=== PATIENT | female | born 1980 | race African-American/Black ===

== ENCOUNTER 2017-12-01 01:18 | Emergency (ER) | payer OTHER ==
--- OUTSIDE RECORDS SUMMARY | 2017-12-01 01:21 | XMS REPORT | Clinical Summary ---
:1980 Author Organization [facility] Address [address] [place] [address] Phone Care Team Providers Name Role Phone Unavailable Primary Care Provider Unavailable Allergies Active Allergy Reactions Severity Noted Date Comments Tramadol Other (See Comments) High 02/21/2014 Seizure Morphine Other (See Comments) 11/27/2013 seizures Butorphanol Tartrate Other (See Comments) 11/27/2013 seizures Eij-[id number]-Ujn-[id number]-Qkghr-Jesb 10/01/2014 seizure Ketorolac Other (See Comments) 11/27/2013 seizures Trazodone 10/01/2014 seizure Ondansetron Hcl (Pf) Other (See Comments) 11/27/2013 seizures Current Medications Prescription Sig. Disp. Refills Start Date End Date Status folic acid (FOLVITE) Take 1 mg by Active 1 MG tablet mouth daily. hydroxyurea (DROXIA) Take 500 mg by Active 500 mg capsule mouth 2 (two) times daily . metoprolol Take 25 mg by Active (LOPRESSOR) 25 MG mouth 3 (three) tablet times daily. oxymorphone (OPANA Take 40 mg by Active ER) 40 MG 12 hr mouth every 12 tablet (twelve) hours. ALPRAZolam (XANAX) 2 Take 2 mg by Active MG tablet mouth 2 (two) times daily as needed for Sleep. promethazine Take 25 mg by Active (PHENERGAN) 25 MG mouth every 6 tablet (six) hours as needed for Nausea. amLODIPine (NORVASC) Take 5 mg by Active 5 MG tablet mouth daily. HYDROcodone-acetamino Take 2 tablets Active phen (NORCO 10-325) by mouth every 4 10-325 mg per (four) hours as tabletIndications: needed for Pain. Pain mirtazapine (REMERON) Take 45 mg by Active 45 MG mouth nightly. tabletIndications: major depressive disorder levETIRAcetam Take 250 mg by Active (KEPPRA) 250 MG mouth 2 (two) tabletIndications: times daily. Partial Epilepsy Treatment Adjunct triamcinolone Apply topically Active (KENALOG) 0.1 % 3 (three) times lotionIndications: daily. Contact Dermatitis, Skin Rash aspirin 81 MG Take 1 tablet 30 tablet 11 04/06/2016 04/06/2017 chewable tablet (81 mg total) by mouth daily. atorvastatin Take 1 tablet 30 tablet 11 04/06/2016 04/06/2017 (LIPITOR) 80 MG (80 mg total) by tablet mouth nightly. Hospital, Clinic, or Ordered Dose Route Frequency Start Date End Date Status Other Facility Administered Medication promethazine 25 MG IV Once 05/04/2017 Active (PHENERGAN) injection 25 mg heparin (PF) injection 500 Units Cath Once 03/27/2017 03/27/2017 Ended syringe 500 Units sodium chloride 0.9% IV Once 03/28/2017 03/28/2017 Ended (NS) infusion diphenhydrAMINE 25 MG IV Once 03/28/2017 03/28/2017 Ended (BENADRYL) injection 25 mg acetaminophen 650 MG Oral Once 03/28/2017 03/28/2017 Ended (TYLENOL) tablet 650 mg heparin (PF) injection 500 Units Cath PRN 03/28/2017 03/28/2017 Ended syringe 500 Units promethazine IV Once 03/28/2017 03/28/2017 Discontinued (PHENERGAN) 50 mg in sodium chloride 0.9% (NS) 50 mL IVPB promethazine 25 MG IV Once 03/28/2017 03/28/2017 Ended (PHENERGAN) injection 25 mg heparin (PF) injection 500 Units Cath Once 05/03/2017 05/03/2017 Ended syringe 500 Units sodium chloride 0.9% IV Once 05/04/2017 05/04/2017 Ended (NS) infusion diphenhydrAMINE 25 MG IV Once 05/04/2017 05/04/2017 Ended (BENADRYL) injection 25 mg acetaminophen 650 MG Oral Once 05/04/2017 05/04/2017 Ended (TYLENOL) tablet 650 mg heparin (PF) injection 500 Units Cath PRN 05/04/2017 05/04/2017 Ended syringe 500 Units heparin (PF) injection 500 Units Cath Once 09/25/2017 09/25/2017 Ended syringe 500 Units sodium chloride 0.9% IV Once 09/26/2017 09/26/2017 Ended (NS) infusion heparin (PF) injection 500 Units Cath Once PRN 09/26/2017 09/26/2017 Ended syringe 500 Units diphenhydrAMINE 25 MG IV Once 09/26/2017 09/26/2017 Ended (BENADRYL) injection 25 mg acetaminophen 650 MG Oral Once 09/26/2017 09/26/2017 Ended (TYLENOL) tablet 650 mg promethazine 25 MG IV Once 09/26/2017 09/26/2017 Ended (PHENERGAN) injection 25 mg Active Problems Problem Noted Date Sickle cell anemia (HCC) 01/09/2016 Pain 12/01/2013 Sickle cell anemia with crisis ([facility]) 11/30/2013 Iron overload due to repeated red blood cell transfusions 11/29/2013 History of drug abuse 11/29/2013 Sickle cell crisis (HCC) 11/28/2013 Total body pain 11/28/2013 Cough 11/28/2013 Encounters Date Type Specialty Care Team Description 11/22/2017 Procedure Pass 11/22/2017 Surgery Manny Fuentes MD 11/04/2017 - Hospital Encounter Oncology Lise De Jesus MD 11/26/2017 Vipul Mcgovern MD 09/26/2017 Procedure visit Oncology Kwesi Guaman Symptomatic anemia MD Justin (Primary Dx) Yaz Quan RN 09/25/2017 Procedure visit Oncology Kwesi Guaman 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) (Primary Traci Obregon, RN Dx) 05/27/2017 - Hospital Encounter Oncology Lise De Jesus MD History of drug abuse 06/06/2017 05/04/2017 Procedure visit Oncology Kwesi Guaman Symptomatic anemia MD Justin (Primary Dx) Traci Obregon, RN 05/03/2017 Procedure visit Oncology Kwesi Guaman Iron overload due to MD Justin repeated red blood Traci Obregon, RN cell transfusions (Primary Dx) 03/28/2017 Procedure visit Oncology Kwesi Guaman 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) (Primary Yaz Quan, Dx) RN 03/27/2017 Procedure visit Oncology Kwesi Guaman 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) (Primary Traci Obregon, RN Dx) after 11/30/2016 Family History Medical History Relation Name Comments Heart disease Father Hypertension Father Hypertension Mother Relation Name Status Comments Father Mother Social History Tobacco Use Types Packs/Day Years Used Date Never Smoker Smokeless Tobacco: Never Used Alcohol Use Drinks/Week oz/Week Comments No Sex Assigned at Date Recorded Not on file Last Filed Vital Signs Vital Sign Reading Time Taken Blood Pressure 107/58 11/26/2017 3:32 PM CDT Pulse 79 11/26/2017 3:32 PM CDT Temperature 36.7 C (98 F) 11/26/2017 3:32 PM CDT Respiratory Rate 20 11/26/2017 3:32 PM CDT Oxygen Saturation 100% 11/26/2017 3:32 PM CDT Inhaled Oxygen Concentration - - Weight 72.5 kg (159 lb 13.3 oz) 11/04/2017 9:54 PM CDT Height 160 cm (5' 3") 11/04/2017 9:54 PM CDT Body Mass Index 28.31 11/04/2017 9:54 PM CDT Plan of Treatment Health Maintenance Due Date Last Done Comments INFLUENZA VACCINE 05/20/2018 Procedures Procedure Name Priority Date/Time Associated Diagnosis Comments R CATH 11/22/2017 1:14 PM CDT chest pain after 11/30/2016 Results CARDIAC CATH REPORT - SCAN (11/27/2017 8:52 PM)Calcium, Ionized (11/25/2017 4: 38 AM)Only the most recent of14 resultswithin the time period is included. Component Value Ref Range Calcium, Ion 1.10 (L) 1.12 - 1.27 mmol/L pH, Blood 7.30 Specimen Performing Laboratory Blood [address] [address] Phosphorus (11/25/2017 4:38 AM)Only the most recent of15 resultswithin the time period is included. Component Value Ref Range Phosphorus 4.7 2.3 - 4.7 mg/dL Specimen Performing Laboratory Blood [address] [address] Magnesium (11/25/2017 4:38 AM)Only the most recent of16 resultswithin the time period is included. Component Value Ref Range Magnesium 1.4 (L) 1.6 - 2.6 mg/dL Specimen Performing Laboratory Blood [address] [address] Basic Metabolic Panel (11/25/2017 4:38 AM)Only the most recent of27 resultswithin the time period is included. Component Value Ref Range Sodium 135 (L) 136 - 145 meq/L Potassium 4.5 3.5 - 5.1 meq/L Chloride 100 98 - 107 meq/L CO2 29 22 - 29 meq/L BUN 19 7 - 21 mg/dL Creatinine 0.76 0.57 - 1.25 mg/dL Glucose 104 70 - 105 mg/dL Calcium 9.3 8.4 - 10.2 mg/dL EGFR 103Comment: ESTIMATED GFR IS NOT ACCURATE mL/min/1.73 sq m CREATININE CLEARANCE IN PREDICTING GLOMERULAR FILTRATION RATE. ESTIMATED GFR IS NOT APPLICABLE FOR DIALYSIS PATIENTS. Specimen Performing Laboratory Blood [address] [address] Uric acid (11/24/2017 5:36 AM) Component Value Ref Range Uric Acid 4.8 2.6 - 7.2 mg/dL Specimen Performing Laboratory Blood [address] [address] Lactate dehydrogenase (LDH) (11/24/2017 5:36 AM) Component Value Ref Range LDH 489 (H) 125 - 220 U/L Specimen Performing Laboratory Blood [address] [address] Creatine Kinase (CK) (11/24/2017 5:36 AM) Component Value Ref Range Total CK 8 (L) 29 - 200 U/L Specimen Performing Laboratory Blood [address] [address] Potassium (11/23/2017 5:35 PM)Only the most recent of3 resultswithin the time period is included. Component Value Ref Range Potassium 5.5 (H) 3.5 - 5.1 meq/L Specimen Performing Laboratory Blood - Central Venous Line [address] [address] Narrative Call if K > 5.4 to renal [phone] CBC with platelet count + automated diff (11/23/2017 4:50 AM)Only the most recent of26 resultswithin the time period is included. Component Value Ref Range WBC 18.3 (H) 3.5 - 10.5 K/L RBC 2.30 (L) 3.93 - 5.22 M/L Hemoglobin 6.5 (L) 11.2 - 15.7 GM/DL Hematocrit 21.1 (L) 34.1 - 44.9 % MCV 91.7 79.4 - 94.8 fL MCH 28.3 25.6 - 32.2 pg MCHC 30.8 (L) 32.2 - 35.5 GM/DL RDW 21.2 (H) 11.7 - 14.4 % Platelets 414 150 - 450 K/CU MM MPV 11.5 9.4 - 12.3 fL nRBC 0 0 - 0 /100 WBC % Neutros 53 % % Lymphs 25 % % Monos 19 % % Eos 2 % % Baso 0 % # Neutros 9.74 (H) 1.56 - 6.13 K/L # Lymphs 4.57 (H) 1.18 - 3.74 K/L # Monos 3.51 (H) 0.24 - 0.36 K/L # Eos 0.29 0.04 - 0.36 K/L # Baso 0.07 0.01 - 0.08 K/L Immature Granulocytes-Relative 1 0 - 1 % Specimen Performing Laboratory Blood [facility] [address] [place] [address] CBC with platelet count + automated diff (11/23/2017 4:50 AM)Only the most recent of26 resultswithin the time period is included. Specimen Performing Laboratory Blood Narrative The following orders were created for panel order CBC with platelet count + automated diff. Procedure Abnormality Status --------- ------ CBC with platelet count ...[[id number]]AbnormalFinal result Please view results for these tests on the individual orders. Electrolytes (11/22/2017 12:30 PM) Component Value Ref Range Sodium 137 136 - 145 meq/L Potassium 5.4 (H) 3.5 - 5.1 meq/L Chloride 100 98 - 107 meq/L CO2 30 (H) 22 - 29 meq/L Specimen Performing Laboratory Blood [address] [address] Narrative Call results [id number] B-type Natriuretic Factor (BNP) (11/21/2017 4:56 AM)Only the most recent of3 resultswithin the time period is included. Component Value Ref Range BNP 120 (H) 0 - 100 pg/mL Specimen Performing Laboratory Blood [address] [address] Blood gas, venous (11/20/2017 6:44 AM) Component Value Ref Range pH, Moises 7.34 7.32 - 7.42 pCO2, Moises 63 (H) 41 - 51 mmHg pO2, Moises 133 (H) 25 - 40 mmHg O2 Sat, Moises 98.4 (H) 40.0 - 70.0 % HCO3, Moises 33 (H) 21 - 29 mmol/L Base Excess, Moises 6.6 (H) -2.0 - 3.0 mmol/L Patient Temperature 37.0 C FIO2 21.0 % Specimen Performing Laboratory Blood [address] [address] Ferritin (11/19/2017 9:46 AM) Component Value Ref Range Ferritin [address] (H) 5 - 275 ng/mL Specimen Performing Laboratory [address] [address] CBC (Hemogram only) (11/19/2017 6:25 AM) Component Value Ref Range WBC 15.3 (H) 3.5 - 10.5 K/L RBC 2.42 (L) 3.93 - 5.22 M/L Hemoglobin 7.1 (L) 11.2 - 15.7 GM/DL Hematocrit 22.5 (L) 34.1 - 44.9 % MCV 93.0 79.4 - 94.8 fL MCH 29.3 25.6 - 32.2 pg MCHC 31.6 (L) 32.2 - 35.5 GM/DL RDW 20.9 (H) 11.7 - 14.4 % Platelets 324 150 - 450 K/CU MM MPV 11.8 9.4 - 12.3 fL nRBC 1 (H) 0 - 0 /100 WBC Specimen Performing Laboratory Blood - Central Venous Line [address] [address] TRANSFUSION SERVICE REPORT - SCAN (11/17/2017 5:40 PM)Only the most recent of23 resultswithin the time period is included.Hepatic function panel (2017 4:51 AM)Only the most recent of2 resultswithin the time period is included. Component Value Ref Range Protein, Total 8.3 6.0 - 8.3 gm/dL Albumin 3.0 (L) 3.5 - 5.0 g/dL Total Bilirubin 1.3 (H) 0.2 - 1.2 mg/dL Bilirubin, Direct 0.7 (H) 0.1 - 0.5 mg/dL Alkaline Phosphatase 217 (H) 40 - 150 U/L AST 106 (H) 5 - 34 U/L ALT 46 6 - 55 U/L Specimen Performing Laboratory Blood - Central Venous Line [address] [address] Prepare RBC (11/16/2017 11:55 PM) Component Value Ref Range Unit ABO O Pos UNIT NUMBER [id number] Status TRANSFUSED Blood Bank Product RED BLOOD CELLS PRODUCT CODE T8550X31 Unit ABO O Pos UNIT NUMBER [id number] Status TRANSFUSED Blood Bank Product RED BLOOD CELLS PRODUCT CODE [id number] CROSSMATCH COMPATIBLE CROSSMATCH COMPATIBLE Specimen Performing Laboratory [employer] [place] XR chest 2 views (11/16/2017 10:46 AM) Specimen Performing Laboratory [facility] Narrative FINAL REPORT Chest two views INDICATION: Fever, chest pain COMPARISON: 11/08/2017 IMPRESSION: The cardiac silhouette is enlarged. There is pulmonary vascular congestion with interstitial reticulation suggesting mild edema. Trace pleural effusions are present with improved basilar opacities, likely atelectasis. Pneumonitis cannot be excluded, however. A Port-A-Cath, osteopenia, and chronic left clavicular fracture are noted. No pneumothorax is seen. Signed: Anselmo Cain MD Report Verified Date/Time:11/16/2017 10:47:19 Reading Location: [facility] Radiology Reading Room Procedure Note Interface, External Ris In - 11/16/2017 10:49 AM CDT FINAL REPORT Chest two views INDICATION: Fever, chest pain COMPARISON: 11/08/2017 IMPRESSION: The cardiac silhouette is enlarged. There is pulmonary vascular congestion with interstitial reticulation suggesting mild edema. Trace pleural effusions are present with improved basilar opacities, likely atelectasis. Pneumonitis cannot be excluded, however. A Port-A-Cath, osteopenia, and chronic left clavicular fracture are noted. No pneumothorax is seen. Signed: Anselmo Cain MD Report Verified Date/Time: 11/16/2017 10:47:19 Reading Location: [facility] Radiology Reading Room mandible less than 4 views (11/16/2017 10:37 AM) Specimen Performing Laboratory GE [facility] Narrative FINAL REPORT Mandible series 5 images INDICATION: Fever, dental caries COMPARISON: None available IMPRESSION: A tongue piercing is present. The maxilla is edentulous. There are mandibular dental caries with periapical lucency on the right suggesting endodontal infection. Maxillofacial CT can be obtained for more sensitive evaluation. The bones appear demineralized. There is cervical spondylosis. The sinuses and mastoid air cells are well aerated. Signed: Anselmo Cain MD Report Verified Date/Time:11/16/2017 12:28:43 Reading Location: [facility] Radiology Reading Room Procedure Note Interface, External Ris In - 11/16/2017 12:30 PM CDT FINAL REPORT Mandible series 5 images INDICATION: Fever, dental caries COMPARISON: None available IMPRESSION: A tongue piercing is present. The maxilla is edentulous. There are mandibular dental caries with periapical lucency on the right suggesting endodontal infection. Maxillofacial CT can be obtained for more sensitive evaluation. The bones appear demineralized. There is cervical spondylosis. The sinuses and mastoid air cells are well aerated. Signed: Anselmo Cain MD Report Verified Date/Time: 11/16/2017 12:28:43 Reading Location: [facility] Reading Room Anti-Mitochondrial Ab, reflex to titer (11/16/2017 9:35 AM) Component Value Ref Range Scan Result Specimen Performing Laboratory Blood - Central Venous Line [facility] [address] [address] Actin (Smooth Muscle) Antibody, IgG (11/16/2017 9:35 AM) Component Value Ref Range Anti-Smooth Muscle Ab 31 (H) See Note: U Comment: Reference Range: <20 NEGATIVE > OR=20 POSITIVE Antibodies recognizing actin are the main component of smooth muscle antibodies associated with autoimmune liver disease. Actin antibodies are found in approximately 75% of patients with autoimmune hepatitis (AIH) type 1, approximately 65% of patients with autoimmune cholangitis, approximately 30% of patients with primary biliary cirrhosis, and approximately 2% of healthy people. High values are closely correlated with AIH type 1. Specimen Performing Laboratory Blood - Central Venous Line [facility] [address] [address] Narrative Performing Lab [facility] [address] [address] Irwin Marquez MD, PhD AMARILYS Titer & Pattern (11/16/2017 9:35 AM) Component Value Ref Range AMARILYS Titer 1:160 AMARILYS Pattern Multiple nuclear dots pattern Specimen Performing Laboratory Blood - Central Venous Line [address] [address] Hepatitis panel, acute (11/16/2017 9:35 AM) Component Value Ref Range Hep A IgM Nonreactive Nonreactive Hep B C IgM Nonreactive Nonreactive Hepatitis C Ab Nonreactive Nonreactive hepatitis B Surface Ag Nonreactive Nonreactive Specimen Performing Laboratory Blood - Central Venous Line [address] [address] Anti-Nuclear Antibody (AMARILYS) (11/16/2017 9:35 AM) Component Value Ref Range AMARILYS Positive (A) Negative Specimen Performing Laboratory Blood - Central Venous Line [address] [address] Manual Differential (11/16/2017 4:23 AM)Only the most recent of16 resultswithin the time period is included. Component Value Ref Range Total Counted WBC Morphology Normal Platelet Morphology Normal Polychromasia 1+ few Sickle Cells 1+ few Target Cells 2+ moderate Specimen Performing Laboratory Blood - Central Venous Line [address] [address] Transfuse Leuko-Red RBC (11/15/2017 11:12 PM)Only the most recent of10 resultswithin the time period is included.Urinalysis w/Microscopic (11/15/2017 6:45 PM)Only the most recent of4 resultswithin the time period is included. Component Value Ref Range Color, UA Yellow Clarity, UA Clear Specific [place], UA 1.006 1.001 - 1.035 pH, UA 7.5 5.0 - 8.0 Protein, UA Negative Negative Glucose, UA Negative Negative Ketones, UA Negative Negative Bilirubin, UA Negative Negative Blood, UA Trace (A) Negative Nitrite, UA Negative Negative Leukocytes, UA Small (A) Negative Urobilinogen, UA 0.2 0.2 - 1.0 mg/dL RBC, UA <1 /HPF WBC, UA 7 /HPF Bacteria, UA Rare Squam Epithel, UA 1 /HPF Specimen Source Urine, Voided Specimen Performing Laboratory Urine - Urine, Voided [address] [address] Prepare Leuko-Red RBC (11/15/2017 1:30 PM)Only the most recent of7 resultswithin the time period is included. Component Value Ref Range Unit ABO O Pos UNIT NUMBER [id number] Status WORK IN PROGRESS Blood Bank Product RED BLOOD CELLS PRODUCT CODE E7775A15 Unit ABO O Pos UNIT NUMBER [id number] Status CANCELED Blood Bank Product RED BLOOD CELLS PRODUCT CODE [id number] Specimen Performing Laboratory Other [facility] [place] XR abdomen / KUB 1 view (11/15/2017 12:05 PM) Specimen Performing Laboratory [facility] Narrative FINAL REPORT Abdomen one view INDICATION: Abdominal pain COMPARISON: 03/29/2016 IMPRESSION: Two frontal images of the abdomen are provided. The liver shadow appears enlarged. Right upper quadrant surgical clips are present. A nonspecific calcification overlies the right lower quadrant. Pelvic calcifications are stable and suggests phleboliths. There is moderate retained colonic feces. The bowel gas pattern is nonspecific. There are nonspecific mild lung base opacities. Signed: Anselmo Cain MD Report Verified Date/Time:11/15/2017 12:43:04 Reading Location: [facility] Radiology Reading Room Procedure Note Interface, External Ris In - 11/15/2017 12:57 PM CDT FINAL REPORT Abdomen one view INDICATION: Abdominal pain COMPARISON: 03/29/2016 IMPRESSION: Two frontal images of the abdomen are provided. The liver shadow appears enlarged. Right upper quadrant surgical clips are present. A nonspecific calcification overlies the right lower quadrant. Pelvic calcifications are stable and suggests phleboliths. There is moderate retained colonic feces. The bowel gas pattern is nonspecific. There are nonspecific mild lung base opacities. Signed: Anselmo Cain MD Report Verified Date/Time: 11/15/2017 12:43:04 Reading Location: [facility] Radiology Reading Room Antibody identification (11/15/2017 11:17 AM)Only the most recent of7 resultswithin the time period is included. Component Value Ref Range ANTIBODY ID (BEAKER) Anti-Bg Anti-Cw Anti-E Anti-S Anti-c COLD ANTIBODY UNID IgG WARM AUTO AB Antibody Consult SIGNED OUTComment: Anti E causes RBC injury, transfuse E negative RBCs.Anti c causes RBC injury, transfuse c negative RBCs. History of anti-S, Cw and Bg.Electronic Signature: Karina Hendrix M.D. Specimen Performing Laboratory [facility] [place] Type and screen, automated (11/15/2017 8:54 AM)Only the most recent of7 resultswithin the time period is included. Component Value Ref Range ABO/RH AUTOMATED (BEAKER) O POSITIVE Ab Scrn POSITIVE Specimen Performing Laboratory Blood [facility] [address] [place] [address] [place] Endovaginal (11/15/2017 7:00 AM) Specimen Performing Laboratory [facility] Narrative FINAL REPORT TECHNIQUE: Transvaginal grayscale ultrasound of the pelvis with color Doppler and spectral Doppler ultrasound of the ovaries. INDICATION: 37-year-old woman with complex ovarian cyst on recent CT. COMPARISON: Abdomen and pelvis CT 11/08/2017. FINDINGS: UTERUS: Prior hysterectomy. OVARIES/ADNEXA: The right ovary measures 2.6 x 2.6 x 2.2 cm and contains a 2.1 x 1.7 x 2 cm structure with areas of fluid as well as areas of hyper echogenicity which likely correlates with fat seen on recent CT. The left ovary is normal in appearance and measures 2.5 x 1.4 x 1.6 cm. Arterial and venous flow detected in both ovaries. PELVIS: Trace free fluid in the right adnexum, nonspecific. IMPRESSION: Complex structure in the right ovary correlating with fat-containing structure seen on recent CT, consistent with a dermoid. Left ovary is unremarkable. RECOMMENDATION: Pelvis MRI with and without intravenous contrast is recommended to further characterize right ovarian dermoid. Signed: Funmilayo Gonzalez MD Report Verified Date/Time:11/15/2017 09:03:15 Reading Location: [address] Ultrasound Reading Room Procedure Note Interface, External Ris In - 11/15/2017 9:05 AM CDT FINAL REPORT TECHNIQUE: Transvaginal grayscale ultrasound of the pelvis with color Doppler and spectral Doppler ultrasound of the ovaries. INDICATION: 37-year-old woman with complex ovarian cyst on recent CT. COMPARISON: Abdomen and pelvis CT 11/08/2017. FINDINGS: UTERUS: Prior hysterectomy. OVARIES/ADNEXA: The right ovary measures 2.6 x 2.6 x 2.2 cm and contains a 2.1 x 1.7 x 2 cm structure with areas of fluid as well as areas of hyper echogenicity which likely correlates with fat seen on recent CT. The left ovary is normal in appearance and measures 2.5 x 1.4 x 1.6 cm. Arterial and venous flow detected in both ovaries. PELVIS: Trace free fluid in the right adnexum, nonspecific. IMPRESSION: Complex structure in the right ovary correlating with fat-containing structure seen on recent CT, consistent with a dermoid. Left ovary is unremarkable. RECOMMENDATION: Pelvis MRI with and without intravenous contrast is recommended to further characterize right ovarian dermoid. Signed: Funmilayo Gonzalez MD Report Verified Date/Time: 11/15/2017 09:03:15 Reading Location: [address] Ultrasound Reading Room Lipase (11/15/2017 5:30 AM) Component Value Ref Range Lipase 95 (H) 8 - 78 U/L Specimen Performing Laboratory Blood - Central Venous Line [address] [address] Urine culture (11/14/2017 6:19 AM)Only the most recent of2 resultswithin the time period is included. Component Value Ref Range Result >100,000 col/mL skin valentino Specimen Performing Laboratory Urine - Urine, Clean Catch [address] [address] Blood culture (11/13/2017 11:20 PM)Only the most recent of2 resultswithin the time period is included. Component Value Ref Range Result No growth in 5 days Specimen Performing Laboratory Blood - Portacath [address] [address] ECHOCARDIOGRAM REPORT - SCAN (11/10/2017 1:20 PM)Comprehensive metabolic panel (11/10/2017 5:56 AM)Only the most recent of4 resultswithin the time period is included. Component Value Ref Range Protein, Total 8.2 6.0 - 8.3 gm/dL Albumin 3.1 (L) 3.5 - 5.0 g/dL Alkaline Phosphatase 154 (H) 40 - 150 U/L Total Bilirubin 1.4 (H) 0.2 - 1.2 mg/dL Sodium 140 136 - 145 meq/L Potassium 4.0 3.5 - 5.1 meq/L Chloride 109 (H) 98 - 107 meq/L CO2 19 (L) 22 - 29 meq/L BUN 21 7 - 21 mg/dL Creatinine 1.27 (H) 0.57 - 1.25 mg/dL Glucose 122 (H) 70 - 105 mg/dL Calcium 8.6 8.4 - 10.2 mg/dL AST 72 (H) 5 - 34 U/L ALT 50 6 - 55 U/L EGFR 57Comment: ESTIMATED GFR IS NOT ACCURATE mL/min/1.73 sq m CREATININE CLEARANCE IN PREDICTING GLOMERULAR FILTRATION RATE. ESTIMATED GFR IS NOT APPLICABLE FOR DIALYSIS PATIENTS. Specimen Performing Laboratory Blood - Central Venous Line [address] [address] 2D Echo W/Doppler(CW/PW/Color) (11/09/2017 6:46 PM) Component Value Ref Range Ejection Fraction Specimen Performing Laboratory [facility] ECHO [facility] MKCKESSON CPACS Narrative Transthoracic Echocardiography Report (TTE) Demographics Patient NameSGATITO, RODRIGODate of Study11/09/2017 DIANA Gender Female Visit [id number] Race Black [id number] Number Date of 1980 [facility] Physician Age 37 year(s) Cutter First Lou Price RDCS Interpreting [facility] Needs to be Pre Physician Read Marlo Maldonado MD FellowVANNA Lorenzana Procedure Type of Study TTE procedure:2DECHO W DOPPLER(CW/PW/COLOR) (STAT) Indications:Shortness of breath. Clinical History SICKLE CELL ANEMIA;ENDOCARDITIS;STROKE HGB 6.6 HCT 20.4 % Height: 63 inches Weight: 72.12 kg (159 lbs) BSA: 1.75 m^2 BMI: 28.17 kg/m^2 HR: 94 bpm BP: 148/98 mmHg Summary The left ventricle is chamber size (by vol index) is normal (female - LVED vol - 29-61ml/m2). Borderline concentric LV hypertrophy. All of the LV segments contract normally . Global LV systolic function normal . LVEF by Stanley's method of disk assessment is normal (60%) . LV diastolic function is indeterminate. RV chamber size is normal . Global RV systolic function is normal . Estimated peak systolic PA pressure is 50-55 mmHg . No significant pericardial effusion is visualized. The estimated RA pressure by IVC dynamics 16-20mmHg . Previous Study In comparison with the prior exam 03/29/2016 the following changes are noted: increase in TR . Signature Findings Left Ventricle The left ventricle is chamber size (by vol index) is normal (female - LVED vol - 29-61ml/m2). Borderline concentric LV hypertrophy. All of the LV segments contract normally . Global LV systolic function normal . LVEF by Stanley's method of disk assessment is normal (60%) . LV diastolic function is indeterminate. Left AtriumLA size is mildly enlarged (35-41 ml/m2) . Right VentricleRV chamber size is normal . Global RV systolic function is normal . Right Atrium RA size is mildly dilated. Aortic Valve Normal AoV structure and function. Mitral Valve Normal MV structure and function. Tricuspid ValveModerate tricuspid regurgitation. Estimated peak systolic PA pressure is 50-55 mmHg . Pulmonic Valve PV is not well visualized. A trace of pulmonary regurgitation. AortaAortic root size (SInus of Valsalva diameter) is normal . PericardiumNo significant pericardial effusion is visualized. IVC/SVC/PA/PV/PleuralThe estimated RA pressure by IVC dynamics 16-20mmHg . Chambers/Structures Left Atrium LA Volume: 65.17 ml LA Area: 22.65 cm^ 2 LA Vol. Index: 37 ml/m^2 Left Ventricle LVIDd: 5.09 cm LVIDs: 3.2 cm LV Septum Diastolic: 1.17 cm LV PW Diastolic: 1.06 cmLV FS: 37.1 % LVEDV Stanley's:102.27 ml LVESV Stanley's:40.53 mlLVEDVI: 58 ml/ m^2 LVEF Stanley's: 60.4 %LVESVI: 23 ml/m^2 LVOT Diameter: 1.95 cm Doppler/Quantitative Measurements Mitral Valve MV Peak E-Wave: 0.82 m/sMV Peak A-Wave: 0.8 m/s E/A Ratio: 1.03 Peak Gradient: 2.69 mmHg MV Kuldip. Peak: Tissue Doppler E' Lateral Velocity: 0.13 m/s E/E': 6.13 Aortic Valve Peak Velocity: 1.85 m/sMean Velocity: 1.27 m/s Peak Gradient: 13.64 mmHgMean Gradient: 7.16 mmHg AV Area (continuity): 1.94 cm^2 AV VTI: 35.76 cm AV DVI: 0.65 LVOT Peak Velocity: 1.28 m/s Peak Gradient: 6.53 mmHg Mean Velocity: 0.81 m/s Mean Gradient: 3.12 mmHg LVOT Diameter: 1.95 cmLVOT VTI: 23.22 cm LVOT Area: 2.99 cm^2LVOT SV:69.31 ml LVOT CO: 6.52 l/min LVOT CI: 3.73 l/min/m^2 Tricuspid Valve TR Velocity: 2.91 m/s TR Gradient: 33.98 mmHg Procedure Note Interface, External Ris In - 11/10/2017 12:55 PM CDT Transthoracic Echocardiography Report (TTE) Demographics Patient Name RODRIGO BERG Date of Study 11/09/2017 DIANA Gender Female Visit Number [id number] Race Black Room Number [id number] Number Date of 1980 Referring Neal Lezama Physician Age 37 year(s) Cutter First Lou Price RDCS Interpreting [facility] Needs to be Pre Physician Read Marlo Maldonado MD Fellow VANNA Lorenzana Procedure Type of Study TTE procedure:2DECHO W DOPPLER(CW/PW/COLOR) (STAT) Indications:Shortness of breath. Clinical History SICKLE CELL ANEMIA;ENDOCARDITIS;STROKE HGB 6.6 HCT 20.4 % Height: 63 inches Weight: 72.12 kg (159 lbs) BSA: 1.75 m^2 BMI: 28.17 kg/m^2 HR: 94 bpm BP: 148/98 mmHg Summary The left ventricle is chamber size (by vol index) is normal (female - LVED vol - 29-61ml/m2). Borderline concentric LV hypertrophy. All of the LV segments contract normally . Global LV systolic function normal . LVEF by Stanley's method of disk assessment is normal (60%) . LV diastolic function is indeterminate. RV chamber size is normal . Global RV systolic function is normal . Estimated peak systolic PA pressure is 50-55 mmHg . No significant pericardial effusion is visualized. The estimated RA pressure by IVC dynamics 16-20mmHg . Previous Study In comparison with the prior exam 03/29/2016 the following changes are noted: increase in TR . Signature Findings Left Ventricle The left ventricle is chamber size (by vol index) is normal (female - LVED vol - 29-61ml/m2). Borderline concentric LV hypertrophy. All of the LV segments contract normally . Global LV systolic function normal . LVEF by Stanley's method of disk assessment is normal (60%) . LV diastolic function is indeterminate. Left Atrium LA size is mildly enlarged (35-41 ml/m2) . Right Ventricle RV chamber size is normal . Global RV systolic function is normal . Right Atrium RA size is mildly dilated. Aortic Valve Normal AoV structure and function. Mitral Valve Normal MV structure and function. Tricuspid Valve Moderate tricuspid regurgitation. Estimated peak systolic PA pressure is 50-55 mmHg . Pulmonic Valve PV is not well visualized. A trace of pulmonary regurgitation. Aorta Aortic root size (SInus of Valsalva diameter) is normal . Pericardium No significant pericardial effusion is visualized. IVC/SVC/PA/PV/Pleural The estimated RA pressure by IVC dynamics 16-20mmHg . Chambers/Structures Left Atrium LA Volume: 65.17 ml LA Area: 22.65 cm^2 LA Vol. Index: 37 ml/m^2 Left Ventricle LVIDd: 5.09 cm LVIDs: 3.2 cm LV Septum Diastolic: 1.17 cm LV PW Diastolic: 1.06 cm LV FS: 37.1 % LVEDV Stanley's:102.27 ml LVESV Stanley's:40.53 ml LVEDVI: 58 ml/m^2 LVEF Stanley's: 60.4 % LVESVI: 23 ml/m^2 LVOT Diameter: 1.95 cm Doppler/Quantitative Measurements Mitral Valve MV Peak E-Wave: 0.82 m/s MV Peak A-Wave: 0.8 m/s E/A Ratio: 1.03 Peak Gradient: 2.69 mmHg MV Kuldip. Peak: Tissue Doppler E' Lateral Velocity: 0.13 m/s E/E': 6.13 Aortic Valve Peak Velocity: 1.85 m/s Mean Velocity: 1.27 m/s Peak Gradient: 13.64 mmHg Mean Gradient: 7.16 mmHg AV Area (continuity): 1.94 cm^2 AV VTI: 35.76 cm AV DVI: 0.65 LVOT Peak Velocity: 1.28 m/s Peak Gradient: 6.53 mmHg Mean Velocity: 0.81 m/s Mean Gradient: 3.12 mmHg LVOT Diameter: 1.95 cm LVOT VTI: 23.22 cm LVOT Area: 2.99 cm^2 LVOT SV:69.31 ml LVOT CO: 6.52 l/min LVOT CI: 3.73 l/min/m^2 Tricuspid Valve TR Velocity: 2.91 m/s TR Gradient: 33.98 mmHg XR chest 1 view portable / bedside (11/08/2017 7:20 PM) Specimen Performing Laboratory Yub Narrative FINAL REPORT EXAMINATION:AP PORTABLE CHEST RADIOGRAPH CLINICAL INDICATION: Pulmonary edema IMPRESSION: Compared with 04/01/2016. Overall the lung volumes and improved in the interval. However, opacities are again noted in both lungs, most conspicuous in the perihilar regions and lung bases. Although a component of atelectasis is suspected, mild superimposed pulmonary edema or an underlying pneumonia should also be considered. Superimposed bilateral pleural effusions are again noted, stable. The heart is enlarged as before. Mediastinal contours are grossly unchanged. No evidence of a pneumothorax. A right-sided Port-A-Cath is again noted with the tip projecting over the right atrium. In summary, constellation of findings concerning for fluid overload/heart failure. Signed: Cliff Salcido MD Report Verified Date/Time:11/08/2017 20:41:24 Reading Location: [address] Reading Room Procedure Note Interface, External Ris In - 11/08/2017 8:43 PM CDT FINAL REPORT EXAMINATION: AP PORTABLE CHEST RADIOGRAPH CLINICAL INDICATION: Pulmonary edema IMPRESSION: Compared with 04/01/2016. Overall the lung volumes and improved in the interval. However, opacities are again noted in both lungs, most conspicuous in the perihilar regions and lung bases. Although a component of atelectasis is suspected, mild superimposed pulmonary edema or an underlying pneumonia should also be considered. Superimposed bilateral pleural effusions are again noted, stable. The heart is enlarged as before. Mediastinal contours are grossly unchanged. No evidence of a pneumothorax. A right-sided Port-A-Cath is again noted with the tip projecting over the right atrium. In summary, constellation of findings concerning for fluid overload/heart failure. Signed: Cliff Salcido MD Report Verified Date/Time: 11/08/2017 20:41:24 Reading Location: [address] Reading Room Sodium, random urine (11/08/2017 5:33 AM) Component Value Ref Range Sodium Urine 65 meq/L Specimen Performing Laboratory Urine - Urine, Voided [address] [address] Narrative Reference Range: No Normals Protein, random urine (11/08/2017 5:33 AM) Component Value Ref Range Protein, Urine 24 (H) 0 - 14 mg/dL Specimen Performing Laboratory Urine - Urine, Voided [address] [address] Creatinine, random urine (11/08/2017 5:33 AM) Component Value Ref Range Creatinine, Ur 46.0 mg/dL Specimen Performing Laboratory Urine - Urine, Voided [address] [address] Narrative Reference Range: No Normals Eosinophil smear (11/08/2017 5:33 AM) Component Value Ref Range Eosinophil Smear No EOS seen No EOS seen Specimen Performing Laboratory Urine - Urine, Voided [address] [address] [address] abdomen/pelvis without iv contrast (11/08/2017 3:01 AM) Specimen Performing Laboratory GE RIS Narrative FINAL REPORT HISTORY : Abdominal pain, unspecified Technique: Multiple axial images of the abdomen and pelvis were performed without the administration of IV or oral contrast. This exam was performed according to our departmental dose optimization program which includes automated exposure control, adjustment of the mA and/or kV according to patient size and/or use of iterative reconstructive technique. COMPARISON :10/12/2010 COMMENT : There are partially visualized small bilateral pleural effusions, left greater than right, with some adjacent consolidation that likely represent atelectasis. There is cardiomegaly. There is hepatomegaly. The liver is hyperdense and could be related to iron or amiodarone deposition. There is suspected cirrhotic morphology of the liver. Findings should be correlated with liver serologies. The patient is status post cholecystectomy. The visualized adrenal glands, kidneys, pancreas, stomach and duodenum are within normal limits. 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 There is no pelvic lymphadenopathy. As seen on the prior chest CT of 10/01/2014, there are some enlarged/prominent periportal and gastrohepatic lymph nodes. Also seen on the prior CT scan, in the upper abdomen, there is some nonspecific edema identified. This extends into the peripancreatic region. The findings should be correlated with amylase and lipase values to exclude a possibility of pancreatitis. Other etiologies cannot be excluded. There is also edema identified in the retroperitoneal region extending into the pelvis of unclear etiology/significance. Multilevel degenerative disc changes of the thoracolumbar spine are seen. There is anasarca. There is a small fat-containing umbilical hernia. No bowel contents are seen within the hernias, however. There is no free fluid or free air in the abdomen or pelvis. No findings of any bowel obstruction. The small bowel is within normal limits. There is colonic diverticulosis. There are no CT findings to suggest diverticulitis, however. The appendix is poorly visualized. However, grossly, there are no definite secondary CT findings to suggest appendicitis at this time. In the subcutaneous fat in the supraumbilical region, there is an indeterminant hypodensity measuring up to 2.1 cm. And has Hounsfield units of four. A small fluid collection cannot be excluded. Superinfection of the collection cannot be excluded. The findings can be assessed with a contrast-enhanced CT or ultrasound. The patient is status post hysterectomy. In the right ovary/adnexa, there is a complex mixed hyperdense and hypodense lesion measuring up to 2.9 x 2.5 cm. There may be some fat within the lesion. Correlation with a pelvic ultrasound is advised. A smaller focus is seen in the left ovary/adnexa. Impression: 1. Hepatomegaly with cirrhotic morphology of the liver. The liver is hyperdense. 2. Status post splenectomy. 3. Partially visualized small bilateral pleural effusions. 4. Slightly. 5. Stable enlarged upper abdominal and retroperitoneal lymph nodes. 6. Nonspecific retroperitoneal/upper abdominal edema extending into the pelvis of unclear etiology/significance. Correlation with amylase and lipase values is advised to exclude acute pancreatitis. 7. Complex heterogeneous lesions in the ovaries bilaterally. Correlation with pelvic ultrasound is advised. 8. Small fat-containing umbilical hernia. There is a hypodensity in the subcutaneous fat in the supraumbilical region that could represent a small fluid collection. Signed: Dami Muniz MD Report Verified Date/Time:11/08/2017 08:29:54 Reading Location: [facility] Diagnostic Imaging Reading Room - [place] [address] Procedure Note Interface, External Ris In - 11/08/2017 8:32 AM CDT FINAL REPORT HISTORY : Abdominal pain, unspecified Technique: Multiple axial images of the abdomen and pelvis were performed without the administration of IV or oral contrast. This exam was performed according to our departmental dose optimization program which includes automated exposure control, adjustment of the mA and/or kV according to patient size and/or use of iterative reconstructive technique. COMPARISON : 10/12/2010 COMMENT : There are partially visualized small bilateral pleural effusions, left greater than right, with some adjacent consolidation that likely represent atelectasis. There is cardiomegaly. There is hepatomegaly. The liver is hyperdense and could be related to iron or amiodarone deposition. There is suspected cirrhotic morphology of the liver. Findings should be correlated with liver serologies. The patient is status post cholecystectomy. The visualized adrenal glands, kidneys, pancreas, stomach and duodenum are within normal limits. 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 There is no pelvic lymphadenopathy. As seen on the prior chest CT of 10/01/2014, there are some enlarged/prominent periportal and gastrohepatic lymph nodes. Also seen on the prior CT scan, in the upper abdomen, there is some nonspecific edema identified. This extends into the peripancreatic region. The findings should be correlated with amylase and lipase values to exclude a possibility of pancreatitis. Other etiologies cannot be excluded. There is also edema identified in the retroperitoneal region extending into the pelvis of unclear etiology/significance. Multilevel degenerative disc changes of the thoracolumbar spine are seen. There is anasarca. There is a small fat-containing umbilical hernia. No bowel contents are seen within the hernias, however. There is no free fluid or free air in the abdomen or pelvis. No findings of any bowel obstruction. The small bowel is within normal limits. There is colonic diverticulosis. There are no CT findings to suggest diverticulitis, however. The appendix is poorly visualized. However, grossly, there are no definite secondary CT findings to suggest appendicitis at this time. In the subcutaneous fat in the supraumbilical region, there is an indeterminant hypodensity measuring up to 2.1 cm. And has Hounsfield units of four. A small fluid collection cannot be excluded. Superinfection of the collection cannot be excluded. The findings can be assessed with a contrast-enhanced CT or ultrasound. The patient is status post hysterectomy. In the right ovary/adnexa, there is a complex mixed hyperdense and hypodense lesion measuring up to 2.9 x 2.5 cm. There may be some fat within the lesion. Correlation with a pelvic ultrasound is advised. A smaller focus is seen in the left ovary/adnexa. Impression: 1. Hepatomegaly with cirrhotic morphology of the liver. The liver is hyperdense. 2. Status post splenectomy. 3. Partially visualized small bilateral pleural effusions. 4. Slightly. 5. Stable enlarged upper abdominal and retroperitoneal lymph nodes. 6. Nonspecific retroperitoneal/upper abdominal edema extending into the pelvis of unclear etiology/significance. Correlation with amylase and lipase values is advised to exclude acute pancreatitis. 7. Complex heterogeneous lesions in the ovaries bilaterally. Correlation with pelvic ultrasound is advised. 8. Small fat-containing umbilical hernia. There is a hypodensity in the subcutaneous fat in the supraumbilical region that could represent a small fluid collection. Signed: Dami Muniz MD Report Verified Date/Time: 11/08/2017 08:29:54 Reading Location: [facility] Diagnostic Imaging Reading Room - [facility] F1 1120 abdomen complete (11/07/2017 7:27 PM)Only the most recent of2 resultswithin the time period is included. Specimen Performing Laboratory GE RIS Narrative FINAL REPORT Abdominal ultrasound Clinical History:Abdominal pain Discussion: Sonographic evaluation of the the abdomen is performed. The liver is enlarged and measures 23.5 cm in length. The liver echotexture is normal, without focal mass. There is no intra or extrahepatic biliary dilatation. The common bile duct measures 7 mm. The gallbladder has been removed. The main portal vein diameter is normal,measuring 11 mm. The pancreas was not well seen secondary to bowel gas. There is no ascites. The right and the left kidney measure 13.9 and 13.9 cm in length respectively and are normal in size. There is no renal mass, hydronephrosis, or shadowing renal calculus. The spleen has been removed. Segments of the inferior vena cava and aorta visualized demonstrate no abnormality. Impression: 1. Status post cholecystectomy. 2. Status post splenectomy. 3. Hepatomegaly. Signed: Tomy Grullon MD Report Verified Date/Time:11/07/2017 19:58:17 Reading Location: [facility] [id number] Consult Reading Room Procedure Note Interface, External Ris In - 11/07/2017 8:00 PM CDT FINAL REPORT Abdominal ultrasound Clinical History: Abdominal pain Discussion: Sonographic evaluation of the the abdomen is performed. The liver is enlarged and measures 23.5 cm in length. The liver echotexture is normal, without focal mass. There is no intra or extrahepatic biliary dilatation. The common bile duct measures 7 mm. The gallbladder has been removed. The main portal vein diameter is normal, measuring 11 mm. The pancreas was not well seen secondary to bowel gas. There is no ascites. The right and the left kidney measure 13.9 and 13.9 cm in length respectively and are normal in size. There is no renal mass, hydronephrosis, or shadowing renal calculus. The spleen has been removed. Segments of the inferior vena cava and aorta visualized demonstrate no abnormality. Impression: 1. Status post cholecystectomy. 2. Status post splenectomy. 3. Hepatomegaly. Signed: Tomy Grullon MD Report Verified Date/Time: 11/07/2017 19:58:17 Reading Location: [facility] [id number] Consult Reading Room Lactic acid, venous, whole blood (11/07/2017 3:32 PM) Component Value Ref Range Lactate, Venous 0.9Comment: Specimen slightly hemolyzed 0.5 - 2.2 mmol/L Specimen Performing Laboratory Blood [place] [address] Narrative Effective 12/22/2015: Units/Reference Range Change New: 0.5-2.2 mmol/LPrevious: 5-20 mg/dL EKG-SCANNED (06/11/2017 10:10 AM)ECG 12 lead (06/05/2017 8:52 PM) Specimen Performing Laboratory [employer] MUSE Narrative Ventricular Rate 80 BPM Atrial Rate 80 BPM P-R Interval 180 ms QRS Duration 76 ms Q-T Interval 394 ms QTC Calculation(Bazett) 454 ms P [place] 49 degrees R [place] 20 degrees T [place] 34 degrees Normal sinus rhythm Normal ECG When compared with ECG of 15-SEP-2016 00:53, No significant change was found Confirmed by Wade GARCIA BASANT ([id number]) on 06/07/2017 1:13:44 PM Procedure Note Interface, External Ris In - 06/07/2017 1:13 PM CDT Ventricular Rate 80 BPM Atrial Rate 80 BPM P-R Interval 180 ms QRS Duration 76 ms Q-T Interval 394 ms QTC Calculation(Bazett) 454 ms P [place] 49 degrees R [place] 20 degrees T [place] 34 degrees Normal sinus rhythm Normal ECG When compared with ECG of 15-SEP-2016 00:53, No significant change was found Confirmed by Wade GARCIA BASANT ([id number]) on 06/07/2017 1:13:44 PM Troponin I (06/05/2017 8:40 PM) Component Value Ref Range Troponin I <0.01 0.00 - 0.03 ng/mL Specimen Performing Laboratory Blood - Central Venous Line [facility] [address] Narrative Troponin I (TnI) levels must be interpreted in the context of the presenting symptoms and the clinical findings. Elevated TnI levels indicate myocardial damage, but are not specific for ischemic heart disease. Elevated TnI levels are seen in patients with other cardiac conditions (including myocarditis and congestive heart failure), and slight TnI elevations occur in patients with other conditions, including sepsis, renal failure, acidosis, acute neurological disease, and persistent tachyarrhythmia. Creatine Kinase (CK), Total and MB (06/05/2017 8:40 PM) Component Value Ref Range Total CK 10 (L) 29 - 200 U/L CK-MB 0.1 0.0 - 6.6 ng/mL MB Relative Index 1.0Comment: Unable to Calculate % Specimen Performing Laboratory Blood - Central Venous Line [facility] [address] [address] Narrative CK-MB Reference Range: <6.7Normal 6.7-10.0Borderline >10.0 Abnormal after 11/30/2016
--- OUTSIDE RECORDS SUMMARY | 2017-12-01 01:25 | XMS REPORT ---
:1980 Author Organization [facility] Address [address] [place] [address] [address]. [address] [place] [address] Care Team Providers Name Role Phone TALISHA SORENSEN Unavailable Unavailable Problems This patient has no known problems. Allergies, Adverse Reactions, Alerts This patient has no known allergies or adverse reactions. Medications This patient has no known medications. Results Test Description Test Time Test Comments Text Results Atomic Results Result Comments ANTI-MITOCHONDRIAL AB, REFLEX TO TITER 2017-11-27 11:03:00 Test Item Value Reference Range Comments SCAN RESULT (test lkxg=[id number]) CALCIUM, [id number] 07:05:00 Test Item Value Reference Range Comments CALCIUM IONIZED (BEAKER) (test jzrp=466) 1.10 mmol/L 1.12-1.27 PH, BLOOD (BEAKER) (test qghr=5849) 7.30 [id number] 06:22:00 Test Item Value Reference Range Comments PHOSPHORUS (BEAKER) (test nxcr=207) 4.7 mg/dL 2.3-4.7 [id number] 06:22:00 Test Item Value Reference Range Comments MAGNESIUM (BEAKER) (test pods=216) 1.4 mg/dL 1.6-2.6 BASIC METABOLIC [id number] 06:22:00 Test Item Value Reference Range Comments SODIUM (BEAKER) (test 135 meq/L 136-145 obyy=052) POTASSIUM (BEAKER) (test 4.5 meq/L 3.5-5.1 igww=922) CHLORIDE (BEAKER) (test 100 meq/L 98-107 kpet=403) CO2 (BEAKER) (test 29 meq/L 22-29 okeo=096) BLOOD UREA NITROGEN 19 mg/dL 7-21 (BEAKER) (test vkpx=160) CREATININE (BEAKER) (test 0.76 mg/dL 0.57-1.25 fklm=586) GLUCOSE RANDOM (BEAKER) 104 mg/dL 70-105 (test mivk=794) CALCIUM (BEAKER) (test 9.3 mg/dL 8.4-10.2 auzj=951) EGFR (BEAKER) (test 103 mL/min/1.73 sq m ESTIMATED GFR IS NOT acwm=8959) ACCURATE CREATININE CLEARANCE IN PREDICTING GLOMERULAR FILTRATION RATE. ESTIMATED GFR IS NOT APPLICABLE FOR DIALYSIS PATIENTS. CREATINE KINASE (CK)2017-11-24 08:12:00 Test Item Value Reference Range Comments CREATINE KINASE TOTAL (BEAKER) (test xjxi=527) 8 U/L 29-200 URIC [id number] 08:01:00 Test Item Value Reference Range Comments URIC ACID (BEAKER) (test ndgd=346) 4.8 mg/dL 2.6-7.2 [id number] 08:01:00 Test Item Value Reference Range Comments MAGNESIUM (BEAKER) (test eayj=113) 1.5 mg/dL 1.6-2.6 [id number] 08:01:00 Test Item Value Reference Range Comments PHOSPHORUS (BEAKER) (test ucxk=012) 5.3 mg/dL 2.3-4.7 BASIC METABOLIC [id number] 08:01:00 Test Item Value Reference Range Comments SODIUM (BEAKER) (test 138 meq/L 136-145 yzxt=982) POTASSIUM (BEAKER) (test 4.9 meq/L 3.5-5.1 vqck=962) CHLORIDE (BEAKER) (test 100 meq/L 98-107 uniq=344) CO2 (BEAKER) (test 28 meq/L 22-29 gtki=173) BLOOD UREA NITROGEN 22 mg/dL 7-21 (BEAKER) (test gpft=036) CREATININE (BEAKER) (test 0.80 mg/dL 0.57-1.25 rura=833) GLUCOSE RANDOM (BEAKER) 102 mg/dL 70-105 (test gpgz=962) CALCIUM (BEAKER) (test 9.3 mg/dL 8.4-10.2 wcys=142) EGFR (BEAKER) (test 97 mL/min/1.73 sq m ESTIMATED GFR IS NOT bmom=4975) ACCURATE CREATININE CLEARANCE IN PREDICTING GLOMERULAR FILTRATION RATE. ESTIMATED GFR IS NOT APPLICABLE FOR DIALYSIS PATIENTS. LACTATE DEHYDROGENASE (LDH)2017-11-24 08:01:00 Test Item Value Reference Range Comments LACTATE DEHYDROGENASE (BEAKER) (test byej=061) 489 U/L 125-220 [id number] 18:07:00 Test Item Value Reference Range Comments POTASSIUM (BEAKER) (test nlfi=147) 5.5 meq/L 3.5-5.1 Call if K > 5.4 to renal [id number] 1032CALCIUM, [id number] 06:51:00 Test Item Value Reference Range Comments CALCIUM IONIZED (BEAKER) (test puvm=515) 1.08 mmol/L 1.12-1.27 PH, BLOOD (BEAKER) (test nsot=9305) 7.35 CBC W/PLT COUNT & AUTO [id number] 06:25:00 Test Item Value Reference Range Comments WHITE BLOOD CELL COUNT (BEAKER) (test bddh=876) 18.3 K/ L 3.5-10.5 RED BLOOD CELL COUNT (BEAKER) (test rnyz=793) 2.30 M/ L 3.93-5.22 HEMOGLOBIN (BEAKER) (test gfwf=332) 6.5 GM/DL 11.2-15.7 HEMATOCRIT (BEAKER) (test yyub=815) 21.1 % 34.1-44.9 MEAN CORPUSCULAR VOLUME (BEAKER) (test tvhf=250) 91.7 fL 79.4-94.8 MEAN CORPUSCULAR HEMOGLOBIN (BEAKER) (test 28.3 pg 25.6-32.2 eszg=060) MEAN CORPUSCULAR HEMOGLOBIN CONC (BEAKER) (test 30.8 GM/DL 32.2-35.5 mxhd=881) RED CELL DISTRIBUTION WIDTH (BEAKER) (test 21.2 % 11.7-14.4 bmpv=769) PLATELET COUNT (BEAKER) (test qvbr=590) 414 K/CU MM 150-450 MEAN PLATELET VOLUME (BEAKER) (test icym=277) 11.5 fL 9.4-12.3 NUCLEATED RED BLOOD CELLS (BEAKER) (test 0 /100 WBC 0-0 kojs=990) NEUTROPHILS RELATIVE PERCENT (BEAKER) (test 53 % dbip=776) LYMPHOCYTES RELATIVE PERCENT (BEAKER) (test 25 % hegx=287) MONOCYTES RELATIVE PERCENT (BEAKER) (test 19 % ivyp=365) EOSINOPHILS RELATIVE PERCENT (BEAKER) (test 2 % ddek=493) BASOPHILS RELATIVE PERCENT (BEAKER) (test 0 % eqhs=251) NEUTROPHILS ABSOLUTE COUNT (BEAKER) (test 9.74 K/ L 1.56-6.13 gxko=741) LYMPHOCYTES ABSOLUTE COUNT (BEAKER) (test 4.57 K/ L 1.18-3.74 zjkq=868) MONOCYTES ABSOLUTE COUNT (BEAKER) (test 3.51 K/ L 0.24-0.36 lgzt=916) EOSINOPHILS ABSOLUTE COUNT (BEAKER) (test 0.29 K/ L 0.04-0.36 psos=382) BASOPHILS ABSOLUTE COUNT (BEAKER) (test 0.07 K/ L 0.01-0.08 tzkp=850) IMMATURE GRANULOCYTES-RELATIVE PERCENT (BEAKER) 1 % 0-1 (test vybu=8442) [id number] 05:35:00 Test Item Value Reference Range Comments PHOSPHORUS (BEAKER) (test gwds=777) 4.4 mg/dL 2.3-4.7 [id number] 05:35:00 Test Item Value Reference Range Comments MAGNESIUM (BEAKER) (test ctzp=255) 1.3 mg/dL 1.6-2.6 BASIC METABOLIC [id number] 05:35:00 Test Item Value Reference Range Comments SODIUM (BEAKER) (test 136 meq/L 136-145 ycjz=725) POTASSIUM (BEAKER) (test 5.4 meq/L 3.5-5.1 bocx=980) CHLORIDE (BEAKER) (test 97 meq/L 98-107 scyy=614) CO2 (BEAKER) (test 31 meq/L 22-29 uvnc=426) BLOOD UREA NITROGEN 20 mg/dL 7-21 (BEAKER) (test suaf=014) CREATININE (BEAKER) (test 0.75 mg/dL 0.57-1.25 mlwa=085) GLUCOSE RANDOM (BEAKER) 81 mg/dL 70-105 (test zmqb=731) CALCIUM (BEAKER) (test 9.5 mg/dL 8.4-10.2 bhfo=273) EGFR (BEAKER) (test 105 mL/min/1.73 sq m ESTIMATED GFR IS NOT mmge=4829) ACCURATE CREATININE CLEARANCE IN PREDICTING GLOMERULAR FILTRATION RATE. ESTIMATED GFR IS NOT APPLICABLE FOR DIALYSIS PATIENTS. [id number] 16:19:00 Test Item Value Reference Range Comments POTASSIUM (BEAKER) (test sfxv=408) 5.2 meq/L 3.5-5.1 Repeat after 3 hours kayexalate was given; call result [id number] 12:53:00 Test Item Value Reference Range Comments SODIUM (BEAKER) (test etcb=492) 137 meq/L 136-145 POTASSIUM (BEAKER) (test rklw=865) 5.4 meq/L 3.5-5.1 CHLORIDE (BEAKER) (test xxne=121) 100 meq/L 98-107 CO2 (BEAKER) (test rbnx=529) 30 meq/L 22-29 Call results [id number] 11:14:00 Test Item Value Reference Range Comments POTASSIUM (BEAKER) (test cuif=194) 5.8 meq/L 3.5-5.1 [id number] 06:40:00 Test Item Value Reference Range Comments PHOSPHORUS (BEAKER) (test cloc=593) 5.4 mg/dL 2.3-4.7 [id number] 06:40:00 Test Item Value Reference Range Comments MAGNESIUM (BEAKER) (test enyc=370) 1.6 mg/dL 1.6-2.6 CALCIUM, [id number] 06:27:00 Test Item Value Reference Range Comments CALCIUM IONIZED (BEAKER) (test eyii=370) 0.99 mmol/L 1.12-1.27 PH, BLOOD (BEAKER) (test qopk=9056) 7.43 CBC W/PLT COUNT & AUTO [id number] 05:53:00 Test Item Value Reference Range Comments WHITE BLOOD CELL COUNT (BEAKER) (test yqgo=713) 16.2 K/ L 3.5-10.5 RED BLOOD CELL COUNT (BEAKER) (test xuky=232) 2.38 M/ L 3.93-5.22 HEMOGLOBIN (BEAKER) (test gcoc=078) 7.0 GM/DL 11.2-15.7 HEMATOCRIT (BEAKER) (test zemz=743) 22.2 % 34.1-44.9 MEAN CORPUSCULAR VOLUME (BEAKER) (test wuwg=635) 93.3 fL 79.4-94.8 MEAN CORPUSCULAR HEMOGLOBIN (BEAKER) (test 29.4 pg 25.6-32.2 aomp=413) MEAN CORPUSCULAR HEMOGLOBIN CONC (BEAKER) (test 31.5 GM/DL 32.2-35.5 lerl=334) RED CELL DISTRIBUTION WIDTH (BEAKER) (test 21.3 % 11.7-14.4 xuhz=701) PLATELET COUNT (BEAKER) (test hzjv=533) 390 K/CU MM 150-450 MEAN PLATELET VOLUME (BEAKER) (test sjhz=393) 11.8 fL 9.4-12.3 NUCLEATED RED BLOOD CELLS (BEAKER) (test 0 /100 WBC 0-0 xgwq=248) NEUTROPHILS RELATIVE PERCENT (BEAKER) (test 58 % ozeo=861) LYMPHOCYTES RELATIVE PERCENT (BEAKER) (test 23 % yhxu=012) MONOCYTES RELATIVE PERCENT (BEAKER) (test 17 % ftsb=942) EOSINOPHILS RELATIVE PERCENT (BEAKER) (test 2 % pnwd=893) BASOPHILS RELATIVE PERCENT (BEAKER) (test 0 % nlso=535) NEUTROPHILS ABSOLUTE COUNT (BEAKER) (test 9.31 K/ L 1.56-6.13 pyrh=826) LYMPHOCYTES ABSOLUTE COUNT (BEAKER) (test 3.65 K/ L 1.18-3.74 twcd=636) MONOCYTES ABSOLUTE COUNT (BEAKER) (test 2.70 K/ L 0.24-0.36 zgod=863) EOSINOPHILS ABSOLUTE COUNT (BEAKER) (test 0.36 K/ L 0.04-0.36 mqbi=780) BASOPHILS ABSOLUTE COUNT (BEAKER) (test 0.04 K/ L 0.01-0.08 xbot=577) IMMATURE GRANULOCYTES-RELATIVE PERCENT (BEAKER) 1 % 0-1 (test qyft=0745) BASIC METABOLIC [id number] 17:35:00 Test Item Value Reference Range Comments SODIUM (BEAKER) (test 133 meq/L 136-145 okto=294) POTASSIUM (BEAKER) (test 5.4 meq/L 3.5-5.1 jzbo=030) CHLORIDE (BEAKER) (test 99 meq/L 98-107 dgju=817) CO2 (BEAKER) (test 26 meq/L 22-29 hjrq=070) BLOOD UREA NITROGEN 23 mg/dL 7-21 (BEAKER) (test pzsh=244) CREATININE (BEAKER) (test 0.83 mg/dL 0.57-1.25 szyj=869) GLUCOSE RANDOM (BEAKER) 94 mg/dL 70-105 (test vmit=971) CALCIUM (BEAKER) (test 9.2 mg/dL 8.4-10.2 yhcb=768) EGFR (BEAKER) (test 93 mL/min/1.73 sq m ESTIMATED GFR IS NOT hxoo=0121) ACCURATE CREATININE CLEARANCE IN PREDICTING GLOMERULAR FILTRATION RATE. ESTIMATED GFR IS NOT APPLICABLE FOR DIALYSIS PATIENTS. [id number] 06:33:00 Test Item Value Reference Range Comments PHOSPHORUS (BEAKER) (test doqe=562) 5.3 mg/dL 2.3-4.7 [id number] 06:33:00 Test Item Value Reference Range Comments MAGNESIUM (BEAKER) (test lwbp=063) 1.6 mg/dL 1.6-2.6 BASIC METABOLIC [id number] 06:33:00 Test Item Value Reference Range Comments SODIUM (BEAKER) (test 133 meq/L 136-145 vaxy=122) POTASSIUM (BEAKER) (test 5.2 meq/L 3.5-5.1 xnii=672) CHLORIDE (BEAKER) (test 97 meq/L 98-107 ochb=879) CO2 (BEAKER) (test 29 meq/L 22-29 uwkc=545) BLOOD UREA NITROGEN 23 mg/dL 7-21 (BEAKER) (test bvmj=396) CREATININE (BEAKER) (test 0.77 mg/dL 0.57-1.25 ilnt=430) GLUCOSE RANDOM (BEAKER) 92 mg/dL 70-105 (test tnrd=864) CALCIUM (BEAKER) (test 9.4 mg/dL 8.4-10.2 uqoz=397) EGFR (BEAKER) (test 102 mL/min/1.73 sq m ESTIMATED GFR IS NOT rina=0007) ACCURATE CREATININE CLEARANCE IN PREDICTING GLOMERULAR FILTRATION RATE. ESTIMATED GFR IS NOT APPLICABLE FOR DIALYSIS PATIENTS. CALCIUM, [id number] 06:22:00 Test Item Value Reference Range Comments CALCIUM IONIZED (BEAKER) (test ndxy=975) 1.18 mmol/L 1.12-1.27 PH, BLOOD (BEAKER) (test xkop=3759) 7.32 B-TYPE NATRIURETIC FACTOR (BNP)2017-11-21 06:19:00 Test Item Value Reference Range Comments B-TYPE NATRIURETIC PEPTIDE (BEAKER) (test 120 pg/mL 0-100 wjed=932) CBC W/PLT COUNT & AUTO [id number] 05:59:00 Test Item Value Reference Range Comments WHITE BLOOD CELL COUNT (BEAKER) (test pchf=963) 17.4 K/ L 3.5-10.5 RED BLOOD CELL COUNT (BEAKER) (test emow=302) 2.32 M/ L 3.93-5.22 HEMOGLOBIN (BEAKER) (test osoa=795) 6.7 GM/DL 11.2-15.7 HEMATOCRIT (BEAKER) (test fihe=314) 21.6 % 34.1-44.9 MEAN CORPUSCULAR VOLUME (BEAKER) (test irrl=296) 93.1 fL 79.4-94.8 MEAN CORPUSCULAR HEMOGLOBIN (BEAKER) (test 28.9 pg 25.6-32.2 xdaz=856) MEAN CORPUSCULAR HEMOGLOBIN CONC (BEAKER) (test 31.0 GM/DL 32.2-35.5 xrgw=521) RED CELL DISTRIBUTION WIDTH (BEAKER) (test 20.9 % 11.7-14.4 ntae=955) PLATELET COUNT (BEAKER) (test ayhx=117) 367 K/CU MM 150-450 MEAN PLATELET VOLUME (BEAKER) (test oczs=332) 12.1 fL 9.4-12.3 NUCLEATED RED BLOOD CELLS (BEAKER) (test 0 /100 WBC 0-0 ncvb=800) NEUTROPHILS RELATIVE PERCENT (BEAKER) (test 58 % kgip=506) LYMPHOCYTES RELATIVE PERCENT (BEAKER) (test 23 % acaf=047) MONOCYTES RELATIVE PERCENT (BEAKER) (test 16 % jizd=212) EOSINOPHILS RELATIVE PERCENT (BEAKER) (test 3 % fpdc=502) BASOPHILS RELATIVE PERCENT (BEAKER) (test 1 % qhkh=735) NEUTROPHILS ABSOLUTE COUNT (BEAKER) (test 10.09 K/ L 1.56-6.13 gebe=747) LYMPHOCYTES ABSOLUTE COUNT (BEAKER) (test 3.92 K/ L 1.18-3.74 oklg=531) MONOCYTES ABSOLUTE COUNT (BEAKER) (test 2.71 K/ L 0.24-0.36 mxbj=540) EOSINOPHILS ABSOLUTE COUNT (BEAKER) (test 0.46 K/ L 0.04-0.36 acpw=914) BASOPHILS ABSOLUTE COUNT (BEAKER) (test 0.08 K/ L 0.01-0.08 yzny=186) IMMATURE GRANULOCYTES-RELATIVE PERCENT (BEAKER) 1 % 0-1 (test oqal=5557) BLOOD GAS, [id number] 07:22:00 Test Item Value Reference Range Comments PH VENOUS (BEAKER) (test evid=373) 7.34 7.32-7.42 PCO2 VENOUS (BEAKER) (test kofl=417) 63 mmHg 41-51 PO2 VENOUS (BEAKER) (test zvax=343) 133 mmHg 25-40 O2 SATURATION VENOUS (BEAKER) (test bmpg=052) 98.4 % 40.0-70.0 HCO3 VENOUS (BEAKER) (test hrmg=506) 33 mmol/L 21-29 BASE EXCESS VENOUS (BEAKER) (test ekhr=407) 6.6 mmol/L -2.0-3.0 PATIENT TEMPERATURE (BEAKER) (test hdmt=6413) 37.0 C FIO2 (BEAKER) (test ormk=6210) 21.0 % CALCIUM, [id number] 07:20:00 Test Item Value Reference Range Comments CALCIUM IONIZED (BEAKER) (test ihse=975) 1.10 mmol/L 1.12-1.27 PH, BLOOD (BEAKER) (test kddx=9979) 7.33 [id number] 07:18:00 Test Item Value Reference Range Comments PHOSPHORUS (BEAKER) (test ukps=321) 4.8 mg/dL 2.3-4.7 [id number] 07:18:00 Test Item Value Reference Range Comments MAGNESIUM (BEAKER) (test fqtz=580) 1.6 mg/dL 1.6-2.6 BASIC METABOLIC [id number] 07:18:00 Test Item Value Reference Range Comments SODIUM (BEAKER) (test 137 meq/L 136-145 xffu=877) POTASSIUM (BEAKER) (test 4.8 meq/L 3.5-5.1 mcca=733) CHLORIDE (BEAKER) (test 99 meq/L 98-107 zdim=389) CO2 (BEAKER) (test 31 meq/L 22-29 nevs=886) BLOOD UREA NITROGEN 20 mg/dL 7-21 (BEAKER) (test fnmw=281) CREATININE (BEAKER) (test 0.83 mg/dL 0.57-1.25 mcag=815) GLUCOSE RANDOM (BEAKER) 117 mg/dL 70-105 (test wqjb=126) CALCIUM (BEAKER) (test 9.5 mg/dL 8.4-10.2 ycto=706) EGFR (BEAKER) (test 93 mL/min/1.73 sq m ESTIMATED GFR IS NOT chdd=9570) ACCURATE CREATININE CLEARANCE IN PREDICTING GLOMERULAR FILTRATION RATE. ESTIMATED GFR IS NOT APPLICABLE FOR DIALYSIS PATIENTS. CBC W/PLT COUNT & AUTO [id number] 07:14:00 Test Item Value Reference Range Comments WHITE BLOOD CELL COUNT (BEAKER) (test ybtu=819) 16.7 K/ L 3.5-10.5 RED BLOOD CELL COUNT (BEAKER) (test fqco=108) 2.39 M/ L 3.93-5.22 HEMOGLOBIN (BEAKER) (test yrck=976) 6.9 GM/DL 11.2-15.7 HEMATOCRIT (BEAKER) (test oppy=615) 22.3 % 34.1-44.9 MEAN CORPUSCULAR VOLUME (BEAKER) (test ijxh=677) 93.3 fL 79.4-94.8 MEAN CORPUSCULAR HEMOGLOBIN (BEAKER) (test 28.9 pg 25.6-32.2 kaya=272) MEAN CORPUSCULAR HEMOGLOBIN CONC (BEAKER) (test 30.9 GM/DL 32.2-35.5 tpbi=855) RED CELL DISTRIBUTION WIDTH (BEAKER) (test 21.1 % 11.7-14.4 oecv=506) PLATELET COUNT (BEAKER) (test fvqj=576) 344 K/CU MM 150-450 MEAN PLATELET VOLUME (BEAKER) (test nwmc=839) 11.7 fL 9.4-12.3 NUCLEATED RED BLOOD CELLS (BEAKER) (test 0 /100 WBC 0-0 qqjp=342) NEUTROPHILS RELATIVE PERCENT (BEAKER) (test 60 % gugx=139) LYMPHOCYTES RELATIVE PERCENT (BEAKER) (test 23 % uvnq=442) MONOCYTES RELATIVE PERCENT (BEAKER) (test 14 % jlwr=874) EOSINOPHILS RELATIVE PERCENT (BEAKER) (test 3 % egvg=823) BASOPHILS RELATIVE PERCENT (BEAKER) (test 0 % osul=028) NEUTROPHILS ABSOLUTE COUNT (BEAKER) (test 9.95 K/ L 1.56-6.13 gkay=890) LYMPHOCYTES ABSOLUTE COUNT (BEAKER) (test 3.92 K/ L 1.18-3.74 xgoq=463) MONOCYTES ABSOLUTE COUNT (BEAKER) (test 2.29 K/ L 0.24-0.36 kcxy=660) EOSINOPHILS ABSOLUTE COUNT (BEAKER) (test 0.45 K/ L 0.04-0.36 mmgd=259) BASOPHILS ABSOLUTE COUNT (BEAKER) (test 0.04 K/ L 0.01-0.08 grtt=010) IMMATURE GRANULOCYTES-RELATIVE PERCENT (BEAKER) 0 % 0-1 (test xceo=4745) [id number] 11:18:00 Test Item Value Reference Range Comments FERRITIN (BEAKER) (test gked=077) [address] ng/mL 5-275 [id number] 07:10:00 Test Item Value Reference Range Comments MAGNESIUM (BEAKER) (test eiix=651) 2.0 mg/dL 1.6-2.6 BASIC METABOLIC [id number] 07:10:00 Test Item Value Reference Range Comments SODIUM (BEAKER) (test 137 meq/L 136-145 wqbl=457) POTASSIUM (BEAKER) (test 4.5 meq/L 3.5-5.1 kzbr=822) CHLORIDE (BEAKER) (test 99 meq/L 98-107 mxgw=760) CO2 (BEAKER) (test 35 meq/L 22-29 ohhm=913) BLOOD UREA NITROGEN 18 mg/dL 7-21 (BEAKER) (test pgks=909) CREATININE (BEAKER) (test 0.78 mg/dL 0.57-1.25 jpmm=171) GLUCOSE RANDOM (BEAKER) 102 mg/dL 70-105 (test oibu=123) CALCIUM (BEAKER) (test 9.4 mg/dL 8.4-10.2 jcwn=621) EGFR (BEAKER) (test 100 mL/min/1.73 sq m ESTIMATED GFR IS NOT ihkd=3828) ACCURATE CREATININE CLEARANCE IN PREDICTING GLOMERULAR FILTRATION RATE. ESTIMATED GFR IS NOT APPLICABLE FOR DIALYSIS PATIENTS. CBC (HEMOGRAM ONLY)2017-11-19 07:06:00 Test Item Value Reference Range Comments WHITE BLOOD CELL COUNT (BEAKER) (test mpay=928) 15.3 K/ L 3.5-10.5 RED BLOOD CELL COUNT (BEAKER) (test lfsr=276) 2.42 M/ L 3.93-5.22 HEMOGLOBIN (BEAKER) (test kkoq=271) 7.1 GM/DL 11.2-15.7 HEMATOCRIT (BEAKER) (test jwsk=175) 22.5 % 34.1-44.9 MEAN CORPUSCULAR VOLUME (BEAKER) (test gjwx=996) 93.0 fL 79.4-94.8 MEAN CORPUSCULAR HEMOGLOBIN (BEAKER) (test 29.3 pg 25.6-32.2 yrvw=358) MEAN CORPUSCULAR HEMOGLOBIN CONC (BEAKER) (test 31.6 GM/DL 32.2-35.5 gtyr=591) RED CELL DISTRIBUTION WIDTH (BEAKER) (test 20.9 % 11.7-14.4 kqqq=710) PLATELET COUNT (BEAKER) (test gzwf=390) 324 K/CU MM 150-450 MEAN PLATELET VOLUME (BEAKER) (test dapm=294) 11.8 fL 9.4-12.3 NUCLEATED RED BLOOD CELLS (BEAKER) (test 1 /100 WBC 0-0 brmi=161) BLOOD [id number] 06:00:00 Test Item Value Reference Range Comments CULTURE (BEAKER) (test klaf=5933) No growth in 5 days ANTI-NUCLEAR ANTIBODY (AMARILYS)2017-11-17 14:21:00 Test Item Value Reference Range Comments ANTI-NUCLEAR ANTIBODY (AMARILYS) (BEAKER) (test Positive Negative roju=458) AMARILYS TITER AND [id number] 14:21:00 Test Item Value Reference Range Comments AMARILYS TITER (BEAKER) (test :160 pycb=3208) AMARILYS PATTERN (BEAKER) (test Multiple nuclear dots pattern twcb=8488) [id number] 07:16:00 Test Item Value Reference Range Comments PHOSPHORUS (BEAKER) (test hfif=902) 4.5 mg/dL 2.3-4.7 [id number] 07:16:00 Test Item Value Reference Range Comments MAGNESIUM (BEAKER) (test xssb=103) 1.4 mg/dL 1.6-2.6 BASIC METABOLIC [id number] 07:16:00 Test Item Value Reference Range Comments SODIUM (BEAKER) (test 141 meq/L 136-145 gluz=849) POTASSIUM (BEAKER) (test 4.2 meq/L 3.5-5.1 puwb=894) CHLORIDE (BEAKER) (test 98 meq/L 98-107 lthl=851) CO2 (BEAKER) (test 34 meq/L 22-29 rvbo=073) BLOOD UREA NITROGEN 21 mg/dL 7-21 (BEAKER) (test nzjl=409) CREATININE (BEAKER) (test 0.85 mg/dL 0.57-1.25 sauo=632) GLUCOSE RANDOM (BEAKER) 98 mg/dL 70-105 (test cqfe=746) CALCIUM (BEAKER) (test 9.2 mg/dL 8.4-10.2 mfdd=188) EGFR (BEAKER) (test 91 mL/min/1.73 sq m ESTIMATED GFR IS NOT aplu=0871) ACCURATE CREATININE CLEARANCE IN PREDICTING GLOMERULAR FILTRATION RATE. ESTIMATED GFR IS NOT APPLICABLE FOR DIALYSIS PATIENTS. HEPATIC FUNCTION [id number] 07:16:00 Test Item Value Reference Range Comments TOTAL PROTEIN (BEAKER) (test cmnp=568) 8.3 gm/dL 6.0-8.3 ALBUMIN (BEAKER) (test oyto=9907) 3.0 g/dL 3.5-5.0 BILIRUBIN TOTAL (BEAKER) (test hkaz=740) 1.3 mg/dL 0.2-1.2 BILIRUBIN DIRECT (BEAKER) (test eivq=131) 0.7 mg/dL 0.1-0.5 ALKALINE PHOSPHATASE (BEAKER) (test tjhr=152) 217 U/L 40-150 AST (SGOT) (BEAKER) (test sgpy=455) 106 U/L 5-34 ALT (SGPT) (BEAKER) (test hltu=262) 46 U/L 6-55 CALCIUM, [id number] 06:50:00 Test Item Value Reference Range Comments CALCIUM IONIZED (BEAKER) (test zcwu=478) 1.11 mmol/L 1.12-1.27 PH, BLOOD (BEAKER) (test xpmq=6223) 7.34 CBC W/PLT COUNT & AUTO [id number] 06:09:00 Test Item Value Reference Range Comments WHITE BLOOD CELL COUNT (BEAKER) (test kgcq=832) 16.8 K/ L 3.5-10.5 RED BLOOD CELL COUNT (BEAKER) (test rles=623) 2.53 M/ L 3.93-5.22 HEMOGLOBIN (BEAKER) (test tvrv=506) 7.3 GM/DL 11.2-15.7 HEMATOCRIT (BEAKER) (test dimh=351) 23.3 % 34.1-44.9 MEAN CORPUSCULAR VOLUME (BEAKER) (test qjeu=185) 92.1 fL 79.4-94.8 MEAN CORPUSCULAR HEMOGLOBIN (BEAKER) (test 28.9 pg 25.6-32.2 hbxq=608) MEAN CORPUSCULAR HEMOGLOBIN CONC (BEAKER) (test 31.3 GM/DL 32.2-35.5 sieb=239) RED CELL DISTRIBUTION WIDTH (BEAKER) (test 20.2 % 11.7-14.4 mign=127) PLATELET COUNT (BEAKER) (test hrcd=497) 305 K/CU MM 150-450 MEAN PLATELET VOLUME (BEAKER) (test kqim=823) 12.0 fL 9.4-12.3 NUCLEATED RED BLOOD CELLS (BEAKER) (test 1 /100 WBC 0-0 jlhx=902) NEUTROPHILS RELATIVE PERCENT (BEAKER) (test 66 % hyvu=763) LYMPHOCYTES RELATIVE PERCENT (BEAKER) (test 20 % bfbt=100) MONOCYTES RELATIVE PERCENT (BEAKER) (test 11 % awei=128) EOSINOPHILS RELATIVE PERCENT (BEAKER) (test 3 % lvug=232) BASOPHILS RELATIVE PERCENT (BEAKER) (test 0 % liki=790) NEUTROPHILS ABSOLUTE COUNT (BEAKER) (test 10.99 K/ L 1.56-6.13 uebj=277) LYMPHOCYTES ABSOLUTE COUNT (BEAKER) (test 3.29 K/ L 1.18-3.74 mbih=949) MONOCYTES ABSOLUTE COUNT (BEAKER) (test 1.89 K/ L 0.24-0.36 aauq=283) EOSINOPHILS ABSOLUTE COUNT (BEAKER) (test 0.48 K/ L 0.04-0.36 qygz=960) BASOPHILS ABSOLUTE COUNT (BEAKER) (test 0.05 K/ L 0.01-0.08 mwtp=106) IMMATURE GRANULOCYTES-RELATIVE PERCENT (BEAKER) 0 % 0-1 (test lpqm=1832) HEPATITIS PANEL, [id number] 14:32:00 Test Item Value Reference Range Comments HEPATITIS A IGM ANTIBODY (BEAKER) (test Nonreactive Nonreactive ywlx=053) HEPATITIS B CORE IGM ANTIBODY (BEAKER) (test Nonreactive Nonreactive eiza=183) HEPATITIS C ANTIBODY (BEAKER) (test xcjm=930) Nonreactive Nonreactive HEPATITIS B SURFACE ANTIGEN (2) (BEAKER) (test Nonreactive Nonreactive qbta=6319) RAD, MANDIBLE, LESS THAN 4 [id number] 12:28:00Reason for exam:->fever, dental cariesFINAL REPORT Mandible series 5 images INDICATION: Fever, [...] air cells are well aerated. Signed: [facility] Verified Date/Time: 11/16/2017 12:28:43 Reading Location: [facility] Radiology Reading Room RAD, CHEST, 2 [id number] 10:47:00Reason for exam:-> fever, chest painFINAL REPORT Chest two views INDICATION : Fever, chest pain COMPARISON: 11/08/2017 IMPRESSION: The cardiac silhouette is enlarged. There is pulmonary vascular congestion with interstitial reticulation suggesting mild edema. Trace pleural effusions are present with improved basilaropacities, likely atelectasis. Pneumonitis cannot be excluded, however. A Port-A-Cath, osteopenia, and chronic left clavicular fracture are noted. No pneumothorax is seen. Signed: [facility] Verified Date/Time: 11/16/2017 10:47:19 Reading Location: [facility] Reading Room URINE [id number] 09:53:00 Test Item Value Reference Range Comments CULTURE (BEAKER) (test >100,000 col/mL skin valentino arol=6585) CBC W/PLT COUNT & AUTO [id number] 09:20:00 Test Item Value Reference Range Comments WHITE BLOOD CELL COUNT (BEAKER) (test nsud=930) 18.6 K/ L 3.5-10.5 RED BLOOD CELL COUNT (BEAKER) (test vczf=728) 2.63 M/ L 3.93-5.22 HEMOGLOBIN (BEAKER) (test mdsi=987) 7.6 GM/DL 11.2-15.7 HEMATOCRIT (BEAKER) (test dbwd=009) 23.8 % 34.1-44.9 MEAN CORPUSCULAR VOLUME (BEAKER) (test obuf=136) 90.5 fL 79.4-94.8 MEAN CORPUSCULAR HEMOGLOBIN (BEAKER) (test 28.9 pg 25.6-32.2 mvuu=199) MEAN CORPUSCULAR HEMOGLOBIN CONC (BEAKER) (test 31.9 GM/DL 32.2-35.5 jhvy=763) RED CELL DISTRIBUTION WIDTH (BEAKER) (test 19.9 % 11.7-14.4 ufqj=993) PLATELET COUNT (BEAKER) (test qmkt=516) 330 K/CU MM 150-450 MEAN PLATELET VOLUME (BEAKER) (test nmbn=983) 11.9 fL 9.4-12.3 NUCLEATED RED BLOOD CELLS (BEAKER) (test 1 /100 WBC 0-0 bioe=115) NEUTROPHILS RELATIVE PERCENT (BEAKER) (test 65 % ypyr=315) LYMPHOCYTES RELATIVE PERCENT (BEAKER) (test 22 % asjr=250) MONOCYTES RELATIVE PERCENT (BEAKER) (test 10 % clhm=699) EOSINOPHILS RELATIVE PERCENT (BEAKER) (test 2 % psjk=924) BASOPHILS RELATIVE PERCENT (BEAKER) (test 0 % jmqr=097) NEUTROPHILS ABSOLUTE COUNT (BEAKER) (test 12.09 K/ L 1.56-6.13 zbti=276) LYMPHOCYTES ABSOLUTE COUNT (BEAKER) (test 4.02 K/ L 1.18-3.74 jnjs=451) MONOCYTES ABSOLUTE COUNT (BEAKER) (test 1.90 K/ L 0.24-0.36 jbfe=272) EOSINOPHILS ABSOLUTE COUNT (BEAKER) (test 0.41 K/ L 0.04-0.36 vbcy=302) BASOPHILS ABSOLUTE COUNT (BEAKER) (test 0.05 K/ L 0.01-0.08 udgc=905) IMMATURE GRANULOCYTES-RELATIVE PERCENT (BEAKER) 0 % 0-1 (test pvfn=3212) (MANUAL DIFFERENTIAL)2017-11-16 09:20:00 Test Item Value Reference Range Comments TOTAL COUNTED (BEAKER) (test odhy=9341) WBC MORPHOLOGY (BEAKER) (test hjqo=966) Normal PLT MORPHOLOGY (BEAKER) (test jraq=075) Normal POLYCHROMATOPHILLIC RBCS(BEAKER) (test oiey=025) 1+ few SICKLE CELLS (BEAKER) (test bynn=442) 1+ few TARGET CELLS (BEAKER) (test spwy=958) 2+ moderate CALCIUM, [id number] 07:28:00 Test Item Value Reference Range Comments CALCIUM IONIZED (BEAKER) (test wbgu=746) 0.97 mmol/L 1.12-1.27 PH, BLOOD (BEAKER) (test neug=9815) 7.45 [id number] 05:48:00 Test Item Value Reference Range Comments PHOSPHORUS (BEAKER) (test bxri=722) 4.8 mg/dL 2.3-4.7 [id number] 05:48:00 Test Item Value Reference Range Comments MAGNESIUM (BEAKER) (test czqb=887) 1.6 mg/dL 1.6-2.6 BASIC METABOLIC [id number] 05:48:00 Test Item Value Reference Range Comments SODIUM (BEAKER) (test 139 meq/L 136-145 zbqm=510) POTASSIUM (BEAKER) (test 3.9 meq/L 3.5-5.1 phcm=542) CHLORIDE (BEAKER) (test 98 meq/L 98-107 hmgl=481) CO2 (BEAKER) (test 32 meq/L 22-29 nofl=737) BLOOD UREA NITROGEN 23 mg/dL 7-21 (BEAKER) (test okzk=300) CREATININE (BEAKER) (test 1.10 mg/dL 0.57-1.25 ykoq=930) GLUCOSE RANDOM (BEAKER) 115 mg/dL 70-105 (test xrof=233) CALCIUM (BEAKER) (test 9.0 mg/dL 8.4-10.2 nyso=678) EGFR (BEAKER) (test 67 mL/min/1.73 sq m ESTIMATED GFR IS NOT bxfy=8408) ACCURATE CREATININE CLEARANCE IN PREDICTING GLOMERULAR FILTRATION RATE. ESTIMATED GFR IS NOT APPLICABLE FOR DIALYSIS PATIENTS. URINALYSIS W/ [id number] 19:14:00 Test Item Value Reference Range Comments COLOR (BEAKER) (test vlmb=053) Yellow CLARITY (BEAKER) (test osri=585) Clear SPECIFIC GRAVITY UA (BEAKER) (test uudj=238) 1.006 1.001-1.035 PH UA (BEAKER) (test nyge=309) 7.5 5.0-8.0 PROTEIN UA (BEAKER) (test xtnd=176) Negative Negative GLUCOSE UA (BEAKER) (test fxqu=505) Negative Negative KETONES UA (BEAKER) (test drgi=708) Negative Negative BILIRUBIN UA (BEAKER) (test gbul=883) Negative Negative BLOOD UA (BEAKER) (test qlth=127) Trace Negative NITRITE UA (BEAKER) (test otci=546) Negative Negative LEUKOCYTE ESTERASE UA (BEAKER) (test weqa=205) Small Negative UROBILINOGEN UA (BEAKER) (test hiwp=943) 0.2 mg/dL 0.2-1.0 RBC UA (BEAKER) (test ocjq=408) < /HPF WBC UA (BEAKER) (test opal=221) 7 /HPF BACTERIA (BEAKER) (test lqvz=881) Rare SQUAMOUS EPITHELIAL (BEAKER) (test qvym=778) 1 /HPF SOURCE(BEAKER) (test llcm=4324) Urine, Voided [id number] 13:26:00 Test Item Value Reference Range Comments LIPASE (BEAKER) (test hzda=710) 95 U/L 8-78 RAD, ABDOMEN/KUB, 1 VIEW [id number] 12:43:00Reason for exam:->abdominal painFINAL REPORT Abdomen one view INDICATION: Abdominal pain [...] mild lung base opacities. Signed: Anselmo Cain MDReport Verified Date/Time: 11/15/2017 12:43:04 Reading Location: [facility] Radiology Reading Room CBC W/PLT COUNT & AUTO [id number] 10:00:00 Test Item Value Reference Range Comments WHITE BLOOD CELL COUNT (BEAKER) (test ionp=889) 18.8 K/ L 3.5-10.5 RED BLOOD CELL COUNT (BEAKER) (test rfgt=391) 1.83 M/ L 3.93-5.22 HEMOGLOBIN (BEAKER) (test jepw=874) 5.4 GM/DL 11.2-15.7 HEMATOCRIT (BEAKER) (test pwbk=469) 16.7 % 34.1-44.9 MEAN CORPUSCULAR VOLUME (BEAKER) (test oqjl=689) 91.3 fL 79.4-94.8 MEAN CORPUSCULAR HEMOGLOBIN (BEAKER) (test 29.5 pg 25.6-32.2 aqlc=176) MEAN CORPUSCULAR HEMOGLOBIN CONC (BEAKER) (test 32.3 GM/DL 32.2-35.5 nroi=840) RED CELL DISTRIBUTION WIDTH (BEAKER) (test 21.7 % 11.7-14.4 ijre=659) PLATELET COUNT (BEAKER) (test kila=766) 340 K/CU MM 150-450 MEAN PLATELET VOLUME (BEAKER) (test psqm=740) 11.3 fL 9.4-12.3 NUCLEATED RED BLOOD CELLS (BEAKER) (test 2 /100 WBC 0-0 zajg=065) NEUTROPHILS RELATIVE PERCENT (BEAKER) (test 65 % fahd=106) LYMPHOCYTES RELATIVE PERCENT (BEAKER) (test 23 % utyk=060) MONOCYTES RELATIVE PERCENT (BEAKER) (test 10 % smlv=933) EOSINOPHILS RELATIVE PERCENT (BEAKER) (test 1 % evti=441) BASOPHILS RELATIVE PERCENT (BEAKER) (test 0 % bdgf=295) NEUTROPHILS ABSOLUTE COUNT (BEAKER) (test 12.25 K/ L 1.56-6.13 mfcw=595) LYMPHOCYTES ABSOLUTE COUNT (BEAKER) (test 4.31 K/ L 1.18-3.74 nfbw=438) MONOCYTES ABSOLUTE COUNT (BEAKER) (test 1.88 K/ L 0.24-0.36 kwus=639) EOSINOPHILS ABSOLUTE COUNT (BEAKER) (test 0.26 K/ L 0.04-0.36 yasp=677) BASOPHILS ABSOLUTE COUNT (BEAKER) (test 0.02 K/ L 0.01-0.08 ajns=731) IMMATURE GRANULOCYTES-RELATIVE PERCENT (BEAKER) 1 % 0-1 (test axub=3819) (MANUAL DIFFERENTIAL)2017-11-15 10:00:00 Test Item Value Reference Range Comments TOTAL COUNTED (BEAKER) (test zpbs=9932) ATYPICAL LYMPHS(BEAKER) (test kdso=6411) Present LARGE PLT(BEAKER) (test lsgg=8454) Present HYPOCHROMIA (BEAKER) (test bkvn=462) 1+ few POLYCHROMATOPHILLIC RBCS(BEAKER) (test xbfe=764) 1+ few SICKLE CELLS (BEAKER) (test hfyt=188) 1+ few TARGET CELLS (BEAKER) (test qpvz=386) 1+ few U/S, ENDOVAGINAL (EV)2017-11-15 09:03:00Reason for exam:->ovarian complex cysts on CTFINAL REPORT TECHNIQUE: Transvaginal grayscale ultrasound of the [...] free fluid in the right adnexum, nonspecific. IMPRESSION:Complex structure in the right ovary correlating with fat-containing structure seenon recent CT, consistent with a dermoid. Left ovary is unremarkable. RECOMMENDATION:Pelvis MRI with and without intravenous contrast is recommended to further characterize right ovarian dermoid. Signed: Funmilayo Reina MDReport Verified Date/Time: 2017 09:03:15 Reading Location: [address] Ultrasound Reading Room CBC W/ PLT COUNT & AUTO [id number] 08:32:00 Test Item Value Reference Range Comments WHITE BLOOD CELL COUNT (BEAKER) (test actw=508) 19.8 K/ L 3.5-10.5 RED BLOOD CELL COUNT (BEAKER) (test upoo=703) 1.89 M/ L 3.93-5.22 HEMOGLOBIN (BEAKER) (test mbsy=620) 5.6 GM/DL 11.2-15.7 HEMATOCRIT (BEAKER) (test ushc=418) 17.2 % 34.1-44.9 MEAN CORPUSCULAR VOLUME (BEAKER) (test kdlk=154) 91.0 fL 79.4-94.8 MEAN CORPUSCULAR HEMOGLOBIN (BEAKER) (test 29.6 pg 25.6-32.2 yoeu=961) MEAN CORPUSCULAR HEMOGLOBIN CONC (BEAKER) (test 32.6 GM/DL 32.2-35.5 arlt=796) RED CELL DISTRIBUTION WIDTH (BEAKER) (test 21.4 % 11.7-14.4 yado=857) PLATELET COUNT (BEAKER) (test joez=589) 366 K/CU MM 150-450 MEAN PLATELET VOLUME (BEAKER) (test tjhd=568) 11.6 fL 9.4-12.3 NUCLEATED RED BLOOD CELLS (BEAKER) (test 2 /100 WBC 0-0 xgmh=648) NEUTROPHILS RELATIVE PERCENT (BEAKER) (test 70 % lwtc=762) LYMPHOCYTES RELATIVE PERCENT (BEAKER) (test 18 % ymxc=784) MONOCYTES RELATIVE PERCENT (BEAKER) (test 10 % jghg=546) EOSINOPHILS RELATIVE PERCENT (BEAKER) (test 1 % fltq=990) BASOPHILS RELATIVE PERCENT (BEAKER) (test 0 % yjrg=278) NEUTROPHILS ABSOLUTE COUNT (BEAKER) (test 13.93 K/ L 1.56-6.13 ekoo=409) LYMPHOCYTES ABSOLUTE COUNT (BEAKER) (test 3.51 K/ L 1.18-3.74 jxto=244) MONOCYTES ABSOLUTE COUNT (BEAKER) (test 2.03 K/ L 0.24-0.36 fruv=371) EOSINOPHILS ABSOLUTE COUNT (BEAKER) (test 0.23 K/ L 0.04-0.36 ekmc=616) BASOPHILS ABSOLUTE COUNT (BEAKER) (test 0.02 K/ L 0.01-0.08 plwj=854) IMMATURE GRANULOCYTES-RELATIVE PERCENT (BEAKER) 0 % 0-1 (test kjnd=0922) [id number] 06:16:00 Test Item Value Reference Range Comments PHOSPHORUS (BEAKER) (test rkcq=502) 4.6 mg/dL 2.3-4.7 [id number] 06:16:00 Test Item Value Reference Range Comments MAGNESIUM (BEAKER) (test pvxj=061) 1.6 mg/dL 1.6-2.6 BASIC METABOLIC [id number] 06:16:00 Test Item Value Reference Range Comments SODIUM (BEAKER) (test 139 meq/L 136-145 ueti=659) POTASSIUM (BEAKER) (test 3.9 meq/L 3.5-5.1 ccpn=171) CHLORIDE (BEAKER) (test 97 meq/L 98-107 bsow=553) CO2 (BEAKER) (test 33 meq/L 22-29 obpd=010) BLOOD UREA NITROGEN 24 mg/dL 7-21 (BEAKER) (test rmgc=898) CREATININE (BEAKER) (test 1.15 mg/dL 0.57-1.25 vmbh=672) GLUCOSE RANDOM (BEAKER) 104 mg/dL 70-105 (test qnrv=659) CALCIUM (BEAKER) (test 9.1 mg/dL 8.4-10.2 wwdn=059) EGFR (BEAKER) (test 64 mL/min/1.73 sq m ESTIMATED GFR IS NOT eyer=8931) ACCURATE CREATININE CLEARANCE IN PREDICTING GLOMERULAR FILTRATION RATE. ESTIMATED GFR IS NOT APPLICABLE FOR DIALYSIS PATIENTS. HEPATIC FUNCTION [id number] 06:16:00 Test Item Value Reference Range Comments TOTAL PROTEIN (BEAKER) (test chxl=618) 8.2 gm/dL 6.0-8.3 ALBUMIN (BEAKER) (test zuyj=3191) 2.9 g/dL 3.5-5.0 BILIRUBIN TOTAL (BEAKER) (test jgtm=849) 1.1 mg/dL 0.2-1.2 BILIRUBIN DIRECT (BEAKER) (test tbec=074) 0.5 mg/dL 0.1-0.5 ALKALINE PHOSPHATASE (BEAKER) (test cppl=979) 164 U/L 40-150 AST (SGOT) (BEAKER) (test uygz=958) 76 U/L 5-34 ALT (SGPT) (BEAKER) (test bqrs=688) 34 U/L 6-55 CALCIUM, [id number] 06:00:00 Test Item Value Reference Range Comments CALCIUM IONIZED (BEAKER) (test pzaa=802) 0.93 mmol/L 1.12-1.27 PH, BLOOD (BEAKER) (test wdvh=2202) 7.52 URINALYSIS W/ [id number] 18:32:00 Test Item Value Reference Range Comments COLOR (BEAKER) (test wcxz=876) Light Yellow CLARITY (BEAKER) (test zgsl=354) Clear SPECIFIC GRAVITY UA (BEAKER) (test ubzt=882) 1.006 1.001-1.035 PH UA (BEAKER) (test uvwf=343) 7.0 5.0-8.0 PROTEIN UA (BEAKER) (test glbn=087) Negative Negative GLUCOSE UA (BEAKER) (test xeja=895) Negative Negative KETONES UA (BEAKER) (test arhz=090) Negative Negative BILIRUBIN UA (BEAKER) (test wils=850) Negative Negative BLOOD UA (BEAKER) (test mzra=890) Trace Negative NITRITE UA (BEAKER) (test ofkm=439) Negative Negative LEUKOCYTE ESTERASE UA (BEAKER) (test reaf=084) Small Negative UROBILINOGEN UA (BEAKER) (test kaci=449) 0.2 mg/dL 0.2-1.0 RBC UA (BEAKER) (test ddvw=197) 1 /HPF WBC UA (BEAKER) (test ozyb=433) 7 /HPF BACTERIA (BEAKER) (test vdxc=293) Rare MUCUS (BEAKER) (test rvsj=1800) Rare SQUAMOUS EPITHELIAL (BEAKER) (test mmak=521) 4 /HPF SOURCE(BEAKER) (test mfuj=7872) Urine, Voided CALCIUM, [id number] 07:19:00 Test Item Value Reference Range Comments CALCIUM IONIZED (BEAKER) (test nspa=994) 1.03 mmol/L 1.12-1.27 PH, BLOOD (BEAKER) (test wpxh=0543) 7.40 CBC W/PLT COUNT & AUTO [id number] 06:26:00 Test Item Value Reference Range Comments WHITE BLOOD CELL COUNT (BEAKER) (test bhzs=271) 18.5 K/ L 3.5-10.5 RED BLOOD CELL COUNT (BEAKER) (test ishv=565) 2.02 M/ L 3.93-5.22 HEMOGLOBIN (BEAKER) (test jolf=965) 6.0 GM/DL 11.2-15.7 HEMATOCRIT (BEAKER) (test xfvz=877) 18.5 % 34.1-44.9 MEAN CORPUSCULAR VOLUME (BEAKER) (test ykjl=924) 91.6 fL 79.4-94.8 MEAN CORPUSCULAR HEMOGLOBIN (BEAKER) (test 29.7 pg 25.6-32.2 dehf=733) MEAN CORPUSCULAR HEMOGLOBIN CONC (BEAKER) (test 32.4 GM/DL 32.2-35.5 sigu=617) RED CELL DISTRIBUTION WIDTH (BEAKER) (test 21.9 % 11.7-14.4 mgnv=973) PLATELET COUNT (BEAKER) (test vgkw=018) 337 K/CU MM 150-450 MEAN PLATELET VOLUME (BEAKER) (test jwcb=328) 11.7 fL 9.4-12.3 NUCLEATED RED BLOOD CELLS (BEAKER) (test 4 /100 WBC 0-0 jioq=907) NEUTROPHILS RELATIVE PERCENT (BEAKER) (test 76 % eiac=687) LYMPHOCYTES RELATIVE PERCENT (BEAKER) (test 16 % vsku=167) MONOCYTES RELATIVE PERCENT (BEAKER) (test 6 % zrra=424) EOSINOPHILS RELATIVE PERCENT (BEAKER) (test 1 % ltcj=471) BASOPHILS RELATIVE PERCENT (BEAKER) (test 0 % chex=821) NEUTROPHILS ABSOLUTE COUNT (BEAKER) (test 13.98 K/ L 1.56-6.13 crco=029) LYMPHOCYTES ABSOLUTE COUNT (BEAKER) (test 3.02 K/ L 1.18-3.74 koxp=468) MONOCYTES ABSOLUTE COUNT (BEAKER) (test 1.13 K/ L 0.24-0.36 rtou=674) EOSINOPHILS ABSOLUTE COUNT (BEAKER) (test 0.09 K/ L 0.04-0.36 jcup=553) BASOPHILS ABSOLUTE COUNT (BEAKER) (test 0.05 K/ L 0.01-0.08 xrtl=481) IMMATURE GRANULOCYTES-RELATIVE PERCENT (BEAKER) 1 % 0-1 (test xoce=9608) [id number] 06:21:00 Test Item Value Reference Range Comments PHOSPHORUS (BEAKER) (test dgsp=997) 4.3 mg/dL 2.3-4.7 [id number] 06:21:00 Test Item Value Reference Range Comments MAGNESIUM (BEAKER) (test gatu=665) 2.1 mg/dL 1.6-2.6 BASIC METABOLIC [id number] 06:21:00 Test Item Value Reference Range Comments SODIUM (BEAKER) (test 139 meq/L 136-145 pkcw=338) POTASSIUM (BEAKER) (test 4.0 meq/L 3.5-5.1 dpuc=118) CHLORIDE (BEAKER) (test 99 meq/L 98-107 ktkm=388) CO2 (BEAKER) (test 31 meq/L 22-29 wokd=687) BLOOD UREA NITROGEN 23 mg/dL 7-21 (BEAKER) (test swly=129) CREATININE (BEAKER) (test 1.29 mg/dL 0.57-1.25 apag=857) GLUCOSE RANDOM (BEAKER) 116 mg/dL 70-105 (test vfcf=212) CALCIUM (BEAKER) (test 8.8 mg/dL 8.4-10.2 bgqp=629) EGFR (BEAKER) (test 56 mL/min/1.73 sq m ESTIMATED GFR IS NOT kyca=0117) ACCURATE CREATININE CLEARANCE IN PREDICTING GLOMERULAR FILTRATION RATE. ESTIMATED GFR IS NOT APPLICABLE FOR DIALYSIS PATIENTS. B-TYPE NATRIURETIC FACTOR (BNP)2017-11-13 07:27:00 Test Item Value Reference Range Comments B-TYPE NATRIURETIC PEPTIDE (BEAKER) (test 166 pg/mL 0-100 kauv=287) [id number] 07:26:00 Test Item Value Reference Range Comments PHOSPHORUS (BEAKER) (test wtea=947) 4.6 mg/dL 2.3-4.7 [id number] 07:26:00 Test Item Value Reference Range Comments MAGNESIUM (BEAKER) (test paxq=625) 1.6 mg/dL 1.6-2.6 BASIC METABOLIC [id number] 07:26:00 Test Item Value Reference Range Comments SODIUM (BEAKER) (test 139 meq/L 136-145 zxeq=304) POTASSIUM (BEAKER) (test 3.5 meq/L 3.5-5.1 fsxr=002) CHLORIDE (BEAKER) (test 101 meq/L 98-107 bsmh=731) CO2 (BEAKER) (test 32 meq/L 22-29 ejcv=924) BLOOD UREA NITROGEN 14 mg/dL 7-21 (BEAKER) (test ryfy=969) CREATININE (BEAKER) (test 1.09 mg/dL 0.57-1.25 gqfv=233) GLUCOSE RANDOM (BEAKER) 92 mg/dL 70-105 (test krmh=344) CALCIUM (BEAKER) (test 8.5 mg/dL 8.4-10.2 kqkj=744) EGFR (BEAKER) (test 68 mL/min/1.73 sq m ESTIMATED GFR IS NOT iytc=1433) ACCURATE CREATININE CLEARANCE IN PREDICTING GLOMERULAR FILTRATION RATE. ESTIMATED GFR IS NOT APPLICABLE FOR DIALYSIS PATIENTS. CBC W/PLT COUNT & AUTO [id number] 07:23:00 Test Item Value Reference Range Comments WHITE BLOOD CELL COUNT (BEAKER) (test yfza=034) 18.4 K/ L 3.5-10.5 RED BLOOD CELL COUNT (BEAKER) (test uoyc=996) 2.03 M/ L 3.93-5.22 HEMOGLOBIN (BEAKER) (test bsbg=252) 6.0 GM/DL 11.2-15.7 HEMATOCRIT (BEAKER) (test mlbe=286) 18.8 % 34.1-44.9 MEAN CORPUSCULAR VOLUME (BEAKER) (test nzbs=735) 92.6 fL 79.4-94.8 MEAN CORPUSCULAR HEMOGLOBIN (BEAKER) (test 29.6 pg 25.6-32.2 uoek=412) MEAN CORPUSCULAR HEMOGLOBIN CONC (BEAKER) (test 31.9 GM/DL 32.2-35.5 elyq=922) RED CELL DISTRIBUTION WIDTH (BEAKER) (test 22.9 % 11.7-14.4 viig=281) PLATELET COUNT (BEAKER) (test gxst=441) 302 K/CU MM 150-450 MEAN PLATELET VOLUME (BEAKER) (test pjml=267) 11.3 fL 9.4-12.3 NUCLEATED RED BLOOD CELLS (BEAKER) (test 7 /100 WBC 0-0 yxao=691) NEUTROPHILS RELATIVE PERCENT (BEAKER) (test 74 % ztlb=322) LYMPHOCYTES RELATIVE PERCENT (BEAKER) (test 18 % sdix=838) MONOCYTES RELATIVE PERCENT (BEAKER) (test 7 % hmbk=219) EOSINOPHILS RELATIVE PERCENT (BEAKER) (test 0 % gukb=183) BASOPHILS RELATIVE PERCENT (BEAKER) (test 0 % swxu=539) NEUTROPHILS ABSOLUTE COUNT (BEAKER) (test 13.58 K/ L 1.56-6.13 buvc=410) LYMPHOCYTES ABSOLUTE COUNT (BEAKER) (test 3.24 K/ L 1.18-3.74 ngmp=835) MONOCYTES ABSOLUTE COUNT (BEAKER) (test 1.23 K/ L 0.24-0.36 txox=868) EOSINOPHILS ABSOLUTE COUNT (BEAKER) (test 0.07 K/ L 0.04-0.36 ygbx=824) BASOPHILS ABSOLUTE COUNT (BEAKER) (test 0.05 K/ L 0.01-0.08 uypy=630) IMMATURE GRANULOCYTES-RELATIVE PERCENT (BEAKER) 1 % 0-1 (test ewol=4331) CALCIUM, [id number] 07:08:00 Test Item Value Reference Range Comments CALCIUM IONIZED (BEAKER) (test ztlg=261) 1.03 mmol/L 1.12-1.27 PH, BLOOD (BEAKER) (test kiqx=1657) 7.38 CBC W/PLT COUNT & AUTO [id number] 08:23:00 Test Item Value Reference Range Comments WHITE BLOOD CELL COUNT (BEAKER) (test amap=786) 20.4 K/ L 3.5-10.5 RED BLOOD CELL COUNT (BEAKER) (test wflx=216) 2.08 M/ L 3.93-5.22 HEMOGLOBIN (BEAKER) (test vubj=107) 6.4 GM/DL 11.2-15.7 HEMATOCRIT (BEAKER) (test rysy=086) 19.7 % 34.1-44.9 MEAN CORPUSCULAR VOLUME (BEAKER) (test grie=772) 94.7 fL 79.4-94.8 MEAN CORPUSCULAR HEMOGLOBIN (BEAKER) (test 30.8 pg 25.6-32.2 yoxx=913) MEAN CORPUSCULAR HEMOGLOBIN CONC (BEAKER) (test 32.5 GM/DL 32.2-35.5 dxbu=593) RED CELL DISTRIBUTION WIDTH (BEAKER) (test 24.3 % 11.7-14.4 oero=567) PLATELET COUNT (BEAKER) (test kowf=612) 290 K/CU MM 150-450 MEAN PLATELET VOLUME (BEAKER) (test huej=758) 11.5 fL 9.4-12.3 NUCLEATED RED BLOOD CELLS (BEAKER) (test 19 /100 WBC 0-0 ikxh=501) NEUTROPHILS RELATIVE PERCENT (BEAKER) (test 75 % oujj=940) LYMPHOCYTES RELATIVE PERCENT (BEAKER) (test 16 % kwjh=968) MONOCYTES RELATIVE PERCENT (BEAKER) (test 8 % zbro=158) EOSINOPHILS RELATIVE PERCENT (BEAKER) (test 0 % dkqf=833) BASOPHILS RELATIVE PERCENT (BEAKER) (test 0 % itva=193) NEUTROPHILS ABSOLUTE COUNT (BEAKER) (test 15.32 K/ L 1.56-6.13 zeuy=594) LYMPHOCYTES ABSOLUTE COUNT (BEAKER) (test 3.24 K/ L 1.18-3.74 lifb=504) MONOCYTES ABSOLUTE COUNT (BEAKER) (test 1.61 K/ L 0.24-0.36 jcjg=185) EOSINOPHILS ABSOLUTE COUNT (BEAKER) (test 0.05 K/ L 0.04-0.36 cwon=495) BASOPHILS ABSOLUTE COUNT (BEAKER) (test 0.04 K/ L 0.01-0.08 kzfl=244) IMMATURE GRANULOCYTES-RELATIVE PERCENT (BEAKER) 0 % 0-1 (test axtf=0370) (MANUAL DIFFERENTIAL)2017-11-12 08:23:00 Test Item Value Reference Range Comments TOTAL COUNTED (BEAKER) (test jkbf=2706) WBC MORPHOLOGY (BEAKER) (test fzwg=238) Normal LARGE PLT(BEAKER) (test lsaw=1885) Present HYPOCHROMIA (BEAKER) (test jncm=544) 1+ few POLYCHROMATOPHILLIC RBCS(BEAKER) (test uyez=060) 1+ few SICKLE CELLS (BEAKER) (test cikd=793) 1+ few TARGET CELLS (BEAKER) (test jsqc=281) 1+ few [id number] 08:11:00 Test Item Value Reference Range Comments PHOSPHORUS (BEAKER) (test eana=124) 4.3 mg/dL 2.3-4.7 [id number] 08:11:00 Test Item Value Reference Range Comments MAGNESIUM (BEAKER) (test xhhb=855) 1.3 mg/dL 1.6-2.6 BASIC METABOLIC [id number] 08:11:00 Test Item Value Reference Range Comments SODIUM (BEAKER) (test 140 meq/L 136-145 zkmz=616) POTASSIUM (BEAKER) (test 3.4 meq/L 3.5-5.1 ectu=159) CHLORIDE (BEAKER) (test 103 meq/L 98-107 jhcl=540) CO2 (BEAKER) (test 27 meq/L 22-29 chlk=971) BLOOD UREA NITROGEN 15 mg/dL 7-21 (BEAKER) (test iriu=751) CREATININE (BEAKER) (test 1.10 mg/dL 0.57-1.25 leer=814) GLUCOSE RANDOM (BEAKER) 91 mg/dL 70-105 (test oyrm=095) CALCIUM (BEAKER) (test 8.5 mg/dL 8.4-10.2 hvvm=983) EGFR (BEAKER) (test 67 mL/min/1.73 sq m ESTIMATED GFR IS NOT irqj=8328) ACCURATE CREATININE CLEARANCE IN PREDICTING GLOMERULAR FILTRATION RATE. ESTIMATED GFR IS NOT APPLICABLE FOR DIALYSIS PATIENTS. CALCIUM, [id number] 07:19:00 Test Item Value Reference Range Comments CALCIUM IONIZED (BEAKER) (test fdjj=322) 0.98 mmol/L 1.12-1.27 PH, BLOOD (BEAKER) (test sywp=1998) 7.39 BLOOD [id number] 00:00:00 Test Item Value Reference Range Comments CULTURE (BEAKER) (test math=0293) No growth in 5 days CBC W/PLT COUNT & AUTO [id number] 13:18:00 Test Item Value Reference Range Comments WHITE BLOOD CELL COUNT (BEAKER) (test qibc=673) 20.7 K/ L 3.5-10.5 RED BLOOD CELL COUNT (BEAKER) (test pjgg=353) 2.12 M/ L 3.93-5.22 HEMOGLOBIN (BEAKER) (test uepd=935) 6.7 GM/DL 11.2-15.7 HEMATOCRIT (BEAKER) (test jpqz=443) 20.4 % 34.1-44.9 MEAN CORPUSCULAR VOLUME (BEAKER) (test iuta=189) 96.2 fL 79.4-94.8 MEAN CORPUSCULAR HEMOGLOBIN (BEAKER) (test 31.6 pg 25.6-32.2 kjod=043) MEAN CORPUSCULAR HEMOGLOBIN CONC (BEAKER) (test 32.8 GM/DL 32.2-35.5 kxgy=084) RED CELL DISTRIBUTION WIDTH (BEAKER) (test 25.9 % 11.7-14.4 jerp=208) PLATELET COUNT (BEAKER) (test vezy=166) 262 K/CU MM 150-450 MEAN PLATELET VOLUME (BEAKER) (test osic=203) 11.2 fL 9.4-12.3 NUCLEATED RED BLOOD CELLS (BEAKER) (test 40 /100 WBC 0-0 rclp=178) NEUTROPHILS RELATIVE PERCENT (BEAKER) (test 76 % yxpq=541) LYMPHOCYTES RELATIVE PERCENT (BEAKER) (test 16 % rtrp=430) MONOCYTES RELATIVE PERCENT (BEAKER) (test 8 % ljjv=693) EOSINOPHILS RELATIVE PERCENT (BEAKER) (test 0 % ofgn=016) BASOPHILS RELATIVE PERCENT (BEAKER) (test 0 % twlh=913) NEUTROPHILS ABSOLUTE COUNT (BEAKER) (test 15.60 K/ L 1.56-6.13 bamg=321) LYMPHOCYTES ABSOLUTE COUNT (BEAKER) (test 3.23 K/ L 1.18-3.74 ksxa=169) MONOCYTES ABSOLUTE COUNT (BEAKER) (test 1.54 K/ L 0.24-0.36 cfkd=560) EOSINOPHILS ABSOLUTE COUNT (BEAKER) (test 0.02 K/ L 0.04-0.36 qhdr=907) BASOPHILS ABSOLUTE COUNT (BEAKER) (test 0.05 K/ L 0.01-0.08 iemm=659) IMMATURE GRANULOCYTES-RELATIVE PERCENT (BEAKER) 1 % 0-1 (test wdrr=7609) (MANUAL DIFFERENTIAL)2017-11-11 13:18:00 Test Item Value Reference Range Comments TOTAL COUNTED (BEAKER) (test pmzf=1517) WBC MORPHOLOGY (BEAKER) (test ehtg=871) Normal LARGE PLT(BEAKER) (test tvha=8665) Present POLYCHROMATOPHILLIC RBCS(BEAKER) (test qhua=022) 1+ few SICKLE CELLS (BEAKER) (test zref=982) 1+ few TARGET CELLS (BEAKER) (test cfqf=462) 1+ few [id number] 08:05:00 Test Item Value Reference Range Comments PHOSPHORUS (BEAKER) (test aaiq=457) 5.0 mg/dL 2.3-4.7 [id number] 08:05:00 Test Item Value Reference Range Comments MAGNESIUM (BEAKER) (test czuw=552) 1.6 mg/dL 1.6-2.6 BASIC METABOLIC [id number] 08:05:00 Test Item Value Reference Range Comments SODIUM (BEAKER) (test 140 meq/L 136-145 gnnv=467) POTASSIUM (BEAKER) (test 3.7 meq/L 3.5-5.1 uyyi=911) CHLORIDE (BEAKER) (test 107 meq/L 98-107 hqjf=870) CO2 (BEAKER) (test 24 meq/L 22-29 iind=754) BLOOD UREA NITROGEN 19 mg/dL 7-21 (BEAKER) (test tdfg=629) CREATININE (BEAKER) (test 1.23 mg/dL 0.57-1.25 unnf=731) GLUCOSE RANDOM (BEAKER) 96 mg/dL 70-105 (test cihp=787) CALCIUM (BEAKER) (test 8.5 mg/dL 8.4-10.2 haog=597) EGFR (BEAKER) (test 59 mL/min/1.73 sq m ESTIMATED GFR IS NOT fphf=6863) ACCURATE CREATININE CLEARANCE IN PREDICTING GLOMERULAR FILTRATION RATE. ESTIMATED GFR IS NOT APPLICABLE FOR DIALYSIS PATIENTS. CALCIUM, [id number] 06:38:00 Test Item Value Reference Range Comments CALCIUM IONIZED (BEAKER) (test ivin=795) 1.07 mmol/L 1.12-1.27 PH, BLOOD (BEAKER) (test jykm=5189) 7.31 CBC W/PLT COUNT & AUTO [id number] 14:53:00 Test Item Value Reference Range Comments WHITE BLOOD CELL COUNT (BEAKER) (test vwrt=601) 21.8 K/ L 3.5-10.5 RED BLOOD CELL COUNT (BEAKER) (test jywh=218) 2.17 M/ L 3.93-5.22 HEMOGLOBIN (BEAKER) (test txmr=235) 6.8 GM/DL 11.2-15.7 HEMATOCRIT (BEAKER) (test xhbc=382) 21.3 % 34.1-44.9 MEAN CORPUSCULAR VOLUME (BEAKER) (test weth=299) 98.2 fL 79.4-94.8 MEAN CORPUSCULAR HEMOGLOBIN (BEAKER) (test 31.3 pg 25.6-32.2 unkb=950) MEAN CORPUSCULAR HEMOGLOBIN CONC (BEAKER) (test 31.9 GM/DL 32.2-35.5 zcdz=621) RED CELL DISTRIBUTION WIDTH (BEAKER) (test 27.6 % 11.7-14.4 ktye=579) PLATELET COUNT (BEAKER) (test hbib=209) 244 K/CU MM 150-450 MEAN PLATELET VOLUME (BEAKER) (test bldv=435) 11.4 fL 9.4-12.3 NUCLEATED RED BLOOD CELLS (BEAKER) (test 80 /100 WBC 0-0 pkap=054) NEUTROPHILS RELATIVE PERCENT (BEAKER) (test 82 % eijk=643) LYMPHOCYTES RELATIVE PERCENT (BEAKER) (test 7 % bpee=692) MONOCYTES RELATIVE PERCENT (BEAKER) (test 10 % jcdi=075) EOSINOPHILS RELATIVE PERCENT (BEAKER) (test 0 % zrjb=884) BASOPHILS RELATIVE PERCENT (BEAKER) (test 0 % jsdk=628) NEUTROPHILS ABSOLUTE COUNT (BEAKER) (test 17.85 K/ L 1.56-6.13 hopj=960) LYMPHOCYTES ABSOLUTE COUNT (BEAKER) (test 1.60 K/ L 1.18-3.74 ihoz=822) MONOCYTES ABSOLUTE COUNT (BEAKER) (test 2.14 K/ L 0.24-0.36 atya=342) EOSINOPHILS ABSOLUTE COUNT (BEAKER) (test 0.03 K/ L 0.04-0.36 ahpc=377) BASOPHILS ABSOLUTE COUNT (BEAKER) (test 0.03 K/ L 0.01-0.08 mpjk=379) IMMATURE GRANULOCYTES-RELATIVE PERCENT (BEAKER) 1 % 0-1 (test qzsu=4161) (MANUAL DIFFERENTIAL)2017-11-10 14:53:00 Test Item Value Reference Range Comments TOTAL COUNTED (BEAKER) (test jntn=9644) WBC MORPHOLOGY (BEAKER) (test emgy=519) Normal LARGE PLT(BEAKER) (test ixqx=0695) Present SCHISTOCYTES (BEAKER) (test iuji=071) 1+ few ACANTHOCYTES (BEAKER) (test feek=873) 1+ few ANISOCYTOSIS (BEAKER) (test nrkw=150) 2+ moderate HYPOCHROMIA (BEAKER) (test vkto=154) 2+ moderate MACROCYTES (BEAKER) (test nqlw=344) 3+ many MICROCYTES (BEAKER) (test gmzf=433) 2+ moderate OVALOCYTES (BEAKER) (test daxl=565) 1+ few POIKILOCYTES (BEAKER) (test ajdw=724) 3+ many POLYCHROMATOPHILLIC RBCS(BEAKER) (test bvxo=657) 2+ moderate SICKLE CELLS (BEAKER) (test eaag=257) 2+ moderate TARGET CELLS (BEAKER) (test focr=151) 1+ few BASIC METABOLIC [id number] 08:54:00 Test Item Value Reference Range Comments SODIUM (BEAKER) (test 140 meq/L 136-145 xmpv=021) POTASSIUM (BEAKER) (test 4.0 meq/L 3.5-5.1 whod=710) CHLORIDE (BEAKER) (test 109 meq/L 98-107 gcmy=107) CO2 (BEAKER) (test 19 meq/L 22-29 jfhb=624) BLOOD UREA NITROGEN 21 mg/dL 7-21 (BEAKER) (test uviw=390) CREATININE (BEAKER) (test 1.27 mg/dL 0.57-1.25 ywsc=664) GLUCOSE RANDOM (BEAKER) 122 mg/dL 70-105 (test uooi=358) CALCIUM (BEAKER) (test 8.6 mg/dL 8.4-10.2 tipd=936) EGFR (BEAKER) (test 57 mL/min/1.73 sq m ESTIMATED GFR IS NOT kwas=5034) ACCURATE CREATININE CLEARANCE IN PREDICTING GLOMERULAR FILTRATION RATE. ESTIMATED GFR IS NOT APPLICABLE FOR DIALYSIS PATIENTS. [id number] 08:54:00 Test Item Value Reference Range Comments MAGNESIUM (BEAKER) (test ltuc=091) 1.5 mg/dL 1.6-2.6 [id number] 08:54:00 Test Item Value Reference Range Comments PHOSPHORUS (BEAKER) (test jkgy=211) 4.5 mg/dL 2.3-4.7 COMPREHENSIVE METABOLIC [id number] 08:54:00 Test Item Value Reference Range Comments TOTAL PROTEIN (BEAKER) 8.2 gm/dL 6.0-8.3 (test jvsn=277) ALBUMIN (BEAKER) (test 3.1 g/dL 3.5-5.0 pcfx=2935) ALKALINE PHOSPHATASE 154 U/L 40-150 (BEAKER) (test kdgi=426) BILIRUBIN TOTAL (BEAKER) 1.4 mg/dL 0.2-1.2 (test ijjh=887) SODIUM (BEAKER) (test 140 meq/L 136-145 rlih=431) POTASSIUM (BEAKER) (test 4.0 meq/L 3.5-5.1 pbfp=377) CHLORIDE (BEAKER) (test 109 meq/L 98-107 ktch=270) CO2 (BEAKER) (test 19 meq/L 22-29 nyct=309) BLOOD UREA NITROGEN 21 mg/dL 7-21 (BEAKER) (test iyyf=879) CREATININE (BEAKER) (test 1.27 mg/dL 0.57-1.25 ylgx=542) GLUCOSE RANDOM (BEAKER) 122 mg/dL 70-105 (test njsw=754) CALCIUM (BEAKER) (test 8.6 mg/dL 8.4-10.2 nbyw=845) AST (SGOT) (BEAKER) (test 72 U/L 5-34 whpv=140) ALT (SGPT) (BEAKER) (test 50 U/L 6-55 rorc=090) EGFR (BEAKER) (test 57 mL/min/1.73 sq m ESTIMATED GFR IS NOT edjn=7109) ACCURATE CREATININE CLEARANCE IN PREDICTING GLOMERULAR FILTRATION RATE. ESTIMATED GFR IS NOT APPLICABLE FOR DIALYSIS PATIENTS. CALCIUM, [id number] 07:21:00 Test Item Value Reference Range Comments CALCIUM IONIZED (BEAKER) (test zmyu=688) 1.04 mmol/L 1.12-1.27 PH, BLOOD (BEAKER) (test hrfc=6479) 7.39 CBC W/PLT COUNT & AUTO [id number] 12:10:00 Test Item Value Reference Range Comments WHITE BLOOD CELL COUNT (BEAKER) (test xbyf=639) 20.8 K/ L 3.5-10.5 RED BLOOD CELL COUNT (BEAKER) (test tyiz=154) 2.11 M/ L 3.93-5.22 HEMOGLOBIN (BEAKER) (test blag=722) 6.6 GM/DL 11.2-15.7 HEMATOCRIT (BEAKER) (test kmyj=618) 20.4 % 34.1-44.9 MEAN CORPUSCULAR VOLUME (BEAKER) (test edaj=996) 96.7 fL 79.4-94.8 MEAN CORPUSCULAR HEMOGLOBIN (BEAKER) (test 31.3 pg 25.6-32.2 uqlp=826) MEAN CORPUSCULAR HEMOGLOBIN CONC (BEAKER) (test 32.4 GM/DL 32.2-35.5 etuq=989) RED CELL DISTRIBUTION WIDTH (BEAKER) (test 27.2 % 11.7-14.4 uhwf=270) PLATELET COUNT (BEAKER) (test ltjh=403) 237 K/CU MM 150-450 MEAN PLATELET VOLUME (BEAKER) (test xwnb=092) 10.7 fL 9.4-12.3 NUCLEATED RED BLOOD CELLS (BEAKER) (test 98 /100 WBC 0-0 cuql=382) NEUTROPHILS RELATIVE PERCENT (BEAKER) (test 82 % slfi=750) LYMPHOCYTES RELATIVE PERCENT (BEAKER) (test 6 % utgo=044) MONOCYTES RELATIVE PERCENT (BEAKER) (test 11 % bcjk=375) EOSINOPHILS RELATIVE PERCENT (BEAKER) (test 0 % hbto=297) BASOPHILS RELATIVE PERCENT (BEAKER) (test 0 % ssxt=675) NEUTROPHILS ABSOLUTE COUNT (BEAKER) (test 16.91 K/ L 1.56-6.13 vasd=098) LYMPHOCYTES ABSOLUTE COUNT (BEAKER) (test 1.31 K/ L 1.18-3.74 quej=230) MONOCYTES ABSOLUTE COUNT (BEAKER) (test 2.37 K/ L 0.24-0.36 jqmk=826) EOSINOPHILS ABSOLUTE COUNT (BEAKER) (test 0.01 K/ L 0.04-0.36 osre=141) BASOPHILS ABSOLUTE COUNT (BEAKER) (test 0.05 K/ L 0.01-0.08 qyhl=685) IMMATURE GRANULOCYTES-RELATIVE PERCENT (BEAKER) 1 % 0-1 (test pydu=5917) (MANUAL DIFFERENTIAL)2017-11-09 12:10:00 Test Item Value Reference Range Comments TOTAL COUNTED (BEAKER) (test yyxr=8097) WBC MORPHOLOGY (BEAKER) (test ttoa=766) Normal PLT MORPHOLOGY (BEAKER) (test lbwu=164) Normal ANISOCYTOSIS (BEAKER) (test mctn=954) 2+ moderate MATTHEWS-JOLLY BODIES (BEAKER) (test uaaz=534) 1+ few POIKILOCYTES (BEAKER) (test lfxs=785) 2+ moderate POLYCHROMATOPHILLIC RBCS(BEAKER) (test kpog=885) 1+ few SICKLE CELLS (BEAKER) (test ljoc=766) 2+ moderate TARGET CELLS (BEAKER) (test myng=746) 1+ few CALCIUM, [id number] 07:44:00 Test Item Value Reference Range Comments CALCIUM IONIZED (BEAKER) (test ussl=233) 1.16 mmol/L 1.12-1.27 PH, BLOOD (BEAKER) (test xplu=1063) 7.25 B-TYPE NATRIURETIC FACTOR (BNP)2017-11-09 07:43:00 Test Item Value Reference Range Comments B-TYPE NATRIURETIC PEPTIDE (BEAKER) (test 903 pg/mL 0-100 osbn=444) [id number] 07:27:00 Test Item Value Reference Range Comments PHOSPHORUS (BEAKER) (test xwqc=099) 4.4 mg/dL 2.3-4.7 [id number] 07:27:00 Test Item Value Reference Range Comments MAGNESIUM (BEAKER) (test ugxg=010) 1.7 mg/dL 1.6-2.6 COMPREHENSIVE METABOLIC [id number] 07:27:00 Test Item Value Reference Range Comments TOTAL PROTEIN (BEAKER) 7.8 gm/dL 6.0-8.3 (test lubg=077) ALBUMIN (BEAKER) (test 3.2 g/dL 3.5-5.0 efbk=1754) ALKALINE PHOSPHATASE 165 U/L 40-150 (BEAKER) (test vbov=636) BILIRUBIN TOTAL (BEAKER) 1.3 mg/dL 0.2-1.2 (test jtxb=430) SODIUM (BEAKER) (test 143 meq/L 136-145 awro=640) POTASSIUM (BEAKER) (test 4.2 meq/L 3.5-5.1 oyqf=337) CHLORIDE (BEAKER) (test 112 meq/L 98-107 gfbu=232) CO2 (BEAKER) (test 23 meq/L 22-29 qiyy=984) BLOOD UREA NITROGEN 29 mg/dL 7-21 (BEAKER) (test jtsz=737) CREATININE (BEAKER) (test 1.54 mg/dL 0.57-1.25 gyfp=539) GLUCOSE RANDOM (BEAKER) 108 mg/dL 70-105 (test keip=986) CALCIUM (BEAKER) (test 9.1 mg/dL 8.4-10.2 jspo=083) AST (SGOT) (BEAKER) (test 110 U/L 5-34 hydl=982) ALT (SGPT) (BEAKER) (test 64 U/L 6-55 irvj=283) EGFR (BEAKER) (test 46 mL/min/1.73 sq m ESTIMATED GFR IS NOT ijfb=8397) ACCURATE CREATININE CLEARANCE IN PREDICTING GLOMERULAR FILTRATION RATE. ESTIMATED GFR IS NOT APPLICABLE FOR DIALYSIS PATIENTS. BASIC METABOLIC [id number] 07:27:00 Test Item Value Reference Range Comments SODIUM (BEAKER) (test 143 meq/L 136-145 rlqq=571) POTASSIUM (BEAKER) (test 4.2 meq/L 3.5-5.1 elch=433) CHLORIDE (BEAKER) (test 112 meq/L 98-107 eozd=885) CO2 (BEAKER) (test 23 meq/L 22-29 urnz=468) BLOOD UREA NITROGEN 29 mg/dL 7-21 (BEAKER) (test qotm=275) CREATININE (BEAKER) (test 1.54 mg/dL 0.57-1.25 soxp=238) GLUCOSE RANDOM (BEAKER) 108 mg/dL 70-105 (test klxz=125) CALCIUM (BEAKER) (test 9.1 mg/dL 8.4-10.2 lhcf=003) EGFR (BEAKER) (test 46 mL/min/1.73 sq m ESTIMATED GFR IS NOT nofw=4064) ACCURATE CREATININE CLEARANCE IN PREDICTING GLOMERULAR FILTRATION RATE. ESTIMATED GFR IS NOT APPLICABLE FOR DIALYSIS PATIENTS. RAD, CHEST, 1 VIEW, NON [id number] 20:41:00Reason for exam:->edemaShould this be performed at the bedside?->YesIs the patient ?->NoFINAL REPORT EXAMINATION: AP PORTABLE CHEST RADIOGRAPH CLINICAL INDICATION:Pulmonary edema IMPRESSION: Compared with 04/01/2016. Overall the lung volumes and improved in the interval. However, opacities are again noted in both lungs, most conspicuous in the perihilar regions and lung bases. Although a component of atelectasis is suspected, mild superimposed pulmonary edema yvette underlying pneumonia should also be considered. Superimposed bilateral pleural effusions are again noted, stable. The heart is enlarged as before. Mediastinal contours are grossly unchanged. No evidence of a pneumothorax. A right-sided Port-A-Cath is again noted with the tip projecting over the right atrium. In summary, constellation of findings concerning for fluid overload/heart failure. Signed:Cliff Salcido MDReport Verified Date/Time: 11/08/2017 20:41:24 Reading Location: [address] Reading Room Electronically signed by: CLIFF SALCIDO M.D. on 08:41 PMEOSINOPHIL SMEAR, [id number] 12:49:00 Test Item Value Reference Range Comments EOSINOPHIL SMEAR, URINE (BEAKER) (test No EOS seen No EOS seen akjx=4292) CBC W/PLT COUNT & AUTO [id number] 10:40:00 Test Item Value Reference Range Comments WHITE BLOOD CELL COUNT (BEAKER) (test evwo=531) 18.6 K/ L 3.5-10.5 RED BLOOD CELL COUNT (BEAKER) (test khln=826) 2.21 M/ L 3.93-5.22 HEMOGLOBIN (BEAKER) (test qell=798) 6.8 GM/DL 11.2-15.7 HEMATOCRIT (BEAKER) (test cdok=266) 20.6 % 34.1-44.9 MEAN CORPUSCULAR VOLUME (BEAKER) (test uabo=673) 93.2 fL 79.4-94.8 MEAN CORPUSCULAR HEMOGLOBIN (BEAKER) (test 30.8 pg 25.6-32.2 elie=468) MEAN CORPUSCULAR HEMOGLOBIN CONC (BEAKER) (test 33.0 GM/DL 32.2-35.5 cown=004) RED CELL DISTRIBUTION WIDTH (BEAKER) (test 25.5 % 11.7-14.4 fyoe=851) PLATELET COUNT (BEAKER) (test psdd=420) 255 K/CU MM 150-450 MEAN PLATELET VOLUME (BEAKER) (test cort=690) 10.6 fL 9.4-12.3 NUCLEATED RED BLOOD CELLS (BEAKER) (test 87 /100 WBC 0-0 nubf=098) NEUTROPHILS RELATIVE PERCENT (BEAKER) (test 70 % quoe=786) LYMPHOCYTES RELATIVE PERCENT (BEAKER) (test 14 % vank=054) MONOCYTES RELATIVE PERCENT (BEAKER) (test 14 % rwvs=824) EOSINOPHILS RELATIVE PERCENT (BEAKER) (test 0 % zalt=615) BASOPHILS RELATIVE PERCENT (BEAKER) (test 0 % qytk=644) NEUTROPHILS ABSOLUTE COUNT (BEAKER) (test 12.98 K/ L 1.56-6.13 flma=817) LYMPHOCYTES ABSOLUTE COUNT (BEAKER) (test 2.67 K/ L 1.18-3.74 tzxe=025) MONOCYTES ABSOLUTE COUNT (BEAKER) (test 2.65 K/ L 0.24-0.36 uira=240) EOSINOPHILS ABSOLUTE COUNT (BEAKER) (test 0.07 K/ L 0.04-0.36 ictf=532) BASOPHILS ABSOLUTE COUNT (BEAKER) (test 0.05 K/ L 0.01-0.08 xdbf=817) IMMATURE GRANULOCYTES-RELATIVE PERCENT (BEAKER) 1 % 0-1 (test xnxj=6163) (MANUAL DIFFERENTIAL)2017-11-08 10:40:00 Test Item Value Reference Range Comments TOTAL COUNTED (BEAKER) (test hpfi=8158) WBC MORPHOLOGY (BEAKER) (test pltl=740) Normal LARGE PLT(BEAKER) (test xyvj=1868) Present POLYCHROMATOPHILLIC RBCS(BEAKER) (test clmv=413) 2+ moderate SICKLE CELLS (BEAKER) (test wlmh=841) 3+ many TARGET CELLS (BEAKER) (test vzsq=387) 1+ few CT, [id number] 08:29:00FINAL REPORT HISTORY : Abdominal pain, unspecified Technique: [...] the prior CT scan, in the upper abdomen , there is some nonspecific edema identified.This extends into the peripancreatic region. The findings [...] is colonic diverticulosis. There are no CT findingsto suggest diverticulitis, however. The appendix is poorly visualized. However, grossly, there are no definite secondary CT findings to suggest appendicitis at this time. In the subcutaneous fat inthe supraumbilical region, there is an indeterminant hypodensity [...] with pelvic ultrasound is advised. 8. Small fat- containing umbilical hernia. There is a hypodensity in the subcutaneous fat in the supraumbilical region that could represent a small fluid collection. Signed : Dami Quick MDReport Verified Date/Time: 11/08/2017 08:29:54 Reading Location: [facility] Reading Room - [place] [address] Electronically signed by: DAMI QUICK M.D. on11/08/2017 08:29 AMBASIC METABOLIC [id number] 08:14:00 Test Item Value Reference Range Comments SODIUM (BEAKER) (test 141 meq/L 136-145 gxuj=722) POTASSIUM (BEAKER) (test 4.4 meq/L 3.5-5.1 fifh=035) CHLORIDE (BEAKER) (test 111 meq/L 98-107 ulvf=019) CO2 (BEAKER) (test 17 meq/L 22-29 xugx=741) BLOOD UREA NITROGEN 37 mg/dL 7-21 (BEAKER) (test kbid=849) CREATININE (BEAKER) (test 2.07 mg/dL 0.57-1.25 iaiq=730) GLUCOSE RANDOM (BEAKER) 101 mg/dL 70-105 (test pflq=867) CALCIUM (BEAKER) (test 8.9 mg/dL 8.4-10.2 yajd=105) EGFR (BEAKER) (test 32 mL/min/1.73 sq m ESTIMATED GFR IS NOT xgea=0568) ACCURATE CREATININE CLEARANCE IN PREDICTING GLOMERULAR FILTRATION RATE. ESTIMATED GFR IS NOT APPLICABLE FOR DIALYSIS PATIENTS. COMPREHENSIVE METABOLIC [id number] 08:14:00 Test Item Value Reference Range Comments TOTAL PROTEIN (BEAKER) 8.6 gm/dL 6.0-8.3 (test nlbc=203) ALBUMIN (BEAKER) (test 3.4 g/dL 3.5-5.0 odyj=8846) ALKALINE PHOSPHATASE 155 U/L 40-150 (BEAKER) (test cvda=335) BILIRUBIN TOTAL (BEAKER) 1.7 mg/dL 0.2-1.2 (test apvl=046) SODIUM (BEAKER) (test 141 meq/L 136-145 ioyb=989) POTASSIUM (BEAKER) (test 4.4 meq/L 3.5-5.1 gpac=295) CHLORIDE (BEAKER) (test 111 meq/L 98-107 tecs=432) CO2 (BEAKER) (test 17 meq/L 22-29 kepn=240) BLOOD UREA NITROGEN 37 mg/dL 7-21 (BEAKER) (test homl=637) CREATININE (BEAKER) (test 2.07 mg/dL 0.57-1.25 jgxt=966) GLUCOSE RANDOM (BEAKER) 101 mg/dL 70-105 (test fzho=875) CALCIUM (BEAKER) (test 8.9 mg/dL 8.4-10.2 xyra=131) AST (SGOT) (BEAKER) (test 144 U/L 5-34 sero=295) ALT (SGPT) (BEAKER) (test 70 U/L 6-55 jurt=364) EGFR (BEAKER) (test 32 mL/min/1.73 sq m ESTIMATED GFR IS NOT bibz=2498) ACCURATE CREATININE CLEARANCE IN PREDICTING GLOMERULAR FILTRATION RATE. ESTIMATED GFR IS NOT APPLICABLE FOR DIALYSIS PATIENTS. PROTEIN, RANDOM [id number] 07:49:00 Test Item Value Reference Range Comments PROTEIN, URINE (BEAKER) (test uade=7155) 24 mg/dL 0-14 CREATININE, RANDOM [id number] 07:47:00 Test Item Value Reference Range Comments CREATININE URINE (BEAKER) (test dyuc=883) 46.0 mg/dL Reference Range: No NormalsSODIUM, RANDOM [id number] 07:47:00 Test Item Value Reference Range Comments SODIUM URINE (BEAKER) (test rkhm=441) 65 meq/L Reference Range: No NormalsU/S, ABDOMINAL, [id number] 19:58:00Reason for exam:->GRAYSON, abdominal painShould this be performed at the bedside?-> NoFINAL REPORT Abdominal ultrasound Clinical History: Abdominal pain Discussion: Sonographic evaluation of the the abdomen is performed. The liver is enlarged and measures 23.5 cmin length. The liver echotexture is normal, without [...] mass, hydronephrosis, or shadowing renal calculus. The spleenhas been removed. Segments of the inferior vena cava and aorta visualized demonstrate no abnormality. Impression: 1. Status post cholecystectomy. 2. Status post splenectomy. 3. Hepatomegaly. Signed: Sejal Grullon MDReport Verified Date/Time: 11/07/2017 19:58:17 Reading Location: [address] Consult Reading Room LACTIC ACID, VENOUS, WHOLE [id number] 16:11:00 Test Item Value Reference Range Comments LACTATE BLOOD VENOUS (2) 0.9 mmol/L 0.5-2.2 Specimen slightly hemolyzed (BEAKER) (test zdqa=0559) Effective 12/22/2015: Units/Reference Range ChangeNew: 0.5-2.2 mmol/L Previous: 5 -20 mg/dLCBC W/PLT COUNT & AUTO [id number] 10:20:00 Test Item Value Reference Range Comments WHITE BLOOD CELL COUNT (BEAKER) (test tvqd=371) 23.2 K/ L 3.5-10.5 RED BLOOD CELL COUNT (BEAKER) (test zecx=313) 1.84 M/ L 3.93-5.22 HEMOGLOBIN (BEAKER) (test pcbn=769) 5.8 GM/DL 11.2-15.7 HEMATOCRIT (BEAKER) (test fkac=249) 17.3 % 34.1-44.9 MEAN CORPUSCULAR VOLUME (BEAKER) (test eisp=879) 94.0 fL 79.4-94.8 MEAN CORPUSCULAR HEMOGLOBIN (BEAKER) (test 31.5 pg 25.6-32.2 gilo=933) MEAN CORPUSCULAR HEMOGLOBIN CONC (BEAKER) (test 33.5 GM/DL 32.2-35.5 hmdr=347) RED CELL DISTRIBUTION WIDTH (BEAKER) (test 24.1 % 11.7-14.4 favp=358) PLATELET COUNT (BEAKER) (test kddk=987) 249 K/CU MM 150-450 MEAN PLATELET VOLUME (BEAKER) (test yifr=416) 10.8 fL 9.4-12.3 NUCLEATED RED BLOOD CELLS (BEAKER) (test 48 /100 WBC 0-0 gtcd=691) IMMATURE GRANULOCYTES-RELATIVE PERCENT (BEAKER) 2 % 0-1 (test jyno=5112) (MANUAL DIFFERENTIAL)2017-11-07 10:20:00 Test Item Value Reference Range Comments NEUTROPHILS - REL (DIFF) (BEAKER) (test 68 % bhti=8127) LYMPHOCYTES - REL (DIFF) (BEAKER) (test 27 % xjpo=9000) MONOCYTES - REL (DIFF) (BEAKER) (test ppqy=7103) 5 % EOSINOPHILS - REL (DIFF) (BEAKER) (test 0 % ncgw=4940) BASOPHILS - REL (DIFF) (BEAKER) (test qudt=9951) 0 % NEUTROPHILS - ABS (DIFF) (BEAKER) (test 15.78 K/ L 1.80-8.00 kotu=8719) LYMPHOCYTES - ABS (DIFF) (BEAKER) (test 6.26 K/ L 1.48-4.50 suzv=9710) MONOCYTES - ABS (DIFF) (BEAKER) (test mmyy=5800) 1.16 K/ L 0.00-1.30 EOSINOPHILS - ABS (DIFF) (BEAKER) (test 0.00 K/ L 0.00-0.50 iitu=1402) BASOPHILS - ABS (DIFF) (BEAKER) (test west=1045) 0.00 K/ L 0.00-0.20 TOTAL COUNTED (BEAKER) (test luci=3431) 100 MANUAL NRBC PER 100 CELLS (BEAKER) (test 51 /100 WBC 0-0 ydzm=5846) WBC MORPHOLOGY (BEAKER) (test bxtt=655) Normal PLT MORPHOLOGY (BEAKER) (test jdwg=467) Normal ANISOCYTOSIS (BEAKER) (test mmxl=154) 3+ many POLYCHROMATOPHILLIC RBCS(BEAKER) (test izet=764) 2+ moderate SICKLE CELLS (BEAKER) (test gbcj=962) 3+ many TARGET CELLS (BEAKER) (test lopo=755) 1+ few BASIC METABOLIC [id number] 06:28:00 Test Item Value Reference Range Comments SODIUM (BEAKER) (test 132 meq/L 136-145 cezm=473) POTASSIUM (BEAKER) (test 4.4 meq/L 3.5-5.1 bcwl=050) CHLORIDE (BEAKER) (test 109 meq/L 98-107 zcjs=862) CO2 (BEAKER) (test 20 meq/L 22-29 xjdq=912) BLOOD UREA NITROGEN 39 mg/dL 7-21 (BEAKER) (test lkhc=019) CREATININE (BEAKER) (test 2.20 mg/dL 0.57-1.25 qhek=337) GLUCOSE RANDOM (BEAKER) 123 mg/dL 70-105 (test umgw=839) CALCIUM (BEAKER) (test 8.7 mg/dL 8.4-10.2 iabf=336) EGFR (BEAKER) (test 30 mL/min/1.73 sq m ESTIMATED GFR IS NOT sfne=8353) ACCURATE CREATININE CLEARANCE IN PREDICTING GLOMERULAR FILTRATION RATE. ESTIMATED GFR IS NOT APPLICABLE FOR DIALYSIS PATIENTS. COMPREHENSIVE METABOLIC [id number] 18:37:00 Test Item Value Reference Range Comments TOTAL PROTEIN (BEAKER) 8.5 gm/dL 6.0-8.3 (test cfcj=691) ALBUMIN (BEAKER) (test 3.4 g/dL 3.5-5.0 rsju=2813) ALKALINE PHOSPHATASE 166 U/L 40-150 (BEAKER) (test ckea=871) BILIRUBIN TOTAL (BEAKER) 4.0 mg/dL 0.2-1.2 (test omlp=878) SODIUM (BEAKER) (test 142 meq/L 136-145 crxa=130) POTASSIUM (BEAKER) (test 4.7 meq/L 3.5-5.1 wdjs=209) CHLORIDE (BEAKER) (test 110 meq/L 98-107 fyzn=128) CO2 (BEAKER) (test 22 meq/L 22-29 zyno=416) BLOOD UREA NITROGEN 35 mg/dL 7-21 (BEAKER) (test hgwc=149) CREATININE (BEAKER) (test 1.97 mg/dL 0.57-1.25 lpxv=571) GLUCOSE RANDOM (BEAKER) 119 mg/dL 70-105 (test xszf=317) CALCIUM (BEAKER) (test 8.5 mg/dL 8.4-10.2 mvno=167) AST (SGOT) (BEAKER) (test 278 U/L 5-34 dgpr=108) ALT (SGPT) (BEAKER) (test 92 U/L 6-55 ouzt=185) EGFR (BEAKER) (test 34 mL/min/1.73 sq m ESTIMATED GFR IS NOT wgrw=3715) ACCURATE CREATININE CLEARANCE IN PREDICTING GLOMERULAR FILTRATION RATE. ESTIMATED GFR IS NOT APPLICABLE FOR DIALYSIS PATIENTS. Specimen slightly ictericCBC W/PLT COUNT & AUTO [id number] 14:59 :00 Test Item Value Reference Range Comments WHITE BLOOD CELL COUNT (BEAKER) (test tlkr=584) 24.3 K/ L 3.5-10.5 RED BLOOD CELL COUNT (BEAKER) (test ghwe=035) 1.73 M/ L 3.93-5.22 HEMOGLOBIN (BEAKER) (test fwnp=739) 5.5 GM/DL 11.2-15.7 HEMATOCRIT (BEAKER) (test tics=316) 16.7 % 34.1-44.9 MEAN CORPUSCULAR VOLUME (BEAKER) (test buyg=400) 96.5 fL 79.4-94.8 MEAN CORPUSCULAR HEMOGLOBIN (BEAKER) (test 31.8 pg 25.6-32.2 seew=733) MEAN CORPUSCULAR HEMOGLOBIN CONC (BEAKER) (test 32.9 GM/DL 32.2-35.5 ubuo=532) RED CELL DISTRIBUTION WIDTH (BEAKER) (test 25.8 % 11.7-14.4 tjzo=303) PLATELET COUNT (BEAKER) (test bktb=548) 259 K/CU MM 150-450 MEAN PLATELET VOLUME (BEAKER) (test nrpm=454) 11.1 fL 9.4-12.3 NUCLEATED RED BLOOD CELLS (BEAKER) (test 29 /100 WBC 0-0 ssts=758) IMMATURE GRANULOCYTES-RELATIVE PERCENT (BEAKER) 2 % 0-1 (test qgkg=9010) (MANUAL DIFFERENTIAL)2017-11-06 14:59:00 Test Item Value Reference Range Comments NEUTROPHILS - REL (DIFF) (BEAKER) (test 65 % ienu=4749) LYMPHOCYTES - REL (DIFF) (BEAKER) (test 26 % amrp=3250) MONOCYTES - REL (DIFF) (BEAKER) (test qzps=0733) 8 % MYELOCYTES-REL (DIFF) (BEAKER) (test eprd=0272) 1 % 0-0 NEUTROPHILS - ABS (DIFF) (BEAKER) (test 15.80 K/ L 1.80-8.00 iuui=5208) LYMPHOCYTES - ABS (DIFF) (BEAKER) (test 6.32 K/ L 1.48-4.50 pero=4411) MONOCYTES - ABS (DIFF) (BEAKER) (test omyr=0747) 1.94 K/ L 0.00-1.30 MYELOCYTES-ABS (DIFF) (BEAKER) (test irqc=1742) 0.24 K/ L 0.00-0.00 TOTAL COUNTED (BEAKER) (test jslu=6669) 100 MANUAL NRBC PER 100 CELLS (BEAKER) (test 34 /100 WBC 0-0 jxws=2615) WBC MORPHOLOGY (BEAKER) (test owuq=697) Normal PLT MORPHOLOGY (BEAKER) (test szfl=483) Normal ANISOCYTOSIS (BEAKER) (test zduf=015) 3+ many MATTHEWS-JOLLY BODIES (BEAKER) (test pxqv=630) Present POIKILOCYTES (BEAKER) (test bkoz=684) 1+ few POLYCHROMATOPHILLIC RBCS(BEAKER) (test kbdy=507) 2+ moderate SICKLE CELLS (BEAKER) (test prys=913) 3+ many BASIC METABOLIC [id number] 09:37:00 Test Item Value Reference Range Comments SODIUM (BEAKER) (test 139 meq/L 136-145 idjj=539) POTASSIUM (BEAKER) (test 4.5 meq/L 3.5-5.1 oaqu=165) CHLORIDE (BEAKER) (test 107 meq/L 98-107 vzdy=739) CO2 (BEAKER) (test 19 meq/L 22-29 ujdl=480) BLOOD UREA NITROGEN 27 mg/dL 7-21 (BEAKER) (test kajw=740) CREATININE (BEAKER) (test 1.37 mg/dL 0.57-1.25 efsk=216) GLUCOSE RANDOM (BEAKER) 124 mg/dL 70-105 (test eqba=223) CALCIUM (BEAKER) (test 8.2 mg/dL 8.4-10.2 gqzo=897) EGFR (BEAKER) (test 52 mL/min/1.73 sq m ESTIMATED GFR IS NOT qady=2552) ACCURATE CREATININE CLEARANCE IN PREDICTING GLOMERULAR FILTRATION RATE. ESTIMATED GFR IS NOT APPLICABLE FOR DIALYSIS PATIENTS. Specimen slightly ictericURINALYSIS W/ [id number] 06:22:00 Test Item Value Reference Range Comments COLOR (BEAKER) (test wyox=350) Brown CLARITY (BEAKER) (test mkmj=994) Cloudy SPECIFIC GRAVITY UA (BEAKER) (test 1.015 1.001-1.035 dtit=561) PH UA (BEAKER) (test ppeg=654) 5.5 5.0-8.0 PROTEIN UA (BEAKER) (test kwko=612) 100 mg/dL Negative GLUCOSE UA (BEAKER) (test tvyi=772) Negative Negative KETONES UA (BEAKER) (test gvuf=207) Negative Negative BILIRUBIN UA (BEAKER) (test cxfw=192) Positive Negative BLOOD UA (BEAKER) (test cffg=708) Large Negative NITRITE UA (BEAKER) (test uwxh=209) Negative Negative LEUKOCYTE ESTERASE UA (BEAKER) (test Trace Negative ukvm=527) UROBILINOGEN UA (BEAKER) (test sbng=052) 4.0 mg/dL 0.2-1.0 RBC UA (BEAKER) (test mjov=299) 0 /HPF WBC UA (BEAKER) (test imfv=354) 27 /HPF MUCUS (BEAKER) (test rxtf=0677) Few SQUAMOUS EPITHELIAL (BEAKER) (test 11 /HPF cddx=368) SOURCE(BEAKER) (test bxtk=1555) Urine, Clean Catch BASIC METABOLIC [id number] 10:56:00 Test Item Value Reference Range Comments SODIUM (BEAKER) (test 139 meq/L 136-145 kfox=355) POTASSIUM (BEAKER) (test 4.2 meq/L 3.5-5.1 nipv=056) CHLORIDE (BEAKER) (test 104 meq/L 98-107 wzle=811) CO2 (BEAKER) (test 23 meq/L 22-29 xlpb=489) BLOOD UREA NITROGEN 9 mg/dL 7-21 (BEAKER) (test yjdw=994) CREATININE (BEAKER) (test 0.66 mg/dL 0.57-1.25 hqko=303) GLUCOSE RANDOM (BEAKER) 109 mg/dL 70-105 (test qizv=561) CALCIUM (BEAKER) (test 8.6 mg/dL 8.4-10.2 rbjc=415) EGFR (BEAKER) (test 121 mL/min/1.73 sq m ESTIMATED GFR IS NOT bjzt=7815) ACCURATE CREATININE CLEARANCE IN PREDICTING GLOMERULAR FILTRATION RATE. ESTIMATED GFR IS NOT APPLICABLE FOR DIALYSIS PATIENTS. Specimen slightly ictericCBC W/PLT COUNT & AUTO [id number] 09:17 :00 Test Item Value Reference Range Comments WHITE BLOOD CELL COUNT (BEAKER) (test pjaj=365) 18.2 K/ L 3.5-10.5 RED BLOOD CELL COUNT (BEAKER) (test qhsl=219) 2.05 M/ L 3.93-5.22 HEMOGLOBIN (BEAKER) (test cxwu=470) 6.4 GM/DL 11.2-15.7 HEMATOCRIT (BEAKER) (test xezb=126) 19.9 % 34.1-44.9 MEAN CORPUSCULAR VOLUME (BEAKER) (test uyex=423) 97.1 fL 79.4-94.8 MEAN CORPUSCULAR HEMOGLOBIN (BEAKER) (test 31.2 pg 25.6-32.2 nimz=914) MEAN CORPUSCULAR HEMOGLOBIN CONC (BEAKER) (test 32.2 GM/DL 32.2-35.5 gtmc=707) RED CELL DISTRIBUTION WIDTH (BEAKER) (test 25.4 % 11.7-14.4 tpkg=892) PLATELET COUNT (BEAKER) (test vcxe=197) 227 K/CU MM 150-450 MEAN PLATELET VOLUME (BEAKER) (test lgnx=194) 10.4 fL 9.4-12.3 NUCLEATED RED BLOOD CELLS (BEAKER) (test 18 /100 WBC 0-0 ltzr=057) NEUTROPHILS RELATIVE PERCENT (BEAKER) (test 57 % wmal=668) LYMPHOCYTES RELATIVE PERCENT (BEAKER) (test 24 % cztm=552) MONOCYTES RELATIVE PERCENT (BEAKER) (test 15 % tlxq=429) EOSINOPHILS RELATIVE PERCENT (BEAKER) (test 3 % andg=634) BASOPHILS RELATIVE PERCENT (BEAKER) (test 0 % ykgi=441) NEUTROPHILS ABSOLUTE COUNT (BEAKER) (test 10.46 K/ L 1.56-6.13 adop=906) LYMPHOCYTES ABSOLUTE COUNT (BEAKER) (test 4.31 K/ L 1.18-3.74 hlmm=847) MONOCYTES ABSOLUTE COUNT (BEAKER) (test 2.72 K/ L 0.24-0.36 gpdq=729) EOSINOPHILS ABSOLUTE COUNT (BEAKER) (test 0.45 K/ L 0.04-0.36 offk=796) BASOPHILS ABSOLUTE COUNT (BEAKER) (test 0.07 K/ L 0.01-0.08 byzy=385) IMMATURE GRANULOCYTES-RELATIVE PERCENT (BEAKER) 1 % 0-1 (test gajk=7633) (MANUAL DIFFERENTIAL)2017-11-05 09:17:00 Test Item Value Reference Range Comments TOTAL COUNTED (BEAKER) (test xxna=0417) WBC MORPHOLOGY (BEAKER) (test ttsm=422) Normal PLT MORPHOLOGY (BEAKER) (test qkav=034) Normal ANISOCYTOSIS (BEAKER) (test alct=523) 2+ moderate POLYCHROMATOPHILLIC RBCS(BEAKER) (test puyd=284) 2+ moderate SICKLE CELLS (BEAKER) (test xdxf=096) 2+ moderate TARGET CELLS (BEAKER) (test aucv=832) 2+ moderate CREATINE KINASE (CK), TOTAL AND [id number] 22:01:00 Test Item Value Reference Range Comments CREATINE KINASE TOTAL (BEAKER) (test 10 U/L 29-200 bcwi=401) CREATINE KINASE-MB (BEAKER) (test 0.1 ng/mL 0.0-6.6 gtxb=350) CREATINE KINASE-MB INDEX (BEAKER) (test 1.0 % Unable to Calculate dmtt=970) CK-MB Reference Range:<6.7 Normal6.7-10.0 Borderline>10.0 AbnormalTROPONIN [id number] 21:16:00 Test Item Value Reference Range Comments TROPONIN I (BEAKER) (test sazo=813) < ng/mL 0.00-0.03 Troponin I (TnI) levels must be interpreted [...] failure, acidosis, acute neurological disease, and persistent tachyarrhythmia.CBC W/PLT COUNT & AUTO [id number] 06:49:00 Test Item Value Reference Range Comments WHITE BLOOD CELL COUNT (BEAKER) (test yhwy=712) 13.3 K/ L 3.5-10.5 RED BLOOD CELL COUNT (BEAKER) (test cref=195) 2.18 M/ L 3.93-5.22 HEMOGLOBIN (BEAKER) (test xihp=889) 6.8 GM/DL 11.2-15.7 HEMATOCRIT (BEAKER) (test gfur=403) 21.5 % 34.1-44.9 MEAN CORPUSCULAR VOLUME (BEAKER) (test jzhc=788) 98.6 fL 79.4-94.8 MEAN CORPUSCULAR HEMOGLOBIN (BEAKER) (test 31.2 pg 25.6-32.2 ewyw=605) MEAN CORPUSCULAR HEMOGLOBIN CONC (BEAKER) (test 31.6 GM/DL 32.2-35.5 djov=256) RED CELL DISTRIBUTION WIDTH (BEAKER) (test 21.1 % 11.7-14.4 xqai=210) PLATELET COUNT (BEAKER) (test mdbw=866) 192 K/CU MM 150-450 MEAN PLATELET VOLUME (BEAKER) (test iqxn=932) 11.4 fL 9.4-12.3 NUCLEATED RED BLOOD CELLS (BEAKER) (test 1 /100 WBC 0-0 kviq=029) NEUTROPHILS RELATIVE PERCENT (BEAKER) (test 51 % skcr=301) LYMPHOCYTES RELATIVE PERCENT (BEAKER) (test 30 % uuti=113) MONOCYTES RELATIVE PERCENT (BEAKER) (test 16 % phku=917) EOSINOPHILS RELATIVE PERCENT (BEAKER) (test 2 % rmav=508) BASOPHILS RELATIVE PERCENT (BEAKER) (test 0 % mzby=243) NEUTROPHILS ABSOLUTE COUNT (BEAKER) (test 6.84 K/ L 1.56-6.13 xong=825) LYMPHOCYTES ABSOLUTE COUNT (BEAKER) (test 4.06 K/ L 1.18-3.74 ukok=799) MONOCYTES ABSOLUTE COUNT (BEAKER) (test 2.12 K/ L 0.24-0.36 tynz=855) EOSINOPHILS ABSOLUTE COUNT (BEAKER) (test 0.26 K/ L 0.04-0.36 jldj=781) BASOPHILS ABSOLUTE COUNT (BEAKER) (test 0.02 K/ L 0.01-0.08 okqt=906) IMMATURE GRANULOCYTES-RELATIVE PERCENT (BEAKER) 0 % 0-1 (test foqc=6374) BASIC METABOLIC [id number] 07:06:00 Test Item Value Reference Range Comments SODIUM (BEAKER) (test 138 meq/L 136-145 gsvb=423) POTASSIUM (BEAKER) (test 4.2 meq/L 3.5-5.1 yxdm=113) CHLORIDE (BEAKER) (test 103 meq/L 98-107 smog=604) CO2 (BEAKER) (test 28 meq/L 22-29 cpai=974) BLOOD UREA NITROGEN 11 mg/dL 7-21 (BEAKER) (test yled=896) CREATININE (BEAKER) (test 0.55 mg/dL 0.57-1.25 xteq=377) GLUCOSE RANDOM (BEAKER) 95 mg/dL 70-105 (test bipa=110) CALCIUM (BEAKER) (test 9.5 mg/dL 8.4-10.2 jufg=273) EGFR (BEAKER) (test 150 mL/min/1.73 sq m ESTIMATED GFR IS NOT corq=8617) ACCURATE CREATININE CLEARANCE IN PREDICTING GLOMERULAR FILTRATION RATE. ESTIMATED GFR IS NOT APPLICABLE FOR DIALYSIS PATIENTS. CBC W/PLT COUNT & AUTO [id number] 06:48:00 Test Item Value Reference Range Comments WHITE BLOOD CELL COUNT (BEAKER) (test ljww=368) 12.8 K/ L 3.5-10.5 RED BLOOD CELL COUNT (BEAKER) (test vqjo=792) 2.22 M/ L 3.93-5.22 HEMOGLOBIN (BEAKER) (test bkdt=060) 7.2 GM/DL 11.2-15.7 HEMATOCRIT (BEAKER) (test sucm=766) 21.9 % 34.1-44.9 MEAN CORPUSCULAR VOLUME (BEAKER) (test mwnh=715) 98.6 fL 79.4-94.8 MEAN CORPUSCULAR HEMOGLOBIN (BEAKER) (test 32.4 pg 25.6-32.2 fzdt=829) MEAN CORPUSCULAR HEMOGLOBIN CONC (BEAKER) (test 32.9 GM/DL 32.2-35.5 fzgn=357) RED CELL DISTRIBUTION WIDTH (BEAKER) (test 21.2 % 11.7-14.4 uzkb=931) PLATELET COUNT (BEAKER) (test qpal=530) 176 K/CU MM 150-450 MEAN PLATELET VOLUME (BEAKER) (test acie=412) 11.2 fL 9.4-12.3 NUCLEATED RED BLOOD CELLS (BEAKER) (test 5 /100 WBC 0-0 alde=231) NEUTROPHILS RELATIVE PERCENT (BEAKER) (test 49 % ulhe=183) LYMPHOCYTES RELATIVE PERCENT (BEAKER) (test 31 % epbr=979) MONOCYTES RELATIVE PERCENT (BEAKER) (test 19 % mfmq=012) EOSINOPHILS RELATIVE PERCENT (BEAKER) (test 2 % yrmt=299) BASOPHILS RELATIVE PERCENT (BEAKER) (test 0 % iddp=562) NEUTROPHILS ABSOLUTE COUNT (BEAKER) (test 6.23 K/ L 1.56-6.13 ywer=628) LYMPHOCYTES ABSOLUTE COUNT (BEAKER) (test 3.90 K/ L 1.18-3.74 kcnq=738) MONOCYTES ABSOLUTE COUNT (BEAKER) (test 2.37 K/ L 0.24-0.36 zmrw=702) EOSINOPHILS ABSOLUTE COUNT (BEAKER) (test 0.24 K/ L 0.04-0.36 oybz=352) BASOPHILS ABSOLUTE COUNT (BEAKER) (test 0.01 K/ L 0.01-0.08 oblv=361) IMMATURE GRANULOCYTES-RELATIVE PERCENT (BEAKER) 0 % 0-1 (test vbui=9325) (MANUAL DIFFERENTIAL)2017-06-03 06:48:00 Test Item Value Reference Range Comments TOTAL COUNTED (BEAKER) (test wqoy=3010) WBC MORPHOLOGY (BEAKER) (test tjrz=767) Normal PLT MORPHOLOGY (BEAKER) (test vqri=417) Normal ANISOCYTOSIS (BEAKER) (test sjst=199) 3+ many MATTHEWS-JOLLY BODIES (BEAKER) (test lrdu=079) Present MACROCYTES (BEAKER) (test ieic=656) 3+ many SICKLE CELLS (BEAKER) (test yzrr=286) 1+ few TARGET CELLS (BEAKER) (test vonx=974) 1+ few BASIC METABOLIC [id number] 07:33:00 Test Item Value Reference Range Comments SODIUM (BEAKER) (test 138 meq/L 136-145 czlq=373) POTASSIUM (BEAKER) (test 4.5 meq/L 3.5-5.1 oquk=797) CHLORIDE (BEAKER) (test 102 meq/L 98-107 nnji=880) CO2 (BEAKER) (test 27 meq/L 22-29 remz=476) BLOOD UREA NITROGEN 11 mg/dL 7-21 (BEAKER) (test cvzb=029) CREATININE (BEAKER) (test 0.55 mg/dL 0.57-1.25 xbwi=026) GLUCOSE RANDOM (BEAKER) 85 mg/dL 70-105 (test cnzj=371) CALCIUM (BEAKER) (test 9.5 mg/dL 8.4-10.2 dubr=607) EGFR (BEAKER) (test 150 mL/min/1.73 sq m ESTIMATED GFR IS NOT qsai=8400) ACCURATE CREATININE CLEARANCE IN PREDICTING GLOMERULAR FILTRATION RATE. ESTIMATED GFR IS NOT APPLICABLE FOR DIALYSIS PATIENTS. CBC W/PLT COUNT & AUTO [id number] 07:13:00 Test Item Value Reference Range Comments WHITE BLOOD CELL COUNT (BEAKER) (test fhiz=594) 14.2 K/ L 3.5-10.5 RED BLOOD CELL COUNT (BEAKER) (test jbwc=522) 2.39 M/ L 3.93-5.22 HEMOGLOBIN (BEAKER) (test chfu=751) 7.6 GM/DL 11.2-15.7 HEMATOCRIT (BEAKER) (test omur=103) 23.5 % 34.1-44.9 MEAN CORPUSCULAR VOLUME (BEAKER) (test wbcm=405) 98.3 fL 79.4-94.8 MEAN CORPUSCULAR HEMOGLOBIN (BEAKER) (test 31.8 pg 25.6-32.2 xkxm=102) MEAN CORPUSCULAR HEMOGLOBIN CONC (BEAKER) (test 32.3 GM/DL 32.2-35.5 dwlf=013) RED CELL DISTRIBUTION WIDTH (BEAKER) (test 21.1 % 11.7-14.4 vpjm=851) PLATELET COUNT (BEAKER) (test blnm=515) 173 K/CU MM 150-450 MEAN PLATELET VOLUME (BEAKER) (test ajxz=375) 11.7 fL 9.4-12.3 NUCLEATED RED BLOOD CELLS (BEAKER) (test 11 /100 WBC 0-0 qcuo=965) NEUTROPHILS RELATIVE PERCENT (BEAKER) (test 53 % tmfz=797) LYMPHOCYTES RELATIVE PERCENT (BEAKER) (test 27 % iixi=855) MONOCYTES RELATIVE PERCENT (BEAKER) (test 18 % homu=126) EOSINOPHILS RELATIVE PERCENT (BEAKER) (test 1 % snge=253) BASOPHILS RELATIVE PERCENT (BEAKER) (test 0 % wkfj=792) NEUTROPHILS ABSOLUTE COUNT (BEAKER) (test 7.56 K/ L 1.56-6.13 rasd=521) LYMPHOCYTES ABSOLUTE COUNT (BEAKER) (test 3.89 K/ L 1.18-3.74 syvc=137) MONOCYTES ABSOLUTE COUNT (BEAKER) (test 2.52 K/ L 0.24-0.36 mwfb=774) EOSINOPHILS ABSOLUTE COUNT (BEAKER) (test 0.20 K/ L 0.04-0.36 ufrk=364) BASOPHILS ABSOLUTE COUNT (BEAKER) (test 0.02 K/ L 0.01-0.08 tnkk=831) IMMATURE GRANULOCYTES-RELATIVE PERCENT (BEAKER) 0 % 0-1 (test qjrr=4108) CBC W/PLT COUNT & AUTO [id number] 16:45:00 Test Item Value Reference Range Comments WHITE BLOOD CELL COUNT (BEAKER) (test ngml=899) 15.1 K/ L 3.5-10.5 RED BLOOD CELL COUNT (BEAKER) (test qmfj=961) 2.36 M/ L 3.93-5.22 HEMOGLOBIN (BEAKER) (test lwvx=266) 7.5 GM/DL 11.2-15.7 HEMATOCRIT (BEAKER) (test yvox=420) 23.0 % 34.1-44.9 MEAN CORPUSCULAR VOLUME (BEAKER) (test osqz=567) 97.5 fL 79.4-94.8 MEAN CORPUSCULAR HEMOGLOBIN (BEAKER) (test 31.8 pg 25.6-32.2 bhqi=180) MEAN CORPUSCULAR HEMOGLOBIN CONC (BEAKER) (test 32.6 GM/DL 32.2-35.5 cbiw=092) RED CELL DISTRIBUTION WIDTH (BEAKER) (test 20.7 % 11.7-14.4 stut=943) PLATELET COUNT (BEAKER) (test pkuq=428) 179 K/CU MM 150-450 MEAN PLATELET VOLUME (BEAKER) (test fdof=502) 11.9 fL 9.4-12.3 NUCLEATED RED BLOOD CELLS (BEAKER) (test 12 /100 WBC 0-0 teyb=529) NEUTROPHILS RELATIVE PERCENT (BEAKER) (test 53 % parx=009) LYMPHOCYTES RELATIVE PERCENT (BEAKER) (test 27 % qoad=454) MONOCYTES RELATIVE PERCENT (BEAKER) (test 18 % hqls=141) EOSINOPHILS RELATIVE PERCENT (BEAKER) (test 2 % ixhc=892) BASOPHILS RELATIVE PERCENT (BEAKER) (test 0 % qcpw=759) NEUTROPHILS ABSOLUTE COUNT (BEAKER) (test 8.03 K/ L 1.56-6.13 fega=081) LYMPHOCYTES ABSOLUTE COUNT (BEAKER) (test 3.99 K/ L 1.18-3.74 ezbk=672) MONOCYTES ABSOLUTE COUNT (BEAKER) (test 2.65 K/ L 0.24-0.36 ykkd=881) EOSINOPHILS ABSOLUTE COUNT (BEAKER) (test 0.31 K/ L 0.04-0.36 xpkz=838) BASOPHILS ABSOLUTE COUNT (BEAKER) (test 0.02 K/ L 0.01-0.08 fhuw=893) IMMATURE GRANULOCYTES-RELATIVE PERCENT (BEAKER) 0 % 0-1 (test rybl=3346) BASIC METABOLIC [id number] 06:17:00 Test Item Value Reference Range Comments SODIUM (BEAKER) (test 138 meq/L 136-145 ewns=748) POTASSIUM (BEAKER) (test 4.1 meq/L 3.5-5.1 ejmh=762) CHLORIDE (BEAKER) (test 100 meq/L 98-107 fjjo=401) CO2 (BEAKER) (test 30 meq/L 22-29 cdgw=867) BLOOD UREA NITROGEN 11 mg/dL 7-21 (BEAKER) (test bakz=028) CREATININE (BEAKER) (test 0.58 mg/dL 0.57-1.25 myxx=991) GLUCOSE RANDOM (BEAKER) 90 mg/dL 70-105 (test wwad=040) CALCIUM (BEAKER) (test 9.4 mg/dL 8.4-10.2 ypju=841) EGFR (BEAKER) (test 141 mL/min/1.73 sq m ESTIMATED GFR IS NOT rahr=3370) ACCURATE CREATININE CLEARANCE IN PREDICTING GLOMERULAR FILTRATION RATE. ESTIMATED GFR IS NOT APPLICABLE FOR DIALYSIS PATIENTS. CBC W/PLT COUNT & AUTO [id number] 13:41:00 Test Item Value Reference Range Comments WHITE BLOOD CELL COUNT (BEAKER) (test jxal=481) 13.9 K/ L 3.5-10.5 RED BLOOD CELL COUNT (BEAKER) (test ckpq=153) 2.38 M/ L 3.93-5.22 HEMOGLOBIN (BEAKER) (test yywt=252) 7.5 GM/DL 11.2-15.7 HEMATOCRIT (BEAKER) (test fbri=538) 23.2 % 34.1-44.9 MEAN CORPUSCULAR VOLUME (BEAKER) (test fsdq=461) 97.5 fL 79.4-94.8 MEAN CORPUSCULAR HEMOGLOBIN (BEAKER) (test 31.5 pg 25.6-32.2 hcle=910) MEAN CORPUSCULAR HEMOGLOBIN CONC (BEAKER) (test 32.3 GM/DL 32.2-35.5 mdeb=730) RED CELL DISTRIBUTION WIDTH (BEAKER) (test 20.2 % 11.7-14.4 cxbc=217) PLATELET COUNT (BEAKER) (test evgx=282) 171 K/CU MM 150-450 MEAN PLATELET VOLUME (BEAKER) (test gibw=676) 12.0 fL 9.4-12.3 NUCLEATED RED BLOOD CELLS (BEAKER) (test 8 /100 WBC 0-0 ezzt=091) NEUTROPHILS RELATIVE PERCENT (BEAKER) (test 57 % nduf=348) LYMPHOCYTES RELATIVE PERCENT (BEAKER) (test 23 % cbwf=143) MONOCYTES RELATIVE PERCENT (BEAKER) (test 18 % syrd=181) EOSINOPHILS RELATIVE PERCENT (BEAKER) (test 2 % zcmu=535) BASOPHILS RELATIVE PERCENT (BEAKER) (test 0 % mtbg=662) NEUTROPHILS ABSOLUTE COUNT (BEAKER) (test 7.89 K/ L 1.56-6.13 nfxl=301) LYMPHOCYTES ABSOLUTE COUNT (BEAKER) (test 3.13 K/ L 1.18-3.74 zmxs=685) MONOCYTES ABSOLUTE COUNT (BEAKER) (test 2.52 K/ L 0.24-0.36 tyxz=937) EOSINOPHILS ABSOLUTE COUNT (BEAKER) (test 0.25 K/ L 0.04-0.36 fdjm=929) BASOPHILS ABSOLUTE COUNT (BEAKER) (test 0.02 K/ L 0.01-0.08 dyin=882) IMMATURE GRANULOCYTES-RELATIVE PERCENT (BEAKER) 1 % 0-1 (test sqdz=4215) (MANUAL DIFFERENTIAL)2017-05-31 13:41:00 Test Item Value Reference Range Comments TOTAL COUNTED (BEAKER) (test rnvr=5860) WBC MORPHOLOGY (BEAKER) (test pxfd=160) Normal PLT MORPHOLOGY (BEAKER) (test vnul=120) Normal POLYCHROMATOPHILLIC RBCS(BEAKER) (test pwtx=598) 2+ moderate SICKLE CELLS (BEAKER) (test fdwv=048) 1+ few TARGET CELLS (BEAKER) (test hdfs=217) 2+ moderate URINE [id number] 12:19:00 Test Item Value Reference Range Comments CULTURE (BEAKER) (test 20-29,000 col/mL skin valentino tnvg=9682) BASIC METABOLIC [id number] 07:23:00 Test Item Value Reference Range Comments SODIUM (BEAKER) (test 136 meq/L 136-145 trtd=823) POTASSIUM (BEAKER) (test 3.9 meq/L 3.5-5.1 xljq=840) CHLORIDE (BEAKER) (test 97 meq/L 98-107 jotx=837) CO2 (BEAKER) (test 30 meq/L 22-29 fqpg=498) BLOOD UREA NITROGEN 9 mg/dL 7-21 (BEAKER) (test mwlc=522) CREATININE (BEAKER) (test 0.56 mg/dL 0.57-1.25 fuss=169) GLUCOSE RANDOM (BEAKER) 100 mg/dL 70-105 (test mqsp=067) CALCIUM (BEAKER) (test 9.5 mg/dL 8.4-10.2 hvop=219) EGFR (BEAKER) (test 147 mL/min/1.73 sq m ESTIMATED GFR IS NOT utmw=9949) ACCURATE CREATININE CLEARANCE IN PREDICTING GLOMERULAR FILTRATION RATE. ESTIMATED GFR IS NOT APPLICABLE FOR DIALYSIS PATIENTS. U/S, ABDOMINAL, [id number] 23:52:00Reason for exam:->painShould this be performed at the bedside?->NoFINAL REPORT Abdominal ultrasound dated 05/30/2017 Clinical information:pain Comment: Real- time transabdominal ultrasound was performed. Liver is enlarged and measures 21 cm in length. The echogenicity of the liver is heterogeneous. No focal lesion is noted in the liver. Spleen is noted visualized. Gallbladder is surgically absent. Intrahepatic biliary dilatation is seen. Common bile duct measures 3 mm in diameter. Main portal vein measures 12 mm in diameter. Pancreas is incompletely visualized. Right kidney measures 13.2 x 4.7 x 5.5 cm. Left kidney measures 14 x 6.3 x 5.4 cm. Echogenicity of both kidney is normal. No hydronephrosis or solid mass seen in either kidney. A 2.4 x 1.6 x 2.5 cm septated cyst is seen in the right kidney. No ascites is present in the abdomen. Abdominal aorta is normal in caliber. IVC and Hepatic veins are patent. Impression: 1. Hepatomegaly.2. Nonspecific intrahepatic biliary dilatation.3. Right renal cyst.4. Status post splenectomy and cholecystectomy. Signed: Jamey Gay [facility]ENTER[facility]ort Verified Date/Time: 05/30/2017 23:52:25 Reading Location: [facility] [id number] Consult Reading Room 11:52 PMCBC W/PLT COUNT & AUTO [id number] 17:30:00 Test Item Value Reference Range Comments WHITE BLOOD CELL COUNT (BEAKER) (test majp=918) 14.0 K/ L 3.5-10.5 RED BLOOD CELL COUNT (BEAKER) (test neyx=128) 2.41 M/ L 3.93-5.22 HEMOGLOBIN (BEAKER) (test bycl=821) 7.7 GM/DL 11.2-15.7 HEMATOCRIT (BEAKER) (test dwrh=810) 23.3 % 34.1-44.9 MEAN CORPUSCULAR VOLUME (BEAKER) (test tvwd=561) 96.7 fL 79.4-94.8 MEAN CORPUSCULAR HEMOGLOBIN (BEAKER) (test 32.0 pg 25.6-32.2 swij=285) MEAN CORPUSCULAR HEMOGLOBIN CONC (BEAKER) (test 33.0 GM/DL 32.2-35.5 scdt=180) RED CELL DISTRIBUTION WIDTH (BEAKER) (test 20.0 % 11.7-14.4 tmyt=748) PLATELET COUNT (BEAKER) (test ifis=860) 163 K/CU MM 150-450 MEAN PLATELET VOLUME (BEAKER) (test rzlx=207) 11.7 fL 9.4-12.3 NUCLEATED RED BLOOD CELLS (BEAKER) (test 4 /100 WBC 0-0 flov=326) NEUTROPHILS RELATIVE PERCENT (BEAKER) (test 47 % ddmu=578) LYMPHOCYTES RELATIVE PERCENT (BEAKER) (test 32 % alpb=785) MONOCYTES RELATIVE PERCENT (BEAKER) (test 18 % dsou=335) EOSINOPHILS RELATIVE PERCENT (BEAKER) (test 3 % fhfo=620) BASOPHILS RELATIVE PERCENT (BEAKER) (test 0 % owmd=961) NEUTROPHILS ABSOLUTE COUNT (BEAKER) (test 6.58 K/ L 1.56-6.13 couo=622) LYMPHOCYTES ABSOLUTE COUNT (BEAKER) (test 4.40 K/ L 1.18-3.74 rshx=596) MONOCYTES ABSOLUTE COUNT (BEAKER) (test 2.49 K/ L 0.24-0.36 xfvf=402) EOSINOPHILS ABSOLUTE COUNT (BEAKER) (test 0.44 K/ L 0.04-0.36 znhh=964) BASOPHILS ABSOLUTE COUNT (BEAKER) (test 0.02 K/ L 0.01-0.08 vaow=363) IMMATURE GRANULOCYTES-RELATIVE PERCENT (BEAKER) 0 % 0-1 (test suxa=1201) BASIC METABOLIC [id number] 06:33:00 Test Item Value Reference Range Comments SODIUM (BEAKER) (test 139 meq/L 136-145 fain=419) POTASSIUM (BEAKER) (test 4.0 meq/L 3.5-5.1 syde=969) CHLORIDE (BEAKER) (test 102 meq/L 98-107 rhoo=775) CO2 (BEAKER) (test 28 meq/L 22-29 bijl=250) BLOOD UREA NITROGEN 7 mg/dL 7-21 (BEAKER) (test xfaf=072) CREATININE (BEAKER) (test 0.54 mg/dL 0.57-1.25 nwhw=044) GLUCOSE RANDOM (BEAKER) 95 mg/dL 70-105 (test sjkw=955) CALCIUM (BEAKER) (test 9.6 mg/dL 8.4-10.2 hzrs=872) EGFR (BEAKER) (test 153 mL/min/1.73 sq m ESTIMATED GFR IS NOT mhfn=5432) ACCURATE CREATININE CLEARANCE IN PREDICTING GLOMERULAR FILTRATION RATE. ESTIMATED GFR IS NOT APPLICABLE FOR DIALYSIS PATIENTS. CBC W/PLT COUNT & AUTO [id number] 13:41:00 Test Item Value Reference Range Comments WHITE BLOOD CELL COUNT (BEAKER) (test ggzl=972) 14.6 K/ L 3.5-10.5 RED BLOOD CELL COUNT (BEAKER) (test paun=603) 1.85 M/ L 3.93-5.22 HEMOGLOBIN (BEAKER) (test bpdk=518) 5.9 GM/DL 11.2-15.7 HEMATOCRIT (BEAKER) (test xrop=155) 18.5 % 34.1-44.9 MEAN CORPUSCULAR VOLUME (BEAKER) (test bhuo=434) 100.0 fL 79.4-94.8 MEAN CORPUSCULAR HEMOGLOBIN (BEAKER) (test 31.9 pg 25.6-32.2 cfff=345) MEAN CORPUSCULAR HEMOGLOBIN CONC (BEAKER) (test 31.9 GM/DL 32.2-35.5 monb=522) RED CELL DISTRIBUTION WIDTH (BEAKER) (test 21.0 % 11.7-14.4 lelg=850) PLATELET COUNT (BEAKER) (test kjty=050) 169 K/CU MM 150-450 MEAN PLATELET VOLUME (BEAKER) (test yqlf=628) 12.1 fL 9.4-12.3 NUCLEATED RED BLOOD CELLS (BEAKER) (test 3 /100 WBC 0-0 cvbv=596) NEUTROPHILS RELATIVE PERCENT (BEAKER) (test 52 % slrn=236) LYMPHOCYTES RELATIVE PERCENT (BEAKER) (test 28 % bcyj=036) MONOCYTES RELATIVE PERCENT (BEAKER) (test 16 % hjwf=228) EOSINOPHILS RELATIVE PERCENT (BEAKER) (test 4 % szcf=345) BASOPHILS RELATIVE PERCENT (BEAKER) (test 0 % reyq=147) NEUTROPHILS ABSOLUTE COUNT (BEAKER) (test 7.50 K/ L 1.56-6.13 cvxf=692) LYMPHOCYTES ABSOLUTE COUNT (BEAKER) (test 4.08 K/ L 1.18-3.74 slbo=806) MONOCYTES ABSOLUTE COUNT (BEAKER) (test 2.34 K/ L 0.24-0.36 vnec=844) EOSINOPHILS ABSOLUTE COUNT (BEAKER) (test 0.56 K/ L 0.04-0.36 dpzz=315) BASOPHILS ABSOLUTE COUNT (BEAKER) (test 0.02 K/ L 0.01-0.08 nzhi=652) IMMATURE GRANULOCYTES-RELATIVE PERCENT (BEAKER) 0 % 0-1 (test fubb=3999) (MANUAL DIFFERENTIAL)2017-05-29 13:41:00 Test Item Value Reference Range Comments TOTAL COUNTED (BEAKER) (test eepb=7305) WBC MORPHOLOGY (BEAKER) (test fzwj=722) Normal PLT MORPHOLOGY (BEAKER) (test sueg=601) Normal POLYCHROMATOPHILLIC RBCS(BEAKER) (test xzez=631) 2+ moderate SICKLE CELLS (BEAKER) (test gufh=638) 1+ few TARGET CELLS (BEAKER) (test jyhs=676) 2+ moderate BASIC METABOLIC [id number] 07:38:00 Test Item Value Reference Range Comments SODIUM (BEAKER) (test 140 meq/L 136-145 lgvy=488) POTASSIUM (BEAKER) (test 3.9 meq/L 3.5-5.1 nxsr=573) CHLORIDE (BEAKER) (test 104 meq/L 98-107 zpfs=381) CO2 (BEAKER) (test 28 meq/L 22-29 ypol=412) BLOOD UREA NITROGEN 8 mg/dL 7-21 (BEAKER) (test vnby=810) CREATININE (BEAKER) (test 0.56 mg/dL 0.57-1.25 pmis=646) GLUCOSE RANDOM (BEAKER) 129 mg/dL 70-105 (test tirh=307) CALCIUM (BEAKER) (test 9.2 mg/dL 8.4-10.2 boyl=270) EGFR (BEAKER) (test 147 mL/min/1.73 sq m ESTIMATED GFR IS NOT vsmm=7906) ACCURATE CREATININE CLEARANCE IN PREDICTING GLOMERULAR FILTRATION RATE. ESTIMATED GFR IS NOT APPLICABLE FOR DIALYSIS PATIENTS. CBC W/PLT COUNT & AUTO [id number] 15:40:00 Test Item Value Reference Range Comments WHITE BLOOD CELL COUNT (BEAKER) (test qpjc=379) 15.5 K/ L 3.5-10.5 RED BLOOD CELL COUNT (BEAKER) (test jtjp=772) 2.13 M/ L 3.93-5.22 HEMOGLOBIN (BEAKER) (test ksms=809) 6.8 GM/DL 11.2-15.7 HEMATOCRIT (BEAKER) (test fwft=946) 21.1 % 34.1-44.9 MEAN CORPUSCULAR VOLUME (BEAKER) (test smfp=166) 99.1 fL 79.4-94.8 MEAN CORPUSCULAR HEMOGLOBIN (BEAKER) (test 31.9 pg 25.6-32.2 ddpp=503) MEAN CORPUSCULAR HEMOGLOBIN CONC (BEAKER) (test 32.2 GM/DL 32.2-35.5 qpvs=246) RED CELL DISTRIBUTION WIDTH (BEAKER) (test 20.8 % 11.7-14.4 qrro=319) PLATELET COUNT (BEAKER) (test eqzm=920) 178 K/CU MM 150-450 MEAN PLATELET VOLUME (BEAKER) (test vjfh=477) 11.9 fL 9.4-12.3 NUCLEATED RED BLOOD CELLS (BEAKER) (test 2 /100 WBC 0-0 bmev=239) NEUTROPHILS RELATIVE PERCENT (BEAKER) (test 47 % wbgc=085) LYMPHOCYTES RELATIVE PERCENT (BEAKER) (test 34 % zocq=017) MONOCYTES RELATIVE PERCENT (BEAKER) (test 16 % ibff=836) EOSINOPHILS RELATIVE PERCENT (BEAKER) (test 3 % ivsm=845) BASOPHILS RELATIVE PERCENT (BEAKER) (test 0 % zefl=764) NEUTROPHILS ABSOLUTE COUNT (BEAKER) (test 7.20 K/ L 1.56-6.13 zuvy=387) LYMPHOCYTES ABSOLUTE COUNT (BEAKER) (test 5.22 K/ L 1.18-3.74 fpwm=890) MONOCYTES ABSOLUTE COUNT (BEAKER) (test 2.50 K/ L 0.24-0.36 bxdu=537) EOSINOPHILS ABSOLUTE COUNT (BEAKER) (test 0.48 K/ L 0.04-0.36 cszk=816) BASOPHILS ABSOLUTE COUNT (BEAKER) (test 0.02 K/ L 0.01-0.08 tpii=992) IMMATURE GRANULOCYTES-RELATIVE PERCENT (BEAKER) 1 % 0-1 (test oqzv=3036) (MANUAL DIFFERENTIAL)2017-05-28 15:40:00 Test Item Value Reference Range Comments TOTAL COUNTED (BEAKER) (test jqmk=0489) WBC MORPHOLOGY (BEAKER) (test iaed=972) Normal PLT MORPHOLOGY (BEAKER) (test mnma=507) Normal ANISOCYTOSIS (BEAKER) (test qhxp=928) 2+ moderate POLYCHROMATOPHILLIC RBCS(BEAKER) (test juix=971) 2+ moderate SICKLE CELLS (BEAKER) (test ubgs=351) 1+ few TARGET CELLS (BEAKER) (test hueh=535) 2+ moderate URINALYSIS W/ [id number] 15:13:00 Test Item Value Reference Range Comments COLOR (BEAKER) (test biwy=754) Yellow CLARITY (BEAKER) (test cgal=423) Clear SPECIFIC GRAVITY UA (BEAKER) (test sinh=553) 1.008 1.001-1.035 PH UA (BEAKER) (test sows=088) 6.0 5.0-8.0 PROTEIN UA (BEAKER) (test styg=790) Negative Negative GLUCOSE UA (BEAKER) (test dzkl=039) Negative Negative KETONES UA (BEAKER) (test bclq=473) Negative Negative BILIRUBIN UA (BEAKER) (test cnup=429) Negative Negative BLOOD UA (BEAKER) (test sdad=503) Negative Negative NITRITE UA (BEAKER) (test djch=677) Negative Negative LEUKOCYTE ESTERASE UA (BEAKER) (test vtez=752) Negative Negative UROBILINOGEN UA (BEAKER) (test wklz=601) 0.2 mg/dL 0.2-1.0 RBC UA (BEAKER) (test rcfd=867) < /HPF WBC UA (BEAKER) (test umdd=238) 2 /HPF MUCUS (BEAKER) (test zmkd=4350) Rare SQUAMOUS EPITHELIAL (BEAKER) (test xphc=932) 5 /HPF SOURCE(BEAKER) (test qbsf=6555) Urine, Voided BASIC METABOLIC [id number] 06:26:00 Test Item Value Reference Range Comments SODIUM (BEAKER) (test 139 meq/L 136-145 ecmf=413) POTASSIUM (BEAKER) (test 3.8 meq/L 3.5-5.1 jgdo=738) CHLORIDE (BEAKER) (test 104 meq/L 98-107 cftq=647) CO2 (BEAKER) (test 30 meq/L 22-29 apxk=155) BLOOD UREA NITROGEN 6 mg/dL 7-21 (BEAKER) (test xvcz=916) CREATININE (BEAKER) (test 0.56 mg/dL 0.57-1.25 ngbv=771) GLUCOSE RANDOM (BEAKER) 102 mg/dL 70-105 (test qaoo=606) CALCIUM (BEAKER) (test 9.0 mg/dL 8.4-10.2 moao=256) EGFR (BEAKER) (test 147 mL/min/1.73 sq m ESTIMATED GFR IS NOT drns=9151) ACCURATE CREATININE CLEARANCE IN PREDICTING GLOMERULAR FILTRATION RATE. ESTIMATED GFR IS NOT APPLICABLE FOR DIALYSIS PATIENTS.
--- NOTE | 2017-12-01 03:16 | EDPHYS ---
Physician Documentation [facility] Name: Brennon Berg Age: 37 yrs Sex: Female : 1980 Arrival Date: 12/01/2017 Time: :25 Bed 7 Private MD: ED Physician Sai Cano HPI: 12/01 02:40 This 37 yrs old Black Female presents to ER via Ambulatory with complaints of Fall ma2 Injury, Foot Pain. 02:40 Details of fall: The patient fell from an upright position, while walking. Onset: The ma2 symptoms/episode began/occurred suddenly, 1 hour(s) ago. Associated injuries: The patient sustained no obvious injury. Severity of symptoms: At their worst the symptoms were severe. The patient has not experienced similar symptoms in the past. was walking and tripped and twisted ankle . 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 - Irregular menses bp Historical: - Allergies: 01:47 Fentanyl; bp 01:47 Morphine; bp 01:47 Reglan; bp 01:47 Stadol; bp 01:47 Toradol; bp 01:47 tramadol; bp 01:47 Trazodone; bp 01:47 Ultram; bp 01:47 Zofran; bp - Home Meds: 01:47 gabapentin 300 mg Oral cap 1 cap 3 times per day [Active]; Hydrea 500 mg Oral cap TID bp [Active]; hydrocodone-acetaminophen 2.5-500 mg Oral tab 1 tab every 4 hours [Active]; hydroxyurea 500 mg Oral cap 1 cap every 3 days [Active]; Keppra 250 mg Oral tab 1 tabs 2 times per day [Active]; Promethazine Oral [Active]; Xanax 2 mg Oral tab 3 times per day [Active]; - PMHx: 01:47 aplastic anemia; CVA; Myocardial infarction; Seizures; Sickle Cell; bp - Immunization history:: Adult Immunizations up to date. - Social history:: Smoking status: Patient uses tobacco products, unknown amount. - Family history:: not pertinent. ROS: 02:40 Constitutional: Negative for fever, chills, and weight loss. ma2 02:40 MS/extremity: Positive for swelling, tenderness. 02:40 All other systems are negative. Exam: 02:40 Constitutional: This is a well developed, well nourished patient who is awake, alert, ma2 and in no acute distress. Head/Face: Normocephalic, atraumatic. Chest/axilla: Normal chest wall appearance and motion. Nontender with no deformity. No lesions are appreciated. Cardiovascular: Regular rate and rhythm with a normal S1 and S2. No gallops, murmurs, or rubs. Normal PMI, no JVD. No pulse deficits. Neuro: Awake and alert, GCS 15, oriented to person, place, time, and situation. Cranial nerves II-XII grossly intact. Motor strength 5/5 in all extremities. Sensory grossly intact. Cerebellar exam normal. Normal gait. Psych: Awake, alert, with orientation to person, place and time. Behavior, mood, and affect are within normal limits. 02:40 Musculoskeletal/extremity: Extremities: ROM: limited passive range of motion, Circulation is intact in all extremities. Sensation intact. Compartment Syndrome exam of affected extremity: is normal. Vital Signs: 01:47 Weight 69.85 kg; Height 5 ft. 3 in. (160.02 cm); bp 01:48 BP 145 / 100; Pulse 101; Resp 20; Temp 98.9; Pulse Ox 97% on R/A; oe 03:39 BP 134 / 97; Pulse 88; Resp 18; Pulse Ox 100% on R/A; lp1 01:47 Body Mass Index 27.28 (69.85 kg, 160.02 cm) bp MDM: 01:30 Patient medically screened. ma2 02:40 Differential diagnosis: contusion, fracture, laceration, sprain, strain. Data reviewed: ma2 vital signs, nurses notes, radiologic studies. Counseling: I had a detailed discussion with the patient and/or guardian regarding: the historical points, exam findings, and any diagnostic results supporting the discharge/admit diagnosis, radiology results, the need for outpatient follow up. 03:13 Counseling: I had a detailed discussion with the patient and/or guardian regarding: no ma2 weight bearing . 12/01 01:56 Order name: Foot Left 3 View XRAY ma2 12/01 01:56 Order name: Ankle Left 3 View XRAY ma2 12/01 03:17 Order name: [facility] [place]. Order: please give boot left ; Complete Time: 03:42 ma2 Administered Medications: No medications were administered Disposition: 12/01/17 03:15 Discharged to Home. Impression: Displaced fracture of fifth metatarsal bone, left foot. - Condition is Stable. - Discharge Instructions: Avulsion Fracture of the Foot. - Medication Reconciliation Form, Thank You Letter, Antibiotic Education, Prescription Opioid Use form. - Follow up: Private Physician; When: 1 - 2 days; Reason: Continuance of care. - Problem is new. - Symptoms are unchanged. - Notes: no weight bearing on left foot Signatures: Dispatcher [employer] EDTianna Steele RN RN lp1 Kasi Valdovinos RN RN Sai Cano MD MD ma2 Corrections: (The following items were deleted from the chart) 03:42 03:17 Crutches ordered. ma2 lp1
--- NOTE | 2017-12-01 03:16 | ER ---
Nurse's Notes [facility] Name: Brennon Berg Age: 37 yrs Sex: Female : 1980 Arrival Date: 12/01/2017 Time: 01:25 Bed 7 Private MD: Diagnosis: Displaced fracture of fifth metatarsal bone, left foot Presentation: 12/01 01:44 Presenting complaint: Patient states: I FELL EARLIER AT [facility] AND HURT MY LEFT FOOT bp AND IT GETTING WORSE. Transition of care: patient was not received from another setting of care. Onset of symptoms was November 30, 2017 at 15:00. Care prior to arrival: None. 01:44 Method Of Arrival: Ambulatory bp 01:44 Acuity: TEMI 4 bp Triage Assessment: 01:47 General: Appears in no apparent distress. comfortable, Behavior is calm, cooperative, bp appropriate for age. Pain: Complains of pain in left foot. EENT: No deficits noted. Neuro: Level of Consciousness is awake, alert, obeys commands, Oriented to person, place, time, situation, Appropriate for age. Cardiovascular: No deficits noted. Respiratory: Airway is patent Respiratory effort is even, unlabored, Respiratory pattern is regular, symmetrical. GI: No deficits noted. : No signs and/or symptoms were reported regarding the genitourinary system. Derm: No deficits noted. Musculoskeletal: Circulation, motion, and sensation intact. Range of motion: intact in all extremities. 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 - Irregular menses bp Historical: - Allergies: 01:47 Fentanyl; bp 01:47 Morphine; bp 01:47 Reglan; bp 01:47 Stadol; bp 01:47 Toradol; bp 01:47 tramadol; bp 01:47 Trazodone; bp 01:47 Ultram; bp 01:47 Zofran; bp - Home Meds: 01:47 gabapentin 300 mg Oral cap 1 cap 3 times per day [Active]; Hydrea 500 mg Oral cap TID bp [Active]; hydrocodone-acetaminophen 2.5-500 mg Oral tab 1 tab every 4 hours [Active]; hydroxyurea 500 mg Oral cap 1 cap every 3 days [Active]; Keppra 250 mg Oral tab 1 tabs 2 times per day [Active]; Promethazine Oral [Active]; Xanax 2 mg Oral tab 3 times per day [Active]; - PMHx: 01:47 aplastic anemia; CVA; Myocardial infarction; Seizures; Sickle Cell; bp - Immunization history:: Adult Immunizations up to date. - Social history:: Smoking status: Patient uses tobacco products, unknown amount. - Family history:: not pertinent. Screenin:50 Abuse screen: Denies threats or abuse. Denies injuries from another. Nutritional bp screening: No deficits noted. Tuberculosis screening: No symptoms or risk factors identified. Fall Risk None identified. Assessment: 01:49 General: Appears in no apparent distress. comfortable, Behavior is calm, cooperative, bp appropriate for age. Pain: Complains of pain in left foot. Neuro: Level of Consciousness is awake, alert, obeys commands, Oriented to person, place, time, situation, Appropriate for age. Cardiovascular: No deficits noted. Respiratory: Airway is patent Respiratory effort is even, unlabored, Respiratory pattern is regular, symmetrical. GI: No signs and/or symptoms were reported involving the gastrointestinal system. : No signs and/or symptoms were reported regarding the genitourinary system. EENT: No deficits noted. Derm: No deficits noted. Musculoskeletal: Circulation, motion, and sensation intact. Range of motion: intact in all extremities. 03:00 Reassessment: ALL CURRENT ORDERS COMPLETED, DISPO PENDING, PT REFUSING FURTHER VS 2/2 bp "IT GETS TOO TIGHT". Vital Signs: 01:47 Weight 69.85 kg; Height 5 ft. 3 in. (160.02 cm); bp 01:48 BP 145 / 100; Pulse 101; Resp 20; Temp 98.9; Pulse Ox 97% on R/A; oe 03:39 BP 134 / 97; Pulse 88; Resp 18; Pulse Ox 100% on R/A; lp1 01:47 Body Mass Index 27.28 (69.85 kg, 160.02 cm) bp ED Course: 01:25 Patient arrived in ED. do 01:30 Sai Cano MD is Attending Physician. ma2 01:45 Triage completed. bp 01:49 Arm band placed on. bp 01:50 Patient has correct armband on for positive identification. Bed in low position. Call bp light in reach. Side rails up X2. 02:12 X-ray completed. Portable x-ray completed in exam room. Patient tolerated procedure jw2 well. 02:14 Foot Left 3 View XRAY In Process Unspecified. EDMS 02:14 Ankle Left 3 View XRAY In Process Unspecified. EDMS 03:13 Kasi Valdovinos, RN is Primary Nurse. bp 03:39 No provider procedures requiring assistance completed. Patient did not have IV access lp1 during this emergency room visit. 03:40 Fawad wrap to left foot. Ortho shoe applied to left foot. lp1 Administered Medications: No medications were administered Outcome: 03:15 Discharge ordered by . claudia 03:40 Discharged to home ambulatory. lp1 03:40 Condition: good 03:40 Discharge instructions given to patient, Instructed on discharge instructions, follow up and referral plans. Demonstrated understanding of instructions, follow-up care. 03:42 Patient left the ED. lp1 Signatures: Dispatcher [employer] Tianna Hall, RN RN lp1 Yaz Gibbs Jenni jw2 Aden Leslie Brian, RN RN bp Sai Cano MD MD [facility]
[2017-12-01 03:48] VITALS: TEMP 98.9
[2017-12-01 03:49] VITALS: BP 134/97; O2SAT 100
--- NOTE | 2017-12-01 08:11 | RAD REPORT ---
EXAM DESCRIPTION: RAD - Ankle Left 3 View - 12/01/2017 2:15 am CLINICAL HISTORY: Foot and ankle pain, trauma COMPARISON: None. FINDINGS: No fracture, dislocation or periosteal reaction. No joint effusion seen. No joint space na rrowing. Lateral soft tissue swelling is present. Fifth metatarsal fracture changes are separately detailed. IMPRESSION: Negative left ankle for fracture or other acute finding. Please see separate left foot report.
--- NOTE | 2017-12-03 08:49 | RAD REPORT ---
EXAM DESCRIPTION: RAD - Foot Left 3 View - 12/01/2017 2:15 am CLINICAL HISTORY: Fall, foot pain. A preliminary report was provided at the time of the study. COMPARISON: None. FINDINGS: An oblique fracture is present through the lateral base fifth metatarsal. This is believed to be a fracture and not accessory ossicle or developmental variant. Correlation is needed with loca lized symptoms to the lateral midfoot. Subtle cortical irregularity and sclerotic changes are seen in the distal fifth metatarsal shaft and third metatarsal head that could be old trauma. There is some flattening or contour abnormality of th e third metatarsal head. Third metatarsal head findings are concerning for early Freiberg disease or AVN of the metatarsal head. No air or foreign body in the soft tissues. IMPRESSION: 1. Acute fracture base of the fifth metatarsal. 2. Appearance of the third metatarsal head shows evidence for trauma. Findings are concerning for dev eloping Freiberg disease or AVN.
== END 2017-12-01 03:42 | disposition home or self-care (01) ==
LOC: ER 01:18
DX: S92.352A Displaced fracture of fifth metatarsal bone, left foot, initial encounter for closed fracture (principal); G40.909 Epilepsy, unspecified, not intractable, without status epilepticus; I25.2 Old myocardial infarction; W01.0XXA Fall on same level from slipping, tripping and stumbling without subsequent striking against object, initial encounter; Y93.01 Activity, walking, marching and hiking; Y92.9 Unspecified place or not applicable; Z72.0 Tobacco use; Z88.4 Allergy status to anesthetic agent; Z88.5 Allergy status to narcotic agent; Z88.6 Allergy status to analgesic agent; Z88.8 Allergy status to other drugs, medicaments and biological substances; Z86.73 Personal history of transient ischemic attack (TIA), and cerebral infarction without residual deficits
CPT/HCPCS: 99283

== ENCOUNTER 2017-12-12 11:20 | Emergency (ER) | payer OTHER ==
--- OUTSIDE RECORDS SUMMARY | 2017-12-12 11:24 | XMS REPORT | Clinical Summary ---
:1980 Author Organization [facility] Address [address] [place] [address] Phone Care Team Providers Name Role Phone Unavailable Primary Care Provider Unavailable Allergies Active Allergy Reactions Severity Noted Date Comments Tramadol Other (See Comments) High 02/21/2014 Seizure Morphine Other (See Comments) 11/27/2013 seizures Butorphanol Tartrate Other (See Comments) 11/27/2013 seizures Svx-Ym-Lrv-Yewwjgny-Tawfg-Hwmb 10/01/2014 seizure Ketorolac Other (See Comments) 11/27/2013 [...] Pain 12/01/2013 Sickle cell anemia with crisis ([facility]) 11/30/2013 Iron overload due to repeated red [...] (HCC) (Primary Traci Obregon, RN Dx) after 12/11/2016 Family History Medical History Relation Name Comments [...] 11/22/2017 1:14 PM CDT chest pain after 12/11/2016 Results CARDIAC CATH REPORT - SCAN (11/27/2017 8:52 PM)Calcium, Ionized (11/25/2017 4: 38 AM)Only the most recent of14 resultswithin the time period is included. Component Value Ref Range Calcium, Ion 1.10 (L) 1.12 - 1.27 mmol/L pH, Blood 7.30 Specimen Performing Laboratory Blood [address] [address] Phosphorus (11/25/2017 4:38 AM)Only the most recent of15 resultswithin the time period is included. Component Value Ref Range Phosphorus 4.7 2.3 - 4.7 mg/dL Specimen Performing Laboratory Blood [address] [address] Magnesium (11/25/2017 4:38 AM)Only the most recent of16 resultswithin the time period is included. Component Value Ref Range Magnesium 1.4 (L) 1.6 - 2.6 mg/dL Specimen Performing Laboratory Blood [address] [address] Basic Metabolic Panel (11/25/2017 4:38 AM)Only the [...] FOR DIALYSIS PATIENTS. Specimen Performing Laboratory Blood [address] [address] Uric acid (11/24/2017 5:36 AM) Component Value Ref Range Uric Acid 4.8 2.6 - 7.2 mg/dL Specimen Performing Laboratory Blood [address] [address] Lactate dehydrogenase (LDH) (11/24/2017 5:36 AM) Component Value Ref Range LDH 489 (H) 125 - 220 U/L Specimen Performing Laboratory Blood [address] [address] Creatine Kinase (CK) (11/24/2017 5:36 AM) Component Value Ref Range Total CK 8 (L) 29 - 200 U/L Specimen Performing Laboratory Blood [address] [address] Potassium (11/23/2017 5:35 PM)Only the most recent of3 resultswithin the time period is included. Component Value Ref Range Potassium 5.5 (H) 3.5 - 5.1 meq/L Specimen Performing Laboratory Blood - Central Venous Line [address] [address] Narrative Call if K > 5.4 to renal [phone] CBC with platelet count + automated diff [...] 1 % Specimen Performing Laboratory Blood [facility] [address] [place] [address] CBC with platelet count + automated diff (11/23/2017 4:50 AM)Only the most recent of26 resultswithin the time period is included. Specimen Performing Laboratory Blood Narrative The following orders were created for panel order CBC with platelet count + automated diff. Procedure Abnormality Status --------- ------ CBC with platelet count ...[[id number]]AbnormalFinal result Please view results for these tests on the individual orders. Electrolytes (11/22/2017 12:30 PM) Component Value Ref Range Sodium 137 136 - 145 meq/L Potassium 5.4 (H) 3.5 - 5.1 meq/L Chloride 100 98 - 107 meq/L CO2 30 (H) 22 - 29 meq/L Specimen Performing Laboratory Blood [address] [address] Narrative Call results [id number] B-type Natriuretic Factor (BNP) (11/21/2017 4:56 AM)Only the most recent of3 resultswithin the time period is included. Component Value Ref Range BNP 120 (H) 0 - 100 pg/mL Specimen Performing Laboratory Blood [address] [address] Blood gas, venous (11/20/2017 6:44 AM) Component [...] FIO2 21.0 % Specimen Performing Laboratory Blood [address] [address] Ferritin (11/19/2017 9:46 AM) Component Value Ref Range Ferritin [address] (H) 5 - 275 ng/mL Specimen Performing Laboratory [address] [address] CBC (Hemogram only) (11/19/2017 6:25 AM) Component [...] Performing Laboratory Blood - Central Venous Line [address] [address] TRANSFUSION SERVICE REPORT - SCAN (11/17/2017 5:40 [...] Performing Laboratory Blood - Central Venous Line [address] [address] Prepare RBC (11/16/2017 11:55 PM) Component Value Ref Range Unit ABO O Pos UNIT NUMBER [id number] Status TRANSFUSED Blood Bank Product RED BLOOD CELLS PRODUCT CODE S1806Y72 Unit ABO O Pos UNIT NUMBER [id number] Status TRANSFUSED Blood Bank Product RED BLOOD CELLS PRODUCT CODE T3980L42 CROSSMATCH COMPATIBLE CROSSMATCH COMPATIBLE Specimen Performing Laboratory [...] MD Report Verified Date/Time:11/16/2017 10:47:19 Reading Location: [facility] Radiology Reading Room Procedure Note Interface, [...] Report Verified Date/Time: 11/16/2017 10:47:19 Reading Location: [facility] Radiology Reading Room mandible less than [...] MD Report Verified Date/Time:11/16/2017 12:28:43 Reading Location: [facility] Radiology Reading Room Procedure Note Interface, [...] Blood - Central Venous Line [facility] [address] [address] Actin (Smooth Muscle) Antibody, IgG (11/16/2017 9:35 [...] - Central Venous Line [facility] [address] [address] Narrative Performing Lab [facility] [address] [address] Irwin Marquez MD, PhD AMARILYS Titer & Pattern (11/16/2017 9:35 AM) Component Value Ref Range AMARILYS Titer 1:160 AMARILYS Pattern Multiple nuclear dots pattern Specimen Performing Laboratory Blood - Central Venous Line [address] [address] Hepatitis panel, acute (11/16/2017 9:35 AM) Component Value Ref Range Hep A IgM Nonreactive Nonreactive Hep B C IgM Nonreactive Nonreactive Hepatitis C Ab Nonreactive Nonreactive hepatitis B Surface Ag Nonreactive Nonreactive Specimen Performing Laboratory Blood - Central Venous Line [address] [address] Anti-Nuclear Antibody (AMARILYS) (11/16/2017 9:35 AM) Component Value Ref Range AMARILYS Positive (A) Negative Specimen Performing Laboratory Blood - Central Venous Line [address] [address] Manual Differential (11/16/2017 4:23 AM)Only the most recent of16 resultswithin the time period is included. Component Value Ref Range Total Counted WBC Morphology Normal Platelet Morphology Normal Polychromasia 1+ few Sickle Cells 1+ few Target Cells 2+ moderate Specimen Performing Laboratory Blood - Central Venous Line [address] [address] Transfuse Leuko-Red RBC (11/15/2017 11:12 PM)Only the most recent of10 resultswithin the time period is included.Urinalysis w/Microscopic (11/15/2017 6:45 PM)Only the most recent of4 resultswithin the time period is included. Component Value Ref Range Color, UA Yellow Clarity, UA Clear Specific [place], UA 1.006 1.001 - 1.035 pH, UA [...] Specimen Performing Laboratory Urine - Urine, Voided [address] [address] Prepare Leuko-Red RBC (11/15/2017 1:30 PM)Only the most recent of7 resultswithin the time period is included. Component Value Ref Range Unit ABO O Pos UNIT NUMBER [id number] Status WORK IN PROGRESS Blood Bank Product RED BLOOD CELLS PRODUCT CODE N8115V38 Unit ABO O Pos UNIT NUMBER [id number] Status CANCELED Blood Bank Product RED BLOOD CELLS PRODUCT CODE [id number] Specimen Performing Laboratory Other [place] XR [...] MD Report Verified Date/Time:11/15/2017 12:43:04 Reading Location: [facility] Radiology Reading Room Procedure Note Interface, [...] Report Verified Date/Time: 11/15/2017 12:43:04 Reading Location: [facility] Radiology Reading Room Antibody identification (11/15/2017 [...] Scrn POSITIVE Specimen Performing Laboratory Blood [facility] [address] [place] [address] [place] Endovaginal (11/15/2017 7:00 AM) Specimen Performing [...] MD Report Verified Date/Time:11/15/2017 09:03:15 Reading Location: [address] Ultrasound Reading Room Procedure Note Interface, [...] Report Verified Date/Time: 11/15/2017 09:03:15 Reading Location: [address] Ultrasound Reading Room Lipase (11/15/2017 5:30 AM) Component Value Ref Range Lipase 95 (H) 8 - 78 U/L Specimen Performing Laboratory Blood - Central Venous Line [address] [address] Urine culture (11/14/2017 6:19 AM)Only the most recent of2 resultswithin the time period is included. Component Value Ref Range Result >100,000 col/mL skin valentino Specimen Performing Laboratory Urine - Urine, Clean Catch [address] [address] Blood culture (11/13/2017 11:20 PM)Only the most recent of2 resultswithin the time period is included. Component Value Ref Range Result No growth in 5 days Specimen Performing Laboratory Blood - Portacath [address] [address] ECHOCARDIOGRAM REPORT - SCAN (11/10/2017 1:20 PM)Comprehensive [...] Performing Laboratory Blood - Central Venous Line [address] [address] 2D Echo W/Doppler(CW/PW/Color) (11/09/2017 6:46 PM) Component Value Ref Range Ejection Fraction Specimen Performing Laboratory [facility] MKCKESSON CPACS Narrative Transthoracic Echocardiography Report (TTE) Demographics Patient NameSGATITO, RODRIGODate of Study11/09/2017 DIANA Gender Female Visit [id number] Race Black [id number] Number Date of 1980 [facility] Physician 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 37 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 [facility] Needs to [...] Study 11/09/2017 DIANA Gender Female Visit Number [id number] Race Black Room Number [id number] Number Date of 1980 Referring Neal Lezama Physician Age 37 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 [facility] Needs to [...] bedside (11/08/2017 7:20 PM) Specimen Performing Laboratory [facility] Narrative FINAL REPORT EXAMINATION:AP PORTABLE CHEST RADIOGRAPH [...] MD Report Verified Date/Time:11/08/2017 20:41:24 Reading Location: [address] Reading Room Procedure Note Interface, External [...] Report Verified Date/Time: 11/08/2017 20:41:24 Reading Location: [address] Reading Room Sodium, random urine (11/08/2017 5:33 AM) Component Value Ref Range Sodium Urine 65 meq/L Specimen Performing Laboratory Urine - Urine, Voided [address] [address] Narrative Reference Range: No Normals Protein, random urine (11/08/2017 5:33 AM) Component Value Ref Range Protein, Urine 24 (H) 0 - 14 mg/dL Specimen Performing Laboratory Urine - Urine, Voided [address] [address] Creatinine, random urine (11/08/2017 5:33 AM) Component Value Ref Range Creatinine, Ur 46.0 mg/dL Specimen Performing Laboratory Urine - Urine, Voided [address] [address] Narrative Reference Range: No Normals Eosinophil smear (11/08/2017 5:33 AM) Component Value Ref Range Eosinophil Smear No EOS seen No EOS seen Specimen Performing Laboratory Urine - Urine, Voided [address] [address] [address] abdomen/pelvis without iv contrast (11/08/2017 3:01 [...] MD Report Verified Date/Time:11/08/2017 08:29:54 Reading Location: [facility] Diagnostic Imaging Reading Room - [place] [address] Procedure Note Interface, External Ris In - [...] Report Verified Date/Time: 11/08/2017 08:29:54 Reading Location: [facility] Diagnostic Imaging Reading Room - [facility] F1 1120 abdomen complete (11/07/2017 7:27 PM)Only [...] MD Report Verified Date/Time:11/07/2017 19:58:17 Reading Location: [facility] [id number] Consult Reading Room Procedure Note Interface, [...] Report Verified Date/Time: 11/07/2017 19:58:17 Reading Location: [facility] [id number] Consult Reading Room Lactic acid, venous, whole blood (11/07/2017 3:32 PM) Component Value Ref Range Lactate, Venous 0.9Comment: Specimen slightly hemolyzed 0.5 - 2.2 mmol/L Specimen Performing Laboratory Blood [place] [address] Narrative Effective 12/22/2015: Units/Reference Range Change New: 0.5-2.2 mmol/LPrevious: 5-20 mg/dL EKG-SCANNED (06/11/2017 10:10 AM)ECG 12 lead (06/05/2017 8:52 PM) Specimen Performing Laboratory [facility] Narrative Ventricular Rate 80 BPM Atrial Rate 80 BPM P-R Interval 180 ms QRS Duration 76 ms Q-T Interval 394 ms QTC Calculation(Bazett) 454 ms P [place] 49 degrees R [place] 20 degrees T [place] 34 degrees Normal sinus rhythm Normal ECG [...] 394 ms QTC Calculation(Bazett) 454 ms P [place] 49 degrees R [place] 20 degrees T [place] 34 degrees Normal sinus rhythm Normal ECG When compared with ECG of 15-SEP-2016 00:53, No significant change was found Confirmed by Wade GARCIA BASANT ([id number]) on 06/07/2017 1:13:44 PM Troponin I (06/05/2017 8:40 PM) Component Value Ref Range Troponin I <0.01 0.00 - 0.03 ng/mL Specimen Performing Laboratory Blood - Central Venous Line [facility] [address] Narrative Troponin I (TnI) levels must be [...] Laboratory Blood - Central Venous Line [facility] [address] [address] Narrative CK-MB Reference Range: <6.7Normal 6.7-10.0Borderline >10.0 Abnormal after 12/11/2016
--- OUTSIDE RECORDS SUMMARY | 2017-12-12 11:27 | XMS REPORT ---
:1980 Author Organization [facility] Address [address] [place] [address] [address] [place] [address] Care Team Providers Name Role Phone TALISHA [...] Value Reference Range Comments SCAN RESULT (test bwis=[id number]) CALCIUM, [id number] 07:05:00 Test Item Value Reference Range Comments CALCIUM IONIZED (BEAKER) (test arzw=781) 1.10 mmol/L 1.12-1.27 PH, BLOOD (BEAKER) (test nxii=1041) 7.30 [id number] 06:22:00 Test Item Value Reference Range Comments PHOSPHORUS (BEAKER) (test otxe=281) 4.7 mg/dL 2.3-4.7 [id number] 06:22:00 Test Item Value Reference Range Comments MAGNESIUM (BEAKER) (test kouw=485) 1.4 mg/dL 1.6-2.6 BASIC METABOLIC [id number] 06:22:00 Test Item Value Reference Range Comments SODIUM (BEAKER) (test 135 meq/L 136-145 rxjv=242) POTASSIUM (BEAKER) (test 4.5 meq/L 3.5-5.1 lltn=550) CHLORIDE (BEAKER) (test 100 meq/L 98-107 ffsg=794) CO2 (BEAKER) (test 29 meq/L 22-29 fvti=609) BLOOD UREA NITROGEN 19 mg/dL 7-21 (BEAKER) (test yxzw=054) CREATININE (BEAKER) (test 0.76 mg/dL 0.57-1.25 kldi=491) GLUCOSE RANDOM (BEAKER) 104 mg/dL 70-105 (test vhxg=767) CALCIUM (BEAKER) (test 9.3 mg/dL 8.4-10.2 ardh=482) EGFR (BEAKER) (test 103 mL/min/1.73 sq m ESTIMATED GFR IS NOT bbcu=5761) ACCURATE CREATININE CLEARANCE IN PREDICTING GLOMERULAR FILTRATION RATE. ESTIMATED GFR IS NOT APPLICABLE FOR DIALYSIS PATIENTS. CREATINE KINASE (CK)2017-11-24 08:12:00 Test Item Value Reference Range Comments CREATINE KINASE TOTAL (BEAKER) (test abkm=705) 8 U/L 29-200 URIC [id number] 08:01:00 Test Item Value Reference Range Comments URIC ACID (BEAKER) (test ngre=808) 4.8 mg/dL 2.6-7.2 [id number] 08:01:00 Test Item Value Reference Range Comments MAGNESIUM (BEAKER) (test uebq=528) 1.5 mg/dL 1.6-2.6 [id number] 08:01:00 Test Item Value Reference Range Comments PHOSPHORUS (BEAKER) (test stuo=274) 5.3 mg/dL 2.3-4.7 BASIC METABOLIC [id number] 08:01:00 Test Item Value Reference Range Comments SODIUM (BEAKER) (test 138 meq/L 136-145 cgqq=426) POTASSIUM (BEAKER) (test 4.9 meq/L 3.5-5.1 siiz=313) CHLORIDE (BEAKER) (test 100 meq/L 98-107 hxza=533) CO2 (BEAKER) (test 28 meq/L 22-29 ixax=719) BLOOD UREA NITROGEN 22 mg/dL 7-21 (BEAKER) (test wshs=300) CREATININE (BEAKER) (test 0.80 mg/dL 0.57-1.25 gebn=281) GLUCOSE RANDOM (BEAKER) 102 mg/dL 70-105 (test ivgl=625) CALCIUM (BEAKER) (test 9.3 mg/dL 8.4-10.2 tdaw=507) EGFR (BEAKER) (test 97 mL/min/1.73 sq m ESTIMATED GFR IS NOT ylrg=1711) ACCURATE CREATININE CLEARANCE IN PREDICTING GLOMERULAR FILTRATION RATE. ESTIMATED GFR IS NOT APPLICABLE FOR DIALYSIS PATIENTS. LACTATE DEHYDROGENASE (LDH)2017-11-24 08:01:00 Test Item Value Reference Range Comments LACTATE DEHYDROGENASE (BEAKER) (test hayd=759) 489 U/L 125-220 [id number] 18:07:00 Test Item Value Reference Range Comments POTASSIUM (BEAKER) (test rxfz=611) 5.5 meq/L 3.5-5.1 Call if K > 5.4 to renal [id number] [id number] 1032CALCIUM, [id number] 06:51:00 Test Item Value Reference Range Comments CALCIUM IONIZED (BEAKER) (test qmrc=534) 1.08 mmol/L 1.12-1.27 PH, BLOOD (BEAKER) (test nbmn=6179) 7.35 CBC W/PLT COUNT & AUTO [id number] 06:25:00 Test Item Value Reference Range Comments WHITE BLOOD CELL COUNT (BEAKER) (test wkjb=790) 18.3 K/ L 3.5-10.5 RED BLOOD CELL COUNT (BEAKER) (test zvzu=716) 2.30 M/ L 3.93-5.22 HEMOGLOBIN (BEAKER) (test sabr=150) 6.5 GM/DL 11.2-15.7 HEMATOCRIT (BEAKER) (test xoeb=622) 21.1 % 34.1-44.9 MEAN CORPUSCULAR VOLUME (BEAKER) (test sztg=771) 91.7 fL 79.4-94.8 MEAN CORPUSCULAR HEMOGLOBIN (BEAKER) (test 28.3 pg 25.6-32.2 evii=066) MEAN CORPUSCULAR HEMOGLOBIN CONC (BEAKER) (test 30.8 GM/DL 32.2-35.5 limb=506) RED CELL DISTRIBUTION WIDTH (BEAKER) (test 21.2 % 11.7-14.4 mruc=091) PLATELET COUNT (BEAKER) (test lhwm=009) 414 K/CU MM 150-450 MEAN PLATELET VOLUME (BEAKER) (test quly=088) 11.5 fL 9.4-12.3 NUCLEATED RED BLOOD CELLS (BEAKER) (test 0 /100 WBC 0-0 qddg=486) NEUTROPHILS RELATIVE PERCENT (BEAKER) (test 53 % corg=066) LYMPHOCYTES RELATIVE PERCENT (BEAKER) (test 25 % uwri=416) MONOCYTES RELATIVE PERCENT (BEAKER) (test 19 % szhk=936) EOSINOPHILS RELATIVE PERCENT (BEAKER) (test 2 % gdib=024) BASOPHILS RELATIVE PERCENT (BEAKER) (test 0 % aqhy=173) NEUTROPHILS ABSOLUTE COUNT (BEAKER) (test 9.74 K/ L 1.56-6.13 myju=004) LYMPHOCYTES ABSOLUTE COUNT (BEAKER) (test 4.57 K/ L 1.18-3.74 gpvw=099) MONOCYTES ABSOLUTE COUNT (BEAKER) (test 3.51 K/ L 0.24-0.36 azbf=300) EOSINOPHILS ABSOLUTE COUNT (BEAKER) (test 0.29 K/ L 0.04-0.36 jwjp=005) BASOPHILS ABSOLUTE COUNT (BEAKER) (test 0.07 K/ L 0.01-0.08 zpra=046) IMMATURE GRANULOCYTES-RELATIVE PERCENT (BEAKER) 1 % 0-1 (test bqxe=3682) [id number] 05:35:00 Test Item Value Reference Range Comments PHOSPHORUS (BEAKER) (test hmrf=062) 4.4 mg/dL 2.3-4.7 [id number] 05:35:00 Test Item Value Reference Range Comments MAGNESIUM (BEAKER) (test lbyh=353) 1.3 mg/dL 1.6-2.6 BASIC METABOLIC [id number] 05:35:00 Test Item Value Reference Range Comments SODIUM (BEAKER) (test 136 meq/L 136-145 frtm=291) POTASSIUM (BEAKER) (test 5.4 meq/L 3.5-5.1 buft=451) CHLORIDE (BEAKER) (test 97 meq/L 98-107 vuje=030) CO2 (BEAKER) (test 31 meq/L 22-29 fjid=127) BLOOD UREA NITROGEN 20 mg/dL 7-21 (BEAKER) (test mkuz=494) CREATININE (BEAKER) (test 0.75 mg/dL 0.57-1.25 ecxr=417) GLUCOSE RANDOM (BEAKER) 81 mg/dL 70-105 (test lpul=624) CALCIUM (BEAKER) (test 9.5 mg/dL 8.4-10.2 zvzk=720) EGFR (BEAKER) (test 105 mL/min/1.73 sq m ESTIMATED GFR IS NOT onji=9094) ACCURATE CREATININE CLEARANCE IN PREDICTING GLOMERULAR FILTRATION RATE. ESTIMATED GFR IS NOT APPLICABLE FOR DIALYSIS PATIENTS. [id number] 16:19:00 Test Item Value Reference Range Comments POTASSIUM (BEAKER) (test oepz=850) 5.2 meq/L 3.5-5.1 Repeat after 3 hours kayexalate was given; call result [id number] 12:53:00 Test Item Value Reference Range Comments SODIUM (BEAKER) (test zpvr=327) 137 meq/L 136-145 POTASSIUM (BEAKER) (test zpzi=236) 5.4 meq/L 3.5-5.1 CHLORIDE (BEAKER) (test anbc=117) 100 meq/L 98-107 CO2 (BEAKER) (test bvbu=312) 30 meq/L 22-29 Call results [id number] 11:14:00 Test Item Value Reference Range Comments POTASSIUM (BEAKER) (test vxxa=431) 5.8 meq/L 3.5-5.1 [id number] 06:40:00 Test Item Value Reference Range Comments PHOSPHORUS (BEAKER) (test dikg=890) 5.4 mg/dL 2.3-4.7 [id number] 06:40:00 Test Item Value Reference Range Comments MAGNESIUM (BEAKER) (test ezmd=739) 1.6 mg/dL 1.6-2.6 CALCIUM, [id number] 06:27:00 Test Item Value Reference Range Comments CALCIUM IONIZED (BEAKER) (test imxv=026) 0.99 mmol/L 1.12-1.27 PH, BLOOD (BEAKER) (test ovam=3046) 7.43 CBC W/PLT COUNT & AUTO [id number] 05:53:00 Test Item Value Reference Range Comments WHITE BLOOD CELL COUNT (BEAKER) (test misl=483) 16.2 K/ L 3.5-10.5 RED BLOOD CELL COUNT (BEAKER) (test ofvx=556) 2.38 M/ L 3.93-5.22 HEMOGLOBIN (BEAKER) (test serf=101) 7.0 GM/DL 11.2-15.7 HEMATOCRIT (BEAKER) (test neci=687) 22.2 % 34.1-44.9 MEAN CORPUSCULAR VOLUME (BEAKER) (test qjun=817) 93.3 fL 79.4-94.8 MEAN CORPUSCULAR HEMOGLOBIN (BEAKER) (test 29.4 pg 25.6-32.2 gcrs=024) MEAN CORPUSCULAR HEMOGLOBIN CONC (BEAKER) (test 31.5 GM/DL 32.2-35.5 lgjd=084) RED CELL DISTRIBUTION WIDTH (BEAKER) (test 21.3 % 11.7-14.4 etnc=419) PLATELET COUNT (BEAKER) (test lrjy=095) 390 K/CU MM 150-450 MEAN PLATELET VOLUME (BEAKER) (test yrhm=451) 11.8 fL 9.4-12.3 NUCLEATED RED BLOOD CELLS (BEAKER) (test 0 /100 WBC 0-0 vvqb=112) NEUTROPHILS RELATIVE PERCENT (BEAKER) (test 58 % fnsl=068) LYMPHOCYTES RELATIVE PERCENT (BEAKER) (test 23 % ioiz=404) MONOCYTES RELATIVE PERCENT (BEAKER) (test 17 % udxf=564) EOSINOPHILS RELATIVE PERCENT (BEAKER) (test 2 % tivg=273) BASOPHILS RELATIVE PERCENT (BEAKER) (test 0 % rzux=104) NEUTROPHILS ABSOLUTE COUNT (BEAKER) (test 9.31 K/ L 1.56-6.13 ydqv=105) LYMPHOCYTES ABSOLUTE COUNT (BEAKER) (test 3.65 K/ L 1.18-3.74 jtvh=918) MONOCYTES ABSOLUTE COUNT (BEAKER) (test 2.70 K/ L 0.24-0.36 ztqn=122) EOSINOPHILS ABSOLUTE COUNT (BEAKER) (test 0.36 K/ L 0.04-0.36 wsbb=559) BASOPHILS ABSOLUTE COUNT (BEAKER) (test 0.04 K/ L 0.01-0.08 rjdp=826) IMMATURE GRANULOCYTES-RELATIVE PERCENT (BEAKER) 1 % 0-1 (test azvx=6158) BASIC METABOLIC [id number] 17:35:00 Test Item Value Reference Range Comments SODIUM (BEAKER) (test 133 meq/L 136-145 mrta=790) POTASSIUM (BEAKER) (test 5.4 meq/L 3.5-5.1 axot=473) CHLORIDE (BEAKER) (test 99 meq/L 98-107 tflt=415) CO2 (BEAKER) (test 26 meq/L 22-29 fhnb=030) BLOOD UREA NITROGEN 23 mg/dL 7-21 (BEAKER) (test vmpb=964) CREATININE (BEAKER) (test 0.83 mg/dL 0.57-1.25 dekg=417) GLUCOSE RANDOM (BEAKER) 94 mg/dL 70-105 (test btmb=960) CALCIUM (BEAKER) (test 9.2 mg/dL 8.4-10.2 ddgi=585) EGFR (BEAKER) (test 93 mL/min/1.73 sq m ESTIMATED GFR IS NOT xgtc=1782) ACCURATE CREATININE CLEARANCE IN PREDICTING GLOMERULAR FILTRATION RATE. ESTIMATED GFR IS NOT APPLICABLE FOR DIALYSIS PATIENTS. [id number] 06:33:00 Test Item Value Reference Range Comments PHOSPHORUS (BEAKER) (test qarb=454) 5.3 mg/dL 2.3-4.7 [id number] 06:33:00 Test Item Value Reference Range Comments MAGNESIUM (BEAKER) (test doyy=700) 1.6 mg/dL 1.6-2.6 BASIC METABOLIC [id number] 06:33:00 Test Item Value Reference Range Comments SODIUM (BEAKER) (test 133 meq/L 136-145 kfab=121) POTASSIUM (BEAKER) (test 5.2 meq/L 3.5-5.1 gdjo=239) CHLORIDE (BEAKER) (test 97 meq/L 98-107 orsr=195) CO2 (BEAKER) (test 29 meq/L 22-29 tslp=089) BLOOD UREA NITROGEN 23 mg/dL 7-21 (BEAKER) (test xidd=822) CREATININE (BEAKER) (test 0.77 mg/dL 0.57-1.25 wdze=763) GLUCOSE RANDOM (BEAKER) 92 mg/dL 70-105 (test mwem=880) CALCIUM (BEAKER) (test 9.4 mg/dL 8.4-10.2 voaa=582) EGFR (BEAKER) (test 102 mL/min/1.73 sq m ESTIMATED GFR IS NOT wofh=5135) ACCURATE CREATININE CLEARANCE IN PREDICTING GLOMERULAR FILTRATION RATE. ESTIMATED GFR IS NOT APPLICABLE FOR DIALYSIS PATIENTS. CALCIUM, [id number] 06:22:00 Test Item Value Reference Range Comments CALCIUM IONIZED (BEAKER) (test lzdx=228) 1.18 mmol/L 1.12-1.27 PH, BLOOD (BEAKER) (test ghew=2714) 7.32 B-TYPE NATRIURETIC FACTOR (BNP)2017-11-21 06:19:00 Test Item Value Reference Range Comments B-TYPE NATRIURETIC PEPTIDE (BEAKER) (test 120 pg/mL 0-100 ukam=438) CBC W/PLT COUNT & AUTO [id number] 05:59:00 Test Item Value Reference Range Comments WHITE BLOOD CELL COUNT (BEAKER) (test wyck=379) 17.4 K/ L 3.5-10.5 RED BLOOD CELL COUNT (BEAKER) (test hdbu=628) 2.32 M/ L 3.93-5.22 HEMOGLOBIN (BEAKER) (test aepe=037) 6.7 GM/DL 11.2-15.7 HEMATOCRIT (BEAKER) (test zgbu=249) 21.6 % 34.1-44.9 MEAN CORPUSCULAR VOLUME (BEAKER) (test qewl=568) 93.1 fL 79.4-94.8 MEAN CORPUSCULAR HEMOGLOBIN (BEAKER) (test 28.9 pg 25.6-32.2 kkkb=462) MEAN CORPUSCULAR HEMOGLOBIN CONC (BEAKER) (test 31.0 GM/DL 32.2-35.5 hybu=617) RED CELL DISTRIBUTION WIDTH (BEAKER) (test 20.9 % 11.7-14.4 wqiv=094) PLATELET COUNT (BEAKER) (test khnt=808) 367 K/CU MM 150-450 MEAN PLATELET VOLUME (BEAKER) (test ppzl=986) 12.1 fL 9.4-12.3 NUCLEATED RED BLOOD CELLS (BEAKER) (test 0 /100 WBC 0-0 bbuj=180) NEUTROPHILS RELATIVE PERCENT (BEAKER) (test 58 % iplw=302) LYMPHOCYTES RELATIVE PERCENT (BEAKER) (test 23 % yotm=518) MONOCYTES RELATIVE PERCENT (BEAKER) (test 16 % bvts=098) EOSINOPHILS RELATIVE PERCENT (BEAKER) (test 3 % csim=526) BASOPHILS RELATIVE PERCENT (BEAKER) (test 1 % ogfs=909) NEUTROPHILS ABSOLUTE COUNT (BEAKER) (test 10.09 K/ L 1.56-6.13 yczx=757) LYMPHOCYTES ABSOLUTE COUNT (BEAKER) (test 3.92 K/ L 1.18-3.74 etug=192) MONOCYTES ABSOLUTE COUNT (BEAKER) (test 2.71 K/ L 0.24-0.36 obij=566) EOSINOPHILS ABSOLUTE COUNT (BEAKER) (test 0.46 K/ L 0.04-0.36 wpdo=512) BASOPHILS ABSOLUTE COUNT (BEAKER) (test 0.08 K/ L 0.01-0.08 cejt=036) IMMATURE GRANULOCYTES-RELATIVE PERCENT (BEAKER) 1 % 0-1 (test jkfa=3737) BLOOD GAS, [id number] 07:22:00 Test Item Value Reference Range Comments PH VENOUS (BEAKER) (test vois=150) 7.34 7.32-7.42 PCO2 VENOUS (BEAKER) (test ukso=588) 63 mmHg 41-51 PO2 VENOUS (BEAKER) (test sgva=787) 133 mmHg 25-40 O2 SATURATION VENOUS (BEAKER) (test aemt=200) 98.4 % 40.0-70.0 HCO3 VENOUS (BEAKER) (test kdco=095) 33 mmol/L 21-29 BASE EXCESS VENOUS (BEAKER) (test hsfx=702) 6.6 mmol/L -2.0-3.0 PATIENT TEMPERATURE (BEAKER) (test hjun=1737) 37.0 C FIO2 (BEAKER) (test beki=4606) 21.0 % CALCIUM, [id number] 07:20:00 Test Item Value Reference Range Comments CALCIUM IONIZED (BEAKER) (test wral=100) 1.10 mmol/L 1.12-1.27 PH, BLOOD (BEAKER) (test chlj=8022) 7.33 [id number] 07:18:00 Test Item Value Reference Range Comments PHOSPHORUS (BEAKER) (test bnio=852) 4.8 mg/dL 2.3-4.7 [id number] 07:18:00 Test Item Value Reference Range Comments MAGNESIUM (BEAKER) (test fgmz=266) 1.6 mg/dL 1.6-2.6 BASIC METABOLIC [id number] 07:18:00 Test Item Value Reference Range Comments SODIUM (BEAKER) (test 137 meq/L 136-145 covg=067) POTASSIUM (BEAKER) (test 4.8 meq/L 3.5-5.1 piot=925) CHLORIDE (BEAKER) (test 99 meq/L 98-107 wegm=400) CO2 (BEAKER) (test 31 meq/L 22-29 gipx=254) BLOOD UREA NITROGEN 20 mg/dL 7-21 (BEAKER) (test qdmf=617) CREATININE (BEAKER) (test 0.83 mg/dL 0.57-1.25 mfim=536) GLUCOSE RANDOM (BEAKER) 117 mg/dL 70-105 (test hhli=385) CALCIUM (BEAKER) (test 9.5 mg/dL 8.4-10.2 vnfx=591) EGFR (BEAKER) (test 93 mL/min/1.73 sq m ESTIMATED GFR IS NOT ewjq=1262) ACCURATE CREATININE CLEARANCE IN PREDICTING GLOMERULAR FILTRATION RATE. ESTIMATED GFR IS NOT APPLICABLE FOR DIALYSIS PATIENTS. CBC W/PLT COUNT & AUTO [id number] 07:14:00 Test Item Value Reference Range Comments WHITE BLOOD CELL COUNT (BEAKER) (test qxgb=085) 16.7 K/ L 3.5-10.5 RED BLOOD CELL COUNT (BEAKER) (test gwdp=051) 2.39 M/ L 3.93-5.22 HEMOGLOBIN (BEAKER) (test fxes=311) 6.9 GM/DL 11.2-15.7 HEMATOCRIT (BEAKER) (test jtwm=877) 22.3 % 34.1-44.9 MEAN CORPUSCULAR VOLUME (BEAKER) (test vcvp=590) 93.3 fL 79.4-94.8 MEAN CORPUSCULAR HEMOGLOBIN (BEAKER) (test 28.9 pg 25.6-32.2 zkan=391) MEAN CORPUSCULAR HEMOGLOBIN CONC (BEAKER) (test 30.9 GM/DL 32.2-35.5 zvwr=979) RED CELL DISTRIBUTION WIDTH (BEAKER) (test 21.1 % 11.7-14.4 fyvg=691) PLATELET COUNT (BEAKER) (test vbxp=151) 344 K/CU MM 150-450 MEAN PLATELET VOLUME (BEAKER) (test rzls=164) 11.7 fL 9.4-12.3 NUCLEATED RED BLOOD CELLS (BEAKER) (test 0 /100 WBC 0-0 gsqf=083) NEUTROPHILS RELATIVE PERCENT (BEAKER) (test 60 % wgry=067) LYMPHOCYTES RELATIVE PERCENT (BEAKER) (test 23 % vgpo=749) MONOCYTES RELATIVE PERCENT (BEAKER) (test 14 % xsbh=756) EOSINOPHILS RELATIVE PERCENT (BEAKER) (test 3 % zdoe=521) BASOPHILS RELATIVE PERCENT (BEAKER) (test 0 % rgeo=915) NEUTROPHILS ABSOLUTE COUNT (BEAKER) (test 9.95 K/ L 1.56-6.13 plmr=261) LYMPHOCYTES ABSOLUTE COUNT (BEAKER) (test 3.92 K/ L 1.18-3.74 tznl=400) MONOCYTES ABSOLUTE COUNT (BEAKER) (test 2.29 K/ L 0.24-0.36 cwep=842) EOSINOPHILS ABSOLUTE COUNT (BEAKER) (test 0.45 K/ L 0.04-0.36 tiry=603) BASOPHILS ABSOLUTE COUNT (BEAKER) (test 0.04 K/ L 0.01-0.08 lams=955) IMMATURE GRANULOCYTES-RELATIVE PERCENT (BEAKER) 0 % 0-1 (test gcrf=3799) [id number] 11:18:00 Test Item Value Reference Range Comments FERRITIN (BEAKER) (test ddzm=549) [address]18[address] ng/mL 5-275 [id number] 07:10:00 Test Item Value Reference Range Comments MAGNESIUM (BEAKER) (test qigi=418) 2.0 mg/dL 1.6-2.6 BASIC METABOLIC [id number] 07:10:00 Test Item Value Reference Range Comments SODIUM (BEAKER) (test 137 meq/L 136-145 zdkn=422) POTASSIUM (BEAKER) (test 4.5 meq/L 3.5-5.1 vkar=516) CHLORIDE (BEAKER) (test 99 meq/L 98-107 zwdr=595) CO2 (BEAKER) (test 35 meq/L 22-29 sdfk=749) BLOOD UREA NITROGEN 18 mg/dL 7-21 (BEAKER) (test okez=877) CREATININE (BEAKER) (test 0.78 mg/dL 0.57-1.25 lgvb=740) GLUCOSE RANDOM (BEAKER) 102 mg/dL 70-105 (test wbtz=070) CALCIUM (BEAKER) (test 9.4 mg/dL 8.4-10.2 isdq=030) EGFR (BEAKER) (test 100 mL/min/1.73 sq m ESTIMATED GFR IS NOT zewo=4386) ACCURATE CREATININE CLEARANCE IN PREDICTING GLOMERULAR FILTRATION RATE. ESTIMATED GFR IS NOT APPLICABLE FOR DIALYSIS PATIENTS. CBC (HEMOGRAM ONLY)2017-11-19 07:06:00 Test Item Value Reference Range Comments WHITE BLOOD CELL COUNT (BEAKER) (test skxk=986) 15.3 K/ L 3.5-10.5 RED BLOOD CELL COUNT (BEAKER) (test wnpv=418) 2.42 M/ L 3.93-5.22 HEMOGLOBIN (BEAKER) (test wmmw=985) 7.1 GM/DL 11.2-15.7 HEMATOCRIT (BEAKER) (test xsld=369) 22.5 % 34.1-44.9 MEAN CORPUSCULAR VOLUME (BEAKER) (test rtab=436) 93.0 fL 79.4-94.8 MEAN CORPUSCULAR HEMOGLOBIN (BEAKER) (test 29.3 pg 25.6-32.2 bqay=923) MEAN CORPUSCULAR HEMOGLOBIN CONC (BEAKER) (test 31.6 GM/DL 32.2-35.5 zanl=936) RED CELL DISTRIBUTION WIDTH (BEAKER) (test 20.9 % 11.7-14.4 ozlm=477) PLATELET COUNT (BEAKER) (test asyz=134) 324 K/CU MM 150-450 MEAN PLATELET VOLUME (BEAKER) (test ldiv=045) 11.8 fL 9.4-12.3 NUCLEATED RED BLOOD CELLS (BEAKER) (test 1 /100 WBC 0-0 tiwd=090) BLOOD [id number] 06:00:00 Test Item Value Reference Range Comments CULTURE (BEAKER) (test leji=5198) No growth in 5 days ANTI-NUCLEAR ANTIBODY (AMARILYS)2017-11-17 14:21:00 Test Item Value Reference Range Comments ANTI-NUCLEAR ANTIBODY (AMARILYS) (BEAKER) (test Positive Negative cwgw=881) AMARILYS TITER AND [id number] 14:21:00 Test Item Value Reference Range Comments AMARILYS TITER (BEAKER) (test :160 olja=0330) AMARILYS PATTERN (BEAKER) (test Multiple nuclear dots pattern fdqw=2333) [id number] 07:16:00 Test Item Value Reference Range Comments PHOSPHORUS (BEAKER) (test igoj=031) 4.5 mg/dL 2.3-4.7 [id number] 07:16:00 Test Item Value Reference Range Comments MAGNESIUM (BEAKER) (test jedn=056) 1.4 mg/dL 1.6-2.6 BASIC METABOLIC [id number] 07:16:00 Test Item Value Reference Range Comments SODIUM (BEAKER) (test 141 meq/L 136-145 oxlw=831) POTASSIUM (BEAKER) (test 4.2 meq/L 3.5-5.1 mvdl=261) CHLORIDE (BEAKER) (test 98 meq/L 98-107 knjs=599) CO2 (BEAKER) (test 34 meq/L 22-29 iyri=701) BLOOD UREA NITROGEN 21 mg/dL 7-21 (BEAKER) (test svrs=736) CREATININE (BEAKER) (test 0.85 mg/dL 0.57-1.25 mpzm=759) GLUCOSE RANDOM (BEAKER) 98 mg/dL 70-105 (test sxfl=780) CALCIUM (BEAKER) (test 9.2 mg/dL 8.4-10.2 mnem=147) EGFR (BEAKER) (test 91 mL/min/1.73 sq m ESTIMATED GFR IS NOT plns=7942) ACCURATE CREATININE CLEARANCE IN PREDICTING GLOMERULAR FILTRATION RATE. ESTIMATED GFR IS NOT APPLICABLE FOR DIALYSIS PATIENTS. HEPATIC FUNCTION [id number] 07:16:00 Test Item Value Reference Range Comments TOTAL PROTEIN (BEAKER) (test sekj=737) 8.3 gm/dL 6.0-8.3 ALBUMIN (BEAKER) (test upoa=4904) 3.0 g/dL 3.5-5.0 BILIRUBIN TOTAL (BEAKER) (test ugld=414) 1.3 mg/dL 0.2-1.2 BILIRUBIN DIRECT (BEAKER) (test dujb=076) 0.7 mg/dL 0.1-0.5 ALKALINE PHOSPHATASE (BEAKER) (test cepv=014) 217 U/L 40-150 AST (SGOT) (BEAKER) (test lyly=486) 106 U/L 5-34 ALT (SGPT) (BEAKER) (test chcp=866) 46 U/L 6-55 CALCIUM, [id number] 06:50:00 Test Item Value Reference Range Comments CALCIUM IONIZED (BEAKER) (test ugbz=443) 1.11 mmol/L 1.12-1.27 PH, BLOOD (BEAKER) (test gskf=7943) 7.34 CBC W/PLT COUNT & AUTO [id number] 06:09:00 Test Item Value Reference Range Comments WHITE BLOOD CELL COUNT (BEAKER) (test zmeb=433) 16.8 K/ L 3.5-10.5 RED BLOOD CELL COUNT (BEAKER) (test zlac=461) 2.53 M/ L 3.93-5.22 HEMOGLOBIN (BEAKER) (test pfki=218) 7.3 GM/DL 11.2-15.7 HEMATOCRIT (BEAKER) (test fjrg=476) 23.3 % 34.1-44.9 MEAN CORPUSCULAR VOLUME (BEAKER) (test mhbf=054) 92.1 fL 79.4-94.8 MEAN CORPUSCULAR HEMOGLOBIN (BEAKER) (test 28.9 pg 25.6-32.2 cpgz=296) MEAN CORPUSCULAR HEMOGLOBIN CONC (BEAKER) (test 31.3 GM/DL 32.2-35.5 pyev=230) RED CELL DISTRIBUTION WIDTH (BEAKER) (test 20.2 % 11.7-14.4 ujms=747) PLATELET COUNT (BEAKER) (test ztkf=027) 305 K/CU MM 150-450 MEAN PLATELET VOLUME (BEAKER) (test qwpy=070) 12.0 fL 9.4-12.3 NUCLEATED RED BLOOD CELLS (BEAKER) (test 1 /100 WBC 0-0 tuav=398) NEUTROPHILS RELATIVE PERCENT (BEAKER) (test 66 % frly=046) LYMPHOCYTES RELATIVE PERCENT (BEAKER) (test 20 % hhfk=490) MONOCYTES RELATIVE PERCENT (BEAKER) (test 11 % frap=701) EOSINOPHILS RELATIVE PERCENT (BEAKER) (test 3 % ptnh=301) BASOPHILS RELATIVE PERCENT (BEAKER) (test 0 % qgvo=568) NEUTROPHILS ABSOLUTE COUNT (BEAKER) (test 10.99 K/ L 1.56-6.13 naxl=043) LYMPHOCYTES ABSOLUTE COUNT (BEAKER) (test 3.29 K/ L 1.18-3.74 uhcn=925) MONOCYTES ABSOLUTE COUNT (BEAKER) (test 1.89 K/ L 0.24-0.36 nace=193) EOSINOPHILS ABSOLUTE COUNT (BEAKER) (test 0.48 K/ L 0.04-0.36 osuj=445) BASOPHILS ABSOLUTE COUNT (BEAKER) (test 0.05 K/ L 0.01-0.08 tzbw=849) IMMATURE GRANULOCYTES-RELATIVE PERCENT (BEAKER) 0 % 0-1 (test susd=8999) HEPATITIS PANEL, [id number] 14:32:00 Test Item Value Reference Range Comments HEPATITIS A IGM ANTIBODY (BEAKER) (test Nonreactive Nonreactive xuru=766) HEPATITIS B CORE IGM ANTIBODY (BEAKER) (test Nonreactive Nonreactive rzkl=823) HEPATITIS C ANTIBODY (BEAKER) (test pgjd=969) Nonreactive Nonreactive HEPATITIS B SURFACE ANTIGEN (2) (BEAKER) (test Nonreactive Nonreactive yevt=0262) RAD, MANDIBLE, LESS THAN 4 [id number] 12:28:00Reason for exam:->fever, dental cariesFINAL REPORT Mandible [...] air cells are well aerated. Signed: [facility] Verified Date/Time: 11/16/2017 12:28:43 Reading Location: [facility] Reading Room RAD, CHEST, 2 [id number] 10:47:00Reason for exam:-> fever, chest painFINAL REPORT [...] No pneumothorax is seen. Signed: [facility] Verified Date/Time: 11/16/2017 10:47:19 Reading Location: [facility] Room URINE [id number] 09:53:00 Test Item Value Reference Range Comments CULTURE (BEAKER) (test >100,000 col/mL skin valentino yqis=6908) CBC W/PLT COUNT & AUTO [id number] 09:20:00 Test Item Value Reference Range Comments WHITE BLOOD CELL COUNT (BEAKER) (test wbzy=270) 18.6 K/ L 3.5-10.5 RED BLOOD CELL COUNT (BEAKER) (test vxjc=446) 2.63 M/ L 3.93-5.22 HEMOGLOBIN (BEAKER) (test skan=823) 7.6 GM/DL 11.2-15.7 HEMATOCRIT (BEAKER) (test roxi=055) 23.8 % 34.1-44.9 MEAN CORPUSCULAR VOLUME (BEAKER) (test smfb=237) 90.5 fL 79.4-94.8 MEAN CORPUSCULAR HEMOGLOBIN (BEAKER) (test 28.9 pg 25.6-32.2 dmtn=187) MEAN CORPUSCULAR HEMOGLOBIN CONC (BEAKER) (test 31.9 GM/DL 32.2-35.5 zekq=765) RED CELL DISTRIBUTION WIDTH (BEAKER) (test 19.9 % 11.7-14.4 pwxn=334) PLATELET COUNT (BEAKER) (test btye=437) 330 K/CU MM 150-450 MEAN PLATELET VOLUME (BEAKER) (test wsji=204) 11.9 fL 9.4-12.3 NUCLEATED RED BLOOD CELLS (BEAKER) (test 1 /100 WBC 0-0 xryo=832) NEUTROPHILS RELATIVE PERCENT (BEAKER) (test 65 % lyiu=587) LYMPHOCYTES RELATIVE PERCENT (BEAKER) (test 22 % jozj=291) MONOCYTES RELATIVE PERCENT (BEAKER) (test 10 % wtka=343) EOSINOPHILS RELATIVE PERCENT (BEAKER) (test 2 % svwq=742) BASOPHILS RELATIVE PERCENT (BEAKER) (test 0 % rdts=963) NEUTROPHILS ABSOLUTE COUNT (BEAKER) (test 12.09 K/ L 1.56-6.13 jflt=579) LYMPHOCYTES ABSOLUTE COUNT (BEAKER) (test 4.02 K/ L 1.18-3.74 upui=470) MONOCYTES ABSOLUTE COUNT (BEAKER) (test 1.90 K/ L 0.24-0.36 sxmb=211) EOSINOPHILS ABSOLUTE COUNT (BEAKER) (test 0.41 K/ L 0.04-0.36 hwtt=237) BASOPHILS ABSOLUTE COUNT (BEAKER) (test 0.05 K/ L 0.01-0.08 suwg=013) IMMATURE GRANULOCYTES-RELATIVE PERCENT (BEAKER) 0 % 0-1 (test dudl=2039) (MANUAL DIFFERENTIAL)2017-11-16 09:20:00 Test Item Value Reference Range Comments TOTAL COUNTED (BEAKER) (test lhqk=2297) WBC MORPHOLOGY (BEAKER) (test ibvy=285) Normal PLT MORPHOLOGY (BEAKER) (test ttln=474) Normal POLYCHROMATOPHILLIC RBCS(BEAKER) (test yrio=342) 1+ few SICKLE CELLS (BEAKER) (test wnqp=547) 1+ few TARGET CELLS (BEAKER) (test lagy=116) 2+ moderate CALCIUM, [id number] 07:28:00 Test Item Value Reference Range Comments CALCIUM IONIZED (BEAKER) (test aqle=900) 0.97 mmol/L 1.12-1.27 PH, BLOOD (BEAKER) (test xbbe=3679) 7.45 [id number] 05:48:00 Test Item Value Reference Range Comments PHOSPHORUS (BEAKER) (test utew=997) 4.8 mg/dL 2.3-4.7 [id number] 05:48:00 Test Item Value Reference Range Comments MAGNESIUM (BEAKER) (test qvdh=593) 1.6 mg/dL 1.6-2.6 BASIC METABOLIC [id number] 05:48:00 Test Item Value Reference Range Comments SODIUM (BEAKER) (test 139 meq/L 136-145 buum=526) POTASSIUM (BEAKER) (test 3.9 meq/L 3.5-5.1 tcuc=988) CHLORIDE (BEAKER) (test 98 meq/L 98-107 dxnc=443) CO2 (BEAKER) (test 32 meq/L 22-29 rale=697) BLOOD UREA NITROGEN 23 mg/dL 7-21 (BEAKER) (test hluy=458) CREATININE (BEAKER) (test 1.10 mg/dL 0.57-1.25 zwio=049) GLUCOSE RANDOM (BEAKER) 115 mg/dL 70-105 (test vkak=613) CALCIUM (BEAKER) (test 9.0 mg/dL 8.4-10.2 mguk=991) EGFR (BEAKER) (test 67 mL/min/1.73 sq m ESTIMATED GFR IS NOT adzt=9786) ACCURATE CREATININE CLEARANCE IN PREDICTING GLOMERULAR FILTRATION RATE. ESTIMATED GFR IS NOT APPLICABLE FOR DIALYSIS PATIENTS. URINALYSIS W/ [id number] 19:14:00 Test Item Value Reference Range Comments COLOR (BEAKER) (test gwck=740) Yellow CLARITY (BEAKER) (test ljqd=414) Clear SPECIFIC GRAVITY UA (BEAKER) (test ppyw=291) 1.006 1.001-1.035 PH UA (BEAKER) (test hjna=421) 7.5 5.0-8.0 PROTEIN UA (BEAKER) (test retg=464) Negative Negative GLUCOSE UA (BEAKER) (test thhw=460) Negative Negative KETONES UA (BEAKER) (test fuor=631) Negative Negative BILIRUBIN UA (BEAKER) (test qzww=555) Negative Negative BLOOD UA (BEAKER) (test ppzt=225) Trace Negative NITRITE UA (BEAKER) (test pdeb=465) Negative Negative LEUKOCYTE ESTERASE UA (BEAKER) (test icym=242) Small Negative UROBILINOGEN UA (BEAKER) (test yxhl=508) 0.2 mg/dL 0.2-1.0 RBC UA (BEAKER) (test zrpf=542) < /HPF WBC UA (BEAKER) (test oetq=429) 7 /HPF BACTERIA (BEAKER) (test ijsf=489) Rare SQUAMOUS EPITHELIAL (BEAKER) (test uqlt=034) 1 /HPF SOURCE(BEAKER) (test ffmw=7779) Urine, Voided [id number] 13:26:00 Test Item Value Reference Range Comments LIPASE (BEAKER) (test fpwm=603) 95 U/L 8-78 RAD, ABDOMEN/KUB, 1 VIEW [id number] 12:43:00Reason for exam:->abdominal painFINAL REPORT Abdomen one [...] MDReport Verified Date/Time: 11/15/2017 12:43:04 Reading Location: [facility] Radiology Reading Room CBC W/PLT COUNT & AUTO [id number] 10:00:00 Test Item Value Reference Range Comments WHITE BLOOD CELL COUNT (BEAKER) (test skqs=576) 18.8 K/ L 3.5-10.5 RED BLOOD CELL COUNT (BEAKER) (test gddf=971) 1.83 M/ L 3.93-5.22 HEMOGLOBIN (BEAKER) (test iugw=802) 5.4 GM/DL 11.2-15.7 HEMATOCRIT (BEAKER) (test wujd=654) 16.7 % 34.1-44.9 MEAN CORPUSCULAR VOLUME (BEAKER) (test tofr=433) 91.3 fL 79.4-94.8 MEAN CORPUSCULAR HEMOGLOBIN (BEAKER) (test 29.5 pg 25.6-32.2 hgpt=031) MEAN CORPUSCULAR HEMOGLOBIN CONC (BEAKER) (test 32.3 GM/DL 32.2-35.5 vgyr=946) RED CELL DISTRIBUTION WIDTH (BEAKER) (test 21.7 % 11.7-14.4 iywg=068) PLATELET COUNT (BEAKER) (test itir=655) 340 K/CU MM 150-450 MEAN PLATELET VOLUME (BEAKER) (test lunp=639) 11.3 fL 9.4-12.3 NUCLEATED RED BLOOD CELLS (BEAKER) (test 2 /100 WBC 0-0 gmgr=090) NEUTROPHILS RELATIVE PERCENT (BEAKER) (test 65 % vlqv=717) LYMPHOCYTES RELATIVE PERCENT (BEAKER) (test 23 % hnbk=991) MONOCYTES RELATIVE PERCENT (BEAKER) (test 10 % lntr=513) EOSINOPHILS RELATIVE PERCENT (BEAKER) (test 1 % aduf=904) BASOPHILS RELATIVE PERCENT (BEAKER) (test 0 % dfdy=065) NEUTROPHILS ABSOLUTE COUNT (BEAKER) (test 12.25 K/ L 1.56-6.13 apzo=040) LYMPHOCYTES ABSOLUTE COUNT (BEAKER) (test 4.31 K/ L 1.18-3.74 cjxi=911) MONOCYTES ABSOLUTE COUNT (BEAKER) (test 1.88 K/ L 0.24-0.36 khlh=941) EOSINOPHILS ABSOLUTE COUNT (BEAKER) (test 0.26 K/ L 0.04-0.36 hyyu=574) BASOPHILS ABSOLUTE COUNT (BEAKER) (test 0.02 K/ L 0.01-0.08 rysc=994) IMMATURE GRANULOCYTES-RELATIVE PERCENT (BEAKER) 1 % 0-1 (test riki=8744) (MANUAL DIFFERENTIAL)2017-11-15 10:00:00 Test Item Value Reference Range Comments TOTAL COUNTED (BEAKER) (test yujq=6888) ATYPICAL LYMPHS(BEAKER) (test qgcf=3887) Present LARGE PLT(BEAKER) (test nyxn=7112) Present HYPOCHROMIA (BEAKER) (test kxcy=601) 1+ few POLYCHROMATOPHILLIC RBCS(BEAKER) (test vacs=277) 1+ few SICKLE CELLS (BEAKER) (test yxow=007) 1+ few TARGET CELLS (BEAKER) (test ptlj=402) 1+ few U/S, ENDOVAGINAL (EV)2017-11-15 09:03:00Reason for [...] MDReport Verified Date/Time: 2017 09:03:15 Reading Location: [address] Ultrasound Reading Room CBC W/ PLT COUNT & AUTO [id number] 08:32:00 Test Item Value Reference Range Comments WHITE BLOOD CELL COUNT (BEAKER) (test gnlc=907) 19.8 K/ L 3.5-10.5 RED BLOOD CELL COUNT (BEAKER) (test ycjc=063) 1.89 M/ L 3.93-5.22 HEMOGLOBIN (BEAKER) (test gfwn=165) 5.6 GM/DL 11.2-15.7 HEMATOCRIT (BEAKER) (test qwxf=528) 17.2 % 34.1-44.9 MEAN CORPUSCULAR VOLUME (BEAKER) (test uhux=745) 91.0 fL 79.4-94.8 MEAN CORPUSCULAR HEMOGLOBIN (BEAKER) (test 29.6 pg 25.6-32.2 zqgq=925) MEAN CORPUSCULAR HEMOGLOBIN CONC (BEAKER) (test 32.6 GM/DL 32.2-35.5 wmwy=471) RED CELL DISTRIBUTION WIDTH (BEAKER) (test 21.4 % 11.7-14.4 ymli=749) PLATELET COUNT (BEAKER) (test gvlm=469) 366 K/CU MM 150-450 MEAN PLATELET VOLUME (BEAKER) (test qgii=919) 11.6 fL 9.4-12.3 NUCLEATED RED BLOOD CELLS (BEAKER) (test 2 /100 WBC 0-0 enom=357) NEUTROPHILS RELATIVE PERCENT (BEAKER) (test 70 % vfvq=184) LYMPHOCYTES RELATIVE PERCENT (BEAKER) (test 18 % dulf=951) MONOCYTES RELATIVE PERCENT (BEAKER) (test 10 % hjmm=107) EOSINOPHILS RELATIVE PERCENT (BEAKER) (test 1 % qqot=632) BASOPHILS RELATIVE PERCENT (BEAKER) (test 0 % argy=391) NEUTROPHILS ABSOLUTE COUNT (BEAKER) (test 13.93 K/ L 1.56-6.13 cmvl=157) LYMPHOCYTES ABSOLUTE COUNT (BEAKER) (test 3.51 K/ L 1.18-3.74 tasu=932) MONOCYTES ABSOLUTE COUNT (BEAKER) (test 2.03 K/ L 0.24-0.36 scyw=403) EOSINOPHILS ABSOLUTE COUNT (BEAKER) (test 0.23 K/ L 0.04-0.36 ikpe=458) BASOPHILS ABSOLUTE COUNT (BEAKER) (test 0.02 K/ L 0.01-0.08 udrf=295) IMMATURE GRANULOCYTES-RELATIVE PERCENT (BEAKER) 0 % 0-1 (test iuau=9799) [id number] 06:16:00 Test Item Value Reference Range Comments PHOSPHORUS (BEAKER) (test woph=576) 4.6 mg/dL 2.3-4.7 [id number] 06:16:00 Test Item Value Reference Range Comments MAGNESIUM (BEAKER) (test jerq=205) 1.6 mg/dL 1.6-2.6 BASIC METABOLIC [id number] 06:16:00 Test Item Value Reference Range Comments SODIUM (BEAKER) (test 139 meq/L 136-145 dpwt=588) POTASSIUM (BEAKER) (test 3.9 meq/L 3.5-5.1 feqf=825) CHLORIDE (BEAKER) (test 97 meq/L 98-107 ytno=565) CO2 (BEAKER) (test 33 meq/L 22-29 ivyb=614) BLOOD UREA NITROGEN 24 mg/dL 7-21 (BEAKER) (test yaqm=411) CREATININE (BEAKER) (test 1.15 mg/dL 0.57-1.25 qyht=140) GLUCOSE RANDOM (BEAKER) 104 mg/dL 70-105 (test wimb=392) CALCIUM (BEAKER) (test 9.1 mg/dL 8.4-10.2 qwje=696) EGFR (BEAKER) (test 64 mL/min/1.73 sq m ESTIMATED GFR IS NOT quvf=0979) ACCURATE CREATININE CLEARANCE IN PREDICTING GLOMERULAR FILTRATION RATE. ESTIMATED GFR IS NOT APPLICABLE FOR DIALYSIS PATIENTS. HEPATIC FUNCTION [id number] 06:16:00 Test Item Value Reference Range Comments TOTAL PROTEIN (BEAKER) (test aegv=254) 8.2 gm/dL 6.0-8.3 ALBUMIN (BEAKER) (test ctvh=6873) 2.9 g/dL 3.5-5.0 BILIRUBIN TOTAL (BEAKER) (test guaw=228) 1.1 mg/dL 0.2-1.2 BILIRUBIN DIRECT (BEAKER) (test xaao=398) 0.5 mg/dL 0.1-0.5 ALKALINE PHOSPHATASE (BEAKER) (test ohkx=278) 164 U/L 40-150 AST (SGOT) (BEAKER) (test irns=987) 76 U/L 5-34 ALT (SGPT) (BEAKER) (test rsqe=809) 34 U/L 6-55 CALCIUM, [id number] 06:00:00 Test Item Value Reference Range Comments CALCIUM IONIZED (BEAKER) (test uwml=714) 0.93 mmol/L 1.12-1.27 PH, BLOOD (BEAKER) (test byhi=2681) 7.52 URINALYSIS W/ [id number] 18:32:00 Test Item Value Reference Range Comments COLOR (BEAKER) (test wvqn=757) Light Yellow CLARITY (BEAKER) (test jdof=779) Clear SPECIFIC GRAVITY UA (BEAKER) (test gcvc=595) 1.006 1.001-1.035 PH UA (BEAKER) (test bmse=041) 7.0 5.0-8.0 PROTEIN UA (BEAKER) (test zygk=521) Negative Negative GLUCOSE UA (BEAKER) (test ddti=810) Negative Negative KETONES UA (BEAKER) (test pszb=655) Negative Negative BILIRUBIN UA (BEAKER) (test dhzq=471) Negative Negative BLOOD UA (BEAKER) (test sfsq=580) Trace Negative NITRITE UA (BEAKER) (test oudm=327) Negative Negative LEUKOCYTE ESTERASE UA (BEAKER) (test eiig=550) Small Negative UROBILINOGEN UA (BEAKER) (test usgc=342) 0.2 mg/dL 0.2-1.0 RBC UA (BEAKER) (test vqat=279) 1 /HPF WBC UA (BEAKER) (test ctmx=784) 7 /HPF BACTERIA (BEAKER) (test zpql=116) Rare MUCUS (BEAKER) (test etyd=3381) Rare SQUAMOUS EPITHELIAL (BEAKER) (test fmeq=029) 4 /HPF SOURCE(BEAKER) (test iqai=4496) Urine, Voided CALCIUM, [id number] 07:19:00 Test Item Value Reference Range Comments CALCIUM IONIZED (BEAKER) (test nccd=863) 1.03 mmol/L 1.12-1.27 PH, BLOOD (BEAKER) (test xtwu=3584) 7.40 CBC W/PLT COUNT & AUTO [id number] 06:26:00 Test Item Value Reference Range Comments WHITE BLOOD CELL COUNT (BEAKER) (test guil=429) 18.5 K/ L 3.5-10.5 RED BLOOD CELL COUNT (BEAKER) (test ydkk=972) 2.02 M/ L 3.93-5.22 HEMOGLOBIN (BEAKER) (test hiap=706) 6.0 GM/DL 11.2-15.7 HEMATOCRIT (BEAKER) (test douz=374) 18.5 % 34.1-44.9 MEAN CORPUSCULAR VOLUME (BEAKER) (test iaja=129) 91.6 fL 79.4-94.8 MEAN CORPUSCULAR HEMOGLOBIN (BEAKER) (test 29.7 pg 25.6-32.2 lzyd=858) MEAN CORPUSCULAR HEMOGLOBIN CONC (BEAKER) (test 32.4 GM/DL 32.2-35.5 tuav=299) RED CELL DISTRIBUTION WIDTH (BEAKER) (test 21.9 % 11.7-14.4 ghar=949) PLATELET COUNT (BEAKER) (test yavx=556) 337 K/CU MM 150-450 MEAN PLATELET VOLUME (BEAKER) (test ddsx=476) 11.7 fL 9.4-12.3 NUCLEATED RED BLOOD CELLS (BEAKER) (test 4 /100 WBC 0-0 hozq=983) NEUTROPHILS RELATIVE PERCENT (BEAKER) (test 76 % jgbx=900) LYMPHOCYTES RELATIVE PERCENT (BEAKER) (test 16 % pdyx=528) MONOCYTES RELATIVE PERCENT (BEAKER) (test 6 % fzzj=203) EOSINOPHILS RELATIVE PERCENT (BEAKER) (test 1 % wbrz=702) BASOPHILS RELATIVE PERCENT (BEAKER) (test 0 % nnyr=757) NEUTROPHILS ABSOLUTE COUNT (BEAKER) (test 13.98 K/ L 1.56-6.13 ehdl=128) LYMPHOCYTES ABSOLUTE COUNT (BEAKER) (test 3.02 K/ L 1.18-3.74 nkqq=018) MONOCYTES ABSOLUTE COUNT (BEAKER) (test 1.13 K/ L 0.24-0.36 chbd=496) EOSINOPHILS ABSOLUTE COUNT (BEAKER) (test 0.09 K/ L 0.04-0.36 cglf=731) BASOPHILS ABSOLUTE COUNT (BEAKER) (test 0.05 K/ L 0.01-0.08 spny=222) IMMATURE GRANULOCYTES-RELATIVE PERCENT (BEAKER) 1 % 0-1 (test knzd=5417) [id number] 06:21:00 Test Item Value Reference Range Comments PHOSPHORUS (BEAKER) (test dfww=772) 4.3 mg/dL 2.3-4.7 [id number] 06:21:00 Test Item Value Reference Range Comments MAGNESIUM (BEAKER) (test pqrp=152) 2.1 mg/dL 1.6-2.6 BASIC METABOLIC [id number] 06:21:00 Test Item Value Reference Range Comments SODIUM (BEAKER) (test 139 meq/L 136-145 bkwb=741) POTASSIUM (BEAKER) (test 4.0 meq/L 3.5-5.1 iypk=949) CHLORIDE (BEAKER) (test 99 meq/L 98-107 rklg=778) CO2 (BEAKER) (test 31 meq/L 22-29 rrfo=736) BLOOD UREA NITROGEN 23 mg/dL 7-21 (BEAKER) (test anpt=217) CREATININE (BEAKER) (test 1.29 mg/dL 0.57-1.25 fiyf=046) GLUCOSE RANDOM (BEAKER) 116 mg/dL 70-105 (test clrp=053) CALCIUM (BEAKER) (test 8.8 mg/dL 8.4-10.2 uqaz=731) EGFR (BEAKER) (test 56 mL/min/1.73 sq m ESTIMATED GFR IS NOT deaq=5883) ACCURATE CREATININE CLEARANCE IN PREDICTING GLOMERULAR FILTRATION RATE. ESTIMATED GFR IS NOT APPLICABLE FOR DIALYSIS PATIENTS. B-TYPE NATRIURETIC FACTOR (BNP)2017-11-13 07:27:00 Test Item Value Reference Range Comments B-TYPE NATRIURETIC PEPTIDE (BEAKER) (test 166 pg/mL 0-100 bnqh=668) [id number] 07:26:00 Test Item Value Reference Range Comments PHOSPHORUS (BEAKER) (test wzgw=391) 4.6 mg/dL 2.3-4.7 [id number] 07:26:00 Test Item Value Reference Range Comments MAGNESIUM (BEAKER) (test jnyq=286) 1.6 mg/dL 1.6-2.6 BASIC METABOLIC [id number] 07:26:00 Test Item Value Reference Range Comments SODIUM (BEAKER) (test 139 meq/L 136-145 wnlz=690) POTASSIUM (BEAKER) (test 3.5 meq/L 3.5-5.1 iidv=104) CHLORIDE (BEAKER) (test 101 meq/L 98-107 tssu=896) CO2 (BEAKER) (test 32 meq/L 22-29 ujuv=524) BLOOD UREA NITROGEN 14 mg/dL 7-21 (BEAKER) (test rqfg=352) CREATININE (BEAKER) (test 1.09 mg/dL 0.57-1.25 nxxz=118) GLUCOSE RANDOM (BEAKER) 92 mg/dL 70-105 (test ufug=808) CALCIUM (BEAKER) (test 8.5 mg/dL 8.4-10.2 btsz=638) EGFR (BEAKER) (test 68 mL/min/1.73 sq m ESTIMATED GFR IS NOT khtr=7652) ACCURATE CREATININE CLEARANCE IN PREDICTING GLOMERULAR FILTRATION RATE. ESTIMATED GFR IS NOT APPLICABLE FOR DIALYSIS PATIENTS. CBC W/PLT COUNT & AUTO [id number] 07:23:00 Test Item Value Reference Range Comments WHITE BLOOD CELL COUNT (BEAKER) (test xeds=006) 18.4 K/ L 3.5-10.5 RED BLOOD CELL COUNT (BEAKER) (test twtl=362) 2.03 M/ L 3.93-5.22 HEMOGLOBIN (BEAKER) (test qhhw=982) 6.0 GM/DL 11.2-15.7 HEMATOCRIT (BEAKER) (test onyf=093) 18.8 % 34.1-44.9 MEAN CORPUSCULAR VOLUME (BEAKER) (test putk=537) 92.6 fL 79.4-94.8 MEAN CORPUSCULAR HEMOGLOBIN (BEAKER) (test 29.6 pg 25.6-32.2 mugd=356) MEAN CORPUSCULAR HEMOGLOBIN CONC (BEAKER) (test 31.9 GM/DL 32.2-35.5 sfsp=025) RED CELL DISTRIBUTION WIDTH (BEAKER) (test 22.9 % 11.7-14.4 ugox=376) PLATELET COUNT (BEAKER) (test csxt=149) 302 K/CU MM 150-450 MEAN PLATELET VOLUME (BEAKER) (test tcax=251) 11.3 fL 9.4-12.3 NUCLEATED RED BLOOD CELLS (BEAKER) (test 7 /100 WBC 0-0 nlpn=513) NEUTROPHILS RELATIVE PERCENT (BEAKER) (test 74 % lvtt=592) LYMPHOCYTES RELATIVE PERCENT (BEAKER) (test 18 % zpsz=723) MONOCYTES RELATIVE PERCENT (BEAKER) (test 7 % kamq=859) EOSINOPHILS RELATIVE PERCENT (BEAKER) (test 0 % ktzj=041) BASOPHILS RELATIVE PERCENT (BEAKER) (test 0 % esgv=078) NEUTROPHILS ABSOLUTE COUNT (BEAKER) (test 13.58 K/ L 1.56-6.13 kuth=119) LYMPHOCYTES ABSOLUTE COUNT (BEAKER) (test 3.24 K/ L 1.18-3.74 swlu=555) MONOCYTES ABSOLUTE COUNT (BEAKER) (test 1.23 K/ L 0.24-0.36 xovz=504) EOSINOPHILS ABSOLUTE COUNT (BEAKER) (test 0.07 K/ L 0.04-0.36 apee=647) BASOPHILS ABSOLUTE COUNT (BEAKER) (test 0.05 K/ L 0.01-0.08 hwqi=466) IMMATURE GRANULOCYTES-RELATIVE PERCENT (BEAKER) 1 % 0-1 (test ctch=0306) CALCIUM, [id number] 07:08:00 Test Item Value Reference Range Comments CALCIUM IONIZED (BEAKER) (test petd=747) 1.03 mmol/L 1.12-1.27 PH, BLOOD (BEAKER) (test giaz=6571) 7.38 CBC W/PLT COUNT & AUTO [id number] 08:23:00 Test Item Value Reference Range Comments WHITE BLOOD CELL COUNT (BEAKER) (test zjgd=960) 20.4 K/ L 3.5-10.5 RED BLOOD CELL COUNT (BEAKER) (test pclx=794) 2.08 M/ L 3.93-5.22 HEMOGLOBIN (BEAKER) (test geyv=529) 6.4 GM/DL 11.2-15.7 HEMATOCRIT (BEAKER) (test raxb=907) 19.7 % 34.1-44.9 MEAN CORPUSCULAR VOLUME (BEAKER) (test gslz=410) 94.7 fL 79.4-94.8 MEAN CORPUSCULAR HEMOGLOBIN (BEAKER) (test 30.8 pg 25.6-32.2 oyle=953) MEAN CORPUSCULAR HEMOGLOBIN CONC (BEAKER) (test 32.5 GM/DL 32.2-35.5 ymzl=167) RED CELL DISTRIBUTION WIDTH (BEAKER) (test 24.3 % 11.7-14.4 gwgy=113) PLATELET COUNT (BEAKER) (test zrvu=103) 290 K/CU MM 150-450 MEAN PLATELET VOLUME (BEAKER) (test irsv=380) 11.5 fL 9.4-12.3 NUCLEATED RED BLOOD CELLS (BEAKER) (test 19 /100 WBC 0-0 alff=294) NEUTROPHILS RELATIVE PERCENT (BEAKER) (test 75 % sswd=961) LYMPHOCYTES RELATIVE PERCENT (BEAKER) (test 16 % dwrg=429) MONOCYTES RELATIVE PERCENT (BEAKER) (test 8 % vebi=302) EOSINOPHILS RELATIVE PERCENT (BEAKER) (test 0 % lfvx=332) BASOPHILS RELATIVE PERCENT (BEAKER) (test 0 % brcb=640) NEUTROPHILS ABSOLUTE COUNT (BEAKER) (test 15.32 K/ L 1.56-6.13 wcft=682) LYMPHOCYTES ABSOLUTE COUNT (BEAKER) (test 3.24 K/ L 1.18-3.74 fyyv=044) MONOCYTES ABSOLUTE COUNT (BEAKER) (test 1.61 K/ L 0.24-0.36 ijee=755) EOSINOPHILS ABSOLUTE COUNT (BEAKER) (test 0.05 K/ L 0.04-0.36 pevg=815) BASOPHILS ABSOLUTE COUNT (BEAKER) (test 0.04 K/ L 0.01-0.08 ongc=752) IMMATURE GRANULOCYTES-RELATIVE PERCENT (BEAKER) 0 % 0-1 (test hmmf=3598) (MANUAL DIFFERENTIAL)2017-11-12 08:23:00 Test Item Value Reference Range Comments TOTAL COUNTED (BEAKER) (test inpv=3616) WBC MORPHOLOGY (BEAKER) (test pomd=339) Normal LARGE PLT(BEAKER) (test lglf=4215) Present HYPOCHROMIA (BEAKER) (test mxva=078) 1+ few POLYCHROMATOPHILLIC RBCS(BEAKER) (test mjlz=878) 1+ few SICKLE CELLS (BEAKER) (test mwae=016) 1+ few TARGET CELLS (BEAKER) (test jpqp=254) 1+ few [id number] 08:11:00 Test Item Value Reference Range Comments PHOSPHORUS (BEAKER) (test hdvr=688) 4.3 mg/dL 2.3-4.7 [id number] 08:11:00 Test Item Value Reference Range Comments MAGNESIUM (BEAKER) (test ljno=828) 1.3 mg/dL 1.6-2.6 BASIC METABOLIC [id number] 08:11:00 Test Item Value Reference Range Comments SODIUM (BEAKER) (test 140 meq/L 136-145 exbb=343) POTASSIUM (BEAKER) (test 3.4 meq/L 3.5-5.1 tldb=985) CHLORIDE (BEAKER) (test 103 meq/L 98-107 qxqw=476) CO2 (BEAKER) (test 27 meq/L 22-29 tmeh=550) BLOOD UREA NITROGEN 15 mg/dL 7-21 (BEAKER) (test idvb=854) CREATININE (BEAKER) (test 1.10 mg/dL 0.57-1.25 mpyk=204) GLUCOSE RANDOM (BEAKER) 91 mg/dL 70-105 (test lvpt=722) CALCIUM (BEAKER) (test 8.5 mg/dL 8.4-10.2 pafy=688) EGFR (BEAKER) (test 67 mL/min/1.73 sq m ESTIMATED GFR IS NOT elsw=0851) ACCURATE CREATININE CLEARANCE IN PREDICTING GLOMERULAR FILTRATION RATE. ESTIMATED GFR IS NOT APPLICABLE FOR DIALYSIS PATIENTS. CALCIUM, [id number] 07:19:00 Test Item Value Reference Range Comments CALCIUM IONIZED (BEAKER) (test bjsv=367) 0.98 mmol/L 1.12-1.27 PH, BLOOD (BEAKER) (test eldl=9295) 7.39 BLOOD [id number] 00:00:00 Test Item Value Reference Range Comments CULTURE (BEAKER) (test upop=4154) No growth in 5 days CBC W/PLT COUNT & AUTO [id number] 13:18:00 Test Item Value Reference Range Comments WHITE BLOOD CELL COUNT (BEAKER) (test apcl=872) 20.7 K/ L 3.5-10.5 RED BLOOD CELL COUNT (BEAKER) (test ohzb=551) 2.12 M/ L 3.93-5.22 HEMOGLOBIN (BEAKER) (test ymrw=701) 6.7 GM/DL 11.2-15.7 HEMATOCRIT (BEAKER) (test svwt=289) 20.4 % 34.1-44.9 MEAN CORPUSCULAR VOLUME (BEAKER) (test stto=460) 96.2 fL 79.4-94.8 MEAN CORPUSCULAR HEMOGLOBIN (BEAKER) (test 31.6 pg 25.6-32.2 tqwe=801) MEAN CORPUSCULAR HEMOGLOBIN CONC (BEAKER) (test 32.8 GM/DL 32.2-35.5 vaju=952) RED CELL DISTRIBUTION WIDTH (BEAKER) (test 25.9 % 11.7-14.4 ucmr=402) PLATELET COUNT (BEAKER) (test oykf=547) 262 K/CU MM 150-450 MEAN PLATELET VOLUME (BEAKER) (test feua=994) 11.2 fL 9.4-12.3 NUCLEATED RED BLOOD CELLS (BEAKER) (test 40 /100 WBC 0-0 bfvd=591) NEUTROPHILS RELATIVE PERCENT (BEAKER) (test 76 % qazd=284) LYMPHOCYTES RELATIVE PERCENT (BEAKER) (test 16 % dgjz=998) MONOCYTES RELATIVE PERCENT (BEAKER) (test 8 % yujd=863) EOSINOPHILS RELATIVE PERCENT (BEAKER) (test 0 % ofxf=788) BASOPHILS RELATIVE PERCENT (BEAKER) (test 0 % rfor=501) NEUTROPHILS ABSOLUTE COUNT (BEAKER) (test 15.60 K/ L 1.56-6.13 tksm=774) LYMPHOCYTES ABSOLUTE COUNT (BEAKER) (test 3.23 K/ L 1.18-3.74 ilgh=058) MONOCYTES ABSOLUTE COUNT (BEAKER) (test 1.54 K/ L 0.24-0.36 mgow=180) EOSINOPHILS ABSOLUTE COUNT (BEAKER) (test 0.02 K/ L 0.04-0.36 fipn=973) BASOPHILS ABSOLUTE COUNT (BEAKER) (test 0.05 K/ L 0.01-0.08 exeg=942) IMMATURE GRANULOCYTES-RELATIVE PERCENT (BEAKER) 1 % 0-1 (test kjao=2686) (MANUAL DIFFERENTIAL)2017-11-11 13:18:00 Test Item Value Reference Range Comments TOTAL COUNTED (BEAKER) (test shmo=0109) WBC MORPHOLOGY (BEAKER) (test dddc=266) Normal LARGE PLT(BEAKER) (test chef=8899) Present POLYCHROMATOPHILLIC RBCS(BEAKER) (test eozy=547) 1+ few SICKLE CELLS (BEAKER) (test yqba=204) 1+ few TARGET CELLS (BEAKER) (test hvka=050) 1+ few [id number] 08:05:00 Test Item Value Reference Range Comments PHOSPHORUS (BEAKER) (test wfgb=949) 5.0 mg/dL 2.3-4.7 [id number] 08:05:00 Test Item Value Reference Range Comments MAGNESIUM (BEAKER) (test eglp=909) 1.6 mg/dL 1.6-2.6 BASIC METABOLIC [id number] 08:05:00 Test Item Value Reference Range Comments SODIUM (BEAKER) (test 140 meq/L 136-145 okkz=615) POTASSIUM (BEAKER) (test 3.7 meq/L 3.5-5.1 lvcx=963) CHLORIDE (BEAKER) (test 107 meq/L 98-107 elvs=144) CO2 (BEAKER) (test 24 meq/L 22-29 kozr=661) BLOOD UREA NITROGEN 19 mg/dL 7-21 (BEAKER) (test kpdj=921) CREATININE (BEAKER) (test 1.23 mg/dL 0.57-1.25 aucw=046) GLUCOSE RANDOM (BEAKER) 96 mg/dL 70-105 (test saxt=535) CALCIUM (BEAKER) (test 8.5 mg/dL 8.4-10.2 czfc=625) EGFR (BEAKER) (test 59 mL/min/1.73 sq m ESTIMATED GFR IS NOT tcnj=7158) ACCURATE CREATININE CLEARANCE IN PREDICTING GLOMERULAR FILTRATION RATE. ESTIMATED GFR IS NOT APPLICABLE FOR DIALYSIS PATIENTS. CALCIUM, [id number] 06:38:00 Test Item Value Reference Range Comments CALCIUM IONIZED (BEAKER) (test nuzm=010) 1.07 mmol/L 1.12-1.27 PH, BLOOD (BEAKER) (test zgkr=6035) 7.31 CBC W/PLT COUNT & AUTO [id number] 14:53:00 Test Item Value Reference Range Comments WHITE BLOOD CELL COUNT (BEAKER) (test fgan=551) 21.8 K/ L 3.5-10.5 RED BLOOD CELL COUNT (BEAKER) (test yztg=506) 2.17 M/ L 3.93-5.22 HEMOGLOBIN (BEAKER) (test gjkz=016) 6.8 GM/DL 11.2-15.7 HEMATOCRIT (BEAKER) (test bcsn=754) 21.3 % 34.1-44.9 MEAN CORPUSCULAR VOLUME (BEAKER) (test qxfu=568) 98.2 fL 79.4-94.8 MEAN CORPUSCULAR HEMOGLOBIN (BEAKER) (test 31.3 pg 25.6-32.2 jgzc=998) MEAN CORPUSCULAR HEMOGLOBIN CONC (BEAKER) (test 31.9 GM/DL 32.2-35.5 yhmf=635) RED CELL DISTRIBUTION WIDTH (BEAKER) (test 27.6 % 11.7-14.4 epzf=443) PLATELET COUNT (BEAKER) (test pazr=452) 244 K/CU MM 150-450 MEAN PLATELET VOLUME (BEAKER) (test ejft=924) 11.4 fL 9.4-12.3 NUCLEATED RED BLOOD CELLS (BEAKER) (test 80 /100 WBC 0-0 cejh=958) NEUTROPHILS RELATIVE PERCENT (BEAKER) (test 82 % dpaq=326) LYMPHOCYTES RELATIVE PERCENT (BEAKER) (test 7 % yxyj=539) MONOCYTES RELATIVE PERCENT (BEAKER) (test 10 % vnpm=660) EOSINOPHILS RELATIVE PERCENT (BEAKER) (test 0 % oaaj=033) BASOPHILS RELATIVE PERCENT (BEAKER) (test 0 % wwue=876) NEUTROPHILS ABSOLUTE COUNT (BEAKER) (test 17.85 K/ L 1.56-6.13 aohr=804) LYMPHOCYTES ABSOLUTE COUNT (BEAKER) (test 1.60 K/ L 1.18-3.74 dbyk=548) MONOCYTES ABSOLUTE COUNT (BEAKER) (test 2.14 K/ L 0.24-0.36 jfjo=385) EOSINOPHILS ABSOLUTE COUNT (BEAKER) (test 0.03 K/ L 0.04-0.36 efmn=464) BASOPHILS ABSOLUTE COUNT (BEAKER) (test 0.03 K/ L 0.01-0.08 evsx=850) IMMATURE GRANULOCYTES-RELATIVE PERCENT (BEAKER) 1 % 0-1 (test lbfb=3310) (MANUAL DIFFERENTIAL)2017-11-10 14:53:00 Test Item Value Reference Range Comments TOTAL COUNTED (BEAKER) (test ovto=1255) WBC MORPHOLOGY (BEAKER) (test pauc=289) Normal LARGE PLT(BEAKER) (test cprb=0344) Present SCHISTOCYTES (BEAKER) (test akxt=596) 1+ few ACANTHOCYTES (BEAKER) (test itcf=446) 1+ few ANISOCYTOSIS (BEAKER) (test nzzj=951) 2+ moderate HYPOCHROMIA (BEAKER) (test stxj=984) 2+ moderate MACROCYTES (BEAKER) (test wesp=777) 3+ many MICROCYTES (BEAKER) (test uulj=990) 2+ moderate OVALOCYTES (BEAKER) (test tyno=951) 1+ few POIKILOCYTES (BEAKER) (test orzb=618) 3+ many POLYCHROMATOPHILLIC RBCS(BEAKER) (test fvjj=431) 2+ moderate SICKLE CELLS (BEAKER) (test wvxw=639) 2+ moderate TARGET CELLS (BEAKER) (test ojvr=152) 1+ few BASIC METABOLIC [id number] 08:54:00 Test Item Value Reference Range Comments SODIUM (BEAKER) (test 140 meq/L 136-145 klli=845) POTASSIUM (BEAKER) (test 4.0 meq/L 3.5-5.1 esmh=859) CHLORIDE (BEAKER) (test 109 meq/L 98-107 qtce=665) CO2 (BEAKER) (test 19 meq/L 22-29 khds=379) BLOOD UREA NITROGEN 21 mg/dL 7-21 (BEAKER) (test hspq=392) CREATININE (BEAKER) (test 1.27 mg/dL 0.57-1.25 mqpi=230) GLUCOSE RANDOM (BEAKER) 122 mg/dL 70-105 (test kgyo=605) CALCIUM (BEAKER) (test 8.6 mg/dL 8.4-10.2 coss=335) EGFR (BEAKER) (test 57 mL/min/1.73 sq m ESTIMATED GFR IS NOT efdx=7593) ACCURATE CREATININE CLEARANCE IN PREDICTING GLOMERULAR FILTRATION RATE. ESTIMATED GFR IS NOT APPLICABLE FOR DIALYSIS PATIENTS. [id number] 08:54:00 Test Item Value Reference Range Comments MAGNESIUM (BEAKER) (test wzxs=132) 1.5 mg/dL 1.6-2.6 [id number] 08:54:00 Test Item Value Reference Range Comments PHOSPHORUS (BEAKER) (test tsqe=655) 4.5 mg/dL 2.3-4.7 COMPREHENSIVE METABOLIC [id number] 08:54:00 Test Item Value Reference Range Comments TOTAL PROTEIN (BEAKER) 8.2 gm/dL 6.0-8.3 (test mgnk=045) ALBUMIN (BEAKER) (test 3.1 g/dL 3.5-5.0 pjoa=6969) ALKALINE PHOSPHATASE 154 U/L 40-150 (BEAKER) (test ebeh=319) BILIRUBIN TOTAL (BEAKER) 1.4 mg/dL 0.2-1.2 (test lthl=407) SODIUM (BEAKER) (test 140 meq/L 136-145 hljv=718) POTASSIUM (BEAKER) (test 4.0 meq/L 3.5-5.1 ciuo=608) CHLORIDE (BEAKER) (test 109 meq/L 98-107 tnyf=857) CO2 (BEAKER) (test 19 meq/L 22-29 kcuc=252) BLOOD UREA NITROGEN 21 mg/dL 7-21 (BEAKER) (test hhmp=897) CREATININE (BEAKER) (test 1.27 mg/dL 0.57-1.25 hoci=169) GLUCOSE RANDOM (BEAKER) 122 mg/dL 70-105 (test zqai=135) CALCIUM (BEAKER) (test 8.6 mg/dL 8.4-10.2 hcox=539) AST (SGOT) (BEAKER) (test 72 U/L 5-34 psuf=446) ALT (SGPT) (BEAKER) (test 50 U/L 6-55 dfoh=659) EGFR (BEAKER) (test 57 mL/min/1.73 sq m ESTIMATED GFR IS NOT hwpp=2616) ACCURATE CREATININE CLEARANCE IN PREDICTING GLOMERULAR FILTRATION RATE. ESTIMATED GFR IS NOT APPLICABLE FOR DIALYSIS PATIENTS. CALCIUM, [id number] 07:21:00 Test Item Value Reference Range Comments CALCIUM IONIZED (BEAKER) (test kzln=269) 1.04 mmol/L 1.12-1.27 PH, BLOOD (BEAKER) (test bvuy=9604) 7.39 CBC W/PLT COUNT & AUTO [id number] 12:10:00 Test Item Value Reference Range Comments WHITE BLOOD CELL COUNT (BEAKER) (test hygy=551) 20.8 K/ L 3.5-10.5 RED BLOOD CELL COUNT (BEAKER) (test geez=303) 2.11 M/ L 3.93-5.22 HEMOGLOBIN (BEAKER) (test tghk=188) 6.6 GM/DL 11.2-15.7 HEMATOCRIT (BEAKER) (test agya=773) 20.4 % 34.1-44.9 MEAN CORPUSCULAR VOLUME (BEAKER) (test unse=053) 96.7 fL 79.4-94.8 MEAN CORPUSCULAR HEMOGLOBIN (BEAKER) (test 31.3 pg 25.6-32.2 luip=300) MEAN CORPUSCULAR HEMOGLOBIN CONC (BEAKER) (test 32.4 GM/DL 32.2-35.5 gpxk=497) RED CELL DISTRIBUTION WIDTH (BEAKER) (test 27.2 % 11.7-14.4 rrap=685) PLATELET COUNT (BEAKER) (test wroj=368) 237 K/CU MM 150-450 MEAN PLATELET VOLUME (BEAKER) (test nvpp=787) 10.7 fL 9.4-12.3 NUCLEATED RED BLOOD CELLS (BEAKER) (test 98 /100 WBC 0-0 peks=402) NEUTROPHILS RELATIVE PERCENT (BEAKER) (test 82 % qwik=723) LYMPHOCYTES RELATIVE PERCENT (BEAKER) (test 6 % ticf=307) MONOCYTES RELATIVE PERCENT (BEAKER) (test 11 % kahz=288) EOSINOPHILS RELATIVE PERCENT (BEAKER) (test 0 % bwnx=871) BASOPHILS RELATIVE PERCENT (BEAKER) (test 0 % kxgz=896) NEUTROPHILS ABSOLUTE COUNT (BEAKER) (test 16.91 K/ L 1.56-6.13 dses=136) LYMPHOCYTES ABSOLUTE COUNT (BEAKER) (test 1.31 K/ L 1.18-3.74 isfv=852) MONOCYTES ABSOLUTE COUNT (BEAKER) (test 2.37 K/ L 0.24-0.36 zbkt=589) EOSINOPHILS ABSOLUTE COUNT (BEAKER) (test 0.01 K/ L 0.04-0.36 aphb=920) BASOPHILS ABSOLUTE COUNT (BEAKER) (test 0.05 K/ L 0.01-0.08 mhgd=588) IMMATURE GRANULOCYTES-RELATIVE PERCENT (BEAKER) 1 % 0-1 (test kshm=0718) (MANUAL DIFFERENTIAL)2017-11-09 12:10:00 Test Item Value Reference Range Comments TOTAL COUNTED (BEAKER) (test kwfy=6866) WBC MORPHOLOGY (BEAKER) (test lvvc=461) Normal PLT MORPHOLOGY (BEAKER) (test mjuk=696) Normal ANISOCYTOSIS (BEAKER) (test kshw=247) 2+ moderate MATTHEWS-JOLLY BODIES (BEAKER) (test jvgw=155) 1+ few POIKILOCYTES (BEAKER) (test usaf=919) 2+ moderate POLYCHROMATOPHILLIC RBCS(BEAKER) (test qset=303) 1+ few SICKLE CELLS (BEAKER) (test mzht=985) 2+ moderate TARGET CELLS (BEAKER) (test zckx=378) 1+ few CALCIUM, [id number] 07:44:00 Test Item Value Reference Range Comments CALCIUM IONIZED (BEAKER) (test xdzi=331) 1.16 mmol/L 1.12-1.27 PH, BLOOD (BEAKER) (test yulu=7490) 7.25 B-TYPE NATRIURETIC FACTOR (BNP)2017-11-09 07:43:00 Test Item Value Reference Range Comments B-TYPE NATRIURETIC PEPTIDE (BEAKER) (test 903 pg/mL 0-100 utoa=129) [id number] 07:27:00 Test Item Value Reference Range Comments PHOSPHORUS (BEAKER) (test souf=210) 4.4 mg/dL 2.3-4.7 [id number] 07:27:00 Test Item Value Reference Range Comments MAGNESIUM (BEAKER) (test gqfk=532) 1.7 mg/dL 1.6-2.6 COMPREHENSIVE METABOLIC [id number] 07:27:00 Test Item Value Reference Range Comments TOTAL PROTEIN (BEAKER) 7.8 gm/dL 6.0-8.3 (test vfhj=834) ALBUMIN (BEAKER) (test 3.2 g/dL 3.5-5.0 uvbs=7122) ALKALINE PHOSPHATASE 165 U/L 40-150 (BEAKER) (test viyl=915) BILIRUBIN TOTAL (BEAKER) 1.3 mg/dL 0.2-1.2 (test rsuv=613) SODIUM (BEAKER) (test 143 meq/L 136-145 jfda=558) POTASSIUM (BEAKER) (test 4.2 meq/L 3.5-5.1 jzus=829) CHLORIDE (BEAKER) (test 112 meq/L 98-107 umji=171) CO2 (BEAKER) (test 23 meq/L 22-29 jcod=354) BLOOD UREA NITROGEN 29 mg/dL 7-21 (BEAKER) (test otxo=183) CREATININE (BEAKER) (test 1.54 mg/dL 0.57-1.25 ongv=459) GLUCOSE RANDOM (BEAKER) 108 mg/dL 70-105 (test ywnl=548) CALCIUM (BEAKER) (test 9.1 mg/dL 8.4-10.2 jnww=555) AST (SGOT) (BEAKER) (test 110 U/L 5-34 tkag=982) ALT (SGPT) (BEAKER) (test 64 U/L 6-55 wkeo=835) EGFR (BEAKER) (test 46 mL/min/1.73 sq m ESTIMATED GFR IS NOT oixs=7477) ACCURATE CREATININE CLEARANCE IN PREDICTING GLOMERULAR FILTRATION RATE. ESTIMATED GFR IS NOT APPLICABLE FOR DIALYSIS PATIENTS. BASIC METABOLIC [id number] 07:27:00 Test Item Value Reference Range Comments SODIUM (BEAKER) (test 143 meq/L 136-145 ognb=687) POTASSIUM (BEAKER) (test 4.2 meq/L 3.5-5.1 dsbx=613) CHLORIDE (BEAKER) (test 112 meq/L 98-107 xhzl=586) CO2 (BEAKER) (test 23 meq/L 22-29 ufzx=617) BLOOD UREA NITROGEN 29 mg/dL 7-21 (BEAKER) (test opxt=764) CREATININE (BEAKER) (test 1.54 mg/dL 0.57-1.25 kspz=863) GLUCOSE RANDOM (BEAKER) 108 mg/dL 70-105 (test uzyd=573) CALCIUM (BEAKER) (test 9.1 mg/dL 8.4-10.2 szva=214) EGFR (BEAKER) (test 46 mL/min/1.73 sq m ESTIMATED GFR IS NOT mtxv=3507) ACCURATE CREATININE CLEARANCE IN PREDICTING GLOMERULAR FILTRATION RATE. ESTIMATED GFR IS NOT APPLICABLE FOR DIALYSIS PATIENTS. RAD, CHEST, 1 VIEW, NON [id number] 20:41:00Reason for exam:->edemaShould this be performed at [...] MDReport Verified Date/Time: 11/08/2017 20:41:24 Reading Location: [address] Reading Room Electronically signed by: CLIFF SALCIDO M.D. on 08:41 PMEOSINOPHIL SMEAR, [id number] 12:49:00 Test Item Value Reference Range Comments EOSINOPHIL SMEAR, URINE (BEAKER) (test No EOS seen No EOS seen jcfd=5264) CBC W/PLT COUNT & AUTO [id number] 10:40:00 Test Item Value Reference Range Comments WHITE BLOOD CELL COUNT (BEAKER) (test bqnc=171) 18.6 K/ L 3.5-10.5 RED BLOOD CELL COUNT (BEAKER) (test fdnw=485) 2.21 M/ L 3.93-5.22 HEMOGLOBIN (BEAKER) (test piur=921) 6.8 GM/DL 11.2-15.7 HEMATOCRIT (BEAKER) (test oqet=514) 20.6 % 34.1-44.9 MEAN CORPUSCULAR VOLUME (BEAKER) (test rsna=961) 93.2 fL 79.4-94.8 MEAN CORPUSCULAR HEMOGLOBIN (BEAKER) (test 30.8 pg 25.6-32.2 oucj=905) MEAN CORPUSCULAR HEMOGLOBIN CONC (BEAKER) (test 33.0 GM/DL 32.2-35.5 ghtn=539) RED CELL DISTRIBUTION WIDTH (BEAKER) (test 25.5 % 11.7-14.4 kwvs=515) PLATELET COUNT (BEAKER) (test lojt=076) 255 K/CU MM 150-450 MEAN PLATELET VOLUME (BEAKER) (test etkn=043) 10.6 fL 9.4-12.3 NUCLEATED RED BLOOD CELLS (BEAKER) (test 87 /100 WBC 0-0 iayu=913) NEUTROPHILS RELATIVE PERCENT (BEAKER) (test 70 % iqzm=492) LYMPHOCYTES RELATIVE PERCENT (BEAKER) (test 14 % rxnz=795) MONOCYTES RELATIVE PERCENT (BEAKER) (test 14 % oxum=841) EOSINOPHILS RELATIVE PERCENT (BEAKER) (test 0 % zobm=707) BASOPHILS RELATIVE PERCENT (BEAKER) (test 0 % nzen=356) NEUTROPHILS ABSOLUTE COUNT (BEAKER) (test 12.98 K/ L 1.56-6.13 nejm=583) LYMPHOCYTES ABSOLUTE COUNT (BEAKER) (test 2.67 K/ L 1.18-3.74 sfrk=849) MONOCYTES ABSOLUTE COUNT (BEAKER) (test 2.65 K/ L 0.24-0.36 radf=955) EOSINOPHILS ABSOLUTE COUNT (BEAKER) (test 0.07 K/ L 0.04-0.36 wgkn=541) BASOPHILS ABSOLUTE COUNT (BEAKER) (test 0.05 K/ L 0.01-0.08 naed=066) IMMATURE GRANULOCYTES-RELATIVE PERCENT (BEAKER) 1 % 0-1 (test rtjk=2263) (MANUAL DIFFERENTIAL)2017-11-08 10:40:00 Test Item Value Reference Range Comments TOTAL COUNTED (BEAKER) (test qlxv=6817) WBC MORPHOLOGY (BEAKER) (test nbwz=761) Normal LARGE PLT(BEAKER) (test ukfo=4317) Present POLYCHROMATOPHILLIC RBCS(BEAKER) (test wxog=207) 2+ moderate SICKLE CELLS (BEAKER) (test gkze=608) 3+ many TARGET CELLS (BEAKER) (test cebv=861) 1+ few CT, [id number] 08:29:00FINAL REPORT HISTORY : Abdominal pain, unspecified [...] MDReport Verified Date/Time: 11/08/2017 08:29:54 Reading Location: [facility] Reading Room - [place] [address] Electronically signed by: DAMI QUICK M.D. on11/08/2017 08:29 AMBASIC METABOLIC [id number] 08:14:00 Test Item Value Reference Range Comments SODIUM (BEAKER) (test 141 meq/L 136-145 knav=871) POTASSIUM (BEAKER) (test 4.4 meq/L 3.5-5.1 aqrr=913) CHLORIDE (BEAKER) (test 111 meq/L 98-107 nbpe=020) CO2 (BEAKER) (test 17 meq/L 22-29 hcfg=451) BLOOD UREA NITROGEN 37 mg/dL 7-21 (BEAKER) (test wfzt=698) CREATININE (BEAKER) (test 2.07 mg/dL 0.57-1.25 yfug=098) GLUCOSE RANDOM (BEAKER) 101 mg/dL 70-105 (test bpxd=425) CALCIUM (BEAKER) (test 8.9 mg/dL 8.4-10.2 vjse=718) EGFR (BEAKER) (test 32 mL/min/1.73 sq m ESTIMATED GFR IS NOT pmpu=7419) ACCURATE CREATININE CLEARANCE IN PREDICTING GLOMERULAR FILTRATION RATE. ESTIMATED GFR IS NOT APPLICABLE FOR DIALYSIS PATIENTS. COMPREHENSIVE METABOLIC [id number] 08:14:00 Test Item Value Reference Range Comments TOTAL PROTEIN (BEAKER) 8.6 gm/dL 6.0-8.3 (test zpzj=950) ALBUMIN (BEAKER) (test 3.4 g/dL 3.5-5.0 bryk=3674) ALKALINE PHOSPHATASE 155 U/L 40-150 (BEAKER) (test wsfy=468) BILIRUBIN TOTAL (BEAKER) 1.7 mg/dL 0.2-1.2 (test qjyo=096) SODIUM (BEAKER) (test 141 meq/L 136-145 qyqp=210) POTASSIUM (BEAKER) (test 4.4 meq/L 3.5-5.1 hrwl=867) CHLORIDE (BEAKER) (test 111 meq/L 98-107 trll=593) CO2 (BEAKER) (test 17 meq/L 22-29 hgon=921) BLOOD UREA NITROGEN 37 mg/dL 7-21 (BEAKER) (test rfjd=353) CREATININE (BEAKER) (test 2.07 mg/dL 0.57-1.25 nvyv=250) GLUCOSE RANDOM (BEAKER) 101 mg/dL 70-105 (test mqnj=939) CALCIUM (BEAKER) (test 8.9 mg/dL 8.4-10.2 kqhp=074) AST (SGOT) (BEAKER) (test 144 U/L 5-34 toid=329) ALT (SGPT) (BEAKER) (test 70 U/L 6-55 btvc=494) EGFR (BEAKER) (test 32 mL/min/1.73 sq m ESTIMATED GFR IS NOT kxzh=6049) ACCURATE CREATININE CLEARANCE IN PREDICTING GLOMERULAR FILTRATION RATE. ESTIMATED GFR IS NOT APPLICABLE FOR DIALYSIS PATIENTS. PROTEIN, RANDOM [id number] 07:49:00 Test Item Value Reference Range Comments PROTEIN, URINE (BEAKER) (test issl=8920) 24 mg/dL 0-14 CREATININE, RANDOM [id number] 07:47:00 Test Item Value Reference Range Comments CREATININE URINE (BEAKER) (test oujl=836) 46.0 mg/dL Reference Range: No NormalsSODIUM, RANDOM [id number] 07:47:00 Test Item Value Reference Range Comments SODIUM URINE (BEAKER) (test ikrt=657) 65 meq/L Reference Range: No NormalsU/S, ABDOMINAL, [id number] 19:58:00Reason for exam:->GRAYSON, abdominal painShould this be [...] MDReport Verified Date/Time: 11/07/2017 19:58:17 Reading Location: [address] Consult Reading Room LACTIC ACID, VENOUS, WHOLE [id number] 16:11:00 Test Item Value Reference Range Comments LACTATE BLOOD VENOUS (2) 0.9 mmol/L 0.5-2.2 Specimen slightly hemolyzed (BEAKER) (test lrsg=7256) Effective 12/22/2015: Units/Reference Range ChangeNew: 0.5-2.2 mmol/L Previous: 5 -20 mg/dLCBC W/PLT COUNT & AUTO [id number] 10:20:00 Test Item Value Reference Range Comments WHITE BLOOD CELL COUNT (BEAKER) (test lhuc=612) 23.2 K/ L 3.5-10.5 RED BLOOD CELL COUNT (BEAKER) (test fvnv=656) 1.84 M/ L 3.93-5.22 HEMOGLOBIN (BEAKER) (test ksik=630) 5.8 GM/DL 11.2-15.7 HEMATOCRIT (BEAKER) (test yqbr=309) 17.3 % 34.1-44.9 MEAN CORPUSCULAR VOLUME (BEAKER) (test ruua=532) 94.0 fL 79.4-94.8 MEAN CORPUSCULAR HEMOGLOBIN (BEAKER) (test 31.5 pg 25.6-32.2 dvhp=373) MEAN CORPUSCULAR HEMOGLOBIN CONC (BEAKER) (test 33.5 GM/DL 32.2-35.5 yomu=013) RED CELL DISTRIBUTION WIDTH (BEAKER) (test 24.1 % 11.7-14.4 ilgu=023) PLATELET COUNT (BEAKER) (test vews=988) 249 K/CU MM 150-450 MEAN PLATELET VOLUME (BEAKER) (test wrsv=384) 10.8 fL 9.4-12.3 NUCLEATED RED BLOOD CELLS (BEAKER) (test 48 /100 WBC 0-0 byrn=494) IMMATURE GRANULOCYTES-RELATIVE PERCENT (BEAKER) 2 % 0-1 (test sbhf=6296) (MANUAL DIFFERENTIAL)2017-11-07 10:20:00 Test Item Value Reference Range Comments NEUTROPHILS - REL (DIFF) (BEAKER) (test 68 % phwz=0200) LYMPHOCYTES - REL (DIFF) (BEAKER) (test 27 % znec=9354) MONOCYTES - REL (DIFF) (BEAKER) (test tdyr=7602) 5 % EOSINOPHILS - REL (DIFF) (BEAKER) (test 0 % wbir=8694) BASOPHILS - REL (DIFF) (BEAKER) (test booh=0719) 0 % NEUTROPHILS - ABS (DIFF) (BEAKER) (test 15.78 K/ L 1.80-8.00 djtf=1757) LYMPHOCYTES - ABS (DIFF) (BEAKER) (test 6.26 K/ L 1.48-4.50 ovcq=6636) MONOCYTES - ABS (DIFF) (BEAKER) (test fazw=9255) 1.16 K/ L 0.00-1.30 EOSINOPHILS - ABS (DIFF) (BEAKER) (test 0.00 K/ L 0.00-0.50 jikz=1904) BASOPHILS - ABS (DIFF) (BEAKER) (test fxul=0804) 0.00 K/ L 0.00-0.20 TOTAL COUNTED (BEAKER) (test egvd=0811) 100 MANUAL NRBC PER 100 CELLS (BEAKER) (test 51 /100 WBC 0-0 kzyc=1353) WBC MORPHOLOGY (BEAKER) (test cvlp=379) Normal PLT MORPHOLOGY (BEAKER) (test rheg=512) Normal ANISOCYTOSIS (BEAKER) (test wblh=971) 3+ many POLYCHROMATOPHILLIC RBCS(BEAKER) (test ehsw=420) 2+ moderate SICKLE CELLS (BEAKER) (test erub=503) 3+ many TARGET CELLS (BEAKER) (test ggpa=308) 1+ few BASIC METABOLIC [id number] 06:28:00 Test Item Value Reference Range Comments SODIUM (BEAKER) (test 132 meq/L 136-145 pvil=321) POTASSIUM (BEAKER) (test 4.4 meq/L 3.5-5.1 sqzo=403) CHLORIDE (BEAKER) (test 109 meq/L 98-107 pyfi=574) CO2 (BEAKER) (test 20 meq/L 22-29 rixf=429) BLOOD UREA NITROGEN 39 mg/dL 7-21 (BEAKER) (test ngun=409) CREATININE (BEAKER) (test 2.20 mg/dL 0.57-1.25 xhbr=261) GLUCOSE RANDOM (BEAKER) 123 mg/dL 70-105 (test ohhb=831) CALCIUM (BEAKER) (test 8.7 mg/dL 8.4-10.2 fjlt=381) EGFR (BEAKER) (test 30 mL/min/1.73 sq m ESTIMATED GFR IS NOT eqkz=9296) ACCURATE CREATININE CLEARANCE IN PREDICTING GLOMERULAR FILTRATION RATE. ESTIMATED GFR IS NOT APPLICABLE FOR DIALYSIS PATIENTS. COMPREHENSIVE METABOLIC [id number] 18:37:00 Test Item Value Reference Range Comments TOTAL PROTEIN (BEAKER) 8.5 gm/dL 6.0-8.3 (test tqob=040) ALBUMIN (BEAKER) (test 3.4 g/dL 3.5-5.0 esiv=7951) ALKALINE PHOSPHATASE 166 U/L 40-150 (BEAKER) (test zfam=659) BILIRUBIN TOTAL (BEAKER) 4.0 mg/dL 0.2-1.2 (test ajss=779) SODIUM (BEAKER) (test 142 meq/L 136-145 cemw=920) POTASSIUM (BEAKER) (test 4.7 meq/L 3.5-5.1 gtrm=024) CHLORIDE (BEAKER) (test 110 meq/L 98-107 ebyi=981) CO2 (BEAKER) (test 22 meq/L 22-29 dkyu=715) BLOOD UREA NITROGEN 35 mg/dL 7-21 (BEAKER) (test wgkp=586) CREATININE (BEAKER) (test 1.97 mg/dL 0.57-1.25 ifah=015) GLUCOSE RANDOM (BEAKER) 119 mg/dL 70-105 (test efuk=592) CALCIUM (BEAKER) (test 8.5 mg/dL 8.4-10.2 zrlj=716) AST (SGOT) (BEAKER) (test 278 U/L 5-34 xnmi=338) ALT (SGPT) (BEAKER) (test 92 U/L 6-55 kzti=553) EGFR (BEAKER) (test 34 mL/min/1.73 sq m ESTIMATED GFR IS NOT vout=7105) ACCURATE CREATININE CLEARANCE IN PREDICTING GLOMERULAR FILTRATION RATE. ESTIMATED GFR IS NOT APPLICABLE FOR DIALYSIS PATIENTS. Specimen slightly ictericCBC W/PLT COUNT & AUTO [id number] 14:59 :00 Test Item Value Reference Range Comments WHITE BLOOD CELL COUNT (BEAKER) (test nset=108) 24.3 K/ L 3.5-10.5 RED BLOOD CELL COUNT (BEAKER) (test glgq=440) 1.73 M/ L 3.93-5.22 HEMOGLOBIN (BEAKER) (test ouls=415) 5.5 GM/DL 11.2-15.7 HEMATOCRIT (BEAKER) (test bjku=802) 16.7 % 34.1-44.9 MEAN CORPUSCULAR VOLUME (BEAKER) (test wtsf=870) 96.5 fL 79.4-94.8 MEAN CORPUSCULAR HEMOGLOBIN (BEAKER) (test 31.8 pg 25.6-32.2 cdgm=140) MEAN CORPUSCULAR HEMOGLOBIN CONC (BEAKER) (test 32.9 GM/DL 32.2-35.5 elga=163) RED CELL DISTRIBUTION WIDTH (BEAKER) (test 25.8 % 11.7-14.4 pvzn=290) PLATELET COUNT (BEAKER) (test uubr=225) 259 K/CU MM 150-450 MEAN PLATELET VOLUME (BEAKER) (test rfmw=865) 11.1 fL 9.4-12.3 NUCLEATED RED BLOOD CELLS (BEAKER) (test 29 /100 WBC 0-0 rbqj=639) IMMATURE GRANULOCYTES-RELATIVE PERCENT (BEAKER) 2 % 0-1 (test ygza=1837) (MANUAL DIFFERENTIAL)2017-11-06 14:59:00 Test Item Value Reference Range Comments NEUTROPHILS - REL (DIFF) (BEAKER) (test 65 % vpvt=6762) LYMPHOCYTES - REL (DIFF) (BEAKER) (test 26 % gccn=9421) MONOCYTES - REL (DIFF) (BEAKER) (test rgzb=4622) 8 % MYELOCYTES-REL (DIFF) (BEAKER) (test frns=4798) 1 % 0-0 NEUTROPHILS - ABS (DIFF) (BEAKER) (test 15.80 K/ L 1.80-8.00 lnvk=2933) LYMPHOCYTES - ABS (DIFF) (BEAKER) (test 6.32 K/ L 1.48-4.50 xebr=8974) MONOCYTES - ABS (DIFF) (BEAKER) (test toeh=5407) 1.94 K/ L 0.00-1.30 MYELOCYTES-ABS (DIFF) (BEAKER) (test xltt=4107) 0.24 K/ L 0.00-0.00 TOTAL COUNTED (BEAKER) (test vxqx=6713) 100 MANUAL NRBC PER 100 CELLS (BEAKER) (test 34 /100 WBC 0-0 gybz=2883) WBC MORPHOLOGY (BEAKER) (test oaza=266) Normal PLT MORPHOLOGY (BEAKER) (test uwgm=908) Normal ANISOCYTOSIS (BEAKER) (test shaj=692) 3+ many MATTHEWS-JOLLY BODIES (BEAKER) (test erqk=813) Present POIKILOCYTES (BEAKER) (test svmm=993) 1+ few POLYCHROMATOPHILLIC RBCS(BEAKER) (test xcif=909) 2+ moderate SICKLE CELLS (BEAKER) (test ghpq=277) 3+ many BASIC METABOLIC [id number] 09:37:00 Test Item Value Reference Range Comments SODIUM (BEAKER) (test 139 meq/L 136-145 yvrs=770) POTASSIUM (BEAKER) (test 4.5 meq/L 3.5-5.1 curs=742) CHLORIDE (BEAKER) (test 107 meq/L 98-107 pueh=645) CO2 (BEAKER) (test 19 meq/L 22-29 nncl=866) BLOOD UREA NITROGEN 27 mg/dL 7-21 (BEAKER) (test btyh=793) CREATININE (BEAKER) (test 1.37 mg/dL 0.57-1.25 eoty=610) GLUCOSE RANDOM (BEAKER) 124 mg/dL 70-105 (test jyoe=214) CALCIUM (BEAKER) (test 8.2 mg/dL 8.4-10.2 jxro=813) EGFR (BEAKER) (test 52 mL/min/1.73 sq m ESTIMATED GFR IS NOT uuxs=8084) ACCURATE CREATININE CLEARANCE IN PREDICTING GLOMERULAR FILTRATION RATE. ESTIMATED GFR IS NOT APPLICABLE FOR DIALYSIS PATIENTS. Specimen slightly ictericURINALYSIS W/ [id number] 06:22:00 Test Item Value Reference Range Comments COLOR (BEAKER) (test epus=959) Brown CLARITY (BEAKER) (test ywbc=806) Cloudy SPECIFIC GRAVITY UA (BEAKER) (test 1.015 1.001-1.035 qvsw=367) PH UA (BEAKER) (test ftac=347) 5.5 5.0-8.0 PROTEIN UA (BEAKER) (test qwlv=888) 100 mg/dL Negative GLUCOSE UA (BEAKER) (test erte=588) Negative Negative KETONES UA (BEAKER) (test tquf=783) Negative Negative BILIRUBIN UA (BEAKER) (test bmkl=244) Positive Negative BLOOD UA (BEAKER) (test jbzh=248) Large Negative NITRITE UA (BEAKER) (test njln=345) Negative Negative LEUKOCYTE ESTERASE UA (BEAKER) (test Trace Negative qdfz=146) UROBILINOGEN UA (BEAKER) (test hqza=006) 4.0 mg/dL 0.2-1.0 RBC UA (BEAKER) (test lszq=191) 0 /HPF WBC UA (BEAKER) (test ddpa=835) 27 /HPF MUCUS (BEAKER) (test dhpt=0396) Few SQUAMOUS EPITHELIAL (BEAKER) (test 11 /HPF mbeu=296) SOURCE(BEAKER) (test rnut=4055) Urine, Clean Catch BASIC METABOLIC [id number] 10:56:00 Test Item Value Reference Range Comments SODIUM (BEAKER) (test 139 meq/L 136-145 qsdh=085) POTASSIUM (BEAKER) (test 4.2 meq/L 3.5-5.1 ckby=604) CHLORIDE (BEAKER) (test 104 meq/L 98-107 xshc=340) CO2 (BEAKER) (test 23 meq/L 22-29 fgkw=398) BLOOD UREA NITROGEN 9 mg/dL 7-21 (BEAKER) (test wqng=549) CREATININE (BEAKER) (test 0.66 mg/dL 0.57-1.25 ssyy=125) GLUCOSE RANDOM (BEAKER) 109 mg/dL 70-105 (test oeph=360) CALCIUM (BEAKER) (test 8.6 mg/dL 8.4-10.2 edrp=178) EGFR (BEAKER) (test 121 mL/min/1.73 sq m ESTIMATED GFR IS NOT ljhc=2752) ACCURATE CREATININE CLEARANCE IN PREDICTING GLOMERULAR FILTRATION RATE. ESTIMATED GFR IS NOT APPLICABLE FOR DIALYSIS PATIENTS. Specimen slightly ictericCBC W/PLT COUNT & AUTO [id number] 09:17 :00 Test Item Value Reference Range Comments WHITE BLOOD CELL COUNT (BEAKER) (test qiat=739) 18.2 K/ L 3.5-10.5 RED BLOOD CELL COUNT (BEAKER) (test bxvb=076) 2.05 M/ L 3.93-5.22 HEMOGLOBIN (BEAKER) (test pfeg=812) 6.4 GM/DL 11.2-15.7 HEMATOCRIT (BEAKER) (test ykxl=938) 19.9 % 34.1-44.9 MEAN CORPUSCULAR VOLUME (BEAKER) (test jxfk=969) 97.1 fL 79.4-94.8 MEAN CORPUSCULAR HEMOGLOBIN (BEAKER) (test 31.2 pg 25.6-32.2 gwnu=700) MEAN CORPUSCULAR HEMOGLOBIN CONC (BEAKER) (test 32.2 GM/DL 32.2-35.5 jpjx=501) RED CELL DISTRIBUTION WIDTH (BEAKER) (test 25.4 % 11.7-14.4 dbjp=724) PLATELET COUNT (BEAKER) (test ujys=401) 227 K/CU MM 150-450 MEAN PLATELET VOLUME (BEAKER) (test zcby=546) 10.4 fL 9.4-12.3 NUCLEATED RED BLOOD CELLS (BEAKER) (test 18 /100 WBC 0-0 qxak=521) NEUTROPHILS RELATIVE PERCENT (BEAKER) (test 57 % oulz=838) LYMPHOCYTES RELATIVE PERCENT (BEAKER) (test 24 % dwxs=229) MONOCYTES RELATIVE PERCENT (BEAKER) (test 15 % kdcn=387) EOSINOPHILS RELATIVE PERCENT (BEAKER) (test 3 % gcux=211) BASOPHILS RELATIVE PERCENT (BEAKER) (test 0 % jibp=512) NEUTROPHILS ABSOLUTE COUNT (BEAKER) (test 10.46 K/ L 1.56-6.13 nrfe=027) LYMPHOCYTES ABSOLUTE COUNT (BEAKER) (test 4.31 K/ L 1.18-3.74 cvjc=315) MONOCYTES ABSOLUTE COUNT (BEAKER) (test 2.72 K/ L 0.24-0.36 sdpx=991) EOSINOPHILS ABSOLUTE COUNT (BEAKER) (test 0.45 K/ L 0.04-0.36 qwma=733) BASOPHILS ABSOLUTE COUNT (BEAKER) (test 0.07 K/ L 0.01-0.08 uvgj=409) IMMATURE GRANULOCYTES-RELATIVE PERCENT (BEAKER) 1 % 0-1 (test zmvv=3459) (MANUAL DIFFERENTIAL)2017-11-05 09:17:00 Test Item Value Reference Range Comments TOTAL COUNTED (BEAKER) (test jvai=4750) WBC MORPHOLOGY (BEAKER) (test oxut=463) Normal PLT MORPHOLOGY (BEAKER) (test xajf=999) Normal ANISOCYTOSIS (BEAKER) (test segq=295) 2+ moderate POLYCHROMATOPHILLIC RBCS(BEAKER) (test whjg=434) 2+ moderate SICKLE CELLS (BEAKER) (test jkdk=210) 2+ moderate TARGET CELLS (BEAKER) (test cbfl=525) 2+ moderate CREATINE KINASE (CK), TOTAL AND [id number] 22:01:00 Test Item Value Reference Range Comments CREATINE KINASE TOTAL (BEAKER) (test 10 U/L 29-200 npow=775) CREATINE KINASE-MB (BEAKER) (test 0.1 ng/mL 0.0-6.6 jngy=804) CREATINE KINASE-MB INDEX (BEAKER) (test 1.0 % Unable to Calculate remf=784) CK-MB Reference Range:<6.7 Normal6.7-10.0 Borderline>10.0 AbnormalTROPONIN [id number] 21:16:00 Test Item Value Reference Range Comments TROPONIN I (BEAKER) (test tgzb=713) < ng/mL 0.00-0.03 Troponin I (TnI) levels [...] and persistent tachyarrhythmia.CBC W/PLT COUNT & AUTO [id number] 06:49:00 Test Item Value Reference Range Comments WHITE BLOOD CELL COUNT (BEAKER) (test mixu=121) 13.3 K/ L 3.5-10.5 RED BLOOD CELL COUNT (BEAKER) (test trbh=566) 2.18 M/ L 3.93-5.22 HEMOGLOBIN (BEAKER) (test znin=799) 6.8 GM/DL 11.2-15.7 HEMATOCRIT (BEAKER) (test ajig=055) 21.5 % 34.1-44.9 MEAN CORPUSCULAR VOLUME (BEAKER) (test yaud=737) 98.6 fL 79.4-94.8 MEAN CORPUSCULAR HEMOGLOBIN (BEAKER) (test 31.2 pg 25.6-32.2 flmh=025) MEAN CORPUSCULAR HEMOGLOBIN CONC (BEAKER) (test 31.6 GM/DL 32.2-35.5 snqj=738) RED CELL DISTRIBUTION WIDTH (BEAKER) (test 21.1 % 11.7-14.4 zhbu=546) PLATELET COUNT (BEAKER) (test wliq=534) 192 K/CU MM 150-450 MEAN PLATELET VOLUME (BEAKER) (test fctw=032) 11.4 fL 9.4-12.3 NUCLEATED RED BLOOD CELLS (BEAKER) (test 1 /100 WBC 0-0 vpbq=745) NEUTROPHILS RELATIVE PERCENT (BEAKER) (test 51 % mlfk=075) LYMPHOCYTES RELATIVE PERCENT (BEAKER) (test 30 % wref=606) MONOCYTES RELATIVE PERCENT (BEAKER) (test 16 % fcoo=756) EOSINOPHILS RELATIVE PERCENT (BEAKER) (test 2 % jxrg=671) BASOPHILS RELATIVE PERCENT (BEAKER) (test 0 % skig=750) NEUTROPHILS ABSOLUTE COUNT (BEAKER) (test 6.84 K/ L 1.56-6.13 epzm=387) LYMPHOCYTES ABSOLUTE COUNT (BEAKER) (test 4.06 K/ L 1.18-3.74 gwya=125) MONOCYTES ABSOLUTE COUNT (BEAKER) (test 2.12 K/ L 0.24-0.36 lppz=923) EOSINOPHILS ABSOLUTE COUNT (BEAKER) (test 0.26 K/ L 0.04-0.36 fwow=893) BASOPHILS ABSOLUTE COUNT (BEAKER) (test 0.02 K/ L 0.01-0.08 cahq=044) IMMATURE GRANULOCYTES-RELATIVE PERCENT (BEAKER) 0 % 0-1 (test kdmm=8617) BASIC METABOLIC [id number] 07:06:00 Test Item Value Reference Range Comments SODIUM (BEAKER) (test 138 meq/L 136-145 xggx=592) POTASSIUM (BEAKER) (test 4.2 meq/L 3.5-5.1 obrz=348) CHLORIDE (BEAKER) (test 103 meq/L 98-107 rmgu=764) CO2 (BEAKER) (test 28 meq/L 22-29 ijav=996) BLOOD UREA NITROGEN 11 mg/dL 7-21 (BEAKER) (test kqsc=407) CREATININE (BEAKER) (test 0.55 mg/dL 0.57-1.25 zxoi=185) GLUCOSE RANDOM (BEAKER) 95 mg/dL 70-105 (test dfca=033) CALCIUM (BEAKER) (test 9.5 mg/dL 8.4-10.2 gjfb=567) EGFR (BEAKER) (test 150 mL/min/1.73 sq m ESTIMATED GFR IS NOT wlrl=1161) ACCURATE CREATININE CLEARANCE IN PREDICTING GLOMERULAR FILTRATION RATE. ESTIMATED GFR IS NOT APPLICABLE FOR DIALYSIS PATIENTS. CBC W/PLT COUNT & AUTO [id number] 06:48:00 Test Item Value Reference Range Comments WHITE BLOOD CELL COUNT (BEAKER) (test hupc=537) 12.8 K/ L 3.5-10.5 RED BLOOD CELL COUNT (BEAKER) (test afdr=214) 2.22 M/ L 3.93-5.22 HEMOGLOBIN (BEAKER) (test aohg=345) 7.2 GM/DL 11.2-15.7 HEMATOCRIT (BEAKER) (test hjiz=730) 21.9 % 34.1-44.9 MEAN CORPUSCULAR VOLUME (BEAKER) (test zdpb=030) 98.6 fL 79.4-94.8 MEAN CORPUSCULAR HEMOGLOBIN (BEAKER) (test 32.4 pg 25.6-32.2 xdyp=669) MEAN CORPUSCULAR HEMOGLOBIN CONC (BEAKER) (test 32.9 GM/DL 32.2-35.5 rvoy=227) RED CELL DISTRIBUTION WIDTH (BEAKER) (test 21.2 % 11.7-14.4 qqqo=769) PLATELET COUNT (BEAKER) (test gdnx=486) 176 K/CU MM 150-450 MEAN PLATELET VOLUME (BEAKER) (test mfwy=327) 11.2 fL 9.4-12.3 NUCLEATED RED BLOOD CELLS (BEAKER) (test 5 /100 WBC 0-0 fnjp=333) NEUTROPHILS RELATIVE PERCENT (BEAKER) (test 49 % jxhu=435) LYMPHOCYTES RELATIVE PERCENT (BEAKER) (test 31 % qbgd=117) MONOCYTES RELATIVE PERCENT (BEAKER) (test 19 % wtni=994) EOSINOPHILS RELATIVE PERCENT (BEAKER) (test 2 % bqgj=574) BASOPHILS RELATIVE PERCENT (BEAKER) (test 0 % hehf=215) NEUTROPHILS ABSOLUTE COUNT (BEAKER) (test 6.23 K/ L 1.56-6.13 yacp=047) LYMPHOCYTES ABSOLUTE COUNT (BEAKER) (test 3.90 K/ L 1.18-3.74 agvf=706) MONOCYTES ABSOLUTE COUNT (BEAKER) (test 2.37 K/ L 0.24-0.36 owsm=138) EOSINOPHILS ABSOLUTE COUNT (BEAKER) (test 0.24 K/ L 0.04-0.36 ehjv=698) BASOPHILS ABSOLUTE COUNT (BEAKER) (test 0.01 K/ L 0.01-0.08 orfa=682) IMMATURE GRANULOCYTES-RELATIVE PERCENT (BEAKER) 0 % 0-1 (test zhze=4511) (MANUAL DIFFERENTIAL)2017-06-03 06:48:00 Test Item Value Reference Range Comments TOTAL COUNTED (BEAKER) (test ybob=4357) WBC MORPHOLOGY (BEAKER) (test epnz=439) Normal PLT MORPHOLOGY (BEAKER) (test wzit=791) Normal ANISOCYTOSIS (BEAKER) (test xefd=324) 3+ many MATTHEWS-JOLLY BODIES (BEAKER) (test dmhh=287) Present MACROCYTES (BEAKER) (test zwsw=287) 3+ many SICKLE CELLS (BEAKER) (test mttp=609) 1+ few TARGET CELLS (BEAKER) (test itqg=874) 1+ few BASIC METABOLIC [id number] 07:33:00 Test Item Value Reference Range Comments SODIUM (BEAKER) (test 138 meq/L 136-145 qiny=100) POTASSIUM (BEAKER) (test 4.5 meq/L 3.5-5.1 enay=568) CHLORIDE (BEAKER) (test 102 meq/L 98-107 ghbh=361) CO2 (BEAKER) (test 27 meq/L 22-29 obrq=893) BLOOD UREA NITROGEN 11 mg/dL 7-21 (BEAKER) (test reat=130) CREATININE (BEAKER) (test 0.55 mg/dL 0.57-1.25 ocer=646) GLUCOSE RANDOM (BEAKER) 85 mg/dL 70-105 (test gddr=956) CALCIUM (BEAKER) (test 9.5 mg/dL 8.4-10.2 iwkp=004) EGFR (BEAKER) (test 150 mL/min/1.73 sq m ESTIMATED GFR IS NOT ddfo=1851) ACCURATE CREATININE CLEARANCE IN PREDICTING GLOMERULAR FILTRATION RATE. ESTIMATED GFR IS NOT APPLICABLE FOR DIALYSIS PATIENTS. CBC W/PLT COUNT & AUTO [id number] 07:13:00 Test Item Value Reference Range Comments WHITE BLOOD CELL COUNT (BEAKER) (test viwo=364) 14.2 K/ L 3.5-10.5 RED BLOOD CELL COUNT (BEAKER) (test ajfw=927) 2.39 M/ L 3.93-5.22 HEMOGLOBIN (BEAKER) (test hijm=215) 7.6 GM/DL 11.2-15.7 HEMATOCRIT (BEAKER) (test ntrz=471) 23.5 % 34.1-44.9 MEAN CORPUSCULAR VOLUME (BEAKER) (test rkid=662) 98.3 fL 79.4-94.8 MEAN CORPUSCULAR HEMOGLOBIN (BEAKER) (test 31.8 pg 25.6-32.2 fqsx=700) MEAN CORPUSCULAR HEMOGLOBIN CONC (BEAKER) (test 32.3 GM/DL 32.2-35.5 hsxe=972) RED CELL DISTRIBUTION WIDTH (BEAKER) (test 21.1 % 11.7-14.4 zqru=914) PLATELET COUNT (BEAKER) (test sgtt=597) 173 K/CU MM 150-450 MEAN PLATELET VOLUME (BEAKER) (test idef=424) 11.7 fL 9.4-12.3 NUCLEATED RED BLOOD CELLS (BEAKER) (test 11 /100 WBC 0-0 dimi=061) NEUTROPHILS RELATIVE PERCENT (BEAKER) (test 53 % sspk=811) LYMPHOCYTES RELATIVE PERCENT (BEAKER) (test 27 % heuf=919) MONOCYTES RELATIVE PERCENT (BEAKER) (test 18 % urrz=963) EOSINOPHILS RELATIVE PERCENT (BEAKER) (test 1 % hhws=089) BASOPHILS RELATIVE PERCENT (BEAKER) (test 0 % jzsl=660) NEUTROPHILS ABSOLUTE COUNT (BEAKER) (test 7.56 K/ L 1.56-6.13 rlms=400) LYMPHOCYTES ABSOLUTE COUNT (BEAKER) (test 3.89 K/ L 1.18-3.74 qblk=100) MONOCYTES ABSOLUTE COUNT (BEAKER) (test 2.52 K/ L 0.24-0.36 pizp=574) EOSINOPHILS ABSOLUTE COUNT (BEAKER) (test 0.20 K/ L 0.04-0.36 qscq=923) BASOPHILS ABSOLUTE COUNT (BEAKER) (test 0.02 K/ L 0.01-0.08 vkik=837) IMMATURE GRANULOCYTES-RELATIVE PERCENT (BEAKER) 0 % 0-1 (test rgxw=5963) CBC W/PLT COUNT & AUTO [id number] 16:45:00 Test Item Value Reference Range Comments WHITE BLOOD CELL COUNT (BEAKER) (test cefs=383) 15.1 K/ L 3.5-10.5 RED BLOOD CELL COUNT (BEAKER) (test ogqa=356) 2.36 M/ L 3.93-5.22 HEMOGLOBIN (BEAKER) (test oapz=063) 7.5 GM/DL 11.2-15.7 HEMATOCRIT (BEAKER) (test wfqs=807) 23.0 % 34.1-44.9 MEAN CORPUSCULAR VOLUME (BEAKER) (test cxrc=016) 97.5 fL 79.4-94.8 MEAN CORPUSCULAR HEMOGLOBIN (BEAKER) (test 31.8 pg 25.6-32.2 jqla=465) MEAN CORPUSCULAR HEMOGLOBIN CONC (BEAKER) (test 32.6 GM/DL 32.2-35.5 cpmu=733) RED CELL DISTRIBUTION WIDTH (BEAKER) (test 20.7 % 11.7-14.4 tcgr=022) PLATELET COUNT (BEAKER) (test qoqk=920) 179 K/CU MM 150-450 MEAN PLATELET VOLUME (BEAKER) (test xwev=815) 11.9 fL 9.4-12.3 NUCLEATED RED BLOOD CELLS (BEAKER) (test 12 /100 WBC 0-0 cjmi=416) NEUTROPHILS RELATIVE PERCENT (BEAKER) (test 53 % jxzh=185) LYMPHOCYTES RELATIVE PERCENT (BEAKER) (test 27 % dlhz=856) MONOCYTES RELATIVE PERCENT (BEAKER) (test 18 % yoms=888) EOSINOPHILS RELATIVE PERCENT (BEAKER) (test 2 % qcmu=755) BASOPHILS RELATIVE PERCENT (BEAKER) (test 0 % lezq=117) NEUTROPHILS ABSOLUTE COUNT (BEAKER) (test 8.03 K/ L 1.56-6.13 eyhh=754) LYMPHOCYTES ABSOLUTE COUNT (BEAKER) (test 3.99 K/ L 1.18-3.74 fuwh=736) MONOCYTES ABSOLUTE COUNT (BEAKER) (test 2.65 K/ L 0.24-0.36 fkkr=076) EOSINOPHILS ABSOLUTE COUNT (BEAKER) (test 0.31 K/ L 0.04-0.36 tjma=188) BASOPHILS ABSOLUTE COUNT (BEAKER) (test 0.02 K/ L 0.01-0.08 vrsy=470) IMMATURE GRANULOCYTES-RELATIVE PERCENT (BEAKER) 0 % 0-1 (test zury=1099) BASIC METABOLIC [id number] 06:17:00 Test Item Value Reference Range Comments SODIUM (BEAKER) (test 138 meq/L 136-145 ryis=967) POTASSIUM (BEAKER) (test 4.1 meq/L 3.5-5.1 lufd=440) CHLORIDE (BEAKER) (test 100 meq/L 98-107 kqjw=246) CO2 (BEAKER) (test 30 meq/L 22-29 gduo=245) BLOOD UREA NITROGEN 11 mg/dL 7-21 (BEAKER) (test ekyt=421) CREATININE (BEAKER) (test 0.58 mg/dL 0.57-1.25 zlls=985) GLUCOSE RANDOM (BEAKER) 90 mg/dL 70-105 (test rqlz=559) CALCIUM (BEAKER) (test 9.4 mg/dL 8.4-10.2 roty=070) EGFR (BEAKER) (test 141 mL/min/1.73 sq m ESTIMATED GFR IS NOT ylfz=3648) ACCURATE CREATININE CLEARANCE IN PREDICTING GLOMERULAR FILTRATION RATE. ESTIMATED GFR IS NOT APPLICABLE FOR DIALYSIS PATIENTS. CBC W/PLT COUNT & AUTO [id number] 13:41:00 Test Item Value Reference Range Comments WHITE BLOOD CELL COUNT (BEAKER) (test ssru=460) 13.9 K/ L 3.5-10.5 RED BLOOD CELL COUNT (BEAKER) (test zqdl=423) 2.38 M/ L 3.93-5.22 HEMOGLOBIN (BEAKER) (test iypi=952) 7.5 GM/DL 11.2-15.7 HEMATOCRIT (BEAKER) (test leoh=756) 23.2 % 34.1-44.9 MEAN CORPUSCULAR VOLUME (BEAKER) (test cemf=997) 97.5 fL 79.4-94.8 MEAN CORPUSCULAR HEMOGLOBIN (BEAKER) (test 31.5 pg 25.6-32.2 yovd=227) MEAN CORPUSCULAR HEMOGLOBIN CONC (BEAKER) (test 32.3 GM/DL 32.2-35.5 udsc=532) RED CELL DISTRIBUTION WIDTH (BEAKER) (test 20.2 % 11.7-14.4 hjwh=964) PLATELET COUNT (BEAKER) (test iiks=482) 171 K/CU MM 150-450 MEAN PLATELET VOLUME (BEAKER) (test uoca=776) 12.0 fL 9.4-12.3 NUCLEATED RED BLOOD CELLS (BEAKER) (test 8 /100 WBC 0-0 ybbt=973) NEUTROPHILS RELATIVE PERCENT (BEAKER) (test 57 % pbjq=270) LYMPHOCYTES RELATIVE PERCENT (BEAKER) (test 23 % qoxd=599) MONOCYTES RELATIVE PERCENT (BEAKER) (test 18 % coqs=675) EOSINOPHILS RELATIVE PERCENT (BEAKER) (test 2 % hcjx=610) BASOPHILS RELATIVE PERCENT (BEAKER) (test 0 % axmt=027) NEUTROPHILS ABSOLUTE COUNT (BEAKER) (test 7.89 K/ L 1.56-6.13 vuzr=128) LYMPHOCYTES ABSOLUTE COUNT (BEAKER) (test 3.13 K/ L 1.18-3.74 rlbm=379) MONOCYTES ABSOLUTE COUNT (BEAKER) (test 2.52 K/ L 0.24-0.36 nhck=472) EOSINOPHILS ABSOLUTE COUNT (BEAKER) (test 0.25 K/ L 0.04-0.36 ixym=374) BASOPHILS ABSOLUTE COUNT (BEAKER) (test 0.02 K/ L 0.01-0.08 iobn=642) IMMATURE GRANULOCYTES-RELATIVE PERCENT (BEAKER) 1 % 0-1 (test dgzh=4905) (MANUAL DIFFERENTIAL)2017-05-31 13:41:00 Test Item Value Reference Range Comments TOTAL COUNTED (BEAKER) (test lcvz=0399) WBC MORPHOLOGY (BEAKER) (test ovsw=968) Normal PLT MORPHOLOGY (BEAKER) (test cief=278) Normal POLYCHROMATOPHILLIC RBCS(BEAKER) (test lvmt=831) 2+ moderate SICKLE CELLS (BEAKER) (test rmcv=019) 1+ few TARGET CELLS (BEAKER) (test hwtg=885) 2+ moderate URINE [id number] 12:19:00 Test Item Value Reference Range Comments CULTURE (BEAKER) (test 20-29,000 col/mL skin valentino wjzh=2780) BASIC METABOLIC [id number] 07:23:00 Test Item Value Reference Range Comments SODIUM (BEAKER) (test 136 meq/L 136-145 vlgu=307) POTASSIUM (BEAKER) (test 3.9 meq/L 3.5-5.1 tppi=319) CHLORIDE (BEAKER) (test 97 meq/L 98-107 obcg=355) CO2 (BEAKER) (test 30 meq/L 22-29 hrle=430) BLOOD UREA NITROGEN 9 mg/dL 7-21 (BEAKER) (test neid=518) CREATININE (BEAKER) (test 0.56 mg/dL 0.57-1.25 jvtq=668) GLUCOSE RANDOM (BEAKER) 100 mg/dL 70-105 (test fhid=285) CALCIUM (BEAKER) (test 9.5 mg/dL 8.4-10.2 qkqh=594) EGFR (BEAKER) (test 147 mL/min/1.73 sq m ESTIMATED GFR IS NOT dwak=0493) ACCURATE CREATININE CLEARANCE IN PREDICTING GLOMERULAR FILTRATION RATE. ESTIMATED GFR IS NOT APPLICABLE FOR DIALYSIS PATIENTS. U/S, ABDOMINAL, [id number] 23:52:00Reason for exam:->painShould this be performed at [...] post splenectomy and cholecystectomy. Signed: Jamey Gay [facility]ITALeport Verified Date/Time: 05/30/2017 23:52:25 Reading Location: [facility] [id number] Consult Reading Room 11:52 PMCBC W/PLT COUNT & AUTO [id number] 17:30:00 Test Item Value Reference Range Comments WHITE BLOOD CELL COUNT (BEAKER) (test tlze=945) 14.0 K/ L 3.5-10.5 RED BLOOD CELL COUNT (BEAKER) (test lyso=647) 2.41 M/ L 3.93-5.22 HEMOGLOBIN (BEAKER) (test vlyp=350) 7.7 GM/DL 11.2-15.7 HEMATOCRIT (BEAKER) (test hpay=882) 23.3 % 34.1-44.9 MEAN CORPUSCULAR VOLUME (BEAKER) (test dgqo=352) 96.7 fL 79.4-94.8 MEAN CORPUSCULAR HEMOGLOBIN (BEAKER) (test 32.0 pg 25.6-32.2 tlvo=168) MEAN CORPUSCULAR HEMOGLOBIN CONC (BEAKER) (test 33.0 GM/DL 32.2-35.5 fdnk=015) RED CELL DISTRIBUTION WIDTH (BEAKER) (test 20.0 % 11.7-14.4 alzx=494) PLATELET COUNT (BEAKER) (test nrug=452) 163 K/CU MM 150-450 MEAN PLATELET VOLUME (BEAKER) (test xdrx=010) 11.7 fL 9.4-12.3 NUCLEATED RED BLOOD CELLS (BEAKER) (test 4 /100 WBC 0-0 svnz=884) NEUTROPHILS RELATIVE PERCENT (BEAKER) (test 47 % wmxy=561) LYMPHOCYTES RELATIVE PERCENT (BEAKER) (test 32 % ryef=440) MONOCYTES RELATIVE PERCENT (BEAKER) (test 18 % ythw=906) EOSINOPHILS RELATIVE PERCENT (BEAKER) (test 3 % kxvq=378) BASOPHILS RELATIVE PERCENT (BEAKER) (test 0 % gisg=413) NEUTROPHILS ABSOLUTE COUNT (BEAKER) (test 6.58 K/ L 1.56-6.13 wjcj=607) LYMPHOCYTES ABSOLUTE COUNT (BEAKER) (test 4.40 K/ L 1.18-3.74 ditx=921) MONOCYTES ABSOLUTE COUNT (BEAKER) (test 2.49 K/ L 0.24-0.36 ajdo=328) EOSINOPHILS ABSOLUTE COUNT (BEAKER) (test 0.44 K/ L 0.04-0.36 idwy=429) BASOPHILS ABSOLUTE COUNT (BEAKER) (test 0.02 K/ L 0.01-0.08 ynkd=633) IMMATURE GRANULOCYTES-RELATIVE PERCENT (BEAKER) 0 % 0-1 (test kufj=6392) BASIC METABOLIC [id number] 06:33:00 Test Item Value Reference Range Comments SODIUM (BEAKER) (test 139 meq/L 136-145 ppfs=563) POTASSIUM (BEAKER) (test 4.0 meq/L 3.5-5.1 ikjk=030) CHLORIDE (BEAKER) (test 102 meq/L 98-107 fqxq=466) CO2 (BEAKER) (test 28 meq/L 22-29 nzyj=464) BLOOD UREA NITROGEN 7 mg/dL 7-21 (BEAKER) (test rrlm=525) CREATININE (BEAKER) (test 0.54 mg/dL 0.57-1.25 mici=529) GLUCOSE RANDOM (BEAKER) 95 mg/dL 70-105 (test qusv=379) CALCIUM (BEAKER) (test 9.6 mg/dL 8.4-10.2 idxj=554) EGFR (BEAKER) (test 153 mL/min/1.73 sq m ESTIMATED GFR IS NOT boaw=3507) ACCURATE CREATININE CLEARANCE IN PREDICTING GLOMERULAR FILTRATION RATE. ESTIMATED GFR IS NOT APPLICABLE FOR DIALYSIS PATIENTS. CBC W/PLT COUNT & AUTO [id number] 13:41:00 Test Item Value Reference Range Comments WHITE BLOOD CELL COUNT (BEAKER) (test lkfm=433) 14.6 K/ L 3.5-10.5 RED BLOOD CELL COUNT (BEAKER) (test xsbz=318) 1.85 M/ L 3.93-5.22 HEMOGLOBIN (BEAKER) (test tglo=404) 5.9 GM/DL 11.2-15.7 HEMATOCRIT (BEAKER) (test lmem=091) 18.5 % 34.1-44.9 MEAN CORPUSCULAR VOLUME (BEAKER) (test phej=100) 100.0 fL 79.4-94.8 MEAN CORPUSCULAR HEMOGLOBIN (BEAKER) (test 31.9 pg 25.6-32.2 cdnw=720) MEAN CORPUSCULAR HEMOGLOBIN CONC (BEAKER) (test 31.9 GM/DL 32.2-35.5 sdkb=140) RED CELL DISTRIBUTION WIDTH (BEAKER) (test 21.0 % 11.7-14.4 lvlp=091) PLATELET COUNT (BEAKER) (test urhp=343) 169 K/CU MM 150-450 MEAN PLATELET VOLUME (BEAKER) (test hvdf=432) 12.1 fL 9.4-12.3 NUCLEATED RED BLOOD CELLS (BEAKER) (test 3 /100 WBC 0-0 vdcv=127) NEUTROPHILS RELATIVE PERCENT (BEAKER) (test 52 % mmrz=188) LYMPHOCYTES RELATIVE PERCENT (BEAKER) (test 28 % qmfo=036) MONOCYTES RELATIVE PERCENT (BEAKER) (test 16 % ivfu=236) EOSINOPHILS RELATIVE PERCENT (BEAKER) (test 4 % wirq=389) BASOPHILS RELATIVE PERCENT (BEAKER) (test 0 % dqmy=882) NEUTROPHILS ABSOLUTE COUNT (BEAKER) (test 7.50 K/ L 1.56-6.13 voij=415) LYMPHOCYTES ABSOLUTE COUNT (BEAKER) (test 4.08 K/ L 1.18-3.74 nrdw=104) MONOCYTES ABSOLUTE COUNT (BEAKER) (test 2.34 K/ L 0.24-0.36 zbkr=577) EOSINOPHILS ABSOLUTE COUNT (BEAKER) (test 0.56 K/ L 0.04-0.36 rwir=744) BASOPHILS ABSOLUTE COUNT (BEAKER) (test 0.02 K/ L 0.01-0.08 evqi=348) IMMATURE GRANULOCYTES-RELATIVE PERCENT (BEAKER) 0 % 0-1 (test ovur=3643) (MANUAL DIFFERENTIAL)2017-05-29 13:41:00 Test Item Value Reference Range Comments TOTAL COUNTED (BEAKER) (test tsrr=0408) WBC MORPHOLOGY (BEAKER) (test uvwl=203) Normal PLT MORPHOLOGY (BEAKER) (test qmbl=227) Normal POLYCHROMATOPHILLIC RBCS(BEAKER) (test tcsj=062) 2+ moderate SICKLE CELLS (BEAKER) (test dpck=715) 1+ few TARGET CELLS (BEAKER) (test fmgo=261) 2+ moderate BASIC METABOLIC [id number] 07:38:00 Test Item Value Reference Range Comments SODIUM (BEAKER) (test 140 meq/L 136-145 ssay=596) POTASSIUM (BEAKER) (test 3.9 meq/L 3.5-5.1 qsgv=013) CHLORIDE (BEAKER) (test 104 meq/L 98-107 lxpt=625) CO2 (BEAKER) (test 28 meq/L 22-29 ynlp=455) BLOOD UREA NITROGEN 8 mg/dL 7-21 (BEAKER) (test vjry=762) CREATININE (BEAKER) (test 0.56 mg/dL 0.57-1.25 gnyl=791) GLUCOSE RANDOM (BEAKER) 129 mg/dL 70-105 (test hbll=257) CALCIUM (BEAKER) (test 9.2 mg/dL 8.4-10.2 mvqu=971) EGFR (BEAKER) (test 147 mL/min/1.73 sq m ESTIMATED GFR IS NOT ehsn=3180) ACCURATE CREATININE CLEARANCE IN PREDICTING GLOMERULAR FILTRATION RATE. ESTIMATED GFR IS NOT APPLICABLE FOR DIALYSIS PATIENTS. CBC W/PLT COUNT & AUTO [id number] 15:40:00 Test Item Value Reference Range Comments WHITE BLOOD CELL COUNT (BEAKER) (test quxz=555) 15.5 K/ L 3.5-10.5 RED BLOOD CELL COUNT (BEAKER) (test xvnj=387) 2.13 M/ L 3.93-5.22 HEMOGLOBIN (BEAKER) (test yyzw=750) 6.8 GM/DL 11.2-15.7 HEMATOCRIT (BEAKER) (test viks=313) 21.1 % 34.1-44.9 MEAN CORPUSCULAR VOLUME (BEAKER) (test mszd=926) 99.1 fL 79.4-94.8 MEAN CORPUSCULAR HEMOGLOBIN (BEAKER) (test 31.9 pg 25.6-32.2 wlxm=738) MEAN CORPUSCULAR HEMOGLOBIN CONC (BEAKER) (test 32.2 GM/DL 32.2-35.5 hotc=818) RED CELL DISTRIBUTION WIDTH (BEAKER) (test 20.8 % 11.7-14.4 wzzt=805) PLATELET COUNT (BEAKER) (test psbo=048) 178 K/CU MM 150-450 MEAN PLATELET VOLUME (BEAKER) (test llgz=462) 11.9 fL 9.4-12.3 NUCLEATED RED BLOOD CELLS (BEAKER) (test 2 /100 WBC 0-0 niww=939) NEUTROPHILS RELATIVE PERCENT (BEAKER) (test 47 % ltyt=219) LYMPHOCYTES RELATIVE PERCENT (BEAKER) (test 34 % idwe=521) MONOCYTES RELATIVE PERCENT (BEAKER) (test 16 % opvv=152) EOSINOPHILS RELATIVE PERCENT (BEAKER) (test 3 % rapy=750) BASOPHILS RELATIVE PERCENT (BEAKER) (test 0 % atap=641) NEUTROPHILS ABSOLUTE COUNT (BEAKER) (test 7.20 K/ L 1.56-6.13 ffoo=246) LYMPHOCYTES ABSOLUTE COUNT (BEAKER) (test 5.22 K/ L 1.18-3.74 cyrd=795) MONOCYTES ABSOLUTE COUNT (BEAKER) (test 2.50 K/ L 0.24-0.36 fnjr=553) EOSINOPHILS ABSOLUTE COUNT (BEAKER) (test 0.48 K/ L 0.04-0.36 hctu=876) BASOPHILS ABSOLUTE COUNT (BEAKER) (test 0.02 K/ L 0.01-0.08 tlas=540) IMMATURE GRANULOCYTES-RELATIVE PERCENT (BEAKER) 1 % 0-1 (test aujj=0858) (MANUAL DIFFERENTIAL)2017-05-28 15:40:00 Test Item Value Reference Range Comments TOTAL COUNTED (BEAKER) (test owtq=0178) WBC MORPHOLOGY (BEAKER) (test bxzk=423) Normal PLT MORPHOLOGY (BEAKER) (test obaj=990) Normal ANISOCYTOSIS (BEAKER) (test xqzl=819) 2+ moderate POLYCHROMATOPHILLIC RBCS(BEAKER) (test wqkn=323) 2+ moderate SICKLE CELLS (BEAKER) (test ssdq=667) 1+ few TARGET CELLS (BEAKER) (test qbyi=663) 2+ moderate URINALYSIS W/ [id number] 15:13:00 Test Item Value Reference Range Comments COLOR (BEAKER) (test uvkt=610) Yellow CLARITY (BEAKER) (test hjhp=553) Clear SPECIFIC GRAVITY UA (BEAKER) (test acza=475) 1.008 1.001-1.035 PH UA (BEAKER) (test rbbc=023) 6.0 5.0-8.0 PROTEIN UA (BEAKER) (test wlba=227) Negative Negative GLUCOSE UA (BEAKER) (test lqdq=700) Negative Negative KETONES UA (BEAKER) (test ppoj=415) Negative Negative BILIRUBIN UA (BEAKER) (test yfpk=915) Negative Negative BLOOD UA (BEAKER) (test zdhn=494) Negative Negative NITRITE UA (BEAKER) (test zevk=437) Negative Negative LEUKOCYTE ESTERASE UA (BEAKER) (test jsdt=391) Negative Negative UROBILINOGEN UA (BEAKER) (test kqdb=320) 0.2 mg/dL 0.2-1.0 RBC UA (BEAKER) (test jout=682) < /HPF WBC UA (BEAKER) (test kyug=086) 2 /HPF MUCUS (BEAKER) (test ajyh=8582) Rare SQUAMOUS EPITHELIAL (BEAKER) (test gyhv=547) 5 /HPF SOURCE(BEAKER) (test thjr=1901) Urine, Voided BASIC METABOLIC [id number] 06:26:00 Test Item Value Reference Range Comments SODIUM (BEAKER) (test 139 meq/L 136-145 zicg=739) POTASSIUM (BEAKER) (test 3.8 meq/L 3.5-5.1 jjef=185) CHLORIDE (BEAKER) (test 104 meq/L 98-107 ncun=684) CO2 (BEAKER) (test 30 meq/L 22-29 gsat=142) BLOOD UREA NITROGEN 6 mg/dL 7-21 (BEAKER) (test kugq=062) CREATININE (BEAKER) (test 0.56 mg/dL 0.57-1.25 kaco=386) GLUCOSE RANDOM (BEAKER) 102 mg/dL 70-105 (test qvkb=610) CALCIUM (BEAKER) (test 9.0 mg/dL 8.4-10.2 zvhf=188) EGFR (BEAKER) (test 147 mL/min/1.73 sq m ESTIMATED GFR IS NOT hbiz=9358) ACCURATE CREATININE CLEARANCE IN PREDICTING GLOMERULAR FILTRATION RATE. ESTIMATED GFR IS NOT APPLICABLE FOR DIALYSIS PATIENTS.
--- NOTE | 2017-12-12 14:12 | RAD REPORT ---
EXAM DESCRIPTION: CT - Head Brain Wo Cont - 12/12/2017 2:00 pm CLINICAL HISTORY: Alteration of consciousness/memory loss COMPARISON: November 2016 TECHNIQUE: Computed axial tomography of the head was obtained. IV contrast was not requested. All CT scans are performed using dose optimization technique as appropriate and may include automated exposure control or mA/KV adjustment according to patient size. FINDINGS: An intracranial bleed is not seen . The ventricles are normal in caliber. No extra-axial fluid collection is noted. Low-density within the right frontal lobe likely is seconda ry to an old infarct. There is volume loss. Fluid within the sinuses/ mastoids is not seen. IMPRESSION: No acute intracranial abnormality is seen. If patient's symptoms persist MRI of the bra in would be recommended.
[2017-12-12] MEDS ORDERED: MEPERIDINE HCL 50 MG/ML AMP ONE (14:13)
[2017-12-12] MEDS ORDERED: PROMETHAZINE 25 MG/ML VIAL ONE (14:13)
--- NOTE | 2017-12-12 14:23 | EDPHYS ---
Physician Documentation [facility] Name: Brennon Berg Age: 37 yrs Sex: Female : 1980 Arrival Date: 12/12/2017 Time: 11:24 Bed 28 Private MD: ED Physician Flaco Cook HPI: 12/12 13:52 This 37 yrs old Black Female presents to ER via Ambulatory with complaints of Drainage rn From Eye, Headache. 13:52 The patient is experiencing matting or discharge, pain, redness, tearing. Onset: The rn symptoms/episode began/occurred 3 day(s) ago. Duration: the symptoms are continuous. Patient wears soft contacts. Severity of symptoms: At their worst the symptoms were moderate in the emergency department the symptoms are unchanged. The patient has experienced a previous episode. Reports right eye began with irritation on Sunday, got worse today, woke up with right sided headache, drainage of right eye, no trauma, not wearing her contacts, has had eye infection before. . 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 aj Historical: - Allergies: 11:46 Fentanyl; aj 11:46 Morphine; aj 11:46 Reglan; aj 11:46 Stadol; aj 11:46 Toradol; aj 11:46 tramadol; aj 11:46 Trazodone; aj 11:46 Ultram; aj 11:46 Zofran; aj - Home Meds: 11:46 gabapentin 300 mg Oral cap 1 cap 3 times per day [Active]; Hydrea 500 mg Oral cap TID aj [Active]; hydrocodone-acetaminophen 2.5-500 mg Oral tab 1 tab every 4 hours [Active]; hydroxyurea 500 mg Oral cap 1 cap every 3 days [Active]; Keppra 250 mg Oral tab 1 tabs 2 times per day [Active]; Promethazine Oral [Active]; Xanax 2 mg Oral tab 3 times per day [Active]; - PMHx: 11:46 aplastic anemia; CVA; Myocardial infarction; Seizures; Sickle Cell; aj - PSHx: 11:46 Hysterectomy; aj - Immunization history:: Adult Immunizations up to date. - Social history:: Smoking status: Patient/guardian denies using tobacco. - Family history:: not pertinent. - Hospitalizations: : No recent hospitalization is reported. ROS: 13:52 Constitutional: Negative for fever, chills, and weight loss, Eyes: + rn pain/redness/tearing Neck: Negative for injury, pain, and swelling, Neuro: + headache Exam: 13:52 Constitutional: This is a well developed, well nourished patient who is awake, alert, rn and in no acute distress. Head/Face: Normocephalic, atraumatic. Eyes: Right eye with mild proptosis, + scleral injection/erythema, moderate amount of discharge/matteing, no hypopyon, + mild opacification of cornea Neuro: Awake and alert, GCS 15, oriented to person, place, time, and situation. Cranial nerves II-XII grossly intact. Motor strength 5/5 in all extremities. Sensory grossly intact. Cerebellar exam normal. Normal gait. Vital Signs: 11:46 BP 133 / 95; Pulse 92; Resp 16; Temp 99.2; Pulse Ox 99% on R/A; Weight 69.85 kg; Height aj 5 ft. 3 in. (160.02 cm); Pain 8/10; 14:37 BP 138 / 98; Pulse 90; Resp 17; Pulse Ox 99% on R/A; kr2 11:46 Body Mass Index 27.28 (69.85 kg, 160.02 cm) aj MDM: 13:05 Patient medically screened. rn 14:22 Differential diagnosis: Corneal abrasion of Corneal ulcer of Acute iritis of uveitis. rn Data reviewed: vital signs, nurses notes, radiologic studies, CT scan, and as a result, I will discharge patient. Counseling: I had a detailed discussion with the patient and/or guardian regarding: the historical points, exam findings, and any diagnostic results supporting the discharge/admit diagnosis, radiology results, the need for outpatient follow up, to return to the emergency department if symptoms worsen or persist or if there are any questions or concerns that arise at home. Special discussion: I discussed with the patient/guardian in detail that at this point there is no indication for admission to the hospital. It is understood, however, that if the symptoms persist or worsen the patient needs to return immediately for re-evaluation. Based on the history and exam findings, there is no indication for further emergent testing or inpatient evaluation. I discussed with the patient/guardian the need to see the opthamologist for further evaluation of the symptoms. ED course: Consulted with Dr. Kodi, will dc straight to his office for further evaluation. . 12/12 13:22 Order name: CT Head Brain wo Cont: thin slices through orbit; Complete Time: 14:14 rn Administered Medications: 14:24 Drug: Demerol 50 mg Route: IM; Site: right deltoid; kr2 14:40 Follow up: Response: No adverse reaction kr2 14:24 Drug: Phenergan 12.5 mg Route: IM; Site: left gluteus; kr2 14:40 Follow up: Response: No adverse reaction kr2 Disposition: 12/12/17 14:23 Discharged to Home. Impression: Corneal ulcer with hypopyon, right eye. - Condition is Stable. - Discharge Instructions: Corneal Ulcer. - Medication Reconciliation Form, Thank You Letter, Antibiotic Education, Prescription Opioid Use form. - Follow up: Ignacio Mariee MD; When: Upon discharge from the Emergency Department; Reason: Recheck today's complaints, Re-evaluation by your physician. - Problem is new. - Symptoms have improved. Signatures: Dispatcher [employer] [place] Rosales RN RN aj Nieto, Roman, MD MD rn Reaves, Karey, RN RN kr2
--- NOTE | 2017-12-12 14:23 | ER ---
Nurse's Notes [facility] Name: Brennon Berg Age: 37 yrs Sex: Female : 1980 Arrival Date: 12/12/2017 Time: 11:24 Bed 28 Private MD: Diagnosis: Corneal ulcer with hypopyon, right eye Presentation: 12/12 11:44 Presenting complaint: Patient states: Green discharge from right eye since Sunday aj with migraine that started last night. Transition of care: patient was not received from another setting of care. Onset of symptoms was December 08, 2017. Initial Sepsis Screen: Does the patient meet any 2 criteria? No. Patient's initial sepsis screen is negative. Does the patient have a suspected source of infection? No. Patient's initial sepsis screen is negative. Care prior to arrival: None. 11:44 Method Of Arrival: Ambulatory 11:44 Acuity: TEMI 3 Triage Assessment: 11:46 Headache History: The patient has had previous headaches and this one is similar to aj previous episodes. General: Appears in no apparent distress. uncomfortable, Behavior is calm, cooperative, appropriate for age. Pain: Complains of pain in face, scalp and right eye Pain currently is 8 out of 10 on a pain scale. Pain began 2-3 days ago. Also complains of nausea. Neuro: Level of Consciousness is awake, alert, obeys commands, Oriented to person, place, time, situation, Appropriate for age. Neuro: Reports headache. Respiratory: Airway is patent Respiratory effort is even, unlabored, Respiratory pattern is regular, symmetrical. GI: Reports nausea. Derm: Skin is intact, is healthy with good turgor, Skin is pink, warm \T\ dry. normal. 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 N/A - Hysterectomy aj Historical: - Allergies: 11:46 Fentanyl; aj 11:46 Morphine; aj 11:46 Reglan; aj 11:46 Stadol; aj 11:46 Toradol; aj 11:46 tramadol; aj 11:46 Trazodone; aj 11:46 Ultram; aj 11:46 Zofran; aj - Home Meds: 11:46 gabapentin 300 mg Oral cap 1 cap 3 times per day [Active]; Hydrea 500 mg Oral cap TID aj [Active]; hydrocodone-acetaminophen 2.5-500 mg Oral tab 1 tab every 4 hours [Active]; hydroxyurea 500 mg Oral cap 1 cap every 3 days [Active]; Keppra 250 mg Oral tab 1 tabs 2 times per day [Active]; Promethazine Oral [Active]; Xanax 2 mg Oral tab 3 times per day [Active]; - PMHx: 11:46 aplastic anemia; CVA; Myocardial infarction; Seizures; Sickle Cell; aj - PSHx: 11:46 Hysterectomy; aj - Immunization history:: Adult Immunizations up to date. - Social history:: Smoking status: Patient/guardian denies using tobacco. - Family history:: not pertinent. - Hospitalizations: : No recent hospitalization is reported. Screenin:25 Abuse screen: Denies threats or abuse. Denies injuries from another. Nutritional kr2 screening: No deficits noted. Tuberculosis screening: No symptoms or risk factors identified. Fall Risk Gait- Impaired (20 pts.). Assessment: 13:21 General: Appears in no apparent distress. uncomfortable, well groomed, well developed, kr2 well nourished, Behavior is calm, cooperative. Pain: Complains of pain in right eye, head Pain currently is 10 out of 10 on a pain scale. Quality of pain is described as burning, aching, tender, Pain began Sunday Is continuous, Alleviated by nothing. Aggravated by light, touch. Neuro: Level of Consciousness is awake, alert, obeys commands, Oriented to person, place, time, situation. Cardiovascular: Capillary refill < 3 seconds in bilateral fingers Patient's skin is warm and dry. Respiratory: Airway is patent Respiratory effort is even, unlabored, Respiratory pattern is regular, symmetrical. GI: Abdomen is round non-distended. : No signs and/or symptoms were reported regarding the genitourinary system. EENT: Eyes with exudate noted from right eye Sclera/Cornea are cloudy in iris of right eye are reddened in outer aspect of conjuctiva of right eye and inner aspect of conjuctiva of right eye Lid(s) right eye lid swollen. Derm: Skin is intact, is healthy with good turgor. Musculoskeletal: Circulation, motion, and sensation intact. 14:37 Reassessment: Patient appears in no apparent distress at this time. Patient is alert, kr2 oriented x 3, equal unlabored respirations, skin warm/dry/pink. Vital Signs: 11:46 BP 133 / 95; Pulse 92; Resp 16; Temp 99.2; Pulse Ox 99% on R/A; Weight 69.85 kg; Height aj 5 ft. 3 in. (160.02 cm); Pain 8/10; 14:37 BP 138 / 98; Pulse 90; Resp 17; Pulse Ox 99% on R/A; kr2 11:46 Body Mass Index 27.28 (69.85 kg, 160.02 cm) ED Course: 11:24 Patient arrived in ED. as 11:45 Triage completed. aj 11:46 Arm band placed on right wrist. Patient placed in waiting room, Patient notified of wait time. 12:59 Gloria Gomez, NIKKI is Primary Nurse. kr2 13:05 Flaco Cook MD is Attending Physician. rn 13:25 Patient has correct armband on for positive identification. Bed in low position. Call kr2 light in reach. Side rails up X2. Pulse ox on. NIBP on. Door closed. Lights dimmed. Warm blanket given. Head of bed elevated. 14:01 CT Head Brain wo Cont: thin slices through orbit In Process Unspecified. EDOH 14:04 CT completed. Patient tolerated procedure well. Patient moved back from CT. jg1 14:23 Ignacio Mariee MD is Referral Physician. rn 14:38 No provider procedures requiring assistance completed. Patient did not have IV access kr2 during this emergency room visit. Administered Medications: 14:24 Drug: Demerol 50 mg Route: IM; Site: right deltoid; kr2 14:40 Follow up: Response: No adverse reaction kr2 14:24 Drug: Phenergan 12.5 mg Route: IM; Site: left gluteus; kr2 14:40 Follow up: Response: No adverse reaction kr2 Outcome: 14:23 Discharge ordered by . rn 14:38 Discharged to ophthalmology upon discharge from ER kr2 14:38 Condition: good 14:38 Discharge instructions given to patient, Instructed on discharge instructions, follow up and referral plans. Demonstrated understanding of instructions, follow-up care. 14:40 Patient left the ED. kr2 Signatures: Dispatcher [employer] EDMS India Dow RN RN aj Garcia, Jessica j Paloma Childers as Cook, Flaco, MD MD rn Patricia, Gloria, RN RN kr2
[2017-12-12 14:43] VITALS: TEMP 99.2; O2SAT 99
[2017-12-12 14:45] VITALS: BP 138/98
== END 2017-12-12 14:40 | disposition home or self-care (01) ==
LOC: ER 11:20
DX: H16.031 Corneal ulcer with hypopyon, right eye (principal); D57.1 Sickle-cell disease without crisis; Z86.73 Personal history of transient ischemic attack (TIA), and cerebral infarction without residual deficits; I25.2 Old myocardial infarction
CPT/HCPCS: 70450; 96372; 99284; J2175; J2550

== ENCOUNTER 2018-01-21 17:43 | Emergency (ER) | payer OTHER ==
--- OUTSIDE RECORDS SUMMARY | 2018-01-21 17:46 | XMS REPORT | Clinical Summary ---
:1980 Author Organization [facility] Address [address] [place] [address] Phone Care Team Providers Name Role Phone Unavailable Primary Care Provider Unavailable Allergies Active Allergy Reactions Severity Noted Date Comments Tramadol Other (See Comments) High 02/21/2014 Seizure Morphine Other (See Comments) 11/27/2013 seizures Butorphanol Tartrate Other (See Comments) 11/27/2013 seizures Xun-Qn-Jdh-Mnfgevsv-Gkbfg-Edqp 10/01/2014 seizure Ketorolac Other (See Comments) 11/27/2013 [...] Pain 12/01/2013 Sickle cell anemia with crisis ([facility]) 11/30/2013 Iron overload due to repeated [...] (HCC) (Primary Traci Obregon, RN Dx) after 01/20/2017 Family History Medical History Relation Name Comments [...] 11/22/2017 1:14 PM CDT chest pain after 01/20/2017 Results CARDIAC CATH REPORT - SCAN (11/27/2017 8:52 PM)Calcium, Ionized (11/25/2017 4: 38 AM)Only the most recent of14 resultswithin the time period is included. Component Value Ref Range Calcium, Ion 1.10 (L) 1.12 - 1.27 mmol/L pH, Blood 7.30 Specimen Performing Laboratory Blood [address] [address] Phosphorus (11/25/2017 4:38 AM)Only the most recent of15 resultswithin the time period is included. Component Value Ref Range Phosphorus 4.7 2.3 - 4.7 mg/dL Specimen Performing Laboratory Blood [address] [address] Magnesium (11/25/2017 4:38 AM)Only the most recent of16 resultswithin the time period is included. Component Value Ref Range Magnesium 1.4 (L) 1.6 - 2.6 mg/dL Specimen Performing Laboratory Blood [address] [address] Basic Metabolic Panel (11/25/2017 4:38 AM)Only the [...] FOR DIALYSIS PATIENTS. Specimen Performing Laboratory Blood [address] [address] Uric acid (11/24/2017 5:36 AM) Component Value Ref Range Uric Acid 4.8 2.6 - 7.2 mg/dL Specimen Performing Laboratory Blood [address] [address] Lactate dehydrogenase (LDH) (11/24/2017 5:36 AM) Component Value Ref Range LDH 489 (H) 125 - 220 U/L Specimen Performing Laboratory Blood [address] [address] Creatine Kinase (CK) (11/24/2017 5:36 AM) Component Value Ref Range Total CK 8 (L) 29 - 200 U/L Specimen Performing Laboratory Blood [address] [address] Potassium (11/23/2017 5:35 PM)Only the most recent of3 resultswithin the time period is included. Component Value Ref Range Potassium 5.5 (H) 3.5 - 5.1 meq/L Specimen Performing Laboratory Blood - Central Venous Line [address] [address] Narrative Call if K > 5.4 to renal [phone] CBC with platelet count + automated diff [...] 1 % Specimen Performing Laboratory Blood [facility] [address] [place] [address] CBC with platelet count + automated diff (11/23/2017 4:50 AM)Only the most recent of26 resultswithin the time period is included. Specimen Performing Laboratory Blood Narrative The following orders were created for panel order CBC with platelet count + automated diff. Procedure Abnormality Status --------- ------ CBC with platelet count ...[[id number]]AbnormalFinal result Please view results for these tests on the individual orders. Electrolytes (11/22/2017 12:30 PM) Component Value Ref Range Sodium 137 136 - 145 meq/L Potassium 5.4 (H) 3.5 - 5.1 meq/L Chloride 100 98 - 107 meq/L CO2 30 (H) 22 - 29 meq/L Specimen Performing Laboratory Blood [address] [address] Narrative Call results [id number] B-type Natriuretic Factor (BNP) (11/21/2017 4:56 AM)Only the most recent of3 resultswithin the time period is included. Component Value Ref Range BNP 120 (H) 0 - 100 pg/mL Specimen Performing Laboratory Blood [address] [address] Blood gas, venous (11/20/2017 6:44 AM) Component [...] FIO2 21.0 % Specimen Performing Laboratory Blood [address] [address] Ferritin (11/19/2017 9:46 AM) Component Value Ref Range Ferritin [address] (H) 5 - 275 ng/mL Specimen Performing Laboratory Blood [address] [address] CBC (Hemogram only) (11/19/2017 6:25 AM) Component [...] Performing Laboratory Blood - Central Venous Line [address] [address] TRANSFUSION SERVICE REPORT - SCAN (11/17/2017 5:40 [...] Performing Laboratory Blood - Central Venous Line [address] [address] Prepare RBC (11/16/2017 11:55 PM) Component Value Ref Range Unit ABO O Pos UNIT NUMBER [id number] Status TRANSFUSED Blood Bank Product RED BLOOD CELLS PRODUCT CODE X3693R47 Unit ABO O Pos UNIT NUMBER [id number] Status TRANSFUSED Blood Bank Product RED BLOOD CELLS PRODUCT CODE I0354X81 CROSSMATCH COMPATIBLE CROSSMATCH COMPATIBLE Specimen Performing Laboratory [...] MD Report Verified Date/Time:11/16/2017 10:47:19 Reading Location: [facility] Radiology Reading Room Procedure Note Interface, External [...] Report Verified Date/Time: 11/16/2017 10:47:19 Reading Location: [facility] Radiology Reading Room mandible less than 4 [...] MD Report Verified Date/Time:11/16/2017 12:28:43 Reading Location: [facility] Radiology Reading Room Procedure Note Interface, External [...] Report Verified Date/Time: 11/16/2017 12:28:43 Reading Location: [facility] Reading Room Anti-Mitochondrial Ab, reflex to titer (11/16/2017 9:35 AM) Component Value Ref Range Scan Result Specimen Performing Laboratory Blood - Central Venous Line [facility] [address] [address] Actin (Smooth Muscle) Antibody, IgG (11/16/2017 9:35 [...] - Central Venous Line [facility] [address] [address] Narrative Performing Lab [facility] [address] [address] Irwin Marquez MD, PhD AMARILYS Titer & Pattern (11/16/2017 9:35 AM) Component Value Ref Range AMARILYS Titer 1:160 AMARILYS Pattern Multiple nuclear dots pattern Specimen Performing Laboratory Blood - Central Venous Line [address] [address] Hepatitis panel, acute (11/16/2017 9:35 AM) Component Value Ref Range Hep A IgM Nonreactive Nonreactive Hep B C IgM Nonreactive Nonreactive Hepatitis C Ab Nonreactive Nonreactive hepatitis B Surface Ag Nonreactive Nonreactive Specimen Performing Laboratory Blood - Central Venous Line [address] [address] Anti-Nuclear Antibody (AMARILYS) (11/16/2017 9:35 AM) Component Value Ref Range AMARILYS Positive (A) Negative Specimen Performing Laboratory Blood - Central Venous Line [address] [address] Manual Differential (11/16/2017 4:23 AM)Only the most recent of16 resultswithin the time period is included. Component Value Ref Range Total Counted WBC Morphology Normal Platelet Morphology Normal Polychromasia 1+ few Sickle Cells 1+ few Target Cells 2+ moderate Specimen Performing Laboratory Blood - Central Venous Line [address] [address] Transfuse Leuko-Red RBC (11/15/2017 11:12 PM)Only the most recent of10 resultswithin the time period is included.Urinalysis w/Microscopic (11/15/2017 6:45 PM)Only the most recent of4 resultswithin the time period is included. Component Value Ref Range Color, UA Yellow Clarity, UA Clear Specific [place], UA 1.006 1.001 - 1.035 pH, UA [...] Specimen Performing Laboratory Urine - Urine, Voided [address] [address] Prepare Leuko-Red RBC (11/15/2017 1:30 PM)Only the most recent of7 resultswithin the time period is included. Component Value Ref Range Unit ABO O Pos UNIT NUMBER [id number] Status WORK IN PROGRESS Blood Bank Product RED BLOOD CELLS PRODUCT CODE X4167S84 Unit ABO O Pos UNIT NUMBER [id number] Status CANCELED Blood Bank Product RED BLOOD CELLS PRODUCT CODE [id number] Specimen Performing Laboratory Other SAFETRACE [place] XR [...] MD Report Verified Date/Time:11/15/2017 12:43:04 Reading Location: [facility] Radiology Reading Room Procedure Note Interface, External [...] Report Verified Date/Time: 11/15/2017 12:43:04 Reading Location: [facility] Radiology Reading Room Antibody identification (11/15/2017 11:17 [...] Scrn POSITIVE Specimen Performing Laboratory Blood [facility] [address] [address] US Endovaginal (11/15/2017 7:00 AM) Specimen Performing [...] further characterize right ovarian dermoid. Signed: Funmilayo Gonzlaez MD Report Verified Date/Time:11/15/2017 09:03:15 Reading Location: [address] Ultrasound Reading Room Procedure Note Interface, [...] Report Verified Date/Time: 11/15/2017 09:03:15 Reading Location: [place] [id number] Ultrasound Reading Room Lipase (11/15/2017 5:30 AM) Component Value Ref Range Lipase 95 (H) 8 - 78 U/L Specimen Performing Laboratory Blood - Central Venous Line [address] [address] Urine culture (11/14/2017 6:19 AM)Only the most recent of2 resultswithin the time period is included. Component Value Ref Range Result >100,000 col/mL skin valentino Specimen Performing Laboratory Urine - Urine, Clean Catch [address] [address] Blood culture (11/13/2017 11:20 PM)Only the most recent of2 resultswithin the time period is included. Component Value Ref Range Result No growth in 5 days Specimen Performing Laboratory Blood - Portacath [address] [address] ECHOCARDIOGRAM REPORT - SCAN (11/10/2017 1:20 PM)Comprehensive [...] Performing Laboratory Blood - Central Venous Line [address] [address] 2D Echo W/Doppler(CW/PW/Color) (11/09/2017 6:46 PM) Component Value Ref Range Ejection Fraction Specimen Performing Laboratory [facility] E[facility] MKCKESSON CPACS Narrative Transthoracic Echocardiography Report (TTE) Demographics Patient NameSMITH, ALEESHIADate of Study11/09/2017 DIANA Gender Female Visit [id number] Race Black [id number] Number Date of 1980 Referringzach Lezama Physician Age 37 year(s) Family Services Specialist Lou Price RDCS Interpreting [facility] Needs to be Pre Physician Read Marlo [...] Study 11/09/2017 DIANA Gender Female Visit Number [id number] Race Black Room Number [id number] Number Date of 1980 Referring Neal Lezama Physician Age 37 year(s) Family Services Specialist Lou Price RDCS Interpreting [facility] Needs to [...] bedside (11/08/2017 7:20 PM) Specimen Performing Laboratory GE RIS Narrative FINAL REPORT EXAMINATION:AP PORTABLE CHEST RADIOGRAPH [...] MD Report Verified Date/Time:11/08/2017 20:41:24 Reading Location: [address] Reading Room Procedure Note Interface, External [...] Report Verified Date/Time: 11/08/2017 20:41:24 Reading Location: [address] Reading Room Sodium, random urine (11/08/2017 5:33 AM) Component Value Ref Range Sodium Urine 65 meq/L Specimen Performing Laboratory Urine - Urine, Voided [address] [address] Narrative Reference Range: No Normals Protein, random urine (11/08/2017 5:33 AM) Component Value Ref Range Protein, Urine 24 (H) 0 - 14 mg/dL Specimen Performing Laboratory Urine - Urine, Voided [address] [address] Creatinine, random urine (11/08/2017 5:33 AM) Component Value Ref Range Creatinine, Ur 46.0 mg/dL Specimen Performing Laboratory Urine - Urine, Voided [address] [address] Narrative Reference Range: No Normals Eosinophil smear (11/08/2017 5:33 AM) Component Value Ref Range Eosinophil Smear No EOS seen No EOS seen Specimen Performing Laboratory Urine - Urine, Voided [address] [address] [address] abdomen/pelvis without iv contrast (11/08/2017 3:01 [...] MD Report Verified Date/Time:11/08/2017 08:29:54 Reading Location: [facility] Diagnostic Imaging Reading Room - [place] [address] Procedure Note Interface, External Ris In - [...] Report Verified Date/Time: 11/08/2017 08:29:54 Reading Location: [facility] Diagnostic Imaging Reading Room - [facility] F1 1120 abdomen complete (11/07/2017 7:27 PM)Only [...] MD Report Verified Date/Time:11/07/2017 19:58:17 Reading Location: [address] Consult Reading Room Procedure Note Interface, External [...] Report Verified Date/Time: 11/07/2017 19:58:17 Reading Location: [facility] [id number] Consult Reading Room Lactic acid, venous, whole blood (11/07/2017 3:32 PM) Component Value Ref Range Lactate, Venous 0.9Comment: Specimen slightly hemolyzed 0.5 - 2.2 mmol/L Specimen Performing Laboratory Blood [place] [address] Narrative Effective 12/22/2015: Units/Reference Range Change New: 0.5-2.2 mmol/LPrevious: 5-20 mg/dL EKG-SCANNED (06/11/2017 10:10 AM)ECG 12 lead (06/05/2017 8:52 PM) Specimen Performing Laboratory GE MUSE Narrative Ventricular Rate 80 BPM Atrial Rate 80 BPM P-R Interval 180 ms QRS Duration 76 ms Q-T Interval 394 ms QTC Calculation(Bazett) 454 ms P [place] 49 degrees R [place] 20 degrees T [place] 34 degrees Normal sinus rhythm Normal ECG When compared with ECG of 15-SEP-2016 00:53, No significant change was found Confirmed by Wade GARCIA, DIOGO ([id number]) on 06/07/2017 1:13:44 PM Procedure Note Interface, External Ris In - 06/07/2017 1:13 PM CDT Ventricular Rate 80 BPM Atrial Rate 80 BPM P-R Interval 180 ms QRS Duration 76 ms Q-T Interval 394 ms QTC Calculation(Bazett) 454 ms P [place] 49 degrees R [place] 20 degrees T [place] 34 degrees Normal sinus rhythm Normal ECG When compared with ECG of 15-SEP-2016 00:53, No significant change was found Confirmed by Wade GARCIA BASANT ([id number]) on 06/07/2017 1:13:44 PM Troponin I (06/05/2017 8:40 PM) Component Value Ref Range Troponin I <0.01 0.00 - 0.03 ng/mL Specimen Performing Laboratory Blood - Central Venous Line [address] [address] Narrative Troponin I (TnI) levels must be [...] Performing Laboratory Blood - Central Venous Line [address] [place] [address] Narrative CK-MB Reference Range: <6.7Normal 6.7-10.0Borderline >10.0 Abnormal after 01/20/2017
--- OUTSIDE RECORDS SUMMARY | 2018-01-21 17:49 | XMS REPORT ---
:1980 Author Organization [facility] Address [address] [place] [address] [address] [place] [address] Care Team Providers Name Role Phone TALISHA [...] Value Reference Range Comments SCAN RESULT (test [id number]=[id number]) CALCIUM, [id number] 07:05:00 Test Item Value Reference Range Comments CALCIUM IONIZED (BEAKER) (test naki=147) 1.10 mmol/L 1.12-1.27 PH, BLOOD (BEAKER) (test fgei=1953) 7.30 [id number] 06:22:00 Test Item Value Reference Range Comments PHOSPHORUS (BEAKER) (test bybn=278) 4.7 mg/dL 2.3-4.7 [id number] 06:22:00 Test Item Value Reference Range Comments MAGNESIUM (BEAKER) (test fhbp=233) 1.4 mg/dL 1.6-2.6 BASIC METABOLIC [id number] 06:22:00 Test Item Value Reference Range Comments SODIUM (BEAKER) (test 135 meq/L 136-145 hxrz=234) POTASSIUM (BEAKER) (test 4.5 meq/L 3.5-5.1 ngjj=494) CHLORIDE (BEAKER) (test 100 meq/L 98-107 bzim=808) CO2 (BEAKER) (test 29 meq/L 22-29 ghft=458) BLOOD UREA NITROGEN 19 mg/dL 7-21 (BEAKER) (test ogtd=790) CREATININE (BEAKER) (test 0.76 mg/dL 0.57-1.25 kxna=507) GLUCOSE RANDOM (BEAKER) 104 mg/dL 70-105 (test znkh=898) CALCIUM (BEAKER) (test 9.3 mg/dL 8.4-10.2 csgj=299) EGFR (BEAKER) (test 103 mL/min/1.73 sq m ESTIMATED GFR IS NOT rxsk=8502) ACCURATE CREATININE CLEARANCE IN PREDICTING GLOMERULAR FILTRATION RATE. ESTIMATED GFR IS NOT APPLICABLE FOR DIALYSIS PATIENTS. CREATINE KINASE (CK)2017-11-24 08:12:00 Test Item Value Reference Range Comments CREATINE KINASE TOTAL (BEAKER) (test gsrm=935) 8 U/L 29-200 URIC [id number] 08:01:00 Test Item Value Reference Range Comments URIC ACID (BEAKER) (test tvjk=900) 4.8 mg/dL 2.6-7.2 [id number] 08:01:00 Test Item Value Reference Range Comments MAGNESIUM (BEAKER) (test gcrg=478) 1.5 mg/dL 1.6-2.6 [id number] 08:01:00 Test Item Value Reference Range Comments PHOSPHORUS (BEAKER) (test lyek=075) 5.3 mg/dL 2.3-4.7 BASIC METABOLIC [id number] 08:01:00 Test Item Value Reference Range Comments SODIUM (BEAKER) (test 138 meq/L 136-145 sgoe=135) POTASSIUM (BEAKER) (test 4.9 meq/L 3.5-5.1 elkr=412) CHLORIDE (BEAKER) (test 100 meq/L 98-107 szbv=576) CO2 (BEAKER) (test 28 meq/L 22-29 nnqo=967) BLOOD UREA NITROGEN 22 mg/dL 7-21 (BEAKER) (test edvo=112) CREATININE (BEAKER) (test 0.80 mg/dL 0.57-1.25 ijbw=748) GLUCOSE RANDOM (BEAKER) 102 mg/dL 70-105 (test votc=166) CALCIUM (BEAKER) (test 9.3 mg/dL 8.4-10.2 llsi=952) EGFR (BEAKER) (test 97 mL/min/1.73 sq m ESTIMATED GFR IS NOT qlzy=9681) ACCURATE CREATININE CLEARANCE IN PREDICTING GLOMERULAR FILTRATION RATE. ESTIMATED GFR IS NOT APPLICABLE FOR DIALYSIS PATIENTS. LACTATE DEHYDROGENASE (LDH)2017-11-24 08:01:00 Test Item Value Reference Range Comments LACTATE DEHYDROGENASE (BEAKER) (test hpbe=125) 489 U/L 125-220 [id number] 18:07:00 Test Item Value Reference Range Comments POTASSIUM (BEAKER) (test qpnx=290) 5.5 meq/L 3.5-5.1 Call if K > 5.4 to renal [id number] 1032CALCIUM, [id number] 06:51:00 Test Item Value Reference Range Comments CALCIUM IONIZED (BEAKER) (test oomi=033) 1.08 mmol/L 1.12-1.27 PH, BLOOD (BEAKER) (test topa=4994) 7.35 CBC W/PLT COUNT & AUTO [id number] 06:25:00 Test Item Value Reference Range Comments WHITE BLOOD CELL COUNT (BEAKER) (test byws=228) 18.3 K/ L 3.5-10.5 RED BLOOD CELL COUNT (BEAKER) (test edbp=506) 2.30 M/ L 3.93-5.22 HEMOGLOBIN (BEAKER) (test shta=474) 6.5 GM/DL 11.2-15.7 HEMATOCRIT (BEAKER) (test sxra=250) 21.1 % 34.1-44.9 MEAN CORPUSCULAR VOLUME (BEAKER) (test fqsr=005) 91.7 fL 79.4-94.8 MEAN CORPUSCULAR HEMOGLOBIN (BEAKER) (test 28.3 pg 25.6-32.2 vksi=581) MEAN CORPUSCULAR HEMOGLOBIN CONC (BEAKER) (test 30.8 GM/DL 32.2-35.5 jqau=640) RED CELL DISTRIBUTION WIDTH (BEAKER) (test 21.2 % 11.7-14.4 mhqs=079) PLATELET COUNT (BEAKER) (test aqiw=760) 414 K/CU MM 150-450 MEAN PLATELET VOLUME (BEAKER) (test sjwh=160) 11.5 fL 9.4-12.3 NUCLEATED RED BLOOD CELLS (BEAKER) (test 0 /100 WBC 0-0 ypgs=185) NEUTROPHILS RELATIVE PERCENT (BEAKER) (test 53 % jhni=573) LYMPHOCYTES RELATIVE PERCENT (BEAKER) (test 25 % uvpf=056) MONOCYTES RELATIVE PERCENT (BEAKER) (test 19 % sstu=495) EOSINOPHILS RELATIVE PERCENT (BEAKER) (test 2 % fene=711) BASOPHILS RELATIVE PERCENT (BEAKER) (test 0 % ynvq=612) NEUTROPHILS ABSOLUTE COUNT (BEAKER) (test 9.74 K/ L 1.56-6.13 ykki=544) LYMPHOCYTES ABSOLUTE COUNT (BEAKER) (test 4.57 K/ L 1.18-3.74 uvem=902) MONOCYTES ABSOLUTE COUNT (BEAKER) (test 3.51 K/ L 0.24-0.36 vgpw=169) EOSINOPHILS ABSOLUTE COUNT (BEAKER) (test 0.29 K/ L 0.04-0.36 gdrr=297) BASOPHILS ABSOLUTE COUNT (BEAKER) (test 0.07 K/ L 0.01-0.08 avqm=314) IMMATURE GRANULOCYTES-RELATIVE PERCENT (BEAKER) 1 % 0-1 (test tkhn=6670) [id number] 05:35:00 Test Item Value Reference Range Comments PHOSPHORUS (BEAKER) (test vfbx=613) 4.4 mg/dL 2.3-4.7 [id number] 05:35:00 Test Item Value Reference Range Comments MAGNESIUM (BEAKER) (test golx=318) 1.3 mg/dL 1.6-2.6 BASIC METABOLIC [id number] 05:35:00 Test Item Value Reference Range Comments SODIUM (BEAKER) (test 136 meq/L 136-145 mary=557) POTASSIUM (BEAKER) (test 5.4 meq/L 3.5-5.1 zogq=531) CHLORIDE (BEAKER) (test 97 meq/L 98-107 nuyt=657) CO2 (BEAKER) (test 31 meq/L 22-29 uqir=362) BLOOD UREA NITROGEN 20 mg/dL 7-21 (BEAKER) (test uonr=872) CREATININE (BEAKER) (test 0.75 mg/dL 0.57-1.25 ijxb=450) GLUCOSE RANDOM (BEAKER) 81 mg/dL 70-105 (test qgmp=576) CALCIUM (BEAKER) (test 9.5 mg/dL 8.4-10.2 bpoh=661) EGFR (BEAKER) (test 105 mL/min/1.73 sq m ESTIMATED GFR IS NOT tckv=2677) ACCURATE CREATININE CLEARANCE IN PREDICTING GLOMERULAR FILTRATION RATE. ESTIMATED GFR IS NOT APPLICABLE FOR DIALYSIS PATIENTS. [id number] 16:19:00 Test Item Value Reference Range Comments POTASSIUM (BEAKER) (test afpq=301) 5.2 meq/L 3.5-5.1 Repeat after 3 hours kayexalate was given; call result [id number] 12:53:00 Test Item Value Reference Range Comments SODIUM (BEAKER) (test kuzb=214) 137 meq/L 136-145 POTASSIUM (BEAKER) (test wenk=093) 5.4 meq/L 3.5-5.1 CHLORIDE (BEAKER) (test whaf=310) 100 meq/L 98-107 CO2 (BEAKER) (test qrhg=243) 30 meq/L 22-29 Call results [id number] 11:14:00 Test Item Value Reference Range Comments POTASSIUM (BEAKER) (test ktpr=182) 5.8 meq/L 3.5-5.1 [id number] 06:40:00 Test Item Value Reference Range Comments PHOSPHORUS (BEAKER) (test vlpr=325) 5.4 mg/dL 2.3-4.7 [id number] 06:40:00 Test Item Value Reference Range Comments MAGNESIUM (BEAKER) (test exlw=990) 1.6 mg/dL 1.6-2.6 CALCIUM, [id number] 06:27:00 Test Item Value Reference Range Comments CALCIUM IONIZED (BEAKER) (test xwhy=380) 0.99 mmol/L 1.12-1.27 PH, BLOOD (BEAKER) (test nimf=9325) 7.43 CBC W/PLT COUNT & AUTO [id number] 05:53:00 Test Item Value Reference Range Comments WHITE BLOOD CELL COUNT (BEAKER) (test rqih=862) 16.2 K/ L 3.5-10.5 RED BLOOD CELL COUNT (BEAKER) (test ksmj=355) 2.38 M/ L 3.93-5.22 HEMOGLOBIN (BEAKER) (test tkmc=592) 7.0 GM/DL 11.2-15.7 HEMATOCRIT (BEAKER) (test czll=010) 22.2 % 34.1-44.9 MEAN CORPUSCULAR VOLUME (BEAKER) (test ondj=985) 93.3 fL 79.4-94.8 MEAN CORPUSCULAR HEMOGLOBIN (BEAKER) (test 29.4 pg 25.6-32.2 dujh=090) MEAN CORPUSCULAR HEMOGLOBIN CONC (BEAKER) (test 31.5 GM/DL 32.2-35.5 nlao=738) RED CELL DISTRIBUTION WIDTH (BEAKER) (test 21.3 % 11.7-14.4 pprr=554) PLATELET COUNT (BEAKER) (test rmgm=783) 390 K/CU MM 150-450 MEAN PLATELET VOLUME (BEAKER) (test chxd=117) 11.8 fL 9.4-12.3 NUCLEATED RED BLOOD CELLS (BEAKER) (test 0 /100 WBC 0-0 njbg=103) NEUTROPHILS RELATIVE PERCENT (BEAKER) (test 58 % vujc=095) LYMPHOCYTES RELATIVE PERCENT (BEAKER) (test 23 % zzuc=110) MONOCYTES RELATIVE PERCENT (BEAKER) (test 17 % mzyq=777) EOSINOPHILS RELATIVE PERCENT (BEAKER) (test 2 % aola=367) BASOPHILS RELATIVE PERCENT (BEAKER) (test 0 % yzln=794) NEUTROPHILS ABSOLUTE COUNT (BEAKER) (test 9.31 K/ L 1.56-6.13 ogzt=167) LYMPHOCYTES ABSOLUTE COUNT (BEAKER) (test 3.65 K/ L 1.18-3.74 dbnp=455) MONOCYTES ABSOLUTE COUNT (BEAKER) (test 2.70 K/ L 0.24-0.36 szxz=352) EOSINOPHILS ABSOLUTE COUNT (BEAKER) (test 0.36 K/ L 0.04-0.36 kvtf=092) BASOPHILS ABSOLUTE COUNT (BEAKER) (test 0.04 K/ L 0.01-0.08 sxsu=594) IMMATURE GRANULOCYTES-RELATIVE PERCENT (BEAKER) 1 % 0-1 (test uuak=9220) BASIC METABOLIC [id number] 17:35:00 Test Item Value Reference Range Comments SODIUM (BEAKER) (test 133 meq/L 136-145 lygv=955) POTASSIUM (BEAKER) (test 5.4 meq/L 3.5-5.1 dchv=664) CHLORIDE (BEAKER) (test 99 meq/L 98-107 ckxu=437) CO2 (BEAKER) (test 26 meq/L 22-29 ihlz=277) BLOOD UREA NITROGEN 23 mg/dL 7-21 (BEAKER) (test alfg=398) CREATININE (BEAKER) (test 0.83 mg/dL 0.57-1.25 uaet=492) GLUCOSE RANDOM (BEAKER) 94 mg/dL 70-105 (test zrph=050) CALCIUM (BEAKER) (test 9.2 mg/dL 8.4-10.2 tnki=128) EGFR (BEAKER) (test 93 mL/min/1.73 sq m ESTIMATED GFR IS NOT ypgx=1902) ACCURATE CREATININE CLEARANCE IN PREDICTING GLOMERULAR FILTRATION RATE. ESTIMATED GFR IS NOT APPLICABLE FOR DIALYSIS PATIENTS. [id number] 06:33:00 Test Item Value Reference Range Comments PHOSPHORUS (BEAKER) (test vima=244) 5.3 mg/dL 2.3-4.7 [id number] 06:33:00 Test Item Value Reference Range Comments MAGNESIUM (BEAKER) (test fhmk=573) 1.6 mg/dL 1.6-2.6 BASIC METABOLIC [id number] 06:33:00 Test Item Value Reference Range Comments SODIUM (BEAKER) (test 133 meq/L 136-145 wvrm=425) POTASSIUM (BEAKER) (test 5.2 meq/L 3.5-5.1 zgoy=292) CHLORIDE (BEAKER) (test 97 meq/L 98-107 vapz=062) CO2 (BEAKER) (test 29 meq/L 22-29 rshu=870) BLOOD UREA NITROGEN 23 mg/dL 7-21 (BEAKER) (test npcv=522) CREATININE (BEAKER) (test 0.77 mg/dL 0.57-1.25 dnok=256) GLUCOSE RANDOM (BEAKER) 92 mg/dL 70-105 (test gasg=013) CALCIUM (BEAKER) (test 9.4 mg/dL 8.4-10.2 wdft=691) EGFR (BEAKER) (test 102 mL/min/1.73 sq m ESTIMATED GFR IS NOT gisz=2411) ACCURATE CREATININE CLEARANCE IN PREDICTING GLOMERULAR FILTRATION RATE. ESTIMATED GFR IS NOT APPLICABLE FOR DIALYSIS PATIENTS. CALCIUM, [id number] 06:22:00 Test Item Value Reference Range Comments CALCIUM IONIZED (BEAKER) (test lsrg=268) 1.18 mmol/L 1.12-1.27 PH, BLOOD (BEAKER) (test jdpf=1947) 7.32 B-TYPE NATRIURETIC FACTOR (BNP)2017-11-21 06:19:00 Test Item Value Reference Range Comments B-TYPE NATRIURETIC PEPTIDE (BEAKER) (test 120 pg/mL 0-100 kbzf=679) CBC W/PLT COUNT & AUTO [id number] 05:59:00 Test Item Value Reference Range Comments WHITE BLOOD CELL COUNT (BEAKER) (test fnvn=169) 17.4 K/ L 3.5-10.5 RED BLOOD CELL COUNT (BEAKER) (test vbka=215) 2.32 M/ L 3.93-5.22 HEMOGLOBIN (BEAKER) (test gvae=992) 6.7 GM/DL 11.2-15.7 HEMATOCRIT (BEAKER) (test mlnv=664) 21.6 % 34.1-44.9 MEAN CORPUSCULAR VOLUME (BEAKER) (test rjlr=842) 93.1 fL 79.4-94.8 MEAN CORPUSCULAR HEMOGLOBIN (BEAKER) (test 28.9 pg 25.6-32.2 hsvu=786) MEAN CORPUSCULAR HEMOGLOBIN CONC (BEAKER) (test 31.0 GM/DL 32.2-35.5 hgrp=130) RED CELL DISTRIBUTION WIDTH (BEAKER) (test 20.9 % 11.7-14.4 enrf=881) PLATELET COUNT (BEAKER) (test ocbm=917) 367 K/CU MM 150-450 MEAN PLATELET VOLUME (BEAKER) (test pmko=195) 12.1 fL 9.4-12.3 NUCLEATED RED BLOOD CELLS (BEAKER) (test 0 /100 WBC 0-0 vuop=914) NEUTROPHILS RELATIVE PERCENT (BEAKER) (test 58 % ozii=443) LYMPHOCYTES RELATIVE PERCENT (BEAKER) (test 23 % laua=396) MONOCYTES RELATIVE PERCENT (BEAKER) (test 16 % kebw=821) EOSINOPHILS RELATIVE PERCENT (BEAKER) (test 3 % gwjc=672) BASOPHILS RELATIVE PERCENT (BEAKER) (test 1 % usvy=138) NEUTROPHILS ABSOLUTE COUNT (BEAKER) (test 10.09 K/ L 1.56-6.13 suyr=198) LYMPHOCYTES ABSOLUTE COUNT (BEAKER) (test 3.92 K/ L 1.18-3.74 gdki=858) MONOCYTES ABSOLUTE COUNT (BEAKER) (test 2.71 K/ L 0.24-0.36 tikh=063) EOSINOPHILS ABSOLUTE COUNT (BEAKER) (test 0.46 K/ L 0.04-0.36 zwwz=366) BASOPHILS ABSOLUTE COUNT (BEAKER) (test 0.08 K/ L 0.01-0.08 qzaj=735) IMMATURE GRANULOCYTES-RELATIVE PERCENT (BEAKER) 1 % 0-1 (test fyne=5075) BLOOD GAS, [id number] 07:22:00 Test Item Value Reference Range Comments PH VENOUS (BEAKER) (test lmbp=261) 7.34 7.32-7.42 PCO2 VENOUS (BEAKER) (test pttp=305) 63 mmHg 41-51 PO2 VENOUS (BEAKER) (test gwpr=409) 133 mmHg 25-40 O2 SATURATION VENOUS (BEAKER) (test kfsc=376) 98.4 % 40.0-70.0 HCO3 VENOUS (BEAKER) (test offc=724) 33 mmol/L 21-29 BASE EXCESS VENOUS (BEAKER) (test zuxx=143) 6.6 mmol/L -2.0-3.0 PATIENT TEMPERATURE (BEAKER) (test sdea=8180) 37.0 C FIO2 (BEAKER) (test goaz=3517) 21.0 % CALCIUM, [id number] 07:20:00 Test Item Value Reference Range Comments CALCIUM IONIZED (BEAKER) (test rqrr=801) 1.10 mmol/L 1.12-1.27 PH, BLOOD (BEAKER) (test kjfe=6109) 7.33 [id number] 07:18:00 Test Item Value Reference Range Comments PHOSPHORUS (BEAKER) (test uvcm=724) 4.8 mg/dL 2.3-4.7 [id number] 07:18:00 Test Item Value Reference Range Comments MAGNESIUM (BEAKER) (test gfmf=073) 1.6 mg/dL 1.6-2.6 BASIC METABOLIC [id number] 07:18:00 Test Item Value Reference Range Comments SODIUM (BEAKER) (test 137 meq/L 136-145 iful=089) POTASSIUM (BEAKER) (test 4.8 meq/L 3.5-5.1 gffo=065) CHLORIDE (BEAKER) (test 99 meq/L 98-107 pdrt=600) CO2 (BEAKER) (test 31 meq/L 22-29 uoem=074) BLOOD UREA NITROGEN 20 mg/dL 7-21 (BEAKER) (test dkiv=020) CREATININE (BEAKER) (test 0.83 mg/dL 0.57-1.25 cjzf=184) GLUCOSE RANDOM (BEAKER) 117 mg/dL 70-105 (test mrrd=823) CALCIUM (BEAKER) (test 9.5 mg/dL 8.4-10.2 mnre=514) EGFR (BEAKER) (test 93 mL/min/1.73 sq m ESTIMATED GFR IS NOT bynt=0532) ACCURATE CREATININE CLEARANCE IN PREDICTING GLOMERULAR FILTRATION RATE. ESTIMATED GFR IS NOT APPLICABLE FOR DIALYSIS PATIENTS. CBC W/PLT COUNT & AUTO [id number] 07:14:00 Test Item Value Reference Range Comments WHITE BLOOD CELL COUNT (BEAKER) (test ndfs=200) 16.7 K/ L 3.5-10.5 RED BLOOD CELL COUNT (BEAKER) (test tzwf=434) 2.39 M/ L 3.93-5.22 HEMOGLOBIN (BEAKER) (test wame=980) 6.9 GM/DL 11.2-15.7 HEMATOCRIT (BEAKER) (test qcev=829) 22.3 % 34.1-44.9 MEAN CORPUSCULAR VOLUME (BEAKER) (test mquv=699) 93.3 fL 79.4-94.8 MEAN CORPUSCULAR HEMOGLOBIN (BEAKER) (test 28.9 pg 25.6-32.2 rxbd=737) MEAN CORPUSCULAR HEMOGLOBIN CONC (BEAKER) (test 30.9 GM/DL 32.2-35.5 lgph=409) RED CELL DISTRIBUTION WIDTH (BEAKER) (test 21.1 % 11.7-14.4 iigr=963) PLATELET COUNT (BEAKER) (test rfrf=546) 344 K/CU MM 150-450 MEAN PLATELET VOLUME (BEAKER) (test cvbj=707) 11.7 fL 9.4-12.3 NUCLEATED RED BLOOD CELLS (BEAKER) (test 0 /100 WBC 0-0 ewfd=309) NEUTROPHILS RELATIVE PERCENT (BEAKER) (test 60 % yali=444) LYMPHOCYTES RELATIVE PERCENT (BEAKER) (test 23 % dsyk=225) MONOCYTES RELATIVE PERCENT (BEAKER) (test 14 % ydeq=478) EOSINOPHILS RELATIVE PERCENT (BEAKER) (test 3 % rjpr=459) BASOPHILS RELATIVE PERCENT (BEAKER) (test 0 % wlwu=323) NEUTROPHILS ABSOLUTE COUNT (BEAKER) (test 9.95 K/ L 1.56-6.13 zpte=249) LYMPHOCYTES ABSOLUTE COUNT (BEAKER) (test 3.92 K/ L 1.18-3.74 teov=908) MONOCYTES ABSOLUTE COUNT (BEAKER) (test 2.29 K/ L 0.24-0.36 bcow=054) EOSINOPHILS ABSOLUTE COUNT (BEAKER) (test 0.45 K/ L 0.04-0.36 cuij=229) BASOPHILS ABSOLUTE COUNT (BEAKER) (test 0.04 K/ L 0.01-0.08 ysko=573) IMMATURE GRANULOCYTES-RELATIVE PERCENT (BEAKER) 0 % 0-1 (test rfqi=9509) [id number] 11:18:00 Test Item Value Reference Range Comments FERRITIN (BEAKER) (test lhac=326) [address]2208 ng/mL 5-275 [id number] 07:10:00 Test Item Value Reference Range Comments MAGNESIUM (BEAKER) (test rlwj=951) 2.0 mg/dL 1.6-2.6 BASIC METABOLIC [id number] 07:10:00 Test Item Value Reference Range Comments SODIUM (BEAKER) (test 137 meq/L 136-145 iuda=930) POTASSIUM (BEAKER) (test 4.5 meq/L 3.5-5.1 xuei=528) CHLORIDE (BEAKER) (test 99 meq/L 98-107 tnpz=656) CO2 (BEAKER) (test 35 meq/L 22-29 kyow=478) BLOOD UREA NITROGEN 18 mg/dL 7-21 (BEAKER) (test xpma=365) CREATININE (BEAKER) (test 0.78 mg/dL 0.57-1.25 hmuh=292) GLUCOSE RANDOM (BEAKER) 102 mg/dL 70-105 (test eboo=917) CALCIUM (BEAKER) (test 9.4 mg/dL 8.4-10.2 prna=797) EGFR (BEAKER) (test 100 mL/min/1.73 sq m ESTIMATED GFR IS NOT dlrl=2398) ACCURATE CREATININE CLEARANCE IN PREDICTING GLOMERULAR FILTRATION RATE. ESTIMATED GFR IS NOT APPLICABLE FOR DIALYSIS PATIENTS. CBC (HEMOGRAM ONLY)2017-11-19 07:06:00 Test Item Value Reference Range Comments WHITE BLOOD CELL COUNT (BEAKER) (test jeif=043) 15.3 K/ L 3.5-10.5 RED BLOOD CELL COUNT (BEAKER) (test sjih=009) 2.42 M/ L 3.93-5.22 HEMOGLOBIN (BEAKER) (test vxby=246) 7.1 GM/DL 11.2-15.7 HEMATOCRIT (BEAKER) (test wmcx=821) 22.5 % 34.1-44.9 MEAN CORPUSCULAR VOLUME (BEAKER) (test nnka=913) 93.0 fL 79.4-94.8 MEAN CORPUSCULAR HEMOGLOBIN (BEAKER) (test 29.3 pg 25.6-32.2 gzsm=079) MEAN CORPUSCULAR HEMOGLOBIN CONC (BEAKER) (test 31.6 GM/DL 32.2-35.5 xywh=465) RED CELL DISTRIBUTION WIDTH (BEAKER) (test 20.9 % 11.7-14.4 kfiy=015) PLATELET COUNT (BEAKER) (test bibv=575) 324 K/CU MM 150-450 MEAN PLATELET VOLUME (BEAKER) (test nnkd=597) 11.8 fL 9.4-12.3 NUCLEATED RED BLOOD CELLS (BEAKER) (test 1 /100 WBC 0-0 ldng=072) BLOOD [id number] 06:00:00 Test Item Value Reference Range Comments CULTURE (BEAKER) (test zqjg=4367) No growth in 5 days ANTI-NUCLEAR ANTIBODY (AMARILYS)2017-11-17 14:21:00 Test Item Value Reference Range Comments ANTI-NUCLEAR ANTIBODY (AMARILYS) (BEAKER) (test Positive Negative jazu=555) AMARILYS TITER AND [id number] 14:21:00 Test Item Value Reference Range Comments AMARILYS TITER (BEAKER) (test :160 bsft=4699) AMARILYS PATTERN (BEAKER) (test Multiple nuclear dots pattern fdxk=4989) [id number] 07:16:00 Test Item Value Reference Range Comments PHOSPHORUS (BEAKER) (test wikv=570) 4.5 mg/dL 2.3-4.7 [id number] 07:16:00 Test Item Value Reference Range Comments MAGNESIUM (BEAKER) (test papx=751) 1.4 mg/dL 1.6-2.6 BASIC METABOLIC [id number] 07:16:00 Test Item Value Reference Range Comments SODIUM (BEAKER) (test 141 meq/L 136-145 tvpu=242) POTASSIUM (BEAKER) (test 4.2 meq/L 3.5-5.1 fwjm=448) CHLORIDE (BEAKER) (test 98 meq/L 98-107 xspx=062) CO2 (BEAKER) (test 34 meq/L 22-29 zamd=494) BLOOD UREA NITROGEN 21 mg/dL 7-21 (BEAKER) (test lqyg=411) CREATININE (BEAKER) (test 0.85 mg/dL 0.57-1.25 yzbp=542) GLUCOSE RANDOM (BEAKER) 98 mg/dL 70-105 (test ckvb=960) CALCIUM (BEAKER) (test 9.2 mg/dL 8.4-10.2 lfxh=851) EGFR (BEAKER) (test 91 mL/min/1.73 sq m ESTIMATED GFR IS NOT xwlr=1014) ACCURATE CREATININE CLEARANCE IN PREDICTING GLOMERULAR FILTRATION RATE. ESTIMATED GFR IS NOT APPLICABLE FOR DIALYSIS PATIENTS. HEPATIC FUNCTION [id number] 07:16:00 Test Item Value Reference Range Comments TOTAL PROTEIN (BEAKER) (test wryb=375) 8.3 gm/dL 6.0-8.3 ALBUMIN (BEAKER) (test fvpe=3270) 3.0 g/dL 3.5-5.0 BILIRUBIN TOTAL (BEAKER) (test xssp=281) 1.3 mg/dL 0.2-1.2 BILIRUBIN DIRECT (BEAKER) (test bfgk=978) 0.7 mg/dL 0.1-0.5 ALKALINE PHOSPHATASE (BEAKER) (test wgem=346) 217 U/L 40-150 AST (SGOT) (BEAKER) (test qhka=082) 106 U/L 5-34 ALT (SGPT) (BEAKER) (test lvel=810) 46 U/L 6-55 CALCIUM, [id number] 06:50:00 Test Item Value Reference Range Comments CALCIUM IONIZED (BEAKER) (test vfzd=652) 1.11 mmol/L 1.12-1.27 PH, BLOOD (BEAKER) (test zxsh=3654) 7.34 CBC W/PLT COUNT & AUTO [id number] 06:09:00 Test Item Value Reference Range Comments WHITE BLOOD CELL COUNT (BEAKER) (test qzit=367) 16.8 K/ L 3.5-10.5 RED BLOOD CELL COUNT (BEAKER) (test mvwl=230) 2.53 M/ L 3.93-5.22 HEMOGLOBIN (BEAKER) (test ipfe=666) 7.3 GM/DL 11.2-15.7 HEMATOCRIT (BEAKER) (test tiup=116) 23.3 % 34.1-44.9 MEAN CORPUSCULAR VOLUME (BEAKER) (test jqzq=263) 92.1 fL 79.4-94.8 MEAN CORPUSCULAR HEMOGLOBIN (BEAKER) (test 28.9 pg 25.6-32.2 oual=071) MEAN CORPUSCULAR HEMOGLOBIN CONC (BEAKER) (test 31.3 GM/DL 32.2-35.5 xswg=992) RED CELL DISTRIBUTION WIDTH (BEAKER) (test 20.2 % 11.7-14.4 nrhl=786) PLATELET COUNT (BEAKER) (test buxf=272) 305 K/CU MM 150-450 MEAN PLATELET VOLUME (BEAKER) (test umak=164) 12.0 fL 9.4-12.3 NUCLEATED RED BLOOD CELLS (BEAKER) (test 1 /100 WBC 0-0 obac=471) NEUTROPHILS RELATIVE PERCENT (BEAKER) (test 66 % bvcm=148) LYMPHOCYTES RELATIVE PERCENT (BEAKER) (test 20 % amqe=253) MONOCYTES RELATIVE PERCENT (BEAKER) (test 11 % bqwd=142) EOSINOPHILS RELATIVE PERCENT (BEAKER) (test 3 % bchz=294) BASOPHILS RELATIVE PERCENT (BEAKER) (test 0 % uout=715) NEUTROPHILS ABSOLUTE COUNT (BEAKER) (test 10.99 K/ L 1.56-6.13 tvqb=782) LYMPHOCYTES ABSOLUTE COUNT (BEAKER) (test 3.29 K/ L 1.18-3.74 kqbj=767) MONOCYTES ABSOLUTE COUNT (BEAKER) (test 1.89 K/ L 0.24-0.36 boec=009) EOSINOPHILS ABSOLUTE COUNT (BEAKER) (test 0.48 K/ L 0.04-0.36 wnlv=373) BASOPHILS ABSOLUTE COUNT (BEAKER) (test 0.05 K/ L 0.01-0.08 rede=354) IMMATURE GRANULOCYTES-RELATIVE PERCENT (BEAKER) 0 % 0-1 (test cwkg=7764) HEPATITIS PANEL, [id number] 14:32:00 Test Item Value Reference Range Comments HEPATITIS A IGM ANTIBODY (BEAKER) (test Nonreactive Nonreactive xlro=189) HEPATITIS B CORE IGM ANTIBODY (BEAKER) (test Nonreactive Nonreactive yugc=841) HEPATITIS C ANTIBODY (BEAKER) (test dgjf=497) Nonreactive Nonreactive HEPATITIS B SURFACE ANTIGEN (2) (BEAKER) (test Nonreactive Nonreactive rftk=1247) RAD, MANDIBLE, LESS THAN 4 [id number] 12:28:00Reason for exam:->fever, dental cariesFINAL REPORT Mandible [...] air cells are well aerated. Signed: [facility] Verified Date/Time: 11/16/2017 12:28:43 Reading Location: [facility] Radiology Reading Room RAD, CHEST, 2 [id number] 10:47:00Reason for exam:-> fever, chest painFINAL REPORT [...] No pneumothorax is seen. Signed: [facility] Verified Date/Time: 11/16/2017 10:47:19 Reading Location: [facility] URINE [id number] 09:53:00 Test Item Value Reference Range Comments CULTURE (BEAKER) (test pjfp=5608) >100,000 col/mL skin valentino CBC W/PLT COUNT & AUTO [id number] 09:20:00 Test Item Value Reference Range Comments WHITE BLOOD CELL COUNT (BEAKER) (test zgpe=036) 18.6 K/ L 3.5-10.5 RED BLOOD CELL COUNT (BEAKER) (test mijm=526) 2.63 M/ L 3.93-5.22 HEMOGLOBIN (BEAKER) (test smwz=565) 7.6 GM/DL 11.2-15.7 HEMATOCRIT (BEAKER) (test yygl=308) 23.8 % 34.1-44.9 MEAN CORPUSCULAR VOLUME (BEAKER) (test bvpu=484) 90.5 fL 79.4-94.8 MEAN CORPUSCULAR HEMOGLOBIN (BEAKER) (test 28.9 pg 25.6-32.2 vhzf=829) MEAN CORPUSCULAR HEMOGLOBIN CONC (BEAKER) (test 31.9 GM/DL 32.2-35.5 sxes=865) RED CELL DISTRIBUTION WIDTH (BEAKER) (test 19.9 % 11.7-14.4 mjzm=740) PLATELET COUNT (BEAKER) (test ekjs=754) 330 K/CU MM 150-450 MEAN PLATELET VOLUME (BEAKER) (test onja=873) 11.9 fL 9.4-12.3 NUCLEATED RED BLOOD CELLS (BEAKER) (test 1 /100 WBC 0-0 mjnm=625) NEUTROPHILS RELATIVE PERCENT (BEAKER) (test 65 % zqlb=127) LYMPHOCYTES RELATIVE PERCENT (BEAKER) (test 22 % wnnm=260) MONOCYTES RELATIVE PERCENT (BEAKER) (test 10 % lros=405) EOSINOPHILS RELATIVE PERCENT (BEAKER) (test 2 % etfe=763) BASOPHILS RELATIVE PERCENT (BEAKER) (test 0 % noqf=790) NEUTROPHILS ABSOLUTE COUNT (BEAKER) (test 12.09 K/ L 1.56-6.13 hbbq=127) LYMPHOCYTES ABSOLUTE COUNT (BEAKER) (test 4.02 K/ L 1.18-3.74 itoe=158) MONOCYTES ABSOLUTE COUNT (BEAKER) (test 1.90 K/ L 0.24-0.36 fhyr=695) EOSINOPHILS ABSOLUTE COUNT (BEAKER) (test 0.41 K/ L 0.04-0.36 obme=470) BASOPHILS ABSOLUTE COUNT (BEAKER) (test 0.05 K/ L 0.01-0.08 lpja=841) IMMATURE GRANULOCYTES-RELATIVE PERCENT (BEAKER) 0 % 0-1 (test krxe=0136) (MANUAL DIFFERENTIAL)2017-11-16 09:20:00 Test Item Value Reference Range Comments TOTAL COUNTED (BEAKER) (test mtjt=6714) WBC MORPHOLOGY (BEAKER) (test evco=980) Normal PLT MORPHOLOGY (BEAKER) (test lgyt=696) Normal POLYCHROMATOPHILLIC RBCS(BEAKER) (test grlz=716) 1+ few SICKLE CELLS (BEAKER) (test mpnb=731) 1+ few TARGET CELLS (BEAKER) (test gaxv=529) 2+ moderate CALCIUM, [id number] 07:28:00 Test Item Value Reference Range Comments CALCIUM IONIZED (BEAKER) (test apso=019) 0.97 mmol/L 1.12-1.27 PH, BLOOD (BEAKER) (test vrqr=6807) 7.45 [id number] 05:48:00 Test Item Value Reference Range Comments PHOSPHORUS (BEAKER) (test fkfb=486) 4.8 mg/dL 2.3-4.7 [id number] 05:48:00 Test Item Value Reference Range Comments MAGNESIUM (BEAKER) (test rquc=123) 1.6 mg/dL 1.6-2.6 BASIC METABOLIC [id number] 05:48:00 Test Item Value Reference Range Comments SODIUM (BEAKER) (test 139 meq/L 136-145 dkyq=385) POTASSIUM (BEAKER) (test 3.9 meq/L 3.5-5.1 djbr=648) CHLORIDE (BEAKER) (test 98 meq/L 98-107 evjb=205) CO2 (BEAKER) (test 32 meq/L 22-29 vfet=732) BLOOD UREA NITROGEN 23 mg/dL 7-21 (BEAKER) (test vpxu=287) CREATININE (BEAKER) (test 1.10 mg/dL 0.57-1.25 vyek=360) GLUCOSE RANDOM (BEAKER) 115 mg/dL 70-105 (test oiua=207) CALCIUM (BEAKER) (test 9.0 mg/dL 8.4-10.2 mqrf=366) EGFR (BEAKER) (test 67 mL/min/1.73 sq m ESTIMATED GFR IS NOT cnva=0983) ACCURATE CREATININE CLEARANCE IN PREDICTING GLOMERULAR FILTRATION RATE. ESTIMATED GFR IS NOT APPLICABLE FOR DIALYSIS PATIENTS. URINALYSIS W/ [id number] 19:14:00 Test Item Value Reference Range Comments COLOR (BEAKER) (test fnkp=027) Yellow CLARITY (BEAKER) (test bqvv=262) Clear SPECIFIC GRAVITY UA (BEAKER) (test hyyv=583) 1.006 1.001-1.035 PH UA (BEAKER) (test xpid=148) 7.5 5.0-8.0 PROTEIN UA (BEAKER) (test wleu=985) Negative Negative GLUCOSE UA (BEAKER) (test clgl=333) Negative Negative KETONES UA (BEAKER) (test ciig=529) Negative Negative BILIRUBIN UA (BEAKER) (test mrzq=305) Negative Negative BLOOD UA (BEAKER) (test oqxo=920) Trace Negative NITRITE UA (BEAKER) (test rqul=067) Negative Negative LEUKOCYTE ESTERASE UA (BEAKER) (test pzvo=491) Small Negative UROBILINOGEN UA (BEAKER) (test tzwe=922) 0.2 mg/dL 0.2-1.0 RBC UA (BEAKER) (test njgz=249) < /HPF WBC UA (BEAKER) (test jfwi=350) 7 /HPF BACTERIA (BEAKER) (test ocsg=320) Rare SQUAMOUS EPITHELIAL (BEAKER) (test frgr=545) 1 /HPF SOURCE(BEAKER) (test dqif=9991) Urine, Voided [id number] 13:26:00 Test Item Value Reference Range Comments LIPASE (BEAKER) (test zukr=789) 95 U/L 8-78 RAD, ABDOMEN/KUB, 1 VIEW [id number] 12:43:00Reason for exam:->abdominal painFINAL REPORT Abdomen one [...] MDReport Verified Date/Time: 11/15/2017 12:43:04 Reading Location: [facility] Radiology Reading Room CBC W/PLT COUNT & AUTO [id number] 10:00:00 Test Item Value Reference Range Comments WHITE BLOOD CELL COUNT (BEAKER) (test yyiw=862) 18.8 K/ L 3.5-10.5 RED BLOOD CELL COUNT (BEAKER) (test bclc=054) 1.83 M/ L 3.93-5.22 HEMOGLOBIN (BEAKER) (test pbyy=688) 5.4 GM/DL 11.2-15.7 HEMATOCRIT (BEAKER) (test loew=730) 16.7 % 34.1-44.9 MEAN CORPUSCULAR VOLUME (BEAKER) (test mfwd=410) 91.3 fL 79.4-94.8 MEAN CORPUSCULAR HEMOGLOBIN (BEAKER) (test 29.5 pg 25.6-32.2 fiuh=305) MEAN CORPUSCULAR HEMOGLOBIN CONC (BEAKER) (test 32.3 GM/DL 32.2-35.5 zftt=196) RED CELL DISTRIBUTION WIDTH (BEAKER) (test 21.7 % 11.7-14.4 otkl=020) PLATELET COUNT (BEAKER) (test kfhy=251) 340 K/CU MM 150-450 MEAN PLATELET VOLUME (BEAKER) (test pzur=680) 11.3 fL 9.4-12.3 NUCLEATED RED BLOOD CELLS (BEAKER) (test 2 /100 WBC 0-0 ccto=155) NEUTROPHILS RELATIVE PERCENT (BEAKER) (test 65 % vkad=498) LYMPHOCYTES RELATIVE PERCENT (BEAKER) (test 23 % cnka=074) MONOCYTES RELATIVE PERCENT (BEAKER) (test 10 % cgxi=752) EOSINOPHILS RELATIVE PERCENT (BEAKER) (test 1 % rtvk=175) BASOPHILS RELATIVE PERCENT (BEAKER) (test 0 % cbvs=053) NEUTROPHILS ABSOLUTE COUNT (BEAKER) (test 12.25 K/ L 1.56-6.13 cceb=172) LYMPHOCYTES ABSOLUTE COUNT (BEAKER) (test 4.31 K/ L 1.18-3.74 dpqz=572) MONOCYTES ABSOLUTE COUNT (BEAKER) (test 1.88 K/ L 0.24-0.36 cztx=437) EOSINOPHILS ABSOLUTE COUNT (BEAKER) (test 0.26 K/ L 0.04-0.36 gsff=952) BASOPHILS ABSOLUTE COUNT (BEAKER) (test 0.02 K/ L 0.01-0.08 eevx=273) IMMATURE GRANULOCYTES-RELATIVE PERCENT (BEAKER) 1 % 0-1 (test kqcz=7592) (MANUAL DIFFERENTIAL)2017-11-15 10:00:00 Test Item Value Reference Range Comments TOTAL COUNTED (BEAKER) (test akml=3171) ATYPICAL LYMPHS(BEAKER) (test krvw=9682) Present LARGE PLT(BEAKER) (test dasj=1768) Present HYPOCHROMIA (BEAKER) (test dnfd=888) 1+ few POLYCHROMATOPHILLIC RBCS(BEAKER) (test uhvx=219) 1+ few SICKLE CELLS (BEAKER) (test durr=344) 1+ few TARGET CELLS (BEAKER) (test yrpg=775) 1+ few U/S, ENDOVAGINAL (EV)2017-11-15 09:03:00Reason for [...] MDReport Verified Date/Time: 2017 09:03:15 Reading Location: [address] Ultrasound Reading Room CBC W/ PLT COUNT & AUTO [id number] 08:32:00 Test Item Value Reference Range Comments WHITE BLOOD CELL COUNT (BEAKER) (test rlml=782) 19.8 K/ L 3.5-10.5 RED BLOOD CELL COUNT (BEAKER) (test tleh=876) 1.89 M/ L 3.93-5.22 HEMOGLOBIN (BEAKER) (test hepq=055) 5.6 GM/DL 11.2-15.7 HEMATOCRIT (BEAKER) (test yykm=108) 17.2 % 34.1-44.9 MEAN CORPUSCULAR VOLUME (BEAKER) (test dkai=932) 91.0 fL 79.4-94.8 MEAN CORPUSCULAR HEMOGLOBIN (BEAKER) (test 29.6 pg 25.6-32.2 fnol=450) MEAN CORPUSCULAR HEMOGLOBIN CONC (BEAKER) (test 32.6 GM/DL 32.2-35.5 pwsm=999) RED CELL DISTRIBUTION WIDTH (BEAKER) (test 21.4 % 11.7-14.4 phwi=966) PLATELET COUNT (BEAKER) (test wtpg=685) 366 K/CU MM 150-450 MEAN PLATELET VOLUME (BEAKER) (test litp=981) 11.6 fL 9.4-12.3 NUCLEATED RED BLOOD CELLS (BEAKER) (test 2 /100 WBC 0-0 bgxu=639) NEUTROPHILS RELATIVE PERCENT (BEAKER) (test 70 % kefi=443) LYMPHOCYTES RELATIVE PERCENT (BEAKER) (test 18 % pvoa=320) MONOCYTES RELATIVE PERCENT (BEAKER) (test 10 % nrtb=412) EOSINOPHILS RELATIVE PERCENT (BEAKER) (test 1 % zyae=660) BASOPHILS RELATIVE PERCENT (BEAKER) (test 0 % ktur=424) NEUTROPHILS ABSOLUTE COUNT (BEAKER) (test 13.93 K/ L 1.56-6.13 pmok=535) LYMPHOCYTES ABSOLUTE COUNT (BEAKER) (test 3.51 K/ L 1.18-3.74 ifcc=709) MONOCYTES ABSOLUTE COUNT (BEAKER) (test 2.03 K/ L 0.24-0.36 oecc=671) EOSINOPHILS ABSOLUTE COUNT (BEAKER) (test 0.23 K/ L 0.04-0.36 byre=605) BASOPHILS ABSOLUTE COUNT (BEAKER) (test 0.02 K/ L 0.01-0.08 nnaa=017) IMMATURE GRANULOCYTES-RELATIVE PERCENT (BEAKER) 0 % 0-1 (test lyqp=6269) [id number] 06:16:00 Test Item Value Reference Range Comments PHOSPHORUS (BEAKER) (test tgvf=083) 4.6 mg/dL 2.3-4.7 [id number] 06:16:00 Test Item Value Reference Range Comments MAGNESIUM (BEAKER) (test pgmo=454) 1.6 mg/dL 1.6-2.6 BASIC METABOLIC [id number] 06:16:00 Test Item Value Reference Range Comments SODIUM (BEAKER) (test 139 meq/L 136-145 loow=083) POTASSIUM (BEAKER) (test 3.9 meq/L 3.5-5.1 zycc=250) CHLORIDE (BEAKER) (test 97 meq/L 98-107 nyja=325) CO2 (BEAKER) (test 33 meq/L 22-29 kxpa=063) BLOOD UREA NITROGEN 24 mg/dL 7-21 (BEAKER) (test lopr=097) CREATININE (BEAKER) (test 1.15 mg/dL 0.57-1.25 mhty=771) GLUCOSE RANDOM (BEAKER) 104 mg/dL 70-105 (test rnqb=294) CALCIUM (BEAKER) (test 9.1 mg/dL 8.4-10.2 gchv=025) EGFR (BEAKER) (test 64 mL/min/1.73 sq m ESTIMATED GFR IS NOT hxlu=8918) ACCURATE CREATININE CLEARANCE IN PREDICTING GLOMERULAR FILTRATION RATE. ESTIMATED GFR IS NOT APPLICABLE FOR DIALYSIS PATIENTS. HEPATIC FUNCTION [id number] 06:16:00 Test Item Value Reference Range Comments TOTAL PROTEIN (BEAKER) (test ynos=707) 8.2 gm/dL 6.0-8.3 ALBUMIN (BEAKER) (test ztpb=7873) 2.9 g/dL 3.5-5.0 BILIRUBIN TOTAL (BEAKER) (test jkpv=761) 1.1 mg/dL 0.2-1.2 BILIRUBIN DIRECT (BEAKER) (test qrwi=711) 0.5 mg/dL 0.1-0.5 ALKALINE PHOSPHATASE (BEAKER) (test dmuw=410) 164 U/L 40-150 AST (SGOT) (BEAKER) (test xdrr=145) 76 U/L 5-34 ALT (SGPT) (BEAKER) (test bxsm=742) 34 U/L 6-55 CALCIUM, [id number] 06:00:00 Test Item Value Reference Range Comments CALCIUM IONIZED (BEAKER) (test uvgy=076) 0.93 mmol/L 1.12-1.27 PH, BLOOD (BEAKER) (test tnzm=9812) 7.52 URINALYSIS W/ [id number] 18:32:00 Test Item Value Reference Range Comments COLOR (BEAKER) (test jndb=155) Light Yellow CLARITY (BEAKER) (test xnfl=324) Clear SPECIFIC GRAVITY UA (BEAKER) (test zmfm=897) 1.006 1.001-1.035 PH UA (BEAKER) (test gvtc=009) 7.0 5.0-8.0 PROTEIN UA (BEAKER) (test wmsz=746) Negative Negative GLUCOSE UA (BEAKER) (test krtb=277) Negative Negative KETONES UA (BEAKER) (test gaep=869) Negative Negative BILIRUBIN UA (BEAKER) (test fpuh=596) Negative Negative BLOOD UA (BEAKER) (test iokk=216) Trace Negative NITRITE UA (BEAKER) (test fobr=850) Negative Negative LEUKOCYTE ESTERASE UA (BEAKER) (test nelt=450) Small Negative UROBILINOGEN UA (BEAKER) (test fbpf=138) 0.2 mg/dL 0.2-1.0 RBC UA (BEAKER) (test llzo=743) 1 /HPF WBC UA (BEAKER) (test qiqc=965) 7 /HPF BACTERIA (BEAKER) (test psyj=477) Rare MUCUS (BEAKER) (test divt=3802) Rare SQUAMOUS EPITHELIAL (BEAKER) (test rpjj=931) 4 /HPF SOURCE(BEAKER) (test totf=9946) Urine, Voided CALCIUM, [id number] 07:19:00 Test Item Value Reference Range Comments CALCIUM IONIZED (BEAKER) (test ddps=369) 1.03 mmol/L 1.12-1.27 PH, BLOOD (BEAKER) (test utab=0892) 7.40 CBC W/PLT COUNT & AUTO [id number] 06:26:00 Test Item Value Reference Range Comments WHITE BLOOD CELL COUNT (BEAKER) (test yzhr=443) 18.5 K/ L 3.5-10.5 RED BLOOD CELL COUNT (BEAKER) (test srtn=659) 2.02 M/ L 3.93-5.22 HEMOGLOBIN (BEAKER) (test acsd=855) 6.0 GM/DL 11.2-15.7 HEMATOCRIT (BEAKER) (test cslj=949) 18.5 % 34.1-44.9 MEAN CORPUSCULAR VOLUME (BEAKER) (test lxvd=779) 91.6 fL 79.4-94.8 MEAN CORPUSCULAR HEMOGLOBIN (BEAKER) (test 29.7 pg 25.6-32.2 clcu=288) MEAN CORPUSCULAR HEMOGLOBIN CONC (BEAKER) (test 32.4 GM/DL 32.2-35.5 pnyf=228) RED CELL DISTRIBUTION WIDTH (BEAKER) (test 21.9 % 11.7-14.4 okml=340) PLATELET COUNT (BEAKER) (test tctq=393) 337 K/CU MM 150-450 MEAN PLATELET VOLUME (BEAKER) (test ylrx=669) 11.7 fL 9.4-12.3 NUCLEATED RED BLOOD CELLS (BEAKER) (test 4 /100 WBC 0-0 ottr=354) NEUTROPHILS RELATIVE PERCENT (BEAKER) (test 76 % loua=010) LYMPHOCYTES RELATIVE PERCENT (BEAKER) (test 16 % swac=180) MONOCYTES RELATIVE PERCENT (BEAKER) (test 6 % ktla=317) EOSINOPHILS RELATIVE PERCENT (BEAKER) (test 1 % qswl=417) BASOPHILS RELATIVE PERCENT (BEAKER) (test 0 % vels=664) NEUTROPHILS ABSOLUTE COUNT (BEAKER) (test 13.98 K/ L 1.56-6.13 mevc=918) LYMPHOCYTES ABSOLUTE COUNT (BEAKER) (test 3.02 K/ L 1.18-3.74 fddm=133) MONOCYTES ABSOLUTE COUNT (BEAKER) (test 1.13 K/ L 0.24-0.36 masn=010) EOSINOPHILS ABSOLUTE COUNT (BEAKER) (test 0.09 K/ L 0.04-0.36 jpzy=798) BASOPHILS ABSOLUTE COUNT (BEAKER) (test 0.05 K/ L 0.01-0.08 mpgy=120) IMMATURE GRANULOCYTES-RELATIVE PERCENT (BEAKER) 1 % 0-1 (test pwkn=6020) [id number] 06:21:00 Test Item Value Reference Range Comments PHOSPHORUS (BEAKER) (test ehor=381) 4.3 mg/dL 2.3-4.7 [id number] 06:21:00 Test Item Value Reference Range Comments MAGNESIUM (BEAKER) (test fzyu=773) 2.1 mg/dL 1.6-2.6 BASIC METABOLIC [id number] 06:21:00 Test Item Value Reference Range Comments SODIUM (BEAKER) (test 139 meq/L 136-145 jykr=740) POTASSIUM (BEAKER) (test 4.0 meq/L 3.5-5.1 uczv=636) CHLORIDE (BEAKER) (test 99 meq/L 98-107 ltow=489) CO2 (BEAKER) (test 31 meq/L 22-29 ptwu=019) BLOOD UREA NITROGEN 23 mg/dL 7-21 (BEAKER) (test mbar=948) CREATININE (BEAKER) (test 1.29 mg/dL 0.57-1.25 kuzd=357) GLUCOSE RANDOM (BEAKER) 116 mg/dL 70-105 (test dpau=143) CALCIUM (BEAKER) (test 8.8 mg/dL 8.4-10.2 pxfr=914) EGFR (BEAKER) (test 56 mL/min/1.73 sq m ESTIMATED GFR IS NOT jeey=5888) ACCURATE CREATININE CLEARANCE IN PREDICTING GLOMERULAR FILTRATION RATE. ESTIMATED GFR IS NOT APPLICABLE FOR DIALYSIS PATIENTS. B-TYPE NATRIURETIC FACTOR (BNP)2017-11-13 07:27:00 Test Item Value Reference Range Comments B-TYPE NATRIURETIC PEPTIDE (BEAKER) (test 166 pg/mL 0-100 tjzp=132) [id number] 07:26:00 Test Item Value Reference Range Comments PHOSPHORUS (BEAKER) (test slpl=964) 4.6 mg/dL 2.3-4.7 [id number] 07:26:00 Test Item Value Reference Range Comments MAGNESIUM (BEAKER) (test olpw=197) 1.6 mg/dL 1.6-2.6 BASIC METABOLIC [id number] 07:26:00 Test Item Value Reference Range Comments SODIUM (BEAKER) (test 139 meq/L 136-145 czyu=541) POTASSIUM (BEAKER) (test 3.5 meq/L 3.5-5.1 sqxv=501) CHLORIDE (BEAKER) (test 101 meq/L 98-107 fyek=120) CO2 (BEAKER) (test 32 meq/L 22-29 uhgp=911) BLOOD UREA NITROGEN 14 mg/dL 7-21 (BEAKER) (test jxid=473) CREATININE (BEAKER) (test 1.09 mg/dL 0.57-1.25 rxgw=202) GLUCOSE RANDOM (BEAKER) 92 mg/dL 70-105 (test xuci=883) CALCIUM (BEAKER) (test 8.5 mg/dL 8.4-10.2 hjzl=011) EGFR (BEAKER) (test 68 mL/min/1.73 sq m ESTIMATED GFR IS NOT peup=8498) ACCURATE CREATININE CLEARANCE IN PREDICTING GLOMERULAR FILTRATION RATE. ESTIMATED GFR IS NOT APPLICABLE FOR DIALYSIS PATIENTS. CBC W/PLT COUNT & AUTO [id number] 07:23:00 Test Item Value Reference Range Comments WHITE BLOOD CELL COUNT (BEAKER) (test ycvq=354) 18.4 K/ L 3.5-10.5 RED BLOOD CELL COUNT (BEAKER) (test relr=227) 2.03 M/ L 3.93-5.22 HEMOGLOBIN (BEAKER) (test amws=331) 6.0 GM/DL 11.2-15.7 HEMATOCRIT (BEAKER) (test xnre=514) 18.8 % 34.1-44.9 MEAN CORPUSCULAR VOLUME (BEAKER) (test eyfa=324) 92.6 fL 79.4-94.8 MEAN CORPUSCULAR HEMOGLOBIN (BEAKER) (test 29.6 pg 25.6-32.2 ttwo=653) MEAN CORPUSCULAR HEMOGLOBIN CONC (BEAKER) (test 31.9 GM/DL 32.2-35.5 sbzh=895) RED CELL DISTRIBUTION WIDTH (BEAKER) (test 22.9 % 11.7-14.4 ynul=002) PLATELET COUNT (BEAKER) (test mzcs=154) 302 K/CU MM 150-450 MEAN PLATELET VOLUME (BEAKER) (test yhjp=096) 11.3 fL 9.4-12.3 NUCLEATED RED BLOOD CELLS (BEAKER) (test 7 /100 WBC 0-0 cmok=366) NEUTROPHILS RELATIVE PERCENT (BEAKER) (test 74 % dvkh=746) LYMPHOCYTES RELATIVE PERCENT (BEAKER) (test 18 % dreu=397) MONOCYTES RELATIVE PERCENT (BEAKER) (test 7 % wnqo=052) EOSINOPHILS RELATIVE PERCENT (BEAKER) (test 0 % pdkf=798) BASOPHILS RELATIVE PERCENT (BEAKER) (test 0 % rrhg=860) NEUTROPHILS ABSOLUTE COUNT (BEAKER) (test 13.58 K/ L 1.56-6.13 njsk=417) LYMPHOCYTES ABSOLUTE COUNT (BEAKER) (test 3.24 K/ L 1.18-3.74 dqoh=589) MONOCYTES ABSOLUTE COUNT (BEAKER) (test 1.23 K/ L 0.24-0.36 qfgj=946) EOSINOPHILS ABSOLUTE COUNT (BEAKER) (test 0.07 K/ L 0.04-0.36 wanb=426) BASOPHILS ABSOLUTE COUNT (BEAKER) (test 0.05 K/ L 0.01-0.08 vhfv=563) IMMATURE GRANULOCYTES-RELATIVE PERCENT (BEAKER) 1 % 0-1 (test czhg=7643) CALCIUM, [id number] 07:08:00 Test Item Value Reference Range Comments CALCIUM IONIZED (BEAKER) (test ilpb=903) 1.03 mmol/L 1.12-1.27 PH, BLOOD (BEAKER) (test ifzm=3921) 7.38 CBC W/PLT COUNT & AUTO [id number] 08:23:00 Test Item Value Reference Range Comments WHITE BLOOD CELL COUNT (BEAKER) (test cnrt=013) 20.4 K/ L 3.5-10.5 RED BLOOD CELL COUNT (BEAKER) (test cetg=392) 2.08 M/ L 3.93-5.22 HEMOGLOBIN (BEAKER) (test yxif=122) 6.4 GM/DL 11.2-15.7 HEMATOCRIT (BEAKER) (test gzai=442) 19.7 % 34.1-44.9 MEAN CORPUSCULAR VOLUME (BEAKER) (test zvnt=962) 94.7 fL 79.4-94.8 MEAN CORPUSCULAR HEMOGLOBIN (BEAKER) (test 30.8 pg 25.6-32.2 luyr=124) MEAN CORPUSCULAR HEMOGLOBIN CONC (BEAKER) (test 32.5 GM/DL 32.2-35.5 meoi=140) RED CELL DISTRIBUTION WIDTH (BEAKER) (test 24.3 % 11.7-14.4 fmfb=261) PLATELET COUNT (BEAKER) (test heoz=280) 290 K/CU MM 150-450 MEAN PLATELET VOLUME (BEAKER) (test nbuu=029) 11.5 fL 9.4-12.3 NUCLEATED RED BLOOD CELLS (BEAKER) (test 19 /100 WBC 0-0 tayy=555) NEUTROPHILS RELATIVE PERCENT (BEAKER) (test 75 % tyii=109) LYMPHOCYTES RELATIVE PERCENT (BEAKER) (test 16 % daic=185) MONOCYTES RELATIVE PERCENT (BEAKER) (test 8 % wqkm=307) EOSINOPHILS RELATIVE PERCENT (BEAKER) (test 0 % iwyw=791) BASOPHILS RELATIVE PERCENT (BEAKER) (test 0 % hsyi=050) NEUTROPHILS ABSOLUTE COUNT (BEAKER) (test 15.32 K/ L 1.56-6.13 zbcj=177) LYMPHOCYTES ABSOLUTE COUNT (BEAKER) (test 3.24 K/ L 1.18-3.74 cden=150) MONOCYTES ABSOLUTE COUNT (BEAKER) (test 1.61 K/ L 0.24-0.36 crkb=025) EOSINOPHILS ABSOLUTE COUNT (BEAKER) (test 0.05 K/ L 0.04-0.36 izfo=817) BASOPHILS ABSOLUTE COUNT (BEAKER) (test 0.04 K/ L 0.01-0.08 uuwu=114) IMMATURE GRANULOCYTES-RELATIVE PERCENT (BEAKER) 0 % 0-1 (test twip=6976) (MANUAL DIFFERENTIAL)2017-11-12 08:23:00 Test Item Value Reference Range Comments TOTAL COUNTED (BEAKER) (test xgdo=6372) WBC MORPHOLOGY (BEAKER) (test ghfy=550) Normal LARGE PLT(BEAKER) (test dqbq=1505) Present HYPOCHROMIA (BEAKER) (test uhvu=976) 1+ few POLYCHROMATOPHILLIC RBCS(BEAKER) (test jfct=455) 1+ few SICKLE CELLS (BEAKER) (test oxhs=286) 1+ few TARGET CELLS (BEAKER) (test ztnz=496) 1+ few [id number] 08:11:00 Test Item Value Reference Range Comments PHOSPHORUS (BEAKER) (test yqkp=540) 4.3 mg/dL 2.3-4.7 [id number] 08:11:00 Test Item Value Reference Range Comments MAGNESIUM (BEAKER) (test jcgd=935) 1.3 mg/dL 1.6-2.6 BASIC METABOLIC [id number] 08:11:00 Test Item Value Reference Range Comments SODIUM (BEAKER) (test 140 meq/L 136-145 kkde=668) POTASSIUM (BEAKER) (test 3.4 meq/L 3.5-5.1 kccu=914) CHLORIDE (BEAKER) (test 103 meq/L 98-107 zcof=000) CO2 (BEAKER) (test 27 meq/L 22-29 atco=815) BLOOD UREA NITROGEN 15 mg/dL 7-21 (BEAKER) (test xlxe=055) CREATININE (BEAKER) (test 1.10 mg/dL 0.57-1.25 xnaj=289) GLUCOSE RANDOM (BEAKER) 91 mg/dL 70-105 (test faql=632) CALCIUM (BEAKER) (test 8.5 mg/dL 8.4-10.2 hnjv=637) EGFR (BEAKER) (test 67 mL/min/1.73 sq m ESTIMATED GFR IS NOT ydnd=2888) ACCURATE CREATININE CLEARANCE IN PREDICTING GLOMERULAR FILTRATION RATE. ESTIMATED GFR IS NOT APPLICABLE FOR DIALYSIS PATIENTS. CALCIUM, [id number] 07:19:00 Test Item Value Reference Range Comments CALCIUM IONIZED (BEAKER) (test oobv=012) 0.98 mmol/L 1.12-1.27 PH, BLOOD (BEAKER) (test qnnd=0184) 7.39 BLOOD [id number] 00:00:00 Test Item Value Reference Range Comments CULTURE (BEAKER) (test azwr=3046) No growth in 5 days CBC W/PLT COUNT & AUTO [id number] 13:18:00 Test Item Value Reference Range Comments WHITE BLOOD CELL COUNT (BEAKER) (test qdrv=739) 20.7 K/ L 3.5-10.5 RED BLOOD CELL COUNT (BEAKER) (test rhbl=663) 2.12 M/ L 3.93-5.22 HEMOGLOBIN (BEAKER) (test tbin=821) 6.7 GM/DL 11.2-15.7 HEMATOCRIT (BEAKER) (test shkt=392) 20.4 % 34.1-44.9 MEAN CORPUSCULAR VOLUME (BEAKER) (test gbxh=125) 96.2 fL 79.4-94.8 MEAN CORPUSCULAR HEMOGLOBIN (BEAKER) (test 31.6 pg 25.6-32.2 pmmb=109) MEAN CORPUSCULAR HEMOGLOBIN CONC (BEAKER) (test 32.8 GM/DL 32.2-35.5 ufmr=062) RED CELL DISTRIBUTION WIDTH (BEAKER) (test 25.9 % 11.7-14.4 zfvx=268) PLATELET COUNT (BEAKER) (test tcrv=765) 262 K/CU MM 150-450 MEAN PLATELET VOLUME (BEAKER) (test qygm=257) 11.2 fL 9.4-12.3 NUCLEATED RED BLOOD CELLS (BEAKER) (test 40 /100 WBC 0-0 fuma=986) NEUTROPHILS RELATIVE PERCENT (BEAKER) (test 76 % bdsq=985) LYMPHOCYTES RELATIVE PERCENT (BEAKER) (test 16 % usop=322) MONOCYTES RELATIVE PERCENT (BEAKER) (test 8 % icmn=898) EOSINOPHILS RELATIVE PERCENT (BEAKER) (test 0 % wosy=402) BASOPHILS RELATIVE PERCENT (BEAKER) (test 0 % hxgw=957) NEUTROPHILS ABSOLUTE COUNT (BEAKER) (test 15.60 K/ L 1.56-6.13 sufq=695) LYMPHOCYTES ABSOLUTE COUNT (BEAKER) (test 3.23 K/ L 1.18-3.74 vspw=793) MONOCYTES ABSOLUTE COUNT (BEAKER) (test 1.54 K/ L 0.24-0.36 vyvo=822) EOSINOPHILS ABSOLUTE COUNT (BEAKER) (test 0.02 K/ L 0.04-0.36 ubdu=063) BASOPHILS ABSOLUTE COUNT (BEAKER) (test 0.05 K/ L 0.01-0.08 ilch=059) IMMATURE GRANULOCYTES-RELATIVE PERCENT (BEAKER) 1 % 0-1 (test shoi=2931) (MANUAL DIFFERENTIAL)2017-11-11 13:18:00 Test Item Value Reference Range Comments TOTAL COUNTED (BEAKER) (test cjhb=1818) WBC MORPHOLOGY (BEAKER) (test npcd=483) Normal LARGE PLT(BEAKER) (test xnnf=7551) Present POLYCHROMATOPHILLIC RBCS(BEAKER) (test ujwu=720) 1+ few SICKLE CELLS (BEAKER) (test qtbv=493) 1+ few TARGET CELLS (BEAKER) (test ktgt=137) 1+ few [id number] 08:05:00 Test Item Value Reference Range Comments PHOSPHORUS (BEAKER) (test plaj=406) 5.0 mg/dL 2.3-4.7 [id number] 08:05:00 Test Item Value Reference Range Comments MAGNESIUM (BEAKER) (test mqwy=273) 1.6 mg/dL 1.6-2.6 BASIC METABOLIC [id number] 08:05:00 Test Item Value Reference Range Comments SODIUM (BEAKER) (test 140 meq/L 136-145 hlex=693) POTASSIUM (BEAKER) (test 3.7 meq/L 3.5-5.1 usye=492) CHLORIDE (BEAKER) (test 107 meq/L 98-107 waxb=968) CO2 (BEAKER) (test 24 meq/L 22-29 obao=296) BLOOD UREA NITROGEN 19 mg/dL 7-21 (BEAKER) (test ipey=583) CREATININE (BEAKER) (test 1.23 mg/dL 0.57-1.25 uzhx=016) GLUCOSE RANDOM (BEAKER) 96 mg/dL 70-105 (test hazf=175) CALCIUM (BEAKER) (test 8.5 mg/dL 8.4-10.2 vtex=881) EGFR (BEAKER) (test 59 mL/min/1.73 sq m ESTIMATED GFR IS NOT kyeu=6569) ACCURATE CREATININE CLEARANCE IN PREDICTING GLOMERULAR FILTRATION RATE. ESTIMATED GFR IS NOT APPLICABLE FOR DIALYSIS PATIENTS. CALCIUM, [id number] 06:38:00 Test Item Value Reference Range Comments CALCIUM IONIZED (BEAKER) (test wvql=550) 1.07 mmol/L 1.12-1.27 PH, BLOOD (BEAKER) (test oplq=5338) 7.31 CBC W/PLT COUNT & AUTO [id number] 14:53:00 Test Item Value Reference Range Comments WHITE BLOOD CELL COUNT (BEAKER) (test ityt=554) 21.8 K/ L 3.5-10.5 RED BLOOD CELL COUNT (BEAKER) (test hfyc=636) 2.17 M/ L 3.93-5.22 HEMOGLOBIN (BEAKER) (test zkmf=636) 6.8 GM/DL 11.2-15.7 HEMATOCRIT (BEAKER) (test hgoh=484) 21.3 % 34.1-44.9 MEAN CORPUSCULAR VOLUME (BEAKER) (test ufwf=673) 98.2 fL 79.4-94.8 MEAN CORPUSCULAR HEMOGLOBIN (BEAKER) (test 31.3 pg 25.6-32.2 uxdg=734) MEAN CORPUSCULAR HEMOGLOBIN CONC (BEAKER) (test 31.9 GM/DL 32.2-35.5 veph=381) RED CELL DISTRIBUTION WIDTH (BEAKER) (test 27.6 % 11.7-14.4 bplo=277) PLATELET COUNT (BEAKER) (test apai=803) 244 K/CU MM 150-450 MEAN PLATELET VOLUME (BEAKER) (test jvjs=004) 11.4 fL 9.4-12.3 NUCLEATED RED BLOOD CELLS (BEAKER) (test 80 /100 WBC 0-0 lsiu=379) NEUTROPHILS RELATIVE PERCENT (BEAKER) (test 82 % oubg=838) LYMPHOCYTES RELATIVE PERCENT (BEAKER) (test 7 % ooki=686) MONOCYTES RELATIVE PERCENT (BEAKER) (test 10 % hnzm=359) EOSINOPHILS RELATIVE PERCENT (BEAKER) (test 0 % ntyx=914) BASOPHILS RELATIVE PERCENT (BEAKER) (test 0 % gtpc=032) NEUTROPHILS ABSOLUTE COUNT (BEAKER) (test 17.85 K/ L 1.56-6.13 dols=461) LYMPHOCYTES ABSOLUTE COUNT (BEAKER) (test 1.60 K/ L 1.18-3.74 fbfp=751) MONOCYTES ABSOLUTE COUNT (BEAKER) (test 2.14 K/ L 0.24-0.36 cbof=165) EOSINOPHILS ABSOLUTE COUNT (BEAKER) (test 0.03 K/ L 0.04-0.36 acog=898) BASOPHILS ABSOLUTE COUNT (BEAKER) (test 0.03 K/ L 0.01-0.08 ztmv=083) IMMATURE GRANULOCYTES-RELATIVE PERCENT (BEAKER) 1 % 0-1 (test wevx=3256) (MANUAL DIFFERENTIAL)2017-11-10 14:53:00 Test Item Value Reference Range Comments TOTAL COUNTED (BEAKER) (test holk=1588) WBC MORPHOLOGY (BEAKER) (test ezvg=064) Normal LARGE PLT(BEAKER) (test ulsl=1598) Present SCHISTOCYTES (BEAKER) (test mcco=258) 1+ few ACANTHOCYTES (BEAKER) (test pxfk=727) 1+ few ANISOCYTOSIS (BEAKER) (test zewn=623) 2+ moderate HYPOCHROMIA (BEAKER) (test zjtb=645) 2+ moderate MACROCYTES (BEAKER) (test ddrj=256) 3+ many MICROCYTES (BEAKER) (test kcka=569) 2+ moderate OVALOCYTES (BEAKER) (test ikld=646) 1+ few POIKILOCYTES (BEAKER) (test trxg=599) 3+ many POLYCHROMATOPHILLIC RBCS(BEAKER) (test dmqb=653) 2+ moderate SICKLE CELLS (BEAKER) (test wvnr=631) 2+ moderate TARGET CELLS (BEAKER) (test gsui=876) 1+ few BASIC METABOLIC [id number] 08:54:00 Test Item Value Reference Range Comments SODIUM (BEAKER) (test 140 meq/L 136-145 juzr=616) POTASSIUM (BEAKER) (test 4.0 meq/L 3.5-5.1 wjok=737) CHLORIDE (BEAKER) (test 109 meq/L 98-107 dhdo=192) CO2 (BEAKER) (test 19 meq/L 22-29 hbou=999) BLOOD UREA NITROGEN 21 mg/dL 7-21 (BEAKER) (test xbqy=808) CREATININE (BEAKER) (test 1.27 mg/dL 0.57-1.25 yuze=718) GLUCOSE RANDOM (BEAKER) 122 mg/dL 70-105 (test kghq=468) CALCIUM (BEAKER) (test 8.6 mg/dL 8.4-10.2 meze=277) EGFR (BEAKER) (test 57 mL/min/1.73 sq m ESTIMATED GFR IS NOT qfbp=7523) ACCURATE CREATININE CLEARANCE IN PREDICTING GLOMERULAR FILTRATION RATE. ESTIMATED GFR IS NOT APPLICABLE FOR DIALYSIS PATIENTS. [id number] 08:54:00 Test Item Value Reference Range Comments MAGNESIUM (BEAKER) (test cxjc=650) 1.5 mg/dL 1.6-2.6 [id number] 08:54:00 Test Item Value Reference Range Comments PHOSPHORUS (BEAKER) (test ychi=550) 4.5 mg/dL 2.3-4.7 COMPREHENSIVE METABOLIC [id number] 08:54:00 Test Item Value Reference Range Comments TOTAL PROTEIN (BEAKER) 8.2 gm/dL 6.0-8.3 (test xwor=371) ALBUMIN (BEAKER) (test 3.1 g/dL 3.5-5.0 fclc=9133) ALKALINE PHOSPHATASE 154 U/L 40-150 (BEAKER) (test tupz=466) BILIRUBIN TOTAL (BEAKER) 1.4 mg/dL 0.2-1.2 (test wuod=095) SODIUM (BEAKER) (test 140 meq/L 136-145 kelr=814) POTASSIUM (BEAKER) (test 4.0 meq/L 3.5-5.1 vzsu=863) CHLORIDE (BEAKER) (test 109 meq/L 98-107 hobm=939) CO2 (BEAKER) (test 19 meq/L 22-29 hxdh=109) BLOOD UREA NITROGEN 21 mg/dL 7-21 (BEAKER) (test vzvm=723) CREATININE (BEAKER) (test 1.27 mg/dL 0.57-1.25 vmmv=005) GLUCOSE RANDOM (BEAKER) 122 mg/dL 70-105 (test npsv=699) CALCIUM (BEAKER) (test 8.6 mg/dL 8.4-10.2 ligf=691) AST (SGOT) (BEAKER) (test 72 U/L 5-34 awgb=832) ALT (SGPT) (BEAKER) (test 50 U/L 6-55 jock=202) EGFR (BEAKER) (test 57 mL/min/1.73 sq m ESTIMATED GFR IS NOT pdys=7515) ACCURATE CREATININE CLEARANCE IN PREDICTING GLOMERULAR FILTRATION RATE. ESTIMATED GFR IS NOT APPLICABLE FOR DIALYSIS PATIENTS. CALCIUM, [id number] 07:21:00 Test Item Value Reference Range Comments CALCIUM IONIZED (BEAKER) (test izey=456) 1.04 mmol/L 1.12-1.27 PH, BLOOD (BEAKER) (test gdug=4399) 7.39 CBC W/PLT COUNT & AUTO [id number] 12:10:00 Test Item Value Reference Range Comments WHITE BLOOD CELL COUNT (BEAKER) (test iqzp=589) 20.8 K/ L 3.5-10.5 RED BLOOD CELL COUNT (BEAKER) (test mvyw=984) 2.11 M/ L 3.93-5.22 HEMOGLOBIN (BEAKER) (test uyjf=228) 6.6 GM/DL 11.2-15.7 HEMATOCRIT (BEAKER) (test awpk=053) 20.4 % 34.1-44.9 MEAN CORPUSCULAR VOLUME (BEAKER) (test xtlj=266) 96.7 fL 79.4-94.8 MEAN CORPUSCULAR HEMOGLOBIN (BEAKER) (test 31.3 pg 25.6-32.2 yalh=909) MEAN CORPUSCULAR HEMOGLOBIN CONC (BEAKER) (test 32.4 GM/DL 32.2-35.5 hmua=525) RED CELL DISTRIBUTION WIDTH (BEAKER) (test 27.2 % 11.7-14.4 xnwn=553) PLATELET COUNT (BEAKER) (test stxa=774) 237 K/CU MM 150-450 MEAN PLATELET VOLUME (BEAKER) (test ibbw=542) 10.7 fL 9.4-12.3 NUCLEATED RED BLOOD CELLS (BEAKER) (test 98 /100 WBC 0-0 msbi=948) NEUTROPHILS RELATIVE PERCENT (BEAKER) (test 82 % migd=406) LYMPHOCYTES RELATIVE PERCENT (BEAKER) (test 6 % zoal=438) MONOCYTES RELATIVE PERCENT (BEAKER) (test 11 % tdoo=672) EOSINOPHILS RELATIVE PERCENT (BEAKER) (test 0 % ltlc=591) BASOPHILS RELATIVE PERCENT (BEAKER) (test 0 % isua=428) NEUTROPHILS ABSOLUTE COUNT (BEAKER) (test 16.91 K/ L 1.56-6.13 vxfa=297) LYMPHOCYTES ABSOLUTE COUNT (BEAKER) (test 1.31 K/ L 1.18-3.74 yaid=456) MONOCYTES ABSOLUTE COUNT (BEAKER) (test 2.37 K/ L 0.24-0.36 rwjz=709) EOSINOPHILS ABSOLUTE COUNT (BEAKER) (test 0.01 K/ L 0.04-0.36 qkie=070) BASOPHILS ABSOLUTE COUNT (BEAKER) (test 0.05 K/ L 0.01-0.08 joxf=722) IMMATURE GRANULOCYTES-RELATIVE PERCENT (BEAKER) 1 % 0-1 (test jpgw=4220) (MANUAL DIFFERENTIAL)2017-11-09 12:10:00 Test Item Value Reference Range Comments TOTAL COUNTED (BEAKER) (test jqba=2984) WBC MORPHOLOGY (BEAKER) (test sbbu=276) Normal PLT MORPHOLOGY (BEAKER) (test wueo=208) Normal ANISOCYTOSIS (BEAKER) (test hbqf=174) 2+ moderate MATTHEWS-JOLLY BODIES (BEAKER) (test gxff=381) 1+ few POIKILOCYTES (BEAKER) (test cwqd=841) 2+ moderate POLYCHROMATOPHILLIC RBCS(BEAKER) (test zhre=965) 1+ few SICKLE CELLS (BEAKER) (test tyah=157) 2+ moderate TARGET CELLS (BEAKER) (test kugp=105) 1+ few CALCIUM, [id number] 07:44:00 Test Item Value Reference Range Comments CALCIUM IONIZED (BEAKER) (test rigd=524) 1.16 mmol/L 1.12-1.27 PH, BLOOD (BEAKER) (test ncnj=1215) 7.25 B-TYPE NATRIURETIC FACTOR (BNP)2017-11-09 07:43:00 Test Item Value Reference Range Comments B-TYPE NATRIURETIC PEPTIDE (BEAKER) (test 903 pg/mL 0-100 sbox=037) [id number] 07:27:00 Test Item Value Reference Range Comments PHOSPHORUS (BEAKER) (test crms=916) 4.4 mg/dL 2.3-4.7 [id number] 07:27:00 Test Item Value Reference Range Comments MAGNESIUM (BEAKER) (test gsyg=717) 1.7 mg/dL 1.6-2.6 COMPREHENSIVE METABOLIC [id number] 07:27:00 Test Item Value Reference Range Comments TOTAL PROTEIN (BEAKER) 7.8 gm/dL 6.0-8.3 (test fqof=132) ALBUMIN (BEAKER) (test 3.2 g/dL 3.5-5.0 kyle=0986) ALKALINE PHOSPHATASE 165 U/L 40-150 (BEAKER) (test nner=093) BILIRUBIN TOTAL (BEAKER) 1.3 mg/dL 0.2-1.2 (test tbjh=126) SODIUM (BEAKER) (test 143 meq/L 136-145 ginf=405) POTASSIUM (BEAKER) (test 4.2 meq/L 3.5-5.1 qeqp=126) CHLORIDE (BEAKER) (test 112 meq/L 98-107 bbpw=039) CO2 (BEAKER) (test 23 meq/L 22-29 lapu=591) BLOOD UREA NITROGEN 29 mg/dL 7-21 (BEAKER) (test vnaw=494) CREATININE (BEAKER) (test 1.54 mg/dL 0.57-1.25 aorf=863) GLUCOSE RANDOM (BEAKER) 108 mg/dL 70-105 (test npqt=930) CALCIUM (BEAKER) (test 9.1 mg/dL 8.4-10.2 eini=455) AST (SGOT) (BEAKER) (test 110 U/L 5-34 joqs=421) ALT (SGPT) (BEAKER) (test 64 U/L 6-55 gtcy=357) EGFR (BEAKER) (test 46 mL/min/1.73 sq m ESTIMATED GFR IS NOT axow=0573) ACCURATE CREATININE CLEARANCE IN PREDICTING GLOMERULAR FILTRATION RATE. ESTIMATED GFR IS NOT APPLICABLE FOR DIALYSIS PATIENTS. BASIC METABOLIC [id number] 07:27:00 Test Item Value Reference Range Comments SODIUM (BEAKER) (test 143 meq/L 136-145 sfxr=729) POTASSIUM (BEAKER) (test 4.2 meq/L 3.5-5.1 ewnp=052) CHLORIDE (BEAKER) (test 112 meq/L 98-107 wiek=578) CO2 (BEAKER) (test 23 meq/L 22-29 zqzf=462) BLOOD UREA NITROGEN 29 mg/dL 7-21 (BEAKER) (test qftr=763) CREATININE (BEAKER) (test 1.54 mg/dL 0.57-1.25 bnnz=859) GLUCOSE RANDOM (BEAKER) 108 mg/dL 70-105 (test nozs=588) CALCIUM (BEAKER) (test 9.1 mg/dL 8.4-10.2 kiwu=580) EGFR (BEAKER) (test 46 mL/min/1.73 sq m ESTIMATED GFR IS NOT ioyi=7053) ACCURATE CREATININE CLEARANCE IN PREDICTING GLOMERULAR FILTRATION RATE. ESTIMATED GFR IS NOT APPLICABLE FOR DIALYSIS PATIENTS. RAD, CHEST, 1 VIEW, NON [id number] 20:41:00Reason for exam:->edemaShould this be performed at [...] MDReport Verified Date/Time: 11/08/2017 20:41:24 Reading Location: [address] Reading Room Electronically signed by: CLIFF SALCIDO M.D. on 08:41 PMEOSINOPHIL SMEAR, [id number] 12:49:00 Test Item Value Reference Range Comments EOSINOPHIL SMEAR, URINE (BEAKER) (test No EOS seen No EOS seen zsvx=1489) CBC W/PLT COUNT & AUTO [id number] 10:40:00 Test Item Value Reference Range Comments WHITE BLOOD CELL COUNT (BEAKER) (test nmuy=283) 18.6 K/ L 3.5-10.5 RED BLOOD CELL COUNT (BEAKER) (test rijl=171) 2.21 M/ L 3.93-5.22 HEMOGLOBIN (BEAKER) (test xbpi=325) 6.8 GM/DL 11.2-15.7 HEMATOCRIT (BEAKER) (test txmm=283) 20.6 % 34.1-44.9 MEAN CORPUSCULAR VOLUME (BEAKER) (test horo=375) 93.2 fL 79.4-94.8 MEAN CORPUSCULAR HEMOGLOBIN (BEAKER) (test 30.8 pg 25.6-32.2 gulb=929) MEAN CORPUSCULAR HEMOGLOBIN CONC (BEAKER) (test 33.0 GM/DL 32.2-35.5 pmvq=051) RED CELL DISTRIBUTION WIDTH (BEAKER) (test 25.5 % 11.7-14.4 uydo=587) PLATELET COUNT (BEAKER) (test vxbx=759) 255 K/CU MM 150-450 MEAN PLATELET VOLUME (BEAKER) (test pczy=417) 10.6 fL 9.4-12.3 NUCLEATED RED BLOOD CELLS (BEAKER) (test 87 /100 WBC 0-0 qfhc=673) NEUTROPHILS RELATIVE PERCENT (BEAKER) (test 70 % nsqx=883) LYMPHOCYTES RELATIVE PERCENT (BEAKER) (test 14 % mbbg=183) MONOCYTES RELATIVE PERCENT (BEAKER) (test 14 % rcev=354) EOSINOPHILS RELATIVE PERCENT (BEAKER) (test 0 % rrge=340) BASOPHILS RELATIVE PERCENT (BEAKER) (test 0 % dowp=004) NEUTROPHILS ABSOLUTE COUNT (BEAKER) (test 12.98 K/ L 1.56-6.13 zwlf=533) LYMPHOCYTES ABSOLUTE COUNT (BEAKER) (test 2.67 K/ L 1.18-3.74 sqxt=221) MONOCYTES ABSOLUTE COUNT (BEAKER) (test 2.65 K/ L 0.24-0.36 aica=049) EOSINOPHILS ABSOLUTE COUNT (BEAKER) (test 0.07 K/ L 0.04-0.36 tzei=615) BASOPHILS ABSOLUTE COUNT (BEAKER) (test 0.05 K/ L 0.01-0.08 eqhf=176) IMMATURE GRANULOCYTES-RELATIVE PERCENT (BEAKER) 1 % 0-1 (test rplh=4131) (MANUAL DIFFERENTIAL)2017-11-08 10:40:00 Test Item Value Reference Range Comments TOTAL COUNTED (BEAKER) (test fpcn=5263) WBC MORPHOLOGY (BEAKER) (test iomx=978) Normal LARGE PLT(BEAKER) (test xyyq=3054) Present POLYCHROMATOPHILLIC RBCS(BEAKER) (test jyrw=744) 2+ moderate SICKLE CELLS (BEAKER) (test jdob=239) 3+ many TARGET CELLS (BEAKER) (test fnst=346) 1+ few CT, [id number] 08:29:00FINAL REPORT HISTORY : Abdominal pain, unspecified [...] small fluid collection. Signed : Dami Quick [facility] Verified Date/Time: 11/08/2017 08:29:54 Reading Location: [facility] Reading Room - [place] [id number] Electronically signed by: DAMI QUICK M.D. on11/08/2017 08:29 AMBASIC METABOLIC [id number] 08:14:00 Test Item Value Reference Range Comments SODIUM (BEAKER) (test 141 meq/L 136-145 aqft=228) POTASSIUM (BEAKER) (test 4.4 meq/L 3.5-5.1 jpmf=382) CHLORIDE (BEAKER) (test 111 meq/L 98-107 ekyn=766) CO2 (BEAKER) (test 17 meq/L 22-29 gnus=534) BLOOD UREA NITROGEN 37 mg/dL 7-21 (BEAKER) (test tsoo=411) CREATININE (BEAKER) (test 2.07 mg/dL 0.57-1.25 odbe=285) GLUCOSE RANDOM (BEAKER) 101 mg/dL 70-105 (test zvdh=711) CALCIUM (BEAKER) (test 8.9 mg/dL 8.4-10.2 wckj=984) EGFR (BEAKER) (test 32 mL/min/1.73 sq m ESTIMATED GFR IS NOT quqk=5401) ACCURATE CREATININE CLEARANCE IN PREDICTING GLOMERULAR FILTRATION RATE. ESTIMATED GFR IS NOT APPLICABLE FOR DIALYSIS PATIENTS. COMPREHENSIVE METABOLIC [id number] 08:14:00 Test Item Value Reference Range Comments TOTAL PROTEIN (BEAKER) 8.6 gm/dL 6.0-8.3 (test fefc=491) ALBUMIN (BEAKER) (test 3.4 g/dL 3.5-5.0 bgiu=3758) ALKALINE PHOSPHATASE 155 U/L 40-150 (BEAKER) (test vbes=904) BILIRUBIN TOTAL (BEAKER) 1.7 mg/dL 0.2-1.2 (test lynu=214) SODIUM (BEAKER) (test 141 meq/L 136-145 mind=682) POTASSIUM (BEAKER) (test 4.4 meq/L 3.5-5.1 joye=137) CHLORIDE (BEAKER) (test 111 meq/L 98-107 hict=416) CO2 (BEAKER) (test 17 meq/L 22-29 pwep=276) BLOOD UREA NITROGEN 37 mg/dL 7-21 (BEAKER) (test epfg=532) CREATININE (BEAKER) (test 2.07 mg/dL 0.57-1.25 jqcf=531) GLUCOSE RANDOM (BEAKER) 101 mg/dL 70-105 (test qvgz=059) CALCIUM (BEAKER) (test 8.9 mg/dL 8.4-10.2 uwma=669) AST (SGOT) (BEAKER) (test 144 U/L 5-34 wayt=238) ALT (SGPT) (BEAKER) (test 70 U/L 6-55 qwdh=045) EGFR (BEAKER) (test 32 mL/min/1.73 sq m ESTIMATED GFR IS NOT dxpm=0867) ACCURATE CREATININE CLEARANCE IN PREDICTING GLOMERULAR FILTRATION RATE. ESTIMATED GFR IS NOT APPLICABLE FOR DIALYSIS PATIENTS. PROTEIN, RANDOM [id number] 07:49:00 Test Item Value Reference Range Comments PROTEIN, URINE (BEAKER) (test gsii=2545) 24 mg/dL 0-14 CREATININE, RANDOM [id number] 07:47:00 Test Item Value Reference Range Comments CREATININE URINE (BEAKER) (test wvdv=901) 46.0 mg/dL Reference Range: No NormalsSODIUM, RANDOM [id number] 07:47:00 Test Item Value Reference Range Comments SODIUM URINE (BEAKER) (test jvuf=948) 65 meq/L Reference Range: No NormalsU/S, ABDOMINAL, [id number] 19:58:00Reason for exam:->GRAYSON, abdominal painShould this be [...] MDReport Verified Date/Time: 11/07/2017 19:58:17 Reading Location: [address] Consult Reading Room LACTIC ACID, VENOUS, WHOLE [id number] 16:11:00 Test Item Value Reference Range Comments LACTATE BLOOD VENOUS (2) 0.9 mmol/L 0.5-2.2 Specimen slightly hemolyzed (BEAKER) (test bpjw=1149) Effective 12/22/2015: Units/Reference Range ChangeNew: 0.5-2.2 mmol/L Previous: 5 -20 mg/dLCBC W/PLT COUNT & AUTO [id number] 10:20:00 Test Item Value Reference Range Comments WHITE BLOOD CELL COUNT (BEAKER) (test mmkp=723) 23.2 K/ L 3.5-10.5 RED BLOOD CELL COUNT (BEAKER) (test ptkn=086) 1.84 M/ L 3.93-5.22 HEMOGLOBIN (BEAKER) (test azmg=633) 5.8 GM/DL 11.2-15.7 HEMATOCRIT (BEAKER) (test ftus=512) 17.3 % 34.1-44.9 MEAN CORPUSCULAR VOLUME (BEAKER) (test lzww=182) 94.0 fL 79.4-94.8 MEAN CORPUSCULAR HEMOGLOBIN (BEAKER) (test 31.5 pg 25.6-32.2 tzte=929) MEAN CORPUSCULAR HEMOGLOBIN CONC (BEAKER) (test 33.5 GM/DL 32.2-35.5 ypjk=468) RED CELL DISTRIBUTION WIDTH (BEAKER) (test 24.1 % 11.7-14.4 ajcz=428) PLATELET COUNT (BEAKER) (test ufex=588) 249 K/CU MM 150-450 MEAN PLATELET VOLUME (BEAKER) (test tbrm=795) 10.8 fL 9.4-12.3 NUCLEATED RED BLOOD CELLS (BEAKER) (test 48 /100 WBC 0-0 mupl=930) IMMATURE GRANULOCYTES-RELATIVE PERCENT (BEAKER) 2 % 0-1 (test uueh=8882) (MANUAL DIFFERENTIAL)2017-11-07 10:20:00 Test Item Value Reference Range Comments NEUTROPHILS - REL (DIFF) (BEAKER) (test 68 % gqlt=7429) LYMPHOCYTES - REL (DIFF) (BEAKER) (test 27 % pqrx=8631) MONOCYTES - REL (DIFF) (BEAKER) (test gbcb=3197) 5 % EOSINOPHILS - REL (DIFF) (BEAKER) (test 0 % hhlu=4046) BASOPHILS - REL (DIFF) (BEAKER) (test gotk=2851) 0 % NEUTROPHILS - ABS (DIFF) (BEAKER) (test 15.78 K/ L 1.80-8.00 rcoq=1528) LYMPHOCYTES - ABS (DIFF) (BEAKER) (test 6.26 K/ L 1.48-4.50 kuxr=0909) MONOCYTES - ABS (DIFF) (BEAKER) (test fsnr=3836) 1.16 K/ L 0.00-1.30 EOSINOPHILS - ABS (DIFF) (BEAKER) (test 0.00 K/ L 0.00-0.50 lveg=1954) BASOPHILS - ABS (DIFF) (BEAKER) (test rffe=0173) 0.00 K/ L 0.00-0.20 TOTAL COUNTED (BEAKER) (test imjo=0347) 100 MANUAL NRBC PER 100 CELLS (BEAKER) (test 51 /100 WBC 0-0 rscg=1890) WBC MORPHOLOGY (BEAKER) (test gion=934) Normal PLT MORPHOLOGY (BEAKER) (test xkbl=962) Normal ANISOCYTOSIS (BEAKER) (test xgct=474) 3+ many POLYCHROMATOPHILLIC RBCS(BEAKER) (test ycze=551) 2+ moderate SICKLE CELLS (BEAKER) (test zuuu=953) 3+ many TARGET CELLS (BEAKER) (test jdjn=481) 1+ few BASIC METABOLIC [id number] 06:28:00 Test Item Value Reference Range Comments SODIUM (BEAKER) (test 132 meq/L 136-145 zafh=066) POTASSIUM (BEAKER) (test 4.4 meq/L 3.5-5.1 dnwq=897) CHLORIDE (BEAKER) (test 109 meq/L 98-107 qjze=975) CO2 (BEAKER) (test 20 meq/L 22-29 ayvp=527) BLOOD UREA NITROGEN 39 mg/dL 7-21 (BEAKER) (test wbjg=440) CREATININE (BEAKER) (test 2.20 mg/dL 0.57-1.25 ucjk=479) GLUCOSE RANDOM (BEAKER) 123 mg/dL 70-105 (test toaz=662) CALCIUM (BEAKER) (test 8.7 mg/dL 8.4-10.2 sizt=569) EGFR (BEAKER) (test 30 mL/min/1.73 sq m ESTIMATED GFR IS NOT dbrw=8902) ACCURATE CREATININE CLEARANCE IN PREDICTING GLOMERULAR FILTRATION RATE. ESTIMATED GFR IS NOT APPLICABLE FOR DIALYSIS PATIENTS. COMPREHENSIVE METABOLIC [id number] 18:37:00 Test Item Value Reference Range Comments TOTAL PROTEIN (BEAKER) 8.5 gm/dL 6.0-8.3 (test nuia=213) ALBUMIN (BEAKER) (test 3.4 g/dL 3.5-5.0 bcvh=9100) ALKALINE PHOSPHATASE 166 U/L 40-150 (BEAKER) (test blnk=469) BILIRUBIN TOTAL (BEAKER) 4.0 mg/dL 0.2-1.2 (test hqgb=163) SODIUM (BEAKER) (test 142 meq/L 136-145 ygsg=133) POTASSIUM (BEAKER) (test 4.7 meq/L 3.5-5.1 dbgk=479) CHLORIDE (BEAKER) (test 110 meq/L 98-107 ywdm=849) CO2 (BEAKER) (test 22 meq/L 22-29 nrow=593) BLOOD UREA NITROGEN 35 mg/dL 7-21 (BEAKER) (test dbmx=491) CREATININE (BEAKER) (test 1.97 mg/dL 0.57-1.25 bncj=363) GLUCOSE RANDOM (BEAKER) 119 mg/dL 70-105 (test waem=843) CALCIUM (BEAKER) (test 8.5 mg/dL 8.4-10.2 mniw=415) AST (SGOT) (BEAKER) (test 278 U/L 5-34 vwka=315) ALT (SGPT) (BEAKER) (test 92 U/L 6-55 thqs=767) EGFR (BEAKER) (test 34 mL/min/1.73 sq m ESTIMATED GFR IS NOT vjwc=0447) ACCURATE CREATININE CLEARANCE IN PREDICTING GLOMERULAR FILTRATION RATE. ESTIMATED GFR IS NOT APPLICABLE FOR DIALYSIS PATIENTS. Specimen slightly ictericCBC W/PLT COUNT & AUTO [id number] 14:59 :00 Test Item Value Reference Range Comments WHITE BLOOD CELL COUNT (BEAKER) (test hzix=061) 24.3 K/ L 3.5-10.5 RED BLOOD CELL COUNT (BEAKER) (test nidj=421) 1.73 M/ L 3.93-5.22 HEMOGLOBIN (BEAKER) (test nicy=863) 5.5 GM/DL 11.2-15.7 HEMATOCRIT (BEAKER) (test jjob=457) 16.7 % 34.1-44.9 MEAN CORPUSCULAR VOLUME (BEAKER) (test vxhv=599) 96.5 fL 79.4-94.8 MEAN CORPUSCULAR HEMOGLOBIN (BEAKER) (test 31.8 pg 25.6-32.2 ripr=631) MEAN CORPUSCULAR HEMOGLOBIN CONC (BEAKER) (test 32.9 GM/DL 32.2-35.5 qnym=474) RED CELL DISTRIBUTION WIDTH (BEAKER) (test 25.8 % 11.7-14.4 dsid=840) PLATELET COUNT (BEAKER) (test mzca=228) 259 K/CU MM 150-450 MEAN PLATELET VOLUME (BEAKER) (test utgc=401) 11.1 fL 9.4-12.3 NUCLEATED RED BLOOD CELLS (BEAKER) (test 29 /100 WBC 0-0 yqpf=434) IMMATURE GRANULOCYTES-RELATIVE PERCENT (BEAKER) 2 % 0-1 (test qxaw=6191) (MANUAL DIFFERENTIAL)2017-11-06 14:59:00 Test Item Value Reference Range Comments NEUTROPHILS - REL (DIFF) (BEAKER) (test 65 % gyzu=4956) LYMPHOCYTES - REL (DIFF) (BEAKER) (test 26 % vcfp=2406) MONOCYTES - REL (DIFF) (BEAKER) (test khbg=2284) 8 % MYELOCYTES-REL (DIFF) (BEAKER) (test jzsb=1833) 1 % 0-0 NEUTROPHILS - ABS (DIFF) (BEAKER) (test 15.80 K/ L 1.80-8.00 fzkf=8220) LYMPHOCYTES - ABS (DIFF) (BEAKER) (test 6.32 K/ L 1.48-4.50 tjfc=4096) MONOCYTES - ABS (DIFF) (BEAKER) (test fzzk=5610) 1.94 K/ L 0.00-1.30 MYELOCYTES-ABS (DIFF) (BEAKER) (test koxh=2337) 0.24 K/ L 0.00-0.00 TOTAL COUNTED (BEAKER) (test llqf=3702) 100 MANUAL NRBC PER 100 CELLS (BEAKER) (test 34 /100 WBC 0-0 thkr=8692) WBC MORPHOLOGY (BEAKER) (test lboa=381) Normal PLT MORPHOLOGY (BEAKER) (test osgv=595) Normal ANISOCYTOSIS (BEAKER) (test epnb=128) 3+ many MATTHEWS-JOLLY BODIES (BEAKER) (test yewk=020) Present POIKILOCYTES (BEAKER) (test dhre=397) 1+ few POLYCHROMATOPHILLIC RBCS(BEAKER) (test kysp=257) 2+ moderate SICKLE CELLS (BEAKER) (test kxhb=600) 3+ many BASIC METABOLIC [id number] 09:37:00 Test Item Value Reference Range Comments SODIUM (BEAKER) (test 139 meq/L 136-145 bojl=904) POTASSIUM (BEAKER) (test 4.5 meq/L 3.5-5.1 pcgu=860) CHLORIDE (BEAKER) (test 107 meq/L 98-107 viup=755) CO2 (BEAKER) (test 19 meq/L 22-29 qqrb=434) BLOOD UREA NITROGEN 27 mg/dL 7-21 (BEAKER) (test rsde=814) CREATININE (BEAKER) (test 1.37 mg/dL 0.57-1.25 adwx=336) GLUCOSE RANDOM (BEAKER) 124 mg/dL 70-105 (test ebhs=912) CALCIUM (BEAKER) (test 8.2 mg/dL 8.4-10.2 icfe=359) EGFR (BEAKER) (test 52 mL/min/1.73 sq m ESTIMATED GFR IS NOT lxze=4157) ACCURATE CREATININE CLEARANCE IN PREDICTING GLOMERULAR FILTRATION RATE. ESTIMATED GFR IS NOT APPLICABLE FOR DIALYSIS PATIENTS. Specimen slightly ictericURINALYSIS W/ [id number] 06:22:00 Test Item Value Reference Range Comments COLOR (BEAKER) (test vxou=384) Brown CLARITY (BEAKER) (test uymn=464) Cloudy SPECIFIC GRAVITY UA (BEAKER) (test 1.015 1.001-1.035 pcuz=682) PH UA (BEAKER) (test jxmf=209) 5.5 5.0-8.0 PROTEIN UA (BEAKER) (test exjb=079) 100 mg/dL Negative GLUCOSE UA (BEAKER) (test qnml=293) Negative Negative KETONES UA (BEAKER) (test cspn=113) Negative Negative BILIRUBIN UA (BEAKER) (test huqn=896) Positive Negative BLOOD UA (BEAKER) (test ryit=850) Large Negative NITRITE UA (BEAKER) (test zbfz=847) Negative Negative LEUKOCYTE ESTERASE UA (BEAKER) (test Trace Negative crpy=260) UROBILINOGEN UA (BEAKER) (test tjxn=893) 4.0 mg/dL 0.2-1.0 RBC UA (BEAKER) (test xspr=415) 0 /HPF WBC UA (BEAKER) (test rawq=038) 27 /HPF MUCUS (BEAKER) (test wvef=2611) Few SQUAMOUS EPITHELIAL (BEAKER) (test 11 /HPF yfku=345) SOURCE(BEAKER) (test hslf=9267) Urine, Clean Catch BASIC METABOLIC [id number] 10:56:00 Test Item Value Reference Range Comments SODIUM (BEAKER) (test 139 meq/L 136-145 eyct=385) POTASSIUM (BEAKER) (test 4.2 meq/L 3.5-5.1 dqlb=069) CHLORIDE (BEAKER) (test 104 meq/L 98-107 zcmv=977) CO2 (BEAKER) (test 23 meq/L 22-29 unek=121) BLOOD UREA NITROGEN 9 mg/dL 7-21 (BEAKER) (test zyri=313) CREATININE (BEAKER) (test 0.66 mg/dL 0.57-1.25 lfoa=560) GLUCOSE RANDOM (BEAKER) 109 mg/dL 70-105 (test lrnd=520) CALCIUM (BEAKER) (test 8.6 mg/dL 8.4-10.2 emoc=265) EGFR (BEAKER) (test 121 mL/min/1.73 sq m ESTIMATED GFR IS NOT gtdd=5683) ACCURATE CREATININE CLEARANCE IN PREDICTING GLOMERULAR FILTRATION RATE. ESTIMATED GFR IS NOT APPLICABLE FOR DIALYSIS PATIENTS. Specimen slightly ictericCBC W/PLT COUNT & AUTO [id number] 09:17 :00 Test Item Value Reference Range Comments WHITE BLOOD CELL COUNT (BEAKER) (test vbgo=035) 18.2 K/ L 3.5-10.5 RED BLOOD CELL COUNT (BEAKER) (test ioxr=785) 2.05 M/ L 3.93-5.22 HEMOGLOBIN (BEAKER) (test qxbu=849) 6.4 GM/DL 11.2-15.7 HEMATOCRIT (BEAKER) (test zizq=434) 19.9 % 34.1-44.9 MEAN CORPUSCULAR VOLUME (BEAKER) (test pseo=982) 97.1 fL 79.4-94.8 MEAN CORPUSCULAR HEMOGLOBIN (BEAKER) (test 31.2 pg 25.6-32.2 fyux=048) MEAN CORPUSCULAR HEMOGLOBIN CONC (BEAKER) (test 32.2 GM/DL 32.2-35.5 olvx=293) RED CELL DISTRIBUTION WIDTH (BEAKER) (test 25.4 % 11.7-14.4 cqxy=844) PLATELET COUNT (BEAKER) (test thiv=390) 227 K/CU MM 150-450 MEAN PLATELET VOLUME (BEAKER) (test bxtg=083) 10.4 fL 9.4-12.3 NUCLEATED RED BLOOD CELLS (BEAKER) (test 18 /100 WBC 0-0 fwqr=968) NEUTROPHILS RELATIVE PERCENT (BEAKER) (test 57 % ugns=485) LYMPHOCYTES RELATIVE PERCENT (BEAKER) (test 24 % ydsq=075) MONOCYTES RELATIVE PERCENT (BEAKER) (test 15 % ldzm=171) EOSINOPHILS RELATIVE PERCENT (BEAKER) (test 3 % mmov=287) BASOPHILS RELATIVE PERCENT (BEAKER) (test 0 % tfhw=812) NEUTROPHILS ABSOLUTE COUNT (BEAKER) (test 10.46 K/ L 1.56-6.13 ypvs=068) LYMPHOCYTES ABSOLUTE COUNT (BEAKER) (test 4.31 K/ L 1.18-3.74 mxtc=154) MONOCYTES ABSOLUTE COUNT (BEAKER) (test 2.72 K/ L 0.24-0.36 qfaj=605) EOSINOPHILS ABSOLUTE COUNT (BEAKER) (test 0.45 K/ L 0.04-0.36 pawc=516) BASOPHILS ABSOLUTE COUNT (BEAKER) (test 0.07 K/ L 0.01-0.08 mkrf=324) IMMATURE GRANULOCYTES-RELATIVE PERCENT (BEAKER) 1 % 0-1 (test efbu=9009) (MANUAL DIFFERENTIAL)2017-11-05 09:17:00 Test Item Value Reference Range Comments TOTAL COUNTED (BEAKER) (test vffl=5782) WBC MORPHOLOGY (BEAKER) (test gmub=493) Normal PLT MORPHOLOGY (BEAKER) (test jtln=689) Normal ANISOCYTOSIS (BEAKER) (test jwki=560) 2+ moderate POLYCHROMATOPHILLIC RBCS(BEAKER) (test vqvz=578) 2+ moderate SICKLE CELLS (BEAKER) (test qvho=077) 2+ moderate TARGET CELLS (BEAKER) (test ythe=671) 2+ moderate CREATINE KINASE (CK), TOTAL AND [id number] 22:01:00 Test Item Value Reference Range Comments CREATINE KINASE TOTAL (BEAKER) (test 10 U/L 29-200 kxzt=852) CREATINE KINASE-MB (BEAKER) (test 0.1 ng/mL 0.0-6.6 atnt=576) CREATINE KINASE-MB INDEX (BEAKER) (test 1.0 % Unable to Calculate lykw=388) CK-MB Reference Range:<6.7 Normal6.7-10.0 Borderline>10.0 AbnormalTROPONIN [id number] 21:16:00 Test Item Value Reference Range Comments TROPONIN I (BEAKER) (test lvlg=658) < ng/mL 0.00-0.03 Troponin I (TnI) levels [...] and persistent tachyarrhythmia.CBC W/PLT COUNT & AUTO [id number] 06:49:00 Test Item Value Reference Range Comments WHITE BLOOD CELL COUNT (BEAKER) (test ovmj=856) 13.3 K/ L 3.5-10.5 RED BLOOD CELL COUNT (BEAKER) (test yfoj=018) 2.18 M/ L 3.93-5.22 HEMOGLOBIN (BEAKER) (test xzwu=396) 6.8 GM/DL 11.2-15.7 HEMATOCRIT (BEAKER) (test froj=650) 21.5 % 34.1-44.9 MEAN CORPUSCULAR VOLUME (BEAKER) (test itmf=599) 98.6 fL 79.4-94.8 MEAN CORPUSCULAR HEMOGLOBIN (BEAKER) (test 31.2 pg 25.6-32.2 ruog=551) MEAN CORPUSCULAR HEMOGLOBIN CONC (BEAKER) (test 31.6 GM/DL 32.2-35.5 poju=820) RED CELL DISTRIBUTION WIDTH (BEAKER) (test 21.1 % 11.7-14.4 ugga=906) PLATELET COUNT (BEAKER) (test nouw=328) 192 K/CU MM 150-450 MEAN PLATELET VOLUME (BEAKER) (test bncf=708) 11.4 fL 9.4-12.3 NUCLEATED RED BLOOD CELLS (BEAKER) (test 1 /100 WBC 0-0 cqyo=278) NEUTROPHILS RELATIVE PERCENT (BEAKER) (test 51 % snkk=389) LYMPHOCYTES RELATIVE PERCENT (BEAKER) (test 30 % bnaa=235) MONOCYTES RELATIVE PERCENT (BEAKER) (test 16 % aoha=296) EOSINOPHILS RELATIVE PERCENT (BEAKER) (test 2 % psga=027) BASOPHILS RELATIVE PERCENT (BEAKER) (test 0 % aoqq=521) NEUTROPHILS ABSOLUTE COUNT (BEAKER) (test 6.84 K/ L 1.56-6.13 pomq=140) LYMPHOCYTES ABSOLUTE COUNT (BEAKER) (test 4.06 K/ L 1.18-3.74 czgc=702) MONOCYTES ABSOLUTE COUNT (BEAKER) (test 2.12 K/ L 0.24-0.36 dgic=448) EOSINOPHILS ABSOLUTE COUNT (BEAKER) (test 0.26 K/ L 0.04-0.36 cefc=137) BASOPHILS ABSOLUTE COUNT (BEAKER) (test 0.02 K/ L 0.01-0.08 kjiw=943) IMMATURE GRANULOCYTES-RELATIVE PERCENT (BEAKER) 0 % 0-1 (test bpta=3484) BASIC METABOLIC [id number] 07:06:00 Test Item Value Reference Range Comments SODIUM (BEAKER) (test 138 meq/L 136-145 lrsv=831) POTASSIUM (BEAKER) (test 4.2 meq/L 3.5-5.1 hejw=300) CHLORIDE (BEAKER) (test 103 meq/L 98-107 slqd=638) CO2 (BEAKER) (test 28 meq/L 22-29 xezv=221) BLOOD UREA NITROGEN 11 mg/dL 7-21 (BEAKER) (test ggte=916) CREATININE (BEAKER) (test 0.55 mg/dL 0.57-1.25 uyhl=691) GLUCOSE RANDOM (BEAKER) 95 mg/dL 70-105 (test ngls=040) CALCIUM (BEAKER) (test 9.5 mg/dL 8.4-10.2 dbgx=939) EGFR (BEAKER) (test 150 mL/min/1.73 sq m ESTIMATED GFR IS NOT clko=2913) ACCURATE CREATININE CLEARANCE IN PREDICTING GLOMERULAR FILTRATION RATE. ESTIMATED GFR IS NOT APPLICABLE FOR DIALYSIS PATIENTS. CBC W/PLT COUNT & AUTO [id number] 06:48:00 Test Item Value Reference Range Comments WHITE BLOOD CELL COUNT (BEAKER) (test zmse=588) 12.8 K/ L 3.5-10.5 RED BLOOD CELL COUNT (BEAKER) (test dfjn=906) 2.22 M/ L 3.93-5.22 HEMOGLOBIN (BEAKER) (test bydq=693) 7.2 GM/DL 11.2-15.7 HEMATOCRIT (BEAKER) (test lvyx=333) 21.9 % 34.1-44.9 MEAN CORPUSCULAR VOLUME (BEAKER) (test tzve=324) 98.6 fL 79.4-94.8 MEAN CORPUSCULAR HEMOGLOBIN (BEAKER) (test 32.4 pg 25.6-32.2 zpji=182) MEAN CORPUSCULAR HEMOGLOBIN CONC (BEAKER) (test 32.9 GM/DL 32.2-35.5 guwx=189) RED CELL DISTRIBUTION WIDTH (BEAKER) (test 21.2 % 11.7-14.4 nryg=413) PLATELET COUNT (BEAKER) (test xuos=971) 176 K/CU MM 150-450 MEAN PLATELET VOLUME (BEAKER) (test uqly=983) 11.2 fL 9.4-12.3 NUCLEATED RED BLOOD CELLS (BEAKER) (test 5 /100 WBC 0-0 bnrc=206) NEUTROPHILS RELATIVE PERCENT (BEAKER) (test 49 % rfrx=694) LYMPHOCYTES RELATIVE PERCENT (BEAKER) (test 31 % gyjw=850) MONOCYTES RELATIVE PERCENT (BEAKER) (test 19 % xqgb=744) EOSINOPHILS RELATIVE PERCENT (BEAKER) (test 2 % pkox=542) BASOPHILS RELATIVE PERCENT (BEAKER) (test 0 % oufx=763) NEUTROPHILS ABSOLUTE COUNT (BEAKER) (test 6.23 K/ L 1.56-6.13 hpaa=199) LYMPHOCYTES ABSOLUTE COUNT (BEAKER) (test 3.90 K/ L 1.18-3.74 xvhj=440) MONOCYTES ABSOLUTE COUNT (BEAKER) (test 2.37 K/ L 0.24-0.36 lvcm=229) EOSINOPHILS ABSOLUTE COUNT (BEAKER) (test 0.24 K/ L 0.04-0.36 sgzh=648) BASOPHILS ABSOLUTE COUNT (BEAKER) (test 0.01 K/ L 0.01-0.08 gxde=867) IMMATURE GRANULOCYTES-RELATIVE PERCENT (BEAKER) 0 % 0-1 (test dyph=4127) (MANUAL DIFFERENTIAL)2017-06-03 06:48:00 Test Item Value Reference Range Comments TOTAL COUNTED (BEAKER) (test zciq=7163) WBC MORPHOLOGY (BEAKER) (test quek=359) Normal PLT MORPHOLOGY (BEAKER) (test tvvu=517) Normal ANISOCYTOSIS (BEAKER) (test mets=774) 3+ many MATTHEWS-JOLLY BODIES (BEAKER) (test weca=460) Present MACROCYTES (BEAKER) (test abab=420) 3+ many SICKLE CELLS (BEAKER) (test yvci=018) 1+ few TARGET CELLS (BEAKER) (test ftob=332) 1+ few BASIC METABOLIC [id number] 07:33:00 Test Item Value Reference Range Comments SODIUM (BEAKER) (test 138 meq/L 136-145 gyut=632) POTASSIUM (BEAKER) (test 4.5 meq/L 3.5-5.1 mngd=603) CHLORIDE (BEAKER) (test 102 meq/L 98-107 ouyw=143) CO2 (BEAKER) (test 27 meq/L 22-29 skls=955) BLOOD UREA NITROGEN 11 mg/dL 7-21 (BEAKER) (test mmcr=341) CREATININE (BEAKER) (test 0.55 mg/dL 0.57-1.25 ammb=499) GLUCOSE RANDOM (BEAKER) 85 mg/dL 70-105 (test wdci=956) CALCIUM (BEAKER) (test 9.5 mg/dL 8.4-10.2 oyug=040) EGFR (BEAKER) (test 150 mL/min/1.73 sq m ESTIMATED GFR IS NOT czaz=2606) ACCURATE CREATININE CLEARANCE IN PREDICTING GLOMERULAR FILTRATION RATE. ESTIMATED GFR IS NOT APPLICABLE FOR DIALYSIS PATIENTS. CBC W/PLT COUNT & AUTO [id number] 07:13:00 Test Item Value Reference Range Comments WHITE BLOOD CELL COUNT (BEAKER) (test pjiy=749) 14.2 K/ L 3.5-10.5 RED BLOOD CELL COUNT (BEAKER) (test vsbh=027) 2.39 M/ L 3.93-5.22 HEMOGLOBIN (BEAKER) (test weag=610) 7.6 GM/DL 11.2-15.7 HEMATOCRIT (BEAKER) (test uywx=057) 23.5 % 34.1-44.9 MEAN CORPUSCULAR VOLUME (BEAKER) (test zifx=355) 98.3 fL 79.4-94.8 MEAN CORPUSCULAR HEMOGLOBIN (BEAKER) (test 31.8 pg 25.6-32.2 rbzf=062) MEAN CORPUSCULAR HEMOGLOBIN CONC (BEAKER) (test 32.3 GM/DL 32.2-35.5 qrnf=198) RED CELL DISTRIBUTION WIDTH (BEAKER) (test 21.1 % 11.7-14.4 bbzj=216) PLATELET COUNT (BEAKER) (test pfxd=883) 173 K/CU MM 150-450 MEAN PLATELET VOLUME (BEAKER) (test uksr=605) 11.7 fL 9.4-12.3 NUCLEATED RED BLOOD CELLS (BEAKER) (test 11 /100 WBC 0-0 lxmr=176) NEUTROPHILS RELATIVE PERCENT (BEAKER) (test 53 % mopt=899) LYMPHOCYTES RELATIVE PERCENT (BEAKER) (test 27 % ieye=233) MONOCYTES RELATIVE PERCENT (BEAKER) (test 18 % mwdp=709) EOSINOPHILS RELATIVE PERCENT (BEAKER) (test 1 % pqpm=174) BASOPHILS RELATIVE PERCENT (BEAKER) (test 0 % lhpv=943) NEUTROPHILS ABSOLUTE COUNT (BEAKER) (test 7.56 K/ L 1.56-6.13 oggb=923) LYMPHOCYTES ABSOLUTE COUNT (BEAKER) (test 3.89 K/ L 1.18-3.74 aspk=271) MONOCYTES ABSOLUTE COUNT (BEAKER) (test 2.52 K/ L 0.24-0.36 dihd=951) EOSINOPHILS ABSOLUTE COUNT (BEAKER) (test 0.20 K/ L 0.04-0.36 luec=455) BASOPHILS ABSOLUTE COUNT (BEAKER) (test 0.02 K/ L 0.01-0.08 iomd=054) IMMATURE GRANULOCYTES-RELATIVE PERCENT (BEAKER) 0 % 0-1 (test zkkw=6361) CBC W/PLT COUNT & AUTO [id number] 16:45:00 Test Item Value Reference Range Comments WHITE BLOOD CELL COUNT (BEAKER) (test iokz=227) 15.1 K/ L 3.5-10.5 RED BLOOD CELL COUNT (BEAKER) (test hfcq=877) 2.36 M/ L 3.93-5.22 HEMOGLOBIN (BEAKER) (test xokj=795) 7.5 GM/DL 11.2-15.7 HEMATOCRIT (BEAKER) (test ajxg=134) 23.0 % 34.1-44.9 MEAN CORPUSCULAR VOLUME (BEAKER) (test bzjd=789) 97.5 fL 79.4-94.8 MEAN CORPUSCULAR HEMOGLOBIN (BEAKER) (test 31.8 pg 25.6-32.2 lttd=071) MEAN CORPUSCULAR HEMOGLOBIN CONC (BEAKER) (test 32.6 GM/DL 32.2-35.5 lquk=416) RED CELL DISTRIBUTION WIDTH (BEAKER) (test 20.7 % 11.7-14.4 txzf=949) PLATELET COUNT (BEAKER) (test vsnr=767) 179 K/CU MM 150-450 MEAN PLATELET VOLUME (BEAKER) (test xses=874) 11.9 fL 9.4-12.3 NUCLEATED RED BLOOD CELLS (BEAKER) (test 12 /100 WBC 0-0 disl=608) NEUTROPHILS RELATIVE PERCENT (BEAKER) (test 53 % xent=680) LYMPHOCYTES RELATIVE PERCENT (BEAKER) (test 27 % fzjd=681) MONOCYTES RELATIVE PERCENT (BEAKER) (test 18 % vsrt=501) EOSINOPHILS RELATIVE PERCENT (BEAKER) (test 2 % ffqa=759) BASOPHILS RELATIVE PERCENT (BEAKER) (test 0 % rxsv=270) NEUTROPHILS ABSOLUTE COUNT (BEAKER) (test 8.03 K/ L 1.56-6.13 cwjq=505) LYMPHOCYTES ABSOLUTE COUNT (BEAKER) (test 3.99 K/ L 1.18-3.74 arhk=807) MONOCYTES ABSOLUTE COUNT (BEAKER) (test 2.65 K/ L 0.24-0.36 otdf=961) EOSINOPHILS ABSOLUTE COUNT (BEAKER) (test 0.31 K/ L 0.04-0.36 scje=491) BASOPHILS ABSOLUTE COUNT (BEAKER) (test 0.02 K/ L 0.01-0.08 ymub=362) IMMATURE GRANULOCYTES-RELATIVE PERCENT (BEAKER) 0 % 0-1 (test zzce=2283) BASIC METABOLIC [id number] 06:17:00 Test Item Value Reference Range Comments SODIUM (BEAKER) (test 138 meq/L 136-145 bswf=156) POTASSIUM (BEAKER) (test 4.1 meq/L 3.5-5.1 ggrx=596) CHLORIDE (BEAKER) (test 100 meq/L 98-107 bvun=144) CO2 (BEAKER) (test 30 meq/L 22-29 gwqa=197) BLOOD UREA NITROGEN 11 mg/dL 7-21 (BEAKER) (test blxh=345) CREATININE (BEAKER) (test 0.58 mg/dL 0.57-1.25 utqz=988) GLUCOSE RANDOM (BEAKER) 90 mg/dL 70-105 (test rlgp=442) CALCIUM (BEAKER) (test 9.4 mg/dL 8.4-10.2 onmz=401) EGFR (BEAKER) (test 141 mL/min/1.73 sq m ESTIMATED GFR IS NOT rnlj=5973) ACCURATE CREATININE CLEARANCE IN PREDICTING GLOMERULAR FILTRATION RATE. ESTIMATED GFR IS NOT APPLICABLE FOR DIALYSIS PATIENTS. CBC W/PLT COUNT & AUTO [id number] 13:41:00 Test Item Value Reference Range Comments WHITE BLOOD CELL COUNT (BEAKER) (test dhxn=801) 13.9 K/ L 3.5-10.5 RED BLOOD CELL COUNT (BEAKER) (test snzg=961) 2.38 M/ L 3.93-5.22 HEMOGLOBIN (BEAKER) (test xbup=118) 7.5 GM/DL 11.2-15.7 HEMATOCRIT (BEAKER) (test todo=615) 23.2 % 34.1-44.9 MEAN CORPUSCULAR VOLUME (BEAKER) (test giqk=942) 97.5 fL 79.4-94.8 MEAN CORPUSCULAR HEMOGLOBIN (BEAKER) (test 31.5 pg 25.6-32.2 axnt=541) MEAN CORPUSCULAR HEMOGLOBIN CONC (BEAKER) (test 32.3 GM/DL 32.2-35.5 aory=935) RED CELL DISTRIBUTION WIDTH (BEAKER) (test 20.2 % 11.7-14.4 aofh=378) PLATELET COUNT (BEAKER) (test jqwl=770) 171 K/CU MM 150-450 MEAN PLATELET VOLUME (BEAKER) (test wbmc=656) 12.0 fL 9.4-12.3 NUCLEATED RED BLOOD CELLS (BEAKER) (test 8 /100 WBC 0-0 ewtx=935) NEUTROPHILS RELATIVE PERCENT (BEAKER) (test 57 % xflh=803) LYMPHOCYTES RELATIVE PERCENT (BEAKER) (test 23 % lyon=522) MONOCYTES RELATIVE PERCENT (BEAKER) (test 18 % znxq=163) EOSINOPHILS RELATIVE PERCENT (BEAKER) (test 2 % hteu=296) BASOPHILS RELATIVE PERCENT (BEAKER) (test 0 % pwzv=702) NEUTROPHILS ABSOLUTE COUNT (BEAKER) (test 7.89 K/ L 1.56-6.13 fgwd=567) LYMPHOCYTES ABSOLUTE COUNT (BEAKER) (test 3.13 K/ L 1.18-3.74 wvzo=834) MONOCYTES ABSOLUTE COUNT (BEAKER) (test 2.52 K/ L 0.24-0.36 mfsz=977) EOSINOPHILS ABSOLUTE COUNT (BEAKER) (test 0.25 K/ L 0.04-0.36 ramj=317) BASOPHILS ABSOLUTE COUNT (BEAKER) (test 0.02 K/ L 0.01-0.08 sigh=569) IMMATURE GRANULOCYTES-RELATIVE PERCENT (BEAKER) 1 % 0-1 (test pvoa=4813) (MANUAL DIFFERENTIAL)2017-05-31 13:41:00 Test Item Value Reference Range Comments TOTAL COUNTED (BEAKER) (test wjez=2658) WBC MORPHOLOGY (BEAKER) (test osbz=879) Normal PLT MORPHOLOGY (BEAKER) (test dwrd=934) Normal POLYCHROMATOPHILLIC RBCS(BEAKER) (test bcjx=378) 2+ moderate SICKLE CELLS (BEAKER) (test cezr=458) 1+ few TARGET CELLS (BEAKER) (test fcff=758) 2+ moderate URINE [id number] 12:19:00 Test Item Value Reference Range Comments CULTURE (BEAKER) (test 20-29,000 col/mL skin valentino nscy=4848) BASIC METABOLIC [id number] 07:23:00 Test Item Value Reference Range Comments SODIUM (BEAKER) (test 136 meq/L 136-145 rmzq=638) POTASSIUM (BEAKER) (test 3.9 meq/L 3.5-5.1 gkmg=542) CHLORIDE (BEAKER) (test 97 meq/L 98-107 qrkc=993) CO2 (BEAKER) (test 30 meq/L 22-29 minu=497) BLOOD UREA NITROGEN 9 mg/dL 7-21 (BEAKER) (test mmoj=427) CREATININE (BEAKER) (test 0.56 mg/dL 0.57-1.25 tsmn=774) GLUCOSE RANDOM (BEAKER) 100 mg/dL 70-105 (test egxp=741) CALCIUM (BEAKER) (test 9.5 mg/dL 8.4-10.2 nvju=633) EGFR (BEAKER) (test 147 mL/min/1.73 sq m ESTIMATED GFR IS NOT lhjv=8416) ACCURATE CREATININE CLEARANCE IN PREDICTING GLOMERULAR FILTRATION RATE. ESTIMATED GFR IS NOT APPLICABLE FOR DIALYSIS PATIENTS. U/S, ABDOMINAL, [id number] 23:52:00Reason for exam:->painShould this be performed at [...] Status post splenectomy and cholecystectomy. Signed: Jamey Gayeport Verified Date/Time: 05/30/2017 23:52:25 Reading Location: [facility] [id number] Consult Reading Room 11:52 PMCBC W/PLT COUNT & AUTO [id number] 17:30:00 Test Item Value Reference Range Comments WHITE BLOOD CELL COUNT (BEAKER) (test higu=240) 14.0 K/ L 3.5-10.5 RED BLOOD CELL COUNT (BEAKER) (test dxfu=091) 2.41 M/ L 3.93-5.22 HEMOGLOBIN (BEAKER) (test ecfj=854) 7.7 GM/DL 11.2-15.7 HEMATOCRIT (BEAKER) (test bjty=572) 23.3 % 34.1-44.9 MEAN CORPUSCULAR VOLUME (BEAKER) (test axim=092) 96.7 fL 79.4-94.8 MEAN CORPUSCULAR HEMOGLOBIN (BEAKER) (test 32.0 pg 25.6-32.2 core=798) MEAN CORPUSCULAR HEMOGLOBIN CONC (BEAKER) (test 33.0 GM/DL 32.2-35.5 fjlg=310) RED CELL DISTRIBUTION WIDTH (BEAKER) (test 20.0 % 11.7-14.4 izti=235) PLATELET COUNT (BEAKER) (test rcuo=908) 163 K/CU MM 150-450 MEAN PLATELET VOLUME (BEAKER) (test hvfi=984) 11.7 fL 9.4-12.3 NUCLEATED RED BLOOD CELLS (BEAKER) (test 4 /100 WBC 0-0 wfyl=681) NEUTROPHILS RELATIVE PERCENT (BEAKER) (test 47 % sbbv=712) LYMPHOCYTES RELATIVE PERCENT (BEAKER) (test 32 % yfre=485) MONOCYTES RELATIVE PERCENT (BEAKER) (test 18 % fcax=251) EOSINOPHILS RELATIVE PERCENT (BEAKER) (test 3 % rxes=742) BASOPHILS RELATIVE PERCENT (BEAKER) (test 0 % bcaw=971) NEUTROPHILS ABSOLUTE COUNT (BEAKER) (test 6.58 K/ L 1.56-6.13 cmur=966) LYMPHOCYTES ABSOLUTE COUNT (BEAKER) (test 4.40 K/ L 1.18-3.74 zxzi=232) MONOCYTES ABSOLUTE COUNT (BEAKER) (test 2.49 K/ L 0.24-0.36 mrtp=963) EOSINOPHILS ABSOLUTE COUNT (BEAKER) (test 0.44 K/ L 0.04-0.36 pdav=064) BASOPHILS ABSOLUTE COUNT (BEAKER) (test 0.02 K/ L 0.01-0.08 ztkt=316) IMMATURE GRANULOCYTES-RELATIVE PERCENT (BEAKER) 0 % 0-1 (test atuc=3537) BASIC METABOLIC [id number] 06:33:00 Test Item Value Reference Range Comments SODIUM (BEAKER) (test 139 meq/L 136-145 fgjd=985) POTASSIUM (BEAKER) (test 4.0 meq/L 3.5-5.1 uakp=619) CHLORIDE (BEAKER) (test 102 meq/L 98-107 cerc=570) CO2 (BEAKER) (test 28 meq/L 22-29 zqrs=879) BLOOD UREA NITROGEN 7 mg/dL 7-21 (BEAKER) (test bpza=938) CREATININE (BEAKER) (test 0.54 mg/dL 0.57-1.25 avbz=714) GLUCOSE RANDOM (BEAKER) 95 mg/dL 70-105 (test fmjo=471) CALCIUM (BEAKER) (test 9.6 mg/dL 8.4-10.2 odlk=363) EGFR (BEAKER) (test 153 mL/min/1.73 sq m ESTIMATED GFR IS NOT nixb=1576) ACCURATE CREATININE CLEARANCE IN PREDICTING GLOMERULAR FILTRATION RATE. ESTIMATED GFR IS NOT APPLICABLE FOR DIALYSIS PATIENTS. CBC W/PLT COUNT & AUTO [id number] 13:41:00 Test Item Value Reference Range Comments WHITE BLOOD CELL COUNT (BEAKER) (test mhje=960) 14.6 K/ L 3.5-10.5 RED BLOOD CELL COUNT (BEAKER) (test jlzs=120) 1.85 M/ L 3.93-5.22 HEMOGLOBIN (BEAKER) (test wtiq=926) 5.9 GM/DL 11.2-15.7 HEMATOCRIT (BEAKER) (test dtja=262) 18.5 % 34.1-44.9 MEAN CORPUSCULAR VOLUME (BEAKER) (test jups=022) 100.0 fL 79.4-94.8 MEAN CORPUSCULAR HEMOGLOBIN (BEAKER) (test 31.9 pg 25.6-32.2 ejki=521) MEAN CORPUSCULAR HEMOGLOBIN CONC (BEAKER) (test 31.9 GM/DL 32.2-35.5 whmd=136) RED CELL DISTRIBUTION WIDTH (BEAKER) (test 21.0 % 11.7-14.4 aeau=548) PLATELET COUNT (BEAKER) (test zhqd=832) 169 K/CU MM 150-450 MEAN PLATELET VOLUME (BEAKER) (test dzml=465) 12.1 fL 9.4-12.3 NUCLEATED RED BLOOD CELLS (BEAKER) (test 3 /100 WBC 0-0 wmlh=316) NEUTROPHILS RELATIVE PERCENT (BEAKER) (test 52 % uuvb=729) LYMPHOCYTES RELATIVE PERCENT (BEAKER) (test 28 % borb=262) MONOCYTES RELATIVE PERCENT (BEAKER) (test 16 % eksx=210) EOSINOPHILS RELATIVE PERCENT (BEAKER) (test 4 % aqrr=588) BASOPHILS RELATIVE PERCENT (BEAKER) (test 0 % seou=009) NEUTROPHILS ABSOLUTE COUNT (BEAKER) (test 7.50 K/ L 1.56-6.13 icwj=989) LYMPHOCYTES ABSOLUTE COUNT (BEAKER) (test 4.08 K/ L 1.18-3.74 kkyu=732) MONOCYTES ABSOLUTE COUNT (BEAKER) (test 2.34 K/ L 0.24-0.36 pjdu=612) EOSINOPHILS ABSOLUTE COUNT (BEAKER) (test 0.56 K/ L 0.04-0.36 bfgf=719) BASOPHILS ABSOLUTE COUNT (BEAKER) (test 0.02 K/ L 0.01-0.08 rknp=097) IMMATURE GRANULOCYTES-RELATIVE PERCENT (BEAKER) 0 % 0-1 (test qrrm=8607) (MANUAL DIFFERENTIAL)2017-05-29 13:41:00 Test Item Value Reference Range Comments TOTAL COUNTED (BEAKER) (test kiyp=2332) WBC MORPHOLOGY (BEAKER) (test coeg=453) Normal PLT MORPHOLOGY (BEAKER) (test nlit=005) Normal POLYCHROMATOPHILLIC RBCS(BEAKER) (test msth=011) 2+ moderate SICKLE CELLS (BEAKER) (test llaf=401) 1+ few TARGET CELLS (BEAKER) (test qvbv=254) 2+ moderate BASIC METABOLIC [id number] 07:38:00 Test Item Value Reference Range Comments SODIUM (BEAKER) (test 140 meq/L 136-145 ornh=981) POTASSIUM (BEAKER) (test 3.9 meq/L 3.5-5.1 sisp=727) CHLORIDE (BEAKER) (test 104 meq/L 98-107 lxtb=819) CO2 (BEAKER) (test 28 meq/L 22-29 dbxx=365) BLOOD UREA NITROGEN 8 mg/dL 7-21 (BEAKER) (test gaty=654) CREATININE (BEAKER) (test 0.56 mg/dL 0.57-1.25 gyvb=033) GLUCOSE RANDOM (BEAKER) 129 mg/dL 70-105 (test cmvi=733) CALCIUM (BEAKER) (test 9.2 mg/dL 8.4-10.2 ukyn=137) EGFR (BEAKER) (test 147 mL/min/1.73 sq m ESTIMATED GFR IS NOT vrzj=9204) ACCURATE CREATININE CLEARANCE IN PREDICTING GLOMERULAR FILTRATION RATE. ESTIMATED GFR IS NOT APPLICABLE FOR DIALYSIS PATIENTS. CBC W/PLT COUNT & AUTO [id number] 15:40:00 Test Item Value Reference Range Comments WHITE BLOOD CELL COUNT (BEAKER) (test ltaq=670) 15.5 K/ L 3.5-10.5 RED BLOOD CELL COUNT (BEAKER) (test zeaw=802) 2.13 M/ L 3.93-5.22 HEMOGLOBIN (BEAKER) (test rpej=301) 6.8 GM/DL 11.2-15.7 HEMATOCRIT (BEAKER) (test cfpe=120) 21.1 % 34.1-44.9 MEAN CORPUSCULAR VOLUME (BEAKER) (test yhfi=268) 99.1 fL 79.4-94.8 MEAN CORPUSCULAR HEMOGLOBIN (BEAKER) (test 31.9 pg 25.6-32.2 ytwl=277) MEAN CORPUSCULAR HEMOGLOBIN CONC (BEAKER) (test 32.2 GM/DL 32.2-35.5 xtey=800) RED CELL DISTRIBUTION WIDTH (BEAKER) (test 20.8 % 11.7-14.4 spvt=185) PLATELET COUNT (BEAKER) (test proj=997) 178 K/CU MM 150-450 MEAN PLATELET VOLUME (BEAKER) (test rccy=588) 11.9 fL 9.4-12.3 NUCLEATED RED BLOOD CELLS (BEAKER) (test 2 /100 WBC 0-0 kwrt=358) NEUTROPHILS RELATIVE PERCENT (BEAKER) (test 47 % hvjj=899) LYMPHOCYTES RELATIVE PERCENT (BEAKER) (test 34 % svro=249) MONOCYTES RELATIVE PERCENT (BEAKER) (test 16 % symk=948) EOSINOPHILS RELATIVE PERCENT (BEAKER) (test 3 % eyow=535) BASOPHILS RELATIVE PERCENT (BEAKER) (test 0 % iwns=953) NEUTROPHILS ABSOLUTE COUNT (BEAKER) (test 7.20 K/ L 1.56-6.13 xwhg=102) LYMPHOCYTES ABSOLUTE COUNT (BEAKER) (test 5.22 K/ L 1.18-3.74 wqyj=900) MONOCYTES ABSOLUTE COUNT (BEAKER) (test 2.50 K/ L 0.24-0.36 dirt=463) EOSINOPHILS ABSOLUTE COUNT (BEAKER) (test 0.48 K/ L 0.04-0.36 gtrg=942) BASOPHILS ABSOLUTE COUNT (BEAKER) (test 0.02 K/ L 0.01-0.08 nqzr=016) IMMATURE GRANULOCYTES-RELATIVE PERCENT (BEAKER) 1 % 0-1 (test vktd=4111) (MANUAL DIFFERENTIAL)2017-05-28 15:40:00 Test Item Value Reference Range Comments TOTAL COUNTED (BEAKER) (test ngou=7175) WBC MORPHOLOGY (BEAKER) (test pard=993) Normal PLT MORPHOLOGY (BEAKER) (test mabd=484) Normal ANISOCYTOSIS (BEAKER) (test vjrp=485) 2+ moderate POLYCHROMATOPHILLIC RBCS(BEAKER) (test snbx=321) 2+ moderate SICKLE CELLS (BEAKER) (test bymz=176) 1+ few TARGET CELLS (BEAKER) (test msnz=375) 2+ moderate URINALYSIS W/ [id number] 15:13:00 Test Item Value Reference Range Comments COLOR (BEAKER) (test lisi=911) Yellow CLARITY (BEAKER) (test zsov=027) Clear SPECIFIC GRAVITY UA (BEAKER) (test uucf=976) 1.008 1.001-1.035 PH UA (BEAKER) (test tdsh=207) 6.0 5.0-8.0 PROTEIN UA (BEAKER) (test dhff=597) Negative Negative GLUCOSE UA (BEAKER) (test dvzr=415) Negative Negative KETONES UA (BEAKER) (test wqmo=207) Negative Negative BILIRUBIN UA (BEAKER) (test hpkx=499) Negative Negative BLOOD UA (BEAKER) (test oqvx=810) Negative Negative NITRITE UA (BEAKER) (test hkjg=731) Negative Negative LEUKOCYTE ESTERASE UA (BEAKER) (test tdcx=836) Negative Negative UROBILINOGEN UA (BEAKER) (test vzvg=946) 0.2 mg/dL 0.2-1.0 RBC UA (BEAKER) (test omjd=969) < /HPF WBC UA (BEAKER) (test uted=129) 2 /HPF MUCUS (BEAKER) (test tzlz=5559) Rare SQUAMOUS EPITHELIAL (BEAKER) (test duob=074) 5 /HPF SOURCE(BEAKER) (test oyfj=5929) Urine, Voided BASIC METABOLIC [id number] 06:26:00 Test Item Value Reference Range Comments SODIUM (BEAKER) (test 139 meq/L 136-145 hrfy=795) POTASSIUM (BEAKER) (test 3.8 meq/L 3.5-5.1 mlct=152) CHLORIDE (BEAKER) (test 104 meq/L 98-107 sipp=000) CO2 (BEAKER) (test 30 meq/L 22-29 hkoo=979) BLOOD UREA NITROGEN 6 mg/dL 7-21 (BEAKER) (test qufc=595) CREATININE (BEAKER) (test 0.56 mg/dL 0.57-1.25 dewc=851) GLUCOSE RANDOM (BEAKER) 102 mg/dL 70-105 (test uhok=419) CALCIUM (BEAKER) (test 9.0 mg/dL 8.4-10.2 elgr=192) EGFR (BEAKER) (test 147 mL/min/1.73 sq m ESTIMATED GFR IS NOT aukw=3415) ACCURATE CREATININE CLEARANCE IN PREDICTING GLOMERULAR FILTRATION RATE. ESTIMATED GFR IS NOT APPLICABLE FOR DIALYSIS PATIENTS.
[2018-01-21 22:55] LABS: Bicarbonate 27 mEq/L (21-31); Glucose Level 94 mg/dL (65-120); Potassium 4.4 mEq/L (3.6-5.0); Sodium Level 136 mEq/L (135-145)
[2018-01-21] MEDS ORDERED: PROMETHAZINE 25 MG/ML VIAL ONE (22:55)
[2018-01-21 22:56] LABS: Hematocrit 22.3 % (36.0-45.0); MCH 34.9 pg (27.0-35.0); MCV 101.4 fL (80-100); MPV 9.4 fL (7.6-11.3)
[2018-01-21] MEDS ORDERED: NA CHLORIDE 0.9% 1,000 ML ONE (22:56)
[2018-01-21] MEDS ORDERED: MORPHINE 4 MG/ML SYR ONE ×2 (22:56→23:37)
[2018-01-21 22:59] LABS: Protime INR 1.21
[2018-01-21 23:01] LABS: ALT/SGPT 79 IU/L (10-60); AST/SGOT 132 IU/L (10-42); Alkaline Phosphatase 215 IU/L (42-121); BUN Blood Urea Nitrogen 10 mg/dL (6-20); Bilirubin Direct 0.6 mg/dL (0-0.2); Bilirubin Total 2.8 mg/dL (0.3-1.2); Creatine Phosphokinase 13 IU/L (22-269); Magnesium 1.8 mg/dL (1.8-2.5); Protein, Total 10.1 g/dL (6.0-8.3)
[2018-01-21 23:04] LABS: CKMB Creatine Kinase MB 0.3 ng/ml (0.3-4.0)
[2018-01-21 23:56] LABS: Anisocytosis 3+; Blood Morphology Comment NOTED (NOT SEEN); Platelet Estimate ADEQ; Polychromasia 3+; Target Cells 3+
--- NOTE | 2018-01-21 23:59 | ER ---
Nurse's Notes [facility] Name: Brennon Berg Age: 37 yrs Sex: Female : 1980 Arrival Date: 01/21/2018 Time: 17:45 Bed 26 Private MD: None, None Diagnosis: Sickle-cell thalassemia with crisis Presentation: 01/21 18:02 Presenting complaint: Patient states: right-sided chest pain and nausea x 2 days ago. aa5 Pt denies vomiting. Pt states "I feel like I am having a sickle cell flare up". Transition of care: patient was not received from another setting of care. Onset of symptoms was January 2018. Risk Assessment: Do you want to hurt yourself or someone else? Patient reports no desire to harm self or others. Initial Sepsis Screen: Does the patient meet any 2 criteria? No. Patient's initial sepsis screen is negative. Does the patient have a suspected source of infection? No. Patient's initial sepsis screen is negative. Care prior to arrival: None. 18:02 Method Of Arrival: Ambulatory aa5 18:02 Acuity: TEMI 3 aa5 Triage Assessment: 22:00 General: Appears in no apparent distress. well developed, well nourished, Behavior is rk2 calm, cooperative. Pain: Complains of pain in generalized bodyaches. Neuro: Level of Consciousness is alert, obeys commands, Oriented to person, place, time, situation. Cardiovascular: Rhythm is irregular. Respiratory: Airway is patent Respiratory effort is even, unlabored, Respiratory pattern is regular, symmetrical. Derm: Skin is pink, warm \\T\\ dry. 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 - Social history:: Smoking status: unknown. - Ebola Screening: : Patient negative for fever greater than or equal to 101.5 degrees Fahrenheit, and additional compatible Ebola Virus Disease symptoms. Screenin:00 Abuse screen: Denies threats or abuse. rk2 22:00 Nutritional screening: No deficits noted. Tuberculosis screening: No symptoms or risk rk2 factors identified. Fall Risk None identified. Assessment: 22:50 Reassessment: Per pt. she is okay to take morphine in lower doses. rk2 23:14 Reassessment: Notified Dr. Fountain of pt. hemoglobin 7.7. Pain: Pain does not radiate. rk2 Pain began 2-3 days ago. 23:39 Reassessment: Patient appears in no apparent distress at this time. No changes from rk2 previously documented assessment. Patient and/or family updated on plan of care and expected duration. Pain level reassessed. 23:39 Reassessment: Verbal order received from Dr. Fountain for Morphine 4 mg. rk2 Vital Signs: 18:03 BP 134 / 100; Pulse 92; Resp 18 S; Temp 98.0(TE); Pulse Ox 97% on R/A; Weight 68.04 kg aa5 (R); Height 5 ft. 3 in. (160.02 cm) (R); Pain 10/10; 22:04 BP 138 / 108; Pulse 69; Resp 17; Pulse Ox 100% on R/A; rk2 23:00 BP 148 / 102; Pulse 86; Resp 17; Pulse Ox 100% on R/A; rk2 01/22 00:00 BP 157 / 109; Pulse 84; Resp 16; Pulse Ox 100% on R/A; rk2 01/21 18:03 Body Mass Index 26.57 (68.04 kg, 160.02 cm) aa5 ED Course: 01/21 17:45 Patient arrived in ED. mr 17:45 None, None is Private Physician. mr 18:01 Arm band placed on. aa5 18:03 Triage completed. aa5 18:06 EKG completed in triage. Results shown to . aa5 18:18 EKG done, by eyewear manufacturing tech. dt2 20:09 Cristiano Fountain MD is Attending Physician. tw4 20:29 Marisol Padilla, NIKKI is Primary Nurse. rk2 22:00 Patient has correct armband on for positive identification. Placed in gown. Bed in low rk2 position. Call light in reach. teletypesetter monitor on. Pulse ox on. 22:00 Patient maintains SpO2 saturation greater than 95% on room air. rk2 22:19 XRAY Chest (1 view) Sent. rk2 22:23 X-ray completed. Portable x-ray completed in exam room. Patient tolerated procedure kc2 well. 22:24 XRAY Chest (1 view) In Process Unspecified. EDPR 06 00:13 No provider procedures requiring assistance completed. IV discontinued. rk2 00:22 IV discontinued, intact, No redness/swelling at site. Pressure dressing applied, port tl3 flushed with 100 unit Heparin. Administered Medications: 01/21 23:02 Drug: Phenergan 12.5 mg Route: IVP; Site: Port-a-cath; 2 01/22 00:11 Follow up: Response: No adverse reaction 2 01/21 23:02 Drug: NS 0.9% 1000 ml Route: IV; Rate: 1 bolus; Site: Port-a-cath; rk2 01/22 00:00 Follow up: Response: No adverse reaction; IV Status: Completed infusion rk2 01/21 23:03 Drug: morphine 4 mg Route: IVP; Site: Port-a-cath; rk2 01/22 00:11 Follow up: Response: No adverse reaction rk2 01/21 23:03 Not Given (Patient Refused): Zofran 4 mg PO once rk2 23:03 Not Given (Patient Refused): TORadol 30 mg IVP once rk2 23:39 Drug: morphine 4 mg Route: IVP; Site: Port-a-cath; 2 01/22 00:11 Follow up: Response: No adverse reaction [facility] Outcome: 01/21 23:59 Discharge ordered by . tw4 01/22 00:13 Discharged to home ambulatory. rk2 Discharged to home with family. Condition: improved Discharge instructions given to patient. 00:30 Patient left the ED. tl3 Signatures: Dispatcher [employer] ANALIPR Yohana Hollis Audri, RN RN demario5 Jessica Tarango2 Cristiano Fountain MD MD tw4 Marisol Padilla RN RN rk2 Queenie Real RN RN tl3 Yaz Kennedy2
--- NOTE | 2018-01-21 23:59 | EDPHYS ---
Physician Documentation [facility] Name: Brennon Berg Age: 37 yrs Sex: Female : 1980 Arrival Date: 01/21/2018 Time: 17:45 Bed 26 Private MD: None, None ED Physician Cristiano Fountain HPI: 01/22 03:45 This 37 yrs old Black Female presents to ER via Ambulatory with complaints of Chest tw4 Pain. 03:45 The patient or guardian reports chest pain that is located primarily in the chest tw4 diffusely. The pain does not radiate. Associated signs and symptoms: Pertinent positives: arthralgias. The chest pain is described as dull. Duration: The patient or guardian reports a single episode. Modifying factors: The symptoms are alleviated by nothing. the symptoms are aggravated by nothing. Severity of pain: At its worst the pain was. The patient has not experienced similar symptoms in the past. 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 - Social history:: Smoking status: unknown. - Ebola Screening: : Patient negative for fever greater than or equal to 101.5 degrees Fahrenheit, and additional compatible Ebola Virus Disease symptoms. ROS: 01/22 06:22 Constitutional: Negative for fever, chills, and weight loss, Respiratory: Negative for tw4 shortness of breath, cough, wheezing, and pleuritic chest pain, Abdomen/GI: Negative for abdominal pain, nausea, vomiting, diarrhea, and constipation, MS/Extremity: Negative for injury and deformity, Skin: Negative for injury, rash, and discoloration, Neuro: Negative for headache, weakness, numbness, tingling, and seizure. Cardiovascular: Positive for chest pain. Exam: 06:22 Constitutional: This is a well developed, well nourished patient who is awake, alert, tw4 and in no acute distress. Head/Face: Normocephalic, atraumatic. Chest/axilla: Normal chest wall appearance and motion. Nontender with no deformity. No lesions are appreciated. Cardiovascular: Regular rate and rhythm with a normal S1 and S2. No gallops, murmurs, or rubs. Normal PMI, no JVD. No pulse deficits. Respiratory: Lungs have equal breath sounds bilaterally, clear to auscultation and percussion. No rales, rhonchi or wheezes noted. No increased work of breathing, no retractions or nasal flaring. Abdomen/GI: Soft, non-tender, with normal bowel sounds. No distension or tympany. No guarding or rebound. No evidence of tenderness throughout. Skin: Warm, dry with normal turgor. Normal color with no rashes, no lesions, and no evidence of cellulitis. MS/ Extremity: Pulses equal, no cyanosis. Neurovascular intact. Full, normal range of motion. Vital Signs: 01/21 18:03 BP 134 / 100; Pulse 92; Resp 18 S; Temp 98.0(TE); Pulse Ox 97% on R/A; Weight 68.04 kg aa5 (R); Height 5 ft. 3 in. (160.02 cm) (R); Pain 10/10; 22:04 BP 138 / 108; Pulse 69; Resp 17; Pulse Ox 100% on R/A; rk2 23:00 BP 148 / 102; Pulse 86; Resp 17; Pulse Ox 100% on R/A; rk2 01/22 00:00 BP 157 / 109; Pulse 84; Resp 16; Pulse Ox 100% on R/A; rk2 01/21 18:03 Body Mass Index 26.57 (68.04 kg, 160.02 cm) aa5 MDM: 01/21 20:09 Patient medically screened. tw4 01/22 06:22 Differential diagnosis: acute pericarditis, anxiety, pericarditis, pneumonia, pulmonary tw4 embolus, unstable angina. Data reviewed: vital signs, nurses notes. 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 Special discussion: Based on the patient's history, exam, and Dx evaluation, there is no indication for emergent intervention or inpatient Tx. It is understood by the patient/guardian that if the Sx's persist or worsen they need to return immediately for re-evaluation. I discussed with the patient/guardian in detail that at this point there is no indication for admission to the hospital. It is understood, however, that if the symptoms persist or worsen the patient needs to return immediately for re-evaluation. 01/21 22: Order name: Basic Metabolic Panel; Complete Time: 00:00 tw4 01/21 22: Order name: BNP; Complete Time: 00:00 tw4 01/21 22: Order name: CBC with Diff; Complete Time: 00:4 01/22 00:00 Interpretation: Normal except: WBC 15.6; HGB 7.7; RBC 2.20; HCT 22.3; MCV 101.4; RDW tw4 32.3. 01/21 22: Order name: Ckmb; Complete Time: 00:00 tw4 01/21 22: Order name: CPK; Complete Time: 00:00 tw4 01/22 00:00 Interpretation: Normal except: CPK 13. 01/21: Order name: LFT's; Complete Time: 00:00 tw4 01/22 00:00 Interpretation: Normal except: SGOT 132; SGPT 79; ALK 215; BILIT 2.8; BILID 0.6; TP tw4 10.1; GLOB 6.1; A/G 0.7. 01/21 22: Order name: Magnesium; Complete Time: 00:00 tw4 01/21 22: Order name: PT-INR; Complete Time: 00:00 tw4 01/21 22: Order name: Ptt, Activated; Complete Time: 00:00 4 01/21 22:03 Order name: Troponin (emerg Dept Use Only); Complete Time: 00:00 tw4 01/21 22: Order name: XRAY Chest (1 view) 01/21 23:10 Order name: Manual Differential; Complete Time: 00:00 EDMS 01/22 00:00 Interpretation: Normal except: SICKLE 1+. 01/21 22:03 Order name: EKG; Complete Time: : tw4 01/21 22:03 Order name: Cardiac monitoring; Complete Time: 22:18 tw4 01/21 22:03 Order name: EKG - Nurse/Tech; Complete Time: 22:18 tw4 01/21 22:03 Order name: IV Saline Lock; Complete Time: 22:18 tw4 01/21 22:03 Order name: Labs collected and sent; Complete Time: 22:27 tw4 01/21 22:03 Order name: O2 Per Protocol; Complete Time: 22:18 tw4 01/21 22:03 Order name: O2 Sat Monitoring; Complete Time: 22:19 tw4 Administered Medications: 01/21 23:02 Drug: Phenergan 12.5 mg Route: IVP; Site: Port-a-cath; 2 01/22 00:11 Follow up: Response: No adverse reaction [facility] 01/21 23:02 Drug: NS 0.9% 1000 ml Route: IV; Rate: 1 bolus; Site: Port-a-cath; 2 01/22 00:00 Follow up: Response: No adverse reaction; IV Status: Completed infusion [facility] 01/21 23:03 Drug: morphine 4 mg Route: IVP; Site: Port-a-cath; 2 01/22 00:11 Follow up: Response: No adverse reaction [facility] 01/21 23:03 Not Given (Patient Refused): Zofran 4 mg PO once 2 23:03 Not Given (Patient Refused): TORadol 30 mg IVP once 2 23:39 Drug: morphine 4 mg Route: IVP; Site: Port-a-cath; 2 01/22 00:11 Follow up: Response: No adverse reaction [facility] Disposition: 01/21/18 23:59 Discharged to Home. Impression: Sickle-cell thalassemia with crisis. - Condition is Stable. - Discharge Instructions: Sickle Cell Anemia, Adult, [id number]. - Medication Reconciliation Form, Thank You Letter, Antibiotic Education, Prescription Opioid Use form. - Follow up: Private Physician; When: As needed; Reason: If symptoms return, Recheck today's complaints, Re-evaluation by your physician. - Problem is new. - Symptoms have improved. Signatures: Dispatcher [employer] EDMS Cecelia Toussaint RN RN aa5 Cristiano Fountain MD MD tw4 Marisol Padilla RN RN rk2 Farhan, Queenie, RN RN tl3 Corrections: (The following items were deleted from the chart) 00:15 01/21 22:03 Urine Dipstick-Ancillary ordered. tw4 rk2 01/22 00:30 01/21 23:59 01/21/2018 23:59 Discharged to Home. Impression: Sickle-cell thalassemia tl3 with crisis. Condition is Stable. Forms are Medication Reconciliation Form, Thank You Letter, Antibiotic Education, Prescription Opioid Use. Follow up: Private Physician; When: As needed; Reason: If symptoms return, Recheck today's complaints, Re-evaluation by your physician. Problem is new. Symptoms have improved. tw4
[2018-01-22] MEDS ORDERED: HEPARIN 500 UNIT/5 ML SYR IV ONE (00:09)
[2018-01-22 00:36] VITALS: TEMP 98
[2018-01-22 00:37] VITALS: O2SAT 100
[2018-01-22 00:39] VITALS: BP 157/109
--- NOTE | 2018-01-22 08:23 | RAD REPORT ---
EXAM DESCRIPTION: RAD - Chest Single View - 01/21/2018 10:24 pm CLINICAL HISTORY: Chest pain. COMPARISON: 07/10/2017 FINDINGS: Portable technique limits examination quality. The lungs are grossly clear. The heart is upper limit normal in size. Right-sided venous catheter has tip in the SVC. No displaced fractures. IMPRESSION: No acute intrathoracic process suspected.
--- NOTE | 2018-01-22 13:44 | EKG ---
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
== END 2018-01-22 00:30 | disposition home or self-care (01) ==
LOC: ER 17:43
DX: D57.419 Sickle-cell thalassemia, unspecified, with crisis (principal); Z88.6 Allergy status to analgesic agent; Z88.8 Allergy status to other drugs, medicaments and biological substances; Z86.73 Personal history of transient ischemic attack (TIA), and cerebral infarction without residual deficits
CPT/HCPCS: 36415; 71045; 80048; 80076; 82550; 82553; 83735; 83880; 84484; 85025; 85610; 85730; 93005; 96361; 96374; 96375; 99285; J1642; J2550; J7030

== ENCOUNTER 2018-01-29 07:31 | Emergency (ER) | payer OTHER ==
--- OUTSIDE RECORDS SUMMARY | 2018-01-29 07:33 | XMS REPORT | Clinical Summary ---
:1980 Author Organization [facility] Address [address] [place] [address] Phone Care Team Providers Name Role Phone Unavailable Primary Care Provider Unavailable Allergies Active Allergy Reactions Severity Noted Date Comments Tramadol Other (See Comments) High 02/21/2014 Seizure Morphine Other (See Comments) 11/27/2013 seizures Butorphanol Tartrate Other (See Comments) 11/27/2013 seizures Wls-Fx-Nmb-Hmtcqpvw-Tyzyj-Seue 10/01/2014 seizure Ketorolac Other (See Comments) 11/27/2013 [...] Pain 12/01/2013 Sickle cell anemia with crisis ([facility]) 11/30/2013 Iron overload due to repeated red blood cell transfusions 11/29/2013 History of drug abuse 11/29/2013 Sickle cell crisis (HCC) 11/28/2013 Total body pain 11/28/2013 Cough 11/28/2013 Encounters Date Type Specialty Care Team Description 11/22/2017 Procedure Pass 11/22/2017 Surgery Manny Fuetnes MD 11/04/2017 - Hospital Encounter Oncology Lise [...] (HCC) (Primary Traci Obregon, RN Dx) after 01/28/2017 Family History Medical History Relation Name Comments [...] 11/22/2017 1:14 PM CDT chest pain after 01/28/2017 Results CARDIAC CATH REPORT - SCAN (11/27/2017 8:52 PM)Calcium, Ionized (11/25/2017 4: 38 AM)Only the most recent of14 resultswithin the time period is included. Component Value Ref Range Calcium, Ion 1.10 (L) 1.12 - 1.27 mmol/L pH, Blood 7.30 Specimen Performing Laboratory Blood [address] [address] Phosphorus (11/25/2017 4:38 AM)Only the most recent of15 resultswithin the time period is included. Component Value Ref Range Phosphorus 4.7 2.3 - 4.7 mg/dL Specimen Performing Laboratory Blood [address] [address] Magnesium (11/25/2017 4:38 AM)Only the most recent of16 resultswithin the time period is included. Component Value Ref Range Magnesium 1.4 (L) 1.6 - 2.6 mg/dL Specimen Performing Laboratory Blood [address] [address] Basic Metabolic Panel (11/25/2017 4:38 AM)Only the [...] DIALYSIS PATIENTS. Specimen Performing Laboratory Blood [address] [address] Uric acid (11/24/2017 5:36 AM) Component Value Ref Range Uric Acid 4.8 2.6 - 7.2 mg/dL Specimen Performing Laboratory Blood [address] [address] Lactate dehydrogenase (LDH) (11/24/2017 5:36 AM) Component Value Ref Range LDH 489 (H) 125 - 220 U/L Specimen Performing Laboratory Blood [address] [address] Creatine Kinase (CK) (11/24/2017 5:36 AM) Component Value Ref Range Total CK 8 (L) 29 - 200 U/L Specimen Performing Laboratory Blood [address] [address] Potassium (11/23/2017 5:35 PM)Only the most recent of3 resultswithin the time period is included. Component Value Ref Range Potassium 5.5 (H) 3.5 - 5.1 meq/L Specimen Performing Laboratory Blood - Central Venous Line [address] [address] Narrative Call if K > 5.4 to renal [phone] CBC with platelet count + automated diff [...] 1 % Specimen Performing Laboratory Blood [facility] [address] [place] [address] CBC with platelet count + automated diff (11/23/2017 4:50 AM)Only the most recent of26 resultswithin the time period is included. Specimen Performing Laboratory Blood Narrative The following orders were created for panel order CBC with platelet count + automated diff. Procedure Abnormality Status --------- ------ CBC with platelet count ...[[id number]]AbnormalFinal result Please view results for these tests on the individual orders. Electrolytes (11/22/2017 12:30 PM) Component Value Ref Range Sodium 137 136 - 145 meq/L Potassium 5.4 (H) 3.5 - 5.1 meq/L Chloride 100 98 - 107 meq/L CO2 30 (H) 22 - 29 meq/L Specimen Performing Laboratory Blood [address] [address] Narrative Call results [id number] B-type Natriuretic Factor (BNP) (11/21/2017 4:56 AM)Only the most recent of3 resultswithin the time period is included. Component Value Ref Range BNP 120 (H) 0 - 100 pg/mL Specimen Performing Laboratory Blood [address] [address] Blood gas, venous (11/20/2017 6:44 AM) Component [...] 21.0 % Specimen Performing Laboratory Blood [address] [address] Ferritin (11/19/2017 9:46 AM) Component Value Ref Range Ferritin [address]64[address] (H) 5 - 275 ng/mL Specimen Performing Laboratory Blood [address] [address] CBC (Hemogram only) (11/19/2017 6:25 AM) Component [...] Laboratory Blood - Central Venous Line [address] [address] TRANSFUSION SERVICE REPORT - SCAN (11/17/2017 5:40 [...] Laboratory Blood - Central Venous Line [address] [address] Prepare RBC (11/16/2017 11:55 PM) Component Value Ref Range Unit ABO O Pos UNIT NUMBER [id number] Status TRANSFUSED Blood Bank Product RED BLOOD CELLS PRODUCT CODE [id number] Unit ABO O Pos UNIT NUMBER [id number] Status TRANSFUSED Blood Bank Product RED BLOOD CELLS PRODUCT CODE [id number] CROSSMATCH COMPATIBLE CROSSMATCH COMPATIBLE Specimen Performing Laboratory [...] MD Report Verified Date/Time:11/16/2017 10:47:19 Reading Location: [facility] Radiology Reading Room Procedure Note Interface, [...] Report Verified Date/Time: 11/16/2017 10:47:19 Reading Location: [facility] Radiology Reading Room mandible less than [...] MD Report Verified Date/Time:11/16/2017 12:28:43 Reading Location: [facility] Radiology Reading Room Procedure Note Interface, [...] - Central Venous Line [facility] [address] [address] Actin (Smooth Muscle) Antibody, IgG (11/16/2017 9:35 [...] - Central Venous Line [facility] [address] [address] Narrative Performing Lab [facility] [address] [address] Irwin Marquez MD, PhD AMARILYS Titer & Pattern (11/16/2017 9:35 AM) Component Value Ref Range AMARILYS Titer 1:160 AMARILYS Pattern Multiple nuclear dots pattern Specimen Performing Laboratory Blood - Central Venous Line [address] [address] Hepatitis panel, acute (11/16/2017 9:35 AM) Component Value Ref Range Hep A IgM Nonreactive Nonreactive Hep B C IgM Nonreactive Nonreactive Hepatitis C Ab Nonreactive Nonreactive hepatitis B Surface Ag Nonreactive Nonreactive Specimen Performing Laboratory Blood - Central Venous Line [address] [address] Anti-Nuclear Antibody (AMARILYS) (11/16/2017 9:35 AM) Component Value Ref Range AMARILYS Positive (A) Negative Specimen Performing Laboratory Blood - Central Venous Line [address] [address] Manual Differential (11/16/2017 4:23 AM)Only the most recent of16 resultswithin the time period is included. Component Value Ref Range Total Counted WBC Morphology Normal Platelet Morphology Normal Polychromasia 1+ few Sickle Cells 1+ few Target Cells 2+ moderate Specimen Performing Laboratory Blood - Central Venous Line [address] [address] Transfuse Leuko-Red RBC (11/15/2017 11:12 PM)Only the most recent of10 resultswithin the time period is included.Urinalysis w/Microscopic (11/15/2017 6:45 PM)Only the most recent of4 resultswithin the time period is included. Component Value Ref Range Color, UA Yellow Clarity, UA Clear Specific [place], UA 1.006 1.001 - 1.035 pH, UA [...] Performing Laboratory Urine - Urine, Voided [address] [address] Prepare Leuko-Red RBC (11/15/2017 1:30 PM)Only the most recent of7 resultswithin the time period is included. Component Value Ref Range Unit ABO O Pos UNIT NUMBER [id number] Status WORK IN PROGRESS Blood Bank Product RED BLOOD CELLS PRODUCT CODE [id number] Unit ABO O Pos UNIT NUMBER [id number] Status CANCELED Blood Bank Product RED BLOOD CELLS PRODUCT CODE [id number] Specimen Performing Laboratory Other SAFETRACE TX XR [...] MD Report Verified Date/Time:11/15/2017 12:43:04 Reading Location: [facility] Radiology Reading Room Procedure Note Interface, [...] Report Verified Date/Time: 11/15/2017 12:43:04 Reading Location: [facility] Radiology Reading Room Antibody identification (11/15/2017 [...] Scrn POSITIVE Specimen Performing Laboratory Blood [facility] [address] [address] US Endovaginal (11/15/2017 7:00 AM) Specimen Performing [...] MD Report Verified Date/Time:11/15/2017 09:03:15 Reading Location: [address] Ultrasound Reading Room Procedure Note Interface, [...] Report Verified Date/Time: 11/15/2017 09:03:15 Reading Location: [place] [id number] Ultrasound Reading Room Lipase (11/15/2017 5:30 AM) Component Value Ref Range Lipase 95 (H) 8 - 78 U/L Specimen Performing Laboratory Blood - Central Venous Line [address] [address] Urine culture (11/14/2017 6:19 AM)Only the most recent of2 resultswithin the time period is included. Component Value Ref Range Result >100,000 col/mL skin valentino Specimen Performing Laboratory Urine - Urine, Clean Catch [address] [address] Blood culture (11/13/2017 11:20 PM)Only the most recent of2 resultswithin the time period is included. Component Value Ref Range Result No growth in 5 days Specimen Performing Laboratory Blood - Portacath [address] [address] ECHOCARDIOGRAM REPORT - SCAN (11/10/2017 1:20 PM)Comprehensive [...] Laboratory Blood - Central Venous Line [address] [address] 2D Echo W/Doppler(CW/PW/Color) (11/09/2017 6:46 PM) Component Value Ref Range Ejection Fraction Specimen Performing Laboratory [facility] E[facility] MKCKESSON CPACS Narrative Transthoracic Echocardiography Report (TTE) Demographics Patient NameSMITH, ALEESHIADate of Study11/09/2017 DIANA Gender Female Visit [id number] Race Black [id number] Number Date of 1980 Referringzach Lezama Physician Age 37 year(s) Hospice Plan Administrator Lou Price RDCS Interpreting [facility] Needs to [...] Study 11/09/2017 DIANA Gender Female Visit Number [id number] Race Black Room Number [id number] Number Date of 1980 Referring Neal Lezama Physician Age 37 year(s) Hospice Plan Administrator Lou Price RDCS Interpreting [facility] Needs to [...] MD Report Verified Date/Time:11/08/2017 20:41:24 Reading Location: [address] Reading Room Procedure Note Interface, External [...] Report Verified Date/Time: 11/08/2017 20:41:24 Reading Location: [address] Reading Room Sodium, random urine (11/08/2017 5:33 AM) Component Value Ref Range Sodium Urine 65 meq/L Specimen Performing Laboratory Urine - Urine, Voided [address] [address] Narrative Reference Range: No Normals Protein, random urine (11/08/2017 5:33 AM) Component Value Ref Range Protein, Urine 24 (H) 0 - 14 mg/dL Specimen Performing Laboratory Urine - Urine, Voided [address] [address] Creatinine, random urine (11/08/2017 5:33 AM) Component Value Ref Range Creatinine, Ur 46.0 mg/dL Specimen Performing Laboratory Urine - Urine, Voided [address] [address] Narrative Reference Range: No Normals Eosinophil smear (11/08/2017 5:33 AM) Component Value Ref Range Eosinophil Smear No EOS seen No EOS seen Specimen Performing Laboratory Urine - Urine, Voided [address] [address] [address] abdomen/pelvis without iv contrast (11/08/2017 3:01 [...] MD Report Verified Date/Time:11/08/2017 08:29:54 Reading Location: [facility] Diagnostic Imaging Reading Room - [place] [address] Procedure Note Interface, External Ris In - [...] Report Verified Date/Time: 11/08/2017 08:29:54 Reading Location: [facility] Diagnostic Imaging Reading Room - [facility] F1 1120 abdomen complete (11/07/2017 [...] MD Report Verified Date/Time:11/07/2017 19:58:17 Reading Location: [address] Consult Reading Room Procedure Note Interface, [...] Report Verified Date/Time: 11/07/2017 19:58:17 Reading Location: [facility] [id number] Consult Reading Room Lactic acid, venous, whole blood (11/07/2017 3:32 PM) Component Value Ref Range Lactate, Venous 0.9Comment: Specimen slightly hemolyzed 0.5 - 2.2 mmol/L Specimen Performing Laboratory Blood - [place] [address] Narrative Effective 12/22/2015: Units/Reference Range Change New: 0.5-2.2 mmol/LPrevious: 5-20 mg/dL EKG-SCANNED (06/11/2017 10:10 AM)ECG 12 lead (06/05/2017 8:52 PM) Specimen Performing Laboratory GE MUSE Narrative Ventricular Rate 80 BPM Atrial Rate 80 BPM P-R Interval 180 ms QRS Duration 76 ms Q-T Interval 394 ms QTC Calculation(Bazett) 454 ms P [place] 49 degrees R [place] 20 degrees T [place] 34 degrees Normal sinus rhythm Normal ECG [...] 394 ms QTC Calculation(Bazett) 454 ms P [place] 49 degrees R [place] 20 degrees T [place] 34 degrees Normal sinus rhythm Normal ECG When compared with ECG of 15-SEP-2016 00:53, No significant change was found Confirmed by Wade GARCIA BASANT ([id number]) on 06/07/2017 1:13:44 PM Troponin I (06/05/2017 8:40 PM) Component Value Ref Range Troponin I <0.01 0.00 - 0.03 ng/mL Specimen Performing Laboratory Blood - Central Venous Line [address] [address] Narrative Troponin I (TnI) levels must be [...] Performing Laboratory Blood - Central Venous Line [address] [place] [address] Narrative CK-MB Reference Range: <6.7Normal 6.7-10.0Borderline >10.0 Abnormal after 01/28/2017
--- OUTSIDE RECORDS SUMMARY | 2018-01-29 07:36 | XMS REPORT ---
:1980 [facility] Address [address] [place] [address] [address] [place] [address] Care Team Providers Name Role Phone TALISHA [...] Value Reference Range Comments SCAN RESULT (test [id number]) CALCIUM, [id number] 07:05:00 Test Item Value Reference Range Comments CALCIUM IONIZED (BEAKER) (test tahs=261) 1.10 mmol/L 1.12-1.27 PH, BLOOD (BEAKER) (test prho=6225) 7.30 [id number] 06:22:00 Test Item Value Reference Range Comments PHOSPHORUS (BEAKER) (test vakn=722) 4.7 mg/dL 2.3-4.7 [id number] 06:22:00 Test Item Value Reference Range Comments MAGNESIUM (BEAKER) (test ecyn=656) 1.4 mg/dL 1.6-2.6 BASIC METABOLIC [id number] 06:22:00 Test Item Value Reference Range Comments SODIUM (BEAKER) (test 135 meq/L 136-145 jdui=651) POTASSIUM (BEAKER) (test 4.5 meq/L 3.5-5.1 fgqe=115) CHLORIDE (BEAKER) (test 100 meq/L 98-107 dtlt=578) CO2 (BEAKER) (test 29 meq/L 22-29 zvyo=371) BLOOD UREA NITROGEN 19 mg/dL 7-21 (BEAKER) (test itgi=223) CREATININE (BEAKER) (test 0.76 mg/dL 0.57-1.25 nwyf=782) GLUCOSE RANDOM (BEAKER) 104 mg/dL 70-105 (test bevz=362) CALCIUM (BEAKER) (test 9.3 mg/dL 8.4-10.2 nlqh=912) EGFR (BEAKER) (test 103 mL/min/1.73 sq m ESTIMATED GFR IS NOT riuo=7202) ACCURATE CREATININE CLEARANCE IN PREDICTING GLOMERULAR FILTRATION RATE. ESTIMATED GFR IS NOT APPLICABLE FOR DIALYSIS PATIENTS. CREATINE KINASE (CK)2017-11-24 08:12:00 Test Item Value Reference Range Comments CREATINE KINASE TOTAL (BEAKER) (test nkhh=251) 8 U/L 29-200 URIC [id number] 08:01:00 Test Item Value Reference Range Comments URIC ACID (BEAKER) (test wnhs=493) 4.8 mg/dL 2.6-7.2 [id number] 08:01:00 Test Item Value Reference Range Comments MAGNESIUM (BEAKER) (test ytrq=390) 1.5 mg/dL 1.6-2.6 [id number] 08:01:00 Test Item Value Reference Range Comments PHOSPHORUS (BEAKER) (test jwji=135) 5.3 mg/dL 2.3-4.7 BASIC METABOLIC [id number] 08:01:00 Test Item Value Reference Range Comments SODIUM (BEAKER) (test 138 meq/L 136-145 rylg=903) POTASSIUM (BEAKER) (test 4.9 meq/L 3.5-5.1 bmng=336) CHLORIDE (BEAKER) (test 100 meq/L 98-107 vrnv=196) CO2 (BEAKER) (test 28 meq/L 22-29 vchn=397) BLOOD UREA NITROGEN 22 mg/dL 7-21 (BEAKER) (test uobi=478) CREATININE (BEAKER) (test 0.80 mg/dL 0.57-1.25 enyf=989) GLUCOSE RANDOM (BEAKER) 102 mg/dL 70-105 (test qqhr=512) CALCIUM (BEAKER) (test 9.3 mg/dL 8.4-10.2 znpu=640) EGFR (BEAKER) (test 97 mL/min/1.73 sq m ESTIMATED GFR IS NOT thmu=5813) ACCURATE CREATININE CLEARANCE IN PREDICTING GLOMERULAR FILTRATION RATE. ESTIMATED GFR IS NOT APPLICABLE FOR DIALYSIS PATIENTS. LACTATE DEHYDROGENASE (LDH)2017-11-24 08:01:00 Test Item Value Reference Range Comments LACTATE DEHYDROGENASE (BEAKER) (test selk=016) 489 U/L 125-220 [id number] 18:07:00 Test Item Value Reference Range Comments POTASSIUM (BEAKER) (test tlwr=613) 5.5 meq/L 3.5-5.1 Call if K > 5.4 to renal 713 790 1032CALCIUM, [id number] 06:51:00 Test Item Value Reference Range Comments CALCIUM IONIZED (BEAKER) (test wuhg=054) 1.08 mmol/L 1.12-1.27 PH, BLOOD (BEAKER) (test hjzh=4877) 7.35 CBC W/PLT COUNT & AUTO [id number] 06:25:00 Test Item Value Reference Range Comments WHITE BLOOD CELL COUNT (BEAKER) (test vtad=249) 18.3 K/ L 3.5-10.5 RED BLOOD CELL COUNT (BEAKER) (test vgfs=222) 2.30 M/ L 3.93-5.22 HEMOGLOBIN (BEAKER) (test egad=941) 6.5 GM/DL 11.2-15.7 HEMATOCRIT (BEAKER) (test mkvg=000) 21.1 % 34.1-44.9 MEAN CORPUSCULAR VOLUME (BEAKER) (test vxfs=887) 91.7 fL 79.4-94.8 MEAN CORPUSCULAR HEMOGLOBIN (BEAKER) (test 28.3 pg 25.6-32.2 liba=851) MEAN CORPUSCULAR HEMOGLOBIN CONC (BEAKER) (test 30.8 GM/DL 32.2-35.5 qzxg=190) RED CELL DISTRIBUTION WIDTH (BEAKER) (test 21.2 % 11.7-14.4 cnbg=899) PLATELET COUNT (BEAKER) (test fqpw=138) 414 K/CU MM 150-450 MEAN PLATELET VOLUME (BEAKER) (test gprr=271) 11.5 fL 9.4-12.3 NUCLEATED RED BLOOD CELLS (BEAKER) (test 0 /100 WBC 0-0 shyo=153) NEUTROPHILS RELATIVE PERCENT (BEAKER) (test 53 % bwmh=596) LYMPHOCYTES RELATIVE PERCENT (BEAKER) (test 25 % whwl=368) MONOCYTES RELATIVE PERCENT (BEAKER) (test 19 % vreg=449) EOSINOPHILS RELATIVE PERCENT (BEAKER) (test 2 % skpl=227) BASOPHILS RELATIVE PERCENT (BEAKER) (test 0 % sbpd=733) NEUTROPHILS ABSOLUTE COUNT (BEAKER) (test 9.74 K/ L 1.56-6.13 lwhc=226) LYMPHOCYTES ABSOLUTE COUNT (BEAKER) (test 4.57 K/ L 1.18-3.74 urpz=170) MONOCYTES ABSOLUTE COUNT (BEAKER) (test 3.51 K/ L 0.24-0.36 mzqx=392) EOSINOPHILS ABSOLUTE COUNT (BEAKER) (test 0.29 K/ L 0.04-0.36 bpjt=619) BASOPHILS ABSOLUTE COUNT (BEAKER) (test 0.07 K/ L 0.01-0.08 ixvh=168) IMMATURE GRANULOCYTES-RELATIVE PERCENT (BEAKER) 1 % 0-1 (test nnxi=4122) [id number] 05:35:00 Test Item Value Reference Range Comments PHOSPHORUS (BEAKER) (test jurm=153) 4.4 mg/dL 2.3-4.7 [id number] 05:35:00 Test Item Value Reference Range Comments MAGNESIUM (BEAKER) (test xtgi=873) 1.3 mg/dL 1.6-2.6 BASIC METABOLIC [id number] 05:35:00 Test Item Value Reference Range Comments SODIUM (BEAKER) (test 136 meq/L 136-145 mcdx=454) POTASSIUM (BEAKER) (test 5.4 meq/L 3.5-5.1 pmav=585) CHLORIDE (BEAKER) (test 97 meq/L 98-107 yczg=667) CO2 (BEAKER) (test 31 meq/L 22-29 oohs=550) BLOOD UREA NITROGEN 20 mg/dL 7-21 (BEAKER) (test vvmb=757) CREATININE (BEAKER) (test 0.75 mg/dL 0.57-1.25 iceg=136) GLUCOSE RANDOM (BEAKER) 81 mg/dL 70-105 (test ptan=210) CALCIUM (BEAKER) (test 9.5 mg/dL 8.4-10.2 ssjl=211) EGFR (BEAKER) (test 105 mL/min/1.73 sq m ESTIMATED GFR IS NOT khnh=6801) ACCURATE CREATININE CLEARANCE IN PREDICTING GLOMERULAR FILTRATION RATE. ESTIMATED GFR IS NOT APPLICABLE FOR DIALYSIS PATIENTS. [id number] 16:19:00 Test Item Value Reference Range Comments POTASSIUM (BEAKER) (test nakg=106) 5.2 meq/L 3.5-5.1 Repeat after 3 hours kayexalate was given; call result 713- [id number] 12:53:00 Test Item Value Reference Range Comments SODIUM (BEAKER) (test hcqn=196) 137 meq/L 136-145 POTASSIUM (BEAKER) (test frhx=880) 5.4 meq/L 3.5-5.1 CHLORIDE (BEAKER) (test hsyp=377) 100 meq/L 98-107 CO2 (BEAKER) (test ehqp=465) 30 meq/L 22-29 Call results [id number] 11:14:00 Test Item Value Reference Range Comments POTASSIUM (BEAKER) (test mveg=894) 5.8 meq/L 3.5-5.1 [id number] 06:40:00 Test Item Value Reference Range Comments PHOSPHORUS (BEAKER) (test lbjt=014) 5.4 mg/dL 2.3-4.7 [id number] 06:40:00 Test Item Value Reference Range Comments MAGNESIUM (BEAKER) (test zsgq=816) 1.6 mg/dL 1.6-2.6 CALCIUM, [id number] 06:27:00 Test Item Value Reference Range Comments CALCIUM IONIZED (BEAKER) (test sxub=312) 0.99 mmol/L 1.12-1.27 PH, BLOOD (BEAKER) (test uozk=7911) 7.43 CBC W/PLT COUNT & AUTO [id number] 05:53:00 Test Item Value Reference Range Comments WHITE BLOOD CELL COUNT (BEAKER) (test olvz=006) 16.2 K/ L 3.5-10.5 RED BLOOD CELL COUNT (BEAKER) (test azxf=806) 2.38 M/ L 3.93-5.22 HEMOGLOBIN (BEAKER) (test incc=285) 7.0 GM/DL 11.2-15.7 HEMATOCRIT (BEAKER) (test wwxv=875) 22.2 % 34.1-44.9 MEAN CORPUSCULAR VOLUME (BEAKER) (test libj=992) 93.3 fL 79.4-94.8 MEAN CORPUSCULAR HEMOGLOBIN (BEAKER) (test 29.4 pg 25.6-32.2 ette=964) MEAN CORPUSCULAR HEMOGLOBIN CONC (BEAKER) (test 31.5 GM/DL 32.2-35.5 fzzf=987) RED CELL DISTRIBUTION WIDTH (BEAKER) (test 21.3 % 11.7-14.4 fwyq=168) PLATELET COUNT (BEAKER) (test liti=210) 390 K/CU MM 150-450 MEAN PLATELET VOLUME (BEAKER) (test ljcu=053) 11.8 fL 9.4-12.3 NUCLEATED RED BLOOD CELLS (BEAKER) (test 0 /100 WBC 0-0 pipa=488) NEUTROPHILS RELATIVE PERCENT (BEAKER) (test 58 % rnhl=167) LYMPHOCYTES RELATIVE PERCENT (BEAKER) (test 23 % avun=605) MONOCYTES RELATIVE PERCENT (BEAKER) (test 17 % hbyg=928) EOSINOPHILS RELATIVE PERCENT (BEAKER) (test 2 % lsms=476) BASOPHILS RELATIVE PERCENT (BEAKER) (test 0 % wyto=843) NEUTROPHILS ABSOLUTE COUNT (BEAKER) (test 9.31 K/ L 1.56-6.13 igxx=780) LYMPHOCYTES ABSOLUTE COUNT (BEAKER) (test 3.65 K/ L 1.18-3.74 ojcn=907) MONOCYTES ABSOLUTE COUNT (BEAKER) (test 2.70 K/ L 0.24-0.36 zduc=493) EOSINOPHILS ABSOLUTE COUNT (BEAKER) (test 0.36 K/ L 0.04-0.36 zvku=496) BASOPHILS ABSOLUTE COUNT (BEAKER) (test 0.04 K/ L 0.01-0.08 dcrl=753) IMMATURE GRANULOCYTES-RELATIVE PERCENT (BEAKER) 1 % 0-1 (test lyil=2620) BASIC METABOLIC [id number] 17:35:00 Test Item Value Reference Range Comments SODIUM (BEAKER) (test 133 meq/L 136-145 djvy=513) POTASSIUM (BEAKER) (test 5.4 meq/L 3.5-5.1 gnce=281) CHLORIDE (BEAKER) (test 99 meq/L 98-107 xkpq=745) CO2 (BEAKER) (test 26 meq/L 22-29 fexs=161) BLOOD UREA NITROGEN 23 mg/dL 7-21 (BEAKER) (test nmxh=709) CREATININE (BEAKER) (test 0.83 mg/dL 0.57-1.25 gfcc=816) GLUCOSE RANDOM (BEAKER) 94 mg/dL 70-105 (test uwwi=332) CALCIUM (BEAKER) (test 9.2 mg/dL 8.4-10.2 rhuh=125) EGFR (BEAKER) (test 93 mL/min/1.73 sq m ESTIMATED GFR IS NOT bbwq=9356) ACCURATE CREATININE CLEARANCE IN PREDICTING GLOMERULAR FILTRATION RATE. ESTIMATED GFR IS NOT APPLICABLE FOR DIALYSIS PATIENTS. [id number] 06:33:00 Test Item Value Reference Range Comments PHOSPHORUS (BEAKER) (test igvb=865) 5.3 mg/dL 2.3-4.7 [id number] 06:33:00 Test Item Value Reference Range Comments MAGNESIUM (BEAKER) (test xvon=869) 1.6 mg/dL 1.6-2.6 BASIC METABOLIC [id number] 06:33:00 Test Item Value Reference Range Comments SODIUM (BEAKER) (test 133 meq/L 136-145 jlbi=515) POTASSIUM (BEAKER) (test 5.2 meq/L 3.5-5.1 kzog=698) CHLORIDE (BEAKER) (test 97 meq/L 98-107 oxkp=892) CO2 (BEAKER) (test 29 meq/L 22-29 zrwy=728) BLOOD UREA NITROGEN 23 mg/dL 7-21 (BEAKER) (test kcfj=548) CREATININE (BEAKER) (test 0.77 mg/dL 0.57-1.25 oekg=033) GLUCOSE RANDOM (BEAKER) 92 mg/dL 70-105 (test gtsm=423) CALCIUM (BEAKER) (test 9.4 mg/dL 8.4-10.2 kcrc=942) EGFR (BEAKER) (test 102 mL/min/1.73 sq m ESTIMATED GFR IS NOT zqew=1835) ACCURATE CREATININE CLEARANCE IN PREDICTING GLOMERULAR FILTRATION RATE. ESTIMATED GFR IS NOT APPLICABLE FOR DIALYSIS PATIENTS. CALCIUM, [id number] 06:22:00 Test Item Value Reference Range Comments CALCIUM IONIZED (BEAKER) (test maom=334) 1.18 mmol/L 1.12-1.27 PH, BLOOD (BEAKER) (test utwc=3296) 7.32 B-TYPE NATRIURETIC FACTOR (BNP)2017-11-21 06:19:00 Test Item Value Reference Range Comments B-TYPE NATRIURETIC PEPTIDE (BEAKER) (test 120 pg/mL 0-100 cpdu=178) CBC W/PLT COUNT & AUTO [id number] 05:59:00 Test Item Value Reference Range Comments WHITE BLOOD CELL COUNT (BEAKER) (test gzeh=342) 17.4 K/ L 3.5-10.5 RED BLOOD CELL COUNT (BEAKER) (test uljv=481) 2.32 M/ L 3.93-5.22 HEMOGLOBIN (BEAKER) (test lrhk=884) 6.7 GM/DL 11.2-15.7 HEMATOCRIT (BEAKER) (test qxyo=795) 21.6 % 34.1-44.9 MEAN CORPUSCULAR VOLUME (BEAKER) (test jdxh=215) 93.1 fL 79.4-94.8 MEAN CORPUSCULAR HEMOGLOBIN (BEAKER) (test 28.9 pg 25.6-32.2 fmhk=500) MEAN CORPUSCULAR HEMOGLOBIN CONC (BEAKER) (test 31.0 GM/DL 32.2-35.5 rhky=749) RED CELL DISTRIBUTION WIDTH (BEAKER) (test 20.9 % 11.7-14.4 icoi=484) PLATELET COUNT (BEAKER) (test dvrp=369) 367 K/CU MM 150-450 MEAN PLATELET VOLUME (BEAKER) (test stjm=585) 12.1 fL 9.4-12.3 NUCLEATED RED BLOOD CELLS (BEAKER) (test 0 /100 WBC 0-0 gcva=496) NEUTROPHILS RELATIVE PERCENT (BEAKER) (test 58 % oejs=372) LYMPHOCYTES RELATIVE PERCENT (BEAKER) (test 23 % usla=355) MONOCYTES RELATIVE PERCENT (BEAKER) (test 16 % qtev=795) EOSINOPHILS RELATIVE PERCENT (BEAKER) (test 3 % irbs=798) BASOPHILS RELATIVE PERCENT (BEAKER) (test 1 % khhn=333) NEUTROPHILS ABSOLUTE COUNT (BEAKER) (test 10.09 K/ L 1.56-6.13 jcil=428) LYMPHOCYTES ABSOLUTE COUNT (BEAKER) (test 3.92 K/ L 1.18-3.74 tjqu=612) MONOCYTES ABSOLUTE COUNT (BEAKER) (test 2.71 K/ L 0.24-0.36 cgfz=474) EOSINOPHILS ABSOLUTE COUNT (BEAKER) (test 0.46 K/ L 0.04-0.36 ijpp=261) BASOPHILS ABSOLUTE COUNT (BEAKER) (test 0.08 K/ L 0.01-0.08 ilze=497) IMMATURE GRANULOCYTES-RELATIVE PERCENT (BEAKER) 1 % 0-1 (test lzcd=1579) BLOOD GAS, [id number] 07:22:00 Test Item Value Reference Range Comments PH VENOUS (BEAKER) (test oose=771) 7.34 7.32-7.42 PCO2 VENOUS (BEAKER) (test bhrj=865) 63 mmHg 41-51 PO2 VENOUS (BEAKER) (test twez=986) 133 mmHg 25-40 O2 SATURATION VENOUS (BEAKER) (test iiff=987) 98.4 % 40.0-70.0 HCO3 VENOUS (BEAKER) (test lmqg=178) 33 mmol/L 21-29 BASE EXCESS VENOUS (BEAKER) (test daoo=354) 6.6 mmol/L -2.0-3.0 PATIENT TEMPERATURE (BEAKER) (test rrdh=5002) 37.0 C FIO2 (BEAKER) (test wrve=6029) 21.0 % CALCIUM, [id number] 07:20:00 Test Item Value Reference Range Comments CALCIUM IONIZED (BEAKER) (test dmse=685) 1.10 mmol/L 1.12-1.27 PH, BLOOD (BEAKER) (test qxag=4235) 7.33 [id number] 07:18:00 Test Item Value Reference Range Comments PHOSPHORUS (BEAKER) (test vmoq=371) 4.8 mg/dL 2.3-4.7 [id number] 07:18:00 Test Item Value Reference Range Comments MAGNESIUM (BEAKER) (test vixt=351) 1.6 mg/dL 1.6-2.6 BASIC METABOLIC [id number] 07:18:00 Test Item Value Reference Range Comments SODIUM (BEAKER) (test 137 meq/L 136-145 rdwd=671) POTASSIUM (BEAKER) (test 4.8 meq/L 3.5-5.1 lrle=794) CHLORIDE (BEAKER) (test 99 meq/L 98-107 fxmw=969) CO2 (BEAKER) (test 31 meq/L 22-29 xidg=167) BLOOD UREA NITROGEN 20 mg/dL 7-21 (BEAKER) (test yvjg=814) CREATININE (BEAKER) (test 0.83 mg/dL 0.57-1.25 taro=881) GLUCOSE RANDOM (BEAKER) 117 mg/dL 70-105 (test jgvx=425) CALCIUM (BEAKER) (test 9.5 mg/dL 8.4-10.2 oivu=587) EGFR (BEAKER) (test 93 mL/min/1.73 sq m ESTIMATED GFR IS NOT okjn=6946) ACCURATE CREATININE CLEARANCE IN PREDICTING GLOMERULAR FILTRATION RATE. ESTIMATED GFR IS NOT APPLICABLE FOR DIALYSIS PATIENTS. CBC W/PLT COUNT & AUTO [id number] 07:14:00 Test Item Value Reference Range Comments WHITE BLOOD CELL COUNT (BEAKER) (test pafm=798) 16.7 K/ L 3.5-10.5 RED BLOOD CELL COUNT (BEAKER) (test etst=069) 2.39 M/ L 3.93-5.22 HEMOGLOBIN (BEAKER) (test qbgk=308) 6.9 GM/DL 11.2-15.7 HEMATOCRIT (BEAKER) (test osdr=159) 22.3 % 34.1-44.9 MEAN CORPUSCULAR VOLUME (BEAKER) (test qjvc=108) 93.3 fL 79.4-94.8 MEAN CORPUSCULAR HEMOGLOBIN (BEAKER) (test 28.9 pg 25.6-32.2 dhlr=756) MEAN CORPUSCULAR HEMOGLOBIN CONC (BEAKER) (test 30.9 GM/DL 32.2-35.5 qkut=904) RED CELL DISTRIBUTION WIDTH (BEAKER) (test 21.1 % 11.7-14.4 wzbi=356) PLATELET COUNT (BEAKER) (test intt=645) 344 K/CU MM 150-450 MEAN PLATELET VOLUME (BEAKER) (test qbsf=568) 11.7 fL 9.4-12.3 NUCLEATED RED BLOOD CELLS (BEAKER) (test 0 /100 WBC 0-0 nzyp=663) NEUTROPHILS RELATIVE PERCENT (BEAKER) (test 60 % pwqp=156) LYMPHOCYTES RELATIVE PERCENT (BEAKER) (test 23 % womd=317) MONOCYTES RELATIVE PERCENT (BEAKER) (test 14 % kmgm=227) EOSINOPHILS RELATIVE PERCENT (BEAKER) (test 3 % vfcv=884) BASOPHILS RELATIVE PERCENT (BEAKER) (test 0 % urye=120) NEUTROPHILS ABSOLUTE COUNT (BEAKER) (test 9.95 K/ L 1.56-6.13 tsbg=969) LYMPHOCYTES ABSOLUTE COUNT (BEAKER) (test 3.92 K/ L 1.18-3.74 hroi=096) MONOCYTES ABSOLUTE COUNT (BEAKER) (test 2.29 K/ L 0.24-0.36 nyar=099) EOSINOPHILS ABSOLUTE COUNT (BEAKER) (test 0.45 K/ L 0.04-0.36 mseg=592) BASOPHILS ABSOLUTE COUNT (BEAKER) (test 0.04 K/ L 0.01-0.08 smxl=033) IMMATURE GRANULOCYTES-RELATIVE PERCENT (BEAKER) 0 % 0-1 (test qebo=1385) [id number] 11:18:00 Test Item Value Reference Range Comments FERRITIN (BEAKER) (test hnjn=787) 011[address] ng/mL 5-275 [id number] 07:10:00 Test Item Value Reference Range Comments MAGNESIUM (BEAKER) (test exze=676) 2.0 mg/dL 1.6-2.6 BASIC METABOLIC [id number] 07:10:00 Test Item Value Reference Range Comments SODIUM (BEAKER) (test 137 meq/L 136-145 hpdh=739) POTASSIUM (BEAKER) (test 4.5 meq/L 3.5-5.1 lztg=204) CHLORIDE (BEAKER) (test 99 meq/L 98-107 czhn=958) CO2 (BEAKER) (test 35 meq/L 22-29 righ=771) BLOOD UREA NITROGEN 18 mg/dL 7-21 (BEAKER) (test rjlm=552) CREATININE (BEAKER) (test 0.78 mg/dL 0.57-1.25 ysek=466) GLUCOSE RANDOM (BEAKER) 102 mg/dL 70-105 (test kgcs=931) CALCIUM (BEAKER) (test 9.4 mg/dL 8.4-10.2 jnwt=624) EGFR (BEAKER) (test 100 mL/min/1.73 sq m ESTIMATED GFR IS NOT ersf=5622) ACCURATE CREATININE CLEARANCE IN PREDICTING GLOMERULAR FILTRATION RATE. ESTIMATED GFR IS NOT APPLICABLE FOR DIALYSIS PATIENTS. CBC (HEMOGRAM ONLY)2017-11-19 07:06:00 Test Item Value Reference Range Comments WHITE BLOOD CELL COUNT (BEAKER) (test mimn=509) 15.3 K/ L 3.5-10.5 RED BLOOD CELL COUNT (BEAKER) (test kzdf=297) 2.42 M/ L 3.93-5.22 HEMOGLOBIN (BEAKER) (test hlvz=805) 7.1 GM/DL 11.2-15.7 HEMATOCRIT (BEAKER) (test hhka=120) 22.5 % 34.1-44.9 MEAN CORPUSCULAR VOLUME (BEAKER) (test trps=886) 93.0 fL 79.4-94.8 MEAN CORPUSCULAR HEMOGLOBIN (BEAKER) (test 29.3 pg 25.6-32.2 wxea=966) MEAN CORPUSCULAR HEMOGLOBIN CONC (BEAKER) (test 31.6 GM/DL 32.2-35.5 qjhb=780) RED CELL DISTRIBUTION WIDTH (BEAKER) (test 20.9 % 11.7-14.4 nwfr=650) PLATELET COUNT (BEAKER) (test hzii=012) 324 K/CU MM 150-450 MEAN PLATELET VOLUME (BEAKER) (test kpmr=329) 11.8 fL 9.4-12.3 NUCLEATED RED BLOOD CELLS (BEAKER) (test 1 /100 WBC 0-0 tfyl=892) BLOOD [id number] 06:00:00 Test Item Value Reference Range Comments CULTURE (BEAKER) (test aagk=5226) No growth in 5 days ANTI-NUCLEAR ANTIBODY (AMARILYS)2017-11-17 14:21:00 Test Item Value Reference Range Comments ANTI-NUCLEAR ANTIBODY (AMARILYS) (BEAKER) (test Positive Negative ceiy=624) AMARILYS TITER AND [id number] 14:21:00 Test Item Value Reference Range Comments AMARILYS TITER (BEAKER) (test :160 wlcr=8588) AMARILYS PATTERN (BEAKER) (test Multiple nuclear dots pattern ljzf=3266) [id number] 07:16:00 Test Item Value Reference Range Comments PHOSPHORUS (BEAKER) (test rsyp=916) 4.5 mg/dL 2.3-4.7 [id number] 07:16:00 Test Item Value Reference Range Comments MAGNESIUM (BEAKER) (test vrmy=333) 1.4 mg/dL 1.6-2.6 BASIC METABOLIC [id number] 07:16:00 Test Item Value Reference Range Comments SODIUM (BEAKER) (test 141 meq/L 136-145 nicn=348) POTASSIUM (BEAKER) (test 4.2 meq/L 3.5-5.1 fgca=503) CHLORIDE (BEAKER) (test 98 meq/L 98-107 gyuu=489) CO2 (BEAKER) (test 34 meq/L 22-29 xegy=740) BLOOD UREA NITROGEN 21 mg/dL 7-21 (BEAKER) (test vbex=077) CREATININE (BEAKER) (test 0.85 mg/dL 0.57-1.25 olry=744) GLUCOSE RANDOM (BEAKER) 98 mg/dL 70-105 (test pvnl=648) CALCIUM (BEAKER) (test 9.2 mg/dL 8.4-10.2 isru=870) EGFR (BEAKER) (test 91 mL/min/1.73 sq m ESTIMATED GFR IS NOT ilnj=6670) ACCURATE CREATININE CLEARANCE IN PREDICTING GLOMERULAR FILTRATION RATE. ESTIMATED GFR IS NOT APPLICABLE FOR DIALYSIS PATIENTS. HEPATIC FUNCTION [id number] 07:16:00 Test Item Value Reference Range Comments TOTAL PROTEIN (BEAKER) (test sfxr=860) 8.3 gm/dL 6.0-8.3 ALBUMIN (BEAKER) (test ivth=1794) 3.0 g/dL 3.5-5.0 BILIRUBIN TOTAL (BEAKER) (test nsul=466) 1.3 mg/dL 0.2-1.2 BILIRUBIN DIRECT (BEAKER) (test qulk=530) 0.7 mg/dL 0.1-0.5 ALKALINE PHOSPHATASE (BEAKER) (test sono=611) 217 U/L 40-150 AST (SGOT) (BEAKER) (test zjmq=150) 106 U/L 5-34 ALT (SGPT) (BEAKER) (test lajl=046) 46 U/L 6-55 CALCIUM, [id number] 06:50:00 Test Item Value Reference Range Comments CALCIUM IONIZED (BEAKER) (test fliv=988) 1.11 mmol/L 1.12-1.27 PH, BLOOD (BEAKER) (test azjy=2657) 7.34 CBC W/PLT COUNT & AUTO [id number] 06:09:00 Test Item Value Reference Range Comments WHITE BLOOD CELL COUNT (BEAKER) (test lpbz=013) 16.8 K/ L 3.5-10.5 RED BLOOD CELL COUNT (BEAKER) (test thrw=025) 2.53 M/ L 3.93-5.22 HEMOGLOBIN (BEAKER) (test yywm=222) 7.3 GM/DL 11.2-15.7 HEMATOCRIT (BEAKER) (test dpcz=732) 23.3 % 34.1-44.9 MEAN CORPUSCULAR VOLUME (BEAKER) (test pfiy=627) 92.1 fL 79.4-94.8 MEAN CORPUSCULAR HEMOGLOBIN (BEAKER) (test 28.9 pg 25.6-32.2 wvib=546) MEAN CORPUSCULAR HEMOGLOBIN CONC (BEAKER) (test 31.3 GM/DL 32.2-35.5 eiba=718) RED CELL DISTRIBUTION WIDTH (BEAKER) (test 20.2 % 11.7-14.4 fcay=735) PLATELET COUNT (BEAKER) (test vtwp=752) 305 K/CU MM 150-450 MEAN PLATELET VOLUME (BEAKER) (test csei=279) 12.0 fL 9.4-12.3 NUCLEATED RED BLOOD CELLS (BEAKER) (test 1 /100 WBC 0-0 xbcm=829) NEUTROPHILS RELATIVE PERCENT (BEAKER) (test 66 % xohh=682) LYMPHOCYTES RELATIVE PERCENT (BEAKER) (test 20 % lxvl=246) MONOCYTES RELATIVE PERCENT (BEAKER) (test 11 % ylmo=114) EOSINOPHILS RELATIVE PERCENT (BEAKER) (test 3 % utqk=078) BASOPHILS RELATIVE PERCENT (BEAKER) (test 0 % njlz=175) NEUTROPHILS ABSOLUTE COUNT (BEAKER) (test 10.99 K/ L 1.56-6.13 mimi=593) LYMPHOCYTES ABSOLUTE COUNT (BEAKER) (test 3.29 K/ L 1.18-3.74 nzmq=237) MONOCYTES ABSOLUTE COUNT (BEAKER) (test 1.89 K/ L 0.24-0.36 lirg=907) EOSINOPHILS ABSOLUTE COUNT (BEAKER) (test 0.48 K/ L 0.04-0.36 kbrc=862) BASOPHILS ABSOLUTE COUNT (BEAKER) (test 0.05 K/ L 0.01-0.08 ktjc=634) IMMATURE GRANULOCYTES-RELATIVE PERCENT (BEAKER) 0 % 0-1 (test tcfx=3308) HEPATITIS PANEL, [id number] 14:32:00 Test Item Value Reference Range Comments HEPATITIS A IGM ANTIBODY (BEAKER) (test Nonreactive Nonreactive jijs=545) HEPATITIS B CORE IGM ANTIBODY (BEAKER) (test Nonreactive Nonreactive uzij=884) HEPATITIS C ANTIBODY (BEAKER) (test wibb=093) Nonreactive Nonreactive HEPATITIS B SURFACE ANTIGEN (2) (BEAKER) (test Nonreactive Nonreactive tsdj=4478) RAD, MANDIBLE, LESS THAN 4 [id number] 12:28:00Reason for exam:->fever, dental cariesFINAL REPORT Mandible [...] air cells are well aerated. Signed: [facility] Verified Date/Time: 11/16/2017 12:28:43 Reading Location: [facility] Radiology Reading Room RAD, CHEST, 2 [id number] 10:47:00Reason for exam:-> fever, chest painFINAL REPORT [...] No pneumothorax is seen. Signed: [facility] Verified Date/Time: 11/16/2017 10:47:19 Reading Location: [facility] Reading Room URINE [id number] 09:53:00 Test Item Value Reference Range Comments CULTURE (BEAKER) (test zzlm=0063) >100,000 col/mL skin valentino CBC W/PLT COUNT & AUTO [id number] 09:20:00 Test Item Value Reference Range Comments WHITE BLOOD CELL COUNT (BEAKER) (test avhm=285) 18.6 K/ L 3.5-10.5 RED BLOOD CELL COUNT (BEAKER) (test vhso=406) 2.63 M/ L 3.93-5.22 HEMOGLOBIN (BEAKER) (test cdir=518) 7.6 GM/DL 11.2-15.7 HEMATOCRIT (BEAKER) (test xeux=210) 23.8 % 34.1-44.9 MEAN CORPUSCULAR VOLUME (BEAKER) (test vbdf=691) 90.5 fL 79.4-94.8 MEAN CORPUSCULAR HEMOGLOBIN (BEAKER) (test 28.9 pg 25.6-32.2 vlze=622) MEAN CORPUSCULAR HEMOGLOBIN CONC (BEAKER) (test 31.9 GM/DL 32.2-35.5 pbex=213) RED CELL DISTRIBUTION WIDTH (BEAKER) (test 19.9 % 11.7-14.4 ydaj=689) PLATELET COUNT (BEAKER) (test yvjh=848) 330 K/CU MM 150-450 MEAN PLATELET VOLUME (BEAKER) (test fgzi=257) 11.9 fL 9.4-12.3 NUCLEATED RED BLOOD CELLS (BEAKER) (test 1 /100 WBC 0-0 hooh=045) NEUTROPHILS RELATIVE PERCENT (BEAKER) (test 65 % jsxu=376) LYMPHOCYTES RELATIVE PERCENT (BEAKER) (test 22 % egai=723) MONOCYTES RELATIVE PERCENT (BEAKER) (test 10 % fzqz=568) EOSINOPHILS RELATIVE PERCENT (BEAKER) (test 2 % ysde=844) BASOPHILS RELATIVE PERCENT (BEAKER) (test 0 % knpv=194) NEUTROPHILS ABSOLUTE COUNT (BEAKER) (test 12.09 K/ L 1.56-6.13 urro=167) LYMPHOCYTES ABSOLUTE COUNT (BEAKER) (test 4.02 K/ L 1.18-3.74 cpqt=507) MONOCYTES ABSOLUTE COUNT (BEAKER) (test 1.90 K/ L 0.24-0.36 ukfw=171) EOSINOPHILS ABSOLUTE COUNT (BEAKER) (test 0.41 K/ L 0.04-0.36 toxh=075) BASOPHILS ABSOLUTE COUNT (BEAKER) (test 0.05 K/ L 0.01-0.08 azog=505) IMMATURE GRANULOCYTES-RELATIVE PERCENT (BEAKER) 0 % 0-1 (test bncr=3268) (MANUAL DIFFERENTIAL)2017-11-16 09:20:00 Test Item Value Reference Range Comments TOTAL COUNTED (BEAKER) (test vxwg=8154) WBC MORPHOLOGY (BEAKER) (test wxzq=266) Normal PLT MORPHOLOGY (BEAKER) (test wwqg=488) Normal POLYCHROMATOPHILLIC RBCS(BEAKER) (test lgnk=353) 1+ few SICKLE CELLS (BEAKER) (test luri=216) 1+ few TARGET CELLS (BEAKER) (test jyxi=319) 2+ moderate CALCIUM, [id number] 07:28:00 Test Item Value Reference Range Comments CALCIUM IONIZED (BEAKER) (test czin=111) 0.97 mmol/L 1.12-1.27 PH, BLOOD (BEAKER) (test jxfl=3305) 7.45 [id number] 05:48:00 Test Item Value Reference Range Comments PHOSPHORUS (BEAKER) (test sefv=572) 4.8 mg/dL 2.3-4.7 [id number] 05:48:00 Test Item Value Reference Range Comments MAGNESIUM (BEAKER) (test cyia=156) 1.6 mg/dL 1.6-2.6 BASIC METABOLIC [id number] 05:48:00 Test Item Value Reference Range Comments SODIUM (BEAKER) (test 139 meq/L 136-145 xfhz=527) POTASSIUM (BEAKER) (test 3.9 meq/L 3.5-5.1 giad=765) CHLORIDE (BEAKER) (test 98 meq/L 98-107 dqjr=486) CO2 (BEAKER) (test 32 meq/L 22-29 brvz=086) BLOOD UREA NITROGEN 23 mg/dL 7-21 (BEAKER) (test vsqj=170) CREATININE (BEAKER) (test 1.10 mg/dL 0.57-1.25 trkw=402) GLUCOSE RANDOM (BEAKER) 115 mg/dL 70-105 (test esuh=829) CALCIUM (BEAKER) (test 9.0 mg/dL 8.4-10.2 srid=868) EGFR (BEAKER) (test 67 mL/min/1.73 sq m ESTIMATED GFR IS NOT mxyo=8780) ACCURATE CREATININE CLEARANCE IN PREDICTING GLOMERULAR FILTRATION RATE. ESTIMATED GFR IS NOT APPLICABLE FOR DIALYSIS PATIENTS. URINALYSIS W/ [id number] 19:14:00 Test Item Value Reference Range Comments COLOR (BEAKER) (test sfvn=022) Yellow CLARITY (BEAKER) (test ebkt=348) Clear SPECIFIC GRAVITY UA (BEAKER) (test vdjk=768) 1.006 1.001-1.035 PH UA (BEAKER) (test gfjc=846) 7.5 5.0-8.0 PROTEIN UA (BEAKER) (test crzm=910) Negative Negative GLUCOSE UA (BEAKER) (test kuda=308) Negative Negative KETONES UA (BEAKER) (test gpgw=297) Negative Negative BILIRUBIN UA (BEAKER) (test nkzv=748) Negative Negative BLOOD UA (BEAKER) (test flqp=518) Trace Negative NITRITE UA (BEAKER) (test azxz=219) Negative Negative LEUKOCYTE ESTERASE UA (BEAKER) (test maas=252) Small Negative UROBILINOGEN UA (BEAKER) (test axbu=212) 0.2 mg/dL 0.2-1.0 RBC UA (BEAKER) (test mkuq=482) < /HPF WBC UA (BEAKER) (test mral=789) 7 /HPF BACTERIA (BEAKER) (test ptcs=061) Rare SQUAMOUS EPITHELIAL (BEAKER) (test uuef=384) 1 /HPF SOURCE(BEAKER) (test wkkd=5251) Urine, Voided [id number] 13:26:00 Test Item Value Reference Range Comments LIPASE (BEAKER) (test xoal=491) 95 U/L 8-78 RAD, ABDOMEN/KUB, 1 VIEW [id number] 12:43:00Reason for exam:->abdominal painFINAL REPORT Abdomen one [...] MDReport Verified Date/Time: 11/15/2017 12:43:04 Reading Location: [facility] Radiology Reading Room CBC W/PLT COUNT & AUTO [id number] 10:00:00 Test Item Value Reference Range Comments WHITE BLOOD CELL COUNT (BEAKER) (test atct=940) 18.8 K/ L 3.5-10.5 RED BLOOD CELL COUNT (BEAKER) (test vusa=945) 1.83 M/ L 3.93-5.22 HEMOGLOBIN (BEAKER) (test aeej=906) 5.4 GM/DL 11.2-15.7 HEMATOCRIT (BEAKER) (test ifsm=387) 16.7 % 34.1-44.9 MEAN CORPUSCULAR VOLUME (BEAKER) (test flcl=482) 91.3 fL 79.4-94.8 MEAN CORPUSCULAR HEMOGLOBIN (BEAKER) (test 29.5 pg 25.6-32.2 ihpm=253) MEAN CORPUSCULAR HEMOGLOBIN CONC (BEAKER) (test 32.3 GM/DL 32.2-35.5 dlux=282) RED CELL DISTRIBUTION WIDTH (BEAKER) (test 21.7 % 11.7-14.4 klvr=703) PLATELET COUNT (BEAKER) (test thvn=132) 340 K/CU MM 150-450 MEAN PLATELET VOLUME (BEAKER) (test qkrj=608) 11.3 fL 9.4-12.3 NUCLEATED RED BLOOD CELLS (BEAKER) (test 2 /100 WBC 0-0 jgte=416) NEUTROPHILS RELATIVE PERCENT (BEAKER) (test 65 % fpyy=621) LYMPHOCYTES RELATIVE PERCENT (BEAKER) (test 23 % hjzt=562) MONOCYTES RELATIVE PERCENT (BEAKER) (test 10 % ftpr=286) EOSINOPHILS RELATIVE PERCENT (BEAKER) (test 1 % lcsl=979) BASOPHILS RELATIVE PERCENT (BEAKER) (test 0 % tmnl=297) NEUTROPHILS ABSOLUTE COUNT (BEAKER) (test 12.25 K/ L 1.56-6.13 dlfk=768) LYMPHOCYTES ABSOLUTE COUNT (BEAKER) (test 4.31 K/ L 1.18-3.74 dcsb=065) MONOCYTES ABSOLUTE COUNT (BEAKER) (test 1.88 K/ L 0.24-0.36 xtoi=667) EOSINOPHILS ABSOLUTE COUNT (BEAKER) (test 0.26 K/ L 0.04-0.36 cbrp=220) BASOPHILS ABSOLUTE COUNT (BEAKER) (test 0.02 K/ L 0.01-0.08 nbhe=720) IMMATURE GRANULOCYTES-RELATIVE PERCENT (BEAKER) 1 % 0-1 (test oqkf=0977) (MANUAL DIFFERENTIAL)2017-11-15 10:00:00 Test Item Value Reference Range Comments TOTAL COUNTED (BEAKER) (test ueek=4757) ATYPICAL LYMPHS(BEAKER) (test swan=4350) Present LARGE PLT(BEAKER) (test fsdy=1032) Present HYPOCHROMIA (BEAKER) (test bpjf=402) 1+ few POLYCHROMATOPHILLIC RBCS(BEAKER) (test scsh=914) 1+ few SICKLE CELLS (BEAKER) (test bnyq=617) 1+ few TARGET CELLS (BEAKER) (test ptxk=608) 1+ few U/S, ENDOVAGINAL (EV)2017-11-15 09:03:00Reason for [...] MDReport Verified Date/Time: 2017 09:03:15 Reading Location: [address] Ultrasound Reading Room CBC W/ PLT COUNT & AUTO [id number] 08:32:00 Test Item Value Reference Range Comments WHITE BLOOD CELL COUNT (BEAKER) (test zjdo=168) 19.8 K/ L 3.5-10.5 RED BLOOD CELL COUNT (BEAKER) (test syta=106) 1.89 M/ L 3.93-5.22 HEMOGLOBIN (BEAKER) (test wjys=759) 5.6 GM/DL 11.2-15.7 HEMATOCRIT (BEAKER) (test ozwo=473) 17.2 % 34.1-44.9 MEAN CORPUSCULAR VOLUME (BEAKER) (test pigw=336) 91.0 fL 79.4-94.8 MEAN CORPUSCULAR HEMOGLOBIN (BEAKER) (test 29.6 pg 25.6-32.2 hkqs=705) MEAN CORPUSCULAR HEMOGLOBIN CONC (BEAKER) (test 32.6 GM/DL 32.2-35.5 xhwn=783) RED CELL DISTRIBUTION WIDTH (BEAKER) (test 21.4 % 11.7-14.4 zxio=044) PLATELET COUNT (BEAKER) (test nszv=601) 366 K/CU MM 150-450 MEAN PLATELET VOLUME (BEAKER) (test usrg=657) 11.6 fL 9.4-12.3 NUCLEATED RED BLOOD CELLS (BEAKER) (test 2 /100 WBC 0-0 mxui=566) NEUTROPHILS RELATIVE PERCENT (BEAKER) (test 70 % brrb=657) LYMPHOCYTES RELATIVE PERCENT (BEAKER) (test 18 % nbwe=850) MONOCYTES RELATIVE PERCENT (BEAKER) (test 10 % tbmy=034) EOSINOPHILS RELATIVE PERCENT (BEAKER) (test 1 % otjb=186) BASOPHILS RELATIVE PERCENT (BEAKER) (test 0 % ipeb=044) NEUTROPHILS ABSOLUTE COUNT (BEAKER) (test 13.93 K/ L 1.56-6.13 slko=768) LYMPHOCYTES ABSOLUTE COUNT (BEAKER) (test 3.51 K/ L 1.18-3.74 gagt=043) MONOCYTES ABSOLUTE COUNT (BEAKER) (test 2.03 K/ L 0.24-0.36 knzh=583) EOSINOPHILS ABSOLUTE COUNT (BEAKER) (test 0.23 K/ L 0.04-0.36 cnjs=333) BASOPHILS ABSOLUTE COUNT (BEAKER) (test 0.02 K/ L 0.01-0.08 timk=326) IMMATURE GRANULOCYTES-RELATIVE PERCENT (BEAKER) 0 % 0-1 (test jdlz=6305) [id number] 06:16:00 Test Item Value Reference Range Comments PHOSPHORUS (BEAKER) (test vkuy=246) 4.6 mg/dL 2.3-4.7 [id number] 06:16:00 Test Item Value Reference Range Comments MAGNESIUM (BEAKER) (test bswr=057) 1.6 mg/dL 1.6-2.6 BASIC METABOLIC [id number] 06:16:00 Test Item Value Reference Range Comments SODIUM (BEAKER) (test 139 meq/L 136-145 qtsn=397) POTASSIUM (BEAKER) (test 3.9 meq/L 3.5-5.1 emdl=122) CHLORIDE (BEAKER) (test 97 meq/L 98-107 xhoh=886) CO2 (BEAKER) (test 33 meq/L 22-29 kaok=783) BLOOD UREA NITROGEN 24 mg/dL 7-21 (BEAKER) (test goyv=301) CREATININE (BEAKER) (test 1.15 mg/dL 0.57-1.25 ptqj=060) GLUCOSE RANDOM (BEAKER) 104 mg/dL 70-105 (test bdii=072) CALCIUM (BEAKER) (test 9.1 mg/dL 8.4-10.2 blmm=943) EGFR (BEAKER) (test 64 mL/min/1.73 sq m ESTIMATED GFR IS NOT hvzf=8926) ACCURATE CREATININE CLEARANCE IN PREDICTING GLOMERULAR FILTRATION RATE. ESTIMATED GFR IS NOT APPLICABLE FOR DIALYSIS PATIENTS. HEPATIC FUNCTION [id number] 06:16:00 Test Item Value Reference Range Comments TOTAL PROTEIN (BEAKER) (test rcgq=647) 8.2 gm/dL 6.0-8.3 ALBUMIN (BEAKER) (test kwel=1853) 2.9 g/dL 3.5-5.0 BILIRUBIN TOTAL (BEAKER) (test ivmz=695) 1.1 mg/dL 0.2-1.2 BILIRUBIN DIRECT (BEAKER) (test qziw=342) 0.5 mg/dL 0.1-0.5 ALKALINE PHOSPHATASE (BEAKER) (test jxoo=850) 164 U/L 40-150 AST (SGOT) (BEAKER) (test nnda=618) 76 U/L 5-34 ALT (SGPT) (BEAKER) (test xazk=789) 34 U/L 6-55 CALCIUM, [id number] 06:00:00 Test Item Value Reference Range Comments CALCIUM IONIZED (BEAKER) (test adaw=269) 0.93 mmol/L 1.12-1.27 PH, BLOOD (BEAKER) (test flbj=8558) 7.52 URINALYSIS W/ [id number] 18:32:00 Test Item Value Reference Range Comments COLOR (BEAKER) (test bpmn=647) Light Yellow CLARITY (BEAKER) (test dljr=181) Clear SPECIFIC GRAVITY UA (BEAKER) (test dxwy=811) 1.006 1.001-1.035 PH UA (BEAKER) (test cazc=921) 7.0 5.0-8.0 PROTEIN UA (BEAKER) (test xqcc=992) Negative Negative GLUCOSE UA (BEAKER) (test fywx=641) Negative Negative KETONES UA (BEAKER) (test csac=832) Negative Negative BILIRUBIN UA (BEAKER) (test wsdd=499) Negative Negative BLOOD UA (BEAKER) (test qckt=931) Trace Negative NITRITE UA (BEAKER) (test nfgi=735) Negative Negative LEUKOCYTE ESTERASE UA (BEAKER) (test txot=337) Small Negative UROBILINOGEN UA (BEAKER) (test gams=111) 0.2 mg/dL 0.2-1.0 RBC UA (BEAKER) (test inda=407) 1 /HPF WBC UA (BEAKER) (test oexa=532) 7 /HPF BACTERIA (BEAKER) (test mzxu=066) Rare MUCUS (BEAKER) (test zegi=8539) Rare SQUAMOUS EPITHELIAL (BEAKER) (test pszn=451) 4 /HPF SOURCE(BEAKER) (test yooj=7658) Urine, Voided CALCIUM, [id number] 07:19:00 Test Item Value Reference Range Comments CALCIUM IONIZED (BEAKER) (test sxwi=602) 1.03 mmol/L 1.12-1.27 PH, BLOOD (BEAKER) (test zqea=4890) 7.40 CBC W/PLT COUNT & AUTO [id number] 06:26:00 Test Item Value Reference Range Comments WHITE BLOOD CELL COUNT (BEAKER) (test ovac=122) 18.5 K/ L 3.5-10.5 RED BLOOD CELL COUNT (BEAKER) (test zztu=311) 2.02 M/ L 3.93-5.22 HEMOGLOBIN (BEAKER) (test qayj=150) 6.0 GM/DL 11.2-15.7 HEMATOCRIT (BEAKER) (test jtbg=334) 18.5 % 34.1-44.9 MEAN CORPUSCULAR VOLUME (BEAKER) (test mkes=879) 91.6 fL 79.4-94.8 MEAN CORPUSCULAR HEMOGLOBIN (BEAKER) (test 29.7 pg 25.6-32.2 vwsy=474) MEAN CORPUSCULAR HEMOGLOBIN CONC (BEAKER) (test 32.4 GM/DL 32.2-35.5 vhku=396) RED CELL DISTRIBUTION WIDTH (BEAKER) (test 21.9 % 11.7-14.4 rgrj=359) PLATELET COUNT (BEAKER) (test qqrg=845) 337 K/CU MM 150-450 MEAN PLATELET VOLUME (BEAKER) (test hdgr=215) 11.7 fL 9.4-12.3 NUCLEATED RED BLOOD CELLS (BEAKER) (test 4 /100 WBC 0-0 aidt=635) NEUTROPHILS RELATIVE PERCENT (BEAKER) (test 76 % dqva=328) LYMPHOCYTES RELATIVE PERCENT (BEAKER) (test 16 % gbbz=902) MONOCYTES RELATIVE PERCENT (BEAKER) (test 6 % lzex=398) EOSINOPHILS RELATIVE PERCENT (BEAKER) (test 1 % cnqt=304) BASOPHILS RELATIVE PERCENT (BEAKER) (test 0 % uesa=809) NEUTROPHILS ABSOLUTE COUNT (BEAKER) (test 13.98 K/ L 1.56-6.13 uwdu=375) LYMPHOCYTES ABSOLUTE COUNT (BEAKER) (test 3.02 K/ L 1.18-3.74 kglq=183) MONOCYTES ABSOLUTE COUNT (BEAKER) (test 1.13 K/ L 0.24-0.36 sxof=299) EOSINOPHILS ABSOLUTE COUNT (BEAKER) (test 0.09 K/ L 0.04-0.36 ncmb=780) BASOPHILS ABSOLUTE COUNT (BEAKER) (test 0.05 K/ L 0.01-0.08 shey=241) IMMATURE GRANULOCYTES-RELATIVE PERCENT (BEAKER) 1 % 0-1 (test izqn=3775) [id number] 06:21:00 Test Item Value Reference Range Comments PHOSPHORUS (BEAKER) (test qkbj=601) 4.3 mg/dL 2.3-4.7 [id number] 06:21:00 Test Item Value Reference Range Comments MAGNESIUM (BEAKER) (test otcn=417) 2.1 mg/dL 1.6-2.6 BASIC METABOLIC [id number] 06:21:00 Test Item Value Reference Range Comments SODIUM (BEAKER) (test 139 meq/L 136-145 qycf=242) POTASSIUM (BEAKER) (test 4.0 meq/L 3.5-5.1 byhe=712) CHLORIDE (BEAKER) (test 99 meq/L 98-107 nouh=457) CO2 (BEAKER) (test 31 meq/L 22-29 wuzs=652) BLOOD UREA NITROGEN 23 mg/dL 7-21 (BEAKER) (test wyhz=809) CREATININE (BEAKER) (test 1.29 mg/dL 0.57-1.25 lzrg=789) GLUCOSE RANDOM (BEAKER) 116 mg/dL 70-105 (test hvaf=885) CALCIUM (BEAKER) (test 8.8 mg/dL 8.4-10.2 hwyr=382) EGFR (BEAKER) (test 56 mL/min/1.73 sq m ESTIMATED GFR IS NOT kqao=1773) ACCURATE CREATININE CLEARANCE IN PREDICTING GLOMERULAR FILTRATION RATE. ESTIMATED GFR IS NOT APPLICABLE FOR DIALYSIS PATIENTS. B-TYPE NATRIURETIC FACTOR (BNP)2017-11-13 07:27:00 Test Item Value Reference Range Comments B-TYPE NATRIURETIC PEPTIDE (BEAKER) (test 166 pg/mL 0-100 ytoy=159) [id number] 07:26:00 Test Item Value Reference Range Comments PHOSPHORUS (BEAKER) (test tyyz=480) 4.6 mg/dL 2.3-4.7 [id number] 07:26:00 Test Item Value Reference Range Comments MAGNESIUM (BEAKER) (test gijz=061) 1.6 mg/dL 1.6-2.6 BASIC METABOLIC [id number] 07:26:00 Test Item Value Reference Range Comments SODIUM (BEAKER) (test 139 meq/L 136-145 ttpa=980) POTASSIUM (BEAKER) (test 3.5 meq/L 3.5-5.1 rhes=622) CHLORIDE (BEAKER) (test 101 meq/L 98-107 kraq=432) CO2 (BEAKER) (test 32 meq/L 22-29 szkr=647) BLOOD UREA NITROGEN 14 mg/dL 7-21 (BEAKER) (test ywek=137) CREATININE (BEAKER) (test 1.09 mg/dL 0.57-1.25 asry=291) GLUCOSE RANDOM (BEAKER) 92 mg/dL 70-105 (test qlbf=846) CALCIUM (BEAKER) (test 8.5 mg/dL 8.4-10.2 hszf=957) EGFR (BEAKER) (test 68 mL/min/1.73 sq m ESTIMATED GFR IS NOT djrc=3013) ACCURATE CREATININE CLEARANCE IN PREDICTING GLOMERULAR FILTRATION RATE. ESTIMATED GFR IS NOT APPLICABLE FOR DIALYSIS PATIENTS. CBC W/PLT COUNT & AUTO [id number] 07:23:00 Test Item Value Reference Range Comments WHITE BLOOD CELL COUNT (BEAKER) (test abbi=681) 18.4 K/ L 3.5-10.5 RED BLOOD CELL COUNT (BEAKER) (test wybz=580) 2.03 M/ L 3.93-5.22 HEMOGLOBIN (BEAKER) (test xudh=480) 6.0 GM/DL 11.2-15.7 HEMATOCRIT (BEAKER) (test brqt=990) 18.8 % 34.1-44.9 MEAN CORPUSCULAR VOLUME (BEAKER) (test jxlf=335) 92.6 fL 79.4-94.8 MEAN CORPUSCULAR HEMOGLOBIN (BEAKER) (test 29.6 pg 25.6-32.2 eroy=758) MEAN CORPUSCULAR HEMOGLOBIN CONC (BEAKER) (test 31.9 GM/DL 32.2-35.5 lddg=275) RED CELL DISTRIBUTION WIDTH (BEAKER) (test 22.9 % 11.7-14.4 kfyn=821) PLATELET COUNT (BEAKER) (test ojxo=400) 302 K/CU MM 150-450 MEAN PLATELET VOLUME (BEAKER) (test xxvl=109) 11.3 fL 9.4-12.3 NUCLEATED RED BLOOD CELLS (BEAKER) (test 7 /100 WBC 0-0 iodo=550) NEUTROPHILS RELATIVE PERCENT (BEAKER) (test 74 % isph=592) LYMPHOCYTES RELATIVE PERCENT (BEAKER) (test 18 % tvmh=725) MONOCYTES RELATIVE PERCENT (BEAKER) (test 7 % wbpc=482) EOSINOPHILS RELATIVE PERCENT (BEAKER) (test 0 % azqj=368) BASOPHILS RELATIVE PERCENT (BEAKER) (test 0 % axkj=535) NEUTROPHILS ABSOLUTE COUNT (BEAKER) (test 13.58 K/ L 1.56-6.13 smyd=787) LYMPHOCYTES ABSOLUTE COUNT (BEAKER) (test 3.24 K/ L 1.18-3.74 zydp=887) MONOCYTES ABSOLUTE COUNT (BEAKER) (test 1.23 K/ L 0.24-0.36 rgfa=307) EOSINOPHILS ABSOLUTE COUNT (BEAKER) (test 0.07 K/ L 0.04-0.36 ozyn=719) BASOPHILS ABSOLUTE COUNT (BEAKER) (test 0.05 K/ L 0.01-0.08 lzbx=483) IMMATURE GRANULOCYTES-RELATIVE PERCENT (BEAKER) 1 % 0-1 (test ajpa=1858) CALCIUM, [id number] 07:08:00 Test Item Value Reference Range Comments CALCIUM IONIZED (BEAKER) (test ilrk=725) 1.03 mmol/L 1.12-1.27 PH, BLOOD (BEAKER) (test wsle=2094) 7.38 CBC W/PLT COUNT & AUTO [id number] 08:23:00 Test Item Value Reference Range Comments WHITE BLOOD CELL COUNT (BEAKER) (test naez=111) 20.4 K/ L 3.5-10.5 RED BLOOD CELL COUNT (BEAKER) (test xyod=998) 2.08 M/ L 3.93-5.22 HEMOGLOBIN (BEAKER) (test ubvg=668) 6.4 GM/DL 11.2-15.7 HEMATOCRIT (BEAKER) (test aazi=870) 19.7 % 34.1-44.9 MEAN CORPUSCULAR VOLUME (BEAKER) (test tveo=309) 94.7 fL 79.4-94.8 MEAN CORPUSCULAR HEMOGLOBIN (BEAKER) (test 30.8 pg 25.6-32.2 snwh=288) MEAN CORPUSCULAR HEMOGLOBIN CONC (BEAKER) (test 32.5 GM/DL 32.2-35.5 hsed=485) RED CELL DISTRIBUTION WIDTH (BEAKER) (test 24.3 % 11.7-14.4 winf=792) PLATELET COUNT (BEAKER) (test negg=104) 290 K/CU MM 150-450 MEAN PLATELET VOLUME (BEAKER) (test lqzf=659) 11.5 fL 9.4-12.3 NUCLEATED RED BLOOD CELLS (BEAKER) (test 19 /100 WBC 0-0 wacz=342) NEUTROPHILS RELATIVE PERCENT (BEAKER) (test 75 % enxe=565) LYMPHOCYTES RELATIVE PERCENT (BEAKER) (test 16 % wjek=435) MONOCYTES RELATIVE PERCENT (BEAKER) (test 8 % nsrp=132) EOSINOPHILS RELATIVE PERCENT (BEAKER) (test 0 % ctpv=921) BASOPHILS RELATIVE PERCENT (BEAKER) (test 0 % vqmd=401) NEUTROPHILS ABSOLUTE COUNT (BEAKER) (test 15.32 K/ L 1.56-6.13 wqho=474) LYMPHOCYTES ABSOLUTE COUNT (BEAKER) (test 3.24 K/ L 1.18-3.74 exau=688) MONOCYTES ABSOLUTE COUNT (BEAKER) (test 1.61 K/ L 0.24-0.36 czme=586) EOSINOPHILS ABSOLUTE COUNT (BEAKER) (test 0.05 K/ L 0.04-0.36 iied=880) BASOPHILS ABSOLUTE COUNT (BEAKER) (test 0.04 K/ L 0.01-0.08 zesy=270) IMMATURE GRANULOCYTES-RELATIVE PERCENT (BEAKER) 0 % 0-1 (test hwxb=6992) (MANUAL DIFFERENTIAL)2017-11-12 08:23:00 Test Item Value Reference Range Comments TOTAL COUNTED (BEAKER) (test vtnw=0169) WBC MORPHOLOGY (BEAKER) (test hlfw=608) Normal LARGE PLT(BEAKER) (test ejkt=5296) Present HYPOCHROMIA (BEAKER) (test evmw=679) 1+ few POLYCHROMATOPHILLIC RBCS(BEAKER) (test hnnp=942) 1+ few SICKLE CELLS (BEAKER) (test ncbp=860) 1+ few TARGET CELLS (BEAKER) (test xmsr=521) 1+ few [id number] 08:11:00 Test Item Value Reference Range Comments PHOSPHORUS (BEAKER) (test spzq=906) 4.3 mg/dL 2.3-4.7 [id number] 08:11:00 Test Item Value Reference Range Comments MAGNESIUM (BEAKER) (test meyd=937) 1.3 mg/dL 1.6-2.6 BASIC METABOLIC [id number] 08:11:00 Test Item Value Reference Range Comments SODIUM (BEAKER) (test 140 meq/L 136-145 szjl=799) POTASSIUM (BEAKER) (test 3.4 meq/L 3.5-5.1 izbu=248) CHLORIDE (BEAKER) (test 103 meq/L 98-107 ytiq=372) CO2 (BEAKER) (test 27 meq/L 22-29 peiy=033) BLOOD UREA NITROGEN 15 mg/dL 7-21 (BEAKER) (test qfzn=277) CREATININE (BEAKER) (test 1.10 mg/dL 0.57-1.25 hvfx=461) GLUCOSE RANDOM (BEAKER) 91 mg/dL 70-105 (test gnog=172) CALCIUM (BEAKER) (test 8.5 mg/dL 8.4-10.2 rcnn=568) EGFR (BEAKER) (test 67 mL/min/1.73 sq m ESTIMATED GFR IS NOT fbwy=4135) ACCURATE CREATININE CLEARANCE IN PREDICTING GLOMERULAR FILTRATION RATE. ESTIMATED GFR IS NOT APPLICABLE FOR DIALYSIS PATIENTS. CALCIUM, [id number] 07:19:00 Test Item Value Reference Range Comments CALCIUM IONIZED (BEAKER) (test fakq=154) 0.98 mmol/L 1.12-1.27 PH, BLOOD (BEAKER) (test yuat=5600) 7.39 BLOOD [id number] 00:00:00 Test Item Value Reference Range Comments CULTURE (BEAKER) (test kqze=3612) No growth in 5 days CBC W/PLT COUNT & AUTO [id number] 13:18:00 Test Item Value Reference Range Comments WHITE BLOOD CELL COUNT (BEAKER) (test jdwe=135) 20.7 K/ L 3.5-10.5 RED BLOOD CELL COUNT (BEAKER) (test gnct=254) 2.12 M/ L 3.93-5.22 HEMOGLOBIN (BEAKER) (test uxlw=757) 6.7 GM/DL 11.2-15.7 HEMATOCRIT (BEAKER) (test toyi=444) 20.4 % 34.1-44.9 MEAN CORPUSCULAR VOLUME (BEAKER) (test jpvc=018) 96.2 fL 79.4-94.8 MEAN CORPUSCULAR HEMOGLOBIN (BEAKER) (test 31.6 pg 25.6-32.2 ayam=182) MEAN CORPUSCULAR HEMOGLOBIN CONC (BEAKER) (test 32.8 GM/DL 32.2-35.5 spwd=455) RED CELL DISTRIBUTION WIDTH (BEAKER) (test 25.9 % 11.7-14.4 rrhu=137) PLATELET COUNT (BEAKER) (test kptk=133) 262 K/CU MM 150-450 MEAN PLATELET VOLUME (BEAKER) (test tvav=525) 11.2 fL 9.4-12.3 NUCLEATED RED BLOOD CELLS (BEAKER) (test 40 /100 WBC 0-0 drqw=204) NEUTROPHILS RELATIVE PERCENT (BEAKER) (test 76 % vhmm=067) LYMPHOCYTES RELATIVE PERCENT (BEAKER) (test 16 % fvxg=829) MONOCYTES RELATIVE PERCENT (BEAKER) (test 8 % hbsc=731) EOSINOPHILS RELATIVE PERCENT (BEAKER) (test 0 % aiqn=701) BASOPHILS RELATIVE PERCENT (BEAKER) (test 0 % enww=465) NEUTROPHILS ABSOLUTE COUNT (BEAKER) (test 15.60 K/ L 1.56-6.13 ghss=799) LYMPHOCYTES ABSOLUTE COUNT (BEAKER) (test 3.23 K/ L 1.18-3.74 bnkk=296) MONOCYTES ABSOLUTE COUNT (BEAKER) (test 1.54 K/ L 0.24-0.36 ewgn=487) EOSINOPHILS ABSOLUTE COUNT (BEAKER) (test 0.02 K/ L 0.04-0.36 zxeu=760) BASOPHILS ABSOLUTE COUNT (BEAKER) (test 0.05 K/ L 0.01-0.08 psph=413) IMMATURE GRANULOCYTES-RELATIVE PERCENT (BEAKER) 1 % 0-1 (test ngra=9144) (MANUAL DIFFERENTIAL)2017-11-11 13:18:00 Test Item Value Reference Range Comments TOTAL COUNTED (BEAKER) (test zxnr=5205) WBC MORPHOLOGY (BEAKER) (test nide=302) Normal LARGE PLT(BEAKER) (test qtsz=2570) Present POLYCHROMATOPHILLIC RBCS(BEAKER) (test xvlr=133) 1+ few SICKLE CELLS (BEAKER) (test ytbh=082) 1+ few TARGET CELLS (BEAKER) (test voxa=171) 1+ few [id number] 08:05:00 Test Item Value Reference Range Comments PHOSPHORUS (BEAKER) (test bmkl=979) 5.0 mg/dL 2.3-4.7 [id number] 08:05:00 Test Item Value Reference Range Comments MAGNESIUM (BEAKER) (test syrg=459) 1.6 mg/dL 1.6-2.6 BASIC METABOLIC [id number] 08:05:00 Test Item Value Reference Range Comments SODIUM (BEAKER) (test 140 meq/L 136-145 xiis=994) POTASSIUM (BEAKER) (test 3.7 meq/L 3.5-5.1 clev=352) CHLORIDE (BEAKER) (test 107 meq/L 98-107 ctnd=490) CO2 (BEAKER) (test 24 meq/L 22-29 dzpp=335) BLOOD UREA NITROGEN 19 mg/dL 7-21 (BEAKER) (test smng=056) CREATININE (BEAKER) (test 1.23 mg/dL 0.57-1.25 osbc=398) GLUCOSE RANDOM (BEAKER) 96 mg/dL 70-105 (test pwon=005) CALCIUM (BEAKER) (test 8.5 mg/dL 8.4-10.2 bjzg=195) EGFR (BEAKER) (test 59 mL/min/1.73 sq m ESTIMATED GFR IS NOT tpig=7446) ACCURATE CREATININE CLEARANCE IN PREDICTING GLOMERULAR FILTRATION RATE. ESTIMATED GFR IS NOT APPLICABLE FOR DIALYSIS PATIENTS. CALCIUM, [id number] 06:38:00 Test Item Value Reference Range Comments CALCIUM IONIZED (BEAKER) (test czri=929) 1.07 mmol/L 1.12-1.27 PH, BLOOD (BEAKER) (test hufc=5972) 7.31 CBC W/PLT COUNT & AUTO [id number] 14:53:00 Test Item Value Reference Range Comments WHITE BLOOD CELL COUNT (BEAKER) (test euoa=724) 21.8 K/ L 3.5-10.5 RED BLOOD CELL COUNT (BEAKER) (test bzrn=094) 2.17 M/ L 3.93-5.22 HEMOGLOBIN (BEAKER) (test hutd=617) 6.8 GM/DL 11.2-15.7 HEMATOCRIT (BEAKER) (test tsau=349) 21.3 % 34.1-44.9 MEAN CORPUSCULAR VOLUME (BEAKER) (test lall=098) 98.2 fL 79.4-94.8 MEAN CORPUSCULAR HEMOGLOBIN (BEAKER) (test 31.3 pg 25.6-32.2 neaf=242) MEAN CORPUSCULAR HEMOGLOBIN CONC (BEAKER) (test 31.9 GM/DL 32.2-35.5 qwdl=985) RED CELL DISTRIBUTION WIDTH (BEAKER) (test 27.6 % 11.7-14.4 hpvg=640) PLATELET COUNT (BEAKER) (test zdsv=792) 244 K/CU MM 150-450 MEAN PLATELET VOLUME (BEAKER) (test ekji=889) 11.4 fL 9.4-12.3 NUCLEATED RED BLOOD CELLS (BEAKER) (test 80 /100 WBC 0-0 ymct=007) NEUTROPHILS RELATIVE PERCENT (BEAKER) (test 82 % fdem=453) LYMPHOCYTES RELATIVE PERCENT (BEAKER) (test 7 % ampz=916) MONOCYTES RELATIVE PERCENT (BEAKER) (test 10 % fhcj=927) EOSINOPHILS RELATIVE PERCENT (BEAKER) (test 0 % ehyt=550) BASOPHILS RELATIVE PERCENT (BEAKER) (test 0 % yvzb=273) NEUTROPHILS ABSOLUTE COUNT (BEAKER) (test 17.85 K/ L 1.56-6.13 dbgb=606) LYMPHOCYTES ABSOLUTE COUNT (BEAKER) (test 1.60 K/ L 1.18-3.74 tpoc=175) MONOCYTES ABSOLUTE COUNT (BEAKER) (test 2.14 K/ L 0.24-0.36 kiki=810) EOSINOPHILS ABSOLUTE COUNT (BEAKER) (test 0.03 K/ L 0.04-0.36 blwz=343) BASOPHILS ABSOLUTE COUNT (BEAKER) (test 0.03 K/ L 0.01-0.08 oucc=332) IMMATURE GRANULOCYTES-RELATIVE PERCENT (BEAKER) 1 % 0-1 (test kkby=0221) (MANUAL DIFFERENTIAL)2017-11-10 14:53:00 Test Item Value Reference Range Comments TOTAL COUNTED (BEAKER) (test ooql=5524) WBC MORPHOLOGY (BEAKER) (test ndzl=212) Normal LARGE PLT(BEAKER) (test mmsz=2728) Present SCHISTOCYTES (BEAKER) (test zfwz=149) 1+ few ACANTHOCYTES (BEAKER) (test jqcd=925) 1+ few ANISOCYTOSIS (BEAKER) (test ifss=475) 2+ moderate HYPOCHROMIA (BEAKER) (test zqjw=136) 2+ moderate MACROCYTES (BEAKER) (test nsnd=778) 3+ many MICROCYTES (BEAKER) (test wuvm=492) 2+ moderate OVALOCYTES (BEAKER) (test umpm=681) 1+ few POIKILOCYTES (BEAKER) (test peqr=475) 3+ many POLYCHROMATOPHILLIC RBCS(BEAKER) (test ogpi=202) 2+ moderate SICKLE CELLS (BEAKER) (test rjwg=634) 2+ moderate TARGET CELLS (BEAKER) (test ruzo=769) 1+ few BASIC METABOLIC [id number] 08:54:00 Test Item Value Reference Range Comments SODIUM (BEAKER) (test 140 meq/L 136-145 znlq=201) POTASSIUM (BEAKER) (test 4.0 meq/L 3.5-5.1 kgsc=190) CHLORIDE (BEAKER) (test 109 meq/L 98-107 wvuz=065) CO2 (BEAKER) (test 19 meq/L 22-29 avsf=827) BLOOD UREA NITROGEN 21 mg/dL 7-21 (BEAKER) (test dsxx=060) CREATININE (BEAKER) (test 1.27 mg/dL 0.57-1.25 ozda=797) GLUCOSE RANDOM (BEAKER) 122 mg/dL 70-105 (test mvup=670) CALCIUM (BEAKER) (test 8.6 mg/dL 8.4-10.2 nvgq=893) EGFR (BEAKER) (test 57 mL/min/1.73 sq m ESTIMATED GFR IS NOT ncgu=1942) ACCURATE CREATININE CLEARANCE IN PREDICTING GLOMERULAR FILTRATION RATE. ESTIMATED GFR IS NOT APPLICABLE FOR DIALYSIS PATIENTS. [id number] 08:54:00 Test Item Value Reference Range Comments MAGNESIUM (BEAKER) (test asro=283) 1.5 mg/dL 1.6-2.6 [id number] 08:54:00 Test Item Value Reference Range Comments PHOSPHORUS (BEAKER) (test qmff=443) 4.5 mg/dL 2.3-4.7 COMPREHENSIVE METABOLIC [id number] 08:54:00 Test Item Value Reference Range Comments TOTAL PROTEIN (BEAKER) 8.2 gm/dL 6.0-8.3 (test gffl=753) ALBUMIN (BEAKER) (test 3.1 g/dL 3.5-5.0 obnx=0756) ALKALINE PHOSPHATASE 154 U/L 40-150 (BEAKER) (test xcwg=729) BILIRUBIN TOTAL (BEAKER) 1.4 mg/dL 0.2-1.2 (test omoa=050) SODIUM (BEAKER) (test 140 meq/L 136-145 hkvf=212) POTASSIUM (BEAKER) (test 4.0 meq/L 3.5-5.1 ibtc=570) CHLORIDE (BEAKER) (test 109 meq/L 98-107 htsr=332) CO2 (BEAKER) (test 19 meq/L 22-29 cqyk=915) BLOOD UREA NITROGEN 21 mg/dL 7-21 (BEAKER) (test rmvp=290) CREATININE (BEAKER) (test 1.27 mg/dL 0.57-1.25 fvhf=950) GLUCOSE RANDOM (BEAKER) 122 mg/dL 70-105 (test ssfc=818) CALCIUM (BEAKER) (test 8.6 mg/dL 8.4-10.2 jmak=370) AST (SGOT) (BEAKER) (test 72 U/L 5-34 foyt=771) ALT (SGPT) (BEAKER) (test 50 U/L 6-55 srnw=058) EGFR (BEAKER) (test 57 mL/min/1.73 sq m ESTIMATED GFR IS NOT swfx=2038) ACCURATE CREATININE CLEARANCE IN PREDICTING GLOMERULAR FILTRATION RATE. ESTIMATED GFR IS NOT APPLICABLE FOR DIALYSIS PATIENTS. CALCIUM, [id number] 07:21:00 Test Item Value Reference Range Comments CALCIUM IONIZED (BEAKER) (test oaxf=265) 1.04 mmol/L 1.12-1.27 PH, BLOOD (BEAKER) (test fvpu=9867) 7.39 CBC W/PLT COUNT & AUTO [id number] 12:10:00 Test Item Value Reference Range Comments WHITE BLOOD CELL COUNT (BEAKER) (test clca=886) 20.8 K/ L 3.5-10.5 RED BLOOD CELL COUNT (BEAKER) (test mehp=612) 2.11 M/ L 3.93-5.22 HEMOGLOBIN (BEAKER) (test saze=413) 6.6 GM/DL 11.2-15.7 HEMATOCRIT (BEAKER) (test qjnj=830) 20.4 % 34.1-44.9 MEAN CORPUSCULAR VOLUME (BEAKER) (test fbsk=623) 96.7 fL 79.4-94.8 MEAN CORPUSCULAR HEMOGLOBIN (BEAKER) (test 31.3 pg 25.6-32.2 sids=528) MEAN CORPUSCULAR HEMOGLOBIN CONC (BEAKER) (test 32.4 GM/DL 32.2-35.5 ktjr=432) RED CELL DISTRIBUTION WIDTH (BEAKER) (test 27.2 % 11.7-14.4 wmfa=005) PLATELET COUNT (BEAKER) (test gjqp=131) 237 K/CU MM 150-450 MEAN PLATELET VOLUME (BEAKER) (test ehkh=422) 10.7 fL 9.4-12.3 NUCLEATED RED BLOOD CELLS (BEAKER) (test 98 /100 WBC 0-0 znsf=326) NEUTROPHILS RELATIVE PERCENT (BEAKER) (test 82 % ftuu=233) LYMPHOCYTES RELATIVE PERCENT (BEAKER) (test 6 % jovr=297) MONOCYTES RELATIVE PERCENT (BEAKER) (test 11 % jdds=258) EOSINOPHILS RELATIVE PERCENT (BEAKER) (test 0 % zdiy=729) BASOPHILS RELATIVE PERCENT (BEAKER) (test 0 % gslj=238) NEUTROPHILS ABSOLUTE COUNT (BEAKER) (test 16.91 K/ L 1.56-6.13 tqmg=665) LYMPHOCYTES ABSOLUTE COUNT (BEAKER) (test 1.31 K/ L 1.18-3.74 ttzb=712) MONOCYTES ABSOLUTE COUNT (BEAKER) (test 2.37 K/ L 0.24-0.36 nhrn=806) EOSINOPHILS ABSOLUTE COUNT (BEAKER) (test 0.01 K/ L 0.04-0.36 xgyj=514) BASOPHILS ABSOLUTE COUNT (BEAKER) (test 0.05 K/ L 0.01-0.08 dwop=141) IMMATURE GRANULOCYTES-RELATIVE PERCENT (BEAKER) 1 % 0-1 (test etfr=9598) (MANUAL DIFFERENTIAL)2017-11-09 12:10:00 Test Item Value Reference Range Comments TOTAL COUNTED (BEAKER) (test odop=3975) WBC MORPHOLOGY (BEAKER) (test hoai=923) Normal PLT MORPHOLOGY (BEAKER) (test mmro=858) Normal ANISOCYTOSIS (BEAKER) (test bkcq=855) 2+ moderate MATTHEWS-JOLLY BODIES (BEAKER) (test zjvw=081) 1+ few POIKILOCYTES (BEAKER) (test rjju=771) 2+ moderate POLYCHROMATOPHILLIC RBCS(BEAKER) (test ilwa=941) 1+ few SICKLE CELLS (BEAKER) (test yuqa=521) 2+ moderate TARGET CELLS (BEAKER) (test qqtl=798) 1+ few CALCIUM, [id number] 07:44:00 Test Item Value Reference Range Comments CALCIUM IONIZED (BEAKER) (test wlac=314) 1.16 mmol/L 1.12-1.27 PH, BLOOD (BEAKER) (test rumy=9965) 7.25 B-TYPE NATRIURETIC FACTOR (BNP)2017-11-09 07:43:00 Test Item Value Reference Range Comments B-TYPE NATRIURETIC PEPTIDE (BEAKER) (test 903 pg/mL 0-100 bgjr=963) [id number] 07:27:00 Test Item Value Reference Range Comments PHOSPHORUS (BEAKER) (test rgyk=517) 4.4 mg/dL 2.3-4.7 [id number] 07:27:00 Test Item Value Reference Range Comments MAGNESIUM (BEAKER) (test xakd=046) 1.7 mg/dL 1.6-2.6 COMPREHENSIVE METABOLIC [id number] 07:27:00 Test Item Value Reference Range Comments TOTAL PROTEIN (BEAKER) 7.8 gm/dL 6.0-8.3 (test rnnv=163) ALBUMIN (BEAKER) (test 3.2 g/dL 3.5-5.0 aakm=6797) ALKALINE PHOSPHATASE 165 U/L 40-150 (BEAKER) (test fbra=222) BILIRUBIN TOTAL (BEAKER) 1.3 mg/dL 0.2-1.2 (test iajl=335) SODIUM (BEAKER) (test 143 meq/L 136-145 rpbn=549) POTASSIUM (BEAKER) (test 4.2 meq/L 3.5-5.1 hmte=826) CHLORIDE (BEAKER) (test 112 meq/L 98-107 akou=134) CO2 (BEAKER) (test 23 meq/L 22-29 wewa=368) BLOOD UREA NITROGEN 29 mg/dL 7-21 (BEAKER) (test djah=058) CREATININE (BEAKER) (test 1.54 mg/dL 0.57-1.25 lmfe=210) GLUCOSE RANDOM (BEAKER) 108 mg/dL 70-105 (test ipba=327) CALCIUM (BEAKER) (test 9.1 mg/dL 8.4-10.2 evdu=595) AST (SGOT) (BEAKER) (test 110 U/L 5-34 zgdn=471) ALT (SGPT) (BEAKER) (test 64 U/L 6-55 tker=895) EGFR (BEAKER) (test 46 mL/min/1.73 sq m ESTIMATED GFR IS NOT gqfa=6317) ACCURATE CREATININE CLEARANCE IN PREDICTING GLOMERULAR FILTRATION RATE. ESTIMATED GFR IS NOT APPLICABLE FOR DIALYSIS PATIENTS. BASIC METABOLIC [id number] 07:27:00 Test Item Value Reference Range Comments SODIUM (BEAKER) (test 143 meq/L 136-145 mddj=443) POTASSIUM (BEAKER) (test 4.2 meq/L 3.5-5.1 vnyp=423) CHLORIDE (BEAKER) (test 112 meq/L 98-107 qapg=609) CO2 (BEAKER) (test 23 meq/L 22-29 efgx=398) BLOOD UREA NITROGEN 29 mg/dL 7-21 (BEAKER) (test ceun=709) CREATININE (BEAKER) (test 1.54 mg/dL 0.57-1.25 ximp=388) GLUCOSE RANDOM (BEAKER) 108 mg/dL 70-105 (test ggyc=117) CALCIUM (BEAKER) (test 9.1 mg/dL 8.4-10.2 muig=936) EGFR (BEAKER) (test 46 mL/min/1.73 sq m ESTIMATED GFR IS NOT qrte=3909) ACCURATE CREATININE CLEARANCE IN PREDICTING GLOMERULAR FILTRATION RATE. ESTIMATED GFR IS NOT APPLICABLE FOR DIALYSIS PATIENTS. RAD, CHEST, 1 VIEW, NON [id number] 20:41:00Reason for exam:->edemaShould this be performed at [...] MDReport Verified Date/Time: 11/08/2017 20:41:24 Reading Location: [address] Reading Room Electronically signed by: CLIFF SALCIDO M.D. on 08:41 PMEOSINOPHIL SMEAR, [id number] 12:49:00 Test Item Value Reference Range Comments EOSINOPHIL SMEAR, URINE (BEAKER) (test No EOS seen No EOS seen qrba=5208) CBC W/PLT COUNT & AUTO [id number] 10:40:00 Test Item Value Reference Range Comments WHITE BLOOD CELL COUNT (BEAKER) (test wvcn=041) 18.6 K/ L 3.5-10.5 RED BLOOD CELL COUNT (BEAKER) (test cnmo=794) 2.21 M/ L 3.93-5.22 HEMOGLOBIN (BEAKER) (test vhdx=355) 6.8 GM/DL 11.2-15.7 HEMATOCRIT (BEAKER) (test cggi=404) 20.6 % 34.1-44.9 MEAN CORPUSCULAR VOLUME (BEAKER) (test iuuw=664) 93.2 fL 79.4-94.8 MEAN CORPUSCULAR HEMOGLOBIN (BEAKER) (test 30.8 pg 25.6-32.2 edcu=244) MEAN CORPUSCULAR HEMOGLOBIN CONC (BEAKER) (test 33.0 GM/DL 32.2-35.5 aceg=912) RED CELL DISTRIBUTION WIDTH (BEAKER) (test 25.5 % 11.7-14.4 tvtk=817) PLATELET COUNT (BEAKER) (test hwxi=211) 255 K/CU MM 150-450 MEAN PLATELET VOLUME (BEAKER) (test oxfj=655) 10.6 fL 9.4-12.3 NUCLEATED RED BLOOD CELLS (BEAKER) (test 87 /100 WBC 0-0 gwns=093) NEUTROPHILS RELATIVE PERCENT (BEAKER) (test 70 % fqcz=795) LYMPHOCYTES RELATIVE PERCENT (BEAKER) (test 14 % qplg=153) MONOCYTES RELATIVE PERCENT (BEAKER) (test 14 % glsb=766) EOSINOPHILS RELATIVE PERCENT (BEAKER) (test 0 % vifx=736) BASOPHILS RELATIVE PERCENT (BEAKER) (test 0 % kmfs=562) NEUTROPHILS ABSOLUTE COUNT (BEAKER) (test 12.98 K/ L 1.56-6.13 puol=253) LYMPHOCYTES ABSOLUTE COUNT (BEAKER) (test 2.67 K/ L 1.18-3.74 mqdk=477) MONOCYTES ABSOLUTE COUNT (BEAKER) (test 2.65 K/ L 0.24-0.36 pwnj=714) EOSINOPHILS ABSOLUTE COUNT (BEAKER) (test 0.07 K/ L 0.04-0.36 loev=475) BASOPHILS ABSOLUTE COUNT (BEAKER) (test 0.05 K/ L 0.01-0.08 modr=897) IMMATURE GRANULOCYTES-RELATIVE PERCENT (BEAKER) 1 % 0-1 (test xtbh=7182) (MANUAL DIFFERENTIAL)2017-11-08 10:40:00 Test Item Value Reference Range Comments TOTAL COUNTED (BEAKER) (test pryg=4212) WBC MORPHOLOGY (BEAKER) (test chii=606) Normal LARGE PLT(BEAKER) (test bqxr=1711) Present POLYCHROMATOPHILLIC RBCS(BEAKER) (test cthp=983) 2+ moderate SICKLE CELLS (BEAKER) (test nsgw=079) 3+ many TARGET CELLS (BEAKER) (test zzwq=087) 1+ few CT, [id number] 08:29:00FINAL REPORT HISTORY : Abdominal pain, unspecified [...] small fluid collection. Signed : [facility]ami Quick [facility] Verified Date/Time: 11/08/2017 08:29:54 [facility] [place] [address] Electronically signed by: DAMI QUICK M.D. on11/08/2017 08:29 AMBASIC METABOLIC [id number] 08:14:00 Test Item Value Reference Range Comments SODIUM (BEAKER) (test 141 meq/L 136-145 npcs=536) POTASSIUM (BEAKER) (test 4.4 meq/L 3.5-5.1 pkny=417) CHLORIDE (BEAKER) (test 111 meq/L 98-107 oddv=545) CO2 (BEAKER) (test 17 meq/L 22-29 zugj=098) BLOOD UREA NITROGEN 37 mg/dL 7-21 (BEAKER) (test fung=822) CREATININE (BEAKER) (test 2.07 mg/dL 0.57-1.25 zpem=918) GLUCOSE RANDOM (BEAKER) 101 mg/dL 70-105 (test psox=676) CALCIUM (BEAKER) (test 8.9 mg/dL 8.4-10.2 riky=484) EGFR (BEAKER) (test 32 mL/min/1.73 sq m ESTIMATED GFR IS NOT esph=3171) ACCURATE CREATININE CLEARANCE IN PREDICTING GLOMERULAR FILTRATION RATE. ESTIMATED GFR IS NOT APPLICABLE FOR DIALYSIS PATIENTS. COMPREHENSIVE METABOLIC [id number] 08:14:00 Test Item Value Reference Range Comments TOTAL PROTEIN (BEAKER) 8.6 gm/dL 6.0-8.3 (test ynhg=336) ALBUMIN (BEAKER) (test 3.4 g/dL 3.5-5.0 warw=8219) ALKALINE PHOSPHATASE 155 U/L 40-150 (BEAKER) (test evga=868) BILIRUBIN TOTAL (BEAKER) 1.7 mg/dL 0.2-1.2 (test ilqr=237) SODIUM (BEAKER) (test 141 meq/L 136-145 nuqs=031) POTASSIUM (BEAKER) (test 4.4 meq/L 3.5-5.1 aokz=995) CHLORIDE (BEAKER) (test 111 meq/L 98-107 mdxf=437) CO2 (BEAKER) (test 17 meq/L 22-29 isft=311) BLOOD UREA NITROGEN 37 mg/dL 7-21 (BEAKER) (test bacy=452) CREATININE (BEAKER) (test 2.07 mg/dL 0.57-1.25 viqd=732) GLUCOSE RANDOM (BEAKER) 101 mg/dL 70-105 (test mrkt=345) CALCIUM (BEAKER) (test 8.9 mg/dL 8.4-10.2 gzoy=615) AST (SGOT) (BEAKER) (test 144 U/L 5-34 tarw=508) ALT (SGPT) (BEAKER) (test 70 U/L 6-55 jdtr=094) EGFR (BEAKER) (test 32 mL/min/1.73 sq m ESTIMATED GFR IS NOT flmx=2733) ACCURATE CREATININE CLEARANCE IN PREDICTING GLOMERULAR FILTRATION RATE. ESTIMATED GFR IS NOT APPLICABLE FOR DIALYSIS PATIENTS. PROTEIN, RANDOM [id number] 07:49:00 Test Item Value Reference Range Comments PROTEIN, URINE (BEAKER) (test hmsh=5096) 24 mg/dL 0-14 CREATININE, RANDOM [id number] 07:47:00 Test Item Value Reference Range Comments CREATININE URINE (BEAKER) (test bygy=102) 46.0 mg/dL Reference Range: No NormalsSODIUM, RANDOM [id number] 07:47:00 Test Item Value Reference Range Comments SODIUM URINE (BEAKER) (test buns=913) 65 meq/L Reference Range: No NormalsU/S, ABDOMINAL, [id number] 19:58:00Reason for exam:->GRAYSON, abdominal painShould this be [...] MDReport Verified Date/Time: 11/07/2017 19:58:17 Reading Location: [address] Consult Reading Room LACTIC ACID, VENOUS, WHOLE [id number] 16:11:00 Test Item Value Reference Range Comments LACTATE BLOOD VENOUS (2) 0.9 mmol/L 0.5-2.2 Specimen slightly hemolyzed (BEAKER) (test ucka=5637) Effective 12/22/2015: Units/Reference Range ChangeNew: 0.5-2.2 mmol/L Previous: 5 -20 mg/dLCBC W/PLT COUNT & AUTO [id number] 10:20:00 Test Item Value Reference Range Comments WHITE BLOOD CELL COUNT (BEAKER) (test fyso=478) 23.2 K/ L 3.5-10.5 RED BLOOD CELL COUNT (BEAKER) (test usse=576) 1.84 M/ L 3.93-5.22 HEMOGLOBIN (BEAKER) (test acyr=511) 5.8 GM/DL 11.2-15.7 HEMATOCRIT (BEAKER) (test xbxa=082) 17.3 % 34.1-44.9 MEAN CORPUSCULAR VOLUME (BEAKER) (test sonc=522) 94.0 fL 79.4-94.8 MEAN CORPUSCULAR HEMOGLOBIN (BEAKER) (test 31.5 pg 25.6-32.2 shqf=845) MEAN CORPUSCULAR HEMOGLOBIN CONC (BEAKER) (test 33.5 GM/DL 32.2-35.5 kiql=943) RED CELL DISTRIBUTION WIDTH (BEAKER) (test 24.1 % 11.7-14.4 phrv=813) PLATELET COUNT (BEAKER) (test wmkp=518) 249 K/CU MM 150-450 MEAN PLATELET VOLUME (BEAKER) (test wtat=838) 10.8 fL 9.4-12.3 NUCLEATED RED BLOOD CELLS (BEAKER) (test 48 /100 WBC 0-0 tnfq=493) IMMATURE GRANULOCYTES-RELATIVE PERCENT (BEAKER) 2 % 0-1 (test rbtm=3129) (MANUAL DIFFERENTIAL)2017-11-07 10:20:00 Test Item Value Reference Range Comments NEUTROPHILS - REL (DIFF) (BEAKER) (test 68 % sbhe=5527) LYMPHOCYTES - REL (DIFF) (BEAKER) (test 27 % luoo=7081) MONOCYTES - REL (DIFF) (BEAKER) (test xtqw=6012) 5 % EOSINOPHILS - REL (DIFF) (BEAKER) (test 0 % wmjh=7190) BASOPHILS - REL (DIFF) (BEAKER) (test opur=3182) 0 % NEUTROPHILS - ABS (DIFF) (BEAKER) (test 15.78 K/ L 1.80-8.00 pmhg=9333) LYMPHOCYTES - ABS (DIFF) (BEAKER) (test 6.26 K/ L 1.48-4.50 zwfe=5156) MONOCYTES - ABS (DIFF) (BEAKER) (test pqld=1131) 1.16 K/ L 0.00-1.30 EOSINOPHILS - ABS (DIFF) (BEAKER) (test 0.00 K/ L 0.00-0.50 gttg=0009) BASOPHILS - ABS (DIFF) (BEAKER) (test ksfb=2234) 0.00 K/ L 0.00-0.20 TOTAL COUNTED (BEAKER) (test eynt=5981) 100 MANUAL NRBC PER 100 CELLS (BEAKER) (test 51 /100 WBC 0-0 nsac=2932) WBC MORPHOLOGY (BEAKER) (test pmox=447) Normal PLT MORPHOLOGY (BEAKER) (test wpcf=485) Normal ANISOCYTOSIS (BEAKER) (test szdz=369) 3+ many POLYCHROMATOPHILLIC RBCS(BEAKER) (test dcqx=523) 2+ moderate SICKLE CELLS (BEAKER) (test grai=148) 3+ many TARGET CELLS (BEAKER) (test osxl=816) 1+ few BASIC METABOLIC [id number] 06:28:00 Test Item Value Reference Range Comments SODIUM (BEAKER) (test 132 meq/L 136-145 unzf=031) POTASSIUM (BEAKER) (test 4.4 meq/L 3.5-5.1 qyjl=790) CHLORIDE (BEAKER) (test 109 meq/L 98-107 afbx=698) CO2 (BEAKER) (test 20 meq/L 22-29 udsr=542) BLOOD UREA NITROGEN 39 mg/dL 7-21 (BEAKER) (test xbkc=655) CREATININE (BEAKER) (test 2.20 mg/dL 0.57-1.25 zkgs=930) GLUCOSE RANDOM (BEAKER) 123 mg/dL 70-105 (test lqwd=309) CALCIUM (BEAKER) (test 8.7 mg/dL 8.4-10.2 mnbu=925) EGFR (BEAKER) (test 30 mL/min/1.73 sq m ESTIMATED GFR IS NOT rvhv=5731) ACCURATE CREATININE CLEARANCE IN PREDICTING GLOMERULAR FILTRATION RATE. ESTIMATED GFR IS NOT APPLICABLE FOR DIALYSIS PATIENTS. COMPREHENSIVE METABOLIC [id number] 18:37:00 Test Item Value Reference Range Comments TOTAL PROTEIN (BEAKER) 8.5 gm/dL 6.0-8.3 (test ozws=571) ALBUMIN (BEAKER) (test 3.4 g/dL 3.5-5.0 rekk=5886) ALKALINE PHOSPHATASE 166 U/L 40-150 (BEAKER) (test qoyt=739) BILIRUBIN TOTAL (BEAKER) 4.0 mg/dL 0.2-1.2 (test rgnv=370) SODIUM (BEAKER) (test 142 meq/L 136-145 zqjs=405) POTASSIUM (BEAKER) (test 4.7 meq/L 3.5-5.1 kvkz=271) CHLORIDE (BEAKER) (test 110 meq/L 98-107 ayfo=952) CO2 (BEAKER) (test 22 meq/L 22-29 extr=602) BLOOD UREA NITROGEN 35 mg/dL 7-21 (BEAKER) (test suim=223) CREATININE (BEAKER) (test 1.97 mg/dL 0.57-1.25 emrw=996) GLUCOSE RANDOM (BEAKER) 119 mg/dL 70-105 (test dfaz=883) CALCIUM (BEAKER) (test 8.5 mg/dL 8.4-10.2 khzv=683) AST (SGOT) (BEAKER) (test 278 U/L 5-34 eufg=323) ALT (SGPT) (BEAKER) (test 92 U/L 6-55 ixhv=298) EGFR (BEAKER) (test 34 mL/min/1.73 sq m ESTIMATED GFR IS NOT fsws=8933) ACCURATE CREATININE CLEARANCE IN PREDICTING GLOMERULAR FILTRATION RATE. ESTIMATED GFR IS NOT APPLICABLE FOR DIALYSIS PATIENTS. Specimen slightly ictericCBC W/PLT COUNT & AUTO [id number] 14:59 :00 Test Item Value Reference Range Comments WHITE BLOOD CELL COUNT (BEAKER) (test grvt=386) 24.3 K/ L 3.5-10.5 RED BLOOD CELL COUNT (BEAKER) (test zniy=696) 1.73 M/ L 3.93-5.22 HEMOGLOBIN (BEAKER) (test hkrh=237) 5.5 GM/DL 11.2-15.7 HEMATOCRIT (BEAKER) (test sxik=458) 16.7 % 34.1-44.9 MEAN CORPUSCULAR VOLUME (BEAKER) (test vhhi=282) 96.5 fL 79.4-94.8 MEAN CORPUSCULAR HEMOGLOBIN (BEAKER) (test 31.8 pg 25.6-32.2 ebft=506) MEAN CORPUSCULAR HEMOGLOBIN CONC (BEAKER) (test 32.9 GM/DL 32.2-35.5 rccl=386) RED CELL DISTRIBUTION WIDTH (BEAKER) (test 25.8 % 11.7-14.4 pfiu=505) PLATELET COUNT (BEAKER) (test rfcb=912) 259 K/CU MM 150-450 MEAN PLATELET VOLUME (BEAKER) (test whov=525) 11.1 fL 9.4-12.3 NUCLEATED RED BLOOD CELLS (BEAKER) (test 29 /100 WBC 0-0 aadt=857) IMMATURE GRANULOCYTES-RELATIVE PERCENT (BEAKER) 2 % 0-1 (test pxsv=7470) (MANUAL DIFFERENTIAL)2017-11-06 14:59:00 Test Item Value Reference Range Comments NEUTROPHILS - REL (DIFF) (BEAKER) (test 65 % kvmm=2528) LYMPHOCYTES - REL (DIFF) (BEAKER) (test 26 % dhhl=4049) MONOCYTES - REL (DIFF) (BEAKER) (test nabm=1749) 8 % MYELOCYTES-REL (DIFF) (BEAKER) (test gobm=8029) 1 % 0-0 NEUTROPHILS - ABS (DIFF) (BEAKER) (test 15.80 K/ L 1.80-8.00 xmhf=2347) LYMPHOCYTES - ABS (DIFF) (BEAKER) (test 6.32 K/ L 1.48-4.50 jjkc=4721) MONOCYTES - ABS (DIFF) (BEAKER) (test pvhk=2019) 1.94 K/ L 0.00-1.30 MYELOCYTES-ABS (DIFF) (BEAKER) (test ihet=0054) 0.24 K/ L 0.00-0.00 TOTAL COUNTED (BEAKER) (test kwpz=4896) 100 MANUAL NRBC PER 100 CELLS (BEAKER) (test 34 /100 WBC 0-0 hwez=4473) WBC MORPHOLOGY (BEAKER) (test fwqy=187) Normal PLT MORPHOLOGY (BEAKER) (test dxiy=590) Normal ANISOCYTOSIS (BEAKER) (test gegz=329) 3+ many MATTHEWS-JOLLY BODIES (BEAKER) (test zkdc=564) Present POIKILOCYTES (BEAKER) (test qadd=210) 1+ few POLYCHROMATOPHILLIC RBCS(BEAKER) (test ohqs=838) 2+ moderate SICKLE CELLS (BEAKER) (test aase=673) 3+ many BASIC METABOLIC [id number] 09:37:00 Test Item Value Reference Range Comments SODIUM (BEAKER) (test 139 meq/L 136-145 ipvj=647) POTASSIUM (BEAKER) (test 4.5 meq/L 3.5-5.1 ixmd=210) CHLORIDE (BEAKER) (test 107 meq/L 98-107 szle=461) CO2 (BEAKER) (test 19 meq/L 22-29 ride=484) BLOOD UREA NITROGEN 27 mg/dL 7-21 (BEAKER) (test chvu=189) CREATININE (BEAKER) (test 1.37 mg/dL 0.57-1.25 ikxd=702) GLUCOSE RANDOM (BEAKER) 124 mg/dL 70-105 (test wkfe=123) CALCIUM (BEAKER) (test 8.2 mg/dL 8.4-10.2 zdsa=225) EGFR (BEAKER) (test 52 mL/min/1.73 sq m ESTIMATED GFR IS NOT howh=8635) ACCURATE CREATININE CLEARANCE IN PREDICTING GLOMERULAR FILTRATION RATE. ESTIMATED GFR IS NOT APPLICABLE FOR DIALYSIS PATIENTS. Specimen slightly ictericURINALYSIS W/ [id number] 06:22:00 Test Item Value Reference Range Comments COLOR (BEAKER) (test oyya=524) Brown CLARITY (BEAKER) (test ijux=430) Cloudy SPECIFIC GRAVITY UA (BEAKER) (test 1.015 1.001-1.035 wzqk=535) PH UA (BEAKER) (test dibh=860) 5.5 5.0-8.0 PROTEIN UA (BEAKER) (test kfeq=610) 100 mg/dL Negative GLUCOSE UA (BEAKER) (test pmal=969) Negative Negative KETONES UA (BEAKER) (test mphq=545) Negative Negative BILIRUBIN UA (BEAKER) (test rgff=333) Positive Negative BLOOD UA (BEAKER) (test luml=068) Large Negative NITRITE UA (BEAKER) (test csqp=976) Negative Negative LEUKOCYTE ESTERASE UA (BEAKER) (test Trace Negative blve=695) UROBILINOGEN UA (BEAKER) (test gifj=674) 4.0 mg/dL 0.2-1.0 RBC UA (BEAKER) (test tgce=350) 0 /HPF WBC UA (BEAKER) (test kovk=265) 27 /HPF MUCUS (BEAKER) (test lvgt=5340) Few SQUAMOUS EPITHELIAL (BEAKER) (test 11 /HPF uxuf=631) SOURCE(BEAKER) (test xuse=1239) Urine, Clean Catch BASIC METABOLIC [id number] 10:56:00 Test Item Value Reference Range Comments SODIUM (BEAKER) (test 139 meq/L 136-145 dhoa=363) POTASSIUM (BEAKER) (test 4.2 meq/L 3.5-5.1 twto=318) CHLORIDE (BEAKER) (test 104 meq/L 98-107 rpod=023) CO2 (BEAKER) (test 23 meq/L 22-29 blzg=288) BLOOD UREA NITROGEN 9 mg/dL 7-21 (BEAKER) (test llzz=451) CREATININE (BEAKER) (test 0.66 mg/dL 0.57-1.25 xcrr=811) GLUCOSE RANDOM (BEAKER) 109 mg/dL 70-105 (test znjg=274) CALCIUM (BEAKER) (test 8.6 mg/dL 8.4-10.2 bfuc=971) EGFR (BEAKER) (test 121 mL/min/1.73 sq m ESTIMATED GFR IS NOT mjtp=4223) ACCURATE CREATININE CLEARANCE IN PREDICTING GLOMERULAR FILTRATION RATE. ESTIMATED GFR IS NOT APPLICABLE FOR DIALYSIS PATIENTS. Specimen slightly ictericCBC W/PLT COUNT & AUTO [id number] 09:17 :00 Test Item Value Reference Range Comments WHITE BLOOD CELL COUNT (BEAKER) (test piyr=660) 18.2 K/ L 3.5-10.5 RED BLOOD CELL COUNT (BEAKER) (test nrbm=283) 2.05 M/ L 3.93-5.22 HEMOGLOBIN (BEAKER) (test gaaf=008) 6.4 GM/DL 11.2-15.7 HEMATOCRIT (BEAKER) (test gasi=981) 19.9 % 34.1-44.9 MEAN CORPUSCULAR VOLUME (BEAKER) (test bwou=420) 97.1 fL 79.4-94.8 MEAN CORPUSCULAR HEMOGLOBIN (BEAKER) (test 31.2 pg 25.6-32.2 kczm=624) MEAN CORPUSCULAR HEMOGLOBIN CONC (BEAKER) (test 32.2 GM/DL 32.2-35.5 fhtu=966) RED CELL DISTRIBUTION WIDTH (BEAKER) (test 25.4 % 11.7-14.4 inpd=262) PLATELET COUNT (BEAKER) (test yyxk=843) 227 K/CU MM 150-450 MEAN PLATELET VOLUME (BEAKER) (test pdgb=318) 10.4 fL 9.4-12.3 NUCLEATED RED BLOOD CELLS (BEAKER) (test 18 /100 WBC 0-0 nsgn=017) NEUTROPHILS RELATIVE PERCENT (BEAKER) (test 57 % prti=456) LYMPHOCYTES RELATIVE PERCENT (BEAKER) (test 24 % qtqb=601) MONOCYTES RELATIVE PERCENT (BEAKER) (test 15 % lrfg=595) EOSINOPHILS RELATIVE PERCENT (BEAKER) (test 3 % irgv=090) BASOPHILS RELATIVE PERCENT (BEAKER) (test 0 % pttl=008) NEUTROPHILS ABSOLUTE COUNT (BEAKER) (test 10.46 K/ L 1.56-6.13 bnwy=769) LYMPHOCYTES ABSOLUTE COUNT (BEAKER) (test 4.31 K/ L 1.18-3.74 rwwr=957) MONOCYTES ABSOLUTE COUNT (BEAKER) (test 2.72 K/ L 0.24-0.36 yogs=686) EOSINOPHILS ABSOLUTE COUNT (BEAKER) (test 0.45 K/ L 0.04-0.36 rhoy=713) BASOPHILS ABSOLUTE COUNT (BEAKER) (test 0.07 K/ L 0.01-0.08 lbej=895) IMMATURE GRANULOCYTES-RELATIVE PERCENT (BEAKER) 1 % 0-1 (test tpjo=9795) (MANUAL DIFFERENTIAL)2017-11-05 09:17:00 Test Item Value Reference Range Comments TOTAL COUNTED (BEAKER) (test ujts=6667) WBC MORPHOLOGY (BEAKER) (test lxhm=091) Normal PLT MORPHOLOGY (BEAKER) (test nrix=422) Normal ANISOCYTOSIS (BEAKER) (test paaz=348) 2+ moderate POLYCHROMATOPHILLIC RBCS(BEAKER) (test rcqq=935) 2+ moderate SICKLE CELLS (BEAKER) (test klls=472) 2+ moderate TARGET CELLS (BEAKER) (test efau=291) 2+ moderate CREATINE KINASE (CK), TOTAL AND [id number] 22:01:00 Test Item Value Reference Range Comments CREATINE KINASE TOTAL (BEAKER) (test 10 U/L 29-200 trvg=553) CREATINE KINASE-MB (BEAKER) (test 0.1 ng/mL 0.0-6.6 uokb=666) CREATINE KINASE-MB INDEX (BEAKER) (test 1.0 % Unable to Calculate fdxn=313) CK-MB Reference Range:<6.7 Normal6.7-10.0 Borderline>10.0 AbnormalTROPONIN [id number] 21:16:00 Test Item Value Reference Range Comments TROPONIN I (BEAKER) (test okpy=865) < ng/mL 0.00-0.03 Troponin I (TnI) levels [...] and persistent tachyarrhythmia.CBC W/PLT COUNT & AUTO [id number] 06:49:00 Test Item Value Reference Range Comments WHITE BLOOD CELL COUNT (BEAKER) (test huvk=259) 13.3 K/ L 3.5-10.5 RED BLOOD CELL COUNT (BEAKER) (test vint=883) 2.18 M/ L 3.93-5.22 HEMOGLOBIN (BEAKER) (test mffk=739) 6.8 GM/DL 11.2-15.7 HEMATOCRIT (BEAKER) (test okal=098) 21.5 % 34.1-44.9 MEAN CORPUSCULAR VOLUME (BEAKER) (test squp=393) 98.6 fL 79.4-94.8 MEAN CORPUSCULAR HEMOGLOBIN (BEAKER) (test 31.2 pg 25.6-32.2 mkyy=495) MEAN CORPUSCULAR HEMOGLOBIN CONC (BEAKER) (test 31.6 GM/DL 32.2-35.5 mzeu=860) RED CELL DISTRIBUTION WIDTH (BEAKER) (test 21.1 % 11.7-14.4 omjd=092) PLATELET COUNT (BEAKER) (test vpaw=264) 192 K/CU MM 150-450 MEAN PLATELET VOLUME (BEAKER) (test tqjk=438) 11.4 fL 9.4-12.3 NUCLEATED RED BLOOD CELLS (BEAKER) (test 1 /100 WBC 0-0 yuca=629) NEUTROPHILS RELATIVE PERCENT (BEAKER) (test 51 % yyod=474) LYMPHOCYTES RELATIVE PERCENT (BEAKER) (test 30 % ocrf=734) MONOCYTES RELATIVE PERCENT (BEAKER) (test 16 % yesn=938) EOSINOPHILS RELATIVE PERCENT (BEAKER) (test 2 % qyrk=575) BASOPHILS RELATIVE PERCENT (BEAKER) (test 0 % kpeu=945) NEUTROPHILS ABSOLUTE COUNT (BEAKER) (test 6.84 K/ L 1.56-6.13 jzca=805) LYMPHOCYTES ABSOLUTE COUNT (BEAKER) (test 4.06 K/ L 1.18-3.74 racw=158) MONOCYTES ABSOLUTE COUNT (BEAKER) (test 2.12 K/ L 0.24-0.36 aocw=857) EOSINOPHILS ABSOLUTE COUNT (BEAKER) (test 0.26 K/ L 0.04-0.36 aolw=691) BASOPHILS ABSOLUTE COUNT (BEAKER) (test 0.02 K/ L 0.01-0.08 akes=923) IMMATURE GRANULOCYTES-RELATIVE PERCENT (BEAKER) 0 % 0-1 (test bjut=6626) BASIC METABOLIC [id number] 07:06:00 Test Item Value Reference Range Comments SODIUM (BEAKER) (test 138 meq/L 136-145 jpni=102) POTASSIUM (BEAKER) (test 4.2 meq/L 3.5-5.1 eqnn=927) CHLORIDE (BEAKER) (test 103 meq/L 98-107 opnd=059) CO2 (BEAKER) (test 28 meq/L 22-29 fyuk=898) BLOOD UREA NITROGEN 11 mg/dL 7-21 (BEAKER) (test miab=092) CREATININE (BEAKER) (test 0.55 mg/dL 0.57-1.25 depn=432) GLUCOSE RANDOM (BEAKER) 95 mg/dL 70-105 (test skbd=009) CALCIUM (BEAKER) (test 9.5 mg/dL 8.4-10.2 ytgd=276) EGFR (BEAKER) (test 150 mL/min/1.73 sq m ESTIMATED GFR IS NOT npya=1790) ACCURATE CREATININE CLEARANCE IN PREDICTING GLOMERULAR FILTRATION RATE. ESTIMATED GFR IS NOT APPLICABLE FOR DIALYSIS PATIENTS. CBC W/PLT COUNT & AUTO [id number] 06:48:00 Test Item Value Reference Range Comments WHITE BLOOD CELL COUNT (BEAKER) (test iyme=952) 12.8 K/ L 3.5-10.5 RED BLOOD CELL COUNT (BEAKER) (test ebjj=898) 2.22 M/ L 3.93-5.22 HEMOGLOBIN (BEAKER) (test vdjf=809) 7.2 GM/DL 11.2-15.7 HEMATOCRIT (BEAKER) (test vllf=112) 21.9 % 34.1-44.9 MEAN CORPUSCULAR VOLUME (BEAKER) (test lpuu=488) 98.6 fL 79.4-94.8 MEAN CORPUSCULAR HEMOGLOBIN (BEAKER) (test 32.4 pg 25.6-32.2 lspg=516) MEAN CORPUSCULAR HEMOGLOBIN CONC (BEAKER) (test 32.9 GM/DL 32.2-35.5 uomm=483) RED CELL DISTRIBUTION WIDTH (BEAKER) (test 21.2 % 11.7-14.4 ibnx=695) PLATELET COUNT (BEAKER) (test cnms=061) 176 K/CU MM 150-450 MEAN PLATELET VOLUME (BEAKER) (test jilq=042) 11.2 fL 9.4-12.3 NUCLEATED RED BLOOD CELLS (BEAKER) (test 5 /100 WBC 0-0 xmtj=684) NEUTROPHILS RELATIVE PERCENT (BEAKER) (test 49 % aqpa=372) LYMPHOCYTES RELATIVE PERCENT (BEAKER) (test 31 % xgqm=841) MONOCYTES RELATIVE PERCENT (BEAKER) (test 19 % rqkp=420) EOSINOPHILS RELATIVE PERCENT (BEAKER) (test 2 % mhjc=421) BASOPHILS RELATIVE PERCENT (BEAKER) (test 0 % hmox=990) NEUTROPHILS ABSOLUTE COUNT (BEAKER) (test 6.23 K/ L 1.56-6.13 qgsa=068) LYMPHOCYTES ABSOLUTE COUNT (BEAKER) (test 3.90 K/ L 1.18-3.74 tgxa=422) MONOCYTES ABSOLUTE COUNT (BEAKER) (test 2.37 K/ L 0.24-0.36 tdig=744) EOSINOPHILS ABSOLUTE COUNT (BEAKER) (test 0.24 K/ L 0.04-0.36 mioz=430) BASOPHILS ABSOLUTE COUNT (BEAKER) (test 0.01 K/ L 0.01-0.08 dxeo=913) IMMATURE GRANULOCYTES-RELATIVE PERCENT (BEAKER) 0 % 0-1 (test klyt=8022) (MANUAL DIFFERENTIAL)2017-06-03 06:48:00 Test Item Value Reference Range Comments TOTAL COUNTED (BEAKER) (test xhcs=3692) WBC MORPHOLOGY (BEAKER) (test hsws=372) Normal PLT MORPHOLOGY (BEAKER) (test khjs=749) Normal ANISOCYTOSIS (BEAKER) (test rsia=286) 3+ many MATTHEWS-JOLLY BODIES (BEAKER) (test hcri=968) Present MACROCYTES (BEAKER) (test wgpb=470) 3+ many SICKLE CELLS (BEAKER) (test erdy=759) 1+ few TARGET CELLS (BEAKER) (test yjca=310) 1+ few BASIC METABOLIC [id number] 07:33:00 Test Item Value Reference Range Comments SODIUM (BEAKER) (test 138 meq/L 136-145 nric=840) POTASSIUM (BEAKER) (test 4.5 meq/L 3.5-5.1 gdku=967) CHLORIDE (BEAKER) (test 102 meq/L 98-107 ytqw=402) CO2 (BEAKER) (test 27 meq/L 22-29 pymq=404) BLOOD UREA NITROGEN 11 mg/dL 7-21 (BEAKER) (test gpzt=662) CREATININE (BEAKER) (test 0.55 mg/dL 0.57-1.25 lfxc=990) GLUCOSE RANDOM (BEAKER) 85 mg/dL 70-105 (test agao=269) CALCIUM (BEAKER) (test 9.5 mg/dL 8.4-10.2 rjnr=185) EGFR (BEAKER) (test 150 mL/min/1.73 sq m ESTIMATED GFR IS NOT lqyf=6435) ACCURATE CREATININE CLEARANCE IN PREDICTING GLOMERULAR FILTRATION RATE. ESTIMATED GFR IS NOT APPLICABLE FOR DIALYSIS PATIENTS. CBC W/PLT COUNT & AUTO [id number] 07:13:00 Test Item Value Reference Range Comments WHITE BLOOD CELL COUNT (BEAKER) (test awob=698) 14.2 K/ L 3.5-10.5 RED BLOOD CELL COUNT (BEAKER) (test rntf=805) 2.39 M/ L 3.93-5.22 HEMOGLOBIN (BEAKER) (test zegk=885) 7.6 GM/DL 11.2-15.7 HEMATOCRIT (BEAKER) (test aznv=598) 23.5 % 34.1-44.9 MEAN CORPUSCULAR VOLUME (BEAKER) (test ficw=826) 98.3 fL 79.4-94.8 MEAN CORPUSCULAR HEMOGLOBIN (BEAKER) (test 31.8 pg 25.6-32.2 yzpb=624) MEAN CORPUSCULAR HEMOGLOBIN CONC (BEAKER) (test 32.3 GM/DL 32.2-35.5 qfpm=112) RED CELL DISTRIBUTION WIDTH (BEAKER) (test 21.1 % 11.7-14.4 gcqy=437) PLATELET COUNT (BEAKER) (test hqws=253) 173 K/CU MM 150-450 MEAN PLATELET VOLUME (BEAKER) (test adfy=523) 11.7 fL 9.4-12.3 NUCLEATED RED BLOOD CELLS (BEAKER) (test 11 /100 WBC 0-0 csvn=640) NEUTROPHILS RELATIVE PERCENT (BEAKER) (test 53 % fqvx=240) LYMPHOCYTES RELATIVE PERCENT (BEAKER) (test 27 % nycs=907) MONOCYTES RELATIVE PERCENT (BEAKER) (test 18 % djqt=256) EOSINOPHILS RELATIVE PERCENT (BEAKER) (test 1 % pcyq=926) BASOPHILS RELATIVE PERCENT (BEAKER) (test 0 % quhi=815) NEUTROPHILS ABSOLUTE COUNT (BEAKER) (test 7.56 K/ L 1.56-6.13 bbfi=939) LYMPHOCYTES ABSOLUTE COUNT (BEAKER) (test 3.89 K/ L 1.18-3.74 wqqi=498) MONOCYTES ABSOLUTE COUNT (BEAKER) (test 2.52 K/ L 0.24-0.36 zuzu=548) EOSINOPHILS ABSOLUTE COUNT (BEAKER) (test 0.20 K/ L 0.04-0.36 ofiq=890) BASOPHILS ABSOLUTE COUNT (BEAKER) (test 0.02 K/ L 0.01-0.08 llxi=378) IMMATURE GRANULOCYTES-RELATIVE PERCENT (BEAKER) 0 % 0-1 (test xvca=8403) CBC W/PLT COUNT & AUTO [id number] 16:45:00 Test Item Value Reference Range Comments WHITE BLOOD CELL COUNT (BEAKER) (test xgml=871) 15.1 K/ L 3.5-10.5 RED BLOOD CELL COUNT (BEAKER) (test ctjy=413) 2.36 M/ L 3.93-5.22 HEMOGLOBIN (BEAKER) (test ykuq=482) 7.5 GM/DL 11.2-15.7 HEMATOCRIT (BEAKER) (test ebqa=857) 23.0 % 34.1-44.9 MEAN CORPUSCULAR VOLUME (BEAKER) (test uvgo=869) 97.5 fL 79.4-94.8 MEAN CORPUSCULAR HEMOGLOBIN (BEAKER) (test 31.8 pg 25.6-32.2 wxcx=927) MEAN CORPUSCULAR HEMOGLOBIN CONC (BEAKER) (test 32.6 GM/DL 32.2-35.5 flkz=516) RED CELL DISTRIBUTION WIDTH (BEAKER) (test 20.7 % 11.7-14.4 puxv=810) PLATELET COUNT (BEAKER) (test oauc=015) 179 K/CU MM 150-450 MEAN PLATELET VOLUME (BEAKER) (test ozoz=329) 11.9 fL 9.4-12.3 NUCLEATED RED BLOOD CELLS (BEAKER) (test 12 /100 WBC 0-0 qczr=807) NEUTROPHILS RELATIVE PERCENT (BEAKER) (test 53 % vnyr=963) LYMPHOCYTES RELATIVE PERCENT (BEAKER) (test 27 % rpvy=075) MONOCYTES RELATIVE PERCENT (BEAKER) (test 18 % bmip=461) EOSINOPHILS RELATIVE PERCENT (BEAKER) (test 2 % ssce=864) BASOPHILS RELATIVE PERCENT (BEAKER) (test 0 % kcqk=272) NEUTROPHILS ABSOLUTE COUNT (BEAKER) (test 8.03 K/ L 1.56-6.13 blmq=040) LYMPHOCYTES ABSOLUTE COUNT (BEAKER) (test 3.99 K/ L 1.18-3.74 egpy=933) MONOCYTES ABSOLUTE COUNT (BEAKER) (test 2.65 K/ L 0.24-0.36 mqbi=344) EOSINOPHILS ABSOLUTE COUNT (BEAKER) (test 0.31 K/ L 0.04-0.36 lgtj=589) BASOPHILS ABSOLUTE COUNT (BEAKER) (test 0.02 K/ L 0.01-0.08 lres=805) IMMATURE GRANULOCYTES-RELATIVE PERCENT (BEAKER) 0 % 0-1 (test spst=1551) BASIC METABOLIC [id number] 06:17:00 Test Item Value Reference Range Comments SODIUM (BEAKER) (test 138 meq/L 136-145 bmss=277) POTASSIUM (BEAKER) (test 4.1 meq/L 3.5-5.1 douu=246) CHLORIDE (BEAKER) (test 100 meq/L 98-107 yqjr=128) CO2 (BEAKER) (test 30 meq/L 22-29 wzfh=818) BLOOD UREA NITROGEN 11 mg/dL 7-21 (BEAKER) (test cmqb=214) CREATININE (BEAKER) (test 0.58 mg/dL 0.57-1.25 jwtt=949) GLUCOSE RANDOM (BEAKER) 90 mg/dL 70-105 (test eqhy=550) CALCIUM (BEAKER) (test 9.4 mg/dL 8.4-10.2 zzhv=494) EGFR (BEAKER) (test 141 mL/min/1.73 sq m ESTIMATED GFR IS NOT xdfd=9958) ACCURATE CREATININE CLEARANCE IN PREDICTING GLOMERULAR FILTRATION RATE. ESTIMATED GFR IS NOT APPLICABLE FOR DIALYSIS PATIENTS. CBC W/PLT COUNT & AUTO [id number] 13:41:00 Test Item Value Reference Range Comments WHITE BLOOD CELL COUNT (BEAKER) (test tgzg=824) 13.9 K/ L 3.5-10.5 RED BLOOD CELL COUNT (BEAKER) (test csax=540) 2.38 M/ L 3.93-5.22 HEMOGLOBIN (BEAKER) (test yxvc=042) 7.5 GM/DL 11.2-15.7 HEMATOCRIT (BEAKER) (test tybj=077) 23.2 % 34.1-44.9 MEAN CORPUSCULAR VOLUME (BEAKER) (test mriv=367) 97.5 fL 79.4-94.8 MEAN CORPUSCULAR HEMOGLOBIN (BEAKER) (test 31.5 pg 25.6-32.2 qyjq=145) MEAN CORPUSCULAR HEMOGLOBIN CONC (BEAKER) (test 32.3 GM/DL 32.2-35.5 ftau=574) RED CELL DISTRIBUTION WIDTH (BEAKER) (test 20.2 % 11.7-14.4 ezut=596) PLATELET COUNT (BEAKER) (test hrhw=529) 171 K/CU MM 150-450 MEAN PLATELET VOLUME (BEAKER) (test rusq=993) 12.0 fL 9.4-12.3 NUCLEATED RED BLOOD CELLS (BEAKER) (test 8 /100 WBC 0-0 abbr=044) NEUTROPHILS RELATIVE PERCENT (BEAKER) (test 57 % onex=964) LYMPHOCYTES RELATIVE PERCENT (BEAKER) (test 23 % ephx=542) MONOCYTES RELATIVE PERCENT (BEAKER) (test 18 % ftqn=822) EOSINOPHILS RELATIVE PERCENT (BEAKER) (test 2 % sohn=433) BASOPHILS RELATIVE PERCENT (BEAKER) (test 0 % hgdn=982) NEUTROPHILS ABSOLUTE COUNT (BEAKER) (test 7.89 K/ L 1.56-6.13 zvpj=988) LYMPHOCYTES ABSOLUTE COUNT (BEAKER) (test 3.13 K/ L 1.18-3.74 ehby=428) MONOCYTES ABSOLUTE COUNT (BEAKER) (test 2.52 K/ L 0.24-0.36 fjrc=678) EOSINOPHILS ABSOLUTE COUNT (BEAKER) (test 0.25 K/ L 0.04-0.36 edzx=197) BASOPHILS ABSOLUTE COUNT (BEAKER) (test 0.02 K/ L 0.01-0.08 iygv=297) IMMATURE GRANULOCYTES-RELATIVE PERCENT (BEAKER) 1 % 0-1 (test nvnh=9704) (MANUAL DIFFERENTIAL)2017-05-31 13:41:00 Test Item Value Reference Range Comments TOTAL COUNTED (BEAKER) (test jjmi=4800) WBC MORPHOLOGY (BEAKER) (test iale=488) Normal PLT MORPHOLOGY (BEAKER) (test exxf=303) Normal POLYCHROMATOPHILLIC RBCS(BEAKER) (test rejv=589) 2+ moderate SICKLE CELLS (BEAKER) (test zueb=658) 1+ few TARGET CELLS (BEAKER) (test vclr=371) 2+ moderate URINE [id number] 12:19:00 Test Item Value Reference Range Comments CULTURE (BEAKER) (test 20-29,000 col/mL skin valentino sioi=2576) BASIC METABOLIC [id number] 07:23:00 Test Item Value Reference Range Comments SODIUM (BEAKER) (test 136 meq/L 136-145 rcny=660) POTASSIUM (BEAKER) (test 3.9 meq/L 3.5-5.1 dtrc=415) CHLORIDE (BEAKER) (test 97 meq/L 98-107 hnqg=737) CO2 (BEAKER) (test 30 meq/L 22-29 lqsf=937) BLOOD UREA NITROGEN 9 mg/dL 7-21 (BEAKER) (test ghsq=624) CREATININE (BEAKER) (test 0.56 mg/dL 0.57-1.25 byxb=993) GLUCOSE RANDOM (BEAKER) 100 mg/dL 70-105 (test tnqj=218) CALCIUM (BEAKER) (test 9.5 mg/dL 8.4-10.2 olmt=286) EGFR (BEAKER) (test 147 mL/min/1.73 sq m ESTIMATED GFR IS NOT tywa=6031) ACCURATE CREATININE CLEARANCE IN PREDICTING GLOMERULAR FILTRATION RATE. ESTIMATED GFR IS NOT APPLICABLE FOR DIALYSIS PATIENTS. U/S, ABDOMINAL, [id number] 23:52:00Reason for exam:->painShould this be performed at [...] [place] Verified Date/Time: 05/30/2017 23:52:25 Reading Location: [facility] [id number] Consult Reading Room 11:52 PMCBC W/PLT COUNT & AUTO [id number] 17:30:00 Test Item Value Reference Range Comments WHITE BLOOD CELL COUNT (BEAKER) (test syqn=598) 14.0 K/ L 3.5-10.5 RED BLOOD CELL COUNT (BEAKER) (test njzy=549) 2.41 M/ L 3.93-5.22 HEMOGLOBIN (BEAKER) (test hemr=118) 7.7 GM/DL 11.2-15.7 HEMATOCRIT (BEAKER) (test fcxi=985) 23.3 % 34.1-44.9 MEAN CORPUSCULAR VOLUME (BEAKER) (test jlwu=136) 96.7 fL 79.4-94.8 MEAN CORPUSCULAR HEMOGLOBIN (BEAKER) (test 32.0 pg 25.6-32.2 gicp=557) MEAN CORPUSCULAR HEMOGLOBIN CONC (BEAKER) (test 33.0 GM/DL 32.2-35.5 bucp=329) RED CELL DISTRIBUTION WIDTH (BEAKER) (test 20.0 % 11.7-14.4 zaqr=565) PLATELET COUNT (BEAKER) (test zijy=038) 163 K/CU MM 150-450 MEAN PLATELET VOLUME (BEAKER) (test vfzs=121) 11.7 fL 9.4-12.3 NUCLEATED RED BLOOD CELLS (BEAKER) (test 4 /100 WBC 0-0 tgwu=758) NEUTROPHILS RELATIVE PERCENT (BEAKER) (test 47 % bypw=408) LYMPHOCYTES RELATIVE PERCENT (BEAKER) (test 32 % aann=923) MONOCYTES RELATIVE PERCENT (BEAKER) (test 18 % gvsv=423) EOSINOPHILS RELATIVE PERCENT (BEAKER) (test 3 % nzis=171) BASOPHILS RELATIVE PERCENT (BEAKER) (test 0 % rasb=987) NEUTROPHILS ABSOLUTE COUNT (BEAKER) (test 6.58 K/ L 1.56-6.13 ltju=118) LYMPHOCYTES ABSOLUTE COUNT (BEAKER) (test 4.40 K/ L 1.18-3.74 duxr=979) MONOCYTES ABSOLUTE COUNT (BEAKER) (test 2.49 K/ L 0.24-0.36 chkd=636) EOSINOPHILS ABSOLUTE COUNT (BEAKER) (test 0.44 K/ L 0.04-0.36 yljg=921) BASOPHILS ABSOLUTE COUNT (BEAKER) (test 0.02 K/ L 0.01-0.08 seqo=277) IMMATURE GRANULOCYTES-RELATIVE PERCENT (BEAKER) 0 % 0-1 (test gdhw=2047) BASIC METABOLIC [id number] 06:33:00 Test Item Value Reference Range Comments SODIUM (BEAKER) (test 139 meq/L 136-145 fpvd=882) POTASSIUM (BEAKER) (test 4.0 meq/L 3.5-5.1 gdlw=926) CHLORIDE (BEAKER) (test 102 meq/L 98-107 hpus=537) CO2 (BEAKER) (test 28 meq/L 22-29 jlxf=729) BLOOD UREA NITROGEN 7 mg/dL 7-21 (BEAKER) (test uemz=331) CREATININE (BEAKER) (test 0.54 mg/dL 0.57-1.25 ahsp=257) GLUCOSE RANDOM (BEAKER) 95 mg/dL 70-105 (test xzdc=626) CALCIUM (BEAKER) (test 9.6 mg/dL 8.4-10.2 kpsf=694) EGFR (BEAKER) (test 153 mL/min/1.73 sq m ESTIMATED GFR IS NOT pbsg=7124) ACCURATE CREATININE CLEARANCE IN PREDICTING GLOMERULAR FILTRATION RATE. ESTIMATED GFR IS NOT APPLICABLE FOR DIALYSIS PATIENTS. CBC W/PLT COUNT & AUTO [id number] 13:41:00 Test Item Value Reference Range Comments WHITE BLOOD CELL COUNT (BEAKER) (test tesj=109) 14.6 K/ L 3.5-10.5 RED BLOOD CELL COUNT (BEAKER) (test yuoy=177) 1.85 M/ L 3.93-5.22 HEMOGLOBIN (BEAKER) (test hcfx=387) 5.9 GM/DL 11.2-15.7 HEMATOCRIT (BEAKER) (test vthf=120) 18.5 % 34.1-44.9 MEAN CORPUSCULAR VOLUME (BEAKER) (test nnsg=916) 100.0 fL 79.4-94.8 MEAN CORPUSCULAR HEMOGLOBIN (BEAKER) (test 31.9 pg 25.6-32.2 ralc=866) MEAN CORPUSCULAR HEMOGLOBIN CONC (BEAKER) (test 31.9 GM/DL 32.2-35.5 mozn=279) RED CELL DISTRIBUTION WIDTH (BEAKER) (test 21.0 % 11.7-14.4 omfb=004) PLATELET COUNT (BEAKER) (test xvlw=274) 169 K/CU MM 150-450 MEAN PLATELET VOLUME (BEAKER) (test cpun=648) 12.1 fL 9.4-12.3 NUCLEATED RED BLOOD CELLS (BEAKER) (test 3 /100 WBC 0-0 xfiw=980) NEUTROPHILS RELATIVE PERCENT (BEAKER) (test 52 % zcsm=609) LYMPHOCYTES RELATIVE PERCENT (BEAKER) (test 28 % gkra=660) MONOCYTES RELATIVE PERCENT (BEAKER) (test 16 % kzox=353) EOSINOPHILS RELATIVE PERCENT (BEAKER) (test 4 % vfhx=742) BASOPHILS RELATIVE PERCENT (BEAKER) (test 0 % aoen=287) NEUTROPHILS ABSOLUTE COUNT (BEAKER) (test 7.50 K/ L 1.56-6.13 dksj=360) LYMPHOCYTES ABSOLUTE COUNT (BEAKER) (test 4.08 K/ L 1.18-3.74 dyqa=447) MONOCYTES ABSOLUTE COUNT (BEAKER) (test 2.34 K/ L 0.24-0.36 hdub=128) EOSINOPHILS ABSOLUTE COUNT (BEAKER) (test 0.56 K/ L 0.04-0.36 fozj=756) BASOPHILS ABSOLUTE COUNT (BEAKER) (test 0.02 K/ L 0.01-0.08 gujc=277) IMMATURE GRANULOCYTES-RELATIVE PERCENT (BEAKER) 0 % 0-1 (test bnnc=0504) (MANUAL DIFFERENTIAL)2017-05-29 13:41:00 Test Item Value Reference Range Comments TOTAL COUNTED (BEAKER) (test qbrk=3594) WBC MORPHOLOGY (BEAKER) (test cpkx=101) Normal PLT MORPHOLOGY (BEAKER) (test olmw=707) Normal POLYCHROMATOPHILLIC RBCS(BEAKER) (test qctl=256) 2+ moderate SICKLE CELLS (BEAKER) (test pndx=258) 1+ few TARGET CELLS (BEAKER) (test axnb=002) 2+ moderate BASIC METABOLIC [id number] 07:38:00 Test Item Value Reference Range Comments SODIUM (BEAKER) (test 140 meq/L 136-145 vhey=221) POTASSIUM (BEAKER) (test 3.9 meq/L 3.5-5.1 zgxx=292) CHLORIDE (BEAKER) (test 104 meq/L 98-107 tmed=772) CO2 (BEAKER) (test 28 meq/L 22-29 qydm=939) BLOOD UREA NITROGEN 8 mg/dL 7-21 (BEAKER) (test dlfw=920) CREATININE (BEAKER) (test 0.56 mg/dL 0.57-1.25 zzii=000) GLUCOSE RANDOM (BEAKER) 129 mg/dL 70-105 (test owqa=556) CALCIUM (BEAKER) (test 9.2 mg/dL 8.4-10.2 bttw=431) EGFR (BEAKER) (test 147 mL/min/1.73 sq m ESTIMATED GFR IS NOT pejq=9860) ACCURATE CREATININE CLEARANCE IN PREDICTING GLOMERULAR FILTRATION RATE. ESTIMATED GFR IS NOT APPLICABLE FOR DIALYSIS PATIENTS. CBC W/PLT COUNT & AUTO [id number] 15:40:00 Test Item Value Reference Range Comments WHITE BLOOD CELL COUNT (BEAKER) (test ecah=802) 15.5 K/ L 3.5-10.5 RED BLOOD CELL COUNT (BEAKER) (test dqvn=771) 2.13 M/ L 3.93-5.22 HEMOGLOBIN (BEAKER) (test emos=627) 6.8 GM/DL 11.2-15.7 HEMATOCRIT (BEAKER) (test yftp=638) 21.1 % 34.1-44.9 MEAN CORPUSCULAR VOLUME (BEAKER) (test hjoq=199) 99.1 fL 79.4-94.8 MEAN CORPUSCULAR HEMOGLOBIN (BEAKER) (test 31.9 pg 25.6-32.2 btrl=887) MEAN CORPUSCULAR HEMOGLOBIN CONC (BEAKER) (test 32.2 GM/DL 32.2-35.5 dqjp=670) RED CELL DISTRIBUTION WIDTH (BEAKER) (test 20.8 % 11.7-14.4 nnso=679) PLATELET COUNT (BEAKER) (test myjl=715) 178 K/CU MM 150-450 MEAN PLATELET VOLUME (BEAKER) (test nifb=883) 11.9 fL 9.4-12.3 NUCLEATED RED BLOOD CELLS (BEAKER) (test 2 /100 WBC 0-0 giya=295) NEUTROPHILS RELATIVE PERCENT (BEAKER) (test 47 % mcsh=629) LYMPHOCYTES RELATIVE PERCENT (BEAKER) (test 34 % jwgn=771) MONOCYTES RELATIVE PERCENT (BEAKER) (test 16 % enkv=360) EOSINOPHILS RELATIVE PERCENT (BEAKER) (test 3 % nkao=856) BASOPHILS RELATIVE PERCENT (BEAKER) (test 0 % owjo=560) NEUTROPHILS ABSOLUTE COUNT (BEAKER) (test 7.20 K/ L 1.56-6.13 ajki=596) LYMPHOCYTES ABSOLUTE COUNT (BEAKER) (test 5.22 K/ L 1.18-3.74 wqxv=134) MONOCYTES ABSOLUTE COUNT (BEAKER) (test 2.50 K/ L 0.24-0.36 ahfj=226) EOSINOPHILS ABSOLUTE COUNT (BEAKER) (test 0.48 K/ L 0.04-0.36 wort=750) BASOPHILS ABSOLUTE COUNT (BEAKER) (test 0.02 K/ L 0.01-0.08 zhhp=541) IMMATURE GRANULOCYTES-RELATIVE PERCENT (BEAKER) 1 % 0-1 (test fhom=1470) (MANUAL DIFFERENTIAL)2017-05-28 15:40:00 Test Item Value Reference Range Comments TOTAL COUNTED (BEAKER) (test pfft=2441) WBC MORPHOLOGY (BEAKER) (test oony=383) Normal PLT MORPHOLOGY (BEAKER) (test wvum=773) Normal ANISOCYTOSIS (BEAKER) (test soca=854) 2+ moderate POLYCHROMATOPHILLIC RBCS(BEAKER) (test rzeb=380) 2+ moderate SICKLE CELLS (BEAKER) (test sfyg=603) 1+ few TARGET CELLS (BEAKER) (test besn=938) 2+ moderate URINALYSIS W/ [id number] 15:13:00 Test Item Value Reference Range Comments COLOR (BEAKER) (test nobs=061) Yellow CLARITY (BEAKER) (test prqd=716) Clear SPECIFIC GRAVITY UA (BEAKER) (test fjdh=285) 1.008 1.001-1.035 PH UA (BEAKER) (test lfmo=507) 6.0 5.0-8.0 PROTEIN UA (BEAKER) (test ckqm=768) Negative Negative GLUCOSE UA (BEAKER) (test ktha=325) Negative Negative KETONES UA (BEAKER) (test wirr=743) Negative Negative BILIRUBIN UA (BEAKER) (test qjld=965) Negative Negative BLOOD UA (BEAKER) (test oiwf=315) Negative Negative NITRITE UA (BEAKER) (test gjpx=553) Negative Negative LEUKOCYTE ESTERASE UA (BEAKER) (test nxnd=564) Negative Negative UROBILINOGEN UA (BEAKER) (test dlmh=252) 0.2 mg/dL 0.2-1.0 RBC UA (BEAKER) (test hljj=927) < /HPF WBC UA (BEAKER) (test grdb=926) 2 /HPF MUCUS (BEAKER) (test khlc=6528) Rare SQUAMOUS EPITHELIAL (BEAKER) (test limh=747) 5 /HPF SOURCE(BEAKER) (test fggh=7047) Urine, Voided BASIC METABOLIC [id number] 06:26:00 Test Item Value Reference Range Comments SODIUM (BEAKER) (test 139 meq/L 136-145 nvkb=619) POTASSIUM (BEAKER) (test 3.8 meq/L 3.5-5.1 dbpe=327) CHLORIDE (BEAKER) (test 104 meq/L 98-107 ptdj=033) CO2 (BEAKER) (test 30 meq/L 22-29 opvc=818) BLOOD UREA NITROGEN 6 mg/dL 7-21 (BEAKER) (test spqs=834) CREATININE (BEAKER) (test 0.56 mg/dL 0.57-1.25 pujb=461) GLUCOSE RANDOM (BEAKER) 102 mg/dL 70-105 (test dbtg=426) CALCIUM (BEAKER) (test 9.0 mg/dL 8.4-10.2 tjxn=039) EGFR (BEAKER) (test 147 mL/min/1.73 sq m ESTIMATED GFR IS NOT cufk=7571) ACCURATE CREATININE CLEARANCE IN PREDICTING GLOMERULAR FILTRATION RATE. ESTIMATED GFR IS NOT APPLICABLE FOR DIALYSIS PATIENTS.
[2018-01-29 08:22] LABS: Barbiturates NEGATIVE (NEGATIVE); Benzodiazepines POSITIVE (NEGATIVE); Cocaine POSITIVE (NEGATIVE); METHAMPHETAM NEGATIVE (NEGATIVE); Opiates NEGATIVE (NEGATIVE); Phencyclidine NEGATIVE (NEGATIVE); THC Cannibis NEGATIVE (NEGATIVE)
[2018-01-29] MEDS ORDERED: NA CHLORIDE 0.9% 1,000 ML ONE ×2 (08:38)
[2018-01-29] MEDS ORDERED: FOLIC ACID 1 MG in NA CHLORIDE 0.9% 50 ML IV ONE (08:45)
[2018-01-29 08:53] LABS: Protime INR 1.13
[2018-01-29 08:55] LABS: Bicarbonate 26 mEq/L (21-31); Glucose Level 126 mg/dL (65-120); Lipase 30 U/L (22-51); Potassium 3.3 mEq/L (3.6-5.0); Sodium Level 137 mEq/L (135-145)
[2018-01-29 09:01] LABS: ALT/SGPT 64 IU/L (10-60); AST/SGOT 92 IU/L (10-42); Albumin 3.4 g/dL (3.2-5.5); Alkaline Phosphatase 192 IU/L (42-121); BUN Blood Urea Nitrogen 12 mg/dL (6-20); Bilirubin Direct 0.5 mg/dL (0-0.2); Bilirubin Total 1.6 mg/dL (0.3-1.2); Creatine Phosphokinase 8 IU/L (22-269); Magnesium 1.8 mg/dL (1.8-2.5); Protein, Total 9.2 g/dL (6.0-8.3)
[2018-01-29 09:02] LABS: CKMB Creatine Kinase MB 0.5 ng/ml (0.3-4.0)
[2018-01-29 09:03] LABS: MCH 33.3 pg (27.0-35.0); MCV 104.2 fL (80-100); MPV 8.8 fL (7.6-11.3); RBC Red Blood Cell Count 1.63 M/uL (3.86-4.86)
[2018-01-29 09:21] LABS: Alcohol Serum/Plasma < 10 mg/dl
--- NOTE | 2018-01-29 09:24 | RAD REPORT ---
EXAM DESCRIPTION: Gonzalez Single View01/29/2018 8:37 am CLINICAL HISTORY: Cough COMPARISON: January 21, 2018 FINDINGS: The lungs appear clear of acute infiltrate. The heart is mildly to moderately enlarged. C entral venous catheter has its tip in the superior vena cava IMPRESSION: No acute abnormalities displayed
[2018-01-29] MEDS ORDERED: PROMETHAZINE 25 MG/ML VIAL ONE ×2 (09:31→10:59)
[2018-01-29] MEDS ORDERED: MEPERIDINE HCL 50 MG/ML AMP ONE ×2 (09:31→10:59)
[2018-01-29] MEDS ORDERED: DIPHENHYDRAMINE 50 MG/ML VIAL ONE ×2 (09:31→10:59)
[2018-01-29 09:54] LABS: Anisocytosis 3+; Blood Morphology Comment NOTED (NOT SEEN); Hypochromasia 2+; Macrocytosis 1+; Platelet Estimate ADEQ; Poikilocytosis 1+
[2018-01-29 09:55] LABS: Elliptocytes 1+; Howell-Jolly Bodies NOTED
[2018-01-29 10:05] LABS: Urine Blood 2+ (NEG); Urine Glucose NEGATIVE (NEG); Urine Protein 1+ (NEG); Urine Specific Gravity <1.005 (1.005-1.030)
--- NOTE | 2018-01-29 10:43 | ER ---
Nurse's Notes [facility] Name: Brennon Berg Age: 37 yrs Sex: Female : 1980 Arrival Date: 01/29/2018 Time: 07:35 Bed 14 Private MD: Adama Rod E Diagnosis: Sickle-cell/Hb-C disease with crisis;Anemia, unspecified;Cocaine abuse;Hypokalemia Presentation: 01/29 07:40 Presenting complaint: Patient states: Her body hurts all over. Transition of care: rb1 patient was not received from another setting of care. Onset of symptoms was January 28, 2018. Risk Assessment: Do you want to hurt yourself or someone else? Patient reports no desire to harm self or others. Initial Sepsis Screen: Does the patient meet any 2 criteria? No. Patient's initial sepsis screen is negative. Does the patient have a suspected source of infection? No. Patient's initial sepsis screen is negative. Care prior to arrival: None. 07:40 Method Of Arrival: Ambulatory [facility] 07:40 Acuity: TEMI 3 rb1 Triage Assessment: 07:40 General: Appears in no apparent distress. comfortable, Behavior is calm, cooperative, rb1 drowsy. Pain: Complains of pain in generalized Pain currently is 10 out of 10 on a pain scale. Neuro: Level of Consciousness is awake, alert, obeys commands, Oriented to person, place, time, situation. Cardiovascular: Capillary refill < 3 seconds is brisk in bilateral fingers. Respiratory: Airway is patent Respiratory effort is even, unlabored, Respiratory pattern is regular, symmetrical. GI: Reports diarrhea, nausea, vomiting. : No signs and/or symptoms were reported regarding the genitourinary system. Derm: Skin is dry, Skin is normal, Skin temperature is warm. Musculoskeletal: Range of motion: limited in left hand. 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 N/A - Hysterectomy rb1 Historical: - Allergies: 07:40 Fentanyl; rb1 07:40 Morphine; rb1 07:40 Reglan; rb1 07:40 Stadol; rb1 07:40 Toradol; rb1 07:40 tramadol; rb1 07:40 Trazodone; rb1 07:40 Ultram; rb1 07:40 Zofran; rb1 - Home Meds: 07:40 gabapentin 300 mg Oral cap 1 cap 3 times per day [Active]; Hydrea 500 mg Oral cap TID rb1 [Active]; hydrocodone-acetaminophen 2.5-500 mg Oral tab 1 tab every 4 hours [Active]; hydroxyurea 500 mg Oral cap 1 cap every 3 days [Active]; Keppra 250 mg Oral tab 1 tabs 2 times per day [Active]; Promethazine Oral [Active]; Xanax 2 mg Oral tab 3 times per day [Active]; - PMHx: 07:40 aplastic anemia; CVA; Myocardial infarction; Seizures; Sickle Cell; rb1 - PSHx: 07:40 Hysterectomy; ; splenectomy; Cholecystectomy; rb1 - Immunization history:: Adult Immunizations up to date. - Social history:: Smoking status: Patient/guardian denies using tobacco. - Ebola Screening: : Patient negative for fever greater than or equal to 101.5 degrees Fahrenheit, and additional compatible Ebola Virus Disease symptoms Patient denies travel to an Ebola-affected area in the 21 days before illness onset. Screenin:40 Abuse screen: Denies threats or abuse. Nutritional screening: No deficits noted. rb1 Tuberculosis screening: No symptoms or risk factors identified. Fall Risk None identified. Assessment: 07:40 General: See triage assessment. rb1 08:30 Reassessment: Patient appears in no apparent distress at this time. No changes from rb1 previously documented assessment. 09:30 Reassessment: Patient appears in no apparent distress at this time. Patient and/or rb1 family updated on plan of care and expected duration. Pain level reassessed. Patient is alert, oriented x 3, equal unlabored respirations, skin warm/dry/pink. 10:30 Reassessment: Patient appears in no apparent distress at this time. Patient and/or rb1 family updated on plan of care and expected duration. Pain level reassessed. Patient is alert, oriented x 3, equal unlabored respirations, skin warm/dry/pink. pt. requesting more pain medication; provider notified. 11:28 Reassessment: Patient appears in no apparent distress at this time. No changes from rb1 previously documented assessment. 11:58 Reassessment: Called report to NIKKI Osuna at [facility]. Information from the SBAR was rb1 given. All questions asked and answered. 12:27 Reassessment: Pt. is resting with eyes closed, respirations are even, unlabored. Call rb1 light within reach. Vital Signs: 07:40 BP 132 / 86; Pulse 103; Resp 17; Temp 97.8(O); Pulse Ox 98% on R/A; Weight 68.95 kg rb1 (R); Height 5 ft. 3 in. (160.02 cm) (R); Pain 10/10; 09:09 BP 136 / 109; Pulse 95; Resp 16; Pulse Ox 100% on 2 lpm NC; mh5 10:28 BP 143 / 95; Pulse 84; Resp 16; Pulse Ox 98% on 2 lpm NC; mh5 11:22 BP 120 / 88; Pulse 79; Resp 19; Pulse Ox 99% on R/A; rb1 12:20 BP 112 / 85; Pulse 81; Resp 19; Pulse Ox 100% on R/A; rb1 07:40 Body Mass Index 26.93 (68.95 kg, 160.02 cm) [facility] ED Course: 07:35 Patient arrived in ED. sb2 07:35 Adama Rod MD is Private Physician. sb2 07:40 Arm band placed on right wrist. rb1 07:40 Patient has correct armband on for positive identification. Placed in gown. Bed in low rb1 position. Call light in reach. Side rails up X 1. Pulse ox on. NIBP on. Warm blanket given. 07:41 Joann Priest, RN is Primary Nurse. rb1 07:44 Spenser Luis MD is Attending Physician. [facility] 08:00 Triage completed. rb1 08:20 Inserted Port A Cath. rb1 08:21 Urine --Ancillary (enter results) Sent. mh5 08:21 Urine Dipstick--Ancillary (enter results) Sent. mh5 08:22 Urine Drug Screen Sent. mh5 08:22 Urine collected: clean catch specimen, agnieszka colored. 5 08:35 X-ray completed. Portable x-ray completed in exam room. Patient tolerated procedure jb2 well. 08:35 XRAY Chest (1 view) In Process Unspecified. EDMS 12:48 No provider procedures requiring assistance completed. Patient transferred, IV remains rb1 in place. Administered Medications: 08:25 Drug: NS 0.9% 1000 ml Route: IV; Rate: 1 bolus; Site: Port-a-cath; rb1 10:08 Follow up: IV Status: Completed infusion rb1 09:00 Drug: foLIC Acid 1 mg Route: IVPB; Site: Port-a-cath; rb1 09:30 Follow up: Response: No adverse reaction; IV Status: Completed infusion rb1 09:41 Drug: Benadryl 25 mg Route: IVP; Site: Port-a-cath; rb1 10:00 Follow up: Response: No adverse reaction rb1 09:42 Drug: Demerol 50 mg Route: IVP; Site: Port-a-cath; rb1 10:00 Follow up: Response: No adverse reaction; Pain is decreased rb1 09:42 Drug: Phenergan 12.5 mg Route: IVP; Site: Port-a-cath; rb1 10:00 Follow up: Response: No adverse reaction rb1 10:10 Drug: NS 0.9% 1000 ml Route: IV; Rate: 125 ml/hr; Site: Port-a-cath; rb1 11:00 Drug: Potassium Chloride 20 mEq Route: PO; rb1 11:29 Follow up: Response: No adverse reaction rb1 11:00 Drug: Rocephin - (cefTRIAXone) 1 grams Route: IVPB; Infused Over: 30 mins; Site: [facility] Port-a-cath; 11:10 Drug: Demerol 25 mg Route: IVP; Site: Port-a-cath; rb1 11:29 Follow up: Response: No adverse reaction; Pain is decreased rb1 11:11 Drug: Phenergan 12.5 mg Route: IVP; Site: Port-a-cath; rb1 11:29 Follow up: Response: No adverse reaction; Nausea is decreased rb1 11:11 Drug: Benadryl 25 mg Route: IVP; Site: Port-a-cath; rb1 11:29 Follow up: Response: No adverse reaction rb1 Outcome: 10:43 ER care complete, transfer ordered by MD. bo 12:48 Patient left the ED. rb1 12:48 Transferred by ground EMS to [facility], Transfer form completed. rb1 12:48 Condition: stable 12:48 Instructed on the need for transfer. Signatures: Dispatcher [employer] Spenser Joy MD MD cha Buechter, Jesse jb2 Joann Priest RN RN rb1 Yohana Childers 5 Jazmin Lacy2 Corrections: (The following items were deleted from the chart) 19:21 13:02 Patient left the ED. rb1 rb1
--- NOTE | 2018-01-29 10:44 | EDPHYS ---
Physician Documentation [facility] Name: Brennon Berg Age: 37 yrs Sex: Female : 1980 Arrival Date: 01/29/2018 Time: 07:35 Bed 14 Private MD: Adama Rod E ED Physician Spenser Luis HPI: 01/29 09:22 This 37 yrs old Black Female presents to ER via Ambulatory with complaints of Sickle anupam Cell Crisis. 09:22 pain all over. Onset: The symptoms/episode began/occurred 3 day(s) ago. Severity of anupam symptoms: At their worst the symptoms were moderate in the emergency department the symptoms are unchanged. The patient has not experienced similar symptoms in the past. 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 - Hysterectomy rb1 Historical: - Allergies: 07:40 Fentanyl; rb1 07:40 Morphine; rb1 07:40 Reglan; rb1 07:40 Stadol; rb1 07:40 Toradol; rb1 07:40 tramadol; rb1 07:40 Trazodone; rb1 07:40 Ultram; rb1 07:40 Zofran; rb1 - Home Meds: 07:40 gabapentin 300 mg Oral cap 1 cap 3 times per day [Active]; Hydrea 500 mg Oral cap TID rb1 [Active]; hydrocodone-acetaminophen 2.5-500 mg Oral tab 1 tab every 4 hours [Active]; hydroxyurea 500 mg Oral cap 1 cap every 3 days [Active]; Keppra 250 mg Oral tab 1 tabs 2 times per day [Active]; Promethazine Oral [Active]; Xanax 2 mg Oral tab 3 times per day [Active]; - PMHx: 07:40 aplastic anemia; CVA; Myocardial infarction; Seizures; Sickle Cell; rb1 - PSHx: 07:40 Hysterectomy; ; splenectomy; Cholecystectomy; rb1 - Immunization history:: Adult Immunizations up to date. - Social history:: Smoking status: Patient/guardian denies using tobacco. - Ebola Screening: : Patient negative for fever greater than or equal to 101.5 degrees Fahrenheit, and additional compatible Ebola Virus Disease symptoms Patient denies travel to an Ebola-affected area in the 21 days before illness onset. ROS: 09:22 Constitutional: Negative for fever, chills, and weight loss, Eyes: Negative for injury, anupam pain, redness, and discharge, ENT: Negative for injury, pain, and discharge, Neck: Negative for injury, pain, and swelling, Cardiovascular: Negative for chest pain, palpitations, and edema, Respiratory: Negative for shortness of breath, cough, wheezing, and pleuritic chest pain, Abdomen/GI: Negative for abdominal pain, nausea, vomiting, diarrhea, and constipation, Back: Negative for injury and pain, : Negative for injury, bleeding, discharge, and swelling, MS/Extremity: Negative for injury and deformity, Skin: Negative for injury, rash, and discoloration, Neuro: Negative for headache, weakness, numbness, tingling, and seizure, Psych: Negative for depression, anxiety, suicide ideation, homicidal ideation, and hallucinations, Allergy/Immunology: Negative for hives, rash, and allergies, Endocrine: Negative for neck swelling, polydipsia, polyuria, polyphagia, and marked weight changes, Hematologic/Lymphatic: Negative for swollen nodes, abnormal bleeding, and unusual bruising. Exam: 09:22 Constitutional: This is a well developed, well nourished patient who is awake, alert, anupam and in no acute distress. Head/Face: Normocephalic, atraumatic. ENT: Nares patent. No nasal discharge, no septal abnormalities noted. Tympanic membranes are normal and external auditory canals are clear. Oropharynx with no redness, swelling, or masses, exudates, or evidence of obstruction, uvula midline. Mucous membranes moist. Neck: Trachea midline, no thyromegaly or masses palpated, and no cervical lymphadenopathy. Supple, full range of motion without nuchal rigidity, or vertebral point tenderness. No Meningismus. Chest/axilla: Normal chest wall appearance and motion. Nontender with no deformity. No lesions are appreciated. Cardiovascular: Regular rate and rhythm with a normal S1 and S2. No gallops, murmurs, or rubs. Normal PMI, no JVD. No pulse deficits. Respiratory: Lungs have equal breath sounds bilaterally, clear to auscultation and percussion. No rales, rhonchi or wheezes noted. No increased work of breathing, no retractions or nasal flaring. Abdomen/GI: Soft, non-tender, with normal bowel sounds. No distension or tympany. No guarding or rebound. No evidence of tenderness throughout. Back: No spinal tenderness. No costovertebral tenderness. Full range of motion. Skin: Warm, dry with normal turgor. Normal color with no rashes, no lesions, and no evidence of cellulitis. MS/ Extremity: Pulses equal, no cyanosis. Neurovascular intact. Full, normal range of motion. Neuro: Awake and alert, GCS 15, oriented to person, place, time, and situation. Cranial nerves II-XII grossly intact. Motor strength 5/5 in all extremities. Sensory grossly intact. Cerebellar exam normal. Normal gait. Psych: Awake, alert, with orientation to person, place and time. Behavior, mood, and affect are within normal limits. 09:22 Eyes: Sclera: icterus. Vital Signs: 07:40 BP 132 / 86; Pulse 103; Resp 17; Temp 97.8(O); Pulse Ox 98% on R/A; Weight 68.95 kg rb1 (R); Height 5 ft. 3 in. (160.02 cm) (R); Pain 10/10; 09:09 BP 136 / 109; Pulse 95; Resp 16; Pulse Ox 100% on 2 lpm NC; mh5 10:28 BP 143 / 95; Pulse 84; Resp 16; Pulse Ox 98% on 2 lpm NC; mh5 11:22 BP 120 / 88; Pulse 79; Resp 19; Pulse Ox 99% on R/A; rb1 12:20 BP 112 / 85; Pulse 81; Resp 19; Pulse Ox 100% on R/A; rb1 07:40 Body Mass Index 26.93 (68.95 kg, 160.02 cm) [facility] MDM: 07:44 Patient medically screened. [facility] 09:24 Data reviewed: vital signs, nurses notes, lab test result(s), EKG, radiologic studies, anupam plain films. 01/29 07:47 Order name: Basic Metabolic Panel; Complete Time: 10:38 [facility] 01/29 07:47 Order name: BNP; Complete Time: 10:38 [facility] 01/29 07:47 Order name: CBC with Diff; Complete Time: 10:38 [facility] 01/29 07:47 Order name: Ckmb; Complete Time: 10:38 [facility] 01/29 07:47 Order name: CPK; Complete Time: 10:38 [facility] 01/29 07:47 Order name: LFT's; Complete Time: 10:38 [facility] 01/29 07:47 Order name: Magnesium; Complete Time: 10:38 [facility] 01/29 07:47 Order name: PT-INR; Complete Time: 10:38 [facility] 01/29 07:47 Order name: Ptt, Activated; Complete Time: 10:38 [facility] 01/29 07:47 Order name: Troponin (emerg Dept Use Only); Complete Time: 10:38 [facility] 01/29 07:47 Order name: Lipase; Complete Time: 10:38 [facility] 01/29 07:47 Order name: Blood Culture Adult (2) [facility] 01/29 07:47 Order name: Retic Count; Complete Time: 10:38 [facility] 01/29 07:47 Order name: Type And Screen [facility] 01/29 07:47 Order name: XRAY Chest (1 view); Complete Time: 10:38 [facility] 01/29 07:47 Order name: Acetaminophen; Complete Time: 10:38 [facility] 01/29 07:47 Order name: ETOH Level; Complete Time: 10:38 [facility] 01/29 07:47 Order name: Salicylate; Complete Time: 10:38 [facility] 01/29 07:47 Order name: Urine Drug Screen; Complete Time: 10:38 [facility] 01/29 08:15 Order name: Urine Dipstick--Ancillary (enter results); Complete Time: 10:38 ag 01/29 08:15 Order name: Urine --Ancillary (enter results); Complete Time: 10:38 ag 01/29 09:33 Order name: Manual Differential; Complete Time: 10:38 [facility] 01/29 09:37 Order name: Bb Add On ag 01/29 10:02 Order name: Antibody Identification [facility] 01/29 10:58 Order name: ANTIBODY CONSULTATION [facility] 01/29 07:47 Order name: Urine Test (obtain specimen); Complete Time: 08:22 [facility] 01/29 07:47 Order name: EKG; Complete Time: 07:48 [facility] 01/29 07:47 Order name: Cardiac monitoring; Complete Time: 11:17 [facility] 01/29 07:47 Order name: EKG - Nurse/Tech; Complete Time: 11:25 [facility] 01/29 07:47 Order name: IV Saline Lock; Complete Time: 11:17 [facility] 01/29 07:47 Order name: Labs collected and sent; Complete Time: 11:17 [facility] 01/29 07:47 Order name: O2 Per Protocol; Complete Time: 11:17 [facility] 01/29 07:47 Order name: O2 Sat Monitoring; Complete Time: 11:17 [facility] 01/29 07:47 Order name: Urine Dipstick-Ancillary (obtain specimen); Complete Time: 08:22 [facility] 01/29 11:34 Order name: Diet Regular; Complete Time: 11:34 rb1 Administered Medications: 08:25 Drug: NS 0.9% 1000 ml Route: IV; Rate: 1 bolus; Site: Port-a-cath; rb1 10:08 Follow up: IV Status: Completed infusion rb1 09:00 Drug: foLIC Acid 1 mg Route: IVPB; Site: Port-a-cath; rb1 09:30 Follow up: Response: No adverse reaction; IV Status: Completed infusion rb1 09:41 Drug: Benadryl 25 mg Route: IVP; Site: Port-a-cath; rb1 10:00 Follow up: Response: No adverse reaction rb1 09:42 Drug: Demerol 50 mg Route: IVP; Site: Port-a-cath; rb1 10:00 Follow up: Response: No adverse reaction; Pain is decreased rb1 09:42 Drug: Phenergan 12.5 mg Route: IVP; Site: Port-a-cath; rb1 10:00 Follow up: Response: No adverse reaction rb1 10:10 Drug: NS 0.9% 1000 ml Route: IV; Rate: 125 ml/hr; Site: Port-a-cath; rb1 11:00 Drug: Potassium Chloride 20 mEq Route: PO; rb1 11:29 Follow up: Response: No adverse reaction rb1 11:00 Drug: Rocephin - (cefTRIAXone) 1 grams Route: IVPB; Infused Over: 30 mins; Site: [facility] Port-a-cath; 11:10 Drug: Demerol 25 mg Route: IVP; Site: Port-a-cath; rb1 11:29 Follow up: Response: No adverse reaction; Pain is decreased rb1 11:11 Drug: Phenergan 12.5 mg Route: IVP; Site: Port-a-cath; rb1 11:29 Follow up: Response: No adverse reaction; Nausea is decreased rb1 11:11 Drug: Benadryl 25 mg Route: IVP; Site: Port-a-cath; rb1 11:29 Follow up: Response: No adverse reaction rb1 Disposition: 01/29/18 10:43 Transfer ordered to [facility]. Diagnosis are Sickle-cell/Hb-C disease with crisis, Anemia, unspecified, Cocaine abuse, Hypokalemia. - Reason for transfer: Higher level of care. - Accepting physician is to [facility]. - Condition is Stable. - Problem is new. - Symptoms have improved. Signatures: Dispatcher [employer] EDSpenser Vazquez MD MD cha Barber, Rebecca RN RN rb1 Corrections: (The following items were deleted from the chart) 13:02 10:43 01/29/2018 10:43 Transfer ordered to [facility]. Diagnosis is rb1 Sickle-cell/Hb-C disease with crisis; Anemia, unspecified; Cocaine abuse; Hypokalemia. Reason for transfer: Higher level of care. Accepting physician is to [facility]. Condition is Stable. Problem is new. Symptoms have improved. anupam
[2018-01-29] MEDS ORDERED: CEFTRIAXONE/SWI 1gm 1 GM/10 ML SYR ONE (10:58)
[2018-01-29] MEDS ORDERED: POTASSIUM CL SA 10 MEQ TAB PO ONE (10:58)
[2018-01-29 13:10] VITALS: TEMP 97.8
[2018-01-29 13:12] VITALS: BP 143/95; O2SAT 98
--- NOTE | 2018-01-29 14:42 | EKG ---
Test Date: 2018-01-29 Test Time: 08:35:03 Equipment Validation Engineer: ALLISON MEASUREMENT RESULTS: Intervals: Rate: 87 OK: 184 QRSD: 86 QT: 400 QTc: 481 [place]: P: 47 OK: 184 QRS: 21 T: 34 INTERPRETIVE STATEMENTS: Normal sinus rhythm Prolonged QT Abnormal ECG Compared to ECG 01/21/2018 18:05:45 No significant changes Electronically Signed On 01-29-18 14:40:04 CDT by Ronan Ojeda
== END 2018-01-29 13:02 | disposition short-term general hospital (02) ==
LOC: ER 07:31
DX: D57.219 Sickle-cell/Hb-C disease with crisis, unspecified (principal); D61.9 Aplastic anemia, unspecified; E87.6 Hypokalemia; F14.10 Cocaine abuse, uncomplicated; G40.909 Epilepsy, unspecified, not intractable, without status epilepticus; Z88.5 Allergy status to narcotic agent; Z88.6 Allergy status to analgesic agent; Z88.8 Allergy status to other drugs, medicaments and biological substances
CPT/HCPCS: 36415; 71045; 80048; 80076; 80307 ×8; 80320; 80329 ×2; 81003; 81025; 82550; 82553; 83690; 83735; 83880; 84484; 85025; 85044; 85610; 85730; 86850; 86870; 86900; 86901; 87040 ×2; 93005; J0696; J2175 ×2; J2550 ×2; J7030 ×2; 96361; 96365; 96375; 99285

== ENCOUNTER 2018-02-26 01:47 | Emergency (ER) | payer OTHER ==
--- OUTSIDE RECORDS SUMMARY | 2018-02-26 01:50 | XMS REPORT | Clinical Summary ---
:[address] [facility] Address [address] [place] [address] Phone Care Team Providers Name Role Phone Unavailable Primary Care Provider Unavailable Allergies Active Allergy Reactions Severity Noted Date Comments Tramadol Other (See Comments) High 02/21/2014 Seizure Morphine Other (See Comments) 11/27/2013 seizures Butorphanol Tartrate Other (See Comments) 11/27/2013 seizures Mbv-Hk-Dpf-Wwwsijfh-Jxzye-Nzne 10/01/2014 seizure Ketorolac Other (See Comments) 11/27/2013 seizures Trazodone 10/01/2014 seizure Ondansetron Hcl (Pf) Other (See Comments) 11/27/2013 seizures Current Medications Prescription Sig. Disp. Refills Start Date End Date Status folic acid Take 1 mg by Active (FOLVITE) 1 MG mouth daily. tablet hydroxyurea Take 500 mg by Active (DROXIA) 500 mg mouth 3 (three) capsule times daily . ALPRAZolam (XANAX) Take 2 mg by Active 2 MG tablet mouth 3 (three) times daily as needed for Sleep . promethazine Take 25 mg by Active (PHENERGAN) 25 MG mouth every 6 tablet (six) hours as needed for Nausea. HYDROcodone-acetami Take 2 tablets Active nophen (NORCO by mouth every 10-325) 10-325 mg 4 (four) hours per as needed for tabletIndications: Pain. Pain mirtazapine Take 45 mg by Active (REMERON) 45 MG mouth nightly. tabletIndications: major depressive disorder levETIRAcetam Take 250 mg by Active (KEPPRA) 250 MG mouth 2 (two) tabletIndications: times daily. Partial Epilepsy Treatment Adjunct triamcinolone Apply topically Active (KENALOG) 0.1 % 3 (three) times lotionIndications: daily. Contact Dermatitis, Skin Rash metoprolol Take 25 mg by Discontinued (LOPRESSOR) 25 MG mouth 3 (three) 8 tablet times daily. oxymorphone (OPANA Take 40 mg by Discontinued ER) 40 MG 12 hr mouth every 12 8 tablet (twelve) hours. amLODIPine Take 5 mg by Discontinued (NORVASC) 5 MG mouth daily. 8 tablet aspirin 81 MG Take 1 tablet 30 tablet 11 04/06/2016 chewable tablet (81 mg total) 7 by mouth daily. atorvastatin Take 1 tablet 30 tablet 11 04/06/2016 (LIPITOR) 80 MG (80 mg total) 7 tablet by mouth nightly. 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 (FORM[facility]);Total Mary, Deisy body pain MD Neal Sood Shamoon, MD 11/22/2017 Procedure Pass 11/22/2017 Surgery Manny Funetes MD 11/04/2017 - Hospital Encounter Oncology Lise De Jesus MD 11/26/2017 Vipul Mcgovern MD 09/26/2017 Procedure visit Oncology Kwesi Guaman Symptomatic anemia MD Justin (Primary Dx) Yaz Quan RN 09/25/2017 Procedure visit Oncology Kwesi Guaman 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) (Primary Traci Obregon RN Dx) 05/27/2017 - Hospital Encounter Oncology Lise De Jesus MD History of drug abuse 06/06/2017 05/04/2017 Procedure visit Oncology Kwesi Guaman Symptomatic anemia MD Justin (Primary Dx) Traci Obregon RN 05/03/2017 Procedure visit Oncology Kwesi Guaman Iron overload due to MD Justin repeated red blood Traci Obregon, RN cell transfusions (Primary Dx) 03/28/2017 Procedure visit Oncology Kwesi Guaman 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) (Primary Yaz Quan, Dx) RN 03/27/2017 Procedure visit Oncology Kwesi Guaman 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) (Primary Traci Obregon, RN Dx) after 02/25/2017 Family History Medical History Relation Name Comments Heart disease Father Hypertension Father Hypertension Mother Relation Name Status Comments Father Mother Social History Tobacco Use Types Packs/Day Years Used Date Never Smoker Smokeless Tobacco: Never Used Alcohol Use Drinks/Week oz/Week Comments No Sex Assigned at Date Recorded Not on file Last Filed Vital Signs Vital Sign Reading Time Taken Blood Pressure 116/59 02/08/2018 3:57 PM CDT Pulse 92 02/08/2018 3:57 PM CDT Temperature 36.6 C (97.9 F) 02/08/2018 3:57 PM CDT Respiratory Rate 18 02/08/2018 3:57 PM CDT Oxygen Saturation 93% 02/08/2018 3:57 PM CDT Inhaled Oxygen Concentration - - Weight 68.9 kg (152 lb) 01/29/2018 3:19 PM CDT Height 160 cm (5' 3") 01/29/2018 3:19 PM CDT Body Mass Index 26.93 01/29/2018 3:19 PM CDT Plan of Treatment Health Maintenance Due Date Last Done Comments INFLUENZA VACCINE 05/20/2018 Procedures Procedure Name Priority Date/Time Associated Diagnosis Comments R CATH 11/22/2017 1:14 PM CDT chest pain after 02/25/2017 Results EKG-SCANNED (02/11/2018 10:10 AM)Only the most recent of2 resultswithin the time period is included.Manual Differential (02/08/2018 5:03 AM)Only the most recent of9 resultswithin the time period is included. Component Value Ref Range % Neutros 66 % % Lymphs 22 % % Monos 8 % % Eos 3 % # Neutros 9.44 (H) 1.56 - 6.13 K/ul # Lymphs 3.15 1.18 - 3.74 K/ul # Monos 1.14 (H) 0.24 - 0.36 K/uL # Eos 0.43 (H) 0.04 - 0.36 K/uL Total Counted 100 nRBC (manual) 5 (H) 0 - 0 /100 WBC WBC Morphology Normal Platelet Morphology Normal Anisocytosis 2+ moderate Macrocytes 1+ few Target Cells 1+ few Sickle Cells 1+ few [place] Bodies 1+ few Artifact Present Platelet Conc Adequate Specimen Performing Laboratory Blood [place] [address] Narrative Received comment: User comments: Slide comments: CBC with platelet count + automated diff (02/08/2018 5:03 AM)Only the most recent of36 resultswithin the time period is included. Component Value Ref Range WBC 14.3 (H) 3.5 - 10.5 K/L RBC 2.54 (L) 3.93 - 5.22 M/L Hemoglobin 7.3 (L) 11.2 - 15.7 GM/DL Hematocrit 23.4 (L) 34.1 - 44.9 % MCV 92.1 79.4 - 94.8 fL MCH 28.7 25.6 - 32.2 pg MCHC 31.2 (L) 32.2 - 35.5 GM/DL RDW 21.4 (H) 11.7 - 14.4 % Platelets 239 150 - 450 K/CU MM MPV 11.0 9.4 - 12.3 fL nRBC 4 (H) 0 - 0 /100 WBC Specimen Performing Laboratory Blood - Central Venous Line [place] [id number] CBC with platelet count + automated diff (02/08/2018 5:03 AM)Only the most recent of36 resultswithin the time period is included. Specimen Performing Laboratory Blood - Central Venous Line Narrative The following orders were created for panel order CBC with platelet count + automated diff. Procedure Abnormality Status --------- ------ CBC with platelet count ...[[id number]]AbnormalFinal result Please view results for these tests on the individual orders. Basic Metabolic Panel (02/08/2018 5:03 AM)Only the most recent of37 resultswithin the time period is included. Component Value Ref Range Sodium 138 136 - 145 meq/L Potassium 5.9 (H) 3.5 - 5.1 meq/L Chloride 102 98 - 107 meq/L CO2 30 (H) 22 - 29 meq/L BUN 15 7 - 21 mg/dL Creatinine 0.68 0.57 - 1.25 mg/dL Glucose 87 70 - 105 mg/dL Calcium 9.6 8.4 - 10.2 mg/dL EGFR 117Comment: ESTIMATED GFR IS NOT ACCURATE mL/min/1.73 sq m CREATININE CLEARANCE IN PREDICTING GLOMERULAR FILTRATION RATE. ESTIMATED GFR IS NOT APPLICABLE FOR DIALYSIS PATIENTS. Specimen Performing Laboratory Blood - Central Venous Line [address] [address] Manual Differential (02/06/2018 5:58 AM)Only the most recent of17 resultswithin the time period is included. Component Value Ref Range % Neutros (manual) 64 % % Lymphs (manual) 22 % % Monos (manual) 8 % % Eos (manual) 6 % % Baso (manual) 0 % # Neutros (manual) 8.26 (H) 1.80 - 8.00 K/L # Lymphs (manual) 2.84 1.48 - 4.50 K/L # Monos (manual) 1.03 0.00 - 1.30 K/L # Eos (manual) 0.77 (H) 0.00 - 0.50 K/L # Baso (manual) 0.00 0.00 - 0.20 K/L Total Counted 100 nRBC (manual) 8 (H) 0 - 0 /100 WBC WBC Morphology Normal Platelet Morphology Normal Anisocytosis 2+ moderate Sickle Cells 2+ moderate Specimen Performing Laboratory Blood - Central Venous Line [address] [address] TRANSFUSION SERVICE REPORT - SCAN (02/05/2018 6:00 PM)Only the most recent of28 resultswithin the time period is included.Prepare Leuko-Red RBC (2017 11:54 PM)Only the most recent of9 resultswithin the time period is included. Component Value Ref Range Unit ABO O Pos UNIT NUMBER [id number] Status WORK IN PROGRESS Blood Bank Product RED BLOOD CELLS PRODUCT CODE P6020M64 Unit ABO O Pos UNIT NUMBER [id number] Status WORK IN PROGRESS Blood Bank Product RED BLOOD CELLS PRODUCT CODE U0528K69 CROSSMATCH COMPATIBLE Unit ABO O Pos UNIT NUMBER [id number] Status TRANSFUSED Blood Bank Product RED BLOOD CELLS PRODUCT CODE E0184O06 CROSSMATCH COMPATIBLE Unit ABO O Pos UNIT NUMBER [id number] Status TRANSFUSED Blood Bank Product RED BLOOD CELLS PRODUCT CODE [id number] Specimen Performing Laboratory Other [facility] [place] Transfuse Leuko-Red RBC (02/03/2018 10:59 PM)Only the most recent of16 resultswithin the time period is included.Type and screen, automated (2017 8:30 AM)Only the most recent of9 resultswithin the time period is included. Component Value Ref Range ABO/RH AUTOMATED (BEAKER) O POSITIVE Ab Scrn POSITIVEComment: Antibody identified within 7 days Specimen Performing Laboratory Blood [address] [address] Urinalysis w/Microscopic (02/01/2018 7:45 PM)Only the most recent of5 resultswithin the time period is included. Component Value Ref Range Color, UA Yellow Clarity, UA Hazy Specific [place], UA 1.009 1.001 - 1.035 pH, UA 5.5 5.0 - 8.0 Protein, UA 20 mg/dL (A) Negative Glucose, UA Negative Negative Ketones, UA Negative Negative Bilirubin, UA Negative Negative Blood, UA Small (A) Negative Nitrite, UA Negative Negative Leukocytes, UA Small (A) Negative Urobilinogen, UA 0.2 0.2 - 1.0 mg/dL RBC, UA 1 /HPF WBC, UA 4 /HPF Bacteria, UA Few Mucus Occasional Squam Epithel, UA 8 /HPF Specimen Source Urine, Voided Specimen Performing Laboratory Urine - Urine, Voided [address] [address] Antibody identification (01/30/2018 3:13 PM)Only the most recent of8 resultswithin the time period is included. Component Value Ref Range ANTIBODY ID (BEAKER) Anti-Bg Anti-Cw Anti-E Anti-S Anti-c COLD ANTIBODY UNID IgG WARM AUTO AB Antibody Consult SIGNED OUT Comment: Anti E, anti little c identified. Prior history of anti Cw, S, Bg, nonspecific IgG, cold and warm reacting antibodies. Transfuse E negative, little c negative, S negative, and Cw negative (if available) crossmatch compatible units.Electronic Signature: Kaushik Flores M.D. Specimen Performing Laboratory [facility] [place] Reticulocyte count (01/29/2018 4:28 PM) Component Value Ref Range % Retic >30.0 (H) 0.5 - 1.7 % Specimen Performing Laboratory Blood [address] [address] Lactate dehydrogenase (LDH) (01/29/2018 4:28 PM)Only the most recent of2 resultswithin the time period is included. Component Value Ref Range LDH 989 (H) 125 - 220 U/L Specimen Performing Laboratory [address] [address] Ferritin (01/29/2018 4:28 PM)Only the most recent of2 resultswithin the time period is included. Component Value Ref Range Ferritin [address] (H) 5 - 275 ng/mL Specimen Performing Laboratory [address] [address] CARDIAC CATH REPORT - SCAN (11/27/2017 8:52 PM)Calcium, Ionized (11/25/2017 4: 38 AM)Only the most recent of14 resultswithin the time period is included. Component Value Ref Range Calcium, Ion 1.10 (L) 1.12 - 1.27 mmol/L pH, Blood 7.30 Specimen Performing Laboratory [address] [address] Phosphorus (11/25/2017 4:38 AM)Only the most recent of15 resultswithin the time period is included. Component Value Ref Range Phosphorus 4.7 2.3 - 4.7 mg/dL Specimen Performing Laboratory [address] [address] Magnesium (11/25/2017 4:38 AM)Only the most recent of16 resultswithin the time period is included. Component Value Ref Range Magnesium 1.4 (L) 1.6 - 2.6 mg/dL Specimen Performing Laboratory Blood [address] [address] Uric acid (11/24/2017 5:36 AM) Component Value Ref Range Uric Acid 4.8 2.6 - 7.2 mg/dL Specimen Performing Laboratory Blood [address] [address] Creatine Kinase (CK) (11/24/2017 5:36 AM) Component Value Ref Range Total CK 8 (L) 29 - 200 U/L Specimen Performing Laboratory Blood [address] [address] Potassium (11/23/2017 5:35 PM)Only the most recent of3 resultswithin the time period is included. Component Value Ref Range Potassium 5.5 (H) 3.5 - 5.1 meq/L Specimen Performing Laboratory Blood - Central Venous Line [address] [address] Narrative Call if K > 5.4 to renal [phone] Electrolytes (11/22/2017 12:30 PM) Component Value Ref Range Sodium 137 136 - 145 meq/L Potassium 5.4 (H) 3.5 - 5.1 meq/L Chloride 100 98 - 107 meq/L CO2 30 (H) 22 - 29 meq/L Specimen Performing Laboratory Blood - Portacath [address] [address] Narrative Call results [phone] B-type Natriuretic Factor (BNP) (11/21/2017 4:56 AM)Only the most recent of3 resultswithin the time period is included. Component Value Ref Range BNP 120 (H) 0 - 100 pg/mL Specimen Performing Laboratory Blood [address] [address] Blood gas, venous (11/20/2017 6:44 AM) Component [...] FIO2 21.0 % Specimen Performing Laboratory Blood [address] [address] CBC (Hemogram only) (11/19/2017 6:25 AM) Component [...] Performing Laboratory Blood - Central Venous Line [address] [address] Hepatic function panel (11/17/2017 4:51 AM)Only the most recent of2 resultswithin [...] Performing Laboratory Blood - Central Venous Line [address] [address] Prepare RBC (11/16/2017 11:55 PM) Component Value Ref Range Unit ABO O Pos UNIT NUMBER [id number] Status TRANSFUSED Blood Bank Product RED BLOOD CELLS PRODUCT CODE [id number] Unit ABO O Pos UNIT NUMBER [id number] Status TRANSFUSED Blood Bank Product RED BLOOD CELLS PRODUCT CODE [id number] CROSSMATCH COMPATIBLE CROSSMATCH COMPATIBLE Specimen Performing Laboratory [...] MD Report Verified Date/Time:11/16/2017 10:47:19 Reading Location: [facility] Reading Room Procedure Note Interface, External [...] Report Verified Date/Time: 11/16/2017 10:47:19 Reading Location: [facility] Reading Room mandible less than 4 [...] MD Report Verified Date/Time:11/16/2017 12:28:43 Reading Location: [facility] Reading Room Procedure Note Interface, External [...] Report Verified Date/Time: 11/16/2017 12:28:43 Reading Location: [facility] Reading Room Anti-Mitochondrial Ab, reflex to titer (11/16/2017 9:35 AM) Component Value Ref Range Scan Result Specimen Performing Laboratory Blood - Central Venous Line [facility] [address] [address] Actin (Smooth Muscle) Antibody, IgG (11/16/2017 9:35 [...] - Central Venous Line [facility] [place] [id number] [place] [address] Narrative Performing Lab [facility] [address] [place] [address] Irwin Marquez MD, PhD AMARILYS Titer & Pattern (11/16/2017 9:35 AM) Component Value Ref Range AMARILYS Titer 1:160 AMARILYS Pattern Multiple nuclear dots pattern Specimen Performing Laboratory Blood - Central Venous Line [facility] [address] [place] [address] Hepatitis panel, acute (11/16/2017 9:35 AM) Component Value Ref Range Hep A IgM Nonreactive Nonreactive Hep B C IgM Nonreactive Nonreactive Hepatitis C Ab Nonreactive Nonreactive hepatitis B Surface Ag Nonreactive Nonreactive Specimen Performing Laboratory Blood - Central Venous Line [address] [address] Anti-Nuclear Antibody (AMARILYS) (11/16/2017 9:35 AM) Component Value Ref Range AMARILYS Positive (A) Negative Specimen Performing Laboratory Blood - Central Venous Line [address] [address] XR abdomen / KUB 1 view (11/15/2017 [...] MD Report Verified Date/Time:11/15/2017 12:43:04 Reading Location: [facility] Reading Room Procedure Note Interface, External [...] Report Verified Date/Time: 11/15/2017 12:43:04 Reading Location: [facility] Reading Room Endovaginal (11/15/2017 7:00 AM) Specimen Performing Laboratory [...] to further characterize right ovarian dermoid. Signed: Funmilyao Gonzalez MD Report Verified Date/Time:11/15/2017 09:03:15 Reading Location: [address] Ultrasound Reading Room Procedure Note Interface, [...] Report Verified Date/Time: 11/15/2017 09:03:15 Reading Location: [address] Ultrasound Reading Room Lipase (11/15/2017 5:30 AM) Component Value Ref Range Lipase 95 (H) 8 - 78 U/L Specimen Performing Laboratory Blood - Central Venous Line [address] [address] Urine culture (11/14/2017 6:19 AM)Only the most recent of2 resultswithin the time period is included. Component Value Ref Range Result >100,000 col/mL skin valentino Specimen Performing Laboratory Urine - Urine, Clean Catch [address] [address] Blood culture (11/13/2017 11:20 PM)Only the most recent of2 resultswithin the time period is included. Component Value Ref Range Result No growth in 5 days Specimen Performing Laboratory Blood - Portacath [address] [address] ECHOCARDIOGRAM REPORT - SCAN (11/10/2017 1:20 PM)Comprehensive [...] Performing Laboratory Blood - Central Venous Line [address] [address] 2D Echo W/Doppler(CW/PW/Color) (11/09/2017 6:46 PM) Component Value Ref Range Ejection Fraction Specimen Performing Laboratory [facility] MKCKESSON CPACS Narrative Transthoracic Echocardiography Report (TTE) Demographics Patient NameSMITH, ALEESHIADate of Study11/09/2017 DIANA Gender Female Visit [id number] Race Black [id number] [facility] Date [facility] 1980 [facility] Age 37 year(s) 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 Lou Price RDCS Interpreting [facility] Needs to [...] Study 11/09/2017 DIANA Gender Female Visit Number [id number] Race Black Room Number [id number] Number Date of 1980 Referring Neal Lezama Physician Age 37 year(s) 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 Lou Price RDCS Interpreting [facility] Needs to be Pre Physician Read Marlo Maldonaod MD Fellow VANNA Lorenzana Procedure Type of [...] bedside (11/08/2017 7:20 PM) Specimen Performing Laboratory [employer] Narrative FINAL REPORT EXAMINATION:AP PORTABLE CHEST RADIOGRAPH [...] MD Report Verified Date/Time:11/08/2017 20:41:24 Reading Location: [address] Reading Room Procedure Note Interface, External [...] Report Verified Date/Time: 11/08/2017 20:41:24 Reading Location: [address] Reading Room Sodium, random urine (11/08/2017 5:33 AM) Component Value Ref Range Sodium Urine 65 meq/L Specimen Performing Laboratory Urine - Urine, Voided [address] [address] Narrative Reference Range: No Normals Protein, random urine (11/08/2017 5:33 AM) Component Value Ref Range Protein, Urine 24 (H) 0 - 14 mg/dL Specimen Performing Laboratory Urine - Urine, Voided [address] [address] Creatinine, random urine (11/08/2017 5:33 AM) Component Value Ref Range Creatinine, Ur 46.0 mg/dL Specimen Performing Laboratory Urine - Urine, Voided [address] [address] Narrative Reference Range: No Normals Eosinophil smear (11/08/2017 5:33 AM) Component Value Ref Range Eosinophil Smear No EOS seen No EOS seen Specimen Performing Laboratory Urine - Urine, Voided [facility] [address] [place] [address] CT abdomen/pelvis without iv contrast (11/08/2017 3:01 [...] could represent a small fluid collection. Signed: Dmai Muniz MD Report Verified Date/Time:11/08/2017 08:29:54 Reading Location: [facility] Diagnostic Imaging Reading Room - [place] [address] Procedure Note Interface, External Ris In - [...] Report Verified Date/Time: 11/08/2017 08:29:54 Reading Location: [facility] Diagnostic Imaging Reading Room - [place] [address] abdomen complete (11/07/2017 7:27 PM)Only the [...] MD Report Verified Date/Time:11/07/2017 19:58:17 Reading Location: [facility] C013 Consult Reading Room Procedure Note Interface, External [...] Report Verified Date/Time: 11/07/2017 19:58:17 Reading Location: [address] Consult Reading Room Lactic acid, venous, whole blood (11/07/2017 3:32 PM) Component Value Ref Range Lactate, Venous 0.9Comment: Specimen slightly hemolyzed 0.5 - 2.2 mmol/L Specimen Performing Laboratory Blood [place] [address] Narrative Effective 12/22/2015: Units/Reference Range Change New: 0.5-2.2 mmol/LPrevious: 5-20 mg/dL ECG 12 lead (06/05/2017 8:52 PM) Specimen Performing Laboratory [facility] Narrative Ventricular Rate 80 BPM Atrial Rate 80 BPM P-R Interval 180 ms QRS Duration 76 ms Q-T Interval 394 ms QTC Calculation(Bazett) 454 ms P [place] 49 degrees R [place] 20 degrees T [place] 34 degrees Normal sinus rhythm Normal ECG When compared with ECG of 15-SEP-2016 00:53, No significant change was found Confirmed by Wade GARCIA BASANT ([id number]) on 06/07/2017 1:13:44 PM Procedure Note Interface, External Ris In - 06/07/2017 1:13 PM CDT Ventricular Rate 80 BPM Atrial Rate 80 BPM P-R Interval 180 ms QRS Duration 76 ms Q-T Interval 394 ms QTC Calculation(Bazett) 454 ms P [place] 49 degrees R [place] 20 degrees T [place] 34 degrees Normal sinus rhythm Normal ECG When compared with ECG of 15-SEP-2016 00:53, No significant change was found Confirmed by Wade GARCIA BASANT ([id number]) on 06/07/2017 1:13:44 PM Troponin I (06/05/2017 8:40 PM) Component Value Ref Range Troponin I <0.01 0.00 - 0.03 ng/mL Specimen Performing Laboratory Blood - Central Venous Line [address] [address] Narrative Troponin I (TnI) levels must be [...] Performing Laboratory Blood - Central Venous Line [address] [address] Narrative CK-MB Reference Range: <6.7Normal 6.7-10.0Borderline >10.0 Abnormal after 02/25/2017
--- OUTSIDE RECORDS SUMMARY | 2018-02-26 01:50 | XMS REPORT | Continuity of Care Document ---
:1980 Author Organization Interface Problems Problem Status Onset Classification Date Comments Source Date Reported SICKLE CELL CRISIS Active 09/08/[address] Final: 09/13/2014 [facility] Aplastic anemia Resolved Problem 09/13/2014 [facility] CVA - Resolved Problem 09/13/2014 [facility] Cerebrovascular [facility] Sickle cell anemia Resolved Problem 09/13/2014 [facility] TIA Resolved Problem 09/13/2014 [facility] HB-SS DISEASE W Active [facility] Medications Medication Details Route Status Patient Ordering Order Source Instructions Provider Date 12 HR Oxymorphone 30 mg=1 tab, Active [facility] Hydrochloride 30 PO, Q12H, 0 2014 Medical MG Extended Refill(s) Center Release Tablet [Opana] Lovenox 40 mg, 0.4 mL, No Longer [facility] Route: SUB-Q, Active 2014 Medical Drug form: INJ, Center [id number], Dosing Weight 70.591, kg, Start date: 09/10/14 19:00:00, Duration: 30 day, Stop date: 10/09/14 19:00:00Notes: (Same as: Lovenox) Promethazine 12.5 mg, 0.5 No Longer [facility] mL, Route: Active 2014 Medical IVPB, Drug Center form: INJ, Q4H, Dosing Weight 70.591, kg, PRN Nausea & Vomiting, Start date: 09/10/14 17:52:00, Duration: 30 day, Stop date: 10/10/14 17:51:00Notes: Do not give IV push. (Same as: Phenergan) Hydromorphone 15 mg, 30 mL, No Longer [facility] Route: IV, Active 2014 Medical Initial Loading Center Dose: 0.4mg, [employer] Dose: 0.2 mg, [employer] Lockout: 10 minutes, Continuous Basal Rate: 0 mg, 4 Hour Limit (In MG): 3, Drug Form: INJ, Continuous, Start date: 09/10/14 11:00:00, Duration: 30 day, Stop date: 10/10/14 10:...Notes: (Same as: Dilaudid) conc=0.5 mg/ml Hydromorphone [employer] Dose: ;Delay: ;Basal: Naloxone 0.04 mg, 0.1 No Longer [facility] mL, Route: IVP, Active 2014 Medical Drug form: INJ, Center Q2MIN, Dosing Weight 70.591, kg, PRN Narcotic Reversal, Start date: 09/10/14 10:58:00, Duration: 30 day, Stop date: 10/10/14 10:57:00Notes: Same as Narcan Naproxen 500 mg, 1 tab, No Longer [facility] Route: PO, Drug Active 2014 Medical form: TAB, BID, Center Dosing Weight 68.182, kg, Start date: 09/09/14 17:00:00, Duration: 30 day, Stop date: 10/09/14 9:00:00 Acetaminophen 650 mg, 2 tab, No Longer [facility] Route: PO, Drug Active 2014 Medical form: TAB, Q6H, Center Dosing Weight 68.182, kg, Start date: 09/09/14 12:00:00, Duration: 30 day, Stop date: 10/09/14 6:00:00Notes: Do not exceed 4 gm/day. (Same as: Tylenol) 1/2 NS 1000 mL 1,000 mL, Rate: No Longer [facility] 50 ml/hr, Active 2014 Medical Infuse over: 20 Center hr, Route: IV, Dosing Weight 68.182 kg, Total Volume: 1,000, Start date: 09/09/14 10:12:00, Duration: 30 day, Stop date: 10/09/14 10:11:00 Oxycodone 10 mg, 2 tab, No Longer [facility] Hydrochloride 5 Route: PO, Drug Active 2014 Medical MG Oral Tablet form: TAB, Q4H, Center Dosing Weight 68.182, kg, PRN Pain Score 6-10, Start date: 09/09/14 10:10:00, Duration: 30 day, Stop date: 10/09/14 10:09:00Notes: (Same as: Roxicodone) Opana ER 20 mg, 2 tab, No Longer [facility] Route: PO, Drug Active 2014 Medical form: ERTAB, Center Q12H, Start date: 09/09/14 10:00:00, Stop date: 10/09/14 9:00:00Notes: Same as: Opana ER oxyMORPHone 30 mg, Route: Inactive [facility] extended release PO, Q12H, 2014 Medical Dosing Weight Center 70, kg, Start date: 09/09/14 9:00:00, Duration: 30 day, Stop date: 10/08/14 21:00:00 Docusate 100 mg, 1 cap, No Longer [facility] Route: PO, Drug Active 2014 Medical form: CAP, BID, Center Dosing Weight 70, kg, Start date: 09/09/14 9:00:00, Duration: 30 day, Stop date: 10/08/14 17:00:00Notes: (Same as: Colace) (Do Not Crush) Dilaudid 0.5 mg, 0.25 No Longer [facility] mL, Route: IVP, Active 2014 Medical Drug form: INJ, Center Q3H, Dosing Weight 70, kg, PRN Pain, Priority: STAT, Start date: 09/09/14 5:14:00, Stop date: 10/09/14 5:00:00Notes: Same as: Dilaudid normal saline 1,000 mL, Rate: Inactive [facility] 0.9% IV 1,000 mL 125 ml/hr, 2014 Medical Infuse over: 8 Center hr, Route: IV, Dosing Weight 70 kg, Total Volume: 1,000, Priority: STAT, Start date: 09/09/14 5:13:00, Duration: 1 doses or times, Stop date: 09/09/14 13:12:00 Ondansetron 4 mg, Route: Inactive [facility] IVP, Q8H, 2014 Medical Dosing Weight Center 70, kg, PRN Nausea & Vomiting, Start date: 09/09/14 5:11:00, Duration: 30 day, Stop date: 10/09/14 5:10:00 Acetaminophen 325 1 tab, Route: Inactive [facility] MG / Hydrocodone PO, Drug Form: 2015 Medical Bitartrate 5 MG TAB, Dosing Center Oral Tablet Weight 70, kg, Q4H, PRN Pain Score 1-3, Start date: 09/09/14 5:11:00, Duration: 30 day, Stop date: 10/09/14 5:10:00 Sodium Chloride 1,000 mL, 1000 Inactive [facility] 0.154 MEQ/ML ml/hr, Infuse 2014 Medical Injectable Over: 1 hr, Center Solution Route: IV, 1,000, Drug form: INJ, ONCE, Priority: STAT, Dosing Weight 70 kg, Start date: 09/09/14 5:08:00, Duration: 1 doses or times, Stop date: 09/09/14 5:08:00 Dilaudid 2 mg, 1 mL, Inactive [facility] Route: IV, Drug 2014 Medical form: INJ, Center ONCE, Dosing Weight 70, kg, Start date: 09/09/14 5:02:00, Stop date: 09/09/14 5:02:00Notes: Same as: Dilaudid Phenergan 12.5 mg, 0.5 Inactive [facility] mL, Route: 2014 Medical IVPB, Drug Center form: INJ, ONCE, Dosing Weight 70, kg, Priority: STAT, Start date: 09/09/14 5:02:00, Stop date: 09/09/14 5:02:00Notes: Do not give IV push. (Same as: Phenergan) Benadryl 25 mg, Route: Inactive [facility] PO, Drug form: 2014 Medical CAP, ONCE, Center Dosing Weight 70, kg, Priority: STAT, Start date: 09/09/14 3:43:00, Stop date: 09/09/14 3:43:00 Dilaudid 2 mg, Route: Inactive [facility] IV, ONCE, 2014 Medical Dosing Weight Center 70, kg, Start date: 09/09/14 3:43:00, Stop date: 09/09/14 3:43:00 Diphenhydramine 1 appl, Route: Inactive [facility] Hydrochloride 20 TOP, ONCE, Drug 2015 Medical MG/ML Topical form: CRM, [place] Cream [Benadryl] Start date: 09/09/14 3:43:00, Stop date: 09/09/14 3:43:00 Phenergan 12.5 mg, Route: Inactive [place] IVPB, ONCE, 2014 Medical Dosing Weight Center 70, kg, Priority: STAT, Start date: 09/09/14 2:13:00, Stop date: 09/09/14 2:13:00 Dilaudid 2 mg, Route: Inactive [place] IV, ONCE, 2014 Medical Dosing Weight Center 70, kg, Start date: 09/09/14 2:13:00, Stop date: 09/09/14 2:13:00 Benadryl 25 mg, Route: No Longer [place] PO, ONCE, Active 2014 Medical Dosing Weight Center 70, kg, Start date: 09/08/14 23:41:00, Stop date: 09/08/14 23:41:00 Phenergan 25 mg, Route: No Longer [place] PO, ONCE, Active 2014 Medical Dosing Weight Center 70, kg, Priority: STAT, Start date: 09/08/14 23:41:00, Stop date: 09/08/14 23:41:00 Hydromorphone 2 mg, Route: No Longer [place] IVP, ONCE, Active 2014 Medical Dosing Weight Center 70, kg, Priority: STAT, Start date: 09/08/14 23:41:00, Stop date: 09/08/14 23:41:00 Saline Flush 0.9% 10 mL, Route: No Longer [place] IVP, Drug Form: Active 2014 Medical INJ, Dosing Center Weight 70, kg, PRN, PRN Line Flush, Start date: 09/08/14 23:41:00, Duration: 30 day, Stop date: 10/08/14 23:40:00Notes: Same as: BD Posiflush Sterile Allergies, Adverse Reactions, Alerts Substance Category Reaction Severity Reaction Status Date Comments Source type Reported morphine Assertion Drug Active [facility] Stadol Assertion Drug Active [facility] Toradol Assertion Drug Active [facility] traMADol Assertion Drug Active [facility] Zofran Assertion Drug Active [facility] Immunizations Immunization Date Given Site Status Last Updated Comments Source Results Order Name Results Value Reference Date Interpretation Comments Source Range CHEM PANEL LDH 507 unit/L 98 - 192 09/11 [facility] ELECTROLYTE AGAP 10.8 meq/L 10.0 - 09/11 [facility] S 20.0 [facility] ELECTROLYTE Calcium Lvl 8.4 mg/dL 8.5 - 10.5 09/11 [facility] ELECTROLYTE CO2 27 meq/L 24 - 32 09/11 [facility] ELECTROLYTE Chloride Lvl 108 meq/L 95 - 109 09/11 [facility] ELECTROLYTE eGFR 130 09/11 3Result Comment: The eGFR is calculated using the CKD-EPI formula. In most young, healthy individuals the eGFR will be > 90 mL/min/1.73m2. The eGFR declines with age. An eGFR of 60-89 may be normal in [facility] mL/min/1.73 some populations, particularly the elderly, for whom the CKD-EPI formula has not been extensively validated. Use of the eGFR is not recommended in the following populations: [place] [address] Center Individuals with unstable creatinine concentrations, including patients and those with serious co-morbid conditions. Patients with extremes in muscle mass or diet. The data above are obtained from the National Kidney Disease Education Program (NKDEP) which additionally recommends that when the eGFR is used in patients with extremes of body mass index for purposes of drug dosing, the eGFR should be multiplied by the estimated BMI. ELECTROLYTE BUN 4 mg/dL - 09/11 [facility] ELECTROLYTE Glucose Lvl 82 mg/dL 70 - 99 09/11 6Interpretive Data: Adult reference range values reflect the clinical guidelines [facility] of the [place] [employer]. [facility] ELECTROLYTE Sodium Lvl 142 meq/L 135 - 145 09/11 [facility] ELECTROLYTE Creatinine 0.7 mg/dL 0.5 - 1.4 09/11 [facility] ELECTROLYTE Potassium 3.8 meq/L 3.5 - 5.1 09/11 [facility] HEMATOLOGY Retic Auto 16.5 % 0.5 - 1.5 09/11 [facility] HEMATOLOGY RDW 25.5 % 11.5 - 09/11 [facility] 14. [facility] HEMATOLOGY MPV 8.6 fL 7.4 - 10.4 09/11 [facility] HEMATOLOGY Platelet 213 K/CMM 133 - 450 09/11 [place] /2014 [facility] HEMATOLOGY Hct 19.8 % 36.0 - 09/11 [place] 48.0 /2014 [facility] HEMATOLOGY Hgb 6.7 g/dL 12.0 - 09/11 9Result [place] 16.0 /2014 Comment: [facility] Result(s) called to Lexi Hendrix at 09/11/2014 03:23 by ORDAZ. Read back OK. HEMATOLOGY MCV 97.9 fL 80.0 - 09/11 [place] 98.0 /2014 [facility] HEMATOLOGY MCHC 34.0 g/dL 32.0 - 09/11 [place] 36.0 /2014 [facility] HEMATOLOGY MCH 33.3 pg 27.0 - 09/11 [place] 31.0 /2014 [facility] HEMATOLOGY WBC X 10x3 14.1 K/CMM 3.7 - 10.4 09/11 /2014 [facility] HEMATOLOGY RBC X 10x6 2.02 M/CMM 4.20 - 09/11 [place] 5.40 /2014 [facility] BLOOD BANK Antibody Positive 1 09/10 1Result Comment: 09/10/2014 09:24 [id number] [facility] RESULTS Scrn "Significant Findings of Positive Antibody Screen called to Magan Stinson at 0920 by SI. Read Back OK" Medical (09/10/14 8:01 AM) [place] BLOOD BANK ABO/Rh O POS 09/10 [place] RESULTS [facility] BLOOD BANK Path MEGHAN This 09/10 [facility] RESULTS patient Medical a positive [place] Direct Antiglobuli n Test (MEGHAN) with IgG detected on circulating RBC’s ; no complement fixation is noted. The eluate prepared from the RBCs is non-reactiv e. Positive MEGHAN may be seen in up to 16% of hospitalize d patients and be idiopathic in nature. It is also associated with various autoimmune disorders, hypergammag lobulinemia , certain malignancie s, and following administrat ion of specific medications . Clinical correlation is required. RBC's with a positive MEGHAN can be expected to have decreased in vivo survival. 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 The patient also has a history of anti-Cw, anti-S, and anti-Bga.Th e anti-E and anti-c are directed against the E and little c antigens of the Rh blood group system, respectivel y. The anti-S antibody is directed against the S antigen of the "MNS" blood group system. These antibodies are typically IgG in nature and form in response to RBC sensitizati on via prior and/or transfusion . They are considered clinically significant antibodies; they have been associated with both hemolytic disease of the and hemolytic transfusion reactions.Magan malik anti-Cw antibody is directed against an antigen of the "Rh" blood group system. It can be either IgM or IgG, naturally-o ccurring or formed as a result of RBC sensitizati on via prior transfusion . The anti-Cw antibody is considered a clinically significant antibody since it has been associated with hemolytic transfusion reactions.Magan malik patient also has a history of anti-Bg(a). Anti-Bg(a) antibody is directed against Bg(a), a low-inciden ce RBC-reactiv e HLA antigen, also known as HLA-B7. HLA antibodies are often found in patients who receive multiple transfusion s and multiparous women. Generally, the antibodies to these antigens are not considered clinically significant with regard to RBC transfusion therapy because hemolytic transfusion reactions are rarely encountered .Of note, the patient has a history of sickle cell disease. The MEGHAN is weakly positive with a negative eluate. Should RBC transfusion be required, crossmatch compatible units that are negative for the E, c, Cw, and S antigens will be issued. Difficulty in obtaining compatable units is expected since only approximate ly 6% of the donor population is negative for all four antigens.Th e patients electronic medical record has been reviewed for relevant information .I have reviewed the test results and concur with the resident's interpretat ion.CPT: 39364-[id number] BLOOD BANK HX Antigen Le(a) neg 09/10 RESULTS /2014 [facility] BLOOD BANK HX Antigen Jk(b) pos 09/10 RESULTS /2014 [facility] BLOOD BANK HX Antigen K neg 09/10 RESULTS /2014 [facility] BLOOD BANK HX Antigen Jk(a) pos 09/10 RESULTS /2014 [facility] BLOOD BANK HX Antigen Fy(b) neg 09/10 RESULTS /2014 [facility] Center BLOOD BANK HX Antigen Fy(a) pos 09/10 [place] RESULTS /2014 [facility] BLOOD BANK HX Antigen C pos 09/10 [place] RESULTS /2014 [facility] BLOOD BANK HX Antigen E neg 09/10 [place] RESULTS /2014 [facility] BLOOD BANK HX Antigen Cw neg 09/10 [place] RESULTS /2014 [facility] BLOOD BANK HX Antigen M pos 09/10 [place] RESULTS /2014 [facility] BLOOD BANK HX Antigen s pos 09/10 [place] RESULTS /2014 [facility] BLOOD BANK HX Antigen c neg 09/10 [place] RESULTS /2014 [facility] BLOOD BANK HX Antigen N neg 09/10 [place] RESULTS /2014 [facility] BLOOD BANK HX Antigen P1 pos 09/10 [place] RESULTS /2014 [facility] BLOOD BANK HX Antigen S neg 09/10 [place] RESULTS /2014 [facility] BLOOD BANK HX Antigen Le(b) neg 09/10 [place] RESULTS /2014 [facility] BLOOD BANK HISTORICAL Anti-S 09/10 [place] RESULTS AB [facility] BLOOD BANK HISTORICAL Anti-Bg(a) 09/10 [place] RESULTS AB [facility] BLOOD BANK HISTORICAL Anti-Cw 09/10 [place] RESULTS AB [facility] BLOOD BANK C3 Int Negative 09/10 [place] RESULTS /2014 Medical (09/10/14 8:01 AM) Center BLOOD BANK Eluate Int See Note 09/10 2Result Comment: 09/10/2014 12:56 TIMARTI2 [place] non reactive with all cells tested. [facility] BLOOD BANK MEGHAN Gel Int Positive 09/10 [place] RESULTS [facility] (09/10/14 8:01 AM) Center BLOOD BANK AB Int Anti-E 09/10 [place] RESULTS [facility] BLOOD BANK AB Int Anti-c 09/10 [place] RESULTS /2014 [facility] HEMATOLOGY Hgb 6.3 g/dL 12.0 - 09/10 10Result [place] 16.0 2015 Comment: [facility] Result(s) called to JB LONDONO at _09/10/2014 07:45 byMK_. Read back OK. CHEM PANEL LDH 496 unit/L 98 - 192 09/10 [place] /2014 [facility] ELECTROLYTE AGAP 11.8 meq/L 10.0 - 09/10 [place] S 20.0 /2015 [facility] ELECTROLYTE eGFR 137 09/10 4Result Comment: The eGFR is calculated using the CKD-EPI formula. In most young, healthy individuals the eGFR will be > 90 mL/min/1.73m2. The eGFR declines with age. An eGFR of 60-89 may be normal in [facility] mL/min/1.73 some populations, particularly the elderly, for whom the CKD-EPI formula has not been extensively validated. Use of the eGFR is not recommended in the following populations: Medical Center Individuals with unstable creatinine concentrations, including patients and those with serious co-morbid conditions. Patients with extremes in muscle mass or diet. The data above are obtained from the National Kidney Disease Education Program (NKDEP) which additionally recommends that when the eGFR is used in patients with extremes of body mass index for purposes of drug dosing, the eGFR should be multiplied by the estimated BMI. ELECTROLYTE Calcium Lvl 8.3 mg/dL 8.5 - 10.5 09/10 [facility] ELECTROLYTE Chloride Lvl 113 meq/L 95 - 109 09/10 [facility] ELECTROLYTE Sodium Lvl 144 meq/L 135 - 145 09/10 [facility] ELECTROLYTE Glucose Lvl 81 mg/dL 70 - 99 09/10 7Interpretive Data: Adult reference range values reflect the clinical guidelines [facility] of the [place] [employer]. [facility] ELECTROLYTE BUN 4 mg/dL 7 - 22 09/10 [facility] ELECTROLYTE Creatinine 0.6 mg/dL 0.5 - 1.4 09/10 [facility] [place] [facility] ELECTROLYTE CO2 23 meq/L 24 - 32 09/10 [facility] ELECTROLYTE Potassium 3.8 meq/L 3.5 - 5.1 09/10 [facility] [place] [facility] HEMATOLOGY Hgb 6.2 g/dL 12.0 - 09/10 11Result [facility] 16.0 Comment: Medical Critical Center Result(s) called to Amy Fraga at 09/10/2014 06:07 by negrita. Read back OK. HEMATOLOGY WBC 15.9 K/CMM 3.7 - 10.4 09/10 [facility] HEMATOLOGY RBC 1.85 M/CMM 4.20 - 09/10 [facility] 5.40 /2014 [facility] HEMATOLOGY Hct 18.2 % 36.0 - 09/10 [facility] 48.0 [facility] HEMATOLOGY MCV 98.3 fL 80.0 - 09/10 [facility] 98.0 [facility] HEMATOLOGY RDW 25.4 % 11.5 - 09/10 [facility] 14.5 [facility] HEMATOLOGY Platelet 190 K/CMM 133 - 450 09/10 [facility] HEMATOLOGY MCH 33.6 pg 27.0 - 09/10 [facility] 31.0 [facility] HEMATOLOGY MCHC 34.2 g/dL 32.0 - 09/10 36.0 [facility] HEMATOLOGY MPV 8.5 fL 7.4 - 10.4 09/10 [facility] HEMATOLOGY Retic Auto 15.8 % 0.5 - 1.5 09/10 [facility] ELECTROLYTE AGAP 13.7 meq/L 10.0 - 09/09 [facility] S 20.0 [facility] ELECTROLYTE eGFR 96 09/09 5Result Comment: The eGFR is calculated using the CKD-EPI formula. In most young, healthy individuals the eGFR will be > 90 mL/min/1.73m2. The eGFR declines with age. An eGFR of 60-89 may be normal in [facility] mL/min/1.73 some populations, particularly the elderly, for whom the CKD-EPI formula has not been extensively validated. Use of the eGFR is not recommended in the following populations: [place] [address] Center Individuals with unstable creatinine concentrations, including patients and those with serious co-morbid conditions. Patients with extremes in muscle mass or diet. The data above are obtained from the National Kidney Disease Education Program (NKDEP) which additionally recommends that when the eGFR is used in patients with extremes of body mass index for purposes of drug dosing, the eGFR should be multiplied by the estimated BMI. ELECTROLYTE Calcium Lvl 9.1 mg/dL 8.5 - 10.5 09/09 [facility] ELECTROLYTE Potassium 3.7 meq/L 3.5 - 5.1 09/09 [facility] [place] [facility] ELECTROLYTE Sodium Lvl 142 meq/L 135 - 145 09/09 [facility] ELECTROLYTE Glucose Lvl 106 mg/dL 70 - 99 09/09 8Interpretive Data: Adult reference range values reflect the clinical guidelines [facility] of the [place] [employer]. [facility] ELECTROLYTE Creatinine 0.9 mg/dL 0.5 - 1.4 09/09 [facility] ELECTROLYTE BUN 6 mg/dL 7 - 22 09/09 [facility]2015 [facility] ELECTROLYTE CO2 26 meq/L 24 - 32 09/09 [facility] S /2014 [facility] ELECTROLYTE Chloride Lvl 106 meq/L 95 - 109 09/09 [facility]2014 [facility] HEMATOLOGY Sickle Cell Slight 09/09 [facility]2014 [facility] HEMATOLOGY Schistocyte 1-3 per HPF None Seen 09/09 [facility] (09/09/14 2:13 AM) [place] HEMATOLOGY Tear Cell Slight 09/09 [facility]2014 [facility] HEMATOLOGY Target Cell Moderate None Seen 09/09 [facility] [place] (09/09/14 2:13 AM) HEMATOLOGY Polychrom Slight 09/[address] HEMATOLOGY Plt Morph Normal 09/09 [facility] (09/09/14 2:13 AM) [place] HEMATOLOGY Tot Cell Ct 100 09/[address] HEMATOLOGY Bands 0.0 % 0.0 - 11.0 09/[address] HEMATOLOGY Segs 49.0 % 45.0 - 09/09 [facility] 75.0 [facility] HEMATOLOGY Macrocyte 1+ None Seen 09/09 [facility]* [place] (09/09/14 2:13 AM) HEMATOLOGY Anisocyte 1+ None Seen 09/09 [facility]* [place] (09/09/14 2:13 AM) HEMATOLOGY NRBC 2 /100WB 09/[address] HEMATOLOGY Atypical 0.0 % <=0.0 % 09/09 [facility] Lymph [facility] HEMATOLOGY Eosinophils 3.0 % 0.0 - 4.0 09/[address] HEMATOLOGY Monocytes 14.0 % 2.0 - 12.0 09/[address] HEMATOLOGY Lymphocytes 34.0 % 20.0 - 09/09 [facility] 40.0 [facility] HEMATOLOGY Eosinophils 0.6 K/CMM 0.0 - 0.5 09/[address] [facility]2014 [facility] HEMATOLOGY Monocytes # 2.7 K/CMM 0.0 - 0.8 09/[address] HEMATOLOGY Lymphocytes 6.5 K/CMM 1.0 - 5.5 09/09 [facility] /[address] [place] [address] HEMATOLOGY Segs-Bands # 9.3 K/CMM 1.5 - 8.1 09/[address] HEMATOLOGY Retic Auto 16.6 % 0.5 - 1.5 09/09 [facility] HEMATOLOGY MPV 8.3 fL 7.4 - 10.4 09/09 [facility] HEMATOLOGY RDW 25.8 % 11.5 - 09/09 14.5 [facility] HEMATOLOGY MCHC 34.3 g/dL 32.0 - 09/09 [place] 36.0 [facility] HEMATOLOGY Platelet 220 K/CMM 133 - 450 09/09 [facility] HEMATOLOGY MCV 99.8 fL 80.0 - 09/09 98.0 /2014 [facility] HEMATOLOGY Hct 22.7 % 36.0 - 09/09 48.0 [facility] HEMATOLOGY MCH 34.2 pg 27.0 - 09/09 31.0 [facility] HEMATOLOGY WBC 19.0 K/CMM 3.7 - 10.4 09/09 [facility] HEMATOLOGY RBC 2.28 M/CMM 4.20 - 09/09 [facility] 5.40 /2014 [facility] Vital Signs Vital Sign Value Date Comments Source Respitory Rate 18 09/12/2014 [facility] Systolic (mm Hg) 120 09/12/2014 [facility] Heart Rate 80 09/12/2014 [facility] Diastolic (mm Hg) 80 09/12/2014 [facility] Temperature Oral (F) 98.0 F 09/12/2014 [facility] Diastolic (mm Hg) 82 09/11/2014 [facility] Respitory Rate 18 09/11/2014 [facility] Systolic (mm Hg) 132 09/11/2014 [facility] Heart Rate 82 09/11/2014 [facility] Temperature Oral (F) 98.4 F 09/11/2014 [facility] Respitory Rate 16 09/11/2014 [facility] Heart Rate 86 09/11/2014 [facility] Systolic (mm Hg) 120 09/11/2014 [facility] Diastolic (mm Hg) 86 09/11/2014 [facility] Temperature Oral (F) 98.1 F 09/11/2014 [facility] Weight 70.591 09/10/2014 [facility] Weight 68.182 09/09/2014 [facility] BMI Calculated 26.63 09/09/2014 [facility] Height 160.02 cm 09/09/2014 [facility] Weight 70 09/09/2014 [facility] Height 160.02 cm 09/09/2014 [facility] BMI Calculated 27.34 09/09/2014 [facility] Encounters Location Location Encounter Encounter Reason Attending ADM DC Status Source Details Type Number For Provider Date Date Visit [facility] [id number] Josiane 09/09 09/12 [facility]oly [place] /2014 [facility] Procedures Procedure Code Date Perfomer Comments Source
--- OUTSIDE RECORDS SUMMARY | 2018-02-26 01:54 | XMS REPORT ---
:1980 Author Organization [facility] Address [address] [place] [address] Dr. Iraheta [address] [place] [id number] Care Team Providers Name Role Phone YANA CIFUENTES Unavailable Unavailable SHUKRIFROY TALISHA Unavailable Unavailable Problems This patient has no known problems. Allergies, Adverse Reactions, Alerts This patient has no known allergies or adverse reactions. Medications This patient has no known medications. Results Test Description Test Time Test Comments Text Results Atomic Results Result Comments CBC W/PLT COUNT & AUTO DIFFERENTIAL 2018-02-08 12:02:00 Test Item Value Reference Range Comments WHITE BLOOD CELL COUNT (BEAKER) (test mowt=006) 14.3 K/ L 3.5-10.5 RED BLOOD CELL COUNT (BEAKER) (test hmpi=063) 2.54 M/ L 3.93-5.22 HEMOGLOBIN (BEAKER) (test aygu=954) 7.3 GM/DL 11.2-15.7 HEMATOCRIT (BEAKER) (test wlak=724) 23.4 % 34.1-44.9 MEAN CORPUSCULAR VOLUME (BEAKER) (test bikc=245) 92.1 fL 79.4-94.8 MEAN CORPUSCULAR HEMOGLOBIN (BEAKER) (test tvxz=685) 28.7 pg 25.6-32.2 MEAN CORPUSCULAR HEMOGLOBIN CONC (BEAKER) (test wnin=993) 31.2 GM/DL 32.2- 35.5 RED CELL DISTRIBUTION WIDTH (BEAKER) (test mhbv=783) 21.4 % 11.7-14.4 PLATELET COUNT (BEAKER) (test axpw=547) 239 K/CU MM 150-450 MEAN PLATELET VOLUME (BEAKER) (test chew=478) 11.0 fL 9.4-12.3 NUCLEATED RED BLOOD CELLS (BEAKER) (test frdm=857) 4 /100 WBC 0-0 (CELLAVISION MANUAL DIFF)2018-02-08 12:02:00 Test Item Value Reference Range Comments NEUTROPHILS - REL (CELLAVISION)(BEAKER) (test 66 % lkjj=9694) LYMPHOCYTES - REL (CELLAVISION)(BEAKER) (test 22 % ipjm=4848) MONOCYTES - REL (CELLAVISION)(BEAKER) (test 8 % jmrv=5228) EOSINOPHILS - REL (CELLAVISION)(BEAKER) (test 3 % fhal=8831) NEUTROPHILS - ABS (CELLAVISION)(BEAKER) (test 9.44 K/ul 1.56-6.13 ilvi=5884) LYMPHOCYTES - ABS (CELLAVISION)(BEAKER) (test 3.15 K/ul 1.18-3.74 egge=0361) MONOCYTES - ABS (CELLAVISION)(BEAKER) (test 1.14 K/uL 0.24-0.36 eyvq=4110) EOSINOPHILS - ABS (CELLAVISION)(BEAKER) (test 0.43 K/uL 0.04-0.36 flhz=5124) TOTAL COUNTED (BEAKER) (test rukw=1884) 100 MANUAL NRBC PER 100 CELLS (BEAKER) (test 5 /100 WBC 0-0 qsgr=6912) WBC MORPHOLOGY (BEAKER) (test nlei=082) Normal PLT MORPHOLOGY (BEAKER) (test ubeg=671) Normal ANISOCYTOSIS (BEAKER) (test jelo=844) 2+ moderate MACROCYTES (BEAKER) (test gwwd=782) 1+ few TARGET CELLS (BEAKER) (test rynd=402) 1+ few SICKLE CELLS (BEAKER) (test tvzf=136) 1+ few MATTHEWS-JOLLY BODIES (BEAKER) (test akqp=661) 1+ few ARTIFACT (CELLAVISION)(BEAKER) (test fvfk=5663) Present PLATELET CONCENTRATION (CELLAVISION)(BEAKER) Adequate (test eqjw=3416) Received comment: User comments: Slide comments:BASIC METABOLIC [id number] 06:09:00 Test Item Value Reference Range Comments SODIUM (BEAKER) (test 138 meq/L 136-145 snsi=897) POTASSIUM (BEAKER) (test 5.9 meq/L 3.5-5.1 ljbr=092) CHLORIDE (BEAKER) (test 102 meq/L 98-107 zybz=291) CO2 (BEAKER) (test 30 meq/L 22-29 upaj=548) BLOOD UREA NITROGEN 15 mg/dL 7-21 (BEAKER) (test ofug=636) CREATININE (BEAKER) (test 0.68 mg/dL 0.57-1.25 tlin=006) GLUCOSE RANDOM (BEAKER) 87 mg/dL 70-105 (test ujrk=712) CALCIUM (BEAKER) (test 9.6 mg/dL 8.4-10.2 mvzl=461) EGFR (BEAKER) (test 117 mL/min/1.73 sq m ESTIMATED GFR IS NOT feug=6177) ACCURATE CREATININE CLEARANCE IN PREDICTING GLOMERULAR FILTRATION RATE. ESTIMATED GFR IS NOT APPLICABLE FOR DIALYSIS PATIENTS. (CELLAVISION MANUAL DIFF)2018-02-07 13:34:00 Test Item Value Reference Range Comments NEUTROPHILS - REL (CELLAVISION)(BEAKER) (test 68 % sets=7531) LYMPHOCYTES - REL (CELLAVISION)(BEAKER) (test 24 % zotu=8158) MONOCYTES - REL (CELLAVISION)(BEAKER) (test 7 % svrf=3290) EOSINOPHILS - REL (CELLAVISION)(BEAKER) (test 1 % xsse=6239) NEUTROPHILS - ABS (CELLAVISION)(BEAKER) (test 9.66 K/ul 1.56-6.13 nttd=9712) LYMPHOCYTES - ABS (CELLAVISION)(BEAKER) (test 3.41 K/ul 1.18-3.74 oyvm=9554) MONOCYTES - ABS (CELLAVISION)(BEAKER) (test 0.99 K/uL 0.24-0.36 hqbb=4548) EOSINOPHILS - ABS (CELLAVISION)(BEAKER) (test 0.14 K/uL 0.04-0.36 zjsr=0174) TOTAL COUNTED (BEAKER) (test jcrc=0703) 100 MANUAL NRBC PER 100 CELLS (BEAKER) (test 15 /100 WBC 0-0 mzxe=3904) WBC MORPHOLOGY (BEAKER) (test vycv=024) Normal LARGE PLT(BEAKER) (test pakj=7737) Present POLYCHROMATOPHILLIC RBCS(BEAKER) (test awvp=339) 2+ moderate HYPOCHROMIA (BEAKER) (test eqcj=323) 1+ few TARGET CELLS (BEAKER) (test smal=348) 2+ moderate SICKLE CELLS (BEAKER) (test qpqq=764) 1+ few MATTHEWS-JOLLY BODIES (BEAKER) (test mcow=766) 1+ few ARTIFACT (CELLAVISION)(BEAKER) (test jtar=4811) Present PLATELET CONCENTRATION (CELLAVISION)(BEAKER) Adequate (test wxkf=6894) Received comment: User comments: Slide comments:CBC W/PLT COUNT & AUTO [id number] 13:33:00 Test Item Value Reference Range Comments WHITE BLOOD CELL COUNT (BEAKER) (test mmjh=426) 14.2 K/ L 3.5-10.5 RED BLOOD CELL COUNT (BEAKER) (test ruet=896) 2.68 M/ L 3.93-5.22 HEMOGLOBIN (BEAKER) (test bhap=662) 7.7 GM/DL 11.2-15.7 HEMATOCRIT (BEAKER) (test gyqr=851) 24.5 % 34.1-44.9 MEAN CORPUSCULAR VOLUME (BEAKER) (test vzoq=333) 91.4 fL 79.4-94.8 MEAN CORPUSCULAR HEMOGLOBIN (BEAKER) (test 28.7 pg 25.6-32.2 sxgo=454) MEAN CORPUSCULAR HEMOGLOBIN CONC (BEAKER) (test 31.4 GM/DL 32.2-35.5 qapb=900) RED CELL DISTRIBUTION WIDTH (BEAKER) (test 21.2 % 11.7-14.4 clet=294) PLATELET COUNT (BEAKER) (test nemb=132) 257 K/CU MM 150-450 MEAN PLATELET VOLUME (BEAKER) (test agir=455) 11.4 fL 9.4-12.3 NUCLEATED RED BLOOD CELLS (BEAKER) (test 6 /100 WBC 0-0 lfvo=136) BASIC METABOLIC [id number] 07:19:00 Test Item Value Reference Range Comments SODIUM (BEAKER) (test 138 meq/L 136-145 gzcz=997) POTASSIUM (BEAKER) (test 5.3 meq/L 3.5-5.1 wnpj=133) CHLORIDE (BEAKER) (test 98 meq/L 98-107 frcc=238) CO2 (BEAKER) (test 34 meq/L 22-29 xfhc=590) BLOOD UREA NITROGEN 16 mg/dL 7-21 (BEAKER) (test ffdx=516) CREATININE (BEAKER) (test 0.66 mg/dL 0.57-1.25 ilho=179) GLUCOSE RANDOM (BEAKER) 90 mg/dL 70-105 (test sfrh=535) CALCIUM (BEAKER) (test 9.8 mg/dL 8.4-10.2 iofs=163) EGFR (BEAKER) (test 121 mL/min/1.73 sq m ESTIMATED GFR IS NOT fnxq=0935) ACCURATE CREATININE CLEARANCE IN PREDICTING GLOMERULAR FILTRATION RATE. ESTIMATED GFR IS NOT APPLICABLE FOR DIALYSIS PATIENTS. CBC W/PLT COUNT & AUTO [id number] 14:36:00 Test Item Value Reference Range Comments WHITE BLOOD CELL COUNT (BEAKER) (test ckxc=494) 12.9 K/ L 3.5-10.5 RED BLOOD CELL COUNT (BEAKER) (test vnro=865) 2.54 M/ L 3.93-5.22 HEMOGLOBIN (BEAKER) (test erfr=115) 7.4 GM/DL 11.2-15.7 HEMATOCRIT (BEAKER) (test dein=399) 22.9 % 34.1-44.9 MEAN CORPUSCULAR VOLUME (BEAKER) (test xymr=376) 90.2 fL 79.4-94.8 MEAN CORPUSCULAR HEMOGLOBIN (BEAKER) (test 29.1 pg 25.6-32.2 zaac=818) MEAN CORPUSCULAR HEMOGLOBIN CONC (BEAKER) (test 32.3 GM/DL 32.2-35.5 xjan=871) RED CELL DISTRIBUTION WIDTH (BEAKER) (test 21.2 % 11.7-14.4 oows=165) PLATELET COUNT (BEAKER) (test ckdz=685) 251 K/CU MM 150-450 MEAN PLATELET VOLUME (BEAKER) (test gvou=081) 10.8 fL 9.4-12.3 NUCLEATED RED BLOOD CELLS (BEAKER) (test 7 /100 WBC 0-0 yuaz=406) (MANUAL DIFFERENTIAL)2018-02-06 14:36:00 Test Item Value Reference Range Comments NEUTROPHILS - REL (DIFF) (BEAKER) (test 64 % szaa=1985) LYMPHOCYTES - REL (DIFF) (BEAKER) (test 22 % zeyi=9252) MONOCYTES - REL (DIFF) (BEAKER) (test tvtr=5394) 8 % EOSINOPHILS - REL (DIFF) (BEAKER) (test 6 % udoc=1835) BASOPHILS - REL (DIFF) (BEAKER) (test gpzy=0078) 0 % NEUTROPHILS - ABS (DIFF) (BEAKER) (test 8.26 K/ L 1.80-8.00 ieqr=9503) LYMPHOCYTES - ABS (DIFF) (BEAKER) (test 2.84 K/ L 1.48-4.50 mvsq=3729) MONOCYTES - ABS (DIFF) (BEAKER) (test erjf=7065) 1.03 K/ L 0.00-1.30 EOSINOPHILS - ABS (DIFF) (BEAKER) (test 0.77 K/ L 0.00-0.50 zvjs=7313) BASOPHILS - ABS (DIFF) (BEAKER) (test pfvh=2671) 0.00 K/ L 0.00-0.20 TOTAL COUNTED (BEAKER) (test dkef=4523) 100 MANUAL NRBC PER 100 CELLS (BEAKER) (test 8 /100 WBC 0-0 fupj=9564) WBC MORPHOLOGY (BEAKER) (test bror=231) Normal PLT MORPHOLOGY (BEAKER) (test jfic=677) Normal ANISOCYTOSIS (BEAKER) (test qrmf=909) 2+ moderate SICKLE CELLS (BEAKER) (test rytr=460) 2+ moderate BASIC METABOLIC [id number] 06:59:00 Test Item Value Reference Range Comments SODIUM (BEAKER) (test 139 meq/L 136-145 nvln=162) POTASSIUM (BEAKER) (test 4.9 meq/L 3.5-5.1 ttev=751) CHLORIDE (BEAKER) (test 100 meq/L 98-107 shuv=494) CO2 (BEAKER) (test 34 meq/L 22-29 rimd=403) BLOOD UREA NITROGEN 18 mg/dL 7-21 (BEAKER) (test hhti=636) CREATININE (BEAKER) (test 0.70 mg/dL 0.57-1.25 rixn=985) GLUCOSE RANDOM (BEAKER) 102 mg/dL 70-105 (test vjav=999) CALCIUM (BEAKER) (test 9.8 mg/dL 8.4-10.2 gwvs=245) EGFR (BEAKER) (test 114 mL/min/1.73 sq m ESTIMATED GFR IS NOT jhzh=4208) ACCURATE CREATININE CLEARANCE IN PREDICTING GLOMERULAR FILTRATION RATE. ESTIMATED GFR IS NOT APPLICABLE FOR DIALYSIS PATIENTS. CBC W/PLT COUNT & AUTO [id number] 12:27:00 Test Item Value Reference Range Comments WHITE BLOOD CELL COUNT (BEAKER) (test apoc=979) 14.2 K/ L 3.5-10.5 RED BLOOD CELL COUNT (BEAKER) (test urnx=216) 2.55 M/ L 3.93-5.22 HEMOGLOBIN (BEAKER) (test odno=668) 7.2 GM/DL 11.2-15.7 HEMATOCRIT (BEAKER) (test urql=109) 22.9 % 34.1-44.9 MEAN CORPUSCULAR VOLUME (BEAKER) (test giax=481) 89.8 fL 79.4-94.8 MEAN CORPUSCULAR HEMOGLOBIN (BEAKER) (test 28.2 pg 25.6-32.2 oeuq=479) MEAN CORPUSCULAR HEMOGLOBIN CONC (BEAKER) (test 31.4 GM/DL 32.2-35.5 aqoo=409) RED CELL DISTRIBUTION WIDTH (BEAKER) (test 20.7 % 11.7-14.4 otva=197) PLATELET COUNT (BEAKER) (test pxvy=595) 261 K/CU MM 150-450 MEAN PLATELET VOLUME (BEAKER) (test igfv=406) 10.7 fL 9.4-12.3 NUCLEATED RED BLOOD CELLS (BEAKER) (test 5 /100 WBC 0-0 cdpz=888) (CELLAVISION MANUAL DIFF)2018-02-05 12:27:00 Test Item Value Reference Range Comments NEUTROPHILS - REL (CELLAVISION)(BEAKER) (test 67 % rumn=2115) LYMPHOCYTES - REL (CELLAVISION)(BEAKER) (test 17 % rzyx=7912) MONOCYTES - REL (CELLAVISION)(BEAKER) (test 6 % fmzs=1150) EOSINOPHILS - REL (CELLAVISION)(BEAKER) (test 4 % axhl=9253) PROMYELOCYTES - REL (CELLAVSION)(BEAKER) (test 5 % 0-0 wjrp=8997) ATYPICAL LYMPHOCYTES - REL (CELLAVISION)(BEAKER) 1 % 0-0 (test zpve=0090) NEUTROPHILS - ABS (CELLAVISION)(BEAKER) (test 9.51 K/ul 1.56-6.13 wjkv=6208) LYMPHOCYTES - ABS (CELLAVISION)(BEAKER) (test 2.41 K/ul 1.18-3.74 tfkc=2483) MONOCYTES - ABS (CELLAVISION)(BEAKER) (test 0.85 K/uL 0.24-0.36 awbt=7520) EOSINOPHILS - ABS (CELLAVISION)(BEAKER) (test 0.57 K/uL 0.04-0.36 engc=3153) PROMYELOCYTES - ABS (CELLAVISION)(BEAKER) (test 0.71 K/uL 0.00-0.00 nhpo=8595) ATYPICAL LYMPHOCYTES - ABS (CELLAVISION)(BEAKER) 0.14 K/uL 0.00-0.00 (test vzgm=8177) TOTAL COUNTED (BEAKER) (test qnyp=5837) 100 MANUAL NRBC PER 100 CELLS (BEAKER) (test 9 /100 WBC 0-0 vukz=0496) WBC MORPHOLOGY (BEAKER) (test xnex=593) Normal LARGE PLT(BEAKER) (test mtfw=1275) Present POLYCHROMATOPHILLIC RBCS(BEAKER) (test edwo=034) 2+ moderate HYPOCHROMIA (BEAKER) (test bxag=882) 1+ few TARGET CELLS (BEAKER) (test ijhd=980) 2+ moderate SICKLE CELLS (BEAKER) (test xfqt=441) 2+ moderate ARTIFACT (CELLAVISION)(BEAKER) (test eomc=4014) Present PLATELET CONCENTRATION (CELLAVISION)(BEAKER) Adequate (test jofc=8135) Received comment: User comments: Slide comments:BASIC METABOLIC [id number] 07:44:00 Test Item Value Reference Range Comments SODIUM (BEAKER) (test 139 meq/L 136-145 lmgy=151) POTASSIUM (BEAKER) (test 4.7 meq/L 3.5-5.1 ylno=765) CHLORIDE (BEAKER) (test 100 meq/L 98-107 nhul=770) CO2 (BEAKER) (test 31 meq/L 22-29 ahjh=257) BLOOD UREA NITROGEN 14 mg/dL 7-21 (BEAKER) (test wblt=449) CREATININE (BEAKER) (test 0.69 mg/dL 0.57-1.25 fmlf=476) GLUCOSE RANDOM (BEAKER) 92 mg/dL 70-105 (test epue=142) CALCIUM (BEAKER) (test 9.8 mg/dL 8.4-10.2 swyy=155) EGFR (BEAKER) (test 115 mL/min/1.73 sq m ESTIMATED GFR IS NOT qntc=9805) ACCURATE CREATININE CLEARANCE IN PREDICTING GLOMERULAR FILTRATION RATE. ESTIMATED GFR IS NOT APPLICABLE FOR DIALYSIS PATIENTS. CBC W/PLT COUNT & AUTO [id number] 13:29:00 Test Item Value Reference Range Comments WHITE BLOOD CELL COUNT (BEAKER) (test sfcf=210) 17.1 K/ L 3.5-10.5 RED BLOOD CELL COUNT (BEAKER) (test yffm=281) 2.68 M/ L 3.93-5.22 HEMOGLOBIN (BEAKER) (test ockj=109) 7.6 GM/DL 11.2-15.7 HEMATOCRIT (BEAKER) (test omiq=311) 23.3 % 34.1-44.9 MEAN CORPUSCULAR VOLUME (BEAKER) (test nsjh=096) 86.9 fL 79.4-94.8 MEAN CORPUSCULAR HEMOGLOBIN (BEAKER) (test 28.4 pg 25.6-32.2 gkgk=559) MEAN CORPUSCULAR HEMOGLOBIN CONC (BEAKER) (test 32.6 GM/DL 32.2-35.5 edvg=068) RED CELL DISTRIBUTION WIDTH (BEAKER) (test 20.0 % 11.7-14.4 spas=306) PLATELET COUNT (BEAKER) (test dsnx=409) 252 K/CU MM 150-450 MEAN PLATELET VOLUME (BEAKER) (test uoww=704) 10.9 fL 9.4-12.3 NUCLEATED RED BLOOD CELLS (BEAKER) (test 4 /100 WBC 0-0 ncrr=952) (CELLAVISION MANUAL DIFF)2018-02-04 13:29:00 Test Item Value Reference Range Comments NEUTROPHILS - REL (CELLAVISION)(BEAKER) (test 61 % wghs=0404) LYMPHOCYTES - REL (CELLAVISION)(BEAKER) (test 29 % gsps=4446) MONOCYTES - REL (CELLAVISION)(BEAKER) (test 7 % xagk=1892) EOSINOPHILS - REL (CELLAVISION)(BEAKER) (test 1 % olyr=3070) BANDS - REL (CELLAVISION)(BEAKER) (test 2 % 0-10 iksd=2697) NEUTROPHILS - ABS (CELLAVISION)(BEAKER) (test 10.43 K/ul 1.56-6.13 uyul=1032) LYMPHOCYTES - ABS (CELLAVISION)(BEAKER) (test 4.96 K/ul 1.18-3.74 zxof=4431) MONOCYTES - ABS (CELLAVISION)(BEAKER) (test 1.20 K/uL 0.24-0.36 aryd=0286) EOSINOPHILS - ABS (CELLAVISION)(BEAKER) (test 0.17 K/uL 0.04-0.36 ebyy=5570) BANDS - ABS (CELLAVISION)(BEAKER) (test 0.34 K/uL 0.00-0.80 afhh=4805) TOTAL COUNTED (BEAKER) (test cnzv=6782) 100 MANUAL NRBC PER 100 CELLS (BEAKER) (test 3 /100 WBC 0-0 qksw=8095) SMUDGE CELLS (BEAKER) (test egfs=9790) Present GIANT PLATELETS (BEAKER) (test snyd=044) Present POLYCHROMATOPHILLIC RBCS(BEAKER) (test jlhs=327) 3+ many ANISOCYTOSIS (BEAKER) (test hmlv=909) 2+ moderate MICROCYTES (BEAKER) (test tdig=802) 1+ few POIKILOCYTES (BEAKER) (test khpk=733) 2+ moderate TARGET CELLS (BEAKER) (test jmih=573) 2+ moderate SICKLE CELLS (BEAKER) (test aqlp=467) 2+ moderate ARTIFACT (CELLAVISION)(BEAKER) (test bhlk=7056) Present HELMET CELLS (CELLAVISION)(BEAKER) (test 1+ few hvkt=4779) PLATELET CONCENTRATION (CELLAVISION)(BEAKER) Adequate (test alcc=9613) Received comment: User comments: Slide comments:BASIC METABOLIC [id number] 05:38:00 Test Item Value Reference Range Comments SODIUM (BEAKER) (test 140 meq/L 136-145 yzvb=569) POTASSIUM (BEAKER) (test 4.6 meq/L 3.5-5.1 qwto=879) CHLORIDE (BEAKER) (test 104 meq/L 98-107 wbop=932) CO2 (BEAKER) (test 28 meq/L 22-29 kapg=975) BLOOD UREA NITROGEN 18 mg/dL 7-21 (BEAKER) (test juhv=544) CREATININE (BEAKER) (test 0.66 mg/dL 0.57-1.25 wmeg=289) GLUCOSE RANDOM (BEAKER) 100 mg/dL 70-105 (test jada=299) CALCIUM (BEAKER) (test 9.5 mg/dL 8.4-10.2 ptqc=337) EGFR (BEAKER) (test 121 mL/min/1.73 sq m ESTIMATED GFR IS NOT ahfb=8272) ACCURATE CREATININE CLEARANCE IN PREDICTING GLOMERULAR FILTRATION RATE. ESTIMATED GFR IS NOT APPLICABLE FOR DIALYSIS PATIENTS. CBC W/PLT COUNT & AUTO [id number] 14:02:00 Test Item Value Reference Range Comments WHITE BLOOD CELL COUNT (BEAKER) (test xtxh=158) 20.8 K/ L 3.5-10.5 RED BLOOD CELL COUNT (BEAKER) (test rfhv=366) 1.97 M/ L 3.93-5.22 HEMOGLOBIN (BEAKER) (test tnbf=357) 5.9 GM/DL 11.2-15.7 HEMATOCRIT (BEAKER) (test xcxa=617) 17.6 % 34.1-44.9 MEAN CORPUSCULAR VOLUME (BEAKER) (test jsno=540) 89.3 fL 79.4-94.8 MEAN CORPUSCULAR HEMOGLOBIN (BEAKER) (test 29.9 pg 25.6-32.2 kscx=815) MEAN CORPUSCULAR HEMOGLOBIN CONC (BEAKER) (test 33.5 GM/DL 32.2-35.5 ttfz=787) RED CELL DISTRIBUTION WIDTH (BEAKER) (test 21.8 % 11.7-14.4 qldi=855) PLATELET COUNT (BEAKER) (test lssd=760) 290 K/CU MM 150-450 MEAN PLATELET VOLUME (BEAKER) (test cxlb=096) 10.7 fL 9.4-12.3 NUCLEATED RED BLOOD CELLS (BEAKER) (test 5 /100 WBC 0-0 rtdx=460) NEUTROPHILS RELATIVE PERCENT (BEAKER) (test 66 % izkt=040) LYMPHOCYTES RELATIVE PERCENT (BEAKER) (test 23 % pecq=807) MONOCYTES RELATIVE PERCENT (BEAKER) (test 10 % epcg=423) EOSINOPHILS RELATIVE PERCENT (BEAKER) (test 1 % agwn=596) BASOPHILS RELATIVE PERCENT (BEAKER) (test 0 % coto=803) NEUTROPHILS ABSOLUTE COUNT (BEAKER) (test 13.73 K/ L 1.56-6.13 eoze=773) LYMPHOCYTES ABSOLUTE COUNT (BEAKER) (test 4.72 K/ L 1.18-3.74 fwxe=172) MONOCYTES ABSOLUTE COUNT (BEAKER) (test 2.06 K/ L 0.24-0.36 iyyp=515) EOSINOPHILS ABSOLUTE COUNT (BEAKER) (test 0.20 K/ L 0.04-0.36 keef=011) BASOPHILS ABSOLUTE COUNT (BEAKER) (test 0.03 K/ L 0.01-0.08 rrki=387) IMMATURE GRANULOCYTES-RELATIVE PERCENT (BEAKER) 1 % 0-1 (test mvar=5114) (CELLAVISION MANUAL DIFF)2018-02-03 14:02:00 Test Item Value Reference Range Comments TOTAL COUNTED (BEAKER) (test afin=8641) WBC MORPHOLOGY (BEAKER) (test jzpw=040) Normal PLT MORPHOLOGY (BEAKER) (test abnf=499) Normal POLYCHROMATOPHILLIC RBCS(BEAKER) (test rsue=808) 2+ moderate ANISOCYTOSIS (BEAKER) (test lgrd=049) 2+ moderate TARGET CELLS (BEAKER) (test coiw=056) 2+ moderate SICKLE CELLS (BEAKER) (test fwgm=915) 2+ moderate BASIC METABOLIC [id number] 07:22:00 Test Item Value Reference Range Comments SODIUM (BEAKER) (test 140 meq/L 136-145 urbf=246) POTASSIUM (BEAKER) (test 4.9 meq/L 3.5-5.1 obcz=471) CHLORIDE (BEAKER) (test 105 meq/L 98-107 ogjf=327) CO2 (BEAKER) (test 29 meq/L 22-29 izjj=296) BLOOD UREA NITROGEN 20 mg/dL 7-21 (BEAKER) (test jhll=545) CREATININE (BEAKER) (test 0.72 mg/dL 0.57-1.25 jmky=047) GLUCOSE RANDOM (BEAKER) 100 mg/dL 70-105 (test gzjf=469) CALCIUM (BEAKER) (test 9.4 mg/dL 8.4-10.2 hlyo=683) EGFR (BEAKER) (test 110 mL/min/1.73 sq m ESTIMATED GFR IS NOT qtol=2394) ACCURATE CREATININE CLEARANCE IN PREDICTING GLOMERULAR FILTRATION RATE. ESTIMATED GFR IS NOT APPLICABLE FOR DIALYSIS PATIENTS. Specimen slightly ictericCBC W/PLT COUNT & AUTO [id number] 06:46 :00 Test Item Value Reference Range Comments WHITE BLOOD CELL COUNT (BEAKER) (test btzc=638) 17.0 K/ L 3.5-10.5 RED BLOOD CELL COUNT (BEAKER) (test usgb=965) 2.18 M/ L 3.93-5.22 HEMOGLOBIN (BEAKER) (test zdvn=286) 6.4 GM/DL 11.2-15.7 HEMATOCRIT (BEAKER) (test lqdv=672) 20.3 % 34.1-44.9 MEAN CORPUSCULAR VOLUME (BEAKER) (test nspc=659) 93.1 fL 79.4-94.8 MEAN CORPUSCULAR HEMOGLOBIN (BEAKER) (test 29.4 pg 25.6-32.2 dbls=346) MEAN CORPUSCULAR HEMOGLOBIN CONC (BEAKER) (test 31.5 GM/DL 32.2-35.5 kmwc=070) RED CELL DISTRIBUTION WIDTH (BEAKER) (test 24.0 % 11.7-14.4 zrft=222) PLATELET COUNT (BEAKER) (test joaz=024) 274 K/CU MM 150-450 MEAN PLATELET VOLUME (BEAKER) (test bizq=629) 10.9 fL 9.4-12.3 NUCLEATED RED BLOOD CELLS (BEAKER) (test 13 /100 WBC 0-0 glqm=595) (CELLAVISION MANUAL DIFF)2018-02-02 06:46:00 Test Item Value Reference Range Comments NEUTROPHILS - REL (CELLAVISION)(BEAKER) (test 72 % bqtj=0492) LYMPHOCYTES - REL (CELLAVISION)(BEAKER) (test 20 % hftz=5673) MONOCYTES - REL (CELLAVISION)(BEAKER) (test 6 % jyjq=8841) EOSINOPHILS - REL (CELLAVISION)(BEAKER) (test 1 % chqm=1950) BANDS - REL (CELLAVISION)(BEAKER) (test 1 % 0-10 fbgs=0451) NEUTROPHILS - ABS (CELLAVISION)(BEAKER) (test 12.24 K/ul 1.56-6.13 uigq=8035) LYMPHOCYTES - ABS (CELLAVISION)(BEAKER) (test 3.40 K/ul 1.18-3.74 yeti=2895) MONOCYTES - ABS (CELLAVISION)(BEAKER) (test 1.02 K/uL 0.24-0.36 vudy=8153) EOSINOPHILS - ABS (CELLAVISION)(BEAKER) (test 0.17 K/uL 0.04-0.36 tivt=5014) BANDS - ABS (CELLAVISION)(BEAKER) (test 0.17 K/uL 0.00-0.80 ixjc=1383) TOTAL COUNTED (BEAKER) (test xqmb=8716) 100 MANUAL NRBC PER 100 CELLS (BEAKER) (test 30 /100 WBC 0-0 nqnr=7934) WBC MORPHOLOGY (BEAKER) (test ihce=536) Normal PLT MORPHOLOGY (BEAKER) (test atsm=846) Normal POLYCHROMATOPHILLIC RBCS(BEAKER) (test kere=816) 3+ many ANISOCYTOSIS (BEAKER) (test pxmr=478) 2+ moderate MACROCYTES (BEAKER) (test stul=627) 2+ moderate TARGET CELLS (BEAKER) (test bcsx=893) 1+ few SICKLE CELLS (BEAKER) (test yejf=677) 1+ few ARTIFACT (CELLAVISION)(BEAKER) (test avkk=7592) Present PLATELET CONCENTRATION (CELLAVISION)(BEAKER) Adequate (test dinl=1683) Received comment: User comments: Slide comments:BASIC METABOLIC [id number] 06:15:00 Test Item Value Reference Range Comments SODIUM (BEAKER) (test 139 meq/L 136-145 wgbk=217) POTASSIUM (BEAKER) (test 4.7 meq/L 3.5-5.1 pccc=423) CHLORIDE (BEAKER) (test 105 meq/L 98-107 apwu=712) CO2 (BEAKER) (test 26 meq/L 22-29 cqtd=793) BLOOD UREA NITROGEN 10 mg/dL 7-21 (BEAKER) (test bzaa=763) CREATININE (BEAKER) (test 0.67 mg/dL 0.57-1.25 hqjp=680) GLUCOSE RANDOM (BEAKER) 91 mg/dL 70-105 (test xsud=468) CALCIUM (BEAKER) (test 9.3 mg/dL 8.4-10.2 gfih=013) EGFR (BEAKER) (test 119 mL/min/1.73 sq m ESTIMATED GFR IS NOT wiso=4590) ACCURATE CREATININE CLEARANCE IN PREDICTING GLOMERULAR FILTRATION RATE. ESTIMATED GFR IS NOT APPLICABLE FOR DIALYSIS PATIENTS. URINALYSIS W/ [id number] 20:17:00 Test Item Value Reference Range Comments COLOR (BEAKER) (test lbkv=451) Yellow CLARITY (BEAKER) (test bjun=796) Hazy SPECIFIC GRAVITY UA (BEAKER) (test cjtn=619) 1.009 1.001-1.035 PH UA (BEAKER) (test bahi=502) 5.5 5.0-8.0 PROTEIN UA (BEAKER) (test weyj=473) 20 mg/dL Negative GLUCOSE UA (BEAKER) (test uwyc=797) Negative Negative KETONES UA (BEAKER) (test rmsc=400) Negative Negative BILIRUBIN UA (BEAKER) (test cqwu=582) Negative Negative BLOOD UA (BEAKER) (test pvxw=631) Small Negative NITRITE UA (BEAKER) (test jefh=719) Negative Negative LEUKOCYTE ESTERASE UA (BEAKER) (test oofo=303) Small Negative UROBILINOGEN UA (BEAKER) (test bhzx=603) 0.2 mg/dL 0.2-1.0 RBC UA (BEAKER) (test xbgq=605) 1 /HPF WBC UA (BEAKER) (test lsey=288) 4 /HPF BACTERIA (BEAKER) (test nmfi=324) Few MUCUS (BEAKER) (test siec=4127) Occasional SQUAMOUS EPITHELIAL (BEAKER) (test hlpi=292) 8 /HPF SOURCE(BEAKER) (test pevr=5805) Urine, Voided CBC W/PLT COUNT & AUTO [id number] 11:18:00 Test Item Value Reference Range Comments WHITE BLOOD CELL COUNT (BEAKER) (test kumk=538) 16.9 K/ L 3.5-10.5 RED BLOOD CELL COUNT (BEAKER) (test sdaa=191) 2.15 M/ L 3.93-5.22 HEMOGLOBIN (BEAKER) (test krlb=935) 6.5 GM/DL 11.2-15.7 HEMATOCRIT (BEAKER) (test fwev=895) 20.6 % 34.1-44.9 MEAN CORPUSCULAR VOLUME (BEAKER) (test ujel=204) 95.8 fL 79.4-94.8 MEAN CORPUSCULAR HEMOGLOBIN (BEAKER) (test 30.2 pg 25.6-32.2 plnn=051) MEAN CORPUSCULAR HEMOGLOBIN CONC (BEAKER) (test 31.6 GM/DL 32.2-35.5 sory=592) RED CELL DISTRIBUTION WIDTH (BEAKER) (test 25.6 % 11.7-14.4 eteq=219) PLATELET COUNT (BEAKER) (test hhrt=578) 280 K/CU MM 150-450 MEAN PLATELET VOLUME (BEAKER) (test pufa=011) 10.7 fL 9.4-12.3 NUCLEATED RED BLOOD CELLS (BEAKER) (test 27 /100 WBC 0-0 zmaa=323) (CELLAVISION MANUAL DIFF)2018-02-01 11:18:00 Test Item Value Reference Range Comments NEUTROPHILS - REL (CELLAVISION)(BEAKER) (test 61 % lblt=5500) LYMPHOCYTES - REL (CELLAVISION)(BEAKER) (test 27 % fxem=2986) MONOCYTES - REL (CELLAVISION)(BEAKER) (test 8 % veyt=6553) EOSINOPHILS - REL (CELLAVISION)(BEAKER) (test 4 % dyzf=4748) NEUTROPHILS - ABS (CELLAVISION)(BEAKER) (test 10.31 K/ul 1.56-6.13 aewq=6936) LYMPHOCYTES - ABS (CELLAVISION)(BEAKER) (test 4.56 K/ul 1.18-3.74 vjgm=9435) MONOCYTES - ABS (CELLAVISION)(BEAKER) (test 1.35 K/uL 0.24-0.36 dhoh=8043) EOSINOPHILS - ABS (CELLAVISION)(BEAKER) (test 0.68 K/uL 0.04-0.36 cmyy=3704) TOTAL COUNTED (BEAKER) (test dkdu=4330) 100 MANUAL NRBC PER 100 CELLS (BEAKER) (test 28 /100 WBC 0-0 ovmy=8910) WBC MORPHOLOGY (BEAKER) (test bkin=475) Normal PLT MORPHOLOGY (BEAKER) (test nvnk=508) Normal POLYCHROMATOPHILLIC RBCS(BEAKER) (test xrvu=665) 2+ moderate ANISOCYTOSIS (BEAKER) (test cxeh=125) 2+ moderate TARGET CELLS (BEAKER) (test xpqv=733) 2+ moderate SICKLE CELLS (BEAKER) (test jvix=442) 1+ few ARTIFACT (CELLAVISION)(BEAKER) (test jiox=9954) Present PLATELET CONCENTRATION (CELLAVISION)(BEAKER) Adequate (test fdvv=9310) Received comment: User comments: Slide comments:BASIC METABOLIC [id number] 06:15:00 Test Item Value Reference Range Comments SODIUM (BEAKER) (test 141 meq/L 136-145 yepd=588) POTASSIUM (BEAKER) (test 4.2 meq/L 3.5-5.1 kxxf=981) CHLORIDE (BEAKER) (test 108 meq/L 98-107 foho=290) CO2 (BEAKER) (test 25 meq/L 22-29 czge=192) BLOOD UREA NITROGEN 11 mg/dL 7-21 (BEAKER) (test aryq=231) CREATININE (BEAKER) (test 0.73 mg/dL 0.57-1.25 qxev=828) GLUCOSE RANDOM (BEAKER) 93 mg/dL 70-105 (test buwx=150) CALCIUM (BEAKER) (test 9.2 mg/dL 8.4-10.2 ttyf=241) EGFR (BEAKER) (test 108 mL/min/1.73 sq m ESTIMATED GFR IS NOT rkos=6292) ACCURATE CREATININE CLEARANCE IN PREDICTING GLOMERULAR FILTRATION RATE. ESTIMATED GFR IS NOT APPLICABLE FOR DIALYSIS PATIENTS. CBC W/PLT COUNT & AUTO [id number] 15:02:00 Test Item Value Reference Range Comments WHITE BLOOD CELL COUNT (BEAKER) (test rxln=583) 18.0 K/ L 3.5-10.5 RED BLOOD CELL COUNT (BEAKER) (test swmi=472) 2.31 M/ L 3.93-5.22 HEMOGLOBIN (BEAKER) (test txha=062) 7.0 GM/DL 11.2-15.7 HEMATOCRIT (BEAKER) (test xnho=872) 22.4 % 34.1-44.9 MEAN CORPUSCULAR VOLUME (BEAKER) (test wrcn=486) 97.0 fL 79.4-94.8 MEAN CORPUSCULAR HEMOGLOBIN (BEAKER) (test 30.3 pg 25.6-32.2 rwen=876) MEAN CORPUSCULAR HEMOGLOBIN CONC (BEAKER) (test 31.3 GM/DL 32.2-35.5 ydfr=803) RED CELL DISTRIBUTION WIDTH (BEAKER) (test 27.9 % 11.7-14.4 abvc=292) PLATELET COUNT (BEAKER) (test oeej=021) 337 K/CU MM 150-450 MEAN PLATELET VOLUME (BEAKER) (test ghus=062) 10.2 fL 9.4-12.3 NUCLEATED RED BLOOD CELLS (BEAKER) (test 63 /100 WBC 0-0 vmgj=456) NEUTROPHILS RELATIVE PERCENT (BEAKER) (test 45 % mrcx=562) LYMPHOCYTES RELATIVE PERCENT (BEAKER) (test 35 % cjei=420) MONOCYTES RELATIVE PERCENT (BEAKER) (test 16 % molr=488) EOSINOPHILS RELATIVE PERCENT (BEAKER) (test 2 % odra=971) BASOPHILS RELATIVE PERCENT (BEAKER) (test 0 % qcqj=049) NEUTROPHILS ABSOLUTE COUNT (BEAKER) (test 8.10 K/ L 1.56-6.13 ltjn=338) LYMPHOCYTES ABSOLUTE COUNT (BEAKER) (test 6.24 K/ L 1.18-3.74 ddhu=808) MONOCYTES ABSOLUTE COUNT (BEAKER) (test 2.96 K/ L 0.24-0.36 uduf=410) EOSINOPHILS ABSOLUTE COUNT (BEAKER) (test 0.38 K/ L 0.04-0.36 xfsz=577) BASOPHILS ABSOLUTE COUNT (BEAKER) (test 0.06 K/ L 0.01-0.08 tuma=761) IMMATURE GRANULOCYTES-RELATIVE PERCENT (BEAKER) 2 % 0-1 (test okfo=6838) (CELLAVISION MANUAL DIFF)2018-01-30 15:02:00 Test Item Value Reference Range Comments TOTAL COUNTED (BEAKER) (test gens=1061) WBC MORPHOLOGY (BEAKER) (test tbqa=963) Normal PLT MORPHOLOGY (BEAKER) (test vsgo=238) Normal POLYCHROMATOPHILLIC RBCS(BEAKER) (test mehk=160) 2+ moderate ANISOCYTOSIS (BEAKER) (test eoha=402) 2+ moderate TARGET CELLS (BEAKER) (test rtop=066) 2+ moderate SICKLE CELLS (BEAKER) (test qjjp=221) 1+ few BASIC METABOLIC [id number] 09:27:00 Test Item Value Reference Range Comments SODIUM (BEAKER) (test 141 meq/L 136-145 imky=661) POTASSIUM (BEAKER) (test 4.0 meq/L 3.5-5.1 onbg=689) CHLORIDE (BEAKER) (test 108 meq/L 98-107 omuc=939) CO2 (BEAKER) (test 24 meq/L 22-29 uvhv=878) BLOOD UREA NITROGEN 12 mg/dL 7-21 (BEAKER) (test wvtf=189) CREATININE (BEAKER) (test 0.80 mg/dL 0.57-1.25 vxtf=064) GLUCOSE RANDOM (BEAKER) 95 mg/dL 70-105 (test xamz=222) CALCIUM (BEAKER) (test 9.5 mg/dL 8.4-10.2 zztl=387) EGFR (BEAKER) (test 97 mL/min/1.73 sq m ESTIMATED GFR IS NOT hnkk=0146) ACCURATE CREATININE CLEARANCE IN PREDICTING GLOMERULAR FILTRATION RATE. ESTIMATED GFR IS NOT APPLICABLE FOR DIALYSIS PATIENTS. [id number] 17:59:00 Test Item Value Reference Range Comments FERRITIN (BEAKER) (test jseo=214) [address]23[address] ng/mL 5-275 CBC W/PLT COUNT & AUTO [id number] 17:20:00 Test Item Value Reference Range Comments WHITE BLOOD CELL COUNT (BEAKER) (test tfmk=014) 19.9 K/ L 3.5-10.5 RED BLOOD CELL COUNT (BEAKER) (test vgea=380) 1.53 M/ L 3.93-5.22 HEMOGLOBIN (BEAKER) (test ydxn=509) 5.0 GM/DL 11.2-15.7 HEMATOCRIT (BEAKER) (test eecp=579) 16.0 % 34.1-44.9 MEAN CORPUSCULAR VOLUME (BEAKER) (test sfia=803) 104.6 fL 79.4-94.8 MEAN CORPUSCULAR HEMOGLOBIN (BEAKER) (test 32.7 pg 25.6-32.2 geht=086) MEAN CORPUSCULAR HEMOGLOBIN CONC (BEAKER) (test 31.3 GM/DL 32.2-35.5 egtl=273) RED CELL DISTRIBUTION WIDTH (BEAKER) (test 33.7 % 11.7-14.4 vbdx=039) PLATELET COUNT (BEAKER) (test ktkg=864) 364 K/CU MM 150-450 MEAN PLATELET VOLUME (BEAKER) (test mtmw=540) 10.4 fL 9.4-12.3 NUCLEATED RED BLOOD CELLS (BEAKER) (test 62 /100 WBC 0-0 negl=391) RETICULOCYTE [id number] 17:20:00 Test Item Value Reference Range Comments RETICULOCYTE COUNT PCT (BEAKER) (test wlab=756) > % 0.5-1.7 (CELLAVISION MANUAL DIFF)2018-01-29 17:20:00 Test Item Value Reference Range Comments TOTAL COUNTED (BEAKER) (test lpcu=0301) RBC MORPHOLOGY (BEAKER) (test xoep=433) Normal WBC MORPHOLOGY (BEAKER) (test habm=014) Normal PLT MORPHOLOGY (BEAKER) (test ndef=660) Normal LACTATE DEHYDROGENASE (LDH)2018-01-29 17:04:00 Test Item Value Reference Range Comments LACTATE DEHYDROGENASE (BEAKER) (test wyzf=214) 989 U/L 125-220 BASIC METABOLIC [id number] 17:04:00 Test Item Value Reference Range Comments SODIUM (BEAKER) (test 138 meq/L 136-145 atur=657) POTASSIUM (BEAKER) (test 4.2 meq/L 3.5-5.1 cyzi=195) CHLORIDE (BEAKER) (test 109 meq/L 98-107 njof=382) CO2 (BEAKER) (test 22 meq/L 22-29 ddjv=992) BLOOD UREA NITROGEN 11 mg/dL 7-21 (BEAKER) (test lbwp=276) CREATININE (BEAKER) (test 0.76 mg/dL 0.57-1.25 yhao=532) GLUCOSE RANDOM (BEAKER) 104 mg/dL 70-105 (test ynlq=544) CALCIUM (BEAKER) (test 9.5 mg/dL 8.4-10.2 yakc=209) EGFR (BEAKER) (test 103 mL/min/1.73 sq m ESTIMATED GFR IS NOT yztu=9897) ACCURATE CREATININE CLEARANCE IN PREDICTING GLOMERULAR FILTRATION RATE. ESTIMATED GFR IS NOT APPLICABLE FOR DIALYSIS PATIENTS. ANTI-MITOCHONDRIAL AB, REFLEX TO [id number] 11:03:00 Test Item Value Reference Range Comments SCAN RESULT (test jxxu=[id number]) CALCIUM, [id number] 07:05:00 Test Item Value Reference Range Comments CALCIUM IONIZED (BEAKER) (test uhoc=637) 1.10 mmol/L 1.12-1.27 PH, BLOOD (BEAKER) (test xzjs=7176) 7.30 [id number] 06:22:00 Test Item Value Reference Range Comments PHOSPHORUS (BEAKER) (test xoqq=203) 4.7 mg/dL 2.3-4.7 [id number] 06:22:00 Test Item Value Reference Range Comments MAGNESIUM (BEAKER) (test xsuo=547) 1.4 mg/dL 1.6-2.6 BASIC METABOLIC [id number] 06:22:00 Test Item Value Reference Range Comments SODIUM (BEAKER) (test 135 meq/L 136-145 mahs=735) POTASSIUM (BEAKER) (test 4.5 meq/L 3.5-5.1 drrw=914) CHLORIDE (BEAKER) (test 100 meq/L 98-107 zzfg=781) CO2 (BEAKER) (test 29 meq/L 22-29 smxc=812) BLOOD UREA NITROGEN 19 mg/dL 7-21 (BEAKER) (test uvis=282) CREATININE (BEAKER) (test 0.76 mg/dL 0.57-1.25 oeky=189) GLUCOSE RANDOM (BEAKER) 104 mg/dL 70-105 (test juzj=470) CALCIUM (BEAKER) (test 9.3 mg/dL 8.4-10.2 cbge=305) EGFR (BEAKER) (test 103 mL/min/1.73 sq m ESTIMATED GFR IS NOT ckkw=0260) ACCURATE CREATININE CLEARANCE IN PREDICTING GLOMERULAR FILTRATION RATE. ESTIMATED GFR IS NOT APPLICABLE FOR DIALYSIS PATIENTS. CREATINE KINASE (CK)2017-11-24 08:12:00 Test Item Value Reference Range Comments CREATINE KINASE TOTAL (BEAKER) (test glni=869) 8 U/L 29-200 URIC [id number] 08:01:00 Test Item Value Reference Range Comments URIC ACID (BEAKER) (test mvjl=148) 4.8 mg/dL 2.6-7.2 [id number] 08:01:00 Test Item Value Reference Range Comments MAGNESIUM (BEAKER) (test rtbh=995) 1.5 mg/dL 1.6-2.6 [id number] 08:01:00 Test Item Value Reference Range Comments PHOSPHORUS (BEAKER) (test rutk=109) 5.3 mg/dL 2.3-4.7 BASIC METABOLIC [id number] 08:01:00 Test Item Value Reference Range Comments SODIUM (BEAKER) (test 138 meq/L 136-145 bctp=110) POTASSIUM (BEAKER) (test 4.9 meq/L 3.5-5.1 coyj=947) CHLORIDE (BEAKER) (test 100 meq/L 98-107 cyri=831) CO2 (BEAKER) (test 28 meq/L 22-29 mkwn=844) BLOOD UREA NITROGEN 22 mg/dL 7-21 (BEAKER) (test sopu=680) CREATININE (BEAKER) (test 0.80 mg/dL 0.57-1.25 pgun=703) GLUCOSE RANDOM (BEAKER) 102 mg/dL 70-105 (test pbgz=477) CALCIUM (BEAKER) (test 9.3 mg/dL 8.4-10.2 iurb=874) EGFR (BEAKER) (test 97 mL/min/1.73 sq m ESTIMATED GFR IS NOT kjoz=5776) ACCURATE CREATININE CLEARANCE IN PREDICTING GLOMERULAR FILTRATION RATE. ESTIMATED GFR IS NOT APPLICABLE FOR DIALYSIS PATIENTS. LACTATE DEHYDROGENASE (LDH)2017-11-24 08:01:00 Test Item Value Reference Range Comments LACTATE DEHYDROGENASE (BEAKER) (test ucks=175) 489 U/L 125-220 [id number] 18:07:00 Test Item Value Reference Range Comments POTASSIUM (BEAKER) (test sacm=561) 5.5 meq/L 3.5-5.1 Call if K > 5.4 to renal 713 790 1032CALCIUM, [id number] 06:51:00 Test Item Value Reference Range Comments CALCIUM IONIZED (BEAKER) (test zgeb=598) 1.08 mmol/L 1.12-1.27 PH, BLOOD (BEAKER) (test amck=1757) 7.35 CBC W/PLT COUNT & AUTO [id number] 06:25:00 Test Item Value Reference Range Comments WHITE BLOOD CELL COUNT (BEAKER) (test zqao=694) 18.3 K/ L 3.5-10.5 RED BLOOD CELL COUNT (BEAKER) (test qwns=425) 2.30 M/ L 3.93-5.22 HEMOGLOBIN (BEAKER) (test qrlf=771) 6.5 GM/DL 11.2-15.7 HEMATOCRIT (BEAKER) (test tfpm=167) 21.1 % 34.1-44.9 MEAN CORPUSCULAR VOLUME (BEAKER) (test gckm=707) 91.7 fL 79.4-94.8 MEAN CORPUSCULAR HEMOGLOBIN (BEAKER) (test 28.3 pg 25.6-32.2 pamc=827) MEAN CORPUSCULAR HEMOGLOBIN CONC (BEAKER) (test 30.8 GM/DL 32.2-35.5 vkvz=807) RED CELL DISTRIBUTION WIDTH (BEAKER) (test 21.2 % 11.7-14.4 rgal=225) PLATELET COUNT (BEAKER) (test xues=418) 414 K/CU MM 150-450 MEAN PLATELET VOLUME (BEAKER) (test etrl=333) 11.5 fL 9.4-12.3 NUCLEATED RED BLOOD CELLS (BEAKER) (test 0 /100 WBC 0-0 hvjz=118) NEUTROPHILS RELATIVE PERCENT (BEAKER) (test 53 % lhcx=695) LYMPHOCYTES RELATIVE PERCENT (BEAKER) (test 25 % alev=338) MONOCYTES RELATIVE PERCENT (BEAKER) (test 19 % epde=107) EOSINOPHILS RELATIVE PERCENT (BEAKER) (test 2 % vgjn=057) BASOPHILS RELATIVE PERCENT (BEAKER) (test 0 % mifk=388) NEUTROPHILS ABSOLUTE COUNT (BEAKER) (test 9.74 K/ L 1.56-6.13 udsr=751) LYMPHOCYTES ABSOLUTE COUNT (BEAKER) (test 4.57 K/ L 1.18-3.74 ehhs=340) MONOCYTES ABSOLUTE COUNT (BEAKER) (test 3.51 K/ L 0.24-0.36 huff=826) EOSINOPHILS ABSOLUTE COUNT (BEAKER) (test 0.29 K/ L 0.04-0.36 iqru=357) BASOPHILS ABSOLUTE COUNT (BEAKER) (test 0.07 K/ L 0.01-0.08 crkr=075) IMMATURE GRANULOCYTES-RELATIVE PERCENT (BEAKER) 1 % 0-1 (test pnqf=9682) [id number] 05:35:00 Test Item Value Reference Range Comments PHOSPHORUS (BEAKER) (test ihaa=712) 4.4 mg/dL 2.3-4.7 [id number] 05:35:00 Test Item Value Reference Range Comments MAGNESIUM (BEAKER) (test fssk=679) 1.3 mg/dL 1.6-2.6 BASIC METABOLIC [id number] 05:35:00 Test Item Value Reference Range Comments SODIUM (BEAKER) (test 136 meq/L 136-145 exmn=403) POTASSIUM (BEAKER) (test 5.4 meq/L 3.5-5.1 tyug=558) CHLORIDE (BEAKER) (test 97 meq/L 98-107 ibtb=875) CO2 (BEAKER) (test 31 meq/L 22-29 rihh=231) BLOOD UREA NITROGEN 20 mg/dL 7-21 (BEAKER) (test nphw=950) CREATININE (BEAKER) (test 0.75 mg/dL 0.57-1.25 qtad=603) GLUCOSE RANDOM (BEAKER) 81 mg/dL 70-105 (test eqht=790) CALCIUM (BEAKER) (test 9.5 mg/dL 8.4-10.2 poua=496) EGFR (BEAKER) (test 105 mL/min/1.73 sq m ESTIMATED GFR IS NOT dzqw=1333) ACCURATE CREATININE CLEARANCE IN PREDICTING GLOMERULAR FILTRATION RATE. ESTIMATED GFR IS NOT APPLICABLE FOR DIALYSIS PATIENTS. [id number] 16:19:00 Test Item Value Reference Range Comments POTASSIUM (BEAKER) (test pnwa=115) 5.2 meq/L 3.5-5.1 Repeat after 3 hours kayexalate was given; call result 598- [id number] 12:53:00 Test Item Value Reference Range Comments SODIUM (BEAKER) (test fjca=772) 137 meq/L 136-145 POTASSIUM (BEAKER) (test btpy=847) 5.4 meq/L 3.5-5.1 CHLORIDE (BEAKER) (test awii=776) 100 meq/L 98-107 CO2 (BEAKER) (test cwpa=872) 30 meq/L 22-29 Call results [id number] 11:14:00 Test Item Value Reference Range Comments POTASSIUM (BEAKER) (test omwz=127) 5.8 meq/L 3.5-5.1 [id number] 06:40:00 Test Item Value Reference Range Comments PHOSPHORUS (BEAKER) (test nlyb=367) 5.4 mg/dL 2.3-4.7 [id number] 06:40:00 Test Item Value Reference Range Comments MAGNESIUM (BEAKER) (test urkr=545) 1.6 mg/dL 1.6-2.6 CALCIUM, [id number] 06:27:00 Test Item Value Reference Range Comments CALCIUM IONIZED (BEAKER) (test lvpl=400) 0.99 mmol/L 1.12-1.27 PH, BLOOD (BEAKER) (test viut=8346) 7.43 CBC W/PLT COUNT & AUTO [id number] 05:53:00 Test Item Value Reference Range Comments WHITE BLOOD CELL COUNT (BEAKER) (test tzeh=007) 16.2 K/ L 3.5-10.5 RED BLOOD CELL COUNT (BEAKER) (test svhc=685) 2.38 M/ L 3.93-5.22 HEMOGLOBIN (BEAKER) (test zmbl=889) 7.0 GM/DL 11.2-15.7 HEMATOCRIT (BEAKER) (test xgfo=481) 22.2 % 34.1-44.9 MEAN CORPUSCULAR VOLUME (BEAKER) (test mfrw=327) 93.3 fL 79.4-94.8 MEAN CORPUSCULAR HEMOGLOBIN (BEAKER) (test 29.4 pg 25.6-32.2 gakw=019) MEAN CORPUSCULAR HEMOGLOBIN CONC (BEAKER) (test 31.5 GM/DL 32.2-35.5 hgzb=531) RED CELL DISTRIBUTION WIDTH (BEAKER) (test 21.3 % 11.7-14.4 yxuo=337) PLATELET COUNT (BEAKER) (test dllv=321) 390 K/CU MM 150-450 MEAN PLATELET VOLUME (BEAKER) (test igag=087) 11.8 fL 9.4-12.3 NUCLEATED RED BLOOD CELLS (BEAKER) (test 0 /100 WBC 0-0 aefr=518) NEUTROPHILS RELATIVE PERCENT (BEAKER) (test 58 % nfpt=293) LYMPHOCYTES RELATIVE PERCENT (BEAKER) (test 23 % ezxe=041) MONOCYTES RELATIVE PERCENT (BEAKER) (test 17 % fqvk=865) EOSINOPHILS RELATIVE PERCENT (BEAKER) (test 2 % siqg=737) BASOPHILS RELATIVE PERCENT (BEAKER) (test 0 % dbwh=516) NEUTROPHILS ABSOLUTE COUNT (BEAKER) (test 9.31 K/ L 1.56-6.13 vbtu=147) LYMPHOCYTES ABSOLUTE COUNT (BEAKER) (test 3.65 K/ L 1.18-3.74 bqmr=698) MONOCYTES ABSOLUTE COUNT (BEAKER) (test 2.70 K/ L 0.24-0.36 ryfk=312) EOSINOPHILS ABSOLUTE COUNT (BEAKER) (test 0.36 K/ L 0.04-0.36 hjcv=815) BASOPHILS ABSOLUTE COUNT (BEAKER) (test 0.04 K/ L 0.01-0.08 clqt=306) IMMATURE GRANULOCYTES-RELATIVE PERCENT (BEAKER) 1 % 0-1 (test xdsv=3604) BASIC METABOLIC [id number] 17:35:00 Test Item Value Reference Range Comments SODIUM (BEAKER) (test 133 meq/L 136-145 anbs=969) POTASSIUM (BEAKER) (test 5.4 meq/L 3.5-5.1 dcfe=627) CHLORIDE (BEAKER) (test 99 meq/L 98-107 qfio=773) CO2 (BEAKER) (test 26 meq/L 22-29 wmwa=992) BLOOD UREA NITROGEN 23 mg/dL 7-21 (BEAKER) (test yoom=286) CREATININE (BEAKER) (test 0.83 mg/dL 0.57-1.25 qktk=945) GLUCOSE RANDOM (BEAKER) 94 mg/dL 70-105 (test tngc=520) CALCIUM (BEAKER) (test 9.2 mg/dL 8.4-10.2 qvul=803) EGFR (BEAKER) (test 93 mL/min/1.73 sq m ESTIMATED GFR IS NOT iamq=7983) ACCURATE CREATININE CLEARANCE IN PREDICTING GLOMERULAR FILTRATION RATE. ESTIMATED GFR IS NOT APPLICABLE FOR DIALYSIS PATIENTS. [id number] 06:33:00 Test Item Value Reference Range Comments PHOSPHORUS (BEAKER) (test hfwq=955) 5.3 mg/dL 2.3-4.7 [id number] 06:33:00 Test Item Value Reference Range Comments MAGNESIUM (BEAKER) (test ncfq=608) 1.6 mg/dL 1.6-2.6 BASIC METABOLIC [id number] 06:33:00 Test Item Value Reference Range Comments SODIUM (BEAKER) (test 133 meq/L 136-145 xotd=068) POTASSIUM (BEAKER) (test 5.2 meq/L 3.5-5.1 oyhx=760) CHLORIDE (BEAKER) (test 97 meq/L 98-107 nqrb=178) CO2 (BEAKER) (test 29 meq/L 22-29 sgwa=727) BLOOD UREA NITROGEN 23 mg/dL 7-21 (BEAKER) (test nmeo=260) CREATININE (BEAKER) (test 0.77 mg/dL 0.57-1.25 mpve=512) GLUCOSE RANDOM (BEAKER) 92 mg/dL 70-105 (test mmdd=379) CALCIUM (BEAKER) (test 9.4 mg/dL 8.4-10.2 vflb=354) EGFR (BEAKER) (test 102 mL/min/1.73 sq m ESTIMATED GFR IS NOT rxbr=1230) ACCURATE CREATININE CLEARANCE IN PREDICTING GLOMERULAR FILTRATION RATE. ESTIMATED GFR IS NOT APPLICABLE FOR DIALYSIS PATIENTS. CALCIUM, [id number] 06:22:00 Test Item Value Reference Range Comments CALCIUM IONIZED (BEAKER) (test cwcn=934) 1.18 mmol/L 1.12-1.27 PH, BLOOD (BEAKER) (test btqe=8326) 7.32 B-TYPE NATRIURETIC FACTOR (BNP)2017-11-21 06:19:00 Test Item Value Reference Range Comments B-TYPE NATRIURETIC PEPTIDE (BEAKER) (test 120 pg/mL 0-100 jgex=837) CBC W/PLT COUNT & AUTO [id number] 05:59:00 Test Item Value Reference Range Comments WHITE BLOOD CELL COUNT (BEAKER) (test jexx=652) 17.4 K/ L 3.5-10.5 RED BLOOD CELL COUNT (BEAKER) (test xrxm=508) 2.32 M/ L 3.93-5.22 HEMOGLOBIN (BEAKER) (test wnui=641) 6.7 GM/DL 11.2-15.7 HEMATOCRIT (BEAKER) (test onvc=668) 21.6 % 34.1-44.9 MEAN CORPUSCULAR VOLUME (BEAKER) (test zaxc=135) 93.1 fL 79.4-94.8 MEAN CORPUSCULAR HEMOGLOBIN (BEAKER) (test 28.9 pg 25.6-32.2 jiff=575) MEAN CORPUSCULAR HEMOGLOBIN CONC (BEAKER) (test 31.0 GM/DL 32.2-35.5 vosu=768) RED CELL DISTRIBUTION WIDTH (BEAKER) (test 20.9 % 11.7-14.4 mkhm=764) PLATELET COUNT (BEAKER) (test yhkn=790) 367 K/CU MM 150-450 MEAN PLATELET VOLUME (BEAKER) (test yknc=954) 12.1 fL 9.4-12.3 NUCLEATED RED BLOOD CELLS (BEAKER) (test 0 /100 WBC 0-0 qrbm=327) NEUTROPHILS RELATIVE PERCENT (BEAKER) (test 58 % afrt=899) LYMPHOCYTES RELATIVE PERCENT (BEAKER) (test 23 % xbpv=102) MONOCYTES RELATIVE PERCENT (BEAKER) (test 16 % nndx=646) EOSINOPHILS RELATIVE PERCENT (BEAKER) (test 3 % dtkw=326) BASOPHILS RELATIVE PERCENT (BEAKER) (test 1 % oqsm=583) NEUTROPHILS ABSOLUTE COUNT (BEAKER) (test 10.09 K/ L 1.56-6.13 ydki=701) LYMPHOCYTES ABSOLUTE COUNT (BEAKER) (test 3.92 K/ L 1.18-3.74 pcbt=355) MONOCYTES ABSOLUTE COUNT (BEAKER) (test 2.71 K/ L 0.24-0.36 yqti=495) EOSINOPHILS ABSOLUTE COUNT (BEAKER) (test 0.46 K/ L 0.04-0.36 qmwq=535) BASOPHILS ABSOLUTE COUNT (BEAKER) (test 0.08 K/ L 0.01-0.08 meih=095) IMMATURE GRANULOCYTES-RELATIVE PERCENT (BEAKER) 1 % 0-1 (test lubv=9713) BLOOD GAS, [id number] 07:22:00 Test Item Value Reference Range Comments PH VENOUS (BEAKER) (test axhx=410) 7.34 7.32-7.42 PCO2 VENOUS (BEAKER) (test gcdp=463) 63 mmHg 41-51 PO2 VENOUS (BEAKER) (test dizx=919) 133 mmHg 25-40 O2 SATURATION VENOUS (BEAKER) (test rnpo=209) 98.4 % 40.0-70.0 HCO3 VENOUS (BEAKER) (test hufu=864) 33 mmol/L 21-29 BASE EXCESS VENOUS (BEAKER) (test wktf=320) 6.6 mmol/L -2.0-3.0 PATIENT TEMPERATURE (BEAKER) (test prcc=5240) 37.0 C FIO2 (BEAKER) (test rjyq=5450) 21.0 % CALCIUM, [id number] 07:20:00 Test Item Value Reference Range Comments CALCIUM IONIZED (BEAKER) (test izwj=663) 1.10 mmol/L 1.12-1.27 PH, BLOOD (BEAKER) (test huga=7155) 7.33 [id number] 07:18:00 Test Item Value Reference Range Comments PHOSPHORUS (BEAKER) (test frsy=502) 4.8 mg/dL 2.3-4.7 [id number] 07:18:00 Test Item Value Reference Range Comments MAGNESIUM (BEAKER) (test lfxq=537) 1.6 mg/dL 1.6-2.6 BASIC METABOLIC [id number] 07:18:00 Test Item Value Reference Range Comments SODIUM (BEAKER) (test 137 meq/L 136-145 uxzy=608) POTASSIUM (BEAKER) (test 4.8 meq/L 3.5-5.1 oevt=718) CHLORIDE (BEAKER) (test 99 meq/L 98-107 lvzw=170) CO2 (BEAKER) (test 31 meq/L 22-29 ojbd=223) BLOOD UREA NITROGEN 20 mg/dL 7-21 (BEAKER) (test dyfr=151) CREATININE (BEAKER) (test 0.83 mg/dL 0.57-1.25 xnof=949) GLUCOSE RANDOM (BEAKER) 117 mg/dL 70-105 (test gakm=645) CALCIUM (BEAKER) (test 9.5 mg/dL 8.4-10.2 sbqk=809) EGFR (BEAKER) (test 93 mL/min/1.73 sq m ESTIMATED GFR IS NOT xgbg=7913) ACCURATE CREATININE CLEARANCE IN PREDICTING GLOMERULAR FILTRATION RATE. ESTIMATED GFR IS NOT APPLICABLE FOR DIALYSIS PATIENTS. CBC W/PLT COUNT & AUTO [id number] 07:14:00 Test Item Value Reference Range Comments WHITE BLOOD CELL COUNT (BEAKER) (test dpid=178) 16.7 K/ L 3.5-10.5 RED BLOOD CELL COUNT (BEAKER) (test qiml=912) 2.39 M/ L 3.93-5.22 HEMOGLOBIN (BEAKER) (test cqbd=507) 6.9 GM/DL 11.2-15.7 HEMATOCRIT (BEAKER) (test yghi=481) 22.3 % 34.1-44.9 MEAN CORPUSCULAR VOLUME (BEAKER) (test kpcb=792) 93.3 fL 79.4-94.8 MEAN CORPUSCULAR HEMOGLOBIN (BEAKER) (test 28.9 pg 25.6-32.2 dmwd=115) MEAN CORPUSCULAR HEMOGLOBIN CONC (BEAKER) (test 30.9 GM/DL 32.2-35.5 xwov=542) RED CELL DISTRIBUTION WIDTH (BEAKER) (test 21.1 % 11.7-14.4 auyk=499) PLATELET COUNT (BEAKER) (test hbrg=053) 344 K/CU MM 150-450 MEAN PLATELET VOLUME (BEAKER) (test yxed=117) 11.7 fL 9.4-12.3 NUCLEATED RED BLOOD CELLS (BEAKER) (test 0 /100 WBC 0-0 qggn=798) NEUTROPHILS RELATIVE PERCENT (BEAKER) (test 60 % sqff=683) LYMPHOCYTES RELATIVE PERCENT (BEAKER) (test 23 % yomq=275) MONOCYTES RELATIVE PERCENT (BEAKER) (test 14 % pxkz=941) EOSINOPHILS RELATIVE PERCENT (BEAKER) (test 3 % ssaq=109) BASOPHILS RELATIVE PERCENT (BEAKER) (test 0 % dzod=929) NEUTROPHILS ABSOLUTE COUNT (BEAKER) (test 9.95 K/ L 1.56-6.13 zonx=210) LYMPHOCYTES ABSOLUTE COUNT (BEAKER) (test 3.92 K/ L 1.18-3.74 yalu=028) MONOCYTES ABSOLUTE COUNT (BEAKER) (test 2.29 K/ L 0.24-0.36 dcbf=976) EOSINOPHILS ABSOLUTE COUNT (BEAKER) (test 0.45 K/ L 0.04-0.36 hgpt=790) BASOPHILS ABSOLUTE COUNT (BEAKER) (test 0.04 K/ L 0.01-0.08 giwf=890) IMMATURE GRANULOCYTES-RELATIVE PERCENT (BEAKER) 0 % 0-1 (test ngan=8231) [id number] 11:18:00 Test Item Value Reference Range Comments FERRITIN (BEAKER) (test qwrm=147) 48627 ng/mL 5-275 [id number] 07:10:00 Test Item Value Reference Range Comments MAGNESIUM (BEAKER) (test btqv=932) 2.0 mg/dL 1.6-2.6 BASIC METABOLIC [id number] 07:10:00 Test Item Value Reference Range Comments SODIUM (BEAKER) (test 137 meq/L 136-145 vqio=925) POTASSIUM (BEAKER) (test 4.5 meq/L 3.5-5.1 mfge=097) CHLORIDE (BEAKER) (test 99 meq/L 98-107 jkgb=201) CO2 (BEAKER) (test 35 meq/L 22-29 lohf=546) BLOOD UREA NITROGEN 18 mg/dL 7-21 (BEAKER) (test qvdw=173) CREATININE (BEAKER) (test 0.78 mg/dL 0.57-1.25 avgn=531) GLUCOSE RANDOM (BEAKER) 102 mg/dL 70-105 (test ccrr=101) CALCIUM (BEAKER) (test 9.4 mg/dL 8.4-10.2 svvd=870) EGFR (BEAKER) (test 100 mL/min/1.73 sq m ESTIMATED GFR IS NOT xgem=2771) ACCURATE CREATININE CLEARANCE IN PREDICTING GLOMERULAR FILTRATION RATE. ESTIMATED GFR IS NOT APPLICABLE FOR DIALYSIS PATIENTS. CBC (HEMOGRAM ONLY)2017-11-19 07:06:00 Test Item Value Reference Range Comments WHITE BLOOD CELL COUNT (BEAKER) (test meda=861) 15.3 K/ L 3.5-10.5 RED BLOOD CELL COUNT (BEAKER) (test gmmm=619) 2.42 M/ L 3.93-5.22 HEMOGLOBIN (BEAKER) (test ukwf=729) 7.1 GM/DL 11.2-15.7 HEMATOCRIT (BEAKER) (test fsur=108) 22.5 % 34.1-44.9 MEAN CORPUSCULAR VOLUME (BEAKER) (test tcaw=995) 93.0 fL 79.4-94.8 MEAN CORPUSCULAR HEMOGLOBIN (BEAKER) (test 29.3 pg 25.6-32.2 frju=897) MEAN CORPUSCULAR HEMOGLOBIN CONC (BEAKER) (test 31.6 GM/DL 32.2-35.5 pqjo=839) RED CELL DISTRIBUTION WIDTH (BEAKER) (test 20.9 % 11.7-14.4 jcpj=877) PLATELET COUNT (BEAKER) (test dald=270) 324 K/CU MM 150-450 MEAN PLATELET VOLUME (BEAKER) (test mfyy=625) 11.8 fL 9.4-12.3 NUCLEATED RED BLOOD CELLS (BEAKER) (test 1 /100 WBC 0-0 xdfm=275) BLOOD [id number] 06:00:00 Test Item Value Reference Range Comments CULTURE (BEAKER) (test isxp=1580) No growth in 5 days ANTI-NUCLEAR ANTIBODY (AMARILYS)2017-11-17 14:21:00 Test Item Value Reference Range Comments ANTI-NUCLEAR ANTIBODY (AMARILYS) (BEAKER) (test Positive Negative tdvy=710) AMARILYS TITER AND [id number] 14:21:00 Test Item Value Reference Range Comments AMARILYS TITER (BEAKER) (test :160 dyam=1438) AMARILYS PATTERN (BEAKER) (test Multiple nuclear dots pattern ejtc=8300) [id number] 07:16:00 Test Item Value Reference Range Comments PHOSPHORUS (BEAKER) (test nkqb=079) 4.5 mg/dL 2.3-4.7 [id number] 07:16:00 Test Item Value Reference Range Comments MAGNESIUM (BEAKER) (test jxtc=422) 1.4 mg/dL 1.6-2.6 BASIC METABOLIC [id number] 07:16:00 Test Item Value Reference Range Comments SODIUM (BEAKER) (test 141 meq/L 136-145 ztuv=858) POTASSIUM (BEAKER) (test 4.2 meq/L 3.5-5.1 lgnf=847) CHLORIDE (BEAKER) (test 98 meq/L 98-107 jtgx=384) CO2 (BEAKER) (test 34 meq/L 22-29 xmuh=962) BLOOD UREA NITROGEN 21 mg/dL 7-21 (BEAKER) (test eycy=403) CREATININE (BEAKER) (test 0.85 mg/dL 0.57-1.25 cnqp=965) GLUCOSE RANDOM (BEAKER) 98 mg/dL 70-105 (test qsqc=820) CALCIUM (BEAKER) (test 9.2 mg/dL 8.4-10.2 nvje=129) EGFR (BEAKER) (test 91 mL/min/1.73 sq m ESTIMATED GFR IS NOT vifz=9758) ACCURATE CREATININE CLEARANCE IN PREDICTING GLOMERULAR FILTRATION RATE. ESTIMATED GFR IS NOT APPLICABLE FOR DIALYSIS PATIENTS. HEPATIC FUNCTION [id number] 07:16:00 Test Item Value Reference Range Comments TOTAL PROTEIN (BEAKER) (test pyfd=018) 8.3 gm/dL 6.0-8.3 ALBUMIN (BEAKER) (test agkh=5230) 3.0 g/dL 3.5-5.0 BILIRUBIN TOTAL (BEAKER) (test meat=994) 1.3 mg/dL 0.2-1.2 BILIRUBIN DIRECT (BEAKER) (test sasr=651) 0.7 mg/dL 0.1-0.5 ALKALINE PHOSPHATASE (BEAKER) (test mpok=229) 217 U/L 40-150 AST (SGOT) (BEAKER) (test fxij=431) 106 U/L 5-34 ALT (SGPT) (BEAKER) (test ybff=158) 46 U/L 6-55 CALCIUM, [id number] 06:50:00 Test Item Value Reference Range Comments CALCIUM IONIZED (BEAKER) (test tmvh=171) 1.11 mmol/L 1.12-1.27 PH, BLOOD (BEAKER) (test atur=6439) 7.34 CBC W/PLT COUNT & AUTO [id number] 06:09:00 Test Item Value Reference Range Comments WHITE BLOOD CELL COUNT (BEAKER) (test ytlc=127) 16.8 K/ L 3.5-10.5 RED BLOOD CELL COUNT (BEAKER) (test sefg=362) 2.53 M/ L 3.93-5.22 HEMOGLOBIN (BEAKER) (test nfaw=885) 7.3 GM/DL 11.2-15.7 HEMATOCRIT (BEAKER) (test mzic=267) 23.3 % 34.1-44.9 MEAN CORPUSCULAR VOLUME (BEAKER) (test dgra=456) 92.1 fL 79.4-94.8 MEAN CORPUSCULAR HEMOGLOBIN (BEAKER) (test 28.9 pg 25.6-32.2 dyvs=573) MEAN CORPUSCULAR HEMOGLOBIN CONC (BEAKER) (test 31.3 GM/DL 32.2-35.5 sdtf=993) RED CELL DISTRIBUTION WIDTH (BEAKER) (test 20.2 % 11.7-14.4 ebfe=723) PLATELET COUNT (BEAKER) (test gxfj=089) 305 K/CU MM 150-450 MEAN PLATELET VOLUME (BEAKER) (test byqe=236) 12.0 fL 9.4-12.3 NUCLEATED RED BLOOD CELLS (BEAKER) (test 1 /100 WBC 0-0 ldxh=414) NEUTROPHILS RELATIVE PERCENT (BEAKER) (test 66 % oydf=700) LYMPHOCYTES RELATIVE PERCENT (BEAKER) (test 20 % ueuh=282) MONOCYTES RELATIVE PERCENT (BEAKER) (test 11 % khti=739) EOSINOPHILS RELATIVE PERCENT (BEAKER) (test 3 % svbr=884) BASOPHILS RELATIVE PERCENT (BEAKER) (test 0 % xcqk=138) NEUTROPHILS ABSOLUTE COUNT (BEAKER) (test 10.99 K/ L 1.56-6.13 fogh=893) LYMPHOCYTES ABSOLUTE COUNT (BEAKER) (test 3.29 K/ L 1.18-3.74 wcpe=797) MONOCYTES ABSOLUTE COUNT (BEAKER) (test 1.89 K/ L 0.24-0.36 ztnb=273) EOSINOPHILS ABSOLUTE COUNT (BEAKER) (test 0.48 K/ L 0.04-0.36 mtte=553) BASOPHILS ABSOLUTE COUNT (BEAKER) (test 0.05 K/ L 0.01-0.08 wxlr=779) IMMATURE GRANULOCYTES-RELATIVE PERCENT (BEAKER) 0 % 0-1 (test wubl=3062) HEPATITIS PANEL, [id number] 14:32:00 Test Item Value Reference Range Comments HEPATITIS A IGM ANTIBODY (BEAKER) (test Nonreactive Nonreactive jxas=367) HEPATITIS B CORE IGM ANTIBODY (BEAKER) (test Nonreactive Nonreactive lund=033) HEPATITIS C ANTIBODY (BEAKER) (test xhrl=646) Nonreactive Nonreactive HEPATITIS B SURFACE ANTIGEN (2) (BEAKER) (test Nonreactive Nonreactive gzrb=4895) RAD, MANDIBLE, LESS THAN 4 [id number] 12:28:00Reason for exam:->fever, dental cariesFINAL REPORT Mandible [...] air cells are well aerated. Signed: Anselmo CainepSeatNinja Verified Date/Time: 11/16/2017 12:28:43 Reading Location: [facility] Radiology Reading Room RAD, CHEST, 2 [id number] 10:47:00Reason for exam:-> fever, chest painFINAL REPORT [...] No pneumothorax is seen. Signed: Anselmo Cain MDReport Verified Date/Time: 11/16/2017 10:47:19 Reading Location: [facility] Radiology Reading Room URINE [id number] 09:53:00 Test Item Value Reference Range Comments CULTURE (BEAKER) (test kkqi=9582) >100,000 col/mL skin valentino CBC W/PLT COUNT & AUTO [id number] 09:20:00 Test Item Value Reference Range Comments WHITE BLOOD CELL COUNT (BEAKER) (test jyux=215) 18.6 K/ L 3.5-10.5 RED BLOOD CELL COUNT (BEAKER) (test wlbq=031) 2.63 M/ L 3.93-5.22 HEMOGLOBIN (BEAKER) (test pyer=129) 7.6 GM/DL 11.2-15.7 HEMATOCRIT (BEAKER) (test mzst=493) 23.8 % 34.1-44.9 MEAN CORPUSCULAR VOLUME (BEAKER) (test jzwo=797) 90.5 fL 79.4-94.8 MEAN CORPUSCULAR HEMOGLOBIN (BEAKER) (test 28.9 pg 25.6-32.2 ysyk=793) MEAN CORPUSCULAR HEMOGLOBIN CONC (BEAKER) (test 31.9 GM/DL 32.2-35.5 webo=120) RED CELL DISTRIBUTION WIDTH (BEAKER) (test 19.9 % 11.7-14.4 ywqg=182) PLATELET COUNT (BEAKER) (test atzd=489) 330 K/CU MM 150-450 MEAN PLATELET VOLUME (BEAKER) (test iddo=186) 11.9 fL 9.4-12.3 NUCLEATED RED BLOOD CELLS (BEAKER) (test 1 /100 WBC 0-0 dvfn=726) NEUTROPHILS RELATIVE PERCENT (BEAKER) (test 65 % rkzr=700) LYMPHOCYTES RELATIVE PERCENT (BEAKER) (test 22 % entz=280) MONOCYTES RELATIVE PERCENT (BEAKER) (test 10 % nqrz=053) EOSINOPHILS RELATIVE PERCENT (BEAKER) (test 2 % jvor=989) BASOPHILS RELATIVE PERCENT (BEAKER) (test 0 % cuwx=036) NEUTROPHILS ABSOLUTE COUNT (BEAKER) (test 12.09 K/ L 1.56-6.13 ubzp=303) LYMPHOCYTES ABSOLUTE COUNT (BEAKER) (test 4.02 K/ L 1.18-3.74 flmb=630) MONOCYTES ABSOLUTE COUNT (BEAKER) (test 1.90 K/ L 0.24-0.36 hqnq=624) EOSINOPHILS ABSOLUTE COUNT (BEAKER) (test 0.41 K/ L 0.04-0.36 jdgk=636) BASOPHILS ABSOLUTE COUNT (BEAKER) (test 0.05 K/ L 0.01-0.08 rgxe=424) IMMATURE GRANULOCYTES-RELATIVE PERCENT (BEAKER) 0 % 0-1 (test gkwg=1409) (MANUAL DIFFERENTIAL)2017-11-16 09:20:00 Test Item Value Reference Range Comments TOTAL COUNTED (BEAKER) (test hxlk=7486) WBC MORPHOLOGY (BEAKER) (test ldrp=085) Normal PLT MORPHOLOGY (BEAKER) (test fhtf=095) Normal POLYCHROMATOPHILLIC RBCS(BEAKER) (test gnwy=413) 1+ few SICKLE CELLS (BEAKER) (test ohjo=718) 1+ few TARGET CELLS (BEAKER) (test vliu=579) 2+ moderate CALCIUM, [id number] 07:28:00 Test Item Value Reference Range Comments CALCIUM IONIZED (BEAKER) (test slca=045) 0.97 mmol/L 1.12-1.27 PH, BLOOD (BEAKER) (test swtw=3492) 7.45 [id number] 05:48:00 Test Item Value Reference Range Comments PHOSPHORUS (BEAKER) (test swcc=527) 4.8 mg/dL 2.3-4.7 [id number] 05:48:00 Test Item Value Reference Range Comments MAGNESIUM (BEAKER) (test fudw=234) 1.6 mg/dL 1.6-2.6 BASIC METABOLIC [id number] 05:48:00 Test Item Value Reference Range Comments SODIUM (BEAKER) (test 139 meq/L 136-145 buhy=003) POTASSIUM (BEAKER) (test 3.9 meq/L 3.5-5.1 ggjb=280) CHLORIDE (BEAKER) (test 98 meq/L 98-107 ztqc=247) CO2 (BEAKER) (test 32 meq/L 22-29 sgxj=139) BLOOD UREA NITROGEN 23 mg/dL 7-21 (BEAKER) (test fuas=626) CREATININE (BEAKER) (test 1.10 mg/dL 0.57-1.25 oxii=324) GLUCOSE RANDOM (BEAKER) 115 mg/dL 70-105 (test fqlm=110) CALCIUM (BEAKER) (test 9.0 mg/dL 8.4-10.2 pfym=473) EGFR (BEAKER) (test 67 mL/min/1.73 sq m ESTIMATED GFR IS NOT wojd=3127) ACCURATE CREATININE CLEARANCE IN PREDICTING GLOMERULAR FILTRATION RATE. ESTIMATED GFR IS NOT APPLICABLE FOR DIALYSIS PATIENTS. URINALYSIS W/ [id number] 19:14:00 Test Item Value Reference Range Comments COLOR (BEAKER) (test njyk=616) Yellow CLARITY (BEAKER) (test lrdk=328) Clear SPECIFIC GRAVITY UA (BEAKER) (test pvpe=747) 1.006 1.001-1.035 PH UA (BEAKER) (test jrta=294) 7.5 5.0-8.0 PROTEIN UA (BEAKER) (test hbmr=157) Negative Negative GLUCOSE UA (BEAKER) (test epda=248) Negative Negative KETONES UA (BEAKER) (test uszh=109) Negative Negative BILIRUBIN UA (BEAKER) (test jwnr=391) Negative Negative BLOOD UA (BEAKER) (test svzp=740) Trace Negative NITRITE UA (BEAKER) (test aond=395) Negative Negative LEUKOCYTE ESTERASE UA (BEAKER) (test ocll=396) Small Negative UROBILINOGEN UA (BEAKER) (test xrzf=967) 0.2 mg/dL 0.2-1.0 RBC UA (BEAKER) (test uyrb=727) < /HPF WBC UA (BEAKER) (test ddrr=172) 7 /HPF BACTERIA (BEAKER) (test lhzc=315) Rare SQUAMOUS EPITHELIAL (BEAKER) (test dzat=106) 1 /HPF SOURCE(BEAKER) (test qmyw=5236) Urine, Voided [id number] 13:26:00 Test Item Value Reference Range Comments LIPASE (BEAKER) (test vsyv=940) 95 U/L 8-78 RAD, ABDOMEN/KUB, 1 VIEW [id number] 12:43:00Reason for exam:->abdominal painFINAL REPORT Abdomen one [...] nonspecific mild lung base opacities. Signed: Anselmo Caineport Verified Date/Time: 11/15/2017 12:43:04 Reading Location: [facility] Radiology Reading Room CBC W/PLT COUNT & AUTO [id number] 10:00:00 Test Item Value Reference Range Comments WHITE BLOOD CELL COUNT (BEAKER) (test ddar=640) 18.8 K/ L 3.5-10.5 RED BLOOD CELL COUNT (BEAKER) (test onmh=574) 1.83 M/ L 3.93-5.22 HEMOGLOBIN (BEAKER) (test uiyb=467) 5.4 GM/DL 11.2-15.7 HEMATOCRIT (BEAKER) (test fkna=388) 16.7 % 34.1-44.9 MEAN CORPUSCULAR VOLUME (BEAKER) (test ioef=464) 91.3 fL 79.4-94.8 MEAN CORPUSCULAR HEMOGLOBIN (BEAKER) (test 29.5 pg 25.6-32.2 fnet=277) MEAN CORPUSCULAR HEMOGLOBIN CONC (BEAKER) (test 32.3 GM/DL 32.2-35.5 jcpk=736) RED CELL DISTRIBUTION WIDTH (BEAKER) (test 21.7 % 11.7-14.4 jqzi=211) PLATELET COUNT (BEAKER) (test xwdk=195) 340 K/CU MM 150-450 MEAN PLATELET VOLUME (BEAKER) (test wmkf=022) 11.3 fL 9.4-12.3 NUCLEATED RED BLOOD CELLS (BEAKER) (test 2 /100 WBC 0-0 pskv=688) NEUTROPHILS RELATIVE PERCENT (BEAKER) (test 65 % tnsn=464) LYMPHOCYTES RELATIVE PERCENT (BEAKER) (test 23 % qfjl=423) MONOCYTES RELATIVE PERCENT (BEAKER) (test 10 % xpby=553) EOSINOPHILS RELATIVE PERCENT (BEAKER) (test 1 % qxac=566) BASOPHILS RELATIVE PERCENT (BEAKER) (test 0 % wwqh=291) NEUTROPHILS ABSOLUTE COUNT (BEAKER) (test 12.25 K/ L 1.56-6.13 efps=525) LYMPHOCYTES ABSOLUTE COUNT (BEAKER) (test 4.31 K/ L 1.18-3.74 jngw=362) MONOCYTES ABSOLUTE COUNT (BEAKER) (test 1.88 K/ L 0.24-0.36 eawp=923) EOSINOPHILS ABSOLUTE COUNT (BEAKER) (test 0.26 K/ L 0.04-0.36 nxno=601) BASOPHILS ABSOLUTE COUNT (BEAKER) (test 0.02 K/ L 0.01-0.08 pazt=298) IMMATURE GRANULOCYTES-RELATIVE PERCENT (BEAKER) 1 % 0-1 (test ujym=4733) (MANUAL DIFFERENTIAL)2017-11-15 10:00:00 Test Item Value Reference Range Comments TOTAL COUNTED (BEAKER) (test fofy=8961) ATYPICAL LYMPHS(BEAKER) (test sfeb=1555) Present LARGE PLT(BEAKER) (test yqxq=2039) Present HYPOCHROMIA (BEAKER) (test akqk=332) 1+ few POLYCHROMATOPHILLIC RBCS(BEAKER) (test ynhe=056) 1+ few SICKLE CELLS (BEAKER) (test dwsu=712) 1+ few TARGET CELLS (BEAKER) (test tfdk=114) 1+ few U/S, ENDOVAGINAL (EV)2017-11-15 09:03:00Reason for [...] MDReport Verified Date/Time: 2017 09:03:15 Reading Location: [facility] [id number] Ultrasound Reading Room CBC W/ PLT COUNT & AUTO [id number] 08:32:00 Test Item Value Reference Range Comments WHITE BLOOD CELL COUNT (BEAKER) (test sjpm=695) 19.8 K/ L 3.5-10.5 RED BLOOD CELL COUNT (BEAKER) (test mcpa=886) 1.89 M/ L 3.93-5.22 HEMOGLOBIN (BEAKER) (test tmrc=262) 5.6 GM/DL 11.2-15.7 HEMATOCRIT (BEAKER) (test ufsq=804) 17.2 % 34.1-44.9 MEAN CORPUSCULAR VOLUME (BEAKER) (test jcki=898) 91.0 fL 79.4-94.8 MEAN CORPUSCULAR HEMOGLOBIN (BEAKER) (test 29.6 pg 25.6-32.2 wifs=695) MEAN CORPUSCULAR HEMOGLOBIN CONC (BEAKER) (test 32.6 GM/DL 32.2-35.5 exzz=145) RED CELL DISTRIBUTION WIDTH (BEAKER) (test 21.4 % 11.7-14.4 zduk=925) PLATELET COUNT (BEAKER) (test bwua=798) 366 K/CU MM 150-450 MEAN PLATELET VOLUME (BEAKER) (test dpat=408) 11.6 fL 9.4-12.3 NUCLEATED RED BLOOD CELLS (BEAKER) (test 2 /100 WBC 0-0 gfax=858) NEUTROPHILS RELATIVE PERCENT (BEAKER) (test 70 % ggft=887) LYMPHOCYTES RELATIVE PERCENT (BEAKER) (test 18 % wqnn=040) MONOCYTES RELATIVE PERCENT (BEAKER) (test 10 % brtj=242) EOSINOPHILS RELATIVE PERCENT (BEAKER) (test 1 % adlk=899) BASOPHILS RELATIVE PERCENT (BEAKER) (test 0 % kzvf=929) NEUTROPHILS ABSOLUTE COUNT (BEAKER) (test 13.93 K/ L 1.56-6.13 vbxy=117) LYMPHOCYTES ABSOLUTE COUNT (BEAKER) (test 3.51 K/ L 1.18-3.74 olko=704) MONOCYTES ABSOLUTE COUNT (BEAKER) (test 2.03 K/ L 0.24-0.36 vjkg=335) EOSINOPHILS ABSOLUTE COUNT (BEAKER) (test 0.23 K/ L 0.04-0.36 mvdt=885) BASOPHILS ABSOLUTE COUNT (BEAKER) (test 0.02 K/ L 0.01-0.08 crdf=859) IMMATURE GRANULOCYTES-RELATIVE PERCENT (BEAKER) 0 % 0-1 (test ypjc=9273) [id number] 06:16:00 Test Item Value Reference Range Comments PHOSPHORUS (BEAKER) (test fabe=552) 4.6 mg/dL 2.3-4.7 [id number] 06:16:00 Test Item Value Reference Range Comments MAGNESIUM (BEAKER) (test inor=216) 1.6 mg/dL 1.6-2.6 BASIC METABOLIC [id number] 06:16:00 Test Item Value Reference Range Comments SODIUM (BEAKER) (test 139 meq/L 136-145 btuq=768) POTASSIUM (BEAKER) (test 3.9 meq/L 3.5-5.1 ztbr=799) CHLORIDE (BEAKER) (test 97 meq/L 98-107 notp=946) CO2 (BEAKER) (test 33 meq/L 22-29 bwaa=206) BLOOD UREA NITROGEN 24 mg/dL 7-21 (BEAKER) (test utnd=031) CREATININE (BEAKER) (test 1.15 mg/dL 0.57-1.25 esce=987) GLUCOSE RANDOM (BEAKER) 104 mg/dL 70-105 (test olsj=380) CALCIUM (BEAKER) (test 9.1 mg/dL 8.4-10.2 fgli=240) EGFR (BEAKER) (test 64 mL/min/1.73 sq m ESTIMATED GFR IS NOT mdaz=5077) ACCURATE CREATININE CLEARANCE IN PREDICTING GLOMERULAR FILTRATION RATE. ESTIMATED GFR IS NOT APPLICABLE FOR DIALYSIS PATIENTS. HEPATIC FUNCTION [id number] 06:16:00 Test Item Value Reference Range Comments TOTAL PROTEIN (BEAKER) (test bbyv=436) 8.2 gm/dL 6.0-8.3 ALBUMIN (BEAKER) (test zoox=6955) 2.9 g/dL 3.5-5.0 BILIRUBIN TOTAL (BEAKER) (test jcgu=493) 1.1 mg/dL 0.2-1.2 BILIRUBIN DIRECT (BEAKER) (test dwld=178) 0.5 mg/dL 0.1-0.5 ALKALINE PHOSPHATASE (BEAKER) (test hlhu=971) 164 U/L 40-150 AST (SGOT) (BEAKER) (test fufd=171) 76 U/L 5-34 ALT (SGPT) (BEAKER) (test ubzu=574) 34 U/L 6-55 CALCIUM, [id number] 06:00:00 Test Item Value Reference Range Comments CALCIUM IONIZED (BEAKER) (test fdym=642) 0.93 mmol/L 1.12-1.27 PH, BLOOD (BEAKER) (test jssy=9914) 7.52 URINALYSIS W/ [id number] 18:32:00 Test Item Value Reference Range Comments COLOR (BEAKER) (test vobf=025) Light Yellow CLARITY (BEAKER) (test lizr=483) Clear SPECIFIC GRAVITY UA (BEAKER) (test kzdb=443) 1.006 1.001-1.035 PH UA (BEAKER) (test zxjx=253) 7.0 5.0-8.0 PROTEIN UA (BEAKER) (test xqir=048) Negative Negative GLUCOSE UA (BEAKER) (test mfms=524) Negative Negative KETONES UA (BEAKER) (test opmx=449) Negative Negative BILIRUBIN UA (BEAKER) (test qdqv=818) Negative Negative BLOOD UA (BEAKER) (test ijry=528) Trace Negative NITRITE UA (BEAKER) (test mjdm=822) Negative Negative LEUKOCYTE ESTERASE UA (BEAKER) (test kvuo=403) Small Negative UROBILINOGEN UA (BEAKER) (test pjeh=855) 0.2 mg/dL 0.2-1.0 RBC UA (BEAKER) (test wyps=638) 1 /HPF WBC UA (BEAKER) (test ovcf=931) 7 /HPF BACTERIA (BEAKER) (test mbcy=250) Rare MUCUS (BEAKER) (test evfb=7708) Rare SQUAMOUS EPITHELIAL (BEAKER) (test wwkx=171) 4 /HPF SOURCE(BEAKER) (test qnto=8863) Urine, Voided CALCIUM, [id number] 07:19:00 Test Item Value Reference Range Comments CALCIUM IONIZED (BEAKER) (test eggp=730) 1.03 mmol/L 1.12-1.27 PH, BLOOD (BEAKER) (test nhlt=6376) 7.40 CBC W/PLT COUNT & AUTO [id number] 06:26:00 Test Item Value Reference Range Comments WHITE BLOOD CELL COUNT (BEAKER) (test ywfg=190) 18.5 K/ L 3.5-10.5 RED BLOOD CELL COUNT (BEAKER) (test cncf=561) 2.02 M/ L 3.93-5.22 HEMOGLOBIN (BEAKER) (test vlom=494) 6.0 GM/DL 11.2-15.7 HEMATOCRIT (BEAKER) (test lwrk=074) 18.5 % 34.1-44.9 MEAN CORPUSCULAR VOLUME (BEAKER) (test qkdv=460) 91.6 fL 79.4-94.8 MEAN CORPUSCULAR HEMOGLOBIN (BEAKER) (test 29.7 pg 25.6-32.2 qiul=810) MEAN CORPUSCULAR HEMOGLOBIN CONC (BEAKER) (test 32.4 GM/DL 32.2-35.5 sexv=467) RED CELL DISTRIBUTION WIDTH (BEAKER) (test 21.9 % 11.7-14.4 hazw=730) PLATELET COUNT (BEAKER) (test cfbm=652) 337 K/CU MM 150-450 MEAN PLATELET VOLUME (BEAKER) (test vdli=582) 11.7 fL 9.4-12.3 NUCLEATED RED BLOOD CELLS (BEAKER) (test 4 /100 WBC 0-0 jary=335) NEUTROPHILS RELATIVE PERCENT (BEAKER) (test 76 % njqs=904) LYMPHOCYTES RELATIVE PERCENT (BEAKER) (test 16 % uipz=939) MONOCYTES RELATIVE PERCENT (BEAKER) (test 6 % fjme=601) EOSINOPHILS RELATIVE PERCENT (BEAKER) (test 1 % ihpz=941) BASOPHILS RELATIVE PERCENT (BEAKER) (test 0 % frhn=199) NEUTROPHILS ABSOLUTE COUNT (BEAKER) (test 13.98 K/ L 1.56-6.13 kcej=705) LYMPHOCYTES ABSOLUTE COUNT (BEAKER) (test 3.02 K/ L 1.18-3.74 aqny=742) MONOCYTES ABSOLUTE COUNT (BEAKER) (test 1.13 K/ L 0.24-0.36 unbg=551) EOSINOPHILS ABSOLUTE COUNT (BEAKER) (test 0.09 K/ L 0.04-0.36 ntkt=244) BASOPHILS ABSOLUTE COUNT (BEAKER) (test 0.05 K/ L 0.01-0.08 halq=888) IMMATURE GRANULOCYTES-RELATIVE PERCENT (BEAKER) 1 % 0-1 (test erfn=7154) [id number] 06:21:00 Test Item Value Reference Range Comments PHOSPHORUS (BEAKER) (test rsgt=749) 4.3 mg/dL 2.3-4.7 [id number] 06:21:00 Test Item Value Reference Range Comments MAGNESIUM (BEAKER) (test lfaz=568) 2.1 mg/dL 1.6-2.6 BASIC METABOLIC [id number] 06:21:00 Test Item Value Reference Range Comments SODIUM (BEAKER) (test 139 meq/L 136-145 fvwg=694) POTASSIUM (BEAKER) (test 4.0 meq/L 3.5-5.1 mrbr=401) CHLORIDE (BEAKER) (test 99 meq/L 98-107 juoq=200) CO2 (BEAKER) (test 31 meq/L 22-29 adnc=774) BLOOD UREA NITROGEN 23 mg/dL 7-21 (BEAKER) (test ytpd=436) CREATININE (BEAKER) (test 1.29 mg/dL 0.57-1.25 uiwy=375) GLUCOSE RANDOM (BEAKER) 116 mg/dL 70-105 (test tmrb=190) CALCIUM (BEAKER) (test 8.8 mg/dL 8.4-10.2 vvke=601) EGFR (BEAKER) (test 56 mL/min/1.73 sq m ESTIMATED GFR IS NOT tdnw=8914) ACCURATE CREATININE CLEARANCE IN PREDICTING GLOMERULAR FILTRATION RATE. ESTIMATED GFR IS NOT APPLICABLE FOR DIALYSIS PATIENTS. B-TYPE NATRIURETIC FACTOR (BNP)2017-11-13 07:27:00 Test Item Value Reference Range Comments B-TYPE NATRIURETIC PEPTIDE (BEAKER) (test 166 pg/mL 0-100 jltw=164) [id number] 07:26:00 Test Item Value Reference Range Comments PHOSPHORUS (BEAKER) (test abqe=493) 4.6 mg/dL 2.3-4.7 [id number] 07:26:00 Test Item Value Reference Range Comments MAGNESIUM (BEAKER) (test klyw=981) 1.6 mg/dL 1.6-2.6 BASIC METABOLIC [id number] 07:26:00 Test Item Value Reference Range Comments SODIUM (BEAKER) (test 139 meq/L 136-145 dert=143) POTASSIUM (BEAKER) (test 3.5 meq/L 3.5-5.1 zaqs=474) CHLORIDE (BEAKER) (test 101 meq/L 98-107 jkuf=231) CO2 (BEAKER) (test 32 meq/L 22-29 kwit=572) BLOOD UREA NITROGEN 14 mg/dL 7-21 (BEAKER) (test ivns=223) CREATININE (BEAKER) (test 1.09 mg/dL 0.57-1.25 jcwr=525) GLUCOSE RANDOM (BEAKER) 92 mg/dL 70-105 (test lufz=080) CALCIUM (BEAKER) (test 8.5 mg/dL 8.4-10.2 aqla=971) EGFR (BEAKER) (test 68 mL/min/1.73 sq m ESTIMATED GFR IS NOT mfwm=4350) ACCURATE CREATININE CLEARANCE IN PREDICTING GLOMERULAR FILTRATION RATE. ESTIMATED GFR IS NOT APPLICABLE FOR DIALYSIS PATIENTS. CBC W/PLT COUNT & AUTO [id number] 07:23:00 Test Item Value Reference Range Comments WHITE BLOOD CELL COUNT (BEAKER) (test jnml=085) 18.4 K/ L 3.5-10.5 RED BLOOD CELL COUNT (BEAKER) (test mfqt=627) 2.03 M/ L 3.93-5.22 HEMOGLOBIN (BEAKER) (test efwr=375) 6.0 GM/DL 11.2-15.7 HEMATOCRIT (BEAKER) (test flyo=845) 18.8 % 34.1-44.9 MEAN CORPUSCULAR VOLUME (BEAKER) (test htoq=350) 92.6 fL 79.4-94.8 MEAN CORPUSCULAR HEMOGLOBIN (BEAKER) (test 29.6 pg 25.6-32.2 mbwx=937) MEAN CORPUSCULAR HEMOGLOBIN CONC (BEAKER) (test 31.9 GM/DL 32.2-35.5 menu=579) RED CELL DISTRIBUTION WIDTH (BEAKER) (test 22.9 % 11.7-14.4 dhek=012) PLATELET COUNT (BEAKER) (test hpqn=966) 302 K/CU MM 150-450 MEAN PLATELET VOLUME (BEAKER) (test lzmc=231) 11.3 fL 9.4-12.3 NUCLEATED RED BLOOD CELLS (BEAKER) (test 7 /100 WBC 0-0 xfhx=396) NEUTROPHILS RELATIVE PERCENT (BEAKER) (test 74 % uyci=599) LYMPHOCYTES RELATIVE PERCENT (BEAKER) (test 18 % zefd=266) MONOCYTES RELATIVE PERCENT (BEAKER) (test 7 % xhrc=917) EOSINOPHILS RELATIVE PERCENT (BEAKER) (test 0 % epdu=294) BASOPHILS RELATIVE PERCENT (BEAKER) (test 0 % nulk=262) NEUTROPHILS ABSOLUTE COUNT (BEAKER) (test 13.58 K/ L 1.56-6.13 iklx=221) LYMPHOCYTES ABSOLUTE COUNT (BEAKER) (test 3.24 K/ L 1.18-3.74 zqbm=004) MONOCYTES ABSOLUTE COUNT (BEAKER) (test 1.23 K/ L 0.24-0.36 uzpz=181) EOSINOPHILS ABSOLUTE COUNT (BEAKER) (test 0.07 K/ L 0.04-0.36 hmtd=338) BASOPHILS ABSOLUTE COUNT (BEAKER) (test 0.05 K/ L 0.01-0.08 vcax=064) IMMATURE GRANULOCYTES-RELATIVE PERCENT (BEAKER) 1 % 0-1 (test rmor=0262) CALCIUM, [id number] 07:08:00 Test Item Value Reference Range Comments CALCIUM IONIZED (BEAKER) (test dzuz=789) 1.03 mmol/L 1.12-1.27 PH, BLOOD (BEAKER) (test umsj=3969) 7.38 CBC W/PLT COUNT & AUTO [id number] 08:23:00 Test Item Value Reference Range Comments WHITE BLOOD CELL COUNT (BEAKER) (test iehn=048) 20.4 K/ L 3.5-10.5 RED BLOOD CELL COUNT (BEAKER) (test zpfy=758) 2.08 M/ L 3.93-5.22 HEMOGLOBIN (BEAKER) (test tznz=359) 6.4 GM/DL 11.2-15.7 HEMATOCRIT (BEAKER) (test exql=456) 19.7 % 34.1-44.9 MEAN CORPUSCULAR VOLUME (BEAKER) (test tdtf=184) 94.7 fL 79.4-94.8 MEAN CORPUSCULAR HEMOGLOBIN (BEAKER) (test 30.8 pg 25.6-32.2 velw=171) MEAN CORPUSCULAR HEMOGLOBIN CONC (BEAKER) (test 32.5 GM/DL 32.2-35.5 hpig=996) RED CELL DISTRIBUTION WIDTH (BEAKER) (test 24.3 % 11.7-14.4 tngz=865) PLATELET COUNT (BEAKER) (test xgmi=112) 290 K/CU MM 150-450 MEAN PLATELET VOLUME (BEAKER) (test godm=507) 11.5 fL 9.4-12.3 NUCLEATED RED BLOOD CELLS (BEAKER) (test 19 /100 WBC 0-0 ejsl=485) NEUTROPHILS RELATIVE PERCENT (BEAKER) (test 75 % iybn=123) LYMPHOCYTES RELATIVE PERCENT (BEAKER) (test 16 % zbwi=946) MONOCYTES RELATIVE PERCENT (BEAKER) (test 8 % vxzr=843) EOSINOPHILS RELATIVE PERCENT (BEAKER) (test 0 % medl=663) BASOPHILS RELATIVE PERCENT (BEAKER) (test 0 % brpr=316) NEUTROPHILS ABSOLUTE COUNT (BEAKER) (test 15.32 K/ L 1.56-6.13 hbvp=016) LYMPHOCYTES ABSOLUTE COUNT (BEAKER) (test 3.24 K/ L 1.18-3.74 ixam=097) MONOCYTES ABSOLUTE COUNT (BEAKER) (test 1.61 K/ L 0.24-0.36 wjli=860) EOSINOPHILS ABSOLUTE COUNT (BEAKER) (test 0.05 K/ L 0.04-0.36 srfa=913) BASOPHILS ABSOLUTE COUNT (BEAKER) (test 0.04 K/ L 0.01-0.08 mrof=274) IMMATURE GRANULOCYTES-RELATIVE PERCENT (BEAKER) 0 % 0-1 (test mecn=9103) (MANUAL DIFFERENTIAL)2017-11-12 08:23:00 Test Item Value Reference Range Comments TOTAL COUNTED (BEAKER) (test ptof=8054) WBC MORPHOLOGY (BEAKER) (test wdnb=210) Normal LARGE PLT(BEAKER) (test ydzu=5705) Present HYPOCHROMIA (BEAKER) (test nmka=754) 1+ few POLYCHROMATOPHILLIC RBCS(BEAKER) (test wmrv=440) 1+ few SICKLE CELLS (BEAKER) (test ofvb=416) 1+ few TARGET CELLS (BEAKER) (test uqxb=141) 1+ few [id number] 08:11:00 Test Item Value Reference Range Comments PHOSPHORUS (BEAKER) (test hjtt=928) 4.3 mg/dL 2.3-4.7 [id number] 08:11:00 Test Item Value Reference Range Comments MAGNESIUM (BEAKER) (test nkef=347) 1.3 mg/dL 1.6-2.6 BASIC METABOLIC [id number] 08:11:00 Test Item Value Reference Range Comments SODIUM (BEAKER) (test 140 meq/L 136-145 cgkv=215) POTASSIUM (BEAKER) (test 3.4 meq/L 3.5-5.1 jwaj=045) CHLORIDE (BEAKER) (test 103 meq/L 98-107 xwap=558) CO2 (BEAKER) (test 27 meq/L 22-29 xwfb=034) BLOOD UREA NITROGEN 15 mg/dL 7-21 (BEAKER) (test rmda=196) CREATININE (BEAKER) (test 1.10 mg/dL 0.57-1.25 ebbj=993) GLUCOSE RANDOM (BEAKER) 91 mg/dL 70-105 (test uvuk=335) CALCIUM (BEAKER) (test 8.5 mg/dL 8.4-10.2 hszs=303) EGFR (BEAKER) (test 67 mL/min/1.73 sq m ESTIMATED GFR IS NOT vwdw=2132) ACCURATE CREATININE CLEARANCE IN PREDICTING GLOMERULAR FILTRATION RATE. ESTIMATED GFR IS NOT APPLICABLE FOR DIALYSIS PATIENTS. CALCIUM, [id number] 07:19:00 Test Item Value Reference Range Comments CALCIUM IONIZED (BEAKER) (test ntwl=902) 0.98 mmol/L 1.12-1.27 PH, BLOOD (BEAKER) (test euzf=1203) 7.39 BLOOD [id number] 00:00:00 Test Item Value Reference Range Comments CULTURE (BEAKER) (test nbxo=3963) No growth in 5 days CBC W/PLT COUNT & AUTO [id number] 13:18:00 Test Item Value Reference Range Comments WHITE BLOOD CELL COUNT (BEAKER) (test ahat=664) 20.7 K/ L 3.5-10.5 RED BLOOD CELL COUNT (BEAKER) (test ggnm=594) 2.12 M/ L 3.93-5.22 HEMOGLOBIN (BEAKER) (test xsyc=351) 6.7 GM/DL 11.2-15.7 HEMATOCRIT (BEAKER) (test azvg=552) 20.4 % 34.1-44.9 MEAN CORPUSCULAR VOLUME (BEAKER) (test kvbb=939) 96.2 fL 79.4-94.8 MEAN CORPUSCULAR HEMOGLOBIN (BEAKER) (test 31.6 pg 25.6-32.2 whjx=119) MEAN CORPUSCULAR HEMOGLOBIN CONC (BEAKER) (test 32.8 GM/DL 32.2-35.5 brfb=482) RED CELL DISTRIBUTION WIDTH (BEAKER) (test 25.9 % 11.7-14.4 eqft=040) PLATELET COUNT (BEAKER) (test heac=032) 262 K/CU MM 150-450 MEAN PLATELET VOLUME (BEAKER) (test qkzr=310) 11.2 fL 9.4-12.3 NUCLEATED RED BLOOD CELLS (BEAKER) (test 40 /100 WBC 0-0 cbwf=810) NEUTROPHILS RELATIVE PERCENT (BEAKER) (test 76 % rtyc=133) LYMPHOCYTES RELATIVE PERCENT (BEAKER) (test 16 % gbap=661) MONOCYTES RELATIVE PERCENT (BEAKER) (test 8 % ovkk=075) EOSINOPHILS RELATIVE PERCENT (BEAKER) (test 0 % izpg=158) BASOPHILS RELATIVE PERCENT (BEAKER) (test 0 % ncvh=715) NEUTROPHILS ABSOLUTE COUNT (BEAKER) (test 15.60 K/ L 1.56-6.13 bmca=285) LYMPHOCYTES ABSOLUTE COUNT (BEAKER) (test 3.23 K/ L 1.18-3.74 wmik=765) MONOCYTES ABSOLUTE COUNT (BEAKER) (test 1.54 K/ L 0.24-0.36 vfpd=213) EOSINOPHILS ABSOLUTE COUNT (BEAKER) (test 0.02 K/ L 0.04-0.36 qlmv=220) BASOPHILS ABSOLUTE COUNT (BEAKER) (test 0.05 K/ L 0.01-0.08 eefa=088) IMMATURE GRANULOCYTES-RELATIVE PERCENT (BEAKER) 1 % 0-1 (test wohb=6365) (MANUAL DIFFERENTIAL)2017-11-11 13:18:00 Test Item Value Reference Range Comments TOTAL COUNTED (BEAKER) (test apbf=3617) WBC MORPHOLOGY (BEAKER) (test conf=350) Normal LARGE PLT(BEAKER) (test jsfu=5423) Present POLYCHROMATOPHILLIC RBCS(BEAKER) (test ztha=927) 1+ few SICKLE CELLS (BEAKER) (test qbzp=491) 1+ few TARGET CELLS (BEAKER) (test mecz=169) 1+ few [id number] 08:05:00 Test Item Value Reference Range Comments PHOSPHORUS (BEAKER) (test qmni=263) 5.0 mg/dL 2.3-4.7 [id number] 08:05:00 Test Item Value Reference Range Comments MAGNESIUM (BEAKER) (test nzeh=487) 1.6 mg/dL 1.6-2.6 BASIC METABOLIC [id number] 08:05:00 Test Item Value Reference Range Comments SODIUM (BEAKER) (test 140 meq/L 136-145 qhbx=798) POTASSIUM (BEAKER) (test 3.7 meq/L 3.5-5.1 iedg=888) CHLORIDE (BEAKER) (test 107 meq/L 98-107 utry=636) CO2 (BEAKER) (test 24 meq/L 22-29 mkml=617) BLOOD UREA NITROGEN 19 mg/dL 7-21 (BEAKER) (test delf=897) CREATININE (BEAKER) (test 1.23 mg/dL 0.57-1.25 pocv=568) GLUCOSE RANDOM (BEAKER) 96 mg/dL 70-105 (test bmru=392) CALCIUM (BEAKER) (test 8.5 mg/dL 8.4-10.2 gals=843) EGFR (BEAKER) (test 59 mL/min/1.73 sq m ESTIMATED GFR IS NOT phem=1429) ACCURATE CREATININE CLEARANCE IN PREDICTING GLOMERULAR FILTRATION RATE. ESTIMATED GFR IS NOT APPLICABLE FOR DIALYSIS PATIENTS. CALCIUM, [id number] 06:38:00 Test Item Value Reference Range Comments CALCIUM IONIZED (BEAKER) (test herx=029) 1.07 mmol/L 1.12-1.27 PH, BLOOD (BEAKER) (test upbo=4035) 7.31 CBC W/PLT COUNT & AUTO [id number] 14:53:00 Test Item Value Reference Range Comments WHITE BLOOD CELL COUNT (BEAKER) (test ibbl=886) 21.8 K/ L 3.5-10.5 RED BLOOD CELL COUNT (BEAKER) (test rccq=175) 2.17 M/ L 3.93-5.22 HEMOGLOBIN (BEAKER) (test aazq=182) 6.8 GM/DL 11.2-15.7 HEMATOCRIT (BEAKER) (test cnrj=447) 21.3 % 34.1-44.9 MEAN CORPUSCULAR VOLUME (BEAKER) (test tlac=593) 98.2 fL 79.4-94.8 MEAN CORPUSCULAR HEMOGLOBIN (BEAKER) (test 31.3 pg 25.6-32.2 ubff=040) MEAN CORPUSCULAR HEMOGLOBIN CONC (BEAKER) (test 31.9 GM/DL 32.2-35.5 vmzy=961) RED CELL DISTRIBUTION WIDTH (BEAKER) (test 27.6 % 11.7-14.4 fidz=289) PLATELET COUNT (BEAKER) (test vhjz=929) 244 K/CU MM 150-450 MEAN PLATELET VOLUME (BEAKER) (test fcxb=054) 11.4 fL 9.4-12.3 NUCLEATED RED BLOOD CELLS (BEAKER) (test 80 /100 WBC 0-0 otvt=692) NEUTROPHILS RELATIVE PERCENT (BEAKER) (test 82 % avze=781) LYMPHOCYTES RELATIVE PERCENT (BEAKER) (test 7 % zadf=862) MONOCYTES RELATIVE PERCENT (BEAKER) (test 10 % lxrp=412) EOSINOPHILS RELATIVE PERCENT (BEAKER) (test 0 % sead=337) BASOPHILS RELATIVE PERCENT (BEAKER) (test 0 % dejf=270) NEUTROPHILS ABSOLUTE COUNT (BEAKER) (test 17.85 K/ L 1.56-6.13 ptpo=338) LYMPHOCYTES ABSOLUTE COUNT (BEAKER) (test 1.60 K/ L 1.18-3.74 gjbk=623) MONOCYTES ABSOLUTE COUNT (BEAKER) (test 2.14 K/ L 0.24-0.36 rras=306) EOSINOPHILS ABSOLUTE COUNT (BEAKER) (test 0.03 K/ L 0.04-0.36 tgav=700) BASOPHILS ABSOLUTE COUNT (BEAKER) (test 0.03 K/ L 0.01-0.08 uapb=231) IMMATURE GRANULOCYTES-RELATIVE PERCENT (BEAKER) 1 % 0-1 (test ppnk=4147) (MANUAL DIFFERENTIAL)2017-11-10 14:53:00 Test Item Value Reference Range Comments TOTAL COUNTED (BEAKER) (test xxjr=0136) WBC MORPHOLOGY (BEAKER) (test wtxp=992) Normal LARGE PLT(BEAKER) (test gona=3315) Present SCHISTOCYTES (BEAKER) (test fvok=800) 1+ few ACANTHOCYTES (BEAKER) (test nbuz=543) 1+ few ANISOCYTOSIS (BEAKER) (test qnox=159) 2+ moderate HYPOCHROMIA (BEAKER) (test xoma=870) 2+ moderate MACROCYTES (BEAKER) (test otxj=992) 3+ many MICROCYTES (BEAKER) (test psrs=925) 2+ moderate OVALOCYTES (BEAKER) (test kfuh=562) 1+ few POIKILOCYTES (BEAKER) (test ytiu=510) 3+ many POLYCHROMATOPHILLIC RBCS(BEAKER) (test ryuh=824) 2+ moderate SICKLE CELLS (BEAKER) (test mzuy=458) 2+ moderate TARGET CELLS (BEAKER) (test kedq=225) 1+ few BASIC METABOLIC [id number] 08:54:00 Test Item Value Reference Range Comments SODIUM (BEAKER) (test 140 meq/L 136-145 yofi=663) POTASSIUM (BEAKER) (test 4.0 meq/L 3.5-5.1 drgy=966) CHLORIDE (BEAKER) (test 109 meq/L 98-107 tdqb=337) CO2 (BEAKER) (test 19 meq/L 22-29 rhmo=891) BLOOD UREA NITROGEN 21 mg/dL 7-21 (BEAKER) (test ydhv=703) CREATININE (BEAKER) (test 1.27 mg/dL 0.57-1.25 qwra=178) GLUCOSE RANDOM (BEAKER) 122 mg/dL 70-105 (test tcmc=944) CALCIUM (BEAKER) (test 8.6 mg/dL 8.4-10.2 jejs=221) EGFR (BEAKER) (test 57 mL/min/1.73 sq m ESTIMATED GFR IS NOT qqqt=9704) ACCURATE CREATININE CLEARANCE IN PREDICTING GLOMERULAR FILTRATION RATE. ESTIMATED GFR IS NOT APPLICABLE FOR DIALYSIS PATIENTS. [id number] 08:54:00 Test Item Value Reference Range Comments MAGNESIUM (BEAKER) (test jgia=212) 1.5 mg/dL 1.6-2.6 [id number] 08:54:00 Test Item Value Reference Range Comments PHOSPHORUS (BEAKER) (test isnh=745) 4.5 mg/dL 2.3-4.7 COMPREHENSIVE METABOLIC [id number] 08:54:00 Test Item Value Reference Range Comments TOTAL PROTEIN (BEAKER) 8.2 gm/dL 6.0-8.3 (test hdzy=913) ALBUMIN (BEAKER) (test 3.1 g/dL 3.5-5.0 gapp=3176) ALKALINE PHOSPHATASE 154 U/L 40-150 (BEAKER) (test ueoq=739) BILIRUBIN TOTAL (BEAKER) 1.4 mg/dL 0.2-1.2 (test tsgz=871) SODIUM (BEAKER) (test 140 meq/L 136-145 hvfv=415) POTASSIUM (BEAKER) (test 4.0 meq/L 3.5-5.1 ziqh=243) CHLORIDE (BEAKER) (test 109 meq/L 98-107 fqja=328) CO2 (BEAKER) (test 19 meq/L 22-29 mtdm=531) BLOOD UREA NITROGEN 21 mg/dL 7-21 (BEAKER) (test kmbq=427) CREATININE (BEAKER) (test 1.27 mg/dL 0.57-1.25 sork=273) GLUCOSE RANDOM (BEAKER) 122 mg/dL 70-105 (test fwzy=962) CALCIUM (BEAKER) (test 8.6 mg/dL 8.4-10.2 bkdf=280) AST (SGOT) (BEAKER) (test 72 U/L 5-34 yzkh=296) ALT (SGPT) (BEAKER) (test 50 U/L 6-55 lzut=502) EGFR (BEAKER) (test 57 mL/min/1.73 sq m ESTIMATED GFR IS NOT czwh=7670) ACCURATE CREATININE CLEARANCE IN PREDICTING GLOMERULAR FILTRATION RATE. ESTIMATED GFR IS NOT APPLICABLE FOR DIALYSIS PATIENTS. CALCIUM, [id number] 07:21:00 Test Item Value Reference Range Comments CALCIUM IONIZED (BEAKER) (test dcgw=803) 1.04 mmol/L 1.12-1.27 PH, BLOOD (BEAKER) (test rflf=0483) 7.39 CBC W/PLT COUNT & AUTO [id number] 12:10:00 Test Item Value Reference Range Comments WHITE BLOOD CELL COUNT (BEAKER) (test lvtm=783) 20.8 K/ L 3.5-10.5 RED BLOOD CELL COUNT (BEAKER) (test meqp=074) 2.11 M/ L 3.93-5.22 HEMOGLOBIN (BEAKER) (test lqbt=183) 6.6 GM/DL 11.2-15.7 HEMATOCRIT (BEAKER) (test fibu=629) 20.4 % 34.1-44.9 MEAN CORPUSCULAR VOLUME (BEAKER) (test sutj=351) 96.7 fL 79.4-94.8 MEAN CORPUSCULAR HEMOGLOBIN (BEAKER) (test 31.3 pg 25.6-32.2 liuw=780) MEAN CORPUSCULAR HEMOGLOBIN CONC (BEAKER) (test 32.4 GM/DL 32.2-35.5 nson=864) RED CELL DISTRIBUTION WIDTH (BEAKER) (test 27.2 % 11.7-14.4 zgkt=442) PLATELET COUNT (BEAKER) (test syfx=674) 237 K/CU MM 150-450 MEAN PLATELET VOLUME (BEAKER) (test pmsh=590) 10.7 fL 9.4-12.3 NUCLEATED RED BLOOD CELLS (BEAKER) (test 98 /100 WBC 0-0 zxio=602) NEUTROPHILS RELATIVE PERCENT (BEAKER) (test 82 % zoqa=721) LYMPHOCYTES RELATIVE PERCENT (BEAKER) (test 6 % ygxl=974) MONOCYTES RELATIVE PERCENT (BEAKER) (test 11 % oclj=630) EOSINOPHILS RELATIVE PERCENT (BEAKER) (test 0 % hmve=702) BASOPHILS RELATIVE PERCENT (BEAKER) (test 0 % gkxf=353) NEUTROPHILS ABSOLUTE COUNT (BEAKER) (test 16.91 K/ L 1.56-6.13 tbkn=831) LYMPHOCYTES ABSOLUTE COUNT (BEAKER) (test 1.31 K/ L 1.18-3.74 gble=363) MONOCYTES ABSOLUTE COUNT (BEAKER) (test 2.37 K/ L 0.24-0.36 enlk=739) EOSINOPHILS ABSOLUTE COUNT (BEAKER) (test 0.01 K/ L 0.04-0.36 tmwo=151) BASOPHILS ABSOLUTE COUNT (BEAKER) (test 0.05 K/ L 0.01-0.08 ttyj=475) IMMATURE GRANULOCYTES-RELATIVE PERCENT (BEAKER) 1 % 0-1 (test uzow=0858) (MANUAL DIFFERENTIAL)2017-11-09 12:10:00 Test Item Value Reference Range Comments TOTAL COUNTED (BEAKER) (test zjyl=7139) WBC MORPHOLOGY (BEAKER) (test thqr=817) Normal PLT MORPHOLOGY (BEAKER) (test yfsu=047) Normal ANISOCYTOSIS (BEAKER) (test dmgw=038) 2+ moderate MATTHEWS-JOLLY BODIES (BEAKER) (test gwjp=938) 1+ few POIKILOCYTES (BEAKER) (test wfuj=925) 2+ moderate POLYCHROMATOPHILLIC RBCS(BEAKER) (test qsbq=677) 1+ few SICKLE CELLS (BEAKER) (test rskz=697) 2+ moderate TARGET CELLS (BEAKER) (test ovpx=683) 1+ few CALCIUM, [id number] 07:44:00 Test Item Value Reference Range Comments CALCIUM IONIZED (BEAKER) (test lbnv=837) 1.16 mmol/L 1.12-1.27 PH, BLOOD (BEAKER) (test xsgg=2346) 7.25 B-TYPE NATRIURETIC FACTOR (BNP)2017-11-09 07:43:00 Test Item Value Reference Range Comments B-TYPE NATRIURETIC PEPTIDE (BEAKER) (test 903 pg/mL 0-100 dlmw=395) [id number] 07:27:00 Test Item Value Reference Range Comments PHOSPHORUS (BEAKER) (test lsxs=213) 4.4 mg/dL 2.3-4.7 [id number] 07:27:00 Test Item Value Reference Range Comments MAGNESIUM (BEAKER) (test lswk=942) 1.7 mg/dL 1.6-2.6 COMPREHENSIVE METABOLIC [id number] 07:27:00 Test Item Value Reference Range Comments TOTAL PROTEIN (BEAKER) 7.8 gm/dL 6.0-8.3 (test peyr=907) ALBUMIN (BEAKER) (test 3.2 g/dL 3.5-5.0 rzvs=4907) ALKALINE PHOSPHATASE 165 U/L 40-150 (BEAKER) (test gtro=762) BILIRUBIN TOTAL (BEAKER) 1.3 mg/dL 0.2-1.2 (test jakc=275) SODIUM (BEAKER) (test 143 meq/L 136-145 mheu=289) POTASSIUM (BEAKER) (test 4.2 meq/L 3.5-5.1 kgpf=488) CHLORIDE (BEAKER) (test 112 meq/L 98-107 ikwj=755) CO2 (BEAKER) (test 23 meq/L 22-29 mgru=529) BLOOD UREA NITROGEN 29 mg/dL 7-21 (BEAKER) (test whwg=462) CREATININE (BEAKER) (test 1.54 mg/dL 0.57-1.25 rjnw=815) GLUCOSE RANDOM (BEAKER) 108 mg/dL 70-105 (test vclk=610) CALCIUM (BEAKER) (test 9.1 mg/dL 8.4-10.2 mbqv=506) AST (SGOT) (BEAKER) (test 110 U/L 5-34 vyxj=881) ALT (SGPT) (BEAKER) (test 64 U/L 6-55 bfpb=721) EGFR (BEAKER) (test 46 mL/min/1.73 sq m ESTIMATED GFR IS NOT ynej=5964) ACCURATE CREATININE CLEARANCE IN PREDICTING GLOMERULAR FILTRATION RATE. ESTIMATED GFR IS NOT APPLICABLE FOR DIALYSIS PATIENTS. BASIC METABOLIC [id number] 07:27:00 Test Item Value Reference Range Comments SODIUM (BEAKER) (test 143 meq/L 136-145 yxxu=784) POTASSIUM (BEAKER) (test 4.2 meq/L 3.5-5.1 rzxc=999) CHLORIDE (BEAKER) (test 112 meq/L 98-107 egxe=543) CO2 (BEAKER) (test 23 meq/L 22-29 ncbl=131) BLOOD UREA NITROGEN 29 mg/dL 7-21 (BEAKER) (test lrim=927) CREATININE (BEAKER) (test 1.54 mg/dL 0.57-1.25 tqnu=519) GLUCOSE RANDOM (BEAKER) 108 mg/dL 70-105 (test giio=572) CALCIUM (BEAKER) (test 9.1 mg/dL 8.4-10.2 czcz=298) EGFR (BEAKER) (test 46 mL/min/1.73 sq m ESTIMATED GFR IS NOT rbvd=7202) ACCURATE CREATININE CLEARANCE IN PREDICTING GLOMERULAR FILTRATION RATE. ESTIMATED GFR IS NOT APPLICABLE FOR DIALYSIS PATIENTS. RAD, CHEST, 1 VIEW, NON [id number] 20:41:00Reason for exam:->edemaShould this be performed at [...] MDReport Verified Date/Time: 11/08/2017 20:41:24 Reading Location: [address] Reading Room Electronically signed by: CLIFF SALCIDO M.D. on 08:41 PMEOSINOPHIL SMEAR, [id number] 12:49:00 Test Item Value Reference Range Comments EOSINOPHIL SMEAR, URINE (BEAKER) (test No EOS seen No EOS seen pkdb=5814) CBC W/PLT COUNT & AUTO [id number] 10:40:00 Test Item Value Reference Range Comments WHITE BLOOD CELL COUNT (BEAKER) (test xflm=375) 18.6 K/ L 3.5-10.5 RED BLOOD CELL COUNT (BEAKER) (test epjk=880) 2.21 M/ L 3.93-5.22 HEMOGLOBIN (BEAKER) (test xepz=361) 6.8 GM/DL 11.2-15.7 HEMATOCRIT (BEAKER) (test soll=368) 20.6 % 34.1-44.9 MEAN CORPUSCULAR VOLUME (BEAKER) (test fcla=833) 93.2 fL 79.4-94.8 MEAN CORPUSCULAR HEMOGLOBIN (BEAKER) (test 30.8 pg 25.6-32.2 rgfk=350) MEAN CORPUSCULAR HEMOGLOBIN CONC (BEAKER) (test 33.0 GM/DL 32.2-35.5 frkt=640) RED CELL DISTRIBUTION WIDTH (BEAKER) (test 25.5 % 11.7-14.4 oefl=788) PLATELET COUNT (BEAKER) (test iysj=976) 255 K/CU MM 150-450 MEAN PLATELET VOLUME (BEAKER) (test ushh=918) 10.6 fL 9.4-12.3 NUCLEATED RED BLOOD CELLS (BEAKER) (test 87 /100 WBC 0-0 dsxd=313) NEUTROPHILS RELATIVE PERCENT (BEAKER) (test 70 % wutq=881) LYMPHOCYTES RELATIVE PERCENT (BEAKER) (test 14 % tcvy=100) MONOCYTES RELATIVE PERCENT (BEAKER) (test 14 % iimh=512) EOSINOPHILS RELATIVE PERCENT (BEAKER) (test 0 % mtqr=453) BASOPHILS RELATIVE PERCENT (BEAKER) (test 0 % opch=314) NEUTROPHILS ABSOLUTE COUNT (BEAKER) (test 12.98 K/ L 1.56-6.13 cgxh=797) LYMPHOCYTES ABSOLUTE COUNT (BEAKER) (test 2.67 K/ L 1.18-3.74 tfrb=371) MONOCYTES ABSOLUTE COUNT (BEAKER) (test 2.65 K/ L 0.24-0.36 jlke=707) EOSINOPHILS ABSOLUTE COUNT (BEAKER) (test 0.07 K/ L 0.04-0.36 teyj=878) BASOPHILS ABSOLUTE COUNT (BEAKER) (test 0.05 K/ L 0.01-0.08 zygs=390) IMMATURE GRANULOCYTES-RELATIVE PERCENT (BEAKER) 1 % 0-1 (test aulf=9955) (MANUAL DIFFERENTIAL)2017-11-08 10:40:00 Test Item Value Reference Range Comments TOTAL COUNTED (BEAKER) (test csxu=4394) WBC MORPHOLOGY (BEAKER) (test snlb=878) Normal LARGE PLT(BEAKER) (test fdlg=3151) Present POLYCHROMATOPHILLIC RBCS(BEAKER) (test glqj=382) 2+ moderate SICKLE CELLS (BEAKER) (test iqqi=340) 3+ many TARGET CELLS (BEAKER) (test hdjo=962) 1+ few CT, [id number] 08:29:00FINAL REPORT HISTORY : Abdominal pain, unspecified [...] MDReport Verified Date/Time: 11/08/2017 08:29:54 Reading Location: [facility] Reading Room - [place] [id number] Electronically signed by: DAMI QUICK M.D. on11/08/2017 08:29 AMBASIC METABOLIC [id number] 08:14:00 Test Item Value Reference Range Comments SODIUM (BEAKER) (test 141 meq/L 136-145 iguz=968) POTASSIUM (BEAKER) (test 4.4 meq/L 3.5-5.1 vize=984) CHLORIDE (BEAKER) (test 111 meq/L 98-107 scgq=921) CO2 (BEAKER) (test 17 meq/L 22-29 rcxf=822) BLOOD UREA NITROGEN 37 mg/dL 7-21 (BEAKER) (test gryf=277) CREATININE (BEAKER) (test 2.07 mg/dL 0.57-1.25 hjyz=459) GLUCOSE RANDOM (BEAKER) 101 mg/dL 70-105 (test asvk=466) CALCIUM (BEAKER) (test 8.9 mg/dL 8.4-10.2 stmu=317) EGFR (BEAKER) (test 32 mL/min/1.73 sq m ESTIMATED GFR IS NOT hlsj=3112) ACCURATE CREATININE CLEARANCE IN PREDICTING GLOMERULAR FILTRATION RATE. ESTIMATED GFR IS NOT APPLICABLE FOR DIALYSIS PATIENTS. COMPREHENSIVE METABOLIC [id number] 08:14:00 Test Item Value Reference Range Comments TOTAL PROTEIN (BEAKER) 8.6 gm/dL 6.0-8.3 (test dmyf=702) ALBUMIN (BEAKER) (test 3.4 g/dL 3.5-5.0 grwp=4467) ALKALINE PHOSPHATASE 155 U/L 40-150 (BEAKER) (test yryd=768) BILIRUBIN TOTAL (BEAKER) 1.7 mg/dL 0.2-1.2 (test uboc=562) SODIUM (BEAKER) (test 141 meq/L 136-145 jwls=008) POTASSIUM (BEAKER) (test 4.4 meq/L 3.5-5.1 zykc=143) CHLORIDE (BEAKER) (test 111 meq/L 98-107 xllb=836) CO2 (BEAKER) (test 17 meq/L 22-29 zkyn=203) BLOOD UREA NITROGEN 37 mg/dL 7-21 (BEAKER) (test vwcl=122) CREATININE (BEAKER) (test 2.07 mg/dL 0.57-1.25 glks=929) GLUCOSE RANDOM (BEAKER) 101 mg/dL 70-105 (test lbei=468) CALCIUM (BEAKER) (test 8.9 mg/dL 8.4-10.2 nctx=357) AST (SGOT) (BEAKER) (test 144 U/L 5-34 vwja=179) ALT (SGPT) (BEAKER) (test 70 U/L 6-55 smtd=314) EGFR (BEAKER) (test 32 mL/min/1.73 sq m ESTIMATED GFR IS NOT nyzg=3412) ACCURATE CREATININE CLEARANCE IN PREDICTING GLOMERULAR FILTRATION RATE. ESTIMATED GFR IS NOT APPLICABLE FOR DIALYSIS PATIENTS. PROTEIN, RANDOM [id number] 07:49:00 Test Item Value Reference Range Comments PROTEIN, URINE (BEAKER) (test hlth=8160) 24 mg/dL 0-14 CREATININE, RANDOM [id number] 07:47:00 Test Item Value Reference Range Comments CREATININE URINE (BEAKER) (test cyhn=047) 46.0 mg/dL Reference Range: No NormalsSODIUM, RANDOM [id number] 07:47:00 Test Item Value Reference Range Comments SODIUM URINE (BEAKER) (test gjrg=451) 65 meq/L Reference Range: No NormalsU/S, ABDOMINAL, [id number] 19:58:00Reason for exam:->GRAYSON, abdominal painShould this be [...] Status post splenectomy. 3. Hepatomegaly. Signed: Sejal [place] Verified Date/Time: 11/07/2017 19:58:17 Reading Location: [address] Consult Reading Room LACTIC ACID, VENOUS, WHOLE [id number] 16:11:00 Test Item Value Reference Range Comments LACTATE BLOOD VENOUS (2) 0.9 mmol/L 0.5-2.2 Specimen slightly hemolyzed (BEAKER) (test xeec=8175) Effective 12/22/2015: Units/Reference Range ChangeNew: 0.5-2.2 mmol/L Previous: 5 -20 mg/dLCBC W/PLT COUNT & AUTO [id number] 10:20:00 Test Item Value Reference Range Comments WHITE BLOOD CELL COUNT (BEAKER) (test rjgg=870) 23.2 K/ L 3.5-10.5 RED BLOOD CELL COUNT (BEAKER) (test hbyc=477) 1.84 M/ L 3.93-5.22 HEMOGLOBIN (BEAKER) (test mmbt=973) 5.8 GM/DL 11.2-15.7 HEMATOCRIT (BEAKER) (test gdbc=608) 17.3 % 34.1-44.9 MEAN CORPUSCULAR VOLUME (BEAKER) (test fbea=282) 94.0 fL 79.4-94.8 MEAN CORPUSCULAR HEMOGLOBIN (BEAKER) (test 31.5 pg 25.6-32.2 cmrr=872) MEAN CORPUSCULAR HEMOGLOBIN CONC (BEAKER) (test 33.5 GM/DL 32.2-35.5 bgob=620) RED CELL DISTRIBUTION WIDTH (BEAKER) (test 24.1 % 11.7-14.4 spue=455) PLATELET COUNT (BEAKER) (test zfyj=851) 249 K/CU MM 150-450 MEAN PLATELET VOLUME (BEAKER) (test jpfh=174) 10.8 fL 9.4-12.3 NUCLEATED RED BLOOD CELLS (BEAKER) (test 48 /100 WBC 0-0 nefq=114) IMMATURE GRANULOCYTES-RELATIVE PERCENT (BEAKER) 2 % 0-1 (test ukqh=5581) (MANUAL DIFFERENTIAL)2017-11-07 10:20:00 Test Item Value Reference Range Comments NEUTROPHILS - REL (DIFF) (BEAKER) (test 68 % edoh=9545) LYMPHOCYTES - REL (DIFF) (BEAKER) (test 27 % reex=3206) MONOCYTES - REL (DIFF) (BEAKER) (test udnl=7818) 5 % EOSINOPHILS - REL (DIFF) (BEAKER) (test 0 % mqob=3196) BASOPHILS - REL (DIFF) (BEAKER) (test wirc=8017) 0 % NEUTROPHILS - ABS (DIFF) (BEAKER) (test 15.78 K/ L 1.80-8.00 gboh=6106) LYMPHOCYTES - ABS (DIFF) (BEAKER) (test 6.26 K/ L 1.48-4.50 rmhr=0273) MONOCYTES - ABS (DIFF) (BEAKER) (test thay=4645) 1.16 K/ L 0.00-1.30 EOSINOPHILS - ABS (DIFF) (BEAKER) (test 0.00 K/ L 0.00-0.50 dbvu=6755) BASOPHILS - ABS (DIFF) (BEAKER) (test qqqc=7327) 0.00 K/ L 0.00-0.20 TOTAL COUNTED (BEAKER) (test dvos=5780) 100 MANUAL NRBC PER 100 CELLS (BEAKER) (test 51 /100 WBC 0-0 lssz=4625) WBC MORPHOLOGY (BEAKER) (test sfqj=614) Normal PLT MORPHOLOGY (BEAKER) (test xlzu=620) Normal ANISOCYTOSIS (BEAKER) (test hplm=440) 3+ many POLYCHROMATOPHILLIC RBCS(BEAKER) (test nmbz=918) 2+ moderate SICKLE CELLS (BEAKER) (test qmaz=688) 3+ many TARGET CELLS (BEAKER) (test taeo=939) 1+ few BASIC METABOLIC [id number] 06:28:00 Test Item Value Reference Range Comments SODIUM (BEAKER) (test 132 meq/L 136-145 ufay=487) POTASSIUM (BEAKER) (test 4.4 meq/L 3.5-5.1 gwha=868) CHLORIDE (BEAKER) (test 109 meq/L 98-107 jvzd=901) CO2 (BEAKER) (test 20 meq/L 22-29 vtbj=546) BLOOD UREA NITROGEN 39 mg/dL 7-21 (BEAKER) (test xdbb=587) CREATININE (BEAKER) (test 2.20 mg/dL 0.57-1.25 kcyu=452) GLUCOSE RANDOM (BEAKER) 123 mg/dL 70-105 (test oobq=957) CALCIUM (BEAKER) (test 8.7 mg/dL 8.4-10.2 tzrc=188) EGFR (BEAKER) (test 30 mL/min/1.73 sq m ESTIMATED GFR IS NOT gwnj=8250) ACCURATE CREATININE CLEARANCE IN PREDICTING GLOMERULAR FILTRATION RATE. ESTIMATED GFR IS NOT APPLICABLE FOR DIALYSIS PATIENTS. COMPREHENSIVE METABOLIC [id number] 18:37:00 Test Item Value Reference Range Comments TOTAL PROTEIN (BEAKER) 8.5 gm/dL 6.0-8.3 (test hvmg=181) ALBUMIN (BEAKER) (test 3.4 g/dL 3.5-5.0 pehp=2400) ALKALINE PHOSPHATASE 166 U/L 40-150 (BEAKER) (test gzls=984) BILIRUBIN TOTAL (BEAKER) 4.0 mg/dL 0.2-1.2 (test ywak=238) SODIUM (BEAKER) (test 142 meq/L 136-145 jxsa=194) POTASSIUM (BEAKER) (test 4.7 meq/L 3.5-5.1 hbhf=094) CHLORIDE (BEAKER) (test 110 meq/L 98-107 ghqc=440) CO2 (BEAKER) (test 22 meq/L 22-29 espw=843) BLOOD UREA NITROGEN 35 mg/dL 7-21 (BEAKER) (test rawu=544) CREATININE (BEAKER) (test 1.97 mg/dL 0.57-1.25 vshd=527) GLUCOSE RANDOM (BEAKER) 119 mg/dL 70-105 (test svir=252) CALCIUM (BEAKER) (test 8.5 mg/dL 8.4-10.2 nchy=863) AST (SGOT) (BEAKER) (test 278 U/L 5-34 hact=295) ALT (SGPT) (BEAKER) (test 92 U/L 6-55 snwq=623) EGFR (BEAKER) (test 34 mL/min/1.73 sq m ESTIMATED GFR IS NOT qdke=2062) ACCURATE CREATININE CLEARANCE IN PREDICTING GLOMERULAR FILTRATION RATE. ESTIMATED GFR IS NOT APPLICABLE FOR DIALYSIS PATIENTS. Specimen slightly ictericCBC W/PLT COUNT & AUTO [id number] 14:59 :00 Test Item Value Reference Range Comments WHITE BLOOD CELL COUNT (BEAKER) (test jhcj=383) 24.3 K/ L 3.5-10.5 RED BLOOD CELL COUNT (BEAKER) (test remu=492) 1.73 M/ L 3.93-5.22 HEMOGLOBIN (BEAKER) (test bkfw=869) 5.5 GM/DL 11.2-15.7 HEMATOCRIT (BEAKER) (test cbnx=415) 16.7 % 34.1-44.9 MEAN CORPUSCULAR VOLUME (BEAKER) (test tsjh=556) 96.5 fL 79.4-94.8 MEAN CORPUSCULAR HEMOGLOBIN (BEAKER) (test 31.8 pg 25.6-32.2 jxne=670) MEAN CORPUSCULAR HEMOGLOBIN CONC (BEAKER) (test 32.9 GM/DL 32.2-35.5 bnym=044) RED CELL DISTRIBUTION WIDTH (BEAKER) (test 25.8 % 11.7-14.4 iorb=246) PLATELET COUNT (BEAKER) (test ffwi=267) 259 K/CU MM 150-450 MEAN PLATELET VOLUME (BEAKER) (test avdc=925) 11.1 fL 9.4-12.3 NUCLEATED RED BLOOD CELLS (BEAKER) (test 29 /100 WBC 0-0 raqi=659) IMMATURE GRANULOCYTES-RELATIVE PERCENT (BEAKER) 2 % 0-1 (test yhoj=6285) (MANUAL DIFFERENTIAL)[id number] 14:59:00 Test Item Value Reference Range Comments NEUTROPHILS - REL (DIFF) (BEAKER) (test 65 % flya=3700) LYMPHOCYTES - REL (DIFF) (BEAKER) (test 26 % ldpb=3922) MONOCYTES - REL (DIFF) (BEAKER) (test ckcy=4289) 8 % MYELOCYTES-REL (DIFF) (BEAKER) (test mvki=7803) 1 % 0-0 NEUTROPHILS - ABS (DIFF) (BEAKER) (test 15.80 K/ L 1.80-8.00 uozw=9718) LYMPHOCYTES - ABS (DIFF) (BEAKER) (test 6.32 K/ L 1.48-4.50 xiau=0392) MONOCYTES - ABS (DIFF) (BEAKER) (test mqic=2695) 1.94 K/ L 0.00-1.30 MYELOCYTES-ABS (DIFF) (BEAKER) (test osyb=1589) 0.24 K/ L 0.00-0.00 TOTAL COUNTED (BEAKER) (test xahj=7091) 100 MANUAL NRBC PER 100 CELLS (BEAKER) (test 34 /100 WBC 0-0 kbnb=7300) WBC MORPHOLOGY (BEAKER) (test kybq=711) Normal PLT MORPHOLOGY (BEAKER) (test vtbq=470) Normal ANISOCYTOSIS (BEAKER) (test iswi=338) 3+ many MATTHEWS-JOLLY BODIES (BEAKER) (test fohd=446) Present POIKILOCYTES (BEAKER) (test vvcf=847) 1+ few POLYCHROMATOPHILLIC RBCS(BEAKER) (test kxqu=589) 2+ moderate SICKLE CELLS (BEAKER) (test yipb=616) 3+ many BASIC METABOLIC [id number] 09:37:00 Test Item Value Reference Range Comments SODIUM (BEAKER) (test 139 meq/L 136-145 uedq=296) POTASSIUM (BEAKER) (test 4.5 meq/L 3.5-5.1 oenn=337) CHLORIDE (BEAKER) (test 107 meq/L 98-107 bukc=462) CO2 (BEAKER) (test 19 meq/L 22-29 hiai=776) BLOOD UREA NITROGEN 27 mg/dL 7-21 (BEAKER) (test egha=157) CREATININE (BEAKER) (test 1.37 mg/dL 0.57-1.25 pqfg=380) GLUCOSE RANDOM (BEAKER) 124 mg/dL 70-105 (test aezz=354) CALCIUM (BEAKER) (test 8.2 mg/dL 8.4-10.2 lqtb=619) EGFR (BEAKER) (test 52 mL/min/1.73 sq m ESTIMATED GFR IS NOT mjsa=6495) ACCURATE CREATININE CLEARANCE IN PREDICTING GLOMERULAR FILTRATION RATE. ESTIMATED GFR IS NOT APPLICABLE FOR DIALYSIS PATIENTS. Specimen slightly ictericURINALYSIS W/ [id number] 06:22:00 Test Item Value Reference Range Comments COLOR (BEAKER) (test qqsb=226) Brown CLARITY (BEAKER) (test czog=119) Cloudy SPECIFIC GRAVITY UA (BEAKER) (test 1.015 1.001-1.035 bdmq=197) PH UA (BEAKER) (test odlq=170) 5.5 5.0-8.0 PROTEIN UA (BEAKER) (test fjjz=120) 100 mg/dL Negative GLUCOSE UA (BEAKER) (test dvgg=357) Negative Negative KETONES UA (BEAKER) (test gjsl=812) Negative Negative BILIRUBIN UA (BEAKER) (test bncr=142) Positive Negative BLOOD UA (BEAKER) (test snzy=869) Large Negative NITRITE UA (BEAKER) (test xqnj=190) Negative Negative LEUKOCYTE ESTERASE UA (BEAKER) (test Trace Negative piqt=329) UROBILINOGEN UA (BEAKER) (test kbhc=828) 4.0 mg/dL 0.2-1.0 RBC UA (BEAKER) (test crlh=137) 0 /HPF WBC UA (BEAKER) (test bdla=315) 27 /HPF MUCUS (BEAKER) (test djkb=8242) Few SQUAMOUS EPITHELIAL (BEAKER) (test 11 /HPF weae=507) SOURCE(BEAKER) (test zpcj=2147) Urine, Clean Catch BASIC METABOLIC [id number] 10:56:00 Test Item Value Reference Range Comments SODIUM (BEAKER) (test 139 meq/L 136-145 byqr=946) POTASSIUM (BEAKER) (test 4.2 meq/L 3.5-5.1 eyrh=896) CHLORIDE (BEAKER) (test 104 meq/L 98-107 ymyq=549) CO2 (BEAKER) (test 23 meq/L 22-29 gmik=358) BLOOD UREA NITROGEN 9 mg/dL 7-21 (BEAKER) (test taat=610) CREATININE (BEAKER) (test 0.66 mg/dL 0.57-1.25 hgty=146) GLUCOSE RANDOM (BEAKER) 109 mg/dL 70-105 (test mitw=520) CALCIUM (BEAKER) (test 8.6 mg/dL 8.4-10.2 bnzo=758) EGFR (BEAKER) (test 121 mL/min/1.73 sq m ESTIMATED GFR IS NOT tfqq=0019) ACCURATE CREATININE CLEARANCE IN PREDICTING GLOMERULAR FILTRATION RATE. ESTIMATED GFR IS NOT APPLICABLE FOR DIALYSIS PATIENTS. Specimen slightly ictericCBC W/PLT COUNT & AUTO [id number] 09:17 :00 Test Item Value Reference Range Comments WHITE BLOOD CELL COUNT (BEAKER) (test paph=343) 18.2 K/ L 3.5-10.5 RED BLOOD CELL COUNT (BEAKER) (test cvej=806) 2.05 M/ L 3.93-5.22 HEMOGLOBIN (BEAKER) (test bevo=582) 6.4 GM/DL 11.2-15.7 HEMATOCRIT (BEAKER) (test tokn=145) 19.9 % 34.1-44.9 MEAN CORPUSCULAR VOLUME (BEAKER) (test wftn=463) 97.1 fL 79.4-94.8 MEAN CORPUSCULAR HEMOGLOBIN (BEAKER) (test 31.2 pg 25.6-32.2 fjdk=756) MEAN CORPUSCULAR HEMOGLOBIN CONC (BEAKER) (test 32.2 GM/DL 32.2-35.5 dcqs=951) RED CELL DISTRIBUTION WIDTH (BEAKER) (test 25.4 % 11.7-14.4 qpxw=219) PLATELET COUNT (BEAKER) (test phmk=164) 227 K/CU MM 150-450 MEAN PLATELET VOLUME (BEAKER) (test iaaw=264) 10.4 fL 9.4-12.3 NUCLEATED RED BLOOD CELLS (BEAKER) (test 18 /100 WBC 0-0 ztqd=379) NEUTROPHILS RELATIVE PERCENT (BEAKER) (test 57 % ldpn=445) LYMPHOCYTES RELATIVE PERCENT (BEAKER) (test 24 % royf=070) MONOCYTES RELATIVE PERCENT (BEAKER) (test 15 % zhps=026) EOSINOPHILS RELATIVE PERCENT (BEAKER) (test 3 % epow=602) BASOPHILS RELATIVE PERCENT (BEAKER) (test 0 % vlri=308) NEUTROPHILS ABSOLUTE COUNT (BEAKER) (test 10.46 K/ L 1.56-6.13 qwop=919) LYMPHOCYTES ABSOLUTE COUNT (BEAKER) (test 4.31 K/ L 1.18-3.74 qbmy=980) MONOCYTES ABSOLUTE COUNT (BEAKER) (test 2.72 K/ L 0.24-0.36 iahm=055) EOSINOPHILS ABSOLUTE COUNT (BEAKER) (test 0.45 K/ L 0.04-0.36 nkzf=668) BASOPHILS ABSOLUTE COUNT (BEAKER) (test 0.07 K/ L 0.01-0.08 xwti=920) IMMATURE GRANULOCYTES-RELATIVE PERCENT (BEAKER) 1 % 0-1 (test zxmo=0135) (MANUAL DIFFERENTIAL)2017-11-05 09:17:00 Test Item Value Reference Range Comments TOTAL COUNTED (BEAKER) (test swdp=3303) WBC MORPHOLOGY (BEAKER) (test wkdq=622) Normal PLT MORPHOLOGY (BEAKER) (test hsgq=072) Normal ANISOCYTOSIS (BEAKER) (test bpvm=795) 2+ moderate POLYCHROMATOPHILLIC RBCS(BEAKER) (test vnvb=391) 2+ moderate SICKLE CELLS (BEAKER) (test ypep=191) 2+ moderate TARGET CELLS (BEAKER) (test vyrc=676) 2+ moderate CREATINE KINASE (CK), TOTAL AND [id number] 22:01:00 Test Item Value Reference Range Comments CREATINE KINASE TOTAL (BEAKER) (test 10 U/L 29-200 hbsa=600) CREATINE KINASE-MB (BEAKER) (test 0.1 ng/mL 0.0-6.6 mdia=460) CREATINE KINASE-MB INDEX (BEAKER) (test 1.0 % Unable to Calculate qgtt=833) CK-MB Reference Range:<6.7 Normal6.7-10.0 Borderline>10.0 AbnormalTROPONIN [id number] 21:16:00 Test Item Value Reference Range Comments TROPONIN I (BEAKER) (test anwk=254) < ng/mL 0.00-0.03 Troponin I (TnI) levels [...] and persistent tachyarrhythmia.CBC W/PLT COUNT & AUTO [id number] 06:49:00 Test Item Value Reference Range Comments WHITE BLOOD CELL COUNT (BEAKER) (test dqze=446) 13.3 K/ L 3.5-10.5 RED BLOOD CELL COUNT (BEAKER) (test cwqv=309) 2.18 M/ L 3.93-5.22 HEMOGLOBIN (BEAKER) (test hueq=510) 6.8 GM/DL 11.2-15.7 HEMATOCRIT (BEAKER) (test twow=502) 21.5 % 34.1-44.9 MEAN CORPUSCULAR VOLUME (BEAKER) (test vsub=451) 98.6 fL 79.4-94.8 MEAN CORPUSCULAR HEMOGLOBIN (BEAKER) (test 31.2 pg 25.6-32.2 dzwx=638) MEAN CORPUSCULAR HEMOGLOBIN CONC (BEAKER) (test 31.6 GM/DL 32.2-35.5 pvmt=903) RED CELL DISTRIBUTION WIDTH (BEAKER) (test 21.1 % 11.7-14.4 hmpx=707) PLATELET COUNT (BEAKER) (test nesi=659) 192 K/CU MM 150-450 MEAN PLATELET VOLUME (BEAKER) (test lwbz=981) 11.4 fL 9.4-12.3 NUCLEATED RED BLOOD CELLS (BEAKER) (test 1 /100 WBC 0-0 ctae=484) NEUTROPHILS RELATIVE PERCENT (BEAKER) (test 51 % ayas=106) LYMPHOCYTES RELATIVE PERCENT (BEAKER) (test 30 % dvjx=238) MONOCYTES RELATIVE PERCENT (BEAKER) (test 16 % vvit=140) EOSINOPHILS RELATIVE PERCENT (BEAKER) (test 2 % ulge=719) BASOPHILS RELATIVE PERCENT (BEAKER) (test 0 % ekby=064) NEUTROPHILS ABSOLUTE COUNT (BEAKER) (test 6.84 K/ L 1.56-6.13 tzcm=036) LYMPHOCYTES ABSOLUTE COUNT (BEAKER) (test 4.06 K/ L 1.18-3.74 iuha=723) MONOCYTES ABSOLUTE COUNT (BEAKER) (test 2.12 K/ L 0.24-0.36 fdyo=297) EOSINOPHILS ABSOLUTE COUNT (BEAKER) (test 0.26 K/ L 0.04-0.36 pqdk=247) BASOPHILS ABSOLUTE COUNT (BEAKER) (test 0.02 K/ L 0.01-0.08 icqd=527) IMMATURE GRANULOCYTES-RELATIVE PERCENT (BEAKER) 0 % 0-1 (test pzkd=3929) BASIC METABOLIC [id number] 07:06:00 Test Item Value Reference Range Comments SODIUM (BEAKER) (test 138 meq/L 136-145 npvn=268) POTASSIUM (BEAKER) (test 4.2 meq/L 3.5-5.1 yyfd=155) CHLORIDE (BEAKER) (test 103 meq/L 98-107 iddz=946) CO2 (BEAKER) (test 28 meq/L 22-29 cidv=039) BLOOD UREA NITROGEN 11 mg/dL 7-21 (BEAKER) (test pqgm=020) CREATININE (BEAKER) (test 0.55 mg/dL 0.57-1.25 cylo=557) GLUCOSE RANDOM (BEAKER) 95 mg/dL 70-105 (test xdzx=939) CALCIUM (BEAKER) (test 9.5 mg/dL 8.4-10.2 xhgh=127) EGFR (BEAKER) (test 150 mL/min/1.73 sq m ESTIMATED GFR IS NOT mjbu=9472) ACCURATE CREATININE CLEARANCE IN PREDICTING GLOMERULAR FILTRATION RATE. ESTIMATED GFR IS NOT APPLICABLE FOR DIALYSIS PATIENTS. CBC W/PLT COUNT & AUTO [id number] 06:48:00 Test Item Value Reference Range Comments WHITE BLOOD CELL COUNT (BEAKER) (test malx=804) 12.8 K/ L 3.5-10.5 RED BLOOD CELL COUNT (BEAKER) (test iywi=032) 2.22 M/ L 3.93-5.22 HEMOGLOBIN (BEAKER) (test styw=683) 7.2 GM/DL 11.2-15.7 HEMATOCRIT (BEAKER) (test xbkl=231) 21.9 % 34.1-44.9 MEAN CORPUSCULAR VOLUME (BEAKER) (test veyk=907) 98.6 fL 79.4-94.8 MEAN CORPUSCULAR HEMOGLOBIN (BEAKER) (test 32.4 pg 25.6-32.2 weew=005) MEAN CORPUSCULAR HEMOGLOBIN CONC (BEAKER) (test 32.9 GM/DL 32.2-35.5 xlna=243) RED CELL DISTRIBUTION WIDTH (BEAKER) (test 21.2 % 11.7-14.4 wbhf=525) PLATELET COUNT (BEAKER) (test ghne=349) 176 K/CU MM 150-450 MEAN PLATELET VOLUME (BEAKER) (test hear=452) 11.2 fL 9.4-12.3 NUCLEATED RED BLOOD CELLS (BEAKER) (test 5 /100 WBC 0-0 omfr=821) NEUTROPHILS RELATIVE PERCENT (BEAKER) (test 49 % gkya=798) LYMPHOCYTES RELATIVE PERCENT (BEAKER) (test 31 % qxme=605) MONOCYTES RELATIVE PERCENT (BEAKER) (test 19 % jxzx=104) EOSINOPHILS RELATIVE PERCENT (BEAKER) (test 2 % lewm=398) BASOPHILS RELATIVE PERCENT (BEAKER) (test 0 % ecij=784) NEUTROPHILS ABSOLUTE COUNT (BEAKER) (test 6.23 K/ L 1.56-6.13 fkhe=551) LYMPHOCYTES ABSOLUTE COUNT (BEAKER) (test 3.90 K/ L 1.18-3.74 wggp=152) MONOCYTES ABSOLUTE COUNT (BEAKER) (test 2.37 K/ L 0.24-0.36 onlj=062) EOSINOPHILS ABSOLUTE COUNT (BEAKER) (test 0.24 K/ L 0.04-0.36 xszl=951) BASOPHILS ABSOLUTE COUNT (BEAKER) (test 0.01 K/ L 0.01-0.08 qkpb=199) IMMATURE GRANULOCYTES-RELATIVE PERCENT (BEAKER) 0 % 0-1 (test ppio=2210) (MANUAL DIFFERENTIAL)2017-06-03 06:48:00 Test Item Value Reference Range Comments TOTAL COUNTED (BEAKER) (test tebl=9437) WBC MORPHOLOGY (BEAKER) (test runs=776) Normal PLT MORPHOLOGY (BEAKER) (test lsme=302) Normal ANISOCYTOSIS (BEAKER) (test aqyw=957) 3+ many MATTHEWS-JOLLY BODIES (BEAKER) (test lgmp=636) Present MACROCYTES (BEAKER) (test nbcz=588) 3+ many SICKLE CELLS (BEAKER) (test bgns=761) 1+ few TARGET CELLS (BEAKER) (test njoq=151) 1+ few BASIC METABOLIC [id number] 07:33:00 Test Item Value Reference Range Comments SODIUM (BEAKER) (test 138 meq/L 136-145 zvrd=303) POTASSIUM (BEAKER) (test 4.5 meq/L 3.5-5.1 ykoi=693) CHLORIDE (BEAKER) (test 102 meq/L 98-107 tszh=686) CO2 (BEAKER) (test 27 meq/L 22-29 ctqv=263) BLOOD UREA NITROGEN 11 mg/dL 7-21 (BEAKER) (test xdfo=939) CREATININE (BEAKER) (test 0.55 mg/dL 0.57-1.25 aenh=812) GLUCOSE RANDOM (BEAKER) 85 mg/dL 70-105 (test vhdl=282) CALCIUM (BEAKER) (test 9.5 mg/dL 8.4-10.2 fxfh=759) EGFR (BEAKER) (test 150 mL/min/1.73 sq m ESTIMATED GFR IS NOT mkee=5827) ACCURATE CREATININE CLEARANCE IN PREDICTING GLOMERULAR FILTRATION RATE. ESTIMATED GFR IS NOT APPLICABLE FOR DIALYSIS PATIENTS. CBC W/PLT COUNT & AUTO [id number] 07:13:00 Test Item Value Reference Range Comments WHITE BLOOD CELL COUNT (BEAKER) (test aqtz=417) 14.2 K/ L 3.5-10.5 RED BLOOD CELL COUNT (BEAKER) (test hmqy=260) 2.39 M/ L 3.93-5.22 HEMOGLOBIN (BEAKER) (test rjse=444) 7.6 GM/DL 11.2-15.7 HEMATOCRIT (BEAKER) (test nvjw=216) 23.5 % 34.1-44.9 MEAN CORPUSCULAR VOLUME (BEAKER) (test axeo=040) 98.3 fL 79.4-94.8 MEAN CORPUSCULAR HEMOGLOBIN (BEAKER) (test 31.8 pg 25.6-32.2 bymf=580) MEAN CORPUSCULAR HEMOGLOBIN CONC (BEAKER) (test 32.3 GM/DL 32.2-35.5 rrlr=494) RED CELL DISTRIBUTION WIDTH (BEAKER) (test 21.1 % 11.7-14.4 irvq=363) PLATELET COUNT (BEAKER) (test ibtu=230) 173 K/CU MM 150-450 MEAN PLATELET VOLUME (BEAKER) (test sgdn=951) 11.7 fL 9.4-12.3 NUCLEATED RED BLOOD CELLS (BEAKER) (test 11 /100 WBC 0-0 nwfk=543) NEUTROPHILS RELATIVE PERCENT (BEAKER) (test 53 % qhgi=537) LYMPHOCYTES RELATIVE PERCENT (BEAKER) (test 27 % frts=455) MONOCYTES RELATIVE PERCENT (BEAKER) (test 18 % abhm=407) EOSINOPHILS RELATIVE PERCENT (BEAKER) (test 1 % lfio=011) BASOPHILS RELATIVE PERCENT (BEAKER) (test 0 % lydw=555) NEUTROPHILS ABSOLUTE COUNT (BEAKER) (test 7.56 K/ L 1.56-6.13 uvsc=482) LYMPHOCYTES ABSOLUTE COUNT (BEAKER) (test 3.89 K/ L 1.18-3.74 glqv=715) MONOCYTES ABSOLUTE COUNT (BEAKER) (test 2.52 K/ L 0.24-0.36 uqhx=337) EOSINOPHILS ABSOLUTE COUNT (BEAKER) (test 0.20 K/ L 0.04-0.36 rnhg=794) BASOPHILS ABSOLUTE COUNT (BEAKER) (test 0.02 K/ L 0.01-0.08 mhlv=194) IMMATURE GRANULOCYTES-RELATIVE PERCENT (BEAKER) 0 % 0-1 (test kegt=0651) CBC W/PLT COUNT & AUTO [id number] 16:45:00 Test Item Value Reference Range Comments WHITE BLOOD CELL COUNT (BEAKER) (test sczu=661) 15.1 K/ L 3.5-10.5 RED BLOOD CELL COUNT (BEAKER) (test eeeo=162) 2.36 M/ L 3.93-5.22 HEMOGLOBIN (BEAKER) (test hysu=195) 7.5 GM/DL 11.2-15.7 HEMATOCRIT (BEAKER) (test mfja=302) 23.0 % 34.1-44.9 MEAN CORPUSCULAR VOLUME (BEAKER) (test pdhi=767) 97.5 fL 79.4-94.8 MEAN CORPUSCULAR HEMOGLOBIN (BEAKER) (test 31.8 pg 25.6-32.2 ubxy=726) MEAN CORPUSCULAR HEMOGLOBIN CONC (BEAKER) (test 32.6 GM/DL 32.2-35.5 ilfs=551) RED CELL DISTRIBUTION WIDTH (BEAKER) (test 20.7 % 11.7-14.4 hbix=395) PLATELET COUNT (BEAKER) (test wbcl=153) 179 K/CU MM 150-450 MEAN PLATELET VOLUME (BEAKER) (test gmwb=284) 11.9 fL 9.4-12.3 NUCLEATED RED BLOOD CELLS (BEAKER) (test 12 /100 WBC 0-0 jhpo=015) NEUTROPHILS RELATIVE PERCENT (BEAKER) (test 53 % tzmz=478) LYMPHOCYTES RELATIVE PERCENT (BEAKER) (test 27 % nawp=424) MONOCYTES RELATIVE PERCENT (BEAKER) (test 18 % haez=099) EOSINOPHILS RELATIVE PERCENT (BEAKER) (test 2 % foch=336) BASOPHILS RELATIVE PERCENT (BEAKER) (test 0 % yucv=884) NEUTROPHILS ABSOLUTE COUNT (BEAKER) (test 8.03 K/ L 1.56-6.13 hfpo=445) LYMPHOCYTES ABSOLUTE COUNT (BEAKER) (test 3.99 K/ L 1.18-3.74 nrsb=129) MONOCYTES ABSOLUTE COUNT (BEAKER) (test 2.65 K/ L 0.24-0.36 onkc=669) EOSINOPHILS ABSOLUTE COUNT (BEAKER) (test 0.31 K/ L 0.04-0.36 hqso=759) BASOPHILS ABSOLUTE COUNT (BEAKER) (test 0.02 K/ L 0.01-0.08 jgyc=451) IMMATURE GRANULOCYTES-RELATIVE PERCENT (BEAKER) 0 % 0-1 (test wsqr=3221) BASIC METABOLIC [id number] 06:17:00 Test Item Value Reference Range Comments SODIUM (BEAKER) (test 138 meq/L 136-145 wkxt=041) POTASSIUM (BEAKER) (test 4.1 meq/L 3.5-5.1 ovmx=137) CHLORIDE (BEAKER) (test 100 meq/L 98-107 whyl=194) CO2 (BEAKER) (test 30 meq/L 22-29 txux=842) BLOOD UREA NITROGEN 11 mg/dL 7-21 (BEAKER) (test czxq=790) CREATININE (BEAKER) (test 0.58 mg/dL 0.57-1.25 kily=211) GLUCOSE RANDOM (BEAKER) 90 mg/dL 70-105 (test zvqd=374) CALCIUM (BEAKER) (test 9.4 mg/dL 8.4-10.2 ssau=959) EGFR (BEAKER) (test 141 mL/min/1.73 sq m ESTIMATED GFR IS NOT nwcz=2231) ACCURATE CREATININE CLEARANCE IN PREDICTING GLOMERULAR FILTRATION RATE. ESTIMATED GFR IS NOT APPLICABLE FOR DIALYSIS PATIENTS. CBC W/PLT COUNT & AUTO [id number] 13:41:00 Test Item Value Reference Range Comments WHITE BLOOD CELL COUNT (BEAKER) (test csnh=978) 13.9 K/ L 3.5-10.5 RED BLOOD CELL COUNT (BEAKER) (test acxn=149) 2.38 M/ L 3.93-5.22 HEMOGLOBIN (BEAKER) (test satb=271) 7.5 GM/DL 11.2-15.7 HEMATOCRIT (BEAKER) (test hykl=024) 23.2 % 34.1-44.9 MEAN CORPUSCULAR VOLUME (BEAKER) (test nvie=976) 97.5 fL 79.4-94.8 MEAN CORPUSCULAR HEMOGLOBIN (BEAKER) (test 31.5 pg 25.6-32.2 ycdg=526) MEAN CORPUSCULAR HEMOGLOBIN CONC (BEAKER) (test 32.3 GM/DL 32.2-35.5 yexq=506) RED CELL DISTRIBUTION WIDTH (BEAKER) (test 20.2 % 11.7-14.4 qdoa=787) PLATELET COUNT (BEAKER) (test vrlp=170) 171 K/CU MM 150-450 MEAN PLATELET VOLUME (BEAKER) (test izkr=425) 12.0 fL 9.4-12.3 NUCLEATED RED BLOOD CELLS (BEAKER) (test 8 /100 WBC 0-0 rxiv=000) NEUTROPHILS RELATIVE PERCENT (BEAKER) (test 57 % luif=057) LYMPHOCYTES RELATIVE PERCENT (BEAKER) (test 23 % myez=495) MONOCYTES RELATIVE PERCENT (BEAKER) (test 18 % qmru=484) EOSINOPHILS RELATIVE PERCENT (BEAKER) (test 2 % bvlt=038) BASOPHILS RELATIVE PERCENT (BEAKER) (test 0 % oekk=295) NEUTROPHILS ABSOLUTE COUNT (BEAKER) (test 7.89 K/ L 1.56-6.13 livk=367) LYMPHOCYTES ABSOLUTE COUNT (BEAKER) (test 3.13 K/ L 1.18-3.74 wtee=523) MONOCYTES ABSOLUTE COUNT (BEAKER) (test 2.52 K/ L 0.24-0.36 ipsi=915) EOSINOPHILS ABSOLUTE COUNT (BEAKER) (test 0.25 K/ L 0.04-0.36 zzst=640) BASOPHILS ABSOLUTE COUNT (BEAKER) (test 0.02 K/ L 0.01-0.08 ynnf=622) IMMATURE GRANULOCYTES-RELATIVE PERCENT (BEAKER) 1 % 0-1 (test cvxf=9349) (MANUAL DIFFERENTIAL)2017-05-31 13:41:00 Test Item Value Reference Range Comments TOTAL COUNTED (BEAKER) (test azmz=6234) WBC MORPHOLOGY (BEAKER) (test zsjj=145) Normal PLT MORPHOLOGY (BEAKER) (test qhke=440) Normal POLYCHROMATOPHILLIC RBCS(BEAKER) (test fehy=831) 2+ moderate SICKLE CELLS (BEAKER) (test tnkq=639) 1+ few TARGET CELLS (BEAKER) (test bvvb=449) 2+ moderate URINE [id number] 12:19:00 Test Item Value Reference Range Comments CULTURE (BEAKER) (test 20-29,000 col/mL skin valentino vmwy=4433) BASIC METABOLIC [id number] 07:23:00 Test Item Value Reference Range Comments SODIUM (BEAKER) (test 136 meq/L 136-145 zcxj=581) POTASSIUM (BEAKER) (test 3.9 meq/L 3.5-5.1 ubcs=168) CHLORIDE (BEAKER) (test 97 meq/L 98-107 fmlp=133) CO2 (BEAKER) (test 30 meq/L 22-29 ioxo=263) BLOOD UREA NITROGEN 9 mg/dL 7-21 (BEAKER) (test chlc=889) CREATININE (BEAKER) (test 0.56 mg/dL 0.57-1.25 kzsc=933) GLUCOSE RANDOM (BEAKER) 100 mg/dL 70-105 (test vrgr=620) CALCIUM (BEAKER) (test 9.5 mg/dL 8.4-10.2 toaa=161) EGFR (BEAKER) (test 147 mL/min/1.73 sq m ESTIMATED GFR IS NOT uwed=8054) ACCURATE CREATININE CLEARANCE IN PREDICTING GLOMERULAR FILTRATION RATE. ESTIMATED GFR IS NOT APPLICABLE FOR DIALYSIS PATIENTS. U/S, ABDOMINAL, [id number] 23:52:00Reason for exam:->painShould this be performed at [...] post splenectomy and cholecystectomy. Signed: Jamey Gay MDReport Verified Date/Time: 05/30/2017 23:52:25 Reading Location: [address] Consult Reading Room 11:52 PMCBC W/PLT COUNT & AUTO [id number] 17:30:00 Test Item Value Reference Range Comments WHITE BLOOD CELL COUNT (BEAKER) (test ezpd=801) 14.0 K/ L 3.5-10.5 RED BLOOD CELL COUNT (BEAKER) (test iiwa=934) 2.41 M/ L 3.93-5.22 HEMOGLOBIN (BEAKER) (test uifm=030) 7.7 GM/DL 11.2-15.7 HEMATOCRIT (BEAKER) (test jbsv=268) 23.3 % 34.1-44.9 MEAN CORPUSCULAR VOLUME (BEAKER) (test mcpr=368) 96.7 fL 79.4-94.8 MEAN CORPUSCULAR HEMOGLOBIN (BEAKER) (test 32.0 pg 25.6-32.2 qifz=449) MEAN CORPUSCULAR HEMOGLOBIN CONC (BEAKER) (test 33.0 GM/DL 32.2-35.5 mlww=662) RED CELL DISTRIBUTION WIDTH (BEAKER) (test 20.0 % 11.7-14.4 ecwo=552) PLATELET COUNT (BEAKER) (test jhof=695) 163 K/CU MM 150-450 MEAN PLATELET VOLUME (BEAKER) (test fspk=129) 11.7 fL 9.4-12.3 NUCLEATED RED BLOOD CELLS (BEAKER) (test 4 /100 WBC 0-0 cxzk=250) NEUTROPHILS RELATIVE PERCENT (BEAKER) (test 47 % pslp=256) LYMPHOCYTES RELATIVE PERCENT (BEAKER) (test 32 % lyfl=858) MONOCYTES RELATIVE PERCENT (BEAKER) (test 18 % fvtr=232) EOSINOPHILS RELATIVE PERCENT (BEAKER) (test 3 % qidz=382) BASOPHILS RELATIVE PERCENT (BEAKER) (test 0 % fipn=000) NEUTROPHILS ABSOLUTE COUNT (BEAKER) (test 6.58 K/ L 1.56-6.13 zrkk=703) LYMPHOCYTES ABSOLUTE COUNT (BEAKER) (test 4.40 K/ L 1.18-3.74 ugdu=279) MONOCYTES ABSOLUTE COUNT (BEAKER) (test 2.49 K/ L 0.24-0.36 jcrf=384) EOSINOPHILS ABSOLUTE COUNT (BEAKER) (test 0.44 K/ L 0.04-0.36 lxiq=166) BASOPHILS ABSOLUTE COUNT (BEAKER) (test 0.02 K/ L 0.01-0.08 edww=968) IMMATURE GRANULOCYTES-RELATIVE PERCENT (BEAKER) 0 % 0-1 (test zccs=4527) BASIC METABOLIC [id number] 06:33:00 Test Item Value Reference Range Comments SODIUM (BEAKER) (test 139 meq/L 136-145 ijve=408) POTASSIUM (BEAKER) (test 4.0 meq/L 3.5-5.1 vpia=338) CHLORIDE (BEAKER) (test 102 meq/L 98-107 bjkc=043) CO2 (BEAKER) (test 28 meq/L 22-29 zmnd=093) BLOOD UREA NITROGEN 7 mg/dL 7-21 (BEAKER) (test nsak=587) CREATININE (BEAKER) (test 0.54 mg/dL 0.57-1.25 hyxd=571) GLUCOSE RANDOM (BEAKER) 95 mg/dL 70-105 (test jdit=797) CALCIUM (BEAKER) (test 9.6 mg/dL 8.4-10.2 xxud=725) EGFR (BEAKER) (test 153 mL/min/1.73 sq m ESTIMATED GFR IS NOT oxcc=6318) ACCURATE CREATININE CLEARANCE IN PREDICTING GLOMERULAR FILTRATION RATE. ESTIMATED GFR IS NOT APPLICABLE FOR DIALYSIS PATIENTS. CBC W/PLT COUNT & AUTO [id number] 13:41:00 Test Item Value Reference Range Comments WHITE BLOOD CELL COUNT (BEAKER) (test ynkl=388) 14.6 K/ L 3.5-10.5 RED BLOOD CELL COUNT (BEAKER) (test hewh=917) 1.85 M/ L 3.93-5.22 HEMOGLOBIN (BEAKER) (test bpeu=060) 5.9 GM/DL 11.2-15.7 HEMATOCRIT (BEAKER) (test izov=426) 18.5 % 34.1-44.9 MEAN CORPUSCULAR VOLUME (BEAKER) (test hgip=837) 100.0 fL 79.4-94.8 MEAN CORPUSCULAR HEMOGLOBIN (BEAKER) (test 31.9 pg 25.6-32.2 fuby=798) MEAN CORPUSCULAR HEMOGLOBIN CONC (BEAKER) (test 31.9 GM/DL 32.2-35.5 vnpt=024) RED CELL DISTRIBUTION WIDTH (BEAKER) (test 21.0 % 11.7-14.4 hkkv=013) PLATELET COUNT (BEAKER) (test iyeb=299) 169 K/CU MM 150-450 MEAN PLATELET VOLUME (BEAKER) (test xtpw=143) 12.1 fL 9.4-12.3 NUCLEATED RED BLOOD CELLS (BEAKER) (test 3 /100 WBC 0-0 mstm=452) NEUTROPHILS RELATIVE PERCENT (BEAKER) (test 52 % rucg=924) LYMPHOCYTES RELATIVE PERCENT (BEAKER) (test 28 % ymrq=607) MONOCYTES RELATIVE PERCENT (BEAKER) (test 16 % yqed=534) EOSINOPHILS RELATIVE PERCENT (BEAKER) (test 4 % hwgi=732) BASOPHILS RELATIVE PERCENT (BEAKER) (test 0 % llkh=734) NEUTROPHILS ABSOLUTE COUNT (BEAKER) (test 7.50 K/ L 1.56-6.13 tbbe=502) LYMPHOCYTES ABSOLUTE COUNT (BEAKER) (test 4.08 K/ L 1.18-3.74 vxiq=006) MONOCYTES ABSOLUTE COUNT (BEAKER) (test 2.34 K/ L 0.24-0.36 ogxz=281) EOSINOPHILS ABSOLUTE COUNT (BEAKER) (test 0.56 K/ L 0.04-0.36 vtxj=699) BASOPHILS ABSOLUTE COUNT (BEAKER) (test 0.02 K/ L 0.01-0.08 eroi=842) IMMATURE GRANULOCYTES-RELATIVE PERCENT (BEAKER) 0 % 0-1 (test xhvd=0279) (MANUAL DIFFERENTIAL)2017-05-29 13:41:00 Test Item Value Reference Range Comments TOTAL COUNTED (BEAKER) (test pwkv=5107) WBC MORPHOLOGY (BEAKER) (test tmmr=741) Normal PLT MORPHOLOGY (BEAKER) (test itne=224) Normal POLYCHROMATOPHILLIC RBCS(BEAKER) (test heam=625) 2+ moderate SICKLE CELLS (BEAKER) (test lfct=526) 1+ few TARGET CELLS (BEAKER) (test igpd=740) 2+ moderate BASIC METABOLIC [id number] 07:38:00 Test Item Value Reference Range Comments SODIUM (BEAKER) (test 140 meq/L 136-145 hivm=105) POTASSIUM (BEAKER) (test 3.9 meq/L 3.5-5.1 ieoh=797) CHLORIDE (BEAKER) (test 104 meq/L 98-107 xhll=026) CO2 (BEAKER) (test 28 meq/L 22-29 zgni=751) BLOOD UREA NITROGEN 8 mg/dL 7-21 (BEAKER) (test ovdg=946) CREATININE (BEAKER) (test 0.56 mg/dL 0.57-1.25 epra=792) GLUCOSE RANDOM (BEAKER) 129 mg/dL 70-105 (test mjuq=431) CALCIUM (BEAKER) (test 9.2 mg/dL 8.4-10.2 khqt=737) EGFR (BEAKER) (test 147 mL/min/1.73 sq m ESTIMATED GFR IS NOT hbpo=1501) ACCURATE CREATININE CLEARANCE IN PREDICTING GLOMERULAR FILTRATION RATE. ESTIMATED GFR IS NOT APPLICABLE FOR DIALYSIS PATIENTS. CBC W/PLT COUNT & AUTO [id number] 15:40:00 Test Item Value Reference Range Comments WHITE BLOOD CELL COUNT (BEAKER) (test deii=458) 15.5 K/ L 3.5-10.5 RED BLOOD CELL COUNT (BEAKER) (test dyhy=744) 2.13 M/ L 3.93-5.22 HEMOGLOBIN (BEAKER) (test eunb=268) 6.8 GM/DL 11.2-15.7 HEMATOCRIT (BEAKER) (test wiel=583) 21.1 % 34.1-44.9 MEAN CORPUSCULAR VOLUME (BEAKER) (test zwxm=201) 99.1 fL 79.4-94.8 MEAN CORPUSCULAR HEMOGLOBIN (BEAKER) (test 31.9 pg 25.6-32.2 jgxf=184) MEAN CORPUSCULAR HEMOGLOBIN CONC (BEAKER) (test 32.2 GM/DL 32.2-35.5 ouzi=500) RED CELL DISTRIBUTION WIDTH (BEAKER) (test 20.8 % 11.7-14.4 tqyz=682) PLATELET COUNT (BEAKER) (test gxyo=833) 178 K/CU MM 150-450 MEAN PLATELET VOLUME (BEAKER) (test zivt=031) 11.9 fL 9.4-12.3 NUCLEATED RED BLOOD CELLS (BEAKER) (test 2 /100 WBC 0-0 dtej=005) NEUTROPHILS RELATIVE PERCENT (BEAKER) (test 47 % yfdc=007) LYMPHOCYTES RELATIVE PERCENT (BEAKER) (test 34 % ltmy=838) MONOCYTES RELATIVE PERCENT (BEAKER) (test 16 % yhng=543) EOSINOPHILS RELATIVE PERCENT (BEAKER) (test 3 % xpoy=421) BASOPHILS RELATIVE PERCENT (BEAKER) (test 0 % awcs=095) NEUTROPHILS ABSOLUTE COUNT (BEAKER) (test 7.20 K/ L 1.56-6.13 nssi=061) LYMPHOCYTES ABSOLUTE COUNT (BEAKER) (test 5.22 K/ L 1.18-3.74 wqzv=449) MONOCYTES ABSOLUTE COUNT (BEAKER) (test 2.50 K/ L 0.24-0.36 yben=005) EOSINOPHILS ABSOLUTE COUNT (BEAKER) (test 0.48 K/ L 0.04-0.36 uocm=534) BASOPHILS ABSOLUTE COUNT (BEAKER) (test 0.02 K/ L 0.01-0.08 lmme=957) IMMATURE GRANULOCYTES-RELATIVE PERCENT (BEAKER) 1 % 0-1 (test tofz=1854) (MANUAL DIFFERENTIAL)2017-05-28 15:40:00 Test Item Value Reference Range Comments TOTAL COUNTED (BEAKER) (test fcpj=1467) WBC MORPHOLOGY (BEAKER) (test yyhm=468) Normal PLT MORPHOLOGY (BEAKER) (test owim=126) Normal ANISOCYTOSIS (BEAKER) (test nfoz=805) 2+ moderate POLYCHROMATOPHILLIC RBCS(BEAKER) (test uqto=368) 2+ moderate SICKLE CELLS (BEAKER) (test nexf=775) 1+ few TARGET CELLS (BEAKER) (test btih=521) 2+ moderate URINALYSIS W/ [id number] 15:13:00 Test Item Value Reference Range Comments COLOR (BEAKER) (test gjyt=917) Yellow CLARITY (BEAKER) (test ifer=063) Clear SPECIFIC GRAVITY UA (BEAKER) (test ynso=604) 1.008 1.001-1.035 PH UA (BEAKER) (test vdtd=514) 6.0 5.0-8.0 PROTEIN UA (BEAKER) (test qjzs=186) Negative Negative GLUCOSE UA (BEAKER) (test dphu=497) Negative Negative KETONES UA (BEAKER) (test lnce=053) Negative Negative BILIRUBIN UA (BEAKER) (test hqnw=447) Negative Negative BLOOD UA (BEAKER) (test xguk=252) Negative Negative NITRITE UA (BEAKER) (test xuec=455) Negative Negative LEUKOCYTE ESTERASE UA (BEAKER) (test rbsl=372) Negative Negative UROBILINOGEN UA (BEAKER) (test fmkb=045) 0.2 mg/dL 0.2-1.0 RBC UA (BEAKER) (test dlih=173) < /HPF WBC UA (BEAKER) (test oeow=195) 2 /HPF MUCUS (BEAKER) (test zrco=3136) Rare SQUAMOUS EPITHELIAL (BEAKER) (test cduj=032) 5 /HPF SOURCE(BEAKER) (test bufi=9111) Urine, Voided BASIC METABOLIC [id number] 06:26:00 Test Item Value Reference Range Comments SODIUM (BEAKER) (test 139 meq/L 136-145 iezn=269) POTASSIUM (BEAKER) (test 3.8 meq/L 3.5-5.1 proq=833) CHLORIDE (BEAKER) (test 104 meq/L 98-107 oglr=436) CO2 (BEAKER) (test 30 meq/L 22-29 cckj=104) BLOOD UREA NITROGEN 6 mg/dL 7-21 (BEAKER) (test xuti=199) CREATININE (BEAKER) (test 0.56 mg/dL 0.57-1.25 uavc=868) GLUCOSE RANDOM (BEAKER) 102 mg/dL 70-105 (test wkbr=200) CALCIUM (BEAKER) (test 9.0 mg/dL 8.4-10.2 kcce=889) EGFR (BEAKER) (test 147 mL/min/1.73 sq m ESTIMATED GFR IS NOT oskm=7189) ACCURATE CREATININE CLEARANCE IN PREDICTING GLOMERULAR FILTRATION RATE. ESTIMATED GFR IS NOT APPLICABLE FOR DIALYSIS PATIENTS.
--- NOTE | 2018-02-26 02:57 | EDPHYS ---
Physician Documentation [facility] Name: Brennon Berg Age: 37 yrs Sex: Female : 1980 Arrival Date: 02/26/2018 Time: 01:48 Bed 6 Private MD: Adama Rod E ED Physician Spenser Luis HPI: 02/26 02:51 This 37 yrs old Black Female presents to ER via Law Enforcement with complaints of anupam Sickle Cell Crisis. 02:51 The patient presents with trouble concentrating. Onset: The symptoms/episode anupam began/occurred 2 day(s) ago. Possible causes: unknown. Associated signs and symptoms: Pertinent positives: stress. Current symptoms: In the emergency department the patient's symptoms have improved, moderately. Patient's baseline: Neuro: alert and fully oriented. The patient has not experienced similar symptoms in the past. Historical: - Allergies: 02:00 Fentanyl; ak1 02:00 Morphine; ak1 02:00 Reglan; ak1 02:00 Stadol; ak1 02:00 Toradol; ak1 02:00 tramadol; ak1 02:00 Trazodone; ak1 02:00 Ultram; ak1 02:00 Zofran; ak1 - Home Meds: 02:00 gabapentin 300 mg Oral cap 1 cap 3 times per day [Active]; Hydrea 500 mg Oral cap TID ak1 [Active]; hydrocodone-acetaminophen 2.5-500 mg Oral tab 1 tab every 4 hours [Active]; hydroxyurea 500 mg Oral cap 1 cap every 3 days [Active]; Keppra 250 mg Oral tab 1 tabs 2 times per day [Active]; Promethazine Oral [Active]; Xanax 2 mg Oral tab 3 times per day [Active]; - PMHx: 02:00 aplastic anemia; CVA; Myocardial infarction; Seizures; Sickle Cell; ak1 - PSHx: 02:00 Hysterectomy; Cholecystectomy; splenectomy; ; ak1 - Immunization history:: Adult Immunizations unknown. - Social history:: Smoking status: unknown. - Ebola Screening: : No symptoms or risks identified at this time. ROS: 02:53 Constitutional: Negative for fever, chills, and weight loss, Eyes: Negative for injury, anupam pain, redness, and discharge, ENT: Negative for injury, pain, and discharge, Neck: Negative for injury, pain, and swelling, Cardiovascular: Negative for chest pain, palpitations, and edema, Respiratory: Negative for shortness of breath, cough, wheezing, and pleuritic chest pain, Abdomen/GI: Negative for abdominal pain, nausea, vomiting, diarrhea, and constipation, Back: Negative for injury and pain, : Negative for injury, bleeding, discharge, and swelling, MS/Extremity: Negative for injury and deformity, Skin: Negative for injury, rash, and discoloration, Psych: Negative for depression, anxiety, suicide ideation, homicidal ideation, and hallucinations, Allergy/Immunology: Negative for hives, rash, and allergies, Endocrine: Negative for neck swelling, polydipsia, polyuria, polyphagia, and marked weight changes, Hematologic/Lymphatic: Negative for swollen nodes, abnormal bleeding, and unusual bruising. 02:53 Neuro: Positive for weakness. Exam: 02:53 Constitutional: This is a well developed, well nourished patient who is awake, alert, anupam and in no acute distress. Head/Face: Normocephalic, atraumatic. Eyes: Pupils equal round and reactive to light, extra-ocular motions intact. Lids and lashes normal. Conjunctiva and sclera are non-icteric and not injected. Cornea within normal limits. Periorbital areas with no swelling, redness, or edema. ENT: Nares patent. No nasal discharge, no septal abnormalities noted. Tympanic membranes are normal and external auditory canals are clear. Oropharynx with no redness, swelling, or masses, exudates, or evidence of obstruction, uvula midline. Mucous membranes moist. Neck: Trachea midline, no thyromegaly or masses palpated, and no cervical lymphadenopathy. Supple, full range of motion without nuchal rigidity, or vertebral point tenderness. No Meningismus. Chest/axilla: Normal chest wall appearance and motion. Nontender with no deformity. No lesions are appreciated. Cardiovascular: Regular rate and rhythm with a normal S1 and S2. No gallops, murmurs, or rubs. Normal PMI, no JVD. No pulse deficits. Respiratory: Lungs have equal breath sounds bilaterally, clear to auscultation and percussion. No rales, rhonchi or wheezes noted. No increased work of breathing, no retractions or nasal flaring. Abdomen/GI: Soft, non-tender, with normal bowel sounds. No distension or tympany. No guarding or rebound. No evidence of tenderness throughout. Back: No spinal tenderness. No costovertebral tenderness. Full range of motion. Female : Normal external genitalia. Skin: Warm, dry with normal turgor. Normal color with no rashes, no lesions, and no evidence of cellulitis. MS/ Extremity: Pulses equal, no cyanosis. Neurovascular intact. Full, normal range of motion. Neuro: Awake and alert, GCS 15, oriented to person, place, time, and situation. Cranial nerves II-XII grossly intact. Motor strength 5/5 in all extremities. Sensory grossly intact. Cerebellar exam normal. Normal gait. Psych: Awake, alert, with orientation to person, place and time. Behavior, mood, and affect are within normal limits. Vital Signs: 02:00 BP 134 / 82; Pulse 85; Resp 16; Temp 97.5; Pulse Ox 99% on R/A; Weight 69.85 kg (R); ak1 Height 5 ft. 3 in. (160.02 cm) (R); Pain 9/10; 02:00 Body Mass Index 27.28 (69.85 kg, 160.02 cm) ak1 MDM: 02:[address] [facility] 02:53 Data reviewed: vital signs, nurses notes. [facility] Administered Medications: No medications were administered Disposition: 02/26/18 02:56 Discharged to Home. Impression: Malaise and fatigue - hx of sickle cell disease. - Condition is Stable. - Discharge Instructions: Sickle Cell Anemia, Adult, Weakness, Weakness, [id number], Sickle Cell Anemia, Adult, [id number]. - Medication Reconciliation Form, Thank You Letter, Antibiotic Education, Prescription Opioid Use form. - Follow up: Adama Rod MD; When: 2 - 3 days; Reason: Recheck today's complaints, Continuance of care, Re-evaluation by your physician. - Problem is new. - Symptoms have improved. Signatures: Spenser Luis MD MD cha Krenek, Amber RN RN ak1 Corrections: (The following items were deleted from the chart) 03:03 02:56 02/26/2018 02:56 Discharged to Home. Impression: Malaise and fatigue - hx of ak1 sickle cell disease. Condition is Stable. Forms are Medication Reconciliation Form, Thank You Letter, Antibiotic Education, Prescription Opioid Use. Follow up: Adama Rod; When: 2 - 3 days; Reason: Recheck today's complaints, Continuance of care, Re-evaluation by your physician. Problem is new. Symptoms have improved. anupam
--- NOTE | 2018-02-26 02:57 | ER ---
Nurse's Notes [facility] Name: Brennon Berg Age: 37 yrs Sex: Female : 1980 Arrival Date: 02/26/2018 Time: 01:48 Bed 6 Private MD: Adama Rod E Diagnosis: Malaise and fatigue-hx of sickle cell disease Presentation: 02/26 01:56 Presenting complaint: Patient states: she began having pain after being brought to ER ak1 for legal blood draw. pt states that stress causes her pain. Transition of care: pt was brought to ER by DPS officer for legal blood draw and was released from custody to ER lobby to wait for sister to pick pt up. pt c/o the stress caused the her to begin having pain. Onset of symptoms was February 26, 2018. Risk Assessment: Do you want to hurt yourself or someone else? Patient reports no desire to harm self or others. Initial Sepsis Screen: Does the patient meet any 2 criteria? No. Patient's initial sepsis screen is negative. Does the patient have a suspected source of infection? No. Patient's initial sepsis screen is negative. Care prior to arrival: None. 01:56 Method Of Arrival: Law Enforcement: DPS officer ak1 01:56 Acuity: TEMI 4 ak1 Triage Assessment: 02:00 General: Appears in no apparent distress. Behavior is calm, cooperative, Smells of ak1 alcohol. Pain: Complains of pain in all over body aches. EENT: No signs and/or symptoms were reported regarding the EENT system. 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 Speech is slurred, pt smells of ETOH. Cardiovascular: No deficits noted. Respiratory: No deficits noted. GI: No signs and/or symptoms were reported involving the gastrointestinal system. : No signs and/or symptoms were reported regarding the genitourinary system. Derm: No signs and/or symptoms reported regarding the dermatologic system. Musculoskeletal: Range of motion: limited in left wrist ROM limited due to previous stroke. Historical: - Allergies: 02:00 Fentanyl; ak1 02:00 Morphine; ak1 02:00 Reglan; ak1 02:00 Stadol; ak1 02:00 Toradol; ak1 02:00 tramadol; ak1 02:00 Trazodone; ak1 02:00 Ultram; ak1 02:00 Zofran; ak1 - Home Meds: 02:00 gabapentin 300 mg Oral cap 1 cap 3 times per day [Active]; Hydrea 500 mg Oral cap TID ak1 [Active]; hydrocodone-acetaminophen 2.5-500 mg Oral tab 1 tab every 4 hours [Active]; hydroxyurea 500 mg Oral cap 1 cap every 3 days [Active]; Keppra 250 mg Oral tab 1 tabs 2 times per day [Active]; Promethazine Oral [Active]; Xanax 2 mg Oral tab 3 times per day [Active]; - PMHx: 02:00 aplastic anemia; CVA; Myocardial infarction; Seizures; Sickle Cell; ak1 - PSHx: 02:00 Hysterectomy; Cholecystectomy; splenectomy; ; ak1 - Immunization history:: Adult Immunizations unknown. - Social history:: Smoking status: unknown. - Ebola Screening: : No symptoms or risks identified at this time. Screenin:02 Abuse screen: Denies threats or abuse. Denies injuries from another. Nutritional ak1 screening: No deficits noted. Tuberculosis screening: No symptoms or risk factors identified. Fall Risk None identified. Assessment: 03:03 Reassessment: Patient appears in no apparent distress at this time. No changes from ak1 previously documented assessment. taxi called to take pt home. Vital Signs: 02:00 BP 134 / 82; Pulse 85; Resp 16; Temp 97.5; Pulse Ox 99% on R/A; Weight 69.85 kg (R); ak1 Height 5 ft. 3 in. (160.02 cm) (R); Pain 9/10; 02:00 Body Mass Index 27.28 (69.85 kg, 160.02 cm) ak1 ED Course: 01:48 Patient arrived in ED. ds1 01:59 Triage completed. ak1 02:00 Arm band placed on Patient placed in waiting room, Patient notified of wait time. ak1 02:02 Patient has correct armband on for positive identification. ak1 02:03 Adama Rod MD is Private Physician. ds1 02:46 Spenser Luis MD is Attending Physician. anupam 02:54 Adama Rod MD is Referral Physician. [facility] 03:03 No provider procedures requiring assistance completed. Patient did not have IV access ak1 during this emergency room visit. Administered Medications: No medications were administered Outcome: 02:56 Discharge ordered by . [facility] 03:03 Discharged to home ambulatory. ak1 03:03 Condition: stable 03:03 Discharge instructions given to patient, Instructed on discharge instructions, follow up and referral plans. Demonstrated understanding of instructions, follow-up care. 03:03 Patient left the ED. ak1 Signatures: Spenser Luis MD MD cha Sanford, Demi ds1 Keiko Tony, RN RN ak1
[2018-02-26 03:07] VITALS: BP 134/82; TEMP 97.5; O2SAT 99
== END 2018-02-26 03:03 | disposition home or self-care (01) ==
LOC: ER 01:47
DX: R53.83 Other fatigue (principal); D57.1 Sickle-cell disease without crisis; R53.1 Weakness; D61.9 Aplastic anemia, unspecified; I25.2 Old myocardial infarction; G40.909 Epilepsy, unspecified, not intractable, without status epilepticus; Z88.5 Allergy status to narcotic agent; Z88.6 Allergy status to analgesic agent; Z88.8 Allergy status to other drugs, medicaments and biological substances; Z86.73 Personal history of transient ischemic attack (TIA), and cerebral infarction without residual deficits
CPT/HCPCS: 99281

== ENCOUNTER 2018-04-15 16:51 | Observation (INO) | payer OTHER ==
--- OUTSIDE RECORDS SUMMARY | 2018-04-15 16:55 | XMS REPORT | Clinical Summary ---
:1980 Author Organization [facility] Address [address] [place] [address] Phone Care Team Providers Name Role Phone Unavailable Primary Care Provider Unavailable Allergies Active Allergy Reactions Severity Noted Date Comments Tramadol Other (See Comments) High 02/21/2014 Seizure Morphine Other (See Comments) 11/27/2013 seizures Butorphanol Tartrate Other (See Comments) 11/27/2013 seizures Rpg-Mg-Nll-Ebmwicgz-Gzbrd-Ljdo 10/01/2014 seizure Ketorolac Other (See Comments) 11/27/2013 seizures Trazodone 10/01/2014 seizure Ondansetron Hcl (Pf) Other (See Comments) 11/27/2013 seizures Current Medications Prescription Sig. Disp. Refills Start Date End Date Status folic acid (FOLVITE) Take 1 mg by Active 1 MG tablet mouth daily. hydroxyurea (DROXIA) Take 500 mg by Active 500 mg capsule mouth 3 (three) times daily . ALPRAZolam (XANAX) 2 Take 2 mg by Active MG tablet mouth 3 (three) times daily as needed for Sleep . promethazine Take 25 mg by Active (PHENERGAN) 25 MG mouth every 6 tablet (six) hours as needed for Nausea. HYDROcodone-acetamin Take 2 tablets Active ophen (NORCO 10-325) by mouth every 4 10-325 mg per (four) hours as tabletIndications: needed for Pain. Pain mirtazapine Take 45 mg by Active (REMERON) 45 MG mouth nightly. tabletIndications: major depressive disorder levETIRAcetam Take 250 mg by Active (KEPPRA) 250 MG mouth 2 (two) tabletIndications: times daily. Partial Epilepsy Treatment Adjunct triamcinolone Apply topically Active (KENALOG) 0.1 % 3 (three) times lotionIndications: daily. Contact Dermatitis, skin rash metoprolol Take 25 mg by 01/29/2018 Discontinued (LOPRESSOR) 25 MG mouth 3 (three) tablet times daily. oxymorphone (OPANA Take 40 mg by 01/29/2018 Discontinued ER) 40 MG 12 hr mouth every 12 tablet (twelve) hours. amLODIPine (NORVASC) Take 5 mg by 01/29/2018 Discontinued 5 MG tablet mouth daily. Hospital, Clinic, or Other Ordered Dose Route Frequency Start Date End Date Status Facility Administered Medication promethazine (PHENERGAN) 25 MG IV Once 05/04/2017 Active injection 25 mg heparin (PF) injection 500 Units Cath Once 05/03/2017 05/03/2017 Ended syringe 500 Units sodium chloride 0.9% (NS) IV Once 05/04/2017 05/04/2017 Ended infusion diphenhydrAMINE (BENADRYL) 25 MG IV Once 05/04/2017 05/04/2017 Ended injection 25 mg acetaminophen (TYLENOL) 650 MG Oral Once 05/04/2017 05/04/2017 Ended tablet 650 mg heparin (PF) injection 500 Units Cath PRN 05/04/2017 05/04/2017 Ended syringe 500 Units heparin (PF) injection 500 Units Cath Once 09/25/2017 09/25/2017 Ended syringe 500 Units sodium chloride 0.9% (NS) IV Once 09/26/2017 09/26/2017 Ended infusion heparin (PF) injection 500 Units Cath Once PRN 09/26/2017 09/26/2017 Ended syringe 500 Units diphenhydrAMINE (BENADRYL) 25 MG IV Once 09/26/2017 09/26/2017 Ended injection 25 mg acetaminophen (TYLENOL) 650 MG Oral Once 09/26/2017 09/26/2017 Ended tablet 650 mg promethazine (PHENERGAN) 25 MG IV Once 09/26/2017 09/26/2017 Ended injection 25 mg Active Problems Problem Noted [...] Busch, 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);Total Mary, Deisy body pain MD Neal Sood Shamoon, MD 11/22/2017 Procedure Pass 11/22/2017 Surgery Manny Fuentes [...] Traci Obregon, RN cell transfusions (Primary Dx) after 04/14/2017 Family History Medical History Relation Name Comments [...] 11/22/2017 1:14 PM CDT chest pain after 04/14/2017 Results EKG-SCANNED (02/11/2018 10:10 AM)Only the most [...] Cells 1+ few Sickle Cells 1+ few Doty-John Day Bodies 1+ few Artifact Present Platelet Conc Adequate Specimen Performing Laboratory [place] [address] Narrative Received comment: User comments: Slide comments: [...] Performing Laboratory Blood - [place] Venous Line [address] [address] CBC with platelet count + automated diff (02/08/2018 5:03 AM)Only the most recent of36 resultswithin the time period is included. Specimen Performing Laboratory Blood - Central Venous Line Narrative The following orders were created for panel order CBC with platelet count + automated diff. Procedure Abnormality Status --------- ------ CBC with platelet count ...[[id number]]AbnormalFinal result Please view results for these tests [...] Performing Laboratory Blood - [place] Venous Line [address] [address] Manual Differential (02/06/2018 5:58 AM)Only the most [...] Performing Laboratory Blood - Central Venous Line [address] [address] TRANSFUSION SERVICE REPORT - SCAN (02/05/2018 6:00 PM)Only the most recent of24 resultswithin the time period is included.Prepare Leuko-Red RBC (2017 11:54 PM)Only the most recent of8 resultswithin the time period is included. Component Value Ref Range Unit ABO O Pos UNIT NUMBER [id number] Status WORK IN PROGRESS Blood Bank Product RED BLOOD CELLS PRODUCT CODE [id number] Unit ABO O Pos UNIT NUMBER [id number] Status WORK IN PROGRESS Blood Bank Product RED BLOOD CELLS PRODUCT CODE O5409R85 CROSSMATCH COMPATIBLE Unit ABO O Pos UNIT NUMBER [id number] Status TRANSFUSED Blood Bank Product RED BLOOD CELLS PRODUCT CODE [id number] CROSSMATCH COMPATIBLE Unit ABO O Pos UNIT NUMBER [id number] Status TRANSFUSED Blood Bank Product RED BLOOD CELLS PRODUCT CODE [id number] Specimen Performing Laboratory Other [employer] [place] Transfuse Leuko-Red RBC (02/03/2018 10:59 PM)Only the most recent of16 resultswithin the time period is included.Type and screen, automated (2017 8:30 AM)Only the most recent of8 resultswithin the time period is included. Component Value Ref Range ABO/RH AUTOMATED (BEAKER) O POSITIVE Ab Scrn POSITIVEComment: Antibody identified within 7 days Specimen Performing Laboratory Blood [address] [address] Urinalysis w/Microscopic (02/01/2018 7:45 PM)Only the most recent of5 resultswithin the time period is included. Component Value Ref Range Color, UA Yellow Clarity, UA Hazy Specific [place], UA 1.009 1.001 - 1.035 pH, UA [...] Specimen Performing Laboratory Urine - Urine, Voided [address] [address] Antibody identification (01/30/2018 3:13 PM)Only the most recent of7 resultswithin the [...] - 1.7 % Specimen Performing Laboratory Blood [address] [address] Lactate dehydrogenase (LDH) (01/29/2018 4:28 PM)Only the most recent of2 resultswithin the time period is included. Component Value Ref Range LDH 989 (H) 125 - 220 U/L Specimen Performing Laboratory Blood [address] [address] Ferritin (01/29/2018 4:28 PM)Only the most recent of2 resultswithin the time period is included. Component Value Ref Range Ferritin [address] (H) 5 - 275 ng/mL Specimen Performing Laboratory Blood [address] [address] CARDIAC CATH REPORT - SCAN (11/27/2017 8:52 PM)Calcium, Ionized (11/25/2017 4: 38 AM)Only the most recent of14 resultswithin the time period is included. Component Value Ref Range Calcium, Ion 1.10 (L) 1.12 - 1.27 mmol/L pH, Blood 7.30 Specimen Performing Laboratory Blood [address] [address] Phosphorus (11/25/2017 4:38 AM)Only the most recent of15 resultswithin the time period is included. Component Value Ref Range Phosphorus 4.7 2.3 - 4.7 mg/dL Specimen Performing Laboratory Blood [address] [address] Magnesium (11/25/2017 4:38 AM)Only the most recent of16 resultswithin the time period is included. Component Value Ref Range Magnesium 1.4 (L) 1.6 - 2.6 mg/dL Specimen Performing Laboratory Blood [address] [address] Uric acid (11/24/2017 5:36 AM) Component Value Ref Range Uric Acid 4.8 2.6 - 7.2 mg/dL Specimen Performing Laboratory Blood [address] [address] Creatine Kinase (CK) (11/24/2017 5:36 AM) Component Value Ref Range Total CK 8 (L) 29 - 200 U/L Specimen Performing Laboratory Blood [address] [address] Potassium (11/23/2017 5:35 PM)Only the most recent of3 resultswithin the time period is included. Component Value Ref Range Potassium 5.5 (H) 3.5 - 5.1 meq/L Specimen Performing Laboratory Blood - Central Venous Line [address] [address] Narrative Call if K > 5.4 to renal [phone] Electrolytes (11/22/2017 12:30 PM) Component Value Ref Range Sodium 137 136 - 145 meq/L Potassium 5.4 (H) 3.5 - 5.1 meq/L Chloride 100 98 - 107 meq/L CO2 30 (H) 22 - 29 meq/L Specimen Performing Laboratory Blood - Portacath [address] [address] Narrative Call results [phone] B-type Natriuretic Factor (BNP) (11/21/2017 4:56 AM)Only the most recent of3 resultswithin the time period is included. Component Value Ref Range BNP 120 (H) 0 - 100 pg/mL Specimen Performing Laboratory Blood [address] [address] Blood gas, venous (11/20/2017 6:44 AM) Component [...] FIO2 21.0 % Specimen Performing Laboratory Blood [address] [address] CBC (Hemogram only) (11/19/2017 6:25 AM) Component [...] Performing Laboratory Blood - Central Venous Line [address] [address] Hepatic function panel (11/17/2017 4:51 AM)Only the [...] Laboratory Blood - Central Venous Line [facility] [address] [address] Prepare RBC (11/16/2017 11:55 PM) Component Value Ref Range Unit ABO O Pos UNIT NUMBER [id number] Status TRANSFUSED Blood Bank Product RED BLOOD CELLS PRODUCT CODE [id number] Unit ABO O Pos UNIT NUMBER [id number] Status TRANSFUSED Blood Bank Product RED BLOOD CELLS PRODUCT CODE [id number] CROSSMATCH COMPATIBLE CROSSMATCH COMPATIBLE Specimen Performing Laboratory [...] MD Report Verified Date/Time:11/16/2017 10:47:19 Reading Location: [facility] Radiology Reading Room Procedure Note Interface, [...] Report Verified Date/Time: 11/16/2017 10:47:19 Reading Location: [facility] Radiology Reading Room mandible less than [...] MD Report Verified Date/Time:11/16/2017 12:28:43 Reading Location: [facility] Radiology Reading Room Procedure Note Interface, [...] Report Verified Date/Time: 11/16/2017 12:28:43 Reading Location: [facility] Radiology Reading Room Anti-Mitochondrial Ab, reflex to titer (11/16/2017 9:35 AM) Component Value Ref Range Scan Result Specimen Performing Laboratory Blood - Central Venous Line [facility] [place] [id number] [place] [address] Actin (Smooth Muscle) Antibody, IgG (11/16/2017 9:35 [...] - Central Venous Line [facility] [address] [place] [address] Narrative Performing Lab [facility] [address] [place] [address] Irwin Marquez MD, PhD AMARILYS Titer & Pattern (11/16/2017 9:35 AM) Component Value Ref Range AMARILYS Titer 1:160 AMARILYS Pattern Multiple nuclear dots pattern Specimen Performing Laboratory Blood - [facility] Venous Line [address] [address] Hepatitis panel, acute (11/16/2017 9:35 AM) Component Value Ref Range Hep A IgM Nonreactive Nonreactive Hep B C IgM Nonreactive Nonreactive Hepatitis C Ab Nonreactive Nonreactive hepatitis B Surface Ag Nonreactive Nonreactive Specimen Performing Laboratory Blood - Central Venous Line [address] [address] Anti-Nuclear Antibody (AMARILYS) (11/16/2017 9:35 AM) Component Value Ref Range AMARILYS Positive (A) Negative Specimen Performing Laboratory Blood - Central Venous Line [address] [address] XR abdomen / KUB 1 view (11/15/2017 [...] MD Report Verified Date/Time:11/15/2017 12:43:04 Reading Location: [facility] Radiology Reading Room Procedure Note Interface, [...] Report Verified Date/Time: 11/15/2017 12:43:04 Reading Location: [facility] Radiology Reading Room Endovaginal (11/15/2017 7:00 AM) Specimen Performing Laboratory RIS Narrative FINAL REPORT TECHNIQUE: Transvaginal grayscale [...] MD Report Verified Date/Time:11/15/2017 09:03:15 Reading Location: [facility] [id number] Ultrasound Reading Room Procedure Note Interface, External [...] Report Verified Date/Time: 11/15/2017 09:03:15 Reading Location: [address] Ultrasound Reading Room Lipase (11/15/2017 5:30 AM) Component Value Ref Range Lipase 95 (H) 8 - 78 U/L Specimen Performing Laboratory Blood - Central Venous Line [address] [address] Urine culture (11/14/2017 6:19 AM)Only the most recent of2 resultswithin the time period is included. Component Value Ref Range Result >100,000 col/mL skin valentino Specimen Performing Laboratory Urine - Urine, Clean Catch [address] [address] Blood culture (11/13/2017 11:20 PM)Only the most recent of2 resultswithin the time period is included. Component Value Ref Range Result No growth in 5 days Specimen Performing Laboratory Blood - Portacath [address] [address] ECHOCARDIOGRAM REPORT - SCAN (11/10/2017 1:20 PM)Comprehensive [...] Performing Laboratory Blood [place] [address] 2D Echo W/Doppler(CW/PW/Color) (11/09/2017 6:46 PM) Component Value Ref Range Ejection Fraction Specimen Performing Laboratory [facility] ECHO HEART[facility] MKCKESSON CPACS Narrative Transthoracic Echocardiography Report (TTE) Demographics Patient NameSMITH, ALEESHIADate of Study11/09/2017 DIANA Gender Female Visit [id number] Race Black [id number] Number Date of 1980 [facility] Physician Age 37 year(s) Shank Cementer Hand Lou Price RDCS [facility] Read Marlo [...] Study 11/09/2017 DIANA Gender Female Visit Number [id number] Race Black Room Number [id number] Number Date of 1980 Referring Neal Lezama Physician Age 37 year(s) Shank Cementer Hand Lou Price RDCS Interpreting [facility] Needs to [...] MD Report Verified Date/Time:11/08/2017 20:41:24 Reading Location: [address] Reading Room Procedure Note Interface, External [...] Report Verified Date/Time: 11/08/2017 20:41:24 Reading Location: [address] Reading Room Sodium, random urine (11/08/2017 5:33 AM) Component Value Ref Range Sodium Urine 65 meq/L Specimen Performing Laboratory Urine - Urine, Voided [facility] [address] Narrative Reference Range: No Normals Protein, random urine (11/08/2017 5:33 AM) Component Value Ref Range Protein, Urine 24 (H) 0 - 14 mg/dL Specimen Performing Laboratory Urine - Urine, Voided [address] [address] Creatinine, random urine (11/08/2017 5:33 AM) Component Value Ref Range Creatinine, Ur 46.0 mg/dL Specimen Performing Laboratory Urine - Urine, Voided [address] [address] Narrative Reference Range: No Normals Eosinophil smear (11/08/2017 5:33 AM) Component Value Ref Range Eosinophil Smear No EOS seen No EOS seen Specimen Performing Laboratory Urine - Urine, Voided [address] [address] [address] abdomen/pelvis without iv contrast (11/08/2017 3:01 [...] MD Report Verified Date/Time:11/08/2017 08:29:54 Reading Location: [facility] Diagnostic Imaging Reading Room - [place] [address] Procedure Note Interface, External Ris In - [...] Report Verified Date/Time: 11/08/2017 08:29:54 Reading Location: [facility] Diagnostic Imaging Reading Room - [place] [address] abdomen complete (11/07/2017 7:27 PM)Only the most recent of2 resultswithin the time period is included. Specimen Performing Laboratory [employer] Narrative FINAL REPORT Abdominal ultrasound Clinical History:Abdominal [...] MD Report Verified Date/Time:11/07/2017 19:58:17 Reading Location: [facility] [id number] Consult Reading Room Procedure Note [...] Status post splenectomy. 3. Hepatomegaly. Signed: Tomy Gurllon MD Report Verified Date/Time: 11/07/2017 19:58:17 Reading Location: [facility] B1 C013W Consult Reading Room Lactic acid, venous, whole blood (11/07/2017 3:32 PM) Component Value Ref Range Lactate, Venous 0.9Comment: Specimen slightly hemolyzed 0.5 - 2.2 mmol/L Specimen Performing Laboratory Blood [place] [address] Narrative Effective 12/22/2015: Units/Reference Range Change New: 0.5-2.2 mmol/LPrevious: 5-20 mg/dL ECG 12 lead (06/05/2017 8:52 PM) Specimen Performing Laboratory [facility] Narrative Ventricular Rate 80 BPM Atrial Rate 80 BPM P-R Interval 180 ms QRS Duration 76 ms Q-T Interval 394 ms QTC Calculation(Bazett) 454 ms [place] 49 degrees [place] 20 degrees [place] 34 degrees Normal sinus rhythm Normal ECG [...] 394 ms QTC Calculation(Bazett) 454 ms [place] 49 degrees [place] 20 degrees [place] 34 degrees Normal sinus rhythm Normal ECG When compared with ECG of 15-SEP-2016 00:53, No significant change was found Confirmed by Wade GARCIA BASANT ([id number]) on 06/07/2017 1:13:44 PM Troponin I (06/05/2017 8:40 PM) Component Value Ref Range Troponin I <0.01 0.00 - 0.03 ng/mL Specimen Performing Laboratory Blood - Central Venous Line [address] [address] Narrative Troponin I (TnI) levels must be [...] Performing Laboratory Blood - Central Venous Line [address] [address] Narrative CK-MB Reference Range: <6.7Normal 6.7-10.0Borderline >10.0 Abnormal after 04/14/2017
--- OUTSIDE RECORDS SUMMARY | 2018-04-15 16:55 | XMS REPORT | Continuity of Care Document ---
:1980 Author Organization Interface Problems Problem Status Onset Classification Date Comments Source Date Reported SICKLE CELL CRISIS Active 09/08/[address] Final: 09/13/2014 [facility] Aplastic anemia Resolved Problem 09/13/2014 [facility] CVA - Resolved Problem 09/13/2014 [facility] Cerebrovascular [facility] accident Center Sickle cell anemia Resolved Problem 09/13/2014 [facility] TIA Resolved Problem 09/13/2014 [facility] HB-SS DISEASE W Active [facility] Medications Medication Details Route Status Patient Ordering Order Source Instructions Provider Date 12 HR Oxymorphone 30 mg=1 tab, Active [facility] Hydrochloride 30 PO, Q12H, 0 2014 Medical MG Extended Refill(s) Center Release Tablet [Opana] Lovenox 40 mg, 0.4 mL, No Longer [facility] Route: SUB-Q, Active 2014 Medical Drug form: INJ, Center [id number], Dosing Weight 70.591, kg, Start date: 09/10/14 19:00:00, Duration: 30 day, Stop date: 10/09/14 19:00:00Notes: (Same as: Lovenox) Promethazine 12.5 mg, 0.5 No Longer [facility] mL, Route: Active 2014 Medical IVPB, Drug Center form: INJ, Q4H, Dosing Weight 70.591, kg, PRN Nausea & Vomiting, Start date: 09/10/14 17:52:00, Duration: 30 day, Stop date: 10/10/14 17:51:00Notes: Do not give IV push. (Same as: Phenergan) Hydromorphone 15 mg, 30 mL, No Longer [facility] Route: IV, Active 2014 Medical Initial Loading Center Dose: 0.4mg, BOILER TESTER Dose: 0.2 mg, BOILER TESTER Lockout: 10 minutes, Continuous Basal Rate: 0 mg, 4 Hour Limit (In MG): 3, Drug Form: INJ, Continuous, Start date: 09/10/14 11:00:00, Duration: 30 day, Stop date: 10/10/14 10:...Notes: (Same as: Dilaudid) conc=0.5 mg/ml Hydromorphone BOILER TESTER Dose: ;Delay: ;Basal: Naloxone 0.04 mg, 0.1 [...] Drug 2015 Medical MG/ML Topical form: CRM, [place] Cream [Benadryl] Start date: 09/09/14 3:43:00, Stop [...] Source type Reported morphine Assertion Drug Active [facility] Stadol Assertion Drug Active [facility] Toradol Assertion Drug Active [facility] traMADol Assertion Drug Active [facility] Zofran Assertion Drug Active [facility] Immunizations Immunization Date Given Site Status Last Updated Comments Source Results Order Name Results Value Reference Date Interpretation Comments Source Range CHEM PANEL LDH 507 unit/L 98 - 192 09/11 [facility] ELECTROLYTE AGAP 10.8 meq/L 10.0 - 09/11 [facility] S 20.0 [facility] ELECTROLYTE Calcium Lvl 8.4 mg/dL 8.5 - 10.5 09/11 [facility] ELECTROLYTE CO2 27 meq/L 24 - 32 09/11 [facility] ELECTROLYTE Chloride Lvl 108 meq/L 95 - 109 09/11 [facility] ELECTROLYTE eGFR 130 09/11 3Result Comment: The eGFR is calculated using the CKD-EPI formula. In most young, healthy individuals the eGFR will be > 90 mL/min/1.73m2. The eGFR declines with age. An eGFR of 60-89 may be normal in [facility] mL/min/1.73 some populations, particularly the elderly, for whom the CKD-EPI formula has not been extensively validated. Use of the eGFR is not recommended in the following populations: [place] [address] Center Individuals with unstable creatinine concentrations, including [...] BMI. ELECTROLYTE BUN 4 mg/dL - 09/11 [facility] ELECTROLYTE Glucose Lvl 82 mg/dL 70 - 99 09/11 6Interpretive Data: Adult reference range values reflect the clinical guidelines [facility] [employer] [place] [employer]. [facility] ELECTROLYTE Sodium Lvl 142 meq/L 135 - 145 09/11 [facility] ELECTROLYTE Creatinine 0.7 mg/dL 0.5 - 1.4 09/11 [facility] ELECTROLYTE Potassium 3.8 meq/L 3.5 - 5.1 09/11 [facility] HEMATOLOGY Retic Auto 16.5 % 0.5 - 1.5 09/11 [facility] HEMATOLOGY RDW 25.5 % 11.5 - 09/11 [facility] 14. [facility] HEMATOLOGY MPV 8.6 fL 7.4 - 10.4 09/11 [facility] HEMATOLOGY Platelet 213 K/CMM 133 - 450 09/11 [place] /2014 [facility] HEMATOLOGY Hct 19.8 % 36.0 - 09/11 [place] 48.0 /2014 [facility] HEMATOLOGY Hgb 6.7 g/dL 12.0 - 09/11 9Result [place] 16.0 /2014 Comment: [facility] Result(s) called to Lexi Hendrix at 09/11/2014 03:23 by ORDAZ. Read back OK. HEMATOLOGY MCV 97.9 fL 80.0 - 09/11 [place] 98.0 /2014 [facility] HEMATOLOGY MCHC 34.0 g/dL 32.0 - 09/11 [place] 36.0 /2014 [facility] HEMATOLOGY MCH 33.3 pg 27.0 - 09/11 [place] 31.0 /2014 [facility] HEMATOLOGY WBC X 10x3 14.1 K/CMM 3.7 - 10.4 09/11 /2014 [facility] HEMATOLOGY RBC X 10x6 2.02 M/CMM 4.20 - 09/11 [place] 5.40 /2014 [facility] BLOOD BANK Antibody Positive 1 09/10 1Result Comment: 09/10/2014 09:24 [id number] [facility] RESULTS Scrn "Significant Findings of Positive Antibody Screen called to Magan Stinson at 0920 by SI. Read Back OK" Medical (09/10/14 8:01 AM) [place] BLOOD BANK ABO/Rh O POS 09/10 [place] RESULTS [facility] BLOOD BANK Path MEGHAN This 09/10 [facility] RESULTS patient Medical a positive [place] Direct Antiglobuli n Test (MEGHAN) with IgG [...] and concur with the resident's interpretat ion.CPT: 69159-EB BLOOD BANK Path AB Current 09/10 [facility] RESULTS testing Medical shows the Center [...] and concur with the resident's interpretat ion.CPT: 19552-BA BLOOD BANK HX Antigen Le(a) neg 09/10 RESULTS /2014 [facility] BLOOD BANK HX Antigen Jk(b) pos 09/10 RESULTS /2014 [facility] BLOOD BANK HX Antigen K neg 09/10 RESULTS /2014 [facility] BLOOD BANK HX Antigen Jk(a) pos 09/10 RESULTS /2014 [facility] BLOOD BANK HX Antigen Fy(b) neg 09/10 RESULTS /2014 Medical Center BLOOD BANK HX Antigen Fy(a) pos 09/10 [place] RESULTS /2014 [facility] BLOOD BANK HX Antigen C pos 09/10 [place] RESULTS /2014 [facility] BLOOD BANK HX Antigen E neg 09/10 [place] RESULTS /2014 [facility] Center BLOOD BANK HX Antigen Cw neg 09/10 [place] RESULTS /2014 [facility] Center BLOOD BANK HX Antigen M pos 09/10 [place] RESULTS /2014 [facility] Center BLOOD BANK HX Antigen s pos 09/10 [place] RESULTS /2014 [facility] Center BLOOD BANK HX Antigen c neg 09/10 [place] RESULTS /2014 [facility] BLOOD BANK HX Antigen N neg 09/10 [place] RESULTS /2014 [facility] Center BLOOD BANK HX Antigen P1 pos 09/10 [place] RESULTS /2014 [facility] BLOOD BANK HX Antigen S neg 09/10 [place] RESULTS /2014 [facility] BLOOD BANK HX Antigen Le(b) neg 09/10 [place] RESULTS /2014 [facility] BLOOD BANK HISTORICAL Anti-S 09/10 [place] RESULTS AB [facility] BLOOD BANK HISTORICAL Anti-Bg(a) 09/10 [place] RESULTS AB [facility] Center BLOOD BANK HISTORICAL Anti-Cw 09/10 [place] RESULTS AB [facility] Center BLOOD BANK C3 Int Negative 09/10 [place] RESULTS /2014 Medical (09/10/14 8:01 AM) Center BLOOD BANK [place] Int See Note 09/10 2Result Comment: 09/10/2014 12:56 TIMARTI2 [place] non reactive with all cells tested. [facility] BLOOD BANK MEGHAN Gel Int Positive 09/10 [place] RESULTS [facility] (09/10/14 8:01 AM) Center BLOOD BANK AB Int Anti-E 09/10 [place] RESULTS [facility] BLOOD BANK AB Int Anti-c 09/10 [place] RESULTS /2014 [facility] HEMATOLOGY Hgb 6.3 g/dL 12.0 - 09/10 10Result [place] 16.0 2015 Comment: [facility] Critical Center Result(s) called to JB LONDONO at _09/10/2014 07:45 byMK_. Read back OK. CHEM PANEL LDH 496 unit/L 98 - 192 09/10 [place] /2014 [facility] ELECTROLYTE AGAP 11.8 meq/L 10.0 - 09/10 [place] S 20.0 /2015 [facility] ELECTROLYTE eGFR 137 09/10 4Result Comment: The eGFR is calculated using the CKD-EPI formula. In most young, healthy individuals the eGFR will be > 90 mL/min/1.73m2. The eGFR declines with age. An eGFR of 60-89 may be normal in [facility] mL/min/1.73 some populations, particularly the elderly, for [...] Lvl 8.3 mg/dL 8.5 - 10.5 09/10 [facility] ELECTROLYTE Chloride Lvl 113 meq/L 95 - 109 09/10 [facility] ELECTROLYTE Sodium Lvl 144 meq/L 135 - 145 09/10 [facility] ELECTROLYTE Glucose Lvl 81 mg/dL 70 - 99 09/10 7Interpretive Data: Adult reference range values reflect the clinical guidelines [facility] [employer] [place] [employer]. [facility] ELECTROLYTE BUN 4 mg/dL 7 - 22 09/10 [facility] ELECTROLYTE Creatinine 0.6 mg/dL 0.5 - 1.4 09/10 [facility] ELECTROLYTE CO2 23 meq/L 24 - 32 09/10 [facility] ELECTROLYTE Potassium 3.8 meq/L 3.5 - 5.1 09/10 [facility] HEMATOLOGY Hgb 6.2 g/dL 12.0 - 09/10 11Result [facility] 16.0 Comment: Medical Critical Center Result(s) called to Amy Fraga at 09/10/2014 06:07 by negrita. Read back OK. HEMATOLOGY WBC 15.9 K/CMM 3.7 - 10.4 09/10 [facility] HEMATOLOGY RBC 1.85 M/CMM 4.20 - 09/10 [facility] 5.40 /2014 [facility] HEMATOLOGY Hct 18.2 % 36.0 - 09/10 [facility] 48.0 [facility] HEMATOLOGY MCV 98.3 fL 80.0 - 09/10 [facility] 98.0 [facility] HEMATOLOGY RDW 25.4 % 11.5 - 09/10 [facility] 14.5 [facility] HEMATOLOGY Platelet 190 K/CMM 133 - 450 09/10 [facility] HEMATOLOGY MCH 33.6 pg 27.0 - 09/10 [facility] 31.0 [facility] HEMATOLOGY MCHC 34.2 g/dL 32.0 - 09/10 36.0 [facility] HEMATOLOGY MPV 8.5 fL 7.4 - 10.4 09/10 [facility] HEMATOLOGY Retic Auto 15.8 % 0.5 - 1.5 09/10 [facility] ELECTROLYTE AGAP 13.7 meq/L 10.0 - 09/09 [facility] S 20.0 [facility] ELECTROLYTE eGFR 96 09/09 5Result Comment: The eGFR is calculated using the CKD-EPI formula. In most young, healthy individuals the eGFR will be > 90 mL/min/1.73m2. The eGFR declines with age. An eGFR of 60-89 may be normal in [facility] mL/min/1.73 some populations, particularly the elderly, for whom the CKD-EPI formula has not been extensively validated. Use of the eGFR is not recommended in the following populations: [place] [address] Center Individuals with unstable creatinine concentrations, including [...] Lvl 9.1 mg/dL 8.5 - 10.5 09/09 [facility] ELECTROLYTE Potassium 3.7 meq/L 3.5 - 5.1 09/09 [facility] ELECTROLYTE Sodium Lvl 142 meq/L 135 - 145 09/09 [facility] ELECTROLYTE Glucose Lvl 106 mg/dL 70 - 99 09/09 8Interpretive Data: Adult reference range values reflect the clinical guidelines [facility] [employer] [place] [employer]. [facility] ELECTROLYTE Creatinine 0.9 mg/dL 0.5 - 1.4 09/09 [facility] ELECTROLYTE BUN 6 mg/dL 7 - 22 09/09 [facility] [place] [facility]2015 [facility] ELECTROLYTE CO2 26 meq/L 24 - 32 09/09 [facility] S /2014 [facility] ELECTROLYTE Chloride Lvl 106 meq/L 95 - 109 09/09 [facility] [place] [facility]2014 [facility] HEMATOLOGY Sickle Cell Slight 09/09 [facility]2014 [facility] HEMATOLOGY Schistocyte 1-3 per HPF None Seen 09/09 [facility] (09/09/14 2:13 AM) [place] HEMATOLOGY Tear Cell Slight 09/09 [facility]2014 [facility] HEMATOLOGY Target Cell Moderate None Seen 09/09 [facility] [place] (09/09/14 2:13 AM) HEMATOLOGY Polychrom Slight 09/[address] HEMATOLOGY Plt Morph Normal 09/09 [facility] (09/09/14 2:13 AM) [place] HEMATOLOGY Tot Cell Ct 100 09/[address] HEMATOLOGY Bands 0.0 % 0.0 - 11.0 09/[address] HEMATOLOGY Segs 49.0 % 45.0 - 09/09 [facility] 75.0 [facility] HEMATOLOGY Macrocyte 1+ None Seen 09/09 [facility] [place] (09/09/14 2:13 AM) HEMATOLOGY Anisocyte 1+ None Seen 09/09 [facility] [place] (09/09/14 2:13 AM) HEMATOLOGY NRBC 2 /100WB 09/[address] HEMATOLOGY Atypical 0.0 % <=0.0 % 09/09 [facility] Lymph [facility] HEMATOLOGY Eosinophils 3.0 % 0.0 - 4.0 09/[address] HEMATOLOGY Monocytes 14.0 % 2.0 - 12.0 09/[address] HEMATOLOGY Lymphocytes 34.0 % 20.0 - 09/09 [facility] 40.0 [facility] HEMATOLOGY Eosinophils 0.6 K/CMM 0.0 - 0.5 09/09 [facility]2014 [facility] HEMATOLOGY Monocytes # 2.7 K/CMM 0.0 - 0.8 09/[address] HEMATOLOGY Lymphocytes 6.5 K/CMM 1.0 - 5.5 09/09 [facility] /[address] [place] [address] HEMATOLOGY Segs-Bands # 9.3 K/CMM 1.5 - 8.1 09/[address] HEMATOLOGY Retic Auto 16.6 % 0.5 - 1.5 09/09 [facility] HEMATOLOGY MPV 8.3 fL 7.4 - 10.4 09/09 [facility] HEMATOLOGY RDW 25.8 % 11.5 - 09/09 14.5 [facility] HEMATOLOGY MCHC 34.3 g/dL 32.0 - 09/09 [place] 36.0 [facility] HEMATOLOGY Platelet 220 K/CMM 133 - 450 09/09 [facility] HEMATOLOGY MCV 99.8 fL 80.0 - 09/09 98.0 /2014 [facility] HEMATOLOGY Hct 22.7 % 36.0 - 09/09 48.0 [facility] HEMATOLOGY MCH 34.2 pg 27.0 - 09/09 31.0 [facility] HEMATOLOGY WBC 19.0 K/CMM 3.7 - 10.4 09/09 [facility] HEMATOLOGY RBC 2.28 M/CMM 4.20 - 09/09 [facility] 5.40 /2014 [facility] Vital Signs Vital Sign Value Date Comments Source Respitory Rate 18 09/12/2014 [facility] Systolic (mm Hg) 120 09/12/2014 [facility] Heart Rate 80 09/12/2014 [facility] Diastolic (mm Hg) 80 09/12/2014 [facility] Temperature Oral (F) 98.0 F 09/12/2014 [facility] Diastolic (mm Hg) 82 09/11/2014 [facility] Respitory Rate 18 09/11/2014 [facility] Systolic (mm Hg) 132 09/11/2014 [facility] Heart Rate 82 09/11/2014 [facility] Temperature Oral (F) 98.4 F 09/11/2014 [facility] Respitory Rate 16 09/11/2014 [facility] Heart Rate 86 09/11/2014 [facility] Systolic (mm Hg) 120 09/11/2014 [facility] Diastolic (mm Hg) 86 09/11/2014 [facility] Temperature Oral (F) 98.1 F 09/11/2014 [facility] Weight 70.591 09/10/2014 [facility] Weight 68.182 09/09/2014 [facility] BMI Calculated 26.63 09/09/2014 [facility] Height 160.02 cm 09/09/2014 [facility] Weight 70 09/09/2014 [facility] Height 160.02 cm 09/09/2014 [facility] BMI Calculated 27.34 09/09/2014 [facility] Encounters Location Location Encounter Encounter Reason Attending ADM DC Status Source Details Type Number For Provider Date Date Visit [facility] [id number] Josiane 09/09 09/12 [facility] Roly [place]on /2014 [facility] Procedures Procedure Code Date Perfomer Comments Source
--- OUTSIDE RECORDS SUMMARY | 2018-04-15 17:00 | XMS REPORT ---
:1980 [facility] [address] [place] [address] Dr. Iraheta [address] [place] [id number] Care Team Providers Name Role Phone YANA [...] Comments WHITE BLOOD CELL COUNT (BEAKER) (test lldo=888) 14.3 K/ L 3.5-10.5 RED BLOOD CELL COUNT (BEAKER) (test etbq=102) 2.54 M/ L 3.93-5.22 HEMOGLOBIN (BEAKER) (test bekl=240) 7.3 GM/DL 11.2-15.7 HEMATOCRIT (BEAKER) (test wzgw=156) 23.4 % 34.1-44.9 MEAN CORPUSCULAR VOLUME (BEAKER) (test lbxv=474) 92.1 fL 79.4-94.8 MEAN CORPUSCULAR HEMOGLOBIN (BEAKER) (test txkv=879) 28.7 pg 25.6-32.2 MEAN CORPUSCULAR HEMOGLOBIN CONC (BEAKER) (test zmst=509) 31.2 GM/DL 32.2- 35.5 RED CELL DISTRIBUTION WIDTH (BEAKER) (test biig=741) 21.4 % 11.7-14.4 PLATELET COUNT (BEAKER) (test opby=925) 239 K/CU MM 150-450 MEAN PLATELET VOLUME (BEAKER) (test mvnf=034) 11.0 fL 9.4-12.3 NUCLEATED RED BLOOD CELLS (BEAKER) (test veio=462) 4 /100 WBC 0-0 (CELLAVISION MANUAL DIFF)2018-02-08 12:02:00 Test Item Value Reference Range Comments NEUTROPHILS - REL (CELLAVISION)(BEAKER) (test 66 % luhu=6379) LYMPHOCYTES - REL (CELLAVISION)(BEAKER) (test 22 % yrum=0181) MONOCYTES - REL (CELLAVISION)(BEAKER) (test 8 % eyfd=6978) EOSINOPHILS - REL (CELLAVISION)(BEAKER) (test 3 % atzv=6664) NEUTROPHILS - ABS (CELLAVISION)(BEAKER) (test 9.44 K/ul 1.56-6.13 nvfg=3347) LYMPHOCYTES - ABS (CELLAVISION)(BEAKER) (test 3.15 K/ul 1.18-3.74 dwny=0730) MONOCYTES - ABS (CELLAVISION)(BEAKER) (test 1.14 K/uL 0.24-0.36 rqcr=1020) EOSINOPHILS - ABS (CELLAVISION)(BEAKER) (test 0.43 K/uL 0.04-0.36 wzzi=5219) TOTAL COUNTED (BEAKER) (test fmxw=8969) 100 MANUAL NRBC PER 100 CELLS (BEAKER) (test 5 /100 WBC 0-0 fpjm=6895) WBC MORPHOLOGY (BEAKER) (test edwa=869) Normal PLT MORPHOLOGY (BEAKER) (test rxir=454) Normal ANISOCYTOSIS (BEAKER) (test apsg=870) 2+ moderate MACROCYTES (BEAKER) (test ohpn=878) 1+ few TARGET CELLS (BEAKER) (test pigj=361) 1+ few SICKLE CELLS (BEAKER) (test cjjb=025) 1+ few MATTHEWS-JOLLY BODIES (BEAKER) (test ccaw=631) 1+ few ARTIFACT (CELLAVISION)(BEAKER) (test mssi=0976) Present PLATELET CONCENTRATION (CELLAVISION)(BEAKER) Adequate (test vntk=4639) Received comment: User comments: Slide comments:BASIC METABOLIC [id number] 06:09:00 Test Item Value Reference Range Comments SODIUM (BEAKER) (test 138 meq/L 136-145 ebtt=631) POTASSIUM (BEAKER) (test 5.9 meq/L 3.5-5.1 oniq=361) CHLORIDE (BEAKER) (test 102 meq/L 98-107 xnfq=237) CO2 (BEAKER) (test 30 meq/L 22-29 fjbb=776) BLOOD UREA NITROGEN 15 mg/dL 7-21 (BEAKER) (test ulsv=768) CREATININE (BEAKER) (test 0.68 mg/dL 0.57-1.25 bbdh=808) GLUCOSE RANDOM (BEAKER) 87 mg/dL 70-105 (test hesk=354) CALCIUM (BEAKER) (test 9.6 mg/dL 8.4-10.2 ruoe=427) EGFR (BEAKER) (test 117 mL/min/1.73 sq m ESTIMATED GFR IS NOT fxxz=8921) ACCURATE CREATININE CLEARANCE IN PREDICTING GLOMERULAR FILTRATION RATE. ESTIMATED GFR IS NOT APPLICABLE FOR DIALYSIS PATIENTS. (CELLAVISION MANUAL DIFF)2018-02-07 13:34:00 Test Item Value Reference Range Comments NEUTROPHILS - REL (CELLAVISION)(BEAKER) (test 68 % pxzh=7261) LYMPHOCYTES - REL (CELLAVISION)(BEAKER) (test 24 % dzpp=5254) MONOCYTES - REL (CELLAVISION)(BEAKER) (test 7 % lfsg=3147) EOSINOPHILS - REL (CELLAVISION)(BEAKER) (test 1 % dxnz=9111) NEUTROPHILS - ABS (CELLAVISION)(BEAKER) (test 9.66 K/ul 1.56-6.13 ycnr=8413) LYMPHOCYTES - ABS (CELLAVISION)(BEAKER) (test 3.41 K/ul 1.18-3.74 lmcc=3353) MONOCYTES - ABS (CELLAVISION)(BEAKER) (test 0.99 K/uL 0.24-0.36 curn=5723) EOSINOPHILS - ABS (CELLAVISION)(BEAKER) (test 0.14 K/uL 0.04-0.36 wobv=2163) TOTAL COUNTED (BEAKER) (test flbs=3339) 100 MANUAL NRBC PER 100 CELLS (BEAKER) (test 15 /100 WBC 0-0 jlnw=8197) WBC MORPHOLOGY (BEAKER) (test kbyw=066) Normal LARGE PLT(BEAKER) (test fgbn=2712) Present POLYCHROMATOPHILLIC RBCS(BEAKER) (test pawv=446) 2+ moderate HYPOCHROMIA (BEAKER) (test azaj=628) 1+ few TARGET CELLS (BEAKER) (test ljwm=257) 2+ moderate SICKLE CELLS (BEAKER) (test kiim=557) 1+ few MATTHEWS-JOLLY BODIES (BEAKER) (test uwdb=019) 1+ few ARTIFACT (CELLAVISION)(BEAKER) (test fuvq=5335) Present PLATELET CONCENTRATION (CELLAVISION)(BEAKER) Adequate (test dbgp=8839) Received comment: User comments: Slide comments:CBC W/PLT COUNT & AUTO [id number] 13:33:00 Test Item Value Reference Range Comments WHITE BLOOD CELL COUNT (BEAKER) (test dtvo=588) 14.2 K/ L 3.5-10.5 RED BLOOD CELL COUNT (BEAKER) (test wwuj=263) 2.68 M/ L 3.93-5.22 HEMOGLOBIN (BEAKER) (test offc=815) 7.7 GM/DL 11.2-15.7 HEMATOCRIT (BEAKER) (test vgxx=824) 24.5 % 34.1-44.9 MEAN CORPUSCULAR VOLUME (BEAKER) (test wkyc=644) 91.4 fL 79.4-94.8 MEAN CORPUSCULAR HEMOGLOBIN (BEAKER) (test 28.7 pg 25.6-32.2 iszu=267) MEAN CORPUSCULAR HEMOGLOBIN CONC (BEAKER) (test 31.4 GM/DL 32.2-35.5 qizc=642) RED CELL DISTRIBUTION WIDTH (BEAKER) (test 21.2 % 11.7-14.4 uhds=584) PLATELET COUNT (BEAKER) (test xojq=521) 257 K/CU MM 150-450 MEAN PLATELET VOLUME (BEAKER) (test edyy=259) 11.4 fL 9.4-12.3 NUCLEATED RED BLOOD CELLS (BEAKER) (test 6 /100 WBC 0-0 hcgq=361) BASIC METABOLIC [id number] 07:19:00 Test Item Value Reference Range Comments SODIUM (BEAKER) (test 138 meq/L 136-145 wdbz=288) POTASSIUM (BEAKER) (test 5.3 meq/L 3.5-5.1 mrwy=379) CHLORIDE (BEAKER) (test 98 meq/L 98-107 qyzh=051) CO2 (BEAKER) (test 34 meq/L 22-29 pbhi=483) BLOOD UREA NITROGEN 16 mg/dL 7-21 (BEAKER) (test epzr=335) CREATININE (BEAKER) (test 0.66 mg/dL 0.57-1.25 ljwy=513) GLUCOSE RANDOM (BEAKER) 90 mg/dL 70-105 (test fbrb=856) CALCIUM (BEAKER) (test 9.8 mg/dL 8.4-10.2 dmoy=766) EGFR (BEAKER) (test 121 mL/min/1.73 sq m ESTIMATED GFR IS NOT jevk=2961) ACCURATE CREATININE CLEARANCE IN PREDICTING GLOMERULAR FILTRATION RATE. ESTIMATED GFR IS NOT APPLICABLE FOR DIALYSIS PATIENTS. CBC W/PLT COUNT & AUTO [id number] 14:36:00 Test Item Value Reference Range Comments WHITE BLOOD CELL COUNT (BEAKER) (test uvmd=584) 12.9 K/ L 3.5-10.5 RED BLOOD CELL COUNT (BEAKER) (test ayhz=471) 2.54 M/ L 3.93-5.22 HEMOGLOBIN (BEAKER) (test qemb=540) 7.4 GM/DL 11.2-15.7 HEMATOCRIT (BEAKER) (test bbso=077) 22.9 % 34.1-44.9 MEAN CORPUSCULAR VOLUME (BEAKER) (test zrrd=024) 90.2 fL 79.4-94.8 MEAN CORPUSCULAR HEMOGLOBIN (BEAKER) (test 29.1 pg 25.6-32.2 wsgy=026) MEAN CORPUSCULAR HEMOGLOBIN CONC (BEAKER) (test 32.3 GM/DL 32.2-35.5 qblu=749) RED CELL DISTRIBUTION WIDTH (BEAKER) (test 21.2 % 11.7-14.4 sukz=607) PLATELET COUNT (BEAKER) (test rzcn=434) 251 K/CU MM 150-450 MEAN PLATELET VOLUME (BEAKER) (test kbjj=718) 10.8 fL 9.4-12.3 NUCLEATED RED BLOOD CELLS (BEAKER) (test 7 /100 WBC 0-0 uhuv=166) (MANUAL DIFFERENTIAL)2018-02-06 14:36:00 Test Item Value Reference Range Comments NEUTROPHILS - REL (DIFF) (BEAKER) (test 64 % duij=1324) LYMPHOCYTES - REL (DIFF) (BEAKER) (test 22 % hyry=1916) MONOCYTES - REL (DIFF) (BEAKER) (test vkij=3692) 8 % EOSINOPHILS - REL (DIFF) (BEAKER) (test 6 % jzti=1315) BASOPHILS - REL (DIFF) (BEAKER) (test gmsk=1569) 0 % NEUTROPHILS - ABS (DIFF) (BEAKER) (test 8.26 K/ L 1.80-8.00 gvkn=4770) LYMPHOCYTES - ABS (DIFF) (BEAKER) (test 2.84 K/ L 1.48-4.50 bdbt=8344) MONOCYTES - ABS (DIFF) (BEAKER) (test vitz=3219) 1.03 K/ L 0.00-1.30 EOSINOPHILS - ABS (DIFF) (BEAKER) (test 0.77 K/ L 0.00-0.50 jbvi=7537) BASOPHILS - ABS (DIFF) (BEAKER) (test xhnv=7948) 0.00 K/ L 0.00-0.20 TOTAL COUNTED (BEAKER) (test izdw=1230) 100 MANUAL NRBC PER 100 CELLS (BEAKER) (test 8 /100 WBC 0-0 dyaf=6781) WBC MORPHOLOGY (BEAKER) (test efwy=947) Normal PLT MORPHOLOGY (BEAKER) (test fkjd=479) Normal ANISOCYTOSIS (BEAKER) (test fvuc=470) 2+ moderate SICKLE CELLS (BEAKER) (test esmm=793) 2+ moderate BASIC METABOLIC [id number] 06:59:00 Test Item Value Reference Range Comments SODIUM (BEAKER) (test 139 meq/L 136-145 mgef=438) POTASSIUM (BEAKER) (test 4.9 meq/L 3.5-5.1 iofn=785) CHLORIDE (BEAKER) (test 100 meq/L 98-107 khwk=297) CO2 (BEAKER) (test 34 meq/L 22-29 pzht=500) BLOOD UREA NITROGEN 18 mg/dL 7-21 (BEAKER) (test ivoy=121) CREATININE (BEAKER) (test 0.70 mg/dL 0.57-1.25 hunj=402) GLUCOSE RANDOM (BEAKER) 102 mg/dL 70-105 (test qndw=703) CALCIUM (BEAKER) (test 9.8 mg/dL 8.4-10.2 plix=552) EGFR (BEAKER) (test 114 mL/min/1.73 sq m ESTIMATED GFR IS NOT ndhp=5681) ACCURATE CREATININE CLEARANCE IN PREDICTING GLOMERULAR FILTRATION RATE. ESTIMATED GFR IS NOT APPLICABLE FOR DIALYSIS PATIENTS. CBC W/PLT COUNT & AUTO [id number] 12:27:00 Test Item Value Reference Range Comments WHITE BLOOD CELL COUNT (BEAKER) (test cqfn=596) 14.2 K/ L 3.5-10.5 RED BLOOD CELL COUNT (BEAKER) (test seyj=043) 2.55 M/ L 3.93-5.22 HEMOGLOBIN (BEAKER) (test zsow=644) 7.2 GM/DL 11.2-15.7 HEMATOCRIT (BEAKER) (test rdjp=270) 22.9 % 34.1-44.9 MEAN CORPUSCULAR VOLUME (BEAKER) (test qtwy=408) 89.8 fL 79.4-94.8 MEAN CORPUSCULAR HEMOGLOBIN (BEAKER) (test 28.2 pg 25.6-32.2 ryoi=395) MEAN CORPUSCULAR HEMOGLOBIN CONC (BEAKER) (test 31.4 GM/DL 32.2-35.5 jlrg=652) RED CELL DISTRIBUTION WIDTH (BEAKER) (test 20.7 % 11.7-14.4 toej=105) PLATELET COUNT (BEAKER) (test pcou=457) 261 K/CU MM 150-450 MEAN PLATELET VOLUME (BEAKER) (test ferg=521) 10.7 fL 9.4-12.3 NUCLEATED RED BLOOD CELLS (BEAKER) (test 5 /100 WBC 0-0 ainv=699) (CELLAVISION MANUAL DIFF)2018-02-05 12:27:00 Test Item Value Reference Range Comments NEUTROPHILS - REL (CELLAVISION)(BEAKER) (test 67 % fcgm=2492) LYMPHOCYTES - REL (CELLAVISION)(BEAKER) (test 17 % taur=5251) MONOCYTES - REL (CELLAVISION)(BEAKER) (test 6 % ibki=0430) EOSINOPHILS - REL (CELLAVISION)(BEAKER) (test 4 % sltn=4081) PROMYELOCYTES - REL (CELLAVSION)(BEAKER) (test 5 % 0-0 gwww=3212) ATYPICAL LYMPHOCYTES - REL (CELLAVISION)(BEAKER) 1 % 0-0 (test vftw=2196) NEUTROPHILS - ABS (CELLAVISION)(BEAKER) (test 9.51 K/ul 1.56-6.13 gscd=6794) LYMPHOCYTES - ABS (CELLAVISION)(BEAKER) (test 2.41 K/ul 1.18-3.74 bukp=5721) MONOCYTES - ABS (CELLAVISION)(BEAKER) (test 0.85 K/uL 0.24-0.36 slld=3841) EOSINOPHILS - ABS (CELLAVISION)(BEAKER) (test 0.57 K/uL 0.04-0.36 ipnl=8051) PROMYELOCYTES - ABS (CELLAVISION)(BEAKER) (test 0.71 K/uL 0.00-0.00 ugej=0829) ATYPICAL LYMPHOCYTES - ABS (CELLAVISION)(BEAKER) 0.14 K/uL 0.00-0.00 (test lisj=0450) TOTAL COUNTED (BEAKER) (test iztc=6077) 100 MANUAL NRBC PER 100 CELLS (BEAKER) (test 9 /100 WBC 0-0 kejp=0943) WBC MORPHOLOGY (BEAKER) (test wxyy=117) Normal LARGE PLT(BEAKER) (test hfkx=0862) Present POLYCHROMATOPHILLIC RBCS(BEAKER) (test fedb=847) 2+ moderate HYPOCHROMIA (BEAKER) (test dykv=729) 1+ few TARGET CELLS (BEAKER) (test faun=198) 2+ moderate SICKLE CELLS (BEAKER) (test eehg=107) 2+ moderate ARTIFACT (CELLAVISION)(BEAKER) (test kqmp=4415) Present PLATELET CONCENTRATION (CELLAVISION)(BEAKER) Adequate (test ldwk=6979) Received comment: User comments: Slide comments:BASIC METABOLIC [id number] 07:44:00 Test Item Value Reference Range Comments SODIUM (BEAKER) (test 139 meq/L 136-145 wjca=132) POTASSIUM (BEAKER) (test 4.7 meq/L 3.5-5.1 hyof=720) CHLORIDE (BEAKER) (test 100 meq/L 98-107 cgte=225) CO2 (BEAKER) (test 31 meq/L 22-29 tgsm=181) BLOOD UREA NITROGEN 14 mg/dL 7-21 (BEAKER) (test qlpd=031) CREATININE (BEAKER) (test 0.69 mg/dL 0.57-1.25 qxdc=861) GLUCOSE RANDOM (BEAKER) 92 mg/dL 70-105 (test axbd=673) CALCIUM (BEAKER) (test 9.8 mg/dL 8.4-10.2 qdvb=337) EGFR (BEAKER) (test 115 mL/min/1.73 sq m ESTIMATED GFR IS NOT zvbc=0609) ACCURATE CREATININE CLEARANCE IN PREDICTING GLOMERULAR FILTRATION RATE. ESTIMATED GFR IS NOT APPLICABLE FOR DIALYSIS PATIENTS. CBC W/PLT COUNT & AUTO [id number] 13:29:00 Test Item Value Reference Range Comments WHITE BLOOD CELL COUNT (BEAKER) (test aprr=455) 17.1 K/ L 3.5-10.5 RED BLOOD CELL COUNT (BEAKER) (test pkdx=213) 2.68 M/ L 3.93-5.22 HEMOGLOBIN (BEAKER) (test gwyb=612) 7.6 GM/DL 11.2-15.7 HEMATOCRIT (BEAKER) (test cecz=377) 23.3 % 34.1-44.9 MEAN CORPUSCULAR VOLUME (BEAKER) (test sxrw=900) 86.9 fL 79.4-94.8 MEAN CORPUSCULAR HEMOGLOBIN (BEAKER) (test 28.4 pg 25.6-32.2 osxp=122) MEAN CORPUSCULAR HEMOGLOBIN CONC (BEAKER) (test 32.6 GM/DL 32.2-35.5 imte=384) RED CELL DISTRIBUTION WIDTH (BEAKER) (test 20.0 % 11.7-14.4 ltyx=986) PLATELET COUNT (BEAKER) (test wrrt=564) 252 K/CU MM 150-450 MEAN PLATELET VOLUME (BEAKER) (test dmdt=351) 10.9 fL 9.4-12.3 NUCLEATED RED BLOOD CELLS (BEAKER) (test 4 /100 WBC 0-0 gnco=751) (CELLAVISION MANUAL DIFF)2018-02-04 13:29:00 Test Item Value Reference Range Comments NEUTROPHILS - REL (CELLAVISION)(BEAKER) (test 61 % pmfn=5445) LYMPHOCYTES - REL (CELLAVISION)(BEAKER) (test 29 % qhna=4371) MONOCYTES - REL (CELLAVISION)(BEAKER) (test 7 % xrav=5391) EOSINOPHILS - REL (CELLAVISION)(BEAKER) (test 1 % bvcy=0761) BANDS - REL (CELLAVISION)(BEAKER) (test 2 % 0-10 hubh=2011) NEUTROPHILS - ABS (CELLAVISION)(BEAKER) (test 10.43 K/ul 1.56-6.13 oqju=2183) LYMPHOCYTES - ABS (CELLAVISION)(BEAKER) (test 4.96 K/ul 1.18-3.74 lihr=9749) MONOCYTES - ABS (CELLAVISION)(BEAKER) (test 1.20 K/uL 0.24-0.36 cpwk=2068) EOSINOPHILS - ABS (CELLAVISION)(BEAKER) (test 0.17 K/uL 0.04-0.36 fvva=7949) BANDS - ABS (CELLAVISION)(BEAKER) (test 0.34 K/uL 0.00-0.80 ixqo=1367) TOTAL COUNTED (BEAKER) (test ghqs=1127) 100 MANUAL NRBC PER 100 CELLS (BEAKER) (test 3 /100 WBC 0-0 jivp=3132) SMUDGE CELLS (BEAKER) (test uhgn=3650) Present GIANT PLATELETS (BEAKER) (test lsat=616) Present POLYCHROMATOPHILLIC RBCS(BEAKER) (test posj=638) 3+ many ANISOCYTOSIS (BEAKER) (test rzhk=461) 2+ moderate MICROCYTES (BEAKER) (test cxnd=824) 1+ few POIKILOCYTES (BEAKER) (test juup=834) 2+ moderate TARGET CELLS (BEAKER) (test zgom=568) 2+ moderate SICKLE CELLS (BEAKER) (test nnkr=445) 2+ moderate ARTIFACT (CELLAVISION)(BEAKER) (test otva=5265) Present HELMET CELLS (CELLAVISION)(BEAKER) (test 1+ few bklq=0635) PLATELET CONCENTRATION (CELLAVISION)(BEAKER) Adequate (test ohmi=2444) Received comment: User comments: Slide comments:BASIC METABOLIC [id number] 05:38:00 Test Item Value Reference Range Comments SODIUM (BEAKER) (test 140 meq/L 136-145 wmub=875) POTASSIUM (BEAKER) (test 4.6 meq/L 3.5-5.1 pqdl=351) CHLORIDE (BEAKER) (test 104 meq/L 98-107 udvd=378) CO2 (BEAKER) (test 28 meq/L 22-29 suzj=749) BLOOD UREA NITROGEN 18 mg/dL 7-21 (BEAKER) (test cioe=732) CREATININE (BEAKER) (test 0.66 mg/dL 0.57-1.25 jinz=471) GLUCOSE RANDOM (BEAKER) 100 mg/dL 70-105 (test srpn=324) CALCIUM (BEAKER) (test 9.5 mg/dL 8.4-10.2 hkky=551) EGFR (BEAKER) (test 121 mL/min/1.73 sq m ESTIMATED GFR IS NOT nqpm=2103) ACCURATE CREATININE CLEARANCE IN PREDICTING GLOMERULAR FILTRATION RATE. ESTIMATED GFR IS NOT APPLICABLE FOR DIALYSIS PATIENTS. CBC W/PLT COUNT & AUTO [id number] 14:02:00 Test Item Value Reference Range Comments WHITE BLOOD CELL COUNT (BEAKER) (test tqge=378) 20.8 K/ L 3.5-10.5 RED BLOOD CELL COUNT (BEAKER) (test cdyl=194) 1.97 M/ L 3.93-5.22 HEMOGLOBIN (BEAKER) (test tenc=697) 5.9 GM/DL 11.2-15.7 HEMATOCRIT (BEAKER) (test rlcq=578) 17.6 % 34.1-44.9 MEAN CORPUSCULAR VOLUME (BEAKER) (test lmli=145) 89.3 fL 79.4-94.8 MEAN CORPUSCULAR HEMOGLOBIN (BEAKER) (test 29.9 pg 25.6-32.2 ujfq=750) MEAN CORPUSCULAR HEMOGLOBIN CONC (BEAKER) (test 33.5 GM/DL 32.2-35.5 gyti=024) RED CELL DISTRIBUTION WIDTH (BEAKER) (test 21.8 % 11.7-14.4 kerw=820) PLATELET COUNT (BEAKER) (test ghfu=694) 290 K/CU MM 150-450 MEAN PLATELET VOLUME (BEAKER) (test roui=216) 10.7 fL 9.4-12.3 NUCLEATED RED BLOOD CELLS (BEAKER) (test 5 /100 WBC 0-0 kclq=895) NEUTROPHILS RELATIVE PERCENT (BEAKER) (test 66 % jhky=667) LYMPHOCYTES RELATIVE PERCENT (BEAKER) (test 23 % uetj=264) MONOCYTES RELATIVE PERCENT (BEAKER) (test 10 % euhc=219) EOSINOPHILS RELATIVE PERCENT (BEAKER) (test 1 % rqpv=974) BASOPHILS RELATIVE PERCENT (BEAKER) (test 0 % snzb=560) NEUTROPHILS ABSOLUTE COUNT (BEAKER) (test 13.73 K/ L 1.56-6.13 zyrr=075) LYMPHOCYTES ABSOLUTE COUNT (BEAKER) (test 4.72 K/ L 1.18-3.74 wdmo=907) MONOCYTES ABSOLUTE COUNT (BEAKER) (test 2.06 K/ L 0.24-0.36 wurm=467) EOSINOPHILS ABSOLUTE COUNT (BEAKER) (test 0.20 K/ L 0.04-0.36 ktor=386) BASOPHILS ABSOLUTE COUNT (BEAKER) (test 0.03 K/ L 0.01-0.08 gfuy=017) IMMATURE GRANULOCYTES-RELATIVE PERCENT (BEAKER) 1 % 0-1 (test twmy=2919) (CELLAVISION MANUAL DIFF)2018-02-03 14:02:00 Test Item Value Reference Range Comments TOTAL COUNTED (BEAKER) (test fiob=4126) WBC MORPHOLOGY (BEAKER) (test efad=994) Normal PLT MORPHOLOGY (BEAKER) (test nxnl=151) Normal POLYCHROMATOPHILLIC RBCS(BEAKER) (test iyyk=967) 2+ moderate ANISOCYTOSIS (BEAKER) (test mmay=765) 2+ moderate TARGET CELLS (BEAKER) (test kymi=278) 2+ moderate SICKLE CELLS (BEAKER) (test cqay=650) 2+ moderate BASIC METABOLIC [id number] 07:22:00 Test Item Value Reference Range Comments SODIUM (BEAKER) (test 140 meq/L 136-145 ipue=237) POTASSIUM (BEAKER) (test 4.9 meq/L 3.5-5.1 hidk=640) CHLORIDE (BEAKER) (test 105 meq/L 98-107 wsnl=503) CO2 (BEAKER) (test 29 meq/L 22-29 szok=807) BLOOD UREA NITROGEN 20 mg/dL 7-21 (BEAKER) (test iiih=739) CREATININE (BEAKER) (test 0.72 mg/dL 0.57-1.25 rchc=787) GLUCOSE RANDOM (BEAKER) 100 mg/dL 70-105 (test uvcw=654) CALCIUM (BEAKER) (test 9.4 mg/dL 8.4-10.2 ugzi=529) EGFR (BEAKER) (test 110 mL/min/1.73 sq m ESTIMATED GFR IS NOT mmks=7757) ACCURATE CREATININE CLEARANCE IN PREDICTING GLOMERULAR FILTRATION RATE. ESTIMATED GFR IS NOT APPLICABLE FOR DIALYSIS PATIENTS. Specimen slightly ictericCBC W/PLT COUNT & AUTO [id number] 06:46 :00 Test Item Value Reference Range Comments WHITE BLOOD CELL COUNT (BEAKER) (test qgym=762) 17.0 K/ L 3.5-10.5 RED BLOOD CELL COUNT (BEAKER) (test tozj=087) 2.18 M/ L 3.93-5.22 HEMOGLOBIN (BEAKER) (test aeox=137) 6.4 GM/DL 11.2-15.7 HEMATOCRIT (BEAKER) (test nkou=713) 20.3 % 34.1-44.9 MEAN CORPUSCULAR VOLUME (BEAKER) (test bdlf=365) 93.1 fL 79.4-94.8 MEAN CORPUSCULAR HEMOGLOBIN (BEAKER) (test 29.4 pg 25.6-32.2 ibpn=184) MEAN CORPUSCULAR HEMOGLOBIN CONC (BEAKER) (test 31.5 GM/DL 32.2-35.5 mxlq=203) RED CELL DISTRIBUTION WIDTH (BEAKER) (test 24.0 % 11.7-14.4 odvd=202) PLATELET COUNT (BEAKER) (test ehfy=469) 274 K/CU MM 150-450 MEAN PLATELET VOLUME (BEAKER) (test aiwz=446) 10.9 fL 9.4-12.3 NUCLEATED RED BLOOD CELLS (BEAKER) (test 13 /100 WBC 0-0 fgjg=726) (CELLAVISION MANUAL DIFF)2018-02-02 06:46:00 Test Item Value Reference Range Comments NEUTROPHILS - REL (CELLAVISION)(BEAKER) (test 72 % azcl=1647) LYMPHOCYTES - REL (CELLAVISION)(BEAKER) (test 20 % zjew=9092) MONOCYTES - REL (CELLAVISION)(BEAKER) (test 6 % luvy=4846) EOSINOPHILS - REL (CELLAVISION)(BEAKER) (test 1 % xedu=0268) BANDS - REL (CELLAVISION)(BEAKER) (test 1 % 0-10 tdeq=9350) NEUTROPHILS - ABS (CELLAVISION)(BEAKER) (test 12.24 K/ul 1.56-6.13 sgsv=1207) LYMPHOCYTES - ABS (CELLAVISION)(BEAKER) (test 3.40 K/ul 1.18-3.74 fimw=6431) MONOCYTES - ABS (CELLAVISION)(BEAKER) (test 1.02 K/uL 0.24-0.36 tfqj=0263) EOSINOPHILS - ABS (CELLAVISION)(BEAKER) (test 0.17 K/uL 0.04-0.36 parr=3514) BANDS - ABS (CELLAVISION)(BEAKER) (test 0.17 K/uL 0.00-0.80 xofb=3027) TOTAL COUNTED (BEAKER) (test twxr=6801) 100 MANUAL NRBC PER 100 CELLS (BEAKER) (test 30 /100 WBC 0-0 cvwb=4055) WBC MORPHOLOGY (BEAKER) (test wfxs=874) Normal PLT MORPHOLOGY (BEAKER) (test kabo=968) Normal POLYCHROMATOPHILLIC RBCS(BEAKER) (test nbya=859) 3+ many ANISOCYTOSIS (BEAKER) (test hrqi=872) 2+ moderate MACROCYTES (BEAKER) (test ldyi=542) 2+ moderate TARGET CELLS (BEAKER) (test lcnf=167) 1+ few SICKLE CELLS (BEAKER) (test emgd=242) 1+ few ARTIFACT (CELLAVISION)(BEAKER) (test nxpx=1634) Present PLATELET CONCENTRATION (CELLAVISION)(BEAKER) Adequate (test otpy=7313) Received comment: User comments: Slide comments:BASIC METABOLIC [id number] 06:15:00 Test Item Value Reference Range Comments SODIUM (BEAKER) (test 139 meq/L 136-145 oqcw=768) POTASSIUM (BEAKER) (test 4.7 meq/L 3.5-5.1 myvx=536) CHLORIDE (BEAKER) (test 105 meq/L 98-107 yrii=529) CO2 (BEAKER) (test 26 meq/L 22-29 djld=329) BLOOD UREA NITROGEN 10 mg/dL 7-21 (BEAKER) (test zpcp=405) CREATININE (BEAKER) (test 0.67 mg/dL 0.57-1.25 mygq=990) GLUCOSE RANDOM (BEAKER) 91 mg/dL 70-105 (test ylga=579) CALCIUM (BEAKER) (test 9.3 mg/dL 8.4-10.2 bzzo=518) EGFR (BEAKER) (test 119 mL/min/1.73 sq m ESTIMATED GFR IS NOT qmyh=2627) ACCURATE CREATININE CLEARANCE IN PREDICTING GLOMERULAR FILTRATION RATE. ESTIMATED GFR IS NOT APPLICABLE FOR DIALYSIS PATIENTS. URINALYSIS W/ [id number] 20:17:00 Test Item Value Reference Range Comments COLOR (BEAKER) (test ckcm=137) Yellow CLARITY (BEAKER) (test tmwa=145) Hazy SPECIFIC GRAVITY UA (BEAKER) (test llsr=091) 1.009 1.001-1.035 PH UA (BEAKER) (test jtzn=858) 5.5 5.0-8.0 PROTEIN UA (BEAKER) (test hiuc=077) 20 mg/dL Negative GLUCOSE UA (BEAKER) (test apfu=626) Negative Negative KETONES UA (BEAKER) (test ebup=232) Negative Negative BILIRUBIN UA (BEAKER) (test bpbj=898) Negative Negative BLOOD UA (BEAKER) (test mked=762) Small Negative NITRITE UA (BEAKER) (test jdqo=580) Negative Negative LEUKOCYTE ESTERASE UA (BEAKER) (test iqkx=450) Small Negative UROBILINOGEN UA (BEAKER) (test hkhf=493) 0.2 mg/dL 0.2-1.0 RBC UA (BEAKER) (test gmgw=061) 1 /HPF WBC UA (BEAKER) (test rcxs=531) 4 /HPF BACTERIA (BEAKER) (test cgqi=981) Few MUCUS (BEAKER) (test sqwx=3149) Occasional SQUAMOUS EPITHELIAL (BEAKER) (test rdak=760) 8 /HPF SOURCE(BEAKER) (test rmpr=1997) Urine, Voided CBC W/PLT COUNT & AUTO [id number] 11:18:00 Test Item Value Reference Range Comments WHITE BLOOD CELL COUNT (BEAKER) (test ceyv=382) 16.9 K/ L 3.5-10.5 RED BLOOD CELL COUNT (BEAKER) (test lexp=290) 2.15 M/ L 3.93-5.22 HEMOGLOBIN (BEAKER) (test ywav=339) 6.5 GM/DL 11.2-15.7 HEMATOCRIT (BEAKER) (test oqql=046) 20.6 % 34.1-44.9 MEAN CORPUSCULAR VOLUME (BEAKER) (test dmfx=306) 95.8 fL 79.4-94.8 MEAN CORPUSCULAR HEMOGLOBIN (BEAKER) (test 30.2 pg 25.6-32.2 zneq=376) MEAN CORPUSCULAR HEMOGLOBIN CONC (BEAKER) (test 31.6 GM/DL 32.2-35.5 hkng=009) RED CELL DISTRIBUTION WIDTH (BEAKER) (test 25.6 % 11.7-14.4 ayty=704) PLATELET COUNT (BEAKER) (test pfbm=796) 280 K/CU MM 150-450 MEAN PLATELET VOLUME (BEAKER) (test sptb=864) 10.7 fL 9.4-12.3 NUCLEATED RED BLOOD CELLS (BEAKER) (test 27 /100 WBC 0-0 icfs=636) (CELLAVISION MANUAL DIFF)2018-02-01 11:18:00 Test Item Value Reference Range Comments NEUTROPHILS - REL (CELLAVISION)(BEAKER) (test 61 % acvg=9399) LYMPHOCYTES - REL (CELLAVISION)(BEAKER) (test 27 % mtcr=2080) MONOCYTES - REL (CELLAVISION)(BEAKER) (test 8 % meax=4190) EOSINOPHILS - REL (CELLAVISION)(BEAKER) (test 4 % pyil=6900) NEUTROPHILS - ABS (CELLAVISION)(BEAKER) (test 10.31 K/ul 1.56-6.13 pfbs=1974) LYMPHOCYTES - ABS (CELLAVISION)(BEAKER) (test 4.56 K/ul 1.18-3.74 yfhm=1172) MONOCYTES - ABS (CELLAVISION)(BEAKER) (test 1.35 K/uL 0.24-0.36 ubqz=0462) EOSINOPHILS - ABS (CELLAVISION)(BEAKER) (test 0.68 K/uL 0.04-0.36 vlib=5023) TOTAL COUNTED (BEAKER) (test tsvi=3640) 100 MANUAL NRBC PER 100 CELLS (BEAKER) (test 28 /100 WBC 0-0 owmy=1000) WBC MORPHOLOGY (BEAKER) (test rwfv=004) Normal PLT MORPHOLOGY (BEAKER) (test hiuf=249) Normal POLYCHROMATOPHILLIC RBCS(BEAKER) (test ywyq=709) 2+ moderate ANISOCYTOSIS (BEAKER) (test xpqj=585) 2+ moderate TARGET CELLS (BEAKER) (test silp=255) 2+ moderate SICKLE CELLS (BEAKER) (test ijqm=995) 1+ few ARTIFACT (CELLAVISION)(BEAKER) (test dqjl=3832) Present PLATELET CONCENTRATION (CELLAVISION)(BEAKER) Adequate (test yrwu=9333) Received comment: User comments: Slide comments:BASIC METABOLIC [id number] 06:15:00 Test Item Value Reference Range Comments SODIUM (BEAKER) (test 141 meq/L 136-145 qolh=546) POTASSIUM (BEAKER) (test 4.2 meq/L 3.5-5.1 focy=960) CHLORIDE (BEAKER) (test 108 meq/L 98-107 fyzy=410) CO2 (BEAKER) (test 25 meq/L 22-29 otkp=069) BLOOD UREA NITROGEN 11 mg/dL 7-21 (BEAKER) (test chin=962) CREATININE (BEAKER) (test 0.73 mg/dL 0.57-1.25 pcpd=276) GLUCOSE RANDOM (BEAKER) 93 mg/dL 70-105 (test sfqz=117) CALCIUM (BEAKER) (test 9.2 mg/dL 8.4-10.2 coys=724) EGFR (BEAKER) (test 108 mL/min/1.73 sq m ESTIMATED GFR IS NOT morn=7110) ACCURATE CREATININE CLEARANCE IN PREDICTING GLOMERULAR FILTRATION RATE. ESTIMATED GFR IS NOT APPLICABLE FOR DIALYSIS PATIENTS. CBC W/PLT COUNT & AUTO [id number] 15:02:00 Test Item Value Reference Range Comments WHITE BLOOD CELL COUNT (BEAKER) (test cxem=662) 18.0 K/ L 3.5-10.5 RED BLOOD CELL COUNT (BEAKER) (test tgqg=251) 2.31 M/ L 3.93-5.22 HEMOGLOBIN (BEAKER) (test awlh=439) 7.0 GM/DL 11.2-15.7 HEMATOCRIT (BEAKER) (test webe=654) 22.4 % 34.1-44.9 MEAN CORPUSCULAR VOLUME (BEAKER) (test icpy=004) 97.0 fL 79.4-94.8 MEAN CORPUSCULAR HEMOGLOBIN (BEAKER) (test 30.3 pg 25.6-32.2 qxdr=430) MEAN CORPUSCULAR HEMOGLOBIN CONC (BEAKER) (test 31.3 GM/DL 32.2-35.5 ipzp=044) RED CELL DISTRIBUTION WIDTH (BEAKER) (test 27.9 % 11.7-14.4 bqgm=438) PLATELET COUNT (BEAKER) (test bglk=125) 337 K/CU MM 150-450 MEAN PLATELET VOLUME (BEAKER) (test jmff=656) 10.2 fL 9.4-12.3 NUCLEATED RED BLOOD CELLS (BEAKER) (test 63 /100 WBC 0-0 lypz=998) NEUTROPHILS RELATIVE PERCENT (BEAKER) (test 45 % hjcb=113) LYMPHOCYTES RELATIVE PERCENT (BEAKER) (test 35 % kill=346) MONOCYTES RELATIVE PERCENT (BEAKER) (test 16 % ryhv=146) EOSINOPHILS RELATIVE PERCENT (BEAKER) (test 2 % hzam=136) BASOPHILS RELATIVE PERCENT (BEAKER) (test 0 % ybbn=483) NEUTROPHILS ABSOLUTE COUNT (BEAKER) (test 8.10 K/ L 1.56-6.13 cbti=665) LYMPHOCYTES ABSOLUTE COUNT (BEAKER) (test 6.24 K/ L 1.18-3.74 iqgg=561) MONOCYTES ABSOLUTE COUNT (BEAKER) (test 2.96 K/ L 0.24-0.36 ydxx=326) EOSINOPHILS ABSOLUTE COUNT (BEAKER) (test 0.38 K/ L 0.04-0.36 yptk=137) BASOPHILS ABSOLUTE COUNT (BEAKER) (test 0.06 K/ L 0.01-0.08 ggop=703) IMMATURE GRANULOCYTES-RELATIVE PERCENT (BEAKER) 2 % 0-1 (test bmfj=7561) (CELLAVISION MANUAL DIFF)2018-01-30 15:02:00 Test Item Value Reference Range Comments TOTAL COUNTED (BEAKER) (test hlnv=2583) WBC MORPHOLOGY (BEAKER) (test lfen=919) Normal PLT MORPHOLOGY (BEAKER) (test ostx=882) Normal POLYCHROMATOPHILLIC RBCS(BEAKER) (test qxug=441) 2+ moderate ANISOCYTOSIS (BEAKER) (test zxcu=745) 2+ moderate TARGET CELLS (BEAKER) (test xqdb=424) 2+ moderate SICKLE CELLS (BEAKER) (test cczr=109) 1+ few BASIC METABOLIC [id number] 09:27:00 Test Item Value Reference Range Comments SODIUM (BEAKER) (test 141 meq/L 136-145 cgqr=685) POTASSIUM (BEAKER) (test 4.0 meq/L 3.5-5.1 avif=570) CHLORIDE (BEAKER) (test 108 meq/L 98-107 fcsx=533) CO2 (BEAKER) (test 24 meq/L 22-29 pymq=957) BLOOD UREA NITROGEN 12 mg/dL 7-21 (BEAKER) (test pydb=832) CREATININE (BEAKER) (test 0.80 mg/dL 0.57-1.25 hrid=823) GLUCOSE RANDOM (BEAKER) 95 mg/dL 70-105 (test lded=591) CALCIUM (BEAKER) (test 9.5 mg/dL 8.4-10.2 pkyq=442) EGFR (BEAKER) (test 97 mL/min/1.73 sq m ESTIMATED GFR IS NOT wscq=1004) ACCURATE CREATININE CLEARANCE IN PREDICTING GLOMERULAR FILTRATION RATE. ESTIMATED GFR IS NOT APPLICABLE FOR DIALYSIS PATIENTS. [id number] 17:59:00 Test Item Value Reference Range Comments FERRITIN (BEAKER) (test bxqp=868) 85448 ng/mL 5-275 CBC W/PLT COUNT & AUTO [id number] 17:20:00 Test Item Value Reference Range Comments WHITE BLOOD CELL COUNT (BEAKER) (test bkwg=468) 19.9 K/ L 3.5-10.5 RED BLOOD CELL COUNT (BEAKER) (test xioo=287) 1.53 M/ L 3.93-5.22 HEMOGLOBIN (BEAKER) (test lrao=216) 5.0 GM/DL 11.2-15.7 HEMATOCRIT (BEAKER) (test upmk=465) 16.0 % 34.1-44.9 MEAN CORPUSCULAR VOLUME (BEAKER) (test dobe=845) 104.6 fL 79.4-94.8 MEAN CORPUSCULAR HEMOGLOBIN (BEAKER) (test 32.7 pg 25.6-32.2 epcq=514) MEAN CORPUSCULAR HEMOGLOBIN CONC (BEAKER) (test 31.3 GM/DL 32.2-35.5 etyq=307) RED CELL DISTRIBUTION WIDTH (BEAKER) (test 33.7 % 11.7-14.4 iodk=207) PLATELET COUNT (BEAKER) (test lszj=361) 364 K/CU MM 150-450 MEAN PLATELET VOLUME (BEAKER) (test yohd=637) 10.4 fL 9.4-12.3 NUCLEATED RED BLOOD CELLS (BEAKER) (test 62 /100 WBC 0-0 wdai=560) RETICULOCYTE [id number] 17:20:00 Test Item Value Reference Range Comments RETICULOCYTE COUNT PCT (BEAKER) (test aywn=840) > % 0.5-1.7 (CELLAVISION MANUAL DIFF)2018-01-29 17:20:00 Test Item Value Reference Range Comments TOTAL COUNTED (BEAKER) (test pgli=2732) RBC MORPHOLOGY (BEAKER) (test zbmx=681) Normal WBC MORPHOLOGY (BEAKER) (test jwuo=719) Normal PLT MORPHOLOGY (BEAKER) (test lhcj=211) Normal LACTATE DEHYDROGENASE (LDH)2018-01-29 17:04:00 Test Item Value Reference Range Comments LACTATE DEHYDROGENASE (BEAKER) (test wytx=732) 989 U/L 125-220 BASIC METABOLIC [id number] 17:04:00 Test Item Value Reference Range Comments SODIUM (BEAKER) (test 138 meq/L 136-145 zmrr=186) POTASSIUM (BEAKER) (test 4.2 meq/L 3.5-5.1 tlug=758) CHLORIDE (BEAKER) (test 109 meq/L 98-107 dpaq=715) CO2 (BEAKER) (test 22 meq/L 22-29 xxiz=714) BLOOD UREA NITROGEN 11 mg/dL 7-21 (BEAKER) (test uvui=071) CREATININE (BEAKER) (test 0.76 mg/dL 0.57-1.25 zwuj=673) GLUCOSE RANDOM (BEAKER) 104 mg/dL 70-105 (test tcgt=354) CALCIUM (BEAKER) (test 9.5 mg/dL 8.4-10.2 phbt=358) EGFR (BEAKER) (test 103 mL/min/1.73 sq m ESTIMATED GFR IS NOT gwhd=9492) ACCURATE CREATININE CLEARANCE IN PREDICTING GLOMERULAR FILTRATION RATE. ESTIMATED GFR IS NOT APPLICABLE FOR DIALYSIS PATIENTS. ANTI-MITOCHONDRIAL AB, REFLEX TO [id number] 11:03:00 Test Item Value Reference Range Comments SCAN RESULT (test ttsi=[id number]) CALCIUM, [id number] 07:05:00 Test Item Value Reference Range Comments CALCIUM IONIZED (BEAKER) (test raph=855) 1.10 mmol/L 1.12-1.27 PH, BLOOD (BEAKER) (test ncsf=4000) 7.30 [id number] 06:22:00 Test Item Value Reference Range Comments PHOSPHORUS (BEAKER) (test pqar=335) 4.7 mg/dL 2.3-4.7 [id number] 06:22:00 Test Item Value Reference Range Comments MAGNESIUM (BEAKER) (test dour=924) 1.4 mg/dL 1.6-2.6 BASIC METABOLIC [id number] 06:22:00 Test Item Value Reference Range Comments SODIUM (BEAKER) (test 135 meq/L 136-145 njcu=732) POTASSIUM (BEAKER) (test 4.5 meq/L 3.5-5.1 gbng=411) CHLORIDE (BEAKER) (test 100 meq/L 98-107 tfht=818) CO2 (BEAKER) (test 29 meq/L 22-29 ywyz=983) BLOOD UREA NITROGEN 19 mg/dL 7-21 (BEAKER) (test gzkl=274) CREATININE (BEAKER) (test 0.76 mg/dL 0.57-1.25 hsrc=824) GLUCOSE RANDOM (BEAKER) 104 mg/dL 70-105 (test rfak=603) CALCIUM (BEAKER) (test 9.3 mg/dL 8.4-10.2 qrhn=599) EGFR (BEAKER) (test 103 mL/min/1.73 sq m ESTIMATED GFR IS NOT rpvz=7707) ACCURATE CREATININE CLEARANCE IN PREDICTING GLOMERULAR FILTRATION RATE. ESTIMATED GFR IS NOT APPLICABLE FOR DIALYSIS PATIENTS. CREATINE KINASE (CK)2017-11-24 08:12:00 Test Item Value Reference Range Comments CREATINE KINASE TOTAL (BEAKER) (test hnhe=163) 8 U/L 29-200 URIC [id number] 08:01:00 Test Item Value Reference Range Comments URIC ACID (BEAKER) (test dpza=556) 4.8 mg/dL 2.6-7.2 [id number] 08:01:00 Test Item Value Reference Range Comments MAGNESIUM (BEAKER) (test sbtz=625) 1.5 mg/dL 1.6-2.6 [id number] 08:01:00 Test Item Value Reference Range Comments PHOSPHORUS (BEAKER) (test oeub=505) 5.3 mg/dL 2.3-4.7 BASIC METABOLIC [id number] 08:01:00 Test Item Value Reference Range Comments SODIUM (BEAKER) (test 138 meq/L 136-145 jgbz=179) POTASSIUM (BEAKER) (test 4.9 meq/L 3.5-5.1 aqyr=948) CHLORIDE (BEAKER) (test 100 meq/L 98-107 lxcn=228) CO2 (BEAKER) (test 28 meq/L 22-29 ahdk=748) BLOOD UREA NITROGEN 22 mg/dL 7-21 (BEAKER) (test rbek=139) CREATININE (BEAKER) (test 0.80 mg/dL 0.57-1.25 xtos=648) GLUCOSE RANDOM (BEAKER) 102 mg/dL 70-105 (test qpgz=742) CALCIUM (BEAKER) (test 9.3 mg/dL 8.4-10.2 ajwc=946) EGFR (BEAKER) (test 97 mL/min/1.73 sq m ESTIMATED GFR IS NOT jfpo=3771) ACCURATE CREATININE CLEARANCE IN PREDICTING GLOMERULAR FILTRATION RATE. ESTIMATED GFR IS NOT APPLICABLE FOR DIALYSIS PATIENTS. LACTATE DEHYDROGENASE (LDH)2017-11-24 08:01:00 Test Item Value Reference Range Comments LACTATE DEHYDROGENASE (BEAKER) (test xkov=210) 489 U/L 125-220 [id number] 18:07:00 Test Item Value Reference Range Comments POTASSIUM (BEAKER) (test xnpo=971) 5.5 meq/L 3.5-5.1 Call if K > 5.4 to renal 713 790 1032CALCIUM, [id number] 06:51:00 Test Item Value Reference Range Comments CALCIUM IONIZED (BEAKER) (test hnav=651) 1.08 mmol/L 1.12-1.27 PH, BLOOD (BEAKER) (test xyvk=5195) 7.35 CBC W/PLT COUNT & AUTO [id number] 06:25:00 Test Item Value Reference Range Comments WHITE BLOOD CELL COUNT (BEAKER) (test hjit=857) 18.3 K/ L 3.5-10.5 RED BLOOD CELL COUNT (BEAKER) (test yzlh=933) 2.30 M/ L 3.93-5.22 HEMOGLOBIN (BEAKER) (test zanx=895) 6.5 GM/DL 11.2-15.7 HEMATOCRIT (BEAKER) (test ssoj=480) 21.1 % 34.1-44.9 MEAN CORPUSCULAR VOLUME (BEAKER) (test tubt=232) 91.7 fL 79.4-94.8 MEAN CORPUSCULAR HEMOGLOBIN (BEAKER) (test 28.3 pg 25.6-32.2 evbz=478) MEAN CORPUSCULAR HEMOGLOBIN CONC (BEAKER) (test 30.8 GM/DL 32.2-35.5 xduq=082) RED CELL DISTRIBUTION WIDTH (BEAKER) (test 21.2 % 11.7-14.4 sbac=948) PLATELET COUNT (BEAKER) (test kcnd=195) 414 K/CU MM 150-450 MEAN PLATELET VOLUME (BEAKER) (test oiya=413) 11.5 fL 9.4-12.3 NUCLEATED RED BLOOD CELLS (BEAKER) (test 0 /100 WBC 0-0 svct=477) NEUTROPHILS RELATIVE PERCENT (BEAKER) (test 53 % mugf=418) LYMPHOCYTES RELATIVE PERCENT (BEAKER) (test 25 % saxl=252) MONOCYTES RELATIVE PERCENT (BEAKER) (test 19 % ejfr=330) EOSINOPHILS RELATIVE PERCENT (BEAKER) (test 2 % avro=764) BASOPHILS RELATIVE PERCENT (BEAKER) (test 0 % trba=820) NEUTROPHILS ABSOLUTE COUNT (BEAKER) (test 9.74 K/ L 1.56-6.13 wkwn=742) LYMPHOCYTES ABSOLUTE COUNT (BEAKER) (test 4.57 K/ L 1.18-3.74 zrqn=569) MONOCYTES ABSOLUTE COUNT (BEAKER) (test 3.51 K/ L 0.24-0.36 fxlp=182) EOSINOPHILS ABSOLUTE COUNT (BEAKER) (test 0.29 K/ L 0.04-0.36 hqsk=734) BASOPHILS ABSOLUTE COUNT (BEAKER) (test 0.07 K/ L 0.01-0.08 jjzw=515) IMMATURE GRANULOCYTES-RELATIVE PERCENT (BEAKER) 1 % 0-1 (test jjmk=6390) [id number] 05:35:00 Test Item Value Reference Range Comments PHOSPHORUS (BEAKER) (test szhd=225) 4.4 mg/dL 2.3-4.7 [id number] 05:35:00 Test Item Value Reference Range Comments MAGNESIUM (BEAKER) (test xpua=058) 1.3 mg/dL 1.6-2.6 BASIC METABOLIC [id number] 05:35:00 Test Item Value Reference Range Comments SODIUM (BEAKER) (test 136 meq/L 136-145 acpy=261) POTASSIUM (BEAKER) (test 5.4 meq/L 3.5-5.1 pxpn=130) CHLORIDE (BEAKER) (test 97 meq/L 98-107 wxbc=927) CO2 (BEAKER) (test 31 meq/L 22-29 pxji=048) BLOOD UREA NITROGEN 20 mg/dL 7-21 (BEAKER) (test lijj=536) CREATININE (BEAKER) (test 0.75 mg/dL 0.57-1.25 izho=586) GLUCOSE RANDOM (BEAKER) 81 mg/dL 70-105 (test bnlm=553) CALCIUM (BEAKER) (test 9.5 mg/dL 8.4-10.2 ofnh=724) EGFR (BEAKER) (test 105 mL/min/1.73 sq m ESTIMATED GFR IS NOT aqmp=5641) ACCURATE CREATININE CLEARANCE IN PREDICTING GLOMERULAR FILTRATION RATE. ESTIMATED GFR IS NOT APPLICABLE FOR DIALYSIS PATIENTS. [id number] 16:19:00 Test Item Value Reference Range Comments POTASSIUM (BEAKER) (test febb=632) 5.2 meq/L 3.5-5.1 Repeat after 3 hours kayexalate was given; call result [id number] 12:53:00 Test Item Value Reference Range Comments SODIUM (BEAKER) (test fbbo=457) 137 meq/L 136-145 POTASSIUM (BEAKER) (test uxip=201) 5.4 meq/L 3.5-5.1 CHLORIDE (BEAKER) (test walc=962) 100 meq/L 98-107 CO2 (BEAKER) (test mylx=884) 30 meq/L 22-29 Call results [id number] 11:14:00 Test Item Value Reference Range Comments POTASSIUM (BEAKER) (test jnra=044) 5.8 meq/L 3.5-5.1 [id number] 06:40:00 Test Item Value Reference Range Comments PHOSPHORUS (BEAKER) (test xrhm=182) 5.4 mg/dL 2.3-4.7 [id number] 06:40:00 Test Item Value Reference Range Comments MAGNESIUM (BEAKER) (test yyxr=260) 1.6 mg/dL 1.6-2.6 CALCIUM, [id number] 06:27:00 Test Item Value Reference Range Comments CALCIUM IONIZED (BEAKER) (test eeez=917) 0.99 mmol/L 1.12-1.27 PH, BLOOD (BEAKER) (test nrlo=2885) 7.43 CBC W/PLT COUNT & AUTO [id number] 05:53:00 Test Item Value Reference Range Comments WHITE BLOOD CELL COUNT (BEAKER) (test meqa=994) 16.2 K/ L 3.5-10.5 RED BLOOD CELL COUNT (BEAKER) (test apzk=400) 2.38 M/ L 3.93-5.22 HEMOGLOBIN (BEAKER) (test qpjx=129) 7.0 GM/DL 11.2-15.7 HEMATOCRIT (BEAKER) (test agdp=730) 22.2 % 34.1-44.9 MEAN CORPUSCULAR VOLUME (BEAKER) (test lnav=674) 93.3 fL 79.4-94.8 MEAN CORPUSCULAR HEMOGLOBIN (BEAKER) (test 29.4 pg 25.6-32.2 kzul=206) MEAN CORPUSCULAR HEMOGLOBIN CONC (BEAKER) (test 31.5 GM/DL 32.2-35.5 sfdk=268) RED CELL DISTRIBUTION WIDTH (BEAKER) (test 21.3 % 11.7-14.4 bjhz=853) PLATELET COUNT (BEAKER) (test mmal=418) 390 K/CU MM 150-450 MEAN PLATELET VOLUME (BEAKER) (test yaqc=326) 11.8 fL 9.4-12.3 NUCLEATED RED BLOOD CELLS (BEAKER) (test 0 /100 WBC 0-0 scwu=150) NEUTROPHILS RELATIVE PERCENT (BEAKER) (test 58 % vhag=660) LYMPHOCYTES RELATIVE PERCENT (BEAKER) (test 23 % tlsn=198) MONOCYTES RELATIVE PERCENT (BEAKER) (test 17 % wich=881) EOSINOPHILS RELATIVE PERCENT (BEAKER) (test 2 % axks=964) BASOPHILS RELATIVE PERCENT (BEAKER) (test 0 % ifdj=245) NEUTROPHILS ABSOLUTE COUNT (BEAKER) (test 9.31 K/ L 1.56-6.13 rggw=706) LYMPHOCYTES ABSOLUTE COUNT (BEAKER) (test 3.65 K/ L 1.18-3.74 svva=556) MONOCYTES ABSOLUTE COUNT (BEAKER) (test 2.70 K/ L 0.24-0.36 nnyz=996) EOSINOPHILS ABSOLUTE COUNT (BEAKER) (test 0.36 K/ L 0.04-0.36 pffe=052) BASOPHILS ABSOLUTE COUNT (BEAKER) (test 0.04 K/ L 0.01-0.08 nlmd=170) IMMATURE GRANULOCYTES-RELATIVE PERCENT (BEAKER) 1 % 0-1 (test huop=6135) BASIC METABOLIC [id number] 17:35:00 Test Item Value Reference Range Comments SODIUM (BEAKER) (test 133 meq/L 136-145 bjpd=530) POTASSIUM (BEAKER) (test 5.4 meq/L 3.5-5.1 xkpi=406) CHLORIDE (BEAKER) (test 99 meq/L 98-107 nilr=271) CO2 (BEAKER) (test 26 meq/L 22-29 cdcb=498) BLOOD UREA NITROGEN 23 mg/dL 7-21 (BEAKER) (test gklo=534) CREATININE (BEAKER) (test 0.83 mg/dL 0.57-1.25 vupv=120) GLUCOSE RANDOM (BEAKER) 94 mg/dL 70-105 (test ogzo=983) CALCIUM (BEAKER) (test 9.2 mg/dL 8.4-10.2 wtsc=040) EGFR (BEAKER) (test 93 mL/min/1.73 sq m ESTIMATED GFR IS NOT whjl=7049) ACCURATE CREATININE CLEARANCE IN PREDICTING GLOMERULAR FILTRATION RATE. ESTIMATED GFR IS NOT APPLICABLE FOR DIALYSIS PATIENTS. [id number] 06:33:00 Test Item Value Reference Range Comments PHOSPHORUS (BEAKER) (test tpxk=031) 5.3 mg/dL 2.3-4.7 [id number] 06:33:00 Test Item Value Reference Range Comments MAGNESIUM (BEAKER) (test sazj=114) 1.6 mg/dL 1.6-2.6 BASIC METABOLIC [id number] 06:33:00 Test Item Value Reference Range Comments SODIUM (BEAKER) (test 133 meq/L 136-145 jxwv=864) POTASSIUM (BEAKER) (test 5.2 meq/L 3.5-5.1 lafz=685) CHLORIDE (BEAKER) (test 97 meq/L 98-107 gafn=712) CO2 (BEAKER) (test 29 meq/L 22-29 vmcu=772) BLOOD UREA NITROGEN 23 mg/dL 7-21 (BEAKER) (test boou=771) CREATININE (BEAKER) (test 0.77 mg/dL 0.57-1.25 lioy=332) GLUCOSE RANDOM (BEAKER) 92 mg/dL 70-105 (test ldhr=041) CALCIUM (BEAKER) (test 9.4 mg/dL 8.4-10.2 pydt=774) EGFR (BEAKER) (test 102 mL/min/1.73 sq m ESTIMATED GFR IS NOT zabt=9560) ACCURATE CREATININE CLEARANCE IN PREDICTING GLOMERULAR FILTRATION RATE. ESTIMATED GFR IS NOT APPLICABLE FOR DIALYSIS PATIENTS. CALCIUM, [id number] 06:22:00 Test Item Value Reference Range Comments CALCIUM IONIZED (BEAKER) (test skbm=778) 1.18 mmol/L 1.12-1.27 PH, BLOOD (BEAKER) (test sqvw=0629) 7.32 B-TYPE NATRIURETIC FACTOR (BNP)2017-11-21 06:19:00 Test Item Value Reference Range Comments B-TYPE NATRIURETIC PEPTIDE (BEAKER) (test 120 pg/mL 0-100 rvfr=713) CBC W/PLT COUNT & AUTO [id number] 05:59:00 Test Item Value Reference Range Comments WHITE BLOOD CELL COUNT (BEAKER) (test lubm=591) 17.4 K/ L 3.5-10.5 RED BLOOD CELL COUNT (BEAKER) (test bzou=025) 2.32 M/ L 3.93-5.22 HEMOGLOBIN (BEAKER) (test cvjn=528) 6.7 GM/DL 11.2-15.7 HEMATOCRIT (BEAKER) (test htjd=049) 21.6 % 34.1-44.9 MEAN CORPUSCULAR VOLUME (BEAKER) (test gssh=791) 93.1 fL 79.4-94.8 MEAN CORPUSCULAR HEMOGLOBIN (BEAKER) (test 28.9 pg 25.6-32.2 zpmt=157) MEAN CORPUSCULAR HEMOGLOBIN CONC (BEAKER) (test 31.0 GM/DL 32.2-35.5 lqjl=951) RED CELL DISTRIBUTION WIDTH (BEAKER) (test 20.9 % 11.7-14.4 bcrz=622) PLATELET COUNT (BEAKER) (test tgfw=648) 367 K/CU MM 150-450 MEAN PLATELET VOLUME (BEAKER) (test wqfo=504) 12.1 fL 9.4-12.3 NUCLEATED RED BLOOD CELLS (BEAKER) (test 0 /100 WBC 0-0 zxtz=577) NEUTROPHILS RELATIVE PERCENT (BEAKER) (test 58 % xbls=977) LYMPHOCYTES RELATIVE PERCENT (BEAKER) (test 23 % jvpw=787) MONOCYTES RELATIVE PERCENT (BEAKER) (test 16 % rcpu=213) EOSINOPHILS RELATIVE PERCENT (BEAKER) (test 3 % xvup=124) BASOPHILS RELATIVE PERCENT (BEAKER) (test 1 % lhgb=192) NEUTROPHILS ABSOLUTE COUNT (BEAKER) (test 10.09 K/ L 1.56-6.13 dfca=047) LYMPHOCYTES ABSOLUTE COUNT (BEAKER) (test 3.92 K/ L 1.18-3.74 rhfd=107) MONOCYTES ABSOLUTE COUNT (BEAKER) (test 2.71 K/ L 0.24-0.36 mfbx=062) EOSINOPHILS ABSOLUTE COUNT (BEAKER) (test 0.46 K/ L 0.04-0.36 hduo=082) BASOPHILS ABSOLUTE COUNT (BEAKER) (test 0.08 K/ L 0.01-0.08 nzaj=666) IMMATURE GRANULOCYTES-RELATIVE PERCENT (BEAKER) 1 % 0-1 (test puso=6879) BLOOD GAS, [id number] 07:22:00 Test Item Value Reference Range Comments PH VENOUS (BEAKER) (test jvbi=356) 7.34 7.32-7.42 PCO2 VENOUS (BEAKER) (test eyrg=589) 63 mmHg 41-51 PO2 VENOUS (BEAKER) (test xgqk=663) 133 mmHg 25-40 O2 SATURATION VENOUS (BEAKER) (test bqic=465) 98.4 % 40.0-70.0 HCO3 VENOUS (BEAKER) (test yagj=334) 33 mmol/L 21-29 BASE EXCESS VENOUS (BEAKER) (test zhls=488) 6.6 mmol/L -2.0-3.0 PATIENT TEMPERATURE (BEAKER) (test ecol=7528) 37.0 C FIO2 (BEAKER) (test ynys=7547) 21.0 % CALCIUM, [id number] 07:20:00 Test Item Value Reference Range Comments CALCIUM IONIZED (BEAKER) (test hwpb=534) 1.10 mmol/L 1.12-1.27 PH, BLOOD (BEAKER) (test pavu=5312) 7.33 [id number] 07:18:00 Test Item Value Reference Range Comments PHOSPHORUS (BEAKER) (test lotc=108) 4.8 mg/dL 2.3-4.7 [id number] 07:18:00 Test Item Value Reference Range Comments MAGNESIUM (BEAKER) (test rnpy=267) 1.6 mg/dL 1.6-2.6 BASIC METABOLIC [id number] 07:18:00 Test Item Value Reference Range Comments SODIUM (BEAKER) (test 137 meq/L 136-145 pywo=670) POTASSIUM (BEAKER) (test 4.8 meq/L 3.5-5.1 wrhw=083) CHLORIDE (BEAKER) (test 99 meq/L 98-107 yvgq=949) CO2 (BEAKER) (test 31 meq/L 22-29 ridi=793) BLOOD UREA NITROGEN 20 mg/dL 7-21 (BEAKER) (test dygd=386) CREATININE (BEAKER) (test 0.83 mg/dL 0.57-1.25 xtuq=795) GLUCOSE RANDOM (BEAKER) 117 mg/dL 70-105 (test sdgx=188) CALCIUM (BEAKER) (test 9.5 mg/dL 8.4-10.2 bikf=483) EGFR (BEAKER) (test 93 mL/min/1.73 sq m ESTIMATED GFR IS NOT nomu=5477) ACCURATE CREATININE CLEARANCE IN PREDICTING GLOMERULAR FILTRATION RATE. ESTIMATED GFR IS NOT APPLICABLE FOR DIALYSIS PATIENTS. CBC W/PLT COUNT & AUTO [id number] 07:14:00 Test Item Value Reference Range Comments WHITE BLOOD CELL COUNT (BEAKER) (test dgnt=150) 16.7 K/ L 3.5-10.5 RED BLOOD CELL COUNT (BEAKER) (test jytc=465) 2.39 M/ L 3.93-5.22 HEMOGLOBIN (BEAKER) (test vrga=561) 6.9 GM/DL 11.2-15.7 HEMATOCRIT (BEAKER) (test vizc=426) 22.3 % 34.1-44.9 MEAN CORPUSCULAR VOLUME (BEAKER) (test ixaf=058) 93.3 fL 79.4-94.8 MEAN CORPUSCULAR HEMOGLOBIN (BEAKER) (test 28.9 pg 25.6-32.2 nxwi=081) MEAN CORPUSCULAR HEMOGLOBIN CONC (BEAKER) (test 30.9 GM/DL 32.2-35.5 gvhs=955) RED CELL DISTRIBUTION WIDTH (BEAKER) (test 21.1 % 11.7-14.4 kbfj=609) PLATELET COUNT (BEAKER) (test lvmf=822) 344 K/CU MM 150-450 MEAN PLATELET VOLUME (BEAKER) (test ojys=232) 11.7 fL 9.4-12.3 NUCLEATED RED BLOOD CELLS (BEAKER) (test 0 /100 WBC 0-0 zgmw=805) NEUTROPHILS RELATIVE PERCENT (BEAKER) (test 60 % nydm=876) LYMPHOCYTES RELATIVE PERCENT (BEAKER) (test 23 % qktz=576) MONOCYTES RELATIVE PERCENT (BEAKER) (test 14 % ouhg=329) EOSINOPHILS RELATIVE PERCENT (BEAKER) (test 3 % ycti=303) BASOPHILS RELATIVE PERCENT (BEAKER) (test 0 % hukk=090) NEUTROPHILS ABSOLUTE COUNT (BEAKER) (test 9.95 K/ L 1.56-6.13 fmsf=966) LYMPHOCYTES ABSOLUTE COUNT (BEAKER) (test 3.92 K/ L 1.18-3.74 qhaz=720) MONOCYTES ABSOLUTE COUNT (BEAKER) (test 2.29 K/ L 0.24-0.36 esgk=353) EOSINOPHILS ABSOLUTE COUNT (BEAKER) (test 0.45 K/ L 0.04-0.36 idhw=585) BASOPHILS ABSOLUTE COUNT (BEAKER) (test 0.04 K/ L 0.01-0.08 bctn=109) IMMATURE GRANULOCYTES-RELATIVE PERCENT (BEAKER) 0 % 0-1 (test bihf=5195) [id number] 11:18:00 Test Item Value Reference Range Comments FERRITIN (BEAKER) (test fxod=898) 98468 ng/mL 5-275 [id number] 07:10:00 Test Item Value Reference Range Comments MAGNESIUM (BEAKER) (test nrpw=709) 2.0 mg/dL 1.6-2.6 BASIC METABOLIC [id number] 07:10:00 Test Item Value Reference Range Comments SODIUM (BEAKER) (test 137 meq/L 136-145 exzo=926) POTASSIUM (BEAKER) (test 4.5 meq/L 3.5-5.1 bmwa=079) CHLORIDE (BEAKER) (test 99 meq/L 98-107 adme=256) CO2 (BEAKER) (test 35 meq/L 22-29 aqby=567) BLOOD UREA NITROGEN 18 mg/dL 7-21 (BEAKER) (test jtxs=086) CREATININE (BEAKER) (test 0.78 mg/dL 0.57-1.25 nyms=437) GLUCOSE RANDOM (BEAKER) 102 mg/dL 70-105 (test zitf=763) CALCIUM (BEAKER) (test 9.4 mg/dL 8.4-10.2 lgki=313) EGFR (BEAKER) (test 100 mL/min/1.73 sq m ESTIMATED GFR IS NOT blwy=3456) ACCURATE CREATININE CLEARANCE IN PREDICTING GLOMERULAR FILTRATION RATE. ESTIMATED GFR IS NOT APPLICABLE FOR DIALYSIS PATIENTS. CBC (HEMOGRAM ONLY)2017-11-19 07:06:00 Test Item Value Reference Range Comments WHITE BLOOD CELL COUNT (BEAKER) (test ihth=194) 15.3 K/ L 3.5-10.5 RED BLOOD CELL COUNT (BEAKER) (test ursk=814) 2.42 M/ L 3.93-5.22 HEMOGLOBIN (BEAKER) (test qfxs=617) 7.1 GM/DL 11.2-15.7 HEMATOCRIT (BEAKER) (test xlsl=798) 22.5 % 34.1-44.9 MEAN CORPUSCULAR VOLUME (BEAKER) (test xldl=823) 93.0 fL 79.4-94.8 MEAN CORPUSCULAR HEMOGLOBIN (BEAKER) (test 29.3 pg 25.6-32.2 jpoj=904) MEAN CORPUSCULAR HEMOGLOBIN CONC (BEAKER) (test 31.6 GM/DL 32.2-35.5 aero=870) RED CELL DISTRIBUTION WIDTH (BEAKER) (test 20.9 % 11.7-14.4 hywk=135) PLATELET COUNT (BEAKER) (test ngvx=652) 324 K/CU MM 150-450 MEAN PLATELET VOLUME (BEAKER) (test sojx=438) 11.8 fL 9.4-12.3 NUCLEATED RED BLOOD CELLS (BEAKER) (test 1 /100 WBC 0-0 kbng=639) BLOOD [id number] 06:00:00 Test Item Value Reference Range Comments CULTURE (BEAKER) (test jpjt=8085) No growth in 5 days ANTI-NUCLEAR ANTIBODY (AMARILYS)2017-11-17 14:21:00 Test Item Value Reference Range Comments ANTI-NUCLEAR ANTIBODY (AMARILYS) (BEAKER) (test Positive Negative ixtw=642) AMARILYS TITER AND [id number] 14:21:00 Test Item Value Reference Range Comments AMARILYS TITER (BEAKER) (test :160 xhny=5555) AMARILYS PATTERN (BEAKER) (test Multiple nuclear dots pattern mnaz=4395) [id number] 07:16:00 Test Item Value Reference Range Comments PHOSPHORUS (BEAKER) (test dzxf=506) 4.5 mg/dL 2.3-4.7 [id number] 07:16:00 Test Item Value Reference Range Comments MAGNESIUM (BEAKER) (test irtp=885) 1.4 mg/dL 1.6-2.6 BASIC METABOLIC [id number] 07:16:00 Test Item Value Reference Range Comments SODIUM (BEAKER) (test 141 meq/L 136-145 rkya=370) POTASSIUM (BEAKER) (test 4.2 meq/L 3.5-5.1 gauz=523) CHLORIDE (BEAKER) (test 98 meq/L 98-107 eixi=584) CO2 (BEAKER) (test 34 meq/L 22-29 nydo=779) BLOOD UREA NITROGEN 21 mg/dL 7-21 (BEAKER) (test jvyh=871) CREATININE (BEAKER) (test 0.85 mg/dL 0.57-1.25 tpmo=358) GLUCOSE RANDOM (BEAKER) 98 mg/dL 70-105 (test zxbj=395) CALCIUM (BEAKER) (test 9.2 mg/dL 8.4-10.2 xsnf=249) EGFR (BEAKER) (test 91 mL/min/1.73 sq m ESTIMATED GFR IS NOT fwiq=9909) ACCURATE CREATININE CLEARANCE IN PREDICTING GLOMERULAR FILTRATION RATE. ESTIMATED GFR IS NOT APPLICABLE FOR DIALYSIS PATIENTS. HEPATIC FUNCTION [id number] 07:16:00 Test Item Value Reference Range Comments TOTAL PROTEIN (BEAKER) (test chkk=494) 8.3 gm/dL 6.0-8.3 ALBUMIN (BEAKER) (test htuv=6373) 3.0 g/dL 3.5-5.0 BILIRUBIN TOTAL (BEAKER) (test ffvv=869) 1.3 mg/dL 0.2-1.2 BILIRUBIN DIRECT (BEAKER) (test kdfg=963) 0.7 mg/dL 0.1-0.5 ALKALINE PHOSPHATASE (BEAKER) (test jgyg=629) 217 U/L 40-150 AST (SGOT) (BEAKER) (test zgye=933) 106 U/L 5-34 ALT (SGPT) (BEAKER) (test qcgv=468) 46 U/L 6-55 CALCIUM, [id number] 06:50:00 Test Item Value Reference Range Comments CALCIUM IONIZED (BEAKER) (test lseb=427) 1.11 mmol/L 1.12-1.27 PH, BLOOD (BEAKER) (test gxuy=6624) 7.34 CBC W/PLT COUNT & AUTO [id number] 06:09:00 Test Item Value Reference Range Comments WHITE BLOOD CELL COUNT (BEAKER) (test tyhd=697) 16.8 K/ L 3.5-10.5 RED BLOOD CELL COUNT (BEAKER) (test ckpe=070) 2.53 M/ L 3.93-5.22 HEMOGLOBIN (BEAKER) (test zdnc=896) 7.3 GM/DL 11.2-15.7 HEMATOCRIT (BEAKER) (test eecr=651) 23.3 % 34.1-44.9 MEAN CORPUSCULAR VOLUME (BEAKER) (test qgcu=467) 92.1 fL 79.4-94.8 MEAN CORPUSCULAR HEMOGLOBIN (BEAKER) (test 28.9 pg 25.6-32.2 rfrc=878) MEAN CORPUSCULAR HEMOGLOBIN CONC (BEAKER) (test 31.3 GM/DL 32.2-35.5 kwlg=228) RED CELL DISTRIBUTION WIDTH (BEAKER) (test 20.2 % 11.7-14.4 usgz=151) PLATELET COUNT (BEAKER) (test ruvh=487) 305 K/CU MM 150-450 MEAN PLATELET VOLUME (BEAKER) (test vroj=449) 12.0 fL 9.4-12.3 NUCLEATED RED BLOOD CELLS (BEAKER) (test 1 /100 WBC 0-0 impd=889) NEUTROPHILS RELATIVE PERCENT (BEAKER) (test 66 % ezxd=145) LYMPHOCYTES RELATIVE PERCENT (BEAKER) (test 20 % rlqk=614) MONOCYTES RELATIVE PERCENT (BEAKER) (test 11 % yrdm=111) EOSINOPHILS RELATIVE PERCENT (BEAKER) (test 3 % jkjr=394) BASOPHILS RELATIVE PERCENT (BEAKER) (test 0 % yfcs=954) NEUTROPHILS ABSOLUTE COUNT (BEAKER) (test 10.99 K/ L 1.56-6.13 qztn=432) LYMPHOCYTES ABSOLUTE COUNT (BEAKER) (test 3.29 K/ L 1.18-3.74 rayl=279) MONOCYTES ABSOLUTE COUNT (BEAKER) (test 1.89 K/ L 0.24-0.36 tqpm=711) EOSINOPHILS ABSOLUTE COUNT (BEAKER) (test 0.48 K/ L 0.04-0.36 erws=071) BASOPHILS ABSOLUTE COUNT (BEAKER) (test 0.05 K/ L 0.01-0.08 lzhk=239) IMMATURE GRANULOCYTES-RELATIVE PERCENT (BEAKER) 0 % 0-1 (test rglx=1218) HEPATITIS PANEL, [id number] 14:32:00 Test Item Value Reference Range Comments HEPATITIS A IGM ANTIBODY (BEAKER) (test Nonreactive Nonreactive ieof=073) HEPATITIS B CORE IGM ANTIBODY (BEAKER) (test Nonreactive Nonreactive iggg=432) HEPATITIS C ANTIBODY (BEAKER) (test ytdr=828) Nonreactive Nonreactive HEPATITIS B SURFACE ANTIGEN (2) (BEAKER) (test Nonreactive Nonreactive zmbl=7166) RAD, MANDIBLE, LESS THAN 4 [id number] 12:28:00Reason for exam:->fever, dental cariesFINAL REPORT Mandible [...] air cells are well aerated. Signed: [employer] Verified Date/Time: 11/16/2017 12:28:43 Reading Location: [facility] Radiology Reading Room RAD, CHEST, 2 [id number] 10:47:00Reason for exam:-> fever, chest painFINAL REPORT [...] MDReport Verified Date/Time: 11/16/2017 10:47:19 Reading Location: [facility] Radiology Reading Room URINE [id number] 09:53:00 Test Item Value Reference Range Comments CULTURE (BEAKER) (test rimx=1717) >100,000 col/mL skin valentino CBC W/PLT COUNT & AUTO [id number] 09:20:00 Test Item Value Reference Range Comments WHITE BLOOD CELL COUNT (BEAKER) (test hqcy=086) 18.6 K/ L 3.5-10.5 RED BLOOD CELL COUNT (BEAKER) (test vtte=064) 2.63 M/ L 3.93-5.22 HEMOGLOBIN (BEAKER) (test knab=475) 7.6 GM/DL 11.2-15.7 HEMATOCRIT (BEAKER) (test bunb=916) 23.8 % 34.1-44.9 MEAN CORPUSCULAR VOLUME (BEAKER) (test dgfs=016) 90.5 fL 79.4-94.8 MEAN CORPUSCULAR HEMOGLOBIN (BEAKER) (test 28.9 pg 25.6-32.2 plwk=963) MEAN CORPUSCULAR HEMOGLOBIN CONC (BEAKER) (test 31.9 GM/DL 32.2-35.5 ocsu=397) RED CELL DISTRIBUTION WIDTH (BEAKER) (test 19.9 % 11.7-14.4 biiz=025) PLATELET COUNT (BEAKER) (test fmew=089) 330 K/CU MM 150-450 MEAN PLATELET VOLUME (BEAKER) (test iytm=829) 11.9 fL 9.4-12.3 NUCLEATED RED BLOOD CELLS (BEAKER) (test 1 /100 WBC 0-0 kxwo=206) NEUTROPHILS RELATIVE PERCENT (BEAKER) (test 65 % zzdt=828) LYMPHOCYTES RELATIVE PERCENT (BEAKER) (test 22 % ahvu=903) MONOCYTES RELATIVE PERCENT (BEAKER) (test 10 % fnco=200) EOSINOPHILS RELATIVE PERCENT (BEAKER) (test 2 % vggi=454) BASOPHILS RELATIVE PERCENT (BEAKER) (test 0 % mjhh=496) NEUTROPHILS ABSOLUTE COUNT (BEAKER) (test 12.09 K/ L 1.56-6.13 uajt=654) LYMPHOCYTES ABSOLUTE COUNT (BEAKER) (test 4.02 K/ L 1.18-3.74 pcjs=814) MONOCYTES ABSOLUTE COUNT (BEAKER) (test 1.90 K/ L 0.24-0.36 qenq=831) EOSINOPHILS ABSOLUTE COUNT (BEAKER) (test 0.41 K/ L 0.04-0.36 ccde=576) BASOPHILS ABSOLUTE COUNT (BEAKER) (test 0.05 K/ L 0.01-0.08 cznf=534) IMMATURE GRANULOCYTES-RELATIVE PERCENT (BEAKER) 0 % 0-1 (test nxcy=0869) (MANUAL DIFFERENTIAL)2017-11-16 09:20:00 Test Item Value Reference Range Comments TOTAL COUNTED (BEAKER) (test vrwt=3430) WBC MORPHOLOGY (BEAKER) (test ilpu=118) Normal PLT MORPHOLOGY (BEAKER) (test yrjt=515) Normal POLYCHROMATOPHILLIC RBCS(BEAKER) (test cvni=668) 1+ few SICKLE CELLS (BEAKER) (test seni=678) 1+ few TARGET CELLS (BEAKER) (test ssvi=799) 2+ moderate CALCIUM, [id number] 07:28:00 Test Item Value Reference Range Comments CALCIUM IONIZED (BEAKER) (test ubaq=946) 0.97 mmol/L 1.12-1.27 PH, BLOOD (BEAKER) (test nevo=3642) 7.45 [id number] 05:48:00 Test Item Value Reference Range Comments PHOSPHORUS (BEAKER) (test jelf=238) 4.8 mg/dL 2.3-4.7 [id number] 05:48:00 Test Item Value Reference Range Comments MAGNESIUM (BEAKER) (test nwcz=800) 1.6 mg/dL 1.6-2.6 BASIC METABOLIC [id number] 05:48:00 Test Item Value Reference Range Comments SODIUM (BEAKER) (test 139 meq/L 136-145 fjfz=480) POTASSIUM (BEAKER) (test 3.9 meq/L 3.5-5.1 myoz=043) CHLORIDE (BEAKER) (test 98 meq/L 98-107 pdue=689) CO2 (BEAKER) (test 32 meq/L 22-29 saeo=950) BLOOD UREA NITROGEN 23 mg/dL 7-21 (BEAKER) (test ptfr=187) CREATININE (BEAKER) (test 1.10 mg/dL 0.57-1.25 mizp=800) GLUCOSE RANDOM (BEAKER) 115 mg/dL 70-105 (test temj=223) CALCIUM (BEAKER) (test 9.0 mg/dL 8.4-10.2 shjs=123) EGFR (BEAKER) (test 67 mL/min/1.73 sq m ESTIMATED GFR IS NOT gbrn=1158) ACCURATE CREATININE CLEARANCE IN PREDICTING GLOMERULAR FILTRATION RATE. ESTIMATED GFR IS NOT APPLICABLE FOR DIALYSIS PATIENTS. URINALYSIS W/ [id number] 19:14:00 Test Item Value Reference Range Comments COLOR (BEAKER) (test irgv=962) Yellow CLARITY (BEAKER) (test odxe=245) Clear SPECIFIC GRAVITY UA (BEAKER) (test sdne=670) 1.006 1.001-1.035 PH UA (BEAKER) (test iiyc=110) 7.5 5.0-8.0 PROTEIN UA (BEAKER) (test uqcg=806) Negative Negative GLUCOSE UA (BEAKER) (test xlan=549) Negative Negative KETONES UA (BEAKER) (test xwad=949) Negative Negative BILIRUBIN UA (BEAKER) (test kiua=109) Negative Negative BLOOD UA (BEAKER) (test zbbj=508) Trace Negative NITRITE UA (BEAKER) (test nunp=497) Negative Negative LEUKOCYTE ESTERASE UA (BEAKER) (test dvlk=910) Small Negative UROBILINOGEN UA (BEAKER) (test ipuq=265) 0.2 mg/dL 0.2-1.0 RBC UA (BEAKER) (test cguh=562) < /HPF WBC UA (BEAKER) (test clrh=489) 7 /HPF BACTERIA (BEAKER) (test uikd=979) Rare SQUAMOUS EPITHELIAL (BEAKER) (test xtei=300) 1 /HPF SOURCE(BEAKER) (test wfmn=6927) Urine, Voided [id number] 13:26:00 Test Item Value Reference Range Comments LIPASE (BEAKER) (test dfnq=731) 95 U/L 8-78 RAD, ABDOMEN/KUB, 1 VIEW [id number] 12:43:00Reason for exam:->abdominal painFINAL REPORT Abdomen one [...] [employer] Verified Date/Time: 11/15/2017 12:43:04 Reading Location: [facility] Radiology Reading Room CBC W/PLT COUNT & AUTO [id number] 10:00:00 Test Item Value Reference Range Comments WHITE BLOOD CELL COUNT (BEAKER) (test ozeg=465) 18.8 K/ L 3.5-10.5 RED BLOOD CELL COUNT (BEAKER) (test hhyy=305) 1.83 M/ L 3.93-5.22 HEMOGLOBIN (BEAKER) (test qqrb=264) 5.4 GM/DL 11.2-15.7 HEMATOCRIT (BEAKER) (test utvg=771) 16.7 % 34.1-44.9 MEAN CORPUSCULAR VOLUME (BEAKER) (test gsoa=195) 91.3 fL 79.4-94.8 MEAN CORPUSCULAR HEMOGLOBIN (BEAKER) (test 29.5 pg 25.6-32.2 pdim=190) MEAN CORPUSCULAR HEMOGLOBIN CONC (BEAKER) (test 32.3 GM/DL 32.2-35.5 ehzv=761) RED CELL DISTRIBUTION WIDTH (BEAKER) (test 21.7 % 11.7-14.4 xfbe=945) PLATELET COUNT (BEAKER) (test sbxc=236) 340 K/CU MM 150-450 MEAN PLATELET VOLUME (BEAKER) (test adbh=353) 11.3 fL 9.4-12.3 NUCLEATED RED BLOOD CELLS (BEAKER) (test 2 /100 WBC 0-0 hvcm=094) NEUTROPHILS RELATIVE PERCENT (BEAKER) (test 65 % jdlq=939) LYMPHOCYTES RELATIVE PERCENT (BEAKER) (test 23 % vgvv=086) MONOCYTES RELATIVE PERCENT (BEAKER) (test 10 % rbij=957) EOSINOPHILS RELATIVE PERCENT (BEAKER) (test 1 % tplg=403) BASOPHILS RELATIVE PERCENT (BEAKER) (test 0 % irkh=143) NEUTROPHILS ABSOLUTE COUNT (BEAKER) (test 12.25 K/ L 1.56-6.13 kxro=142) LYMPHOCYTES ABSOLUTE COUNT (BEAKER) (test 4.31 K/ L 1.18-3.74 xwmr=270) MONOCYTES ABSOLUTE COUNT (BEAKER) (test 1.88 K/ L 0.24-0.36 lxby=173) EOSINOPHILS ABSOLUTE COUNT (BEAKER) (test 0.26 K/ L 0.04-0.36 trty=236) BASOPHILS ABSOLUTE COUNT (BEAKER) (test 0.02 K/ L 0.01-0.08 zgrn=057) IMMATURE GRANULOCYTES-RELATIVE PERCENT (BEAKER) 1 % 0-1 (test lspa=1628) (MANUAL DIFFERENTIAL)2017-11-15 10:00:00 Test Item Value Reference Range Comments TOTAL COUNTED (BEAKER) (test ehhe=2009) ATYPICAL LYMPHS(BEAKER) (test klbt=8157) Present LARGE PLT(BEAKER) (test huvg=4528) Present HYPOCHROMIA (BEAKER) (test eomq=362) 1+ few POLYCHROMATOPHILLIC RBCS(BEAKER) (test soyd=219) 1+ few SICKLE CELLS (BEAKER) (test mnxy=894) 1+ few TARGET CELLS (BEAKER) (test uuvi=174) 1+ few U/S, ENDOVAGINAL (EV)2017-11-15 09:03:00Reason for [...] MDReport Verified Date/Time: 2017 09:03:15 Reading Location: [facility] [id number] Ultrasound Reading Room CBC W/ PLT COUNT & AUTO [id number] 08:32:00 Test Item Value Reference Range Comments WHITE BLOOD CELL COUNT (BEAKER) (test tcoy=183) 19.8 K/ L 3.5-10.5 RED BLOOD CELL COUNT (BEAKER) (test vrfk=897) 1.89 M/ L 3.93-5.22 HEMOGLOBIN (BEAKER) (test dpex=747) 5.6 GM/DL 11.2-15.7 HEMATOCRIT (BEAKER) (test tyje=445) 17.2 % 34.1-44.9 MEAN CORPUSCULAR VOLUME (BEAKER) (test pwtx=496) 91.0 fL 79.4-94.8 MEAN CORPUSCULAR HEMOGLOBIN (BEAKER) (test 29.6 pg 25.6-32.2 klvf=675) MEAN CORPUSCULAR HEMOGLOBIN CONC (BEAKER) (test 32.6 GM/DL 32.2-35.5 znwl=632) RED CELL DISTRIBUTION WIDTH (BEAKER) (test 21.4 % 11.7-14.4 wgct=851) PLATELET COUNT (BEAKER) (test bilm=630) 366 K/CU MM 150-450 MEAN PLATELET VOLUME (BEAKER) (test jzmc=035) 11.6 fL 9.4-12.3 NUCLEATED RED BLOOD CELLS (BEAKER) (test 2 /100 WBC 0-0 lbvu=449) NEUTROPHILS RELATIVE PERCENT (BEAKER) (test 70 % ikcj=118) LYMPHOCYTES RELATIVE PERCENT (BEAKER) (test 18 % vkwu=787) MONOCYTES RELATIVE PERCENT (BEAKER) (test 10 % odtn=691) EOSINOPHILS RELATIVE PERCENT (BEAKER) (test 1 % dfpo=512) BASOPHILS RELATIVE PERCENT (BEAKER) (test 0 % ovdo=978) NEUTROPHILS ABSOLUTE COUNT (BEAKER) (test 13.93 K/ L 1.56-6.13 ltma=355) LYMPHOCYTES ABSOLUTE COUNT (BEAKER) (test 3.51 K/ L 1.18-3.74 akts=359) MONOCYTES ABSOLUTE COUNT (BEAKER) (test 2.03 K/ L 0.24-0.36 iyyc=545) EOSINOPHILS ABSOLUTE COUNT (BEAKER) (test 0.23 K/ L 0.04-0.36 fasm=551) BASOPHILS ABSOLUTE COUNT (BEAKER) (test 0.02 K/ L 0.01-0.08 hqtg=311) IMMATURE GRANULOCYTES-RELATIVE PERCENT (BEAKER) 0 % 0-1 (test nevl=4380) [id number] 06:16:00 Test Item Value Reference Range Comments PHOSPHORUS (BEAKER) (test qhyi=153) 4.6 mg/dL 2.3-4.7 [id number] 06:16:00 Test Item Value Reference Range Comments MAGNESIUM (BEAKER) (test iphb=126) 1.6 mg/dL 1.6-2.6 BASIC METABOLIC [id number] 06:16:00 Test Item Value Reference Range Comments SODIUM (BEAKER) (test 139 meq/L 136-145 qehk=825) POTASSIUM (BEAKER) (test 3.9 meq/L 3.5-5.1 pqdb=363) CHLORIDE (BEAKER) (test 97 meq/L 98-107 uokv=867) CO2 (BEAKER) (test 33 meq/L 22-29 fwbk=988) BLOOD UREA NITROGEN 24 mg/dL 7-21 (BEAKER) (test aevz=967) CREATININE (BEAKER) (test 1.15 mg/dL 0.57-1.25 mxlu=084) GLUCOSE RANDOM (BEAKER) 104 mg/dL 70-105 (test eqqb=739) CALCIUM (BEAKER) (test 9.1 mg/dL 8.4-10.2 jygm=885) EGFR (BEAKER) (test 64 mL/min/1.73 sq m ESTIMATED GFR IS NOT opkg=2683) ACCURATE CREATININE CLEARANCE IN PREDICTING GLOMERULAR FILTRATION RATE. ESTIMATED GFR IS NOT APPLICABLE FOR DIALYSIS PATIENTS. HEPATIC FUNCTION [id number] 06:16:00 Test Item Value Reference Range Comments TOTAL PROTEIN (BEAKER) (test uvad=303) 8.2 gm/dL 6.0-8.3 ALBUMIN (BEAKER) (test afgd=8411) 2.9 g/dL 3.5-5.0 BILIRUBIN TOTAL (BEAKER) (test vgfp=716) 1.1 mg/dL 0.2-1.2 BILIRUBIN DIRECT (BEAKER) (test uulf=310) 0.5 mg/dL 0.1-0.5 ALKALINE PHOSPHATASE (BEAKER) (test iqem=547) 164 U/L 40-150 AST (SGOT) (BEAKER) (test kqof=388) 76 U/L 5-34 ALT (SGPT) (BEAKER) (test kbmm=586) 34 U/L 6-55 CALCIUM, [id number] 06:00:00 Test Item Value Reference Range Comments CALCIUM IONIZED (BEAKER) (test jfls=814) 0.93 mmol/L 1.12-1.27 PH, BLOOD (BEAKER) (test xcum=4906) 7.52 URINALYSIS W/ [id number] 18:32:00 Test Item Value Reference Range Comments COLOR (BEAKER) (test tspe=337) Light Yellow CLARITY (BEAKER) (test yrjw=433) Clear SPECIFIC GRAVITY UA (BEAKER) (test etyh=793) 1.006 1.001-1.035 PH UA (BEAKER) (test qofx=342) 7.0 5.0-8.0 PROTEIN UA (BEAKER) (test bbtp=714) Negative Negative GLUCOSE UA (BEAKER) (test gzmv=326) Negative Negative KETONES UA (BEAKER) (test qavv=644) Negative Negative BILIRUBIN UA (BEAKER) (test ytxn=320) Negative Negative BLOOD UA (BEAKER) (test atve=621) Trace Negative NITRITE UA (BEAKER) (test xday=266) Negative Negative LEUKOCYTE ESTERASE UA (BEAKER) (test vegp=536) Small Negative UROBILINOGEN UA (BEAKER) (test fuvw=881) 0.2 mg/dL 0.2-1.0 RBC UA (BEAKER) (test camt=174) 1 /HPF WBC UA (BEAKER) (test laps=965) 7 /HPF BACTERIA (BEAKER) (test smvx=489) Rare MUCUS (BEAKER) (test uhfr=2815) Rare SQUAMOUS EPITHELIAL (BEAKER) (test reqo=774) 4 /HPF SOURCE(BEAKER) (test zvbg=5241) Urine, Voided CALCIUM, [id number] 07:19:00 Test Item Value Reference Range Comments CALCIUM IONIZED (BEAKER) (test huxl=953) 1.03 mmol/L 1.12-1.27 PH, BLOOD (BEAKER) (test vqgf=2522) 7.40 CBC W/PLT COUNT & AUTO [id number] 06:26:00 Test Item Value Reference Range Comments WHITE BLOOD CELL COUNT (BEAKER) (test fwyi=468) 18.5 K/ L 3.5-10.5 RED BLOOD CELL COUNT (BEAKER) (test trty=484) 2.02 M/ L 3.93-5.22 HEMOGLOBIN (BEAKER) (test ltjs=619) 6.0 GM/DL 11.2-15.7 HEMATOCRIT (BEAKER) (test uykx=571) 18.5 % 34.1-44.9 MEAN CORPUSCULAR VOLUME (BEAKER) (test hsjz=941) 91.6 fL 79.4-94.8 MEAN CORPUSCULAR HEMOGLOBIN (BEAKER) (test 29.7 pg 25.6-32.2 jqyk=409) MEAN CORPUSCULAR HEMOGLOBIN CONC (BEAKER) (test 32.4 GM/DL 32.2-35.5 eqte=554) RED CELL DISTRIBUTION WIDTH (BEAKER) (test 21.9 % 11.7-14.4 sqxq=336) PLATELET COUNT (BEAKER) (test wjfc=405) 337 K/CU MM 150-450 MEAN PLATELET VOLUME (BEAKER) (test loou=757) 11.7 fL 9.4-12.3 NUCLEATED RED BLOOD CELLS (BEAKER) (test 4 /100 WBC 0-0 yghg=464) NEUTROPHILS RELATIVE PERCENT (BEAKER) (test 76 % tqfi=229) LYMPHOCYTES RELATIVE PERCENT (BEAKER) (test 16 % rndn=476) MONOCYTES RELATIVE PERCENT (BEAKER) (test 6 % xsbl=278) EOSINOPHILS RELATIVE PERCENT (BEAKER) (test 1 % egsu=465) BASOPHILS RELATIVE PERCENT (BEAKER) (test 0 % klzf=281) NEUTROPHILS ABSOLUTE COUNT (BEAKER) (test 13.98 K/ L 1.56-6.13 ijqx=879) LYMPHOCYTES ABSOLUTE COUNT (BEAKER) (test 3.02 K/ L 1.18-3.74 eglm=922) MONOCYTES ABSOLUTE COUNT (BEAKER) (test 1.13 K/ L 0.24-0.36 unef=326) EOSINOPHILS ABSOLUTE COUNT (BEAKER) (test 0.09 K/ L 0.04-0.36 syjl=631) BASOPHILS ABSOLUTE COUNT (BEAKER) (test 0.05 K/ L 0.01-0.08 osbw=306) IMMATURE GRANULOCYTES-RELATIVE PERCENT (BEAKER) 1 % 0-1 (test kbnv=1893) [id number] 06:21:00 Test Item Value Reference Range Comments PHOSPHORUS (BEAKER) (test hiql=684) 4.3 mg/dL 2.3-4.7 [id number] 06:21:00 Test Item Value Reference Range Comments MAGNESIUM (BEAKER) (test qamg=773) 2.1 mg/dL 1.6-2.6 BASIC METABOLIC [id number] 06:21:00 Test Item Value Reference Range Comments SODIUM (BEAKER) (test 139 meq/L 136-145 ezkf=785) POTASSIUM (BEAKER) (test 4.0 meq/L 3.5-5.1 vjbl=415) CHLORIDE (BEAKER) (test 99 meq/L 98-107 jgsx=664) CO2 (BEAKER) (test 31 meq/L 22-29 gsgq=213) BLOOD UREA NITROGEN 23 mg/dL 7-21 (BEAKER) (test tiqy=745) CREATININE (BEAKER) (test 1.29 mg/dL 0.57-1.25 rtuk=204) GLUCOSE RANDOM (BEAKER) 116 mg/dL 70-105 (test dpst=774) CALCIUM (BEAKER) (test 8.8 mg/dL 8.4-10.2 shep=754) EGFR (BEAKER) (test 56 mL/min/1.73 sq m ESTIMATED GFR IS NOT pexv=8091) ACCURATE CREATININE CLEARANCE IN PREDICTING GLOMERULAR FILTRATION RATE. ESTIMATED GFR IS NOT APPLICABLE FOR DIALYSIS PATIENTS. B-TYPE NATRIURETIC FACTOR (BNP)2017-11-13 07:27:00 Test Item Value Reference Range Comments B-TYPE NATRIURETIC PEPTIDE (BEAKER) (test 166 pg/mL 0-100 gzqg=378) [id number] 07:26:00 Test Item Value Reference Range Comments PHOSPHORUS (BEAKER) (test hsxg=723) 4.6 mg/dL 2.3-4.7 [id number] 07:26:00 Test Item Value Reference Range Comments MAGNESIUM (BEAKER) (test wayp=993) 1.6 mg/dL 1.6-2.6 BASIC METABOLIC [id number] 07:26:00 Test Item Value Reference Range Comments SODIUM (BEAKER) (test 139 meq/L 136-145 fnyz=309) POTASSIUM (BEAKER) (test 3.5 meq/L 3.5-5.1 wfnf=852) CHLORIDE (BEAKER) (test 101 meq/L 98-107 agpj=014) CO2 (BEAKER) (test 32 meq/L 22-29 lhjc=602) BLOOD UREA NITROGEN 14 mg/dL 7-21 (BEAKER) (test eqer=170) CREATININE (BEAKER) (test 1.09 mg/dL 0.57-1.25 eohh=790) GLUCOSE RANDOM (BEAKER) 92 mg/dL 70-105 (test caoi=390) CALCIUM (BEAKER) (test 8.5 mg/dL 8.4-10.2 gxjp=631) EGFR (BEAKER) (test 68 mL/min/1.73 sq m ESTIMATED GFR IS NOT rems=7129) ACCURATE CREATININE CLEARANCE IN PREDICTING GLOMERULAR FILTRATION RATE. ESTIMATED GFR IS NOT APPLICABLE FOR DIALYSIS PATIENTS. CBC W/PLT COUNT & AUTO [id number] 07:23:00 Test Item Value Reference Range Comments WHITE BLOOD CELL COUNT (BEAKER) (test inlx=131) 18.4 K/ L 3.5-10.5 RED BLOOD CELL COUNT (BEAKER) (test sjzq=113) 2.03 M/ L 3.93-5.22 HEMOGLOBIN (BEAKER) (test fzhr=720) 6.0 GM/DL 11.2-15.7 HEMATOCRIT (BEAKER) (test wcbn=223) 18.8 % 34.1-44.9 MEAN CORPUSCULAR VOLUME (BEAKER) (test luxt=420) 92.6 fL 79.4-94.8 MEAN CORPUSCULAR HEMOGLOBIN (BEAKER) (test 29.6 pg 25.6-32.2 tuby=488) MEAN CORPUSCULAR HEMOGLOBIN CONC (BEAKER) (test 31.9 GM/DL 32.2-35.5 awdh=289) RED CELL DISTRIBUTION WIDTH (BEAKER) (test 22.9 % 11.7-14.4 wlzc=548) PLATELET COUNT (BEAKER) (test qykc=519) 302 K/CU MM 150-450 MEAN PLATELET VOLUME (BEAKER) (test bnjx=051) 11.3 fL 9.4-12.3 NUCLEATED RED BLOOD CELLS (BEAKER) (test 7 /100 WBC 0-0 aplk=162) NEUTROPHILS RELATIVE PERCENT (BEAKER) (test 74 % pwlb=518) LYMPHOCYTES RELATIVE PERCENT (BEAKER) (test 18 % cdrz=124) MONOCYTES RELATIVE PERCENT (BEAKER) (test 7 % qrjz=172) EOSINOPHILS RELATIVE PERCENT (BEAKER) (test 0 % xrof=950) BASOPHILS RELATIVE PERCENT (BEAKER) (test 0 % rgad=714) NEUTROPHILS ABSOLUTE COUNT (BEAKER) (test 13.58 K/ L 1.56-6.13 xxxj=766) LYMPHOCYTES ABSOLUTE COUNT (BEAKER) (test 3.24 K/ L 1.18-3.74 cznv=827) MONOCYTES ABSOLUTE COUNT (BEAKER) (test 1.23 K/ L 0.24-0.36 drfm=333) EOSINOPHILS ABSOLUTE COUNT (BEAKER) (test 0.07 K/ L 0.04-0.36 cchh=137) BASOPHILS ABSOLUTE COUNT (BEAKER) (test 0.05 K/ L 0.01-0.08 zauv=148) IMMATURE GRANULOCYTES-RELATIVE PERCENT (BEAKER) 1 % 0-1 (test pwgv=1273) CALCIUM, [id number] 07:08:00 Test Item Value Reference Range Comments CALCIUM IONIZED (BEAKER) (test leph=913) 1.03 mmol/L 1.12-1.27 PH, BLOOD (BEAKER) (test sdxk=2585) 7.38 CBC W/PLT COUNT & AUTO [id number] 08:23:00 Test Item Value Reference Range Comments WHITE BLOOD CELL COUNT (BEAKER) (test wuxc=986) 20.4 K/ L 3.5-10.5 RED BLOOD CELL COUNT (BEAKER) (test isxz=016) 2.08 M/ L 3.93-5.22 HEMOGLOBIN (BEAKER) (test emtv=431) 6.4 GM/DL 11.2-15.7 HEMATOCRIT (BEAKER) (test hgrx=910) 19.7 % 34.1-44.9 MEAN CORPUSCULAR VOLUME (BEAKER) (test qvnj=496) 94.7 fL 79.4-94.8 MEAN CORPUSCULAR HEMOGLOBIN (BEAKER) (test 30.8 pg 25.6-32.2 javi=589) MEAN CORPUSCULAR HEMOGLOBIN CONC (BEAKER) (test 32.5 GM/DL 32.2-35.5 expm=252) RED CELL DISTRIBUTION WIDTH (BEAKER) (test 24.3 % 11.7-14.4 osbp=850) PLATELET COUNT (BEAKER) (test voel=754) 290 K/CU MM 150-450 MEAN PLATELET VOLUME (BEAKER) (test pwvx=681) 11.5 fL 9.4-12.3 NUCLEATED RED BLOOD CELLS (BEAKER) (test 19 /100 WBC 0-0 ocaz=770) NEUTROPHILS RELATIVE PERCENT (BEAKER) (test 75 % bjeg=320) LYMPHOCYTES RELATIVE PERCENT (BEAKER) (test 16 % nfkp=559) MONOCYTES RELATIVE PERCENT (BEAKER) (test 8 % kmby=278) EOSINOPHILS RELATIVE PERCENT (BEAKER) (test 0 % tauf=057) BASOPHILS RELATIVE PERCENT (BEAKER) (test 0 % onpv=302) NEUTROPHILS ABSOLUTE COUNT (BEAKER) (test 15.32 K/ L 1.56-6.13 ymzf=901) LYMPHOCYTES ABSOLUTE COUNT (BEAKER) (test 3.24 K/ L 1.18-3.74 iwxl=077) MONOCYTES ABSOLUTE COUNT (BEAKER) (test 1.61 K/ L 0.24-0.36 bxbs=228) EOSINOPHILS ABSOLUTE COUNT (BEAKER) (test 0.05 K/ L 0.04-0.36 dagi=211) BASOPHILS ABSOLUTE COUNT (BEAKER) (test 0.04 K/ L 0.01-0.08 uxui=707) IMMATURE GRANULOCYTES-RELATIVE PERCENT (BEAKER) 0 % 0-1 (test euvq=6587) (MANUAL DIFFERENTIAL)2017-11-12 08:23:00 Test Item Value Reference Range Comments TOTAL COUNTED (BEAKER) (test bsoe=0943) WBC MORPHOLOGY (BEAKER) (test nwuj=091) Normal LARGE PLT(BEAKER) (test qrnm=7775) Present HYPOCHROMIA (BEAKER) (test yvxd=374) 1+ few POLYCHROMATOPHILLIC RBCS(BEAKER) (test yirj=934) 1+ few SICKLE CELLS (BEAKER) (test fose=967) 1+ few TARGET CELLS (BEAKER) (test aetn=071) 1+ few [id number] 08:11:00 Test Item Value Reference Range Comments PHOSPHORUS (BEAKER) (test rhup=211) 4.3 mg/dL 2.3-4.7 [id number] 08:11:00 Test Item Value Reference Range Comments MAGNESIUM (BEAKER) (test vxhl=554) 1.3 mg/dL 1.6-2.6 BASIC METABOLIC [id number] 08:11:00 Test Item Value Reference Range Comments SODIUM (BEAKER) (test 140 meq/L 136-145 aiaz=003) POTASSIUM (BEAKER) (test 3.4 meq/L 3.5-5.1 bbcr=815) CHLORIDE (BEAKER) (test 103 meq/L 98-107 vmao=500) CO2 (BEAKER) (test 27 meq/L 22-29 eufl=570) BLOOD UREA NITROGEN 15 mg/dL 7-21 (BEAKER) (test mvcq=449) CREATININE (BEAKER) (test 1.10 mg/dL 0.57-1.25 pzfa=014) GLUCOSE RANDOM (BEAKER) 91 mg/dL 70-105 (test yguo=873) CALCIUM (BEAKER) (test 8.5 mg/dL 8.4-10.2 enau=419) EGFR (BEAKER) (test 67 mL/min/1.73 sq m ESTIMATED GFR IS NOT uorz=3156) ACCURATE CREATININE CLEARANCE IN PREDICTING GLOMERULAR FILTRATION RATE. ESTIMATED GFR IS NOT APPLICABLE FOR DIALYSIS PATIENTS. CALCIUM, [id number] 07:19:00 Test Item Value Reference Range Comments CALCIUM IONIZED (BEAKER) (test erks=613) 0.98 mmol/L 1.12-1.27 PH, BLOOD (BEAKER) (test njxe=0885) 7.39 BLOOD [id number] 00:00:00 Test Item Value Reference Range Comments CULTURE (BEAKER) (test eoyh=5612) No growth in 5 days CBC W/PLT COUNT & AUTO [id number] 13:18:00 Test Item Value Reference Range Comments WHITE BLOOD CELL COUNT (BEAKER) (test sadq=375) 20.7 K/ L 3.5-10.5 RED BLOOD CELL COUNT (BEAKER) (test bflb=793) 2.12 M/ L 3.93-5.22 HEMOGLOBIN (BEAKER) (test bznc=956) 6.7 GM/DL 11.2-15.7 HEMATOCRIT (BEAKER) (test wyjb=031) 20.4 % 34.1-44.9 MEAN CORPUSCULAR VOLUME (BEAKER) (test glwy=588) 96.2 fL 79.4-94.8 MEAN CORPUSCULAR HEMOGLOBIN (BEAKER) (test 31.6 pg 25.6-32.2 bpta=368) MEAN CORPUSCULAR HEMOGLOBIN CONC (BEAKER) (test 32.8 GM/DL 32.2-35.5 cawr=637) RED CELL DISTRIBUTION WIDTH (BEAKER) (test 25.9 % 11.7-14.4 thde=294) PLATELET COUNT (BEAKER) (test snip=630) 262 K/CU MM 150-450 MEAN PLATELET VOLUME (BEAKER) (test uizx=454) 11.2 fL 9.4-12.3 NUCLEATED RED BLOOD CELLS (BEAKER) (test 40 /100 WBC 0-0 bskd=378) NEUTROPHILS RELATIVE PERCENT (BEAKER) (test 76 % hqlx=287) LYMPHOCYTES RELATIVE PERCENT (BEAKER) (test 16 % cuoa=213) MONOCYTES RELATIVE PERCENT (BEAKER) (test 8 % iopj=321) EOSINOPHILS RELATIVE PERCENT (BEAKER) (test 0 % akot=296) BASOPHILS RELATIVE PERCENT (BEAKER) (test 0 % yomz=069) NEUTROPHILS ABSOLUTE COUNT (BEAKER) (test 15.60 K/ L 1.56-6.13 sepx=710) LYMPHOCYTES ABSOLUTE COUNT (BEAKER) (test 3.23 K/ L 1.18-3.74 mnoi=293) MONOCYTES ABSOLUTE COUNT (BEAKER) (test 1.54 K/ L 0.24-0.36 muvv=711) EOSINOPHILS ABSOLUTE COUNT (BEAKER) (test 0.02 K/ L 0.04-0.36 ijjc=569) BASOPHILS ABSOLUTE COUNT (BEAKER) (test 0.05 K/ L 0.01-0.08 ldry=581) IMMATURE GRANULOCYTES-RELATIVE PERCENT (BEAKER) 1 % 0-1 (test djxs=2236) (MANUAL DIFFERENTIAL)2017-11-11 13:18:00 Test Item Value Reference Range Comments TOTAL COUNTED (BEAKER) (test nbss=4832) WBC MORPHOLOGY (BEAKER) (test tvxr=351) Normal LARGE PLT(BEAKER) (test efls=8799) Present POLYCHROMATOPHILLIC RBCS(BEAKER) (test vipw=633) 1+ few SICKLE CELLS (BEAKER) (test zzow=073) 1+ few TARGET CELLS (BEAKER) (test luvz=820) 1+ few [id number] 08:05:00 Test Item Value Reference Range Comments PHOSPHORUS (BEAKER) (test jrsx=597) 5.0 mg/dL 2.3-4.7 [id number] 08:05:00 Test Item Value Reference Range Comments MAGNESIUM (BEAKER) (test dklf=268) 1.6 mg/dL 1.6-2.6 BASIC METABOLIC [id number] 08:05:00 Test Item Value Reference Range Comments SODIUM (BEAKER) (test 140 meq/L 136-145 rqfb=577) POTASSIUM (BEAKER) (test 3.7 meq/L 3.5-5.1 fxpu=972) CHLORIDE (BEAKER) (test 107 meq/L 98-107 bxqa=404) CO2 (BEAKER) (test 24 meq/L 22-29 exoa=634) BLOOD UREA NITROGEN 19 mg/dL 7-21 (BEAKER) (test ifgu=550) CREATININE (BEAKER) (test 1.23 mg/dL 0.57-1.25 vzdr=842) GLUCOSE RANDOM (BEAKER) 96 mg/dL 70-105 (test aacb=837) CALCIUM (BEAKER) (test 8.5 mg/dL 8.4-10.2 mkzi=375) EGFR (BEAKER) (test 59 mL/min/1.73 sq m ESTIMATED GFR IS NOT vmms=2159) ACCURATE CREATININE CLEARANCE IN PREDICTING GLOMERULAR FILTRATION RATE. ESTIMATED GFR IS NOT APPLICABLE FOR DIALYSIS PATIENTS. CALCIUM, [id number] 06:38:00 Test Item Value Reference Range Comments CALCIUM IONIZED (BEAKER) (test ioxf=579) 1.07 mmol/L 1.12-1.27 PH, BLOOD (BEAKER) (test jjan=7546) 7.31 CBC W/PLT COUNT & AUTO [id number] 14:53:00 Test Item Value Reference Range Comments WHITE BLOOD CELL COUNT (BEAKER) (test qjds=714) 21.8 K/ L 3.5-10.5 RED BLOOD CELL COUNT (BEAKER) (test nqbi=738) 2.17 M/ L 3.93-5.22 HEMOGLOBIN (BEAKER) (test vjsp=661) 6.8 GM/DL 11.2-15.7 HEMATOCRIT (BEAKER) (test iatu=504) 21.3 % 34.1-44.9 MEAN CORPUSCULAR VOLUME (BEAKER) (test dkxp=166) 98.2 fL 79.4-94.8 MEAN CORPUSCULAR HEMOGLOBIN (BEAKER) (test 31.3 pg 25.6-32.2 ysoo=362) MEAN CORPUSCULAR HEMOGLOBIN CONC (BEAKER) (test 31.9 GM/DL 32.2-35.5 kzat=229) RED CELL DISTRIBUTION WIDTH (BEAKER) (test 27.6 % 11.7-14.4 gunh=671) PLATELET COUNT (BEAKER) (test bzuv=171) 244 K/CU MM 150-450 MEAN PLATELET VOLUME (BEAKER) (test jrob=582) 11.4 fL 9.4-12.3 NUCLEATED RED BLOOD CELLS (BEAKER) (test 80 /100 WBC 0-0 myao=420) NEUTROPHILS RELATIVE PERCENT (BEAKER) (test 82 % tghi=542) LYMPHOCYTES RELATIVE PERCENT (BEAKER) (test 7 % khoi=067) MONOCYTES RELATIVE PERCENT (BEAKER) (test 10 % iczx=772) EOSINOPHILS RELATIVE PERCENT (BEAKER) (test 0 % sdjh=707) BASOPHILS RELATIVE PERCENT (BEAKER) (test 0 % csog=908) NEUTROPHILS ABSOLUTE COUNT (BEAKER) (test 17.85 K/ L 1.56-6.13 hwhj=732) LYMPHOCYTES ABSOLUTE COUNT (BEAKER) (test 1.60 K/ L 1.18-3.74 tjlh=988) MONOCYTES ABSOLUTE COUNT (BEAKER) (test 2.14 K/ L 0.24-0.36 rcdz=097) EOSINOPHILS ABSOLUTE COUNT (BEAKER) (test 0.03 K/ L 0.04-0.36 fafn=725) BASOPHILS ABSOLUTE COUNT (BEAKER) (test 0.03 K/ L 0.01-0.08 jpks=471) IMMATURE GRANULOCYTES-RELATIVE PERCENT (BEAKER) 1 % 0-1 (test qbzd=0516) (MANUAL DIFFERENTIAL)2017-11-10 14:53:00 Test Item Value Reference Range Comments TOTAL COUNTED (BEAKER) (test qivo=2865) WBC MORPHOLOGY (BEAKER) (test mkgh=423) Normal LARGE PLT(BEAKER) (test mxkn=8720) Present SCHISTOCYTES (BEAKER) (test gnvq=322) 1+ few ACANTHOCYTES (BEAKER) (test yybo=525) 1+ few ANISOCYTOSIS (BEAKER) (test ecra=695) 2+ moderate HYPOCHROMIA (BEAKER) (test nhlx=676) 2+ moderate MACROCYTES (BEAKER) (test ejnf=762) 3+ many MICROCYTES (BEAKER) (test avlx=024) 2+ moderate OVALOCYTES (BEAKER) (test livq=744) 1+ few POIKILOCYTES (BEAKER) (test xtuf=004) 3+ many POLYCHROMATOPHILLIC RBCS(BEAKER) (test wkoh=553) 2+ moderate SICKLE CELLS (BEAKER) (test jrjt=126) 2+ moderate TARGET CELLS (BEAKER) (test tfxe=635) 1+ few BASIC METABOLIC [id number] 08:54:00 Test Item Value Reference Range Comments SODIUM (BEAKER) (test 140 meq/L 136-145 nfng=241) POTASSIUM (BEAKER) (test 4.0 meq/L 3.5-5.1 duqg=753) CHLORIDE (BEAKER) (test 109 meq/L 98-107 byhc=080) CO2 (BEAKER) (test 19 meq/L 22-29 ffvv=651) BLOOD UREA NITROGEN 21 mg/dL 7-21 (BEAKER) (test ifmk=491) CREATININE (BEAKER) (test 1.27 mg/dL 0.57-1.25 gkdf=213) GLUCOSE RANDOM (BEAKER) 122 mg/dL 70-105 (test sdpv=571) CALCIUM (BEAKER) (test 8.6 mg/dL 8.4-10.2 oubs=701) EGFR (BEAKER) (test 57 mL/min/1.73 sq m ESTIMATED GFR IS NOT ugtj=5761) ACCURATE CREATININE CLEARANCE IN PREDICTING GLOMERULAR FILTRATION RATE. ESTIMATED GFR IS NOT APPLICABLE FOR DIALYSIS PATIENTS. [id number] 08:54:00 Test Item Value Reference Range Comments MAGNESIUM (BEAKER) (test yvjw=427) 1.5 mg/dL 1.6-2.6 [id number] 08:54:00 Test Item Value Reference Range Comments PHOSPHORUS (BEAKER) (test thbf=159) 4.5 mg/dL 2.3-4.7 COMPREHENSIVE METABOLIC [id number] 08:54:00 Test Item Value Reference Range Comments TOTAL PROTEIN (BEAKER) 8.2 gm/dL 6.0-8.3 (test pmly=098) ALBUMIN (BEAKER) (test 3.1 g/dL 3.5-5.0 dkua=9025) ALKALINE PHOSPHATASE 154 U/L 40-150 (BEAKER) (test hemy=071) BILIRUBIN TOTAL (BEAKER) 1.4 mg/dL 0.2-1.2 (test sgqm=859) SODIUM (BEAKER) (test 140 meq/L 136-145 vfcr=608) POTASSIUM (BEAKER) (test 4.0 meq/L 3.5-5.1 ibtj=322) CHLORIDE (BEAKER) (test 109 meq/L 98-107 gqdl=273) CO2 (BEAKER) (test 19 meq/L 22-29 ubbk=803) BLOOD UREA NITROGEN 21 mg/dL 7-21 (BEAKER) (test fque=351) CREATININE (BEAKER) (test 1.27 mg/dL 0.57-1.25 ckhg=074) GLUCOSE RANDOM (BEAKER) 122 mg/dL 70-105 (test suhg=325) CALCIUM (BEAKER) (test 8.6 mg/dL 8.4-10.2 hbtl=747) AST (SGOT) (BEAKER) (test 72 U/L 5-34 wdut=064) ALT (SGPT) (BEAKER) (test 50 U/L 6-55 zbjb=625) EGFR (BEAKER) (test 57 mL/min/1.73 sq m ESTIMATED GFR IS NOT zdjx=8186) ACCURATE CREATININE CLEARANCE IN PREDICTING GLOMERULAR FILTRATION RATE. ESTIMATED GFR IS NOT APPLICABLE FOR DIALYSIS PATIENTS. CALCIUM, [id number] 07:21:00 Test Item Value Reference Range Comments CALCIUM IONIZED (BEAKER) (test txpl=266) 1.04 mmol/L 1.12-1.27 PH, BLOOD (BEAKER) (test umgc=4193) 7.39 CBC W/PLT COUNT & AUTO [id number] 12:10:00 Test Item Value Reference Range Comments WHITE BLOOD CELL COUNT (BEAKER) (test gctu=729) 20.8 K/ L 3.5-10.5 RED BLOOD CELL COUNT (BEAKER) (test tybf=269) 2.11 M/ L 3.93-5.22 HEMOGLOBIN (BEAKER) (test jvvl=887) 6.6 GM/DL 11.2-15.7 HEMATOCRIT (BEAKER) (test dsjd=109) 20.4 % 34.1-44.9 MEAN CORPUSCULAR VOLUME (BEAKER) (test sfmz=142) 96.7 fL 79.4-94.8 MEAN CORPUSCULAR HEMOGLOBIN (BEAKER) (test 31.3 pg 25.6-32.2 bjjp=914) MEAN CORPUSCULAR HEMOGLOBIN CONC (BEAKER) (test 32.4 GM/DL 32.2-35.5 sxoo=635) RED CELL DISTRIBUTION WIDTH (BEAKER) (test 27.2 % 11.7-14.4 wvwg=114) PLATELET COUNT (BEAKER) (test qahu=662) 237 K/CU MM 150-450 MEAN PLATELET VOLUME (BEAKER) (test cphg=573) 10.7 fL 9.4-12.3 NUCLEATED RED BLOOD CELLS (BEAKER) (test 98 /100 WBC 0-0 qkja=768) NEUTROPHILS RELATIVE PERCENT (BEAKER) (test 82 % jpyv=668) LYMPHOCYTES RELATIVE PERCENT (BEAKER) (test 6 % ffay=510) MONOCYTES RELATIVE PERCENT (BEAKER) (test 11 % uaks=740) EOSINOPHILS RELATIVE PERCENT (BEAKER) (test 0 % vrtr=907) BASOPHILS RELATIVE PERCENT (BEAKER) (test 0 % gzky=645) NEUTROPHILS ABSOLUTE COUNT (BEAKER) (test 16.91 K/ L 1.56-6.13 ystl=296) LYMPHOCYTES ABSOLUTE COUNT (BEAKER) (test 1.31 K/ L 1.18-3.74 badn=528) MONOCYTES ABSOLUTE COUNT (BEAKER) (test 2.37 K/ L 0.24-0.36 inqw=667) EOSINOPHILS ABSOLUTE COUNT (BEAKER) (test 0.01 K/ L 0.04-0.36 eqpb=619) BASOPHILS ABSOLUTE COUNT (BEAKER) (test 0.05 K/ L 0.01-0.08 cyyr=826) IMMATURE GRANULOCYTES-RELATIVE PERCENT (BEAKER) 1 % 0-1 (test vlxr=1162) (MANUAL DIFFERENTIAL)2017-11-09 12:10:00 Test Item Value Reference Range Comments TOTAL COUNTED (BEAKER) (test ptrk=4075) WBC MORPHOLOGY (BEAKER) (test tovj=773) Normal PLT MORPHOLOGY (BEAKER) (test zuqx=464) Normal ANISOCYTOSIS (BEAKER) (test mlik=225) 2+ moderate MATTHEWS-JOLLY BODIES (BEAKER) (test jjod=540) 1+ few POIKILOCYTES (BEAKER) (test yida=354) 2+ moderate POLYCHROMATOPHILLIC RBCS(BEAKER) (test vulr=346) 1+ few SICKLE CELLS (BEAKER) (test kfjd=739) 2+ moderate TARGET CELLS (BEAKER) (test nofi=553) 1+ few CALCIUM, [id number] 07:44:00 Test Item Value Reference Range Comments CALCIUM IONIZED (BEAKER) (test zafx=395) 1.16 mmol/L 1.12-1.27 PH, BLOOD (BEAKER) (test kwxt=7732) 7.25 B-TYPE NATRIURETIC FACTOR (BNP)2017-11-09 07:43:00 Test Item Value Reference Range Comments B-TYPE NATRIURETIC PEPTIDE (BEAKER) (test 903 pg/mL 0-100 wvgo=357) [id number] 07:27:00 Test Item Value Reference Range Comments PHOSPHORUS (BEAKER) (test pbaz=513) 4.4 mg/dL 2.3-4.7 [id number] 07:27:00 Test Item Value Reference Range Comments MAGNESIUM (BEAKER) (test svfy=812) 1.7 mg/dL 1.6-2.6 COMPREHENSIVE METABOLIC [id number] 07:27:00 Test Item Value Reference Range Comments TOTAL PROTEIN (BEAKER) 7.8 gm/dL 6.0-8.3 (test drak=957) ALBUMIN (BEAKER) (test 3.2 g/dL 3.5-5.0 gzcs=5396) ALKALINE PHOSPHATASE 165 U/L 40-150 (BEAKER) (test ntxu=812) BILIRUBIN TOTAL (BEAKER) 1.3 mg/dL 0.2-1.2 (test epuu=054) SODIUM (BEAKER) (test 143 meq/L 136-145 eddc=403) POTASSIUM (BEAKER) (test 4.2 meq/L 3.5-5.1 cfxk=607) CHLORIDE (BEAKER) (test 112 meq/L 98-107 emhw=199) CO2 (BEAKER) (test 23 meq/L 22-29 nabp=678) BLOOD UREA NITROGEN 29 mg/dL 7-21 (BEAKER) (test pkrm=848) CREATININE (BEAKER) (test 1.54 mg/dL 0.57-1.25 eoir=890) GLUCOSE RANDOM (BEAKER) 108 mg/dL 70-105 (test tceh=748) CALCIUM (BEAKER) (test 9.1 mg/dL 8.4-10.2 gsqp=164) AST (SGOT) (BEAKER) (test 110 U/L 5-34 nltq=035) ALT (SGPT) (BEAKER) (test 64 U/L 6-55 kjxm=255) EGFR (BEAKER) (test 46 mL/min/1.73 sq m ESTIMATED GFR IS NOT ybvd=1110) ACCURATE CREATININE CLEARANCE IN PREDICTING GLOMERULAR FILTRATION RATE. ESTIMATED GFR IS NOT APPLICABLE FOR DIALYSIS PATIENTS. BASIC METABOLIC [id number] 07:27:00 Test Item Value Reference Range Comments SODIUM (BEAKER) (test 143 meq/L 136-145 ajhy=160) POTASSIUM (BEAKER) (test 4.2 meq/L 3.5-5.1 dvod=708) CHLORIDE (BEAKER) (test 112 meq/L 98-107 lvaf=920) CO2 (BEAKER) (test 23 meq/L 22-29 bplp=433) BLOOD UREA NITROGEN 29 mg/dL 7-21 (BEAKER) (test iqdn=812) CREATININE (BEAKER) (test 1.54 mg/dL 0.57-1.25 sgeg=475) GLUCOSE RANDOM (BEAKER) 108 mg/dL 70-105 (test ihkl=744) CALCIUM (BEAKER) (test 9.1 mg/dL 8.4-10.2 mhhm=795) EGFR (BEAKER) (test 46 mL/min/1.73 sq m ESTIMATED GFR IS NOT nlpk=8442) ACCURATE CREATININE CLEARANCE IN PREDICTING GLOMERULAR FILTRATION RATE. ESTIMATED GFR IS NOT APPLICABLE FOR DIALYSIS PATIENTS. RAD, CHEST, 1 VIEW, NON [id number] 20:41:00Reason for exam:->edemaShould this be performed at [...] MDReport Verified Date/Time: 11/08/2017 20:41:24 Reading Location: [address] Reading Room Electronically signed by: CLIFF SALCIDO M.D. on 08:41 PMEOSINOPHIL SMEAR, [id number] 12:49:00 Test Item Value Reference Range Comments EOSINOPHIL SMEAR, URINE (BEAKER) (test No EOS seen No EOS seen jjrr=1876) CBC W/PLT COUNT & AUTO [id number] 10:40:00 Test Item Value Reference Range Comments WHITE BLOOD CELL COUNT (BEAKER) (test rjqq=923) 18.6 K/ L 3.5-10.5 RED BLOOD CELL COUNT (BEAKER) (test ddgh=856) 2.21 M/ L 3.93-5.22 HEMOGLOBIN (BEAKER) (test rkvy=595) 6.8 GM/DL 11.2-15.7 HEMATOCRIT (BEAKER) (test xfmv=238) 20.6 % 34.1-44.9 MEAN CORPUSCULAR VOLUME (BEAKER) (test zrtp=395) 93.2 fL 79.4-94.8 MEAN CORPUSCULAR HEMOGLOBIN (BEAKER) (test 30.8 pg 25.6-32.2 uyaa=071) MEAN CORPUSCULAR HEMOGLOBIN CONC (BEAKER) (test 33.0 GM/DL 32.2-35.5 syuy=708) RED CELL DISTRIBUTION WIDTH (BEAKER) (test 25.5 % 11.7-14.4 rtrw=929) PLATELET COUNT (BEAKER) (test jjxz=597) 255 K/CU MM 150-450 MEAN PLATELET VOLUME (BEAKER) (test gvkr=535) 10.6 fL 9.4-12.3 NUCLEATED RED BLOOD CELLS (BEAKER) (test 87 /100 WBC 0-0 kwhn=098) NEUTROPHILS RELATIVE PERCENT (BEAKER) (test 70 % xpej=361) LYMPHOCYTES RELATIVE PERCENT (BEAKER) (test 14 % djud=789) MONOCYTES RELATIVE PERCENT (BEAKER) (test 14 % qpug=098) EOSINOPHILS RELATIVE PERCENT (BEAKER) (test 0 % bkyg=461) BASOPHILS RELATIVE PERCENT (BEAKER) (test 0 % sqzr=481) NEUTROPHILS ABSOLUTE COUNT (BEAKER) (test 12.98 K/ L 1.56-6.13 pcbk=597) LYMPHOCYTES ABSOLUTE COUNT (BEAKER) (test 2.67 K/ L 1.18-3.74 amyt=684) MONOCYTES ABSOLUTE COUNT (BEAKER) (test 2.65 K/ L 0.24-0.36 tbnh=791) EOSINOPHILS ABSOLUTE COUNT (BEAKER) (test 0.07 K/ L 0.04-0.36 aqae=173) BASOPHILS ABSOLUTE COUNT (BEAKER) (test 0.05 K/ L 0.01-0.08 udwy=725) IMMATURE GRANULOCYTES-RELATIVE PERCENT (BEAKER) 1 % 0-1 (test lfvd=2346) (MANUAL DIFFERENTIAL)2017-11-08 10:40:00 Test Item Value Reference Range Comments TOTAL COUNTED (BEAKER) (test cktx=8304) WBC MORPHOLOGY (BEAKER) (test mfyd=910) Normal LARGE PLT(BEAKER) (test wluv=5940) Present POLYCHROMATOPHILLIC RBCS(BEAKER) (test onjw=637) 2+ moderate SICKLE CELLS (BEAKER) (test crvh=686) 3+ many TARGET CELLS (BEAKER) (test kaeq=229) 1+ few CT, [id number] 08:29:00FINAL REPORT HISTORY : Abdominal pain, unspecified [...] MDReport Verified Date/Time: 11/08/2017 08:29:54 Reading Location: [facility] Reading Room - [place] [id number] Electronically signed by: DAMI QUICK M.D. on11/08/2017 08:29 AMBASIC METABOLIC [id number] 08:14:00 Test Item Value Reference Range Comments SODIUM (BEAKER) (test 141 meq/L 136-145 mylz=844) POTASSIUM (BEAKER) (test 4.4 meq/L 3.5-5.1 iunt=882) CHLORIDE (BEAKER) (test 111 meq/L 98-107 fslg=023) CO2 (BEAKER) (test 17 meq/L 22-29 nsgt=343) BLOOD UREA NITROGEN 37 mg/dL 7-21 (BEAKER) (test rrch=568) CREATININE (BEAKER) (test 2.07 mg/dL 0.57-1.25 vswz=662) GLUCOSE RANDOM (BEAKER) 101 mg/dL 70-105 (test mjxp=174) CALCIUM (BEAKER) (test 8.9 mg/dL 8.4-10.2 zjjm=371) EGFR (BEAKER) (test 32 mL/min/1.73 sq m ESTIMATED GFR IS NOT wwab=8212) ACCURATE CREATININE CLEARANCE IN PREDICTING GLOMERULAR FILTRATION RATE. ESTIMATED GFR IS NOT APPLICABLE FOR DIALYSIS PATIENTS. COMPREHENSIVE METABOLIC [id number] 08:14:00 Test Item Value Reference Range Comments TOTAL PROTEIN (BEAKER) 8.6 gm/dL 6.0-8.3 (test csrm=880) ALBUMIN (BEAKER) (test 3.4 g/dL 3.5-5.0 aweo=5026) ALKALINE PHOSPHATASE 155 U/L 40-150 (BEAKER) (test eqqp=054) BILIRUBIN TOTAL (BEAKER) 1.7 mg/dL 0.2-1.2 (test dlyc=178) SODIUM (BEAKER) (test 141 meq/L 136-145 cqyp=001) POTASSIUM (BEAKER) (test 4.4 meq/L 3.5-5.1 ytde=499) CHLORIDE (BEAKER) (test 111 meq/L 98-107 qhhg=297) CO2 (BEAKER) (test 17 meq/L 22-29 dkqt=195) BLOOD UREA NITROGEN 37 mg/dL 7-21 (BEAKER) (test znhx=431) CREATININE (BEAKER) (test 2.07 mg/dL 0.57-1.25 ennc=744) GLUCOSE RANDOM (BEAKER) 101 mg/dL 70-105 (test dsug=958) CALCIUM (BEAKER) (test 8.9 mg/dL 8.4-10.2 yyon=554) AST (SGOT) (BEAKER) (test 144 U/L 5-34 incj=662) ALT (SGPT) (BEAKER) (test 70 U/L 6-55 vgyp=986) EGFR (BEAKER) (test 32 mL/min/1.73 sq m ESTIMATED GFR IS NOT vdbs=3514) ACCURATE CREATININE CLEARANCE IN PREDICTING GLOMERULAR FILTRATION RATE. ESTIMATED GFR IS NOT APPLICABLE FOR DIALYSIS PATIENTS. PROTEIN, RANDOM [id number] 07:49:00 Test Item Value Reference Range Comments PROTEIN, URINE (BEAKER) (test gmqw=8025) 24 mg/dL 0-14 CREATININE, RANDOM [id number] 07:47:00 Test Item Value Reference Range Comments CREATININE URINE (BEAKER) (test cfur=387) 46.0 mg/dL Reference Range: No NormalsSODIUM, RANDOM [id number] 07:47:00 Test Item Value Reference Range Comments SODIUM URINE (BEAKER) (test wwdr=039) 65 meq/L Reference Range: No NormalsU/S, ABDOMINAL, [id number] 19:58:00Reason for exam:->GRAYSON, abdominal painShould this be [...] [place] Verified Date/Time: 11/07/2017 19:58:17 Reading Location: [address] Consult Reading Room LACTIC ACID, VENOUS, WHOLE [id number] 16:11:00 Test Item Value Reference Range Comments LACTATE BLOOD VENOUS (2) 0.9 mmol/L 0.5-2.2 Specimen slightly hemolyzed (BEAKER) (test fcww=0842) Effective 12/22/2015: Units/Reference Range ChangeNew: 0.5-2.2 mmol/L Previous: 5 -20 mg/dLCBC W/PLT COUNT & AUTO [id number] 10:20:00 Test Item Value Reference Range Comments WHITE BLOOD CELL COUNT (BEAKER) (test ejea=363) 23.2 K/ L 3.5-10.5 RED BLOOD CELL COUNT (BEAKER) (test fcvu=543) 1.84 M/ L 3.93-5.22 HEMOGLOBIN (BEAKER) (test fefy=457) 5.8 GM/DL 11.2-15.7 HEMATOCRIT (BEAKER) (test uepw=819) 17.3 % 34.1-44.9 MEAN CORPUSCULAR VOLUME (BEAKER) (test gmjr=592) 94.0 fL 79.4-94.8 MEAN CORPUSCULAR HEMOGLOBIN (BEAKER) (test 31.5 pg 25.6-32.2 yyrj=780) MEAN CORPUSCULAR HEMOGLOBIN CONC (BEAKER) (test 33.5 GM/DL 32.2-35.5 ctxe=230) RED CELL DISTRIBUTION WIDTH (BEAKER) (test 24.1 % 11.7-14.4 wbcj=270) PLATELET COUNT (BEAKER) (test xicg=224) 249 K/CU MM 150-450 MEAN PLATELET VOLUME (BEAKER) (test hmzk=675) 10.8 fL 9.4-12.3 NUCLEATED RED BLOOD CELLS (BEAKER) (test 48 /100 WBC 0-0 iwvf=511) IMMATURE GRANULOCYTES-RELATIVE PERCENT (BEAKER) 2 % 0-1 (test afkg=4071) (MANUAL DIFFERENTIAL)2017-11-07 10:20:00 Test Item Value Reference Range Comments NEUTROPHILS - REL (DIFF) (BEAKER) (test 68 % iyrm=9615) LYMPHOCYTES - REL (DIFF) (BEAKER) (test 27 % fawx=8785) MONOCYTES - REL (DIFF) (BEAKER) (test rnzy=6049) 5 % EOSINOPHILS - REL (DIFF) (BEAKER) (test 0 % mclb=3956) BASOPHILS - REL (DIFF) (BEAKER) (test ejer=8900) 0 % NEUTROPHILS - ABS (DIFF) (BEAKER) (test 15.78 K/ L 1.80-8.00 pmtx=8238) LYMPHOCYTES - ABS (DIFF) (BEAKER) (test 6.26 K/ L 1.48-4.50 vwpf=9569) MONOCYTES - ABS (DIFF) (BEAKER) (test vegt=0934) 1.16 K/ L 0.00-1.30 EOSINOPHILS - ABS (DIFF) (BEAKER) (test 0.00 K/ L 0.00-0.50 dpvx=4274) BASOPHILS - ABS (DIFF) (BEAKER) (test zlus=0091) 0.00 K/ L 0.00-0.20 TOTAL COUNTED (BEAKER) (test kkaq=7056) 100 MANUAL NRBC PER 100 CELLS (BEAKER) (test 51 /100 WBC 0-0 tyny=2848) WBC MORPHOLOGY (BEAKER) (test ebmb=826) Normal PLT MORPHOLOGY (BEAKER) (test tmwa=903) Normal ANISOCYTOSIS (BEAKER) (test bmqp=010) 3+ many POLYCHROMATOPHILLIC RBCS(BEAKER) (test etyy=749) 2+ moderate SICKLE CELLS (BEAKER) (test rdyl=828) 3+ many TARGET CELLS (BEAKER) (test xavc=270) 1+ few BASIC METABOLIC [id number] 06:28:00 Test Item Value Reference Range Comments SODIUM (BEAKER) (test 132 meq/L 136-145 cmsh=462) POTASSIUM (BEAKER) (test 4.4 meq/L 3.5-5.1 ibhq=265) CHLORIDE (BEAKER) (test 109 meq/L 98-107 qemu=365) CO2 (BEAKER) (test 20 meq/L 22-29 zipv=406) BLOOD UREA NITROGEN 39 mg/dL 7-21 (BEAKER) (test xqap=502) CREATININE (BEAKER) (test 2.20 mg/dL 0.57-1.25 dano=131) GLUCOSE RANDOM (BEAKER) 123 mg/dL 70-105 (test rgev=003) CALCIUM (BEAKER) (test 8.7 mg/dL 8.4-10.2 fdyx=192) EGFR (BEAKER) (test 30 mL/min/1.73 sq m ESTIMATED GFR IS NOT fcgp=0120) ACCURATE CREATININE CLEARANCE IN PREDICTING GLOMERULAR FILTRATION RATE. ESTIMATED GFR IS NOT APPLICABLE FOR DIALYSIS PATIENTS. COMPREHENSIVE METABOLIC [id number] 18:37:00 Test Item Value Reference Range Comments TOTAL PROTEIN (BEAKER) 8.5 gm/dL 6.0-8.3 (test tjws=113) ALBUMIN (BEAKER) (test 3.4 g/dL 3.5-5.0 ulif=1353) ALKALINE PHOSPHATASE 166 U/L 40-150 (BEAKER) (test brvi=830) BILIRUBIN TOTAL (BEAKER) 4.0 mg/dL 0.2-1.2 (test pltd=499) SODIUM (BEAKER) (test 142 meq/L 136-145 oijx=903) POTASSIUM (BEAKER) (test 4.7 meq/L 3.5-5.1 qwti=344) CHLORIDE (BEAKER) (test 110 meq/L 98-107 niri=937) CO2 (BEAKER) (test 22 meq/L 22-29 sloi=231) BLOOD UREA NITROGEN 35 mg/dL 7-21 (BEAKER) (test eshd=036) CREATININE (BEAKER) (test 1.97 mg/dL 0.57-1.25 hsrd=024) GLUCOSE RANDOM (BEAKER) 119 mg/dL 70-105 (test eisv=992) CALCIUM (BEAKER) (test 8.5 mg/dL 8.4-10.2 woxy=483) AST (SGOT) (BEAKER) (test 278 U/L 5-34 llmu=530) ALT (SGPT) (BEAKER) (test 92 U/L 6-55 jddx=104) EGFR (BEAKER) (test 34 mL/min/1.73 sq m ESTIMATED GFR IS NOT zkaa=6305) ACCURATE CREATININE CLEARANCE IN PREDICTING GLOMERULAR FILTRATION RATE. ESTIMATED GFR IS NOT APPLICABLE FOR DIALYSIS PATIENTS. Specimen slightly ictericCBC W/PLT COUNT & AUTO [id number] 14:59 :00 Test Item Value Reference Range Comments WHITE BLOOD CELL COUNT (BEAKER) (test rgew=440) 24.3 K/ L 3.5-10.5 RED BLOOD CELL COUNT (BEAKER) (test qoxe=788) 1.73 M/ L 3.93-5.22 HEMOGLOBIN (BEAKER) (test bbwx=536) 5.5 GM/DL 11.2-15.7 HEMATOCRIT (BEAKER) (test sgjy=165) 16.7 % 34.1-44.9 MEAN CORPUSCULAR VOLUME (BEAKER) (test urxf=176) 96.5 fL 79.4-94.8 MEAN CORPUSCULAR HEMOGLOBIN (BEAKER) (test 31.8 pg 25.6-32.2 zlus=840) MEAN CORPUSCULAR HEMOGLOBIN CONC (BEAKER) (test 32.9 GM/DL 32.2-35.5 nrke=869) RED CELL DISTRIBUTION WIDTH (BEAKER) (test 25.8 % 11.7-14.4 txwm=253) PLATELET COUNT (BEAKER) (test ybze=327) 259 K/CU MM 150-450 MEAN PLATELET VOLUME (BEAKER) (test sjww=890) 11.1 fL 9.4-12.3 NUCLEATED RED BLOOD CELLS (BEAKER) (test 29 /100 WBC 0-0 hmgf=140) IMMATURE GRANULOCYTES-RELATIVE PERCENT (BEAKER) 2 % 0-1 (test hctu=9520) (MANUAL DIFFERENTIAL)2017-11-06 14:59:00 Test Item Value Reference Range Comments NEUTROPHILS - REL (DIFF) (BEAKER) (test 65 % vahn=9177) LYMPHOCYTES - REL (DIFF) (BEAKER) (test 26 % amlr=0702) MONOCYTES - REL (DIFF) (BEAKER) (test fhot=0107) 8 % MYELOCYTES-REL (DIFF) (BEAKER) (test jqdl=4173) 1 % 0-0 NEUTROPHILS - ABS (DIFF) (BEAKER) (test 15.80 K/ L 1.80-8.00 ordn=6144) LYMPHOCYTES - ABS (DIFF) (BEAKER) (test 6.32 K/ L 1.48-4.50 majf=7081) MONOCYTES - ABS (DIFF) (BEAKER) (test bzhk=8664) 1.94 K/ L 0.00-1.30 MYELOCYTES-ABS (DIFF) (BEAKER) (test ljit=1656) 0.24 K/ L 0.00-0.00 TOTAL COUNTED (BEAKER) (test ajuh=6543) 100 MANUAL NRBC PER 100 CELLS (BEAKER) (test 34 /100 WBC 0-0 jeoq=1242) WBC MORPHOLOGY (BEAKER) (test qslr=251) Normal PLT MORPHOLOGY (BEAKER) (test mapu=541) Normal ANISOCYTOSIS (BEAKER) (test iguk=399) 3+ many MATTHEWS-JOLLY BODIES (BEAKER) (test crge=336) Present POIKILOCYTES (BEAKER) (test tlpl=676) 1+ few POLYCHROMATOPHILLIC RBCS(BEAKER) (test jbdb=174) 2+ moderate SICKLE CELLS (BEAKER) (test bhya=425) 3+ many BASIC METABOLIC [id number] 09:37:00 Test Item Value Reference Range Comments SODIUM (BEAKER) (test 139 meq/L 136-145 orzi=664) POTASSIUM (BEAKER) (test 4.5 meq/L 3.5-5.1 kkqm=437) CHLORIDE (BEAKER) (test 107 meq/L 98-107 opbr=066) CO2 (BEAKER) (test 19 meq/L 22-29 gzew=771) BLOOD UREA NITROGEN 27 mg/dL 7-21 (BEAKER) (test wsqu=142) CREATININE (BEAKER) (test 1.37 mg/dL 0.57-1.25 hyup=688) GLUCOSE RANDOM (BEAKER) 124 mg/dL 70-105 (test jcta=943) CALCIUM (BEAKER) (test 8.2 mg/dL 8.4-10.2 nlgr=452) EGFR (BEAKER) (test 52 mL/min/1.73 sq m ESTIMATED GFR IS NOT mlag=8164) ACCURATE CREATININE CLEARANCE IN PREDICTING GLOMERULAR FILTRATION RATE. ESTIMATED GFR IS NOT APPLICABLE FOR DIALYSIS PATIENTS. Specimen slightly ictericURINALYSIS W/ [id number] 06:22:00 Test Item Value Reference Range Comments COLOR (BEAKER) (test wjtk=076) Brown CLARITY (BEAKER) (test ngqf=049) Cloudy SPECIFIC GRAVITY UA (BEAKER) (test 1.015 1.001-1.035 edwq=033) PH UA (BEAKER) (test sjzv=966) 5.5 5.0-8.0 PROTEIN UA (BEAKER) (test fppg=888) 100 mg/dL Negative GLUCOSE UA (BEAKER) (test fhqp=203) Negative Negative KETONES UA (BEAKER) (test gksx=313) Negative Negative BILIRUBIN UA (BEAKER) (test sftq=328) Positive Negative BLOOD UA (BEAKER) (test egkc=481) Large Negative NITRITE UA (BEAKER) (test ifsp=153) Negative Negative LEUKOCYTE ESTERASE UA (BEAKER) (test Trace Negative yepm=278) UROBILINOGEN UA (BEAKER) (test ijul=667) 4.0 mg/dL 0.2-1.0 RBC UA (BEAKER) (test xdzq=490) 0 /HPF WBC UA (BEAKER) (test wqju=923) 27 /HPF MUCUS (BEAKER) (test togq=8840) Few SQUAMOUS EPITHELIAL (BEAKER) (test 11 /HPF gxdf=596) SOURCE(BEAKER) (test ghef=8080) Urine, Clean Catch BASIC METABOLIC [id number] 10:56:00 Test Item Value Reference Range Comments SODIUM (BEAKER) (test 139 meq/L 136-145 ffjv=438) POTASSIUM (BEAKER) (test 4.2 meq/L 3.5-5.1 vhlk=095) CHLORIDE (BEAKER) (test 104 meq/L 98-107 cdyl=587) CO2 (BEAKER) (test 23 meq/L 22-29 ywpu=493) BLOOD UREA NITROGEN 9 mg/dL 7-21 (BEAKER) (test ihdy=671) CREATININE (BEAKER) (test 0.66 mg/dL 0.57-1.25 sgxx=832) GLUCOSE RANDOM (BEAKER) 109 mg/dL 70-105 (test auul=263) CALCIUM (BEAKER) (test 8.6 mg/dL 8.4-10.2 gwyx=709) EGFR (BEAKER) (test 121 mL/min/1.73 sq m ESTIMATED GFR IS NOT wxev=4357) ACCURATE CREATININE CLEARANCE IN PREDICTING GLOMERULAR FILTRATION RATE. ESTIMATED GFR IS NOT APPLICABLE FOR DIALYSIS PATIENTS. Specimen slightly ictericCBC W/PLT COUNT & AUTO [id number] 09:17 :00 Test Item Value Reference Range Comments WHITE BLOOD CELL COUNT (BEAKER) (test euxr=520) 18.2 K/ L 3.5-10.5 RED BLOOD CELL COUNT (BEAKER) (test fsri=037) 2.05 M/ L 3.93-5.22 HEMOGLOBIN (BEAKER) (test wxrs=468) 6.4 GM/DL 11.2-15.7 HEMATOCRIT (BEAKER) (test cuye=922) 19.9 % 34.1-44.9 MEAN CORPUSCULAR VOLUME (BEAKER) (test jqir=972) 97.1 fL 79.4-94.8 MEAN CORPUSCULAR HEMOGLOBIN (BEAKER) (test 31.2 pg 25.6-32.2 cciy=115) MEAN CORPUSCULAR HEMOGLOBIN CONC (BEAKER) (test 32.2 GM/DL 32.2-35.5 otws=272) RED CELL DISTRIBUTION WIDTH (BEAKER) (test 25.4 % 11.7-14.4 ajao=902) PLATELET COUNT (BEAKER) (test quyy=266) 227 K/CU MM 150-450 MEAN PLATELET VOLUME (BEAKER) (test olkm=143) 10.4 fL 9.4-12.3 NUCLEATED RED BLOOD CELLS (BEAKER) (test 18 /100 WBC 0-0 jycl=995) NEUTROPHILS RELATIVE PERCENT (BEAKER) (test 57 % xfbj=676) LYMPHOCYTES RELATIVE PERCENT (BEAKER) (test 24 % omzc=153) MONOCYTES RELATIVE PERCENT (BEAKER) (test 15 % mndb=455) EOSINOPHILS RELATIVE PERCENT (BEAKER) (test 3 % pmgs=547) BASOPHILS RELATIVE PERCENT (BEAKER) (test 0 % cvxe=723) NEUTROPHILS ABSOLUTE COUNT (BEAKER) (test 10.46 K/ L 1.56-6.13 qgob=441) LYMPHOCYTES ABSOLUTE COUNT (BEAKER) (test 4.31 K/ L 1.18-3.74 rxex=889) MONOCYTES ABSOLUTE COUNT (BEAKER) (test 2.72 K/ L 0.24-0.36 ztdk=183) EOSINOPHILS ABSOLUTE COUNT (BEAKER) (test 0.45 K/ L 0.04-0.36 ckpn=389) BASOPHILS ABSOLUTE COUNT (BEAKER) (test 0.07 K/ L 0.01-0.08 znsr=762) IMMATURE GRANULOCYTES-RELATIVE PERCENT (BEAKER) 1 % 0-1 (test akdp=4598) (MANUAL DIFFERENTIAL)2017-11-05 09:17:00 Test Item Value Reference Range Comments TOTAL COUNTED (BEAKER) (test qcsa=1678) WBC MORPHOLOGY (BEAKER) (test bgdx=106) Normal PLT MORPHOLOGY (BEAKER) (test pnzm=556) Normal ANISOCYTOSIS (BEAKER) (test urjt=753) 2+ moderate POLYCHROMATOPHILLIC RBCS(BEAKER) (test xrkh=327) 2+ moderate SICKLE CELLS (BEAKER) (test ulmi=946) 2+ moderate TARGET CELLS (BEAKER) (test fntm=848) 2+ moderate CREATINE KINASE (CK), TOTAL AND [id number] 22:01:00 Test Item Value Reference Range Comments CREATINE KINASE TOTAL (BEAKER) (test 10 U/L 29-200 hyiq=013) CREATINE KINASE-MB (BEAKER) (test 0.1 ng/mL 0.0-6.6 jxxy=846) CREATINE KINASE-MB INDEX (BEAKER) (test 1.0 % Unable to Calculate dmcb=144) CK-MB Reference Range:<6.7 Normal6.7-10.0 Borderline>10.0 AbnormalTROPONIN [id number] 21:16:00 Test Item Value Reference Range Comments TROPONIN I (BEAKER) (test jjpc=460) < ng/mL 0.00-0.03 Troponin I (TnI) levels [...] and persistent tachyarrhythmia.CBC W/PLT COUNT & AUTO [id number] 06:49:00 Test Item Value Reference Range Comments WHITE BLOOD CELL COUNT (BEAKER) (test paau=638) 13.3 K/ L 3.5-10.5 RED BLOOD CELL COUNT (BEAKER) (test dwxn=802) 2.18 M/ L 3.93-5.22 HEMOGLOBIN (BEAKER) (test pamw=165) 6.8 GM/DL 11.2-15.7 HEMATOCRIT (BEAKER) (test fvig=804) 21.5 % 34.1-44.9 MEAN CORPUSCULAR VOLUME (BEAKER) (test sixd=027) 98.6 fL 79.4-94.8 MEAN CORPUSCULAR HEMOGLOBIN (BEAKER) (test 31.2 pg 25.6-32.2 lrsy=680) MEAN CORPUSCULAR HEMOGLOBIN CONC (BEAKER) (test 31.6 GM/DL 32.2-35.5 cziy=328) RED CELL DISTRIBUTION WIDTH (BEAKER) (test 21.1 % 11.7-14.4 elhn=471) PLATELET COUNT (BEAKER) (test flka=818) 192 K/CU MM 150-450 MEAN PLATELET VOLUME (BEAKER) (test njmg=929) 11.4 fL 9.4-12.3 NUCLEATED RED BLOOD CELLS (BEAKER) (test 1 /100 WBC 0-0 rmcv=691) NEUTROPHILS RELATIVE PERCENT (BEAKER) (test 51 % fbjx=835) LYMPHOCYTES RELATIVE PERCENT (BEAKER) (test 30 % lsyl=256) MONOCYTES RELATIVE PERCENT (BEAKER) (test 16 % cgka=546) EOSINOPHILS RELATIVE PERCENT (BEAKER) (test 2 % ielx=596) BASOPHILS RELATIVE PERCENT (BEAKER) (test 0 % phiy=002) NEUTROPHILS ABSOLUTE COUNT (BEAKER) (test 6.84 K/ L 1.56-6.13 xryx=581) LYMPHOCYTES ABSOLUTE COUNT (BEAKER) (test 4.06 K/ L 1.18-3.74 tggf=862) MONOCYTES ABSOLUTE COUNT (BEAKER) (test 2.12 K/ L 0.24-0.36 vfhi=578) EOSINOPHILS ABSOLUTE COUNT (BEAKER) (test 0.26 K/ L 0.04-0.36 ugru=524) BASOPHILS ABSOLUTE COUNT (BEAKER) (test 0.02 K/ L 0.01-0.08 uhvf=885) IMMATURE GRANULOCYTES-RELATIVE PERCENT (BEAKER) 0 % 0-1 (test jirk=6346) BASIC METABOLIC [id number] 07:06:00 Test Item Value Reference Range Comments SODIUM (BEAKER) (test 138 meq/L 136-145 fplm=978) POTASSIUM (BEAKER) (test 4.2 meq/L 3.5-5.1 dkwn=355) CHLORIDE (BEAKER) (test 103 meq/L 98-107 kkpa=352) CO2 (BEAKER) (test 28 meq/L 22-29 ikfh=972) BLOOD UREA NITROGEN 11 mg/dL 7-21 (BEAKER) (test szsf=572) CREATININE (BEAKER) (test 0.55 mg/dL 0.57-1.25 lyld=329) GLUCOSE RANDOM (BEAKER) 95 mg/dL 70-105 (test xpsk=833) CALCIUM (BEAKER) (test 9.5 mg/dL 8.4-10.2 vdcm=442) EGFR (BEAKER) (test 150 mL/min/1.73 sq m ESTIMATED GFR IS NOT hbat=4286) ACCURATE CREATININE CLEARANCE IN PREDICTING GLOMERULAR FILTRATION RATE. ESTIMATED GFR IS NOT APPLICABLE FOR DIALYSIS PATIENTS. CBC W/PLT COUNT & AUTO [id number] 06:48:00 Test Item Value Reference Range Comments WHITE BLOOD CELL COUNT (BEAKER) (test tago=938) 12.8 K/ L 3.5-10.5 RED BLOOD CELL COUNT (BEAKER) (test zlze=212) 2.22 M/ L 3.93-5.22 HEMOGLOBIN (BEAKER) (test mduc=823) 7.2 GM/DL 11.2-15.7 HEMATOCRIT (BEAKER) (test ifxu=806) 21.9 % 34.1-44.9 MEAN CORPUSCULAR VOLUME (BEAKER) (test okem=625) 98.6 fL 79.4-94.8 MEAN CORPUSCULAR HEMOGLOBIN (BEAKER) (test 32.4 pg 25.6-32.2 rsxd=043) MEAN CORPUSCULAR HEMOGLOBIN CONC (BEAKER) (test 32.9 GM/DL 32.2-35.5 fkkg=249) RED CELL DISTRIBUTION WIDTH (BEAKER) (test 21.2 % 11.7-14.4 addl=542) PLATELET COUNT (BEAKER) (test drux=843) 176 K/CU MM 150-450 MEAN PLATELET VOLUME (BEAKER) (test rwuk=651) 11.2 fL 9.4-12.3 NUCLEATED RED BLOOD CELLS (BEAKER) (test 5 /100 WBC 0-0 kemn=475) NEUTROPHILS RELATIVE PERCENT (BEAKER) (test 49 % mkxt=604) LYMPHOCYTES RELATIVE PERCENT (BEAKER) (test 31 % frqu=150) MONOCYTES RELATIVE PERCENT (BEAKER) (test 19 % wsma=278) EOSINOPHILS RELATIVE PERCENT (BEAKER) (test 2 % dbwa=429) BASOPHILS RELATIVE PERCENT (BEAKER) (test 0 % huey=036) NEUTROPHILS ABSOLUTE COUNT (BEAKER) (test 6.23 K/ L 1.56-6.13 wghe=626) LYMPHOCYTES ABSOLUTE COUNT (BEAKER) (test 3.90 K/ L 1.18-3.74 dlhs=969) MONOCYTES ABSOLUTE COUNT (BEAKER) (test 2.37 K/ L 0.24-0.36 lahk=391) EOSINOPHILS ABSOLUTE COUNT (BEAKER) (test 0.24 K/ L 0.04-0.36 ibjl=722) BASOPHILS ABSOLUTE COUNT (BEAKER) (test 0.01 K/ L 0.01-0.08 zyut=578) IMMATURE GRANULOCYTES-RELATIVE PERCENT (BEAKER) 0 % 0-1 (test ahmi=5140) (MANUAL DIFFERENTIAL)2017-06-03 06:48:00 Test Item Value Reference Range Comments TOTAL COUNTED (BEAKER) (test cjtx=0171) WBC MORPHOLOGY (BEAKER) (test smlm=299) Normal PLT MORPHOLOGY (BEAKER) (test opii=348) Normal ANISOCYTOSIS (BEAKER) (test deqe=760) 3+ many MATTHEWS-JOLLY BODIES (BEAKER) (test okyz=795) Present MACROCYTES (BEAKER) (test wpix=413) 3+ many SICKLE CELLS (BEAKER) (test euft=291) 1+ few TARGET CELLS (BEAKER) (test xfvl=017) 1+ few BASIC METABOLIC [id number] 07:33:00 Test Item Value Reference Range Comments SODIUM (BEAKER) (test 138 meq/L 136-145 sbmf=458) POTASSIUM (BEAKER) (test 4.5 meq/L 3.5-5.1 etnc=419) CHLORIDE (BEAKER) (test 102 meq/L 98-107 bdtj=575) CO2 (BEAKER) (test 27 meq/L 22-29 ocbj=510) BLOOD UREA NITROGEN 11 mg/dL 7-21 (BEAKER) (test ymeq=925) CREATININE (BEAKER) (test 0.55 mg/dL 0.57-1.25 ylsx=082) GLUCOSE RANDOM (BEAKER) 85 mg/dL 70-105 (test gzzt=333) CALCIUM (BEAKER) (test 9.5 mg/dL 8.4-10.2 rmcm=059) EGFR (BEAKER) (test 150 mL/min/1.73 sq m ESTIMATED GFR IS NOT eqps=4358) ACCURATE CREATININE CLEARANCE IN PREDICTING GLOMERULAR FILTRATION RATE. ESTIMATED GFR IS NOT APPLICABLE FOR DIALYSIS PATIENTS. CBC W/PLT COUNT & AUTO [id number] 07:13:00 Test Item Value Reference Range Comments WHITE BLOOD CELL COUNT (BEAKER) (test jekp=999) 14.2 K/ L 3.5-10.5 RED BLOOD CELL COUNT (BEAKER) (test upyk=315) 2.39 M/ L 3.93-5.22 HEMOGLOBIN (BEAKER) (test cxbt=585) 7.6 GM/DL 11.2-15.7 HEMATOCRIT (BEAKER) (test tllz=259) 23.5 % 34.1-44.9 MEAN CORPUSCULAR VOLUME (BEAKER) (test jknp=229) 98.3 fL 79.4-94.8 MEAN CORPUSCULAR HEMOGLOBIN (BEAKER) (test 31.8 pg 25.6-32.2 csly=708) MEAN CORPUSCULAR HEMOGLOBIN CONC (BEAKER) (test 32.3 GM/DL 32.2-35.5 hmlv=192) RED CELL DISTRIBUTION WIDTH (BEAKER) (test 21.1 % 11.7-14.4 nins=136) PLATELET COUNT (BEAKER) (test uted=819) 173 K/CU MM 150-450 MEAN PLATELET VOLUME (BEAKER) (test uxmu=869) 11.7 fL 9.4-12.3 NUCLEATED RED BLOOD CELLS (BEAKER) (test 11 /100 WBC 0-0 clej=468) NEUTROPHILS RELATIVE PERCENT (BEAKER) (test 53 % gbyb=483) LYMPHOCYTES RELATIVE PERCENT (BEAKER) (test 27 % heum=959) MONOCYTES RELATIVE PERCENT (BEAKER) (test 18 % jfbw=679) EOSINOPHILS RELATIVE PERCENT (BEAKER) (test 1 % qmfj=538) BASOPHILS RELATIVE PERCENT (BEAKER) (test 0 % olai=402) NEUTROPHILS ABSOLUTE COUNT (BEAKER) (test 7.56 K/ L 1.56-6.13 mgxc=288) LYMPHOCYTES ABSOLUTE COUNT (BEAKER) (test 3.89 K/ L 1.18-3.74 qvjz=906) MONOCYTES ABSOLUTE COUNT (BEAKER) (test 2.52 K/ L 0.24-0.36 gnle=295) EOSINOPHILS ABSOLUTE COUNT (BEAKER) (test 0.20 K/ L 0.04-0.36 vpim=032) BASOPHILS ABSOLUTE COUNT (BEAKER) (test 0.02 K/ L 0.01-0.08 bboy=288) IMMATURE GRANULOCYTES-RELATIVE PERCENT (BEAKER) 0 % 0-1 (test lvkg=9991) CBC W/PLT COUNT & AUTO [id number] 16:45:00 Test Item Value Reference Range Comments WHITE BLOOD CELL COUNT (BEAKER) (test ncte=072) 15.1 K/ L 3.5-10.5 RED BLOOD CELL COUNT (BEAKER) (test hbjq=523) 2.36 M/ L 3.93-5.22 HEMOGLOBIN (BEAKER) (test dzjy=636) 7.5 GM/DL 11.2-15.7 HEMATOCRIT (BEAKER) (test mhmh=398) 23.0 % 34.1-44.9 MEAN CORPUSCULAR VOLUME (BEAKER) (test xmup=177) 97.5 fL 79.4-94.8 MEAN CORPUSCULAR HEMOGLOBIN (BEAKER) (test 31.8 pg 25.6-32.2 pyqj=277) MEAN CORPUSCULAR HEMOGLOBIN CONC (BEAKER) (test 32.6 GM/DL 32.2-35.5 oeix=673) RED CELL DISTRIBUTION WIDTH (BEAKER) (test 20.7 % 11.7-14.4 gupp=446) PLATELET COUNT (BEAKER) (test seyu=791) 179 K/CU MM 150-450 MEAN PLATELET VOLUME (BEAKER) (test gfhd=792) 11.9 fL 9.4-12.3 NUCLEATED RED BLOOD CELLS (BEAKER) (test 12 /100 WBC 0-0 kzqq=670) NEUTROPHILS RELATIVE PERCENT (BEAKER) (test 53 % juzl=520) LYMPHOCYTES RELATIVE PERCENT (BEAKER) (test 27 % ijvk=209) MONOCYTES RELATIVE PERCENT (BEAKER) (test 18 % edbx=905) EOSINOPHILS RELATIVE PERCENT (BEAKER) (test 2 % ohof=949) BASOPHILS RELATIVE PERCENT (BEAKER) (test 0 % tbwk=965) NEUTROPHILS ABSOLUTE COUNT (BEAKER) (test 8.03 K/ L 1.56-6.13 lgni=304) LYMPHOCYTES ABSOLUTE COUNT (BEAKER) (test 3.99 K/ L 1.18-3.74 chsc=159) MONOCYTES ABSOLUTE COUNT (BEAKER) (test 2.65 K/ L 0.24-0.36 zldk=768) EOSINOPHILS ABSOLUTE COUNT (BEAKER) (test 0.31 K/ L 0.04-0.36 qiyi=574) BASOPHILS ABSOLUTE COUNT (BEAKER) (test 0.02 K/ L 0.01-0.08 fehb=181) IMMATURE GRANULOCYTES-RELATIVE PERCENT (BEAKER) 0 % 0-1 (test uvrg=4747) BASIC METABOLIC [id number] 06:17:00 Test Item Value Reference Range Comments SODIUM (BEAKER) (test 138 meq/L 136-145 idae=448) POTASSIUM (BEAKER) (test 4.1 meq/L 3.5-5.1 coqx=174) CHLORIDE (BEAKER) (test 100 meq/L 98-107 iqfd=203) CO2 (BEAKER) (test 30 meq/L 22-29 xict=131) BLOOD UREA NITROGEN 11 mg/dL 7-21 (BEAKER) (test fxpk=974) CREATININE (BEAKER) (test 0.58 mg/dL 0.57-1.25 utyg=893) GLUCOSE RANDOM (BEAKER) 90 mg/dL 70-105 (test hwgb=473) CALCIUM (BEAKER) (test 9.4 mg/dL 8.4-10.2 lrzn=390) EGFR (BEAKER) (test 141 mL/min/1.73 sq m ESTIMATED GFR IS NOT jpmx=2552) ACCURATE CREATININE CLEARANCE IN PREDICTING GLOMERULAR FILTRATION RATE. ESTIMATED GFR IS NOT APPLICABLE FOR DIALYSIS PATIENTS. CBC W/PLT COUNT & AUTO [id number] 13:41:00 Test Item Value Reference Range Comments WHITE BLOOD CELL COUNT (BEAKER) (test lynr=984) 13.9 K/ L 3.5-10.5 RED BLOOD CELL COUNT (BEAKER) (test zvrl=113) 2.38 M/ L 3.93-5.22 HEMOGLOBIN (BEAKER) (test oiue=626) 7.5 GM/DL 11.2-15.7 HEMATOCRIT (BEAKER) (test xcgh=401) 23.2 % 34.1-44.9 MEAN CORPUSCULAR VOLUME (BEAKER) (test gkfm=411) 97.5 fL 79.4-94.8 MEAN CORPUSCULAR HEMOGLOBIN (BEAKER) (test 31.5 pg 25.6-32.2 qltj=926) MEAN CORPUSCULAR HEMOGLOBIN CONC (BEAKER) (test 32.3 GM/DL 32.2-35.5 dvat=524) RED CELL DISTRIBUTION WIDTH (BEAKER) (test 20.2 % 11.7-14.4 ctsm=531) PLATELET COUNT (BEAKER) (test sdan=520) 171 K/CU MM 150-450 MEAN PLATELET VOLUME (BEAKER) (test bbdn=576) 12.0 fL 9.4-12.3 NUCLEATED RED BLOOD CELLS (BEAKER) (test 8 /100 WBC 0-0 izeq=291) NEUTROPHILS RELATIVE PERCENT (BEAKER) (test 57 % gdiv=154) LYMPHOCYTES RELATIVE PERCENT (BEAKER) (test 23 % gdqt=301) MONOCYTES RELATIVE PERCENT (BEAKER) (test 18 % zcbs=236) EOSINOPHILS RELATIVE PERCENT (BEAKER) (test 2 % hxqv=750) BASOPHILS RELATIVE PERCENT (BEAKER) (test 0 % qycl=359) NEUTROPHILS ABSOLUTE COUNT (BEAKER) (test 7.89 K/ L 1.56-6.13 flrp=149) LYMPHOCYTES ABSOLUTE COUNT (BEAKER) (test 3.13 K/ L 1.18-3.74 iiuw=412) MONOCYTES ABSOLUTE COUNT (BEAKER) (test 2.52 K/ L 0.24-0.36 rlqw=710) EOSINOPHILS ABSOLUTE COUNT (BEAKER) (test 0.25 K/ L 0.04-0.36 hwpf=091) BASOPHILS ABSOLUTE COUNT (BEAKER) (test 0.02 K/ L 0.01-0.08 rfkl=476) IMMATURE GRANULOCYTES-RELATIVE PERCENT (BEAKER) 1 % 0-1 (test avvo=4443) (MANUAL DIFFERENTIAL)2017-05-31 13:41:00 Test Item Value Reference Range Comments TOTAL COUNTED (BEAKER) (test cxco=7528) WBC MORPHOLOGY (BEAKER) (test elon=604) Normal PLT MORPHOLOGY (BEAKER) (test pgju=284) Normal POLYCHROMATOPHILLIC RBCS(BEAKER) (test vxxb=550) 2+ moderate SICKLE CELLS (BEAKER) (test baot=909) 1+ few TARGET CELLS (BEAKER) (test qwls=921) 2+ moderate URINE [id number] 12:19:00 Test Item Value Reference Range Comments CULTURE (BEAKER) (test 20-29,000 col/mL skin valentino kvut=4415) BASIC METABOLIC [id number] 07:23:00 Test Item Value Reference Range Comments SODIUM (BEAKER) (test 136 meq/L 136-145 makq=078) POTASSIUM (BEAKER) (test 3.9 meq/L 3.5-5.1 dbfx=206) CHLORIDE (BEAKER) (test 97 meq/L 98-107 oldx=417) CO2 (BEAKER) (test 30 meq/L 22-29 usrx=919) BLOOD UREA NITROGEN 9 mg/dL 7-21 (BEAKER) (test mmef=108) CREATININE (BEAKER) (test 0.56 mg/dL 0.57-1.25 ciou=052) GLUCOSE RANDOM (BEAKER) 100 mg/dL 70-105 (test kdad=819) CALCIUM (BEAKER) (test 9.5 mg/dL 8.4-10.2 xuyn=027) EGFR (BEAKER) (test 147 mL/min/1.73 sq m ESTIMATED GFR IS NOT iavg=1840) ACCURATE CREATININE CLEARANCE IN PREDICTING GLOMERULAR FILTRATION RATE. ESTIMATED GFR IS NOT APPLICABLE FOR DIALYSIS PATIENTS. U/S, ABDOMINAL, [id number] 23:52:00Reason for exam:->painShould this be performed at [...] MDReport Verified Date/Time: 05/30/2017 23:52:25 Reading Location: [address] Consult Reading Room 11:52 PMCBC W/PLT COUNT & AUTO [id number] 17:30:00 Test Item Value Reference Range Comments WHITE BLOOD CELL COUNT (BEAKER) (test gsso=142) 14.0 K/ L 3.5-10.5 RED BLOOD CELL COUNT (BEAKER) (test hpbw=112) 2.41 M/ L 3.93-5.22 HEMOGLOBIN (BEAKER) (test hqpl=687) 7.7 GM/DL 11.2-15.7 HEMATOCRIT (BEAKER) (test ghzo=574) 23.3 % 34.1-44.9 MEAN CORPUSCULAR VOLUME (BEAKER) (test wxdu=023) 96.7 fL 79.4-94.8 MEAN CORPUSCULAR HEMOGLOBIN (BEAKER) (test 32.0 pg 25.6-32.2 bgtt=460) MEAN CORPUSCULAR HEMOGLOBIN CONC (BEAKER) (test 33.0 GM/DL 32.2-35.5 ozsp=964) RED CELL DISTRIBUTION WIDTH (BEAKER) (test 20.0 % 11.7-14.4 jbzw=774) PLATELET COUNT (BEAKER) (test htxn=052) 163 K/CU MM 150-450 MEAN PLATELET VOLUME (BEAKER) (test opmc=949) 11.7 fL 9.4-12.3 NUCLEATED RED BLOOD CELLS (BEAKER) (test 4 /100 WBC 0-0 wicz=779) NEUTROPHILS RELATIVE PERCENT (BEAKER) (test 47 % yesr=539) LYMPHOCYTES RELATIVE PERCENT (BEAKER) (test 32 % epfo=226) MONOCYTES RELATIVE PERCENT (BEAKER) (test 18 % yizk=361) EOSINOPHILS RELATIVE PERCENT (BEAKER) (test 3 % csbs=840) BASOPHILS RELATIVE PERCENT (BEAKER) (test 0 % dzmv=809) NEUTROPHILS ABSOLUTE COUNT (BEAKER) (test 6.58 K/ L 1.56-6.13 hyej=959) LYMPHOCYTES ABSOLUTE COUNT (BEAKER) (test 4.40 K/ L 1.18-3.74 uups=054) MONOCYTES ABSOLUTE COUNT (BEAKER) (test 2.49 K/ L 0.24-0.36 cxai=529) EOSINOPHILS ABSOLUTE COUNT (BEAKER) (test 0.44 K/ L 0.04-0.36 eymg=446) BASOPHILS ABSOLUTE COUNT (BEAKER) (test 0.02 K/ L 0.01-0.08 yils=063) IMMATURE GRANULOCYTES-RELATIVE PERCENT (BEAKER) 0 % 0-1 (test ayzs=5538) BASIC METABOLIC [id number] 06:33:00 Test Item Value Reference Range Comments SODIUM (BEAKER) (test 139 meq/L 136-145 phyq=501) POTASSIUM (BEAKER) (test 4.0 meq/L 3.5-5.1 dnty=459) CHLORIDE (BEAKER) (test 102 meq/L 98-107 jtgj=315) CO2 (BEAKER) (test 28 meq/L 22-29 vqbi=989) BLOOD UREA NITROGEN 7 mg/dL 7-21 (BEAKER) (test nmvh=110) CREATININE (BEAKER) (test 0.54 mg/dL 0.57-1.25 onum=438) GLUCOSE RANDOM (BEAKER) 95 mg/dL 70-105 (test rgav=978) CALCIUM (BEAKER) (test 9.6 mg/dL 8.4-10.2 owld=136) EGFR (BEAKER) (test 153 mL/min/1.73 sq m ESTIMATED GFR IS NOT qkby=7790) ACCURATE CREATININE CLEARANCE IN PREDICTING GLOMERULAR FILTRATION RATE. ESTIMATED GFR IS NOT APPLICABLE FOR DIALYSIS PATIENTS. CBC W/PLT COUNT & AUTO [id number] 13:41:00 Test Item Value Reference Range Comments WHITE BLOOD CELL COUNT (BEAKER) (test uweh=251) 14.6 K/ L 3.5-10.5 RED BLOOD CELL COUNT (BEAKER) (test gvdm=945) 1.85 M/ L 3.93-5.22 HEMOGLOBIN (BEAKER) (test lyra=030) 5.9 GM/DL 11.2-15.7 HEMATOCRIT (BEAKER) (test tpxe=572) 18.5 % 34.1-44.9 MEAN CORPUSCULAR VOLUME (BEAKER) (test vbgy=763) 100.0 fL 79.4-94.8 MEAN CORPUSCULAR HEMOGLOBIN (BEAKER) (test 31.9 pg 25.6-32.2 ebws=314) MEAN CORPUSCULAR HEMOGLOBIN CONC (BEAKER) (test 31.9 GM/DL 32.2-35.5 dzqe=384) RED CELL DISTRIBUTION WIDTH (BEAKER) (test 21.0 % 11.7-14.4 qdag=823) PLATELET COUNT (BEAKER) (test urgo=174) 169 K/CU MM 150-450 MEAN PLATELET VOLUME (BEAKER) (test pkks=369) 12.1 fL 9.4-12.3 NUCLEATED RED BLOOD CELLS (BEAKER) (test 3 /100 WBC 0-0 bebd=738) NEUTROPHILS RELATIVE PERCENT (BEAKER) (test 52 % invj=586) LYMPHOCYTES RELATIVE PERCENT (BEAKER) (test 28 % azgb=424) MONOCYTES RELATIVE PERCENT (BEAKER) (test 16 % elre=895) EOSINOPHILS RELATIVE PERCENT (BEAKER) (test 4 % atax=861) BASOPHILS RELATIVE PERCENT (BEAKER) (test 0 % yvqg=880) NEUTROPHILS ABSOLUTE COUNT (BEAKER) (test 7.50 K/ L 1.56-6.13 tzpn=622) LYMPHOCYTES ABSOLUTE COUNT (BEAKER) (test 4.08 K/ L 1.18-3.74 qxrx=329) MONOCYTES ABSOLUTE COUNT (BEAKER) (test 2.34 K/ L 0.24-0.36 xpng=564) EOSINOPHILS ABSOLUTE COUNT (BEAKER) (test 0.56 K/ L 0.04-0.36 jgxr=149) BASOPHILS ABSOLUTE COUNT (BEAKER) (test 0.02 K/ L 0.01-0.08 srdx=579) IMMATURE GRANULOCYTES-RELATIVE PERCENT (BEAKER) 0 % 0-1 (test rumo=0390) (MANUAL DIFFERENTIAL)2017-05-29 13:41:00 Test Item Value Reference Range Comments TOTAL COUNTED (BEAKER) (test onll=3901) WBC MORPHOLOGY (BEAKER) (test pvtm=768) Normal PLT MORPHOLOGY (BEAKER) (test zhwv=291) Normal POLYCHROMATOPHILLIC RBCS(BEAKER) (test zxzn=480) 2+ moderate SICKLE CELLS (BEAKER) (test qzhx=514) 1+ few TARGET CELLS (BEAKER) (test qhxd=345) 2+ moderate BASIC METABOLIC [id number] 07:38:00 Test Item Value Reference Range Comments SODIUM (BEAKER) (test 140 meq/L 136-145 dxnb=110) POTASSIUM (BEAKER) (test 3.9 meq/L 3.5-5.1 etga=594) CHLORIDE (BEAKER) (test 104 meq/L 98-107 kybk=143) CO2 (BEAKER) (test 28 meq/L 22-29 moeu=269) BLOOD UREA NITROGEN 8 mg/dL 7-21 (BEAKER) (test imzv=381) CREATININE (BEAKER) (test 0.56 mg/dL 0.57-1.25 aziv=174) GLUCOSE RANDOM (BEAKER) 129 mg/dL 70-105 (test bqei=212) CALCIUM (BEAKER) (test 9.2 mg/dL 8.4-10.2 epwx=134) EGFR (BEAKER) (test 147 mL/min/1.73 sq m ESTIMATED GFR IS NOT cili=4115) ACCURATE CREATININE CLEARANCE IN PREDICTING GLOMERULAR FILTRATION RATE. ESTIMATED GFR IS NOT APPLICABLE FOR DIALYSIS PATIENTS. CBC W/PLT COUNT & AUTO [id number] 15:40:00 Test Item Value Reference Range Comments WHITE BLOOD CELL COUNT (BEAKER) (test odtv=169) 15.5 K/ L 3.5-10.5 RED BLOOD CELL COUNT (BEAKER) (test xvft=281) 2.13 M/ L 3.93-5.22 HEMOGLOBIN (BEAKER) (test omwz=741) 6.8 GM/DL 11.2-15.7 HEMATOCRIT (BEAKER) (test seph=006) 21.1 % 34.1-44.9 MEAN CORPUSCULAR VOLUME (BEAKER) (test klkm=875) 99.1 fL 79.4-94.8 MEAN CORPUSCULAR HEMOGLOBIN (BEAKER) (test 31.9 pg 25.6-32.2 hhst=158) MEAN CORPUSCULAR HEMOGLOBIN CONC (BEAKER) (test 32.2 GM/DL 32.2-35.5 sxve=408) RED CELL DISTRIBUTION WIDTH (BEAKER) (test 20.8 % 11.7-14.4 yrde=498) PLATELET COUNT (BEAKER) (test bwel=155) 178 K/CU MM 150-450 MEAN PLATELET VOLUME (BEAKER) (test nouq=076) 11.9 fL 9.4-12.3 NUCLEATED RED BLOOD CELLS (BEAKER) (test 2 /100 WBC 0-0 mwbm=531) NEUTROPHILS RELATIVE PERCENT (BEAKER) (test 47 % jpdx=606) LYMPHOCYTES RELATIVE PERCENT (BEAKER) (test 34 % pdqi=216) MONOCYTES RELATIVE PERCENT (BEAKER) (test 16 % rkid=199) EOSINOPHILS RELATIVE PERCENT (BEAKER) (test 3 % yyln=538) BASOPHILS RELATIVE PERCENT (BEAKER) (test 0 % uwkh=929) NEUTROPHILS ABSOLUTE COUNT (BEAKER) (test 7.20 K/ L 1.56-6.13 tfgs=755) LYMPHOCYTES ABSOLUTE COUNT (BEAKER) (test 5.22 K/ L 1.18-3.74 ouut=251) MONOCYTES ABSOLUTE COUNT (BEAKER) (test 2.50 K/ L 0.24-0.36 alul=829) EOSINOPHILS ABSOLUTE COUNT (BEAKER) (test 0.48 K/ L 0.04-0.36 pzjs=683) BASOPHILS ABSOLUTE COUNT (BEAKER) (test 0.02 K/ L 0.01-0.08 raot=731) IMMATURE GRANULOCYTES-RELATIVE PERCENT (BEAKER) 1 % 0-1 (test ewoq=7256) (MANUAL DIFFERENTIAL)2017-05-28 15:40:00 Test Item Value Reference Range Comments TOTAL COUNTED (BEAKER) (test kbbz=0219) WBC MORPHOLOGY (BEAKER) (test xnzm=518) Normal PLT MORPHOLOGY (BEAKER) (test wrgj=484) Normal ANISOCYTOSIS (BEAKER) (test yxnn=179) 2+ moderate POLYCHROMATOPHILLIC RBCS(BEAKER) (test wclz=200) 2+ moderate SICKLE CELLS (BEAKER) (test prgq=833) 1+ few TARGET CELLS (BEAKER) (test ljpl=387) 2+ moderate URINALYSIS W/ [id number] 15:13:00 Test Item Value Reference Range Comments COLOR (BEAKER) (test gwcw=124) Yellow CLARITY (BEAKER) (test gmtd=243) Clear SPECIFIC GRAVITY UA (BEAKER) (test wvys=771) 1.008 1.001-1.035 PH UA (BEAKER) (test vokp=711) 6.0 5.0-8.0 PROTEIN UA (BEAKER) (test alfp=496) Negative Negative GLUCOSE UA (BEAKER) (test tqbc=555) Negative Negative KETONES UA (BEAKER) (test rcjv=538) Negative Negative BILIRUBIN UA (BEAKER) (test argu=232) Negative Negative BLOOD UA (BEAKER) (test jxjd=248) Negative Negative NITRITE UA (BEAKER) (test oiwq=480) Negative Negative LEUKOCYTE ESTERASE UA (BEAKER) (test gcmg=786) Negative Negative UROBILINOGEN UA (BEAKER) (test sazv=674) 0.2 mg/dL 0.2-1.0 RBC UA (BEAKER) (test ccpu=705) < /HPF WBC UA (BEAKER) (test fklu=209) 2 /HPF MUCUS (BEAKER) (test ygfh=7893) Rare SQUAMOUS EPITHELIAL (BEAKER) (test jwmj=065) 5 /HPF SOURCE(BEAKER) (test dvzp=3186) Urine, Voided BASIC METABOLIC [id number] 06:26:00 Test Item Value Reference Range Comments SODIUM (BEAKER) (test 139 meq/L 136-145 oegc=589) POTASSIUM (BEAKER) (test 3.8 meq/L 3.5-5.1 jqia=411) CHLORIDE (BEAKER) (test 104 meq/L 98-107 fdza=716) CO2 (BEAKER) (test 30 meq/L 22-29 hvjf=094) BLOOD UREA NITROGEN 6 mg/dL 7-21 (BEAKER) (test kkml=921) CREATININE (BEAKER) (test 0.56 mg/dL 0.57-1.25 ibgd=794) GLUCOSE RANDOM (BEAKER) 102 mg/dL 70-105 (test bqun=338) CALCIUM (BEAKER) (test 9.0 mg/dL 8.4-10.2 mnfh=256) EGFR (BEAKER) (test 147 mL/min/1.73 sq m ESTIMATED GFR IS NOT dpik=1989) ACCURATE CREATININE CLEARANCE IN PREDICTING GLOMERULAR FILTRATION RATE. ESTIMATED GFR IS NOT APPLICABLE FOR DIALYSIS PATIENTS.
[2018-04-15] MEDS ORDERED: PROMETHAZINE 25 MG/ML VIAL ONE (18:25)
[2018-04-15] MEDS ORDERED: DIPHENHYDRAMINE 50 MG/ML VIAL ONE (18:25)
[2018-04-15] MEDS ORDERED: HYDROMORPHONE HCL 1 MG/ML INJ ONE (18:25)
[2018-04-15] MEDS ORDERED: FOLIC ACID 5 MG/ML VIAL ONE (18:27)
--- NOTE | 2018-04-15 18:32 | ER ---
Nurse's Notes [facility] Name: Brennon Berg Age: 38 yrs Sex: Female : 1980 Arrival Date: 04/15/2018 Time: 16:54 Bed 24 Private MD: Adama Rod E Diagnosis: Sickle-cell disorders;Anemia, unspecified;Chest pain, unspecified;Hypokalemia;Hypomagnesemia Presentation: 04/15 17:01 Presenting complaint: Patient states: "my supervisor inspection room sent me here because my aa5 hemoglobin is 6.3 and I need a blood transfusion". Transition of care: patient was not received from another setting of care. Onset of symptoms was March 2018. Risk Assessment: Do you want to hurt yourself or someone else? Patient reports no desire to harm self or others. Initial Sepsis Screen: Does the patient meet any 2 criteria? No. Patient's initial sepsis screen is negative. Does the patient have a suspected source of infection? No. Patient's initial sepsis screen is negative. Care prior to arrival: None. 17:01 Method Of Arrival: Ambulatory aa5 17:01 Acuity: TEMI 3 aa5 DEVELOPMENTAL THERAPIST: 17:03 LMP N/A - Hysterectomy aa5 Historical: - Allergies: 17:03 Fentanyl; aa5 17:03 Morphine; aa5 17:03 Reglan; aa5 17:03 Stadol; aa5 17:03 Toradol; aa5 17:03 tramadol; aa5 17:03 Trazodone; aa5 17:03 Ultram; aa5 17:03 Zofran; aa5 - PMHx: 17:03 aplastic anemia; CVA; Myocardial infarction; Seizures; Sickle Cell; aa5 - PSHx: 17:03 Hysterectomy; splenectomy; Cholecystectomy; ; aa5 - Immunization history:: Adult Immunizations up to date. - Social history:: Smoking status: Patient/guardian denies using tobacco. - Ebola Screening: : No symptoms or risks identified at this time. - Family history:: not pertinent. Screenin:10 Abuse screen: Denies threats or abuse. Denies injuries from another. Nutritional ss screening: No deficits noted. Tuberculosis screening: Never had TB. Fall Risk No fall in past 12 months (0 pts). Secondary diagnosis (15 points) impaired mobility, CVA, IV access (20 points). Ambulatory Aid- None/Bed Rest/Nurse Assist (0 pts). Gait- Normal/Bed Rest/Wheelchair (0 pts) Mental Status- Oriented to own ability (0 pts). Assessment: 18:10 General: Appears in no apparent distress. comfortable, Behavior is calm, cooperative, ss appropriate for age, Denies fever, feeling ill, fatigue, chills. Pain: Complains of pain in R lateral aspect of ribs Pain currently is 9 out of 10 on a pain scale. Quality of pain is described as sharp, Pain began "a few days ago" Is continuous, Aggravated by increased activity, repositioning. Neuro: Level of Consciousness is awake, alert, obeys commands, Oriented to person, place, time, situation. Cardiovascular: Capillary refill < 3 seconds is brisk in bilateral fingers. Respiratory: Airway is patent Respiratory effort is even, unlabored, Respiratory pattern is regular, symmetrical. GI: Abdomen is non-distended, Bowel sounds present X 4 quads. Reports nausea. : No deficits noted. EENT: Nares are clear Oral mucosa is moist. Absence of teeth noted - all teeth, gums appear heatlhy, pink, moist. Derm: Skin is intact, is healthy with good turgor, Skin is dry. Musculoskeletal: history of CVA with atrophy to L upper arm. 19:30 Reassessment: Patient is alert, oriented x 3, equal unlabored respirations, skin bb warm/dry/pink. Cardiovascular: Capillary refill < 3 seconds Patient's skin is warm and dry. Respiratory: Respiratory effort is even, unlabored, Respiratory pattern is regular. GI: No deficits noted. Derm: Skin is dry, Skin is normal, Skin temperature is warm. Musculoskeletal: Circulation, motion, and sensation intact. port-a-cath accessed. 20:51 Reassessment: pt A\\T\\O x 4, resp unlabored, ambulated with steady gait to bathroom, bb awaiting room assignment. 20:56 Reassessment: report called to Debbie elder Vital Signs: 17:03 BP 134 / 97; Pulse 88; Resp 16 S; Temp 98.3(TE); Pulse Ox 97% on R/A; Weight 68.95 kg aa5 (R); Height 5 ft. 3 in. (160.02 cm) (R); Pain 9/10; 18:10 BP 151 / 100; Pulse 76; Resp 15; Pulse Ox 100% on R/A; Pain 7/10; ss 19:25 BP 143 / 94; Pulse 84; Resp 16 S; Temp 99.4(O); Pulse Ox 100% on R/A; bb 17:03 Body Mass Index 26.93 (68.95 kg, 160.02 cm) aa5 ED Course: 16:54 Patient arrived in ED. mr 16:55 Adama Rod MD is Private Physician. mr 17:00 Arm band placed on. aa5 17:02 Triage completed. aa5 17:54 Spenser Luis MD is Attending Physician. anupam 18:10 Patient has correct armband on for positive identification. Placed in gown. Bed in low ss position. Call light in reach. Side rails up X 1. teletypesetter monitor on. Pulse ox on. NIBP on. 18:18 Ivone Coto, NIKKI is Primary Nurse. ss 18:25 XRAY Chest (1 view) In Process Unspecified. EDMS 18:28 Accessed Patient sent over from supervisor inspection room's office with R anterior chest wall port ss accessed. flushes well, good blood return noted. . Oxygen administration via nasal cannula \\T\\ 2L/min. 18:29 Sai Rivers MD is Hospitalizing Provider. anupam 18:39 Notified ED physician of a critical lab result(s). Hgb=6.3, Hct=18.8. iw 20:57 No provider procedures requiring assistance completed. Patient admitted, IV remains in bb place. Administered Medications: 18:28 Drug: Benadryl 25 mg Route: IVP; Site: Port-a-cath; ss 18:54 Follow up: Response: No adverse reaction; Marked relief of symptoms; Pain is decreased ss 18:30 Drug: Phenergan 12.5 mg Route: IVP; Site: Port-a-cath; ss 18:54 Follow up: Response: No adverse reaction; Marked relief of symptoms; Pain is decreased ss 18:32 Drug: Dilaudid 1 mg Route: IVP; Site: Port-a-cath; ss 18:54 Follow up: Response: No adverse reaction; No change in condition; Pain is decreased ss 18:40 Drug: foLIC Acid 1 mg Route: IVPB; Site: Port-a-cath; ss 18:54 Follow up: IV Status: Completed infusion ss 19:12 Drug: Magnesium Sulfate 1 grams Route: IVPB; Infused Over: 1 hrs; Site: Port-a-cath; bb 20:24 Follow up: IV Status: Completed infusion; IV Intake: 100ml bb 19:15 Drug: Potassium Effervescent Tablet 25 mEq Route: PO; bb 20:24 Follow up: Response: No adverse reaction bb Intake: 20:24 IV: 100ml; Total: 100ml. bb Outcome: 18:31 Decision to Hospitalize by Provider. anupam 20:57 Admitted to Med/surg accompanied by tech, via wheelchair, room 423, with chart, Report bb called to Debbie JORDAN 20:57 Condition: stable 21:11 Patient left the ED. bb Signatures: Dispatcher [employer] EDSpenser Vazquez MD MD cha Rivera, Maria mr Scarlett Sullivan, RN RN Patrizia Gonzalez, RN Cecelia Hernandez RN NIKKI aa5 Ivone Coto RN RN
--- NOTE | 2018-04-15 18:32 | EDPHYS ---
Physician Documentation [facility] Name: Brennon Berg Age: 38 yrs Sex: Female : 1980 Arrival Date: 04/15/2018 Time: 16:54 Bed 24 Private MD: Adama Rod E ED Physician Spenser Luis HPI: 04/15 18:01 This 38 yrs old Black Female presents to ER via Ambulatory with complaints of Nausea, anupam Weakness, Pain All Over. 18:01 The patient presents to the emergency department with nausea, that is mild, that is anupam moderate. 18:02 The patient or guardian reports chest pain that is located primarily in the anterior anupam chest wall, right. Onset: The symptoms/episode began/occurred 2 day(s) ago. Possible causes: sickle cell crsis. The symptoms are aggravated by nothing. The symptoms are alleviated by nothing. pain all over. The pain does not radiate. 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 - Social history:: Smoking status: Patient/guardian denies using tobacco. - Ebola Screening: : No symptoms or risks identified at this time. - Family history:: not pertinent. ROS: 18:02 Constitutional: Negative for fever, chills, and weight loss, Eyes: Negative for injury, anupam pain, redness, and discharge, ENT: Negative for injury, pain, and discharge, Neck: Negative for injury, pain, and swelling, Respiratory: Negative for shortness of breath, cough, wheezing, and pleuritic chest pain, Abdomen/GI: Negative for abdominal pain, nausea, vomiting, diarrhea, and constipation, Back: Negative for injury and pain, : Negative for injury, bleeding, discharge, and swelling, MS/Extremity: Negative for injury and deformity, Skin: Negative for injury, rash, and discoloration, Neuro: Negative for headache, weakness, numbness, tingling, and seizure, Psych: Negative for depression, anxiety, suicide ideation, homicidal ideation, and hallucinations, Allergy/Immunology: Negative for hives, rash, and allergies, Endocrine: Negative for neck swelling, polydipsia, polyuria, polyphagia, and marked weight changes. 18:02 Cardiovascular: Positive for chest pain. 18:02 Hematologic/Lymphatic: Positive for anemia, joint pain, sickle cell. Exam: 18:02 Constitutional: This is a well developed, well nourished patient who is awake, alert, anupam and in no acute distress. Head/Face: Normocephalic, atraumatic. Eyes: Pupils equal round and reactive to light, extra-ocular motions intact. Lids and lashes normal. Conjunctiva and sclera are non-icteric and not injected. Cornea within normal limits. Periorbital areas with no swelling, redness, or edema. ENT: Nares patent. No nasal discharge, no septal abnormalities noted. Tympanic membranes are normal and external auditory canals are clear. Oropharynx with no redness, swelling, or masses, exudates, or evidence of obstruction, uvula midline. Mucous membranes moist. Neck: Trachea midline, no thyromegaly or masses palpated, and no cervical lymphadenopathy. Supple, full range of motion without nuchal rigidity, or vertebral point tenderness. No Meningismus. Chest/axilla: Normal chest wall appearance and motion. Nontender with no deformity. No lesions are appreciated. Cardiovascular: Regular rate and rhythm with a normal S1 and S2. No gallops, murmurs, or rubs. Normal PMI, no JVD. No pulse deficits. Respiratory: Lungs have equal breath sounds bilaterally, clear to auscultation and percussion. No rales, rhonchi or wheezes noted. No increased work of breathing, no retractions or nasal flaring. Abdomen/GI: Soft, non-tender, with normal bowel sounds. No distension or tympany. No guarding or rebound. No evidence of tenderness throughout. Back: No spinal tenderness. No costovertebral tenderness. Full range of motion. Skin: Warm, dry with normal turgor. Normal color with no rashes, no lesions, and no evidence of cellulitis. MS/ Extremity: Pulses equal, no cyanosis. Neurovascular intact. Full, normal range of motion. Neuro: Awake and alert, GCS 15, oriented to person, place, time, and situation. Cranial nerves II-XII grossly intact. Motor strength 5/5 in all extremities. Sensory grossly intact. Cerebellar exam normal. Normal gait. Psych: Awake, alert, with orientation to person, place and time. Behavior, mood, and affect are within normal limits. Vital Signs: 17:03 BP 134 / 97; Pulse 88; Resp 16 S; Temp 98.3(TE); Pulse Ox 97% on R/A; Weight 68.95 kg aa5 (R); Height 5 ft. 3 in. (160.02 cm) (R); Pain 9/10; 18:10 BP 151 / 100; Pulse 76; Resp 15; Pulse Ox 100% on R/A; Pain 7/10; ss 19:25 BP 143 / 94; Pulse 84; Resp 16 S; Temp 99.4(O); Pulse Ox 100% on R/A; bb 17:03 Body Mass Index 26.93 (68.95 kg, 160.02 cm) aa5 MDM: 17:54 Patient medically screened. [facility] 18:04 Data reviewed: vital signs, nurses notes, lab test result(s), EKG, radiologic studies, anupam plain films. 04/15 18:00 Order name: Basic Metabolic Panel; Complete Time: 19:05 [facility] 04/15 18:00 Order name: CBC with Diff [facility] 04/15 18:00 Order name: Ckmb; Complete Time: 19:05 [facility] 04/15 18:00 Order name: CPK; Complete Time: 19:05 [facility] 04/15 18:00 Order name: LFT's; Complete Time: 19:05 [facility] 04/15 18:00 Order name: Magnesium; Complete Time: 19:05 [facility] 04/15 18:00 Order name: NT PRO-BNP; Complete Time: 19:05 [facility] 04/15 18:00 Order name: PT-INR; Complete Time: 19:05 [facility] 04/15 18:00 Order name: Ptt, Activated; Complete Time: 19:05 [facility] 04/15 18:00 Order name: Troponin (emerg Dept Use Only); Complete Time: 19:05 [facility] 04/15 18:04 Order name: Type And Screen [facility] 04/15 18:09 Order name: Bb Add On bd 04/15 18:24 Order name: Packed RBC Leukored -1 [facility] 04/15 19:51 Order name: Manual Differential [facility] 04/15 18:00 Order name: XRAY Chest (1 view); Complete Time: 19:05 [facility] 04/15 18:00 Order name: EKG; Complete Time: 18:01 [facility] 04/15 18:00 Order name: Cardiac monitoring; Complete Time: 18:19 [facility] 04/15 18:00 Order name: EKG - Nurse/Tech; Complete Time: 18:34 [facility] 04/15 18:00 Order name: IV Saline Lock; Complete Time: 18:19 [facility] 04/15 18:00 Order name: Labs collected and sent; Complete Time: 18:19 [facility] 04/15 18:00 Order name: O2 Per Protocol; Complete Time: 18:19 [facility] 04/15 18:00 Order name: O2 Sat Monitoring; Complete Time: 18:19 [facility] 04/15 18:00 Order name: Oxygen; Complete Time: 18:18 [facility] Administered Medications: 18:28 Drug: Benadryl 25 mg Route: IVP; Site: Port-a-cath; ss 18:54 Follow up: Response: No adverse reaction; Marked relief of symptoms; Pain is decreased ss 18:30 Drug: Phenergan 12.5 mg Route: IVP; Site: Port-a-cath; ss 18:54 Follow up: Response: No adverse reaction; Marked relief of symptoms; Pain is decreased ss 18:32 Drug: Dilaudid 1 mg Route: IVP; Site: Port-a-cath; ss 18:54 Follow up: Response: No adverse reaction; No change in condition; Pain is decreased ss 18:40 Drug: foLIC Acid 1 mg Route: IVPB; Site: Port-a-cath; ss 18:54 Follow up: IV Status: Completed infusion ss 19:12 Drug: Magnesium Sulfate 1 grams Route: IVPB; Infused Over: 1 hrs; Site: Port-a-cath; bb 20:24 Follow up: IV Status: Completed infusion; IV Intake: 100ml bb 19:15 Drug: Potassium Effervescent Tablet 25 mEq Route: PO; bb 20:24 Follow up: Response: No adverse reaction bb Disposition: 04/15/18 18:31 Hospitalization ordered by Sai Rivers for Observation. Preliminary diagnosis are Sickle-cell disorders, Anemia, unspecified, Chest pain, unspecified, Hypokalemia, Hypomagnesemia. - Bed requested for Telemetry/MedSurg (observation). - Status is Observation. bb - Condition is Stable. - Problem is new. - Symptoms have improved. UTI on Admission? No Signatures: Dispatcher [employer] EDMS Solange De La Cruz rg2 Spenser Luis MD MD cha Ballard, Brenda RN RN bb Ceceila Toussaint RN RN aa5 Ivone Coto RN RN ss Corrections: (The following items were deleted from the chart) 19:06 18:31 Hospitalization Ordered by Sai Rivers MD for Observation. Preliminary [facility] diagnosis is Sickle-cell disorders; Anemia, unspecified; Chest pain, unspecified. Bed requested for Telemetry/MedSurg (observation). Status is Observation. Condition is Stable. Problem is new. Symptoms have improved. UTI on Admission? No. anupam 20:26 19:06 04/15/2018 18:31 Hospitalization Ordered by Sai Rivers MD for Observation. rg2 Preliminary diagnosis is Sickle-cell disorders; Anemia, unspecified; Chest pain, unspecified; Hypokalemia; Hypomagnesemia. Bed requested for Telemetry/MedSurg (observation). Status is Observation. Condition is Stable. Problem is new. Symptoms have improved. UTI on Admission? No. anupam 21:11 20:26 04/15/2018 18:31 Hospitalization Ordered by Sai Rivers MD for Observation. bb Preliminary diagnosis is Sickle-cell disorders; Anemia, unspecified; Chest pain, unspecified; Hypokalemia; Hypomagnesemia. Bed requested for Telemetry/MedSurg (observation). Status is Observation. Condition is Stable. Problem is new. Symptoms have improved. UTI on Admission? No. rg2
[2018-04-15 18:33] LABS: Absolute Lymphocytes (CBC) 4.5 K/uL (0.7-4.9); Absolute Monocytes 2.3 K/uL (0.1-1.3); Absolute Neutrophil 7.7 K/uL (1.8-8.0); Basophils % 2.8 % (0-1.3); Eosinophils % 0.8 % (0-4.4); Lymphocytes % 29.8 % (15.3-44.8); MCH 32.3 pg (27.0-35.0); MCV 96.7 fL (80-100); MPV 8.4 fL (7.6-11.3); Monocytes % 15.3 % (3.3-12.3); RBC Red Blood Cell Count 1.94 M/uL (3.86-4.86)
--- NOTE | 2018-04-15 18:36 | RAD REPORT ---
EXAM DESCRIPTION: Bhavint Single View04/15/2018 6:25 pm CLINICAL HISTORY: Chest pain COMPARISON: January 2018 FINDINGS: The lungs appear clear of acute infiltrate. Upper lobe vessels are prominent which may indicate pulmonary venous hypertension The heart is borderline enlarged. A central venous catheter has its tip in the superior vena cava
[2018-04-15 18:39] LABS: Hematocrit 18.8 % (36.0-45.0)
[2018-04-15 18:46] LABS: ALT/SGPT 78 U/L (12-78); AST/SGOT 124 U/L (15-37); Albumin 3.1 g/dL (3.4-5.0); Alkaline Phosphatase 160 U/L (45-117); BUN Blood Urea Nitrogen 6 mg/dL (7-18); Bicarbonate 26 mmol/L (21-32); Bilirubin Direct 0.6 mg/dL (0-0.2); Bilirubin Total 1.9 mg/dL (0.2-1.0); CKMB Creatine Kinase MB < 1.0 ng/mL (0.3-3.6); Creatine Phosphokinase 19 U/L (26-192); Glucose Level 94 mg/dL (74-106); Magnesium 1.7 mg/dL (1.8-2.4); NT PRO-BNP 203 pg/mL (<125); Potassium 3.4 mmol/L (3.5-5.1); Protein, Total 9.1 g/dL (6.4-8.2); Sodium Level 142 mmol/L (136-145)
[2018-04-15 19:01] LABS: Protime INR 1.33
[2018-04-15] MEDS ORDERED: MAGNESIUM SULFATE 1 gm IVPB 1 GM/100 ML BAG IV ONE (19:16)
[2018-04-15] MEDS ORDERED: POTASSIUM 25 MEQ EFFERV TAB ONE (19:16)
[2018-04-15 19:49] LABS: Anisocytosis 3+; Blood Morphology Comment NOTED (NOT SEEN); Macrocytosis 2+; Platelet Estimate ADEQ; Polychromasia 1+
[2018-04-15 19:50] LABS: Target Cells 2+
[2018-04-15] MEDS ORDERED: ACETAMINOPHEN 500 MG TAB PO PRN (20:01)
[2018-04-15] MEDS ORDERED: HYDROMORPHONE HCL 1 MG/ML INJ IV PRN (20:01)
[2018-04-15] MEDS ORDERED: ONDANSETRON 4 MG/2 ML VIAL IV PRN (20:01)
[2018-04-15] MEDS ORDERED: ALBUTEROL 2.5 MG/3 ML NEB SOL NEB PRN (20:01)
[2018-04-15] MEDS: HYDROCODONE/APAP 10/325 TAB PO PRN (21:58)
[2018-04-15 22:21] VITALS: BMI 27.1
[2018-04-16] MEDS: DIPHENHYDRAMINE 50 MG/ML VIAL IV PRN ×4 (00:26→20:09)
[2018-04-16] MEDS: NA CHLORIDE 0.9% 1,000 ML IV SCH ×3 (00:26→17:00)
[2018-04-16] MEDS: PROMETHAZINE 25 MG TABLET PO PRN ×2 (00:27→05:57)
[2018-04-16] MEDS: IPRATROPIUM BROM 0.5MG/2.5ML NEB SCH ×4 (01:43→20:45)
[2018-04-16] MEDS: HYDROCODONE/APAP 10/325 TAB PO PRN (03:16)
[2018-04-16] MEDS ORDERED: Magnesium Sulfate 2gm IVPB 2 G/50 ML BAG IV ONE (04:54)
[2018-04-16] MEDS: HYDROMORPHONE HCL 1 MG/ML INJ IV PRN ×4 (05:58→18:12)
[2018-04-16 06:34] LABS: Absolute Lymphocytes (CBC) 5.6 K/uL (0.7-4.9); Absolute Monocytes 2.7 K/uL (0.1-1.3); Absolute Neutrophil 10.2 K/uL (1.8-8.0); Eosinophils % 1.5 % (0-4.4); Hematocrit 17.6 % (36.0-45.0); Lymphocytes % 29.7 % (15.3-44.8); MCH 32.5 pg (27.0-35.0); MCV 97.2 fL (80-100); MPV 8.6 fL (7.6-11.3); Monocytes % 14.1 % (3.3-12.3); RBC Red Blood Cell Count 1.81 M/uL (3.86-4.86)
[2018-04-16 06:36] LABS: Protime INR 1.26
--- NOTE | 2018-04-16 06:46 | EKG ---
Test Date: 2018-04-15 Test Time: 18:26:11 Cycle Analyst: MEASUREMENT RESULTS: Intervals: Rate: 83 VA: 170 QRSD: 90 QT: 412 QTc: 484 [place]: P: 61 VA: 170 QRS: 30 T: 44 INTERPRETIVE STATEMENTS: Sinus rhythm with occasional premature ventricular complexes Prolonged QT Abnormal ECG Compared to ECG 01/29/2018 08:35:03 Ventricular premature complex(es) now present Electronically Signed On 04-16-18 06:45:12 CDT by Javid Randhawa
[2018-04-16 06:50] LABS: ALT/SGPT 84 U/L (12-78); AST/SGOT 146 U/L (15-37); Albumin 2.9 g/dL (3.4-5.0); Alkaline Phosphatase 195 U/L (45-117); BUN Blood Urea Nitrogen 8 mg/dL (7-18); Bicarbonate 28 mmol/L (21-32); Glucose Level 115 mg/dL (74-106); Potassium 3.3 mmol/L (3.5-5.1); Protein, Total 8.4 g/dL (6.4-8.2); Sodium Level 142 mmol/L (136-145)
--- NOTE | 2018-04-16 07:34 | P.HP ---
Certification for Inpatient Patient admitted to: Observation With expected LOS: <2 Midnights Patient will require the following post-hospital care: None Practitioner: I am a practitioner with admitting privileges, knowledge of patient current condition, hospital course, and medical plan of care. Services: Services provided to patient in accordance with Admission requirements found in Title 42 Section 412.3 of the Code of Federal Regulations Patient History Date of Service: 04/15/18 Reason for admission: Sickle cell pain crisis History of Present Illness: Patient is a 38-year-old female who was well known to me from multiple prior admissions in the past. She has been diagnose with sickle cell pain crisis. She was seeing her sickle cell physician Dr. Guaman, and he had done some lab workup today. He told her to come to the emergency room results of her lab shown her hemoglobin was close to 6. Normally her hemoglobin is around 7.4-8. I have known patient for many years down and most of the time her mother comes to pick her up in the past. She has a child who is 16 years old now. She states she was having some pain in her chest and her sickle cell physician wanted her to be evaluated. Patient was admitted to the hospital for further evaluation. According to patient she also has elevated iron levels which is cause some liver issues. 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 Allergies butorphanol tartrate [From Stadol] Allergy (Severe, Verified 08/11/17 06:27) seizures ketorolac tromethamine [From Toradol] Allergy (Severe, Verified 08/11/17 06:27) SEIZURES ondansetron HCl [From Zofran] Allergy (Severe, Verified 08/11/17 06:27) SEIZURES morphine Allergy (Intermediate, Verified 08/11/17 06:27) Hives fentanyl Allergy (Verified 04/16/18 03:32) Itching/Hives/Rash ondansetron [From Zofran (as hydrochloride)] Allergy (Verified 04/16/18 03:32) seizures tramadol Allergy (Verified 08/11/17 06:27) seizure trazodone Allergy (Verified 08/11/17 06:27) seizure metoclopramide [From Reglan] Adverse Reaction (Verified 08/11/17 06:27) SEIZURES Zofran (as Allergy (Uncoded 08/11/17 06:27) Unknown Zofran (as hydrochl Allergy (Uncoded 08/11/17 06:27) Unknown Zofran (as hydrochlori Allergy (Uncoded 08/11/17 18:30) Unknown Zofran (as hydrochloride) Allergy (Uncoded 12/01/17 03:47) Unknown Home Medications: ALPRAZolam [Xanax*] 2 mg PO TID PRN 03/07/17 Gabapentin [Neurontin*] 300 mg PO TID 03/07/17 Hydrocodone 10/APAP 325 [Kimberly 10/325*] 2 tab PO Q4H PRN 03/07/17 Hydroxyurea [Hydrea*] 500 mg PO TID 03/07/17 Mirtazapine [Remeron*] 45 mg PO BEDTIME 03/07/17 Promethazine HCl 25 mg PO Q4H PRN 03/07/17 hydrOXYzine HCl [Atarax] 50 mg PO BID PRN 03/07/17 levETIRAcetam [Keppra*] 250 mg PO TID 03/07/17 Erythromycin Opth [Erythromycin Eye Ointment*] 1 appl EACH EYE BID #1 tube 08/11 - Past Medical/Surgical History Has patient received pneumonia vaccine in the past: No Diabetic: No -: Sickle cell disease -: History of CVA -: CAD -: Hypertension -: Seizure disorder -: Insomnia -: mi -: Right axillary lumpectomy -: Splenectomy -: Cholecystectomy -: Partial hysterectomy -: 6 portacaths -: 6 piccs -: Psychosocial/ Personal History: The patient is . She has 2 children. - Family History Father Medical History: Heart disease, Hypertension Mother Medical History: Hypertension - Social History Smoking Status: Never smoker Alcohol use: No CD- Drugs: No Caffeine use: Yes Place of Residence: Home Review of Systems 10-point ROS is otherwise unremarkable Physical Examination - Vital Signs Temperature: 97.7 F Blood Pressure: 143/80 Pulse: 83 Respirations: 20 Pulse Ox (%): 100 - Physical Exam General: Alert, In no apparent distress, Oriented x3 HEENT: Atraumatic, PERRLA, Mucous membr. moist/pink, Other (dentures), EOMI, Sclerae nonicteric Neck: Supple, 2+ carotid pulse no bruit, No LAD, Without JVD or thyroid abnormality Respiratory: Clear to auscultation bilaterally, Normal air movement Cardiovascular: Regular rate/rhythm, Normal S1 S2, Systolic murmur Gastrointestinal: Normal bowel sounds, Soft and benign, Non-distended, No tenderness Musculoskeletal: No clubbing, No swelling, No tenderness Integumentary: No rashes Neurological: Normal gait, Normal speech, Normal tone, Normal affect, Abnormal strength (one arm is contracted) Lymphatics: No axilla or inguinal lymphadenopathy - Studies Laboratory Data (last 24 hrs) 04/15/18 18:11: PT 15.7 H, INR 1.33, APTT 162.1 H* 04/15/18 18:11: WBC 14.9 H, Hgb 6.3 L*, Hct 18.8 L*, Plt Count 250 04/15/18 18:11: Sodium 142, Potassium 3.4 L, BUN 6 L, Creatinine 0.80, Glucose 94, Magnesium 1.7 L, Total Bilirubin 1.9 H, AST 124 H, ALT 78, Alkaline Phosphatase 160 H Assessment & Plan - Problems (Diagnosis) (1) Sickle cell pain crisis Current Visit: Yes Status: Acute (2) Cocaine abuse Onset Date: 01/30/17 Current Visit: No Status: Acute (3) Dehydration Current Visit: No Status: Acute (4) Dyspnea Current Visit: No Status: Acute Qualifiers: (5) CAD (coronary artery disease) Onset Date: 03/07/17 Current Visit: No Status: Chronic Qualifiers: (6) History of CVA (cerebrovascular accident) Current Visit: No Status: Chronic (7) History of cerebellar stroke Current Visit: No Status: Chronic (8) Seizure disorder Onset Date: 03/07/17 Current Visit: No Status: Chronic - Plan Plan: 1. Continue with IV hydration 2. Continue with IV antibiotics 3. Continue with pain control 4. Outpatient follow with her kraft digester operator 5. Transfuse 1-2 units of packed red blood cells and get an echocardiogram to evaluate her heart murmur 6. Serial H&H, and we will monitor LFTs to evaluate her questionable hemochromatosis 7. GI and DVT prophylaxis - Advance Directives Does patient have a Living Will: No Does patient have a Durable POA for Healthcare: No
[2018-04-16 08:13] LABS: Anisocytosis 3+; Blood Morphology Comment NOTED (NOT SEEN); Platelet Estimate ADEQ; Polychromasia 1+
[2018-04-16 08:14] LABS: Target Cells 2+
[2018-04-16] MEDS ORDERED: NA CHLORIDE 0.9% 250 ML ONE (15:10)
--- NOTE | 2018-04-16 19:50 | P.PN ---
Subjective Date of Service: 04/16/18 Chief Complaint: Sickle cell pain crisis She is a complaining of generalized pain, but she does not look in distress. No fever. Physical Examination - Vital Signs Temperature: 97.9 F Blood Pressure: 154/86 Pulse: 85 Respirations: 17 Pulse Ox (%): 100 - Physical Exam General: Alert, In no apparent distress Respiratory: Clear to auscultation bilaterally, Normal air movement Cardiovascular: Regular rate/rhythm, Normal S1 S2 Gastrointestinal: Normal bowel sounds, No tenderness Musculoskeletal: No tenderness Integumentary: No rashes Neurological: Normal speech, Normal tone, Normal affect - Studies Medications List Reviewed: Yes Assessment And Plan - Current Problems (Diagnosis) (1) Sickle cell pain crisis Onset Date: 04/16/18 Current Visit: Yes Status: Acute (2) Chest pain Onset Date: 09/25/16 Current Visit: No Status: Acute Qualifiers: Chest pain type: unspecified Qualified Code(s): R07.9 - Chest pain, unspecified (3) Seizure disorder Onset Date: 03/07/17 Current Visit: No Status: Chronic - Plan Continue titrating her pain medication. She had ordered 2 units of PRBCs, so far she has transfused 1 unit. It may be ready to go home tomorrow if her symptoms improve. - Code Status/Comfort Care Code Status Assessed: Yes Code Status: Full Code
[2018-04-16] MEDS ORDERED: MIRTAZAPINE 15 MG TAB PO SCH (21:00)
[2018-04-16] MEDS: HYDROXYUREA 500 MG CAP PO SCH (21:00)
[2018-04-16] MEDS: ALPRAZOLAM 1 MG TABLET PO PRN (22:18)
[2018-04-16] MEDS: levETIRAcetam 500 MG TAB PO SCH (22:31)
[2018-04-16] MEDS: GABAPENTIN 100 MG CAP PO SCH (22:33)
[2018-04-17] MEDS ORDERED: HYDROMORPHONE HCL 2 MG/ML inj IM ONE (01:03)
[2018-04-17] MEDS: HYDROMORPHONE HCL 1 MG/ML INJ IV PRN ×3 (01:32→09:52)
[2018-04-17] MEDS: DIPHENHYDRAMINE 50 MG/ML VIAL IV PRN ×2 (01:32→09:54)
[2018-04-17] MEDS: IPRATROPIUM BROM 0.5MG/2.5ML NEB SCH ×3 (01:56→14:33)
[2018-04-17] MEDS ORDERED: NA CHLORIDE 0.9% 100 ML ONE (02:29)
[2018-04-17] MEDS: NA CHLORIDE 0.9% 1,000 ML IV SCH ×3 (03:00→13:00)
[2018-04-17 07:11] LABS: Absolute Lymphocytes (CBC) 4.2 K/uL (0.7-4.9); Absolute Monocytes 2.3 K/uL (0.1-1.3); Absolute Neutrophil 8.2 K/uL (1.8-8.0); Basophils % 2.5 % (0-1.3); Eosinophils % 3.5 % (0-4.4); Hematocrit 25.5 % (36.0-45.0); Lymphocytes % 26.9 % (15.3-44.8); MCH 31.9 pg (27.0-35.0); MCV 92.5 fL (80-100); MPV 8.9 fL (7.6-11.3); Monocytes % 14.7 % (3.3-12.3); RBC Red Blood Cell Count 2.76 M/uL (3.86-4.86)
[2018-04-17 07:13] LABS: BUN Blood Urea Nitrogen 10 mg/dL (7-18); Bicarbonate 30 mmol/L (21-32); Glucose Level 121 mg/dL (74-106); Potassium 3.6 mmol/L (3.5-5.1); Sodium Level 141 mmol/L (136-145)
[2018-04-17 07:53] LABS: Platelet Estimate ADEQ
[2018-04-17 07:54] LABS: Anisocytosis 3+; Blood Morphology Comment NOTED (NOT SEEN); Polychromasia 2+; Target Cells 2+
[2018-04-17] MEDS: levETIRAcetam 500 MG TAB PO SCH ×2 (09:53→13:02)
[2018-04-17] MEDS: GABAPENTIN 100 MG CAP PO SCH ×2 (09:54→13:01)
[2018-04-17] MEDS: HYDROXYUREA 500 MG CAP PO SCH ×2 (09:55→14:00)
[2018-04-17 11:38] VITALS: O2SAT 100
--- NOTE | 2018-04-17 12:40 | ECHO ---
HEIGHT: 5 ft 3 in WEIGHT: 152 lb 14.4 oz DATE OF STUDY: 04/16/[address]: Sai Rivers MD 2-DIMENSIONAL: YES M.MODE: YES DOPPLER: YES COLOR FLOW: YES TDS: NO PORTABLE: NO DEFINITY: NO BUBBLE STUDY: NO DIAGNOSIS: MURMUR CARDIAC HISTORY: CATHERIZATION: NO SURGERY: NO PROSTHETIC VALVE: NO PACEMAKER: NO MEASUREMENTS (cm) DIASTOLIC (NORMALS) SYSTOLIC (NORMALS) IVSd 1.0 (0.6-1.2) LA Diam 4.6 (1.9-4.0) LVEF 73% LVIDd 4.3 (3.5-5.7) LVIDs 2.5 (2.0-3.5) %FS 41% LVPWd 1.0 (0.6-1.2) Ao Diam 2.9 (2.0-3.7) 2 DIMENSIONAL ASSESSMENT: RIGHT ATRIUM: NORMAL LEFT ATRIUM: NORMAL RIGHT VENTRICLE: NORMAL LEFT VENTRICLE: NORMAL TRICUSPID VALVE: NORMAL MITRAL VALVE: NORMAL PULMONIC VALVE: NORMAL AORTIC VALVE: NORMAL PERICARDIAL EFFUSION: NONE AORTIC ROOT: NORMAL LEFT VENTRICULAR WALL MOTION: NORMAL DOPPLER/COLOR FLOW: TRACE TRICUSPID REGURGITATION. COMMENTS: TRACE TRICUSPID REGURGITATION. NORMAL RIGHT VENTRICULAR SYSTOLIC PRESSURE. NORMAL LEFT VENTRICULAR SIZE AND FUNCTION. NO WALL MOTION ABNORMALITY. NO EFFUSION. TECHNOLOGIST: Antony CAAB
[2018-04-17] MEDS: ALPRAZOLAM 1 MG TABLET PO PRN (13:02)
[2018-04-17] MEDS ORDERED: HEPARIN 500 UNIT/5 ML SYR IV PRN (17:03)
[2018-04-17 17:12] VITALS: BP 109/69; TEMP 97.6
--- NOTE | 2018-04-17 18:34 | P.SSS ---
Patient History Date of Service: 04/17/18 Reason for admission: Sickle cell pain crisis History of Present Illness: Patient is a 38-year-old female who was well known to me from multiple prior admissions in the past. She has been diagnose with sickle cell pain crisis. She was seeing her sickle cell physician Dr. Guaman, and he had done some lab workup today. He told her to come to the emergency room results of her lab shown her hemoglobin was close to 6. Normally her hemoglobin is around 7.4-8. I have known patient for many years down and most of the time her mother comes to pick her up in the past. She has a child who is 16 years old now. She states she was having some pain in her chest and her sickle cell physician wanted her to be evaluated. Patient was admitted to the hospital for further evaluation. According to patient she also has elevated iron levels which is cause some liver issues. 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 Allergies butorphanol tartrate [From Stadol] Allergy (Severe, Verified 08/11/17 06:27) seizures ketorolac tromethamine [From Toradol] Allergy (Severe, Verified 08/11/17 06:27) SEIZURES ondansetron HCl [From Zofran] Allergy (Severe, Verified 08/11/17 06:27) SEIZURES morphine Allergy (Intermediate, Verified 08/11/17 06:27) Hives fentanyl Allergy (Verified 04/16/18 03:32) Itching/Hives/Rash ondansetron [From Zofran (as hydrochloride)] Allergy (Verified 04/16/18 03:32) seizures tramadol Allergy (Verified 08/11/17 06:27) seizure trazodone Allergy (Verified 08/11/17 06:27) seizure metoclopramide [From Reglan] Adverse Reaction (Verified 08/11/17 06:27) SEIZURES Zofran (as Allergy (Uncoded 08/11/17 06:27) Unknown Zofran (as hydrochl Allergy (Uncoded 08/11/17 06:27) Unknown Zofran (as hydrochlori Allergy (Uncoded 08/11/17 18:30) Unknown Zofran (as hydrochloride) Allergy (Uncoded 12/01/17 03:47) Unknown Home Medications: ALPRAZolam [Xanax*] 2 mg PO TID PRN 03/07/17 Gabapentin [Neurontin*] 300 mg PO TID 03/07/17 Hydrocodone 10/APAP 325 [[place] 10/325*] 2 tab PO Q4H PRN 03/07/17 Hydroxyurea [Hydrea*] 500 mg PO TID 03/07/17 Mirtazapine [Remeron*] 45 mg PO BEDTIME 03/07/17 Promethazine HCl 25 mg PO Q4H PRN 03/07/17 hydrOXYzine HCl [Atarax] 50 mg PO BID PRN 03/07/17 levETIRAcetam [Keppra*] 250 mg PO TID 03/07/17 Erythromycin Opth [Erythromycin Eye Ointment*] 1 appl EACH EYE BID #1 tube 08/11 - Past Medical/Surgical History Has patient received pneumonia vaccine in the past: No Diabetic: No -: Sickle cell disease -: History of CVA -: CAD -: Hypertension -: Seizure disorder -: Insomnia -: mi -: Right axillary lumpectomy -: Splenectomy -: Cholecystectomy -: Partial hysterectomy -: 6 portacaths -: 6 piccs -: Psychosocial/ Personal History: The patient is . She has 2 children. - Family History Father -: Heart disease, Hypertension Mother -: Hypertension - Social History Smoking Status: Never smoker Alcohol use: No CD- Drugs: No Caffeine use: Yes Place of Residence: Home Review of Systems 10-point ROS is otherwise unremarkable General: As per HPI Physical Examination - Vital Signs Temperature: 97.6 F Blood Pressure: 109/69 Pulse: 79 Respirations: 18 Pulse Ox (%): 100 - Physical Exam General: Alert, In no apparent distress HEENT: Atraumatic, PERRLA, Mucous membr. moist/pink, EOMI, Sclerae nonicteric Neck: Supple, 2+ carotid pulse no bruit, No LAD, Without JVD or thyroid abnormality Respiratory: Clear to auscultation bilaterally, Normal air movement Cardiovascular: Regular rate/rhythm, Normal S1 S2 Gastrointestinal: Normal bowel sounds, No tenderness Musculoskeletal: No tenderness Integumentary: No rashes Neurological: Normal gait, Normal speech, Normal strength at 5/5 x4 extr, Normal tone, Normal affect Lymphatics: No axilla or inguinal lymphadenopathy - Diagnosis (Problem(s)) (1) Sickle cell crisis Onset Date: 09/06/15 Status: Acute (2) Anemia Onset Date: 09/06/15 Status: Chronic Qualifiers: Anemia type: other cause Other causes of anemia: other cause, not classified Qualified Code(s): D64.89 - Other specified anemias (3) CAD (coronary artery disease) Onset Date: 03/07/17 Status: Chronic Qualifiers: (4) Chronic pain disorder Onset Date: 03/07/17 Status: Chronic (5) History of CVA (cerebrovascular accident) Status: Chronic (6) History of DC (myocardial infarction) Status: Chronic (7) History of cerebellar stroke Status: Chronic (8) Seizure disorder Onset Date: 03/07/17 Status: Chronic Treatment Summary: Overall during the hospital stay patient remained stable The patient was initially admitted to the hospital for sickle cell crisis causing her acute anemia. Patient was transfused 1 unit of hemoglobin here in the hospital which helped raise her hemoglobin to 8.3. Patient did well overall here in the hospital and thus was discharged home under stable condition. Patient was asked to follow up with her primary care provider along with heme oncologist for close follow up. Patient was asked to restart all her home medication including hydroxyurea to help control her sickle cell crisis. Patient demonstrated understanding and thus was discharged home under stable condition. While here in the hospital patient was requesting a lot of pain medication as patient was stating that she has been having a lot of pain however patient did appear drowsy a lot of times when she was asking for pain medication. Patient was educated extensively on the use of pain medication appropriately for her pain management and was asked to follow up with her primary care doctor along with the pain management doctor to see which she could use to adequately control her pain without having the side affects the patient demonstrated understanding and thus discharged home under stable condition - Disposition Disposition: ROUTINE DISCHARGE Condition: GOOD Diet: Regular Activity: Ad beata
== END 2018-04-17 17:27 | disposition home or self-care (01) ==
LOC: ER 16:51 → ERHOLD 18:34 → 4TH 20:39
PROVIDERS: ADMIT Hospitalist; ATTEND Hospitalist
PROC: 30233N1 Transfusion of Nonautologous Red Blood Cells into Peripheral Vein, Percutaneous Approach (ICD-10-PCS; principal; 2018-04-16)
DX: D57.00 Hb-SS disease with crisis, unspecified (principal); I25.10 Atherosclerotic heart disease of native coronary artery without angina pectoris; I10 Essential (primary) hypertension; G40.909 Epilepsy, unspecified, not intractable, without status epilepticus; I25.2 Old myocardial infarction; F14.10 Cocaine abuse, uncomplicated; E86.0 Dehydration; R06.00 Dyspnea, unspecified; Z86.73 Personal history of transient ischemic attack (TIA), and cerebral infarction without residual deficits
CPT/HCPCS: 36415 ×2; 36430; 71045; 80048 ×2; 80053; 80076; 82550; 82553; 83735; 83880; 84484; 85025 ×3; 85610 ×2; 85730 ×2; 86850; 86870; 86900; 86901; 86922 ×2; 93005; 93306; 94640; 96365; 96375; 99285; J1170 ×9; J1642; J2550; J3475 ×2; J7030 ×3; P9016 ×2

== ENCOUNTER 2018-06-04 10:37 | Inpatient (IN) | payer OTHER ==
--- OUTSIDE RECORDS SUMMARY | 2018-06-04 10:39 | XMS REPORT | Clinical Summary ---
:1980 Author Organization [facility] Address [address] [place] [address] Phone Care Team Providers Name Role Phone Unavailable Primary Care Provider Unavailable Allergies Active Allergy Reactions Severity Noted Date Comments Tramadol Other (See Comments) High 02/21/2014 Seizure Morphine Other (See Comments) 11/27/2013 seizures Butorphanol Tartrate Other (See Comments) 11/27/2013 seizures Weh-Ut-Snh-Jpophglt-Zfroi-Ykhi 10/01/2014 seizure Ketorolac Other (See Comments) 11/27/2013 [...] Pain 12/01/2013 Sickle cell anemia with crisis ([facility]) 11/30/2013 Iron overload due to repeated red blood cell transfusions 11/29/2013 History of drug abuse 11/29/2013 Sickle cell crisis (HCC) 11/28/2013 Total body pain 11/28/2013 Cough 11/28/2013 Encounters Date Type Specialty Care Team Description 01/29/2018 - Hospital Encounter Oncology Jerome Busch, 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 ([facility]);Total Mary, Deisy body pain MD Neal Sood Shamoon, MD 11/22/2017 Procedure Pass 11/22/2017 Surgery Manny Fuentes MD 11/04/2017 - Hospital Encounter Oncology Lsie De Jesus MD 11/26/2017 Vipul Mcgovern MD 09/26/2017 Procedure visit Oncology Kwesi Guaman Symptomatic anemia MD Justin (Primary Dx) Yaz Quan RN 09/25/2017 Procedure visit Oncology Kwesi Guaman 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) (Primary Traci Obregon RN Dx) 05/27/2017 - Hospital Encounter Oncology Lise De Jesus MD History of drug abuse 06/06/2017 after 06/03/2017 Family History Medical History Relation Name Comments [...] Procedure Name Priority Date/Time Associated Diagnosis Comments Kaelyn MATIAS 11/22/2017 1:14 PM CDT chest pain after 06/03/2017 Results EKG-SCANNED (02/11/2018 10:10 AM)Only the most [...] Cells 1+ few Sickle Cells 1+ few [place] Bodies 1+ few Artifact Present Platelet Conc Adequate Specimen Performing Laboratory Blood - Central Venous Line [address] [address] Narrative Received comment: User comments: Slide comments: CBC with platelet count + automated diff (02/08/2018 5:03 AM)Only the most recent of30 resultswithin the time period is included. Component [...] Performing Laboratory Blood - Central Venous Line [address] [address] CBC with platelet count + automated diff (02/08/2018 5:03 AM)Only the most recent of30 resultswithin the time period is included. Specimen Performing Laboratory Blood - Central Venous Line Narrative The following orders were created for panel order CBC with platelet count + automated diff. Procedure Abnormality Status --------- ------ CBC with platelet count ...[[id number]]AbnormalFinal result Please view results for these tests on the individual orders. Basic Metabolic Panel (02/08/2018 5:03 AM)Only the most recent of31 resultswithin the time period is included. Component [...] Performing Laboratory Blood - Central Venous Line [address] [address] Manual Differential (02/06/2018 5:58 AM)Only the most recent of12 resultswithin the time period is included. Component [...] Performing Laboratory Blood - Central Venous Line [address] [address] TRANSFUSION SERVICE REPORT - SCAN (02/05/2018 6:00 PM)Only the most recent of17 resultswithin the time period is included.Prepare Leuko-Red RBC (2017 11:54 PM)Only the most recent of6 resultswithin the time period is included. Component Value Ref Range Unit ABO O Pos UNIT NUMBER [id number] Status WORK IN PROGRESS Blood Bank Product RED BLOOD CELLS PRODUCT CODE [id number] Unit ABO O Pos UNIT NUMBER [id number] Status WORK IN PROGRESS Blood Bank Product RED BLOOD CELLS PRODUCT CODE [id number] CROSSMATCH COMPATIBLE Unit ABO O Pos UNIT NUMBER [id number] Status TRANSFUSED Blood Bank Product RED BLOOD CELLS PRODUCT CODE X0310E18 CROSSMATCH COMPATIBLE Unit ABO O Pos UNIT NUMBER [id number] Status TRANSFUSED Blood Bank Product RED BLOOD CELLS PRODUCT CODE [id number] Specimen Performing Laboratory Other SAF[employer] Transfuse Leuko-Red RBC (02/03/2018 10:59 PM)Only the most recent of14 resultswithin the time period is included.Type and screen, automated (2017 8:30 AM)Only the most recent of6 resultswithin the time period is included. Component Value Ref Range ABO/RH AUTOMATED (BEAKER) O POSITIVE Ab Scrn POSITIVEComment: Antibody identified within 7 days Specimen Performing Laboratory Blood [address] [address] Urinalysis w/Microscopic (02/01/2018 7:45 PM)Only the most recent of4 resultswithin the time period is included. Component Value Ref Range Color, UA Yellow Clarity, UA Hazy Specific [place], UA 1.009 1.001 - 1.035 pH, UA [...] Specimen Performing Laboratory Urine - Urine, Voided [address] [address] Antibody identification (01/30/2018 3:13 PM)Only the most recent of5 resultswithin the [...] - 1.7 % Specimen Performing Laboratory Blood [address] [address] Lactate dehydrogenase (LDH) (01/29/2018 4:28 PM)Only the most recent of2 resultswithin the time period is included. Component Value Ref Range LDH 989 (H) 125 - 220 U/L Specimen Performing Laboratory [address] [address] Ferritin (01/29/2018 4:28 PM)Only the most recent of2 resultswithin the time period is included. Component Value Ref Range Ferritin [address] (H) 5 - 275 ng/mL Specimen Performing Laboratory Blood [address] [address] CARDIAC CATH REPORT - SCAN (11/27/2017 8:52 PM)Calcium, Ionized (11/25/2017 4: 38 AM)Only the most recent of14 resultswithin the time period is included. Component Value Ref Range Calcium, Ion 1.10 (L) 1.12 - 1.27 mmol/L pH, Blood 7.30 Specimen Performing Laboratory [address] [address] Phosphorus (11/25/2017 4:38 AM)Only the most recent of15 resultswithin the time period is included. Component Value Ref Range Phosphorus 4.7 2.3 - 4.7 mg/dL Specimen Performing Laboratory [address] [address] Magnesium (11/25/2017 4:38 AM)Only the most recent of16 resultswithin the time period is included. Component Value Ref Range Magnesium 1.4 (L) 1.6 - 2.6 mg/dL Specimen Performing Laboratory [address] [address] Uric acid (11/24/2017 5:36 AM) Component Value Ref Range Uric Acid 4.8 2.6 - 7.2 mg/dL Specimen Performing Laboratory Blood [address] [address] Creatine Kinase (CK) (11/24/2017 5:36 AM) Component Value Ref Range Total CK 8 (L) 29 - 200 U/L Specimen Performing Laboratory Blood [address] [address] Potassium (11/23/2017 5:35 PM)Only the most recent of3 resultswithin the time period is included. Component Value Ref Range Potassium 5.5 (H) 3.5 - 5.1 meq/L Specimen Performing Laboratory Blood - Central Venous Line [address] [address] Narrative Call if K > 5.4 to renal [phone] Electrolytes (11/22/2017 12:30 PM) Component Value Ref Range Sodium 137 136 - 145 meq/L Potassium 5.4 (H) 3.5 - 5.1 meq/L Chloride 100 98 - 107 meq/L CO2 30 (H) 22 - 29 meq/L Specimen Performing Laboratory Blood - Portacath [address] [address] Narrative Call results [phone] B-type Natriuretic Factor (BNP) (11/21/2017 4:56 AM)Only the most recent of3 resultswithin the time period is included. Component Value Ref Range BNP 120 (H) 0 - 100 pg/mL Specimen Performing Laboratory Blood [address] [address] Blood gas, venous (11/20/2017 6:44 AM) Component Value Ref Range pH, Moisse 7.34 7.32 - 7.42 pCO2, Moises 63 (H) 41 - 51 mmHg pO2, Moises 133 (H) 25 - 40 mmHg O2 Sat, Moises 98.4 (H) 40.0 - 70.0 % HCO3, Moises 33 (H) 21 - 29 mmol/L Base Excess, Moises 6.6 (H) -2.0 - 3.0 mmol/L Patient Temperature 37.0 C FIO2 21.0 % Specimen Performing Laboratory Blood [address] [address] CBC (Hemogram only) (11/19/2017 6:25 AM) Component [...] Performing Laboratory Blood - Central Venous Line [address] [address] Hepatic function panel (11/17/2017 4:51 AM)Only the [...] Performing Laboratory Blood - Central Venous Line [address] [address] Prepare RBC (11/16/2017 11:55 PM) Component Value Ref Range Unit ABO O Pos UNIT NUMBER [id number] Status TRANSFUSED Blood Bank Product RED BLOOD CELLS PRODUCT CODE [id number] Unit ABO O Pos UNIT NUMBER [id number] Status TRANSFUSED Blood Bank Product RED BLOOD CELLS PRODUCT CODE [id number] CROSSMATCH COMPATIBLE CROSSMATCH COMPATIBLE Specimen Performing Laboratory [...] MD Report Verified Date/Time:11/16/2017 10:47:19 Reading Location: [facility] Radiology Reading Room Procedure Note Interface, [...] Report Verified Date/Time: 11/16/2017 10:47:19 Reading Location: [facility] Reading Room mandible less than 4 views [...] MD Report Verified Date/Time:11/16/2017 12:28:43 Reading Location: [facility] Radiology Reading Room Procedure Note Interface, [...] Report Verified Date/Time: 11/16/2017 12:28:43 Reading Location: [facility] Radiology Reading Room Anti-Mitochondrial Ab, reflex to titer (11/16/2017 9:35 AM) Component Value Ref Range Scan Result Specimen Performing Laboratory Blood - Central Venous Line [facility] [address] [place] [address] Actin (Smooth Muscle) Antibody, IgG (11/16/2017 9:35 [...] - Central Venous Line [facility] [employer] [address] [place] [address] Narrative Performing Lab [facility] [employer] [address] [place] [address] Irwin Marquez MD, PhD AMARILYS Titer & Pattern (11/16/2017 9:35 AM) Component Value Ref Range AMARILYS Titer 1:160 AMARILYS Pattern Multiple nuclear dots pattern Specimen Performing Laboratory Blood - Central Venous Line [address] [place] [address] Hepatitis panel, acute (11/16/2017 9:35 AM) Component Value Ref Range Hep A IgM Nonreactive Nonreactive Hep B C IgM Nonreactive Nonreactive Hepatitis C Ab Nonreactive Nonreactive hepatitis B Surface Ag Nonreactive Nonreactive Specimen Performing Laboratory Blood - Central Venous Line [address] [address] Anti-Nuclear Antibody (AMARILYS) (11/16/2017 9:35 AM) Component Value Ref Range AMARILYS Positive (A) Negative Specimen Performing Laboratory Blood - Central Venous Line [address] [address] XR abdomen / KUB 1 view (11/15/2017 [...] MD Report Verified Date/Time:11/15/2017 12:43:04 Reading Location: [facility] Radiology Reading Room Procedure Note Interface, [...] Report Verified Date/Time: 11/15/2017 12:43:04 Reading Location: [facility] Radiology Reading Room Endovaginal (11/15/2017 7:00 [...] MD Report Verified Date/Time:11/15/2017 09:03:15 Reading Location: [address] Ultrasound Reading Room Procedure Note Interface, [...] Report Verified Date/Time: 11/15/2017 09:03:15 Reading Location: [facility] [id number] Ultrasound Reading Room Lipase (11/15/2017 5:30 AM) Component Value Ref Range Lipase 95 (H) 8 - 78 U/L Specimen Performing Laboratory Blood - Central Venous Line [address] [address] Urine culture (11/14/2017 6:19 AM) Component Value Ref Range Result >100,000 col/mL skin valentino Specimen Performing Laboratory Urine - Urine, Clean Catch [address] [address] Blood culture (11/13/2017 11:20 PM)Only the most recent of2 resultswithin the time period is included. Component Value Ref Range Result No growth in 5 days Specimen Performing Laboratory Blood - Portacath [address] [address] ECHOCARDIOGRAM REPORT - SCAN (11/10/2017 1:20 PM)Comprehensive [...] Performing Laboratory Blood - Central Venous Line [address] [address] 2D Echo W/Doppler(CW/PW/Color) (11/09/2017 6:46 PM) Component Value Ref Range Ejection Fraction Specimen Performing Laboratory [facility] MKCKESSON CPACS Narrative Transthoracic Echocardiography Report (TTE) Demographics Patient NameSMITH, ALEESHIADate of Study11/09/2017 DIANA Gender Female Visit [id number] Race Black [id number] Number Date of 1980 [facility] Lise Physician Age 37 year(s) Assistant Counsel Luo Price RDCS Interpreting [facility] Needs to be [...] Study 11/09/2017 DIANA Gender Female Visit Number [id number] Race Black Room Number [id number] Number Date of 1980 Referring Neal Lezama Physician Age 37 year(s) Assistant Counsel Lou Price RDCS Interpreting [facility] Needs to [...] bedside (11/08/2017 7:20 PM) Specimen Performing Laboratory Explorra Narrative FINAL REPORT EXAMINATION:AP PORTABLE CHEST RADIOGRAPH [...] MD Report Verified Date/Time:11/08/2017 20:41:24 Reading Location: [address] Reading Room Procedure Note Interface, External [...] Report Verified Date/Time: 11/08/2017 20:41:24 Reading Location: [address] Reading Room Sodium, random urine (11/08/2017 5:33 AM) Component Value Ref Range Sodium Urine 65 meq/L Specimen Performing Laboratory Urine - [facility], [facility] [place] [address] Narrative Reference Range: No Normals Protein, random urine (11/08/2017 5:33 AM) Component Value Ref Range Protein, Urine 24 (H) 0 - 14 mg/dL Specimen Performing Laboratory [facility] [address] [address] Creatinine, random urine (11/08/2017 5:33 AM) Component Value Ref Range Creatinine, Ur 46.0 mg/dL Specimen Performing Laboratory Urine - Urine, Voided [address] [address] Narrative Reference Range: No Normals Eosinophil smear (11/08/2017 5:33 AM) Component Value Ref Range Eosinophil Smear No EOS seen No EOS seen Specimen Performing Laboratory Urine - Urine, Voided [address] [address] [address] abdomen/pelvis without iv contrast (11/08/2017 3:01 AM) Specimen Performing Laboratory Egenera RIS Narrative FINAL REPORT HISTORY : Abdominal [...] MD Report Verified Date/Time:11/08/2017 08:29:54 Reading Location: [facility] Diagnostic Imaging Reading Room - [place] [address] Procedure Note Interface, External Ris In - [...] Report Verified Date/Time: 11/08/2017 08:29:54 Reading Location: [facility] Diagnostic Imaging Reading Room - [facility] F1 1120 abdomen complete (11/07/2017 7:27 PM) Specimen Performing Laboratory GE RIS Narrative [...] MD Report Verified Date/Time:11/07/2017 19:58:17 Reading Location: [facility] C013 Consult Reading Room Procedure Note [...] Report Verified Date/Time: 11/07/2017 19:58:17 Reading Location: [facility] [id number] Consult Reading Room Lactic acid, venous, whole blood (11/07/2017 3:32 PM) Component Value Ref Range Lactate, Venous 0.9Comment: Specimen slightly hemolyzed 0.5 - 2.2 mmol/L Specimen Performing Laboratory [place] [address] Narrative Effective 12/22/2015: Units/Reference Range Change New: 0.5-2.2 mmol/LPrevious: 5-20 mg/dL ECG 12 lead (06/05/2017 8:52 PM) Specimen Performing Laboratory GE MUSE Narrative Ventricular Rate 80 BPM Atrial Rate 80 BPM P-R Interval 180 ms QRS Duration 76 ms Q-T Interval 394 ms QTC Calculation(Bazett) 454 ms P [place] 49 degrees R [place] 20 degrees T [place] 34 degrees Normal sinus rhythm Normal ECG [...] 394 ms QTC Calculation(Bazett) 454 ms P [place] 49 degrees R [place] 20 degrees T [place] 34 degrees Normal sinus rhythm Normal ECG When compared with ECG of 15-SEP-2016 00:53, No significant change was found Confirmed by Wade GARCIA BASANT ([id number]) on 06/07/2017 1:13:44 PM Troponin I (06/05/2017 8:40 PM) Component Value Ref Range Troponin I <0.01 0.00 - 0.03 ng/mL Specimen Performing Laboratory Blood - Central Venous Line [place] [id number] Narrative Troponin I (TnI) levels must be [...] Performing Laboratory Blood - Central Venous Line [address] [address] Narrative CK-MB Reference Range: <6.7Normal 6.7-10.0Borderline >10.0 Abnormal after 06/03/2017
--- OUTSIDE RECORDS SUMMARY | 2018-06-04 10:40 | XMS REPORT | Continuity of Care Document ---
:1980 Author Organization Interface Problems Problem Status Onset Classification Date Comments Source Date Reported SICKLE CELL CRISIS Active 09/08/[address] Final: 09/13/2014 [facility] Aplastic anemia Resolved Problem 09/13/2014 [facility] CVA - Resolved Problem 09/13/2014 [facility] Cerebrovascular [facility] accident Center Sickle cell anemia Resolved Problem 09/13/2014 [facility] TIA Resolved Problem 09/13/2014 [facility] HB-SS DISEASE W Active [facility] Medications Medication Details Route Status Patient Ordering Order Source Instructions Provider Date 12 HR Oxymorphone 30 mg=1 tab, Active [facility] Hydrochloride 30 PO, Q12H, 0 2014 Medical MG Extended Refill(s) Center Release Tablet [Opana] Lovenox 40 mg, 0.4 mL, No Longer [facility] Route: SUB-Q, Active 2014 Medical Drug form: INJ, Center [id number], Dosing Weight 70.591, kg, Start date: 09/10/14 19:00:00, Duration: 30 day, Stop date: 10/09/14 19:00:00Notes: (Same as: Lovenox) Promethazine 12.5 mg, 0.5 No Longer [facility] mL, Route: Active 2014 Medical IVPB, Drug Center form: INJ, Q4H, Dosing Weight 70.591, kg, PRN Nausea & Vomiting, Start date: 09/10/14 17:52:00, Duration: 30 day, Stop date: 10/10/14 17:51:00Notes: Do not give IV push. (Same as: Phenergan) Hydromorphone 15 mg, 30 mL, No Longer [facility] Route: IV, Active 2014 Medical Initial Loading Center Dose: 0.4mg, BIOMED TECH Dose: 0.2 mg, BIOMED TECH Lockout: 10 minutes, Continuous Basal Rate: 0 mg, 4 Hour Limit (In MG): 3, Drug Form: INJ, Continuous, Start date: 09/10/14 11:00:00, Duration: 30 day, Stop date: 10/10/14 10:...Notes: (Same as: Dilaudid) conc=0.5 mg/ml Hydromorphone BIOMED TECH Dose: ;Delay: ;Basal: Naloxone 0.04 mg, 0.1 [...] Drug 2015 Medical MG/ML Topical form: CRM, [place] Cream [Benadryl] Start date: 09/09/14 3:43:00, Stop [...] Source type Reported morphine Assertion Drug Active [facility] Stadol Assertion Drug Active [facility] Toradol Assertion Drug Active [facility] traMADol Assertion Drug Active [facility] Zofran Assertion Drug Active [facility] Immunizations Immunization Date Given Site Status Last Updated Comments Source Results Order Name Results Value Reference Date Interpretation Comments Source Range CHEM PANEL LDH 507 unit/L 98 - 192 09/11 [facility] ELECTROLYTE AGAP 10.8 meq/L 10.0 - 09/11 [facility] S 20.0 [facility] ELECTROLYTE Calcium Lvl 8.4 mg/dL 8.5 - 10.5 09/11 [facility] ELECTROLYTE CO2 27 meq/L 24 - 32 09/11 [facility] ELECTROLYTE Chloride Lvl 108 meq/L 95 - 109 09/11 [facility] ELECTROLYTE eGFR 130 09/11 3Result Comment: The eGFR is calculated using the CKD-EPI formula. In most young, healthy individuals the eGFR will be > 90 mL/min/1.73m2. The eGFR declines with age. An eGFR of 60-89 may be normal in [facility] mL/min/1.73 some populations, particularly the elderly, for whom the CKD-EPI formula has not been extensively validated. Use of the eGFR is not recommended in the following populations: [place] [address] Center Individuals with unstable creatinine concentrations, including [...] BMI. ELECTROLYTE BUN 4 mg/dL - 09/11 [facility] ELECTROLYTE Glucose Lvl 82 mg/dL 70 - 99 09/11 6Interpretive Data: Adult reference range values reflect the clinical guidelines [facility] of the [employer]. [facility] ELECTROLYTE Sodium Lvl 142 meq/L 135 - 145 09/11 [facility] ELECTROLYTE Creatinine 0.7 mg/dL 0.5 - 1.4 09/11 [facility] ELECTROLYTE Potassium 3.8 meq/L 3.5 - 5.1 09/11 [facility] HEMATOLOGY Retic Auto 16.5 % 0.5 - 1.5 09/11 [facility] HEMATOLOGY RDW 25.5 % 11.5 - 09/11 [facility] 14. [facility] HEMATOLOGY MPV 8.6 fL 7.4 - 10.4 09/11 [facility] HEMATOLOGY Platelet 213 K/CMM 133 - 450 09/11 [place] /2014 [facility] HEMATOLOGY Hct 19.8 % 36.0 - 09/11 [place] 48.0 /2014 [facility] HEMATOLOGY Hgb 6.7 g/dL 12.0 - 09/11 9Result [place] 16.0 /2014 Comment: [facility] Critical Center Result(s) called to Lexi Hendrix at 09/11/2014 03:23 by ORDAZ. Read back OK. HEMATOLOGY MCV 97.9 fL 80.0 - 09/11 [place] 98.0 /2014 [facility] HEMATOLOGY MCHC 34.0 g/dL 32.0 - 09/11 [place] 36.0 /2014 [facility] HEMATOLOGY MCH 33.3 pg 27.0 - 09/11 [place] 31.0 /2014 [facility] HEMATOLOGY WBC X 10x3 14.1 K/CMM 3.7 - 10.4 09/11 /2014 [facility] HEMATOLOGY RBC X 10x6 2.02 M/CMM 4.20 - 09/11 [place] 5.40 /2014 [facility] BLOOD BANK Antibody Positive 1 09/10 1Result Comment: 09/10/2014 09:24 [id number] [facility] RESULTS Scrn "Significant Findings of Positive Antibody Screen called to Magan Stinson at 0920 by SI. Read Back OK" Medical (09/10/14 8:01 AM) [place] BLOOD BANK ABO/Rh O POS 09/10 [place] RESULTS [facility] BLOOD BANK Path MEGHAN This 09/10 [facility] RESULTS patient Medical a positive [place] Direct Antiglobuli n Test (MEGHAN) with IgG [...] and concur with the resident's interpretat ion.CPT: 99694-WG BLOOD BANK Path AB Current 09/10 [facility] RESULTS testing Medical shows the Center [...] and concur with the resident's interpretat ion.CPT: 93380-VQ BLOOD BANK HX Antigen Le(a) neg 09/10 RESULTS /2014 [facility] BLOOD BANK HX Antigen Jk(b) pos 09/10 RESULTS /2014 [facility] BLOOD BANK HX Antigen K neg 09/10 RESULTS /2014 [facility] BLOOD BANK HX Antigen Jk(a) pos 09/10 RESULTS /2014 [facility] BLOOD BANK HX Antigen Fy(b) neg 09/10 RESULTS /2014 Medical Center BLOOD BANK HX Antigen Fy(a) pos 09/10 [place] RESULTS /2014 [facility] Center BLOOD BANK HX Antigen C pos 09/10 [place] RESULTS /2014 [facility] Center BLOOD BANK HX Antigen E neg 09/10 [place] RESULTS /2014 [facility] Center BLOOD BANK HX Antigen Cw neg 09/10 [place] RESULTS /2014 [facility] Center BLOOD BANK HX Antigen M pos 09/10 [place] RESULTS /2014 [facility] Center BLOOD BANK HX Antigen s pos 09/10 [place] RESULTS /2014 [facility] Center BLOOD BANK HX Antigen c neg 09/10 [place] RESULTS /2014 [facility] Center BLOOD BANK HX Antigen N neg 09/10 [place] RESULTS /2014 [facility] Center BLOOD BANK HX Antigen P1 pos 09/10 [place] RESULTS /2014 [facility] Center BLOOD BANK HX Antigen S neg 09/10 [place] RESULTS /2014 [facility] Center BLOOD BANK HX Antigen Le(b) neg 09/10 [place] RESULTS /2014 [facility] Center BLOOD BANK HISTORICAL Anti-S 09/10 [place] RESULTS AB [facility] BLOOD BANK HISTORICAL Anti-Bg(a) 09/10 [place] RESULTS AB [facility] Center BLOOD BANK HISTORICAL Anti-Cw 09/10 [place] RESULTS AB [facility] Center BLOOD BANK C3 Int Negative 09/10 [place] RESULTS /2014 Medical (09/10/14 8:01 AM) Center BLOOD BANK [place] Int See Note 09/10 2Result Comment: 09/10/2014 12:56 TIMARTI2 [place] non reactive with all cells tested. [facility] BLOOD BANK MEGHAN Gel Int Positive 09/10 [place] RESULTS [facility] (09/10/14 8:01 AM) Center BLOOD BANK AB Int Anti-E 09/10 [place] RESULTS [facility] BLOOD BANK AB Int Anti-c 09/10 [place] RESULTS /2014 [facility] HEMATOLOGY Hgb 6.3 g/dL 12.0 - 09/10 10Result [place] 16.0 2015 Comment: Medical Critical Center Result(s) called to JB LONDONO at _09/10/2014 07:45 byMK_. Read back OK. CHEM PANEL LDH 496 unit/L 98 - 192 09/10 [place] /2014 [facility] Center ELECTROLYTE AGAP 11.8 meq/L 10.0 - 09/10 [place] S 20.0 /2015 [facility] Center ELECTROLYTE eGFR 137 09/10 4Result Comment: The eGFR is calculated using the CKD-EPI formula. In most young, healthy individuals the eGFR will be > 90 mL/min/1.73m2. The eGFR declines with age. An eGFR of 60-89 may be normal in [facility] mL/min/1.73 some populations, particularly the elderly, [...] Lvl 8.3 mg/dL 8.5 - 10.5 09/10 [facility] ELECTROLYTE Chloride Lvl 113 meq/L 95 - 109 09/10 [facility] ELECTROLYTE Sodium Lvl 144 meq/L 135 - 145 09/10 [facility] ELECTROLYTE Glucose Lvl 81 mg/dL 70 - 99 09/10 7Interpretive Data: Adult reference range values reflect the clinical guidelines [facility] of [employer]. [facility] ELECTROLYTE BUN 4 mg/dL 7 - 22 09/10 [facility] ELECTROLYTE Creatinine 0.6 mg/dL 0.5 - 1.4 09/10 [facility] ELECTROLYTE CO2 23 meq/L 24 - 32 09/10 [facility] ELECTROLYTE Potassium 3.8 meq/L 3.5 - 5.1 09/10 [facility] HEMATOLOGY Hgb 6.2 g/dL 12.0 - 09/10 11Result [facility] 16.0 Comment: Medical Critical Center Result(s) called to Amy Fraga at 09/10/2014 06:07 by negrita. Read back OK. HEMATOLOGY WBC 15.9 K/CMM 3.7 - 10.4 09/10 [facility] HEMATOLOGY RBC 1.85 M/CMM 4.20 - 09/10 [facility] 5.40 /2014 [facility] HEMATOLOGY Hct 18.2 % 36.0 - 09/10 [facility] 48.0 [facility] HEMATOLOGY MCV 98.3 fL 80.0 - 09/10 [facility] 98.0 [facility] HEMATOLOGY RDW 25.4 % 11.5 - 09/10 [facility] 14.5 [facility] HEMATOLOGY Platelet 190 K/CMM 133 - 450 09/10 [facility] HEMATOLOGY MCH 33.6 pg 27.0 - 09/10 [facility] 31.0 [facility] HEMATOLOGY MCHC 34.2 g/dL 32.0 - 09/10 36.0 [facility] HEMATOLOGY MPV 8.5 fL 7.4 - 10.4 09/10 [facility] HEMATOLOGY Retic Auto 15.8 % 0.5 - 1.5 09/10 [facility] ELECTROLYTE AGAP 13.7 meq/L 10.0 - 09/09 [facility] S 20.0 [facility] ELECTROLYTE eGFR 96 09/09 5Result Comment: The eGFR is calculated using the CKD-EPI formula. In most young, healthy individuals the eGFR will be > 90 mL/min/1.73m2. The eGFR declines with age. An eGFR of 60-89 may be normal in [facility] mL/min/1.73 some populations, particularly the elderly, for whom the CKD-EPI formula has not been extensively validated. Use of the eGFR is not recommended in the following populations: [place] [address] Center Individuals with unstable creatinine concentrations, including [...] Lvl 9.1 mg/dL 8.5 - 10.5 09/09 [facility] ELECTROLYTE Potassium 3.7 meq/L 3.5 - 5.1 09/09 [facility] ELECTROLYTE Sodium Lvl 142 meq/L 135 - 145 09/09 [facility] ELECTROLYTE Glucose Lvl 106 mg/dL 70 - 99 09/09 8Interpretive Data: Adult reference range values reflect the clinical guidelines [facility] of [employer]. [facility] ELECTROLYTE Creatinine 0.9 mg/dL 0.5 - 1.4 09/09 [facility] ELECTROLYTE BUN 6 mg/dL 7 - 22 09/09 [facility]2015 [facility] ELECTROLYTE CO2 26 meq/L 24 - 32 09/09 [facility] S /2014 [facility] ELECTROLYTE Chloride Lvl 106 meq/L 95 - 109 09/09 [facility]2014 [facility] HEMATOLOGY Sickle Cell Slight 09/09 [facility]2014 [facility] HEMATOLOGY Schistocyte 1-3 per HPF None Seen 09/09 [facility] (09/09/14 2:13 AM) [place] HEMATOLOGY Tear Cell Slight 09/09 [facility]2014 [facility] HEMATOLOGY Target Cell Moderate None Seen 09/09 [facility]* [place] (09/09/14 2:13 AM) HEMATOLOGY Polychrom Slight 09/[address] HEMATOLOGY Plt Morph Normal 09/09 [facility] (09/09/14 2:13 AM) [place] HEMATOLOGY Tot Cell Ct 100 09/[address] HEMATOLOGY Bands 0.0 % 0.0 - 11.0 09/[address] HEMATOLOGY Segs 49.0 % 45.0 - 09/09 [facility] 75.0 [facility] HEMATOLOGY Macrocyte 1+ None Seen 09/09 [facility]* [place] (09/09/14 2:13 AM) HEMATOLOGY Anisocyte 1+ None Seen 09/09 [facility]* [place] (09/09/14 2:13 AM) HEMATOLOGY NRBC 2 /100WB 09/[address] HEMATOLOGY Atypical 0.0 % <=0.0 % 09/09 [facility] Lymph [facility] HEMATOLOGY Eosinophils 3.0 % 0.0 - 4.0 09/[address] HEMATOLOGY Monocytes 14.0 % 2.0 - 12.0 09/[address] HEMATOLOGY Lymphocytes 34.0 % 20.0 - 09/09 [facility] 40.0 [facility] HEMATOLOGY Eosinophils 0.6 K/CMM 0.0 - 0.5 09/09 [facility]2014 [facility] HEMATOLOGY Monocytes # 2.7 K/CMM 0.0 - 0.8 09/[address] HEMATOLOGY Lymphocytes 6.5 K/CMM 1.0 - 5.5 09/09 [facility] /[address] [place] [address] HEMATOLOGY Segs-Bands # 9.3 K/CMM 1.5 - 8.1 09/[address] HEMATOLOGY Retic Auto 16.6 % 0.5 - 1.5 09/09 [facility] HEMATOLOGY MPV 8.3 fL 7.4 - 10.4 09/09 [facility] HEMATOLOGY RDW 25.8 % 11.5 - 09/09 14.5 [facility] HEMATOLOGY MCHC 34.3 g/dL 32.0 - 09/09 [place] 36.0 [facility] HEMATOLOGY Platelet 220 K/CMM 133 - 450 09/09 [facility] HEMATOLOGY MCV 99.8 fL 80.0 - 09/09 98.0 /2014 [facility] HEMATOLOGY Hct 22.7 % 36.0 - 09/09 48.0 [facility] HEMATOLOGY MCH 34.2 pg 27.0 - 09/09 31.0 [facility] HEMATOLOGY WBC 19.0 K/CMM 3.7 - 10.4 09/09 [facility] HEMATOLOGY RBC 2.28 M/CMM 4.20 - 09/09 [facility] 5.40 /2014 [facility] Vital Signs Vital Sign Value Date Comments Source Respitory Rate 18 09/12/2014 [facility] Systolic (mm Hg) 120 09/12/2014 [facility] Heart Rate 80 09/12/2014 [facility] Diastolic (mm Hg) 80 09/12/2014 [facility] Temperature Oral (F) 98.0 F 09/12/2014 [facility] Diastolic (mm Hg) 82 09/11/2014 [facility] Respitory Rate 18 09/11/2014 [facility] Systolic (mm Hg) 132 09/11/2014 [facility] Heart Rate 82 09/11/2014 [facility] Temperature Oral (F) 98.4 F 09/11/2014 [facility] Respitory Rate 16 09/11/2014 [facility] Heart Rate 86 09/11/2014 [facility] Systolic (mm Hg) 120 09/11/2014 [facility] Diastolic (mm Hg) 86 09/11/2014 [facility] Temperature Oral (F) 98.1 F 09/11/2014 [facility] Weight 70.591 09/10/2014 [facility] Weight 68.182 09/09/2014 [facility] BMI Calculated 26.63 09/09/2014 [facility] Height 160.02 cm 09/09/2014 [facility] Weight 70 09/09/2014 [facility] Height 160.02 cm 09/09/2014 [facility] BMI Calculated 27.34 09/09/2014 [facility] Encounters Location Location Encounter Encounter Reason Attending ADM DC Status Source Details Type Number For Provider Date Date Visit [facility] [id number] Josiane 09/09 09/12 [facility] Roly [place]on /2014 [facility] Procedures Procedure Code Date Perfomer Comments Source
--- OUTSIDE RECORDS SUMMARY | 2018-06-04 10:44 | XMS REPORT ---
:1980 [facility] Address [address] [place] [address] Dr. Iraheta [address] [place] [id number] Care Team Providers Name Role Phone YANA [...] Comments WHITE BLOOD CELL COUNT (BEAKER) (test xzrn=281) 14.3 K/ L 3.5-10.5 RED BLOOD CELL COUNT (BEAKER) (test wuir=035) 2.54 M/ L 3.93-5.22 HEMOGLOBIN (BEAKER) (test qnai=719) 7.3 GM/DL 11.2-15.7 HEMATOCRIT (BEAKER) (test rofh=491) 23.4 % 34.1-44.9 MEAN CORPUSCULAR VOLUME (BEAKER) (test xbmg=207) 92.1 fL 79.4-94.8 MEAN CORPUSCULAR HEMOGLOBIN (BEAKER) (test pwrm=422) 28.7 pg 25.6-32.2 MEAN CORPUSCULAR HEMOGLOBIN CONC (BEAKER) (test xdrc=502) 31.2 GM/DL 32.2- 35.5 RED CELL DISTRIBUTION WIDTH (BEAKER) (test yaeu=903) 21.4 % 11.7-14.4 PLATELET COUNT (BEAKER) (test njlc=946) 239 K/CU MM 150-450 MEAN PLATELET VOLUME (BEAKER) (test hgoe=805) 11.0 fL 9.4-12.3 NUCLEATED RED BLOOD CELLS (BEAKER) (test opsd=018) 4 /100 WBC 0-0 (CELLAVISION MANUAL DIFF)2018-02-08 12:02:00 Test Item Value Reference Range Comments NEUTROPHILS - REL (CELLAVISION)(BEAKER) (test 66 % fufr=9072) LYMPHOCYTES - REL (CELLAVISION)(BEAKER) (test 22 % raso=7297) MONOCYTES - REL (CELLAVISION)(BEAKER) (test 8 % jjvv=3082) EOSINOPHILS - REL (CELLAVISION)(BEAKER) (test 3 % ydhg=0577) NEUTROPHILS - ABS (CELLAVISION)(BEAKER) (test 9.44 K/ul 1.56-6.13 tdcw=1296) LYMPHOCYTES - ABS (CELLAVISION)(BEAKER) (test 3.15 K/ul 1.18-3.74 krgc=5254) MONOCYTES - ABS (CELLAVISION)(BEAKER) (test 1.14 K/uL 0.24-0.36 zoec=9766) EOSINOPHILS - ABS (CELLAVISION)(BEAKER) (test 0.43 K/uL 0.04-0.36 jzzq=0831) TOTAL COUNTED (BEAKER) (test gluu=9561) 100 MANUAL NRBC PER 100 CELLS (BEAKER) (test 5 /100 WBC 0-0 ougv=1132) WBC MORPHOLOGY (BEAKER) (test poqs=012) Normal PLT MORPHOLOGY (BEAKER) (test cawe=443) Normal ANISOCYTOSIS (BEAKER) (test pzte=633) 2+ moderate MACROCYTES (BEAKER) (test yghh=068) 1+ few TARGET CELLS (BEAKER) (test fkzz=271) 1+ few SICKLE CELLS (BEAKER) (test zcbh=696) 1+ few MATTHEWS-JOLLY BODIES (BEAKER) (test mtgd=438) 1+ few ARTIFACT (CELLAVISION)(BEAKER) (test viyj=7729) Present PLATELET CONCENTRATION (CELLAVISION)(BEAKER) Adequate (test jxpp=8154) Received comment: User comments: Slide comments:BASIC METABOLIC [id number] 06:09:00 Test Item Value Reference Range Comments SODIUM (BEAKER) (test 138 meq/L 136-145 uqwi=517) POTASSIUM (BEAKER) (test 5.9 meq/L 3.5-5.1 nkzm=522) CHLORIDE (BEAKER) (test 102 meq/L 98-107 gnnd=231) CO2 (BEAKER) (test 30 meq/L 22-29 yigq=718) BLOOD UREA NITROGEN 15 mg/dL 7-21 (BEAKER) (test jfbk=871) CREATININE (BEAKER) (test 0.68 mg/dL 0.57-1.25 ivtu=501) GLUCOSE RANDOM (BEAKER) 87 mg/dL 70-105 (test lpdf=074) CALCIUM (BEAKER) (test 9.6 mg/dL 8.4-10.2 ydyn=735) EGFR (BEAKER) (test 117 mL/min/1.73 sq m ESTIMATED GFR IS NOT lknw=1789) ACCURATE CREATININE CLEARANCE IN PREDICTING GLOMERULAR FILTRATION RATE. ESTIMATED GFR IS NOT APPLICABLE FOR DIALYSIS PATIENTS. (CELLAVISION MANUAL DIFF)2018-02-07 13:34:00 Test Item Value Reference Range Comments NEUTROPHILS - REL (CELLAVISION)(BEAKER) (test 68 % hvqx=6460) LYMPHOCYTES - REL (CELLAVISION)(BEAKER) (test 24 % iest=0856) MONOCYTES - REL (CELLAVISION)(BEAKER) (test 7 % pbfa=9762) EOSINOPHILS - REL (CELLAVISION)(BEAKER) (test 1 % qixb=2014) NEUTROPHILS - ABS (CELLAVISION)(BEAKER) (test 9.66 K/ul 1.56-6.13 mcsz=0003) LYMPHOCYTES - ABS (CELLAVISION)(BEAKER) (test 3.41 K/ul 1.18-3.74 ywro=4569) MONOCYTES - ABS (CELLAVISION)(BEAKER) (test 0.99 K/uL 0.24-0.36 jodd=7453) EOSINOPHILS - ABS (CELLAVISION)(BEAKER) (test 0.14 K/uL 0.04-0.36 bpzh=7277) TOTAL COUNTED (BEAKER) (test whyj=4517) 100 MANUAL NRBC PER 100 CELLS (BEAKER) (test 15 /100 WBC 0-0 hrxs=9988) WBC MORPHOLOGY (BEAKER) (test fhmw=676) Normal LARGE PLT(BEAKER) (test spgr=6070) Present POLYCHROMATOPHILLIC RBCS(BEAKER) (test ngoo=684) 2+ moderate HYPOCHROMIA (BEAKER) (test opve=548) 1+ few TARGET CELLS (BEAKER) (test momm=818) 2+ moderate SICKLE CELLS (BEAKER) (test zfhd=645) 1+ few MATTHEWS-JOLLY BODIES (BEAKER) (test dyuf=601) 1+ few ARTIFACT (CELLAVISION)(BEAKER) (test pnqt=7936) Present PLATELET CONCENTRATION (CELLAVISION)(BEAKER) Adequate (test iqmd=6889) Received comment: User comments: Slide comments:CBC W/PLT COUNT & AUTO [id number] 13:33:00 Test Item Value Reference Range Comments WHITE BLOOD CELL COUNT (BEAKER) (test rqgy=281) 14.2 K/ L 3.5-10.5 RED BLOOD CELL COUNT (BEAKER) (test eyon=734) 2.68 M/ L 3.93-5.22 HEMOGLOBIN (BEAKER) (test pwkb=570) 7.7 GM/DL 11.2-15.7 HEMATOCRIT (BEAKER) (test dowx=393) 24.5 % 34.1-44.9 MEAN CORPUSCULAR VOLUME (BEAKER) (test gkjg=014) 91.4 fL 79.4-94.8 MEAN CORPUSCULAR HEMOGLOBIN (BEAKER) (test 28.7 pg 25.6-32.2 csgx=559) MEAN CORPUSCULAR HEMOGLOBIN CONC (BEAKER) (test 31.4 GM/DL 32.2-35.5 vppr=370) RED CELL DISTRIBUTION WIDTH (BEAKER) (test 21.2 % 11.7-14.4 bwrz=638) PLATELET COUNT (BEAKER) (test clym=071) 257 K/CU MM 150-450 MEAN PLATELET VOLUME (BEAKER) (test hrke=886) 11.4 fL 9.4-12.3 NUCLEATED RED BLOOD CELLS (BEAKER) (test 6 /100 WBC 0-0 sanr=740) BASIC METABOLIC [id number] 07:19:00 Test Item Value Reference Range Comments SODIUM (BEAKER) (test 138 meq/L 136-145 fhsp=282) POTASSIUM (BEAKER) (test 5.3 meq/L 3.5-5.1 iazs=456) CHLORIDE (BEAKER) (test 98 meq/L 98-107 wqaj=721) CO2 (BEAKER) (test 34 meq/L 22-29 kavo=207) BLOOD UREA NITROGEN 16 mg/dL 7-21 (BEAKER) (test omli=703) CREATININE (BEAKER) (test 0.66 mg/dL 0.57-1.25 etnw=989) GLUCOSE RANDOM (BEAKER) 90 mg/dL 70-105 (test vskg=155) CALCIUM (BEAKER) (test 9.8 mg/dL 8.4-10.2 dqmz=426) EGFR (BEAKER) (test 121 mL/min/1.73 sq m ESTIMATED GFR IS NOT aicz=9397) ACCURATE CREATININE CLEARANCE IN PREDICTING GLOMERULAR FILTRATION RATE. ESTIMATED GFR IS NOT APPLICABLE FOR DIALYSIS PATIENTS. CBC W/PLT COUNT & AUTO [id number] 14:36:00 Test Item Value Reference Range Comments WHITE BLOOD CELL COUNT (BEAKER) (test kvck=831) 12.9 K/ L 3.5-10.5 RED BLOOD CELL COUNT (BEAKER) (test lpwl=763) 2.54 M/ L 3.93-5.22 HEMOGLOBIN (BEAKER) (test ylmo=860) 7.4 GM/DL 11.2-15.7 HEMATOCRIT (BEAKER) (test znem=585) 22.9 % 34.1-44.9 MEAN CORPUSCULAR VOLUME (BEAKER) (test xgpi=006) 90.2 fL 79.4-94.8 MEAN CORPUSCULAR HEMOGLOBIN (BEAKER) (test 29.1 pg 25.6-32.2 nmtz=058) MEAN CORPUSCULAR HEMOGLOBIN CONC (BEAKER) (test 32.3 GM/DL 32.2-35.5 jsyc=525) RED CELL DISTRIBUTION WIDTH (BEAKER) (test 21.2 % 11.7-14.4 veaa=274) PLATELET COUNT (BEAKER) (test kayo=555) 251 K/CU MM 150-450 MEAN PLATELET VOLUME (BEAKER) (test iegy=494) 10.8 fL 9.4-12.3 NUCLEATED RED BLOOD CELLS (BEAKER) (test 7 /100 WBC 0-0 rkcq=764) (MANUAL DIFFERENTIAL)2018-02-06 14:36:00 Test Item Value Reference Range Comments NEUTROPHILS - REL (DIFF) (BEAKER) (test 64 % qypt=4368) LYMPHOCYTES - REL (DIFF) (BEAKER) (test 22 % tfwk=2164) MONOCYTES - REL (DIFF) (BEAKER) (test wjow=6166) 8 % EOSINOPHILS - REL (DIFF) (BEAKER) (test 6 % wcxt=1073) BASOPHILS - REL (DIFF) (BEAKER) (test fzwg=9836) 0 % NEUTROPHILS - ABS (DIFF) (BEAKER) (test 8.26 K/ L 1.80-8.00 qdea=7704) LYMPHOCYTES - ABS (DIFF) (BEAKER) (test 2.84 K/ L 1.48-4.50 vwat=6137) MONOCYTES - ABS (DIFF) (BEAKER) (test htgp=2348) 1.03 K/ L 0.00-1.30 EOSINOPHILS - ABS (DIFF) (BEAKER) (test 0.77 K/ L 0.00-0.50 yirh=7489) BASOPHILS - ABS (DIFF) (BEAKER) (test octw=6262) 0.00 K/ L 0.00-0.20 TOTAL COUNTED (BEAKER) (test bbdx=8589) 100 MANUAL NRBC PER 100 CELLS (BEAKER) (test 8 /100 WBC 0-0 ywbl=7774) WBC MORPHOLOGY (BEAKER) (test lnut=885) Normal PLT MORPHOLOGY (BEAKER) (test shsq=024) Normal ANISOCYTOSIS (BEAKER) (test pcxo=674) 2+ moderate SICKLE CELLS (BEAKER) (test embk=749) 2+ moderate BASIC METABOLIC [id number] 06:59:00 Test Item Value Reference Range Comments SODIUM (BEAKER) (test 139 meq/L 136-145 kedn=840) POTASSIUM (BEAKER) (test 4.9 meq/L 3.5-5.1 cozu=550) CHLORIDE (BEAKER) (test 100 meq/L 98-107 fmid=754) CO2 (BEAKER) (test 34 meq/L 22-29 uaoh=042) BLOOD UREA NITROGEN 18 mg/dL 7-21 (BEAKER) (test yacr=838) CREATININE (BEAKER) (test 0.70 mg/dL 0.57-1.25 ycyv=889) GLUCOSE RANDOM (BEAKER) 102 mg/dL 70-105 (test nnzc=476) CALCIUM (BEAKER) (test 9.8 mg/dL 8.4-10.2 xncz=155) EGFR (BEAKER) (test 114 mL/min/1.73 sq m ESTIMATED GFR IS NOT ailj=4625) ACCURATE CREATININE CLEARANCE IN PREDICTING GLOMERULAR FILTRATION RATE. ESTIMATED GFR IS NOT APPLICABLE FOR DIALYSIS PATIENTS. CBC W/PLT COUNT & AUTO [id number] 12:27:00 Test Item Value Reference Range Comments WHITE BLOOD CELL COUNT (BEAKER) (test wzny=411) 14.2 K/ L 3.5-10.5 RED BLOOD CELL COUNT (BEAKER) (test jcjj=090) 2.55 M/ L 3.93-5.22 HEMOGLOBIN (BEAKER) (test zgvg=171) 7.2 GM/DL 11.2-15.7 HEMATOCRIT (BEAKER) (test plld=420) 22.9 % 34.1-44.9 MEAN CORPUSCULAR VOLUME (BEAKER) (test vezy=259) 89.8 fL 79.4-94.8 MEAN CORPUSCULAR HEMOGLOBIN (BEAKER) (test 28.2 pg 25.6-32.2 gjmq=263) MEAN CORPUSCULAR HEMOGLOBIN CONC (BEAKER) (test 31.4 GM/DL 32.2-35.5 jiki=061) RED CELL DISTRIBUTION WIDTH (BEAKER) (test 20.7 % 11.7-14.4 fwgo=064) PLATELET COUNT (BEAKER) (test nxfh=876) 261 K/CU MM 150-450 MEAN PLATELET VOLUME (BEAKER) (test xend=326) 10.7 fL 9.4-12.3 NUCLEATED RED BLOOD CELLS (BEAKER) (test 5 /100 WBC 0-0 tntg=579) (CELLAVISION MANUAL DIFF)2018-02-05 12:27:00 Test Item Value Reference Range Comments NEUTROPHILS - REL (CELLAVISION)(BEAKER) (test 67 % cjih=4403) LYMPHOCYTES - REL (CELLAVISION)(BEAKER) (test 17 % yknw=2809) MONOCYTES - REL (CELLAVISION)(BEAKER) (test 6 % kvth=5107) EOSINOPHILS - REL (CELLAVISION)(BEAKER) (test 4 % fljm=3977) PROMYELOCYTES - REL (CELLAVSION)(BEAKER) (test 5 % 0-0 rwuc=3380) ATYPICAL LYMPHOCYTES - REL (CELLAVISION)(BEAKER) 1 % 0-0 (test jymh=5959) NEUTROPHILS - ABS (CELLAVISION)(BEAKER) (test 9.51 K/ul 1.56-6.13 zudy=9260) LYMPHOCYTES - ABS (CELLAVISION)(BEAKER) (test 2.41 K/ul 1.18-3.74 behu=8781) MONOCYTES - ABS (CELLAVISION)(BEAKER) (test 0.85 K/uL 0.24-0.36 nzpg=5532) EOSINOPHILS - ABS (CELLAVISION)(BEAKER) (test 0.57 K/uL 0.04-0.36 plnh=7907) PROMYELOCYTES - ABS (CELLAVISION)(BEAKER) (test 0.71 K/uL 0.00-0.00 uash=5291) ATYPICAL LYMPHOCYTES - ABS (CELLAVISION)(BEAKER) 0.14 K/uL 0.00-0.00 (test illj=2084) TOTAL COUNTED (BEAKER) (test qscn=5967) 100 MANUAL NRBC PER 100 CELLS (BEAKER) (test 9 /100 WBC 0-0 sieb=1471) WBC MORPHOLOGY (BEAKER) (test tdxg=898) Normal LARGE PLT(BEAKER) (test dlbt=6618) Present POLYCHROMATOPHILLIC RBCS(BEAKER) (test zktf=632) 2+ moderate HYPOCHROMIA (BEAKER) (test kwgp=492) 1+ few TARGET CELLS (BEAKER) (test xuqj=181) 2+ moderate SICKLE CELLS (BEAKER) (test wdnd=609) 2+ moderate ARTIFACT (CELLAVISION)(BEAKER) (test sqfn=5855) Present PLATELET CONCENTRATION (CELLAVISION)(BEAKER) Adequate (test wxci=8361) Received comment: User comments: Slide comments:BASIC METABOLIC [id number] 07:44:00 Test Item Value Reference Range Comments SODIUM (BEAKER) (test 139 meq/L 136-145 jvzw=639) POTASSIUM (BEAKER) (test 4.7 meq/L 3.5-5.1 jxmo=788) CHLORIDE (BEAKER) (test 100 meq/L 98-107 qarg=799) CO2 (BEAKER) (test 31 meq/L 22-29 tofu=343) BLOOD UREA NITROGEN 14 mg/dL 7-21 (BEAKER) (test rigd=332) CREATININE (BEAKER) (test 0.69 mg/dL 0.57-1.25 olqb=446) GLUCOSE RANDOM (BEAKER) 92 mg/dL 70-105 (test kxhu=208) CALCIUM (BEAKER) (test 9.8 mg/dL 8.4-10.2 idvs=051) EGFR (BEAKER) (test 115 mL/min/1.73 sq m ESTIMATED GFR IS NOT eqir=2139) ACCURATE CREATININE CLEARANCE IN PREDICTING GLOMERULAR FILTRATION RATE. ESTIMATED GFR IS NOT APPLICABLE FOR DIALYSIS PATIENTS. CBC W/PLT COUNT & AUTO [id number] 13:29:00 Test Item Value Reference Range Comments WHITE BLOOD CELL COUNT (BEAKER) (test tebt=922) 17.1 K/ L 3.5-10.5 RED BLOOD CELL COUNT (BEAKER) (test jnlb=828) 2.68 M/ L 3.93-5.22 HEMOGLOBIN (BEAKER) (test whtb=414) 7.6 GM/DL 11.2-15.7 HEMATOCRIT (BEAKER) (test jwsz=158) 23.3 % 34.1-44.9 MEAN CORPUSCULAR VOLUME (BEAKER) (test hanl=075) 86.9 fL 79.4-94.8 MEAN CORPUSCULAR HEMOGLOBIN (BEAKER) (test 28.4 pg 25.6-32.2 mchi=197) MEAN CORPUSCULAR HEMOGLOBIN CONC (BEAKER) (test 32.6 GM/DL 32.2-35.5 wjhc=333) RED CELL DISTRIBUTION WIDTH (BEAKER) (test 20.0 % 11.7-14.4 focw=832) PLATELET COUNT (BEAKER) (test esfc=716) 252 K/CU MM 150-450 MEAN PLATELET VOLUME (BEAKER) (test thra=974) 10.9 fL 9.4-12.3 NUCLEATED RED BLOOD CELLS (BEAKER) (test 4 /100 WBC 0-0 jfej=555) (CELLAVISION MANUAL DIFF)2018-02-04 13:29:00 Test Item Value Reference Range Comments NEUTROPHILS - REL (CELLAVISION)(BEAKER) (test 61 % cism=2397) LYMPHOCYTES - REL (CELLAVISION)(BEAKER) (test 29 % rqhj=2167) MONOCYTES - REL (CELLAVISION)(BEAKER) (test 7 % blgj=4190) EOSINOPHILS - REL (CELLAVISION)(BEAKER) (test 1 % jkca=5409) BANDS - REL (CELLAVISION)(BEAKER) (test 2 % 0-10 cxao=4260) NEUTROPHILS - ABS (CELLAVISION)(BEAKER) (test 10.43 K/ul 1.56-6.13 emzw=6242) LYMPHOCYTES - ABS (CELLAVISION)(BEAKER) (test 4.96 K/ul 1.18-3.74 aksu=6163) MONOCYTES - ABS (CELLAVISION)(BEAKER) (test 1.20 K/uL 0.24-0.36 rzdi=9157) EOSINOPHILS - ABS (CELLAVISION)(BEAKER) (test 0.17 K/uL 0.04-0.36 cenx=8461) BANDS - ABS (CELLAVISION)(BEAKER) (test 0.34 K/uL 0.00-0.80 upjn=1268) TOTAL COUNTED (BEAKER) (test zazf=5240) 100 MANUAL NRBC PER 100 CELLS (BEAKER) (test 3 /100 WBC 0-0 awgh=9176) SMUDGE CELLS (BEAKER) (test ypjy=2342) Present GIANT PLATELETS (BEAKER) (test ozbn=371) Present POLYCHROMATOPHILLIC RBCS(BEAKER) (test zvkx=356) 3+ many ANISOCYTOSIS (BEAKER) (test vbps=961) 2+ moderate MICROCYTES (BEAKER) (test bqyb=917) 1+ few POIKILOCYTES (BEAKER) (test zpbc=481) 2+ moderate TARGET CELLS (BEAKER) (test ttzw=656) 2+ moderate SICKLE CELLS (BEAKER) (test hyel=800) 2+ moderate ARTIFACT (CELLAVISION)(BEAKER) (test lvom=3238) Present HELMET CELLS (CELLAVISION)(BEAKER) (test 1+ few gxch=3989) PLATELET CONCENTRATION (CELLAVISION)(BEAKER) Adequate (test zswh=2098) Received comment: User comments: Slide comments:BASIC METABOLIC [id number] 05:38:00 Test Item Value Reference Range Comments SODIUM (BEAKER) (test 140 meq/L 136-145 fmqc=294) POTASSIUM (BEAKER) (test 4.6 meq/L 3.5-5.1 cepo=833) CHLORIDE (BEAKER) (test 104 meq/L 98-107 dknk=531) CO2 (BEAKER) (test 28 meq/L 22-29 ntcn=862) BLOOD UREA NITROGEN 18 mg/dL 7-21 (BEAKER) (test locg=954) CREATININE (BEAKER) (test 0.66 mg/dL 0.57-1.25 wche=153) GLUCOSE RANDOM (BEAKER) 100 mg/dL 70-105 (test bltc=386) CALCIUM (BEAKER) (test 9.5 mg/dL 8.4-10.2 orap=523) EGFR (BEAKER) (test 121 mL/min/1.73 sq m ESTIMATED GFR IS NOT cpwe=9583) ACCURATE CREATININE CLEARANCE IN PREDICTING GLOMERULAR FILTRATION RATE. ESTIMATED GFR IS NOT APPLICABLE FOR DIALYSIS PATIENTS. CBC W/PLT COUNT & AUTO [id number] 14:02:00 Test Item Value Reference Range Comments WHITE BLOOD CELL COUNT (BEAKER) (test totu=953) 20.8 K/ L 3.5-10.5 RED BLOOD CELL COUNT (BEAKER) (test fuei=103) 1.97 M/ L 3.93-5.22 HEMOGLOBIN (BEAKER) (test pbke=911) 5.9 GM/DL 11.2-15.7 HEMATOCRIT (BEAKER) (test iplh=846) 17.6 % 34.1-44.9 MEAN CORPUSCULAR VOLUME (BEAKER) (test utlx=514) 89.3 fL 79.4-94.8 MEAN CORPUSCULAR HEMOGLOBIN (BEAKER) (test 29.9 pg 25.6-32.2 dkub=841) MEAN CORPUSCULAR HEMOGLOBIN CONC (BEAKER) (test 33.5 GM/DL 32.2-35.5 wgtf=296) RED CELL DISTRIBUTION WIDTH (BEAKER) (test 21.8 % 11.7-14.4 tqfn=752) PLATELET COUNT (BEAKER) (test yflb=549) 290 K/CU MM 150-450 MEAN PLATELET VOLUME (BEAKER) (test dibu=785) 10.7 fL 9.4-12.3 NUCLEATED RED BLOOD CELLS (BEAKER) (test 5 /100 WBC 0-0 vjhg=258) NEUTROPHILS RELATIVE PERCENT (BEAKER) (test 66 % zyow=976) LYMPHOCYTES RELATIVE PERCENT (BEAKER) (test 23 % byfw=196) MONOCYTES RELATIVE PERCENT (BEAKER) (test 10 % kwhv=294) EOSINOPHILS RELATIVE PERCENT (BEAKER) (test 1 % hqja=855) BASOPHILS RELATIVE PERCENT (BEAKER) (test 0 % djjr=877) NEUTROPHILS ABSOLUTE COUNT (BEAKER) (test 13.73 K/ L 1.56-6.13 sajm=453) LYMPHOCYTES ABSOLUTE COUNT (BEAKER) (test 4.72 K/ L 1.18-3.74 emnr=409) MONOCYTES ABSOLUTE COUNT (BEAKER) (test 2.06 K/ L 0.24-0.36 hkyn=271) EOSINOPHILS ABSOLUTE COUNT (BEAKER) (test 0.20 K/ L 0.04-0.36 hhsv=605) BASOPHILS ABSOLUTE COUNT (BEAKER) (test 0.03 K/ L 0.01-0.08 ysur=448) IMMATURE GRANULOCYTES-RELATIVE PERCENT (BEAKER) 1 % 0-1 (test qkza=7260) (CELLAVISION MANUAL DIFF)2018-02-03 14:02:00 Test Item Value Reference Range Comments TOTAL COUNTED (BEAKER) (test uoba=2129) WBC MORPHOLOGY (BEAKER) (test qytv=598) Normal PLT MORPHOLOGY (BEAKER) (test gkbp=833) Normal POLYCHROMATOPHILLIC RBCS(BEAKER) (test ivvc=652) 2+ moderate ANISOCYTOSIS (BEAKER) (test ipfl=051) 2+ moderate TARGET CELLS (BEAKER) (test phku=742) 2+ moderate SICKLE CELLS (BEAKER) (test hpvp=918) 2+ moderate BASIC METABOLIC [id number] 07:22:00 Test Item Value Reference Range Comments SODIUM (BEAKER) (test 140 meq/L 136-145 dooe=452) POTASSIUM (BEAKER) (test 4.9 meq/L 3.5-5.1 apcr=758) CHLORIDE (BEAKER) (test 105 meq/L 98-107 ikln=114) CO2 (BEAKER) (test 29 meq/L 22-29 iiql=694) BLOOD UREA NITROGEN 20 mg/dL 7-21 (BEAKER) (test ejrm=555) CREATININE (BEAKER) (test 0.72 mg/dL 0.57-1.25 cgvx=077) GLUCOSE RANDOM (BEAKER) 100 mg/dL 70-105 (test llsg=928) CALCIUM (BEAKER) (test 9.4 mg/dL 8.4-10.2 mnjs=104) EGFR (BEAKER) (test 110 mL/min/1.73 sq m ESTIMATED GFR IS NOT lnnm=6293) ACCURATE CREATININE CLEARANCE IN PREDICTING GLOMERULAR FILTRATION RATE. ESTIMATED GFR IS NOT APPLICABLE FOR DIALYSIS PATIENTS. Specimen slightly ictericCBC W/PLT COUNT & AUTO [id number] 06:46 :00 Test Item Value Reference Range Comments WHITE BLOOD CELL COUNT (BEAKER) (test erib=044) 17.0 K/ L 3.5-10.5 RED BLOOD CELL COUNT (BEAKER) (test ymiy=376) 2.18 M/ L 3.93-5.22 HEMOGLOBIN (BEAKER) (test kixv=795) 6.4 GM/DL 11.2-15.7 HEMATOCRIT (BEAKER) (test nnsq=096) 20.3 % 34.1-44.9 MEAN CORPUSCULAR VOLUME (BEAKER) (test qirh=249) 93.1 fL 79.4-94.8 MEAN CORPUSCULAR HEMOGLOBIN (BEAKER) (test 29.4 pg 25.6-32.2 bsme=078) MEAN CORPUSCULAR HEMOGLOBIN CONC (BEAKER) (test 31.5 GM/DL 32.2-35.5 rabv=959) RED CELL DISTRIBUTION WIDTH (BEAKER) (test 24.0 % 11.7-14.4 tlhi=588) PLATELET COUNT (BEAKER) (test mokb=880) 274 K/CU MM 150-450 MEAN PLATELET VOLUME (BEAKER) (test kxsf=590) 10.9 fL 9.4-12.3 NUCLEATED RED BLOOD CELLS (BEAKER) (test 13 /100 WBC 0-0 gqdk=024) (CELLAVISION MANUAL DIFF)2018-02-02 06:46:00 Test Item Value Reference Range Comments NEUTROPHILS - REL (CELLAVISION)(BEAKER) (test 72 % zwxj=3489) LYMPHOCYTES - REL (CELLAVISION)(BEAKER) (test 20 % lqph=6011) MONOCYTES - REL (CELLAVISION)(BEAKER) (test 6 % gukd=2615) EOSINOPHILS - REL (CELLAVISION)(BEAKER) (test 1 % psup=7739) BANDS - REL (CELLAVISION)(BEAKER) (test 1 % 0-10 zyca=6080) NEUTROPHILS - ABS (CELLAVISION)(BEAKER) (test 12.24 K/ul 1.56-6.13 bpei=8900) LYMPHOCYTES - ABS (CELLAVISION)(BEAKER) (test 3.40 K/ul 1.18-3.74 orij=4757) MONOCYTES - ABS (CELLAVISION)(BEAKER) (test 1.02 K/uL 0.24-0.36 kasr=5375) EOSINOPHILS - ABS (CELLAVISION)(BEAKER) (test 0.17 K/uL 0.04-0.36 txmi=9461) BANDS - ABS (CELLAVISION)(BEAKER) (test 0.17 K/uL 0.00-0.80 zsvr=6627) TOTAL COUNTED (BEAKER) (test hswo=8114) 100 MANUAL NRBC PER 100 CELLS (BEAKER) (test 30 /100 WBC 0-0 celf=0691) WBC MORPHOLOGY (BEAKER) (test gkkp=783) Normal PLT MORPHOLOGY (BEAKER) (test ppou=649) Normal POLYCHROMATOPHILLIC RBCS(BEAKER) (test ipyf=485) 3+ many ANISOCYTOSIS (BEAKER) (test mgwo=626) 2+ moderate MACROCYTES (BEAKER) (test iiiq=125) 2+ moderate TARGET CELLS (BEAKER) (test sdxu=224) 1+ few SICKLE CELLS (BEAKER) (test sglt=338) 1+ few ARTIFACT (CELLAVISION)(BEAKER) (test umic=2098) Present PLATELET CONCENTRATION (CELLAVISION)(BEAKER) Adequate (test jvio=6109) Received comment: User comments: Slide comments:BASIC METABOLIC [id number] 06:15:00 Test Item Value Reference Range Comments SODIUM (BEAKER) (test 139 meq/L 136-145 cgmw=572) POTASSIUM (BEAKER) (test 4.7 meq/L 3.5-5.1 wrhb=157) CHLORIDE (BEAKER) (test 105 meq/L 98-107 muvt=660) CO2 (BEAKER) (test 26 meq/L 22-29 cqkx=768) BLOOD UREA NITROGEN 10 mg/dL 7-21 (BEAKER) (test nfrg=104) CREATININE (BEAKER) (test 0.67 mg/dL 0.57-1.25 pppo=170) GLUCOSE RANDOM (BEAKER) 91 mg/dL 70-105 (test kqix=049) CALCIUM (BEAKER) (test 9.3 mg/dL 8.4-10.2 rrqi=028) EGFR (BEAKER) (test 119 mL/min/1.73 sq m ESTIMATED GFR IS NOT psky=1816) ACCURATE CREATININE CLEARANCE IN PREDICTING GLOMERULAR FILTRATION RATE. ESTIMATED GFR IS NOT APPLICABLE FOR DIALYSIS PATIENTS. URINALYSIS W/ [id number] 20:17:00 Test Item Value Reference Range Comments COLOR (BEAKER) (test uezh=337) Yellow CLARITY (BEAKER) (test qioz=195) Hazy SPECIFIC GRAVITY UA (BEAKER) (test txak=659) 1.009 1.001-1.035 PH UA (BEAKER) (test eexv=706) 5.5 5.0-8.0 PROTEIN UA (BEAKER) (test gxta=798) 20 mg/dL Negative GLUCOSE UA (BEAKER) (test oqfp=693) Negative Negative KETONES UA (BEAKER) (test hhho=107) Negative Negative BILIRUBIN UA (BEAKER) (test pnzj=937) Negative Negative BLOOD UA (BEAKER) (test kmzp=888) Small Negative NITRITE UA (BEAKER) (test jeet=521) Negative Negative LEUKOCYTE ESTERASE UA (BEAKER) (test asdu=590) Small Negative UROBILINOGEN UA (BEAKER) (test rvuo=585) 0.2 mg/dL 0.2-1.0 RBC UA (BEAKER) (test jyse=624) 1 /HPF WBC UA (BEAKER) (test xwby=869) 4 /HPF BACTERIA (BEAKER) (test ugih=841) Few MUCUS (BEAKER) (test toeb=0544) Occasional SQUAMOUS EPITHELIAL (BEAKER) (test sasm=158) 8 /HPF SOURCE(BEAKER) (test dflk=4000) Urine, Voided CBC W/PLT COUNT & AUTO [id number] 11:18:00 Test Item Value Reference Range Comments WHITE BLOOD CELL COUNT (BEAKER) (test xfcd=301) 16.9 K/ L 3.5-10.5 RED BLOOD CELL COUNT (BEAKER) (test erux=229) 2.15 M/ L 3.93-5.22 HEMOGLOBIN (BEAKER) (test lprd=081) 6.5 GM/DL 11.2-15.7 HEMATOCRIT (BEAKER) (test jpdm=618) 20.6 % 34.1-44.9 MEAN CORPUSCULAR VOLUME (BEAKER) (test vfyg=057) 95.8 fL 79.4-94.8 MEAN CORPUSCULAR HEMOGLOBIN (BEAKER) (test 30.2 pg 25.6-32.2 wzoz=612) MEAN CORPUSCULAR HEMOGLOBIN CONC (BEAKER) (test 31.6 GM/DL 32.2-35.5 onfy=772) RED CELL DISTRIBUTION WIDTH (BEAKER) (test 25.6 % 11.7-14.4 bgpj=953) PLATELET COUNT (BEAKER) (test kwtb=306) 280 K/CU MM 150-450 MEAN PLATELET VOLUME (BEAKER) (test fuju=702) 10.7 fL 9.4-12.3 NUCLEATED RED BLOOD CELLS (BEAKER) (test 27 /100 WBC 0-0 yqmc=835) (CELLAVISION MANUAL DIFF)2018-02-01 11:18:00 Test Item Value Reference Range Comments NEUTROPHILS - REL (CELLAVISION)(BEAKER) (test 61 % fadn=6898) LYMPHOCYTES - REL (CELLAVISION)(BEAKER) (test 27 % nicn=5508) MONOCYTES - REL (CELLAVISION)(BEAKER) (test 8 % tfkt=8181) EOSINOPHILS - REL (CELLAVISION)(BEAKER) (test 4 % csni=7966) NEUTROPHILS - ABS (CELLAVISION)(BEAKER) (test 10.31 K/ul 1.56-6.13 vpyt=3083) LYMPHOCYTES - ABS (CELLAVISION)(BEAKER) (test 4.56 K/ul 1.18-3.74 myca=4038) MONOCYTES - ABS (CELLAVISION)(BEAKER) (test 1.35 K/uL 0.24-0.36 gwde=9125) EOSINOPHILS - ABS (CELLAVISION)(BEAKER) (test 0.68 K/uL 0.04-0.36 odvk=9197) TOTAL COUNTED (BEAKER) (test fxto=4762) 100 MANUAL NRBC PER 100 CELLS (BEAKER) (test 28 /100 WBC 0-0 mqvs=1954) WBC MORPHOLOGY (BEAKER) (test mlwh=466) Normal PLT MORPHOLOGY (BEAKER) (test evtf=381) Normal POLYCHROMATOPHILLIC RBCS(BEAKER) (test tulx=722) 2+ moderate ANISOCYTOSIS (BEAKER) (test vmtr=824) 2+ moderate TARGET CELLS (BEAKER) (test wrim=419) 2+ moderate SICKLE CELLS (BEAKER) (test nmia=123) 1+ few ARTIFACT (CELLAVISION)(BEAKER) (test cbol=1509) Present PLATELET CONCENTRATION (CELLAVISION)(BEAKER) Adequate (test bfbh=1976) Received comment: User comments: Slide comments:BASIC METABOLIC [id number] 06:15:00 Test Item Value Reference Range Comments SODIUM (BEAKER) (test 141 meq/L 136-145 lemr=964) POTASSIUM (BEAKER) (test 4.2 meq/L 3.5-5.1 wgye=828) CHLORIDE (BEAKER) (test 108 meq/L 98-107 arot=423) CO2 (BEAKER) (test 25 meq/L 22-29 zzfs=020) BLOOD UREA NITROGEN 11 mg/dL 7-21 (BEAKER) (test hlse=770) CREATININE (BEAKER) (test 0.73 mg/dL 0.57-1.25 gvvj=755) GLUCOSE RANDOM (BEAKER) 93 mg/dL 70-105 (test imiu=757) CALCIUM (BEAKER) (test 9.2 mg/dL 8.4-10.2 jdib=767) EGFR (BEAKER) (test 108 mL/min/1.73 sq m ESTIMATED GFR IS NOT sxly=7259) ACCURATE CREATININE CLEARANCE IN PREDICTING GLOMERULAR FILTRATION RATE. ESTIMATED GFR IS NOT APPLICABLE FOR DIALYSIS PATIENTS. CBC W/PLT COUNT & AUTO [id number] 15:02:00 Test Item Value Reference Range Comments WHITE BLOOD CELL COUNT (BEAKER) (test nqyh=435) 18.0 K/ L 3.5-10.5 RED BLOOD CELL COUNT (BEAKER) (test wits=724) 2.31 M/ L 3.93-5.22 HEMOGLOBIN (BEAKER) (test gngf=542) 7.0 GM/DL 11.2-15.7 HEMATOCRIT (BEAKER) (test szbv=638) 22.4 % 34.1-44.9 MEAN CORPUSCULAR VOLUME (BEAKER) (test imjd=006) 97.0 fL 79.4-94.8 MEAN CORPUSCULAR HEMOGLOBIN (BEAKER) (test 30.3 pg 25.6-32.2 ytve=505) MEAN CORPUSCULAR HEMOGLOBIN CONC (BEAKER) (test 31.3 GM/DL 32.2-35.5 txlh=174) RED CELL DISTRIBUTION WIDTH (BEAKER) (test 27.9 % 11.7-14.4 pvdh=719) PLATELET COUNT (BEAKER) (test gkio=878) 337 K/CU MM 150-450 MEAN PLATELET VOLUME (BEAKER) (test bbwb=965) 10.2 fL 9.4-12.3 NUCLEATED RED BLOOD CELLS (BEAKER) (test 63 /100 WBC 0-0 oywp=492) NEUTROPHILS RELATIVE PERCENT (BEAKER) (test 45 % aswc=291) LYMPHOCYTES RELATIVE PERCENT (BEAKER) (test 35 % heuu=009) MONOCYTES RELATIVE PERCENT (BEAKER) (test 16 % nlas=653) EOSINOPHILS RELATIVE PERCENT (BEAKER) (test 2 % lpwd=675) BASOPHILS RELATIVE PERCENT (BEAKER) (test 0 % tjwv=286) NEUTROPHILS ABSOLUTE COUNT (BEAKER) (test 8.10 K/ L 1.56-6.13 dgry=097) LYMPHOCYTES ABSOLUTE COUNT (BEAKER) (test 6.24 K/ L 1.18-3.74 mpkq=719) MONOCYTES ABSOLUTE COUNT (BEAKER) (test 2.96 K/ L 0.24-0.36 qxfd=764) EOSINOPHILS ABSOLUTE COUNT (BEAKER) (test 0.38 K/ L 0.04-0.36 ezty=579) BASOPHILS ABSOLUTE COUNT (BEAKER) (test 0.06 K/ L 0.01-0.08 umct=746) IMMATURE GRANULOCYTES-RELATIVE PERCENT (BEAKER) 2 % 0-1 (test cegk=1065) (CELLAVISION MANUAL DIFF)2018-01-30 15:02:00 Test Item Value Reference Range Comments TOTAL COUNTED (BEAKER) (test qckq=0185) WBC MORPHOLOGY (BEAKER) (test xvtx=679) Normal PLT MORPHOLOGY (BEAKER) (test jquf=816) Normal POLYCHROMATOPHILLIC RBCS(BEAKER) (test dvec=658) 2+ moderate ANISOCYTOSIS (BEAKER) (test ejfu=094) 2+ moderate TARGET CELLS (BEAKER) (test ovei=836) 2+ moderate SICKLE CELLS (BEAKER) (test dgqy=310) 1+ few BASIC METABOLIC [id number] 09:27:00 Test Item Value Reference Range Comments SODIUM (BEAKER) (test 141 meq/L 136-145 swus=529) POTASSIUM (BEAKER) (test 4.0 meq/L 3.5-5.1 khin=523) CHLORIDE (BEAKER) (test 108 meq/L 98-107 pgev=552) CO2 (BEAKER) (test 24 meq/L 22-29 tich=486) BLOOD UREA NITROGEN 12 mg/dL 7-21 (BEAKER) (test nfyx=217) CREATININE (BEAKER) (test 0.80 mg/dL 0.57-1.25 ykpp=438) GLUCOSE RANDOM (BEAKER) 95 mg/dL 70-105 (test fysc=599) CALCIUM (BEAKER) (test 9.5 mg/dL 8.4-10.2 qnum=963) EGFR (BEAKER) (test 97 mL/min/1.73 sq m ESTIMATED GFR IS NOT etuc=4921) ACCURATE CREATININE CLEARANCE IN PREDICTING GLOMERULAR FILTRATION RATE. ESTIMATED GFR IS NOT APPLICABLE FOR DIALYSIS PATIENTS. [id number] 17:59:00 Test Item Value Reference Range Comments FERRITIN (BEAKER) (test dury=845) 47508 ng/mL 5-275 CBC W/PLT COUNT & AUTO [id number] 17:20:00 Test Item Value Reference Range Comments WHITE BLOOD CELL COUNT (BEAKER) (test mril=968) 19.9 K/ L 3.5-10.5 RED BLOOD CELL COUNT (BEAKER) (test mwug=734) 1.53 M/ L 3.93-5.22 HEMOGLOBIN (BEAKER) (test yjwn=214) 5.0 GM/DL 11.2-15.7 HEMATOCRIT (BEAKER) (test ddho=980) 16.0 % 34.1-44.9 MEAN CORPUSCULAR VOLUME (BEAKER) (test omcc=826) 104.6 fL 79.4-94.8 MEAN CORPUSCULAR HEMOGLOBIN (BEAKER) (test 32.7 pg 25.6-32.2 fwjv=539) MEAN CORPUSCULAR HEMOGLOBIN CONC (BEAKER) (test 31.3 GM/DL 32.2-35.5 uiog=099) RED CELL DISTRIBUTION WIDTH (BEAKER) (test 33.7 % 11.7-14.4 upew=594) PLATELET COUNT (BEAKER) (test iyaf=823) 364 K/CU MM 150-450 MEAN PLATELET VOLUME (BEAKER) (test yjcy=223) 10.4 fL 9.4-12.3 NUCLEATED RED BLOOD CELLS (BEAKER) (test 62 /100 WBC 0-0 fbko=604) RETICULOCYTE [id number] 17:20:00 Test Item Value Reference Range Comments RETICULOCYTE COUNT PCT (BEAKER) (test wfgh=192) > % 0.5-1.7 (CELLAVISION MANUAL DIFF)2018-01-29 17:20:00 Test Item Value Reference Range Comments TOTAL COUNTED (BEAKER) (test vroo=0207) RBC MORPHOLOGY (BEAKER) (test cdvg=928) Normal WBC MORPHOLOGY (BEAKER) (test qyud=848) Normal PLT MORPHOLOGY (BEAKER) (test rvnp=680) Normal LACTATE DEHYDROGENASE (LDH)2018-01-29 17:04:00 Test Item Value Reference Range Comments LACTATE DEHYDROGENASE (BEAKER) (test igtm=733) 989 U/L 125-220 BASIC METABOLIC [id number] 17:04:00 Test Item Value Reference Range Comments SODIUM (BEAKER) (test 138 meq/L 136-145 macs=172) POTASSIUM (BEAKER) (test 4.2 meq/L 3.5-5.1 gdvq=758) CHLORIDE (BEAKER) (test 109 meq/L 98-107 oajp=311) CO2 (BEAKER) (test 22 meq/L 22-29 xcdk=529) BLOOD UREA NITROGEN 11 mg/dL 7-21 (BEAKER) (test iahx=142) CREATININE (BEAKER) (test 0.76 mg/dL 0.57-1.25 lpzf=785) GLUCOSE RANDOM (BEAKER) 104 mg/dL 70-105 (test vtmw=804) CALCIUM (BEAKER) (test 9.5 mg/dL 8.4-10.2 lkvx=411) EGFR (BEAKER) (test 103 mL/min/1.73 sq m ESTIMATED GFR IS NOT eqni=7540) ACCURATE CREATININE CLEARANCE IN PREDICTING GLOMERULAR FILTRATION RATE. ESTIMATED GFR IS NOT APPLICABLE FOR DIALYSIS PATIENTS. ANTI-MITOCHONDRIAL AB, REFLEX TO [id number] 11:03:00 Test Item Value Reference Range Comments SCAN RESULT (test mebs=[id number]) CALCIUM, [id number] 07:05:00 Test Item Value Reference Range Comments CALCIUM IONIZED (BEAKER) (test ujtp=198) 1.10 mmol/L 1.12-1.27 PH, BLOOD (BEAKER) (test myaa=8136) 7.30 [id number] 06:22:00 Test Item Value Reference Range Comments PHOSPHORUS (BEAKER) (test cbfd=346) 4.7 mg/dL 2.3-4.7 [id number] 06:22:00 Test Item Value Reference Range Comments MAGNESIUM (BEAKER) (test ktpq=713) 1.4 mg/dL 1.6-2.6 BASIC METABOLIC [id number] 06:22:00 Test Item Value Reference Range Comments SODIUM (BEAKER) (test 135 meq/L 136-145 qpky=899) POTASSIUM (BEAKER) (test 4.5 meq/L 3.5-5.1 czhy=476) CHLORIDE (BEAKER) (test 100 meq/L 98-107 whtf=643) CO2 (BEAKER) (test 29 meq/L 22-29 ofoe=822) BLOOD UREA NITROGEN 19 mg/dL 7-21 (BEAKER) (test odit=158) CREATININE (BEAKER) (test 0.76 mg/dL 0.57-1.25 rbgj=925) GLUCOSE RANDOM (BEAKER) 104 mg/dL 70-105 (test hcni=651) CALCIUM (BEAKER) (test 9.3 mg/dL 8.4-10.2 eqlf=695) EGFR (BEAKER) (test 103 mL/min/1.73 sq m ESTIMATED GFR IS NOT wfyy=3490) ACCURATE CREATININE CLEARANCE IN PREDICTING GLOMERULAR FILTRATION RATE. ESTIMATED GFR IS NOT APPLICABLE FOR DIALYSIS PATIENTS. CREATINE KINASE (CK)2017-11-24 08:12:00 Test Item Value Reference Range Comments CREATINE KINASE TOTAL (BEAKER) (test zoeu=167) 8 U/L 29-200 URIC [id number] 08:01:00 Test Item Value Reference Range Comments URIC ACID (BEAKER) (test zgsk=442) 4.8 mg/dL 2.6-7.2 [id number] 08:01:00 Test Item Value Reference Range Comments MAGNESIUM (BEAKER) (test pton=880) 1.5 mg/dL 1.6-2.6 [id number] 08:01:00 Test Item Value Reference Range Comments PHOSPHORUS (BEAKER) (test djjh=377) 5.3 mg/dL 2.3-4.7 BASIC METABOLIC [id number] 08:01:00 Test Item Value Reference Range Comments SODIUM (BEAKER) (test 138 meq/L 136-145 qdcp=948) POTASSIUM (BEAKER) (test 4.9 meq/L 3.5-5.1 rhzb=496) CHLORIDE (BEAKER) (test 100 meq/L 98-107 kxid=736) CO2 (BEAKER) (test 28 meq/L 22-29 dbuw=039) BLOOD UREA NITROGEN 22 mg/dL 7-21 (BEAKER) (test jzyg=353) CREATININE (BEAKER) (test 0.80 mg/dL 0.57-1.25 ozda=153) GLUCOSE RANDOM (BEAKER) 102 mg/dL 70-105 (test jtxg=750) CALCIUM (BEAKER) (test 9.3 mg/dL 8.4-10.2 abis=062) EGFR (BEAKER) (test 97 mL/min/1.73 sq m ESTIMATED GFR IS NOT lhfh=6655) ACCURATE CREATININE CLEARANCE IN PREDICTING GLOMERULAR FILTRATION RATE. ESTIMATED GFR IS NOT APPLICABLE FOR DIALYSIS PATIENTS. LACTATE DEHYDROGENASE (LDH)2017-11-24 08:01:00 Test Item Value Reference Range Comments LACTATE DEHYDROGENASE (BEAKER) (test dygd=883) 489 U/L 125-220 [id number] 18:07:00 Test Item Value Reference Range Comments POTASSIUM (BEAKER) (test akmy=172) 5.5 meq/L 3.5-5.1 Call if K > 5.4 to renal 713 790 1032CALCIUM, [id number] 06:51:00 Test Item Value Reference Range Comments CALCIUM IONIZED (BEAKER) (test jofl=494) 1.08 mmol/L 1.12-1.27 PH, BLOOD (BEAKER) (test hxqe=9066) 7.35 CBC W/PLT COUNT & AUTO [id number] 06:25:00 Test Item Value Reference Range Comments WHITE BLOOD CELL COUNT (BEAKER) (test gkqz=821) 18.3 K/ L 3.5-10.5 RED BLOOD CELL COUNT (BEAKER) (test hrvg=782) 2.30 M/ L 3.93-5.22 HEMOGLOBIN (BEAKER) (test rerj=546) 6.5 GM/DL 11.2-15.7 HEMATOCRIT (BEAKER) (test yiav=547) 21.1 % 34.1-44.9 MEAN CORPUSCULAR VOLUME (BEAKER) (test cdvc=205) 91.7 fL 79.4-94.8 MEAN CORPUSCULAR HEMOGLOBIN (BEAKER) (test 28.3 pg 25.6-32.2 urqm=347) MEAN CORPUSCULAR HEMOGLOBIN CONC (BEAKER) (test 30.8 GM/DL 32.2-35.5 yidc=657) RED CELL DISTRIBUTION WIDTH (BEAKER) (test 21.2 % 11.7-14.4 ixho=468) PLATELET COUNT (BEAKER) (test wqqu=988) 414 K/CU MM 150-450 MEAN PLATELET VOLUME (BEAKER) (test ucbu=451) 11.5 fL 9.4-12.3 NUCLEATED RED BLOOD CELLS (BEAKER) (test 0 /100 WBC 0-0 cvtg=367) NEUTROPHILS RELATIVE PERCENT (BEAKER) (test 53 % rddu=251) LYMPHOCYTES RELATIVE PERCENT (BEAKER) (test 25 % cfzv=961) MONOCYTES RELATIVE PERCENT (BEAKER) (test 19 % ocxn=073) EOSINOPHILS RELATIVE PERCENT (BEAKER) (test 2 % prox=345) BASOPHILS RELATIVE PERCENT (BEAKER) (test 0 % vyhf=464) NEUTROPHILS ABSOLUTE COUNT (BEAKER) (test 9.74 K/ L 1.56-6.13 jdqd=033) LYMPHOCYTES ABSOLUTE COUNT (BEAKER) (test 4.57 K/ L 1.18-3.74 busb=155) MONOCYTES ABSOLUTE COUNT (BEAKER) (test 3.51 K/ L 0.24-0.36 gtlo=039) EOSINOPHILS ABSOLUTE COUNT (BEAKER) (test 0.29 K/ L 0.04-0.36 fjto=515) BASOPHILS ABSOLUTE COUNT (BEAKER) (test 0.07 K/ L 0.01-0.08 hcys=497) IMMATURE GRANULOCYTES-RELATIVE PERCENT (BEAKER) 1 % 0-1 (test slge=3799) [id number] 05:35:00 Test Item Value Reference Range Comments PHOSPHORUS (BEAKER) (test rdep=597) 4.4 mg/dL 2.3-4.7 [id number] 05:35:00 Test Item Value Reference Range Comments MAGNESIUM (BEAKER) (test vjtm=363) 1.3 mg/dL 1.6-2.6 BASIC METABOLIC [id number] 05:35:00 Test Item Value Reference Range Comments SODIUM (BEAKER) (test 136 meq/L 136-145 xiuf=925) POTASSIUM (BEAKER) (test 5.4 meq/L 3.5-5.1 llzh=315) CHLORIDE (BEAKER) (test 97 meq/L 98-107 uqpe=735) CO2 (BEAKER) (test 31 meq/L 22-29 skhk=326) BLOOD UREA NITROGEN 20 mg/dL 7-21 (BEAKER) (test vtlu=297) CREATININE (BEAKER) (test 0.75 mg/dL 0.57-1.25 eyfp=932) GLUCOSE RANDOM (BEAKER) 81 mg/dL 70-105 (test puby=685) CALCIUM (BEAKER) (test 9.5 mg/dL 8.4-10.2 zgve=543) EGFR (BEAKER) (test 105 mL/min/1.73 sq m ESTIMATED GFR IS NOT silb=5661) ACCURATE CREATININE CLEARANCE IN PREDICTING GLOMERULAR FILTRATION RATE. ESTIMATED GFR IS NOT APPLICABLE FOR DIALYSIS PATIENTS. [id number] 16:19:00 Test Item Value Reference Range Comments POTASSIUM (BEAKER) (test uamm=748) 5.2 meq/L 3.5-5.1 Repeat after 3 hours kayexalate was given; call result 299- [id number] 12:53:00 Test Item Value Reference Range Comments SODIUM (BEAKER) (test pdtm=856) 137 meq/L 136-145 POTASSIUM (BEAKER) (test aklc=807) 5.4 meq/L 3.5-5.1 CHLORIDE (BEAKER) (test hcvi=688) 100 meq/L 98-107 CO2 (BEAKER) (test eyrt=098) 30 meq/L 22-29 Call results [id number] 11:14:00 Test Item Value Reference Range Comments POTASSIUM (BEAKER) (test hivf=639) 5.8 meq/L 3.5-5.1 [id number] 06:40:00 Test Item Value Reference Range Comments PHOSPHORUS (BEAKER) (test fmde=482) 5.4 mg/dL 2.3-4.7 [id number] 06:40:00 Test Item Value Reference Range Comments MAGNESIUM (BEAKER) (test awrk=754) 1.6 mg/dL 1.6-2.6 CALCIUM, [id number] 06:27:00 Test Item Value Reference Range Comments CALCIUM IONIZED (BEAKER) (test gqew=470) 0.99 mmol/L 1.12-1.27 PH, BLOOD (BEAKER) (test yawa=4107) 7.43 CBC W/PLT COUNT & AUTO [id number] 05:53:00 Test Item Value Reference Range Comments WHITE BLOOD CELL COUNT (BEAKER) (test enge=454) 16.2 K/ L 3.5-10.5 RED BLOOD CELL COUNT (BEAKER) (test lzwe=252) 2.38 M/ L 3.93-5.22 HEMOGLOBIN (BEAKER) (test zqfz=975) 7.0 GM/DL 11.2-15.7 HEMATOCRIT (BEAKER) (test yqpt=522) 22.2 % 34.1-44.9 MEAN CORPUSCULAR VOLUME (BEAKER) (test fvap=324) 93.3 fL 79.4-94.8 MEAN CORPUSCULAR HEMOGLOBIN (BEAKER) (test 29.4 pg 25.6-32.2 yztu=827) MEAN CORPUSCULAR HEMOGLOBIN CONC (BEAKER) (test 31.5 GM/DL 32.2-35.5 ppjy=494) RED CELL DISTRIBUTION WIDTH (BEAKER) (test 21.3 % 11.7-14.4 ystd=223) PLATELET COUNT (BEAKER) (test sxnn=466) 390 K/CU MM 150-450 MEAN PLATELET VOLUME (BEAKER) (test ooqw=136) 11.8 fL 9.4-12.3 NUCLEATED RED BLOOD CELLS (BEAKER) (test 0 /100 WBC 0-0 cdzz=403) NEUTROPHILS RELATIVE PERCENT (BEAKER) (test 58 % fevu=725) LYMPHOCYTES RELATIVE PERCENT (BEAKER) (test 23 % jnue=931) MONOCYTES RELATIVE PERCENT (BEAKER) (test 17 % ndoi=591) EOSINOPHILS RELATIVE PERCENT (BEAKER) (test 2 % mzlj=440) BASOPHILS RELATIVE PERCENT (BEAKER) (test 0 % ommu=503) NEUTROPHILS ABSOLUTE COUNT (BEAKER) (test 9.31 K/ L 1.56-6.13 fulg=425) LYMPHOCYTES ABSOLUTE COUNT (BEAKER) (test 3.65 K/ L 1.18-3.74 nlme=191) MONOCYTES ABSOLUTE COUNT (BEAKER) (test 2.70 K/ L 0.24-0.36 drvk=818) EOSINOPHILS ABSOLUTE COUNT (BEAKER) (test 0.36 K/ L 0.04-0.36 tpxq=381) BASOPHILS ABSOLUTE COUNT (BEAKER) (test 0.04 K/ L 0.01-0.08 jlga=307) IMMATURE GRANULOCYTES-RELATIVE PERCENT (BEAKER) 1 % 0-1 (test qjvx=6751) BASIC METABOLIC [id number] 17:35:00 Test Item Value Reference Range Comments SODIUM (BEAKER) (test 133 meq/L 136-145 ylmi=023) POTASSIUM (BEAKER) (test 5.4 meq/L 3.5-5.1 oiag=335) CHLORIDE (BEAKER) (test 99 meq/L 98-107 ppms=535) CO2 (BEAKER) (test 26 meq/L 22-29 zeph=910) BLOOD UREA NITROGEN 23 mg/dL 7-21 (BEAKER) (test wrxx=799) CREATININE (BEAKER) (test 0.83 mg/dL 0.57-1.25 wxmm=030) GLUCOSE RANDOM (BEAKER) 94 mg/dL 70-105 (test iuzr=321) CALCIUM (BEAKER) (test 9.2 mg/dL 8.4-10.2 wjac=993) EGFR (BEAKER) (test 93 mL/min/1.73 sq m ESTIMATED GFR IS NOT qzyn=7479) ACCURATE CREATININE CLEARANCE IN PREDICTING GLOMERULAR FILTRATION RATE. ESTIMATED GFR IS NOT APPLICABLE FOR DIALYSIS PATIENTS. [id number] 06:33:00 Test Item Value Reference Range Comments PHOSPHORUS (BEAKER) (test wclt=040) 5.3 mg/dL 2.3-4.7 [id number] 06:33:00 Test Item Value Reference Range Comments MAGNESIUM (BEAKER) (test fkib=245) 1.6 mg/dL 1.6-2.6 BASIC METABOLIC [id number] 06:33:00 Test Item Value Reference Range Comments SODIUM (BEAKER) (test 133 meq/L 136-145 cfln=192) POTASSIUM (BEAKER) (test 5.2 meq/L 3.5-5.1 kzgq=111) CHLORIDE (BEAKER) (test 97 meq/L 98-107 mitr=393) CO2 (BEAKER) (test 29 meq/L 22-29 xnoz=707) BLOOD UREA NITROGEN 23 mg/dL 7-21 (BEAKER) (test anxg=642) CREATININE (BEAKER) (test 0.77 mg/dL 0.57-1.25 vgfg=186) GLUCOSE RANDOM (BEAKER) 92 mg/dL 70-105 (test nyrb=064) CALCIUM (BEAKER) (test 9.4 mg/dL 8.4-10.2 kyqr=365) EGFR (BEAKER) (test 102 mL/min/1.73 sq m ESTIMATED GFR IS NOT sytx=5271) ACCURATE CREATININE CLEARANCE IN PREDICTING GLOMERULAR FILTRATION RATE. ESTIMATED GFR IS NOT APPLICABLE FOR DIALYSIS PATIENTS. CALCIUM, [id number] 06:22:00 Test Item Value Reference Range Comments CALCIUM IONIZED (BEAKER) (test jlrf=955) 1.18 mmol/L 1.12-1.27 PH, BLOOD (BEAKER) (test ozve=7218) 7.32 B-TYPE NATRIURETIC FACTOR (BNP)2017-11-21 06:19:00 Test Item Value Reference Range Comments B-TYPE NATRIURETIC PEPTIDE (BEAKER) (test 120 pg/mL 0-100 cjgj=953) CBC W/PLT COUNT & AUTO [id number] 05:59:00 Test Item Value Reference Range Comments WHITE BLOOD CELL COUNT (BEAKER) (test bhbi=011) 17.4 K/ L 3.5-10.5 RED BLOOD CELL COUNT (BEAKER) (test vmsp=102) 2.32 M/ L 3.93-5.22 HEMOGLOBIN (BEAKER) (test lefd=325) 6.7 GM/DL 11.2-15.7 HEMATOCRIT (BEAKER) (test gaii=595) 21.6 % 34.1-44.9 MEAN CORPUSCULAR VOLUME (BEAKER) (test lljs=691) 93.1 fL 79.4-94.8 MEAN CORPUSCULAR HEMOGLOBIN (BEAKER) (test 28.9 pg 25.6-32.2 hqqj=837) MEAN CORPUSCULAR HEMOGLOBIN CONC (BEAKER) (test 31.0 GM/DL 32.2-35.5 tqir=919) RED CELL DISTRIBUTION WIDTH (BEAKER) (test 20.9 % 11.7-14.4 uump=826) PLATELET COUNT (BEAKER) (test coxu=237) 367 K/CU MM 150-450 MEAN PLATELET VOLUME (BEAKER) (test ogly=133) 12.1 fL 9.4-12.3 NUCLEATED RED BLOOD CELLS (BEAKER) (test 0 /100 WBC 0-0 ebmd=314) NEUTROPHILS RELATIVE PERCENT (BEAKER) (test 58 % fmld=755) LYMPHOCYTES RELATIVE PERCENT (BEAKER) (test 23 % feor=790) MONOCYTES RELATIVE PERCENT (BEAKER) (test 16 % uefd=239) EOSINOPHILS RELATIVE PERCENT (BEAKER) (test 3 % aomb=980) BASOPHILS RELATIVE PERCENT (BEAKER) (test 1 % bbgy=987) NEUTROPHILS ABSOLUTE COUNT (BEAKER) (test 10.09 K/ L 1.56-6.13 dzfq=339) LYMPHOCYTES ABSOLUTE COUNT (BEAKER) (test 3.92 K/ L 1.18-3.74 gbnh=605) MONOCYTES ABSOLUTE COUNT (BEAKER) (test 2.71 K/ L 0.24-0.36 xbmz=218) EOSINOPHILS ABSOLUTE COUNT (BEAKER) (test 0.46 K/ L 0.04-0.36 edzg=485) BASOPHILS ABSOLUTE COUNT (BEAKER) (test 0.08 K/ L 0.01-0.08 gutg=501) IMMATURE GRANULOCYTES-RELATIVE PERCENT (BEAKER) 1 % 0-1 (test yemz=5814) BLOOD GAS, [id number] 07:22:00 Test Item Value Reference Range Comments PH VENOUS (BEAKER) (test qydw=327) 7.34 7.32-7.42 PCO2 VENOUS (BEAKER) (test jbtk=845) 63 mmHg 41-51 PO2 VENOUS (BEAKER) (test bmtr=732) 133 mmHg 25-40 O2 SATURATION VENOUS (BEAKER) (test zsla=798) 98.4 % 40.0-70.0 HCO3 VENOUS (BEAKER) (test hvqk=930) 33 mmol/L 21-29 BASE EXCESS VENOUS (BEAKER) (test ruhk=813) 6.6 mmol/L -2.0-3.0 PATIENT TEMPERATURE (BEAKER) (test tbkt=5979) 37.0 C FIO2 (BEAKER) (test ouwu=8710) 21.0 % CALCIUM, [id number] 07:20:00 Test Item Value Reference Range Comments CALCIUM IONIZED (BEAKER) (test aeps=014) 1.10 mmol/L 1.12-1.27 PH, BLOOD (BEAKER) (test qmgf=0612) 7.33 [id number] 07:18:00 Test Item Value Reference Range Comments PHOSPHORUS (BEAKER) (test rloo=643) 4.8 mg/dL 2.3-4.7 [id number] 07:18:00 Test Item Value Reference Range Comments MAGNESIUM (BEAKER) (test ipfg=608) 1.6 mg/dL 1.6-2.6 BASIC METABOLIC [id number] 07:18:00 Test Item Value Reference Range Comments SODIUM (BEAKER) (test 137 meq/L 136-145 ikog=673) POTASSIUM (BEAKER) (test 4.8 meq/L 3.5-5.1 evcd=252) CHLORIDE (BEAKER) (test 99 meq/L 98-107 azbo=457) CO2 (BEAKER) (test 31 meq/L 22-29 txcy=005) BLOOD UREA NITROGEN 20 mg/dL 7-21 (BEAKER) (test tpta=441) CREATININE (BEAKER) (test 0.83 mg/dL 0.57-1.25 qzdl=659) GLUCOSE RANDOM (BEAKER) 117 mg/dL 70-105 (test inet=478) CALCIUM (BEAKER) (test 9.5 mg/dL 8.4-10.2 rwtz=637) EGFR (BEAKER) (test 93 mL/min/1.73 sq m ESTIMATED GFR IS NOT fbyp=9865) ACCURATE CREATININE CLEARANCE IN PREDICTING GLOMERULAR FILTRATION RATE. ESTIMATED GFR IS NOT APPLICABLE FOR DIALYSIS PATIENTS. CBC W/PLT COUNT & AUTO [id number] 07:14:00 Test Item Value Reference Range Comments WHITE BLOOD CELL COUNT (BEAKER) (test xnxh=391) 16.7 K/ L 3.5-10.5 RED BLOOD CELL COUNT (BEAKER) (test yaum=183) 2.39 M/ L 3.93-5.22 HEMOGLOBIN (BEAKER) (test mjma=284) 6.9 GM/DL 11.2-15.7 HEMATOCRIT (BEAKER) (test djkk=336) 22.3 % 34.1-44.9 MEAN CORPUSCULAR VOLUME (BEAKER) (test nzoo=066) 93.3 fL 79.4-94.8 MEAN CORPUSCULAR HEMOGLOBIN (BEAKER) (test 28.9 pg 25.6-32.2 qrwx=003) MEAN CORPUSCULAR HEMOGLOBIN CONC (BEAKER) (test 30.9 GM/DL 32.2-35.5 oupd=641) RED CELL DISTRIBUTION WIDTH (BEAKER) (test 21.1 % 11.7-14.4 mzgb=978) PLATELET COUNT (BEAKER) (test infv=323) 344 K/CU MM 150-450 MEAN PLATELET VOLUME (BEAKER) (test xjrc=606) 11.7 fL 9.4-12.3 NUCLEATED RED BLOOD CELLS (BEAKER) (test 0 /100 WBC 0-0 klcf=225) NEUTROPHILS RELATIVE PERCENT (BEAKER) (test 60 % hqkm=265) LYMPHOCYTES RELATIVE PERCENT (BEAKER) (test 23 % pudw=644) MONOCYTES RELATIVE PERCENT (BEAKER) (test 14 % ikbs=332) EOSINOPHILS RELATIVE PERCENT (BEAKER) (test 3 % nqfz=138) BASOPHILS RELATIVE PERCENT (BEAKER) (test 0 % wzii=227) NEUTROPHILS ABSOLUTE COUNT (BEAKER) (test 9.95 K/ L 1.56-6.13 tlwi=581) LYMPHOCYTES ABSOLUTE COUNT (BEAKER) (test 3.92 K/ L 1.18-3.74 ordw=048) MONOCYTES ABSOLUTE COUNT (BEAKER) (test 2.29 K/ L 0.24-0.36 phdm=217) EOSINOPHILS ABSOLUTE COUNT (BEAKER) (test 0.45 K/ L 0.04-0.36 uhwi=741) BASOPHILS ABSOLUTE COUNT (BEAKER) (test 0.04 K/ L 0.01-0.08 rynz=936) IMMATURE GRANULOCYTES-RELATIVE PERCENT (BEAKER) 0 % 0-1 (test johu=3801) [id number] 11:18:00 Test Item Value Reference Range Comments FERRITIN (BEAKER) (test wxos=785) [address]7023 ng/mL 5-275 [id number] 07:10:00 Test Item Value Reference Range Comments MAGNESIUM (BEAKER) (test qicc=489) 2.0 mg/dL 1.6-2.6 BASIC METABOLIC [id number] 07:10:00 Test Item Value Reference Range Comments SODIUM (BEAKER) (test 137 meq/L 136-145 ronf=195) POTASSIUM (BEAKER) (test 4.5 meq/L 3.5-5.1 ltdg=204) CHLORIDE (BEAKER) (test 99 meq/L 98-107 icbn=406) CO2 (BEAKER) (test 35 meq/L 22-29 eslu=534) BLOOD UREA NITROGEN 18 mg/dL 7-21 (BEAKER) (test xgoq=511) CREATININE (BEAKER) (test 0.78 mg/dL 0.57-1.25 ewwz=528) GLUCOSE RANDOM (BEAKER) 102 mg/dL 70-105 (test usgv=414) CALCIUM (BEAKER) (test 9.4 mg/dL 8.4-10.2 bsjk=685) EGFR (BEAKER) (test 100 mL/min/1.73 sq m ESTIMATED GFR IS NOT vtgg=3372) ACCURATE CREATININE CLEARANCE IN PREDICTING GLOMERULAR FILTRATION RATE. ESTIMATED GFR IS NOT APPLICABLE FOR DIALYSIS PATIENTS. CBC (HEMOGRAM ONLY)2017-11-19 07:06:00 Test Item Value Reference Range Comments WHITE BLOOD CELL COUNT (BEAKER) (test ytjs=874) 15.3 K/ L 3.5-10.5 RED BLOOD CELL COUNT (BEAKER) (test doks=552) 2.42 M/ L 3.93-5.22 HEMOGLOBIN (BEAKER) (test vciu=725) 7.1 GM/DL 11.2-15.7 HEMATOCRIT (BEAKER) (test fnlq=942) 22.5 % 34.1-44.9 MEAN CORPUSCULAR VOLUME (BEAKER) (test nosa=330) 93.0 fL 79.4-94.8 MEAN CORPUSCULAR HEMOGLOBIN (BEAKER) (test 29.3 pg 25.6-32.2 czwd=597) MEAN CORPUSCULAR HEMOGLOBIN CONC (BEAKER) (test 31.6 GM/DL 32.2-35.5 ndam=495) RED CELL DISTRIBUTION WIDTH (BEAKER) (test 20.9 % 11.7-14.4 jfts=763) PLATELET COUNT (BEAKER) (test cpdr=436) 324 K/CU MM 150-450 MEAN PLATELET VOLUME (BEAKER) (test cavq=920) 11.8 fL 9.4-12.3 NUCLEATED RED BLOOD CELLS (BEAKER) (test 1 /100 WBC 0-0 zqnw=448) BLOOD [id number] 06:00:00 Test Item Value Reference Range Comments CULTURE (BEAKER) (test pdhv=7506) No growth in 5 days ANTI-NUCLEAR ANTIBODY (AMARILYS)2017-11-17 14:21:00 Test Item Value Reference Range Comments ANTI-NUCLEAR ANTIBODY (AMARILYS) (BEAKER) (test Positive Negative ffqe=592) AMARILYS TITER AND [id number] 14:21:00 Test Item Value Reference Range Comments AMARILYS TITER (BEAKER) (test :160 qnps=4481) AMARILYS PATTERN (BEAKER) (test Multiple nuclear dots pattern eywa=4144) [id number] 07:16:00 Test Item Value Reference Range Comments PHOSPHORUS (BEAKER) (test ngne=603) 4.5 mg/dL 2.3-4.7 [id number] 07:16:00 Test Item Value Reference Range Comments MAGNESIUM (BEAKER) (test jjco=861) 1.4 mg/dL 1.6-2.6 BASIC METABOLIC [id number] 07:16:00 Test Item Value Reference Range Comments SODIUM (BEAKER) (test 141 meq/L 136-145 qbvi=662) POTASSIUM (BEAKER) (test 4.2 meq/L 3.5-5.1 wnwr=668) CHLORIDE (BEAKER) (test 98 meq/L 98-107 ifoc=722) CO2 (BEAKER) (test 34 meq/L 22-29 ieqk=733) BLOOD UREA NITROGEN 21 mg/dL 7-21 (BEAKER) (test vxev=547) CREATININE (BEAKER) (test 0.85 mg/dL 0.57-1.25 sebq=476) GLUCOSE RANDOM (BEAKER) 98 mg/dL 70-105 (test tgke=147) CALCIUM (BEAKER) (test 9.2 mg/dL 8.4-10.2 ufqt=413) EGFR (BEAKER) (test 91 mL/min/1.73 sq m ESTIMATED GFR IS NOT nywa=4175) ACCURATE CREATININE CLEARANCE IN PREDICTING GLOMERULAR FILTRATION RATE. ESTIMATED GFR IS NOT APPLICABLE FOR DIALYSIS PATIENTS. HEPATIC FUNCTION [id number] 07:16:00 Test Item Value Reference Range Comments TOTAL PROTEIN (BEAKER) (test ssqn=927) 8.3 gm/dL 6.0-8.3 ALBUMIN (BEAKER) (test gacz=3397) 3.0 g/dL 3.5-5.0 BILIRUBIN TOTAL (BEAKER) (test tvvr=918) 1.3 mg/dL 0.2-1.2 BILIRUBIN DIRECT (BEAKER) (test ourh=663) 0.7 mg/dL 0.1-0.5 ALKALINE PHOSPHATASE (BEAKER) (test owdo=694) 217 U/L 40-150 AST (SGOT) (BEAKER) (test fipe=599) 106 U/L 5-34 ALT (SGPT) (BEAKER) (test ffpp=709) 46 U/L 6-55 CALCIUM, [id number] 06:50:00 Test Item Value Reference Range Comments CALCIUM IONIZED (BEAKER) (test bqzj=306) 1.11 mmol/L 1.12-1.27 PH, BLOOD (BEAKER) (test ikio=8910) 7.34 CBC W/PLT COUNT & AUTO [id number] 06:09:00 Test Item Value Reference Range Comments WHITE BLOOD CELL COUNT (BEAKER) (test kpwk=684) 16.8 K/ L 3.5-10.5 RED BLOOD CELL COUNT (BEAKER) (test cble=187) 2.53 M/ L 3.93-5.22 HEMOGLOBIN (BEAKER) (test ervz=426) 7.3 GM/DL 11.2-15.7 HEMATOCRIT (BEAKER) (test yzbw=388) 23.3 % 34.1-44.9 MEAN CORPUSCULAR VOLUME (BEAKER) (test rsyy=662) 92.1 fL 79.4-94.8 MEAN CORPUSCULAR HEMOGLOBIN (BEAKER) (test 28.9 pg 25.6-32.2 igee=000) MEAN CORPUSCULAR HEMOGLOBIN CONC (BEAKER) (test 31.3 GM/DL 32.2-35.5 qkmb=293) RED CELL DISTRIBUTION WIDTH (BEAKER) (test 20.2 % 11.7-14.4 joea=007) PLATELET COUNT (BEAKER) (test cwdw=452) 305 K/CU MM 150-450 MEAN PLATELET VOLUME (BEAKER) (test qkqy=462) 12.0 fL 9.4-12.3 NUCLEATED RED BLOOD CELLS (BEAKER) (test 1 /100 WBC 0-0 grxh=229) NEUTROPHILS RELATIVE PERCENT (BEAKER) (test 66 % vvcw=178) LYMPHOCYTES RELATIVE PERCENT (BEAKER) (test 20 % jzco=475) MONOCYTES RELATIVE PERCENT (BEAKER) (test 11 % jltm=193) EOSINOPHILS RELATIVE PERCENT (BEAKER) (test 3 % phlu=033) BASOPHILS RELATIVE PERCENT (BEAKER) (test 0 % auic=479) NEUTROPHILS ABSOLUTE COUNT (BEAKER) (test 10.99 K/ L 1.56-6.13 inku=019) LYMPHOCYTES ABSOLUTE COUNT (BEAKER) (test 3.29 K/ L 1.18-3.74 zgxw=868) MONOCYTES ABSOLUTE COUNT (BEAKER) (test 1.89 K/ L 0.24-0.36 xpgn=882) EOSINOPHILS ABSOLUTE COUNT (BEAKER) (test 0.48 K/ L 0.04-0.36 fqug=434) BASOPHILS ABSOLUTE COUNT (BEAKER) (test 0.05 K/ L 0.01-0.08 tyfb=565) IMMATURE GRANULOCYTES-RELATIVE PERCENT (BEAKER) 0 % 0-1 (test quqp=1769) HEPATITIS PANEL, [id number] 14:32:00 Test Item Value Reference Range Comments HEPATITIS A IGM ANTIBODY (BEAKER) (test Nonreactive Nonreactive aded=202) HEPATITIS B CORE IGM ANTIBODY (BEAKER) (test Nonreactive Nonreactive bjzu=229) HEPATITIS C ANTIBODY (BEAKER) (test fpim=698) Nonreactive Nonreactive HEPATITIS B SURFACE ANTIGEN (2) (BEAKER) (test Nonreactive Nonreactive acie=2190) RAD, MANDIBLE, LESS THAN 4 [id number] 12:28:00Reason for exam:->fever, dental cariesFINAL REPORT Mandible [...] air cells are well aerated. Signed: Anselmo CainepStorytree Verified Date/Time: 11/16/2017 12:28:43 Reading Location: [facility] Radiology Reading Room RAD, CHEST, 2 [id number] 10:47:00Reason for exam:-> fever, chest painFINAL REPORT [...] MDReport Verified Date/Time: 11/16/2017 10:47:19 Reading Location: [facility] Radiology Reading Room URINE [id number] 09:53:00 Test Item Value Reference Range Comments CULTURE (BEAKER) (test zqwq=3080) >100,000 col/mL skin valentino CBC W/PLT COUNT & AUTO [id number] 09:20:00 Test Item Value Reference Range Comments WHITE BLOOD CELL COUNT (BEAKER) (test tzez=981) 18.6 K/ L 3.5-10.5 RED BLOOD CELL COUNT (BEAKER) (test lgxi=820) 2.63 M/ L 3.93-5.22 HEMOGLOBIN (BEAKER) (test ojns=575) 7.6 GM/DL 11.2-15.7 HEMATOCRIT (BEAKER) (test hakm=833) 23.8 % 34.1-44.9 MEAN CORPUSCULAR VOLUME (BEAKER) (test qopz=628) 90.5 fL 79.4-94.8 MEAN CORPUSCULAR HEMOGLOBIN (BEAKER) (test 28.9 pg 25.6-32.2 qfin=516) MEAN CORPUSCULAR HEMOGLOBIN CONC (BEAKER) (test 31.9 GM/DL 32.2-35.5 gjue=802) RED CELL DISTRIBUTION WIDTH (BEAKER) (test 19.9 % 11.7-14.4 uayc=769) PLATELET COUNT (BEAKER) (test xgyo=208) 330 K/CU MM 150-450 MEAN PLATELET VOLUME (BEAKER) (test ahkf=911) 11.9 fL 9.4-12.3 NUCLEATED RED BLOOD CELLS (BEAKER) (test 1 /100 WBC 0-0 chzd=626) NEUTROPHILS RELATIVE PERCENT (BEAKER) (test 65 % hdaz=134) LYMPHOCYTES RELATIVE PERCENT (BEAKER) (test 22 % fpvx=082) MONOCYTES RELATIVE PERCENT (BEAKER) (test 10 % jlxj=963) EOSINOPHILS RELATIVE PERCENT (BEAKER) (test 2 % wcsc=232) BASOPHILS RELATIVE PERCENT (BEAKER) (test 0 % hrqm=807) NEUTROPHILS ABSOLUTE COUNT (BEAKER) (test 12.09 K/ L 1.56-6.13 ifsq=742) LYMPHOCYTES ABSOLUTE COUNT (BEAKER) (test 4.02 K/ L 1.18-3.74 dbih=476) MONOCYTES ABSOLUTE COUNT (BEAKER) (test 1.90 K/ L 0.24-0.36 ifok=812) EOSINOPHILS ABSOLUTE COUNT (BEAKER) (test 0.41 K/ L 0.04-0.36 ydtd=010) BASOPHILS ABSOLUTE COUNT (BEAKER) (test 0.05 K/ L 0.01-0.08 mozr=958) IMMATURE GRANULOCYTES-RELATIVE PERCENT (BEAKER) 0 % 0-1 (test qtmb=9316) (MANUAL DIFFERENTIAL)2017-11-16 09:20:00 Test Item Value Reference Range Comments TOTAL COUNTED (BEAKER) (test vozy=9282) WBC MORPHOLOGY (BEAKER) (test nhmi=986) Normal PLT MORPHOLOGY (BEAKER) (test plxd=369) Normal POLYCHROMATOPHILLIC RBCS(BEAKER) (test fmqb=985) 1+ few SICKLE CELLS (BEAKER) (test idpm=572) 1+ few TARGET CELLS (BEAKER) (test sjyo=083) 2+ moderate CALCIUM, [id number] 07:28:00 Test Item Value Reference Range Comments CALCIUM IONIZED (BEAKER) (test pfaq=742) 0.97 mmol/L 1.12-1.27 PH, BLOOD (BEAKER) (test ajqf=1733) 7.45 [id number] 05:48:00 Test Item Value Reference Range Comments PHOSPHORUS (BEAKER) (test uhwo=273) 4.8 mg/dL 2.3-4.7 [id number] 05:48:00 Test Item Value Reference Range Comments MAGNESIUM (BEAKER) (test xnfq=367) 1.6 mg/dL 1.6-2.6 BASIC METABOLIC [id number] 05:48:00 Test Item Value Reference Range Comments SODIUM (BEAKER) (test 139 meq/L 136-145 athy=224) POTASSIUM (BEAKER) (test 3.9 meq/L 3.5-5.1 qnmk=805) CHLORIDE (BEAKER) (test 98 meq/L 98-107 zsda=821) CO2 (BEAKER) (test 32 meq/L 22-29 hnej=512) BLOOD UREA NITROGEN 23 mg/dL 7-21 (BEAKER) (test pouf=544) CREATININE (BEAKER) (test 1.10 mg/dL 0.57-1.25 byiu=809) GLUCOSE RANDOM (BEAKER) 115 mg/dL 70-105 (test heuo=038) CALCIUM (BEAKER) (test 9.0 mg/dL 8.4-10.2 abup=300) EGFR (BEAKER) (test 67 mL/min/1.73 sq m ESTIMATED GFR IS NOT npur=3871) ACCURATE CREATININE CLEARANCE IN PREDICTING GLOMERULAR FILTRATION RATE. ESTIMATED GFR IS NOT APPLICABLE FOR DIALYSIS PATIENTS. URINALYSIS W/ [id number] 19:14:00 Test Item Value Reference Range Comments COLOR (BEAKER) (test zhtv=699) Yellow CLARITY (BEAKER) (test qdrr=831) Clear SPECIFIC GRAVITY UA (BEAKER) (test ihmg=764) 1.006 1.001-1.035 PH UA (BEAKER) (test cwlc=124) 7.5 5.0-8.0 PROTEIN UA (BEAKER) (test bewk=016) Negative Negative GLUCOSE UA (BEAKER) (test emkb=379) Negative Negative KETONES UA (BEAKER) (test agnd=234) Negative Negative BILIRUBIN UA (BEAKER) (test mknb=309) Negative Negative BLOOD UA (BEAKER) (test yyvq=267) Trace Negative NITRITE UA (BEAKER) (test trpm=612) Negative Negative LEUKOCYTE ESTERASE UA (BEAKER) (test fhfw=548) Small Negative UROBILINOGEN UA (BEAKER) (test twgc=624) 0.2 mg/dL 0.2-1.0 RBC UA (BEAKER) (test wlws=567) < /HPF WBC UA (BEAKER) (test lsaz=026) 7 /HPF BACTERIA (BEAKER) (test qzoa=727) Rare SQUAMOUS EPITHELIAL (BEAKER) (test jevb=428) 1 /HPF SOURCE(BEAKER) (test bttc=0694) Urine, Voided [id number] 13:26:00 Test Item Value Reference Range Comments LIPASE (BEAKER) (test twpw=070) 95 U/L 8-78 RAD, ABDOMEN/KUB, 1 VIEW [id number] 12:43:00Reason for exam:->abdominal painFINAL REPORT Abdomen one [...] Caineport Verified Date/Time: 11/15/2017 12:43:04 Reading Location: [facility] Radiology Reading Room CBC W/PLT COUNT & AUTO [id number] 10:00:00 Test Item Value Reference Range Comments WHITE BLOOD CELL COUNT (BEAKER) (test ezvp=351) 18.8 K/ L 3.5-10.5 RED BLOOD CELL COUNT (BEAKER) (test vrof=593) 1.83 M/ L 3.93-5.22 HEMOGLOBIN (BEAKER) (test hotu=398) 5.4 GM/DL 11.2-15.7 HEMATOCRIT (BEAKER) (test zuef=277) 16.7 % 34.1-44.9 MEAN CORPUSCULAR VOLUME (BEAKER) (test jxjx=422) 91.3 fL 79.4-94.8 MEAN CORPUSCULAR HEMOGLOBIN (BEAKER) (test 29.5 pg 25.6-32.2 ohzl=109) MEAN CORPUSCULAR HEMOGLOBIN CONC (BEAKER) (test 32.3 GM/DL 32.2-35.5 qqzt=045) RED CELL DISTRIBUTION WIDTH (BEAKER) (test 21.7 % 11.7-14.4 zomb=011) PLATELET COUNT (BEAKER) (test ohud=715) 340 K/CU MM 150-450 MEAN PLATELET VOLUME (BEAKER) (test pgef=045) 11.3 fL 9.4-12.3 NUCLEATED RED BLOOD CELLS (BEAKER) (test 2 /100 WBC 0-0 xwxq=418) NEUTROPHILS RELATIVE PERCENT (BEAKER) (test 65 % bbsh=989) LYMPHOCYTES RELATIVE PERCENT (BEAKER) (test 23 % cayw=637) MONOCYTES RELATIVE PERCENT (BEAKER) (test 10 % fvoe=505) EOSINOPHILS RELATIVE PERCENT (BEAKER) (test 1 % iteb=719) BASOPHILS RELATIVE PERCENT (BEAKER) (test 0 % qtvk=063) NEUTROPHILS ABSOLUTE COUNT (BEAKER) (test 12.25 K/ L 1.56-6.13 pfiy=613) LYMPHOCYTES ABSOLUTE COUNT (BEAKER) (test 4.31 K/ L 1.18-3.74 hhps=598) MONOCYTES ABSOLUTE COUNT (BEAKER) (test 1.88 K/ L 0.24-0.36 xvbl=159) EOSINOPHILS ABSOLUTE COUNT (BEAKER) (test 0.26 K/ L 0.04-0.36 espp=037) BASOPHILS ABSOLUTE COUNT (BEAKER) (test 0.02 K/ L 0.01-0.08 radd=003) IMMATURE GRANULOCYTES-RELATIVE PERCENT (BEAKER) 1 % 0-1 (test dddv=5241) (MANUAL DIFFERENTIAL)2017-11-15 10:00:00 Test Item Value Reference Range Comments TOTAL COUNTED (BEAKER) (test sjyd=4707) ATYPICAL LYMPHS(BEAKER) (test amnv=8633) Present LARGE PLT(BEAKER) (test dxtf=6996) Present HYPOCHROMIA (BEAKER) (test phyz=802) 1+ few POLYCHROMATOPHILLIC RBCS(BEAKER) (test qjzq=937) 1+ few SICKLE CELLS (BEAKER) (test tonn=692) 1+ few TARGET CELLS (BEAKER) (test sjno=824) 1+ few U/S, ENDOVAGINAL (EV)2017-11-15 09:03:00Reason for [...] MDReport Verified Date/Time: 2017 09:03:15 Reading Location: [facility] [id number] Ultrasound Reading Room CBC W/ PLT COUNT & AUTO [id number] 08:32:00 Test Item Value Reference Range Comments WHITE BLOOD CELL COUNT (BEAKER) (test ovxs=354) 19.8 K/ L 3.5-10.5 RED BLOOD CELL COUNT (BEAKER) (test vrsj=886) 1.89 M/ L 3.93-5.22 HEMOGLOBIN (BEAKER) (test jxwb=117) 5.6 GM/DL 11.2-15.7 HEMATOCRIT (BEAKER) (test niuj=916) 17.2 % 34.1-44.9 MEAN CORPUSCULAR VOLUME (BEAKER) (test gcex=862) 91.0 fL 79.4-94.8 MEAN CORPUSCULAR HEMOGLOBIN (BEAKER) (test 29.6 pg 25.6-32.2 rypz=174) MEAN CORPUSCULAR HEMOGLOBIN CONC (BEAKER) (test 32.6 GM/DL 32.2-35.5 bmyi=401) RED CELL DISTRIBUTION WIDTH (BEAKER) (test 21.4 % 11.7-14.4 rnms=303) PLATELET COUNT (BEAKER) (test ffrl=628) 366 K/CU MM 150-450 MEAN PLATELET VOLUME (BEAKER) (test bkwv=897) 11.6 fL 9.4-12.3 NUCLEATED RED BLOOD CELLS (BEAKER) (test 2 /100 WBC 0-0 iuwr=825) NEUTROPHILS RELATIVE PERCENT (BEAKER) (test 70 % bvva=944) LYMPHOCYTES RELATIVE PERCENT (BEAKER) (test 18 % pcpf=702) MONOCYTES RELATIVE PERCENT (BEAKER) (test 10 % drou=256) EOSINOPHILS RELATIVE PERCENT (BEAKER) (test 1 % uejm=217) BASOPHILS RELATIVE PERCENT (BEAKER) (test 0 % kqts=149) NEUTROPHILS ABSOLUTE COUNT (BEAKER) (test 13.93 K/ L 1.56-6.13 toom=603) LYMPHOCYTES ABSOLUTE COUNT (BEAKER) (test 3.51 K/ L 1.18-3.74 howp=272) MONOCYTES ABSOLUTE COUNT (BEAKER) (test 2.03 K/ L 0.24-0.36 fexl=677) EOSINOPHILS ABSOLUTE COUNT (BEAKER) (test 0.23 K/ L 0.04-0.36 xvtp=198) BASOPHILS ABSOLUTE COUNT (BEAKER) (test 0.02 K/ L 0.01-0.08 sisc=361) IMMATURE GRANULOCYTES-RELATIVE PERCENT (BEAKER) 0 % 0-1 (test aoee=3939) [id number] 06:16:00 Test Item Value Reference Range Comments PHOSPHORUS (BEAKER) (test ktad=447) 4.6 mg/dL 2.3-4.7 [id number] 06:16:00 Test Item Value Reference Range Comments MAGNESIUM (BEAKER) (test xxex=489) 1.6 mg/dL 1.6-2.6 BASIC METABOLIC [id number] 06:16:00 Test Item Value Reference Range Comments SODIUM (BEAKER) (test 139 meq/L 136-145 nxno=460) POTASSIUM (BEAKER) (test 3.9 meq/L 3.5-5.1 arfk=905) CHLORIDE (BEAKER) (test 97 meq/L 98-107 etlj=379) CO2 (BEAKER) (test 33 meq/L 22-29 kkfv=403) BLOOD UREA NITROGEN 24 mg/dL 7-21 (BEAKER) (test btkh=123) CREATININE (BEAKER) (test 1.15 mg/dL 0.57-1.25 ijnm=633) GLUCOSE RANDOM (BEAKER) 104 mg/dL 70-105 (test vdmk=179) CALCIUM (BEAKER) (test 9.1 mg/dL 8.4-10.2 lxbx=688) EGFR (BEAKER) (test 64 mL/min/1.73 sq m ESTIMATED GFR IS NOT exgf=6648) ACCURATE CREATININE CLEARANCE IN PREDICTING GLOMERULAR FILTRATION RATE. ESTIMATED GFR IS NOT APPLICABLE FOR DIALYSIS PATIENTS. HEPATIC FUNCTION [id number] 06:16:00 Test Item Value Reference Range Comments TOTAL PROTEIN (BEAKER) (test hljq=506) 8.2 gm/dL 6.0-8.3 ALBUMIN (BEAKER) (test ufnd=5838) 2.9 g/dL 3.5-5.0 BILIRUBIN TOTAL (BEAKER) (test fbhu=950) 1.1 mg/dL 0.2-1.2 BILIRUBIN DIRECT (BEAKER) (test njxy=369) 0.5 mg/dL 0.1-0.5 ALKALINE PHOSPHATASE (BEAKER) (test hrbw=568) 164 U/L 40-150 AST (SGOT) (BEAKER) (test fzpd=935) 76 U/L 5-34 ALT (SGPT) (BEAKER) (test kkhj=391) 34 U/L 6-55 CALCIUM, [id number] 06:00:00 Test Item Value Reference Range Comments CALCIUM IONIZED (BEAKER) (test wdgb=731) 0.93 mmol/L 1.12-1.27 PH, BLOOD (BEAKER) (test gdox=1262) 7.52 URINALYSIS W/ [id number] 18:32:00 Test Item Value Reference Range Comments COLOR (BEAKER) (test vrcj=479) Light Yellow CLARITY (BEAKER) (test nalb=951) Clear SPECIFIC GRAVITY UA (BEAKER) (test amdn=332) 1.006 1.001-1.035 PH UA (BEAKER) (test qzyx=221) 7.0 5.0-8.0 PROTEIN UA (BEAKER) (test bcyp=900) Negative Negative GLUCOSE UA (BEAKER) (test wlkq=131) Negative Negative KETONES UA (BEAKER) (test gqih=398) Negative Negative BILIRUBIN UA (BEAKER) (test qodl=352) Negative Negative BLOOD UA (BEAKER) (test nyak=694) Trace Negative NITRITE UA (BEAKER) (test thpv=353) Negative Negative LEUKOCYTE ESTERASE UA (BEAKER) (test oalq=834) Small Negative UROBILINOGEN UA (BEAKER) (test kyjl=452) 0.2 mg/dL 0.2-1.0 RBC UA (BEAKER) (test padv=604) 1 /HPF WBC UA (BEAKER) (test cvtn=455) 7 /HPF BACTERIA (BEAKER) (test cqnh=970) Rare MUCUS (BEAKER) (test fajp=3587) Rare SQUAMOUS EPITHELIAL (BEAKER) (test ekmw=848) 4 /HPF SOURCE(BEAKER) (test vqrp=3568) Urine, Voided CALCIUM, [id number] 07:19:00 Test Item Value Reference Range Comments CALCIUM IONIZED (BEAKER) (test bkoc=218) 1.03 mmol/L 1.12-1.27 PH, BLOOD (BEAKER) (test oagp=9545) 7.40 CBC W/PLT COUNT & AUTO [id number] 06:26:00 Test Item Value Reference Range Comments WHITE BLOOD CELL COUNT (BEAKER) (test lbsj=070) 18.5 K/ L 3.5-10.5 RED BLOOD CELL COUNT (BEAKER) (test hguy=633) 2.02 M/ L 3.93-5.22 HEMOGLOBIN (BEAKER) (test jllx=567) 6.0 GM/DL 11.2-15.7 HEMATOCRIT (BEAKER) (test rrvn=552) 18.5 % 34.1-44.9 MEAN CORPUSCULAR VOLUME (BEAKER) (test aoje=077) 91.6 fL 79.4-94.8 MEAN CORPUSCULAR HEMOGLOBIN (BEAKER) (test 29.7 pg 25.6-32.2 wiqo=688) MEAN CORPUSCULAR HEMOGLOBIN CONC (BEAKER) (test 32.4 GM/DL 32.2-35.5 phxz=743) RED CELL DISTRIBUTION WIDTH (BEAKER) (test 21.9 % 11.7-14.4 jngv=457) PLATELET COUNT (BEAKER) (test afsa=825) 337 K/CU MM 150-450 MEAN PLATELET VOLUME (BEAKER) (test okmx=017) 11.7 fL 9.4-12.3 NUCLEATED RED BLOOD CELLS (BEAKER) (test 4 /100 WBC 0-0 kbgi=276) NEUTROPHILS RELATIVE PERCENT (BEAKER) (test 76 % bxud=341) LYMPHOCYTES RELATIVE PERCENT (BEAKER) (test 16 % zbwp=190) MONOCYTES RELATIVE PERCENT (BEAKER) (test 6 % lxqf=472) EOSINOPHILS RELATIVE PERCENT (BEAKER) (test 1 % oryv=884) BASOPHILS RELATIVE PERCENT (BEAKER) (test 0 % cqpv=494) NEUTROPHILS ABSOLUTE COUNT (BEAKER) (test 13.98 K/ L 1.56-6.13 cpam=842) LYMPHOCYTES ABSOLUTE COUNT (BEAKER) (test 3.02 K/ L 1.18-3.74 qjvj=612) MONOCYTES ABSOLUTE COUNT (BEAKER) (test 1.13 K/ L 0.24-0.36 vozc=931) EOSINOPHILS ABSOLUTE COUNT (BEAKER) (test 0.09 K/ L 0.04-0.36 ohpb=641) BASOPHILS ABSOLUTE COUNT (BEAKER) (test 0.05 K/ L 0.01-0.08 phvk=874) IMMATURE GRANULOCYTES-RELATIVE PERCENT (BEAKER) 1 % 0-1 (test emcc=9129) [id number] 06:21:00 Test Item Value Reference Range Comments PHOSPHORUS (BEAKER) (test iyyk=192) 4.3 mg/dL 2.3-4.7 [id number] 06:21:00 Test Item Value Reference Range Comments MAGNESIUM (BEAKER) (test dpwc=735) 2.1 mg/dL 1.6-2.6 BASIC METABOLIC [id number] 06:21:00 Test Item Value Reference Range Comments SODIUM (BEAKER) (test 139 meq/L 136-145 tiue=168) POTASSIUM (BEAKER) (test 4.0 meq/L 3.5-5.1 xkgg=083) CHLORIDE (BEAKER) (test 99 meq/L 98-107 eila=089) CO2 (BEAKER) (test 31 meq/L 22-29 jtty=548) BLOOD UREA NITROGEN 23 mg/dL 7-21 (BEAKER) (test ffdf=453) CREATININE (BEAKER) (test 1.29 mg/dL 0.57-1.25 ygsf=366) GLUCOSE RANDOM (BEAKER) 116 mg/dL 70-105 (test yzlx=740) CALCIUM (BEAKER) (test 8.8 mg/dL 8.4-10.2 gwoe=687) EGFR (BEAKER) (test 56 mL/min/1.73 sq m ESTIMATED GFR IS NOT izts=9679) ACCURATE CREATININE CLEARANCE IN PREDICTING GLOMERULAR FILTRATION RATE. ESTIMATED GFR IS NOT APPLICABLE FOR DIALYSIS PATIENTS. B-TYPE NATRIURETIC FACTOR (BNP)2017-11-13 07:27:00 Test Item Value Reference Range Comments B-TYPE NATRIURETIC PEPTIDE (BEAKER) (test 166 pg/mL 0-100 nohm=011) [id number] 07:26:00 Test Item Value Reference Range Comments PHOSPHORUS (BEAKER) (test qiit=814) 4.6 mg/dL 2.3-4.7 [id number] 07:26:00 Test Item Value Reference Range Comments MAGNESIUM (BEAKER) (test pkxv=625) 1.6 mg/dL 1.6-2.6 BASIC METABOLIC [id number] 07:26:00 Test Item Value Reference Range Comments SODIUM (BEAKER) (test 139 meq/L 136-145 bmlq=671) POTASSIUM (BEAKER) (test 3.5 meq/L 3.5-5.1 xutg=228) CHLORIDE (BEAKER) (test 101 meq/L 98-107 idtt=764) CO2 (BEAKER) (test 32 meq/L 22-29 byaf=713) BLOOD UREA NITROGEN 14 mg/dL 7-21 (BEAKER) (test ppht=119) CREATININE (BEAKER) (test 1.09 mg/dL 0.57-1.25 ixbe=471) GLUCOSE RANDOM (BEAKER) 92 mg/dL 70-105 (test bgjj=152) CALCIUM (BEAKER) (test 8.5 mg/dL 8.4-10.2 iblx=426) EGFR (BEAKER) (test 68 mL/min/1.73 sq m ESTIMATED GFR IS NOT dugf=2583) ACCURATE CREATININE CLEARANCE IN PREDICTING GLOMERULAR FILTRATION RATE. ESTIMATED GFR IS NOT APPLICABLE FOR DIALYSIS PATIENTS. CBC W/PLT COUNT & AUTO [id number] 07:23:00 Test Item Value Reference Range Comments WHITE BLOOD CELL COUNT (BEAKER) (test oxpv=659) 18.4 K/ L 3.5-10.5 RED BLOOD CELL COUNT (BEAKER) (test gkqg=180) 2.03 M/ L 3.93-5.22 HEMOGLOBIN (BEAKER) (test nkpi=061) 6.0 GM/DL 11.2-15.7 HEMATOCRIT (BEAKER) (test icar=889) 18.8 % 34.1-44.9 MEAN CORPUSCULAR VOLUME (BEAKER) (test tsbs=584) 92.6 fL 79.4-94.8 MEAN CORPUSCULAR HEMOGLOBIN (BEAKER) (test 29.6 pg 25.6-32.2 ihuo=513) MEAN CORPUSCULAR HEMOGLOBIN CONC (BEAKER) (test 31.9 GM/DL 32.2-35.5 ouyd=197) RED CELL DISTRIBUTION WIDTH (BEAKER) (test 22.9 % 11.7-14.4 tkez=477) PLATELET COUNT (BEAKER) (test pqys=697) 302 K/CU MM 150-450 MEAN PLATELET VOLUME (BEAKER) (test cvry=459) 11.3 fL 9.4-12.3 NUCLEATED RED BLOOD CELLS (BEAKER) (test 7 /100 WBC 0-0 njoo=379) NEUTROPHILS RELATIVE PERCENT (BEAKER) (test 74 % yrgo=689) LYMPHOCYTES RELATIVE PERCENT (BEAKER) (test 18 % efeo=699) MONOCYTES RELATIVE PERCENT (BEAKER) (test 7 % waxr=727) EOSINOPHILS RELATIVE PERCENT (BEAKER) (test 0 % odiz=138) BASOPHILS RELATIVE PERCENT (BEAKER) (test 0 % peii=144) NEUTROPHILS ABSOLUTE COUNT (BEAKER) (test 13.58 K/ L 1.56-6.13 nbgp=707) LYMPHOCYTES ABSOLUTE COUNT (BEAKER) (test 3.24 K/ L 1.18-3.74 khfm=704) MONOCYTES ABSOLUTE COUNT (BEAKER) (test 1.23 K/ L 0.24-0.36 evws=417) EOSINOPHILS ABSOLUTE COUNT (BEAKER) (test 0.07 K/ L 0.04-0.36 rnpp=309) BASOPHILS ABSOLUTE COUNT (BEAKER) (test 0.05 K/ L 0.01-0.08 epgx=300) IMMATURE GRANULOCYTES-RELATIVE PERCENT (BEAKER) 1 % 0-1 (test irtp=4670) CALCIUM, [id number] 07:08:00 Test Item Value Reference Range Comments CALCIUM IONIZED (BEAKER) (test ilzg=620) 1.03 mmol/L 1.12-1.27 PH, BLOOD (BEAKER) (test gmqf=4557) 7.38 CBC W/PLT COUNT & AUTO [id number] 08:23:00 Test Item Value Reference Range Comments WHITE BLOOD CELL COUNT (BEAKER) (test akoc=872) 20.4 K/ L 3.5-10.5 RED BLOOD CELL COUNT (BEAKER) (test ikqr=549) 2.08 M/ L 3.93-5.22 HEMOGLOBIN (BEAKER) (test vrpg=650) 6.4 GM/DL 11.2-15.7 HEMATOCRIT (BEAKER) (test viiv=449) 19.7 % 34.1-44.9 MEAN CORPUSCULAR VOLUME (BEAKER) (test kxwv=187) 94.7 fL 79.4-94.8 MEAN CORPUSCULAR HEMOGLOBIN (BEAKER) (test 30.8 pg 25.6-32.2 xqpr=500) MEAN CORPUSCULAR HEMOGLOBIN CONC (BEAKER) (test 32.5 GM/DL 32.2-35.5 vnkq=456) RED CELL DISTRIBUTION WIDTH (BEAKER) (test 24.3 % 11.7-14.4 rcjv=681) PLATELET COUNT (BEAKER) (test abrr=133) 290 K/CU MM 150-450 MEAN PLATELET VOLUME (BEAKER) (test qazj=723) 11.5 fL 9.4-12.3 NUCLEATED RED BLOOD CELLS (BEAKER) (test 19 /100 WBC 0-0 mopq=600) NEUTROPHILS RELATIVE PERCENT (BEAKER) (test 75 % qqzz=013) LYMPHOCYTES RELATIVE PERCENT (BEAKER) (test 16 % nepk=801) MONOCYTES RELATIVE PERCENT (BEAKER) (test 8 % eyxe=160) EOSINOPHILS RELATIVE PERCENT (BEAKER) (test 0 % cmux=314) BASOPHILS RELATIVE PERCENT (BEAKER) (test 0 % pabb=294) NEUTROPHILS ABSOLUTE COUNT (BEAKER) (test 15.32 K/ L 1.56-6.13 flkk=363) LYMPHOCYTES ABSOLUTE COUNT (BEAKER) (test 3.24 K/ L 1.18-3.74 jvvy=926) MONOCYTES ABSOLUTE COUNT (BEAKER) (test 1.61 K/ L 0.24-0.36 zyui=199) EOSINOPHILS ABSOLUTE COUNT (BEAKER) (test 0.05 K/ L 0.04-0.36 piji=158) BASOPHILS ABSOLUTE COUNT (BEAKER) (test 0.04 K/ L 0.01-0.08 kkrj=288) IMMATURE GRANULOCYTES-RELATIVE PERCENT (BEAKER) 0 % 0-1 (test ibhd=5451) (MANUAL DIFFERENTIAL)2017-11-12 08:23:00 Test Item Value Reference Range Comments TOTAL COUNTED (BEAKER) (test upsf=4747) WBC MORPHOLOGY (BEAKER) (test ryxt=913) Normal LARGE PLT(BEAKER) (test lrts=6442) Present HYPOCHROMIA (BEAKER) (test eucz=574) 1+ few POLYCHROMATOPHILLIC RBCS(BEAKER) (test wuyz=499) 1+ few SICKLE CELLS (BEAKER) (test uiuj=408) 1+ few TARGET CELLS (BEAKER) (test deer=793) 1+ few [id number] 08:11:00 Test Item Value Reference Range Comments PHOSPHORUS (BEAKER) (test ofvo=730) 4.3 mg/dL 2.3-4.7 [id number] 08:11:00 Test Item Value Reference Range Comments MAGNESIUM (BEAKER) (test clwn=122) 1.3 mg/dL 1.6-2.6 BASIC METABOLIC [id number] 08:11:00 Test Item Value Reference Range Comments SODIUM (BEAKER) (test 140 meq/L 136-145 giex=032) POTASSIUM (BEAKER) (test 3.4 meq/L 3.5-5.1 cwhu=988) CHLORIDE (BEAKER) (test 103 meq/L 98-107 frip=046) CO2 (BEAKER) (test 27 meq/L 22-29 eqth=119) BLOOD UREA NITROGEN 15 mg/dL 7-21 (BEAKER) (test tvda=995) CREATININE (BEAKER) (test 1.10 mg/dL 0.57-1.25 ppye=206) GLUCOSE RANDOM (BEAKER) 91 mg/dL 70-105 (test vqrk=104) CALCIUM (BEAKER) (test 8.5 mg/dL 8.4-10.2 cviy=638) EGFR (BEAKER) (test 67 mL/min/1.73 sq m ESTIMATED GFR IS NOT dfac=7764) ACCURATE CREATININE CLEARANCE IN PREDICTING GLOMERULAR FILTRATION RATE. ESTIMATED GFR IS NOT APPLICABLE FOR DIALYSIS PATIENTS. CALCIUM, [id number] 07:19:00 Test Item Value Reference Range Comments CALCIUM IONIZED (BEAKER) (test favf=294) 0.98 mmol/L 1.12-1.27 PH, BLOOD (BEAKER) (test mpoc=7288) 7.39 BLOOD [id number] 00:00:00 Test Item Value Reference Range Comments CULTURE (BEAKER) (test tujd=1549) No growth in 5 days CBC W/PLT COUNT & AUTO [id number] 13:18:00 Test Item Value Reference Range Comments WHITE BLOOD CELL COUNT (BEAKER) (test wtcr=433) 20.7 K/ L 3.5-10.5 RED BLOOD CELL COUNT (BEAKER) (test ynjf=561) 2.12 M/ L 3.93-5.22 HEMOGLOBIN (BEAKER) (test ggoo=291) 6.7 GM/DL 11.2-15.7 HEMATOCRIT (BEAKER) (test uave=626) 20.4 % 34.1-44.9 MEAN CORPUSCULAR VOLUME (BEAKER) (test bnlc=288) 96.2 fL 79.4-94.8 MEAN CORPUSCULAR HEMOGLOBIN (BEAKER) (test 31.6 pg 25.6-32.2 cfer=959) MEAN CORPUSCULAR HEMOGLOBIN CONC (BEAKER) (test 32.8 GM/DL 32.2-35.5 lbns=426) RED CELL DISTRIBUTION WIDTH (BEAKER) (test 25.9 % 11.7-14.4 klev=382) PLATELET COUNT (BEAKER) (test pnvg=287) 262 K/CU MM 150-450 MEAN PLATELET VOLUME (BEAKER) (test kapm=065) 11.2 fL 9.4-12.3 NUCLEATED RED BLOOD CELLS (BEAKER) (test 40 /100 WBC 0-0 hnbw=307) NEUTROPHILS RELATIVE PERCENT (BEAKER) (test 76 % zarx=327) LYMPHOCYTES RELATIVE PERCENT (BEAKER) (test 16 % rpdn=357) MONOCYTES RELATIVE PERCENT (BEAKER) (test 8 % mhff=898) EOSINOPHILS RELATIVE PERCENT (BEAKER) (test 0 % yeqq=199) BASOPHILS RELATIVE PERCENT (BEAKER) (test 0 % rgsm=718) NEUTROPHILS ABSOLUTE COUNT (BEAKER) (test 15.60 K/ L 1.56-6.13 wott=237) LYMPHOCYTES ABSOLUTE COUNT (BEAKER) (test 3.23 K/ L 1.18-3.74 fsay=701) MONOCYTES ABSOLUTE COUNT (BEAKER) (test 1.54 K/ L 0.24-0.36 gayt=029) EOSINOPHILS ABSOLUTE COUNT (BEAKER) (test 0.02 K/ L 0.04-0.36 suyy=487) BASOPHILS ABSOLUTE COUNT (BEAKER) (test 0.05 K/ L 0.01-0.08 xzzw=690) IMMATURE GRANULOCYTES-RELATIVE PERCENT (BEAKER) 1 % 0-1 (test tuin=2981) (MANUAL DIFFERENTIAL)2017-11-11 13:18:00 Test Item Value Reference Range Comments TOTAL COUNTED (BEAKER) (test ygwt=3677) WBC MORPHOLOGY (BEAKER) (test gcwz=867) Normal LARGE PLT(BEAKER) (test glwv=9220) Present POLYCHROMATOPHILLIC RBCS(BEAKER) (test ppcz=316) 1+ few SICKLE CELLS (BEAKER) (test obhl=810) 1+ few TARGET CELLS (BEAKER) (test pcts=553) 1+ few [id number] 08:05:00 Test Item Value Reference Range Comments PHOSPHORUS (BEAKER) (test kzuw=029) 5.0 mg/dL 2.3-4.7 [id number] 08:05:00 Test Item Value Reference Range Comments MAGNESIUM (BEAKER) (test rupj=870) 1.6 mg/dL 1.6-2.6 BASIC METABOLIC [id number] 08:05:00 Test Item Value Reference Range Comments SODIUM (BEAKER) (test 140 meq/L 136-145 qrhb=005) POTASSIUM (BEAKER) (test 3.7 meq/L 3.5-5.1 qgow=885) CHLORIDE (BEAKER) (test 107 meq/L 98-107 wxxd=555) CO2 (BEAKER) (test 24 meq/L 22-29 lrxk=173) BLOOD UREA NITROGEN 19 mg/dL 7-21 (BEAKER) (test jriz=395) CREATININE (BEAKER) (test 1.23 mg/dL 0.57-1.25 gykt=366) GLUCOSE RANDOM (BEAKER) 96 mg/dL 70-105 (test obab=352) CALCIUM (BEAKER) (test 8.5 mg/dL 8.4-10.2 wyjq=193) EGFR (BEAKER) (test 59 mL/min/1.73 sq m ESTIMATED GFR IS NOT ohwp=3346) ACCURATE CREATININE CLEARANCE IN PREDICTING GLOMERULAR FILTRATION RATE. ESTIMATED GFR IS NOT APPLICABLE FOR DIALYSIS PATIENTS. CALCIUM, [id number] 06:38:00 Test Item Value Reference Range Comments CALCIUM IONIZED (BEAKER) (test xskl=518) 1.07 mmol/L 1.12-1.27 PH, BLOOD (BEAKER) (test edii=4427) 7.31 CBC W/PLT COUNT & AUTO [id number] 14:53:00 Test Item Value Reference Range Comments WHITE BLOOD CELL COUNT (BEAKER) (test bzoa=489) 21.8 K/ L 3.5-10.5 RED BLOOD CELL COUNT (BEAKER) (test ifjs=654) 2.17 M/ L 3.93-5.22 HEMOGLOBIN (BEAKER) (test fyzt=978) 6.8 GM/DL 11.2-15.7 HEMATOCRIT (BEAKER) (test ppqh=671) 21.3 % 34.1-44.9 MEAN CORPUSCULAR VOLUME (BEAKER) (test kekd=667) 98.2 fL 79.4-94.8 MEAN CORPUSCULAR HEMOGLOBIN (BEAKER) (test 31.3 pg 25.6-32.2 kywr=805) MEAN CORPUSCULAR HEMOGLOBIN CONC (BEAKER) (test 31.9 GM/DL 32.2-35.5 iunk=978) RED CELL DISTRIBUTION WIDTH (BEAKER) (test 27.6 % 11.7-14.4 nlsh=767) PLATELET COUNT (BEAKER) (test bgtb=739) 244 K/CU MM 150-450 MEAN PLATELET VOLUME (BEAKER) (test zuex=018) 11.4 fL 9.4-12.3 NUCLEATED RED BLOOD CELLS (BEAKER) (test 80 /100 WBC 0-0 boat=775) NEUTROPHILS RELATIVE PERCENT (BEAKER) (test 82 % sjot=045) LYMPHOCYTES RELATIVE PERCENT (BEAKER) (test 7 % qklz=453) MONOCYTES RELATIVE PERCENT (BEAKER) (test 10 % vqes=600) EOSINOPHILS RELATIVE PERCENT (BEAKER) (test 0 % jcrp=147) BASOPHILS RELATIVE PERCENT (BEAKER) (test 0 % ggls=410) NEUTROPHILS ABSOLUTE COUNT (BEAKER) (test 17.85 K/ L 1.56-6.13 cssz=113) LYMPHOCYTES ABSOLUTE COUNT (BEAKER) (test 1.60 K/ L 1.18-3.74 ojxe=118) MONOCYTES ABSOLUTE COUNT (BEAKER) (test 2.14 K/ L 0.24-0.36 cpki=197) EOSINOPHILS ABSOLUTE COUNT (BEAKER) (test 0.03 K/ L 0.04-0.36 nbaw=336) BASOPHILS ABSOLUTE COUNT (BEAKER) (test 0.03 K/ L 0.01-0.08 ceeh=869) IMMATURE GRANULOCYTES-RELATIVE PERCENT (BEAKER) 1 % 0-1 (test rbbe=7696) (MANUAL DIFFERENTIAL)2017-11-10 14:53:00 Test Item Value Reference Range Comments TOTAL COUNTED (BEAKER) (test ygbl=3276) WBC MORPHOLOGY (BEAKER) (test xhwu=141) Normal LARGE PLT(BEAKER) (test buwc=0095) Present SCHISTOCYTES (BEAKER) (test rhmh=895) 1+ few ACANTHOCYTES (BEAKER) (test qoms=543) 1+ few ANISOCYTOSIS (BEAKER) (test grxa=361) 2+ moderate HYPOCHROMIA (BEAKER) (test rfmu=518) 2+ moderate MACROCYTES (BEAKER) (test exhg=999) 3+ many MICROCYTES (BEAKER) (test lzaj=104) 2+ moderate OVALOCYTES (BEAKER) (test tckn=509) 1+ few POIKILOCYTES (BEAKER) (test ocxi=542) 3+ many POLYCHROMATOPHILLIC RBCS(BEAKER) (test gdqo=201) 2+ moderate SICKLE CELLS (BEAKER) (test dnil=996) 2+ moderate TARGET CELLS (BEAKER) (test yetk=640) 1+ few BASIC METABOLIC [id number] 08:54:00 Test Item Value Reference Range Comments SODIUM (BEAKER) (test 140 meq/L 136-145 awqe=805) POTASSIUM (BEAKER) (test 4.0 meq/L 3.5-5.1 obxn=359) CHLORIDE (BEAKER) (test 109 meq/L 98-107 szot=242) CO2 (BEAKER) (test 19 meq/L 22-29 bsgi=837) BLOOD UREA NITROGEN 21 mg/dL 7-21 (BEAKER) (test izoe=119) CREATININE (BEAKER) (test 1.27 mg/dL 0.57-1.25 kmgu=865) GLUCOSE RANDOM (BEAKER) 122 mg/dL 70-105 (test zgcp=816) CALCIUM (BEAKER) (test 8.6 mg/dL 8.4-10.2 wzau=010) EGFR (BEAKER) (test 57 mL/min/1.73 sq m ESTIMATED GFR IS NOT ncjh=9293) ACCURATE CREATININE CLEARANCE IN PREDICTING GLOMERULAR FILTRATION RATE. ESTIMATED GFR IS NOT APPLICABLE FOR DIALYSIS PATIENTS. [id number] 08:54:00 Test Item Value Reference Range Comments MAGNESIUM (BEAKER) (test moxi=364) 1.5 mg/dL 1.6-2.6 [id number] 08:54:00 Test Item Value Reference Range Comments PHOSPHORUS (BEAKER) (test rhhd=090) 4.5 mg/dL 2.3-4.7 COMPREHENSIVE METABOLIC [id number] 08:54:00 Test Item Value Reference Range Comments TOTAL PROTEIN (BEAKER) 8.2 gm/dL 6.0-8.3 (test cdrx=390) ALBUMIN (BEAKER) (test 3.1 g/dL 3.5-5.0 yrss=1947) ALKALINE PHOSPHATASE 154 U/L 40-150 (BEAKER) (test bdou=715) BILIRUBIN TOTAL (BEAKER) 1.4 mg/dL 0.2-1.2 (test pidp=467) SODIUM (BEAKER) (test 140 meq/L 136-145 xvcw=000) POTASSIUM (BEAKER) (test 4.0 meq/L 3.5-5.1 ngsg=016) CHLORIDE (BEAKER) (test 109 meq/L 98-107 hday=267) CO2 (BEAKER) (test 19 meq/L 22-29 cdru=164) BLOOD UREA NITROGEN 21 mg/dL 7-21 (BEAKER) (test alic=823) CREATININE (BEAKER) (test 1.27 mg/dL 0.57-1.25 kinh=372) GLUCOSE RANDOM (BEAKER) 122 mg/dL 70-105 (test nata=195) CALCIUM (BEAKER) (test 8.6 mg/dL 8.4-10.2 dqpf=217) AST (SGOT) (BEAKER) (test 72 U/L 5-34 kqsy=130) ALT (SGPT) (BEAKER) (test 50 U/L 6-55 jxeq=796) EGFR (BEAKER) (test 57 mL/min/1.73 sq m ESTIMATED GFR IS NOT qlpc=6169) ACCURATE CREATININE CLEARANCE IN PREDICTING GLOMERULAR FILTRATION RATE. ESTIMATED GFR IS NOT APPLICABLE FOR DIALYSIS PATIENTS. CALCIUM, [id number] 07:21:00 Test Item Value Reference Range Comments CALCIUM IONIZED (BEAKER) (test pyzg=854) 1.04 mmol/L 1.12-1.27 PH, BLOOD (BEAKER) (test ripz=3681) 7.39 CBC W/PLT COUNT & AUTO [id number] 12:10:00 Test Item Value Reference Range Comments WHITE BLOOD CELL COUNT (BEAKER) (test vvrk=084) 20.8 K/ L 3.5-10.5 RED BLOOD CELL COUNT (BEAKER) (test doxh=713) 2.11 M/ L 3.93-5.22 HEMOGLOBIN (BEAKER) (test jwjn=040) 6.6 GM/DL 11.2-15.7 HEMATOCRIT (BEAKER) (test gbxb=853) 20.4 % 34.1-44.9 MEAN CORPUSCULAR VOLUME (BEAKER) (test gfcb=243) 96.7 fL 79.4-94.8 MEAN CORPUSCULAR HEMOGLOBIN (BEAKER) (test 31.3 pg 25.6-32.2 tpno=594) MEAN CORPUSCULAR HEMOGLOBIN CONC (BEAKER) (test 32.4 GM/DL 32.2-35.5 tllv=414) RED CELL DISTRIBUTION WIDTH (BEAKER) (test 27.2 % 11.7-14.4 jtob=158) PLATELET COUNT (BEAKER) (test phgu=871) 237 K/CU MM 150-450 MEAN PLATELET VOLUME (BEAKER) (test jjcn=522) 10.7 fL 9.4-12.3 NUCLEATED RED BLOOD CELLS (BEAKER) (test 98 /100 WBC 0-0 joss=848) NEUTROPHILS RELATIVE PERCENT (BEAKER) (test 82 % xmzi=016) LYMPHOCYTES RELATIVE PERCENT (BEAKER) (test 6 % hftg=671) MONOCYTES RELATIVE PERCENT (BEAKER) (test 11 % eahp=730) EOSINOPHILS RELATIVE PERCENT (BEAKER) (test 0 % twjf=141) BASOPHILS RELATIVE PERCENT (BEAKER) (test 0 % xomt=079) NEUTROPHILS ABSOLUTE COUNT (BEAKER) (test 16.91 K/ L 1.56-6.13 ispq=066) LYMPHOCYTES ABSOLUTE COUNT (BEAKER) (test 1.31 K/ L 1.18-3.74 qaix=524) MONOCYTES ABSOLUTE COUNT (BEAKER) (test 2.37 K/ L 0.24-0.36 ohkt=373) EOSINOPHILS ABSOLUTE COUNT (BEAKER) (test 0.01 K/ L 0.04-0.36 gype=264) BASOPHILS ABSOLUTE COUNT (BEAKER) (test 0.05 K/ L 0.01-0.08 iypl=506) IMMATURE GRANULOCYTES-RELATIVE PERCENT (BEAKER) 1 % 0-1 (test xrqr=9388) (MANUAL DIFFERENTIAL)2017-11-09 12:10:00 Test Item Value Reference Range Comments TOTAL COUNTED (BEAKER) (test bwxt=4858) WBC MORPHOLOGY (BEAKER) (test pumg=593) Normal PLT MORPHOLOGY (BEAKER) (test qlst=653) Normal ANISOCYTOSIS (BEAKER) (test qojo=664) 2+ moderate MATTHEWS-JOLLY BODIES (BEAKER) (test jtik=542) 1+ few POIKILOCYTES (BEAKER) (test uris=925) 2+ moderate POLYCHROMATOPHILLIC RBCS(BEAKER) (test ujbc=303) 1+ few SICKLE CELLS (BEAKER) (test wucb=477) 2+ moderate TARGET CELLS (BEAKER) (test hhfx=421) 1+ few CALCIUM, [id number] 07:44:00 Test Item Value Reference Range Comments CALCIUM IONIZED (BEAKER) (test wjsc=069) 1.16 mmol/L 1.12-1.27 PH, BLOOD (BEAKER) (test rhdy=7658) 7.25 B-TYPE NATRIURETIC FACTOR (BNP)2017-11-09 07:43:00 Test Item Value Reference Range Comments B-TYPE NATRIURETIC PEPTIDE (BEAKER) (test 903 pg/mL 0-100 sxyi=799) [id number] 07:27:00 Test Item Value Reference Range Comments PHOSPHORUS (BEAKER) (test dksp=865) 4.4 mg/dL 2.3-4.7 [id number] 07:27:00 Test Item Value Reference Range Comments MAGNESIUM (BEAKER) (test pnre=430) 1.7 mg/dL 1.6-2.6 COMPREHENSIVE METABOLIC [id number] 07:27:00 Test Item Value Reference Range Comments TOTAL PROTEIN (BEAKER) 7.8 gm/dL 6.0-8.3 (test baiw=962) ALBUMIN (BEAKER) (test 3.2 g/dL 3.5-5.0 pilf=3109) ALKALINE PHOSPHATASE 165 U/L 40-150 (BEAKER) (test nxvk=636) BILIRUBIN TOTAL (BEAKER) 1.3 mg/dL 0.2-1.2 (test qgru=173) SODIUM (BEAKER) (test 143 meq/L 136-145 ympa=150) POTASSIUM (BEAKER) (test 4.2 meq/L 3.5-5.1 inva=909) CHLORIDE (BEAKER) (test 112 meq/L 98-107 rpdr=943) CO2 (BEAKER) (test 23 meq/L 22-29 ahxc=019) BLOOD UREA NITROGEN 29 mg/dL 7-21 (BEAKER) (test hvxf=134) CREATININE (BEAKER) (test 1.54 mg/dL 0.57-1.25 vjxt=431) GLUCOSE RANDOM (BEAKER) 108 mg/dL 70-105 (test xpne=858) CALCIUM (BEAKER) (test 9.1 mg/dL 8.4-10.2 mgwg=175) AST (SGOT) (BEAKER) (test 110 U/L 5-34 tvxb=257) ALT (SGPT) (BEAKER) (test 64 U/L 6-55 pepg=273) EGFR (BEAKER) (test 46 mL/min/1.73 sq m ESTIMATED GFR IS NOT llqi=6984) ACCURATE CREATININE CLEARANCE IN PREDICTING GLOMERULAR FILTRATION RATE. ESTIMATED GFR IS NOT APPLICABLE FOR DIALYSIS PATIENTS. BASIC METABOLIC [id number] 07:27:00 Test Item Value Reference Range Comments SODIUM (BEAKER) (test 143 meq/L 136-145 mbef=665) POTASSIUM (BEAKER) (test 4.2 meq/L 3.5-5.1 flqb=002) CHLORIDE (BEAKER) (test 112 meq/L 98-107 zxni=376) CO2 (BEAKER) (test 23 meq/L 22-29 gixd=160) BLOOD UREA NITROGEN 29 mg/dL 7-21 (BEAKER) (test xgvv=531) CREATININE (BEAKER) (test 1.54 mg/dL 0.57-1.25 pvme=239) GLUCOSE RANDOM (BEAKER) 108 mg/dL 70-105 (test gdlc=098) CALCIUM (BEAKER) (test 9.1 mg/dL 8.4-10.2 dnzb=985) EGFR (BEAKER) (test 46 mL/min/1.73 sq m ESTIMATED GFR IS NOT qjkf=5262) ACCURATE CREATININE CLEARANCE IN PREDICTING GLOMERULAR FILTRATION RATE. ESTIMATED GFR IS NOT APPLICABLE FOR DIALYSIS PATIENTS. RAD, CHEST, 1 VIEW, NON [id number] 20:41:00Reason for exam:->edemaShould this be performed at [...] MDReport Verified Date/Time: 11/08/2017 20:41:24 Reading Location: [address] Reading Room Electronically signed by: CLIFF SALCIDO M.D. on 08:41 PMEOSINOPHIL SMEAR, [id number] 12:49:00 Test Item Value Reference Range Comments EOSINOPHIL SMEAR, URINE (BEAKER) (test No EOS seen No EOS seen ixgn=8810) CBC W/PLT COUNT & AUTO [id number] 10:40:00 Test Item Value Reference Range Comments WHITE BLOOD CELL COUNT (BEAKER) (test iagd=558) 18.6 K/ L 3.5-10.5 RED BLOOD CELL COUNT (BEAKER) (test dgsl=796) 2.21 M/ L 3.93-5.22 HEMOGLOBIN (BEAKER) (test wkbl=939) 6.8 GM/DL 11.2-15.7 HEMATOCRIT (BEAKER) (test zoyw=702) 20.6 % 34.1-44.9 MEAN CORPUSCULAR VOLUME (BEAKER) (test tkcw=248) 93.2 fL 79.4-94.8 MEAN CORPUSCULAR HEMOGLOBIN (BEAKER) (test 30.8 pg 25.6-32.2 otwc=694) MEAN CORPUSCULAR HEMOGLOBIN CONC (BEAKER) (test 33.0 GM/DL 32.2-35.5 zzwh=537) RED CELL DISTRIBUTION WIDTH (BEAKER) (test 25.5 % 11.7-14.4 wrhz=965) PLATELET COUNT (BEAKER) (test eqqy=280) 255 K/CU MM 150-450 MEAN PLATELET VOLUME (BEAKER) (test echw=854) 10.6 fL 9.4-12.3 NUCLEATED RED BLOOD CELLS (BEAKER) (test 87 /100 WBC 0-0 gfig=929) NEUTROPHILS RELATIVE PERCENT (BEAKER) (test 70 % fnsq=293) LYMPHOCYTES RELATIVE PERCENT (BEAKER) (test 14 % xsmz=334) MONOCYTES RELATIVE PERCENT (BEAKER) (test 14 % lghd=439) EOSINOPHILS RELATIVE PERCENT (BEAKER) (test 0 % fcrh=233) BASOPHILS RELATIVE PERCENT (BEAKER) (test 0 % mimi=174) NEUTROPHILS ABSOLUTE COUNT (BEAKER) (test 12.98 K/ L 1.56-6.13 vhjc=961) LYMPHOCYTES ABSOLUTE COUNT (BEAKER) (test 2.67 K/ L 1.18-3.74 tnpy=608) MONOCYTES ABSOLUTE COUNT (BEAKER) (test 2.65 K/ L 0.24-0.36 eavk=105) EOSINOPHILS ABSOLUTE COUNT (BEAKER) (test 0.07 K/ L 0.04-0.36 puie=475) BASOPHILS ABSOLUTE COUNT (BEAKER) (test 0.05 K/ L 0.01-0.08 xwoc=733) IMMATURE GRANULOCYTES-RELATIVE PERCENT (BEAKER) 1 % 0-1 (test mqyw=2264) (MANUAL DIFFERENTIAL)2017-11-08 10:40:00 Test Item Value Reference Range Comments TOTAL COUNTED (BEAKER) (test pcqa=8178) WBC MORPHOLOGY (BEAKER) (test fpii=899) Normal LARGE PLT(BEAKER) (test suym=2021) Present POLYCHROMATOPHILLIC RBCS(BEAKER) (test rlwd=964) 2+ moderate SICKLE CELLS (BEAKER) (test odnn=195) 3+ many TARGET CELLS (BEAKER) (test qwyi=261) 1+ few CT, [id number] 08:29:00FINAL REPORT HISTORY : Abdominal pain, unspecified [...] MDReport Verified Date/Time: 11/08/2017 08:29:54 Reading Location: [facility] Reading Room - [place] [id number] Electronically signed by: DAMI QUICK M.D. on11/08/2017 08:29 AMBASIC METABOLIC [id number] 08:14:00 Test Item Value Reference Range Comments SODIUM (BEAKER) (test 141 meq/L 136-145 cngb=790) POTASSIUM (BEAKER) (test 4.4 meq/L 3.5-5.1 tfhq=727) CHLORIDE (BEAKER) (test 111 meq/L 98-107 llsk=940) CO2 (BEAKER) (test 17 meq/L 22-29 kwoe=721) BLOOD UREA NITROGEN 37 mg/dL 7-21 (BEAKER) (test wohk=588) CREATININE (BEAKER) (test 2.07 mg/dL 0.57-1.25 rvse=684) GLUCOSE RANDOM (BEAKER) 101 mg/dL 70-105 (test izgb=816) CALCIUM (BEAKER) (test 8.9 mg/dL 8.4-10.2 jmgy=742) EGFR (BEAKER) (test 32 mL/min/1.73 sq m ESTIMATED GFR IS NOT wssf=3508) ACCURATE CREATININE CLEARANCE IN PREDICTING GLOMERULAR FILTRATION RATE. ESTIMATED GFR IS NOT APPLICABLE FOR DIALYSIS PATIENTS. COMPREHENSIVE METABOLIC [id number] 08:14:00 Test Item Value Reference Range Comments TOTAL PROTEIN (BEAKER) 8.6 gm/dL 6.0-8.3 (test dptr=040) ALBUMIN (BEAKER) (test 3.4 g/dL 3.5-5.0 gesh=7706) ALKALINE PHOSPHATASE 155 U/L 40-150 (BEAKER) (test rdhw=186) BILIRUBIN TOTAL (BEAKER) 1.7 mg/dL 0.2-1.2 (test yqch=605) SODIUM (BEAKER) (test 141 meq/L 136-145 hipy=487) POTASSIUM (BEAKER) (test 4.4 meq/L 3.5-5.1 omxv=941) CHLORIDE (BEAKER) (test 111 meq/L 98-107 plyx=011) CO2 (BEAKER) (test 17 meq/L 22-29 bfrl=087) BLOOD UREA NITROGEN 37 mg/dL 7-21 (BEAKER) (test qjbw=199) CREATININE (BEAKER) (test 2.07 mg/dL 0.57-1.25 lugb=339) GLUCOSE RANDOM (BEAKER) 101 mg/dL 70-105 (test zsrb=114) CALCIUM (BEAKER) (test 8.9 mg/dL 8.4-10.2 qnwo=759) AST (SGOT) (BEAKER) (test 144 U/L 5-34 dfyn=929) ALT (SGPT) (BEAKER) (test 70 U/L 6-55 bvur=668) EGFR (BEAKER) (test 32 mL/min/1.73 sq m ESTIMATED GFR IS NOT ussm=1937) ACCURATE CREATININE CLEARANCE IN PREDICTING GLOMERULAR FILTRATION RATE. ESTIMATED GFR IS NOT APPLICABLE FOR DIALYSIS PATIENTS. PROTEIN, RANDOM [id number] 07:49:00 Test Item Value Reference Range Comments PROTEIN, URINE (BEAKER) (test iwpa=5580) 24 mg/dL 0-14 CREATININE, RANDOM [id number] 07:47:00 Test Item Value Reference Range Comments CREATININE URINE (BEAKER) (test umwd=505) 46.0 mg/dL Reference Range: No NormalsSODIUM, RANDOM [id number] 07:47:00 Test Item Value Reference Range Comments SODIUM URINE (BEAKER) (test xouo=372) 65 meq/L Reference Range: No NormalsU/S, ABDOMINAL, [id number] 19:58:00Reason for exam:->GRAYSON, abdominal painShould this be [...] [place] Verified Date/Time: 11/07/2017 19:58:17 Reading Location: [address] Consult Reading Room LACTIC ACID, VENOUS, WHOLE [id number] 16:11:00 Test Item Value Reference Range Comments LACTATE BLOOD VENOUS (2) 0.9 mmol/L 0.5-2.2 Specimen slightly hemolyzed (BEAKER) (test hgip=0029) Effective 12/22/2015: Units/Reference Range ChangeNew: 0.5-2.2 mmol/L Previous: 5 -20 mg/dLCBC W/PLT COUNT & AUTO [id number] 10:20:00 Test Item Value Reference Range Comments WHITE BLOOD CELL COUNT (BEAKER) (test rxny=467) 23.2 K/ L 3.5-10.5 RED BLOOD CELL COUNT (BEAKER) (test ixct=143) 1.84 M/ L 3.93-5.22 HEMOGLOBIN (BEAKER) (test eeei=360) 5.8 GM/DL 11.2-15.7 HEMATOCRIT (BEAKER) (test odde=546) 17.3 % 34.1-44.9 MEAN CORPUSCULAR VOLUME (BEAKER) (test bjst=168) 94.0 fL 79.4-94.8 MEAN CORPUSCULAR HEMOGLOBIN (BEAKER) (test 31.5 pg 25.6-32.2 mmss=843) MEAN CORPUSCULAR HEMOGLOBIN CONC (BEAKER) (test 33.5 GM/DL 32.2-35.5 qhlr=404) RED CELL DISTRIBUTION WIDTH (BEAKER) (test 24.1 % 11.7-14.4 xlvb=495) PLATELET COUNT (BEAKER) (test ntgs=937) 249 K/CU MM 150-450 MEAN PLATELET VOLUME (BEAKER) (test odde=059) 10.8 fL 9.4-12.3 NUCLEATED RED BLOOD CELLS (BEAKER) (test 48 /100 WBC 0-0 ynvl=055) IMMATURE GRANULOCYTES-RELATIVE PERCENT (BEAKER) 2 % 0-1 (test lfte=1363) (MANUAL DIFFERENTIAL)2017-11-07 10:20:00 Test Item Value Reference Range Comments NEUTROPHILS - REL (DIFF) (BEAKER) (test 68 % ychd=4402) LYMPHOCYTES - REL (DIFF) (BEAKER) (test 27 % tydj=0899) MONOCYTES - REL (DIFF) (BEAKER) (test oyvb=0941) 5 % EOSINOPHILS - REL (DIFF) (BEAKER) (test 0 % emdb=4727) BASOPHILS - REL (DIFF) (BEAKER) (test nvut=8114) 0 % NEUTROPHILS - ABS (DIFF) (BEAKER) (test 15.78 K/ L 1.80-8.00 psxq=3813) LYMPHOCYTES - ABS (DIFF) (BEAKER) (test 6.26 K/ L 1.48-4.50 ezre=0959) MONOCYTES - ABS (DIFF) (BEAKER) (test rxtf=6200) 1.16 K/ L 0.00-1.30 EOSINOPHILS - ABS (DIFF) (BEAKER) (test 0.00 K/ L 0.00-0.50 grlw=6589) BASOPHILS - ABS (DIFF) (BEAKER) (test cqdo=8500) 0.00 K/ L 0.00-0.20 TOTAL COUNTED (BEAKER) (test xffx=8897) 100 MANUAL NRBC PER 100 CELLS (BEAKER) (test 51 /100 WBC 0-0 mofq=3699) WBC MORPHOLOGY (BEAKER) (test vehb=513) Normal PLT MORPHOLOGY (BEAKER) (test dqeo=703) Normal ANISOCYTOSIS (BEAKER) (test juty=014) 3+ many POLYCHROMATOPHILLIC RBCS(BEAKER) (test pihx=390) 2+ moderate SICKLE CELLS (BEAKER) (test fgsz=471) 3+ many TARGET CELLS (BEAKER) (test aatf=333) 1+ few BASIC METABOLIC [id number] 06:28:00 Test Item Value Reference Range Comments SODIUM (BEAKER) (test 132 meq/L 136-145 lymp=916) POTASSIUM (BEAKER) (test 4.4 meq/L 3.5-5.1 crxq=380) CHLORIDE (BEAKER) (test 109 meq/L 98-107 vjee=220) CO2 (BEAKER) (test 20 meq/L 22-29 ghsw=785) BLOOD UREA NITROGEN 39 mg/dL 7-21 (BEAKER) (test ertn=866) CREATININE (BEAKER) (test 2.20 mg/dL 0.57-1.25 upyl=079) GLUCOSE RANDOM (BEAKER) 123 mg/dL 70-105 (test ubeg=941) CALCIUM (BEAKER) (test 8.7 mg/dL 8.4-10.2 hoyw=615) EGFR (BEAKER) (test 30 mL/min/1.73 sq m ESTIMATED GFR IS NOT teof=9225) ACCURATE CREATININE CLEARANCE IN PREDICTING GLOMERULAR FILTRATION RATE. ESTIMATED GFR IS NOT APPLICABLE FOR DIALYSIS PATIENTS. COMPREHENSIVE METABOLIC [id number] 18:37:00 Test Item Value Reference Range Comments TOTAL PROTEIN (BEAKER) 8.5 gm/dL 6.0-8.3 (test rxtp=337) ALBUMIN (BEAKER) (test 3.4 g/dL 3.5-5.0 uubh=9181) ALKALINE PHOSPHATASE 166 U/L 40-150 (BEAKER) (test omqs=295) BILIRUBIN TOTAL (BEAKER) 4.0 mg/dL 0.2-1.2 (test nouk=900) SODIUM (BEAKER) (test 142 meq/L 136-145 fnsd=294) POTASSIUM (BEAKER) (test 4.7 meq/L 3.5-5.1 anre=500) CHLORIDE (BEAKER) (test 110 meq/L 98-107 ducx=352) CO2 (BEAKER) (test 22 meq/L 22-29 nijs=421) BLOOD UREA NITROGEN 35 mg/dL 7-21 (BEAKER) (test hwkf=837) CREATININE (BEAKER) (test 1.97 mg/dL 0.57-1.25 sokl=748) GLUCOSE RANDOM (BEAKER) 119 mg/dL 70-105 (test zaeq=972) CALCIUM (BEAKER) (test 8.5 mg/dL 8.4-10.2 jxmd=258) AST (SGOT) (BEAKER) (test 278 U/L 5-34 rpbo=947) ALT (SGPT) (BEAKER) (test 92 U/L 6-55 frcx=595) EGFR (BEAKER) (test 34 mL/min/1.73 sq m ESTIMATED GFR IS NOT efgk=3560) ACCURATE CREATININE CLEARANCE IN PREDICTING GLOMERULAR FILTRATION RATE. ESTIMATED GFR IS NOT APPLICABLE FOR DIALYSIS PATIENTS. Specimen slightly ictericCBC W/PLT COUNT & AUTO [id number] 14:59 :00 Test Item Value Reference Range Comments WHITE BLOOD CELL COUNT (BEAKER) (test xlel=465) 24.3 K/ L 3.5-10.5 RED BLOOD CELL COUNT (BEAKER) (test vtip=825) 1.73 M/ L 3.93-5.22 HEMOGLOBIN (BEAKER) (test zzmb=462) 5.5 GM/DL 11.2-15.7 HEMATOCRIT (BEAKER) (test edhz=263) 16.7 % 34.1-44.9 MEAN CORPUSCULAR VOLUME (BEAKER) (test xupl=107) 96.5 fL 79.4-94.8 MEAN CORPUSCULAR HEMOGLOBIN (BEAKER) (test 31.8 pg 25.6-32.2 qlev=782) MEAN CORPUSCULAR HEMOGLOBIN CONC (BEAKER) (test 32.9 GM/DL 32.2-35.5 oabs=411) RED CELL DISTRIBUTION WIDTH (BEAKER) (test 25.8 % 11.7-14.4 edxy=594) PLATELET COUNT (BEAKER) (test ezsb=009) 259 K/CU MM 150-450 MEAN PLATELET VOLUME (BEAKER) (test kspj=929) 11.1 fL 9.4-12.3 NUCLEATED RED BLOOD CELLS (BEAKER) (test 29 /100 WBC 0-0 klov=397) IMMATURE GRANULOCYTES-RELATIVE PERCENT (BEAKER) 2 % 0-1 (test sady=1586) (MANUAL DIFFERENTIAL)2017-11-06 14:59:00 Test Item Value Reference Range Comments NEUTROPHILS - REL (DIFF) (BEAKER) (test 65 % rspe=8034) LYMPHOCYTES - REL (DIFF) (BEAKER) (test 26 % ddzd=1494) MONOCYTES - REL (DIFF) (BEAKER) (test lwqh=9796) 8 % MYELOCYTES-REL (DIFF) (BEAKER) (test omfa=5834) 1 % 0-0 NEUTROPHILS - ABS (DIFF) (BEAKER) (test 15.80 K/ L 1.80-8.00 shws=2236) LYMPHOCYTES - ABS (DIFF) (BEAKER) (test 6.32 K/ L 1.48-4.50 ydlc=7300) MONOCYTES - ABS (DIFF) (BEAKER) (test omsc=9294) 1.94 K/ L 0.00-1.30 MYELOCYTES-ABS (DIFF) (BEAKER) (test ceyl=3782) 0.24 K/ L 0.00-0.00 TOTAL COUNTED (BEAKER) (test nebk=3489) 100 MANUAL NRBC PER 100 CELLS (BEAKER) (test 34 /100 WBC 0-0 afgi=7827) WBC MORPHOLOGY (BEAKER) (test aaml=275) Normal PLT MORPHOLOGY (BEAKER) (test ikww=854) Normal ANISOCYTOSIS (BEAKER) (test kmkf=718) 3+ many MATTHEWS-JOLLY BODIES (BEAKER) (test fivd=820) Present POIKILOCYTES (BEAKER) (test eeof=907) 1+ few POLYCHROMATOPHILLIC RBCS(BEAKER) (test totd=805) 2+ moderate SICKLE CELLS (BEAKER) (test bauw=549) 3+ many BASIC METABOLIC [id number] 09:37:00 Test Item Value Reference Range Comments SODIUM (BEAKER) (test 139 meq/L 136-145 ycxl=135) POTASSIUM (BEAKER) (test 4.5 meq/L 3.5-5.1 zaau=300) CHLORIDE (BEAKER) (test 107 meq/L 98-107 gnkm=501) CO2 (BEAKER) (test 19 meq/L 22-29 adev=365) BLOOD UREA NITROGEN 27 mg/dL 7-21 (BEAKER) (test abrb=522) CREATININE (BEAKER) (test 1.37 mg/dL 0.57-1.25 npvc=272) GLUCOSE RANDOM (BEAKER) 124 mg/dL 70-105 (test cuma=517) CALCIUM (BEAKER) (test 8.2 mg/dL 8.4-10.2 gppn=625) EGFR (BEAKER) (test 52 mL/min/1.73 sq m ESTIMATED GFR IS NOT etnm=0937) ACCURATE CREATININE CLEARANCE IN PREDICTING GLOMERULAR FILTRATION RATE. ESTIMATED GFR IS NOT APPLICABLE FOR DIALYSIS PATIENTS. Specimen slightly ictericURINALYSIS W/ [id number] 06:22:00 Test Item Value Reference Range Comments COLOR (BEAKER) (test ktpt=353) Brown CLARITY (BEAKER) (test eykd=383) Cloudy SPECIFIC GRAVITY UA (BEAKER) (test 1.015 1.001-1.035 bcth=704) PH UA (BEAKER) (test wazx=893) 5.5 5.0-8.0 PROTEIN UA (BEAKER) (test xacs=593) 100 mg/dL Negative GLUCOSE UA (BEAKER) (test qfti=165) Negative Negative KETONES UA (BEAKER) (test aqai=828) Negative Negative BILIRUBIN UA (BEAKER) (test yjcm=742) Positive Negative BLOOD UA (BEAKER) (test nlci=438) Large Negative NITRITE UA (BEAKER) (test tlea=566) Negative Negative LEUKOCYTE ESTERASE UA (BEAKER) (test Trace Negative pwoo=766) UROBILINOGEN UA (BEAKER) (test zqov=195) 4.0 mg/dL 0.2-1.0 RBC UA (BEAKER) (test zdqo=945) 0 /HPF WBC UA (BEAKER) (test fuhr=345) 27 /HPF MUCUS (BEAKER) (test elss=3893) Few SQUAMOUS EPITHELIAL (BEAKER) (test 11 /HPF zulk=028) SOURCE(BEAKER) (test iaji=3144) Urine, Clean Catch BASIC METABOLIC [id number] 10:56:00 Test Item Value Reference Range Comments SODIUM (BEAKER) (test 139 meq/L 136-145 twtr=841) POTASSIUM (BEAKER) (test 4.2 meq/L 3.5-5.1 xqbu=171) CHLORIDE (BEAKER) (test 104 meq/L 98-107 roug=051) CO2 (BEAKER) (test 23 meq/L 22-29 xscy=004) BLOOD UREA NITROGEN 9 mg/dL 7-21 (BEAKER) (test sito=543) CREATININE (BEAKER) (test 0.66 mg/dL 0.57-1.25 miuo=773) GLUCOSE RANDOM (BEAKER) 109 mg/dL 70-105 (test gajt=714) CALCIUM (BEAKER) (test 8.6 mg/dL 8.4-10.2 vreh=332) EGFR (BEAKER) (test 121 mL/min/1.73 sq m ESTIMATED GFR IS NOT nmcb=6503) ACCURATE CREATININE CLEARANCE IN PREDICTING GLOMERULAR FILTRATION RATE. ESTIMATED GFR IS NOT APPLICABLE FOR DIALYSIS PATIENTS. Specimen slightly ictericCBC W/PLT COUNT & AUTO [id number] 09:17 :00 Test Item Value Reference Range Comments WHITE BLOOD CELL COUNT (BEAKER) (test cnfi=719) 18.2 K/ L 3.5-10.5 RED BLOOD CELL COUNT (BEAKER) (test uedy=634) 2.05 M/ L 3.93-5.22 HEMOGLOBIN (BEAKER) (test blsp=121) 6.4 GM/DL 11.2-15.7 HEMATOCRIT (BEAKER) (test zrps=998) 19.9 % 34.1-44.9 MEAN CORPUSCULAR VOLUME (BEAKER) (test dcjk=911) 97.1 fL 79.4-94.8 MEAN CORPUSCULAR HEMOGLOBIN (BEAKER) (test 31.2 pg 25.6-32.2 vlke=215) MEAN CORPUSCULAR HEMOGLOBIN CONC (BEAKER) (test 32.2 GM/DL 32.2-35.5 wgqa=608) RED CELL DISTRIBUTION WIDTH (BEAKER) (test 25.4 % 11.7-14.4 aaej=970) PLATELET COUNT (BEAKER) (test lfir=292) 227 K/CU MM 150-450 MEAN PLATELET VOLUME (BEAKER) (test enth=434) 10.4 fL 9.4-12.3 NUCLEATED RED BLOOD CELLS (BEAKER) (test 18 /100 WBC 0-0 oemn=014) NEUTROPHILS RELATIVE PERCENT (BEAKER) (test 57 % stoh=137) LYMPHOCYTES RELATIVE PERCENT (BEAKER) (test 24 % hfzd=309) MONOCYTES RELATIVE PERCENT (BEAKER) (test 15 % mvad=364) EOSINOPHILS RELATIVE PERCENT (BEAKER) (test 3 % vrre=340) BASOPHILS RELATIVE PERCENT (BEAKER) (test 0 % yngu=642) NEUTROPHILS ABSOLUTE COUNT (BEAKER) (test 10.46 K/ L 1.56-6.13 znvu=704) LYMPHOCYTES ABSOLUTE COUNT (BEAKER) (test 4.31 K/ L 1.18-3.74 otbw=934) MONOCYTES ABSOLUTE COUNT (BEAKER) (test 2.72 K/ L 0.24-0.36 vnyn=330) EOSINOPHILS ABSOLUTE COUNT (BEAKER) (test 0.45 K/ L 0.04-0.36 hpsw=902) BASOPHILS ABSOLUTE COUNT (BEAKER) (test 0.07 K/ L 0.01-0.08 nmto=979) IMMATURE GRANULOCYTES-RELATIVE PERCENT (BEAKER) 1 % 0-1 (test tnya=3234) (MANUAL DIFFERENTIAL)2017-11-05 09:17:00 Test Item Value Reference Range Comments TOTAL COUNTED (BEAKER) (test ovvr=1666) WBC MORPHOLOGY (BEAKER) (test hdbt=633) Normal PLT MORPHOLOGY (BEAKER) (test dfxb=099) Normal ANISOCYTOSIS (BEAKER) (test yrdn=633) 2+ moderate POLYCHROMATOPHILLIC RBCS(BEAKER) (test coro=011) 2+ moderate SICKLE CELLS (BEAKER) (test lzja=259) 2+ moderate TARGET CELLS (BEAKER) (test pzhv=105) 2+ moderate CREATINE KINASE (CK), TOTAL AND [id number] 22:01:00 Test Item Value Reference Range Comments CREATINE KINASE TOTAL (BEAKER) (test 10 U/L 29-200 tosn=212) CREATINE KINASE-MB (BEAKER) (test 0.1 ng/mL 0.0-6.6 fvjn=393) CREATINE KINASE-MB INDEX (BEAKER) (test 1.0 % Unable to Calculate yasn=184) CK-MB Reference Range:<6.7 Normal6.7-10.0 Borderline>10.0 AbnormalTROPONIN [id number] 21:16:00 Test Item Value Reference Range Comments TROPONIN I (BEAKER) (test fuuz=653) < ng/mL 0.00-0.03 Troponin I (TnI) levels [...] and persistent tachyarrhythmia.CBC W/PLT COUNT & AUTO [id number] 06:49:00 Test Item Value Reference Range Comments WHITE BLOOD CELL COUNT (BEAKER) (test ixla=469) 13.3 K/ L 3.5-10.5 RED BLOOD CELL COUNT (BEAKER) (test vkke=045) 2.18 M/ L 3.93-5.22 HEMOGLOBIN (BEAKER) (test etqq=412) 6.8 GM/DL 11.2-15.7 HEMATOCRIT (BEAKER) (test okkv=177) 21.5 % 34.1-44.9 MEAN CORPUSCULAR VOLUME (BEAKER) (test ngmi=904) 98.6 fL 79.4-94.8 MEAN CORPUSCULAR HEMOGLOBIN (BEAKER) (test 31.2 pg 25.6-32.2 wupc=366) MEAN CORPUSCULAR HEMOGLOBIN CONC (BEAKER) (test 31.6 GM/DL 32.2-35.5 fqqi=121) RED CELL DISTRIBUTION WIDTH (BEAKER) (test 21.1 % 11.7-14.4 dibi=042) PLATELET COUNT (BEAKER) (test clro=719) 192 K/CU MM 150-450 MEAN PLATELET VOLUME (BEAKER) (test zelz=157) 11.4 fL 9.4-12.3 NUCLEATED RED BLOOD CELLS (BEAKER) (test 1 /100 WBC 0-0 jhnw=527) NEUTROPHILS RELATIVE PERCENT (BEAKER) (test 51 % dmwv=658) LYMPHOCYTES RELATIVE PERCENT (BEAKER) (test 30 % exjy=762) MONOCYTES RELATIVE PERCENT (BEAKER) (test 16 % zmqr=439) EOSINOPHILS RELATIVE PERCENT (BEAKER) (test 2 % ixdz=034) BASOPHILS RELATIVE PERCENT (BEAKER) (test 0 % andy=975) NEUTROPHILS ABSOLUTE COUNT (BEAKER) (test 6.84 K/ L 1.56-6.13 eucm=046) LYMPHOCYTES ABSOLUTE COUNT (BEAKER) (test 4.06 K/ L 1.18-3.74 pasi=672) MONOCYTES ABSOLUTE COUNT (BEAKER) (test 2.12 K/ L 0.24-0.36 ikwm=940) EOSINOPHILS ABSOLUTE COUNT (BEAKER) (test 0.26 K/ L 0.04-0.36 miib=055) BASOPHILS ABSOLUTE COUNT (BEAKER) (test 0.02 K/ L 0.01-0.08 gdyi=862) IMMATURE GRANULOCYTES-RELATIVE PERCENT (BEAKER) 0 % 0-1 (test djit=7474) BASIC METABOLIC [id number] 07:06:00 Test Item Value Reference Range Comments SODIUM (BEAKER) (test 138 meq/L 136-145 xmbw=310) POTASSIUM (BEAKER) (test 4.2 meq/L 3.5-5.1 dbiu=022) CHLORIDE (BEAKER) (test 103 meq/L 98-107 rwfj=611) CO2 (BEAKER) (test 28 meq/L 22-29 zfvn=527) BLOOD UREA NITROGEN 11 mg/dL 7-21 (BEAKER) (test vyvq=118) CREATININE (BEAKER) (test 0.55 mg/dL 0.57-1.25 axdq=063) GLUCOSE RANDOM (BEAKER) 95 mg/dL 70-105 (test mfgc=572) CALCIUM (BEAKER) (test 9.5 mg/dL 8.4-10.2 qleg=105) EGFR (BEAKER) (test 150 mL/min/1.73 sq m ESTIMATED GFR IS NOT thbo=6339) ACCURATE CREATININE CLEARANCE IN PREDICTING GLOMERULAR FILTRATION RATE. ESTIMATED GFR IS NOT APPLICABLE FOR DIALYSIS PATIENTS. CBC W/PLT COUNT & AUTO [id number] 06:48:00 Test Item Value Reference Range Comments WHITE BLOOD CELL COUNT (BEAKER) (test ydvm=354) 12.8 K/ L 3.5-10.5 RED BLOOD CELL COUNT (BEAKER) (test gheo=213) 2.22 M/ L 3.93-5.22 HEMOGLOBIN (BEAKER) (test dasp=253) 7.2 GM/DL 11.2-15.7 HEMATOCRIT (BEAKER) (test sziy=769) 21.9 % 34.1-44.9 MEAN CORPUSCULAR VOLUME (BEAKER) (test tdvy=358) 98.6 fL 79.4-94.8 MEAN CORPUSCULAR HEMOGLOBIN (BEAKER) (test 32.4 pg 25.6-32.2 jiva=956) MEAN CORPUSCULAR HEMOGLOBIN CONC (BEAKER) (test 32.9 GM/DL 32.2-35.5 tfwp=844) RED CELL DISTRIBUTION WIDTH (BEAKER) (test 21.2 % 11.7-14.4 wkot=439) PLATELET COUNT (BEAKER) (test wolu=408) 176 K/CU MM 150-450 MEAN PLATELET VOLUME (BEAKER) (test brzz=870) 11.2 fL 9.4-12.3 NUCLEATED RED BLOOD CELLS (BEAKER) (test 5 /100 WBC 0-0 dwxl=514) NEUTROPHILS RELATIVE PERCENT (BEAKER) (test 49 % fiou=617) LYMPHOCYTES RELATIVE PERCENT (BEAKER) (test 31 % ttcd=631) MONOCYTES RELATIVE PERCENT (BEAKER) (test 19 % tdde=322) EOSINOPHILS RELATIVE PERCENT (BEAKER) (test 2 % jkoq=067) BASOPHILS RELATIVE PERCENT (BEAKER) (test 0 % vmdd=585) NEUTROPHILS ABSOLUTE COUNT (BEAKER) (test 6.23 K/ L 1.56-6.13 pgbf=311) LYMPHOCYTES ABSOLUTE COUNT (BEAKER) (test 3.90 K/ L 1.18-3.74 tmtw=934) MONOCYTES ABSOLUTE COUNT (BEAKER) (test 2.37 K/ L 0.24-0.36 lgnh=265) EOSINOPHILS ABSOLUTE COUNT (BEAKER) (test 0.24 K/ L 0.04-0.36 npjn=580) BASOPHILS ABSOLUTE COUNT (BEAKER) (test 0.01 K/ L 0.01-0.08 cxkk=908) IMMATURE GRANULOCYTES-RELATIVE PERCENT (BEAKER) 0 % 0-1 (test ioke=8938) (MANUAL DIFFERENTIAL)2017-06-03 06:48:00 Test Item Value Reference Range Comments TOTAL COUNTED (BEAKER) (test vlbu=8503) WBC MORPHOLOGY (BEAKER) (test ynao=209) Normal PLT MORPHOLOGY (BEAKER) (test mmcc=703) Normal ANISOCYTOSIS (BEAKER) (test xspn=018) 3+ many MATTHEWS-JOLLY BODIES (BEAKER) (test vckf=784) Present MACROCYTES (BEAKER) (test unxi=567) 3+ many SICKLE CELLS (BEAKER) (test vdvb=637) 1+ few TARGET CELLS (BEAKER) (test hmug=493) 1+ few BASIC METABOLIC [id number] 07:33:00 Test Item Value Reference Range Comments SODIUM (BEAKER) (test 138 meq/L 136-145 zoxy=964) POTASSIUM (BEAKER) (test 4.5 meq/L 3.5-5.1 uprx=141) CHLORIDE (BEAKER) (test 102 meq/L 98-107 wxik=094) CO2 (BEAKER) (test 27 meq/L 22-29 zuph=074) BLOOD UREA NITROGEN 11 mg/dL 7-21 (BEAKER) (test dufg=882) CREATININE (BEAKER) (test 0.55 mg/dL 0.57-1.25 hxpz=855) GLUCOSE RANDOM (BEAKER) 85 mg/dL 70-105 (test khsx=779) CALCIUM (BEAKER) (test 9.5 mg/dL 8.4-10.2 svjp=962) EGFR (BEAKER) (test 150 mL/min/1.73 sq m ESTIMATED GFR IS NOT cxnz=6873) ACCURATE CREATININE CLEARANCE IN PREDICTING GLOMERULAR FILTRATION RATE. ESTIMATED GFR IS NOT APPLICABLE FOR DIALYSIS PATIENTS. CBC W/PLT COUNT & AUTO [id number] 07:13:00 Test Item Value Reference Range Comments WHITE BLOOD CELL COUNT (BEAKER) (test owpc=742) 14.2 K/ L 3.5-10.5 RED BLOOD CELL COUNT (BEAKER) (test bwac=254) 2.39 M/ L 3.93-5.22 HEMOGLOBIN (BEAKER) (test noud=470) 7.6 GM/DL 11.2-15.7 HEMATOCRIT (BEAKER) (test dkiy=593) 23.5 % 34.1-44.9 MEAN CORPUSCULAR VOLUME (BEAKER) (test kwvi=497) 98.3 fL 79.4-94.8 MEAN CORPUSCULAR HEMOGLOBIN (BEAKER) (test 31.8 pg 25.6-32.2 wjwy=224) MEAN CORPUSCULAR HEMOGLOBIN CONC (BEAKER) (test 32.3 GM/DL 32.2-35.5 lldr=781) RED CELL DISTRIBUTION WIDTH (BEAKER) (test 21.1 % 11.7-14.4 vrsq=995) PLATELET COUNT (BEAKER) (test dnuj=095) 173 K/CU MM 150-450 MEAN PLATELET VOLUME (BEAKER) (test itym=319) 11.7 fL 9.4-12.3 NUCLEATED RED BLOOD CELLS (BEAKER) (test 11 /100 WBC 0-0 etmk=242) NEUTROPHILS RELATIVE PERCENT (BEAKER) (test 53 % vffq=500) LYMPHOCYTES RELATIVE PERCENT (BEAKER) (test 27 % yygl=254) MONOCYTES RELATIVE PERCENT (BEAKER) (test 18 % ndhy=004) EOSINOPHILS RELATIVE PERCENT (BEAKER) (test 1 % rjfy=315) BASOPHILS RELATIVE PERCENT (BEAKER) (test 0 % myjc=989) NEUTROPHILS ABSOLUTE COUNT (BEAKER) (test 7.56 K/ L 1.56-6.13 clxz=826) LYMPHOCYTES ABSOLUTE COUNT (BEAKER) (test 3.89 K/ L 1.18-3.74 zapo=160) MONOCYTES ABSOLUTE COUNT (BEAKER) (test 2.52 K/ L 0.24-0.36 pknm=340) EOSINOPHILS ABSOLUTE COUNT (BEAKER) (test 0.20 K/ L 0.04-0.36 ekqx=821) BASOPHILS ABSOLUTE COUNT (BEAKER) (test 0.02 K/ L 0.01-0.08 wjno=613) IMMATURE GRANULOCYTES-RELATIVE PERCENT (BEAKER) 0 % 0-1 (test mgjz=5871) CBC W/PLT COUNT & AUTO [id number] 16:45:00 Test Item Value Reference Range Comments WHITE BLOOD CELL COUNT (BEAKER) (test nsby=993) 15.1 K/ L 3.5-10.5 RED BLOOD CELL COUNT (BEAKER) (test wmje=037) 2.36 M/ L 3.93-5.22 HEMOGLOBIN (BEAKER) (test ddvp=265) 7.5 GM/DL 11.2-15.7 HEMATOCRIT (BEAKER) (test dmjs=614) 23.0 % 34.1-44.9 MEAN CORPUSCULAR VOLUME (BEAKER) (test tpqc=755) 97.5 fL 79.4-94.8 MEAN CORPUSCULAR HEMOGLOBIN (BEAKER) (test 31.8 pg 25.6-32.2 snnl=158) MEAN CORPUSCULAR HEMOGLOBIN CONC (BEAKER) (test 32.6 GM/DL 32.2-35.5 gwho=977) RED CELL DISTRIBUTION WIDTH (BEAKER) (test 20.7 % 11.7-14.4 bekg=577) PLATELET COUNT (BEAKER) (test yuuv=698) 179 K/CU MM 150-450 MEAN PLATELET VOLUME (BEAKER) (test ynyl=531) 11.9 fL 9.4-12.3 NUCLEATED RED BLOOD CELLS (BEAKER) (test 12 /100 WBC 0-0 demi=889) NEUTROPHILS RELATIVE PERCENT (BEAKER) (test 53 % oten=436) LYMPHOCYTES RELATIVE PERCENT (BEAKER) (test 27 % fiob=551) MONOCYTES RELATIVE PERCENT (BEAKER) (test 18 % laqn=303) EOSINOPHILS RELATIVE PERCENT (BEAKER) (test 2 % ewig=536) BASOPHILS RELATIVE PERCENT (BEAKER) (test 0 % xdhj=708) NEUTROPHILS ABSOLUTE COUNT (BEAKER) (test 8.03 K/ L 1.56-6.13 vzak=885) LYMPHOCYTES ABSOLUTE COUNT (BEAKER) (test 3.99 K/ L 1.18-3.74 bcih=827) MONOCYTES ABSOLUTE COUNT (BEAKER) (test 2.65 K/ L 0.24-0.36 ariz=857) EOSINOPHILS ABSOLUTE COUNT (BEAKER) (test 0.31 K/ L 0.04-0.36 sbfo=020) BASOPHILS ABSOLUTE COUNT (BEAKER) (test 0.02 K/ L 0.01-0.08 aezk=943) IMMATURE GRANULOCYTES-RELATIVE PERCENT (BEAKER) 0 % 0-1 (test opji=8175) BASIC METABOLIC [id number] 06:17:00 Test Item Value Reference Range Comments SODIUM (BEAKER) (test 138 meq/L 136-145 qcwn=576) POTASSIUM (BEAKER) (test 4.1 meq/L 3.5-5.1 weev=229) CHLORIDE (BEAKER) (test 100 meq/L 98-107 rxal=322) CO2 (BEAKER) (test 30 meq/L 22-29 haex=015) BLOOD UREA NITROGEN 11 mg/dL 7-21 (BEAKER) (test bnpe=118) CREATININE (BEAKER) (test 0.58 mg/dL 0.57-1.25 hxhs=213) GLUCOSE RANDOM (BEAKER) 90 mg/dL 70-105 (test guko=020) CALCIUM (BEAKER) (test 9.4 mg/dL 8.4-10.2 hinl=569) EGFR (BEAKER) (test 141 mL/min/1.73 sq m ESTIMATED GFR IS NOT tktg=2622) ACCURATE CREATININE CLEARANCE IN PREDICTING GLOMERULAR FILTRATION RATE. ESTIMATED GFR IS NOT APPLICABLE FOR DIALYSIS PATIENTS. CBC W/PLT COUNT & AUTO [id number] 13:41:00 Test Item Value Reference Range Comments WHITE BLOOD CELL COUNT (BEAKER) (test dnph=025) 13.9 K/ L 3.5-10.5 RED BLOOD CELL COUNT (BEAKER) (test zjhx=162) 2.38 M/ L 3.93-5.22 HEMOGLOBIN (BEAKER) (test riqt=600) 7.5 GM/DL 11.2-15.7 HEMATOCRIT (BEAKER) (test jxia=899) 23.2 % 34.1-44.9 MEAN CORPUSCULAR VOLUME (BEAKER) (test tiit=389) 97.5 fL 79.4-94.8 MEAN CORPUSCULAR HEMOGLOBIN (BEAKER) (test 31.5 pg 25.6-32.2 ibfo=295) MEAN CORPUSCULAR HEMOGLOBIN CONC (BEAKER) (test 32.3 GM/DL 32.2-35.5 expd=594) RED CELL DISTRIBUTION WIDTH (BEAKER) (test 20.2 % 11.7-14.4 vwcm=983) PLATELET COUNT (BEAKER) (test gnxa=350) 171 K/CU MM 150-450 MEAN PLATELET VOLUME (BEAKER) (test yuor=197) 12.0 fL 9.4-12.3 NUCLEATED RED BLOOD CELLS (BEAKER) (test 8 /100 WBC 0-0 kqes=134) NEUTROPHILS RELATIVE PERCENT (BEAKER) (test 57 % kcel=498) LYMPHOCYTES RELATIVE PERCENT (BEAKER) (test 23 % dpbd=208) MONOCYTES RELATIVE PERCENT (BEAKER) (test 18 % evej=358) EOSINOPHILS RELATIVE PERCENT (BEAKER) (test 2 % xxxc=908) BASOPHILS RELATIVE PERCENT (BEAKER) (test 0 % bqsq=596) NEUTROPHILS ABSOLUTE COUNT (BEAKER) (test 7.89 K/ L 1.56-6.13 ogth=240) LYMPHOCYTES ABSOLUTE COUNT (BEAKER) (test 3.13 K/ L 1.18-3.74 xwcm=660) MONOCYTES ABSOLUTE COUNT (BEAKER) (test 2.52 K/ L 0.24-0.36 ppcx=566) EOSINOPHILS ABSOLUTE COUNT (BEAKER) (test 0.25 K/ L 0.04-0.36 isiz=883) BASOPHILS ABSOLUTE COUNT (BEAKER) (test 0.02 K/ L 0.01-0.08 mteg=514) IMMATURE GRANULOCYTES-RELATIVE PERCENT (BEAKER) 1 % 0-1 (test xcil=3177) (MANUAL DIFFERENTIAL)2017-05-31 13:41:00 Test Item Value Reference Range Comments TOTAL COUNTED (BEAKER) (test nrom=8560) WBC MORPHOLOGY (BEAKER) (test twte=931) Normal PLT MORPHOLOGY (BEAKER) (test bvxl=050) Normal POLYCHROMATOPHILLIC RBCS(BEAKER) (test fbyt=385) 2+ moderate SICKLE CELLS (BEAKER) (test zzum=810) 1+ few TARGET CELLS (BEAKER) (test hkkw=194) 2+ moderate URINE [id number] 12:19:00 Test Item Value Reference Range Comments CULTURE (BEAKER) (test 20-29,000 col/mL skin valentino ehiz=8490) BASIC METABOLIC [id number] 07:23:00 Test Item Value Reference Range Comments SODIUM (BEAKER) (test 136 meq/L 136-145 tjua=211) POTASSIUM (BEAKER) (test 3.9 meq/L 3.5-5.1 gklt=817) CHLORIDE (BEAKER) (test 97 meq/L 98-107 fpku=086) CO2 (BEAKER) (test 30 meq/L 22-29 ydxb=018) BLOOD UREA NITROGEN 9 mg/dL 7-21 (BEAKER) (test putd=754) CREATININE (BEAKER) (test 0.56 mg/dL 0.57-1.25 ldch=562) GLUCOSE RANDOM (BEAKER) 100 mg/dL 70-105 (test smwz=416) CALCIUM (BEAKER) (test 9.5 mg/dL 8.4-10.2 hzua=823) EGFR (BEAKER) (test 147 mL/min/1.73 sq m ESTIMATED GFR IS NOT oqbu=4655) ACCURATE CREATININE CLEARANCE IN PREDICTING GLOMERULAR FILTRATION RATE. ESTIMATED GFR IS NOT APPLICABLE FOR DIALYSIS PATIENTS. U/S, ABDOMINAL, [id number] 23:52:00Reason for exam:->painShould this be performed at [...] MDReport Verified Date/Time: 05/30/2017 23:52:25 Reading Location: [address] Consult Reading Room 11:52 PMCBC W/PLT COUNT & AUTO [id number] 17:30:00 Test Item Value Reference Range Comments WHITE BLOOD CELL COUNT (BEAKER) (test fmhq=589) 14.0 K/ L 3.5-10.5 RED BLOOD CELL COUNT (BEAKER) (test xtyz=934) 2.41 M/ L 3.93-5.22 HEMOGLOBIN (BEAKER) (test nmtf=570) 7.7 GM/DL 11.2-15.7 HEMATOCRIT (BEAKER) (test ggyh=299) 23.3 % 34.1-44.9 MEAN CORPUSCULAR VOLUME (BEAKER) (test fumd=175) 96.7 fL 79.4-94.8 MEAN CORPUSCULAR HEMOGLOBIN (BEAKER) (test 32.0 pg 25.6-32.2 itbh=005) MEAN CORPUSCULAR HEMOGLOBIN CONC (BEAKER) (test 33.0 GM/DL 32.2-35.5 fdeu=399) RED CELL DISTRIBUTION WIDTH (BEAKER) (test 20.0 % 11.7-14.4 jaqc=570) PLATELET COUNT (BEAKER) (test udhw=427) 163 K/CU MM 150-450 MEAN PLATELET VOLUME (BEAKER) (test doft=371) 11.7 fL 9.4-12.3 NUCLEATED RED BLOOD CELLS (BEAKER) (test 4 /100 WBC 0-0 mgek=795) NEUTROPHILS RELATIVE PERCENT (BEAKER) (test 47 % tjnk=338) LYMPHOCYTES RELATIVE PERCENT (BEAKER) (test 32 % xmxi=198) MONOCYTES RELATIVE PERCENT (BEAKER) (test 18 % favm=803) EOSINOPHILS RELATIVE PERCENT (BEAKER) (test 3 % vjea=607) BASOPHILS RELATIVE PERCENT (BEAKER) (test 0 % kwlo=996) NEUTROPHILS ABSOLUTE COUNT (BEAKER) (test 6.58 K/ L 1.56-6.13 sxhy=941) LYMPHOCYTES ABSOLUTE COUNT (BEAKER) (test 4.40 K/ L 1.18-3.74 dnfc=871) MONOCYTES ABSOLUTE COUNT (BEAKER) (test 2.49 K/ L 0.24-0.36 jrhu=792) EOSINOPHILS ABSOLUTE COUNT (BEAKER) (test 0.44 K/ L 0.04-0.36 gjgv=666) BASOPHILS ABSOLUTE COUNT (BEAKER) (test 0.02 K/ L 0.01-0.08 cpty=138) IMMATURE GRANULOCYTES-RELATIVE PERCENT (BEAKER) 0 % 0-1 (test slnc=9132) BASIC METABOLIC [id number] 06:33:00 Test Item Value Reference Range Comments SODIUM (BEAKER) (test 139 meq/L 136-145 eolk=814) POTASSIUM (BEAKER) (test 4.0 meq/L 3.5-5.1 khmt=314) CHLORIDE (BEAKER) (test 102 meq/L 98-107 wyre=939) CO2 (BEAKER) (test 28 meq/L 22-29 lgdg=389) BLOOD UREA NITROGEN 7 mg/dL 7-21 (BEAKER) (test ppcl=187) CREATININE (BEAKER) (test 0.54 mg/dL 0.57-1.25 gyel=781) GLUCOSE RANDOM (BEAKER) 95 mg/dL 70-105 (test dvur=735) CALCIUM (BEAKER) (test 9.6 mg/dL 8.4-10.2 kzgr=793) EGFR (BEAKER) (test 153 mL/min/1.73 sq m ESTIMATED GFR IS NOT reks=4732) ACCURATE CREATININE CLEARANCE IN PREDICTING GLOMERULAR FILTRATION RATE. ESTIMATED GFR IS NOT APPLICABLE FOR DIALYSIS PATIENTS. CBC W/PLT COUNT & AUTO [id number] 13:41:00 Test Item Value Reference Range Comments WHITE BLOOD CELL COUNT (BEAKER) (test cjbu=501) 14.6 K/ L 3.5-10.5 RED BLOOD CELL COUNT (BEAKER) (test svac=166) 1.85 M/ L 3.93-5.22 HEMOGLOBIN (BEAKER) (test aehc=264) 5.9 GM/DL 11.2-15.7 HEMATOCRIT (BEAKER) (test fwlh=834) 18.5 % 34.1-44.9 MEAN CORPUSCULAR VOLUME (BEAKER) (test ltpt=709) 100.0 fL 79.4-94.8 MEAN CORPUSCULAR HEMOGLOBIN (BEAKER) (test 31.9 pg 25.6-32.2 newp=949) MEAN CORPUSCULAR HEMOGLOBIN CONC (BEAKER) (test 31.9 GM/DL 32.2-35.5 ulqa=143) RED CELL DISTRIBUTION WIDTH (BEAKER) (test 21.0 % 11.7-14.4 bngf=461) PLATELET COUNT (BEAKER) (test geei=851) 169 K/CU MM 150-450 MEAN PLATELET VOLUME (BEAKER) (test vqax=784) 12.1 fL 9.4-12.3 NUCLEATED RED BLOOD CELLS (BEAKER) (test 3 /100 WBC 0-0 cuvt=658) NEUTROPHILS RELATIVE PERCENT (BEAKER) (test 52 % lotq=203) LYMPHOCYTES RELATIVE PERCENT (BEAKER) (test 28 % mhfd=733) MONOCYTES RELATIVE PERCENT (BEAKER) (test 16 % cwuv=824) EOSINOPHILS RELATIVE PERCENT (BEAKER) (test 4 % endr=641) BASOPHILS RELATIVE PERCENT (BEAKER) (test 0 % mfln=272) NEUTROPHILS ABSOLUTE COUNT (BEAKER) (test 7.50 K/ L 1.56-6.13 wvyo=111) LYMPHOCYTES ABSOLUTE COUNT (BEAKER) (test 4.08 K/ L 1.18-3.74 cmif=219) MONOCYTES ABSOLUTE COUNT (BEAKER) (test 2.34 K/ L 0.24-0.36 auyr=498) EOSINOPHILS ABSOLUTE COUNT (BEAKER) (test 0.56 K/ L 0.04-0.36 lkcr=791) BASOPHILS ABSOLUTE COUNT (BEAKER) (test 0.02 K/ L 0.01-0.08 stlc=933) IMMATURE GRANULOCYTES-RELATIVE PERCENT (BEAKER) 0 % 0-1 (test uyhf=4965) (MANUAL DIFFERENTIAL)2017-05-29 13:41:00 Test Item Value Reference Range Comments TOTAL COUNTED (BEAKER) (test zkch=3583) WBC MORPHOLOGY (BEAKER) (test jwru=027) Normal PLT MORPHOLOGY (BEAKER) (test fdmn=585) Normal POLYCHROMATOPHILLIC RBCS(BEAKER) (test mfwo=204) 2+ moderate SICKLE CELLS (BEAKER) (test nxmg=015) 1+ few TARGET CELLS (BEAKER) (test jdwv=662) 2+ moderate BASIC METABOLIC [id number] 07:38:00 Test Item Value Reference Range Comments SODIUM (BEAKER) (test 140 meq/L 136-145 mbgf=711) POTASSIUM (BEAKER) (test 3.9 meq/L 3.5-5.1 amfx=880) CHLORIDE (BEAKER) (test 104 meq/L 98-107 mczs=924) CO2 (BEAKER) (test 28 meq/L 22-29 kqfi=516) BLOOD UREA NITROGEN 8 mg/dL 7-21 (BEAKER) (test krtu=809) CREATININE (BEAKER) (test 0.56 mg/dL 0.57-1.25 cftg=523) GLUCOSE RANDOM (BEAKER) 129 mg/dL 70-105 (test yfyh=233) CALCIUM (BEAKER) (test 9.2 mg/dL 8.4-10.2 peor=557) EGFR (BEAKER) (test 147 mL/min/1.73 sq m ESTIMATED GFR IS NOT cxgv=1182) ACCURATE CREATININE CLEARANCE IN PREDICTING GLOMERULAR FILTRATION RATE. ESTIMATED GFR IS NOT APPLICABLE FOR DIALYSIS PATIENTS. CBC W/PLT COUNT & AUTO [id number] 15:40:00 Test Item Value Reference Range Comments WHITE BLOOD CELL COUNT (BEAKER) (test ketz=967) 15.5 K/ L 3.5-10.5 RED BLOOD CELL COUNT (BEAKER) (test enei=782) 2.13 M/ L 3.93-5.22 HEMOGLOBIN (BEAKER) (test rnsu=730) 6.8 GM/DL 11.2-15.7 HEMATOCRIT (BEAKER) (test gjhf=052) 21.1 % 34.1-44.9 MEAN CORPUSCULAR VOLUME (BEAKER) (test kino=051) 99.1 fL 79.4-94.8 MEAN CORPUSCULAR HEMOGLOBIN (BEAKER) (test 31.9 pg 25.6-32.2 vbcn=386) MEAN CORPUSCULAR HEMOGLOBIN CONC (BEAKER) (test 32.2 GM/DL 32.2-35.5 rczw=515) RED CELL DISTRIBUTION WIDTH (BEAKER) (test 20.8 % 11.7-14.4 xdey=427) PLATELET COUNT (BEAKER) (test bgit=074) 178 K/CU MM 150-450 MEAN PLATELET VOLUME (BEAKER) (test zhnb=926) 11.9 fL 9.4-12.3 NUCLEATED RED BLOOD CELLS (BEAKER) (test 2 /100 WBC 0-0 yfhj=819) NEUTROPHILS RELATIVE PERCENT (BEAKER) (test 47 % tqxe=834) LYMPHOCYTES RELATIVE PERCENT (BEAKER) (test 34 % tzsq=215) MONOCYTES RELATIVE PERCENT (BEAKER) (test 16 % btyx=891) EOSINOPHILS RELATIVE PERCENT (BEAKER) (test 3 % arko=300) BASOPHILS RELATIVE PERCENT (BEAKER) (test 0 % isnd=697) NEUTROPHILS ABSOLUTE COUNT (BEAKER) (test 7.20 K/ L 1.56-6.13 xvqv=016) LYMPHOCYTES ABSOLUTE COUNT (BEAKER) (test 5.22 K/ L 1.18-3.74 rxsl=676) MONOCYTES ABSOLUTE COUNT (BEAKER) (test 2.50 K/ L 0.24-0.36 fezt=362) EOSINOPHILS ABSOLUTE COUNT (BEAKER) (test 0.48 K/ L 0.04-0.36 ahqx=596) BASOPHILS ABSOLUTE COUNT (BEAKER) (test 0.02 K/ L 0.01-0.08 twnp=775) IMMATURE GRANULOCYTES-RELATIVE PERCENT (BEAKER) 1 % 0-1 (test mvhr=8357) (MANUAL DIFFERENTIAL)2017-05-28 15:40:00 Test Item Value Reference Range Comments TOTAL COUNTED (BEAKER) (test qffh=4659) WBC MORPHOLOGY (BEAKER) (test hhah=850) Normal PLT MORPHOLOGY (BEAKER) (test fhmy=603) Normal ANISOCYTOSIS (BEAKER) (test ejyx=244) 2+ moderate POLYCHROMATOPHILLIC RBCS(BEAKER) (test jhtm=920) 2+ moderate SICKLE CELLS (BEAKER) (test dyny=647) 1+ few TARGET CELLS (BEAKER) (test wbit=517) 2+ moderate URINALYSIS W/ [id number] 15:13:00 Test Item Value Reference Range Comments COLOR (BEAKER) (test fauj=378) Yellow CLARITY (BEAKER) (test ymzn=711) Clear SPECIFIC GRAVITY UA (BEAKER) (test moax=822) 1.008 1.001-1.035 PH UA (BEAKER) (test ywpk=049) 6.0 5.0-8.0 PROTEIN UA (BEAKER) (test tjsy=396) Negative Negative GLUCOSE UA (BEAKER) (test pnxc=500) Negative Negative KETONES UA (BEAKER) (test jejx=529) Negative Negative BILIRUBIN UA (BEAKER) (test cxba=927) Negative Negative BLOOD UA (BEAKER) (test bmip=238) Negative Negative NITRITE UA (BEAKER) (test lrrg=642) Negative Negative LEUKOCYTE ESTERASE UA (BEAKER) (test pqgd=913) Negative Negative UROBILINOGEN UA (BEAKER) (test adot=496) 0.2 mg/dL 0.2-1.0 RBC UA (BEAKER) (test zvnw=407) < /HPF WBC UA (BEAKER) (test ajlc=321) 2 /HPF MUCUS (BEAKER) (test wirj=4621) Rare SQUAMOUS EPITHELIAL (BEAKER) (test muro=905) 5 /HPF SOURCE(BEAKER) (test siqb=2158) Urine, Voided BASIC METABOLIC [id number] 06:26:00 Test Item Value Reference Range Comments SODIUM (BEAKER) (test 139 meq/L 136-145 viqc=319) POTASSIUM (BEAKER) (test 3.8 meq/L 3.5-5.1 cxnq=567) CHLORIDE (BEAKER) (test 104 meq/L 98-107 vwqt=619) CO2 (BEAKER) (test 30 meq/L 22-29 sese=057) BLOOD UREA NITROGEN 6 mg/dL 7-21 (BEAKER) (test nvvn=849) CREATININE (BEAKER) (test 0.56 mg/dL 0.57-1.25 ohmi=803) GLUCOSE RANDOM (BEAKER) 102 mg/dL 70-105 (test lnad=802) CALCIUM (BEAKER) (test 9.0 mg/dL 8.4-10.2 voby=647) EGFR (BEAKER) (test 147 mL/min/1.73 sq m ESTIMATED GFR IS NOT qnub=9457) ACCURATE CREATININE CLEARANCE IN PREDICTING GLOMERULAR FILTRATION RATE. ESTIMATED GFR IS NOT APPLICABLE FOR DIALYSIS PATIENTS.
[2018-06-04] MEDS ORDERED: PROMETHAZINE 25 MG/ML VIAL ONE (11:39)
[2018-06-04] MEDS ORDERED: NA CHLORIDE 0.9% 1,000 ML ONE (11:39)
[2018-06-04] MEDS ORDERED: HYDROMORPHONE HCL 1 MG/ML INJ ONE ×2 (11:39→14:00)
[2018-06-04] MEDS ORDERED: FOLIC ACID 5 MG/ML VIAL ONE (11:42)
[2018-06-04 11:43] LABS: Protime INR 1.2
[2018-06-04 11:44] LABS: MPV 8.6 fL (7.6-11.3)
[2018-06-04 11:48] LABS: Absolute Lymphocytes (CBC) 6.9 K/uL (0.7-4.9); Absolute Monocytes 1.4 K/uL (0.1-1.3); Absolute Neutrophil 6.2 K/uL (1.8-8.0); Basophils % 2.2 % (0-1.3); Eosinophils % 2.2 % (0-4.4); Lymphocytes % 45.4 % (15.3-44.8); MCH 34.9 pg (27.0-35.0); MCV 100.7 fL (80-100); Monocytes % 9.4 % (3.3-12.3); RBC Red Blood Cell Count 1.92 M/uL (3.86-4.86)
--- NOTE | 2018-06-04 11:50 | RAD REPORT ---
EXAM DESCRIPTION: RAD - Chest Single View - 06/04/2018 11:34 am CLINICAL HISTORY: COUGH Chest pain. COMPARISON: Chest Single View dated 04/15/2018; Chest Single View dated 01/29/2018; Chest Single View dated 01/21/2018; Chest Single View dated 08/11/2017 FINDINGS: Portable technique limits examination quality. The lungs are grossly clear. The heart is mildly enlarged in size. No displaced fractures.Right port catheter its tip in the SVC. IMPRESSION: Mild cardiomegaly.
[2018-06-04 11:55] LABS: Hematocrit 19.3 % (36.0-45.0)
[2018-06-04 12:12] LABS: ALT/SGPT 69 U/L (12-78); AST/SGOT 133 U/L (15-37); Alkaline Phosphatase 217 U/L (45-117); BUN Blood Urea Nitrogen 5 mg/dL (7-18); Bicarbonate 29 mmol/L (21-32); Bilirubin Direct 0.7 mg/dL (0-0.2); Bilirubin Total 2.7 mg/dL (0.2-1.0); Glucose Level 122 mg/dL (74-106); Lipase 100 U/L (73-393); NT PRO-BNP 244 pg/mL (<125); Potassium 3.5 mmol/L (3.5-5.1); Sodium Level 138 mmol/L (136-145); Troponin (Emerg Dept Use Only) < 0.02 ng/mL (0.0-0.045)
[2018-06-04 12:22] LABS: Anisocytosis 3+; Blood Morphology Comment NOTED (NOT SEEN); Hypochromasia 1+; Macrocytosis 2+; Platelet Estimate ADEQ; Poikilocytosis 2+; Polychromasia 1+
[2018-06-04 12:23] LABS: Target Cells 1+
[2018-06-04] MEDS ORDERED: hydrOXYzine HCl 50 MG/ML VIAL IM ONE (12:28)
--- NOTE | 2018-06-04 12:33 | EKG ---
Test Date: 2018-06-04 Test Time: 11:03:28 [employer] Supervisor: ALLISON MEASUREMENT RESULTS: Intervals: Rate: 84 WV: 184 QRSD: 90 QT: 418 QTc: 493 Qulin: P: 65 WV: 184 QRS: 60 T: 53 INTERPRETIVE STATEMENTS: Sinus rhythm with premature atrial complexes Prolonged QT Abnormal ECG Compared to ECG 04/15/2018 18:26:11 Atrial premature complex(es) now present Ventricular premature complex(es) no longer present Electronically Signed On 06-04-18 12:32:43 CDT by Ronan Ojeda
--- NOTE | 2018-06-04 12:41 | EDPHYS ---
Physician Documentation [facility] Name: Brennon Berg Age: 38 yrs Sex: Female : 1980 Arrival Date: 06/04/2018 Time: 10:39 Bed 20 Private MD: ED Physician Spenser Luis HPI: 06/04 10:55 This 38 yrs old Black Female presents to ER via Ambulatory with complaints of Sickle anupam Cell Crisis. 10:55 pain all over, hx ssc. Onset: The symptoms/episode began/occurred 3 day(s) ago. anupam Severity of symptoms: At their worst the symptoms were moderate severe in the emergency department the symptoms are unchanged. The patient has experienced similar episodes in the past, multiple times. The patient has not recently seen a physician. 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 hb Historical: - Allergies: 10:52 Fentanyl; hb 10:52 Morphine; hb 10:52 Reglan; hb 10:52 Stadol; hb 10:52 Toradol; hb 10:52 tramadol; hb 10:52 Trazodone; hb 10:52 Ultram; hb 10:52 Zofran; hb - Home Meds: 10:52 gabapentin 300 mg Oral cap 1 cap 3 times per day [Active]; Hydrea 500 mg Oral cap TID hb [Active]; hydrocodone-acetaminophen 2.5-500 mg Oral tab 1 tab every 4 hours [Active]; hydroxyurea 500 mg Oral cap 1 cap every 3 days [Active]; Keppra 250 mg Oral tab 1 tabs 2 times per day [Active]; Promethazine Oral [Active]; 10:50 Xanax 2 mg Oral tab 2 times a day [Active]; rb1 - PMHx: 10:52 aplastic anemia; CVA; Myocardial infarction; Seizures; Sickle Cell; L sided weakness; hb - PSHx: 10:52 Hysterectomy; splenectomy; Cholecystectomy; ; hb - Immunization history:: Adult Immunizations up to date. - Social history:: Smoking status: Patient uses tobacco products. - Ebola Screening: : Patient negative for fever greater than or equal to 101.5 degrees Fahrenheit, and additional compatible Ebola Virus Disease symptoms Patient denies exposure to infectious person Patient denies travel to an Ebola-affected area in the 21 days before illness onset No symptoms or risks identified at this time. - Family history:: not pertinent. ROS: 10:55 Eyes: Negative for injury, pain, redness, and discharge, ENT: Negative for injury, anupam pain, and discharge, Neck: Negative for injury, pain, and swelling, Cardiovascular: Negative for chest pain, palpitations, and edema, Respiratory: Negative for shortness of breath, cough, wheezing, and pleuritic chest pain, Abdomen/GI: Negative for abdominal pain, nausea, vomiting, diarrhea, and constipation, Back: Negative for injury and pain, : Negative for injury, bleeding, discharge, and swelling, MS/Extremity: Negative for injury and deformity, Skin: Negative for injury, rash, and discoloration, Neuro: Negative for headache, weakness, numbness, tingling, and seizure, Psych: Negative for depression, anxiety, suicide ideation, homicidal ideation, and hallucinations, Allergy/Immunology: Negative for hives, rash, and allergies, Endocrine: Negative for neck swelling, polydipsia, polyuria, polyphagia, and marked weight changes, Hematologic/Lymphatic: Negative for swollen nodes, abnormal bleeding, and unusual bruising. 10:55 Constitutional: Positive for body aches, fatigue, malaise. Exam: 10:56 Constitutional: This is a well developed, well nourished patient who is awake, alert, anupam and in no acute distress. Head/Face: Normocephalic, atraumatic. Eyes: Pupils equal round and reactive to light, extra-ocular motions intact. Lids and lashes normal. Conjunctiva and sclera are non-icteric and not injected. Cornea within normal limits. Periorbital areas with no swelling, redness, or edema. ENT: Nares patent. No nasal discharge, no septal abnormalities noted. Tympanic membranes are normal and external auditory canals are clear. Oropharynx with no redness, swelling, or masses, exudates, or evidence of obstruction, uvula midline. Mucous membranes moist. Neck: Trachea midline, no thyromegaly or masses palpated, and no cervical lymphadenopathy. Supple, full range of motion without nuchal rigidity, or vertebral point tenderness. No Meningismus. Chest/axilla: Normal chest wall appearance and motion. Nontender with no deformity. No lesions are appreciated. Cardiovascular: Regular rate and rhythm with a normal S1 and S2. No gallops, murmurs, or rubs. Normal PMI, no JVD. No pulse deficits. Respiratory: Lungs have equal breath sounds bilaterally, clear to auscultation and percussion. No rales, rhonchi or wheezes noted. No increased work of breathing, no retractions or nasal flaring. Abdomen/GI: Soft, non-tender, with normal bowel sounds. No distension or tympany. No guarding or rebound. No evidence of tenderness throughout. Female : Normal external genitalia. Skin: Warm, dry with normal turgor. Normal color with no rashes, no lesions, and no evidence of cellulitis. MS/ Extremity: Pulses equal, no cyanosis. Neurovascular intact. Full, normal range of motion. Neuro: Awake and alert, GCS 15, oriented to person, place, time, and situation. Cranial nerves II-XII grossly intact. Motor strength 5/5 in all extremities. Sensory grossly intact. Cerebellar exam normal. Normal gait. Psych: Awake, alert, with orientation to person, place and time. Behavior, mood, and affect are within normal limits. Vital Signs: 10:52 BP 140 / 97; Pulse 68; Resp 15; Pulse Ox 96% on R/A; Weight 66.22 kg; Height 5 ft. 3 hb in. (160.02 cm); Pain 10/10; 11:45 BP 174 / 92; Pulse 87; Resp 17; Pulse Ox 98% on R/A; rb1 12:45 BP 144 / 92; Pulse 79; Resp 17; Pulse Ox 100% on R/A; rb1 13:45 BP 144 / 93; Pulse 87; Resp 17; Pulse Ox 100% ; rb1 10:52 Body Mass Index 25.86 (66.22 kg, 160.02 cm) hb MDM: 10:43 Patient medically screened. [facility] 10:56 Data reviewed: vital signs, nurses notes, lab test result(s), EKG, radiologic studies, anupam plain films. 06/04 10:54 Order name: Basic Metabolic Panel; Complete Time: 12:27 [facility] 06/04 10:54 Order name: CBC with Diff; Complete Time: 12:27 [facility] 06/04 10:54 Order name: LFT's; Complete Time: 12:27 [facility] 06/04 10:54 Order name: Magnesium; Complete Time: 12:27 [facility] 06/04 10:54 Order name: NT PRO-BNP; Complete Time: 12:27 [facility] 06/04 10:54 Order name: PT-INR; Complete Time: 12:01 [facility] 06/04 10:54 Order name: Troponin (emerg Dept Use Only); Complete Time: 12:27 [facility] 06/04 10:54 Order name: Blood Culture Adult (2) [facility] 06/04 10:54 Order name: Lipase; Complete Time: 12:27 [facility] 06/04 10:54 Order name: Retic Count; Complete Time: 12:27 [facility] 06/04 10:54 Order name: Type And Screen [facility] 06/04 10:54 Order name: Urine Culture [facility] 06/04 10:54 Order name: UDS [facility] 06/04 10:54 Order name: XRAY Chest (1 view); Complete Time: 12:01 [facility] 06/04 10:54 Order name: EKG; Complete Time: 10:55 [facility] 06/04 12:22 Order name: Manual Differential; Complete Time: 12:27 [facility] 06/04 12:45 Order name: CONS Physician Consult [facility] 06/04 13:03 Order name: Urine Dipstick--Ancillary (enter results) 06/04 14:02 Order name: Urine Dipstick-Ancillary [facility] 06/04 10:54 Order name: Cardiac monitoring; Complete Time: 11:28 [facility] 06/04 10:54 Order name: EKG - Nurse/Tech; Complete Time: 11:06 [facility] 06/04 10:54 Order name: IV Saline Lock; Complete Time: 11:28 [facility] 06/04 10:54 Order name: Labs collected and sent; Complete Time: 11:28 [facility] 06/04 10:54 Order name: O2 Per Protocol; Complete Time: 11:06 [facility] 06/04 10:54 Order name: O2 Sat Monitoring; Complete Time: 11:06 [facility] 06/04 10:54 Order name: Oxygen; Complete Time: 11:06 [facility] Administered Medications: 11:50 Drug: NS 0.9% 1000 ml Route: IV; Rate: 1 bolus; Site: Port-a-cath; rb1 11:50 Drug: foLIC Acid 1 mg Route: IVPB; Site: Port-a-cath; rb1 11:50 Drug: Dilaudid 1 mg Route: IVP; Site: Port-a-cath; rb1 12:05 Follow up: Response: No adverse reaction; Pain is decreased rb1 11:50 Drug: Phenergan 12.5 mg Route: IVP; Site: Port-a-cath; rb1 12:05 Follow up: Response: No adverse reaction; Nausea is decreased rb1 12:20 Drug: hydrOXYzine 50 mg Route: PO; rb1 12:35 Follow up: Response: No adverse reaction rb1 12:48 Not Given (No Benadryl is available.): Benadryl 50 mg IVP once rb1 13:09 Not Given (changed order for IVP): Rocephin - (cefTRIAXone) 1 grams IVPB once over 30 rb1 mins; (mix in 50 mL NS) 13:09 Drug: Rocephin 1 grams Route: IV; Rate: calculated rate; Site: Port-a-cath; rb1 13:40 Follow up: Response: No adverse reaction; IV Status: Completed infusion rb1 13:57 Drug: Dilaudid 1 mg Route: IVP; Site: Port-a-cath; rb1 Disposition: 06/04/18 12:40 Hospitalization ordered by Manny Osorio for Inpatient Admission. Preliminary diagnosis are Sickle-cell/Hb-C disease, Sickle-cell/Hb-C disease with crisis, Anemia, unspecified. - Bed requested for Telemetry/MedSurg (Inpatient). - Status is Inpatient Admission. rb1 - Condition is Fair. - Problem is new. - Symptoms have improved. UTI on Admission? No Signatures: Dispatcher [employer] EDAK Alexandra Matos Diana, RN RN dw Anderson, Corey, MD MD cha Barber, Rebecca, Jessica Vera RN, RN RN hb Corrections: (The following items were deleted from the chart) 11:04 10:52 Home Meds: Xanax 2 mg Oral tab 3 times per day; hb rb1 11:05 10:54 Urine Test ordered. anupam rb1 12:22 11:56 CBC Smear Scan ordered. EDAK EDMS 12:30 12:26 Antibody Identification ordered. EDAK EDMS 13:50 12:40 Hospitalization Ordered by Manny Osorio MD for Inpatient Admission. Preliminary diagnosis is Sickle-cell/Hb-C disease; Sickle-cell/Hb-C disease with crisis; Anemia, unspecified. Bed requested for Telemetry/MedSurg (Inpatient). Status is Inpatient Admission. Condition is Fair. Problem is new. Symptoms have improved. UTI on Admission? No. anupam 14:14 13:50 06/04/2018 12:40 Hospitalization Ordered by Manny Osorio MD for Inpatient bd Admission. Preliminary diagnosis is Sickle-cell/Hb-C disease; Sickle-cell/Hb-C disease with crisis; Anemia, unspecified. Bed requested for Telemetry/MedSurg (Inpatient). Status is Inpatient Admission. Condition is Fair. Problem is new. Symptoms have improved. UTI on Admission? No. dw 14:41 14:14 06/04/2018 12:40 Hospitalization Ordered by Manny Osorio MD for Inpatient rb1 Admission. Preliminary diagnosis is Sickle-cell/Hb-C disease; Sickle-cell/Hb-C disease with crisis; Anemia, unspecified. Bed requested for Telemetry/MedSurg (Inpatient). Status is Inpatient Admission. Condition is Fair. Problem is new. Symptoms have improved. UTI on Admission? No. bd
--- NOTE | 2018-06-04 12:41 | ER ---
Nurse's Notes [facility] Name: Brennon Berg Age: 38 yrs Sex: Female : 1980 Arrival Date: 06/04/2018 Time: 10:39 Bed 20 Private MD: Diagnosis: Sickle-cell/Hb-C disease;Sickle-cell/Hb-C disease with crisis;Anemia, unspecified Presentation: 06/04 10:50 Presenting complaint: Patient states: sickle cell crisis for the past several days, hb since Sunday. I need some pain meds. I hurt all over. Transition of care: patient was not received from another setting of care. Onset of symptoms was June 02, 2018. Risk Assessment: Do you want to hurt yourself or someone else? Patient reports no desire to harm self or others. Initial Sepsis Screen: Does the patient meet any 2 criteria? No. Patient's initial sepsis screen is negative. Does the patient have a suspected source of infection? No. Patient's initial sepsis screen is negative. Care prior to arrival: None. 10:50 Method Of Arrival: Ambulatory hb 10:50 Acuity: TEMI 3 hb Triage Assessment: 10:52 General: Appears in no apparent distress. comfortable, Behavior is calm, cooperative, hb appropriate for age. 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 N/A - Hysterectomy hb Historical: - Allergies: 10:52 Fentanyl; hb 10:52 Morphine; hb 10:52 Reglan; hb 10:52 Stadol; hb 10:52 Toradol; hb 10:52 tramadol; hb 10:52 Trazodone; hb 10:52 Ultram; hb 10:52 Zofran; hb - Home Meds: 10:52 gabapentin 300 mg Oral cap 1 cap 3 times per day [Active]; Hydrea 500 mg Oral cap TID hb [Active]; hydrocodone-acetaminophen 2.5-500 mg Oral tab 1 tab every 4 hours [Active]; hydroxyurea 500 mg Oral cap 1 cap every 3 days [Active]; Keppra 250 mg Oral tab 1 tabs 2 times per day [Active]; Promethazine Oral [Active]; 10:50 Xanax 2 mg Oral tab 2 times a day [Active]; rb1 - PMHx: 10:52 aplastic anemia; CVA; Myocardial infarction; Seizures; Sickle Cell; L sided weakness; hb - PSHx: 10:52 Hysterectomy; splenectomy; Cholecystectomy; ; hb - Immunization history:: Adult Immunizations up to date. - Social history:: Smoking status: Patient uses tobacco products. - Ebola Screening: : Patient negative for fever greater than or equal to 101.5 degrees Fahrenheit, and additional compatible Ebola Virus Disease symptoms Patient denies exposure to infectious person Patient denies travel to an Ebola-affected area in the 21 days before illness onset No symptoms or risks identified at this time. - Family history:: not pertinent. Screenin:50 Abuse screen: Denies threats or abuse. Nutritional screening: No deficits noted. rb1 Tuberculosis screening: No symptoms or risk factors identified. Fall Risk None identified. Assessment: 10:50 General: Appears in no apparent distress. comfortable, Behavior is calm, cooperative, rb1 Reports chills for. Pain: Complains of pain in generalized Pain currently is 10 out of 10 on a pain scale. Pain began 2-3 days ago. Neuro: Level of Consciousness is awake, alert, obeys commands, Oriented to person, place, time, situation. Cardiovascular: Capillary refill < 3 seconds is brisk in bilateral fingers. Respiratory: Airway is patent Respiratory effort is even, unlabored, Respiratory pattern is regular, symmetrical. GI: Reports nausea. : No signs and/or symptoms were reported regarding the genitourinary system. Derm: Skin is dry, Skin is normal, Skin temperature is warm. Musculoskeletal: Range of motion: intact in all extremities. 11:50 Reassessment: Patient appears in no apparent distress at this time. No changes from rb1 previously documented assessment. 11:54 Reassessment: Received a lab alert of Hgb 6.7 and HCT 19.3. Provider notified. rb1 12:50 Reassessment: Patient appears in no apparent distress at this time. Patient and/or rb1 family updated on plan of care and expected duration. Pain level reassessed. Patient is alert, oriented x 3, equal unlabored respirations, skin warm/dry/pink. 13:50 Reassessment: Patient appears in no apparent distress at this time. No changes from rb1 previously documented assessment. 14:00 Reassessment: Tried to call report and was left on hold. rb1 14:04 Reassessment: Called to give report but the nurse was unavailable. Left extension rb1 number for her to call me back. 14:09 Reassessment: Gave report to NIKKI uHang. Information from the SBAR was given. All rb1 questions asked and answered. Vital Signs: 10:52 BP 140 / 97; Pulse 68; Resp 15; Pulse Ox 96% on R/A; Weight 66.22 kg; Height 5 ft. 3 hb in. (160.02 cm); Pain 10/10; 11:45 BP 174 / 92; Pulse 87; Resp 17; Pulse Ox 98% on R/A; rb1 12:45 BP 144 / 92; Pulse 79; Resp 17; Pulse Ox 100% on R/A; rb1 13:45 BP 144 / 93; Pulse 87; Resp 17; Pulse Ox 100% ; rb1 10:52 Body Mass Index 25.86 (66.22 kg, 160.02 cm) hb ED Course: 10:39 Patient arrived in ED. as 10:43 Spenser Luis MD is Attending Physician. anupam 10:47 Joann Priest RN is Primary Nurse. rb1 10:50 Triage completed. hb 10:50 Patient has correct armband on for positive identification. Placed in gown. Bed in low rb1 position. Call light in reach. Side rails up X 1. Pulse ox on. NIBP on. 10:52 Arm band placed on left wrist. Patient placed in an exam room, on a stretcher. hb 11:12 EKG done, by internal medicine veterinary technician. reviewed by Spenser Luis MD. at1 11:33 X-ray completed. Portable x-ray completed in exam room. Patient tolerated procedure jb2 well. 11:35 XRAY Chest (1 view) In Process Unspecified. EDMS 12:38 Manny Osorio MD is Hospitalizing Provider. anupam 14:14 No provider procedures requiring assistance completed. Patient admitted, IV remains in rb1 place. Administered Medications: 11:50 Drug: NS 0.9% 1000 ml Route: IV; Rate: 1 bolus; Site: Port-a-cath; rb1 11:50 Drug: foLIC Acid 1 mg Route: IVPB; Site: Port-a-cath; rb1 11:50 Drug: Dilaudid 1 mg Route: IVP; Site: Port-a-cath; rb1 12:05 Follow up: Response: No adverse reaction; Pain is decreased rb1 11:50 Drug: Phenergan 12.5 mg Route: IVP; Site: Port-a-cath; rb1 12:05 Follow up: Response: No adverse reaction; Nausea is decreased rb1 12:20 Drug: hydrOXYzine 50 mg Route: PO; rb1 12:35 Follow up: Response: No adverse reaction rb1 12:48 Not Given (No Benadryl is available.): Benadryl 50 mg IVP once rb1 13:09 Not Given (changed order for IVP): Rocephin - (cefTRIAXone) 1 grams IVPB once over 30 rb1 mins; (mix in 50 mL NS) 13:09 Drug: Rocephin 1 grams Route: IV; Rate: calculated rate; Site: Port-a-cath; rb1 13:40 Follow up: Response: No adverse reaction; IV Status: Completed infusion rb1 13:57 Drug: Dilaudid 1 mg Route: IVP; Site: Port-a-cath; rb1 Outcome: 12:40 Decision to Hospitalize by Provider. anupam 14:14 Patient left the ED. rb1 14:14 Admitted to Med/surg accompanied by tech, via stretcher, room 206, with chart, Report rb1 called to NIKKI Huang 14:14 Condition: stable rb1 14:14 Instructed on the need for admit. Signatures: Dispatcher [employer] EDSpenser Vazquez MD MD cha Buechter, Jesse jb2 Paloma Childers Amanda, corporate safety director EKG Tat1 Joann Priest, RN RN rb1 Jessica Quiñones, NIKKI RN hb Corrections: (The following items were deleted from the chart) 11:04 10:52 Home Meds: Xanax 2 mg Oral tab 3 times per day; hb rb1 14:42 14:41 Patient left the ED. rb1 rb1
[2018-06-04] MEDS ORDERED: ACETAMINOPHEN 500 MG TAB PO PRN (13:03)
[2018-06-04] MEDS ORDERED: HYDROMORPHONE HCL 1 MG/ML INJ IV PRN (13:09)
[2018-06-04] MEDS ORDERED: CEFTRIAXONE/SWI 1gm 1 GM/10 ML SYR ONE (13:11)
[2018-06-04 13:46] LABS: Barbiturates NEGATIVE (NEGATIVE); Benzodiazepines POSITIVE (NEGATIVE); Cocaine POSITIVE (NEGATIVE); METHAMPHETAM NEGATIVE (NEGATIVE); Methadone NEGATIVE (NEGATIVE); Opiates POSITIVE (NEGATIVE); Phencyclidine NEGATIVE (NEGATIVE); THC Cannibis NEGATIVE (NEGATIVE)
[2018-06-04 14:02] LABS: Urine Blood 1+ (NEG); Urine Glucose NEGATIVE (NEG); Urine Protein NEGATIVE (NEG); Urine Specific Gravity 1.015 (1.005-1.030); Urine pH 6.5 (5.0-7.0)
[2018-06-04] MEDS: NA CHLORIDE 0.9% 1,000 ML IV SCH ×2 (14:45→21:30)
[2018-06-04] MEDS ORDERED: PROMETHAZINE 25 MG/ML VIAL IM PRN (15:20)
[2018-06-04 15:39] VITALS: BMI 25.0
[2018-06-04] MEDS: HYDROMORPHONE HCL 2 MG/ML inj IV PRN (18:01)
[2018-06-04] MEDS: DIPHENHYDRAMINE 25 MG TAB/CAP PO PRN (18:10)
[2018-06-04] MEDS: GABAPENTIN 300 MG CAP PO SCH (21:31)
[2018-06-04] MEDS: levETIRAcetam 500 MG TAB PO SCH (21:32)
[2018-06-04] MEDS: MIRTAZAPINE 15 MG TAB PO SCH (21:32)
[2018-06-04] MEDS: ERYTHROMYCIN 3.5GM OPTH OINT EACH EYE SCH (21:32)
[2018-06-05] MEDS: HYDROMORPHONE HCL 2 MG/ML inj IV PRN ×2 (00:30→07:31)
[2018-06-05] MEDS: DIPHENHYDRAMINE 25 MG TAB/CAP PO PRN ×2 (00:39→07:32)
--- NOTE | 2018-06-05 02:52 | HP ---
Date of Admission: 06/04/2018 Primary Care Physician: Dr. Rod. Consultants: Dr. Figueroa with Hematology. Chief Complaint: Sickle cell crisis pain. History Of Present Illness: The patient is a 38-year-old female with multiple prior admissions for similar issues concerning her sickle cell anemia and pain crisis, who was in her usual state of health until 2 days prior to admission when the patient started having generalized pain all over her body, which is constant, moderate, progressively worsening. The patient normally sees Dr. Guaman, who is her specialist. She also has history of hemochromatosis apparently from multiple blood transfusions. The patient also has history of CVA, heart disease, hypertension, seizures, and has used cocaine in the past along with being positive on her UDS at this visit. The patient, however, denies using cocaine. She states that her friends used it. The patient came in for further evaluation of her symptoms. Upon arrival, her vital signs were stable. She was afebrile. Her workup revealed a hemoglobin of 6.7, which is slightly below her baseline of about 7.5. Retic count was elevated at 19%. Electrolytes were stable. Liver enzymes were elevated. The patient's chest x- ray and EKG were unremarkable. The patient was then referred for admission. She did receive Dilaudid in the ER and normal saline bolus along with folic acid. When seen in the ER, she was awake, alert, oriented x3, somewhat drowsy. Past Medical History: Sickle cell disease, history of CVA, coronary artery disease, hypertension, seizure disorder, insomnia, history of IN. Past Surgical History: Right axillary lumpectomy, splenectomy, cholecystectomy , partial hysterectomy, 6 Port-A-Cath's, 6 PICC lines, C-sections. Allergies: ZOFRAN, MORPHINE, FENTANYL, TRAMADOL, TRAZODONE, REGLAN. Medications: List reviewed. Social History: The patient denies any alcohol use or tobacco use. Denies illicit drug use, however, is positive for cocaine as she was previously as well. The patient is , has 2 children. Family History: Father has heart disease and hypertension. Mother has hypertension. Review of Systems: An 11-point system reviewed, negative except as per HPI. Physical Examination: Vital Signs: Heart rate 68, blood pressure 140/97, respirations 15, O2 96% on room air. General: Awake, alert, oriented x3, in some moderate distress due to pain. Ill appearing female. HEENT: Normocephalic, atraumatic. PERRLA. EOMI. Dry mucous membranes. Oropharynx is clear. Normal dentition. Conjunctivae anicteric. Neck: Supple. No JVD. Trachea midline. CV: S1, S2. No murmurs. Peripheral pulses present. Respiratory: Moving air well bilaterally. No wheezing or stridor. No use of accessory muscles. Gastrointestinal: Abdomen is soft, nontender, nondistended. Positive bowel sounds. Hepatomegaly present. Bowel sounds positive. Extremities: No clubbing, cyanosis, edema. Neuro: The patient has right-sided contracture, hemiparesis. Otherwise, cranial nerves intact grossly. Skin: No rashes. Normal skin turgor. Laboratory Data: UA is negative. UDS positive for opiates, benzodiazepines and cocaine. Sodium 138, potassium 3.5, chloride 104, CO2 29, BUN 5, creatinine 0.6, glucose 122, calcium 8.1, magnesium 2. AST 133, ALT 69. Troponin less than 0.02, INR 1.2. WBC 15.2, H and H 6.7 and 19.3, MCV 100.7, platelets 305, neutrophils 40%. Chest x-ray: Personally reviewed, shows mild cardiomegaly. Lungs clear. EKG: Shows sinus rhythm. Premature atrial complexes. Prolonged QT, rate of 84. Assessment And Plan: A 38-year-old female with: 1. Acute sickle cell pain crisis. We will continue with IV fluids, pain medications. 2. Cocaine abuse. Counseled. 3. Acute dehydration. 4. Coronary artery disease, nikolski artery and nikolski heart without angina. 5. History of cerebrovascular accident with left-sided hemiparesis. 6. Seizure disorder. 7. Essential hypertension. 8. Insomnia. Plan: Admit the patient to Med-Surg, place as inpatient. Monitor HH transfuse as needed. Caution due to hemachromotosis. IVFs. Resume home meds once reconciled. SCDs for DVT prophylaxis due to anemia. Patient is a poor historian - will contact Dr. Guaman during office hours. /RAUDEL Voice ID: [id number] [facility]
[2018-06-05 06:18] LABS: Absolute Lymphocytes (CBC) 5.5 K/uL (0.7-4.9); Absolute Monocytes 2.4 K/uL (0.1-1.3); Absolute Neutrophil 7.7 K/uL (1.8-8.0); Basophils % 2.1 % (0-1.3); Eosinophils % 2.4 % (0-4.4); Lymphocytes % 33.5 % (15.3-44.8); MCV 102.5 fL (80-100); MPV 8.7 fL (7.6-11.3)
[2018-06-05 06:21] LABS: ALT/SGPT 63 U/L (12-78); AST/SGOT 136 U/L (15-37); Alkaline Phosphatase 200 U/L (45-117); BUN Blood Urea Nitrogen 8 mg/dL (7-18); Bicarbonate 31 mmol/L (21-32); Bilirubin Total 1.9 mg/dL (0.2-1.0); Glucose Level 103 mg/dL (74-106); Potassium 4.2 mmol/L (3.5-5.1); Protein, Total 8.7 g/dL (6.4-8.2); Sodium Level 143 mmol/L (136-145)
[2018-06-05 06:30] LABS: Hematocrit 17.5 % (36.0-45.0)
[2018-06-05 06:49] LABS: Anisocytosis 3+; Blood Morphology Comment NOTED (NOT SEEN); Macrocytosis 2+; Platelet Estimate ADEQ; Urine White Blood Cell Casts OK
[2018-06-05 06:50] LABS: Hypochromasia 2+; Polychromasia 3+; Target Cells FEW
[2018-06-05] MEDS: NA CHLORIDE 0.9% 1,000 ML IV SCH ×3 (07:20→21:46)
[2018-06-05] MEDS: HYDROMORPHONE HCL 1 MG/ML INJ IV PRN ×4 (11:25→23:19)
[2018-06-05] MEDS: ERYTHROMYCIN 3.5GM OPTH OINT EACH EYE SCH ×2 (11:26→21:00)
[2018-06-05] MEDS: levETIRAcetam 500 MG TAB PO SCH ×3 (11:27→21:45)
[2018-06-05] MEDS: PROMETHAZINE 25 MG/ML VIAL IV PRN ×4 (11:28→23:20)
[2018-06-05] MEDS: GABAPENTIN 300 MG CAP PO SCH ×3 (11:28→21:45)
[2018-06-05 12:22] LABS: Hematocrit 17.4 % (36.0-45.0)
[2018-06-05 14:28] LABS: Ferritin 14071.1 ng/mL (8-388)
--- NOTE | 2018-06-05 17:19 | PN ---
Date of Progress Note: 06/05/2018 Subjective: The patient seen and examined. Chart reviewed and case discussed with RN. The patient seems drowsy and requesting pain medication. Does states her pain is present overall. Review of Systems: Negative except as above. Medications: List reviewed. Physical Examination: Vital Signs: Temperature 98.6, heart rate 89, blood pressure 142/84, respirations 18, O2 96% on 2 L via nasal cannula. General: Awake but drowsy, oriented x3, not in any acute distress. CV: S1, S2. Regular rate and rhythm. Peripheral pulses present. Respiratory: Moving air well bilaterally. No wheezing. Gastrointestinal: Abdomen is soft, nondistended. Positive bowel sounds. Hepatomegaly present. Extremities: No clubbing, cyanosis. Trace pedal edema. Neurologic: Nonfocal. Laboratory Data: Sodium 143, potassium 4.2, chloride 108, CO2 31, BUN 8, creatinine 0.7, glucose 103, calcium 8.4, AST 136, ALT 63, total bilirubin 1.9, alkaline phosphatase 200. WBC 16.3, H and H 6 and 17.5, platelets 267. Repeat H and H are 5.9 and 17.4. Blood cultures, no growth to date. Urine culture shows mixed valentino. Assessment And Plan: A 38-year-old female with: 1. Acute sickle cell crisis. We will continue with IV fluids. Adjust pain medications. Continue Phenergan and Benadryl. 2. Cocaine abuse, counseled. 3. Acute dehydration. Continue IV fluids, improving. 4. Sickle cell anemia. Hemoglobin dropped to 5.6, likely need transfusion. However, the patient has a history of hemochromatosis. Hematology consulted. 5. Coronary artery disease, bill moore's slough artery and bill moore's slough heart without angina. 6. History of cerebrovascular accident with left-sided hemiparesis. 7. Seizure disorder. Continue home medications. 8. Essential hypertension, stable. 9. Insomnia. 10. Gastrointestinal and deep venous thrombosis prophylaxis with PPI and SCDs. No chemical anticoagulation due to anemia. /RAUDEL Voice ID: [id number] Report ID: [id number]
[2018-06-05] MEDS: MIRTAZAPINE 15 MG TAB PO SCH (21:45)
[2018-06-05] MEDS ORDERED: NA CHLORIDE 0.9% 250 ML ONE (23:36)
[2018-06-06] MEDS: HYDROMORPHONE HCL 1 MG/ML INJ IV PRN (03:54)
[2018-06-06] MEDS: PROMETHAZINE 25 MG/ML VIAL IV PRN ×4 (03:54→20:28)
[2018-06-06 05:11] LABS: Absolute Lymphocytes (CBC) 5.6 K/uL (0.7-4.9); Absolute Monocytes 3.2 K/uL (0.1-1.3); Eosinophils % 2.4 % (0-4.4); Lymphocytes % 28.1 % (15.3-44.8); MCH 33.5 pg (27.0-35.0); MPV 8.7 fL (7.6-11.3); Monocytes % 16.1 % (3.3-12.3); RBC Red Blood Cell Count 2.03 M/uL (3.86-4.86)
[2018-06-06 05:13] LABS: Hematocrit 20.7 % (36.0-45.0)
[2018-06-06 05:17] LABS: ALT/SGPT 66 U/L (12-78); AST/SGOT 151 U/L (15-37); Alkaline Phosphatase 230 U/L (45-117); BUN Blood Urea Nitrogen 10 mg/dL (7-18); Bicarbonate 32 mmol/L (21-32); Bilirubin Total 1.9 mg/dL (0.2-1.0); Glucose Level 110 mg/dL (74-106); Potassium 4.3 mmol/L (3.5-5.1); Protein, Total 8.4 g/dL (6.4-8.2); Sodium Level 142 mmol/L (136-145)
[2018-06-06] MEDS: NA CHLORIDE 0.9% 1,000 ML IV SCH ×3 (06:00→20:00)
[2018-06-06] MEDS: ERYTHROMYCIN 3.5GM OPTH OINT EACH EYE SCH ×2 (09:00→20:30)
[2018-06-06] MEDS: levETIRAcetam 500 MG TAB PO SCH ×3 (09:45→20:29)
[2018-06-06] MEDS: GABAPENTIN 300 MG CAP PO SCH ×3 (09:46→20:29)
[2018-06-06] MEDS: HYDROMORPHONE HCL 0.5 MG/0.5 ML INJ IV PRN ×3 (11:49→22:19)
[2018-06-06 12:13] LABS: Hematocrit 24.6 % (36.0-45.0)
--- NOTE | 2018-06-06 15:33 | PN ---
Date of Progress Note: 06/06/2018 Subjective: The patient seen and examined. Chart reviewed and case discussed with RN and Dr. Figueroa. The patient per nursing staff was somewhat drowsy this morning. However, still asking for pain medications. Spoke at length with the patient's brand coordinator, Dr. Reeves covering for Dr. Guaman. The patient was last seen in January of 2018. At that point, her ferritin level was extremely elevated at 22,000 and patient will need chelation therapy. Review of Systems: Negative except as above. Medications: List reviewed. Physical Examination: Vital Signs: Temperature 98.2, heart rate 92, blood pressure 137/81, respirations 18, O2 is 99% on 2 L via nasal cannula. General: Asleep but arousable, very drowsy, not in any acute distress. Somewhat ill-appearing female. CV: S1, S2. No murmurs. Regular rate and rhythm. Peripheral pulses present. Respiratory: Moving air well bilaterally. No wheezing. Gastrointestinal: Abdomen is soft. Mild distention. Bowel sounds positive. Hepatomegaly present. Extremities: No clubbing, cyanosis, or edema. Neuro: The patient has contracture of the left upper extremity. Laboratory Data: Sodium 142, potassium 4.3, chloride 105, CO2 32, BUN 10, creatinine 0.6, glucose 110, calcium 9.1. Iron study yesterday showed iron level of 139, TIBC 130, transferrin 93, transferrin saturation 106, ferritin 14, 071. WBC 19.9, H and H 6.8 and 20.7, platelets 240, neutrophils 50%, retic count is 21%. Blood cultures, no growth to date. Urine culture, mixed valentino. Assessment And Plan: A 38-year-old female with: 1. Acute sickle cell crisis. We will decrease IV fluids 200 mL/h of normal saline. The patient is very drowsy. We will decrease Dilaudid to 0.5 mg IV q.4 and decrease Phenergan to 12.5 q.6. Continue Benadryl. 2. Sickle cell anemia. The patient was transfused 1 unit PRBCs. 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 However, as the patient was off baseline and in acute crisis. Benefits of transfusion, outweighs the risks of the patient. We will monitor patient's hemoglobin levels. Appreciate Dr. Rubio's input. 3. Acute dehydration, improving. 4. Cocaine abuse, counseled. 5. Secondary hemochromatosis. The patient will need chelation therapy either with Dr. Guaman or here locally. We will admissions counselor when the patient more awake and alert. 6. Coronary artery disease, [place] artery and [place] heart without angina. 7. History of cerebrovascular accident with left-sided hemiparesis. 8. Seizure disorder, stable. Continue seizure precautions. 9. Essential hypertension, stable. 10. Leukocytosis, likely as a reaction from the sickle cell. 11. Gastrointestinal and deep venous thrombosis prophylaxis with PPI and SCDs. No chemical anticoagulation due to anemia. Plan: As above. Overall, guarded prognosis. /RAUDEL Voice ID: [id number] Report ID: [id number] MTDD
[2018-06-06] MEDS: MIRTAZAPINE 15 MG TAB PO SCH (20:29)
[2018-06-07] MEDS: PROMETHAZINE 25 MG/ML VIAL IV PRN ×2 (01:19→22:04)
[2018-06-07] MEDS: HYDROMORPHONE HCL 0.5 MG/0.5 ML INJ IV PRN ×3 (02:39→19:20)
[2018-06-07 05:33] LABS: Absolute Lymphocytes (CBC) 5.3 K/uL (0.7-4.9); Absolute Monocytes 2.4 K/uL (0.1-1.3); Absolute Neutrophil 8.3 K/uL (1.8-8.0); Basophils % 1.7 % (0-1.3); Eosinophils % 2.2 % (0-4.4); Hematocrit 24.8 % (36.0-45.0); Lymphocytes % 31.9 % (15.3-44.8); MCV 101.4 fL (80-100); Monocytes % 14.5 % (3.3-12.3); RBC Red Blood Cell Count 2.45 M/uL (3.86-4.86)
[2018-06-07] MEDS: NA CHLORIDE 0.9% 1,000 ML IV SCH ×3 (05:59→21:56)
[2018-06-07 06:35] LABS: Anisocytosis 2+; Blood Morphology Comment NOTED (NOT SEEN); Macrocytosis 2+; Platelet Estimate ADEQ; Poikilocytosis 1+; Polychromasia 2+; Target Cells FEW
[2018-06-07] MEDS: ERYTHROMYCIN 3.5GM OPTH OINT EACH EYE SCH ×2 (09:00→21:00)
[2018-06-07] MEDS: GABAPENTIN 300 MG CAP PO SCH ×3 (09:21→21:57)
[2018-06-07] MEDS: levETIRAcetam 500 MG TAB PO SCH ×3 (09:21→21:00)
[2018-06-07] MEDS ORDERED: ALTEPLASE 2 MG/VIAL IV ONE (11:49)
[2018-06-07] MEDS ORDERED: NS 0.9% VIAL 10 ML ONE (12:29)
--- NOTE | 2018-06-07 13:59 | RAD REPORT ---
EXAM DESCRIPTION: Bhav[facility] Single View06/07/2018 1:53 pm CLINICAL HISTORY: Chest pain COMPARISON: 06/04/2018 FINDINGS: The lungs appear clear of acute infiltrate. The heart is mildly enlarged. A central venou s catheters is tip in the superior vena cava. IMPRESSION: No acute abnormalities displayed
[2018-06-07] MEDS ORDERED: NA CHLORIDE 0.9% 500 ML IV ONE (19:00)
--- NOTE | 2018-06-07 20:21 | PN ---
Date of Progress Note: 06/07/2018 Subjective: The patient seen and examined. Chart reviewed and case discussed with RN. The patient having more pain today. Complains of chest pain, much more awake and alert today. The patient refus ed to wear the heart monitor yesterday, which was taken off and she also refused IV fluids. Review of Systems: Negative except as above. Medications: List reviewed. Physical Examination: Vital Signs: Temperature 97.4, heart rate 77, blood pressure 151/88, respirations 18, O2 98% on room air. General: Awake, alert, oriented x3. Some mild distress due to pain, ill-appearing female. CV: S1, S2. Regular rate and rhythm. Peripheral pulses present. Respiratory: Moving air well bilaterally. No wheezing. No use of accessory muscles. Gastrointestinal: Soft, distended with hepatomegaly, nontender. Positive bowel sounds. Extremities: No clubbing, cyanosis, or edema. Neuro: Nonfocal. Laboratory Data: WBC 16.7, H and H 8.3 and 24.8, platelets 221, neutrophils 49%. Assessment And Plan: A 38-year-old female with: 1.Acute sickle cell crisis. We will continue with pain medications. The patient now complaining of chest pain. We will obtain chest x-ray and EKG. Continue supplemental oxygen. The patient had ref used IV fluid hydration. We will see if the patient is convinced to restart IV fluids. 2.Sickle cell anemia. The patient received blood transfusion. Hemoglobin seems to be stable. We w ill continue to monitor H and H. Appreciate Dr. Figueroa input. 3.Cocaine abuse. 4.Acute dehydration. Continue IV fluids. 5.Secondary hemochromatosis. The patient to follow up with Dr. Guaman for outpatient chelation thera py once sickle cell crisis is resolved. 6.Coronary artery disease, [place] artery and [place] heart with angina. 7.History of cerebrovascular accident with left-sided hemiparesis. 8.Seizure disorder, stable. We will continue seizure precautions. No episodes during this stay. 9.Essential hypertension, stable. 10.Leukocytosis, likely reactive from her sickle cell crisis. 11.Gastrointestinal and deep venous thrombosis prophylaxis with PPI and SCDs. No chemical anticoagu lation due to anemia. 12.Noncompliance. Plan: Adjust pain medications. Follow up on chest x-ray and EKG. The patient may need to be boluse d with IV fluids. Overall has a poor prognosis. SA/MODL Voice ID: [id number] Report ID: [id number]
[2018-06-07] MEDS: MIRTAZAPINE 15 MG TAB PO SCH (21:56)
[2018-06-08] MEDS: HYDROMORPHONE HCL 0.5 MG/0.5 ML INJ IV PRN ×2 (01:04→06:46)
--- NOTE | 2018-06-08 04:19 | EKG ---
Test Date: 2018-06-07 Test Time: 13:30:36 [facility] Psychiatrist: ALLISON MEASUREMENT RESULTS: Intervals: Rate: 78 DC: 190 QRSD: 82 QT: 410 QTc: 467 [place]: P: 47 DC: 190 QRS: 44 T: 48 INTERPRETIVE STATEMENTS: Sinus rhythm with premature atrial complexes Otherwise normal ECG Compared to ECG 06/04/2018 11:03:28 Prolonged QT interval no longer present Electronically Signed On 06-08-18 04:17:17 CDT by Ronan Ojeda
[2018-06-08] MEDS: PROMETHAZINE 25 MG/ML VIAL IV PRN ×2 (05:15→09:36)
[2018-06-08 06:48] VITALS: O2SAT 94
[2018-06-08] MEDS: ERYTHROMYCIN 3.5GM OPTH OINT EACH EYE SCH (09:00)
[2018-06-08] MEDS ORDERED: HYDROCODONE/APAP 10/325 TAB PO PRN (09:08)
[2018-06-08] MEDS: GABAPENTIN 300 MG CAP PO SCH ×2 (09:33→14:00)
[2018-06-08] MEDS: levETIRAcetam 500 MG TAB PO SCH ×2 (09:33→14:00)
[2018-06-08 11:11] LABS: Hematocrit 26.6 % (36.0-45.0)
[2018-06-08 12:57] VITALS: BP 143/94; TEMP 97.9
[2018-06-08] MEDS ORDERED: HEPARIN SOD 100 UNIT/ML FLUSH IV PRN (13:13)
[2018-06-08] MEDS ORDERED: HEPARIN 500 UNIT/5 ML SYR IV SCH (14:00)
--- NOTE | 2018-06-09 03:15 | DS ---
Date of Discharge: 06/08/2018 Admitting Diagnoses: 1. Acute sickle cell crisis. 2. Sickle cell disease. 3. Cocaine abuse. 4. Acute dehydration. 5. Coronary artery disease, [place] artery and [place] heart without angina. 6. History of cerebrovascular accident with left-sided hemiparesis. 7. Seizure disorder. 8. Essential hypertension. 9. Insomnia. Discharge Diagnoses: 1. Sickle cell crisis, acute, improved. 2. Sickle cell anemia. 3. Status post blood transfusion. 4. Cocaine abuse, counseled. 5. Acute dehydration, resolved. 6. Secondary hemochromatosis. The patient is to follow up with grain receiver in [place], Dr. Guaman, for iron chelation therapy. 7. Coronary artery disease, [place] artery and [place] heart with angina. 8. History of cerebrovascular accident with left-sided hemiparesis. 9. Seizure disorder, stable. 10. Essential hypertension, stable. 11. Leukocytosis, reactive. 12. Noncompliance. Hospital Course: The patient is a 38-year-old female with multiple prior admissions for sickle cell crisis, comes in with pain all over her body and was found to be in acute sickle cell pain crisis. The patient was started on aggressive IV fluid hydration. Pain was controlled using IV analgesics. The patient does have high tolerance for pain and has some dependency and abuse potential. The patient did request medications by name, requesting specific doses of Dilaudid with specific doses of Benadryl and Phenergan. She has multiple allergies to morphine and Zofran, which are more like adverse side effects rather than allergies. Regardless, the patient was confronted regarding her cocaine use. She denied using cocaine, stated that she was around her friends who were using it and may have been contaminated with it. I explained to her that is not a reason for her toxicology report to come back positive. Regardless, she was counseled extensively. The patient did have a drop in her hemoglobin. She had to be transfused due to her acute sickle cell pain crisis despite her history of secondary hemochromatosis. Also, spoke with Dr. Figueroa, Oncology, at our facility as well as with the patient's primary grain receiver, Dr. Guaman's clinic, Dr. Reeves who is covering. The patient followed up back in February, had a very high ferritin count 24,000. Ferritin count at this visit has come down. However, she needs to initiate iron chelation therapy. The patient was counseled extensively. The patient's pain medications were eventually weaned down as the patient was becoming very drowsy and nonresponsive. Her hemoglobin remained stable. Her pain improved. She did have another bout of chest pain along with her sickle cell crisis, but repeat chest x-ray and EKG were within normal limits. The patient overall was doing well. She did not have any objective signs of pain. She was not tachycardic or tachypneic, however, kept requesting higher doses of pain medications. The patient was then cleared for discharge. Her blood cultures and urine cultures did not show any growth. The patient was sent home in a stable condition. Activity: Seizure precautions. No driving, swimming, unattended heights. Diet: Heart healthy. No iron containing diets. Followup: Follow up with primary care physician in 2 to 3 days. Follow up with grain receiver, Dr. Guaman, in 1 week. Return to ER for worsening condition. Medications: As per medication reconciliation list. Physical Examination: General: Awake, alert, oriented x3, not in any acute distress. CV: S1, S2. No murmurs. Respiratory: Moving air well bilaterally. Abdomen: Soft, nontender, nondistended. Positive bowel sounds. Extremities: No clubbing, cyanosis, edema. Neuro: The patient does have left hemiparesis. Total time spent discharging the patient was 39 minutes. JOSEPH Voice ID: [id number] Report ID: [id number] NATALIE
== END 2018-06-08 14:25 | disposition home or self-care (01) | DRG 812 ==
LOC: ER 10:37 → ERHOLD 12:41 → 2ND 14:11
PROVIDERS: ADMIT Family Medicine; ATTEND Family Medicine
PROC: 30233N1 Transfusion of Nonautologous Red Blood Cells into Peripheral Vein, Percutaneous Approach (ICD-10-PCS; principal; 2018-06-06)
DX: D57.00 Hb-SS disease with crisis, unspecified (principal); I69.354 Hemiplegia and hemiparesis following cerebral infarction affecting left non-dominant side; E86.0 Dehydration; E83.111 Hemochromatosis due to repeated red blood cell transfusions; I25.119 Atherosclerotic heart disease of native coronary artery with unspecified angina pectoris; G40.909 Epilepsy, unspecified, not intractable, without status epilepticus; I10 Essential (primary) hypertension; D72.828 Other elevated white blood cell count; Z91.19 Patient's noncompliance with other medical treatment and regimen; G47.00 Insomnia, unspecified; I25.2 Old myocardial infarction; Z88.5 Allergy status to narcotic agent; F14.10 Cocaine abuse, uncomplicated
CPT/HCPCS: 36415; 71045; 80048; 80053; 80076; 80307; 81003; 82728; 83540; 83615; 83690; 83735; 83880; 84443; 84466; 84484; 85014; 85018; 85025; 85044; 85610; 86850; 86870; 86900; 86901; 86922; 87040; 87086; 87088; 93005; 94760; 96365; 96375; 99285; J0696; J1170; J1642; J2550; J2997; J3410; J7030; P9016

== ENCOUNTER 2018-08-15 10:33 | Inpatient (IN) | payer OTHER ==
--- OUTSIDE RECORDS SUMMARY | 2018-08-15 10:37 | XMS REPORT | Clinical Summary ---
:1980 Author Organization [facility] Address [address] [place] [address] Care Team Providers Name Role Phone Kwesi Guaman MD Primary Care Provider Unavailable Chavo Pate Unavailable Allergies Active Allergy Reactions Severity Noted Date Comments Morphine Other (See Comments) 11/27/2013 seizures Butorphanol Tartrate Other (See Comments) 11/27/2013 seizures Sdm-Vp-Qlz-Iojihyhk-Ldsqu-Aahl 10/01/2014 seizure Ketorolac Other (See Comments) 11/27/2013 seizures Tramadol Other (See Comments) High 02/21/2014 Seizure Trazodone 10/01/2014 seizure Ondansetron Hcl (Pf) Other (See Comments) 11/27/2013 seizures Medications Medication Sig Dispensed Refills Start Date End Date Status folic acid Take 1 mg by 0 Active (FOLVITE) 1 MG mouth daily. tablet hydroxyurea Take 500 mg by 0 Active (DROXIA) 500 mg mouth 3 (three) capsule times daily . ALPRAZolam (XANAX) Take 2 mg by 0 Active 2 MG tablet mouth 3 (three) times daily as needed for Sleep . promethazine Take 25 mg by 0 Active (PHENERGAN) 25 MG mouth every 6 tablet (six) hours as needed for Nausea. HYDROcodone-acetami Take 2 tablets 0 Active nophen (NORCO by mouth every 10-325) 10-325 mg 4 (four) hours per as needed for tabletIndications: Pain. Pain mirtazapine Take 45 mg by 0 Active (REMERON) 45 MG mouth nightly. tabletIndications: major depressive disorder levETIRAcetam Take 250 mg by 0 Active (KEPPRA) 250 MG mouth 2 (two) tabletIndications: times daily. Partial Epilepsy Treatment Adjunct triamcinolone Apply topically 0 Active (KENALOG) 0.1 % 3 (three) times lotionIndications: daily. Contact Dermatitis, skin rash metoprolol Take 25 mg by 0 Discontinued (LOPRESSOR) 25 MG mouth 3 (three) 8 tablet times daily. oxymorphone (OPANA Take 40 mg by 0 Discontinued ER) 40 MG 12 hr mouth every 12 8 tablet (twelve) hours. amLODIPine Take 5 mg by 0 Discontinued (NORVASC) 5 MG mouth daily. 8 tablet Hospital, Clinic, or Ordered Dose Route Frequency Start Date End Date Status Other Facility Administered Medication promethazine 25 mg IV Once 05/04/2017 Active (PHENERGAN) injection 25 mg heparin (PF) injection 500 Units Cath Once 09/25/2017 09/25/2017 Ended syringe 500 Units sodium chloride 0.9% IV Once 09/26/2017 09/26/2017 Ended (NS) infusion heparin (PF) injection 500 Units Cath Once as needed 09/26/20172017 Ended syringe 500 Units diphenhydrAMINE 25 mg IV Once 09/26/2017 09/26/2017 Ended (BENADRYL) injection 25 mg acetaminophen 650 mg Oral Once 09/26/2017 09/26/2017 Ended (TYLENOL) tablet 650 mg promethazine 25 mg IV Once 09/26/2017 09/26/2017 Ended (PHENERGAN) injection 25 mg Active Problems Problem Noted Date Sickle cell anemia 01/09/2016 Pain 12/01/2013 Sickle cell anemia with crisis 11/30/2013 Iron overload due to repeated red blood cell transfusions 11/29/2013 History of drug abuse 11/29/2013 Sickle cell crisis 11/28/2013 Total body pain 11/28/2013 Cough 11/28/2013 Encounters Date Type Specialty Care Team Description 01/29/2018 - Hospital Encounter Oncology Jerome Busch, Hb-SS disease with crisis (HCC); 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 Total body pain Deisy Hernandez MD Ahmed, Shamoon, MD 11/22/2017 Surgery Manny Fuentes MD 11/04/2017 - Hospital Encounter Oncology Lise De Jesus MD 11/26/2017 Vipul Mcgovern MD 09/26/2017 Procedure visit Oncology Kwesi Guaman Symptomatic anemia MD Justin (Primary Dx) Yaz Quan RN 09/25/2017 Procedure visit Oncology Kwesi Guaman 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 Last Filed Vital Signs Vital Sign Reading [...] 05/20/2018 Procedures Procedure Name Priority Date/Time Associated Comments Diagnosis REPORT OF PROCEDURE - 02/11/2018 10:10 ENDOSCOPY SCAN AM CDT (CELLAVISION MANUAL Routine 02/08/2018 5:03 Results for this DIFF) AM CDT procedure are in the results section. CBC W/PLT COUNT & AUTO Routine 02/08/2018 5:03 Results for this DIFFERENTIAL AM CDT procedure are in the results section. CBC W/PLT COUNT & AUTO Routine 02/08/2018 5:03 Results for this DIFFERENTIAL AM CDT procedure are in the results section. BASIC METABOLIC PANEL Routine 02/08/2018 5:03 Results for this (7) AM CDT procedure are in the results section. (CELLAVISION MANUAL Routine 02/07/2018 5:51 Results for this DIFF) AM CDT procedure are in the results section. CBC W/PLT COUNT & AUTO Routine 02/07/2018 5:51 Results for this DIFFERENTIAL AM CDT procedure are in the results section. CBC W/PLT COUNT & AUTO Routine 02/07/2018 5:51 Results for this DIFFERENTIAL AM CDT procedure are in the results section. BASIC METABOLIC PANEL Routine 02/07/2018 5:51 Results for this (7) AM CDT procedure are in the results section. (MANUAL DIFFERENTIAL) Routine 02/06/2018 5:58 Results for this AM CDT procedure are in the results section. CBC W/PLT COUNT & AUTO Routine 02/06/2018 5:58 Results for this DIFFERENTIAL AM CDT procedure are in the results section. CBC W/PLT COUNT & AUTO Routine 02/06/2018 5:58 Results for this DIFFERENTIAL AM CDT procedure are in the results section. BASIC METABOLIC PANEL Routine 02/06/2018 5:58 Results for this (7) AM CDT procedure are in the results section. TRANSFUSION SERVICE 02/05/2018 6:00 REPORT - SCAN PM CDT (CELLAVISION MANUAL Routine 02/05/2018 6:10 Results for this DIFF) AM CDT procedure are in the results section. CBC W/PLT COUNT & AUTO Routine 02/05/2018 6:10 Results for this DIFFERENTIAL AM CDT procedure are in the results section. CBC W/PLT COUNT & AUTO Routine 02/05/2018 6:10 Results for this DIFFERENTIAL AM CDT procedure are in the results section. BASIC METABOLIC PANEL Routine 02/05/2018 6:10 Results for this (7) AM CDT procedure are in the results section. PREPARE LEUKO-REDUCED Routine 02/04/2018 11:54 Results for this RBC PM CDT procedure are in the results section. TRANSFUSION SERVICE 02/04/2018 6:00 REPORT - SCAN PM CDT (CELLAVISION MANUAL Routine 02/04/2018 4:30 Results for this DIFF) AM CDT procedure are in the results section. CBC W/PLT COUNT & AUTO Routine 02/04/2018 4:30 Results for this DIFFERENTIAL AM CDT procedure are in the results section. CBC W/PLT COUNT & AUTO Routine 02/04/2018 4:30 Results for this DIFFERENTIAL AM CDT procedure are in the results section. BASIC METABOLIC PANEL Routine 02/04/2018 4:30 Results for this (7) AM CDT procedure are in the results section. TRANSFUSE LEUKO-REDUCED Routine 02/03/2018 10:59 RED BLOOD CELLS PM CDT TRANSFUSE LEUKO-REDUCED Routine 02/03/2018 4:42 RED BLOOD CELLS PM CDT TYPE AND SCREEN, Routine 02/03/2018 8:30 Results for this AUTOMATED AM CDT procedure are in the results section. (CELLAVISION MANUAL Routine 02/03/2018 6:17 Results for this DIFF) AM CDT procedure are in the results section. CBC W/PLT COUNT & AUTO Routine 02/03/2018 6:17 Results for this DIFFERENTIAL AM CDT procedure are in the results section. CBC W/PLT COUNT & AUTO Routine 02/03/2018 6:17 Results for this DIFFERENTIAL AM CDT procedure are in the results section. BASIC METABOLIC PANEL Routine 02/03/2018 6:17 Results for this (7) AM CDT procedure are in the results section. (CELLAVISION MANUAL Routine 02/02/2018 3:48 Results for this DIFF) AM CDT procedure are in the results section. CBC W/PLT COUNT & AUTO Routine 02/02/2018 3:48 Results for this DIFFERENTIAL AM CDT procedure are in the results section. BASIC METABOLIC PANEL Routine 02/02/2018 3:48 Results for this (7) AM CDT procedure are in the results section. CBC W/PLT COUNT & AUTO Routine 02/02/2018 3:48 Results for this DIFFERENTIAL AM CDT procedure are in the results section. URINALYSIS W/ Routine 02/01/2018 7:45 Results for this MICROSCOPIC PM CDT procedure are in the results section. TRANSFUSION SERVICE 02/01/2018 6:01 REPORT - SCAN PM CDT (CELLAVISION MANUAL Routine 02/01/2018 4:27 Results for this DIFF) AM CDT procedure are in the results section. CBC W/PLT COUNT & AUTO Routine 02/01/2018 4:27 Results for this DIFFERENTIAL AM CDT procedure are in the results section. BASIC METABOLIC PANEL Routine 02/01/2018 4:27 Results for this (7) AM CDT procedure are in the results section. CBC W/PLT COUNT & AUTO Routine 02/01/2018 4:27 Results for this DIFFERENTIAL AM CDT procedure are in the results section. PREPARE LEUKO-REDUCED Routine 01/31/2018 11:54 Results for this RBC PM CDT procedure are in the results section. TRANSFUSION SERVICE 01/31/2018 5:51 REPORT - SCAN PM CDT TRANSFUSION SERVICE 01/30/2018 5:51 REPORT - SCAN PM CDT ANTIBODY IDENTIFICATION Routine 01/30/2018 3:13 Results for this PM CDT procedure are in the results section. (CELLAVISION MANUAL Routine 01/30/2018 8:44 Results for this DIFF) AM CDT procedure are in the results section. CBC W/PLT COUNT & AUTO Routine 01/30/2018 8:44 Results for this DIFFERENTIAL AM CDT procedure are in the results section. BASIC METABOLIC PANEL Routine 01/30/2018 8:44 Results for this (7) AM CDT procedure are in the results section. CBC W/PLT COUNT & AUTO Routine 01/30/2018 8:44 Results for this DIFFERENTIAL AM CDT procedure are in the results section. TRANSFUSE LEUKO-REDUCED Routine 01/30/2018 5:29 RED BLOOD CELLS AM CDT TRANSFUSE LEUKO-REDUCED Routine 01/30/2018 2:15 RED BLOOD CELLS AM CDT (CELLAVISION MANUAL Routine 01/29/2018 4:28 Results for this DIFF) PM CDT procedure are in the results section. CBC W/PLT COUNT & AUTO Routine 01/29/2018 4:28 Results for this DIFFERENTIAL PM CDT procedure are in the results section. TYPE AND SCREEN, Routine 01/29/2018 4:28 Results for this AUTOMATED PM CDT procedure are in the results section. LACTATE DEHYDROGENASE Routine 01/29/2018 4:28 Results for this (LDH) PM CDT procedure are in the results section. FERRITIN Routine 01/29/2018 4:28 Results for this PM CDT procedure are in the results section. RETICULOCYTE COUNT Routine 01/29/2018 4:28 Results for this PM CDT procedure are in the results section. BASIC METABOLIC PANEL Routine 01/29/2018 4:28 Results for this (7) PM CDT procedure are in the results section. CBC W/PLT COUNT & AUTO Routine 01/29/2018 4:28 Results for this DIFFERENTIAL PM CDT procedure are in the results section. CARDIAC CATH REPORT - 11/27/2017 8:52 SCAN PM CDT BASIC METABOLIC PANEL Routine 11/25/2017 4:38 Results for this (7) AM CDT procedure are in the results section. PHOSPHORUS Routine 11/25/2017 4:38 Results for this AM CDT procedure are in the results section. MAGNESIUM Routine 11/25/2017 4:38 Results for this AM CDT procedure are in the results section. CALCIUM, IONIZED Routine 11/25/2017 4:38 Results for this AM CDT procedure are in the results section. CREATINE KINASE (CK) Routine 11/24/2017 5:36 Results for this AM CDT procedure are in the results section. PHOSPHORUS Routine 11/24/2017 5:36 Results for this AM CDT procedure are in the results section. MAGNESIUM Routine 11/24/2017 5:36 Results for this AM CDT procedure are in the results section. BASIC METABOLIC PANEL Routine 11/24/2017 5:36 Results for this (7) AM CDT procedure are in the results section. URIC ACID Routine 11/24/2017 5:36 Results for this AM CDT procedure are in the results section. LACTATE DEHYDROGENASE Routine 11/24/2017 5:36 Results for this (LDH) AM CDT procedure are in the results section. POTASSIUM KAMRON 11/23/2017 5:35 Results for this PM CDT procedure are in the results section. CBC W/PLT COUNT & AUTO Routine 11/23/2017 4:50 Results for this DIFFERENTIAL AM CDT procedure are in the results section. CBC W/PLT COUNT & AUTO Routine 11/23/2017 4:50 Results for this DIFFERENTIAL AM CDT procedure are in the results section. BASIC METABOLIC PANEL Routine 11/23/2017 4:50 Results for this (7) AM CDT procedure are in the results section. PHOSPHORUS Routine 11/23/2017 4:50 Results for this AM CDT procedure are in the results section. MAGNESIUM Routine 11/23/2017 4:50 Results for this AM CDT procedure are in the results section. CALCIUM, IONIZED Routine 11/23/2017 4:50 Results for this AM CDT procedure are in the results section. POTASSIUM Routine 11/22/2017 3:47 Results for this PM CDT procedure are in the results section. R CATH 11/22/2017 1:14 chest pain PM CDT ELECTROLYTE PANEL Routine 11/22/2017 12:30 Results for this PM CDT procedure are in the results section. CBC W/PLT COUNT & AUTO Routine 11/22/2017 4:17 Results for this DIFFERENTIAL AM CDT procedure are in the results section. POTASSIUM Add-On 11/22/2017 4:17 Results for this AM CDT procedure are in the results section. CBC W/PLT COUNT & AUTO Routine 11/22/2017 4:17 Results for this DIFFERENTIAL AM CDT procedure are in the results section. PHOSPHORUS Routine 11/22/2017 4:17 Results for this AM CDT procedure are in the results section. MAGNESIUM Routine 11/22/2017 4:17 Results for this AM CDT procedure are in the results section. CALCIUM, IONIZED Routine 11/22/2017 4:17 Results for this AM CDT procedure are in the results section. BASIC METABOLIC PANEL Routine 11/21/2017 5:05 Results for this (7) PM CDT procedure are in the results section. CBC W/PLT COUNT & AUTO Routine 11/21/2017 4:56 Results for this DIFFERENTIAL AM CDT procedure are in the results section. B-TYPE NATRIURETIC Routine 11/21/2017 4:56 Results for this FACTOR (BNP) AM CDT procedure are in the results section. CBC W/PLT COUNT & AUTO Routine 11/21/2017 4:56 Results for this DIFFERENTIAL AM CDT procedure are in the results section. BASIC METABOLIC PANEL Routine 11/21/2017 4:56 Results for this (7) AM CDT procedure are in the results section. PHOSPHORUS Routine 11/21/2017 4:56 Results for this AM CDT procedure are in the results section. MAGNESIUM Routine 11/21/2017 4:56 Results for this AM CDT procedure are in the results section. CALCIUM, IONIZED Routine 11/21/2017 4:56 Results for this AM CDT procedure are in the results section. CBC W/PLT COUNT & AUTO Routine 11/20/2017 6:44 Results for this DIFFERENTIAL AM CDT procedure are in the results section. BLOOD GAS, VENOUS Routine 11/20/2017 6:44 Results for this AM CDT procedure are in the results section. CBC W/PLT COUNT & AUTO Routine 11/20/2017 6:44 Results for this DIFFERENTIAL AM CDT procedure are in the results section. BASIC METABOLIC PANEL Routine 11/20/2017 6:44 Results for this (7) AM CDT procedure are in the results section. PHOSPHORUS Routine 11/20/2017 6:44 Results for this AM CDT procedure are in the results section. MAGNESIUM Routine 11/20/2017 6:44 Results for this AM CDT procedure are in the results section. CALCIUM, IONIZED Routine 11/20/2017 6:44 Results for this AM CDT procedure are in the results section. FERRITIN Routine 11/19/2017 9:46 Results for this AM CDT procedure are in the results section. MAGNESIUM Routine 11/19/2017 6:25 Results for this AM CDT procedure are in the results section. BASIC METABOLIC PANEL Routine 11/19/2017 6:25 Results for this (7) AM CDT procedure are in the results section. CBC (HEMOGRAM ONLY) Routine 11/19/2017 6:25 Results for this AM CDT procedure are in the results section. TRANSFUSION SERVICE 11/17/2017 5:40 REPORT - SCAN PM CDT CBC W/PLT COUNT & AUTO Routine 11/17/2017 4:51 Results for this DIFFERENTIAL AM CDT procedure are in the results section. PHOSPHORUS Routine 11/17/2017 4:51 Results for this AM CDT procedure are in the results section. MAGNESIUM Routine 11/17/2017 4:51 Results for this AM CDT procedure are in the results section. CALCIUM, IONIZED Routine 11/17/2017 4:51 Results for this AM CDT procedure are in the results section. HEPATIC FUNCTION PANEL Routine 11/17/2017 4:51 Results for this AM CDT procedure are in the results section. BASIC METABOLIC PANEL Routine 11/17/2017 4:51 Results for this (7) AM CDT procedure are in the results section. CBC W/PLT COUNT & AUTO Routine 11/17/2017 4:51 Results for this DIFFERENTIAL AM CDT procedure are in the results section. PREPARE RBC Routine 11/16/2017 11:55 Results for this PM CDT procedure are in the results section. TRANSFUSION SERVICE 11/16/2017 5:40 REPORT - SCAN PM CDT XR CHEST 2 VIEWS STAT 11/16/2017 10:46 Results for this AM CDT procedure are in the results section. XR MANDIBLE LESS THAN 4 Routine 11/16/2017 10:37 Results for this VIEWS AM CDT procedure are in the results section. AMARILYS TITER AND PATTERN Routine 11/16/2017 9:35 Results for this AM CDT procedure are in the results section. ACTIN (SMOOTH MUSCLE) Routine 11/16/2017 9:35 Results for this ANTIBODY, IGG AM CDT procedure are in the results section. ANTI-MITOCHONDRIAL AB, Routine 11/16/2017 9:35 REFLEX TO TITER AM CDT ANTI-NUCLEAR ANTIBODY Routine 11/16/2017 9:35 Results for this (AMARILYS) AM CDT procedure are in the results section. HEPATITIS PANEL, ACUTE Routine 11/16/2017 9:35 Results for this AM CDT procedure are in the results section. (MANUAL DIFFERENTIAL) Routine 11/16/2017 4:23 Results for this AM CDT procedure are in the results section. CBC W/PLT COUNT & AUTO Routine 11/16/2017 4:23 Results for this DIFFERENTIAL AM CDT procedure are in the results section. CBC W/PLT COUNT & AUTO Routine 11/16/2017 4:23 Results for this DIFFERENTIAL AM CDT procedure are in the results section. BASIC METABOLIC PANEL Routine 11/16/2017 4:23 Results for this (7) AM CDT procedure are in the results section. PHOSPHORUS Routine 11/16/2017 4:23 Results for this AM CDT procedure are in the results section. MAGNESIUM Routine 11/16/2017 4:23 Results for this AM CDT procedure are in the results section. CALCIUM, IONIZED Routine 11/16/2017 4:23 Results for this AM CDT procedure are in the results section. TRANSFUSE LEUKO-REDUCED Routine 11/15/2017 11:12 RED BLOOD CELLS PM CDT TRANSFUSE LEUKO-REDUCED Routine 11/15/2017 8:58 RED BLOOD CELLS PM CDT URINALYSIS W/ Routine 11/15/2017 6:45 Results for this MICROSCOPIC PM CDT procedure are in the results section. PREPARE LEUKO-REDUCED Routine 11/15/2017 1:30 Results for this RBC PM CDT procedure are in the results section. XR ABDOMEN 1 VIEW KAMRON 11/15/2017 12:05 Results for this PM CDT procedure are in the results section. ANTIBODY IDENTIFICATION Routine 11/15/2017 11:17 Results for this AM CDT procedure are in the results section. TYPE AND SCREEN, Routine 11/15/2017 8:54 Results for this AUTOMATED AM CDT procedure are in the results section. CBC W/PLT COUNT & AUTO Routine 11/15/2017 8:08 Results for this DIFFERENTIAL AM CDT procedure are in the results section. CBC W/PLT COUNT & AUTO Routine 11/15/2017 8:08 Results for this DIFFERENTIAL AM CDT procedure are in the results section. US ENDOVAGINAL EV Routine 11/15/2017 7:00 Results for this AM CDT procedure are in the results section. (MANUAL DIFFERENTIAL) Routine 11/15/2017 5:30 Results for this AM CDT procedure are in the results section. CBC W/PLT COUNT & AUTO Routine 11/15/2017 5:30 Results for this DIFFERENTIAL AM CDT procedure are in the results section. LIPASE Routine 11/15/2017 5:30 Results for this AM CDT procedure are in the results section. CBC W/PLT COUNT & AUTO Routine 11/15/2017 5:30 Results for this DIFFERENTIAL AM CDT procedure are in the results section. PHOSPHORUS Routine 11/15/2017 5:30 Results for this AM CDT procedure are in the results section. BASIC METABOLIC PANEL Routine 11/15/2017 5:30 Results for this (7) AM CDT procedure are in the results section. MAGNESIUM Routine 11/15/2017 5:30 Results for this AM CDT procedure are in the results section. CALCIUM, IONIZED Routine 11/15/2017 5:30 Results for this AM CDT procedure are in the results section. HEPATIC FUNCTION PANEL Routine 11/15/2017 5:30 Results for this AM CDT procedure are in the results section. URINALYSIS W/ Routine 11/14/2017 6:06 Results for this MICROSCOPIC PM CDT procedure are in the results section. URINE CULTURE Routine 11/14/2017 6:19 Results for this AM CDT procedure are in the results section. CBC W/PLT COUNT & AUTO Routine 11/14/2017 5:14 Results for this DIFFERENTIAL AM CDT procedure are in the results section. CBC W/PLT COUNT & AUTO Routine 11/14/2017 5:14 Results for this DIFFERENTIAL AM CDT procedure are in the results section. BASIC METABOLIC PANEL Routine 11/14/2017 5:14 Results for this (7) AM CDT procedure are in the results section. PHOSPHORUS Routine 11/14/2017 5:14 Results for this AM CDT procedure are in the results section. MAGNESIUM Routine 11/14/2017 5:14 Results for this AM CDT procedure are in the results section. CALCIUM, IONIZED Routine 11/14/2017 5:14 Results for this AM CDT procedure are in the results section. BLOOD CULTURE Routine 11/13/2017 11:20 Results for this PM CDT procedure are in the results section. CBC W/PLT COUNT & AUTO Routine 11/13/2017 6:07 Results for this DIFFERENTIAL AM CDT procedure are in the results section. B-TYPE NATRIURETIC Routine 11/13/2017 6:07 Results for this FACTOR (BNP) AM CDT procedure are in the results section. CBC W/PLT COUNT & AUTO Routine 11/13/2017 6:07 Results for this DIFFERENTIAL AM CDT procedure are in the results section. BASIC METABOLIC PANEL Routine 11/13/2017 6:07 Results for this (7) AM CDT procedure are in the results section. PHOSPHORUS Routine 11/13/2017 6:07 Results for this AM CDT procedure are in the results section. MAGNESIUM Routine 11/13/2017 6:07 Results for this AM CDT procedure are in the results section. CALCIUM, IONIZED Routine 11/13/2017 6:07 Results for this AM CDT procedure are in the results section. (MANUAL DIFFERENTIAL) Routine 11/12/2017 5:49 Results for this AM CDT procedure are in the results section. CBC W/PLT COUNT & AUTO Routine 11/12/2017 5:49 Results for this DIFFERENTIAL AM CDT procedure are in the results section. CBC W/PLT COUNT & AUTO Routine 11/12/2017 5:49 Results for this DIFFERENTIAL AM CDT procedure are in the results section. BASIC METABOLIC PANEL Routine 11/12/2017 5:49 Results for this (7) AM CDT procedure are in the results section. PHOSPHORUS Routine 11/12/2017 5:49 Results for this AM CDT procedure are in the results section. MAGNESIUM Routine 11/12/2017 5:49 Results for this AM CDT procedure are in the results section. CALCIUM, IONIZED Routine 11/12/2017 5:49 Results for this AM CDT procedure are in the results section. (MANUAL DIFFERENTIAL) Routine 11/11/2017 4:40 Results for this AM CDT procedure are in the results section. CBC W/PLT COUNT & AUTO Routine 11/11/2017 4:40 Results for this DIFFERENTIAL AM CDT procedure are in the results section. CBC W/PLT COUNT & AUTO Routine 11/11/2017 4:40 Results for this DIFFERENTIAL AM CDT procedure are in the results section. BASIC METABOLIC PANEL Routine 11/11/2017 4:40 Results for this (7) AM CDT procedure are in the results section. PHOSPHORUS Routine 11/11/2017 4:40 Results for this AM CDT procedure are in the results section. MAGNESIUM Routine 11/11/2017 4:40 Results for this AM CDT procedure are in the results section. CALCIUM, IONIZED Routine 11/11/2017 4:40 Results for this AM CDT procedure are in the results section. ECHOCARDIOGRAM REPORT - 11/10/2017 1:20 SCAN PM CDT (MANUAL DIFFERENTIAL) Routine 11/10/2017 5:56 Results for this AM CDT procedure are in the results section. CBC W/PLT COUNT & AUTO Routine 11/10/2017 5:56 Results for this DIFFERENTIAL AM CDT procedure are in the results section. BASIC METABOLIC PANEL Routine 11/10/2017 5:56 Results for this (7) AM CDT procedure are in the results section. CBC W/PLT COUNT & AUTO Routine 11/10/2017 5:56 Results for this DIFFERENTIAL AM CDT procedure are in the results section. PHOSPHORUS Routine 11/10/2017 5:56 Results for this AM CDT procedure are in the results section. MAGNESIUM Routine 11/10/2017 5:56 Results for this AM CDT procedure are in the results section. CALCIUM, IONIZED Routine 11/10/2017 5:56 Results for this AM CDT procedure are in the results section. COMPREHENSIVE METABOLIC Routine 11/10/2017 5:56 Results for this PANEL AM CDT procedure are in the results section. 2D ECHO W/ DOPPLER STAT 11/09/2017 6:46 Results for this (CW/PW/COLOR) PM CDT procedure are in the results section. TRANSFUSION SERVICE 11/09/2017 5:41 REPORT - SCAN PM CDT (MANUAL DIFFERENTIAL) Routine 11/09/2017 5:32 Results for this AM CDT procedure are in the results section. CBC W/PLT COUNT & AUTO Routine 11/09/2017 5:32 Results for this DIFFERENTIAL AM CDT procedure are in the results section. CBC W/PLT COUNT & AUTO Routine 11/09/2017 5:32 Results for this DIFFERENTIAL AM CDT procedure are in the results section. BASIC METABOLIC PANEL Routine 11/09/2017 5:32 Results for this (7) AM CDT procedure are in the results section. B-TYPE NATRIURETIC Routine 11/09/2017 5:32 Results for this FACTOR (BNP) AM CDT procedure are in the results section. PHOSPHORUS Routine 11/09/2017 5:32 Results for this AM CDT procedure are in the results section. MAGNESIUM Routine 11/09/2017 5:32 Results for this AM CDT procedure are in the results section. CALCIUM, IONIZED Routine 11/09/2017 5:32 Results for this AM CDT procedure are in the results section. COMPREHENSIVE METABOLIC Routine 11/09/2017 5:32 Results for this PANEL AM CDT procedure are in the results section. PREPARE LEUKO-REDUCED Routine 11/08/2017 11:54 Results for this RBC PM CDT procedure are in the results section. XR CHEST 1 VIEW Routine 11/08/2017 7:20 Results for this PORTABLE/BEDSIDE PM CDT procedure are in the results section. TRANSFUSION SERVICE 11/08/2017 5:41 REPORT - SCAN PM CDT EOSINOPHIL SMEAR, URINE Routine 11/08/2017 5:33 Results for this AM CDT procedure are in the results section. PROTEIN, RANDOM URINE Routine 11/08/2017 5:33 Results for this AM CDT procedure are in the results section. CREATININE, RANDOM Routine 11/08/2017 5:33 Results for this URINE AM CDT procedure are in the results section. SODIUM, RANDOM URINE Routine 11/08/2017 5:33 Results for this AM CDT procedure are in the results section. (MANUAL DIFFERENTIAL) Routine 11/08/2017 5:32 Results for this AM CDT procedure are in the results section. CBC W/PLT COUNT & AUTO Routine 11/08/2017 5:32 Results for this DIFFERENTIAL AM CDT procedure are in the results section. CBC W/PLT COUNT & AUTO Routine 11/08/2017 5:32 Results for this DIFFERENTIAL AM CDT procedure are in the results section. BASIC METABOLIC PANEL Routine 11/08/2017 5:32 Results for this (7) AM CDT procedure are in the results section. COMPREHENSIVE METABOLIC Routine 11/08/2017 5:32 Results for this PANEL AM CDT procedure are in the results section. CT ABDOMEN/PELVIS Routine 11/08/2017 3:01 Results for this WITHOUT IV CONTRAST AM CDT procedure are in the results section. US ABDOMEN COMPLETE STAT 11/07/2017 7:27 Results for this PM CDT procedure are in the results section. TRANSFUSION SERVICE 11/07/2017 5:42 REPORT - SCAN PM CDT TRANSFUSE LEUKO-REDUCED Routine 11/07/2017 4:55 RED BLOOD CELLS PM CDT LACTIC ACID, VENOUS, Routine 11/07/2017 3:32 Results for this WHOLE BLOOD PM CDT procedure are in the results section. (MANUAL DIFFERENTIAL) Routine 11/07/2017 5:22 Results for this AM CDT procedure are in the results section. CBC W/PLT COUNT & AUTO Routine 11/07/2017 5:22 Results for this DIFFERENTIAL AM CDT procedure are in the results section. CBC W/PLT COUNT & AUTO Routine 11/07/2017 5:22 Results for this DIFFERENTIAL AM CDT procedure are in the results section. BASIC METABOLIC PANEL Routine 11/07/2017 5:22 Results for this (7) AM CDT procedure are in the results section. BLOOD CULTURE Routine 11/06/2017 6:05 Results for this PM CDT procedure are in the results section. COMPREHENSIVE METABOLIC Routine 11/06/2017 6:04 Results for this PANEL PM CDT procedure are in the results section. TRANSFUSION SERVICE 11/06/2017 5:41 REPORT - SCAN PM CDT ANTIBODY IDENTIFICATION Routine 11/06/2017 2:37 Results for this PM CDT procedure are in the results section. TRANSFUSE LEUKO-REDUCED Routine 11/06/2017 11:47 RED BLOOD CELLS AM CDT (MANUAL DIFFERENTIAL) Routine 11/06/2017 4:35 Results for this AM CDT procedure are in the results section. CBC W/PLT COUNT & AUTO Routine 11/06/2017 4:35 Results for this DIFFERENTIAL AM CDT procedure are in the results section. CBC W/PLT COUNT & AUTO Routine 11/06/2017 4:35 Results for this DIFFERENTIAL AM CDT procedure are in the results section. BASIC METABOLIC PANEL Routine 11/06/2017 4:35 Results for this (7) AM CDT procedure are in the results section. URINALYSIS W/ Routine 11/06/2017 4:26 Results for this MICROSCOPIC AM CDT procedure are in the results section. TYPE AND SCREEN, Routine 11/05/2017 9:49 Results for this AUTOMATED AM CDT procedure are in the results section. (MANUAL DIFFERENTIAL) Routine 11/05/2017 6:17 Results for this AM CDT procedure are in the results section. CBC W/PLT COUNT & AUTO Routine 11/05/2017 6:17 Results for this DIFFERENTIAL AM CDT procedure are in the results section. CBC W/PLT COUNT & AUTO Routine 11/05/2017 6:17 Results for this DIFFERENTIAL AM CDT procedure are in the results section. BASIC METABOLIC PANEL Routine 11/05/2017 6:17 Results for this (7) AM CDT procedure are in the results section. TRANSFUSION SERVICE 09/28/2017 5:44 REPORT - SCAN PM NOCTURNIST PHYSICIAN PREPARE LEUKO-REDUCED Routine 09/27/2017 11:54 Symptomatic anemia Results for this RBC PM NOCTURNIST PHYSICIAN procedure are in the results section. TRANSFUSION SERVICE 09/27/2017 5:44 REPORT - SCAN PM NOCTURNIST PHYSICIAN TRANSFUSION SERVICE 09/26/2017 5:43 REPORT - SCAN PM NOCTURNIST PHYSICIAN TRANSFUSION SERVICE 09/26/2017 5:43 REPORT - SCAN PM NOCTURNIST PHYSICIAN ANTIBODY IDENTIFICATION Routine 09/26/2017 5:40 Results for this PM NOCTURNIST PHYSICIAN procedure are in the results section. TRANSFUSE LEUKO-REDUCED Routine 09/26/2017 2:03 Symptomatic anemia RED BLOOD CELLS PM NOCTURNIST PHYSICIAN TRANSFUSE LEUKO-REDUCED Routine 09/26/2017 11:14 Symptomatic anemia RED BLOOD CELLS AM NOCTURNIST PHYSICIAN TYPE AND SCREEN, Routine 09/25/2017 2:28 Results for this AUTOMATED PM NOCTURNIST PHYSICIAN procedure are in the results section. after 08/14/2017 Results EKG-SCANNED (02/11/2018 10:10 AM CDT) Narrative Performed At Manual Differential (02/08/2018 5:03 AM CDT)Only the most recent of9 resultswithin the time period is included. % Neutros 66 % [facility] % Lymphs 22 % [facility] % Monos 8 % [facility] % Eos 3 % [facility] # Neutros 9.44 (H) 1.56 - 6.13 K/ul [facility] # Lymphs 3.15 1.18 - 3.74 K/ul [facility] # Monos 1.14 (H) 0.24 - 0.36 K/uL [facility] # Eos 0.43 (H) 0.04 - 0.36 K/uL [facility] Total Counted 100 [facility] nRBC (manual) 5 (H) 0 - 0 /100 WBC [facility] WBC Morphology Normal [facility] Platelet Morphology Normal [facility] Anisocytosis 2+ moderate [facility] Macrocytes 1+ few [facility] Target Cells 1+ few [facility] Sickle Cells 1+ few [facility] Doty-Owasa Bodies 1+ few [facility] Artifact Present [facility] Platelet Conc Adequate [facility] Specimen Blood - Central Venous Line Narrative Performed At Received comment: [facility] User comments: Slide comments: Performing Organization Address City/State/Zipcode Phone Number [facility] [address] [place] [address] CENTER CBC with platelet count + automated diff (02/08/2018 5:03 AM CDT)Only the most recent of28 resultswithin the time period is included. WBC 14.3 (H) 3.5 - 10.5 K/L [facility] RBC 2.54 (L) 3.93 - 5.22 M/L [facility] Hemoglobin 7.3 (L) 11.2 - 15.7 GM/DL [facility] Hematocrit 23.4 (L) 34.1 - 44.9 % [facility] MCV 92.1 79.4 - 94.8 fL [facility] MCH 28.7 25.6 - 32.2 pg [facility] MCHC 31.2 (L) 32.2 - 35.5 GM/DL [facility] RDW 21.4 (H) 11.7 - 14.4 % [facility] Platelets 239 150 - 450 K/CU MM [facility] MPV 11.0 9.4 - 12.3 fL [facility] nRBC 4 (H) 0 - 0 /100 WBC [facility] Specimen Blood - Central Venous Line Performing Organization Address City/[facility]/Zipcode Phone Number [facility] [address] [place] [address] [phone] CENTER Basic Metabolic Panel (02/08/2018 5:03 AM CDT)Only the most recent of30 resultswithin the time period is included. Sodium 138 136 - 145 meq/L [facility] Potassium 5.9 (H) 3.5 - 5.1 meq/L [facility] Chloride 102 98 - 107 meq/L [facility] CO2 30 (H) 22 - 29 meq/L [facility] BUN 15 7 - 21 mg/dL [facility] Creatinine 0.68 0.57 - 1.25 mg/dL [facility] Glucose 87 70 - 105 mg/dL [facility] Calcium 9.6 8.4 - 10.2 mg/dL [facility] EGFR 117Comment: ESTIMATED GFR IS mL/min/1.73 sq m [facility] NOT ACCURATE CREATININE [facility] CLEARANCE IN PREDICTING GLOMERULAR FILTRATION RATE. ESTIMATED GFR IS NOT APPLICABLE FOR DIALYSIS PATIENTS. Specimen Blood - Central Venous Line Performing Organization Address City/[facility]/Zipcode Phone Number [facility] [address] [place] [phone] CENTER Manual Differential (02/06/2018 5:58 AM CDT)Only the most recent of11 resultswithin the time period is included. % Neutros (manual) 64 % [facility] % Lymphs (manual) 22 % [facility] % Monos (manual) 8 % [facility] % Eos (manual) 6 % [facility] % Baso (manual) 0 % [facility] # Neutros (manual) 8.26 (H) 1.80 - 8.00 K/L [facility] # Lymphs (manual) 2.84 1.48 - 4.50 K/L [facility] # Monos (manual) 1.03 0.00 - 1.30 K/L [facility] # Eos (manual) 0.77 (H) 0.00 - 0.50 K/L [facility] # Baso (manual) 0.00 0.00 - 0.20 K/L [facility] Total Counted 100 [facility] nRBC (manual) 8 (H) 0 - 0 /100 WBC [facility] WBC Morphology Normal [facility] Platelet Morphology Normal [facility] Anisocytosis 2+ moderate [facility] Sickle Cells 2+ moderate [facility] Specimen Blood - Central Venous Line Performing Organization Address City/State/Zipcode Phone Number [facility] [address] [place] [address] CENTER TRANSFUSION SERVICE REPORT - SCAN (02/05/2018 6:00 PM CDT)Only the most recent of15 resultswithin the time period is included. Narrative Performed At Prepare Leuko-Red RBC (02/04/2018 11:54 PM CDT)Only the most recent of5 resultswithin the time period is included. Unit ABO O Pos SAFETRACE [place] UNIT NUMBER [id number] [place] Status WORK IN PROGRESS [place] Blood Bank Product RED BLOOD CELLS [place] PRODUCT CODE [id number] SAFETRACE TX Unit ABO O Pos SAFETRACE TX UNIT NUMBER [id number] [place]ACE [place] Status WORK IN PROGRESS [place] Blood Bank Product RED BLOOD CELLS [place] PRODUCT CODE [id number] SAFETRACE [place] CROSSMATCH COMPATIBLE SAFETRACE TX Unit ABO O Pos SAFETRACE TX UNIT NUMBER [id number] [place] Status TRANSFUSED SAFETRACE [place] Blood Bank Product RED BLOOD CELLS [place] PRODUCT CODE [id number] SAF[place] CROSSMATCH COMPATIBLE SAFETRACE TX Unit ABO O Pos SAFETRACE TX UNIT NUMBER [id number] [place] Status TRANSFUSED [place]AFET[place] Blood Bank Product RED BLOOD CELLS [place] PRODUCT CODE [id number] [place] Specimen Other Performing Organization Address City/[facility]/Zipcode Phone Number [place] Transfuse Leuko-Red RBC (02/03/2018 10:59 PM CDT)Only the most recent of12 resultswithin the time period is included.Type and screen, automated (2017 8:30 AM CDT)Only the most recent of5 resultswithin the time period is included. ABO/RH AUTOMATED (BEAKER) O POSITIVE [facility] Ab Scrn POSITIVEComment: Antibody [facility] identified within 7 days [facility] Specimen Blood Performing Organization Address City/[facility] Centercode Phone Number [facility] [address] [place] [phone] Urinalysis w/Microscopic (02/01/2018 7:45 PM CDT)Only the most recent of4 resultswithin the time period is included. Color, UA Yellow [facility] Clarity, UA Hazy [facility] Specific [place], UA 1.009 1.001 - 1.035 [facility] pH, UA 5.5 5.0 - 8.0 [facility] Protein, UA 20 mg/dL (A) Negative [facility] Glucose, UA Negative Negative [facility] Ketones, UA Negative Negative [facility] Bilirubin, UA Negative Negative [facility] Blood, UA Small (A) Negative [facility] Nitrite, UA Negative Negative [facility] Leukocytes, UA Small (A) Negative [facility] Urobilinogen, UA 0.2 0.2 - 1.0 mg/dL [facility] RBC, UA 1 /HPF [facility] WBC, UA 4 /HPF [facility] Bacteria, UA Few [facility] Mucus Occasional [facility] Squam Epithel, UA 8 /HPF [facility] Specimen Source Urine, Voided [facility] Specimen Urine - Urine, Voided Performing Organization Address City/[facility] Centercode Phone Number [address] [phone] CENTER Antibody identification (01/30/2018 3:13 PM CDT)Only the most recent of4 resultswithin the time period is included. ANTIBODY ID (SOMMER) Anti-Bg [place] Anti-Cw Anti-E Anti-S Anti-c COLD ANTIBODY UNID IgG WARM AUTO AB Antibody Consult SIGNED OUT [place]AF[place]ACE [place] Comment: Anti E, anti little c identified. Prior history of anti Cw, S, Bg, nonspecific IgG, cold and warm reacting antibodies. Transfuse E negative, little c negative, S negative, and Cw negative (if available) crossmatch compatible units.Electronic Signature: Kaushik Flores M.D. Performing Organization Address City/[facility] Centercode Phone Number [place] Reticulocyte count (01/29/2018 4:28 PM CDT) % Retic >30.0 (H) 0.5 - 1.7 % [facility] Specimen Blood Performing Organization Address City/[facility]/Zipcode Phone Number [address] [address] CENTER Lactate dehydrogenase (LDH) (01/29/2018 4:28 PM CDT)Only the most recent of2 resultswithin the time period is included. LDH 989 (H) 125 - 220 U/L [facility] Specimen Blood Performing Organization Address [facility] Centercode Phone Number [address] [address] [place] Ferritin (01/29/2018 4:28 PM CDT)Only the most recent of2 resultswithin the time period is included. Ferritin 22,730 (H) 5 - 275 ng/mL [facility] Specimen Blood Performing Organization Address [facility] Centercomi Phone Number [address] [address] [phone] [place] CARDIAC CATH REPORT - SCAN (11/27/2017 8:52 PM CDT) Narrative Performed At Calcium, Ionized (11/25/2017 4:38 AM CDT)Only the most recent of14 resultswithin the time period is included. Calcium, Ion 1.10 (L) 1.12 - 1.27 mmol/L [facility] pH, Blood 7.30 [facility] Specimen Blood Performing Organization Address [facility] Phone Number [address] [address] [place] Phosphorus (11/25/2017 4:38 AM CDT)Only the most recent of15 resultswithin the time period is included. Phosphorus 4.7 2.3 - 4.7 mg/dL [facility] Specimen Blood Performing Organization Address [facility] Phone Number [address] [address] [phone] CENTER Magnesium (11/25/2017 4:38 AM CDT)Only the most recent of16 resultswithin the time period is included. Magnesium 1.4 (L) 1.6 - 2.6 mg/dL [facility] Specimen Blood Performing Organization Address [facility] Centercode Phone Number [address] [address] CENTER Uric acid (11/24/2017 5:36 AM CDT) Uric Acid 4.8 2.6 - 7.2 mg/dL [facility] Specimen Blood Performing Organization Address City/State/Zipcode Phone Number [address] [address] [phone] [place] Creatine Kinase (CK) (11/24/2017 5:36 AM CDT) Total CK 8 (L) 29 - 200 U/L [facility] Specimen Blood Performing Organization Address City/[facility] Centercode Phone Number [address] [address] [place] Potassium (11/23/2017 5:35 PM CDT)Only the most recent of3 resultswithin the time period is included. Potassium 5.5 (H) 3.5 - 5.1 meq/L [facility] Specimen Blood - Central Venous Line Narrative Performed At Call if K > 5.4 to renal [phone] [facility] Performing Organization Address [facility] Centercomi Phone Number [address] [address] [phone] CENTER Electrolytes (11/22/2017 12:30 PM CDT) Sodium 137 136 - 145 meq/L [facility] Potassium 5.4 (H) 3.5 - 5.1 meq/L [facility] Chloride 100 98 - 107 meq/L [facility] CO2 30 (H) 22 - 29 meq/L [facility] Specimen Blood - Portacath Narrative Performed At Call results [phone] [facility] Performing Organization Address City/State/Zipcode Phone Number [address] [address] CENTER B-type Natriuretic Factor (BNP) (11/21/2017 4:56 AM CDT)Only the most recent of3 resultswithin the time period is included. BNP 120 (H) 0 - 100 pg/mL [facility] Specimen Blood Performing Organization Address City/State/Zipcode Phone Number [address] [address] [phone] [place] Blood gas, venous (11/20/2017 6:44 AM CDT) pH, Moises 7.34 7.32 - 7.42 [facility] pCO2, Moises 63 (H) 41 - 51 mmHg [facility] pO2, Moises 133 (H) 25 - 40 mmHg [facility] O2 Sat, Moises 98.4 (H) 40.0 - 70.0 % [facility] HCO3, Moises 33 (H) 21 - 29 mmol/L [facility] Base Excess, Moises 6.6 (H) -2.0 - 3.0 mmol/L [facility] Patient Temperature 37.0 C [facility] FIO2 21.0 % [facility] Specimen Blood Performing Organization Address City/State/Zipcode Phone Number [address] [address] [place] CBC (Hemogram only) (11/19/2017 6:25 AM CDT) WBC 15.3 (H) 3.5 - 10.5 K/L [facility] RBC 2.42 (L) 3.93 - 5.22 M/L [facility] Hemoglobin 7.1 (L) 11.2 - 15.7 GM/DL [facility] Hematocrit 22.5 (L) 34.1 - 44.9 % [facility] MCV 93.0 79.4 - 94.8 fL [facility] MCH 29.3 25.6 - 32.2 pg [facility] MCHC 31.6 (L) 32.2 - 35.5 GM/DL [facility] RDW 20.9 (H) 11.7 - 14.4 % [facility] Platelets 324 150 - 450 K/CU MM [facility] MPV 11.8 9.4 - 12.3 fL [facility] nRBC 1 (H) 0 - 0 /100 WBC [facility] Specimen Blood - Central Venous Line Performing Organization Address [facility] Centercode Phone Number [address] [address] CENTER Hepatic function panel (11/17/2017 4:51 AM CDT)Only the most recent of2 resultswithin the time period is included. Protein, Total 8.3 6.0 - 8.3 gm/dL [facility] Albumin 3.0 (L) 3.5 - 5.0 g/dL [facility] Total Bilirubin 1.3 (H) 0.2 - 1.2 mg/dL [facility] Bilirubin, Direct 0.7 (H) 0.1 - 0.5 mg/dL [facility] Alkaline Phosphatase 217 (H) 40 - 150 U/L [facility] AST 106 (H) 5 - 34 U/L [facility] ALT 46 6 - 55 U/L [facility] Specimen Blood - Central Venous Line Performing Organization Address City/[facility]/Zipcode Phone Number [facility] [address] [place] [phone] CENTER Prepare RBC (11/16/2017 11:55 PM CDT) Unit ABO O Pos SAFETRACE TX UNIT NUMBER [id number] [place]AF[place] Status TRANSFUSED SAFETRACE [place] Blood Bank Product RED BLOOD CELLS [place] PRODUCT CODE [id number] SAFETRACE TX Unit ABO O Pos SAFETRACE TX UNIT NUMBER [id number] [place] Status TRANSFUSED SAFETRACE TX Blood Bank Product RED BLOOD CELLS [place]AF[place] PRODUCT CODE [id number] SAFETRACE [place] CROSSMATCH COMPATIBLE SAFETRACE [place] CROSSMATCH COMPATIBLE SAFETRACE TX Performing Organization Address City/[facility]/Zipcode Phone Number [place] XR chest 2 views (11/16/2017 10:46 AM CDT) Narrative Performed At FINAL REPORT GE RIS Chest two views INDICATION: Fever, chest pain [...] MD Report Verified Date/Time:11/16/2017 10:47:19 Reading Location: [facility] Radiology Reading Room Procedure Note Interface, External [...] Report Verified Date/Time: 11/16/2017 10:47:19 Reading Location: [facility] Radiology Reading Room Performing Organization Address City/State/[facility] Centercode Phone Number GE RIS XR mandible less than 4 views (11/16/2017 10:37 AM CDT) Narrative Performed At FINAL REPORT GE RIS Mandible series 5 images INDICATION: Fever, dental [...] MD Report Verified Date/Time:11/16/2017 12:28:43 Reading Location: [facility] Radiology Reading Room Procedure Note Interface, External [...] Report Verified Date/Time: 11/16/2017 12:28:43 Reading Location: [facility] Radiology Reading Room Performing Organization Address City/State/Zipcode Phone Number RIS Anti-Mitochondrial Ab, reflex to titer (11/16/2017 9:35 AM CDT) Scan Result [facility] Specimen Blood - Central Venous Line Narrative Performed At Performing Organization Address City/State/Zipcode Phone Number [facility] [place] [address] [id number] Actin (Smooth Muscle) Antibody, IgG (11/16/2017 9:35 AM CDT) Anti-Smooth Muscle Ab 31 (H) See Note: U [facility] Comment: INCORPORATED Reference Range: <20 NEGATIVE > OR=20 POSITIVE [...] closely correlated with AIH type 1. Specimen Blood - Central Venous Line Narrative Performed At Performing Lab [facility] [address] [address] Irwin Maqruez MD, PhD Performing Organization Address [facility] Cent[facility] Phone Number [place] [address] [facility]ORPOR[facility] [address] AMARILYS Titer & Pattern (11/16/2017 9:35 AM CDT) AMARILYS Titer 1:160 [facility] AMARILYS Pattern Multiple nuclear dots pattern [facility] Specimen Blood - Central Venous Line Performing Organization Address [facility] Centercomi Phone Number [address] [address] [place] Hepatitis panel, acute (11/16/2017 9:35 AM CDT) Hep A IgM HEPATITIS A TEST NEGATIVE Nonreactive [facility] Hep B C IgM NON-REACTIVE Nonreactive [facility] Hepatitis C Ab NON-REACTIVE Nonreactive [facility] hepatitis B Surface Ag NON-REACTIVE Nonreactive [facility] Specimen Blood - Central Venous Line Performing Organization Address [facility] Centercode Phone Number [address] [address] [place] Anti-Nuclear Antibody (AMARILYS) (11/16/2017 9:35 AM CDT) AMARILYS Positive (A) Negative [facility] Specimen Blood - Central Venous Line Performing Organization Address [facility] Centercode Phone Number [address] [address] [place] XR abdomen / KUB 1 view (11/15/2017 12:05 PM CDT) Narrative Performed At FINAL REPORT [employer] RIS Abdomen one view INDICATION: Abdominal pain COMPARISON: [...] MD Report Verified Date/Time:11/15/2017 12:43:04 Reading Location: [facility] Radiology Reading Room Procedure Note Interface, External [...] Report Verified Date/Time: 11/15/2017 12:43:04 Reading Location: [facility] Radiology Reading Room Performing Organization Address City/State/Zipcode Phone Number GE RIS US Endovaginal (11/15/2017 7:00 AM CDT) Narrative Performed At FINAL REPORT [employer] TECHNIQUE: Transvaginal grayscale ultrasound of the pelvis [...] MD Report Verified Date/Time:11/15/2017 09:03:15 Reading Location: [address] Ultrasound Reading Room Procedure Note Interface, [...] to further characterize right ovarian dermoid. Signed: Funmialyo Gonzalez MD Report Verified Date/Time: 11/15/2017 09:03:15 Reading Location: [address] Ultrasound Reading Room Performing Organization Address City/State/Zipcode Phone Number [facility] Lipase (11/15/2017 5:30 AM CDT) Lipase 95 (H) 8 - 78 U/L [facility] Specimen Blood - Central Venous Line Performing Organization Address City/[facility]/Zipcode Phone Number [facility] [address] [place] [phone] [place] Urine culture (11/14/2017 6:19 AM CDT) Result >100,000 col/mL skin valentino [facility] Specimen Urine - Urine, Clean Catch Performing Organization Address [facility] Centercode Phone Number [facility] [address] [place] [phone] [place] Blood culture (11/13/2017 11:20 PM CDT)Only the most recent of2 resultswithin the time period is included. Result No growth in 5 days [facility] Specimen Blood - Portacath Performing Organization Address [facility] Centercomi Phone Number [address] [address] [place] ECHOCARDIOGRAM REPORT - SCAN (11/10/2017 1:20 PM CDT) Narrative Performed At Comprehensive metabolic panel (11/10/2017 5:56 AM CDT)Only the most recent of4 resultswithin the time period is included. Protein, Total 8.2 6.0 - 8.3 gm/dL [facility] Albumin 3.1 (L) 3.5 - 5.0 g/dL [facility] Alkaline Phosphatase 154 (H) 40 - 150 U/L [facility] Total Bilirubin 1.4 (H) 0.2 - 1.2 mg/dL [facility] Sodium 140 136 - 145 meq/L [facility] Potassium 4.0 3.5 - 5.1 meq/L [facility] Chloride 109 (H) 98 - 107 meq/L [facility] CO2 19 (L) 22 - 29 meq/L [facility] BUN 21 7 - 21 mg/dL [facility] Creatinine 1.27 (H) 0.57 - 1.25 mg/dL [facility] Glucose 122 (H) 70 - 105 mg/dL [facility] Calcium 8.6 8.4 - 10.2 mg/dL [facility] AST 72 (H) 5 - 34 U/L [facility] ALT 50 6 - 55 U/L [facility] EGFR 57Comment: ESTIMATED GFR mL/min/1.73 sq m [facility] IS NOT ACCURATE [facility] CREATININE CLEARANCE IN PREDICTING GLOMERULAR FILTRATION RATE. ESTIMATED GFR IS NOT APPLICABLE FOR DIALYSIS PATIENTS. Specimen Blood - Central Venous Line Performing Organization Address City/State/Zipcode Phone Number [place] [phone] [place] [address] CENTER 2D Echo W/Doppler(CW/PW/Color) (11/09/2017 6:46 PM CDT) Ejection Fraction [facility] ECHO [facility] Narrative Performed At Transthoracic Echocardiography Report (TTE) [facility]CHO [facility] Demographics Patient NameSMITH, ALEESHIADate of Study11/09/2017 DIANA Gender Female Visit [id number] Race Black [id number] Number Date of 1980 [facility] Physician Age 37 year(s) SonographerMantione Price RDCS [facility]preting [facility] Needs to be Pre PhysicianLisette Maldonado MD FellowVANNA Lorenzana Procedure Type of [...] normal (female - LVED vol - 29-61ml/m2). Lars rderline concentric LV hypertrophy. Al l of the LV segments contract normally . Gl obal LV systolic function normal . LV EF by Stanley's method of disk assessment is no rmal (60%) . LV diastolic function is indeterminate. Left AtriumLA size is mildly enlarged (35-41 ml/m2) . Right VentricleRV chamber size is normal . Gl obal RV systolic function is normal . Right Atrium RA size is mildly dilated. Aortic Valve Normal AoV structure and function. Mitral Valve Normal MV structure and function. Tricuspid ValveModerate tricuspid regurgitation. Es timated peak systolic PA pressure is 50-55 mmHg . Pulmonic Valve PV is not well visualized. A trace of pulmonary regurgitation. AortaAortic root size (SInus of Valsalva diameter) is no rmal . PericardiumNo significant pericardial effusion is visualized. IVC/SVC/PA/PV/PleuralThe estimated RA pressure by IVC dynamics 16-20mmHg . Chambers/Structures Left Atrium LA Volume: 65.17 ml LA Area: 22.65 cm^2 LA Vol. Index: 37 ml/m^2 Left Ventricle LVIDd: 5.09 cm LVIDs: 3.2 cm LV Septum Diastolic: 1.17 cm LV PW Diastolic: 1.06 cmLV FS: 37.1 % LVEDV Stanley's:102.27 ml LVESV Stanley's:40.53 mlLVEDVI: 58 ml/m^2 LVEF Stanley's: 60.4 %LVESV I: 23 ml/m^2 LVOT Diameter: 1.95 cm Doppler/Quantitative [...] Study 11/09/2017 DIANA Gender Female Visit Number [id number] Race Black Room Number [id number] Number Date of 1980 Referring Neal Lezama Physician Age 37 year(s) Data Miner Lou Melhem RDCS Interpreting [facility] Needs to be Pre [...] Velocity: 2.91 m/s TR Gradient: 33.98 mmHg [facility] Organization Address City/State/Zipcode Phone Number [facility] ECHO [facility] CPACS XR chest 1 view portable / bedside (11/08/2017 7:20 PM CDT) Narrative Performed At FINAL REPORT [facility] EXAMINATION:AP PORTABLE CHEST RADIOGRAPH CLINICAL INDICATION: Pulmonary [...] MD Report Verified Date/Time:11/08/2017 20:41:24 Reading Location: [address] Reading Room Procedure Note Interface, External [...] Report Verified Date/Time: 11/08/2017 20:41:24 Reading Location: [address] Reading Room Performing Organization Address City/State/Zipcode Phone Number [facility] Sodium, random urine (11/08/2017 5:33 AM CDT) Sodium Urine 65 meq/L [facility] Specimen Urine - Urine, Voided Narrative Performed At [facility] Reference Range: No Normals Performing Organization Address [facility] Phone Number [address] [address] [place] Protein, random urine (11/08/2017 5:33 AM CDT) Protein, Urine 24 (H) 0 - 14 mg/dL [facility] Specimen Urine - Urine, Voided Performing Organization Address [facility] Phone Number [address] [address] [place] Creatinine, random urine (11/08/2017 5:33 AM CDT) Creatinine, Ur 46.0 mg/dL [facility] Specimen Urine - Urine, Voided Narrative Performed At [facility] Reference Range: No Normals Performing Organization Address [facility] Phone Number [address] [address] [phone] [place] Eosinophil smear (11/08/2017 5:33 AM CDT) Eosinophil Smear No EOS seen No EOS seen [facility] Specimen Urine - Urine, Voided Performing Organization Address [facility] Phone Number [address] [place] [address] abdomen/pelvis without iv contrast (11/08/2017 3:01 AM CDT) Narrative Performed At FINAL REPORT [facility] RIS HISTORY : Abdominal pain, unspecified Technique: Multiple [...] MD Report Verified Date/Time:11/08/2017 08:29:54 Reading Location: [facility] Diagnostic Imaging Reading Room - [place] [id number] Procedure Note Interface, External Ris In [...] Report Verified Date/Time: 11/08/2017 08:29:54 Reading Location: [facility] Diagnostic Imaging Reading Room - [place] [address] Performing Organization Address City/State/Zipcode Phone Number [employer] US abdomen complete (11/07/2017 7:27 PM CDT) Narrative Performed At FINAL REPORT [employer] Abdominal ultrasound Clinical History:Abdominal pain Discussion: Sonographic [...] MD Report Verified Date/Time:11/07/2017 19:58:17 Reading Location: [facility] Reading Room Procedure Note Interface, External [...] Report Verified Date/Time: 11/07/2017 19:58:17 Reading Location: [facility] C[facility] Reading Room Performing Organization Address City/State/Zipcode Phone Number GE RIS Lactic acid, venous, whole blood (11/07/2017 3:32 PM CDT) Lactate, Venous 0.9Comment: Specimen 0.5 - 2.2 mmol/L [facility] slightly hemolyzed [facility] Specimen Blood - Central Venous Line Narrative Performed At [facility] CENTER Effective 12/22/2015: Units/Reference Range Change New: 0.5-2.2 mmol/LPrevious: 5-20 mg/dL Performing Organization Address City/State/Zipcode Phone Number [facility] [address] [place] [address] CENTER after 08/14/2017 Insurance Payer Benefit Plan / Group Subscriber ID Type Phone Address [employer] - MEDICARE [employer] HMO xxxxxxxxx MGD CARE Advance Directives For more information, please contact:[address] [phone] Code Status Date Activated Date Inactivated Comments Full Code 01/29/2018 3:26 PM 02/08/2018 7:05 PM This code status was determined by: Patient Full Code 11/04/2017 10:49 PM 11/27/2017 12:21 AM This code status was determined by: Patient Full Code 05/27/2017 8:20 PM 06/06/2017 8:23 PM This code status was determined by: Patient Full Code 09/03/2016 1:52 PM 09/15/2016 6:36 PM This code status was determined by: Patient Full Code 03/29/2016 3:02 AM 04/06/2016 8:47 PM This code status was determined by: Patient
--- OUTSIDE RECORDS SUMMARY | 2018-08-15 10:38 | XMS REPORT | Continuity of Care Document ---
:1980 Author Organization Interface Problems Problem Status Onset Classification Date Comments Source Date Reported SICKLE CELL CRISIS Active 09/08/[address] Final: 09/13/2014 [facility] Aplastic anemia Resolved Problem 09/13/2014 [facility] CVA - Resolved Problem 09/13/2014 [facility] Cerebrovascular [facility] accident Center Sickle cell anemia Resolved Problem 09/13/2014 [facility] TIA Resolved Problem 09/13/2014 [facility] HB-SS DISEASE W Active [facility] Medications Medication Details Route Status Patient Ordering Order Source Instructions Provider Date 12 HR Oxymorphone 30 mg=1 tab, Active [facility] Hydrochloride 30 PO, Q12H, 0 2014 Medical MG Extended Refill(s) Center Release Tablet [Opana] Lovenox 40 mg, 0.4 mL, No Longer [facility] Route: SUB-Q, Active 2014 Medical Drug form: INJ, Center [id number], Dosing Weight 70.591, kg, Start date: 09/10/14 19:00:00, Duration: 30 day, Stop date: 10/09/14 19:00:00Notes: (Same as: Lovenox) Promethazine 12.5 mg, 0.5 No Longer [facility] mL, Route: Active 2014 Medical IVPB, Drug Center form: INJ, Q4H, Dosing Weight 70.591, kg, PRN Nausea & Vomiting, Start date: 09/10/14 17:52:00, Duration: 30 day, Stop date: 10/10/14 17:51:00Notes: Do not give IV push. (Same as: Phenergan) Hydromorphone 15 mg, 30 mL, No Longer [facility] Route: IV, Active 2014 Medical Initial Loading Center Dose: 0.4mg, [employer] Dose: 0.2 mg, [employer] Lockout: 10 minutes, Continuous Basal Rate: 0 mg, 4 Hour Limit (In MG): 3, Drug Form: INJ, Continuous, Start date: 09/10/14 11:00:00, Duration: 30 day, Stop date: 10/10/14 10:...Notes: (Same as: Dilaudid) conc=0.5 mg/ml Hydromorphone [employer] Dose: ;Delay: ;Basal: Naloxone 0.04 mg, 0.1 [...] Drug 2015 Medical MG/ML Topical form: CRM, [place] Cream [Benadryl] Start date: 09/09/14 3:43:00, Stop [...] Source type Reported morphine Assertion Drug Active [facility] [place] Stadol Assertion Drug Active [facility] [place] Toradol Assertion Drug Active [facility] [place] traMADol Assertion Drug Active [facility] [place] Zofran Assertion Drug Active [facility] [place] Immunizations Immunization Date Given Site Status Last Updated Comments Source Results Order Name Results Value Reference Date Interpretation Comments Source Range CHEM PANEL LDH 507 unit/L 98 - 192 09/11 [facility] ELECTROLYTE AGAP 10.8 meq/L 10.0 - 09/11 [facility] S 20.0 [facility] ELECTROLYTE Calcium Lvl 8.4 mg/dL 8.5 - 10.5 09/11 [facility] ELECTROLYTE CO2 27 meq/L 24 - 32 09/11 [facility] ELECTROLYTE Chloride Lvl 108 meq/L 95 - 109 09/11 [facility] ELECTROLYTE eGFR 130 09/11 3Result Comment: The eGFR is calculated using the CKD-EPI formula. In most young, healthy individuals the eGFR will be > 90 mL/min/1.73m2. The eGFR declines with age. An eGFR of 60-89 may be normal in [facility] mL/min/1.73 some populations, particularly the elderly, for whom the CKD-EPI formula has not been extensively validated. Use of the eGFR is not recommended in the following populations: [place] [address] Center Individuals with unstable creatinine concentrations, including [...] BMI. ELECTROLYTE BUN 4 mg/dL - 09/11 [facility] ELECTROLYTE Glucose Lvl 82 mg/dL 70 - 99 09/11 6Interpretive Data: Adult reference range values reflect the clinical guidelines [facility] of the [employer]. [facility] ELECTROLYTE Sodium Lvl 142 meq/L 135 - 145 09/11 [facility] ELECTROLYTE Creatinine 0.7 mg/dL 0.5 - 1.4 09/11 [facility] ELECTROLYTE Potassium 3.8 meq/L 3.5 - 5.1 09/11 [facility] HEMATOLOGY Retic Auto 16.5 % 0.5 - 1.5 09/11 [facility] HEMATOLOGY RDW 25.5 % 11.5 - 09/11 [facility] 14. [facility] HEMATOLOGY MPV 8.6 fL 7.4 - 10.4 09/11 [facility] HEMATOLOGY Platelet 213 K/CMM 133 - 450 09/11 [place] /2014 [facility] HEMATOLOGY Hct 19.8 % 36.0 - 09/11 [place] 48.0 /2014 [facility] HEMATOLOGY Hgb 6.7 g/dL 12.0 - 09/11 9Result [place] 16.0 /2014 Comment: [facility] Critical Center Result(s) called to Lexi Hendrix at 09/11/2014 03:23 by ORDAZ. Read back OK. HEMATOLOGY MCV 97.9 fL 80.0 - 09/11 [place] 98.0 /2014 [facility] HEMATOLOGY MCHC 34.0 g/dL 32.0 - 09/11 [place] 36.0 /2014 [facility] HEMATOLOGY MCH 33.3 pg 27.0 - 09/11 [place] 31.0 /2014 [facility] HEMATOLOGY WBC X 10x3 14.1 K/CMM 3.7 - 10.4 09/11 /2014 [facility] HEMATOLOGY RBC X 10x6 2.02 M/CMM 4.20 - 09/11 [place] 5.40 /2014 [facility] BLOOD BANK Antibody Positive 1 09/10 1Result Comment: 09/10/2014 09:24 [id number] [facility] RESULTS Scrn "Significant Findings of Positive Antibody Screen called to Magan Stinson at 0920 by SI. Read Back OK" Medical (09/10/14 8:01 AM) [place] BLOOD BANK ABO/Rh O POS 09/10 [place] RESULTS [facility] BLOOD BANK Path MEGHAN This 09/10 [facility] RESULTS patient Medical a positive [place] Direct Antiglobuli n Test (MEGHAN) with IgG [...] and concur with the resident's interpretat ion.CPT: 49386-EM BLOOD BANK Path AB Current 09/10 [facility] RESULTS testing Medical shows the Center [...] and concur with the resident's interpretat ion.CPT: 51804-PV BLOOD BANK HX Antigen Le(a) neg 09/10 RESULTS /2014 [facility] BLOOD BANK HX Antigen Jk(b) pos 09/10 RESULTS /2014 [facility] BLOOD BANK HX Antigen K neg 09/10 RESULTS /2014 [facility] BLOOD BANK HX Antigen Jk(a) pos 09/10 RESULTS /2014 [facility] BLOOD BANK HX Antigen Fy(b) neg 09/10 RESULTS /2014 Medical Center BLOOD BANK HX Antigen Fy(a) pos 09/10 [place] RESULTS /2014 [facility] Center BLOOD BANK HX Antigen C pos 09/10 [place] RESULTS /2014 [facility] Center BLOOD BANK HX Antigen E neg 09/10 [place] RESULTS /2014 [facility] Center BLOOD BANK HX Antigen Cw neg 09/10 [place] RESULTS /2014 [facility] Center BLOOD BANK HX Antigen M pos 09/10 [place] RESULTS /2014 [facility] Center BLOOD BANK HX Antigen s pos 09/10 [place] RESULTS /2014 [facility] Center BLOOD BANK HX Antigen c neg 09/10 [place] RESULTS /2014 [facility] Center BLOOD BANK HX Antigen N neg 09/10 [place] RESULTS /2014 [facility] Center BLOOD BANK HX Antigen P1 pos 09/10 [place] RESULTS /2014 [facility] Center BLOOD BANK HX Antigen S neg 09/10 [place] RESULTS /2014 [facility] Center BLOOD BANK HX Antigen Le(b) neg 09/10 [place] RESULTS /2014 [facility] Center BLOOD BANK HISTORICAL Anti-S 09/10 [place] RESULTS AB [facility] BLOOD BANK HISTORICAL Anti-Bg(a) 09/10 [place] RESULTS AB [facility] Center BLOOD BANK HISTORICAL Anti-Cw 09/10 [place] RESULTS AB [facility] Center BLOOD BANK C3 Int Negative 09/10 [place] RESULTS /2014 Medical (09/10/14 8:01 AM) Center BLOOD BANK [place] Int See Note 09/10 2Result Comment: 09/10/2014 12:56 TIMARTI2 [place] non reactive with all cells tested. [facility] BLOOD BANK MEGHAN Gel Int Positive 09/10 [place] RESULTS [facility] (09/10/14 8:01 AM) Center BLOOD BANK AB Int Anti-E 09/10 [place] RESULTS [facility] BLOOD BANK AB Int Anti-c 09/10 [place] RESULTS /2014 [facility] HEMATOLOGY Hgb 6.3 g/dL 12.0 - 09/10 10Result [place] 16.0 2015 Comment: Medical Critical Center Result(s) called to JB LONDONO at _09/10/2014 07:45 byMK_. Read back OK. CHEM PANEL LDH 496 unit/L 98 - 192 09/10 [place] /2014 [facility] Center ELECTROLYTE AGAP 11.8 meq/L 10.0 - 09/10 [place] S 20.0 /2015 [facility] Center ELECTROLYTE eGFR 137 09/10 4Result Comment: The eGFR is calculated using the CKD-EPI formula. In most young, healthy individuals the eGFR will be > 90 mL/min/1.73m2. The eGFR declines with age. An eGFR of 60-89 may be normal in [facility] mL/min/1.73 some populations, particularly the elderly, [...] Lvl 8.3 mg/dL 8.5 - 10.5 09/10 [facility] ELECTROLYTE Chloride Lvl 113 meq/L 95 - 109 09/10 [facility] ELECTROLYTE Sodium Lvl 144 meq/L 135 - 145 09/10 [facility] ELECTROLYTE Glucose Lvl 81 mg/dL 70 - 99 09/10 7Interpretive Data: Adult reference range values reflect the clinical guidelines [facility] of [employer] [place] [employer]. [facility] ELECTROLYTE BUN 4 mg/dL 7 - 22 09/10 [facility] ELECTROLYTE Creatinine 0.6 mg/dL 0.5 - 1.4 09/10 [facility] ELECTROLYTE CO2 23 meq/L 24 - 32 09/10 [facility] ELECTROLYTE Potassium 3.8 meq/L 3.5 - 5.1 09/10 [facility] HEMATOLOGY Hgb 6.2 g/dL 12.0 - 09/10 11Result [facility] 16.0 Comment: Medical Critical Center Result(s) called to Amy Fraga at 09/10/2014 06:07 by negrita. Read back OK. HEMATOLOGY WBC 15.9 K/CMM 3.7 - 10.4 09/10 [facility] HEMATOLOGY RBC 1.85 M/CMM 4.20 - 09/10 [facility] 5.40 /2014 [facility] HEMATOLOGY Hct 18.2 % 36.0 - 09/10 [facility] 48.0 [facility] HEMATOLOGY MCV 98.3 fL 80.0 - 09/10 [facility] 98.0 [facility] HEMATOLOGY RDW 25.4 % 11.5 - 09/10 [facility] 14.5 [facility] HEMATOLOGY Platelet 190 K/CMM 133 - 450 09/10 [facility] HEMATOLOGY MCH 33.6 pg 27.0 - 09/10 [facility] 31.0 [facility] HEMATOLOGY MCHC 34.2 g/dL 32.0 - 09/10 36.0 [facility] HEMATOLOGY MPV 8.5 fL 7.4 - 10.4 09/10 [facility] HEMATOLOGY Retic Auto 15.8 % 0.5 - 1.5 09/10 [facility] ELECTROLYTE AGAP 13.7 meq/L 10.0 - 09/09 [facility] S 20.0 [facility] ELECTROLYTE eGFR 96 09/09 5Result Comment: The eGFR is calculated using the CKD-EPI formula. In most young, healthy individuals the eGFR will be > 90 mL/min/1.73m2. The eGFR declines with age. An eGFR of 60-89 may be normal in [facility] mL/min/1.73 some populations, particularly the elderly, for whom the CKD-EPI formula has not been extensively validated. Use of the eGFR is not recommended in the following populations: [place] [address] Center Individuals with unstable creatinine concentrations, including [...] Lvl 9.1 mg/dL 8.5 - 10.5 09/09 [facility] ELECTROLYTE Potassium 3.7 meq/L 3.5 - 5.1 09/09 [facility] ELECTROLYTE Sodium Lvl 142 meq/L 135 - 145 09/09 [facility] ELECTROLYTE Glucose Lvl 106 mg/dL 70 - 99 09/09 8Interpretive Data: Adult reference range values reflect the clinical guidelines [facility] of [employer] [employer]. [facility] ELECTROLYTE Creatinine 0.9 mg/dL 0.5 - 1.4 09/09 [facility] ELECTROLYTE BUN 6 mg/dL 7 - 22 09/09 [facility]2015 [facility] ELECTROLYTE CO2 26 meq/L 24 - 32 09/09 [facility] S /2014 [facility] ELECTROLYTE Chloride Lvl 106 meq/L 95 - 109 09/09 [facility]2014 [facility] HEMATOLOGY Sickle Cell Slight 09/09 [facility]2014 [facility] HEMATOLOGY Schistocyte 1-3 per HPF None Seen 09/09 [facility] (09/09/14 2:13 AM) [place] HEMATOLOGY Tear Cell Slight 09/09 [facility]2014 [facility] HEMATOLOGY Target Cell Moderate None Seen 09/[address] [facility]* [place] (09/09/14 2:13 AM) HEMATOLOGY Polychrom Slight 09/[address] HEMATOLOGY Plt Morph Normal 09/09 [facility] (09/09/14 2:13 AM) [place] HEMATOLOGY Tot Cell Ct 100 09/[address] HEMATOLOGY Bands 0.0 % 0.0 - 11.0 09/[address] HEMATOLOGY Segs 49.0 % 45.0 - 09/09 [facility] 75.0 [facility] HEMATOLOGY Macrocyte 1+ None Seen 09/[address] [facility]* [place] (09/09/14 2:13 AM) HEMATOLOGY Anisocyte 1+ None Seen 09/09 [facility] [place] (09/09/14 2:13 AM) HEMATOLOGY NRBC 2 /100WB 09/[address] HEMATOLOGY Atypical 0.0 % <=0.0 % 09/09 [facility] Lymph [facility] HEMATOLOGY Eosinophils 3.0 % 0.0 - 4.0 09/[address] HEMATOLOGY Monocytes 14.0 % 2.0 - 12.0 09/[address] HEMATOLOGY Lymphocytes 34.0 % 20.0 - 09/09 [facility] 40.0 [facility] HEMATOLOGY Eosinophils 0.6 K/CMM 0.0 - 0.5 09/09 [facility]2014 [facility] HEMATOLOGY Monocytes # 2.7 K/CMM 0.0 - 0.8 09/[address] HEMATOLOGY Lymphocytes 6.5 K/CMM 1.0 - 5.5 09/09 [facility] /[address] [place] [address] HEMATOLOGY Segs-Bands # 9.3 K/CMM 1.5 - 8.1 09/[address] HEMATOLOGY Retic Auto 16.6 % 0.5 - 1.5 09/09 [facility] HEMATOLOGY MPV 8.3 fL 7.4 - 10.4 09/09 [facility] HEMATOLOGY RDW 25.8 % 11.5 - 09/09 14.5 [facility] HEMATOLOGY MCHC 34.3 g/dL 32.0 - 09/09 [place] 36.0 [facility] HEMATOLOGY Platelet 220 K/CMM 133 - 450 09/09 [facility] HEMATOLOGY MCV 99.8 fL 80.0 - 09/09 98.0 /2014 [facility] HEMATOLOGY Hct 22.7 % 36.0 - 09/09 48.0 [facility] HEMATOLOGY MCH 34.2 pg 27.0 - 09/09 31.0 [facility] HEMATOLOGY WBC 19.0 K/CMM 3.7 - 10.4 09/09 [facility] HEMATOLOGY RBC 2.28 M/CMM 4.20 - 09/09 [facility] 5.40 /2014 [facility] Vital Signs Vital Sign Value Date Comments Source Respitory Rate 18 09/12/2014 [facility] Systolic (mm Hg) 120 09/12/2014 [facility] Heart Rate 80 09/12/2014 [facility] Diastolic (mm Hg) 80 09/12/2014 [facility] Temperature Oral (F) 98.0 F 09/12/2014 [facility] Diastolic (mm Hg) 82 09/11/2014 [facility] Respitory Rate 18 09/11/2014 [facility] Systolic (mm Hg) 132 09/11/2014 [facility] Heart Rate 82 09/11/2014 [facility] Temperature Oral (F) 98.4 F 09/11/2014 [facility] Respitory Rate 16 09/11/2014 [facility] Heart Rate 86 09/11/2014 [facility] Systolic (mm Hg) 120 09/11/2014 [facility] Diastolic (mm Hg) 86 09/11/2014 [facility] Temperature Oral (F) 98.1 F 09/11/2014 [facility] Weight 70.591 09/10/2014 [facility] Weight 68.182 09/09/2014 [facility] BMI Calculated 26.63 09/09/2014 [facility] Height 160.02 cm 09/09/2014 [facility] Weight 70 09/09/2014 [facility] Height 160.02 cm 09/09/2014 [facility] BMI Calculated 27.34 09/09/2014 [facility] Encounters Location Location Encounter Encounter Reason Attending ADM DC Status Source Details Type Number For Provider Date Date Visit [facility] [id number] Josiane 09/09 09/12 [facility] Roly Randhawaon /2014 [facility] ([place], [place]) Procedures Procedure Code Date Perfomer Comments Source
--- OUTSIDE RECORDS SUMMARY | 2018-08-15 10:42 | XMS REPORT ---
:1980 [facility] Address [address] [place] [address] Dr. Iraheta [address] [place] [id number] Care Team Providers Name Role Phone YANA [...] Comments WHITE BLOOD CELL COUNT (BEAKER) (test tnun=460) 14.3 K/ L 3.5-10.5 RED BLOOD CELL COUNT (BEAKER) (test grcy=701) 2.54 M/ L 3.93-5.22 HEMOGLOBIN (BEAKER) (test gxmf=264) 7.3 GM/DL 11.2-15.7 HEMATOCRIT (BEAKER) (test vuqs=497) 23.4 % 34.1-44.9 MEAN CORPUSCULAR VOLUME (BEAKER) (test ywpq=795) 92.1 fL 79.4-94.8 MEAN CORPUSCULAR HEMOGLOBIN (BEAKER) (test agko=200) 28.7 pg 25.6-32.2 MEAN CORPUSCULAR HEMOGLOBIN CONC (BEAKER) (test ozmh=993) 31.2 GM/DL 32.2- 35.5 RED CELL DISTRIBUTION WIDTH (BEAKER) (test xcxq=901) 21.4 % 11.7-14.4 PLATELET COUNT (BEAKER) (test vwrs=339) 239 K/CU MM 150-450 MEAN PLATELET VOLUME (BEAKER) (test omro=094) 11.0 fL 9.4-12.3 NUCLEATED RED BLOOD CELLS (BEAKER) (test pixg=309) 4 /100 WBC 0-0 (CELLAVISION MANUAL DIFF)2018-02-08 12:02:00 Test Item Value Reference Range Comments NEUTROPHILS - REL (CELLAVISION)(BEAKER) (test 66 % heht=0176) LYMPHOCYTES - REL (CELLAVISION)(BEAKER) (test 22 % oscn=6710) MONOCYTES - REL (CELLAVISION)(BEAKER) (test 8 % qiaa=5258) EOSINOPHILS - REL (CELLAVISION)(BEAKER) (test 3 % irir=8974) NEUTROPHILS - ABS (CELLAVISION)(BEAKER) (test 9.44 K/ul 1.56-6.13 pugd=2379) LYMPHOCYTES - ABS (CELLAVISION)(BEAKER) (test 3.15 K/ul 1.18-3.74 vcej=4497) MONOCYTES - ABS (CELLAVISION)(BEAKER) (test 1.14 K/uL 0.24-0.36 mxrq=0516) EOSINOPHILS - ABS (CELLAVISION)(BEAKER) (test 0.43 K/uL 0.04-0.36 pmem=5546) TOTAL COUNTED (BEAKER) (test zojo=7512) 100 MANUAL NRBC PER 100 CELLS (BEAKER) (test 5 /100 WBC 0-0 zucq=5817) WBC MORPHOLOGY (BEAKER) (test ybzq=760) Normal PLT MORPHOLOGY (BEAKER) (test nvgc=228) Normal ANISOCYTOSIS (BEAKER) (test omyz=986) 2+ moderate MACROCYTES (BEAKER) (test exhn=213) 1+ few TARGET CELLS (BEAKER) (test kcym=145) 1+ few SICKLE CELLS (BEAKER) (test yyio=788) 1+ few MATTHEWS-JOLLY BODIES (BEAKER) (test sbcf=859) 1+ few ARTIFACT (CELLAVISION)(BEAKER) (test xgfg=6231) Present PLATELET CONCENTRATION (CELLAVISION)(BEAKER) Adequate (test yrbx=2253) Received comment: User comments: Slide comments:BASIC METABOLIC [id number] 06:09:00 Test Item Value Reference Range Comments SODIUM (BEAKER) (test 138 meq/L 136-145 snom=343) POTASSIUM (BEAKER) (test 5.9 meq/L 3.5-5.1 smrl=879) CHLORIDE (BEAKER) (test 102 meq/L 98-107 gncz=667) CO2 (BEAKER) (test 30 meq/L 22-29 pkts=887) BLOOD UREA NITROGEN 15 mg/dL 7-21 (BEAKER) (test hehr=639) CREATININE (BEAKER) (test 0.68 mg/dL 0.57-1.25 qksb=178) GLUCOSE RANDOM (BEAKER) 87 mg/dL 70-105 (test yjdn=858) CALCIUM (BEAKER) (test 9.6 mg/dL 8.4-10.2 fnss=010) EGFR (BEAKER) (test 117 mL/min/1.73 sq m ESTIMATED GFR IS NOT leyq=0078) ACCURATE CREATININE CLEARANCE IN PREDICTING GLOMERULAR FILTRATION RATE. ESTIMATED GFR IS NOT APPLICABLE FOR DIALYSIS PATIENTS. (CELLAVISION MANUAL DIFF)2018-02-07 13:34:00 Test Item Value Reference Range Comments NEUTROPHILS - REL (CELLAVISION)(BEAKER) (test 68 % hxtv=3331) LYMPHOCYTES - REL (CELLAVISION)(BEAKER) (test 24 % uzsj=5561) MONOCYTES - REL (CELLAVISION)(BEAKER) (test 7 % vulo=7057) EOSINOPHILS - REL (CELLAVISION)(BEAKER) (test 1 % ottu=2852) NEUTROPHILS - ABS (CELLAVISION)(BEAKER) (test 9.66 K/ul 1.56-6.13 wtei=1431) LYMPHOCYTES - ABS (CELLAVISION)(BEAKER) (test 3.41 K/ul 1.18-3.74 pufo=5656) MONOCYTES - ABS (CELLAVISION)(BEAKER) (test 0.99 K/uL 0.24-0.36 xruj=1086) EOSINOPHILS - ABS (CELLAVISION)(BEAKER) (test 0.14 K/uL 0.04-0.36 wsvp=9471) TOTAL COUNTED (BEAKER) (test zlce=6568) 100 MANUAL NRBC PER 100 CELLS (BEAKER) (test 15 /100 WBC 0-0 njoh=3188) WBC MORPHOLOGY (BEAKER) (test ezns=288) Normal LARGE PLT(BEAKER) (test uzkg=6376) Present POLYCHROMATOPHILLIC RBCS(BEAKER) (test tyva=297) 2+ moderate HYPOCHROMIA (BEAKER) (test jmic=250) 1+ few TARGET CELLS (BEAKER) (test icvm=920) 2+ moderate SICKLE CELLS (BEAKER) (test rypj=873) 1+ few MATTHEWS-JOLLY BODIES (BEAKER) (test bjfo=883) 1+ few ARTIFACT (CELLAVISION)(BEAKER) (test rkrm=4239) Present PLATELET CONCENTRATION (CELLAVISION)(BEAKER) Adequate (test tgxb=5224) Received comment: User comments: Slide comments:CBC W/PLT COUNT & AUTO [id number] 13:33:00 Test Item Value Reference Range Comments WHITE BLOOD CELL COUNT (BEAKER) (test kbju=027) 14.2 K/ L 3.5-10.5 RED BLOOD CELL COUNT (BEAKER) (test zldi=784) 2.68 M/ L 3.93-5.22 HEMOGLOBIN (BEAKER) (test gsyx=446) 7.7 GM/DL 11.2-15.7 HEMATOCRIT (BEAKER) (test lasr=647) 24.5 % 34.1-44.9 MEAN CORPUSCULAR VOLUME (BEAKER) (test avzf=449) 91.4 fL 79.4-94.8 MEAN CORPUSCULAR HEMOGLOBIN (BEAKER) (test 28.7 pg 25.6-32.2 dvws=004) MEAN CORPUSCULAR HEMOGLOBIN CONC (BEAKER) (test 31.4 GM/DL 32.2-35.5 wkcc=643) RED CELL DISTRIBUTION WIDTH (BEAKER) (test 21.2 % 11.7-14.4 soxn=670) PLATELET COUNT (BEAKER) (test qfug=923) 257 K/CU MM 150-450 MEAN PLATELET VOLUME (BEAKER) (test suxf=769) 11.4 fL 9.4-12.3 NUCLEATED RED BLOOD CELLS (BEAKER) (test 6 /100 WBC 0-0 evoi=468) BASIC METABOLIC [id number] 07:19:00 Test Item Value Reference Range Comments SODIUM (BEAKER) (test 138 meq/L 136-145 kkwt=422) POTASSIUM (BEAKER) (test 5.3 meq/L 3.5-5.1 kxat=623) CHLORIDE (BEAKER) (test 98 meq/L 98-107 pvwq=755) CO2 (BEAKER) (test 34 meq/L 22-29 hcxw=612) BLOOD UREA NITROGEN 16 mg/dL 7-21 (BEAKER) (test ifpa=918) CREATININE (BEAKER) (test 0.66 mg/dL 0.57-1.25 qbwj=137) GLUCOSE RANDOM (BEAKER) 90 mg/dL 70-105 (test ubkk=235) CALCIUM (BEAKER) (test 9.8 mg/dL 8.4-10.2 cxdh=273) EGFR (BEAKER) (test 121 mL/min/1.73 sq m ESTIMATED GFR IS NOT mvho=2728) ACCURATE CREATININE CLEARANCE IN PREDICTING GLOMERULAR FILTRATION RATE. ESTIMATED GFR IS NOT APPLICABLE FOR DIALYSIS PATIENTS. CBC W/PLT COUNT & AUTO [id number] 14:36:00 Test Item Value Reference Range Comments WHITE BLOOD CELL COUNT (BEAKER) (test gxau=931) 12.9 K/ L 3.5-10.5 RED BLOOD CELL COUNT (BEAKER) (test jspw=082) 2.54 M/ L 3.93-5.22 HEMOGLOBIN (BEAKER) (test malo=640) 7.4 GM/DL 11.2-15.7 HEMATOCRIT (BEAKER) (test egjh=456) 22.9 % 34.1-44.9 MEAN CORPUSCULAR VOLUME (BEAKER) (test midk=438) 90.2 fL 79.4-94.8 MEAN CORPUSCULAR HEMOGLOBIN (BEAKER) (test 29.1 pg 25.6-32.2 llhu=345) MEAN CORPUSCULAR HEMOGLOBIN CONC (BEAKER) (test 32.3 GM/DL 32.2-35.5 iobd=221) RED CELL DISTRIBUTION WIDTH (BEAKER) (test 21.2 % 11.7-14.4 xccc=994) PLATELET COUNT (BEAKER) (test wvek=580) 251 K/CU MM 150-450 MEAN PLATELET VOLUME (BEAKER) (test alnq=536) 10.8 fL 9.4-12.3 NUCLEATED RED BLOOD CELLS (BEAKER) (test 7 /100 WBC 0-0 ycbw=152) (MANUAL DIFFERENTIAL)2018-02-06 14:36:00 Test Item Value Reference Range Comments NEUTROPHILS - REL (DIFF) (BEAKER) (test 64 % voxb=5483) LYMPHOCYTES - REL (DIFF) (BEAKER) (test 22 % qpyf=0990) MONOCYTES - REL (DIFF) (BEAKER) (test spos=4082) 8 % EOSINOPHILS - REL (DIFF) (BEAKER) (test 6 % upae=1691) BASOPHILS - REL (DIFF) (BEAKER) (test ovyz=6778) 0 % NEUTROPHILS - ABS (DIFF) (BEAKER) (test 8.26 K/ L 1.80-8.00 gcrq=4363) LYMPHOCYTES - ABS (DIFF) (BEAKER) (test 2.84 K/ L 1.48-4.50 jtts=6166) MONOCYTES - ABS (DIFF) (BEAKER) (test unsc=7078) 1.03 K/ L 0.00-1.30 EOSINOPHILS - ABS (DIFF) (BEAKER) (test 0.77 K/ L 0.00-0.50 pavl=2069) BASOPHILS - ABS (DIFF) (BEAKER) (test pzbv=5818) 0.00 K/ L 0.00-0.20 TOTAL COUNTED (BEAKER) (test pudh=8685) 100 MANUAL NRBC PER 100 CELLS (BEAKER) (test 8 /100 WBC 0-0 tqiy=7768) WBC MORPHOLOGY (BEAKER) (test ldhj=865) Normal PLT MORPHOLOGY (BEAKER) (test atro=655) Normal ANISOCYTOSIS (BEAKER) (test hvtm=030) 2+ moderate SICKLE CELLS (BEAKER) (test xesd=933) 2+ moderate BASIC METABOLIC [id number] 06:59:00 Test Item Value Reference Range Comments SODIUM (BEAKER) (test 139 meq/L 136-145 gyxx=558) POTASSIUM (BEAKER) (test 4.9 meq/L 3.5-5.1 obim=801) CHLORIDE (BEAKER) (test 100 meq/L 98-107 lsco=092) CO2 (BEAKER) (test 34 meq/L 22-29 pqvr=795) BLOOD UREA NITROGEN 18 mg/dL 7-21 (BEAKER) (test wjsv=736) CREATININE (BEAKER) (test 0.70 mg/dL 0.57-1.25 ftpo=355) GLUCOSE RANDOM (BEAKER) 102 mg/dL 70-105 (test acdz=840) CALCIUM (BEAKER) (test 9.8 mg/dL 8.4-10.2 ccsm=519) EGFR (BEAKER) (test 114 mL/min/1.73 sq m ESTIMATED GFR IS NOT ryce=9680) ACCURATE CREATININE CLEARANCE IN PREDICTING GLOMERULAR FILTRATION RATE. ESTIMATED GFR IS NOT APPLICABLE FOR DIALYSIS PATIENTS. CBC W/PLT COUNT & AUTO [id number] 12:27:00 Test Item Value Reference Range Comments WHITE BLOOD CELL COUNT (BEAKER) (test nzzz=106) 14.2 K/ L 3.5-10.5 RED BLOOD CELL COUNT (BEAKER) (test kmtg=301) 2.55 M/ L 3.93-5.22 HEMOGLOBIN (BEAKER) (test uzod=189) 7.2 GM/DL 11.2-15.7 HEMATOCRIT (BEAKER) (test smsj=855) 22.9 % 34.1-44.9 MEAN CORPUSCULAR VOLUME (BEAKER) (test zjnw=465) 89.8 fL 79.4-94.8 MEAN CORPUSCULAR HEMOGLOBIN (BEAKER) (test 28.2 pg 25.6-32.2 xagl=836) MEAN CORPUSCULAR HEMOGLOBIN CONC (BEAKER) (test 31.4 GM/DL 32.2-35.5 omxh=521) RED CELL DISTRIBUTION WIDTH (BEAKER) (test 20.7 % 11.7-14.4 lceb=150) PLATELET COUNT (BEAKER) (test adlv=515) 261 K/CU MM 150-450 MEAN PLATELET VOLUME (BEAKER) (test ajmt=852) 10.7 fL 9.4-12.3 NUCLEATED RED BLOOD CELLS (BEAKER) (test 5 /100 WBC 0-0 nnjm=919) (CELLAVISION MANUAL DIFF)2018-02-05 12:27:00 Test Item Value Reference Range Comments NEUTROPHILS - REL (CELLAVISION)(BEAKER) (test 67 % vjvb=7345) LYMPHOCYTES - REL (CELLAVISION)(BEAKER) (test 17 % qnlq=3675) MONOCYTES - REL (CELLAVISION)(BEAKER) (test 6 % evrv=9049) EOSINOPHILS - REL (CELLAVISION)(BEAKER) (test 4 % vetr=8930) PROMYELOCYTES - REL (CELLAVSION)(BEAKER) (test 5 % 0-0 tjqc=0095) ATYPICAL LYMPHOCYTES - REL (CELLAVISION)(BEAKER) 1 % 0-0 (test lans=2893) NEUTROPHILS - ABS (CELLAVISION)(BEAKER) (test 9.51 K/ul 1.56-6.13 lkss=7948) LYMPHOCYTES - ABS (CELLAVISION)(BEAKER) (test 2.41 K/ul 1.18-3.74 rvjp=2297) MONOCYTES - ABS (CELLAVISION)(BEAKER) (test 0.85 K/uL 0.24-0.36 wpkn=5141) EOSINOPHILS - ABS (CELLAVISION)(BEAKER) (test 0.57 K/uL 0.04-0.36 nevg=1537) PROMYELOCYTES - ABS (CELLAVISION)(BEAKER) (test 0.71 K/uL 0.00-0.00 nhnv=8136) ATYPICAL LYMPHOCYTES - ABS (CELLAVISION)(BEAKER) 0.14 K/uL 0.00-0.00 (test sqhz=8880) TOTAL COUNTED (BEAKER) (test gqmr=0030) 100 MANUAL NRBC PER 100 CELLS (BEAKER) (test 9 /100 WBC 0-0 xduj=0707) WBC MORPHOLOGY (BEAKER) (test rruu=363) Normal LARGE PLT(BEAKER) (test qyxp=2891) Present POLYCHROMATOPHILLIC RBCS(BEAKER) (test qxwn=077) 2+ moderate HYPOCHROMIA (BEAKER) (test kxbh=656) 1+ few TARGET CELLS (BEAKER) (test vzbo=486) 2+ moderate SICKLE CELLS (BEAKER) (test naud=041) 2+ moderate ARTIFACT (CELLAVISION)(BEAKER) (test rykt=3516) Present PLATELET CONCENTRATION (CELLAVISION)(BEAKER) Adequate (test nzxp=0740) Received comment: User comments: Slide comments:BASIC METABOLIC [id number] 07:44:00 Test Item Value Reference Range Comments SODIUM (BEAKER) (test 139 meq/L 136-145 spei=977) POTASSIUM (BEAKER) (test 4.7 meq/L 3.5-5.1 tbus=040) CHLORIDE (BEAKER) (test 100 meq/L 98-107 jcid=662) CO2 (BEAKER) (test 31 meq/L 22-29 iacp=159) BLOOD UREA NITROGEN 14 mg/dL 7-21 (BEAKER) (test atqy=141) CREATININE (BEAKER) (test 0.69 mg/dL 0.57-1.25 pugd=661) GLUCOSE RANDOM (BEAKER) 92 mg/dL 70-105 (test zipx=057) CALCIUM (BEAKER) (test 9.8 mg/dL 8.4-10.2 kajn=917) EGFR (BEAKER) (test 115 mL/min/1.73 sq m ESTIMATED GFR IS NOT umpu=0678) ACCURATE CREATININE CLEARANCE IN PREDICTING GLOMERULAR FILTRATION RATE. ESTIMATED GFR IS NOT APPLICABLE FOR DIALYSIS PATIENTS. CBC W/PLT COUNT & AUTO [id number] 13:29:00 Test Item Value Reference Range Comments WHITE BLOOD CELL COUNT (BEAKER) (test bbcv=066) 17.1 K/ L 3.5-10.5 RED BLOOD CELL COUNT (BEAKER) (test zhhi=991) 2.68 M/ L 3.93-5.22 HEMOGLOBIN (BEAKER) (test ubmj=876) 7.6 GM/DL 11.2-15.7 HEMATOCRIT (BEAKER) (test jmnu=556) 23.3 % 34.1-44.9 MEAN CORPUSCULAR VOLUME (BEAKER) (test pujz=909) 86.9 fL 79.4-94.8 MEAN CORPUSCULAR HEMOGLOBIN (BEAKER) (test 28.4 pg 25.6-32.2 xdry=586) MEAN CORPUSCULAR HEMOGLOBIN CONC (BEAKER) (test 32.6 GM/DL 32.2-35.5 awkk=471) RED CELL DISTRIBUTION WIDTH (BEAKER) (test 20.0 % 11.7-14.4 ohbo=468) PLATELET COUNT (BEAKER) (test glws=633) 252 K/CU MM 150-450 MEAN PLATELET VOLUME (BEAKER) (test lzgz=465) 10.9 fL 9.4-12.3 NUCLEATED RED BLOOD CELLS (BEAKER) (test 4 /100 WBC 0-0 yvyh=536) (CELLAVISION MANUAL DIFF)2018-02-04 13:29:00 Test Item Value Reference Range Comments NEUTROPHILS - REL (CELLAVISION)(BEAKER) (test 61 % ovpw=2896) LYMPHOCYTES - REL (CELLAVISION)(BEAKER) (test 29 % orpf=6244) MONOCYTES - REL (CELLAVISION)(BEAKER) (test 7 % wtcb=8385) EOSINOPHILS - REL (CELLAVISION)(BEAKER) (test 1 % lkbx=7576) BANDS - REL (CELLAVISION)(BEAKER) (test 2 % 0-10 evew=5316) NEUTROPHILS - ABS (CELLAVISION)(BEAKER) (test 10.43 K/ul 1.56-6.13 eseo=5246) LYMPHOCYTES - ABS (CELLAVISION)(BEAKER) (test 4.96 K/ul 1.18-3.74 hzlx=2224) MONOCYTES - ABS (CELLAVISION)(BEAKER) (test 1.20 K/uL 0.24-0.36 hkwf=7544) EOSINOPHILS - ABS (CELLAVISION)(BEAKER) (test 0.17 K/uL 0.04-0.36 ltcg=8431) BANDS - ABS (CELLAVISION)(BEAKER) (test 0.34 K/uL 0.00-0.80 derh=3111) TOTAL COUNTED (BEAKER) (test xoki=1614) 100 MANUAL NRBC PER 100 CELLS (BEAKER) (test 3 /100 WBC 0-0 ljej=3671) SMUDGE CELLS (BEAKER) (test iims=2772) Present GIANT PLATELETS (BEAKER) (test ciyd=608) Present POLYCHROMATOPHILLIC RBCS(BEAKER) (test llgk=250) 3+ many ANISOCYTOSIS (BEAKER) (test qxwb=804) 2+ moderate MICROCYTES (BEAKER) (test azpt=863) 1+ few POIKILOCYTES (BEAKER) (test bdpg=353) 2+ moderate TARGET CELLS (BEAKER) (test esfn=633) 2+ moderate SICKLE CELLS (BEAKER) (test uygp=526) 2+ moderate ARTIFACT (CELLAVISION)(BEAKER) (test dxdx=0372) Present HELMET CELLS (CELLAVISION)(BEAKER) (test 1+ few gftb=5770) PLATELET CONCENTRATION (CELLAVISION)(BEAKER) Adequate (test tpqz=1047) Received comment: User comments: Slide comments:BASIC METABOLIC [id number] 05:38:00 Test Item Value Reference Range Comments SODIUM (BEAKER) (test 140 meq/L 136-145 yioh=886) POTASSIUM (BEAKER) (test 4.6 meq/L 3.5-5.1 qbqt=794) CHLORIDE (BEAKER) (test 104 meq/L 98-107 yghp=324) CO2 (BEAKER) (test 28 meq/L 22-29 opfk=026) BLOOD UREA NITROGEN 18 mg/dL 7-21 (BEAKER) (test aann=827) CREATININE (BEAKER) (test 0.66 mg/dL 0.57-1.25 brzz=005) GLUCOSE RANDOM (BEAKER) 100 mg/dL 70-105 (test uadq=398) CALCIUM (BEAKER) (test 9.5 mg/dL 8.4-10.2 bcqv=062) EGFR (BEAKER) (test 121 mL/min/1.73 sq m ESTIMATED GFR IS NOT nkxj=0620) ACCURATE CREATININE CLEARANCE IN PREDICTING GLOMERULAR FILTRATION RATE. ESTIMATED GFR IS NOT APPLICABLE FOR DIALYSIS PATIENTS. CBC W/PLT COUNT & AUTO [id number] 14:02:00 Test Item Value Reference Range Comments WHITE BLOOD CELL COUNT (BEAKER) (test dday=192) 20.8 K/ L 3.5-10.5 RED BLOOD CELL COUNT (BEAKER) (test hfqk=806) 1.97 M/ L 3.93-5.22 HEMOGLOBIN (BEAKER) (test lwrv=675) 5.9 GM/DL 11.2-15.7 HEMATOCRIT (BEAKER) (test uzad=717) 17.6 % 34.1-44.9 MEAN CORPUSCULAR VOLUME (BEAKER) (test kdlx=055) 89.3 fL 79.4-94.8 MEAN CORPUSCULAR HEMOGLOBIN (BEAKER) (test 29.9 pg 25.6-32.2 ycmp=235) MEAN CORPUSCULAR HEMOGLOBIN CONC (BEAKER) (test 33.5 GM/DL 32.2-35.5 pron=963) RED CELL DISTRIBUTION WIDTH (BEAKER) (test 21.8 % 11.7-14.4 ntcs=963) PLATELET COUNT (BEAKER) (test oeen=587) 290 K/CU MM 150-450 MEAN PLATELET VOLUME (BEAKER) (test vbov=793) 10.7 fL 9.4-12.3 NUCLEATED RED BLOOD CELLS (BEAKER) (test 5 /100 WBC 0-0 fylz=956) NEUTROPHILS RELATIVE PERCENT (BEAKER) (test 66 % tcer=712) LYMPHOCYTES RELATIVE PERCENT (BEAKER) (test 23 % brql=581) MONOCYTES RELATIVE PERCENT (BEAKER) (test 10 % ybsv=958) EOSINOPHILS RELATIVE PERCENT (BEAKER) (test 1 % kedj=456) BASOPHILS RELATIVE PERCENT (BEAKER) (test 0 % dfxa=167) NEUTROPHILS ABSOLUTE COUNT (BEAKER) (test 13.73 K/ L 1.56-6.13 ukho=394) LYMPHOCYTES ABSOLUTE COUNT (BEAKER) (test 4.72 K/ L 1.18-3.74 tnkk=567) MONOCYTES ABSOLUTE COUNT (BEAKER) (test 2.06 K/ L 0.24-0.36 tmyn=235) EOSINOPHILS ABSOLUTE COUNT (BEAKER) (test 0.20 K/ L 0.04-0.36 ghmy=691) BASOPHILS ABSOLUTE COUNT (BEAKER) (test 0.03 K/ L 0.01-0.08 ekvf=584) IMMATURE GRANULOCYTES-RELATIVE PERCENT (BEAKER) 1 % 0-1 (test jasd=8555) (CELLAVISION MANUAL DIFF)2018-02-03 14:02:00 Test Item Value Reference Range Comments TOTAL COUNTED (BEAKER) (test ztvx=8040) WBC MORPHOLOGY (BEAKER) (test icsl=702) Normal PLT MORPHOLOGY (BEAKER) (test xujy=968) Normal POLYCHROMATOPHILLIC RBCS(BEAKER) (test japg=981) 2+ moderate ANISOCYTOSIS (BEAKER) (test vvlq=734) 2+ moderate TARGET CELLS (BEAKER) (test ufyh=915) 2+ moderate SICKLE CELLS (BEAKER) (test kxji=351) 2+ moderate BASIC METABOLIC [id number] 07:22:00 Test Item Value Reference Range Comments SODIUM (BEAKER) (test 140 meq/L 136-145 osvu=256) POTASSIUM (BEAKER) (test 4.9 meq/L 3.5-5.1 bqbz=551) CHLORIDE (BEAKER) (test 105 meq/L 98-107 glhw=586) CO2 (BEAKER) (test 29 meq/L 22-29 esqt=779) BLOOD UREA NITROGEN 20 mg/dL 7-21 (BEAKER) (test wufc=142) CREATININE (BEAKER) (test 0.72 mg/dL 0.57-1.25 hvmw=529) GLUCOSE RANDOM (BEAKER) 100 mg/dL 70-105 (test puob=625) CALCIUM (BEAKER) (test 9.4 mg/dL 8.4-10.2 qrwr=137) EGFR (BEAKER) (test 110 mL/min/1.73 sq m ESTIMATED GFR IS NOT uojn=0858) ACCURATE CREATININE CLEARANCE IN PREDICTING GLOMERULAR FILTRATION RATE. ESTIMATED GFR IS NOT APPLICABLE FOR DIALYSIS PATIENTS. Specimen slightly ictericCBC W/PLT COUNT & AUTO [id number] 06:46 :00 Test Item Value Reference Range Comments WHITE BLOOD CELL COUNT (BEAKER) (test luca=658) 17.0 K/ L 3.5-10.5 RED BLOOD CELL COUNT (BEAKER) (test gapz=798) 2.18 M/ L 3.93-5.22 HEMOGLOBIN (BEAKER) (test xrbb=536) 6.4 GM/DL 11.2-15.7 HEMATOCRIT (BEAKER) (test qzeo=347) 20.3 % 34.1-44.9 MEAN CORPUSCULAR VOLUME (BEAKER) (test ghpt=698) 93.1 fL 79.4-94.8 MEAN CORPUSCULAR HEMOGLOBIN (BEAKER) (test 29.4 pg 25.6-32.2 ickh=800) MEAN CORPUSCULAR HEMOGLOBIN CONC (BEAKER) (test 31.5 GM/DL 32.2-35.5 hcvy=109) RED CELL DISTRIBUTION WIDTH (BEAKER) (test 24.0 % 11.7-14.4 dgvw=359) PLATELET COUNT (BEAKER) (test fbqa=249) 274 K/CU MM 150-450 MEAN PLATELET VOLUME (BEAKER) (test mpye=436) 10.9 fL 9.4-12.3 NUCLEATED RED BLOOD CELLS (BEAKER) (test 13 /100 WBC 0-0 cbtu=144) (CELLAVISION MANUAL DIFF)2018-02-02 06:46:00 Test Item Value Reference Range Comments NEUTROPHILS - REL (CELLAVISION)(BEAKER) (test 72 % ucld=7263) LYMPHOCYTES - REL (CELLAVISION)(BEAKER) (test 20 % mrxa=1824) MONOCYTES - REL (CELLAVISION)(BEAKER) (test 6 % gjhq=3123) EOSINOPHILS - REL (CELLAVISION)(BEAKER) (test 1 % pzuj=6099) BANDS - REL (CELLAVISION)(BEAKER) (test 1 % 0-10 inws=9616) NEUTROPHILS - ABS (CELLAVISION)(BEAKER) (test 12.24 K/ul 1.56-6.13 tzpv=2542) LYMPHOCYTES - ABS (CELLAVISION)(BEAKER) (test 3.40 K/ul 1.18-3.74 mvap=4173) MONOCYTES - ABS (CELLAVISION)(BEAKER) (test 1.02 K/uL 0.24-0.36 jony=6166) EOSINOPHILS - ABS (CELLAVISION)(BEAKER) (test 0.17 K/uL 0.04-0.36 sejl=4591) BANDS - ABS (CELLAVISION)(BEAKER) (test 0.17 K/uL 0.00-0.80 jnux=9933) TOTAL COUNTED (BEAKER) (test wqdq=0695) 100 MANUAL NRBC PER 100 CELLS (BEAKER) (test 30 /100 WBC 0-0 vyui=4784) WBC MORPHOLOGY (BEAKER) (test jgab=683) Normal PLT MORPHOLOGY (BEAKER) (test yzuw=463) Normal POLYCHROMATOPHILLIC RBCS(BEAKER) (test tmsu=887) 3+ many ANISOCYTOSIS (BEAKER) (test spya=574) 2+ moderate MACROCYTES (BEAKER) (test wbib=593) 2+ moderate TARGET CELLS (BEAKER) (test jrdj=444) 1+ few SICKLE CELLS (BEAKER) (test upcl=118) 1+ few ARTIFACT (CELLAVISION)(BEAKER) (test itte=2736) Present PLATELET CONCENTRATION (CELLAVISION)(BEAKER) Adequate (test xclh=5156) Received comment: User comments: Slide comments:BASIC METABOLIC [id number] 06:15:00 Test Item Value Reference Range Comments SODIUM (BEAKER) (test 139 meq/L 136-145 zbgz=258) POTASSIUM (BEAKER) (test 4.7 meq/L 3.5-5.1 ivbc=491) CHLORIDE (BEAKER) (test 105 meq/L 98-107 jncs=251) CO2 (BEAKER) (test 26 meq/L 22-29 oudi=155) BLOOD UREA NITROGEN 10 mg/dL 7-21 (BEAKER) (test vrvx=333) CREATININE (BEAKER) (test 0.67 mg/dL 0.57-1.25 xwlq=369) GLUCOSE RANDOM (BEAKER) 91 mg/dL 70-105 (test kazy=430) CALCIUM (BEAKER) (test 9.3 mg/dL 8.4-10.2 phub=458) EGFR (BEAKER) (test 119 mL/min/1.73 sq m ESTIMATED GFR IS NOT zldh=5275) ACCURATE CREATININE CLEARANCE IN PREDICTING GLOMERULAR FILTRATION RATE. ESTIMATED GFR IS NOT APPLICABLE FOR DIALYSIS PATIENTS. URINALYSIS W/ [id number] 20:17:00 Test Item Value Reference Range Comments COLOR (BEAKER) (test qnjk=211) Yellow CLARITY (BEAKER) (test jhvr=558) Hazy SPECIFIC GRAVITY UA (BEAKER) (test ejdp=606) 1.009 1.001-1.035 PH UA (BEAKER) (test nvzj=615) 5.5 5.0-8.0 PROTEIN UA (BEAKER) (test gpmx=499) 20 mg/dL Negative GLUCOSE UA (BEAKER) (test kvyc=902) Negative Negative KETONES UA (BEAKER) (test niil=638) Negative Negative BILIRUBIN UA (BEAKER) (test ezrg=737) Negative Negative BLOOD UA (BEAKER) (test zitw=977) Small Negative NITRITE UA (BEAKER) (test wijv=910) Negative Negative LEUKOCYTE ESTERASE UA (BEAKER) (test eicb=708) Small Negative UROBILINOGEN UA (BEAKER) (test hzjp=135) 0.2 mg/dL 0.2-1.0 RBC UA (BEAKER) (test pyoj=474) 1 /HPF WBC UA (BEAKER) (test mydy=699) 4 /HPF BACTERIA (BEAKER) (test hvxw=727) Few MUCUS (BEAKER) (test jaeo=6288) Occasional SQUAMOUS EPITHELIAL (BEAKER) (test pxsr=877) 8 /HPF SOURCE(BEAKER) (test fbxq=8588) Urine, Voided CBC W/PLT COUNT & AUTO [id number] 11:18:00 Test Item Value Reference Range Comments WHITE BLOOD CELL COUNT (BEAKER) (test aqfr=455) 16.9 K/ L 3.5-10.5 RED BLOOD CELL COUNT (BEAKER) (test mmum=137) 2.15 M/ L 3.93-5.22 HEMOGLOBIN (BEAKER) (test vanu=224) 6.5 GM/DL 11.2-15.7 HEMATOCRIT (BEAKER) (test enny=593) 20.6 % 34.1-44.9 MEAN CORPUSCULAR VOLUME (BEAKER) (test eucr=536) 95.8 fL 79.4-94.8 MEAN CORPUSCULAR HEMOGLOBIN (BEAKER) (test 30.2 pg 25.6-32.2 cfaw=025) MEAN CORPUSCULAR HEMOGLOBIN CONC (BEAKER) (test 31.6 GM/DL 32.2-35.5 jfiu=578) RED CELL DISTRIBUTION WIDTH (BEAKER) (test 25.6 % 11.7-14.4 dvyf=431) PLATELET COUNT (BEAKER) (test cmec=132) 280 K/CU MM 150-450 MEAN PLATELET VOLUME (BEAKER) (test oltn=729) 10.7 fL 9.4-12.3 NUCLEATED RED BLOOD CELLS (BEAKER) (test 27 /100 WBC 0-0 dawt=017) (CELLAVISION MANUAL DIFF)2018-02-01 11:18:00 Test Item Value Reference Range Comments NEUTROPHILS - REL (CELLAVISION)(BEAKER) (test 61 % wgcv=7071) LYMPHOCYTES - REL (CELLAVISION)(BEAKER) (test 27 % lefx=3079) MONOCYTES - REL (CELLAVISION)(BEAKER) (test 8 % ifzw=6769) EOSINOPHILS - REL (CELLAVISION)(BEAKER) (test 4 % bkjg=8241) NEUTROPHILS - ABS (CELLAVISION)(BEAKER) (test 10.31 K/ul 1.56-6.13 klhj=4330) LYMPHOCYTES - ABS (CELLAVISION)(BEAKER) (test 4.56 K/ul 1.18-3.74 utpp=6060) MONOCYTES - ABS (CELLAVISION)(BEAKER) (test 1.35 K/uL 0.24-0.36 pcus=3115) EOSINOPHILS - ABS (CELLAVISION)(BEAKER) (test 0.68 K/uL 0.04-0.36 wtln=7148) TOTAL COUNTED (BEAKER) (test egza=0101) 100 MANUAL NRBC PER 100 CELLS (BEAKER) (test 28 /100 WBC 0-0 oqfl=3983) WBC MORPHOLOGY (BEAKER) (test cpwx=706) Normal PLT MORPHOLOGY (BEAKER) (test azeu=669) Normal POLYCHROMATOPHILLIC RBCS(BEAKER) (test sgrf=971) 2+ moderate ANISOCYTOSIS (BEAKER) (test zwbi=641) 2+ moderate TARGET CELLS (BEAKER) (test eoxv=579) 2+ moderate SICKLE CELLS (BEAKER) (test xanh=417) 1+ few ARTIFACT (CELLAVISION)(BEAKER) (test oglo=4469) Present PLATELET CONCENTRATION (CELLAVISION)(BEAKER) Adequate (test xdec=4352) Received comment: User comments: Slide comments:BASIC METABOLIC [id number] 06:15:00 Test Item Value Reference Range Comments SODIUM (BEAKER) (test 141 meq/L 136-145 dwvr=792) POTASSIUM (BEAKER) (test 4.2 meq/L 3.5-5.1 ovyq=544) CHLORIDE (BEAKER) (test 108 meq/L 98-107 grok=248) CO2 (BEAKER) (test 25 meq/L 22-29 bkws=827) BLOOD UREA NITROGEN 11 mg/dL 7-21 (BEAKER) (test kgda=660) CREATININE (BEAKER) (test 0.73 mg/dL 0.57-1.25 rscy=553) GLUCOSE RANDOM (BEAKER) 93 mg/dL 70-105 (test wxiy=086) CALCIUM (BEAKER) (test 9.2 mg/dL 8.4-10.2 qjwr=570) EGFR (BEAKER) (test 108 mL/min/1.73 sq m ESTIMATED GFR IS NOT atkh=1986) ACCURATE CREATININE CLEARANCE IN PREDICTING GLOMERULAR FILTRATION RATE. ESTIMATED GFR IS NOT APPLICABLE FOR DIALYSIS PATIENTS. CBC W/PLT COUNT & AUTO [id number] 15:02:00 Test Item Value Reference Range Comments WHITE BLOOD CELL COUNT (BEAKER) (test bphg=094) 18.0 K/ L 3.5-10.5 RED BLOOD CELL COUNT (BEAKER) (test adgh=666) 2.31 M/ L 3.93-5.22 HEMOGLOBIN (BEAKER) (test bpgg=703) 7.0 GM/DL 11.2-15.7 HEMATOCRIT (BEAKER) (test zkek=830) 22.4 % 34.1-44.9 MEAN CORPUSCULAR VOLUME (BEAKER) (test pgcq=468) 97.0 fL 79.4-94.8 MEAN CORPUSCULAR HEMOGLOBIN (BEAKER) (test 30.3 pg 25.6-32.2 eskf=938) MEAN CORPUSCULAR HEMOGLOBIN CONC (BEAKER) (test 31.3 GM/DL 32.2-35.5 qrvf=501) RED CELL DISTRIBUTION WIDTH (BEAKER) (test 27.9 % 11.7-14.4 prfg=666) PLATELET COUNT (BEAKER) (test hgav=850) 337 K/CU MM 150-450 MEAN PLATELET VOLUME (BEAKER) (test tagi=238) 10.2 fL 9.4-12.3 NUCLEATED RED BLOOD CELLS (BEAKER) (test 63 /100 WBC 0-0 lrok=276) NEUTROPHILS RELATIVE PERCENT (BEAKER) (test 45 % ryyh=111) LYMPHOCYTES RELATIVE PERCENT (BEAKER) (test 35 % tgha=473) MONOCYTES RELATIVE PERCENT (BEAKER) (test 16 % vjsp=513) EOSINOPHILS RELATIVE PERCENT (BEAKER) (test 2 % yohg=164) BASOPHILS RELATIVE PERCENT (BEAKER) (test 0 % same=268) NEUTROPHILS ABSOLUTE COUNT (BEAKER) (test 8.10 K/ L 1.56-6.13 sgyl=568) LYMPHOCYTES ABSOLUTE COUNT (BEAKER) (test 6.24 K/ L 1.18-3.74 xjan=442) MONOCYTES ABSOLUTE COUNT (BEAKER) (test 2.96 K/ L 0.24-0.36 mhyl=771) EOSINOPHILS ABSOLUTE COUNT (BEAKER) (test 0.38 K/ L 0.04-0.36 sdqg=139) BASOPHILS ABSOLUTE COUNT (BEAKER) (test 0.06 K/ L 0.01-0.08 yrcj=955) IMMATURE GRANULOCYTES-RELATIVE PERCENT (BEAKER) 2 % 0-1 (test jdjc=2808) (CELLAVISION MANUAL DIFF)2018-01-30 15:02:00 Test Item Value Reference Range Comments TOTAL COUNTED (BEAKER) (test tnsj=8432) WBC MORPHOLOGY (BEAKER) (test nuan=148) Normal PLT MORPHOLOGY (BEAKER) (test wfgc=569) Normal POLYCHROMATOPHILLIC RBCS(BEAKER) (test lhed=078) 2+ moderate ANISOCYTOSIS (BEAKER) (test lslr=801) 2+ moderate TARGET CELLS (BEAKER) (test livy=061) 2+ moderate SICKLE CELLS (BEAKER) (test lgea=140) 1+ few BASIC METABOLIC [id number] 09:27:00 Test Item Value Reference Range Comments SODIUM (BEAKER) (test 141 meq/L 136-145 dfwx=791) POTASSIUM (BEAKER) (test 4.0 meq/L 3.5-5.1 wxxq=968) CHLORIDE (BEAKER) (test 108 meq/L 98-107 gfnt=677) CO2 (BEAKER) (test 24 meq/L 22-29 qjfn=568) BLOOD UREA NITROGEN 12 mg/dL 7-21 (BEAKER) (test jbom=277) CREATININE (BEAKER) (test 0.80 mg/dL 0.57-1.25 swvt=470) GLUCOSE RANDOM (BEAKER) 95 mg/dL 70-105 (test gwhs=176) CALCIUM (BEAKER) (test 9.5 mg/dL 8.4-10.2 fzvw=824) EGFR (BEAKER) (test 97 mL/min/1.73 sq m ESTIMATED GFR IS NOT bbeu=9923) ACCURATE CREATININE CLEARANCE IN PREDICTING GLOMERULAR FILTRATION RATE. ESTIMATED GFR IS NOT APPLICABLE FOR DIALYSIS PATIENTS. [id number] 17:59:00 Test Item Value Reference Range Comments FERRITIN (BEAKER) (test ghyl=484) 03597 ng/mL 5-275 CBC W/PLT COUNT & AUTO [id number] 17:20:00 Test Item Value Reference Range Comments WHITE BLOOD CELL COUNT (BEAKER) (test qovq=211) 19.9 K/ L 3.5-10.5 RED BLOOD CELL COUNT (BEAKER) (test prvb=893) 1.53 M/ L 3.93-5.22 HEMOGLOBIN (BEAKER) (test eqit=274) 5.0 GM/DL 11.2-15.7 HEMATOCRIT (BEAKER) (test paxb=634) 16.0 % 34.1-44.9 MEAN CORPUSCULAR VOLUME (BEAKER) (test gjam=452) 104.6 fL 79.4-94.8 MEAN CORPUSCULAR HEMOGLOBIN (BEAKER) (test 32.7 pg 25.6-32.2 nlnl=483) MEAN CORPUSCULAR HEMOGLOBIN CONC (BEAKER) (test 31.3 GM/DL 32.2-35.5 zgir=364) RED CELL DISTRIBUTION WIDTH (BEAKER) (test 33.7 % 11.7-14.4 pfef=880) PLATELET COUNT (BEAKER) (test mfgs=429) 364 K/CU MM 150-450 MEAN PLATELET VOLUME (BEAKER) (test hptp=230) 10.4 fL 9.4-12.3 NUCLEATED RED BLOOD CELLS (BEAKER) (test 62 /100 WBC 0-0 gpnz=303) RETICULOCYTE [id number] 17:20:00 Test Item Value Reference Range Comments RETICULOCYTE COUNT PCT (BEAKER) (test nllc=354) > % 0.5-1.7 (CELLAVISION MANUAL DIFF)2018-01-29 17:20:00 Test Item Value Reference Range Comments TOTAL COUNTED (BEAKER) (test jkos=1419) RBC MORPHOLOGY (BEAKER) (test curx=020) Normal WBC MORPHOLOGY (BEAKER) (test xpkh=204) Normal PLT MORPHOLOGY (BEAKER) (test hycy=355) Normal LACTATE DEHYDROGENASE (LDH)2018-01-29 17:04:00 Test Item Value Reference Range Comments LACTATE DEHYDROGENASE (BEAKER) (test suwl=163) 989 U/L 125-220 BASIC METABOLIC [id number] 17:04:00 Test Item Value Reference Range Comments SODIUM (BEAKER) (test 138 meq/L 136-145 dmhp=048) POTASSIUM (BEAKER) (test 4.2 meq/L 3.5-5.1 bhgh=619) CHLORIDE (BEAKER) (test 109 meq/L 98-107 unxa=165) CO2 (BEAKER) (test 22 meq/L 22-29 zvda=592) BLOOD UREA NITROGEN 11 mg/dL 7-21 (BEAKER) (test imsq=732) CREATININE (BEAKER) (test 0.76 mg/dL 0.57-1.25 occm=220) GLUCOSE RANDOM (BEAKER) 104 mg/dL 70-105 (test ilim=155) CALCIUM (BEAKER) (test 9.5 mg/dL 8.4-10.2 lwla=372) EGFR (BEAKER) (test 103 mL/min/1.73 sq m ESTIMATED GFR IS NOT nisk=7535) ACCURATE CREATININE CLEARANCE IN PREDICTING GLOMERULAR FILTRATION RATE. ESTIMATED GFR IS NOT APPLICABLE FOR DIALYSIS PATIENTS. ANTI-MITOCHONDRIAL AB, REFLEX TO [id number] 11:03:00 Test Item Value Reference Range Comments SCAN RESULT (test lvqz=[id number]) CALCIUM, [id number] 07:05:00 Test Item Value Reference Range Comments CALCIUM IONIZED (BEAKER) (test gcgi=854) 1.10 mmol/L 1.12-1.27 PH, BLOOD (BEAKER) (test viup=3044) 7.30 [id number] 06:22:00 Test Item Value Reference Range Comments PHOSPHORUS (BEAKER) (test camy=554) 4.7 mg/dL 2.3-4.7 [id number] 06:22:00 Test Item Value Reference Range Comments MAGNESIUM (BEAKER) (test maaz=840) 1.4 mg/dL 1.6-2.6 BASIC METABOLIC [id number] 06:22:00 Test Item Value Reference Range Comments SODIUM (BEAKER) (test 135 meq/L 136-145 tctb=158) POTASSIUM (BEAKER) (test 4.5 meq/L 3.5-5.1 lwtc=677) CHLORIDE (BEAKER) (test 100 meq/L 98-107 ijsr=361) CO2 (BEAKER) (test 29 meq/L 22-29 lxqs=266) BLOOD UREA NITROGEN 19 mg/dL 7-21 (BEAKER) (test bpdy=500) CREATININE (BEAKER) (test 0.76 mg/dL 0.57-1.25 qvrw=285) GLUCOSE RANDOM (BEAKER) 104 mg/dL 70-105 (test bmrb=993) CALCIUM (BEAKER) (test 9.3 mg/dL 8.4-10.2 mdsc=078) EGFR (BEAKER) (test 103 mL/min/1.73 sq m ESTIMATED GFR IS NOT upav=4194) ACCURATE CREATININE CLEARANCE IN PREDICTING GLOMERULAR FILTRATION RATE. ESTIMATED GFR IS NOT APPLICABLE FOR DIALYSIS PATIENTS. CREATINE KINASE (CK)2017-11-24 08:12:00 Test Item Value Reference Range Comments CREATINE KINASE TOTAL (BEAKER) (test naqs=195) 8 U/L 29-200 URIC [id number] 08:01:00 Test Item Value Reference Range Comments URIC ACID (BEAKER) (test lwee=048) 4.8 mg/dL 2.6-7.2 [id number] 08:01:00 Test Item Value Reference Range Comments MAGNESIUM (BEAKER) (test sizw=404) 1.5 mg/dL 1.6-2.6 [id number] 08:01:00 Test Item Value Reference Range Comments PHOSPHORUS (BEAKER) (test iqvt=423) 5.3 mg/dL 2.3-4.7 BASIC METABOLIC [id number] 08:01:00 Test Item Value Reference Range Comments SODIUM (BEAKER) (test 138 meq/L 136-145 nfft=108) POTASSIUM (BEAKER) (test 4.9 meq/L 3.5-5.1 kdxd=511) CHLORIDE (BEAKER) (test 100 meq/L 98-107 uecv=304) CO2 (BEAKER) (test 28 meq/L 22-29 plic=514) BLOOD UREA NITROGEN 22 mg/dL 7-21 (BEAKER) (test jvwc=340) CREATININE (BEAKER) (test 0.80 mg/dL 0.57-1.25 wfjt=585) GLUCOSE RANDOM (BEAKER) 102 mg/dL 70-105 (test hnkh=156) CALCIUM (BEAKER) (test 9.3 mg/dL 8.4-10.2 uhzc=346) EGFR (BEAKER) (test 97 mL/min/1.73 sq m ESTIMATED GFR IS NOT jazf=0288) ACCURATE CREATININE CLEARANCE IN PREDICTING GLOMERULAR FILTRATION RATE. ESTIMATED GFR IS NOT APPLICABLE FOR DIALYSIS PATIENTS. LACTATE DEHYDROGENASE (LDH)2017-11-24 08:01:00 Test Item Value Reference Range Comments LACTATE DEHYDROGENASE (BEAKER) (test efak=345) 489 U/L 125-220 [id number] 18:07:00 Test Item Value Reference Range Comments POTASSIUM (BEAKER) (test flqa=165) 5.5 meq/L 3.5-5.1 Call if K > 5.4 to renal [id number] [id number] 1032CALCIUM, [id number] 06:51:00 Test Item Value Reference Range Comments CALCIUM IONIZED (BEAKER) (test lopd=008) 1.08 mmol/L 1.12-1.27 PH, BLOOD (BEAKER) (test jptv=1142) 7.35 CBC W/PLT COUNT & AUTO [id number] 06:25:00 Test Item Value Reference Range Comments WHITE BLOOD CELL COUNT (BEAKER) (test yewd=802) 18.3 K/ L 3.5-10.5 RED BLOOD CELL COUNT (BEAKER) (test esgv=092) 2.30 M/ L 3.93-5.22 HEMOGLOBIN (BEAKER) (test hrxj=513) 6.5 GM/DL 11.2-15.7 HEMATOCRIT (BEAKER) (test apcl=414) 21.1 % 34.1-44.9 MEAN CORPUSCULAR VOLUME (BEAKER) (test urra=387) 91.7 fL 79.4-94.8 MEAN CORPUSCULAR HEMOGLOBIN (BEAKER) (test 28.3 pg 25.6-32.2 mouj=209) MEAN CORPUSCULAR HEMOGLOBIN CONC (BEAKER) (test 30.8 GM/DL 32.2-35.5 kuoh=981) RED CELL DISTRIBUTION WIDTH (BEAKER) (test 21.2 % 11.7-14.4 futv=468) PLATELET COUNT (BEAKER) (test dtzl=412) 414 K/CU MM 150-450 MEAN PLATELET VOLUME (BEAKER) (test svnr=523) 11.5 fL 9.4-12.3 NUCLEATED RED BLOOD CELLS (BEAKER) (test 0 /100 WBC 0-0 wyls=823) NEUTROPHILS RELATIVE PERCENT (BEAKER) (test 53 % oiyk=531) LYMPHOCYTES RELATIVE PERCENT (BEAKER) (test 25 % ordb=916) MONOCYTES RELATIVE PERCENT (BEAKER) (test 19 % uvsa=358) EOSINOPHILS RELATIVE PERCENT (BEAKER) (test 2 % vckj=468) BASOPHILS RELATIVE PERCENT (BEAKER) (test 0 % npev=584) NEUTROPHILS ABSOLUTE COUNT (BEAKER) (test 9.74 K/ L 1.56-6.13 ytne=200) LYMPHOCYTES ABSOLUTE COUNT (BEAKER) (test 4.57 K/ L 1.18-3.74 kijm=980) MONOCYTES ABSOLUTE COUNT (BEAKER) (test 3.51 K/ L 0.24-0.36 ktka=268) EOSINOPHILS ABSOLUTE COUNT (BEAKER) (test 0.29 K/ L 0.04-0.36 ubyq=362) BASOPHILS ABSOLUTE COUNT (BEAKER) (test 0.07 K/ L 0.01-0.08 veyz=277) IMMATURE GRANULOCYTES-RELATIVE PERCENT (BEAKER) 1 % 0-1 (test gbne=5969) [id number] 05:35:00 Test Item Value Reference Range Comments PHOSPHORUS (BEAKER) (test nxil=866) 4.4 mg/dL 2.3-4.7 [id number] 05:35:00 Test Item Value Reference Range Comments MAGNESIUM (BEAKER) (test nbuw=267) 1.3 mg/dL 1.6-2.6 BASIC METABOLIC [id number] 05:35:00 Test Item Value Reference Range Comments SODIUM (BEAKER) (test 136 meq/L 136-145 tvus=439) POTASSIUM (BEAKER) (test 5.4 meq/L 3.5-5.1 yqlk=542) CHLORIDE (BEAKER) (test 97 meq/L 98-107 fxzt=965) CO2 (BEAKER) (test 31 meq/L 22-29 xcyx=882) BLOOD UREA NITROGEN 20 mg/dL 7-21 (BEAKER) (test ujwp=432) CREATININE (BEAKER) (test 0.75 mg/dL 0.57-1.25 ibcp=542) GLUCOSE RANDOM (BEAKER) 81 mg/dL 70-105 (test euzh=159) CALCIUM (BEAKER) (test 9.5 mg/dL 8.4-10.2 tjiw=277) EGFR (BEAKER) (test 105 mL/min/1.73 sq m ESTIMATED GFR IS NOT luea=4225) ACCURATE CREATININE CLEARANCE IN PREDICTING GLOMERULAR FILTRATION RATE. ESTIMATED GFR IS NOT APPLICABLE FOR DIALYSIS PATIENTS. [id number] 16:19:00 Test Item Value Reference Range Comments POTASSIUM (BEAKER) (test trvc=033) 5.2 meq/L 3.5-5.1 Repeat after 3 hours kayexalate was given; call result 168- [id number] 12:53:00 Test Item Value Reference Range Comments SODIUM (BEAKER) (test wvoy=500) 137 meq/L 136-145 POTASSIUM (BEAKER) (test xqem=342) 5.4 meq/L 3.5-5.1 CHLORIDE (BEAKER) (test njvi=672) 100 meq/L 98-107 CO2 (BEAKER) (test arjs=682) 30 meq/L 22-29 Call results [id number] 11:14:00 Test Item Value Reference Range Comments POTASSIUM (BEAKER) (test oodq=607) 5.8 meq/L 3.5-5.1 [id number] 06:40:00 Test Item Value Reference Range Comments PHOSPHORUS (BEAKER) (test nyhc=034) 5.4 mg/dL 2.3-4.7 [id number] 06:40:00 Test Item Value Reference Range Comments MAGNESIUM (BEAKER) (test vwbj=647) 1.6 mg/dL 1.6-2.6 CALCIUM, [id number] 06:27:00 Test Item Value Reference Range Comments CALCIUM IONIZED (BEAKER) (test oumg=264) 0.99 mmol/L 1.12-1.27 PH, BLOOD (BEAKER) (test iqqa=1975) 7.43 CBC W/PLT COUNT & AUTO [id number] 05:53:00 Test Item Value Reference Range Comments WHITE BLOOD CELL COUNT (BEAKER) (test rnbb=438) 16.2 K/ L 3.5-10.5 RED BLOOD CELL COUNT (BEAKER) (test jwlg=425) 2.38 M/ L 3.93-5.22 HEMOGLOBIN (BEAKER) (test aqcw=383) 7.0 GM/DL 11.2-15.7 HEMATOCRIT (BEAKER) (test bkvt=559) 22.2 % 34.1-44.9 MEAN CORPUSCULAR VOLUME (BEAKER) (test revb=279) 93.3 fL 79.4-94.8 MEAN CORPUSCULAR HEMOGLOBIN (BEAKER) (test 29.4 pg 25.6-32.2 vpri=425) MEAN CORPUSCULAR HEMOGLOBIN CONC (BEAKER) (test 31.5 GM/DL 32.2-35.5 dlgh=357) RED CELL DISTRIBUTION WIDTH (BEAKER) (test 21.3 % 11.7-14.4 tiju=601) PLATELET COUNT (BEAKER) (test qake=133) 390 K/CU MM 150-450 MEAN PLATELET VOLUME (BEAKER) (test rfms=860) 11.8 fL 9.4-12.3 NUCLEATED RED BLOOD CELLS (BEAKER) (test 0 /100 WBC 0-0 xhdu=037) NEUTROPHILS RELATIVE PERCENT (BEAKER) (test 58 % xtnm=290) LYMPHOCYTES RELATIVE PERCENT (BEAKER) (test 23 % miei=401) MONOCYTES RELATIVE PERCENT (BEAKER) (test 17 % naot=080) EOSINOPHILS RELATIVE PERCENT (BEAKER) (test 2 % fukn=595) BASOPHILS RELATIVE PERCENT (BEAKER) (test 0 % aozl=902) NEUTROPHILS ABSOLUTE COUNT (BEAKER) (test 9.31 K/ L 1.56-6.13 mwfa=559) LYMPHOCYTES ABSOLUTE COUNT (BEAKER) (test 3.65 K/ L 1.18-3.74 mofs=822) MONOCYTES ABSOLUTE COUNT (BEAKER) (test 2.70 K/ L 0.24-0.36 iltz=202) EOSINOPHILS ABSOLUTE COUNT (BEAKER) (test 0.36 K/ L 0.04-0.36 dyra=762) BASOPHILS ABSOLUTE COUNT (BEAKER) (test 0.04 K/ L 0.01-0.08 bfty=122) IMMATURE GRANULOCYTES-RELATIVE PERCENT (BEAKER) 1 % 0-1 (test tqss=7836) BASIC METABOLIC [id number] 17:35:00 Test Item Value Reference Range Comments SODIUM (BEAKER) (test 133 meq/L 136-145 tjzo=960) POTASSIUM (BEAKER) (test 5.4 meq/L 3.5-5.1 gkvj=954) CHLORIDE (BEAKER) (test 99 meq/L 98-107 ajky=050) CO2 (BEAKER) (test 26 meq/L 22-29 tand=081) BLOOD UREA NITROGEN 23 mg/dL 7-21 (BEAKER) (test lavo=022) CREATININE (BEAKER) (test 0.83 mg/dL 0.57-1.25 mqpn=450) GLUCOSE RANDOM (BEAKER) 94 mg/dL 70-105 (test pwhq=370) CALCIUM (BEAKER) (test 9.2 mg/dL 8.4-10.2 ykha=012) EGFR (BEAKER) (test 93 mL/min/1.73 sq m ESTIMATED GFR IS NOT ncwu=7666) ACCURATE CREATININE CLEARANCE IN PREDICTING GLOMERULAR FILTRATION RATE. ESTIMATED GFR IS NOT APPLICABLE FOR DIALYSIS PATIENTS. [id number] 06:33:00 Test Item Value Reference Range Comments PHOSPHORUS (BEAKER) (test lhvw=380) 5.3 mg/dL 2.3-4.7 [id number] 06:33:00 Test Item Value Reference Range Comments MAGNESIUM (BEAKER) (test dckv=247) 1.6 mg/dL 1.6-2.6 BASIC METABOLIC [id number] 06:33:00 Test Item Value Reference Range Comments SODIUM (BEAKER) (test 133 meq/L 136-145 pixz=639) POTASSIUM (BEAKER) (test 5.2 meq/L 3.5-5.1 ytdb=397) CHLORIDE (BEAKER) (test 97 meq/L 98-107 eseo=633) CO2 (BEAKER) (test 29 meq/L 22-29 vqpb=966) BLOOD UREA NITROGEN 23 mg/dL 7-21 (BEAKER) (test jokn=726) CREATININE (BEAKER) (test 0.77 mg/dL 0.57-1.25 hmrt=563) GLUCOSE RANDOM (BEAKER) 92 mg/dL 70-105 (test uhcd=787) CALCIUM (BEAKER) (test 9.4 mg/dL 8.4-10.2 sgzy=509) EGFR (BEAKER) (test 102 mL/min/1.73 sq m ESTIMATED GFR IS NOT xuxe=8497) ACCURATE CREATININE CLEARANCE IN PREDICTING GLOMERULAR FILTRATION RATE. ESTIMATED GFR IS NOT APPLICABLE FOR DIALYSIS PATIENTS. CALCIUM, [id number] 06:22:00 Test Item Value Reference Range Comments CALCIUM IONIZED (BEAKER) (test ltlk=053) 1.18 mmol/L 1.12-1.27 PH, BLOOD (BEAKER) (test mzqz=3075) 7.32 B-TYPE NATRIURETIC FACTOR (BNP)2017-11-21 06:19:00 Test Item Value Reference Range Comments B-TYPE NATRIURETIC PEPTIDE (BEAKER) (test 120 pg/mL 0-100 glyz=420) CBC W/PLT COUNT & AUTO [id number] 05:59:00 Test Item Value Reference Range Comments WHITE BLOOD CELL COUNT (BEAKER) (test koil=962) 17.4 K/ L 3.5-10.5 RED BLOOD CELL COUNT (BEAKER) (test eahq=929) 2.32 M/ L 3.93-5.22 HEMOGLOBIN (BEAKER) (test ffcp=700) 6.7 GM/DL 11.2-15.7 HEMATOCRIT (BEAKER) (test gtnk=137) 21.6 % 34.1-44.9 MEAN CORPUSCULAR VOLUME (BEAKER) (test xnwx=232) 93.1 fL 79.4-94.8 MEAN CORPUSCULAR HEMOGLOBIN (BEAKER) (test 28.9 pg 25.6-32.2 yugp=022) MEAN CORPUSCULAR HEMOGLOBIN CONC (BEAKER) (test 31.0 GM/DL 32.2-35.5 bngv=503) RED CELL DISTRIBUTION WIDTH (BEAKER) (test 20.9 % 11.7-14.4 hdsf=038) PLATELET COUNT (BEAKER) (test iwda=831) 367 K/CU MM 150-450 MEAN PLATELET VOLUME (BEAKER) (test uhoj=065) 12.1 fL 9.4-12.3 NUCLEATED RED BLOOD CELLS (BEAKER) (test 0 /100 WBC 0-0 ceby=908) NEUTROPHILS RELATIVE PERCENT (BEAKER) (test 58 % nphn=085) LYMPHOCYTES RELATIVE PERCENT (BEAKER) (test 23 % urud=917) MONOCYTES RELATIVE PERCENT (BEAKER) (test 16 % ngjy=226) EOSINOPHILS RELATIVE PERCENT (BEAKER) (test 3 % mzbz=776) BASOPHILS RELATIVE PERCENT (BEAKER) (test 1 % aduj=276) NEUTROPHILS ABSOLUTE COUNT (BEAKER) (test 10.09 K/ L 1.56-6.13 efmi=371) LYMPHOCYTES ABSOLUTE COUNT (BEAKER) (test 3.92 K/ L 1.18-3.74 gugr=519) MONOCYTES ABSOLUTE COUNT (BEAKER) (test 2.71 K/ L 0.24-0.36 tpyf=211) EOSINOPHILS ABSOLUTE COUNT (BEAKER) (test 0.46 K/ L 0.04-0.36 zebn=947) BASOPHILS ABSOLUTE COUNT (BEAKER) (test 0.08 K/ L 0.01-0.08 ksvj=061) IMMATURE GRANULOCYTES-RELATIVE PERCENT (BEAKER) 1 % 0-1 (test ikex=7052) BLOOD GAS, [id number] 07:22:00 Test Item Value Reference Range Comments PH VENOUS (BEAKER) (test jcwa=320) 7.34 7.32-7.42 PCO2 VENOUS (BEAKER) (test puoo=541) 63 mmHg 41-51 PO2 VENOUS (BEAKER) (test kclc=910) 133 mmHg 25-40 O2 SATURATION VENOUS (BEAKER) (test xlib=671) 98.4 % 40.0-70.0 HCO3 VENOUS (BEAKER) (test fdvp=663) 33 mmol/L 21-29 BASE EXCESS VENOUS (BEAKER) (test aibq=211) 6.6 mmol/L -2.0-3.0 PATIENT TEMPERATURE (BEAKER) (test ghiv=2121) 37.0 C FIO2 (BEAKER) (test kdwy=2326) 21.0 % CALCIUM, [id number] 07:20:00 Test Item Value Reference Range Comments CALCIUM IONIZED (BEAKER) (test hhgq=745) 1.10 mmol/L 1.12-1.27 PH, BLOOD (BEAKER) (test vzwp=7442) 7.33 [id number] 07:18:00 Test Item Value Reference Range Comments PHOSPHORUS (BEAKER) (test lvth=222) 4.8 mg/dL 2.3-4.7 [id number] 07:18:00 Test Item Value Reference Range Comments MAGNESIUM (BEAKER) (test eehz=944) 1.6 mg/dL 1.6-2.6 BASIC METABOLIC [id number] 07:18:00 Test Item Value Reference Range Comments SODIUM (BEAKER) (test 137 meq/L 136-145 wynh=690) POTASSIUM (BEAKER) (test 4.8 meq/L 3.5-5.1 pgtb=515) CHLORIDE (BEAKER) (test 99 meq/L 98-107 ychu=713) CO2 (BEAKER) (test 31 meq/L 22-29 ufol=451) BLOOD UREA NITROGEN 20 mg/dL 7-21 (BEAKER) (test ewha=478) CREATININE (BEAKER) (test 0.83 mg/dL 0.57-1.25 naud=323) GLUCOSE RANDOM (BEAKER) 117 mg/dL 70-105 (test bkcf=603) CALCIUM (BEAKER) (test 9.5 mg/dL 8.4-10.2 ybnr=373) EGFR (BEAKER) (test 93 mL/min/1.73 sq m ESTIMATED GFR IS NOT glzr=2489) ACCURATE CREATININE CLEARANCE IN PREDICTING GLOMERULAR FILTRATION RATE. ESTIMATED GFR IS NOT APPLICABLE FOR DIALYSIS PATIENTS. CBC W/PLT COUNT & AUTO [id number] 07:14:00 Test Item Value Reference Range Comments WHITE BLOOD CELL COUNT (BEAKER) (test gond=410) 16.7 K/ L 3.5-10.5 RED BLOOD CELL COUNT (BEAKER) (test awjz=553) 2.39 M/ L 3.93-5.22 HEMOGLOBIN (BEAKER) (test pahq=886) 6.9 GM/DL 11.2-15.7 HEMATOCRIT (BEAKER) (test zgwb=294) 22.3 % 34.1-44.9 MEAN CORPUSCULAR VOLUME (BEAKER) (test baif=015) 93.3 fL 79.4-94.8 MEAN CORPUSCULAR HEMOGLOBIN (BEAKER) (test 28.9 pg 25.6-32.2 xret=435) MEAN CORPUSCULAR HEMOGLOBIN CONC (BEAKER) (test 30.9 GM/DL 32.2-35.5 xniw=511) RED CELL DISTRIBUTION WIDTH (BEAKER) (test 21.1 % 11.7-14.4 nfwx=545) PLATELET COUNT (BEAKER) (test vehk=435) 344 K/CU MM 150-450 MEAN PLATELET VOLUME (BEAKER) (test oyta=514) 11.7 fL 9.4-12.3 NUCLEATED RED BLOOD CELLS (BEAKER) (test 0 /100 WBC 0-0 yodh=026) NEUTROPHILS RELATIVE PERCENT (BEAKER) (test 60 % rima=017) LYMPHOCYTES RELATIVE PERCENT (BEAKER) (test 23 % mkyr=152) MONOCYTES RELATIVE PERCENT (BEAKER) (test 14 % vkoj=762) EOSINOPHILS RELATIVE PERCENT (BEAKER) (test 3 % vjer=131) BASOPHILS RELATIVE PERCENT (BEAKER) (test 0 % melq=423) NEUTROPHILS ABSOLUTE COUNT (BEAKER) (test 9.95 K/ L 1.56-6.13 myjj=975) LYMPHOCYTES ABSOLUTE COUNT (BEAKER) (test 3.92 K/ L 1.18-3.74 jkfx=093) MONOCYTES ABSOLUTE COUNT (BEAKER) (test 2.29 K/ L 0.24-0.36 mmty=892) EOSINOPHILS ABSOLUTE COUNT (BEAKER) (test 0.45 K/ L 0.04-0.36 ujui=817) BASOPHILS ABSOLUTE COUNT (BEAKER) (test 0.04 K/ L 0.01-0.08 gpxs=716) IMMATURE GRANULOCYTES-RELATIVE PERCENT (BEAKER) 0 % 0-1 (test hjpr=9954) [id number] 11:18:00 Test Item Value Reference Range Comments FERRITIN (BEAKER) (test hrba=273) 46584 ng/mL 5-275 [id number] 07:10:00 Test Item Value Reference Range Comments MAGNESIUM (BEAKER) (test pgpi=308) 2.0 mg/dL 1.6-2.6 BASIC METABOLIC [id number] 07:10:00 Test Item Value Reference Range Comments SODIUM (BEAKER) (test 137 meq/L 136-145 osfc=863) POTASSIUM (BEAKER) (test 4.5 meq/L 3.5-5.1 sdas=848) CHLORIDE (BEAKER) (test 99 meq/L 98-107 xqzc=060) CO2 (BEAKER) (test 35 meq/L 22-29 hcce=811) BLOOD UREA NITROGEN 18 mg/dL 7-21 (BEAKER) (test qria=280) CREATININE (BEAKER) (test 0.78 mg/dL 0.57-1.25 neqf=427) GLUCOSE RANDOM (BEAKER) 102 mg/dL 70-105 (test xght=632) CALCIUM (BEAKER) (test 9.4 mg/dL 8.4-10.2 gpyt=838) EGFR (BEAKER) (test 100 mL/min/1.73 sq m ESTIMATED GFR IS NOT zrlj=3291) ACCURATE CREATININE CLEARANCE IN PREDICTING GLOMERULAR FILTRATION RATE. ESTIMATED GFR IS NOT APPLICABLE FOR DIALYSIS PATIENTS. CBC (HEMOGRAM ONLY)2017-11-19 07:06:00 Test Item Value Reference Range Comments WHITE BLOOD CELL COUNT (BEAKER) (test vuyj=055) 15.3 K/ L 3.5-10.5 RED BLOOD CELL COUNT (BEAKER) (test hupm=289) 2.42 M/ L 3.93-5.22 HEMOGLOBIN (BEAKER) (test ngqc=289) 7.1 GM/DL 11.2-15.7 HEMATOCRIT (BEAKER) (test kuwx=436) 22.5 % 34.1-44.9 MEAN CORPUSCULAR VOLUME (BEAKER) (test puxu=481) 93.0 fL 79.4-94.8 MEAN CORPUSCULAR HEMOGLOBIN (BEAKER) (test 29.3 pg 25.6-32.2 bdpf=051) MEAN CORPUSCULAR HEMOGLOBIN CONC (BEAKER) (test 31.6 GM/DL 32.2-35.5 puuy=161) RED CELL DISTRIBUTION WIDTH (BEAKER) (test 20.9 % 11.7-14.4 viau=006) PLATELET COUNT (BEAKER) (test lmmk=279) 324 K/CU MM 150-450 MEAN PLATELET VOLUME (BEAKER) (test bxto=963) 11.8 fL 9.4-12.3 NUCLEATED RED BLOOD CELLS (BEAKER) (test 1 /100 WBC 0-0 ejlk=959) BLOOD [id number] 06:00:00 Test Item Value Reference Range Comments CULTURE (BEAKER) (test vzau=5671) No growth in 5 days ANTI-NUCLEAR ANTIBODY (AMARILYS)2017-11-17 14:21:00 Test Item Value Reference Range Comments ANTI-NUCLEAR ANTIBODY (AMARILYS) (BEAKER) (test Positive Negative jzgd=122) AMARILYS TITER AND [id number] 14:21:00 Test Item Value Reference Range Comments AMARILYS TITER (BEAKER) (test :160 pzah=1852) AMARILYS PATTERN (BEAKER) (test Multiple nuclear dots pattern ttoe=5799) [id number] 07:16:00 Test Item Value Reference Range Comments PHOSPHORUS (BEAKER) (test npbp=424) 4.5 mg/dL 2.3-4.7 [id number] 07:16:00 Test Item Value Reference Range Comments MAGNESIUM (BEAKER) (test ezmd=269) 1.4 mg/dL 1.6-2.6 BASIC METABOLIC [id number] 07:16:00 Test Item Value Reference Range Comments SODIUM (BEAKER) (test 141 meq/L 136-145 jdcx=301) POTASSIUM (BEAKER) (test 4.2 meq/L 3.5-5.1 ibmh=332) CHLORIDE (BEAKER) (test 98 meq/L 98-107 mlsi=716) CO2 (BEAKER) (test 34 meq/L 22-29 wnkj=693) BLOOD UREA NITROGEN 21 mg/dL 7-21 (BEAKER) (test sdcr=216) CREATININE (BEAKER) (test 0.85 mg/dL 0.57-1.25 xrxf=345) GLUCOSE RANDOM (BEAKER) 98 mg/dL 70-105 (test uhtn=279) CALCIUM (BEAKER) (test 9.2 mg/dL 8.4-10.2 gihm=469) EGFR (BEAKER) (test 91 mL/min/1.73 sq m ESTIMATED GFR IS NOT mreq=9508) ACCURATE CREATININE CLEARANCE IN PREDICTING GLOMERULAR FILTRATION RATE. ESTIMATED GFR IS NOT APPLICABLE FOR DIALYSIS PATIENTS. HEPATIC FUNCTION [id number] 07:16:00 Test Item Value Reference Range Comments TOTAL PROTEIN (BEAKER) (test fzge=976) 8.3 gm/dL 6.0-8.3 ALBUMIN (BEAKER) (test pghn=2675) 3.0 g/dL 3.5-5.0 BILIRUBIN TOTAL (BEAKER) (test jmlj=585) 1.3 mg/dL 0.2-1.2 BILIRUBIN DIRECT (BEAKER) (test pxuo=037) 0.7 mg/dL 0.1-0.5 ALKALINE PHOSPHATASE (BEAKER) (test yexr=920) 217 U/L 40-150 AST (SGOT) (BEAKER) (test tmkc=463) 106 U/L 5-34 ALT (SGPT) (BEAKER) (test dzxv=718) 46 U/L 6-55 CALCIUM, [id number] 06:50:00 Test Item Value Reference Range Comments CALCIUM IONIZED (BEAKER) (test ezhn=421) 1.11 mmol/L 1.12-1.27 PH, BLOOD (BEAKER) (test uyxl=8345) 7.34 CBC W/PLT COUNT & AUTO [id number] 06:09:00 Test Item Value Reference Range Comments WHITE BLOOD CELL COUNT (BEAKER) (test kjqb=634) 16.8 K/ L 3.5-10.5 RED BLOOD CELL COUNT (BEAKER) (test kveg=149) 2.53 M/ L 3.93-5.22 HEMOGLOBIN (BEAKER) (test xnhx=373) 7.3 GM/DL 11.2-15.7 HEMATOCRIT (BEAKER) (test zajx=179) 23.3 % 34.1-44.9 MEAN CORPUSCULAR VOLUME (BEAKER) (test gkgh=883) 92.1 fL 79.4-94.8 MEAN CORPUSCULAR HEMOGLOBIN (BEAKER) (test 28.9 pg 25.6-32.2 usic=160) MEAN CORPUSCULAR HEMOGLOBIN CONC (BEAKER) (test 31.3 GM/DL 32.2-35.5 yvdv=481) RED CELL DISTRIBUTION WIDTH (BEAKER) (test 20.2 % 11.7-14.4 rreg=802) PLATELET COUNT (BEAKER) (test ucib=318) 305 K/CU MM 150-450 MEAN PLATELET VOLUME (BEAKER) (test ixyf=960) 12.0 fL 9.4-12.3 NUCLEATED RED BLOOD CELLS (BEAKER) (test 1 /100 WBC 0-0 zszz=303) NEUTROPHILS RELATIVE PERCENT (BEAKER) (test 66 % smgk=850) LYMPHOCYTES RELATIVE PERCENT (BEAKER) (test 20 % tevr=289) MONOCYTES RELATIVE PERCENT (BEAKER) (test 11 % ebqh=222) EOSINOPHILS RELATIVE PERCENT (BEAKER) (test 3 % kijl=767) BASOPHILS RELATIVE PERCENT (BEAKER) (test 0 % dtvi=393) NEUTROPHILS ABSOLUTE COUNT (BEAKER) (test 10.99 K/ L 1.56-6.13 tytw=501) LYMPHOCYTES ABSOLUTE COUNT (BEAKER) (test 3.29 K/ L 1.18-3.74 jzse=061) MONOCYTES ABSOLUTE COUNT (BEAKER) (test 1.89 K/ L 0.24-0.36 hgbb=727) EOSINOPHILS ABSOLUTE COUNT (BEAKER) (test 0.48 K/ L 0.04-0.36 fzzm=457) BASOPHILS ABSOLUTE COUNT (BEAKER) (test 0.05 K/ L 0.01-0.08 dbgy=425) IMMATURE GRANULOCYTES-RELATIVE PERCENT (BEAKER) 0 % 0-1 (test oozj=3217) HEPATITIS PANEL, [id number] 14:32:00 Test Item Value Reference Range Comments HEPATITIS A IGM ANTIBODY (BEAKER) (test Nonreactive Nonreactive aheb=902) HEPATITIS B CORE IGM ANTIBODY (BEAKER) (test Nonreactive Nonreactive jtpc=938) HEPATITIS C ANTIBODY (BEAKER) (test eqsn=378) Nonreactive Nonreactive HEPATITIS B SURFACE ANTIGEN (2) (BEAKER) (test Nonreactive Nonreactive ievn=2671) RAD, MANDIBLE, LESS THAN 4 [id number] 12:28:00Reason for exam:->fever, dental cariesFINAL REPORT Mandible [...] air cells are well aerated. Signed: Anselmo CainepPneumRx Verified Date/Time: 11/16/2017 12:28:43 Reading Location: [facility] Radiology Reading Room RAD, CHEST, 2 [id number] 10:47:00Reason for exam:-> fever, chest painFINAL REPORT [...] MDReport Verified Date/Time: 11/16/2017 10:47:19 Reading Location: [facility] Radiology Reading Room URINE [id number] 09:53:00 Test Item Value Reference Range Comments CULTURE (BEAKER) (test tbeo=8450) >100,000 col/mL skin valentino CBC W/PLT COUNT & AUTO [id number] 09:20:00 Test Item Value Reference Range Comments WHITE BLOOD CELL COUNT (BEAKER) (test eiyx=372) 18.6 K/ L 3.5-10.5 RED BLOOD CELL COUNT (BEAKER) (test ishv=068) 2.63 M/ L 3.93-5.22 HEMOGLOBIN (BEAKER) (test xgps=249) 7.6 GM/DL 11.2-15.7 HEMATOCRIT (BEAKER) (test cnqt=594) 23.8 % 34.1-44.9 MEAN CORPUSCULAR VOLUME (BEAKER) (test ntnt=146) 90.5 fL 79.4-94.8 MEAN CORPUSCULAR HEMOGLOBIN (BEAKER) (test 28.9 pg 25.6-32.2 gypy=893) MEAN CORPUSCULAR HEMOGLOBIN CONC (BEAKER) (test 31.9 GM/DL 32.2-35.5 cafi=217) RED CELL DISTRIBUTION WIDTH (BEAKER) (test 19.9 % 11.7-14.4 msyk=618) PLATELET COUNT (BEAKER) (test atjv=597) 330 K/CU MM 150-450 MEAN PLATELET VOLUME (BEAKER) (test kvjj=221) 11.9 fL 9.4-12.3 NUCLEATED RED BLOOD CELLS (BEAKER) (test 1 /100 WBC 0-0 hpwe=979) NEUTROPHILS RELATIVE PERCENT (BEAKER) (test 65 % wbjt=703) LYMPHOCYTES RELATIVE PERCENT (BEAKER) (test 22 % tlje=987) MONOCYTES RELATIVE PERCENT (BEAKER) (test 10 % gjoo=127) EOSINOPHILS RELATIVE PERCENT (BEAKER) (test 2 % avdu=741) BASOPHILS RELATIVE PERCENT (BEAKER) (test 0 % xwha=446) NEUTROPHILS ABSOLUTE COUNT (BEAKER) (test 12.09 K/ L 1.56-6.13 dpgp=178) LYMPHOCYTES ABSOLUTE COUNT (BEAKER) (test 4.02 K/ L 1.18-3.74 xeja=620) MONOCYTES ABSOLUTE COUNT (BEAKER) (test 1.90 K/ L 0.24-0.36 abyy=659) EOSINOPHILS ABSOLUTE COUNT (BEAKER) (test 0.41 K/ L 0.04-0.36 sigs=789) BASOPHILS ABSOLUTE COUNT (BEAKER) (test 0.05 K/ L 0.01-0.08 pxlz=267) IMMATURE GRANULOCYTES-RELATIVE PERCENT (BEAKER) 0 % 0-1 (test rzts=2070) (MANUAL DIFFERENTIAL)2017-11-16 09:20:00 Test Item Value Reference Range Comments TOTAL COUNTED (BEAKER) (test jlby=1852) WBC MORPHOLOGY (BEAKER) (test jtmc=088) Normal PLT MORPHOLOGY (BEAKER) (test twlq=143) Normal POLYCHROMATOPHILLIC RBCS(BEAKER) (test ijhp=361) 1+ few SICKLE CELLS (BEAKER) (test fudk=500) 1+ few TARGET CELLS (BEAKER) (test nexj=705) 2+ moderate CALCIUM, [id number] 07:28:00 Test Item Value Reference Range Comments CALCIUM IONIZED (BEAKER) (test pukc=659) 0.97 mmol/L 1.12-1.27 PH, BLOOD (BEAKER) (test axhd=2018) 7.45 [id number] 05:48:00 Test Item Value Reference Range Comments PHOSPHORUS (BEAKER) (test ltwu=211) 4.8 mg/dL 2.3-4.7 [id number] 05:48:00 Test Item Value Reference Range Comments MAGNESIUM (BEAKER) (test hhta=128) 1.6 mg/dL 1.6-2.6 BASIC METABOLIC [id number] 05:48:00 Test Item Value Reference Range Comments SODIUM (BEAKER) (test 139 meq/L 136-145 vfsx=344) POTASSIUM (BEAKER) (test 3.9 meq/L 3.5-5.1 dsse=269) CHLORIDE (BEAKER) (test 98 meq/L 98-107 njvs=047) CO2 (BEAKER) (test 32 meq/L 22-29 jbco=511) BLOOD UREA NITROGEN 23 mg/dL 7-21 (BEAKER) (test cgkd=017) CREATININE (BEAKER) (test 1.10 mg/dL 0.57-1.25 hfgr=951) GLUCOSE RANDOM (BEAKER) 115 mg/dL 70-105 (test wjjg=348) CALCIUM (BEAKER) (test 9.0 mg/dL 8.4-10.2 ynap=526) EGFR (BEAKER) (test 67 mL/min/1.73 sq m ESTIMATED GFR IS NOT qcaf=2893) ACCURATE CREATININE CLEARANCE IN PREDICTING GLOMERULAR FILTRATION RATE. ESTIMATED GFR IS NOT APPLICABLE FOR DIALYSIS PATIENTS. URINALYSIS W/ [id number] 19:14:00 Test Item Value Reference Range Comments COLOR (BEAKER) (test qwqj=492) Yellow CLARITY (BEAKER) (test zrca=664) Clear SPECIFIC GRAVITY UA (BEAKER) (test sxpi=434) 1.006 1.001-1.035 PH UA (BEAKER) (test ysgy=840) 7.5 5.0-8.0 PROTEIN UA (BEAKER) (test urqk=420) Negative Negative GLUCOSE UA (BEAKER) (test nlof=316) Negative Negative KETONES UA (BEAKER) (test ahqq=902) Negative Negative BILIRUBIN UA (BEAKER) (test iope=558) Negative Negative BLOOD UA (BEAKER) (test erbu=871) Trace Negative NITRITE UA (BEAKER) (test gvkz=814) Negative Negative LEUKOCYTE ESTERASE UA (BEAKER) (test yavq=612) Small Negative UROBILINOGEN UA (BEAKER) (test tkfi=045) 0.2 mg/dL 0.2-1.0 RBC UA (BEAKER) (test socr=657) < /HPF WBC UA (BEAKER) (test mslp=161) 7 /HPF BACTERIA (BEAKER) (test xnbh=433) Rare SQUAMOUS EPITHELIAL (BEAKER) (test huwc=544) 1 /HPF SOURCE(BEAKER) (test xtmy=4536) Urine, Voided [id number] 13:26:00 Test Item Value Reference Range Comments LIPASE (BEAKER) (test cues=813) 95 U/L 8-78 RAD, ABDOMEN/KUB, 1 VIEW [id number] 12:43:00Reason for exam:->abdominal painFINAL REPORT Abdomen one [...] Caineport Verified Date/Time: 11/15/2017 12:43:04 Reading Location: [facility] Radiology Reading Room CBC W/PLT COUNT & AUTO [id number] 10:00:00 Test Item Value Reference Range Comments WHITE BLOOD CELL COUNT (BEAKER) (test mxmd=797) 18.8 K/ L 3.5-10.5 RED BLOOD CELL COUNT (BEAKER) (test ysfk=681) 1.83 M/ L 3.93-5.22 HEMOGLOBIN (BEAKER) (test tdqr=110) 5.4 GM/DL 11.2-15.7 HEMATOCRIT (BEAKER) (test vzwe=378) 16.7 % 34.1-44.9 MEAN CORPUSCULAR VOLUME (BEAKER) (test qane=085) 91.3 fL 79.4-94.8 MEAN CORPUSCULAR HEMOGLOBIN (BEAKER) (test 29.5 pg 25.6-32.2 xqxg=752) MEAN CORPUSCULAR HEMOGLOBIN CONC (BEAKER) (test 32.3 GM/DL 32.2-35.5 tzog=586) RED CELL DISTRIBUTION WIDTH (BEAKER) (test 21.7 % 11.7-14.4 wync=132) PLATELET COUNT (BEAKER) (test jsxm=323) 340 K/CU MM 150-450 MEAN PLATELET VOLUME (BEAKER) (test exda=064) 11.3 fL 9.4-12.3 NUCLEATED RED BLOOD CELLS (BEAKER) (test 2 /100 WBC 0-0 obmd=517) NEUTROPHILS RELATIVE PERCENT (BEAKER) (test 65 % vvqc=388) LYMPHOCYTES RELATIVE PERCENT (BEAKER) (test 23 % djqj=527) MONOCYTES RELATIVE PERCENT (BEAKER) (test 10 % xfbm=534) EOSINOPHILS RELATIVE PERCENT (BEAKER) (test 1 % zffr=205) BASOPHILS RELATIVE PERCENT (BEAKER) (test 0 % izmb=488) NEUTROPHILS ABSOLUTE COUNT (BEAKER) (test 12.25 K/ L 1.56-6.13 jcxm=109) LYMPHOCYTES ABSOLUTE COUNT (BEAKER) (test 4.31 K/ L 1.18-3.74 omih=986) MONOCYTES ABSOLUTE COUNT (BEAKER) (test 1.88 K/ L 0.24-0.36 zolu=580) EOSINOPHILS ABSOLUTE COUNT (BEAKER) (test 0.26 K/ L 0.04-0.36 enzs=924) BASOPHILS ABSOLUTE COUNT (BEAKER) (test 0.02 K/ L 0.01-0.08 mike=092) IMMATURE GRANULOCYTES-RELATIVE PERCENT (BEAKER) 1 % 0-1 (test dqrf=7523) (MANUAL DIFFERENTIAL)2017-11-15 10:00:00 Test Item Value Reference Range Comments TOTAL COUNTED (BEAKER) (test msxk=4957) ATYPICAL LYMPHS(BEAKER) (test vuhu=7438) Present LARGE PLT(BEAKER) (test qljr=6098) Present HYPOCHROMIA (BEAKER) (test qhcm=650) 1+ few POLYCHROMATOPHILLIC RBCS(BEAKER) (test yyvt=251) 1+ few SICKLE CELLS (BEAKER) (test aprx=308) 1+ few TARGET CELLS (BEAKER) (test fqxb=776) 1+ few U/S, ENDOVAGINAL (EV)2017-11-15 09:03:00Reason for [...] MDReport Verified Date/Time: 2017 09:03:15 Reading Location: [facility] [id number] Ultrasound Reading Room CBC W/ PLT COUNT & AUTO [id number] 08:32:00 Test Item Value Reference Range Comments WHITE BLOOD CELL COUNT (BEAKER) (test cmit=353) 19.8 K/ L 3.5-10.5 RED BLOOD CELL COUNT (BEAKER) (test ffnw=912) 1.89 M/ L 3.93-5.22 HEMOGLOBIN (BEAKER) (test cqhd=440) 5.6 GM/DL 11.2-15.7 HEMATOCRIT (BEAKER) (test ryoo=834) 17.2 % 34.1-44.9 MEAN CORPUSCULAR VOLUME (BEAKER) (test grtm=542) 91.0 fL 79.4-94.8 MEAN CORPUSCULAR HEMOGLOBIN (BEAKER) (test 29.6 pg 25.6-32.2 gmxz=139) MEAN CORPUSCULAR HEMOGLOBIN CONC (BEAKER) (test 32.6 GM/DL 32.2-35.5 dnfk=056) RED CELL DISTRIBUTION WIDTH (BEAKER) (test 21.4 % 11.7-14.4 jwhw=413) PLATELET COUNT (BEAKER) (test jrya=473) 366 K/CU MM 150-450 MEAN PLATELET VOLUME (BEAKER) (test dvjh=881) 11.6 fL 9.4-12.3 NUCLEATED RED BLOOD CELLS (BEAKER) (test 2 /100 WBC 0-0 cvoa=378) NEUTROPHILS RELATIVE PERCENT (BEAKER) (test 70 % owrh=821) LYMPHOCYTES RELATIVE PERCENT (BEAKER) (test 18 % knxc=570) MONOCYTES RELATIVE PERCENT (BEAKER) (test 10 % cgbd=214) EOSINOPHILS RELATIVE PERCENT (BEAKER) (test 1 % epfq=249) BASOPHILS RELATIVE PERCENT (BEAKER) (test 0 % hdgg=079) NEUTROPHILS ABSOLUTE COUNT (BEAKER) (test 13.93 K/ L 1.56-6.13 rgon=250) LYMPHOCYTES ABSOLUTE COUNT (BEAKER) (test 3.51 K/ L 1.18-3.74 yzcf=973) MONOCYTES ABSOLUTE COUNT (BEAKER) (test 2.03 K/ L 0.24-0.36 ecdi=579) EOSINOPHILS ABSOLUTE COUNT (BEAKER) (test 0.23 K/ L 0.04-0.36 mwnv=641) BASOPHILS ABSOLUTE COUNT (BEAKER) (test 0.02 K/ L 0.01-0.08 xnjl=223) IMMATURE GRANULOCYTES-RELATIVE PERCENT (BEAKER) 0 % 0-1 (test rcmp=9668) [id number] 06:16:00 Test Item Value Reference Range Comments PHOSPHORUS (BEAKER) (test xnwq=497) 4.6 mg/dL 2.3-4.7 [id number] 06:16:00 Test Item Value Reference Range Comments MAGNESIUM (BEAKER) (test cbfc=166) 1.6 mg/dL 1.6-2.6 BASIC METABOLIC [id number] 06:16:00 Test Item Value Reference Range Comments SODIUM (BEAKER) (test 139 meq/L 136-145 udzf=139) POTASSIUM (BEAKER) (test 3.9 meq/L 3.5-5.1 ddwj=798) CHLORIDE (BEAKER) (test 97 meq/L 98-107 lpln=683) CO2 (BEAKER) (test 33 meq/L 22-29 sgst=098) BLOOD UREA NITROGEN 24 mg/dL 7-21 (BEAKER) (test sdrk=965) CREATININE (BEAKER) (test 1.15 mg/dL 0.57-1.25 fxce=011) GLUCOSE RANDOM (BEAKER) 104 mg/dL 70-105 (test opps=219) CALCIUM (BEAKER) (test 9.1 mg/dL 8.4-10.2 luso=427) EGFR (BEAKER) (test 64 mL/min/1.73 sq m ESTIMATED GFR IS NOT nmdh=1314) ACCURATE CREATININE CLEARANCE IN PREDICTING GLOMERULAR FILTRATION RATE. ESTIMATED GFR IS NOT APPLICABLE FOR DIALYSIS PATIENTS. HEPATIC FUNCTION [id number] 06:16:00 Test Item Value Reference Range Comments TOTAL PROTEIN (BEAKER) (test ziik=213) 8.2 gm/dL 6.0-8.3 ALBUMIN (BEAKER) (test pwvy=2022) 2.9 g/dL 3.5-5.0 BILIRUBIN TOTAL (BEAKER) (test ccbe=436) 1.1 mg/dL 0.2-1.2 BILIRUBIN DIRECT (BEAKER) (test ylji=902) 0.5 mg/dL 0.1-0.5 ALKALINE PHOSPHATASE (BEAKER) (test vgrq=001) 164 U/L 40-150 AST (SGOT) (BEAKER) (test pnoj=277) 76 U/L 5-34 ALT (SGPT) (BEAKER) (test ijqh=090) 34 U/L 6-55 CALCIUM, [id number] 06:00:00 Test Item Value Reference Range Comments CALCIUM IONIZED (BEAKER) (test fzyh=029) 0.93 mmol/L 1.12-1.27 PH, BLOOD (BEAKER) (test ykms=8600) 7.52 URINALYSIS W/ [id number] 18:32:00 Test Item Value Reference Range Comments COLOR (BEAKER) (test mmwc=142) Light Yellow CLARITY (BEAKER) (test zhkz=015) Clear SPECIFIC GRAVITY UA (BEAKER) (test hvyf=008) 1.006 1.001-1.035 PH UA (BEAKER) (test uxyc=153) 7.0 5.0-8.0 PROTEIN UA (BEAKER) (test mchg=570) Negative Negative GLUCOSE UA (BEAKER) (test kmxz=505) Negative Negative KETONES UA (BEAKER) (test wuvo=545) Negative Negative BILIRUBIN UA (BEAKER) (test uddp=809) Negative Negative BLOOD UA (BEAKER) (test ajmf=445) Trace Negative NITRITE UA (BEAKER) (test kujs=456) Negative Negative LEUKOCYTE ESTERASE UA (BEAKER) (test ujsd=612) Small Negative UROBILINOGEN UA (BEAKER) (test natb=664) 0.2 mg/dL 0.2-1.0 RBC UA (BEAKER) (test krbf=962) 1 /HPF WBC UA (BEAKER) (test ohwm=538) 7 /HPF BACTERIA (BEAKER) (test acky=289) Rare MUCUS (BEAKER) (test qqhp=0894) Rare SQUAMOUS EPITHELIAL (BEAKER) (test qput=966) 4 /HPF SOURCE(BEAKER) (test bste=8560) Urine, Voided CALCIUM, [id number] 07:19:00 Test Item Value Reference Range Comments CALCIUM IONIZED (BEAKER) (test exhg=418) 1.03 mmol/L 1.12-1.27 PH, BLOOD (BEAKER) (test vqpl=1146) 7.40 CBC W/PLT COUNT & AUTO [id number] 06:26:00 Test Item Value Reference Range Comments WHITE BLOOD CELL COUNT (BEAKER) (test rctc=506) 18.5 K/ L 3.5-10.5 RED BLOOD CELL COUNT (BEAKER) (test uzkc=576) 2.02 M/ L 3.93-5.22 HEMOGLOBIN (BEAKER) (test nlsa=036) 6.0 GM/DL 11.2-15.7 HEMATOCRIT (BEAKER) (test ponj=435) 18.5 % 34.1-44.9 MEAN CORPUSCULAR VOLUME (BEAKER) (test bmsf=758) 91.6 fL 79.4-94.8 MEAN CORPUSCULAR HEMOGLOBIN (BEAKER) (test 29.7 pg 25.6-32.2 ccgc=218) MEAN CORPUSCULAR HEMOGLOBIN CONC (BEAKER) (test 32.4 GM/DL 32.2-35.5 qyly=950) RED CELL DISTRIBUTION WIDTH (BEAKER) (test 21.9 % 11.7-14.4 evnk=253) PLATELET COUNT (BEAKER) (test xena=114) 337 K/CU MM 150-450 MEAN PLATELET VOLUME (BEAKER) (test pzkf=456) 11.7 fL 9.4-12.3 NUCLEATED RED BLOOD CELLS (BEAKER) (test 4 /100 WBC 0-0 txtd=310) NEUTROPHILS RELATIVE PERCENT (BEAKER) (test 76 % zgpj=659) LYMPHOCYTES RELATIVE PERCENT (BEAKER) (test 16 % ehnd=622) MONOCYTES RELATIVE PERCENT (BEAKER) (test 6 % tzuw=142) EOSINOPHILS RELATIVE PERCENT (BEAKER) (test 1 % ndeb=963) BASOPHILS RELATIVE PERCENT (BEAKER) (test 0 % kfad=991) NEUTROPHILS ABSOLUTE COUNT (BEAKER) (test 13.98 K/ L 1.56-6.13 scxm=848) LYMPHOCYTES ABSOLUTE COUNT (BEAKER) (test 3.02 K/ L 1.18-3.74 lmmc=468) MONOCYTES ABSOLUTE COUNT (BEAKER) (test 1.13 K/ L 0.24-0.36 yjhd=683) EOSINOPHILS ABSOLUTE COUNT (BEAKER) (test 0.09 K/ L 0.04-0.36 utyn=914) BASOPHILS ABSOLUTE COUNT (BEAKER) (test 0.05 K/ L 0.01-0.08 tkld=823) IMMATURE GRANULOCYTES-RELATIVE PERCENT (BEAKER) 1 % 0-1 (test gmuv=3739) [id number] 06:21:00 Test Item Value Reference Range Comments PHOSPHORUS (BEAKER) (test bnkh=952) 4.3 mg/dL 2.3-4.7 [id number] 06:21:00 Test Item Value Reference Range Comments MAGNESIUM (BEAKER) (test qjot=992) 2.1 mg/dL 1.6-2.6 BASIC METABOLIC [id number] 06:21:00 Test Item Value Reference Range Comments SODIUM (BEAKER) (test 139 meq/L 136-145 woyc=191) POTASSIUM (BEAKER) (test 4.0 meq/L 3.5-5.1 baes=806) CHLORIDE (BEAKER) (test 99 meq/L 98-107 ttss=621) CO2 (BEAKER) (test 31 meq/L 22-29 jdwp=123) BLOOD UREA NITROGEN 23 mg/dL 7-21 (BEAKER) (test xprs=606) CREATININE (BEAKER) (test 1.29 mg/dL 0.57-1.25 rmfx=213) GLUCOSE RANDOM (BEAKER) 116 mg/dL 70-105 (test wzps=490) CALCIUM (BEAKER) (test 8.8 mg/dL 8.4-10.2 kxpd=825) EGFR (BEAKER) (test 56 mL/min/1.73 sq m ESTIMATED GFR IS NOT nbmz=5979) ACCURATE CREATININE CLEARANCE IN PREDICTING GLOMERULAR FILTRATION RATE. ESTIMATED GFR IS NOT APPLICABLE FOR DIALYSIS PATIENTS. B-TYPE NATRIURETIC FACTOR (BNP)2017-11-13 07:27:00 Test Item Value Reference Range Comments B-TYPE NATRIURETIC PEPTIDE (BEAKER) (test 166 pg/mL 0-100 wdah=474) [id number] 07:26:00 Test Item Value Reference Range Comments PHOSPHORUS (BEAKER) (test rxyz=289) 4.6 mg/dL 2.3-4.7 [id number] 07:26:00 Test Item Value Reference Range Comments MAGNESIUM (BEAKER) (test nxlg=502) 1.6 mg/dL 1.6-2.6 BASIC METABOLIC [id number] 07:26:00 Test Item Value Reference Range Comments SODIUM (BEAKER) (test 139 meq/L 136-145 aknf=258) POTASSIUM (BEAKER) (test 3.5 meq/L 3.5-5.1 dgtc=668) CHLORIDE (BEAKER) (test 101 meq/L 98-107 mwik=101) CO2 (BEAKER) (test 32 meq/L 22-29 kydf=535) BLOOD UREA NITROGEN 14 mg/dL 7-21 (BEAKER) (test iyiy=783) CREATININE (BEAKER) (test 1.09 mg/dL 0.57-1.25 pofm=191) GLUCOSE RANDOM (BEAKER) 92 mg/dL 70-105 (test ygba=213) CALCIUM (BEAKER) (test 8.5 mg/dL 8.4-10.2 lqnm=400) EGFR (BEAKER) (test 68 mL/min/1.73 sq m ESTIMATED GFR IS NOT cahn=0805) ACCURATE CREATININE CLEARANCE IN PREDICTING GLOMERULAR FILTRATION RATE. ESTIMATED GFR IS NOT APPLICABLE FOR DIALYSIS PATIENTS. CBC W/PLT COUNT & AUTO [id number] 07:23:00 Test Item Value Reference Range Comments WHITE BLOOD CELL COUNT (BEAKER) (test tmzc=554) 18.4 K/ L 3.5-10.5 RED BLOOD CELL COUNT (BEAKER) (test qzjm=623) 2.03 M/ L 3.93-5.22 HEMOGLOBIN (BEAKER) (test rfvd=598) 6.0 GM/DL 11.2-15.7 HEMATOCRIT (BEAKER) (test evew=391) 18.8 % 34.1-44.9 MEAN CORPUSCULAR VOLUME (BEAKER) (test nduv=326) 92.6 fL 79.4-94.8 MEAN CORPUSCULAR HEMOGLOBIN (BEAKER) (test 29.6 pg 25.6-32.2 obva=753) MEAN CORPUSCULAR HEMOGLOBIN CONC (BEAKER) (test 31.9 GM/DL 32.2-35.5 njrw=145) RED CELL DISTRIBUTION WIDTH (BEAKER) (test 22.9 % 11.7-14.4 coid=769) PLATELET COUNT (BEAKER) (test vamv=799) 302 K/CU MM 150-450 MEAN PLATELET VOLUME (BEAKER) (test jwuc=748) 11.3 fL 9.4-12.3 NUCLEATED RED BLOOD CELLS (BEAKER) (test 7 /100 WBC 0-0 qjqx=696) NEUTROPHILS RELATIVE PERCENT (BEAKER) (test 74 % wweb=901) LYMPHOCYTES RELATIVE PERCENT (BEAKER) (test 18 % lcnm=351) MONOCYTES RELATIVE PERCENT (BEAKER) (test 7 % znlc=562) EOSINOPHILS RELATIVE PERCENT (BEAKER) (test 0 % gegv=273) BASOPHILS RELATIVE PERCENT (BEAKER) (test 0 % bxbq=127) NEUTROPHILS ABSOLUTE COUNT (BEAKER) (test 13.58 K/ L 1.56-6.13 alay=641) LYMPHOCYTES ABSOLUTE COUNT (BEAKER) (test 3.24 K/ L 1.18-3.74 ldch=550) MONOCYTES ABSOLUTE COUNT (BEAKER) (test 1.23 K/ L 0.24-0.36 zqhx=090) EOSINOPHILS ABSOLUTE COUNT (BEAKER) (test 0.07 K/ L 0.04-0.36 itaf=768) BASOPHILS ABSOLUTE COUNT (BEAKER) (test 0.05 K/ L 0.01-0.08 cbcw=708) IMMATURE GRANULOCYTES-RELATIVE PERCENT (BEAKER) 1 % 0-1 (test udza=6256) CALCIUM, [id number] 07:08:00 Test Item Value Reference Range Comments CALCIUM IONIZED (BEAKER) (test vncy=408) 1.03 mmol/L 1.12-1.27 PH, BLOOD (BEAKER) (test iglk=4368) 7.38 CBC W/PLT COUNT & AUTO [id number] 08:23:00 Test Item Value Reference Range Comments WHITE BLOOD CELL COUNT (BEAKER) (test sstf=076) 20.4 K/ L 3.5-10.5 RED BLOOD CELL COUNT (BEAKER) (test slsm=541) 2.08 M/ L 3.93-5.22 HEMOGLOBIN (BEAKER) (test ocww=792) 6.4 GM/DL 11.2-15.7 HEMATOCRIT (BEAKER) (test noiv=367) 19.7 % 34.1-44.9 MEAN CORPUSCULAR VOLUME (BEAKER) (test tjop=491) 94.7 fL 79.4-94.8 MEAN CORPUSCULAR HEMOGLOBIN (BEAKER) (test 30.8 pg 25.6-32.2 yuog=691) MEAN CORPUSCULAR HEMOGLOBIN CONC (BEAKER) (test 32.5 GM/DL 32.2-35.5 efct=416) RED CELL DISTRIBUTION WIDTH (BEAKER) (test 24.3 % 11.7-14.4 gakt=324) PLATELET COUNT (BEAKER) (test nbev=804) 290 K/CU MM 150-450 MEAN PLATELET VOLUME (BEAKER) (test ljjk=803) 11.5 fL 9.4-12.3 NUCLEATED RED BLOOD CELLS (BEAKER) (test 19 /100 WBC 0-0 aguy=409) NEUTROPHILS RELATIVE PERCENT (BEAKER) (test 75 % efgl=718) LYMPHOCYTES RELATIVE PERCENT (BEAKER) (test 16 % thpq=975) MONOCYTES RELATIVE PERCENT (BEAKER) (test 8 % xdkp=260) EOSINOPHILS RELATIVE PERCENT (BEAKER) (test 0 % opxs=994) BASOPHILS RELATIVE PERCENT (BEAKER) (test 0 % agmg=988) NEUTROPHILS ABSOLUTE COUNT (BEAKER) (test 15.32 K/ L 1.56-6.13 lqeu=929) LYMPHOCYTES ABSOLUTE COUNT (BEAKER) (test 3.24 K/ L 1.18-3.74 ozyu=903) MONOCYTES ABSOLUTE COUNT (BEAKER) (test 1.61 K/ L 0.24-0.36 imld=976) EOSINOPHILS ABSOLUTE COUNT (BEAKER) (test 0.05 K/ L 0.04-0.36 tunq=968) BASOPHILS ABSOLUTE COUNT (BEAKER) (test 0.04 K/ L 0.01-0.08 tcjm=745) IMMATURE GRANULOCYTES-RELATIVE PERCENT (BEAKER) 0 % 0-1 (test hdzl=7310) (MANUAL DIFFERENTIAL)2017-11-12 08:23:00 Test Item Value Reference Range Comments TOTAL COUNTED (BEAKER) (test mjdq=6980) WBC MORPHOLOGY (BEAKER) (test qlur=971) Normal LARGE PLT(BEAKER) (test mqki=4881) Present HYPOCHROMIA (BEAKER) (test faxv=053) 1+ few POLYCHROMATOPHILLIC RBCS(BEAKER) (test oyht=811) 1+ few SICKLE CELLS (BEAKER) (test dqee=778) 1+ few TARGET CELLS (BEAKER) (test cldt=158) 1+ few [id number] 08:11:00 Test Item Value Reference Range Comments PHOSPHORUS (BEAKER) (test jnjr=755) 4.3 mg/dL 2.3-4.7 [id number] 08:11:00 Test Item Value Reference Range Comments MAGNESIUM (BEAKER) (test eerg=757) 1.3 mg/dL 1.6-2.6 BASIC METABOLIC [id number] 08:11:00 Test Item Value Reference Range Comments SODIUM (BEAKER) (test 140 meq/L 136-145 tesh=240) POTASSIUM (BEAKER) (test 3.4 meq/L 3.5-5.1 zmdg=230) CHLORIDE (BEAKER) (test 103 meq/L 98-107 yyaf=424) CO2 (BEAKER) (test 27 meq/L 22-29 qivc=861) BLOOD UREA NITROGEN 15 mg/dL 7-21 (BEAKER) (test mgjh=946) CREATININE (BEAKER) (test 1.10 mg/dL 0.57-1.25 mkst=045) GLUCOSE RANDOM (BEAKER) 91 mg/dL 70-105 (test umkz=685) CALCIUM (BEAKER) (test 8.5 mg/dL 8.4-10.2 catm=659) EGFR (BEAKER) (test 67 mL/min/1.73 sq m ESTIMATED GFR IS NOT xbsn=9979) ACCURATE CREATININE CLEARANCE IN PREDICTING GLOMERULAR FILTRATION RATE. ESTIMATED GFR IS NOT APPLICABLE FOR DIALYSIS PATIENTS. CALCIUM, [id number] 07:19:00 Test Item Value Reference Range Comments CALCIUM IONIZED (BEAKER) (test sbao=132) 0.98 mmol/L 1.12-1.27 PH, BLOOD (BEAKER) (test iyha=3140) 7.39 BLOOD [id number] 00:00:00 Test Item Value Reference Range Comments CULTURE (BEAKER) (test xxic=3496) No growth in 5 days CBC W/PLT COUNT & AUTO [id number] 13:18:00 Test Item Value Reference Range Comments WHITE BLOOD CELL COUNT (BEAKER) (test rwyz=291) 20.7 K/ L 3.5-10.5 RED BLOOD CELL COUNT (BEAKER) (test qtpv=723) 2.12 M/ L 3.93-5.22 HEMOGLOBIN (BEAKER) (test nvfx=329) 6.7 GM/DL 11.2-15.7 HEMATOCRIT (BEAKER) (test rsip=745) 20.4 % 34.1-44.9 MEAN CORPUSCULAR VOLUME (BEAKER) (test zmje=623) 96.2 fL 79.4-94.8 MEAN CORPUSCULAR HEMOGLOBIN (BEAKER) (test 31.6 pg 25.6-32.2 bklh=826) MEAN CORPUSCULAR HEMOGLOBIN CONC (BEAKER) (test 32.8 GM/DL 32.2-35.5 dcsu=611) RED CELL DISTRIBUTION WIDTH (BEAKER) (test 25.9 % 11.7-14.4 oify=043) PLATELET COUNT (BEAKER) (test inqt=270) 262 K/CU MM 150-450 MEAN PLATELET VOLUME (BEAKER) (test okdb=270) 11.2 fL 9.4-12.3 NUCLEATED RED BLOOD CELLS (BEAKER) (test 40 /100 WBC 0-0 vxxb=626) NEUTROPHILS RELATIVE PERCENT (BEAKER) (test 76 % eovz=807) LYMPHOCYTES RELATIVE PERCENT (BEAKER) (test 16 % iwgj=877) MONOCYTES RELATIVE PERCENT (BEAKER) (test 8 % uytd=236) EOSINOPHILS RELATIVE PERCENT (BEAKER) (test 0 % lazi=769) BASOPHILS RELATIVE PERCENT (BEAKER) (test 0 % bbne=272) NEUTROPHILS ABSOLUTE COUNT (BEAKER) (test 15.60 K/ L 1.56-6.13 hjzv=186) LYMPHOCYTES ABSOLUTE COUNT (BEAKER) (test 3.23 K/ L 1.18-3.74 vqxu=945) MONOCYTES ABSOLUTE COUNT (BEAKER) (test 1.54 K/ L 0.24-0.36 ekkj=426) EOSINOPHILS ABSOLUTE COUNT (BEAKER) (test 0.02 K/ L 0.04-0.36 fjzv=655) BASOPHILS ABSOLUTE COUNT (BEAKER) (test 0.05 K/ L 0.01-0.08 qigk=093) IMMATURE GRANULOCYTES-RELATIVE PERCENT (BEAKER) 1 % 0-1 (test gcph=3230) (MANUAL DIFFERENTIAL)2017-11-11 13:18:00 Test Item Value Reference Range Comments TOTAL COUNTED (BEAKER) (test hmcc=4666) WBC MORPHOLOGY (BEAKER) (test rusj=781) Normal LARGE PLT(BEAKER) (test jeiq=6363) Present POLYCHROMATOPHILLIC RBCS(BEAKER) (test vwiw=942) 1+ few SICKLE CELLS (BEAKER) (test elmz=252) 1+ few TARGET CELLS (BEAKER) (test khez=460) 1+ few [id number] 08:05:00 Test Item Value Reference Range Comments PHOSPHORUS (BEAKER) (test cttz=674) 5.0 mg/dL 2.3-4.7 [id number] 08:05:00 Test Item Value Reference Range Comments MAGNESIUM (BEAKER) (test lmqd=664) 1.6 mg/dL 1.6-2.6 BASIC METABOLIC [id number] 08:05:00 Test Item Value Reference Range Comments SODIUM (BEAKER) (test 140 meq/L 136-145 tnrn=001) POTASSIUM (BEAKER) (test 3.7 meq/L 3.5-5.1 mhru=927) CHLORIDE (BEAKER) (test 107 meq/L 98-107 gzwl=611) CO2 (BEAKER) (test 24 meq/L 22-29 bthy=322) BLOOD UREA NITROGEN 19 mg/dL 7-21 (BEAKER) (test ftuk=183) CREATININE (BEAKER) (test 1.23 mg/dL 0.57-1.25 bjwv=253) GLUCOSE RANDOM (BEAKER) 96 mg/dL 70-105 (test ixjy=283) CALCIUM (BEAKER) (test 8.5 mg/dL 8.4-10.2 tbvr=661) EGFR (BEAKER) (test 59 mL/min/1.73 sq m ESTIMATED GFR IS NOT mcgi=5473) ACCURATE CREATININE CLEARANCE IN PREDICTING GLOMERULAR FILTRATION RATE. ESTIMATED GFR IS NOT APPLICABLE FOR DIALYSIS PATIENTS. CALCIUM, [id number] 06:38:00 Test Item Value Reference Range Comments CALCIUM IONIZED (BEAKER) (test yalz=094) 1.07 mmol/L 1.12-1.27 PH, BLOOD (BEAKER) (test wxxc=6706) 7.31 CBC W/PLT COUNT & AUTO [id number] 14:53:00 Test Item Value Reference Range Comments WHITE BLOOD CELL COUNT (BEAKER) (test pfnr=407) 21.8 K/ L 3.5-10.5 RED BLOOD CELL COUNT (BEAKER) (test kidf=940) 2.17 M/ L 3.93-5.22 HEMOGLOBIN (BEAKER) (test udfi=058) 6.8 GM/DL 11.2-15.7 HEMATOCRIT (BEAKER) (test izuy=814) 21.3 % 34.1-44.9 MEAN CORPUSCULAR VOLUME (BEAKER) (test afjt=298) 98.2 fL 79.4-94.8 MEAN CORPUSCULAR HEMOGLOBIN (BEAKER) (test 31.3 pg 25.6-32.2 bmyq=999) MEAN CORPUSCULAR HEMOGLOBIN CONC (BEAKER) (test 31.9 GM/DL 32.2-35.5 khxk=092) RED CELL DISTRIBUTION WIDTH (BEAKER) (test 27.6 % 11.7-14.4 lskt=844) PLATELET COUNT (BEAKER) (test nfxu=472) 244 K/CU MM 150-450 MEAN PLATELET VOLUME (BEAKER) (test laes=292) 11.4 fL 9.4-12.3 NUCLEATED RED BLOOD CELLS (BEAKER) (test 80 /100 WBC 0-0 ttdw=868) NEUTROPHILS RELATIVE PERCENT (BEAKER) (test 82 % ocfs=150) LYMPHOCYTES RELATIVE PERCENT (BEAKER) (test 7 % kymv=376) MONOCYTES RELATIVE PERCENT (BEAKER) (test 10 % mhdh=502) EOSINOPHILS RELATIVE PERCENT (BEAKER) (test 0 % wbyd=162) BASOPHILS RELATIVE PERCENT (BEAKER) (test 0 % sapf=343) NEUTROPHILS ABSOLUTE COUNT (BEAKER) (test 17.85 K/ L 1.56-6.13 ptwt=125) LYMPHOCYTES ABSOLUTE COUNT (BEAKER) (test 1.60 K/ L 1.18-3.74 wcns=733) MONOCYTES ABSOLUTE COUNT (BEAKER) (test 2.14 K/ L 0.24-0.36 vyiy=474) EOSINOPHILS ABSOLUTE COUNT (BEAKER) (test 0.03 K/ L 0.04-0.36 kbwj=165) BASOPHILS ABSOLUTE COUNT (BEAKER) (test 0.03 K/ L 0.01-0.08 nmqk=674) IMMATURE GRANULOCYTES-RELATIVE PERCENT (BEAKER) 1 % 0-1 (test jufi=6519) (MANUAL DIFFERENTIAL)2017-11-10 14:53:00 Test Item Value Reference Range Comments TOTAL COUNTED (BEAKER) (test fpbp=8870) WBC MORPHOLOGY (BEAKER) (test fitr=193) Normal LARGE PLT(BEAKER) (test awyx=6654) Present SCHISTOCYTES (BEAKER) (test txjj=782) 1+ few ACANTHOCYTES (BEAKER) (test gekc=929) 1+ few ANISOCYTOSIS (BEAKER) (test fbab=597) 2+ moderate HYPOCHROMIA (BEAKER) (test uhol=686) 2+ moderate MACROCYTES (BEAKER) (test fdmj=544) 3+ many MICROCYTES (BEAKER) (test wehw=816) 2+ moderate OVALOCYTES (BEAKER) (test tfsu=517) 1+ few POIKILOCYTES (BEAKER) (test wjuq=748) 3+ many POLYCHROMATOPHILLIC RBCS(BEAKER) (test lukf=462) 2+ moderate SICKLE CELLS (BEAKER) (test daoe=245) 2+ moderate TARGET CELLS (BEAKER) (test oumi=718) 1+ few BASIC METABOLIC [id number] 08:54:00 Test Item Value Reference Range Comments SODIUM (BEAKER) (test 140 meq/L 136-145 javt=161) POTASSIUM (BEAKER) (test 4.0 meq/L 3.5-5.1 cpru=337) CHLORIDE (BEAKER) (test 109 meq/L 98-107 anro=489) CO2 (BEAKER) (test 19 meq/L 22-29 ogdu=822) BLOOD UREA NITROGEN 21 mg/dL 7-21 (BEAKER) (test zyum=157) CREATININE (BEAKER) (test 1.27 mg/dL 0.57-1.25 zyqr=998) GLUCOSE RANDOM (BEAKER) 122 mg/dL 70-105 (test evpp=313) CALCIUM (BEAKER) (test 8.6 mg/dL 8.4-10.2 wawp=245) EGFR (BEAKER) (test 57 mL/min/1.73 sq m ESTIMATED GFR IS NOT fvds=0555) ACCURATE CREATININE CLEARANCE IN PREDICTING GLOMERULAR FILTRATION RATE. ESTIMATED GFR IS NOT APPLICABLE FOR DIALYSIS PATIENTS. [id number] 08:54:00 Test Item Value Reference Range Comments MAGNESIUM (BEAKER) (test prug=695) 1.5 mg/dL 1.6-2.6 [id number] 08:54:00 Test Item Value Reference Range Comments PHOSPHORUS (BEAKER) (test fmbt=130) 4.5 mg/dL 2.3-4.7 COMPREHENSIVE METABOLIC [id number] 08:54:00 Test Item Value Reference Range Comments TOTAL PROTEIN (BEAKER) 8.2 gm/dL 6.0-8.3 (test rpga=931) ALBUMIN (BEAKER) (test 3.1 g/dL 3.5-5.0 fbkb=3796) ALKALINE PHOSPHATASE 154 U/L 40-150 (BEAKER) (test qlkj=477) BILIRUBIN TOTAL (BEAKER) 1.4 mg/dL 0.2-1.2 (test cari=565) SODIUM (BEAKER) (test 140 meq/L 136-145 ozth=911) POTASSIUM (BEAKER) (test 4.0 meq/L 3.5-5.1 uxvu=201) CHLORIDE (BEAKER) (test 109 meq/L 98-107 btfv=482) CO2 (BEAKER) (test 19 meq/L 22-29 spxc=299) BLOOD UREA NITROGEN 21 mg/dL 7-21 (BEAKER) (test ymsu=093) CREATININE (BEAKER) (test 1.27 mg/dL 0.57-1.25 hiak=252) GLUCOSE RANDOM (BEAKER) 122 mg/dL 70-105 (test amtz=453) CALCIUM (BEAKER) (test 8.6 mg/dL 8.4-10.2 mnxo=331) AST (SGOT) (BEAKER) (test 72 U/L 5-34 cbjt=577) ALT (SGPT) (BEAKER) (test 50 U/L 6-55 ebuz=118) EGFR (BEAKER) (test 57 mL/min/1.73 sq m ESTIMATED GFR IS NOT zxzd=1180) ACCURATE CREATININE CLEARANCE IN PREDICTING GLOMERULAR FILTRATION RATE. ESTIMATED GFR IS NOT APPLICABLE FOR DIALYSIS PATIENTS. CALCIUM, [id number] 07:21:00 Test Item Value Reference Range Comments CALCIUM IONIZED (BEAKER) (test jkso=338) 1.04 mmol/L 1.12-1.27 PH, BLOOD (BEAKER) (test jtnm=7434) 7.39 CBC W/PLT COUNT & AUTO [id number] 12:10:00 Test Item Value Reference Range Comments WHITE BLOOD CELL COUNT (BEAKER) (test onix=923) 20.8 K/ L 3.5-10.5 RED BLOOD CELL COUNT (BEAKER) (test gpln=987) 2.11 M/ L 3.93-5.22 HEMOGLOBIN (BEAKER) (test ikog=271) 6.6 GM/DL 11.2-15.7 HEMATOCRIT (BEAKER) (test fhmn=022) 20.4 % 34.1-44.9 MEAN CORPUSCULAR VOLUME (BEAKER) (test wyjb=323) 96.7 fL 79.4-94.8 MEAN CORPUSCULAR HEMOGLOBIN (BEAKER) (test 31.3 pg 25.6-32.2 nsih=049) MEAN CORPUSCULAR HEMOGLOBIN CONC (BEAKER) (test 32.4 GM/DL 32.2-35.5 zuvm=369) RED CELL DISTRIBUTION WIDTH (BEAKER) (test 27.2 % 11.7-14.4 viwm=328) PLATELET COUNT (BEAKER) (test cnnx=301) 237 K/CU MM 150-450 MEAN PLATELET VOLUME (BEAKER) (test yeqf=662) 10.7 fL 9.4-12.3 NUCLEATED RED BLOOD CELLS (BEAKER) (test 98 /100 WBC 0-0 mjrl=105) NEUTROPHILS RELATIVE PERCENT (BEAKER) (test 82 % bpwp=316) LYMPHOCYTES RELATIVE PERCENT (BEAKER) (test 6 % isdd=883) MONOCYTES RELATIVE PERCENT (BEAKER) (test 11 % nvje=896) EOSINOPHILS RELATIVE PERCENT (BEAKER) (test 0 % hlms=006) BASOPHILS RELATIVE PERCENT (BEAKER) (test 0 % mteh=158) NEUTROPHILS ABSOLUTE COUNT (BEAKER) (test 16.91 K/ L 1.56-6.13 ajze=619) LYMPHOCYTES ABSOLUTE COUNT (BEAKER) (test 1.31 K/ L 1.18-3.74 mshw=445) MONOCYTES ABSOLUTE COUNT (BEAKER) (test 2.37 K/ L 0.24-0.36 rsmj=620) EOSINOPHILS ABSOLUTE COUNT (BEAKER) (test 0.01 K/ L 0.04-0.36 ahhg=250) BASOPHILS ABSOLUTE COUNT (BEAKER) (test 0.05 K/ L 0.01-0.08 yquq=459) IMMATURE GRANULOCYTES-RELATIVE PERCENT (BEAKER) 1 % 0-1 (test tkzi=3117) (MANUAL DIFFERENTIAL)2017-11-09 12:10:00 Test Item Value Reference Range Comments TOTAL COUNTED (BEAKER) (test pdsn=7567) WBC MORPHOLOGY (BEAKER) (test ssll=542) Normal PLT MORPHOLOGY (BEAKER) (test jjij=363) Normal ANISOCYTOSIS (BEAKER) (test qnuc=149) 2+ moderate MATTHEWS-JOLLY BODIES (BEAKER) (test pwar=898) 1+ few POIKILOCYTES (BEAKER) (test ntih=677) 2+ moderate POLYCHROMATOPHILLIC RBCS(BEAKER) (test uhrp=058) 1+ few SICKLE CELLS (BEAKER) (test qcpk=175) 2+ moderate TARGET CELLS (BEAKER) (test oofg=549) 1+ few CALCIUM, [id number] 07:44:00 Test Item Value Reference Range Comments CALCIUM IONIZED (BEAKER) (test fflk=761) 1.16 mmol/L 1.12-1.27 PH, BLOOD (BEAKER) (test rjjf=8046) 7.25 B-TYPE NATRIURETIC FACTOR (BNP)2017-11-09 07:43:00 Test Item Value Reference Range Comments B-TYPE NATRIURETIC PEPTIDE (BEAKER) (test 903 pg/mL 0-100 bnrz=601) [id number] 07:27:00 Test Item Value Reference Range Comments PHOSPHORUS (BEAKER) (test jbej=692) 4.4 mg/dL 2.3-4.7 [id number] 07:27:00 Test Item Value Reference Range Comments MAGNESIUM (BEAKER) (test asgz=177) 1.7 mg/dL 1.6-2.6 COMPREHENSIVE METABOLIC [id number] 07:27:00 Test Item Value Reference Range Comments TOTAL PROTEIN (BEAKER) 7.8 gm/dL 6.0-8.3 (test mtsr=399) ALBUMIN (BEAKER) (test 3.2 g/dL 3.5-5.0 tiwe=4684) ALKALINE PHOSPHATASE 165 U/L 40-150 (BEAKER) (test swrn=822) BILIRUBIN TOTAL (BEAKER) 1.3 mg/dL 0.2-1.2 (test offn=849) SODIUM (BEAKER) (test 143 meq/L 136-145 tmvx=303) POTASSIUM (BEAKER) (test 4.2 meq/L 3.5-5.1 sscx=699) CHLORIDE (BEAKER) (test 112 meq/L 98-107 zhzi=028) CO2 (BEAKER) (test 23 meq/L 22-29 oyzy=951) BLOOD UREA NITROGEN 29 mg/dL 7-21 (BEAKER) (test wvlm=472) CREATININE (BEAKER) (test 1.54 mg/dL 0.57-1.25 fedp=249) GLUCOSE RANDOM (BEAKER) 108 mg/dL 70-105 (test wsmv=044) CALCIUM (BEAKER) (test 9.1 mg/dL 8.4-10.2 yswp=742) AST (SGOT) (BEAKER) (test 110 U/L 5-34 pnmm=480) ALT (SGPT) (BEAKER) (test 64 U/L 6-55 itfn=577) EGFR (BEAKER) (test 46 mL/min/1.73 sq m ESTIMATED GFR IS NOT jnkh=6808) ACCURATE CREATININE CLEARANCE IN PREDICTING GLOMERULAR FILTRATION RATE. ESTIMATED GFR IS NOT APPLICABLE FOR DIALYSIS PATIENTS. BASIC METABOLIC [id number] 07:27:00 Test Item Value Reference Range Comments SODIUM (BEAKER) (test 143 meq/L 136-145 xozs=390) POTASSIUM (BEAKER) (test 4.2 meq/L 3.5-5.1 qntu=263) CHLORIDE (BEAKER) (test 112 meq/L 98-107 ltjo=346) CO2 (BEAKER) (test 23 meq/L 22-29 fzmm=561) BLOOD UREA NITROGEN 29 mg/dL 7-21 (BEAKER) (test skhi=706) CREATININE (BEAKER) (test 1.54 mg/dL 0.57-1.25 zyck=284) GLUCOSE RANDOM (BEAKER) 108 mg/dL 70-105 (test pqne=430) CALCIUM (BEAKER) (test 9.1 mg/dL 8.4-10.2 hvdt=909) EGFR (BEAKER) (test 46 mL/min/1.73 sq m ESTIMATED GFR IS NOT xoxh=9740) ACCURATE CREATININE CLEARANCE IN PREDICTING GLOMERULAR FILTRATION RATE. ESTIMATED GFR IS NOT APPLICABLE FOR DIALYSIS PATIENTS. RAD, CHEST, 1 VIEW, NON [id number] 20:41:00Reason for exam:->edemaShould this be performed at [...] MDReport Verified Date/Time: 11/08/2017 20:41:24 Reading Location: [address] Reading Room Electronically signed by: CLIFF SALCIDO M.D. on 08:41 PMEOSINOPHIL SMEAR, [id number] 12:49:00 Test Item Value Reference Range Comments EOSINOPHIL SMEAR, URINE (BEAKER) (test No EOS seen No EOS seen milg=3642) CBC W/PLT COUNT & AUTO [id number] 10:40:00 Test Item Value Reference Range Comments WHITE BLOOD CELL COUNT (BEAKER) (test tvla=003) 18.6 K/ L 3.5-10.5 RED BLOOD CELL COUNT (BEAKER) (test xopl=918) 2.21 M/ L 3.93-5.22 HEMOGLOBIN (BEAKER) (test eqas=613) 6.8 GM/DL 11.2-15.7 HEMATOCRIT (BEAKER) (test wkow=608) 20.6 % 34.1-44.9 MEAN CORPUSCULAR VOLUME (BEAKER) (test cpxp=112) 93.2 fL 79.4-94.8 MEAN CORPUSCULAR HEMOGLOBIN (BEAKER) (test 30.8 pg 25.6-32.2 bxdg=675) MEAN CORPUSCULAR HEMOGLOBIN CONC (BEAKER) (test 33.0 GM/DL 32.2-35.5 mmyr=412) RED CELL DISTRIBUTION WIDTH (BEAKER) (test 25.5 % 11.7-14.4 hqul=607) PLATELET COUNT (BEAKER) (test bgln=537) 255 K/CU MM 150-450 MEAN PLATELET VOLUME (BEAKER) (test mhnd=359) 10.6 fL 9.4-12.3 NUCLEATED RED BLOOD CELLS (BEAKER) (test 87 /100 WBC 0-0 tifj=974) NEUTROPHILS RELATIVE PERCENT (BEAKER) (test 70 % ldaw=623) LYMPHOCYTES RELATIVE PERCENT (BEAKER) (test 14 % vabo=985) MONOCYTES RELATIVE PERCENT (BEAKER) (test 14 % vtzd=161) EOSINOPHILS RELATIVE PERCENT (BEAKER) (test 0 % ppiw=266) BASOPHILS RELATIVE PERCENT (BEAKER) (test 0 % yjuc=515) NEUTROPHILS ABSOLUTE COUNT (BEAKER) (test 12.98 K/ L 1.56-6.13 qrsg=056) LYMPHOCYTES ABSOLUTE COUNT (BEAKER) (test 2.67 K/ L 1.18-3.74 zpez=773) MONOCYTES ABSOLUTE COUNT (BEAKER) (test 2.65 K/ L 0.24-0.36 zkjc=045) EOSINOPHILS ABSOLUTE COUNT (BEAKER) (test 0.07 K/ L 0.04-0.36 lyfq=946) BASOPHILS ABSOLUTE COUNT (BEAKER) (test 0.05 K/ L 0.01-0.08 kkuy=785) IMMATURE GRANULOCYTES-RELATIVE PERCENT (BEAKER) 1 % 0-1 (test xjwp=4969) (MANUAL DIFFERENTIAL)2017-11-08 10:40:00 Test Item Value Reference Range Comments TOTAL COUNTED (BEAKER) (test irnq=7198) WBC MORPHOLOGY (BEAKER) (test mgur=932) Normal LARGE PLT(BEAKER) (test mdjh=8408) Present POLYCHROMATOPHILLIC RBCS(BEAKER) (test svut=170) 2+ moderate SICKLE CELLS (BEAKER) (test xipn=370) 3+ many TARGET CELLS (BEAKER) (test zagz=614) 1+ few CT, [id number] 08:29:00FINAL REPORT HISTORY : Abdominal pain, unspecified [...] MDReport Verified Date/Time: 11/08/2017 08:29:54 Reading Location: [facility] Reading Room - [place] [address] Electronically signed by: DAMI QUICK M.D. on11/08/2017 08:29 AMBASIC METABOLIC [id number] 08:14:00 Test Item Value Reference Range Comments SODIUM (BEAKER) (test 141 meq/L 136-145 pbbc=559) POTASSIUM (BEAKER) (test 4.4 meq/L 3.5-5.1 rkvg=671) CHLORIDE (BEAKER) (test 111 meq/L 98-107 ucjc=830) CO2 (BEAKER) (test 17 meq/L 22-29 rjof=607) BLOOD UREA NITROGEN 37 mg/dL 7-21 (BEAKER) (test prdb=764) CREATININE (BEAKER) (test 2.07 mg/dL 0.57-1.25 tdut=522) GLUCOSE RANDOM (BEAKER) 101 mg/dL 70-105 (test yeyk=324) CALCIUM (BEAKER) (test 8.9 mg/dL 8.4-10.2 bftd=313) EGFR (BEAKER) (test 32 mL/min/1.73 sq m ESTIMATED GFR IS NOT qqqq=4969) ACCURATE CREATININE CLEARANCE IN PREDICTING GLOMERULAR FILTRATION RATE. ESTIMATED GFR IS NOT APPLICABLE FOR DIALYSIS PATIENTS. COMPREHENSIVE METABOLIC [id number] 08:14:00 Test Item Value Reference Range Comments TOTAL PROTEIN (BEAKER) 8.6 gm/dL 6.0-8.3 (test kohw=463) ALBUMIN (BEAKER) (test 3.4 g/dL 3.5-5.0 rgvf=7636) ALKALINE PHOSPHATASE 155 U/L 40-150 (BEAKER) (test zdgy=441) BILIRUBIN TOTAL (BEAKER) 1.7 mg/dL 0.2-1.2 (test ddec=524) SODIUM (BEAKER) (test 141 meq/L 136-145 pfew=131) POTASSIUM (BEAKER) (test 4.4 meq/L 3.5-5.1 rriz=459) CHLORIDE (BEAKER) (test 111 meq/L 98-107 slru=007) CO2 (BEAKER) (test 17 meq/L 22-29 rbcb=645) BLOOD UREA NITROGEN 37 mg/dL 7-21 (BEAKER) (test kbws=881) CREATININE (BEAKER) (test 2.07 mg/dL 0.57-1.25 xghb=124) GLUCOSE RANDOM (BEAKER) 101 mg/dL 70-105 (test vqfr=818) CALCIUM (BEAKER) (test 8.9 mg/dL 8.4-10.2 cqlv=358) AST (SGOT) (BEAKER) (test 144 U/L 5-34 lsgv=923) ALT (SGPT) (BEAKER) (test 70 U/L 6-55 ksij=043) EGFR (BEAKER) (test 32 mL/min/1.73 sq m ESTIMATED GFR IS NOT nkks=0456) ACCURATE CREATININE CLEARANCE IN PREDICTING GLOMERULAR FILTRATION RATE. ESTIMATED GFR IS NOT APPLICABLE FOR DIALYSIS PATIENTS. PROTEIN, RANDOM [id number] 07:49:00 Test Item Value Reference Range Comments PROTEIN, URINE (BEAKER) (test ewyj=3001) 24 mg/dL 0-14 CREATININE, RANDOM [id number] 07:47:00 Test Item Value Reference Range Comments CREATININE URINE (BEAKER) (test pisi=224) 46.0 mg/dL Reference Range: No NormalsSODIUM, RANDOM [id number] 07:47:00 Test Item Value Reference Range Comments SODIUM URINE (BEAKER) (test dmzr=768) 65 meq/L Reference Range: No NormalsU/S, ABDOMINAL, [id number] 19:58:00Reason for exam:->GRAYSON, abdominal painShould this be [...] [place] Verified Date/Time: 11/07/2017 19:58:17 Reading Location: [address] Consult Reading Room LACTIC ACID, VENOUS, WHOLE [id number] 16:11:00 Test Item Value Reference Range Comments LACTATE BLOOD VENOUS (2) 0.9 mmol/L 0.5-2.2 Specimen slightly hemolyzed (BEAKER) (test icpw=0184) Effective 12/22/2015: Units/Reference Range ChangeNew: 0.5-2.2 mmol/L Previous: 5 -20 mg/dLCBC W/PLT COUNT & AUTO [id number] 10:20:00 Test Item Value Reference Range Comments WHITE BLOOD CELL COUNT (BEAKER) (test gcgn=984) 23.2 K/ L 3.5-10.5 RED BLOOD CELL COUNT (BEAKER) (test hsvc=268) 1.84 M/ L 3.93-5.22 HEMOGLOBIN (BEAKER) (test dypn=020) 5.8 GM/DL 11.2-15.7 HEMATOCRIT (BEAKER) (test cysk=230) 17.3 % 34.1-44.9 MEAN CORPUSCULAR VOLUME (BEAKER) (test kplk=828) 94.0 fL 79.4-94.8 MEAN CORPUSCULAR HEMOGLOBIN (BEAKER) (test 31.5 pg 25.6-32.2 sgvv=325) MEAN CORPUSCULAR HEMOGLOBIN CONC (BEAKER) (test 33.5 GM/DL 32.2-35.5 retm=407) RED CELL DISTRIBUTION WIDTH (BEAKER) (test 24.1 % 11.7-14.4 wkdt=958) PLATELET COUNT (BEAKER) (test pkqb=204) 249 K/CU MM 150-450 MEAN PLATELET VOLUME (BEAKER) (test zuqy=080) 10.8 fL 9.4-12.3 NUCLEATED RED BLOOD CELLS (BEAKER) (test 48 /100 WBC 0-0 wzvc=884) IMMATURE GRANULOCYTES-RELATIVE PERCENT (BEAKER) 2 % 0-1 (test svqm=0540) (MANUAL DIFFERENTIAL)2017-11-07 10:20:00 Test Item Value Reference Range Comments NEUTROPHILS - REL (DIFF) (BEAKER) (test 68 % evql=4344) LYMPHOCYTES - REL (DIFF) (BEAKER) (test 27 % kxol=8172) MONOCYTES - REL (DIFF) (BEAKER) (test nxal=2101) 5 % EOSINOPHILS - REL (DIFF) (BEAKER) (test 0 % sryw=9224) BASOPHILS - REL (DIFF) (BEAKER) (test jfax=7585) 0 % NEUTROPHILS - ABS (DIFF) (BEAKER) (test 15.78 K/ L 1.80-8.00 lxbk=7816) LYMPHOCYTES - ABS (DIFF) (BEAKER) (test 6.26 K/ L 1.48-4.50 hhsp=3151) MONOCYTES - ABS (DIFF) (BEAKER) (test sgtr=3972) 1.16 K/ L 0.00-1.30 EOSINOPHILS - ABS (DIFF) (BEAKER) (test 0.00 K/ L 0.00-0.50 jbre=1401) BASOPHILS - ABS (DIFF) (BEAKER) (test tdzt=2995) 0.00 K/ L 0.00-0.20 TOTAL COUNTED (BEAKER) (test ggmg=0536) 100 MANUAL NRBC PER 100 CELLS (BEAKER) (test 51 /100 WBC 0-0 zpul=9531) WBC MORPHOLOGY (BEAKER) (test jaej=532) Normal PLT MORPHOLOGY (BEAKER) (test mdjg=734) Normal ANISOCYTOSIS (BEAKER) (test ezei=436) 3+ many POLYCHROMATOPHILLIC RBCS(BEAKER) (test bmbu=698) 2+ moderate SICKLE CELLS (BEAKER) (test zkqc=301) 3+ many TARGET CELLS (BEAKER) (test mzyc=958) 1+ few BASIC METABOLIC [id number] 06:28:00 Test Item Value Reference Range Comments SODIUM (BEAKER) (test 132 meq/L 136-145 fsga=932) POTASSIUM (BEAKER) (test 4.4 meq/L 3.5-5.1 hfse=776) CHLORIDE (BEAKER) (test 109 meq/L 98-107 ifgj=280) CO2 (BEAKER) (test 20 meq/L 22-29 pkpg=405) BLOOD UREA NITROGEN 39 mg/dL 7-21 (BEAKER) (test gqyr=014) CREATININE (BEAKER) (test 2.20 mg/dL 0.57-1.25 flcj=851) GLUCOSE RANDOM (BEAKER) 123 mg/dL 70-105 (test pnfb=947) CALCIUM (BEAKER) (test 8.7 mg/dL 8.4-10.2 zjfd=228) EGFR (BEAKER) (test 30 mL/min/1.73 sq m ESTIMATED GFR IS NOT ajsi=7312) ACCURATE CREATININE CLEARANCE IN PREDICTING GLOMERULAR FILTRATION RATE. ESTIMATED GFR IS NOT APPLICABLE FOR DIALYSIS PATIENTS. COMPREHENSIVE METABOLIC [id number] 18:37:00 Test Item Value Reference Range Comments TOTAL PROTEIN (BEAKER) 8.5 gm/dL 6.0-8.3 (test qrgi=916) ALBUMIN (BEAKER) (test 3.4 g/dL 3.5-5.0 yqui=1205) ALKALINE PHOSPHATASE 166 U/L 40-150 (BEAKER) (test erhi=947) BILIRUBIN TOTAL (BEAKER) 4.0 mg/dL 0.2-1.2 (test vbgj=811) SODIUM (BEAKER) (test 142 meq/L 136-145 ycur=137) POTASSIUM (BEAKER) (test 4.7 meq/L 3.5-5.1 bkxh=064) CHLORIDE (BEAKER) (test 110 meq/L 98-107 vajc=900) CO2 (BEAKER) (test 22 meq/L 22-29 pftk=066) BLOOD UREA NITROGEN 35 mg/dL 7-21 (BEAKER) (test cflu=058) CREATININE (BEAKER) (test 1.97 mg/dL 0.57-1.25 bbiv=085) GLUCOSE RANDOM (BEAKER) 119 mg/dL 70-105 (test ahqe=940) CALCIUM (BEAKER) (test 8.5 mg/dL 8.4-10.2 gvod=336) AST (SGOT) (BEAKER) (test 278 U/L 5-34 ktnv=688) ALT (SGPT) (BEAKER) (test 92 U/L 6-55 xjux=959) EGFR (BEAKER) (test 34 mL/min/1.73 sq m ESTIMATED GFR IS NOT yptu=6372) ACCURATE CREATININE CLEARANCE IN PREDICTING GLOMERULAR FILTRATION RATE. ESTIMATED GFR IS NOT APPLICABLE FOR DIALYSIS PATIENTS. Specimen slightly ictericCBC W/PLT COUNT & AUTO [id number] 14:59 :00 Test Item Value Reference Range Comments WHITE BLOOD CELL COUNT (BEAKER) (test ibin=065) 24.3 K/ L 3.5-10.5 RED BLOOD CELL COUNT (BEAKER) (test qfop=272) 1.73 M/ L 3.93-5.22 HEMOGLOBIN (BEAKER) (test ddct=111) 5.5 GM/DL 11.2-15.7 HEMATOCRIT (BEAKER) (test cnst=273) 16.7 % 34.1-44.9 MEAN CORPUSCULAR VOLUME (BEAKER) (test fzqw=093) 96.5 fL 79.4-94.8 MEAN CORPUSCULAR HEMOGLOBIN (BEAKER) (test 31.8 pg 25.6-32.2 bbbk=596) MEAN CORPUSCULAR HEMOGLOBIN CONC (BEAKER) (test 32.9 GM/DL 32.2-35.5 gznw=528) RED CELL DISTRIBUTION WIDTH (BEAKER) (test 25.8 % 11.7-14.4 glcq=173) PLATELET COUNT (BEAKER) (test nzmd=654) 259 K/CU MM 150-450 MEAN PLATELET VOLUME (BEAKER) (test cwkj=487) 11.1 fL 9.4-12.3 NUCLEATED RED BLOOD CELLS (BEAKER) (test 29 /100 WBC 0-0 royg=680) IMMATURE GRANULOCYTES-RELATIVE PERCENT (BEAKER) 2 % 0-1 (test xval=8629) (MANUAL DIFFERENTIAL)2017-11-06 14:59:00 Test Item Value Reference Range Comments NEUTROPHILS - REL (DIFF) (BEAKER) (test 65 % xali=5255) LYMPHOCYTES - REL (DIFF) (BEAKER) (test 26 % rfxx=3229) MONOCYTES - REL (DIFF) (BEAKER) (test nfcn=5135) 8 % MYELOCYTES-REL (DIFF) (BEAKER) (test xrxc=4347) 1 % 0-0 NEUTROPHILS - ABS (DIFF) (BEAKER) (test 15.80 K/ L 1.80-8.00 poof=7600) LYMPHOCYTES - ABS (DIFF) (BEAKER) (test 6.32 K/ L 1.48-4.50 ihcv=6343) MONOCYTES - ABS (DIFF) (BEAKER) (test japl=6622) 1.94 K/ L 0.00-1.30 MYELOCYTES-ABS (DIFF) (BEAKER) (test wkbk=1802) 0.24 K/ L 0.00-0.00 TOTAL COUNTED (BEAKER) (test qxmp=2970) 100 MANUAL NRBC PER 100 CELLS (BEAKER) (test 34 /100 WBC 0-0 elky=1372) WBC MORPHOLOGY (BEAKER) (test wrqp=735) Normal PLT MORPHOLOGY (BEAKER) (test ngtd=830) Normal ANISOCYTOSIS (BEAKER) (test dmxs=244) 3+ many MATTHEWS-JOLLY BODIES (BEAKER) (test jjoj=899) Present POIKILOCYTES (BEAKER) (test nozv=110) 1+ few POLYCHROMATOPHILLIC RBCS(BEAKER) (test vcrk=492) 2+ moderate SICKLE CELLS (BEAKER) (test uqbc=212) 3+ many BASIC METABOLIC [id number] 09:37:00 Test Item Value Reference Range Comments SODIUM (BEAKER) (test 139 meq/L 136-145 egbf=354) POTASSIUM (BEAKER) (test 4.5 meq/L 3.5-5.1 lyyi=894) CHLORIDE (BEAKER) (test 107 meq/L 98-107 skmr=033) CO2 (BEAKER) (test 19 meq/L 22-29 ihiy=259) BLOOD UREA NITROGEN 27 mg/dL 7-21 (BEAKER) (test jvrb=978) CREATININE (BEAKER) (test 1.37 mg/dL 0.57-1.25 ymrj=097) GLUCOSE RANDOM (BEAKER) 124 mg/dL 70-105 (test qgui=765) CALCIUM (BEAKER) (test 8.2 mg/dL 8.4-10.2 vmuq=291) EGFR (BEAKER) (test 52 mL/min/1.73 sq m ESTIMATED GFR IS NOT rlxw=5630) ACCURATE CREATININE CLEARANCE IN PREDICTING GLOMERULAR FILTRATION RATE. ESTIMATED GFR IS NOT APPLICABLE FOR DIALYSIS PATIENTS. Specimen slightly ictericURINALYSIS W/ [id number] 06:22:00 Test Item Value Reference Range Comments COLOR (BEAKER) (test frzi=748) Brown CLARITY (BEAKER) (test sdlo=721) Cloudy SPECIFIC GRAVITY UA (BEAKER) (test 1.015 1.001-1.035 mryv=070) PH UA (BEAKER) (test hfua=082) 5.5 5.0-8.0 PROTEIN UA (BEAKER) (test dyjn=698) 100 mg/dL Negative GLUCOSE UA (BEAKER) (test dqxb=980) Negative Negative KETONES UA (BEAKER) (test dweh=500) Negative Negative BILIRUBIN UA (BEAKER) (test ikjh=360) Positive Negative BLOOD UA (BEAKER) (test msri=436) Large Negative NITRITE UA (BEAKER) (test epyd=825) Negative Negative LEUKOCYTE ESTERASE UA (BEAKER) (test Trace Negative vqcj=561) UROBILINOGEN UA (BEAKER) (test aioq=196) 4.0 mg/dL 0.2-1.0 RBC UA (BEAKER) (test impq=826) 0 /HPF WBC UA (BEAKER) (test yrzj=905) 27 /HPF MUCUS (BEAKER) (test sgyt=4559) Few SQUAMOUS EPITHELIAL (BEAKER) (test 11 /HPF mabp=544) SOURCE(BEAKER) (test bldd=4766) Urine, Clean Catch BASIC METABOLIC [id number] 10:56:00 Test Item Value Reference Range Comments SODIUM (BEAKER) (test 139 meq/L 136-145 bcng=536) POTASSIUM (BEAKER) (test 4.2 meq/L 3.5-5.1 zmrh=234) CHLORIDE (BEAKER) (test 104 meq/L 98-107 awhw=077) CO2 (BEAKER) (test 23 meq/L 22-29 vdsk=123) BLOOD UREA NITROGEN 9 mg/dL 7-21 (BEAKER) (test tcpj=935) CREATININE (BEAKER) (test 0.66 mg/dL 0.57-1.25 vcfj=974) GLUCOSE RANDOM (BEAKER) 109 mg/dL 70-105 (test ersi=166) CALCIUM (BEAKER) (test 8.6 mg/dL 8.4-10.2 llpr=851) EGFR (BEAKER) (test 121 mL/min/1.73 sq m ESTIMATED GFR IS NOT kdwp=5650) ACCURATE CREATININE CLEARANCE IN PREDICTING GLOMERULAR FILTRATION RATE. ESTIMATED GFR IS NOT APPLICABLE FOR DIALYSIS PATIENTS. Specimen slightly ictericCBC W/PLT COUNT & AUTO [id number] 09:17 :00 Test Item Value Reference Range Comments WHITE BLOOD CELL COUNT (BEAKER) (test jztj=141) 18.2 K/ L 3.5-10.5 RED BLOOD CELL COUNT (BEAKER) (test qlyg=618) 2.05 M/ L 3.93-5.22 HEMOGLOBIN (BEAKER) (test lxuc=848) 6.4 GM/DL 11.2-15.7 HEMATOCRIT (BEAKER) (test umkw=458) 19.9 % 34.1-44.9 MEAN CORPUSCULAR VOLUME (BEAKER) (test vxkf=693) 97.1 fL 79.4-94.8 MEAN CORPUSCULAR HEMOGLOBIN (BEAKER) (test 31.2 pg 25.6-32.2 wsey=136) MEAN CORPUSCULAR HEMOGLOBIN CONC (BEAKER) (test 32.2 GM/DL 32.2-35.5 lpsq=531) RED CELL DISTRIBUTION WIDTH (BEAKER) (test 25.4 % 11.7-14.4 qpqw=556) PLATELET COUNT (BEAKER) (test qvua=944) 227 K/CU MM 150-450 MEAN PLATELET VOLUME (BEAKER) (test qytw=618) 10.4 fL 9.4-12.3 NUCLEATED RED BLOOD CELLS (BEAKER) (test 18 /100 WBC 0-0 czjj=495) NEUTROPHILS RELATIVE PERCENT (BEAKER) (test 57 % ckha=868) LYMPHOCYTES RELATIVE PERCENT (BEAKER) (test 24 % gmtw=299) MONOCYTES RELATIVE PERCENT (BEAKER) (test 15 % frvi=269) EOSINOPHILS RELATIVE PERCENT (BEAKER) (test 3 % fddp=536) BASOPHILS RELATIVE PERCENT (BEAKER) (test 0 % xwlj=300) NEUTROPHILS ABSOLUTE COUNT (BEAKER) (test 10.46 K/ L 1.56-6.13 hbvc=489) LYMPHOCYTES ABSOLUTE COUNT (BEAKER) (test 4.31 K/ L 1.18-3.74 pfqq=871) MONOCYTES ABSOLUTE COUNT (BEAKER) (test 2.72 K/ L 0.24-0.36 kvlc=066) EOSINOPHILS ABSOLUTE COUNT (BEAKER) (test 0.45 K/ L 0.04-0.36 sdkt=160) BASOPHILS ABSOLUTE COUNT (BEAKER) (test 0.07 K/ L 0.01-0.08 dpzp=785) IMMATURE GRANULOCYTES-RELATIVE PERCENT (BEAKER) 1 % 0-1 (test makq=2601) (MANUAL DIFFERENTIAL)2017-11-05 09:17:00 Test Item Value Reference Range Comments TOTAL COUNTED (BEAKER) (test wiff=3552) WBC MORPHOLOGY (BEAKER) (test uzgz=686) Normal PLT MORPHOLOGY (BEAKER) (test fuxt=664) Normal ANISOCYTOSIS (BEAKER) (test bfwu=229) 2+ moderate POLYCHROMATOPHILLIC RBCS(BEAKER) (test vumb=299) 2+ moderate SICKLE CELLS (BEAKER) (test edri=878) 2+ moderate TARGET CELLS (BEAKER) (test oxkf=857) 2+ moderate CREATINE KINASE (CK), TOTAL AND [id number] 22:01:00 Test Item Value Reference Range Comments CREATINE KINASE TOTAL (BEAKER) (test 10 U/L 29-200 ufmk=539) CREATINE KINASE-MB (BEAKER) (test 0.1 ng/mL 0.0-6.6 uohw=200) CREATINE KINASE-MB INDEX (BEAKER) (test 1.0 % Unable to Calculate anbm=088) CK-MB Reference Range:<6.7 Normal6.7-10.0 Borderline>10.0 AbnormalTROPONIN [id number] 21:16:00 Test Item Value Reference Range Comments TROPONIN I (BEAKER) (test udad=636) < ng/mL 0.00-0.03 Troponin I (TnI) levels [...] and persistent tachyarrhythmia.CBC W/PLT COUNT & AUTO [id number] 06:49:00 Test Item Value Reference Range Comments WHITE BLOOD CELL COUNT (BEAKER) (test epda=223) 13.3 K/ L 3.5-10.5 RED BLOOD CELL COUNT (BEAKER) (test gsak=614) 2.18 M/ L 3.93-5.22 HEMOGLOBIN (BEAKER) (test bylq=921) 6.8 GM/DL 11.2-15.7 HEMATOCRIT (BEAKER) (test qimb=989) 21.5 % 34.1-44.9 MEAN CORPUSCULAR VOLUME (BEAKER) (test mjdz=403) 98.6 fL 79.4-94.8 MEAN CORPUSCULAR HEMOGLOBIN (BEAKER) (test 31.2 pg 25.6-32.2 dnky=072) MEAN CORPUSCULAR HEMOGLOBIN CONC (BEAKER) (test 31.6 GM/DL 32.2-35.5 gqfu=359) RED CELL DISTRIBUTION WIDTH (BEAKER) (test 21.1 % 11.7-14.4 qkpn=297) PLATELET COUNT (BEAKER) (test lbsb=745) 192 K/CU MM 150-450 MEAN PLATELET VOLUME (BEAKER) (test grus=961) 11.4 fL 9.4-12.3 NUCLEATED RED BLOOD CELLS (BEAKER) (test 1 /100 WBC 0-0 vqgw=410) NEUTROPHILS RELATIVE PERCENT (BEAKER) (test 51 % dsfo=096) LYMPHOCYTES RELATIVE PERCENT (BEAKER) (test 30 % vktf=271) MONOCYTES RELATIVE PERCENT (BEAKER) (test 16 % mreu=142) EOSINOPHILS RELATIVE PERCENT (BEAKER) (test 2 % gcuk=697) BASOPHILS RELATIVE PERCENT (BEAKER) (test 0 % slfw=437) NEUTROPHILS ABSOLUTE COUNT (BEAKER) (test 6.84 K/ L 1.56-6.13 kkva=019) LYMPHOCYTES ABSOLUTE COUNT (BEAKER) (test 4.06 K/ L 1.18-3.74 wxvb=342) MONOCYTES ABSOLUTE COUNT (BEAKER) (test 2.12 K/ L 0.24-0.36 ojnu=994) EOSINOPHILS ABSOLUTE COUNT (BEAKER) (test 0.26 K/ L 0.04-0.36 rgsf=951) BASOPHILS ABSOLUTE COUNT (BEAKER) (test 0.02 K/ L 0.01-0.08 ezds=280) IMMATURE GRANULOCYTES-RELATIVE PERCENT (BEAKER) 0 % 0-1 (test nkrx=3242) BASIC METABOLIC [id number] 07:06:00 Test Item Value Reference Range Comments SODIUM (BEAKER) (test 138 meq/L 136-145 tyat=345) POTASSIUM (BEAKER) (test 4.2 meq/L 3.5-5.1 pavv=830) CHLORIDE (BEAKER) (test 103 meq/L 98-107 bkmr=915) CO2 (BEAKER) (test 28 meq/L 22-29 tmsx=621) BLOOD UREA NITROGEN 11 mg/dL 7-21 (BEAKER) (test asfi=761) CREATININE (BEAKER) (test 0.55 mg/dL 0.57-1.25 lela=544) GLUCOSE RANDOM (BEAKER) 95 mg/dL 70-105 (test bclh=246) CALCIUM (BEAKER) (test 9.5 mg/dL 8.4-10.2 xsda=145) EGFR (BEAKER) (test 150 mL/min/1.73 sq m ESTIMATED GFR IS NOT djtk=2299) ACCURATE CREATININE CLEARANCE IN PREDICTING GLOMERULAR FILTRATION RATE. ESTIMATED GFR IS NOT APPLICABLE FOR DIALYSIS PATIENTS. CBC W/PLT COUNT & AUTO [id number] 06:48:00 Test Item Value Reference Range Comments WHITE BLOOD CELL COUNT (BEAKER) (test domu=847) 12.8 K/ L 3.5-10.5 RED BLOOD CELL COUNT (BEAKER) (test wdhf=198) 2.22 M/ L 3.93-5.22 HEMOGLOBIN (BEAKER) (test lquq=946) 7.2 GM/DL 11.2-15.7 HEMATOCRIT (BEAKER) (test lule=202) 21.9 % 34.1-44.9 MEAN CORPUSCULAR VOLUME (BEAKER) (test bfek=088) 98.6 fL 79.4-94.8 MEAN CORPUSCULAR HEMOGLOBIN (BEAKER) (test 32.4 pg 25.6-32.2 abct=692) MEAN CORPUSCULAR HEMOGLOBIN CONC (BEAKER) (test 32.9 GM/DL 32.2-35.5 jugp=978) RED CELL DISTRIBUTION WIDTH (BEAKER) (test 21.2 % 11.7-14.4 mjaa=977) PLATELET COUNT (BEAKER) (test qgcq=223) 176 K/CU MM 150-450 MEAN PLATELET VOLUME (BEAKER) (test hypz=275) 11.2 fL 9.4-12.3 NUCLEATED RED BLOOD CELLS (BEAKER) (test 5 /100 WBC 0-0 ssaj=174) NEUTROPHILS RELATIVE PERCENT (BEAKER) (test 49 % axfi=387) LYMPHOCYTES RELATIVE PERCENT (BEAKER) (test 31 % mmon=997) MONOCYTES RELATIVE PERCENT (BEAKER) (test 19 % fmfj=266) EOSINOPHILS RELATIVE PERCENT (BEAKER) (test 2 % eefj=692) BASOPHILS RELATIVE PERCENT (BEAKER) (test 0 % yvls=240) NEUTROPHILS ABSOLUTE COUNT (BEAKER) (test 6.23 K/ L 1.56-6.13 yxtt=644) LYMPHOCYTES ABSOLUTE COUNT (BEAKER) (test 3.90 K/ L 1.18-3.74 tvka=031) MONOCYTES ABSOLUTE COUNT (BEAKER) (test 2.37 K/ L 0.24-0.36 xwqn=157) EOSINOPHILS ABSOLUTE COUNT (BEAKER) (test 0.24 K/ L 0.04-0.36 nvtv=582) BASOPHILS ABSOLUTE COUNT (BEAKER) (test 0.01 K/ L 0.01-0.08 qwro=072) IMMATURE GRANULOCYTES-RELATIVE PERCENT (BEAKER) 0 % 0-1 (test eahg=4279) (MANUAL DIFFERENTIAL)2017-06-03 06:48:00 Test Item Value Reference Range Comments TOTAL COUNTED (BEAKER) (test ckvp=7506) WBC MORPHOLOGY (BEAKER) (test qhtr=040) Normal PLT MORPHOLOGY (BEAKER) (test axfy=780) Normal ANISOCYTOSIS (BEAKER) (test dkow=843) 3+ many MATTHEWS-JOLLY BODIES (BEAKER) (test qner=439) Present MACROCYTES (BEAKER) (test kseh=907) 3+ many SICKLE CELLS (BEAKER) (test bgpl=544) 1+ few TARGET CELLS (BEAKER) (test jylw=398) 1+ few BASIC METABOLIC [id number] 07:33:00 Test Item Value Reference Range Comments SODIUM (BEAKER) (test 138 meq/L 136-145 raef=677) POTASSIUM (BEAKER) (test 4.5 meq/L 3.5-5.1 jxnp=730) CHLORIDE (BEAKER) (test 102 meq/L 98-107 svpw=828) CO2 (BEAKER) (test 27 meq/L 22-29 bopf=368) BLOOD UREA NITROGEN 11 mg/dL 7-21 (BEAKER) (test xouw=902) CREATININE (BEAKER) (test 0.55 mg/dL 0.57-1.25 tgyo=932) GLUCOSE RANDOM (BEAKER) 85 mg/dL 70-105 (test nwac=855) CALCIUM (BEAKER) (test 9.5 mg/dL 8.4-10.2 iagv=512) EGFR (BEAKER) (test 150 mL/min/1.73 sq m ESTIMATED GFR IS NOT cdok=7969) ACCURATE CREATININE CLEARANCE IN PREDICTING GLOMERULAR FILTRATION RATE. ESTIMATED GFR IS NOT APPLICABLE FOR DIALYSIS PATIENTS. CBC W/PLT COUNT & AUTO [id number] 07:13:00 Test Item Value Reference Range Comments WHITE BLOOD CELL COUNT (BEAKER) (test hxyj=321) 14.2 K/ L 3.5-10.5 RED BLOOD CELL COUNT (BEAKER) (test enzp=082) 2.39 M/ L 3.93-5.22 HEMOGLOBIN (BEAKER) (test bjts=012) 7.6 GM/DL 11.2-15.7 HEMATOCRIT (BEAKER) (test gvvz=272) 23.5 % 34.1-44.9 MEAN CORPUSCULAR VOLUME (BEAKER) (test cmqo=544) 98.3 fL 79.4-94.8 MEAN CORPUSCULAR HEMOGLOBIN (BEAKER) (test 31.8 pg 25.6-32.2 oqjq=171) MEAN CORPUSCULAR HEMOGLOBIN CONC (BEAKER) (test 32.3 GM/DL 32.2-35.5 exjh=168) RED CELL DISTRIBUTION WIDTH (BEAKER) (test 21.1 % 11.7-14.4 whec=313) PLATELET COUNT (BEAKER) (test hvnm=524) 173 K/CU MM 150-450 MEAN PLATELET VOLUME (BEAKER) (test vlzk=698) 11.7 fL 9.4-12.3 NUCLEATED RED BLOOD CELLS (BEAKER) (test 11 /100 WBC 0-0 pjpt=818) NEUTROPHILS RELATIVE PERCENT (BEAKER) (test 53 % ybdm=527) LYMPHOCYTES RELATIVE PERCENT (BEAKER) (test 27 % lhri=608) MONOCYTES RELATIVE PERCENT (BEAKER) (test 18 % vlgp=687) EOSINOPHILS RELATIVE PERCENT (BEAKER) (test 1 % gykz=544) BASOPHILS RELATIVE PERCENT (BEAKER) (test 0 % ewor=142) NEUTROPHILS ABSOLUTE COUNT (BEAKER) (test 7.56 K/ L 1.56-6.13 dkdw=304) LYMPHOCYTES ABSOLUTE COUNT (BEAKER) (test 3.89 K/ L 1.18-3.74 rjpa=968) MONOCYTES ABSOLUTE COUNT (BEAKER) (test 2.52 K/ L 0.24-0.36 cguy=811) EOSINOPHILS ABSOLUTE COUNT (BEAKER) (test 0.20 K/ L 0.04-0.36 nvxe=168) BASOPHILS ABSOLUTE COUNT (BEAKER) (test 0.02 K/ L 0.01-0.08 jaor=571) IMMATURE GRANULOCYTES-RELATIVE PERCENT (BEAKER) 0 % 0-1 (test mjop=3297) CBC W/PLT COUNT & AUTO [id number] 16:45:00 Test Item Value Reference Range Comments WHITE BLOOD CELL COUNT (BEAKER) (test knmr=289) 15.1 K/ L 3.5-10.5 RED BLOOD CELL COUNT (BEAKER) (test mfjj=310) 2.36 M/ L 3.93-5.22 HEMOGLOBIN (BEAKER) (test yxqq=603) 7.5 GM/DL 11.2-15.7 HEMATOCRIT (BEAKER) (test kmpc=390) 23.0 % 34.1-44.9 MEAN CORPUSCULAR VOLUME (BEAKER) (test cfrg=194) 97.5 fL 79.4-94.8 MEAN CORPUSCULAR HEMOGLOBIN (BEAKER) (test 31.8 pg 25.6-32.2 hxhu=247) MEAN CORPUSCULAR HEMOGLOBIN CONC (BEAKER) (test 32.6 GM/DL 32.2-35.5 hxet=200) RED CELL DISTRIBUTION WIDTH (BEAKER) (test 20.7 % 11.7-14.4 rbeu=384) PLATELET COUNT (BEAKER) (test fehb=280) 179 K/CU MM 150-450 MEAN PLATELET VOLUME (BEAKER) (test tanm=847) 11.9 fL 9.4-12.3 NUCLEATED RED BLOOD CELLS (BEAKER) (test 12 /100 WBC 0-0 uchm=506) NEUTROPHILS RELATIVE PERCENT (BEAKER) (test 53 % uodn=104) LYMPHOCYTES RELATIVE PERCENT (BEAKER) (test 27 % fipr=968) MONOCYTES RELATIVE PERCENT (BEAKER) (test 18 % idop=929) EOSINOPHILS RELATIVE PERCENT (BEAKER) (test 2 % ifwu=606) BASOPHILS RELATIVE PERCENT (BEAKER) (test 0 % rkga=197) NEUTROPHILS ABSOLUTE COUNT (BEAKER) (test 8.03 K/ L 1.56-6.13 riip=815) LYMPHOCYTES ABSOLUTE COUNT (BEAKER) (test 3.99 K/ L 1.18-3.74 zprw=263) MONOCYTES ABSOLUTE COUNT (BEAKER) (test 2.65 K/ L 0.24-0.36 jnds=502) EOSINOPHILS ABSOLUTE COUNT (BEAKER) (test 0.31 K/ L 0.04-0.36 nbzw=600) BASOPHILS ABSOLUTE COUNT (BEAKER) (test 0.02 K/ L 0.01-0.08 ovzj=249) IMMATURE GRANULOCYTES-RELATIVE PERCENT (BEAKER) 0 % 0-1 (test mwrc=0407) BASIC METABOLIC [id number] 06:17:00 Test Item Value Reference Range Comments SODIUM (BEAKER) (test 138 meq/L 136-145 vzqw=670) POTASSIUM (BEAKER) (test 4.1 meq/L 3.5-5.1 ohqz=177) CHLORIDE (BEAKER) (test 100 meq/L 98-107 pbpn=128) CO2 (BEAKER) (test 30 meq/L 22-29 bsfi=385) BLOOD UREA NITROGEN 11 mg/dL 7-21 (BEAKER) (test ripf=834) CREATININE (BEAKER) (test 0.58 mg/dL 0.57-1.25 drpo=408) GLUCOSE RANDOM (BEAKER) 90 mg/dL 70-105 (test dmgj=741) CALCIUM (BEAKER) (test 9.4 mg/dL 8.4-10.2 aops=877) EGFR (BEAKER) (test 141 mL/min/1.73 sq m ESTIMATED GFR IS NOT evjt=9418) ACCURATE CREATININE CLEARANCE IN PREDICTING GLOMERULAR FILTRATION RATE. ESTIMATED GFR IS NOT APPLICABLE FOR DIALYSIS PATIENTS. CBC W/PLT COUNT & AUTO [id number] 13:41:00 Test Item Value Reference Range Comments WHITE BLOOD CELL COUNT (BEAKER) (test wsdu=051) 13.9 K/ L 3.5-10.5 RED BLOOD CELL COUNT (BEAKER) (test tgmr=835) 2.38 M/ L 3.93-5.22 HEMOGLOBIN (BEAKER) (test txvp=315) 7.5 GM/DL 11.2-15.7 HEMATOCRIT (BEAKER) (test ecya=333) 23.2 % 34.1-44.9 MEAN CORPUSCULAR VOLUME (BEAKER) (test xbtw=050) 97.5 fL 79.4-94.8 MEAN CORPUSCULAR HEMOGLOBIN (BEAKER) (test 31.5 pg 25.6-32.2 oekh=533) MEAN CORPUSCULAR HEMOGLOBIN CONC (BEAKER) (test 32.3 GM/DL 32.2-35.5 xhvv=223) RED CELL DISTRIBUTION WIDTH (BEAKER) (test 20.2 % 11.7-14.4 zujg=406) PLATELET COUNT (BEAKER) (test brla=049) 171 K/CU MM 150-450 MEAN PLATELET VOLUME (BEAKER) (test gfea=654) 12.0 fL 9.4-12.3 NUCLEATED RED BLOOD CELLS (BEAKER) (test 8 /100 WBC 0-0 qwzz=019) NEUTROPHILS RELATIVE PERCENT (BEAKER) (test 57 % jbwe=688) LYMPHOCYTES RELATIVE PERCENT (BEAKER) (test 23 % epqq=774) MONOCYTES RELATIVE PERCENT (BEAKER) (test 18 % gdvt=920) EOSINOPHILS RELATIVE PERCENT (BEAKER) (test 2 % hsft=869) BASOPHILS RELATIVE PERCENT (BEAKER) (test 0 % nkpo=656) NEUTROPHILS ABSOLUTE COUNT (BEAKER) (test 7.89 K/ L 1.56-6.13 seac=256) LYMPHOCYTES ABSOLUTE COUNT (BEAKER) (test 3.13 K/ L 1.18-3.74 ilvx=998) MONOCYTES ABSOLUTE COUNT (BEAKER) (test 2.52 K/ L 0.24-0.36 jrwq=941) EOSINOPHILS ABSOLUTE COUNT (BEAKER) (test 0.25 K/ L 0.04-0.36 zcsy=883) BASOPHILS ABSOLUTE COUNT (BEAKER) (test 0.02 K/ L 0.01-0.08 vcuf=037) IMMATURE GRANULOCYTES-RELATIVE PERCENT (BEAKER) 1 % 0-1 (test nzbt=9681) (MANUAL DIFFERENTIAL)2017-05-31 13:41:00 Test Item Value Reference Range Comments TOTAL COUNTED (BEAKER) (test ehqk=7367) WBC MORPHOLOGY (BEAKER) (test unqc=128) Normal PLT MORPHOLOGY (BEAKER) (test ewvv=603) Normal POLYCHROMATOPHILLIC RBCS(BEAKER) (test oepf=139) 2+ moderate SICKLE CELLS (BEAKER) (test oixj=476) 1+ few TARGET CELLS (BEAKER) (test iuht=810) 2+ moderate URINE [id number] 12:19:00 Test Item Value Reference Range Comments CULTURE (BEAKER) (test 20-29,000 col/mL skin valentino sfjv=6331) BASIC METABOLIC [id number] 07:23:00 Test Item Value Reference Range Comments SODIUM (BEAKER) (test 136 meq/L 136-145 ziyp=518) POTASSIUM (BEAKER) (test 3.9 meq/L 3.5-5.1 gryk=017) CHLORIDE (BEAKER) (test 97 meq/L 98-107 zeod=865) CO2 (BEAKER) (test 30 meq/L 22-29 ybtz=982) BLOOD UREA NITROGEN 9 mg/dL 7-21 (BEAKER) (test ymjy=987) CREATININE (BEAKER) (test 0.56 mg/dL 0.57-1.25 uwqc=682) GLUCOSE RANDOM (BEAKER) 100 mg/dL 70-105 (test dcrv=076) CALCIUM (BEAKER) (test 9.5 mg/dL 8.4-10.2 pgut=096) EGFR (BEAKER) (test 147 mL/min/1.73 sq m ESTIMATED GFR IS NOT uagu=6083) ACCURATE CREATININE CLEARANCE IN PREDICTING GLOMERULAR FILTRATION RATE. ESTIMATED GFR IS NOT APPLICABLE FOR DIALYSIS PATIENTS. U/S, ABDOMINAL, [id number] 23:52:00Reason for exam:->painShould this be performed at [...] MDReport Verified Date/Time: 05/30/2017 23:52:25 Reading Location: [address] Consult Reading Room 11:52 PMCBC W/PLT COUNT & AUTO [id number] 17:30:00 Test Item Value Reference Range Comments WHITE BLOOD CELL COUNT (BEAKER) (test skxb=079) 14.0 K/ L 3.5-10.5 RED BLOOD CELL COUNT (BEAKER) (test skqa=938) 2.41 M/ L 3.93-5.22 HEMOGLOBIN (BEAKER) (test vcbd=209) 7.7 GM/DL 11.2-15.7 HEMATOCRIT (BEAKER) (test agtn=822) 23.3 % 34.1-44.9 MEAN CORPUSCULAR VOLUME (BEAKER) (test mvkj=012) 96.7 fL 79.4-94.8 MEAN CORPUSCULAR HEMOGLOBIN (BEAKER) (test 32.0 pg 25.6-32.2 ijlt=893) MEAN CORPUSCULAR HEMOGLOBIN CONC (BEAKER) (test 33.0 GM/DL 32.2-35.5 ahvj=797) RED CELL DISTRIBUTION WIDTH (BEAKER) (test 20.0 % 11.7-14.4 ommi=655) PLATELET COUNT (BEAKER) (test mwzj=870) 163 K/CU MM 150-450 MEAN PLATELET VOLUME (BEAKER) (test ynwx=348) 11.7 fL 9.4-12.3 NUCLEATED RED BLOOD CELLS (BEAKER) (test 4 /100 WBC 0-0 jufb=672) NEUTROPHILS RELATIVE PERCENT (BEAKER) (test 47 % hlxv=684) LYMPHOCYTES RELATIVE PERCENT (BEAKER) (test 32 % onmx=431) MONOCYTES RELATIVE PERCENT (BEAKER) (test 18 % aqin=500) EOSINOPHILS RELATIVE PERCENT (BEAKER) (test 3 % drhg=900) BASOPHILS RELATIVE PERCENT (BEAKER) (test 0 % cgiz=437) NEUTROPHILS ABSOLUTE COUNT (BEAKER) (test 6.58 K/ L 1.56-6.13 hbjp=403) LYMPHOCYTES ABSOLUTE COUNT (BEAKER) (test 4.40 K/ L 1.18-3.74 enmz=281) MONOCYTES ABSOLUTE COUNT (BEAKER) (test 2.49 K/ L 0.24-0.36 mvwe=491) EOSINOPHILS ABSOLUTE COUNT (BEAKER) (test 0.44 K/ L 0.04-0.36 ugtk=820) BASOPHILS ABSOLUTE COUNT (BEAKER) (test 0.02 K/ L 0.01-0.08 dsqq=329) IMMATURE GRANULOCYTES-RELATIVE PERCENT (BEAKER) 0 % 0-1 (test faxi=3388) BASIC METABOLIC [id number] 06:33:00 Test Item Value Reference Range Comments SODIUM (BEAKER) (test 139 meq/L 136-145 wkvt=987) POTASSIUM (BEAKER) (test 4.0 meq/L 3.5-5.1 tthq=396) CHLORIDE (BEAKER) (test 102 meq/L 98-107 odia=519) CO2 (BEAKER) (test 28 meq/L 22-29 zqgi=154) BLOOD UREA NITROGEN 7 mg/dL 7-21 (BEAKER) (test jwht=828) CREATININE (BEAKER) (test 0.54 mg/dL 0.57-1.25 ccbw=239) GLUCOSE RANDOM (BEAKER) 95 mg/dL 70-105 (test rfsm=845) CALCIUM (BEAKER) (test 9.6 mg/dL 8.4-10.2 vxxu=722) EGFR (BEAKER) (test 153 mL/min/1.73 sq m ESTIMATED GFR IS NOT mopb=5857) ACCURATE CREATININE CLEARANCE IN PREDICTING GLOMERULAR FILTRATION RATE. ESTIMATED GFR IS NOT APPLICABLE FOR DIALYSIS PATIENTS. CBC W/PLT COUNT & AUTO [id number] 13:41:00 Test Item Value Reference Range Comments WHITE BLOOD CELL COUNT (BEAKER) (test pkli=390) 14.6 K/ L 3.5-10.5 RED BLOOD CELL COUNT (BEAKER) (test ewge=060) 1.85 M/ L 3.93-5.22 HEMOGLOBIN (BEAKER) (test gvrm=987) 5.9 GM/DL 11.2-15.7 HEMATOCRIT (BEAKER) (test cbty=059) 18.5 % 34.1-44.9 MEAN CORPUSCULAR VOLUME (BEAKER) (test oxnb=417) 100.0 fL 79.4-94.8 MEAN CORPUSCULAR HEMOGLOBIN (BEAKER) (test 31.9 pg 25.6-32.2 ltbn=499) MEAN CORPUSCULAR HEMOGLOBIN CONC (BEAKER) (test 31.9 GM/DL 32.2-35.5 auuo=172) RED CELL DISTRIBUTION WIDTH (BEAKER) (test 21.0 % 11.7-14.4 urtz=927) PLATELET COUNT (BEAKER) (test hsxe=285) 169 K/CU MM 150-450 MEAN PLATELET VOLUME (BEAKER) (test mqjx=785) 12.1 fL 9.4-12.3 NUCLEATED RED BLOOD CELLS (BEAKER) (test 3 /100 WBC 0-0 ltqm=110) NEUTROPHILS RELATIVE PERCENT (BEAKER) (test 52 % wucn=113) LYMPHOCYTES RELATIVE PERCENT (BEAKER) (test 28 % oask=085) MONOCYTES RELATIVE PERCENT (BEAKER) (test 16 % ldva=404) EOSINOPHILS RELATIVE PERCENT (BEAKER) (test 4 % cgpi=008) BASOPHILS RELATIVE PERCENT (BEAKER) (test 0 % xhay=743) NEUTROPHILS ABSOLUTE COUNT (BEAKER) (test 7.50 K/ L 1.56-6.13 vfdp=497) LYMPHOCYTES ABSOLUTE COUNT (BEAKER) (test 4.08 K/ L 1.18-3.74 euhm=118) MONOCYTES ABSOLUTE COUNT (BEAKER) (test 2.34 K/ L 0.24-0.36 pctp=799) EOSINOPHILS ABSOLUTE COUNT (BEAKER) (test 0.56 K/ L 0.04-0.36 akrh=306) BASOPHILS ABSOLUTE COUNT (BEAKER) (test 0.02 K/ L 0.01-0.08 denu=251) IMMATURE GRANULOCYTES-RELATIVE PERCENT (BEAKER) 0 % 0-1 (test wpdq=6839) (MANUAL DIFFERENTIAL)2017-05-29 13:41:00 Test Item Value Reference Range Comments TOTAL COUNTED (BEAKER) (test lsas=0033) WBC MORPHOLOGY (BEAKER) (test wkyz=149) Normal PLT MORPHOLOGY (BEAKER) (test qufh=282) Normal POLYCHROMATOPHILLIC RBCS(BEAKER) (test ttbw=934) 2+ moderate SICKLE CELLS (BEAKER) (test ymsl=217) 1+ few TARGET CELLS (BEAKER) (test igry=768) 2+ moderate BASIC METABOLIC [id number] 07:38:00 Test Item Value Reference Range Comments SODIUM (BEAKER) (test 140 meq/L 136-145 edsw=049) POTASSIUM (BEAKER) (test 3.9 meq/L 3.5-5.1 icxn=943) CHLORIDE (BEAKER) (test 104 meq/L 98-107 zbhd=458) CO2 (BEAKER) (test 28 meq/L 22-29 vkxe=087) BLOOD UREA NITROGEN 8 mg/dL 7-21 (BEAKER) (test zffk=599) CREATININE (BEAKER) (test 0.56 mg/dL 0.57-1.25 goqs=116) GLUCOSE RANDOM (BEAKER) 129 mg/dL 70-105 (test khxf=409) CALCIUM (BEAKER) (test 9.2 mg/dL 8.4-10.2 whcq=819) EGFR (BEAKER) (test 147 mL/min/1.73 sq m ESTIMATED GFR IS NOT tiec=6199) ACCURATE CREATININE CLEARANCE IN PREDICTING GLOMERULAR FILTRATION RATE. ESTIMATED GFR IS NOT APPLICABLE FOR DIALYSIS PATIENTS. CBC W/PLT COUNT & AUTO [id number] 15:40:00 Test Item Value Reference Range Comments WHITE BLOOD CELL COUNT (BEAKER) (test cfhk=004) 15.5 K/ L 3.5-10.5 RED BLOOD CELL COUNT (BEAKER) (test absq=417) 2.13 M/ L 3.93-5.22 HEMOGLOBIN (BEAKER) (test xoov=378) 6.8 GM/DL 11.2-15.7 HEMATOCRIT (BEAKER) (test khux=362) 21.1 % 34.1-44.9 MEAN CORPUSCULAR VOLUME (BEAKER) (test hcus=439) 99.1 fL 79.4-94.8 MEAN CORPUSCULAR HEMOGLOBIN (BEAKER) (test 31.9 pg 25.6-32.2 ftwr=322) MEAN CORPUSCULAR HEMOGLOBIN CONC (BEAKER) (test 32.2 GM/DL 32.2-35.5 qdjz=008) RED CELL DISTRIBUTION WIDTH (BEAKER) (test 20.8 % 11.7-14.4 yeuv=827) PLATELET COUNT (BEAKER) (test fjeo=498) 178 K/CU MM 150-450 MEAN PLATELET VOLUME (BEAKER) (test nbrd=260) 11.9 fL 9.4-12.3 NUCLEATED RED BLOOD CELLS (BEAKER) (test 2 /100 WBC 0-0 alzn=415) NEUTROPHILS RELATIVE PERCENT (BEAKER) (test 47 % gwzt=949) LYMPHOCYTES RELATIVE PERCENT (BEAKER) (test 34 % nibu=513) MONOCYTES RELATIVE PERCENT (BEAKER) (test 16 % lbjt=868) EOSINOPHILS RELATIVE PERCENT (BEAKER) (test 3 % mvla=634) BASOPHILS RELATIVE PERCENT (BEAKER) (test 0 % poyv=855) NEUTROPHILS ABSOLUTE COUNT (BEAKER) (test 7.20 K/ L 1.56-6.13 rfrc=635) LYMPHOCYTES ABSOLUTE COUNT (BEAKER) (test 5.22 K/ L 1.18-3.74 qqop=461) MONOCYTES ABSOLUTE COUNT (BEAKER) (test 2.50 K/ L 0.24-0.36 oxyv=197) EOSINOPHILS ABSOLUTE COUNT (BEAKER) (test 0.48 K/ L 0.04-0.36 vcgq=395) BASOPHILS ABSOLUTE COUNT (BEAKER) (test 0.02 K/ L 0.01-0.08 vudr=020) IMMATURE GRANULOCYTES-RELATIVE PERCENT (BEAKER) 1 % 0-1 (test osuh=5458) (MANUAL DIFFERENTIAL)2017-05-28 15:40:00 Test Item Value Reference Range Comments TOTAL COUNTED (BEAKER) (test eamf=8220) WBC MORPHOLOGY (BEAKER) (test ommv=818) Normal PLT MORPHOLOGY (BEAKER) (test uhoe=420) Normal ANISOCYTOSIS (BEAKER) (test xxwo=605) 2+ moderate POLYCHROMATOPHILLIC RBCS(BEAKER) (test hmbu=145) 2+ moderate SICKLE CELLS (BEAKER) (test uygz=749) 1+ few TARGET CELLS (BEAKER) (test ybyp=177) 2+ moderate URINALYSIS W/ [id number] 15:13:00 Test Item Value Reference Range Comments COLOR (BEAKER) (test vbts=816) Yellow CLARITY (BEAKER) (test qvsc=172) Clear SPECIFIC GRAVITY UA (BEAKER) (test rvfb=991) 1.008 1.001-1.035 PH UA (BEAKER) (test lwgj=240) 6.0 5.0-8.0 PROTEIN UA (BEAKER) (test qane=744) Negative Negative GLUCOSE UA (BEAKER) (test lvug=476) Negative Negative KETONES UA (BEAKER) (test rtob=371) Negative Negative BILIRUBIN UA (BEAKER) (test pihn=320) Negative Negative BLOOD UA (BEAKER) (test ugbu=946) Negative Negative NITRITE UA (BEAKER) (test ijax=019) Negative Negative LEUKOCYTE ESTERASE UA (BEAKER) (test vevo=036) Negative Negative UROBILINOGEN UA (BEAKER) (test bmfe=612) 0.2 mg/dL 0.2-1.0 RBC UA (BEAKER) (test kbfb=532) < /HPF WBC UA (BEAKER) (test jybf=800) 2 /HPF MUCUS (BEAKER) (test twxv=9140) Rare SQUAMOUS EPITHELIAL (BEAKER) (test bfgq=704) 5 /HPF SOURCE(BEAKER) (test iqmx=6057) Urine, Voided BASIC METABOLIC [id number] 06:26:00 Test Item Value Reference Range Comments SODIUM (BEAKER) (test 139 meq/L 136-145 huca=998) POTASSIUM (BEAKER) (test 3.8 meq/L 3.5-5.1 furd=315) CHLORIDE (BEAKER) (test 104 meq/L 98-107 qghd=120) CO2 (BEAKER) (test 30 meq/L 22-29 sncq=389) BLOOD UREA NITROGEN 6 mg/dL 7-21 (BEAKER) (test ushp=141) CREATININE (BEAKER) (test 0.56 mg/dL 0.57-1.25 omva=250) GLUCOSE RANDOM (BEAKER) 102 mg/dL 70-105 (test kipa=473) CALCIUM (BEAKER) (test 9.0 mg/dL 8.4-10.2 imat=016) EGFR (BEAKER) (test 147 mL/min/1.73 sq m ESTIMATED GFR IS NOT jtwb=2353) ACCURATE CREATININE CLEARANCE IN PREDICTING GLOMERULAR FILTRATION RATE. ESTIMATED GFR IS NOT APPLICABLE FOR DIALYSIS PATIENTS.
[2018-08-15] MEDS ORDERED: NA CHLORIDE 0.9% 1,000 ML ONE (12:08)
[2018-08-15] MEDS ORDERED: HYDROMORPHONE HCL 1 MG/ML INJ ONE ×2 (12:08→13:22)
[2018-08-15] MEDS ORDERED: PROMETHAZINE 25 MG/ML VIAL ONE (12:08)
[2018-08-15] MEDS ORDERED: DIPHENHYDRAMINE 50 MG/ML VIAL ONE ×2 (12:22→14:41)
[2018-08-15 12:24] LABS: MPV 8.6 fL (7.6-11.3); RBC Red Blood Cell Count 1.98 M/uL (3.86-4.86)
[2018-08-15 12:36] LABS: ALT/SGPT 97 U/L (12-78); AST/SGOT 175 U/L (15-37); Albumin 3.2 g/dL (3.4-5.0); Alkaline Phosphatase 209 U/L (45-117); BUN Blood Urea Nitrogen 8 mg/dL (7-18); Bicarbonate 28 mmol/L (21-32); Bilirubin Total 2.9 mg/dL (0.2-1.0); Glucose Level 97 mg/dL (74-106); Lipase 130 U/L (73-393); Potassium 4.4 mmol/L (3.5-5.1); Protein, Total 9.2 g/dL (6.4-8.2); Sodium Level 137 mmol/L (136-145)
[2018-08-15 13:05] LABS: Basophils % 1.9 % (0-1.3); Eosinophils % 1.7 % (0-4.4); Lymphocytes % 31.1 % (15.3-44.8)
[2018-08-15 13:06] LABS: Absolute Monocytes 1.4 K/uL (0.1-1.3)
[2018-08-15 13:10] LABS: Anisocytosis 3+; Blood Morphology Comment NOTED (NOT SEEN); Macrocytosis 2+; Platelet Estimate ADEQ; Polychromasia 2+; Target Cells 1+
--- NOTE | 2018-08-15 13:22 | RAD REPORT ---
EXAM DESCRIPTION: Bhavint Pa And Lat (2 Views)08/15/2018 1:11 pm CLINICAL HISTORY: Cough COMPARISON: May 2018 FINDINGS: Mild interstitial lung opacities bilaterally. Heart is mildly enlarged. Central venous cat heter remains in place. IMPRESSION: Mild bilateral interstitial lung opacities probably represent a combination of minimal i nterstitial pulmonary edema superimposed over chronic changes
--- NOTE | 2018-08-15 13:28 | EDPHYS ---
Physician Documentation [facility] Name: Brennon Berg Age: 38 yrs Sex: Female : 1980 Arrival Date: 08/15/2018 Time: 10:35 Bed 19 Private MD: Adama Rod E ED Physician Sai Cano HPI: 08/15 12:00 This 38 yrs old Black Female presents to ER via Ambulatory with complaints of Sickle ma2 Cell Crisis, Arm Pain. 12:00 The complaints affect the right bicep. Context: scd. Onset: The symptoms/episode ma2 began/occurred gradually, 2 day(s) ago. Treatment prior to arrival includes: no previous treatment. Associated signs and symptoms: Pertinent positives: pain, Pertinent negatives: decreased range of motion, deformity, erythema, fever, nausea, numbness, swelling, tingling, warmth. Severity of symptoms: At their worst the symptoms were moderate, in the emergency department the symptoms are unchanged. The patient has experienced similar episodes in the past. 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 LMP N/A - Post-menopause em Historical: - Allergies: 10:58 Fentanyl; ph 10:58 Morphine; ph 10:58 Reglan; ph 10:58 Stadol; ph 10:58 Toradol; ph 10:58 tramadol; ph 10:58 Trazodone; ph 10:58 Ultram; ph 10:58 Zofran; ph - Home Meds: 13:35 Hydrea 500 mg Oral cap TID [Active]; Xanax 2 mg Oral tab 2 times a day [Active]; em promethazine 25 mg oral tab [Active]; hydrocodone-acetaminophen 10-325 mg oral tab [Active]; Keppra 250 mg Oral tab 1 tabs 2 times per day [Active]; hydroxyurea 500 mg Oral cap 1 cap every 3 days [Active]; - PMHx: 10:58 aplastic anemia; CVA; L sided weakness; Myocardial infarction; Seizures; Sickle Cell; ph - PSHx: 10:58 Hysterectomy; splenectomy; Cholecystectomy; ; ph - Immunization history:: Adult Immunizations up to date. - Social history:: Patient/guardian denies using alcohol, street drugs, The patient lives with family, Smoking status: Patient/guardian denies using tobacco. - Family history:: not pertinent. - Ebola Screening: : Patient negative for fever greater than or equal to 101.5 degrees Fahrenheit, and additional compatible Ebola Virus Disease symptoms Patient denies exposure to infectious person Patient denies travel to an Ebola-affected area in the 21 days before illness onset No symptoms or risks identified at this time. - Hospitalizations: : No recent hospitalization is reported. ROS: 12:00 Constitutional: Negative for fever, chills, and weight loss, Neck: Negative for injury, ma2 pain, and swelling, Cardiovascular: Negative for chest pain, palpitations, and edema, Respiratory: Negative for shortness of breath, cough, wheezing, and pleuritic chest pain, Abdomen/GI: Negative for abdominal pain, nausea, diarrhea, and constipation. 12:00 ENT: Negative for injury, pain, and discharge, Psych: Negative for depression, anxiety, suicide ideation, homicidal ideation, and hallucinations, Allergy/Immunology: Negative for hives, rash, and allergies. 12:00 Constitutional: Positive for weight loss, generalized pain, Negative for chills, fever. 12:00 ENT: Positive for Exam: 12:00 Constitutional: This is a well developed, well nourished patient who is awake, alert, ma2 and in no acute distress. Chest/axilla: Normal chest wall appearance and motion. Nontender with no deformity. No lesions are appreciated. Cardiovascular: Regular rate and rhythm with a normal S1 and S2. No gallops, murmurs, or rubs. Normal PMI, no JVD. No pulse deficits. Respiratory: Lungs have equal breath sounds bilaterally, clear to auscultation and percussion. No rales, rhonchi or wheezes noted. No increased work of breathing, no retractions or nasal flaring. Abdomen/GI: Soft, non-tender, with normal bowel sounds. No distension or tympany. No guarding or rebound. No evidence of tenderness throughout. MS/ Extremity: Pulses equal, no cyanosis. Neurovascular intact. Full, normal range of motion. Psych: Awake, alert, with orientation to person, place and time. Behavior, mood, and affect are within normal limits. 12:00 Neuro: Motor: residual left hemiplesia. Vital Signs: 10:55 BP 142 / 100; Pulse 96; Resp 18; Temp 98.2; Pulse Ox 100% on R/A; Weight 69.4 kg; ph Height 5 ft. 3 in. (160.02 cm); Pain 10/10; 12:15 BP 146 / 110; Pulse 86; Resp 18; Pulse Ox 100% on 2 lpm NC; Pain 10/10; em 13:32 BP 142 / 107; Pulse 87; Resp 18; Pulse Ox 100% on 2 lpm NC; Pain 10/10; em 14:30 BP 146 / 103; Pulse 89; Resp 18; Pulse Ox 99% on R/A; Pain 10/10; em 16:35 BP 150 / 100; Pulse 79; Resp 20; Temp 98.4(O); Pulse Ox 100% on 2 lpm NC; Pain 10/10; em 16:36 BP 157 / 97; Pulse 83; Resp 18; Pulse Ox 99% on 2 lpm NC; em 10:55 Body Mass Index 27.10 (69.40 kg, 160.02 cm) ph MDM: 11:44 Patient medically screened. ma2 12:00 Differential diagnosis: sc crises unlikely hip avascular necrosis aplastic crises ma2 pneumonia or acute chest. 13:20 Data reviewed: vital signs, nurses notes, EMS record, alf records. Counseling: ma2 I had a detailed discussion with the patient and/or guardian regarding: the historical points, exam findings, and any diagnostic results supporting the discharge/admit diagnosis, the presence of at least one elevated blood pressure reading (>120/80) during this emergency department visit, the need for outpatient follow up. Response to treatment: There is no appreciated change of the patient's symptoms at this time. 13:26 ED course: still have intractable pain.. will admit to obs discussed with dr. jovel . mo2 08/15 11:55 Order name: Basic Metabolic Panel; Complete Time: 12:41 em 08/15 11:55 Order name: CBC with Diff; Complete Time: 13:18 em 08/15 11:55 Order name: Creatinine for Radiology; Complete Time: 12:41 em 08/15 11:55 Order name: Hepatic Function; Complete Time: 12:41 em 08/15 11:55 Order name: Lipase; Complete Time: 12:41 em 08/15 12:03 Order name: Retic Count; Complete Time: 12:41 [facility] 08/15 12:00 Order name: Chest Pa And Lat (2 Views) XRAY; Complete Time: 14:24 ma2 08/15 13:08 Order name: Manual Differential; Complete Time: 13:18 EDMS 08/15 11:55 Order name: IV Saline Lock; Complete Time: 12: em 08/15 11:55 Order name: Labs collected and sent; Complete Time: 12: em 08/15 11:57 Order name: O2 Per Protocol; Complete Time: 12:26 em Administered Medications: 12:30 Drug: Dilaudid 1 mg Route: IVP; Site: PICC; hb 13:21 Follow up: Response: No adverse reaction; Pain is unchanged, physician notified em 12:30 Drug: Phenergan 25 mg Route: IVP; Site: Port-a-cath; hb 13:21 Follow up: Response: No adverse reaction em 12:30 Drug: NS 0.9% 1000 ml Route: IV; Rate: 1 bolus; Site: Port-a-cath; hb 14:30 Follow up: IV Status: Completed infusion; IV Intake: 1000ml em 12:30 Drug: Benadryl 50 mg Route: IVP; Site: Port-a-cath; hb 13:21 Follow up: Response: No adverse reaction em 13:30 Drug: Dilaudid 1 mg Route: IVP; Site: Port-a-cath; hb 14:00 Follow up: Response: No adverse reaction; Pain is unchanged, physician notified em 14:37 Drug: Benadryl 50 mg Route: IVP; Site: Port-a-cath; hb 15:00 Follow up: Response: No adverse reaction; Marked relief of symptoms em Disposition: 08/15/18 13:28 Hospitalization ordered by Manny Jovel for Observation. Preliminary diagnosis is Other sickle-cell disorders with crisis. - Bed requested for Telemetry/MedSurg (observation). - Status is Observation. em - Condition is Stable. - Problem is new. - Symptoms have improved. UTI on Admission? No Signatures: Dispatcher [employer] EDHI Salvador Escalona, INSTRUMENT LENS GRINDER INSTRUMENT LENS GRINDER em Selina Huber, RN RN Jessica Quiñones RN RN Mary Azul RN RN df Alzahri, Mohammad, MD MD ma2 Corrections: (The following items were deleted from the chart) 16:06 13:28 Hospitalization Ordered by Manny Jovel MD for Observation. Preliminary diagnosis df is Other sickle-cell disorders with crisis. Bed requested for Telemetry/MedSurg (observation). Status is Observation. Condition is Stable. Problem is new. Symptoms have improved. UTI on Admission? No. ma2 16:56 16:06 08/15/2018 13:28 Hospitalization Ordered by Manny Jovel MD for Observation. em Preliminary diagnosis is Other sickle-cell disorders with crisis. Bed requested for Telemetry/MedSurg (observation). Status is Observation. Condition is Stable. Problem is new. Symptoms have improved. UTI on Admission? No. df
--- NOTE | 2018-08-15 13:28 | ER ---
Nurse's Notes [facility] Name: Brennon Berg Age: 38 yrs Sex: Female : 1980 Arrival Date: 08/15/2018 Time: 10:35 Bed 19 Private MD: Adama Rod E Diagnosis: Other sickle-cell disorders with crisis Presentation: 08/15 10:53 Presenting complaint: Patient states: Sickle cell flare up that started today, reports ph pain all over and nausea, denies vomiting,pt awake and alert in triage. Transition of care: patient was not received from another setting of care. Onset of symptoms was August 15, 2018. Risk Assessment: Do you want to hurt yourself or someone else? Patient reports no desire to harm self or others. Initial Sepsis Screen: Does the patient meet any 2 criteria? No. Patient's initial sepsis screen is negative. Care prior to arrival: None. 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: 13:35 LMP N/A - Post-menopause em Historical: - Allergies: 10:58 Fentanyl; ph 10:58 Morphine; ph 10:58 Reglan; ph 10:58 Stadol; ph 10:58 Toradol; ph 10:58 tramadol; ph 10:58 Trazodone; ph 10:58 Ultram; ph 10:58 Zofran; ph - Home Meds: 13:35 Hydrea 500 mg Oral cap TID [Active]; Xanax 2 mg Oral tab 2 times a day [Active]; em promethazine 25 mg oral tab [Active]; hydrocodone-acetaminophen 10-325 mg oral tab [Active]; Keppra 250 mg Oral tab 1 tabs 2 times per day [Active]; hydroxyurea 500 mg Oral cap 1 cap every 3 days [Active]; - PMHx: 10:58 aplastic anemia; CVA; L sided weakness; Myocardial infarction; Seizures; Sickle Cell; ph - PSHx: 10:58 Hysterectomy; splenectomy; Cholecystectomy; ; ph - Immunization history:: Adult Immunizations up to date. - Social history:: Patient/guardian denies using alcohol, street drugs, The patient lives with family, Smoking status: Patient/guardian denies using tobacco. - Family history:: not pertinent. - Ebola Screening: : Patient negative for fever greater than or equal to 101.5 degrees Fahrenheit, and additional compatible Ebola Virus Disease symptoms Patient denies exposure to infectious person Patient denies travel to an Ebola-affected area in the 21 days before illness onset No symptoms or risks identified at this time. - Hospitalizations: : No recent hospitalization is reported. Screenin:10 Abuse screen: Denies threats or abuse. Nutritional screening: No deficits noted. em Tuberculosis screening: No symptoms or risk factors identified. Fall Risk None identified. Assessment: 12:15 General: Appears in no apparent distress. uncomfortable, Behavior is calm, cooperative, em drowsy, Reports having a crisis that started today Denies fever. Pain: Complains of pain in everywhere Pain currently is 10 out of 10 on a pain scale. Neuro: Level of Consciousness is awake, alert, obeys commands, Oriented to person, place, time, situation, Property Adjuster are weak on left Paresis in left hand(s) Speech is slurred, Pupils are dilated, Denies headache. Cardiovascular: Patient's skin is warm and dry. Respiratory: Airway is patent Respiratory effort is even, unlabored, Respiratory pattern is regular, symmetrical, Breath sounds are clear bilaterally. Derm: Skin is intact, is healthy with good turgor, Skin is pink, warm \T\ dry. Musculoskeletal: Range of motion: limited in left wrist. 12:30 Reassessment: I agree with previous assessment. hb 13:20 Reassessment: reports getting no relief from medication, request more pain medication, em provider notified. 14:10 Reassessment: Patient appears in no apparent distress at this time. Patient and/or em family updated on plan of care and expected duration. Pain level reassessed. Patient is alert, oriented x 3, equal unlabored respirations, skin warm/dry/pink. rates pain 10/10, request medication of itchiness, provider notified, new medication orders received. 15:30 Reassessment: Patient appears in no apparent distress at this time. Patient and/or em family updated on plan of care and expected duration. Pain level reassessed. Patient is alert, oriented x 3, equal unlabored respirations, skin warm/dry/pink. request more pain medication, provider notified, no new medication orders received, pending admission Dr. parker lopez pt. 16:24 Reassessment: Patient appears in no apparent distress at this time. Patient and/or em family updated on plan of care and expected duration. Pain level reassessed. Patient is alert, oriented x 3, equal unlabored respirations, skin warm/dry/pink. Vital Signs: 10:55 BP 142 / 100; Pulse 96; Resp 18; Temp 98.2; Pulse Ox 100% on R/A; Weight 69.4 kg; ph Height 5 ft. 3 in. (160.02 cm); Pain 10/10; 12:15 BP 146 / 110; Pulse 86; Resp 18; Pulse Ox 100% on 2 lpm NC; Pain 10/10; em 13:32 BP 142 / 107; Pulse 87; Resp 18; Pulse Ox 100% on 2 lpm NC; Pain 10/10; em 14:30 BP 146 / 103; Pulse 89; Resp 18; Pulse Ox 99% on R/A; Pain 10/10; em 16:35 BP 150 / 100; Pulse 79; Resp 20; Temp 98.4(O); Pulse Ox 100% on 2 lpm NC; Pain 10/10; em 16:36 BP 157 / 97; Pulse 83; Resp 18; Pulse Ox 99% on 2 lpm NC; em 10:55 Body Mass Index 27.10 (69.40 kg, 160.02 cm) ph ED Course: 10:35 Patient arrived in ED. mr 10:36 Adama Rod MD is Private Physician. mr 10:55 Triage completed. ph 10:58 Arm band placed on Patient placed in an exam room, Patient notified of wait time. ph 11:44 Sai Cano MD is Attending Physician. ma2 11:47 Salvador Escalona LVN is Primary Nurse. em 12:30 Patient has correct armband on for positive identification. Allergy band placed. Call em light in reach. Side rails up X 1. Pulse ox on. NIBP on. Notified ED physician of a critical lab result(s). hemoglobin 7.2. 12:45 Accessed Port-a-Cath. using accessed w/ # 20 Brasher needle, ,sterile technique, per hospital protocol. 13:09 Patient moved to radiology via wheelchair. tm4 13:09 X-ray completed. Patient tolerated procedure well. tm4 13:10 Chest Pa And Lat (2 Views) XRAY In Process Unspecified. EDMS 13:27 Manny Osorio MD is Hospitalizing Provider. ma2 16:32 No provider procedures requiring assistance completed. Patient admitted, IV remains in em place. Administered Medications: 12:30 Drug: Dilaudid 1 mg Route: IVP; Site: PICC; hb 13:21 Follow up: Response: No adverse reaction; Pain is unchanged, physician notified em 12:30 Drug: Phenergan 25 mg Route: IVP; Site: Port-a-cath; hb 13:21 Follow up: Response: No adverse reaction em 12:30 Drug: NS 0.9% 1000 ml Route: IV; Rate: 1 bolus; Site: Port-a-cath; hb 14:30 Follow up: IV Status: Completed infusion; IV Intake: 1000ml em 12:30 Drug: Benadryl 50 mg Route: IVP; Site: Port-a-cath; hb 13:21 Follow up: Response: No adverse reaction em 13:30 Drug: Dilaudid 1 mg Route: IVP; Site: Port-a-cath; hb 14:00 Follow up: Response: No adverse reaction; Pain is unchanged, physician notified em 14:37 Drug: Benadryl 50 mg Route: IVP; Site: Port-a-cath; hb 15:00 Follow up: Response: No adverse reaction; Marked relief of symptoms em Intake: 14:30 IV: 1000ml; Total: 1000ml. em Outcome: 13:28 Decision to Hospitalize by Provider. ma2 16:53 Admitted to Med/surg accompanied by tech, via wheelchair, room 419, with oxygen, with em chart, Report called to NIKKI Juárez 16:53 Condition: good 16:53 Instructed on the need for admit, Demonstrated understanding of instructions. 16:56 Patient left the ED. em Signatures: Dispatcher [employer] EDWV Regina Hollis, Jacquie tm4 Salvador Escalona, SUPERVISOR PLASMA SUPERVISOR PLASMA em Selina Huber RN RN Jessica Quiñones RN RN hb Alzahri, Mohammad, MD MD ma2 Corrections: (The following items were deleted from the chart) 16:37 13:32 BP 142 / 107; Pulse 87bpm; Resp 18bpm; Pulse Ox 100% RA; Pain 10/10; em em 16:37 16:35 BP 150 / 100; Pulse 79bpm; Resp 20bpm; Pulse Ox 100% RA; Temp 98.4F Oral; Pain em 10; em
[2018-08-15] MEDS ORDERED: ACETAMINOPHEN 500 MG TAB PO PRN (16:47)
[2018-08-15 17:32] VITALS: BMI 27.1
[2018-08-15] MEDS: NA CHLORIDE 0.9% 1,000 ML IV SCH (17:34)
[2018-08-15] MEDS: HYDROMORPHONE HCL 1 MG/ML INJ IV PRN ×2 (17:34→21:05)
[2018-08-15] MEDS ORDERED: INFLUENZA VACCINE (for 3y+) 0.5 ML DOSE IMVAC ONE (18:00)
[2018-08-15] MEDS ORDERED: DIPHENHYDRAMINE 25 MG TAB/CAP PO ONE (20:37)
[2018-08-15] MEDS: PROMETHAZINE 25 MG/ML VIAL IV PRN (21:04)
--- NOTE | 2018-08-15 23:41 | P.HP ---
Certification for Inpatient Patient admitted to: Observation With expected LOS: <2 Midnights Practitioner: I am a practitioner with admitting privileges, knowledge of patient current condition, hospital course, and medical plan of care. Services: Services provided to patient in accordance with Admission requirements found in Title 42 Section 412.3 of the Code of Federal Regulations Patient History Date of Service: 08/15/18 Reason for admission: sickle cell flare up History of Present Illness: Ms Berg is a 38 years old woman with history of sickle cell disease, seizure disorder, CVA, CAD, who came to the hospital complaining of generalized pain. She states that her symptoms started today. The pain was associated with nausea and some SOB. She denied vomiting or diarrhea. No history of fever or chills recently. Lab work remarkable for leukocytosis, hgb 7.2 mg/dl (possible close to her baseline) reticulocytes 28.2%. Allergies butorphanol tartrate [From Stadol] Allergy (Severe, Verified 08/11/17 06:27) seizures ketorolac tromethamine [From Toradol] Allergy (Severe, Verified 08/11/17 06:27) SEIZURES ondansetron HCl [From Zofran] Allergy (Severe, Verified 08/11/17 06:27) SEIZURES morphine Allergy (Intermediate, Verified 08/11/17 06:27) Hives fentanyl Allergy (Verified 04/16/18 03:32) Itching/Hives/Rash ondansetron [From Zofran (as hydrochloride)] Allergy (Verified 04/16/18 03:32) seizures tramadol Allergy (Verified 08/11/17 06:27) seizure trazodone Allergy (Verified 08/11/17 06:27) seizure metoclopramide [From Reglan] Adverse Reaction (Verified 08/11/17 06:27) SEIZURES Zofran (as Allergy (Uncoded 08/11/17 06:27) Unknown Zofran (as hydrochl Allergy (Uncoded 08/11/17 06:27) Unknown Zofran (as hydrochlori Allergy (Uncoded 08/11/17 18:30) Unknown Zofran (as hydrochloride) Allergy (Uncoded 12/01/17 03:47) Unknown Home medications list reviewed: Yes Home Medications: ALPRAZolam [Xanax*] 2 mg PO TID PRN 07/19/17 Hydrocodone 10/APAP 325 [Bosque 10/325*] 2 tab PO Q4H PRN 03/07/17 Hydroxyurea [Hydrea*] 500 mg PO TID 03/07/17 Promethazine HCl 25 mg PO Q4H PRN 03/07/17 hydrOXYzine HCl [Atarax] 50 mg PO BID PRN 03/07/17 levETIRAcetam [Keppra*] 250 mg PO TID 03/07/17 - Past Medical/Surgical History Diabetic: No -: Sickle cell disease -: History of CVA -: CAD -: Hypertension -: Seizure disorder -: Insomnia -: DC -: Endocarditis -: Right axillary lumpectomy -: Splenectomy -: Cholecystectomy -: Partial hysterectomy -: 6 portacaths -: 6 piccs -: Psychosocial/ Personal History: The patient is . She has 2 children. - Family History Father -: Heart disease, Hypertension Mother -: Hypertension - Social History Smoking Status: Never smoker Alcohol use: No CD- Drugs: No Caffeine use: Yes Place of Residence: Home Review of Systems 10-point ROS is otherwise unremarkable Physical Examination - Vital Signs Temperature: 97.2 F Blood Pressure: 132/97 Pulse: 85 Respirations: 18 Pulse Ox (%): 100 - Physical Exam General: Alert, Mild distress (due to generalized pain. She is asking to incrase the dose of IV opioid medication.) HEENT: Atraumatic, PERRLA, Mucous membr. moist/pink, EOMI, Sclerae nonicteric Neck: Supple, 2+ carotid pulse no bruit, No LAD, Without JVD or thyroid abnormality Respiratory: Clear to auscultation bilaterally, Normal air movement Cardiovascular: Normal S1 S2, No gallops Gastrointestinal: Normal bowel sounds, No tenderness Musculoskeletal: No tenderness Integumentary: No rashes Neurological: Normal speech, Normal strength at 5/5 x4 extr, Normal tone, Normal affect Lymphatics: No axilla or inguinal lymphadenopathy - Studies Laboratory Data (last 24 hrs) 08/15/18 12:05: Creatinine 0.54 L 08/15/18 12:05: WBC 16.1 H, Hgb 7.2 L*, Hct 21.0 L, Plt Count 336 08/15/18 12:05: Sodium 137, Potassium 4.4, BUN 8, Creatinine 0.52 L, Glucose 97 , Total Bilirubin 2.9 H, AST 175 H, ALT 97 H, Alkaline Phosphatase 209 H, Lipase 130 Assessment and Plan - Problems (Diagnosis) (1) Generalized pain Current Visit: Yes Status: Acute (2) Leukocytosis Onset Date: 02/03/16 Current Visit: No Status: Acute Qualifiers: Leukocytosis type: unspecified Qualified Code(s): D72.829 - Elevated white blood cell count, unspecified (3) Sickle cell crisis Onset Date: 09/06/15 Current Visit: No Status: Acute (4) CAD (coronary artery disease) Onset Date: 03/07/17 Current Visit: No Status: Chronic Qualifiers: Coronary Disease-Associated Artery/Lesion type: [place] artery [place] vs. transplanted heart: [place] heart Associated angina: without angina Qualified Code(s): I25.10 - Atherosclerotic heart disease of [place] coronary artery without angina pectoris (5) History of CVA (cerebrovascular accident) Current Visit: No Status: Chronic - Plan The patient will be admitted to the hospital due to sickle cell flare up. There is no obvious signs of superimpose infection. Will order IV fluids, oxygen support and pain management. - Advance Directives Does patient have a Living Will: No Does patient have a Durable POA for Healthcare: No - Code Status/Comfort Care Code Status Assessed: Yes Code Status: Full Code
[2018-08-16] MEDS: PROMETHAZINE 25 MG/ML VIAL IV PRN ×6 (01:04→21:39)
[2018-08-16] MEDS: HYDROMORPHONE HCL 1 MG/ML INJ IV PRN ×6 (01:04→21:32)
[2018-08-16] MEDS: NA CHLORIDE 0.9% 1,000 ML IV SCH ×3 (01:11→17:02)
[2018-08-16 09:24] LABS: Absolute Monocytes 3.5 K/uL (0.1-1.3); Absolute Neutrophil 9.8 K/uL (1.8-8.0); Basophils % 2.7 % (0-1.3); Eosinophils % 2.9 % (0-4.4); Hematocrit 18.2 % (36.0-45.0); Lymphocytes % 25.8 % (15.3-44.8); MPV 8.6 fL (7.6-11.3); Monocytes % 17.9 % (3.3-12.3); RBC Red Blood Cell Count 1.68 M/uL (3.86-4.86)
[2018-08-16] MEDS ORDERED: FUROSEMIDE 20 MG/ 2ML VIAL IV ONE (10:06)
[2018-08-16 10:09] LABS: Urine White Blood Cell Casts DIFF
[2018-08-16 10:10] LABS: Platelet Estimate ADEQ; Platelets, Giant PRESENT
[2018-08-16 10:11] LABS: Anisocytosis 3+; Blood Morphology Comment NOTED (NOT SEEN); Hypochromasia 1+; Macrocytosis 1+; Ovalocytes 1+; Target Cells FEW
[2018-08-16 10:19] LABS: Potassium 4.2 mmol/L (3.5-5.1); Sodium Level 140 mmol/L (136-145)
[2018-08-16 10:21] LABS: BUN Blood Urea Nitrogen 11 mg/dL (7-18); Bicarbonate 30 mmol/L (21-32); Glucose Level 97 mg/dL (74-106)
[2018-08-16 10:24] LABS: ALT/SGPT 83 U/L (12-78); AST/SGOT 152 U/L (15-37)
[2018-08-16 10:26] LABS: Bilirubin Total 2.5 mg/dL (0.2-1.0); Protein, Total 8.4 g/dL (6.4-8.2)
[2018-08-16 10:27] LABS: Alkaline Phosphatase 219 U/L (45-117)
[2018-08-16] MEDS ORDERED: hydrOXYzine HCl 25 MG TAB PO PRN (11:05)
[2018-08-16] MEDS: levETIRAcetam 500 MG TAB PO SCH ×2 (14:31→20:01)
[2018-08-16] MEDS: HYDROCODONE/APAP 10/325 TAB PO PRN ×2 (15:47→20:01)
--- NOTE | 2018-08-16 20:49 | PN ---
Date of Progress Note: 08/16/2018 Subjective: The patient was seen and examined. Chart reviewed and case discussed with RN. The heladio ent complains of significant amount of pain in her arm and her chest. The patient also is requesting higher dose of Dilaudid. Medications: List reviewed. Physical Examination: Vital Signs: Temperature 97, heart rate 95, blood pressure 119/61, respirations 18, O2 100% on room air. General: Awake, alert, and oriented x3 in moderate distress due to pain. CV: S1, S2. Regular rate and rhythm. No murmurs. Respiratory: Moving air well bilaterally. No wheezing. Gastrointestinal: Abdomen is soft, nontender, nondistended. Positive bowel sounds. Extremities: No clubbing, cyanosis, or edema. Neurologic: Nonfocal. Laboratory Data: WBC 19.4, H and H 6.1 and 18.2, platelets 255. Sodium 140, potassium 4.2, chloride 106, CO2 30, BUN 11, creatinine 0.51, glucose 97. Assessment And Plan: A 38-year-old female with; 1.Acute sickle cell crisis. We will continue with IV fluid and hydration. We will increase rate of IV fluids. Transfuse 1 unit of PRBCs. 2.Sickle cell anemia. H and H dropped to 6.1. We will transfuse 1 unit with Lasix 20 mg IV after t he first unit. 3.Generalized pain. 4.Leukocytosis secondary to sickle cell crisis. 5.Coronary artery disease [place] artery and [place] heart without angina. 6.History of cerebrovascular accident. Plan: Continue with current treatment. We will adjust pain medications. Resume home medications as appropriate, might be discontinued in the next 24-48 hours depending on pain improvement and hemoglobin levels. /RAUDEL Voice ID: [id number] Report ID: [id number]
[2018-08-17] MEDS: HYDROCODONE/APAP 10/325 TAB PO PRN ×2 (00:05→21:06)
[2018-08-17] MEDS: ALPRAZOLAM 1 MG TABLET PO PRN ×2 (00:06→21:06)
[2018-08-17] MEDS: NA CHLORIDE 0.9% 1,000 ML IV SCH ×4 (00:10→21:07)
[2018-08-17] MEDS ORDERED: NA CHLORIDE 0.9% 250 ML ONE (00:13)
[2018-08-17] MEDS: HYDROMORPHONE HCL 1 MG/ML INJ IV PRN ×6 (01:42→23:00)
[2018-08-17] MEDS: PROMETHAZINE 25 MG/ML VIAL IV PRN ×6 (01:43→22:59)
[2018-08-17] MEDS ORDERED: FUROSEMIDE 20 MG/ 2ML VIAL ONE (05:26)
[2018-08-17 08:14] LABS: BUN Blood Urea Nitrogen 17 mg/dL (7-18); Bicarbonate 31 mmol/L (21-32); Glucose Level 105 mg/dL (74-106); Potassium 4.8 mmol/L (3.5-5.1); Sodium Level 142 mmol/L (136-145)
[2018-08-17 08:30] LABS: Absolute Lymphocytes (CBC) 5.5 K/uL (0.7-4.9); Absolute Monocytes 2.6 K/uL (0.1-1.3); Absolute Neutrophil 6.9 K/uL (1.8-8.0); Basophils % 2.2 % (0-1.3); Eosinophils % 2.4 % (0-4.4); Hematocrit 19.8 % (36.0-45.0); Lymphocytes % 34.7 % (15.3-44.8); MPV 8.8 fL (7.6-11.3); Monocytes % 16.8 % (3.3-12.3); RBC Red Blood Cell Count 1.91 M/uL (3.86-4.86)
[2018-08-17 10:08] LABS: Urine Appearance CLEAR; Urine Bilirubin NEGATIVE (NEG); Urine Blood NEGATIVE (NEG); Urine Color YELLOW; Urine Glucose NEGATIVE (NEG); Urine Protein NEGATIVE (NEG); Urine pH 5.5 (5.0-7.0)
[2018-08-17 10:33] LABS: Urine Bacteria <20 /HPF (<20); Urine Culture Reflex Order NOT NEEDED; Urine Mucus 1+ /HPF (NONE SEEN); Urine RBC <5 /HPF (NONE SEEN)
[2018-08-17 10:34] LABS: Urine Amorphous Sediment 2+ /HPF (NONE SEEN)
[2018-08-17] MEDS: levETIRAcetam 500 MG TAB PO SCH ×3 (10:37→21:05)
[2018-08-17 15:09] LABS: Hematocrit 19.6 % (36.0-45.0)
--- NOTE | 2018-08-17 22:29 | PN ---
Date of Progress Note: 08/17/2018 History: The patient is seen and examined. Chart reviewed and case discussed with RN. The patient states her pain is better controlled. Still having some pain in her chest and her arms. Medications: List reviewed. Physical Examination: Vital Signs: Temperature 98.2, heart rate 99, blood pressure 121/68, respirations 18, O2 100% on 2 L via nasal cannula. General: Awake, alert, oriented x3. Some mild distress due to pain, ill-appearing female. CV: S1, S2. Regular rate and rhythm. Peripheral pulses present. Respiratory: Moving air well bilaterally. No wheezing. Gastrointestinal: Abdomen is soft, nontender, nondistended. Positive bowel sounds. Extremities: No clubbing, cyanosis, edema. Neurologic: The patient does have some weakness of the left upper extremity. Speech is normal. Laboratory Data: Sodium 142, potassium 4.8, chloride 105, CO2 31, BUN 17, creatinine 0.61, glucose 105, calcium 8.9. WBC 15.7, H and H 6.7 and 19.8, platelets 247. Repeat H and H are 6.8 and 19.6. Retic count is 20. Assessment And Plan: A 38-year-old female with: 1. Acute sickle cell crisis. Continue IV fluid hydration. Continue IV pain medications. The patient is asking for increased dose of Dilaudid, however, we will try since adding [place] first. The patient has been transfused 1 unit PRBC so far. 2. Sickle cell disease. H and H improved after transfusion. Repeat H and H is stable at 6.8 The patient's baseline is about 7.2. We will hold off on excessive transfusion due to buildup of antibodies. We will continue to monitor. 3. Generalized pain. 4. Leukocytosis secondary to sickle cell crisis, improved. 5. Coronary artery disease [place] artery and [place] heart without angina. 6. History of cerebrovascular accident with left upper extremity weakness. 7. Gastrointestinal and deep venous thrombosis prophylaxis PPI and SCDs. No chemical anticoagulation due to sickle cell anemia. Plan: Likely discontinue in a.m. as pain improves and able to be weaned off IV pain medications. /MODL Voice ID: [id number] Report ID: [id number] NATALIE
[2018-08-18] MEDS: HYDROMORPHONE HCL 1 MG/ML INJ IV PRN ×2 (02:47→06:33)
[2018-08-18] MEDS: PROMETHAZINE 25 MG/ML VIAL IV PRN ×2 (02:47→06:33)
[2018-08-18] MEDS ORDERED: NA CHLORIDE 0.9% 1,000 ML IV SCH (05:00)
[2018-08-18] MEDS: HYDROCODONE/APAP 10/325 TAB PO PRN (05:30)
[2018-08-18 06:01] LABS: Absolute Lymphocytes (CBC) 5.6 K/uL (0.7-4.9); Absolute Monocytes 2.9 K/uL (0.1-1.3); Absolute Neutrophil 9.1 K/uL (1.8-8.0); Basophils % 1.9 % (0-1.3); Eosinophils % 2.7 % (0-4.4); Lymphocytes % 30.5 % (15.3-44.8); MPV 8.8 fL (7.6-11.3); Monocytes % 15.6 % (3.3-12.3); RBC Red Blood Cell Count 1.91 M/uL (3.86-4.86)
[2018-08-18 06:03] LABS: Hematocrit 19.9 % (36.0-45.0)
[2018-08-18 06:04] LABS: Anisocytosis 3+; Platelet Estimate ADEQ; Urine White Blood Cell Casts OK
[2018-08-18 06:05] LABS: Blood Morphology Comment NOTED (NOT SEEN)
[2018-08-18 06:10] LABS: BUN Blood Urea Nitrogen 17 mg/dL (7-18); Bicarbonate 32 mmol/L (21-32); Glucose Level 98 mg/dL (74-106); Potassium 5.2 mmol/L (3.5-5.1); Sodium Level 143 mmol/L (136-145)
[2018-08-18] MEDS: levETIRAcetam 500 MG TAB PO SCH (08:41)
[2018-08-18 08:53] VITALS: BP 107/55; TEMP 98.1
[2018-08-18 09:34] VITALS: O2SAT 98
[2018-08-18] MEDS ORDERED: HEPARIN 500 UNIT/5 ML SYR IV ONE (10:45)
[2018-08-18] MEDS ORDERED: NALOXONE 0.4 MG/ML VIAL IV ONE (13:38)
--- NOTE | 2018-08-19 11:14 | DS ---
Date of Discharge: 08/18/2018 Admitting Diagnoses: 1.Sickle cell crisis. 2.Generalized pain. 3.Leukocytosis. 4.Coronary artery disease. 5.History of cerebrovascular accident. Discharge Diagnoses: 1.Acute sickle cell crisis, improving. 2.Sickle-cell anemia, status post 1 unit PRBCs. 3.Generalized pain, improved. 4.Leukocytosis secondary to sickle cell crisis. 5.Coronary artery disease, [place] artery and [place] heart without angina. 6.History of cerebrovascular accident. Hospital Course: The patient is a 38-year-old female, well known to the hospitalist service with rec urrent admissions for sickle cell crisis, comes in with acute pain in her chest and right arm related to her sickle cell disease. The patient was found to have a hemoglobin of 7.2, which is close to he r baseline. Infectious workup was negative including UA and chest x-ray. The patient was started on IV fluid hydration. Her CBC was monitored closely. She did require 1 unit PRBC transfusion as her hemoglobin dropped to 6.1. Subsequent hemoglobin remained around 6.8, which is slightly below her ba seline of about 7.2. The patient did have a good retic count and was responding well. She did have some leukocytosis related to the end sickle cell anemia. The patient again demanded high amounts of narcotics, however, was a limited to find balance between pain control and watching her respirations. The patient overall did well. Her pain improved. She did not have any further chest pain or arm p ain. The patient was then cleared for discharge and was recommended to follow up with her primary ca re physician in 2 to 3 days. Follow up with the electronics assembler, Dr. Guaman in [place] in 2 weeks. Retu rn to ER for worsening condition. Diet: Heart healthy diet. Activity: No driving or operating heavy machinery while on narcotics. Medications: As per medication reconciliation list. Physical Examination: General: Asleep, but arousable. No acute distress. CV: S1, S2. Peripheral pulses present. Respiratory: Moving air well bilaterally. Abdomen: Soft, nontender, nondistended. Positive bowel sounds. Extremities: No clubbing, cyanosis, or edema. Neuro: The patient has some left upper extremity weakness. Total time spent discharging the patient was 35 minutes. /RAUDEL Voice ID: [id number] Report ID: [id number]
== END 2018-08-18 16:05 | disposition home or self-care (01) | DRG 812 ==
LOC: ER 10:33 → ERHOLD 13:42 → 4TH 16:35 → OBSVTOIN 08-17 15:20
PROVIDERS: ADMIT Family Medicine; ATTEND Internal Medicine
PROC: 30233N0 Transfusion of Autologous Red Blood Cells into Peripheral Vein, Percutaneous Approach (ICD-10-PCS; principal; 2018-08-17)
DX: D57.00 Hb-SS disease with crisis, unspecified (principal); R52 Pain, unspecified; D72.829 Elevated white blood cell count, unspecified; I25.10 Atherosclerotic heart disease of native coronary artery without angina pectoris; Z86.73 Personal history of transient ischemic attack (TIA), and cerebral infarction without residual deficits
CPT/HCPCS: 36415; 71046; 80048; 80053; 80076; 81001; 83690; 85014; 85018; 85025; 85044; 86850; 86870; 86900; 86901; 86922; 94760; 99285; J1170; J1642; J1940; J2550; J7030; P9016

== ENCOUNTER 2018-09-15 16:17 | Emergency (ER) | payer OTHER ==
--- OUTSIDE RECORDS SUMMARY | 2018-09-15 16:20 | XMS REPORT | Clinical Summary ---
:1980 Author Organization [facility] Address [address] [place] [address] Care Team Providers Name Role Phone Kwesi Guaman MD Primary Care Provider Unavailable Chavo Pate Unavailable Allergies Active Allergy Reactions Severity Noted Date Comments Morphine Other (See Comments) 11/27/2013 seizures Butorphanol Tartrate Other (See Comments) 11/27/2013 seizures Rcs-Mv-Mqg-Cavdwvfq-Ypyut-Chcl 10/01/2014 seizure Ketorolac Other (See Comments) 11/27/2013 [...] crisis (HCC) (Primary Traci Obregon RN Dx) after 09/14/2017 Family History Medical History Relation Name Comments [...] SERVICE 09/28/2017 5:44 REPORT - SCAN 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 after 09/14/2017 Results EKG-SCANNED (02/11/2018 10:10 AM CDT) Narrative Performed At Manual Differential (02/08/2018 5:03 AM CDT)Only the most recent of9 resultswithin the time period is included. % Neutros 66 % [facility] % Lymphs 22 % [facility] % Monos 8 % [facility] % Eos 3 % [facility] # Neutros 9.44 (H) 1.56 - 6.13 K/ul [facility] # Lymphs 3.15 1.18 - 3.74 K/ul [facility] # Monos 1.14 (H) 0.24 - 0.36 K/uL [facility] # Eos 0.43 (H) 0.04 - 0.36 K/uL [facility] Total Counted 100 [facility] nRBC (manual) 5 (H) 0 - 0 /100 WBC [facility] WBC Morphology Normal [facility] Platelet Morphology Normal [facility] Anisocytosis 2+ moderate [facility] Macrocytes 1+ few [facility] Target Cells 1+ few [facility] Sickle Cells 1+ few [facility] Doty-Gowrie Bodies 1+ few [facility] Artifact Present [facility] Platelet Conc Adequate [facility] Specimen Blood - Central Venous Line Narrative Performed At Received comment: [facility] User comments: Slide comments: Performing Organization Address City/State/Zipcode Phone Number [facility] [address] [place] [address] CENTER CBC with platelet count + automated diff (02/08/2018 5:03 AM CDT)Only the most recent of28 resultswithin the time period is included. WBC 14.3 (H) 3.5 - 10.5 K/L [facility] RBC 2.54 (L) 3.93 - 5.22 M/L [facility] Hemoglobin 7.3 (L) 11.2 - 15.7 GM/DL [facility] Hematocrit 23.4 (L) 34.1 - 44.9 % [facility] MCV 92.1 79.4 - 94.8 fL [facility] MCH 28.7 25.6 - 32.2 pg [facility] MCHC 31.2 (L) 32.2 - 35.5 GM/DL [facility] RDW 21.4 (H) 11.7 - 14.4 % [facility] Platelets 239 150 - 450 K/CU MM [facility] MPV 11.0 9.4 - 12.3 fL [facility] nRBC 4 (H) 0 - 0 /100 WBC [facility] Specimen Blood - Central Venous Line Performing Organization Address City/[facility]/Zipcode Phone Number [facility] [address] [place] [address] CENTER Basic Metabolic Panel (02/08/2018 5:03 AM CDT)Only the most recent of30 resultswithin the time period is included. Sodium 138 136 - 145 meq/L [facility] Potassium 5.9 (H) 3.5 - 5.1 meq/L [facility] Chloride 102 98 - 107 meq/L [facility] CO2 30 (H) 22 - 29 meq/L [facility] BUN 15 7 - 21 mg/dL [facility] Creatinine 0.68 0.57 - 1.25 mg/dL [facility] Glucose 87 70 - 105 mg/dL [facility] Calcium 9.6 8.4 - 10.2 mg/dL [facility] EGFR 117Comment: ESTIMATED GFR IS mL/min/1.73 sq m [facility] NOT ACCURATE CREATININE [facility] CENTER CLEARANCE IN PREDICTING GLOMERULAR FILTRATION RATE. ESTIMATED GFR IS NOT APPLICABLE FOR DIALYSIS PATIENTS. Specimen Blood - Central Venous Line Performing Organization Address City/[facility]/Zipcode Phone Number [facility] [address] [place] [address] CENTER Manual Differential (02/06/2018 5:58 AM CDT)Only the most recent of11 resultswithin the time period is included. % Neutros (manual) 64 % [facility] % Lymphs (manual) 22 % [facility] % Monos (manual) 8 % [facility] % Eos (manual) 6 % [facility] % Baso (manual) 0 % [facility] # Neutros (manual) 8.26 (H) 1.80 - 8.00 K/L [facility] # Lymphs (manual) 2.84 1.48 - 4.50 K/L [facility] # Monos (manual) 1.03 0.00 - 1.30 K/L [facility] # Eos (manual) 0.77 (H) 0.00 - 0.50 K/L [facility] # Baso (manual) 0.00 0.00 - 0.20 K/L [facility] Total Counted 100 [facility] nRBC (manual) 8 (H) 0 - 0 /100 WBC [facility] WBC Morphology Normal [facility] Platelet Morphology Normal [facility] Anisocytosis 2+ moderate [facility] Sickle Cells 2+ moderate [facility] Specimen Blood - Central Venous Line Performing Organization Address City/State/Zipcode Phone Number [facility] [address] [place] [address] CENTER TRANSFUSION SERVICE REPORT - SCAN (02/05/2018 6:00 PM CDT)Only the most recent of15 resultswithin the time period is included. Narrative Performed At Prepare Leuko-Red RBC (02/04/2018 11:54 PM CDT)Only the most recent of5 resultswithin the time period is included. Unit ABO O Pos [place] UNIT NUMBER [id number] [place] Status WORK IN PROGRESS [place] Blood Bank Product RED BLOOD CELLS [place] PRODUCT CODE [id number] [place] Unit ABO O Pos [place] UNIT NUMBER [id number] [place] Status WORK IN PROGRESS [place] Blood Bank Product RED BLOOD CELLS [place] PRODUCT CODE [id number] [place] CROSSMATCH COMPATIBLE [place] Unit ABO O Pos [place] UNIT NUMBER [id number] [place] Status TRANSFUSED [place] Blood Bank Product RED BLOOD CELLS [place] PRODUCT CODE [id number] [place] CROSSMATCH COMPATIBLE [place] Unit ABO O Pos [place] UNIT NUMBER [id number] [place] Status TRANSFUSED [place] Blood Bank Product RED BLOOD CELLS [place] PRODUCT CODE [id number] [place] Specimen Other Performing Organization Address City/[facility]/Zipcode Phone Number [place] Transfuse Leuko-Red RBC (02/03/2018 10:59 PM CDT)Only the most recent of12 resultswithin the time period is included.Type and screen, automated (2017 8:30 AM CDT)Only the most recent of5 resultswithin the time period is included. ABO/RH AUTOMATED (BEAKER) O POSITIVE [facility] Ab Scrn POSITIVEComment: Antibody [facility] identified within 7 days [facility] Specimen Blood Performing Organization Address City/[facility] Centercode Phone Number [facility] [address] [place] [phone] Urinalysis w/Microscopic (02/01/2018 7:45 PM CDT)Only the most recent of4 resultswithin the time period is included. Color, UA Yellow [facility] Clarity, UA Hazy [facility] Specific [place], UA 1.009 1.001 - 1.035 [facility] pH, UA 5.5 5.0 - 8.0 [facility] Protein, UA 20 mg/dL (A) Negative [facility] Glucose, UA Negative Negative [facility] Ketones, UA Negative Negative [facility] Bilirubin, UA Negative Negative [facility] Blood, UA Small (A) Negative [facility] Nitrite, UA Negative Negative [facility] Leukocytes, UA Small (A) Negative [facility] Urobilinogen, UA 0.2 0.2 - 1.0 mg/dL [facility] RBC, UA 1 /HPF [facility] WBC, UA 4 /HPF [facility] Bacteria, UA Few [facility] Mucus Occasional [facility] Squam Epithel, UA 8 /HPF [facility] Specimen Source Urine, Voided [facility] Specimen Urine - Urine, Voided Performing Organization Address City/[facility] Centercode Phone Number [address] [address] CENTER Antibody identification (01/30/2018 3:13 PM CDT)Only [...] Signature: Kaushik Flores M.D. Performing Organization Address City/[facility] Centercode Phone Number [place] Reticulocyte count (01/29/2018 4:28 PM CDT) % Retic >30.0 (H) 0.5 - 1.7 % [facility] Specimen Blood Performing Organization Address City/[facility]/Zipcode Phone Number [address] [address] CENTER Lactate dehydrogenase (LDH) (01/29/2018 4:28 PM CDT)Only the most recent of2 resultswithin the time period is included. LDH 989 (H) 125 - 220 U/L [facility] Specimen Blood Performing Organization Address [facility] Centercode Phone Number [address] [address] [phone] [facility] Ferritin (01/29/2018 4:28 PM CDT)Only the most recent of2 resultswithin the time period is included. Ferritin 22,730 (H) 5 - 275 ng/mL [facility] Specimen Blood Performing Organization Address [facility] Centercowv Phone Number [address] [address] [facility] CARDIAC CATH REPORT - SCAN (11/27/2017 8:52 PM CDT) Narrative Performed At Calcium, Ionized (11/25/2017 4:38 AM CDT)Only the most recent of14 resultswithin the time period is included. Calcium, Ion 1.10 (L) 1.12 - 1.27 mmol/L [facility] pH, Blood 7.30 [facility] Specimen Blood Performing Organization Address [facility] Phone Number [address] [address] [phone] [facility] Phosphorus (11/25/2017 4:38 AM CDT)Only the most recent of15 resultswithin the time period is included. Phosphorus 4.7 2.3 - 4.7 mg/dL [facility] Specimen Blood Performing Organization Address [facility] Phone Number [address] [address] CENTER Magnesium (11/25/2017 4:38 AM CDT)Only the most recent of16 resultswithin the time period is included. Magnesium 1.4 (L) 1.6 - 2.6 mg/dL [facility] Specimen Blood Performing Organization Address [facility] Centercode Phone Number [address] [address] [phone] CENTER Uric acid (11/24/2017 5:36 AM CDT) Uric Acid 4.8 2.6 - 7.2 mg/dL [facility] Specimen Blood Performing Organization Address City/State/Zipcode Phone Number [address] [address] [facility] Creatine Kinase (CK) (11/24/2017 5:36 AM CDT) Total CK 8 (L) 29 - 200 U/L [facility] Specimen Blood Performing Organization Address City/[facility] Centercode Phone Number [address] [address] [phone] [facility] Potassium (11/23/2017 5:35 PM CDT)Only the most recent of3 resultswithin the time period is included. Potassium 5.5 (H) 3.5 - 5.1 meq/L [facility] Specimen Blood - Central Venous Line Narrative Performed At Call if K > 5.4 to renal [phone] [facility] Performing Organization Address [facility] Centercowv Phone Number [address] [address] [phone] CENTER Electrolytes (11/22/2017 12:30 PM CDT) Sodium 137 136 - 145 meq/L [facility] Potassium 5.4 (H) 3.5 - 5.1 meq/L [facility] Chloride 100 98 - 107 meq/L [facility] CO2 30 (H) 22 - 29 meq/L [facility] Specimen Blood - Portacath Narrative Performed At Call results [phone] [facility] Performing Organization Address City/State/Zipcode Phone Number [address] [address] CENTER B-type Natriuretic Factor (BNP) (11/21/2017 4:56 AM CDT)Only the most recent of3 resultswithin the time period is included. BNP 120 (H) 0 - 100 pg/mL [facility] Specimen Blood Performing Organization Address City/State/Zipcode Phone Number [address] [address] [phone] [facility] Blood gas, venous (11/20/2017 6:44 AM CDT) pH, Moises 7.34 7.32 - 7.42 [facility] pCO2, Moises 63 (H) 41 - 51 mmHg [facility] pO2, Moises 133 (H) 25 - 40 mmHg [facility] O2 Sat, Moises 98.4 (H) 40.0 - 70.0 % [facility] HCO3, Moises 33 (H) 21 - 29 mmol/L [facility] Base Excess, Moises 6.6 (H) -2.0 - 3.0 mmol/L [facility] Patient Temperature 37.0 C [facility] FIO2 21.0 % [facility] Specimen Blood Performing Organization Address City/State/Zipcode Phone Number [address] [address] [facility] CBC (Hemogram only) (11/19/2017 6:25 AM CDT) WBC 15.3 (H) 3.5 - 10.5 K/L [facility] RBC 2.42 (L) 3.93 - 5.22 M/L [facility] Hemoglobin 7.1 (L) 11.2 - 15.7 GM/DL [facility] Hematocrit 22.5 (L) 34.1 - 44.9 % [facility] MCV 93.0 79.4 - 94.8 fL [facility] MCH 29.3 25.6 - 32.2 pg [facility] MCHC 31.6 (L) 32.2 - 35.5 GM/DL [facility] RDW 20.9 (H) 11.7 - 14.4 % [facility] Platelets 324 150 - 450 K/CU MM [facility] MPV 11.8 9.4 - 12.3 fL [facility] nRBC 1 (H) 0 - 0 /100 WBC [facility] Specimen Blood - Central Venous Line Performing Organization Address [facility] Centercode Phone Number [address] [address] CENTER Hepatic function panel (11/17/2017 4:51 AM CDT)Only the most recent of2 resultswithin the time period is included. Protein, Total 8.3 6.0 - 8.3 gm/dL [facility] Albumin 3.0 (L) 3.5 - 5.0 g/dL [facility] Total Bilirubin 1.3 (H) 0.2 - 1.2 mg/dL [facility] Bilirubin, Direct 0.7 (H) 0.1 - 0.5 mg/dL [facility] Alkaline Phosphatase 217 (H) 40 - 150 U/L [facility] AST 106 (H) 5 - 34 U/L [facility] ALT 46 6 - 55 U/L [facility] Specimen Blood - Central Venous Line Performing Organization Address City/[facility]/Zipcode Phone Number [facility] [address] [place] [address] CENTER Prepare RBC (11/16/2017 11:55 PM CDT) Unit ABO O Pos SAFETRACE [place] UNIT NUMBER [id number] [place] Status TRANSFUSED [place] Blood Bank Product RED BLOOD CELLS [place] PRODUCT CODE [id number] [place] Unit ABO O Pos [place] TX UNIT NUMBER [id number] [place] Status TRANSFUSED [place] Blood Bank Product RED BLOOD CELLS [place] PRODUCT CODE [id number] [place] CROSSMATCH COMPATIBLE [place] CROSSMATCH COMPATIBLE [place] Performing Organization Address City/[facility]/Zipcode Phone Number [place] XR chest 2 [...] MD Report Verified Date/Time:11/16/2017 10:47:19 Reading Location: [facility] Radiology Reading Room Procedure Note Interface, [...] Report Verified Date/Time: 11/16/2017 10:47:19 Reading Location: [facility] Radiology Reading Room Performing Organization Address City/State/[facility] Centercode Phone Number GE RIS XR [...] MD Report Verified Date/Time:11/16/2017 12:28:43 Reading Location: [facility] Radiology Reading Room Procedure Note Interface, [...] Report Verified Date/Time: 11/16/2017 12:28:43 Reading Location: [facility] Radiology Reading Room Performing Organization Address City/State/Zipcode Phone Number RIS Anti-Mitochondrial Ab, reflex to titer (11/16/2017 9:35 AM CDT) Scan Result [facility] Specimen Blood - Central Venous Line Narrative Performed At Performing Organization Address City/State/Zipcode Phone Number [facility] [place] [address] [facility]ORPOR[facility] [address] [facility] Actin (Smooth Muscle) Antibody, IgG (11/16/2017 9:35 [...] Lab [facility] EZ [facility] [address] [address] Irwin Marquez MD, PhD Performing Organization Address [facility] Centercode Phone Number [place] [address] [facility]ORPORATED [address] [facility] AMARILYS Titer & Pattern (11/16/2017 9:35 AM CDT) AMARILYS Titer 1:160 [facility] AMARILYS Pattern Multiple nuclear dots pattern [facility] Specimen Blood - Central Venous Line Performing Organization Address [facility] Centercowv Phone Number [address] [address] [phone] [facility] Hepatitis panel, acute (11/16/2017 9:35 AM CDT) Hep A IgM HEPATITIS A TEST NEGATIVE Nonreactive [facility] Hep B C IgM NON-REACTIVE Nonreactive [facility] Hepatitis C Ab NON-REACTIVE Nonreactive [facility] hepatitis B Surface Ag NON-REACTIVE Nonreactive [facility] Specimen Blood - Central Venous Line Performing Organization Address [facility] Centercode Phone Number [address] [address] [phone] CENTER Anti-Nuclear Antibody (AMARILYS) (11/16/2017 9:35 AM CDT) AMARILYS Positive (A) Negative [facility] Specimen Blood - Central Venous Line Performing Organization Address [facility] Centercode Phone Number [address] [address] CENTER XR abdomen / KUB 1 view (11/15/2017 12:05 PM CDT) Narrative Performed At FINAL REPORT [employer] RIS Abdomen one view INDICATION: Abdominal pain [...] MD Report Verified Date/Time:11/15/2017 12:43:04 Reading Location: [facility] Radiology Reading Room Procedure Note Interface, [...] Report Verified Date/Time: 11/15/2017 12:43:04 Reading Location: [facility] Radiology Reading Room Performing Organization Address City/State/Zipcode Phone Number GE RIS US Endovaginal (11/15/2017 7:00 AM CDT) Narrative Performed At FINAL REPORT [employer] TECHNIQUE: Transvaginal grayscale ultrasound of the pelvis [...] MD Report Verified Date/Time:11/15/2017 09:03:15 Reading Location: [address] Ultrasound Reading Room Procedure Note Interface, [...] Report Verified Date/Time: 11/15/2017 09:03:15 Reading Location: [address] Ultrasound Reading Room Performing Organization Address City/State/Zipcode Phone Number [facility] Lipase (11/15/2017 5:30 AM CDT) Lipase 95 (H) 8 - 78 U/L [facility] Specimen Blood - Central Venous Line Performing Organization Address City/[facility]/Zipcode Phone Number [facility] [address] [place] [address] [facility] Urine culture (11/14/2017 6:19 AM CDT) Result >100,000 col/mL skin valentino [facility] Specimen Urine - Urine, Clean Catch Performing Organization Address [facility] Centercode Phone Number [facility] [address] [place] [address] [facility] Blood culture (11/13/2017 11:20 PM CDT)Only the most recent of2 resultswithin the time period is included. Result No growth in 5 days [facility] Specimen Blood - Portacath Performing Organization Address [facility] Centercowv Phone Number [address] [address] [phone] [facility] ECHOCARDIOGRAM REPORT - SCAN (11/10/2017 1:20 PM CDT) Narrative Performed At Comprehensive metabolic panel (11/10/2017 5:56 AM CDT)Only the most recent of4 resultswithin the time period is included. Protein, Total 8.2 6.0 - 8.3 gm/dL [facility] Albumin 3.1 (L) 3.5 - 5.0 g/dL [facility] Alkaline Phosphatase 154 (H) 40 - 150 U/L [facility] Total Bilirubin 1.4 (H) 0.2 - 1.2 mg/dL [facility] Sodium 140 136 - 145 meq/L [facility] Potassium 4.0 3.5 - 5.1 meq/L [facility] Chloride 109 (H) 98 - 107 meq/L [facility] CO2 19 (L) 22 - 29 meq/L [facility] BUN 21 7 - 21 mg/dL [facility] Creatinine 1.27 (H) 0.57 - 1.25 mg/dL [facility] Glucose 122 (H) 70 - 105 mg/dL [facility] Calcium 8.6 8.4 - 10.2 mg/dL [facility] AST 72 (H) 5 - 34 U/L [facility] ALT 50 6 - 55 U/L [facility] EGFR 57Comment: ESTIMATED GFR mL/min/1.73 sq m [facility] IS NOT ACCURATE [facility] CREATININE CLEARANCE IN PREDICTING GLOMERULAR FILTRATION RATE. ESTIMATED GFR IS NOT APPLICABLE FOR DIALYSIS PATIENTS. Specimen Blood - Central Venous Line Performing Organization Address City/State/Zipcode Phone Number [place] [phone] [place] [address] CENTER 2D Echo W/Doppler(CW/PW/Color) (11/09/2017 6:46 PM CDT) Ejection Fraction [facility] ECHO [facility] MKCKESSON [facility] Narrative Performed At Transthoracic Echocardiography Report (TTE) [facility] ECHO [facility] Demographics Patient NameSMITH, ALEESHIADate of Study11/09/2017 DIANA Gender Female Visit [id number] Race Black [id number] Number Date of 1980 Mary [facility] Physician Age 37 year(s) SonographerMantione Price RDCS Interpreting [facility] Ne[facility] to [facility] Pre PhysicianLisette Maldonado [...] Study 11/09/2017 DIANA Gender Female Visit Number [id number] Race Black Room Number [id number] Number Date of 1980 Referring Neal Lezama Physician Age 37 year(s) Diamond Polisher Lou Melhem RDCS Interpreting [facility] Needs to [...] Velocity: 2.91 m/s TR Gradient: 33.98 mmHg [facility] Organization Address City/State/Zipcode Phone Number [facility] ECHO HEART[facility] MKCKESSON CPACS XR chest 1 view portable / bedside (11/08/2017 7:20 PM CDT) Narrative Performed At FINAL REPORT [facility] EXAMINATION:AP PORTABLE CHEST RADIOGRAPH CLINICAL INDICATION: Pulmonary [...] MD Report Verified Date/Time:11/08/2017 20:41:24 Reading Location: [address] Reading Room Procedure Note Interface, External [...] Report Verified Date/Time: 11/08/2017 20:41:24 Reading Location: [address] Reading Room Performing Organization Address City/State/Zipcode Phone Number [facility] Sodium, random urine (11/08/2017 5:33 AM CDT) Sodium Urine 65 meq/L [facility] Specimen Urine - Urine, Voided Narrative Performed At [facility] Reference Range: No Normals Performing Organization Address [facility] Phone Number [address] [address] [place] Protein, random urine (11/08/2017 5:33 AM CDT) Protein, Urine 24 (H) 0 - 14 mg/dL [facility] Specimen Urine - Urine, Voided Performing Organization Address [facility] Phone Number [address] [address] [place] Creatinine, random urine (11/08/2017 5:33 AM CDT) Creatinine, Ur 46.0 mg/dL [facility] Specimen Urine - Urine, Voided Narrative Performed At [facility] Reference Range: No Normals Performing Organization Address [facility] Phone Number [address] [address] [phone] [place] Eosinophil smear (11/08/2017 5:33 AM CDT) Eosinophil Smear No EOS seen No EOS seen [facility] Specimen Urine - Urine, Voided Performing Organization Address [facility] Phone Number [address] [address] [place] [address] abdomen/pelvis without iv contrast (11/08/2017 3:01 [facility] Reading Room - [place] [id number] Procedure Note Interface, External Ris In [...] [facility] Reading Room - [place] [address] Performing Organization Address City/State/Zipcode Phone Number [employer] US abdomen complete (11/07/2017 7:27 PM CDT) Narrative Performed At FINAL REPORT [employer] Abdominal ultrasound Clinical History:Abdominal pain Discussion: Sonographic [...] MD Report Verified Date/Time:11/07/2017 19:58:17 Reading Location: [facility] C0[facility] Consult Reading Room Procedure Note Interface, External [...] Report Verified Date/Time: 11/07/2017 19:58:17 Reading Location: [facility] C0[facility] Consult Reading Room Performing Organization Address City/State/Zipcode Phone Number [facility] Lactic acid, venous, whole blood (11/07/2017 3:32 PM CDT) Lactate, Venous 0.9Comment: Specimen 0.5 - 2.2 mmol/L [facility] slightly hemolyzed [facility] Specimen Blood - Central Venous Line Narrative Performed At [facility] Effective 12/22/2015: Units/Reference Range Change New: 0.5-2.2 mmol/LPrevious: 5-20 mg/dL Performing Organization Address City/State/Zipcode Phone Number [facility] [address] [place] [address] CENTER after 09/14/2017 Insurance Payer Benefit Plan / Group Subscriber ID Type Phone Address [employer] - MEDICARE UNITED MEDICARE HMO xxxxxxxxx MGD CARE Advance Directives For more information, please contact:[address] [phone] Code Status Date Activated Date Inactivated Comments [...]
--- OUTSIDE RECORDS SUMMARY | 2018-09-15 16:21 | XMS REPORT | Continuity of Care Document ---
:1980 Author Organization Interface Problems Problem Status Onset Classification Date Comments Source Date Reported SICKLE CELL CRISIS Active 09/08/[address] Final: 09/13/2014 [facility] Aplastic anemia Resolved Problem 09/13/2014 [facility] CVA - Resolved Problem 09/13/2014 [facility] Cerebrovascular [facility] Sickle cell anemia Resolved Problem 09/13/2014 [facility] TIA Resolved Problem 09/13/2014 [facility] HB-SS DISEASE W Active [facility] Medications Medication Details Route Status Patient Ordering Order Source Instructions Provider Date 12 HR Oxymorphone 30 mg=1 tab, Active [facility] Hydrochloride 30 PO, Q12H, 0 2014 Medical MG Extended Refill(s) Center Release Tablet [Opana] Lovenox 40 mg, 0.4 mL, No Longer [facility] Route: SUB-Q, Active 2014 Medical Drug form: INJ, Center [id number], Dosing Weight 70.591, kg, Start date: 09/10/14 19:00:00, Duration: 30 day, Stop date: 10/09/14 19:00:00Notes: (Same as: Lovenox) Promethazine 12.5 mg, 0.5 No Longer [facility] mL, Route: Active 2014 Medical IVPB, Drug Center form: INJ, Q4H, Dosing Weight 70.591, kg, PRN Nausea & Vomiting, Start date: 09/10/14 17:52:00, Duration: 30 day, Stop date: 10/10/14 17:51:00Notes: Do not give IV push. (Same as: Phenergan) Hydromorphone 15 mg, 30 mL, No Longer [facility] Route: IV, Active 2014 Medical Initial Loading Center Dose: 0.4mg, RODEO PERFORMER Dose: 0.2 mg, RODEO PERFORMER Lockout: 10 minutes, Continuous Basal Rate: 0 mg, 4 Hour Limit (In MG): 3, Drug Form: INJ, Continuous, Start date: 09/10/14 11:00:00, Duration: 30 day, Stop date: 10/10/14 10:...Notes: (Same as: Dilaudid) conc=0.5 mg/ml Hydromorphone RODEO PERFORMER Dose: ;Delay: ;Basal: Naloxone 0.04 mg, 0.1 [...] Drug 2015 Medical MG/ML Topical form: CRM, [place] Cream [Benadryl] Start date: 09/09/14 3:43:00, Stop [...] Source type Reported morphine Assertion Drug Active [facility] Stadol Assertion Drug Active [facility] Toradol Assertion Drug Active [facility] traMADol Assertion Drug Active [facility] Zofran Assertion Drug Active [facility] Immunizations Immunization Date Given Site Status Last Updated Comments Source Results Order Name Results Value Reference Date Interpretation Comments Source Range CHEM PANEL LDH 507 unit/L 98 - 192 09/11 [facility] ELECTROLYTE AGAP 10.8 meq/L 10.0 - 09/11 [facility] S 20.0 [facility] ELECTROLYTE Calcium Lvl 8.4 mg/dL 8.5 - 10.5 09/11 [facility] ELECTROLYTE CO2 27 meq/L 24 - 32 09/11 [facility] ELECTROLYTE Chloride Lvl 108 meq/L 95 - 109 09/11 [facility] ELECTROLYTE eGFR 130 09/11 3Result Comment: The eGFR is calculated using the CKD-EPI formula. In most young, healthy individuals the eGFR will be > 90 mL/min/1.73m2. The eGFR declines with age. An eGFR of 60-89 may be normal in [facility] mL/min/1.73 some populations, particularly the elderly, for whom the CKD-EPI formula has not been extensively validated. Use of the eGFR is not recommended in the following populations: [place] [address] Center Individuals with unstable creatinine concentrations, including [...] BMI. ELECTROLYTE BUN 4 mg/dL - 09/11 [facility] ELECTROLYTE Glucose Lvl 82 mg/dL 70 - 99 09/11 6Interpretive Data: Adult reference range values reflect the clinical guidelines [facility] of the [place]. [facility] ELECTROLYTE Sodium Lvl 142 meq/L 135 - 145 09/11 [facility] ELECTROLYTE Creatinine 0.7 mg/dL 0.5 - 1.4 09/11 [facility] ELECTROLYTE Potassium 3.8 meq/L 3.5 - 5.1 09/11 [facility] HEMATOLOGY Retic Auto 16.5 % 0.5 - 1.5 09/11 [facility] HEMATOLOGY RDW 25.5 % 11.5 - 09/11 [facility] 14. [facility] HEMATOLOGY MPV 8.6 fL 7.4 - 10.4 09/11 [facility] HEMATOLOGY Platelet 213 K/CMM 133 - 450 09/11 [place] /2014 [facility] HEMATOLOGY Hct 19.8 % 36.0 - 09/11 [place] 48.0 /2014 [facility] HEMATOLOGY Hgb 6.7 g/dL 12.0 - 09/11 9Result [place] 16.0 /2014 Comment: [facility] Result(s) called to Lexi Hendrix at 09/11/2014 03:23 by ORDAZ. Read back OK. HEMATOLOGY MCV 97.9 fL 80.0 - 09/11 [place] 98.0 /2014 [facility] HEMATOLOGY MCHC 34.0 g/dL 32.0 - 09/11 [place] 36.0 /2014 [facility] HEMATOLOGY MCH 33.3 pg 27.0 - 09/11 [place] 31.0 /2014 [facility] HEMATOLOGY WBC X 10x3 14.1 K/CMM 3.7 - 10.4 09/11 /2014 [facility] HEMATOLOGY RBC X 10x6 2.02 M/CMM 4.20 - 09/11 [place] 5.40 /2014 [facility] BLOOD BANK Antibody Positive 1 09/10 1Result Comment: 09/10/2014 09:24 [id number] [facility] RESULTS Scrn "Significant Findings of Positive Antibody Screen called to Magan Stinson at 0920 by SI. Read Back OK" Medical (09/10/14 8:01 AM) [place] BLOOD BANK ABO/Rh O POS 09/10 [place] RESULTS [facility] BLOOD BANK Path MEGHAN This 09/10 [facility] RESULTS patient Medical a positive [place] Direct Antiglobuli n Test (MEGHAN) with IgG [...] and concur with the resident's interpretat ion.CPT: 19282-DI BLOOD BANK Path AB Current 09/10 [facility] RESULTS testing Medical shows the Center patient [...] and concur with the resident's interpretat ion.CPT: 30734-ZC BLOOD BANK HX Antigen Le(a) neg 09/10 RESULTS /2014 [facility] BLOOD BANK HX Antigen Jk(b) pos 09/10 RESULTS /2014 [facility] BLOOD BANK HX Antigen K neg 09/10 RESULTS /2014 [facility] BLOOD BANK HX Antigen Jk(a) pos 09/10 RESULTS /2014 [facility] BLOOD BANK HX Antigen Fy(b) neg 09/10 RESULTS /2014 Medical Center BLOOD BANK HX Antigen Fy(a) pos 09/10 [place] RESULTS /2014 [facility] BLOOD BANK HX Antigen C pos 09/10 [place] RESULTS /2014 [facility] BLOOD BANK HX Antigen E neg 09/10 [place] RESULTS /2014 [facility] BLOOD BANK HX Antigen Cw neg 09/10 [place] RESULTS /2014 [facility] BLOOD BANK HX Antigen M pos 09/10 [place] RESULTS /2014 [facility] BLOOD BANK HX Antigen s pos 09/10 [place] RESULTS /2014 [facility] BLOOD BANK HX Antigen c neg 09/10 [place] RESULTS /2014 [facility] BLOOD BANK HX Antigen N neg 09/10 [place] RESULTS /2014 [facility] BLOOD BANK HX Antigen P1 pos 09/10 [place] RESULTS /2014 [facility] BLOOD BANK HX Antigen S neg 09/10 [place] RESULTS /2014 [facility] BLOOD BANK HX Antigen Le(b) neg 09/10 [place] RESULTS /2014 [facility] BLOOD BANK HISTORICAL Anti-S 09/10 [place] RESULTS AB [facility] BLOOD BANK HISTORICAL Anti-Bg(a) 09/[address] [place] [address] [facility] BLOOD BANK HISTORICAL Anti-Cw 09/[address] [place] [address] [facility] BLOOD BANK C3 Int Negative 09/10 [place] RESULTS /2014 Medical (09/10/14 8:01 AM) Center BLOOD BANK [place] Int See Note 09/10 2Result Comment: 09/10/2014 12:56 TIMARTI2 [place] non reactive with all cells tested. [facility] BLOOD BANK MEGHAN Gel Int Positive 09/[address] [place] [address] [facility] (09/10/14 8:01 AM) Center BLOOD BANK AB Int Anti-E 09/10 [place] RESULTS [facility] BLOOD BANK AB Int Anti-c 09/10 [place] RESULTS /2014 [facility] HEMATOLOGY Hgb 6.3 g/dL 12.0 - 09/10 10Result [place] 16.0 2015 Comment: [facility] Critical Center Result(s) called to JB LONDONO at _09/10/2014 07:45 byMK_. Read back OK. CHEM PANEL LDH 496 unit/L 98 - 192 09/10 [place] /2014 [facility] ELECTROLYTE AGAP 11.8 meq/L 10.0 - 09/10 [place] S 20.0 /2015 [facility] ELECTROLYTE eGFR 137 09/10 4Result Comment: The eGFR is calculated using the CKD-EPI formula. In most young, healthy individuals the eGFR will be > 90 mL/min/1.73m2. The eGFR declines with age. An eGFR of 60-89 may be normal in [facility] mL/min/1.73 some populations, particularly the elderly, for [...] Lvl 8.3 mg/dL 8.5 - 10.5 09/10 [facility] ELECTROLYTE Chloride Lvl 113 meq/L 95 - 109 09/10 [facility] ELECTROLYTE Sodium Lvl 144 meq/L 135 - 145 09/10 [facility] ELECTROLYTE Glucose Lvl 81 mg/dL 70 - 99 09/10 7Interpretive Data: Adult reference range values reflect the clinical guidelines [facility] of the [place]. [facility] ELECTROLYTE BUN 4 mg/dL 7 - 22 09/10 [facility] ELECTROLYTE Creatinine 0.6 mg/dL 0.5 - 1.4 09/10 [facility] ELECTROLYTE CO2 23 meq/L 24 - 32 09/10 [facility] ELECTROLYTE Potassium 3.8 meq/L 3.5 - 5.1 09/10 [facility] HEMATOLOGY Hgb 6.2 g/dL 12.0 - 09/10 11Result [facility] 16.0 Comment: Medical Critical Center Result(s) called to mAy Fraga at 09/10/2014 06:07 by negrita. Read back OK. HEMATOLOGY WBC 15.9 K/CMM 3.7 - 10.4 09/10 [facility] HEMATOLOGY RBC 1.85 M/CMM 4.20 - 09/10 [facility] 5.40 /2014 [facility] HEMATOLOGY Hct 18.2 % 36.0 - 09/10 [facility] 48.0 [facility] HEMATOLOGY MCV 98.3 fL 80.0 - 09/10 [facility] 98.0 [facility] HEMATOLOGY RDW 25.4 % 11.5 - 09/10 [facility] 14.5 [facility] HEMATOLOGY Platelet 190 K/CMM 133 - 450 09/10 [facility] HEMATOLOGY MCH 33.6 pg 27.0 - 09/10 [facility] 31.0 [facility] HEMATOLOGY MCHC 34.2 g/dL 32.0 - 09/10 36.0 [facility] HEMATOLOGY MPV 8.5 fL 7.4 - 10.4 09/10 [facility] HEMATOLOGY Retic Auto 15.8 % 0.5 - 1.5 09/10 [facility] ELECTROLYTE AGAP 13.7 meq/L 10.0 - 09/09 [facility] S 20.0 [facility] ELECTROLYTE eGFR 96 09/09 5Result Comment: The eGFR is calculated using the CKD-EPI formula. In most young, healthy individuals the eGFR will be > 90 mL/min/1.73m2. The eGFR declines with age. An eGFR of 60-89 may be normal in [facility] mL/min/1.73 some populations, particularly the elderly, for whom the CKD-EPI formula has not been extensively validated. Use of the eGFR is not recommended in the following populations: [place] [address] Center Individuals with unstable creatinine concentrations, including [...] Lvl 9.1 mg/dL 8.5 - 10.5 09/09 [facility] ELECTROLYTE Potassium 3.7 meq/L 3.5 - 5.1 09/09 [facility] ELECTROLYTE Sodium Lvl 142 meq/L 135 - 145 09/09 [facility] ELECTROLYTE Glucose Lvl 106 mg/dL 70 - 99 09/09 8Interpretive Data: Adult reference range values reflect the clinical guidelines [facility] of the [place]. [facility] ELECTROLYTE Creatinine 0.9 mg/dL 0.5 - 1.4 09/09 [facility] ELECTROLYTE BUN 6 mg/dL 7 - 22 09/09 [facility]2015 [facility] ELECTROLYTE CO2 26 meq/L 24 - 32 09/09 [facility] S /2014 [facility] ELECTROLYTE Chloride Lvl 106 meq/L 95 - 109 09/09 [facility]2014 [facility] HEMATOLOGY Sickle Cell Slight 09/09 [facility]2014 [facility] HEMATOLOGY Schistocyte 1-3 per HPF None Seen 09/09 [facility] (09/09/14 2:13 AM) [place] HEMATOLOGY Tear Cell Slight 09/09 [facility]2014 [facility] HEMATOLOGY Target Cell Moderate None Seen 09/09 [facility]* [place] (09/09/14 2:13 AM) HEMATOLOGY Polychrom Slight 09/[address] HEMATOLOGY Plt Morph Normal 09/09 [facility] (09/09/14 2:13 AM) [place] HEMATOLOGY Tot Cell Ct 100 09/[address] HEMATOLOGY Bands 0.0 % 0.0 - 11.0 09/[address] HEMATOLOGY Segs 49.0 % 45.0 - 09/09 [facility] 75.0 [facility] HEMATOLOGY Macrocyte 1+ None Seen 09/09 [facility]* [place] (09/09/14 2:13 AM) HEMATOLOGY Anisocyte 1+ None Seen 09/09 [facility]* [place] (09/09/14 2:13 AM) HEMATOLOGY NRBC 2 /100WB 09/[address] HEMATOLOGY Atypical 0.0 % <=0.0 % 09/09 [facility] Lymph [facility] HEMATOLOGY Eosinophils 3.0 % 0.0 - 4.0 09/[address] HEMATOLOGY Monocytes 14.0 % 2.0 - 12.0 09/[address] HEMATOLOGY Lymphocytes 34.0 % 20.0 - 09/09 [facility] 40.0 [facility] HEMATOLOGY Eosinophils 0.6 K/CMM 0.0 - 0.5 09/09 [facility]2014 [facility] HEMATOLOGY Monocytes # 2.7 K/CMM 0.0 - 0.8 09/[address] HEMATOLOGY Lymphocytes 6.5 K/CMM 1.0 - 5.5 09/09 [facility] /[address] [place] [address] HEMATOLOGY Segs-Bands # 9.3 K/CMM 1.5 - 8.1 09/[address] HEMATOLOGY Retic Auto 16.6 % 0.5 - 1.5 09/09 [facility] HEMATOLOGY MPV 8.3 fL 7.4 - 10.4 09/09 [facility] HEMATOLOGY RDW 25.8 % 11.5 - 09/09 14.5 [facility] HEMATOLOGY MCHC 34.3 g/dL 32.0 - 09/09 [place] 36.0 [facility] HEMATOLOGY Platelet 220 K/CMM 133 - 450 09/09 [facility] HEMATOLOGY MCV 99.8 fL 80.0 - 09/09 98.0 /2014 [facility] HEMATOLOGY Hct 22.7 % 36.0 - 09/09 48.0 [facility] HEMATOLOGY MCH 34.2 pg 27.0 - 09/09 31.0 [facility] HEMATOLOGY WBC 19.0 K/CMM 3.7 - 10.4 09/09 [facility] HEMATOLOGY RBC 2.28 M/CMM 4.20 - 09/09 [facility] 5.40 /2014 [facility] Vital Signs Vital Sign Value Date Comments Source Respitory Rate 18 09/12/2014 [facility] Systolic (mm Hg) 120 09/12/2014 [facility] Heart Rate 80 09/12/2014 [facility] Diastolic (mm Hg) 80 09/12/2014 [facility] Temperature Oral (F) 98.0 F 09/12/2014 [facility] Diastolic (mm Hg) 82 09/11/2014 [facility] Respitory Rate 18 09/11/2014 [facility] Systolic (mm Hg) 132 09/11/2014 [facility] Heart Rate 82 09/11/2014 [facility] Temperature Oral (F) 98.4 F 09/11/2014 [facility] Respitory Rate 16 09/11/2014 [facility] Heart Rate 86 09/11/2014 [facility] Systolic (mm Hg) 120 09/11/2014 [facility] Diastolic (mm Hg) 86 09/11/2014 [facility] Temperature Oral (F) 98.1 F 09/11/2014 [facility] Weight 70.591 09/10/2014 [facility] Weight 68.182 09/09/2014 [facility] BMI Calculated 26.63 09/09/2014 [facility] Height 160.02 cm 09/09/2014 [facility] Weight 70 09/09/2014 [facility] Height 160.02 cm 09/09/2014 [facility] BMI Calculated 27.34 09/09/2014 [facility] Encounters Location Location Encounter Encounter Reason Attending ADM DC Status Source Details Type Number For Provider Date Date Visit [facility] [id number] Josiane 09/09 09/12 [facility] Roly Randhawaon /2014 [facility] Procedures Procedure Code Date Perfomer Comments Source
--- OUTSIDE RECORDS SUMMARY | 2018-09-15 16:25 | XMS REPORT ---
:1980 [facility] [address] [place] [address] Dr. Iraheta [address] [place] [id number] Care Team Providers Name Role Phone YANA [...] Comments WHITE BLOOD CELL COUNT (BEAKER) (test ngsf=687) 14.3 K/ L 3.5-10.5 RED BLOOD CELL COUNT (BEAKER) (test vbmh=342) 2.54 M/ L 3.93-5.22 HEMOGLOBIN (BEAKER) (test ctbd=398) 7.3 GM/DL 11.2-15.7 HEMATOCRIT (BEAKER) (test edug=018) 23.4 % 34.1-44.9 MEAN CORPUSCULAR VOLUME (BEAKER) (test exub=303) 92.1 fL 79.4-94.8 MEAN CORPUSCULAR HEMOGLOBIN (BEAKER) (test wjbn=382) 28.7 pg 25.6-32.2 MEAN CORPUSCULAR HEMOGLOBIN CONC (BEAKER) (test pxzx=751) 31.2 GM/DL 32.2- 35.5 RED CELL DISTRIBUTION WIDTH (BEAKER) (test dtog=533) 21.4 % 11.7-14.4 PLATELET COUNT (BEAKER) (test otev=828) 239 K/CU MM 150-450 MEAN PLATELET VOLUME (BEAKER) (test pbhr=818) 11.0 fL 9.4-12.3 NUCLEATED RED BLOOD CELLS (BEAKER) (test qyqt=516) 4 /100 WBC 0-0 (CELLAVISION MANUAL DIFF)2018-02-08 12:02:00 Test Item Value Reference Range Comments NEUTROPHILS - REL (CELLAVISION)(BEAKER) (test 66 % kqxd=3875) LYMPHOCYTES - REL (CELLAVISION)(BEAKER) (test 22 % krlk=6087) MONOCYTES - REL (CELLAVISION)(BEAKER) (test 8 % toer=5721) EOSINOPHILS - REL (CELLAVISION)(BEAKER) (test 3 % tryy=4680) NEUTROPHILS - ABS (CELLAVISION)(BEAKER) (test 9.44 K/ul 1.56-6.13 pygf=6291) LYMPHOCYTES - ABS (CELLAVISION)(BEAKER) (test 3.15 K/ul 1.18-3.74 zxam=5233) MONOCYTES - ABS (CELLAVISION)(BEAKER) (test 1.14 K/uL 0.24-0.36 cnxo=6155) EOSINOPHILS - ABS (CELLAVISION)(BEAKER) (test 0.43 K/uL 0.04-0.36 mawy=9795) TOTAL COUNTED (BEAKER) (test aotj=4735) 100 MANUAL NRBC PER 100 CELLS (BEAKER) (test 5 /100 WBC 0-0 bzxh=1694) WBC MORPHOLOGY (BEAKER) (test kjhd=869) Normal PLT MORPHOLOGY (BEAKER) (test jwlz=528) Normal ANISOCYTOSIS (BEAKER) (test qfkx=935) 2+ moderate MACROCYTES (BEAKER) (test lbyd=718) 1+ few TARGET CELLS (BEAKER) (test kksb=444) 1+ few SICKLE CELLS (BEAKER) (test emaq=691) 1+ few MATTHEWS-JOLLY BODIES (BEAKER) (test yesl=919) 1+ few ARTIFACT (CELLAVISION)(BEAKER) (test raew=6282) Present PLATELET CONCENTRATION (CELLAVISION)(BEAKER) Adequate (test qubz=6627) Received comment: User comments: Slide comments:BASIC METABOLIC [id number] 06:09:00 Test Item Value Reference Range Comments SODIUM (BEAKER) (test 138 meq/L 136-145 yghn=803) POTASSIUM (BEAKER) (test 5.9 meq/L 3.5-5.1 myjs=403) CHLORIDE (BEAKER) (test 102 meq/L 98-107 gdbk=272) CO2 (BEAKER) (test 30 meq/L 22-29 ijia=303) BLOOD UREA NITROGEN 15 mg/dL 7-21 (BEAKER) (test awto=259) CREATININE (BEAKER) (test 0.68 mg/dL 0.57-1.25 bwkf=103) GLUCOSE RANDOM (BEAKER) 87 mg/dL 70-105 (test xlmf=584) CALCIUM (BEAKER) (test 9.6 mg/dL 8.4-10.2 nojx=844) EGFR (BEAKER) (test 117 mL/min/1.73 sq m ESTIMATED GFR IS NOT ypkq=9011) ACCURATE CREATININE CLEARANCE IN PREDICTING GLOMERULAR FILTRATION RATE. ESTIMATED GFR IS NOT APPLICABLE FOR DIALYSIS PATIENTS. (CELLAVISION MANUAL DIFF)2018-02-07 13:34:00 Test Item Value Reference Range Comments NEUTROPHILS - REL (CELLAVISION)(BEAKER) (test 68 % zjgq=0109) LYMPHOCYTES - REL (CELLAVISION)(BEAKER) (test 24 % vkdh=5059) MONOCYTES - REL (CELLAVISION)(BEAKER) (test 7 % cfah=5338) EOSINOPHILS - REL (CELLAVISION)(BEAKER) (test 1 % rszu=8638) NEUTROPHILS - ABS (CELLAVISION)(BEAKER) (test 9.66 K/ul 1.56-6.13 ufdh=9444) LYMPHOCYTES - ABS (CELLAVISION)(BEAKER) (test 3.41 K/ul 1.18-3.74 ckiv=1398) MONOCYTES - ABS (CELLAVISION)(BEAKER) (test 0.99 K/uL 0.24-0.36 wlal=9020) EOSINOPHILS - ABS (CELLAVISION)(BEAKER) (test 0.14 K/uL 0.04-0.36 oigu=7585) TOTAL COUNTED (BEAKER) (test sdwc=3887) 100 MANUAL NRBC PER 100 CELLS (BEAKER) (test 15 /100 WBC 0-0 vnwh=2722) WBC MORPHOLOGY (BEAKER) (test jbay=045) Normal LARGE PLT(BEAKER) (test urlg=8214) Present POLYCHROMATOPHILLIC RBCS(BEAKER) (test mdpt=848) 2+ moderate HYPOCHROMIA (BEAKER) (test sugz=557) 1+ few TARGET CELLS (BEAKER) (test wxvg=915) 2+ moderate SICKLE CELLS (BEAKER) (test rtof=315) 1+ few MATTHEWS-JOLLY BODIES (BEAKER) (test phbn=020) 1+ few ARTIFACT (CELLAVISION)(BEAKER) (test cjwy=0764) Present PLATELET CONCENTRATION (CELLAVISION)(BEAKER) Adequate (test ziys=9524) Received comment: User comments: Slide comments:CBC W/PLT COUNT & AUTO [id number] 13:33:00 Test Item Value Reference Range Comments WHITE BLOOD CELL COUNT (BEAKER) (test kqsx=165) 14.2 K/ L 3.5-10.5 RED BLOOD CELL COUNT (BEAKER) (test lquk=220) 2.68 M/ L 3.93-5.22 HEMOGLOBIN (BEAKER) (test oabt=468) 7.7 GM/DL 11.2-15.7 HEMATOCRIT (BEAKER) (test tbwy=829) 24.5 % 34.1-44.9 MEAN CORPUSCULAR VOLUME (BEAKER) (test dpff=115) 91.4 fL 79.4-94.8 MEAN CORPUSCULAR HEMOGLOBIN (BEAKER) (test 28.7 pg 25.6-32.2 kwmt=561) MEAN CORPUSCULAR HEMOGLOBIN CONC (BEAKER) (test 31.4 GM/DL 32.2-35.5 vjcw=677) RED CELL DISTRIBUTION WIDTH (BEAKER) (test 21.2 % 11.7-14.4 uxud=955) PLATELET COUNT (BEAKER) (test wgpq=552) 257 K/CU MM 150-450 MEAN PLATELET VOLUME (BEAKER) (test hqjk=868) 11.4 fL 9.4-12.3 NUCLEATED RED BLOOD CELLS (BEAKER) (test 6 /100 WBC 0-0 gfyc=525) BASIC METABOLIC [id number] 07:19:00 Test Item Value Reference Range Comments SODIUM (BEAKER) (test 138 meq/L 136-145 zwcp=973) POTASSIUM (BEAKER) (test 5.3 meq/L 3.5-5.1 koqy=789) CHLORIDE (BEAKER) (test 98 meq/L 98-107 ttge=944) CO2 (BEAKER) (test 34 meq/L 22-29 dadp=623) BLOOD UREA NITROGEN 16 mg/dL 7-21 (BEAKER) (test abrw=802) CREATININE (BEAKER) (test 0.66 mg/dL 0.57-1.25 aztm=127) GLUCOSE RANDOM (BEAKER) 90 mg/dL 70-105 (test zffd=458) CALCIUM (BEAKER) (test 9.8 mg/dL 8.4-10.2 gkxy=886) EGFR (BEAKER) (test 121 mL/min/1.73 sq m ESTIMATED GFR IS NOT hxsu=2218) ACCURATE CREATININE CLEARANCE IN PREDICTING GLOMERULAR FILTRATION RATE. ESTIMATED GFR IS NOT APPLICABLE FOR DIALYSIS PATIENTS. CBC W/PLT COUNT & AUTO [id number] 14:36:00 Test Item Value Reference Range Comments WHITE BLOOD CELL COUNT (BEAKER) (test toub=242) 12.9 K/ L 3.5-10.5 RED BLOOD CELL COUNT (BEAKER) (test bfjx=841) 2.54 M/ L 3.93-5.22 HEMOGLOBIN (BEAKER) (test ifmd=037) 7.4 GM/DL 11.2-15.7 HEMATOCRIT (BEAKER) (test lytp=171) 22.9 % 34.1-44.9 MEAN CORPUSCULAR VOLUME (BEAKER) (test qbqz=476) 90.2 fL 79.4-94.8 MEAN CORPUSCULAR HEMOGLOBIN (BEAKER) (test 29.1 pg 25.6-32.2 wuje=889) MEAN CORPUSCULAR HEMOGLOBIN CONC (BEAKER) (test 32.3 GM/DL 32.2-35.5 wwgq=576) RED CELL DISTRIBUTION WIDTH (BEAKER) (test 21.2 % 11.7-14.4 dngn=178) PLATELET COUNT (BEAKER) (test cydj=324) 251 K/CU MM 150-450 MEAN PLATELET VOLUME (BEAKER) (test gglh=994) 10.8 fL 9.4-12.3 NUCLEATED RED BLOOD CELLS (BEAKER) (test 7 /100 WBC 0-0 bljx=582) (MANUAL DIFFERENTIAL)2018-02-06 14:36:00 Test Item Value Reference Range Comments NEUTROPHILS - REL (DIFF) (BEAKER) (test 64 % bdvd=3171) LYMPHOCYTES - REL (DIFF) (BEAKER) (test 22 % aepq=5726) MONOCYTES - REL (DIFF) (BEAKER) (test amht=9102) 8 % EOSINOPHILS - REL (DIFF) (BEAKER) (test 6 % ftiq=1341) BASOPHILS - REL (DIFF) (BEAKER) (test wjyy=9994) 0 % NEUTROPHILS - ABS (DIFF) (BEAKER) (test 8.26 K/ L 1.80-8.00 afct=8198) LYMPHOCYTES - ABS (DIFF) (BEAKER) (test 2.84 K/ L 1.48-4.50 wcrz=0947) MONOCYTES - ABS (DIFF) (BEAKER) (test ljgc=7947) 1.03 K/ L 0.00-1.30 EOSINOPHILS - ABS (DIFF) (BEAKER) (test 0.77 K/ L 0.00-0.50 lpmb=1366) BASOPHILS - ABS (DIFF) (BEAKER) (test yfam=8328) 0.00 K/ L 0.00-0.20 TOTAL COUNTED (BEAKER) (test fyhb=1248) 100 MANUAL NRBC PER 100 CELLS (BEAKER) (test 8 /100 WBC 0-0 qfun=1949) WBC MORPHOLOGY (BEAKER) (test txle=269) Normal PLT MORPHOLOGY (BEAKER) (test vfdk=896) Normal ANISOCYTOSIS (BEAKER) (test sjwk=440) 2+ moderate SICKLE CELLS (BEAKER) (test ffnn=372) 2+ moderate BASIC METABOLIC [id number] 06:59:00 Test Item Value Reference Range Comments SODIUM (BEAKER) (test 139 meq/L 136-145 vkzs=614) POTASSIUM (BEAKER) (test 4.9 meq/L 3.5-5.1 tsou=216) CHLORIDE (BEAKER) (test 100 meq/L 98-107 qekr=458) CO2 (BEAKER) (test 34 meq/L 22-29 kpgl=061) BLOOD UREA NITROGEN 18 mg/dL 7-21 (BEAKER) (test kpol=732) CREATININE (BEAKER) (test 0.70 mg/dL 0.57-1.25 rjeb=079) GLUCOSE RANDOM (BEAKER) 102 mg/dL 70-105 (test hias=972) CALCIUM (BEAKER) (test 9.8 mg/dL 8.4-10.2 qwmu=387) EGFR (BEAKER) (test 114 mL/min/1.73 sq m ESTIMATED GFR IS NOT wiiw=4076) ACCURATE CREATININE CLEARANCE IN PREDICTING GLOMERULAR FILTRATION RATE. ESTIMATED GFR IS NOT APPLICABLE FOR DIALYSIS PATIENTS. CBC W/PLT COUNT & AUTO [id number] 12:27:00 Test Item Value Reference Range Comments WHITE BLOOD CELL COUNT (BEAKER) (test wyrm=045) 14.2 K/ L 3.5-10.5 RED BLOOD CELL COUNT (BEAKER) (test erjp=106) 2.55 M/ L 3.93-5.22 HEMOGLOBIN (BEAKER) (test tiqg=368) 7.2 GM/DL 11.2-15.7 HEMATOCRIT (BEAKER) (test irbv=075) 22.9 % 34.1-44.9 MEAN CORPUSCULAR VOLUME (BEAKER) (test iqhb=355) 89.8 fL 79.4-94.8 MEAN CORPUSCULAR HEMOGLOBIN (BEAKER) (test 28.2 pg 25.6-32.2 zybj=979) MEAN CORPUSCULAR HEMOGLOBIN CONC (BEAKER) (test 31.4 GM/DL 32.2-35.5 kqbs=344) RED CELL DISTRIBUTION WIDTH (BEAKER) (test 20.7 % 11.7-14.4 gcmq=940) PLATELET COUNT (BEAKER) (test zolw=420) 261 K/CU MM 150-450 MEAN PLATELET VOLUME (BEAKER) (test cjwr=330) 10.7 fL 9.4-12.3 NUCLEATED RED BLOOD CELLS (BEAKER) (test 5 /100 WBC 0-0 ctze=229) (CELLAVISION MANUAL DIFF)2018-02-05 12:27:00 Test Item Value Reference Range Comments NEUTROPHILS - REL (CELLAVISION)(BEAKER) (test 67 % lceg=0330) LYMPHOCYTES - REL (CELLAVISION)(BEAKER) (test 17 % jrew=3464) MONOCYTES - REL (CELLAVISION)(BEAKER) (test 6 % eiaj=1236) EOSINOPHILS - REL (CELLAVISION)(BEAKER) (test 4 % nvtq=2276) PROMYELOCYTES - REL (CELLAVSION)(BEAKER) (test 5 % 0-0 ukrz=8528) ATYPICAL LYMPHOCYTES - REL (CELLAVISION)(BEAKER) 1 % 0-0 (test jjmz=0676) NEUTROPHILS - ABS (CELLAVISION)(BEAKER) (test 9.51 K/ul 1.56-6.13 tmpx=5197) LYMPHOCYTES - ABS (CELLAVISION)(BEAKER) (test 2.41 K/ul 1.18-3.74 kmva=3349) MONOCYTES - ABS (CELLAVISION)(BEAKER) (test 0.85 K/uL 0.24-0.36 awtw=6270) EOSINOPHILS - ABS (CELLAVISION)(BEAKER) (test 0.57 K/uL 0.04-0.36 vyqp=9184) PROMYELOCYTES - ABS (CELLAVISION)(BEAKER) (test 0.71 K/uL 0.00-0.00 fhhh=2131) ATYPICAL LYMPHOCYTES - ABS (CELLAVISION)(BEAKER) 0.14 K/uL 0.00-0.00 (test ffpb=3676) TOTAL COUNTED (BEAKER) (test mwhn=2405) 100 MANUAL NRBC PER 100 CELLS (BEAKER) (test 9 /100 WBC 0-0 lvax=5793) WBC MORPHOLOGY (BEAKER) (test yjws=605) Normal LARGE PLT(BEAKER) (test avlj=4010) Present POLYCHROMATOPHILLIC RBCS(BEAKER) (test wcjy=244) 2+ moderate HYPOCHROMIA (BEAKER) (test ynvv=576) 1+ few TARGET CELLS (BEAKER) (test tkwc=353) 2+ moderate SICKLE CELLS (BEAKER) (test gtma=110) 2+ moderate ARTIFACT (CELLAVISION)(BEAKER) (test amkb=0065) Present PLATELET CONCENTRATION (CELLAVISION)(BEAKER) Adequate (test gpek=4884) Received comment: User comments: Slide comments:BASIC METABOLIC [id number] 07:44:00 Test Item Value Reference Range Comments SODIUM (BEAKER) (test 139 meq/L 136-145 qzyd=144) POTASSIUM (BEAKER) (test 4.7 meq/L 3.5-5.1 ajot=231) CHLORIDE (BEAKER) (test 100 meq/L 98-107 ucwv=222) CO2 (BEAKER) (test 31 meq/L 22-29 hygb=355) BLOOD UREA NITROGEN 14 mg/dL 7-21 (BEAKER) (test ygdy=143) CREATININE (BEAKER) (test 0.69 mg/dL 0.57-1.25 hjtv=232) GLUCOSE RANDOM (BEAKER) 92 mg/dL 70-105 (test xybx=885) CALCIUM (BEAKER) (test 9.8 mg/dL 8.4-10.2 xhcn=013) EGFR (BEAKER) (test 115 mL/min/1.73 sq m ESTIMATED GFR IS NOT yyjr=5258) ACCURATE CREATININE CLEARANCE IN PREDICTING GLOMERULAR FILTRATION RATE. ESTIMATED GFR IS NOT APPLICABLE FOR DIALYSIS PATIENTS. CBC W/PLT COUNT & AUTO [id number] 13:29:00 Test Item Value Reference Range Comments WHITE BLOOD CELL COUNT (BEAKER) (test hued=278) 17.1 K/ L 3.5-10.5 RED BLOOD CELL COUNT (BEAKER) (test yklv=541) 2.68 M/ L 3.93-5.22 HEMOGLOBIN (BEAKER) (test vdbu=436) 7.6 GM/DL 11.2-15.7 HEMATOCRIT (BEAKER) (test xedb=777) 23.3 % 34.1-44.9 MEAN CORPUSCULAR VOLUME (BEAKER) (test kgjo=376) 86.9 fL 79.4-94.8 MEAN CORPUSCULAR HEMOGLOBIN (BEAKER) (test 28.4 pg 25.6-32.2 wnnb=702) MEAN CORPUSCULAR HEMOGLOBIN CONC (BEAKER) (test 32.6 GM/DL 32.2-35.5 yirx=479) RED CELL DISTRIBUTION WIDTH (BEAKER) (test 20.0 % 11.7-14.4 evcs=285) PLATELET COUNT (BEAKER) (test rzla=931) 252 K/CU MM 150-450 MEAN PLATELET VOLUME (BEAKER) (test lwmq=692) 10.9 fL 9.4-12.3 NUCLEATED RED BLOOD CELLS (BEAKER) (test 4 /100 WBC 0-0 kued=459) (CELLAVISION MANUAL DIFF)2018-02-04 13:29:00 Test Item Value Reference Range Comments NEUTROPHILS - REL (CELLAVISION)(BEAKER) (test 61 % drmu=5742) LYMPHOCYTES - REL (CELLAVISION)(BEAKER) (test 29 % duhw=5836) MONOCYTES - REL (CELLAVISION)(BEAKER) (test 7 % gfyw=9878) EOSINOPHILS - REL (CELLAVISION)(BEAKER) (test 1 % qvkr=8339) BANDS - REL (CELLAVISION)(BEAKER) (test 2 % 0-10 nzim=8486) NEUTROPHILS - ABS (CELLAVISION)(BEAKER) (test 10.43 K/ul 1.56-6.13 korm=2667) LYMPHOCYTES - ABS (CELLAVISION)(BEAKER) (test 4.96 K/ul 1.18-3.74 xikb=5272) MONOCYTES - ABS (CELLAVISION)(BEAKER) (test 1.20 K/uL 0.24-0.36 ekfm=9669) EOSINOPHILS - ABS (CELLAVISION)(BEAKER) (test 0.17 K/uL 0.04-0.36 nxqz=7417) BANDS - ABS (CELLAVISION)(BEAKER) (test 0.34 K/uL 0.00-0.80 gsbm=6832) TOTAL COUNTED (BEAKER) (test ysbw=2303) 100 MANUAL NRBC PER 100 CELLS (BEAKER) (test 3 /100 WBC 0-0 zymv=0091) SMUDGE CELLS (BEAKER) (test oicv=4317) Present GIANT PLATELETS (BEAKER) (test blle=592) Present POLYCHROMATOPHILLIC RBCS(BEAKER) (test vkbt=950) 3+ many ANISOCYTOSIS (BEAKER) (test vpwx=761) 2+ moderate MICROCYTES (BEAKER) (test mrai=356) 1+ few POIKILOCYTES (BEAKER) (test qpwv=826) 2+ moderate TARGET CELLS (BEAKER) (test iupd=191) 2+ moderate SICKLE CELLS (BEAKER) (test lczn=913) 2+ moderate ARTIFACT (CELLAVISION)(BEAKER) (test iasa=1133) Present HELMET CELLS (CELLAVISION)(BEAKER) (test 1+ few qvgo=7337) PLATELET CONCENTRATION (CELLAVISION)(BEAKER) Adequate (test iojs=9635) Received comment: User comments: Slide comments:BASIC METABOLIC [id number] 05:38:00 Test Item Value Reference Range Comments SODIUM (BEAKER) (test 140 meq/L 136-145 eksq=459) POTASSIUM (BEAKER) (test 4.6 meq/L 3.5-5.1 egap=158) CHLORIDE (BEAKER) (test 104 meq/L 98-107 wpyd=107) CO2 (BEAKER) (test 28 meq/L 22-29 doyy=744) BLOOD UREA NITROGEN 18 mg/dL 7-21 (BEAKER) (test xwlm=284) CREATININE (BEAKER) (test 0.66 mg/dL 0.57-1.25 bgka=178) GLUCOSE RANDOM (BEAKER) 100 mg/dL 70-105 (test cboo=108) CALCIUM (BEAKER) (test 9.5 mg/dL 8.4-10.2 oinc=854) EGFR (BEAKER) (test 121 mL/min/1.73 sq m ESTIMATED GFR IS NOT szhp=7201) ACCURATE CREATININE CLEARANCE IN PREDICTING GLOMERULAR FILTRATION RATE. ESTIMATED GFR IS NOT APPLICABLE FOR DIALYSIS PATIENTS. CBC W/PLT COUNT & AUTO [id number] 14:02:00 Test Item Value Reference Range Comments WHITE BLOOD CELL COUNT (BEAKER) (test szky=196) 20.8 K/ L 3.5-10.5 RED BLOOD CELL COUNT (BEAKER) (test cfqm=089) 1.97 M/ L 3.93-5.22 HEMOGLOBIN (BEAKER) (test ysfq=786) 5.9 GM/DL 11.2-15.7 HEMATOCRIT (BEAKER) (test qpox=149) 17.6 % 34.1-44.9 MEAN CORPUSCULAR VOLUME (BEAKER) (test exea=445) 89.3 fL 79.4-94.8 MEAN CORPUSCULAR HEMOGLOBIN (BEAKER) (test 29.9 pg 25.6-32.2 ihlx=421) MEAN CORPUSCULAR HEMOGLOBIN CONC (BEAKER) (test 33.5 GM/DL 32.2-35.5 gnce=409) RED CELL DISTRIBUTION WIDTH (BEAKER) (test 21.8 % 11.7-14.4 gddm=321) PLATELET COUNT (BEAKER) (test tetf=806) 290 K/CU MM 150-450 MEAN PLATELET VOLUME (BEAKER) (test oslx=161) 10.7 fL 9.4-12.3 NUCLEATED RED BLOOD CELLS (BEAKER) (test 5 /100 WBC 0-0 dzkk=583) NEUTROPHILS RELATIVE PERCENT (BEAKER) (test 66 % xygw=631) LYMPHOCYTES RELATIVE PERCENT (BEAKER) (test 23 % mumz=109) MONOCYTES RELATIVE PERCENT (BEAKER) (test 10 % qaxs=020) EOSINOPHILS RELATIVE PERCENT (BEAKER) (test 1 % zvdi=333) BASOPHILS RELATIVE PERCENT (BEAKER) (test 0 % oaly=745) NEUTROPHILS ABSOLUTE COUNT (BEAKER) (test 13.73 K/ L 1.56-6.13 xigp=829) LYMPHOCYTES ABSOLUTE COUNT (BEAKER) (test 4.72 K/ L 1.18-3.74 kwrg=405) MONOCYTES ABSOLUTE COUNT (BEAKER) (test 2.06 K/ L 0.24-0.36 ghfx=821) EOSINOPHILS ABSOLUTE COUNT (BEAKER) (test 0.20 K/ L 0.04-0.36 ctjr=064) BASOPHILS ABSOLUTE COUNT (BEAKER) (test 0.03 K/ L 0.01-0.08 klss=390) IMMATURE GRANULOCYTES-RELATIVE PERCENT (BEAKER) 1 % 0-1 (test jfuo=5540) (CELLAVISION MANUAL DIFF)2018-02-03 14:02:00 Test Item Value Reference Range Comments TOTAL COUNTED (BEAKER) (test zhgg=0202) WBC MORPHOLOGY (BEAKER) (test smqg=530) Normal PLT MORPHOLOGY (BEAKER) (test vquy=885) Normal POLYCHROMATOPHILLIC RBCS(BEAKER) (test haxp=012) 2+ moderate ANISOCYTOSIS (BEAKER) (test vlip=898) 2+ moderate TARGET CELLS (BEAKER) (test rfqm=332) 2+ moderate SICKLE CELLS (BEAKER) (test mmno=039) 2+ moderate BASIC METABOLIC [id number] 07:22:00 Test Item Value Reference Range Comments SODIUM (BEAKER) (test 140 meq/L 136-145 sgpa=661) POTASSIUM (BEAKER) (test 4.9 meq/L 3.5-5.1 gamn=557) CHLORIDE (BEAKER) (test 105 meq/L 98-107 haqb=768) CO2 (BEAKER) (test 29 meq/L 22-29 qmiu=287) BLOOD UREA NITROGEN 20 mg/dL 7-21 (BEAKER) (test vfnj=308) CREATININE (BEAKER) (test 0.72 mg/dL 0.57-1.25 ifix=092) GLUCOSE RANDOM (BEAKER) 100 mg/dL 70-105 (test ihtm=766) CALCIUM (BEAKER) (test 9.4 mg/dL 8.4-10.2 szod=655) EGFR (BEAKER) (test 110 mL/min/1.73 sq m ESTIMATED GFR IS NOT dnmd=5200) ACCURATE CREATININE CLEARANCE IN PREDICTING GLOMERULAR FILTRATION RATE. ESTIMATED GFR IS NOT APPLICABLE FOR DIALYSIS PATIENTS. Specimen slightly ictericCBC W/PLT COUNT & AUTO [id number] 06:46 :00 Test Item Value Reference Range Comments WHITE BLOOD CELL COUNT (BEAKER) (test qyja=505) 17.0 K/ L 3.5-10.5 RED BLOOD CELL COUNT (BEAKER) (test fgna=578) 2.18 M/ L 3.93-5.22 HEMOGLOBIN (BEAKER) (test dgnf=898) 6.4 GM/DL 11.2-15.7 HEMATOCRIT (BEAKER) (test rato=687) 20.3 % 34.1-44.9 MEAN CORPUSCULAR VOLUME (BEAKER) (test rrxp=668) 93.1 fL 79.4-94.8 MEAN CORPUSCULAR HEMOGLOBIN (BEAKER) (test 29.4 pg 25.6-32.2 ryqy=300) MEAN CORPUSCULAR HEMOGLOBIN CONC (BEAKER) (test 31.5 GM/DL 32.2-35.5 hyad=297) RED CELL DISTRIBUTION WIDTH (BEAKER) (test 24.0 % 11.7-14.4 kpdx=354) PLATELET COUNT (BEAKER) (test muqm=578) 274 K/CU MM 150-450 MEAN PLATELET VOLUME (BEAKER) (test jper=022) 10.9 fL 9.4-12.3 NUCLEATED RED BLOOD CELLS (BEAKER) (test 13 /100 WBC 0-0 vgvv=808) (CELLAVISION MANUAL DIFF)2018-02-02 06:46:00 Test Item Value Reference Range Comments NEUTROPHILS - REL (CELLAVISION)(BEAKER) (test 72 % soci=7222) LYMPHOCYTES - REL (CELLAVISION)(BEAKER) (test 20 % wrmp=6774) MONOCYTES - REL (CELLAVISION)(BEAKER) (test 6 % nwhy=8005) EOSINOPHILS - REL (CELLAVISION)(BEAKER) (test 1 % brof=3513) BANDS - REL (CELLAVISION)(BEAKER) (test 1 % 0-10 njnt=9709) NEUTROPHILS - ABS (CELLAVISION)(BEAKER) (test 12.24 K/ul 1.56-6.13 qlzr=8345) LYMPHOCYTES - ABS (CELLAVISION)(BEAKER) (test 3.40 K/ul 1.18-3.74 pecm=8714) MONOCYTES - ABS (CELLAVISION)(BEAKER) (test 1.02 K/uL 0.24-0.36 lyep=3652) EOSINOPHILS - ABS (CELLAVISION)(BEAKER) (test 0.17 K/uL 0.04-0.36 nqux=8902) BANDS - ABS (CELLAVISION)(BEAKER) (test 0.17 K/uL 0.00-0.80 vsfz=0113) TOTAL COUNTED (BEAKER) (test afqr=4685) 100 MANUAL NRBC PER 100 CELLS (BEAKER) (test 30 /100 WBC 0-0 pmds=1818) WBC MORPHOLOGY (BEAKER) (test pxiw=422) Normal PLT MORPHOLOGY (BEAKER) (test zamc=792) Normal POLYCHROMATOPHILLIC RBCS(BEAKER) (test cnvg=110) 3+ many ANISOCYTOSIS (BEAKER) (test jbre=194) 2+ moderate MACROCYTES (BEAKER) (test besz=517) 2+ moderate TARGET CELLS (BEAKER) (test gmgq=446) 1+ few SICKLE CELLS (BEAKER) (test sfkb=452) 1+ few ARTIFACT (CELLAVISION)(BEAKER) (test uzdd=2139) Present PLATELET CONCENTRATION (CELLAVISION)(BEAKER) Adequate (test gome=9280) Received comment: User comments: Slide comments:BASIC METABOLIC [id number] 06:15:00 Test Item Value Reference Range Comments SODIUM (BEAKER) (test 139 meq/L 136-145 jkah=108) POTASSIUM (BEAKER) (test 4.7 meq/L 3.5-5.1 jzop=535) CHLORIDE (BEAKER) (test 105 meq/L 98-107 dxee=343) CO2 (BEAKER) (test 26 meq/L 22-29 zklo=472) BLOOD UREA NITROGEN 10 mg/dL 7-21 (BEAKER) (test usql=672) CREATININE (BEAKER) (test 0.67 mg/dL 0.57-1.25 pwpf=669) GLUCOSE RANDOM (BEAKER) 91 mg/dL 70-105 (test ksge=187) CALCIUM (BEAKER) (test 9.3 mg/dL 8.4-10.2 imth=259) EGFR (BEAKER) (test 119 mL/min/1.73 sq m ESTIMATED GFR IS NOT qfsl=3659) ACCURATE CREATININE CLEARANCE IN PREDICTING GLOMERULAR FILTRATION RATE. ESTIMATED GFR IS NOT APPLICABLE FOR DIALYSIS PATIENTS. URINALYSIS W/ [id number] 20:17:00 Test Item Value Reference Range Comments COLOR (BEAKER) (test hmiw=964) Yellow CLARITY (BEAKER) (test uusg=160) Hazy SPECIFIC GRAVITY UA (BEAKER) (test ioon=118) 1.009 1.001-1.035 PH UA (BEAKER) (test mkkp=837) 5.5 5.0-8.0 PROTEIN UA (BEAKER) (test otfc=540) 20 mg/dL Negative GLUCOSE UA (BEAKER) (test scut=710) Negative Negative KETONES UA (BEAKER) (test herk=286) Negative Negative BILIRUBIN UA (BEAKER) (test lotk=946) Negative Negative BLOOD UA (BEAKER) (test mayd=116) Small Negative NITRITE UA (BEAKER) (test nyhm=644) Negative Negative LEUKOCYTE ESTERASE UA (BEAKER) (test pdth=298) Small Negative UROBILINOGEN UA (BEAKER) (test xlpy=919) 0.2 mg/dL 0.2-1.0 RBC UA (BEAKER) (test kwli=482) 1 /HPF WBC UA (BEAKER) (test rxle=816) 4 /HPF BACTERIA (BEAKER) (test mfzc=549) Few MUCUS (BEAKER) (test kdjf=0526) Occasional SQUAMOUS EPITHELIAL (BEAKER) (test xvvw=158) 8 /HPF SOURCE(BEAKER) (test ixin=6682) Urine, Voided CBC W/PLT COUNT & AUTO [id number] 11:18:00 Test Item Value Reference Range Comments WHITE BLOOD CELL COUNT (BEAKER) (test yatd=342) 16.9 K/ L 3.5-10.5 RED BLOOD CELL COUNT (BEAKER) (test nqjk=017) 2.15 M/ L 3.93-5.22 HEMOGLOBIN (BEAKER) (test ehjz=005) 6.5 GM/DL 11.2-15.7 HEMATOCRIT (BEAKER) (test ykcj=791) 20.6 % 34.1-44.9 MEAN CORPUSCULAR VOLUME (BEAKER) (test xmbp=403) 95.8 fL 79.4-94.8 MEAN CORPUSCULAR HEMOGLOBIN (BEAKER) (test 30.2 pg 25.6-32.2 nuvf=346) MEAN CORPUSCULAR HEMOGLOBIN CONC (BEAKER) (test 31.6 GM/DL 32.2-35.5 kswv=150) RED CELL DISTRIBUTION WIDTH (BEAKER) (test 25.6 % 11.7-14.4 lfhx=074) PLATELET COUNT (BEAKER) (test yktf=314) 280 K/CU MM 150-450 MEAN PLATELET VOLUME (BEAKER) (test jpmo=522) 10.7 fL 9.4-12.3 NUCLEATED RED BLOOD CELLS (BEAKER) (test 27 /100 WBC 0-0 nzum=679) (CELLAVISION MANUAL DIFF)2018-02-01 11:18:00 Test Item Value Reference Range Comments NEUTROPHILS - REL (CELLAVISION)(BEAKER) (test 61 % hvcw=4085) LYMPHOCYTES - REL (CELLAVISION)(BEAKER) (test 27 % bqwp=5592) MONOCYTES - REL (CELLAVISION)(BEAKER) (test 8 % mkdj=0943) EOSINOPHILS - REL (CELLAVISION)(BEAKER) (test 4 % yutd=6047) NEUTROPHILS - ABS (CELLAVISION)(BEAKER) (test 10.31 K/ul 1.56-6.13 ypcy=3831) LYMPHOCYTES - ABS (CELLAVISION)(BEAKER) (test 4.56 K/ul 1.18-3.74 eerf=5492) MONOCYTES - ABS (CELLAVISION)(BEAKER) (test 1.35 K/uL 0.24-0.36 omld=8466) EOSINOPHILS - ABS (CELLAVISION)(BEAKER) (test 0.68 K/uL 0.04-0.36 tfaf=3483) TOTAL COUNTED (BEAKER) (test niul=2324) 100 MANUAL NRBC PER 100 CELLS (BEAKER) (test 28 /100 WBC 0-0 arcg=9577) WBC MORPHOLOGY (BEAKER) (test gqnz=576) Normal PLT MORPHOLOGY (BEAKER) (test sdoo=697) Normal POLYCHROMATOPHILLIC RBCS(BEAKER) (test rlng=673) 2+ moderate ANISOCYTOSIS (BEAKER) (test dkdc=068) 2+ moderate TARGET CELLS (BEAKER) (test azay=088) 2+ moderate SICKLE CELLS (BEAKER) (test bins=006) 1+ few ARTIFACT (CELLAVISION)(BEAKER) (test jgqt=9569) Present PLATELET CONCENTRATION (CELLAVISION)(BEAKER) Adequate (test xvsf=6690) Received comment: User comments: Slide comments:BASIC METABOLIC [id number] 06:15:00 Test Item Value Reference Range Comments SODIUM (BEAKER) (test 141 meq/L 136-145 yjla=471) POTASSIUM (BEAKER) (test 4.2 meq/L 3.5-5.1 iffr=375) CHLORIDE (BEAKER) (test 108 meq/L 98-107 lumb=797) CO2 (BEAKER) (test 25 meq/L 22-29 jmpl=178) BLOOD UREA NITROGEN 11 mg/dL 7-21 (BEAKER) (test dovh=772) CREATININE (BEAKER) (test 0.73 mg/dL 0.57-1.25 cgbu=625) GLUCOSE RANDOM (BEAKER) 93 mg/dL 70-105 (test ebmn=566) CALCIUM (BEAKER) (test 9.2 mg/dL 8.4-10.2 ussn=772) EGFR (BEAKER) (test 108 mL/min/1.73 sq m ESTIMATED GFR IS NOT sljh=9239) ACCURATE CREATININE CLEARANCE IN PREDICTING GLOMERULAR FILTRATION RATE. ESTIMATED GFR IS NOT APPLICABLE FOR DIALYSIS PATIENTS. CBC W/PLT COUNT & AUTO [id number] 15:02:00 Test Item Value Reference Range Comments WHITE BLOOD CELL COUNT (BEAKER) (test ujyo=167) 18.0 K/ L 3.5-10.5 RED BLOOD CELL COUNT (BEAKER) (test dxdf=754) 2.31 M/ L 3.93-5.22 HEMOGLOBIN (BEAKER) (test tqyt=063) 7.0 GM/DL 11.2-15.7 HEMATOCRIT (BEAKER) (test sasd=328) 22.4 % 34.1-44.9 MEAN CORPUSCULAR VOLUME (BEAKER) (test nstp=936) 97.0 fL 79.4-94.8 MEAN CORPUSCULAR HEMOGLOBIN (BEAKER) (test 30.3 pg 25.6-32.2 biqa=135) MEAN CORPUSCULAR HEMOGLOBIN CONC (BEAKER) (test 31.3 GM/DL 32.2-35.5 rmcd=701) RED CELL DISTRIBUTION WIDTH (BEAKER) (test 27.9 % 11.7-14.4 mkqp=345) PLATELET COUNT (BEAKER) (test ddnr=580) 337 K/CU MM 150-450 MEAN PLATELET VOLUME (BEAKER) (test oeoa=748) 10.2 fL 9.4-12.3 NUCLEATED RED BLOOD CELLS (BEAKER) (test 63 /100 WBC 0-0 igmp=948) NEUTROPHILS RELATIVE PERCENT (BEAKER) (test 45 % lhfa=951) LYMPHOCYTES RELATIVE PERCENT (BEAKER) (test 35 % liti=489) MONOCYTES RELATIVE PERCENT (BEAKER) (test 16 % jzbq=997) EOSINOPHILS RELATIVE PERCENT (BEAKER) (test 2 % chko=582) BASOPHILS RELATIVE PERCENT (BEAKER) (test 0 % vfif=618) NEUTROPHILS ABSOLUTE COUNT (BEAKER) (test 8.10 K/ L 1.56-6.13 bpzk=629) LYMPHOCYTES ABSOLUTE COUNT (BEAKER) (test 6.24 K/ L 1.18-3.74 gchd=470) MONOCYTES ABSOLUTE COUNT (BEAKER) (test 2.96 K/ L 0.24-0.36 pijy=285) EOSINOPHILS ABSOLUTE COUNT (BEAKER) (test 0.38 K/ L 0.04-0.36 iycm=585) BASOPHILS ABSOLUTE COUNT (BEAKER) (test 0.06 K/ L 0.01-0.08 trhu=092) IMMATURE GRANULOCYTES-RELATIVE PERCENT (BEAKER) 2 % 0-1 (test jkzz=1103) (CELLAVISION MANUAL DIFF)2018-01-30 15:02:00 Test Item Value Reference Range Comments TOTAL COUNTED (BEAKER) (test zycn=2663) WBC MORPHOLOGY (BEAKER) (test yxbu=157) Normal PLT MORPHOLOGY (BEAKER) (test hiil=051) Normal POLYCHROMATOPHILLIC RBCS(BEAKER) (test xtep=581) 2+ moderate ANISOCYTOSIS (BEAKER) (test lbca=545) 2+ moderate TARGET CELLS (BEAKER) (test ytgr=278) 2+ moderate SICKLE CELLS (BEAKER) (test eslp=909) 1+ few BASIC METABOLIC [id number] 09:27:00 Test Item Value Reference Range Comments SODIUM (BEAKER) (test 141 meq/L 136-145 sfff=215) POTASSIUM (BEAKER) (test 4.0 meq/L 3.5-5.1 rpkh=318) CHLORIDE (BEAKER) (test 108 meq/L 98-107 rtij=607) CO2 (BEAKER) (test 24 meq/L 22-29 zzxa=813) BLOOD UREA NITROGEN 12 mg/dL 7-21 (BEAKER) (test tiji=849) CREATININE (BEAKER) (test 0.80 mg/dL 0.57-1.25 djbo=403) GLUCOSE RANDOM (BEAKER) 95 mg/dL 70-105 (test iirn=143) CALCIUM (BEAKER) (test 9.5 mg/dL 8.4-10.2 fpoq=993) EGFR (BEAKER) (test 97 mL/min/1.73 sq m ESTIMATED GFR IS NOT rqai=3123) ACCURATE CREATININE CLEARANCE IN PREDICTING GLOMERULAR FILTRATION RATE. ESTIMATED GFR IS NOT APPLICABLE FOR DIALYSIS PATIENTS. [id number] 17:59:00 Test Item Value Reference Range Comments FERRITIN (BEAKER) (test isgl=129) 66158 ng/mL 5-275 CBC W/PLT COUNT & AUTO [id number] 17:20:00 Test Item Value Reference Range Comments WHITE BLOOD CELL COUNT (BEAKER) (test ocad=862) 19.9 K/ L 3.5-10.5 RED BLOOD CELL COUNT (BEAKER) (test todr=272) 1.53 M/ L 3.93-5.22 HEMOGLOBIN (BEAKER) (test jnxr=964) 5.0 GM/DL 11.2-15.7 HEMATOCRIT (BEAKER) (test zmov=303) 16.0 % 34.1-44.9 MEAN CORPUSCULAR VOLUME (BEAKER) (test posh=732) 104.6 fL 79.4-94.8 MEAN CORPUSCULAR HEMOGLOBIN (BEAKER) (test 32.7 pg 25.6-32.2 gdvh=225) MEAN CORPUSCULAR HEMOGLOBIN CONC (BEAKER) (test 31.3 GM/DL 32.2-35.5 ahkk=236) RED CELL DISTRIBUTION WIDTH (BEAKER) (test 33.7 % 11.7-14.4 dani=959) PLATELET COUNT (BEAKER) (test uoki=261) 364 K/CU MM 150-450 MEAN PLATELET VOLUME (BEAKER) (test wzlp=553) 10.4 fL 9.4-12.3 NUCLEATED RED BLOOD CELLS (BEAKER) (test 62 /100 WBC 0-0 aufy=118) RETICULOCYTE [id number] 17:20:00 Test Item Value Reference Range Comments RETICULOCYTE COUNT PCT (BEAKER) (test jzsa=495) > % 0.5-1.7 (CELLAVISION MANUAL DIFF)2018-01-29 17:20:00 Test Item Value Reference Range Comments TOTAL COUNTED (BEAKER) (test mbom=2262) RBC MORPHOLOGY (BEAKER) (test bdiz=973) Normal WBC MORPHOLOGY (BEAKER) (test tffj=803) Normal PLT MORPHOLOGY (BEAKER) (test lmac=725) Normal LACTATE DEHYDROGENASE (LDH)2018-01-29 17:04:00 Test Item Value Reference Range Comments LACTATE DEHYDROGENASE (BEAKER) (test trdt=617) 989 U/L 125-220 BASIC METABOLIC [id number] 17:04:00 Test Item Value Reference Range Comments SODIUM (BEAKER) (test 138 meq/L 136-145 lhbr=753) POTASSIUM (BEAKER) (test 4.2 meq/L 3.5-5.1 innb=704) CHLORIDE (BEAKER) (test 109 meq/L 98-107 sepr=324) CO2 (BEAKER) (test 22 meq/L 22-29 jclz=635) BLOOD UREA NITROGEN 11 mg/dL 7-21 (BEAKER) (test kzpi=539) CREATININE (BEAKER) (test 0.76 mg/dL 0.57-1.25 ndva=745) GLUCOSE RANDOM (BEAKER) 104 mg/dL 70-105 (test xxaw=721) CALCIUM (BEAKER) (test 9.5 mg/dL 8.4-10.2 rpes=524) EGFR (BEAKER) (test 103 mL/min/1.73 sq m ESTIMATED GFR IS NOT kwun=0507) ACCURATE CREATININE CLEARANCE IN PREDICTING GLOMERULAR FILTRATION RATE. ESTIMATED GFR IS NOT APPLICABLE FOR DIALYSIS PATIENTS. ANTI-MITOCHONDRIAL AB, REFLEX TO [id number] 11:03:00 Test Item Value Reference Range Comments SCAN RESULT (test ujre=[id number]) CALCIUM, [id number] 07:05:00 Test Item Value Reference Range Comments CALCIUM IONIZED (BEAKER) (test fpwr=313) 1.10 mmol/L 1.12-1.27 PH, BLOOD (BEAKER) (test voww=2360) 7.30 [id number] 06:22:00 Test Item Value Reference Range Comments PHOSPHORUS (BEAKER) (test qusg=313) 4.7 mg/dL 2.3-4.7 [id number] 06:22:00 Test Item Value Reference Range Comments MAGNESIUM (BEAKER) (test afor=827) 1.4 mg/dL 1.6-2.6 BASIC METABOLIC [id number] 06:22:00 Test Item Value Reference Range Comments SODIUM (BEAKER) (test 135 meq/L 136-145 fhiz=262) POTASSIUM (BEAKER) (test 4.5 meq/L 3.5-5.1 ksmc=373) CHLORIDE (BEAKER) (test 100 meq/L 98-107 jeat=093) CO2 (BEAKER) (test 29 meq/L 22-29 wrco=753) BLOOD UREA NITROGEN 19 mg/dL 7-21 (BEAKER) (test bdjp=942) CREATININE (BEAKER) (test 0.76 mg/dL 0.57-1.25 gfvl=988) GLUCOSE RANDOM (BEAKER) 104 mg/dL 70-105 (test byep=481) CALCIUM (BEAKER) (test 9.3 mg/dL 8.4-10.2 vsqs=935) EGFR (BEAKER) (test 103 mL/min/1.73 sq m ESTIMATED GFR IS NOT kiei=8408) ACCURATE CREATININE CLEARANCE IN PREDICTING GLOMERULAR FILTRATION RATE. ESTIMATED GFR IS NOT APPLICABLE FOR DIALYSIS PATIENTS. CREATINE KINASE (CK)2017-11-24 08:12:00 Test Item Value Reference Range Comments CREATINE KINASE TOTAL (BEAKER) (test cxya=114) 8 U/L 29-200 URIC [id number] 08:01:00 Test Item Value Reference Range Comments URIC ACID (BEAKER) (test frbs=716) 4.8 mg/dL 2.6-7.2 [id number] 08:01:00 Test Item Value Reference Range Comments MAGNESIUM (BEAKER) (test ooyk=186) 1.5 mg/dL 1.6-2.6 [id number] 08:01:00 Test Item Value Reference Range Comments PHOSPHORUS (BEAKER) (test iyqk=839) 5.3 mg/dL 2.3-4.7 BASIC METABOLIC [id number] 08:01:00 Test Item Value Reference Range Comments SODIUM (BEAKER) (test 138 meq/L 136-145 ynud=781) POTASSIUM (BEAKER) (test 4.9 meq/L 3.5-5.1 vlnp=727) CHLORIDE (BEAKER) (test 100 meq/L 98-107 dcyq=465) CO2 (BEAKER) (test 28 meq/L 22-29 uzpv=052) BLOOD UREA NITROGEN 22 mg/dL 7-21 (BEAKER) (test sfjm=275) CREATININE (BEAKER) (test 0.80 mg/dL 0.57-1.25 vkaa=351) GLUCOSE RANDOM (BEAKER) 102 mg/dL 70-105 (test phgh=380) CALCIUM (BEAKER) (test 9.3 mg/dL 8.4-10.2 geri=442) EGFR (BEAKER) (test 97 mL/min/1.73 sq m ESTIMATED GFR IS NOT haaf=7485) ACCURATE CREATININE CLEARANCE IN PREDICTING GLOMERULAR FILTRATION RATE. ESTIMATED GFR IS NOT APPLICABLE FOR DIALYSIS PATIENTS. LACTATE DEHYDROGENASE (LDH)2017-11-24 08:01:00 Test Item Value Reference Range Comments LACTATE DEHYDROGENASE (BEAKER) (test obsg=004) 489 U/L 125-220 [id number] 18:07:00 Test Item Value Reference Range Comments POTASSIUM (BEAKER) (test ozno=897) 5.5 meq/L 3.5-5.1 Call if K > 5.4 to renal 713 790 1032CALCIUM, [id number] 06:51:00 Test Item Value Reference Range Comments CALCIUM IONIZED (BEAKER) (test wgmx=859) 1.08 mmol/L 1.12-1.27 PH, BLOOD (BEAKER) (test alwb=0336) 7.35 CBC W/PLT COUNT & AUTO [id number] 06:25:00 Test Item Value Reference Range Comments WHITE BLOOD CELL COUNT (BEAKER) (test nyvo=121) 18.3 K/ L 3.5-10.5 RED BLOOD CELL COUNT (BEAKER) (test dzzs=590) 2.30 M/ L 3.93-5.22 HEMOGLOBIN (BEAKER) (test sodi=631) 6.5 GM/DL 11.2-15.7 HEMATOCRIT (BEAKER) (test cywd=189) 21.1 % 34.1-44.9 MEAN CORPUSCULAR VOLUME (BEAKER) (test zzjq=517) 91.7 fL 79.4-94.8 MEAN CORPUSCULAR HEMOGLOBIN (BEAKER) (test 28.3 pg 25.6-32.2 xwfz=839) MEAN CORPUSCULAR HEMOGLOBIN CONC (BEAKER) (test 30.8 GM/DL 32.2-35.5 bxvn=262) RED CELL DISTRIBUTION WIDTH (BEAKER) (test 21.2 % 11.7-14.4 qxkb=293) PLATELET COUNT (BEAKER) (test tpxl=256) 414 K/CU MM 150-450 MEAN PLATELET VOLUME (BEAKER) (test cere=181) 11.5 fL 9.4-12.3 NUCLEATED RED BLOOD CELLS (BEAKER) (test 0 /100 WBC 0-0 ypma=465) NEUTROPHILS RELATIVE PERCENT (BEAKER) (test 53 % wrci=961) LYMPHOCYTES RELATIVE PERCENT (BEAKER) (test 25 % jujq=046) MONOCYTES RELATIVE PERCENT (BEAKER) (test 19 % gybm=416) EOSINOPHILS RELATIVE PERCENT (BEAKER) (test 2 % bbpc=871) BASOPHILS RELATIVE PERCENT (BEAKER) (test 0 % cxpi=298) NEUTROPHILS ABSOLUTE COUNT (BEAKER) (test 9.74 K/ L 1.56-6.13 ocdy=892) LYMPHOCYTES ABSOLUTE COUNT (BEAKER) (test 4.57 K/ L 1.18-3.74 ajqk=028) MONOCYTES ABSOLUTE COUNT (BEAKER) (test 3.51 K/ L 0.24-0.36 wlpl=600) EOSINOPHILS ABSOLUTE COUNT (BEAKER) (test 0.29 K/ L 0.04-0.36 qrxf=504) BASOPHILS ABSOLUTE COUNT (BEAKER) (test 0.07 K/ L 0.01-0.08 gvjq=786) IMMATURE GRANULOCYTES-RELATIVE PERCENT (BEAKER) 1 % 0-1 (test ycpl=4666) [id number] 05:35:00 Test Item Value Reference Range Comments PHOSPHORUS (BEAKER) (test pkmx=495) 4.4 mg/dL 2.3-4.7 [id number] 05:35:00 Test Item Value Reference Range Comments MAGNESIUM (BEAKER) (test iads=413) 1.3 mg/dL 1.6-2.6 BASIC METABOLIC [id number] 05:35:00 Test Item Value Reference Range Comments SODIUM (BEAKER) (test 136 meq/L 136-145 utyy=419) POTASSIUM (BEAKER) (test 5.4 meq/L 3.5-5.1 tdfx=090) CHLORIDE (BEAKER) (test 97 meq/L 98-107 hxiy=945) CO2 (BEAKER) (test 31 meq/L 22-29 vkkl=771) BLOOD UREA NITROGEN 20 mg/dL 7-21 (BEAKER) (test vjtn=594) CREATININE (BEAKER) (test 0.75 mg/dL 0.57-1.25 mhir=436) GLUCOSE RANDOM (BEAKER) 81 mg/dL 70-105 (test hrnz=284) CALCIUM (BEAKER) (test 9.5 mg/dL 8.4-10.2 nxuj=490) EGFR (BEAKER) (test 105 mL/min/1.73 sq m ESTIMATED GFR IS NOT clth=4468) ACCURATE CREATININE CLEARANCE IN PREDICTING GLOMERULAR FILTRATION RATE. ESTIMATED GFR IS NOT APPLICABLE FOR DIALYSIS PATIENTS. [id number] 16:19:00 Test Item Value Reference Range Comments POTASSIUM (BEAKER) (test rzaq=246) 5.2 meq/L 3.5-5.1 Repeat after 3 hours kayexalate was given; call result 245- [id number] 12:53:00 Test Item Value Reference Range Comments SODIUM (BEAKER) (test wdtn=388) 137 meq/L 136-145 POTASSIUM (BEAKER) (test edts=353) 5.4 meq/L 3.5-5.1 CHLORIDE (BEAKER) (test zekj=512) 100 meq/L 98-107 CO2 (BEAKER) (test tdoe=815) 30 meq/L 22-29 Call results [id number] 11:14:00 Test Item Value Reference Range Comments POTASSIUM (BEAKER) (test bzzp=666) 5.8 meq/L 3.5-5.1 [id number] 06:40:00 Test Item Value Reference Range Comments PHOSPHORUS (BEAKER) (test wkwn=032) 5.4 mg/dL 2.3-4.7 [id number] 06:40:00 Test Item Value Reference Range Comments MAGNESIUM (BEAKER) (test opgm=442) 1.6 mg/dL 1.6-2.6 CALCIUM, [id number] 06:27:00 Test Item Value Reference Range Comments CALCIUM IONIZED (BEAKER) (test gwnl=656) 0.99 mmol/L 1.12-1.27 PH, BLOOD (BEAKER) (test ykuo=1136) 7.43 CBC W/PLT COUNT & AUTO [id number] 05:53:00 Test Item Value Reference Range Comments WHITE BLOOD CELL COUNT (BEAKER) (test itwu=029) 16.2 K/ L 3.5-10.5 RED BLOOD CELL COUNT (BEAKER) (test jivu=252) 2.38 M/ L 3.93-5.22 HEMOGLOBIN (BEAKER) (test gndv=073) 7.0 GM/DL 11.2-15.7 HEMATOCRIT (BEAKER) (test wecg=710) 22.2 % 34.1-44.9 MEAN CORPUSCULAR VOLUME (BEAKER) (test wnkr=962) 93.3 fL 79.4-94.8 MEAN CORPUSCULAR HEMOGLOBIN (BEAKER) (test 29.4 pg 25.6-32.2 yfao=614) MEAN CORPUSCULAR HEMOGLOBIN CONC (BEAKER) (test 31.5 GM/DL 32.2-35.5 olku=458) RED CELL DISTRIBUTION WIDTH (BEAKER) (test 21.3 % 11.7-14.4 fqpf=323) PLATELET COUNT (BEAKER) (test mkvm=864) 390 K/CU MM 150-450 MEAN PLATELET VOLUME (BEAKER) (test gxpw=552) 11.8 fL 9.4-12.3 NUCLEATED RED BLOOD CELLS (BEAKER) (test 0 /100 WBC 0-0 dbez=993) NEUTROPHILS RELATIVE PERCENT (BEAKER) (test 58 % tnyf=499) LYMPHOCYTES RELATIVE PERCENT (BEAKER) (test 23 % thop=768) MONOCYTES RELATIVE PERCENT (BEAKER) (test 17 % ypbt=157) EOSINOPHILS RELATIVE PERCENT (BEAKER) (test 2 % giwa=105) BASOPHILS RELATIVE PERCENT (BEAKER) (test 0 % wufw=607) NEUTROPHILS ABSOLUTE COUNT (BEAKER) (test 9.31 K/ L 1.56-6.13 rigg=722) LYMPHOCYTES ABSOLUTE COUNT (BEAKER) (test 3.65 K/ L 1.18-3.74 mruz=469) MONOCYTES ABSOLUTE COUNT (BEAKER) (test 2.70 K/ L 0.24-0.36 dptg=965) EOSINOPHILS ABSOLUTE COUNT (BEAKER) (test 0.36 K/ L 0.04-0.36 zzfr=319) BASOPHILS ABSOLUTE COUNT (BEAKER) (test 0.04 K/ L 0.01-0.08 cvvo=058) IMMATURE GRANULOCYTES-RELATIVE PERCENT (BEAKER) 1 % 0-1 (test ugcr=7848) BASIC METABOLIC [id number] 17:35:00 Test Item Value Reference Range Comments SODIUM (BEAKER) (test 133 meq/L 136-145 dwxp=916) POTASSIUM (BEAKER) (test 5.4 meq/L 3.5-5.1 qklo=405) CHLORIDE (BEAKER) (test 99 meq/L 98-107 ezwx=808) CO2 (BEAKER) (test 26 meq/L 22-29 souz=882) BLOOD UREA NITROGEN 23 mg/dL 7-21 (BEAKER) (test vsiv=953) CREATININE (BEAKER) (test 0.83 mg/dL 0.57-1.25 dfui=452) GLUCOSE RANDOM (BEAKER) 94 mg/dL 70-105 (test mano=144) CALCIUM (BEAKER) (test 9.2 mg/dL 8.4-10.2 pfss=111) EGFR (BEAKER) (test 93 mL/min/1.73 sq m ESTIMATED GFR IS NOT eodu=0516) ACCURATE CREATININE CLEARANCE IN PREDICTING GLOMERULAR FILTRATION RATE. ESTIMATED GFR IS NOT APPLICABLE FOR DIALYSIS PATIENTS. [id number] 06:33:00 Test Item Value Reference Range Comments PHOSPHORUS (BEAKER) (test bduj=499) 5.3 mg/dL 2.3-4.7 [id number] 06:33:00 Test Item Value Reference Range Comments MAGNESIUM (BEAKER) (test rmgf=735) 1.6 mg/dL 1.6-2.6 BASIC METABOLIC [id number] 06:33:00 Test Item Value Reference Range Comments SODIUM (BEAKER) (test 133 meq/L 136-145 nltz=803) POTASSIUM (BEAKER) (test 5.2 meq/L 3.5-5.1 tpnw=298) CHLORIDE (BEAKER) (test 97 meq/L 98-107 brhq=784) CO2 (BEAKER) (test 29 meq/L 22-29 lpys=331) BLOOD UREA NITROGEN 23 mg/dL 7-21 (BEAKER) (test nxvi=361) CREATININE (BEAKER) (test 0.77 mg/dL 0.57-1.25 tmha=089) GLUCOSE RANDOM (BEAKER) 92 mg/dL 70-105 (test piis=609) CALCIUM (BEAKER) (test 9.4 mg/dL 8.4-10.2 cwvi=543) EGFR (BEAKER) (test 102 mL/min/1.73 sq m ESTIMATED GFR IS NOT rcuu=4266) ACCURATE CREATININE CLEARANCE IN PREDICTING GLOMERULAR FILTRATION RATE. ESTIMATED GFR IS NOT APPLICABLE FOR DIALYSIS PATIENTS. CALCIUM, [id number] 06:22:00 Test Item Value Reference Range Comments CALCIUM IONIZED (BEAKER) (test cybq=597) 1.18 mmol/L 1.12-1.27 PH, BLOOD (BEAKER) (test pokn=5256) 7.32 B-TYPE NATRIURETIC FACTOR (BNP)2017-11-21 06:19:00 Test Item Value Reference Range Comments B-TYPE NATRIURETIC PEPTIDE (BEAKER) (test 120 pg/mL 0-100 adps=104) CBC W/PLT COUNT & AUTO [id number] 05:59:00 Test Item Value Reference Range Comments WHITE BLOOD CELL COUNT (BEAKER) (test nqdr=274) 17.4 K/ L 3.5-10.5 RED BLOOD CELL COUNT (BEAKER) (test qohd=391) 2.32 M/ L 3.93-5.22 HEMOGLOBIN (BEAKER) (test lmjn=897) 6.7 GM/DL 11.2-15.7 HEMATOCRIT (BEAKER) (test afzo=708) 21.6 % 34.1-44.9 MEAN CORPUSCULAR VOLUME (BEAKER) (test sept=608) 93.1 fL 79.4-94.8 MEAN CORPUSCULAR HEMOGLOBIN (BEAKER) (test 28.9 pg 25.6-32.2 bxnr=015) MEAN CORPUSCULAR HEMOGLOBIN CONC (BEAKER) (test 31.0 GM/DL 32.2-35.5 dtqn=180) RED CELL DISTRIBUTION WIDTH (BEAKER) (test 20.9 % 11.7-14.4 awpf=184) PLATELET COUNT (BEAKER) (test mwfq=072) 367 K/CU MM 150-450 MEAN PLATELET VOLUME (BEAKER) (test izwh=212) 12.1 fL 9.4-12.3 NUCLEATED RED BLOOD CELLS (BEAKER) (test 0 /100 WBC 0-0 eptf=237) NEUTROPHILS RELATIVE PERCENT (BEAKER) (test 58 % jkeh=056) LYMPHOCYTES RELATIVE PERCENT (BEAKER) (test 23 % zdad=144) MONOCYTES RELATIVE PERCENT (BEAKER) (test 16 % gqum=125) EOSINOPHILS RELATIVE PERCENT (BEAKER) (test 3 % gnkl=991) BASOPHILS RELATIVE PERCENT (BEAKER) (test 1 % plgr=563) NEUTROPHILS ABSOLUTE COUNT (BEAKER) (test 10.09 K/ L 1.56-6.13 yrcn=788) LYMPHOCYTES ABSOLUTE COUNT (BEAKER) (test 3.92 K/ L 1.18-3.74 ohkr=154) MONOCYTES ABSOLUTE COUNT (BEAKER) (test 2.71 K/ L 0.24-0.36 ztqw=896) EOSINOPHILS ABSOLUTE COUNT (BEAKER) (test 0.46 K/ L 0.04-0.36 grif=415) BASOPHILS ABSOLUTE COUNT (BEAKER) (test 0.08 K/ L 0.01-0.08 fctk=247) IMMATURE GRANULOCYTES-RELATIVE PERCENT (BEAKER) 1 % 0-1 (test clws=0174) BLOOD GAS, [id number] 07:22:00 Test Item Value Reference Range Comments PH VENOUS (BEAKER) (test uili=834) 7.34 7.32-7.42 PCO2 VENOUS (BEAKER) (test fgej=674) 63 mmHg 41-51 PO2 VENOUS (BEAKER) (test btri=733) 133 mmHg 25-40 O2 SATURATION VENOUS (BEAKER) (test ikep=779) 98.4 % 40.0-70.0 HCO3 VENOUS (BEAKER) (test dsea=619) 33 mmol/L 21-29 BASE EXCESS VENOUS (BEAKER) (test czxt=496) 6.6 mmol/L -2.0-3.0 PATIENT TEMPERATURE (BEAKER) (test qblz=6308) 37.0 C FIO2 (BEAKER) (test nviv=8586) 21.0 % CALCIUM, [id number] 07:20:00 Test Item Value Reference Range Comments CALCIUM IONIZED (BEAKER) (test vqmo=784) 1.10 mmol/L 1.12-1.27 PH, BLOOD (BEAKER) (test ximr=6362) 7.33 [id number] 07:18:00 Test Item Value Reference Range Comments PHOSPHORUS (BEAKER) (test qfrg=642) 4.8 mg/dL 2.3-4.7 [id number] 07:18:00 Test Item Value Reference Range Comments MAGNESIUM (BEAKER) (test ynpq=182) 1.6 mg/dL 1.6-2.6 BASIC METABOLIC [id number] 07:18:00 Test Item Value Reference Range Comments SODIUM (BEAKER) (test 137 meq/L 136-145 omrr=476) POTASSIUM (BEAKER) (test 4.8 meq/L 3.5-5.1 qfbi=958) CHLORIDE (BEAKER) (test 99 meq/L 98-107 dbmu=660) CO2 (BEAKER) (test 31 meq/L 22-29 ifop=799) BLOOD UREA NITROGEN 20 mg/dL 7-21 (BEAKER) (test lzvh=216) CREATININE (BEAKER) (test 0.83 mg/dL 0.57-1.25 mqtk=849) GLUCOSE RANDOM (BEAKER) 117 mg/dL 70-105 (test kmlx=480) CALCIUM (BEAKER) (test 9.5 mg/dL 8.4-10.2 ehpi=883) EGFR (BEAKER) (test 93 mL/min/1.73 sq m ESTIMATED GFR IS NOT oypt=9923) ACCURATE CREATININE CLEARANCE IN PREDICTING GLOMERULAR FILTRATION RATE. ESTIMATED GFR IS NOT APPLICABLE FOR DIALYSIS PATIENTS. CBC W/PLT COUNT & AUTO [id number] 07:14:00 Test Item Value Reference Range Comments WHITE BLOOD CELL COUNT (BEAKER) (test leid=379) 16.7 K/ L 3.5-10.5 RED BLOOD CELL COUNT (BEAKER) (test jezw=133) 2.39 M/ L 3.93-5.22 HEMOGLOBIN (BEAKER) (test duib=798) 6.9 GM/DL 11.2-15.7 HEMATOCRIT (BEAKER) (test kcbo=482) 22.3 % 34.1-44.9 MEAN CORPUSCULAR VOLUME (BEAKER) (test mufz=195) 93.3 fL 79.4-94.8 MEAN CORPUSCULAR HEMOGLOBIN (BEAKER) (test 28.9 pg 25.6-32.2 fmsu=546) MEAN CORPUSCULAR HEMOGLOBIN CONC (BEAKER) (test 30.9 GM/DL 32.2-35.5 hetj=276) RED CELL DISTRIBUTION WIDTH (BEAKER) (test 21.1 % 11.7-14.4 xptt=087) PLATELET COUNT (BEAKER) (test hbtq=131) 344 K/CU MM 150-450 MEAN PLATELET VOLUME (BEAKER) (test qkln=147) 11.7 fL 9.4-12.3 NUCLEATED RED BLOOD CELLS (BEAKER) (test 0 /100 WBC 0-0 ouqk=218) NEUTROPHILS RELATIVE PERCENT (BEAKER) (test 60 % biod=980) LYMPHOCYTES RELATIVE PERCENT (BEAKER) (test 23 % yliq=229) MONOCYTES RELATIVE PERCENT (BEAKER) (test 14 % mehi=785) EOSINOPHILS RELATIVE PERCENT (BEAKER) (test 3 % hgif=952) BASOPHILS RELATIVE PERCENT (BEAKER) (test 0 % fsjr=094) NEUTROPHILS ABSOLUTE COUNT (BEAKER) (test 9.95 K/ L 1.56-6.13 kphz=071) LYMPHOCYTES ABSOLUTE COUNT (BEAKER) (test 3.92 K/ L 1.18-3.74 fllt=181) MONOCYTES ABSOLUTE COUNT (BEAKER) (test 2.29 K/ L 0.24-0.36 ftiy=206) EOSINOPHILS ABSOLUTE COUNT (BEAKER) (test 0.45 K/ L 0.04-0.36 gsew=835) BASOPHILS ABSOLUTE COUNT (BEAKER) (test 0.04 K/ L 0.01-0.08 ippg=158) IMMATURE GRANULOCYTES-RELATIVE PERCENT (BEAKER) 0 % 0-1 (test toaz=7583) [id number] 11:18:00 Test Item Value Reference Range Comments FERRITIN (BEAKER) (test nrwo=462) 98191 ng/mL 5-275 [id number] 07:10:00 Test Item Value Reference Range Comments MAGNESIUM (BEAKER) (test uvyp=674) 2.0 mg/dL 1.6-2.6 BASIC METABOLIC [id number] 07:10:00 Test Item Value Reference Range Comments SODIUM (BEAKER) (test 137 meq/L 136-145 qdpm=454) POTASSIUM (BEAKER) (test 4.5 meq/L 3.5-5.1 edes=320) CHLORIDE (BEAKER) (test 99 meq/L 98-107 rizq=239) CO2 (BEAKER) (test 35 meq/L 22-29 rlfl=459) BLOOD UREA NITROGEN 18 mg/dL 7-21 (BEAKER) (test wyuw=974) CREATININE (BEAKER) (test 0.78 mg/dL 0.57-1.25 mxgc=242) GLUCOSE RANDOM (BEAKER) 102 mg/dL 70-105 (test qxuf=988) CALCIUM (BEAKER) (test 9.4 mg/dL 8.4-10.2 kmrd=997) EGFR (BEAKER) (test 100 mL/min/1.73 sq m ESTIMATED GFR IS NOT zklh=4254) ACCURATE CREATININE CLEARANCE IN PREDICTING GLOMERULAR FILTRATION RATE. ESTIMATED GFR IS NOT APPLICABLE FOR DIALYSIS PATIENTS. CBC (HEMOGRAM ONLY)2017-11-19 07:06:00 Test Item Value Reference Range Comments WHITE BLOOD CELL COUNT (BEAKER) (test klju=137) 15.3 K/ L 3.5-10.5 RED BLOOD CELL COUNT (BEAKER) (test nbmq=283) 2.42 M/ L 3.93-5.22 HEMOGLOBIN (BEAKER) (test zyhp=274) 7.1 GM/DL 11.2-15.7 HEMATOCRIT (BEAKER) (test dhwy=064) 22.5 % 34.1-44.9 MEAN CORPUSCULAR VOLUME (BEAKER) (test sjrk=445) 93.0 fL 79.4-94.8 MEAN CORPUSCULAR HEMOGLOBIN (BEAKER) (test 29.3 pg 25.6-32.2 vtdl=206) MEAN CORPUSCULAR HEMOGLOBIN CONC (BEAKER) (test 31.6 GM/DL 32.2-35.5 jfyv=942) RED CELL DISTRIBUTION WIDTH (BEAKER) (test 20.9 % 11.7-14.4 sltu=918) PLATELET COUNT (BEAKER) (test nbqp=267) 324 K/CU MM 150-450 MEAN PLATELET VOLUME (BEAKER) (test mewo=071) 11.8 fL 9.4-12.3 NUCLEATED RED BLOOD CELLS (BEAKER) (test 1 /100 WBC 0-0 hibl=898) BLOOD [id number] 06:00:00 Test Item Value Reference Range Comments CULTURE (BEAKER) (test jero=4755) No growth in 5 days ANTI-NUCLEAR ANTIBODY (AMARILYS)2017-11-17 14:21:00 Test Item Value Reference Range Comments ANTI-NUCLEAR ANTIBODY (AMARILYS) (BEAKER) (test Positive Negative cnoy=968) AMARILYS TITER AND [id number] 14:21:00 Test Item Value Reference Range Comments AMARILYS TITER (BEAKER) (test :160 bdvz=2762) AMARILYS PATTERN (BEAKER) (test Multiple nuclear dots pattern hsjm=6245) [id number] 07:16:00 Test Item Value Reference Range Comments PHOSPHORUS (BEAKER) (test hrsf=162) 4.5 mg/dL 2.3-4.7 [id number] 07:16:00 Test Item Value Reference Range Comments MAGNESIUM (BEAKER) (test xjet=452) 1.4 mg/dL 1.6-2.6 BASIC METABOLIC [id number] 07:16:00 Test Item Value Reference Range Comments SODIUM (BEAKER) (test 141 meq/L 136-145 eurg=106) POTASSIUM (BEAKER) (test 4.2 meq/L 3.5-5.1 kjfu=102) CHLORIDE (BEAKER) (test 98 meq/L 98-107 adgz=074) CO2 (BEAKER) (test 34 meq/L 22-29 wgih=318) BLOOD UREA NITROGEN 21 mg/dL 7-21 (BEAKER) (test bsrs=554) CREATININE (BEAKER) (test 0.85 mg/dL 0.57-1.25 favo=232) GLUCOSE RANDOM (BEAKER) 98 mg/dL 70-105 (test wmuw=316) CALCIUM (BEAKER) (test 9.2 mg/dL 8.4-10.2 fydp=082) EGFR (BEAKER) (test 91 mL/min/1.73 sq m ESTIMATED GFR IS NOT usbh=5877) ACCURATE CREATININE CLEARANCE IN PREDICTING GLOMERULAR FILTRATION RATE. ESTIMATED GFR IS NOT APPLICABLE FOR DIALYSIS PATIENTS. HEPATIC FUNCTION [id number] 07:16:00 Test Item Value Reference Range Comments TOTAL PROTEIN (BEAKER) (test cmxu=535) 8.3 gm/dL 6.0-8.3 ALBUMIN (BEAKER) (test blrc=5585) 3.0 g/dL 3.5-5.0 BILIRUBIN TOTAL (BEAKER) (test lhvv=051) 1.3 mg/dL 0.2-1.2 BILIRUBIN DIRECT (BEAKER) (test fdvr=780) 0.7 mg/dL 0.1-0.5 ALKALINE PHOSPHATASE (BEAKER) (test bgfr=901) 217 U/L 40-150 AST (SGOT) (BEAKER) (test edgw=190) 106 U/L 5-34 ALT (SGPT) (BEAKER) (test ptki=038) 46 U/L 6-55 CALCIUM, [id number] 06:50:00 Test Item Value Reference Range Comments CALCIUM IONIZED (BEAKER) (test hcmy=453) 1.11 mmol/L 1.12-1.27 PH, BLOOD (BEAKER) (test locb=7438) 7.34 CBC W/PLT COUNT & AUTO [id number] 06:09:00 Test Item Value Reference Range Comments WHITE BLOOD CELL COUNT (BEAKER) (test cmqm=423) 16.8 K/ L 3.5-10.5 RED BLOOD CELL COUNT (BEAKER) (test oyon=250) 2.53 M/ L 3.93-5.22 HEMOGLOBIN (BEAKER) (test bvfy=340) 7.3 GM/DL 11.2-15.7 HEMATOCRIT (BEAKER) (test qkex=111) 23.3 % 34.1-44.9 MEAN CORPUSCULAR VOLUME (BEAKER) (test yert=460) 92.1 fL 79.4-94.8 MEAN CORPUSCULAR HEMOGLOBIN (BEAKER) (test 28.9 pg 25.6-32.2 auwi=074) MEAN CORPUSCULAR HEMOGLOBIN CONC (BEAKER) (test 31.3 GM/DL 32.2-35.5 laxg=321) RED CELL DISTRIBUTION WIDTH (BEAKER) (test 20.2 % 11.7-14.4 ylci=413) PLATELET COUNT (BEAKER) (test txdf=838) 305 K/CU MM 150-450 MEAN PLATELET VOLUME (BEAKER) (test kprw=161) 12.0 fL 9.4-12.3 NUCLEATED RED BLOOD CELLS (BEAKER) (test 1 /100 WBC 0-0 najj=471) NEUTROPHILS RELATIVE PERCENT (BEAKER) (test 66 % biqv=860) LYMPHOCYTES RELATIVE PERCENT (BEAKER) (test 20 % kgvt=734) MONOCYTES RELATIVE PERCENT (BEAKER) (test 11 % xulq=698) EOSINOPHILS RELATIVE PERCENT (BEAKER) (test 3 % homg=362) BASOPHILS RELATIVE PERCENT (BEAKER) (test 0 % pwrf=681) NEUTROPHILS ABSOLUTE COUNT (BEAKER) (test 10.99 K/ L 1.56-6.13 fhar=769) LYMPHOCYTES ABSOLUTE COUNT (BEAKER) (test 3.29 K/ L 1.18-3.74 utfh=808) MONOCYTES ABSOLUTE COUNT (BEAKER) (test 1.89 K/ L 0.24-0.36 keyf=626) EOSINOPHILS ABSOLUTE COUNT (BEAKER) (test 0.48 K/ L 0.04-0.36 maoc=994) BASOPHILS ABSOLUTE COUNT (BEAKER) (test 0.05 K/ L 0.01-0.08 qtuy=989) IMMATURE GRANULOCYTES-RELATIVE PERCENT (BEAKER) 0 % 0-1 (test anhj=1480) HEPATITIS PANEL, [id number] 14:32:00 Test Item Value Reference Range Comments HEPATITIS A IGM ANTIBODY (BEAKER) (test Nonreactive Nonreactive gfkn=842) HEPATITIS B CORE IGM ANTIBODY (BEAKER) (test Nonreactive Nonreactive nvxz=405) HEPATITIS C ANTIBODY (BEAKER) (test xyui=829) Nonreactive Nonreactive HEPATITIS B SURFACE ANTIGEN (2) (BEAKER) (test Nonreactive Nonreactive iyfu=6551) RAD, MANDIBLE, LESS THAN 4 [id number] 12:28:00Reason for exam:->fever, dental cariesFINAL REPORT Mandible [...] air cells are well aerated. Signed: [facility] [employer] XII Verified Date/Time: 11/16/2017 12:28:43 Reading Location: [facility] Reading Room RAD, CHEST, 2 [id number] 10:47:00Reason for exam:-> fever, chest painFINAL REPORT [...] MDReport Verified Date/Time: 11/16/2017 10:47:19 Reading Location: [facility] Reading Room URINE [id number] 09:53:00 Test Item Value Reference Range Comments CULTURE (BEAKER) (test meun=4547) >100,000 col/mL skin valentino CBC W/PLT COUNT & AUTO [id number] 09:20:00 Test Item Value Reference Range Comments WHITE BLOOD CELL COUNT (BEAKER) (test bcyq=550) 18.6 K/ L 3.5-10.5 RED BLOOD CELL COUNT (BEAKER) (test sywb=340) 2.63 M/ L 3.93-5.22 HEMOGLOBIN (BEAKER) (test egsp=437) 7.6 GM/DL 11.2-15.7 HEMATOCRIT (BEAKER) (test hmag=551) 23.8 % 34.1-44.9 MEAN CORPUSCULAR VOLUME (BEAKER) (test diuy=026) 90.5 fL 79.4-94.8 MEAN CORPUSCULAR HEMOGLOBIN (BEAKER) (test 28.9 pg 25.6-32.2 jopw=883) MEAN CORPUSCULAR HEMOGLOBIN CONC (BEAKER) (test 31.9 GM/DL 32.2-35.5 edfp=849) RED CELL DISTRIBUTION WIDTH (BEAKER) (test 19.9 % 11.7-14.4 blya=073) PLATELET COUNT (BEAKER) (test qtib=961) 330 K/CU MM 150-450 MEAN PLATELET VOLUME (BEAKER) (test ibvt=706) 11.9 fL 9.4-12.3 NUCLEATED RED BLOOD CELLS (BEAKER) (test 1 /100 WBC 0-0 ldih=297) NEUTROPHILS RELATIVE PERCENT (BEAKER) (test 65 % pccb=959) LYMPHOCYTES RELATIVE PERCENT (BEAKER) (test 22 % qfzj=427) MONOCYTES RELATIVE PERCENT (BEAKER) (test 10 % yjfe=080) EOSINOPHILS RELATIVE PERCENT (BEAKER) (test 2 % npum=556) BASOPHILS RELATIVE PERCENT (BEAKER) (test 0 % vlax=833) NEUTROPHILS ABSOLUTE COUNT (BEAKER) (test 12.09 K/ L 1.56-6.13 ooyh=484) LYMPHOCYTES ABSOLUTE COUNT (BEAKER) (test 4.02 K/ L 1.18-3.74 yfdy=933) MONOCYTES ABSOLUTE COUNT (BEAKER) (test 1.90 K/ L 0.24-0.36 wvva=578) EOSINOPHILS ABSOLUTE COUNT (BEAKER) (test 0.41 K/ L 0.04-0.36 hqru=839) BASOPHILS ABSOLUTE COUNT (BEAKER) (test 0.05 K/ L 0.01-0.08 ygse=049) IMMATURE GRANULOCYTES-RELATIVE PERCENT (BEAKER) 0 % 0-1 (test usfu=3356) (MANUAL DIFFERENTIAL)2017-11-16 09:20:00 Test Item Value Reference Range Comments TOTAL COUNTED (BEAKER) (test nwds=9629) WBC MORPHOLOGY (BEAKER) (test pged=174) Normal PLT MORPHOLOGY (BEAKER) (test mrja=621) Normal POLYCHROMATOPHILLIC RBCS(BEAKER) (test hosg=567) 1+ few SICKLE CELLS (BEAKER) (test porr=204) 1+ few TARGET CELLS (BEAKER) (test cufy=730) 2+ moderate CALCIUM, [id number] 07:28:00 Test Item Value Reference Range Comments CALCIUM IONIZED (BEAKER) (test sjnm=990) 0.97 mmol/L 1.12-1.27 PH, BLOOD (BEAKER) (test vveq=0618) 7.45 [id number] 05:48:00 Test Item Value Reference Range Comments PHOSPHORUS (BEAKER) (test lodw=954) 4.8 mg/dL 2.3-4.7 [id number] 05:48:00 Test Item Value Reference Range Comments MAGNESIUM (BEAKER) (test kxzd=378) 1.6 mg/dL 1.6-2.6 BASIC METABOLIC [id number] 05:48:00 Test Item Value Reference Range Comments SODIUM (BEAKER) (test 139 meq/L 136-145 leij=015) POTASSIUM (BEAKER) (test 3.9 meq/L 3.5-5.1 mgpn=338) CHLORIDE (BEAKER) (test 98 meq/L 98-107 ujev=384) CO2 (BEAKER) (test 32 meq/L 22-29 gajx=475) BLOOD UREA NITROGEN 23 mg/dL 7-21 (BEAKER) (test grmp=544) CREATININE (BEAKER) (test 1.10 mg/dL 0.57-1.25 lfgp=705) GLUCOSE RANDOM (BEAKER) 115 mg/dL 70-105 (test abxa=755) CALCIUM (BEAKER) (test 9.0 mg/dL 8.4-10.2 khvq=967) EGFR (BEAKER) (test 67 mL/min/1.73 sq m ESTIMATED GFR IS NOT ktvz=6800) ACCURATE CREATININE CLEARANCE IN PREDICTING GLOMERULAR FILTRATION RATE. ESTIMATED GFR IS NOT APPLICABLE FOR DIALYSIS PATIENTS. URINALYSIS W/ [id number] 19:14:00 Test Item Value Reference Range Comments COLOR (BEAKER) (test lpaj=082) Yellow CLARITY (BEAKER) (test lzlu=361) Clear SPECIFIC GRAVITY UA (BEAKER) (test vuar=450) 1.006 1.001-1.035 PH UA (BEAKER) (test honj=602) 7.5 5.0-8.0 PROTEIN UA (BEAKER) (test ghae=858) Negative Negative GLUCOSE UA (BEAKER) (test xlmb=503) Negative Negative KETONES UA (BEAKER) (test rkku=849) Negative Negative BILIRUBIN UA (BEAKER) (test zqyn=458) Negative Negative BLOOD UA (BEAKER) (test ctbr=746) Trace Negative NITRITE UA (BEAKER) (test azga=102) Negative Negative LEUKOCYTE ESTERASE UA (BEAKER) (test luqs=620) Small Negative UROBILINOGEN UA (BEAKER) (test qoun=436) 0.2 mg/dL 0.2-1.0 RBC UA (BEAKER) (test nzmw=753) < /HPF WBC UA (BEAKER) (test xufk=080) 7 /HPF BACTERIA (BEAKER) (test txbh=699) Rare SQUAMOUS EPITHELIAL (BEAKER) (test eert=089) 1 /HPF SOURCE(BEAKER) (test bdbb=2875) Urine, Voided [id number] 13:26:00 Test Item Value Reference Range Comments LIPASE (BEAKER) (test zlkf=207) 95 U/L 8-78 RAD, ABDOMEN/KUB, 1 VIEW [id number] 12:43:00Reason for exam:->abdominal painFINAL REPORT Abdomen one [...] Caineport Verified Date/Time: 11/15/2017 12:43:04 Reading Location: [facility] Reading Room CBC W/PLT COUNT & AUTO [id number] 10:00:00 Test Item Value Reference Range Comments WHITE BLOOD CELL COUNT (BEAKER) (test feyc=113) 18.8 K/ L 3.5-10.5 RED BLOOD CELL COUNT (BEAKER) (test uhbp=831) 1.83 M/ L 3.93-5.22 HEMOGLOBIN (BEAKER) (test ovdo=408) 5.4 GM/DL 11.2-15.7 HEMATOCRIT (BEAKER) (test qdat=274) 16.7 % 34.1-44.9 MEAN CORPUSCULAR VOLUME (BEAKER) (test opbc=169) 91.3 fL 79.4-94.8 MEAN CORPUSCULAR HEMOGLOBIN (BEAKER) (test 29.5 pg 25.6-32.2 fhjl=775) MEAN CORPUSCULAR HEMOGLOBIN CONC (BEAKER) (test 32.3 GM/DL 32.2-35.5 olff=986) RED CELL DISTRIBUTION WIDTH (BEAKER) (test 21.7 % 11.7-14.4 hdxp=858) PLATELET COUNT (BEAKER) (test jnbg=495) 340 K/CU MM 150-450 MEAN PLATELET VOLUME (BEAKER) (test qrop=802) 11.3 fL 9.4-12.3 NUCLEATED RED BLOOD CELLS (BEAKER) (test 2 /100 WBC 0-0 kllt=698) NEUTROPHILS RELATIVE PERCENT (BEAKER) (test 65 % gomx=380) LYMPHOCYTES RELATIVE PERCENT (BEAKER) (test 23 % lgrq=404) MONOCYTES RELATIVE PERCENT (BEAKER) (test 10 % jkln=621) EOSINOPHILS RELATIVE PERCENT (BEAKER) (test 1 % dhns=345) BASOPHILS RELATIVE PERCENT (BEAKER) (test 0 % ttpk=184) NEUTROPHILS ABSOLUTE COUNT (BEAKER) (test 12.25 K/ L 1.56-6.13 dlkh=601) LYMPHOCYTES ABSOLUTE COUNT (BEAKER) (test 4.31 K/ L 1.18-3.74 xvpq=648) MONOCYTES ABSOLUTE COUNT (BEAKER) (test 1.88 K/ L 0.24-0.36 eqpx=615) EOSINOPHILS ABSOLUTE COUNT (BEAKER) (test 0.26 K/ L 0.04-0.36 kfuu=763) BASOPHILS ABSOLUTE COUNT (BEAKER) (test 0.02 K/ L 0.01-0.08 jhyq=080) IMMATURE GRANULOCYTES-RELATIVE PERCENT (BEAKER) 1 % 0-1 (test aobn=5067) (MANUAL DIFFERENTIAL)2017-11-15 10:00:00 Test Item Value Reference Range Comments TOTAL COUNTED (BEAKER) (test ycpq=6390) ATYPICAL LYMPHS(BEAKER) (test qtte=7333) Present LARGE PLT(BEAKER) (test lkzf=9655) Present HYPOCHROMIA (BEAKER) (test kzzt=939) 1+ few POLYCHROMATOPHILLIC RBCS(BEAKER) (test vzcx=511) 1+ few SICKLE CELLS (BEAKER) (test udmm=000) 1+ few TARGET CELLS (BEAKER) (test bxml=205) 1+ few U/S, ENDOVAGINAL (EV)2017-11-15 09:03:00Reason for [...] MDReport Verified Date/Time: 2017 09:03:15 Reading Location: [facility] [id number] Ultrasound Reading Room CBC W/ PLT COUNT & AUTO [id number] 08:32:00 Test Item Value Reference Range Comments WHITE BLOOD CELL COUNT (BEAKER) (test xtcl=619) 19.8 K/ L 3.5-10.5 RED BLOOD CELL COUNT (BEAKER) (test dhpd=401) 1.89 M/ L 3.93-5.22 HEMOGLOBIN (BEAKER) (test jafw=368) 5.6 GM/DL 11.2-15.7 HEMATOCRIT (BEAKER) (test tlhj=644) 17.2 % 34.1-44.9 MEAN CORPUSCULAR VOLUME (BEAKER) (test fajx=324) 91.0 fL 79.4-94.8 MEAN CORPUSCULAR HEMOGLOBIN (BEAKER) (test 29.6 pg 25.6-32.2 knel=678) MEAN CORPUSCULAR HEMOGLOBIN CONC (BEAKER) (test 32.6 GM/DL 32.2-35.5 ixgu=970) RED CELL DISTRIBUTION WIDTH (BEAKER) (test 21.4 % 11.7-14.4 gpmt=493) PLATELET COUNT (BEAKER) (test mhrk=927) 366 K/CU MM 150-450 MEAN PLATELET VOLUME (BEAKER) (test mfcw=987) 11.6 fL 9.4-12.3 NUCLEATED RED BLOOD CELLS (BEAKER) (test 2 /100 WBC 0-0 epau=730) NEUTROPHILS RELATIVE PERCENT (BEAKER) (test 70 % wazy=855) LYMPHOCYTES RELATIVE PERCENT (BEAKER) (test 18 % ntsb=726) MONOCYTES RELATIVE PERCENT (BEAKER) (test 10 % uefg=148) EOSINOPHILS RELATIVE PERCENT (BEAKER) (test 1 % fxug=700) BASOPHILS RELATIVE PERCENT (BEAKER) (test 0 % dyny=634) NEUTROPHILS ABSOLUTE COUNT (BEAKER) (test 13.93 K/ L 1.56-6.13 hfwh=528) LYMPHOCYTES ABSOLUTE COUNT (BEAKER) (test 3.51 K/ L 1.18-3.74 ludl=066) MONOCYTES ABSOLUTE COUNT (BEAKER) (test 2.03 K/ L 0.24-0.36 tgib=092) EOSINOPHILS ABSOLUTE COUNT (BEAKER) (test 0.23 K/ L 0.04-0.36 gqso=756) BASOPHILS ABSOLUTE COUNT (BEAKER) (test 0.02 K/ L 0.01-0.08 zxnd=161) IMMATURE GRANULOCYTES-RELATIVE PERCENT (BEAKER) 0 % 0-1 (test dogj=1308) [id number] 06:16:00 Test Item Value Reference Range Comments PHOSPHORUS (BEAKER) (test eyty=849) 4.6 mg/dL 2.3-4.7 [id number] 06:16:00 Test Item Value Reference Range Comments MAGNESIUM (BEAKER) (test ofsh=891) 1.6 mg/dL 1.6-2.6 BASIC METABOLIC [id number] 06:16:00 Test Item Value Reference Range Comments SODIUM (BEAKER) (test 139 meq/L 136-145 cmcx=186) POTASSIUM (BEAKER) (test 3.9 meq/L 3.5-5.1 zkiu=058) CHLORIDE (BEAKER) (test 97 meq/L 98-107 zokb=312) CO2 (BEAKER) (test 33 meq/L 22-29 jlbw=801) BLOOD UREA NITROGEN 24 mg/dL 7-21 (BEAKER) (test qtry=363) CREATININE (BEAKER) (test 1.15 mg/dL 0.57-1.25 jisd=067) GLUCOSE RANDOM (BEAKER) 104 mg/dL 70-105 (test xach=928) CALCIUM (BEAKER) (test 9.1 mg/dL 8.4-10.2 mvla=471) EGFR (BEAKER) (test 64 mL/min/1.73 sq m ESTIMATED GFR IS NOT djib=5656) ACCURATE CREATININE CLEARANCE IN PREDICTING GLOMERULAR FILTRATION RATE. ESTIMATED GFR IS NOT APPLICABLE FOR DIALYSIS PATIENTS. HEPATIC FUNCTION [id number] 06:16:00 Test Item Value Reference Range Comments TOTAL PROTEIN (BEAKER) (test sjse=831) 8.2 gm/dL 6.0-8.3 ALBUMIN (BEAKER) (test rttg=8682) 2.9 g/dL 3.5-5.0 BILIRUBIN TOTAL (BEAKER) (test bgdf=529) 1.1 mg/dL 0.2-1.2 BILIRUBIN DIRECT (BEAKER) (test gqwl=866) 0.5 mg/dL 0.1-0.5 ALKALINE PHOSPHATASE (BEAKER) (test qhxh=652) 164 U/L 40-150 AST (SGOT) (BEAKER) (test ldxv=400) 76 U/L 5-34 ALT (SGPT) (BEAKER) (test aano=937) 34 U/L 6-55 CALCIUM, [id number] 06:00:00 Test Item Value Reference Range Comments CALCIUM IONIZED (BEAKER) (test gfsu=470) 0.93 mmol/L 1.12-1.27 PH, BLOOD (BEAKER) (test wxum=4299) 7.52 URINALYSIS W/ [id number] 18:32:00 Test Item Value Reference Range Comments COLOR (BEAKER) (test ueek=009) Light Yellow CLARITY (BEAKER) (test vumm=357) Clear SPECIFIC GRAVITY UA (BEAKER) (test yvft=800) 1.006 1.001-1.035 PH UA (BEAKER) (test zwki=390) 7.0 5.0-8.0 PROTEIN UA (BEAKER) (test gikc=991) Negative Negative GLUCOSE UA (BEAKER) (test pwts=632) Negative Negative KETONES UA (BEAKER) (test yzst=408) Negative Negative BILIRUBIN UA (BEAKER) (test dfti=099) Negative Negative BLOOD UA (BEAKER) (test ttpo=302) Trace Negative NITRITE UA (BEAKER) (test szix=644) Negative Negative LEUKOCYTE ESTERASE UA (BEAKER) (test psda=719) Small Negative UROBILINOGEN UA (BEAKER) (test xknz=428) 0.2 mg/dL 0.2-1.0 RBC UA (BEAKER) (test kktv=727) 1 /HPF WBC UA (BEAKER) (test jbmf=272) 7 /HPF BACTERIA (BEAKER) (test uoua=469) Rare MUCUS (BEAKER) (test owsi=4327) Rare SQUAMOUS EPITHELIAL (BEAKER) (test goxm=268) 4 /HPF SOURCE(BEAKER) (test arfc=9628) Urine, Voided CALCIUM, [id number] 07:19:00 Test Item Value Reference Range Comments CALCIUM IONIZED (BEAKER) (test zddw=946) 1.03 mmol/L 1.12-1.27 PH, BLOOD (BEAKER) (test vdfq=8618) 7.40 CBC W/PLT COUNT & AUTO [id number] 06:26:00 Test Item Value Reference Range Comments WHITE BLOOD CELL COUNT (BEAKER) (test haqi=307) 18.5 K/ L 3.5-10.5 RED BLOOD CELL COUNT (BEAKER) (test nkhe=409) 2.02 M/ L 3.93-5.22 HEMOGLOBIN (BEAKER) (test jtqq=153) 6.0 GM/DL 11.2-15.7 HEMATOCRIT (BEAKER) (test ptob=327) 18.5 % 34.1-44.9 MEAN CORPUSCULAR VOLUME (BEAKER) (test mmur=774) 91.6 fL 79.4-94.8 MEAN CORPUSCULAR HEMOGLOBIN (BEAKER) (test 29.7 pg 25.6-32.2 jkxd=100) MEAN CORPUSCULAR HEMOGLOBIN CONC (BEAKER) (test 32.4 GM/DL 32.2-35.5 fdgz=029) RED CELL DISTRIBUTION WIDTH (BEAKER) (test 21.9 % 11.7-14.4 yfzy=151) PLATELET COUNT (BEAKER) (test cywd=145) 337 K/CU MM 150-450 MEAN PLATELET VOLUME (BEAKER) (test htff=220) 11.7 fL 9.4-12.3 NUCLEATED RED BLOOD CELLS (BEAKER) (test 4 /100 WBC 0-0 nuvh=007) NEUTROPHILS RELATIVE PERCENT (BEAKER) (test 76 % hoxa=392) LYMPHOCYTES RELATIVE PERCENT (BEAKER) (test 16 % fsrq=875) MONOCYTES RELATIVE PERCENT (BEAKER) (test 6 % yxte=501) EOSINOPHILS RELATIVE PERCENT (BEAKER) (test 1 % riok=844) BASOPHILS RELATIVE PERCENT (BEAKER) (test 0 % jpuf=686) NEUTROPHILS ABSOLUTE COUNT (BEAKER) (test 13.98 K/ L 1.56-6.13 iroh=556) LYMPHOCYTES ABSOLUTE COUNT (BEAKER) (test 3.02 K/ L 1.18-3.74 ifub=047) MONOCYTES ABSOLUTE COUNT (BEAKER) (test 1.13 K/ L 0.24-0.36 efsu=431) EOSINOPHILS ABSOLUTE COUNT (BEAKER) (test 0.09 K/ L 0.04-0.36 xskm=708) BASOPHILS ABSOLUTE COUNT (BEAKER) (test 0.05 K/ L 0.01-0.08 kdkl=519) IMMATURE GRANULOCYTES-RELATIVE PERCENT (BEAKER) 1 % 0-1 (test wmsm=1742) [id number] 06:21:00 Test Item Value Reference Range Comments PHOSPHORUS (BEAKER) (test lgfe=382) 4.3 mg/dL 2.3-4.7 [id number] 06:21:00 Test Item Value Reference Range Comments MAGNESIUM (BEAKER) (test phpx=109) 2.1 mg/dL 1.6-2.6 BASIC METABOLIC [id number] 06:21:00 Test Item Value Reference Range Comments SODIUM (BEAKER) (test 139 meq/L 136-145 oorw=207) POTASSIUM (BEAKER) (test 4.0 meq/L 3.5-5.1 qrpz=507) CHLORIDE (BEAKER) (test 99 meq/L 98-107 ljit=680) CO2 (BEAKER) (test 31 meq/L 22-29 cyxn=557) BLOOD UREA NITROGEN 23 mg/dL 7-21 (BEAKER) (test hgqa=005) CREATININE (BEAKER) (test 1.29 mg/dL 0.57-1.25 fnpv=477) GLUCOSE RANDOM (BEAKER) 116 mg/dL 70-105 (test xtfz=614) CALCIUM (BEAKER) (test 8.8 mg/dL 8.4-10.2 ybjh=291) EGFR (BEAKER) (test 56 mL/min/1.73 sq m ESTIMATED GFR IS NOT awtn=6690) ACCURATE CREATININE CLEARANCE IN PREDICTING GLOMERULAR FILTRATION RATE. ESTIMATED GFR IS NOT APPLICABLE FOR DIALYSIS PATIENTS. B-TYPE NATRIURETIC FACTOR (BNP)2017-11-13 07:27:00 Test Item Value Reference Range Comments B-TYPE NATRIURETIC PEPTIDE (BEAKER) (test 166 pg/mL 0-100 ovbv=579) [id number] 07:26:00 Test Item Value Reference Range Comments PHOSPHORUS (BEAKER) (test szxs=440) 4.6 mg/dL 2.3-4.7 [id number] 07:26:00 Test Item Value Reference Range Comments MAGNESIUM (BEAKER) (test zyos=877) 1.6 mg/dL 1.6-2.6 BASIC METABOLIC [id number] 07:26:00 Test Item Value Reference Range Comments SODIUM (BEAKER) (test 139 meq/L 136-145 xfnq=301) POTASSIUM (BEAKER) (test 3.5 meq/L 3.5-5.1 sqre=824) CHLORIDE (BEAKER) (test 101 meq/L 98-107 xgko=636) CO2 (BEAKER) (test 32 meq/L 22-29 qydr=379) BLOOD UREA NITROGEN 14 mg/dL 7-21 (BEAKER) (test rwxf=352) CREATININE (BEAKER) (test 1.09 mg/dL 0.57-1.25 ukpc=409) GLUCOSE RANDOM (BEAKER) 92 mg/dL 70-105 (test pwyf=981) CALCIUM (BEAKER) (test 8.5 mg/dL 8.4-10.2 ojjg=637) EGFR (BEAKER) (test 68 mL/min/1.73 sq m ESTIMATED GFR IS NOT unnr=0364) ACCURATE CREATININE CLEARANCE IN PREDICTING GLOMERULAR FILTRATION RATE. ESTIMATED GFR IS NOT APPLICABLE FOR DIALYSIS PATIENTS. CBC W/PLT COUNT & AUTO [id number] 07:23:00 Test Item Value Reference Range Comments WHITE BLOOD CELL COUNT (BEAKER) (test vqnu=302) 18.4 K/ L 3.5-10.5 RED BLOOD CELL COUNT (BEAKER) (test fsnb=666) 2.03 M/ L 3.93-5.22 HEMOGLOBIN (BEAKER) (test yzvy=369) 6.0 GM/DL 11.2-15.7 HEMATOCRIT (BEAKER) (test vkub=095) 18.8 % 34.1-44.9 MEAN CORPUSCULAR VOLUME (BEAKER) (test vefm=851) 92.6 fL 79.4-94.8 MEAN CORPUSCULAR HEMOGLOBIN (BEAKER) (test 29.6 pg 25.6-32.2 eoas=749) MEAN CORPUSCULAR HEMOGLOBIN CONC (BEAKER) (test 31.9 GM/DL 32.2-35.5 wuko=312) RED CELL DISTRIBUTION WIDTH (BEAKER) (test 22.9 % 11.7-14.4 aeap=332) PLATELET COUNT (BEAKER) (test pbth=191) 302 K/CU MM 150-450 MEAN PLATELET VOLUME (BEAKER) (test guct=133) 11.3 fL 9.4-12.3 NUCLEATED RED BLOOD CELLS (BEAKER) (test 7 /100 WBC 0-0 phdt=810) NEUTROPHILS RELATIVE PERCENT (BEAKER) (test 74 % axaj=786) LYMPHOCYTES RELATIVE PERCENT (BEAKER) (test 18 % mxbt=753) MONOCYTES RELATIVE PERCENT (BEAKER) (test 7 % xrii=662) EOSINOPHILS RELATIVE PERCENT (BEAKER) (test 0 % adqh=689) BASOPHILS RELATIVE PERCENT (BEAKER) (test 0 % rbfk=314) NEUTROPHILS ABSOLUTE COUNT (BEAKER) (test 13.58 K/ L 1.56-6.13 feyf=141) LYMPHOCYTES ABSOLUTE COUNT (BEAKER) (test 3.24 K/ L 1.18-3.74 krij=021) MONOCYTES ABSOLUTE COUNT (BEAKER) (test 1.23 K/ L 0.24-0.36 fjfp=739) EOSINOPHILS ABSOLUTE COUNT (BEAKER) (test 0.07 K/ L 0.04-0.36 sjvc=668) BASOPHILS ABSOLUTE COUNT (BEAKER) (test 0.05 K/ L 0.01-0.08 nunp=291) IMMATURE GRANULOCYTES-RELATIVE PERCENT (BEAKER) 1 % 0-1 (test gfpa=7888) CALCIUM, [id number] 07:08:00 Test Item Value Reference Range Comments CALCIUM IONIZED (BEAKER) (test xpqh=527) 1.03 mmol/L 1.12-1.27 PH, BLOOD (BEAKER) (test jqhe=4157) 7.38 CBC W/PLT COUNT & AUTO [id number] 08:23:00 Test Item Value Reference Range Comments WHITE BLOOD CELL COUNT (BEAKER) (test yrlq=106) 20.4 K/ L 3.5-10.5 RED BLOOD CELL COUNT (BEAKER) (test dmoy=177) 2.08 M/ L 3.93-5.22 HEMOGLOBIN (BEAKER) (test ncpz=869) 6.4 GM/DL 11.2-15.7 HEMATOCRIT (BEAKER) (test rcdh=685) 19.7 % 34.1-44.9 MEAN CORPUSCULAR VOLUME (BEAKER) (test sqmh=942) 94.7 fL 79.4-94.8 MEAN CORPUSCULAR HEMOGLOBIN (BEAKER) (test 30.8 pg 25.6-32.2 frmt=642) MEAN CORPUSCULAR HEMOGLOBIN CONC (BEAKER) (test 32.5 GM/DL 32.2-35.5 xxsy=340) RED CELL DISTRIBUTION WIDTH (BEAKER) (test 24.3 % 11.7-14.4 iyeh=328) PLATELET COUNT (BEAKER) (test eouy=993) 290 K/CU MM 150-450 MEAN PLATELET VOLUME (BEAKER) (test vtvq=806) 11.5 fL 9.4-12.3 NUCLEATED RED BLOOD CELLS (BEAKER) (test 19 /100 WBC 0-0 hzez=366) NEUTROPHILS RELATIVE PERCENT (BEAKER) (test 75 % wzuk=557) LYMPHOCYTES RELATIVE PERCENT (BEAKER) (test 16 % xyyo=768) MONOCYTES RELATIVE PERCENT (BEAKER) (test 8 % ycjv=629) EOSINOPHILS RELATIVE PERCENT (BEAKER) (test 0 % eknz=299) BASOPHILS RELATIVE PERCENT (BEAKER) (test 0 % odfe=349) NEUTROPHILS ABSOLUTE COUNT (BEAKER) (test 15.32 K/ L 1.56-6.13 lfid=721) LYMPHOCYTES ABSOLUTE COUNT (BEAKER) (test 3.24 K/ L 1.18-3.74 circ=725) MONOCYTES ABSOLUTE COUNT (BEAKER) (test 1.61 K/ L 0.24-0.36 fhox=286) EOSINOPHILS ABSOLUTE COUNT (BEAKER) (test 0.05 K/ L 0.04-0.36 rpeu=135) BASOPHILS ABSOLUTE COUNT (BEAKER) (test 0.04 K/ L 0.01-0.08 ghyg=679) IMMATURE GRANULOCYTES-RELATIVE PERCENT (BEAKER) 0 % 0-1 (test zswx=0211) (MANUAL DIFFERENTIAL)2017-11-12 08:23:00 Test Item Value Reference Range Comments TOTAL COUNTED (BEAKER) (test oghk=3970) WBC MORPHOLOGY (BEAKER) (test fcyk=108) Normal LARGE PLT(BEAKER) (test jptp=5561) Present HYPOCHROMIA (BEAKER) (test lctf=098) 1+ few POLYCHROMATOPHILLIC RBCS(BEAKER) (test qnzy=430) 1+ few SICKLE CELLS (BEAKER) (test mojj=745) 1+ few TARGET CELLS (BEAKER) (test bwsa=043) 1+ few [id number] 08:11:00 Test Item Value Reference Range Comments PHOSPHORUS (BEAKER) (test jofa=170) 4.3 mg/dL 2.3-4.7 [id number] 08:11:00 Test Item Value Reference Range Comments MAGNESIUM (BEAKER) (test popk=328) 1.3 mg/dL 1.6-2.6 BASIC METABOLIC [id number] 08:11:00 Test Item Value Reference Range Comments SODIUM (BEAKER) (test 140 meq/L 136-145 zfiv=328) POTASSIUM (BEAKER) (test 3.4 meq/L 3.5-5.1 ptle=703) CHLORIDE (BEAKER) (test 103 meq/L 98-107 jhod=971) CO2 (BEAKER) (test 27 meq/L 22-29 kalo=017) BLOOD UREA NITROGEN 15 mg/dL 7-21 (BEAKER) (test adkc=889) CREATININE (BEAKER) (test 1.10 mg/dL 0.57-1.25 vrhz=166) GLUCOSE RANDOM (BEAKER) 91 mg/dL 70-105 (test ayzw=400) CALCIUM (BEAKER) (test 8.5 mg/dL 8.4-10.2 gpjm=853) EGFR (BEAKER) (test 67 mL/min/1.73 sq m ESTIMATED GFR IS NOT svxg=0169) ACCURATE CREATININE CLEARANCE IN PREDICTING GLOMERULAR FILTRATION RATE. ESTIMATED GFR IS NOT APPLICABLE FOR DIALYSIS PATIENTS. CALCIUM, [id number] 07:19:00 Test Item Value Reference Range Comments CALCIUM IONIZED (BEAKER) (test wylo=557) 0.98 mmol/L 1.12-1.27 PH, BLOOD (BEAKER) (test lmeo=2712) 7.39 BLOOD [id number] 00:00:00 Test Item Value Reference Range Comments CULTURE (BEAKER) (test sdac=6040) No growth in 5 days CBC W/PLT COUNT & AUTO [id number] 13:18:00 Test Item Value Reference Range Comments WHITE BLOOD CELL COUNT (BEAKER) (test maco=149) 20.7 K/ L 3.5-10.5 RED BLOOD CELL COUNT (BEAKER) (test caff=874) 2.12 M/ L 3.93-5.22 HEMOGLOBIN (BEAKER) (test yumg=782) 6.7 GM/DL 11.2-15.7 HEMATOCRIT (BEAKER) (test eviv=152) 20.4 % 34.1-44.9 MEAN CORPUSCULAR VOLUME (BEAKER) (test eels=888) 96.2 fL 79.4-94.8 MEAN CORPUSCULAR HEMOGLOBIN (BEAKER) (test 31.6 pg 25.6-32.2 dbxk=889) MEAN CORPUSCULAR HEMOGLOBIN CONC (BEAKER) (test 32.8 GM/DL 32.2-35.5 fuqk=030) RED CELL DISTRIBUTION WIDTH (BEAKER) (test 25.9 % 11.7-14.4 abpx=897) PLATELET COUNT (BEAKER) (test ohfs=223) 262 K/CU MM 150-450 MEAN PLATELET VOLUME (BEAKER) (test jzib=407) 11.2 fL 9.4-12.3 NUCLEATED RED BLOOD CELLS (BEAKER) (test 40 /100 WBC 0-0 tfat=827) NEUTROPHILS RELATIVE PERCENT (BEAKER) (test 76 % uxhd=712) LYMPHOCYTES RELATIVE PERCENT (BEAKER) (test 16 % xpbd=619) MONOCYTES RELATIVE PERCENT (BEAKER) (test 8 % eelx=460) EOSINOPHILS RELATIVE PERCENT (BEAKER) (test 0 % xwac=951) BASOPHILS RELATIVE PERCENT (BEAKER) (test 0 % izoa=902) NEUTROPHILS ABSOLUTE COUNT (BEAKER) (test 15.60 K/ L 1.56-6.13 qdbq=794) LYMPHOCYTES ABSOLUTE COUNT (BEAKER) (test 3.23 K/ L 1.18-3.74 xvko=784) MONOCYTES ABSOLUTE COUNT (BEAKER) (test 1.54 K/ L 0.24-0.36 zpxp=502) EOSINOPHILS ABSOLUTE COUNT (BEAKER) (test 0.02 K/ L 0.04-0.36 mqfm=619) BASOPHILS ABSOLUTE COUNT (BEAKER) (test 0.05 K/ L 0.01-0.08 elva=135) IMMATURE GRANULOCYTES-RELATIVE PERCENT (BEAKER) 1 % 0-1 (test zqdj=5935) (MANUAL DIFFERENTIAL)2017-11-11 13:18:00 Test Item Value Reference Range Comments TOTAL COUNTED (BEAKER) (test idyo=2007) WBC MORPHOLOGY (BEAKER) (test cbfc=415) Normal LARGE PLT(BEAKER) (test fzpe=4352) Present POLYCHROMATOPHILLIC RBCS(BEAKER) (test edkz=352) 1+ few SICKLE CELLS (BEAKER) (test exrj=624) 1+ few TARGET CELLS (BEAKER) (test fbzf=974) 1+ few [id number] 08:05:00 Test Item Value Reference Range Comments PHOSPHORUS (BEAKER) (test moib=537) 5.0 mg/dL 2.3-4.7 [id number] 08:05:00 Test Item Value Reference Range Comments MAGNESIUM (BEAKER) (test mflf=157) 1.6 mg/dL 1.6-2.6 BASIC METABOLIC [id number] 08:05:00 Test Item Value Reference Range Comments SODIUM (BEAKER) (test 140 meq/L 136-145 dcvd=316) POTASSIUM (BEAKER) (test 3.7 meq/L 3.5-5.1 sdqu=658) CHLORIDE (BEAKER) (test 107 meq/L 98-107 knvt=482) CO2 (BEAKER) (test 24 meq/L 22-29 dgrz=054) BLOOD UREA NITROGEN 19 mg/dL 7-21 (BEAKER) (test cqvf=318) CREATININE (BEAKER) (test 1.23 mg/dL 0.57-1.25 rsdf=920) GLUCOSE RANDOM (BEAKER) 96 mg/dL 70-105 (test pktg=209) CALCIUM (BEAKER) (test 8.5 mg/dL 8.4-10.2 prmp=614) EGFR (BEAKER) (test 59 mL/min/1.73 sq m ESTIMATED GFR IS NOT gfvt=0940) ACCURATE CREATININE CLEARANCE IN PREDICTING GLOMERULAR FILTRATION RATE. ESTIMATED GFR IS NOT APPLICABLE FOR DIALYSIS PATIENTS. CALCIUM, [id number] 06:38:00 Test Item Value Reference Range Comments CALCIUM IONIZED (BEAKER) (test kbgp=777) 1.07 mmol/L 1.12-1.27 PH, BLOOD (BEAKER) (test kbbc=8024) 7.31 CBC W/PLT COUNT & AUTO [id number] 14:53:00 Test Item Value Reference Range Comments WHITE BLOOD CELL COUNT (BEAKER) (test zrfq=510) 21.8 K/ L 3.5-10.5 RED BLOOD CELL COUNT (BEAKER) (test iwjv=971) 2.17 M/ L 3.93-5.22 HEMOGLOBIN (BEAKER) (test mcjd=786) 6.8 GM/DL 11.2-15.7 HEMATOCRIT (BEAKER) (test annj=419) 21.3 % 34.1-44.9 MEAN CORPUSCULAR VOLUME (BEAKER) (test zsgr=781) 98.2 fL 79.4-94.8 MEAN CORPUSCULAR HEMOGLOBIN (BEAKER) (test 31.3 pg 25.6-32.2 miiv=199) MEAN CORPUSCULAR HEMOGLOBIN CONC (BEAKER) (test 31.9 GM/DL 32.2-35.5 nsev=018) RED CELL DISTRIBUTION WIDTH (BEAKER) (test 27.6 % 11.7-14.4 dlgp=352) PLATELET COUNT (BEAKER) (test tkmu=937) 244 K/CU MM 150-450 MEAN PLATELET VOLUME (BEAKER) (test zaan=209) 11.4 fL 9.4-12.3 NUCLEATED RED BLOOD CELLS (BEAKER) (test 80 /100 WBC 0-0 tbjb=658) NEUTROPHILS RELATIVE PERCENT (BEAKER) (test 82 % wyuc=604) LYMPHOCYTES RELATIVE PERCENT (BEAKER) (test 7 % urel=475) MONOCYTES RELATIVE PERCENT (BEAKER) (test 10 % nily=385) EOSINOPHILS RELATIVE PERCENT (BEAKER) (test 0 % anps=620) BASOPHILS RELATIVE PERCENT (BEAKER) (test 0 % usva=126) NEUTROPHILS ABSOLUTE COUNT (BEAKER) (test 17.85 K/ L 1.56-6.13 phvt=902) LYMPHOCYTES ABSOLUTE COUNT (BEAKER) (test 1.60 K/ L 1.18-3.74 rnnd=328) MONOCYTES ABSOLUTE COUNT (BEAKER) (test 2.14 K/ L 0.24-0.36 jacs=067) EOSINOPHILS ABSOLUTE COUNT (BEAKER) (test 0.03 K/ L 0.04-0.36 fjqv=673) BASOPHILS ABSOLUTE COUNT (BEAKER) (test 0.03 K/ L 0.01-0.08 ffyo=867) IMMATURE GRANULOCYTES-RELATIVE PERCENT (BEAKER) 1 % 0-1 (test zdgp=2214) (MANUAL DIFFERENTIAL)2017-11-10 14:53:00 Test Item Value Reference Range Comments TOTAL COUNTED (BEAKER) (test eoep=7217) WBC MORPHOLOGY (BEAKER) (test ecqa=890) Normal LARGE PLT(BEAKER) (test ulqg=6621) Present SCHISTOCYTES (BEAKER) (test datm=857) 1+ few ACANTHOCYTES (BEAKER) (test hxfk=167) 1+ few ANISOCYTOSIS (BEAKER) (test tpks=594) 2+ moderate HYPOCHROMIA (BEAKER) (test uwzh=315) 2+ moderate MACROCYTES (BEAKER) (test qwhb=726) 3+ many MICROCYTES (BEAKER) (test pthd=531) 2+ moderate OVALOCYTES (BEAKER) (test weaf=844) 1+ few POIKILOCYTES (BEAKER) (test lgvr=884) 3+ many POLYCHROMATOPHILLIC RBCS(BEAKER) (test wgdh=704) 2+ moderate SICKLE CELLS (BEAKER) (test sxei=834) 2+ moderate TARGET CELLS (BEAKER) (test hxpp=445) 1+ few BASIC METABOLIC [id number] 08:54:00 Test Item Value Reference Range Comments SODIUM (BEAKER) (test 140 meq/L 136-145 pkbw=319) POTASSIUM (BEAKER) (test 4.0 meq/L 3.5-5.1 ktck=764) CHLORIDE (BEAKER) (test 109 meq/L 98-107 ldyn=346) CO2 (BEAKER) (test 19 meq/L 22-29 tqvh=983) BLOOD UREA NITROGEN 21 mg/dL 7-21 (BEAKER) (test vbej=820) CREATININE (BEAKER) (test 1.27 mg/dL 0.57-1.25 oywh=889) GLUCOSE RANDOM (BEAKER) 122 mg/dL 70-105 (test ygce=194) CALCIUM (BEAKER) (test 8.6 mg/dL 8.4-10.2 etdd=955) EGFR (BEAKER) (test 57 mL/min/1.73 sq m ESTIMATED GFR IS NOT fwid=9556) ACCURATE CREATININE CLEARANCE IN PREDICTING GLOMERULAR FILTRATION RATE. ESTIMATED GFR IS NOT APPLICABLE FOR DIALYSIS PATIENTS. [id number] 08:54:00 Test Item Value Reference Range Comments MAGNESIUM (BEAKER) (test rhow=068) 1.5 mg/dL 1.6-2.6 [id number] 08:54:00 Test Item Value Reference Range Comments PHOSPHORUS (BEAKER) (test arqo=493) 4.5 mg/dL 2.3-4.7 COMPREHENSIVE METABOLIC [id number] 08:54:00 Test Item Value Reference Range Comments TOTAL PROTEIN (BEAKER) 8.2 gm/dL 6.0-8.3 (test wacv=665) ALBUMIN (BEAKER) (test 3.1 g/dL 3.5-5.0 hyfz=1118) ALKALINE PHOSPHATASE 154 U/L 40-150 (BEAKER) (test hbbx=176) BILIRUBIN TOTAL (BEAKER) 1.4 mg/dL 0.2-1.2 (test pkhq=689) SODIUM (BEAKER) (test 140 meq/L 136-145 qrvd=215) POTASSIUM (BEAKER) (test 4.0 meq/L 3.5-5.1 ewwg=943) CHLORIDE (BEAKER) (test 109 meq/L 98-107 iilr=597) CO2 (BEAKER) (test 19 meq/L 22-29 dkny=405) BLOOD UREA NITROGEN 21 mg/dL 7-21 (BEAKER) (test oeyf=069) CREATININE (BEAKER) (test 1.27 mg/dL 0.57-1.25 xckt=337) GLUCOSE RANDOM (BEAKER) 122 mg/dL 70-105 (test ljpp=722) CALCIUM (BEAKER) (test 8.6 mg/dL 8.4-10.2 gbqe=060) AST (SGOT) (BEAKER) (test 72 U/L 5-34 chvd=193) ALT (SGPT) (BEAKER) (test 50 U/L 6-55 xosp=781) EGFR (BEAKER) (test 57 mL/min/1.73 sq m ESTIMATED GFR IS NOT elkq=4813) ACCURATE CREATININE CLEARANCE IN PREDICTING GLOMERULAR FILTRATION RATE. ESTIMATED GFR IS NOT APPLICABLE FOR DIALYSIS PATIENTS. CALCIUM, [id number] 07:21:00 Test Item Value Reference Range Comments CALCIUM IONIZED (BEAKER) (test afpy=461) 1.04 mmol/L 1.12-1.27 PH, BLOOD (BEAKER) (test tqxi=8412) 7.39 CBC W/PLT COUNT & AUTO [id number] 12:10:00 Test Item Value Reference Range Comments WHITE BLOOD CELL COUNT (BEAKER) (test pdgw=091) 20.8 K/ L 3.5-10.5 RED BLOOD CELL COUNT (BEAKER) (test ljys=443) 2.11 M/ L 3.93-5.22 HEMOGLOBIN (BEAKER) (test tqjj=309) 6.6 GM/DL 11.2-15.7 HEMATOCRIT (BEAKER) (test guso=754) 20.4 % 34.1-44.9 MEAN CORPUSCULAR VOLUME (BEAKER) (test jccj=025) 96.7 fL 79.4-94.8 MEAN CORPUSCULAR HEMOGLOBIN (BEAKER) (test 31.3 pg 25.6-32.2 wnts=135) MEAN CORPUSCULAR HEMOGLOBIN CONC (BEAKER) (test 32.4 GM/DL 32.2-35.5 tapr=937) RED CELL DISTRIBUTION WIDTH (BEAKER) (test 27.2 % 11.7-14.4 eson=229) PLATELET COUNT (BEAKER) (test ymko=615) 237 K/CU MM 150-450 MEAN PLATELET VOLUME (BEAKER) (test uuwk=904) 10.7 fL 9.4-12.3 NUCLEATED RED BLOOD CELLS (BEAKER) (test 98 /100 WBC 0-0 hmbt=522) NEUTROPHILS RELATIVE PERCENT (BEAKER) (test 82 % clyl=064) LYMPHOCYTES RELATIVE PERCENT (BEAKER) (test 6 % gfym=832) MONOCYTES RELATIVE PERCENT (BEAKER) (test 11 % xxoo=222) EOSINOPHILS RELATIVE PERCENT (BEAKER) (test 0 % xlgr=394) BASOPHILS RELATIVE PERCENT (BEAKER) (test 0 % gldi=590) NEUTROPHILS ABSOLUTE COUNT (BEAKER) (test 16.91 K/ L 1.56-6.13 ltpc=847) LYMPHOCYTES ABSOLUTE COUNT (BEAKER) (test 1.31 K/ L 1.18-3.74 jvup=776) MONOCYTES ABSOLUTE COUNT (BEAKER) (test 2.37 K/ L 0.24-0.36 edch=859) EOSINOPHILS ABSOLUTE COUNT (BEAKER) (test 0.01 K/ L 0.04-0.36 bxwk=853) BASOPHILS ABSOLUTE COUNT (BEAKER) (test 0.05 K/ L 0.01-0.08 yjgl=351) IMMATURE GRANULOCYTES-RELATIVE PERCENT (BEAKER) 1 % 0-1 (test wyhv=1304) (MANUAL DIFFERENTIAL)2017-11-09 12:10:00 Test Item Value Reference Range Comments TOTAL COUNTED (BEAKER) (test pelu=1829) WBC MORPHOLOGY (BEAKER) (test qnku=142) Normal PLT MORPHOLOGY (BEAKER) (test wxtx=909) Normal ANISOCYTOSIS (BEAKER) (test ggeb=120) 2+ moderate MATTHEWS-JOLLY BODIES (BEAKER) (test zgln=761) 1+ few POIKILOCYTES (BEAKER) (test meod=481) 2+ moderate POLYCHROMATOPHILLIC RBCS(BEAKER) (test oawz=536) 1+ few SICKLE CELLS (BEAKER) (test cluh=955) 2+ moderate TARGET CELLS (BEAKER) (test fvqb=229) 1+ few CALCIUM, [id number] 07:44:00 Test Item Value Reference Range Comments CALCIUM IONIZED (BEAKER) (test yrqf=050) 1.16 mmol/L 1.12-1.27 PH, BLOOD (BEAKER) (test qhjb=2271) 7.25 B-TYPE NATRIURETIC FACTOR (BNP)2017-11-09 07:43:00 Test Item Value Reference Range Comments B-TYPE NATRIURETIC PEPTIDE (BEAKER) (test 903 pg/mL 0-100 qnln=240) [id number] 07:27:00 Test Item Value Reference Range Comments PHOSPHORUS (BEAKER) (test mzfl=065) 4.4 mg/dL 2.3-4.7 [id number] 07:27:00 Test Item Value Reference Range Comments MAGNESIUM (BEAKER) (test xiwl=032) 1.7 mg/dL 1.6-2.6 COMPREHENSIVE METABOLIC [id number] 07:27:00 Test Item Value Reference Range Comments TOTAL PROTEIN (BEAKER) 7.8 gm/dL 6.0-8.3 (test acbx=362) ALBUMIN (BEAKER) (test 3.2 g/dL 3.5-5.0 zovn=2294) ALKALINE PHOSPHATASE 165 U/L 40-150 (BEAKER) (test zgrw=838) BILIRUBIN TOTAL (BEAKER) 1.3 mg/dL 0.2-1.2 (test tcvq=628) SODIUM (BEAKER) (test 143 meq/L 136-145 rzlb=044) POTASSIUM (BEAKER) (test 4.2 meq/L 3.5-5.1 tkyr=273) CHLORIDE (BEAKER) (test 112 meq/L 98-107 myut=716) CO2 (BEAKER) (test 23 meq/L 22-29 uzfe=701) BLOOD UREA NITROGEN 29 mg/dL 7-21 (BEAKER) (test tbvd=072) CREATININE (BEAKER) (test 1.54 mg/dL 0.57-1.25 jnbb=802) GLUCOSE RANDOM (BEAKER) 108 mg/dL 70-105 (test lxnu=068) CALCIUM (BEAKER) (test 9.1 mg/dL 8.4-10.2 umfg=693) AST (SGOT) (BEAKER) (test 110 U/L 5-34 qolo=764) ALT (SGPT) (BEAKER) (test 64 U/L 6-55 alga=376) EGFR (BEAKER) (test 46 mL/min/1.73 sq m ESTIMATED GFR IS NOT kqas=4100) ACCURATE CREATININE CLEARANCE IN PREDICTING GLOMERULAR FILTRATION RATE. ESTIMATED GFR IS NOT APPLICABLE FOR DIALYSIS PATIENTS. BASIC METABOLIC [id number] 07:27:00 Test Item Value Reference Range Comments SODIUM (BEAKER) (test 143 meq/L 136-145 vgfy=808) POTASSIUM (BEAKER) (test 4.2 meq/L 3.5-5.1 vrgn=231) CHLORIDE (BEAKER) (test 112 meq/L 98-107 zifa=954) CO2 (BEAKER) (test 23 meq/L 22-29 fzyu=897) BLOOD UREA NITROGEN 29 mg/dL 7-21 (BEAKER) (test wfkm=605) CREATININE (BEAKER) (test 1.54 mg/dL 0.57-1.25 setl=020) GLUCOSE RANDOM (BEAKER) 108 mg/dL 70-105 (test jlqp=693) CALCIUM (BEAKER) (test 9.1 mg/dL 8.4-10.2 wimp=888) EGFR (BEAKER) (test 46 mL/min/1.73 sq m ESTIMATED GFR IS NOT ostw=7408) ACCURATE CREATININE CLEARANCE IN PREDICTING GLOMERULAR FILTRATION RATE. ESTIMATED GFR IS NOT APPLICABLE FOR DIALYSIS PATIENTS. RAD, CHEST, 1 VIEW, NON [id number] 20:41:00Reason for exam:->edemaShould this be performed at [...] MDReport Verified Date/Time: 11/08/2017 20:41:24 Reading Location: [address] Reading Room Electronically signed by: CLIFF SALCIDO M.D. on 08:41 PMEOSINOPHIL SMEAR, [id number] 12:49:00 Test Item Value Reference Range Comments EOSINOPHIL SMEAR, URINE (BEAKER) (test No EOS seen No EOS seen cuuz=0822) CBC W/PLT COUNT & AUTO [id number] 10:40:00 Test Item Value Reference Range Comments WHITE BLOOD CELL COUNT (BEAKER) (test mvxh=692) 18.6 K/ L 3.5-10.5 RED BLOOD CELL COUNT (BEAKER) (test rkyo=006) 2.21 M/ L 3.93-5.22 HEMOGLOBIN (BEAKER) (test obgs=454) 6.8 GM/DL 11.2-15.7 HEMATOCRIT (BEAKER) (test uicq=662) 20.6 % 34.1-44.9 MEAN CORPUSCULAR VOLUME (BEAKER) (test pdbj=276) 93.2 fL 79.4-94.8 MEAN CORPUSCULAR HEMOGLOBIN (BEAKER) (test 30.8 pg 25.6-32.2 ainm=067) MEAN CORPUSCULAR HEMOGLOBIN CONC (BEAKER) (test 33.0 GM/DL 32.2-35.5 vwyu=025) RED CELL DISTRIBUTION WIDTH (BEAKER) (test 25.5 % 11.7-14.4 prei=167) PLATELET COUNT (BEAKER) (test tqko=579) 255 K/CU MM 150-450 MEAN PLATELET VOLUME (BEAKER) (test ewfy=259) 10.6 fL 9.4-12.3 NUCLEATED RED BLOOD CELLS (BEAKER) (test 87 /100 WBC 0-0 eala=686) NEUTROPHILS RELATIVE PERCENT (BEAKER) (test 70 % decb=624) LYMPHOCYTES RELATIVE PERCENT (BEAKER) (test 14 % gppd=443) MONOCYTES RELATIVE PERCENT (BEAKER) (test 14 % nzpm=427) EOSINOPHILS RELATIVE PERCENT (BEAKER) (test 0 % vacy=445) BASOPHILS RELATIVE PERCENT (BEAKER) (test 0 % bmqi=457) NEUTROPHILS ABSOLUTE COUNT (BEAKER) (test 12.98 K/ L 1.56-6.13 wany=528) LYMPHOCYTES ABSOLUTE COUNT (BEAKER) (test 2.67 K/ L 1.18-3.74 lgsu=307) MONOCYTES ABSOLUTE COUNT (BEAKER) (test 2.65 K/ L 0.24-0.36 hqgf=629) EOSINOPHILS ABSOLUTE COUNT (BEAKER) (test 0.07 K/ L 0.04-0.36 aivv=308) BASOPHILS ABSOLUTE COUNT (BEAKER) (test 0.05 K/ L 0.01-0.08 mpnz=629) IMMATURE GRANULOCYTES-RELATIVE PERCENT (BEAKER) 1 % 0-1 (test bqoo=7129) (MANUAL DIFFERENTIAL)2017-11-08 10:40:00 Test Item Value Reference Range Comments TOTAL COUNTED (BEAKER) (test qepu=8867) WBC MORPHOLOGY (BEAKER) (test xrqd=981) Normal LARGE PLT(BEAKER) (test pcvh=1116) Present POLYCHROMATOPHILLIC RBCS(BEAKER) (test wpuh=770) 2+ moderate SICKLE CELLS (BEAKER) (test gjnf=280) 3+ many TARGET CELLS (BEAKER) (test mcmo=456) 1+ few CT, [id number] 08:29:00FINAL REPORT HISTORY : Abdominal pain, unspecified [...] Verified Date/Time: 11/08/2017 08:29:54 Reading Location: [facility] Reading Room - [place] [address] Electronically signed by: DAMI QUICK M.D. on11/08/2017 08:29 AMBASIC METABOLIC [id number] 08:14:00 Test Item Value Reference Range Comments SODIUM (BEAKER) (test 141 meq/L 136-145 lraa=031) POTASSIUM (BEAKER) (test 4.4 meq/L 3.5-5.1 tlad=356) CHLORIDE (BEAKER) (test 111 meq/L 98-107 awnn=779) CO2 (BEAKER) (test 17 meq/L 22-29 jqye=127) BLOOD UREA NITROGEN 37 mg/dL 7-21 (BEAKER) (test lbcv=116) CREATININE (BEAKER) (test 2.07 mg/dL 0.57-1.25 nssv=504) GLUCOSE RANDOM (BEAKER) 101 mg/dL 70-105 (test nbpr=883) CALCIUM (BEAKER) (test 8.9 mg/dL 8.4-10.2 okqy=568) EGFR (BEAKER) (test 32 mL/min/1.73 sq m ESTIMATED GFR IS NOT clmq=4956) ACCURATE CREATININE CLEARANCE IN PREDICTING GLOMERULAR FILTRATION RATE. ESTIMATED GFR IS NOT APPLICABLE FOR DIALYSIS PATIENTS. COMPREHENSIVE METABOLIC [id number] 08:14:00 Test Item Value Reference Range Comments TOTAL PROTEIN (BEAKER) 8.6 gm/dL 6.0-8.3 (test oglv=445) ALBUMIN (BEAKER) (test 3.4 g/dL 3.5-5.0 rsvk=4716) ALKALINE PHOSPHATASE 155 U/L 40-150 (BEAKER) (test gaov=089) BILIRUBIN TOTAL (BEAKER) 1.7 mg/dL 0.2-1.2 (test ters=582) SODIUM (BEAKER) (test 141 meq/L 136-145 soag=487) POTASSIUM (BEAKER) (test 4.4 meq/L 3.5-5.1 jeyw=255) CHLORIDE (BEAKER) (test 111 meq/L 98-107 oweb=254) CO2 (BEAKER) (test 17 meq/L 22-29 mpvz=397) BLOOD UREA NITROGEN 37 mg/dL 7-21 (BEAKER) (test osrq=516) CREATININE (BEAKER) (test 2.07 mg/dL 0.57-1.25 wgrd=479) GLUCOSE RANDOM (BEAKER) 101 mg/dL 70-105 (test ljte=519) CALCIUM (BEAKER) (test 8.9 mg/dL 8.4-10.2 asfr=061) AST (SGOT) (BEAKER) (test 144 U/L 5-34 ijdu=829) ALT (SGPT) (BEAKER) (test 70 U/L 6-55 yqyr=487) EGFR (BEAKER) (test 32 mL/min/1.73 sq m ESTIMATED GFR IS NOT ppyg=3357) ACCURATE CREATININE CLEARANCE IN PREDICTING GLOMERULAR FILTRATION RATE. ESTIMATED GFR IS NOT APPLICABLE FOR DIALYSIS PATIENTS. PROTEIN, RANDOM [id number] 07:49:00 Test Item Value Reference Range Comments PROTEIN, URINE (BEAKER) (test xkxa=2155) 24 mg/dL 0-14 CREATININE, RANDOM [id number] 07:47:00 Test Item Value Reference Range Comments CREATININE URINE (BEAKER) (test tmke=149) 46.0 mg/dL Reference Range: No NormalsSODIUM, RANDOM [id number] 07:47:00 Test Item Value Reference Range Comments SODIUM URINE (BEAKER) (test fjng=149) 65 meq/L Reference Range: No NormalsU/S, ABDOMINAL, [id number] 19:58:00Reason for exam:->GRAYSON, abdominal painShould this be [...] [place] Verified Date/Time: 11/07/2017 19:58:17 Reading Location: [address] Consult Reading Room LACTIC ACID, VENOUS, WHOLE [id number] 16:11:00 Test Item Value Reference Range Comments LACTATE BLOOD VENOUS (2) 0.9 mmol/L 0.5-2.2 Specimen slightly hemolyzed (BEAKER) (test wvyc=5152) Effective 12/22/2015: Units/Reference Range ChangeNew: 0.5-2.2 mmol/L Previous: 5 -20 mg/dLCBC W/PLT COUNT & AUTO [id number] 10:20:00 Test Item Value Reference Range Comments WHITE BLOOD CELL COUNT (BEAKER) (test hrdb=027) 23.2 K/ L 3.5-10.5 RED BLOOD CELL COUNT (BEAKER) (test ebxm=207) 1.84 M/ L 3.93-5.22 HEMOGLOBIN (BEAKER) (test ndhn=197) 5.8 GM/DL 11.2-15.7 HEMATOCRIT (BEAKER) (test xwco=951) 17.3 % 34.1-44.9 MEAN CORPUSCULAR VOLUME (BEAKER) (test hfxm=169) 94.0 fL 79.4-94.8 MEAN CORPUSCULAR HEMOGLOBIN (BEAKER) (test 31.5 pg 25.6-32.2 csmo=535) MEAN CORPUSCULAR HEMOGLOBIN CONC (BEAKER) (test 33.5 GM/DL 32.2-35.5 xros=778) RED CELL DISTRIBUTION WIDTH (BEAKER) (test 24.1 % 11.7-14.4 wmyg=304) PLATELET COUNT (BEAKER) (test ykup=307) 249 K/CU MM 150-450 MEAN PLATELET VOLUME (BEAKER) (test bktg=217) 10.8 fL 9.4-12.3 NUCLEATED RED BLOOD CELLS (BEAKER) (test 48 /100 WBC 0-0 feoz=064) IMMATURE GRANULOCYTES-RELATIVE PERCENT (BEAKER) 2 % 0-1 (test yqul=7769) (MANUAL DIFFERENTIAL)2017-11-07 10:20:00 Test Item Value Reference Range Comments NEUTROPHILS - REL (DIFF) (BEAKER) (test 68 % qgsi=2284) LYMPHOCYTES - REL (DIFF) (BEAKER) (test 27 % nsjg=8080) MONOCYTES - REL (DIFF) (BEAKER) (test ggnz=2156) 5 % EOSINOPHILS - REL (DIFF) (BEAKER) (test 0 % hzln=4399) BASOPHILS - REL (DIFF) (BEAKER) (test xlvf=1906) 0 % NEUTROPHILS - ABS (DIFF) (BEAKER) (test 15.78 K/ L 1.80-8.00 nrzq=5065) LYMPHOCYTES - ABS (DIFF) (BEAKER) (test 6.26 K/ L 1.48-4.50 ntsh=7444) MONOCYTES - ABS (DIFF) (BEAKER) (test tpjq=2410) 1.16 K/ L 0.00-1.30 EOSINOPHILS - ABS (DIFF) (BEAKER) (test 0.00 K/ L 0.00-0.50 dngz=5104) BASOPHILS - ABS (DIFF) (BEAKER) (test etfu=4508) 0.00 K/ L 0.00-0.20 TOTAL COUNTED (BEAKER) (test sauo=7008) 100 MANUAL NRBC PER 100 CELLS (BEAKER) (test 51 /100 WBC 0-0 tfyg=6729) WBC MORPHOLOGY (BEAKER) (test ykwz=337) Normal PLT MORPHOLOGY (BEAKER) (test biuu=007) Normal ANISOCYTOSIS (BEAKER) (test szcs=675) 3+ many POLYCHROMATOPHILLIC RBCS(BEAKER) (test itfq=953) 2+ moderate SICKLE CELLS (BEAKER) (test npky=712) 3+ many TARGET CELLS (BEAKER) (test orwd=404) 1+ few BASIC METABOLIC [id number] 06:28:00 Test Item Value Reference Range Comments SODIUM (BEAKER) (test 132 meq/L 136-145 xanj=182) POTASSIUM (BEAKER) (test 4.4 meq/L 3.5-5.1 ojmd=037) CHLORIDE (BEAKER) (test 109 meq/L 98-107 crnn=796) CO2 (BEAKER) (test 20 meq/L 22-29 igro=889) BLOOD UREA NITROGEN 39 mg/dL 7-21 (BEAKER) (test dkut=885) CREATININE (BEAKER) (test 2.20 mg/dL 0.57-1.25 inxb=809) GLUCOSE RANDOM (BEAKER) 123 mg/dL 70-105 (test pgdb=879) CALCIUM (BEAKER) (test 8.7 mg/dL 8.4-10.2 ffez=215) EGFR (BEAKER) (test 30 mL/min/1.73 sq m ESTIMATED GFR IS NOT fsfy=5875) ACCURATE CREATININE CLEARANCE IN PREDICTING GLOMERULAR FILTRATION RATE. ESTIMATED GFR IS NOT APPLICABLE FOR DIALYSIS PATIENTS. COMPREHENSIVE METABOLIC [id number] 18:37:00 Test Item Value Reference Range Comments TOTAL PROTEIN (BEAKER) 8.5 gm/dL 6.0-8.3 (test phlv=242) ALBUMIN (BEAKER) (test 3.4 g/dL 3.5-5.0 azsm=2000) ALKALINE PHOSPHATASE 166 U/L 40-150 (BEAKER) (test dmzg=290) BILIRUBIN TOTAL (BEAKER) 4.0 mg/dL 0.2-1.2 (test ggju=302) SODIUM (BEAKER) (test 142 meq/L 136-145 oinn=125) POTASSIUM (BEAKER) (test 4.7 meq/L 3.5-5.1 dcgb=946) CHLORIDE (BEAKER) (test 110 meq/L 98-107 mzzt=732) CO2 (BEAKER) (test 22 meq/L 22-29 pcts=164) BLOOD UREA NITROGEN 35 mg/dL 7-21 (BEAKER) (test hvju=171) CREATININE (BEAKER) (test 1.97 mg/dL 0.57-1.25 qkeu=742) GLUCOSE RANDOM (BEAKER) 119 mg/dL 70-105 (test qtvb=491) CALCIUM (BEAKER) (test 8.5 mg/dL 8.4-10.2 orzv=869) AST (SGOT) (BEAKER) (test 278 U/L 5-34 vmiu=032) ALT (SGPT) (BEAKER) (test 92 U/L 6-55 hfca=935) EGFR (BEAKER) (test 34 mL/min/1.73 sq m ESTIMATED GFR IS NOT lypw=0490) ACCURATE CREATININE CLEARANCE IN PREDICTING GLOMERULAR FILTRATION RATE. ESTIMATED GFR IS NOT APPLICABLE FOR DIALYSIS PATIENTS. Specimen slightly ictericCBC W/PLT COUNT & AUTO [id number] 14:59 :00 Test Item Value Reference Range Comments WHITE BLOOD CELL COUNT (BEAKER) (test oxfr=119) 24.3 K/ L 3.5-10.5 RED BLOOD CELL COUNT (BEAKER) (test jsja=868) 1.73 M/ L 3.93-5.22 HEMOGLOBIN (BEAKER) (test xvfr=868) 5.5 GM/DL 11.2-15.7 HEMATOCRIT (BEAKER) (test qekk=624) 16.7 % 34.1-44.9 MEAN CORPUSCULAR VOLUME (BEAKER) (test tzgt=082) 96.5 fL 79.4-94.8 MEAN CORPUSCULAR HEMOGLOBIN (BEAKER) (test 31.8 pg 25.6-32.2 phzd=032) MEAN CORPUSCULAR HEMOGLOBIN CONC (BEAKER) (test 32.9 GM/DL 32.2-35.5 xbwk=291) RED CELL DISTRIBUTION WIDTH (BEAKER) (test 25.8 % 11.7-14.4 tlfp=023) PLATELET COUNT (BEAKER) (test detl=780) 259 K/CU MM 150-450 MEAN PLATELET VOLUME (BEAKER) (test fwgb=108) 11.1 fL 9.4-12.3 NUCLEATED RED BLOOD CELLS (BEAKER) (test 29 /100 WBC 0-0 ftic=882) IMMATURE GRANULOCYTES-RELATIVE PERCENT (BEAKER) 2 % 0-1 (test yqrd=6122) (MANUAL DIFFERENTIAL)2017-11-06 14:59:00 Test Item Value Reference Range Comments NEUTROPHILS - REL (DIFF) (BEAKER) (test 65 % bbia=3268) LYMPHOCYTES - REL (DIFF) (BEAKER) (test 26 % zoip=7678) MONOCYTES - REL (DIFF) (BEAKER) (test uigl=4348) 8 % MYELOCYTES-REL (DIFF) (BEAKER) (test qguk=9904) 1 % 0-0 NEUTROPHILS - ABS (DIFF) (BEAKER) (test 15.80 K/ L 1.80-8.00 wuwr=2179) LYMPHOCYTES - ABS (DIFF) (BEAKER) (test 6.32 K/ L 1.48-4.50 qbuv=1185) MONOCYTES - ABS (DIFF) (BEAKER) (test liai=3575) 1.94 K/ L 0.00-1.30 MYELOCYTES-ABS (DIFF) (BEAKER) (test ycwt=4960) 0.24 K/ L 0.00-0.00 TOTAL COUNTED (BEAKER) (test ewjc=8380) 100 MANUAL NRBC PER 100 CELLS (BEAKER) (test 34 /100 WBC 0-0 wuyn=8146) WBC MORPHOLOGY (BEAKER) (test zeoz=107) Normal PLT MORPHOLOGY (BEAKER) (test nyhj=143) Normal ANISOCYTOSIS (BEAKER) (test krpx=538) 3+ many MATTHEWS-JOLLY BODIES (BEAKER) (test ctzy=987) Present POIKILOCYTES (BEAKER) (test ivyt=849) 1+ few POLYCHROMATOPHILLIC RBCS(BEAKER) (test firy=642) 2+ moderate SICKLE CELLS (BEAKER) (test bzvx=415) 3+ many BASIC METABOLIC [id number] 09:37:00 Test Item Value Reference Range Comments SODIUM (BEAKER) (test 139 meq/L 136-145 fbep=526) POTASSIUM (BEAKER) (test 4.5 meq/L 3.5-5.1 veke=360) CHLORIDE (BEAKER) (test 107 meq/L 98-107 bfrh=248) CO2 (BEAKER) (test 19 meq/L 22-29 cocu=597) BLOOD UREA NITROGEN 27 mg/dL 7-21 (BEAKER) (test ynyh=935) CREATININE (BEAKER) (test 1.37 mg/dL 0.57-1.25 syrs=536) GLUCOSE RANDOM (BEAKER) 124 mg/dL 70-105 (test thpe=424) CALCIUM (BEAKER) (test 8.2 mg/dL 8.4-10.2 ibgq=263) EGFR (BEAKER) (test 52 mL/min/1.73 sq m ESTIMATED GFR IS NOT jnnf=8310) ACCURATE CREATININE CLEARANCE IN PREDICTING GLOMERULAR FILTRATION RATE. ESTIMATED GFR IS NOT APPLICABLE FOR DIALYSIS PATIENTS. Specimen slightly ictericURINALYSIS W/ [id number] 06:22:00 Test Item Value Reference Range Comments COLOR (BEAKER) (test llta=611) Brown CLARITY (BEAKER) (test zijb=420) Cloudy SPECIFIC GRAVITY UA (BEAKER) (test 1.015 1.001-1.035 ozmt=281) PH UA (BEAKER) (test fcsb=737) 5.5 5.0-8.0 PROTEIN UA (BEAKER) (test isjj=632) 100 mg/dL Negative GLUCOSE UA (BEAKER) (test izcf=675) Negative Negative KETONES UA (BEAKER) (test wycw=295) Negative Negative BILIRUBIN UA (BEAKER) (test lbcz=582) Positive Negative BLOOD UA (BEAKER) (test cyqk=110) Large Negative NITRITE UA (BEAKER) (test jvpi=925) Negative Negative LEUKOCYTE ESTERASE UA (BEAKER) (test Trace Negative mpjr=559) UROBILINOGEN UA (BEAKER) (test xzxt=421) 4.0 mg/dL 0.2-1.0 RBC UA (BEAKER) (test ruzo=777) 0 /HPF WBC UA (BEAKER) (test cnfy=004) 27 /HPF MUCUS (BEAKER) (test mcts=8045) Few SQUAMOUS EPITHELIAL (BEAKER) (test 11 /HPF ikch=861) SOURCE(BEAKER) (test kghi=9683) Urine, Clean Catch BASIC METABOLIC [id number] 10:56:00 Test Item Value Reference Range Comments SODIUM (BEAKER) (test 139 meq/L 136-145 bqpe=092) POTASSIUM (BEAKER) (test 4.2 meq/L 3.5-5.1 xfpa=449) CHLORIDE (BEAKER) (test 104 meq/L 98-107 jgiu=437) CO2 (BEAKER) (test 23 meq/L 22-29 ysfq=923) BLOOD UREA NITROGEN 9 mg/dL 7-21 (BEAKER) (test nlvi=200) CREATININE (BEAKER) (test 0.66 mg/dL 0.57-1.25 tbrw=040) GLUCOSE RANDOM (BEAKER) 109 mg/dL 70-105 (test sirs=059) CALCIUM (BEAKER) (test 8.6 mg/dL 8.4-10.2 igtk=736) EGFR (BEAKER) (test 121 mL/min/1.73 sq m ESTIMATED GFR IS NOT ulxh=6242) ACCURATE CREATININE CLEARANCE IN PREDICTING GLOMERULAR FILTRATION RATE. ESTIMATED GFR IS NOT APPLICABLE FOR DIALYSIS PATIENTS. Specimen slightly ictericCBC W/PLT COUNT & AUTO [id number] 09:17 :00 Test Item Value Reference Range Comments WHITE BLOOD CELL COUNT (BEAKER) (test iguv=344) 18.2 K/ L 3.5-10.5 RED BLOOD CELL COUNT (BEAKER) (test mkvb=967) 2.05 M/ L 3.93-5.22 HEMOGLOBIN (BEAKER) (test eueq=576) 6.4 GM/DL 11.2-15.7 HEMATOCRIT (BEAKER) (test lgaw=151) 19.9 % 34.1-44.9 MEAN CORPUSCULAR VOLUME (BEAKER) (test ihdh=921) 97.1 fL 79.4-94.8 MEAN CORPUSCULAR HEMOGLOBIN (BEAKER) (test 31.2 pg 25.6-32.2 fkhy=636) MEAN CORPUSCULAR HEMOGLOBIN CONC (BEAKER) (test 32.2 GM/DL 32.2-35.5 hfnx=819) RED CELL DISTRIBUTION WIDTH (BEAKER) (test 25.4 % 11.7-14.4 uwye=921) PLATELET COUNT (BEAKER) (test vjjz=087) 227 K/CU MM 150-450 MEAN PLATELET VOLUME (BEAKER) (test xgaq=805) 10.4 fL 9.4-12.3 NUCLEATED RED BLOOD CELLS (BEAKER) (test 18 /100 WBC 0-0 wauz=360) NEUTROPHILS RELATIVE PERCENT (BEAKER) (test 57 % yzva=886) LYMPHOCYTES RELATIVE PERCENT (BEAKER) (test 24 % erff=258) MONOCYTES RELATIVE PERCENT (BEAKER) (test 15 % zebr=197) EOSINOPHILS RELATIVE PERCENT (BEAKER) (test 3 % ebuc=893) BASOPHILS RELATIVE PERCENT (BEAKER) (test 0 % hhyf=040) NEUTROPHILS ABSOLUTE COUNT (BEAKER) (test 10.46 K/ L 1.56-6.13 hmxy=104) LYMPHOCYTES ABSOLUTE COUNT (BEAKER) (test 4.31 K/ L 1.18-3.74 uctt=936) MONOCYTES ABSOLUTE COUNT (BEAKER) (test 2.72 K/ L 0.24-0.36 zqer=749) EOSINOPHILS ABSOLUTE COUNT (BEAKER) (test 0.45 K/ L 0.04-0.36 wylz=766) BASOPHILS ABSOLUTE COUNT (BEAKER) (test 0.07 K/ L 0.01-0.08 kdek=061) IMMATURE GRANULOCYTES-RELATIVE PERCENT (BEAKER) 1 % 0-1 (test ogda=0934) (MANUAL DIFFERENTIAL)2017-11-05 09:17:00 Test Item Value Reference Range Comments TOTAL COUNTED (BEAKER) (test kprp=3880) WBC MORPHOLOGY (BEAKER) (test lras=217) Normal PLT MORPHOLOGY (BEAKER) (test jtmu=260) Normal ANISOCYTOSIS (BEAKER) (test tiks=943) 2+ moderate POLYCHROMATOPHILLIC RBCS(BEAKER) (test dsgi=261) 2+ moderate SICKLE CELLS (BEAKER) (test wvcr=627) 2+ moderate TARGET CELLS (BEAKER) (test hwli=130) 2+ moderate CREATINE KINASE (CK), TOTAL AND [id number] 22:01:00 Test Item Value Reference Range Comments CREATINE KINASE TOTAL (BEAKER) (test 10 U/L 29-200 ayuo=447) CREATINE KINASE-MB (BEAKER) (test 0.1 ng/mL 0.0-6.6 zgdj=028) CREATINE KINASE-MB INDEX (BEAKER) (test 1.0 % Unable to Calculate ohiv=971) CK-MB Reference Range:<6.7 Normal6.7-10.0 Borderline>10.0 AbnormalTROPONIN [id number] 21:16:00 Test Item Value Reference Range Comments TROPONIN I (BEAKER) (test hpbz=163) < ng/mL 0.00-0.03 Troponin I (TnI) levels [...] and persistent tachyarrhythmia.CBC W/PLT COUNT & AUTO [id number] 06:49:00 Test Item Value Reference Range Comments WHITE BLOOD CELL COUNT (BEAKER) (test ibdy=298) 13.3 K/ L 3.5-10.5 RED BLOOD CELL COUNT (BEAKER) (test zlhq=998) 2.18 M/ L 3.93-5.22 HEMOGLOBIN (BEAKER) (test epwx=032) 6.8 GM/DL 11.2-15.7 HEMATOCRIT (BEAKER) (test fzrq=930) 21.5 % 34.1-44.9 MEAN CORPUSCULAR VOLUME (BEAKER) (test yhkv=954) 98.6 fL 79.4-94.8 MEAN CORPUSCULAR HEMOGLOBIN (BEAKER) (test 31.2 pg 25.6-32.2 owrf=943) MEAN CORPUSCULAR HEMOGLOBIN CONC (BEAKER) (test 31.6 GM/DL 32.2-35.5 djcn=471) RED CELL DISTRIBUTION WIDTH (BEAKER) (test 21.1 % 11.7-14.4 qsup=904) PLATELET COUNT (BEAKER) (test jcfa=395) 192 K/CU MM 150-450 MEAN PLATELET VOLUME (BEAKER) (test mbba=982) 11.4 fL 9.4-12.3 NUCLEATED RED BLOOD CELLS (BEAKER) (test 1 /100 WBC 0-0 erxs=478) NEUTROPHILS RELATIVE PERCENT (BEAKER) (test 51 % phqq=572) LYMPHOCYTES RELATIVE PERCENT (BEAKER) (test 30 % jlkl=074) MONOCYTES RELATIVE PERCENT (BEAKER) (test 16 % tbtg=535) EOSINOPHILS RELATIVE PERCENT (BEAKER) (test 2 % irzc=616) BASOPHILS RELATIVE PERCENT (BEAKER) (test 0 % ukim=851) NEUTROPHILS ABSOLUTE COUNT (BEAKER) (test 6.84 K/ L 1.56-6.13 pnie=432) LYMPHOCYTES ABSOLUTE COUNT (BEAKER) (test 4.06 K/ L 1.18-3.74 ghtt=777) MONOCYTES ABSOLUTE COUNT (BEAKER) (test 2.12 K/ L 0.24-0.36 vjvx=137) EOSINOPHILS ABSOLUTE COUNT (BEAKER) (test 0.26 K/ L 0.04-0.36 kxhr=580) BASOPHILS ABSOLUTE COUNT (BEAKER) (test 0.02 K/ L 0.01-0.08 srrt=299) IMMATURE GRANULOCYTES-RELATIVE PERCENT (BEAKER) 0 % 0-1 (test djcm=1508) BASIC METABOLIC [id number] 07:06:00 Test Item Value Reference Range Comments SODIUM (BEAKER) (test 138 meq/L 136-145 lskr=685) POTASSIUM (BEAKER) (test 4.2 meq/L 3.5-5.1 lnfl=956) CHLORIDE (BEAKER) (test 103 meq/L 98-107 ucnz=414) CO2 (BEAKER) (test 28 meq/L 22-29 diey=692) BLOOD UREA NITROGEN 11 mg/dL 7-21 (BEAKER) (test xaqi=303) CREATININE (BEAKER) (test 0.55 mg/dL 0.57-1.25 pjlr=252) GLUCOSE RANDOM (BEAKER) 95 mg/dL 70-105 (test qrni=360) CALCIUM (BEAKER) (test 9.5 mg/dL 8.4-10.2 sver=857) EGFR (BEAKER) (test 150 mL/min/1.73 sq m ESTIMATED GFR IS NOT pbcr=5598) ACCURATE CREATININE CLEARANCE IN PREDICTING GLOMERULAR FILTRATION RATE. ESTIMATED GFR IS NOT APPLICABLE FOR DIALYSIS PATIENTS. CBC W/PLT COUNT & AUTO [id number] 06:48:00 Test Item Value Reference Range Comments WHITE BLOOD CELL COUNT (BEAKER) (test lvho=033) 12.8 K/ L 3.5-10.5 RED BLOOD CELL COUNT (BEAKER) (test cond=086) 2.22 M/ L 3.93-5.22 HEMOGLOBIN (BEAKER) (test ysba=179) 7.2 GM/DL 11.2-15.7 HEMATOCRIT (BEAKER) (test dnhd=133) 21.9 % 34.1-44.9 MEAN CORPUSCULAR VOLUME (BEAKER) (test kjir=550) 98.6 fL 79.4-94.8 MEAN CORPUSCULAR HEMOGLOBIN (BEAKER) (test 32.4 pg 25.6-32.2 qdbs=749) MEAN CORPUSCULAR HEMOGLOBIN CONC (BEAKER) (test 32.9 GM/DL 32.2-35.5 heph=222) RED CELL DISTRIBUTION WIDTH (BEAKER) (test 21.2 % 11.7-14.4 dpeu=339) PLATELET COUNT (BEAKER) (test ernv=470) 176 K/CU MM 150-450 MEAN PLATELET VOLUME (BEAKER) (test teih=508) 11.2 fL 9.4-12.3 NUCLEATED RED BLOOD CELLS (BEAKER) (test 5 /100 WBC 0-0 czmp=083) NEUTROPHILS RELATIVE PERCENT (BEAKER) (test 49 % xcsf=375) LYMPHOCYTES RELATIVE PERCENT (BEAKER) (test 31 % edbw=637) MONOCYTES RELATIVE PERCENT (BEAKER) (test 19 % ppnb=969) EOSINOPHILS RELATIVE PERCENT (BEAKER) (test 2 % umgt=655) BASOPHILS RELATIVE PERCENT (BEAKER) (test 0 % swiw=173) NEUTROPHILS ABSOLUTE COUNT (BEAKER) (test 6.23 K/ L 1.56-6.13 lsqk=759) LYMPHOCYTES ABSOLUTE COUNT (BEAKER) (test 3.90 K/ L 1.18-3.74 hzab=699) MONOCYTES ABSOLUTE COUNT (BEAKER) (test 2.37 K/ L 0.24-0.36 ozku=162) EOSINOPHILS ABSOLUTE COUNT (BEAKER) (test 0.24 K/ L 0.04-0.36 unri=504) BASOPHILS ABSOLUTE COUNT (BEAKER) (test 0.01 K/ L 0.01-0.08 ktog=896) IMMATURE GRANULOCYTES-RELATIVE PERCENT (BEAKER) 0 % 0-1 (test evcd=7617) (MANUAL DIFFERENTIAL)2017-06-03 06:48:00 Test Item Value Reference Range Comments TOTAL COUNTED (BEAKER) (test asnp=9132) WBC MORPHOLOGY (BEAKER) (test jmca=018) Normal PLT MORPHOLOGY (BEAKER) (test hhbx=259) Normal ANISOCYTOSIS (BEAKER) (test prxm=012) 3+ many MATTHEWS-JOLLY BODIES (BEAKER) (test qkff=410) Present MACROCYTES (BEAKER) (test usdo=603) 3+ many SICKLE CELLS (BEAKER) (test ppvn=165) 1+ few TARGET CELLS (BEAKER) (test gtxb=495) 1+ few BASIC METABOLIC [id number] 07:33:00 Test Item Value Reference Range Comments SODIUM (BEAKER) (test 138 meq/L 136-145 vdob=641) POTASSIUM (BEAKER) (test 4.5 meq/L 3.5-5.1 ardf=620) CHLORIDE (BEAKER) (test 102 meq/L 98-107 dnab=941) CO2 (BEAKER) (test 27 meq/L 22-29 dfpg=485) BLOOD UREA NITROGEN 11 mg/dL 7-21 (BEAKER) (test fdhy=749) CREATININE (BEAKER) (test 0.55 mg/dL 0.57-1.25 ppms=529) GLUCOSE RANDOM (BEAKER) 85 mg/dL 70-105 (test qbxk=589) CALCIUM (BEAKER) (test 9.5 mg/dL 8.4-10.2 fegh=883) EGFR (BEAKER) (test 150 mL/min/1.73 sq m ESTIMATED GFR IS NOT nczl=3398) ACCURATE CREATININE CLEARANCE IN PREDICTING GLOMERULAR FILTRATION RATE. ESTIMATED GFR IS NOT APPLICABLE FOR DIALYSIS PATIENTS. CBC W/PLT COUNT & AUTO [id number] 07:13:00 Test Item Value Reference Range Comments WHITE BLOOD CELL COUNT (BEAKER) (test cmxy=939) 14.2 K/ L 3.5-10.5 RED BLOOD CELL COUNT (BEAKER) (test tcmx=463) 2.39 M/ L 3.93-5.22 HEMOGLOBIN (BEAKER) (test cyet=579) 7.6 GM/DL 11.2-15.7 HEMATOCRIT (BEAKER) (test qgwa=763) 23.5 % 34.1-44.9 MEAN CORPUSCULAR VOLUME (BEAKER) (test zynf=228) 98.3 fL 79.4-94.8 MEAN CORPUSCULAR HEMOGLOBIN (BEAKER) (test 31.8 pg 25.6-32.2 vsgi=779) MEAN CORPUSCULAR HEMOGLOBIN CONC (BEAKER) (test 32.3 GM/DL 32.2-35.5 vkom=309) RED CELL DISTRIBUTION WIDTH (BEAKER) (test 21.1 % 11.7-14.4 yecp=366) PLATELET COUNT (BEAKER) (test nhzw=588) 173 K/CU MM 150-450 MEAN PLATELET VOLUME (BEAKER) (test mzqg=686) 11.7 fL 9.4-12.3 NUCLEATED RED BLOOD CELLS (BEAKER) (test 11 /100 WBC 0-0 mflt=743) NEUTROPHILS RELATIVE PERCENT (BEAKER) (test 53 % uwbs=436) LYMPHOCYTES RELATIVE PERCENT (BEAKER) (test 27 % vqkt=446) MONOCYTES RELATIVE PERCENT (BEAKER) (test 18 % ymyr=467) EOSINOPHILS RELATIVE PERCENT (BEAKER) (test 1 % jxau=143) BASOPHILS RELATIVE PERCENT (BEAKER) (test 0 % lguq=634) NEUTROPHILS ABSOLUTE COUNT (BEAKER) (test 7.56 K/ L 1.56-6.13 yjwt=606) LYMPHOCYTES ABSOLUTE COUNT (BEAKER) (test 3.89 K/ L 1.18-3.74 typr=191) MONOCYTES ABSOLUTE COUNT (BEAKER) (test 2.52 K/ L 0.24-0.36 bwii=882) EOSINOPHILS ABSOLUTE COUNT (BEAKER) (test 0.20 K/ L 0.04-0.36 akpd=443) BASOPHILS ABSOLUTE COUNT (BEAKER) (test 0.02 K/ L 0.01-0.08 jawi=308) IMMATURE GRANULOCYTES-RELATIVE PERCENT (BEAKER) 0 % 0-1 (test hjia=5558) CBC W/PLT COUNT & AUTO [id number] 16:45:00 Test Item Value Reference Range Comments WHITE BLOOD CELL COUNT (BEAKER) (test fuqh=998) 15.1 K/ L 3.5-10.5 RED BLOOD CELL COUNT (BEAKER) (test ghsc=373) 2.36 M/ L 3.93-5.22 HEMOGLOBIN (BEAKER) (test zclu=948) 7.5 GM/DL 11.2-15.7 HEMATOCRIT (BEAKER) (test osqc=161) 23.0 % 34.1-44.9 MEAN CORPUSCULAR VOLUME (BEAKER) (test kqqq=538) 97.5 fL 79.4-94.8 MEAN CORPUSCULAR HEMOGLOBIN (BEAKER) (test 31.8 pg 25.6-32.2 oeuf=876) MEAN CORPUSCULAR HEMOGLOBIN CONC (BEAKER) (test 32.6 GM/DL 32.2-35.5 agcv=327) RED CELL DISTRIBUTION WIDTH (BEAKER) (test 20.7 % 11.7-14.4 jtmp=461) PLATELET COUNT (BEAKER) (test qeiv=597) 179 K/CU MM 150-450 MEAN PLATELET VOLUME (BEAKER) (test uaec=481) 11.9 fL 9.4-12.3 NUCLEATED RED BLOOD CELLS (BEAKER) (test 12 /100 WBC 0-0 gzcq=245) NEUTROPHILS RELATIVE PERCENT (BEAKER) (test 53 % cpan=692) LYMPHOCYTES RELATIVE PERCENT (BEAKER) (test 27 % vpsr=429) MONOCYTES RELATIVE PERCENT (BEAKER) (test 18 % fcfc=277) EOSINOPHILS RELATIVE PERCENT (BEAKER) (test 2 % twsb=972) BASOPHILS RELATIVE PERCENT (BEAKER) (test 0 % opui=919) NEUTROPHILS ABSOLUTE COUNT (BEAKER) (test 8.03 K/ L 1.56-6.13 miss=105) LYMPHOCYTES ABSOLUTE COUNT (BEAKER) (test 3.99 K/ L 1.18-3.74 pkil=766) MONOCYTES ABSOLUTE COUNT (BEAKER) (test 2.65 K/ L 0.24-0.36 pokk=349) EOSINOPHILS ABSOLUTE COUNT (BEAKER) (test 0.31 K/ L 0.04-0.36 vytn=691) BASOPHILS ABSOLUTE COUNT (BEAKER) (test 0.02 K/ L 0.01-0.08 atxa=453) IMMATURE GRANULOCYTES-RELATIVE PERCENT (BEAKER) 0 % 0-1 (test ceez=7632) BASIC METABOLIC [id number] 06:17:00 Test Item Value Reference Range Comments SODIUM (BEAKER) (test 138 meq/L 136-145 xtvp=126) POTASSIUM (BEAKER) (test 4.1 meq/L 3.5-5.1 hplp=678) CHLORIDE (BEAKER) (test 100 meq/L 98-107 rjfa=154) CO2 (BEAKER) (test 30 meq/L 22-29 ocfs=995) BLOOD UREA NITROGEN 11 mg/dL 7-21 (BEAKER) (test sdjp=602) CREATININE (BEAKER) (test 0.58 mg/dL 0.57-1.25 xqgx=265) GLUCOSE RANDOM (BEAKER) 90 mg/dL 70-105 (test iryo=121) CALCIUM (BEAKER) (test 9.4 mg/dL 8.4-10.2 phna=048) EGFR (BEAKER) (test 141 mL/min/1.73 sq m ESTIMATED GFR IS NOT wqub=2289) ACCURATE CREATININE CLEARANCE IN PREDICTING GLOMERULAR FILTRATION RATE. ESTIMATED GFR IS NOT APPLICABLE FOR DIALYSIS PATIENTS. CBC W/PLT COUNT & AUTO [id number] 13:41:00 Test Item Value Reference Range Comments WHITE BLOOD CELL COUNT (BEAKER) (test rizv=856) 13.9 K/ L 3.5-10.5 RED BLOOD CELL COUNT (BEAKER) (test jsim=871) 2.38 M/ L 3.93-5.22 HEMOGLOBIN (BEAKER) (test pqpj=184) 7.5 GM/DL 11.2-15.7 HEMATOCRIT (BEAKER) (test tjqo=869) 23.2 % 34.1-44.9 MEAN CORPUSCULAR VOLUME (BEAKER) (test kcil=621) 97.5 fL 79.4-94.8 MEAN CORPUSCULAR HEMOGLOBIN (BEAKER) (test 31.5 pg 25.6-32.2 sdfk=796) MEAN CORPUSCULAR HEMOGLOBIN CONC (BEAKER) (test 32.3 GM/DL 32.2-35.5 wbbv=917) RED CELL DISTRIBUTION WIDTH (BEAKER) (test 20.2 % 11.7-14.4 mtzb=059) PLATELET COUNT (BEAKER) (test rugu=580) 171 K/CU MM 150-450 MEAN PLATELET VOLUME (BEAKER) (test lcmt=588) 12.0 fL 9.4-12.3 NUCLEATED RED BLOOD CELLS (BEAKER) (test 8 /100 WBC 0-0 aatu=732) NEUTROPHILS RELATIVE PERCENT (BEAKER) (test 57 % emol=792) LYMPHOCYTES RELATIVE PERCENT (BEAKER) (test 23 % ustq=837) MONOCYTES RELATIVE PERCENT (BEAKER) (test 18 % ngpd=484) EOSINOPHILS RELATIVE PERCENT (BEAKER) (test 2 % ewze=388) BASOPHILS RELATIVE PERCENT (BEAKER) (test 0 % rxab=145) NEUTROPHILS ABSOLUTE COUNT (BEAKER) (test 7.89 K/ L 1.56-6.13 msnh=184) LYMPHOCYTES ABSOLUTE COUNT (BEAKER) (test 3.13 K/ L 1.18-3.74 rwhm=709) MONOCYTES ABSOLUTE COUNT (BEAKER) (test 2.52 K/ L 0.24-0.36 quij=362) EOSINOPHILS ABSOLUTE COUNT (BEAKER) (test 0.25 K/ L 0.04-0.36 iamn=456) BASOPHILS ABSOLUTE COUNT (BEAKER) (test 0.02 K/ L 0.01-0.08 zzip=558) IMMATURE GRANULOCYTES-RELATIVE PERCENT (BEAKER) 1 % 0-1 (test gsex=9900) (MANUAL DIFFERENTIAL)2017-05-31 13:41:00 Test Item Value Reference Range Comments TOTAL COUNTED (BEAKER) (test uekr=1066) WBC MORPHOLOGY (BEAKER) (test clze=100) Normal PLT MORPHOLOGY (BEAKER) (test wbml=035) Normal POLYCHROMATOPHILLIC RBCS(BEAKER) (test ijvr=244) 2+ moderate SICKLE CELLS (BEAKER) (test hpxp=442) 1+ few TARGET CELLS (BEAKER) (test oves=323) 2+ moderate URINE [id number] 12:19:00 Test Item Value Reference Range Comments CULTURE (BEAKER) (test 20-29,000 col/mL skin valentino jnpw=1046) BASIC METABOLIC [id number] 07:23:00 Test Item Value Reference Range Comments SODIUM (BEAKER) (test 136 meq/L 136-145 zzbh=957) POTASSIUM (BEAKER) (test 3.9 meq/L 3.5-5.1 ylhy=257) CHLORIDE (BEAKER) (test 97 meq/L 98-107 kkmp=574) CO2 (BEAKER) (test 30 meq/L 22-29 hbry=550) BLOOD UREA NITROGEN 9 mg/dL 7-21 (BEAKER) (test mrhj=649) CREATININE (BEAKER) (test 0.56 mg/dL 0.57-1.25 wmrd=790) GLUCOSE RANDOM (BEAKER) 100 mg/dL 70-105 (test bdau=030) CALCIUM (BEAKER) (test 9.5 mg/dL 8.4-10.2 axov=200) EGFR (BEAKER) (test 147 mL/min/1.73 sq m ESTIMATED GFR IS NOT jzdc=5980) ACCURATE CREATININE CLEARANCE IN PREDICTING GLOMERULAR FILTRATION RATE. ESTIMATED GFR IS NOT APPLICABLE FOR DIALYSIS PATIENTS. U/S, ABDOMINAL, [id number] 23:52:00Reason for exam:->painShould this be performed at [...] MDReport Verified Date/Time: 05/30/2017 23:52:25 Reading Location: [address] Consult Reading Room 11:52 PMCBC W/PLT COUNT & AUTO [id number] 17:30:00 Test Item Value Reference Range Comments WHITE BLOOD CELL COUNT (BEAKER) (test lqde=740) 14.0 K/ L 3.5-10.5 RED BLOOD CELL COUNT (BEAKER) (test zvga=903) 2.41 M/ L 3.93-5.22 HEMOGLOBIN (BEAKER) (test xyle=347) 7.7 GM/DL 11.2-15.7 HEMATOCRIT (BEAKER) (test nyna=575) 23.3 % 34.1-44.9 MEAN CORPUSCULAR VOLUME (BEAKER) (test mgyv=247) 96.7 fL 79.4-94.8 MEAN CORPUSCULAR HEMOGLOBIN (BEAKER) (test 32.0 pg 25.6-32.2 ekuk=927) MEAN CORPUSCULAR HEMOGLOBIN CONC (BEAKER) (test 33.0 GM/DL 32.2-35.5 pxwa=673) RED CELL DISTRIBUTION WIDTH (BEAKER) (test 20.0 % 11.7-14.4 ymmc=493) PLATELET COUNT (BEAKER) (test cvgw=568) 163 K/CU MM 150-450 MEAN PLATELET VOLUME (BEAKER) (test zhcb=026) 11.7 fL 9.4-12.3 NUCLEATED RED BLOOD CELLS (BEAKER) (test 4 /100 WBC 0-0 iyje=407) NEUTROPHILS RELATIVE PERCENT (BEAKER) (test 47 % gnpq=301) LYMPHOCYTES RELATIVE PERCENT (BEAKER) (test 32 % wlae=604) MONOCYTES RELATIVE PERCENT (BEAKER) (test 18 % vklb=856) EOSINOPHILS RELATIVE PERCENT (BEAKER) (test 3 % oqhk=449) BASOPHILS RELATIVE PERCENT (BEAKER) (test 0 % qoga=869) NEUTROPHILS ABSOLUTE COUNT (BEAKER) (test 6.58 K/ L 1.56-6.13 csld=584) LYMPHOCYTES ABSOLUTE COUNT (BEAKER) (test 4.40 K/ L 1.18-3.74 uhuk=102) MONOCYTES ABSOLUTE COUNT (BEAKER) (test 2.49 K/ L 0.24-0.36 kiyo=700) EOSINOPHILS ABSOLUTE COUNT (BEAKER) (test 0.44 K/ L 0.04-0.36 voil=587) BASOPHILS ABSOLUTE COUNT (BEAKER) (test 0.02 K/ L 0.01-0.08 qifa=344) IMMATURE GRANULOCYTES-RELATIVE PERCENT (BEAKER) 0 % 0-1 (test vwnu=8109) BASIC METABOLIC [id number] 06:33:00 Test Item Value Reference Range Comments SODIUM (BEAKER) (test 139 meq/L 136-145 hnne=376) POTASSIUM (BEAKER) (test 4.0 meq/L 3.5-5.1 cosd=347) CHLORIDE (BEAKER) (test 102 meq/L 98-107 ebei=792) CO2 (BEAKER) (test 28 meq/L 22-29 oncl=694) BLOOD UREA NITROGEN 7 mg/dL 7-21 (BEAKER) (test dwwi=524) CREATININE (BEAKER) (test 0.54 mg/dL 0.57-1.25 tccg=571) GLUCOSE RANDOM (BEAKER) 95 mg/dL 70-105 (test uofv=384) CALCIUM (BEAKER) (test 9.6 mg/dL 8.4-10.2 qiaf=830) EGFR (BEAKER) (test 153 mL/min/1.73 sq m ESTIMATED GFR IS NOT gnxg=7636) ACCURATE CREATININE CLEARANCE IN PREDICTING GLOMERULAR FILTRATION RATE. ESTIMATED GFR IS NOT APPLICABLE FOR DIALYSIS PATIENTS. CBC W/PLT COUNT & AUTO [id number] 13:41:00 Test Item Value Reference Range Comments WHITE BLOOD CELL COUNT (BEAKER) (test oiau=154) 14.6 K/ L 3.5-10.5 RED BLOOD CELL COUNT (BEAKER) (test flxv=456) 1.85 M/ L 3.93-5.22 HEMOGLOBIN (BEAKER) (test hykt=167) 5.9 GM/DL 11.2-15.7 HEMATOCRIT (BEAKER) (test ivnp=323) 18.5 % 34.1-44.9 MEAN CORPUSCULAR VOLUME (BEAKER) (test bonn=882) 100.0 fL 79.4-94.8 MEAN CORPUSCULAR HEMOGLOBIN (BEAKER) (test 31.9 pg 25.6-32.2 dakc=457) MEAN CORPUSCULAR HEMOGLOBIN CONC (BEAKER) (test 31.9 GM/DL 32.2-35.5 ngwe=672) RED CELL DISTRIBUTION WIDTH (BEAKER) (test 21.0 % 11.7-14.4 kuzl=140) PLATELET COUNT (BEAKER) (test zdlu=915) 169 K/CU MM 150-450 MEAN PLATELET VOLUME (BEAKER) (test lbyu=041) 12.1 fL 9.4-12.3 NUCLEATED RED BLOOD CELLS (BEAKER) (test 3 /100 WBC 0-0 keef=145) NEUTROPHILS RELATIVE PERCENT (BEAKER) (test 52 % cnrc=552) LYMPHOCYTES RELATIVE PERCENT (BEAKER) (test 28 % jmki=498) MONOCYTES RELATIVE PERCENT (BEAKER) (test 16 % nfia=802) EOSINOPHILS RELATIVE PERCENT (BEAKER) (test 4 % xgcz=187) BASOPHILS RELATIVE PERCENT (BEAKER) (test 0 % wilr=195) NEUTROPHILS ABSOLUTE COUNT (BEAKER) (test 7.50 K/ L 1.56-6.13 rknc=791) LYMPHOCYTES ABSOLUTE COUNT (BEAKER) (test 4.08 K/ L 1.18-3.74 mpvw=006) MONOCYTES ABSOLUTE COUNT (BEAKER) (test 2.34 K/ L 0.24-0.36 pgll=008) EOSINOPHILS ABSOLUTE COUNT (BEAKER) (test 0.56 K/ L 0.04-0.36 nurf=959) BASOPHILS ABSOLUTE COUNT (BEAKER) (test 0.02 K/ L 0.01-0.08 geyp=984) IMMATURE GRANULOCYTES-RELATIVE PERCENT (BEAKER) 0 % 0-1 (test scqb=3822) (MANUAL DIFFERENTIAL)2017-05-29 13:41:00 Test Item Value Reference Range Comments TOTAL COUNTED (BEAKER) (test jnqk=1531) WBC MORPHOLOGY (BEAKER) (test fjno=376) Normal PLT MORPHOLOGY (BEAKER) (test qkdo=714) Normal POLYCHROMATOPHILLIC RBCS(BEAKER) (test kotp=625) 2+ moderate SICKLE CELLS (BEAKER) (test cxwd=396) 1+ few TARGET CELLS (BEAKER) (test kjic=698) 2+ moderate BASIC METABOLIC [id number] 07:38:00 Test Item Value Reference Range Comments SODIUM (BEAKER) (test 140 meq/L 136-145 tmln=611) POTASSIUM (BEAKER) (test 3.9 meq/L 3.5-5.1 wsxd=984) CHLORIDE (BEAKER) (test 104 meq/L 98-107 wnqu=679) CO2 (BEAKER) (test 28 meq/L 22-29 uhjt=568) BLOOD UREA NITROGEN 8 mg/dL 7-21 (BEAKER) (test wmth=228) CREATININE (BEAKER) (test 0.56 mg/dL 0.57-1.25 uzvd=351) GLUCOSE RANDOM (BEAKER) 129 mg/dL 70-105 (test lhdf=995) CALCIUM (BEAKER) (test 9.2 mg/dL 8.4-10.2 pvtl=104) EGFR (BEAKER) (test 147 mL/min/1.73 sq m ESTIMATED GFR IS NOT bybq=0504) ACCURATE CREATININE CLEARANCE IN PREDICTING GLOMERULAR FILTRATION RATE. ESTIMATED GFR IS NOT APPLICABLE FOR DIALYSIS PATIENTS. CBC W/PLT COUNT & AUTO [id number] 15:40:00 Test Item Value Reference Range Comments WHITE BLOOD CELL COUNT (BEAKER) (test rucc=390) 15.5 K/ L 3.5-10.5 RED BLOOD CELL COUNT (BEAKER) (test otnf=660) 2.13 M/ L 3.93-5.22 HEMOGLOBIN (BEAKER) (test gsqs=239) 6.8 GM/DL 11.2-15.7 HEMATOCRIT (BEAKER) (test ptyb=543) 21.1 % 34.1-44.9 MEAN CORPUSCULAR VOLUME (BEAKER) (test ftdb=668) 99.1 fL 79.4-94.8 MEAN CORPUSCULAR HEMOGLOBIN (BEAKER) (test 31.9 pg 25.6-32.2 ebxj=371) MEAN CORPUSCULAR HEMOGLOBIN CONC (BEAKER) (test 32.2 GM/DL 32.2-35.5 zbda=830) RED CELL DISTRIBUTION WIDTH (BEAKER) (test 20.8 % 11.7-14.4 aypt=667) PLATELET COUNT (BEAKER) (test whiu=287) 178 K/CU MM 150-450 MEAN PLATELET VOLUME (BEAKER) (test qisc=629) 11.9 fL 9.4-12.3 NUCLEATED RED BLOOD CELLS (BEAKER) (test 2 /100 WBC 0-0 kmix=257) NEUTROPHILS RELATIVE PERCENT (BEAKER) (test 47 % zqir=024) LYMPHOCYTES RELATIVE PERCENT (BEAKER) (test 34 % ycam=660) MONOCYTES RELATIVE PERCENT (BEAKER) (test 16 % vhvt=926) EOSINOPHILS RELATIVE PERCENT (BEAKER) (test 3 % jlxe=479) BASOPHILS RELATIVE PERCENT (BEAKER) (test 0 % yrzz=131) NEUTROPHILS ABSOLUTE COUNT (BEAKER) (test 7.20 K/ L 1.56-6.13 amyg=627) LYMPHOCYTES ABSOLUTE COUNT (BEAKER) (test 5.22 K/ L 1.18-3.74 vtge=488) MONOCYTES ABSOLUTE COUNT (BEAKER) (test 2.50 K/ L 0.24-0.36 wjlq=310) EOSINOPHILS ABSOLUTE COUNT (BEAKER) (test 0.48 K/ L 0.04-0.36 skrb=425) BASOPHILS ABSOLUTE COUNT (BEAKER) (test 0.02 K/ L 0.01-0.08 jwbr=279) IMMATURE GRANULOCYTES-RELATIVE PERCENT (BEAKER) 1 % 0-1 (test skef=3449) (MANUAL DIFFERENTIAL)2017-05-28 15:40:00 Test Item Value Reference Range Comments TOTAL COUNTED (BEAKER) (test kjwn=0605) WBC MORPHOLOGY (BEAKER) (test dbbw=294) Normal PLT MORPHOLOGY (BEAKER) (test delj=566) Normal ANISOCYTOSIS (BEAKER) (test xtmk=086) 2+ moderate POLYCHROMATOPHILLIC RBCS(BEAKER) (test drjy=748) 2+ moderate SICKLE CELLS (BEAKER) (test halp=690) 1+ few TARGET CELLS (BEAKER) (test lnag=497) 2+ moderate URINALYSIS W/ [id number] 15:13:00 Test Item Value Reference Range Comments COLOR (BEAKER) (test gxqn=969) Yellow CLARITY (BEAKER) (test gqwe=043) Clear SPECIFIC GRAVITY UA (BEAKER) (test fjcj=239) 1.008 1.001-1.035 PH UA (BEAKER) (test wwwg=850) 6.0 5.0-8.0 PROTEIN UA (BEAKER) (test zqlj=556) Negative Negative GLUCOSE UA (BEAKER) (test jizq=215) Negative Negative KETONES UA (BEAKER) (test visi=876) Negative Negative BILIRUBIN UA (BEAKER) (test eifk=518) Negative Negative BLOOD UA (BEAKER) (test uwuq=708) Negative Negative NITRITE UA (BEAKER) (test vghu=824) Negative Negative LEUKOCYTE ESTERASE UA (BEAKER) (test tdqm=337) Negative Negative UROBILINOGEN UA (BEAKER) (test blmu=474) 0.2 mg/dL 0.2-1.0 RBC UA (BEAKER) (test tcgy=156) < /HPF WBC UA (BEAKER) (test cedl=125) 2 /HPF MUCUS (BEAKER) (test wzfd=5889) Rare SQUAMOUS EPITHELIAL (BEAKER) (test vrdc=764) 5 /HPF SOURCE(BEAKER) (test vlhi=3631) Urine, Voided BASIC METABOLIC [id number] 06:26:00 Test Item Value Reference Range Comments SODIUM (BEAKER) (test 139 meq/L 136-145 juhs=935) POTASSIUM (BEAKER) (test 3.8 meq/L 3.5-5.1 bslw=807) CHLORIDE (BEAKER) (test 104 meq/L 98-107 vdbb=345) CO2 (BEAKER) (test 30 meq/L 22-29 quqp=278) BLOOD UREA NITROGEN 6 mg/dL 7-21 (BEAKER) (test ayoj=750) CREATININE (BEAKER) (test 0.56 mg/dL 0.57-1.25 bbxf=664) GLUCOSE RANDOM (BEAKER) 102 mg/dL 70-105 (test mcva=828) CALCIUM (BEAKER) (test 9.0 mg/dL 8.4-10.2 bzhm=437) EGFR (BEAKER) (test 147 mL/min/1.73 sq m ESTIMATED GFR IS NOT hbdv=6426) ACCURATE CREATININE CLEARANCE IN PREDICTING GLOMERULAR FILTRATION RATE. ESTIMATED GFR IS NOT APPLICABLE FOR DIALYSIS PATIENTS.
[2018-09-15] MEDS ORDERED: NA CHLORIDE 0.9% 1,000 ML ONE ×2 (17:17→20:21)
[2018-09-15 17:18] LABS: Hematocrit 20.3 % (36.0-45.0); MPV 8.7 fL (7.6-11.3)
[2018-09-15] MEDS ORDERED: HYDROMORPHONE HCL 2 MG/ML inj ONE ×2 (17:24→18:09)
[2018-09-15] MEDS ORDERED: DIPHENHYDRAMINE 50 MG/ML VIAL ONE (17:25)
[2018-09-15] MEDS ORDERED: PROMETHAZINE 25 MG/ML VIAL ONE ×2 (17:25→19:12)
[2018-09-15 17:33] LABS: ALT/SGPT 110 U/L (12-78); AST/SGOT 193 U/L (15-37); Albumin 3.4 g/dL (3.4-5.0); Alkaline Phosphatase 185 U/L (45-117); BUN Blood Urea Nitrogen 11 mg/dL (7-18); Bicarbonate 26 mmol/L (21-32); Bilirubin Direct 1.2 mg/dL (0-0.2); Glucose Level 106 mg/dL (74-106); Lipase 166 U/L (73-393); Potassium 3.8 mmol/L (3.5-5.1); Protein, Total 9.4 g/dL (6.4-8.2); Sodium Level 137 mmol/L (136-145)
[2018-09-15 17:41] LABS: Urine Blood 2+ (NEG); Urine Glucose NEGATIVE (NEG); Urine Protein 2+ (NEG); Urine Specific Gravity 1.015 (1.005-1.030); Urine pH 5.5 (5.0-7.0)
[2018-09-15] MEDS ORDERED: PANTOPRAZOLE 40 MG INJ ONE (18:09)
--- NOTE | 2018-09-15 18:18 | ER ---
Nurse's Notes [facility] Name: Brennon Berg Age: 38 yrs Sex: Female : 1980 Arrival Date: 09/15/2018 Time: 16:20 Bed 28 Private MD: Diagnosis: Hematemesis;Sickle-cell disorders;Anemia Presentation: 09/15 16:23 Presenting complaint: Patient states: I have been in sickle cell crisis for a week and la1 now it is getting worse with vomiting and headache and there is some blood in my vomit. Transition of care: patient was not received from another setting of care. Onset of symptoms was September 15, 2018. Risk Assessment: Do you want to hurt yourself or someone else? Patient reports no desire to harm self or others. Initial Sepsis Screen: Does the patient meet any 2 criteria? No. Patient's initial sepsis screen is negative. Does the patient have a suspected source of infection? No. Patient's initial sepsis screen is negative. Care prior to arrival: None. 16:23 Method Of Arrival: Ambulatory la1 16:23 Acuity: TEMI 3 la1 Historical: - Allergies: 16:23 Fentanyl; la1 16:23 Morphine; la1 16:23 Reglan; la1 16:23 Stadol; la1 16:23 Toradol; la1 16:23 tramadol; la1 16:23 Trazodone; la1 16:23 Ultram; la1 16:23 Zofran; la1 - Home Meds: 20:57 gabapentin 300 mg Oral cap 1 cap 3 times per day [Active]; Hydrea 500 mg Oral cap TID rv [Active]; hydrocodone-acetaminophen 10-325 mg Oral tab [Active]; hydroxyurea 500 mg Oral cap 1 cap every 3 days [Active]; Keppra 250 mg Oral tab 1 tabs 2 times per day [Active]; promethazine 25 mg Oral tab [Active]; Xanax 2 mg Oral tab 2 times a day [Active]; - PMHx: 16:23 aplastic anemia; CVA; L sided weakness; Myocardial infarction; Seizures; Sickle Cell; la1 - PSHx: 20:57 None; rv - Immunization history:: Adult Immunizations up to date. - Social history:: Smoking status: Patient/guardian denies using tobacco. - Ebola Screening: : No symptoms or risks identified at this time. - Family history:: not pertinent. - Hospitalizations: : No recent hospitalization is reported. Screenin:35 Abuse screen: Denies threats or abuse. Denies injuries from another. Nutritional rv screening: No deficits noted. Tuberculosis screening: No symptoms or risk factors identified. Fall Risk None identified. Assessment: 16:34 General: Appears in no apparent distress. comfortable, Behavior is calm, cooperative. rv Pain: Complains of pain in abdomen Pain currently is 8 out of 10 on a pain scale. Neuro: Level of Consciousness is awake, alert, obeys commands, Oriented to person, place, time, situation. Cardiovascular: Capillary refill < 3 seconds. Respiratory: Airway is patent. GI: Bowel sounds present X 4 quads. Abd is soft and non tender X 4 quads. : No signs and/or symptoms were reported regarding the genitourinary system. EENT: No signs and/or symptoms were reported regarding the EENT system. Derm: Skin is intact. Musculoskeletal: No signs and/or symptoms reported regarding the musculoskeletal system. 20:00 Reassessment: Dr Rodriguez came in to see pt and after examination he decided that pt fc was to be discharged. Vital Signs: 16:24 BP 126 / 89; Pulse 92; Resp 16; Temp 98.6(TE); Pulse Ox 98% on R/A; Weight 70.76 kg; la1 Height 5 ft. 3 in. (160.02 cm); 18:00 BP 141 / 89; Pulse 86; Resp 18; Pulse Ox 100% on R/A; rv 18:30 BP 137 / 76; Pulse 102; Resp 18; Pulse Ox 98% on R/A; rv 19:00 BP 137 / 82; Pulse 88; Resp 17; Pulse Ox 99% on R/A; rv 19:30 BP 139 / 93; Pulse 85; Resp 17; Pulse Ox 100% on R/A; rv 16:24 Body Mass Index 27.63 (70.76 kg, 160.02 cm) la1 ED Course: 16:20 Patient arrived in ED. mr 16:24 Triage completed. la1 16:24 Arm band placed on left wrist. la1 16:35 Patient has correct armband on for positive identification. Placed in gown. Bed in low rv position. Call light in reach. Side rails up X 1. Pulse ox on. NIBP on. 16:43 Flaco Cook MD is Attending Physician. rn 17:10 Accessed Port-a-Cath. using accessed w/ # 20 Brasher needle, ,sterile technique, per hospital protocol. Good blood return. Flushes easily. 18:16 Juan Gill DO is Hospitalizing Provider. rn 19:30 Notified ED physician of a critical lab result(s). Hgb 6.6. lp1 20:55 No provider procedures requiring assistance completed. IV discontinued, bleeding rv controlled, No redness/swelling at site. Pressure dressing applied, heparin flush given. Administered Medications: 17:09 Drug: NS 0.9% 1000 ml Route: IV; Rate: 1000 ml; Site: Port-a-cath; rv 20:55 Follow up: IV Status: Completed infusion rv 17:21 Drug: Phenergan 12.5 mg Route: IVP; Site: Port-a-cath; rv 18:15 Follow up: Response: Pain is decreased rv 17:21 Drug: Benadryl 25 mg Route: IVP; Site: Port-a-cath; rv 18:15 Follow up: Response: Pain is decreased rv 17:23 Drug: Dilaudid 1 mg Route: IVP; Site: Port-a-cath; rv 18:15 Follow up: Response: Pain is decreased rv 18:00 Drug: ProTONIX 40 mg Route: IVP; Site: Port-a-cath; rv 20:54 Follow up: Response: Pain is decreased rv 18:00 Drug: Dilaudid 1 mg Route: IVP; Site: Port-a-cath; rv 20:54 Follow up: Response: Pain is decreased rv 19:00 Drug: Phenergan 12.5 mg Route: IVP; Site: Port-a-cath; rv 20:54 Follow up: Response: Pain is decreased rv 20:44 Drug: HEParin Flush 500 units Route: IVP; Site: Port-a-cath; fc 20:54 Follow up: Response: Medication administered at discharge. rv Outcome: 18:16 Decision to Hospitalize by Provider. rn 20:55 Discharged to home via wheelchair. rv 20:55 Condition: good 20:55 Discharge instructions given to patient, Instructed on discharge instructions, follow up and referral plans. medication usage, Demonstrated understanding of instructions, follow-up care, medications, Prescriptions given X 1. 21:01 Patient left the ED. rv Signatures: Regina Hollis mr Alissa, Britni, RN RN Flaco Cook MD MD rn Pena, Laura, RN RN lp1 Raj Bravo RN RN la1 Jessica Quiñones RN RN Vasquez Coe RN RN rv Corrections: (The following items were deleted from the chart) 21:51 21:47 Reassessment: Dr Rodriguez came in to see pt and after examination he decided that pt was to be discharged. fc
--- NOTE | 2018-09-15 18:18 | EDPHYS ---
Physician Documentation [facility] Name: Brennon Berg Age: 38 yrs Sex: Female : 1980 Arrival Date: 09/15/2018 Time: 16:20 Bed 28 Private MD: ED Physician Flaco Cook HPI: 09/15 17:25 This 38 yrs old Black Female presents to ER via Ambulatory with complaints of Abdominal rn Pain, Vomiting, Sickle Cell Crisis. 17:25 The patient presents to the emergency department with nausea, vomiting, abdominal pain. rn Onset: The symptoms/episode began/occurred yesterday. Possible causes:. Severity of symptoms: At their worst the symptoms were mild in the emergency department the symptoms are unchanged. The patient has experienced similar episodes in the past. Reports having sickle cell crisis, reports vague abd pain and joint pains, similar to previous attacks, but states last night threw up small amount of blood, also had nose bleed so unsure if blood from nosebleed or stomach. Single episode. Not having dark black stool. . Historical: - Allergies: 16:23 Fentanyl; la1 16:23 Morphine; la1 16:23 Reglan; la1 16:23 Stadol; la1 16:23 Toradol; la1 16:23 tramadol; la1 16:23 Trazodone; la1 16:23 Ultram; la1 16:23 Zofran; la1 - Home Meds: 20:57 gabapentin 300 mg Oral cap 1 cap 3 times per day [Active]; Hydrea 500 mg Oral cap TID rv [Active]; hydrocodone-acetaminophen 10-325 mg Oral tab [Active]; hydroxyurea 500 mg Oral cap 1 cap every 3 days [Active]; Keppra 250 mg Oral tab 1 tabs 2 times per day [Active]; promethazine 25 mg Oral tab [Active]; Xanax 2 mg Oral tab 2 times a day [Active]; - PMHx: 16:23 aplastic anemia; CVA; L sided weakness; Myocardial infarction; Seizures; Sickle Cell; la1 - PSHx: 20:57 None; rv - Immunization history:: Adult Immunizations up to date. - Social history:: Smoking status: Patient/guardian denies using tobacco. - Ebola Screening: : No symptoms or risks identified at this time. - Family history:: not pertinent. - Hospitalizations: : No recent hospitalization is reported. ROS: 17:25 Constitutional: Negative for fever, chills, and weight loss, Eyes: Negative for injury, rn pain, redness, and discharge, Neck: Negative for injury, pain, and swelling, Cardiovascular: Negative for chest pain, palpitations, and edema, Respiratory: Negative for shortness of breath, cough, wheezing, and pleuritic chest pain, Abdomen/GI: + abd pain/vomiting/diarrhea MS/Extremity: Negative for injury and deformity, Skin: Negative for injury, rash, and discoloration, Neuro: Negative for headache, weakness, numbness, tingling, and seizure. Exam: 17:25 Constitutional: This is a well developed, well nourished patient who is awake, alert, rn and in no acute distress. Walking to room without difficulty and no distress Head/Face: Normocephalic, atraumatic. ENT: MMM, no stridor Cardiovascular: Regular rate and rhythm, No pulse deficits. Respiratory: Lungs have equal breath sounds bilaterally, clear to auscultation, No increased work of breathing, no retractions or nasal flaring. Speaking full sentences Abdomen/GI: soft, mild epigsatric tenderness, no rebound MS/ Extremity: Pulses equal, no cyanosis. Neurovascular intact. Full, normal range of motion. Equal circumference. Neuro: Awake and alert, GCS 15, oriented to person, place, time, and situation. Cranial nerves II-XII grossly intact. Motor strength 5/5 in all extremities. Sensory grossly intact. Normal gait Vital Signs: 16:24 BP 126 / 89; Pulse 92; Resp 16; Temp 98.6(TE); Pulse Ox 98% on R/A; Weight 70.76 kg; la1 Height 5 ft. 3 in. (160.02 cm); 18:00 BP 141 / 89; Pulse 86; Resp 18; Pulse Ox 100% on R/A; rv 18:30 BP 137 / 76; Pulse 102; Resp 18; Pulse Ox 98% on R/A; rv 19:00 BP 137 / 82; Pulse 88; Resp 17; Pulse Ox 99% on R/A; rv 19:30 BP 139 / 93; Pulse 85; Resp 17; Pulse Ox 100% on R/A; rv 16:24 Body Mass Index 27.63 (70.76 kg, 160.02 cm) la1 MDM: 16:43 Patient medically screened. rn 17:57 Differential diagnosis: Nonspecific abd pain, pancreatitis, viral gastroenteritis, rn gastroenteritis, sickle cell crisis, Upper GI bleed. Data reviewed: vital signs, nurses notes, lab test result(s), and as a result, I will admit patient. Counseling: I had a detailed discussion with the patient and/or guardian regarding: the historical points, exam findings, and any diagnostic results supporting the discharge/admit diagnosis, lab results, the need for further work-up and treatment in the hospital. Response to treatment: the patient's symptoms have mildly improved after treatment, and as a result, I will admit patient. Admission orders: after a detailed discussion of the patient's condition and case, the admit orders are written by me. ED course: Pt with mild drop in hemoglobin to 6.9, + hematemesis at home, has never happened before, not in aplastic crisis, will admit to Dr Howard for pain control, and Upper GI bleed. . 18:52 ED course: Spoke with Dr. howard who evaluated patient, plan is to repeat hemoglobin rn and Dr. Otero will f/u results and determine disposition.. 09/15 16:44 Order name: Basic Metabolic Panel; Complete Time: 17:45 rn 09/15 16:44 Order name: CBC with Diff rn 09/15 16:44 Order name: Hepatic Function; Complete Time: 17:45 rn 09/15 16:44 Order name: Lipase; Complete Time: 17:45 rn 09/15 16:44 Order name: Retic Count rn 09/15 17:00 Order name: Urine Dipstick--Ancillary (enter results); Complete Time: 17:45 ms 09/15 17:00 Order name: Urine --Ancillary (enter results); Complete Time: 17:45 ms 09/15 17:42 Order name: Manual Differential EDOH 09/15 18:51 Order name: Hemoglobin rn 09/15 16:44 Order name: IV Saline Lock; Complete Time: 17:11 rn 09/15 16:44 Order name: Labs collected and sent; Complete Time: 17:11 rn 09/15 16:44 Order name: Urine Dipstick-Ancillary (obtain specimen); Complete Time: 17:09 rn 01/27 16:44 Order name: Urine Test (obtain specimen); Complete Time: 17:09 rn Administered Medications: 17:09 Drug: NS 0.9% 1000 ml Route: IV; Rate: 1000 ml; Site: Port-a-cath; rv 20:55 Follow up: IV Status: Completed infusion rv 17:21 Drug: Phenergan 12.5 mg Route: IVP; Site: Port-a-cath; rv 18:15 Follow up: Response: Pain is decreased rv 17:21 Drug: Benadryl 25 mg Route: IVP; Site: Port-a-cath; rv 18:15 Follow up: Response: Pain is decreased rv 17:23 Drug: Dilaudid 1 mg Route: IVP; Site: Port-a-cath; rv 18:15 Follow up: Response: Pain is decreased rv 18:00 Drug: ProTONIX 40 mg Route: IVP; Site: Port-a-cath; rv 20:54 Follow up: Response: Pain is decreased rv 18:00 Drug: Dilaudid 1 mg Route: IVP; Site: Port-a-cath; rv 20:54 Follow up: Response: Pain is decreased rv 19:00 Drug: Phenergan 12.5 mg Route: IVP; Site: Port-a-cath; rv 20:54 Follow up: Response: Pain is decreased rv 20:44 Drug: HEParin Flush 500 units Route: IVP; Site: Port-a-cath; fc 20:54 Follow up: Response: Medication administered at discharge. rv Disposition: 09/15/18 18:16 Hospitalization ordered by Juan Howard for Observation. Preliminary diagnosis are Hematemesis, Sickle-cell disorders, Anemia. - Bed requested for Telemetry/MedSurg (observation). - Status is Observation. rv - Condition is Stable. - Problem is new. - Symptoms have improved. UTI on Admission? No Signatures: Dispatcher [employer] EDMS Britni Maxwell RN RN fc Nieto, Roman, MD MD rn Attema, Lee, RN RN la1 Vasquez Coe RN RN rv Corrections: (The following items were deleted from the chart) 21:01 18:16 Hospitalization Ordered by Juan Howard DO for Observation. Preliminary rv diagnosis is Hematemesis; Sickle-cell disorders; Anemia. Bed requested for Telemetry/MedSurg (observation). Status is Observation. Condition is Stable. Problem is new. Symptoms have improved. UTI on Admission? No. rn
[2018-09-15 19:43] LABS: Anisocytosis 3+; Blood Morphology Comment NOTED (NOT SEEN); Hypochromasia 1+; Macrocytosis 1+; Platelet Estimate ADEQ; Platelets, Giant PRESENT
[2018-09-15 19:44] LABS: Ovalocytes 1+; Polychromasia 2+; Target Cells 1+
[2018-09-15] MEDS ORDERED: DIPHENHYDRAMINE 25 MG TAB/CAP ONE (19:57)
--- NOTE | 2018-09-15 20:25 | P.SSS ---
Patient History Date of Service: 09/15/18 Reason for admission: nausea and vomiting History of Present Illness: Ms Berg is a 38 years old woman with history of sickle cell disease, HTN, CVA, seizure, well known due to frequent admissions, came to ED complaining of abdominal pain associated with N/V. She denied fever or chills. Her symptoms start about 1 week ago, but today got worse. She denied chest pain or shortness of breath. Lab work remarkable for 18.4 K WBC count, Hgb 6.9 mg/dl probably about her baseline, vitals signs stable. Allergies butorphanol tartrate [From Stadol] Allergy (Severe, Verified 08/11/17 06:27) seizures ketorolac tromethamine [From Toradol] Allergy (Severe, Verified 08/11/17 06:27) SEIZURES ondansetron HCl [From Zofran] Allergy (Severe, Verified 08/11/17 06:27) SEIZURES morphine Allergy (Intermediate, Verified 08/11/17 06:27) Hives fentanyl Allergy (Verified 04/16/18 03:32) Itching/Hives/Rash ondansetron [From Zofran (as hydrochloride)] Allergy (Verified 04/16/18 03:32) seizures tramadol Allergy (Verified 08/11/17 06:27) seizure trazodone Allergy (Verified 08/11/17 06:27) seizure metoclopramide [From Reglan] Adverse Reaction (Verified 08/11/17 06:27) SEIZURES Zofran (as Allergy (Uncoded 08/11/17 06:27) Unknown Zofran (as hydrochl Allergy (Uncoded 08/11/17 06:27) Unknown Zofran (as hydrochlori Allergy (Uncoded 08/11/17 18:30) Unknown Zofran (as hydrochloride) Allergy (Uncoded 12/01/17 03:47) Unknown Home medications list reviewed: Yes Home Medications: ALPRAZolam [Xanax*] 2 mg PO TID PRN 03/07/17 Hydrocodone 10/APAP 325 [[place] 10/325*] 2 tab PO Q4H PRN 03/07/17 Hydroxyurea [Hydrea*] 500 mg PO TID 03/07/17 Promethazine HCl 25 mg PO Q4H PRN 03/07/17 hydrOXYzine HCl [Atarax] 50 mg PO BID PRN 03/07/17 levETIRAcetam [Keppra*] 250 mg PO TID 03/07/17 Pantoprazole Sodium [Protonix] 40 mg PO DAILY #30 tablet. 09/15/18 - Past Medical/Surgical History Diabetic: No -: Sickle cell disease -: History of CVA -: CAD -: Hypertension -: Seizure disorder -: Insomnia -: ID -: Endocarditis -: Right axillary lumpectomy -: Splenectomy -: Cholecystectomy -: Partial hysterectomy -: 6 portacaths -: 6 piccs -: Psychosocial/ Personal History: The patient is . She has 2 children. - Family History Father -: Heart disease, Hypertension Mother -: Hypertension - Social History Alcohol use: No CD- Drugs: No Caffeine use: Yes Place of Residence: Home Physical Examination - Physical Exam General: Alert, In no apparent distress HEENT: Atraumatic, PERRLA, Mucous membr. moist/pink, EOMI, Sclerae nonicteric Neck: Supple, 2+ carotid pulse no bruit, No LAD, Without JVD or thyroid abnormality Respiratory: Clear to auscultation bilaterally, Normal air movement Cardiovascular: Regular rate/rhythm, Normal S1 S2 Gastrointestinal: Normal bowel sounds, No tenderness Musculoskeletal: No tenderness Integumentary: No rashes Neurological: Normal speech, Normal strength at 5/5 x4 extr, Normal tone, Normal affect Lymphatics: No axilla or inguinal lymphadenopathy - Studies Laboratory Data (last 24 hrs) 09/15/18 17:05: WBC 18.4 H, Hgb 6.9 L*, Hct 20.3 L*, Plt Count 366 09/15/18 17:05: Sodium 137, Potassium 3.8, BUN 11, Creatinine 0.73, Glucose 106 , Total Bilirubin 4.0 H, AST 193 H, ALT 110 H, Alkaline Phosphatase 185 H, Lipase 166 Treatment Summary: Ms Berg was evaluated to be admitted to the hospital for possible sickle cell flare up. Repeated Hgb showed 6.6 mg/dl, close to previous value and likely similar to her baseline. At this point her symptoms may be secondary to acid reflux, since she improved after receive PPI in ER. Will discharge her home with oral protonix, resume her home medicatin and recommend to follow up with her PCP next week. Come back to ED if symptoms get worse. - Disposition Disposition: ROUTINE DISCHARGE Condition: GOOD Patient Discharge Instructions: F/U with PCP next week. Diet: AHA Activity: Ad beata
[2018-09-15] MEDS ORDERED: HEPARIN 500 UNIT/5 ML SYR IV ONE (20:50)
[2018-09-15 21:06] VITALS: TEMP 98.6
[2018-09-15 21:11] VITALS: BP 139/93; O2SAT 100
== END 2018-09-15 20:53 | disposition home or self-care (01) ==
LOC: ER 16:17 → UNDOADMOB 18:16 → ERHOLD 18:16 → ER 20:53 → UNDODISOB 20:53
DX: D57.1 Sickle-cell disease without crisis (principal); D64.9 Anemia, unspecified; K92.0 Hematemesis; Z86.73 Personal history of transient ischemic attack (TIA), and cerebral infarction without residual deficits
CPT/HCPCS: 36415; 80048; 80076; 81003; 81025; 83690; 85018; 85025; 85044; 96361; 96374; 96375; 99284; C9113; G0378 ×2; J1170 ×2; J1642; J2550 ×2; J7030 ×2

== ENCOUNTER 2018-09-25 13:10 | Emergency (ER) | payer OTHER ==
--- OUTSIDE RECORDS SUMMARY | 2018-09-25 13:15 | XMS REPORT | Clinical Summary ---
:1980 Author Organization [facility] Address [address] [place] [address] Care Team Providers Name Role Phone Kwesi Guaman MD Primary Care Provider Unavailable Chavo Pate Unavailable Allergies Active Allergy Reactions Severity Noted Date Comments Morphine Other (See Comments) 11/27/2013 seizures Butorphanol Tartrate Other (See Comments) 11/27/2013 seizures Zxo-Lc-Bwn-Cokrjlwc-Fdoye-Ypoh 10/01/2014 seizure Ketorolac Other (See Comments) 11/27/2013 [...] (HCC) (Primary Traci Obregon, RN Dx) after 09/24/2017 Family History Medical History Relation Name Comments [...] SERVICE 09/28/2017 5:44 REPORT - SCAN PM [employer] PREPARE LEUKO-REDUCED Routine 09/27/2017 11:54 Symptomatic anemia Results for this RBC [employer] procedure are in the results section. TRANSFUSION SERVICE 09/27/2017 5:44 REPORT - SCAN PM [employer] TRANSFUSION SERVICE 09/26/2017 5:43 REPORT - SCAN PM [employer]IVER TRANSFUSION SERVICE 09/26/2017 5:43 REPORT - SCAN PM [employer] ANTIBODY IDENTIFICATION Routine 09/26/2017 5:40 Results for this PM [employer] procedure are in the results section. 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 after 09/24/2017 Results EKG-SCANNED (02/11/2018 10:10 AM CDT) Narrative Performed At Manual Differential (02/08/2018 5:03 AM CDT)Only the most recent of9 resultswithin the time period is included. % Neutros 66 % [facility] % Lymphs 22 % [facility] % Monos 8 % [facility] % Eos 3 % [facility] # Neutros 9.44 (H) 1.56 - 6.13 K/ul [facility] # Lymphs 3.15 1.18 - 3.74 K/ul [facility] # Monos 1.14 (H) 0.24 - 0.36 K/uL [facility] # Eos 0.43 (H) 0.04 - 0.36 K/uL [facility] Total Counted 100 [facility] nRBC (manual) 5 (H) 0 - 0 /100 WBC [facility] WBC Morphology Normal [facility] Platelet Morphology Normal [facility] Anisocytosis 2+ moderate [facility] Macrocytes 1+ few [facility] Target Cells 1+ few [facility] Sickle Cells 1+ few [facility] Doty-Carlisle-Rockledge Bodies 1+ few [facility] Artifact Present [facility] Platelet Conc Adequate [facility] Specimen Blood - Central Venous Line Narrative Performed At Received comment: [facility] User comments: Slide comments: Performing Organization Address City/State/Zipcode Phone Number [facility] [address] [place] [address] [phone] CENTER CBC with platelet count + automated diff (02/08/2018 5:03 AM CDT)Only the most recent of28 resultswithin the time period is included. WBC 14.3 (H) 3.5 - 10.5 K/L [facility] RBC 2.54 (L) 3.93 - 5.22 M/L [facility] Hemoglobin 7.3 (L) 11.2 - 15.7 GM/DL [facility] Hematocrit 23.4 (L) 34.1 - 44.9 % [facility] MCV 92.1 79.4 - 94.8 fL [facility] MCH 28.7 25.6 - 32.2 pg [facility] MCHC 31.2 (L) 32.2 - 35.5 GM/DL [facility] RDW 21.4 (H) 11.7 - 14.4 % [facility] Platelets 239 150 - 450 K/CU MM [facility] MPV 11.0 9.4 - 12.3 fL [facility] nRBC 4 (H) 0 - 0 /100 WBC [facility] Specimen Blood - Central Venous Line Performing Organization Address City/[facility]/Zipcode Phone Number [facility] [address] [place] [address] CENTER Basic Metabolic Panel (02/08/2018 5:03 AM CDT)Only the most recent of30 resultswithin the time period is included. Sodium 138 136 - 145 meq/L [facility] Potassium 5.9 (H) 3.5 - 5.1 meq/L [facility] Chloride 102 98 - 107 meq/L [facility] CO2 30 (H) 22 - 29 meq/L [facility] BUN 15 7 - 21 mg/dL [facility] Creatinine 0.68 0.57 - 1.25 mg/dL [facility] Glucose 87 70 - 105 mg/dL [facility] Calcium 9.6 8.4 - 10.2 mg/dL [facility] EGFR 117Comment: ESTIMATED GFR IS mL/min/1.73 sq m [facility] NOT ACCURATE CREATININE [facility] CLEARANCE IN PREDICTING GLOMERULAR FILTRATION RATE. ESTIMATED GFR IS NOT APPLICABLE FOR DIALYSIS PATIENTS. Specimen Blood - Central Venous Line Performing Organization Address City/[facility]/Zipcode Phone Number [facility] [address] [place] [address] CENTER Manual Differential (02/06/2018 5:58 AM CDT)Only the most recent of11 resultswithin the time period is included. % Neutros (manual) 64 % [facility] % Lymphs (manual) 22 % [facility] % Monos (manual) 8 % [facility] % Eos (manual) 6 % [facility] % Baso (manual) 0 % [facility] # Neutros (manual) 8.26 (H) 1.80 - 8.00 K/L [facility] # Lymphs (manual) 2.84 1.48 - 4.50 K/L [facility] # Monos (manual) 1.03 0.00 - 1.30 K/L [facility] # Eos (manual) 0.77 (H) 0.00 - 0.50 K/L [facility] # Baso (manual) 0.00 0.00 - 0.20 K/L [facility] Total Counted 100 [facility] nRBC (manual) 8 (H) 0 - 0 /100 WBC [facility] WBC Morphology Normal [facility] Platelet Morphology Normal [facility] Anisocytosis 2+ moderate [facility] Sickle Cells 2+ moderate [facility] Specimen Blood - Central Venous Line Performing Organization Address City/State/Zipcode Phone Number [facility] [address] [place] [address] CENTER TRANSFUSION SERVICE REPORT - SCAN (02/05/2018 6:00 PM CDT)Only the most recent of15 resultswithin the time period is included. Narrative Performed At Prepare Leuko-Red RBC (02/04/2018 11:54 PM CDT)Only the most recent of5 resultswithin the time period is included. Unit ABO O Pos [place] UNIT NUMBER [id number] [place] Status WORK IN PROGRESS [place] Blood [facility] Product RED BLOOD CELLS [place] PRODUCT CODE [id number] [place] Unit ABO O Pos [place] UNIT NUMBER [id number] [place] Status WORK IN PROGRESS [place] Blood Bank Product RED BLOOD CELLS [place] PRODUCT CODE [id number] [place] CROSSMATCH COMPATIBLE [place] Unit ABO O Pos [place] UNIT NUMBER [id number] [place] Status TRANSFUSED [place] Blood Bank Product RED BLOOD CELLS [place] PRODUCT CODE [id number] [place] CROSSMATCH COMPATIBLE [place] Unit ABO O Pos [place] UNIT NUMBER [id number] [place] Status TRANSFUSED [place] Blood Bank Product RED BLOOD CELLS [place] PRODUCT CODE [id number] [place] Specimen Other Performing Organization Address City/[facility]/Zipcode Phone Number [place] Transfuse Leuko-Red RBC (02/03/2018 10:59 PM CDT)Only the most recent of12 resultswithin the time period is included.Type and screen, automated (2017 8:30 AM CDT)Only the most recent of5 resultswithin the time period is included. ABO/RH AUTOMATED (BEAKER) O POSITIVE [facility] Ab Scrn POSITIVEComment: Antibody [facility] identified within 7 days [facility] Specimen Blood Performing Organization Address City/[facility] Phone Number [facility] [address] [place] [address] Urinalysis w/Microscopic (02/01/2018 7:45 PM CDT)Only the most recent of4 resultswithin the time period is included. Color, UA Yellow [facility] Clarity, UA Hazy [facility] Specific [place], UA 1.009 1.001 - 1.035 [facility] pH, UA 5.5 5.0 - 8.0 [facility] Protein, UA 20 mg/dL (A) Negative [facility] Glucose, UA Negative Negative [facility] Ketones, UA Negative Negative [facility] Bilirubin, UA Negative Negative [facility] Blood, UA Small (A) Negative [facility] Nitrite, UA Negative Negative [facility] Leukocytes, UA Small (A) Negative [facility] Urobilinogen, UA 0.2 0.2 - 1.0 mg/dL [facility] RBC, UA 1 /HPF [facility] WBC, UA 4 /HPF [facility] Bacteria, UA Few [facility] Mucus Occasional [facility] Squam Epithel, UA 8 /HPF [facility] Specimen Source Urine, Voided [facility] Specimen Urine - Urine, Voided Performing Organization Address City[facility] Phone Number [address] [address] CENTER Antibody identification (01/30/2018 3:13 PM CDT)Only [...] Signature: Kaushik Flores M.D. Performing Organization Address City/[facility] Phone Number [place] Reticulocyte count (01/29/2018 4:28 PM CDT) % Retic >30.0 (H) 0.5 - 1.7 % [facility] Specimen Blood Performing Organization Address City/[facility]/Zipcode Phone Number [address] [address] CENTER Lactate dehydrogenase (LDH) (01/29/2018 4:28 PM CDT)Only the most recent of2 resultswithin the time period is included. LDH 989 (H) 125 - 220 U/L [facility] Specimen Blood Performing Organization Address [facility] Phone Number [address] [address] [phone] [place] Ferritin (01/29/2018 4:28 PM CDT)Only the most recent of2 resultswithin the time period is included. Ferritin 22,730 (H) 5 - 275 ng/mL [facility] Specimen Blood Performing Organization Address [facility] Phone Number [address] [address] [place] CARDIAC CATH REPORT - SCAN (11/27/2017 8:52 PM CDT) Narrative Performed At Calcium, Ionized (11/25/2017 4:38 AM CDT)Only the most recent of14 resultswithin the time period is included. Calcium, Ion 1.10 (L) 1.12 - 1.27 mmol/L [facility] pH, Blood 7.30 [facility] Specimen Blood Performing Organization Address [facility] [place] Phone Number [address] [address] [place] Phosphorus (11/25/2017 4:38 AM CDT)Only the most recent of15 resultswithin the time period is included. Phosphorus 4.7 2.3 - 4.7 mg/dL [facility] Specimen Blood Performing Organization Address [facility] [place] Phone Number [address] [address] CENTER Magnesium (11/25/2017 4:38 AM CDT)Only the most recent of16 resultswithin the time period is included. Magnesium 1.4 (L) 1.6 - 2.6 mg/dL [facility] Specimen Blood Performing Organization Address [facility] Phone Number [address] [address] [phone] CENTER Uric acid (11/24/2017 5:36 AM CDT) Uric Acid 4.8 2.6 - 7.2 mg/dL [facility] Specimen Blood Performing Organization Address City/State/Zipcode Phone Number [address] [address] [place] Creatine Kinase (CK) (11/24/2017 5:36 AM CDT) Total CK 8 (L) 29 - 200 U/L [facility] Specimen Blood Performing Organization Address [facility] Phone Number [address] [address] [place] Potassium (11/23/2017 5:35 PM CDT)Only the most recent of3 resultswithin the time period is included. Potassium 5.5 (H) 3.5 - 5.1 meq/L [facility] Specimen Blood - Central Venous Line Narrative Performed At Call if K > 5.4 to renal [phone] [facility] Performing Organization Address [facility] Phone Number [address] [address] CENTER Electrolytes (11/22/2017 12:30 PM CDT) Sodium 137 136 - 145 meq/L [facility] Potassium 5.4 (H) 3.5 - 5.1 meq/L [facility] Chloride 100 98 - 107 meq/L [facility] CO2 30 (H) 22 - 29 meq/L [facility] Specimen Blood - Portacath Narrative Performed At Call results [phone] [facility] Performing Organization Address City/State/Zipcode Phone Number [address] [address] CENTER B-type Natriuretic Factor (BNP) (11/21/2017 4:56 AM CDT)Only the most recent of3 resultswithin the time period is included. BNP 120 (H) 0 - 100 pg/mL [facility] Specimen Blood Performing Organization Address City/State/Zipcode Phone Number [address] [address] [phone] [place] Blood gas, venous (11/20/2017 6:44 AM CDT) pH, Moises 7.34 7.32 - 7.42 [facility] pCO2, Moises 63 (H) 41 - 51 mmHg [facility] pO2, Moises 133 (H) 25 - 40 mmHg [facility] O2 Sat, Moises 98.4 (H) 40.0 - 70.0 % [facility] HCO3, Moises 33 (H) 21 - 29 mmol/L [facility] Base Excess, Moises 6.6 (H) -2.0 - 3.0 mmol/L [facility] Patient Temperature 37.0 C [facility] FIO2 21.0 % [facility] Specimen Blood Performing Organization Address City/State/Zipcode Phone Number [address] [address] [phone] [place] CBC (Hemogram only) (11/19/2017 6:25 AM CDT) WBC 15.3 (H) 3.5 - 10.5 K/L [facility] RBC 2.42 (L) 3.93 - 5.22 M/L [facility] Hemoglobin 7.1 (L) 11.2 - 15.7 GM/DL [facility] Hematocrit 22.5 (L) 34.1 - 44.9 % [facility] MCV 93.0 79.4 - 94.8 fL [facility] MCH 29.3 25.6 - 32.2 pg [facility] MCHC 31.6 (L) 32.2 - 35.5 GM/DL [facility] RDW 20.9 (H) 11.7 - 14.4 % [facility] Platelets 324 150 - 450 K/CU MM [facility] MPV 11.8 9.4 - 12.3 fL [facility] nRBC 1 (H) 0 - 0 /100 WBC [facility] Specimen Blood - Central Venous Line Performing Organization Address [facility] Phone Number [address] [address] CENTER Hepatic function panel (11/17/2017 4:51 AM CDT)Only the most recent of2 resultswithin the time period is included. Protein, Total 8.3 6.0 - 8.3 gm/dL [facility] Albumin 3.0 (L) 3.5 - 5.0 g/dL [facility] Total Bilirubin 1.3 (H) 0.2 - 1.2 mg/dL [facility] Bilirubin, Direct 0.7 (H) 0.1 - 0.5 mg/dL [facility] Alkaline Phosphatase 217 (H) 40 - 150 U/L [facility] AST 106 (H) 5 - 34 U/L [facility] ALT 46 6 - 55 U/L [facility] Specimen Blood - Central Venous Line Performing Organization Address City/[facility]/Zipcode Phone Number [facility] [address] [place] [phone] CENTER Prepare RBC (11/16/2017 11:55 PM CDT) Unit ABO O Pos [place] UNIT NUMBER [id number] [place] Status TRANSFUSED [place] Blood Bank Product RED BLOOD CELLS [place] PRODUCT CODE [id number] [place] Unit ABO O Pos [place] UNIT NUMBER [id number] [place] Status TRANSFUSED [place] Blood Bank Product RED BLOOD CELLS [place] PRODUCT CODE [id number] [place] CROSSMATCH COMPATIBLE S[place] CROSSMATCH COMPATIBLE [place] Performing Organization Address City/[facility]/Zipcode Phone Number [place] XR chest 2 [...] Report Verified Date/Time: 11/16/2017 10:47:19 Reading Location: [facility] Radiology Reading Room Performing Organization Address City/State/[facility] Phone Number GE RIS XR mandible less [...] Location: [facility] Radiology Reading Room Performing Organization Address City/State/Zipcode Phone Number RIS Anti-Mitochondrial Ab, reflex to titer (11/16/2017 9:35 AM CDT) Scan Result [facility] Specimen Blood - Central Venous Line Narrative Performed At Performing Organization Address City/State/Zipcode Phone Number [facility] [place] [address] [facility] [phone] [facility] Actin (Smooth Muscle) Antibody, IgG (11/16/2017 9:35 [...] Lab [facility] EZ [facility] [address] [address] Irwin Marquez MD, PhD Performing Organization Address [facility] Phone Number [place] [address] [facility]POR[facility] [address] [facility] AMARILYS Titer & Pattern (11/16/2017 9:35 AM CDT) AMARILYS Titer 1:160 [facility] AMARILYS Pattern Multiple nuclear dots pattern [facility] Specimen Blood - Central Venous Line Performing Organization Address [facility] Phone Number [address] [address] [place] Hepatitis panel, acute (11/16/2017 9:35 AM CDT) Hep A IgM HEPATITIS A TEST NEGATIVE Nonreactive [facility] Hep B C IgM NON-REACTIVE Nonreactive [facility] Hepatitis C Ab NON-REACTIVE Nonreactive [facility] hepatitis B Surface Ag NON-REACTIVE Nonreactive [facility] Specimen Blood - Central Venous Line Performing Organization Address [facility] Phone Number [address] [address] [phone] CENTER Anti-Nuclear Antibody (AMARILYS) (11/16/2017 9:35 AM CDT) AMARILYS Positive (A) Negative [facility] Specimen Blood - Central Venous Line Performing Organization Address [facility] Phone Number [address] [address] [phone] CENTER XR abdomen / KUB 1 view (11/15/2017 12:05 PM CDT) Narrative Performed At FINAL REPORT [employer] RIS Abdomen one view INDICATION: Abdominal pain [...] Location: [facility] Radiology Reading Room Performing Organization Address City/State/Zipcode Phone Number GE RIS US Endovaginal (11/15/2017 7:00 AM CDT) Narrative Performed At FINAL REPORT [employer] TECHNIQUE: Transvaginal grayscale ultrasound of the pelvis [...] MD Report Verified Date/Time:11/15/2017 09:03:15 Reading Location: [address] Ultrasound Reading Room Procedure Note [...] Report Verified Date/Time: 11/15/2017 09:03:15 Reading Location: [address] Ultrasound Reading Room Performing Organization Address City/State/Zipcode Phone Number [facility] Lipase (11/15/2017 5:30 AM CDT) Lipase 95 (H) 8 - 78 U/L [facility] Specimen Blood - Central Venous Line Performing Organization Address City/[facility]/Zipcode Phone Number [facility] [address] [place] [address] [phone] [place] Urine culture (11/14/2017 6:19 AM CDT) Result >100,000 col/mL skin valentino [facility] Specimen Urine - Urine, Clean Catch Performing Organization Address [facility] Phone Number [facility] [address] [place] [phone] [place] Blood culture (11/13/2017 11:20 PM CDT)Only the most recent of2 resultswithin the time period is included. Result No growth in 5 days [facility] Specimen Blood - Portacath Performing Organization Address [facility] Phone Number [address] [address] [place] ECHOCARDIOGRAM REPORT - SCAN (11/10/2017 1:20 PM CDT) Narrative Performed At Comprehensive metabolic panel (11/10/2017 5:56 AM CDT)Only the most recent of4 resultswithin the time period is included. Protein, Total 8.2 6.0 - 8.3 gm/dL [facility] Albumin 3.1 (L) 3.5 - 5.0 g/dL [facility] Alkaline Phosphatase 154 (H) 40 - 150 U/L [facility] Total Bilirubin 1.4 (H) 0.2 - 1.2 mg/dL [facility] Sodium 140 136 - 145 meq/L [facility] Potassium 4.0 3.5 - 5.1 meq/L [facility] Chloride 109 (H) 98 - 107 meq/L [facility] CO2 19 (L) 22 - 29 meq/L [facility] BUN 21 7 - 21 mg/dL [facility] Creatinine 1.27 (H) 0.57 - 1.25 mg/dL [facility] Glucose 122 (H) 70 - 105 mg/dL [facility] Calcium 8.6 8.4 - 10.2 mg/dL [facility] AST 72 (H) 5 - 34 U/L [facility] ALT 50 6 - 55 U/L [facility] EGFR 57Comment: ESTIMATED GFR mL/min/1.73 sq m [facility] IS NOT ACCURATE [facility] CREATININE CLEARANCE IN PREDICTING GLOMERULAR FILTRATION RATE. ESTIMATED GFR IS NOT APPLICABLE FOR DIALYSIS PATIENTS. Specimen Blood - Central Venous Line Performing Organization Address City/State/Zipcode Phone Number [place] [phone] [place] [address] CENTER 2D Echo W/Doppler(CW/PW/Color) (11/09/2017 6:46 PM CDT) Ejection Fraction [facility] Narrative Performed At Transthoracic Echocardiography Report (TTE) [facility] Demographics Patient NameSMITH, ALEESHIADate of Study11/09/2017 DIANA Gender Female Visit [id number] Race Black [id number] Number Date of 1980 [facility] Physician Age 37 year(s) SonographerMantione Price RDCS Interpreting [facility] Needs to be Pre PhysicianLisette Maldonado MD [...] Study 11/09/2017 DIANA Gender Female Visit Number [id number] Race Black Room Number [id number] Number Date of 1980 Referring Neal Lezama Physician Age 37 year(s) Sour Bleaching Pleater Lou Melhem RDCS Interpreting [facility] Needs to [...] Velocity: 2.91 m/s TR Gradient: 33.98 mmHg [facility] Organization Address City/State/Zipcode Phone Number [facility] CPACS XR chest 1 view portable / bedside (11/08/2017 7:20 PM CDT) Narrative Performed At FINAL REPORT [facility] EXAMINATION:AP PORTABLE CHEST RADIOGRAPH CLINICAL [...] Report Verified Date/Time:11/08/2017 20:41:24 Reading Location: [address] Reading Room Procedure Note Interface, External [...] Verified Date/Time: 11/08/2017 20:41:24 Reading Location: [address] Reading Room Performing Organization Address City/State/Zipcode Phone Number [facility] Sodium, random urine (11/08/2017 5:33 AM CDT) Sodium Urine 65 meq/L [facility] Specimen Urine - Urine, Voided Narrative Performed At [facility] Reference Range: No Normals Performing Organization Address [facility] Phone Number [address] [address] [place] Protein, random urine (11/08/2017 5:33 AM CDT) Protein, Urine 24 (H) 0 - 14 mg/dL [facility] Specimen Urine - Urine, Voided Performing Organization Address [facility] [place] Phone Number [address] [address] [place] Creatinine, random urine (11/08/2017 5:33 AM CDT) Creatinine, Ur 46.0 mg/dL [facility] Specimen Urine - Urine, Voided Narrative Performed At [facility] Reference Range: No Normals Performing Organization Address [facility] [place] Phone Number [address] [address] [place] Eosinophil smear (11/08/2017 5:33 AM CDT) Eosinophil Smear No EOS seen No EOS seen [facility] Specimen Urine - Urine, Voided Performing Organization Address [facility] [place] Phone Number [address] [address] [phone] [place] [address] abdomen/pelvis without iv contrast (11/08/2017 3:01 [...] MD Report Verified Date/Time:11/08/2017 08:29:54 Reading Location: [facility] Diagnostic Imaging Reading Room - [place] [id number] Procedure Note Interface, External Ris In [...] Report Verified Date/Time: 11/08/2017 08:29:54 Reading Location: [facility] Diagnostic Imaging Reading Room - [place] [address] Performing Organization Address City/State/Zipcode Phone Number [facility] US abdomen complete (11/07/2017 7:27 PM CDT) Narrative Performed At FINAL REPORT [facility] Abdominal ultrasound Clinical History:Abdominal pain Discussion: Sonographic [...] MD Report Verified Date/Time:11/07/2017 19:58:17 Reading Location: [facility] Consult Reading Room Procedure Note Interface, External [...] Report Verified Date/Time: 11/07/2017 19:58:17 Reading Location: [facility] Consult Reading Room Performing Organization Address City/State/Zipcode Phone Number [facility] Lactic acid, venous, whole blood (11/07/2017 3:32 PM CDT) Lactate, Venous 0.9Comment: Specimen 0.5 - 2.2 mmol/L [facility] slightly hemolyzed [facility] Specimen Blood - Central Venous Line Narrative Performed At [facility] Effective 12/22/2015: Units/Reference Range Change New: 0.5-2.2 mmol/LPrevious: 5-20 mg/dL Performing Organization Address City/State/Zipcode Phone Number [facility] [address] [place] [address] CENTER after 09/24/2017 Insurance Payer Benefit Plan / Group Subscriber ID Type Phone Address [employer] - MEDICARE UNITED MED[employer]ARE HMO xxxxxxxxx MGD CARE Advance Directives For more information, please contact:[address] [phone] Code Status Date Activated Date Inactivated Comments [...]
--- OUTSIDE RECORDS SUMMARY | 2018-09-25 13:16 | XMS REPORT | Continuity of Care Document ---
:1980 Author Organization Interface Problems Problem Status Onset Classification Date Comments Source Date Reported SICKLE CELL CRISIS Active 09/08/[address] Final: 09/13/2014 [facility] Aplastic anemia Resolved Problem 09/13/2014 [facility] CVA - Resolved Problem 09/13/2014 [facility] Cerebrovascular [facility] accident Center Sickle cell anemia Resolved Problem 09/13/2014 [facility] TIA Resolved Problem 09/13/2014 [facility] HB-SS DISEASE W Active [facility] Medications Medication Details Route Status Patient Ordering Order Source Instructions Provider Date 12 HR Oxymorphone 30 mg=1 tab, Active [facility] Hydrochloride 30 PO, Q12H, 0 2014 Medical MG Extended Refill(s) Center Release Tablet [Opana] Lovenox 40 mg, 0.4 mL, No Longer [facility] Route: SUB-Q, Active 2014 Medical Drug form: INJ, Center [id number], Dosing Weight 70.591, kg, Start date: 09/10/14 19:00:00, Duration: 30 day, Stop date: 10/09/14 19:00:00Notes: (Same as: Lovenox) Promethazine 12.5 mg, 0.5 No Longer [facility] mL, Route: Active 2014 Medical IVPB, Drug Center form: INJ, Q4H, Dosing Weight 70.591, kg, PRN Nausea & Vomiting, Start date: 09/10/14 17:52:00, Duration: 30 day, Stop date: 10/10/14 17:51:00Notes: Do not give IV push. (Same as: Phenergan) Hydromorphone 15 mg, 30 mL, No Longer [facility] Route: IV, Active 2014 Medical Initial Loading Center Dose: 0.4mg, [employer] Dose: 0.2 mg, [employer] Lockout: 10 minutes, Continuous Basal Rate: 0 mg, 4 Hour Limit (In MG): 3, Drug Form: INJ, Continuous, Start date: 09/10/14 11:00:00, Duration: 30 day, Stop date: 10/10/14 10:...Notes: (Same as: Dilaudid) conc=0.5 mg/ml Hydromorphone [employer] Dose: ;Delay: ;Basal: Naloxone 0.04 mg, 0.1 [...] Drug 2015 Medical MG/ML Topical form: CRM, [place] Cream [Benadryl] Start date: 09/09/14 3:43:00, Stop [...] Source type Reported morphine Assertion Drug Active [facility] Stadol Assertion Drug Active [facility] Toradol Assertion Drug Active [facility] traMADol Assertion Drug Active [facility] Zofran Assertion Drug Active [facility] Immunizations Immunization Date Given Site Status Last Updated Comments Source Results Order Name Results Value Reference Date Interpretation Comments Source Range CHEM PANEL LDH 507 unit/L 98 - 192 09/11 [facility] ELECTROLYTE AGAP 10.8 meq/L 10.0 - 09/11 [facility] S 20.0 [facility] ELECTROLYTE Calcium Lvl 8.4 mg/dL 8.5 - 10.5 09/11 [facility] ELECTROLYTE CO2 27 meq/L 24 - 32 09/11 [facility] ELECTROLYTE Chloride Lvl 108 meq/L 95 - 109 09/11 [facility] ELECTROLYTE eGFR 130 09/11 3Result Comment: The eGFR is calculated using the CKD-EPI formula. In most young, healthy individuals the eGFR will be > 90 mL/min/1.73m2. The eGFR declines with age. An eGFR of 60-89 may be normal in [facility] mL/min/1.73 some populations, particularly the elderly, for whom the CKD-EPI formula has not been extensively validated. Use of the eGFR is not recommended in the following populations: [place] [address] Center Individuals with unstable creatinine concentrations, including [...] BMI. ELECTROLYTE BUN 4 mg/dL - 09/11 [facility] ELECTROLYTE Glucose Lvl 82 mg/dL 70 - 99 09/11 6Interpretive Data: Adult reference range values reflect the clinical guidelines [facility] of [employer] [place] [employer]. [facility] ELECTROLYTE Sodium Lvl 142 meq/L 135 - 145 09/11 [facility] ELECTROLYTE Creatinine 0.7 mg/dL 0.5 - 1.4 09/11 [facility] ELECTROLYTE Potassium 3.8 meq/L 3.5 - 5.1 09/11 [facility] HEMATOLOGY Retic Auto 16.5 % 0.5 - 1.5 09/11 [facility] HEMATOLOGY RDW 25.5 % 11.5 - 09/11 [facility] 14. [facility] HEMATOLOGY MPV 8.6 fL 7.4 - 10.4 09/11 [facility] HEMATOLOGY Platelet 213 K/CMM 133 - 450 09/11 [place] /2014 [facility] HEMATOLOGY Hct 19.8 % 36.0 - 09/11 [place] 48.0 /2014 [facility] HEMATOLOGY Hgb 6.7 g/dL 12.0 - 09/11 9Result [place] 16.0 /2014 Comment: [facility] Critical Center Result(s) called to [...] Positive 1 09/10 1Result Comment: 09/10/2014 09:24 [id number] [facility] RESULTS Scrn "Significant Findings of Positive Antibody Screen called to Magan Stnison at 0920 by SI. Read Back OK" Medical (09/10/14 8:01 AM) [place] BLOOD BANK ABO/Rh O POS 09/10 [place] RESULTS [facility] BLOOD BANK Path MEGHAN This 09/10 [facility] RESULTS patient Medical a positive [place] Direct Antiglobuli n Test (MEGHAN) with IgG [...] and concur with the resident's interpretat ion.CPT: 55484-XQ BLOOD BANK Path AB Current 09/10 [facility] RESULTS testing Medical shows the Center [...] and concur with the resident's interpretat ion.CPT: 62483-TS BLOOD BANK HX Antigen Le(a) neg 09/10 [...] Antigen Fy(a) pos 09/10 [place] RESULTS /2014 [facility] Center BLOOD BANK HX Antigen C pos 09/10 [place] RESULTS /2014 [facility] Center BLOOD BANK HX Antigen E neg 09/10 [place] RESULTS /2014 [facility] Center BLOOD BANK HX Antigen Cw neg 09/10 [place] RESULTS /2014 [facility] Center BLOOD BANK HX Antigen M pos 09/10 [place] RESULTS /2014 [facility] Center BLOOD BANK HX Antigen s pos 09/10 [place] RESULTS /2014 [facility] Center BLOOD BANK HX Antigen c neg 09/10 [place] RESULTS /2014 [facility] Center BLOOD BANK HX Antigen N neg 09/10 [place] RESULTS /2014 [facility] Center BLOOD BANK HX Antigen P1 pos 09/10 [place] RESULTS /2014 [facility] Center BLOOD BANK HX Antigen S neg 09/10 [place] RESULTS /2014 [facility] Center BLOOD BANK HX Antigen Le(b) neg 09/10 [place] RESULTS /2014 [facility] Center BLOOD BANK HISTORICAL Anti-S 09/10 [place] RESULTS AB [facility] BLOOD BANK HISTORICAL Anti-Bg(a) 09/10 [place] RESULTS AB [facility] Center BLOOD BANK HISTORICAL Anti-Cw 09/10 [place] RESULTS AB [facility] Center BLOOD BANK C3 Int Negative 09/10 [place] RESULTS /2014 Medical (09/10/14 8:01 AM) Center BLOOD BANK [place] Int See Note 09/10 2Result Comment: 09/10/2014 12:56 TIMARTI2 [place] non reactive with all cells tested. [facility] BLOOD BANK MEGHAN Gel Int Positive 09/10 [place] RESULTS [facility] (09/10/14 8:01 AM) Center BLOOD [...] unit/L 98 - 192 09/10 [place] /2014 [facility] Center ELECTROLYTE AGAP 11.8 meq/L 10.0 - 09/10 [place] S 20.0 /2015 [facility] Center ELECTROLYTE eGFR 137 09/10 4Result Comment: The eGFR is calculated using the CKD-EPI formula. In most young, healthy individuals the eGFR will be > 90 mL/min/1.73m2. The eGFR declines with age. An eGFR of 60-89 may be normal in [facility] mL/min/1.73 some populations, particularly the elderly, [...] Lvl 8.3 mg/dL 8.5 - 10.5 09/10 [facility] ELECTROLYTE Chloride Lvl 113 meq/L 95 - 109 09/10 [facility] ELECTROLYTE Sodium Lvl 144 meq/L 135 - 145 09/10 [facility] ELECTROLYTE Glucose Lvl 81 mg/dL 70 - 99 09/10 7Interpretive Data: Adult reference range values reflect the clinical guidelines [facility] of [employer] [place] [employer]. [facility] ELECTROLYTE BUN 4 mg/dL 7 - 22 09/10 [facility] ELECTROLYTE Creatinine 0.6 mg/dL 0.5 - 1.4 09/10 [facility] ELECTROLYTE CO2 23 meq/L 24 - 32 09/10 [facility] ELECTROLYTE Potassium 3.8 meq/L 3.5 - 5.1 09/10 [facility] HEMATOLOGY Hgb 6.2 g/dL 12.0 - 09/10 11Result [facility] 16.0 Comment: Medical Critical Center Result(s) called to Amy Fraga at 09/10/2014 06:07 by negrita. Read back OK. HEMATOLOGY WBC 15.9 K/CMM 3.7 - 10.4 09/10 [facility] HEMATOLOGY RBC 1.85 M/CMM 4.20 - 09/10 [facility] 5.40 /2014 [facility] HEMATOLOGY Hct 18.2 % 36.0 - 09/10 [facility] 48.0 [facility] HEMATOLOGY MCV 98.3 fL 80.0 - 09/10 [facility] 98.0 [facility] HEMATOLOGY RDW 25.4 % 11.5 - 09/10 [facility] 14.5 [facility] HEMATOLOGY Platelet 190 K/CMM 133 - 450 09/10 [facility] HEMATOLOGY MCH 33.6 pg 27.0 - 09/10 [facility] 31.0 [facility] HEMATOLOGY MCHC 34.2 g/dL 32.0 - 09/10 36.0 [facility] HEMATOLOGY MPV 8.5 fL 7.4 - 10.4 09/10 [facility] HEMATOLOGY Retic Auto 15.8 % 0.5 - 1.5 09/10 [facility] ELECTROLYTE AGAP 13.7 meq/L 10.0 - 09/09 [facility] S 20.0 [facility] ELECTROLYTE eGFR 96 09/09 5Result Comment: The eGFR is calculated using the CKD-EPI formula. In most young, healthy individuals the eGFR will be > 90 mL/min/1.73m2. The eGFR declines with age. An eGFR of 60-89 may be normal in [facility] mL/min/1.73 some populations, particularly the elderly, for whom the CKD-EPI formula has not been extensively validated. Use of the eGFR is not recommended in the following populations: [place] [address] [place] Individuals with unstable creatinine concentrations, including [...] Lvl 9.1 mg/dL 8.5 - 10.5 09/09 [facility] ELECTROLYTE Potassium 3.7 meq/L 3.5 - 5.1 09/09 [facility] ELECTROLYTE Sodium Lvl 142 meq/L 135 - 145 09/09 [facility] ELECTROLYTE Glucose Lvl 106 mg/dL 70 - 99 09/09 8Interpretive Data: Adult reference range values reflect the clinical guidelines [facility] of [employer] [place] [employer]. [facility] ELECTROLYTE Creatinine 0.9 mg/dL 0.5 - 1.4 09/09 [facility] ELECTROLYTE BUN 6 mg/dL 7 - 22 09/09 [facility] [place]2015 [facility] ELECTROLYTE CO2 26 meq/L 24 - 32 09/09 [facility] S /2014 [facility] ELECTROLYTE Chloride Lvl 106 meq/L 95 - 109 09/09 [facility] [place]2014 [facility] HEMATOLOGY Sickle Cell Slight 09/09 [facility]2014 [facility] HEMATOLOGY Schistocyte 1-3 per HPF None Seen 09/09 [facility] (09/09/14 2:13 AM) [place] HEMATOLOGY Tear Cell Slight 09/09 [facility]2014 [facility] HEMATOLOGY Target Cell Moderate None Seen 09/09 [facility] [place] (09/09/14 2:13 AM) HEMATOLOGY Polychrom Slight 09/[address] HEMATOLOGY Plt Morph Normal 09/09 [facility] (09/09/14 2:13 AM) [place] HEMATOLOGY Tot Cell Ct 100 09/[address] HEMATOLOGY Bands 0.0 % 0.0 - 11.0 09/[address] HEMATOLOGY Segs 49.0 % 45.0 - 09/09 [facility] 75.0 [facility] HEMATOLOGY Macrocyte 1+ None Seen 09/09 [facility] [place] (09/09/14 2:13 AM) HEMATOLOGY Anisocyte 1+ None Seen 09/09 [facility] [place] (09/09/14 2:13 AM) HEMATOLOGY NRBC 2 /100WB 09/[address] HEMATOLOGY Atypical 0.0 % <=0.0 % 09/09 [facility] Lymph [facility] HEMATOLOGY Eosinophils 3.0 % 0.0 - 4.0 09/[address] HEMATOLOGY Monocytes 14.0 % 2.0 - 12.0 09/[address] HEMATOLOGY Lymphocytes 34.0 % 20.0 - 09/09 [facility] 40.0 [facility] HEMATOLOGY Eosinophils 0.6 K/CMM 0.0 - 0.5 09/09 [place] [facility]2014 [facility] HEMATOLOGY Monocytes # 2.7 K/CMM 0.0 - 0.8 09/[address] HEMATOLOGY Lymphocytes 6.5 K/CMM 1.0 - 5.5 09/09 [facility] /[address] [place] [address] HEMATOLOGY Segs-Bands # 9.3 K/CMM 1.5 - 8.1 09/[address] HEMATOLOGY Retic Auto 16.6 % 0.5 [...] HEMATOLOGY RBC 2.28 M/CMM 4.20 - 09/09 [facility] 5.40 /2014 [facility] Vital Signs Vital Sign Value Date Comments Source Respitory Rate 18 09/12/2014 [facility] Systolic (mm Hg) 120 09/12/2014 [facility] Heart Rate 80 09/12/2014 [facility] Diastolic (mm Hg) 80 09/12/2014 [facility] Temperature Oral (F) 98.0 F 09/12/2014 [facility] Diastolic (mm Hg) 82 09/11/2014 [facility] Respitory Rate 18 09/11/2014 [facility] Systolic (mm Hg) 132 09/11/2014 [facility] Heart Rate 82 09/11/2014 [facility] Temperature Oral (F) 98.4 F 09/11/2014 [facility] Respitory Rate 16 09/11/2014 [facility] Heart Rate 86 09/11/2014 [facility] Systolic (mm Hg) 120 09/11/2014 [facility] Diastolic (mm Hg) 86 09/11/2014 [facility] Temperature Oral (F) 98.1 F 09/11/2014 [facility] Weight 70.591 09/10/2014 [facility] Weight 68.182 09/09/2014 [facility] BMI Calculated 26.63 09/09/2014 [facility] Height 160.02 cm 09/09/2014 [facility] Weight 70 09/09/2014 [facility] Height 160.02 cm 09/09/2014 [facility] BMI Calculated 27.34 09/09/2014 [facility] Encounters Location Location Encounter Encounter Reason Attending ADM DC Status Source Details Type Number For Provider Date Date Visit [facility] [id number] Josiane 09/09 09/12 [facility] Roly Randhawaon /2014 [facility] Procedures Procedure Code Date Perfomer Comments Source
--- OUTSIDE RECORDS SUMMARY | 2018-09-25 13:21 | XMS REPORT ---
:1980 [facility] Address [address] [place] [address] Dr. Iraheta [address] [place] [id number] Care Team Providers Name Role Phone YANA [...] Comments WHITE BLOOD CELL COUNT (BEAKER) (test xdfx=998) 14.3 K/ L 3.5-10.5 RED BLOOD CELL COUNT (BEAKER) (test lnns=208) 2.54 M/ L 3.93-5.22 HEMOGLOBIN (BEAKER) (test mvyp=879) 7.3 GM/DL 11.2-15.7 HEMATOCRIT (BEAKER) (test jzhs=973) 23.4 % 34.1-44.9 MEAN CORPUSCULAR VOLUME (BEAKER) (test lunm=872) 92.1 fL 79.4-94.8 MEAN CORPUSCULAR HEMOGLOBIN (BEAKER) (test bjib=831) 28.7 pg 25.6-32.2 MEAN CORPUSCULAR HEMOGLOBIN CONC (BEAKER) (test ijls=100) 31.2 GM/DL 32.2- 35.5 RED CELL DISTRIBUTION WIDTH (BEAKER) (test xdwd=147) 21.4 % 11.7-14.4 PLATELET COUNT (BEAKER) (test gwff=358) 239 K/CU MM 150-450 MEAN PLATELET VOLUME (BEAKER) (test dkrk=081) 11.0 fL 9.4-12.3 NUCLEATED RED BLOOD CELLS (BEAKER) (test bgov=071) 4 /100 WBC 0-0 (CELLAVISION MANUAL DIFF)2018-02-08 12:02:00 Test Item Value Reference Range Comments NEUTROPHILS - REL (CELLAVISION)(BEAKER) (test 66 % pwih=0023) LYMPHOCYTES - REL (CELLAVISION)(BEAKER) (test 22 % juuu=1754) MONOCYTES - REL (CELLAVISION)(BEAKER) (test 8 % gpvk=4454) EOSINOPHILS - REL (CELLAVISION)(BEAKER) (test 3 % ccjg=7028) NEUTROPHILS - ABS (CELLAVISION)(BEAKER) (test 9.44 K/ul 1.56-6.13 llcf=9985) LYMPHOCYTES - ABS (CELLAVISION)(BEAKER) (test 3.15 K/ul 1.18-3.74 feul=0707) MONOCYTES - ABS (CELLAVISION)(BEAKER) (test 1.14 K/uL 0.24-0.36 fcws=2069) EOSINOPHILS - ABS (CELLAVISION)(BEAKER) (test 0.43 K/uL 0.04-0.36 kmck=6073) TOTAL COUNTED (BEAKER) (test hcdv=2613) 100 MANUAL NRBC PER 100 CELLS (BEAKER) (test 5 /100 WBC 0-0 vyzh=1637) WBC MORPHOLOGY (BEAKER) (test fpxh=962) Normal PLT MORPHOLOGY (BEAKER) (test mqzz=557) Normal ANISOCYTOSIS (BEAKER) (test rlyu=892) 2+ moderate MACROCYTES (BEAKER) (test nhxd=764) 1+ few TARGET CELLS (BEAKER) (test opqh=819) 1+ few SICKLE CELLS (BEAKER) (test mrnm=827) 1+ few MATTHEWS-JOLLY BODIES (BEAKER) (test wnwo=997) 1+ few ARTIFACT (CELLAVISION)(BEAKER) (test txfl=2846) Present PLATELET CONCENTRATION (CELLAVISION)(BEAKER) Adequate (test jwap=2671) Received comment: User comments: Slide comments:BASIC METABOLIC [id number] 06:09:00 Test Item Value Reference Range Comments SODIUM (BEAKER) (test 138 meq/L 136-145 ztce=247) POTASSIUM (BEAKER) (test 5.9 meq/L 3.5-5.1 decm=211) CHLORIDE (BEAKER) (test 102 meq/L 98-107 vpys=638) CO2 (BEAKER) (test 30 meq/L 22-29 baxn=671) BLOOD UREA NITROGEN 15 mg/dL 7-21 (BEAKER) (test itds=797) CREATININE (BEAKER) (test 0.68 mg/dL 0.57-1.25 pqsi=251) GLUCOSE RANDOM (BEAKER) 87 mg/dL 70-105 (test nmch=016) CALCIUM (BEAKER) (test 9.6 mg/dL 8.4-10.2 jrpa=423) EGFR (BEAKER) (test 117 mL/min/1.73 sq m ESTIMATED GFR IS NOT oann=5558) ACCURATE CREATININE CLEARANCE IN PREDICTING GLOMERULAR FILTRATION RATE. ESTIMATED GFR IS NOT APPLICABLE FOR DIALYSIS PATIENTS. (CELLAVISION MANUAL DIFF)2018-02-07 13:34:00 Test Item Value Reference Range Comments NEUTROPHILS - REL (CELLAVISION)(BEAKER) (test 68 % mnwd=6669) LYMPHOCYTES - REL (CELLAVISION)(BEAKER) (test 24 % uzmt=4664) MONOCYTES - REL (CELLAVISION)(BEAKER) (test 7 % xuuf=7961) EOSINOPHILS - REL (CELLAVISION)(BEAKER) (test 1 % crrb=7608) NEUTROPHILS - ABS (CELLAVISION)(BEAKER) (test 9.66 K/ul 1.56-6.13 yygk=6580) LYMPHOCYTES - ABS (CELLAVISION)(BEAKER) (test 3.41 K/ul 1.18-3.74 tdoz=8853) MONOCYTES - ABS (CELLAVISION)(BEAKER) (test 0.99 K/uL 0.24-0.36 hwea=1929) EOSINOPHILS - ABS (CELLAVISION)(BEAKER) (test 0.14 K/uL 0.04-0.36 uyzi=4192) TOTAL COUNTED (BEAKER) (test ikot=0471) 100 MANUAL NRBC PER 100 CELLS (BEAKER) (test 15 /100 WBC 0-0 hshy=5649) WBC MORPHOLOGY (BEAKER) (test rjbl=786) Normal LARGE PLT(BEAKER) (test sikc=0707) Present POLYCHROMATOPHILLIC RBCS(BEAKER) (test mhgx=876) 2+ moderate HYPOCHROMIA (BEAKER) (test gcqv=462) 1+ few TARGET CELLS (BEAKER) (test iriu=300) 2+ moderate SICKLE CELLS (BEAKER) (test fknl=003) 1+ few MATTHEWS-JOLLY BODIES (BEAKER) (test axib=418) 1+ few ARTIFACT (CELLAVISION)(BEAKER) (test incb=4818) Present PLATELET CONCENTRATION (CELLAVISION)(BEAKER) Adequate (test uvrb=4224) Received comment: User comments: Slide comments:CBC W/PLT COUNT & AUTO [id number] 13:33:00 Test Item Value Reference Range Comments WHITE BLOOD CELL COUNT (BEAKER) (test ggfo=849) 14.2 K/ L 3.5-10.5 RED BLOOD CELL COUNT (BEAKER) (test ylon=865) 2.68 M/ L 3.93-5.22 HEMOGLOBIN (BEAKER) (test dnwy=351) 7.7 GM/DL 11.2-15.7 HEMATOCRIT (BEAKER) (test adxi=764) 24.5 % 34.1-44.9 MEAN CORPUSCULAR VOLUME (BEAKER) (test fbmh=741) 91.4 fL 79.4-94.8 MEAN CORPUSCULAR HEMOGLOBIN (BEAKER) (test 28.7 pg 25.6-32.2 doiu=040) MEAN CORPUSCULAR HEMOGLOBIN CONC (BEAKER) (test 31.4 GM/DL 32.2-35.5 rudv=692) RED CELL DISTRIBUTION WIDTH (BEAKER) (test 21.2 % 11.7-14.4 lqfw=685) PLATELET COUNT (BEAKER) (test kpmx=596) 257 K/CU MM 150-450 MEAN PLATELET VOLUME (BEAKER) (test kjhg=024) 11.4 fL 9.4-12.3 NUCLEATED RED BLOOD CELLS (BEAKER) (test 6 /100 WBC 0-0 eenl=680) BASIC METABOLIC [id number] 07:19:00 Test Item Value Reference Range Comments SODIUM (BEAKER) (test 138 meq/L 136-145 cbxn=701) POTASSIUM (BEAKER) (test 5.3 meq/L 3.5-5.1 vkig=901) CHLORIDE (BEAKER) (test 98 meq/L 98-107 opzp=578) CO2 (BEAKER) (test 34 meq/L 22-29 jdvu=510) BLOOD UREA NITROGEN 16 mg/dL 7-21 (BEAKER) (test vlhx=380) CREATININE (BEAKER) (test 0.66 mg/dL 0.57-1.25 ipui=266) GLUCOSE RANDOM (BEAKER) 90 mg/dL 70-105 (test jkfq=418) CALCIUM (BEAKER) (test 9.8 mg/dL 8.4-10.2 xpfm=389) EGFR (BEAKER) (test 121 mL/min/1.73 sq m ESTIMATED GFR IS NOT flhu=9209) ACCURATE CREATININE CLEARANCE IN PREDICTING GLOMERULAR FILTRATION RATE. ESTIMATED GFR IS NOT APPLICABLE FOR DIALYSIS PATIENTS. CBC W/PLT COUNT & AUTO [id number] 14:36:00 Test Item Value Reference Range Comments WHITE BLOOD CELL COUNT (BEAKER) (test fjul=413) 12.9 K/ L 3.5-10.5 RED BLOOD CELL COUNT (BEAKER) (test mtww=553) 2.54 M/ L 3.93-5.22 HEMOGLOBIN (BEAKER) (test wqvg=310) 7.4 GM/DL 11.2-15.7 HEMATOCRIT (BEAKER) (test wbcn=723) 22.9 % 34.1-44.9 MEAN CORPUSCULAR VOLUME (BEAKER) (test jbyn=326) 90.2 fL 79.4-94.8 MEAN CORPUSCULAR HEMOGLOBIN (BEAKER) (test 29.1 pg 25.6-32.2 kxnl=074) MEAN CORPUSCULAR HEMOGLOBIN CONC (BEAKER) (test 32.3 GM/DL 32.2-35.5 dyko=839) RED CELL DISTRIBUTION WIDTH (BEAKER) (test 21.2 % 11.7-14.4 mrap=759) PLATELET COUNT (BEAKER) (test dzgv=852) 251 K/CU MM 150-450 MEAN PLATELET VOLUME (BEAKER) (test xhqf=042) 10.8 fL 9.4-12.3 NUCLEATED RED BLOOD CELLS (BEAKER) (test 7 /100 WBC 0-0 yofy=165) (MANUAL DIFFERENTIAL)2018-02-06 14:36:00 Test Item Value Reference Range Comments NEUTROPHILS - REL (DIFF) (BEAKER) (test 64 % bmzr=3089) LYMPHOCYTES - REL (DIFF) (BEAKER) (test 22 % hsff=2028) MONOCYTES - REL (DIFF) (BEAKER) (test juhj=6444) 8 % EOSINOPHILS - REL (DIFF) (BEAKER) (test 6 % kwwd=1737) BASOPHILS - REL (DIFF) (BEAKER) (test htoe=7339) 0 % NEUTROPHILS - ABS (DIFF) (BEAKER) (test 8.26 K/ L 1.80-8.00 nlsf=9815) LYMPHOCYTES - ABS (DIFF) (BEAKER) (test 2.84 K/ L 1.48-4.50 hlet=5350) MONOCYTES - ABS (DIFF) (BEAKER) (test nftp=0038) 1.03 K/ L 0.00-1.30 EOSINOPHILS - ABS (DIFF) (BEAKER) (test 0.77 K/ L 0.00-0.50 vyzy=7286) BASOPHILS - ABS (DIFF) (BEAKER) (test euwz=5711) 0.00 K/ L 0.00-0.20 TOTAL COUNTED (BEAKER) (test ybhx=3445) 100 MANUAL NRBC PER 100 CELLS (BEAKER) (test 8 /100 WBC 0-0 komo=8220) WBC MORPHOLOGY (BEAKER) (test xiiz=471) Normal PLT MORPHOLOGY (BEAKER) (test psrx=961) Normal ANISOCYTOSIS (BEAKER) (test tucm=334) 2+ moderate SICKLE CELLS (BEAKER) (test gnfy=865) 2+ moderate BASIC METABOLIC [id number] 06:59:00 Test Item Value Reference Range Comments SODIUM (BEAKER) (test 139 meq/L 136-145 hhpx=446) POTASSIUM (BEAKER) (test 4.9 meq/L 3.5-5.1 rcua=715) CHLORIDE (BEAKER) (test 100 meq/L 98-107 igzj=613) CO2 (BEAKER) (test 34 meq/L 22-29 otby=905) BLOOD UREA NITROGEN 18 mg/dL 7-21 (BEAKER) (test zqwh=220) CREATININE (BEAKER) (test 0.70 mg/dL 0.57-1.25 euqb=029) GLUCOSE RANDOM (BEAKER) 102 mg/dL 70-105 (test uyba=162) CALCIUM (BEAKER) (test 9.8 mg/dL 8.4-10.2 ldtt=437) EGFR (BEAKER) (test 114 mL/min/1.73 sq m ESTIMATED GFR IS NOT jomn=7736) ACCURATE CREATININE CLEARANCE IN PREDICTING GLOMERULAR FILTRATION RATE. ESTIMATED GFR IS NOT APPLICABLE FOR DIALYSIS PATIENTS. CBC W/PLT COUNT & AUTO [id number] 12:27:00 Test Item Value Reference Range Comments WHITE BLOOD CELL COUNT (BEAKER) (test ihyo=424) 14.2 K/ L 3.5-10.5 RED BLOOD CELL COUNT (BEAKER) (test cbcv=808) 2.55 M/ L 3.93-5.22 HEMOGLOBIN (BEAKER) (test gofi=747) 7.2 GM/DL 11.2-15.7 HEMATOCRIT (BEAKER) (test dckd=070) 22.9 % 34.1-44.9 MEAN CORPUSCULAR VOLUME (BEAKER) (test hshp=679) 89.8 fL 79.4-94.8 MEAN CORPUSCULAR HEMOGLOBIN (BEAKER) (test 28.2 pg 25.6-32.2 bmwk=041) MEAN CORPUSCULAR HEMOGLOBIN CONC (BEAKER) (test 31.4 GM/DL 32.2-35.5 drrr=226) RED CELL DISTRIBUTION WIDTH (BEAKER) (test 20.7 % 11.7-14.4 bzah=576) PLATELET COUNT (BEAKER) (test qxkq=527) 261 K/CU MM 150-450 MEAN PLATELET VOLUME (BEAKER) (test sdec=832) 10.7 fL 9.4-12.3 NUCLEATED RED BLOOD CELLS (BEAKER) (test 5 /100 WBC 0-0 ozhy=826) (CELLAVISION MANUAL DIFF)2018-02-05 12:27:00 Test Item Value Reference Range Comments NEUTROPHILS - REL (CELLAVISION)(BEAKER) (test 67 % brpx=6339) LYMPHOCYTES - REL (CELLAVISION)(BEAKER) (test 17 % qios=8320) MONOCYTES - REL (CELLAVISION)(BEAKER) (test 6 % psms=3374) EOSINOPHILS - REL (CELLAVISION)(BEAKER) (test 4 % wvwc=5719) PROMYELOCYTES - REL (CELLAVSION)(BEAKER) (test 5 % 0-0 aggs=5278) ATYPICAL LYMPHOCYTES - REL (CELLAVISION)(BEAKER) 1 % 0-0 (test niqe=9094) NEUTROPHILS - ABS (CELLAVISION)(BEAKER) (test 9.51 K/ul 1.56-6.13 smfo=3579) LYMPHOCYTES - ABS (CELLAVISION)(BEAKER) (test 2.41 K/ul 1.18-3.74 fkws=3521) MONOCYTES - ABS (CELLAVISION)(BEAKER) (test 0.85 K/uL 0.24-0.36 owos=6692) EOSINOPHILS - ABS (CELLAVISION)(BEAKER) (test 0.57 K/uL 0.04-0.36 fytk=7018) PROMYELOCYTES - ABS (CELLAVISION)(BEAKER) (test 0.71 K/uL 0.00-0.00 ppnb=0089) ATYPICAL LYMPHOCYTES - ABS (CELLAVISION)(BEAKER) 0.14 K/uL 0.00-0.00 (test xqdv=9701) TOTAL COUNTED (BEAKER) (test sxzr=4421) 100 MANUAL NRBC PER 100 CELLS (BEAKER) (test 9 /100 WBC 0-0 atjj=2371) WBC MORPHOLOGY (BEAKER) (test wvyf=294) Normal LARGE PLT(BEAKER) (test bsgh=5297) Present POLYCHROMATOPHILLIC RBCS(BEAKER) (test xwzs=905) 2+ moderate HYPOCHROMIA (BEAKER) (test fypn=384) 1+ few TARGET CELLS (BEAKER) (test cgdx=726) 2+ moderate SICKLE CELLS (BEAKER) (test dfgz=496) 2+ moderate ARTIFACT (CELLAVISION)(BEAKER) (test lwvl=2908) Present PLATELET CONCENTRATION (CELLAVISION)(BEAKER) Adequate (test ptyj=0696) Received comment: User comments: Slide comments:BASIC METABOLIC [id number] 07:44:00 Test Item Value Reference Range Comments SODIUM (BEAKER) (test 139 meq/L 136-145 jkbz=209) POTASSIUM (BEAKER) (test 4.7 meq/L 3.5-5.1 isln=254) CHLORIDE (BEAKER) (test 100 meq/L 98-107 hvry=239) CO2 (BEAKER) (test 31 meq/L 22-29 xwlr=280) BLOOD UREA NITROGEN 14 mg/dL 7-21 (BEAKER) (test lpjj=039) CREATININE (BEAKER) (test 0.69 mg/dL 0.57-1.25 fpko=623) GLUCOSE RANDOM (BEAKER) 92 mg/dL 70-105 (test zrdc=769) CALCIUM (BEAKER) (test 9.8 mg/dL 8.4-10.2 mfxi=380) EGFR (BEAKER) (test 115 mL/min/1.73 sq m ESTIMATED GFR IS NOT edcj=7350) ACCURATE CREATININE CLEARANCE IN PREDICTING GLOMERULAR FILTRATION RATE. ESTIMATED GFR IS NOT APPLICABLE FOR DIALYSIS PATIENTS. CBC W/PLT COUNT & AUTO [id number] 13:29:00 Test Item Value Reference Range Comments WHITE BLOOD CELL COUNT (BEAKER) (test eise=336) 17.1 K/ L 3.5-10.5 RED BLOOD CELL COUNT (BEAKER) (test asen=918) 2.68 M/ L 3.93-5.22 HEMOGLOBIN (BEAKER) (test nafp=939) 7.6 GM/DL 11.2-15.7 HEMATOCRIT (BEAKER) (test vvcy=851) 23.3 % 34.1-44.9 MEAN CORPUSCULAR VOLUME (BEAKER) (test kcoo=467) 86.9 fL 79.4-94.8 MEAN CORPUSCULAR HEMOGLOBIN (BEAKER) (test 28.4 pg 25.6-32.2 perw=102) MEAN CORPUSCULAR HEMOGLOBIN CONC (BEAKER) (test 32.6 GM/DL 32.2-35.5 lpjy=104) RED CELL DISTRIBUTION WIDTH (BEAKER) (test 20.0 % 11.7-14.4 isdr=160) PLATELET COUNT (BEAKER) (test dfue=099) 252 K/CU MM 150-450 MEAN PLATELET VOLUME (BEAKER) (test igbk=199) 10.9 fL 9.4-12.3 NUCLEATED RED BLOOD CELLS (BEAKER) (test 4 /100 WBC 0-0 ygum=645) (CELLAVISION MANUAL DIFF)2018-02-04 13:29:00 Test Item Value Reference Range Comments NEUTROPHILS - REL (CELLAVISION)(BEAKER) (test 61 % wvjt=1188) LYMPHOCYTES - REL (CELLAVISION)(BEAKER) (test 29 % swdn=1760) MONOCYTES - REL (CELLAVISION)(BEAKER) (test 7 % whft=1025) EOSINOPHILS - REL (CELLAVISION)(BEAKER) (test 1 % rxcg=4534) BANDS - REL (CELLAVISION)(BEAKER) (test 2 % 0-10 pdsj=6276) NEUTROPHILS - ABS (CELLAVISION)(BEAKER) (test 10.43 K/ul 1.56-6.13 yfws=6743) LYMPHOCYTES - ABS (CELLAVISION)(BEAKER) (test 4.96 K/ul 1.18-3.74 pgdl=1357) MONOCYTES - ABS (CELLAVISION)(BEAKER) (test 1.20 K/uL 0.24-0.36 piuf=7066) EOSINOPHILS - ABS (CELLAVISION)(BEAKER) (test 0.17 K/uL 0.04-0.36 zwzs=6668) BANDS - ABS (CELLAVISION)(BEAKER) (test 0.34 K/uL 0.00-0.80 qwhh=6849) TOTAL COUNTED (BEAKER) (test oyqb=8068) 100 MANUAL NRBC PER 100 CELLS (BEAKER) (test 3 /100 WBC 0-0 ykgk=8582) SMUDGE CELLS (BEAKER) (test orth=5296) Present GIANT PLATELETS (BEAKER) (test uohs=578) Present POLYCHROMATOPHILLIC RBCS(BEAKER) (test zqcl=728) 3+ many ANISOCYTOSIS (BEAKER) (test bdbl=248) 2+ moderate MICROCYTES (BEAKER) (test lqjs=441) 1+ few POIKILOCYTES (BEAKER) (test syoq=686) 2+ moderate TARGET CELLS (BEAKER) (test egma=644) 2+ moderate SICKLE CELLS (BEAKER) (test cggh=276) 2+ moderate ARTIFACT (CELLAVISION)(BEAKER) (test kyic=9561) Present HELMET CELLS (CELLAVISION)(BEAKER) (test 1+ few obpk=7965) PLATELET CONCENTRATION (CELLAVISION)(BEAKER) Adequate (test avxj=7844) Received comment: User comments: Slide comments:BASIC METABOLIC [id number] 05:38:00 Test Item Value Reference Range Comments SODIUM (BEAKER) (test 140 meq/L 136-145 wcda=337) POTASSIUM (BEAKER) (test 4.6 meq/L 3.5-5.1 eior=963) CHLORIDE (BEAKER) (test 104 meq/L 98-107 prxc=106) CO2 (BEAKER) (test 28 meq/L 22-29 fpcw=710) BLOOD UREA NITROGEN 18 mg/dL 7-21 (BEAKER) (test ygke=801) CREATININE (BEAKER) (test 0.66 mg/dL 0.57-1.25 vuru=550) GLUCOSE RANDOM (BEAKER) 100 mg/dL 70-105 (test xrff=452) CALCIUM (BEAKER) (test 9.5 mg/dL 8.4-10.2 tadv=811) EGFR (BEAKER) (test 121 mL/min/1.73 sq m ESTIMATED GFR IS NOT uttz=2923) ACCURATE CREATININE CLEARANCE IN PREDICTING GLOMERULAR FILTRATION RATE. ESTIMATED GFR IS NOT APPLICABLE FOR DIALYSIS PATIENTS. CBC W/PLT COUNT & AUTO [id number] 14:02:00 Test Item Value Reference Range Comments WHITE BLOOD CELL COUNT (BEAKER) (test zgki=852) 20.8 K/ L 3.5-10.5 RED BLOOD CELL COUNT (BEAKER) (test vfqj=164) 1.97 M/ L 3.93-5.22 HEMOGLOBIN (BEAKER) (test mtrj=159) 5.9 GM/DL 11.2-15.7 HEMATOCRIT (BEAKER) (test ykkc=546) 17.6 % 34.1-44.9 MEAN CORPUSCULAR VOLUME (BEAKER) (test uylz=832) 89.3 fL 79.4-94.8 MEAN CORPUSCULAR HEMOGLOBIN (BEAKER) (test 29.9 pg 25.6-32.2 npvk=708) MEAN CORPUSCULAR HEMOGLOBIN CONC (BEAKER) (test 33.5 GM/DL 32.2-35.5 ralw=911) RED CELL DISTRIBUTION WIDTH (BEAKER) (test 21.8 % 11.7-14.4 navo=522) PLATELET COUNT (BEAKER) (test yuxx=815) 290 K/CU MM 150-450 MEAN PLATELET VOLUME (BEAKER) (test snnw=689) 10.7 fL 9.4-12.3 NUCLEATED RED BLOOD CELLS (BEAKER) (test 5 /100 WBC 0-0 cszf=474) NEUTROPHILS RELATIVE PERCENT (BEAKER) (test 66 % krob=751) LYMPHOCYTES RELATIVE PERCENT (BEAKER) (test 23 % mryd=250) MONOCYTES RELATIVE PERCENT (BEAKER) (test 10 % qdbx=051) EOSINOPHILS RELATIVE PERCENT (BEAKER) (test 1 % drco=985) BASOPHILS RELATIVE PERCENT (BEAKER) (test 0 % mhhr=759) NEUTROPHILS ABSOLUTE COUNT (BEAKER) (test 13.73 K/ L 1.56-6.13 ghhy=660) LYMPHOCYTES ABSOLUTE COUNT (BEAKER) (test 4.72 K/ L 1.18-3.74 mikt=974) MONOCYTES ABSOLUTE COUNT (BEAKER) (test 2.06 K/ L 0.24-0.36 iuvi=613) EOSINOPHILS ABSOLUTE COUNT (BEAKER) (test 0.20 K/ L 0.04-0.36 dpxn=400) BASOPHILS ABSOLUTE COUNT (BEAKER) (test 0.03 K/ L 0.01-0.08 krad=401) IMMATURE GRANULOCYTES-RELATIVE PERCENT (BEAKER) 1 % 0-1 (test imsr=9162) (CELLAVISION MANUAL DIFF)2018-02-03 14:02:00 Test Item Value Reference Range Comments TOTAL COUNTED (BEAKER) (test ourc=3245) WBC MORPHOLOGY (BEAKER) (test bohm=194) Normal PLT MORPHOLOGY (BEAKER) (test jwru=446) Normal POLYCHROMATOPHILLIC RBCS(BEAKER) (test jqgf=656) 2+ moderate ANISOCYTOSIS (BEAKER) (test ppux=444) 2+ moderate TARGET CELLS (BEAKER) (test bcwb=423) 2+ moderate SICKLE CELLS (BEAKER) (test vfkw=299) 2+ moderate BASIC METABOLIC [id number] 07:22:00 Test Item Value Reference Range Comments SODIUM (BEAKER) (test 140 meq/L 136-145 hsud=085) POTASSIUM (BEAKER) (test 4.9 meq/L 3.5-5.1 iiyj=006) CHLORIDE (BEAKER) (test 105 meq/L 98-107 ccox=157) CO2 (BEAKER) (test 29 meq/L 22-29 qdiq=368) BLOOD UREA NITROGEN 20 mg/dL 7-21 (BEAKER) (test vpny=204) CREATININE (BEAKER) (test 0.72 mg/dL 0.57-1.25 ydgy=799) GLUCOSE RANDOM (BEAKER) 100 mg/dL 70-105 (test seii=892) CALCIUM (BEAKER) (test 9.4 mg/dL 8.4-10.2 zizg=871) EGFR (BEAKER) (test 110 mL/min/1.73 sq m ESTIMATED GFR IS NOT jblo=2306) ACCURATE CREATININE CLEARANCE IN PREDICTING GLOMERULAR FILTRATION RATE. ESTIMATED GFR IS NOT APPLICABLE FOR DIALYSIS PATIENTS. Specimen slightly ictericCBC W/PLT COUNT & AUTO [id number] 06:46 :00 Test Item Value Reference Range Comments WHITE BLOOD CELL COUNT (BEAKER) (test cnck=531) 17.0 K/ L 3.5-10.5 RED BLOOD CELL COUNT (BEAKER) (test doax=114) 2.18 M/ L 3.93-5.22 HEMOGLOBIN (BEAKER) (test oqar=267) 6.4 GM/DL 11.2-15.7 HEMATOCRIT (BEAKER) (test pdfd=619) 20.3 % 34.1-44.9 MEAN CORPUSCULAR VOLUME (BEAKER) (test seds=686) 93.1 fL 79.4-94.8 MEAN CORPUSCULAR HEMOGLOBIN (BEAKER) (test 29.4 pg 25.6-32.2 duxw=835) MEAN CORPUSCULAR HEMOGLOBIN CONC (BEAKER) (test 31.5 GM/DL 32.2-35.5 qwzk=456) RED CELL DISTRIBUTION WIDTH (BEAKER) (test 24.0 % 11.7-14.4 ggxe=316) PLATELET COUNT (BEAKER) (test yeoy=129) 274 K/CU MM 150-450 MEAN PLATELET VOLUME (BEAKER) (test srgv=229) 10.9 fL 9.4-12.3 NUCLEATED RED BLOOD CELLS (BEAKER) (test 13 /100 WBC 0-0 mbwi=216) (CELLAVISION MANUAL DIFF)2018-02-02 06:46:00 Test Item Value Reference Range Comments NEUTROPHILS - REL (CELLAVISION)(BEAKER) (test 72 % gaoe=8402) LYMPHOCYTES - REL (CELLAVISION)(BEAKER) (test 20 % uomz=4236) MONOCYTES - REL (CELLAVISION)(BEAKER) (test 6 % ljrv=5308) EOSINOPHILS - REL (CELLAVISION)(BEAKER) (test 1 % jhxe=0785) BANDS - REL (CELLAVISION)(BEAKER) (test 1 % 0-10 qxzw=6684) NEUTROPHILS - ABS (CELLAVISION)(BEAKER) (test 12.24 K/ul 1.56-6.13 vxiq=8489) LYMPHOCYTES - ABS (CELLAVISION)(BEAKER) (test 3.40 K/ul 1.18-3.74 anya=4511) MONOCYTES - ABS (CELLAVISION)(BEAKER) (test 1.02 K/uL 0.24-0.36 fpjp=2968) EOSINOPHILS - ABS (CELLAVISION)(BEAKER) (test 0.17 K/uL 0.04-0.36 wizm=5279) BANDS - ABS (CELLAVISION)(BEAKER) (test 0.17 K/uL 0.00-0.80 hthb=3393) TOTAL COUNTED (BEAKER) (test khgu=4063) 100 MANUAL NRBC PER 100 CELLS (BEAKER) (test 30 /100 WBC 0-0 fpbz=1568) WBC MORPHOLOGY (BEAKER) (test lfhf=305) Normal PLT MORPHOLOGY (BEAKER) (test lqie=941) Normal POLYCHROMATOPHILLIC RBCS(BEAKER) (test lhyz=938) 3+ many ANISOCYTOSIS (BEAKER) (test rpns=618) 2+ moderate MACROCYTES (BEAKER) (test gkzf=568) 2+ moderate TARGET CELLS (BEAKER) (test inea=084) 1+ few SICKLE CELLS (BEAKER) (test znuh=008) 1+ few ARTIFACT (CELLAVISION)(BEAKER) (test rdsr=7401) Present PLATELET CONCENTRATION (CELLAVISION)(BEAKER) Adequate (test eczx=0776) Received comment: User comments: Slide comments:BASIC METABOLIC [id number] 06:15:00 Test Item Value Reference Range Comments SODIUM (BEAKER) (test 139 meq/L 136-145 fgpn=120) POTASSIUM (BEAKER) (test 4.7 meq/L 3.5-5.1 domn=391) CHLORIDE (BEAKER) (test 105 meq/L 98-107 uegm=420) CO2 (BEAKER) (test 26 meq/L 22-29 crvy=129) BLOOD UREA NITROGEN 10 mg/dL 7-21 (BEAKER) (test pzfk=923) CREATININE (BEAKER) (test 0.67 mg/dL 0.57-1.25 rwnb=576) GLUCOSE RANDOM (BEAKER) 91 mg/dL 70-105 (test otsr=191) CALCIUM (BEAKER) (test 9.3 mg/dL 8.4-10.2 ffft=850) EGFR (BEAKER) (test 119 mL/min/1.73 sq m ESTIMATED GFR IS NOT zjdm=2238) ACCURATE CREATININE CLEARANCE IN PREDICTING GLOMERULAR FILTRATION RATE. ESTIMATED GFR IS NOT APPLICABLE FOR DIALYSIS PATIENTS. URINALYSIS W/ [id number] 20:17:00 Test Item Value Reference Range Comments COLOR (BEAKER) (test buso=969) Yellow CLARITY (BEAKER) (test dbab=574) Hazy SPECIFIC GRAVITY UA (BEAKER) (test ckah=716) 1.009 1.001-1.035 PH UA (BEAKER) (test hsjl=898) 5.5 5.0-8.0 PROTEIN UA (BEAKER) (test ghky=197) 20 mg/dL Negative GLUCOSE UA (BEAKER) (test nxxn=058) Negative Negative KETONES UA (BEAKER) (test vncl=007) Negative Negative BILIRUBIN UA (BEAKER) (test nryz=673) Negative Negative BLOOD UA (BEAKER) (test krao=840) Small Negative NITRITE UA (BEAKER) (test jebs=110) Negative Negative LEUKOCYTE ESTERASE UA (BEAKER) (test tlwm=496) Small Negative UROBILINOGEN UA (BEAKER) (test kzsb=974) 0.2 mg/dL 0.2-1.0 RBC UA (BEAKER) (test pdxs=686) 1 /HPF WBC UA (BEAKER) (test mrpf=525) 4 /HPF BACTERIA (BEAKER) (test lhfk=420) Few MUCUS (BEAKER) (test aznv=8956) Occasional SQUAMOUS EPITHELIAL (BEAKER) (test pgui=928) 8 /HPF SOURCE(BEAKER) (test deuh=8836) Urine, Voided CBC W/PLT COUNT & AUTO [id number] 11:18:00 Test Item Value Reference Range Comments WHITE BLOOD CELL COUNT (BEAKER) (test asqf=606) 16.9 K/ L 3.5-10.5 RED BLOOD CELL COUNT (BEAKER) (test egkf=255) 2.15 M/ L 3.93-5.22 HEMOGLOBIN (BEAKER) (test ozkp=070) 6.5 GM/DL 11.2-15.7 HEMATOCRIT (BEAKER) (test flbw=165) 20.6 % 34.1-44.9 MEAN CORPUSCULAR VOLUME (BEAKER) (test kuza=681) 95.8 fL 79.4-94.8 MEAN CORPUSCULAR HEMOGLOBIN (BEAKER) (test 30.2 pg 25.6-32.2 gsxu=244) MEAN CORPUSCULAR HEMOGLOBIN CONC (BEAKER) (test 31.6 GM/DL 32.2-35.5 qtns=572) RED CELL DISTRIBUTION WIDTH (BEAKER) (test 25.6 % 11.7-14.4 oihe=200) PLATELET COUNT (BEAKER) (test mlfb=359) 280 K/CU MM 150-450 MEAN PLATELET VOLUME (BEAKER) (test bdjm=528) 10.7 fL 9.4-12.3 NUCLEATED RED BLOOD CELLS (BEAKER) (test 27 /100 WBC 0-0 nxif=963) (CELLAVISION MANUAL DIFF)2018-02-01 11:18:00 Test Item Value Reference Range Comments NEUTROPHILS - REL (CELLAVISION)(BEAKER) (test 61 % hiyw=5844) LYMPHOCYTES - REL (CELLAVISION)(BEAKER) (test 27 % ytyd=8956) MONOCYTES - REL (CELLAVISION)(BEAKER) (test 8 % msct=5280) EOSINOPHILS - REL (CELLAVISION)(BEAKER) (test 4 % jimn=1988) NEUTROPHILS - ABS (CELLAVISION)(BEAKER) (test 10.31 K/ul 1.56-6.13 pvuj=3994) LYMPHOCYTES - ABS (CELLAVISION)(BEAKER) (test 4.56 K/ul 1.18-3.74 wkcc=9916) MONOCYTES - ABS (CELLAVISION)(BEAKER) (test 1.35 K/uL 0.24-0.36 ulkj=2544) EOSINOPHILS - ABS (CELLAVISION)(BEAKER) (test 0.68 K/uL 0.04-0.36 izfm=6789) TOTAL COUNTED (BEAKER) (test vslo=8396) 100 MANUAL NRBC PER 100 CELLS (BEAKER) (test 28 /100 WBC 0-0 mama=3140) WBC MORPHOLOGY (BEAKER) (test ekyb=685) Normal PLT MORPHOLOGY (BEAKER) (test jwfu=620) Normal POLYCHROMATOPHILLIC RBCS(BEAKER) (test nhyn=637) 2+ moderate ANISOCYTOSIS (BEAKER) (test rsik=565) 2+ moderate TARGET CELLS (BEAKER) (test mtkh=648) 2+ moderate SICKLE CELLS (BEAKER) (test rcpy=772) 1+ few ARTIFACT (CELLAVISION)(BEAKER) (test ohfd=7411) Present PLATELET CONCENTRATION (CELLAVISION)(BEAKER) Adequate (test iqlc=4337) Received comment: User comments: Slide comments:BASIC METABOLIC [id number] 06:15:00 Test Item Value Reference Range Comments SODIUM (BEAKER) (test 141 meq/L 136-145 qmzy=291) POTASSIUM (BEAKER) (test 4.2 meq/L 3.5-5.1 rwzb=052) CHLORIDE (BEAKER) (test 108 meq/L 98-107 rgtt=345) CO2 (BEAKER) (test 25 meq/L 22-29 mihp=216) BLOOD UREA NITROGEN 11 mg/dL 7-21 (BEAKER) (test spfu=603) CREATININE (BEAKER) (test 0.73 mg/dL 0.57-1.25 ffne=493) GLUCOSE RANDOM (BEAKER) 93 mg/dL 70-105 (test qhgd=734) CALCIUM (BEAKER) (test 9.2 mg/dL 8.4-10.2 jzpg=483) EGFR (BEAKER) (test 108 mL/min/1.73 sq m ESTIMATED GFR IS NOT ootj=6650) ACCURATE CREATININE CLEARANCE IN PREDICTING GLOMERULAR FILTRATION RATE. ESTIMATED GFR IS NOT APPLICABLE FOR DIALYSIS PATIENTS. CBC W/PLT COUNT & AUTO [id number] 15:02:00 Test Item Value Reference Range Comments WHITE BLOOD CELL COUNT (BEAKER) (test nymq=796) 18.0 K/ L 3.5-10.5 RED BLOOD CELL COUNT (BEAKER) (test haav=647) 2.31 M/ L 3.93-5.22 HEMOGLOBIN (BEAKER) (test plax=981) 7.0 GM/DL 11.2-15.7 HEMATOCRIT (BEAKER) (test hgnu=734) 22.4 % 34.1-44.9 MEAN CORPUSCULAR VOLUME (BEAKER) (test rabr=766) 97.0 fL 79.4-94.8 MEAN CORPUSCULAR HEMOGLOBIN (BEAKER) (test 30.3 pg 25.6-32.2 sgfa=995) MEAN CORPUSCULAR HEMOGLOBIN CONC (BEAKER) (test 31.3 GM/DL 32.2-35.5 susz=968) RED CELL DISTRIBUTION WIDTH (BEAKER) (test 27.9 % 11.7-14.4 garx=179) PLATELET COUNT (BEAKER) (test jmjy=034) 337 K/CU MM 150-450 MEAN PLATELET VOLUME (BEAKER) (test vgan=984) 10.2 fL 9.4-12.3 NUCLEATED RED BLOOD CELLS (BEAKER) (test 63 /100 WBC 0-0 tzkq=836) NEUTROPHILS RELATIVE PERCENT (BEAKER) (test 45 % umep=972) LYMPHOCYTES RELATIVE PERCENT (BEAKER) (test 35 % jhee=702) MONOCYTES RELATIVE PERCENT (BEAKER) (test 16 % yjzn=911) EOSINOPHILS RELATIVE PERCENT (BEAKER) (test 2 % lkzs=118) BASOPHILS RELATIVE PERCENT (BEAKER) (test 0 % fdaw=363) NEUTROPHILS ABSOLUTE COUNT (BEAKER) (test 8.10 K/ L 1.56-6.13 kjrn=235) LYMPHOCYTES ABSOLUTE COUNT (BEAKER) (test 6.24 K/ L 1.18-3.74 fhhn=461) MONOCYTES ABSOLUTE COUNT (BEAKER) (test 2.96 K/ L 0.24-0.36 rzbk=354) EOSINOPHILS ABSOLUTE COUNT (BEAKER) (test 0.38 K/ L 0.04-0.36 xnds=125) BASOPHILS ABSOLUTE COUNT (BEAKER) (test 0.06 K/ L 0.01-0.08 bspc=885) IMMATURE GRANULOCYTES-RELATIVE PERCENT (BEAKER) 2 % 0-1 (test wvtp=2855) (CELLAVISION MANUAL DIFF)2018-01-30 15:02:00 Test Item Value Reference Range Comments TOTAL COUNTED (BEAKER) (test rhrm=7440) WBC MORPHOLOGY (BEAKER) (test mevp=256) Normal PLT MORPHOLOGY (BEAKER) (test hads=453) Normal POLYCHROMATOPHILLIC RBCS(BEAKER) (test yfij=830) 2+ moderate ANISOCYTOSIS (BEAKER) (test tluz=607) 2+ moderate TARGET CELLS (BEAKER) (test rvuj=505) 2+ moderate SICKLE CELLS (BEAKER) (test adhz=624) 1+ few BASIC METABOLIC [id number] 09:27:00 Test Item Value Reference Range Comments SODIUM (BEAKER) (test 141 meq/L 136-145 vrdv=739) POTASSIUM (BEAKER) (test 4.0 meq/L 3.5-5.1 qara=694) CHLORIDE (BEAKER) (test 108 meq/L 98-107 wmxo=886) CO2 (BEAKER) (test 24 meq/L 22-29 swfq=738) BLOOD UREA NITROGEN 12 mg/dL 7-21 (BEAKER) (test srej=048) CREATININE (BEAKER) (test 0.80 mg/dL 0.57-1.25 yquv=276) GLUCOSE RANDOM (BEAKER) 95 mg/dL 70-105 (test bmwf=477) CALCIUM (BEAKER) (test 9.5 mg/dL 8.4-10.2 fmex=085) EGFR (BEAKER) (test 97 mL/min/1.73 sq m ESTIMATED GFR IS NOT uzee=3095) ACCURATE CREATININE CLEARANCE IN PREDICTING GLOMERULAR FILTRATION RATE. ESTIMATED GFR IS NOT APPLICABLE FOR DIALYSIS PATIENTS. [id number] 17:59:00 Test Item Value Reference Range Comments FERRITIN (BEAKER) (test bvxb=694) 50820 ng/mL 5-275 CBC W/PLT COUNT & AUTO [id number] 17:20:00 Test Item Value Reference Range Comments WHITE BLOOD CELL COUNT (BEAKER) (test ycbc=569) 19.9 K/ L 3.5-10.5 RED BLOOD CELL COUNT (BEAKER) (test bhyq=890) 1.53 M/ L 3.93-5.22 HEMOGLOBIN (BEAKER) (test bxin=488) 5.0 GM/DL 11.2-15.7 HEMATOCRIT (BEAKER) (test tgvt=385) 16.0 % 34.1-44.9 MEAN CORPUSCULAR VOLUME (BEAKER) (test tsft=967) 104.6 fL 79.4-94.8 MEAN CORPUSCULAR HEMOGLOBIN (BEAKER) (test 32.7 pg 25.6-32.2 bnlf=771) MEAN CORPUSCULAR HEMOGLOBIN CONC (BEAKER) (test 31.3 GM/DL 32.2-35.5 acsv=773) RED CELL DISTRIBUTION WIDTH (BEAKER) (test 33.7 % 11.7-14.4 evwf=632) PLATELET COUNT (BEAKER) (test zfje=056) 364 K/CU MM 150-450 MEAN PLATELET VOLUME (BEAKER) (test swps=310) 10.4 fL 9.4-12.3 NUCLEATED RED BLOOD CELLS (BEAKER) (test 62 /100 WBC 0-0 zddn=098) RETICULOCYTE [id number] 17:20:00 Test Item Value Reference Range Comments RETICULOCYTE COUNT PCT (BEAKER) (test ocki=502) > % 0.5-1.7 (CELLAVISION MANUAL DIFF)2018-01-29 17:20:00 Test Item Value Reference Range Comments TOTAL COUNTED (BEAKER) (test tuod=0809) RBC MORPHOLOGY (BEAKER) (test tkrw=418) Normal WBC MORPHOLOGY (BEAKER) (test avvu=243) Normal PLT MORPHOLOGY (BEAKER) (test irym=560) Normal LACTATE DEHYDROGENASE (LDH)2018-01-29 17:04:00 Test Item Value Reference Range Comments LACTATE DEHYDROGENASE (BEAKER) (test ktjd=945) 989 U/L 125-220 BASIC METABOLIC [id number] 17:04:00 Test Item Value Reference Range Comments SODIUM (BEAKER) (test 138 meq/L 136-145 mydt=540) POTASSIUM (BEAKER) (test 4.2 meq/L 3.5-5.1 wvog=769) CHLORIDE (BEAKER) (test 109 meq/L 98-107 hwlb=863) CO2 (BEAKER) (test 22 meq/L 22-29 anly=666) BLOOD UREA NITROGEN 11 mg/dL 7-21 (BEAKER) (test saph=293) CREATININE (BEAKER) (test 0.76 mg/dL 0.57-1.25 dapj=112) GLUCOSE RANDOM (BEAKER) 104 mg/dL 70-105 (test hqhv=834) CALCIUM (BEAKER) (test 9.5 mg/dL 8.4-10.2 bqgg=094) EGFR (BEAKER) (test 103 mL/min/1.73 sq m ESTIMATED GFR IS NOT olkh=5633) ACCURATE CREATININE CLEARANCE IN PREDICTING GLOMERULAR FILTRATION RATE. ESTIMATED GFR IS NOT APPLICABLE FOR DIALYSIS PATIENTS. ANTI-MITOCHONDRIAL AB, REFLEX TO [id number] 11:03:00 Test Item Value Reference Range Comments SCAN RESULT (test cyqv=[id number]) CALCIUM, [id number] 07:05:00 Test Item Value Reference Range Comments CALCIUM IONIZED (BEAKER) (test yjwl=184) 1.10 mmol/L 1.12-1.27 PH, BLOOD (BEAKER) (test pvnd=8491) 7.30 [id number] 06:22:00 Test Item Value Reference Range Comments PHOSPHORUS (BEAKER) (test gzcl=239) 4.7 mg/dL 2.3-4.7 [id number] 06:22:00 Test Item Value Reference Range Comments MAGNESIUM (BEAKER) (test efir=733) 1.4 mg/dL 1.6-2.6 BASIC METABOLIC [id number] 06:22:00 Test Item Value Reference Range Comments SODIUM (BEAKER) (test 135 meq/L 136-145 xexf=149) POTASSIUM (BEAKER) (test 4.5 meq/L 3.5-5.1 gutc=670) CHLORIDE (BEAKER) (test 100 meq/L 98-107 uwjs=628) CO2 (BEAKER) (test 29 meq/L 22-29 hatr=446) BLOOD UREA NITROGEN 19 mg/dL 7-21 (BEAKER) (test wvqb=028) CREATININE (BEAKER) (test 0.76 mg/dL 0.57-1.25 kexw=598) GLUCOSE RANDOM (BEAKER) 104 mg/dL 70-105 (test eupn=529) CALCIUM (BEAKER) (test 9.3 mg/dL 8.4-10.2 xrhb=558) EGFR (BEAKER) (test 103 mL/min/1.73 sq m ESTIMATED GFR IS NOT unsf=0359) ACCURATE CREATININE CLEARANCE IN PREDICTING GLOMERULAR FILTRATION RATE. ESTIMATED GFR IS NOT APPLICABLE FOR DIALYSIS PATIENTS. CREATINE KINASE (CK)2017-11-24 08:12:00 Test Item Value Reference Range Comments CREATINE KINASE TOTAL (BEAKER) (test egrn=827) 8 U/L 29-200 URIC [id number] 08:01:00 Test Item Value Reference Range Comments URIC ACID (BEAKER) (test rola=037) 4.8 mg/dL 2.6-7.2 [id number] 08:01:00 Test Item Value Reference Range Comments MAGNESIUM (BEAKER) (test aoth=282) 1.5 mg/dL 1.6-2.6 [id number] 08:01:00 Test Item Value Reference Range Comments PHOSPHORUS (BEAKER) (test xnfx=216) 5.3 mg/dL 2.3-4.7 BASIC METABOLIC [id number] 08:01:00 Test Item Value Reference Range Comments SODIUM (BEAKER) (test 138 meq/L 136-145 ybyy=242) POTASSIUM (BEAKER) (test 4.9 meq/L 3.5-5.1 zpln=264) CHLORIDE (BEAKER) (test 100 meq/L 98-107 qfkw=240) CO2 (BEAKER) (test 28 meq/L 22-29 fsfw=134) BLOOD UREA NITROGEN 22 mg/dL 7-21 (BEAKER) (test sqeo=188) CREATININE (BEAKER) (test 0.80 mg/dL 0.57-1.25 pxiu=923) GLUCOSE RANDOM (BEAKER) 102 mg/dL 70-105 (test rxsm=069) CALCIUM (BEAKER) (test 9.3 mg/dL 8.4-10.2 yzdu=338) EGFR (BEAKER) (test 97 mL/min/1.73 sq m ESTIMATED GFR IS NOT xsbm=3874) ACCURATE CREATININE CLEARANCE IN PREDICTING GLOMERULAR FILTRATION RATE. ESTIMATED GFR IS NOT APPLICABLE FOR DIALYSIS PATIENTS. LACTATE DEHYDROGENASE (LDH)2017-11-24 08:01:00 Test Item Value Reference Range Comments LACTATE DEHYDROGENASE (BEAKER) (test tdxc=497) 489 U/L 125-220 [id number] 18:07:00 Test Item Value Reference Range Comments POTASSIUM (BEAKER) (test fmtc=463) 5.5 meq/L 3.5-5.1 Call if K > 5.4 to renal [id number] [id number] 1032CALCIUM, [id number] 06:51:00 Test Item Value Reference Range Comments CALCIUM IONIZED (BEAKER) (test evxk=720) 1.08 mmol/L 1.12-1.27 PH, BLOOD (BEAKER) (test wpfn=5453) 7.35 CBC W/PLT COUNT & AUTO [id number] 06:25:00 Test Item Value Reference Range Comments WHITE BLOOD CELL COUNT (BEAKER) (test lekq=149) 18.3 K/ L 3.5-10.5 RED BLOOD CELL COUNT (BEAKER) (test yhpr=666) 2.30 M/ L 3.93-5.22 HEMOGLOBIN (BEAKER) (test lkge=418) 6.5 GM/DL 11.2-15.7 HEMATOCRIT (BEAKER) (test zsju=875) 21.1 % 34.1-44.9 MEAN CORPUSCULAR VOLUME (BEAKER) (test zdmx=297) 91.7 fL 79.4-94.8 MEAN CORPUSCULAR HEMOGLOBIN (BEAKER) (test 28.3 pg 25.6-32.2 xoqc=530) MEAN CORPUSCULAR HEMOGLOBIN CONC (BEAKER) (test 30.8 GM/DL 32.2-35.5 czij=245) RED CELL DISTRIBUTION WIDTH (BEAKER) (test 21.2 % 11.7-14.4 iaxo=994) PLATELET COUNT (BEAKER) (test zgoo=323) 414 K/CU MM 150-450 MEAN PLATELET VOLUME (BEAKER) (test orub=040) 11.5 fL 9.4-12.3 NUCLEATED RED BLOOD CELLS (BEAKER) (test 0 /100 WBC 0-0 nzvb=912) NEUTROPHILS RELATIVE PERCENT (BEAKER) (test 53 % gccq=167) LYMPHOCYTES RELATIVE PERCENT (BEAKER) (test 25 % mklb=442) MONOCYTES RELATIVE PERCENT (BEAKER) (test 19 % ihzt=950) EOSINOPHILS RELATIVE PERCENT (BEAKER) (test 2 % tvyh=602) BASOPHILS RELATIVE PERCENT (BEAKER) (test 0 % qiib=018) NEUTROPHILS ABSOLUTE COUNT (BEAKER) (test 9.74 K/ L 1.56-6.13 ynsz=069) LYMPHOCYTES ABSOLUTE COUNT (BEAKER) (test 4.57 K/ L 1.18-3.74 vogq=443) MONOCYTES ABSOLUTE COUNT (BEAKER) (test 3.51 K/ L 0.24-0.36 tumk=549) EOSINOPHILS ABSOLUTE COUNT (BEAKER) (test 0.29 K/ L 0.04-0.36 jhxa=235) BASOPHILS ABSOLUTE COUNT (BEAKER) (test 0.07 K/ L 0.01-0.08 rvbf=135) IMMATURE GRANULOCYTES-RELATIVE PERCENT (BEAKER) 1 % 0-1 (test mkxx=6587) [id number] 05:35:00 Test Item Value Reference Range Comments PHOSPHORUS (BEAKER) (test gnof=970) 4.4 mg/dL 2.3-4.7 [id number] 05:35:00 Test Item Value Reference Range Comments MAGNESIUM (BEAKER) (test crxm=046) 1.3 mg/dL 1.6-2.6 BASIC METABOLIC [id number] 05:35:00 Test Item Value Reference Range Comments SODIUM (BEAKER) (test 136 meq/L 136-145 qlbw=468) POTASSIUM (BEAKER) (test 5.4 meq/L 3.5-5.1 xaug=283) CHLORIDE (BEAKER) (test 97 meq/L 98-107 bxia=016) CO2 (BEAKER) (test 31 meq/L 22-29 dacb=380) BLOOD UREA NITROGEN 20 mg/dL 7-21 (BEAKER) (test xiag=766) CREATININE (BEAKER) (test 0.75 mg/dL 0.57-1.25 vnzh=413) GLUCOSE RANDOM (BEAKER) 81 mg/dL 70-105 (test ekbs=490) CALCIUM (BEAKER) (test 9.5 mg/dL 8.4-10.2 qbda=086) EGFR (BEAKER) (test 105 mL/min/1.73 sq m ESTIMATED GFR IS NOT nbnh=0258) ACCURATE CREATININE CLEARANCE IN PREDICTING GLOMERULAR FILTRATION RATE. ESTIMATED GFR IS NOT APPLICABLE FOR DIALYSIS PATIENTS. [id number] 16:19:00 Test Item Value Reference Range Comments POTASSIUM (BEAKER) (test cpqk=195) 5.2 meq/L 3.5-5.1 Repeat after 3 hours kayexalate was given; call result 396- [id number] 12:53:00 Test Item Value Reference Range Comments SODIUM (BEAKER) (test zqzn=552) 137 meq/L 136-145 POTASSIUM (BEAKER) (test hnfj=146) 5.4 meq/L 3.5-5.1 CHLORIDE (BEAKER) (test ojdb=893) 100 meq/L 98-107 CO2 (BEAKER) (test mjom=109) 30 meq/L 22-29 Call results [id number] 11:14:00 Test Item Value Reference Range Comments POTASSIUM (BEAKER) (test xqjb=477) 5.8 meq/L 3.5-5.1 [id number] 06:40:00 Test Item Value Reference Range Comments PHOSPHORUS (BEAKER) (test uayp=431) 5.4 mg/dL 2.3-4.7 [id number] 06:40:00 Test Item Value Reference Range Comments MAGNESIUM (BEAKER) (test nitq=366) 1.6 mg/dL 1.6-2.6 CALCIUM, [id number] 06:27:00 Test Item Value Reference Range Comments CALCIUM IONIZED (BEAKER) (test ojmc=572) 0.99 mmol/L 1.12-1.27 PH, BLOOD (BEAKER) (test zhgk=9300) 7.43 CBC W/PLT COUNT & AUTO [id number] 05:53:00 Test Item Value Reference Range Comments WHITE BLOOD CELL COUNT (BEAKER) (test bmfr=248) 16.2 K/ L 3.5-10.5 RED BLOOD CELL COUNT (BEAKER) (test hilm=651) 2.38 M/ L 3.93-5.22 HEMOGLOBIN (BEAKER) (test ohtt=274) 7.0 GM/DL 11.2-15.7 HEMATOCRIT (BEAKER) (test jfry=106) 22.2 % 34.1-44.9 MEAN CORPUSCULAR VOLUME (BEAKER) (test wrvd=706) 93.3 fL 79.4-94.8 MEAN CORPUSCULAR HEMOGLOBIN (BEAKER) (test 29.4 pg 25.6-32.2 yjrh=626) MEAN CORPUSCULAR HEMOGLOBIN CONC (BEAKER) (test 31.5 GM/DL 32.2-35.5 rmmq=503) RED CELL DISTRIBUTION WIDTH (BEAKER) (test 21.3 % 11.7-14.4 vere=373) PLATELET COUNT (BEAKER) (test fgzr=113) 390 K/CU MM 150-450 MEAN PLATELET VOLUME (BEAKER) (test pdkw=105) 11.8 fL 9.4-12.3 NUCLEATED RED BLOOD CELLS (BEAKER) (test 0 /100 WBC 0-0 ehrn=286) NEUTROPHILS RELATIVE PERCENT (BEAKER) (test 58 % bfmw=935) LYMPHOCYTES RELATIVE PERCENT (BEAKER) (test 23 % vxdu=878) MONOCYTES RELATIVE PERCENT (BEAKER) (test 17 % zdhx=203) EOSINOPHILS RELATIVE PERCENT (BEAKER) (test 2 % ccgr=835) BASOPHILS RELATIVE PERCENT (BEAKER) (test 0 % xysu=874) NEUTROPHILS ABSOLUTE COUNT (BEAKER) (test 9.31 K/ L 1.56-6.13 nnqm=773) LYMPHOCYTES ABSOLUTE COUNT (BEAKER) (test 3.65 K/ L 1.18-3.74 shew=477) MONOCYTES ABSOLUTE COUNT (BEAKER) (test 2.70 K/ L 0.24-0.36 basc=922) EOSINOPHILS ABSOLUTE COUNT (BEAKER) (test 0.36 K/ L 0.04-0.36 rnyp=537) BASOPHILS ABSOLUTE COUNT (BEAKER) (test 0.04 K/ L 0.01-0.08 pdgu=474) IMMATURE GRANULOCYTES-RELATIVE PERCENT (BEAKER) 1 % 0-1 (test capq=7060) BASIC METABOLIC [id number] 17:35:00 Test Item Value Reference Range Comments SODIUM (BEAKER) (test 133 meq/L 136-145 jgjr=810) POTASSIUM (BEAKER) (test 5.4 meq/L 3.5-5.1 otnw=220) CHLORIDE (BEAKER) (test 99 meq/L 98-107 dyah=338) CO2 (BEAKER) (test 26 meq/L 22-29 vjdb=865) BLOOD UREA NITROGEN 23 mg/dL 7-21 (BEAKER) (test rslb=416) CREATININE (BEAKER) (test 0.83 mg/dL 0.57-1.25 lfab=189) GLUCOSE RANDOM (BEAKER) 94 mg/dL 70-105 (test olzc=833) CALCIUM (BEAKER) (test 9.2 mg/dL 8.4-10.2 ojcs=105) EGFR (BEAKER) (test 93 mL/min/1.73 sq m ESTIMATED GFR IS NOT tikq=7835) ACCURATE CREATININE CLEARANCE IN PREDICTING GLOMERULAR FILTRATION RATE. ESTIMATED GFR IS NOT APPLICABLE FOR DIALYSIS PATIENTS. [id number] 06:33:00 Test Item Value Reference Range Comments PHOSPHORUS (BEAKER) (test jvyc=492) 5.3 mg/dL 2.3-4.7 [id number] 06:33:00 Test Item Value Reference Range Comments MAGNESIUM (BEAKER) (test jhcb=098) 1.6 mg/dL 1.6-2.6 BASIC METABOLIC [id number] 06:33:00 Test Item Value Reference Range Comments SODIUM (BEAKER) (test 133 meq/L 136-145 aoiv=645) POTASSIUM (BEAKER) (test 5.2 meq/L 3.5-5.1 nhtd=304) CHLORIDE (BEAKER) (test 97 meq/L 98-107 iuyr=572) CO2 (BEAKER) (test 29 meq/L 22-29 ddry=499) BLOOD UREA NITROGEN 23 mg/dL 7-21 (BEAKER) (test yrwb=825) CREATININE (BEAKER) (test 0.77 mg/dL 0.57-1.25 eody=884) GLUCOSE RANDOM (BEAKER) 92 mg/dL 70-105 (test bozn=128) CALCIUM (BEAKER) (test 9.4 mg/dL 8.4-10.2 lsre=634) EGFR (BEAKER) (test 102 mL/min/1.73 sq m ESTIMATED GFR IS NOT aydv=2778) ACCURATE CREATININE CLEARANCE IN PREDICTING GLOMERULAR FILTRATION RATE. ESTIMATED GFR IS NOT APPLICABLE FOR DIALYSIS PATIENTS. CALCIUM, [id number] 06:22:00 Test Item Value Reference Range Comments CALCIUM IONIZED (BEAKER) (test eqxg=878) 1.18 mmol/L 1.12-1.27 PH, BLOOD (BEAKER) (test hvvz=6488) 7.32 B-TYPE NATRIURETIC FACTOR (BNP)2017-11-21 06:19:00 Test Item Value Reference Range Comments B-TYPE NATRIURETIC PEPTIDE (BEAKER) (test 120 pg/mL 0-100 yjvs=164) CBC W/PLT COUNT & AUTO [id number] 05:59:00 Test Item Value Reference Range Comments WHITE BLOOD CELL COUNT (BEAKER) (test uoed=180) 17.4 K/ L 3.5-10.5 RED BLOOD CELL COUNT (BEAKER) (test yiwz=438) 2.32 M/ L 3.93-5.22 HEMOGLOBIN (BEAKER) (test ttgu=627) 6.7 GM/DL 11.2-15.7 HEMATOCRIT (BEAKER) (test mntp=567) 21.6 % 34.1-44.9 MEAN CORPUSCULAR VOLUME (BEAKER) (test jaje=054) 93.1 fL 79.4-94.8 MEAN CORPUSCULAR HEMOGLOBIN (BEAKER) (test 28.9 pg 25.6-32.2 dmcl=485) MEAN CORPUSCULAR HEMOGLOBIN CONC (BEAKER) (test 31.0 GM/DL 32.2-35.5 oetj=629) RED CELL DISTRIBUTION WIDTH (BEAKER) (test 20.9 % 11.7-14.4 rlho=788) PLATELET COUNT (BEAKER) (test dxrl=392) 367 K/CU MM 150-450 MEAN PLATELET VOLUME (BEAKER) (test kcwg=919) 12.1 fL 9.4-12.3 NUCLEATED RED BLOOD CELLS (BEAKER) (test 0 /100 WBC 0-0 xaql=369) NEUTROPHILS RELATIVE PERCENT (BEAKER) (test 58 % suhr=256) LYMPHOCYTES RELATIVE PERCENT (BEAKER) (test 23 % wgys=492) MONOCYTES RELATIVE PERCENT (BEAKER) (test 16 % dmur=291) EOSINOPHILS RELATIVE PERCENT (BEAKER) (test 3 % oaiz=856) BASOPHILS RELATIVE PERCENT (BEAKER) (test 1 % rujq=810) NEUTROPHILS ABSOLUTE COUNT (BEAKER) (test 10.09 K/ L 1.56-6.13 khzx=923) LYMPHOCYTES ABSOLUTE COUNT (BEAKER) (test 3.92 K/ L 1.18-3.74 iwpm=075) MONOCYTES ABSOLUTE COUNT (BEAKER) (test 2.71 K/ L 0.24-0.36 zqul=525) EOSINOPHILS ABSOLUTE COUNT (BEAKER) (test 0.46 K/ L 0.04-0.36 hhet=572) BASOPHILS ABSOLUTE COUNT (BEAKER) (test 0.08 K/ L 0.01-0.08 jjkj=098) IMMATURE GRANULOCYTES-RELATIVE PERCENT (BEAKER) 1 % 0-1 (test cyul=0670) BLOOD GAS, [id number] 07:22:00 Test Item Value Reference Range Comments PH VENOUS (BEAKER) (test tppd=702) 7.34 7.32-7.42 PCO2 VENOUS (BEAKER) (test auqt=352) 63 mmHg 41-51 PO2 VENOUS (BEAKER) (test jirb=990) 133 mmHg 25-40 O2 SATURATION VENOUS (BEAKER) (test roox=776) 98.4 % 40.0-70.0 HCO3 VENOUS (BEAKER) (test akhp=965) 33 mmol/L 21-29 BASE EXCESS VENOUS (BEAKER) (test dzqb=744) 6.6 mmol/L -2.0-3.0 PATIENT TEMPERATURE (BEAKER) (test moad=4340) 37.0 C FIO2 (BEAKER) (test pifa=6994) 21.0 % CALCIUM, [id number] 07:20:00 Test Item Value Reference Range Comments CALCIUM IONIZED (BEAKER) (test uqjq=091) 1.10 mmol/L 1.12-1.27 PH, BLOOD (BEAKER) (test rgia=8008) 7.33 [id number] 07:18:00 Test Item Value Reference Range Comments PHOSPHORUS (BEAKER) (test euun=278) 4.8 mg/dL 2.3-4.7 [id number] 07:18:00 Test Item Value Reference Range Comments MAGNESIUM (BEAKER) (test rwpi=530) 1.6 mg/dL 1.6-2.6 BASIC METABOLIC [id number] 07:18:00 Test Item Value Reference Range Comments SODIUM (BEAKER) (test 137 meq/L 136-145 nlie=389) POTASSIUM (BEAKER) (test 4.8 meq/L 3.5-5.1 ehjf=062) CHLORIDE (BEAKER) (test 99 meq/L 98-107 ovve=066) CO2 (BEAKER) (test 31 meq/L 22-29 vsvr=742) BLOOD UREA NITROGEN 20 mg/dL 7-21 (BEAKER) (test amhm=642) CREATININE (BEAKER) (test 0.83 mg/dL 0.57-1.25 zqka=459) GLUCOSE RANDOM (BEAKER) 117 mg/dL 70-105 (test hevd=782) CALCIUM (BEAKER) (test 9.5 mg/dL 8.4-10.2 vajx=363) EGFR (BEAKER) (test 93 mL/min/1.73 sq m ESTIMATED GFR IS NOT damd=3393) ACCURATE CREATININE CLEARANCE IN PREDICTING GLOMERULAR FILTRATION RATE. ESTIMATED GFR IS NOT APPLICABLE FOR DIALYSIS PATIENTS. CBC W/PLT COUNT & AUTO [id number] 07:14:00 Test Item Value Reference Range Comments WHITE BLOOD CELL COUNT (BEAKER) (test euiv=144) 16.7 K/ L 3.5-10.5 RED BLOOD CELL COUNT (BEAKER) (test zgay=296) 2.39 M/ L 3.93-5.22 HEMOGLOBIN (BEAKER) (test hedh=094) 6.9 GM/DL 11.2-15.7 HEMATOCRIT (BEAKER) (test wkbe=530) 22.3 % 34.1-44.9 MEAN CORPUSCULAR VOLUME (BEAKER) (test rkel=328) 93.3 fL 79.4-94.8 MEAN CORPUSCULAR HEMOGLOBIN (BEAKER) (test 28.9 pg 25.6-32.2 glpq=899) MEAN CORPUSCULAR HEMOGLOBIN CONC (BEAKER) (test 30.9 GM/DL 32.2-35.5 gcom=359) RED CELL DISTRIBUTION WIDTH (BEAKER) (test 21.1 % 11.7-14.4 mdwc=046) PLATELET COUNT (BEAKER) (test onpk=927) 344 K/CU MM 150-450 MEAN PLATELET VOLUME (BEAKER) (test ejgg=673) 11.7 fL 9.4-12.3 NUCLEATED RED BLOOD CELLS (BEAKER) (test 0 /100 WBC 0-0 puzi=760) NEUTROPHILS RELATIVE PERCENT (BEAKER) (test 60 % vrct=028) LYMPHOCYTES RELATIVE PERCENT (BEAKER) (test 23 % hfqd=641) MONOCYTES RELATIVE PERCENT (BEAKER) (test 14 % yksk=221) EOSINOPHILS RELATIVE PERCENT (BEAKER) (test 3 % sukk=405) BASOPHILS RELATIVE PERCENT (BEAKER) (test 0 % narb=024) NEUTROPHILS ABSOLUTE COUNT (BEAKER) (test 9.95 K/ L 1.56-6.13 tlqz=306) LYMPHOCYTES ABSOLUTE COUNT (BEAKER) (test 3.92 K/ L 1.18-3.74 bhnk=082) MONOCYTES ABSOLUTE COUNT (BEAKER) (test 2.29 K/ L 0.24-0.36 erdl=878) EOSINOPHILS ABSOLUTE COUNT (BEAKER) (test 0.45 K/ L 0.04-0.36 ptaa=441) BASOPHILS ABSOLUTE COUNT (BEAKER) (test 0.04 K/ L 0.01-0.08 mevi=995) IMMATURE GRANULOCYTES-RELATIVE PERCENT (BEAKER) 0 % 0-1 (test tnww=1052) [id number] 11:18:00 Test Item Value Reference Range Comments FERRITIN (BEAKER) (test enga=485) 475[address] ng/mL 5-275 [id number] 07:10:00 Test Item Value Reference Range Comments MAGNESIUM (BEAKER) (test rfmc=125) 2.0 mg/dL 1.6-2.6 BASIC METABOLIC [id number] 07:10:00 Test Item Value Reference Range Comments SODIUM (BEAKER) (test 137 meq/L 136-145 kwgl=380) POTASSIUM (BEAKER) (test 4.5 meq/L 3.5-5.1 irmd=927) CHLORIDE (BEAKER) (test 99 meq/L 98-107 ahyc=723) CO2 (BEAKER) (test 35 meq/L 22-29 hoof=899) BLOOD UREA NITROGEN 18 mg/dL 7-21 (BEAKER) (test cqys=725) CREATININE (BEAKER) (test 0.78 mg/dL 0.57-1.25 lgfx=965) GLUCOSE RANDOM (BEAKER) 102 mg/dL 70-105 (test lhwa=407) CALCIUM (BEAKER) (test 9.4 mg/dL 8.4-10.2 jzrc=823) EGFR (BEAKER) (test 100 mL/min/1.73 sq m ESTIMATED GFR IS NOT vlaj=5513) ACCURATE CREATININE CLEARANCE IN PREDICTING GLOMERULAR FILTRATION RATE. ESTIMATED GFR IS NOT APPLICABLE FOR DIALYSIS PATIENTS. CBC (HEMOGRAM ONLY)2017-11-19 07:06:00 Test Item Value Reference Range Comments WHITE BLOOD CELL COUNT (BEAKER) (test vgne=932) 15.3 K/ L 3.5-10.5 RED BLOOD CELL COUNT (BEAKER) (test kfrc=518) 2.42 M/ L 3.93-5.22 HEMOGLOBIN (BEAKER) (test heon=333) 7.1 GM/DL 11.2-15.7 HEMATOCRIT (BEAKER) (test vllg=775) 22.5 % 34.1-44.9 MEAN CORPUSCULAR VOLUME (BEAKER) (test nnro=994) 93.0 fL 79.4-94.8 MEAN CORPUSCULAR HEMOGLOBIN (BEAKER) (test 29.3 pg 25.6-32.2 ufxq=384) MEAN CORPUSCULAR HEMOGLOBIN CONC (BEAKER) (test 31.6 GM/DL 32.2-35.5 ijgf=841) RED CELL DISTRIBUTION WIDTH (BEAKER) (test 20.9 % 11.7-14.4 iiho=507) PLATELET COUNT (BEAKER) (test fhiy=482) 324 K/CU MM 150-450 MEAN PLATELET VOLUME (BEAKER) (test qzsf=485) 11.8 fL 9.4-12.3 NUCLEATED RED BLOOD CELLS (BEAKER) (test 1 /100 WBC 0-0 vhof=985) BLOOD [id number] 06:00:00 Test Item Value Reference Range Comments CULTURE (BEAKER) (test skql=4806) No growth in 5 days ANTI-NUCLEAR ANTIBODY (AMARILYS)2017-11-17 14:21:00 Test Item Value Reference Range Comments ANTI-NUCLEAR ANTIBODY (AMARILYS) (BEAKER) (test Positive Negative zxvv=029) AMARILYS TITER AND [id number] 14:21:00 Test Item Value Reference Range Comments AMARILYS TITER (BEAKER) (test :160 fmgr=6712) AMARILYS PATTERN (BEAKER) (test Multiple nuclear dots pattern hwug=3336) [id number] 07:16:00 Test Item Value Reference Range Comments PHOSPHORUS (BEAKER) (test usuh=290) 4.5 mg/dL 2.3-4.7 [id number] 07:16:00 Test Item Value Reference Range Comments MAGNESIUM (BEAKER) (test xqeq=518) 1.4 mg/dL 1.6-2.6 BASIC METABOLIC [id number] 07:16:00 Test Item Value Reference Range Comments SODIUM (BEAKER) (test 141 meq/L 136-145 ggkr=546) POTASSIUM (BEAKER) (test 4.2 meq/L 3.5-5.1 bely=512) CHLORIDE (BEAKER) (test 98 meq/L 98-107 jztl=518) CO2 (BEAKER) (test 34 meq/L 22-29 ymuz=656) BLOOD UREA NITROGEN 21 mg/dL 7-21 (BEAKER) (test upix=186) CREATININE (BEAKER) (test 0.85 mg/dL 0.57-1.25 iblh=245) GLUCOSE RANDOM (BEAKER) 98 mg/dL 70-105 (test hdud=255) CALCIUM (BEAKER) (test 9.2 mg/dL 8.4-10.2 whxd=750) EGFR (BEAKER) (test 91 mL/min/1.73 sq m ESTIMATED GFR IS NOT vgqf=1707) ACCURATE CREATININE CLEARANCE IN PREDICTING GLOMERULAR FILTRATION RATE. ESTIMATED GFR IS NOT APPLICABLE FOR DIALYSIS PATIENTS. HEPATIC FUNCTION [id number] 07:16:00 Test Item Value Reference Range Comments TOTAL PROTEIN (BEAKER) (test veib=533) 8.3 gm/dL 6.0-8.3 ALBUMIN (BEAKER) (test bjue=5305) 3.0 g/dL 3.5-5.0 BILIRUBIN TOTAL (BEAKER) (test jitp=212) 1.3 mg/dL 0.2-1.2 BILIRUBIN DIRECT (BEAKER) (test igka=638) 0.7 mg/dL 0.1-0.5 ALKALINE PHOSPHATASE (BEAKER) (test xpll=189) 217 U/L 40-150 AST (SGOT) (BEAKER) (test psxy=092) 106 U/L 5-34 ALT (SGPT) (BEAKER) (test onbz=130) 46 U/L 6-55 CALCIUM, [id number] 06:50:00 Test Item Value Reference Range Comments CALCIUM IONIZED (BEAKER) (test plcg=218) 1.11 mmol/L 1.12-1.27 PH, BLOOD (BEAKER) (test gjnk=0367) 7.34 CBC W/PLT COUNT & AUTO [id number] 06:09:00 Test Item Value Reference Range Comments WHITE BLOOD CELL COUNT (BEAKER) (test ngtq=076) 16.8 K/ L 3.5-10.5 RED BLOOD CELL COUNT (BEAKER) (test gviu=872) 2.53 M/ L 3.93-5.22 HEMOGLOBIN (BEAKER) (test stkx=860) 7.3 GM/DL 11.2-15.7 HEMATOCRIT (BEAKER) (test ohye=284) 23.3 % 34.1-44.9 MEAN CORPUSCULAR VOLUME (BEAKER) (test bsqu=685) 92.1 fL 79.4-94.8 MEAN CORPUSCULAR HEMOGLOBIN (BEAKER) (test 28.9 pg 25.6-32.2 svpu=996) MEAN CORPUSCULAR HEMOGLOBIN CONC (BEAKER) (test 31.3 GM/DL 32.2-35.5 zmfq=991) RED CELL DISTRIBUTION WIDTH (BEAKER) (test 20.2 % 11.7-14.4 dlgv=437) PLATELET COUNT (BEAKER) (test kpyj=513) 305 K/CU MM 150-450 MEAN PLATELET VOLUME (BEAKER) (test eilz=682) 12.0 fL 9.4-12.3 NUCLEATED RED BLOOD CELLS (BEAKER) (test 1 /100 WBC 0-0 lehf=927) NEUTROPHILS RELATIVE PERCENT (BEAKER) (test 66 % maqx=648) LYMPHOCYTES RELATIVE PERCENT (BEAKER) (test 20 % evct=331) MONOCYTES RELATIVE PERCENT (BEAKER) (test 11 % nqeg=827) EOSINOPHILS RELATIVE PERCENT (BEAKER) (test 3 % bubm=070) BASOPHILS RELATIVE PERCENT (BEAKER) (test 0 % dciq=756) NEUTROPHILS ABSOLUTE COUNT (BEAKER) (test 10.99 K/ L 1.56-6.13 hzfe=410) LYMPHOCYTES ABSOLUTE COUNT (BEAKER) (test 3.29 K/ L 1.18-3.74 gusa=431) MONOCYTES ABSOLUTE COUNT (BEAKER) (test 1.89 K/ L 0.24-0.36 ilcs=133) EOSINOPHILS ABSOLUTE COUNT (BEAKER) (test 0.48 K/ L 0.04-0.36 micb=599) BASOPHILS ABSOLUTE COUNT (BEAKER) (test 0.05 K/ L 0.01-0.08 ybbm=652) IMMATURE GRANULOCYTES-RELATIVE PERCENT (BEAKER) 0 % 0-1 (test apvy=7992) HEPATITIS PANEL, [id number] 14:32:00 Test Item Value Reference Range Comments HEPATITIS A IGM ANTIBODY (BEAKER) (test Nonreactive Nonreactive sxwg=877) HEPATITIS B CORE IGM ANTIBODY (BEAKER) (test Nonreactive Nonreactive titt=542) HEPATITIS C ANTIBODY (BEAKER) (test wrmw=645) Nonreactive Nonreactive HEPATITIS B SURFACE ANTIGEN (2) (BEAKER) (test Nonreactive Nonreactive uvub=9957) RAD, MANDIBLE, LESS THAN 4 [id number] 12:28:00Reason for exam:->fever, dental cariesFINAL REPORT Mandible [...] air cells are well aerated. Signed: Anselmo [employer]ep[employer] with [place] Verified Date/Time: 11/16/2017 12:28:43 Reading Location: [facility] Radiology Reading Room RAD, CHEST, 2 [id number] 10:47:00Reason for exam:-> fever, chest painFINAL REPORT [...] MDReport Verified Date/Time: 11/16/2017 10:47:19 Reading Location: [facility] Radiology Reading Room URINE [id number] 09:53:00 Test Item Value Reference Range Comments CULTURE (BEAKER) (test ayqr=8585) >100,000 col/mL skin valentino CBC W/PLT COUNT & AUTO [id number] 09:20:00 Test Item Value Reference Range Comments WHITE BLOOD CELL COUNT (BEAKER) (test hcrf=107) 18.6 K/ L 3.5-10.5 RED BLOOD CELL COUNT (BEAKER) (test akwd=013) 2.63 M/ L 3.93-5.22 HEMOGLOBIN (BEAKER) (test zyrw=903) 7.6 GM/DL 11.2-15.7 HEMATOCRIT (BEAKER) (test jflq=561) 23.8 % 34.1-44.9 MEAN CORPUSCULAR VOLUME (BEAKER) (test zswj=425) 90.5 fL 79.4-94.8 MEAN CORPUSCULAR HEMOGLOBIN (BEAKER) (test 28.9 pg 25.6-32.2 gnlc=298) MEAN CORPUSCULAR HEMOGLOBIN CONC (BEAKER) (test 31.9 GM/DL 32.2-35.5 qcsj=096) RED CELL DISTRIBUTION WIDTH (BEAKER) (test 19.9 % 11.7-14.4 hdpw=497) PLATELET COUNT (BEAKER) (test idef=035) 330 K/CU MM 150-450 MEAN PLATELET VOLUME (BEAKER) (test lyub=596) 11.9 fL 9.4-12.3 NUCLEATED RED BLOOD CELLS (BEAKER) (test 1 /100 WBC 0-0 aptz=002) NEUTROPHILS RELATIVE PERCENT (BEAKER) (test 65 % ljqj=981) LYMPHOCYTES RELATIVE PERCENT (BEAKER) (test 22 % ayue=263) MONOCYTES RELATIVE PERCENT (BEAKER) (test 10 % erux=141) EOSINOPHILS RELATIVE PERCENT (BEAKER) (test 2 % yvpj=371) BASOPHILS RELATIVE PERCENT (BEAKER) (test 0 % fnwv=712) NEUTROPHILS ABSOLUTE COUNT (BEAKER) (test 12.09 K/ L 1.56-6.13 cvjd=835) LYMPHOCYTES ABSOLUTE COUNT (BEAKER) (test 4.02 K/ L 1.18-3.74 ehrq=334) MONOCYTES ABSOLUTE COUNT (BEAKER) (test 1.90 K/ L 0.24-0.36 tgks=716) EOSINOPHILS ABSOLUTE COUNT (BEAKER) (test 0.41 K/ L 0.04-0.36 zarz=317) BASOPHILS ABSOLUTE COUNT (BEAKER) (test 0.05 K/ L 0.01-0.08 rufg=404) IMMATURE GRANULOCYTES-RELATIVE PERCENT (BEAKER) 0 % 0-1 (test cfuw=3480) (MANUAL DIFFERENTIAL)2017-11-16 09:20:00 Test Item Value Reference Range Comments TOTAL COUNTED (BEAKER) (test ieeb=8142) WBC MORPHOLOGY (BEAKER) (test wywx=593) Normal PLT MORPHOLOGY (BEAKER) (test vjev=791) Normal POLYCHROMATOPHILLIC RBCS(BEAKER) (test jfhj=009) 1+ few SICKLE CELLS (BEAKER) (test wkty=755) 1+ few TARGET CELLS (BEAKER) (test uigb=164) 2+ moderate CALCIUM, [id number] 07:28:00 Test Item Value Reference Range Comments CALCIUM IONIZED (BEAKER) (test ryfe=175) 0.97 mmol/L 1.12-1.27 PH, BLOOD (BEAKER) (test hczc=2461) 7.45 [id number] 05:48:00 Test Item Value Reference Range Comments PHOSPHORUS (BEAKER) (test uysk=108) 4.8 mg/dL 2.3-4.7 [id number] 05:48:00 Test Item Value Reference Range Comments MAGNESIUM (BEAKER) (test zuzq=822) 1.6 mg/dL 1.6-2.6 BASIC METABOLIC [id number] 05:48:00 Test Item Value Reference Range Comments SODIUM (BEAKER) (test 139 meq/L 136-145 kpfu=379) POTASSIUM (BEAKER) (test 3.9 meq/L 3.5-5.1 tvvn=320) CHLORIDE (BEAKER) (test 98 meq/L 98-107 awkm=036) CO2 (BEAKER) (test 32 meq/L 22-29 nlmg=778) BLOOD UREA NITROGEN 23 mg/dL 7-21 (BEAKER) (test kskf=935) CREATININE (BEAKER) (test 1.10 mg/dL 0.57-1.25 fkcr=830) GLUCOSE RANDOM (BEAKER) 115 mg/dL 70-105 (test daxs=434) CALCIUM (BEAKER) (test 9.0 mg/dL 8.4-10.2 vckg=960) EGFR (BEAKER) (test 67 mL/min/1.73 sq m ESTIMATED GFR IS NOT zacs=6250) ACCURATE CREATININE CLEARANCE IN PREDICTING GLOMERULAR FILTRATION RATE. ESTIMATED GFR IS NOT APPLICABLE FOR DIALYSIS PATIENTS. URINALYSIS W/ [id number] 19:14:00 Test Item Value Reference Range Comments COLOR (BEAKER) (test oneq=885) Yellow CLARITY (BEAKER) (test tkps=760) Clear SPECIFIC GRAVITY UA (BEAKER) (test izpn=398) 1.006 1.001-1.035 PH UA (BEAKER) (test ldja=443) 7.5 5.0-8.0 PROTEIN UA (BEAKER) (test croo=960) Negative Negative GLUCOSE UA (BEAKER) (test rvbe=574) Negative Negative KETONES UA (BEAKER) (test bxnp=483) Negative Negative BILIRUBIN UA (BEAKER) (test jady=809) Negative Negative BLOOD UA (BEAKER) (test vrrf=232) Trace Negative NITRITE UA (BEAKER) (test ewcx=727) Negative Negative LEUKOCYTE ESTERASE UA (BEAKER) (test kjsj=378) Small Negative UROBILINOGEN UA (BEAKER) (test xtiq=706) 0.2 mg/dL 0.2-1.0 RBC UA (BEAKER) (test zaty=672) < /HPF WBC UA (BEAKER) (test mubf=433) 7 /HPF BACTERIA (BEAKER) (test samo=256) Rare SQUAMOUS EPITHELIAL (BEAKER) (test rrpc=172) 1 /HPF SOURCE(BEAKER) (test xorz=3891) Urine, Voided [id number] 13:26:00 Test Item Value Reference Range Comments LIPASE (BEAKER) (test xmuq=573) 95 U/L 8-78 RAD, ABDOMEN/KUB, 1 VIEW [id number] 12:43:00Reason for exam:->abdominal painFINAL REPORT Abdomen one [...] Caineport Verified Date/Time: 11/15/2017 12:43:04 Reading Location: [facility] Radiology Reading Room CBC W/PLT COUNT & AUTO [id number] 10:00:00 Test Item Value Reference Range Comments WHITE BLOOD CELL COUNT (BEAKER) (test bzpn=235) 18.8 K/ L 3.5-10.5 RED BLOOD CELL COUNT (BEAKER) (test pvgy=082) 1.83 M/ L 3.93-5.22 HEMOGLOBIN (BEAKER) (test mudj=013) 5.4 GM/DL 11.2-15.7 HEMATOCRIT (BEAKER) (test jxaf=908) 16.7 % 34.1-44.9 MEAN CORPUSCULAR VOLUME (BEAKER) (test chkh=881) 91.3 fL 79.4-94.8 MEAN CORPUSCULAR HEMOGLOBIN (BEAKER) (test 29.5 pg 25.6-32.2 etks=416) MEAN CORPUSCULAR HEMOGLOBIN CONC (BEAKER) (test 32.3 GM/DL 32.2-35.5 jjqa=697) RED CELL DISTRIBUTION WIDTH (BEAKER) (test 21.7 % 11.7-14.4 yflk=194) PLATELET COUNT (BEAKER) (test myko=376) 340 K/CU MM 150-450 MEAN PLATELET VOLUME (BEAKER) (test koqy=214) 11.3 fL 9.4-12.3 NUCLEATED RED BLOOD CELLS (BEAKER) (test 2 /100 WBC 0-0 vuxq=865) NEUTROPHILS RELATIVE PERCENT (BEAKER) (test 65 % jivx=411) LYMPHOCYTES RELATIVE PERCENT (BEAKER) (test 23 % jjld=534) MONOCYTES RELATIVE PERCENT (BEAKER) (test 10 % zvmd=588) EOSINOPHILS RELATIVE PERCENT (BEAKER) (test 1 % ubww=708) BASOPHILS RELATIVE PERCENT (BEAKER) (test 0 % rnjg=950) NEUTROPHILS ABSOLUTE COUNT (BEAKER) (test 12.25 K/ L 1.56-6.13 kqfq=800) LYMPHOCYTES ABSOLUTE COUNT (BEAKER) (test 4.31 K/ L 1.18-3.74 ecvx=503) MONOCYTES ABSOLUTE COUNT (BEAKER) (test 1.88 K/ L 0.24-0.36 qoii=883) EOSINOPHILS ABSOLUTE COUNT (BEAKER) (test 0.26 K/ L 0.04-0.36 ofat=253) BASOPHILS ABSOLUTE COUNT (BEAKER) (test 0.02 K/ L 0.01-0.08 dbol=040) IMMATURE GRANULOCYTES-RELATIVE PERCENT (BEAKER) 1 % 0-1 (test gusn=9312) (MANUAL DIFFERENTIAL)2017-11-15 10:00:00 Test Item Value Reference Range Comments TOTAL COUNTED (BEAKER) (test ewmp=2516) ATYPICAL LYMPHS(BEAKER) (test yoog=4811) Present LARGE PLT(BEAKER) (test rphk=1206) Present HYPOCHROMIA (BEAKER) (test lznf=770) 1+ few POLYCHROMATOPHILLIC RBCS(BEAKER) (test pqje=936) 1+ few SICKLE CELLS (BEAKER) (test luly=962) 1+ few TARGET CELLS (BEAKER) (test fqhe=819) 1+ few U/S, ENDOVAGINAL (EV)2017-11-15 09:03:00Reason for [...] MDReport Verified Date/Time: 2017 09:03:15 Reading Location: [facility] [id number] Ultrasound Reading Room CBC W/ PLT COUNT & AUTO [id number] 08:32:00 Test Item Value Reference Range Comments WHITE BLOOD CELL COUNT (BEAKER) (test bygx=794) 19.8 K/ L 3.5-10.5 RED BLOOD CELL COUNT (BEAKER) (test pchy=755) 1.89 M/ L 3.93-5.22 HEMOGLOBIN (BEAKER) (test itft=788) 5.6 GM/DL 11.2-15.7 HEMATOCRIT (BEAKER) (test urln=715) 17.2 % 34.1-44.9 MEAN CORPUSCULAR VOLUME (BEAKER) (test ubws=112) 91.0 fL 79.4-94.8 MEAN CORPUSCULAR HEMOGLOBIN (BEAKER) (test 29.6 pg 25.6-32.2 shml=011) MEAN CORPUSCULAR HEMOGLOBIN CONC (BEAKER) (test 32.6 GM/DL 32.2-35.5 esxb=557) RED CELL DISTRIBUTION WIDTH (BEAKER) (test 21.4 % 11.7-14.4 gwgd=231) PLATELET COUNT (BEAKER) (test ffyf=446) 366 K/CU MM 150-450 MEAN PLATELET VOLUME (BEAKER) (test lwex=424) 11.6 fL 9.4-12.3 NUCLEATED RED BLOOD CELLS (BEAKER) (test 2 /100 WBC 0-0 ocaj=518) NEUTROPHILS RELATIVE PERCENT (BEAKER) (test 70 % snmn=168) LYMPHOCYTES RELATIVE PERCENT (BEAKER) (test 18 % qkps=718) MONOCYTES RELATIVE PERCENT (BEAKER) (test 10 % ucvj=004) EOSINOPHILS RELATIVE PERCENT (BEAKER) (test 1 % owrn=757) BASOPHILS RELATIVE PERCENT (BEAKER) (test 0 % wdwn=898) NEUTROPHILS ABSOLUTE COUNT (BEAKER) (test 13.93 K/ L 1.56-6.13 ilcu=191) LYMPHOCYTES ABSOLUTE COUNT (BEAKER) (test 3.51 K/ L 1.18-3.74 psun=918) MONOCYTES ABSOLUTE COUNT (BEAKER) (test 2.03 K/ L 0.24-0.36 kaiz=842) EOSINOPHILS ABSOLUTE COUNT (BEAKER) (test 0.23 K/ L 0.04-0.36 annv=160) BASOPHILS ABSOLUTE COUNT (BEAKER) (test 0.02 K/ L 0.01-0.08 szty=176) IMMATURE GRANULOCYTES-RELATIVE PERCENT (BEAKER) 0 % 0-1 (test dfkb=0934) [id number] 06:16:00 Test Item Value Reference Range Comments PHOSPHORUS (BEAKER) (test cyzx=460) 4.6 mg/dL 2.3-4.7 [id number] 06:16:00 Test Item Value Reference Range Comments MAGNESIUM (BEAKER) (test favn=381) 1.6 mg/dL 1.6-2.6 BASIC METABOLIC [id number] 06:16:00 Test Item Value Reference Range Comments SODIUM (BEAKER) (test 139 meq/L 136-145 fujr=254) POTASSIUM (BEAKER) (test 3.9 meq/L 3.5-5.1 tenq=726) CHLORIDE (BEAKER) (test 97 meq/L 98-107 nmks=950) CO2 (BEAKER) (test 33 meq/L 22-29 cyhs=295) BLOOD UREA NITROGEN 24 mg/dL 7-21 (BEAKER) (test rgwz=376) CREATININE (BEAKER) (test 1.15 mg/dL 0.57-1.25 pvmn=734) GLUCOSE RANDOM (BEAKER) 104 mg/dL 70-105 (test vgvl=062) CALCIUM (BEAKER) (test 9.1 mg/dL 8.4-10.2 rgzf=260) EGFR (BEAKER) (test 64 mL/min/1.73 sq m ESTIMATED GFR IS NOT wvqh=7692) ACCURATE CREATININE CLEARANCE IN PREDICTING GLOMERULAR FILTRATION RATE. ESTIMATED GFR IS NOT APPLICABLE FOR DIALYSIS PATIENTS. HEPATIC FUNCTION [id number] 06:16:00 Test Item Value Reference Range Comments TOTAL PROTEIN (BEAKER) (test spnp=137) 8.2 gm/dL 6.0-8.3 ALBUMIN (BEAKER) (test ngmy=2875) 2.9 g/dL 3.5-5.0 BILIRUBIN TOTAL (BEAKER) (test avep=557) 1.1 mg/dL 0.2-1.2 BILIRUBIN DIRECT (BEAKER) (test cuco=414) 0.5 mg/dL 0.1-0.5 ALKALINE PHOSPHATASE (BEAKER) (test xgms=968) 164 U/L 40-150 AST (SGOT) (BEAKER) (test irmc=436) 76 U/L 5-34 ALT (SGPT) (BEAKER) (test esvz=614) 34 U/L 6-55 CALCIUM, [id number] 06:00:00 Test Item Value Reference Range Comments CALCIUM IONIZED (BEAKER) (test ojcu=584) 0.93 mmol/L 1.12-1.27 PH, BLOOD (BEAKER) (test vjpw=6420) 7.52 URINALYSIS W/ [id number] 18:32:00 Test Item Value Reference Range Comments COLOR (BEAKER) (test mwkr=490) Light Yellow CLARITY (BEAKER) (test yaem=601) Clear SPECIFIC GRAVITY UA (BEAKER) (test rieo=723) 1.006 1.001-1.035 PH UA (BEAKER) (test ddku=977) 7.0 5.0-8.0 PROTEIN UA (BEAKER) (test frrx=734) Negative Negative GLUCOSE UA (BEAKER) (test jvsp=260) Negative Negative KETONES UA (BEAKER) (test rajc=299) Negative Negative BILIRUBIN UA (BEAKER) (test znzk=261) Negative Negative BLOOD UA (BEAKER) (test oawm=759) Trace Negative NITRITE UA (BEAKER) (test avhe=081) Negative Negative LEUKOCYTE ESTERASE UA (BEAKER) (test fjjk=409) Small Negative UROBILINOGEN UA (BEAKER) (test ffwm=563) 0.2 mg/dL 0.2-1.0 RBC UA (BEAKER) (test fioy=258) 1 /HPF WBC UA (BEAKER) (test yfxc=482) 7 /HPF BACTERIA (BEAKER) (test vmir=362) Rare MUCUS (BEAKER) (test wcyx=1438) Rare SQUAMOUS EPITHELIAL (BEAKER) (test emev=376) 4 /HPF SOURCE(BEAKER) (test vqfb=7857) Urine, Voided CALCIUM, [id number] 07:19:00 Test Item Value Reference Range Comments CALCIUM IONIZED (BEAKER) (test dbme=199) 1.03 mmol/L 1.12-1.27 PH, BLOOD (BEAKER) (test lmde=6638) 7.40 CBC W/PLT COUNT & AUTO [id number] 06:26:00 Test Item Value Reference Range Comments WHITE BLOOD CELL COUNT (BEAKER) (test itrg=162) 18.5 K/ L 3.5-10.5 RED BLOOD CELL COUNT (BEAKER) (test qnzt=661) 2.02 M/ L 3.93-5.22 HEMOGLOBIN (BEAKER) (test zxgh=652) 6.0 GM/DL 11.2-15.7 HEMATOCRIT (BEAKER) (test sjhz=418) 18.5 % 34.1-44.9 MEAN CORPUSCULAR VOLUME (BEAKER) (test xfuy=879) 91.6 fL 79.4-94.8 MEAN CORPUSCULAR HEMOGLOBIN (BEAKER) (test 29.7 pg 25.6-32.2 hcyj=652) MEAN CORPUSCULAR HEMOGLOBIN CONC (BEAKER) (test 32.4 GM/DL 32.2-35.5 erfo=641) RED CELL DISTRIBUTION WIDTH (BEAKER) (test 21.9 % 11.7-14.4 ddoz=815) PLATELET COUNT (BEAKER) (test zfza=923) 337 K/CU MM 150-450 MEAN PLATELET VOLUME (BEAKER) (test dmyx=775) 11.7 fL 9.4-12.3 NUCLEATED RED BLOOD CELLS (BEAKER) (test 4 /100 WBC 0-0 ocfy=069) NEUTROPHILS RELATIVE PERCENT (BEAKER) (test 76 % rwqm=779) LYMPHOCYTES RELATIVE PERCENT (BEAKER) (test 16 % epsw=829) MONOCYTES RELATIVE PERCENT (BEAKER) (test 6 % uwee=397) EOSINOPHILS RELATIVE PERCENT (BEAKER) (test 1 % upol=388) BASOPHILS RELATIVE PERCENT (BEAKER) (test 0 % ksdn=358) NEUTROPHILS ABSOLUTE COUNT (BEAKER) (test 13.98 K/ L 1.56-6.13 bkus=702) LYMPHOCYTES ABSOLUTE COUNT (BEAKER) (test 3.02 K/ L 1.18-3.74 jirk=467) MONOCYTES ABSOLUTE COUNT (BEAKER) (test 1.13 K/ L 0.24-0.36 nkci=702) EOSINOPHILS ABSOLUTE COUNT (BEAKER) (test 0.09 K/ L 0.04-0.36 pfxo=214) BASOPHILS ABSOLUTE COUNT (BEAKER) (test 0.05 K/ L 0.01-0.08 hwje=599) IMMATURE GRANULOCYTES-RELATIVE PERCENT (BEAKER) 1 % 0-1 (test mhoh=5522) [id number] 06:21:00 Test Item Value Reference Range Comments PHOSPHORUS (BEAKER) (test smiz=155) 4.3 mg/dL 2.3-4.7 [id number] 06:21:00 Test Item Value Reference Range Comments MAGNESIUM (BEAKER) (test jbch=577) 2.1 mg/dL 1.6-2.6 BASIC METABOLIC [id number] 06:21:00 Test Item Value Reference Range Comments SODIUM (BEAKER) (test 139 meq/L 136-145 yrxn=528) POTASSIUM (BEAKER) (test 4.0 meq/L 3.5-5.1 mcek=088) CHLORIDE (BEAKER) (test 99 meq/L 98-107 uqoe=597) CO2 (BEAKER) (test 31 meq/L 22-29 gdfz=646) BLOOD UREA NITROGEN 23 mg/dL 7-21 (BEAKER) (test eyfu=490) CREATININE (BEAKER) (test 1.29 mg/dL 0.57-1.25 earp=309) GLUCOSE RANDOM (BEAKER) 116 mg/dL 70-105 (test dmui=464) CALCIUM (BEAKER) (test 8.8 mg/dL 8.4-10.2 ntxb=970) EGFR (BEAKER) (test 56 mL/min/1.73 sq m ESTIMATED GFR IS NOT ghxz=7680) ACCURATE CREATININE CLEARANCE IN PREDICTING GLOMERULAR FILTRATION RATE. ESTIMATED GFR IS NOT APPLICABLE FOR DIALYSIS PATIENTS. B-TYPE NATRIURETIC FACTOR (BNP)2017-11-13 07:27:00 Test Item Value Reference Range Comments B-TYPE NATRIURETIC PEPTIDE (BEAKER) (test 166 pg/mL 0-100 vyew=996) [id number] 07:26:00 Test Item Value Reference Range Comments PHOSPHORUS (BEAKER) (test cswb=625) 4.6 mg/dL 2.3-4.7 [id number] 07:26:00 Test Item Value Reference Range Comments MAGNESIUM (BEAKER) (test lvoy=358) 1.6 mg/dL 1.6-2.6 BASIC METABOLIC [id number] 07:26:00 Test Item Value Reference Range Comments SODIUM (BEAKER) (test 139 meq/L 136-145 zpxt=760) POTASSIUM (BEAKER) (test 3.5 meq/L 3.5-5.1 tdpa=958) CHLORIDE (BEAKER) (test 101 meq/L 98-107 kcsw=767) CO2 (BEAKER) (test 32 meq/L 22-29 kwhg=501) BLOOD UREA NITROGEN 14 mg/dL 7-21 (BEAKER) (test ytzk=169) CREATININE (BEAKER) (test 1.09 mg/dL 0.57-1.25 nwjr=196) GLUCOSE RANDOM (BEAKER) 92 mg/dL 70-105 (test uxrw=421) CALCIUM (BEAKER) (test 8.5 mg/dL 8.4-10.2 bksw=218) EGFR (BEAKER) (test 68 mL/min/1.73 sq m ESTIMATED GFR IS NOT ndvx=4290) ACCURATE CREATININE CLEARANCE IN PREDICTING GLOMERULAR FILTRATION RATE. ESTIMATED GFR IS NOT APPLICABLE FOR DIALYSIS PATIENTS. CBC W/PLT COUNT & AUTO [id number] 07:23:00 Test Item Value Reference Range Comments WHITE BLOOD CELL COUNT (BEAKER) (test sril=611) 18.4 K/ L 3.5-10.5 RED BLOOD CELL COUNT (BEAKER) (test yghm=227) 2.03 M/ L 3.93-5.22 HEMOGLOBIN (BEAKER) (test lkuu=343) 6.0 GM/DL 11.2-15.7 HEMATOCRIT (BEAKER) (test eyks=849) 18.8 % 34.1-44.9 MEAN CORPUSCULAR VOLUME (BEAKER) (test bjyl=316) 92.6 fL 79.4-94.8 MEAN CORPUSCULAR HEMOGLOBIN (BEAKER) (test 29.6 pg 25.6-32.2 fvos=815) MEAN CORPUSCULAR HEMOGLOBIN CONC (BEAKER) (test 31.9 GM/DL 32.2-35.5 gdfu=668) RED CELL DISTRIBUTION WIDTH (BEAKER) (test 22.9 % 11.7-14.4 nweh=580) PLATELET COUNT (BEAKER) (test aymn=202) 302 K/CU MM 150-450 MEAN PLATELET VOLUME (BEAKER) (test jkii=670) 11.3 fL 9.4-12.3 NUCLEATED RED BLOOD CELLS (BEAKER) (test 7 /100 WBC 0-0 kqhz=491) NEUTROPHILS RELATIVE PERCENT (BEAKER) (test 74 % zuuf=387) LYMPHOCYTES RELATIVE PERCENT (BEAKER) (test 18 % iiol=285) MONOCYTES RELATIVE PERCENT (BEAKER) (test 7 % vxdn=683) EOSINOPHILS RELATIVE PERCENT (BEAKER) (test 0 % vtbz=695) BASOPHILS RELATIVE PERCENT (BEAKER) (test 0 % spxf=073) NEUTROPHILS ABSOLUTE COUNT (BEAKER) (test 13.58 K/ L 1.56-6.13 dfcn=716) LYMPHOCYTES ABSOLUTE COUNT (BEAKER) (test 3.24 K/ L 1.18-3.74 kulr=781) MONOCYTES ABSOLUTE COUNT (BEAKER) (test 1.23 K/ L 0.24-0.36 nvge=092) EOSINOPHILS ABSOLUTE COUNT (BEAKER) (test 0.07 K/ L 0.04-0.36 hvsd=507) BASOPHILS ABSOLUTE COUNT (BEAKER) (test 0.05 K/ L 0.01-0.08 lryy=334) IMMATURE GRANULOCYTES-RELATIVE PERCENT (BEAKER) 1 % 0-1 (test vqam=9456) CALCIUM, [id number] 07:08:00 Test Item Value Reference Range Comments CALCIUM IONIZED (BEAKER) (test sthm=331) 1.03 mmol/L 1.12-1.27 PH, BLOOD (BEAKER) (test ijjm=6268) 7.38 CBC W/PLT COUNT & AUTO [id number] 08:23:00 Test Item Value Reference Range Comments WHITE BLOOD CELL COUNT (BEAKER) (test mfgc=889) 20.4 K/ L 3.5-10.5 RED BLOOD CELL COUNT (BEAKER) (test zidn=776) 2.08 M/ L 3.93-5.22 HEMOGLOBIN (BEAKER) (test btsf=436) 6.4 GM/DL 11.2-15.7 HEMATOCRIT (BEAKER) (test njvo=163) 19.7 % 34.1-44.9 MEAN CORPUSCULAR VOLUME (BEAKER) (test tcel=727) 94.7 fL 79.4-94.8 MEAN CORPUSCULAR HEMOGLOBIN (BEAKER) (test 30.8 pg 25.6-32.2 iovs=349) MEAN CORPUSCULAR HEMOGLOBIN CONC (BEAKER) (test 32.5 GM/DL 32.2-35.5 gdck=173) RED CELL DISTRIBUTION WIDTH (BEAKER) (test 24.3 % 11.7-14.4 aozk=499) PLATELET COUNT (BEAKER) (test xiwh=349) 290 K/CU MM 150-450 MEAN PLATELET VOLUME (BEAKER) (test sgdt=270) 11.5 fL 9.4-12.3 NUCLEATED RED BLOOD CELLS (BEAKER) (test 19 /100 WBC 0-0 txhg=842) NEUTROPHILS RELATIVE PERCENT (BEAKER) (test 75 % xqix=809) LYMPHOCYTES RELATIVE PERCENT (BEAKER) (test 16 % gvpf=969) MONOCYTES RELATIVE PERCENT (BEAKER) (test 8 % cmxv=111) EOSINOPHILS RELATIVE PERCENT (BEAKER) (test 0 % rtmj=783) BASOPHILS RELATIVE PERCENT (BEAKER) (test 0 % ykhn=673) NEUTROPHILS ABSOLUTE COUNT (BEAKER) (test 15.32 K/ L 1.56-6.13 gjgx=810) LYMPHOCYTES ABSOLUTE COUNT (BEAKER) (test 3.24 K/ L 1.18-3.74 cssc=037) MONOCYTES ABSOLUTE COUNT (BEAKER) (test 1.61 K/ L 0.24-0.36 bgqh=525) EOSINOPHILS ABSOLUTE COUNT (BEAKER) (test 0.05 K/ L 0.04-0.36 eeou=871) BASOPHILS ABSOLUTE COUNT (BEAKER) (test 0.04 K/ L 0.01-0.08 oukr=572) IMMATURE GRANULOCYTES-RELATIVE PERCENT (BEAKER) 0 % 0-1 (test lyar=0448) (MANUAL DIFFERENTIAL)2017-11-12 08:23:00 Test Item Value Reference Range Comments TOTAL COUNTED (BEAKER) (test lkfx=7746) WBC MORPHOLOGY (BEAKER) (test pbaq=021) Normal LARGE PLT(BEAKER) (test xabn=3082) Present HYPOCHROMIA (BEAKER) (test ocqn=875) 1+ few POLYCHROMATOPHILLIC RBCS(BEAKER) (test uxfk=215) 1+ few SICKLE CELLS (BEAKER) (test vhrp=160) 1+ few TARGET CELLS (BEAKER) (test efqt=177) 1+ few [id number] 08:11:00 Test Item Value Reference Range Comments PHOSPHORUS (BEAKER) (test zmnd=982) 4.3 mg/dL 2.3-4.7 [id number] 08:11:00 Test Item Value Reference Range Comments MAGNESIUM (BEAKER) (test ffou=895) 1.3 mg/dL 1.6-2.6 BASIC METABOLIC [id number] 08:11:00 Test Item Value Reference Range Comments SODIUM (BEAKER) (test 140 meq/L 136-145 zout=403) POTASSIUM (BEAKER) (test 3.4 meq/L 3.5-5.1 wncq=770) CHLORIDE (BEAKER) (test 103 meq/L 98-107 izbi=721) CO2 (BEAKER) (test 27 meq/L 22-29 vnuo=258) BLOOD UREA NITROGEN 15 mg/dL 7-21 (BEAKER) (test guhk=101) CREATININE (BEAKER) (test 1.10 mg/dL 0.57-1.25 wlat=391) GLUCOSE RANDOM (BEAKER) 91 mg/dL 70-105 (test nrzg=957) CALCIUM (BEAKER) (test 8.5 mg/dL 8.4-10.2 rxxf=327) EGFR (BEAKER) (test 67 mL/min/1.73 sq m ESTIMATED GFR IS NOT sfnb=2159) ACCURATE CREATININE CLEARANCE IN PREDICTING GLOMERULAR FILTRATION RATE. ESTIMATED GFR IS NOT APPLICABLE FOR DIALYSIS PATIENTS. CALCIUM, [id number] 07:19:00 Test Item Value Reference Range Comments CALCIUM IONIZED (BEAKER) (test nqmz=933) 0.98 mmol/L 1.12-1.27 PH, BLOOD (BEAKER) (test ivzk=5202) 7.39 BLOOD [id number] 00:00:00 Test Item Value Reference Range Comments CULTURE (BEAKER) (test ilzc=9614) No growth in 5 days CBC W/PLT COUNT & AUTO [id number] 13:18:00 Test Item Value Reference Range Comments WHITE BLOOD CELL COUNT (BEAKER) (test ohvb=640) 20.7 K/ L 3.5-10.5 RED BLOOD CELL COUNT (BEAKER) (test ysmd=528) 2.12 M/ L 3.93-5.22 HEMOGLOBIN (BEAKER) (test fpba=624) 6.7 GM/DL 11.2-15.7 HEMATOCRIT (BEAKER) (test ukbw=883) 20.4 % 34.1-44.9 MEAN CORPUSCULAR VOLUME (BEAKER) (test pivb=653) 96.2 fL 79.4-94.8 MEAN CORPUSCULAR HEMOGLOBIN (BEAKER) (test 31.6 pg 25.6-32.2 zypr=773) MEAN CORPUSCULAR HEMOGLOBIN CONC (BEAKER) (test 32.8 GM/DL 32.2-35.5 hois=427) RED CELL DISTRIBUTION WIDTH (BEAKER) (test 25.9 % 11.7-14.4 yces=467) PLATELET COUNT (BEAKER) (test bjfi=849) 262 K/CU MM 150-450 MEAN PLATELET VOLUME (BEAKER) (test pzgl=235) 11.2 fL 9.4-12.3 NUCLEATED RED BLOOD CELLS (BEAKER) (test 40 /100 WBC 0-0 qiab=426) NEUTROPHILS RELATIVE PERCENT (BEAKER) (test 76 % ndbl=901) LYMPHOCYTES RELATIVE PERCENT (BEAKER) (test 16 % nlnr=660) MONOCYTES RELATIVE PERCENT (BEAKER) (test 8 % zuek=171) EOSINOPHILS RELATIVE PERCENT (BEAKER) (test 0 % qyix=322) BASOPHILS RELATIVE PERCENT (BEAKER) (test 0 % mmvc=574) NEUTROPHILS ABSOLUTE COUNT (BEAKER) (test 15.60 K/ L 1.56-6.13 aplo=679) LYMPHOCYTES ABSOLUTE COUNT (BEAKER) (test 3.23 K/ L 1.18-3.74 wejt=571) MONOCYTES ABSOLUTE COUNT (BEAKER) (test 1.54 K/ L 0.24-0.36 boqa=523) EOSINOPHILS ABSOLUTE COUNT (BEAKER) (test 0.02 K/ L 0.04-0.36 zlte=931) BASOPHILS ABSOLUTE COUNT (BEAKER) (test 0.05 K/ L 0.01-0.08 pyrw=727) IMMATURE GRANULOCYTES-RELATIVE PERCENT (BEAKER) 1 % 0-1 (test qpzu=7276) (MANUAL DIFFERENTIAL)2017-11-11 13:18:00 Test Item Value Reference Range Comments TOTAL COUNTED (BEAKER) (test mpqc=2946) WBC MORPHOLOGY (BEAKER) (test kfss=252) Normal LARGE PLT(BEAKER) (test lmcf=7181) Present POLYCHROMATOPHILLIC RBCS(BEAKER) (test kycf=070) 1+ few SICKLE CELLS (BEAKER) (test ggde=961) 1+ few TARGET CELLS (BEAKER) (test syav=532) 1+ few [id number] 08:05:00 Test Item Value Reference Range Comments PHOSPHORUS (BEAKER) (test jsxl=757) 5.0 mg/dL 2.3-4.7 [id number] 08:05:00 Test Item Value Reference Range Comments MAGNESIUM (BEAKER) (test npcl=274) 1.6 mg/dL 1.6-2.6 BASIC METABOLIC [id number] 08:05:00 Test Item Value Reference Range Comments SODIUM (BEAKER) (test 140 meq/L 136-145 zdnv=231) POTASSIUM (BEAKER) (test 3.7 meq/L 3.5-5.1 hlar=235) CHLORIDE (BEAKER) (test 107 meq/L 98-107 royo=692) CO2 (BEAKER) (test 24 meq/L 22-29 dbar=089) BLOOD UREA NITROGEN 19 mg/dL 7-21 (BEAKER) (test ipnr=668) CREATININE (BEAKER) (test 1.23 mg/dL 0.57-1.25 rlna=307) GLUCOSE RANDOM (BEAKER) 96 mg/dL 70-105 (test otio=043) CALCIUM (BEAKER) (test 8.5 mg/dL 8.4-10.2 jtzo=804) EGFR (BEAKER) (test 59 mL/min/1.73 sq m ESTIMATED GFR IS NOT lrhb=2494) ACCURATE CREATININE CLEARANCE IN PREDICTING GLOMERULAR FILTRATION RATE. ESTIMATED GFR IS NOT APPLICABLE FOR DIALYSIS PATIENTS. CALCIUM, [id number] 06:38:00 Test Item Value Reference Range Comments CALCIUM IONIZED (BEAKER) (test iyih=999) 1.07 mmol/L 1.12-1.27 PH, BLOOD (BEAKER) (test xjor=4748) 7.31 CBC W/PLT COUNT & AUTO [id number] 14:53:00 Test Item Value Reference Range Comments WHITE BLOOD CELL COUNT (BEAKER) (test yjwz=575) 21.8 K/ L 3.5-10.5 RED BLOOD CELL COUNT (BEAKER) (test hoxy=259) 2.17 M/ L 3.93-5.22 HEMOGLOBIN (BEAKER) (test mkox=665) 6.8 GM/DL 11.2-15.7 HEMATOCRIT (BEAKER) (test mvdq=424) 21.3 % 34.1-44.9 MEAN CORPUSCULAR VOLUME (BEAKER) (test iiqo=775) 98.2 fL 79.4-94.8 MEAN CORPUSCULAR HEMOGLOBIN (BEAKER) (test 31.3 pg 25.6-32.2 lpwe=433) MEAN CORPUSCULAR HEMOGLOBIN CONC (BEAKER) (test 31.9 GM/DL 32.2-35.5 qpdu=803) RED CELL DISTRIBUTION WIDTH (BEAKER) (test 27.6 % 11.7-14.4 gpov=232) PLATELET COUNT (BEAKER) (test zcyz=799) 244 K/CU MM 150-450 MEAN PLATELET VOLUME (BEAKER) (test gnqx=635) 11.4 fL 9.4-12.3 NUCLEATED RED BLOOD CELLS (BEAKER) (test 80 /100 WBC 0-0 ddaw=285) NEUTROPHILS RELATIVE PERCENT (BEAKER) (test 82 % dpdo=417) LYMPHOCYTES RELATIVE PERCENT (BEAKER) (test 7 % upai=029) MONOCYTES RELATIVE PERCENT (BEAKER) (test 10 % tigm=033) EOSINOPHILS RELATIVE PERCENT (BEAKER) (test 0 % ykzf=706) BASOPHILS RELATIVE PERCENT (BEAKER) (test 0 % spsp=957) NEUTROPHILS ABSOLUTE COUNT (BEAKER) (test 17.85 K/ L 1.56-6.13 rewb=643) LYMPHOCYTES ABSOLUTE COUNT (BEAKER) (test 1.60 K/ L 1.18-3.74 rfmg=070) MONOCYTES ABSOLUTE COUNT (BEAKER) (test 2.14 K/ L 0.24-0.36 rapu=087) EOSINOPHILS ABSOLUTE COUNT (BEAKER) (test 0.03 K/ L 0.04-0.36 bdln=111) BASOPHILS ABSOLUTE COUNT (BEAKER) (test 0.03 K/ L 0.01-0.08 bvhg=527) IMMATURE GRANULOCYTES-RELATIVE PERCENT (BEAKER) 1 % 0-1 (test temj=5803) (MANUAL DIFFERENTIAL)2017-11-10 14:53:00 Test Item Value Reference Range Comments TOTAL COUNTED (BEAKER) (test zgfq=9365) WBC MORPHOLOGY (BEAKER) (test nlcf=334) Normal LARGE PLT(BEAKER) (test mlxs=4764) Present SCHISTOCYTES (BEAKER) (test txgk=953) 1+ few ACANTHOCYTES (BEAKER) (test xwvt=735) 1+ few ANISOCYTOSIS (BEAKER) (test edwr=153) 2+ moderate HYPOCHROMIA (BEAKER) (test uofq=639) 2+ moderate MACROCYTES (BEAKER) (test ihtb=003) 3+ many MICROCYTES (BEAKER) (test mmsy=222) 2+ moderate OVALOCYTES (BEAKER) (test ptdt=435) 1+ few POIKILOCYTES (BEAKER) (test gipo=617) 3+ many POLYCHROMATOPHILLIC RBCS(BEAKER) (test ivlc=724) 2+ moderate SICKLE CELLS (BEAKER) (test pojd=132) 2+ moderate TARGET CELLS (BEAKER) (test plry=848) 1+ few BASIC METABOLIC [id number] 08:54:00 Test Item Value Reference Range Comments SODIUM (BEAKER) (test 140 meq/L 136-145 ymph=884) POTASSIUM (BEAKER) (test 4.0 meq/L 3.5-5.1 ltnr=502) CHLORIDE (BEAKER) (test 109 meq/L 98-107 cxfl=970) CO2 (BEAKER) (test 19 meq/L 22-29 zeez=934) BLOOD UREA NITROGEN 21 mg/dL 7-21 (BEAKER) (test mogb=410) CREATININE (BEAKER) (test 1.27 mg/dL 0.57-1.25 qwrc=368) GLUCOSE RANDOM (BEAKER) 122 mg/dL 70-105 (test kyxf=924) CALCIUM (BEAKER) (test 8.6 mg/dL 8.4-10.2 cjkp=712) EGFR (BEAKER) (test 57 mL/min/1.73 sq m ESTIMATED GFR IS NOT ircs=7998) ACCURATE CREATININE CLEARANCE IN PREDICTING GLOMERULAR FILTRATION RATE. ESTIMATED GFR IS NOT APPLICABLE FOR DIALYSIS PATIENTS. [id number] 08:54:00 Test Item Value Reference Range Comments MAGNESIUM (BEAKER) (test ylnz=118) 1.5 mg/dL 1.6-2.6 [id number] 08:54:00 Test Item Value Reference Range Comments PHOSPHORUS (BEAKER) (test irqa=193) 4.5 mg/dL 2.3-4.7 COMPREHENSIVE METABOLIC [id number] 08:54:00 Test Item Value Reference Range Comments TOTAL PROTEIN (BEAKER) 8.2 gm/dL 6.0-8.3 (test lzqn=256) ALBUMIN (BEAKER) (test 3.1 g/dL 3.5-5.0 hjpr=2036) ALKALINE PHOSPHATASE 154 U/L 40-150 (BEAKER) (test eznl=061) BILIRUBIN TOTAL (BEAKER) 1.4 mg/dL 0.2-1.2 (test tcil=303) SODIUM (BEAKER) (test 140 meq/L 136-145 xqps=153) POTASSIUM (BEAKER) (test 4.0 meq/L 3.5-5.1 vuqz=146) CHLORIDE (BEAKER) (test 109 meq/L 98-107 fesj=009) CO2 (BEAKER) (test 19 meq/L 22-29 psqm=512) BLOOD UREA NITROGEN 21 mg/dL 7-21 (BEAKER) (test pyrl=528) CREATININE (BEAKER) (test 1.27 mg/dL 0.57-1.25 wjpo=482) GLUCOSE RANDOM (BEAKER) 122 mg/dL 70-105 (test kpxz=481) CALCIUM (BEAKER) (test 8.6 mg/dL 8.4-10.2 lytu=962) AST (SGOT) (BEAKER) (test 72 U/L 5-34 myoc=007) ALT (SGPT) (BEAKER) (test 50 U/L 6-55 thdx=770) EGFR (BEAKER) (test 57 mL/min/1.73 sq m ESTIMATED GFR IS NOT svnz=3842) ACCURATE CREATININE CLEARANCE IN PREDICTING GLOMERULAR FILTRATION RATE. ESTIMATED GFR IS NOT APPLICABLE FOR DIALYSIS PATIENTS. CALCIUM, [id number] 07:21:00 Test Item Value Reference Range Comments CALCIUM IONIZED (BEAKER) (test cued=755) 1.04 mmol/L 1.12-1.27 PH, BLOOD (BEAKER) (test azic=2827) 7.39 CBC W/PLT COUNT & AUTO [id number] 12:10:00 Test Item Value Reference Range Comments WHITE BLOOD CELL COUNT (BEAKER) (test jyaj=701) 20.8 K/ L 3.5-10.5 RED BLOOD CELL COUNT (BEAKER) (test pxag=117) 2.11 M/ L 3.93-5.22 HEMOGLOBIN (BEAKER) (test ycic=573) 6.6 GM/DL 11.2-15.7 HEMATOCRIT (BEAKER) (test hesp=342) 20.4 % 34.1-44.9 MEAN CORPUSCULAR VOLUME (BEAKER) (test fkby=196) 96.7 fL 79.4-94.8 MEAN CORPUSCULAR HEMOGLOBIN (BEAKER) (test 31.3 pg 25.6-32.2 befa=834) MEAN CORPUSCULAR HEMOGLOBIN CONC (BEAKER) (test 32.4 GM/DL 32.2-35.5 mtyw=658) RED CELL DISTRIBUTION WIDTH (BEAKER) (test 27.2 % 11.7-14.4 sqou=039) PLATELET COUNT (BEAKER) (test rvei=877) 237 K/CU MM 150-450 MEAN PLATELET VOLUME (BEAKER) (test bwiy=965) 10.7 fL 9.4-12.3 NUCLEATED RED BLOOD CELLS (BEAKER) (test 98 /100 WBC 0-0 hgxq=893) NEUTROPHILS RELATIVE PERCENT (BEAKER) (test 82 % ifjw=809) LYMPHOCYTES RELATIVE PERCENT (BEAKER) (test 6 % nxjp=078) MONOCYTES RELATIVE PERCENT (BEAKER) (test 11 % wljp=738) EOSINOPHILS RELATIVE PERCENT (BEAKER) (test 0 % mmbm=480) BASOPHILS RELATIVE PERCENT (BEAKER) (test 0 % xpsg=973) NEUTROPHILS ABSOLUTE COUNT (BEAKER) (test 16.91 K/ L 1.56-6.13 fdjm=591) LYMPHOCYTES ABSOLUTE COUNT (BEAKER) (test 1.31 K/ L 1.18-3.74 wyrl=471) MONOCYTES ABSOLUTE COUNT (BEAKER) (test 2.37 K/ L 0.24-0.36 wgda=278) EOSINOPHILS ABSOLUTE COUNT (BEAKER) (test 0.01 K/ L 0.04-0.36 eyyy=616) BASOPHILS ABSOLUTE COUNT (BEAKER) (test 0.05 K/ L 0.01-0.08 usgl=533) IMMATURE GRANULOCYTES-RELATIVE PERCENT (BEAKER) 1 % 0-1 (test fimj=5002) (MANUAL DIFFERENTIAL)2017-11-09 12:10:00 Test Item Value Reference Range Comments TOTAL COUNTED (BEAKER) (test jgnk=5767) WBC MORPHOLOGY (BEAKER) (test otar=000) Normal PLT MORPHOLOGY (BEAKER) (test temp=655) Normal ANISOCYTOSIS (BEAKER) (test mcuu=359) 2+ moderate MATTHEWS-JOLLY BODIES (BEAKER) (test ywpn=477) 1+ few POIKILOCYTES (BEAKER) (test tcox=921) 2+ moderate POLYCHROMATOPHILLIC RBCS(BEAKER) (test azuk=992) 1+ few SICKLE CELLS (BEAKER) (test jpuz=447) 2+ moderate TARGET CELLS (BEAKER) (test qupz=612) 1+ few CALCIUM, [id number] 07:44:00 Test Item Value Reference Range Comments CALCIUM IONIZED (BEAKER) (test cyqo=015) 1.16 mmol/L 1.12-1.27 PH, BLOOD (BEAKER) (test hucw=5940) 7.25 B-TYPE NATRIURETIC FACTOR (BNP)2017-11-09 07:43:00 Test Item Value Reference Range Comments B-TYPE NATRIURETIC PEPTIDE (BEAKER) (test 903 pg/mL 0-100 ytdx=602) [id number] 07:27:00 Test Item Value Reference Range Comments PHOSPHORUS (BEAKER) (test iyon=577) 4.4 mg/dL 2.3-4.7 [id number] 07:27:00 Test Item Value Reference Range Comments MAGNESIUM (BEAKER) (test qytl=661) 1.7 mg/dL 1.6-2.6 COMPREHENSIVE METABOLIC [id number] 07:27:00 Test Item Value Reference Range Comments TOTAL PROTEIN (BEAKER) 7.8 gm/dL 6.0-8.3 (test xqtt=823) ALBUMIN (BEAKER) (test 3.2 g/dL 3.5-5.0 tzsb=0900) ALKALINE PHOSPHATASE 165 U/L 40-150 (BEAKER) (test eskf=053) BILIRUBIN TOTAL (BEAKER) 1.3 mg/dL 0.2-1.2 (test tkxo=738) SODIUM (BEAKER) (test 143 meq/L 136-145 hzsw=452) POTASSIUM (BEAKER) (test 4.2 meq/L 3.5-5.1 nvdr=330) CHLORIDE (BEAKER) (test 112 meq/L 98-107 kzdh=873) CO2 (BEAKER) (test 23 meq/L 22-29 ehwg=832) BLOOD UREA NITROGEN 29 mg/dL 7-21 (BEAKER) (test rlza=142) CREATININE (BEAKER) (test 1.54 mg/dL 0.57-1.25 sooq=256) GLUCOSE RANDOM (BEAKER) 108 mg/dL 70-105 (test qjpt=086) CALCIUM (BEAKER) (test 9.1 mg/dL 8.4-10.2 ytmy=109) AST (SGOT) (BEAKER) (test 110 U/L 5-34 tgxs=704) ALT (SGPT) (BEAKER) (test 64 U/L 6-55 xfgv=805) EGFR (BEAKER) (test 46 mL/min/1.73 sq m ESTIMATED GFR IS NOT xluv=8340) ACCURATE CREATININE CLEARANCE IN PREDICTING GLOMERULAR FILTRATION RATE. ESTIMATED GFR IS NOT APPLICABLE FOR DIALYSIS PATIENTS. BASIC METABOLIC [id number] 07:27:00 Test Item Value Reference Range Comments SODIUM (BEAKER) (test 143 meq/L 136-145 iozb=927) POTASSIUM (BEAKER) (test 4.2 meq/L 3.5-5.1 ufbm=962) CHLORIDE (BEAKER) (test 112 meq/L 98-107 ehme=334) CO2 (BEAKER) (test 23 meq/L 22-29 rxnc=878) BLOOD UREA NITROGEN 29 mg/dL 7-21 (BEAKER) (test inpy=738) CREATININE (BEAKER) (test 1.54 mg/dL 0.57-1.25 mpoz=836) GLUCOSE RANDOM (BEAKER) 108 mg/dL 70-105 (test vjbm=282) CALCIUM (BEAKER) (test 9.1 mg/dL 8.4-10.2 ijaf=419) EGFR (BEAKER) (test 46 mL/min/1.73 sq m ESTIMATED GFR IS NOT skbp=5136) ACCURATE CREATININE CLEARANCE IN PREDICTING GLOMERULAR FILTRATION RATE. ESTIMATED GFR IS NOT APPLICABLE FOR DIALYSIS PATIENTS. RAD, CHEST, 1 VIEW, NON [id number] 20:41:00Reason for exam:->edemaShould this be performed at [...] MDReport Verified Date/Time: 11/08/2017 20:41:24 Reading Location: [address] Reading Room Electronically signed by: CLIFF SALCIDO M.D. on 08:41 PMEOSINOPHIL SMEAR, [id number] 12:49:00 Test Item Value Reference Range Comments EOSINOPHIL SMEAR, URINE (BEAKER) (test No EOS seen No EOS seen mdly=2901) CBC W/PLT COUNT & AUTO [id number] 10:40:00 Test Item Value Reference Range Comments WHITE BLOOD CELL COUNT (BEAKER) (test ucym=538) 18.6 K/ L 3.5-10.5 RED BLOOD CELL COUNT (BEAKER) (test ltxm=268) 2.21 M/ L 3.93-5.22 HEMOGLOBIN (BEAKER) (test fqjx=156) 6.8 GM/DL 11.2-15.7 HEMATOCRIT (BEAKER) (test tppj=129) 20.6 % 34.1-44.9 MEAN CORPUSCULAR VOLUME (BEAKER) (test yiaq=550) 93.2 fL 79.4-94.8 MEAN CORPUSCULAR HEMOGLOBIN (BEAKER) (test 30.8 pg 25.6-32.2 sbtk=732) MEAN CORPUSCULAR HEMOGLOBIN CONC (BEAKER) (test 33.0 GM/DL 32.2-35.5 gfju=571) RED CELL DISTRIBUTION WIDTH (BEAKER) (test 25.5 % 11.7-14.4 qzub=481) PLATELET COUNT (BEAKER) (test jydn=738) 255 K/CU MM 150-450 MEAN PLATELET VOLUME (BEAKER) (test plkj=056) 10.6 fL 9.4-12.3 NUCLEATED RED BLOOD CELLS (BEAKER) (test 87 /100 WBC 0-0 dqli=388) NEUTROPHILS RELATIVE PERCENT (BEAKER) (test 70 % nzww=125) LYMPHOCYTES RELATIVE PERCENT (BEAKER) (test 14 % rloa=750) MONOCYTES RELATIVE PERCENT (BEAKER) (test 14 % pnds=778) EOSINOPHILS RELATIVE PERCENT (BEAKER) (test 0 % jbuo=804) BASOPHILS RELATIVE PERCENT (BEAKER) (test 0 % vcse=495) NEUTROPHILS ABSOLUTE COUNT (BEAKER) (test 12.98 K/ L 1.56-6.13 lbks=369) LYMPHOCYTES ABSOLUTE COUNT (BEAKER) (test 2.67 K/ L 1.18-3.74 efqp=311) MONOCYTES ABSOLUTE COUNT (BEAKER) (test 2.65 K/ L 0.24-0.36 pcqm=055) EOSINOPHILS ABSOLUTE COUNT (BEAKER) (test 0.07 K/ L 0.04-0.36 jcqx=015) BASOPHILS ABSOLUTE COUNT (BEAKER) (test 0.05 K/ L 0.01-0.08 xzjd=900) IMMATURE GRANULOCYTES-RELATIVE PERCENT (BEAKER) 1 % 0-1 (test mlcu=1312) (MANUAL DIFFERENTIAL)2017-11-08 10:40:00 Test Item Value Reference Range Comments TOTAL COUNTED (BEAKER) (test qffi=2435) WBC MORPHOLOGY (BEAKER) (test bqep=374) Normal LARGE PLT(BEAKER) (test totm=0815) Present POLYCHROMATOPHILLIC RBCS(BEAKER) (test msjz=566) 2+ moderate SICKLE CELLS (BEAKER) (test iptf=091) 3+ many TARGET CELLS (BEAKER) (test tvte=899) 1+ few CT, [id number] 08:29:00FINAL REPORT HISTORY : Abdominal pain, unspecified [...] MDReport Verified Date/Time: 11/08/2017 08:29:54 Reading Location: [facility] Reading Room - [place] [id number] Electronically signed by: DAMI QUICK M.D. on11/08/2017 08:29 AMBASIC METABOLIC [id number] 08:14:00 Test Item Value Reference Range Comments SODIUM (BEAKER) (test 141 meq/L 136-145 rxel=355) POTASSIUM (BEAKER) (test 4.4 meq/L 3.5-5.1 ttst=045) CHLORIDE (BEAKER) (test 111 meq/L 98-107 ywjf=419) CO2 (BEAKER) (test 17 meq/L 22-29 tdcr=441) BLOOD UREA NITROGEN 37 mg/dL 7-21 (BEAKER) (test rvjz=373) CREATININE (BEAKER) (test 2.07 mg/dL 0.57-1.25 hucs=111) GLUCOSE RANDOM (BEAKER) 101 mg/dL 70-105 (test ojen=587) CALCIUM (BEAKER) (test 8.9 mg/dL 8.4-10.2 jzac=120) EGFR (BEAKER) (test 32 mL/min/1.73 sq m ESTIMATED GFR IS NOT dwdo=1289) ACCURATE CREATININE CLEARANCE IN PREDICTING GLOMERULAR FILTRATION RATE. ESTIMATED GFR IS NOT APPLICABLE FOR DIALYSIS PATIENTS. COMPREHENSIVE METABOLIC [id number] 08:14:00 Test Item Value Reference Range Comments TOTAL PROTEIN (BEAKER) 8.6 gm/dL 6.0-8.3 (test cqen=269) ALBUMIN (BEAKER) (test 3.4 g/dL 3.5-5.0 efar=4183) ALKALINE PHOSPHATASE 155 U/L 40-150 (BEAKER) (test pwew=016) BILIRUBIN TOTAL (BEAKER) 1.7 mg/dL 0.2-1.2 (test ijhp=083) SODIUM (BEAKER) (test 141 meq/L 136-145 iufb=063) POTASSIUM (BEAKER) (test 4.4 meq/L 3.5-5.1 wypj=870) CHLORIDE (BEAKER) (test 111 meq/L 98-107 rqpd=293) CO2 (BEAKER) (test 17 meq/L 22-29 xkax=780) BLOOD UREA NITROGEN 37 mg/dL 7-21 (BEAKER) (test nstr=696) CREATININE (BEAKER) (test 2.07 mg/dL 0.57-1.25 elai=580) GLUCOSE RANDOM (BEAKER) 101 mg/dL 70-105 (test fxwu=985) CALCIUM (BEAKER) (test 8.9 mg/dL 8.4-10.2 mxuh=381) AST (SGOT) (BEAKER) (test 144 U/L 5-34 vmgs=896) ALT (SGPT) (BEAKER) (test 70 U/L 6-55 gjox=609) EGFR (BEAKER) (test 32 mL/min/1.73 sq m ESTIMATED GFR IS NOT kaou=3065) ACCURATE CREATININE CLEARANCE IN PREDICTING GLOMERULAR FILTRATION RATE. ESTIMATED GFR IS NOT APPLICABLE FOR DIALYSIS PATIENTS. PROTEIN, RANDOM [id number] 07:49:00 Test Item Value Reference Range Comments PROTEIN, URINE (BEAKER) (test kkow=9540) 24 mg/dL 0-14 CREATININE, RANDOM [id number] 07:47:00 Test Item Value Reference Range Comments CREATININE URINE (BEAKER) (test kqrr=062) 46.0 mg/dL Reference Range: No NormalsSODIUM, RANDOM [id number] 07:47:00 Test Item Value Reference Range Comments SODIUM URINE (BEAKER) (test tnrf=152) 65 meq/L Reference Range: No NormalsU/S, ABDOMINAL, [id number] 19:58:00Reason for exam:->GRAYSON, abdominal painShould this be [...] [place] Verified Date/Time: 11/07/2017 19:58:17 Reading Location: [address] Consult Reading Room LACTIC ACID, VENOUS, WHOLE [id number] 16:11:00 Test Item Value Reference Range Comments LACTATE BLOOD VENOUS (2) 0.9 mmol/L 0.5-2.2 Specimen slightly hemolyzed (BEAKER) (test azwp=3660) Effective 12/22/2015: Units/Reference Range ChangeNew: 0.5-2.2 mmol/L Previous: 5 -20 mg/dLCBC W/PLT COUNT & AUTO [id number] 10:20:00 Test Item Value Reference Range Comments WHITE BLOOD CELL COUNT (BEAKER) (test tfzv=283) 23.2 K/ L 3.5-10.5 RED BLOOD CELL COUNT (BEAKER) (test avfo=483) 1.84 M/ L 3.93-5.22 HEMOGLOBIN (BEAKER) (test wjsv=757) 5.8 GM/DL 11.2-15.7 HEMATOCRIT (BEAKER) (test cjoh=367) 17.3 % 34.1-44.9 MEAN CORPUSCULAR VOLUME (BEAKER) (test crfl=425) 94.0 fL 79.4-94.8 MEAN CORPUSCULAR HEMOGLOBIN (BEAKER) (test 31.5 pg 25.6-32.2 vbdu=567) MEAN CORPUSCULAR HEMOGLOBIN CONC (BEAKER) (test 33.5 GM/DL 32.2-35.5 aztb=391) RED CELL DISTRIBUTION WIDTH (BEAKER) (test 24.1 % 11.7-14.4 exeo=087) PLATELET COUNT (BEAKER) (test gdvu=047) 249 K/CU MM 150-450 MEAN PLATELET VOLUME (BEAKER) (test rgcn=054) 10.8 fL 9.4-12.3 NUCLEATED RED BLOOD CELLS (BEAKER) (test 48 /100 WBC 0-0 dbok=624) IMMATURE GRANULOCYTES-RELATIVE PERCENT (BEAKER) 2 % 0-1 (test ubui=4432) (MANUAL DIFFERENTIAL)2017-11-07 10:20:00 Test Item Value Reference Range Comments NEUTROPHILS - REL (DIFF) (BEAKER) (test 68 % mwnw=7019) LYMPHOCYTES - REL (DIFF) (BEAKER) (test 27 % hwpa=4664) MONOCYTES - REL (DIFF) (BEAKER) (test tbil=8404) 5 % EOSINOPHILS - REL (DIFF) (BEAKER) (test 0 % xaeq=8663) BASOPHILS - REL (DIFF) (BEAKER) (test ohzw=8454) 0 % NEUTROPHILS - ABS (DIFF) (BEAKER) (test 15.78 K/ L 1.80-8.00 bpoe=5142) LYMPHOCYTES - ABS (DIFF) (BEAKER) (test 6.26 K/ L 1.48-4.50 inon=0567) MONOCYTES - ABS (DIFF) (BEAKER) (test jbry=7078) 1.16 K/ L 0.00-1.30 EOSINOPHILS - ABS (DIFF) (BEAKER) (test 0.00 K/ L 0.00-0.50 nbar=0514) BASOPHILS - ABS (DIFF) (BEAKER) (test emrq=4576) 0.00 K/ L 0.00-0.20 TOTAL COUNTED (BEAKER) (test kztw=0620) 100 MANUAL NRBC PER 100 CELLS (BEAKER) (test 51 /100 WBC 0-0 xikn=5061) WBC MORPHOLOGY (BEAKER) (test lcrs=687) Normal PLT MORPHOLOGY (BEAKER) (test tfoi=818) Normal ANISOCYTOSIS (BEAKER) (test qjvc=972) 3+ many POLYCHROMATOPHILLIC RBCS(BEAKER) (test oees=954) 2+ moderate SICKLE CELLS (BEAKER) (test zvfp=032) 3+ many TARGET CELLS (BEAKER) (test vzlh=156) 1+ few BASIC METABOLIC [id number] 06:28:00 Test Item Value Reference Range Comments SODIUM (BEAKER) (test 132 meq/L 136-145 clvd=739) POTASSIUM (BEAKER) (test 4.4 meq/L 3.5-5.1 rohy=502) CHLORIDE (BEAKER) (test 109 meq/L 98-107 ltrk=063) CO2 (BEAKER) (test 20 meq/L 22-29 cxih=553) BLOOD UREA NITROGEN 39 mg/dL 7-21 (BEAKER) (test icka=498) CREATININE (BEAKER) (test 2.20 mg/dL 0.57-1.25 voci=245) GLUCOSE RANDOM (BEAKER) 123 mg/dL 70-105 (test gtov=811) CALCIUM (BEAKER) (test 8.7 mg/dL 8.4-10.2 jrvo=591) EGFR (BEAKER) (test 30 mL/min/1.73 sq m ESTIMATED GFR IS NOT hyyx=7249) ACCURATE CREATININE CLEARANCE IN PREDICTING GLOMERULAR FILTRATION RATE. ESTIMATED GFR IS NOT APPLICABLE FOR DIALYSIS PATIENTS. COMPREHENSIVE METABOLIC [id number] 18:37:00 Test Item Value Reference Range Comments TOTAL PROTEIN (BEAKER) 8.5 gm/dL 6.0-8.3 (test fwop=694) ALBUMIN (BEAKER) (test 3.4 g/dL 3.5-5.0 uoji=6702) ALKALINE PHOSPHATASE 166 U/L 40-150 (BEAKER) (test bonc=931) BILIRUBIN TOTAL (BEAKER) 4.0 mg/dL 0.2-1.2 (test dscr=685) SODIUM (BEAKER) (test 142 meq/L 136-145 rpdf=627) POTASSIUM (BEAKER) (test 4.7 meq/L 3.5-5.1 yyrg=874) CHLORIDE (BEAKER) (test 110 meq/L 98-107 udne=719) CO2 (BEAKER) (test 22 meq/L 22-29 orhr=804) BLOOD UREA NITROGEN 35 mg/dL 7-21 (BEAKER) (test iglh=780) CREATININE (BEAKER) (test 1.97 mg/dL 0.57-1.25 sftp=522) GLUCOSE RANDOM (BEAKER) 119 mg/dL 70-105 (test ztvz=413) CALCIUM (BEAKER) (test 8.5 mg/dL 8.4-10.2 ebwf=818) AST (SGOT) (BEAKER) (test 278 U/L 5-34 eiyp=538) ALT (SGPT) (BEAKER) (test 92 U/L 6-55 cbqt=026) EGFR (BEAKER) (test 34 mL/min/1.73 sq m ESTIMATED GFR IS NOT hrhx=7227) ACCURATE CREATININE CLEARANCE IN PREDICTING GLOMERULAR FILTRATION RATE. ESTIMATED GFR IS NOT APPLICABLE FOR DIALYSIS PATIENTS. Specimen slightly ictericCBC W/PLT COUNT & AUTO [id number] 14:59 :00 Test Item Value Reference Range Comments WHITE BLOOD CELL COUNT (BEAKER) (test fuzg=521) 24.3 K/ L 3.5-10.5 RED BLOOD CELL COUNT (BEAKER) (test pjtc=811) 1.73 M/ L 3.93-5.22 HEMOGLOBIN (BEAKER) (test xtyx=909) 5.5 GM/DL 11.2-15.7 HEMATOCRIT (BEAKER) (test pvkv=052) 16.7 % 34.1-44.9 MEAN CORPUSCULAR VOLUME (BEAKER) (test rhgb=993) 96.5 fL 79.4-94.8 MEAN CORPUSCULAR HEMOGLOBIN (BEAKER) (test 31.8 pg 25.6-32.2 tgtt=634) MEAN CORPUSCULAR HEMOGLOBIN CONC (BEAKER) (test 32.9 GM/DL 32.2-35.5 fvhx=172) RED CELL DISTRIBUTION WIDTH (BEAKER) (test 25.8 % 11.7-14.4 nkjp=788) PLATELET COUNT (BEAKER) (test hsmg=878) 259 K/CU MM 150-450 MEAN PLATELET VOLUME (BEAKER) (test gmdo=720) 11.1 fL 9.4-12.3 NUCLEATED RED BLOOD CELLS (BEAKER) (test 29 /100 WBC 0-0 jfpa=398) IMMATURE GRANULOCYTES-RELATIVE PERCENT (BEAKER) 2 % 0-1 (test cncr=9775) (MANUAL DIFFERENTIAL)2017-11-06 14:59:00 Test Item Value Reference Range Comments NEUTROPHILS - REL (DIFF) (BEAKER) (test 65 % pdmn=7327) LYMPHOCYTES - REL (DIFF) (BEAKER) (test 26 % dsbm=8864) MONOCYTES - REL (DIFF) (BEAKER) (test ujzs=6275) 8 % MYELOCYTES-REL (DIFF) (BEAKER) (test eucv=4118) 1 % 0-0 NEUTROPHILS - ABS (DIFF) (BEAKER) (test 15.80 K/ L 1.80-8.00 gvyz=2117) LYMPHOCYTES - ABS (DIFF) (BEAKER) (test 6.32 K/ L 1.48-4.50 uzsy=8493) MONOCYTES - ABS (DIFF) (BEAKER) (test tuul=4610) 1.94 K/ L 0.00-1.30 MYELOCYTES-ABS (DIFF) (BEAKER) (test vefb=6396) 0.24 K/ L 0.00-0.00 TOTAL COUNTED (BEAKER) (test otbz=5886) 100 MANUAL NRBC PER 100 CELLS (BEAKER) (test 34 /100 WBC 0-0 ydsy=5345) WBC MORPHOLOGY (BEAKER) (test sefk=116) Normal PLT MORPHOLOGY (BEAKER) (test sfhi=391) Normal ANISOCYTOSIS (BEAKER) (test fagb=617) 3+ many MATTHEWS-JOLLY BODIES (BEAKER) (test bcjc=402) Present POIKILOCYTES (BEAKER) (test pruz=739) 1+ few POLYCHROMATOPHILLIC RBCS(BEAKER) (test zuns=275) 2+ moderate SICKLE CELLS (BEAKER) (test mvsw=554) 3+ many BASIC METABOLIC [id number] 09:37:00 Test Item Value Reference Range Comments SODIUM (BEAKER) (test 139 meq/L 136-145 krus=041) POTASSIUM (BEAKER) (test 4.5 meq/L 3.5-5.1 wvwl=654) CHLORIDE (BEAKER) (test 107 meq/L 98-107 hklk=711) CO2 (BEAKER) (test 19 meq/L 22-29 erxn=473) BLOOD UREA NITROGEN 27 mg/dL 7-21 (BEAKER) (test pohn=602) CREATININE (BEAKER) (test 1.37 mg/dL 0.57-1.25 axfs=844) GLUCOSE RANDOM (BEAKER) 124 mg/dL 70-105 (test pmov=224) CALCIUM (BEAKER) (test 8.2 mg/dL 8.4-10.2 uypm=133) EGFR (BEAKER) (test 52 mL/min/1.73 sq m ESTIMATED GFR IS NOT jfpa=7015) ACCURATE CREATININE CLEARANCE IN PREDICTING GLOMERULAR FILTRATION RATE. ESTIMATED GFR IS NOT APPLICABLE FOR DIALYSIS PATIENTS. Specimen slightly ictericURINALYSIS W/ [id number] 06:22:00 Test Item Value Reference Range Comments COLOR (BEAKER) (test azfc=969) Brown CLARITY (BEAKER) (test htnx=688) Cloudy SPECIFIC GRAVITY UA (BEAKER) (test 1.015 1.001-1.035 jfzy=181) PH UA (BEAKER) (test wodd=017) 5.5 5.0-8.0 PROTEIN UA (BEAKER) (test smgh=446) 100 mg/dL Negative GLUCOSE UA (BEAKER) (test bkzo=162) Negative Negative KETONES UA (BEAKER) (test psbe=004) Negative Negative BILIRUBIN UA (BEAKER) (test piuj=065) Positive Negative BLOOD UA (BEAKER) (test yfua=562) Large Negative NITRITE UA (BEAKER) (test aoae=346) Negative Negative LEUKOCYTE ESTERASE UA (BEAKER) (test Trace Negative diny=043) UROBILINOGEN UA (BEAKER) (test whxm=800) 4.0 mg/dL 0.2-1.0 RBC UA (BEAKER) (test zyog=923) 0 /HPF WBC UA (BEAKER) (test qucv=623) 27 /HPF MUCUS (BEAKER) (test biik=0215) Few SQUAMOUS EPITHELIAL (BEAKER) (test 11 /HPF zvdf=016) SOURCE(BEAKER) (test gcvi=8338) Urine, Clean Catch BASIC METABOLIC [id number] 10:56:00 Test Item Value Reference Range Comments SODIUM (BEAKER) (test 139 meq/L 136-145 sbyy=959) POTASSIUM (BEAKER) (test 4.2 meq/L 3.5-5.1 osef=074) CHLORIDE (BEAKER) (test 104 meq/L 98-107 bpgc=593) CO2 (BEAKER) (test 23 meq/L 22-29 yviq=131) BLOOD UREA NITROGEN 9 mg/dL 7-21 (BEAKER) (test usgg=318) CREATININE (BEAKER) (test 0.66 mg/dL 0.57-1.25 xmrd=740) GLUCOSE RANDOM (BEAKER) 109 mg/dL 70-105 (test vinc=642) CALCIUM (BEAKER) (test 8.6 mg/dL 8.4-10.2 zrhq=149) EGFR (BEAKER) (test 121 mL/min/1.73 sq m ESTIMATED GFR IS NOT hdlu=7202) ACCURATE CREATININE CLEARANCE IN PREDICTING GLOMERULAR FILTRATION RATE. ESTIMATED GFR IS NOT APPLICABLE FOR DIALYSIS PATIENTS. Specimen slightly ictericCBC W/PLT COUNT & AUTO [id number] 09:17 :00 Test Item Value Reference Range Comments WHITE BLOOD CELL COUNT (BEAKER) (test covn=419) 18.2 K/ L 3.5-10.5 RED BLOOD CELL COUNT (BEAKER) (test fcrj=586) 2.05 M/ L 3.93-5.22 HEMOGLOBIN (BEAKER) (test hjgg=346) 6.4 GM/DL 11.2-15.7 HEMATOCRIT (BEAKER) (test zljs=362) 19.9 % 34.1-44.9 MEAN CORPUSCULAR VOLUME (BEAKER) (test pvdi=214) 97.1 fL 79.4-94.8 MEAN CORPUSCULAR HEMOGLOBIN (BEAKER) (test 31.2 pg 25.6-32.2 lnuf=221) MEAN CORPUSCULAR HEMOGLOBIN CONC (BEAKER) (test 32.2 GM/DL 32.2-35.5 zofe=347) RED CELL DISTRIBUTION WIDTH (BEAKER) (test 25.4 % 11.7-14.4 nzgn=802) PLATELET COUNT (BEAKER) (test rvea=915) 227 K/CU MM 150-450 MEAN PLATELET VOLUME (BEAKER) (test ziux=872) 10.4 fL 9.4-12.3 NUCLEATED RED BLOOD CELLS (BEAKER) (test 18 /100 WBC 0-0 zjgg=006) NEUTROPHILS RELATIVE PERCENT (BEAKER) (test 57 % xuyz=118) LYMPHOCYTES RELATIVE PERCENT (BEAKER) (test 24 % qrls=288) MONOCYTES RELATIVE PERCENT (BEAKER) (test 15 % hxsw=112) EOSINOPHILS RELATIVE PERCENT (BEAKER) (test 3 % wjlx=749) BASOPHILS RELATIVE PERCENT (BEAKER) (test 0 % wqrx=831) NEUTROPHILS ABSOLUTE COUNT (BEAKER) (test 10.46 K/ L 1.56-6.13 ykcu=036) LYMPHOCYTES ABSOLUTE COUNT (BEAKER) (test 4.31 K/ L 1.18-3.74 lzsi=721) MONOCYTES ABSOLUTE COUNT (BEAKER) (test 2.72 K/ L 0.24-0.36 idjz=155) EOSINOPHILS ABSOLUTE COUNT (BEAKER) (test 0.45 K/ L 0.04-0.36 hrfn=005) BASOPHILS ABSOLUTE COUNT (BEAKER) (test 0.07 K/ L 0.01-0.08 jzae=270) IMMATURE GRANULOCYTES-RELATIVE PERCENT (BEAKER) 1 % 0-1 (test ysdc=9786) (MANUAL DIFFERENTIAL)2017-11-05 09:17:00 Test Item Value Reference Range Comments TOTAL COUNTED (BEAKER) (test ookh=6330) WBC MORPHOLOGY (BEAKER) (test vwus=886) Normal PLT MORPHOLOGY (BEAKER) (test exid=430) Normal ANISOCYTOSIS (BEAKER) (test hdiy=985) 2+ moderate POLYCHROMATOPHILLIC RBCS(BEAKER) (test kzxq=348) 2+ moderate SICKLE CELLS (BEAKER) (test inym=444) 2+ moderate TARGET CELLS (BEAKER) (test fgxe=445) 2+ moderate CREATINE KINASE (CK), TOTAL AND [id number] 22:01:00 Test Item Value Reference Range Comments CREATINE KINASE TOTAL (BEAKER) (test 10 U/L 29-200 mouz=798) CREATINE KINASE-MB (BEAKER) (test 0.1 ng/mL 0.0-6.6 fgoh=603) CREATINE KINASE-MB INDEX (BEAKER) (test 1.0 % Unable to Calculate lefo=297) CK-MB Reference Range:<6.7 Normal6.7-10.0 Borderline>10.0 AbnormalTROPONIN [id number] 21:16:00 Test Item Value Reference Range Comments TROPONIN I (BEAKER) (test mgyb=814) < ng/mL 0.00-0.03 Troponin I (TnI) levels [...] and persistent tachyarrhythmia.CBC W/PLT COUNT & AUTO [id number] 06:49:00 Test Item Value Reference Range Comments WHITE BLOOD CELL COUNT (BEAKER) (test wkmr=102) 13.3 K/ L 3.5-10.5 RED BLOOD CELL COUNT (BEAKER) (test tujy=195) 2.18 M/ L 3.93-5.22 HEMOGLOBIN (BEAKER) (test guwe=073) 6.8 GM/DL 11.2-15.7 HEMATOCRIT (BEAKER) (test skld=423) 21.5 % 34.1-44.9 MEAN CORPUSCULAR VOLUME (BEAKER) (test hdhg=699) 98.6 fL 79.4-94.8 MEAN CORPUSCULAR HEMOGLOBIN (BEAKER) (test 31.2 pg 25.6-32.2 srdw=431) MEAN CORPUSCULAR HEMOGLOBIN CONC (BEAKER) (test 31.6 GM/DL 32.2-35.5 hhml=597) RED CELL DISTRIBUTION WIDTH (BEAKER) (test 21.1 % 11.7-14.4 jatq=597) PLATELET COUNT (BEAKER) (test maxk=422) 192 K/CU MM 150-450 MEAN PLATELET VOLUME (BEAKER) (test wkuu=527) 11.4 fL 9.4-12.3 NUCLEATED RED BLOOD CELLS (BEAKER) (test 1 /100 WBC 0-0 yefr=381) NEUTROPHILS RELATIVE PERCENT (BEAKER) (test 51 % lnfy=462) LYMPHOCYTES RELATIVE PERCENT (BEAKER) (test 30 % evng=649) MONOCYTES RELATIVE PERCENT (BEAKER) (test 16 % zndg=932) EOSINOPHILS RELATIVE PERCENT (BEAKER) (test 2 % mgrc=970) BASOPHILS RELATIVE PERCENT (BEAKER) (test 0 % hisb=874) NEUTROPHILS ABSOLUTE COUNT (BEAKER) (test 6.84 K/ L 1.56-6.13 revu=974) LYMPHOCYTES ABSOLUTE COUNT (BEAKER) (test 4.06 K/ L 1.18-3.74 bihj=358) MONOCYTES ABSOLUTE COUNT (BEAKER) (test 2.12 K/ L 0.24-0.36 auuh=443) EOSINOPHILS ABSOLUTE COUNT (BEAKER) (test 0.26 K/ L 0.04-0.36 audy=135) BASOPHILS ABSOLUTE COUNT (BEAKER) (test 0.02 K/ L 0.01-0.08 ezrv=433) IMMATURE GRANULOCYTES-RELATIVE PERCENT (BEAKER) 0 % 0-1 (test mklb=3323) BASIC METABOLIC [id number] 07:06:00 Test Item Value Reference Range Comments SODIUM (BEAKER) (test 138 meq/L 136-145 jdlw=147) POTASSIUM (BEAKER) (test 4.2 meq/L 3.5-5.1 wfke=251) CHLORIDE (BEAKER) (test 103 meq/L 98-107 ahyn=585) CO2 (BEAKER) (test 28 meq/L 22-29 xfao=444) BLOOD UREA NITROGEN 11 mg/dL 7-21 (BEAKER) (test pukp=272) CREATININE (BEAKER) (test 0.55 mg/dL 0.57-1.25 mzrh=704) GLUCOSE RANDOM (BEAKER) 95 mg/dL 70-105 (test coql=902) CALCIUM (BEAKER) (test 9.5 mg/dL 8.4-10.2 yscy=258) EGFR (BEAKER) (test 150 mL/min/1.73 sq m ESTIMATED GFR IS NOT atrf=9720) ACCURATE CREATININE CLEARANCE IN PREDICTING GLOMERULAR FILTRATION RATE. ESTIMATED GFR IS NOT APPLICABLE FOR DIALYSIS PATIENTS. CBC W/PLT COUNT & AUTO [id number] 06:48:00 Test Item Value Reference Range Comments WHITE BLOOD CELL COUNT (BEAKER) (test ytag=816) 12.8 K/ L 3.5-10.5 RED BLOOD CELL COUNT (BEAKER) (test aeud=269) 2.22 M/ L 3.93-5.22 HEMOGLOBIN (BEAKER) (test wfrk=022) 7.2 GM/DL 11.2-15.7 HEMATOCRIT (BEAKER) (test xwkq=495) 21.9 % 34.1-44.9 MEAN CORPUSCULAR VOLUME (BEAKER) (test lhfh=441) 98.6 fL 79.4-94.8 MEAN CORPUSCULAR HEMOGLOBIN (BEAKER) (test 32.4 pg 25.6-32.2 ocvk=904) MEAN CORPUSCULAR HEMOGLOBIN CONC (BEAKER) (test 32.9 GM/DL 32.2-35.5 lbwc=362) RED CELL DISTRIBUTION WIDTH (BEAKER) (test 21.2 % 11.7-14.4 jpyo=083) PLATELET COUNT (BEAKER) (test ostc=527) 176 K/CU MM 150-450 MEAN PLATELET VOLUME (BEAKER) (test fxoa=837) 11.2 fL 9.4-12.3 NUCLEATED RED BLOOD CELLS (BEAKER) (test 5 /100 WBC 0-0 lvug=620) NEUTROPHILS RELATIVE PERCENT (BEAKER) (test 49 % lfdb=656) LYMPHOCYTES RELATIVE PERCENT (BEAKER) (test 31 % boso=315) MONOCYTES RELATIVE PERCENT (BEAKER) (test 19 % bvgy=564) EOSINOPHILS RELATIVE PERCENT (BEAKER) (test 2 % zvqe=500) BASOPHILS RELATIVE PERCENT (BEAKER) (test 0 % dviv=586) NEUTROPHILS ABSOLUTE COUNT (BEAKER) (test 6.23 K/ L 1.56-6.13 yybz=583) LYMPHOCYTES ABSOLUTE COUNT (BEAKER) (test 3.90 K/ L 1.18-3.74 dnim=862) MONOCYTES ABSOLUTE COUNT (BEAKER) (test 2.37 K/ L 0.24-0.36 kfts=946) EOSINOPHILS ABSOLUTE COUNT (BEAKER) (test 0.24 K/ L 0.04-0.36 pgkb=891) BASOPHILS ABSOLUTE COUNT (BEAKER) (test 0.01 K/ L 0.01-0.08 cqli=386) IMMATURE GRANULOCYTES-RELATIVE PERCENT (BEAKER) 0 % 0-1 (test ingq=3428) (MANUAL DIFFERENTIAL)2017-06-03 06:48:00 Test Item Value Reference Range Comments TOTAL COUNTED (BEAKER) (test eqyj=6113) WBC MORPHOLOGY (BEAKER) (test qfhd=499) Normal PLT MORPHOLOGY (BEAKER) (test viml=672) Normal ANISOCYTOSIS (BEAKER) (test dyvu=389) 3+ many MATTHEWS-JOLLY BODIES (BEAKER) (test rtlt=743) Present MACROCYTES (BEAKER) (test qzym=416) 3+ many SICKLE CELLS (BEAKER) (test prfb=466) 1+ few TARGET CELLS (BEAKER) (test kbko=838) 1+ few BASIC METABOLIC [id number] 07:33:00 Test Item Value Reference Range Comments SODIUM (BEAKER) (test 138 meq/L 136-145 wtyl=565) POTASSIUM (BEAKER) (test 4.5 meq/L 3.5-5.1 legf=158) CHLORIDE (BEAKER) (test 102 meq/L 98-107 ajuk=107) CO2 (BEAKER) (test 27 meq/L 22-29 edim=216) BLOOD UREA NITROGEN 11 mg/dL 7-21 (BEAKER) (test waad=209) CREATININE (BEAKER) (test 0.55 mg/dL 0.57-1.25 pmsu=042) GLUCOSE RANDOM (BEAKER) 85 mg/dL 70-105 (test pixj=517) CALCIUM (BEAKER) (test 9.5 mg/dL 8.4-10.2 zifs=845) EGFR (BEAKER) (test 150 mL/min/1.73 sq m ESTIMATED GFR IS NOT nozv=6719) ACCURATE CREATININE CLEARANCE IN PREDICTING GLOMERULAR FILTRATION RATE. ESTIMATED GFR IS NOT APPLICABLE FOR DIALYSIS PATIENTS. CBC W/PLT COUNT & AUTO [id number] 07:13:00 Test Item Value Reference Range Comments WHITE BLOOD CELL COUNT (BEAKER) (test rdsw=981) 14.2 K/ L 3.5-10.5 RED BLOOD CELL COUNT (BEAKER) (test qxhr=941) 2.39 M/ L 3.93-5.22 HEMOGLOBIN (BEAKER) (test vxip=164) 7.6 GM/DL 11.2-15.7 HEMATOCRIT (BEAKER) (test gunc=924) 23.5 % 34.1-44.9 MEAN CORPUSCULAR VOLUME (BEAKER) (test kpiq=994) 98.3 fL 79.4-94.8 MEAN CORPUSCULAR HEMOGLOBIN (BEAKER) (test 31.8 pg 25.6-32.2 vghr=040) MEAN CORPUSCULAR HEMOGLOBIN CONC (BEAKER) (test 32.3 GM/DL 32.2-35.5 scan=083) RED CELL DISTRIBUTION WIDTH (BEAKER) (test 21.1 % 11.7-14.4 ojpt=421) PLATELET COUNT (BEAKER) (test swxb=965) 173 K/CU MM 150-450 MEAN PLATELET VOLUME (BEAKER) (test blys=773) 11.7 fL 9.4-12.3 NUCLEATED RED BLOOD CELLS (BEAKER) (test 11 /100 WBC 0-0 fzhi=272) NEUTROPHILS RELATIVE PERCENT (BEAKER) (test 53 % sjou=889) LYMPHOCYTES RELATIVE PERCENT (BEAKER) (test 27 % jfix=477) MONOCYTES RELATIVE PERCENT (BEAKER) (test 18 % rsmh=034) EOSINOPHILS RELATIVE PERCENT (BEAKER) (test 1 % jtos=156) BASOPHILS RELATIVE PERCENT (BEAKER) (test 0 % symf=540) NEUTROPHILS ABSOLUTE COUNT (BEAKER) (test 7.56 K/ L 1.56-6.13 hjak=956) LYMPHOCYTES ABSOLUTE COUNT (BEAKER) (test 3.89 K/ L 1.18-3.74 etmq=120) MONOCYTES ABSOLUTE COUNT (BEAKER) (test 2.52 K/ L 0.24-0.36 ejli=780) EOSINOPHILS ABSOLUTE COUNT (BEAKER) (test 0.20 K/ L 0.04-0.36 ilgj=637) BASOPHILS ABSOLUTE COUNT (BEAKER) (test 0.02 K/ L 0.01-0.08 kqwr=488) IMMATURE GRANULOCYTES-RELATIVE PERCENT (BEAKER) 0 % 0-1 (test pgcq=3223) CBC W/PLT COUNT & AUTO [id number] 16:45:00 Test Item Value Reference Range Comments WHITE BLOOD CELL COUNT (BEAKER) (test zyza=978) 15.1 K/ L 3.5-10.5 RED BLOOD CELL COUNT (BEAKER) (test xuvu=790) 2.36 M/ L 3.93-5.22 HEMOGLOBIN (BEAKER) (test rctp=126) 7.5 GM/DL 11.2-15.7 HEMATOCRIT (BEAKER) (test bhpe=436) 23.0 % 34.1-44.9 MEAN CORPUSCULAR VOLUME (BEAKER) (test wqcd=925) 97.5 fL 79.4-94.8 MEAN CORPUSCULAR HEMOGLOBIN (BEAKER) (test 31.8 pg 25.6-32.2 eurq=309) MEAN CORPUSCULAR HEMOGLOBIN CONC (BEAKER) (test 32.6 GM/DL 32.2-35.5 kdhu=587) RED CELL DISTRIBUTION WIDTH (BEAKER) (test 20.7 % 11.7-14.4 nqwl=944) PLATELET COUNT (BEAKER) (test yyax=150) 179 K/CU MM 150-450 MEAN PLATELET VOLUME (BEAKER) (test sltu=362) 11.9 fL 9.4-12.3 NUCLEATED RED BLOOD CELLS (BEAKER) (test 12 /100 WBC 0-0 owic=974) NEUTROPHILS RELATIVE PERCENT (BEAKER) (test 53 % uxdt=871) LYMPHOCYTES RELATIVE PERCENT (BEAKER) (test 27 % idqf=756) MONOCYTES RELATIVE PERCENT (BEAKER) (test 18 % cool=609) EOSINOPHILS RELATIVE PERCENT (BEAKER) (test 2 % wmjr=032) BASOPHILS RELATIVE PERCENT (BEAKER) (test 0 % wekh=461) NEUTROPHILS ABSOLUTE COUNT (BEAKER) (test 8.03 K/ L 1.56-6.13 vajb=207) LYMPHOCYTES ABSOLUTE COUNT (BEAKER) (test 3.99 K/ L 1.18-3.74 wfew=863) MONOCYTES ABSOLUTE COUNT (BEAKER) (test 2.65 K/ L 0.24-0.36 jwps=079) EOSINOPHILS ABSOLUTE COUNT (BEAKER) (test 0.31 K/ L 0.04-0.36 disv=722) BASOPHILS ABSOLUTE COUNT (BEAKER) (test 0.02 K/ L 0.01-0.08 swhj=685) IMMATURE GRANULOCYTES-RELATIVE PERCENT (BEAKER) 0 % 0-1 (test jhjm=4738) BASIC METABOLIC [id number] 06:17:00 Test Item Value Reference Range Comments SODIUM (BEAKER) (test 138 meq/L 136-145 loex=500) POTASSIUM (BEAKER) (test 4.1 meq/L 3.5-5.1 aesz=123) CHLORIDE (BEAKER) (test 100 meq/L 98-107 aipz=666) CO2 (BEAKER) (test 30 meq/L 22-29 kpqd=219) BLOOD UREA NITROGEN 11 mg/dL 7-21 (BEAKER) (test mwlj=970) CREATININE (BEAKER) (test 0.58 mg/dL 0.57-1.25 eirk=387) GLUCOSE RANDOM (BEAKER) 90 mg/dL 70-105 (test wyqt=347) CALCIUM (BEAKER) (test 9.4 mg/dL 8.4-10.2 proi=718) EGFR (BEAKER) (test 141 mL/min/1.73 sq m ESTIMATED GFR IS NOT zqxo=2477) ACCURATE CREATININE CLEARANCE IN PREDICTING GLOMERULAR FILTRATION RATE. ESTIMATED GFR IS NOT APPLICABLE FOR DIALYSIS PATIENTS. CBC W/PLT COUNT & AUTO [id number] 13:41:00 Test Item Value Reference Range Comments WHITE BLOOD CELL COUNT (BEAKER) (test avgv=400) 13.9 K/ L 3.5-10.5 RED BLOOD CELL COUNT (BEAKER) (test ivbi=481) 2.38 M/ L 3.93-5.22 HEMOGLOBIN (BEAKER) (test oyff=688) 7.5 GM/DL 11.2-15.7 HEMATOCRIT (BEAKER) (test zdei=012) 23.2 % 34.1-44.9 MEAN CORPUSCULAR VOLUME (BEAKER) (test nerl=287) 97.5 fL 79.4-94.8 MEAN CORPUSCULAR HEMOGLOBIN (BEAKER) (test 31.5 pg 25.6-32.2 xgsv=202) MEAN CORPUSCULAR HEMOGLOBIN CONC (BEAKER) (test 32.3 GM/DL 32.2-35.5 mwja=231) RED CELL DISTRIBUTION WIDTH (BEAKER) (test 20.2 % 11.7-14.4 kbbh=437) PLATELET COUNT (BEAKER) (test fwwz=556) 171 K/CU MM 150-450 MEAN PLATELET VOLUME (BEAKER) (test zfnr=037) 12.0 fL 9.4-12.3 NUCLEATED RED BLOOD CELLS (BEAKER) (test 8 /100 WBC 0-0 kwfj=109) NEUTROPHILS RELATIVE PERCENT (BEAKER) (test 57 % okvl=237) LYMPHOCYTES RELATIVE PERCENT (BEAKER) (test 23 % dgkx=092) MONOCYTES RELATIVE PERCENT (BEAKER) (test 18 % yjmm=371) EOSINOPHILS RELATIVE PERCENT (BEAKER) (test 2 % wtcl=611) BASOPHILS RELATIVE PERCENT (BEAKER) (test 0 % tkxr=734) NEUTROPHILS ABSOLUTE COUNT (BEAKER) (test 7.89 K/ L 1.56-6.13 mixo=903) LYMPHOCYTES ABSOLUTE COUNT (BEAKER) (test 3.13 K/ L 1.18-3.74 zhgk=560) MONOCYTES ABSOLUTE COUNT (BEAKER) (test 2.52 K/ L 0.24-0.36 dtrq=391) EOSINOPHILS ABSOLUTE COUNT (BEAKER) (test 0.25 K/ L 0.04-0.36 eypf=387) BASOPHILS ABSOLUTE COUNT (BEAKER) (test 0.02 K/ L 0.01-0.08 mvhl=258) IMMATURE GRANULOCYTES-RELATIVE PERCENT (BEAKER) 1 % 0-1 (test jnul=9062) (MANUAL DIFFERENTIAL)2017-05-31 13:41:00 Test Item Value Reference Range Comments TOTAL COUNTED (BEAKER) (test mpkx=9407) WBC MORPHOLOGY (BEAKER) (test ikyt=993) Normal PLT MORPHOLOGY (BEAKER) (test dybg=041) Normal POLYCHROMATOPHILLIC RBCS(BEAKER) (test ilro=387) 2+ moderate SICKLE CELLS (BEAKER) (test gdvh=117) 1+ few TARGET CELLS (BEAKER) (test cstg=833) 2+ moderate URINE [id number] 12:19:00 Test Item Value Reference Range Comments CULTURE (BEAKER) (test 20-29,000 col/mL skin valentino wkym=2248) BASIC METABOLIC [id number] 07:23:00 Test Item Value Reference Range Comments SODIUM (BEAKER) (test 136 meq/L 136-145 odjg=390) POTASSIUM (BEAKER) (test 3.9 meq/L 3.5-5.1 pusy=755) CHLORIDE (BEAKER) (test 97 meq/L 98-107 amwv=881) CO2 (BEAKER) (test 30 meq/L 22-29 zuxm=308) BLOOD UREA NITROGEN 9 mg/dL 7-21 (BEAKER) (test elrt=365) CREATININE (BEAKER) (test 0.56 mg/dL 0.57-1.25 lwmk=671) GLUCOSE RANDOM (BEAKER) 100 mg/dL 70-105 (test swvo=576) CALCIUM (BEAKER) (test 9.5 mg/dL 8.4-10.2 drsa=148) EGFR (BEAKER) (test 147 mL/min/1.73 sq m ESTIMATED GFR IS NOT blgy=5987) ACCURATE CREATININE CLEARANCE IN PREDICTING GLOMERULAR FILTRATION RATE. ESTIMATED GFR IS NOT APPLICABLE FOR DIALYSIS PATIENTS. U/S, ABDOMINAL, [id number] 23:52:00Reason for exam:->painShould this be performed at [...] MDReport Verified Date/Time: 05/30/2017 23:52:25 Reading Location: [address] Consult Reading Room 11:52 PMCBC W/PLT COUNT & AUTO [id number] 17:30:00 Test Item Value Reference Range Comments WHITE BLOOD CELL COUNT (BEAKER) (test fhfu=661) 14.0 K/ L 3.5-10.5 RED BLOOD CELL COUNT (BEAKER) (test xkvj=823) 2.41 M/ L 3.93-5.22 HEMOGLOBIN (BEAKER) (test begi=494) 7.7 GM/DL 11.2-15.7 HEMATOCRIT (BEAKER) (test knba=562) 23.3 % 34.1-44.9 MEAN CORPUSCULAR VOLUME (BEAKER) (test ewgr=346) 96.7 fL 79.4-94.8 MEAN CORPUSCULAR HEMOGLOBIN (BEAKER) (test 32.0 pg 25.6-32.2 ipqy=158) MEAN CORPUSCULAR HEMOGLOBIN CONC (BEAKER) (test 33.0 GM/DL 32.2-35.5 vtwr=881) RED CELL DISTRIBUTION WIDTH (BEAKER) (test 20.0 % 11.7-14.4 egea=132) PLATELET COUNT (BEAKER) (test qvjd=441) 163 K/CU MM 150-450 MEAN PLATELET VOLUME (BEAKER) (test ffgh=402) 11.7 fL 9.4-12.3 NUCLEATED RED BLOOD CELLS (BEAKER) (test 4 /100 WBC 0-0 patf=536) NEUTROPHILS RELATIVE PERCENT (BEAKER) (test 47 % vxzv=773) LYMPHOCYTES RELATIVE PERCENT (BEAKER) (test 32 % lmvq=729) MONOCYTES RELATIVE PERCENT (BEAKER) (test 18 % nzng=634) EOSINOPHILS RELATIVE PERCENT (BEAKER) (test 3 % jluf=211) BASOPHILS RELATIVE PERCENT (BEAKER) (test 0 % vrya=033) NEUTROPHILS ABSOLUTE COUNT (BEAKER) (test 6.58 K/ L 1.56-6.13 wkld=049) LYMPHOCYTES ABSOLUTE COUNT (BEAKER) (test 4.40 K/ L 1.18-3.74 gclg=288) MONOCYTES ABSOLUTE COUNT (BEAKER) (test 2.49 K/ L 0.24-0.36 mjsj=095) EOSINOPHILS ABSOLUTE COUNT (BEAKER) (test 0.44 K/ L 0.04-0.36 woyb=348) BASOPHILS ABSOLUTE COUNT (BEAKER) (test 0.02 K/ L 0.01-0.08 ckgi=759) IMMATURE GRANULOCYTES-RELATIVE PERCENT (BEAKER) 0 % 0-1 (test cmkr=1886) BASIC METABOLIC [id number] 06:33:00 Test Item Value Reference Range Comments SODIUM (BEAKER) (test 139 meq/L 136-145 jqtw=672) POTASSIUM (BEAKER) (test 4.0 meq/L 3.5-5.1 lhai=857) CHLORIDE (BEAKER) (test 102 meq/L 98-107 hvzu=440) CO2 (BEAKER) (test 28 meq/L 22-29 evlx=111) BLOOD UREA NITROGEN 7 mg/dL 7-21 (BEAKER) (test pafz=354) CREATININE (BEAKER) (test 0.54 mg/dL 0.57-1.25 yunc=728) GLUCOSE RANDOM (BEAKER) 95 mg/dL 70-105 (test vysd=218) CALCIUM (BEAKER) (test 9.6 mg/dL 8.4-10.2 uvvl=437) EGFR (BEAKER) (test 153 mL/min/1.73 sq m ESTIMATED GFR IS NOT yplw=0934) ACCURATE CREATININE CLEARANCE IN PREDICTING GLOMERULAR FILTRATION RATE. ESTIMATED GFR IS NOT APPLICABLE FOR DIALYSIS PATIENTS. CBC W/PLT COUNT & AUTO [id number] 13:41:00 Test Item Value Reference Range Comments WHITE BLOOD CELL COUNT (BEAKER) (test edkf=762) 14.6 K/ L 3.5-10.5 RED BLOOD CELL COUNT (BEAKER) (test sslz=490) 1.85 M/ L 3.93-5.22 HEMOGLOBIN (BEAKER) (test iqwn=623) 5.9 GM/DL 11.2-15.7 HEMATOCRIT (BEAKER) (test obxy=141) 18.5 % 34.1-44.9 MEAN CORPUSCULAR VOLUME (BEAKER) (test dzfr=715) 100.0 fL 79.4-94.8 MEAN CORPUSCULAR HEMOGLOBIN (BEAKER) (test 31.9 pg 25.6-32.2 ggjy=701) MEAN CORPUSCULAR HEMOGLOBIN CONC (BEAKER) (test 31.9 GM/DL 32.2-35.5 jgee=067) RED CELL DISTRIBUTION WIDTH (BEAKER) (test 21.0 % 11.7-14.4 mcgo=690) PLATELET COUNT (BEAKER) (test txne=196) 169 K/CU MM 150-450 MEAN PLATELET VOLUME (BEAKER) (test ojdl=983) 12.1 fL 9.4-12.3 NUCLEATED RED BLOOD CELLS (BEAKER) (test 3 /100 WBC 0-0 weip=900) NEUTROPHILS RELATIVE PERCENT (BEAKER) (test 52 % ljmt=499) LYMPHOCYTES RELATIVE PERCENT (BEAKER) (test 28 % twhd=709) MONOCYTES RELATIVE PERCENT (BEAKER) (test 16 % qwjh=317) EOSINOPHILS RELATIVE PERCENT (BEAKER) (test 4 % dhbt=592) BASOPHILS RELATIVE PERCENT (BEAKER) (test 0 % fzoj=550) NEUTROPHILS ABSOLUTE COUNT (BEAKER) (test 7.50 K/ L 1.56-6.13 dmif=761) LYMPHOCYTES ABSOLUTE COUNT (BEAKER) (test 4.08 K/ L 1.18-3.74 iuvs=499) MONOCYTES ABSOLUTE COUNT (BEAKER) (test 2.34 K/ L 0.24-0.36 akmp=720) EOSINOPHILS ABSOLUTE COUNT (BEAKER) (test 0.56 K/ L 0.04-0.36 dquk=003) BASOPHILS ABSOLUTE COUNT (BEAKER) (test 0.02 K/ L 0.01-0.08 azsj=375) IMMATURE GRANULOCYTES-RELATIVE PERCENT (BEAKER) 0 % 0-1 (test rcij=2284) (MANUAL DIFFERENTIAL)2017-05-29 13:41:00 Test Item Value Reference Range Comments TOTAL COUNTED (BEAKER) (test xqmt=3096) WBC MORPHOLOGY (BEAKER) (test ggfy=400) Normal PLT MORPHOLOGY (BEAKER) (test wgph=677) Normal POLYCHROMATOPHILLIC RBCS(BEAKER) (test rcan=715) 2+ moderate SICKLE CELLS (BEAKER) (test whtw=438) 1+ few TARGET CELLS (BEAKER) (test jpdq=492) 2+ moderate BASIC METABOLIC [id number] 07:38:00 Test Item Value Reference Range Comments SODIUM (BEAKER) (test 140 meq/L 136-145 fdjb=757) POTASSIUM (BEAKER) (test 3.9 meq/L 3.5-5.1 wdjf=214) CHLORIDE (BEAKER) (test 104 meq/L 98-107 yjhy=796) CO2 (BEAKER) (test 28 meq/L 22-29 bnge=179) BLOOD UREA NITROGEN 8 mg/dL 7-21 (BEAKER) (test xvxk=586) CREATININE (BEAKER) (test 0.56 mg/dL 0.57-1.25 cmtg=868) GLUCOSE RANDOM (BEAKER) 129 mg/dL 70-105 (test azol=054) CALCIUM (BEAKER) (test 9.2 mg/dL 8.4-10.2 akus=546) EGFR (BEAKER) (test 147 mL/min/1.73 sq m ESTIMATED GFR IS NOT bycb=4694) ACCURATE CREATININE CLEARANCE IN PREDICTING GLOMERULAR FILTRATION RATE. ESTIMATED GFR IS NOT APPLICABLE FOR DIALYSIS PATIENTS. CBC W/PLT COUNT & AUTO [id number] 15:40:00 Test Item Value Reference Range Comments WHITE BLOOD CELL COUNT (BEAKER) (test bcao=944) 15.5 K/ L 3.5-10.5 RED BLOOD CELL COUNT (BEAKER) (test ugqk=977) 2.13 M/ L 3.93-5.22 HEMOGLOBIN (BEAKER) (test aetq=049) 6.8 GM/DL 11.2-15.7 HEMATOCRIT (BEAKER) (test xqhy=841) 21.1 % 34.1-44.9 MEAN CORPUSCULAR VOLUME (BEAKER) (test yfry=569) 99.1 fL 79.4-94.8 MEAN CORPUSCULAR HEMOGLOBIN (BEAKER) (test 31.9 pg 25.6-32.2 aupx=455) MEAN CORPUSCULAR HEMOGLOBIN CONC (BEAKER) (test 32.2 GM/DL 32.2-35.5 zjmd=182) RED CELL DISTRIBUTION WIDTH (BEAKER) (test 20.8 % 11.7-14.4 lyah=566) PLATELET COUNT (BEAKER) (test ubgd=129) 178 K/CU MM 150-450 MEAN PLATELET VOLUME (BEAKER) (test fmgo=348) 11.9 fL 9.4-12.3 NUCLEATED RED BLOOD CELLS (BEAKER) (test 2 /100 WBC 0-0 fnpz=403) NEUTROPHILS RELATIVE PERCENT (BEAKER) (test 47 % trkb=220) LYMPHOCYTES RELATIVE PERCENT (BEAKER) (test 34 % vhtu=431) MONOCYTES RELATIVE PERCENT (BEAKER) (test 16 % umjj=102) EOSINOPHILS RELATIVE PERCENT (BEAKER) (test 3 % wtbk=953) BASOPHILS RELATIVE PERCENT (BEAKER) (test 0 % qqia=356) NEUTROPHILS ABSOLUTE COUNT (BEAKER) (test 7.20 K/ L 1.56-6.13 qodx=856) LYMPHOCYTES ABSOLUTE COUNT (BEAKER) (test 5.22 K/ L 1.18-3.74 afmh=118) MONOCYTES ABSOLUTE COUNT (BEAKER) (test 2.50 K/ L 0.24-0.36 ryhh=826) EOSINOPHILS ABSOLUTE COUNT (BEAKER) (test 0.48 K/ L 0.04-0.36 duvi=472) BASOPHILS ABSOLUTE COUNT (BEAKER) (test 0.02 K/ L 0.01-0.08 hkyc=650) IMMATURE GRANULOCYTES-RELATIVE PERCENT (BEAKER) 1 % 0-1 (test pioy=2359) (MANUAL DIFFERENTIAL)2017-05-28 15:40:00 Test Item Value Reference Range Comments TOTAL COUNTED (BEAKER) (test gxff=9975) WBC MORPHOLOGY (BEAKER) (test jcgw=125) Normal PLT MORPHOLOGY (BEAKER) (test bmrb=706) Normal ANISOCYTOSIS (BEAKER) (test ilke=486) 2+ moderate POLYCHROMATOPHILLIC RBCS(BEAKER) (test ksch=659) 2+ moderate SICKLE CELLS (BEAKER) (test ratm=461) 1+ few TARGET CELLS (BEAKER) (test foer=245) 2+ moderate URINALYSIS W/ [id number] 15:13:00 Test Item Value Reference Range Comments COLOR (BEAKER) (test lfrn=794) Yellow CLARITY (BEAKER) (test yava=792) Clear SPECIFIC GRAVITY UA (BEAKER) (test ufhe=782) 1.008 1.001-1.035 PH UA (BEAKER) (test qrql=004) 6.0 5.0-8.0 PROTEIN UA (BEAKER) (test bhqq=022) Negative Negative GLUCOSE UA (BEAKER) (test jzbj=254) Negative Negative KETONES UA (BEAKER) (test jjpv=858) Negative Negative BILIRUBIN UA (BEAKER) (test sfzm=793) Negative Negative BLOOD UA (BEAKER) (test xdta=736) Negative Negative NITRITE UA (BEAKER) (test safn=242) Negative Negative LEUKOCYTE ESTERASE UA (BEAKER) (test llfc=118) Negative Negative UROBILINOGEN UA (BEAKER) (test bcuu=036) 0.2 mg/dL 0.2-1.0 RBC UA (BEAKER) (test nsnz=531) < /HPF WBC UA (BEAKER) (test ozts=426) 2 /HPF MUCUS (BEAKER) (test ymwm=9074) Rare SQUAMOUS EPITHELIAL (BEAKER) (test afvs=048) 5 /HPF SOURCE(BEAKER) (test huig=9572) Urine, Voided BASIC METABOLIC [id number] 06:26:00 Test Item Value Reference Range Comments SODIUM (BEAKER) (test 139 meq/L 136-145 itbh=169) POTASSIUM (BEAKER) (test 3.8 meq/L 3.5-5.1 enjv=537) CHLORIDE (BEAKER) (test 104 meq/L 98-107 afay=136) CO2 (BEAKER) (test 30 meq/L 22-29 rhwk=683) BLOOD UREA NITROGEN 6 mg/dL 7-21 (BEAKER) (test rslz=634) CREATININE (BEAKER) (test 0.56 mg/dL 0.57-1.25 jywv=150) GLUCOSE RANDOM (BEAKER) 102 mg/dL 70-105 (test ngxa=329) CALCIUM (BEAKER) (test 9.0 mg/dL 8.4-10.2 ymvx=088) EGFR (BEAKER) (test 147 mL/min/1.73 sq m ESTIMATED GFR IS NOT hgfu=7776) ACCURATE CREATININE CLEARANCE IN PREDICTING GLOMERULAR FILTRATION RATE. ESTIMATED GFR IS NOT APPLICABLE FOR DIALYSIS PATIENTS.
[2018-09-25 15:24] LABS: Hematocrit 20.3 % (36.0-45.0); MPV 9.1 fL (7.6-11.3); RBC Red Blood Cell Count 1.79 M/uL (3.86-4.86)
[2018-09-25] MEDS ORDERED: NA CHLORIDE 0.9% 1,000 ML ONE ×2 (15:39→15:40)
[2018-09-25] MEDS ORDERED: DIPHENHYDRAMINE 50 MG/ML VIAL ONE (15:39)
[2018-09-25] MEDS ORDERED: HYDROMORPHONE HCL 1 MG/ML INJ ONE ×2 (15:39→18:44)
[2018-09-25 15:44] LABS: Potassium 4.4 mmol/L (3.5-5.1)
--- NOTE | 2018-09-25 15:48 | RAD REPORT ---
EXAM DESCRIPTION: [facility] Single View09/25/2018 3:25 pm CLINICAL HISTORY: Chest pain COMPARISON: July 2018 FINDINGS: The lungs appear clear of acute infiltrate. The heart is moderately enlarged. Central alexis ous catheter remains in place IMPRESSION: No acute abnormalities displayed
[2018-09-25 16:22] LABS: Urine Blood 2+ (NEG); Urine Glucose NEGATIVE (NEG); Urine Protein 1+ (NEG); Urine Specific Gravity 1.015 (1.005-1.030); Urine pH 5.5 (5.0-7.0)
--- NOTE | 2018-09-25 17:12 | EKG ---
Test Date: 2018-08-25 Test Time: 14:03:17 Seo Consultant: MARINA MEASUREMENT RESULTS: Intervals: Rate: 81 TN: 176 QRSD: 74 QT: 388 QTc: 450 [place]: P: 58 TN: 176 QRS: 47 T: 31 INTERPRETIVE STATEMENTS: Sinus rhythm with premature atrial complexes Otherwise normal ECG Compared to ECG 06/07/2018 13:30:36 No significant changes Electronically Signed On 09-25-18 17:11:30 HAND ETCHER HELPER by Javid Randhawa
--- NOTE | 2018-09-25 18:26 | EDPHYS ---
Physician Documentation [facility] Name: Brennon Berg Age: 38 yrs Sex: Female : 1980 Arrival Date: 09/25/2018 Time: 13:12 Bed 20 Private MD: ED Physician Flaco Cook HPI: 09/25 14:00 This 38 yrs old Black Female presents to ER via Ambulatory with complaints of Shortness rn Of Breath, Chest Pain. 14:00 The patient has shortness of breath at rest, with light activity. Onset: The rn symptoms/episode began/occurred at an unknown time. Duration: The symptoms are intermittent. The patient's shortness of breath is aggravated by exertion, is alleviated by nothing. Severity of symptoms: At their worst the symptoms were mild in the emergency department the symptoms are unchanged. The patient has experienced similar episodes in the past. The patient has not recently seen a physician. Reports chest pain, sob, whole body aching, no fever, no cough, no vomiting, no abd pain. Reports her typical symptoms as she has had in past. . 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 N/A - Hysterectomy aa5 Historical: - Allergies: 13:27 Fentanyl; aa5 13:27 Morphine; aa5 13:27 Reglan; aa5 13:27 Stadol; aa5 13:27 Toradol; aa5 13:27 tramadol; aa5 13:27 Trazodone; aa5 13:27 Ultram; aa5 13:27 Zofran; aa5 - Home Meds: 13:27 gabapentin 300 mg Oral cap 1 cap 3 times per day [Active]; Hydrea 500 mg Oral cap TID hj [Active]; hydrocodone-acetaminophen 10-325 mg Oral tab [Active]; hydroxyurea 500 mg Oral cap 1 cap every 3 days [Active]; Keppra 250 mg Oral tab 1 tabs 2 times per day [Active]; promethazine 25 mg Oral tab [Active]; Xanax 2 mg Oral tab 2 times a day [Active]; - PMHx: 13:27 aplastic anemia; CVA; L sided weakness; Myocardial infarction; Seizures; Sickle Cell; aa5 - PSHx: 13:29 Hysterectomy; spleenectomy; aa5 - Immunization history:: Adult Immunizations up to date. - Social history:: Smoking status: Patient/guardian denies using tobacco. - Ebola Screening: : No symptoms or risks identified at this time. - Family history:: not pertinent. - Hospitalizations: : No recent hospitalization is reported. ROS: 14:00 Constitutional: Negative for fever, chills, and weight loss, Eyes: Negative for injury, rn pain, redness, and discharge, Neck: Negative for injury, pain, and swelling, Cardiovascular: Negative for chest pain, palpitations, and edema, Respiratory: Negative for wheezing Abdomen/GI: Negative for abdominal pain, nausea, vomiting, diarrhea, and constipation, MS/Extremity: Negative for injury and deformity, Skin: Negative for injury, rash, and discoloration, Neuro: Negative for headache, numbness, tingling, and seizure. Exam: 14:00 Constitutional: This is a well developed, well nourished patient who is awake, alert, rn and in no acute distress. Head/Face: Normocephalic, atraumatic. Eyes: Pupils equal round and reactive to light, extra-ocular motions intact. Periorbital areas with no swelling, redness, or edema. ENT: MMM Cardiovascular: Regular rate and rhythm. No pulse deficits. Respiratory: Lungs have equal breath sounds bilaterally, clear to auscultation. No increased work of breathing, no retractions or nasal flaring. Abdomen/GI: soft, non-tender MS/ Extremity: Pulses equal, no cyanosis. Neurovascular intact. Full, normal range of motion. Equal circumference. Neuro: Awake and alert, GCS 15, oriented to person, place, time, and situation. Cranial nerves II-XII grossly intact. Motor strength 5/5 in all extremities. Sensory grossly intact. Cerebellar exam normal. Normal gait. Vital Signs: 13:28 BP 149 / 97; Pulse 73; Resp 18 S; Temp 97.6(TE); Pulse Ox 100% on R/A; Weight 72.57 kg aa5 (R); Height 5 ft. 3 in. (160.02 cm) (R); Pain 10/10; 14:30 BP 130 / 87; Pulse 72; Resp 18; Pulse Ox 100% on R/A; hj 15:30 BP 132 / 90; Pulse 75; Resp 18; Pulse Ox 100% on R/A; hj 17:17 BP 148 / 80; Pulse 80; Resp 18; Pulse Ox 100% on R/A; hj 18:23 BP 142 / 79; Pulse 78; Resp 18; Pulse Ox 100% on 2 lpm NC; hj 13:28 Body Mass Index 28.34 (72.57 kg, 160.02 cm) aa5 MDM: 13:55 Patient medically screened. rn 18:23 Differential diagnosis: Anemia sickle cell anemia, crisis. Data reviewed: vital signs, rn nurses notes, lab test result(s), radiologic studies, plain films, and as a result, I will discharge patient. Counseling: I had a detailed discussion with the patient and/or guardian regarding: the historical points, exam findings, and any diagnostic results supporting the discharge/admit diagnosis, lab results, radiology results, the need for outpatient follow up, to return to the emergency department if symptoms worsen or persist or if there are any questions or concerns that arise at home. Special discussion: I discussed with the patient/guardian in detail that at this point there is no indication for admission to the hospital. It is understood, however, that if the symptoms persist or worsen the patient needs to return immediately for re-evaluation. Based on the history and exam findings, there is no indication for further emergent testing or inpatient evaluation. I discussed with the patient/guardian the need to see the grinding wheel dresser/oncologist for further evaluation of the symptoms. I discussed with the patient/guardian the need to see the primary care provider for further evaluation of the symptoms. 18:43 ED course: Spoke with patient, she is upset, states needs dilaudid/phenergan/benadryl rn to get better. TOld her she could probably benefit from blood transfusion, offered to admit her for blood transfusion, but she states that they dont give her dialudid/phenergan/benadryl upstairs so doesn't want to stay. Told her blood is the most important thing for her, she refuses, states will drive herself to [facility] in [place], requesting dilaudid/phenergan/benadryl before she leaves, told her would not give those meds and then discharge her for her safety. She again refuses admission for blood transfusion stating they dont treat her well and dont given her what she wants upstairs. . 09/25 13:56 Order name: CBC with Diff rn 09/25 13:56 Order name: Basic Metabolic Panel; Complete Time: 15:47 rn 09/25 13:56 Order name: XRAY Chest (1 view); Complete Time: 15:55 rn 09/25 13:56 Order name: Retic Count rn 09/25 14:43 Order name: Urine Dipstick--Ancillary (enter results); Complete Time: 16:26 bd 09/25 14:43 Order name: Urine --Ancillary (enter results); Complete Time: 16:26 bd 09/25 13:56 Order name: IV Start; Complete Time: 15:26 rn 09/25 13:56 Order name: EKG; Complete Time: 13:57 rn 09/25 13:56 Order name: EKG - Nurse/Tech; Complete Time: 14:02 rn Administered Medications: 15:25 Drug: Dilaudid 1 mg Route: IVP; Site: Port-a-cath; hj 15:50 Follow up: Response: No adverse reaction hj 15:25 Drug: Benadryl 50 mg Route: IVP; Site: Port-a-cath; hj 15:51 Follow up: Response: No adverse reaction hj 15:25 Drug: NS 0.9% 1000 ml Route: IV; Rate: 1000 ml; Site: Port-a-cath; hj 16:00 Follow up: IV Status: Completed infusion; IV Intake: 1000ml hj 18:51 Drug: Dilaudid 1 mg Route: IVP; Site: Port-a-cath; hj 18:51 Follow up: Response: No adverse reaction hj 18:51 Drug: HEParin Flush 500 units Route: IVP; Site: Port-a-cath; hj 18:57 Follow up: Response: No adverse reaction hj Disposition: 09/25/18 18:25 Discharged to Home. Impression: Sickle-cell disorders, Anemia in other chronic diseases classified elsewhere. - Condition is Stable. - Discharge Instructions: Sickle Cell Anemia, Adult. - Medication Reconciliation Form, Thank You Letter, Antibiotic Education, Prescription Opioid Use form. - Follow up: Private Physician; When: As needed; Reason: Recheck today's complaints, Re-evaluation by your physician. - Problem is an acute exacerbation. - Symptoms have improved. Signatures: Dispatcher [employer] EDFlaco Donahue MD MD rn Calderon, Audri, RN RN 5 Bernardo Curtis RN RN hj Corrections: (The following items were deleted from the chart) 19:09 18:25 09/25/2018 18:25 Discharged to Home. Impression: Sickle-cell disorders; Anemia in hj other chronic diseases classified elsewhere. Condition is Stable. Forms are Medication Reconciliation Form, Thank You Letter, Antibiotic Education, Prescription Opioid Use. Follow up: Private Physician; When: As needed; Reason: Recheck today's complaints, Re-evaluation by your physician. Problem is an acute exacerbation. Symptoms have improved. rn
--- NOTE | 2018-09-25 18:26 | ER ---
Nurse's Notes [facility] Name: Brennon Berg Age: 38 yrs Sex: Female : 1980 Arrival Date: 09/25/2018 Time: 13:12 Bed 20 Private MD: Diagnosis: Sickle-cell disorders;Anemia in other chronic diseases classified elsewhere Presentation: 09/25 13:24 Presenting complaint: Patient states: "I've been short of breath and my legs are aa5 swollen". Pt also reports chest pain that began this morning. Transition of care: patient was not received from another setting of care. Onset of symptoms was September 2018. Risk Assessment: Do you want to hurt yourself or someone else? Patient reports no desire to harm self or others. Initial Sepsis Screen: Does the patient meet any 2 criteria? No. Patient's initial sepsis screen is negative. Does the patient have a suspected source of infection? No. Patient's initial sepsis screen is negative. Care prior to arrival: None. 13:24 Method Of Arrival: Ambulatory aa5 13:24 Acuity: TEMI 3 aa5 Triage Assessment: 13:54 General: Appears in no apparent distress. uncomfortable, Behavior is calm, cooperative, hj appropriate for age. Respiratory: Reports shortness of breath Onset: The symptoms/episode began/occurred gradually, the patient has mild shortness of breath. 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 - Hysterectomy aa5 Historical: - Allergies: 13:27 Fentanyl; aa5 13:27 Morphine; aa5 13:27 Reglan; aa5 13:27 Stadol; aa5 13:27 Toradol; aa5 13:27 tramadol; aa5 13:27 Trazodone; aa5 13:27 Ultram; aa5 13:27 Zofran; aa5 - Home Meds: 13:27 gabapentin 300 mg Oral cap 1 cap 3 times per day [Active]; Hydrea 500 mg Oral cap TID hj [Active]; hydrocodone-acetaminophen 10-325 mg Oral tab [Active]; hydroxyurea 500 mg Oral cap 1 cap every 3 days [Active]; Keppra 250 mg Oral tab 1 tabs 2 times per day [Active]; promethazine 25 mg Oral tab [Active]; Xanax 2 mg Oral tab 2 times a day [Active]; - PMHx: 13:27 aplastic anemia; CVA; L sided weakness; Myocardial infarction; Seizures; Sickle Cell; aa5 - PSHx: 13:29 Hysterectomy; spleenectomy; aa5 - Immunization history:: Adult Immunizations up to date. - Social history:: Smoking status: Patient/guardian denies using tobacco. - Ebola Screening: : No symptoms or risks identified at this time. - Family history:: not pertinent. - Hospitalizations: : No recent hospitalization is reported. Screenin:54 Abuse screen: Denies threats or abuse. Denies injuries from another. Nutritional hj screening: No deficits noted. Tuberculosis screening: No symptoms or risk factors identified. Fall Risk None identified. Assessment: 13:54 Pain: Complains of pain in chest. Cardiovascular: Rhythm is. Respiratory: Airway is hj patent Respiratory effort is even, unlabored, Respiratory pattern is regular, symmetrical, Breath sounds are clear. 14:30 Reassessment: Patient and/or family updated on plan of care and expected duration. Pain hj level reassessed. Patient is alert, oriented x 3, equal unlabored respirations, skin warm/dry/pink. complaints of pain; MD notified with orders;. 17:16 Reassessment: Patient and/or family updated on plan of care and expected duration. Pain hj level reassessed. Patient is alert, oriented x 3, equal unlabored respirations, skin warm/dry/pink. awaiting results and POc;. 17:39 Reassessment: pt requested to speak with MD; MD notified;. hj 18:22 Reassessment: awaiting retic count result; POC pending;. hj Vital Signs: 13:28 BP 149 / 97; Pulse 73; Resp 18 S; Temp 97.6(TE); Pulse Ox 100% on R/A; Weight 72.57 kg aa5 (R); Height 5 ft. 3 in. (160.02 cm) (R); Pain 10/10; 14:30 BP 130 / 87; Pulse 72; Resp 18; Pulse Ox 100% on R/A; hj 15:30 BP 132 / 90; Pulse 75; Resp 18; Pulse Ox 100% on R/A; hj 17:17 BP 148 / 80; Pulse 80; Resp 18; Pulse Ox 100% on R/A; hj 18:23 BP 142 / 79; Pulse 78; Resp 18; Pulse Ox 100% on 2 lpm NC; hj 13:28 Body Mass Index 28.34 (72.57 kg, 160.02 cm) aa5 ED Course: 13:12 Patient arrived in ED. mr 13:27 Triage completed. aa5 13:27 Arm band placed on. aa5 13:53 Bernardo Curtis, RN is Primary Nurse. hj 13:54 Patient has correct armband on for positive identification. Placed in gown. Bed in low hj position. Call light in reach. Side rails up X 1. 13:55 Flaco Cook MD is Attending Physician. rn 14:05 EKG done, by solar installation technician. reviewed by Flaco Cook MD. 3 14:15 Note: cxr delayed due to RN accessing pt's port for labs, RN was notified to call [id number] mh1 when ready for cxr this was at 1414. 15:07 Accessed using accessed w/ # 20 Brasher needle, ,sterile technique, per hospital iw protocol. Clean \\T\\ dry. Dressing intact. Good blood return. Flushes easily. 15:08 Initial lab(s) drawn, by me, sent to lab. iw 15:24 XRAY Chest (1 view) In Process Unspecified. EDMS 18:59 No provider procedures requiring assistance completed. IV discontinued, intact, hj bleeding controlled, No redness/swelling at site. Pressure dressing applied. Administered Medications: 15:25 Drug: Dilaudid 1 mg Route: IVP; Site: Port-a-cath; hj 15:50 Follow up: Response: No adverse reaction hj 15:25 Drug: Benadryl 50 mg Route: IVP; Site: Port-a-cath; hj 15:51 Follow up: Response: No adverse reaction hj 15:25 Drug: NS 0.9% 1000 ml Route: IV; Rate: 1000 ml; Site: Port-a-cath; hj 16:00 Follow up: IV Status: Completed infusion; IV Intake: 1000ml hj 18:51 Drug: Dilaudid 1 mg Route: IVP; Site: Port-a-cath; hj 18:51 Follow up: Response: No adverse reaction hj 18:51 Drug: HEParin Flush 500 units Route: IVP; Site: Port-a-cath; hj 18:57 Follow up: Response: No adverse reaction hj Intake: 16:00 IV: 1000ml; Total: 1000ml. hj Outcome: 18:25 Discharge ordered by . rn 18:59 Discharged to home ambulatory. jaquan 18:59 Condition: stable 18:59 Discharge instructions given to patient, Instructed on discharge instructions, follow up and referral plans. Demonstrated understanding of instructions, follow-up care. 19:09 Patient left the ED. jaquan Signatures: Dispatcher [employer] EDRegina Rodriguez Martha 1 Patrizia Armenta, RN RN Flaco Cook MD MD rn Calderon, Audri, RN RN aa5 Bernardo Curtis RN Ana Luisa Summers 3
[2018-09-25] MEDS ORDERED: HEPARIN 500 UNIT/5 ML SYR IV ONE (19:04)
[2018-09-25 19:46] VITALS: TEMP 97.6; O2SAT 100
[2018-09-25 19:51] VITALS: BP 142/79
[2018-09-25 20:03] LABS: Platelet Estimate ADEQ
[2018-09-25 20:04] LABS: Anisocytosis 3+; Blood Morphology Comment NOTED (NOT SEEN); Hypochromasia 1+; Ovalocytes 1+; Platelets, Giant PRESENT; Polychromasia 3+; Target Cells 1+
== END 2018-09-25 19:09 | disposition home or self-care (01) ==
LOC: ER 13:10
DX: D57.1 Sickle-cell disease without crisis (principal); D63.8 Anemia in other chronic diseases classified elsewhere; G40.909 Epilepsy, unspecified, not intractable, without status epilepticus; I25.2 Old myocardial infarction; Z88.5 Allergy status to narcotic agent; Z88.6 Allergy status to analgesic agent; Z88.8 Allergy status to other drugs, medicaments and biological substances
CPT/HCPCS: 36415; 71045; 80048; 81003; 81025; 85025; 85044; 93005; 96361; 96374; 96375; 99284; J1170 ×2; J1642; J7030 ×2

== ENCOUNTER 2019-03-04 11:39 | Emergency (ER) | payer OTHER ==
--- OUTSIDE RECORDS SUMMARY | 2019-03-04 11:45 | XMS REPORT | Clinical Summary ---
:1980 Author Organization [facility] Address [address] [place] [address] Care Team Providers Name Role Phone Kwesi Guaman MD Primary Care Provider Unavailable Chavo Pate Unavailable Allergies Active Allergy Reactions Severity Noted Date Comments Morphine Other (See Comments) 11/27/2013 seizures Metoclopramide Hcl 12/30/2018 Butorphanol Tartrate Other (See Comments) 11/27/2013 seizures Kkx-Xw-Jwm-Osjibfem-Uzcbg-Ldno 10/01/2014 seizure Ketorolac Other (See Comments) 11/27/2013 seizures Tramadol Other (See Comments) High 02/21/2014 Seizure Trazodone 10/01/2014 seizure Ondansetron Hcl (Pf) Other (See Comments) 11/27/2013 seizures Medications Medication Sig Dispensed Refills Start Date End Date Status folic acid Take 1 mg by 0 Active (FOLVITE) 1 MG mouth daily. tablet promethazine Take 25 mg by 0 Active (PHENERGAN) 25 MG mouth every 4 tablet (four) hours as needed for Nausea . HYDROcodone-acetami Take 2 tablets 0 Active nophen (NORCO by mouth every 10-325) 10-325 mg 4 (four) hours per as needed for tabletIndications: Pain. Pain mirtazapine Take 45 mg by 0 Active (REMERON) 45 MG mouth nightly. tabletIndications: major depressive disorder triamcinolone Apply topically 0 Active (KENALOG) 0.1 % 3 (three) times lotionIndications: daily as needed contact dermatitis, . skin rash predniSONE Take 20 mg by 0 Active (DELTASONE) 20 MG mouth daily. tablet mINOCYCLine Take 100 mg by 0 Active (MINOCIN,DYNACIN) mouth 2 (two) 100 MG capsule times daily. ibuprofen TK 1 T PO Q 8 3 12/13/2018 Active (ADVIL,MOTRIN) 600 H WF PRN P. MG tablet hydroxyurea Take 500 mg by 0 Discontinued (DROXIA) 500 mg mouth 3 (three) 9 capsule times daily . ALPRAZolam (XANAX) Take 2 mg by 0 Discontinued 2 MG tablet mouth 3 (three) 9 times daily as needed for Sleep . levETIRAcetam Take 250 mg by 0 Discontinued (KEPPRA) 250 MG mouth 2 (two) 9 tabletIndications: times daily. 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 10/01/2018 Sickle cell anemia 01/09/2016 Iron overload due to repeated red blood cell transfusions 11/29/2013 History of drug abuse 11/29/2013 Cough 11/28/2013 Resolved Problems Problem Noted Date Resolved Date Pain 12/01/2013 09/29/2018 Sickle cell anemia with crisis 11/30/2013 09/29/2018 Sickle cell crisis 11/28/2013 09/28/2018 Total body pain 11/28/2013 09/28/2018 Encounters Date Type Specialty Care Team Description 12/30/2018 - Hospital Encounter Oncology Lise De Jesus MD History of drug abuse 01/09/2019 12/30/2018 Travel 09/28/2018 Travel 09/27/2018 - Hospital Encounter Oncology Kwesi Guaman 10/06/2018 MD Justin after 03/03/2018 Family History Medical History Relation Name Comments Heart disease Father Hypertension Father Hypertension Mother Relation Name Status Comments Father Mother Social History Tobacco Use Types Packs/Day Years Used Date Never Smoker Smokeless Tobacco: Never Used Alcohol Use Drinks/Week oz/Week Comments Yes very rare Sex Assigned at Date Recorded Not on file Job Start Date Occupation Industry Not on file Not on file Not on file Travel History Travel Start Travel End No recent travel history available. Last Filed Vital Signs Vital Sign Reading Time Taken Blood Pressure 124/70 01/09/2019 8:13 AM CDT Pulse 97 01/09/2019 8:13 AM CDT Temperature 37.1 C (98.7 F) 01/09/2019 8:13 AM CDT Respiratory Rate 18 01/09/2019 8:13 AM CDT Oxygen Saturation 99% 01/09/2019 8:13 AM CDT Inhaled Oxygen Concentration - - Weight 78.8 kg (173 lb 11.6 oz) 12/31/2018 9:31 AM CDT Height 160 cm (5' 3") 12/30/2018 8:14 AM CDT Body Mass Index 30.77 12/31/2018 9:31 AM CDT Plan of Treatment Not on file Procedures Procedure Name Priority Date/Time Associated Comments Diagnosis RHYTHM STRIP - SCAN 01/10/2019 4:[address] CHEST PE TEST DESIGN Routine 01/08/2019 9:42 Results for this AM CDT procedure are in the results section. CREATINE KINASE (CK) Routine 01/08/2019 1:04 Results for this AM CDT procedure are in the results section. TROPONIN I Routine 01/08/2019 1:04 Results for this AM CDT procedure are in the results section. ECG 12-LEAD Routine 01/07/2019 6:28 Results for this PM CDT procedure are in the results section. CREATINE KINASE (CK) Routine 01/07/2019 6:26 Results for this PM CDT procedure are in the results section. TROPONIN I Routine 01/07/2019 6:26 Results for this PM CDT procedure are in the results section. XR CHEST 1 VIEW STAT 01/07/2019 8:18 Results for this PORTABLE/BEDSIDE AM CDT procedure are in the results section. (CELLAVISION MANUAL Routine 01/06/2019 3:57 Results for this DIFF) AM CDT procedure are in the results section. CBC W/PLT COUNT & AUTO Routine 01/06/2019 3:57 Results for this DIFFERENTIAL AM CDT procedure are in the results section. CBC W/PLT COUNT & AUTO Routine 01/06/2019 3:57 Results for this DIFFERENTIAL AM CDT procedure are in the results section. BASIC METABOLIC PANEL Routine 01/06/2019 3:57 Results for this (7) AM CDT procedure are in the results section. CBC W/PLT COUNT & AUTO Routine 01/05/2019 5:09 Results for this DIFFERENTIAL AM CDT procedure are in the results section. CBC W/PLT COUNT & AUTO Routine 01/05/2019 5:09 Results for this DIFFERENTIAL AM CDT procedure are in the results section. BASIC METABOLIC PANEL Routine 01/05/2019 5:09 Results for this (7) AM CDT procedure are in the results section. (CELLAVISION MANUAL Routine 01/04/2019 5:23 Results for this DIFF) AM CDT procedure are in the results section. CBC W/PLT COUNT & AUTO Routine 01/04/2019 5:23 Results for this DIFFERENTIAL AM CDT procedure are in the results section. CBC W/PLT COUNT & AUTO Routine 01/04/2019 5:23 Results for this DIFFERENTIAL AM CDT procedure are in the results section. BASIC METABOLIC PANEL Routine 01/04/2019 5:23 Results for this (7) AM CDT procedure are in the results section. TRANSFUSION SERVICE 01/02/2019 5:51 REPORT - SCAN PM CDT RHYTHM STRIP - SCAN 01/02/2019 12:51 PM CDT PREPARE LEUKO-REDUCED Routine 01/01/2019 11:54 Results for this RBC PM CDT procedure are in the results section. TRANSFUSION SERVICE 01/01/2019 5:51 REPORT - SCAN PM CDT (CELLAVISION MANUAL Routine 01/01/2019 8:12 Results for this DIFF) AM CDT procedure are in the results section. CBC WITH PLATELET COUNT Routine 01/01/2019 8:12 Results for this + MANUAL DIFF AM CDT procedure are in the results section. BASIC METABOLIC PANEL Routine 01/01/2019 8:12 Results for this (7) AM CDT procedure are in the results section. CBC W/PLT+MANUAL DIFF Routine 01/01/2019 8:12 Results for this AM CDT procedure are in the results section. TRANSFUSE LEUKO-REDUCED Routine 12/31/2018 8:13 RED BLOOD CELLS PM CDT TRANSFUSE LEUKO-REDUCED Routine 12/31/2018 5:19 RED BLOOD CELLS PM CDT ANTIBODY IDENTIFICATION Routine 12/31/2018 2:19 Results for this PM CDT procedure are in the results section. HEMOGLOBIN AND STAT 12/31/2018 11:38 Results for this HEMATOCRIT AM CDT procedure are in the results section. TYPE AND SCREEN, Routine 12/31/2018 7:49 Results for this AUTOMATED AM CDT procedure are in the results section. (CELLAVISION MANUAL Routine 12/31/2018 5:34 Results for this DIFF) AM CDT procedure are in the results section. CBC W/PLT COUNT & AUTO Routine 12/31/2018 5:34 Results for this DIFFERENTIAL AM CDT procedure are in the results section. BASIC METABOLIC PANEL Routine 12/31/2018 5:34 Results for this (7) AM CDT procedure are in the results section. CBC W/PLT COUNT & AUTO Routine 12/31/2018 5:34 Results for this DIFFERENTIAL AM CDT procedure are in the results section. REPORT OF PROCEDURE - 10/14/2018 11:00 ENDOSCOPY SCAN AM PROTEOMICS SCIENTIST HEMOGLOBIN Routine 10/06/2018 10:59 Results for this AM [employer]OTEOM[employer] SCIENTIST procedure are in the results section. VENOUS DOPPLER LEG, Routine 10/04/2018 3:00 Results for this RIGHT PM [employer]OTEOM[employer] SCIENTIST procedure are in the results section. (CELLAVISION MANUAL Routine 10/04/2018 5:07 Results for this DIFF) AM [employer]OTEOM[employer] SCIENTIST procedure are in the results section. CBC W/PLT COUNT & AUTO Routine 10/04/2018 5:07 Results for this DIFFERENTIAL AM [employer]OTEOM[employer] SCIENTIST procedure are in the results section. CBC W/PLT COUNT & AUTO Routine 10/04/2018 5:07 Results for this DIFFERENTIAL AM [employer]OTEOM[employer] SCIENTIST procedure are in the results section. BASIC METABOLIC PANEL Routine 10/04/2018 5:07 Results for this (7) AM PROTEOMICS SCIENTIST procedure are in the results section. (CELLAVISION MANUAL Routine 10/03/2018 6:39 Results for this DIFF) AM [employer]OTEOMICS SCIENTIST procedure are in the results section. CBC W/PLT COUNT & AUTO Routine 10/03/2018 6:39 Results for this DIFFERENTIAL AM [employer]OTEOMICS SCIENTIST procedure are in the results section. CBC W/PLT COUNT & AUTO Routine 10/03/2018 6:39 Results for this DIFFERENTIAL AM [employer]OTEOMICS SCIENTIST procedure are in the results section. BASIC METABOLIC PANEL Routine 10/03/2018 6:39 Results for this (7) AM [employer]OTEOMICS SCIENTIST procedure are in the results section. (CELLAVISION MANUAL Routine 10/02/2018 5:51 Results for this DIFF) AM [employer]OTEOMICS SCIENTIST procedure are in the results section. CBC W/PLT COUNT & AUTO Routine 10/02/2018 5:51 Results for this DIFFERENTIAL AM [employer]OTEOMICS SCIENTIST procedure are in the results section. BASIC METABOLIC PANEL Routine 10/02/2018 5:51 Results for this (7) AM [employer]OTEOMICS SCIENTIST procedure are in the results section. CBC W/PLT COUNT & AUTO Routine 10/02/2018 5:51 Results for this DIFFERENTIAL AM [employer]OTEOMICS SCIENTIST procedure are in the results section. FERRITIN Routine 10/02/2018 5:51 Results for this AM PROTEOMICS SCIENTIST procedure are in the results section. TRANSFUSION SERVICE 09/30/2018 6:00 REPORT - SCAN PM PROTEOMICS SCIENTIST (CELLAVISION MANUAL Routine 09/30/2018 4:16 Results for this DIFF) AM PROTEOMICS SCIENTIST procedure are in the results section. CBC W/PLT COUNT & AUTO Routine 09/30/2018 4:16 Results for this DIFFERENTIAL AM [employer]OTEOMICS SCIENTIST procedure are in the results section. COMPREHENSIVE METABOLIC Routine 09/30/2018 4:16 Results for this PANEL AM [employer]OTEOMICS SCIENTIST procedure are in the results section. CBC W/PLT COUNT & AUTO Routine 09/30/2018 4:16 Results for this DIFFERENTIAL AM [employer]OTEOMICS SCIENTIST procedure are in the results section. HEPATIC FUNCTION PANEL Routine 09/30/2018 4:16 Results for this AM [employer] SCIENTIST procedure are in the results section. PREPARE LEUKO-REDUCED Routine 09/29/2018 11:54 Results for this RBC PM [employer]OTEOMICS SCIENTIST procedure are in the results section. TRANSFUSION SERVICE 09/29/2018 6:00 REPORT - SCAN PM PROTEOMICS SCIENTIST (CELLAVISION MANUAL Routine 09/29/2018 4:17 Results for this DIFF) AM PROTEOMICS SCIENTIST procedure are in the results section. CBC W/PLT COUNT & AUTO Routine 09/29/2018 4:17 Results for this DIFFERENTIAL AM PROTEOMICS SCIENTIST procedure are in the results section. CBC W/PLT COUNT & AUTO Routine 09/29/2018 4:17 Results for this DIFFERENTIAL AM [employer]OTEOMICS SCIENTIST procedure are in the results section. HEPATIC FUNCTION PANEL Routine 09/29/2018 4:17 Results for this AM PROTEOMICS SCIENTIST procedure are in the results section. BASIC METABOLIC PANEL Routine 09/29/2018 4:17 Results for this (7) AM [employer]OTEOMICS SCIENTIST procedure are in the results section. TRANSFUSE LEUKO-REDUCED Routine 09/29/2018 12:06 RED BLOOD CELLS AM PROTEOMICS SCIENTIST TRANSFUSE LEUKO-REDUCED Routine 09/28/2018 7:20 RED BLOOD CELLS PM [employer]OTEOMICS SCIENTIST ANTIBODY IDENTIFICATION Routine 09/28/2018 10:52 Results for this AM [employer]OTEOMICS SCIENTIST procedure are in the results section. TYPE AND SCREEN, Routine 09/28/2018 4:31 Results for this AUTOMATED AM [employer]OTEOM[employer] SCIENTIST procedure are in the results section. HEPATIC FUNCTION PANEL Routine 09/28/2018 4:31 Results for this AM [employer]OTEOMICS SCIENTIST procedure are in the results section. BASIC METABOLIC PANEL Routine 09/28/2018 4:31 Results for this (7) AM [employer]OTEOMICS SCIENTIST procedure are in the results section. (CELLAVISION MANUAL Routine 09/28/2018 12:10 Results for this DIFF) AM [employer]OTEOMICS SCIENTIST procedure are in the results section. CBC W/PLT COUNT & AUTO Routine 09/28/2018 12:10 Results for this DIFFERENTIAL AM [employer]OTEOMICS SCIENTIST procedure are in the results section. CBC W/PLT COUNT & AUTO Routine 09/28/2018 12:10 Results for this DIFFERENTIAL AM [employer]OTEOMICS SCIENTIST procedure are in the results section. TRANSFUSE LEUKO-REDUCED Routine 09/26/2018 5:27 Symptomatic anemia RED BLOOD CELLS PM [employer]OTEOM[employer] SCIENTIST TRANSFUSE LEUKO-REDUCED Routine 09/26/2018 5:27 Symptomatic anemia RED BLOOD CELLS PM [employer]ICS SCIENTIST TRANSFUSE LEUKO-REDUCED Routine 09/26/2018 5:24 Symptomatic anemia RED BLOOD CELLS PM [employer]OTE[employer]ICS SCIENTIST TRANSFUSE LEUKO-REDUCED Routine 09/26/2018 5:24 Symptomatic anemia RED BLOOD CELLS PM [employer]OTE[employer]ICS SCIENTIST TRANSFUSE LEUKO-REDUCED Routine 09/26/2018 5:23 Hb-SS disease RED BLOOD CELLS PM [employer] SCIENTIST without crisis (HCC) TRANSFUSE LEUKO-REDUCED Routine 09/26/2018 5:23 Hb-SS disease RED BLOOD CELLS PM [employer]OTEOMICS SCIENTIST without crisis (HCC) after 03/03/2018 Results RHYTHM STRIP - SCAN (01/10/2019 4:20 PM CDT)Only the most recent of2 resultswithin the time period is included. Narrative Performed At CT chest for pulmonary embolus (01/08/2019 9:42 AM CDT) Specimen Narrative Performed At FINAL REPORT Free & Clear [facility] INDICATION: Acute chest pain. COMPARISON: Chest radiograph January 07, 2019 TECHNIQUE: Chest CT exam WITH intravenous contrast, PE protocol. The exam was performed according to our department dose-optimization protocol, which includes automated exposure control, adjustments of mA and kV according to patient size. Iterative reconstructions are also sometimes employed. FINDINGS: No pulmonary embolus is demonstrated. Evaluation of the pulmonary arteries is adequate to the segmental level. Main pulmonary artery is normal in caliber. No dissection of the thoracic aorta is demonstrated. The ascending thoracic aorta is not well evaluated because of cardiac motion. The heart is enlarged with the left atrium AP dimension 5.2 cm. There is a right chest port that terminates at the cavoatrial junction. The central pulmonary veins are engorged but there is no pulmonary edema or pleural effusion. No pneumonia or bronchiectasis is demonstrated. Central airways are clear. No supraclavicular mediastinal, or hilar lymphadenopathy is demonstrated. Thyroid gland, esophagus are unremarkable. Liver is enlarged and with lobulated and slightly irregular contour. Osseous structures unremarkable. IMPRESSION: No pulmonary embolism. Cardiomegaly. Hepatomegaly with irregular contour suggesting cirrhosis. Signed: Miguel Denson MD Report Verified Date/Time:01/08/2019 09:54:01 Reading Location: [facility] C013Y CT Body Reading Room Procedure Note Interface, External Ris In - 01/08/2019 9:56 AM CDT FINAL REPORT INDICATION: Acute chest pain. COMPARISON: Chest radiograph January 07, 2019 TECHNIQUE: Chest CT exam WITH intravenous contrast, PE protocol. The exam was performed according to our department dose-optimization protocol, which includes automated exposure control, adjustments of mA and kV according to patient size. Iterative reconstructions are also sometimes employed. FINDINGS: No pulmonary embolus is demonstrated. Evaluation of the pulmonary arteries is adequate to the segmental level. Main pulmonary artery is normal in caliber. No dissection of the thoracic aorta is demonstrated. The ascending thoracic aorta is not well evaluated because of cardiac motion. The heart is enlarged with the left atrium AP dimension 5.2 cm. There is a right chest port that terminates at the cavoatrial junction. The central pulmonary veins are engorged but there is no pulmonary edema or pleural effusion. No pneumonia or bronchiectasis is demonstrated. Central airways are clear. No supraclavicular mediastinal, or hilar lymphadenopathy is demonstrated. Thyroid gland, esophagus are unremarkable. Liver is enlarged and with lobulated and slightly irregular contour. Osseous structures unremarkable. IMPRESSION: No pulmonary embolism. Cardiomegaly. Hepatomegaly with irregular contour suggesting cirrhosis. Signed: Miguel Denson MD Report Verified Date/Time: 01/08/2019 09:54:01 Reading Location: [facility] B1 C013Y CT Body Reading Room Performing Organization Address City/State/Zipcode Phone Number [facility] Troponin I (01/08/2019 1:04 AM CDT)Only the most recent of2 resultswithin the time period is included. Troponin I <0.01 0.00 - 0.03 ng/mL [facility] Specimen Blood Narrative Performed At Troponin I (TnI) levels must be interpreted [facility] in the context of the presenting symptoms and the clinical findings. Elevated TnI levels indicate myocardial damage, but are not specific for ischemic heart disease. Elevated TnI levels are seen in patients with other cardiac conditions (including myocarditis and congestive heart failure), and slight TnI elevations occur in patients with other conditions, including sepsis, renal failure, acidosis, acute neurological disease, and persistent tachyarrhythmia. Performing Organization Address City/[facility] Cent[facility]ode Phone Number [address] [address] [phone] CENTER Creatine Kinase (CK) (01/08/2019 1:04 AM CDT)Only the most recent of2 resultswithin the time period is included. Total CK 7 (L) 29 - 200 U/L [facility] Specimen Blood Performing Organization Address City/State/Zipcode Phone Number [facility] [address] [place] [phone] [place] ECG 12 lead (01/07/2019 6:28 PM CDT) Specimen Narrative Performed At Ventricular Rate 99 BPM GE MUSE Atrial Rate 99 BPM P-R Interval 172 ms QRS Duration 80 ms Q-T Interval 372 ms QTC Calculation(Bazett) 477 ms P Reedley 46 degrees R Reedley 17 degrees T Reedley 40 degrees Sinus rhythm Normal ECG When compared with ECG of 05-JUN-2017 20:52, No significant change was found Confirmed by Wade CASTILLO MICHAEL ([id number]) on 01/08/2019 7:50:14 AM Procedure Note Interface, External Ris In - 01/08/2019 7:50 AM CDT Ventricular Rate 99 BPM Atrial Rate 99 BPM P-R Interval 172 ms QRS Duration 80 ms Q-T Interval 372 ms QTC Calculation(Bazett) 477 ms P Reedley 46 degrees R Reedley 17 degrees T Reedley 40 degrees Sinus rhythm Normal ECG When compared with ECG of 05-JUN-2017 20:52, No significant change was found Confirmed by Wade CASTILLO MICHAEL ([id number]) on 01/08/2019 7:50:14 AM Performing Organization Address City/State/Zipcode Phone Number GE MUSE XR chest 1 view portable / bedside (01/07/2019 8:18 AM CDT) Specimen Narrative Performed At FINAL REPORT GE RIS TECHNIQUE: Frontal chest radiograph dated 01/07/2019. CLINICAL HISTORY: SOB COMPARISON STUDY: Chest radiographs dated 11/16/2017 IMPRESSION: Right-sided MediPort is unchanged in position. A 7 mm nodule seen in the right lung base and an 8 mm nodule seen in the left lung base. These are not seen on the prior radiograph and CT scan is recommended. No pleural effusion or pneumothorax. Cardiomediastinal silhouette is stable in size. No pulmonary edema. Bones appear osteopenic for patient's stated age. Signed: Mckenzie Ye MD Report Verified Date/Time:01/07/2019 08:40:21 Reading Location: [facility] Radiology Reading Room Procedure Note Interface, External Ris In - 01/07/2019 8:45 AM CDT FINAL REPORT TECHNIQUE: Frontal chest radiograph dated 01/07/2019. CLINICAL HISTORY: SOB COMPARISON STUDY: Chest radiographs dated 11/16/2017 IMPRESSION: Right-sided MediPort is unchanged in position. A 7 mm nodule seen in the right lung base and an 8 mm nodule seen in the left lung base. These are not seen on the prior radiograph and CT scan is recommended. No pleural effusion or pneumothorax. Cardiomediastinal silhouette is stable in size. No pulmonary edema. Bones appear osteopenic for patient's stated age. Signed: Mckenzie Ye MD Report Verified Date/Time: 01/07/2019 08:40:21 Reading Location: [facility] Radiology Reading Room Performing Organization Address City/State/Zipcode Phone Number GE RIS Manual Differential (01/06/2019 3:57 AM CDT)Only the most recent of10 resultswithin the time period is included. % Neutros 57 % [facility] % Lymphs 19 % [facility] % Monos 18 % [facility] % Eos 6 % [facility] # Neutros 11.51 (H) 1.56 - 6.13 K/ul [facility] # Lymphs 3.84 (H) 1.18 - 3.74 K/ul [facility] # Monos 3.64 (H) 0.24 - 0.36 K/uL [facility] # Eos 1.21 (H) 0.04 - 0.36 K/uL [facility] Total Counted 100 [facility] nRBC (manual) 9 (H) 0 - 0 /100 WBC [facility] Smudge Cells Present [facility] Giant Platelet Present [facility] Polychromasia 2+ moderate [facility] Anisocytosis 2+ moderate [facility] Macrocytes 2+ moderate [facility] Sickle Cells 1+ few [facility] Artifact Present [facility] Platelet Conc Adequate [facility] Specimen Blood Narrative Performed At Received comment: [facility] User comments: Slide comments: Performing Organization Address City/State/Zipcode Phone Number [facility] [address] [place] [address] [phone] CENTER CBC with platelet count + automated diff (01/06/2019 3:57 AM CDT)Only the most recent of10 resultswithin the time period is included. WBC 20.2 (H) 3.5 - 10.5 K/L [facility] RBC 2.32 (L) 3.93 - 5.22 M/L [facility] Hemoglobin 7.9 (L) 11.2 - 15.7 GM/DL [facility] Hematocrit 24.5 (L) 34.1 - 44.9 % [facility] MCV 105.6 (H) 79.4 - 94.8 fL [facility] MCH 34.1 (H) 25.6 - 32.2 pg [facility] MCHC 32.2 32.2 - 35.5 GM/DL [facility] RDW 22.3 (H) 11.7 - 14.4 % [facility] Platelets 219 150 - 450 K/CU MM [facility] MPV 11.6 9.4 - 12.3 fL [facility] nRBC 7 (H) 0 - 0 /100 WBC [facility] Specimen Blood Performing Organization Address City/State/Zipcode Phone Number [facility] [address] [place] [address] [phone] CENTER Basic Metabolic Panel (01/06/2019 3:57 AM CDT)Only the most recent of10 resultswithin the time period is included. Sodium 140 136 - 145 meq/L [facility] Potassium 4.2 3.5 - 5.1 meq/L [facility] Chloride 96 (L) 98 - 107 meq/L [facility] CO2 34 (H) 22 - 29 meq/L [facility] BUN 10 7 - 21 mg/dL [facility] Creatinine 0.58 0.57 - 1.25 mg/dL [facility] Glucose 95 70 - 105 mg/dL [facility] Calcium 9.6 8.4 - 10.2 mg/dL [facility] EGFR 140Comment: ESTIMATED GFR IS mL/min/1.[address] [facility] NOT ACCURATE CREATININE [facility] CLEARANCE IN PREDICTING GLOMERULAR FILTRATION RATE. ESTIMATED GFR IS NOT APPLICABLE FOR DIALYSIS PATIENTS. Specimen Blood Narrative Performed At Specimen slightly icteric [facility] Performing Organization Address City/[facility]/Zipcode Phone Number [facility] MEDICAL [address] [place] [address] CENTER TRANSFUSION SERVICE REPORT - SCAN (01/02/2019 5:51 PM CDT)Only the most recent of4 resultswithin the time period is included. Narrative Performed At Prepare Leuko-Red RBC (01/01/2019 11:54 PM CDT)Only the most recent of2 resultswithin the time period is included. Unit ABO O Pos [employer]AFET[employer] TX UNIT NUMBER [id number] SAFETRACE TX Status WORK IN PROGRESS SAFETRACE TX Blood Bank Product RED BLOOD CELLS [employer]AFET[employer]ACE TX PRODUCT CODE [id number] SAFETRACE TX Unit ABO O Pos SAFETRACE TX UNIT NUMBER [id number] SAFETRACE TX Status WORK IN PROGRESS SAFETRACE TX Blood Bank Product RED BLOOD CELLS SAFETRACE TX PRODUCT CODE [id number] SAFETRACE TX CROSSMATCH COMPATIBLE SAFETRACE TX Unit ABO O Pos SAFETRACE TX UNIT NUMBER [id number] [place] Status [place]_TIMEINCHART [place] Blood Bank Product RED BLOOD CELLS [place] PRODUCT CODE [id number] [place] CROSSMATCH COMPATIBLE [place] Unit ABO O Pos S[place] UNIT NUMBER [id number] [place] Status [place]_TIMEINCHART [place] Blood Bank Product RED BLOOD CELLS [place] PRODUCT CODE [id number] [place] Specimen Other Performing Organization Address City/[facility]/Zipcode Phone Number [place] CBC with platelet count + manual diff (01/01/2019 8:12 AM CDT) WBC 22.9 (H) 3.5 - 10.5 K/L [facility] RBC 2.28 (L) 3.93 - 5.22 M/L [facility] Hemoglobin 7.7 (L) 11.2 - 15.7 GM/DL [facility] Hematocrit 23.2 (L) 34.1 - 44.9 % [facility] MCV 101.8 (H)Comment: Discordant 79.4 - 94.[address] [facility] results compared to previous MEDICAL CENTER result; clinical correlation required. MCH 33.8 (H) 25.6 - 32.2 pg [facility] MCHC 33.2 32.2 - 35.5 GM/DL [facility] RDW 23.3 (H) 11.7 - 14.4 % [facility] Platelets 251 150 - 450 K/CU MM [facility] MPV 10.7 9.4 - 12.3 fL [facility] nRBC 52 (H) 0 - 0 /100 WBC [facility] Specimen Blood Performing Organization Address City/[facility] Cent[facility]ode Phone Number [facility] [address], [place] [phone] CENTER Transfuse Leuko-Red RBC (12/31/2018 8:13 PM CDT)Only the most recent of15 resultswithin the time period is included.Antibody identification (12/31/2018 2 :19 PM CDT)Only the most recent of2 resultswithin the time period is included. ANTIBODY ID ([place]) Anti-E [place] Anti-c Comment: previously identified Cw, S, Bg, cold, warm, IgG Antibody Consult SIGNED OUT [place] Comment: Anti E causes RBC injury, transfuse E negative RBCs.Anti c causes RBC injury , transfuse c negative RBCs.Previous anti S causes RBC injury no longer detected , continue to transfuse S negative RBCs.Previo us anti Cw no longer detected, continue to transfuse Cw negative RBCs.Electronic Signature: Judah Ortez M.D. Specimen Performing Organization Address City/[facility] Centercode Phone Number [place] Hemoglobin and hematocrit (12/31/2018 11:38 AM CDT) Hemoglobin 5.5 (LL) 11.2 - 15.7 GM/DL [facility] Hematocrit 17.1 (L) 34.1 - 44.9 % [facility] Specimen Blood Performing Organization Address City/[facility] Centercode Phone Number [facility] [address] [place] [address] [phone] CENTER Type and screen, automated (12/31/2018 7:49 AM CDT)Only the most recent of2 resultswithin the time period is included. ABO/RH AUTOMATED (BEAKER) O [facility] Ab Scrn [facility] Specimen Blood Performing Organization Address City/[facility] Centercode Phone Number [address] [phone] EKG-SCANNED (10/14/2018 11:00 AM PROTEOMICS SCIENTIST) Narrative Performed At Hemoglobin (10/06/2018 10:59 AM PROTEOMICS SCIENTIST) Hemoglobin 7.1 (L) 11.2 - 15.7 GM/DL [facility] Specimen Blood Performing Organization Address City/[facility] Centercode Phone Number [address] [phone] CENTER Venous doppler leg, right (10/04/2018 3:00 PM PROTEOMICS SCIENTIST) Ejection Fraction [facility] Specimen Impressions Performed At Right Impression [facility] 1. There is no deep venous obstruction in the common femoral, profunda femoral, femoral, popliteal, posterior tibial or peroneal veins. 2. There is no superficial venous obstruction in the great saphenous vein. Conclusions Summary Venous duplex imaging and compression of the right lower extremity was performed. The veins were adequately visualized. The right venous system was patent and compressible with no evidence of thrombus. The venous Doppler waveforms were phasic with respiration . Signature Velocities are measured in cm/s ; Diameters are measured in cm Narrative Performed At [facility] - Lower Extremities DVT Study [facility] Demographics Patient NameSMITEduardo, RODRIGODate of Study 10/04/2018 DIANA Age 38 Visit [id number] GenderFemale Date of 1980 Referring Neal [facility] [id number] Physician Sap Bpc Developer Physician RITO Manzanares Procedure Type of Study: Veins: Lower Extremities DVT Study, VENOUS DOPPLER LEG, RIGHT. Indications for Study:Pain. Patient Status:Routine. Study Location:Vascular Lab. Technical Quality:Adequate visualization. Risk Factors History of Disease + + + + !Diagnosis !Date !Comments ! + + + + !Stroke! ! ! + + + + Procedure Note Interface, External Ris In - 10/05/2018 10:51 AM PROTEOMICS SCIENTIST [facility] - Lower Extremities DVT Study Demographics Patient Name RODRIGO BERG Date of Study 10/04/2018 DIANA Age 38 Visit Number [id number] Gender Female Accession Number [id number] Date of 1980 Referring Neal Lezama MD Room Number [id number] Physician Sap Bpc Developer Colt Zamudio Interpreting Physician RITO Mattson Procedure Type of Study: Veins: Lower Extremities DVT Study, VENOUS DOPPLER LEG, RIGHT. Indications for Study:Pain. Patient Status:Routine. Study Location:Vascular Lab. Technical Quality:Adequate visualization. Risk Factors History of Disease + + + + !Diagnosis !Date !Comments ! + + + + !Stroke ! ! ! + + + + Impressions Right Impression 1. There is no deep venous obstruction in the common femoral, profunda femoral, femoral, popliteal, posterior tibial or peroneal veins. 2. There is no superficial venous obstruction in the great saphenous vein. Conclusions Summary Venous duplex imaging and compression of the right lower extremity was performed. The veins were adequately visualized. The right venous system was patent and compressible with no evidence of thrombus. The venous Doppler waveforms were phasic with respiration . Signature Velocities are measured in cm/s ; Diameters are measured in cm Performing Organization Address City/[facility] Centercode Phone Number [facility] Ferritin (10/02/2018 5:51 AM PROTEOMICS SCIENTIST) Ferritin 26,952 (H) 5 - 275 ng/mL [facility] Specimen Blood Performing Organization Address City/[facility]/Zipcode Phone Number [facility] [address] [place] [address] CENTER Hepatic function panel (09/30/2018 4:16 AM PROTEOMICS SCIENTIST)Only the most recent of3 resultswithin the time period is included. Protein, Total 7.9 6.0 - 8.3 gm/dL [facility] Albumin 3.2 (L) 3.5 - 5.0 g/dL [facility] Total Bilirubin 2.5 (H) 0.2 - 1.2 mg/dL [facility] Bilirubin, Direct 1.2 (H) 0.1 - 0.5 mg/dL [facility] Alkaline Phosphatase 183 (H) 40 - 150 U/L [facility] AST 129 (H) 5 - 34 U/L [facility] ALT 72 (H) 6 - 55 U/L [facility] Specimen Blood Performing Organization Address City/State/Zipcode Phone Number [facility] [address], [place] [phone] [place] Comprehensive metabolic panel (09/30/2018 4:16 AM PROTEOMICS SCIENTIST) Protein, Total 7.9 6.0 - 8.3 gm/dL [facility] Albumin 3.2 (L) 3.5 - 5.0 g/dL [facility] Alkaline Phosphatase 183 (H) 40 - 150 U/L [facility] Total Bilirubin 2.5 (H) 0.2 - 1.2 mg/dL [facility] Sodium 141 136 - 145 meq/L [facility] Potassium 3.8 3.5 - 5.1 meq/L [facility] Chloride 104 98 - 107 meq/L [facility] CO2 28 22 - 29 meq/L [facility] BUN 12 7 - 21 mg/dL [facility] Creatinine 0.69 0.57 - 1.25 mg/dL [facility] Glucose 97 70 - 105 mg/dL [facility] Calcium 8.4 8.4 - 10.2 mg/dL [facility] AST 129 (H) 5 - 34 U/L [facility] ALT 72 (H) 6 - 55 U/L [facility] EGFR 115Comment: ESTIMATED mL/min/1.73 sq m [facility] GFR IS NOT ACCURATE [facility] CREATININE CLEARANCE IN PREDICTING GLOMERULAR FILTRATION RATE. ESTIMATED GFR IS NOT APPLICABLE FOR DIALYSIS PATIENTS. Specimen Blood Performing Organization Address City/State/Zipcode Phone Number [facility] [address], [place] [phone] CENTER after 03/03/2018 Insurance Payer Benefit Plan / Subscriber ID Type Phone Address Group [facility] - [employer] MEDICARE xxxxxxxxx MEDICARE MGD CARE HMO MEDICAID - MEDICAID [facility] COMM STAR xxxxxxxxx Medicaid Contracted MGD CARE PLAN Advance Directives For more information, please contact:[place] [id number] [place], [place] [phone] Code Status Date Activated Date Inactivated Comments Full Code 09/27/2018 10:42 PM 12/30/2018 3:56 AM This code status was determined by: Patient Full Code 01/29/2018 3:26 PM 02/08/2018 7:05 [...]
--- OUTSIDE RECORDS SUMMARY | 2019-03-04 11:46 | XMS REPORT | Continuity of Care Document ---
:1980 Author Organization [facility] Care Team Providers Name Role Phone [facility] Information [employer] Unavailable Unavailable Problems Problem Status Onset Classification Date Comments Source Date Reported SICKLE CELL CRISIS Active 09/08/[address] Final: 09/13/2014 [facility] Aplastic anemia Resolved Problem 09/13/2014 [facility] CVA - Resolved Problem 09/13/2014 [facility] Cerebrovascular [facility] Sickle cell anemia Resolved Problem 09/13/2014 [facility] TIA Resolved Problem 09/13/2014 [facility] HB-SS DISEASE W Active [facility] Medications Medication Details Route Status Patient Ordering Order Source Instructions Provider Date 12 HR Oxymorphone 30 mg=1 tab, Active [facility] Hydrochloride 30 PO, Q12H, 0 2014 Medical MG Extended Refill(s) Center Release Tablet [Opana] Lovenox 40 mg, 0.4 mL, No Longer [facility] Route: SUB-Q, Active 2014 [facility] Drug form: INJ, Center otkgL93W, Dosing Weight 70.591, kg, Start date: 09/10/14 19:00:00, Duration: 30 day, Stop date: 10/09/14 19:00:00Notes: (Same as: Lovenox) Promethazine 12.5 mg, 0.5 No Longer 09/10[facility] mL, Route: Active 2014 [facility] IVPB, Drug Center form: INJ, Q4H, Dosing Weight 70.591, kg, PRN Nausea & Vomiting, Start date: 09/10/14 17:52:00, Duration: 30 day, Stop date: 10/10/14 17:51:00Notes: Do not give IV push. (Same as: Phenergan) Hydromorphone 15 mg, 30 mL, No Longer [facility] Route: IV, Active 2014 Medical Initial Loading Center Dose: 0.4mg, BLAST HOLE DRILLER Dose: 0.2 mg, BLAST HOLE DRILLER Lockout: 10 minutes, Continuous Basal Rate: 0 mg, 4 Hour Limit (In MG): 3, Drug Form: INJ, Continuous, Start date: 09/10/14 11:00:00, Duration: 30 day, Stop date: 10/10/14 10:...Notes: (Same as: Dilaudid) conc=0.5 mg/ml Hydromorphone BLAST HOLE DRILLER Dose: ;Delay: ;Basal: Naloxone 0.04 mg, 0.1 [...] Carolann MG / Hydrocodone PO, Drug Form: 2014 Medical Bitartrate 5 MG TAB, Dosing Center [...] 2 mg, Route: Inactive Carolann IV, ONCE, 2015 Medical Dosing Weight Center 70, kg, Start date: 09/09/14 3:43:00, Stop date: 09/09/14 3:43:00 Diphenhydramine 1 appl, Route: Inactive Carolann Hydrochloride 20 TOP, ONCE, Drug 2015 Medical MG/ML Topical form: CRM, Center Cream [Benadryl] Start date: 09/09/14 3:43:00, Stop date: 09/09/14 3:43:00 Phenergan 12.5 mg, Route: Inactive [facility] IVPB, ONCE, 2014 Medical Dosing Weight Center [...] 23:41:00 Hydromorphone 2 mg, Route: No Longer [facility] IVP, ONCE, Active 2014 Medical Dosing Weight Center 70, kg, Priority: STAT, Start date: 09/08/14 23:41:00, Stop date: 09/08/14 23:41:00 Saline Flush 0.9% 10 mL, Route: No Longer [facility] IVP, Drug Form: Active 2014 Medical INJ, Dosing Center Weight 70, kg, PRN, PRN Line Flush, Start date: 09/08/14 23:41:00, Duration: 30 day, Stop date: 10/08/14 23:40:00Notes: Same as: BD Posiflush Sterile Allergies, Adverse Reactions, Alerts Substance Category Reaction Severity Reaction Status Date Comments Source type Reported morphine Assertion Drug Active [facility] Stadol Assertion Drug Active [facility] Toradol Assertion Drug Active [facility] traMADol Assertion Drug Active [facility] Zofran Assertion Drug Active [facility] [place] [facility] Immunizations No Data Provided for This Section Results Order Name Results Value Reference Date Interpretation Comments Source Range CHEM PANEL LDH 507 98 - 192 09/11 [facility] ELECTROLYTE AGAP 10.8 10.0 - 09/11 [facility] 20.0 [facility] ELECTROLYTE Calcium Lvl 8.4 8.5 - 10.5 09/11 [facility] ELECTROLYTE CO2 27 24 - 32 09/11 [facility] ELECTROLYTE Chloride Lvl 108 95 - 109 09/11 [facility] ELECTROLYTE eGFR 130 09/11 <sup>3</sup>R [facility] esult Medical Comment: The Center eGFR is calculated using the CKD-EPI formula. In most young, healthy individuals the eGFR will be >90 mL/min/1.73m2 . The eGFR declines with age. An eGFR of 60-89 may be normal in some populations, particularly the elderly, for whom the CKD-EPI formula has not been extensively validated. Use of the eGFR is not recommended in the following populations:& lt;br/>
I ndividuals with unstable creatinine concentration s, including patients and those with serious co-morbid conditions.<b r/>
Patie nts with extremes in muscle mass or diet.

The data above are obtained from the National Kidney Disease Education Program (NKDEP) which additionally recommends that when the eGFR is used in patients with extremes of body mass index for purposes of drug dosing, the eGFR should be multiplied by the estimated BMI. ELECTROLYTE BUN 4 7 - 22 09/11 [facility] ELECTROLYTE Glucose Lvl 82 70 - 99 09/11 <sup>6</sup>I [facility] nterpretive Medical Data: Adult Center reference range values reflect the clinical guidelines
of the [place] [employer]. ELECTROLYTE Sodium Lvl 142 135 - 145 09/11 [facility] ELECTROLYTE Creatinine 0.7 0.5 - 1.4 09/11 [facility] ELECTROLYTE Potassium 3.8 3.5 - 5.1 09/11 [facility] HEMATOLOGY Retic Auto 16.5 0.5 - 1.5 09/11 [facility] HEMATOLOGY RDW 25.5 11.5 - 09/11 [facility] [place] 14.5 /2014 [facility] HEMATOLOGY MPV 8.6 7.4 - 10.4 09/11 /2014 [facility] HEMATOLOGY Platelet 213 133 - 450 09/11 /2014 [facility] HEMATOLOGY Hct 19.8 36.0 - 09/11 [place] 48.0 /2014 [facility] HEMATOLOGY Hgb 6.7 12.0 - 09/11 <sup>9</sup>R [place] 16.0 /2014 [facility] Medical Comment: Center Critical Result(s) called to Lexi Hendrix at 09/11/2014 03:23 by ORDAZ. Read back OK. HEMATOLOGY MCV 97.9 80.0 - 09/11 [place] 98.0 /2014 [facility] HEMATOLOGY MCHC 34.0 32.0 - 09/11 [place] 36.0 /2014 [facility] HEMATOLOGY MCH 33.3 27.0 - 09/11 [place] 31.0 /2014 [facility] HEMATOLOGY WBC X 10x3 14.1 3.7 - 10.4 09/11 /2014 [facility] HEMATOLOGY RBC X 10x6 2.02 4.20 - 09/11 [place] 5.40 /2014 [facility] BLOOD BANK Antibody Positive 1 09/10 <sup>1</sup>R [facility] RESULTS Scrn (09/10/14 8:01 AM) /2014 [facility] Medical Comment: Center 09/10/2014 09:24 [id number]
"Significant Findings of Positive Antibody Screen called to Magan Stinson at 0920 by SI. Read Back OK" BLOOD BANK ABO/Rh O POS 09/10 [facility] RESULTS /2014 [facility] BLOOD BANK Path MEGHAN This 09/10 [facility] RESULTS patient Medical a positive Center Direct Antiglobuli n Test (MEGHAN) with IgG [...] expected to have decreased in vivo survival. The patients electronic medical record has been reviewed for relevant information . I have reviewed the test results and concur with the resident's interpretat ion. 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 The anti-E and anti-c are directed against the [...] hemolytic disease of the and hemolytic transfusion reactions. The anti-Cw antibody is directed against an antigen of the "Rh" blood group system. It can be either IgM or IgG, naturally-o ccurring or formed as a result of RBC sensitizati on via prior transfusion . The anti-Cw antibody is considered a clinically significant antibody since it has been associated with hemolytic transfusion reactions. The patient also has a history of anti-Bg(a). Anti-Bg(a) antibody is directed against Bg(a), a low-inciden ce RBC-reactiv e HLA antigen, also known as HLA-B7. HLA antibodies are often found in patients who receive multiple transfusion s and multiparous women. Generally, the antibodies to these antigens are not considered clinically significant with regard to RBC transfusion therapy because hemolytic transfusion reactions are rarely encountered . Of note, the patient has a history of sickle cell disease. The MEGHAN is weakly positive with a negative eluate. Should RBC transfusion be required, crossmatch compatible units that are negative for the E, c, Cw, and S antigens will be issued. Difficulty in obtaining compatable units is expected since only approximate ly 6% of the donor population is negative for all four antigens. The patients electronic medical record has been reviewed for relevant information . I have reviewed the test results and concur with the resident's interpretat ion. CPT: 28075-QA BLOOD BANK HX Antigen Le(a) neg 09/10 [place] RESULTS [facility] BLOOD BANK HX Antigen Jk(b) pos 09/10 [place] RESULTS /2014 [facility] BLOOD BANK HX Antigen K neg 09/10 RESULTS /2014 [facility] BLOOD BANK HX Antigen Jk(a) pos 09/10 [facility] [place] RESULTS /2015 [facility] Center BLOOD BANK HX Antigen Fy(b) neg 09/10 [facility] [place] RESULTS /2015 [facility] BLOOD BANK HX Antigen Fy(a) pos 09/10 [facility] [place] RESULTS /2015 [facility] BLOOD BANK HX Antigen C pos 09/10 [place] RESULTS /2015 [facility] BLOOD BANK HX Antigen E neg 09/10 [place] RESULTS /2015 [facility] BLOOD BANK HX Antigen Cw neg 09/10 [place] RESULTS /2015 [facility] BLOOD BANK HX Antigen M pos 09/10 [facility] [place] RESULTS /2015 [facility] BLOOD BANK HX Antigen s pos 09/10 [place] RESULTS /2015 [facility] BLOOD BANK HX Antigen c neg 09/10 [place] RESULTS /2015 [facility] BLOOD BANK HX Antigen N neg 09/10 [place] RESULTS /2014 [facility] BLOOD BANK HX Antigen P1 pos 09/10 [place] RESULTS /2015 [facility] BLOOD BANK HX Antigen S neg 09/10 [place] RESULTS /2015 [facility] BLOOD BANK HX Antigen Le(b) neg 09/10 [place] RESULTS /2015 [facility] BLOOD BANK HISTORICAL Anti-S 09/10 [place] RESULTS AB /2014 [facility] BLOOD BANK HISTORICAL Anti-Bg(a) 09/10 [place] RESULTS AB /2014 [facility] BLOOD BANK HISTORICAL Anti-Cw 09/10 [place] RESULTS AB [facility] BLOOD BANK C3 Int Negative 09/10 [place] RESULTS (09/10/14 8:01 AM) /2014 [facility] BLOOD BANK Eluate Int See Note 09/10 <sup>2</sup>R [place] RESULTS esult Medical Comment: Center 09/10/2014 12:56 TIMARTI2
Eluate non reactive with all cells tested. BLOOD BANK MEGHAN Gel Int Positive 09/10 [place] RESULTS (09/10/14 8:01 AM) /2014 [facility] BLOOD BANK AB Int Anti-E 09/10 [place] RESULTS /2015 [facility] BLOOD BANK AB Int Anti-c 09/10 [place] RESULTS /2014 [facility] HEMATOLOGY Hgb 6.3 12.0 - 09/10 <sup>10</sup> [place] 16.0 /2015 Result Medical Comment: Center Critical Result(s) called to JB LONDONO at _09/10/2014 07:45 byMK_. Read back OK. CHEM PANEL LDH 496 98 - 192 09/10 [place] /2014 [facility] ELECTROLYTE AGAP 11.8 10.0 - 09/10 [place] S 20.0 /2014 [facility] ELECTROLYTE eGFR 137 09/10 <sup>4</sup>R [facility] esult Medical Comment: The Center eGFR is calculated using the CKD-EPI formula. In most young, healthy individuals the eGFR will be >90 mL/min/1.73m2 . The eGFR declines with age. An eGFR of 60-89 may be normal in some populations, particularly the elderly, for whom the CKD-EPI formula has not been extensively validated. Use of the eGFR is not recommended in the following populations:& lt;br/>
I ndividuals with unstable creatinine concentration s, including patients and those with serious co-morbid conditions.<b r/>
Patie nts with extremes in muscle mass or diet.

The data above are obtained from the National Kidney Disease Education Program (NKDEP) which additionally recommends that when the eGFR is used in patients with extremes of body mass index for purposes of drug dosing, the eGFR should be multiplied by the estimated BMI. ELECTROLYTE Calcium Lvl 8.3 8.5 - 10.5 09/10 [facility] ELECTROLYTE Chloride Lvl 113 95 - 109 09/10 [facility] ELECTROLYTE Sodium Lvl 144 135 - 145 09/10 [facility] 2014 [facility] ELECTROLYTE Glucose Lvl 81 70 - 99 09/10 <sup>7</sup>I [facility] nterpretive Medical Data: Adult Center reference range values reflect the clinical guidelines
of the [place] [employer]. ELECTROLYTE BUN 4 7 - 22 09/10 [facility] ELECTROLYTE Creatinine 0.6 0.5 - 1.4 09/10 [facility] ELECTROLYTE CO2 23 24 - 32 09/10 [facility] ELECTROLYTE Potassium 3.8 3.5 - 5.1 09/10 [facility] HEMATOLOGY Hgb 6.2 12.0 - 09/10 <sup>11</sup> [facility] 16. Result Medical Comment: Center Critical Result(s) called to Amy Fraga at 09/10/2014 06:07 by negrita. Read back OK. HEMATOLOGY WBC 15.9 3.7 - 10.4 09/10 2014 [facility] HEMATOLOGY RBC 1.85 4.20 - 09/10 [facility] [place] 5.40 /2014 [facility] HEMATOLOGY Hct 18.2 36.0 - 09/10 [place] 48.0 /2014 [facility] HEMATOLOGY MCV 98.3 80.0 - 09/10 [place] 98.0 [facility] HEMATOLOGY RDW 25.4 11.5 - 09/10 [place] 14.5 /2014 [facility] HEMATOLOGY Platelet 190 133 - 450 09/10 [facility] HEMATOLOGY MCH 33.6 27.0 - 09/10 [place] 31.0 /2014 [facility] HEMATOLOGY MCHC 34.2 32.0 - 09/10 [place] 36.0 [facility] HEMATOLOGY MPV 8.5 7.4 - 10.4 09/10 [facility] HEMATOLOGY Retic Auto 15.8 0.5 - 1.5 09/10 [facility] ELECTROLYTE AGAP 13.7 10.0 - 09/09 [facility] S 20.0 [facility] ELECTROLYTE eGFR 96 09/09 <sup>5</sup>R esult Medical Comment: The Center eGFR is calculated using the CKD-EPI formula. In most young, healthy individuals the eGFR will be >90 mL/min/1.73m2 . The eGFR declines with age. An eGFR of 60-89 may be normal in some populations, particularly the elderly, for whom the CKD-EPI formula has not been extensively validated. Use of the eGFR is not recommended in the following populations:& lt;br/>
I ndividuals with unstable creatinine concentration s, including patients and those with serious co-morbid conditions.<b r/>
Patie nts with extremes in muscle mass or diet.

The data above are obtained from the National Kidney Disease Education Program (NKDEP) which additionally recommends that when the eGFR is used in patients with extremes of body mass index for purposes of drug dosing, the eGFR should be multiplied by the estimated BMI. ELECTROLYTE Calcium Lvl 9.1 8.5 - 10.5 09/09 [facility] ELECTROLYTE Potassium 3.7 3.5 - 5.1 09/09 [facility] S Lvl [facility] ELECTROLYTE Sodium Lvl 142 135 - 145 09/09 [facility] ELECTROLYTE Glucose Lvl 106 70 - 99 09/09 <sup>8</sup>I [facility] nterpretive Medical Data: Adult Center reference range values reflect the clinical guidelines
of the [place] [employer]. ELECTROLYTE Creatinine 0.9 0.5 - 1.4 09/09 [facility] S Lvl /2014 [facility] ELECTROLYTE BUN 6 7 - 22 09/09 [facility] S /2014 [facility] ELECTROLYTE CO2 26 24 - 32 09/09 [facility] S /2014 [facility] ELECTROLYTE Chloride Lvl 106 95 - 109 09/09 [facility] S /2014 [facility] HEMATOLOGY Sickle Cell Slight 09/09 [facility] /2014 [facility] HEMATOLOGY Schistocyte 1-3 per HPF None Seen 09/09 [facility] (09/09/14 2:13 AM) /2014 [facility] HEMATOLOGY Tear Cell Slight 09/09 [facility] HEMATOLOGY Target Cell Moderate [facility] (09/09/14 2:13 AM) [place] HEMATOLOGY Polychrom Slight 09/09 [facility] /2014 [facility] HEMATOLOGY Plt Morph Normal 09/09 [facility] (09/09/14 2:13 AM) /2014 [facility] HEMATOLOGY Tot Cell Ct 100 09/09 [facility] /2014 [facility] HEMATOLOGY Bands 0.0 0.0 - 11.0 09/09 [facility] /2014 [facility] HEMATOLOGY Segs 49.0 45.0 - 09/09 [facility] 75.0 [facility] HEMATOLOGY Macrocyte 1+ None Seen 09/09 [facility] *ABN* /2014 [facility] (09/09/14 2:13 AM) [place] HEMATOLOGY Anisocyte 1+ None Seen 09/09 [facility] *ABN* /2014 [facility] (09/09/14 2:13 AM) [place] HEMATOLOGY NRBC 2 09/09 [facility] HEMATOLOGY Atypical 0.0 <=0.0 % 09/09 [facility] Lymphs [facility] HEMATOLOGY Eosinophils 3.0 0.0 - 4.0 09/09 [facility] /2014 [facility] HEMATOLOGY Monocytes 14.0 2.0 - 12.0 09/09 /2014 [facility] HEMATOLOGY Lymphocytes 34.0 20.0 - 09/09 [place] 40.0 [facility] HEMATOLOGY Eosinophils 0.6 0.0 - 0.5 09/09 [facility] # /2014 [facility] HEMATOLOGY Monocytes # 2.7 0.0 - 0.8 09/09 /2014 [facility] HEMATOLOGY Lymphocytes 6.5 1.0 - 5.5 09/09 [facility] [place] # /2014 [facility] HEMATOLOGY Segs-Bands # 9.3 1.5 - 8.1 09/09 /2014 [facility] HEMATOLOGY Retic Auto 16.6 0.5 - 1.5 09/09 [facility] HEMATOLOGY MPV 8.3 7.4 - 10.4 09/09 [facility] HEMATOLOGY RDW 25.8 11.5 - 09/09 14.5 [facility] HEMATOLOGY MCHC 34.3 32.0 - 09/09 [place] 36.0 /2014 [facility] HEMATOLOGY Platelet 220 133 - 450 09/09 /2014 [facility] HEMATOLOGY MCV 99.8 80.0 - 09/09 [place] 98.0 /2014 [facility] HEMATOLOGY Hct 22.7 36.0 - 09/09 48.0 [facility] HEMATOLOGY MCH 34.2 27.0 - 09/09 [place] 31.0 /2014 [facility] HEMATOLOGY WBC 19.0 3.7 - 10.4 09/09 [facility] HEMATOLOGY RBC 2.28 4.20 - 09/09 [place] 5.40 /2015 [facility] Pathology Reports No Data Provided for This Section Diagnostic Reports No Data Provided for This Section Consultation Notes No Data Provided for This Section Discharge Summaries No Data Provided for This Section History and Physicals No Data Provided for This Section Vital Signs Vital Sign Value Date Comments Source Respitory Rate 18 09/12/2014 [facility] Systolic (mm Hg) 120 09/12/2014 [facility] Heart Rate 80 09/12/2014 [facility] Diastolic (mm Hg) 80 09/12/2014 [facility] Temperature Oral (F) 98.0 F 09/12/2014 [facility] Diastolic (mm Hg) 82 09/11/2014 [facility] Respitory Rate 18 09/11/2014 [facility] Systolic (mm Hg) 132 09/11/2014 [facility] Heart Rate 82 09/11/2014 [facility] Temperature Oral (F) 98.4 F 09/11/2014 [facility] Respitory Rate 16 09/11/2014 [facility] Heart Rate 86 09/11/2014 [facility] Systolic (mm Hg) 120 09/11/2014 [facility] Diastolic (mm Hg) 86 09/11/2014 [facility] Temperature Oral (F) 98.1 F 09/11/2014 [facility] Weight 70.591 09/10/2014 [facility] Weight 68.182 09/09/2014 [facility] BMI Calculated 26.63 09/09/2014 [facility] Height 160.02 cm 09/09/2014 [facility] Weight 70 09/09/2014 [facility] Height 160.02 cm 09/09/2014 [facility] BMI Calculated 27.34 09/09/2014 [facility] Encounters Location Location Encounter Encounter Reason Attending ADM DC Status Source Details Type Number For Provider Date Date Visit [facility] Inpatient [id number] Josiane 09/09 09/12 [facility] [place] [facility]2014 [facility] Procedures No Data Provided for This Section Assessment and Plan Assessment and Plan Date Source Extracted from:Title: Discharge Summary 09/12/2014 [facility] Author: Josiane Oliva MD Date: 09/12/14 Discharge Summary Date of Admission:09/09/2014 Date of Discharge:09/11/2014 Admitting physician:Dr. Ha Mann Physician at discharge: Dr. Josiane Oliva Admitting diagnoses: 1. Sickle cell anemia pain crisis 2. Leukocytosis Discharge diagnoses: 1. Acute sickle cell anemia crisis 2. acute pain 3. Metabolic acidosis 4. Constipation Hospital course: Ms. Berg is a 34 year old woman with sickle cell anemia who presented with pain crisis. She required dilaudid BLAST HOLE DRILLER bolusdoses in addition to PO long acting narcotic medication and NSAID, Tylenol. She wa s given opana 20mg q12h, PRN oxycodone and Dilaudid BLAST HOLE DRILLER 0.2mg bolus q 10min lockout. On day o discharge, she felt she could manage her pain with oral medication at home and wsa discharged. Procedures: none Consultations: none Discharge medications: see discharge medication reconciliation form Discharge condition: good Followup: with her turf grower as outpatient Time spent on discharge: 40 minutes including counseling with patient regarding her emotional hardships contributing to her pain The patient was examined by me on day of discharge. Extracted from:Title: General Admission H&P * Author: Ha Mann MD Date: 09/09/14 Patient: RODRIGO BERG Age: 34 years Sex: Female : 1980 Associated Diagnoses: None Author: Ha Mann MD Chief Complaint CC: sickle cell pain History of Present Illness 34 yr F with history CVA, h/o seizure who presents with sickle cell crisis. Patient started having her usual sickle cell pain yesterday: back pain, chest pain, le pain. Patient states that this pain is typical for her sickle crisis. Patient denies any triggers. She saw her turf grower sunday: white count 19, hg 7.4 which is unchanged in ER. Patient denies sick contacts, denies diarrhea, burning with urination, cough. PMH Sickel cell crisis CVA with Left arm contracture HTN during sickle crisis Meds; see mar allergies: morphine, toradol, tramadol, zofran Family history: no DM, HTN; parents have sickle trait social: denies smoking, alcohol use Review of Systems ROS constitutional: no weight loss, fever, chills, weakness or fatigue Heent: no visual loss, double vision, no hearing loss, sneezing, runny nose skin: no rash or itching cardiovascular: +chest pain; no palpitation or edema respiratory: no SOB, cough, or sputum gastrointestinal: no anorexia, nausea, vomiting, or diarrhea, no abdominal pain or bloody stool genitourinary: no burning on urination neuro: no headache, dizziness,syncope, ataxia, no change in bowel/bladder function muscloskeletal: see HPI hematologic: +anemia; no bleeding, or brusing psychiatric: no history of depression or anxiety Pertinant positives as noted in HPI. All other systems reviewed and are negative Health Status Allergies: Allergies (5) Active Reaction morphine None Documented Stadol None Documented Toradol None Documented traMADol None Documented Zofran None Documented Current medications: (Selected) Inpatient Medications Ordered Benadryl Maximum Strength 2% topical cream: 1 appl, TOP, ONCE Dilaudid: 1 mg, IVP, Q3H Dilaudid: 2 mg, IV, ONCE NS (Bolus) IV: 1,000 mL, 125 ml/hr, IV, ONCE Phenergan: 12.5 mg, IVPB, ONCE Saline Flush 0.9%: 10 mL, IVP, PRN, PRN: Line Flush docusate: 100 mg, PO, BID normal saline 0.9% IV 1000 mL: 125 ml/hr, IV, Stop: 09/09/14 13:12:00 Histories Past Medical History: Resolved CVA - Cerebrovascular accident ([id number]): Resolved. TIA ([id number]): Resolved. Sickle cell anemia ([id number]): Resolved. Aplastic anemia ([id number]): Resolved. Family History: No family history items have been selected or recorded. Social History Social and Psychosocial Habits Tobacco 09/09/2014 Use: Never smoker Exposure to Tobacco Smoke None Cigarette Smoking Last 365 Days No Reg Smoking Cessation Counseling Yes . Physical Examination VS/Measurements Vital Signs (last 24 hrs) Last Charted Minimum Maximum Temp 98.1 (SEP 09 03:59) 98.1 (SEP 09 03:59) 98.5 (SEP 08:51) Heart Rate 77 (SEP 09 03:59) 77 (SEP 09 03:59) 87 (SEP 09 02:30) Resp Rate 19 (SEP 09 02:30) 18 (SEP 08:51) H 24 (SEP 09 00:07) SBP H 151 (SEP 09 03:59) H 151 (SEP 09 03:59) H 157 (SEP 09 00:07) DBP H 97 (SEP 09 03:59) 89 (SEP 09 00:07) H 100 (SEP 09 02:30) Weight 70 (SEP 08:51) Height 160.02 (SEP 08:51) BMI 27.34 (SEP 08:51) General: Alert and oriented, No acute distress. Eye: Pupils are equal, round and reactive to light, Extraocular movements are intact, Normal conjunctiva. HENT: Oral mucosa is moist, No pharyngeal erythema, O/P clear. Respiratory: Respirations are non-labored, clear to ausculation bilaterally, no rales, wheezes Cardiovascular: Normal rate, Regular rhythm, No murmur, Normal peripheral perfusion, no lower extremity edema Abdomen: Soft, non-tender, non-distended, normal bowel sounds Integumentary: Warm, well purfused, no rashes Neurologic: Alert, Orientedx4, CN grossly intact, reflexes symmertric bilaterally, 5/5 strength in UE and lower extermities bilaterally Psych: normal mood, normal affect Review / Management Results review: Labs (Last four charted values) WBC H 19.0 (SEP 09) Hgb L 7.8 (SEP 09) Hct L 22.7 (SEP 09) Plt 220 (SEP 09) Na 142 (SEP 09) K 3.7 (SEP 09) CO2 26 (SEP 09) Cl 106 (SEP 09) Cr 0.9 (SEP 09) BUN L 6 (SEP 09) Glucose Random H 106 (SEP 09) Ca 9.1 (SEP 09) . Impression and Plan #sickle cell crisis: unclear trigger; will cont IV hydration; cont dilaudid IV as needed; xray negative for PNA; check UA. -will cont oxymorphone 20mg bid home dose. #leukocytosis: likely reactive; unchanged from last sunday office visit with turf grower Dr. Guaman; xray negative; UA pending #acute pain: cont IV dialudid prn q3hrs, cont home oxymorphone ; cont IV fluids #h/o HTN: during sickle crisis, monitor BP regular diet Addendum by Ha Mann MD on 09/09/2014 06:24 correction: oxymorphone is 30mg q12. Plan of Care No Data Provided for This Section Social History Social History Date Source Social History TypeResponse 09/09/2014 [facility] Alcohol Use: Never Smoking Status Never smoker, Exposure to Tobacco Smoke None, Cigarette Smoking Last 365 Days No, Reg Smoking Cessation Counseling Yes Family History No Data Provided for This Section Advance Directives No Data Provided for This Section Functional Status No Data Provided for This Section
--- OUTSIDE RECORDS SUMMARY | 2019-03-04 11:56 | XMS REPORT ---
:1980 [facility] [address] [place] [address] Care Team Providers Name Role Phone TALISAH SORENSEN Unavailable Unavailable VIRY CARRIZALES Unavailable Unavailable YANA CIFUENTES Unavailable Unavailable Payers Payer Name Policy Type Policy Number Effective Date Expiration Date Problems This patient has no known problems. Allergies, Adverse Reactions, Alerts Allergy Name Allergy Status Severity Reaction(s) Onset Inactive Treating Comments Type Date Date Clinician fentanyl DA Active SV 2019-0 4-12 00:00: 00 morphine DA Active SV 2019-0 4-11 00:00: 00 butorphanol DA Active U 2019-0 4-11 00:00: 00 metoclopramide DA Active SV 2019-0 4-11 00:00: 00 ketorolac DA Active SV 2019-0 4-11 00:00: 00 TRAZADONE DA Active SV 2019-0 4-11 00:00: 00 Medications This patient has no known medications. Results Test Description Test Time Test Comments Text Results Atomic Results Result Comments CT, CHEST WITH IV CONTRAST- 2019-01-08 09:54:00 FINAL REPORT PATIENT ID: PE TEST DESIGN [id number] INDICATION: Acute chest pain. COMPARISON:Chest radiograph January 07, 2019 TECHNIQUE: Chest CT exam WITH intravenous contrast, PE protocol. The exam was performed according to our department dose-optimization protocol, which includes automated exposure control, adjustments of mA and kV according to patient size. Iterative reconstructions are also sometimes employed. FINDINGS:No pulmonary embolus is demonstrated. Evaluation of the [...] with irregular contour suggesting cirrhosis. Signed: Miguel Carrera MDReport Verified Date/Time: 01/08/2019 09:54:01 Reading Location: [address] Body Reading Room TINE KINASE (CK) 2019-01-08 02:25:00 Test Item Value Reference Range Comments CREATINE KINASE TOTAL (BEAKER) (test tzar=927) 7 U/L 29-200 TROPONIN [id number] 01:38:00 Test Item Value Reference Range Comments TROPONIN I (BEAKER) (test syri=360) < ng/mL 0.00-0.03 Troponin I (TnI) levels [...] failure, acidosis, acute neurological disease, and persistent tachyarrhythmia.TROPONIN [id number] 19:01:00 Test Item Value Reference Range Comments TROPONIN I (BEAKER) (test mrpq=299) < ng/mL 0.00-0.03 Troponin I (TnI) levels [...] failure, acidosis, acute neurological disease, and persistent tachyarrhythmia.CREATINE KINASE (CK)2019-01-07 18:55:00 Test Item Value Reference Range Comments CREATINE KINASE TOTAL (BEAKER) (test zeuh=948) 11 U/L 29-200 RAD, CHEST, 1 VIEW, NON [id number] 08:40:00Reason for exam:->Shortness of BreathShould this be performed at the bedside?->YesFINAL REPORT TECHNIQUE: Frontal chest radiograph dated 01/07/2019. [...] osteopenic for patient's stated age. Signed: Mckenzie Yeeport Verified Date/Time: 01/07/201908:40:21 Reading Location: [facility] Radiology Reading Room CBC W/PLT COUNT & AUTO [id number] 12: 52:00 Test Item Value Reference Range Comments WHITE BLOOD CELL COUNT (BEAKER) (test veco=762) 20.2 K/ L 3.5-10.5 RED BLOOD CELL COUNT (BEAKER) (test gzbd=699) 2.32 M/ L 3.93-5.22 HEMOGLOBIN (BEAKER) (test cwyz=862) 7.9 GM/DL 11.2-15.7 HEMATOCRIT (BEAKER) (test tfxg=922) 24.5 % 34.1-44.9 MEAN CORPUSCULAR VOLUME (BEAKER) (test uxyy=140) 105.6 fL 79.4-94.8 MEAN CORPUSCULAR HEMOGLOBIN (BEAKER) (test 34.1 pg 25.6-32.2 axyq=290) MEAN CORPUSCULAR HEMOGLOBIN CONC (BEAKER) (test 32.2 GM/DL 32.2-35.5 lufa=943) RED CELL DISTRIBUTION WIDTH (BEAKER) (test 22.3 % 11.7-14.4 sybq=822) PLATELET COUNT (BEAKER) (test cadp=662) 219 K/CU MM 150-450 MEAN PLATELET VOLUME (BEAKER) (test ckap=842) 11.6 fL 9.4-12.3 NUCLEATED RED BLOOD CELLS (BEAKER) (test 7 /100 WBC 0-0 nxnt=075) (CELLAVISION MANUAL DIFF)2019-01-06 12:52:00 Test Item Value Reference Range Comments NEUTROPHILS - REL (CELLAVISION)(BEAKER) (test 57 % ktcp=9948) LYMPHOCYTES - REL (CELLAVISION)(BEAKER) (test 19 % afas=1229) MONOCYTES - REL (CELLAVISION)(BEAKER) (test 18 % zocp=8765) EOSINOPHILS - REL (CELLAVISION)(BEAKER) (test 6 % coas=1004) NEUTROPHILS - ABS (CELLAVISION)(BEAKER) (test 11.51 K/ul 1.56-6.13 zlbc=8282) LYMPHOCYTES - ABS (CELLAVISION)(BEAKER) (test 3.84 K/ul 1.18-3.74 jzcc=9191) MONOCYTES - ABS (CELLAVISION)(BEAKER) (test 3.64 K/uL 0.24-0.36 dbjc=1745) EOSINOPHILS - ABS (CELLAVISION)(BEAKER) (test 1.21 K/uL 0.04-0.36 mhsh=5113) TOTAL COUNTED (BEAKER) (test fnls=3171) 100 MANUAL NRBC PER 100 CELLS (BEAKER) (test 9 /100 WBC 0-0 dbig=5923) SMUDGE CELLS (BEAKER) (test dkwd=8545) Present GIANT PLATELETS (BEAKER) (test efhn=575) Present POLYCHROMATOPHILLIC RBCS(BEAKER) (test nolw=307) 2+ moderate ANISOCYTOSIS (BEAKER) (test qkli=144) 2+ moderate MACROCYTES (BEAKER) (test vyzi=794) 2+ moderate SICKLE CELLS (BEAKER) (test dfif=104) 1+ few ARTIFACT (CELLAVISION)(BEAKER) (test adxi=6038) Present PLATELET CONCENTRATION (CELLAVISION)(BEAKER) Adequate (test fumk=2385) Received comment: User comments: Slide comments:BASIC METABOLIC [id number] 07:32:00 Test Item Value Reference Range Comments SODIUM (BEAKER) (test 140 meq/L 136-145 pbvl=629) POTASSIUM (BEAKER) (test 4.2 meq/L 3.5-5.1 lvgi=752) CHLORIDE (BEAKER) (test 96 meq/L 98-107 oyll=091) CO2 (BEAKER) (test 34 meq/L 22-29 lyhl=721) BLOOD UREA NITROGEN 10 mg/dL 7-21 (BEAKER) (test tjhz=399) CREATININE (BEAKER) (test 0.58 mg/dL 0.57-1.25 mfjt=420) GLUCOSE RANDOM (BEAKER) 95 mg/dL 70-105 (test uaha=996) CALCIUM (BEAKER) (test 9.6 mg/dL 8.4-10.2 esgi=642) EGFR (BEAKER) (test 140 mL/min/1.73 sq m ESTIMATED GFR IS NOT ndqm=7850) ACCURATE CREATININE CLEARANCE IN PREDICTING GLOMERULAR FILTRATION RATE. ESTIMATED GFR IS NOT APPLICABLE FOR DIALYSIS PATIENTS. Specimen slightly ictericCBC W/PLT COUNT & AUTO [id number] 06:02 :00 Test Item Value Reference Range Comments WHITE BLOOD CELL COUNT (BEAKER) (test pivk=189) 20.2 K/ L 3.5-10.5 RED BLOOD CELL COUNT (BEAKER) (test porb=298) 2.24 M/ L 3.93-5.22 HEMOGLOBIN (BEAKER) (test iqhk=893) 7.5 GM/DL 11.2-15.7 HEMATOCRIT (BEAKER) (test oart=335) 23.3 % 34.1-44.9 MEAN CORPUSCULAR VOLUME (BEAKER) (test obzu=195) 104.0 fL 79.4-94.8 MEAN CORPUSCULAR HEMOGLOBIN (BEAKER) (test 33.5 pg 25.6-32.2 qwvi=408) MEAN CORPUSCULAR HEMOGLOBIN CONC (BEAKER) (test 32.2 GM/DL 32.2-35.5 dgff=576) RED CELL DISTRIBUTION WIDTH (BEAKER) (test 23.4 % 11.7-14.4 dzdr=007) PLATELET COUNT (BEAKER) (test xdgx=091) 215 K/CU MM 150-450 MEAN PLATELET VOLUME (BEAKER) (test sgon=299) 11.2 fL 9.4-12.3 NUCLEATED RED BLOOD CELLS (BEAKER) (test 9 /100 WBC 0-0 valt=175) NEUTROPHILS RELATIVE PERCENT (BEAKER) (test 54 % nrah=435) LYMPHOCYTES RELATIVE PERCENT (BEAKER) (test 22 % ayve=955) MONOCYTES RELATIVE PERCENT (BEAKER) (test 18 % ybmx=427) EOSINOPHILS RELATIVE PERCENT (BEAKER) (test 5 % kimz=344) BASOPHILS RELATIVE PERCENT (BEAKER) (test 0 % gqdp=700) NEUTROPHILS ABSOLUTE COUNT (BEAKER) (test 10.96 K/ L 1.56-6.13 xpge=100) LYMPHOCYTES ABSOLUTE COUNT (BEAKER) (test 4.39 K/ L 1.18-3.74 vasc=066) MONOCYTES ABSOLUTE COUNT (BEAKER) (test 3.61 K/ L 0.24-0.36 dklu=033) EOSINOPHILS ABSOLUTE COUNT (BEAKER) (test 1.08 K/ L 0.04-0.36 srgz=251) BASOPHILS ABSOLUTE COUNT (BEAKER) (test 0.07 K/ L 0.01-0.08 zvoy=357) IMMATURE GRANULOCYTES-RELATIVE PERCENT (BEAKER) 1 % 0-1 (test jnso=0940) BASIC METABOLIC [id number] 06:02:00 Test Item Value Reference Range Comments SODIUM (BEAKER) (test 139 meq/L 136-145 wkem=128) POTASSIUM (BEAKER) (test 4.3 meq/L 3.5-5.1 dkvt=176) CHLORIDE (BEAKER) (test 98 meq/L 98-107 hefu=926) CO2 (BEAKER) (test 36 meq/L 22-29 qydl=143) BLOOD UREA NITROGEN 9 mg/dL 7-21 (BEAKER) (test ifms=950) CREATININE (BEAKER) (test 0.56 mg/dL 0.57-1.25 cxvo=142) GLUCOSE RANDOM (BEAKER) 100 mg/dL 70-105 (test qzoh=909) CALCIUM (BEAKER) (test 9.5 mg/dL 8.4-10.2 mgsp=537) EGFR (BEAKER) (test 146 mL/min/1.73 sq m ESTIMATED GFR IS NOT aufx=9297) ACCURATE CREATININE CLEARANCE IN PREDICTING GLOMERULAR FILTRATION RATE. ESTIMATED GFR IS NOT APPLICABLE FOR DIALYSIS PATIENTS. Specimen slightly ictericBASIC METABOLIC [id number] 09:02:00 Test Item Value Reference Range Comments SODIUM (BEAKER) (test 141 meq/L 136-145 hkbk=522) POTASSIUM (BEAKER) (test 4.4 meq/L 3.5-5.1 uvfn=530) CHLORIDE (BEAKER) (test 101 meq/L 98-107 bxjh=415) CO2 (BEAKER) (test 32 meq/L 22-29 xawm=631) BLOOD UREA NITROGEN 9 mg/dL 7-21 (BEAKER) (test fdtx=031) CREATININE (BEAKER) (test 0.54 mg/dL 0.57-1.25 duwn=717) GLUCOSE RANDOM (BEAKER) 102 mg/dL 70-105 (test iziu=826) CALCIUM (BEAKER) (test 9.6 mg/dL 8.4-10.2 uypa=090) EGFR (BEAKER) (test 152 mL/min/1.73 sq m ESTIMATED GFR IS NOT ilwh=5848) ACCURATE CREATININE CLEARANCE IN PREDICTING GLOMERULAR FILTRATION RATE. ESTIMATED GFR IS NOT APPLICABLE FOR DIALYSIS PATIENTS. Specimen slightly ictericCBC W/PLT COUNT & AUTO [id number] 07:17 :00 Test Item Value Reference Range Comments WHITE BLOOD CELL COUNT (BEAKER) (test yeet=555) 19.8 K/ L 3.5-10.5 RED BLOOD CELL COUNT (BEAKER) (test nxvf=256) 2.35 M/ L 3.93-5.22 HEMOGLOBIN (BEAKER) (test zonz=974) 7.7 GM/DL 11.2-15.7 HEMATOCRIT (BEAKER) (test udbe=729) 24.3 % 34.1-44.9 MEAN CORPUSCULAR VOLUME (BEAKER) (test fxrj=765) 103.4 fL 79.4-94.8 MEAN CORPUSCULAR HEMOGLOBIN (BEAKER) (test 32.8 pg 25.6-32.2 ljis=166) MEAN CORPUSCULAR HEMOGLOBIN CONC (BEAKER) (test 31.7 GM/DL 32.2-35.5 dnyx=241) RED CELL DISTRIBUTION WIDTH (BEAKER) (test 24.4 % 11.7-14.4 wkiq=417) PLATELET COUNT (BEAKER) (test fuvl=779) 220 K/CU MM 150-450 MEAN PLATELET VOLUME (BEAKER) (test nsqf=136) 10.9 fL 9.4-12.3 NUCLEATED RED BLOOD CELLS (BEAKER) (test 14 /100 WBC 0-0 ivjc=293) (CELLAVISION MANUAL DIFF)2019-01-04 07:17:00 Test Item Value Reference Range Comments NEUTROPHILS - REL (CELLAVISION)(BEAKER) (test 62 % erst=8638) LYMPHOCYTES - REL (CELLAVISION)(BEAKER) (test 25 % tkto=3540) MONOCYTES - REL (CELLAVISION)(BEAKER) (test 8 % snuu=5453) EOSINOPHILS - REL (CELLAVISION)(BEAKER) (test 3 % pgig=3574) BANDS - REL (CELLAVISION)(BEAKER) (test 1 % 0-10 eisf=7531) NEUTROPHILS - ABS (CELLAVISION)(BEAKER) (test 12.28 K/ul 1.56-6.13 kmoe=4953) LYMPHOCYTES - ABS (CELLAVISION)(BEAKER) (test 4.95 K/ul 1.18-3.74 hpdy=4726) MONOCYTES - ABS (CELLAVISION)(BEAKER) (test 1.58 K/uL 0.24-0.36 vpgb=5359) EOSINOPHILS - ABS (CELLAVISION)(BEAKER) (test 0.59 K/uL 0.04-0.36 exbw=6075) BANDS - ABS (CELLAVISION)(BEAKER) (test 0.20 K/uL 0.00-0.80 cezj=5276) TOTAL COUNTED (BEAKER) (test jcrt=4261) 100 MANUAL NRBC PER 100 CELLS (BEAKER) (test 20 /100 WBC 0-0 ckei=5385) RBC MORPHOLOGY (BEAKER) (test bxmk=562) Normal WBC MORPHOLOGY (BEAKER) (test jnbj=450) Normal PLT MORPHOLOGY (BEAKER) (test hxch=257) Normal GIANT PLATELETS (BEAKER) (test gmxg=007) Present LARGE PLT(BEAKER) (test fvio=6642) Present POLYCHROMATOPHILLIC RBCS(BEAKER) (test kqrh=677) 2+ moderate HYPOCHROMIA (BEAKER) (test jjbl=542) 2+ moderate ANISOCYTOSIS (BEAKER) (test dyca=632) 2+ moderate MICROCYTES (BEAKER) (test sbah=120) 1+ few MACROCYTES (BEAKER) (test otgu=300) 2+ moderate POIKILOCYTES (BEAKER) (test xcoa=827) 3+ many TARGET CELLS (BEAKER) (test ptgi=069) 2+ moderate SCHISTOCYTES (BEAKER) (test mlrj=023) 1+ few SICKLE CELLS (BEAKER) (test wjuc=465) 3+ many ELLIPTOCYTES (BEAKER) (test vnjq=996) 1+ few OVALOCYTES (BEAKER) (test tzhy=810) 1+ few BASOPHILIC STIPPLING (BEAKER) (test ijkh=155) Present ARTIFACT (CELLAVISION)(BEAKER) (test rree=0784) Present PAPPENHEIMER (CELLAVISION)(BEAKER) (test 1+ few thsh=6205) PLATELET CONCENTRATION (CELLAVISION)(BEAKER) Adequate (test eddd=6910) Received comment: User comments: Slide comments:CBC WITH PLATELET COUNT + MANUAL [id number] 10:36:00 Test Item Value Reference Range Comments WHITE BLOOD CELL COUNT 22.9 K/ L 3.5-10.5 (BEAKER) (test hbpz=756) RED BLOOD CELL COUNT (BEAKER) 2.28 M/ L 3.93-5.22 (test nodn=229) HEMOGLOBIN (BEAKER) (test 7.7 GM/DL 11.2-15.7 uxwa=610) HEMATOCRIT (BEAKER) (test 23.2 % 34.1-44.9 ziar=351) MEAN CORPUSCULAR VOLUME 101.8 fL 79.4-94.8 Discordant results compared (BEAKER) (test tbgp=118) to previous result; clinical correlation required. MEAN CORPUSCULAR HEMOGLOBIN 33.8 pg 25.6-32.2 (BEAKER) (test wnxi=638) MEAN CORPUSCULAR HEMOGLOBIN 33.2 GM/DL 32.2-35.5 CONC (BEAKER) (test cszd=600) RED CELL DISTRIBUTION WIDTH 23.3 % 11.7-14.4 (BEAKER) (test lxbe=268) PLATELET COUNT (BEAKER) (test 251 K/CU MM 150-450 dwrx=163) MEAN PLATELET VOLUME (BEAKER) 10.7 fL 9.4-12.3 (test wnqk=751) NUCLEATED RED BLOOD CELLS 52 /100 WBC 0-0 (BEAKER) (test hopx=545) (CELLAVISION MANUAL DIFF)2019-01-01 10:36:00 Test Item Value Reference Range Comments NEUTROPHILS - REL (CELLAVISION)(BEAKER) (test 56 % zqdm=8800) LYMPHOCYTES - REL (CELLAVISION)(BEAKER) (test 30 % dzvb=1493) MONOCYTES - REL (CELLAVISION)(BEAKER) (test 10 % ffpq=1753) EOSINOPHILS - REL (CELLAVISION)(BEAKER) (test 3 % lhln=4214) ATYPICAL LYMPHOCYTES - REL (CELLAVISION)(BEAKER) 2 % 0-0 (test ddcj=6276) NEUTROPHILS - ABS (CELLAVISION)(BEAKER) (test 12.82 K/ul 1.56-6.13 sjoy=3145) LYMPHOCYTES - ABS (CELLAVISION)(BEAKER) (test 6.87 K/ul 1.18-3.74 yflv=2271) MONOCYTES - ABS (CELLAVISION)(BEAKER) (test 2.29 K/uL 0.24-0.36 okpq=7405) EOSINOPHILS - ABS (CELLAVISION)(BEAKER) (test 0.69 K/uL 0.04-0.36 hjxb=2682) ATYPICAL LYMPHOCYTES - ABS (CELLAVISION)(BEAKER) 0.46 K/uL 0.00-0.00 (test siqi=1137) TOTAL COUNTED (BEAKER) (test vmpq=2561) 100 MANUAL NRBC PER 100 CELLS (BEAKER) (test 61 /100 WBC 0-0 ipgt=7250) WBC MORPHOLOGY (BEAKER) (test anax=019) Normal PLT MORPHOLOGY (BEAKER) (test ywpa=806) Normal POLYCHROMATOPHILLIC RBCS(BEAKER) (test syaw=804) 3+ many HYPOCHROMIA (BEAKER) (test zmrf=066) 2+ moderate TARGET CELLS (BEAKER) (test hzyo=435) 2+ moderate SICKLE CELLS (BEAKER) (test lgkm=389) 2+ moderate MATTHEWS-JOLLY BODIES (BEAKER) (test wetd=146) 1+ few ARTIFACT (CELLAVISION)(BEAKER) (test kkmb=2810) Present PLATELET CONCENTRATION (CELLAVISION)(BEAKER) Adequate (test yjsb=3864) Received comment: User comments: Slide comments:BASIC METABOLIC [id number] 08:47:00 Test Item Value Reference Range Comments SODIUM (BEAKER) (test 140 meq/L 136-145 bdpr=511) POTASSIUM (BEAKER) (test 4.2 meq/L 3.5-5.1 zyuh=390) CHLORIDE (BEAKER) (test 109 meq/L 98-107 xucf=743) CO2 (BEAKER) (test 27 meq/L 22-29 nplw=728) BLOOD UREA NITROGEN 10 mg/dL 7-21 (BEAKER) (test eqtc=795) CREATININE (BEAKER) (test 0.65 mg/dL 0.57-1.25 rfcr=165) GLUCOSE RANDOM (BEAKER) 87 mg/dL 70-105 (test eefg=622) CALCIUM (BEAKER) (test 8.9 mg/dL 8.4-10.2 hmxb=103) EGFR (BEAKER) (test 123 mL/min/1.73 sq m ESTIMATED GFR IS NOT oglk=1738) ACCURATE CREATININE CLEARANCE IN PREDICTING GLOMERULAR FILTRATION RATE. ESTIMATED GFR IS NOT APPLICABLE FOR DIALYSIS PATIENTS. Specimen slightly ictericHEMOGLOBIN AND [id number] 12:05:00 Test Item Value Reference Range Comments HEMOGLOBIN (BEAKER) (test cybk=021) 5.5 GM/DL 11.2-15.7 HEMATOCRIT (BEAKER) (test dbpg=553) 17.1 % 34.1-44.9 CBC W/PLT COUNT & AUTO [id number] 09:09:00 Test Item Value Reference Range Comments WHITE BLOOD CELL COUNT (BEAKER) (test tifm=516) 32.6 K/ L 3.5-10.5 RED BLOOD CELL COUNT (BEAKER) (test jcxh=480) 1.71 M/ L 3.93-5.22 HEMOGLOBIN (BEAKER) (test dyko=897) 5.9 GM/DL 11.2-15.7 HEMATOCRIT (BEAKER) (test bzcq=116) 18.5 % 34.1-44.9 MEAN CORPUSCULAR VOLUME (BEAKER) (test ndys=815) 108.2 fL 79.4-94.8 MEAN CORPUSCULAR HEMOGLOBIN (BEAKER) (test 34.5 pg 25.6-32.2 eqnp=813) MEAN CORPUSCULAR HEMOGLOBIN CONC (BEAKER) (test 31.9 GM/DL 32.2-35.5 dijq=741) RED CELL DISTRIBUTION WIDTH (BEAKER) (test 27.3 % 11.7-14.4 mygj=132) PLATELET COUNT (BEAKER) (test dkxm=764) 245 K/CU MM 150-450 MEAN PLATELET VOLUME (BEAKER) (test jzxi=308) 11.0 fL 9.4-12.3 NUCLEATED RED BLOOD CELLS (BEAKER) (test 18 /100 WBC 0-0 pnoy=273) (CELLAVISION MANUAL DIFF)2018-12-31 09:09:00 Test Item Value Reference Range Comments NEUTROPHILS - REL (CELLAVISION)(BEAKER) (test 61 % piin=6679) LYMPHOCYTES - REL (CELLAVISION)(BEAKER) (test 30 % zqdy=0098) MONOCYTES - REL (CELLAVISION)(BEAKER) (test 9 % baxx=2472) BANDS - REL (CELLAVISION)(BEAKER) (test 1 % 0-10 scls=0105) NEUTROPHILS - ABS (CELLAVISION)(BEAKER) (test 19.89 K/ul 1.56-6.13 vwes=3998) LYMPHOCYTES - ABS (CELLAVISION)(BEAKER) (test 9.78 K/ul 1.18-3.74 epmw=7887) MONOCYTES - ABS (CELLAVISION)(BEAKER) (test 2.93 K/uL 0.24-0.36 yyzt=1481) BANDS - ABS (CELLAVISION)(BEAKER) (test 0.33 K/uL 0.00-0.80 qyuv=6384) TOTAL COUNTED (BEAKER) (test eqzf=2097) 100 MANUAL NRBC PER 100 CELLS (BEAKER) (test 21 /100 WBC 0-0 ebti=7462) WBC MORPHOLOGY (BEAKER) (test hnvz=541) Normal PLT MORPHOLOGY (BEAKER) (test bkdd=482) Normal POLYCHROMATOPHILLIC RBCS(BEAKER) (test qyrz=140) 3+ many HYPOCHROMIA (BEAKER) (test wivs=294) 2+ moderate TARGET CELLS (BEAKER) (test abss=028) 2+ moderate SICKLE CELLS (BEAKER) (test zsxf=823) 2+ moderate MATTHEWS-JOLLY BODIES (BEAKER) (test urgc=307) 1+ few ARTIFACT (CELLAVISION)(BEAKER) (test wwdk=6026) Present PLATELET CONCENTRATION (CELLAVISION)(BEAKER) Adequate (test bjwc=1582) Received comment: User comments: Slide comments:BASIC METABOLIC [id number] 06:17:00 Test Item Value Reference Range Comments SODIUM (BEAKER) (test 140 meq/L 136-145 jzbg=051) POTASSIUM (BEAKER) (test 4.6 meq/L 3.5-5.1 tamm=273) CHLORIDE (BEAKER) (test 112 meq/L 98-107 keuf=804) CO2 (BEAKER) (test 20 meq/L 22-29 obfr=171) BLOOD UREA NITROGEN 13 mg/dL 7-21 (BEAKER) (test qgot=767) CREATININE (BEAKER) (test 0.76 mg/dL 0.57-1.25 mvwc=219) GLUCOSE RANDOM (BEAKER) 97 mg/dL 70-105 (test rxaa=744) CALCIUM (BEAKER) (test 9.3 mg/dL 8.4-10.2 zora=616) EGFR (BEAKER) (test 103 mL/min/1.73 sq m ESTIMATED GFR IS NOT qtay=0875) ACCURATE CREATININE CLEARANCE IN PREDICTING GLOMERULAR FILTRATION RATE. ESTIMATED GFR IS NOT APPLICABLE FOR DIALYSIS PATIENTS. Specimen slightly ictericRETIC COUNT (AUTOMATED)2018-12-04 07:18:00 Test Item Value Reference Range Comments RETIC COUNT (AUTOMATED) (test code=RETICA) 13.5 % 0.3-2.3 COMPREHENSIVE METABOLIC [id number] 14:26:00 Test Item Value Reference Range Comments SODIUM (test code=NA) 135 mEq/L 134-147 POTASSIUM (test code=K) 4.4 mEq/L 3.4-5.0 CHLORIDE (test code=CL) 101 mEq/L 100-108 CARBON DIOXIDE (test code=CO2) 31 mEq/L 21-33 ANION GAP (test code=GAP) 7 0-20 GLUCOSE (test code=GLU) 112 mg/dL 70-110 BLOOD UREA NITROGEN (test 13 mg/dL 7-18 code=BUN) GLOMERULAR FILTRATION RATE 134.7 105-110 Units of (test code=GFR) measure=ml/min/1.73 m2 CREATININE (test code=CREAT) 0.6 mg/dL 0.6-1.3 TOTAL PROTEIN (test code=PROT) 9.4 g/dL 6.4-8.2 ALBUMIN (test code=ALB) 3.20 g/dL 3.4-5.0 CALCIUM (test code=CA) 9.0 mg/dL 8.0-10.5 BILIRUBIN TOTAL (test 2.30 mg/dL 0.0-1.0 code=BILT) SGOT/AST (test code=AST) 153 IUnit/L 15-37 SGPT/ALT (test code=ALT) 73 IUnit/L 15-65 ALKALINE PHOSPHATASE TOTAL 169 IUnit/L 20-125 (test code=ALKP) CBC W/AUTO [id number] 14:15:00 Test Item Value Reference Range Comments WHITE BLOOD CELL (test code=WBC) 12.58 x10 3/uL 4.5-11.0 RED BLOOD CELL (test code=RBC) 2.80 x10 6/uL 3.54-5.02 HEMOGLOBIN (test code=HGB) 9.0 g/dL 11.0-15.0 HEMATOCRIT (test code=HCT) 27.6 % 33.0-45.0 MEAN CELL VOLUME (test code=MCV) 98.6 fL 81.0-99.0 MEAN CELL HGB (test code=MCH) 32.1 pg 27.0-33.0 MEAN CELL HGB CONCETRATION (test code=MCHC) 32.6 g/dL 33.0-37.0 RED CELL DISTRIBUTION WIDTH CV (test 21.8 % 11.5-14.5 code=RDW) RED CELL DISTRIBUTION WIDTH SD (test 78.1 fL 37.0-54.0 code=RDW-SD) PLATELET COUNT (test code=PLT) 207 x10 3/uL 150-400 MEAN PLATELET VOLUME (test code=MPV) 11.3 fL 7.0-9.0 MANUAL DIFF REQUIRED (test code=MDIFF) YES WBC [id number] 14:15:00 Test Item Value Reference Range Comments SEGMENTED NEUTROPHILS (test 32 % 37-69 code=SEG) LYMPHOCYTE (test 41 % 23-55 code=LYMPH) MONOCYTE (test code=MON) 17 % 0-10 EOSINOPHIL (test code=EOS) 9 % 0.0-4.0 BASOPHIL (test code=BASO) 1 % 0.0-2.0 NUCLEATED RED BLOOD CELL 7 % (test code=NRBC) POLYCHROMASIA (test 2+ code=POLC) HYPOCHROMIA (test SLIGHT code=HYPO) POIKILOCYTOSIS (test 2+ RARE STOMATOCYTES SEEN code=POIK) BASOPHILIC STIPPLING (test FEW code=STP) ANISOCYTOSIS (test 2+ code=ANISO) MICROCYTOSIS (test FEW code=MICR) MACROCYTOSIS (test 2+ code=MACR) TARGET CELLS (test 2+ code=TGT) TEAR DROP CELLS (test FEW code=TEAR) OVALOCYTES (test code=OVAL) FEW SCHISTOCYTES (test FEW code=ALIVIA) SICKLE CELLS (test 2+ code=SICKL) MATTHEWS-JOLLY BODIES (test SEEN code=HJB) TOXIC GRANULATION (test SLIGHT code=TOX) VACUOLATED NEUTROPHILS Present (test code=VN) PLATELET ESTIMATE (test Adequate THOUSAND ADEQUATE code=PLTEST) PLATELET MORPHOLOGY (test LARGE PLATELETS LARGE PLTS AND GIANT code=PLTMORPH) PLTS SEEN RETIC COUNT (AUTOMATED)2018-12-03 14:15:00 Test Item Value Reference Range Comments RETIC COUNT (AUTOMATED) (test code=RETICA) 18.7 % 0.3-2.3 BASIC METABOLIC [id number] 07:41:00 Test Item Value Reference Range Comments SODIUM (test code=NA) 135 mEq/L 134-147 POTASSIUM (test code=K) 4.5 mEq/L 3.4-5.0 CHLORIDE (test code=CL) 100 mEq/L 100-108 CARBON DIOXIDE (test code=CO2) 31 mEq/L 21-33 ANION GAP (test code=GAP) 9 0-20 GLUCOSE (test code=GLU) 81 mg/dL 70-110 BLOOD UREA NITROGEN (test 13 mg/dL 7-18 code=BUN) GLOMERULAR FILTRATION RATE 134.7 105-110 Units of measure=ml/min/1.73 (test code=GFR) m2 CREATININE (test code=CREAT) 0.6 mg/dL 0.6-1.3 CALCIUM (test code=CA) 8.8 mg/dL 8.0-10.5 CBC W/AUTO [id number] 06:18:00 Test Item Value Reference Range Comments WHITE BLOOD CELL (test code=WBC) 12.58 x10 3/uL 4.5-11.0 RED BLOOD CELL (test code=RBC) 2.80 x10 6/uL 3.54-5.02 HEMOGLOBIN (test code=HGB) 9.0 g/dL 11.0-15.0 HEMATOCRIT (test code=HCT) 27.6 % 33.0-45.0 MEAN CELL VOLUME (test code=MCV) 98.6 fL 81.0-99.0 MEAN CELL HGB (test code=MCH) 32.1 pg 27.0-33.0 MEAN CELL HGB CONCETRATION (test code=MCHC) 32.6 g/dL 33.0-37.0 RED CELL DISTRIBUTION WIDTH CV (test 21.8 % 11.5-14.5 code=RDW) RED CELL DISTRIBUTION WIDTH SD (test 78.1 fL 37.0-54.0 code=RDW-SD) PLATELET COUNT (test code=PLT) 207 x10 3/uL 150-400 MEAN PLATELET VOLUME (test code=MPV) 11.3 fL 7.0-9.0 LYMPHOCYTE % (test code=LY%) % 14.0-32.0 MANUAL DIFF REQUIRED (test code=MDIFF) RETIC COUNT (AUTOMATED)2018-12-03 06:18:00 Test Item Value Reference Range Comments RETIC COUNT (AUTOMATED) (test code=RETICA) % 0.3-2.3 CBC W/AUTO [id number] 06:18:00 Test Item Value Reference Range Comments WHITE BLOOD CELL (test code=WBC) 12.58 x10 3/uL 4.5-11.0 RED BLOOD CELL (test code=RBC) 2.80 x10 6/uL 3.54-5.02 HEMOGLOBIN (test code=HGB) 9.0 g/dL 11.0-15.0 HEMATOCRIT (test code=HCT) 27.6 % 33.0-45.0 MEAN CELL VOLUME (test code=MCV) 98.6 fL 81.0-99.0 MEAN CELL HGB (test code=MCH) 32.1 pg 27.0-33.0 MEAN CELL HGB CONCETRATION (test code=MCHC) 32.6 g/dL 33.0-37.0 RED CELL DISTRIBUTION WIDTH CV (test 21.8 % 11.5-14.5 code=RDW) RED CELL DISTRIBUTION WIDTH SD (test 78.1 fL 37.0-54.0 code=RDW-SD) PLATELET COUNT (test code=PLT) 207 x10 3/uL 150-400 MEAN PLATELET VOLUME (test code=MPV) 11.3 fL 7.0-9.0 MANUAL DIFF REQUIRED (test code=MDIFF) YES WBC [id number] 06:18:00 Test Item Value Reference Range Comments ANISOCYTOSIS (test code=ANISO) PLATELET ESTIMATE (test code=PLTEST) THOUSAND ADEQUATE RETIC COUNT (AUTOMATED)2018-12-03 06:18:00 Test Item Value Reference Range Comments RETIC COUNT (AUTOMATED) (test code=RETICA) 18.7 % 0.3-2.3 CBC W/AUTO [id number] 06:18:00 Test Item Value Reference Range Comments WHITE BLOOD CELL (test code=WBC) 12.58 x10 3/uL 4.5-11.0 RED BLOOD CELL (test code=RBC) 2.80 x10 6/uL 3.54-5.02 HEMOGLOBIN (test code=HGB) 9.0 g/dL 11.0-15.0 HEMATOCRIT (test code=HCT) 27.6 % 33.0-45.0 MEAN CELL VOLUME (test code=MCV) 98.6 fL 81.0-99.0 MEAN CELL HGB (test code=MCH) 32.1 pg 27.0-33.0 MEAN CELL HGB CONCETRATION (test code=MCHC) 32.6 g/dL 33.0-37.0 RED CELL DISTRIBUTION WIDTH CV (test 21.8 % 11.5-14.5 code=RDW) RED CELL DISTRIBUTION WIDTH SD (test 78.1 fL 37.0-54.0 code=RDW-SD) PLATELET COUNT (test code=PLT) 207 x10 3/uL 150-400 MEAN PLATELET VOLUME (test code=MPV) 11.3 fL 7.0-9.0 MANUAL DIFF REQUIRED (test code=MDIFF) YES WBC [id number] 06:18:00 Test Item Value Reference Range Comments ANISOCYTOSIS (test code=ANISO) PLATELET ESTIMATE (test code=PLTEST) THOUSAND ADEQUATE RETIC COUNT (AUTOMATED)2018-12-03 06:18:00 Test Item Value Reference Range Comments RETIC COUNT (AUTOMATED) (test code=RETICA) 18.7 % 0.3-2.3 CBC W/AUTO [id number] 13:36:00 Test Item Value Reference Range Comments WHITE BLOOD CELL (test code=WBC) 11.86 x10 3/uL 4.5-11.0 RED BLOOD CELL (test code=RBC) 2.63 x10 6/uL 3.54-5.02 HEMOGLOBIN (test code=HGB) 8.7 g/dL 11.0-15.0 HEMATOCRIT (test code=HCT) 26.1 % 33.0-45.0 MEAN CELL VOLUME (test code=MCV) 99.2 fL 81.0-99.0 MEAN CELL HGB (test code=MCH) 33.1 pg 27.0-33.0 MEAN CELL HGB CONCETRATION (test code=MCHC) 33.3 g/dL 33.0-37.0 RED CELL DISTRIBUTION WIDTH CV (test 22.9 % 11.5-14.5 code=RDW) RED CELL DISTRIBUTION WIDTH SD (test 81.7 fL 37.0-54.0 code=RDW-SD) PLATELET COUNT (test code=PLT) 190 x10 3/uL 150-400 MEAN PLATELET VOLUME (test code=MPV) 11.0 fL 7.0-9.0 MANUAL DIFF REQUIRED (test code=MDIFF) YES WBC [id number] 13:36:00 Test Item Value Reference Range Comments SEGMENTED NEUTROPHILS (test code=SEG) 56.6 % 37-69 LYMPHOCYTE (test code=LYMPH) 27.4 % 23-55 REACTIVE LYMPH (test code=RELYMPH) 2.8 % MONOCYTE (test code=MON) 8.5 % 0-10 EOSINOPHIL (test code=EOS) 4.7 % 0.0-4.0 NUCLEATED RED BLOOD CELL (test code=NRBC) 26.4 % POIKILOCYTOSIS (test code=POIK) 1+ ANISOCYTOSIS (test code=ANISO) 2+ MICROCYTOSIS (test code=MICR) 1+ MACROCYTOSIS (test code=MACR) 1+ SPHEROCYTES (test code=SPH) 1+ OVALOCYTES (test code=OVAL) 0 PLATELET ESTIMATE (test code=PLTEST) Adequate THOUSAND ADEQUATE PLATELET MORPHOLOGY (test code=PLTMORPH) NORMAL RETIC COUNT (AUTOMATED)2018-12-02 13:36:00 Test Item Value Reference Range Comments RETIC COUNT (AUTOMATED) (test code=RETICA) 21.8 % 0.3-2.3 - NM BONE 3 [id number] 13:05:00 FAX: Shankar Odell I [place]: St: [facility] FAX: Yoly Falcon MD [phone] ---- Name: OSWALDMILADKEON [facility] : 1980 Age/S: 38/F [address] [place] [address] Unit #: [id number] Loc: [address] [address] Phys: Yoly Kang MD Acct: [id number] Dis Date: Status: ADM IN PHONE #: [phone] Exam Date: 12/02/2018 1059 FAX #: [phone] Reason: OM RT FOOT EXAMS: CPT CODE: [id number] NM BONE 3 PHASE [id number] TRIPLE PHASEBONE SCAN: HISTORY: Right foot osteomyelitis. COMPARISON EXAMS: Right foot series of 11/29/2018 no prior bone scans for comparison. TECHNIQUE: Following intravenous injection of 25 mCi 99m technetium HDP, immediate anterior imaging was performed of the feet and ankles during vascular flow phase. 10 minute blood pool images were obtained in anterior and medial projection. Delayed 2 hour imaging of the feet and ankles was performed in anterior and medial projections. FINDINGS: Vascular phase imaging shows normal, symmetrical distribution of isotope about the feet and ankles. Blood pool images are unremarkable. Delayed phase imaging shows no evidence of focally increased uptake. Mild symmetrical uptake is identified at the 1st MTP joints bilaterally compatible with mild osteoarthritic changes noted on the previous plain film series. IMPRESSION: 1. Negative three-phase bone scan of the feet and ankles. SL:01 Electronically Signed by Wade Cardona on 12/02/2018 at 3785 Reported and signed by: Jones Cardona M.D. CC: Shankar Persaud MD; Yoly Kang MD Technologist: BALAJI Priest (N)(CT);... Trnscrd Date /Time/By: 12/02/2018 (6194) : By: [facility] Orig Print D/T: S: 2018 (4421) PAGE 1 Signed ReportCBC W/AUTO [id number] 11:57:00 Test Item Value Reference Range Comments WHITE BLOOD CELL (test code=WBC) 11.86 x10 3/uL 4.5-11.0 RED BLOOD CELL (test code=RBC) 2.63 x10 6/uL 3.54-5.02 HEMOGLOBIN (test code=HGB) 8.7 g/dL 11.0-15.0 HEMATOCRIT (test code=HCT) 26.1 % 33.0-45.0 MEAN CELL VOLUME (test code=MCV) 99.2 fL 81.0-99.0 MEAN CELL HGB (test code=MCH) 33.1 pg 27.0-33.0 MEAN CELL HGB CONCETRATION (test code=MCHC) 33.3 g/dL 33.0-37.0 RED CELL DISTRIBUTION WIDTH CV (test 22.9 % 11.5-14.5 code=RDW) RED CELL DISTRIBUTION WIDTH SD (test 81.7 fL 37.0-54.0 code=RDW-SD) PLATELET COUNT (test code=PLT) 190 x10 3/uL 150-400 MEAN PLATELET VOLUME (test code=MPV) 11.0 fL 7.0-9.0 MANUAL DIFF REQUIRED (test code=MDIFF) YES WBC [id number] 11:57:00 Test Item Value Reference Range Comments SEGMENTED NEUTROPHILS (test code=SEG) 56.6 % 37-69 LYMPHOCYTE (test code=LYMPH) 27.4 % 23-55 REACTIVE LYMPH (test code=RELYMPH) 2.8 % MONOCYTE (test code=MON) 8.5 % 0-10 EOSINOPHIL (test code=EOS) 4.7 % 0.0-4.0 NUCLEATED RED BLOOD CELL (test code=NRBC) 26.4 % POIKILOCYTOSIS (test code=POIK) 1+ ANISOCYTOSIS (test code=ANISO) 2+ MICROCYTOSIS (test code=MICR) 1+ MACROCYTOSIS (test code=MACR) 1+ SPHEROCYTES (test code=SPH) 1+ OVALOCYTES (test code=OVAL) 0 PLATELET ESTIMATE (test code=PLTEST) Adequate THOUSAND ADEQUATE PLATELET MORPHOLOGY (test code=PLTMORPH) NORMAL RETIC COUNT (AUTOMATED)2018-12-02 11:57:00 Test Item Value Reference Range Comments RETIC COUNT (AUTOMATED) (test code=RETICA) % 0.3-2.3 CBC W/AUTO [id number] 11:52:00 Test Item Value Reference Range Comments WHITE BLOOD CELL (test code=WBC) 11.86 x10 3/uL 4.5-11.0 RED BLOOD CELL (test code=RBC) 2.63 x10 6/uL 3.54-5.02 HEMOGLOBIN (test code=HGB) 8.7 g/dL 11.0-15.0 HEMATOCRIT (test code=HCT) 26.1 % 33.0-45.0 MEAN CELL VOLUME (test code=MCV) 99.2 fL 81.0-99.0 MEAN CELL HGB (test code=MCH) 33.1 pg 27.0-33.0 MEAN CELL HGB CONCETRATION (test code=MCHC) 33.3 g/dL 33.0-37.0 RED CELL DISTRIBUTION WIDTH CV (test 22.9 % 11.5-14.5 code=RDW) RED CELL DISTRIBUTION WIDTH SD (test 81.7 fL 37.0-54.0 code=RDW-SD) PLATELET COUNT (test code=PLT) 190 x10 3/uL 150-400 MEAN PLATELET VOLUME (test code=MPV) 11.0 fL 7.0-9.0 MANUAL DIFF REQUIRED (test code=MDIFF) YES WBC [id number] 11:52:00 Test Item Value Reference Range Comments ANISOCYTOSIS (test code=ANISO) PLATELET ESTIMATE (test code=PLTEST) THOUSAND ADEQUATE RETIC COUNT (AUTOMATED)2018-12-02 11:52:00 Test Item Value Reference Range Comments RETIC COUNT (AUTOMATED) (test code=RETICA) % 0.3-2.3 CBC W/AUTO [id number] 11:52:00 Test Item Value Reference Range Comments WHITE BLOOD CELL (test code=WBC) 11.86 x10 3/uL 4.5-11.0 RED BLOOD CELL (test code=RBC) 2.63 x10 6/uL 3.54-5.02 HEMOGLOBIN (test code=HGB) 8.7 g/dL 11.0-15.0 HEMATOCRIT (test code=HCT) 26.1 % 33.0-45.0 MEAN CELL VOLUME (test code=MCV) 99.2 fL 81.0-99.0 MEAN CELL HGB (test code=MCH) 33.1 pg 27.0-33.0 MEAN CELL HGB CONCETRATION (test code=MCHC) 33.3 g/dL 33.0-37.0 RED CELL DISTRIBUTION WIDTH CV (test 22.9 % 11.5-14.5 code=RDW) RED CELL DISTRIBUTION WIDTH SD (test 81.7 fL 37.0-54.0 code=RDW-SD) PLATELET COUNT (test code=PLT) 190 x10 3/uL 150-400 MEAN PLATELET VOLUME (test code=MPV) 11.0 fL 7.0-9.0 MANUAL DIFF REQUIRED (test code=MDIFF) YES WBC [id number] 11:52:00 Test Item Value Reference Range Comments ANISOCYTOSIS (test code=ANISO) PLATELET ESTIMATE (test code=PLTEST) THOUSAND ADEQUATE RETIC COUNT (AUTOMATED)2018-12-02 11:52:00 Test Item Value Reference Range Comments RETIC COUNT (AUTOMATED) (test code=RETICA) % 0.3-2.3 BASIC METABOLIC [id number] 08:17:00 Test Item Value Reference Range Comments SODIUM (test code=NA) 145 mEq/L 134-147 POTASSIUM (test code=K) 4.6 mEq/L 3.4-5.0 CHLORIDE (test code=CL) 101 mEq/L 100-108 CARBON DIOXIDE (test code=CO2) 29 mEq/L 21-33 ANION GAP (test code=GAP) 20 0-20 GLUCOSE (test code=GLU) 82 mg/dL 70-110 BLOOD UREA NITROGEN (test 11 mg/dL 7-18 code=BUN) GLOMERULAR FILTRATION RATE 112.7 105-110 Units of measure=ml/min/1.73 (test code=GFR) m2 CREATININE (test code=CREAT) 0.7 mg/dL 0.6-1.3 CALCIUM (test code=CA) 8.9 mg/dL 8.0-10.5 CBC W/AUTO [id number] 07:16:00 Test Item Value Reference Range Comments WHITE BLOOD CELL (test code=WBC) 11.86 x10 3/uL 4.5-11.0 RED BLOOD CELL (test code=RBC) 2.63 x10 6/uL 3.54-5.02 HEMOGLOBIN (test code=HGB) 8.7 g/dL 11.0-15.0 HEMATOCRIT (test code=HCT) 26.1 % 33.0-45.0 MEAN CELL VOLUME (test code=MCV) 99.2 fL 81.0-99.0 MEAN CELL HGB (test code=MCH) 33.1 pg 27.0-33.0 MEAN CELL HGB CONCETRATION (test code=MCHC) 33.3 g/dL 33.0-37.0 RED CELL DISTRIBUTION WIDTH CV (test 22.9 % 11.5-14.5 code=RDW) RED CELL DISTRIBUTION WIDTH SD (test 81.7 fL 37.0-54.0 code=RDW-SD) PLATELET COUNT (test code=PLT) 190 x10 3/uL 150-400 MEAN PLATELET VOLUME (test code=MPV) 11.0 fL 7.0-9.0 LYMPHOCYTE % (test code=LY%) % 14.0-32.0 MANUAL DIFF REQUIRED (test code=MDIFF) RETIC COUNT (AUTOMATED)2018-12-02 07:16:00 Test Item Value Reference Range Comments RETIC COUNT (AUTOMATED) (test code=RETICA) % 0.3-2.3 CBC W/AUTO [id number] 09:49:00 Test Item Value Reference Range Comments WHITE BLOOD CELL (test code=WBC) 13.22 x10 3/uL 4.5-11.0 RED BLOOD CELL (test code=RBC) 2.52 x10 6/uL 3.54-5.02 HEMOGLOBIN (test code=HGB) 8.2 g/dL 11.0-15.0 HEMATOCRIT (test code=HCT) 25.2 % 33.0-45.0 MEAN CELL VOLUME (test code=MCV) 100.0 fL 81.0-99.0 MEAN CELL HGB (test code=MCH) 32.5 pg 27.0-33.0 MEAN CELL HGB CONCETRATION (test code=MCHC) 32.5 g/dL 33.0-37.0 RED CELL DISTRIBUTION WIDTH CV (test 24.8 % 11.5-14.5 code=RDW) RED CELL DISTRIBUTION WIDTH SD (test 86.5 fL 37.0-54.0 code=RDW-SD) PLATELET COUNT (test code=PLT) 188 x10 3/uL 150-400 MEAN PLATELET VOLUME (test code=MPV) 11.2 fL 7.0-9.0 MANUAL DIFF REQUIRED (test code=MDIFF) YES WBC [id number] 09:49:00 Test Item Value Reference Range Comments SEGMENTED NEUTROPHILS (test 48.1 % 37-69 code=SEG) LYMPHOCYTE (test code=LYMPH) 28.7 % 23-55 REACTIVE LYMPH (test 1.8 % code=RELYMPH) MONOCYTE (test code=MON) 16.7 % 0-10 EOSINOPHIL (test code=EOS) 2.8 % 0.0-4.0 METAMYELOCYTE (test 1.9 % 0.0-0.0 code=META) NUCLEATED RED BLOOD CELL 39.8 % (test code=NRBC) POLYCHROMASIA (test 2+ code=POLC) HYPOCHROMIA (test code=HYPO) 1+ POIKILOCYTOSIS (test 2+ code=POIK) BASOPHILIC STIPPLING (test FEW code=STP) ANISOCYTOSIS (test 3+ code=ANISO) MICROCYTOSIS (test code=MICR) FEW MACROCYTOSIS (test code=MACR) 2+ TARGET CELLS (test code=TGT) 2+ TEAR DROP CELLS (test 1+ code=TEAR) ELLIPTOCYTES (test code=ELL) 1+ SCHISTOCYTES (test code=ALIVIA) 1+ STOMATOCYTES (test code=STO) FEW SICKLE CELLS (test 2+ code=SICKL) MATTHEWS-JOLLY BODIES (test FEW code=HJB) TOXIC GRANULATION (test 1+ code=TOX) PLATELET ESTIMATE (test 180-225 THOUSAND ADEQUATE code=PLTEST) PLATELET MORPHOLOGY (test LARGE PLATELETS LARGE PLTS AND FEW code=PLTMORPH) GIANT PLTS SEEN PLT AGGREGATES: SLIGHT CBC W/AUTO [id number] 09:36:00 Test Item Value Reference Range Comments WHITE BLOOD CELL (test code=WBC) 13.22 x10 3/uL 4.5-11.0 RED BLOOD CELL (test code=RBC) 2.52 x10 6/uL 3.54-5.02 HEMOGLOBIN (test code=HGB) 8.2 g/dL 11.0-15.0 HEMATOCRIT (test code=HCT) 25.2 % 33.0-45.0 MEAN CELL VOLUME (test code=MCV) 100.0 fL 81.0-99.0 MEAN CELL HGB (test code=MCH) 32.5 pg 27.0-33.0 MEAN CELL HGB CONCETRATION (test code=MCHC) 32.5 g/dL 33.0-37.0 RED CELL DISTRIBUTION WIDTH CV (test 24.8 % 11.5-14.5 code=RDW) RED CELL DISTRIBUTION WIDTH SD (test 86.5 fL 37.0-54.0 code=RDW-SD) PLATELET COUNT (test code=PLT) 188 x10 3/uL 150-400 MEAN PLATELET VOLUME (test code=MPV) 11.2 fL 7.0-9.0 MANUAL DIFF REQUIRED (test code=MDIFF) YES WBC [id number] 09:36:00 Test Item Value Reference Range Comments ANISOCYTOSIS (test code=ANISO) PLATELET ESTIMATE (test code=PLTEST) THOUSAND ADEQUATE CBC W/AUTO [id number] 09:36:00 Test Item Value Reference Range Comments WHITE BLOOD CELL (test code=WBC) 13.22 x10 3/uL 4.5-11.0 RED BLOOD CELL (test code=RBC) 2.52 x10 6/uL 3.54-5.02 HEMOGLOBIN (test code=HGB) 8.2 g/dL 11.0-15.0 HEMATOCRIT (test code=HCT) 25.2 % 33.0-45.0 MEAN CELL VOLUME (test code=MCV) 100.0 fL 81.0-99.0 MEAN CELL HGB (test code=MCH) 32.5 pg 27.0-33.0 MEAN CELL HGB CONCETRATION (test code=MCHC) 32.5 g/dL 33.0-37.0 RED CELL DISTRIBUTION WIDTH CV (test 24.8 % 11.5-14.5 code=RDW) RED CELL DISTRIBUTION WIDTH SD (test 86.5 fL 37.0-54.0 code=RDW-SD) PLATELET COUNT (test code=PLT) 188 x10 3/uL 150-400 MEAN PLATELET VOLUME (test code=MPV) 11.2 fL 7.0-9.0 MANUAL DIFF REQUIRED (test code=MDIFF) YES WBC [id number] 09:36:00 Test Item Value Reference Range Comments ANISOCYTOSIS (test code=ANISO) PLATELET ESTIMATE (test code=PLTEST) THOUSAND ADEQUATE RETIC COUNT (AUTOMATED)2018-12-01 08:02:00 Test Item Value Reference Range Comments RETIC COUNT (AUTOMATED) (test code=RETICA) 24.7 % 0.3-2.3 CBC W/AUTO [id number] 07:55:00 Test Item Value Reference Range Comments WHITE BLOOD CELL (test code=WBC) 13.22 x10 3/uL 4.5-11.0 RED BLOOD CELL (test code=RBC) 2.52 x10 6/uL 3.54-5.02 HEMOGLOBIN (test code=HGB) 8.2 g/dL 11.0-15.0 HEMATOCRIT (test code=HCT) 25.2 % 33.0-45.0 MEAN CELL VOLUME (test code=MCV) 100.0 fL 81.0-99.0 MEAN CELL HGB (test code=MCH) 32.5 pg 27.0-33.0 MEAN CELL HGB CONCETRATION (test code=MCHC) 32.5 g/dL 33.0-37.0 RED CELL DISTRIBUTION WIDTH CV (test 24.8 % 11.5-14.5 code=RDW) RED CELL DISTRIBUTION WIDTH SD (test 86.5 fL 37.0-54.0 code=RDW-SD) PLATELET COUNT (test code=PLT) 188 x10 3/uL 150-400 MEAN PLATELET VOLUME (test code=MPV) 11.2 fL 7.0-9.0 LYMPHOCYTE % (test code=LY%) % 14.0-32.0 MANUAL DIFF REQUIRED (test code=MDIFF) BASIC METABOLIC [id number] 07:31:00 Test Item Value Reference Range Comments SODIUM (test code=NA) 139 mEq/L 134-147 POTASSIUM (test code=K) 4.4 mEq/L 3.4-5.0 CHLORIDE (test code=CL) 106 mEq/L 100-108 CARBON DIOXIDE (test code=CO2) 28 mEq/L 21-33 ANION GAP (test code=GAP) 9 0-20 GLUCOSE (test code=GLU) 81 mg/dL 70-110 BLOOD UREA NITROGEN (test 10 mg/dL 7-18 code=BUN) GLOMERULAR FILTRATION RATE 166.2 105-110 Units of measure=ml/min/1.73 (test code=GFR) m2 CREATININE (test code=CREAT) 0.5 mg/dL 0.6-1.3 CALCIUM (test code=CA) 8.6 mg/dL 8.0-10.5 CBC W/AUTO [id number] 12:24:00 Test Item Value Reference Range Comments WHITE BLOOD CELL (test code=WBC) 14.47 x10 3/uL 4.5-11.0 RED BLOOD CELL (test code=RBC) 2.56 x10 6/uL 3.54-5.02 HEMOGLOBIN (test code=HGB) 8.2 g/dL 11.0-15.0 HEMATOCRIT (test code=HCT) 25.3 % 33.0-45.0 MEAN CELL VOLUME (test code=MCV) 98.8 fL 81.0-99.0 MEAN CELL HGB (test code=MCH) 32.0 pg 27.0-33.0 MEAN CELL HGB CONCETRATION (test code=MCHC) 32.4 g/dL 33.0-37.0 RED CELL DISTRIBUTION WIDTH CV (test 25.1 % 11.5-14.5 code=RDW) RED CELL DISTRIBUTION WIDTH SD (test 83.9 fL 37.0-54.0 code=RDW-SD) PLATELET COUNT (test code=PLT) 208 x10 3/uL 150-400 MEAN PLATELET VOLUME (test code=MPV) 11.0 fL 7.0-9.0 MANUAL DIFF REQUIRED (test code=MDIFF) YES WBC [id number] 12:24:00 Test Item Value Reference Range Comments SEGMENTED NEUTROPHILS 38 % 37-69 (test code=SEG) LYMPHOCYTE (test 35 % 23-55 code=LYMPH) MONOCYTE (test code=MON) 19 % 0-10 EOSINOPHIL (test code=EOS) 6 % 0.0-4.0 BASOPHIL (test code=BASO) 1 % 0.0-2.0 METAMYELOCYTE (test 1.0 % 0.0-0.0 code=META) NUCLEATED RED BLOOD CELL 71 % (test code=NRBC) POLYCHROMASIA (test 2+ code=POLC) HYPOCHROMIA (test SLIGHT code=HYPO) POIKILOCYTOSIS (test 2+ 1+ ELLIPTOCYTES SEENFEW code=POIK) STOMATOCYTES SEEN BASOPHILIC STIPPLING (test FEW code=STP) ANISOCYTOSIS (test 2+ code=ANISO) MICROCYTOSIS (test 1+ code=MICR) MACROCYTOSIS (test 1+ code=MACR) TARGET CELLS (test 1+ code=TGT) TEAR DROP CELLS (test FEW code=TEAR) SCHISTOCYTES (test 1+ code=ALIVIA) SICKLE CELLS (test 2+ code=SICKL) MATTHEWS-JOLLY BODIES (test FEW code=HJB) PLATELET ESTIMATE (test Increased THOUSAND ADEQUATE code=PLTEST) PLATELET MORPHOLOGY (test LARGE PLATELETS SOME LARGE PLTS AND RARE code=PLTMORPH) GIANT PLTS SEEN RETIC COUNT (AUTOMATED)2018-11-30 12:24:00 Test Item Value Reference Range Comments RETIC COUNT (AUTOMATED) (test code=RETICA) 23.3 % 0.3-2.3 CBC W/AUTO [id number] 12:23:00 Test Item Value Reference Range Comments WHITE BLOOD CELL (test code=WBC) 14.47 x10 3/uL 4.5-11.0 RED BLOOD CELL (test code=RBC) 2.56 x10 6/uL 3.54-5.02 HEMOGLOBIN (test code=HGB) 8.2 g/dL 11.0-15.0 HEMATOCRIT (test code=HCT) 25.3 % 33.0-45.0 MEAN CELL VOLUME (test code=MCV) 98.8 fL 81.0-99.0 MEAN CELL HGB (test code=MCH) 32.0 pg 27.0-33.0 MEAN CELL HGB CONCETRATION (test code=MCHC) 32.4 g/dL 33.0-37.0 RED CELL DISTRIBUTION WIDTH CV (test 25.1 % 11.5-14.5 code=RDW) RED CELL DISTRIBUTION WIDTH SD (test 83.9 fL 37.0-54.0 code=RDW-SD) PLATELET COUNT (test code=PLT) 208 x10 3/uL 150-400 MEAN PLATELET VOLUME (test code=MPV) 11.0 fL 7.0-9.0 MANUAL DIFF REQUIRED (test code=MDIFF) YES WBC [id number] 12:23:00 Test Item Value Reference Range Comments SEGMENTED NEUTROPHILS 38 % 37-69 (test code=SEG) LYMPHOCYTE (test 35 % 23-55 code=LYMPH) MONOCYTE (test code=MON) 19 % 0-10 EOSINOPHIL (test code=EOS) 6 % 0.0-4.0 BASOPHIL (test code=BASO) 1 % 0.0-2.0 METAMYELOCYTE (test 1.0 % 0.0-0.0 code=META) NUCLEATED RED BLOOD CELL 71 % (test code=NRBC) POLYCHROMASIA (test 2+ code=POLC) HYPOCHROMIA (test SLIGHT code=HYPO) POIKILOCYTOSIS (test 2+ 1+ ELLIPTOCYTES SEENFEW code=POIK) STOMATOCYTES SEEN BASOPHILIC STIPPLING (test FEW code=STP) ANISOCYTOSIS (test 2+ code=ANISO) MICROCYTOSIS (test 1+ code=MICR) MACROCYTOSIS (test 1+ code=MACR) TARGET CELLS (test 1+ code=TGT) TEAR DROP CELLS (test FEW code=TEAR) SCHISTOCYTES (test 1+ code=ALIVIA) SICKLE CELLS (test 2+ code=SICKL) MATTHEWS-JOLLY BODIES (test FEW code=HJB) PLATELET ESTIMATE (test Increased THOUSAND ADEQUATE code=PLTEST) PLATELET MORPHOLOGY (test LARGE PLATELETS SOME LARGE PLTS AND RARE code=PLTMORPH) GIANT PLTS SEEN RETIC COUNT (AUTOMATED)2018-11-30 12:23:00 Test Item Value Reference Range Comments RETIC COUNT (AUTOMATED) (test code=RETICA) % 0.3-2.3 BASIC METABOLIC [id number] 07:55:00 Test Item Value Reference Range Comments SODIUM (test code=NA) 139 mEq/L 134-147 POTASSIUM (test code=K) 4.2 mEq/L 3.4-5.0 CHLORIDE (test code=CL) 107 mEq/L 100-108 CARBON DIOXIDE (test code=CO2) 26 mEq/L 21-33 ANION GAP (test code=GAP) 10 0-20 GLUCOSE (test code=GLU) 81 mg/dL 70-110 BLOOD UREA NITROGEN (test 8 mg/dL 7-18 code=BUN) GLOMERULAR FILTRATION RATE 166.2 105-110 Units of measure=ml/min/1.73 (test code=GFR) m2 CREATININE (test code=CREAT) 0.5 mg/dL 0.6-1.3 CALCIUM (test code=CA) 8.6 mg/dL 8.0-10.5 CBC W/AUTO [id number] 07:44:00 Test Item Value Reference Range Comments WHITE BLOOD CELL (test code=WBC) 14.47 x10 3/uL 4.5-11.0 RED BLOOD CELL (test code=RBC) 2.56 x10 6/uL 3.54-5.02 HEMOGLOBIN (test code=HGB) 8.2 g/dL 11.0-15.0 HEMATOCRIT (test code=HCT) 25.3 % 33.0-45.0 MEAN CELL VOLUME (test code=MCV) 98.8 fL 81.0-99.0 MEAN CELL HGB (test code=MCH) 32.0 pg 27.0-33.0 MEAN CELL HGB CONCETRATION (test code=MCHC) 32.4 g/dL 33.0-37.0 RED CELL DISTRIBUTION WIDTH CV (test 25.1 % 11.5-14.5 code=RDW) RED CELL DISTRIBUTION WIDTH SD (test 83.9 fL 37.0-54.0 code=RDW-SD) PLATELET COUNT (test code=PLT) 208 x10 3/uL 150-400 MEAN PLATELET VOLUME (test code=MPV) 11.0 fL 7.0-9.0 MANUAL DIFF REQUIRED (test code=MDIFF) YES WBC [id number] 07:44:00 Test Item Value Reference Range Comments ANISOCYTOSIS (test code=ANISO) PLATELET ESTIMATE (test code=PLTEST) THOUSAND ADEQUATE RETIC COUNT (AUTOMATED)2018-11-30 07:44:00 Test Item Value Reference Range Comments RETIC COUNT (AUTOMATED) (test code=RETICA) % 0.3-2.3 CBC W/AUTO [id number] 07:44:00 Test Item Value Reference Range Comments WHITE BLOOD CELL (test code=WBC) 14.47 x10 3/uL 4.5-11.0 RED BLOOD CELL (test code=RBC) 2.56 x10 6/uL 3.54-5.02 HEMOGLOBIN (test code=HGB) 8.2 g/dL 11.0-15.0 HEMATOCRIT (test code=HCT) 25.3 % 33.0-45.0 MEAN CELL VOLUME (test code=MCV) 98.8 fL 81.0-99.0 MEAN CELL HGB (test code=MCH) 32.0 pg 27.0-33.0 MEAN CELL HGB CONCETRATION (test code=MCHC) 32.4 g/dL 33.0-37.0 RED CELL DISTRIBUTION WIDTH CV (test 25.1 % 11.5-14.5 code=RDW) RED CELL DISTRIBUTION WIDTH SD (test 83.9 fL 37.0-54.0 code=RDW-SD) PLATELET COUNT (test code=PLT) 208 x10 3/uL 150-400 MEAN PLATELET VOLUME (test code=MPV) 11.0 fL 7.0-9.0 MANUAL DIFF REQUIRED (test code=MDIFF) YES WBC [id number] 07:44:00 Test Item Value Reference Range Comments ANISOCYTOSIS (test code=ANISO) PLATELET ESTIMATE (test code=PLTEST) THOUSAND ADEQUATE RETIC COUNT (AUTOMATED)2018-11-30 07:44:00 Test Item Value Reference Range Comments RETIC COUNT (AUTOMATED) (test code=RETICA) % 0.3-2.3 HGB [id number] 22:58:00 Test Item Value Reference Range Comments HEMOGLOBIN (test code=HGB) 8.1 g/dL 11.0-15.0 HEMATOCRIT (test code=HCT) 25.1 % 33.0-45.0 CBC W/AUTO [id number] 11:20:00 Test Item Value Reference Range Comments WHITE BLOOD CELL (test code=WBC) 17.97 x10 3/uL 4.5-11.0 RED BLOOD CELL (test code=RBC) 1.67 x10 6/uL 3.54-5.02 HEMOGLOBIN (test code=HGB) 5.8 g/dL 11.0-15.0 HEMATOCRIT (test code=HCT) 17.9 % 33.0-45.0 MEAN CELL VOLUME (test code=MCV) 107.2 fL 81.0-99.0 MEAN CELL HGB (test code=MCH) 34.7 pg 27.0-33.0 MEAN CELL HGB CONCETRATION (test code=MCHC) 32.4 g/dL 33.0-37.0 PLATELET COUNT (test code=PLT) 226 x10 3/uL 150-400 MEAN PLATELET VOLUME (test code=MPV) 11.0 fL 7.0-9.0 MANUAL DIFF REQUIRED (test code=MDIFF) YES WBC [id number] 11:20:00 Test Item Value Reference Range Comments SEGMENTED NEUTROPHILS (test code=SEG) 50.0 % 37-69 LYMPHOCYTE (test code=LYMPH) 35.5 % 23-55 MONOCYTE (test code=MON) 11.8 % 0-10 EOSINOPHIL (test code=EOS) 1.8 % 0.0-4.0 MYELOCYTE (test code=MYELO) 0.9 % 0.0-0.0 NUCLEATED RED BLOOD CELL (test code=NRBC) 27.3 % POLYCHROMASIA (test code=POLC) 1+ HYPOCHROMIA (test code=HYPO) 1+ POIKILOCYTOSIS (test code=POIK) 1+ ANISOCYTOSIS (test code=ANISO) 2+ MACROCYTOSIS (test code=MACR) 2+ ELLIPTOCYTES (test code=ELL) 1+ SICKLE CELLS (test code=SICKL) 1+ PLATELET ESTIMATE (test code=PLTEST) Adequate THOUSAND ADEQUATE PLATELET MORPHOLOGY (test code=PLTMORPH) NORMAL - XR FOOT 3 + V [id number] 09:12:00 FAX: Juan Jose Fernandez NP [place]: St: [facility] FAX: Beau Odell [phone] ---- Name: RODRIGO OSWALD [facility] : 1980 Age/S: 38/F [address] [place] [address] Unit #: [id number] Loc: [place] [address] Phys: Juan Jose Fernandez NP Acct: [id number] Dis Date: Status: ADM IN PHONE #: [phone] Exam Date: 11/29/2018830 FAX #: [phone] Reason: R/O CELLULITIS/OM EXAMS: CPT CODE: [id number] XR FOOT 3 + [place] [id number] Right foot 3views: HISTORY: Cellulitis. FINDINGS: Bony alignment in the foot is satisfactory without fracture or dislocation. No soft tissue foreign body or gas formation. There are no areas of bony destruction or abnormal periosteal reaction to indicate osteomyelitis SL: EG-H at 0912 Reported and signed by: Alessio Salinas M.D. CC: Juan Jose Fernandez PLANT ACCOUNTANT ; Shankar Persaud MD Technologist: [place] RT(R) Trnscrd Date/Time/By: 2018 (911) : By: JoaquinG Orig Print D/T: S: 11/29/2018 (15) PAGE 1 Signed ReportCBC W/AUTO [id number] 08:43:00 Test Item Value Reference Range Comments WHITE BLOOD CELL (test code=WBC) 17.97 x10 3/uL 4.5-11.0 RED BLOOD CELL (test code=RBC) 1.67 x10 6/uL 3.54-5.02 HEMOGLOBIN (test code=HGB) 5.8 g/dL 11.0-15.0 HEMATOCRIT (test code=HCT) 17.9 % 33.0-45.0 MEAN CELL VOLUME (test code=MCV) 107.2 fL 81.0-99.0 MEAN CELL HGB (test code=MCH) 34.7 pg 27.0-33.0 MEAN CELL HGB CONCETRATION (test code=MCHC) 32.4 g/dL 33.0-37.0 PLATELET COUNT (test code=PLT) 226 x10 3/uL 150-400 MEAN PLATELET VOLUME (test code=MPV) 11.0 fL 7.0-9.0 MANUAL DIFF REQUIRED (test code=MDIFF) YES WBC [id number] 08:43:00 Test Item Value Reference Range Comments ANISOCYTOSIS (test code=ANISO) PLATELET ESTIMATE (test code=PLTEST) THOUSAND ADEQUATE CBC W/AUTO [id number] 08:43:00 Test Item Value Reference Range Comments WHITE BLOOD CELL (test code=WBC) 17.97 x10 3/uL 4.5-11.0 RED BLOOD CELL (test code=RBC) 1.67 x10 6/uL 3.54-5.02 HEMOGLOBIN (test code=HGB) 5.8 g/dL 11.0-15.0 HEMATOCRIT (test code=HCT) 17.9 % 33.0-45.0 MEAN CELL VOLUME (test code=MCV) 107.2 fL 81.0-99.0 MEAN CELL HGB (test code=MCH) 34.7 pg 27.0-33.0 MEAN CELL HGB CONCETRATION (test code=MCHC) 32.4 g/dL 33.0-37.0 PLATELET COUNT (test code=PLT) 226 x10 3/uL 150-400 MEAN PLATELET VOLUME (test code=MPV) 11.0 fL 7.0-9.0 MANUAL DIFF REQUIRED (test code=MDIFF) YES WBC [id number] 08:43:00 Test Item Value Reference Range Comments ANISOCYTOSIS (test code=ANISO) PLATELET ESTIMATE (test code=PLTEST) THOUSAND ADEQUATE BASIC METABOLIC [id number] 08:20:00 Test Item Value Reference Range Comments SODIUM (test code=NA) 138 mEq/L 134-147 POTASSIUM (test code=K) 3.9 mEq/L 3.4-5.0 CHLORIDE (test code=CL) 110 mEq/L 100-108 CARBON DIOXIDE (test code=CO2) 23 mEq/L 21-33 ANION GAP (test code=GAP) 9 0-20 GLUCOSE (test code=GLU) 112 mg/dL 70-110 BLOOD UREA NITROGEN (test 7 mg/dL 7-18 code=BUN) GLOMERULAR FILTRATION RATE 134.7 105-110 Units of measure=ml/min/1.73 (test code=GFR) m2 CREATININE (test code=CREAT) 0.6 mg/dL 0.6-1.3 CALCIUM (test code=CA) 7.8 mg/dL 8.0-10.5 [id number] 08:20:00 Test Item Value Reference Range Comments PHOSPHOROUS (test code=PHOS) 4.2 mg/dL 2.5-4.9 [id number] 08:20:00 Test Item Value Reference Range Comments MAGNESIUM (test code=MAG) 1.70 mg/dL 1.8-2.4 UR HCG [id number] 06:20:00 Test Item Value Reference Range Comments UR HCG QUAL (test code=HCGQLU) NEGATIVE NEGATIVE URINALYSIS [id number] 06:20:00 Test Item Value Reference Range Comments UA COLOR (test code=COLU) YELLOW YEL/STRAW UA APPEARANCE (test code=APPU) CLEAR CLEAR UA GLUCOSE DIPSTICK (test code=DGLUU) NEGATIVE NEGATIVE UA BILIRUBIN DIPSTICK (test code=BILU) NEGATIVE NEGATIVE UA KETONE DIPSTICK (test code=KETU) NEGATIVE NEGATIVE UA SPECIFIC GRAVITY (test code=SGU) 1.010 1.005-1.030 UA BLOOD DIPSTICK (test code=HALEY) 1+ NEGATIVE UA PH DIPSTICK (test code=NEERU) 5.0 5.0-7.0 UA PROTEIN DIPSTICK (test code=PROU) NEGATIVE NEGATIVE UA UROBILINIOGEN DIPSTICK (test code=URO) 0.2 mg/dL 0.2-1.0 UA NITRITE DIPSTICK (test code=RAJENDRA) NEGATIVE NEGATIVE UA LEUKOCYTE ESTERASE DIPSTICK (test NEGATIVE NEGATIVE code=LEUU) UA WBC (test code=WBCU) 0-3 WBC/HPF 0-3 UA RBC (test code=RBCU) 0-3 RBC/HPF 0-3 UA BACTERIA (test code=BACU) NONE SEEN /HPF NONE SEEN UA SQUAMOUS CELLS (test code=SQU) 0-5 /HPF NONE SEEN UA MUCUS (test code=MUCU) TRACE /LPF NONE SEEN COMMENTS: Clean CatchUA CULT [id number] 06:20:00 Test Item Value Reference Range Comments UA CULTURE NEEDED? (test NO, WBC<10 Criteria Culture Chk Criteria not met, Urine code=UACULT) Culture cancelled. COMMENTS: Clean CatchPROCALCITONIN (PCT)2018-11-29 00:21:00 Test Item Value Reference Range Comments PROCALCITONIN (PCT) (test 0.23 ng/mL 0.00-0.05 PROCALCITONIN (PCT) NORMAL code=PROCAL) RANGE (ADULT): <0.05 NG/ML. * a concentration <0.5 ng/mL represents a low risk of severe sepsis and/or septic shock.* a concentration >2 ng/mL represents a high risk of severe sepsis and/or septic shock.Nevertheless, concentrations <0.5 ng/mL do not exclude aninfection, on account of localized infections (withoutsystemic signs) which can be associated with such lowconcentrations, or a systemic infection in its initialstages (< 6 hours). Furthermore, increased procalcitonincan occur without infection. PCT concentrations between 0.5and 2.0 ng/mL should be interpreted taking into account thepatient's history. It is recommended to retest PCT within6-24 hours if any concentrations <2 ng/mL are obtained. - XR CHEST 1 [id number] 23:30:00 FAX: Na Chauhan [place]: St: ADM Name: OSWALDMILADKEON [facility] : 1980 Age/S: 38/F [address] [place] [address] Unit#: [id number] [place]: [place] [address] Phys: Na Chauhan DO Acct: [id number] Dis Date: Status: ADM IN PHONE #: [phone] Exam Date: 11/28/2018 2311 FAX #: [phone] Reason: fever EXAMS: CPT CODE: [id number] XR CHEST 1 V [id number] EXAM: CR, XR chest one view: 11/28/2018, 2307 hours HISTORY: fever TECHNIQUE: 1 view of the chest. COMPARISON: None available. FINDINGS: Trachea is midline. A right venous catheter in place, tip at atriocaval junction. Heart is enlarged. Mild pulmonary vascular congestion seen. There is no airspace consolidation, pleural effusion or pneumothorax. No acute osseous abnormalities are seen. IMPRESSION: 1. Cardiomegaly. Mild pulmonary vascular congestion. 2. Right IJ venous catheter in place, tip at atriocaval junction. SL: [ JSYED-H] at 2330 Reported and signed by: Nitesh Garcia M.D. CC: Na Chauhan DO Technologist: RT Yisel(Kaelyn) Trnscrd Date/Time/By: 11/28/2018 (8680) : By: [id number] Orig Print D/T: S: 11/28/2018 (2690) PAGE 1 Signed ReportTROPONIN-I [id number] 23:27:00 Test Item Value Reference Range Comments TROPONIN-I RAPID (test 0.00 ng/mL 0.00-0.08 Performed by certified steam clean machine operator code=TROPIRAP) at [facility] Negative: <=0.08 Positive: >=0.09An elevated troponin value alone is not sufficient todiagnose a myocardial infarction. Rather, the patient sclinical presentation (history, physical exam) and ECGshould be used in conjunction with troponin in thediagnostic evaluation of suspected myocardial infarction. Aserial sampling protocol is recommended to facilitate the identification of temporal changes in troponin levels characteristic of AL. CHEMISTRY 8 [id number] 23:26:00 Test Item Value Reference Range Comments ISTAT-SODIUM (test code=NAP) MMOL/L 134-147 ISTAT-POTASSIUM (test code=KP) MMOL/L 3.4-5.0 ISTAT-CHLORIDE (test code=CLP) MMOL/L 100-108 ISTAT CARBON DIOXIDE (test code=ISTAT-CO2) mmol/L 21-33 ISTAT CALCIUM IONIZED (test code=ISTAT-MUKESH) MG/DL 1.12-1.32 ISTAT-GLUCOSE (test code=GLUP) MG/DL 70-110 ISTAT-BUN (test code=BUNP) MG/DL 7-18 BEDSIDE CREATININE (test code=CREATBED) MG/DL 0.6-1.3 GLOMERULAR FILTRATION RATE POC (test code=GFRBED) 229 ML/MIN CHEMISTRY 8 [id number] 23:26:00 Test Item Value Reference Range Comments ISTAT-SODIUM (test code=NAP) 139 MMOL/L 134-147 ISTAT-POTASSIUM (test 4.1 MMOL/L 3.4-5.0 code=KP) ISTAT-CHLORIDE (test 105 MMOL/L 100-108 Performed by certified code=CLP) steam clean machine operator at [facility] ISTAT CARBON DIOXIDE (test 25.0 mmol/L 21-33 code=ISTAT-CO2) ISTAT CALCIUM IONIZED (test 1.16 MG/DL 1.12-1.32 code=ISTAT-MUKESH) ISTAT-GLUCOSE (test 78 MG/DL 70-110 code=GLUP) ISTAT-BUN (test code=BUNP) 6 MG/DL 7-18 BEDSIDE CREATININE (test 0.4 MG/DL 0.6-1.3 code=CREATBED) GLOMERULAR FILTRATION RATE 229 ML/MIN POC (test code=GFRBED) LACTIC ACID [id number] 23:20:00 Test Item Value Reference Range Comments LACTIC ACID POC (test 0.8 MMOL/L 0.90-1.70 Performed by certified code=LACTP) steam clean machine operator at [facility] HEPATIC FUNCTION [id number] 23:12:00 Test Item Value Reference Range Comments TOTAL PROTEIN (test code=PROT) 8.4 g/dL 6.4-8.2 ALBUMIN (test code=ALB) 3.00 g/dL 3.4-5.0 BILIRUBIN TOTAL (test code=BILT) 1.90 mg/dL 0.0-1.0 BILIRUBIN DIRECT (test code=BILD) 0.70 MG/DL 0.0-0.30 BILIRUBIN INDIRECT (test code=BILIND) 1.20 MG/DL SGOT/AST (test code=AST) 127 IUnit/L 15-37 SGPT/ALT (test code=ALT) 74 IUnit/L 15-65 ALKALINE PHOSPHATASE TOTAL (test code=ALKP) 175 IUnit/L 20-125 CBC W/AUTO [id number] 23:12:00 Test Item Value Reference Range Comments WHITE BLOOD CELL (test code=WBC) 21.28 x10 3/uL 4.5-11.0 RED BLOOD CELL (test code=RBC) 1.75 x10 6/uL 3.54-5.02 HEMOGLOBIN (test code=HGB) 6.1 g/dL 11.0-15.0 HEMATOCRIT (test code=HCT) 18.3 % 33.0-45.0 MEAN CELL VOLUME (test code=MCV) 104.6 fL 81.0-99.0 MEAN CELL HGB (test code=MCH) 34.9 pg 27.0-33.0 MEAN CELL HGB CONCETRATION (test code=MCHC) 33.3 g/dL 33.0-37.0 RED CELL DISTRIBUTION WIDTH CV (test 29.7 % 11.5-14.5 code=RDW) RED CELL DISTRIBUTION WIDTH SD (test 106.2 fL 37.0-54.0 code=RDW-SD) PLATELET COUNT (test code=PLT) 228 x10 3/uL 150-400 MEAN PLATELET VOLUME (test code=MPV) 10.4 fL 7.0-9.0 MANUAL DIFF REQUIRED (test code=MDIFF) YES WBC [id number] 23:12:00 Test Item Value Reference Range Comments SEGMENTED NEUTROPHILS (test code=SEG) 54.3 % 37-69 LYMPHOCYTE (test code=LYMPH) 30.5 % 23-55 MONOCYTE (test code=MON) 10.5 % 0-10 EOSINOPHIL (test code=EOS) 4.7 % 0.0-4.0 NUCLEATED RED BLOOD CELL (test code=NRBC) 47.6 % POLYCHROMASIA (test code=POLC) 2+ HYPOCHROMIA (test code=HYPO) 1+ POIKILOCYTOSIS (test code=POIK) 3+ ANISOCYTOSIS (test code=ANISO) 2+ MICROCYTOSIS (test code=MICR) 1+ MACROCYTOSIS (test code=MACR) 1+ TARGET CELLS (test code=TGT) 1+ TEAR DROP CELLS (test code=TEAR) 1+ SICKLE CELLS (test code=SICKL) 2+ PLATELET ESTIMATE (test code=PLTEST) Adequate THOUSAND ADEQUATE RETIC COUNT (AUTOMATED)2018-11-28 23:12:00 Test Item Value Reference Range Comments RETIC COUNT (AUTOMATED) (test code=RETICA) 33.7 % 0.3-2.3 CBC W/AUTO [id number] 23:10:00 Test Item Value Reference Range Comments WHITE BLOOD CELL (test code=WBC) 21.28 x10 3/uL 4.5-11.0 RED BLOOD CELL (test code=RBC) 1.75 x10 6/uL 3.54-5.02 HEMOGLOBIN (test code=HGB) 6.1 g/dL 11.0-15.0 HEMATOCRIT (test code=HCT) 18.3 % 33.0-45.0 MEAN CELL VOLUME (test code=MCV) 104.6 fL 81.0-99.0 MEAN CELL HGB (test code=MCH) 34.9 pg 27.0-33.0 MEAN CELL HGB CONCETRATION (test code=MCHC) 33.3 g/dL 33.0-37.0 RED CELL DISTRIBUTION WIDTH CV (test 29.7 % 11.5-14.5 code=RDW) RED CELL DISTRIBUTION WIDTH SD (test 106.2 fL 37.0-54.0 code=RDW-SD) PLATELET COUNT (test code=PLT) 228 x10 3/uL 150-400 MEAN PLATELET VOLUME (test code=MPV) 10.4 fL 7.0-9.0 MANUAL DIFF REQUIRED (test code=MDIFF) YES WBC [id number] 23:10:00 Test Item Value Reference Range Comments ANISOCYTOSIS (test code=ANISO) PLATELET ESTIMATE (test code=PLTEST) THOUSAND ADEQUATE RETIC COUNT (AUTOMATED)2018-11-28 23:10:00 Test Item Value Reference Range Comments RETIC COUNT (AUTOMATED) (test code=RETICA) 33.7 % 0.3-2.3 CBC W/AUTO [id number] 23:10:00 Test Item Value Reference Range Comments WHITE BLOOD CELL (test code=WBC) 21.28 x10 3/uL 4.5-11.0 RED BLOOD CELL (test code=RBC) 1.75 x10 6/uL 3.54-5.02 HEMOGLOBIN (test code=HGB) 6.1 g/dL 11.0-15.0 HEMATOCRIT (test code=HCT) 18.3 % 33.0-45.0 MEAN CELL VOLUME (test code=MCV) 104.6 fL 81.0-99.0 MEAN CELL HGB (test code=MCH) 34.9 pg 27.0-33.0 MEAN CELL HGB CONCETRATION (test code=MCHC) 33.3 g/dL 33.0-37.0 RED CELL DISTRIBUTION WIDTH CV (test 29.7 % 11.5-14.5 code=RDW) RED CELL DISTRIBUTION WIDTH SD (test 106.2 fL 37.0-54.0 code=RDW-SD) PLATELET COUNT (test code=PLT) 228 x10 3/uL 150-400 MEAN PLATELET VOLUME (test code=MPV) 10.4 fL 7.0-9.0 MANUAL DIFF REQUIRED (test code=MDIFF) YES WBC [id number] 23:10:00 Test Item Value Reference Range Comments ANISOCYTOSIS (test code=ANISO) PLATELET ESTIMATE (test code=PLTEST) THOUSAND ADEQUATE RETIC COUNT (AUTOMATED)2018-11-28 23:10:00 Test Item Value Reference Range Comments RETIC COUNT (AUTOMATED) (test code=RETICA) 33.7 % 0.3-2.3 PROTHROMBIN [id number] 23:07:00 Test Item Value Reference Range Comments PROTHROMBIN TIME PATIENT 14.8 SECONDS 9.3-12.9 (test code=PTP) INTERNATIONAL NORMAL RATIO 1.3 0.8-1.2 TARGET INR BY (test code=INR) INDICATION Indication INR1. Prophylaxis of venous thrombosis 2.0 - 3.0 (orthopedic surgery), Prophylaxis of venous thrombosis (other than high-risk surgery), Treatment of Deep Vein Thrombosis/Pulmonary Embolism, Prevention of systemic embolism - Tissue heart valves, Acute Myocardial Infarction (to prevent systemic embolism), Valvular heart disease, Atrial Fibrillation, Bileaflet mechanical valve in aortic position.2. Mechanical prosthetic valves (high risk), 2.5 - 3.5 Presence of Lupus Anticoagulant or Antiphospholipid Antibodies, Prevention of systemic embolism - Acute Myocardial Infarction (to prevent recurrent infarct). THROMBOPLASTIN TIME [id number] 23:07:00 Test Item Value Reference Range Comments THROMBOPLASTIN TIME PARTIAL 36.8 Seconds 25.0-39.5 Therapeutic Range: (test code=PTT) 61.8-83.8 Sec Effective 09/17/2013 CBC W/AUTO [id number] 22:53:00 Test Item Value Reference Range Comments WHITE BLOOD CELL (test code=WBC) 21.28 x10 3/uL 4.5-11.0 RED BLOOD CELL (test code=RBC) 1.75 x10 6/uL 3.54-5.02 HEMOGLOBIN (test code=HGB) 6.1 g/dL 11.0-15.0 HEMATOCRIT (test code=HCT) 18.3 % 33.0-45.0 MEAN CELL VOLUME (test code=MCV) 104.6 fL 81.0-99.0 MEAN CELL HGB (test code=MCH) 34.9 pg 27.0-33.0 MEAN CELL HGB CONCETRATION (test code=MCHC) 33.3 g/dL 33.0-37.0 RED CELL DISTRIBUTION WIDTH CV (test 29.7 % 11.5-14.5 code=RDW) RED CELL DISTRIBUTION WIDTH SD (test 106.2 fL 37.0-54.0 code=RDW-SD) PLATELET COUNT (test code=PLT) 228 x10 3/uL 150-400 MEAN PLATELET VOLUME (test code=MPV) 10.4 fL 7.0-9.0 LYMPHOCYTE % (test code=LY%) % 14.0-32.0 MANUAL DIFF REQUIRED (test code=MDIFF) RETIC COUNT (AUTOMATED)2018-11-28 22:53:00 Test Item Value Reference Range Comments RETIC COUNT (AUTOMATED) (test code=RETICA) 33.7 % 0.3-2.3 [id number] 11:06:00 Test Item Value Reference Range Comments HEMOGLOBIN (BEAKER) (test jpkt=874) 7.1 GM/DL 11.2-15.7 CBC W/PLT COUNT & AUTO [id number] 09:43:00 Test Item Value Reference Range Comments WHITE BLOOD CELL COUNT (BEAKER) (test okmv=706) 16.2 K/ L 3.5-10.5 RED BLOOD CELL COUNT (BEAKER) (test ochz=396) 2.13 M/ L 3.93-5.22 HEMOGLOBIN (BEAKER) (test iuxi=830) 6.7 GM/DL 11.2-15.7 HEMATOCRIT (BEAKER) (test jjcu=422) 20.8 % 34.1-44.9 MEAN CORPUSCULAR VOLUME (BEAKER) (test xcyz=984) 97.7 fL 79.4-94.8 MEAN CORPUSCULAR HEMOGLOBIN (BEAKER) (test 31.5 pg 25.6-32.2 lnmc=728) MEAN CORPUSCULAR HEMOGLOBIN CONC (BEAKER) (test 32.2 GM/DL 32.2-35.5 tdzg=984) RED CELL DISTRIBUTION WIDTH (BEAKER) (test 19.5 % 11.7-14.4 vwpi=183) PLATELET COUNT (BEAKER) (test kpec=412) 293 K/CU MM 150-450 MEAN PLATELET VOLUME (BEAKER) (test ajbe=333) 11.0 fL 9.4-12.3 NUCLEATED RED BLOOD CELLS (BEAKER) (test 1 /100 WBC 0-0 gamv=283) (CELLAVISION MANUAL DIFF)2018-10-04 09:43:00 Test Item Value Reference Range Comments NEUTROPHILS - REL (CELLAVISION)(BEAKER) (test 41 % vius=7763) LYMPHOCYTES - REL (CELLAVISION)(BEAKER) (test 43 % urzf=4063) MONOCYTES - REL (CELLAVISION)(BEAKER) (test 7 % rmac=6290) EOSINOPHILS - REL (CELLAVISION)(BEAKER) (test 8 % uayf=9691) NEUTROPHILS - ABS (CELLAVISION)(BEAKER) (test 6.64 K/ul 1.56-6.13 tmnm=7136) LYMPHOCYTES - ABS (CELLAVISION)(BEAKER) (test 6.97 K/ul 1.18-3.74 mzef=6977) MONOCYTES - ABS (CELLAVISION)(BEAKER) (test 1.13 K/uL 0.24-0.36 pqdo=8003) EOSINOPHILS - ABS (CELLAVISION)(BEAKER) (test 1.30 K/uL 0.04-0.36 xrvb=4648) TOTAL COUNTED (BEAKER) (test wjns=4256) 100 MANUAL NRBC PER 100 CELLS (BEAKER) (test 2 /100 WBC 0-0 oplk=0650) WBC MORPHOLOGY (BEAKER) (test bozo=962) Normal LARGE PLT(BEAKER) (test etsw=8182) Present POLYCHROMATOPHILLIC RBCS(BEAKER) (test huec=481) 2+ moderate HYPOCHROMIA (BEAKER) (test rchc=080) 1+ few TARGET CELLS (BEAKER) (test vcke=119) 2+ moderate SICKLE CELLS (BEAKER) (test gyft=336) 2+ moderate MATTHEWS-JOLLY BODIES (BEAKER) (test jczl=757) 1+ few ARTIFACT (CELLAVISION)(BEAKER) (test ubed=2462) Present PLATELET CONCENTRATION (CELLAVISION)(BEAKER) Adequate (test nwlf=4892) Received comment: User comments: Slide comments:BASIC METABOLIC [id number] 06:18:00 Test Item Value Reference Range Comments SODIUM (BEAKER) (test 138 meq/L 136-145 mmjm=972) POTASSIUM (BEAKER) (test 4.5 meq/L 3.5-5.1 bsjs=598) CHLORIDE (BEAKER) (test 102 meq/L 98-107 vwbs=318) CO2 (BEAKER) (test 30 meq/L 22-29 lgcn=656) BLOOD UREA NITROGEN 13 mg/dL 7-21 (BEAKER) (test etek=668) CREATININE (BEAKER) (test 0.62 mg/dL 0.57-1.25 iuim=300) GLUCOSE RANDOM (BEAKER) 94 mg/dL 70-105 (test bllj=193) CALCIUM (BEAKER) (test 8.9 mg/dL 8.4-10.2 taxz=742) EGFR (BEAKER) (test 130 mL/min/1.73 sq m ESTIMATED GFR IS NOT jzjj=6044) ACCURATE CREATININE CLEARANCE IN PREDICTING GLOMERULAR FILTRATION RATE. ESTIMATED GFR IS NOT APPLICABLE FOR DIALYSIS PATIENTS. Specimen slightly ictericCBC W/PLT COUNT & AUTO [id number] 13:29 :00 Test Item Value Reference Range Comments WHITE BLOOD CELL COUNT (BEAKER) (test xbpf=105) 15.0 K/ L 3.5-10.5 RED BLOOD CELL COUNT (BEAKER) (test jcnp=633) 2.07 M/ L 3.93-5.22 HEMOGLOBIN (BEAKER) (test bbmy=940) 6.6 GM/DL 11.2-15.7 HEMATOCRIT (BEAKER) (test adfl=390) 20.3 % 34.1-44.9 MEAN CORPUSCULAR VOLUME (BEAKER) (test bawt=423) 98.1 fL 79.4-94.8 MEAN CORPUSCULAR HEMOGLOBIN (BEAKER) (test 31.9 pg 25.6-32.2 tqal=596) MEAN CORPUSCULAR HEMOGLOBIN CONC (BEAKER) (test 32.5 GM/DL 32.2-35.5 bwcn=966) RED CELL DISTRIBUTION WIDTH (BEAKER) (test 19.6 % 11.7-14.4 lxzo=338) PLATELET COUNT (BEAKER) (test ferz=341) 281 K/CU MM 150-450 MEAN PLATELET VOLUME (BEAKER) (test dply=820) 10.5 fL 9.4-12.3 NUCLEATED RED BLOOD CELLS (BEAKER) (test 1 /100 WBC 0-0 qaln=929) (CELLAVISION MANUAL DIFF)2018-10-03 13:29:00 Test Item Value Reference Range Comments NEUTROPHILS - REL (CELLAVISION)(BEAKER) (test 48 % voqo=4243) LYMPHOCYTES - REL (CELLAVISION)(BEAKER) (test 25 % mews=4822) MONOCYTES - REL (CELLAVISION)(BEAKER) (test 15 % wjtj=8027) EOSINOPHILS - REL (CELLAVISION)(BEAKER) (test 9 % fqry=2661) BANDS - REL (CELLAVISION)(BEAKER) (test 1 % 0-10 curi=1301) ATYPICAL LYMPHOCYTES - REL (CELLAVISION)(BEAKER) 2 % 0-0 (test jwhg=0330) NEUTROPHILS - ABS (CELLAVISION)(BEAKER) (test 7.20 K/ul 1.56-6.13 qmwx=0037) LYMPHOCYTES - ABS (CELLAVISION)(BEAKER) (test 3.75 K/ul 1.18-3.74 rfix=4182) MONOCYTES - ABS (CELLAVISION)(BEAKER) (test 2.25 K/uL 0.24-0.36 qxcq=3340) EOSINOPHILS - ABS (CELLAVISION)(BEAKER) (test 1.35 K/uL 0.04-0.36 ovhy=3508) BANDS - ABS (CELLAVISION)(BEAKER) (test 0.15 K/uL 0.00-0.80 rzfj=0988) ATYPICAL LYMPHOCYTES - ABS (CELLAVISION)(BEAKER) 0.30 K/uL 0.00-0.00 (test egdv=3913) TOTAL COUNTED (BEAKER) (test ppbp=8756) 100 MANUAL NRBC PER 100 CELLS (BEAKER) (test 2 /100 WBC 0-0 dvkq=6890) SMUDGE CELLS (BEAKER) (test jldk=0483) Present GIANT PLATELETS (BEAKER) (test falu=420) Present POLYCHROMATOPHILLIC RBCS(BEAKER) (test tguc=463) 1+ few ANISOCYTOSIS (BEAKER) (test mdoq=369) 2+ moderate MACROCYTES (BEAKER) (test yjqf=953) 2+ moderate TARGET CELLS (BEAKER) (test omme=367) 1+ few SCHISTOCYTES (BEAKER) (test vbvs=130) 1+ few SICKLE CELLS (BEAKER) (test qxtb=340) 2+ moderate OVALOCYTES (BEAKER) (test ixco=660) 1+ few HELMET CELLS (CELLAVISION)(BEAKER) (test 1+ few zpnb=6433) PLATELET CONCENTRATION (CELLAVISION)(BEAKER) Adequate (test iytg=0300) Received comment: User comments: Slide comments:BASIC METABOLIC [id number] 07:09:00 Test Item Value Reference Range Comments SODIUM (BEAKER) (test 140 meq/L 136-145 uxsa=842) POTASSIUM (BEAKER) (test 4.3 meq/L 3.5-5.1 coqb=581) CHLORIDE (BEAKER) (test 105 meq/L 98-107 fdok=974) CO2 (BEAKER) (test 29 meq/L 22-29 xuez=166) BLOOD UREA NITROGEN 14 mg/dL 7-21 (BEAKER) (test lyyv=959) CREATININE (BEAKER) (test 0.63 mg/dL 0.57-1.25 mepf=507) GLUCOSE RANDOM (BEAKER) 102 mg/dL 70-105 (test skld=981) CALCIUM (BEAKER) (test 8.5 mg/dL 8.4-10.2 fzrz=726) EGFR (BEAKER) (test 128 mL/min/1.73 sq m ESTIMATED GFR IS NOT ftpn=3148) ACCURATE CREATININE CLEARANCE IN PREDICTING GLOMERULAR FILTRATION RATE. ESTIMATED GFR IS NOT APPLICABLE FOR DIALYSIS PATIENTS. CBC W/PLT COUNT & AUTO [id number] 12:29:00 Test Item Value Reference Range Comments WHITE BLOOD CELL COUNT (BEAKER) (test nxav=324) 14.2 K/ L 3.5-10.5 RED BLOOD CELL COUNT (BEAKER) (test iafo=442) 2.11 M/ L 3.93-5.22 HEMOGLOBIN (BEAKER) (test nuxl=803) 6.7 GM/DL 11.2-15.7 HEMATOCRIT (BEAKER) (test ybpb=205) 20.6 % 34.1-44.9 MEAN CORPUSCULAR VOLUME (BEAKER) (test rbzr=160) 97.6 fL 79.4-94.8 MEAN CORPUSCULAR HEMOGLOBIN (BEAKER) (test 31.8 pg 25.6-32.2 noji=017) MEAN CORPUSCULAR HEMOGLOBIN CONC (BEAKER) (test 32.5 GM/DL 32.2-35.5 eoxi=765) RED CELL DISTRIBUTION WIDTH (BEAKER) (test 20.2 % 11.7-14.4 uupc=929) PLATELET COUNT (BEAKER) (test uzdv=339) 280 K/CU MM 150-450 MEAN PLATELET VOLUME (BEAKER) (test idft=855) 10.3 fL 9.4-12.3 NUCLEATED RED BLOOD CELLS (BEAKER) (test 1 /100 WBC 0-0 pglv=524) (CELLAVISION MANUAL DIFF)2018-10-02 12:29:00 Test Item Value Reference Range Comments NEUTROPHILS - REL (CELLAVISION)(BEAKER) (test 43 % nznu=4370) LYMPHOCYTES - REL (CELLAVISION)(BEAKER) (test 35 % hcpz=2031) MONOCYTES - REL (CELLAVISION)(BEAKER) (test 8 % zjjj=4552) EOSINOPHILS - REL (CELLAVISION)(BEAKER) (test 8 % zcbd=9681) BASOPHILS - REL (CELLAVISION)(BEAKER) (test 2 % ubmm=9281) MYELOCYTES - REL (CELLAVISION)(BEAKER) (test 1 % 0-0 qdmm=3772) PROMYELOCYTES - REL (CELLAVSION)(BEAKER) (test 1 % 0-0 rrlz=5025) ATYPICAL LYMPHOCYTES - REL (CELLAVISION)(BEAKER) 2 % 0-0 (test rlqv=6118) NEUTROPHILS - ABS (CELLAVISION)(BEAKER) (test 6.11 K/ul 1.56-6.13 erjh=4908) LYMPHOCYTES - ABS (CELLAVISION)(BEAKER) (test 4.97 K/ul 1.18-3.74 buqf=6516) MONOCYTES - ABS (CELLAVISION)(BEAKER) (test 1.14 K/uL 0.24-0.36 jugb=0909) EOSINOPHILS - ABS (CELLAVISION)(BEAKER) (test 1.14 K/uL 0.04-0.36 ejrm=0158) BASOPHILS - ABS (CELLAVISION)(BEAKER) (test 0.28 K/uL 0.01-0.08 icbf=7531) MYELOCYTES-ABS (CELLAVISION)(BEAKER) (test 0.14 K/uL 0.00-0.00 vzfe=1144) PROMYELOCYTES - ABS (CELLAVISION)(BEAKER) (test 0.14 K/uL 0.00-0.00 eikm=4420) ATYPICAL LYMPHOCYTES - ABS (CELLAVISION)(BEAKER) 0.28 K/uL 0.00-0.00 (test bife=2970) TOTAL COUNTED (BEAKER) (test rvdm=5751) 100 MANUAL NRBC PER 100 CELLS (BEAKER) (test 2 /100 WBC 0-0 iiuy=4875) SMUDGE CELLS (BEAKER) (test hnul=3008) Present GIANT PLATELETS (BEAKER) (test ytpp=358) Present POLYCHROMATOPHILLIC RBCS(BEAKER) (test wogk=196) 1+ few ANISOCYTOSIS (BEAKER) (test xfvx=929) 2+ moderate MACROCYTES (BEAKER) (test gpzx=299) 2+ moderate TARGET CELLS (BEAKER) (test plav=170) 1+ few SCHISTOCYTES (BEAKER) (test spko=689) 1+ few SICKLE CELLS (BEAKER) (test yqje=975) 1+ few PLATELET CONCENTRATION (CELLAVISION)(BEAKER) Adequate (test vgfw=8001) Received comment: User comments: Slide comments:[id number] 07:28:00 Test Item Value Reference Range Comments FERRITIN (BEAKER) (test tvaj=902) 76805 ng/mL 5-275 BASIC METABOLIC [id number] 06:25:00 Test Item Value Reference Range Comments SODIUM (BEAKER) (test 139 meq/L 136-145 jkgz=352) POTASSIUM (BEAKER) (test 3.9 meq/L 3.5-5.1 sjft=472) CHLORIDE (BEAKER) (test 103 meq/L 98-107 kwhe=853) CO2 (BEAKER) (test 30 meq/L 22-29 bkrn=263) BLOOD UREA NITROGEN 15 mg/dL 7-21 (BEAKER) (test fscn=674) CREATININE (BEAKER) (test 0.63 mg/dL 0.57-1.25 ysli=580) GLUCOSE RANDOM (BEAKER) 106 mg/dL 70-105 (test ltqh=734) CALCIUM (BEAKER) (test 8.4 mg/dL 8.4-10.2 lvek=848) EGFR (BEAKER) (test 128 mL/min/1.73 sq m ESTIMATED GFR IS NOT neun=2623) ACCURATE CREATININE CLEARANCE IN PREDICTING GLOMERULAR FILTRATION RATE. ESTIMATED GFR IS NOT APPLICABLE FOR DIALYSIS PATIENTS. Specimen slightly ictericCBC W/PLT COUNT & AUTO [id number] 10:00 :00 Test Item Value Reference Range Comments WHITE BLOOD CELL COUNT (BEAKER) (test uhiq=163) 14.6 K/ L 3.5-10.5 RED BLOOD CELL COUNT (BEAKER) (test gklp=030) 2.25 M/ L 3.93-5.22 HEMOGLOBIN (BEAKER) (test plap=839) 7.2 GM/DL 11.2-15.7 HEMATOCRIT (BEAKER) (test wtrz=424) 21.8 % 34.1-44.9 MEAN CORPUSCULAR VOLUME (BEAKER) (test cdxy=388) 96.9 fL 79.4-94.8 MEAN CORPUSCULAR HEMOGLOBIN (BEAKER) (test 32.0 pg 25.6-32.2 bfwo=846) MEAN CORPUSCULAR HEMOGLOBIN CONC (BEAKER) (test 33.0 GM/DL 32.2-35.5 mdjw=958) RED CELL DISTRIBUTION WIDTH (BEAKER) (test 21.2 % 11.7-14.4 czsu=636) PLATELET COUNT (BEAKER) (test ltdj=794) 273 K/CU MM 150-450 MEAN PLATELET VOLUME (BEAKER) (test abdv=112) 11.2 fL 9.4-12.3 NUCLEATED RED BLOOD CELLS (BEAKER) (test 2 /100 WBC 0-0 sclo=108) (CELLAVISION MANUAL DIFF)[id number] 10:00:00 Test Item Value Reference Range Comments NEUTROPHILS - REL (CELLAVISION)(BEAKER) (test 49 % gvla=7914) LYMPHOCYTES - REL (CELLAVISION)(BEAKER) (test 33 % ckgd=2658) MONOCYTES - REL (CELLAVISION)(BEAKER) (test 11 % vfpf=6307) EOSINOPHILS - REL (CELLAVISION)(BEAKER) (test 6 % nyje=7543) ATYPICAL LYMPHOCYTES - REL (CELLAVISION)(BEAKER) 1 % 0-0 (test lovj=1755) NEUTROPHILS - ABS (CELLAVISION)(BEAKER) (test 7.15 K/ul 1.56-6.13 vidx=5631) LYMPHOCYTES - ABS (CELLAVISION)(BEAKER) (test 4.82 K/ul 1.18-3.74 uanr=0794) MONOCYTES - ABS (CELLAVISION)(BEAKER) (test 1.61 K/uL 0.24-0.36 rdnx=2511) EOSINOPHILS - ABS (CELLAVISION)(BEAKER) (test 0.88 K/uL 0.04-0.36 eqyv=0174) ATYPICAL LYMPHOCYTES - ABS (CELLAVISION)(BEAKER) 0.15 K/uL 0.00-0.00 (test rcma=0345) TOTAL COUNTED (BEAKER) (test yjez=8495) 100 MANUAL NRBC PER 100 CELLS (BEAKER) (test 4 /100 WBC 0-0 dckz=9713) WBC MORPHOLOGY (BEAKER) (test yxcl=988) Normal PLT MORPHOLOGY (BEAKER) (test zdrw=338) Normal POLYCHROMATOPHILLIC RBCS(BEAKER) (test nxpu=365) 2+ moderate ANISOCYTOSIS (BEAKER) (test atvp=232) 2+ moderate TARGET CELLS (BEAKER) (test wuqb=290) 2+ moderate SICKLE CELLS (BEAKER) (test djgh=359) 1+ few ARTIFACT (CELLAVISION)(BEAKER) (test sshu=0931) Present PLATELET CONCENTRATION (CELLAVISION)(BEAKER) Adequate (test lyez=0373) Received comment: User comments: Slide comments:HEPATIC FUNCTION [id number] 05:37:00 Test Item Value Reference Range Comments TOTAL PROTEIN (BEAKER) (test kgch=798) 7.9 gm/dL 6.0-8.3 ALBUMIN (BEAKER) (test wgix=6062) 3.2 g/dL 3.5-5.0 BILIRUBIN TOTAL (BEAKER) (test imot=975) 2.5 mg/dL 0.2-1.2 BILIRUBIN DIRECT (BEAKER) (test heql=751) 1.2 mg/dL 0.1-0.5 ALKALINE PHOSPHATASE (BEAKER) (test nias=209) 183 U/L 40-150 AST (SGOT) (BEAKER) (test rjdi=210) 129 U/L 5-34 ALT (SGPT) (BEAKER) (test xveb=783) 72 U/L 6-55 COMPREHENSIVE METABOLIC [id number] 05:37:00 Test Item Value Reference Range Comments TOTAL PROTEIN (BEAKER) 7.9 gm/dL 6.0-8.3 (test cqzf=710) ALBUMIN (BEAKER) (test 3.2 g/dL 3.5-5.0 awvp=3613) ALKALINE PHOSPHATASE 183 U/L 40-150 (BEAKER) (test jtbq=637) BILIRUBIN TOTAL (BEAKER) 2.5 mg/dL 0.2-1.2 (test iuvg=392) SODIUM (BEAKER) (test 141 meq/L 136-145 njdv=808) POTASSIUM (BEAKER) (test 3.8 meq/L 3.5-5.1 aool=346) CHLORIDE (BEAKER) (test 104 meq/L 98-107 fjts=694) CO2 (BEAKER) (test 28 meq/L 22-29 kvvm=504) BLOOD UREA NITROGEN 12 mg/dL 7-21 (BEAKER) (test hfmm=339) CREATININE (BEAKER) (test 0.69 mg/dL 0.57-1.25 bkni=797) GLUCOSE RANDOM (BEAKER) 97 mg/dL 70-105 (test lbyl=368) CALCIUM (BEAKER) (test 8.4 mg/dL 8.4-10.2 lxfl=376) AST (SGOT) (BEAKER) (test 129 U/L 5-34 iqfu=065) ALT (SGPT) (BEAKER) (test 72 U/L 6-55 swoi=783) EGFR (BEAKER) (test 115 mL/min/1.73 sq ESTIMATED GFR IS NOT mfoy=5990) m ACCURATE CREATININE CLEARANCE IN PREDICTING GLOMERULAR FILTRATION RATE. ESTIMATED GFR IS NOT APPLICABLE FOR DIALYSIS PATIENTS. CBC W/PLT COUNT & AUTO [id number] 11:21:00 Test Item Value Reference Range Comments WHITE BLOOD CELL COUNT (BEAKER) 15.6 K/ L 3.5-10.5 (test ybmx=213) RED BLOOD CELL COUNT (BEAKER) 2.42 M/ L 3.93-5.22 (test gjsc=253) HEMOGLOBIN (BEAKER) (test 7.7 GM/DL 11.2-15.7 ltlf=969) HEMATOCRIT (BEAKER) (test 23.7 % 34.1-44.9 jdci=807) MEAN CORPUSCULAR VOLUME 97.9 fL 79.4-94.8 PATIENT HAD TWO UNITS (BEAKER) (test zudo=551) LRBC'S BG#[id number] MEAN CORPUSCULAR HEMOGLOBIN 31.8 pg 25.6-32.2 (BEAKER) (test fjar=106) MEAN CORPUSCULAR HEMOGLOBIN 32.5 GM/DL 32.2-35.5 CONC (BEAKER) (test endb=954) RED CELL DISTRIBUTION WIDTH 21.2 % 11.7-14.4 (BEAKER) (test lrjp=814) PLATELET COUNT (BEAKER) (test 263 K/CU MM 150-450 cpsr=308) MEAN PLATELET VOLUME (BEAKER) 11.7 fL 9.4-12.3 (test wbph=636) NUCLEATED RED BLOOD CELLS 3 /100 WBC 0-0 (BEAKER) (test euup=636) (CELLAVISION MANUAL DIFF)2018-09-29 11:21:00 Test Item Value Reference Range Comments NEUTROPHILS - REL (CELLAVISION)(BEAKER) (test 42 % gecx=0025) LYMPHOCYTES - REL (CELLAVISION)(BEAKER) (test 29 % tsvg=4188) MONOCYTES - REL (CELLAVISION)(BEAKER) (test 11 % udej=8671) EOSINOPHILS - REL (CELLAVISION)(BEAKER) (test 15 % iihb=4482) BANDS - REL (CELLAVISION)(BEAKER) (test 1 % 0-10 iels=3788) ATYPICAL LYMPHOCYTES - REL (CELLAVISION)(BEAKER) 1 % 0-0 (test bgcc=2832) NEUTROPHILS - ABS (CELLAVISION)(BEAKER) (test 6.55 K/ul 1.56-6.13 nimu=0872) LYMPHOCYTES - ABS (CELLAVISION)(BEAKER) (test 4.52 K/ul 1.18-3.74 wscx=6168) MONOCYTES - ABS (CELLAVISION)(BEAKER) (test 1.72 K/uL 0.24-0.36 zawe=6194) EOSINOPHILS - ABS (CELLAVISION)(BEAKER) (test 2.34 K/uL 0.04-0.36 nxve=6855) BANDS - ABS (CELLAVISION)(BEAKER) (test 0.16 K/uL 0.00-0.80 llhy=1342) ATYPICAL LYMPHOCYTES - ABS (CELLAVISION)(BEAKER) 0.16 K/uL 0.00-0.00 (test ysqk=8211) TOTAL COUNTED (BEAKER) (test ynbb=8014) 100 MANUAL NRBC PER 100 CELLS (BEAKER) (test 3 /100 WBC 0-0 vxbr=8465) SMUDGE CELLS (BEAKER) (test zygc=3284) Present GIANT PLATELETS (BEAKER) (test xtzk=804) Present POLYCHROMATOPHILLIC RBCS(BEAKER) (test huxm=214) 3+ many ANISOCYTOSIS (BEAKER) (test hyav=172) 2+ moderate MACROCYTES (BEAKER) (test pycy=800) 2+ moderate SCHISTOCYTES (BEAKER) (test odwg=753) 1+ few SICKLE CELLS (BEAKER) (test gpwi=929) 1+ few MATTHIEU CELLS (BEAKER) (test zjbl=704) 1+ few PLATELET CONCENTRATION (CELLAVISION)(BEAKER) Adequate (test nqbu=1169) Received comment: User comments: Slide comments:BASIC METABOLIC [id number] 06:23:00 Test Item Value Reference Range Comments SODIUM (BEAKER) (test 135 meq/L 136-145 sqee=090) POTASSIUM (BEAKER) (test 3.9 meq/L 3.5-5.1 ssmc=460) CHLORIDE (BEAKER) (test 103 meq/L 98-107 wztg=929) CO2 (BEAKER) (test 23 meq/L 22-29 vjib=961) BLOOD UREA NITROGEN 9 mg/dL 7-21 (BEAKER) (test chvj=858) CREATININE (BEAKER) (test 0.72 mg/dL 0.57-1.25 zkco=723) GLUCOSE RANDOM (BEAKER) 93 mg/dL 70-105 (test zkjf=669) CALCIUM (BEAKER) (test 8.2 mg/dL 8.4-10.2 pnvg=898) EGFR (BEAKER) (test 109 mL/min/1.73 sq m ESTIMATED GFR IS NOT jcyx=6607) ACCURATE CREATININE CLEARANCE IN PREDICTING GLOMERULAR FILTRATION RATE. ESTIMATED GFR IS NOT APPLICABLE FOR DIALYSIS PATIENTS. Specimen slightly ictericHEPATIC FUNCTION [id number] 06:23:00 Test Item Value Reference Range Comments TOTAL PROTEIN (BEAKER) (test fact=594) 8.5 gm/dL 6.0-8.3 ALBUMIN (BEAKER) (test wawo=4946) 3.5 g/dL 3.5-5.0 BILIRUBIN TOTAL (BEAKER) (test lnya=735) 2.5 mg/dL 0.2-1.2 BILIRUBIN DIRECT (BEAKER) (test ggxd=928) 1.2 mg/dL 0.1-0.5 ALKALINE PHOSPHATASE (BEAKER) (test mfiy=002) 155 U/L 40-150 AST (SGOT) (BEAKER) (test sdaw=272) 123 U/L 5-34 ALT (SGPT) (BEAKER) (test vasp=141) 69 U/L 6-55 Specimen slightly ictericBASIC METABOLIC [id number] 08:14:00 Test Item Value Reference Range Comments SODIUM (BEAKER) (test 138 meq/L 136-145 cvpv=981) POTASSIUM (BEAKER) (test 3.8 meq/L 3.5-5.1 ppvh=886) CHLORIDE (BEAKER) (test 108 meq/L 98-107 cksi=754) CO2 (BEAKER) (test 21 meq/L 22-29 xogs=186) BLOOD UREA NITROGEN 12 mg/dL 7-21 (BEAKER) (test tnhp=430) CREATININE (BEAKER) (test 0.79 mg/dL 0.57-1.25 rnms=573) GLUCOSE RANDOM (BEAKER) 114 mg/dL 70-105 (test nbod=475) CALCIUM (BEAKER) (test 8.4 mg/dL 8.4-10.2 swrj=616) EGFR (BEAKER) (test 98 mL/min/1.73 sq m ESTIMATED GFR IS NOT tkwy=9791) ACCURATE CREATININE CLEARANCE IN PREDICTING GLOMERULAR FILTRATION RATE. ESTIMATED GFR IS NOT APPLICABLE FOR DIALYSIS PATIENTS. Specimen slightly ictericHEPATIC FUNCTION [id number] 08:14:00 Test Item Value Reference Range Comments TOTAL PROTEIN (BEAKER) (test ojhk=363) 8.1 gm/dL 6.0-8.3 ALBUMIN (BEAKER) (test crhr=8768) 3.2 g/dL 3.5-5.0 BILIRUBIN TOTAL (BEAKER) (test zmqq=687) 2.5 mg/dL 0.2-1.2 BILIRUBIN DIRECT (BEAKER) (test hxii=282) 1.1 mg/dL 0.1-0.5 ALKALINE PHOSPHATASE (BEAKER) (test fdvc=145) 152 U/L 40-150 AST (SGOT) (BEAKER) (test ncvp=751) 118 U/L 5-34 ALT (SGPT) (BEAKER) (test miws=218) 65 U/L 6-55 Specimen slightly ictericSpecimen slightly lipemic(CELLAVISION MANUAL DIFF)09-28 02:39:00 Test Item Value Reference Range Comments NEUTROPHILS - REL (CELLAVISION)(BEAKER) (test 52 % ryku=3411) LYMPHOCYTES - REL (CELLAVISION)(BEAKER) (test 26 % tthv=8034) MONOCYTES - REL (CELLAVISION)(BEAKER) (test 8 % ydxy=9473) EOSINOPHILS - REL (CELLAVISION)(BEAKER) (test 12 % aizz=2087) BASOPHILS - REL (CELLAVISION)(BEAKER) (test 2 % hsyx=7415) NEUTROPHILS - ABS (CELLAVISION)(BEAKER) (test 8.37 K/ul 1.56-6.13 cqui=9605) LYMPHOCYTES - ABS (CELLAVISION)(BEAKER) (test 4.19 K/ul 1.18-3.74 ynok=3430) MONOCYTES - ABS (CELLAVISION)(BEAKER) (test 1.29 K/uL 0.24-0.36 mtuy=6946) EOSINOPHILS - ABS (CELLAVISION)(BEAKER) (test 1.93 K/uL 0.04-0.36 modu=0331) BASOPHILS - ABS (CELLAVISION)(BEAKER) (test 0.32 K/uL 0.01-0.08 jrrx=8376) TOTAL COUNTED (BEAKER) (test ahqc=5780) 100 MANUAL NRBC PER 100 CELLS (BEAKER) (test 11 /100 WBC 0-0 fmqw=0699) SMUDGE CELLS (BEAKER) (test mxub=0861) Present GIANT PLATELETS (BEAKER) (test dmsz=228) Present POLYCHROMATOPHILLIC RBCS(BEAKER) (test xdbo=098) 3+ many ANISOCYTOSIS (BEAKER) (test smin=069) 3+ many MACROCYTES (BEAKER) (test fydo=656) 3+ many POIKILOCYTES (BEAKER) (test ssvy=359) 2+ moderate TARGET CELLS (BEAKER) (test iivo=003) 2+ moderate SCHISTOCYTES (BEAKER) (test qcim=136) 1+ few SICKLE CELLS (BEAKER) (test ocai=978) 1+ few ELLIPTOCYTES (BEAKER) (test dmqe=317) 1+ few STOMATOCYTES (BEAKER) (test owzp=672) 2+ moderate MATTHEWS-JOLLY BODIES (BEAKER) (test bcqp=124) 1+ few PLATELET CONCENTRATION (CELLAVISION)(BEAKER) Adequate (test nxcv=6837) Received comment: User comments: Slide comments:CBC W/PLT COUNT & AUTO [id number] 02:38:00 Test Item Value Reference Range Comments WHITE BLOOD CELL COUNT (BEAKER) (test uexv=810) 16.1 K/ L 3.5-10.5 RED BLOOD CELL COUNT (BEAKER) (test ulvp=930) 1.44 M/ L 3.93-5.22 HEMOGLOBIN (BEAKER) (test qrzd=954) 5.0 GM/DL 11.2-15.7 HEMATOCRIT (BEAKER) (test zriq=856) 15.7 % 34.1-44.9 MEAN CORPUSCULAR VOLUME (BEAKER) (test qafk=396) 109.0 fL 79.4-94.8 MEAN CORPUSCULAR HEMOGLOBIN (BEAKER) (test 34.7 pg 25.6-32.2 rrvj=871) MEAN CORPUSCULAR HEMOGLOBIN CONC (BEAKER) (test 31.8 GM/DL 32.2-35.5 hqyh=059) RED CELL DISTRIBUTION WIDTH (BEAKER) (test 23.2 % 11.7-14.4 alhj=574) PLATELET COUNT (BEAKER) (test zeag=136) 220 K/CU MM 150-450 MEAN PLATELET VOLUME (BEAKER) (test zkkb=301) 11.2 fL 9.4-12.3 NUCLEATED RED BLOOD CELLS (BEAKER) (test 9 /100 WBC 0-0 iycm=477) CBC W/PLT COUNT & AUTO [id number] 12:02:00 Test Item Value Reference Range Comments WHITE BLOOD CELL COUNT (BEAKER) (test ykto=777) 14.3 K/ L 3.5-10.5 RED BLOOD CELL COUNT (BEAKER) (test exfz=984) 2.54 M/ L 3.93-5.22 HEMOGLOBIN (BEAKER) (test jbyn=793) 7.3 GM/DL 11.2-15.7 HEMATOCRIT (BEAKER) (test meen=549) 23.4 % 34.1-44.9 MEAN CORPUSCULAR VOLUME (BEAKER) (test gfod=436) 92.1 fL 79.4-94.8 MEAN CORPUSCULAR HEMOGLOBIN (BEAKER) (test 28.7 pg 25.6-32.2 peds=975) MEAN CORPUSCULAR HEMOGLOBIN CONC (BEAKER) (test 31.2 GM/DL 32.2-35.5 gigc=546) RED CELL DISTRIBUTION WIDTH (BEAKER) (test 21.4 % 11.7-14.4 zoiq=153) PLATELET COUNT (BEAKER) (test omvp=237) 239 K/CU MM 150-450 MEAN PLATELET VOLUME (BEAKER) (test vonh=284) 11.0 fL 9.4-12.3 NUCLEATED RED BLOOD CELLS (BEAKER) (test 4 /100 WBC 0-0 fnif=243) (CELLAVISION MANUAL DIFF)2018-02-08 12:02:00 Test Item Value Reference Range Comments NEUTROPHILS - REL (CELLAVISION)(BEAKER) (test 66 % pagf=6353) LYMPHOCYTES - REL (CELLAVISION)(BEAKER) (test 22 % wjwi=1669) MONOCYTES - REL (CELLAVISION)(BEAKER) (test 8 % bpsu=6881) EOSINOPHILS - REL (CELLAVISION)(BEAKER) (test 3 % dedo=2781) NEUTROPHILS - ABS (CELLAVISION)(BEAKER) (test 9.44 K/ul 1.56-6.13 zmqq=3717) LYMPHOCYTES - ABS (CELLAVISION)(BEAKER) (test 3.15 K/ul 1.18-3.74 quki=5374) MONOCYTES - ABS (CELLAVISION)(BEAKER) (test 1.14 K/uL 0.24-0.36 fhgw=0688) EOSINOPHILS - ABS (CELLAVISION)(BEAKER) (test 0.43 K/uL 0.04-0.36 oote=6750) TOTAL COUNTED (BEAKER) (test wgtf=9151) 100 MANUAL NRBC PER 100 CELLS (BEAKER) (test 5 /100 WBC 0-0 hptz=2211) WBC MORPHOLOGY (BEAKER) (test cmrt=649) Normal PLT MORPHOLOGY (BEAKER) (test ddvu=103) Normal ANISOCYTOSIS (BEAKER) (test nzah=073) 2+ moderate MACROCYTES (BEAKER) (test zzxg=823) 1+ few TARGET CELLS (BEAKER) (test bgkp=032) 1+ few SICKLE CELLS (BEAKER) (test pdmc=797) 1+ few MATTHEWS-JOLLY BODIES (BEAKER) (test zwoi=457) 1+ few ARTIFACT (CELLAVISION)(BEAKER) (test xxev=9750) Present PLATELET CONCENTRATION (CELLAVISION)(BEAKER) Adequate (test mdhd=3494) Received comment: User comments: Slide comments:BASIC METABOLIC [id number] 06:09:00 Test Item Value Reference Range Comments SODIUM (BEAKER) (test 138 meq/L 136-145 gciv=961) POTASSIUM (BEAKER) (test 5.9 meq/L 3.5-5.1 ncyl=276) CHLORIDE (BEAKER) (test 102 meq/L 98-107 rpqc=749) CO2 (BEAKER) (test 30 meq/L 22-29 pihm=039) BLOOD UREA NITROGEN 15 mg/dL 7-21 (BEAKER) (test zxql=737) CREATININE (BEAKER) (test 0.68 mg/dL 0.57-1.25 tfta=161) GLUCOSE RANDOM (BEAKER) 87 mg/dL 70-105 (test xhuj=325) CALCIUM (BEAKER) (test 9.6 mg/dL 8.4-10.2 xzge=830) EGFR (BEAKER) (test 117 mL/min/1.73 sq m ESTIMATED GFR IS NOT rpco=9640) ACCURATE CREATININE CLEARANCE IN PREDICTING GLOMERULAR FILTRATION RATE. ESTIMATED GFR IS NOT APPLICABLE FOR DIALYSIS PATIENTS. (CELLAVISION MANUAL DIFF)2018-02-07 13:34:00 Test Item Value Reference Range Comments NEUTROPHILS - REL (CELLAVISION)(BEAKER) (test 68 % lahx=7029) LYMPHOCYTES - REL (CELLAVISION)(BEAKER) (test 24 % jtqk=4577) MONOCYTES - REL (CELLAVISION)(BEAKER) (test 7 % vwjh=5496) EOSINOPHILS - REL (CELLAVISION)(BEAKER) (test 1 % mzir=4380) NEUTROPHILS - ABS (CELLAVISION)(BEAKER) (test 9.66 K/ul 1.56-6.13 doob=3244) LYMPHOCYTES - ABS (CELLAVISION)(BEAKER) (test 3.41 K/ul 1.18-3.74 hkkq=2241) MONOCYTES - ABS (CELLAVISION)(BEAKER) (test 0.99 K/uL 0.24-0.36 jvqi=2593) EOSINOPHILS - ABS (CELLAVISION)(BEAKER) (test 0.14 K/uL 0.04-0.36 ujhz=0613) TOTAL COUNTED (BEAKER) (test uxul=7243) 100 MANUAL NRBC PER 100 CELLS (BEAKER) (test 15 /100 WBC 0-0 wngr=0762) WBC MORPHOLOGY (BEAKER) (test yhjc=145) Normal LARGE PLT(BEAKER) (test hpnj=5467) Present POLYCHROMATOPHILLIC RBCS(BEAKER) (test okou=288) 2+ moderate HYPOCHROMIA (BEAKER) (test pfad=768) 1+ few TARGET CELLS (BEAKER) (test lepf=046) 2+ moderate SICKLE CELLS (BEAKER) (test bliv=548) 1+ few MATTHEWS-JOLLY BODIES (BEAKER) (test smnh=495) 1+ few ARTIFACT (CELLAVISION)(BEAKER) (test cyki=2634) Present PLATELET CONCENTRATION (CELLAVISION)(BEAKER) Adequate (test xwpb=0899) Received comment: User comments: Slide comments:CBC W/PLT COUNT & AUTO [id number] 13:33:00 Test Item Value Reference Range Comments WHITE BLOOD CELL COUNT (BEAKER) (test xuyo=411) 14.2 K/ L 3.5-10.5 RED BLOOD CELL COUNT (BEAKER) (test svvf=388) 2.68 M/ L 3.93-5.22 HEMOGLOBIN (BEAKER) (test aphi=406) 7.7 GM/DL 11.2-15.7 HEMATOCRIT (BEAKER) (test qfed=837) 24.5 % 34.1-44.9 MEAN CORPUSCULAR VOLUME (BEAKER) (test mure=952) 91.4 fL 79.4-94.8 MEAN CORPUSCULAR HEMOGLOBIN (BEAKER) (test 28.7 pg 25.6-32.2 alug=519) MEAN CORPUSCULAR HEMOGLOBIN CONC (BEAKER) (test 31.4 GM/DL 32.2-35.5 laui=084) RED CELL DISTRIBUTION WIDTH (BEAKER) (test 21.2 % 11.7-14.4 iuzh=037) PLATELET COUNT (BEAKER) (test knsp=245) 257 K/CU MM 150-450 MEAN PLATELET VOLUME (BEAKER) (test qzki=166) 11.4 fL 9.4-12.3 NUCLEATED RED BLOOD CELLS (BEAKER) (test 6 /100 WBC 0-0 qtyp=941) BASIC METABOLIC [id number] 07:19:00 Test Item Value Reference Range Comments SODIUM (BEAKER) (test 138 meq/L 136-145 yslo=766) POTASSIUM (BEAKER) (test 5.3 meq/L 3.5-5.1 nkrf=907) CHLORIDE (BEAKER) (test 98 meq/L 98-107 yxhc=057) CO2 (BEAKER) (test 34 meq/L 22-29 ojns=978) BLOOD UREA NITROGEN 16 mg/dL 7-21 (BEAKER) (test qfia=067) CREATININE (BEAKER) (test 0.66 mg/dL 0.57-1.25 figq=403) GLUCOSE RANDOM (BEAKER) 90 mg/dL 70-105 (test cipv=422) CALCIUM (BEAKER) (test 9.8 mg/dL 8.4-10.2 nzra=237) EGFR (BEAKER) (test 121 mL/min/1.73 sq m ESTIMATED GFR IS NOT bzkw=0890) ACCURATE CREATININE CLEARANCE IN PREDICTING GLOMERULAR FILTRATION RATE. ESTIMATED GFR IS NOT APPLICABLE FOR DIALYSIS PATIENTS. CBC W/PLT COUNT & AUTO [id number] 14:36:00 Test Item Value Reference Range Comments WHITE BLOOD CELL COUNT (BEAKER) (test pgtn=952) 12.9 K/ L 3.5-10.5 RED BLOOD CELL COUNT (BEAKER) (test xytv=656) 2.54 M/ L 3.93-5.22 HEMOGLOBIN (BEAKER) (test llxn=222) 7.4 GM/DL 11.2-15.7 HEMATOCRIT (BEAKER) (test szur=554) 22.9 % 34.1-44.9 MEAN CORPUSCULAR VOLUME (BEAKER) (test cfxb=407) 90.2 fL 79.4-94.8 MEAN CORPUSCULAR HEMOGLOBIN (BEAKER) (test 29.1 pg 25.6-32.2 laas=380) MEAN CORPUSCULAR HEMOGLOBIN CONC (BEAKER) (test 32.3 GM/DL 32.2-35.5 cofk=826) RED CELL DISTRIBUTION WIDTH (BEAKER) (test 21.2 % 11.7-14.4 rosq=651) PLATELET COUNT (BEAKER) (test adnp=110) 251 K/CU MM 150-450 MEAN PLATELET VOLUME (BEAKER) (test rpfs=607) 10.8 fL 9.4-12.3 NUCLEATED RED BLOOD CELLS (BEAKER) (test 7 /100 WBC 0-0 dpce=328) (MANUAL DIFFERENTIAL)2018-02-06 14:36:00 Test Item Value Reference Range Comments NEUTROPHILS - REL (DIFF) (BEAKER) (test 64 % tlzu=7014) LYMPHOCYTES - REL (DIFF) (BEAKER) (test 22 % shby=8023) MONOCYTES - REL (DIFF) (BEAKER) (test vctl=6929) 8 % EOSINOPHILS - REL (DIFF) (BEAKER) (test 6 % bfzz=2927) BASOPHILS - REL (DIFF) (BEAKER) (test bkeb=0952) 0 % NEUTROPHILS - ABS (DIFF) (BEAKER) (test 8.26 K/ L 1.80-8.00 ipcy=8749) LYMPHOCYTES - ABS (DIFF) (BEAKER) (test 2.84 K/ L 1.48-4.50 kasy=9885) MONOCYTES - ABS (DIFF) (BEAKER) (test fhdb=1900) 1.03 K/ L 0.00-1.30 EOSINOPHILS - ABS (DIFF) (BEAKER) (test 0.77 K/ L 0.00-0.50 ftoe=9848) BASOPHILS - ABS (DIFF) (BEAKER) (test heel=3302) 0.00 K/ L 0.00-0.20 TOTAL COUNTED (BEAKER) (test erha=2522) 100 MANUAL NRBC PER 100 CELLS (BEAKER) (test 8 /100 WBC 0-0 ngcc=4211) WBC MORPHOLOGY (BEAKER) (test urai=625) Normal PLT MORPHOLOGY (BEAKER) (test pxcz=642) Normal ANISOCYTOSIS (BEAKER) (test xpuy=767) 2+ moderate SICKLE CELLS (BEAKER) (test zspw=941) 2+ moderate BASIC METABOLIC [id number] 06:59:00 Test Item Value Reference Range Comments SODIUM (BEAKER) (test 139 meq/L 136-145 sbkk=206) POTASSIUM (BEAKER) (test 4.9 meq/L 3.5-5.1 yxbe=886) CHLORIDE (BEAKER) (test 100 meq/L 98-107 zpoi=955) CO2 (BEAKER) (test 34 meq/L 22-29 jqzn=655) BLOOD UREA NITROGEN 18 mg/dL 7-21 (BEAKER) (test hacf=518) CREATININE (BEAKER) (test 0.70 mg/dL 0.57-1.25 teew=681) GLUCOSE RANDOM (BEAKER) 102 mg/dL 70-105 (test zwbs=228) CALCIUM (BEAKER) (test 9.8 mg/dL 8.4-10.2 qzjg=315) EGFR (BEAKER) (test 114 mL/min/1.73 sq m ESTIMATED GFR IS NOT etyv=3254) ACCURATE CREATININE CLEARANCE IN PREDICTING GLOMERULAR FILTRATION RATE. ESTIMATED GFR IS NOT APPLICABLE FOR DIALYSIS PATIENTS. CBC W/PLT COUNT & AUTO [id number] 12:27:00 Test Item Value Reference Range Comments WHITE BLOOD CELL COUNT (BEAKER) (test xwws=373) 14.2 K/ L 3.5-10.5 RED BLOOD CELL COUNT (BEAKER) (test alei=926) 2.55 M/ L 3.93-5.22 HEMOGLOBIN (BEAKER) (test wxgj=545) 7.2 GM/DL 11.2-15.7 HEMATOCRIT (BEAKER) (test fcpq=229) 22.9 % 34.1-44.9 MEAN CORPUSCULAR VOLUME (BEAKER) (test jskq=444) 89.8 fL 79.4-94.8 MEAN CORPUSCULAR HEMOGLOBIN (BEAKER) (test 28.2 pg 25.6-32.2 zcll=025) MEAN CORPUSCULAR HEMOGLOBIN CONC (BEAKER) (test 31.4 GM/DL 32.2-35.5 newr=584) RED CELL DISTRIBUTION WIDTH (BEAKER) (test 20.7 % 11.7-14.4 eyjk=207) PLATELET COUNT (BEAKER) (test uitq=634) 261 K/CU MM 150-450 MEAN PLATELET VOLUME (BEAKER) (test zjxg=582) 10.7 fL 9.4-12.3 NUCLEATED RED BLOOD CELLS (BEAKER) (test 5 /100 WBC 0-0 tdxn=453) (CELLAVISION MANUAL DIFF)2018-02-05 12:27:00 Test Item Value Reference Range Comments NEUTROPHILS - REL (CELLAVISION)(BEAKER) (test 67 % bizb=5427) LYMPHOCYTES - REL (CELLAVISION)(BEAKER) (test 17 % hrgr=3897) MONOCYTES - REL (CELLAVISION)(BEAKER) (test 6 % adod=6218) EOSINOPHILS - REL (CELLAVISION)(BEAKER) (test 4 % umdy=0762) PROMYELOCYTES - REL (CELLAVSION)(BEAKER) (test 5 % 0-0 rsup=0545) ATYPICAL LYMPHOCYTES - REL (CELLAVISION)(BEAKER) 1 % 0-0 (test flqt=6950) NEUTROPHILS - ABS (CELLAVISION)(BEAKER) (test 9.51 K/ul 1.56-6.13 gyvs=7121) LYMPHOCYTES - ABS (CELLAVISION)(BEAKER) (test 2.41 K/ul 1.18-3.74 cjgx=6650) MONOCYTES - ABS (CELLAVISION)(BEAKER) (test 0.85 K/uL 0.24-0.36 xpzb=3665) EOSINOPHILS - ABS (CELLAVISION)(BEAKER) (test 0.57 K/uL 0.04-0.36 yvyl=3946) PROMYELOCYTES - ABS (CELLAVISION)(BEAKER) (test 0.71 K/uL 0.00-0.00 gcyv=7913) ATYPICAL LYMPHOCYTES - ABS (CELLAVISION)(BEAKER) 0.14 K/uL 0.00-0.00 (test hzih=9168) TOTAL COUNTED (BEAKER) (test czfn=6650) 100 MANUAL NRBC PER 100 CELLS (BEAKER) (test 9 /100 WBC 0-0 hedc=1601) WBC MORPHOLOGY (BEAKER) (test cxgc=540) Normal LARGE PLT(BEAKER) (test aibj=2774) Present POLYCHROMATOPHILLIC RBCS(BEAKER) (test kftf=709) 2+ moderate HYPOCHROMIA (BEAKER) (test vuah=790) 1+ few TARGET CELLS (BEAKER) (test qqmu=633) 2+ moderate SICKLE CELLS (BEAKER) (test pgum=274) 2+ moderate ARTIFACT (CELLAVISION)(BEAKER) (test kxdl=8234) Present PLATELET CONCENTRATION (CELLAVISION)(BEAKER) Adequate (test cbpj=3847) Received comment: User comments: Slide comments:BASIC METABOLIC [id number] 07:44:00 Test Item Value Reference Range Comments SODIUM (BEAKER) (test 139 meq/L 136-145 joio=752) POTASSIUM (BEAKER) (test 4.7 meq/L 3.5-5.1 onyu=784) CHLORIDE (BEAKER) (test 100 meq/L 98-107 avga=864) CO2 (BEAKER) (test 31 meq/L 22-29 jrie=673) BLOOD UREA NITROGEN 14 mg/dL 7-21 (BEAKER) (test qloh=068) CREATININE (BEAKER) (test 0.69 mg/dL 0.57-1.25 njqv=989) GLUCOSE RANDOM (BEAKER) 92 mg/dL 70-105 (test bgrh=350) CALCIUM (BEAKER) (test 9.8 mg/dL 8.4-10.2 obfq=621) EGFR (BEAKER) (test 115 mL/min/1.73 sq m ESTIMATED GFR IS NOT ilio=0608) ACCURATE CREATININE CLEARANCE IN PREDICTING GLOMERULAR FILTRATION RATE. ESTIMATED GFR IS NOT APPLICABLE FOR DIALYSIS PATIENTS. CBC W/PLT COUNT & AUTO [id number] 13:29:00 Test Item Value Reference Range Comments WHITE BLOOD CELL COUNT (BEAKER) (test jnom=392) 17.1 K/ L 3.5-10.5 RED BLOOD CELL COUNT (BEAKER) (test dped=817) 2.68 M/ L 3.93-5.22 HEMOGLOBIN (BEAKER) (test crhh=434) 7.6 GM/DL 11.2-15.7 HEMATOCRIT (BEAKER) (test lfui=320) 23.3 % 34.1-44.9 MEAN CORPUSCULAR VOLUME (BEAKER) (test omfp=755) 86.9 fL 79.4-94.8 MEAN CORPUSCULAR HEMOGLOBIN (BEAKER) (test 28.4 pg 25.6-32.2 nrpd=366) MEAN CORPUSCULAR HEMOGLOBIN CONC (BEAKER) (test 32.6 GM/DL 32.2-35.5 rmgj=011) RED CELL DISTRIBUTION WIDTH (BEAKER) (test 20.0 % 11.7-14.4 uzkq=127) PLATELET COUNT (BEAKER) (test izyt=983) 252 K/CU MM 150-450 MEAN PLATELET VOLUME (BEAKER) (test jdje=922) 10.9 fL 9.4-12.3 NUCLEATED RED BLOOD CELLS (BEAKER) (test 4 /100 WBC 0-0 mrhw=864) (CELLAVISION MANUAL DIFF)2018-02-04 13:29:00 Test Item Value Reference Range Comments NEUTROPHILS - REL (CELLAVISION)(BEAKER) (test 61 % ucsy=0361) LYMPHOCYTES - REL (CELLAVISION)(BEAKER) (test 29 % qbwl=6673) MONOCYTES - REL (CELLAVISION)(BEAKER) (test 7 % jagl=2425) EOSINOPHILS - REL (CELLAVISION)(BEAKER) (test 1 % lgdr=2321) BANDS - REL (CELLAVISION)(BEAKER) (test 2 % 0-10 cfnr=9777) NEUTROPHILS - ABS (CELLAVISION)(BEAKER) (test 10.43 K/ul 1.56-6.13 cwhc=9732) LYMPHOCYTES - ABS (CELLAVISION)(BEAKER) (test 4.96 K/ul 1.18-3.74 bhhk=4484) MONOCYTES - ABS (CELLAVISION)(BEAKER) (test 1.20 K/uL 0.24-0.36 geik=6741) EOSINOPHILS - ABS (CELLAVISION)(BEAKER) (test 0.17 K/uL 0.04-0.36 opdl=2278) BANDS - ABS (CELLAVISION)(BEAKER) (test 0.34 K/uL 0.00-0.80 uccz=3467) TOTAL COUNTED (BEAKER) (test dvru=1336) 100 MANUAL NRBC PER 100 CELLS (BEAKER) (test 3 /100 WBC 0-0 xzuc=1759) SMUDGE CELLS (BEAKER) (test zjyn=1339) Present GIANT PLATELETS (BEAKER) (test vlrc=544) Present POLYCHROMATOPHILLIC RBCS(BEAKER) (test zvug=468) 3+ many ANISOCYTOSIS (BEAKER) (test kpfg=660) 2+ moderate MICROCYTES (BEAKER) (test tmyw=268) 1+ few POIKILOCYTES (BEAKER) (test taoa=238) 2+ moderate TARGET CELLS (BEAKER) (test zqgi=459) 2+ moderate SICKLE CELLS (BEAKER) (test msft=154) 2+ moderate ARTIFACT (CELLAVISION)(BEAKER) (test nwrz=9764) Present HELMET CELLS (CELLAVISION)(BEAKER) (test 1+ few vmbd=5186) PLATELET CONCENTRATION (CELLAVISION)(BEAKER) Adequate (test wvym=8598) Received comment: User comments: Slide comments:BASIC METABOLIC [id number] 05:38:00 Test Item Value Reference Range Comments SODIUM (BEAKER) (test 140 meq/L 136-145 vzvf=438) POTASSIUM (BEAKER) (test 4.6 meq/L 3.5-5.1 eutp=662) CHLORIDE (BEAKER) (test 104 meq/L 98-107 cbml=770) CO2 (BEAKER) (test 28 meq/L 22-29 kfls=778) BLOOD UREA NITROGEN 18 mg/dL 7-21 (BEAKER) (test uycp=500) CREATININE (BEAKER) (test 0.66 mg/dL 0.57-1.25 bgvs=098) GLUCOSE RANDOM (BEAKER) 100 mg/dL 70-105 (test atwo=026) CALCIUM (BEAKER) (test 9.5 mg/dL 8.4-10.2 samm=795) EGFR (BEAKER) (test 121 mL/min/1.73 sq m ESTIMATED GFR IS NOT eucw=2755) ACCURATE CREATININE CLEARANCE IN PREDICTING GLOMERULAR FILTRATION RATE. ESTIMATED GFR IS NOT APPLICABLE FOR DIALYSIS PATIENTS. CBC W/PLT COUNT & AUTO [id number] 14:02:00 Test Item Value Reference Range Comments WHITE BLOOD CELL COUNT (BEAKER) (test tazw=302) 20.8 K/ L 3.5-10.5 RED BLOOD CELL COUNT (BEAKER) (test bhqh=667) 1.97 M/ L 3.93-5.22 HEMOGLOBIN (BEAKER) (test wrko=396) 5.9 GM/DL 11.2-15.7 HEMATOCRIT (BEAKER) (test zigi=765) 17.6 % 34.1-44.9 MEAN CORPUSCULAR VOLUME (BEAKER) (test iezy=722) 89.3 fL 79.4-94.8 MEAN CORPUSCULAR HEMOGLOBIN (BEAKER) (test 29.9 pg 25.6-32.2 qvoq=799) MEAN CORPUSCULAR HEMOGLOBIN CONC (BEAKER) (test 33.5 GM/DL 32.2-35.5 ztos=666) RED CELL DISTRIBUTION WIDTH (BEAKER) (test 21.8 % 11.7-14.4 bdjc=215) PLATELET COUNT (BEAKER) (test ngda=058) 290 K/CU MM 150-450 MEAN PLATELET VOLUME (BEAKER) (test kaqz=782) 10.7 fL 9.4-12.3 NUCLEATED RED BLOOD CELLS (BEAKER) (test 5 /100 WBC 0-0 iyli=896) NEUTROPHILS RELATIVE PERCENT (BEAKER) (test 66 % ngbc=533) LYMPHOCYTES RELATIVE PERCENT (BEAKER) (test 23 % qhcy=132) MONOCYTES RELATIVE PERCENT (BEAKER) (test 10 % vxio=398) EOSINOPHILS RELATIVE PERCENT (BEAKER) (test 1 % xhap=913) BASOPHILS RELATIVE PERCENT (BEAKER) (test 0 % wxcf=926) NEUTROPHILS ABSOLUTE COUNT (BEAKER) (test 13.73 K/ L 1.56-6.13 jsqx=751) LYMPHOCYTES ABSOLUTE COUNT (BEAKER) (test 4.72 K/ L 1.18-3.74 nbar=684) MONOCYTES ABSOLUTE COUNT (BEAKER) (test 2.06 K/ L 0.24-0.36 kqii=492) EOSINOPHILS ABSOLUTE COUNT (BEAKER) (test 0.20 K/ L 0.04-0.36 jpqr=277) BASOPHILS ABSOLUTE COUNT (BEAKER) (test 0.03 K/ L 0.01-0.08 hzzx=881) IMMATURE GRANULOCYTES-RELATIVE PERCENT (BEAKER) 1 % 0-1 (test cdtg=5581) (CELLAVISION MANUAL DIFF)2018-02-03 14:02:00 Test Item Value Reference Range Comments TOTAL COUNTED (BEAKER) (test hitr=0479) WBC MORPHOLOGY (BEAKER) (test ghqq=180) Normal PLT MORPHOLOGY (BEAKER) (test xuqv=496) Normal POLYCHROMATOPHILLIC RBCS(BEAKER) (test qbcu=109) 2+ moderate ANISOCYTOSIS (BEAKER) (test djmb=048) 2+ moderate TARGET CELLS (BEAKER) (test hptx=155) 2+ moderate SICKLE CELLS (BEAKER) (test xrsw=307) 2+ moderate BASIC METABOLIC [id number] 07:22:00 Test Item Value Reference Range Comments SODIUM (BEAKER) (test 140 meq/L 136-145 pgzd=508) POTASSIUM (BEAKER) (test 4.9 meq/L 3.5-5.1 qmzd=179) CHLORIDE (BEAKER) (test 105 meq/L 98-107 yhmy=003) CO2 (BEAKER) (test 29 meq/L 22-29 lqqd=974) BLOOD UREA NITROGEN 20 mg/dL 7-21 (BEAKER) (test xszs=298) CREATININE (BEAKER) (test 0.72 mg/dL 0.57-1.25 jtzs=207) GLUCOSE RANDOM (BEAKER) 100 mg/dL 70-105 (test mcrv=086) CALCIUM (BEAKER) (test 9.4 mg/dL 8.4-10.2 rrbg=659) EGFR (BEAKER) (test 110 mL/min/1.73 sq m ESTIMATED GFR IS NOT rmnp=7976) ACCURATE CREATININE CLEARANCE IN PREDICTING GLOMERULAR FILTRATION RATE. ESTIMATED GFR IS NOT APPLICABLE FOR DIALYSIS PATIENTS. Specimen slightly ictericCBC W/PLT COUNT & AUTO [id number] 06:46 :00 Test Item Value Reference Range Comments WHITE BLOOD CELL COUNT (BEAKER) (test xwdg=305) 17.0 K/ L 3.5-10.5 RED BLOOD CELL COUNT (BEAKER) (test zqcn=020) 2.18 M/ L 3.93-5.22 HEMOGLOBIN (BEAKER) (test yggi=304) 6.4 GM/DL 11.2-15.7 HEMATOCRIT (BEAKER) (test mnjo=487) 20.3 % 34.1-44.9 MEAN CORPUSCULAR VOLUME (BEAKER) (test ghid=720) 93.1 fL 79.4-94.8 MEAN CORPUSCULAR HEMOGLOBIN (BEAKER) (test 29.4 pg 25.6-32.2 wcrg=450) MEAN CORPUSCULAR HEMOGLOBIN CONC (BEAKER) (test 31.5 GM/DL 32.2-35.5 vstz=504) RED CELL DISTRIBUTION WIDTH (BEAKER) (test 24.0 % 11.7-14.4 ciut=633) PLATELET COUNT (BEAKER) (test ujar=155) 274 K/CU MM 150-450 MEAN PLATELET VOLUME (BEAKER) (test myem=348) 10.9 fL 9.4-12.3 NUCLEATED RED BLOOD CELLS (BEAKER) (test 13 /100 WBC 0-0 qzzz=711) (CELLAVISION MANUAL DIFF)2018-02-02 06:46:00 Test Item Value Reference Range Comments NEUTROPHILS - REL (CELLAVISION)(BEAKER) (test 72 % mqkh=1782) LYMPHOCYTES - REL (CELLAVISION)(BEAKER) (test 20 % smrn=5607) MONOCYTES - REL (CELLAVISION)(BEAKER) (test 6 % uwod=4769) EOSINOPHILS - REL (CELLAVISION)(BEAKER) (test 1 % dypx=9293) BANDS - REL (CELLAVISION)(BEAKER) (test 1 % 0-10 qvmf=0525) NEUTROPHILS - ABS (CELLAVISION)(BEAKER) (test 12.24 K/ul 1.56-6.13 prne=5497) LYMPHOCYTES - ABS (CELLAVISION)(BEAKER) (test 3.40 K/ul 1.18-3.74 tbch=9096) MONOCYTES - ABS (CELLAVISION)(BEAKER) (test 1.02 K/uL 0.24-0.36 lzjh=2871) EOSINOPHILS - ABS (CELLAVISION)(BEAKER) (test 0.17 K/uL 0.04-0.36 untg=7874) BANDS - ABS (CELLAVISION)(BEAKER) (test 0.17 K/uL 0.00-0.80 qgpi=4554) TOTAL COUNTED (BEAKER) (test giln=1624) 100 MANUAL NRBC PER 100 CELLS (BEAKER) (test 30 /100 WBC 0-0 slel=0282) WBC MORPHOLOGY (BEAKER) (test bpux=444) Normal PLT MORPHOLOGY (BEAKER) (test vydb=351) Normal POLYCHROMATOPHILLIC RBCS(BEAKER) (test zqfv=709) 3+ many ANISOCYTOSIS (BEAKER) (test wseu=105) 2+ moderate MACROCYTES (BEAKER) (test zcki=581) 2+ moderate TARGET CELLS (BEAKER) (test biwv=428) 1+ few SICKLE CELLS (BEAKER) (test wlmc=966) 1+ few ARTIFACT (CELLAVISION)(BEAKER) (test bvnp=3735) Present PLATELET CONCENTRATION (CELLAVISION)(BEAKER) Adequate (test xgqf=1017) Received comment: User comments: Slide comments:BASIC METABOLIC [id number] 06:15:00 Test Item Value Reference Range Comments SODIUM (BEAKER) (test 139 meq/L 136-145 okdc=881) POTASSIUM (BEAKER) (test 4.7 meq/L 3.5-5.1 nnyc=673) CHLORIDE (BEAKER) (test 105 meq/L 98-107 kjhb=727) CO2 (BEAKER) (test 26 meq/L 22-29 tczy=086) BLOOD UREA NITROGEN 10 mg/dL 7-21 (BEAKER) (test aclw=856) CREATININE (BEAKER) (test 0.67 mg/dL 0.57-1.25 bhdc=392) GLUCOSE RANDOM (BEAKER) 91 mg/dL 70-105 (test zzqs=135) CALCIUM (BEAKER) (test 9.3 mg/dL 8.4-10.2 ukto=950) EGFR (BEAKER) (test 119 mL/min/1.73 sq m ESTIMATED GFR IS NOT mkbk=1488) ACCURATE CREATININE CLEARANCE IN PREDICTING GLOMERULAR FILTRATION RATE. ESTIMATED GFR IS NOT APPLICABLE FOR DIALYSIS PATIENTS. URINALYSIS W/ [id number] 20:17:00 Test Item Value Reference Range Comments COLOR (BEAKER) (test qtaw=480) Yellow CLARITY (BEAKER) (test npsz=345) Hazy SPECIFIC GRAVITY UA (BEAKER) (test hoae=208) 1.009 1.001-1.035 PH UA (BEAKER) (test cnoj=881) 5.5 5.0-8.0 PROTEIN UA (BEAKER) (test zhml=066) 20 mg/dL Negative GLUCOSE UA (BEAKER) (test qmyp=208) Negative Negative KETONES UA (BEAKER) (test ffua=139) Negative Negative BILIRUBIN UA (BEAKER) (test vwdz=990) Negative Negative BLOOD UA (BEAKER) (test jbll=296) Small Negative NITRITE UA (BEAKER) (test twll=223) Negative Negative LEUKOCYTE ESTERASE UA (BEAKER) (test qtca=808) Small Negative UROBILINOGEN UA (BEAKER) (test nrzp=531) 0.2 mg/dL 0.2-1.0 RBC UA (BEAKER) (test zvtn=355) 1 /HPF WBC UA (BEAKER) (test feta=501) 4 /HPF BACTERIA (BEAKER) (test uhlf=842) Few MUCUS (BEAKER) (test ufhi=2368) Occasional SQUAMOUS EPITHELIAL (BEAKER) (test vjjq=279) 8 /HPF SOURCE(BEAKER) (test trlg=7517) Urine, Voided CBC W/PLT COUNT & AUTO [id number] 11:18:00 Test Item Value Reference Range Comments WHITE BLOOD CELL COUNT (BEAKER) (test qaoh=677) 16.9 K/ L 3.5-10.5 RED BLOOD CELL COUNT (BEAKER) (test opje=703) 2.15 M/ L 3.93-5.22 HEMOGLOBIN (BEAKER) (test zoua=279) 6.5 GM/DL 11.2-15.7 HEMATOCRIT (BEAKER) (test ohsd=689) 20.6 % 34.1-44.9 MEAN CORPUSCULAR VOLUME (BEAKER) (test ptfr=006) 95.8 fL 79.4-94.8 MEAN CORPUSCULAR HEMOGLOBIN (BEAKER) (test 30.2 pg 25.6-32.2 mlji=384) MEAN CORPUSCULAR HEMOGLOBIN CONC (BEAKER) (test 31.6 GM/DL 32.2-35.5 vuvo=960) RED CELL DISTRIBUTION WIDTH (BEAKER) (test 25.6 % 11.7-14.4 hjfn=450) PLATELET COUNT (BEAKER) (test rlxs=326) 280 K/CU MM 150-450 MEAN PLATELET VOLUME (BEAKER) (test pzjt=806) 10.7 fL 9.4-12.3 NUCLEATED RED BLOOD CELLS (BEAKER) (test 27 /100 WBC 0-0 shrv=912) (CELLAVISION MANUAL DIFF)2018-02-01 11:18:00 Test Item Value Reference Range Comments NEUTROPHILS - REL (CELLAVISION)(BEAKER) (test 61 % bscr=5962) LYMPHOCYTES - REL (CELLAVISION)(BEAKER) (test 27 % rghy=3229) MONOCYTES - REL (CELLAVISION)(BEAKER) (test 8 % mutw=7433) EOSINOPHILS - REL (CELLAVISION)(BEAKER) (test 4 % dlie=1829) NEUTROPHILS - ABS (CELLAVISION)(BEAKER) (test 10.31 K/ul 1.56-6.13 tljv=5939) LYMPHOCYTES - ABS (CELLAVISION)(BEAKER) (test 4.56 K/ul 1.18-3.74 vafu=8709) MONOCYTES - ABS (CELLAVISION)(BEAKER) (test 1.35 K/uL 0.24-0.36 kktd=3929) EOSINOPHILS - ABS (CELLAVISION)(BEAKER) (test 0.68 K/uL 0.04-0.36 cmbu=5219) TOTAL COUNTED (BEAKER) (test zpym=3115) 100 MANUAL NRBC PER 100 CELLS (BEAKER) (test 28 /100 WBC 0-0 kgge=4235) WBC MORPHOLOGY (BEAKER) (test gdai=589) Normal PLT MORPHOLOGY (BEAKER) (test ntww=116) Normal POLYCHROMATOPHILLIC RBCS(BEAKER) (test mztc=024) 2+ moderate ANISOCYTOSIS (BEAKER) (test swwp=856) 2+ moderate TARGET CELLS (BEAKER) (test teae=982) 2+ moderate SICKLE CELLS (BEAKER) (test nqez=459) 1+ few ARTIFACT (CELLAVISION)(BEAKER) (test gboj=5901) Present PLATELET CONCENTRATION (CELLAVISION)(BEAKER) Adequate (test drum=1625) Received comment: User comments: Slide comments:BASIC METABOLIC [id number] 06:15:00 Test Item Value Reference Range Comments SODIUM (BEAKER) (test 141 meq/L 136-145 hfgm=033) POTASSIUM (BEAKER) (test 4.2 meq/L 3.5-5.1 cgdj=041) CHLORIDE (BEAKER) (test 108 meq/L 98-107 oyva=716) CO2 (BEAKER) (test 25 meq/L 22-29 muuo=390) BLOOD UREA NITROGEN 11 mg/dL 7-21 (BEAKER) (test njpm=253) CREATININE (BEAKER) (test 0.73 mg/dL 0.57-1.25 jjkg=074) GLUCOSE RANDOM (BEAKER) 93 mg/dL 70-105 (test qqoa=892) CALCIUM (BEAKER) (test 9.2 mg/dL 8.4-10.2 drlb=333) EGFR (BEAKER) (test 108 mL/min/1.73 sq m ESTIMATED GFR IS NOT lrsz=9190) ACCURATE CREATININE CLEARANCE IN PREDICTING GLOMERULAR FILTRATION RATE. ESTIMATED GFR IS NOT APPLICABLE FOR DIALYSIS PATIENTS. CBC W/PLT COUNT & AUTO [id number] 15:02:00 Test Item Value Reference Range Comments WHITE BLOOD CELL COUNT (BEAKER) (test ahqv=943) 18.0 K/ L 3.5-10.5 RED BLOOD CELL COUNT (BEAKER) (test qpwc=142) 2.31 M/ L 3.93-5.22 HEMOGLOBIN (BEAKER) (test xvkq=301) 7.0 GM/DL 11.2-15.7 HEMATOCRIT (BEAKER) (test xggo=914) 22.4 % 34.1-44.9 MEAN CORPUSCULAR VOLUME (BEAKER) (test fhuv=404) 97.0 fL 79.4-94.8 MEAN CORPUSCULAR HEMOGLOBIN (BEAKER) (test 30.3 pg 25.6-32.2 thfj=065) MEAN CORPUSCULAR HEMOGLOBIN CONC (BEAKER) (test 31.3 GM/DL 32.2-35.5 xwtb=007) RED CELL DISTRIBUTION WIDTH (BEAKER) (test 27.9 % 11.7-14.4 lrva=346) PLATELET COUNT (BEAKER) (test ibmu=285) 337 K/CU MM 150-450 MEAN PLATELET VOLUME (BEAKER) (test baet=962) 10.2 fL 9.4-12.3 NUCLEATED RED BLOOD CELLS (BEAKER) (test 63 /100 WBC 0-0 yyxz=772) NEUTROPHILS RELATIVE PERCENT (BEAKER) (test 45 % xehn=798) LYMPHOCYTES RELATIVE PERCENT (BEAKER) (test 35 % zblp=688) MONOCYTES RELATIVE PERCENT (BEAKER) (test 16 % mzjl=048) EOSINOPHILS RELATIVE PERCENT (BEAKER) (test 2 % unud=132) BASOPHILS RELATIVE PERCENT (BEAKER) (test 0 % tcso=195) NEUTROPHILS ABSOLUTE COUNT (BEAKER) (test 8.10 K/ L 1.56-6.13 ixux=063) LYMPHOCYTES ABSOLUTE COUNT (BEAKER) (test 6.24 K/ L 1.18-3.74 zcdd=859) MONOCYTES ABSOLUTE COUNT (BEAKER) (test 2.96 K/ L 0.24-0.36 wydi=613) EOSINOPHILS ABSOLUTE COUNT (BEAKER) (test 0.38 K/ L 0.04-0.36 ulvt=409) BASOPHILS ABSOLUTE COUNT (BEAKER) (test 0.06 K/ L 0.01-0.08 zibb=398) IMMATURE GRANULOCYTES-RELATIVE PERCENT (BEAKER) 2 % 0-1 (test vbqg=9015) (CELLAVISION MANUAL DIFF)2018-01-30 15:02:00 Test Item Value Reference Range Comments TOTAL COUNTED (BEAKER) (test gzfu=5802) WBC MORPHOLOGY (BEAKER) (test pilb=329) Normal PLT MORPHOLOGY (BEAKER) (test edgb=460) Normal POLYCHROMATOPHILLIC RBCS(BEAKER) (test sqyb=407) 2+ moderate ANISOCYTOSIS (BEAKER) (test gqny=943) 2+ moderate TARGET CELLS (BEAKER) (test ucag=129) 2+ moderate SICKLE CELLS (BEAKER) (test ygkv=684) 1+ few BASIC METABOLIC [id number] 09:27:00 Test Item Value Reference Range Comments SODIUM (BEAKER) (test 141 meq/L 136-145 gocw=204) POTASSIUM (BEAKER) (test 4.0 meq/L 3.5-5.1 adds=683) CHLORIDE (BEAKER) (test 108 meq/L 98-107 xgvs=406) CO2 (BEAKER) (test 24 meq/L 22-29 trfb=032) BLOOD UREA NITROGEN 12 mg/dL 7-21 (BEAKER) (test yqab=464) CREATININE (BEAKER) (test 0.80 mg/dL 0.57-1.25 xwvq=997) GLUCOSE RANDOM (BEAKER) 95 mg/dL 70-105 (test aazt=769) CALCIUM (BEAKER) (test 9.5 mg/dL 8.4-10.2 taly=096) EGFR (BEAKER) (test 97 mL/min/1.73 sq m ESTIMATED GFR IS NOT iaot=1621) ACCURATE CREATININE CLEARANCE IN PREDICTING GLOMERULAR FILTRATION RATE. ESTIMATED GFR IS NOT APPLICABLE FOR DIALYSIS PATIENTS. [id number] 17:59:00 Test Item Value Reference Range Comments FERRITIN (BEAKER) (test imnr=743) 75030 ng/mL 5-275 CBC W/PLT COUNT & AUTO [id number] 17:20:00 Test Item Value Reference Range Comments WHITE BLOOD CELL COUNT (BEAKER) (test vhab=105) 19.9 K/ L 3.5-10.5 RED BLOOD CELL COUNT (BEAKER) (test jtfe=983) 1.53 M/ L 3.93-5.22 HEMOGLOBIN (BEAKER) (test toxl=190) 5.0 GM/DL 11.2-15.7 HEMATOCRIT (BEAKER) (test yvsv=752) 16.0 % 34.1-44.9 MEAN CORPUSCULAR VOLUME (BEAKER) (test mwsu=009) 104.6 fL 79.4-94.8 MEAN CORPUSCULAR HEMOGLOBIN (BEAKER) (test 32.7 pg 25.6-32.2 fyad=769) MEAN CORPUSCULAR HEMOGLOBIN CONC (BEAKER) (test 31.3 GM/DL 32.2-35.5 kuyk=387) RED CELL DISTRIBUTION WIDTH (BEAKER) (test 33.7 % 11.7-14.4 eqmd=313) PLATELET COUNT (BEAKER) (test bihg=571) 364 K/CU MM 150-450 MEAN PLATELET VOLUME (BEAKER) (test euak=613) 10.4 fL 9.4-12.3 NUCLEATED RED BLOOD CELLS (BEAKER) (test 62 /100 WBC 0-0 vaht=392) RETICULOCYTE [id number] 17:20:00 Test Item Value Reference Range Comments RETICULOCYTE COUNT PCT (BEAKER) (test nluz=585) > % 0.5-1.7 (CELLAVISION MANUAL DIFF)2018-01-29 17:20:00 Test Item Value Reference Range Comments TOTAL COUNTED (BEAKER) (test cdgu=4313) RBC MORPHOLOGY (BEAKER) (test wwmv=276) Normal WBC MORPHOLOGY (BEAKER) (test yzkz=804) Normal PLT MORPHOLOGY (BEAKER) (test vxqb=402) Normal LACTATE DEHYDROGENASE (LDH)2018-01-29 17:04:00 Test Item Value Reference Range Comments LACTATE DEHYDROGENASE (BEAKER) (test jyuy=867) 989 U/L 125-220 BASIC METABOLIC [id number] 17:04:00 Test Item Value Reference Range Comments SODIUM (BEAKER) (test 138 meq/L 136-145 xvci=234) POTASSIUM (BEAKER) (test 4.2 meq/L 3.5-5.1 oubb=168) CHLORIDE (BEAKER) (test 109 meq/L 98-107 aywu=190) CO2 (BEAKER) (test 22 meq/L 22-29 ywyf=950) BLOOD UREA NITROGEN 11 mg/dL 7-21 (BEAKER) (test caad=654) CREATININE (BEAKER) (test 0.76 mg/dL 0.57-1.25 syrf=787) GLUCOSE RANDOM (BEAKER) 104 mg/dL 70-105 (test wrkq=520) CALCIUM (BEAKER) (test 9.5 mg/dL 8.4-10.2 nher=540) EGFR (BEAKER) (test 103 mL/min/1.73 sq m ESTIMATED GFR IS NOT cmwe=0096) ACCURATE CREATININE CLEARANCE IN PREDICTING GLOMERULAR FILTRATION RATE. ESTIMATED GFR IS NOT APPLICABLE FOR DIALYSIS PATIENTS. ANTI-MITOCHONDRIAL AB, REFLEX TO [id number] 11:03:00 Test Item Value Reference Range Comments SCAN RESULT (test lrcs=[id number]) CALCIUM, [id number] 07:05:00 Test Item Value Reference Range Comments CALCIUM IONIZED (BEAKER) (test kjfv=175) 1.10 mmol/L 1.12-1.27 PH, BLOOD (BEAKER) (test yswq=0554) 7.30 [id number] 06:22:00 Test Item Value Reference Range Comments PHOSPHORUS (BEAKER) (test itsi=862) 4.7 mg/dL 2.3-4.7 [id number] 06:22:00 Test Item Value Reference Range Comments MAGNESIUM (BEAKER) (test bnrb=915) 1.4 mg/dL 1.6-2.6 BASIC METABOLIC [id number] 06:22:00 Test Item Value Reference Range Comments SODIUM (BEAKER) (test 135 meq/L 136-145 wplg=777) POTASSIUM (BEAKER) (test 4.5 meq/L 3.5-5.1 piuj=043) CHLORIDE (BEAKER) (test 100 meq/L 98-107 pkff=099) CO2 (BEAKER) (test 29 meq/L 22-29 razs=987) BLOOD UREA NITROGEN 19 mg/dL 7-21 (BEAKER) (test jbrt=759) CREATININE (BEAKER) (test 0.76 mg/dL 0.57-1.25 whpf=210) GLUCOSE RANDOM (BEAKER) 104 mg/dL 70-105 (test elix=738) CALCIUM (BEAKER) (test 9.3 mg/dL 8.4-10.2 cnaz=492) EGFR (BEAKER) (test 103 mL/min/1.73 sq m ESTIMATED GFR IS NOT shok=4272) ACCURATE CREATININE CLEARANCE IN PREDICTING GLOMERULAR FILTRATION RATE. ESTIMATED GFR IS NOT APPLICABLE FOR DIALYSIS PATIENTS. CREATINE KINASE (CK)2017-11-24 08:12:00 Test Item Value Reference Range Comments CREATINE KINASE TOTAL (BEAKER) (test xxnt=031) 8 U/L 29-200 URIC [id number] 08:01:00 Test Item Value Reference Range Comments URIC ACID (BEAKER) (test ttce=786) 4.8 mg/dL 2.6-7.2 [id number] 08:01:00 Test Item Value Reference Range Comments MAGNESIUM (BEAKER) (test qbub=811) 1.5 mg/dL 1.6-2.6 [id number] 08:01:00 Test Item Value Reference Range Comments PHOSPHORUS (BEAKER) (test frgz=809) 5.3 mg/dL 2.3-4.7 BASIC METABOLIC [id number] 08:01:00 Test Item Value Reference Range Comments SODIUM (BEAKER) (test 138 meq/L 136-145 mxnr=921) POTASSIUM (BEAKER) (test 4.9 meq/L 3.5-5.1 xrfq=609) CHLORIDE (BEAKER) (test 100 meq/L 98-107 ytju=948) CO2 (BEAKER) (test 28 meq/L 22-29 rdzi=548) BLOOD UREA NITROGEN 22 mg/dL 7-21 (BEAKER) (test tzof=389) CREATININE (BEAKER) (test 0.80 mg/dL 0.57-1.25 xhpu=466) GLUCOSE RANDOM (BEAKER) 102 mg/dL 70-105 (test qxqn=093) CALCIUM (BEAKER) (test 9.3 mg/dL 8.4-10.2 nrma=573) EGFR (BEAKER) (test 97 mL/min/1.73 sq m ESTIMATED GFR IS NOT gcvw=2006) ACCURATE CREATININE CLEARANCE IN PREDICTING GLOMERULAR FILTRATION RATE. ESTIMATED GFR IS NOT APPLICABLE FOR DIALYSIS PATIENTS. LACTATE DEHYDROGENASE (LDH)2017-11-24 08:01:00 Test Item Value Reference Range Comments LACTATE DEHYDROGENASE (BEAKER) (test sziy=220) 489 U/L 125-220 [id number] 18:07:00 Test Item Value Reference Range Comments POTASSIUM (BEAKER) (test avxe=170) 5.5 meq/L 3.5-5.1 Call if K > 5.4 to renal 713 790 1032CALCIUM, [id number] 06:51:00 Test Item Value Reference Range Comments CALCIUM IONIZED (BEAKER) (test muge=879) 1.08 mmol/L 1.12-1.27 PH, BLOOD (BEAKER) (test qera=3010) 7.35 CBC W/PLT COUNT & AUTO [id number] 06:25:00 Test Item Value Reference Range Comments WHITE BLOOD CELL COUNT (BEAKER) (test msrz=190) 18.3 K/ L 3.5-10.5 RED BLOOD CELL COUNT (BEAKER) (test fztk=556) 2.30 M/ L 3.93-5.22 HEMOGLOBIN (BEAKER) (test mzsq=646) 6.5 GM/DL 11.2-15.7 HEMATOCRIT (BEAKER) (test cewh=099) 21.1 % 34.1-44.9 MEAN CORPUSCULAR VOLUME (BEAKER) (test mnye=969) 91.7 fL 79.4-94.8 MEAN CORPUSCULAR HEMOGLOBIN (BEAKER) (test 28.3 pg 25.6-32.2 sbpd=763) MEAN CORPUSCULAR HEMOGLOBIN CONC (BEAKER) (test 30.8 GM/DL 32.2-35.5 hbgs=372) RED CELL DISTRIBUTION WIDTH (BEAKER) (test 21.2 % 11.7-14.4 doqv=321) PLATELET COUNT (BEAKER) (test zxxk=720) 414 K/CU MM 150-450 MEAN PLATELET VOLUME (BEAKER) (test grqa=211) 11.5 fL 9.4-12.3 NUCLEATED RED BLOOD CELLS (BEAKER) (test 0 /100 WBC 0-0 mkxq=726) NEUTROPHILS RELATIVE PERCENT (BEAKER) (test 53 % ozmk=543) LYMPHOCYTES RELATIVE PERCENT (BEAKER) (test 25 % xogo=269) MONOCYTES RELATIVE PERCENT (BEAKER) (test 19 % ajzu=735) EOSINOPHILS RELATIVE PERCENT (BEAKER) (test 2 % iciz=698) BASOPHILS RELATIVE PERCENT (BEAKER) (test 0 % ombl=146) NEUTROPHILS ABSOLUTE COUNT (BEAKER) (test 9.74 K/ L 1.56-6.13 hfpq=713) LYMPHOCYTES ABSOLUTE COUNT (BEAKER) (test 4.57 K/ L 1.18-3.74 apbj=789) MONOCYTES ABSOLUTE COUNT (BEAKER) (test 3.51 K/ L 0.24-0.36 nigs=349) EOSINOPHILS ABSOLUTE COUNT (BEAKER) (test 0.29 K/ L 0.04-0.36 xiej=163) BASOPHILS ABSOLUTE COUNT (BEAKER) (test 0.07 K/ L 0.01-0.08 jkgy=993) IMMATURE GRANULOCYTES-RELATIVE PERCENT (BEAKER) 1 % 0-1 (test khyg=3827) [id number] 05:35:00 Test Item Value Reference Range Comments PHOSPHORUS (BEAKER) (test yyke=542) 4.4 mg/dL 2.3-4.7 [id number] 05:35:00 Test Item Value Reference Range Comments MAGNESIUM (BEAKER) (test kknq=095) 1.3 mg/dL 1.6-2.6 BASIC METABOLIC [id number] 05:35:00 Test Item Value Reference Range Comments SODIUM (BEAKER) (test 136 meq/L 136-145 iojb=642) POTASSIUM (BEAKER) (test 5.4 meq/L 3.5-5.1 zkls=951) CHLORIDE (BEAKER) (test 97 meq/L 98-107 omdo=731) CO2 (BEAKER) (test 31 meq/L 22-29 bavt=200) BLOOD UREA NITROGEN 20 mg/dL 7-21 (BEAKER) (test nctt=192) CREATININE (BEAKER) (test 0.75 mg/dL 0.57-1.25 kuuk=458) GLUCOSE RANDOM (BEAKER) 81 mg/dL 70-105 (test thps=835) CALCIUM (BEAKER) (test 9.5 mg/dL 8.4-10.2 mdfr=959) EGFR (BEAKER) (test 105 mL/min/1.73 sq m ESTIMATED GFR IS NOT mnjp=7517) ACCURATE CREATININE CLEARANCE IN PREDICTING GLOMERULAR FILTRATION RATE. ESTIMATED GFR IS NOT APPLICABLE FOR DIALYSIS PATIENTS. [id number] 16:19:00 Test Item Value Reference Range Comments POTASSIUM (BEAKER) (test uwsk=540) 5.2 meq/L 3.5-5.1 Repeat after 3 hours kayexalate was given; call result [id number] 12:53:00 Test Item Value Reference Range Comments SODIUM (BEAKER) (test cjxg=873) 137 meq/L 136-145 POTASSIUM (BEAKER) (test prrw=799) 5.4 meq/L 3.5-5.1 CHLORIDE (BEAKER) (test tird=275) 100 meq/L 98-107 CO2 (BEAKER) (test wuju=773) 30 meq/L 22-29 Call results [id number] 11:14:00 Test Item Value Reference Range Comments POTASSIUM (BEAKER) (test qcmv=558) 5.8 meq/L 3.5-5.1 [id number] 06:40:00 Test Item Value Reference Range Comments PHOSPHORUS (BEAKER) (test gtid=282) 5.4 mg/dL 2.3-4.7 [id number] 06:40:00 Test Item Value Reference Range Comments MAGNESIUM (BEAKER) (test jbvi=360) 1.6 mg/dL 1.6-2.6 CALCIUM, [id number] 06:27:00 Test Item Value Reference Range Comments CALCIUM IONIZED (BEAKER) (test pyhz=839) 0.99 mmol/L 1.12-1.27 PH, BLOOD (BEAKER) (test xnot=9793) 7.43 CBC W/PLT COUNT & AUTO [id number] 05:53:00 Test Item Value Reference Range Comments WHITE BLOOD CELL COUNT (BEAKER) (test feip=610) 16.2 K/ L 3.5-10.5 RED BLOOD CELL COUNT (BEAKER) (test lmpv=436) 2.38 M/ L 3.93-5.22 HEMOGLOBIN (BEAKER) (test qqqu=912) 7.0 GM/DL 11.2-15.7 HEMATOCRIT (BEAKER) (test efph=284) 22.2 % 34.1-44.9 MEAN CORPUSCULAR VOLUME (BEAKER) (test amei=523) 93.3 fL 79.4-94.8 MEAN CORPUSCULAR HEMOGLOBIN (BEAKER) (test 29.4 pg 25.6-32.2 sxyk=265) MEAN CORPUSCULAR HEMOGLOBIN CONC (BEAKER) (test 31.5 GM/DL 32.2-35.5 sjuh=778) RED CELL DISTRIBUTION WIDTH (BEAKER) (test 21.3 % 11.7-14.4 lojf=507) PLATELET COUNT (BEAKER) (test zhjb=633) 390 K/CU MM 150-450 MEAN PLATELET VOLUME (BEAKER) (test bqrr=410) 11.8 fL 9.4-12.3 NUCLEATED RED BLOOD CELLS (BEAKER) (test 0 /100 WBC 0-0 vrgh=952) NEUTROPHILS RELATIVE PERCENT (BEAKER) (test 58 % xnsc=275) LYMPHOCYTES RELATIVE PERCENT (BEAKER) (test 23 % lgnt=295) MONOCYTES RELATIVE PERCENT (BEAKER) (test 17 % hibd=395) EOSINOPHILS RELATIVE PERCENT (BEAKER) (test 2 % laoi=229) BASOPHILS RELATIVE PERCENT (BEAKER) (test 0 % esuz=533) NEUTROPHILS ABSOLUTE COUNT (BEAKER) (test 9.31 K/ L 1.56-6.13 clwn=915) LYMPHOCYTES ABSOLUTE COUNT (BEAKER) (test 3.65 K/ L 1.18-3.74 wuuy=653) MONOCYTES ABSOLUTE COUNT (BEAKER) (test 2.70 K/ L 0.24-0.36 nsro=681) EOSINOPHILS ABSOLUTE COUNT (BEAKER) (test 0.36 K/ L 0.04-0.36 tywo=287) BASOPHILS ABSOLUTE COUNT (BEAKER) (test 0.04 K/ L 0.01-0.08 khln=510) IMMATURE GRANULOCYTES-RELATIVE PERCENT (BEAKER) 1 % 0-1 (test psbo=8537) BASIC METABOLIC [id number] 17:35:00 Test Item Value Reference Range Comments SODIUM (BEAKER) (test 133 meq/L 136-145 fiow=791) POTASSIUM (BEAKER) (test 5.4 meq/L 3.5-5.1 zbay=509) CHLORIDE (BEAKER) (test 99 meq/L 98-107 srrr=658) CO2 (BEAKER) (test 26 meq/L 22-29 lhvg=398) BLOOD UREA NITROGEN 23 mg/dL 7-21 (BEAKER) (test hgay=772) CREATININE (BEAKER) (test 0.83 mg/dL 0.57-1.25 ipzx=859) GLUCOSE RANDOM (BEAKER) 94 mg/dL 70-105 (test lgum=236) CALCIUM (BEAKER) (test 9.2 mg/dL 8.4-10.2 qrlj=433) EGFR (BEAKER) (test 93 mL/min/1.73 sq m ESTIMATED GFR IS NOT wdix=4630) ACCURATE CREATININE CLEARANCE IN PREDICTING GLOMERULAR FILTRATION RATE. ESTIMATED GFR IS NOT APPLICABLE FOR DIALYSIS PATIENTS. [id number] 06:33:00 Test Item Value Reference Range Comments PHOSPHORUS (BEAKER) (test vinq=193) 5.3 mg/dL 2.3-4.7 [id number] 06:33:00 Test Item Value Reference Range Comments MAGNESIUM (BEAKER) (test hnxl=654) 1.6 mg/dL 1.6-2.6 BASIC METABOLIC [id number] 06:33:00 Test Item Value Reference Range Comments SODIUM (BEAKER) (test 133 meq/L 136-145 rqrg=231) POTASSIUM (BEAKER) (test 5.2 meq/L 3.5-5.1 bqin=428) CHLORIDE (BEAKER) (test 97 meq/L 98-107 uvxh=400) CO2 (BEAKER) (test 29 meq/L 22-29 xyqv=749) BLOOD UREA NITROGEN 23 mg/dL 7-21 (BEAKER) (test zvwa=119) CREATININE (BEAKER) (test 0.77 mg/dL 0.57-1.25 svni=390) GLUCOSE RANDOM (BEAKER) 92 mg/dL 70-105 (test wplm=838) CALCIUM (BEAKER) (test 9.4 mg/dL 8.4-10.2 xvyt=925) EGFR (BEAKER) (test 102 mL/min/1.73 sq m ESTIMATED GFR IS NOT gmrv=1422) ACCURATE CREATININE CLEARANCE IN PREDICTING GLOMERULAR FILTRATION RATE. ESTIMATED GFR IS NOT APPLICABLE FOR DIALYSIS PATIENTS. CALCIUM, [id number] 06:22:00 Test Item Value Reference Range Comments CALCIUM IONIZED (BEAKER) (test bjyv=002) 1.18 mmol/L 1.12-1.27 PH, BLOOD (BEAKER) (test idzp=0302) 7.32 B-TYPE NATRIURETIC FACTOR (BNP)[id number] 06:19:00 Test Item Value Reference Range Comments B-TYPE NATRIURETIC PEPTIDE (BEAKER) (test 120 pg/mL 0-100 nugp=092) CBC W/PLT COUNT & AUTO [id number] 05:59:00 Test Item Value Reference Range Comments WHITE BLOOD CELL COUNT (BEAKER) (test hnfw=455) 17.4 K/ L 3.5-10.5 RED BLOOD CELL COUNT (BEAKER) (test mavx=597) 2.32 M/ L 3.93-5.22 HEMOGLOBIN (BEAKER) (test xhmh=875) 6.7 GM/DL 11.2-15.7 HEMATOCRIT (BEAKER) (test lyur=770) 21.6 % 34.1-44.9 MEAN CORPUSCULAR VOLUME (BEAKER) (test upgj=881) 93.1 fL 79.4-94.8 MEAN CORPUSCULAR HEMOGLOBIN (BEAKER) (test 28.9 pg 25.6-32.2 vfdl=899) MEAN CORPUSCULAR HEMOGLOBIN CONC (BEAKER) (test 31.0 GM/DL 32.2-35.5 kunk=728) RED CELL DISTRIBUTION WIDTH (BEAKER) (test 20.9 % 11.7-14.4 xyfq=024) PLATELET COUNT (BEAKER) (test eham=224) 367 K/CU MM 150-450 MEAN PLATELET VOLUME (BEAKER) (test yvbk=642) 12.1 fL 9.4-12.3 NUCLEATED RED BLOOD CELLS (BEAKER) (test 0 /100 WBC 0-0 tcdc=084) NEUTROPHILS RELATIVE PERCENT (BEAKER) (test 58 % zyqd=151) LYMPHOCYTES RELATIVE PERCENT (BEAKER) (test 23 % zxon=584) MONOCYTES RELATIVE PERCENT (BEAKER) (test 16 % upez=337) EOSINOPHILS RELATIVE PERCENT (BEAKER) (test 3 % zwsj=540) BASOPHILS RELATIVE PERCENT (BEAKER) (test 1 % epon=672) NEUTROPHILS ABSOLUTE COUNT (BEAKER) (test 10.09 K/ L 1.56-6.13 gnxc=784) LYMPHOCYTES ABSOLUTE COUNT (BEAKER) (test 3.92 K/ L 1.18-3.74 biqz=508) MONOCYTES ABSOLUTE COUNT (BEAKER) (test 2.71 K/ L 0.24-0.36 jgyn=436) EOSINOPHILS ABSOLUTE COUNT (BEAKER) (test 0.46 K/ L 0.04-0.36 bydu=020) BASOPHILS ABSOLUTE COUNT (BEAKER) (test 0.08 K/ L 0.01-0.08 iyoc=249) IMMATURE GRANULOCYTES-RELATIVE PERCENT (BEAKER) 1 % 0-1 (test gznv=4810) BLOOD GAS, [id number] 07:22:00 Test Item Value Reference Range Comments PH VENOUS (BEAKER) (test aiob=296) 7.34 7.32-7.42 PCO2 VENOUS (BEAKER) (test rxcp=161) 63 mmHg 41-51 PO2 VENOUS (BEAKER) (test oeks=675) 133 mmHg 25-40 O2 SATURATION VENOUS (BEAKER) (test bfmu=475) 98.4 % 40.0-70.0 HCO3 VENOUS (BEAKER) (test bljn=381) 33 mmol/L 21-29 BASE EXCESS VENOUS (BEAKER) (test eivy=801) 6.6 mmol/L -2.0-3.0 PATIENT TEMPERATURE (BEAKER) (test gbub=3779) 37.0 C FIO2 (BEAKER) (test ypfq=3757) 21.0 % CALCIUM, [id number] 07:20:00 Test Item Value Reference Range Comments CALCIUM IONIZED (BEAKER) (test plkz=852) 1.10 mmol/L 1.12-1.27 PH, BLOOD (BEAKER) (test wqvv=9637) 7.33 [id number] 07:18:00 Test Item Value Reference Range Comments PHOSPHORUS (BEAKER) (test hfrn=708) 4.8 mg/dL 2.3-4.7 [id number] 07:18:00 Test Item Value Reference Range Comments MAGNESIUM (BEAKER) (test arac=748) 1.6 mg/dL 1.6-2.6 BASIC METABOLIC [id number] 07:18:00 Test Item Value Reference Range Comments SODIUM (BEAKER) (test 137 meq/L 136-145 cybd=537) POTASSIUM (BEAKER) (test 4.8 meq/L 3.5-5.1 clie=604) CHLORIDE (BEAKER) (test 99 meq/L 98-107 mavm=981) CO2 (BEAKER) (test 31 meq/L 22-29 qmml=318) BLOOD UREA NITROGEN 20 mg/dL 7-21 (BEAKER) (test aojp=523) CREATININE (BEAKER) (test 0.83 mg/dL 0.57-1.25 zeoi=035) GLUCOSE RANDOM (BEAKER) 117 mg/dL 70-105 (test xcjc=396) CALCIUM (BEAKER) (test 9.5 mg/dL 8.4-10.2 hzga=044) EGFR (BEAKER) (test 93 mL/min/1.73 sq m ESTIMATED GFR IS NOT gnch=3535) ACCURATE CREATININE CLEARANCE IN PREDICTING GLOMERULAR FILTRATION RATE. ESTIMATED GFR IS NOT APPLICABLE FOR DIALYSIS PATIENTS. CBC W/PLT COUNT & AUTO [id number] 07:14:00 Test Item Value Reference Range Comments WHITE BLOOD CELL COUNT (BEAKER) (test seqh=955) 16.7 K/ L 3.5-10.5 RED BLOOD CELL COUNT (BEAKER) (test vjgh=766) 2.39 M/ L 3.93-5.22 HEMOGLOBIN (BEAKER) (test sjco=147) 6.9 GM/DL 11.2-15.7 HEMATOCRIT (BEAKER) (test uvmu=691) 22.3 % 34.1-44.9 MEAN CORPUSCULAR VOLUME (BEAKER) (test ladj=732) 93.3 fL 79.4-94.8 MEAN CORPUSCULAR HEMOGLOBIN (BEAKER) (test 28.9 pg 25.6-32.2 bxqv=100) MEAN CORPUSCULAR HEMOGLOBIN CONC (BEAKER) (test 30.9 GM/DL 32.2-35.5 ouov=675) RED CELL DISTRIBUTION WIDTH (BEAKER) (test 21.1 % 11.7-14.4 ltkw=012) PLATELET COUNT (BEAKER) (test hcfq=874) 344 K/CU MM 150-450 MEAN PLATELET VOLUME (BEAKER) (test mbdw=246) 11.7 fL 9.4-12.3 NUCLEATED RED BLOOD CELLS (BEAKER) (test 0 /100 WBC 0-0 dcnh=425) NEUTROPHILS RELATIVE PERCENT (BEAKER) (test 60 % jzmt=992) LYMPHOCYTES RELATIVE PERCENT (BEAKER) (test 23 % egfr=434) MONOCYTES RELATIVE PERCENT (BEAKER) (test 14 % lzzr=912) EOSINOPHILS RELATIVE PERCENT (BEAKER) (test 3 % vwqa=274) BASOPHILS RELATIVE PERCENT (BEAKER) (test 0 % hbyg=191) NEUTROPHILS ABSOLUTE COUNT (BEAKER) (test 9.95 K/ L 1.56-6.13 rpwg=672) LYMPHOCYTES ABSOLUTE COUNT (BEAKER) (test 3.92 K/ L 1.18-3.74 dtrs=565) MONOCYTES ABSOLUTE COUNT (BEAKER) (test 2.29 K/ L 0.24-0.36 svge=419) EOSINOPHILS ABSOLUTE COUNT (BEAKER) (test 0.45 K/ L 0.04-0.36 kjng=422) BASOPHILS ABSOLUTE COUNT (BEAKER) (test 0.04 K/ L 0.01-0.08 ftkn=164) IMMATURE GRANULOCYTES-RELATIVE PERCENT (BEAKER) 0 % 0-1 (test yonf=5646) [id number] 11:18:00 Test Item Value Reference Range Comments FERRITIN (BEAKER) (test gewu=465) 05647 ng/mL 5-275 [id number] 07:10:00 Test Item Value Reference Range Comments MAGNESIUM (BEAKER) (test yntq=686) 2.0 mg/dL 1.6-2.6 BASIC METABOLIC [id number] 07:10:00 Test Item Value Reference Range Comments SODIUM (BEAKER) (test 137 meq/L 136-145 qbuj=661) POTASSIUM (BEAKER) (test 4.5 meq/L 3.5-5.1 eflt=283) CHLORIDE (BEAKER) (test 99 meq/L 98-107 wlid=368) CO2 (BEAKER) (test 35 meq/L 22-29 pzcl=369) BLOOD UREA NITROGEN 18 mg/dL 7-21 (BEAKER) (test lzit=562) CREATININE (BEAKER) (test 0.78 mg/dL 0.57-1.25 fyym=783) GLUCOSE RANDOM (BEAKER) 102 mg/dL 70-105 (test dnwr=630) CALCIUM (BEAKER) (test 9.4 mg/dL 8.4-10.2 dyjz=579) EGFR (BEAKER) (test 100 mL/min/1.73 sq m ESTIMATED GFR IS NOT hwuh=3488) ACCURATE CREATININE CLEARANCE IN PREDICTING GLOMERULAR FILTRATION RATE. ESTIMATED GFR IS NOT APPLICABLE FOR DIALYSIS PATIENTS. CBC (HEMOGRAM ONLY)2017-11-19 07:06:00 Test Item Value Reference Range Comments WHITE BLOOD CELL COUNT (BEAKER) (test ktoh=276) 15.3 K/ L 3.5-10.5 RED BLOOD CELL COUNT (BEAKER) (test xobq=191) 2.42 M/ L 3.93-5.22 HEMOGLOBIN (BEAKER) (test yotg=556) 7.1 GM/DL 11.2-15.7 HEMATOCRIT (BEAKER) (test giwl=833) 22.5 % 34.1-44.9 MEAN CORPUSCULAR VOLUME (BEAKER) (test qooz=018) 93.0 fL 79.4-94.8 MEAN CORPUSCULAR HEMOGLOBIN (BEAKER) (test 29.3 pg 25.6-32.2 jwme=772) MEAN CORPUSCULAR HEMOGLOBIN CONC (BEAKER) (test 31.6 GM/DL 32.2-35.5 yriu=120) RED CELL DISTRIBUTION WIDTH (BEAKER) (test 20.9 % 11.7-14.4 tukc=401) PLATELET COUNT (BEAKER) (test grxw=120) 324 K/CU MM 150-450 MEAN PLATELET VOLUME (BEAKER) (test eczt=652) 11.8 fL 9.4-12.3 NUCLEATED RED BLOOD CELLS (BEAKER) (test 1 /100 WBC 0-0 otbn=087) BLOOD [id number] 06:00:00 Test Item Value Reference Range Comments CULTURE (BEAKER) (test pnkk=7401) No growth in 5 days ANTI-NUCLEAR ANTIBODY (AMARILSY)2017-11-17 14:21:00 Test Item Value Reference Range Comments ANTI-NUCLEAR ANTIBODY (AMARILYS) (BEAKER) (test Positive Negative ngfo=086) AMARILYS TITER AND [id number] 14:21:00 Test Item Value Reference Range Comments AMARILYS TITER (BEAKER) (test :160 volg=7537) AMARILYS PATTERN (BEAKER) (test Multiple nuclear dots pattern jrhk=3137) [id number] 07:16:00 Test Item Value Reference Range Comments PHOSPHORUS (BEAKER) (test nmci=067) 4.5 mg/dL 2.3-4.7 [id number] 07:16:00 Test Item Value Reference Range Comments MAGNESIUM (BEAKER) (test uxbu=626) 1.4 mg/dL 1.6-2.6 BASIC METABOLIC [id number] 07:16:00 Test Item Value Reference Range Comments SODIUM (BEAKER) (test 141 meq/L 136-145 vmgq=291) POTASSIUM (BEAKER) (test 4.2 meq/L 3.5-5.1 zrep=623) CHLORIDE (BEAKER) (test 98 meq/L 98-107 rkti=025) CO2 (BEAKER) (test 34 meq/L 22-29 sofn=814) BLOOD UREA NITROGEN 21 mg/dL 7-21 (BEAKER) (test qfer=659) CREATININE (BEAKER) (test 0.85 mg/dL 0.57-1.25 lqio=256) GLUCOSE RANDOM (BEAKER) 98 mg/dL 70-105 (test atai=981) CALCIUM (BEAKER) (test 9.2 mg/dL 8.4-10.2 gqfn=792) EGFR (BEAKER) (test 91 mL/min/1.73 sq m ESTIMATED GFR IS NOT sqho=1619) ACCURATE CREATININE CLEARANCE IN PREDICTING GLOMERULAR FILTRATION RATE. ESTIMATED GFR IS NOT APPLICABLE FOR DIALYSIS PATIENTS. HEPATIC FUNCTION [id number] 07:16:00 Test Item Value Reference Range Comments TOTAL PROTEIN (BEAKER) (test pxuz=265) 8.3 gm/dL 6.0-8.3 ALBUMIN (BEAKER) (test nidn=5846) 3.0 g/dL 3.5-5.0 BILIRUBIN TOTAL (BEAKER) (test kevj=016) 1.3 mg/dL 0.2-1.2 BILIRUBIN DIRECT (BEAKER) (test ujjn=952) 0.7 mg/dL 0.1-0.5 ALKALINE PHOSPHATASE (BEAKER) (test svdg=988) 217 U/L 40-150 AST (SGOT) (BEAKER) (test xgce=011) 106 U/L 5-34 ALT (SGPT) (BEAKER) (test omas=429) 46 U/L 6-55 CALCIUM, [id number] 06:50:00 Test Item Value Reference Range Comments CALCIUM IONIZED (BEAKER) (test msgr=818) 1.11 mmol/L 1.12-1.27 PH, BLOOD (BEAKER) (test btji=7041) 7.34 CBC W/PLT COUNT & AUTO [id number] 06:09:00 Test Item Value Reference Range Comments WHITE BLOOD CELL COUNT (BEAKER) (test tvwk=624) 16.8 K/ L 3.5-10.5 RED BLOOD CELL COUNT (BEAKER) (test cbib=038) 2.53 M/ L 3.93-5.22 HEMOGLOBIN (BEAKER) (test vegh=471) 7.3 GM/DL 11.2-15.7 HEMATOCRIT (BEAKER) (test csbt=041) 23.3 % 34.1-44.9 MEAN CORPUSCULAR VOLUME (BEAKER) (test sfuz=193) 92.1 fL 79.4-94.8 MEAN CORPUSCULAR HEMOGLOBIN (BEAKER) (test 28.9 pg 25.6-32.2 kojy=570) MEAN CORPUSCULAR HEMOGLOBIN CONC (BEAKER) (test 31.3 GM/DL 32.2-35.5 hnne=550) RED CELL DISTRIBUTION WIDTH (BEAKER) (test 20.2 % 11.7-14.4 pffg=801) PLATELET COUNT (BEAKER) (test tezi=455) 305 K/CU MM 150-450 MEAN PLATELET VOLUME (BEAKER) (test aozf=035) 12.0 fL 9.4-12.3 NUCLEATED RED BLOOD CELLS (BEAKER) (test 1 /100 WBC 0-0 neir=044) NEUTROPHILS RELATIVE PERCENT (BEAKER) (test 66 % yigo=054) LYMPHOCYTES RELATIVE PERCENT (BEAKER) (test 20 % pbda=515) MONOCYTES RELATIVE PERCENT (BEAKER) (test 11 % kyxx=274) EOSINOPHILS RELATIVE PERCENT (BEAKER) (test 3 % cnyn=845) BASOPHILS RELATIVE PERCENT (BEAKER) (test 0 % oqzf=524) NEUTROPHILS ABSOLUTE COUNT (BEAKER) (test 10.99 K/ L 1.56-6.13 izem=503) LYMPHOCYTES ABSOLUTE COUNT (BEAKER) (test 3.29 K/ L 1.18-3.74 wnpu=533) MONOCYTES ABSOLUTE COUNT (BEAKER) (test 1.89 K/ L 0.24-0.36 gtwa=677) EOSINOPHILS ABSOLUTE COUNT (BEAKER) (test 0.48 K/ L 0.04-0.36 hoew=209) BASOPHILS ABSOLUTE COUNT (BEAKER) (test 0.05 K/ L 0.01-0.08 jzdm=922) IMMATURE GRANULOCYTES-RELATIVE PERCENT (BEAKER) 0 % 0-1 (test zuio=5520) HEPATITIS PANEL, [id number] 14:32:00 Test Item Value Reference Range Comments HEPATITIS A IGM ANTIBODY (BEAKER) (test Nonreactive Nonreactive wdoi=544) HEPATITIS B CORE IGM ANTIBODY (BEAKER) (test Nonreactive Nonreactive kota=472) HEPATITIS C ANTIBODY (BEAKER) (test nkfk=006) Nonreactive Nonreactive HEPATITIS B SURFACE ANTIGEN (2) (BEAKER) (test Nonreactive Nonreactive vqth=5674) RAD, MANDIBLE, LESS THAN 4 [id number] 12:28:00Reason for exam:->fever, dental cariesFINAL REPORT Mandible [...] air cells are well aerated. Signed: Anselmo CainConelum Verified Date/Time: 11/16/2017 12:28:43 Reading Location: [facility] Radiology Reading Room RAD, CHEST, 2 [id number] 10:47:00Reason for exam:-> fever, chest painFINAL REPORT [...] No pneumothorax is seen. Signed: Anselmo Cain BluetectorepConelum Verified Date/Time: 11/16/2017 10:47:19 Reading Location: [facility] Radiology Reading Room URINE [id number] 09:53:00 Test Item Value Reference Range Comments CULTURE (BEAKER) (test amig=0660) >100,000 col/mL skin valentino CBC W/PLT COUNT & AUTO [id number] 09:20:00 Test Item Value Reference Range Comments WHITE BLOOD CELL COUNT (BEAKER) (test mkad=660) 18.6 K/ L 3.5-10.5 RED BLOOD CELL COUNT (BEAKER) (test uvrl=054) 2.63 M/ L 3.93-5.22 HEMOGLOBIN (BEAKER) (test wbkc=767) 7.6 GM/DL 11.2-15.7 HEMATOCRIT (BEAKER) (test cebs=806) 23.8 % 34.1-44.9 MEAN CORPUSCULAR VOLUME (BEAKER) (test upsl=585) 90.5 fL 79.4-94.8 MEAN CORPUSCULAR HEMOGLOBIN (BEAKER) (test 28.9 pg 25.6-32.2 suwi=919) MEAN CORPUSCULAR HEMOGLOBIN CONC (BEAKER) (test 31.9 GM/DL 32.2-35.5 xuno=210) RED CELL DISTRIBUTION WIDTH (BEAKER) (test 19.9 % 11.7-14.4 bztu=338) PLATELET COUNT (BEAKER) (test ssnk=317) 330 K/CU MM 150-450 MEAN PLATELET VOLUME (BEAKER) (test xlki=601) 11.9 fL 9.4-12.3 NUCLEATED RED BLOOD CELLS (BEAKER) (test 1 /100 WBC 0-0 kfse=227) NEUTROPHILS RELATIVE PERCENT (BEAKER) (test 65 % jcdb=838) LYMPHOCYTES RELATIVE PERCENT (BEAKER) (test 22 % xdeo=687) MONOCYTES RELATIVE PERCENT (BEAKER) (test 10 % ltco=785) EOSINOPHILS RELATIVE PERCENT (BEAKER) (test 2 % smli=346) BASOPHILS RELATIVE PERCENT (BEAKER) (test 0 % optr=330) NEUTROPHILS ABSOLUTE COUNT (BEAKER) (test 12.09 K/ L 1.56-6.13 pwxj=744) LYMPHOCYTES ABSOLUTE COUNT (BEAKER) (test 4.02 K/ L 1.18-3.74 quhb=971) MONOCYTES ABSOLUTE COUNT (BEAKER) (test 1.90 K/ L 0.24-0.36 mprk=333) EOSINOPHILS ABSOLUTE COUNT (BEAKER) (test 0.41 K/ L 0.04-0.36 gahx=326) BASOPHILS ABSOLUTE COUNT (BEAKER) (test 0.05 K/ L 0.01-0.08 zolc=630) IMMATURE GRANULOCYTES-RELATIVE PERCENT (BEAKER) 0 % 0-1 (test itor=5279) (MANUAL DIFFERENTIAL)2017-11-16 09:20:00 Test Item Value Reference Range Comments TOTAL COUNTED (BEAKER) (test cjlu=9555) WBC MORPHOLOGY (BEAKER) (test jnjm=002) Normal PLT MORPHOLOGY (BEAKER) (test vcix=666) Normal POLYCHROMATOPHILLIC RBCS(BEAKER) (test gyqq=728) 1+ few SICKLE CELLS (BEAKER) (test dgiz=492) 1+ few TARGET CELLS (BEAKER) (test alzd=249) 2+ moderate CALCIUM, [id number] 07:28:00 Test Item Value Reference Range Comments CALCIUM IONIZED (BEAKER) (test esee=072) 0.97 mmol/L 1.12-1.27 PH, BLOOD (BEAKER) (test odty=9144) 7.45 [id number] 05:48:00 Test Item Value Reference Range Comments PHOSPHORUS (BEAKER) (test gals=863) 4.8 mg/dL 2.3-4.7 [id number] 05:48:00 Test Item Value Reference Range Comments MAGNESIUM (BEAKER) (test xanu=210) 1.6 mg/dL 1.6-2.6 BASIC METABOLIC [id number] 05:48:00 Test Item Value Reference Range Comments SODIUM (BEAKER) (test 139 meq/L 136-145 egkw=886) POTASSIUM (BEAKER) (test 3.9 meq/L 3.5-5.1 kblg=294) CHLORIDE (BEAKER) (test 98 meq/L 98-107 qygy=531) CO2 (BEAKER) (test 32 meq/L 22-29 unnp=066) BLOOD UREA NITROGEN 23 mg/dL 7-21 (BEAKER) (test emmu=397) CREATININE (BEAKER) (test 1.10 mg/dL 0.57-1.25 ahsy=977) GLUCOSE RANDOM (BEAKER) 115 mg/dL 70-105 (test ogru=802) CALCIUM (BEAKER) (test 9.0 mg/dL 8.4-10.2 rpzh=904) EGFR (BEAKER) (test 67 mL/min/1.73 sq m ESTIMATED GFR IS NOT ajar=9346) ACCURATE CREATININE CLEARANCE IN PREDICTING GLOMERULAR FILTRATION RATE. ESTIMATED GFR IS NOT APPLICABLE FOR DIALYSIS PATIENTS. URINALYSIS W/ [id number] 19:14:00 Test Item Value Reference Range Comments COLOR (BEAKER) (test hacx=705) Yellow CLARITY (BEAKER) (test qbhj=724) Clear SPECIFIC GRAVITY UA (BEAKER) (test dkve=781) 1.006 1.001-1.035 PH UA (BEAKER) (test mmqm=388) 7.5 5.0-8.0 PROTEIN UA (BEAKER) (test uhkd=583) Negative Negative GLUCOSE UA (BEAKER) (test xldw=013) Negative Negative KETONES UA (BEAKER) (test hzgj=745) Negative Negative BILIRUBIN UA (BEAKER) (test ewdk=432) Negative Negative BLOOD UA (BEAKER) (test jodx=403) Trace Negative NITRITE UA (BEAKER) (test ikgi=309) Negative Negative LEUKOCYTE ESTERASE UA (BEAKER) (test ahcn=732) Small Negative UROBILINOGEN UA (BEAKER) (test jnrr=343) 0.2 mg/dL 0.2-1.0 RBC UA (BEAKER) (test pzob=919) < /HPF WBC UA (BEAKER) (test zflm=645) 7 /HPF BACTERIA (BEAKER) (test wrmm=181) Rare SQUAMOUS EPITHELIAL (BEAKER) (test vfyg=448) 1 /HPF SOURCE(BEAKER) (test yeax=1557) Urine, Voided [id number] 13:26:00 Test Item Value Reference Range Comments LIPASE (BEAKER) (test ndrl=075) 95 U/L 8-78 RAD, ABDOMEN/KUB, 1 VIEW [id number] 12:43:00Reason for exam:->abdominal painFINAL REPORT Abdomen one [...] MDReport Verified Date/Time: 11/15/2017 12:43:04 Reading Location: [facility] Reading Room CBC W/PLT COUNT & AUTO [id number] 10:00:00 Test Item Value Reference Range Comments WHITE BLOOD CELL COUNT (BEAKER) (test slue=738) 18.8 K/ L 3.5-10.5 RED BLOOD CELL COUNT (BEAKER) (test gsmp=982) 1.83 M/ L 3.93-5.22 HEMOGLOBIN (BEAKER) (test aykn=538) 5.4 GM/DL 11.2-15.7 HEMATOCRIT (BEAKER) (test zhvj=858) 16.7 % 34.1-44.9 MEAN CORPUSCULAR VOLUME (BEAKER) (test qxfd=070) 91.3 fL 79.4-94.8 MEAN CORPUSCULAR HEMOGLOBIN (BEAKER) (test 29.5 pg 25.6-32.2 tecy=779) MEAN CORPUSCULAR HEMOGLOBIN CONC (BEAKER) (test 32.3 GM/DL 32.2-35.5 xpec=887) RED CELL DISTRIBUTION WIDTH (BEAKER) (test 21.7 % 11.7-14.4 nnoa=699) PLATELET COUNT (BEAKER) (test prnm=526) 340 K/CU MM 150-450 MEAN PLATELET VOLUME (BEAKER) (test tlpb=065) 11.3 fL 9.4-12.3 NUCLEATED RED BLOOD CELLS (BEAKER) (test 2 /100 WBC 0-0 qdui=949) NEUTROPHILS RELATIVE PERCENT (BEAKER) (test 65 % satf=410) LYMPHOCYTES RELATIVE PERCENT (BEAKER) (test 23 % basv=020) MONOCYTES RELATIVE PERCENT (BEAKER) (test 10 % wntu=548) EOSINOPHILS RELATIVE PERCENT (BEAKER) (test 1 % jtel=803) BASOPHILS RELATIVE PERCENT (BEAKER) (test 0 % aalh=999) NEUTROPHILS ABSOLUTE COUNT (BEAKER) (test 12.25 K/ L 1.56-6.13 wzey=575) LYMPHOCYTES ABSOLUTE COUNT (BEAKER) (test 4.31 K/ L 1.18-3.74 lnea=904) MONOCYTES ABSOLUTE COUNT (BEAKER) (test 1.88 K/ L 0.24-0.36 gwno=200) EOSINOPHILS ABSOLUTE COUNT (BEAKER) (test 0.26 K/ L 0.04-0.36 yuih=597) BASOPHILS ABSOLUTE COUNT (BEAKER) (test 0.02 K/ L 0.01-0.08 xwpp=730) IMMATURE GRANULOCYTES-RELATIVE PERCENT (BEAKER) 1 % 0-1 (test uocw=4942) (MANUAL DIFFERENTIAL)2017-11-15 10:00:00 Test Item Value Reference Range Comments TOTAL COUNTED (BEAKER) (test tmxs=8862) ATYPICAL LYMPHS(BEAKER) (test xayo=9460) Present LARGE PLT(BEAKER) (test osla=3091) Present HYPOCHROMIA (BEAKER) (test fvno=457) 1+ few POLYCHROMATOPHILLIC RBCS(BEAKER) (test vbck=084) 1+ few SICKLE CELLS (BEAKER) (test jrut=932) 1+ few TARGET CELLS (BEAKER) (test eheb=678) 1+ few U/S, ENDOVAGINAL (EV)2017-11-15 09:03:00Reason for [...] characterize right ovarian dermoid. Signed: Funmilayo Gonzalez MDReport Verified Date/Time: 2017 09:03:15 Reading Location: [facility] [id number] Ultrasound Reading Room CBC W/ PLT COUNT & AUTO [id number] 08:32:00 Test Item Value Reference Range Comments WHITE BLOOD CELL COUNT (BEAKER) (test ykvp=615) 19.8 K/ L 3.5-10.5 RED BLOOD CELL COUNT (BEAKER) (test jjzi=159) 1.89 M/ L 3.93-5.22 HEMOGLOBIN (BEAKER) (test pqvs=695) 5.6 GM/DL 11.2-15.7 HEMATOCRIT (BEAKER) (test apld=295) 17.2 % 34.1-44.9 MEAN CORPUSCULAR VOLUME (BEAKER) (test pxpa=348) 91.0 fL 79.4-94.8 MEAN CORPUSCULAR HEMOGLOBIN (BEAKER) (test 29.6 pg 25.6-32.2 nphv=737) MEAN CORPUSCULAR HEMOGLOBIN CONC (BEAKER) (test 32.6 GM/DL 32.2-35.5 qcnv=810) RED CELL DISTRIBUTION WIDTH (BEAKER) (test 21.4 % 11.7-14.4 jalc=632) PLATELET COUNT (BEAKER) (test pktf=904) 366 K/CU MM 150-450 MEAN PLATELET VOLUME (BEAKER) (test ddrg=087) 11.6 fL 9.4-12.3 NUCLEATED RED BLOOD CELLS (BEAKER) (test 2 /100 WBC 0-0 rjdk=707) NEUTROPHILS RELATIVE PERCENT (BEAKER) (test 70 % bqtf=435) LYMPHOCYTES RELATIVE PERCENT (BEAKER) (test 18 % lrrh=762) MONOCYTES RELATIVE PERCENT (BEAKER) (test 10 % tjuq=878) EOSINOPHILS RELATIVE PERCENT (BEAKER) (test 1 % tnpx=452) BASOPHILS RELATIVE PERCENT (BEAKER) (test 0 % royw=731) NEUTROPHILS ABSOLUTE COUNT (BEAKER) (test 13.93 K/ L 1.56-6.13 ebmt=523) LYMPHOCYTES ABSOLUTE COUNT (BEAKER) (test 3.51 K/ L 1.18-3.74 bruc=125) MONOCYTES ABSOLUTE COUNT (BEAKER) (test 2.03 K/ L 0.24-0.36 hgun=478) EOSINOPHILS ABSOLUTE COUNT (BEAKER) (test 0.23 K/ L 0.04-0.36 ljar=536) BASOPHILS ABSOLUTE COUNT (BEAKER) (test 0.02 K/ L 0.01-0.08 xfpy=637) IMMATURE GRANULOCYTES-RELATIVE PERCENT (BEAKER) 0 % 0-1 (test keoc=6129) [id number] 06:16:00 Test Item Value Reference Range Comments PHOSPHORUS (BEAKER) (test rqlk=751) 4.6 mg/dL 2.3-4.7 [id number] 06:16:00 Test Item Value Reference Range Comments MAGNESIUM (BEAKER) (test rvmt=346) 1.6 mg/dL 1.6-2.6 BASIC METABOLIC [id number] 06:16:00 Test Item Value Reference Range Comments SODIUM (BEAKER) (test 139 meq/L 136-145 urwt=809) POTASSIUM (BEAKER) (test 3.9 meq/L 3.5-5.1 yovg=403) CHLORIDE (BEAKER) (test 97 meq/L 98-107 rqap=973) CO2 (BEAKER) (test 33 meq/L 22-29 wbdx=246) BLOOD UREA NITROGEN 24 mg/dL 7-21 (BEAKER) (test ecpg=897) CREATININE (BEAKER) (test 1.15 mg/dL 0.57-1.25 ywfj=563) GLUCOSE RANDOM (BEAKER) 104 mg/dL 70-105 (test vscd=086) CALCIUM (BEAKER) (test 9.1 mg/dL 8.4-10.2 dwtj=701) EGFR (BEAKER) (test 64 mL/min/1.73 sq m ESTIMATED GFR IS NOT sunu=2703) ACCURATE CREATININE CLEARANCE IN PREDICTING GLOMERULAR FILTRATION RATE. ESTIMATED GFR IS NOT APPLICABLE FOR DIALYSIS PATIENTS. HEPATIC FUNCTION [id number] 06:16:00 Test Item Value Reference Range Comments TOTAL PROTEIN (BEAKER) (test bwrm=324) 8.2 gm/dL 6.0-8.3 ALBUMIN (BEAKER) (test zkwo=7937) 2.9 g/dL 3.5-5.0 BILIRUBIN TOTAL (BEAKER) (test qrno=234) 1.1 mg/dL 0.2-1.2 BILIRUBIN DIRECT (BEAKER) (test nvgy=085) 0.5 mg/dL 0.1-0.5 ALKALINE PHOSPHATASE (BEAKER) (test lcet=875) 164 U/L 40-150 AST (SGOT) (BEAKER) (test ypxf=756) 76 U/L 5-34 ALT (SGPT) (BEAKER) (test guwl=949) 34 U/L 6-55 CALCIUM, [id number] 06:00:00 Test Item Value Reference Range Comments CALCIUM IONIZED (BEAKER) (test wwdp=503) 0.93 mmol/L 1.12-1.27 PH, BLOOD (BEAKER) (test kxhu=2544) 7.52 URINALYSIS W/ [id number] 18:32:00 Test Item Value Reference Range Comments COLOR (BEAKER) (test ehyx=196) Light Yellow CLARITY (BEAKER) (test vbbo=400) Clear SPECIFIC GRAVITY UA (BEAKER) (test gjvx=445) 1.006 1.001-1.035 PH UA (BEAKER) (test yzzh=717) 7.0 5.0-8.0 PROTEIN UA (BEAKER) (test dicv=159) Negative Negative GLUCOSE UA (BEAKER) (test aywp=964) Negative Negative KETONES UA (BEAKER) (test izcu=839) Negative Negative BILIRUBIN UA (BEAKER) (test dxut=357) Negative Negative BLOOD UA (BEAKER) (test anpq=942) Trace Negative NITRITE UA (BEAKER) (test sxgq=665) Negative Negative LEUKOCYTE ESTERASE UA (BEAKER) (test itqr=766) Small Negative UROBILINOGEN UA (BEAKER) (test eqmy=405) 0.2 mg/dL 0.2-1.0 RBC UA (BEAKER) (test wsxc=935) 1 /HPF WBC UA (BEAKER) (test uhfa=331) 7 /HPF BACTERIA (BEAKER) (test kelt=604) Rare MUCUS (BEAKER) (test ttlf=8552) Rare SQUAMOUS EPITHELIAL (BEAKER) (test heqo=659) 4 /HPF SOURCE(BEAKER) (test owiy=6068) Urine, Voided CALCIUM, [id number] 07:19:00 Test Item Value Reference Range Comments CALCIUM IONIZED (BEAKER) (test lbqk=757) 1.03 mmol/L 1.12-1.27 PH, BLOOD (BEAKER) (test ouzo=8601) 7.40 CBC W/PLT COUNT & AUTO [id number] 06:26:00 Test Item Value Reference Range Comments WHITE BLOOD CELL COUNT (BEAKER) (test ddcx=711) 18.5 K/ L 3.5-10.5 RED BLOOD CELL COUNT (BEAKER) (test iety=671) 2.02 M/ L 3.93-5.22 HEMOGLOBIN (BEAKER) (test azav=357) 6.0 GM/DL 11.2-15.7 HEMATOCRIT (BEAKER) (test qhfz=764) 18.5 % 34.1-44.9 MEAN CORPUSCULAR VOLUME (BEAKER) (test raup=280) 91.6 fL 79.4-94.8 MEAN CORPUSCULAR HEMOGLOBIN (BEAKER) (test 29.7 pg 25.6-32.2 twtz=492) MEAN CORPUSCULAR HEMOGLOBIN CONC (BEAKER) (test 32.4 GM/DL 32.2-35.5 wibz=739) RED CELL DISTRIBUTION WIDTH (BEAKER) (test 21.9 % 11.7-14.4 onzp=231) PLATELET COUNT (BEAKER) (test heqp=665) 337 K/CU MM 150-450 MEAN PLATELET VOLUME (BEAKER) (test qkbw=327) 11.7 fL 9.4-12.3 NUCLEATED RED BLOOD CELLS (BEAKER) (test 4 /100 WBC 0-0 mioc=088) NEUTROPHILS RELATIVE PERCENT (BEAKER) (test 76 % boks=448) LYMPHOCYTES RELATIVE PERCENT (BEAKER) (test 16 % dnjo=297) MONOCYTES RELATIVE PERCENT (BEAKER) (test 6 % njea=500) EOSINOPHILS RELATIVE PERCENT (BEAKER) (test 1 % khse=957) BASOPHILS RELATIVE PERCENT (BEAKER) (test 0 % pgbc=087) NEUTROPHILS ABSOLUTE COUNT (BEAKER) (test 13.98 K/ L 1.56-6.13 podw=376) LYMPHOCYTES ABSOLUTE COUNT (BEAKER) (test 3.02 K/ L 1.18-3.74 jhek=574) MONOCYTES ABSOLUTE COUNT (BEAKER) (test 1.13 K/ L 0.24-0.36 zhbk=871) EOSINOPHILS ABSOLUTE COUNT (BEAKER) (test 0.09 K/ L 0.04-0.36 vqhp=101) BASOPHILS ABSOLUTE COUNT (BEAKER) (test 0.05 K/ L 0.01-0.08 ikot=780) IMMATURE GRANULOCYTES-RELATIVE PERCENT (BEAKER) 1 % 0-1 (test akaj=0399) [id number] 06:21:00 Test Item Value Reference Range Comments PHOSPHORUS (BEAKER) (test rmip=282) 4.3 mg/dL 2.3-4.7 [id number] 06:21:00 Test Item Value Reference Range Comments MAGNESIUM (BEAKER) (test uhth=517) 2.1 mg/dL 1.6-2.6 BASIC METABOLIC [id number] 06:21:00 Test Item Value Reference Range Comments SODIUM (BEAKER) (test 139 meq/L 136-145 nege=861) POTASSIUM (BEAKER) (test 4.0 meq/L 3.5-5.1 cpzc=238) CHLORIDE (BEAKER) (test 99 meq/L 98-107 ugbp=893) CO2 (BEAKER) (test 31 meq/L 22-29 pnqu=814) BLOOD UREA NITROGEN 23 mg/dL 7-21 (BEAKER) (test svza=356) CREATININE (BEAKER) (test 1.29 mg/dL 0.57-1.25 stut=715) GLUCOSE RANDOM (BEAKER) 116 mg/dL 70-105 (test lifi=598) CALCIUM (BEAKER) (test 8.8 mg/dL 8.4-10.2 potq=762) EGFR (BEAKER) (test 56 mL/min/1.73 sq m ESTIMATED GFR IS NOT xwov=9757) ACCURATE CREATININE CLEARANCE IN PREDICTING GLOMERULAR FILTRATION RATE. ESTIMATED GFR IS NOT APPLICABLE FOR DIALYSIS PATIENTS. B-TYPE NATRIURETIC FACTOR (BNP)2017-11-13 07:27:00 Test Item Value Reference Range Comments B-TYPE NATRIURETIC PEPTIDE (BEAKER) (test 166 pg/mL 0-100 pwto=447) [id number] 07:26:00 Test Item Value Reference Range Comments PHOSPHORUS (BEAKER) (test hgwp=700) 4.6 mg/dL 2.3-4.7 [id number] 07:26:00 Test Item Value Reference Range Comments MAGNESIUM (BEAKER) (test kqly=234) 1.6 mg/dL 1.6-2.6 BASIC METABOLIC [id number] 07:26:00 Test Item Value Reference Range Comments SODIUM (BEAKER) (test 139 meq/L 136-145 sfzh=032) POTASSIUM (BEAKER) (test 3.5 meq/L 3.5-5.1 wtkg=536) CHLORIDE (BEAKER) (test 101 meq/L 98-107 jzcn=962) CO2 (BEAKER) (test 32 meq/L 22-29 xzrk=246) BLOOD UREA NITROGEN 14 mg/dL 7-21 (BEAKER) (test ywkv=346) CREATININE (BEAKER) (test 1.09 mg/dL 0.57-1.25 dauv=198) GLUCOSE RANDOM (BEAKER) 92 mg/dL 70-105 (test rllw=689) CALCIUM (BEAKER) (test 8.5 mg/dL 8.4-10.2 ovhz=315) EGFR (BEAKER) (test 68 mL/min/1.73 sq m ESTIMATED GFR IS NOT ioua=8678) ACCURATE CREATININE CLEARANCE IN PREDICTING GLOMERULAR FILTRATION RATE. ESTIMATED GFR IS NOT APPLICABLE FOR DIALYSIS PATIENTS. CBC W/PLT COUNT & AUTO [id number] 07:23:00 Test Item Value Reference Range Comments WHITE BLOOD CELL COUNT (BEAKER) (test ughq=726) 18.4 K/ L 3.5-10.5 RED BLOOD CELL COUNT (BEAKER) (test zlub=693) 2.03 M/ L 3.93-5.22 HEMOGLOBIN (BEAKER) (test zzfw=391) 6.0 GM/DL 11.2-15.7 HEMATOCRIT (BEAKER) (test okhu=214) 18.8 % 34.1-44.9 MEAN CORPUSCULAR VOLUME (BEAKER) (test ejnx=355) 92.6 fL 79.4-94.8 MEAN CORPUSCULAR HEMOGLOBIN (BEAKER) (test 29.6 pg 25.6-32.2 tsqx=830) MEAN CORPUSCULAR HEMOGLOBIN CONC (BEAKER) (test 31.9 GM/DL 32.2-35.5 hfma=813) RED CELL DISTRIBUTION WIDTH (BEAKER) (test 22.9 % 11.7-14.4 trhv=912) PLATELET COUNT (BEAKER) (test imnh=086) 302 K/CU MM 150-450 MEAN PLATELET VOLUME (BEAKER) (test vjdy=180) 11.3 fL 9.4-12.3 NUCLEATED RED BLOOD CELLS (BEAKER) (test 7 /100 WBC 0-0 reyq=448) NEUTROPHILS RELATIVE PERCENT (BEAKER) (test 74 % ocko=538) LYMPHOCYTES RELATIVE PERCENT (BEAKER) (test 18 % ewna=563) MONOCYTES RELATIVE PERCENT (BEAKER) (test 7 % scqq=178) EOSINOPHILS RELATIVE PERCENT (BEAKER) (test 0 % wykc=272) BASOPHILS RELATIVE PERCENT (BEAKER) (test 0 % qucn=828) NEUTROPHILS ABSOLUTE COUNT (BEAKER) (test 13.58 K/ L 1.56-6.13 mbyz=741) LYMPHOCYTES ABSOLUTE COUNT (BEAKER) (test 3.24 K/ L 1.18-3.74 kbhi=131) MONOCYTES ABSOLUTE COUNT (BEAKER) (test 1.23 K/ L 0.24-0.36 ivvo=560) EOSINOPHILS ABSOLUTE COUNT (BEAKER) (test 0.07 K/ L 0.04-0.36 yqse=380) BASOPHILS ABSOLUTE COUNT (BEAKER) (test 0.05 K/ L 0.01-0.08 vjbd=752) IMMATURE GRANULOCYTES-RELATIVE PERCENT (BEAKER) 1 % 0-1 (test ogyv=3434) CALCIUM, [id number] 07:08:00 Test Item Value Reference Range Comments CALCIUM IONIZED (BEAKER) (test skbo=394) 1.03 mmol/L 1.12-1.27 PH, BLOOD (BEAKER) (test iqgi=2000) 7.38 CBC W/PLT COUNT & AUTO [id number] 08:23:00 Test Item Value Reference Range Comments WHITE BLOOD CELL COUNT (BEAKER) (test ewbg=774) 20.4 K/ L 3.5-10.5 RED BLOOD CELL COUNT (BEAKER) (test leuz=166) 2.08 M/ L 3.93-5.22 HEMOGLOBIN (BEAKER) (test ofde=657) 6.4 GM/DL 11.2-15.7 HEMATOCRIT (BEAKER) (test clnv=537) 19.7 % 34.1-44.9 MEAN CORPUSCULAR VOLUME (BEAKER) (test furk=194) 94.7 fL 79.4-94.8 MEAN CORPUSCULAR HEMOGLOBIN (BEAKER) (test 30.8 pg 25.6-32.2 oban=375) MEAN CORPUSCULAR HEMOGLOBIN CONC (BEAKER) (test 32.5 GM/DL 32.2-35.5 ozzf=392) RED CELL DISTRIBUTION WIDTH (BEAKER) (test 24.3 % 11.7-14.4 ytht=839) PLATELET COUNT (BEAKER) (test rfzl=603) 290 K/CU MM 150-450 MEAN PLATELET VOLUME (BEAKER) (test zdki=056) 11.5 fL 9.4-12.3 NUCLEATED RED BLOOD CELLS (BEAKER) (test 19 /100 WBC 0-0 sxyo=709) NEUTROPHILS RELATIVE PERCENT (BEAKER) (test 75 % kyog=726) LYMPHOCYTES RELATIVE PERCENT (BEAKER) (test 16 % wvla=079) MONOCYTES RELATIVE PERCENT (BEAKER) (test 8 % nnhi=175) EOSINOPHILS RELATIVE PERCENT (BEAKER) (test 0 % gfjx=016) BASOPHILS RELATIVE PERCENT (BEAKER) (test 0 % haiu=844) NEUTROPHILS ABSOLUTE COUNT (BEAKER) (test 15.32 K/ L 1.56-6.13 hjue=965) LYMPHOCYTES ABSOLUTE COUNT (BEAKER) (test 3.24 K/ L 1.18-3.74 csdb=300) MONOCYTES ABSOLUTE COUNT (BEAKER) (test 1.61 K/ L 0.24-0.36 jrfw=774) EOSINOPHILS ABSOLUTE COUNT (BEAKER) (test 0.05 K/ L 0.04-0.36 ofpk=436) BASOPHILS ABSOLUTE COUNT (BEAKER) (test 0.04 K/ L 0.01-0.08 dfcw=784) IMMATURE GRANULOCYTES-RELATIVE PERCENT (BEAKER) 0 % 0-1 (test aobx=7156) (MANUAL DIFFERENTIAL)2017-11-12 08:23:00 Test Item Value Reference Range Comments TOTAL COUNTED (BEAKER) (test ufms=2802) WBC MORPHOLOGY (BEAKER) (test tgyh=610) Normal LARGE PLT(BEAKER) (test kodt=9116) Present HYPOCHROMIA (BEAKER) (test tcfy=733) 1+ few POLYCHROMATOPHILLIC RBCS(BEAKER) (test ymlr=121) 1+ few SICKLE CELLS (BEAKER) (test rors=818) 1+ few TARGET CELLS (BEAKER) (test dmxb=615) 1+ few [id number] 08:11:00 Test Item Value Reference Range Comments PHOSPHORUS (BEAKER) (test kwxd=371) 4.3 mg/dL 2.3-4.7 [id number] 08:11:00 Test Item Value Reference Range Comments MAGNESIUM (BEAKER) (test jzel=976) 1.3 mg/dL 1.6-2.6 BASIC METABOLIC [id number] 08:11:00 Test Item Value Reference Range Comments SODIUM (BEAKER) (test 140 meq/L 136-145 qolz=361) POTASSIUM (BEAKER) (test 3.4 meq/L 3.5-5.1 kaph=921) CHLORIDE (BEAKER) (test 103 meq/L 98-107 sfoq=050) CO2 (BEAKER) (test 27 meq/L 22-29 iuab=872) BLOOD UREA NITROGEN 15 mg/dL 7-21 (BEAKER) (test hjqw=807) CREATININE (BEAKER) (test 1.10 mg/dL 0.57-1.25 hdxh=470) GLUCOSE RANDOM (BEAKER) 91 mg/dL 70-105 (test slkg=598) CALCIUM (BEAKER) (test 8.5 mg/dL 8.4-10.2 vnsv=082) EGFR (BEAKER) (test 67 mL/min/1.73 sq m ESTIMATED GFR IS NOT vjaf=7839) ACCURATE CREATININE CLEARANCE IN PREDICTING GLOMERULAR FILTRATION RATE. ESTIMATED GFR IS NOT APPLICABLE FOR DIALYSIS PATIENTS. CALCIUM, [id number] 07:19:00 Test Item Value Reference Range Comments CALCIUM IONIZED (BEAKER) (test xwgv=055) 0.98 mmol/L 1.12-1.27 PH, BLOOD (BEAKER) (test yfcl=9666) 7.39 BLOOD [id number] 00:00:00 Test Item Value Reference Range Comments CULTURE (BEAKER) (test vzsd=8234) No growth in 5 days CBC W/PLT COUNT & AUTO [id number] 13:18:00 Test Item Value Reference Range Comments WHITE BLOOD CELL COUNT (BEAKER) (test tttm=919) 20.7 K/ L 3.5-10.5 RED BLOOD CELL COUNT (BEAKER) (test lubo=468) 2.12 M/ L 3.93-5.22 HEMOGLOBIN (BEAKER) (test dfgj=993) 6.7 GM/DL 11.2-15.7 HEMATOCRIT (BEAKER) (test wyww=328) 20.4 % 34.1-44.9 MEAN CORPUSCULAR VOLUME (BEAKER) (test rgry=637) 96.2 fL 79.4-94.8 MEAN CORPUSCULAR HEMOGLOBIN (BEAKER) (test 31.6 pg 25.6-32.2 dtyk=917) MEAN CORPUSCULAR HEMOGLOBIN CONC (BEAKER) (test 32.8 GM/DL 32.2-35.5 wjrv=969) RED CELL DISTRIBUTION WIDTH (BEAKER) (test 25.9 % 11.7-14.4 ysgn=382) PLATELET COUNT (BEAKER) (test fhox=340) 262 K/CU MM 150-450 MEAN PLATELET VOLUME (BEAKER) (test vouo=171) 11.2 fL 9.4-12.3 NUCLEATED RED BLOOD CELLS (BEAKER) (test 40 /100 WBC 0-0 gmlz=376) NEUTROPHILS RELATIVE PERCENT (BEAKER) (test 76 % xpqu=852) LYMPHOCYTES RELATIVE PERCENT (BEAKER) (test 16 % dibd=343) MONOCYTES RELATIVE PERCENT (BEAKER) (test 8 % pyuf=082) EOSINOPHILS RELATIVE PERCENT (BEAKER) (test 0 % qvom=847) BASOPHILS RELATIVE PERCENT (BEAKER) (test 0 % ddzw=246) NEUTROPHILS ABSOLUTE COUNT (BEAKER) (test 15.60 K/ L 1.56-6.13 wjuc=191) LYMPHOCYTES ABSOLUTE COUNT (BEAKER) (test 3.23 K/ L 1.18-3.74 dxnh=099) MONOCYTES ABSOLUTE COUNT (BEAKER) (test 1.54 K/ L 0.24-0.36 vupw=972) EOSINOPHILS ABSOLUTE COUNT (BEAKER) (test 0.02 K/ L 0.04-0.36 ynyp=713) BASOPHILS ABSOLUTE COUNT (BEAKER) (test 0.05 K/ L 0.01-0.08 oylt=546) IMMATURE GRANULOCYTES-RELATIVE PERCENT (BEAKER) 1 % 0-1 (test syky=3868) (MANUAL DIFFERENTIAL)2017-11-11 13:18:00 Test Item Value Reference Range Comments TOTAL COUNTED (BEAKER) (test ucya=8340) WBC MORPHOLOGY (BEAKER) (test jxti=411) Normal LARGE PLT(BEAKER) (test femo=5064) Present POLYCHROMATOPHILLIC RBCS(BEAKER) (test nmlf=648) 1+ few SICKLE CELLS (BEAKER) (test nlas=763) 1+ few TARGET CELLS (BEAKER) (test eiim=371) 1+ few [id number] 08:05:00 Test Item Value Reference Range Comments PHOSPHORUS (BEAKER) (test davb=487) 5.0 mg/dL 2.3-4.7 [id number] 08:05:00 Test Item Value Reference Range Comments MAGNESIUM (BEAKER) (test zoqu=020) 1.6 mg/dL 1.6-2.6 BASIC METABOLIC [id number] 08:05:00 Test Item Value Reference Range Comments SODIUM (BEAKER) (test 140 meq/L 136-145 jaus=907) POTASSIUM (BEAKER) (test 3.7 meq/L 3.5-5.1 vbqq=431) CHLORIDE (BEAKER) (test 107 meq/L 98-107 hhvx=796) CO2 (BEAKER) (test 24 meq/L 22-29 nbxk=278) BLOOD UREA NITROGEN 19 mg/dL 7-21 (BEAKER) (test wdcx=385) CREATININE (BEAKER) (test 1.23 mg/dL 0.57-1.25 gdqy=663) GLUCOSE RANDOM (BEAKER) 96 mg/dL 70-105 (test xoqa=155) CALCIUM (BEAKER) (test 8.5 mg/dL 8.4-10.2 ttrg=813) EGFR (BEAKER) (test 59 mL/min/1.73 sq m ESTIMATED GFR IS NOT pjja=1071) ACCURATE CREATININE CLEARANCE IN PREDICTING GLOMERULAR FILTRATION RATE. ESTIMATED GFR IS NOT APPLICABLE FOR DIALYSIS PATIENTS. CALCIUM, [id number] 06:38:00 Test Item Value Reference Range Comments CALCIUM IONIZED (BEAKER) (test vptr=447) 1.07 mmol/L 1.12-1.27 PH, BLOOD (BEAKER) (test vrti=1080) 7.31 CBC W/PLT COUNT & AUTO [id number] 14:53:00 Test Item Value Reference Range Comments WHITE BLOOD CELL COUNT (BEAKER) (test gagn=630) 21.8 K/ L 3.5-10.5 RED BLOOD CELL COUNT (BEAKER) (test imwc=207) 2.17 M/ L 3.93-5.22 HEMOGLOBIN (BEAKER) (test ospo=721) 6.8 GM/DL 11.2-15.7 HEMATOCRIT (BEAKER) (test shoi=303) 21.3 % 34.1-44.9 MEAN CORPUSCULAR VOLUME (BEAKER) (test uitd=562) 98.2 fL 79.4-94.8 MEAN CORPUSCULAR HEMOGLOBIN (BEAKER) (test 31.3 pg 25.6-32.2 ssrh=758) MEAN CORPUSCULAR HEMOGLOBIN CONC (BEAKER) (test 31.9 GM/DL 32.2-35.5 wyzm=645) RED CELL DISTRIBUTION WIDTH (BEAKER) (test 27.6 % 11.7-14.4 nfcu=586) PLATELET COUNT (BEAKER) (test krry=764) 244 K/CU MM 150-450 MEAN PLATELET VOLUME (BEAKER) (test mfru=506) 11.4 fL 9.4-12.3 NUCLEATED RED BLOOD CELLS (BEAKER) (test 80 /100 WBC 0-0 cihf=751) NEUTROPHILS RELATIVE PERCENT (BEAKER) (test 82 % cysm=216) LYMPHOCYTES RELATIVE PERCENT (BEAKER) (test 7 % brrt=750) MONOCYTES RELATIVE PERCENT (BEAKER) (test 10 % gifz=420) EOSINOPHILS RELATIVE PERCENT (BEAKER) (test 0 % pxie=990) BASOPHILS RELATIVE PERCENT (BEAKER) (test 0 % mytw=062) NEUTROPHILS ABSOLUTE COUNT (BEAKER) (test 17.85 K/ L 1.56-6.13 pehr=098) LYMPHOCYTES ABSOLUTE COUNT (BEAKER) (test 1.60 K/ L 1.18-3.74 kphd=003) MONOCYTES ABSOLUTE COUNT (BEAKER) (test 2.14 K/ L 0.24-0.36 sxdn=187) EOSINOPHILS ABSOLUTE COUNT (BEAKER) (test 0.03 K/ L 0.04-0.36 sonv=647) BASOPHILS ABSOLUTE COUNT (BEAKER) (test 0.03 K/ L 0.01-0.08 ytiz=398) IMMATURE GRANULOCYTES-RELATIVE PERCENT (BEAKER) 1 % 0-1 (test yftg=6491) (MANUAL DIFFERENTIAL)2017-11-10 14:53:00 Test Item Value Reference Range Comments TOTAL COUNTED (BEAKER) (test sikk=8019) WBC MORPHOLOGY (BEAKER) (test afyf=772) Normal LARGE PLT(BEAKER) (test teyj=3944) Present SCHISTOCYTES (BEAKER) (test xxbd=967) 1+ few ACANTHOCYTES (BEAKER) (test vmyr=096) 1+ few ANISOCYTOSIS (BEAKER) (test sahq=347) 2+ moderate HYPOCHROMIA (BEAKER) (test xixn=253) 2+ moderate MACROCYTES (BEAKER) (test icwx=684) 3+ many MICROCYTES (BEAKER) (test cqtl=127) 2+ moderate OVALOCYTES (BEAKER) (test xkoa=615) 1+ few POIKILOCYTES (BEAKER) (test hajg=851) 3+ many POLYCHROMATOPHILLIC RBCS(BEAKER) (test erun=808) 2+ moderate SICKLE CELLS (BEAKER) (test pghx=781) 2+ moderate TARGET CELLS (BEAKER) (test hcbc=103) 1+ few BASIC METABOLIC [id number] 08:54:00 Test Item Value Reference Range Comments SODIUM (BEAKER) (test 140 meq/L 136-145 emnb=091) POTASSIUM (BEAKER) (test 4.0 meq/L 3.5-5.1 gxhe=016) CHLORIDE (BEAKER) (test 109 meq/L 98-107 ania=295) CO2 (BEAKER) (test 19 meq/L 22-29 aywd=501) BLOOD UREA NITROGEN 21 mg/dL 7-21 (BEAKER) (test rtde=414) CREATININE (BEAKER) (test 1.27 mg/dL 0.57-1.25 vjwa=554) GLUCOSE RANDOM (BEAKER) 122 mg/dL 70-105 (test kuxc=477) CALCIUM (BEAKER) (test 8.6 mg/dL 8.4-10.2 teuo=617) EGFR (BEAKER) (test 57 mL/min/1.73 sq m ESTIMATED GFR IS NOT kdcx=2645) ACCURATE CREATININE CLEARANCE IN PREDICTING GLOMERULAR FILTRATION RATE. ESTIMATED GFR IS NOT APPLICABLE FOR DIALYSIS PATIENTS. [id number] 08:54:00 Test Item Value Reference Range Comments MAGNESIUM (BEAKER) (test hxar=313) 1.5 mg/dL 1.6-2.6 [id number] 08:54:00 Test Item Value Reference Range Comments PHOSPHORUS (BEAKER) (test cglz=422) 4.5 mg/dL 2.3-4.7 COMPREHENSIVE METABOLIC [id number] 08:54:00 Test Item Value Reference Range Comments TOTAL PROTEIN (BEAKER) 8.2 gm/dL 6.0-8.3 (test faum=561) ALBUMIN (BEAKER) (test 3.1 g/dL 3.5-5.0 svpv=2004) ALKALINE PHOSPHATASE 154 U/L 40-150 (BEAKER) (test preo=376) BILIRUBIN TOTAL (BEAKER) 1.4 mg/dL 0.2-1.2 (test jsob=850) SODIUM (BEAKER) (test 140 meq/L 136-145 uhla=024) POTASSIUM (BEAKER) (test 4.0 meq/L 3.5-5.1 sdlc=922) CHLORIDE (BEAKER) (test 109 meq/L 98-107 rjaa=582) CO2 (BEAKER) (test 19 meq/L 22-29 jdcn=780) BLOOD UREA NITROGEN 21 mg/dL 7-21 (BEAKER) (test qyup=968) CREATININE (BEAKER) (test 1.27 mg/dL 0.57-1.25 uqwi=507) GLUCOSE RANDOM (BEAKER) 122 mg/dL 70-105 (test pnbq=736) CALCIUM (BEAKER) (test 8.6 mg/dL 8.4-10.2 vumx=285) AST (SGOT) (BEAKER) (test 72 U/L 5-34 zkey=579) ALT (SGPT) (BEAKER) (test 50 U/L 6-55 qvsu=972) EGFR (BEAKER) (test 57 mL/min/1.73 sq m ESTIMATED GFR IS NOT sqdc=9984) ACCURATE CREATININE CLEARANCE IN PREDICTING GLOMERULAR FILTRATION RATE. ESTIMATED GFR IS NOT APPLICABLE FOR DIALYSIS PATIENTS. CALCIUM, [id number] 07:21:00 Test Item Value Reference Range Comments CALCIUM IONIZED (BEAKER) (test zwdp=951) 1.04 mmol/L 1.12-1.27 PH, BLOOD (BEAKER) (test upng=4439) 7.39 CBC W/PLT COUNT & AUTO [id number] 12:10:00 Test Item Value Reference Range Comments WHITE BLOOD CELL COUNT (BEAKER) (test axag=318) 20.8 K/ L 3.5-10.5 RED BLOOD CELL COUNT (BEAKER) (test pewh=915) 2.11 M/ L 3.93-5.22 HEMOGLOBIN (BEAKER) (test jmdv=980) 6.6 GM/DL 11.2-15.7 HEMATOCRIT (BEAKER) (test exhi=215) 20.4 % 34.1-44.9 MEAN CORPUSCULAR VOLUME (BEAKER) (test znuy=586) 96.7 fL 79.4-94.8 MEAN CORPUSCULAR HEMOGLOBIN (BEAKER) (test 31.3 pg 25.6-32.2 esad=838) MEAN CORPUSCULAR HEMOGLOBIN CONC (BEAKER) (test 32.4 GM/DL 32.2-35.5 carc=887) RED CELL DISTRIBUTION WIDTH (BEAKER) (test 27.2 % 11.7-14.4 afbp=386) PLATELET COUNT (BEAKER) (test ogrl=236) 237 K/CU MM 150-450 MEAN PLATELET VOLUME (BEAKER) (test bodc=999) 10.7 fL 9.4-12.3 NUCLEATED RED BLOOD CELLS (BEAKER) (test 98 /100 WBC 0-0 udtv=010) NEUTROPHILS RELATIVE PERCENT (BEAKER) (test 82 % akps=880) LYMPHOCYTES RELATIVE PERCENT (BEAKER) (test 6 % xtow=969) MONOCYTES RELATIVE PERCENT (BEAKER) (test 11 % jyka=824) EOSINOPHILS RELATIVE PERCENT (BEAKER) (test 0 % jbks=257) BASOPHILS RELATIVE PERCENT (BEAKER) (test 0 % iztu=438) NEUTROPHILS ABSOLUTE COUNT (BEAKER) (test 16.91 K/ L 1.56-6.13 flkd=140) LYMPHOCYTES ABSOLUTE COUNT (BEAKER) (test 1.31 K/ L 1.18-3.74 cfyy=421) MONOCYTES ABSOLUTE COUNT (BEAKER) (test 2.37 K/ L 0.24-0.36 kjsr=590) EOSINOPHILS ABSOLUTE COUNT (BEAKER) (test 0.01 K/ L 0.04-0.36 uuod=884) BASOPHILS ABSOLUTE COUNT (BEAKER) (test 0.05 K/ L 0.01-0.08 osri=028) IMMATURE GRANULOCYTES-RELATIVE PERCENT (BEAKER) 1 % 0-1 (test rhau=1035) (MANUAL DIFFERENTIAL)2017-11-09 12:10:00 Test Item Value Reference Range Comments TOTAL COUNTED (BEAKER) (test fyxv=6413) WBC MORPHOLOGY (BEAKER) (test mjgb=278) Normal PLT MORPHOLOGY (BEAKER) (test fvvs=833) Normal ANISOCYTOSIS (BEAKER) (test oard=677) 2+ moderate MATTHEWS-JOLLY BODIES (BEAKER) (test vldt=595) 1+ few POIKILOCYTES (BEAKER) (test weao=971) 2+ moderate POLYCHROMATOPHILLIC RBCS(BEAKER) (test gili=095) 1+ few SICKLE CELLS (BEAKER) (test saie=867) 2+ moderate TARGET CELLS (BEAKER) (test ptir=283) 1+ few CALCIUM, [id number] 07:44:00 Test Item Value Reference Range Comments CALCIUM IONIZED (BEAKER) (test xoqn=463) 1.16 mmol/L 1.12-1.27 PH, BLOOD (BEAKER) (test kytx=1008) 7.25 B-TYPE NATRIURETIC FACTOR (BNP)2017-11-09 07:43:00 Test Item Value Reference Range Comments B-TYPE NATRIURETIC PEPTIDE (BEAKER) (test 903 pg/mL 0-100 flkc=043) [id number] 07:27:00 Test Item Value Reference Range Comments PHOSPHORUS (BEAKER) (test hbfv=048) 4.4 mg/dL 2.3-4.7 [id number] 07:27:00 Test Item Value Reference Range Comments MAGNESIUM (BEAKER) (test reag=108) 1.7 mg/dL 1.6-2.6 COMPREHENSIVE METABOLIC [id number] 07:27:00 Test Item Value Reference Range Comments TOTAL PROTEIN (BEAKER) 7.8 gm/dL 6.0-8.3 (test xhkt=519) ALBUMIN (BEAKER) (test 3.2 g/dL 3.5-5.0 gxak=5602) ALKALINE PHOSPHATASE 165 U/L 40-150 (BEAKER) (test gdxb=633) BILIRUBIN TOTAL (BEAKER) 1.3 mg/dL 0.2-1.2 (test glbx=621) SODIUM (BEAKER) (test 143 meq/L 136-145 gwxl=663) POTASSIUM (BEAKER) (test 4.2 meq/L 3.5-5.1 ynmb=817) CHLORIDE (BEAKER) (test 112 meq/L 98-107 zmiz=159) CO2 (BEAKER) (test 23 meq/L 22-29 sltg=829) BLOOD UREA NITROGEN 29 mg/dL 7-21 (BEAKER) (test aris=756) CREATININE (BEAKER) (test 1.54 mg/dL 0.57-1.25 hdkm=891) GLUCOSE RANDOM (BEAKER) 108 mg/dL 70-105 (test xmtd=766) CALCIUM (BEAKER) (test 9.1 mg/dL 8.4-10.2 rgnx=164) AST (SGOT) (BEAKER) (test 110 U/L 5-34 enmr=893) ALT (SGPT) (BEAKER) (test 64 U/L 6-55 dsjo=100) EGFR (BEAKER) (test 46 mL/min/1.73 sq m ESTIMATED GFR IS NOT uufv=9792) ACCURATE CREATININE CLEARANCE IN PREDICTING GLOMERULAR FILTRATION RATE. ESTIMATED GFR IS NOT APPLICABLE FOR DIALYSIS PATIENTS. BASIC METABOLIC [id number] 07:27:00 Test Item Value Reference Range Comments SODIUM (BEAKER) (test 143 meq/L 136-145 yvwr=459) POTASSIUM (BEAKER) (test 4.2 meq/L 3.5-5.1 excz=281) CHLORIDE (BEAKER) (test 112 meq/L 98-107 gfbt=711) CO2 (BEAKER) (test 23 meq/L 22-29 wruu=056) BLOOD UREA NITROGEN 29 mg/dL 7-21 (BEAKER) (test iujh=126) CREATININE (BEAKER) (test 1.54 mg/dL 0.57-1.25 buqv=999) GLUCOSE RANDOM (BEAKER) 108 mg/dL 70-105 (test czym=945) CALCIUM (BEAKER) (test 9.1 mg/dL 8.4-10.2 tnsu=634) EGFR (BEAKER) (test 46 mL/min/1.73 sq m ESTIMATED GFR IS NOT olmq=0321) ACCURATE CREATININE CLEARANCE IN PREDICTING GLOMERULAR FILTRATION RATE. ESTIMATED GFR IS NOT APPLICABLE FOR DIALYSIS PATIENTS. RAD, CHEST, 1 VIEW, NON [id number] 20:41:00Reason for exam:->edemaShould this be performed at [...] concerning for fluid overload/heart failure. Signed:Cliff Salcido [facility] Verified Date/Time: 11/08/2017 20:41:24 Reading Location: [address] Reading Room Electronically signed by: CLIFF SALCIDO M.D. on 08:41 PMEOSINOPHIL SMEAR, [id number] 12:49:00 Test Item Value Reference Range Comments EOSINOPHIL SMEAR, URINE (BEAKER) (test No EOS seen No EOS seen uwyz=1077) CBC W/PLT COUNT & AUTO [id number] 10:40:00 Test Item Value Reference Range Comments WHITE BLOOD CELL COUNT (BEAKER) (test vxvu=467) 18.6 K/ L 3.5-10.5 RED BLOOD CELL COUNT (BEAKER) (test kspw=473) 2.21 M/ L 3.93-5.22 HEMOGLOBIN (BEAKER) (test axcj=440) 6.8 GM/DL 11.2-15.7 HEMATOCRIT (BEAKER) (test sjqq=398) 20.6 % 34.1-44.9 MEAN CORPUSCULAR VOLUME (BEAKER) (test ubft=090) 93.2 fL 79.4-94.8 MEAN CORPUSCULAR HEMOGLOBIN (BEAKER) (test 30.8 pg 25.6-32.2 rojk=025) MEAN CORPUSCULAR HEMOGLOBIN CONC (BEAKER) (test 33.0 GM/DL 32.2-35.5 ddoj=939) RED CELL DISTRIBUTION WIDTH (BEAKER) (test 25.5 % 11.7-14.4 zeyw=440) PLATELET COUNT (BEAKER) (test dkqa=147) 255 K/CU MM 150-450 MEAN PLATELET VOLUME (BEAKER) (test ardg=117) 10.6 fL 9.4-12.3 NUCLEATED RED BLOOD CELLS (BEAKER) (test 87 /100 WBC 0-0 iwkf=393) NEUTROPHILS RELATIVE PERCENT (BEAKER) (test 70 % hhdl=401) LYMPHOCYTES RELATIVE PERCENT (BEAKER) (test 14 % fbye=931) MONOCYTES RELATIVE PERCENT (BEAKER) (test 14 % cgiw=858) EOSINOPHILS RELATIVE PERCENT (BEAKER) (test 0 % rcta=258) BASOPHILS RELATIVE PERCENT (BEAKER) (test 0 % gdus=461) NEUTROPHILS ABSOLUTE COUNT (BEAKER) (test 12.98 K/ L 1.56-6.13 hrdh=118) LYMPHOCYTES ABSOLUTE COUNT (BEAKER) (test 2.67 K/ L 1.18-3.74 jewa=369) MONOCYTES ABSOLUTE COUNT (BEAKER) (test 2.65 K/ L 0.24-0.36 tmoq=022) EOSINOPHILS ABSOLUTE COUNT (BEAKER) (test 0.07 K/ L 0.04-0.36 knem=590) BASOPHILS ABSOLUTE COUNT (BEAKER) (test 0.05 K/ L 0.01-0.08 iquc=288) IMMATURE GRANULOCYTES-RELATIVE PERCENT (BEAKER) 1 % 0-1 (test thyq=1633) (MANUAL DIFFERENTIAL)2017-11-08 10:40:00 Test Item Value Reference Range Comments TOTAL COUNTED (BEAKER) (test zghw=6549) WBC MORPHOLOGY (BEAKER) (test bnzy=994) Normal LARGE PLT(BEAKER) (test szpr=7706) Present POLYCHROMATOPHILLIC RBCS(BEAKER) (test fiqz=778) 2+ moderate SICKLE CELLS (BEAKER) (test bdbn=447) 3+ many TARGET CELLS (BEAKER) (test mleg=881) 1+ few CT, [id number] 08:29:00FINAL REPORT HISTORY : Abdominal pain, unspecified [...] a small fluid collection. Signed : Dami Qu[place]ke[place] Verified Date/Time: 11/08/2017 08:29:54 Reading Location: [facility] Imaging Reading Room - [place] [id number] Electronically signed by: DAMI QUICK M.D. on11/08/2017 08:29 AMBASIC METABOLIC [id number] 08:14:00 Test Item Value Reference Range Comments SODIUM (BEAKER) (test 141 meq/L 136-145 pwpb=313) POTASSIUM (BEAKER) (test 4.4 meq/L 3.5-5.1 smtl=541) CHLORIDE (BEAKER) (test 111 meq/L 98-107 caum=082) CO2 (BEAKER) (test 17 meq/L 22-29 hvby=837) BLOOD UREA NITROGEN 37 mg/dL 7-21 (BEAKER) (test tyoz=990) CREATININE (BEAKER) (test 2.07 mg/dL 0.57-1.25 izxu=720) GLUCOSE RANDOM (BEAKER) 101 mg/dL 70-105 (test amzz=395) CALCIUM (BEAKER) (test 8.9 mg/dL 8.4-10.2 suak=238) EGFR (BEAKER) (test 32 mL/min/1.73 sq m ESTIMATED GFR IS NOT likt=8576) ACCURATE CREATININE CLEARANCE IN PREDICTING GLOMERULAR FILTRATION RATE. ESTIMATED GFR IS NOT APPLICABLE FOR DIALYSIS PATIENTS. COMPREHENSIVE METABOLIC [id number] 08:14:00 Test Item Value Reference Range Comments TOTAL PROTEIN (BEAKER) 8.6 gm/dL 6.0-8.3 (test bnvl=068) ALBUMIN (BEAKER) (test 3.4 g/dL 3.5-5.0 thvl=6516) ALKALINE PHOSPHATASE 155 U/L 40-150 (BEAKER) (test wemt=105) BILIRUBIN TOTAL (BEAKER) 1.7 mg/dL 0.2-1.2 (test oegv=901) SODIUM (BEAKER) (test 141 meq/L 136-145 lhik=819) POTASSIUM (BEAKER) (test 4.4 meq/L 3.5-5.1 seod=511) CHLORIDE (BEAKER) (test 111 meq/L 98-107 amsh=042) CO2 (BEAKER) (test 17 meq/L 22-29 fqaz=631) BLOOD UREA NITROGEN 37 mg/dL 7-21 (BEAKER) (test lbbz=076) CREATININE (BEAKER) (test 2.07 mg/dL 0.57-1.25 gwte=560) GLUCOSE RANDOM (BEAKER) 101 mg/dL 70-105 (test dsgy=416) CALCIUM (BEAKER) (test 8.9 mg/dL 8.4-10.2 dzcf=071) AST (SGOT) (BEAKER) (test 144 U/L 5-34 lxor=731) ALT (SGPT) (BEAKER) (test 70 U/L 6-55 edse=362) EGFR (BEAKER) (test 32 mL/min/1.73 sq m ESTIMATED GFR IS NOT lqde=5899) ACCURATE CREATININE CLEARANCE IN PREDICTING GLOMERULAR FILTRATION RATE. ESTIMATED GFR IS NOT APPLICABLE FOR DIALYSIS PATIENTS. PROTEIN, RANDOM [id number] 07:49:00 Test Item Value Reference Range Comments PROTEIN, URINE (BEAKER) (test wuoc=3760) 24 mg/dL 0-14 CREATININE, RANDOM [id number] 07:47:00 Test Item Value Reference Range Comments CREATININE URINE (BEAKER) (test wfre=323) 46.0 mg/dL Reference Range: No NormalsSODIUM, RANDOM [id number] 07:47:00 Test Item Value Reference Range Comments SODIUM URINE (BEAKER) (test mhgp=721) 65 meq/L Reference Range: No NormalsU/S, ABDOMINAL, [id number] 19:58:00Reason for exam:->GRAYSON, abdominal painShould this be [...] MDReport Verified Date/Time: 11/07/2017 19:58:17 Reading Location: [address] Consult Reading Room LACTIC ACID, VENOUS, WHOLE [id number] 16:11:00 Test Item Value Reference Range Comments LACTATE BLOOD VENOUS (2) 0.9 mmol/L 0.5-2.2 Specimen slightly hemolyzed (BEAKER) (test efrg=9881) Effective 12/22/2015: Units/Reference Range ChangeNew: 0.5-2.2 mmol/L Previous: 5 -20 mg/dLCBC W/PLT COUNT & AUTO [id number] 10:20:00 Test Item Value Reference Range Comments WHITE BLOOD CELL COUNT (BEAKER) (test vvcy=667) 23.2 K/ L 3.5-10.5 RED BLOOD CELL COUNT (BEAKER) (test rxoz=274) 1.84 M/ L 3.93-5.22 HEMOGLOBIN (BEAKER) (test pvue=933) 5.8 GM/DL 11.2-15.7 HEMATOCRIT (BEAKER) (test iktf=399) 17.3 % 34.1-44.9 MEAN CORPUSCULAR VOLUME (BEAKER) (test dcen=808) 94.0 fL 79.4-94.8 MEAN CORPUSCULAR HEMOGLOBIN (BEAKER) (test 31.5 pg 25.6-32.2 qqxw=461) MEAN CORPUSCULAR HEMOGLOBIN CONC (BEAKER) (test 33.5 GM/DL 32.2-35.5 zjev=498) RED CELL DISTRIBUTION WIDTH (BEAKER) (test 24.1 % 11.7-14.4 bcoo=438) PLATELET COUNT (BEAKER) (test engy=638) 249 K/CU MM 150-450 MEAN PLATELET VOLUME (BEAKER) (test kbwa=478) 10.8 fL 9.4-12.3 NUCLEATED RED BLOOD CELLS (BEAKER) (test 48 /100 WBC 0-0 ypyd=990) IMMATURE GRANULOCYTES-RELATIVE PERCENT (BEAKER) 2 % 0-1 (test qvvk=8554) (MANUAL DIFFERENTIAL)2017-11-07 10:20:00 Test Item Value Reference Range Comments NEUTROPHILS - REL (DIFF) (BEAKER) (test 68 % nuug=0434) LYMPHOCYTES - REL (DIFF) (BEAKER) (test 27 % coan=9266) MONOCYTES - REL (DIFF) (BEAKER) (test gnqq=3089) 5 % EOSINOPHILS - REL (DIFF) (BEAKER) (test 0 % hsdi=0949) BASOPHILS - REL (DIFF) (BEAKER) (test yntf=2633) 0 % NEUTROPHILS - ABS (DIFF) (BEAKER) (test 15.78 K/ L 1.80-8.00 kidy=4767) LYMPHOCYTES - ABS (DIFF) (BEAKER) (test 6.26 K/ L 1.48-4.50 fdra=1870) MONOCYTES - ABS (DIFF) (BEAKER) (test iukg=8761) 1.16 K/ L 0.00-1.30 EOSINOPHILS - ABS (DIFF) (BEAKER) (test 0.00 K/ L 0.00-0.50 inst=5012) BASOPHILS - ABS (DIFF) (BEAKER) (test rxhd=6457) 0.00 K/ L 0.00-0.20 TOTAL COUNTED (BEAKER) (test zfvp=9607) 100 MANUAL NRBC PER 100 CELLS (BEAKER) (test 51 /100 WBC 0-0 povr=8612) WBC MORPHOLOGY (BEAKER) (test qmyp=693) Normal PLT MORPHOLOGY (BEAKER) (test ymkf=377) Normal ANISOCYTOSIS (BEAKER) (test tiat=237) 3+ many POLYCHROMATOPHILLIC RBCS(BEAKER) (test xskp=745) 2+ moderate SICKLE CELLS (BEAKER) (test pcis=263) 3+ many TARGET CELLS (BEAKER) (test ieap=063) 1+ few BASIC METABOLIC [id number] 06:28:00 Test Item Value Reference Range Comments SODIUM (BEAKER) (test 132 meq/L 136-145 yysy=685) POTASSIUM (BEAKER) (test 4.4 meq/L 3.5-5.1 mxxq=395) CHLORIDE (BEAKER) (test 109 meq/L 98-107 bnks=474) CO2 (BEAKER) (test 20 meq/L 22-29 gjja=754) BLOOD UREA NITROGEN 39 mg/dL 7-21 (BEAKER) (test onoj=775) CREATININE (BEAKER) (test 2.20 mg/dL 0.57-1.25 rcan=787) GLUCOSE RANDOM (BEAKER) 123 mg/dL 70-105 (test lvju=981) CALCIUM (BEAKER) (test 8.7 mg/dL 8.4-10.2 wlig=936) EGFR (BEAKER) (test 30 mL/min/1.73 sq m ESTIMATED GFR IS NOT qteo=5722) ACCURATE CREATININE CLEARANCE IN PREDICTING GLOMERULAR FILTRATION RATE. ESTIMATED GFR IS NOT APPLICABLE FOR DIALYSIS PATIENTS. COMPREHENSIVE METABOLIC [id number] 18:37:00 Test Item Value Reference Range Comments TOTAL PROTEIN (BEAKER) 8.5 gm/dL 6.0-8.3 (test azte=243) ALBUMIN (BEAKER) (test 3.4 g/dL 3.5-5.0 qdbs=7826) ALKALINE PHOSPHATASE 166 U/L 40-150 (BEAKER) (test omnx=723) BILIRUBIN TOTAL (BEAKER) 4.0 mg/dL 0.2-1.2 (test cald=727) SODIUM (BEAKER) (test 142 meq/L 136-145 tpbn=902) POTASSIUM (BEAKER) (test 4.7 meq/L 3.5-5.1 ynpx=243) CHLORIDE (BEAKER) (test 110 meq/L 98-107 ltpr=269) CO2 (BEAKER) (test 22 meq/L 22-29 tqoh=738) BLOOD UREA NITROGEN 35 mg/dL 7-21 (BEAKER) (test ldgr=764) CREATININE (BEAKER) (test 1.97 mg/dL 0.57-1.25 fmai=756) GLUCOSE RANDOM (BEAKER) 119 mg/dL 70-105 (test rweh=025) CALCIUM (BEAKER) (test 8.5 mg/dL 8.4-10.2 vvxy=869) AST (SGOT) (BEAKER) (test 278 U/L 5-34 mtwf=432) ALT (SGPT) (BEAKER) (test 92 U/L 6-55 jcoc=020) EGFR (BEAKER) (test 34 mL/min/1.73 sq m ESTIMATED GFR IS NOT pdpc=5065) ACCURATE CREATININE CLEARANCE IN PREDICTING GLOMERULAR FILTRATION RATE. ESTIMATED GFR IS NOT APPLICABLE FOR DIALYSIS PATIENTS. Specimen slightly ictericCBC W/PLT COUNT & AUTO [id number] 14:59 :00 Test Item Value Reference Range Comments WHITE BLOOD CELL COUNT (BEAKER) (test lzrx=666) 24.3 K/ L 3.5-10.5 RED BLOOD CELL COUNT (BEAKER) (test czkm=250) 1.73 M/ L 3.93-5.22 HEMOGLOBIN (BEAKER) (test zbtq=464) 5.5 GM/DL 11.2-15.7 HEMATOCRIT (BEAKER) (test smri=233) 16.7 % 34.1-44.9 MEAN CORPUSCULAR VOLUME (BEAKER) (test dduw=234) 96.5 fL 79.4-94.8 MEAN CORPUSCULAR HEMOGLOBIN (BEAKER) (test 31.8 pg 25.6-32.2 ucqg=263) MEAN CORPUSCULAR HEMOGLOBIN CONC (BEAKER) (test 32.9 GM/DL 32.2-35.5 phlg=543) RED CELL DISTRIBUTION WIDTH (BEAKER) (test 25.8 % 11.7-14.4 oyoc=325) PLATELET COUNT (BEAKER) (test vdad=087) 259 K/CU MM 150-450 MEAN PLATELET VOLUME (BEAKER) (test omft=465) 11.1 fL 9.4-12.3 NUCLEATED RED BLOOD CELLS (BEAKER) (test 29 /100 WBC 0-0 alrs=672) IMMATURE GRANULOCYTES-RELATIVE PERCENT (BEAKER) 2 % 0-1 (test jyka=6997) (MANUAL DIFFERENTIAL)2017-11-06 14:59:00 Test Item Value Reference Range Comments NEUTROPHILS - REL (DIFF) (BEAKER) (test 65 % lbmp=4875) LYMPHOCYTES - REL (DIFF) (BEAKER) (test 26 % wvel=2627) MONOCYTES - REL (DIFF) (BEAKER) (test nnhn=2608) 8 % MYELOCYTES-REL (DIFF) (BEAKER) (test uiox=7376) 1 % 0-0 NEUTROPHILS - ABS (DIFF) (BEAKER) (test 15.80 K/ L 1.80-8.00 xjae=4728) LYMPHOCYTES - ABS (DIFF) (BEAKER) (test 6.32 K/ L 1.48-4.50 hpaj=9326) MONOCYTES - ABS (DIFF) (BEAKER) (test ttii=8779) 1.94 K/ L 0.00-1.30 MYELOCYTES-ABS (DIFF) (BEAKER) (test lroq=2723) 0.24 K/ L 0.00-0.00 TOTAL COUNTED (BEAKER) (test wuqp=7832) 100 MANUAL NRBC PER 100 CELLS (BEAKER) (test 34 /100 WBC 0-0 lrzb=7835) WBC MORPHOLOGY (BEAKER) (test tjxi=726) Normal PLT MORPHOLOGY (BEAKER) (test tslp=427) Normal ANISOCYTOSIS (BEAKER) (test neqi=147) 3+ many MATTHEWS-JOLLY BODIES (BEAKER) (test sqrh=810) Present POIKILOCYTES (BEAKER) (test kjeg=643) 1+ few POLYCHROMATOPHILLIC RBCS(BEAKER) (test gmne=130) 2+ moderate SICKLE CELLS (BEAKER) (test njiq=754) 3+ many BASIC METABOLIC [id number] 09:37:00 Test Item Value Reference Range Comments SODIUM (BEAKER) (test 139 meq/L 136-145 zigz=030) POTASSIUM (BEAKER) (test 4.5 meq/L 3.5-5.1 dytq=111) CHLORIDE (BEAKER) (test 107 meq/L 98-107 momr=503) CO2 (BEAKER) (test 19 meq/L 22-29 cktc=616) BLOOD UREA NITROGEN 27 mg/dL 7-21 (BEAKER) (test rbjn=755) CREATININE (BEAKER) (test 1.37 mg/dL 0.57-1.25 hiuk=728) GLUCOSE RANDOM (BEAKER) 124 mg/dL 70-105 (test zlde=385) CALCIUM (BEAKER) (test 8.2 mg/dL 8.4-10.2 fose=885) EGFR (BEAKER) (test 52 mL/min/1.73 sq m ESTIMATED GFR IS NOT svmo=0987) ACCURATE CREATININE CLEARANCE IN PREDICTING GLOMERULAR FILTRATION RATE. ESTIMATED GFR IS NOT APPLICABLE FOR DIALYSIS PATIENTS. Specimen slightly ictericURINALYSIS W/ [id number] 06:22:00 Test Item Value Reference Range Comments COLOR (BEAKER) (test ufzm=457) Brown CLARITY (BEAKER) (test luzl=954) Cloudy SPECIFIC GRAVITY UA (BEAKER) (test 1.015 1.001-1.035 dxlv=972) PH UA (BEAKER) (test yuno=246) 5.5 5.0-8.0 PROTEIN UA (BEAKER) (test sxfj=769) 100 mg/dL Negative GLUCOSE UA (BEAKER) (test zfrv=370) Negative Negative KETONES UA (BEAKER) (test xbof=547) Negative Negative BILIRUBIN UA (BEAKER) (test kkdn=598) Positive Negative BLOOD UA (BEAKER) (test eban=898) Large Negative NITRITE UA (BEAKER) (test qgjk=365) Negative Negative LEUKOCYTE ESTERASE UA (BEAKER) (test Trace Negative dbps=391) UROBILINOGEN UA (BEAKER) (test rvmh=073) 4.0 mg/dL 0.2-1.0 RBC UA (BEAKER) (test rhby=084) 0 /HPF WBC UA (BEAKER) (test nnae=978) 27 /HPF MUCUS (BEAKER) (test plvk=1081) Few SQUAMOUS EPITHELIAL (BEAKER) (test 11 /HPF seyy=112) SOURCE(BEAKER) (test jpjk=7366) Urine, Clean Catch BASIC METABOLIC [id number] 10:56:00 Test Item Value Reference Range Comments SODIUM (BEAKER) (test 139 meq/L 136-145 bnwn=206) POTASSIUM (BEAKER) (test 4.2 meq/L 3.5-5.1 hngn=831) CHLORIDE (BEAKER) (test 104 meq/L 98-107 zpxx=251) CO2 (BEAKER) (test 23 meq/L 22-29 ejgw=386) BLOOD UREA NITROGEN 9 mg/dL 7-21 (BEAKER) (test iesu=726) CREATININE (BEAKER) (test 0.66 mg/dL 0.57-1.25 xxel=534) GLUCOSE RANDOM (BEAKER) 109 mg/dL 70-105 (test ycbw=649) CALCIUM (BEAKER) (test 8.6 mg/dL 8.4-10.2 rifz=838) EGFR (BEAKER) (test 121 mL/min/1.73 sq m ESTIMATED GFR IS NOT cykf=7465) ACCURATE CREATININE CLEARANCE IN PREDICTING GLOMERULAR FILTRATION RATE. ESTIMATED GFR IS NOT APPLICABLE FOR DIALYSIS PATIENTS. Specimen slightly ictericCBC W/PLT COUNT & AUTO [id number] 09:17 :00 Test Item Value Reference Range Comments WHITE BLOOD CELL COUNT (BEAKER) (test mirx=169) 18.2 K/ L 3.5-10.5 RED BLOOD CELL COUNT (BEAKER) (test iqsy=883) 2.05 M/ L 3.93-5.22 HEMOGLOBIN (BEAKER) (test zzjl=272) 6.4 GM/DL 11.2-15.7 HEMATOCRIT (BEAKER) (test qfoc=065) 19.9 % 34.1-44.9 MEAN CORPUSCULAR VOLUME (BEAKER) (test gfun=055) 97.1 fL 79.4-94.8 MEAN CORPUSCULAR HEMOGLOBIN (BEAKER) (test 31.2 pg 25.6-32.2 ihtn=022) MEAN CORPUSCULAR HEMOGLOBIN CONC (BEAKER) (test 32.2 GM/DL 32.2-35.5 fwcm=119) RED CELL DISTRIBUTION WIDTH (BEAKER) (test 25.4 % 11.7-14.4 hxrt=850) PLATELET COUNT (BEAKER) (test ttlg=584) 227 K/CU MM 150-450 MEAN PLATELET VOLUME (BEAKER) (test hlyk=830) 10.4 fL 9.4-12.3 NUCLEATED RED BLOOD CELLS (BEAKER) (test 18 /100 WBC 0-0 dmkq=881) NEUTROPHILS RELATIVE PERCENT (BEAKER) (test 57 % vvmm=796) LYMPHOCYTES RELATIVE PERCENT (BEAKER) (test 24 % frfj=226) MONOCYTES RELATIVE PERCENT (BEAKER) (test 15 % pyhd=890) EOSINOPHILS RELATIVE PERCENT (BEAKER) (test 3 % pqdi=542) BASOPHILS RELATIVE PERCENT (BEAKER) (test 0 % iyvp=033) NEUTROPHILS ABSOLUTE COUNT (BEAKER) (test 10.46 K/ L 1.56-6.13 ynwm=617) LYMPHOCYTES ABSOLUTE COUNT (BEAKER) (test 4.31 K/ L 1.18-3.74 ajct=980) MONOCYTES ABSOLUTE COUNT (BEAKER) (test 2.72 K/ L 0.24-0.36 qeqi=788) EOSINOPHILS ABSOLUTE COUNT (BEAKER) (test 0.45 K/ L 0.04-0.36 fpvm=575) BASOPHILS ABSOLUTE COUNT (BEAKER) (test 0.07 K/ L 0.01-0.08 hezt=186) IMMATURE GRANULOCYTES-RELATIVE PERCENT (BEAKER) 1 % 0-1 (test fhsi=6753) (MANUAL DIFFERENTIAL)2017-11-05 09:17:00 Test Item Value Reference Range Comments TOTAL COUNTED (BEAKER) (test lgqn=3764) WBC MORPHOLOGY (BEAKER) (test xbxs=619) Normal PLT MORPHOLOGY (BEAKER) (test uavc=679) Normal ANISOCYTOSIS (BEAKER) (test fdbg=444) 2+ moderate POLYCHROMATOPHILLIC RBCS(BEAKER) (test eikk=021) 2+ moderate SICKLE CELLS (BEAKER) (test sneb=669) 2+ moderate TARGET CELLS (BEAKER) (test qpgh=578) 2+ moderate CREATINE KINASE (CK), TOTAL AND [id number] 22:01:00 Test Item Value Reference Range Comments CREATINE KINASE TOTAL (BEAKER) (test 10 U/L 29-200 lomr=044) CREATINE KINASE-MB (BEAKER) (test 0.1 ng/mL 0.0-6.6 wuzh=408) CREATINE KINASE-MB INDEX (BEAKER) (test 1.0 % Unable to Calculate vlhx=153) CK-MB Reference Range:<6.7 Normal6.7-10.0 Borderline>10.0 AbnormalTROPONIN [id number] 21:16:00 Test Item Value Reference Range Comments TROPONIN I (BEAKER) (test fzjv=529) < ng/mL 0.00-0.03 Troponin I (TnI) levels [...] and persistent tachyarrhythmia.CBC W/PLT COUNT & AUTO [id number] 06:49:00 Test Item Value Reference Range Comments WHITE BLOOD CELL COUNT (BEAKER) (test wczk=303) 13.3 K/ L 3.5-10.5 RED BLOOD CELL COUNT (BEAKER) (test ybbv=654) 2.18 M/ L 3.93-5.22 HEMOGLOBIN (BEAKER) (test wyjp=702) 6.8 GM/DL 11.2-15.7 HEMATOCRIT (BEAKER) (test pawo=555) 21.5 % 34.1-44.9 MEAN CORPUSCULAR VOLUME (BEAKER) (test lasl=612) 98.6 fL 79.4-94.8 MEAN CORPUSCULAR HEMOGLOBIN (BEAKER) (test 31.2 pg 25.6-32.2 tsje=367) MEAN CORPUSCULAR HEMOGLOBIN CONC (BEAKER) (test 31.6 GM/DL 32.2-35.5 njvw=750) RED CELL DISTRIBUTION WIDTH (BEAKER) (test 21.1 % 11.7-14.4 lwne=635) PLATELET COUNT (BEAKER) (test jiez=186) 192 K/CU MM 150-450 MEAN PLATELET VOLUME (BEAKER) (test apsx=502) 11.4 fL 9.4-12.3 NUCLEATED RED BLOOD CELLS (BEAKER) (test 1 /100 WBC 0-0 ulnd=590) NEUTROPHILS RELATIVE PERCENT (BEAKER) (test 51 % cigx=732) LYMPHOCYTES RELATIVE PERCENT (BEAKER) (test 30 % ykul=652) MONOCYTES RELATIVE PERCENT (BEAKER) (test 16 % xoxq=934) EOSINOPHILS RELATIVE PERCENT (BEAKER) (test 2 % ukxz=482) BASOPHILS RELATIVE PERCENT (BEAKER) (test 0 % qyyb=222) NEUTROPHILS ABSOLUTE COUNT (BEAKER) (test 6.84 K/ L 1.56-6.13 ikuy=377) LYMPHOCYTES ABSOLUTE COUNT (BEAKER) (test 4.06 K/ L 1.18-3.74 adcr=929) MONOCYTES ABSOLUTE COUNT (BEAKER) (test 2.12 K/ L 0.24-0.36 bvcw=472) EOSINOPHILS ABSOLUTE COUNT (BEAKER) (test 0.26 K/ L 0.04-0.36 jisv=751) BASOPHILS ABSOLUTE COUNT (BEAKER) (test 0.02 K/ L 0.01-0.08 zwku=522) IMMATURE GRANULOCYTES-RELATIVE PERCENT (BEAKER) 0 % 0-1 (test fjzi=2787) BASIC METABOLIC [id number] 07:06:00 Test Item Value Reference Range Comments SODIUM (BEAKER) (test 138 meq/L 136-145 bfzp=211) POTASSIUM (BEAKER) (test 4.2 meq/L 3.5-5.1 xfnp=548) CHLORIDE (BEAKER) (test 103 meq/L 98-107 gxns=121) CO2 (BEAKER) (test 28 meq/L 22-29 qxsk=462) BLOOD UREA NITROGEN 11 mg/dL 7-21 (BEAKER) (test cwkm=540) CREATININE (BEAKER) (test 0.55 mg/dL 0.57-1.25 ytzo=944) GLUCOSE RANDOM (BEAKER) 95 mg/dL 70-105 (test fyki=925) CALCIUM (BEAKER) (test 9.5 mg/dL 8.4-10.2 kypf=201) EGFR (BEAKER) (test 150 mL/min/1.73 sq m ESTIMATED GFR IS NOT tjgw=7233) ACCURATE CREATININE CLEARANCE IN PREDICTING GLOMERULAR FILTRATION RATE. ESTIMATED GFR IS NOT APPLICABLE FOR DIALYSIS PATIENTS. CBC W/PLT COUNT & AUTO [id number] 06:48:00 Test Item Value Reference Range Comments WHITE BLOOD CELL COUNT (BEAKER) (test tyoy=254) 12.8 K/ L 3.5-10.5 RED BLOOD CELL COUNT (BEAKER) (test krhl=679) 2.22 M/ L 3.93-5.22 HEMOGLOBIN (BEAKER) (test kjwp=016) 7.2 GM/DL 11.2-15.7 HEMATOCRIT (BEAKER) (test kxpy=420) 21.9 % 34.1-44.9 MEAN CORPUSCULAR VOLUME (BEAKER) (test wxke=543) 98.6 fL 79.4-94.8 MEAN CORPUSCULAR HEMOGLOBIN (BEAKER) (test 32.4 pg 25.6-32.2 jszx=234) MEAN CORPUSCULAR HEMOGLOBIN CONC (BEAKER) (test 32.9 GM/DL 32.2-35.5 flsl=090) RED CELL DISTRIBUTION WIDTH (BEAKER) (test 21.2 % 11.7-14.4 llta=379) PLATELET COUNT (BEAKER) (test inpk=027) 176 K/CU MM 150-450 MEAN PLATELET VOLUME (BEAKER) (test wfok=123) 11.2 fL 9.4-12.3 NUCLEATED RED BLOOD CELLS (BEAKER) (test 5 /100 WBC 0-0 lpji=756) NEUTROPHILS RELATIVE PERCENT (BEAKER) (test 49 % sbfi=959) LYMPHOCYTES RELATIVE PERCENT (BEAKER) (test 31 % odlx=128) MONOCYTES RELATIVE PERCENT (BEAKER) (test 19 % ndfk=128) EOSINOPHILS RELATIVE PERCENT (BEAKER) (test 2 % ldok=498) BASOPHILS RELATIVE PERCENT (BEAKER) (test 0 % bfps=649) NEUTROPHILS ABSOLUTE COUNT (BEAKER) (test 6.23 K/ L 1.56-6.13 slyo=584) LYMPHOCYTES ABSOLUTE COUNT (BEAKER) (test 3.90 K/ L 1.18-3.74 ivgp=289) MONOCYTES ABSOLUTE COUNT (BEAKER) (test 2.37 K/ L 0.24-0.36 fhfk=499) EOSINOPHILS ABSOLUTE COUNT (BEAKER) (test 0.24 K/ L 0.04-0.36 qvun=084) BASOPHILS ABSOLUTE COUNT (BEAKER) (test 0.01 K/ L 0.01-0.08 nybn=073) IMMATURE GRANULOCYTES-RELATIVE PERCENT (BEAKER) 0 % 0-1 (test wnjb=5768) (MANUAL DIFFERENTIAL)2017-06-03 06:48:00 Test Item Value Reference Range Comments TOTAL COUNTED (BEAKER) (test pihp=0038) WBC MORPHOLOGY (BEAKER) (test mkwz=013) Normal PLT MORPHOLOGY (BEAKER) (test isro=985) Normal ANISOCYTOSIS (BEAKER) (test tmog=955) 3+ many MATTHEWS-JOLLY BODIES (BEAKER) (test lajh=652) Present MACROCYTES (BEAKER) (test fdve=893) 3+ many SICKLE CELLS (BEAKER) (test svaz=222) 1+ few TARGET CELLS (BEAKER) (test pwwk=458) 1+ few BASIC METABOLIC [id number] 07:33:00 Test Item Value Reference Range Comments SODIUM (BEAKER) (test 138 meq/L 136-145 chcf=831) POTASSIUM (BEAKER) (test 4.5 meq/L 3.5-5.1 vosn=535) CHLORIDE (BEAKER) (test 102 meq/L 98-107 gxdo=458) CO2 (BEAKER) (test 27 meq/L 22-29 bibn=961) BLOOD UREA NITROGEN 11 mg/dL 7-21 (BEAKER) (test kzhy=934) CREATININE (BEAKER) (test 0.55 mg/dL 0.57-1.25 xlbq=151) GLUCOSE RANDOM (BEAKER) 85 mg/dL 70-105 (test pzib=825) CALCIUM (BEAKER) (test 9.5 mg/dL 8.4-10.2 kxen=226) EGFR (BEAKER) (test 150 mL/min/1.73 sq m ESTIMATED GFR IS NOT icxj=8424) ACCURATE CREATININE CLEARANCE IN PREDICTING GLOMERULAR FILTRATION RATE. ESTIMATED GFR IS NOT APPLICABLE FOR DIALYSIS PATIENTS. CBC W/PLT COUNT & AUTO [id number] 07:13:00 Test Item Value Reference Range Comments WHITE BLOOD CELL COUNT (BEAKER) (test flqr=577) 14.2 K/ L 3.5-10.5 RED BLOOD CELL COUNT (BEAKER) (test nxbg=970) 2.39 M/ L 3.93-5.22 HEMOGLOBIN (BEAKER) (test iwii=628) 7.6 GM/DL 11.2-15.7 HEMATOCRIT (BEAKER) (test sfbo=039) 23.5 % 34.1-44.9 MEAN CORPUSCULAR VOLUME (BEAKER) (test joae=965) 98.3 fL 79.4-94.8 MEAN CORPUSCULAR HEMOGLOBIN (BEAKER) (test 31.8 pg 25.6-32.2 sjvo=301) MEAN CORPUSCULAR HEMOGLOBIN CONC (BEAKER) (test 32.3 GM/DL 32.2-35.5 jymp=779) RED CELL DISTRIBUTION WIDTH (BEAKER) (test 21.1 % 11.7-14.4 opmz=662) PLATELET COUNT (BEAKER) (test lamu=645) 173 K/CU MM 150-450 MEAN PLATELET VOLUME (BEAKER) (test zbfq=030) 11.7 fL 9.4-12.3 NUCLEATED RED BLOOD CELLS (BEAKER) (test 11 /100 WBC 0-0 ebcc=132) NEUTROPHILS RELATIVE PERCENT (BEAKER) (test 53 % aqjh=733) LYMPHOCYTES RELATIVE PERCENT (BEAKER) (test 27 % wjzx=797) MONOCYTES RELATIVE PERCENT (BEAKER) (test 18 % oobg=443) EOSINOPHILS RELATIVE PERCENT (BEAKER) (test 1 % bmav=818) BASOPHILS RELATIVE PERCENT (BEAKER) (test 0 % vcja=827) NEUTROPHILS ABSOLUTE COUNT (BEAKER) (test 7.56 K/ L 1.56-6.13 kqtc=485) LYMPHOCYTES ABSOLUTE COUNT (BEAKER) (test 3.89 K/ L 1.18-3.74 ispr=152) MONOCYTES ABSOLUTE COUNT (BEAKER) (test 2.52 K/ L 0.24-0.36 gfqw=943) EOSINOPHILS ABSOLUTE COUNT (BEAKER) (test 0.20 K/ L 0.04-0.36 fcsa=861) BASOPHILS ABSOLUTE COUNT (BEAKER) (test 0.02 K/ L 0.01-0.08 wxpl=049) IMMATURE GRANULOCYTES-RELATIVE PERCENT (BEAKER) 0 % 0-1 (test xbil=8413) CBC W/PLT COUNT & AUTO [id number] 16:45:00 Test Item Value Reference Range Comments WHITE BLOOD CELL COUNT (BEAKER) (test qloc=103) 15.1 K/ L 3.5-10.5 RED BLOOD CELL COUNT (BEAKER) (test zsey=068) 2.36 M/ L 3.93-5.22 HEMOGLOBIN (BEAKER) (test wjxh=144) 7.5 GM/DL 11.2-15.7 HEMATOCRIT (BEAKER) (test sgwd=607) 23.0 % 34.1-44.9 MEAN CORPUSCULAR VOLUME (BEAKER) (test vbfk=712) 97.5 fL 79.4-94.8 MEAN CORPUSCULAR HEMOGLOBIN (BEAKER) (test 31.8 pg 25.6-32.2 pvuw=582) MEAN CORPUSCULAR HEMOGLOBIN CONC (BEAKER) (test 32.6 GM/DL 32.2-35.5 zide=185) RED CELL DISTRIBUTION WIDTH (BEAKER) (test 20.7 % 11.7-14.4 vxzk=611) PLATELET COUNT (BEAKER) (test rrvq=299) 179 K/CU MM 150-450 MEAN PLATELET VOLUME (BEAKER) (test ijlf=959) 11.9 fL 9.4-12.3 NUCLEATED RED BLOOD CELLS (BEAKER) (test 12 /100 WBC 0-0 xcuo=835) NEUTROPHILS RELATIVE PERCENT (BEAKER) (test 53 % rfnt=592) LYMPHOCYTES RELATIVE PERCENT (BEAKER) (test 27 % vhjq=477) MONOCYTES RELATIVE PERCENT (BEAKER) (test 18 % gxsz=509) EOSINOPHILS RELATIVE PERCENT (BEAKER) (test 2 % mais=132) BASOPHILS RELATIVE PERCENT (BEAKER) (test 0 % xgyf=707) NEUTROPHILS ABSOLUTE COUNT (BEAKER) (test 8.03 K/ L 1.56-6.13 zxgq=998) LYMPHOCYTES ABSOLUTE COUNT (BEAKER) (test 3.99 K/ L 1.18-3.74 hpsn=579) MONOCYTES ABSOLUTE COUNT (BEAKER) (test 2.65 K/ L 0.24-0.36 jxlc=275) EOSINOPHILS ABSOLUTE COUNT (BEAKER) (test 0.31 K/ L 0.04-0.36 ttgj=584) BASOPHILS ABSOLUTE COUNT (BEAKER) (test 0.02 K/ L 0.01-0.08 mynq=325) IMMATURE GRANULOCYTES-RELATIVE PERCENT (BEAKER) 0 % 0-1 (test pued=5598) BASIC METABOLIC [id number] 06:17:00 Test Item Value Reference Range Comments SODIUM (BEAKER) (test 138 meq/L 136-145 spxn=799) POTASSIUM (BEAKER) (test 4.1 meq/L 3.5-5.1 ijln=135) CHLORIDE (BEAKER) (test 100 meq/L 98-107 srgz=083) CO2 (BEAKER) (test 30 meq/L 22-29 ecmh=531) BLOOD UREA NITROGEN 11 mg/dL 7-21 (BEAKER) (test udmg=629) CREATININE (BEAKER) (test 0.58 mg/dL 0.57-1.25 hmas=496) GLUCOSE RANDOM (BEAKER) 90 mg/dL 70-105 (test hshy=851) CALCIUM (BEAKER) (test 9.4 mg/dL 8.4-10.2 rdwp=065) EGFR (BEAKER) (test 141 mL/min/1.73 sq m ESTIMATED GFR IS NOT gjah=0944) ACCURATE CREATININE CLEARANCE IN PREDICTING GLOMERULAR FILTRATION RATE. ESTIMATED GFR IS NOT APPLICABLE FOR DIALYSIS PATIENTS. CBC W/PLT COUNT & AUTO [id number] 13:41:00 Test Item Value Reference Range Comments WHITE BLOOD CELL COUNT (BEAKER) (test jaau=898) 13.9 K/ L 3.5-10.5 RED BLOOD CELL COUNT (BEAKER) (test oigk=677) 2.38 M/ L 3.93-5.22 HEMOGLOBIN (BEAKER) (test ffxe=731) 7.5 GM/DL 11.2-15.7 HEMATOCRIT (BEAKER) (test jmnv=639) 23.2 % 34.1-44.9 MEAN CORPUSCULAR VOLUME (BEAKER) (test ueaf=716) 97.5 fL 79.4-94.8 MEAN CORPUSCULAR HEMOGLOBIN (BEAKER) (test 31.5 pg 25.6-32.2 oxya=043) MEAN CORPUSCULAR HEMOGLOBIN CONC (BEAKER) (test 32.3 GM/DL 32.2-35.5 vetq=571) RED CELL DISTRIBUTION WIDTH (BEAKER) (test 20.2 % 11.7-14.4 dacy=001) PLATELET COUNT (BEAKER) (test ptwo=164) 171 K/CU MM 150-450 MEAN PLATELET VOLUME (BEAKER) (test wdip=336) 12.0 fL 9.4-12.3 NUCLEATED RED BLOOD CELLS (BEAKER) (test 8 /100 WBC 0-0 suma=350) NEUTROPHILS RELATIVE PERCENT (BEAKER) (test 57 % ancu=747) LYMPHOCYTES RELATIVE PERCENT (BEAKER) (test 23 % jjyv=416) MONOCYTES RELATIVE PERCENT (BEAKER) (test 18 % ulbz=615) EOSINOPHILS RELATIVE PERCENT (BEAKER) (test 2 % tbdp=769) BASOPHILS RELATIVE PERCENT (BEAKER) (test 0 % diru=339) NEUTROPHILS ABSOLUTE COUNT (BEAKER) (test 7.89 K/ L 1.56-6.13 dtui=794) LYMPHOCYTES ABSOLUTE COUNT (BEAKER) (test 3.13 K/ L 1.18-3.74 zatm=264) MONOCYTES ABSOLUTE COUNT (BEAKER) (test 2.52 K/ L 0.24-0.36 ifgb=872) EOSINOPHILS ABSOLUTE COUNT (BEAKER) (test 0.25 K/ L 0.04-0.36 iyln=352) BASOPHILS ABSOLUTE COUNT (BEAKER) (test 0.02 K/ L 0.01-0.08 nhqi=850) IMMATURE GRANULOCYTES-RELATIVE PERCENT (BEAKER) 1 % 0-1 (test lsdn=3738) (MANUAL DIFFERENTIAL)2017-05-31 13:41:00 Test Item Value Reference Range Comments TOTAL COUNTED (BEAKER) (test wzul=8759) WBC MORPHOLOGY (BEAKER) (test ycoz=926) Normal PLT MORPHOLOGY (BEAKER) (test yxtj=882) Normal POLYCHROMATOPHILLIC RBCS(BEAKER) (test llei=322) 2+ moderate SICKLE CELLS (BEAKER) (test wwfd=516) 1+ few TARGET CELLS (BEAKER) (test pcco=672) 2+ moderate URINE [id number] 12:19:00 Test Item Value Reference Range Comments CULTURE (BEAKER) (test 20-29,000 col/mL skin valentino codv=4201) BASIC METABOLIC [id number] 07:23:00 Test Item Value Reference Range Comments SODIUM (BEAKER) (test 136 meq/L 136-145 ldgi=539) POTASSIUM (BEAKER) (test 3.9 meq/L 3.5-5.1 zekg=505) CHLORIDE (BEAKER) (test 97 meq/L 98-107 xnix=743) CO2 (BEAKER) (test 30 meq/L 22-29 kgzf=928) BLOOD UREA NITROGEN 9 mg/dL 7-21 (BEAKER) (test fwjh=447) CREATININE (BEAKER) (test 0.56 mg/dL 0.57-1.25 qlnu=649) GLUCOSE RANDOM (BEAKER) 100 mg/dL 70-105 (test lpus=971) CALCIUM (BEAKER) (test 9.5 mg/dL 8.4-10.2 znuh=350) EGFR (BEAKER) (test 147 mL/min/1.73 sq m ESTIMATED GFR IS NOT uhcu=1944) ACCURATE CREATININE CLEARANCE IN PREDICTING GLOMERULAR FILTRATION RATE. ESTIMATED GFR IS NOT APPLICABLE FOR DIALYSIS PATIENTS. U/S, ABDOMINAL, [id number] 23:52:00Reason for exam:->painShould this be performed at [...] MDReport Verified Date/Time: 05/30/2017 23:52:25 Reading Location: [address] Consult Reading Room 11:52 PMCBC W/PLT COUNT & AUTO [id number] 17:30:00 Test Item Value Reference Range Comments WHITE BLOOD CELL COUNT (BEAKER) (test tqyz=008) 14.0 K/ L 3.5-10.5 RED BLOOD CELL COUNT (BEAKER) (test jrhi=270) 2.41 M/ L 3.93-5.22 HEMOGLOBIN (BEAKER) (test jsik=140) 7.7 GM/DL 11.2-15.7 HEMATOCRIT (BEAKER) (test zzpd=963) 23.3 % 34.1-44.9 MEAN CORPUSCULAR VOLUME (BEAKER) (test ofpp=374) 96.7 fL 79.4-94.8 MEAN CORPUSCULAR HEMOGLOBIN (BEAKER) (test 32.0 pg 25.6-32.2 eoda=946) MEAN CORPUSCULAR HEMOGLOBIN CONC (BEAKER) (test 33.0 GM/DL 32.2-35.5 lknv=813) RED CELL DISTRIBUTION WIDTH (BEAKER) (test 20.0 % 11.7-14.4 szbb=134) PLATELET COUNT (BEAKER) (test oxrs=442) 163 K/CU MM 150-450 MEAN PLATELET VOLUME (BEAKER) (test jvog=470) 11.7 fL 9.4-12.3 NUCLEATED RED BLOOD CELLS (BEAKER) (test 4 /100 WBC 0-0 jcjl=602) NEUTROPHILS RELATIVE PERCENT (BEAKER) (test 47 % bmys=937) LYMPHOCYTES RELATIVE PERCENT (BEAKER) (test 32 % uvqt=320) MONOCYTES RELATIVE PERCENT (BEAKER) (test 18 % qkwl=259) EOSINOPHILS RELATIVE PERCENT (BEAKER) (test 3 % uldl=058) BASOPHILS RELATIVE PERCENT (BEAKER) (test 0 % nogk=957) NEUTROPHILS ABSOLUTE COUNT (BEAKER) (test 6.58 K/ L 1.56-6.13 tivt=361) LYMPHOCYTES ABSOLUTE COUNT (BEAKER) (test 4.40 K/ L 1.18-3.74 jkkl=752) MONOCYTES ABSOLUTE COUNT (BEAKER) (test 2.49 K/ L 0.24-0.36 egan=978) EOSINOPHILS ABSOLUTE COUNT (BEAKER) (test 0.44 K/ L 0.04-0.36 orwp=195) BASOPHILS ABSOLUTE COUNT (BEAKER) (test 0.02 K/ L 0.01-0.08 zqhk=797) IMMATURE GRANULOCYTES-RELATIVE PERCENT (BEAKER) 0 % 0-1 (test ciwx=8306) BASIC METABOLIC [id number] 06:33:00 Test Item Value Reference Range Comments SODIUM (BEAKER) (test 139 meq/L 136-145 lgfx=683) POTASSIUM (BEAKER) (test 4.0 meq/L 3.5-5.1 gizz=300) CHLORIDE (BEAKER) (test 102 meq/L 98-107 pica=411) CO2 (BEAKER) (test 28 meq/L 22-29 dvql=603) BLOOD UREA NITROGEN 7 mg/dL 7-21 (BEAKER) (test xtrk=676) CREATININE (BEAKER) (test 0.54 mg/dL 0.57-1.25 qica=107) GLUCOSE RANDOM (BEAKER) 95 mg/dL 70-105 (test ipso=161) CALCIUM (BEAKER) (test 9.6 mg/dL 8.4-10.2 eenq=769) EGFR (BEAKER) (test 153 mL/min/1.73 sq m ESTIMATED GFR IS NOT amda=7293) ACCURATE CREATININE CLEARANCE IN PREDICTING GLOMERULAR FILTRATION RATE. ESTIMATED GFR IS NOT APPLICABLE FOR DIALYSIS PATIENTS. CBC W/PLT COUNT & AUTO [id number] 13:41:00 Test Item Value Reference Range Comments WHITE BLOOD CELL COUNT (BEAKER) (test nuea=341) 14.6 K/ L 3.5-10.5 RED BLOOD CELL COUNT (BEAKER) (test iicm=594) 1.85 M/ L 3.93-5.22 HEMOGLOBIN (BEAKER) (test gzno=767) 5.9 GM/DL 11.2-15.7 HEMATOCRIT (BEAKER) (test blev=476) 18.5 % 34.1-44.9 MEAN CORPUSCULAR VOLUME (BEAKER) (test tjfo=282) 100.0 fL 79.4-94.8 MEAN CORPUSCULAR HEMOGLOBIN (BEAKER) (test 31.9 pg 25.6-32.2 lzvf=430) MEAN CORPUSCULAR HEMOGLOBIN CONC (BEAKER) (test 31.9 GM/DL 32.2-35.5 xdog=106) RED CELL DISTRIBUTION WIDTH (BEAKER) (test 21.0 % 11.7-14.4 fbia=652) PLATELET COUNT (BEAKER) (test arvz=969) 169 K/CU MM 150-450 MEAN PLATELET VOLUME (BEAKER) (test dlno=881) 12.1 fL 9.4-12.3 NUCLEATED RED BLOOD CELLS (BEAKER) (test 3 /100 WBC 0-0 tjac=122) NEUTROPHILS RELATIVE PERCENT (BEAKER) (test 52 % wpdm=990) LYMPHOCYTES RELATIVE PERCENT (BEAKER) (test 28 % fiur=660) MONOCYTES RELATIVE PERCENT (BEAKER) (test 16 % wtre=241) EOSINOPHILS RELATIVE PERCENT (BEAKER) (test 4 % hoqr=921) BASOPHILS RELATIVE PERCENT (BEAKER) (test 0 % inqd=498) NEUTROPHILS ABSOLUTE COUNT (BEAKER) (test 7.50 K/ L 1.56-6.13 mxyo=686) LYMPHOCYTES ABSOLUTE COUNT (BEAKER) (test 4.08 K/ L 1.18-3.74 page=053) MONOCYTES ABSOLUTE COUNT (BEAKER) (test 2.34 K/ L 0.24-0.36 binn=338) EOSINOPHILS ABSOLUTE COUNT (BEAKER) (test 0.56 K/ L 0.04-0.36 tqsw=352) BASOPHILS ABSOLUTE COUNT (BEAKER) (test 0.02 K/ L 0.01-0.08 gmyt=975) IMMATURE GRANULOCYTES-RELATIVE PERCENT (BEAKER) 0 % 0-1 (test laci=4670) (MANUAL DIFFERENTIAL)2017-05-29 13:41:00 Test Item Value Reference Range Comments TOTAL COUNTED (BEAKER) (test obqj=0061) WBC MORPHOLOGY (BEAKER) (test qacy=568) Normal PLT MORPHOLOGY (BEAKER) (test qspt=367) Normal POLYCHROMATOPHILLIC RBCS(BEAKER) (test judq=809) 2+ moderate SICKLE CELLS (BEAKER) (test ognb=785) 1+ few TARGET CELLS (BEAKER) (test pewm=155) 2+ moderate BASIC METABOLIC [id number] 07:38:00 Test Item Value Reference Range Comments SODIUM (BEAKER) (test 140 meq/L 136-145 mhnp=617) POTASSIUM (BEAKER) (test 3.9 meq/L 3.5-5.1 fqyf=267) CHLORIDE (BEAKER) (test 104 meq/L 98-107 amgz=237) CO2 (BEAKER) (test 28 meq/L 22-29 rlaw=954) BLOOD UREA NITROGEN 8 mg/dL 7-21 (BEAKER) (test ykgt=804) CREATININE (BEAKER) (test 0.56 mg/dL 0.57-1.25 gxom=402) GLUCOSE RANDOM (BEAKER) 129 mg/dL 70-105 (test svqh=409) CALCIUM (BEAKER) (test 9.2 mg/dL 8.4-10.2 cnmg=256) EGFR (BEAKER) (test 147 mL/min/1.73 sq m ESTIMATED GFR IS NOT rnbz=4646) ACCURATE CREATININE CLEARANCE IN PREDICTING GLOMERULAR FILTRATION RATE. ESTIMATED GFR IS NOT APPLICABLE FOR DIALYSIS PATIENTS. CBC W/PLT COUNT & AUTO [id number] 15:40:00 Test Item Value Reference Range Comments WHITE BLOOD CELL COUNT (BEAKER) (test svnp=301) 15.5 K/ L 3.5-10.5 RED BLOOD CELL COUNT (BEAKER) (test trzf=079) 2.13 M/ L 3.93-5.22 HEMOGLOBIN (BEAKER) (test uydz=600) 6.8 GM/DL 11.2-15.7 HEMATOCRIT (BEAKER) (test lqvl=066) 21.1 % 34.1-44.9 MEAN CORPUSCULAR VOLUME (BEAKER) (test ucov=729) 99.1 fL 79.4-94.8 MEAN CORPUSCULAR HEMOGLOBIN (BEAKER) (test 31.9 pg 25.6-32.2 vqyq=601) MEAN CORPUSCULAR HEMOGLOBIN CONC (BEAKER) (test 32.2 GM/DL 32.2-35.5 hdpe=174) RED CELL DISTRIBUTION WIDTH (BEAKER) (test 20.8 % 11.7-14.4 uooe=160) PLATELET COUNT (BEAKER) (test kals=434) 178 K/CU MM 150-450 MEAN PLATELET VOLUME (BEAKER) (test vlqb=474) 11.9 fL 9.4-12.3 NUCLEATED RED BLOOD CELLS (BEAKER) (test 2 /100 WBC 0-0 veto=758) NEUTROPHILS RELATIVE PERCENT (BEAKER) (test 47 % fwrq=195) LYMPHOCYTES RELATIVE PERCENT (BEAKER) (test 34 % ymwx=639) MONOCYTES RELATIVE PERCENT (BEAKER) (test 16 % bfit=561) EOSINOPHILS RELATIVE PERCENT (BEAKER) (test 3 % qcoy=893) BASOPHILS RELATIVE PERCENT (BEAKER) (test 0 % zmnp=866) NEUTROPHILS ABSOLUTE COUNT (BEAKER) (test 7.20 K/ L 1.56-6.13 chwc=250) LYMPHOCYTES ABSOLUTE COUNT (BEAKER) (test 5.22 K/ L 1.18-3.74 pfxa=874) MONOCYTES ABSOLUTE COUNT (BEAKER) (test 2.50 K/ L 0.24-0.36 kxem=174) EOSINOPHILS ABSOLUTE COUNT (BEAKER) (test 0.48 K/ L 0.04-0.36 gbds=889) BASOPHILS ABSOLUTE COUNT (BEAKER) (test 0.02 K/ L 0.01-0.08 zyae=392) IMMATURE GRANULOCYTES-RELATIVE PERCENT (BEAKER) 1 % 0-1 (test qngu=8630) (MANUAL DIFFERENTIAL)2017-05-28 15:40:00 Test Item Value Reference Range Comments TOTAL COUNTED (BEAKER) (test nvhq=1048) WBC MORPHOLOGY (BEAKER) (test wcbv=552) Normal PLT MORPHOLOGY (BEAKER) (test dpny=005) Normal ANISOCYTOSIS (BEAKER) (test itwh=445) 2+ moderate POLYCHROMATOPHILLIC RBCS(BEAKER) (test xmtf=537) 2+ moderate SICKLE CELLS (BEAKER) (test vwzb=483) 1+ few TARGET CELLS (BEAKER) (test ihtw=617) 2+ moderate URINALYSIS W/ [id number] 15:13:00 Test Item Value Reference Range Comments COLOR (BEAKER) (test evat=566) Yellow CLARITY (BEAKER) (test wtpo=918) Clear SPECIFIC GRAVITY UA (BEAKER) (test wofx=812) 1.008 1.001-1.035 PH UA (BEAKER) (test ekpu=792) 6.0 5.0-8.0 PROTEIN UA (BEAKER) (test wpin=114) Negative Negative GLUCOSE UA (BEAKER) (test vzby=096) Negative Negative KETONES UA (BEAKER) (test xqlz=006) Negative Negative BILIRUBIN UA (BEAKER) (test wief=600) Negative Negative BLOOD UA (BEAKER) (test dzix=717) Negative Negative NITRITE UA (BEAKER) (test vbeh=571) Negative Negative LEUKOCYTE ESTERASE UA (BEAKER) (test nqvx=240) Negative Negative UROBILINOGEN UA (BEAKER) (test yyvg=438) 0.2 mg/dL 0.2-1.0 RBC UA (BEAKER) (test aegr=072) < /HPF WBC UA (BEAKER) (test hkap=292) 2 /HPF MUCUS (BEAKER) (test sikb=1577) Rare SQUAMOUS EPITHELIAL (BEAKER) (test nujc=135) 5 /HPF SOURCE(BEAKER) (test mbou=3754) Urine, Voided BASIC METABOLIC [id number] 06:26:00 Test Item Value Reference Range Comments SODIUM (BEAKER) (test 139 meq/L 136-145 buge=238) POTASSIUM (BEAKER) (test 3.8 meq/L 3.5-5.1 anlt=739) CHLORIDE (BEAKER) (test 104 meq/L 98-107 ofko=799) CO2 (BEAKER) (test 30 meq/L 22-29 khcp=837) BLOOD UREA NITROGEN 6 mg/dL 7-21 (BEAKER) (test zzvd=714) CREATININE (BEAKER) (test 0.56 mg/dL 0.57-1.25 zgmz=577) GLUCOSE RANDOM (BEAKER) 102 mg/dL 70-105 (test mgtd=716) CALCIUM (BEAKER) (test 9.0 mg/dL 8.4-10.2 ruev=110) EGFR (BEAKER) (test 147 mL/min/1.73 sq m ESTIMATED GFR IS NOT ixie=1830) ACCURATE CREATININE CLEARANCE IN PREDICTING GLOMERULAR FILTRATION RATE. ESTIMATED GFR IS NOT APPLICABLE FOR DIALYSIS PATIENTS.
[2019-03-04] MEDS ORDERED: PROMETHAZINE 25 MG/ML VIAL ONE ×2 (13:16→15:49)
[2019-03-04] MEDS ORDERED: NA CHLORIDE 0.9% 1,000 ML ONE (13:17)
[2019-03-04] MEDS ORDERED: HYDROMORPHONE HCL 1 MG/ML INJ ONE ×2 (13:17→15:50)
[2019-03-04] MEDS ORDERED: DIPHENHYDRAMINE 50 MG/ML VIAL ONE ×2 (13:17→15:50)
[2019-03-04 13:43] LABS: Hematocrit 24.8 % (36.0-45.0)
[2019-03-04 14:00] LABS: ALT/SGPT 81 U/L (12-78); AST/SGOT 155 U/L (15-37); Albumin 3.6 g/dL (3.4-5.0); Alkaline Phosphatase 195 U/L (45-117); BUN Blood Urea Nitrogen 7 mg/dL (7-18); Bicarbonate 29 mmol/L (21-32); Bilirubin Total 3.4 mg/dL (0.2-1.0); Glucose Level 79 mg/dL (74-106); Potassium 3.9 mmol/L (3.5-5.1); Protein, Total 9.2 g/dL (6.4-8.2); Sodium Level 141 mmol/L (136-145)
[2019-03-04 14:23] LABS: Anisocytosis 3+; Blood Morphology Comment NOTED (NOT SEEN); Hypochromasia 1+; Macrocytosis 2+; Platelet Estimate ADEQ; Platelets, Giant NOTED
[2019-03-04 14:24] LABS: Poikilocytosis 2+; Polychromasia 2+; Target Cells 1+
--- NOTE | 2019-03-04 14:29 | ER ---
Nurse's Notes [facility] Name: Brennon Berg Age: 38 yrs Sex: Female : 1980 Arrival Date: 03/04/2019 Time: 11:42 Bed 6 Private MD: Diagnosis: Other sickle-cell disorders with crisis Presentation: 03/04 11:48 Presenting complaint: Patient states: im hurting all over due tot my sickle cell; this hj morning is so horrible; took 2 norco but its not helping;. Transition of care: patient was not received from another setting of care. Onset of symptoms was March 04, 2019. Risk Assessment: Do you want to hurt yourself or someone else? Patient reports no desire to harm self or others. Initial Sepsis Screen: Does the patient meet any 2 criteria? No. Patient's initial sepsis screen is negative. Does the patient have a suspected source of infection? No. Patient's initial sepsis screen is negative. Care prior to arrival: None. 11:48 Method Of Arrival: Ambulatory 11:48 Acuity: TEMI 3 hj Historical: - Allergies: 11:50 Fentanyl; hj 11:50 Morphine; hj 11:50 Reglan; hj 11:50 Stadol; hj 11:50 Toradol; hj 11:50 tramadol; hj 11:50 Trazodone; hj 11:50 Ultram; hj 11:50 Zofran; hj - PMHx: 11:50 aplastic anemia; CVA; L sided weakness; Myocardial infarction; Seizures; Sickle Cell; hj - PSHx: 11:50 Hysterectomy; spleenectomy; hj - Immunization history:: Adult Immunizations up to date. - Social history:: The patient lives at home, Smoking status: Patient/guardian denies using tobacco. - Ebola Screening: : Patient negative for fever greater than or equal to 101.5 degrees Fahrenheit, and additional compatible Ebola Virus Disease symptoms Patient denies exposure to infectious person Patient denies travel to an Ebola-affected area in the 21 days before illness onset No symptoms or risks identified at this time. Screenin:10 Abuse screen: Denies threats or abuse. Denies injuries from another. Nutritional sg screening: No deficits noted. Tuberculosis screening: No symptoms or risk factors identified. Never had TB. Fall Risk None identified. Assessment: 12:05 General: Appears in no apparent distress. comfortable, well groomed, well developed, sg well nourished, Behavior is calm, cooperative, appropriate for age. Pain: Complains of pain in bodyaches Quality of pain is described as aching. Neuro: Level of Consciousness is awake, alert, obeys commands, Oriented to person, place, time, Rn Licensed Practical are equal bilaterally Moves all extremities. Speech is normal, Facial symmetry appears normal. Cardiovascular: Capillary refill is brisk in bilateral fingers Patient's skin is warm and dry. Chest pain is denied. Respiratory: Airway is patent Respiratory effort is even, unlabored, Respiratory pattern is regular, symmetrical. GI: Abdomen is round non-distended. : No signs and/or symptoms were reported regarding the genitourinary system. EENT: No signs and/or symptoms were reported regarding the EENT system. Derm: Skin is intact, is healthy with good turgor, Skin is dry, Skin is normal, Skin temperature is warm. Musculoskeletal: Circulation, motion, and sensation intact. Range of motion: intact in all extremities. 13:41 Reassessment: Pt requesting food and water. Informed Dr Hodge of pt's request, ok to sv eat and drink. Pt given sandwich and water. Pt grateful. Vital Signs: 11:50 BP 163 / 102; Pulse 83; Resp 18; Temp 97.7(TE); Pulse Ox 94% on R/A; Weight 78.02 kg; hj Height 5 ft. 3 in. (160.02 cm); Pain 10/10; 16:30 BP 160 / 86; Pulse 88; Resp 17; Temp 97.2; Pulse Ox 98% on R/A; Pain 7/10; sg 11:50 Body Mass Index 30.47 (78.02 kg, 160.02 cm) ED Course: 11:42 Patient arrived in ED. as 11:49 Triage completed. 11:51 Arm band placed on right wrist. 12:10 Patient has correct armband on for positive identification. Bed in low position. Call sg light in reach. Side rails up X2. Pulse ox on. NIBP on. 12:33 Melvin Hodge MD is Attending Physician. 13:20 Initial lab(s) drawn, by me, sent to lab. Accessed Port-a-Cath. Blood collected. using sv accessed w/ # 20 Brasher needle, ,sterile technique, per hospital protocol. Clean \T\ dry. Dressing intact. Good blood return. Flushes easily. 13:25 Lisandro Coronel, RN is Primary Nurse. sg 16:20 No provider procedures requiring assistance completed. IV discontinued, intact, sg bleeding controlled, No redness/swelling at site. Pressure dressing applied. Administered Medications: 13:22 Drug: Phenergan 25 mg Route: IVP; Site: Port-a-cath; sv 14:30 Follow up: Response: No adverse reaction sg 13:22 Drug: NS 0.9% 1000 ml Route: IV; Rate: 125 ml/hr; Site: Port-a-cath; sv 13:24 Drug: Benadryl 25 mg Route: IVP; Site: Port-a-cath; sv 14:30 Follow up: Response: No adverse reaction sg 13:26 Drug: Dilaudid 1 mg Route: IVP; Site: Port-a-cath; sv 15:26 Follow up: Response: No adverse reaction; Pain is decreased sg 15:45 Drug: Phenergan 25 mg Route: IVP; Site: PICC; sg 15:45 Drug: Benadryl 25 mg Route: IVP; Site: Port-a-cath; sg 15:45 Drug: Dilaudid 1 mg Route: IVP; Site: Port-a-cath; sg Outcome: 14:29 Discharge ordered by . 16:20 Discharged to home ambulatory, with family. sg 16:20 Condition: good 16:20 Discharge instructions given to patient, Instructed on discharge instructions, follow up and referral plans. safety practices, Demonstrated understanding of instructions, follow-up care. 16:29 Patient left the ED. sg Signatures: Brigitte Olson RN NIKKI iLsandro Coronel, RN RN Paloma King Henry, RN RN hj Starr, Gregory, MD MD Corrections: (The following items were deleted from the chart) 11:52 11:50 Pulse 83bpm; Resp 18bpm; Pulse Ox 94% RA; Temp 97.7F Temporal; 78.02 kg; Height 5 hj ft. 3 in.; BMI: 30.4; Pain 10/10; hj 15:27 14:30 Response: No adverse reaction sg sg
--- NOTE | 2019-03-04 14:30 | EDPHYS ---
Physician Documentation [facility] Name: Brennon Berg Age: 38 yrs Sex: Female : 1980 Arrival Date: 03/04/2019 Time: 11:42 Bed 6 Private MD: ED Physician Melvin Hodge HPI: 03/04 15:54 This 38 yrs old Black Female presents to ER via Ambulatory with complaints of Sickle gs Cell Crisis. 15:54 pain all over, no sob or isolated chest pain. Onset: The symptoms/episode gs began/occurred gradually, today. Severity of symptoms: At their worst the symptoms were moderate in the emergency department the symptoms are unchanged. The patient has experienced similar episodes in the past, chronically. Historical: - Allergies: 11:50 Fentanyl; hj 11:50 Morphine; hj 11:50 Reglan; hj 11:50 Stadol; hj 11:50 Toradol; hj 11:50 tramadol; hj 11:50 Trazodone; hj 11:50 Ultram; hj 11:50 Zofran; hj - PMHx: 11:50 aplastic anemia; CVA; L sided weakness; Myocardial infarction; Seizures; Sickle Cell; hj - PSHx: 11:50 Hysterectomy; spleenectomy; hj - Immunization history:: Adult Immunizations up to date. - Social history:: The patient lives at home, Smoking status: Patient/guardian denies using tobacco. - Ebola Screening: : Patient negative for fever greater than or equal to 101.5 degrees Fahrenheit, and additional compatible Ebola Virus Disease symptoms Patient denies exposure to infectious person Patient denies travel to an Ebola-affected area in the 21 days before illness onset No symptoms or risks identified at this time. ROS: 15:54 All other systems are negative. gs Exam: 15:54 Constitutional: The patient appears alert, awake. gs 15:54 Eyes: Sclera: icterus, is not appreciated. 16:07 Head/Face: Normocephalic, atraumatic. ENT: Nares patent. No nasal discharge, no gs septal abnormalities noted. Tympanic membranes are normal and external auditory canals are clear. Oropharynx with no redness, swelling, or masses, exudates, or evidence of obstruction, uvula midline. Mucous membranes moist. Neck: Trachea midline, no thyromegaly or masses palpated, and no cervical lymphadenopathy. Supple, full range of motion without nuchal rigidity, or vertebral point tenderness. No Meningismus. Chest/axilla: Normal chest wall appearance and motion. Nontender with no deformity. No lesions are appreciated. Cardiovascular: Regular rate and rhythm with a normal S1 and S2. No gallops, murmurs, or rubs. Normal PMI, no JVD. No pulse deficits. Respiratory: Lungs have equal breath sounds bilaterally, clear to auscultation and percussion. No rales, rhonchi or wheezes noted. No increased work of breathing, no retractions or nasal flaring. Abdomen/GI: Soft, non-tender, with normal bowel sounds. No distension or tympany. No guarding or rebound. No evidence of tenderness throughout. Back: No spinal tenderness. No costovertebral tenderness. Full range of motion. Skin: Warm, dry with normal turgor. Normal color with no rashes, no lesions, and no evidence of cellulitis. MS/ Extremity: Pulses equal, no cyanosis. Neurovascular intact. Full, normal range of motion. Neuro: Awake and alert, GCS 15, oriented to person, place, time, and situation. Cranial nerves II-XII grossly intact. Motor strength 5/5 in all extremities. Sensory grossly intact. Cerebellar exam normal. Normal gait. Vital Signs: 11:50 BP 163 / 102; Pulse 83; Resp 18; Temp 97.7(TE); Pulse Ox 94% on R/A; Weight 78.02 kg; hj Height 5 ft. 3 in. (160.02 cm); Pain 10/10; 16:30 BP 160 / 86; Pulse 88; Resp 17; Temp 97.2; Pulse Ox 98% on R/A; Pain 7/10; sg 11:50 Body Mass Index 30.47 (78.02 kg, 160.02 cm) hj MDM: 12:35 Patient medically screened. 16:07 Data reviewed: vital signs, nurses notes, lab test result(s). Counseling: I had a detailed discussion with the patient and/or guardian regarding: the historical points, exam findings, and any diagnostic results supporting the discharge/admit diagnosis, lab results. Response to treatment: the patient's symptoms have markedly improved after treatment, the patient's condition has returned to base line, and as a result, I will discharge patient. 03/04 12:38 Order name: CBC with Diff; Complete Time: 14:26 03/04 12:38 Order name: CMP; Complete Time: 14:26 03/04 12:38 Order name: Retic Count; Complete Time: 14: 03/04 13:52 Order name: Manual Differential; Complete Time: 14:26 EDMS Administered Medications: 13:22 Drug: Phenergan 25 mg Route: IVP; Site: Port-a-cath; sv 14:30 Follow up: Response: No adverse reaction sg 13:22 Drug: NS 0.9% 1000 ml Route: IV; Rate: 125 ml/hr; Site: Port-a-cath; sv 13:24 Drug: Benadryl 25 mg Route: IVP; Site: Port-a-cath; sv 14:30 Follow up: Response: No adverse reaction sg 13:26 Drug: Dilaudid 1 mg Route: IVP; Site: Port-a-cath; sv 15:26 Follow up: Response: No adverse reaction; Pain is decreased sg 15:45 Drug: Phenergan 25 mg Route: IVP; Site: PICC; sg 15:45 Drug: Benadryl 25 mg Route: IVP; Site: Port-a-cath; sg 15:45 Drug: Dilaudid 1 mg Route: IVP; Site: Port-a-cath; sg Disposition: 03/04/19 14:29 Discharged to Home. Impression: Other sickle-cell disorders with crisis. - Condition is Stable. - Discharge Instructions: Sickle Cell Anemia, Adult, [id number]. - Medication Reconciliation Form, Thank You Letter, Antibiotic Education, Prescription Opioid Use form. - Follow up: Private Physician; When: 2 - 3 days; Reason: Re-evaluation by your physician. Signatures: Dispatcher [employer] Brigitte York RN RN sv Gay, Steven, RN RN sg Joaquin, Henry, RN RN hj Starr, Gregory, MD MD gs Corrections: (The following items were deleted from the chart) 16:29 14:29 03/04/2019 14:29 Discharged to Home. Impression: Other sickle-cell disorders with sg crisis. Condition is Stable. Forms are Medication Reconciliation Form, Thank You Letter, Antibiotic Education, Prescription Opioid Use. Follow up: Private Physician; When: 2 - 3 days; Reason: Re-evaluation by your physician. gs
[2019-03-04] MEDS ORDERED: HEPARIN 500 UNIT/5 ML SYR IV ONE (16:36)
[2019-03-04 17:45] VITALS: BP 160/86; TEMP 97.2; O2SAT 98
== END 2019-03-04 16:29 | disposition home or self-care (01) ==
LOC: ER 11:39
DX: D57.00 Hb-SS disease with crisis, unspecified (principal); Z86.73 Personal history of transient ischemic attack (TIA), and cerebral infarction without residual deficits; I25.2 Old myocardial infarction; Z88.5 Allergy status to narcotic agent; Z88.8 Allergy status to other drugs, medicaments and biological substances
CPT/HCPCS: 85025; 36415; 85044; 80053; 99284; J2550 ×2; J1170 ×2; J1642; J7030

== ENCOUNTER 2019-03-15 23:33 | Inpatient (IN) | payer OTHER ==
--- OUTSIDE RECORDS SUMMARY | 2019-03-15 23:36 | XMS REPORT | Clinical Summary ---
:1980 Author Organization [facility] Address [address] [place] [address] Care Team Providers Name Role Phone Kwesi Guaman MD Primary Care Provider Unavailable Chavo Pate Unavailable Allergies Active Allergy Reactions Severity Noted Date Comments Morphine Other (See Comments) 11/27/2013 seizures Metoclopramide Hcl 12/30/2018 Butorphanol Tartrate Other (See Comments) 11/27/2013 seizures Ctt-Od-Qbo-Asdfokqp-Yyybj-Vvoh 10/01/2014 seizure Ketorolac Other (See Comments) 11/27/2013 [...] Oncology Kwesi Guaman 10/06/2018 MD Justin after 03/14/2018 Family History Medical History Relation Name Comments [...] PROCEDURE - 10/14/2018 11:00 ENDOSCOPY SCAN AM [facility] HEMOGLOBIN Routine 10/06/2018 10:59 Results for this AM [facility] procedure are in the results section. VENOUS DOPPLER LEG, Routine 10/04/2018 3:00 Results for this RIGHT PM [facility] procedure are in the results section. (CELLAVISION MANUAL Routine 10/04/2018 5:07 Results for this DIFF) AM [facility] procedure are in the results section. CBC W/PLT COUNT & AUTO Routine 10/04/2018 5:07 Results for this DIFFERENTIAL AM [facility] procedure are in the results section. CBC W/PLT COUNT & AUTO Routine 10/04/2018 5:07 Results for this DIFFERENTIAL AM [facility] procedure are in the results section. BASIC METABOLIC PANEL Routine 10/04/2018 5:07 Results for this (7) AM [facility] procedure are in the results section. (CELLAVISION MANUAL Routine 10/03/2018 6:39 Results for this DIFF) AM [facility] procedure are in the results section. CBC W/PLT COUNT & AUTO Routine 10/03/2018 6:39 Results for this DIFFERENTIAL AM [facility] procedure are in the results section. CBC W/PLT COUNT & AUTO Routine 10/03/2018 6:39 Results for this DIFFERENTIAL AM [facility] procedure are in the results section. BASIC METABOLIC PANEL Routine 10/03/2018 6:39 Results for this (7) AM [facility] procedure are in the results section. (CELLAVISION MANUAL Routine 10/02/2018 5:51 Results for this DIFF) AM [facility] procedure are in the results section. CBC W/PLT COUNT & AUTO Routine 10/02/2018 5:51 Results for this DIFFERENTIAL AM [facility] procedure are in the results section. BASIC METABOLIC PANEL Routine 10/02/2018 5:51 Results for this (7) AM [facility] procedure are in the results section. CBC W/PLT COUNT & AUTO Routine 10/02/2018 5:51 Results for this DIFFERENTIAL AM [facility] procedure are in the results section. FERRITIN Routine 10/02/2018 5:51 Results for this AM [facility] procedure are in the results section. TRANSFUSION SERVICE 09/30/2018 6:00 REPORT - SCAN PM [facility] (CELLAVISION MANUAL Routine 09/30/2018 4:16 Results for this DIFF) AM [facility] procedure are in the results section. CBC W/PLT COUNT & AUTO Routine 09/30/2018 4:16 Results for this DIFFERENTIAL AM [facility] procedure are in the results section. COMPREHENSIVE METABOLIC Routine 09/30/2018 4:16 Results for this PANEL AM [facility] procedure are in the results section. CBC W/PLT COUNT & AUTO Routine 09/30/2018 4:16 Results for this DIFFERENTIAL AM [facility] procedure are in the results section. HEPATIC FUNCTION PANEL Routine 09/30/2018 4:16 Results for this AM [facility] procedure are in the results section. PREPARE LEUKO-REDUCED Routine 09/29/2018 11:54 Results for this RBC PM [facility] procedure are in the results section. TRANSFUSION SERVICE 09/29/2018 6:00 REPORT - SCAN PM [facility] (CELLAVISION MANUAL Routine 09/29/2018 4:17 Results for this DIFF) AM [facility] procedure are in the results section. CBC W/PLT COUNT & AUTO Routine 09/29/2018 4:17 Results for this DIFFERENTIAL AM [facility] [employer] procedure are in the results section. CBC W/PLT COUNT & AUTO Routine 09/29/2018 4:17 Results for this DIFFERENTIAL AM [facility] procedure are in the results section. HEPATIC FUNCTION PANEL Routine 09/29/2018 4:17 Results for this AM [facility] procedure are in the results section. BASIC METABOLIC PANEL Routine 09/29/2018 4:17 Results for this (7) AM [facility] procedure are in the results section. TRANSFUSE LEUKO-REDUCED Routine 09/29/2018 12:06 RED BLOOD CELLS AM [facility] TRANSFUSE LEUKO-REDUCED Routine 09/28/2018 7:20 RED BLOOD CELLS PM [facility] ANTIBODY IDENTIFICATION Routine 09/28/2018 10:52 Results for this AM [facility] procedure are in the results section. TYPE AND SCREEN, Routine 09/28/2018 4:31 Results for this AUTOMATED AM [facility] procedure are in the results section. HEPATIC FUNCTION PANEL Routine 09/28/2018 4:31 Results for this AM [facility] procedure are in the results section. BASIC METABOLIC PANEL Routine 09/28/2018 4:31 Results for this (7) AM [facility] procedure are in the results section. (CELLAVISION MANUAL Routine 09/28/2018 12:10 Results for this DIFF) AM [facility] procedure are in the results section. CBC W/PLT COUNT & AUTO Routine 09/28/2018 12:10 Results for this DIFFERENTIAL AM [facility] procedure are in the results section. CBC W/PLT COUNT & AUTO Routine 09/28/2018 12:10 Results for this DIFFERENTIAL AM [facility] procedure are in the results section. 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 Narrative Performed At CT chest for pulmonary embolus (01/08/2019 9:42 AM CDT) Specimen Narrative Performed At FINAL REPORT [employer] [facility] INDICATION: Acute chest pain. COMPARISON: Chest radiograph [...] MD Report Verified Date/Time:01/08/2019 09:54:01 Reading Location: [facility] C013Y CT Body Reading Room Procedure Note [...] Report Verified Date/Time: 01/08/2019 09:54:01 Reading Location: [facility] B1 C013Y CT Body Reading Room Performing Organization Address City/State/Zipcode Phone Number [facility] Troponin I (01/08/2019 1:04 AM CDT)Only the most recent of2 resultswithin the time period is included. Troponin I <0.01 0.00 - 0.03 ng/mL [facility] Specimen Blood Narrative Performed At Troponin I (TnI) levels must be interpreted [facility] in the context of the [...] disease, and persistent tachyarrhythmia. Performing Organization Address City/[facility] Phone Number [address] [address] CENTER Creatine Kinase (CK) (01/08/2019 1:04 AM CDT)Only the most recent of2 resultswithin the time period is included. Total CK 7 (L) 29 - 200 U/L [facility] Specimen Blood Performing Organization Address City/State/Zipcode Phone Number [facility] [address] [place] [phone] [place] ECG 12 lead (01/07/2019 6:28 PM CDT) Specimen Narrative Performed At Ventricular Rate 99 BPM GE MUSE Atrial Rate 99 BPM P-R Interval 172 ms QRS Duration 80 ms Q-T Interval 372 ms QTC Calculation(Bazett) 477 ms P [place] 46 degrees R [place] 17 degrees T [place] 40 degrees Sinus rhythm Normal ECG When [...] 372 ms QTC Calculation(Bazett) 477 ms P [place] 46 degrees R [place] 17 degrees T [place] 40 degrees Sinus rhythm Normal ECG When [...] MD Report Verified Date/Time:01/07/2019 08:40:21 Reading Location: [facility] Radiology Reading Room Procedure Note Interface, External [...] Report Verified Date/Time: 01/07/2019 08:40:21 Reading Location: [facility] Radiology Reading Room Performing Organization Address City/State/Zipcode Phone Number GE RIS Manual Differential (01/06/2019 3:57 AM CDT)Only the most recent of10 resultswithin the time period is included. % Neutros 57 % [facility] % Lymphs 19 % [facility] % Monos 18 % [facility] % Eos 6 % [facility] # Neutros 11.51 (H) 1.56 - 6.13 K/ul [facility] # Lymphs 3.84 (H) 1.18 - 3.74 K/ul [facility] # Monos 3.64 (H) 0.24 - 0.36 K/uL [facility] # Eos 1.21 (H) 0.04 - 0.36 K/uL [facility] Total Counted 100 [facility] nRBC (manual) 9 (H) 0 - 0 /100 WBC [facility] Smudge Cells Present [facility] Giant Platelet Present [facility] Polychromasia 2+ moderate [facility] Anisocytosis 2+ moderate [facility] Macrocytes 2+ moderate [facility] Sickle Cells 1+ few [facility] Artifact Present [facility] Platelet Conc Adequate [facility] Specimen Blood Narrative Performed At Received comment: [facility] User comments: Slide comments: Performing Organization Address City/State/Zipcode Phone Number [facility] [address] [place] [address] [phone] CENTER CBC with platelet count + automated diff (01/06/2019 3:57 AM CDT)Only the most recent of10 resultswithin the time period is included. WBC 20.2 (H) 3.5 - 10.5 K/L [facility] RBC 2.32 (L) 3.93 - 5.22 M/L [facility] Hemoglobin 7.9 (L) 11.2 - 15.7 GM/DL [facility] Hematocrit 24.5 (L) 34.1 - 44.9 % [facility] MCV 105.6 (H) 79.4 - 94.8 fL [facility] MCH 34.1 (H) 25.6 - 32.2 pg [facility] MCHC 32.2 32.2 - 35.5 GM/DL [facility] RDW 22.3 (H) 11.7 - 14.4 % [facility] Platelets 219 150 - 450 K/CU MM [facility] MPV 11.6 9.4 - 12.3 fL [facility] nRBC 7 (H) 0 - 0 /100 WBC [facility] Specimen Blood Performing Organization Address City/State/Zipcode Phone Number [facility] [address] [place] [address] CENTER Basic Metabolic Panel (01/06/2019 3:57 AM CDT)Only the most recent of10 resultswithin the time period is included. Sodium 140 136 - 145 meq/L [facility] Potassium 4.2 3.5 - 5.1 meq/L [facility] Chloride 96 (L) 98 - 107 meq/L [facility] CO2 34 (H) 22 - 29 meq/L [facility] BUN 10 7 - 21 mg/dL [facility] Creatinine 0.58 0.57 - 1.25 mg/dL [facility] Glucose 95 70 - 105 mg/dL [facility] Calcium 9.6 8.4 - 10.2 mg/dL [facility] EGFR 140Comment: ESTIMATED GFR IS mL/min/1.73 sq m [facility] NOT ACCURATE [facility] CLEARANCE IN PREDICTING GLOMERULAR FILTRATION RATE. ESTIMATED GFR IS NOT APPLICABLE FOR DIALYSIS PATIENTS. Specimen Blood Narrative Performed At Specimen slightly icteric [facility] Performing Organization Address City/[facility]/Zipcode Phone Number [facility] [address] [place] [address] CENTER TRANSFUSION SERVICE REPORT - SCAN (01/02/2019 5:51 PM CDT)Only the most recent of4 resultswithin the time period is included. Narrative Performed At Prepare Leuko-Red RBC (01/01/2019 11:54 PM CDT)Only the most recent of2 resultswithin the time period is included. Unit ABO O Pos [facility] [place] UNIT NUMBER [id number] [facility] [place] Status WORK IN PROGRESS [facility] [place] Blood Bank Product RED BLOOD CELLS [facility] PRODUCT CODE [id number] [facility] [place] Unit ABO O Pos [facility] UNIT NUMBER [id number] [facility] [place] Status WORK IN [facility] [place] Blood Bank Product RED BLOOD CELLS [facility] PRODUCT CODE [id number] [facility] [place] CROSSMATCH COMPATIBLE [facility] [place] Unit ABO O Pos [facility] UNIT NUMBER [id number] [facility] [place] Status TX_TIMEINCHART [facility] [place] Blood Bank Product RED BLOOD CELLS [facility] PRODUCT CODE [id number] [facility] [place] CROSSMATCH COMPATIBLE [facility] [place] Unit ABO O Pos [facility] UNIT NUMBER [id number] [facility] [place] Status TX_TIMEINCHART [facility] [place] Blood Bank Product RED BLOOD CELLS [place] PRODUCT CODE [id number] [facility] [place] Specimen Other Performing Organization Address City/[facility]/Zipcode Phone Number [facility] [place] CBC with platelet count + manual diff (01/01/2019 8:12 AM CDT) WBC 22.9 (H) 3.5 - 10.5 K/L [facility] RBC 2.28 (L) 3.93 - 5.22 M/L [facility] Hemoglobin 7.7 (L) 11.2 - 15.7 GM/DL [facility] Hematocrit 23.2 (L) 34.1 - 44.9 % [facility] MCV 101.8 (H)Comment: Discordant 79.4 - 94.8 fL [facility] results compared to previous MEDICAL CENTER result; clinical correlation required. MCH 33.8 (H) 25.6 - 32.2 pg [facility] MCHC 33.2 32.2 - 35.5 GM/DL [facility] RDW 23.3 (H) 11.7 - 14.4 % [facility] Platelets 251 150 - 450 K/CU MM [facility] MPV 10.7 9.4 - 12.3 fL [facility] nRBC 52 (H) 0 - 0 /100 WBC [facility] Specimen Blood Performing Organization Address City/[facility] Cent[facility]ode Phone Number [facility] [address], [place] [phone] CENTER Transfuse Leuko-Red RBC (12/31/2018 8:13 PM [...] Judah Ortez M.D. Specimen Performing Organization Address City/[facility] Cent[facility]ode Phone Number [facility] [place] Hemoglobin and hematocrit (12/31/2018 11:38 AM CDT) Hemoglobin 5.5 (LL) 11.2 - 15.7 GM/DL [facility] Hematocrit 17.1 (L) 34.1 - 44.9 % [facility] Specimen Blood Performing Organization Address City/[facility] Centercode Phone Number [facility] [address] [place] [phone] CENTER Type and screen, automated (12/31/2018 7:49 AM CDT)Only the most recent of2 resultswithin the time period is included. ABO/RH AUTOMATED (BEAKER) O POSITIVE [facility] Ab Scrn POSITIVE [facility] Specimen Blood Performing Organization Address City/[facility] Centercode Phone Number [address] [phone] EKG-SCANNED (10/14/2018 11:00 AM [facility]) Narrative Performed At Hemoglobin (10/06/2018 10:59 AM [facility]) Hemoglobin 7.1 (L) 11.2 - 15.7 GM/DL [facility] Specimen Blood Performing Organization Address City/[facility] Centercode Phone Number [address] [phone] CENTER Venous doppler leg, right (10/04/2018 3:00 PM [facility]) Ejection Fraction [facility] ECHO HEARTLAB MKCKESSON CPACS Specimen Impressions Performed At Right Impression [facility] ECHO HEARTLAB MKCKESSON CPACS 1. There is [...] Extremities DVT Study [facility] ECHO HEARTLAB MKCKESSON [facility] Demographics Patient NameSMITEduardo, RODRIGODate of Study 10/04/2018 DIANA Age 38 Visit [id number] GenderFemale Date of 1980 Referring Neal [facility] [id number] Physician Systems Architecture Analyst Physician RITO Manzanares Procedure Type of Study: Veins: Lower Extremities DVT Study, VENOUS DOPPLER LEG, RIGHT. Indications for Study:Pain. Patient Status:Routine. Study Location:Vascular Lab. Technical Quality:Adequate visualization. Risk Factors History of Disease + + + + !Diagnosis !Date !Comments ! + + + + !Stroke! ! ! + + + + Procedure Note Interface, External Ris In - 10/05/2018 10:51 AM [facility] - Lower Extremities DVT Study Demographics Patient Name RODRIGO BERG Date of Study 10/04/2018 DIANA Age 38 Visit Number [id number] Gender Female Accession Number [id number] Date of 1980 Referring Neal Lezama MD Room Number [id number] Physician Systems Architecture Analyst Colt Zamudio Interpreting Physician RITO Mattson Procedure [...] are measured in cm Performing Organization Address City/[facility] Centercode Phone Number [facility] Ferritin (10/02/2018 5:51 AM [facility]) Ferritin 26,952 (H) 5 - 275 ng/mL [facility] Specimen Blood Performing Organization Address City/[facility]/Zipcode Phone Number [facility] [address] [place] [address] [phone] CENTER Hepatic function panel (09/30/2018 4:16 AM [facility])Only the most recent of3 resultswithin the time period is included. Protein, Total 7.9 6.0 - 8.3 gm/dL [facility] Albumin 3.2 (L) 3.5 - 5.0 g/dL [facility] Total Bilirubin 2.5 (H) 0.2 - 1.2 mg/dL [facility] Bilirubin, Direct 1.2 (H) 0.1 - 0.5 mg/dL [facility] Alkaline Phosphatase 183 (H) 40 - 150 U/L [facility] AST 129 (H) 5 - 34 U/L [facility] ALT 72 (H) 6 - 55 U/L [facility] Specimen Blood Performing Organization Address City/State/Zipcode Phone Number [facility] [address], [place] [phone] [place] Comprehensive metabolic panel (09/30/2018 4:16 AM [facility]) Protein, Total 7.9 6.0 - 8.3 gm/dL [facility] Albumin 3.2 (L) 3.5 - 5.0 g/dL [facility] Alkaline Phosphatase 183 (H) 40 - 150 U/L [facility] Total Bilirubin 2.5 (H) 0.2 - 1.2 mg/dL [facility] Sodium 141 136 - 145 meq/L [facility] Potassium 3.8 3.5 - 5.1 meq/L [facility] Chloride 104 98 - 107 meq/L [facility] CO2 28 22 - 29 meq/L [facility] BUN 12 7 - 21 mg/dL [facility] Creatinine 0.69 0.57 - 1.25 mg/dL [facility] Glucose 97 70 - 105 mg/dL [facility] Calcium 8.4 8.4 - 10.2 mg/dL [facility] AST 129 (H) 5 - 34 U/L [facility] ALT 72 (H) 6 - 55 U/L [facility] EGFR 115Comment: ESTIMATED mL/min/1.73 sq m [facility] GFR IS NOT ACCURATE [facility] CREATININE CLEARANCE IN PREDICTING GLOMERULAR FILTRATION RATE. ESTIMATED GFR IS NOT APPLICABLE FOR DIALYSIS PATIENTS. Specimen Blood Performing Organization Address City/State/Zipcode Phone Number [facility] [address], [place] [phone] CENTER after 03/14/2018 Insurance Payer Benefit Plan / Subscriber ID Type Phone Address Group [facility] UNITED MEDICARE xxxxxxxxx MEDICARE MGD CARE HMO MEDICAID - MEDICAID [facility] COMM STAR xxxxxxxxx Medicaid Contracted MGD CARE PLAN Advance Directives For more information, please contact:[place] [phone] [place], [place] [phone] Code Status Date Activated Date Inactivated Comments [...]
--- OUTSIDE RECORDS SUMMARY | 2019-03-15 23:37 | XMS REPORT | Continuity of Care Document ---
:1980 Author Organization [facility] [employer] Care Team Providers Name Role Phone [facility] Information [employer] Unavailable Unavailable Problems Problem Status Onset Classification Date Comments Source Date Reported SICKLE CELL CRISIS Active 09/08/[address] Final: 09/13/2014 [facility] Aplastic anemia Resolved Problem 09/13/2014 [facility] CVA - Resolved Problem 09/13/2014 [facility] Cerebrovascular [facility] accident Center Sickle cell anemia Resolved Problem 09/13/2014 [facility] TIA Resolved Problem 09/13/2014 [facility] HB-SS DISEASE W Active [facility] Medications Medication Details Route Status Patient Ordering Order Source Instructions Provider Date 12 HR Oxymorphone 30 mg=1 tab, Active [facility] Hydrochloride 30 PO, Q12H, 0 2014 [facility] MG Extended Refill(s) Center Release Tablet [Opana] Lovenox 40 mg, 0.4 mL, No Longer [facility] Route: SUB-Q, Active 2014 [facility] Drug form: INJ, Center [id number], Dosing Weight 70.591, kg, Start date: 09/10/14 19:00:00, Duration: 30 day, Stop date: 10/09/14 19:00:00Notes: (Same as: Lovenox) Promethazine 12.5 mg, 0.5 No Longer 09/10[facility] mL, Route: Active 2014 [facility] IVPB, Drug Center form: INJ, Q4H, Dosing Weight 70.591, kg, PRN Nausea & Vomiting, Start date: 09/10/14 17:52:00, Duration: 30 day, Stop date: 10/10/14 17:51:00Notes: Do not give IV push. (Same as: Phenergan) Hydromorphone 15 mg, 30 mL, No Longer [facility] Route: IV, Active 2014 Medical Initial Loading Center Dose: 0.4mg, LIVESTOCK NUTRITIONIST Dose: 0.2 mg, [employer]IVESTOCK NUTRITIONIST Lockout: 10 minutes, Continuous Basal Rate: 0 mg, 4 Hour Limit (In MG): 3, Drug Form: INJ, Continuous, Start date: 09/10/14 11:00:00, Duration: 30 day, Stop date: 10/10/14 10:...Notes: (Same as: Dilaudid) conc=0.5 mg/ml Hydromorphone LIVESTOCK NUTRITIONIST Dose: ;Delay: ;Basal: Naloxone 0.04 mg, 0.1 [...] 09/09/14 3:43:00 Phenergan 12.5 mg, Route: Inactive [facility] IVPB, ONCE, 2014 Medical Dosing Weight Center [...] 23:41:00 Hydromorphone 2 mg, Route: No Longer [facility] IVP, ONCE, Active 2014 Medical Dosing Weight Center 70, kg, Priority: STAT, Start date: 09/08/14 23:41:00, Stop date: 09/08/14 23:41:00 Saline Flush 0.9% 10 mL, Route: No Longer [facility] IVP, Drug Form: Active 2014 Medical INJ, Dosing Center Weight 70, kg, PRN, PRN Line Flush, Start date: 09/08/14 23:41:00, Duration: 30 day, Stop date: 10/08/14 23:40:00Notes: Same as: BD Posiflush Sterile Allergies, Adverse Reactions, Alerts Substance Category Reaction Severity Reaction Status Date Comments Source type Reported morphine Assertion Drug Active [facility] Stadol Assertion Drug Active [facility] Toradol Assertion Drug Active [facility] traMADol Assertion Drug Active [facility] Zofran Assertion Drug Active [facility] [place] [facility] Immunizations No Data Provided for This Section Results Order Name Results Value Reference Date Interpretation Comments Source Range CHEM PANEL LDH 507 98 - 192 09/11 [facility] ELECTROLYTE AGAP 10.8 10.0 - 09/11 [facility] 20.0 [facility] ELECTROLYTE Calcium Lvl 8.4 8.5 - 10.5 09/11 [facility] ELECTROLYTE CO2 27 24 - 32 09/11 [facility] ELECTROLYTE Chloride Lvl 108 95 - 109 09/11 [facility] ELECTROLYTE eGFR 130 09/11 <sup>3</sup>R [facility] esult Medical Comment: The Center eGFR is [...] ELECTROLYTE BUN 4 7 - 22 09/11 [facility] ELECTROLYTE Glucose Lvl 82 70 - 99 09/11 <sup>6</sup>I [facility] nterpretive Medical Data: Adult Center reference range values reflect the clinical guidelines
of the [place] [employer]. ELECTROLYTE Sodium Lvl 142 135 - 145 09/11 [facility] ELECTROLYTE Creatinine 0.7 0.5 - 1.4 09/11 [facility] ELECTROLYTE Potassium 3.8 3.5 - 5.1 09/11 [facility] HEMATOLOGY Retic Auto 16.5 0.5 - 1.5 09/11 [facility] HEMATOLOGY RDW 25.5 11.5 - 09/11 [facility] [place] 14.5 /2014 [facility] HEMATOLOGY MPV 8.6 7.4 - 10.4 09/11 /2014 [facility] HEMATOLOGY Platelet 213 133 - 450 09/11 /2014 [facility] HEMATOLOGY Hct 19.8 36.0 - 09/11 [place] 48.0 /2014 [facility] HEMATOLOGY Hgb 6.7 12.0 - 09/11 <sup>9</sup>R [place] 16.0 /2014 [facility] Medical Comment: Center Critical Result(s) called to Lexi Hendrix at 09/11/2014 03:23 by ORDAZ. Read back OK. HEMATOLOGY MCV 97.9 80.0 - 09/11 [place] 98.0 /2014 [facility] HEMATOLOGY MCHC 34.0 32.0 - 09/11 [place] 36.0 /2014 [facility] HEMATOLOGY MCH 33.3 27.0 - 09/11 [place] 31.0 /2014 [facility] HEMATOLOGY WBC X 10x3 14.1 3.7 - 10.4 09/11 /2014 [facility] HEMATOLOGY RBC X 10x6 2.02 4.20 - 09/11 [place] 5.40 /2014 [facility] BLOOD BANK Antibody Positive 1 09/10 <sup>1</sup>R [facility] RESULTS Scrn (09/10/14 8:01 AM) /2014 [facility] Medical Comment: Center 09/10/2014 09:24 [id number]
"Significant Findings of Positive Antibody Screen called to Magan Stinson at 0920 by SI. Read Back OK" BLOOD BANK ABO/Rh O POS 09/10 [facility] RESULTS /2014 [facility] BLOOD BANK Path MEGHAN This 09/10 [facility] RESULTS patient Medical a positive Center Direct [...] concur with the resident's interpretat ion. CPT: 94689-AD BLOOD BANK Path AB Current 09/10 [facility] RESULTS testing Medical shows the [...] concur with the resident's interpretat ion. CPT: 97907-UK BLOOD BANK HX Antigen Le(a) neg 09/10 [place] RESULTS [facility] BLOOD BANK HX Antigen Jk(b) pos 09/10 [place] RESULTS /2014 [facility] BLOOD BANK HX Antigen K neg 09/10 RESULTS /2014 [facility] BLOOD BANK HX Antigen Jk(a) pos 09/10 [facility] [place] RESULTS /2015 Medical Center BLOOD BANK HX Antigen Fy(b) neg 09/10 [facility] [place] RESULTS /2015 [facility] Center BLOOD BANK HX Antigen Fy(a) pos 09/10 [facility] [place] RESULTS /2015 [facility] Center BLOOD BANK HX Antigen C pos 09/10 [place] RESULTS /2015 [facility] Center BLOOD BANK HX Antigen E neg 09/10 [place] RESULTS /2015 [facility] Center BLOOD BANK HX Antigen Cw neg 09/10 [place] RESULTS /2015 [facility] Center BLOOD BANK HX Antigen M pos 09/10 [facility] [place] RESULTS /2015 [facility] Center BLOOD BANK HX Antigen s pos 09/10 [place] RESULTS /2015 [facility] Center BLOOD BANK HX Antigen c neg 09/10 [place] RESULTS /2015 [facility] Center BLOOD BANK HX Antigen N neg 09/10 [place] RESULTS /2014 [facility] Center BLOOD BANK HX Antigen P1 pos 09/10 [place] RESULTS /2015 [facility] Center BLOOD BANK HX Antigen S neg 09/10 [place] RESULTS /2015 [facility] Center BLOOD BANK HX Antigen Le(b) neg 09/10 [place] RESULTS /2015 [facility] Center BLOOD BANK HISTORICAL Anti-S 09/10 [place] RESULTS AB /2014 [facility] BLOOD BANK HISTORICAL Anti-Bg(a) 09/10 [place] RESULTS AB /2014 [facility] BLOOD BANK HISTORICAL Anti-Cw 09/10 [place] RESULTS AB [facility] BLOOD BANK C3 Int Negative 09/10 [place] RESULTS (09/10/14 8:01 AM) /2014 [facility] BLOOD BANK [place] Int See Note 09/10 <sup>2</sup>R [place] RESULTS esult Medical Comment: Center 09/10/2014 12:56 [email or web address]
[place] non reactive with all cells tested. BLOOD BANK MEGHAN Gel Int Positive 09/10 [place] RESULTS (09/10/14 8:01 AM) /2014 [facility] BLOOD BANK AB Int Anti-E 09/10 [place] RESULTS /2015 [facility] BLOOD BANK AB Int Anti-c 09/10 [place] RESULTS /2014 [facility] HEMATOLOGY Hgb 6.3 12.0 - 09/10 <sup>10</sup> [place] 16.0 /2015 Result Medical Comment: Center Critical Result(s) called to JB LONDONO at _09/10/2014 07:45 byMK_. Read back OK. CHEM PANEL LDH 496 98 - 192 09/10 [place] /2014 [facility] ELECTROLYTE AGAP 11.8 10.0 - 09/10 [place] S 20.0 /2014 [facility] ELECTROLYTE eGFR 137 09/10 <sup>4</sup>R [facility] esult Medical Comment: The Center eGFR is [...] Calcium Lvl 8.3 8.5 - 10.5 09/10 [facility] ELECTROLYTE Chloride Lvl 113 95 - 109 09/10 [facility] ELECTROLYTE Sodium Lvl 144 135 - 145 09/10 [facility] 2014 [facility] ELECTROLYTE Glucose Lvl 81 70 - 99 09/10 <sup>7</sup>I [facility] nterpretive Medical Data: Adult Center reference range values reflect the clinical guidelines
of the [place] [employer]. ELECTROLYTE BUN 4 7 - 22 09/10 [facility] ELECTROLYTE Creatinine 0.6 0.5 - 1.4 09/10 [facility] ELECTROLYTE CO2 23 24 - 32 09/10 [facility] ELECTROLYTE Potassium 3.8 3.5 - 5.1 09/10 [facility] HEMATOLOGY Hgb 6.2 12.0 - 09/10 <sup>11</sup> [facility] 16. Result Medical Comment: Center Critical Result(s) called to Amy Fraga at 09/10/2014 06:07 by negrita. Read back OK. HEMATOLOGY WBC 15.9 3.7 - 10.4 09/10 2014 [facility] HEMATOLOGY RBC 1.85 4.20 - 09/10 [facility] [place] 5.40 /2014 [facility] HEMATOLOGY Hct 18.2 36.0 - 09/10 [place] 48.0 /2014 [facility] HEMATOLOGY MCV 98.3 80.0 - 09/10 [place] 98.0 [facility] HEMATOLOGY RDW 25.4 11.5 - 09/10 [place] 14.5 /2014 [facility] HEMATOLOGY Platelet 190 133 - 450 09/10 [facility] HEMATOLOGY MCH 33.6 27.0 - 09/10 [place] 31.0 /2014 [facility] HEMATOLOGY MCHC 34.2 32.0 - 09/10 [place] 36.0 [facility] HEMATOLOGY MPV 8.5 7.4 - 10.4 09/10 [facility] HEMATOLOGY Retic Auto 15.8 0.5 - 1.5 09/10 [facility] ELECTROLYTE AGAP 13.7 10.0 - 09/09 [facility] S 20.0 [facility] ELECTROLYTE eGFR 96 09/09 <sup>5</sup>R esult [...] Calcium Lvl 9.1 8.5 - 10.5 09/09 [facility] ELECTROLYTE Potassium 3.7 3.5 - 5.1 09/09 [facility] S Lvl [facility] ELECTROLYTE Sodium Lvl 142 135 - 145 09/09 [facility] ELECTROLYTE Glucose Lvl 106 70 - 99 09/09 <sup>8</sup>I [facility] nterpretive Medical Data: Adult Center reference range values reflect the clinical guidelines
of the [place] [employer]. ELECTROLYTE Creatinine 0.9 0.5 - 1.4 09/09 [facility] S Lvl /2014 [facility] ELECTROLYTE BUN 6 7 - 22 09/09 [facility] S /2014 [facility] ELECTROLYTE CO2 26 24 - 32 09/09 [facility] S /2014 [facility] ELECTROLYTE Chloride Lvl 106 95 - 109 09/09 [facility] S /2014 [facility] HEMATOLOGY Sickle Cell Slight 09/09 [facility] /2014 [facility] HEMATOLOGY Schistocyte 1-3 per HPF None Seen 09/09 [facility] (09/09/14 2:13 AM) /2014 [facility] HEMATOLOGY Tear Cell Slight 09/09 [facility] HEMATOLOGY Target Cell Moderate [facility] (09/09/14 2:13 AM) [place] HEMATOLOGY Polychrom Slight 09/09 [facility] /2014 [facility] HEMATOLOGY Plt Morph Normal 09/09 [facility] (09/09/14 2:13 AM) /2014 [facility] HEMATOLOGY Tot Cell Ct 100 09/09 [facility] /2014 [facility] HEMATOLOGY Bands 0.0 0.0 - 11.0 09/09 [facility] /2014 [facility] HEMATOLOGY Segs 49.0 45.0 - 09/09 [facility] 75.0 [facility] HEMATOLOGY Macrocyte 1+ None Seen 09/09 [facility] *ABN* /2014 [facility] (09/09/14 2:13 AM) [place] HEMATOLOGY Anisocyte 1+ None Seen 09/09 [facility] *ABN* /2014 [facility] (09/09/14 2:13 AM) [place] HEMATOLOGY NRBC 2 09/09 [facility] HEMATOLOGY Atypical 0.0 <=0.0 % 09/09 [facility] Lymphs [facility] HEMATOLOGY Eosinophils 3.0 0.0 - 4.0 09/09 [facility] /2014 [facility] HEMATOLOGY Monocytes 14.0 2.0 - 12.0 09/09 /2014 [facility] HEMATOLOGY Lymphocytes 34.0 20.0 - 09/09 [place] 40.0 [facility] HEMATOLOGY Eosinophils 0.6 0.0 - 0.5 09/09 [facility] # /2014 [facility] HEMATOLOGY Monocytes # 2.7 0.0 - 0.8 09/09 /2014 [facility] HEMATOLOGY Lymphocytes 6.5 1.0 - 5.5 09/09 [facility] [place] # /2014 [facility] HEMATOLOGY Segs-Bands # 9.3 1.5 - 8.1 09/09 /2014 [facility] HEMATOLOGY Retic Auto 16.6 0.5 - 1.5 09/09 [facility] HEMATOLOGY MPV 8.3 7.4 - 10.4 09/09 [facility] HEMATOLOGY RDW 25.8 11.5 - 09/09 14.5 [facility] HEMATOLOGY MCHC 34.3 32.0 - 09/09 [place] 36.0 /2014 [facility] HEMATOLOGY Platelet 220 133 - 450 09/09 /2014 [facility] HEMATOLOGY MCV 99.8 80.0 - 09/09 [place] 98.0 /2014 [facility] HEMATOLOGY Hct 22.7 36.0 - 09/09 48.0 [facility] HEMATOLOGY MCH 34.2 27.0 - 09/09 [place] 31.0 /2014 [facility] HEMATOLOGY WBC 19.0 3.7 - 10.4 09/09 [facility] HEMATOLOGY RBC 2.28 4.20 - 09/09 [place] 5.40 /2015 [facility] Pathology Reports No Data Provided for This Section Diagnostic Reports No Data Provided for This Section Consultation Notes No Data Provided for This Section Discharge Summaries No Data Provided for This Section History and Physicals No Data Provided for This Section Vital Signs Vital Sign Value Date Comments Source Respitory Rate 18 09/12/2014 [facility] Systolic (mm Hg) 120 09/12/2014 [facility] Heart Rate 80 09/12/2014 [facility] Diastolic (mm Hg) 80 09/12/2014 [facility] Temperature Oral (F) 98.0 F 09/12/2014 [facility] Diastolic (mm Hg) 82 09/11/2014 [facility] Respitory Rate 18 09/11/2014 [facility] Systolic (mm Hg) 132 09/11/2014 [facility] Heart Rate 82 09/11/2014 [facility] Temperature Oral (F) 98.4 F 09/11/2014 [facility] Respitory Rate 16 09/11/2014 [facility] Heart Rate 86 09/11/2014 [facility] Systolic (mm Hg) 120 09/11/2014 [facility] Diastolic (mm Hg) 86 09/11/2014 [facility] Temperature Oral (F) 98.1 F 09/11/2014 [facility] Weight 70.591 09/10/2014 [facility] Weight 68.182 09/09/2014 [facility] BMI Calculated 26.63 09/09/2014 [facility] Height 160.02 cm 09/09/2014 [facility] Weight 70 09/09/2014 [facility] Height 160.02 cm 09/09/2014 [facility] BMI Calculated 27.34 09/09/2014 [facility] Encounters Location Location Encounter Encounter Reason Attending ADM DC Status Source Details Type Number For Provider Date Date Visit [facility] Inpatient [id number] Josiane 09/09 09/12 [facility] [place] [facility]2014 [facility] Procedures No Data Provided for This Section Assessment and Plan Assessment and Plan Date Source Extracted from:Title: Discharge Summary 09/12/2014 [facility] Author: Josiane Oliva MD Date: 09/12/14 Discharge [...] presented with pain crisis. She required dilaudid LIVESTOCK NUTRITIONIST bolusdoses in addition to PO long acting narcotic medication and NSAID, Tylenol. She wa s given opana 20mg q12h, PRN oxycodone and Dilaudid LIVESTOCK NUTRITIONIST 0.2mg bolus q 10min lockout. On day o discharge, she felt she could manage her pain with oral medication at home and wsa discharged. Procedures: none Consultations: none Discharge medications: see discharge medication reconciliation form Discharge condition: good Followup: with her head waiter/waitress banquet as outpatient Time spent on discharge: 40 [...] Patient denies any triggers. She saw her head waiter/waitress banquet sunday: white count 19, hg 7.4 which [...] Medical History: Resolved CVA - Cerebrovascular accident ([id number]): Resolved. TIA ([id number]): Resolved. Sickle cell anemia ([id number]): Resolved. Aplastic anemia ([id number]): Resolved. Family History: No family history items [...] unchanged from last sunday office visit with head waiter/waitress banquet Dr. Guaman; xray negative; UA pending #acute pain: cont IV dialudid prn q3hrs, cont home oxymorphone ; cont IV fluids #h/o HTN: during sickle crisis, monitor BP regular diet Addendum by Ha Mann MD on 09/09/2014 06:24 correction: oxymorphone is 30mg q12. Plan of Care No Data Provided for This Section Social History Social History Date Source Social History TypeResponse 09/09/2014 [facility] Alcohol Use: Never Smoking Status Never smoker, Exposure to Tobacco Smoke None, Cigarette Smoking Last 365 Days No, Reg Smoking Cessation Counseling Yes Family History No Data Provided for This Section Advance Directives No Data Provided for This Section Functional Status No Data Provided for This Section
--- OUTSIDE RECORDS SUMMARY | 2019-03-15 23:46 | XMS REPORT ---
:1980 Author Organization [facility] Address [address] [place] [address] Care Team Providers Name Role Phone TALISHA SORENSEN Unavailable Unavailable VIRY CARRIZALES Unavailable Unavailable [...] FINAL REPORT PATIENT ID: PE TEST DESIGN [id number] INDICATION: Acute chest pain. COMPARISON:Chest radiograph January [...] MDReport Verified Date/Time: 01/08/2019 09:54:01 Reading Location: [address] Body Reading Room TINE KINASE (CK) 2019-01-08 02:25:00 Test Item Value Reference Range Comments CREATINE KINASE TOTAL (BEAKER) (test vrbc=362) 7 U/L 29-200 TROPONIN [id number] 01:38:00 Test Item Value Reference Range Comments TROPONIN I (BEAKER) (test akwh=064) < ng/mL 0.00-0.03 Troponin I (TnI) levels [...] acidosis, acute neurological disease, and persistent tachyarrhythmia.TROPONIN [id number] 19:01:00 Test Item Value Reference Range Comments TROPONIN I (BEAKER) (test purk=421) < ng/mL 0.00-0.03 Troponin I (TnI) levels [...] Range Comments CREATINE KINASE TOTAL (BEAKER) (test ekbv=539) 11 U/L 29-200 RAD, CHEST, 1 VIEW, NON [id number] 08:40:00Reason for exam:->Shortness of BreathShould this be [...] Mckenzie Yeeport Verified Date/Time: 01/07/201908:40:21 Reading Location: [facility] Radiology Reading Room CBC W/PLT COUNT & AUTO [id number] 12: 52:00 Test Item Value Reference Range Comments WHITE BLOOD CELL COUNT (BEAKER) (test voiw=714) 20.2 K/ L 3.5-10.5 RED BLOOD CELL COUNT (BEAKER) (test gsnx=271) 2.32 M/ L 3.93-5.22 HEMOGLOBIN (BEAKER) (test lops=492) 7.9 GM/DL 11.2-15.7 HEMATOCRIT (BEAKER) (test ozqb=706) 24.5 % 34.1-44.9 MEAN CORPUSCULAR VOLUME (BEAKER) (test pihc=341) 105.6 fL 79.4-94.8 MEAN CORPUSCULAR HEMOGLOBIN (BEAKER) (test 34.1 pg 25.6-32.2 qmpr=985) MEAN CORPUSCULAR HEMOGLOBIN CONC (BEAKER) (test 32.2 GM/DL 32.2-35.5 ancn=177) RED CELL DISTRIBUTION WIDTH (BEAKER) (test 22.3 % 11.7-14.4 rmsc=184) PLATELET COUNT (BEAKER) (test pewb=264) 219 K/CU MM 150-450 MEAN PLATELET VOLUME (BEAKER) (test pbmv=655) 11.6 fL 9.4-12.3 NUCLEATED RED BLOOD CELLS (BEAKER) (test 7 /100 WBC 0-0 nxpa=926) (CELLAVISION MANUAL DIFF)2019-01-06 12:52:00 Test Item Value Reference Range Comments NEUTROPHILS - REL (CELLAVISION)(BEAKER) (test 57 % wcfu=7637) LYMPHOCYTES - REL (CELLAVISION)(BEAKER) (test 19 % zncl=1791) MONOCYTES - REL (CELLAVISION)(BEAKER) (test 18 % uesq=6865) EOSINOPHILS - REL (CELLAVISION)(BEAKER) (test 6 % wdqw=8232) NEUTROPHILS - ABS (CELLAVISION)(BEAKER) (test 11.51 K/ul 1.56-6.13 xrof=5400) LYMPHOCYTES - ABS (CELLAVISION)(BEAKER) (test 3.84 K/ul 1.18-3.74 okck=8327) MONOCYTES - ABS (CELLAVISION)(BEAKER) (test 3.64 K/uL 0.24-0.36 tipb=7238) EOSINOPHILS - ABS (CELLAVISION)(BEAKER) (test 1.21 K/uL 0.04-0.36 stxz=6794) TOTAL COUNTED (BEAKER) (test ydyl=1943) 100 MANUAL NRBC PER 100 CELLS (BEAKER) (test 9 /100 WBC 0-0 bbqw=9001) SMUDGE CELLS (BEAKER) (test zorj=4613) Present GIANT PLATELETS (BEAKER) (test brrf=765) Present POLYCHROMATOPHILLIC RBCS(BEAKER) (test fipu=364) 2+ moderate ANISOCYTOSIS (BEAKER) (test gmxy=386) 2+ moderate MACROCYTES (BEAKER) (test seqq=009) 2+ moderate SICKLE CELLS (BEAKER) (test savw=042) 1+ few ARTIFACT (CELLAVISION)(BEAKER) (test ysmd=5427) Present PLATELET CONCENTRATION (CELLAVISION)(BEAKER) Adequate (test kbbe=5116) Received comment: User comments: Slide comments:BASIC METABOLIC [id number] 07:32:00 Test Item Value Reference Range Comments SODIUM (BEAKER) (test 140 meq/L 136-145 tklo=089) POTASSIUM (BEAKER) (test 4.2 meq/L 3.5-5.1 qtqf=825) CHLORIDE (BEAKER) (test 96 meq/L 98-107 hkqz=937) CO2 (BEAKER) (test 34 meq/L 22-29 rgeh=055) BLOOD UREA NITROGEN 10 mg/dL 7-21 (BEAKER) (test picm=637) CREATININE (BEAKER) (test 0.58 mg/dL 0.57-1.25 anbt=249) GLUCOSE RANDOM (BEAKER) 95 mg/dL 70-105 (test gkmi=148) CALCIUM (BEAKER) (test 9.6 mg/dL 8.4-10.2 qcec=352) EGFR (BEAKER) (test 140 mL/min/1.73 sq m ESTIMATED GFR IS NOT wqjj=7938) ACCURATE CREATININE CLEARANCE IN PREDICTING GLOMERULAR FILTRATION RATE. ESTIMATED GFR IS NOT APPLICABLE FOR DIALYSIS PATIENTS. Specimen slightly ictericCBC W/PLT COUNT & AUTO [id number] 06:02 :00 Test Item Value Reference Range Comments WHITE BLOOD CELL COUNT (BEAKER) (test xjea=155) 20.2 K/ L 3.5-10.5 RED BLOOD CELL COUNT (BEAKER) (test fzre=475) 2.24 M/ L 3.93-5.22 HEMOGLOBIN (BEAKER) (test fhxl=019) 7.5 GM/DL 11.2-15.7 HEMATOCRIT (BEAKER) (test byiy=282) 23.3 % 34.1-44.9 MEAN CORPUSCULAR VOLUME (BEAKER) (test ijtm=877) 104.0 fL 79.4-94.8 MEAN CORPUSCULAR HEMOGLOBIN (BEAKER) (test 33.5 pg 25.6-32.2 obkz=198) MEAN CORPUSCULAR HEMOGLOBIN CONC (BEAKER) (test 32.2 GM/DL 32.2-35.5 ccok=311) RED CELL DISTRIBUTION WIDTH (BEAKER) (test 23.4 % 11.7-14.4 kjcx=600) PLATELET COUNT (BEAKER) (test xppx=671) 215 K/CU MM 150-450 MEAN PLATELET VOLUME (BEAKER) (test zclz=631) 11.2 fL 9.4-12.3 NUCLEATED RED BLOOD CELLS (BEAKER) (test 9 /100 WBC 0-0 obat=708) NEUTROPHILS RELATIVE PERCENT (BEAKER) (test 54 % ozyo=603) LYMPHOCYTES RELATIVE PERCENT (BEAKER) (test 22 % zrmg=500) MONOCYTES RELATIVE PERCENT (BEAKER) (test 18 % lurs=079) EOSINOPHILS RELATIVE PERCENT (BEAKER) (test 5 % qsjh=277) BASOPHILS RELATIVE PERCENT (BEAKER) (test 0 % qwzn=791) NEUTROPHILS ABSOLUTE COUNT (BEAKER) (test 10.96 K/ L 1.56-6.13 ysoe=634) LYMPHOCYTES ABSOLUTE COUNT (BEAKER) (test 4.39 K/ L 1.18-3.74 osgb=224) MONOCYTES ABSOLUTE COUNT (BEAKER) (test 3.61 K/ L 0.24-0.36 tjom=755) EOSINOPHILS ABSOLUTE COUNT (BEAKER) (test 1.08 K/ L 0.04-0.36 jibo=180) BASOPHILS ABSOLUTE COUNT (BEAKER) (test 0.07 K/ L 0.01-0.08 jzte=802) IMMATURE GRANULOCYTES-RELATIVE PERCENT (BEAKER) 1 % 0-1 (test crlr=0661) BASIC METABOLIC [id number] 06:02:00 Test Item Value Reference Range Comments SODIUM (BEAKER) (test 139 meq/L 136-145 ypde=929) POTASSIUM (BEAKER) (test 4.3 meq/L 3.5-5.1 zbqy=243) CHLORIDE (BEAKER) (test 98 meq/L 98-107 pphd=477) CO2 (BEAKER) (test 36 meq/L 22-29 foww=058) BLOOD UREA NITROGEN 9 mg/dL 7-21 (BEAKER) (test kcob=531) CREATININE (BEAKER) (test 0.56 mg/dL 0.57-1.25 gklr=513) GLUCOSE RANDOM (BEAKER) 100 mg/dL 70-105 (test ygkc=872) CALCIUM (BEAKER) (test 9.5 mg/dL 8.4-10.2 zxax=758) EGFR (BEAKER) (test 146 mL/min/1.73 sq m ESTIMATED GFR IS NOT ohqv=4645) ACCURATE CREATININE CLEARANCE IN PREDICTING GLOMERULAR FILTRATION RATE. ESTIMATED GFR IS NOT APPLICABLE FOR DIALYSIS PATIENTS. Specimen slightly ictericBASIC METABOLIC [id number] 09:02:00 Test Item Value Reference Range Comments SODIUM (BEAKER) (test 141 meq/L 136-145 imws=279) POTASSIUM (BEAKER) (test 4.4 meq/L 3.5-5.1 yibf=234) CHLORIDE (BEAKER) (test 101 meq/L 98-107 jxmq=903) CO2 (BEAKER) (test 32 meq/L 22-29 nqio=422) BLOOD UREA NITROGEN 9 mg/dL 7-21 (BEAKER) (test bbma=746) CREATININE (BEAKER) (test 0.54 mg/dL 0.57-1.25 jcgk=524) GLUCOSE RANDOM (BEAKER) 102 mg/dL 70-105 (test ryuv=966) CALCIUM (BEAKER) (test 9.6 mg/dL 8.4-10.2 sqqb=254) EGFR (BEAKER) (test 152 mL/min/1.73 sq m ESTIMATED GFR IS NOT mxkz=8611) ACCURATE CREATININE CLEARANCE IN PREDICTING GLOMERULAR FILTRATION RATE. ESTIMATED GFR IS NOT APPLICABLE FOR DIALYSIS PATIENTS. Specimen slightly ictericCBC W/PLT COUNT & AUTO [id number] 07:17 :00 Test Item Value Reference Range Comments WHITE BLOOD CELL COUNT (BEAKER) (test hiwa=184) 19.8 K/ L 3.5-10.5 RED BLOOD CELL COUNT (BEAKER) (test cqnm=147) 2.35 M/ L 3.93-5.22 HEMOGLOBIN (BEAKER) (test svim=975) 7.7 GM/DL 11.2-15.7 HEMATOCRIT (BEAKER) (test pkgy=845) 24.3 % 34.1-44.9 MEAN CORPUSCULAR VOLUME (BEAKER) (test dlmx=621) 103.4 fL 79.4-94.8 MEAN CORPUSCULAR HEMOGLOBIN (BEAKER) (test 32.8 pg 25.6-32.2 vaez=010) MEAN CORPUSCULAR HEMOGLOBIN CONC (BEAKER) (test 31.7 GM/DL 32.2-35.5 teib=395) RED CELL DISTRIBUTION WIDTH (BEAKER) (test 24.4 % 11.7-14.4 vpnj=461) PLATELET COUNT (BEAKER) (test gjlm=424) 220 K/CU MM 150-450 MEAN PLATELET VOLUME (BEAKER) (test ddlh=529) 10.9 fL 9.4-12.3 NUCLEATED RED BLOOD CELLS (BEAKER) (test 14 /100 WBC 0-0 enrb=843) (CELLAVISION MANUAL DIFF)2019-01-04 07:17:00 Test Item Value Reference Range Comments NEUTROPHILS - REL (CELLAVISION)(BEAKER) (test 62 % nzfb=1562) LYMPHOCYTES - REL (CELLAVISION)(BEAKER) (test 25 % ckng=1853) MONOCYTES - REL (CELLAVISION)(BEAKER) (test 8 % abmt=3096) EOSINOPHILS - REL (CELLAVISION)(BEAKER) (test 3 % rtpx=8146) BANDS - REL (CELLAVISION)(BEAKER) (test 1 % 0-10 nrmn=9232) NEUTROPHILS - ABS (CELLAVISION)(BEAKER) (test 12.28 K/ul 1.56-6.13 ehaa=5044) LYMPHOCYTES - ABS (CELLAVISION)(BEAKER) (test 4.95 K/ul 1.18-3.74 jsse=3011) MONOCYTES - ABS (CELLAVISION)(BEAKER) (test 1.58 K/uL 0.24-0.36 qnme=9645) EOSINOPHILS - ABS (CELLAVISION)(BEAKER) (test 0.59 K/uL 0.04-0.36 dotj=0328) BANDS - ABS (CELLAVISION)(BEAKER) (test 0.20 K/uL 0.00-0.80 gxkl=3582) TOTAL COUNTED (BEAKER) (test xtgl=9620) 100 MANUAL NRBC PER 100 CELLS (BEAKER) (test 20 /100 WBC 0-0 fdmb=7746) RBC MORPHOLOGY (BEAKER) (test yfwl=854) Normal WBC MORPHOLOGY (BEAKER) (test ekwy=711) Normal PLT MORPHOLOGY (BEAKER) (test nlxd=472) Normal GIANT PLATELETS (BEAKER) (test rkaw=813) Present LARGE PLT(BEAKER) (test weuy=7317) Present POLYCHROMATOPHILLIC RBCS(BEAKER) (test wsml=391) 2+ moderate HYPOCHROMIA (BEAKER) (test nkjb=349) 2+ moderate ANISOCYTOSIS (BEAKER) (test sivf=040) 2+ moderate MICROCYTES (BEAKER) (test trxo=172) 1+ few MACROCYTES (BEAKER) (test ajmh=423) 2+ moderate POIKILOCYTES (BEAKER) (test mwjt=550) 3+ many TARGET CELLS (BEAKER) (test oktb=935) 2+ moderate SCHISTOCYTES (BEAKER) (test uokm=248) 1+ few SICKLE CELLS (BEAKER) (test veoe=390) 3+ many ELLIPTOCYTES (BEAKER) (test tvun=574) 1+ few OVALOCYTES (BEAKER) (test foku=160) 1+ few BASOPHILIC STIPPLING (BEAKER) (test tbze=682) Present ARTIFACT (CELLAVISION)(BEAKER) (test gxhj=6372) Present PAPPENHEIMER (CELLAVISION)(BEAKER) (test 1+ few zahe=3191) PLATELET CONCENTRATION (CELLAVISION)(BEAKER) Adequate (test virx=6912) Received comment: User comments: Slide comments:CBC WITH PLATELET COUNT + MANUAL [id number] 10:36:00 Test Item Value Reference Range Comments WHITE BLOOD CELL COUNT 22.9 K/ L 3.5-10.5 (BEAKER) (test oxlc=904) RED BLOOD CELL COUNT (BEAKER) 2.28 M/ L 3.93-5.22 (test zoaj=597) HEMOGLOBIN (BEAKER) (test 7.7 GM/DL 11.2-15.7 yyek=452) HEMATOCRIT (BEAKER) (test 23.2 % 34.1-44.9 vpic=790) MEAN CORPUSCULAR VOLUME 101.8 fL 79.4-94.8 Discordant results compared (BEAKER) (test ipan=604) to previous result; clinical correlation required. MEAN CORPUSCULAR HEMOGLOBIN 33.8 pg 25.6-32.2 (BEAKER) (test nvrr=402) MEAN CORPUSCULAR HEMOGLOBIN 33.2 GM/DL 32.2-35.5 CONC (BEAKER) (test xckk=904) RED CELL DISTRIBUTION WIDTH 23.3 % 11.7-14.4 (BEAKER) (test qkva=243) PLATELET COUNT (BEAKER) (test 251 K/CU MM 150-450 afyj=622) MEAN PLATELET VOLUME (BEAKER) 10.7 fL 9.4-12.3 (test iolu=848) NUCLEATED RED BLOOD CELLS 52 /100 WBC 0-0 (BEAKER) (test ujoe=343) (CELLAVISION MANUAL DIFF)2019-01-01 10:36:00 Test Item Value Reference Range Comments NEUTROPHILS - REL (CELLAVISION)(BEAKER) (test 56 % pnyy=2387) LYMPHOCYTES - REL (CELLAVISION)(BEAKER) (test 30 % azob=3868) MONOCYTES - REL (CELLAVISION)(BEAKER) (test 10 % twxh=3145) EOSINOPHILS - REL (CELLAVISION)(BEAKER) (test 3 % sawu=6750) ATYPICAL LYMPHOCYTES - REL (CELLAVISION)(BEAKER) 2 % 0-0 (test ppdj=3193) NEUTROPHILS - ABS (CELLAVISION)(BEAKER) (test 12.82 K/ul 1.56-6.13 eorj=0026) LYMPHOCYTES - ABS (CELLAVISION)(BEAKER) (test 6.87 K/ul 1.18-3.74 xzuk=6128) MONOCYTES - ABS (CELLAVISION)(BEAKER) (test 2.29 K/uL 0.24-0.36 rtsd=1986) EOSINOPHILS - ABS (CELLAVISION)(BEAKER) (test 0.69 K/uL 0.04-0.36 rzuq=7541) ATYPICAL LYMPHOCYTES - ABS (CELLAVISION)(BEAKER) 0.46 K/uL 0.00-0.00 (test ozze=6414) TOTAL COUNTED (BEAKER) (test uppe=9543) 100 MANUAL NRBC PER 100 CELLS (BEAKER) (test 61 /100 WBC 0-0 qbjd=6496) WBC MORPHOLOGY (BEAKER) (test vchv=064) Normal PLT MORPHOLOGY (BEAKER) (test ynhr=518) Normal POLYCHROMATOPHILLIC RBCS(BEAKER) (test tlua=682) 3+ many HYPOCHROMIA (BEAKER) (test wpqz=025) 2+ moderate TARGET CELLS (BEAKER) (test kouy=825) 2+ moderate SICKLE CELLS (BEAKER) (test hxju=411) 2+ moderate MATTHEWS-JOLLY BODIES (BEAKER) (test gpkl=744) 1+ few ARTIFACT (CELLAVISION)(BEAKER) (test gyju=8599) Present PLATELET CONCENTRATION (CELLAVISION)(BEAKER) Adequate (test mjef=0914) Received comment: User comments: Slide comments:BASIC METABOLIC [id number] 08:47:00 Test Item Value Reference Range Comments SODIUM (BEAKER) (test 140 meq/L 136-145 ntml=784) POTASSIUM (BEAKER) (test 4.2 meq/L 3.5-5.1 hscf=458) CHLORIDE (BEAKER) (test 109 meq/L 98-107 sbzs=658) CO2 (BEAKER) (test 27 meq/L 22-29 rupe=395) BLOOD UREA NITROGEN 10 mg/dL 7-21 (BEAKER) (test mkrs=372) CREATININE (BEAKER) (test 0.65 mg/dL 0.57-1.25 yblq=628) GLUCOSE RANDOM (BEAKER) 87 mg/dL 70-105 (test hpnh=114) CALCIUM (BEAKER) (test 8.9 mg/dL 8.4-10.2 grzt=568) EGFR (BEAKER) (test 123 mL/min/1.73 sq m ESTIMATED GFR IS NOT yxge=7484) ACCURATE CREATININE CLEARANCE IN PREDICTING GLOMERULAR FILTRATION RATE. ESTIMATED GFR IS NOT APPLICABLE FOR DIALYSIS PATIENTS. Specimen slightly ictericHEMOGLOBIN AND [id number] 12:05:00 Test Item Value Reference Range Comments HEMOGLOBIN (BEAKER) (test qpul=686) 5.5 GM/DL 11.2-15.7 HEMATOCRIT (BEAKER) (test csgv=199) 17.1 % 34.1-44.9 CBC W/PLT COUNT & AUTO [id number] 09:09:00 Test Item Value Reference Range Comments WHITE BLOOD CELL COUNT (BEAKER) (test rqda=766) 32.6 K/ L 3.5-10.5 RED BLOOD CELL COUNT (BEAKER) (test zeth=231) 1.71 M/ L 3.93-5.22 HEMOGLOBIN (BEAKER) (test yuwo=668) 5.9 GM/DL 11.2-15.7 HEMATOCRIT (BEAKER) (test kzog=207) 18.5 % 34.1-44.9 MEAN CORPUSCULAR VOLUME (BEAKER) (test xijz=004) 108.2 fL 79.4-94.8 MEAN CORPUSCULAR HEMOGLOBIN (BEAKER) (test 34.5 pg 25.6-32.2 njuz=952) MEAN CORPUSCULAR HEMOGLOBIN CONC (BEAKER) (test 31.9 GM/DL 32.2-35.5 whvu=366) RED CELL DISTRIBUTION WIDTH (BEAKER) (test 27.3 % 11.7-14.4 kzrm=529) PLATELET COUNT (BEAKER) (test uzfg=917) 245 K/CU MM 150-450 MEAN PLATELET VOLUME (BEAKER) (test ozgx=810) 11.0 fL 9.4-12.3 NUCLEATED RED BLOOD CELLS (BEAKER) (test 18 /100 WBC 0-0 vwsw=383) (CELLAVISION MANUAL DIFF)2018-12-31 09:09:00 Test Item Value Reference Range Comments NEUTROPHILS - REL (CELLAVISION)(BEAKER) (test 61 % jusx=4588) LYMPHOCYTES - REL (CELLAVISION)(BEAKER) (test 30 % ywqg=1385) MONOCYTES - REL (CELLAVISION)(BEAKER) (test 9 % idgg=2475) BANDS - REL (CELLAVISION)(BEAKER) (test 1 % 0-10 iwdb=3843) NEUTROPHILS - ABS (CELLAVISION)(BEAKER) (test 19.89 K/ul 1.56-6.13 vqrd=0833) LYMPHOCYTES - ABS (CELLAVISION)(BEAKER) (test 9.78 K/ul 1.18-3.74 lzwt=6022) MONOCYTES - ABS (CELLAVISION)(BEAKER) (test 2.93 K/uL 0.24-0.36 jxkt=4087) BANDS - ABS (CELLAVISION)(BEAKER) (test 0.33 K/uL 0.00-0.80 ubno=4180) TOTAL COUNTED (BEAKER) (test qamy=0325) 100 MANUAL NRBC PER 100 CELLS (BEAKER) (test 21 /100 WBC 0-0 wvpm=1230) WBC MORPHOLOGY (BEAKER) (test oqns=772) Normal PLT MORPHOLOGY (BEAKER) (test taqq=366) Normal POLYCHROMATOPHILLIC RBCS(BEAKER) (test sqkq=666) 3+ many HYPOCHROMIA (BEAKER) (test jycp=559) 2+ moderate TARGET CELLS (BEAKER) (test chiz=347) 2+ moderate SICKLE CELLS (BEAKER) (test gols=248) 2+ moderate MATTHEWS-JOLLY BODIES (BEAKER) (test bpiy=859) 1+ few ARTIFACT (CELLAVISION)(BEAKER) (test wnsv=1039) Present PLATELET CONCENTRATION (CELLAVISION)(BEAKER) Adequate (test mdmj=2301) Received comment: User comments: Slide comments:BASIC METABOLIC [id number] 06:17:00 Test Item Value Reference Range Comments SODIUM (BEAKER) (test 140 meq/L 136-145 gcwl=893) POTASSIUM (BEAKER) (test 4.6 meq/L 3.5-5.1 agdt=574) CHLORIDE (BEAKER) (test 112 meq/L 98-107 nwxx=825) CO2 (BEAKER) (test 20 meq/L 22-29 cdnr=970) BLOOD UREA NITROGEN 13 mg/dL 7-21 (BEAKER) (test agtd=126) CREATININE (BEAKER) (test 0.76 mg/dL 0.57-1.25 ageo=142) GLUCOSE RANDOM (BEAKER) 97 mg/dL 70-105 (test heaz=597) CALCIUM (BEAKER) (test 9.3 mg/dL 8.4-10.2 mtjk=800) EGFR (BEAKER) (test 103 mL/min/1.73 sq m ESTIMATED GFR IS NOT boog=4918) ACCURATE CREATININE CLEARANCE IN PREDICTING GLOMERULAR FILTRATION RATE. ESTIMATED GFR IS NOT APPLICABLE FOR DIALYSIS PATIENTS. Specimen slightly ictericRETIC COUNT (AUTOMATED)2018-12-04 07:18:00 Test Item Value Reference Range Comments RETIC COUNT (AUTOMATED) (test code=RETICA) 13.5 % 0.3-2.3 COMPREHENSIVE METABOLIC [id number] 14:26:00 Test Item Value Reference Range Comments [...] 169 IUnit/L 20-125 (test code=ALKP) CBC W/AUTO [id number] 14:15:00 Test Item Value Reference Range Comments [...] MANUAL DIFF REQUIRED (test code=MDIFF) YES WBC [id number] 14:15:00 Test Item Value Reference Range Comments [...] (test code=RETICA) 18.7 % 0.3-2.3 BASIC METABOLIC [id number] 07:41:00 Test Item Value Reference Range Comments [...] (test code=CA) 8.8 mg/dL 8.0-10.5 CBC W/AUTO [id number] 06:18:00 Test Item Value Reference Range Comments [...] (AUTOMATED) (test code=RETICA) % 0.3-2.3 CBC W/AUTO [id number] 06:18:00 Test Item Value Reference Range Comments [...] MANUAL DIFF REQUIRED (test code=MDIFF) YES WBC [id number] 06:18:00 Test Item Value Reference Range Comments ANISOCYTOSIS (test code=ANISO) PLATELET ESTIMATE (test code=PLTEST) THOUSAND ADEQUATE RETIC COUNT (AUTOMATED)2018-12-03 06:18:00 Test Item Value Reference Range Comments RETIC COUNT (AUTOMATED) (test code=RETICA) 18.7 % 0.3-2.3 CBC W/AUTO [id number] 06:18:00 Test Item Value Reference Range Comments [...] MANUAL DIFF REQUIRED (test code=MDIFF) YES WBC [id number] 06:18:00 Test Item Value Reference Range Comments ANISOCYTOSIS (test code=ANISO) PLATELET ESTIMATE (test code=PLTEST) THOUSAND ADEQUATE RETIC COUNT (AUTOMATED)2018-12-03 06:18:00 Test Item Value Reference Range Comments RETIC COUNT (AUTOMATED) (test code=RETICA) 18.7 % 0.3-2.3 CBC W/AUTO [id number] 13:36:00 Test Item Value Reference Range Comments [...] MANUAL DIFF REQUIRED (test code=MDIFF) YES WBC [id number] 13:36:00 Test Item Value Reference Range Comments [...] 21.8 % 0.3-2.3 - NM BONE 3 [id number] 13:05:00 FAX: Shankar Odell I [place]: [facility]: [facility] FAX: Yoly Falcon MD [phone] ---- Name: OSWALDMILADKEON [facility] : 1980 Age/S: 38/F [address] [place] [address] Unit #: [id number] Loc: [address] [address] Phys: Yoly Kang MD Acct: [id number] Dis Date: Status: ADM IN PHONE #: [phone] Exam Date: 12/02/2018 1059 FAX #: [phone] Reason: OM RT FOOT EXAMS: CPT CODE: [id number] NM BONE 3 PHASE [id number] TRIPLE PHASEBONE SCAN: HISTORY: Right foot osteomyelitis. [...] Signed by Wade Cardona on 12/02/2018 at 7925 Reported and signed by: Jones Cardona M.D. CC: Shankar Persaud MD; Yoly Kang MD Technologist: BALAJI Priest (N)(CT);... Trnscrd Date /Time/By: 12/02/2018 (4822) : By: [facility] Orig Print D/T: S: 2018 (1689) PAGE 1 Signed ReportCBC W/AUTO [id number] 11:57:00 Test Item Value Reference Range Comments [...] MANUAL DIFF REQUIRED (test code=MDIFF) YES WBC [id number] 11:57:00 Test Item Value Reference Range Comments [...] (AUTOMATED) (test code=RETICA) % 0.3-2.3 CBC W/AUTO [id number] 11:52:00 Test Item Value Reference Range Comments [...] MANUAL DIFF REQUIRED (test code=MDIFF) YES WBC [id number] 11:52:00 Test Item Value Reference Range Comments ANISOCYTOSIS (test code=ANISO) PLATELET ESTIMATE (test code=PLTEST) THOUSAND ADEQUATE RETIC COUNT (AUTOMATED)2018-12-02 11:52:00 Test Item Value Reference Range Comments RETIC COUNT (AUTOMATED) (test code=RETICA) % 0.3-2.3 CBC W/AUTO [id number] 11:52:00 Test Item Value Reference Range Comments [...] MANUAL DIFF REQUIRED (test code=MDIFF) YES WBC [id number] 11:52:00 Test Item Value Reference Range Comments ANISOCYTOSIS (test code=ANISO) PLATELET ESTIMATE (test code=PLTEST) THOUSAND ADEQUATE RETIC COUNT (AUTOMATED)2018-12-02 11:52:00 Test Item Value Reference Range Comments RETIC COUNT (AUTOMATED) (test code=RETICA) % 0.3-2.3 BASIC METABOLIC [id number] 08:17:00 Test Item Value Reference Range Comments [...] (test code=CA) 8.9 mg/dL 8.0-10.5 CBC W/AUTO [id number] 07:16:00 Test Item Value Reference Range Comments [...] (AUTOMATED) (test code=RETICA) % 0.3-2.3 CBC W/AUTO [id number] 09:49:00 Test Item Value Reference Range Comments [...] MANUAL DIFF REQUIRED (test code=MDIFF) YES WBC [id number] 09:49:00 Test Item Value Reference Range Comments [...] PLTS SEEN PLT AGGREGATES: SLIGHT CBC W/AUTO [id number] 09:36:00 Test Item Value Reference Range Comments [...] MANUAL DIFF REQUIRED (test code=MDIFF) YES WBC [id number] 09:36:00 Test Item Value Reference Range Comments ANISOCYTOSIS (test code=ANISO) PLATELET ESTIMATE (test code=PLTEST) THOUSAND ADEQUATE CBC W/AUTO [id number] 09:36:00 Test Item Value Reference Range Comments [...] MANUAL DIFF REQUIRED (test code=MDIFF) YES WBC [id number] 09:36:00 Test Item Value Reference Range Comments ANISOCYTOSIS (test code=ANISO) PLATELET ESTIMATE (test code=PLTEST) THOUSAND ADEQUATE RETIC COUNT (AUTOMATED)2018-12-01 08:02:00 Test Item Value Reference Range Comments RETIC COUNT (AUTOMATED) (test code=RETICA) 24.7 % 0.3-2.3 CBC W/AUTO [id number] 07:55:00 Test Item Value Reference Range Comments [...] MANUAL DIFF REQUIRED (test code=MDIFF) BASIC METABOLIC [id number] 07:31:00 Test Item Value Reference Range Comments [...] (test code=CA) 8.6 mg/dL 8.0-10.5 CBC W/AUTO [id number] 12:24:00 Test Item Value Reference Range Comments [...] MANUAL DIFF REQUIRED (test code=MDIFF) YES WBC [id number] 12:24:00 Test Item Value Reference Range Comments [...] (test code=RETICA) 23.3 % 0.3-2.3 CBC W/AUTO [id number] 12:23:00 Test Item Value Reference Range Comments [...] MANUAL DIFF REQUIRED (test code=MDIFF) YES WBC [id number] 12:23:00 Test Item Value Reference Range Comments [...] (AUTOMATED) (test code=RETICA) % 0.3-2.3 BASIC METABOLIC [id number] 07:55:00 Test Item Value Reference Range Comments [...] (test code=CA) 8.6 mg/dL 8.0-10.5 CBC W/AUTO [id number] 07:44:00 Test Item Value Reference Range Comments [...] MANUAL DIFF REQUIRED (test code=MDIFF) YES WBC [id number] 07:44:00 Test Item Value Reference Range Comments ANISOCYTOSIS (test code=ANISO) PLATELET ESTIMATE (test code=PLTEST) THOUSAND ADEQUATE RETIC COUNT (AUTOMATED)2018-11-30 07:44:00 Test Item Value Reference Range Comments RETIC COUNT (AUTOMATED) (test code=RETICA) % 0.3-2.3 CBC W/AUTO [id number] 07:44:00 Test Item Value Reference Range Comments [...] MANUAL DIFF REQUIRED (test code=MDIFF) YES WBC [id number] 07:44:00 Test Item Value Reference Range Comments ANISOCYTOSIS (test code=ANISO) PLATELET ESTIMATE (test code=PLTEST) THOUSAND ADEQUATE RETIC COUNT (AUTOMATED)2018-11-30 07:44:00 Test Item Value Reference Range Comments RETIC COUNT (AUTOMATED) (test code=RETICA) % 0.3-2.3 HGB [id number] 22:58:00 Test Item Value Reference Range Comments HEMOGLOBIN (test code=HGB) 8.1 g/dL 11.0-15.0 HEMATOCRIT (test code=HCT) 25.1 % 33.0-45.0 CBC W/AUTO [id number] 11:20:00 Test Item Value Reference Range Comments [...] MANUAL DIFF REQUIRED (test code=MDIFF) YES WBC [id number] 11:20:00 Test Item Value Reference Range Comments [...] NORMAL - XR FOOT 3 + V [id number] 09:12:00 FAX: Juan Jose Fernandez NP [place]: [facility]: [facility] FAX: Beau Odell [phone] ---- Name: RODRIGO OSWALD [facility] : 1980 Age/S: 38/F [address] [place] [address] Unit #: [id number] Loc: [place] [address] Phys: Juan Jose Fernandez NP Acct: [id number] Dis Date: Status: ADM IN PHONE #: [phone] Exam Date: 11/29/2018830 FAX #: [phone] Reason: R/O CELLULITIS/OM EXAMS: CPT CODE: [id number] XR FOOT 3 + [place] [id number] Right foot 3views: HISTORY: Cellulitis. FINDINGS: Bony alignment in the foot is satisfactory without fracture or dislocation. No soft tissue foreign body or gas formation. There are no areas of bony destruction or abnormal periosteal reaction to indicate osteomyelitis SL: EG-H at 0912 Reported and signed by: Alessio Salinas M.D. CC: Juan Jose Fernandez SIMULATION ENGINEER ; Shankar Persaud MD Technologist: [place] Saba RT(R) Trnscrd Date/Time/By: 2018 (911) : By: JoaquinG Orig Print D/T: S: 11/29/2018 (15) PAGE 1 Signed ReportCBC W/AUTO [id number] 08:43:00 Test Item Value Reference Range Comments [...] MANUAL DIFF REQUIRED (test code=MDIFF) YES WBC [id number] 08:43:00 Test Item Value Reference Range Comments ANISOCYTOSIS (test code=ANISO) PLATELET ESTIMATE (test code=PLTEST) THOUSAND ADEQUATE CBC W/AUTO [id number] 08:43:00 Test Item Value Reference Range Comments [...] MANUAL DIFF REQUIRED (test code=MDIFF) YES WBC [id number] 08:43:00 Test Item Value Reference Range Comments ANISOCYTOSIS (test code=ANISO) PLATELET ESTIMATE (test code=PLTEST) THOUSAND ADEQUATE BASIC METABOLIC [id number] 08:20:00 Test Item Value Reference Range Comments [...] 0.6-1.3 CALCIUM (test code=CA) 7.8 mg/dL 8.0-10.5 [id number] 08:20:00 Test Item Value Reference Range Comments PHOSPHOROUS (test code=PHOS) 4.2 mg/dL 2.5-4.9 [id number] 08:20:00 Test Item Value Reference Range Comments MAGNESIUM (test code=MAG) 1.70 mg/dL 1.8-2.4 UR HCG [id number] 06:20:00 Test Item Value Reference Range Comments UR HCG QUAL (test code=HCGQLU) NEGATIVE NEGATIVE URINALYSIS [id number] 06:20:00 Test Item Value Reference Range Comments [...] /LPF NONE SEEN COMMENTS: Clean CatchUA CULT [id number] 06:20:00 Test Item Value Reference Range Comments [...] ng/mL are obtained. - XR CHEST 1 [id number] 23:30:00 FAX: Na Chauhan [place]: St: ADM Name: OS[facility]ALDMILADKEON [facility] : 1980 Age/S: 38/F [address] [place] [address] Unit#: [id number] Loc: [place] [address] Phys: Na Chauhan DO Acct: [id number] Dis Date: Status: ADM IN PHONE #: [phone] Exam Date: 11/28/2018 2310 FAX #: [phone] Reason: fever EXAMS: CPT CODE: [id number] XR CHEST 1 V 31996 EXAM: CR, XR chest one view: 11/28/2018, [...] DO Technologist: RT Yisel(Kaelyn) Trnscrd Date/Time/By: 11/28/2018 (5500) : By: [id number] Orig Print D/T: S: 11/28/2018 (9437) PAGE 1 Signed ReportTROPONIN-I [id number] 23:27:00 Test Item Value Reference Range Comments TROPONIN-I RAPID (test 0.00 ng/mL 0.00-0.08 Performed by certified combination saw operator code=TROPIRAP) at [facility] Negative: <=0.08 Positive: >=0.09An elevated troponin value alone is not sufficient todiagnose a myocardial infarction. Rather, the patient sclinical presentation (history, physical exam) and ECGshould be used in conjunction with troponin in thediagnostic evaluation of suspected myocardial infarction. Aserial sampling protocol is recommended to facilitate the identification of temporal changes in troponin levels characteristic of MD. CHEMISTRY 8 [id number] 23:26:00 Test Item Value Reference Range Comments ISTAT-SODIUM (test code=NAP) MMOL/L 134-147 ISTAT-POTASSIUM (test code=KP) MMOL/L 3.4-5.0 ISTAT-CHLORIDE (test code=CLP) MMOL/L 100-108 ISTAT CARBON DIOXIDE (test code=ISTAT-CO2) mmol/L 21-33 ISTAT CALCIUM IONIZED (test code=ISTAT-MUKESH) MG/DL 1.12-1.32 ISTAT-GLUCOSE (test code=GLUP) MG/DL 70-110 ISTAT-BUN (test code=BUNP) MG/DL 7-18 BEDSIDE CREATININE (test code=CREATBED) MG/DL 0.6-1.3 GLOMERULAR FILTRATION RATE POC (test code=GFRBED) 229 ML/MIN CHEMISTRY 8 [id number] 23:26:00 Test Item Value Reference Range Comments ISTAT-SODIUM (test code=NAP) 139 MMOL/L 134-147 ISTAT-POTASSIUM (test 4.1 MMOL/L 3.4-5.0 code=KP) ISTAT-CHLORIDE (test 105 MMOL/L 100-108 Performed by certified code=CLP) combination saw operator at [facility] ISTAT CARBON DIOXIDE (test 25.0 mmol/L 21-33 code=ISTAT-CO2) ISTAT CALCIUM IONIZED (test 1.16 MG/DL 1.12-1.32 code=ISTAT-MUKESH) ISTAT-GLUCOSE (test 78 MG/DL 70-110 code=GLUP) ISTAT-BUN (test code=BUNP) 6 MG/DL 7-18 BEDSIDE CREATININE (test 0.4 MG/DL 0.6-1.3 code=CREATBED) GLOMERULAR FILTRATION RATE 229 ML/MIN POC (test code=GFRBED) LACTIC ACID [id number] 23:20:00 Test Item Value Reference Range Comments LACTIC ACID POC (test 0.8 MMOL/L 0.90-1.70 Performed by certified code=LACTP) combination saw operator at [facility] HEPATIC FUNCTION [id number] 23:12:00 Test Item Value Reference Range Comments TOTAL PROTEIN (test code=PROT) 8.4 g/dL 6.4-8.2 ALBUMIN (test code=ALB) 3.00 g/dL 3.4-5.0 BILIRUBIN TOTAL (test code=BILT) 1.90 mg/dL 0.0-1.0 BILIRUBIN DIRECT (test code=BILD) 0.70 MG/DL 0.0-0.30 BILIRUBIN INDIRECT (test code=BILIND) 1.20 MG/DL SGOT/AST (test code=AST) 127 IUnit/L 15-37 SGPT/ALT (test code=ALT) 74 IUnit/L 15-65 ALKALINE PHOSPHATASE TOTAL (test code=ALKP) 175 IUnit/L 20-125 CBC W/AUTO [id number] 23:12:00 Test Item Value Reference Range Comments [...] MANUAL DIFF REQUIRED (test code=MDIFF) YES WBC [id number] 23:12:00 Test Item Value Reference Range Comments [...] (test code=RETICA) 33.7 % 0.3-2.3 CBC W/AUTO [id number] 23:10:00 Test Item Value Reference Range Comments [...] MANUAL DIFF REQUIRED (test code=MDIFF) YES WBC [id number] 23:10:00 Test Item Value Reference Range Comments ANISOCYTOSIS (test code=ANISO) PLATELET ESTIMATE (test code=PLTEST) THOUSAND ADEQUATE RETIC COUNT (AUTOMATED)2018-11-28 23:10:00 Test Item Value Reference Range Comments RETIC COUNT (AUTOMATED) (test code=RETICA) 33.7 % 0.3-2.3 CBC W/AUTO [id number] 23:10:00 Test Item Value Reference Range Comments [...] MANUAL DIFF REQUIRED (test code=MDIFF) YES WBC [id number] 23:10:00 Test Item Value Reference Range Comments ANISOCYTOSIS (test code=ANISO) PLATELET ESTIMATE (test code=PLTEST) THOUSAND ADEQUATE RETIC COUNT (AUTOMATED)2018-11-28 23:10:00 Test Item Value Reference Range Comments RETIC COUNT (AUTOMATED) (test code=RETICA) 33.7 % 0.3-2.3 PROTHROMBIN [id number] 23:07:00 Test Item Value Reference Range Comments [...] Infarction (to prevent recurrent infarct). THROMBOPLASTIN TIME [id number] 23:07:00 Test Item Value Reference Range Comments THROMBOPLASTIN TIME PARTIAL 36.8 Seconds 25.0-39.5 Therapeutic Range: (test code=PTT) 61.8-83.8 Sec Effective 09/17/2013 CBC W/AUTO [id number] 22:53:00 Test Item Value Reference Range Comments [...] COUNT (AUTOMATED) (test code=RETICA) 33.7 % 0.3-2.3 [id number] 11:06:00 Test Item Value Reference Range Comments HEMOGLOBIN (BEAKER) (test exhe=092) 7.1 GM/DL 11.2-15.7 CBC W/PLT COUNT & AUTO [id number] 09:43:00 Test Item Value Reference Range Comments WHITE BLOOD CELL COUNT (BEAKER) (test juvh=369) 16.2 K/ L 3.5-10.5 RED BLOOD CELL COUNT (BEAKER) (test xhem=707) 2.13 M/ L 3.93-5.22 HEMOGLOBIN (BEAKER) (test vhhu=530) 6.7 GM/DL 11.2-15.7 HEMATOCRIT (BEAKER) (test rkoy=769) 20.8 % 34.1-44.9 MEAN CORPUSCULAR VOLUME (BEAKER) (test gskz=959) 97.7 fL 79.4-94.8 MEAN CORPUSCULAR HEMOGLOBIN (BEAKER) (test 31.5 pg 25.6-32.2 aank=965) MEAN CORPUSCULAR HEMOGLOBIN CONC (BEAKER) (test 32.2 GM/DL 32.2-35.5 vlrb=992) RED CELL DISTRIBUTION WIDTH (BEAKER) (test 19.5 % 11.7-14.4 ohmg=840) PLATELET COUNT (BEAKER) (test dtji=495) 293 K/CU MM 150-450 MEAN PLATELET VOLUME (BEAKER) (test zpui=752) 11.0 fL 9.4-12.3 NUCLEATED RED BLOOD CELLS (BEAKER) (test 1 /100 WBC 0-0 alfn=434) (CELLAVISION MANUAL DIFF)2018-10-04 09:43:00 Test Item Value Reference Range Comments NEUTROPHILS - REL (CELLAVISION)(BEAKER) (test 41 % jchs=5734) LYMPHOCYTES - REL (CELLAVISION)(BEAKER) (test 43 % slyk=2683) MONOCYTES - REL (CELLAVISION)(BEAKER) (test 7 % acrm=7603) EOSINOPHILS - REL (CELLAVISION)(BEAKER) (test 8 % sezj=2452) NEUTROPHILS - ABS (CELLAVISION)(BEAKER) (test 6.64 K/ul 1.56-6.13 kxrw=4412) LYMPHOCYTES - ABS (CELLAVISION)(BEAKER) (test 6.97 K/ul 1.18-3.74 eqxa=9496) MONOCYTES - ABS (CELLAVISION)(BEAKER) (test 1.13 K/uL 0.24-0.36 stka=8003) EOSINOPHILS - ABS (CELLAVISION)(BEAKER) (test 1.30 K/uL 0.04-0.36 zfrh=0166) TOTAL COUNTED (BEAKER) (test xlxd=5557) 100 MANUAL NRBC PER 100 CELLS (BEAKER) (test 2 /100 WBC 0-0 exem=3163) WBC MORPHOLOGY (BEAKER) (test jbvw=503) Normal LARGE PLT(BEAKER) (test ghje=9540) Present POLYCHROMATOPHILLIC RBCS(BEAKER) (test fyys=179) 2+ moderate HYPOCHROMIA (BEAKER) (test fgpe=318) 1+ few TARGET CELLS (BEAKER) (test lxsz=427) 2+ moderate SICKLE CELLS (BEAKER) (test xfqk=158) 2+ moderate MATTHEWS-JOLLY BODIES (BEAKER) (test xotm=315) 1+ few ARTIFACT (CELLAVISION)(BEAKER) (test fhcp=5900) Present PLATELET CONCENTRATION (CELLAVISION)(BEAKER) Adequate (test pdbx=0256) Received comment: User comments: Slide comments:BASIC METABOLIC [id number] 06:18:00 Test Item Value Reference Range Comments SODIUM (BEAKER) (test 138 meq/L 136-145 aetn=766) POTASSIUM (BEAKER) (test 4.5 meq/L 3.5-5.1 ldrf=642) CHLORIDE (BEAKER) (test 102 meq/L 98-107 jkbe=705) CO2 (BEAKER) (test 30 meq/L 22-29 uqhn=037) BLOOD UREA NITROGEN 13 mg/dL 7-21 (BEAKER) (test fbvg=510) CREATININE (BEAKER) (test 0.62 mg/dL 0.57-1.25 xgxu=966) GLUCOSE RANDOM (BEAKER) 94 mg/dL 70-105 (test irrr=509) CALCIUM (BEAKER) (test 8.9 mg/dL 8.4-10.2 xgqk=666) EGFR (BEAKER) (test 130 mL/min/1.73 sq m ESTIMATED GFR IS NOT wige=9695) ACCURATE CREATININE CLEARANCE IN PREDICTING GLOMERULAR FILTRATION RATE. ESTIMATED GFR IS NOT APPLICABLE FOR DIALYSIS PATIENTS. Specimen slightly ictericCBC W/PLT COUNT & AUTO [id number] 13:29 :00 Test Item Value Reference Range Comments WHITE BLOOD CELL COUNT (BEAKER) (test sqyl=441) 15.0 K/ L 3.5-10.5 RED BLOOD CELL COUNT (BEAKER) (test smoe=983) 2.07 M/ L 3.93-5.22 HEMOGLOBIN (BEAKER) (test sgpv=478) 6.6 GM/DL 11.2-15.7 HEMATOCRIT (BEAKER) (test xgal=569) 20.3 % 34.1-44.9 MEAN CORPUSCULAR VOLUME (BEAKER) (test pekc=406) 98.1 fL 79.4-94.8 MEAN CORPUSCULAR HEMOGLOBIN (BEAKER) (test 31.9 pg 25.6-32.2 mcqp=338) MEAN CORPUSCULAR HEMOGLOBIN CONC (BEAKER) (test 32.5 GM/DL 32.2-35.5 qfop=989) RED CELL DISTRIBUTION WIDTH (BEAKER) (test 19.6 % 11.7-14.4 rnmq=994) PLATELET COUNT (BEAKER) (test eloo=596) 281 K/CU MM 150-450 MEAN PLATELET VOLUME (BEAKER) (test keur=439) 10.5 fL 9.4-12.3 NUCLEATED RED BLOOD CELLS (BEAKER) (test 1 /100 WBC 0-0 rqgu=562) (CELLAVISION MANUAL DIFF)2018-10-03 13:29:00 Test Item Value Reference Range Comments NEUTROPHILS - REL (CELLAVISION)(BEAKER) (test 48 % kmyn=1057) LYMPHOCYTES - REL (CELLAVISION)(BEAKER) (test 25 % tbnl=5289) MONOCYTES - REL (CELLAVISION)(BEAKER) (test 15 % qmzn=3143) EOSINOPHILS - REL (CELLAVISION)(BEAKER) (test 9 % kkga=7246) BANDS - REL (CELLAVISION)(BEAKER) (test 1 % 0-10 raxp=2168) ATYPICAL LYMPHOCYTES - REL (CELLAVISION)(BEAKER) 2 % 0-0 (test qekf=2072) NEUTROPHILS - ABS (CELLAVISION)(BEAKER) (test 7.20 K/ul 1.56-6.13 xzzi=8629) LYMPHOCYTES - ABS (CELLAVISION)(BEAKER) (test 3.75 K/ul 1.18-3.74 nixo=3725) MONOCYTES - ABS (CELLAVISION)(BEAKER) (test 2.25 K/uL 0.24-0.36 ggif=5514) EOSINOPHILS - ABS (CELLAVISION)(BEAKER) (test 1.35 K/uL 0.04-0.36 hsvt=4691) BANDS - ABS (CELLAVISION)(BEAKER) (test 0.15 K/uL 0.00-0.80 ahzt=4745) ATYPICAL LYMPHOCYTES - ABS (CELLAVISION)(BEAKER) 0.30 K/uL 0.00-0.00 (test mtae=2599) TOTAL COUNTED (BEAKER) (test egsu=5600) 100 MANUAL NRBC PER 100 CELLS (BEAKER) (test 2 /100 WBC 0-0 zupn=3829) SMUDGE CELLS (BEAKER) (test hcay=2529) Present GIANT PLATELETS (BEAKER) (test sush=265) Present POLYCHROMATOPHILLIC RBCS(BEAKER) (test xyfu=828) 1+ few ANISOCYTOSIS (BEAKER) (test vzia=156) 2+ moderate MACROCYTES (BEAKER) (test ktid=703) 2+ moderate TARGET CELLS (BEAKER) (test eydn=562) 1+ few SCHISTOCYTES (BEAKER) (test iivs=720) 1+ few SICKLE CELLS (BEAKER) (test zlea=912) 2+ moderate OVALOCYTES (BEAKER) (test eyfu=651) 1+ few HELMET CELLS (CELLAVISION)(BEAKER) (test 1+ few stil=4535) PLATELET CONCENTRATION (CELLAVISION)(BEAKER) Adequate (test edeu=4303) Received comment: User comments: Slide comments:BASIC METABOLIC [id number] 07:09:00 Test Item Value Reference Range Comments SODIUM (BEAKER) (test 140 meq/L 136-145 wijw=902) POTASSIUM (BEAKER) (test 4.3 meq/L 3.5-5.1 sfzn=139) CHLORIDE (BEAKER) (test 105 meq/L 98-107 vucb=634) CO2 (BEAKER) (test 29 meq/L 22-29 epga=992) BLOOD UREA NITROGEN 14 mg/dL 7-21 (BEAKER) (test khwp=521) CREATININE (BEAKER) (test 0.63 mg/dL 0.57-1.25 nhhr=471) GLUCOSE RANDOM (BEAKER) 102 mg/dL 70-105 (test mrae=350) CALCIUM (BEAKER) (test 8.5 mg/dL 8.4-10.2 uqhp=251) EGFR (BEAKER) (test 128 mL/min/1.73 sq m ESTIMATED GFR IS NOT aabm=1574) ACCURATE CREATININE CLEARANCE IN PREDICTING GLOMERULAR FILTRATION RATE. ESTIMATED GFR IS NOT APPLICABLE FOR DIALYSIS PATIENTS. CBC W/PLT COUNT & AUTO [id number] 12:29:00 Test Item Value Reference Range Comments WHITE BLOOD CELL COUNT (BEAKER) (test qkbj=214) 14.2 K/ L 3.5-10.5 RED BLOOD CELL COUNT (BEAKER) (test bklj=087) 2.11 M/ L 3.93-5.22 HEMOGLOBIN (BEAKER) (test adfg=750) 6.7 GM/DL 11.2-15.7 HEMATOCRIT (BEAKER) (test hfcn=081) 20.6 % 34.1-44.9 MEAN CORPUSCULAR VOLUME (BEAKER) (test xljb=858) 97.6 fL 79.4-94.8 MEAN CORPUSCULAR HEMOGLOBIN (BEAKER) (test 31.8 pg 25.6-32.2 epsb=962) MEAN CORPUSCULAR HEMOGLOBIN CONC (BEAKER) (test 32.5 GM/DL 32.2-35.5 keba=555) RED CELL DISTRIBUTION WIDTH (BEAKER) (test 20.2 % 11.7-14.4 dsyd=041) PLATELET COUNT (BEAKER) (test rqqy=214) 280 K/CU MM 150-450 MEAN PLATELET VOLUME (BEAKER) (test rltj=375) 10.3 fL 9.4-12.3 NUCLEATED RED BLOOD CELLS (BEAKER) (test 1 /100 WBC 0-0 wadg=950) (CELLAVISION MANUAL DIFF)2018-10-02 12:29:00 Test Item Value Reference Range Comments NEUTROPHILS - REL (CELLAVISION)(BEAKER) (test 43 % eckd=7316) LYMPHOCYTES - REL (CELLAVISION)(BEAKER) (test 35 % gzbn=6469) MONOCYTES - REL (CELLAVISION)(BEAKER) (test 8 % ooql=6679) EOSINOPHILS - REL (CELLAVISION)(BEAKER) (test 8 % qaih=9502) BASOPHILS - REL (CELLAVISION)(BEAKER) (test 2 % mrry=2590) MYELOCYTES - REL (CELLAVISION)(BEAKER) (test 1 % 0-0 fpwd=4279) PROMYELOCYTES - REL (CELLAVSION)(BEAKER) (test 1 % 0-0 xvnk=3498) ATYPICAL LYMPHOCYTES - REL (CELLAVISION)(BEAKER) 2 % 0-0 (test awyy=3004) NEUTROPHILS - ABS (CELLAVISION)(BEAKER) (test 6.11 K/ul 1.56-6.13 gwfv=1864) LYMPHOCYTES - ABS (CELLAVISION)(BEAKER) (test 4.97 K/ul 1.18-3.74 tpux=7084) MONOCYTES - ABS (CELLAVISION)(BEAKER) (test 1.14 K/uL 0.24-0.36 rqgr=8359) EOSINOPHILS - ABS (CELLAVISION)(BEAKER) (test 1.14 K/uL 0.04-0.36 zpkm=7678) BASOPHILS - ABS (CELLAVISION)(BEAKER) (test 0.28 K/uL 0.01-0.08 pgke=2402) MYELOCYTES-ABS (CELLAVISION)(BEAKER) (test 0.14 K/uL 0.00-0.00 dvof=9036) PROMYELOCYTES - ABS (CELLAVISION)(BEAKER) (test 0.14 K/uL 0.00-0.00 pwfq=8195) ATYPICAL LYMPHOCYTES - ABS (CELLAVISION)(BEAKER) 0.28 K/uL 0.00-0.00 (test ocey=4110) TOTAL COUNTED (BEAKER) (test gyxe=7364) 100 MANUAL NRBC PER 100 CELLS (BEAKER) (test 2 /100 WBC 0-0 lenn=1390) SMUDGE CELLS (BEAKER) (test pvhg=6455) Present GIANT PLATELETS (BEAKER) (test ncgv=098) Present POLYCHROMATOPHILLIC RBCS(BEAKER) (test jzze=816) 1+ few ANISOCYTOSIS (BEAKER) (test ayje=809) 2+ moderate MACROCYTES (BEAKER) (test ybqb=562) 2+ moderate TARGET CELLS (BEAKER) (test wkhc=463) 1+ few SCHISTOCYTES (BEAKER) (test sxkm=709) 1+ few SICKLE CELLS (BEAKER) (test iynp=046) 1+ few PLATELET CONCENTRATION (CELLAVISION)(BEAKER) Adequate (test axje=1433) Received comment: User comments: Slide comments:[id number] 07:28:00 Test Item Value Reference Range Comments FERRITIN (BEAKER) (test xfpn=668) [address] ng/mL 5-275 BASIC METABOLIC [id number] 06:25:00 Test Item Value Reference Range Comments SODIUM (BEAKER) (test 139 meq/L 136-145 lehz=761) POTASSIUM (BEAKER) (test 3.9 meq/L 3.5-5.1 fesj=228) CHLORIDE (BEAKER) (test 103 meq/L 98-107 bghy=997) CO2 (BEAKER) (test 30 meq/L 22-29 yxwk=372) BLOOD UREA NITROGEN 15 mg/dL 7-21 (BEAKER) (test jbhd=974) CREATININE (BEAKER) (test 0.63 mg/dL 0.57-1.25 dtoc=502) GLUCOSE RANDOM (BEAKER) 106 mg/dL 70-105 (test cvnm=108) CALCIUM (BEAKER) (test 8.4 mg/dL 8.4-10.2 ajsa=122) EGFR (BEAKER) (test 128 mL/min/1.73 sq m ESTIMATED GFR IS NOT btsv=7132) ACCURATE CREATININE CLEARANCE IN PREDICTING GLOMERULAR FILTRATION RATE. ESTIMATED GFR IS NOT APPLICABLE FOR DIALYSIS PATIENTS. Specimen slightly ictericCBC W/PLT COUNT & AUTO [id number] 10:00 :00 Test Item Value Reference Range Comments WHITE BLOOD CELL COUNT (BEAKER) (test dtpt=397) 14.6 K/ L 3.5-10.5 RED BLOOD CELL COUNT (BEAKER) (test uspt=748) 2.25 M/ L 3.93-5.22 HEMOGLOBIN (BEAKER) (test kwko=808) 7.2 GM/DL 11.2-15.7 HEMATOCRIT (BEAKER) (test teva=864) 21.8 % 34.1-44.9 MEAN CORPUSCULAR VOLUME (BEAKER) (test uugb=789) 96.9 fL 79.4-94.8 MEAN CORPUSCULAR HEMOGLOBIN (BEAKER) (test 32.0 pg 25.6-32.2 nkkh=018) MEAN CORPUSCULAR HEMOGLOBIN CONC (BEAKER) (test 33.0 GM/DL 32.2-35.5 gkar=129) RED CELL DISTRIBUTION WIDTH (BEAKER) (test 21.2 % 11.7-14.4 jeka=972) PLATELET COUNT (BEAKER) (test csue=285) 273 K/CU MM 150-450 MEAN PLATELET VOLUME (BEAKER) (test wnax=953) 11.2 fL 9.4-12.3 NUCLEATED RED BLOOD CELLS (BEAKER) (test 2 /100 WBC 0-0 vuxv=890) (CELLAVISION MANUAL DIFF)2018-09-30 10:00:00 Test Item Value Reference Range Comments NEUTROPHILS - REL (CELLAVISION)(BEAKER) (test 49 % yrnr=8494) LYMPHOCYTES - REL (CELLAVISION)(BEAKER) (test 33 % yhhi=1106) MONOCYTES - REL (CELLAVISION)(BEAKER) (test 11 % jwzl=4573) EOSINOPHILS - REL (CELLAVISION)(BEAKER) (test 6 % odul=7070) ATYPICAL LYMPHOCYTES - REL (CELLAVISION)(BEAKER) 1 % 0-0 (test ccoa=3283) NEUTROPHILS - ABS (CELLAVISION)(BEAKER) (test 7.15 K/ul 1.56-6.13 makh=6712) LYMPHOCYTES - ABS (CELLAVISION)(BEAKER) (test 4.82 K/ul 1.18-3.74 spip=7517) MONOCYTES - ABS (CELLAVISION)(BEAKER) (test 1.61 K/uL 0.24-0.36 etjq=8936) EOSINOPHILS - ABS (CELLAVISION)(BEAKER) (test 0.88 K/uL 0.04-0.36 alio=1018) ATYPICAL LYMPHOCYTES - ABS (CELLAVISION)(BEAKER) 0.15 K/uL 0.00-0.00 (test rdky=9672) TOTAL COUNTED (BEAKER) (test hzop=2673) 100 MANUAL NRBC PER 100 CELLS (BEAKER) (test 4 /100 WBC 0-0 ikaw=8552) WBC MORPHOLOGY (BEAKER) (test bkzb=935) Normal PLT MORPHOLOGY (BEAKER) (test wqij=587) Normal POLYCHROMATOPHILLIC RBCS(BEAKER) (test cbcb=070) 2+ moderate ANISOCYTOSIS (BEAKER) (test qfvy=665) 2+ moderate TARGET CELLS (BEAKER) (test owon=952) 2+ moderate SICKLE CELLS (BEAKER) (test zxdt=146) 1+ few ARTIFACT (CELLAVISION)(BEAKER) (test byoy=8704) Present PLATELET CONCENTRATION (CELLAVISION)(BEAKER) Adequate (test pjbo=7518) Received comment: User comments: Slide comments:HEPATIC FUNCTION [id number] 05:37:00 Test Item Value Reference Range Comments TOTAL PROTEIN (BEAKER) (test vkgb=105) 7.9 gm/dL 6.0-8.3 ALBUMIN (BEAKER) (test vunr=3566) 3.2 g/dL 3.5-5.0 BILIRUBIN TOTAL (BEAKER) (test kiyj=225) 2.5 mg/dL 0.2-1.2 BILIRUBIN DIRECT (BEAKER) (test xxng=575) 1.2 mg/dL 0.1-0.5 ALKALINE PHOSPHATASE (BEAKER) (test toyq=190) 183 U/L 40-150 AST (SGOT) (BEAKER) (test qusx=919) 129 U/L 5-34 ALT (SGPT) (BEAKER) (test lozu=885) 72 U/L 6-55 COMPREHENSIVE METABOLIC [id number] 05:37:00 Test Item Value Reference Range Comments TOTAL PROTEIN (BEAKER) 7.9 gm/dL 6.0-8.3 (test fsio=674) ALBUMIN (BEAKER) (test 3.2 g/dL 3.5-5.0 lojm=8798) ALKALINE PHOSPHATASE 183 U/L 40-150 (BEAKER) (test cadk=708) BILIRUBIN TOTAL (BEAKER) 2.5 mg/dL 0.2-1.2 (test ocyf=968) SODIUM (BEAKER) (test 141 meq/L 136-145 ybpx=658) POTASSIUM (BEAKER) (test 3.8 meq/L 3.5-5.1 zrlv=692) CHLORIDE (BEAKER) (test 104 meq/L 98-107 cohm=596) CO2 (BEAKER) (test 28 meq/L 22-29 yeam=445) BLOOD UREA NITROGEN 12 mg/dL 7-21 (BEAKER) (test eoyr=387) CREATININE (BEAKER) (test 0.69 mg/dL 0.57-1.25 zwmu=032) GLUCOSE RANDOM (BEAKER) 97 mg/dL 70-105 (test aohd=409) CALCIUM (BEAKER) (test 8.4 mg/dL 8.4-10.2 yrlv=380) AST (SGOT) (BEAKER) (test 129 U/L 5-34 xqdr=735) ALT (SGPT) (BEAKER) (test 72 U/L 6-55 zdjf=466) EGFR (BEAKER) (test 115 mL/min/1.73 sq ESTIMATED GFR IS NOT tfgo=2159) m ACCURATE CREATININE CLEARANCE IN PREDICTING GLOMERULAR FILTRATION RATE. ESTIMATED GFR IS NOT APPLICABLE FOR DIALYSIS PATIENTS. CBC W/PLT COUNT & AUTO [id number] 11:21:00 Test Item Value Reference Range Comments WHITE BLOOD CELL COUNT (BEAKER) 15.6 K/ L 3.5-10.5 (test rigx=756) RED BLOOD CELL COUNT (BEAKER) 2.42 M/ L 3.93-5.22 (test kopi=790) HEMOGLOBIN (BEAKER) (test 7.7 GM/DL 11.2-15.7 wuyb=818) HEMATOCRIT (BEAKER) (test 23.7 % 34.1-44.9 ceuo=151) MEAN CORPUSCULAR VOLUME 97.9 fL 79.4-94.8 PATIENT HAD TWO UNITS (BEAKER) (test smcv=001) LRBC'S BG#[id number] MEAN CORPUSCULAR HEMOGLOBIN 31.8 pg 25.6-32.2 (BEAKER) (test mqfa=104) MEAN CORPUSCULAR HEMOGLOBIN 32.5 GM/DL 32.2-35.5 CONC (BEAKER) (test zbtt=132) RED CELL DISTRIBUTION WIDTH 21.2 % 11.7-14.4 (BEAKER) (test wuog=929) PLATELET COUNT (BEAKER) (test 263 K/CU MM 150-450 uwzp=342) MEAN PLATELET VOLUME (BEAKER) 11.7 fL 9.4-12.3 (test psze=922) NUCLEATED RED BLOOD CELLS 3 /100 WBC 0-0 (BEAKER) (test dxhv=580) (CELLAVISION MANUAL DIFF)[id number] 11:21:00 Test Item Value Reference Range Comments NEUTROPHILS - REL (CELLAVISION)(BEAKER) (test 42 % pfho=3884) LYMPHOCYTES - REL (CELLAVISION)(BEAKER) (test 29 % wibe=8822) MONOCYTES - REL (CELLAVISION)(BEAKER) (test 11 % pvlz=5207) EOSINOPHILS - REL (CELLAVISION)(BEAKER) (test 15 % kbpd=8426) BANDS - REL (CELLAVISION)(BEAKER) (test 1 % 0-10 lvzw=4513) ATYPICAL LYMPHOCYTES - REL (CELLAVISION)(BEAKER) 1 % 0-0 (test ykcz=5055) NEUTROPHILS - ABS (CELLAVISION)(BEAKER) (test 6.55 K/ul 1.56-6.13 mztf=6534) LYMPHOCYTES - ABS (CELLAVISION)(BEAKER) (test 4.52 K/ul 1.18-3.74 lpdr=7066) MONOCYTES - ABS (CELLAVISION)(BEAKER) (test 1.72 K/uL 0.24-0.36 qpyo=3330) EOSINOPHILS - ABS (CELLAVISION)(BEAKER) (test 2.34 K/uL 0.04-0.36 wjyh=8318) BANDS - ABS (CELLAVISION)(BEAKER) (test 0.16 K/uL 0.00-0.80 jvmp=7281) ATYPICAL LYMPHOCYTES - ABS (CELLAVISION)(BEAKER) 0.16 K/uL 0.00-0.00 (test upza=6479) TOTAL COUNTED (BEAKER) (test xtmi=9294) 100 MANUAL NRBC PER 100 CELLS (BEAKER) (test 3 /100 WBC 0-0 iiyg=4875) SMUDGE CELLS (BEAKER) (test fuii=6940) Present GIANT PLATELETS (BEAKER) (test jvog=500) Present POLYCHROMATOPHILLIC RBCS(BEAKER) (test apum=668) 3+ many ANISOCYTOSIS (BEAKER) (test orkp=461) 2+ moderate MACROCYTES (BEAKER) (test wacv=396) 2+ moderate SCHISTOCYTES (BEAKER) (test xsce=506) 1+ few SICKLE CELLS (BEAKER) (test enha=744) 1+ few MATTHIEU CELLS (BEAKER) (test lbbi=928) 1+ few PLATELET CONCENTRATION (CELLAVISION)(BEAKER) Adequate (test hjrp=6703) Received comment: User comments: Slide comments:BASIC METABOLIC [id number] 06:23:00 Test Item Value Reference Range Comments SODIUM (BEAKER) (test 135 meq/L 136-145 jilc=755) POTASSIUM (BEAKER) (test 3.9 meq/L 3.5-5.1 juet=967) CHLORIDE (BEAKER) (test 103 meq/L 98-107 cglq=096) CO2 (BEAKER) (test 23 meq/L 22-29 bjyc=590) BLOOD UREA NITROGEN 9 mg/dL 7-21 (BEAKER) (test hmir=739) CREATININE (BEAKER) (test 0.72 mg/dL 0.57-1.25 ohdn=227) GLUCOSE RANDOM (BEAKER) 93 mg/dL 70-105 (test eggq=265) CALCIUM (BEAKER) (test 8.2 mg/dL 8.4-10.2 wvxr=924) EGFR (BEAKER) (test 109 mL/min/1.73 sq m ESTIMATED GFR IS NOT hurh=9606) ACCURATE CREATININE CLEARANCE IN PREDICTING GLOMERULAR FILTRATION RATE. ESTIMATED GFR IS NOT APPLICABLE FOR DIALYSIS PATIENTS. Specimen slightly ictericHEPATIC FUNCTION [id number] 06:23:00 Test Item Value Reference Range Comments TOTAL PROTEIN (BEAKER) (test ongh=393) 8.5 gm/dL 6.0-8.3 ALBUMIN (BEAKER) (test ehco=3273) 3.5 g/dL 3.5-5.0 BILIRUBIN TOTAL (BEAKER) (test qtjb=061) 2.5 mg/dL 0.2-1.2 BILIRUBIN DIRECT (BEAKER) (test fpgj=178) 1.2 mg/dL 0.1-0.5 ALKALINE PHOSPHATASE (BEAKER) (test oyeo=579) 155 U/L 40-150 AST (SGOT) (BEAKER) (test jjvp=190) 123 U/L 5-34 ALT (SGPT) (BEAKER) (test rxqr=585) 69 U/L 6-55 Specimen slightly ictericBASIC METABOLIC [id number] 08:14:00 Test Item Value Reference Range Comments SODIUM (BEAKER) (test 138 meq/L 136-145 cjlf=718) POTASSIUM (BEAKER) (test 3.8 meq/L 3.5-5.1 zdbi=783) CHLORIDE (BEAKER) (test 108 meq/L 98-107 hbzs=404) CO2 (BEAKER) (test 21 meq/L 22-29 qrec=403) BLOOD UREA NITROGEN 12 mg/dL 7-21 (BEAKER) (test oevk=514) CREATININE (BEAKER) (test 0.79 mg/dL 0.57-1.25 ylci=483) GLUCOSE RANDOM (BEAKER) 114 mg/dL 70-105 (test zatg=863) CALCIUM (BEAKER) (test 8.4 mg/dL 8.4-10.2 kvmj=773) EGFR (BEAKER) (test 98 mL/min/1.73 sq m ESTIMATED GFR IS NOT kkwe=6983) ACCURATE CREATININE CLEARANCE IN PREDICTING GLOMERULAR FILTRATION RATE. ESTIMATED GFR IS NOT APPLICABLE FOR DIALYSIS PATIENTS. Specimen slightly ictericHEPATIC FUNCTION [id number] 08:14:00 Test Item Value Reference Range Comments TOTAL PROTEIN (BEAKER) (test anjv=005) 8.1 gm/dL 6.0-8.3 ALBUMIN (BEAKER) (test oern=4603) 3.2 g/dL 3.5-5.0 BILIRUBIN TOTAL (BEAKER) (test htok=037) 2.5 mg/dL 0.2-1.2 BILIRUBIN DIRECT (BEAKER) (test remp=520) 1.1 mg/dL 0.1-0.5 ALKALINE PHOSPHATASE (BEAKER) (test yryx=669) 152 U/L 40-150 AST (SGOT) (BEAKER) (test vhgj=833) 118 U/L 5-34 ALT (SGPT) (BEAKER) (test cpxp=929) 65 U/L 6-55 Specimen slightly ictericSpecimen slightly lipemic(CELLAVISION MANUAL DIFF)09-28 02:39:00 Test Item Value Reference Range Comments NEUTROPHILS - REL (CELLAVISION)(BEAKER) (test 52 % mjpo=4339) LYMPHOCYTES - REL (CELLAVISION)(BEAKER) (test 26 % chyu=0219) MONOCYTES - REL (CELLAVISION)(BEAKER) (test 8 % ptpq=6495) EOSINOPHILS - REL (CELLAVISION)(BEAKER) (test 12 % pesy=9616) BASOPHILS - REL (CELLAVISION)(BEAKER) (test 2 % rzoy=7961) NEUTROPHILS - ABS (CELLAVISION)(BEAKER) (test 8.37 K/ul 1.56-6.13 zwjp=7889) LYMPHOCYTES - ABS (CELLAVISION)(BEAKER) (test 4.19 K/ul 1.18-3.74 nchx=2992) MONOCYTES - ABS (CELLAVISION)(BEAKER) (test 1.29 K/uL 0.24-0.36 bths=8969) EOSINOPHILS - ABS (CELLAVISION)(BEAKER) (test 1.93 K/uL 0.04-0.36 dpce=4248) BASOPHILS - ABS (CELLAVISION)(BEAKER) (test 0.32 K/uL 0.01-0.08 nxrx=6749) TOTAL COUNTED (BEAKER) (test nwdr=5677) 100 MANUAL NRBC PER 100 CELLS (BEAKER) (test 11 /100 WBC 0-0 ngcz=0000) SMUDGE CELLS (BEAKER) (test dhjc=8488) Present GIANT PLATELETS (BEAKER) (test xqlq=841) Present POLYCHROMATOPHILLIC RBCS(BEAKER) (test xneh=357) 3+ many ANISOCYTOSIS (BEAKER) (test ilxa=663) 3+ many MACROCYTES (BEAKER) (test duvw=376) 3+ many POIKILOCYTES (BEAKER) (test uwak=202) 2+ moderate TARGET CELLS (BEAKER) (test tkkm=644) 2+ moderate SCHISTOCYTES (BEAKER) (test cgtl=334) 1+ few SICKLE CELLS (BEAKER) (test hxbh=189) 1+ few ELLIPTOCYTES (BEAKER) (test xzxn=147) 1+ few STOMATOCYTES (BEAKER) (test awcs=841) 2+ moderate MATTHEWS-JOLLY BODIES (BEAKER) (test grms=626) 1+ few PLATELET CONCENTRATION (CELLAVISION)(BEAKER) Adequate (test jenk=8662) Received comment: User comments: Slide comments:CBC W/PLT COUNT & AUTO [id number] 02:38:00 Test Item Value Reference Range Comments WHITE BLOOD CELL COUNT (BEAKER) (test lktu=170) 16.1 K/ L 3.5-10.5 RED BLOOD CELL COUNT (BEAKER) (test lgko=887) 1.44 M/ L 3.93-5.22 HEMOGLOBIN (BEAKER) (test jdoj=331) 5.0 GM/DL 11.2-15.7 HEMATOCRIT (BEAKER) (test ftfw=264) 15.7 % 34.1-44.9 MEAN CORPUSCULAR VOLUME (BEAKER) (test qauf=851) 109.0 fL 79.4-94.8 MEAN CORPUSCULAR HEMOGLOBIN (BEAKER) (test 34.7 pg 25.6-32.2 wqof=092) MEAN CORPUSCULAR HEMOGLOBIN CONC (BEAKER) (test 31.8 GM/DL 32.2-35.5 gtkn=418) RED CELL DISTRIBUTION WIDTH (BEAKER) (test 23.2 % 11.7-14.4 qpyq=174) PLATELET COUNT (BEAKER) (test pfhc=906) 220 K/CU MM 150-450 MEAN PLATELET VOLUME (BEAKER) (test sdbk=219) 11.2 fL 9.4-12.3 NUCLEATED RED BLOOD CELLS (BEAKER) (test 9 /100 WBC 0-0 ltgp=058) CBC W/PLT COUNT & AUTO [id number] 12:02:00 Test Item Value Reference Range Comments WHITE BLOOD CELL COUNT (BEAKER) (test hphc=275) 14.3 K/ L 3.5-10.5 RED BLOOD CELL COUNT (BEAKER) (test jqtt=126) 2.54 M/ L 3.93-5.22 HEMOGLOBIN (BEAKER) (test unyz=116) 7.3 GM/DL 11.2-15.7 HEMATOCRIT (BEAKER) (test pona=183) 23.4 % 34.1-44.9 MEAN CORPUSCULAR VOLUME (BEAKER) (test jrjf=616) 92.1 fL 79.4-94.8 MEAN CORPUSCULAR HEMOGLOBIN (BEAKER) (test 28.7 pg 25.6-32.2 djec=071) MEAN CORPUSCULAR HEMOGLOBIN CONC (BEAKER) (test 31.2 GM/DL 32.2-35.5 bzus=480) RED CELL DISTRIBUTION WIDTH (BEAKER) (test 21.4 % 11.7-14.4 uoqw=580) PLATELET COUNT (BEAKER) (test znyq=988) 239 K/CU MM 150-450 MEAN PLATELET VOLUME (BEAKER) (test eiux=694) 11.0 fL 9.4-12.3 NUCLEATED RED BLOOD CELLS (BEAKER) (test 4 /100 WBC 0-0 khpn=336) (CELLAVISION MANUAL DIFF)2018-02-08 12:02:00 Test Item Value Reference Range Comments NEUTROPHILS - REL (CELLAVISION)(BEAKER) (test 66 % qtss=9159) LYMPHOCYTES - REL (CELLAVISION)(BEAKER) (test 22 % bxfw=4627) MONOCYTES - REL (CELLAVISION)(BEAKER) (test 8 % hpyb=1328) EOSINOPHILS - REL (CELLAVISION)(BEAKER) (test 3 % maxd=9944) NEUTROPHILS - ABS (CELLAVISION)(BEAKER) (test 9.44 K/ul 1.56-6.13 zqbd=4493) LYMPHOCYTES - ABS (CELLAVISION)(BEAKER) (test 3.15 K/ul 1.18-3.74 xkuo=1146) MONOCYTES - ABS (CELLAVISION)(BEAKER) (test 1.14 K/uL 0.24-0.36 bkkt=0086) EOSINOPHILS - ABS (CELLAVISION)(BEAKER) (test 0.43 K/uL 0.04-0.36 oynf=8840) TOTAL COUNTED (BEAKER) (test nojy=9512) 100 MANUAL NRBC PER 100 CELLS (BEAKER) (test 5 /100 WBC 0-0 cbit=0289) WBC MORPHOLOGY (BEAKER) (test iern=870) Normal PLT MORPHOLOGY (BEAKER) (test hvts=809) Normal ANISOCYTOSIS (BEAKER) (test qvle=869) 2+ moderate MACROCYTES (BEAKER) (test mqvk=481) 1+ few TARGET CELLS (BEAKER) (test ugbg=904) 1+ few SICKLE CELLS (BEAKER) (test zjze=252) 1+ few MATTHEWS-JOLLY BODIES (BEAKER) (test mtbb=731) 1+ few ARTIFACT (CELLAVISION)(BEAKER) (test vbcn=2876) Present PLATELET CONCENTRATION (CELLAVISION)(BEAKER) Adequate (test xqkd=3846) Received comment: User comments: Slide comments:BASIC METABOLIC [id number] 06:09:00 Test Item Value Reference Range Comments SODIUM (BEAKER) (test 138 meq/L 136-145 gxpv=431) POTASSIUM (BEAKER) (test 5.9 meq/L 3.5-5.1 blch=836) CHLORIDE (BEAKER) (test 102 meq/L 98-107 fkwz=813) CO2 (BEAKER) (test 30 meq/L 22-29 lyyh=475) BLOOD UREA NITROGEN 15 mg/dL 7-21 (BEAKER) (test jvjm=225) CREATININE (BEAKER) (test 0.68 mg/dL 0.57-1.25 dzie=513) GLUCOSE RANDOM (BEAKER) 87 mg/dL 70-105 (test dipp=415) CALCIUM (BEAKER) (test 9.6 mg/dL 8.4-10.2 gedt=609) EGFR (BEAKER) (test 117 mL/min/1.73 sq m ESTIMATED GFR IS NOT aqxx=7232) ACCURATE CREATININE CLEARANCE IN PREDICTING GLOMERULAR FILTRATION RATE. ESTIMATED GFR IS NOT APPLICABLE FOR DIALYSIS PATIENTS. (CELLAVISION MANUAL DIFF)2018-02-07 13:34:00 Test Item Value Reference Range Comments NEUTROPHILS - REL (CELLAVISION)(BEAKER) (test 68 % ytxw=2911) LYMPHOCYTES - REL (CELLAVISION)(BEAKER) (test 24 % glrj=2249) MONOCYTES - REL (CELLAVISION)(BEAKER) (test 7 % qksx=0717) EOSINOPHILS - REL (CELLAVISION)(BEAKER) (test 1 % ppcj=9018) NEUTROPHILS - ABS (CELLAVISION)(BEAKER) (test 9.66 K/ul 1.56-6.13 mais=5629) LYMPHOCYTES - ABS (CELLAVISION)(BEAKER) (test 3.41 K/ul 1.18-3.74 cbvi=6566) MONOCYTES - ABS (CELLAVISION)(BEAKER) (test 0.99 K/uL 0.24-0.36 smva=0352) EOSINOPHILS - ABS (CELLAVISION)(BEAKER) (test 0.14 K/uL 0.04-0.36 yvst=7586) TOTAL COUNTED (BEAKER) (test bhbj=2053) 100 MANUAL NRBC PER 100 CELLS (BEAKER) (test 15 /100 WBC 0-0 vvnm=4042) WBC MORPHOLOGY (BEAKER) (test dtib=806) Normal LARGE PLT(BEAKER) (test pnnx=7289) Present POLYCHROMATOPHILLIC RBCS(BEAKER) (test kgfn=003) 2+ moderate HYPOCHROMIA (BEAKER) (test ucgw=039) 1+ few TARGET CELLS (BEAKER) (test esuq=027) 2+ moderate SICKLE CELLS (BEAKER) (test kxby=534) 1+ few MATTHEWS-JOLLY BODIES (BEAKER) (test kiup=314) 1+ few ARTIFACT (CELLAVISION)(BEAKER) (test oohp=1120) Present PLATELET CONCENTRATION (CELLAVISION)(BEAKER) Adequate (test qkxg=9937) Received comment: User comments: Slide comments:CBC W/PLT COUNT & AUTO [id number] 13:33:00 Test Item Value Reference Range Comments WHITE BLOOD CELL COUNT (BEAKER) (test ozdx=007) 14.2 K/ L 3.5-10.5 RED BLOOD CELL COUNT (BEAKER) (test yknx=920) 2.68 M/ L 3.93-5.22 HEMOGLOBIN (BEAKER) (test xqgj=297) 7.7 GM/DL 11.2-15.7 HEMATOCRIT (BEAKER) (test bbcl=531) 24.5 % 34.1-44.9 MEAN CORPUSCULAR VOLUME (BEAKER) (test igku=832) 91.4 fL 79.4-94.8 MEAN CORPUSCULAR HEMOGLOBIN (BEAKER) (test 28.7 pg 25.6-32.2 evbw=040) MEAN CORPUSCULAR HEMOGLOBIN CONC (BEAKER) (test 31.4 GM/DL 32.2-35.5 vykz=787) RED CELL DISTRIBUTION WIDTH (BEAKER) (test 21.2 % 11.7-14.4 cycx=220) PLATELET COUNT (BEAKER) (test acvp=181) 257 K/CU MM 150-450 MEAN PLATELET VOLUME (BEAKER) (test kzux=587) 11.4 fL 9.4-12.3 NUCLEATED RED BLOOD CELLS (BEAKER) (test 6 /100 WBC 0-0 uvat=349) BASIC METABOLIC [id number] 07:19:00 Test Item Value Reference Range Comments SODIUM (BEAKER) (test 138 meq/L 136-145 agre=032) POTASSIUM (BEAKER) (test 5.3 meq/L 3.5-5.1 cngw=380) CHLORIDE (BEAKER) (test 98 meq/L 98-107 fvob=872) CO2 (BEAKER) (test 34 meq/L 22-29 zsyk=627) BLOOD UREA NITROGEN 16 mg/dL 7-21 (BEAKER) (test hqkh=469) CREATININE (BEAKER) (test 0.66 mg/dL 0.57-1.25 ovyi=810) GLUCOSE RANDOM (BEAKER) 90 mg/dL 70-105 (test gqff=450) CALCIUM (BEAKER) (test 9.8 mg/dL 8.4-10.2 aluw=774) EGFR (BEAKER) (test 121 mL/min/1.73 sq m ESTIMATED GFR IS NOT yudr=8841) ACCURATE CREATININE CLEARANCE IN PREDICTING GLOMERULAR FILTRATION RATE. ESTIMATED GFR IS NOT APPLICABLE FOR DIALYSIS PATIENTS. CBC W/PLT COUNT & AUTO [id number] 14:36:00 Test Item Value Reference Range Comments WHITE BLOOD CELL COUNT (BEAKER) (test oeqx=978) 12.9 K/ L 3.5-10.5 RED BLOOD CELL COUNT (BEAKER) (test xyjz=474) 2.54 M/ L 3.93-5.22 HEMOGLOBIN (BEAKER) (test taqn=499) 7.4 GM/DL 11.2-15.7 HEMATOCRIT (BEAKER) (test grrj=113) 22.9 % 34.1-44.9 MEAN CORPUSCULAR VOLUME (BEAKER) (test idmg=255) 90.2 fL 79.4-94.8 MEAN CORPUSCULAR HEMOGLOBIN (BEAKER) (test 29.1 pg 25.6-32.2 fccy=400) MEAN CORPUSCULAR HEMOGLOBIN CONC (BEAKER) (test 32.3 GM/DL 32.2-35.5 dybu=552) RED CELL DISTRIBUTION WIDTH (BEAKER) (test 21.2 % 11.7-14.4 awus=618) PLATELET COUNT (BEAKER) (test vuzi=169) 251 K/CU MM 150-450 MEAN PLATELET VOLUME (BEAKER) (test nkgt=100) 10.8 fL 9.4-12.3 NUCLEATED RED BLOOD CELLS (BEAKER) (test 7 /100 WBC 0-0 xdud=526) (MANUAL DIFFERENTIAL)2018-02-06 14:36:00 Test Item Value Reference Range Comments NEUTROPHILS - REL (DIFF) (BEAKER) (test 64 % qspq=6051) LYMPHOCYTES - REL (DIFF) (BEAKER) (test 22 % mazc=2369) MONOCYTES - REL (DIFF) (BEAKER) (test jlpa=1371) 8 % EOSINOPHILS - REL (DIFF) (BEAKER) (test 6 % cygv=0987) BASOPHILS - REL (DIFF) (BEAKER) (test ilzm=3900) 0 % NEUTROPHILS - ABS (DIFF) (BEAKER) (test 8.26 K/ L 1.80-8.00 unta=7353) LYMPHOCYTES - ABS (DIFF) (BEAKER) (test 2.84 K/ L 1.48-4.50 heko=7807) MONOCYTES - ABS (DIFF) (BEAKER) (test frlq=7738) 1.03 K/ L 0.00-1.30 EOSINOPHILS - ABS (DIFF) (BEAKER) (test 0.77 K/ L 0.00-0.50 exwz=0427) BASOPHILS - ABS (DIFF) (BEAKER) (test jwlr=3617) 0.00 K/ L 0.00-0.20 TOTAL COUNTED (BEAKER) (test bbnu=9608) 100 MANUAL NRBC PER 100 CELLS (BEAKER) (test 8 /100 WBC 0-0 rtql=1430) WBC MORPHOLOGY (BEAKER) (test rdvi=171) Normal PLT MORPHOLOGY (BEAKER) (test xzri=909) Normal ANISOCYTOSIS (BEAKER) (test sowb=498) 2+ moderate SICKLE CELLS (BEAKER) (test wdmz=342) 2+ moderate BASIC METABOLIC [id number] 06:59:00 Test Item Value Reference Range Comments SODIUM (BEAKER) (test 139 meq/L 136-145 qcan=643) POTASSIUM (BEAKER) (test 4.9 meq/L 3.5-5.1 lcjy=726) CHLORIDE (BEAKER) (test 100 meq/L 98-107 vecn=213) CO2 (BEAKER) (test 34 meq/L 22-29 qhol=653) BLOOD UREA NITROGEN 18 mg/dL 7-21 (BEAKER) (test gauy=809) CREATININE (BEAKER) (test 0.70 mg/dL 0.57-1.25 eqqf=390) GLUCOSE RANDOM (BEAKER) 102 mg/dL 70-105 (test sxai=881) CALCIUM (BEAKER) (test 9.8 mg/dL 8.4-10.2 sfet=793) EGFR (BEAKER) (test 114 mL/min/1.73 sq m ESTIMATED GFR IS NOT trdz=4224) ACCURATE CREATININE CLEARANCE IN PREDICTING GLOMERULAR FILTRATION RATE. ESTIMATED GFR IS NOT APPLICABLE FOR DIALYSIS PATIENTS. CBC W/PLT COUNT & AUTO [id number] 12:27:00 Test Item Value Reference Range Comments WHITE BLOOD CELL COUNT (BEAKER) (test kekj=539) 14.2 K/ L 3.5-10.5 RED BLOOD CELL COUNT (BEAKER) (test jxhx=740) 2.55 M/ L 3.93-5.22 HEMOGLOBIN (BEAKER) (test xqzm=279) 7.2 GM/DL 11.2-15.7 HEMATOCRIT (BEAKER) (test chip=930) 22.9 % 34.1-44.9 MEAN CORPUSCULAR VOLUME (BEAKER) (test cunb=914) 89.8 fL 79.4-94.8 MEAN CORPUSCULAR HEMOGLOBIN (BEAKER) (test 28.2 pg 25.6-32.2 reju=018) MEAN CORPUSCULAR HEMOGLOBIN CONC (BEAKER) (test 31.4 GM/DL 32.2-35.5 wrvz=732) RED CELL DISTRIBUTION WIDTH (BEAKER) (test 20.7 % 11.7-14.4 nznr=282) PLATELET COUNT (BEAKER) (test yfkm=615) 261 K/CU MM 150-450 MEAN PLATELET VOLUME (BEAKER) (test mfdd=811) 10.7 fL 9.4-12.3 NUCLEATED RED BLOOD CELLS (BEAKER) (test 5 /100 WBC 0-0 qnzl=460) (CELLAVISION MANUAL DIFF)2018-02-05 12:27:00 Test Item Value Reference Range Comments NEUTROPHILS - REL (CELLAVISION)(BEAKER) (test 67 % dkcu=3446) LYMPHOCYTES - REL (CELLAVISION)(BEAKER) (test 17 % pety=5676) MONOCYTES - REL (CELLAVISION)(BEAKER) (test 6 % kvzi=3615) EOSINOPHILS - REL (CELLAVISION)(BEAKER) (test 4 % yqry=7857) PROMYELOCYTES - REL (CELLAVSION)(BEAKER) (test 5 % 0-0 bmdp=5689) ATYPICAL LYMPHOCYTES - REL (CELLAVISION)(BEAKER) 1 % 0-0 (test ndyq=5814) NEUTROPHILS - ABS (CELLAVISION)(BEAKER) (test 9.51 K/ul 1.56-6.13 zscn=2787) LYMPHOCYTES - ABS (CELLAVISION)(BEAKER) (test 2.41 K/ul 1.18-3.74 wwdx=4182) MONOCYTES - ABS (CELLAVISION)(BEAKER) (test 0.85 K/uL 0.24-0.36 oyzu=8704) EOSINOPHILS - ABS (CELLAVISION)(BEAKER) (test 0.57 K/uL 0.04-0.36 wfii=4439) PROMYELOCYTES - ABS (CELLAVISION)(BEAKER) (test 0.71 K/uL 0.00-0.00 nvmy=0164) ATYPICAL LYMPHOCYTES - ABS (CELLAVISION)(BEAKER) 0.14 K/uL 0.00-0.00 (test quff=8717) TOTAL COUNTED (BEAKER) (test xivy=3838) 100 MANUAL NRBC PER 100 CELLS (BEAKER) (test 9 /100 WBC 0-0 cypk=5792) WBC MORPHOLOGY (BEAKER) (test lauo=835) Normal LARGE PLT(BEAKER) (test puhq=4301) Present POLYCHROMATOPHILLIC RBCS(BEAKER) (test tjum=635) 2+ moderate HYPOCHROMIA (BEAKER) (test dezy=085) 1+ few TARGET CELLS (BEAKER) (test eake=792) 2+ moderate SICKLE CELLS (BEAKER) (test ljbj=638) 2+ moderate ARTIFACT (CELLAVISION)(BEAKER) (test vfmr=3774) Present PLATELET CONCENTRATION (CELLAVISION)(BEAKER) Adequate (test binl=1106) Received comment: User comments: Slide comments:BASIC METABOLIC [id number] 07:44:00 Test Item Value Reference Range Comments SODIUM (BEAKER) (test 139 meq/L 136-145 oaff=814) POTASSIUM (BEAKER) (test 4.7 meq/L 3.5-5.1 kmpy=615) CHLORIDE (BEAKER) (test 100 meq/L 98-107 egds=060) CO2 (BEAKER) (test 31 meq/L 22-29 dicu=971) BLOOD UREA NITROGEN 14 mg/dL 7-21 (BEAKER) (test vokr=340) CREATININE (BEAKER) (test 0.69 mg/dL 0.57-1.25 slap=390) GLUCOSE RANDOM (BEAKER) 92 mg/dL 70-105 (test manr=411) CALCIUM (BEAKER) (test 9.8 mg/dL 8.4-10.2 gpag=162) EGFR (BEAKER) (test 115 mL/min/1.73 sq m ESTIMATED GFR IS NOT zvrv=6765) ACCURATE CREATININE CLEARANCE IN PREDICTING GLOMERULAR FILTRATION RATE. ESTIMATED GFR IS NOT APPLICABLE FOR DIALYSIS PATIENTS. CBC W/PLT COUNT & AUTO [id number] 13:29:00 Test Item Value Reference Range Comments WHITE BLOOD CELL COUNT (BEAKER) (test gtzo=818) 17.1 K/ L 3.5-10.5 RED BLOOD CELL COUNT (BEAKER) (test pyit=236) 2.68 M/ L 3.93-5.22 HEMOGLOBIN (BEAKER) (test onsb=215) 7.6 GM/DL 11.2-15.7 HEMATOCRIT (BEAKER) (test goxr=851) 23.3 % 34.1-44.9 MEAN CORPUSCULAR VOLUME (BEAKER) (test matj=249) 86.9 fL 79.4-94.8 MEAN CORPUSCULAR HEMOGLOBIN (BEAKER) (test 28.4 pg 25.6-32.2 bsyw=936) MEAN CORPUSCULAR HEMOGLOBIN CONC (BEAKER) (test 32.6 GM/DL 32.2-35.5 zmzl=790) RED CELL DISTRIBUTION WIDTH (BEAKER) (test 20.0 % 11.7-14.4 sjfb=209) PLATELET COUNT (BEAKER) (test qjeq=431) 252 K/CU MM 150-450 MEAN PLATELET VOLUME (BEAKER) (test fnuo=906) 10.9 fL 9.4-12.3 NUCLEATED RED BLOOD CELLS (BEAKER) (test 4 /100 WBC 0-0 zbey=714) (CELLAVISION MANUAL DIFF)2018-02-04 13:29:00 Test Item Value Reference Range Comments NEUTROPHILS - REL (CELLAVISION)(BEAKER) (test 61 % laro=0401) LYMPHOCYTES - REL (CELLAVISION)(BEAKER) (test 29 % kvdq=9086) MONOCYTES - REL (CELLAVISION)(BEAKER) (test 7 % bvwq=0496) EOSINOPHILS - REL (CELLAVISION)(BEAKER) (test 1 % xjge=4509) BANDS - REL (CELLAVISION)(BEAKER) (test 2 % 0-10 qxvu=1478) NEUTROPHILS - ABS (CELLAVISION)(BEAKER) (test 10.43 K/ul 1.56-6.13 kqvo=6135) LYMPHOCYTES - ABS (CELLAVISION)(BEAKER) (test 4.96 K/ul 1.18-3.74 otkd=8803) MONOCYTES - ABS (CELLAVISION)(BEAKER) (test 1.20 K/uL 0.24-0.36 trgw=5129) EOSINOPHILS - ABS (CELLAVISION)(BEAKER) (test 0.17 K/uL 0.04-0.36 opjy=5001) BANDS - ABS (CELLAVISION)(BEAKER) (test 0.34 K/uL 0.00-0.80 pjfe=7588) TOTAL COUNTED (BEAKER) (test acrc=5489) 100 MANUAL NRBC PER 100 CELLS (BEAKER) (test 3 /100 WBC 0-0 vqzy=1298) SMUDGE CELLS (BEAKER) (test uhqe=4424) Present GIANT PLATELETS (BEAKER) (test jbbo=585) Present POLYCHROMATOPHILLIC RBCS(BEAKER) (test iyqo=870) 3+ many ANISOCYTOSIS (BEAKER) (test jhzn=708) 2+ moderate MICROCYTES (BEAKER) (test bvmq=151) 1+ few POIKILOCYTES (BEAKER) (test gjry=308) 2+ moderate TARGET CELLS (BEAKER) (test gwnx=247) 2+ moderate SICKLE CELLS (BEAKER) (test uqal=784) 2+ moderate ARTIFACT (CELLAVISION)(BEAKER) (test lize=8390) Present HELMET CELLS (CELLAVISION)(BEAKER) (test 1+ few caxv=5365) PLATELET CONCENTRATION (CELLAVISION)(BEAKER) Adequate (test daya=5090) Received comment: User comments: Slide comments:BASIC METABOLIC [id number] 05:38:00 Test Item Value Reference Range Comments SODIUM (BEAKER) (test 140 meq/L 136-145 ryel=297) POTASSIUM (BEAKER) (test 4.6 meq/L 3.5-5.1 oniq=393) CHLORIDE (BEAKER) (test 104 meq/L 98-107 byea=726) CO2 (BEAKER) (test 28 meq/L 22-29 efxv=711) BLOOD UREA NITROGEN 18 mg/dL 7-21 (BEAKER) (test vjkd=177) CREATININE (BEAKER) (test 0.66 mg/dL 0.57-1.25 tehv=023) GLUCOSE RANDOM (BEAKER) 100 mg/dL 70-105 (test ediu=184) CALCIUM (BEAKER) (test 9.5 mg/dL 8.4-10.2 tevu=024) EGFR (BEAKER) (test 121 mL/min/1.73 sq m ESTIMATED GFR IS NOT khtv=9227) ACCURATE CREATININE CLEARANCE IN PREDICTING GLOMERULAR FILTRATION RATE. ESTIMATED GFR IS NOT APPLICABLE FOR DIALYSIS PATIENTS. CBC W/PLT COUNT & AUTO [id number] 14:02:00 Test Item Value Reference Range Comments WHITE BLOOD CELL COUNT (BEAKER) (test iejw=549) 20.8 K/ L 3.5-10.5 RED BLOOD CELL COUNT (BEAKER) (test yzbk=930) 1.97 M/ L 3.93-5.22 HEMOGLOBIN (BEAKER) (test wbtq=329) 5.9 GM/DL 11.2-15.7 HEMATOCRIT (BEAKER) (test pqar=648) 17.6 % 34.1-44.9 MEAN CORPUSCULAR VOLUME (BEAKER) (test zarj=633) 89.3 fL 79.4-94.8 MEAN CORPUSCULAR HEMOGLOBIN (BEAKER) (test 29.9 pg 25.6-32.2 ryfe=457) MEAN CORPUSCULAR HEMOGLOBIN CONC (BEAKER) (test 33.5 GM/DL 32.2-35.5 hnac=682) RED CELL DISTRIBUTION WIDTH (BEAKER) (test 21.8 % 11.7-14.4 gtxo=226) PLATELET COUNT (BEAKER) (test vtbu=972) 290 K/CU MM 150-450 MEAN PLATELET VOLUME (BEAKER) (test bhgq=123) 10.7 fL 9.4-12.3 NUCLEATED RED BLOOD CELLS (BEAKER) (test 5 /100 WBC 0-0 neup=417) NEUTROPHILS RELATIVE PERCENT (BEAKER) (test 66 % jfyf=401) LYMPHOCYTES RELATIVE PERCENT (BEAKER) (test 23 % fthp=822) MONOCYTES RELATIVE PERCENT (BEAKER) (test 10 % rpyb=441) EOSINOPHILS RELATIVE PERCENT (BEAKER) (test 1 % joct=932) BASOPHILS RELATIVE PERCENT (BEAKER) (test 0 % mufu=014) NEUTROPHILS ABSOLUTE COUNT (BEAKER) (test 13.73 K/ L 1.56-6.13 vviu=994) LYMPHOCYTES ABSOLUTE COUNT (BEAKER) (test 4.72 K/ L 1.18-3.74 hecz=696) MONOCYTES ABSOLUTE COUNT (BEAKER) (test 2.06 K/ L 0.24-0.36 cxll=857) EOSINOPHILS ABSOLUTE COUNT (BEAKER) (test 0.20 K/ L 0.04-0.36 edzt=629) BASOPHILS ABSOLUTE COUNT (BEAKER) (test 0.03 K/ L 0.01-0.08 alzi=411) IMMATURE GRANULOCYTES-RELATIVE PERCENT (BEAKER) 1 % 0-1 (test abal=8464) (CELLAVISION MANUAL DIFF)2018-02-03 14:02:00 Test Item Value Reference Range Comments TOTAL COUNTED (BEAKER) (test wmbp=0462) WBC MORPHOLOGY (BEAKER) (test sqjx=888) Normal PLT MORPHOLOGY (BEAKER) (test wtjy=692) Normal POLYCHROMATOPHILLIC RBCS(BEAKER) (test wwep=934) 2+ moderate ANISOCYTOSIS (BEAKER) (test ogem=439) 2+ moderate TARGET CELLS (BEAKER) (test temi=498) 2+ moderate SICKLE CELLS (BEAKER) (test mcqh=370) 2+ moderate BASIC METABOLIC [id number] 07:22:00 Test Item Value Reference Range Comments SODIUM (BEAKER) (test 140 meq/L 136-145 zbdi=071) POTASSIUM (BEAKER) (test 4.9 meq/L 3.5-5.1 ulpw=162) CHLORIDE (BEAKER) (test 105 meq/L 98-107 oznr=140) CO2 (BEAKER) (test 29 meq/L 22-29 vili=747) BLOOD UREA NITROGEN 20 mg/dL 7-21 (BEAKER) (test rlio=248) CREATININE (BEAKER) (test 0.72 mg/dL 0.57-1.25 sndo=937) GLUCOSE RANDOM (BEAKER) 100 mg/dL 70-105 (test ibcd=182) CALCIUM (BEAKER) (test 9.4 mg/dL 8.4-10.2 oqgf=534) EGFR (BEAKER) (test 110 mL/min/1.73 sq m ESTIMATED GFR IS NOT ucdi=3753) ACCURATE CREATININE CLEARANCE IN PREDICTING GLOMERULAR FILTRATION RATE. ESTIMATED GFR IS NOT APPLICABLE FOR DIALYSIS PATIENTS. Specimen slightly ictericCBC W/PLT COUNT & AUTO [id number] 06:46 :00 Test Item Value Reference Range Comments WHITE BLOOD CELL COUNT (BEAKER) (test uqyp=253) 17.0 K/ L 3.5-10.5 RED BLOOD CELL COUNT (BEAKER) (test fwsm=497) 2.18 M/ L 3.93-5.22 HEMOGLOBIN (BEAKER) (test hzmc=554) 6.4 GM/DL 11.2-15.7 HEMATOCRIT (BEAKER) (test dhyv=917) 20.3 % 34.1-44.9 MEAN CORPUSCULAR VOLUME (BEAKER) (test blkh=379) 93.1 fL 79.4-94.8 MEAN CORPUSCULAR HEMOGLOBIN (BEAKER) (test 29.4 pg 25.6-32.2 trys=616) MEAN CORPUSCULAR HEMOGLOBIN CONC (BEAKER) (test 31.5 GM/DL 32.2-35.5 vhan=522) RED CELL DISTRIBUTION WIDTH (BEAKER) (test 24.0 % 11.7-14.4 kjfk=519) PLATELET COUNT (BEAKER) (test kskl=873) 274 K/CU MM 150-450 MEAN PLATELET VOLUME (BEAKER) (test oksp=351) 10.9 fL 9.4-12.3 NUCLEATED RED BLOOD CELLS (BEAKER) (test 13 /100 WBC 0-0 liet=246) (CELLAVISION MANUAL DIFF)2018-02-02 06:46:00 Test Item Value Reference Range Comments NEUTROPHILS - REL (CELLAVISION)(BEAKER) (test 72 % qcbt=7785) LYMPHOCYTES - REL (CELLAVISION)(BEAKER) (test 20 % lwam=7456) MONOCYTES - REL (CELLAVISION)(BEAKER) (test 6 % ojkj=0492) EOSINOPHILS - REL (CELLAVISION)(BEAKER) (test 1 % hvff=2844) BANDS - REL (CELLAVISION)(BEAKER) (test 1 % 0-10 jany=3402) NEUTROPHILS - ABS (CELLAVISION)(BEAKER) (test 12.24 K/ul 1.56-6.13 fejz=5939) LYMPHOCYTES - ABS (CELLAVISION)(BEAKER) (test 3.40 K/ul 1.18-3.74 mbfe=5743) MONOCYTES - ABS (CELLAVISION)(BEAKER) (test 1.02 K/uL 0.24-0.36 jyqa=0017) EOSINOPHILS - ABS (CELLAVISION)(BEAKER) (test 0.17 K/uL 0.04-0.36 cufi=4196) BANDS - ABS (CELLAVISION)(BEAKER) (test 0.17 K/uL 0.00-0.80 pdcn=7336) TOTAL COUNTED (BEAKER) (test kvbu=6232) 100 MANUAL NRBC PER 100 CELLS (BEAKER) (test 30 /100 WBC 0-0 qtvb=8843) WBC MORPHOLOGY (BEAKER) (test lwln=660) Normal PLT MORPHOLOGY (BEAKER) (test jmdx=543) Normal POLYCHROMATOPHILLIC RBCS(BEAKER) (test qpdm=142) 3+ many ANISOCYTOSIS (BEAKER) (test rsaf=405) 2+ moderate MACROCYTES (BEAKER) (test tzrr=510) 2+ moderate TARGET CELLS (BEAKER) (test cahk=172) 1+ few SICKLE CELLS (BEAKER) (test bwed=846) 1+ few ARTIFACT (CELLAVISION)(BEAKER) (test xduq=7228) Present PLATELET CONCENTRATION (CELLAVISION)(BEAKER) Adequate (test kicu=5088) Received comment: User comments: Slide comments:BASIC METABOLIC [id number] 06:15:00 Test Item Value Reference Range Comments SODIUM (BEAKER) (test 139 meq/L 136-145 wiwl=921) POTASSIUM (BEAKER) (test 4.7 meq/L 3.5-5.1 kqrw=271) CHLORIDE (BEAKER) (test 105 meq/L 98-107 kyho=155) CO2 (BEAKER) (test 26 meq/L 22-29 pkoz=782) BLOOD UREA NITROGEN 10 mg/dL 7-21 (BEAKER) (test vben=120) CREATININE (BEAKER) (test 0.67 mg/dL 0.57-1.25 bdct=250) GLUCOSE RANDOM (BEAKER) 91 mg/dL 70-105 (test qaqo=131) CALCIUM (BEAKER) (test 9.3 mg/dL 8.4-10.2 mlzc=016) EGFR (BEAKER) (test 119 mL/min/1.73 sq m ESTIMATED GFR IS NOT twds=8752) ACCURATE CREATININE CLEARANCE IN PREDICTING GLOMERULAR FILTRATION RATE. ESTIMATED GFR IS NOT APPLICABLE FOR DIALYSIS PATIENTS. URINALYSIS W/ [id number] 20:17:00 Test Item Value Reference Range Comments COLOR (BEAKER) (test lrqn=197) Yellow CLARITY (BEAKER) (test hxpm=196) Hazy SPECIFIC GRAVITY UA (BEAKER) (test jynz=246) 1.009 1.001-1.035 PH UA (BEAKER) (test orjw=491) 5.5 5.0-8.0 PROTEIN UA (BEAKER) (test utuv=972) 20 mg/dL Negative GLUCOSE UA (BEAKER) (test qdtn=812) Negative Negative KETONES UA (BEAKER) (test xoyj=917) Negative Negative BILIRUBIN UA (BEAKER) (test psjc=729) Negative Negative BLOOD UA (BEAKER) (test ttgn=582) Small Negative NITRITE UA (BEAKER) (test ehaq=845) Negative Negative LEUKOCYTE ESTERASE UA (BEAKER) (test drcn=749) Small Negative UROBILINOGEN UA (BEAKER) (test fase=995) 0.2 mg/dL 0.2-1.0 RBC UA (BEAKER) (test vaiw=696) 1 /HPF WBC UA (BEAKER) (test fets=721) 4 /HPF BACTERIA (BEAKER) (test ozgj=088) Few MUCUS (BEAKER) (test zbrj=5278) Occasional SQUAMOUS EPITHELIAL (BEAKER) (test nkei=831) 8 /HPF SOURCE(BEAKER) (test kwjh=2700) Urine, Voided CBC W/PLT COUNT & AUTO [id number] 11:18:00 Test Item Value Reference Range Comments WHITE BLOOD CELL COUNT (BEAKER) (test xplg=940) 16.9 K/ L 3.5-10.5 RED BLOOD CELL COUNT (BEAKER) (test ayxg=045) 2.15 M/ L 3.93-5.22 HEMOGLOBIN (BEAKER) (test bjsv=461) 6.5 GM/DL 11.2-15.7 HEMATOCRIT (BEAKER) (test ijei=500) 20.6 % 34.1-44.9 MEAN CORPUSCULAR VOLUME (BEAKER) (test tcsj=147) 95.8 fL 79.4-94.8 MEAN CORPUSCULAR HEMOGLOBIN (BEAKER) (test 30.2 pg 25.6-32.2 tume=397) MEAN CORPUSCULAR HEMOGLOBIN CONC (BEAKER) (test 31.6 GM/DL 32.2-35.5 shen=080) RED CELL DISTRIBUTION WIDTH (BEAKER) (test 25.6 % 11.7-14.4 tjzk=909) PLATELET COUNT (BEAKER) (test skbd=848) 280 K/CU MM 150-450 MEAN PLATELET VOLUME (BEAKER) (test jgur=800) 10.7 fL 9.4-12.3 NUCLEATED RED BLOOD CELLS (BEAKER) (test 27 /100 WBC 0-0 vhim=413) (CELLAVISION MANUAL DIFF)2018-02-01 11:18:00 Test Item Value Reference Range Comments NEUTROPHILS - REL (CELLAVISION)(BEAKER) (test 61 % psmm=4229) LYMPHOCYTES - REL (CELLAVISION)(BEAKER) (test 27 % nveh=9322) MONOCYTES - REL (CELLAVISION)(BEAKER) (test 8 % oeic=1202) EOSINOPHILS - REL (CELLAVISION)(BEAKER) (test 4 % zgzq=6237) NEUTROPHILS - ABS (CELLAVISION)(BEAKER) (test 10.31 K/ul 1.56-6.13 gihf=7190) LYMPHOCYTES - ABS (CELLAVISION)(BEAKER) (test 4.56 K/ul 1.18-3.74 edeq=9739) MONOCYTES - ABS (CELLAVISION)(BEAKER) (test 1.35 K/uL 0.24-0.36 ceav=7998) EOSINOPHILS - ABS (CELLAVISION)(BEAKER) (test 0.68 K/uL 0.04-0.36 fmtv=1209) TOTAL COUNTED (BEAKER) (test hldy=3191) 100 MANUAL NRBC PER 100 CELLS (BEAKER) (test 28 /100 WBC 0-0 ltpm=5557) WBC MORPHOLOGY (BEAKER) (test ekef=975) Normal PLT MORPHOLOGY (BEAKER) (test hmkt=453) Normal POLYCHROMATOPHILLIC RBCS(BEAKER) (test dzfk=106) 2+ moderate ANISOCYTOSIS (BEAKER) (test rmtv=537) 2+ moderate TARGET CELLS (BEAKER) (test bchn=458) 2+ moderate SICKLE CELLS (BEAKER) (test wugb=669) 1+ few ARTIFACT (CELLAVISION)(BEAKER) (test fhoi=9376) Present PLATELET CONCENTRATION (CELLAVISION)(BEAKER) Adequate (test xqct=3961) Received comment: User comments: Slide comments:BASIC METABOLIC [id number] 06:15:00 Test Item Value Reference Range Comments SODIUM (BEAKER) (test 141 meq/L 136-145 rnwi=630) POTASSIUM (BEAKER) (test 4.2 meq/L 3.5-5.1 exmu=484) CHLORIDE (BEAKER) (test 108 meq/L 98-107 late=825) CO2 (BEAKER) (test 25 meq/L 22-29 hrgg=489) BLOOD UREA NITROGEN 11 mg/dL 7-21 (BEAKER) (test kupn=073) CREATININE (BEAKER) (test 0.73 mg/dL 0.57-1.25 nttl=872) GLUCOSE RANDOM (BEAKER) 93 mg/dL 70-105 (test sdcb=086) CALCIUM (BEAKER) (test 9.2 mg/dL 8.4-10.2 abpw=050) EGFR (BEAKER) (test 108 mL/min/1.73 sq m ESTIMATED GFR IS NOT fntr=5479) ACCURATE CREATININE CLEARANCE IN PREDICTING GLOMERULAR FILTRATION RATE. ESTIMATED GFR IS NOT APPLICABLE FOR DIALYSIS PATIENTS. CBC W/PLT COUNT & AUTO [id number] 15:02:00 Test Item Value Reference Range Comments WHITE BLOOD CELL COUNT (BEAKER) (test wwdg=904) 18.0 K/ L 3.5-10.5 RED BLOOD CELL COUNT (BEAKER) (test vhoi=077) 2.31 M/ L 3.93-5.22 HEMOGLOBIN (BEAKER) (test kzid=801) 7.0 GM/DL 11.2-15.7 HEMATOCRIT (BEAKER) (test ywhy=016) 22.4 % 34.1-44.9 MEAN CORPUSCULAR VOLUME (BEAKER) (test ecpm=182) 97.0 fL 79.4-94.8 MEAN CORPUSCULAR HEMOGLOBIN (BEAKER) (test 30.3 pg 25.6-32.2 jphu=660) MEAN CORPUSCULAR HEMOGLOBIN CONC (BEAKER) (test 31.3 GM/DL 32.2-35.5 rbmr=423) RED CELL DISTRIBUTION WIDTH (BEAKER) (test 27.9 % 11.7-14.4 ccai=092) PLATELET COUNT (BEAKER) (test pjlx=421) 337 K/CU MM 150-450 MEAN PLATELET VOLUME (BEAKER) (test aemt=580) 10.2 fL 9.4-12.3 NUCLEATED RED BLOOD CELLS (BEAKER) (test 63 /100 WBC 0-0 ipxu=280) NEUTROPHILS RELATIVE PERCENT (BEAKER) (test 45 % vgcm=989) LYMPHOCYTES RELATIVE PERCENT (BEAKER) (test 35 % pxda=893) MONOCYTES RELATIVE PERCENT (BEAKER) (test 16 % smwo=856) EOSINOPHILS RELATIVE PERCENT (BEAKER) (test 2 % vnpq=728) BASOPHILS RELATIVE PERCENT (BEAKER) (test 0 % dmki=456) NEUTROPHILS ABSOLUTE COUNT (BEAKER) (test 8.10 K/ L 1.56-6.13 uawe=013) LYMPHOCYTES ABSOLUTE COUNT (BEAKER) (test 6.24 K/ L 1.18-3.74 oqaf=929) MONOCYTES ABSOLUTE COUNT (BEAKER) (test 2.96 K/ L 0.24-0.36 shwm=231) EOSINOPHILS ABSOLUTE COUNT (BEAKER) (test 0.38 K/ L 0.04-0.36 fbhe=759) BASOPHILS ABSOLUTE COUNT (BEAKER) (test 0.06 K/ L 0.01-0.08 armw=034) IMMATURE GRANULOCYTES-RELATIVE PERCENT (BEAKER) 2 % 0-1 (test leqa=6877) (CELLAVISION MANUAL DIFF)2018-01-30 15:02:00 Test Item Value Reference Range Comments TOTAL COUNTED (BEAKER) (test bwpk=2596) WBC MORPHOLOGY (BEAKER) (test jbok=217) Normal PLT MORPHOLOGY (BEAKER) (test aiva=826) Normal POLYCHROMATOPHILLIC RBCS(BEAKER) (test kknm=928) 2+ moderate ANISOCYTOSIS (BEAKER) (test bwhv=905) 2+ moderate TARGET CELLS (BEAKER) (test uoqh=139) 2+ moderate SICKLE CELLS (BEAKER) (test fcjb=205) 1+ few BASIC METABOLIC [id number] 09:27:00 Test Item Value Reference Range Comments SODIUM (BEAKER) (test 141 meq/L 136-145 eweo=954) POTASSIUM (BEAKER) (test 4.0 meq/L 3.5-5.1 qnqs=024) CHLORIDE (BEAKER) (test 108 meq/L 98-107 flhj=926) CO2 (BEAKER) (test 24 meq/L 22-29 jdoz=472) BLOOD UREA NITROGEN 12 mg/dL 7-21 (BEAKER) (test hxpd=623) CREATININE (BEAKER) (test 0.80 mg/dL 0.57-1.25 tlnp=586) GLUCOSE RANDOM (BEAKER) 95 mg/dL 70-105 (test xocs=465) CALCIUM (BEAKER) (test 9.5 mg/dL 8.4-10.2 phbw=389) EGFR (BEAKER) (test 97 mL/min/1.73 sq m ESTIMATED GFR IS NOT umsy=2934) ACCURATE CREATININE CLEARANCE IN PREDICTING GLOMERULAR FILTRATION RATE. ESTIMATED GFR IS NOT APPLICABLE FOR DIALYSIS PATIENTS. [id number] 17:59:00 Test Item Value Reference Range Comments FERRITIN (BEAKER) (test wxmn=159) 93877 ng/mL 5-275 CBC W/PLT COUNT & AUTO [id number] 17:20:00 Test Item Value Reference Range Comments WHITE BLOOD CELL COUNT (BEAKER) (test jdqw=957) 19.9 K/ L 3.5-10.5 RED BLOOD CELL COUNT (BEAKER) (test xgkv=196) 1.53 M/ L 3.93-5.22 HEMOGLOBIN (BEAKER) (test oxfp=947) 5.0 GM/DL 11.2-15.7 HEMATOCRIT (BEAKER) (test lprz=087) 16.0 % 34.1-44.9 MEAN CORPUSCULAR VOLUME (BEAKER) (test klkw=189) 104.6 fL 79.4-94.8 MEAN CORPUSCULAR HEMOGLOBIN (BEAKER) (test 32.7 pg 25.6-32.2 vxmo=547) MEAN CORPUSCULAR HEMOGLOBIN CONC (BEAKER) (test 31.3 GM/DL 32.2-35.5 nqjg=938) RED CELL DISTRIBUTION WIDTH (BEAKER) (test 33.7 % 11.7-14.4 zztt=141) PLATELET COUNT (BEAKER) (test cxzr=844) 364 K/CU MM 150-450 MEAN PLATELET VOLUME (BEAKER) (test gaxe=082) 10.4 fL 9.4-12.3 NUCLEATED RED BLOOD CELLS (BEAKER) (test 62 /100 WBC 0-0 zxzs=971) RETICULOCYTE [id number] 17:20:00 Test Item Value Reference Range Comments RETICULOCYTE COUNT PCT (BEAKER) (test gjmx=075) > % 0.5-1.7 (CELLAVISION MANUAL DIFF)2018-01-29 17:20:00 Test Item Value Reference Range Comments TOTAL COUNTED (BEAKER) (test esrq=5520) RBC MORPHOLOGY (BEAKER) (test epjs=480) Normal WBC MORPHOLOGY (BEAKER) (test unvm=919) Normal PLT MORPHOLOGY (BEAKER) (test btcc=890) Normal LACTATE DEHYDROGENASE (LDH)2018-01-29 17:04:00 Test Item Value Reference Range Comments LACTATE DEHYDROGENASE (BEAKER) (test wwjq=331) 989 U/L 125-220 BASIC METABOLIC [id number] 17:04:00 Test Item Value Reference Range Comments SODIUM (BEAKER) (test 138 meq/L 136-145 wapr=873) POTASSIUM (BEAKER) (test 4.2 meq/L 3.5-5.1 cuvc=170) CHLORIDE (BEAKER) (test 109 meq/L 98-107 cedj=409) CO2 (BEAKER) (test 22 meq/L 22-29 gnfo=818) BLOOD UREA NITROGEN 11 mg/dL 7-21 (BEAKER) (test jmvy=118) CREATININE (BEAKER) (test 0.76 mg/dL 0.57-1.25 mshx=122) GLUCOSE RANDOM (BEAKER) 104 mg/dL 70-105 (test gxgx=694) CALCIUM (BEAKER) (test 9.5 mg/dL 8.4-10.2 srpk=590) EGFR (BEAKER) (test 103 mL/min/1.73 sq m ESTIMATED GFR IS NOT lonh=9835) ACCURATE CREATININE CLEARANCE IN PREDICTING GLOMERULAR FILTRATION RATE. ESTIMATED GFR IS NOT APPLICABLE FOR DIALYSIS PATIENTS. ANTI-MITOCHONDRIAL AB, REFLEX TO [id number] 11:03:00 Test Item Value Reference Range Comments SCAN RESULT (test xqew=[id number]) CALCIUM, [id number] 07:05:00 Test Item Value Reference Range Comments CALCIUM IONIZED (BEAKER) (test iyna=459) 1.10 mmol/L 1.12-1.27 PH, BLOOD (BEAKER) (test xjwt=8003) 7.30 [id number] 06:22:00 Test Item Value Reference Range Comments PHOSPHORUS (BEAKER) (test uksz=302) 4.7 mg/dL 2.3-4.7 [id number] 06:22:00 Test Item Value Reference Range Comments MAGNESIUM (BEAKER) (test uhqx=332) 1.4 mg/dL 1.6-2.6 BASIC METABOLIC [id number] 06:22:00 Test Item Value Reference Range Comments SODIUM (BEAKER) (test 135 meq/L 136-145 bkdm=200) POTASSIUM (BEAKER) (test 4.5 meq/L 3.5-5.1 hleh=884) CHLORIDE (BEAKER) (test 100 meq/L 98-107 hjqg=893) CO2 (BEAKER) (test 29 meq/L 22-29 cdzq=835) BLOOD UREA NITROGEN 19 mg/dL 7-21 (BEAKER) (test uqry=654) CREATININE (BEAKER) (test 0.76 mg/dL 0.57-1.25 fvtk=342) GLUCOSE RANDOM (BEAKER) 104 mg/dL 70-105 (test pyyf=062) CALCIUM (BEAKER) (test 9.3 mg/dL 8.4-10.2 xmds=320) EGFR (BEAKER) (test 103 mL/min/1.73 sq m ESTIMATED GFR IS NOT suzp=6454) ACCURATE CREATININE CLEARANCE IN PREDICTING GLOMERULAR FILTRATION RATE. ESTIMATED GFR IS NOT APPLICABLE FOR DIALYSIS PATIENTS. CREATINE KINASE (CK)2017-11-24 08:12:00 Test Item Value Reference Range Comments CREATINE KINASE TOTAL (BEAKER) (test ubpi=756) 8 U/L 29-200 URIC [id number] 08:01:00 Test Item Value Reference Range Comments URIC ACID (BEAKER) (test ojlu=434) 4.8 mg/dL 2.6-7.2 [id number] 08:01:00 Test Item Value Reference Range Comments MAGNESIUM (BEAKER) (test aplq=051) 1.5 mg/dL 1.6-2.6 [id number] 08:01:00 Test Item Value Reference Range Comments PHOSPHORUS (BEAKER) (test nnoh=847) 5.3 mg/dL 2.3-4.7 BASIC METABOLIC [id number] 08:01:00 Test Item Value Reference Range Comments SODIUM (BEAKER) (test 138 meq/L 136-145 lwxt=309) POTASSIUM (BEAKER) (test 4.9 meq/L 3.5-5.1 puxo=775) CHLORIDE (BEAKER) (test 100 meq/L 98-107 zcsn=840) CO2 (BEAKER) (test 28 meq/L 22-29 vomj=555) BLOOD UREA NITROGEN 22 mg/dL 7-21 (BEAKER) (test oenm=410) CREATININE (BEAKER) (test 0.80 mg/dL 0.57-1.25 lbhi=161) GLUCOSE RANDOM (BEAKER) 102 mg/dL 70-105 (test lyss=141) CALCIUM (BEAKER) (test 9.3 mg/dL 8.4-10.2 xskv=567) EGFR (BEAKER) (test 97 mL/min/1.73 sq m ESTIMATED GFR IS NOT fufv=6552) ACCURATE CREATININE CLEARANCE IN PREDICTING GLOMERULAR FILTRATION RATE. ESTIMATED GFR IS NOT APPLICABLE FOR DIALYSIS PATIENTS. LACTATE DEHYDROGENASE (LDH)2017-11-24 08:01:00 Test Item Value Reference Range Comments LACTATE DEHYDROGENASE (BEAKER) (test hqle=934) 489 U/L 125-220 [id number] 18:07:00 Test Item Value Reference Range Comments POTASSIUM (BEAKER) (test rtnt=468) 5.5 meq/L 3.5-5.1 Call if K > 5.4 to renal [id number] 1032CALCIUM, [id number] 06:51:00 Test Item Value Reference Range Comments CALCIUM IONIZED (BEAKER) (test kdrt=264) 1.08 mmol/L 1.12-1.27 PH, BLOOD (BEAKER) (test ysug=9144) 7.35 CBC W/PLT COUNT & AUTO [id number] 06:25:00 Test Item Value Reference Range Comments WHITE BLOOD CELL COUNT (BEAKER) (test xcds=559) 18.3 K/ L 3.5-10.5 RED BLOOD CELL COUNT (BEAKER) (test erup=895) 2.30 M/ L 3.93-5.22 HEMOGLOBIN (BEAKER) (test htus=211) 6.5 GM/DL 11.2-15.7 HEMATOCRIT (BEAKER) (test mnjg=098) 21.1 % 34.1-44.9 MEAN CORPUSCULAR VOLUME (BEAKER) (test xdgc=265) 91.7 fL 79.4-94.8 MEAN CORPUSCULAR HEMOGLOBIN (BEAKER) (test 28.3 pg 25.6-32.2 dque=150) MEAN CORPUSCULAR HEMOGLOBIN CONC (BEAKER) (test 30.8 GM/DL 32.2-35.5 swaq=372) RED CELL DISTRIBUTION WIDTH (BEAKER) (test 21.2 % 11.7-14.4 clfv=058) PLATELET COUNT (BEAKER) (test tqwk=192) 414 K/CU MM 150-450 MEAN PLATELET VOLUME (BEAKER) (test nltj=557) 11.5 fL 9.4-12.3 NUCLEATED RED BLOOD CELLS (BEAKER) (test 0 /100 WBC 0-0 xwuf=786) NEUTROPHILS RELATIVE PERCENT (BEAKER) (test 53 % haoh=985) LYMPHOCYTES RELATIVE PERCENT (BEAKER) (test 25 % muns=782) MONOCYTES RELATIVE PERCENT (BEAKER) (test 19 % zimk=394) EOSINOPHILS RELATIVE PERCENT (BEAKER) (test 2 % xpls=556) BASOPHILS RELATIVE PERCENT (BEAKER) (test 0 % eiqc=839) NEUTROPHILS ABSOLUTE COUNT (BEAKER) (test 9.74 K/ L 1.56-6.13 bgnn=939) LYMPHOCYTES ABSOLUTE COUNT (BEAKER) (test 4.57 K/ L 1.18-3.74 zuai=367) MONOCYTES ABSOLUTE COUNT (BEAKER) (test 3.51 K/ L 0.24-0.36 jkay=176) EOSINOPHILS ABSOLUTE COUNT (BEAKER) (test 0.29 K/ L 0.04-0.36 zhhz=633) BASOPHILS ABSOLUTE COUNT (BEAKER) (test 0.07 K/ L 0.01-0.08 clwy=534) IMMATURE GRANULOCYTES-RELATIVE PERCENT (BEAKER) 1 % 0-1 (test qlmc=1591) [id number] 05:35:00 Test Item Value Reference Range Comments PHOSPHORUS (BEAKER) (test qouv=128) 4.4 mg/dL 2.3-4.7 [id number] 05:35:00 Test Item Value Reference Range Comments MAGNESIUM (BEAKER) (test dvoo=285) 1.3 mg/dL 1.6-2.6 BASIC METABOLIC [id number] 05:35:00 Test Item Value Reference Range Comments SODIUM (BEAKER) (test 136 meq/L 136-145 bdvp=466) POTASSIUM (BEAKER) (test 5.4 meq/L 3.5-5.1 ilpp=901) CHLORIDE (BEAKER) (test 97 meq/L 98-107 iocl=015) CO2 (BEAKER) (test 31 meq/L 22-29 ohtv=184) BLOOD UREA NITROGEN 20 mg/dL 7-21 (BEAKER) (test plqc=112) CREATININE (BEAKER) (test 0.75 mg/dL 0.57-1.25 dhow=991) GLUCOSE RANDOM (BEAKER) 81 mg/dL 70-105 (test uvcr=987) CALCIUM (BEAKER) (test 9.5 mg/dL 8.4-10.2 dfkz=872) EGFR (BEAKER) (test 105 mL/min/1.73 sq m ESTIMATED GFR IS NOT bjvp=9516) ACCURATE CREATININE CLEARANCE IN PREDICTING GLOMERULAR FILTRATION RATE. ESTIMATED GFR IS NOT APPLICABLE FOR DIALYSIS PATIENTS. [id number] 16:19:00 Test Item Value Reference Range Comments POTASSIUM (BEAKER) (test rgxs=447) 5.2 meq/L 3.5-5.1 Repeat after 3 hours kayexalate was given; call result [id number] 12:53:00 Test Item Value Reference Range Comments SODIUM (BEAKER) (test lflk=922) 137 meq/L 136-145 POTASSIUM (BEAKER) (test fmlh=701) 5.4 meq/L 3.5-5.1 CHLORIDE (BEAKER) (test unuo=387) 100 meq/L 98-107 CO2 (BEAKER) (test sdez=962) 30 meq/L 22-29 Call results [id number] 11:14:00 Test Item Value Reference Range Comments POTASSIUM (BEAKER) (test ijgb=659) 5.8 meq/L 3.5-5.1 [id number] 06:40:00 Test Item Value Reference Range Comments PHOSPHORUS (BEAKER) (test ujks=406) 5.4 mg/dL 2.3-4.7 [id number] 06:40:00 Test Item Value Reference Range Comments MAGNESIUM (BEAKER) (test qedr=638) 1.6 mg/dL 1.6-2.6 CALCIUM, [id number] 06:27:00 Test Item Value Reference Range Comments CALCIUM IONIZED (BEAKER) (test rjkp=335) 0.99 mmol/L 1.12-1.27 PH, BLOOD (BEAKER) (test lwgl=1010) 7.43 CBC W/PLT COUNT & AUTO [id number] 05:53:00 Test Item Value Reference Range Comments WHITE BLOOD CELL COUNT (BEAKER) (test fohe=847) 16.2 K/ L 3.5-10.5 RED BLOOD CELL COUNT (BEAKER) (test wahj=190) 2.38 M/ L 3.93-5.22 HEMOGLOBIN (BEAKER) (test fglt=361) 7.0 GM/DL 11.2-15.7 HEMATOCRIT (BEAKER) (test mdys=557) 22.2 % 34.1-44.9 MEAN CORPUSCULAR VOLUME (BEAKER) (test oiqy=914) 93.3 fL 79.4-94.8 MEAN CORPUSCULAR HEMOGLOBIN (BEAKER) (test 29.4 pg 25.6-32.2 zqwy=489) MEAN CORPUSCULAR HEMOGLOBIN CONC (BEAKER) (test 31.5 GM/DL 32.2-35.5 evuc=331) RED CELL DISTRIBUTION WIDTH (BEAKER) (test 21.3 % 11.7-14.4 vilq=313) PLATELET COUNT (BEAKER) (test jltk=721) 390 K/CU MM 150-450 MEAN PLATELET VOLUME (BEAKER) (test buuu=927) 11.8 fL 9.4-12.3 NUCLEATED RED BLOOD CELLS (BEAKER) (test 0 /100 WBC 0-0 tjfj=362) NEUTROPHILS RELATIVE PERCENT (BEAKER) (test 58 % pquq=359) LYMPHOCYTES RELATIVE PERCENT (BEAKER) (test 23 % vnnz=748) MONOCYTES RELATIVE PERCENT (BEAKER) (test 17 % qsey=107) EOSINOPHILS RELATIVE PERCENT (BEAKER) (test 2 % heds=163) BASOPHILS RELATIVE PERCENT (BEAKER) (test 0 % ikws=898) NEUTROPHILS ABSOLUTE COUNT (BEAKER) (test 9.31 K/ L 1.56-6.13 becq=594) LYMPHOCYTES ABSOLUTE COUNT (BEAKER) (test 3.65 K/ L 1.18-3.74 zcur=552) MONOCYTES ABSOLUTE COUNT (BEAKER) (test 2.70 K/ L 0.24-0.36 yxez=142) EOSINOPHILS ABSOLUTE COUNT (BEAKER) (test 0.36 K/ L 0.04-0.36 rgqv=933) BASOPHILS ABSOLUTE COUNT (BEAKER) (test 0.04 K/ L 0.01-0.08 seaj=405) IMMATURE GRANULOCYTES-RELATIVE PERCENT (BEAKER) 1 % 0-1 (test zvex=3181) BASIC METABOLIC [id number] 17:35:00 Test Item Value Reference Range Comments SODIUM (BEAKER) (test 133 meq/L 136-145 xdsh=522) POTASSIUM (BEAKER) (test 5.4 meq/L 3.5-5.1 yfxp=563) CHLORIDE (BEAKER) (test 99 meq/L 98-107 oxhw=180) CO2 (BEAKER) (test 26 meq/L 22-29 uzvc=744) BLOOD UREA NITROGEN 23 mg/dL 7-21 (BEAKER) (test uwwv=327) CREATININE (BEAKER) (test 0.83 mg/dL 0.57-1.25 cder=461) GLUCOSE RANDOM (BEAKER) 94 mg/dL 70-105 (test aoul=440) CALCIUM (BEAKER) (test 9.2 mg/dL 8.4-10.2 pdzx=260) EGFR (BEAKER) (test 93 mL/min/1.73 sq m ESTIMATED GFR IS NOT hrxr=6200) ACCURATE CREATININE CLEARANCE IN PREDICTING GLOMERULAR FILTRATION RATE. ESTIMATED GFR IS NOT APPLICABLE FOR DIALYSIS PATIENTS. [id number] 06:33:00 Test Item Value Reference Range Comments PHOSPHORUS (BEAKER) (test mbzx=061) 5.3 mg/dL 2.3-4.7 [id number] 06:33:00 Test Item Value Reference Range Comments MAGNESIUM (BEAKER) (test lfrb=334) 1.6 mg/dL 1.6-2.6 BASIC METABOLIC [id number] 06:33:00 Test Item Value Reference Range Comments SODIUM (BEAKER) (test 133 meq/L 136-145 mzoq=159) POTASSIUM (BEAKER) (test 5.2 meq/L 3.5-5.1 aiyc=483) CHLORIDE (BEAKER) (test 97 meq/L 98-107 yntg=279) CO2 (BEAKER) (test 29 meq/L 22-29 dijr=397) BLOOD UREA NITROGEN 23 mg/dL 7-21 (BEAKER) (test iofr=398) CREATININE (BEAKER) (test 0.77 mg/dL 0.57-1.25 uvnq=683) GLUCOSE RANDOM (BEAKER) 92 mg/dL 70-105 (test oxst=600) CALCIUM (BEAKER) (test 9.4 mg/dL 8.4-10.2 tadg=377) EGFR (BEAKER) (test 102 mL/min/1.73 sq m ESTIMATED GFR IS NOT axly=6931) ACCURATE CREATININE CLEARANCE IN PREDICTING GLOMERULAR FILTRATION RATE. ESTIMATED GFR IS NOT APPLICABLE FOR DIALYSIS PATIENTS. CALCIUM, [id number] 06:22:00 Test Item Value Reference Range Comments CALCIUM IONIZED (BEAKER) (test suhp=003) 1.18 mmol/L 1.12-1.27 PH, BLOOD (BEAKER) (test dsjw=9153) 7.32 B-TYPE NATRIURETIC FACTOR (BNP)2017-11-21 06:19:00 Test Item Value Reference Range Comments B-TYPE NATRIURETIC PEPTIDE (BEAKER) (test 120 pg/mL 0-100 vckq=032) CBC W/PLT COUNT & AUTO [id number] 05:59:00 Test Item Value Reference Range Comments WHITE BLOOD CELL COUNT (BEAKER) (test dzdt=549) 17.4 K/ L 3.5-10.5 RED BLOOD CELL COUNT (BEAKER) (test qdem=819) 2.32 M/ L 3.93-5.22 HEMOGLOBIN (BEAKER) (test otll=149) 6.7 GM/DL 11.2-15.7 HEMATOCRIT (BEAKER) (test qobc=798) 21.6 % 34.1-44.9 MEAN CORPUSCULAR VOLUME (BEAKER) (test ydwy=305) 93.1 fL 79.4-94.8 MEAN CORPUSCULAR HEMOGLOBIN (BEAKER) (test 28.9 pg 25.6-32.2 hiri=694) MEAN CORPUSCULAR HEMOGLOBIN CONC (BEAKER) (test 31.0 GM/DL 32.2-35.5 cgpf=786) RED CELL DISTRIBUTION WIDTH (BEAKER) (test 20.9 % 11.7-14.4 xuqg=420) PLATELET COUNT (BEAKER) (test qefz=855) 367 K/CU MM 150-450 MEAN PLATELET VOLUME (BEAKER) (test jusv=492) 12.1 fL 9.4-12.3 NUCLEATED RED BLOOD CELLS (BEAKER) (test 0 /100 WBC 0-0 ekqq=713) NEUTROPHILS RELATIVE PERCENT (BEAKER) (test 58 % ouun=087) LYMPHOCYTES RELATIVE PERCENT (BEAKER) (test 23 % lxam=115) MONOCYTES RELATIVE PERCENT (BEAKER) (test 16 % yzxx=972) EOSINOPHILS RELATIVE PERCENT (BEAKER) (test 3 % hoaf=258) BASOPHILS RELATIVE PERCENT (BEAKER) (test 1 % zbyp=721) NEUTROPHILS ABSOLUTE COUNT (BEAKER) (test 10.09 K/ L 1.56-6.13 dwla=453) LYMPHOCYTES ABSOLUTE COUNT (BEAKER) (test 3.92 K/ L 1.18-3.74 ggir=048) MONOCYTES ABSOLUTE COUNT (BEAKER) (test 2.71 K/ L 0.24-0.36 nhqw=274) EOSINOPHILS ABSOLUTE COUNT (BEAKER) (test 0.46 K/ L 0.04-0.36 hinz=206) BASOPHILS ABSOLUTE COUNT (BEAKER) (test 0.08 K/ L 0.01-0.08 oerr=919) IMMATURE GRANULOCYTES-RELATIVE PERCENT (BEAKER) 1 % 0-1 (test wshs=6006) BLOOD GAS, [id number] 07:22:00 Test Item Value Reference Range Comments PH VENOUS (BEAKER) (test qbic=721) 7.34 7.32-7.42 PCO2 VENOUS (BEAKER) (test asda=963) 63 mmHg 41-51 PO2 VENOUS (BEAKER) (test bugd=403) 133 mmHg 25-40 O2 SATURATION VENOUS (BEAKER) (test vslx=978) 98.4 % 40.0-70.0 HCO3 VENOUS (BEAKER) (test jwho=876) 33 mmol/L 21-29 BASE EXCESS VENOUS (BEAKER) (test dhjw=970) 6.6 mmol/L -2.0-3.0 PATIENT TEMPERATURE (BEAKER) (test asei=2430) 37.0 C FIO2 (BEAKER) (test rvuf=1427) 21.0 % CALCIUM, [id number] 07:20:00 Test Item Value Reference Range Comments CALCIUM IONIZED (BEAKER) (test nlzk=654) 1.10 mmol/L 1.12-1.27 PH, BLOOD (BEAKER) (test plqt=5513) 7.33 [id number] 07:18:00 Test Item Value Reference Range Comments PHOSPHORUS (BEAKER) (test xbsy=475) 4.8 mg/dL 2.3-4.7 [id number] 07:18:00 Test Item Value Reference Range Comments MAGNESIUM (BEAKER) (test kzjc=470) 1.6 mg/dL 1.6-2.6 BASIC METABOLIC [id number] 07:18:00 Test Item Value Reference Range Comments SODIUM (BEAKER) (test 137 meq/L 136-145 rnqm=007) POTASSIUM (BEAKER) (test 4.8 meq/L 3.5-5.1 wuyy=945) CHLORIDE (BEAKER) (test 99 meq/L 98-107 sopp=224) CO2 (BEAKER) (test 31 meq/L 22-29 dcds=983) BLOOD UREA NITROGEN 20 mg/dL 7-21 (BEAKER) (test owdr=160) CREATININE (BEAKER) (test 0.83 mg/dL 0.57-1.25 tgrj=800) GLUCOSE RANDOM (BEAKER) 117 mg/dL 70-105 (test gkme=926) CALCIUM (BEAKER) (test 9.5 mg/dL 8.4-10.2 icud=857) EGFR (BEAKER) (test 93 mL/min/1.73 sq m ESTIMATED GFR IS NOT qdzq=0561) ACCURATE CREATININE CLEARANCE IN PREDICTING GLOMERULAR FILTRATION RATE. ESTIMATED GFR IS NOT APPLICABLE FOR DIALYSIS PATIENTS. CBC W/PLT COUNT & AUTO [id number] 07:14:00 Test Item Value Reference Range Comments WHITE BLOOD CELL COUNT (BEAKER) (test umks=296) 16.7 K/ L 3.5-10.5 RED BLOOD CELL COUNT (BEAKER) (test gdvi=489) 2.39 M/ L 3.93-5.22 HEMOGLOBIN (BEAKER) (test ymoq=901) 6.9 GM/DL 11.2-15.7 HEMATOCRIT (BEAKER) (test hlvw=591) 22.3 % 34.1-44.9 MEAN CORPUSCULAR VOLUME (BEAKER) (test eghx=224) 93.3 fL 79.4-94.8 MEAN CORPUSCULAR HEMOGLOBIN (BEAKER) (test 28.9 pg 25.6-32.2 rsdj=101) MEAN CORPUSCULAR HEMOGLOBIN CONC (BEAKER) (test 30.9 GM/DL 32.2-35.5 usmf=792) RED CELL DISTRIBUTION WIDTH (BEAKER) (test 21.1 % 11.7-14.4 nedg=596) PLATELET COUNT (BEAKER) (test dtdg=212) 344 K/CU MM 150-450 MEAN PLATELET VOLUME (BEAKER) (test yuuk=711) 11.7 fL 9.4-12.3 NUCLEATED RED BLOOD CELLS (BEAKER) (test 0 /100 WBC 0-0 qmib=807) NEUTROPHILS RELATIVE PERCENT (BEAKER) (test 60 % djvt=375) LYMPHOCYTES RELATIVE PERCENT (BEAKER) (test 23 % jhxc=613) MONOCYTES RELATIVE PERCENT (BEAKER) (test 14 % vrup=980) EOSINOPHILS RELATIVE PERCENT (BEAKER) (test 3 % rafo=555) BASOPHILS RELATIVE PERCENT (BEAKER) (test 0 % dtvw=496) NEUTROPHILS ABSOLUTE COUNT (BEAKER) (test 9.95 K/ L 1.56-6.13 rvqq=646) LYMPHOCYTES ABSOLUTE COUNT (BEAKER) (test 3.92 K/ L 1.18-3.74 atkm=687) MONOCYTES ABSOLUTE COUNT (BEAKER) (test 2.29 K/ L 0.24-0.36 bhdq=307) EOSINOPHILS ABSOLUTE COUNT (BEAKER) (test 0.45 K/ L 0.04-0.36 qxlg=846) BASOPHILS ABSOLUTE COUNT (BEAKER) (test 0.04 K/ L 0.01-0.08 idpd=089) IMMATURE GRANULOCYTES-RELATIVE PERCENT (BEAKER) 0 % 0-1 (test whpx=9765) [id number] 11:18:00 Test Item Value Reference Range Comments FERRITIN (BEAKER) (test eaug=332) [address] ng/mL 5-275 [id number] 07:10:00 Test Item Value Reference Range Comments MAGNESIUM (BEAKER) (test obwb=437) 2.0 mg/dL 1.6-2.6 BASIC METABOLIC [id number] 07:10:00 Test Item Value Reference Range Comments SODIUM (BEAKER) (test 137 meq/L 136-145 xrbi=467) POTASSIUM (BEAKER) (test 4.5 meq/L 3.5-5.1 clvu=214) CHLORIDE (BEAKER) (test 99 meq/L 98-107 jhib=482) CO2 (BEAKER) (test 35 meq/L 22-29 ociu=460) BLOOD UREA NITROGEN 18 mg/dL 7-21 (BEAKER) (test khtg=762) CREATININE (BEAKER) (test 0.78 mg/dL 0.57-1.25 ytmm=634) GLUCOSE RANDOM (BEAKER) 102 mg/dL 70-105 (test jeaq=762) CALCIUM (BEAKER) (test 9.4 mg/dL 8.4-10.2 yiee=235) EGFR (BEAKER) (test 100 mL/min/1.73 sq m ESTIMATED GFR IS NOT mbrh=1915) ACCURATE CREATININE CLEARANCE IN PREDICTING GLOMERULAR FILTRATION RATE. ESTIMATED GFR IS NOT APPLICABLE FOR DIALYSIS PATIENTS. CBC (HEMOGRAM ONLY)2017-11-19 07:06:00 Test Item Value Reference Range Comments WHITE BLOOD CELL COUNT (BEAKER) (test blcl=563) 15.3 K/ L 3.5-10.5 RED BLOOD CELL COUNT (BEAKER) (test rypr=488) 2.42 M/ L 3.93-5.22 HEMOGLOBIN (BEAKER) (test lztv=900) 7.1 GM/DL 11.2-15.7 HEMATOCRIT (BEAKER) (test bsqd=982) 22.5 % 34.1-44.9 MEAN CORPUSCULAR VOLUME (BEAKER) (test xehu=827) 93.0 fL 79.4-94.8 MEAN CORPUSCULAR HEMOGLOBIN (BEAKER) (test 29.3 pg 25.6-32.2 udcx=872) MEAN CORPUSCULAR HEMOGLOBIN CONC (BEAKER) (test 31.6 GM/DL 32.2-35.5 kkxc=402) RED CELL DISTRIBUTION WIDTH (BEAKER) (test 20.9 % 11.7-14.4 mlcu=733) PLATELET COUNT (BEAKER) (test duqt=299) 324 K/CU MM 150-450 MEAN PLATELET VOLUME (BEAKER) (test sntl=386) 11.8 fL 9.4-12.3 NUCLEATED RED BLOOD CELLS (BEAKER) (test 1 /100 WBC 0-0 krmx=339) BLOOD [id number] 06:00:00 Test Item Value Reference Range Comments CULTURE (BEAKER) (test bjhm=8848) No growth in 5 days ANTI-NUCLEAR ANTIBODY (AMARILYS)2017-11-17 14:21:00 Test Item Value Reference Range Comments ANTI-NUCLEAR ANTIBODY (AMARILYS) (BEAKER) (test Positive Negative ywxn=194) AMARILYS TITER AND [id number] 14:21:00 Test Item Value Reference Range Comments AMARILYS TITER (BEAKER) (test :160 wode=0018) AMARILYS PATTERN (BEAKER) (test Multiple nuclear dots pattern fvlu=8311) [id number] 07:16:00 Test Item Value Reference Range Comments PHOSPHORUS (BEAKER) (test rmxf=751) 4.5 mg/dL 2.3-4.7 [id number] 07:16:00 Test Item Value Reference Range Comments MAGNESIUM (BEAKER) (test tcrz=473) 1.4 mg/dL 1.6-2.6 BASIC METABOLIC [id number] 07:16:00 Test Item Value Reference Range Comments SODIUM (BEAKER) (test 141 meq/L 136-145 ecbp=652) POTASSIUM (BEAKER) (test 4.2 meq/L 3.5-5.1 cfuq=504) CHLORIDE (BEAKER) (test 98 meq/L 98-107 xtrh=214) CO2 (BEAKER) (test 34 meq/L 22-29 dwtd=956) BLOOD UREA NITROGEN 21 mg/dL 7-21 (BEAKER) (test wqun=738) CREATININE (BEAKER) (test 0.85 mg/dL 0.57-1.25 kxcb=339) GLUCOSE RANDOM (BEAKER) 98 mg/dL 70-105 (test ynmu=720) CALCIUM (BEAKER) (test 9.2 mg/dL 8.4-10.2 ltdt=383) EGFR (BEAKER) (test 91 mL/min/1.73 sq m ESTIMATED GFR IS NOT lyne=6857) ACCURATE CREATININE CLEARANCE IN PREDICTING GLOMERULAR FILTRATION RATE. ESTIMATED GFR IS NOT APPLICABLE FOR DIALYSIS PATIENTS. HEPATIC FUNCTION [id number] 07:16:00 Test Item Value Reference Range Comments TOTAL PROTEIN (BEAKER) (test ijfu=721) 8.3 gm/dL 6.0-8.3 ALBUMIN (BEAKER) (test awod=3998) 3.0 g/dL 3.5-5.0 BILIRUBIN TOTAL (BEAKER) (test hbtb=690) 1.3 mg/dL 0.2-1.2 BILIRUBIN DIRECT (BEAKER) (test npcg=178) 0.7 mg/dL 0.1-0.5 ALKALINE PHOSPHATASE (BEAKER) (test sllt=449) 217 U/L 40-150 AST (SGOT) (BEAKER) (test ryzc=589) 106 U/L 5-34 ALT (SGPT) (BEAKER) (test hqsx=393) 46 U/L 6-55 CALCIUM, [id number] 06:50:00 Test Item Value Reference Range Comments CALCIUM IONIZED (BEAKER) (test txwd=554) 1.11 mmol/L 1.12-1.27 PH, BLOOD (BEAKER) (test vmcu=3687) 7.34 CBC W/PLT COUNT & AUTO [id number] 06:09:00 Test Item Value Reference Range Comments WHITE BLOOD CELL COUNT (BEAKER) (test iusu=203) 16.8 K/ L 3.5-10.5 RED BLOOD CELL COUNT (BEAKER) (test akaz=357) 2.53 M/ L 3.93-5.22 HEMOGLOBIN (BEAKER) (test nnif=787) 7.3 GM/DL 11.2-15.7 HEMATOCRIT (BEAKER) (test tynv=235) 23.3 % 34.1-44.9 MEAN CORPUSCULAR VOLUME (BEAKER) (test ygfb=487) 92.1 fL 79.4-94.8 MEAN CORPUSCULAR HEMOGLOBIN (BEAKER) (test 28.9 pg 25.6-32.2 btdn=009) MEAN CORPUSCULAR HEMOGLOBIN CONC (BEAKER) (test 31.3 GM/DL 32.2-35.5 lybk=416) RED CELL DISTRIBUTION WIDTH (BEAKER) (test 20.2 % 11.7-14.4 khqn=698) PLATELET COUNT (BEAKER) (test bwgp=985) 305 K/CU MM 150-450 MEAN PLATELET VOLUME (BEAKER) (test hfkg=829) 12.0 fL 9.4-12.3 NUCLEATED RED BLOOD CELLS (BEAKER) (test 1 /100 WBC 0-0 pzso=183) NEUTROPHILS RELATIVE PERCENT (BEAKER) (test 66 % kovg=920) LYMPHOCYTES RELATIVE PERCENT (BEAKER) (test 20 % uawo=581) MONOCYTES RELATIVE PERCENT (BEAKER) (test 11 % vkvo=753) EOSINOPHILS RELATIVE PERCENT (BEAKER) (test 3 % laeh=271) BASOPHILS RELATIVE PERCENT (BEAKER) (test 0 % syga=113) NEUTROPHILS ABSOLUTE COUNT (BEAKER) (test 10.99 K/ L 1.56-6.13 mtuv=928) LYMPHOCYTES ABSOLUTE COUNT (BEAKER) (test 3.29 K/ L 1.18-3.74 wxra=482) MONOCYTES ABSOLUTE COUNT (BEAKER) (test 1.89 K/ L 0.24-0.36 oart=455) EOSINOPHILS ABSOLUTE COUNT (BEAKER) (test 0.48 K/ L 0.04-0.36 wfix=562) BASOPHILS ABSOLUTE COUNT (BEAKER) (test 0.05 K/ L 0.01-0.08 mrss=713) IMMATURE GRANULOCYTES-RELATIVE PERCENT (BEAKER) 0 % 0-1 (test nyjd=3808) HEPATITIS PANEL, [id number] 14:32:00 Test Item Value Reference Range Comments HEPATITIS A IGM ANTIBODY (BEAKER) (test Nonreactive Nonreactive qofg=930) HEPATITIS B CORE IGM ANTIBODY (BEAKER) (test Nonreactive Nonreactive ygjp=695) HEPATITIS C ANTIBODY (BEAKER) (test kmln=901) Nonreactive Nonreactive HEPATITIS B SURFACE ANTIGEN (2) (BEAKER) (test Nonreactive Nonreactive pnvy=9604) RAD, MANDIBLE, LESS THAN 4 [id number] 12:28:00Reason for exam:->fever, dental cariesFINAL REPORT Mandible [...] air cells are well aerated. Signed: Anselmo CainSourceThought Verified Date/Time: 11/16/2017 12:28:43 Reading Location: [facility] Radiology Reading Room RAD, CHEST, 2 [id number] 10:47:00Reason for exam:-> fever, chest painFINAL REPORT [...] No pneumothorax is seen. Signed: Anselmo Cain OleOleepSourceThought Verified Date/Time: 11/16/2017 10:47:19 Reading Location: [facility] Radiology Reading Room URINE [id number] 09:53:00 Test Item Value Reference Range Comments CULTURE (BEAKER) (test diqu=7665) >100,000 col/mL skin valentino CBC W/PLT COUNT & AUTO [id number] 09:20:00 Test Item Value Reference Range Comments WHITE BLOOD CELL COUNT (BEAKER) (test lxgq=034) 18.6 K/ L 3.5-10.5 RED BLOOD CELL COUNT (BEAKER) (test sgal=847) 2.63 M/ L 3.93-5.22 HEMOGLOBIN (BEAKER) (test qbjc=987) 7.6 GM/DL 11.2-15.7 HEMATOCRIT (BEAKER) (test sano=347) 23.8 % 34.1-44.9 MEAN CORPUSCULAR VOLUME (BEAKER) (test jekp=682) 90.5 fL 79.4-94.8 MEAN CORPUSCULAR HEMOGLOBIN (BEAKER) (test 28.9 pg 25.6-32.2 hgwi=433) MEAN CORPUSCULAR HEMOGLOBIN CONC (BEAKER) (test 31.9 GM/DL 32.2-35.5 uanl=487) RED CELL DISTRIBUTION WIDTH (BEAKER) (test 19.9 % 11.7-14.4 jqcv=846) PLATELET COUNT (BEAKER) (test cpgf=152) 330 K/CU MM 150-450 MEAN PLATELET VOLUME (BEAKER) (test ecfi=023) 11.9 fL 9.4-12.3 NUCLEATED RED BLOOD CELLS (BEAKER) (test 1 /100 WBC 0-0 fcwe=716) NEUTROPHILS RELATIVE PERCENT (BEAKER) (test 65 % onkw=351) LYMPHOCYTES RELATIVE PERCENT (BEAKER) (test 22 % vpyr=177) MONOCYTES RELATIVE PERCENT (BEAKER) (test 10 % eqip=535) EOSINOPHILS RELATIVE PERCENT (BEAKER) (test 2 % oesb=349) BASOPHILS RELATIVE PERCENT (BEAKER) (test 0 % fuhv=374) NEUTROPHILS ABSOLUTE COUNT (BEAKER) (test 12.09 K/ L 1.56-6.13 irnu=255) LYMPHOCYTES ABSOLUTE COUNT (BEAKER) (test 4.02 K/ L 1.18-3.74 lria=645) MONOCYTES ABSOLUTE COUNT (BEAKER) (test 1.90 K/ L 0.24-0.36 tmfu=212) EOSINOPHILS ABSOLUTE COUNT (BEAKER) (test 0.41 K/ L 0.04-0.36 miww=181) BASOPHILS ABSOLUTE COUNT (BEAKER) (test 0.05 K/ L 0.01-0.08 wzjv=652) IMMATURE GRANULOCYTES-RELATIVE PERCENT (BEAKER) 0 % 0-1 (test vssg=7938) (MANUAL DIFFERENTIAL)2017-11-16 09:20:00 Test Item Value Reference Range Comments TOTAL COUNTED (BEAKER) (test stif=1426) WBC MORPHOLOGY (BEAKER) (test jryh=648) Normal PLT MORPHOLOGY (BEAKER) (test gcql=284) Normal POLYCHROMATOPHILLIC RBCS(BEAKER) (test eiqn=159) 1+ few SICKLE CELLS (BEAKER) (test ygki=097) 1+ few TARGET CELLS (BEAKER) (test ffoz=207) 2+ moderate CALCIUM, [id number] 07:28:00 Test Item Value Reference Range Comments CALCIUM IONIZED (BEAKER) (test hlmm=840) 0.97 mmol/L 1.12-1.27 PH, BLOOD (BEAKER) (test nzyl=0625) 7.45 [id number] 05:48:00 Test Item Value Reference Range Comments PHOSPHORUS (BEAKER) (test glau=254) 4.8 mg/dL 2.3-4.7 [id number] 05:48:00 Test Item Value Reference Range Comments MAGNESIUM (BEAKER) (test vahk=753) 1.6 mg/dL 1.6-2.6 BASIC METABOLIC [id number] 05:48:00 Test Item Value Reference Range Comments SODIUM (BEAKER) (test 139 meq/L 136-145 abja=936) POTASSIUM (BEAKER) (test 3.9 meq/L 3.5-5.1 viix=183) CHLORIDE (BEAKER) (test 98 meq/L 98-107 qksp=025) CO2 (BEAKER) (test 32 meq/L 22-29 gxuh=765) BLOOD UREA NITROGEN 23 mg/dL 7-21 (BEAKER) (test ykzi=327) CREATININE (BEAKER) (test 1.10 mg/dL 0.57-1.25 leje=089) GLUCOSE RANDOM (BEAKER) 115 mg/dL 70-105 (test fniw=232) CALCIUM (BEAKER) (test 9.0 mg/dL 8.4-10.2 xzmv=500) EGFR (BEAKER) (test 67 mL/min/1.73 sq m ESTIMATED GFR IS NOT zoxz=0789) ACCURATE CREATININE CLEARANCE IN PREDICTING GLOMERULAR FILTRATION RATE. ESTIMATED GFR IS NOT APPLICABLE FOR DIALYSIS PATIENTS. URINALYSIS W/ [id number] 19:14:00 Test Item Value Reference Range Comments COLOR (BEAKER) (test wtxc=503) Yellow CLARITY (BEAKER) (test qynf=393) Clear SPECIFIC GRAVITY UA (BEAKER) (test kuyw=888) 1.006 1.001-1.035 PH UA (BEAKER) (test qkpg=254) 7.5 5.0-8.0 PROTEIN UA (BEAKER) (test aklh=823) Negative Negative GLUCOSE UA (BEAKER) (test ojmz=627) Negative Negative KETONES UA (BEAKER) (test wuwn=343) Negative Negative BILIRUBIN UA (BEAKER) (test mqaz=939) Negative Negative BLOOD UA (BEAKER) (test wqwt=774) Trace Negative NITRITE UA (BEAKER) (test btjc=583) Negative Negative LEUKOCYTE ESTERASE UA (BEAKER) (test rdak=313) Small Negative UROBILINOGEN UA (BEAKER) (test tkcv=859) 0.2 mg/dL 0.2-1.0 RBC UA (BEAKER) (test rfjb=524) < /HPF WBC UA (BEAKER) (test xenu=837) 7 /HPF BACTERIA (BEAKER) (test vaac=890) Rare SQUAMOUS EPITHELIAL (BEAKER) (test hsfl=986) 1 /HPF SOURCE(BEAKER) (test bcgf=9697) Urine, Voided [id number] 13:26:00 Test Item Value Reference Range Comments LIPASE (BEAKER) (test ouep=823) 95 U/L 8-78 RAD, ABDOMEN/KUB, 1 VIEW [id number] 12:43:00Reason for exam:->abdominal painFINAL REPORT Abdomen one [...] Reading Room CBC W/PLT COUNT & AUTO [id number] 10:00:00 Test Item Value Reference Range Comments WHITE BLOOD CELL COUNT (BEAKER) (test qxlv=228) 18.8 K/ L 3.5-10.5 RED BLOOD CELL COUNT (BEAKER) (test auij=932) 1.83 M/ L 3.93-5.22 HEMOGLOBIN (BEAKER) (test tklg=536) 5.4 GM/DL 11.2-15.7 HEMATOCRIT (BEAKER) (test wxye=956) 16.7 % 34.1-44.9 MEAN CORPUSCULAR VOLUME (BEAKER) (test ghrf=590) 91.3 fL 79.4-94.8 MEAN CORPUSCULAR HEMOGLOBIN (BEAKER) (test 29.5 pg 25.6-32.2 jtku=888) MEAN CORPUSCULAR HEMOGLOBIN CONC (BEAKER) (test 32.3 GM/DL 32.2-35.5 wqyf=551) RED CELL DISTRIBUTION WIDTH (BEAKER) (test 21.7 % 11.7-14.4 wyhs=341) PLATELET COUNT (BEAKER) (test teyz=714) 340 K/CU MM 150-450 MEAN PLATELET VOLUME (BEAKER) (test kvjy=879) 11.3 fL 9.4-12.3 NUCLEATED RED BLOOD CELLS (BEAKER) (test 2 /100 WBC 0-0 dmfn=132) NEUTROPHILS RELATIVE PERCENT (BEAKER) (test 65 % fxfa=404) LYMPHOCYTES RELATIVE PERCENT (BEAKER) (test 23 % tqee=184) MONOCYTES RELATIVE PERCENT (BEAKER) (test 10 % empk=259) EOSINOPHILS RELATIVE PERCENT (BEAKER) (test 1 % mqmh=795) BASOPHILS RELATIVE PERCENT (BEAKER) (test 0 % yypv=291) NEUTROPHILS ABSOLUTE COUNT (BEAKER) (test 12.25 K/ L 1.56-6.13 jeen=085) LYMPHOCYTES ABSOLUTE COUNT (BEAKER) (test 4.31 K/ L 1.18-3.74 zyzs=649) MONOCYTES ABSOLUTE COUNT (BEAKER) (test 1.88 K/ L 0.24-0.36 yvfh=100) EOSINOPHILS ABSOLUTE COUNT (BEAKER) (test 0.26 K/ L 0.04-0.36 ffbz=663) BASOPHILS ABSOLUTE COUNT (BEAKER) (test 0.02 K/ L 0.01-0.08 qzxk=134) IMMATURE GRANULOCYTES-RELATIVE PERCENT (BEAKER) 1 % 0-1 (test jgui=8465) (MANUAL DIFFERENTIAL)2017-11-15 10:00:00 Test Item Value Reference Range Comments TOTAL COUNTED (BEAKER) (test aqrp=5023) ATYPICAL LYMPHS(BEAKER) (test cbqu=4107) Present LARGE PLT(BEAKER) (test nctt=8173) Present HYPOCHROMIA (BEAKER) (test qsas=875) 1+ few POLYCHROMATOPHILLIC RBCS(BEAKER) (test msab=047) 1+ few SICKLE CELLS (BEAKER) (test qhhp=420) 1+ few TARGET CELLS (BEAKER) (test hqth=158) 1+ few U/S, ENDOVAGINAL (EV)2017-11-15 09:03:00Reason for [...] MDReport Verified Date/Time: 2017 09:03:15 Reading Location: [facility] [id number] Ultrasound Reading Room CBC W/ PLT COUNT & AUTO [id number] 08:32:00 Test Item Value Reference Range Comments WHITE BLOOD CELL COUNT (BEAKER) (test yemp=842) 19.8 K/ L 3.5-10.5 RED BLOOD CELL COUNT (BEAKER) (test vpyd=658) 1.89 M/ L 3.93-5.22 HEMOGLOBIN (BEAKER) (test lcra=432) 5.6 GM/DL 11.2-15.7 HEMATOCRIT (BEAKER) (test kwwg=875) 17.2 % 34.1-44.9 MEAN CORPUSCULAR VOLUME (BEAKER) (test lztp=588) 91.0 fL 79.4-94.8 MEAN CORPUSCULAR HEMOGLOBIN (BEAKER) (test 29.6 pg 25.6-32.2 dlqj=016) MEAN CORPUSCULAR HEMOGLOBIN CONC (BEAKER) (test 32.6 GM/DL 32.2-35.5 mssk=700) RED CELL DISTRIBUTION WIDTH (BEAKER) (test 21.4 % 11.7-14.4 xxib=801) PLATELET COUNT (BEAKER) (test nzvq=273) 366 K/CU MM 150-450 MEAN PLATELET VOLUME (BEAKER) (test rbqs=683) 11.6 fL 9.4-12.3 NUCLEATED RED BLOOD CELLS (BEAKER) (test 2 /100 WBC 0-0 eebc=486) NEUTROPHILS RELATIVE PERCENT (BEAKER) (test 70 % dect=317) LYMPHOCYTES RELATIVE PERCENT (BEAKER) (test 18 % ofic=285) MONOCYTES RELATIVE PERCENT (BEAKER) (test 10 % mtxu=365) EOSINOPHILS RELATIVE PERCENT (BEAKER) (test 1 % nlun=995) BASOPHILS RELATIVE PERCENT (BEAKER) (test 0 % qsmz=218) NEUTROPHILS ABSOLUTE COUNT (BEAKER) (test 13.93 K/ L 1.56-6.13 cpqs=311) LYMPHOCYTES ABSOLUTE COUNT (BEAKER) (test 3.51 K/ L 1.18-3.74 oejy=461) MONOCYTES ABSOLUTE COUNT (BEAKER) (test 2.03 K/ L 0.24-0.36 dbul=067) EOSINOPHILS ABSOLUTE COUNT (BEAKER) (test 0.23 K/ L 0.04-0.36 xtyk=016) BASOPHILS ABSOLUTE COUNT (BEAKER) (test 0.02 K/ L 0.01-0.08 kgyd=139) IMMATURE GRANULOCYTES-RELATIVE PERCENT (BEAKER) 0 % 0-1 (test adfh=3483) [id number] 06:16:00 Test Item Value Reference Range Comments PHOSPHORUS (BEAKER) (test spgx=296) 4.6 mg/dL 2.3-4.7 [id number] 06:16:00 Test Item Value Reference Range Comments MAGNESIUM (BEAKER) (test ocxc=380) 1.6 mg/dL 1.6-2.6 BASIC METABOLIC [id number] 06:16:00 Test Item Value Reference Range Comments SODIUM (BEAKER) (test 139 meq/L 136-145 vemz=313) POTASSIUM (BEAKER) (test 3.9 meq/L 3.5-5.1 pozf=918) CHLORIDE (BEAKER) (test 97 meq/L 98-107 rcap=018) CO2 (BEAKER) (test 33 meq/L 22-29 qzfl=963) BLOOD UREA NITROGEN 24 mg/dL 7-21 (BEAKER) (test vcya=151) CREATININE (BEAKER) (test 1.15 mg/dL 0.57-1.25 jnaf=511) GLUCOSE RANDOM (BEAKER) 104 mg/dL 70-105 (test ofal=188) CALCIUM (BEAKER) (test 9.1 mg/dL 8.4-10.2 zwfq=410) EGFR (BEAKER) (test 64 mL/min/1.73 sq m ESTIMATED GFR IS NOT ilfj=4227) ACCURATE CREATININE CLEARANCE IN PREDICTING GLOMERULAR FILTRATION RATE. ESTIMATED GFR IS NOT APPLICABLE FOR DIALYSIS PATIENTS. HEPATIC FUNCTION [id number] 06:16:00 Test Item Value Reference Range Comments TOTAL PROTEIN (BEAKER) (test mhim=344) 8.2 gm/dL 6.0-8.3 ALBUMIN (BEAKER) (test rhlr=3309) 2.9 g/dL 3.5-5.0 BILIRUBIN TOTAL (BEAKER) (test vdvq=617) 1.1 mg/dL 0.2-1.2 BILIRUBIN DIRECT (BEAKER) (test domn=463) 0.5 mg/dL 0.1-0.5 ALKALINE PHOSPHATASE (BEAKER) (test ozhw=257) 164 U/L 40-150 AST (SGOT) (BEAKER) (test worj=918) 76 U/L 5-34 ALT (SGPT) (BEAKER) (test oqyj=948) 34 U/L 6-55 CALCIUM, [id number] 06:00:00 Test Item Value Reference Range Comments CALCIUM IONIZED (BEAKER) (test bxwh=775) 0.93 mmol/L 1.12-1.27 PH, BLOOD (BEAKER) (test nzqe=3911) 7.52 URINALYSIS W/ [id number] 18:32:00 Test Item Value Reference Range Comments COLOR (BEAKER) (test abgy=562) Light Yellow CLARITY (BEAKER) (test jfgq=929) Clear SPECIFIC GRAVITY UA (BEAKER) (test cxqk=085) 1.006 1.001-1.035 PH UA (BEAKER) (test zvey=836) 7.0 5.0-8.0 PROTEIN UA (BEAKER) (test kiht=204) Negative Negative GLUCOSE UA (BEAKER) (test nkeg=874) Negative Negative KETONES UA (BEAKER) (test hxvn=141) Negative Negative BILIRUBIN UA (BEAKER) (test fnoz=691) Negative Negative BLOOD UA (BEAKER) (test bisw=889) Trace Negative NITRITE UA (BEAKER) (test aero=925) Negative Negative LEUKOCYTE ESTERASE UA (BEAKER) (test vdws=982) Small Negative UROBILINOGEN UA (BEAKER) (test cttk=529) 0.2 mg/dL 0.2-1.0 RBC UA (BEAKER) (test xyzh=467) 1 /HPF WBC UA (BEAKER) (test gcnn=079) 7 /HPF BACTERIA (BEAKER) (test dall=702) Rare MUCUS (BEAKER) (test ddao=1682) Rare SQUAMOUS EPITHELIAL (BEAKER) (test nsoo=838) 4 /HPF SOURCE(BEAKER) (test ihxp=6063) Urine, Voided CALCIUM, [id number] 07:19:00 Test Item Value Reference Range Comments CALCIUM IONIZED (BEAKER) (test tsnl=591) 1.03 mmol/L 1.12-1.27 PH, BLOOD (BEAKER) (test thkl=9596) 7.40 CBC W/PLT COUNT & AUTO [id number] 06:26:00 Test Item Value Reference Range Comments WHITE BLOOD CELL COUNT (BEAKER) (test zuml=953) 18.5 K/ L 3.5-10.5 RED BLOOD CELL COUNT (BEAKER) (test jxzc=303) 2.02 M/ L 3.93-5.22 HEMOGLOBIN (BEAKER) (test dndt=396) 6.0 GM/DL 11.2-15.7 HEMATOCRIT (BEAKER) (test iqru=689) 18.5 % 34.1-44.9 MEAN CORPUSCULAR VOLUME (BEAKER) (test arbu=993) 91.6 fL 79.4-94.8 MEAN CORPUSCULAR HEMOGLOBIN (BEAKER) (test 29.7 pg 25.6-32.2 vuie=161) MEAN CORPUSCULAR HEMOGLOBIN CONC (BEAKER) (test 32.4 GM/DL 32.2-35.5 eytf=316) RED CELL DISTRIBUTION WIDTH (BEAKER) (test 21.9 % 11.7-14.4 gxas=611) PLATELET COUNT (BEAKER) (test ghec=396) 337 K/CU MM 150-450 MEAN PLATELET VOLUME (BEAKER) (test uhtb=707) 11.7 fL 9.4-12.3 NUCLEATED RED BLOOD CELLS (BEAKER) (test 4 /100 WBC 0-0 lkqb=281) NEUTROPHILS RELATIVE PERCENT (BEAKER) (test 76 % rdpy=921) LYMPHOCYTES RELATIVE PERCENT (BEAKER) (test 16 % xugh=381) MONOCYTES RELATIVE PERCENT (BEAKER) (test 6 % weqb=657) EOSINOPHILS RELATIVE PERCENT (BEAKER) (test 1 % efsp=056) BASOPHILS RELATIVE PERCENT (BEAKER) (test 0 % wdbs=550) NEUTROPHILS ABSOLUTE COUNT (BEAKER) (test 13.98 K/ L 1.56-6.13 vdpt=852) LYMPHOCYTES ABSOLUTE COUNT (BEAKER) (test 3.02 K/ L 1.18-3.74 ougs=478) MONOCYTES ABSOLUTE COUNT (BEAKER) (test 1.13 K/ L 0.24-0.36 hwcp=579) EOSINOPHILS ABSOLUTE COUNT (BEAKER) (test 0.09 K/ L 0.04-0.36 shss=148) BASOPHILS ABSOLUTE COUNT (BEAKER) (test 0.05 K/ L 0.01-0.08 lnhn=290) IMMATURE GRANULOCYTES-RELATIVE PERCENT (BEAKER) 1 % 0-1 (test wyka=1976) [id number] 06:21:00 Test Item Value Reference Range Comments PHOSPHORUS (BEAKER) (test plus=470) 4.3 mg/dL 2.3-4.7 [id number] 06:21:00 Test Item Value Reference Range Comments MAGNESIUM (BEAKER) (test silq=268) 2.1 mg/dL 1.6-2.6 BASIC METABOLIC [id number] 06:21:00 Test Item Value Reference Range Comments SODIUM (BEAKER) (test 139 meq/L 136-145 krwr=302) POTASSIUM (BEAKER) (test 4.0 meq/L 3.5-5.1 emea=504) CHLORIDE (BEAKER) (test 99 meq/L 98-107 bnxh=453) CO2 (BEAKER) (test 31 meq/L 22-29 tsdd=748) BLOOD UREA NITROGEN 23 mg/dL 7-21 (BEAKER) (test fokm=538) CREATININE (BEAKER) (test 1.29 mg/dL 0.57-1.25 sjiy=597) GLUCOSE RANDOM (BEAKER) 116 mg/dL 70-105 (test dpfa=572) CALCIUM (BEAKER) (test 8.8 mg/dL 8.4-10.2 cgxh=748) EGFR (BEAKER) (test 56 mL/min/1.73 sq m ESTIMATED GFR IS NOT dlcb=3090) ACCURATE CREATININE CLEARANCE IN PREDICTING GLOMERULAR FILTRATION RATE. ESTIMATED GFR IS NOT APPLICABLE FOR DIALYSIS PATIENTS. B-TYPE NATRIURETIC FACTOR (BNP)2017-11-13 07:27:00 Test Item Value Reference Range Comments B-TYPE NATRIURETIC PEPTIDE (BEAKER) (test 166 pg/mL 0-100 mpjm=782) [id number] 07:26:00 Test Item Value Reference Range Comments PHOSPHORUS (BEAKER) (test zafm=322) 4.6 mg/dL 2.3-4.7 [id number] 07:26:00 Test Item Value Reference Range Comments MAGNESIUM (BEAKER) (test ouex=738) 1.6 mg/dL 1.6-2.6 BASIC METABOLIC [id number] 07:26:00 Test Item Value Reference Range Comments SODIUM (BEAKER) (test 139 meq/L 136-145 vfoy=987) POTASSIUM (BEAKER) (test 3.5 meq/L 3.5-5.1 ymcc=275) CHLORIDE (BEAKER) (test 101 meq/L 98-107 iyuw=144) CO2 (BEAKER) (test 32 meq/L 22-29 nchb=874) BLOOD UREA NITROGEN 14 mg/dL 7-21 (BEAKER) (test schu=104) CREATININE (BEAKER) (test 1.09 mg/dL 0.57-1.25 lzau=032) GLUCOSE RANDOM (BEAKER) 92 mg/dL 70-105 (test pbnd=487) CALCIUM (BEAKER) (test 8.5 mg/dL 8.4-10.2 eanr=228) EGFR (BEAKER) (test 68 mL/min/1.73 sq m ESTIMATED GFR IS NOT wqho=7954) ACCURATE CREATININE CLEARANCE IN PREDICTING GLOMERULAR FILTRATION RATE. ESTIMATED GFR IS NOT APPLICABLE FOR DIALYSIS PATIENTS. CBC W/PLT COUNT & AUTO [id number] 07:23:00 Test Item Value Reference Range Comments WHITE BLOOD CELL COUNT (BEAKER) (test hjqe=767) 18.4 K/ L 3.5-10.5 RED BLOOD CELL COUNT (BEAKER) (test vytv=060) 2.03 M/ L 3.93-5.22 HEMOGLOBIN (BEAKER) (test aova=837) 6.0 GM/DL 11.2-15.7 HEMATOCRIT (BEAKER) (test mads=552) 18.8 % 34.1-44.9 MEAN CORPUSCULAR VOLUME (BEAKER) (test trvw=051) 92.6 fL 79.4-94.8 MEAN CORPUSCULAR HEMOGLOBIN (BEAKER) (test 29.6 pg 25.6-32.2 hhhx=107) MEAN CORPUSCULAR HEMOGLOBIN CONC (BEAKER) (test 31.9 GM/DL 32.2-35.5 cljw=421) RED CELL DISTRIBUTION WIDTH (BEAKER) (test 22.9 % 11.7-14.4 qnsm=610) PLATELET COUNT (BEAKER) (test lhyw=395) 302 K/CU MM 150-450 MEAN PLATELET VOLUME (BEAKER) (test dbbb=451) 11.3 fL 9.4-12.3 NUCLEATED RED BLOOD CELLS (BEAKER) (test 7 /100 WBC 0-0 fhme=808) NEUTROPHILS RELATIVE PERCENT (BEAKER) (test 74 % yfnf=882) LYMPHOCYTES RELATIVE PERCENT (BEAKER) (test 18 % ejpv=023) MONOCYTES RELATIVE PERCENT (BEAKER) (test 7 % bvth=921) EOSINOPHILS RELATIVE PERCENT (BEAKER) (test 0 % umek=479) BASOPHILS RELATIVE PERCENT (BEAKER) (test 0 % yctm=862) NEUTROPHILS ABSOLUTE COUNT (BEAKER) (test 13.58 K/ L 1.56-6.13 ykia=076) LYMPHOCYTES ABSOLUTE COUNT (BEAKER) (test 3.24 K/ L 1.18-3.74 natd=619) MONOCYTES ABSOLUTE COUNT (BEAKER) (test 1.23 K/ L 0.24-0.36 kkkn=152) EOSINOPHILS ABSOLUTE COUNT (BEAKER) (test 0.07 K/ L 0.04-0.36 fjag=914) BASOPHILS ABSOLUTE COUNT (BEAKER) (test 0.05 K/ L 0.01-0.08 lxcy=260) IMMATURE GRANULOCYTES-RELATIVE PERCENT (BEAKER) 1 % 0-1 (test ejgv=6392) CALCIUM, [id number] 07:08:00 Test Item Value Reference Range Comments CALCIUM IONIZED (BEAKER) (test kzwv=210) 1.03 mmol/L 1.12-1.27 PH, BLOOD (BEAKER) (test ukzb=4155) 7.38 CBC W/PLT COUNT & AUTO [id number] 08:23:00 Test Item Value Reference Range Comments WHITE BLOOD CELL COUNT (BEAKER) (test qypv=174) 20.4 K/ L 3.5-10.5 RED BLOOD CELL COUNT (BEAKER) (test twwa=985) 2.08 M/ L 3.93-5.22 HEMOGLOBIN (BEAKER) (test npdv=164) 6.4 GM/DL 11.2-15.7 HEMATOCRIT (BEAKER) (test fclk=129) 19.7 % 34.1-44.9 MEAN CORPUSCULAR VOLUME (BEAKER) (test kqun=216) 94.7 fL 79.4-94.8 MEAN CORPUSCULAR HEMOGLOBIN (BEAKER) (test 30.8 pg 25.6-32.2 ztml=619) MEAN CORPUSCULAR HEMOGLOBIN CONC (BEAKER) (test 32.5 GM/DL 32.2-35.5 qmcq=299) RED CELL DISTRIBUTION WIDTH (BEAKER) (test 24.3 % 11.7-14.4 tkcp=667) PLATELET COUNT (BEAKER) (test xsir=443) 290 K/CU MM 150-450 MEAN PLATELET VOLUME (BEAKER) (test ezfo=583) 11.5 fL 9.4-12.3 NUCLEATED RED BLOOD CELLS (BEAKER) (test 19 /100 WBC 0-0 ctqk=167) NEUTROPHILS RELATIVE PERCENT (BEAKER) (test 75 % vatw=129) LYMPHOCYTES RELATIVE PERCENT (BEAKER) (test 16 % uzcb=636) MONOCYTES RELATIVE PERCENT (BEAKER) (test 8 % sqdl=847) EOSINOPHILS RELATIVE PERCENT (BEAKER) (test 0 % zpbg=004) BASOPHILS RELATIVE PERCENT (BEAKER) (test 0 % eudn=830) NEUTROPHILS ABSOLUTE COUNT (BEAKER) (test 15.32 K/ L 1.56-6.13 uptn=073) LYMPHOCYTES ABSOLUTE COUNT (BEAKER) (test 3.24 K/ L 1.18-3.74 tcga=960) MONOCYTES ABSOLUTE COUNT (BEAKER) (test 1.61 K/ L 0.24-0.36 vafp=710) EOSINOPHILS ABSOLUTE COUNT (BEAKER) (test 0.05 K/ L 0.04-0.36 kgws=503) BASOPHILS ABSOLUTE COUNT (BEAKER) (test 0.04 K/ L 0.01-0.08 yrzo=520) IMMATURE GRANULOCYTES-RELATIVE PERCENT (BEAKER) 0 % 0-1 (test fxua=2979) (MANUAL DIFFERENTIAL)2017-11-12 08:23:00 Test Item Value Reference Range Comments TOTAL COUNTED (BEAKER) (test xffi=9081) WBC MORPHOLOGY (BEAKER) (test upls=907) Normal LARGE PLT(BEAKER) (test abpf=6107) Present HYPOCHROMIA (BEAKER) (test buwq=301) 1+ few POLYCHROMATOPHILLIC RBCS(BEAKER) (test xwtq=397) 1+ few SICKLE CELLS (BEAKER) (test sbfp=946) 1+ few TARGET CELLS (BEAKER) (test vkbh=070) 1+ few [id number] 08:11:00 Test Item Value Reference Range Comments PHOSPHORUS (BEAKER) (test fqzy=681) 4.3 mg/dL 2.3-4.7 [id number] 08:11:00 Test Item Value Reference Range Comments MAGNESIUM (BEAKER) (test phpn=204) 1.3 mg/dL 1.6-2.6 BASIC METABOLIC [id number] 08:11:00 Test Item Value Reference Range Comments SODIUM (BEAKER) (test 140 meq/L 136-145 vikd=819) POTASSIUM (BEAKER) (test 3.4 meq/L 3.5-5.1 waza=121) CHLORIDE (BEAKER) (test 103 meq/L 98-107 tzjt=635) CO2 (BEAKER) (test 27 meq/L 22-29 taxp=872) BLOOD UREA NITROGEN 15 mg/dL 7-21 (BEAKER) (test hvll=112) CREATININE (BEAKER) (test 1.10 mg/dL 0.57-1.25 sxtj=725) GLUCOSE RANDOM (BEAKER) 91 mg/dL 70-105 (test xpth=169) CALCIUM (BEAKER) (test 8.5 mg/dL 8.4-10.2 hnqk=592) EGFR (BEAKER) (test 67 mL/min/1.73 sq m ESTIMATED GFR IS NOT devq=9204) ACCURATE CREATININE CLEARANCE IN PREDICTING GLOMERULAR FILTRATION RATE. ESTIMATED GFR IS NOT APPLICABLE FOR DIALYSIS PATIENTS. CALCIUM, [id number] 07:19:00 Test Item Value Reference Range Comments CALCIUM IONIZED (BEAKER) (test oqcc=060) 0.98 mmol/L 1.12-1.27 PH, BLOOD (BEAKER) (test yusj=1968) 7.39 BLOOD [id number] 00:00:00 Test Item Value Reference Range Comments CULTURE (BEAKER) (test aepb=0632) No growth in 5 days CBC W/PLT COUNT & AUTO [id number] 13:18:00 Test Item Value Reference Range Comments WHITE BLOOD CELL COUNT (BEAKER) (test wxrj=654) 20.7 K/ L 3.5-10.5 RED BLOOD CELL COUNT (BEAKER) (test qcym=454) 2.12 M/ L 3.93-5.22 HEMOGLOBIN (BEAKER) (test rooc=425) 6.7 GM/DL 11.2-15.7 HEMATOCRIT (BEAKER) (test cetn=066) 20.4 % 34.1-44.9 MEAN CORPUSCULAR VOLUME (BEAKER) (test gbcd=704) 96.2 fL 79.4-94.8 MEAN CORPUSCULAR HEMOGLOBIN (BEAKER) (test 31.6 pg 25.6-32.2 fvab=107) MEAN CORPUSCULAR HEMOGLOBIN CONC (BEAKER) (test 32.8 GM/DL 32.2-35.5 mghd=452) RED CELL DISTRIBUTION WIDTH (BEAKER) (test 25.9 % 11.7-14.4 fvvi=191) PLATELET COUNT (BEAKER) (test bcrr=689) 262 K/CU MM 150-450 MEAN PLATELET VOLUME (BEAKER) (test khwk=665) 11.2 fL 9.4-12.3 NUCLEATED RED BLOOD CELLS (BEAKER) (test 40 /100 WBC 0-0 ggkm=216) NEUTROPHILS RELATIVE PERCENT (BEAKER) (test 76 % ltgo=883) LYMPHOCYTES RELATIVE PERCENT (BEAKER) (test 16 % rxai=035) MONOCYTES RELATIVE PERCENT (BEAKER) (test 8 % dmge=718) EOSINOPHILS RELATIVE PERCENT (BEAKER) (test 0 % tixd=836) BASOPHILS RELATIVE PERCENT (BEAKER) (test 0 % hqez=421) NEUTROPHILS ABSOLUTE COUNT (BEAKER) (test 15.60 K/ L 1.56-6.13 voqa=305) LYMPHOCYTES ABSOLUTE COUNT (BEAKER) (test 3.23 K/ L 1.18-3.74 ahiy=525) MONOCYTES ABSOLUTE COUNT (BEAKER) (test 1.54 K/ L 0.24-0.36 vhks=654) EOSINOPHILS ABSOLUTE COUNT (BEAKER) (test 0.02 K/ L 0.04-0.36 hgfr=946) BASOPHILS ABSOLUTE COUNT (BEAKER) (test 0.05 K/ L 0.01-0.08 prto=718) IMMATURE GRANULOCYTES-RELATIVE PERCENT (BEAKER) 1 % 0-1 (test fcsh=8353) (MANUAL DIFFERENTIAL)2017-11-11 13:18:00 Test Item Value Reference Range Comments TOTAL COUNTED (BEAKER) (test cinv=7602) WBC MORPHOLOGY (BEAKER) (test fnty=235) Normal LARGE PLT(BEAKER) (test rgxw=5007) Present POLYCHROMATOPHILLIC RBCS(BEAKER) (test xecy=528) 1+ few SICKLE CELLS (BEAKER) (test jqtd=230) 1+ few TARGET CELLS (BEAKER) (test pqwc=480) 1+ few [id number] 08:05:00 Test Item Value Reference Range Comments PHOSPHORUS (BEAKER) (test yfks=341) 5.0 mg/dL 2.3-4.7 [id number] 08:05:00 Test Item Value Reference Range Comments MAGNESIUM (BEAKER) (test djaq=494) 1.6 mg/dL 1.6-2.6 BASIC METABOLIC [id number] 08:05:00 Test Item Value Reference Range Comments SODIUM (BEAKER) (test 140 meq/L 136-145 jrwa=047) POTASSIUM (BEAKER) (test 3.7 meq/L 3.5-5.1 hpwk=895) CHLORIDE (BEAKER) (test 107 meq/L 98-107 yxyh=305) CO2 (BEAKER) (test 24 meq/L 22-29 crzp=138) BLOOD UREA NITROGEN 19 mg/dL 7-21 (BEAKER) (test fmia=444) CREATININE (BEAKER) (test 1.23 mg/dL 0.57-1.25 wnvv=605) GLUCOSE RANDOM (BEAKER) 96 mg/dL 70-105 (test ewti=509) CALCIUM (BEAKER) (test 8.5 mg/dL 8.4-10.2 gmgw=243) EGFR (BEAKER) (test 59 mL/min/1.73 sq m ESTIMATED GFR IS NOT gded=2705) ACCURATE CREATININE CLEARANCE IN PREDICTING GLOMERULAR FILTRATION RATE. ESTIMATED GFR IS NOT APPLICABLE FOR DIALYSIS PATIENTS. CALCIUM, [id number] 06:38:00 Test Item Value Reference Range Comments CALCIUM IONIZED (BEAKER) (test ydff=140) 1.07 mmol/L 1.12-1.27 PH, BLOOD (BEAKER) (test yngg=8307) 7.31 CBC W/PLT COUNT & AUTO [id number] 14:53:00 Test Item Value Reference Range Comments WHITE BLOOD CELL COUNT (BEAKER) (test vumv=223) 21.8 K/ L 3.5-10.5 RED BLOOD CELL COUNT (BEAKER) (test tvlf=100) 2.17 M/ L 3.93-5.22 HEMOGLOBIN (BEAKER) (test enyp=944) 6.8 GM/DL 11.2-15.7 HEMATOCRIT (BEAKER) (test otgi=775) 21.3 % 34.1-44.9 MEAN CORPUSCULAR VOLUME (BEAKER) (test lwvj=532) 98.2 fL 79.4-94.8 MEAN CORPUSCULAR HEMOGLOBIN (BEAKER) (test 31.3 pg 25.6-32.2 djqz=564) MEAN CORPUSCULAR HEMOGLOBIN CONC (BEAKER) (test 31.9 GM/DL 32.2-35.5 rmry=582) RED CELL DISTRIBUTION WIDTH (BEAKER) (test 27.6 % 11.7-14.4 bwiv=711) PLATELET COUNT (BEAKER) (test hxfl=523) 244 K/CU MM 150-450 MEAN PLATELET VOLUME (BEAKER) (test qjbe=757) 11.4 fL 9.4-12.3 NUCLEATED RED BLOOD CELLS (BEAKER) (test 80 /100 WBC 0-0 syjc=154) NEUTROPHILS RELATIVE PERCENT (BEAKER) (test 82 % wzde=716) LYMPHOCYTES RELATIVE PERCENT (BEAKER) (test 7 % egbz=140) MONOCYTES RELATIVE PERCENT (BEAKER) (test 10 % olsy=076) EOSINOPHILS RELATIVE PERCENT (BEAKER) (test 0 % fyyk=715) BASOPHILS RELATIVE PERCENT (BEAKER) (test 0 % aiwt=250) NEUTROPHILS ABSOLUTE COUNT (BEAKER) (test 17.85 K/ L 1.56-6.13 qiou=852) LYMPHOCYTES ABSOLUTE COUNT (BEAKER) (test 1.60 K/ L 1.18-3.74 ehap=469) MONOCYTES ABSOLUTE COUNT (BEAKER) (test 2.14 K/ L 0.24-0.36 iopb=609) EOSINOPHILS ABSOLUTE COUNT (BEAKER) (test 0.03 K/ L 0.04-0.36 alkm=166) BASOPHILS ABSOLUTE COUNT (BEAKER) (test 0.03 K/ L 0.01-0.08 poxf=918) IMMATURE GRANULOCYTES-RELATIVE PERCENT (BEAKER) 1 % 0-1 (test owvp=6848) (MANUAL DIFFERENTIAL)2017-11-10 14:53:00 Test Item Value Reference Range Comments TOTAL COUNTED (BEAKER) (test ptts=0216) WBC MORPHOLOGY (BEAKER) (test lfor=411) Normal LARGE PLT(BEAKER) (test qots=7379) Present SCHISTOCYTES (BEAKER) (test nxrk=167) 1+ few ACANTHOCYTES (BEAKER) (test yssw=055) 1+ few ANISOCYTOSIS (BEAKER) (test mhug=948) 2+ moderate HYPOCHROMIA (BEAKER) (test ramb=932) 2+ moderate MACROCYTES (BEAKER) (test fkqu=695) 3+ many MICROCYTES (BEAKER) (test qoxw=746) 2+ moderate OVALOCYTES (BEAKER) (test sbmr=244) 1+ few POIKILOCYTES (BEAKER) (test wibi=232) 3+ many POLYCHROMATOPHILLIC RBCS(BEAKER) (test bput=628) 2+ moderate SICKLE CELLS (BEAKER) (test yrad=981) 2+ moderate TARGET CELLS (BEAKER) (test nwqe=100) 1+ few BASIC METABOLIC [id number] 08:54:00 Test Item Value Reference Range Comments SODIUM (BEAKER) (test 140 meq/L 136-145 dyqd=751) POTASSIUM (BEAKER) (test 4.0 meq/L 3.5-5.1 byau=590) CHLORIDE (BEAKER) (test 109 meq/L 98-107 mjeg=823) CO2 (BEAKER) (test 19 meq/L 22-29 siuj=619) BLOOD UREA NITROGEN 21 mg/dL 7-21 (BEAKER) (test ucag=988) CREATININE (BEAKER) (test 1.27 mg/dL 0.57-1.25 rqor=926) GLUCOSE RANDOM (BEAKER) 122 mg/dL 70-105 (test tcne=354) CALCIUM (BEAKER) (test 8.6 mg/dL 8.4-10.2 qkyl=899) EGFR (BEAKER) (test 57 mL/min/1.73 sq m ESTIMATED GFR IS NOT qcxw=3031) ACCURATE CREATININE CLEARANCE IN PREDICTING GLOMERULAR FILTRATION RATE. ESTIMATED GFR IS NOT APPLICABLE FOR DIALYSIS PATIENTS. [id number] 08:54:00 Test Item Value Reference Range Comments MAGNESIUM (BEAKER) (test vmca=506) 1.5 mg/dL 1.6-2.6 [id number] 08:54:00 Test Item Value Reference Range Comments PHOSPHORUS (BEAKER) (test xxmy=010) 4.5 mg/dL 2.3-4.7 COMPREHENSIVE METABOLIC [id number] 08:54:00 Test Item Value Reference Range Comments TOTAL PROTEIN (BEAKER) 8.2 gm/dL 6.0-8.3 (test fvhk=466) ALBUMIN (BEAKER) (test 3.1 g/dL 3.5-5.0 jsfb=5221) ALKALINE PHOSPHATASE 154 U/L 40-150 (BEAKER) (test ndni=656) BILIRUBIN TOTAL (BEAKER) 1.4 mg/dL 0.2-1.2 (test vwrk=611) SODIUM (BEAKER) (test 140 meq/L 136-145 zvkd=881) POTASSIUM (BEAKER) (test 4.0 meq/L 3.5-5.1 ntvz=429) CHLORIDE (BEAKER) (test 109 meq/L 98-107 hmjk=030) CO2 (BEAKER) (test 19 meq/L 22-29 qywi=660) BLOOD UREA NITROGEN 21 mg/dL 7-21 (BEAKER) (test yauy=410) CREATININE (BEAKER) (test 1.27 mg/dL 0.57-1.25 ajii=506) GLUCOSE RANDOM (BEAKER) 122 mg/dL 70-105 (test uclx=301) CALCIUM (BEAKER) (test 8.6 mg/dL 8.4-10.2 yngt=780) AST (SGOT) (BEAKER) (test 72 U/L 5-34 fann=199) ALT (SGPT) (BEAKER) (test 50 U/L 6-55 pwcr=559) EGFR (BEAKER) (test 57 mL/min/1.73 sq m ESTIMATED GFR IS NOT kktx=4436) ACCURATE CREATININE CLEARANCE IN PREDICTING GLOMERULAR FILTRATION RATE. ESTIMATED GFR IS NOT APPLICABLE FOR DIALYSIS PATIENTS. CALCIUM, [id number] 07:21:00 Test Item Value Reference Range Comments CALCIUM IONIZED (BEAKER) (test hnhm=662) 1.04 mmol/L 1.12-1.27 PH, BLOOD (BEAKER) (test nybs=5670) 7.39 CBC W/PLT COUNT & AUTO [id number] 12:10:00 Test Item Value Reference Range Comments WHITE BLOOD CELL COUNT (BEAKER) (test xkfo=370) 20.8 K/ L 3.5-10.5 RED BLOOD CELL COUNT (BEAKER) (test ekkp=819) 2.11 M/ L 3.93-5.22 HEMOGLOBIN (BEAKER) (test pkfw=370) 6.6 GM/DL 11.2-15.7 HEMATOCRIT (BEAKER) (test tjzk=041) 20.4 % 34.1-44.9 MEAN CORPUSCULAR VOLUME (BEAKER) (test rmot=106) 96.7 fL 79.4-94.8 MEAN CORPUSCULAR HEMOGLOBIN (BEAKER) (test 31.3 pg 25.6-32.2 stdj=533) MEAN CORPUSCULAR HEMOGLOBIN CONC (BEAKER) (test 32.4 GM/DL 32.2-35.5 dagv=098) RED CELL DISTRIBUTION WIDTH (BEAKER) (test 27.2 % 11.7-14.4 nivb=543) PLATELET COUNT (BEAKER) (test nuhl=517) 237 K/CU MM 150-450 MEAN PLATELET VOLUME (BEAKER) (test vklj=735) 10.7 fL 9.4-12.3 NUCLEATED RED BLOOD CELLS (BEAKER) (test 98 /100 WBC 0-0 nsag=484) NEUTROPHILS RELATIVE PERCENT (BEAKER) (test 82 % szsw=779) LYMPHOCYTES RELATIVE PERCENT (BEAKER) (test 6 % eosc=995) MONOCYTES RELATIVE PERCENT (BEAKER) (test 11 % xbfa=410) EOSINOPHILS RELATIVE PERCENT (BEAKER) (test 0 % yqob=578) BASOPHILS RELATIVE PERCENT (BEAKER) (test 0 % tynk=909) NEUTROPHILS ABSOLUTE COUNT (BEAKER) (test 16.91 K/ L 1.56-6.13 iduh=855) LYMPHOCYTES ABSOLUTE COUNT (BEAKER) (test 1.31 K/ L 1.18-3.74 tkhm=041) MONOCYTES ABSOLUTE COUNT (BEAKER) (test 2.37 K/ L 0.24-0.36 pztb=524) EOSINOPHILS ABSOLUTE COUNT (BEAKER) (test 0.01 K/ L 0.04-0.36 kzbi=000) BASOPHILS ABSOLUTE COUNT (BEAKER) (test 0.05 K/ L 0.01-0.08 ryln=254) IMMATURE GRANULOCYTES-RELATIVE PERCENT (BEAKER) 1 % 0-1 (test pyff=7416) (MANUAL DIFFERENTIAL)2017-11-09 12:10:00 Test Item Value Reference Range Comments TOTAL COUNTED (BEAKER) (test hhgc=6865) WBC MORPHOLOGY (BEAKER) (test vaxd=823) Normal PLT MORPHOLOGY (BEAKER) (test ibft=738) Normal ANISOCYTOSIS (BEAKER) (test gbue=507) 2+ moderate MATTHEWS-JOLLY BODIES (BEAKER) (test ycnl=593) 1+ few POIKILOCYTES (BEAKER) (test wxqd=553) 2+ moderate POLYCHROMATOPHILLIC RBCS(BEAKER) (test mbzv=551) 1+ few SICKLE CELLS (BEAKER) (test hbnb=972) 2+ moderate TARGET CELLS (BEAKER) (test kwfq=993) 1+ few CALCIUM, [id number] 07:44:00 Test Item Value Reference Range Comments CALCIUM IONIZED (BEAKER) (test iqcz=140) 1.16 mmol/L 1.12-1.27 PH, BLOOD (BEAKER) (test mhln=8515) 7.25 B-TYPE NATRIURETIC FACTOR (BNP)2017-11-09 07:43:00 Test Item Value Reference Range Comments B-TYPE NATRIURETIC PEPTIDE (BEAKER) (test 903 pg/mL 0-100 cpha=238) [id number] 07:27:00 Test Item Value Reference Range Comments PHOSPHORUS (BEAKER) (test wqgn=172) 4.4 mg/dL 2.3-4.7 [id number] 07:27:00 Test Item Value Reference Range Comments MAGNESIUM (BEAKER) (test hsiq=470) 1.7 mg/dL 1.6-2.6 COMPREHENSIVE METABOLIC [id number] 07:27:00 Test Item Value Reference Range Comments TOTAL PROTEIN (BEAKER) 7.8 gm/dL 6.0-8.3 (test lbdl=421) ALBUMIN (BEAKER) (test 3.2 g/dL 3.5-5.0 muzm=6298) ALKALINE PHOSPHATASE 165 U/L 40-150 (BEAKER) (test baxb=399) BILIRUBIN TOTAL (BEAKER) 1.3 mg/dL 0.2-1.2 (test quci=981) SODIUM (BEAKER) (test 143 meq/L 136-145 jeab=634) POTASSIUM (BEAKER) (test 4.2 meq/L 3.5-5.1 gwya=938) CHLORIDE (BEAKER) (test 112 meq/L 98-107 qkmr=728) CO2 (BEAKER) (test 23 meq/L 22-29 fegi=703) BLOOD UREA NITROGEN 29 mg/dL 7-21 (BEAKER) (test qnwa=254) CREATININE (BEAKER) (test 1.54 mg/dL 0.57-1.25 zitr=141) GLUCOSE RANDOM (BEAKER) 108 mg/dL 70-105 (test prhl=319) CALCIUM (BEAKER) (test 9.1 mg/dL 8.4-10.2 tvhf=959) AST (SGOT) (BEAKER) (test 110 U/L 5-34 oljg=710) ALT (SGPT) (BEAKER) (test 64 U/L 6-55 iqkq=482) EGFR (BEAKER) (test 46 mL/min/1.73 sq m ESTIMATED GFR IS NOT yxcf=3238) ACCURATE CREATININE CLEARANCE IN PREDICTING GLOMERULAR FILTRATION RATE. ESTIMATED GFR IS NOT APPLICABLE FOR DIALYSIS PATIENTS. BASIC METABOLIC [id number] 07:27:00 Test Item Value Reference Range Comments SODIUM (BEAKER) (test 143 meq/L 136-145 gvlu=276) POTASSIUM (BEAKER) (test 4.2 meq/L 3.5-5.1 uzpq=110) CHLORIDE (BEAKER) (test 112 meq/L 98-107 rghd=533) CO2 (BEAKER) (test 23 meq/L 22-29 gyfs=045) BLOOD UREA NITROGEN 29 mg/dL 7-21 (BEAKER) (test hjuf=232) CREATININE (BEAKER) (test 1.54 mg/dL 0.57-1.25 ihhe=526) GLUCOSE RANDOM (BEAKER) 108 mg/dL 70-105 (test asvg=313) CALCIUM (BEAKER) (test 9.1 mg/dL 8.4-10.2 hyqx=601) EGFR (BEAKER) (test 46 mL/min/1.73 sq m ESTIMATED GFR IS NOT vilr=1473) ACCURATE CREATININE CLEARANCE IN PREDICTING GLOMERULAR FILTRATION RATE. ESTIMATED GFR IS NOT APPLICABLE FOR DIALYSIS PATIENTS. RAD, CHEST, 1 VIEW, NON [id number] 20:41:00Reason for exam:->edemaShould this be performed at [...] concerning for fluid overload/heart failure. Signed:Cliff Salcido [facility] Verified Date/Time: 11/08/2017 20:41:24 Reading Location: [address] Reading Room Electronically signed by: CLIFF SALCIDO M.D. on 08:41 PMEOSINOPHIL SMEAR, [id number] 12:49:00 Test Item Value Reference Range Comments EOSINOPHIL SMEAR, URINE (BEAKER) (test No EOS seen No EOS seen kpjb=9962) CBC W/PLT COUNT & AUTO [id number] 10:40:00 Test Item Value Reference Range Comments WHITE BLOOD CELL COUNT (BEAKER) (test jaxe=668) 18.6 K/ L 3.5-10.5 RED BLOOD CELL COUNT (BEAKER) (test twji=222) 2.21 M/ L 3.93-5.22 HEMOGLOBIN (BEAKER) (test opdm=591) 6.8 GM/DL 11.2-15.7 HEMATOCRIT (BEAKER) (test ifji=160) 20.6 % 34.1-44.9 MEAN CORPUSCULAR VOLUME (BEAKER) (test snqm=471) 93.2 fL 79.4-94.8 MEAN CORPUSCULAR HEMOGLOBIN (BEAKER) (test 30.8 pg 25.6-32.2 nmtp=780) MEAN CORPUSCULAR HEMOGLOBIN CONC (BEAKER) (test 33.0 GM/DL 32.2-35.5 kork=419) RED CELL DISTRIBUTION WIDTH (BEAKER) (test 25.5 % 11.7-14.4 pwcd=607) PLATELET COUNT (BEAKER) (test ubcl=696) 255 K/CU MM 150-450 MEAN PLATELET VOLUME (BEAKER) (test auyo=874) 10.6 fL 9.4-12.3 NUCLEATED RED BLOOD CELLS (BEAKER) (test 87 /100 WBC 0-0 qwwf=966) NEUTROPHILS RELATIVE PERCENT (BEAKER) (test 70 % kbnl=235) LYMPHOCYTES RELATIVE PERCENT (BEAKER) (test 14 % nqvj=590) MONOCYTES RELATIVE PERCENT (BEAKER) (test 14 % eoey=221) EOSINOPHILS RELATIVE PERCENT (BEAKER) (test 0 % hjlb=523) BASOPHILS RELATIVE PERCENT (BEAKER) (test 0 % xwaq=756) NEUTROPHILS ABSOLUTE COUNT (BEAKER) (test 12.98 K/ L 1.56-6.13 nxhv=584) LYMPHOCYTES ABSOLUTE COUNT (BEAKER) (test 2.67 K/ L 1.18-3.74 klyj=082) MONOCYTES ABSOLUTE COUNT (BEAKER) (test 2.65 K/ L 0.24-0.36 aesk=137) EOSINOPHILS ABSOLUTE COUNT (BEAKER) (test 0.07 K/ L 0.04-0.36 pojh=471) BASOPHILS ABSOLUTE COUNT (BEAKER) (test 0.05 K/ L 0.01-0.08 yvki=775) IMMATURE GRANULOCYTES-RELATIVE PERCENT (BEAKER) 1 % 0-1 (test jlzv=2449) (MANUAL DIFFERENTIAL)2017-11-08 10:40:00 Test Item Value Reference Range Comments TOTAL COUNTED (BEAKER) (test jwww=0060) WBC MORPHOLOGY (BEAKER) (test ucqc=648) Normal LARGE PLT(BEAKER) (test cmbd=1352) Present POLYCHROMATOPHILLIC RBCS(BEAKER) (test ohay=284) 2+ moderate SICKLE CELLS (BEAKER) (test nrqb=622) 3+ many TARGET CELLS (BEAKER) (test qdvz=773) 1+ few CT, [id number] 08:29:00FINAL REPORT HISTORY : Abdominal pain, unspecified [...] [place] Verified Date/Time: 11/08/2017 08:29:54 Reading Location: [facility] Reading Room - [place] [address] Electronically signed by: DAMI QUICK M.D. on11/08/2017 08:29 AMBASIC METABOLIC [id number] 08:14:00 Test Item Value Reference Range Comments SODIUM (BEAKER) (test 141 meq/L 136-145 dkyl=630) POTASSIUM (BEAKER) (test 4.4 meq/L 3.5-5.1 kcot=047) CHLORIDE (BEAKER) (test 111 meq/L 98-107 fdeq=005) CO2 (BEAKER) (test 17 meq/L 22-29 ermg=186) BLOOD UREA NITROGEN 37 mg/dL 7-21 (BEAKER) (test dlsh=523) CREATININE (BEAKER) (test 2.07 mg/dL 0.57-1.25 iknj=254) GLUCOSE RANDOM (BEAKER) 101 mg/dL 70-105 (test hqjp=159) CALCIUM (BEAKER) (test 8.9 mg/dL 8.4-10.2 iolq=964) EGFR (BEAKER) (test 32 mL/min/1.73 sq m ESTIMATED GFR IS NOT tsgi=1642) ACCURATE CREATININE CLEARANCE IN PREDICTING GLOMERULAR FILTRATION RATE. ESTIMATED GFR IS NOT APPLICABLE FOR DIALYSIS PATIENTS. COMPREHENSIVE METABOLIC [id number] 08:14:00 Test Item Value Reference Range Comments TOTAL PROTEIN (BEAKER) 8.6 gm/dL 6.0-8.3 (test ztpt=187) ALBUMIN (BEAKER) (test 3.4 g/dL 3.5-5.0 tnpw=1356) ALKALINE PHOSPHATASE 155 U/L 40-150 (BEAKER) (test zhjd=189) BILIRUBIN TOTAL (BEAKER) 1.7 mg/dL 0.2-1.2 (test jmxf=448) SODIUM (BEAKER) (test 141 meq/L 136-145 aliw=904) POTASSIUM (BEAKER) (test 4.4 meq/L 3.5-5.1 fjxk=740) CHLORIDE (BEAKER) (test 111 meq/L 98-107 nuhv=622) CO2 (BEAKER) (test 17 meq/L 22-29 klpb=405) BLOOD UREA NITROGEN 37 mg/dL 7-21 (BEAKER) (test jggr=817) CREATININE (BEAKER) (test 2.07 mg/dL 0.57-1.25 aots=725) GLUCOSE RANDOM (BEAKER) 101 mg/dL 70-105 (test nevo=036) CALCIUM (BEAKER) (test 8.9 mg/dL 8.4-10.2 peab=289) AST (SGOT) (BEAKER) (test 144 U/L 5-34 jbhi=921) ALT (SGPT) (BEAKER) (test 70 U/L 6-55 tcpw=029) EGFR (BEAKER) (test 32 mL/min/1.73 sq m ESTIMATED GFR IS NOT irue=4844) ACCURATE CREATININE CLEARANCE IN PREDICTING GLOMERULAR FILTRATION RATE. ESTIMATED GFR IS NOT APPLICABLE FOR DIALYSIS PATIENTS. PROTEIN, RANDOM [id number] 07:49:00 Test Item Value Reference Range Comments PROTEIN, URINE (BEAKER) (test tqro=3582) 24 mg/dL 0-14 CREATININE, RANDOM [id number] 07:47:00 Test Item Value Reference Range Comments CREATININE URINE (BEAKER) (test chzu=829) 46.0 mg/dL Reference Range: No NormalsSODIUM, RANDOM [id number] 07:47:00 Test Item Value Reference Range Comments SODIUM URINE (BEAKER) (test jupn=974) 65 meq/L Reference Range: No NormalsU/S, ABDOMINAL, [id number] 19:58:00Reason for exam:->GRAYSON, abdominal painShould this be [...] Verified Date/Time: 11/07/2017 19:58:17 Reading Location: [address] Consult Reading Room LACTIC ACID, VENOUS, WHOLE [id number] 16:11:00 Test Item Value Reference Range Comments LACTATE BLOOD VENOUS (2) 0.9 mmol/L 0.5-2.2 Specimen slightly hemolyzed (BEAKER) (test ebeh=9913) Effective 12/22/2015: Units/Reference Range ChangeNew: 0.5-2.2 mmol/L Previous: 5 -20 mg/dLCBC W/PLT COUNT & AUTO [id number] 10:20:00 Test Item Value Reference Range Comments WHITE BLOOD CELL COUNT (BEAKER) (test rutp=241) 23.2 K/ L 3.5-10.5 RED BLOOD CELL COUNT (BEAKER) (test vhmc=610) 1.84 M/ L 3.93-5.22 HEMOGLOBIN (BEAKER) (test font=787) 5.8 GM/DL 11.2-15.7 HEMATOCRIT (BEAKER) (test ietw=499) 17.3 % 34.1-44.9 MEAN CORPUSCULAR VOLUME (BEAKER) (test mrch=452) 94.0 fL 79.4-94.8 MEAN CORPUSCULAR HEMOGLOBIN (BEAKER) (test 31.5 pg 25.6-32.2 zbag=338) MEAN CORPUSCULAR HEMOGLOBIN CONC (BEAKER) (test 33.5 GM/DL 32.2-35.5 edzs=038) RED CELL DISTRIBUTION WIDTH (BEAKER) (test 24.1 % 11.7-14.4 amsl=080) PLATELET COUNT (BEAKER) (test oioh=638) 249 K/CU MM 150-450 MEAN PLATELET VOLUME (BEAKER) (test auwl=027) 10.8 fL 9.4-12.3 NUCLEATED RED BLOOD CELLS (BEAKER) (test 48 /100 WBC 0-0 aefj=181) IMMATURE GRANULOCYTES-RELATIVE PERCENT (BEAKER) 2 % 0-1 (test bdht=8762) (MANUAL DIFFERENTIAL)2017-11-07 10:20:00 Test Item Value Reference Range Comments NEUTROPHILS - REL (DIFF) (BEAKER) (test 68 % mfxo=3309) LYMPHOCYTES - REL (DIFF) (BEAKER) (test 27 % cmwx=9948) MONOCYTES - REL (DIFF) (BEAKER) (test hilk=7980) 5 % EOSINOPHILS - REL (DIFF) (BEAKER) (test 0 % ttcp=5443) BASOPHILS - REL (DIFF) (BEAKER) (test cwpd=4977) 0 % NEUTROPHILS - ABS (DIFF) (BEAKER) (test 15.78 K/ L 1.80-8.00 jfty=2585) LYMPHOCYTES - ABS (DIFF) (BEAKER) (test 6.26 K/ L 1.48-4.50 ylsm=3182) MONOCYTES - ABS (DIFF) (BEAKER) (test cxmt=6595) 1.16 K/ L 0.00-1.30 EOSINOPHILS - ABS (DIFF) (BEAKER) (test 0.00 K/ L 0.00-0.50 fgln=3302) BASOPHILS - ABS (DIFF) (BEAKER) (test iaai=9252) 0.00 K/ L 0.00-0.20 TOTAL COUNTED (BEAKER) (test zdos=3050) 100 MANUAL NRBC PER 100 CELLS (BEAKER) (test 51 /100 WBC 0-0 doeq=3377) WBC MORPHOLOGY (BEAKER) (test mfdv=705) Normal PLT MORPHOLOGY (BEAKER) (test kfty=459) Normal ANISOCYTOSIS (BEAKER) (test gzak=787) 3+ many POLYCHROMATOPHILLIC RBCS(BEAKER) (test bwrv=492) 2+ moderate SICKLE CELLS (BEAKER) (test kiww=143) 3+ many TARGET CELLS (BEAKER) (test tmiv=900) 1+ few BASIC METABOLIC [id number] 06:28:00 Test Item Value Reference Range Comments SODIUM (BEAKER) (test 132 meq/L 136-145 djwz=980) POTASSIUM (BEAKER) (test 4.4 meq/L 3.5-5.1 rlvw=590) CHLORIDE (BEAKER) (test 109 meq/L 98-107 zewz=394) CO2 (BEAKER) (test 20 meq/L 22-29 gejx=585) BLOOD UREA NITROGEN 39 mg/dL 7-21 (BEAKER) (test bxut=541) CREATININE (BEAKER) (test 2.20 mg/dL 0.57-1.25 iqms=021) GLUCOSE RANDOM (BEAKER) 123 mg/dL 70-105 (test oiwr=522) CALCIUM (BEAKER) (test 8.7 mg/dL 8.4-10.2 mxwl=753) EGFR (BEAKER) (test 30 mL/min/1.73 sq m ESTIMATED GFR IS NOT eexa=6724) ACCURATE CREATININE CLEARANCE IN PREDICTING GLOMERULAR FILTRATION RATE. ESTIMATED GFR IS NOT APPLICABLE FOR DIALYSIS PATIENTS. COMPREHENSIVE METABOLIC [id number] 18:37:00 Test Item Value Reference Range Comments TOTAL PROTEIN (BEAKER) 8.5 gm/dL 6.0-8.3 (test xxvg=340) ALBUMIN (BEAKER) (test 3.4 g/dL 3.5-5.0 zier=7876) ALKALINE PHOSPHATASE 166 U/L 40-150 (BEAKER) (test yhxg=614) BILIRUBIN TOTAL (BEAKER) 4.0 mg/dL 0.2-1.2 (test lcla=916) SODIUM (BEAKER) (test 142 meq/L 136-145 ctzx=510) POTASSIUM (BEAKER) (test 4.7 meq/L 3.5-5.1 wtmy=316) CHLORIDE (BEAKER) (test 110 meq/L 98-107 ekpu=327) CO2 (BEAKER) (test 22 meq/L 22-29 uwtw=946) BLOOD UREA NITROGEN 35 mg/dL 7-21 (BEAKER) (test amvp=730) CREATININE (BEAKER) (test 1.97 mg/dL 0.57-1.25 volz=814) GLUCOSE RANDOM (BEAKER) 119 mg/dL 70-105 (test abiu=872) CALCIUM (BEAKER) (test 8.5 mg/dL 8.4-10.2 irrn=975) AST (SGOT) (BEAKER) (test 278 U/L 5-34 ojbo=184) ALT (SGPT) (BEAKER) (test 92 U/L 6-55 falg=306) EGFR (BEAKER) (test 34 mL/min/1.73 sq m ESTIMATED GFR IS NOT zxla=7936) ACCURATE CREATININE CLEARANCE IN PREDICTING GLOMERULAR FILTRATION RATE. ESTIMATED GFR IS NOT APPLICABLE FOR DIALYSIS PATIENTS. Specimen slightly ictericCBC W/PLT COUNT & AUTO [id number] 14:59 :00 Test Item Value Reference Range Comments WHITE BLOOD CELL COUNT (BEAKER) (test kskc=997) 24.3 K/ L 3.5-10.5 RED BLOOD CELL COUNT (BEAKER) (test qjrs=809) 1.73 M/ L 3.93-5.22 HEMOGLOBIN (BEAKER) (test dgrl=382) 5.5 GM/DL 11.2-15.7 HEMATOCRIT (BEAKER) (test garl=048) 16.7 % 34.1-44.9 MEAN CORPUSCULAR VOLUME (BEAKER) (test sdxp=683) 96.5 fL 79.4-94.8 MEAN CORPUSCULAR HEMOGLOBIN (BEAKER) (test 31.8 pg 25.6-32.2 zbtq=806) MEAN CORPUSCULAR HEMOGLOBIN CONC (BEAKER) (test 32.9 GM/DL 32.2-35.5 qdza=139) RED CELL DISTRIBUTION WIDTH (BEAKER) (test 25.8 % 11.7-14.4 pahy=943) PLATELET COUNT (BEAKER) (test sucd=720) 259 K/CU MM 150-450 MEAN PLATELET VOLUME (BEAKER) (test sxta=019) 11.1 fL 9.4-12.3 NUCLEATED RED BLOOD CELLS (BEAKER) (test 29 /100 WBC 0-0 epex=616) IMMATURE GRANULOCYTES-RELATIVE PERCENT (BEAKER) 2 % 0-1 (test cmvi=6878) (MANUAL DIFFERENTIAL)[id number] 14:59:00 Test Item Value Reference Range Comments NEUTROPHILS - REL (DIFF) (BEAKER) (test 65 % fhyq=7072) LYMPHOCYTES - REL (DIFF) (BEAKER) (test 26 % apey=1260) MONOCYTES - REL (DIFF) (BEAKER) (test xqag=2133) 8 % MYELOCYTES-REL (DIFF) (BEAKER) (test vadr=4181) 1 % 0-0 NEUTROPHILS - ABS (DIFF) (BEAKER) (test 15.80 K/ L 1.80-8.00 whos=4262) LYMPHOCYTES - ABS (DIFF) (BEAKER) (test 6.32 K/ L 1.48-4.50 bcsd=1211) MONOCYTES - ABS (DIFF) (BEAKER) (test ivro=9207) 1.94 K/ L 0.00-1.30 MYELOCYTES-ABS (DIFF) (BEAKER) (test lcvo=7325) 0.24 K/ L 0.00-0.00 TOTAL COUNTED (BEAKER) (test jtka=7081) 100 MANUAL NRBC PER 100 CELLS (BEAKER) (test 34 /100 WBC 0-0 afwu=7673) WBC MORPHOLOGY (BEAKER) (test acwl=080) Normal PLT MORPHOLOGY (BEAKER) (test equy=893) Normal ANISOCYTOSIS (BEAKER) (test msrx=008) 3+ many MATTHEWS-JOLLY BODIES (BEAKER) (test mdtd=600) Present POIKILOCYTES (BEAKER) (test niux=780) 1+ few POLYCHROMATOPHILLIC RBCS(BEAKER) (test umaw=696) 2+ moderate SICKLE CELLS (BEAKER) (test tilk=313) 3+ many BASIC METABOLIC [id number] 09:37:00 Test Item Value Reference Range Comments SODIUM (BEAKER) (test 139 meq/L 136-145 ovuh=642) POTASSIUM (BEAKER) (test 4.5 meq/L 3.5-5.1 sltx=756) CHLORIDE (BEAKER) (test 107 meq/L 98-107 dfib=915) CO2 (BEAKER) (test 19 meq/L 22-29 flfj=290) BLOOD UREA NITROGEN 27 mg/dL 7-21 (BEAKER) (test uwkv=059) CREATININE (BEAKER) (test 1.37 mg/dL 0.57-1.25 vicf=099) GLUCOSE RANDOM (BEAKER) 124 mg/dL 70-105 (test xwgj=069) CALCIUM (BEAKER) (test 8.2 mg/dL 8.4-10.2 gosy=244) EGFR (BEAKER) (test 52 mL/min/1.73 sq m ESTIMATED GFR IS NOT wiuz=5530) ACCURATE CREATININE CLEARANCE IN PREDICTING GLOMERULAR FILTRATION RATE. ESTIMATED GFR IS NOT APPLICABLE FOR DIALYSIS PATIENTS. Specimen slightly ictericURINALYSIS W/ [id number] 06:22:00 Test Item Value Reference Range Comments COLOR (BEAKER) (test oowb=264) Brown CLARITY (BEAKER) (test kntr=112) Cloudy SPECIFIC GRAVITY UA (BEAKER) (test 1.015 1.001-1.035 qfzb=876) PH UA (BEAKER) (test fjvr=359) 5.5 5.0-8.0 PROTEIN UA (BEAKER) (test jega=144) 100 mg/dL Negative GLUCOSE UA (BEAKER) (test foqz=263) Negative Negative KETONES UA (BEAKER) (test awru=075) Negative Negative BILIRUBIN UA (BEAKER) (test cxkz=398) Positive Negative BLOOD UA (BEAKER) (test lqdj=572) Large Negative NITRITE UA (BEAKER) (test vlfr=734) Negative Negative LEUKOCYTE ESTERASE UA (BEAKER) (test Trace Negative gale=264) UROBILINOGEN UA (BEAKER) (test hjxs=492) 4.0 mg/dL 0.2-1.0 RBC UA (BEAKER) (test hitt=709) 0 /HPF WBC UA (BEAKER) (test vahu=912) 27 /HPF MUCUS (BEAKER) (test ghkm=6008) Few SQUAMOUS EPITHELIAL (BEAKER) (test 11 /HPF sbil=493) SOURCE(BEAKER) (test kifs=0337) Urine, Clean Catch BASIC METABOLIC [id number] 10:56:00 Test Item Value Reference Range Comments SODIUM (BEAKER) (test 139 meq/L 136-145 owmq=463) POTASSIUM (BEAKER) (test 4.2 meq/L 3.5-5.1 bnou=202) CHLORIDE (BEAKER) (test 104 meq/L 98-107 nhyh=176) CO2 (BEAKER) (test 23 meq/L 22-29 eolb=961) BLOOD UREA NITROGEN 9 mg/dL 7-21 (BEAKER) (test pqvn=219) CREATININE (BEAKER) (test 0.66 mg/dL 0.57-1.25 vijr=447) GLUCOSE RANDOM (BEAKER) 109 mg/dL 70-105 (test epcn=082) CALCIUM (BEAKER) (test 8.6 mg/dL 8.4-10.2 ubmu=263) EGFR (BEAKER) (test 121 mL/min/1.73 sq m ESTIMATED GFR IS NOT pnss=3589) ACCURATE CREATININE CLEARANCE IN PREDICTING GLOMERULAR FILTRATION RATE. ESTIMATED GFR IS NOT APPLICABLE FOR DIALYSIS PATIENTS. Specimen slightly ictericCBC W/PLT COUNT & AUTO [id number] 09:17 :00 Test Item Value Reference Range Comments WHITE BLOOD CELL COUNT (BEAKER) (test oyyu=288) 18.2 K/ L 3.5-10.5 RED BLOOD CELL COUNT (BEAKER) (test uinw=883) 2.05 M/ L 3.93-5.22 HEMOGLOBIN (BEAKER) (test npsm=235) 6.4 GM/DL 11.2-15.7 HEMATOCRIT (BEAKER) (test bmaf=415) 19.9 % 34.1-44.9 MEAN CORPUSCULAR VOLUME (BEAKER) (test kigi=464) 97.1 fL 79.4-94.8 MEAN CORPUSCULAR HEMOGLOBIN (BEAKER) (test 31.2 pg 25.6-32.2 wwas=287) MEAN CORPUSCULAR HEMOGLOBIN CONC (BEAKER) (test 32.2 GM/DL 32.2-35.5 tcge=499) RED CELL DISTRIBUTION WIDTH (BEAKER) (test 25.4 % 11.7-14.4 gmda=007) PLATELET COUNT (BEAKER) (test eqwf=037) 227 K/CU MM 150-450 MEAN PLATELET VOLUME (BEAKER) (test bdkz=881) 10.4 fL 9.4-12.3 NUCLEATED RED BLOOD CELLS (BEAKER) (test 18 /100 WBC 0-0 msvg=771) NEUTROPHILS RELATIVE PERCENT (BEAKER) (test 57 % coou=552) LYMPHOCYTES RELATIVE PERCENT (BEAKER) (test 24 % qdkl=788) MONOCYTES RELATIVE PERCENT (BEAKER) (test 15 % qnoq=530) EOSINOPHILS RELATIVE PERCENT (BEAKER) (test 3 % ejyx=589) BASOPHILS RELATIVE PERCENT (BEAKER) (test 0 % zenu=250) NEUTROPHILS ABSOLUTE COUNT (BEAKER) (test 10.46 K/ L 1.56-6.13 sswu=826) LYMPHOCYTES ABSOLUTE COUNT (BEAKER) (test 4.31 K/ L 1.18-3.74 uxfi=217) MONOCYTES ABSOLUTE COUNT (BEAKER) (test 2.72 K/ L 0.24-0.36 eeud=390) EOSINOPHILS ABSOLUTE COUNT (BEAKER) (test 0.45 K/ L 0.04-0.36 zlpl=852) BASOPHILS ABSOLUTE COUNT (BEAKER) (test 0.07 K/ L 0.01-0.08 qkrb=508) IMMATURE GRANULOCYTES-RELATIVE PERCENT (BEAKER) 1 % 0-1 (test szpg=8643) (MANUAL DIFFERENTIAL)2017-11-05 09:17:00 Test Item Value Reference Range Comments TOTAL COUNTED (BEAKER) (test qpnr=2441) WBC MORPHOLOGY (BEAKER) (test jsas=448) Normal PLT MORPHOLOGY (BEAKER) (test pchl=926) Normal ANISOCYTOSIS (BEAKER) (test fagq=631) 2+ moderate POLYCHROMATOPHILLIC RBCS(BEAKER) (test udxr=947) 2+ moderate SICKLE CELLS (BEAKER) (test seci=104) 2+ moderate TARGET CELLS (BEAKER) (test nemo=350) 2+ moderate CREATINE KINASE (CK), TOTAL AND [id number] 22:01:00 Test Item Value Reference Range Comments CREATINE KINASE TOTAL (BEAKER) (test 10 U/L 29-200 kvmz=059) CREATINE KINASE-MB (BEAKER) (test 0.1 ng/mL 0.0-6.6 zpyh=004) CREATINE KINASE-MB INDEX (BEAKER) (test 1.0 % Unable to Calculate lfxo=542) CK-MB Reference Range:<6.7 Normal6.7-10.0 Borderline>10.0 AbnormalTROPONIN [id number] 21:16:00 Test Item Value Reference Range Comments TROPONIN I (BEAKER) (test oolb=178) < ng/mL 0.00-0.03 Troponin I (TnI) levels [...] and persistent tachyarrhythmia.CBC W/PLT COUNT & AUTO [id number] 06:49:00 Test Item Value Reference Range Comments WHITE BLOOD CELL COUNT (BEAKER) (test zxch=320) 13.3 K/ L 3.5-10.5 RED BLOOD CELL COUNT (BEAKER) (test msue=145) 2.18 M/ L 3.93-5.22 HEMOGLOBIN (BEAKER) (test njzx=817) 6.8 GM/DL 11.2-15.7 HEMATOCRIT (BEAKER) (test fnls=588) 21.5 % 34.1-44.9 MEAN CORPUSCULAR VOLUME (BEAKER) (test mpcx=272) 98.6 fL 79.4-94.8 MEAN CORPUSCULAR HEMOGLOBIN (BEAKER) (test 31.2 pg 25.6-32.2 niot=559) MEAN CORPUSCULAR HEMOGLOBIN CONC (BEAKER) (test 31.6 GM/DL 32.2-35.5 ehva=146) RED CELL DISTRIBUTION WIDTH (BEAKER) (test 21.1 % 11.7-14.4 npua=926) PLATELET COUNT (BEAKER) (test dtsu=200) 192 K/CU MM 150-450 MEAN PLATELET VOLUME (BEAKER) (test biqm=724) 11.4 fL 9.4-12.3 NUCLEATED RED BLOOD CELLS (BEAKER) (test 1 /100 WBC 0-0 gtjb=926) NEUTROPHILS RELATIVE PERCENT (BEAKER) (test 51 % yewy=652) LYMPHOCYTES RELATIVE PERCENT (BEAKER) (test 30 % evfg=106) MONOCYTES RELATIVE PERCENT (BEAKER) (test 16 % dkxa=291) EOSINOPHILS RELATIVE PERCENT (BEAKER) (test 2 % cilf=681) BASOPHILS RELATIVE PERCENT (BEAKER) (test 0 % guzi=674) NEUTROPHILS ABSOLUTE COUNT (BEAKER) (test 6.84 K/ L 1.56-6.13 mjvp=200) LYMPHOCYTES ABSOLUTE COUNT (BEAKER) (test 4.06 K/ L 1.18-3.74 tkxk=027) MONOCYTES ABSOLUTE COUNT (BEAKER) (test 2.12 K/ L 0.24-0.36 ctki=444) EOSINOPHILS ABSOLUTE COUNT (BEAKER) (test 0.26 K/ L 0.04-0.36 ihcx=863) BASOPHILS ABSOLUTE COUNT (BEAKER) (test 0.02 K/ L 0.01-0.08 dxwu=373) IMMATURE GRANULOCYTES-RELATIVE PERCENT (BEAKER) 0 % 0-1 (test clro=2859) BASIC METABOLIC [id number] 07:06:00 Test Item Value Reference Range Comments SODIUM (BEAKER) (test 138 meq/L 136-145 egij=724) POTASSIUM (BEAKER) (test 4.2 meq/L 3.5-5.1 bdyq=939) CHLORIDE (BEAKER) (test 103 meq/L 98-107 jajs=036) CO2 (BEAKER) (test 28 meq/L 22-29 sroh=386) BLOOD UREA NITROGEN 11 mg/dL 7-21 (BEAKER) (test uzsz=517) CREATININE (BEAKER) (test 0.55 mg/dL 0.57-1.25 xgqx=239) GLUCOSE RANDOM (BEAKER) 95 mg/dL 70-105 (test udie=594) CALCIUM (BEAKER) (test 9.5 mg/dL 8.4-10.2 lghp=425) EGFR (BEAKER) (test 150 mL/min/1.73 sq m ESTIMATED GFR IS NOT ulls=7537) ACCURATE CREATININE CLEARANCE IN PREDICTING GLOMERULAR FILTRATION RATE. ESTIMATED GFR IS NOT APPLICABLE FOR DIALYSIS PATIENTS. CBC W/PLT COUNT & AUTO [id number] 06:48:00 Test Item Value Reference Range Comments WHITE BLOOD CELL COUNT (BEAKER) (test spco=899) 12.8 K/ L 3.5-10.5 RED BLOOD CELL COUNT (BEAKER) (test afwm=824) 2.22 M/ L 3.93-5.22 HEMOGLOBIN (BEAKER) (test nxin=554) 7.2 GM/DL 11.2-15.7 HEMATOCRIT (BEAKER) (test uicl=082) 21.9 % 34.1-44.9 MEAN CORPUSCULAR VOLUME (BEAKER) (test puri=351) 98.6 fL 79.4-94.8 MEAN CORPUSCULAR HEMOGLOBIN (BEAKER) (test 32.4 pg 25.6-32.2 pbwr=251) MEAN CORPUSCULAR HEMOGLOBIN CONC (BEAKER) (test 32.9 GM/DL 32.2-35.5 iqtd=867) RED CELL DISTRIBUTION WIDTH (BEAKER) (test 21.2 % 11.7-14.4 agcu=076) PLATELET COUNT (BEAKER) (test geal=641) 176 K/CU MM 150-450 MEAN PLATELET VOLUME (BEAKER) (test nbae=802) 11.2 fL 9.4-12.3 NUCLEATED RED BLOOD CELLS (BEAKER) (test 5 /100 WBC 0-0 xekh=819) NEUTROPHILS RELATIVE PERCENT (BEAKER) (test 49 % riwd=345) LYMPHOCYTES RELATIVE PERCENT (BEAKER) (test 31 % kmbq=838) MONOCYTES RELATIVE PERCENT (BEAKER) (test 19 % pczj=558) EOSINOPHILS RELATIVE PERCENT (BEAKER) (test 2 % gjjc=372) BASOPHILS RELATIVE PERCENT (BEAKER) (test 0 % xkrx=393) NEUTROPHILS ABSOLUTE COUNT (BEAKER) (test 6.23 K/ L 1.56-6.13 xnqz=545) LYMPHOCYTES ABSOLUTE COUNT (BEAKER) (test 3.90 K/ L 1.18-3.74 coov=664) MONOCYTES ABSOLUTE COUNT (BEAKER) (test 2.37 K/ L 0.24-0.36 twap=708) EOSINOPHILS ABSOLUTE COUNT (BEAKER) (test 0.24 K/ L 0.04-0.36 adst=789) BASOPHILS ABSOLUTE COUNT (BEAKER) (test 0.01 K/ L 0.01-0.08 gfjv=170) IMMATURE GRANULOCYTES-RELATIVE PERCENT (BEAKER) 0 % 0-1 (test iunp=4221) (MANUAL DIFFERENTIAL)2017-06-03 06:48:00 Test Item Value Reference Range Comments TOTAL COUNTED (BEAKER) (test wqoi=7928) WBC MORPHOLOGY (BEAKER) (test eawu=454) Normal PLT MORPHOLOGY (BEAKER) (test wzxb=710) Normal ANISOCYTOSIS (BEAKER) (test ints=984) 3+ many MATTHEWS-JOLLY BODIES (BEAKER) (test daha=368) Present MACROCYTES (BEAKER) (test ynsq=535) 3+ many SICKLE CELLS (BEAKER) (test lyiz=169) 1+ few TARGET CELLS (BEAKER) (test gzhs=078) 1+ few BASIC METABOLIC [id number] 07:33:00 Test Item Value Reference Range Comments SODIUM (BEAKER) (test 138 meq/L 136-145 hres=052) POTASSIUM (BEAKER) (test 4.5 meq/L 3.5-5.1 unqb=963) CHLORIDE (BEAKER) (test 102 meq/L 98-107 bjvn=063) CO2 (BEAKER) (test 27 meq/L 22-29 gbdj=312) BLOOD UREA NITROGEN 11 mg/dL 7-21 (BEAKER) (test tezg=974) CREATININE (BEAKER) (test 0.55 mg/dL 0.57-1.25 xxav=075) GLUCOSE RANDOM (BEAKER) 85 mg/dL 70-105 (test aclj=103) CALCIUM (BEAKER) (test 9.5 mg/dL 8.4-10.2 oinf=049) EGFR (BEAKER) (test 150 mL/min/1.73 sq m ESTIMATED GFR IS NOT iyae=7715) ACCURATE CREATININE CLEARANCE IN PREDICTING GLOMERULAR FILTRATION RATE. ESTIMATED GFR IS NOT APPLICABLE FOR DIALYSIS PATIENTS. CBC W/PLT COUNT & AUTO [id number] 07:13:00 Test Item Value Reference Range Comments WHITE BLOOD CELL COUNT (BEAKER) (test nqzx=400) 14.2 K/ L 3.5-10.5 RED BLOOD CELL COUNT (BEAKER) (test mppf=626) 2.39 M/ L 3.93-5.22 HEMOGLOBIN (BEAKER) (test cwsq=764) 7.6 GM/DL 11.2-15.7 HEMATOCRIT (BEAKER) (test bxze=285) 23.5 % 34.1-44.9 MEAN CORPUSCULAR VOLUME (BEAKER) (test shvy=031) 98.3 fL 79.4-94.8 MEAN CORPUSCULAR HEMOGLOBIN (BEAKER) (test 31.8 pg 25.6-32.2 cieg=006) MEAN CORPUSCULAR HEMOGLOBIN CONC (BEAKER) (test 32.3 GM/DL 32.2-35.5 xaip=643) RED CELL DISTRIBUTION WIDTH (BEAKER) (test 21.1 % 11.7-14.4 iqnp=128) PLATELET COUNT (BEAKER) (test eatk=033) 173 K/CU MM 150-450 MEAN PLATELET VOLUME (BEAKER) (test poaa=868) 11.7 fL 9.4-12.3 NUCLEATED RED BLOOD CELLS (BEAKER) (test 11 /100 WBC 0-0 gjqa=011) NEUTROPHILS RELATIVE PERCENT (BEAKER) (test 53 % dajx=267) LYMPHOCYTES RELATIVE PERCENT (BEAKER) (test 27 % ysht=594) MONOCYTES RELATIVE PERCENT (BEAKER) (test 18 % jmpc=383) EOSINOPHILS RELATIVE PERCENT (BEAKER) (test 1 % adjh=804) BASOPHILS RELATIVE PERCENT (BEAKER) (test 0 % phwv=704) NEUTROPHILS ABSOLUTE COUNT (BEAKER) (test 7.56 K/ L 1.56-6.13 naaw=724) LYMPHOCYTES ABSOLUTE COUNT (BEAKER) (test 3.89 K/ L 1.18-3.74 wqmw=268) MONOCYTES ABSOLUTE COUNT (BEAKER) (test 2.52 K/ L 0.24-0.36 niks=714) EOSINOPHILS ABSOLUTE COUNT (BEAKER) (test 0.20 K/ L 0.04-0.36 wyns=769) BASOPHILS ABSOLUTE COUNT (BEAKER) (test 0.02 K/ L 0.01-0.08 ogke=888) IMMATURE GRANULOCYTES-RELATIVE PERCENT (BEAKER) 0 % 0-1 (test kmya=3135) CBC W/PLT COUNT & AUTO [id number] 16:45:00 Test Item Value Reference Range Comments WHITE BLOOD CELL COUNT (BEAKER) (test dglc=877) 15.1 K/ L 3.5-10.5 RED BLOOD CELL COUNT (BEAKER) (test gtlu=267) 2.36 M/ L 3.93-5.22 HEMOGLOBIN (BEAKER) (test ztkk=806) 7.5 GM/DL 11.2-15.7 HEMATOCRIT (BEAKER) (test cnlm=693) 23.0 % 34.1-44.9 MEAN CORPUSCULAR VOLUME (BEAKER) (test pbvn=786) 97.5 fL 79.4-94.8 MEAN CORPUSCULAR HEMOGLOBIN (BEAKER) (test 31.8 pg 25.6-32.2 jwgx=400) MEAN CORPUSCULAR HEMOGLOBIN CONC (BEAKER) (test 32.6 GM/DL 32.2-35.5 zujo=597) RED CELL DISTRIBUTION WIDTH (BEAKER) (test 20.7 % 11.7-14.4 utwr=473) PLATELET COUNT (BEAKER) (test bike=010) 179 K/CU MM 150-450 MEAN PLATELET VOLUME (BEAKER) (test tlmu=906) 11.9 fL 9.4-12.3 NUCLEATED RED BLOOD CELLS (BEAKER) (test 12 /100 WBC 0-0 eyde=775) NEUTROPHILS RELATIVE PERCENT (BEAKER) (test 53 % wvgt=680) LYMPHOCYTES RELATIVE PERCENT (BEAKER) (test 27 % tviq=347) MONOCYTES RELATIVE PERCENT (BEAKER) (test 18 % qoys=024) EOSINOPHILS RELATIVE PERCENT (BEAKER) (test 2 % zzis=222) BASOPHILS RELATIVE PERCENT (BEAKER) (test 0 % mxrj=978) NEUTROPHILS ABSOLUTE COUNT (BEAKER) (test 8.03 K/ L 1.56-6.13 apoz=129) LYMPHOCYTES ABSOLUTE COUNT (BEAKER) (test 3.99 K/ L 1.18-3.74 zeeg=852) MONOCYTES ABSOLUTE COUNT (BEAKER) (test 2.65 K/ L 0.24-0.36 dbql=437) EOSINOPHILS ABSOLUTE COUNT (BEAKER) (test 0.31 K/ L 0.04-0.36 gsum=370) BASOPHILS ABSOLUTE COUNT (BEAKER) (test 0.02 K/ L 0.01-0.08 qtws=918) IMMATURE GRANULOCYTES-RELATIVE PERCENT (BEAKER) 0 % 0-1 (test qjgx=8052) BASIC METABOLIC [id number] 06:17:00 Test Item Value Reference Range Comments SODIUM (BEAKER) (test 138 meq/L 136-145 pbaw=704) POTASSIUM (BEAKER) (test 4.1 meq/L 3.5-5.1 nasy=864) CHLORIDE (BEAKER) (test 100 meq/L 98-107 rbfp=476) CO2 (BEAKER) (test 30 meq/L 22-29 vxku=630) BLOOD UREA NITROGEN 11 mg/dL 7-21 (BEAKER) (test gpkj=754) CREATININE (BEAKER) (test 0.58 mg/dL 0.57-1.25 jugg=207) GLUCOSE RANDOM (BEAKER) 90 mg/dL 70-105 (test hmka=373) CALCIUM (BEAKER) (test 9.4 mg/dL 8.4-10.2 tlij=771) EGFR (BEAKER) (test 141 mL/min/1.73 sq m ESTIMATED GFR IS NOT kdwm=5538) ACCURATE CREATININE CLEARANCE IN PREDICTING GLOMERULAR FILTRATION RATE. ESTIMATED GFR IS NOT APPLICABLE FOR DIALYSIS PATIENTS. CBC W/PLT COUNT & AUTO [id number] 13:41:00 Test Item Value Reference Range Comments WHITE BLOOD CELL COUNT (BEAKER) (test rkra=836) 13.9 K/ L 3.5-10.5 RED BLOOD CELL COUNT (BEAKER) (test iwxe=008) 2.38 M/ L 3.93-5.22 HEMOGLOBIN (BEAKER) (test lpmg=406) 7.5 GM/DL 11.2-15.7 HEMATOCRIT (BEAKER) (test qjcv=770) 23.2 % 34.1-44.9 MEAN CORPUSCULAR VOLUME (BEAKER) (test olja=880) 97.5 fL 79.4-94.8 MEAN CORPUSCULAR HEMOGLOBIN (BEAKER) (test 31.5 pg 25.6-32.2 zaos=726) MEAN CORPUSCULAR HEMOGLOBIN CONC (BEAKER) (test 32.3 GM/DL 32.2-35.5 vrih=551) RED CELL DISTRIBUTION WIDTH (BEAKER) (test 20.2 % 11.7-14.4 ovui=002) PLATELET COUNT (BEAKER) (test ozoo=205) 171 K/CU MM 150-450 MEAN PLATELET VOLUME (BEAKER) (test txli=352) 12.0 fL 9.4-12.3 NUCLEATED RED BLOOD CELLS (BEAKER) (test 8 /100 WBC 0-0 wlgw=697) NEUTROPHILS RELATIVE PERCENT (BEAKER) (test 57 % bdgr=870) LYMPHOCYTES RELATIVE PERCENT (BEAKER) (test 23 % wxms=201) MONOCYTES RELATIVE PERCENT (BEAKER) (test 18 % rgsb=861) EOSINOPHILS RELATIVE PERCENT (BEAKER) (test 2 % sqwg=098) BASOPHILS RELATIVE PERCENT (BEAKER) (test 0 % tgkz=650) NEUTROPHILS ABSOLUTE COUNT (BEAKER) (test 7.89 K/ L 1.56-6.13 fhrn=551) LYMPHOCYTES ABSOLUTE COUNT (BEAKER) (test 3.13 K/ L 1.18-3.74 rzzu=485) MONOCYTES ABSOLUTE COUNT (BEAKER) (test 2.52 K/ L 0.24-0.36 xusd=053) EOSINOPHILS ABSOLUTE COUNT (BEAKER) (test 0.25 K/ L 0.04-0.36 kpjl=902) BASOPHILS ABSOLUTE COUNT (BEAKER) (test 0.02 K/ L 0.01-0.08 wlwl=666) IMMATURE GRANULOCYTES-RELATIVE PERCENT (BEAKER) 1 % 0-1 (test kuck=3414) (MANUAL DIFFERENTIAL)2017-05-31 13:41:00 Test Item Value Reference Range Comments TOTAL COUNTED (BEAKER) (test vtpv=1251) WBC MORPHOLOGY (BEAKER) (test meyy=870) Normal PLT MORPHOLOGY (BEAKER) (test lgnt=794) Normal POLYCHROMATOPHILLIC RBCS(BEAKER) (test qfwk=401) 2+ moderate SICKLE CELLS (BEAKER) (test ocmf=191) 1+ few TARGET CELLS (BEAKER) (test kcaz=758) 2+ moderate URINE [id number] 12:19:00 Test Item Value Reference Range Comments CULTURE (BEAKER) (test 20-29,000 col/mL skin valentino udpq=7077) BASIC METABOLIC [id number] 07:23:00 Test Item Value Reference Range Comments SODIUM (BEAKER) (test 136 meq/L 136-145 yahc=601) POTASSIUM (BEAKER) (test 3.9 meq/L 3.5-5.1 ftvr=800) CHLORIDE (BEAKER) (test 97 meq/L 98-107 dtyt=294) CO2 (BEAKER) (test 30 meq/L 22-29 yjey=663) BLOOD UREA NITROGEN 9 mg/dL 7-21 (BEAKER) (test zllt=646) CREATININE (BEAKER) (test 0.56 mg/dL 0.57-1.25 fbug=889) GLUCOSE RANDOM (BEAKER) 100 mg/dL 70-105 (test lbot=897) CALCIUM (BEAKER) (test 9.5 mg/dL 8.4-10.2 wbvc=941) EGFR (BEAKER) (test 147 mL/min/1.73 sq m ESTIMATED GFR IS NOT hryn=2386) ACCURATE CREATININE CLEARANCE IN PREDICTING GLOMERULAR FILTRATION RATE. ESTIMATED GFR IS NOT APPLICABLE FOR DIALYSIS PATIENTS. U/S, ABDOMINAL, [id number] 23:52:00Reason for exam:->painShould this be performed at [...] MDReport Verified Date/Time: 05/30/2017 23:52:25 Reading Location: [address] Consult Reading Room 11:52 PMCBC W/PLT COUNT & AUTO [id number] 17:30:00 Test Item Value Reference Range Comments WHITE BLOOD CELL COUNT (BEAKER) (test ozjm=566) 14.0 K/ L 3.5-10.5 RED BLOOD CELL COUNT (BEAKER) (test hzmh=521) 2.41 M/ L 3.93-5.22 HEMOGLOBIN (BEAKER) (test envw=078) 7.7 GM/DL 11.2-15.7 HEMATOCRIT (BEAKER) (test zrxt=515) 23.3 % 34.1-44.9 MEAN CORPUSCULAR VOLUME (BEAKER) (test pstj=479) 96.7 fL 79.4-94.8 MEAN CORPUSCULAR HEMOGLOBIN (BEAKER) (test 32.0 pg 25.6-32.2 xhst=604) MEAN CORPUSCULAR HEMOGLOBIN CONC (BEAKER) (test 33.0 GM/DL 32.2-35.5 sepi=134) RED CELL DISTRIBUTION WIDTH (BEAKER) (test 20.0 % 11.7-14.4 uxyd=906) PLATELET COUNT (BEAKER) (test arjh=644) 163 K/CU MM 150-450 MEAN PLATELET VOLUME (BEAKER) (test flve=128) 11.7 fL 9.4-12.3 NUCLEATED RED BLOOD CELLS (BEAKER) (test 4 /100 WBC 0-0 vjji=635) NEUTROPHILS RELATIVE PERCENT (BEAKER) (test 47 % eedp=861) LYMPHOCYTES RELATIVE PERCENT (BEAKER) (test 32 % lsgw=555) MONOCYTES RELATIVE PERCENT (BEAKER) (test 18 % dwwb=446) EOSINOPHILS RELATIVE PERCENT (BEAKER) (test 3 % rxcn=029) BASOPHILS RELATIVE PERCENT (BEAKER) (test 0 % lhpd=369) NEUTROPHILS ABSOLUTE COUNT (BEAKER) (test 6.58 K/ L 1.56-6.13 maxj=041) LYMPHOCYTES ABSOLUTE COUNT (BEAKER) (test 4.40 K/ L 1.18-3.74 fwgo=850) MONOCYTES ABSOLUTE COUNT (BEAKER) (test 2.49 K/ L 0.24-0.36 qarh=605) EOSINOPHILS ABSOLUTE COUNT (BEAKER) (test 0.44 K/ L 0.04-0.36 avzz=398) BASOPHILS ABSOLUTE COUNT (BEAKER) (test 0.02 K/ L 0.01-0.08 ggdb=831) IMMATURE GRANULOCYTES-RELATIVE PERCENT (BEAKER) 0 % 0-1 (test miiu=9880) BASIC METABOLIC [id number] 06:33:00 Test Item Value Reference Range Comments SODIUM (BEAKER) (test 139 meq/L 136-145 xnfp=074) POTASSIUM (BEAKER) (test 4.0 meq/L 3.5-5.1 zrjz=013) CHLORIDE (BEAKER) (test 102 meq/L 98-107 svca=109) CO2 (BEAKER) (test 28 meq/L 22-29 ztyp=473) BLOOD UREA NITROGEN 7 mg/dL 7-21 (BEAKER) (test naow=193) CREATININE (BEAKER) (test 0.54 mg/dL 0.57-1.25 ngim=283) GLUCOSE RANDOM (BEAKER) 95 mg/dL 70-105 (test aciw=899) CALCIUM (BEAKER) (test 9.6 mg/dL 8.4-10.2 qjff=461) EGFR (BEAKER) (test 153 mL/min/1.73 sq m ESTIMATED GFR IS NOT aztb=7711) ACCURATE CREATININE CLEARANCE IN PREDICTING GLOMERULAR FILTRATION RATE. ESTIMATED GFR IS NOT APPLICABLE FOR DIALYSIS PATIENTS. CBC W/PLT COUNT & AUTO [id number] 13:41:00 Test Item Value Reference Range Comments WHITE BLOOD CELL COUNT (BEAKER) (test ngdw=382) 14.6 K/ L 3.5-10.5 RED BLOOD CELL COUNT (BEAKER) (test xbjl=148) 1.85 M/ L 3.93-5.22 HEMOGLOBIN (BEAKER) (test atxm=515) 5.9 GM/DL 11.2-15.7 HEMATOCRIT (BEAKER) (test bhpo=638) 18.5 % 34.1-44.9 MEAN CORPUSCULAR VOLUME (BEAKER) (test bcbf=357) 100.0 fL 79.4-94.8 MEAN CORPUSCULAR HEMOGLOBIN (BEAKER) (test 31.9 pg 25.6-32.2 cfcj=113) MEAN CORPUSCULAR HEMOGLOBIN CONC (BEAKER) (test 31.9 GM/DL 32.2-35.5 hdhg=731) RED CELL DISTRIBUTION WIDTH (BEAKER) (test 21.0 % 11.7-14.4 mlpm=845) PLATELET COUNT (BEAKER) (test fhio=042) 169 K/CU MM 150-450 MEAN PLATELET VOLUME (BEAKER) (test bisv=155) 12.1 fL 9.4-12.3 NUCLEATED RED BLOOD CELLS (BEAKER) (test 3 /100 WBC 0-0 gvos=281) NEUTROPHILS RELATIVE PERCENT (BEAKER) (test 52 % clkh=799) LYMPHOCYTES RELATIVE PERCENT (BEAKER) (test 28 % megd=507) MONOCYTES RELATIVE PERCENT (BEAKER) (test 16 % ylnx=370) EOSINOPHILS RELATIVE PERCENT (BEAKER) (test 4 % dhxh=830) BASOPHILS RELATIVE PERCENT (BEAKER) (test 0 % oymj=497) NEUTROPHILS ABSOLUTE COUNT (BEAKER) (test 7.50 K/ L 1.56-6.13 nozg=509) LYMPHOCYTES ABSOLUTE COUNT (BEAKER) (test 4.08 K/ L 1.18-3.74 yyne=217) MONOCYTES ABSOLUTE COUNT (BEAKER) (test 2.34 K/ L 0.24-0.36 tjxr=393) EOSINOPHILS ABSOLUTE COUNT (BEAKER) (test 0.56 K/ L 0.04-0.36 ijxw=309) BASOPHILS ABSOLUTE COUNT (BEAKER) (test 0.02 K/ L 0.01-0.08 nokk=314) IMMATURE GRANULOCYTES-RELATIVE PERCENT (BEAKER) 0 % 0-1 (test sfnv=5730) (MANUAL DIFFERENTIAL)2017-05-29 13:41:00 Test Item Value Reference Range Comments TOTAL COUNTED (BEAKER) (test egwx=5321) WBC MORPHOLOGY (BEAKER) (test zghx=279) Normal PLT MORPHOLOGY (BEAKER) (test ckhu=339) Normal POLYCHROMATOPHILLIC RBCS(BEAKER) (test uywn=412) 2+ moderate SICKLE CELLS (BEAKER) (test ddjw=730) 1+ few TARGET CELLS (BEAKER) (test xopg=969) 2+ moderate BASIC METABOLIC [id number] 07:38:00 Test Item Value Reference Range Comments SODIUM (BEAKER) (test 140 meq/L 136-145 epro=499) POTASSIUM (BEAKER) (test 3.9 meq/L 3.5-5.1 vwei=124) CHLORIDE (BEAKER) (test 104 meq/L 98-107 elor=476) CO2 (BEAKER) (test 28 meq/L 22-29 juit=805) BLOOD UREA NITROGEN 8 mg/dL 7-21 (BEAKER) (test awvf=845) CREATININE (BEAKER) (test 0.56 mg/dL 0.57-1.25 aiju=847) GLUCOSE RANDOM (BEAKER) 129 mg/dL 70-105 (test zbdr=780) CALCIUM (BEAKER) (test 9.2 mg/dL 8.4-10.2 vert=583) EGFR (BEAKER) (test 147 mL/min/1.73 sq m ESTIMATED GFR IS NOT dgke=0576) ACCURATE CREATININE CLEARANCE IN PREDICTING GLOMERULAR FILTRATION RATE. ESTIMATED GFR IS NOT APPLICABLE FOR DIALYSIS PATIENTS. CBC W/PLT COUNT & AUTO [id number] 15:40:00 Test Item Value Reference Range Comments WHITE BLOOD CELL COUNT (BEAKER) (test pdtd=467) 15.5 K/ L 3.5-10.5 RED BLOOD CELL COUNT (BEAKER) (test xmvq=748) 2.13 M/ L 3.93-5.22 HEMOGLOBIN (BEAKER) (test kbcj=356) 6.8 GM/DL 11.2-15.7 HEMATOCRIT (BEAKER) (test yvud=074) 21.1 % 34.1-44.9 MEAN CORPUSCULAR VOLUME (BEAKER) (test coem=702) 99.1 fL 79.4-94.8 MEAN CORPUSCULAR HEMOGLOBIN (BEAKER) (test 31.9 pg 25.6-32.2 sxou=305) MEAN CORPUSCULAR HEMOGLOBIN CONC (BEAKER) (test 32.2 GM/DL 32.2-35.5 tdtt=584) RED CELL DISTRIBUTION WIDTH (BEAKER) (test 20.8 % 11.7-14.4 pijz=125) PLATELET COUNT (BEAKER) (test ljlz=531) 178 K/CU MM 150-450 MEAN PLATELET VOLUME (BEAKER) (test bpky=020) 11.9 fL 9.4-12.3 NUCLEATED RED BLOOD CELLS (BEAKER) (test 2 /100 WBC 0-0 juzr=081) NEUTROPHILS RELATIVE PERCENT (BEAKER) (test 47 % tmvy=586) LYMPHOCYTES RELATIVE PERCENT (BEAKER) (test 34 % ajgm=820) MONOCYTES RELATIVE PERCENT (BEAKER) (test 16 % abjk=617) EOSINOPHILS RELATIVE PERCENT (BEAKER) (test 3 % zhsy=976) BASOPHILS RELATIVE PERCENT (BEAKER) (test 0 % psqj=310) NEUTROPHILS ABSOLUTE COUNT (BEAKER) (test 7.20 K/ L 1.56-6.13 phjo=544) LYMPHOCYTES ABSOLUTE COUNT (BEAKER) (test 5.22 K/ L 1.18-3.74 yxhn=042) MONOCYTES ABSOLUTE COUNT (BEAKER) (test 2.50 K/ L 0.24-0.36 njty=147) EOSINOPHILS ABSOLUTE COUNT (BEAKER) (test 0.48 K/ L 0.04-0.36 kiqj=590) BASOPHILS ABSOLUTE COUNT (BEAKER) (test 0.02 K/ L 0.01-0.08 mgut=225) IMMATURE GRANULOCYTES-RELATIVE PERCENT (BEAKER) 1 % 0-1 (test oxbk=7544) (MANUAL DIFFERENTIAL)2017-05-28 15:40:00 Test Item Value Reference Range Comments TOTAL COUNTED (BEAKER) (test avpd=9628) WBC MORPHOLOGY (BEAKER) (test hqnw=860) Normal PLT MORPHOLOGY (BEAKER) (test ehid=149) Normal ANISOCYTOSIS (BEAKER) (test bhee=895) 2+ moderate POLYCHROMATOPHILLIC RBCS(BEAKER) (test zbvc=631) 2+ moderate SICKLE CELLS (BEAKER) (test ewab=061) 1+ few TARGET CELLS (BEAKER) (test vlmc=066) 2+ moderate URINALYSIS W/ [id number] 15:13:00 Test Item Value Reference Range Comments COLOR (BEAKER) (test lxkk=445) Yellow CLARITY (BEAKER) (test acyp=501) Clear SPECIFIC GRAVITY UA (BEAKER) (test jjjq=241) 1.008 1.001-1.035 PH UA (BEAKER) (test tqba=963) 6.0 5.0-8.0 PROTEIN UA (BEAKER) (test mzcu=950) Negative Negative GLUCOSE UA (BEAKER) (test aoti=115) Negative Negative KETONES UA (BEAKER) (test gxwc=658) Negative Negative BILIRUBIN UA (BEAKER) (test ttwe=304) Negative Negative BLOOD UA (BEAKER) (test xkje=842) Negative Negative NITRITE UA (BEAKER) (test xmlf=197) Negative Negative LEUKOCYTE ESTERASE UA (BEAKER) (test vhjc=536) Negative Negative UROBILINOGEN UA (BEAKER) (test fnvf=650) 0.2 mg/dL 0.2-1.0 RBC UA (BEAKER) (test caai=646) < /HPF WBC UA (BEAKER) (test wixy=015) 2 /HPF MUCUS (BEAKER) (test puuy=9675) Rare SQUAMOUS EPITHELIAL (BEAKER) (test uxjy=105) 5 /HPF SOURCE(BEAKER) (test lrnc=3758) Urine, Voided BASIC METABOLIC [id number] 06:26:00 Test Item Value Reference Range Comments SODIUM (BEAKER) (test 139 meq/L 136-145 vlew=421) POTASSIUM (BEAKER) (test 3.8 meq/L 3.5-5.1 cckx=904) CHLORIDE (BEAKER) (test 104 meq/L 98-107 umii=377) CO2 (BEAKER) (test 30 meq/L 22-29 zyur=649) BLOOD UREA NITROGEN 6 mg/dL 7-21 (BEAKER) (test qoog=549) CREATININE (BEAKER) (test 0.56 mg/dL 0.57-1.25 iwaa=366) GLUCOSE RANDOM (BEAKER) 102 mg/dL 70-105 (test kfxt=604) CALCIUM (BEAKER) (test 9.0 mg/dL 8.4-10.2 idfi=747) EGFR (BEAKER) (test 147 mL/min/1.73 sq m ESTIMATED GFR IS NOT evpd=4699) ACCURATE CREATININE CLEARANCE IN PREDICTING GLOMERULAR FILTRATION RATE. ESTIMATED GFR IS NOT APPLICABLE FOR DIALYSIS PATIENTS.
[2019-03-16] MEDS ORDERED: PROMETHAZINE 25 MG/ML VIAL ONE
[2019-03-16] MEDS ORDERED: DIPHENHYDRAMINE 50 MG/ML VIAL ONE ×2 (00:01→01:38)
[2019-03-16] MEDS ORDERED: NA CHLORIDE 0.9% 1,000 ML ONE ×2 (00:01→01:48)
[2019-03-16 00:10] LABS: Absolute Lymphocytes (CBC) 3.8 K/uL (0.7-4.9); Basophils % 2.4 % (0-1.3); Hematocrit 21.4 % (36.0-45.0); Lymphocytes % 22.4 % (15.3-44.8); MPV 9.6 fL (7.6-11.3); RBC Red Blood Cell Count 2.05 M/uL (3.86-4.86)
[2019-03-16 00:14] LABS: BUN Blood Urea Nitrogen 10 mg/dL (7-18); Bicarbonate 26 mmol/L (21-32); Glucose Level 101 mg/dL (74-106); Potassium 4.4 mmol/L (3.5-5.1); Sodium Level 138 mmol/L (136-145)
[2019-03-16 00:32] LABS: Anisocytosis 3+; Blood Morphology Comment NOTED (NOT SEEN); Platelet Estimate ADEQ; Poikilocytosis 2+
[2019-03-16] MEDS ORDERED: HYDROMORPHONE HCL 1 MG/ML INJ ONE ×3 (00:42→01:38)
[2019-03-16 00:55] LABS: Urine Blood 3+ (NEG); Urine Glucose NEGATIVE (NEG); Urine Protein 3+ (NEG)
--- NOTE | 2019-03-16 01:06 | ER ---
Nurse's Notes [facility] Name: Brennon Berg Age: 39 yrs Sex: Female : 1980 Arrival Date: 03/15/2019 Time: 23:34 Bed 5 Private MD: Diagnosis: Other sickle-cell disorders with crisis;Intractable pain Presentation: 03/15 23:30 Presenting complaint: Patient states: that she had 2 beers then a few hrs later started fc having severe pain all over. Denies any cough, fever or infection. Transition of care: patient was not received from another setting of care. Onset of symptoms was March 15, 2019 at 21:30. Risk Assessment: Do you want to hurt yourself or someone else? Patient reports no desire to harm self or others. Initial Sepsis Screen: Does the patient meet any 2 criteria? HR > 90 bpm. Yes Does the patient have a suspected source of infection? No. Patient's initial sepsis screen is negative. Care prior to arrival: None. 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 LMP N/A - Hysterectomy fc Historical: - Allergies: 23:39 Fentanyl; fc 23:39 Morphine; fc 23:39 Stadol; fc 23:39 tramadol; fc 23:39 Trazodone; fc 23:39 Toradol; fc 23:39 Ultram; fc 23:39 Reglan; fc 23:39 Zofran; fc - Home Meds: 23:39 gabapentin 300 mg Oral cap 1 cap 3 times per day [Active]; Hydrea 500 mg Oral cap TID fc [Active]; hydrocodone-acetaminophen 10-325 mg Oral tab [Active]; hydroxyurea 500 mg Oral cap 1 cap every 3 days [Active]; Keppra 250 mg Oral tab 1 tabs 2 times per day [Active]; promethazine 25 mg Oral tab as needed [Active]; Xanax 2 mg Oral tab 2 times a day [Active]; - PMHx: 23:39 aplastic anemia; L sided weakness; Myocardial infarction; Sickle Cell; Seizures; CVA; fc osteo to right leg 12/06; - PSHx: 23:39 Hysterectomy; spleenectomy; right chest port a cath; fc - Immunization history:: Last tetanus immunization: unknown. - Social history:: Smoking status: Patient/guardian denies using tobacco, Patient uses alcohol, but reports only rare drinking. Patient/guardian denies using street drugs. - Family history:: not pertinent. - Ebola Screening: : Patient negative for fever greater than or equal to 101.5 degrees Fahrenheit, and additional compatible Ebola Virus Disease symptoms Patient denies exposure to infectious person Patient denies travel to an Ebola-affected area in the 21 days before illness onset. - Hospitalizations: : No recent hospitalization is reported. Screenin:42 Abuse screen: Denies threats or abuse. Denies injuries from another. Nutritional rr5 screening: No deficits noted. Tuberculosis screening: No symptoms or risk factors identified. 03/16 02:25 Fall Risk Total [place] Fall Scale indicates High Risk Score (45 or more points). Fall bb prevention measures have been instituted. Side Rails Up X 2 As available patient and family educated on Fall Prevention Program and Strategies. Assessment: 03/15 23:30 General: Appears in no apparent distress. uncomfortable, Behavior is cooperative, rr5 restless, shouting in pain.. Reports had 2 beers consumed. 23:30 Pain: Complains of pain in body Pain does not radiate. Pain currently is 10 out of 10 rr5 on a pain scale. Quality of pain is described as aching, Pain began gradually, Is intermittent. Neuro: Level of Consciousness is awake, alert, obeys commands, Oriented to person, place, time, situation, Appropriate for age. Cardiovascular: Capillary refill < 3 seconds Patient's skin is warm and dry. Respiratory: Airway is patent Respiratory effort is even, unlabored, Respiratory pattern is regular, symmetrical. GI: No signs and/or symptoms were reported involving the gastrointestinal system. : No signs and/or symptoms were reported regarding the genitourinary system. EENT: No signs and/or symptoms were reported regarding the EENT system. Derm: Skin is intact, Skin temperature is warm. Musculoskeletal: Capillary refill < 3 seconds, contractured left arm. 03/16 00:26 Reassessment: pt moaning, crying, states she is still in pain Dr Cook notified new bb orders received pt medicated see OCT. 01:00 Reassessment: Patient appears in no apparent distress at this time. ED provider spoke rr5 to patient and agreed for admission. 01:05 Reassessment: ED provider made new order for patient still complaining of pain all over rr5 the body. 01:51 Reassessment: Patient appears in no apparent distress at this time. Patient and/or rr5 family updated on plan of care and expected duration. Pain level reassessed. Patient is alert, oriented x 3, equal unlabored respirations, skin warm/dry/pink. seen and examined by dr. howard. patient agreed for admission. Patient states feeling better. Patient states symptoms have improved. 02:25 Reassessment: pt appears to be sleeping, eyes closed, resp unlabored, IV site patent, bb intact, report called to Carolyn JORDAN for room 212. 03:01 Reassessment: pt appears to be sleeping, eyes closed, resp unlabored, no distress bb noted, IV site patent, intact with fluids infusing, notified Brigitte JORDAN charge for 2nd floor will let pt sleep for a while before bringing to her room. 03:26 Reassessment: Patient appears in no apparent distress at this time. Oxygen saturation rr5 maintaining at 99-100% at 2 liters via nasal cannula. 03:45 Reassessment: Patient appears in no apparent distress at this time. send to 2nd floor rr5 awake, breathing spontaneously port a cath intact, vitally stable. Vital Signs: 03/15 23:39 BP 195 / 115; Pulse 102; Resp 20; Temp 98.6(O); Pulse Ox 100% on R/A; Weight 77.11 kg fc (R); Height 5 ft. 3 in. (160.02 cm) (R); Pain 10/10; 23:56 BP 175 / 116; Pulse 95; Resp 19; Pulse Ox 96% on R/A; rr5 03/16 00:27 BP 180 / 112; Pulse 98; Resp 18 S; Pulse Ox 97% on 2 lpm NC; Pain 10/10; bb 01:30 BP 174 / 104; Pulse 90; Resp 17; Pulse Ox 99% on 2 lpm NC; rr5 01:56 BP 133 / 92; Pulse 95; Resp 21 S; Pulse Ox 96% on R/A; bb 03:02 BP 123 / 83; Pulse 86; Resp 16 S; Pulse Ox 99% on R/A; Pain 0/10; bb 03:44 BP 121 / 83; Pulse 81; Resp 16; Pulse Ox 99% on 2 lpm NC; rr5 03/15 23:39 Body Mass Index 30.11 (77.11 kg, 160.02 cm) ED Course: 03/15 23:30 Patient has correct armband on for positive identification. Placed in gown. Bed in low rr5 position. Call light in reach. Side rails up X2. monitor and storage bin tender on. 23:34 Patient arrived in ED. fc 23:34 Flaco Cook MD is Attending Physician. rn 23:37 Triage completed. fc 23:39 Arm band placed on Patient placed in an exam room, on a stretcher. fc 23:42 Ellis Jhaveri, NIKKI is Primary Nurse. rr5 23:45 Initial lab(s) drawn, by me, sent to lab. T\T\S collected, blood band applied to patient. bb Accessed Port-a-Cath. using accessed w/ # 20 Brasher needle, ,sterile technique, per hospital protocol. Clean \T\ dry. Dressing intact. Good blood return. Flushes easily. 03/16 00:16 Notified ED physician of a critical lab result(s). hemoglobin of 7.3. 01:04 Juan Howard DO is Hospitalizing Provider. rn 01:58 X-ray completed. Portable x-ray completed in exam room. Patient tolerated procedure mh1 well. 02:01 XRAY Chest (1 view) In Process Unspecified. EDMS 02:24 No provider procedures requiring assistance completed. Patient admitted, IV remains in bb place. 02:27 Antibody Identification Sent. bb Administered Medications: 03/15 23:50 Drug: NS 0.9% 1000 ml Route: IV; Rate: 1000 ml; Site: Port-a-cath; rr5 03/16 01:00 Follow up: Response: No adverse reaction; IV Status: Completed infusion; IV Intake: rr5 1000ml 03/15 23:51 Drug: Phenergan 25 mg Route: IVP; Site: Port-a-cath; rr5 03/16 00:25 Follow up: Response: No adverse reaction 03/15 23:52 Drug: Benadryl 50 mg Route: IVP; Site: Port-a-cath; rr5 03/16 00:26 Follow up: Response: No adverse reaction 03/15 23:54 Drug: Dilaudid 1 mg Route: IVP; Site: Port-a-cath; bb 03/16 00:25 Follow up: Response: Pain is unchanged, physician notified bb 00:25 Drug: Dilaudid 1 mg Route: IVP; Site: Port-a-cath; bb 01:17 Follow up: Response: Pain is unchanged, physician notified fc 01:25 Drug: Benadryl 50 mg Route: IVP; Site: Port-a-cath; rr5 02:20 Follow up: Response: Marked relief of symptoms bb 01:27 Drug: Ativan 1 mg Route: IVP; Site: Port-a-cath; rr5 02:19 Follow up: Response: Marked relief of symptoms bb 01:30 Drug: Dilaudid 1 mg Route: IVP; Site: Port-a-cath; rr5 02:19 Follow up: Response: Marked relief of symptoms bb Intake: 01:00 IV: 1000ml; Total: 1000ml. rr5 Outcome: 01:05 Decision to Hospitalize by Provider. rn 02:24 Admitted to Tele accompanied by tech, via stretcher, room 212, with chart, Report bb called to Carolyn RN 02:24 Condition: stable 02:24 Instructed on the need for admit. 03:46 Patient left the ED. rr5 Signatures: Dispatcher [employer] Saima Malone [facility] Britni Maxwell RN RN Scarlett Sullivan RN RN bb Flaco Cook MD MD rn Roque, Raymond, RN RN rr5 Corrections: (The following items were deleted from the chart) 01:39 03/15 23:30 Musculoskeletal: Circulation, motion, and sensation intact. Capillary rr5 refill < 3 seconds, rr5
--- NOTE | 2019-03-16 01:06 | EDPHYS ---
Physician Documentation [facility] Name: Brennon Berg Age: 39 yrs Sex: Female : 1980 Arrival Date: 03/15/2019 Time: 23:34 Bed 5 Private MD: ED Physician Flaco Cook HPI: 03/15 23:36 This 39 yrs old Black Female presents to ER via Unassigned with complaints of sickle rn cell disease. 23:36 Reports having sickle cell crisis, has been hurting for a few days, worse today after rn drinking a few beers, no trauma, "hurts all over", no cough/focal chest pain./fever.. Onset: The symptoms/episode began/occurred at an unknown time. Severity of symptoms: At their worst the symptoms were moderate in the emergency department the symptoms are unchanged. The patient has experienced similar episodes in the past. The patient has not recently seen a physician. 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 - Hysterectomy fc Historical: - Allergies: 23:39 Fentanyl; fc 23:39 Morphine; fc 23:39 Stadol; fc 23:39 tramadol; fc 23:39 Trazodone; fc 23:39 Toradol; fc 23:39 Ultram; fc 23:39 Reglan; fc 23:39 Zofran; fc - Home Meds: 23:39 gabapentin 300 mg Oral cap 1 cap 3 times per day [Active]; Hydrea 500 mg Oral cap TID fc [Active]; hydrocodone-acetaminophen 10-325 mg Oral tab [Active]; hydroxyurea 500 mg Oral cap 1 cap every 3 days [Active]; Keppra 250 mg Oral tab 1 tabs 2 times per day [Active]; promethazine 25 mg Oral tab as needed [Active]; Xanax 2 mg Oral tab 2 times a day [Active]; - PMHx: 23:39 aplastic anemia; L sided weakness; Myocardial infarction; Sickle Cell; Seizures; CVA; fc osteo to right leg 12/06; - PSHx: 23:39 Hysterectomy; spleenectomy; right chest port a cath; fc - Immunization history:: Last tetanus immunization: unknown. - Social history:: Smoking status: Patient/guardian denies using tobacco, Patient uses alcohol, but reports only rare drinking. Patient/guardian denies using street drugs. - Family history:: not pertinent. - Ebola Screening: : Patient negative for fever greater than or equal to 101.5 degrees Fahrenheit, and additional compatible Ebola Virus Disease symptoms Patient denies exposure to infectious person Patient denies travel to an Ebola-affected area in the 21 days before illness onset. - Hospitalizations: : No recent hospitalization is reported. ROS: 23:36 Constitutional: Negative for fever, chills, and weight loss, Eyes: Negative for injury, rn pain, redness, and discharge, Neck: Negative for injury, pain, and swelling, Cardiovascular: Negative for chest pain, palpitations, and edema, Respiratory: Negative for shortness of breath, cough, wheezing, and pleuritic chest pain, Abdomen/GI: Negative for abdominal pain, nausea, vomiting, diarrhea, and constipation, MS/Extremity: Negative for injury and deformity, Skin: Negative for injury, rash, and discoloration, Neuro: Negative for headache, weakness, numbness, tingling, and seizure. Exam: 23:36 Constitutional: This is a well developed, well nourished patient who is awake, alert, rn moaning and appears in pain. Head/Face: Normocephalic, atraumatic. Eyes: Pupils equal round and reactive to light, extra-ocular motions intact. Cardiovascular: Regular rate and rhythm. No pulse deficits. Respiratory: Lungs have equal breath sounds bilaterally, clear to auscultation. Mild tachypnea Abdomen/GI: soft, non-tender MS/ Extremity: Pulses equal, no cyanosis. Neurovascular intact. Full, normal range of motion. Equal circumference. Neuro: Awake and alert, GCS 15, oriented to person, place, time, and situation. Cranial nerves II-XII grossly intact. Moves all 4 extremities Vital Signs: 23:39 BP 195 / 115; Pulse 102; Resp 20; Temp 98.6(O); Pulse Ox 100% on R/A; Weight 77.11 kg fc (R); Height 5 ft. 3 in. (160.02 cm) (R); Pain 10/10; 23:56 BP 175 / 116; Pulse 95; Resp 19; Pulse Ox 96% on R/A; rr5 03/16 00:27 BP 180 / 112; Pulse 98; Resp 18 S; Pulse Ox 97% on 2 lpm NC; Pain 10/10; bb 01:30 BP 174 / 104; Pulse 90; Resp 17; Pulse Ox 99% on 2 lpm NC; rr5 01:56 BP 133 / 92; Pulse 95; Resp 21 S; Pulse Ox 96% on R/A; bb 03:02 BP 123 / 83; Pulse 86; Resp 16 S; Pulse Ox 99% on R/A; Pain 0/10; bb 03:44 BP 121 / 83; Pulse 81; Resp 16; Pulse Ox 99% on 2 lpm NC; rr5 03/15 23:39 Body Mass Index 30.11 (77.11 kg, 160.02 cm) fc MDM: 03/15 23:34 Patient medically screened. rn 03/16 01:02 Differential Diagnosis Sickle cell crisis, anemia. rn 01:03 Data reviewed: vital signs, nurses notes, lab test result(s), radiologic studies, and rn as a result, I will admit patient. Counseling: I had a detailed discussion with the patient and/or guardian regarding: the historical points, exam findings, and any diagnostic results supporting the discharge/admit diagnosis, lab results, radiology results, the need for further work-up and treatment in the hospital. Response to treatment: There is no appreciated change of the patient's symptoms at this time, and as a result, I will admit patient. Admission orders: after a detailed discussion of the patient's condition and case, the admit orders are written by me. ED course: Will admit for pain control and possible transfusion, retic count appropriate, patient denies cough/focal chest pain or other signs/symptoms of acute chest syndrome.. 03/15 23:35 Order name: Retic Count; Complete Time: 00:55 rn 03/15 23:35 Order name: CBC with Diff; Complete Time: 00:55 rn 03/15 23:35 Order name: BMP; Complete Time: 00:15 rn 03/15 23:35 Order name: Type And Screen rn 03/16 00:36 Order name: Manual Differential; Complete Time: 00:55 [facility] 03/16 00:39 Order name: Urine Dipstick--Ancillary (enter results); Complete Time: 01:05 [facility] 03/16 00:39 Order name: Urine --Ancillary (enter results); Complete Time: 01:05 [facility] 03/16 00:57 Order name: Antibody Identification [facility] 03/16 01:03 Order name: XRAY Chest (1 view) rn Administered Medications: 03/15 23:50 Drug: NS 0.9% 1000 ml Route: IV; Rate: 1000 ml; Site: Port-a-cath; rr5 03/16 01:00 Follow up: Response: No adverse reaction; IV Status: Completed infusion; IV Intake: rr5 1000ml 03/15 23:51 Drug: Phenergan 25 mg Route: IVP; Site: Port-a-cath; rr5 03/16 00:25 Follow up: Response: No adverse reaction 03/15 23:52 Drug: Benadryl 50 mg Route: IVP; Site: Port-a-cath; rr5 03/16 00:26 Follow up: Response: No adverse reaction 03/15 23:54 Drug: Dilaudid 1 mg Route: IVP; Site: Port-a-cath; bb 03/16 00:25 Follow up: Response: Pain is unchanged, physician notified bb 00:25 Drug: Dilaudid 1 mg Route: IVP; Site: Port-a-cath; bb 01:17 Follow up: Response: Pain is unchanged, physician notified 01:25 Drug: Benadryl 50 mg Route: IVP; Site: Port-a-cath; rr5 02:20 Follow up: Response: Marked relief of symptoms bb 01:27 Drug: Ativan 1 mg Route: IVP; Site: Port-a-cath; rr5 02:19 Follow up: Response: Marked relief of symptoms bb 01:30 Drug: Dilaudid 1 mg Route: IVP; Site: Port-a-cath; rr5 02:19 Follow up: Response: Marked relief of symptoms Disposition: 03/16/19 01:05 Hospitalization ordered by Juan Gill for Observation. Preliminary diagnosis are Other sickle-cell disorders with crisis, Intractable pain. - Bed requested for Telemetry/MedSurg (observation). - Status is Observation. rr5 - Condition is Stable. - Problem is new. - Symptoms have improved. UTI on Admission? No Signatures: Dispatcher [employer] [facility] Britni Maxwell RN RN Sullivan, Scarlett, RN RN bb Cook, Flaco, MD MD rn Jesús, Cesilia, RN RN cg Jhaveri, Ellis, RN RN rr5 Corrections: (The following items were deleted from the chart) 01:07 01:05 Hospitalization Ordered by Juan Gill DO for Inpatient Admission. Preliminary rn diagnosis is Other sickle-cell disorders with crisis. Bed requested for Telemetry/MedSurg (Inpatient). Status is Inpatient Admission. Condition is Stable. Problem is new. Symptoms have improved. UTI on Admission? No. rn 01:43 01:07 03/16/2019 01:05 Hospitalization Ordered by Juan Gill DO for Inpatient development intern. Preliminary diagnosis is Other sickle-cell disorders with crisis; Intractable pain. Bed requested for Telemetry/MedSurg (Inpatient). Status is Inpatient Admission. Condition is Stable. Problem is new. Symptoms have improved. UTI on Admission? No. rn 02:12 01:43 03/16/2019 01:05 Hospitalization Ordered by Juan Gill DO for Observation. cg Preliminary diagnosis is Other sickle-cell disorders with crisis; Intractable pain. Bed requested for Telemetry/MedSurg (observation). Status is Observation. Condition is Stable. Problem is new. Symptoms have improved. UTI on Admission? No. rn 03:46 02:12 03/16/2019 01:05 Hospitalization Ordered by JuanCarmencita BRADSHAW for Observation. rr5 Preliminary diagnosis is Other sickle-cell disorders with crisis; Intractable pain. Bed requested for Telemetry/MedSurg (observation). Status is Observation. Condition is Stable. Problem is new. Symptoms have improved. UTI on Admission? No. cg
[2019-03-16] MEDS ORDERED: LORazepam 2 MG/ML VIAL ONE (01:37)
[2019-03-16] MEDS ORDERED: ACETAMINOPHEN 500 MG TAB PO PRN (02:26)
[2019-03-16] MEDS ORDERED: ALPRAZOLAM 1 MG TABLET PO PRN (02:26)
--- NOTE | 2019-03-16 02:46 | P.HP ---
Certification for Inpatient Patient admitted to: Observation With expected LOS: <2 Midnights Patient will require the following post-hospital care: None Practitioner: I am a practitioner with admitting privileges, knowledge of patient current condition, hospital course, and medical plan of care. Services: Services provided to patient in accordance with Admission requirements found in Title 42 Section 412.3 of the Code of Federal Regulations Patient History Date of Service: 03/16/19 Primary Care Provider: Dr. Guaman Reason for admission: Acute body pain History of Present Illness: 39-year-old female presented to the emergency room with acute generalized pain. Patient with history of sickle cell disease, hypertension and CAD. Patient well-known to hospitalist service for recurrent admissions for sickle cell crisis. In the ER patient was evaluated. She reported nonspecific pain throughout her body. Patient required multiple doses of IV pain medication, antinausea medication and anti anxiety medication. White count 17.1, hemoglobin 7.3. Sodium 138, potassium 4.4, creatinine within normal range. Urinalysis negative. test negative. Chest x-ray negative. Absolute retic count 0.48 with a percent retic count of 23. Patient required hospitalization further monitor and address. When I saw the patient in the ER, she appeared comfortable. Pain under control. Allergies butorphanol tartrate [From Stadol] Allergy (Severe, Verified 08/11/17 06:27) seizures ketorolac tromethamine [From Toradol] Allergy (Severe, Verified 08/11/17 06:27) SEIZURES ondansetron HCl [From Zofran] Allergy (Severe, Verified 08/11/17 06:27) SEIZURES morphine Allergy (Intermediate, Verified 08/11/17 06:27) Hives fentanyl Allergy (Verified 04/16/18 03:32) Itching/Hives/Rash ondansetron [From Zofran (as hydrochloride)] Allergy (Verified 04/16/18 03:32) seizures tramadol Allergy (Verified 08/11/17 06:27) seizure trazodone Allergy (Verified 08/11/17 06:27) seizure metoclopramide [From Reglan] Adverse Reaction (Verified 08/11/17 06:27) SEIZURES Zofran (as Allergy (Uncoded 08/11/17 06:27) Unknown Zofran (as hydrochl Allergy (Uncoded 08/11/17 06:27) Unknown Zofran (as hydrochlori Allergy (Uncoded 08/11/17 18:30) Unknown Zofran (as hydrochloride) Allergy (Uncoded 12/01/17 03:47) Unknown Home medications list reviewed: Yes Home Medications: ALPRAZolam [Xanax*] 2 mg PO TID PRN 03/07/17 Hydrocodone 10/APAP 325 [[place] 10/325*] 2 tab PO Q4H PRN 03/07/17 Hydroxyurea [Hydrea*] 500 mg PO TID 03/07/17 Promethazine HCl 25 mg PO Q4H PRN 03/07/17 hydrOXYzine HCl [Atarax] 50 mg PO BID PRN 03/07/17 levETIRAcetam [Keppra*] 250 mg PO TID 03/07/17 Pantoprazole Sodium [Protonix] 40 mg PO DAILY #30 tablet. 09/15/18 - Past Medical/Surgical History Diabetic: No -: Sickle cell disease -: History of CVA -: CAD -: Hypertension -: Seizure disorder -: Insomnia -: History of endocarditis -: Anxiety disorder -: Chronic pain -: Right axillary lumpectomy -: Splenectomy -: Cholecystectomy -: Partial hysterectomy -: 6 portacaths -: 6 piccs -: Psychosocial/ Personal History: The patient is . She has 2 children. - Family History Father -: Heart disease, Hypertension Mother -: Hypertension - Social History Smoking Status: Unknown if ever smoked Alcohol use: No CD- Drugs: No Caffeine use: Yes Place of Residence: Home Review of Systems General: As per HPI Eyes: Unremarkable ENT: Unremarkable Respiratory: Unremarkable Cardiovascular: Unremarkable Gastrointestinal: Unremarkable Genitourinary: Unremarkable Musculoskeletal: Shoulder Pain, Arm Pain, Back Pain, As per HPI Integumentary: Unremarkable Neurological: Unremarkable Lymphatics: Unremarkable Physical Examination - Physical Exam General: Alert, In no apparent distress, Oriented x3, Cooperative HEENT: Atraumatic, Normocephalic, PERRLA, Mucous membr. moist/pink Neck: Supple, No Thyromegaly Respiratory: Clear to auscultation bilaterally, Normal air movement Cardiovascular: Normal pulses, Regular rate/rhythm Gastrointestinal: Normal bowel sounds, Soft and benign, Non-distended, No tenderness, No masses, No rebound, No guarding Musculoskeletal: No erythema, No tenderness, No warmth Integumentary: No tenderness/swelling, No erythema, No warmth, No cyanosis Neurological: Normal speech, Normal strength at 5/5 x4 extr, Normal tone, Normal affect - Studies Laboratory Data (last 24 hrs) 03/15/19 23:45: Sodium 138, Potassium 4.4, BUN 10, Creatinine 0.64, Glucose 101 03/15/19 23:45: WBC 17.1 H D, Hgb 7.3 L*, Hct 21.4 L, Plt Count 210 D Assessment and Plan - Plan Impression: Generalized nonspecific pain with sickle cell disease Hypertension CAD Chronic pain Anxiety disorder Seizure disorder Plan: Generalized nonspecific pain with sickle cell disease: Patient will be admitted for observation. Hemoglobin 7.3 appears stable compared to previous hospitalizations. Will monitor this closely. Will consider transfusion if hemoglobin below 7.0. Will continue with IV fluid hydration. Will provide medication for pain including hydrocodone and gabapentin. Will limit IV pain medication-Dilaudid. This was discussed in detail with the patient. The patient understands that she needs to try oral medication. Will monitor this closely. Will provide DVT prophylaxis-SCD. Anticipate discharge tomorrow with clinical improvement. Hypertension: Will provide medication for blood pressure control. CAD: Overall stable. Chronic pain: As discussed above. Will start with oral medication-hydrocodone and gabapentin. Will limit IV pain medication. This was discussed in detail. Patient sees chronic pain management as an outpatient. Anxiety disorder: Will provide medication as needed. Seizure disorder: Will continue with her medication. Discharge Plan: Home Plan to discharge in: 24 Hours - Advance Directives Does patient have a Living Will: No Does patient have a Durable POA for Healthcare: No - Code Status/Comfort Care Code Status Assessed: Yes (Patient is full code) Time Spent Managing Pts Care (In Minutes): 55
[2019-03-16] MEDS ORDERED: HYDRALAZINE HCL 20 MG/ML VIAL IV PRN (02:47)
[2019-03-16] MEDS: NA CHLORIDE 0.9% 1,000 ML IV SCH ×2 (04:03→22:26)
[2019-03-16] MEDS: PROMETHAZINE 25 MG/ML VIAL IV PRN (04:03)
[2019-03-16] MEDS: HYDROMORPHONE HCL 0.5 MG/0.5 ML INJ IV PRN ×5 (04:07→21:09)
[2019-03-16 04:14] VITALS: BMI 29.9
[2019-03-16 05:09] LABS: Urine Appearance CLEAR; Urine Bilirubin NEGATIVE (NEG); Urine Blood 3+ (NEG); Urine Color DK YELLOW; Urine Glucose NEGATIVE (NEG); Urine Microscopic Reflex ORDER UMIC; Urine Protein 2+ (NEG)
[2019-03-16 05:21] LABS: Urine Bacteria <20 /HPF (<20); Urine Culture Reflex Order NOT NEEDED; Urine RBC <5 /HPF (NONE SEEN)
[2019-03-16] MEDS: HYDROCODONE/APAP 10/325 TAB PO PRN ×3 (05:27→19:10)
--- NOTE | 2019-03-16 08:11 | RAD REPORT ---
EXAM DESCRIPTION: RAD - Chest Single View - 03/16/2019 2:00 am CLINICAL HISTORY: Chest pain, sickle cell crisis COMPARISON: September 25, 2018 TECHNIQUE: AP portable chest image was obtained 0159 hours . FINDINGS: Lung volumes are low. No peripheral mass or consolidation. No significant pulmonary edema findings. Right-sided Port-A-Cath is in place. Cardiac silhouette is enlarged. Upper lobe vasculature within normal limits shallow inspiration portable imaging. No measurable pleural effusion and no pne umothorax. No acute bony abnormality seen. No acute aortic findings suspected. IMPRESSION: No acute cardiopulmonary process. Above detailed chest findings are not substantially different comparison.
[2019-03-16] MEDS: MULTIVITAMIN TAB PO SCH (09:04)
[2019-03-16] MEDS: levETIRAcetam 500 MG TAB PO SCH ×2 (09:05→21:00)
[2019-03-16] MEDS: HYDROXYUREA 500 MG CAP PO SCH ×3 (09:05→21:00)
[2019-03-16] MEDS: GABAPENTIN 300 MG CAP PO SCH ×3 (09:06→21:09)
[2019-03-16] MEDS: FAMOTIDINE 20 MG TAB PO SCH ×2 (09:06→21:09)
[2019-03-16] MEDS: hydrOXYzine HCl 25 MG TAB PO PRN (09:10)
--- NOTE | 2019-03-16 13:39 | PN ---
Date of Progress Note: 03/16/2019 Subjective: Patient is seen and examined. Chart reviewed and case discussed with RN. The patient a sking for Dilaudid, Benadryl and Phenergan IV at the same time. I explained to her that this is not a safe practice and may lead to respiratory depression. She states that she has been receiving this cocktail at other facilities. She understands why she cannot have these 3 medications which can pote ntially have synergistic effects together may need to be spaced out. Does not appear to be in signif icant pain at this time. Medications: List reviewed. Physical Examination: Vital Signs: Temperature 97.8, heart rate 93, blood pressure 163/96, respirations 15, O2 of 100% on 2 L via nasal cannula. General: Awake, alert, oriented x3. Does not appear to be in any acute distress. CV: S1, S2. Regular rate and rhythm. Peripheral pulses present. Respiratory: Moving air well bilaterally. No wheezing or stridor. No use of accessory muscles. Gastrointestinal: Abdomen is soft, nontender, nondistended. Positive bowel sounds. Extremities: No clubbing, cyanosis, or edema. Patient has left upper extremity contracture. Musculoskeletal: The patient does have tenderness to palpation in her lower extremity. Laboratory Data: Pending. Assessment: A 39-year-old female with: 1.Acute sickle cell crisis. We will continue with IV fluid hydration and pain medications. 2.Sickle cell disease. We will monitor H and H, retic count. We will contact the patient's hematol ogist, Dr. Guaman in [place] on Sunday. The patient states she has had multiple admissions this year for more than her usual stating she has been admitted 13 times and is only February. 3.Essential hypertension. We will resume home medications as appropriate. 4.Coronary artery disease [place] artery and [place] heart without angina, stable. 5.Chronic pain disorder. Patient is on gabapentin and [place] at home. We will continue. 6.Generalized anxiety disorder. Patient states she no longer takes Xanax. We will discontinue Xana x for now. 7.Seizure disorder. Continue levetiracetam. Plan: We will continue with pain control. Medications have been adjusted. We will monitor for sign s of respiratory depression with pain medications, likely discontinued in the next 48 to 72 hours dep ending on improvement. SA/MODL Voice ID: [id number] Report ID: [id number]
[2019-03-17] MEDS: HYDROMORPHONE HCL 0.5 MG/0.5 ML INJ IV PRN ×3 (00:51→09:00)
[2019-03-17] MEDS: HYDROCODONE/APAP 10/325 TAB PO PRN ×6 (03:11→23:43)
[2019-03-17 06:36] LABS: Absolute Lymphocytes (CBC) 5.5 K/uL (0.7-4.9); Basophils % 3.5 % (0-1.3); Hematocrit 18.4 % (36.0-45.0); Lymphocytes % 27.6 % (15.3-44.8); MPV 9.1 fL (7.6-11.3); RBC Red Blood Cell Count 1.75 M/uL (3.86-4.86)
[2019-03-17 06:51] LABS: BUN Blood Urea Nitrogen 9 mg/dL (7-18); Bicarbonate 29 mmol/L (21-32); Glucose Level 132 mg/dL (74-106); Magnesium 1.9 mg/dL (1.8-2.4); Potassium 3.9 mmol/L (3.5-5.1); Sodium Level 139 mmol/L (136-145)
[2019-03-17] MEDS: hydrOXYzine HCl 25 MG TAB PO PRN (07:16)
[2019-03-17] MEDS ORDERED: FUROSEMIDE 20 MG/ 2ML VIAL IV ONE (07:27)
[2019-03-17 07:55] LABS: Anisocytosis 2+; Blood Morphology Comment NOTED (NOT SEEN); Macrocytosis 1+; Platelet Estimate ADEQ; Polychromasia 2+
[2019-03-17 07:56] LABS: Poikilocytosis 2+; Target Cells 2+
[2019-03-17] MEDS ORDERED: POTASSIUM 25 MEQ EFFERV TAB PO ONE (09:00)
[2019-03-17] MEDS: FAMOTIDINE 20 MG TAB PO SCH ×2 (09:00→21:00)
[2019-03-17] MEDS: GABAPENTIN 300 MG CAP PO SCH ×3 (09:00→21:00)
[2019-03-17] MEDS: levETIRAcetam 500 MG TAB PO SCH ×2 (09:00→21:00)
[2019-03-17] MEDS: HYDROXYUREA 500 MG CAP PO SCH ×3 (09:00→21:00)
[2019-03-17] MEDS: MULTIVITAMIN TAB PO SCH (09:00)
--- NOTE | 2019-03-17 09:45 | RAD REPORT ---
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 FINDINGS: No fracture, dislocation or periosteal reaction. No acute or destructive bone process seen . No radiographic findings for osteomyelitis. Osteomyelitis can exist prior to radiographic evident b one destruction. No significant degenerative change or significant joint finding. No plantar spur. Plantar soft tissue s near the MTP joints are prominent. There is no air or foreign body in the soft tissues. IMPRESSION: No radiographic evidence for osteomyelitis. Osteomyelitis can exist prior to radiographic bone destruction. Continued ongoing clinical concerns f or osteomyelitis can be addressed with MR imaging.
[2019-03-17] MEDS: HYDROMORPHONE HCL 1 MG/ML INJ IV PRN ×3 (12:56→21:01)
[2019-03-17] MEDS: NA CHLORIDE 0.9% 1,000 ML IV SCH (13:01)
[2019-03-17] MEDS ORDERED: NA CHLORIDE 0.9% 50 ML ONE (14:44)
--- NOTE | 2019-03-17 15:52 | PN ---
Date of Progress Note: 03/17/2019 Subjective: Patient is seen and examined. Chart reviewed and case discussed with RN. Patient still has significant amount of pain. States it is not well controlled. Her hemoglobin dropped as well, will need blood transfusion. Medications: List reviewed. Physical Examination: Vital Signs: Temperature 97.3, heart rate 88, blood pressure 140/93, respirations 18, O2 100% on 2 L via nasal cannula. General: Awake, alert, oriented x3. Ill-appearing female. CV: S1, S2. Peripheral pulses present. Respiratory: Moving air well bilaterally. No wheezing. Gastrointestinal: Abdomen is soft, nontender, nondistended. Positive bowel sounds. Extremities: No clubbing, cyanosis, or edema. Neuro: Patient has contracture of the left upper extremity. Skin: No rashes. Normal skin turgor. Musculoskeletal: Patient has tenderness in multiple areas including lower extremities. Laboratory Data: Sodium 139, potassium 3.9, chloride 106, CO2 of 29, BUN 9, creatinine 0.49, glucose 132, calcium 9, magnesium 1.9. WBC 19.8, H and H of 6.2 and 18.4, platelets 203, neutrophils 50%. Imaging studies: X-ray of the foot shows no radiographic evidence for osteomyelitis. No significant degenerative change or significant joint finding. No foreign bodies. Assessment And Plan: A 39-year-old female with: 1.Acute sickle cell crisis. Patient is still having significant amount of pain. We will increase d ose of Dilaudid to 1 mg q.4. Continue with IV fluid hydration. 2.Sickle cell disease. Hemoglobin has dropped below 7. We will transfuse 1 unit PRBC and continue to monitor. We will give Lasix after the unit of blood. 3.Essential hypertension, stable. We will continue medications. 4.Coronary artery disease, [place] artery, and [place] heart without angina, stable. 5.Chronic pain disorder. Continue with gabapentin and [place]. 6.Generalized anxiety disorder, stable. We will use benzodiazepines as needed. 7.Seizure disorder, on levetiracetam. 8.Deep venous thrombosis prophylaxis with SCDs. Plan: Adjust pain medications. Transfuse blood. Likely discharge in the next 24 hours depending on clinical response. SA/MODL Voice ID: [id number] Report ID: [id number]
[2019-03-17 19:50] LABS: Hematocrit 21.5 % (36.0-45.0)
[2019-03-18] MEDS: HYDROMORPHONE HCL 1 MG/ML INJ IV PRN ×4 (00:59→12:45)
[2019-03-18 05:18] LABS: Absolute Lymphocytes (CBC) 4.1 K/uL (0.7-4.9); Basophils % 2.7 % (0-1.3); Hematocrit 21.7 % (36.0-45.0); Lymphocytes % 27.6 % (15.3-44.8); MPV 9.4 fL (7.6-11.3)
[2019-03-18 05:33] LABS: BUN Blood Urea Nitrogen 12 mg/dL (7-18); Bicarbonate 32 mmol/L (21-32); Glucose Level 108 mg/dL (74-106); Magnesium 1.7 mg/dL (1.8-2.4); Potassium 4.6 mmol/L (3.5-5.1); Sodium Level 143 mmol/L (136-145)
[2019-03-18] MEDS: HYDROXYUREA 500 MG CAP PO SCH ×3 (08:45→20:46)
[2019-03-18] MEDS: levETIRAcetam 500 MG TAB PO SCH ×2 (08:45→20:46)
[2019-03-18] MEDS: GABAPENTIN 300 MG CAP PO SCH ×3 (08:49→20:46)
[2019-03-18] MEDS: FAMOTIDINE 20 MG TAB PO SCH ×2 (08:49→20:46)
[2019-03-18] MEDS: MULTIVITAMIN TAB PO SCH (08:50)
[2019-03-18] MEDS ORDERED: MAGNESIUM SULFATE 1 gm IVPB 1 GM/100 ML BAG IV ONE (09:00)
[2019-03-18 09:21] LABS: Anisocytosis 3+; Blood Morphology Comment NOTED (NOT SEEN); Platelet Estimate ADEQ; Poikilocytosis 2+; Polychromasia 1+; Target Cells 1+
[2019-03-18] MEDS: HYDROCODONE/APAP 10/325 TAB PO PRN (10:25)
[2019-03-18] MEDS: NA CHLORIDE 0.9% 1,000 ML IV SCH ×2 (12:47→14:26)
--- NOTE | 2019-03-18 13:28 | P.PN ---
Subjective Date of Service: 03/18/19 Primary Care Provider: Dr. Guaman Chief Complaint: Acute body pain Patient seen and examined at bedside. No family at bedside. Chart reviewed and case discussed with nursing staff. Continues to complain of significant pain, generalized. She is status post 1 unit PRBC No acute events noted overnight Review of Systems 10-point ROS is otherwise unremarkable Physical Examination - Vital Signs Temperature: 97.5 F Blood Pressure: 148/93 Pulse: 92 Respirations: 16 Pulse Ox (%): 100 - Physical Exam General: Alert, Oriented x3, Mild distress, Moderate distress, Other (Ill appearing) HEENT: Atraumatic, PERRLA, EOMI Neck: Supple, JVD not distended Respiratory: Clear to auscultation bilaterally, Normal air movement Cardiovascular: Regular rate/rhythm, Normal S1 S2 Gastrointestinal: Normal bowel sounds, No tenderness Musculoskeletal: Contractures (Left upper extremity), Tenderness Integumentary: No rashes Neurological: Normal speech, Normal tone, Normal affect Lymphatics: No axilla or inguinal lymphadenopathy - Studies Laboratory Data (last 24 hrs) 03/18/19 05:04: Sodium 143, Potassium 4.6, BUN 12, Creatinine 0.65, Glucose 108 H, Magnesium 1.7 L 03/18/19 05:04: WBC 14.9 H D, Hgb 7.3 L*, Hct 21.7 L, Plt Count 193 03/17/19 19:28: Hgb 7.4 L*, Hct 21.5 L D Assessment And Plan - Current Problems (Diagnosis) (1) Sickle cell crisis Onset Date: 09/06/15 Current Visit: No Status: Acute Plan: The patient continues to have significant amount of pain. We will increase her dose of Dilaudid to 2 mg q. 4. -Continue with IV fluid hydration. -will continue to monitor pain, along with vital signs. We will reduce pain medications if vital signs/breathing changes. 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 -Hemoglobin 7.3 after transfusion seems to be around patient's baseline. -Will continue to monitor (3) Anxiety Onset Date: 03/07/17 Current Visit: No Status: Chronic Plan: Stable -Continue current medications as needed. (4) CAD (coronary artery disease) Onset Date: 03/07/17 Current Visit: No Status: Chronic Plan: Stable Qualifiers: Coronary Disease-Associated Artery/Lesion type: [place] artery [place] vs. transplanted heart: [place] heart Associated angina: without angina Qualified Code(s): I25.10 - Atherosclerotic heart disease of [place] coronary artery without angina pectoris (5) Chronic pain disorder Onset Date: 03/07/17 Current Visit: No Status: Chronic Plan: Continue with the current gabapentin [place]. -recommended patient would benefit from outpatient pain management physician follow up for continued pain management. (6) Seizure disorder Onset Date: 03/07/17 Current Visit: No Status: Chronic Plan: Stable. -Continue Keppra (7) Hypertension Current Visit: Yes Status: Acute Plan: Stable. -continue current medication Qualifiers: Hypertension type: essential hypertension Qualified Code(s): I10 - Essential (primary) hypertension - Plan DVT prophylaxis: SCDs GI prophylaxis: None Diet: Regular Disposition: Continue pain control. Possible discharge in the next 12:48 p.m. depending on clinical response
[2019-03-18] MEDS: PROMETHAZINE 25 MG/ML VIAL IV PRN ×3 (13:30→20:46)
[2019-03-18] MEDS: HYDROMORPHONE HCL 2 MG/ML inj IV PRN ×2 (16:45→20:45)
[2019-03-19] MEDS: HYDROMORPHONE HCL 2 MG/ML inj IV PRN ×6 (00:57→22:32)
[2019-03-19] MEDS: PROMETHAZINE 25 MG/ML VIAL IV PRN ×6 (00:57→22:33)
[2019-03-19] MEDS: HYDROCODONE/APAP 10/325 TAB PO PRN ×3 (02:37→21:29)
[2019-03-19] MEDS: NA CHLORIDE 0.9% 1,000 ML IV SCH (04:50)
[2019-03-19 05:51] LABS: BUN Blood Urea Nitrogen 12 mg/dL (7-18); Bicarbonate 33 mmol/L (21-32); Glucose Level 93 mg/dL (74-106); Magnesium 1.9 mg/dL (1.8-2.4); Potassium 4.7 mmol/L (3.5-5.1); Sodium Level 140 mmol/L (136-145)
[2019-03-19] MEDS: levETIRAcetam 500 MG TAB PO SCH ×2 (08:11→21:00)
[2019-03-19] MEDS: MULTIVITAMIN TAB PO SCH (08:11)
[2019-03-19] MEDS: GABAPENTIN 300 MG CAP PO SCH ×3 (08:11→21:30)
[2019-03-19] MEDS: FAMOTIDINE 20 MG TAB PO SCH ×2 (08:11→21:30)
[2019-03-19] MEDS: HYDROXYUREA 500 MG CAP PO SCH ×3 (08:11→21:00)
[2019-03-19 11:05] LABS: Absolute Lymphocytes (CBC) 6.2 K/uL (0.7-4.9); Basophils % 2.1 % (0-1.3); Hematocrit 19.8 % (36.0-45.0); Lymphocytes % 35.1 % (15.3-44.8); MPV 9.5 fL (7.6-11.3); RBC Red Blood Cell Count 1.92 M/uL (3.86-4.86)
[2019-03-19 12:05] LABS: Anisocytosis 3+; Blood Morphology Comment NOTED (NOT SEEN); Elliptocytes 1+; Macrocytosis 2+; Platelet Estimate ADEQ; Polychromasia SLIGHT
[2019-03-19 12:07] LABS: Poikilocytosis 1+; Target Cells 1+
[2019-03-19] MEDS ORDERED: FUROSEMIDE 20 MG/ 2ML VIAL IV ONE (12:32)
--- NOTE | 2019-03-19 13:58 | P.PN ---
Subjective Date of Service: 03/19/19 Primary Care Provider: Dr. Guaman Chief Complaint: Acute body pain Patient seen and examined at bedside. No family at bedside. Chart reviewed and case discussed with nursing staff. Continues to complain of significant pain, generalized but very drowsy after her dilaudid this am. She is status post 1 unit PRBC, 6.8 today. No acute events noted overnight Patient refusing any other medication except for pain medications. Review of Systems 10-point ROS is otherwise unremarkable Physical Examination - Vital Signs Temperature: 97.7 F Blood Pressure: 119/84 Pulse: 95 Respirations: 18 Pulse Ox (%): 100 - Physical Exam General: Alert, Moderate distress HEENT: Atraumatic, PERRLA, EOMI Neck: Supple, JVD not distended Respiratory: Clear to auscultation bilaterally, Normal air movement Cardiovascular: Regular rate/rhythm, Normal S1 S2 Gastrointestinal: Normal bowel sounds, No tenderness Musculoskeletal: No tenderness Integumentary: No rashes Neurological: Normal speech, Normal tone, Normal affect Lymphatics: No axilla or inguinal lymphadenopathy Assessment And Plan - Current Problems (Diagnosis) (1) Sickle cell crisis Onset Date: 09/06/15 Current Visit: No Status: Acute Plan: The patient continues to have significant amount of pain. We will continue her dose of Dilaudid to 2 mg but increase interval to q.6h. -Continue with IV fluid hydration. -will continue to monitor pain, along with vital signs. We will reduce pain medications if vital signs/breathing changes. 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 -Hemoglobin down to 6.8. We will transfuse 1 unit PRBC -Will continue to monitor (3) Anxiety Onset Date: 03/07/17 Current Visit: No Status: Chronic Plan: Stable -Continue current medications as needed. (4) CAD (coronary artery disease) Onset Date: 03/07/17 Current Visit: No Status: Chronic Plan: Stable Qualifiers: Coronary Disease-Associated Artery/Lesion type: [place] artery [place] vs. transplanted heart: [place] heart Associated angina: without angina Qualified Code(s): I25.10 - Atherosclerotic heart disease of [place] coronary artery without angina pectoris (5) Chronic pain disorder Onset Date: 03/07/17 Current Visit: No Status: Chronic Plan: Continue with the current gabapentin [place]. -recommended patient would benefit from outpatient pain management physician follow up for continued pain management. (6) Seizure disorder Onset Date: 03/07/17 Current Visit: No Status: Chronic Plan: Stable. -Continue Keppra (7) Hypertension Current Visit: Yes Status: Acute Plan: Stable. -continue current medication Qualifiers: Hypertension type: essential hypertension Qualified Code(s): I10 - Essential (primary) hypertension - Plan DVT prophylaxis: SCDs GI prophylaxis: None Diet: Regular Disposition: Continue pain control. Possible discharge in the next 24-48 hrs depending on clinical response
[2019-03-19] MEDS ORDERED: NA CHLORIDE 0.9% 250 ML ONE (15:34)
[2019-03-19 23:41] LABS: Hematocrit 21.5 % (36.0-45.0)
[2019-03-20] MEDS: NA CHLORIDE 0.9% 1,000 ML IV SCH ×3 (00:37→20:20)
[2019-03-20] MEDS: HYDROMORPHONE HCL 2 MG/ML inj IV PRN ×4 (04:00→22:23)
[2019-03-20] MEDS: HYDROCODONE/APAP 10/325 TAB PO PRN ×3 (08:00→20:18)
[2019-03-20] MEDS: MULTIVITAMIN TAB PO SCH (08:01)
[2019-03-20] MEDS: HYDROXYUREA 500 MG CAP PO SCH ×3 (08:01→20:20)
[2019-03-20] MEDS: GABAPENTIN 300 MG CAP PO SCH ×5 (08:01→20:19)
[2019-03-20] MEDS: levETIRAcetam 500 MG TAB PO SCH ×2 (08:01→20:20)
[2019-03-20] MEDS: FAMOTIDINE 20 MG TAB PO SCH ×2 (08:04→20:19)
[2019-03-20] MEDS: PROMETHAZINE 25 MG/ML VIAL IV PRN ×4 (08:31→22:23)
--- NOTE | 2019-03-20 13:16 | P.PN ---
Subjective Date of Service: 03/20/19 Primary Care Provider: Dr. Guaman Chief Complaint: Acute body pain Patient seen and examined at bedside. No family at bedside. Chart reviewed and case discussed with nursing staff. Continues to complain of significant pain, generalized but seen talking and joking with family members. Seen to be complaining of pain, moaning in pain and no family members around or when asked how pain is. She is status post 2 unit PRBC, hemoglobin stable after. No acute events noted overnight Patient refusing any other medication except for pain medications. Review of Systems 10-point ROS is otherwise unremarkable Physical Examination - Vital Signs Temperature: 97.4 F Blood Pressure: 123/75 Pulse: 91 Respirations: 18 Pulse Ox (%): 100 - Physical Exam General: Alert, In no apparent distress, Oriented x3 HEENT: Atraumatic, PERRLA, EOMI Neck: Supple, JVD not distended Respiratory: Clear to auscultation bilaterally, Normal air movement Cardiovascular: Regular rate/rhythm, Normal S1 S2 Gastrointestinal: Normal bowel sounds, No tenderness Musculoskeletal: No tenderness Integumentary: No rashes Neurological: Normal speech, Normal tone, Normal affect Lymphatics: No axilla or inguinal lymphadenopathy Assessment And Plan - Current Problems (Diagnosis) (1) Sickle cell crisis Onset Date: 09/06/15 Current Visit: No Status: Acute Plan: The patient states that she continues to have significant amount of pain. Patient seen to be joking/talking without any problems with members, tolerating a regular diet. We will continue her dose of Dilaudid to 2 mg but with increase interval to q.6h. -Continue with IV fluid hydration. -will continue to monitor pain, along with vital signs. We will reduce pain medications if vital signs/breathing changes. -risks of pain medication explained to patient. 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 -hemoglobin stable after 2 units PRBC -Will continue to monitor (3) Anxiety Onset Date: 03/07/17 Current Visit: No Status: Chronic Plan: Stable -Continue current medications as needed. (4) CAD (coronary artery disease) Onset Date: 03/07/17 Current Visit: No Status: Chronic Plan: Stable Qualifiers: Coronary Disease-Associated Artery/Lesion type: [place] artery [place] vs. transplanted heart: [place] heart Associated angina: without angina Qualified Code(s): I25.10 - Atherosclerotic heart disease of [place] coronary artery without angina pectoris (5) Chronic pain disorder Onset Date: 03/07/17 Current Visit: No Status: Chronic Plan: Continue with the current gabapentin [place]. -recommended patient would benefit from outpatient pain management physician follow up for continued pain management. -provided 's information and encouraged patient to call for appointment. (6) Seizure disorder Onset Date: 03/07/17 Current Visit: No Status: Chronic Plan: Stable. -Continue Keppra (7) Hypertension Current Visit: Yes Status: Acute Plan: Stable. -continue current medication Qualifiers: Hypertension type: essential hypertension Qualified Code(s): I10 - Essential (primary) hypertension - Plan DVT prophylaxis: SCDs GI prophylaxis: None Diet: Regular Disposition: Continue pain control. Anticipate discharge home next 24 hr. Discharge Plan: Home Plan to discharge in: 24 Hours
[2019-03-21] MEDS: NA CHLORIDE 0.9% 1,000 ML IV SCH (02:26)
[2019-03-21] MEDS: PROMETHAZINE 25 MG/ML VIAL IV PRN (04:16)
[2019-03-21] MEDS: HYDROMORPHONE HCL 2 MG/ML inj IV PRN (04:19)
[2019-03-21 04:57] VITALS: O2SAT 97
[2019-03-21 06:00] LABS: Absolute Lymphocytes (CBC) 5.1 K/uL (0.7-4.9); Basophils % 1.9 % (0-1.3); Hematocrit 21.8 % (36.0-45.0); Lymphocytes % 27.9 % (15.3-44.8); MPV 9.6 fL (7.6-11.3); RBC Red Blood Cell Count 2.12 M/uL (3.86-4.86)
[2019-03-21 06:23] LABS: ALT/SGPT 98 U/L (12-78); AST/SGOT 191 U/L (15-37); Albumin 3.1 g/dL (3.4-5.0); Alkaline Phosphatase 226 U/L (45-117); BUN Blood Urea Nitrogen 8 mg/dL (7-18); Bicarbonate 32 mmol/L (21-32); Bilirubin Total 3.2 mg/dL (0.2-1.0); Glucose Level 89 mg/dL (74-106); Potassium 4.2 mmol/L (3.5-5.1); Protein, Total 8.4 g/dL (6.4-8.2); Sodium Level 140 mmol/L (136-145)
[2019-03-21] MEDS: HYDROXYUREA 500 MG CAP PO SCH (07:58)
[2019-03-21] MEDS: MULTIVITAMIN TAB PO SCH (07:58)
[2019-03-21] MEDS: levETIRAcetam 500 MG TAB PO SCH (07:58)
[2019-03-21] MEDS: FAMOTIDINE 20 MG TAB PO SCH (09:40)
[2019-03-21] MEDS: GABAPENTIN 300 MG CAP PO SCH (09:40)
[2019-03-21 09:44] VITALS: BP 111/62; TEMP 98.3
[2019-03-21] MEDS ORDERED: PROMETHAZINE 25 MG TABLET PO PRN (10:12)
[2019-03-21] MEDS ORDERED: HYDROMORPHONE HCL 1 MG/ML INJ IV ONE (10:31)
[2019-03-21] MEDS ORDERED: HEPARIN 500 UNIT/5 ML SYR IV PRN (11:48)
--- NOTE | 2019-03-21 19:02 | P.DS ---
Admission Date: 03/18/19 Discharge Date: 03/21/19 Primary Care Provider: Dr. 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 transplanted heart: [place] heart Associated angina: without angina Qualified Code(s): I25.10 - Atherosclerotic heart disease of [place] coronary artery without angina pectoris (5) Chronic pain disorder Onset Date: 03/07/17 Status: Chronic (6) Seizure disorder Onset Date: 03/07/17 Status: Chronic (7) Hypertension Status: Acute Qualifiers: Hypertension type: essential hypertension Qualified Code(s): I10 - Essential (primary) hypertension Brief History of Present Illness: 39-year-old female presented to the emergency room with acute generalized pain. Patient with history of sickle cell disease, hypertension and CAD. Patient well-known to hospitalist service for recurrent admissions for sickle cell crisis. In the ER patient was evaluated. She reported nonspecific pain throughout her body. Patient required multiple doses of IV pain medication, antinausea medication and anti anxiety medication. White count 17.1, hemoglobin 7.3. Sodium 138, potassium 4.4, creatinine within normal range. Urinalysis negative. test negative. Chest x-ray negative. Absolute retic count 0.48 with a percent retic count of 23. Patient required hospitalization further monitor and address. When I saw the patient in the ER, she appeared comfortable. Pain under control. Hospital Course: Patient was admitted for pain crisis with sickle cell disease. She was started on IV hydration. She was provided pain control with PO medications first but as pain was not controlled she was also provided IV pain medications. It should be noted that patient would refuse any other medication, including for seizure and hydroxyurea. She would only take her IV pain medications. She was also noted to be joking/talking/animated with family members but when asked about pain or if nursing staff went into room, she would ask for IV pain medications. She did receive 2 units PRBCs and her hemoglobin was stable prior to discharge. She was recommended to follow up with outpatient pain management physician follow up for continued pain management. She was also provided 's information and was encouraged to call for appointment. She otherwise remained stable throughout the stay. Her treatment plan was explained to her and all questions were answered. She verbalized understanding. She was then discharged home in a safe and stable manner. Vital Signs/Physical Exam: Temp Pulse Resp BP Pulse Ox 98.3 F 97 H 18 111/62 97 03/21/19 08:00 03/21/19 08:00 03/21/19 08:00 03/21/19 08:00 03/21/19 08:00 General: Alert, In no apparent distress HEENT: Atraumatic, PERRLA, EOMI Neck: Supple, JVD not distended Respiratory: Clear to auscultation bilaterally, Normal air movement Cardiovascular: Regular rate/rhythm, Normal S1 S2 Gastrointestinal: Normal bowel sounds, No tenderness Musculoskeletal: No tenderness Integumentary: No rashes Neurological: Normal speech, Normal tone, Normal affect Lymphatics: No axilla or inguinal lymphadenopathy Laboratory Data at Discharge: WBC 18.4 K/uL (4.3-10.9) H 03/21/19 04:15 Hgb 7.4 g/dL (12.0-15.0) L* 03/21/19 04:15 Hct 21.8 % (36.0-45.0) L 03/21/19 04:15 Plt Count 174 K/uL (152-406) 03/21/19 04:15 Sodium 140 mmol/L (136-145) 03/21/19 04:15 Potassium 4.2 mmol/L (3.5-5.1) 03/21/19 04:15 BUN 8 mg/dL (7-18) 03/21/19 04:15 Creatinine 0.51 mg/dL (0.55-1.3) L 03/21/19 04:15 Glucose 89 mg/dL (74-106) 03/21/19 04:15 Magnesium 1.9 mg/dL (1.8-2.4) 03/19/19 05:00 Total Bilirubin 3.2 mg/dL (0.2-1.0) H 03/21/19 04:15 AST 191 U/L (15-37) H 03/21/19 04:15 ALT 98 U/L (12-78) H 03/21/19 04:15 Alkaline Phosphatase 226 U/L (45-117) H 03/21/19 04:15 Home Medications: ALPRAZolam [Xanax*] 2 mg PO TID PRN 03/07/17 Hydrocodone 10/APAP 325 [[place] 10/325*] 1 tab PO Q4H PRN 03/07/17 Hydroxyurea [Hydrea*] 500 mg PO TID 03/07/17 Promethazine HCl 25 mg PO Q4H PRN 03/07/17 hydrOXYzine HCl [Atarax] 50 mg PO BID PRN 03/07/17 levETIRAcetam [Keppra*] 250 mg PO TID 03/07/17 Pantoprazole Sodium [Protonix] 40 mg PO DAILY #30 tablet. 09/15/18 Gabapentin 1 cap PO TID 03/16/19 Patient Discharge Instructions: Please follow up with your nuclear engineering technician within the next 1 week. Please follow up with pain management as we have discussed. Diet: AHA Activity: Ad beata Followup: Sanya Lopez DO [ACTIVE - CAN ADMIT] - 1-2 Weeks Time spent managing pt's care (in minutes): 55
== END 2019-03-21 12:23 | disposition home or self-care (01) | DRG 812 ==
LOC: ER 23:33 → 2ND 03-16 02:22 → OBSVTOIN 03-18 05:54
PROVIDERS: ADMIT Family Medicine; ATTEND Family Medicine
PROC: 30233N1 Transfusion of Nonautologous Red Blood Cells into Peripheral Vein, Percutaneous Approach (ICD-10-PCS; principal; 2019-03-17)
DX: D57.00 Hb-SS disease with crisis, unspecified (principal); I10 Essential (primary) hypertension; I25.10 Atherosclerotic heart disease of native coronary artery without angina pectoris; G40.909 Epilepsy, unspecified, not intractable, without status epilepticus; F41.1 Generalized anxiety disorder; Z88.5 Allergy status to narcotic agent
CPT/HCPCS: 36415; 36430; 71045; 80048; 80053; 81003; 81015; 81025; 83735; 85014; 85018; 85025; 85044; 86850; 86870; 86900; 86901; 86922; 96361; 96374; 96375; 97116; 97161; 97167; 97530; 99285; J1170; J1642; J1940; J2550; J3475; J7030; P9016

== ENCOUNTER 2019-04-12 08:11 | Inpatient (IN) | payer OTHER ==
--- OUTSIDE RECORDS SUMMARY | 2019-04-12 08:13 | XMS REPORT | Clinical Summary ---
:1980 Author Organization [facility] Address [address] [place] [address] Care Team Providers Name Role Phone Kwesi Guaman MD Primary Care Provider Unavailable Chavo Pate Unavailable Allergies Active Allergy Reactions Severity Noted Date Comments Morphine Other (See Comments) 11/27/2013 seizures Metoclopramide Hcl 12/30/2018 Butorphanol Tartrate Other (See Comments) 11/27/2013 seizures Smt-Aa-Dpp-Atavfzox-Grmei-Pnkd 10/01/2014 seizure Ketorolac Other (See Comments) 11/27/2013 [...] Oncology Kwesi Guaman 10/06/2018 MD Justin after 04/11/2018 Family History Medical History Relation Name Comments [...] PROCEDURE - 10/14/2018 11:00 ENDOSCOPY SCAN AM TABLE ATTENDANT HEMOGLOBIN Routine 10/06/2018 10:59 Results for this AM TABLE ATTENDANT procedure are in the results section. VENOUS DOPPLER LEG, Routine 10/04/2018 3:00 Results for this RIGHT PM TABLE ATTENDANT procedure are in the results section. (CELLAVISION MANUAL Routine 10/04/2018 5:07 Results for this DIFF) AM TABLE ATTENDANT procedure are in the results section. CBC W/PLT COUNT & AUTO Routine 10/04/2018 5:07 Results for this DIFFERENTIAL AM TABLE ATTENDANT procedure are in the results section. CBC W/PLT COUNT & AUTO Routine 10/04/2018 5:07 Results for this DIFFERENTIAL AM TABLE ATTENDANT procedure are in the results section. BASIC METABOLIC PANEL Routine 10/04/2018 5:07 Results for this (7) AM TABLE ATTENDANT procedure are in the results section. (CELLAVISION MANUAL Routine 10/03/2018 6:39 Results for this DIFF) AM TABLE ATTENDANT procedure are in the results section. CBC W/PLT COUNT & AUTO Routine 10/03/2018 6:39 Results for this DIFFERENTIAL AM TABLE ATTENDANT procedure are in the results section. CBC W/PLT COUNT & AUTO Routine 10/03/2018 6:39 Results for this DIFFERENTIAL AM TABLE ATTENDANT procedure are in the results section. BASIC METABOLIC PANEL Routine 10/03/2018 6:39 Results for this (7) AM TABLE ATTENDANT procedure are in the results section. (CELLAVISION MANUAL Routine 10/02/2018 5:51 Results for this DIFF) AM TABLE ATTENDANT procedure are in the results section. CBC W/PLT COUNT & AUTO Routine 10/02/2018 5:51 Results for this DIFFERENTIAL AM TABLE ATTENDANT procedure are in the results section. BASIC METABOLIC PANEL Routine 10/02/2018 5:51 Results for this (7) AM TABLE ATTENDANT procedure are in the results section. CBC W/PLT COUNT & AUTO Routine 10/02/2018 5:51 Results for this DIFFERENTIAL AM TABLE ATTENDANT procedure are in the results section. FERRITIN Routine 10/02/2018 5:51 Results for this AM TABLE ATTENDANT procedure are in the results section. TRANSFUSION SERVICE 09/30/2018 6:00 REPORT - SCAN PM TABLE ATTENDANT (CELLAVISION MANUAL Routine 09/30/2018 4:16 Results for this DIFF) AM TABLE ATTENDANT procedure are in the results section. CBC W/PLT COUNT & AUTO Routine 09/30/2018 4:16 Results for this DIFFERENTIAL AM TABLE ATTENDANT procedure are in the results section. COMPREHENSIVE METABOLIC Routine 09/30/2018 4:16 Results for this PANEL AM TABLE ATTENDANT procedure are in the results section. CBC W/PLT COUNT & AUTO Routine 09/30/2018 4:16 Results for this DIFFERENTIAL AM TABLE ATTENDANT procedure are in the results section. HEPATIC FUNCTION PANEL Routine 09/30/2018 4:16 Results for this AM TABLE ATTENDANT procedure are in the results section. PREPARE LEUKO-REDUCED Routine 09/29/2018 11:54 Results for this RBC PM TABLE ATTENDANT procedure are in the results section. TRANSFUSION SERVICE 09/29/2018 6:00 REPORT - SCAN PM TABLE ATTENDANT (CELLAVISION MANUAL Routine 09/29/2018 4:17 Results for this DIFF) AM TABLE ATTENDANT procedure are in the results section. CBC W/PLT COUNT & AUTO Routine 09/29/2018 4:17 Results for this DIFFERENTIAL AM TABLE ATTENDANT procedure are in the results section. CBC W/PLT COUNT & AUTO Routine 09/29/2018 4:17 Results for this DIFFERENTIAL AM TABLE ATTENDANT procedure are in the results section. HEPATIC FUNCTION PANEL Routine 09/29/2018 4:17 Results for this AM TABLE ATTENDANT procedure are in the results section. BASIC METABOLIC PANEL Routine 09/29/2018 4:17 Results for this (7) AM TABLE ATTENDANT procedure are in the results section. TRANSFUSE LEUKO-REDUCED Routine 09/29/2018 12:06 RED BLOOD CELLS AM TABLE ATTENDANT TRANSFUSE LEUKO-REDUCED Routine 09/28/2018 7:20 RED BLOOD CELLS PM TABLE ATTENDANT ANTIBODY IDENTIFICATION Routine 09/28/2018 10:52 Results for this AM TABLE ATTENDANT procedure are in the results section. TYPE AND SCREEN, Routine 09/28/2018 4:31 Results for this AUTOMATED AM TABLE ATTENDANT procedure are in the results section. HEPATIC FUNCTION PANEL Routine 09/28/2018 4:31 Results for this AM TABLE ATTENDANT procedure are in the results section. BASIC METABOLIC PANEL Routine 09/28/2018 4:31 Results for this (7) AM TABLE ATTENDANT procedure are in the results section. (CELLAVISION MANUAL Routine 09/28/2018 12:10 Results for this DIFF) AM TABLE ATTENDANT procedure are in the results section. CBC W/PLT COUNT & AUTO Routine 09/28/2018 12:10 Results for this DIFFERENTIAL AM TABLE ATTENDANT procedure are in the results section. CBC W/PLT COUNT & AUTO Routine 09/28/2018 12:10 Results for this DIFFERENTIAL AM TABLE ATTENDANT procedure are in the results section. 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 Narrative Performed At CT chest for pulmonary embolus (01/08/2019 9:42 AM CDT) Specimen Narrative Performed At FINAL REPORT [employer] [facility] INDICATION: Acute chest pain. COMPARISON: Chest [...] MD Report Verified Date/Time:01/08/2019 09:54:01 Reading Location: [facility] C013Y CT Body Reading Room Procedure [...] Report Verified Date/Time: 01/08/2019 09:54:01 Reading Location: [facility] B1 C013Y CT Body Reading Room Performing Organization Address City/State/Zipcode Phone Number [facility] Troponin I (01/08/2019 1:04 AM CDT)Only the most recent of2 resultswithin the time period is included. Troponin I <0.01 0.00 - 0.03 ng/mL [facility] Specimen Blood Narrative Performed At Troponin I (TnI) levels must be interpreted [facility] in the context of the presenting symptoms [...] disease, and persistent tachyarrhythmia. Performing Organization Address City[facility] Phone Number [address] [address] [phone] CENTER Creatine Kinase (CK) (01/08/2019 1:04 AM CDT)Only the most recent of2 resultswithin the time period is included. Total CK 7 (L) 29 - 200 U/L [facility] Specimen Blood Performing Organization Address City/State/Zipcode Phone Number [facility] [address] [place] [phone] [place] ECG 12 lead (01/07/2019 6:28 PM CDT) Specimen Narrative Performed At Ventricular Rate 99 BPM GE MUSE Atrial Rate 99 BPM P-R Interval 172 ms QRS Duration 80 ms Q-T Interval 372 ms QTC Calculation(Bazett) 477 ms P Stewart 46 degrees R Stewart 17 degrees T Stewart 40 degrees Sinus rhythm Normal ECG When [...] 372 ms QTC Calculation(Bazett) 477 ms P Stewart 46 degrees R Stewart 17 degrees T Stewart 40 degrees Sinus rhythm Normal ECG When [...] MD Report Verified Date/Time:01/07/2019 08:40:21 Reading Location: [facility] Radiology Reading Room Procedure Note Interface, External [...] Report Verified Date/Time: 01/07/2019 08:40:21 Reading Location: [facility] Radiology Reading Room Performing Organization Address City/State/Zipcode Phone Number [facility] RIS Manual Differential (01/06/2019 3:57 AM CDT)Only the most recent of10 resultswithin the time period is included. % Neutros 57 % [facility] % Lymphs 19 % [facility] % Monos 18 % [facility] % Eos 6 % [facility] # Neutros 11.51 (H) 1.56 - 6.13 K/ul [facility] # Lymphs 3.84 (H) 1.18 - 3.74 K/ul [facility] # Monos 3.64 (H) 0.24 - 0.36 K/uL [facility] # Eos 1.21 (H) 0.04 - 0.36 K/uL [facility] Total Counted 100 [facility] nRBC (manual) 9 (H) 0 - 0 /100 WBC [facility] Smudge Cells Present [facility] Giant Platelet Present [facility] Polychromasia 2+ moderate [facility] Anisocytosis 2+ moderate [facility] Macrocytes 2+ moderate [facility] Sickle Cells 1+ few [facility] Artifact Present [facility] Platelet Conc Adequate [facility] Specimen Blood Narrative Performed At Received comment: [facility] User comments: Slide comments: Performing Organization Address City/State/Zipcode Phone Number [facility] [address] [place] [address] CENTER CBC with platelet count + automated diff (01/06/2019 3:57 AM CDT)Only the most recent of10 resultswithin the time period is included. WBC 20.2 (H) 3.5 - 10.5 K/L [facility] RBC 2.32 (L) 3.93 - 5.22 M/L [facility] Hemoglobin 7.9 (L) 11.2 - 15.7 GM/DL [facility] Hematocrit 24.5 (L) 34.1 - 44.9 % [facility] MCV 105.6 (H) 79.4 - 94.8 fL [facility] MCH 34.1 (H) 25.6 - 32.2 pg [facility] MCHC 32.2 32.2 - 35.5 GM/DL [facility] RDW 22.3 (H) 11.7 - 14.4 % [facility] Platelets 219 150 - 450 K/CU MM [facility] MPV 11.6 9.4 - 12.3 fL [facility] nRBC 7 (H) 0 - 0 /100 WBC [facility] Specimen Blood Performing Organization Address City/State/Zipcode Phone Number [facility] [address] [place] [address] [phone] CENTER Basic Metabolic Panel (01/06/2019 3:57 AM CDT)Only the most recent of10 resultswithin the time period is included. Sodium 140 136 - 145 meq/L [facility] Potassium 4.2 3.5 - 5.1 meq/L [facility] Chloride 96 (L) 98 - 107 meq/L [facility] CO2 34 (H) 22 - 29 meq/L [facility] BUN 10 7 - 21 mg/dL [facility] Creatinine 0.58 0.57 - 1.25 mg/dL [facility] Glucose 95 70 - 105 mg/dL [facility] Calcium 9.6 8.4 - 10.2 mg/dL [facility] EGFR 140Comment: ESTIMATED GFR IS mL/min/1.73 sq m [facility] NOT ACCURATE [facility] CLEARANCE IN PREDICTING GLOMERULAR FILTRATION RATE. ESTIMATED GFR IS NOT APPLICABLE FOR DIALYSIS PATIENTS. Specimen Blood Narrative Performed At Specimen slightly icteric [facility] Performing Organization Address City/[facility]/Zipcode Phone Number [facility] MEDICAL [address] [place] [address] CENTER TRANSFUSION SERVICE REPORT - SCAN (01/02/2019 5:51 PM CDT)Only the most recent of4 resultswithin the time period is included. Narrative Performed At Prepare Leuko-Red RBC (01/01/2019 11:54 PM CDT)Only the most recent of2 resultswithin the time period is included. Unit ABO O Pos [place] [place] UNIT NUMBER [id number] [place] Status WORK IN PROGRESS [place] Blood Bank Product RED BLOOD CELLS [place] PRODUCT CODE [id number] [facility] Unit ABO O Pos [place] UNIT NUMBER [id number] [place] Status WORK IN PROGRESS [facility] [place] Blood Bank Product RED BLOOD CELLS [place] PRODUCT CODE [id number] [place] CROSSMATCH COMPATIBLE [facility] Unit ABO O Pos [place] UNIT NUMBER [id number] [facility] Status TX_TIMEINCHART [facility] [place] Blood Bank Product RED BLOOD CELLS [place] PRODUCT CODE [id number] [place] CROSSMATCH COMPATIBLE [place] Unit ABO O Pos [place] UNIT NUMBER [id number] [place] Status TX_TIMEINCHART [facility] Blood Bank Product RED BLOOD CELLS [place] PRODUCT CODE [id number] [place] Specimen Other Performing Organization Address City/[facility]/Zipcode Phone Number [facility] [place] CBC with platelet count + manual diff (01/01/2019 8:12 AM CDT) WBC 22.9 (H) 3.5 - 10.5 K/L [facility] RBC 2.28 (L) 3.93 - 5.22 M/L [facility] Hemoglobin 7.7 (L) 11.2 - 15.7 GM/DL [facility] Hematocrit 23.2 (L) 34.1 - 44.9 % [facility] MCV 101.8 (H)Comment: Discordant 79.4 - 94.8 fL [facility] results compared to previous MEDICAL CENTER result; clinical correlation required. MCH 33.8 (H) 25.6 - 32.2 pg [facility] MCHC 33.2 32.2 - 35.5 GM/DL [facility] RDW 23.3 (H) 11.7 - 14.4 % [facility] Platelets 251 150 - 450 K/CU MM [facility] MPV 10.7 9.4 - 12.3 fL [facility] nRBC 52 (H) 0 - 0 /100 WBC [facility] Specimen Blood Performing Organization Address City/[facility] Phone Number [facility] [address] [place], [place] [phone] CENTER Transfuse Leuko-Red RBC (12/31/2018 8:13 PM [...] Judah Ortez M.D. Specimen Performing Organization Address City[facility] Phone Number [place] Hemoglobin and hematocrit (12/31/2018 11:38 AM CDT) Hemoglobin 5.5 (LL) 11.2 - 15.7 GM/DL [facility] Hematocrit 17.1 (L) 34.1 - 44.9 % [facility] Specimen Blood Performing Organization Address City[facility] Phone Number [facility] [address] [place] [phone] CENTER Type and screen, automated (12/31/2018 7:49 AM CDT)Only the most recent of2 resultswithin the time period is included. ABO/RH AUTOMATED (BEAKER) O POSITIVE [facility] Ab Scrn POSITIVE [facility] Specimen Blood Performing Organization Address [facility] Phone Number [address] [phone] EKG-SCANNED (10/14/2018 11:00 AM TABLE ATTENDANT) Narrative Performed At Hemoglobin (10/06/2018 10:59 AM TABLE ATTENDANT) Hemoglobin 7.1 (L) 11.2 - 15.7 GM/DL [facility] Specimen Blood Performing Organization Address [facility] Phone Number [address] [phone] CENTER Venous doppler leg, right (10/04/2018 3:00 PM TABLE ATTENDANT) Ejection Fraction [facility] ECHO HEARTLAB MKCKESSON CPACS Specimen Impressions Performed At Right Impression [facility] ECHO HEARTLAB MKCKESSON CPACS 1. There is [...] Extremities DVT Study SLE ECHO HEARTLAB [facility]CKESSON [facility] Demographics Patient NameSMITEduardo, RODRIGODate of Study 10/04/2018 DIANA Age 38 Visit [id number] GenderFemale Date of 1980 Referring [facility] [id number] Physician Supervisor Warping Department Physician RITO Manzanares Procedure Type of Study: Veins: Lower Extremities DVT Study, VENOUS DOPPLER LEG, RIGHT. Indications for Study:Pain. Patient Status:Routine. Study Location:Vascular Lab. Technical Quality:Adequate visualization. Risk Factors History of Disease + + + + !Diagnosis !Date !Comments ! + + + + !Stroke! ! ! + + + + Procedure Note Interface, External Ris In - 10/05/2018 10:51 AM TABLE ATTENDANT [facility] - Lower Extremities DVT Study Demographics Patient Name RODRIGO BERG Date of Study 10/04/2018 DIANA Age 38 Visit Number [id number] Gender Female Accession Number [id number] Date of 1980 Referring Neal Lezama MD Room Number [id number] Physician Supervisor Warping Department Colt Zamudio Interpreting Physician RITO Mattson Procedure [...] are measured in cm Performing Organization Address [facility] Phone Number [facility] Ferritin (10/02/2018 5:51 AM TABLE ATTENDANT) Ferritin 26,952 (H) 5 - 275 ng/mL [facility] Specimen Blood Performing Organization Address City/[facility]/Zipcode Phone Number [facility] [address] [place] [address] CENTER Hepatic function panel (09/30/2018 4:16 AM TABLE ATTENDANT)Only the most recent of3 resultswithin the time period is included. Protein, Total 7.9 6.0 - 8.3 gm/dL [facility] Albumin 3.2 (L) 3.5 - 5.0 g/dL [facility] Total Bilirubin 2.5 (H) 0.2 - 1.2 mg/dL [facility] Bilirubin, Direct 1.2 (H) 0.1 - 0.5 mg/dL [facility] Alkaline Phosphatase 183 (H) 40 - 150 U/L [facility] AST 129 (H) 5 - 34 U/L [facility] ALT 72 (H) 6 - 55 U/L [facility] Specimen Blood Performing Organization Address City/State/Zipcode Phone Number [facility] [address] [place], [place] [phone] [place] Comprehensive metabolic panel (09/30/2018 4:16 AM TABLE ATTENDANT) Protein, Total 7.9 6.0 - 8.3 gm/dL [facility] Albumin 3.2 (L) 3.5 - 5.0 g/dL [facility] Alkaline Phosphatase 183 (H) 40 - 150 U/L [facility] Total Bilirubin 2.5 (H) 0.2 - 1.2 mg/dL [facility] Sodium 141 136 - 145 meq/L [facility] Potassium 3.8 3.5 - 5.1 meq/L [facility] Chloride 104 98 - 107 meq/L [facility] CO2 28 22 - 29 meq/L [facility] BUN 12 7 - 21 mg/dL [facility] Creatinine 0.69 0.57 - 1.25 mg/dL [facility] Glucose 97 70 - 105 mg/dL [facility] Calcium 8.4 8.4 - 10.2 mg/dL [facility] AST 129 (H) 5 - 34 U/L [facility] ALT 72 (H) 6 - 55 U/L [facility] EGFR 115Comment: ESTIMATED mL/min/1.73 sq m [facility] GFR IS NOT ACCURATE [facility] CREATININE CLEARANCE IN PREDICTING GLOMERULAR FILTRATION RATE. ESTIMATED GFR IS NOT APPLICABLE FOR DIALYSIS PATIENTS. Specimen Blood Performing Organization Address City/State/Zipcode Phone Number [facility] [address] [place], [place] [phone] CENTER after 04/11/2018 Insurance Payer Benefit Plan / Subscriber ID Type Phone Address Group [facility] xxxxxxxxx MEDICARE MGD CARE HMO MEDICAID - MEDICAID [facility] xxxxxxxxx Medicaid Contracted MGD CARE PLAN Advance Directives For more information, please contact:[place] [phone] [place], [place] [phone] Code Status Date Activated Date Inactivated Comments [...]
--- OUTSIDE RECORDS SUMMARY | 2019-04-12 08:14 | XMS REPORT | Summary of Care ---
:1980 Author Organization [facility] Address [address] [place] [address] Care Team Providers Name Role Phone Kwesi Guaman Unavailable Unavailable Jayson Jay MD Primary Care Provider Reason for Referral (Routine) Status Reason Specialty Diagnoses / Procedures Referred By Referred To Contact Contact New Request Diagnoses LANE (dyspnea on exertion) Essential hypertension Hb-SS disease with crisis History of CVA (cerebrovascular accident) Uncontrolled hypertension Rose, Sendil Procedures CAROTID DUPLEX BILATERAL BY VASCULAR KILEY Lynn MD [address] [place] [address] (Routine) Status Reason Specialty Diagnoses / Procedures Referred By Contact Referred To Contact Closed Cardiology Diagnoses Essential hypertension Rose, Sendil Procedures CAROTID DUPLEX BILATERAL BY VASCULAR KILEY Lynn MD [address] [place] [address] [place] [address] Reason for Visit Reason Comments Follow-up 6 weeks Encounter Details Date Type Department Care Team Description 03/10/2019 Office Visit [facility] Rose, Sendil Essential hypertension ( Primary Dx); Cardiology- Kenya Lynn MD LANE (dyspnea on exertion); [address] [place] [address] [address] Hb-SS disease with crisis; Drive, [address] History of CVA (cerebrovascular accident); [place], [place] Uncontrolled hypertension [id number] Allergies Active Allergy Reactions Severity Noted Date Comments Morphine Unknown - See comments 05/30/2015 Morphine Other - See comments 11/22/2015 Metoclopramide Hcl Other - See comments 07/02/2017 Seizures Butorphanol Tartrate Other - See comments 05/30/2015 Seizures Butorphanol Tartrate Other - See comments 11/29/2015 seizurs Ketorolac Tromethamine Other - See comments 05/30/2015 Seizures Ketorolac Tromethamine Other - See comments 11/22/2015 Seizure Tramadol Other - See comments 11/22/2015 Trazodone Unknown - See comments 05/30/2015 Trazodone Other - See comments 11/22/2015 Ondansetron Hcl (Pf) Unknown - See comments 05/30/2015 documented as of this encounter (statuses as of 03/17/2019) Medications Medication Sig Dispensed Refills Start Date End Date Status triamcinolone 0 10/27/2015 Active acetonide (KENALOG) 0.1 % ointment proMETHazine 0 10/12/2015 Active (PHENERGAN) 25 mg tablet ibuprofen (MOTRIN) 600 0 10/12/2015 Active mg tablet HYDROcodone-acetaminop 0 11/10/2015 Active hen (NORCO) 10-325 mg tablet foLIC acid (FOLATE) 1 Take 1 mg by 0 Active mg tablet mouth. mirtazapine 45 mg Take 45 mg by 0 Active tablet mouth. albuterol 90 Inhale 2 Puffs 1 Inhaler 1 01/21/2019 Active mcg/actuation every 6 (six) inhalerIndications: hours as needed SOB (shortness of for Wheezing or breath) Shortness of Breath. amLODIPine 2.5 mg Take 1 tablet by 90 tablet 1 01/24/2019 Active tabletIndications: LANE mouth daily. (dyspnea on exertion), Essential hypertension benzonatate 200 mg Take 1 capsule by 30 capsule 0 01/31/2019 Active capsuleIndications: mouth 3 (three) Cough times daily as needed for Cough. documented as of this encounter (statuses as of 03/17/2019) Active Problems Problem Noted Date Obesity (BMI 30-39.9) 01/30/2019 Atypical chest pain 01/28/[address] (dyspnea on exertion) 01/27/2019 Sickle cell pain crisis 01/27/2019 History of acute myocardial infarction 07/08/2017 History of CVA (cerebrovascular accident) 07/08/2017 Anxiety Depression Hypertension Seizures Sickle cell anemia documented as of this encounter (statuses as of 03/17/2019) Resolved Problems Problem Noted Date Resolved Date Foot pain, right 11/29/2015 07/08/2017 documented as of this encounter (statuses as of 03/17/2019) Social History Tobacco Use Types Packs/Day Years Used Date Never Smoker Cigarettes Smokeless Tobacco: Never Used Alcohol Use Drinks/Week oz/Week Comments No 0 Standard drinks or equivalent 0.0 Sex Assigned at Date Recorded Not on file Job Start Date Occupation Industry Not on file Not on file Not on file Travel History Travel Start Travel End No recent travel history available. documented as of this encounter Last Filed Vital Signs Vital Sign Reading Time Taken Comments Blood Pressure 137/93 03/10/2019 1:49 PM CDT Pulse 77 03/10/2019 1:49 PM CDT Temperature - - Respiratory Rate 20 03/10/2019 1:47 PM CDT Oxygen Saturation 100% 03/10/2019 1:47 PM CDT Inhaled Oxygen Concentration - - Weight 77.2 kg (170 lb 4.8 oz) 03/10/2019 1:47 PM CDT Height 160 cm (5' 3") 03/10/2019 1:47 PM CDT Body Mass Index 30.17 03/10/2019 1:47 PM CDT documented in this encounter Progress Notes Rell Rose MD - 03/10/2019 2:00 PM CDT [facility] Cardiology Consult Note Patient: Brennon Duffy Date of : 1980 Primary Care Physician: Jayson Jay CHIEF COMPLAINT: Chief Complaint Patient presents with Follow-up 6 weeks History of Present Illness: Brennon Duffy is a 39 year old female presented to the clinic for follow up for LANE/atypical chest pain. History obtained talking to the patient and mother at this visit. Since the last OV, she was admitted in [facility] for sickle cell anemia/atypical chest pain. LANE NYHA Class II-III. Reports atypical chest pain at rest not worsening with exertion. History of SCD and multiple admission in [facility] for sickle cell crisis. [facility] records reviewed. No PND or orthopnea. No pedal edema. No exertional palpitations or palpitations at rest. No syncopalattacks. Risk factors: Hx of CVA with right sided deficits, History of ND noted in her chart (upon records review: noted to have elevated trop in 2015 & 2016: No stress test noted. Only RHC as below). 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 Has port a cath currently Cardiac records from [facility] records reviewed Echo 10/2017 Summary The left ventricle is chamber size [...] RA pressure by IVC dynamics 16-20mmHg . Right cath 11/2017 RA 11 mm Hg RV 35/7/13 mm Hg PA 40/17/28 mm Hg PCWP 12 mm Hg PA saturation 61% Arterial saturation 92% PVR 2.46 SHEN Impression: Pulmonary hypertension Previous Cardiac Studies: IMAGING - I personally reviewed, pertinent results as below: ECG 01/2019 Normal sinus rhythm with sinus arrhythmia Possible Left atrial enlargement Septal infarct age undetermined Abnormal ECG Echo 01/2019 Interpretation Summary A complete two-dimensional transthoracic echocardiogram was performed (2D, M- mode, Doppler and colorflow Doppler). There is no comparison study available. Left ventricular systolic function is normal. Diastolic function is normal. The right ventricle is normal in size and function. The left atrium is mildly dilated. There is mild mitral regurgitation. Right ventricular systolic pressure is elevated at 40-45 mmHg. There is mild to moderate tricuspid regurgitation. PAST MEDICAL HISTORY Past Medical History: Diagnosis Date Acute myocardial infarction Allergic rhinitis Anxiety Arthritis Depression Heart murmur Hypertension Irregular heartbeat Memory loss Migraines Seizures Sickle cell anemia Stroke Transfusion history Past Surgical History: Procedure Laterality Date BIOPSY/EXCISION, LYMPH NODE(S) SECTION CHOLECYSTECTOMY HYSTERECTOMY LINE(S) CLEARED FOR USE 5 SPLENECTOMY SURGICAL HISTORY OTHER (SHX) PORT-A-CATH Family History Problem Relation Age of Onset Hypertension Mother High cholesterol Mother Hypertension Father Heart Father Depression Father Allergies Father Cancer Paternal Aunt Heart Paternal Aunt Cancer Paternal Uncle Heart Paternal Uncle Cancer Paternal Grandfather SOCIAL HISTORY Social History Socioeconomic History Marital status: Spouse name: Not on file Number of children: Not on file Years of education: Not on file Highest education level: Not on file Occupational History Not on file Social Needs Financial resource strain: Not on file Food insecurity: Worry: Not on file Inability: Not on file Transportation needs: Medical: Not on file Non-medical: Not on file Tobacco Use Smoking status: Never Smoker Smokeless tobacco: Never Used Substance and Sexual Activity Alcohol use: No Alcohol/week: 0.0 oz Drug use: No Sexual activity: Not on file Lifestyle Physical activity: Days per week: Not on file Minutes per session: Not on file Stress: Not on file Relationships Social connections: Talks on phone: Not on file Gets together: Not on file Attends christianity service: Not on file Active member of club or organization: Not on file Attends meetings of clubs or organizations: Not on file Relationship status: Not on file Intimate partner violence: Fear of current or ex partner: Not on file Emotionally abused: Not on file Physically abused: Not on file Forced sexual activity: Not on file Other Topics Concern Not on file Social History Narrative Disabled due to sickle cell disease. ALLERGIES Allergies Allergen Reactions Morphine Unknown - See comments Morphine Other - See comments Reglan [Metoclopramide Hcl] Other - See comments Seizures Stadol [Butorphanol Tartrate] Other - See comments Seizures Stadol [Butorphanol Tartrate] Other - See comments seizurs Toradol [Ketorolac Tromethamine] Other - See comments Seizures Toradol [Ketorolac Tromethamine] Other - See comments Seizure Tramadol Other - See comments Trazodone Unknown - See comments Trazodone Other - See comments Zofran [Ondansetron Hcl (Pf)] Unknown - See comments MEDICATIONS Patient's Medications START taking these medications No medications on file CONTINUE taking these medications which have NOT CHANGED ALBUTEROL 90 MCG/ACTUATION INHALER Inhale 2 Puffs every 6 (six) hours as needed for Wheezing or Shortness of Breath. AMLODIPINE 2.5 MG TABLET Take 1 tablet by mouth daily. BENZONATATE 200 MG CAPSULE Take 1 capsule by mouth 3 (three) times daily as needed for Cough. FOLIC ACID (FOLATE) 1 MG TABLET Take 1 mg by mouth. HYDROCODONE-ACETAMINOPHEN (NORCO) 10-325 MG TABLET IBUPROFEN (MOTRIN) 600 MG TABLET MIRTAZAPINE 45 MG TABLET Take 45 mg by mouth. PROMETHAZINE (PHENERGAN) 25 MG TABLET TRIAMCINOLONE ACETONIDE (KENALOG) 0.1 % OINTMENT START taking Modified Medications as Prescribed No medications on file STOP taking these medications No medications on file REVIEW OF SYSTEMS: Comprehensive 10-system review was conducted and were negative except for what' s noted in the HPI. The following systems were reviewed: Constitutional, cardiovascular, respiratory, gastrointestinal, genitourinary, musculoskeletal, neurologic, psychiatric, endocrinological, and hematological. PHYSICAL EXAMINATION: Vitals: 03/10/19 1347 03/10/19 1349 BP: (!) 143/93 (!) 137/93 BP Location: Left arm Patient Position: Sitting BP CUFF SIZE: Adult Large Pulse: 76 77 Resp: 20 SpO2: 100% Weight: 170 lb 4.8 oz (77.2 kg) Height: 5' 3" (1.6 m) General: no apparent distress HEENT: normocephalic atraumatic Neck: supple, no lymphadenopathy, no bruits, no JVD Lungs: clear to auscultation bilaterally. No wheezes or rhonchi. No increased work of breathing. Cardio: Regular rate and rhythm, S1&S2 normal, no murmurs, rubs or gallops Abdomen: soft; non-tender; non-distended; normoactive bowel sounds. : not examined Rectal: not examined Extremities: no clubbing, cyanosis. Skin: no rashes, no visible lesions. Neuro: no gross focal deficits LABS - Reviewed pertinent labs as below: CBC BMP PT/INR WBC (10*3/L) Date Value 01/29/2019 19.70 (H) NA (mmol/L) Date Value 01/29/2019 144 No results found for: PT PLT (10*3/L) Date Value 01/29/2019 219 K (mmol/L) Date Value 01/29/2019 4.7 INR (no units) Date Value 01/27/2019 1.2 HGB (g/dL) Date Value 01/29/2019 7.9 (L) BUN (mg/dL) Date Value 01/29/2019 11 HCT (%) Date Value 01/29/2019 20.4 (L) CREATININE (mg/dL) Date Value 01/29/2019 0.54 LIPID PROFILE GLUCOSE (mg/dL) Date Value 01/29/2019 99 CHOL (mg/dL) Date Value 01/27/2019 189 TSH LDL CHOL (mg/dL) Date Value 01/27/2019 107 TSH (mIU/L) Date Value 01/27/2019 1.58 CARDIAC ENZYMES HDL (mg/dL) Date Value 01/27/2019 47 (L) CK (U/L) Date Value 01/27/2019 <20 (L) TRIG (mg/dL) Date Value 01/27/2019 175 (H) LFTs CK-MB (ng/mL) Date Value 05/30/2015 <0.22 AST(SGOT) (U/L) Date Value 01/29/2019 165 (H) TROPONIN I (ng/mL) Date Value 01/28/2019 0.010 ALT(SGPT) (U/L) Date Value 01/29/2019 99 (H) No results found for: BNP LDL CHOL (mg/dL) Date Value 01/27/2019 107 Recent Labs 01/28/19 0502 TROPNI 0.010 Recent Labs 01/27/19 1957 TRIG 175* ASSESSMENT/PLAN 1. Essential hypertension CAROTID DUPLEX BILATERAL BY VASCULAR LAB 2. LANE (dyspnea on exertion) 3. Hb-SS disease with crisis 4. History of CVA (cerebrovascular accident) 5. Uncontrolled hypertension Reviewed echo done in the hospital with her and her mom. Copy given. LANE NYHA Class II: Multifactorial etiology. Mainly non-cardiac. Diastolic function normal by echo Elevated PA pressure: better than before. Needs pulmonary and sleep evaluation. Sickle cell diease and anemia: as per PCP and hematology team. Prior history of CVA: unsure if it was related to sickle cell diease/crisis. Ok to start ASA 81 mg daily. Will plan for carotid USG. LDL is acceptable. Will hold off on starting statins. Hypertension: Elevated in the office. Recommend to increased Norvasc 2.5 mg BiD. Home BP log. Recommend BP goal < 130/80. If still elevated, then plan to increase Norvasc 5 mg BiD. Then, will consider adding BB or hydralazine based on the BP log. Follow up in 4 months Patient's diease process and its evaluation and treatment were discussed. We discussed each of for cardio vascular-related problems and discussed long-term goals and expectations for the each problem.I reviewed each of the cardiac medications in detail. Reviewed the medication with patient in detail recommended to continue taking the current medications without further changes other than changes mentioned above. Recommended goal BP < 130/80 consistently, LDL << 100. Recommended, explained and stressed the importance of healthy eating habits and exercises and lifestyle modifications Follow up as planned is predicated on symptoms stability and/or acceptable test results. Patient is urged to call in sooner should problems arise or if there is no improvement in cardiac symptoms. ER warning signs and symptoms explained and patient verbalized understanding. My diagnostic impression and treatment plans were discussed at length with the patient and her mother. All side effects as well as drug-drug interactions and risks discussed at length. Ample opportunity was offered and encouraged to ask questions during this visit and patient verbzalised statisfcationin the answers given. We reviewed the [place] [employer] recommendations for reduction of overall cardio vascular risk. The importance of monitoring the blood pressure carefully both at home on regular basis along with other physicians appointment was stressed in detail. In addition we discussed target LDL levels for optimal risk reduction. It was advised that to daily physical activity be performed with 30 minutes of sustained exercise for both cardio vascular fitness and improvement for generalized medical health and well-being. Thank you for allowing us to participate in the care of Brennon Duffy. If you have any questions or concerns please feel free to call our office at . I would be happy to be of further assistance for Brennon Duffy wellbeing. Jermaine Rose MD Operations Planner, Division of Cardiology [facility] documented in this encounter Plan of Treatment Date Type Specialty Care Team Description 03/28/2019 Office Visit Family Medicine Jayson Jay MD [address] [place] [address] [place] [address] 07/11/2019 Office Visit Cardiology Rell Rose MD [address] [place] [facility] [place] [id number] Health Maintenance Due Date Last Done Comments PNEUMOCOCCAL 0-64 YEARS COMBINED SERIES (1 of 3 - 1985 PCV13) DTaP,Tdap,and Td Vaccines (1 - Tdap) 1998 PAP SMEAR 2000 MAMMOGRAM 2019 INFLUENZA VACCINE 04/20/2019 documented as of this encounter Results Not on filedocumented in this encounter Visit Diagnoses Diagnosis Essential hypertension - Primary Unspecified essential hypertension LANE (dyspnea on exertion) Other dyspnea and respiratory abnormality Hb-SS disease with crisis History of CVA (cerebrovascular accident) Transient ischemic attack (TIA), and cerebral infarction without residual deficits Uncontrolled hypertension Unspecified essential hypertension documented in this encounter Insurance Payer Benefit Plan / Subscriber ID Effective Phone Address Type Group Dates [facility] [id number] 2017-Pres Medicare HEALTHCARE - HEALTHCARE ent Adv HMO MANAGED DUAL COMPLETE MEDICARE HMO [facility] MEDICAID OF xxxxxxxxx 2019-Pres [phone] Medicaid [place] ent [id number] [place] [address] documented as of this encounter
--- OUTSIDE RECORDS SUMMARY | 2019-04-12 08:14 | XMS REPORT | Continuity of Care Document ---
:1980 Author [facility] [employer] [employer] [place] Care Team Providers Name Role Phone [facility] Information [employer] Unavailable Unavailable Problems Problem Status Onset Classification Date Comments Source Date Reported SICKLE CELL CRISIS Active 09/08/[address] Final: 09/13/2014 [facility] Aplastic anemia Resolved Problem 09/13/2014 [facility] CVA - Resolved Problem 09/13/2014 [facility] Cerebrovascular [facility] accident Center Sickle cell anemia Resolved Problem 09/13/2014 [facility] TIA Resolved Problem 09/13/2014 [facility] HB-SS DISEASE W Active [facility] Medications Medication Details Route Status Patient Ordering Order Source Instructions Provider Date 12 HR Oxymorphone 30 mg=1 tab, Active [facility] Hydrochloride 30 PO, Q12H, 0 2014 [facility] MG Extended Refill(s) Center Release Tablet [Opana] Lovenox 40 mg, 0.4 mL, No Longer [facility] Route: SUB-Q, Active 2014 [facility] Drug form: INJ, Center trplH02H, Dosing Weight 70.591, kg, Start date: 09/10/14 19:00:00, Duration: 30 day, Stop date: 10/09/14 19:00:00Notes: (Same as: Lovenox) Promethazine 12.5 mg, 0.5 No Longer 09/10[facility] mL, Route: Active 2014 [facility] IVPB, Drug Center form: INJ, Q4H, Dosing Weight 70.591, kg, PRN Nausea & Vomiting, Start date: 09/10/14 17:52:00, Duration: 30 day, Stop date: 10/10/14 17:51:00Notes: Do not give IV push. (Same as: Phenergan) Hydromorphone 15 mg, 30 mL, No Longer [facility] Route: IV, Active 2014 [facility] Initial Loading Center Dose: 0.4mg, SIGNS CLEANER Dose: 0.2 mg, SIGNS CLEANER Lockout: 10 minutes, Continuous Basal Rate: 0 mg, 4 Hour Limit (In MG): 3, Drug Form: INJ, Continuous, Start date: 09/10/14 11:00:00, Duration: 30 day, Stop date: 10/10/14 10:...Notes: (Same as: Dilaudid) conc=0.5 mg/ml Hydromorphone SIGNS CLEANER Dose: ;Delay: ;Basal: Naloxone 0.04 mg, 0.1 [...] 09/09/14 3:43:00 Phenergan 12.5 mg, Route: Inactive [facility] IVPB, ONCE, 2014 Medical Dosing Weight Center [...] 23:41:00 Hydromorphone 2 mg, Route: No Longer [facility] IVP, ONCE, Active 2014 Medical Dosing Weight Center 70, kg, Priority: STAT, Start date: 09/08/14 23:41:00, Stop date: 09/08/14 23:41:00 Saline Flush 0.9% 10 mL, Route: No Longer [facility] IVP, Drug Form: Active 2014 Medical INJ, Dosing Center Weight 70, kg, PRN, PRN Line Flush, Start date: 09/08/14 23:41:00, Duration: 30 day, Stop date: 10/08/14 23:40:00Notes: Same as: BD Posiflush Sterile Allergies, Adverse Reactions, Alerts Substance Category Reaction Severity Reaction Status Date Comments Source type Reported morphine Assertion Drug Active [facility] Stadol Assertion Drug Active [facility] Toradol Assertion Drug Active [facility] traMADol Assertion Drug Active [facility] Zofran Assertion Drug Active [facility] [place] [facility] Immunizations No Data Provided for This Section Results Order Name Results Value Reference Date Interpretation Comments Source Range CHEM PANEL LDH 507 98 - 192 09/11 [facility] ELECTROLYTE AGAP 10.8 10.0 - 09/11 [facility] 20.0 [facility] ELECTROLYTE Calcium Lvl 8.4 8.5 - 10.5 09/11 [facility] ELECTROLYTE CO2 27 24 - 32 09/11 [facility] ELECTROLYTE Chloride Lvl 108 95 - 109 09/11 [facility] ELECTROLYTE eGFR 130 09/11 <sup>3</sup>R [facility] esult Medical Comment: The Center eGFR is [...] ELECTROLYTE BUN 4 7 - 22 09/11 [facility] ELECTROLYTE Glucose Lvl 82 70 - 99 09/11 <sup>6</sup>I [facility] nterpretive Medical Data: Adult Center reference range values reflect the clinical guidelines
of the [place] [employer]. ELECTROLYTE Sodium Lvl 142 135 - 145 09/11 [facility] ELECTROLYTE Creatinine 0.7 0.5 - 1.4 09/11 [facility] ELECTROLYTE Potassium 3.8 3.5 - 5.1 09/11 [facility] HEMATOLOGY Retic Auto 16.5 0.5 - 1.5 09/11 [facility] HEMATOLOGY RDW 25.5 11.5 - 09/11 [facility] [place] 14.5 /2014 [facility] HEMATOLOGY MPV 8.6 7.4 - 10.4 09/11 /2014 [facility] HEMATOLOGY Platelet 213 133 - 450 09/11 /2014 [facility] HEMATOLOGY Hct 19.8 36.0 - 09/11 [place] 48.0 /2014 [facility] HEMATOLOGY Hgb 6.7 12.0 - 09/11 <sup>9</sup>R [place] 16.0 /2014 formerly [facility] Medical Comment: Center Critical Result(s) called to Lexi Hendrix at 09/11/2014 03:23 by ORDAZ. Read back OK. HEMATOLOGY MCV 97.9 80.0 - 09/11 [place] 98.0 /2014 [facility] HEMATOLOGY MCHC 34.0 32.0 - 09/11 [place] 36.0 /2014 [facility] HEMATOLOGY MCH 33.3 27.0 - 09/11 [place] 31.0 /2014 [facility] HEMATOLOGY WBC X 10x3 14.1 3.7 - 10.4 09/11 /2014 [facility] HEMATOLOGY RBC X 10x6 2.02 4.20 - 09/11 [place] 5.40 /2014 [facility] BLOOD BANK Antibody Positive 1 09/10 <sup>1</sup>R [facility] RESULTS Scrn (09/10/14 8:01 AM) /2014 [facility] Medical Comment: Center 09/10/2014 09:24 [id number]
"Significant Findings of Positive Antibody Screen called to Magan Stinson at 0920 by SI. Read Back OK" BLOOD BANK ABO/Rh O POS 09/10 [facility] RESULTS /2014 [facility] BLOOD BANK Path MEGHAN This 09/10 [facility] RESULTS patient Medical a positive Center Direct [...] concur with the resident's interpretat ion. CPT: 51801-AZ BLOOD BANK Path AB Current 09/10 [facility] RESULTS testing Medical shows the Center patient [...] concur with the resident's interpretat ion. CPT: 73342-JY BLOOD BANK HX Antigen Le(a) neg 09/10 [place] RESULTS [facility] BLOOD BANK HX Antigen Jk(b) pos 09/10 [place] RESULTS /2014 [facility] BLOOD BANK HX Antigen K neg 09/10 RESULTS /2014 [facility] BLOOD BANK HX Antigen Jk(a) pos 09/10 [facility] [place] RESULTS /2015 Medical Center BLOOD BANK HX Antigen Fy(b) neg 09/10 [facility] [place] RESULTS /2015 [facility] Center BLOOD BANK HX Antigen Fy(a) pos 09/10 [facility] [place] RESULTS /2015 [facility] Center BLOOD BANK HX Antigen C pos 09/10 [place] RESULTS /2015 [facility] Center BLOOD BANK HX Antigen E neg 09/10 [place] RESULTS /2015 [facility] Center BLOOD BANK HX Antigen Cw neg 09/10 [place] RESULTS /2015 [facility] Center BLOOD BANK HX Antigen M pos 09/10 [facility] [place] RESULTS /2015 [facility] Center BLOOD BANK HX Antigen s pos 09/10 [place] RESULTS /2015 [facility] Center BLOOD BANK HX Antigen c neg 09/10 [place] RESULTS /2015 [facility] Center BLOOD BANK HX Antigen N neg 09/10 [place] RESULTS /2014 [facility] Center BLOOD BANK HX Antigen P1 pos 09/10 [place] RESULTS /2015 [facility] Center BLOOD BANK HX Antigen S neg 09/10 [place] RESULTS /2015 [facility] Center BLOOD BANK HX Antigen Le(b) neg 09/10 [place] RESULTS /2015 [facility] Center BLOOD BANK HISTORICAL Anti-S 09/10 [place] RESULTS AB /2014 [facility] BLOOD BANK HISTORICAL Anti-Bg(a) 09/10 [place] RESULTS AB /2014 [facility] BLOOD BANK HISTORICAL Anti-Cw 09/10 [place] RESULTS AB [facility] BLOOD BANK C3 Int Negative 09/10 [place] RESULTS (09/10/14 8:01 AM) /2014 [facility] BLOOD BANK [place] Int See Note 09/10 <sup>2</sup>R [place] RESULTS esult Medical Comment: Center 09/10/2014 12:56 [email or web address]
[place] non reactive with all cells tested. BLOOD BANK MEGHAN Gel Int Positive 09/10 [place] RESULTS (09/10/14 8:01 AM) /2014 [facility] BLOOD BANK AB Int Anti-E 09/10 [place] RESULTS /2015 [facility] BLOOD BANK AB Int Anti-c 09/10 [place] RESULTS /2014 [facility] HEMATOLOGY Hgb 6.3 12.0 - 09/10 <sup>10</sup> [place] 16.0 /2015 Result Medical Comment: Center Critical Result(s) called to JB LONDONO at _09/10/2014 07:45 byMK_. Read back OK. CHEM PANEL LDH 496 98 - 192 09/10 [place] /2014 [facility] ELECTROLYTE AGAP 11.8 10.0 - 09/10 [place] S 20.0 /2014 [facility] ELECTROLYTE eGFR 137 09/10 <sup>4</sup>R [facility] esult Medical Comment: The Center eGFR is [...] Calcium Lvl 8.3 8.5 - 10.5 09/10 [facility] ELECTROLYTE Chloride Lvl 113 95 - 109 09/10 [facility] ELECTROLYTE Sodium Lvl 144 135 - 145 09/10 [facility] 2014 [facility] ELECTROLYTE Glucose Lvl 81 70 - 99 09/10 <sup>7</sup>I [facility] nterpretive Medical Data: Adult Center reference range values reflect the clinical guidelines
of the [place] [employer]. ELECTROLYTE BUN 4 7 - 22 09/10 [facility] ELECTROLYTE Creatinine 0.6 0.5 - 1.4 09/10 [facility] ELECTROLYTE CO2 23 24 - 32 09/10 [facility] ELECTROLYTE Potassium 3.8 3.5 - 5.1 09/10 [facility] HEMATOLOGY Hgb 6.2 12.0 - 09/10 <sup>11</sup> [facility] 16. Result Medical Comment: Center Critical Result(s) called to Amy Fraga at 09/10/2014 06:07 by negrita. Read back OK. HEMATOLOGY WBC 15.9 3.7 - 10.4 09/10 2014 [facility] HEMATOLOGY RBC 1.85 4.20 - 09/10 [facility] [place] 5.40 /2014 [facility] HEMATOLOGY Hct 18.2 36.0 - 09/10 [place] 48.0 /2014 [facility] HEMATOLOGY MCV 98.3 80.0 - 09/10 [place] 98.0 [facility] HEMATOLOGY RDW 25.4 11.5 - 09/10 [place] 14.5 /2014 [facility] HEMATOLOGY Platelet 190 133 - 450 09/10 [facility] HEMATOLOGY MCH 33.6 27.0 - 09/10 [place] 31.0 /2014 [facility] HEMATOLOGY MCHC 34.2 32.0 - 09/10 [place] 36.0 [facility] HEMATOLOGY MPV 8.5 7.4 - 10.4 09/10 [facility] HEMATOLOGY Retic Auto 15.8 0.5 - 1.5 09/10 [facility] ELECTROLYTE AGAP 13.7 10.0 - 09/09 [facility] S 20.0 [facility] ELECTROLYTE eGFR 96 09/09 <sup>5</sup>R esult Medical [...] Calcium Lvl 9.1 8.5 - 10.5 09/09 [facility] ELECTROLYTE Potassium 3.7 3.5 - 5.1 09/09 [facility] S Lvl [facility] ELECTROLYTE Sodium Lvl 142 135 - 145 09/09 [facility] ELECTROLYTE Glucose Lvl 106 70 - 99 09/09 <sup>8</sup>I [facility] nterpretive Medical Data: Adult Center reference range values reflect the clinical guidelines
of the [place] [employer]. ELECTROLYTE Creatinine 0.9 0.5 - 1.4 09/09 [facility] S Lvl /2014 [facility] ELECTROLYTE BUN 6 7 - 22 09/09 [facility] S /2014 [facility] ELECTROLYTE CO2 26 24 - 32 09/09 [facility] S /2014 [facility] ELECTROLYTE Chloride Lvl 106 95 - 109 09/09 [facility] S /2014 [facility] HEMATOLOGY Sickle Cell Slight 09/09 [facility] /2014 [facility] HEMATOLOGY Schistocyte 1-3 per HPF None Seen 09/09 [facility] (09/09/14 2:13 AM) /2014 [facility] HEMATOLOGY Tear Cell Slight 09/09 [facility] HEMATOLOGY Target Cell Moderate None [facility] (09/09/14 2:13 AM) [place] HEMATOLOGY Polychrom Slight 09/09 [facility] /2014 [facility] HEMATOLOGY Plt Morph Normal 09/09 [facility] (09/09/14 2:13 AM) /2014 [facility] HEMATOLOGY Tot Cell Ct 100 09/09 [facility] /2014 [facility] HEMATOLOGY Bands 0.0 0.0 - 11.0 09/09 [facility] /2014 [facility] HEMATOLOGY Segs 49.0 45.0 - 09/09 [facility] 75.0 [facility] HEMATOLOGY Macrocyte 1+ None Seen 09/09 [facility] *ABN* /2014 [facility] (09/09/14 2:13 AM) [place] HEMATOLOGY Anisocyte 1+ None Seen 09/09 [facility] *ABN* /2014 [facility] (09/09/14 2:13 AM) [place] HEMATOLOGY NRBC 2 09/09 [facility] HEMATOLOGY Atypical 0.0 <=0.0 % 09/09 [facility] Lymphs [facility] HEMATOLOGY Eosinophils 3.0 0.0 - 4.0 09/09 [facility] /2014 [facility] HEMATOLOGY Monocytes 14.0 2.0 - 12.0 09/09 /2014 [facility] HEMATOLOGY Lymphocytes 34.0 20.0 - 09/09 [place] 40.0 [facility] HEMATOLOGY Eosinophils 0.6 0.0 - 0.5 09/09 [facility] # /2014 [facility] HEMATOLOGY Monocytes # 2.7 0.0 - 0.8 09/09 /2014 [facility] HEMATOLOGY Lymphocytes 6.5 1.0 - 5.5 09/09 [facility] [place] # /2014 [facility] HEMATOLOGY Segs-Bands # 9.3 1.5 - 8.1 09/09 /2014 [facility] HEMATOLOGY Retic Auto 16.6 0.5 - 1.5 09/09 [facility] HEMATOLOGY MPV 8.3 7.4 - 10.4 09/09 [facility] HEMATOLOGY RDW 25.8 11.5 - 09/09 14.5 [facility] HEMATOLOGY MCHC 34.3 32.0 - 09/09 [place] 36.0 /2014 [facility] HEMATOLOGY Platelet 220 133 - 450 09/09 /2014 [facility] HEMATOLOGY MCV 99.8 80.0 - 09/09 [place] 98.0 /2014 [facility] HEMATOLOGY Hct 22.7 36.0 - 09/09 48.0 [facility] HEMATOLOGY MCH 34.2 27.0 - 09/09 [place] 31.0 /2014 [facility] HEMATOLOGY WBC 19.0 3.7 - 10.4 09/09 [facility] HEMATOLOGY RBC 2.28 4.20 - 09/09 [place] 5.40 /2015 [facility] Pathology Reports No Data Provided for This Section Diagnostic Reports No Data Provided for This Section Consultation Notes No Data Provided for This Section Discharge Summaries No Data Provided for This Section History and Physicals No Data Provided for This Section Vital Signs Vital Sign Value Date Comments Source Respitory Rate 18 09/12/2014 [facility] Systolic (mm Hg) 120 09/12/2014 [facility] Heart Rate 80 09/12/2014 [facility] Diastolic (mm Hg) 80 09/12/2014 [facility] Temperature Oral (F) 98.0 F 09/12/2014 [facility] Diastolic (mm Hg) 82 09/11/2014 [facility] Respitory Rate 18 09/11/2014 [facility] Systolic (mm Hg) 132 09/11/2014 [facility] Heart Rate 82 09/11/2014 [facility] Temperature Oral (F) 98.4 F 09/11/2014 [facility] Respitory Rate 16 09/11/2014 [facility] Heart Rate 86 09/11/2014 [facility] Systolic (mm Hg) 120 09/11/2014 [facility] Diastolic (mm Hg) 86 09/11/2014 [facility] Temperature Oral (F) 98.1 F 09/11/2014 [facility] Weight 70.591 09/10/2014 [facility] Weight 68.182 09/09/2014 [facility] BMI Calculated 26.63 09/09/2014 [facility] Height 160.02 cm 09/09/2014 [facility] Weight 70 09/09/2014 [facility] Height 160.02 cm 09/09/2014 [facility] BMI Calculated 27.34 09/09/2014 [facility] Encounters Location Location Encounter Encounter Reason Attending ADM DC Status Source Details Type Number For Provider Date Date Visit [facility] Inpatient [id number] Josiane 09/09 09/12 [facility] Roly Pj /2014 [facility] Procedures No Data Provided for This Section Assessment and Plan Assessment and Plan Date Source Extracted from:Title: Discharge Summary 09/12/2014 [facility] Author: Josiane Oliva MD Date: 09/12/14 Discharge [...] presented with pain crisis. She required dilaudid SIGNS CLEANER bolusdoses in addition to PO long acting narcotic medication and NSAID, Tylenol. She wa s given opana 20mg q12h, PRN oxycodone and Dilaudid SIGNS CLEANER 0.2mg bolus q 10min lockout. On day o discharge, she felt she could manage her pain with oral medication at home and wsa discharged. Procedures: none Consultations: none Discharge medications: see discharge medication reconciliation form Discharge condition: good Followup: with her curriculum development coordinator as outpatient Time spent on discharge: 40 [...] Patient denies any triggers. She saw her curriculum development coordinator sunday: white count 19, hg 7.4 which [...] Medical History: Resolved CVA - Cerebrovascular accident ([id number]): Resolved. TIA ([id number]): Resolved. Sickle cell anemia ([id number]): Resolved. Aplastic anemia ([id number]): Resolved. Family History: No family history items [...] unchanged from last sunday office visit with curriculum development coordinator Dr. Guaman; xray negative; UA pending #acute pain: cont IV dialudid prn q3hrs, cont home oxymorphone ; cont IV fluids #h/o HTN: during sickle crisis, monitor BP regular diet Addendum by Ha Mann MD on 09/09/2014 06:24 correction: oxymorphone is 30mg q12. Plan of Care No Data Provided for This Section Social History Social History Date Source Social History TypeResponse 09/09/2014 [facility] Alcohol Use: Never Smoking Status Never smoker, Exposure to Tobacco Smoke None, Cigarette Smoking Last 365 Days No, Reg Smoking Cessation Counseling Yes Family History No Data Provided for This Section Advance Directives No Data Provided for This Section Functional Status No Data Provided for This Section
--- OUTSIDE RECORDS SUMMARY | 2019-04-12 08:15 | XMS REPORT | Summary of Care ---
:1980 Author Organization [facility] - Health Address [address] [place] [address] Care Team Providers Name Role Phone Kwesi Guaman Unavailable Unavailable Jayson Jay MD Primary Care Provider Encounter Details Date Type Department Care Team Description 03/28/2019 Orders Only [facility] Doctor Unassigned, No [address] [facility] [place] [address] [address] [place] [address] Allergies Active Allergy Reactions Severity Noted Date [...] as of this encounter (statuses as of 03/28/2019) Medications Medication Sig Dispensed Refills Start Date [...] as of this encounter (statuses as of 03/28/2019) Active Problems Problem Noted Date Obesity (BMI 30-39.9) 01/30/2019 Atypical chest pain 01/28/2019 LANE (dyspnea on exertion) 01/27/2019 Sickle cell pain crisis 01/27/2019 History of acute myocardial infarction 07/08/2017 History of CVA (cerebrovascular accident) 07/08/2017 Anxiety Depression Hypertension Seizures Sickle cell anemia documented as of this encounter (statuses as of 03/28/2019) Resolved Problems Problem Noted Date Resolved Date Foot pain, right 11/29/2015 07/08/2017 documented as of this encounter (statuses as of 03/28/2019) Social History Tobacco Use Types Packs/Day Years [...] of this encounter Last Filed Vital Signs Not on filedocumented in this encounter Plan of Treatment Date Type Specialty Care Team Description 07/11/2019 Office Visit Cardiology Rell Rose MD [address] [place] [address] [place] [address] [phone] Health Maintenance Due Date Last Done Comments PNEUMOCOCCAL 0-64 YEARS COMBINED SERIES ( - 1985 PCV13) DTaP,Tdap,and Td Vaccines (1 - Tdap) 1998 PAP SMEAR 2000 MAMMOGRAM 2019 INFLUENZA VACCINE 04/20/2019 documented as of this encounter Procedures Procedure Name Priority Date/Time Associated Diagnosis Comments ASSIGNMENT OF BENEFITS Routine 03/28/2019 12:02 PM CDT documented in this encounter Results Not on filedocumented in this encounter Insurance Payer Benefit Plan / Subscriber ID Effective Phone Address Type Group Dates [facility] [id number] 2017-Pres Medicare HEALTHCARE - HEALTHCARE ent Adv HMO MANAGED DUAL COMPLETE MEDICARE [facility] MEDICAID OF xxxxxxxxx 2019-Pres [phone] Medicaid [place] ent [id number] [place] [address] documented as of this encounter
--- OUTSIDE RECORDS SUMMARY | 2019-04-12 08:15 | XMS REPORT | Summary of Care ---
:1980 Author Organization [facility] Address [address] [place] [id number] Care Team Providers Name Role Phone Kwesi Guaman Unavailable Unavailable Jayson Jay MD Primary Care Provider Reason for Visit Reason Comments LAB WORK Auth/Cert Status Reason Specialty Diagnoses / Referred By Referred To Procedures Contact Contact Clinical Medical Diagnoses Annual physical exam Annual physical exam [facility] Lab Laboratory Procedures HCV ANTIBODY, HEP B, TRICHOMONAS AMPLIFIED, GC & CHLAMYDIA,ADC [address] [place] [address] [place] [address] Encounter Details Date Type Department Care Team Description 03/28/2019 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 Visit [facility] Jayson Jay MD [address] [place] [address] [place] [address] Annual physical exam; Phlebotomy , [facility] Lab Routine screening for STI (sexually transmitted infection); [facility]-[place] Encounter for screening for other viral diseases; [address] [place] [address] [address] [facility] senior living (current) drug therapy; [place], [place] Anemia, unspecified type; [id number] Arthralgia, unspecified joint [phone] Allergies Active Allergy Reactions Severity Noted Date [...] Rose MD [address] BENSON [address] [place] [id number] Name Type Priority Associated Diagnoses Date/Time ADC, CLC OR [facility] ONLY - LAB Routine Annual physical exam 03/28/2019 12:25 PM HIV TYPE 1 AND 2 ANTIBODY Routine screening for CDT SCREEN WITH P24 STI (sexually transmitted infection) Encounter for screening for other viral diseases 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 Anemia, unspecified type Arthralgia, unspecified joint ADC OR [place] ONLY - [facility] LAB Routine Annual physical exam 03/28/2019 12:25 PM Routine screening for CDT STI (sexually transmitted infection) Encounter for screening for other viral diseases Other senior living (current) drug therapy Anemia, unspecified type Arthralgia, unspecified joint GC & CHLAMYDIA AMPLIFIED LAB Routine Annual physical exam 03/28/2019 12:43 PM ASSAY Routine screening for CDT STI (sexually transmitted infection) Encounter for screening for other viral diseases 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 Anemia, unspecified type Arthralgia, unspecified joint TRICHOMONAS AMPLIFIED LAB Routine Annual physical exam 03/28/2019 12:43 PM ASSAY Routine screening for CDT STI (sexually transmitted infection) Encounter for screening for other viral diseases 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 infection) Encounter for screening for other viral diseases Other senior living (current) drug therapy Anemia, unspecified type Arthralgia, unspecified joint documented in this encounter Results HCV ANTIBODY (03/28/2019 12:25 PM CDT) HCV Ab NEGATIVE [facility] HCV Semi-Quantitative 0.15 [facility] Specimen Blood Performing Organization Address [facility] Phone Number [facility] CLIA: [id number], [address] [place], [place] [address] [phone] [facility] HEPATITIS B SURFACE ANTIGEN (03/28/2019 12:25 PM CDT) HBsAg HEPATITIS B Negative [facility] SURFACE ANTIGEN SERVICES NEGATIVE HBsAg 0.11 [facility] Semi-Quantitative SERVICES Specimen Blood Performing Organization Address City/State/Zipcode Phone Number [facility] CLIA: [id number], [address] [place], [place] [address] [facility] documented in this encounter Visit Diagnoses Diagnosis Annual physical exam Routine general medical examination at a health care facility Routine screening for STI (sexually transmitted infection) Screening examination for venereal disease Encounter for screening for other viral diseases Other senior living (current) drug therapy Anemia, unspecified type Arthralgia, unspecified joint documented in this encounter Insurance Payer Benefit Plan / Subscriber ID Effective Phone Address Type Group Dates [facility] [id number] 2017-Pres Medicare HEALTHCARE - HEALTHCARE ent Adv HMO MANAGED DUAL COMPLETE MEDICARE HMO [place] MEDICAID OF xxxxxxxxx 2019-Pres [phone] Medicaid [place] ent [id number] [place] [address] documented as of this encounter
--- OUTSIDE RECORDS SUMMARY | 2019-04-12 08:15 | XMS REPORT | Summary of Care ---
:1980 Author Organization [facility] Address [address] [place] [id number] Care Team Providers Name Role Phone Kwesi Guaman Unavailable Unavailable Jayson Jay MD Primary Care Provider Reason for Referral Radiology Services (Routine) Status Reason Specialty Diagnoses / Referred By Referred To Procedures Contact Contact New Request Diagnostic Diagnoses Breast cancer screening Misty, Radiology Procedures BI SCREENING MAMMOGRAM BILATERAL Jayson Daley MD [address] [place] [address] [facility] [place] [address] (Routine) Status Reason Specialty Diagnoses / Referred By Referred To Procedures Contact Contact New Request Patient is Diagnoses Referral of patient Rhona Jay, Established with a Procedures CONSULT/REFERRAL POLICE LIAISON OFFICER MD Melvin Vyas Specific Provider [address] [place] [address] [place] [phone] Phone: Fax: Reason for Visit Reason Comments ANNUAL EXAM Auth/Cert Status Reason Specialty Diagnoses / Referred By Referred To Procedures Contact Contact Clinical Medical Diagnoses Annual physical exam Annual physical exam Adc Lab Laboratory Procedures HCV ANTIBODY, HEP B, TRICHOMONAS AMPLIFIED, GC & CHLAMYDIA,ADC [address] [facility] [place] [address] Encounter Details Date Type Department Care Team Description 03/28/2019 Office Visit [facility] Family Jayson Jay Annual physical exam (Primary Dx); Medicine - Kenya Daley MD [facility] [address] [place] [address] Breast cancer screening; [place] Routine screening for STI (sexually transmitted infection); [phone] Encounter for screening for other viral diseases; [phone] Other long term care administrator (current) drug therapy; Anemia, unspecified type; Arthralgia, unspecified joint Allergies Active Allergy Reactions Severity Noted Date [...] as of this encounter (statuses as of 03/30/2019) Medications Medication Sig Dispensed Refills Start Date End Date Status triamcinolone 0 10/27/2015 Active acetonide (KENALOG) 0.1 % ointment proMETHazine 0 10/12/2015 Active (PHENERGAN) 25 mg tablet ibuprofen (MOTRIN) 0 10/12/2015 Active 600 mg tablet HYDROcodone-acetami Take 2 tablets 0 11/10/2015 Active nophen (NORCO) by mouth 4 10-325 mg tablet (four) times daily. foLIC acid (FOLATE) Take 1 mg by 0 Active 1 mg tablet mouth. mirtazapine 45 mg Take 45 mg by 0 Active tablet mouth. albuterol 90 Inhale 2 Puffs 1 Inhaler 1 01/21/2019 Active mcg/actuation every 6 (six) inhalerIndications: hours as needed SOB (shortness of for Wheezing or breath) Shortness of Breath. amLODIPine 2.5 mg Take 1 tablet 90 tablet 1 01/24/[address] Active [address]Indications: by mouth daily. LANE (dyspnea on exertion), Essential hypertension benzonatate 200 mg Take 1 capsule 30 capsule 0 01/31/2019 Discontinued capsuleIndications: by mouth 3 9 Cough (three) times daily as needed for Cough. documented as of this encounter (statuses as of 03/30/2019) Active Problems Problem Noted Date Obesity (BMI 30-39.9) 01/30/2019 Atypical chest pain 01/28/2019 [address] (dyspnea on exertion) 01/27/2019 Sickle cell pain crisis 01/27/2019 History of acute myocardial infarction 07/08/2017 History of CVA (cerebrovascular accident) 07/08/2017 Anxiety Depression Hypertension Seizures Sickle cell anemia documented as of this encounter (statuses as of 03/30/2019) Resolved Problems Problem Noted Date Resolved Date Foot pain, right 11/29/2015 07/08/2017 documented as of this encounter (statuses as of 03/30/2019) Social History Tobacco Use Types Packs/Day Years [...] Sign Reading Time Taken Comments Blood Pressure 115/74 03/28/2019 11:32 AM CDT Pulse 96 03/28/2019 11:32 AM CDT Temperature 36.6 C (97.9 F) 03/28/2019 11:32 AM CDT Respiratory Rate - - Oxygen Saturation - - Inhaled Oxygen Concentration - - Weight 74.8 kg (164 lb 12.8 oz) 03/28/2019 11:32 AM CDT Height 160 cm (5' 3") 03/28/2019 11:32 AM CDT Body Mass Index 29.19 03/28/2019 11:32 AM CDT documented in this encounter Patient Instructions Patient InstructionsJayson Jay MD - 03/28/2019 11:30 AM CDT Prevention Guidelines,Women Ages 40 to 49 Screening tests and vaccines are an important part of managing your health. A screening test is doneto find possible disorders or diseases in people who don' t have any symptoms. The goal is to find a disease early so lifestyle changes can be made and you can be watched more closely to reduce the riskof disease, or to detect it early enough to treat it most effectively. Screening tests are not considered diagnostic, but are used to determine if more testing is needed. Health counseling is essential, too. Below are guidelines for these, for women ages 40 to 49. Talk with your healthcare provider to make sure youre up-to- date on what you need. Screening Who needs it How often Type 2 diabetes or prediabetes All women beginning at age 45 and women without symptoms at any age who are overweight or obese and have 1 or more additional risk factors for diabetes At least every 3 years1 Type 2 diabetes or prediabetes All women diagnosed with gestational diabetes Lifelong testing every 3 years Type 2 diabetes All women with prediabetes Every year Alcohol misuse All women in this age group At routine exams Blood pressure All women in this age group Yearly checkup if your blood pressure is normal Normal blood pressure is less than 120/80 mm Hg If your blood pressure reading is higher than normal, follow the advice of your healthcare provider Breast cancer All women at average risk in this age group Screening with a mammogram can start at age 40.2 Talk with your healthcare provider to help you decide when to start screening. At age 45 startyearly mammograms.3 Cervical cancer All women in this age group, except women who have had a complete hysterectomy Pap test every 3 yearsor Pap test plushuman papilloma virus (HPV)test every 5 years Chlamydia Women at increased risk for infection At routine exams if you're at risk or have symptoms Depression All women in this age group At routine exams Gonorrhea Sexually active women at increased risk for infection At routine exams Hepatitis C Anyone at increased risk; 1 time for those born between 1945 and 1965 At routine exams High cholesterol or triglycerides All women ages 45 and older who are at risk for coronary artery disease; younger women, talk with your healthcare provider At least every 5 years HIV All women At routine exams. Those with risk factors for HIV should be tested at least annually. Obesity All women in this age group At routine exams Syphilis Women at increased risk for infectiontalk with your healthcare provider At routine exams Tuberculosis Women at increased risk for infectiontalk with your healthcare provider Ask your healthcare provider Vision All women in this age group Complete exam at age 40 and eye exams every 2 to 4 years. If you have a chronic disease, ask your healthcare provider how often you should have your eyes examined.4 Vaccine Who needs it How often Chickenpox (varicella) All women in this age group who have no record of this infection or vaccine 2doses; the second dose should be given at least 4 weeks after the first dose Hepatitis A Women at increased risk for infectiontalk with your healthcare provider 2 doses given6 months apart Hepatitis B Women at increased risk for infectiontalk with your healthcare provider 3 doses over 6 months; second dose should be given 1 month after the first dose; the third dose should be given atleast 2 months after the second dose and at least 4 months after the first dose Haemophilus influenzaeType B (HIB) Women at increased risk 1 to 3 doses Influenza (flu) All women in this age group Once a year Measles, mumps, rubella (MMR) All women in this age group who have no record of these infections or vaccines 1 or 2 doses Meningococcal Women at increased risk for infectiontalk with your healthcare provider 1 or more doses Pneumococcal conjugate vaccine (PCV13)and pneumococcal polysaccharide vaccine(PPSV23) Women at increased risk for infectiontalk with your healthcare provider 1 or 2 doses Tetanus/diphtheria/pertussis (Td/Tdap) booster All women in this age group A one -time dose of Tdap instead of a Td booster after age 18, then Td every 10 years Counseling Who needs it How often BRCA gene mutation testing for breast and ovarian cancer susceptibility Women with increased risk for having gene mutation When your risk is known Breast cancer and chemoprevention Women at high risk for breast cancer When your risk is known Diet and exercise Women who are overweight or obese When diagnosed, and then at routine exams Domestic violence Women at the age in which they are able to have children At routine exams Sexually transmitted infection prevention Women at increased risk for infection talk with your healthcare provider At routine exams Use of tobacco and the health effects it can cause All women in this age group Every exam 1American Diabetes Association 2American College of Obstetricians and Gynecologists 3American Cancer Society 4American Academy of Ophthalmology Date Last Reviewed: 06/20/201719998217-4352 The [employer]. [address] [place] [address]. All rights reserved. This information is not intended as a substitute for professional medical care. Always follow your healthcare professional's instructions. documented in this encounter Progress Notes Jayson Jay MD - 03/28/2019 11:30 AM CDT Cc: Chief Complaint Patient presents with ANNUAL EXAM HPI Brennon Duffy is a 39 year old female who presents today for annual wellness exam. She is accompanied by her daughter. Annual wellness visit: Describes diet: Good. Exercise frequency: Very little due to chronic pain. Last INSURANCE EXAMINER exam/pap smear: "Few years ago". Associate Professor Physician: Dr. Melvin Melgoza. No LMP recorded. Patient has had a hysterectomy. Contraception: Hyst. STD screening consent?: Accepts. Last mammogram: Never. Candidate for pneumococcal vaccine?: Yes due to her SCD but she declines the vaccine. Candidate for influenza vaccine?: Not available yet. Candidate for Tdap?: Yes but she declines the vaccine. Domestic/relationship violence screen is negative. Last cardiac screening?: 01/28/19. Depression screen: PHQ-2 Little interest or pleasure in doing things: Not at all Feeling down, depressed, or hopeless: Not at all PHQ-2 Score (_/6): 0 PHQ-2 Scoring Interpretation: Negative screen Accepts referral for skin cancer screening exam with a General Studies Program Chair?: No. Allergies Brennon is allergic to morphine; morphine; reglan [metoclopramide hcl]; stadol [butorphanol tartrate]; stadol [butorphanol tartrate]; toradol [ketorolac tromethamine]; toradol [ketorolac tromethamine]; tramadol; trazodone; trazodone ; and zofran [ondansetron hcl (pf)]. Medications Outpatient Medications Prior to Visit Medication Sig Dispense Refill benzonatate 200 mg capsule Take 1 capsule by mouth 3 (three) times daily as needed for Cough. 30capsule 0 amLODIPine 2.5 mg tablet Take 1 tablet by mouth daily. 90 tablet 1 albuterol 90 mcg/actuation inhaler Inhale 2 Puffs every 6 (six) hours as needed for Wheezing or Shortness of Breath. 1 Inhaler 1 mirtazapine 45 mg tablet Take 45 mg by mouth. foLIC acid (FOLATE) 1 mg tablet Take 1 mg by mouth. HYDROcodone-acetaminophen (NORCO) 10-325 mg tablet Take 2 tablets by mouth 4 (four) times daily. ibuprofen (MOTRIN) 600 mg tablet proMETHazine (PHENERGAN) 25 mg tablet triamcinolone acetonide (KENALOG) 0.1 % ointment No facility-administered medications prior to visit. Histories Past Medical History: Diagnosis Date Acute myocardial infarction Allergic rhinitis Anxiety Arthritis Depression Heart murmur Hypertension Irregular heartbeat Memory loss Migraines Seizures Sickle cell anemia Stroke Transfusion history Past Surgical History: Procedure Laterality Date BIOPSY/EXCISION, LYMPH NODE(S) SECTION CHOLECYSTECTOMY COLONOSCOPY 03/06/2019 Dr. Tiwari, no polyps HYSTERECTOMY LINE(S) CLEARED FOR USE 5 SPLENECTOMY SURGICAL HISTORY OTHER (SHX) PORT-A-CATH Social History Socioeconomic History Marital status: Spouse [...] file Gets together: Not on file Attends rastafarian service: Not on file Active member of [...] Narrative Disabled due to sickle cell disease. Family History Problem Relation Age of Onset Hypertension Mother High cholesterol Mother Hypertension Father Heart Father Depression Father Allergies Father Cancer Paternal Aunt Heart Paternal Aunt Cancer Paternal Uncle Heart Paternal Uncle Cancer Paternal Grandfather Review of Systems Constitutional: Positive for fatigue. HENT: Negative. Eyes: Negative. Respiratory: Positive for shortness of breath. Cardiovascular: Negative. Gastrointestinal: Negative. Genitourinary: Negative. Musculoskeletal: Positive for arthralgias and myalgias. Skin: Negative. Neurological: Positive for weakness (LUE, chronic). Psychiatric/Behavioral: Negative. Endocrine: Endocrine negative Vital Signs BP 115/74 (BP Location: Right arm, Patient Position: Sitting, BP CUFF SIZE: Adult Large) | Pulse 96 | Temp 36.6 C (97.9 F) (Tympanic) | Ht 5' 3" (1.6 m) | Wt 164 lb 12.8 oz (74.8 kg) | BMI 29.19 kg/m Physical Exam Constitutional: She is oriented to person, place, and time. She appears well- developed and well-nourished. HENT: Head: Normocephalic and atraumatic. Right Ear: Tympanic membrane and ear canal normal. Left Ear: Tympanic membrane and ear canal normal. Nose: Nose normal. Mouth/Throat: Oropharynx is clear and moist. Eyes: Pupils are equal, round, and reactive to light. Conjunctivae and EOM are normal. No scleral icterus. Neck: Normal range of motion. Neck supple. No thyromegaly present. Cardiovascular: Normal rate, regular rhythm and intact distal pulses. Exam reveals no gallop and no friction rub. Murmur heard. Systolic murmur is present with a grade of 2/6. Pulmonary/Chest: Effort normal and breath sounds normal. No respiratory distress. She has no wheezes. She has no rales. Abdominal: Soft. Bowel sounds are normal. She exhibits no distension and no mass. There is no tenderness. A hernia (Umbillical) is present. Musculoskeletal: She exhibits no edema. Lymphadenopathy: She has no cervical adenopathy. Neurological: She is alert and oriented to person, place, and time. She has normal reflexes. She exhibits abnormal muscle tone (LUE). Skin: Skin is warm and dry. No rash noted. There is pallor. Psychiatric: She has a normal mood and affect. Nursing note and vitals reviewed. Labs Admission on 01/27/2019, Discharged on 01/30/2019 No results displayed because visit has over 200 results. Office Visit on 01/21/2019 Component Date Value NT-proBNP 01/21/2019 101 Assessment/Plan Brennon was seen today for annual exam. Diagnoses and all orders for this visit: Annual physical exam, Routine screening for STI (sexually transmitted infection) Discussed cancer screening guidelines and other health maintenance recommendations for her age and gender. Healthy diet, importance of regular exercise, preventive dental care, and regular eye exams were encouraged. General safety, breast self-awareness, and STD screening were all discussed. See weaving supervisor annually for routine four slide operator care, pap smear schedule per INSURANCE EXAMINER. Labs and any other orders as noted below. - ADC, CLC OR LCC ONLY - HIV TYPE 1 AND 2 ANTIBODY SCREEN WITH P24; Standing - ADC OR [place] ONLY - RPR; Standing - GC & CHLAMYDIA AMPLIFIED ASSAY; Standing - TRICHOMONAS AMPLIFIED ASSAY; Standing - HEPATITIS B SURFACE ANTIGEN; Standing - HCV ANTIBODY; Standing Referral of patient Referral for routine gynecologic exam. I explained to the patient that I prefer for my patients to see a weaving supervisor for their pelvic exam/four slide operator evaluation given I perform this service so rarely. I feel a weaving supervisor is more adept at recognizing pathology on exam and I want my patients to benefitfrom that expertise. - CONSULT/REFERRAL POLICE LIAISON OFFICER Breast cancer screening - BI SCREENING MAMMOGRAM BILATERAL; Future Plan of care, desired health behaviors, goals, Ddx, and any prescribed medications were discussed with the patient. This visit did not involve counseling and coordination that comprised more than 50% of the visit time. Education resources and self-management tools were provided and reviewed with the AVS. Patient/guardian/family verbalized understanding and agrees to the plan of care. Barriers tocare: None. Ability to manage care: Good. Advanced care planning (living will) information was not given/offered to the patient to review for discussion at a future visit. If applicable, the [facility] database was accessed to review any controlled substance prescription claims data. If the patient is taking prescribed medications, the [employer] prescription claims data in [employer] was reviewed to assess patient compliance with the medication treatment plan. Follow-up: Return 6 months for follow-up of chronic conditions. Follow-up sooner if any problems or concerns. Scribe Attestation Susi Page , am scribing for, and in the presence of, Jayson Jay MD who performed the services described here-in. Susi March, March 28, 2019, 11:44 AM Physician Attestation Kaylee, Jayson Jay MD, personally performed the services described in this documentation , as scribed by, Susi March in my presence and it is both accurate and complete. Jayson Jay MD March 28, 2019, 11:44 AM documented in this encounter Plan of Treatment Date Type Specialty Care Team Description 07/11/2019 Office Visit Cardiology Rell Rose MD [address] [place] [address] [place] [phone] Name Type Priority Associated Diagnoses Date/Time GC & CHLAMYDIA AMPLIFIED LAB Routine Annual physical exam 03/28/2019 12:43 PM ASSAY Routine screening for CDT STI (sexually transmitted infection) Encounter for screening for other viral diseases Other long term care administrator (current) drug therapy Anemia, unspecified type Arthralgia, unspecified joint TRICHOMONAS AMPLIFIED LAB Routine Annual physical exam 03/28/2019 12:43 PM ASSAY Routine screening for CDT STI (sexually transmitted infection) Encounter for screening for other viral diseases Other shelter (current) drug therapy Anemia, unspecified type Arthralgia, unspecified joint Name Type Priority Associated Diagnoses Order Schedule BI SCREENING MAMMOGRAM IMAGING Routine Breast cancer screening Expected: , BILATERAL Expires: 05/28/2020 GC & CHLAMYDIA LAB Routine Annual physical exam 1 Occurrences starting AMPLIFIED ASSAY Routine screening for 03/28/2019 until STI (sexually 05/27/2019 transmitted infection) Encounter for screening for other viral diseases Other long term care administrator (current) drug therapy Anemia, unspecified type Arthralgia, unspecified joint TRICHOMONAS AMPLIFIED LAB Routine Annual physical exam 1 Occurrences starting ASSAY Routine screening for 03/28/2019 until STI (sexually 05/27/2019 transmitted infection) Encounter for screening for other viral diseases Other shelter (current) drug therapy Anemia, unspecified type Arthralgia, unspecified joint Health Maintenance Due Date Last Done Comments PAP SMEAR 2000 MAMMOGRAM 2019 INFLUENZA VACCINE 04/20/2019 DTaP,Tdap,and Td Vaccines (1 - 03/30/2020 Postponed from 1998 Tdap) (Patient Refused) PNEUMOCOCCAL 0-64 YEARS COMBINED 03/30/2020 Postponed from 1985 SERIES (1 of 3 - PCV13) (Patient Refused) documented as of this encounter Results HCV ANTIBODY (03/28/2019 12:25 PM CDT) HCV Ab NEGATIVE [facility] HCV Semi-Quantitative 0.15 [facility] Specimen Blood Performing Organization Address City/State/Zipcode Phone Number [facility] CLIA: [id number], [address] [place] [address] [phone] [facility] HEPATITIS B SURFACE ANTIGEN (03/28/2019 12:25 PM CDT) HBsAg HEPATITIS B Negative [facility] SURFACE ANTIGEN SERVICES NEGATIVE HBsAg 0.11 [facility] Semi-Quantitative SERVICES Specimen Blood Performing Organization Address City/State/Zipcode Phone Number [facility] CLIA: [id number], [address] [place] [address] [phone] [facility] ADC OR [place] ONLY - RPR (03/28/2019 12:25 PM CDT) RPR (Qualitative) NON-REACTIVE Nonreactive [facility] Specimen Blood Performing Organization Address City/[facility]/Zipcode Phone Number [facility] CLIA: [id number], [address] [place] [address] ADC, CLC OR LCC ONLY - HIV TYPE 1 AND 2 ANTIBODY SCREEN WITH P24 (03/28/2019 12: 25 PM CDT) Pathologist [facility] HIV 1/2 AG/AB NON-REACTIVE Nonreactive [facility] Specimen Blood - VENOUS Performing Organization Address [facility] Phone Number [facility] CLIA: [id number], [address] [place] [address] documented in this encounter Visit Diagnoses Diagnosis Annual physical exam - Primary Routine general medical examination at a health care facility Referral of patient Referral of patient without examination or treatment Breast cancer screening Breast screening, unspecified Routine screening for STI (sexually transmitted infection) Screening examination for venereal disease Encounter for screening for other viral diseases Other shelter (current) drug therapy Anemia, unspecified type Arthralgia, unspecified joint documented in this encounter Insurance Payer Benefit Plan / Subscriber ID Effective Phone Address Type Group Dates [facility] [id number] 2017-Pres Medicare HEALTHCARE - HEALTHCARE ent Adv HMO MANAGED DUAL COMPLETE MEDICARE HMO HP MEDICAID OF xxxxxxxxx 2019-Pres [phone] Medicaid [place] ent [id number] [place] [address] documented as of this encounter
--- OUTSIDE RECORDS SUMMARY | 2019-04-12 08:15 | XMS REPORT | Summary of Care ---
:1980 Author Organization [facility] Address [address] [place] [address] Care Team Providers Name Role Phone Kwesi Guaman Unavailable Unavailable Jayson Jay MD Primary Care Provider Reason for Referral Radiology Services (Routine) Status Reason Specialty Diagnoses / Referred By Referred To Procedures Contact Contact New Request Diagnostic Diagnoses Breast cancer screening Misty, Radiology Procedures BI SCREENING MAMMOGRAM BILATERAL Jayson Daley MD [address] [place] [address] [facility] [place] [address] (Routine) Status Reason Specialty Diagnoses / Referred By Referred To Procedures Contact Contact New Request Patient is Diagnoses Referral of patient Rhona Jay, Established with a Procedures CONSULT/REFERRAL BACK HOE OPERATOR MD Melvin Vyas Specific Provider [address] [place] [address] [place] [phone] Phone: Fax: Reason for Visit Reason Comments ANNUAL EXAM Auth/Cert Status Reason Specialty Diagnoses / Referred By Referred To Procedures Contact Contact Clinical Medical Diagnoses Annual physical exam Annual physical exam Adc Lab Laboratory Procedures HCV ANTIBODY, HEP B, TRICHOMONAS AMPLIFIED, GC & CHLAMYDIA,ADC [address] [place] [address] Encounter Details Date Type Department Care Team Description 03/28/2019 Office Visit [facility] Jayson Jay Annual physical exam (Primary Dx); Medicine - Kenya Daley MD Referral of patient; [facility] [address] [place] [address] Breast cancer screening; [place] Routine screening for STI (sexually transmitted infection); [id number] Encounter for screening for other viral diseases; [phone] Other press tender long goods (current) drug therapy; Anemia, unspecified type; Arthralgia, [...] 4American Academy of Ophthalmology Date Last Reviewed: 06/20/201719992420-6003 [employer]. [address] [place] [address]. All rights reserved. This information is not [...] Very little due to chronic pain. Last AIR CONDITIONING SUPERVISOR exam/pap smear: "Few years ago". Inspector Precision Assembly: Dr. Melvin Melgoza. No LMP recorded. Patient [...] for skin cancer screening exam with a Healthcare Project Manager?: No. Allergies Brennon is allergic to morphine; [...] file Gets together: Not on file Attends lutheran service: Not on file Active member of [...] and STD screening were all discussed. See bit tapper annually for routine brushing operator care, pap smear schedule per AIR CONDITIONING SUPERVISOR. Labs and any other orders as noted [...] prefer for my patients to see a bit tapper for their pelvic exam/brushing operator evaluation given I perform this service so rarely. I feel a bit tapper is more adept at recognizing pathology on exam and I want my patients to benefitfrom that expertise. - CONSULT/REFERRAL BACK HOE OPERATOR Breast cancer screening - BI SCREENING MAMMOGRAM [...] at a future visit. If applicable, the [facility] database was accessed to review any controlled substance prescription claims data. If the patient is taking prescribed medications, the [employer] prescription claims data in [employer] was reviewed to assess patient compliance with [...] Rose MD [address] [address] [place] [phone] Name Type Priority Associated Diagnoses Date/Time GC & CHLAMYDIA AMPLIFIED LAB Routine Annual physical exam 03/28/2019 12:43 PM ASSAY Routine screening for CDT STI (sexually transmitted infection) Encounter for screening for other viral diseases Other press tender long goods (current) drug therapy Anemia, unspecified type Arthralgia, unspecified joint TRICHOMONAS AMPLIFIED LAB Routine Annual physical exam 03/28/2019 12:43 PM ASSAY Routine screening for CDT STI (sexually transmitted infection) Encounter for screening for other viral diseases Other jail (current) drug therapy Anemia, unspecified type Arthralgia, unspecified joint Name Type Priority Associated Diagnoses Order Schedule BI SCREENING MAMMOGRAM IMAGING Routine Breast cancer screening Expected: , BILATERAL Expires: 05/28/2020 GC & CHLAMYDIA LAB Routine Annual physical exam 1 Occurrences starting AMPLIFIED ASSAY Routine screening for 03/28/2019 until STI (sexually 05/27/2019 transmitted infection) Encounter for screening for other viral diseases Other press tender long goods (current) drug therapy Anemia, unspecified type Arthralgia, unspecified joint TRICHOMONAS AMPLIFIED LAB Routine Annual physical exam 1 Occurrences starting ASSAY Routine screening for 03/28/2019 until STI (sexually 05/27/2019 transmitted infection) Encounter for screening for other viral diseases Other jail (current) drug therapy Anemia, unspecified type Arthralgia, [...] (03/28/2019 12:25 PM CDT) HCV Ab NEGATIVE [facility] HCV Semi-Quantitative 0.15 [facility] Specimen Blood Performing Organization Address City/State/Zipcode Phone Number [facility] CLIA: [id number], [address] [place] [address] [facility] HEPATITIS B SURFACE ANTIGEN (03/28/2019 12:25 PM CDT) HBsAg HEPATITIS B Negative [facility] SURFACE ANTIGEN SERVICES NEGATIVE HBsAg 0.11 [facility] Semi-Quantitative SERVICES Specimen Blood Performing Organization Address City/State/Zipcode Phone Number [facility] CLIA: [id number], [address] [place] [phone] [facility] ADC OR [place] ONLY - RPR (03/28/2019 12:25 PM CDT) RPR (Qualitative) NON-REACTIVE Nonreactive [facility] Specimen Blood Performing Organization Address City/[facility]/Zipcode Phone Number [facility] CLIA: [id number], [address] [place] [address] ADC, CLC OR LCC ONLY - HIV TYPE 1 AND 2 ANTIBODY SCREEN WITH P24 (03/28/2019 12: 25 PM CDT) Pathologist [facility] HIV 1/2 AG/AB NON-REACTIVE Nonreactive [facility] Specimen Blood - VENOUS Performing Organization Address [facility] Phone Number [facility] CLIA: [id number], [address] [place] [address] documented in this encounter Visit Diagnoses Diagnosis Annual physical exam - Primary Routine general medical examination at a health care facility Referral of patient Referral of patient without examination or treatment Breast cancer screening Breast screening, unspecified Routine screening for STI (sexually transmitted infection) Screening examination for venereal disease Encounter for screening for other viral diseases Other jail (current) drug therapy Anemia, unspecified type Arthralgia, unspecified joint documented in this encounter Insurance Payer Benefit Plan / Subscriber ID Effective Phone Address Type Group Dates [facility] [id number] 2017-Pres Medicare HEALTHCARE - HEALTHCARE ent Adv HMO MANAGED DUAL COMPLETE MEDICARE HMO [place] MEDICAID OF xxxxxxxxx 2019-Pres [phone] Medicaid [place] ent [id number] [place] [address] documented as of this encounter
--- OUTSIDE RECORDS SUMMARY | 2019-04-12 08:15 | XMS REPORT | Summary of Care ---
:1980 Author Organization [facility] - [facility] Address [address] [place] [address] Care Team Providers Name Role Phone Kwesi [...] BY VASCULAR KILEY Lynn MD [address] [facility] [address] [place] [address] (Routine) Status Reason Specialty Diagnoses / Procedures Referred By Contact Referred To Contact Closed Cardiology Diagnoses Essential hypertension Rose, Sendil Procedures CAROTID DUPLEX BILATERAL BY VASCULAR KILEY Lynn MD [address] [facility] [address] [place] [address] Reason for Visit Reason Comments Follow-up 6 weeks Encounter Details Date Type Department Care Team Description 03/10/2019 Office Visit [facility] Rose, Sendil Essential hypertension ( Primary Dx); Cardiology- Kenya Lynn MD LANE (dyspnea on exertion); [address] [place] [address] [address] Hb-SS disease with crisis; Drive, [address] History of CVA (cerebrovascular accident); [place], [place] Uncontrolled hypertension [phone] Allergies Active [...] Rose MD - 03/10/2019 2:00 PM CDT [facility] Cardiology Consult Note Patient: Brennon Duffy Date [...] the last OV, she was admitted in [facility] for sickle cell anemia/atypical chest pain. LAEN NYHA Class II-III. Reports atypical chest pain at rest not worsening with exertion. History of SCD and multiple admission in [facility] for sickle cell crisis. [facility] records reviewed. No PND or orthopnea. No pedal edema. No exertional palpitations or palpitations at rest. No syncopalattacks. Risk factors: Hx of CVA with right sided deficits, History of MD noted in her chart (upon records review: noted to have elevated trop in 2015 & 2016: No stress test noted. Only RHC as below). 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 Has port a cath currently Cardiac records from [facility] records reviewed Echo 10/2017 Summary The [...] file Gets together: Not on file Attends jew service: Not on file Active member of [...] statisfcationin the answers given. We reviewed the [employer] recommendations for reduction of overall [...] feel free to call our office at [phone]. I would be happy to be of further assistance for Brennon Duffy wellbeing. Jermaine Rose MD Intervention Analyst, Division of Cardiology [facility] documented in this encounter Plan of Treatment Date Type Specialty Care Team Description 03/28/2019 Office Visit Family Medicine Jayson Jay MD [address] [place] [address] [place] [address] 07/11/2019 Office Visit Cardiology Rell Rose MD [address] [facility] [address] [place] [phone] Health Maintenance Due Date Last Done Comments [...] ID Effective Phone Address Type Group Dates [facility] [id number] 2017-Pres Medicare HEALTHCARE - HEALTHCARE ent Adv HMO MANAGED DUAL COMPLETE MEDICARE HMO [facility] MEDICAID OF xxxxxxxxx 2019-Pres [phone] Medicaid [place] ent [id number] [place] [address] documented as of this encounter
--- OUTSIDE RECORDS SUMMARY | 2019-04-12 08:16 | XMS REPORT | Summary of Care ---
:1980 Author Organization [facility] Address [address] [place] [address] Care Team Providers Name Role Phone Kwesi Guaman Unavailable Unavailable Jayson Jay MD Primary Care Provider Reason for Visit Reason Comments Orders Encounter Details Date Type Department Care Team Description 03/28/2019 Telephone [facility] Jayson Jay MD Orders - [address] [address] [place] [address] Allergies Active Allergy Reactions Severity Noted Date [...] as of this encounter (statuses as of 03/31/2019) Medications Medication Sig Dispensed Refills Start Date End Date Status triamcinolone 0 10/27/2015 Active acetonide (KENALOG) 0.1 % ointment proMETHazine 0 10/12/2015 Active (PHENERGAN) 25 mg tablet ibuprofen (MOTRIN) 600 0 10/12/2015 Active mg tablet HYDROcodone-acetaminop Take 2 tablets by 0 11/10/2015 Active hen (NORCO) 10-325 mg mouth 4 (four) tablet times daily. foLIC acid (FOLATE) 1 Take 1 mg [...] mouth daily. (dyspnea on exertion), Essential hypertension documented as of this encounter (statuses as of 03/31/2019) Active Problems Problem Noted Date Obesity (BMI 30-39.9) 01/30/2019 Atypical chest pain 01/28/2019 LANE (dyspnea on exertion) 01/27/2019 Sickle cell pain crisis 01/27/2019 History of acute myocardial infarction 07/08/2017 History of CVA (cerebrovascular accident) 07/08/2017 Anxiety Depression Hypertension Seizures Sickle cell anemia documented as of this encounter (statuses as of 03/31/2019) Resolved Problems Problem Noted Date Resolved Date Foot pain, right 11/29/2015 07/08/2017 documented as of this encounter (statuses as of 03/31/2019) Social History Tobacco Use Types Packs/Day Years [...] Rose MD [address] [place] [phone] Health Maintenance Due Date Last Done Comments PAP SMEAR 2000 MAMMOGRAM 2019 INFLUENZA VACCINE 04/20/2019 DTaP,Tdap,and Td Vaccines (1 - 03/30/2020 Postponed from 1998 Tdap) (Patient Refused) PNEUMOCOCCAL 0-64 YEARS COMBINED 03/30/2020 Postponed from 1985 SERIES (1 of 3 - PCV13) (Patient Refused) documented as of this encounter Results Not on filedocumented in this encounter Insurance Payer Benefit Plan / Subscriber ID Effective Phone Address Type Group [facility] [id number] 2017-Pres Medicare HEALTHCARE - HEALTHCARE ent Adv HMO MANAGED DUAL COMPLETE MEDICARE HMO [facility] MEDICAID OF xxxxxxxxx 2019-Pres [phone] Medicaid [place] ent [id number] [place] [address] documented as of this encounter
--- OUTSIDE RECORDS SUMMARY | 2019-04-12 08:16 | XMS REPORT | Summary of Care ---
:1980 Author Organization [facility] Address [address] [place] [address] Care Team Providers Name Role Phone Kwesi Guaman Unavailable Unavailable Jayson Jay MD Primary Care Provider Reason for Visit Reason Comments Notification Encounter Details Date Type Department Care Team Description 04/08/2019 Telephone [facility] Family Medicine Jayson Jay MD Notification - [address] [address] [place] [address] Allergies Active Allergy Reactions Severity [...] as of this encounter (statuses as of 04/08/2019) Medications Medication Sig Dispensed Refills Start Date [...] as of this encounter (statuses as of 04/08/2019) Active Problems Problem Noted Date Obesity (BMI 30-39.9) 01/30/2019 Atypical chest pain 01/28/2019 LANE (dyspnea on exertion) 01/27/2019 Sickle cell pain crisis 01/27/2019 History of acute myocardial infarction 07/08/2017 History of CVA (cerebrovascular accident) 07/08/2017 Anxiety Depression Hypertension Seizures Sickle cell anemia documented as of this encounter (statuses as of 04/08/2019) Resolved Problems Problem Noted Date Resolved Date Foot pain, right 11/29/2015 07/08/2017 documented as of this encounter (statuses as of 04/08/2019) Social History Tobacco Use Types Packs/Day Years [...] Rose MD [address] [place] [phone] Health Maintenance Due Date Last Done Comments PAP SMEAR 2000 MAMMOGRAM 2019 INFLUENZA VACCINE (#1) 2019 DTaP,Tdap,and Td Vaccines (1 - 03/30/2020 Postponed from 1998 Tdap) (Patient Refused) PNEUMOCOCCAL 0-64 YEARS COMBINED 03/30/2020 Postponed from 1985 SERIES (1 of 3 - PCV13) (Patient Refused) documented as of this encounter Results Not on filedocumented in this encounter Insurance Payer Benefit Plan / Subscriber ID Effective Phone Address Type Group Dates [facility] [id number] 2017-Pres Medicare HEALTHCARE - HEALTHCARE ent Adv HMO MANAGED DUAL COMPLETE MEDICARE HMO [facility] MEDICAID OF xxxxxxxxx 2019-Pres [phone] Medicaid [place] ent [id number] [place] [address] documented as of this encounter
[2019-04-12] MEDS ORDERED: PROMETHAZINE 25 MG/ML VIAL ONE ×2 (09:02→10:52)
[2019-04-12] MEDS ORDERED: DIPHENHYDRAMINE 50 MG/ML VIAL ONE ×2 (09:03→10:52)
[2019-04-12] MEDS ORDERED: HYDROMORPHONE HCL 1 MG/ML INJ ONE ×2 (09:03→10:52)
[2019-04-12] MEDS ORDERED: FOLIC ACID 5 MG/ML VIAL ONE (09:04)
[2019-04-12] MEDS ORDERED: NA CHLORIDE 0.9% 2,000 ML ONE (09:04)
[2019-04-12 09:11] LABS: Urine Blood TRACE (NEG); Urine Glucose NEGATIVE (NEG); Urine Protein NEGATIVE (NEG); Urine Specific Gravity 1.015 (1.005-1.030)
[2019-04-12 09:56] LABS: Protime INR 1.11
[2019-04-12 09:57] LABS: Absolute Lymphocytes (CBC) 4.9 K/uL (0.7-4.9); Basophils % 2.9 % (0-1.3); Hematocrit 21.7 % (36.0-45.0); Lymphocytes % 30.2 % (15.3-44.8); MPV 8.7 fL (7.6-11.3); RBC Red Blood Cell Count 2.12 M/uL (3.86-4.86)
[2019-04-12 10:11] LABS: ALT/SGPT 93 U/L (12-78); AST/SGOT 158 U/L (15-37); Albumin 3.6 g/dL (3.4-5.0); Alkaline Phosphatase 225 U/L (45-117); BUN Blood Urea Nitrogen 20 mg/dL (7-18); Bicarbonate 24 mmol/L (21-32); Bilirubin Total 2.8 mg/dL (0.2-1.0); Glucose Level 90 mg/dL (74-106); Lipase 180 U/L (73-393); Magnesium 2.1 mg/dL (1.8-2.4); NT PRO-BNP 79 pg/mL (<125); Potassium 4.9 mmol/L (3.5-5.1); Protein, Total 10.1 g/dL (6.4-8.2); Sodium Level 139 mmol/L (136-145); Troponin (Emerg Dept Use Only) < 0.02 ng/mL (0.0-0.045)
--- NOTE | 2019-04-12 10:53 | ER ---
Nurse's Notes [facility] Name: Brennon Berg Age: 39 yrs Sex: Female : 1980 Arrival Date: 04/12/2019 Time: 08:17 Bed 17 Private MD: Diagnosis: Chest pain, unspecified;Sickle-cell/Hb-C disease with crisis;Anemia, unspecified Presentation: 04/12 08:09 Presenting complaint: EMS states: Pt. is A \\T\\ O x 4, has history of Sickle cell and is rb1 out of her pain medications. BP 163/108, P 86, 99% RA. Transition of care: patient was not received from another setting of care. Onset of symptoms was April 12, 2019. Risk Assessment: Do you want to hurt yourself or someone else? Patient reports no desire to harm self or others. 08:09 Method Of Arrival: EMS: [facility] 08:09 Acuity: TEMI 3 rb1 08:09 Initial Sepsis Screen: Does the patient meet any 2 criteria? No. Patient's initial rb1 sepsis screen is negative. Does the patient have a suspected source of infection? No. Patient's initial sepsis screen is negative. Triage Assessment: 08:09 General: Appears uncomfortable, Behavior is anxious, Denies fever. Pain: Complains of rb1 pain in generalized Pain currently is 10 out of 10 on a pain scale. Neuro: Level of Consciousness is awake, alert, obeys commands, Oriented to person, place, time, situation. Cardiovascular: Capillary refill < 3 seconds is brisk in bilateral fingers. Respiratory: Airway is patent Respiratory effort is even, unlabored, Respiratory pattern is regular, symmetrical. GI: No signs and/or symptoms were reported involving the gastrointestinal system. : No signs and/or symptoms were reported regarding the genitourinary system. Derm: Skin is dry, Skin is normal, Skin temperature is warm. Musculoskeletal: Range of motion: limited in left arm. SNAP SHEARER: 08:09 LMP N/A - Hysterectomy rb1 Historical: - Allergies: 08:09 Fentanyl; rb1 08:09 Morphine; rb1 08:09 Reglan; rb1 08:09 Stadol; rb1 08:09 Toradol; rb1 08:09 tramadol; rb1 08:09 Trazodone; rb1 08:09 Ultram; rb1 08:09 Zofran; rb1 - Home Meds: 08:09 gabapentin 300 mg Oral cap 1 cap 3 times per day [Active]; Hydrea 500 mg Oral cap TID rb1 [Active]; hydrocodone-acetaminophen 10-325 mg Oral tab [Active]; hydroxyurea 500 mg Oral cap 1 cap every 3 days [Active]; Keppra 250 mg Oral tab 1 tabs 2 times per day [Active]; promethazine 25 mg Oral tab as needed [Active]; Xanax 2 mg Oral tab 2 times a day [Active]; - PMHx: 08:09 aplastic anemia; CVA; L sided weakness; Myocardial infarction; 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 - Social history:: Smoking status: Patient/guardian denies using tobacco. - Ebola Screening: : Patient negative for fever greater than or equal to 101.5 degrees Fahrenheit, and additional compatible Ebola Virus Disease symptoms. - Family history:: not pertinent. Screenin:09 Abuse screen: Denies threats or abuse. Nutritional screening: No deficits noted. rb1 Tuberculosis screening: No symptoms or risk factors identified. Fall Risk None identified. Assessment: 09:00 General: Appears uncomfortable, Behavior is cooperative, restless, Denies fever. Pain: em Complains of pain in "all over" Pain currently is 10 out of 10 on a pain scale. Neuro: Level of Consciousness is awake, alert, obeys commands, Oriented to person, place, time, situation. Cardiovascular: Reports chest pain, nausea, shortness of breath, Capillary refill < 3 seconds Patient's skin is warm and dry. Respiratory: Airway is patent Respiratory effort is even, unlabored, Respiratory pattern is regular, symmetrical. GI: Abdomen is flat, Reports nausea, vomiting. Derm: Skin is intact, is healthy with good turgor, Skin is pink, warm \\T\\ dry. Musculoskeletal: Capillary refill < 3 seconds, Range of motion: limited in left elbow and left wrist. 10:04 Reassessment: Patient appears in no apparent distress at this time. Patient and/or em family updated on plan of care and expected duration. Pain level reassessed. Patient is alert, oriented x 3, equal unlabored respirations, skin warm/dry/pink. Patient states feeling better. Patient states symptoms have improved. 11:55 Reassessment: Patient appears in no apparent distress at this time. Dr. Osorio at em bedside. 12:05 Reassessment: Patient appears in no apparent distress at this time. request lunch tray em and apple juice, tray ordered. 12:37 Reassessment: unable to give report at this time due to room being dirty. em 12:44 Reassessment: Patient appears in no apparent distress at this time. lunch tray em delivered. 14:12 Reassessment: notified household appliances service technician of nurse unavailability to take report, house em supervisor patching will bring pt to floor. 14:25 Reassessment: Gave report to NIKKI Gonzalez. Information from the SBAR was given. All [facility] questions asked and answered. Vital Signs: 08:09 BP 136 / 93; Pulse 86; Resp 20; Temp 98.5(O); Pulse Ox 100% on R/A; Weight 77.11 kg rb1 (R); Height 5 ft. 3 in. (160.02 cm) (R); Pain 10/10; 09:35 BP 138 / 110; Pulse 89; Resp 20; Pulse Ox 100% on 2 lpm NC; em 10:04 BP 128 / 96; Pulse 75; Resp 18; Pulse Ox 99% on 2 lpm NC; Pain 8/10; em 12:19 BP 145 / 104; Pulse 75; Resp 18; Pulse Ox 100% ; Pain 9/10; ms 08:09 Body Mass Index 30.11 (77.11 kg, 160.02 cm) rb1 12:19 Pt Playing on her phone but coplains of pain 9/10 ms ED Course: 08:09 Arm band placed on right wrist. rb1 08:09 Patient has correct armband on for positive identification. Bed in low position. Call rb1 light in reach. Side rails up X2. Pulse ox on. NIBP on. 08:17 Patient arrived in ED. ss 08:18 Joann Priest, RN is Primary Nurse. rb1 08:21 Triage completed. rb1 08:28 Spenser Luis MD is Attending Physician. anupam 08:56 Salvador Escalona LVN is Primary Nurse. em 09:30 Accessed Port-a-Cath. using accessed w/ # 20 Brasher needle, ,sterile technique, per [facility] protocol. Clean \\T\\ dry. Dressing intact. Good blood return. Flushes easily. inserted by Kasi Trammell RN. 09:54 Urine collected: clean catch specimen, clear, EKG done, by ED staff, reviewed by Spenser Luis MD. 09:56 XRAY Chest (1 view) In Process Unspecified. EDMS 10:49 Manny Osorio MD is Hospitalizing Provider. anupam Administered Medications: 09:30 Drug: NS 0.9% 1000 ml Route: IV; Rate: 1 bolus; Site: Port-a-cath; ss 12:38 Follow up: IV Status: Completed infusion; IV Intake: 1000ml em 09:31 Drug: NS 0.9% 1000 ml Route: IV; Rate: 125 ml/hr; Site: Port-a-cath; ss 14:11 Follow up: IV Status: Infusion continued upon admission; IV Intake: 800ml em 09:32 Drug: foLIC Acid 1 mg Route: IVPB; Site: Port-a-cath; ss 10:00 Follow up: Response: No adverse reaction em 09:34 Drug: Benadryl 25 mg Route: IVP; Site: Port-a-cath; ss 10:00 Follow up: Response: No adverse reaction em 09:35 Drug: Phenergan 12.5 mg Route: IVP; Site: Port-a-cath; ss 10:00 Follow up: Response: No adverse reaction em 09:40 Drug: Dilaudid 1 mg Route: IVP; Site: Port-a-cath; ss 12:08 Follow up: Response: No adverse reaction; Pain is decreased; RASS: Alert and Calm (0) em 11:07 Drug: Phenergan 12.5 mg Route: IVP; Site: Port-a-cath; ss 11:35 Follow up: Response: No adverse reaction em 11:09 Drug: Benadryl 25 mg Route: IVP; Site: Port-a-cath; ss 11:35 Follow up: Response: No adverse reaction em 11:11 Drug: Dilaudid 1 mg Route: IVP; Site: Port-a-cath; ss 11:35 Follow up: Response: No adverse reaction; Marked relief of symptoms; Pain is decreased; em RASS: Alert and Calm (0) Intake: 12:38 IV: 1000ml; Total: 1000ml. em 14:11 IV: 800ml; Total: 1800ml. em Outcome: 10:52 Decision to Hospitalize by Provider. anupam 14:35 Patient left the ED. em Signatures: Dispatcher [employer] Spenser Joy MD MD cha Munoz, Edgar, FOOD PHOTOGRAPHER FOOD PHOTOGRAPHER em Yohana Catherine ms, Shelby, RN RN Joann Priest RN RN rb1 Corrections: (The following items were deleted from the chart) 08:45 08:09 BP 136 / 93; Resp 20bpm; Temp 98.5F Oral; 77.11 kg Reported; Height 5 ft. 3 in. rb1 Reported; BMI: 30.1; Pain 10; rb1 12:08 10:00 Response: No adverse reaction; Pain is decreased em em
--- NOTE | 2019-04-12 10:54 | EDPHYS ---
Physician Documentation [facility] Name: Brennon Berg Age: 39 yrs Sex: Female : 1980 Arrival Date: 04/12/2019 Time: 08:17 Bed 17 Private MD: ED Physician Spenser Luis HPI: 04/12 08:56 This 39 yrs old Black Female presents to ER via EMS with complaints of Pain All Over. anupam 08:56 The patient or guardian reports chest pain that is located primarily in the substernal anupam area, anterior chest wall. Onset: 2 day(s) ago. chest pain. The pain does not radiate. Onset: The symptoms/episode began/occurred 2 day(s) ago. Associated signs and symptoms: The patient has no apparent associated signs or symptoms. The chest pain is described as aching, a pressure. Modifying factors: The symptoms are alleviated by nothing. the symptoms are aggravated by nothing. 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 N/A - Hysterectomy rb1 Historical: - Allergies: 08:09 Fentanyl; rb1 08:09 Morphine; rb1 08:09 Reglan; rb1 08:09 Stadol; rb1 08:09 Toradol; rb1 08:09 tramadol; rb1 08:09 Trazodone; rb1 08:09 Ultram; rb1 08:09 Zofran; rb1 - Home Meds: 08:09 gabapentin 300 mg Oral cap 1 cap 3 times per day [Active]; Hydrea 500 mg Oral cap TID rb1 [Active]; hydrocodone-acetaminophen 10-325 mg Oral tab [Active]; hydroxyurea 500 mg Oral cap 1 cap every 3 days [Active]; Keppra 250 mg Oral tab 1 tabs 2 times per day [Active]; promethazine 25 mg Oral tab as needed [Active]; Xanax 2 mg Oral tab 2 times a day [Active]; - PMHx: 08:09 aplastic anemia; CVA; L sided weakness; Myocardial infarction; osteo to right leg 12/06; rb1 Seizures; Sickle Cell; - PSHx: 08:09 Hysterectomy; spleenectomy; right chest port a cath; rb1 - Immunization history:: Adult Immunizations up to date. - Social history:: Smoking status: Patient/guardian denies using tobacco. - Ebola Screening: : Patient negative for fever greater than or equal to 101.5 degrees Fahrenheit, and additional compatible Ebola Virus Disease symptoms. - Family history:: not pertinent. ROS: 08:56 Constitutional: Negative for fever, chills, and weight loss, Eyes: Negative for injury, anupam pain, redness, and discharge, ENT: Negative for injury, pain, and discharge, Neck: Negative for injury, pain, and swelling, Respiratory: Negative for shortness of breath, cough, wheezing, and pleuritic chest pain, Abdomen/GI: Negative for abdominal pain, nausea, vomiting, diarrhea, and constipation, Back: Negative for injury and pain, : Negative for injury, bleeding, discharge, and swelling, MS/Extremity: Negative for injury and deformity, Skin: Negative for injury, rash, and discoloration, Neuro: Negative for headache, weakness, numbness, tingling, and seizure, Psych: Negative for depression, anxiety, suicide ideation, homicidal ideation, and hallucinations, Allergy/Immunology: Negative for hives, rash, and allergies, Endocrine: Negative for neck swelling, polydipsia, polyuria, polyphagia, and marked weight changes, Hematologic/Lymphatic: Negative for swollen nodes, abnormal bleeding, and unusual bruising. 08:56 Cardiovascular: Positive for chest pain. Exam: 08:56 Constitutional: This is a well developed, well nourished patient who is awake, alert, anupam and in no acute distress. Head/Face: Normocephalic, atraumatic. Eyes: Pupils equal round and reactive to light, extra-ocular motions intact. Lids and lashes normal. Conjunctiva and sclera are non-icteric and not injected. Cornea within normal limits. Periorbital areas with no swelling, redness, or edema. ENT: Nares patent. No nasal discharge, no septal abnormalities noted. Tympanic membranes are normal and external auditory canals are clear. Oropharynx with no redness, swelling, or masses, exudates, or evidence of obstruction, uvula midline. Mucous membranes moist. Neck: Trachea midline, no thyromegaly or masses palpated, and no cervical lymphadenopathy. Supple, full range of motion without nuchal rigidity, or vertebral point tenderness. No Meningismus. Chest/axilla: Normal chest wall appearance and motion. Nontender with no deformity. No lesions are appreciated. Cardiovascular: Regular rate and rhythm with a normal S1 and S2. No gallops, murmurs, or rubs. Normal PMI, no JVD. No pulse deficits. Respiratory: Lungs have equal breath sounds bilaterally, clear to auscultation and percussion. No rales, rhonchi or wheezes noted. No increased work of breathing, no retractions or nasal flaring. Abdomen/GI: Soft, non-tender, with normal bowel sounds. No distension or tympany. No guarding or rebound. No evidence of tenderness throughout. Back: No spinal tenderness. No costovertebral tenderness. Full range of motion. Skin: Warm, dry with normal turgor. Normal color with no rashes, no lesions, and no evidence of cellulitis. MS/ Extremity: Pulses equal, no cyanosis. Neurovascular intact. Full, normal range of motion. Neuro: Awake and alert, GCS 15, oriented to person, place, time, and situation. Cranial nerves II-XII grossly intact. Motor strength 5/5 in all extremities. Sensory grossly intact. Cerebellar exam normal. Normal gait. Psych: Awake, alert, with orientation to person, place and time. Behavior, mood, and affect are within normal limits. Vital Signs: 08:09 BP 136 / 93; Pulse 86; Resp 20; Temp 98.5(O); Pulse Ox 100% on R/A; Weight 77.11 kg rb1 (R); Height 5 ft. 3 in. (160.02 cm) (R); Pain 10/10; 09:35 BP 138 / 110; Pulse 89; Resp 20; Pulse Ox 100% on 2 lpm NC; em 10:04 BP 128 / 96; Pulse 75; Resp 18; Pulse Ox 99% on 2 lpm NC; Pain 8/10; em 12:19 BP 145 / 104; Pulse 75; Resp 18; Pulse Ox 100% ; Pain 9/10; ms 08:09 Body Mass Index 30.11 (77.11 kg, 160.02 cm) rb1 12:19 Pt Playing on her phone but coplains of pain 9/10 ms MDM: 08:28 Patient medically screened. [facility] 08:59 Data reviewed: vital signs, nurses notes, lab test result(s), EKG, radiologic studies, anupam plain films. 04/12 08:56 Order name: Basic Metabolic Panel; Complete Time: 10:44 [facility] 04/12 08:56 Order name: CBC with Diff [facility] 04/12 08:56 Order name: LFT's; Complete Time: 10:44 [facility] 04/12 08:56 Order name: Magnesium; Complete Time: 10:44 [facility] 04/12 08:56 Order name: NT PRO-BNP; Complete Time: 10:44 [facility] 04/12 08:56 Order name: PT-INR; Complete Time: 10:44 [facility] 04/12 08:56 Order name: Troponin (emerg Dept Use Only); Complete Time: 10:44 [facility] 04/12 08:56 Order name: Retic Count [facility] 04/12 08:56 Order name: Type And Screen [facility] 04/12 08:56 Order name: Urine Culture [facility] 04/12 08:56 Order name: Lipase; Complete Time: 10:44 [facility] 04/12 08:57 Order name: Urine Dipstick--Ancillary (enter results); Complete Time: 10:44 04/12 08:57 Order name: Test Urine - POC; Complete Time: 10:44 04/12 10:56 Order name: Antibody Identification [facility] 04/12 08:56 Order name: XRAY Chest (1 view) [facility] 04/12 08:56 Order name: EKG; Complete Time: 08:59 [facility] 04/12 08:56 Order name: Cardiac monitoring; Complete Time: 08:56 [facility] 04/12 08:56 Order name: EKG - Nurse/Tech; Complete Time: 09:54 [facility] 04/12 08:56 Order name: IV Saline Lock; Complete Time: 09:54 [facility] 04/12 12:07 Order name: Diet Regular; Complete Time: 12:09 04/12 12:16 Order name: Manual Differential [facility] 04/12 08:56 Order name: Labs collected and sent; Complete Time: 08:57 [facility] 04/12 08:56 Order name: O2 Per Protocol; Complete Time: 08:56 [facility] 04/12 08:56 Order name: O2 Sat Monitoring; Complete Time: 08:56 [facility] 04/12 08:56 Order name: Urine Dipstick-Ancillary (obtain specimen); Complete Time: 08:58 [facility] 04/12 08:56 Order name: Oxygen; Complete Time: 08:56 [facility] Administered Medications: 09:30 Drug: NS 0.9% 1000 ml Route: IV; Rate: 1 bolus; Site: Port-a-cath; 12:38 Follow up: IV Status: Completed infusion; IV Intake: 1000ml em 09:31 Drug: NS 0.9% 1000 ml Route: IV; Rate: 125 ml/hr; Site: Port-a-cath; ss 14:11 Follow up: IV Status: Infusion continued upon admission; IV Intake: 800ml em 09:32 Drug: foLIC Acid 1 mg Route: IVPB; Site: Port-a-cath; ss 10:00 Follow up: Response: No adverse reaction em 09:34 Drug: Benadryl 25 mg Route: IVP; Site: Port-a-cath; ss 10:00 Follow up: Response: No adverse reaction em 09:35 Drug: Phenergan 12.5 mg Route: IVP; Site: Port-a-cath; ss 10:00 Follow up: Response: No adverse reaction em 09:40 Drug: Dilaudid 1 mg Route: IVP; Site: Port-a-cath; ss 12:08 Follow up: Response: No adverse reaction; Pain is decreased; RASS: Alert and Calm (0) em 11:07 Drug: Phenergan 12.5 mg Route: IVP; Site: Port-a-cath; ss 11:35 Follow up: Response: No adverse reaction em 11:09 Drug: Benadryl 25 mg Route: IVP; Site: Port-a-cath; ss 11:35 Follow up: Response: No adverse reaction em 11:11 Drug: Dilaudid 1 mg Route: IVP; Site: Port-a-cath; ss 11:35 Follow up: Response: No adverse reaction; Marked relief of symptoms; Pain is decreased; em RASS: Alert and Calm (0) Disposition: 04/12/19 10:52 Hospitalization ordered by Manny Osorio for Inpatient Admission. Preliminary diagnosis are Chest pain, unspecified, Sickle-cell/Hb-C disease with crisis, Anemia, unspecified. - Bed requested for Telemetry/MedSurg (Inpatient). - Status is Inpatient Admission. em - Condition is Stable. - Problem is new. - Symptoms have improved. UTI on Admission? No Signatures: Dispatcher [employer] EDSpenser Vazquez MD MD cha Pinkerton, Shawna sp Munoz, Edgar, [employer] CONSULTANT [employer] CONSULTANT em Ivone Coto RN RN ss Joann Priest RN RN rb1 Corrections: (The following items were deleted from the chart) 12:09 10:52 Hospitalization Ordered by Manny Osorio MD for Inpatient Admission. Preliminary sp diagnosis is Chest pain, unspecified; Sickle-cell/Hb-C disease with crisis; Anemia, unspecified. Bed requested for Telemetry/MedSurg (Inpatient). Status is Inpatient Admission. Condition is Stable. Problem is new. Symptoms have improved. UTI on Admission? No. anupam 14:35 12:09 04/12/2019 10:52 Hospitalization Ordered by Manny Osorio MD for Inpatient em Admission. Preliminary diagnosis is Chest pain, unspecified; Sickle-cell/Hb-C disease with crisis; Anemia, unspecified. Bed requested for Telemetry/MedSurg (Inpatient). Status is Inpatient Admission. Condition is Stable. Problem is new. Symptoms have improved. UTI on Admission? No. sp
--- NOTE | 2019-04-12 11:18 | RAD REPORT ---
EXAM DESCRIPTION: RAD - Chest Single View - 04/12/2019 9:51 am CLINICAL HISTORY: Chest pain, sickle cell disease COMPARISON: March 16 TECHNIQUE: AP portable chest image was obtained 0943 hours . FINDINGS: Lung volumes are low. This accentuates the baseline interstitial pattern. No peripheral ma ss or consolidation. No significant failure or volume overload. Right-sided Port-A-Cath remains in pl noe. Cardiac silhouette is enlarged similar to comparison. Vasculature is accentuated by the shallow inspiration. No measurable pleural effusion and no pneumothorax. No acute bony abnormality seen. No a cute aortic findings suspected. IMPRESSION: Limited shallow inspiration film not substantially different from comparison. No focal consolidation and no significant failure or volume overload.
[2019-04-12 12:14] LABS: Anisocytosis 2+; Blood Morphology Comment NOTED (NOT SEEN); Platelet Estimate ADEQ
[2019-04-12] MEDS ORDERED: ACETAMINOPHEN 500 MG TAB PO PRN (14:34)
[2019-04-12] MEDS: HYDROMORPHONE HCL 2 MG/ML inj IV PRN ×3 (14:54→23:27)
[2019-04-12] MEDS: DIPHENHYDRAMINE 25 MG TAB/CAP PO PRN ×2 (14:55→23:41)
[2019-04-12] MEDS: PROMETHAZINE 25 MG/ML VIAL IV PRN ×3 (14:55→23:28)
[2019-04-12] MEDS: NA CHLORIDE 0.9% 1,000 ML IV SCH ×2 (14:55→23:28)
--- NOTE | 2019-04-12 15:21 | HP ---
Date of Admission: 04/12/2019 Chief Complaint: Chest pain, shortness of breath. History Of Present Illness: Patient is a 39-year-old female with past medical history of sickle cell disease, hypertension, coronary artery disease, well known to the hospitalist service for sickle román l crisis and recurrent admissions. Last admission was on 03/16/2019. Patient states that since she has turned 39, her sickle cell crisis have been more frequent and more severe. Patient is scheduled to see her pool installer on in [place]. Patient states she has pain all over. Reports some shortness of breath. Her symptoms are constant, moderate, progressively worsening. Her workup revea led hemoglobin of 7.4, which is around her baseline. Her cardiac troponin level was negative. UA wa s also negative. test was also negative. Chest x-ray did not show any acute changes. No volume overload. Patient was then referred for admission. Past Medical History: Sickle cell disease, history of CVA, coronary artery disease, hypertension, se izure disorder, insomnia, history of endocarditis, anxiety disorder, chronic pain syndrome. Past Surgical History: Right axillary lumpectomy, splenectomy, cholecystectomy, partial hysterectomy , 6 Port-A-Cath, 6 PICC, . Allergies: ZOFRAN, DILAUDID, TRAMADOL, TRAZODONE, REGLAN, MORPHINE, FENTANYL, TORADOL, AND STADOL AL L CAUSES SEIZURES. Medications: List reviewed. Social History: Patient denies any tobacco use or alcohol use. Lives at home. Patient is , has 2 kids. Has 2 children. Family History: Father has heart disease and hypertension. Mother also has hypertension. Review of Systems: Ten-point system reviewed, negative except as per HPI. Physical Examination: Vital Signs: Blood pressure 136/93, pulse 86, respirations 20, temperature 98.5, O2 of 100% on room air. General: Awake, alert, oriented x3, ill-appearing female in moderate distress due to pain. HEENT: Normocephalic, atraumatic. PERRLA. EOMI. Moist mucous membranes. Poor dentition. Conjunc tivae anicteric. Neck: Supple. No JVD. Trachea midline. CV: S1, S2. Regular rate and rhythm. Peripheral pulses present. Respiratory: Patient is slightly tachypneic. No use of accessory muscles. Moving air well bilatera lly. No wheezing or stridor. Gastrointestinal: Abdomen is soft, nontender, nondistended. Positive bowel sounds. No guarding or rigidity. Patient does have hepatomegaly. Extremities: No clubbing, cyanosis, or edema. Neurologic: Nonfocal. Cranial nerves 2 through 12 intact grossly. Patient does have contracture of the left upper extremity. Speech is normal. Laboratory Data: UA is negative. test negative. Sodium 139, potassium 4.9, chloride 107, CO2 of 24, BUN 20, creatinine 0.6. Glucose 90, calcium 9, magnesium 2.1. Total bilirubin 2.8, AST 158, ALT 93, alkaline phosphatase 225. Troponin less than 0.02, albumin 3.6, lipase 180. INR 1.11. WBC 16.3, H and H of 7.4 and 21.7, platelets 250, neutrophils 54%. Chest x-ray shows limited shallo w inspiration film not substantially different from comparison. No focal consolidation and no signif icant failure or volume overload. Assessment: 1.Sickle cell crisis. We will continue with pain medications. Patient apparently has allergies to morphine, Toradol, fentanyl and Stadol, all with seizure as a side effect. This is highly unusual. However, the only medications the patient is able to take is Dilaudid. Patient also requesting Phene rgan, as she is allergic to Zofran. Patient may have some pain seeking symptoms there. We will cont inue with IV fluids. We will watch for acute chest syndrome. 2.Sickle cell disease. Patient follows with pool installer in [place], has an appointment on next week. Patient's hemoglobin is around baseline. We will order type and screen. Monitor H and H, transfuse as needed. 3.Essential hypertension, uncontrolled. We will resume home medications. 4.Coronary artery disease, [place] artery and [place] heart without angina, stable. 5.Chronic pain syndrome. 6.Generalized anxiety disorder. 7.Seizure disorder. 8.Deep vein thrombosis prophylaxis with SCDs. Plan: Admit the patient [facility]Surg[facility]. JOSEPH Voice ID: [id number]
[2019-04-12 15:36] VITALS: BMI 30.1
--- NOTE | 2019-04-12 15:39 | EKG ---
Test Date: 2019-04-12 Test Time: 09:49:52 [place]: MEASUREMENT RESULTS: Intervals: Rate: 76 CT: 176 QRSD: 72 QT: 432 QTc: 486 [place]: P: 59 CT: 176 QRS: 22 T: 47 INTERPRETIVE STATEMENTS: Normal sinus rhythm Moderate voltage criteria for LVH, may be normal variant Prolonged QT Abnormal ECG Compared to ECG 09/25/2018 14:03:17 Left ventricular hypertrophy now present Prolonged QT interval now present Atrial premature complex(es) no longer present Electronically Signed On 04-12-19 15:38:31 CDT by Javid Randhawa
[2019-04-13] MEDS: HYDROMORPHONE HCL 2 MG/ML inj IV PRN ×6 (03:08→20:55)
[2019-04-13] MEDS: PROMETHAZINE 25 MG/ML VIAL IV PRN ×5 (03:08→18:45)
[2019-04-13] MEDS: NA CHLORIDE 0.9% 1,000 ML IV SCH ×3 (07:01→18:58)
[2019-04-13 07:07] LABS: Absolute Lymphocytes (CBC) 6.7 K/uL (0.7-4.9); Basophils % 1.1 % (0-1.3); Hematocrit 17.8 % (36.0-45.0); Lymphocytes % 33.3 % (15.3-44.8); MPV 8.5 fL (7.6-11.3); RBC Red Blood Cell Count 1.74 M/uL (3.86-4.86)
[2019-04-13 07:11] LABS: ALT/SGPT 79 U/L (12-78); AST/SGOT 145 U/L (15-37); Albumin 3.4 g/dL (3.4-5.0); Alkaline Phosphatase 207 U/L (45-117); BUN Blood Urea Nitrogen 15 mg/dL (7-18); Bicarbonate 26 mmol/L (21-32); Bilirubin Total 2.5 mg/dL (0.2-1.0); Glucose Level 93 mg/dL (74-106); Potassium 4.5 mmol/L (3.5-5.1); Protein, Total 8.6 g/dL (6.4-8.2); Sodium Level 140 mmol/L (136-145)
[2019-04-13 07:56] LABS: Anisocytosis 2+; Blood Morphology Comment NOTED (NOT SEEN); Elliptocytes 1+; Macrocytosis 1+; Platelet Estimate ADEQ
[2019-04-13 07:57] LABS: Rouleau NOTED
[2019-04-13] MEDS ORDERED: FUROSEMIDE 20 MG/ 2ML VIAL IV ONE ×2 (08:00→19:00)
[2019-04-13] MEDS: AMLODIPINE 2.5 MG TAB PO SCH ×2 (10:00→20:50)
[2019-04-13] MEDS: GABAPENTIN 300 MG CAP PO SCH ×3 (10:28→20:50)
[2019-04-13] MEDS: HYDROCODONE/APAP 10/325 TAB PO PRN ×3 (12:27→23:56)
--- NOTE | 2019-04-13 13:52 | PN ---
Date of Progress Note: 04/13/2019 Subjective: Patient seen and examined. Chart reviewed and case discussed with RN. Patient still co ntinues to have significant amount of pain. Also reporting some lesion on her right foot. Medications: List reviewed. Physical Examination: Vital Signs: Temperature 97, heart rate 96, blood pressure 138/69, respirations 18, O2 95% on 2 L vi a nasal cannula. General: Awake, alert, oriented x3, ill-appearing female, in mild distress due to pain. CV: S1, S2. Regular rate and rhythm. Peripheral pulses present. Respiratory: Moving air well bilaterally. No wheezing. Gastrointestinal: Abdomen is soft, nondistended. Positive bowel sounds. Patient does have some thy romegaly. Extremities: No clubbing, cyanosis, or edema. Neuro: Patient has contracture of the left upper extremity. Skin: No rashes, normal skin turgor. Laboratory Data: Sodium 140, potassium 4.5, chloride 109, CO2 26, BUN 15, creatinine 0.57, glucose 9 3, calcium 8.8, total bilirubin 2.5, AST 145, ALT 79, alkaline phosphatase 207, albumin 3.4, total pr otein 8.6. WBC 20.1, H and H 5.9 and 17.8, platelets 220. Neutrophils 44.9%. Urine culture growing mixed valentino. Assessment: 39-year-old female with; 1.Sickle cell crisis, acute. We will adjust pain medications. We will add [place] for breakthrough p ain. Patient is still having significant amount of symptoms and still having shortness of breath req uiring supplemental oxygen. We will decrease rate of IV fluids. No acute chest syndrome at this kalina e. 2.Sickle cell disease. Hemoglobin dropped to 5.9, may be partly dilutional. We will transfuse 1 un it of PRBC and give Lasix 20 mg IV post transfusion. 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 3.Essential hypertension, not well controlled. We will continue with home medications and p.r.n. if greater than 160. 4.Coronary artery disease, [place] artery and [place] heart without angina, stable. 5.Chronic pain syndrome, on chronic narcotics. 6.Generalized anxiety disorder. Patient takes benzodiazepines. 7.Seizure disorder. 8.Elevated liver enzymes, chronic. 9.Deep venous thrombosis prophylaxis with SCDs. Plan: Continue pain medications, have been adjusted. Adjust IV fluid rate likely. We will discharg e in the next 24-48 hours depending on clinical response. /RAUDEL Voice ID: [id number] Report ID: [id number]
[2019-04-13] MEDS ORDERED: NA CHLORIDE 0.9% 250 ML ONE (14:38)
[2019-04-13] MEDS: DIPHENHYDRAMINE 25 MG TAB/CAP PO PRN (14:54)
[2019-04-13 21:23] LABS: Hematocrit 21.6 % (36.0-45.0)
[2019-04-14] MEDS: HYDROMORPHONE HCL 2 MG/ML inj IV PRN ×3 (00:54→09:04)
[2019-04-14] MEDS: PROMETHAZINE 25 MG/ML VIAL IV PRN ×5 (00:55→20:35)
[2019-04-14 05:34] LABS: Absolute Lymphocytes (CBC) 6.1 K/uL (0.7-4.9); Basophils % 0.7 % (0-1.3); Lymphocytes % 31.8 % (15.3-44.8); MPV 8.4 fL (7.6-11.3); RBC Red Blood Cell Count 2.13 M/uL (3.86-4.86)
[2019-04-14 05:44] LABS: Hematocrit 19.1 % (36.0-45.0)
[2019-04-14 06:19] LABS: Albumin 3.4 g/dL (3.4-5.0); Bilirubin Total 2.7 mg/dL (0.2-1.0); Protein, Total 8.7 g/dL (6.4-8.2)
[2019-04-14 06:21] LABS: Potassium 5.6 mmol/L (3.5-5.1)
[2019-04-14] MEDS: HYDROCODONE/APAP 10/325 TAB PO PRN ×4 (07:00→23:04)
[2019-04-14] MEDS: NA CHLORIDE 0.9% 1,000 ML IV SCH ×2 (07:01→18:02)
[2019-04-14] MEDS: AMLODIPINE 2.5 MG TAB PO SCH ×2 (09:09→20:33)
[2019-04-14] MEDS: GABAPENTIN 300 MG CAP PO SCH ×3 (09:10→20:33)
[2019-04-14] MEDS ORDERED: SOD POLYSTYREN SUL 15 GM/60 ML UCUP PO ONE (11:02)
--- NOTE | 2019-04-14 13:14 | PN ---
Date of Progress Note: 04/14/2019 Subjective: Patient seen and examined. Chart reviewed and case discussed with RN. Patient still having significant amount of pain. We will try to adjust medications as tolerated. [place] was added yesterday. Medications: List reviewed. Physical Examination: Vital Signs: Temperature 97.5, heart rate 89, blood pressure 109/66, respirations 20, O2 at 99% on 2 L via nasal cannula. General: Awake, alert, oriented x3. Obese female. HEENT: Normocephalic, atraumatic, PERRLA, EOMI, moist mucous membranes. Oropharynx is clear. CV: S1, S2. Peripheral pulses present. Respiratory: Moving air well bilaterally. No wheezing or stridor, some diminished breath sounds at the bases. Extremities: No clubbing, cyanosis, or edema. Neuro: Patient has left upper extremity contracture. Laboratory Data: Sodium 140, potassium 5.6, chloride 110, CO2 of 27, BUN 21, creatinine 0.86, glucose 94, calcium 8.6, total bilirubin 2.7, AST 173, ALT 85. WBC 19, H and H 6.5, 19.1. Platelets 229, neutrophils 47%. Urine culture growing out mixed valentino. Assessment And Plan: A 39-year-old female with: 1. Sickle cell crisis, acute. The patient is still having significant amount of pain. [place] was added for breakthrough pain yesterday. We will try to wean down Dilaudid today. IV fluids have been adjusted. 2. Sickle cell disease. The patient was transfused 1 unit PRBCs yesterday. Currently, hemoglobin is 6.5. Try to avoid multiple transfusions in this patient due to developing antibodies. We will recheck H and H and transfuse if hemoglobin drops. The patient is to follow up with a bridge design engineer in [place] this week. 3. Essential hypertension, poorly controlled. We will continue with medications. 4. Coronary artery disease, [place] artery and [place] heart without angina, stable. 5. Chronic pain syndrome, on narcotics. 6. Generalized anxiety disorder, on benzodiazepines. 7. Seizure disorder. 8. Elevated liver enzymes, chronic. 9. DVT prophylaxis with SCDs. No chemical anticoagulation due to anemia. Plan: Likely discharge in the next 24 hours depending on clinical response. /RAUDEL Voice ID: [id number] Report ID: [id number] MTDD
[2019-04-14] MEDS: HYDROMORPHONE HCL 1 MG/ML INJ IV PRN ×2 (14:43→20:34)
[2019-04-15] MEDS: HYDROMORPHONE HCL 1 MG/ML INJ IV PRN ×5 (00:35→18:41)
[2019-04-15] MEDS: NA CHLORIDE 0.9% 1,000 ML IV SCH ×4 (03:00→22:33)
[2019-04-15] MEDS: HYDROCODONE/APAP 10/325 TAB PO PRN ×4 (03:18→20:09)
[2019-04-15] MEDS: PROMETHAZINE 25 MG/ML VIAL IV PRN ×4 (04:44→18:42)
[2019-04-15 06:14] LABS: Absolute Lymphocytes (CBC) 6.7 K/uL (0.7-4.9); Basophils % 0.9 % (0-1.3); Hematocrit 18.6 % (36.0-45.0); Lymphocytes % 33.4 % (15.3-44.8); MPV 8.1 fL (7.6-11.3); RBC Red Blood Cell Count 2.06 M/uL (3.86-4.86)
[2019-04-15 06:29] LABS: ALT/SGPT 89 U/L (12-78); AST/SGOT 187 U/L (15-37); Albumin 3.4 g/dL (3.4-5.0); Alkaline Phosphatase 212 U/L (45-117); BUN Blood Urea Nitrogen 13 mg/dL (7-18); Bicarbonate 29 mmol/L (21-32); Bilirubin Total 2.6 mg/dL (0.2-1.0); Glucose Level 133 mg/dL (74-106); Magnesium 1.9 mg/dL (1.8-2.4); Potassium 4.4 mmol/L (3.5-5.1); Protein, Total 8.5 g/dL (6.4-8.2); Sodium Level 142 mmol/L (136-145)
[2019-04-15] MEDS: GABAPENTIN 300 MG CAP PO SCH ×3 (08:45→20:09)
[2019-04-15] MEDS: AMLODIPINE 2.5 MG TAB PO SCH ×2 (08:45→22:33)
--- NOTE | 2019-04-15 12:59 | P.PN ---
Subjective Date of Service: 04/15/19 Subjective: Improving Patient seen and examined at bedside. No family at bedside. Chart reviewed and case discussed with nursing staff. Patient complaining of 10/10 pain. She was noted to be eating and talking/ chatting. Review of Systems 10-point ROS is otherwise unremarkable Physical Examination - Vital Signs Temperature: 96.8 F Blood Pressure: 128/71 Pulse: 91 Respirations: 20 Pulse Ox (%): 98 - Physical Exam General: Alert, In no apparent distress, Oriented x3 HEENT: Atraumatic, PERRLA, EOMI Neck: Supple, JVD not distended Respiratory: Clear to auscultation bilaterally, Normal air movement Cardiovascular: Regular rate/rhythm, Normal S1 S2 Gastrointestinal: Normal bowel sounds, No tenderness Musculoskeletal: No tenderness Integumentary: No rashes Neurological: Normal speech, Normal tone, Normal affect Lymphatics: No axilla or inguinal lymphadenopathy Assessment And Plan - Plan A 39-year-old female with: Sickle cell crisis, acute. The patient is still having pain. [place] was added for breakthrough pain. Dilaudid weaned down to Q6 hrs. Sickle cell disease. -The patient was transfused 1 unit PRBCs yesterday. Currently, hemoglobin is 6.3. We will go ahead and transfuse 1 more unit. -Try to avoid multiple transfusions in this patient due to developing antibodies. We will recheck H and H and transfuse if hemoglobin drops. The patient is to follow up with a director of acquisitions in [place] this week. -Multiple, extensive discussions were had with patient during last admission as well as today. She needs to follow up with hematology as well as pain management physician. She may benefit from other pain management regimens as well as further evaluation from hematology. She has an appointment scheduled this week. Essential hypertension, poorly controlled. -We will continue with medications. Coronary artery disease, [place] artery and [place] heart without angina, -stable. Chronic pain syndrome, -on narcotics. Generalized anxiety disorder, -on benzodiazepines. Seizure disorder. Elevated liver enzymes, chronic. DVT prophylaxis with SCDs. No chemical anticoagulation due to anemia. Plan: Likely discharge in the next 24 hours depending on clinical response Discharge Plan: Home Plan to discharge in: 24 Hours
[2019-04-15] MEDS ORDERED: NA CHLORIDE 0.9% 250 ML ONE (18:37)
[2019-04-15] MEDS: DIPHENHYDRAMINE 25 MG TAB/CAP PO PRN (18:40)
[2019-04-15] MEDS ORDERED: HYDROMORPHONE HCL 0.5 MG/0.5 ML INJ IV ONE (21:41)
[2019-04-16] MEDS: HYDROMORPHONE HCL 1 MG/ML INJ IV PRN ×5 (00:18→23:16)
[2019-04-16] MEDS: PROMETHAZINE 25 MG/ML VIAL IV PRN ×4 (00:20→16:51)
[2019-04-16 04:18] LABS: Hematocrit 21.2 % (36.0-45.0)
[2019-04-16] MEDS: NA CHLORIDE 0.9% 1,000 ML IV SCH ×3 (04:52→23:22)
[2019-04-16] MEDS: AMLODIPINE 2.5 MG TAB PO SCH ×2 (09:22→21:25)
[2019-04-16] MEDS: GABAPENTIN 300 MG CAP PO SCH ×3 (09:23→21:25)
[2019-04-16] MEDS: HYDROCODONE/APAP 10/325 TAB PO PRN ×3 (09:23→19:53)
--- NOTE | 2019-04-16 11:31 | RAD REPORT ---
EXAM DESCRIPTION: RAD - Knee Right 2 View - 04/16/2019 11:22 am CLINICAL HISTORY: Right knee pain FINDINGS: No fracture or dislocation is seen. Limited two view series obtained. Diffuse edema within the subcutaneous tissues. Small joint effusion may be present
--- NOTE | 2019-04-16 11:38 | P.PN ---
Subjective Date of Service: 04/16/19 Subjective: No new changes Patient seen and examined at bedside. No family at bedside. Chart reviewed and case discussed with nursing staff. Patient complaining of 10/10 pain. She was noted to be eating and talking/ chatting. Patient also complaining of acute right knee pain that started 1 day ago. Describes it as sharp pain and starts to buckle when she walks. She is also complaining of feeling weak. She continues request IV pain medications Review of Systems 10-point ROS is otherwise unremarkable Physical Examination - Vital Signs Temperature: 97.6 F Blood Pressure: 118/76 Pulse: 81 Respirations: 16 Pulse Ox (%): 100 - Physical Exam General: Alert, In no apparent distress, Oriented x3 HEENT: Atraumatic, PERRLA, EOMI Neck: Supple, JVD not distended Respiratory: Clear to auscultation bilaterally, Normal air movement Cardiovascular: Regular rate/rhythm, Normal S1 S2 Gastrointestinal: Normal bowel sounds, No tenderness Musculoskeletal: No swelling, No contractures, No erythema, No warmth, Tenderness (Right knee) Integumentary: No rashes Neurological: Normal speech, Normal tone, Normal affect Assessment And Plan - Plan A 39-year-old female with: Sickle cell crisis, acute. The patient is still having pain. [place] was added for breakthrough pain. Dilaudid weaned down to Q6 hrs. Sickle cell disease. -The patient was transfused 1 unit PRBCs yesterday. Currently, hemoglobin is 6.3. We will go ahead and transfuse 1 more unit. -Try to avoid multiple transfusions in this patient due to developing antibodies. We will recheck H and H and transfuse if hemoglobin drops. The patient is to follow up with a building specialist in [place] this week. -Multiple, extensive discussions were had with patient during last admission as well as this time. She needs to follow up with hematology as well as pain management physician. She may benefit from other pain management regimens as well as further evaluation from hematology. She has an appointment scheduled this week, which she rescheduled. Essential hypertension, poorly controlled. -We will continue with medications. Coronary artery disease, [place] artery and [place] heart without angina, -stable. Chronic pain syndrome, -on narcotics. Generalized anxiety disorder, -on benzodiazepines. Seizure disorder. Elevated liver enzymes, chronic. Right knee pain, acute Likely secondary to osteoarthritis versus chronic pain versus sprain versus acute fracture (less likely) Knee x-ray ordered, pending. Physical therapy evaluation DVT prophylaxis with SCDs. No chemical anticoagulation due to anemia. Plan: Likely discharge in the next 24 hours depending on clinical response Discharge Plan: Home Plan to discharge in: 24 Hours
[2019-04-16] MEDS: LIDOCAINE 5% PATCH TOP SCH (13:56)
[2019-04-17] MEDS: HYDROCODONE/APAP 10/325 TAB PO PRN ×3 (00:02→08:32)
[2019-04-17] MEDS: HYDROMORPHONE HCL 1 MG/ML INJ IV PRN ×2 (04:42→10:54)
[2019-04-17] MEDS: PROMETHAZINE 25 MG/ML VIAL IV PRN ×2 (04:43→10:54)
[2019-04-17] MEDS: NA CHLORIDE 0.9% 1,000 ML IV SCH (08:20)
[2019-04-17] MEDS: AMLODIPINE 2.5 MG TAB PO SCH (08:33)
[2019-04-17] MEDS: GABAPENTIN 300 MG CAP PO SCH ×2 (08:33→13:23)
[2019-04-17] MEDS: LIDOCAINE 5% PATCH TOP SCH (08:33)
[2019-04-17] MEDS ORDERED: HEPARIN 500 UNIT/5 ML SYR IV PRN (11:28)
[2019-04-17 11:50] VITALS: O2SAT 95
[2019-04-17 14:09] VITALS: BP 130/84; TEMP 97.8
--- NOTE | 2019-04-19 11:49 | P.DS ---
Admission Date: 04/13/19 Discharge Date: 04/17/19 Disposition: DC HOME/HOME HEALTH CARE Discharge Condition: FAIR Reason for Admission: Sickle cell crisis Procedures: 2 units PRBCs Brief History of Present Illness: Patient is a 39-year-old female with past medical history of sickle cell disease , hypertension, coronary artery disease, well known to the hospitalist service for sickle cell crisis and recurrent admissions. Last admission was on 2018. Patient states that since she has turned 39, her sickle cell crisis have been more frequent and more severe. Patient is scheduled to see her pay station attendant on in [place]. Patient states she has pain all over. Reports some shortness of breath. Her symptoms are constant, moderate, progressively worsening. Her workup revealed hemoglobin of 7.4, which is around her baseline. Her cardiac troponin level was negative. UA was also negative. test was also negative. Chest x-ray did not show any acute changes. No volume overload. Patient was then referred for admission. Hospital Course: Patient was admitted for pain crisis with sickle cell disease. She was started on IV hydration. She was provided pain control with PO medications first but as pain was not controlled she was also provided IV pain medications. It should be noted that patient would refuse any other medication, including for seizure and hydroxyurea. She would only take her IV pain medications. She was also noted to be joking/talking/animated with family members but when asked about pain or if nursing staff went into room, she would ask for IV pain medications. She did receive 2 units PRBCs and her hemoglobin was stable prior to discharge. She was recommended to follow up with outpatient pain management physician follow up for continued pain management. She was also provided 's information and was encouraged to call for appointment. She was also encouraged to follow up with a pay station attendant as as possible. She otherwise remained stable throughout the stay. Her treatment plan was explained to her and all questions were answered. She verbalized understanding. She was then discharged home in a safe and stable manner. Vital Signs/Physical Exam: Temp Pulse Resp BP Pulse Ox 97.8 F 82 18 130/84 96 04/17/19 12:04/17/19 12:00 04/17/19 12:00 04/17/19 12:04/17/19 12:00 General: Alert, In no apparent distress, Oriented x3 HEENT: Atraumatic, PERRLA, EOMI Neck: Supple, JVD not distended Respiratory: Clear to auscultation bilaterally, Normal air movement Cardiovascular: Regular rate/rhythm, Normal S1 S2 Gastrointestinal: Normal bowel sounds, No tenderness Musculoskeletal: No tenderness Integumentary: No rashes Neurological: Normal speech, Normal tone, Normal affect Lymphatics: No axilla or inguinal lymphadenopathy Laboratory Data at Discharge: WBC 19.9 K/uL (4.3-10.9) H 04/15/19 06:00 Hgb 6.9 g/dL (12.0-15.0) L* 04/16/19 00:30 Hct 21.2 % (36.0-45.0) L 04/16/19 00:30 Plt Count 233 K/uL (152-406) 04/15/19 06:00 PT 13.1 SECONDS (9.5-12.5) H 04/12/19 09:30 INR 1.11 04/12/19 09:30 Sodium 142 mmol/L (136-145) 04/15/19 06:00 Potassium 4.4 mmol/L (3.5-5.1) 04/15/19 06:00 BUN 13 mg/dL (7-18) 04/15/19 06:00 Creatinine 0.55 mg/dL (0.55-1.3) 04/15/19 06:00 Glucose 133 mg/dL (74-106) H 04/15/19 06:00 Magnesium 1.9 mg/dL (1.8-2.4) 04/15/19 06:00 Total Bilirubin 2.6 mg/dL (0.2-1.0) H 04/15/19 06:00 AST 187 U/L (15-37) H 04/15/19 06:00 ALT 89 U/L (12-78) H 04/15/19 06:00 Alkaline Phosphatase 212 U/L (45-117) H 04/15/19 06:00 Lipase 180 U/L (73-393) 04/12/19 09:30 Home Medications: ALPRAZolam [Xanax*] 2 mg PO TID PRN 03/07/17 Hydrocodone 10/APAP 325 [[place] 10/325*] 1 tab PO Q4H PRN 03/07/17 Promethazine HCl 25 mg PO Q4H PRN 03/07/17 hydrOXYzine HCl [Atarax] 50 mg PO BID PRN 03/07/17 Gabapentin 1 cap PO TID 03/16/19 Amlodipine [Norvasc*] 1 tab PO BID 04/12/19 Patient Discharge Instructions: Please follow up with your [employer] as soon as possible. Please follow up with pain management as soon as possible. Return to the Emergency room for worsening symptoms. Diet: AHA Activity: Ad beata Followup: Sanya Lopez DO [ACTIVE - CAN ADMIT] - VIRY CARRIZALES [OUTSIDE PHYSICIAN] - Time spent managing pt's care (in minutes): 55
== END 2019-04-17 14:00 | disposition home health service (06) | DRG 812 ==
LOC: ER 08:11 → ERHOLD 11:36 → OBSVTOIN 11:36 → INTOOBSV 11:36 → 2ND 14:12 → OBSVTOIN 04-13 09:35
PROVIDERS: ADMIT Family Medicine; ATTEND Family Medicine
PROC: 30233N1 Transfusion of Nonautologous Red Blood Cells into Peripheral Vein, Percutaneous Approach (ICD-10-PCS; principal; 2019-04-13)
DX: D57.00 Hb-SS disease with crisis, unspecified (principal); I69.354 Hemiplegia and hemiparesis following cerebral infarction affecting left non-dominant side; I25.10 Atherosclerotic heart disease of native coronary artery without angina pectoris; I11.9 Hypertensive heart disease without heart failure; G89.4 Chronic pain syndrome; F41.1 Generalized anxiety disorder; G40.909 Epilepsy, unspecified, not intractable, without status epilepticus; R74.8 Abnormal levels of other serum enzymes; M25.561 Pain in right knee
CPT/HCPCS: 36415; 36430; 71045; 80048; 80053; 80076; 81003; 81025; 82962; 83690; 83735; 83880; 84484; 85014; 85018; 85025; 85044; 85610; 86850; 86870; 86900; 86901; 86922; 87086; 87088; 93005; 94760; 96361; 96374; 96375; 97116; 97161; 99284; J1170; J1642; J1940; J2550; J7030; P9016

== ENCOUNTER 2019-05-24 17:54 | Inpatient (IN) | payer OTHER ==
[2019-05-24] MEDS ORDERED: HYDROMORPHONE HCL 1 MG/ML INJ ONE ×2 (18:38→21:00)
[2019-05-24] MEDS ORDERED: DIPHENHYDRAMINE 50 MG/ML VIAL ONE ×2 (18:38→22:03)
[2019-05-24] MEDS ORDERED: NA CHLORIDE 0.9% 1,000 ML ONE (18:38)
[2019-05-24] MEDS ORDERED: PROMETHAZINE 25 MG/ML VIAL ONE (18:38)
[2019-05-24 19:00] LABS: Urine Bacteria <20 /HPF (<20); Urine Culture Reflex Order NOT NEEDED; Urine RBC <5 /HPF (NONE SEEN)
[2019-05-24 19:17] LABS: Protime INR 1.2
[2019-05-24 19:21] LABS: Hematocrit 22.3 % (36.0-45.0); MPV 8.5 fL (7.6-11.3); RBC Red Blood Cell Count 2.25 M/uL (3.86-4.86)
[2019-05-24 19:35] LABS: ALT/SGPT 74 U/L (12-78); AST/SGOT 127 U/L (15-37); Albumin 3.4 g/dL (3.4-5.0); Alkaline Phosphatase 175 U/L (45-117); BUN Blood Urea Nitrogen 9 mg/dL (7-18); Bicarbonate 30 mmol/L (21-32); Bilirubin Direct 0.8 mg/dL (0-0.2); Bilirubin Total 2.4 mg/dL (0.2-1.0); Glucose Level 98 mg/dL (74-106); Magnesium 1.7 mg/dL (1.8-2.4); NT PRO-BNP 407 pg/mL (<125); Potassium 3.8 mmol/L (3.5-5.1); Protein, Total 8.6 g/dL (6.4-8.2); Sodium Level 142 mmol/L (136-145); Troponin (Emerg Dept Use Only) < 0.02 ng/mL (0.0-0.045)
--- NOTE | 2019-05-24 19:46 | RAD REPORT ---
EXAM DESCRIPTION: Gonzalez Single View05/24/2019 6:42 pm CLINICAL HISTORY: Chest pain COMPARISON: March 2019 FINDINGS: The lungs appear clear of acute infiltrate. The heart is moderately enlarged. Central venous catheter has its tip in the superior vena cava IMPRESSION: No acute abnormalities displayed
[2019-05-24] MEDS ORDERED: MAGNESIUM SULFATE 1 gm IVPB 1 GM/100 ML BAG IV ONE (19:57)
[2019-05-24 20:30] LABS: Blood Morphology Comment NOTED (NOT SEEN); Platelet Estimate ADEQ
[2019-05-24 20:31] LABS: Anisocytosis 3+; Polychromasia 3+; Target Cells 2+
--- NOTE | 2019-05-24 21:20 | ER ---
Nurse's Notes [facility] Name: Brennon Berg Age: 39 yrs Sex: Female : 1980 Arrival Date: 05/24/2019 Time: 18:18 Bed 13 Private MD: Diagnosis: Sickle-cell/Hb-C disease with crisis;Anemia in chronic diseases classified elsewhere Presentation: 05/24 17:58 Presenting complaint: EMS states: Pt. is suffering from a sickle cell crisis x 1 week. rb1 Is hypertensive 180's/120's P 80's, 92 % RA, put on 3 L NC and was 99%. Pain 10/10, pain is all over. She has not taken any medications today. History of Aplastic anemia, CVA, and Sickle Cell. Transition of care: patient was not received from another setting of care. Onset of symptoms was May 19, 2019. Risk Assessment: Do you want to hurt yourself or someone else? Patient reports no desire to harm self or others. Initial Sepsis Screen: Does the patient meet any 2 criteria? No. Patient's initial sepsis screen is negative. Does the patient have a suspected source of infection? No. Patient's initial sepsis screen is negative. Care prior to arrival: None. 17:58 Method Of Arrival: EMS: [facility] rb1 17:58 Acuity: TEMI 3 rb1 Triage Assessment: 17:58 General: Appears in no apparent distress. comfortable, Behavior is calm, cooperative. rb1 Pain: Complains of pain in generalized Pain currently is 10 out of 10 on a pain scale. Pain began x 1 week. Neuro: Level of Consciousness is awake, alert, obeys commands, Oriented to person, place, time, situation. Cardiovascular: Capillary refill < 3 seconds is brisk in bilateral fingers. Respiratory: Airway is patent Respiratory effort is even, unlabored, Respiratory pattern is regular, symmetrical. GI: Reports nausea. : No signs and/or symptoms were reported regarding the genitourinary system. Derm: Skin is dry, Skin is normal, Skin temperature is warm. Musculoskeletal: Range of motion: limited in left hand. Historical: - Allergies: 20:53 Fentanyl; jb4 20:53 Morphine; jb4 20:53 Reglan; jb4 20:53 Stadol; jb4 20:53 Toradol; jb4 20:53 tramadol; jb4 20:53 Trazodone; jb4 20:53 Ultram; jb4 20:53 Zofran; jb4 - Home Meds: 20:53 gabapentin 300 mg Oral cap 1 cap 3 times per day [Active]; Hydrea 500 mg Oral cap TID jb4 [Active]; hydrocodone-acetaminophen 10-325 mg Oral tab [Active]; hydroxyurea 500 mg Oral cap 1 cap every 3 days [Active]; Keppra 250 mg Oral tab 1 tabs 2 times per day [Active]; promethazine 25 mg Oral tab as needed [Active]; Xanax 2 mg Oral tab 2 times a day [Active]; - PMHx: 20:53 aplastic anemia; CVA; L sided weakness; Myocardial infarction; 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 - Social history:: Smoking status: Patient/guardian denies using tobacco. - Ebola Screening: : Patient negative for fever greater than or equal to 101.5 degrees Fahrenheit, and additional compatible Ebola Virus Disease symptoms. Screenin:58 Abuse screen: Denies threats or abuse. Nutritional screening: No deficits noted. rb1 Tuberculosis screening: No symptoms or risk factors identified. Fall Risk None identified. Assessment: 17:58 General: See triage assessment. rb1 18:55 Reassessment: Patient appears in no apparent distress at this time. No changes from rb1 previously documented assessment. 19:29 Reassessment: Patient appears in no apparent distress at this time. Patient and/or jb4 family updated on plan of care and expected duration. Pain level reassessed. Patient is alert, oriented x 3, equal unlabored respirations, skin warm/dry/pink. PT reports wanting to be transferred to [facility] in the [facility] in [place]. Provider notified. Patient states feeling better. 20:10 Reassessment: PT reports and increase in pain , provider notified, no new orders at [facility] this time. 20:30 Reassessment: Patient appears in no apparent distress at this time. Patient and/or jb4 family updated on plan of care and expected duration. Pain level reassessed. Patient is alert, oriented x 3, equal unlabored respirations, skin warm/dry/pink. 20:54 Reassessment: PT reports increase in pain. Provider notifed. jb4 22:00 Reassessment: Patient appears in no apparent distress at this time. Patient and/or jb4 family updated on plan of care and expected duration. Pain level reassessed. Patient is alert, oriented x 3, equal unlabored respirations, skin warm/dry/pink. 23:00 Reassessment: Patient appears in no apparent distress at this time. Patient and/or jb4 family updated on plan of care and expected duration. Pain level reassessed. Patient is alert, oriented x 3, equal unlabored respirations, skin warm/dry/pink. 23:30 Reassessment: PT reports sudden onset chest pain, Dr. Catalan notified, EKG done. 4 05/25 00:00 Reassessment: Patient appears in no apparent distress at this time. Patient and/or jb4 family updated on plan of care and expected duration. Pain level reassessed. Patient is alert, oriented x 3, equal unlabored respirations, skin warm/dry/pink. 00:30 Reassessment: Patient appears in no apparent distress at this time. Patient and/or jb4 family updated on plan of care and expected duration. Pain level reassessed. Patient is alert, oriented x 3, equal unlabored respirations, skin warm/dry/pink. Pt transferred upstairs. IV fluids w/ pt, clamped during transfer. Vital Signs: 05/24 17:58 BP 183 / 98; Pulse 85; Resp 19; Pulse Ox 99% on R/A; Weight 74.39 kg (R); Height 5 ft. rb1 3 in. (160.02 cm) (R); Pain 1010; 19:29 BP 169 / 103; Pulse 80; Resp 17; Pulse Ox 100% on R/A; ea 20:14 BP 176 / 115; Pulse 78; Resp 16; Pulse Ox 100% on 3 lpm NC; mt 20:30 BP 191 / 131; Pulse 83; Resp 20; Temp 97.4(TE); Pulse Ox 100% on R/A; jb4 22:00 BP 181 / 120; Pulse 83; Resp 18; Pulse Ox 100% on 2 lpm NC; jb4 23:30 BP 191 / 120; Pulse 78; Resp 16; Pulse Ox 99% on 2 lpm NC; jb4 05/25 00:09 BP 174 / 113; Pulse 88; Resp 14; Temp 97.4(T); Pulse Ox 98% on 2 lpm NC; jb4 05/24 17:58 Body Mass Index 29.05 (74.39 kg, 160.02 cm) rb1 ED Course: 05/24 17:58 Arm band placed on right wrist. rb1 17:58 Patient has correct armband on for positive identification. Bed in low position. Call rb1 light in reach. Side rails up X2. Pulse ox on. NIBP on. Warm blanket given. 18:18 Patient arrived in ED. rb1 18:19 Spenser Ventura PA is PHCP. cp 18:19 Flaco Cook MD is Attending Physician. cp 18:22 Joann Priest, NIKKI is Primary Nurse. rb1 18:27 Triage completed. rb1 18:42 XRAY Chest (1 view) In Process Unspecified. EDMS 19:40 Given sandwich and juice per request. mt 21:18 Armando Catalan MD is Hospitalizing Provider. cp 05/25 00:30 No provider procedures requiring assistance completed. Patient admitted, IV remains in jb4 place. Administered Medications: 05/24 18:55 Drug: NS 0.9% 1000 ml Route: IV; Rate: 1000 ml/hr; Site: Port-a-cath; rb1 18:55 Drug: Dilaudid 1 mg Route: IVP; Site: Port-a-cath; rb1 18:55 Drug: Benadryl 25 mg Route: IVP; Site: Port-a-cath; rb1 18:55 Drug: Phenergan 25 mg Route: IVP; Site: Port-a-cath; rb1 20:15 Drug: Magnesium Sulfate 1 grams Route: IVPB; Infused Over: 1 hrs; Site: Port-a-cath; jb4 21:15 Follow up: Response: No adverse reaction; IV Status: Completed infusion; IV Intake: jb4 100ml 21:17 Drug: Dilaudid 1 mg {Note: Rass Score 0.} Route: IVP; Site: Port-a-cath; 4 22:09 Drug: Benadryl 25 mg Route: IVP; Site: Port-a-cath; 4 05/25 00:04 Drug: hydrALAZINE 10 mg Route: IV; Rate: calculated rate; Site: Port-a-cath; 4 Intake: 05/24 21:15 IV: 100ml; Total: 100ml. jb4 Outcome: 21:19 Decision to Hospitalize by Provider. cp 05/25 00:30 Admitted to Tele accompanied by nurse, via stretcher, room 406, with oxygen, with jb4 chart, Report called to NIKKI Valero Condition: stable Discharge instructions given to patient, Instructed on the need for admit, Demonstrated understanding of instructions. 00:49 Patient left the ED. ar5 Signatures: Dispatcher [employer] EDMS Spenser Ventura PA PA cp Barber, Rebecca, RN Chavo Soto RN RN jb4 Mary Delcid mt, Elena, RN RN ea Robles, Autumn ar5 Corrections: (The following items were deleted from the chart) 00:10 05/24 20:30 BP 191 / 131; Pulse 83bpm; Resp 20bpm; Pulse Ox 100% RA; jb4 jb4
--- NOTE | 2019-05-24 21:20 | EDPHYS ---
Physician Documentation [facility] Name: Brennon Berg Age: 39 yrs Sex: Female : 1980 Arrival Date: 05/24/2019 Time: 18:18 Bed 13 Private MD: ED Physician Flaco Cook HPI: 05/24 18:45 This 39 yrs old Black Female presents to ER via EMS with complaints of Sickle Cell cp Crisis. 05/25 18:45 The patient has shortness of breath at rest. Onset: The symptoms/episode began/occurred cp gradually. 18:45 Duration: The symptoms are continuous, and are steadily getting worse. Associated signs cp and symptoms: Pertinent positives: chest pain, abdominal pain, pain all over. Patient with history of sickle cell and reports increasing pain over last 1 week. Historical: - Allergies: 05/24 20:53 Fentanyl; jb4 20:53 Morphine; jb4 20:53 Reglan; jb4 20:53 Stadol; jb4 20:53 Toradol; jb4 20:53 tramadol; jb4 20:53 Trazodone; jb4 20:53 Ultram; jb4 20:53 Zofran; jb4 - Home Meds: 20:53 gabapentin 300 mg Oral cap 1 cap 3 times per day [Active]; Hydrea 500 mg Oral cap TID jb4 [Active]; hydrocodone-acetaminophen 10-325 mg Oral tab [Active]; hydroxyurea 500 mg Oral cap 1 cap every 3 days [Active]; Keppra 250 mg Oral tab 1 tabs 2 times per day [Active]; promethazine 25 mg Oral tab as needed [Active]; Xanax 2 mg Oral tab 2 times a day [Active]; - PMHx: 20:53 aplastic anemia; CVA; L sided weakness; Myocardial infarction; 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 - Social history:: Smoking status: Patient/guardian denies using tobacco. - Ebola Screening: : Patient negative for fever greater than or equal to 101.5 degrees Fahrenheit, and additional compatible Ebola Virus Disease symptoms. ROS: 18:55 Constitutional: Negative for body aches, chills, fever, poor PO intake. cp 18:55 Eyes: Negative for injury, pain, redness, and discharge. cp 18:55 ENT: Negative for drainage from ear(s), ear pain, sore throat, difficulty swallowing, difficulty handling secretions. 18:55 Cardiovascular: Positive for chest pain. 18:55 Respiratory: Positive for shortness of breath, at rest. 18:55 Abdomen/GI: Positive for abdominal pain, Negative for vomiting, diarrhea, constipation, black/tarry stool, rectal bleeding. 18:55 Back: Positive for pain at rest, pain with movement. 18:55 MS/extremity: Positive for pain all over, Negative for injury or acute deformity. 18:55 Skin: Negative for cellulitis, rash. 18:55 Neuro: Negative for altered mental status, dizziness, headache, weakness. 18:55 All other systems are negative. Exam: 19:00 Constitutional: The patient appears in no acute distress, alert, awake, cp non-diaphoretic, non-toxic, well developed, well nourished. 19:00 Head/Face: Normocephalic, atraumatic. cp 19:00 Eyes: Periorbital structures: appear normal, Pupils: equal, round, and reactive to light and accomodation, Extraocular movements: intact throughout, Conjunctiva: normal, no exudate, no injection, Sclera: no appreciated abnormality, Lids and lashes: appear normal, bilaterally. 19:00 ENT: External ear(s): are unremarkable, Ear canal(s): are normal, clear, TM's: are normal, no evidence of bulging, no erythema, Nose: is normal, Mouth: is normal, Posterior pharynx: is normal, airway is patent, no erythema, no exudate. 19:00 Chest/axilla: Inspection: normal, Palpation: crepitus, is not appreciated, tenderness, that is mild. 19:00 Cardiovascular: Rate: normal, Rhythm: regular, JVD: is not appreciated. 19:00 Respiratory: the patient does not display signs of respiratory distress, Respirations: normal, no use of accessory muscles, no retractions, no splinting, no tachypnea, labored breathing, is not present, Breath sounds: are clear throughout, no stridor, no wheezing. 19:00 Abdomen/GI: Inspection: distension, Bowel sounds: active, all quadrants, Palpation: soft, in all quadrants, mild abdominal tenderness, in all quadrants. 19:00 Back: pain, that is moderate, ROM is painful. 19:00 Skin: no rash present. 19:00 Neuro: Orientation: to person, place \T\ time. Mentation: is normal, Motor: left arm partially contracted, Sensation: no obvious gross deficits. Vital Signs: 17:58 BP 183 / 98; Pulse 85; Resp 19; Pulse Ox 99% on R/A; Weight 74.39 kg (R); Height 5 ft. rb1 3 in. (160.02 cm) (R); Pain 10/10; 19:29 BP 169 / 103; Pulse 80; Resp 17; Pulse Ox 100% on R/A; ea 20:14 BP 176 / 115; Pulse 78; Resp 16; Pulse Ox 100% on 3 lpm NC; mt 20:30 BP 191 / 131; Pulse 83; Resp 20; Temp 97.4(TE); Pulse Ox 100% on R/A; jb4 22:00 BP 181 / 120; Pulse 83; Resp 18; Pulse Ox 100% on 2 lpm NC; jb4 23:30 BP 191 / 120; Pulse 78; Resp 16; Pulse Ox 99% on 2 lpm NC; jb4 05/25 00:09 BP 174 / 113; Pulse 88; Resp 14; Temp 97.4(T); Pulse Ox 98% on 2 lpm NC; jb4 05/24 17:58 Body Mass Index 29.05 (74.39 kg, 160.02 cm) rb1 MDM: 05/24 18:28 Patient medically screened. cp 21:00 Data reviewed: vital signs, nurses notes, lab test result(s), EKG, radiologic studies, cp plain films. 21:00 Antibiotic administration: Not indicated. Test interpretation: by ED physician or cp midlevel provider: plain radiologic studies, chest xray negative for pneumonia. Response to treatment: the patient's symptoms have mildly improved after treatment, and as a result, I will admit patient. 05/24 18:27 Order name: Basic Metabolic Panel; Complete Time: 19:47 cp 05/24 19:47 Interpretation: Normal except: CL 108; CRE 0.49. cp 05/24 18:27 Order name: CBC with Diff; Complete Time: 20:54 cp 05/24 20:54 Interpretation: Normal except: WBC 12.8; RBC 2.25; HGB 7.4; HCT 22.3; MCV 99.3; RDW cp 36.9. 05/24 18:27 Order name: LFT's; Complete Time: 19:47 cp 05/24 19:47 Interpretation: Normal except: AST 127; ALK 175; BILIT 2.4; BILID 0.8; TP 8.6; GLOB cp 5.2; A/G 0.7. 05/24 18:27 Order name: Magnesium; Complete Time: 19:47 cp 05/24 18:27 Order name: NT PRO-BNP; Complete Time: 19:47 cp 05/24 18:27 Order name: PT-INR; Complete Time: 19:47 cp 05/24 18:27 Order name: Troponin (emerg Dept Use Only); Complete Time: 19:47 cp 05/24 18:27 Order name: Retic Count; Complete Time: 20:54 cp 05/24 18:27 Order name: Type And Screen cp 05/24 18:27 Order name: Urine Microscopic Only; Complete Time: 19:47 cp 05/24 19:36 Order name: Manual Differential; Complete Time: 20:54 EDMS 05/24 20:07 Order name: Antibody Identification EDMS 05/24 22:17 Order name: CBC with Automated Diff EDMS 05/24 22:17 Order name: CBC with Automated Diff EDMS 05/24 18:27 Order name: XRAY Chest (1 view); Complete Time: 20:54 cp 05/24 18:27 Order name: EKG; Complete Time: 18:29 cp 05/24 22:17 Order name: Comprehensive Metabolic Panel EDMS 05/24 22:17 Order name: Comprehensive Metabolic Panel EDMS 05/24 22:17 Order name: Magnesium EDMS 05/24 22:17 Order name: Magnesium EDMS 05/24 22:17 Order name: Phosphorus EDMS 05/24 22:17 Order name: Phosphorus EDMS 05/24 18:27 Order name: Cardiac monitoring; Complete Time: 19:20 cp 05/24 18:27 Order name: EKG - Nurse/Tech; Complete Time: 19:27 cp 05/24 18:27 Order name: IV Saline Lock; Complete Time: 19:19 cp 05/24 18:27 Order name: Labs collected and sent; Complete Time: 19:20 cp 05/24 18:27 Order name: O2 Per Protocol; Complete Time: 19:20 cp 05/24 18:27 Order name: O2 Sat Monitoring; Complete Time: 19:27 cp 05/24 18:27 Order name: Urine Dipstick-Ancillary (obtain specimen); Complete Time: 19:19 cp 05/24 18:27 Order name: Urine Test (obtain specimen); Complete Time: 19:19 cp 05/24 22:17 Order name: Heart Healthy EDMS Administered Medications: 18:55 Drug: NS 0.9% 1000 ml Route: IV; Rate: 1000 ml/hr; Site: Port-a-cath; rb1 18:55 Drug: Dilaudid 1 mg Route: IVP; Site: Port-a-cath; rb1 18:55 Drug: Benadryl 25 mg Route: IVP; Site: Port-a-cath; rb1 18:55 Drug: Phenergan 25 mg Route: IVP; Site: Port-a-cath; rb1 20:15 Drug: Magnesium Sulfate 1 grams Route: IVPB; Infused Over: 1 hrs; Site: Port-a-cath; jb4 21:15 Follow up: Response: No adverse reaction; IV Status: Completed infusion; IV Intake: jb4 100ml 21:17 Drug: Dilaudid 1 mg {Note: Rass Score 0.} Route: IVP; Site: Port-a-cath; jb4 22:09 Drug: Benadryl 25 mg Route: IVP; Site: Port-a-cath; jb4 05/25 00:04 Drug: hydrALAZINE 10 mg Route: IV; Rate: calculated rate; Site: Port-a-cath; jb4 Disposition: 05/24/19 21:19 Hospitalization ordered by Armando Catalan for Inpatient Admission. Preliminary diagnosis are Sickle-cell/Hb-C disease with crisis, Anemia in chronic diseases classified elsewhere. - Bed requested for Telemetry/MedSurg (Inpatient). - Status is Inpatient Admission. ar5 - Condition is Stable. - Problem is an acute exacerbation. - Symptoms have improved. UTI on Admission? No Addendum: 05/29/2019 20:23 Co-signature as Attending Physician, Flaco Cook MD. r n Signatures: [facility] Flaco Cook MD MD rn Page, Corey, PA PA cp Garcia, Cindy, RN RN Joann Moore NIKKI RN rb1 Chavo Dowling RN RN jb4 Robles, Autumn ar5 Corrections: (The following items were deleted from the chart) 05/24 21:29 21:19 Hospitalization Ordered by Armando Catalan MD for Inpatient Admission. Preliminary cg diagnosis is Sickle-cell/Hb-C disease with crisis; Anemia in chronic diseases classified elsewhere. Bed requested for Telemetry/MedSurg (Inpatient). Status is Inpatient Admission. Condition is Stable. Problem is an acute exacerbation. Symptoms have improved. UTI on Admission? No. cp 23:48 21:29 05/24/2019 21:19 Hospitalization Ordered by Armando Catalan MD for Inpatient cg Admission. Preliminary diagnosis is Sickle-cell/Hb-C disease with crisis; Anemia in chronic diseases classified elsewhere. Bed requested for [facility] ER HOLD. Status is Inpatient Admission. Condition is Stable. Problem is an acute exacerbation. Symptoms have improved. UTI on Admission? No. cg 05/25 00:49 05/24 23:48 05/24/2019 21:19 Hospitalization Ordered by Armando Catalan MD for Inpatient ar5 Admission. Preliminary diagnosis is Sickle-cell/Hb-C disease with crisis; Anemia in chronic diseases classified elsewhere. Bed requested for Telemetry/MedSurg (Inpatient). Status is Inpatient Admission. Condition is Stable. Problem is an acute exacerbation. Symptoms have improved. UTI on Admission? No. cg
[2019-05-24] MEDS ORDERED: ONDANSETRON 4 MG/2 ML VIAL IV PRN (22:02)
[2019-05-24] MEDS ORDERED: ACETAMINOPHEN 500 MG TAB PO PRN (22:02)
[2019-05-24] MEDS ORDERED: hydrOXYzine HCl 25 MG TAB PO PRN (22:15)
--- NOTE | 2019-05-24 22:25 | P.HP ---
Certification for Inpatient Patient admitted to: Inpatient With expected LOS: >2 Midnights Patient will require the following post-hospital care: None Practitioner: I am a practitioner with admitting privileges, knowledge of patient current condition, hospital course, and medical plan of care. Services: Services provided to patient in accordance with Admission requirements found in Title 42 Section 412.3 of the Code of Federal Regulations Patient History Date of Service: 05/24/19 Reason for admission: generalised body pain , sickle cell crisis History of Present Illness: 39 yo AAF with sickle cell disease ,HTN , CAD , generalized anxiety disorder , seizure disorder, chronic pain syndrome admitted with the generalized body pain and worsening of knee pain and chest discomfort which is typical of her sickle cell crisis. Patient states that she had has been followed by a house officer as outpatient and is not taking hydroxyurea as it worsens the pain and crisis. Denies any chest pain. No fever no chills Denies any nausea or vomiting Patient was assessed in the ER the pain was 8/10 in severity. Patient is admitted for further monitoring and management of the pain Allergies butorphanol tartrate [From Stadol] Allergy (Severe, Verified 04/12/19 15:26) seizures ketorolac tromethamine [From Toradol] Allergy (Severe, Verified 04/12/19 15:26) SEIZURES ondansetron HCl [From Zofran] Allergy (Severe, Verified 04/12/19 15:26) SEIZURES morphine Allergy (Intermediate, Verified 04/12/19 15:26) Hives fentanyl Allergy (Verified 04/12/19 15:26) Itching/Hives/Rash ondansetron [From Zofran (as hydrochloride)] Allergy (Verified 04/12/19 15:26) seizures tramadol Allergy (Verified 04/12/19 15:26) seizure trazodone Allergy (Verified 04/12/19 15:26) seizure metoclopramide [From Reglan] Adverse Reaction (Verified 04/12/19 15:26) SEIZURES Home medications list reviewed: Yes Home Medications: ALPRAZolam [Xanax*] 2 mg PO TID PRN 03/07/17 Hydrocodone 10/APAP 325 [[place] 10/325*] 1 tab PO Q4H PRN 03/07/17 Promethazine HCl 25 mg PO Q4H PRN 03/07/17 hydrOXYzine HCl [Atarax] 50 mg PO BID PRN 03/07/17 Gabapentin 1 cap PO TID 03/16/19 Amlodipine [Norvasc*] 1 tab PO BID 04/12/19 - Past Medical/Surgical History Has patient received pneumonia vaccine in the past: No Diabetic: No Past Medical History: Reviewed- Non-Contributory -: Sickle cell disease -: History of CVA and Left side weakness -: CAD -: Hypertension -: Seizure disorder -: Insomnia -: History of endocarditis -: Anxiety disorder -: Chronic pain -: Aplastic Anemia -: [place] -: Osteo to the Right leg -: Right axillary lumpectomy -: Splenectomy -: Cholecystectomy -: Partial hysterectomy -: 6 portacaths -: 6 piccs -: Psychosocial/ Personal History: The patient is . She has 2 children. - Family History Father -: Heart disease, Hypertension Mother -: Hypertension - Social History Smoking Status: Never smoker Alcohol use: No CD- Drugs: No Caffeine use: Yes Review of Systems 10-point ROS is otherwise unremarkable General: Other (Denies any fever or chills) Respiratory: SOB with Excertion Cardiovascular: Chest Pain Gastrointestinal: Abdominal Pain Musculoskeletal: Back Pain, Leg Pain Physical Examination - Vital Signs Temperature: 97.6 F Blood Pressure: 186/76 Pulse: 82 - Physical Exam General: Alert, Oriented x3, Moderate distress HEENT: Atraumatic, Normocephalic Neck: Supple Respiratory: Clear to auscultation bilaterally Cardiovascular: Normal pulses, Regular rate/rhythm Capillary refill: <2 Seconds Gastrointestinal: Normal bowel sounds, Soft and benign Musculoskeletal: No clubbing, No swelling Integumentary: No rashes, No significant lesion Neurological: Normal speech, Normal strength at 5/5 x4 extr, Cranial nerves 3- 12 intact Lymphatics: No axilla or inguinal lymphadenopathy External genitalia: Deferred Rectal: Deferred - Studies Laboratory Data (last 24 hrs) 05/24/19 18:55: PT 14.1 H, INR 1.20 05/24/19 18:55: WBC 12.8 H, Hgb 7.4 L*, Hct 22.3 L, Plt Count 197 05/24/19 18:55: Sodium 142, Potassium 3.8, BUN 9, Creatinine 0.49 L, Glucose 98 , Magnesium 1.7 L, Total Bilirubin 2.4 H, AST 127 H, ALT 74, Alkaline Phosphatase 175 H Assessment and Plan - Problems (Diagnosis) (1) Sickle cell pain crisis Onset Date: 04/16/18 Current Visit: No Status: Acute Plan: Monitor under telemetry start on IV pain medications IV hydration oxygen supplementation Monitor closely (2) Anemia Onset Date: 09/06/15 Current Visit: No Status: Chronic Plan: Sickle cell anemia High retic count noted Monitor CBC daily Transfuse p.r.n. Qualifiers: Anemia type: other cause Other causes of anemia: other cause, not classified Qualified Code(s): D64.89 - Other specified anemias (3) Anxiety Onset Date: 03/07/17 Current Visit: No Status: Chronic Plan: Continue home medications Titrate as needed (4) CAD (coronary artery disease) Onset Date: 03/07/17 Current Visit: No Status: Chronic Plan: Continue home medications monitor under telemetry leukocytosis Probably reactive Monitor CBC daily No signs of sepsis Hypomagnesemia On magnesium replacement protocol Elevated LFTs Monitor CMP daily GI/DVT prophylaxis Qualifiers: Coronary Disease-Associated Artery/Lesion type: [place] artery [place] vs. transplanted heart: [place] heart Associated angina: without angina Qualified Code(s): I25.10 - Atherosclerotic heart disease of [place] coronary artery without angina pectoris Discharge Plan: Home Plan to discharge in: 48 Hours - Advance Directives Does patient have a Living Will: No Does patient have a Durable POA for Healthcare: No
[2019-05-24] MEDS: NA CHLORIDE 0.9% 1,000 ML IV SCH (23:00)
[2019-05-24] MEDS: PROMETHAZINE 25 MG/ML VIAL IV PRN (23:41)
[2019-05-24] MEDS: HYDROCODONE/APAP 10/325 TAB PO PRN (23:43)
[2019-05-24] MEDS ORDERED: HYDRALAZINE HCL 20 MG/ML VIAL ONE (23:54)
[2019-05-25 00:55] VITALS: BMI 31.2
[2019-05-25] MEDS: HEPARIN 5000 UNIT/ML 1 ML VIAL SQ SCH ×3 (01:00→16:59)
[2019-05-25] MEDS: ALPRAZOLAM 1 MG TABLET PO PRN ×2 (01:13→12:26)
[2019-05-25] MEDS: HYDROMORPHONE HCL 2 MG/ML inj IV PRN ×4 (01:14→13:35)
[2019-05-25] MEDS: HYDROCODONE/APAP 10/325 TAB PO PRN ×2 (04:11→12:06)
[2019-05-25] MEDS: PROMETHAZINE 25 MG/ML VIAL IV PRN ×2 (05:09→13:37)
--- NOTE | 2019-05-25 06:14 | EKG ---
Test Date: 2019-05-24 Test Time: 19:22:34 Pearler: BERTA MEASUREMENT RESULTS: Intervals: Rate: 81 WA: 182 QRSD: 78 QT: 418 QTc: 485 [place]: P: 54 WA: 182 QRS: 26 T: 43 INTERPRETIVE STATEMENTS: Normal sinus rhythm Prolonged QT Abnormal ECG Compared to ECG 04/12/2019 09:49:52 Left ventricular hypertrophy no longer present Electronically Signed On 05-25-19 06:14:14 CDT by Javid Randhawa
[2019-05-25] MEDS: HYDRALAZINE HCL 20 MG/ML VIAL IV PRN ×2 (06:25→12:26)
[2019-05-25 08:11] LABS: Hematocrit 20.7 % (36.0-45.0); MPV 8.9 fL (7.6-11.3); RBC Red Blood Cell Count 2.09 M/uL (3.86-4.86)
[2019-05-25 08:23] LABS: ALT/SGPT 74 U/L (12-78); AST/SGOT 145 U/L (15-37); Albumin 3.5 g/dL (3.4-5.0); Alkaline Phosphatase 192 U/L (45-117); BUN Blood Urea Nitrogen 8 mg/dL (7-18); Bicarbonate 28 mmol/L (21-32); Bilirubin Total 2.7 mg/dL (0.2-1.0); Glucose Level 100 mg/dL (74-106); Magnesium 1.8 mg/dL (1.8-2.4); Phosphorus 4.4 mg/dL (2.5-4.9); Potassium 3.9 mmol/L (3.5-5.1); Protein, Total 8.5 g/dL (6.4-8.2); Sodium Level 140 mmol/L (136-145)
[2019-05-25 08:45] LABS: Anisocytosis 3+; Blood Morphology Comment NOTED (NOT SEEN); Hypochromasia 1+; Macrocytosis 1+; Platelet Estimate ADEQ; Poikilocytosis 1+; Polychromasia 1+; Target Cells 1+
[2019-05-25 08:46] LABS: Elliptocytes 1+; Howell-Jolly Bodies NOTED
--- NOTE | 2019-05-25 08:49 | RAD REPORT ---
EXAM DESCRIPTION: RAD - Hip Right 2 View - 05/25/2019 6:50 am CLINICAL HISTORY: Nontraumatic right hip pain COMPARISON: Right hip September 2013 FINDINGS: AP and frog-leg views of the right hip were obtained. There is no fracture or dislocation . No AVN or focal femoral head abnormality suspected. No joint effusion suspected. No degenerative c hange seen. No periarticular mass or hematoma suspected. Detail is limited by a body habitus and film technique. IMPRESSION: Negative right hip examination for acute findings.
[2019-05-25] MEDS: GABAPENTIN 300 MG CAP PO SCH ×3 (09:26→21:44)
[2019-05-25] MEDS: AMLODIPINE 2.5 MG TAB PO SCH ×2 (09:26→21:44)
[2019-05-25] MEDS: DIPHENHYDRAMINE 50 MG/ML VIAL IV PRN ×2 (09:27→21:43)
[2019-05-25] MEDS: NA CHLORIDE 0.9% 1,000 ML IV SCH ×2 (12:25→21:49)
[2019-05-25] MEDS ORDERED: HYDROMORPHONE HCL 1 MG/ML INJ IV PRN (16:30)
[2019-05-25] MEDS ORDERED: POTASSIUM CL SA 10 MEQ TAB PO ONE (19:15)
[2019-05-25] MEDS: HYDROMORPHONE HCL 1 MG/ML INJ IV PRN (19:35)
--- NOTE | 2019-05-25 20:32 | PN ---
Date of Progress Note: 05/25/2019 Subjective: Patient is seen and examined. Chart reviewed and case discussed with RN. The patient i s complaining of some uncontrolled pain, had several questions about obtaining a pain pump and gettin g in with pain management doctors states that she has been unsuccessful recently due to insurance iss ues and denial from the doctor himself. Medication List: Reviewed. Physical Examination: Vital Signs: Temperature 97.3, heart rate 96, blood pressure 158/99, respirations 18, O2 at 98% on 2 L via nasal cannula. General: Awake, alert, and oriented x3, in some mild distress, obese female, ill-appearing. CV: S1 and S2. Regular rate and rhythm. Peripheral pulses present. Respiratory: Moving air well bilaterally. No wheezing or stridor. No use of accessory muscles. Gastrointestinal: Abdomen is soft, nontender, nondistended. Positive bowel sounds. Extremities: No clubbing, cyanosis, or edema. Musculoskeletal: Patient has tenderness lower extremities and upper extremities. No chest tendernes s. Neurologic: Nonfocal. Laboratory Data: Sodium 140, potassium 3.9, chloride 107, CO2 of 28, BUN 8, creatinine 0.61, glucose 100, calcium 8.6, phosphorus 3.2, magnesium 1.8, total bilirubin 2.7, AST 145, ALT 74. WBC 16.1, H and H 7.3 and 21.7, platelets 160, neutrophils not present. Assessment And Plan: A 39-year-old female with: 1.Acute sickle cell crisis. 2.We will continue IV fluids and supplemental oxygen. Monitor for chest syndrome. 3.Sickle cell disease and anemia. We will monitor H and H and transfuse for hemoglobin less than 7. She is in her baseline. 4.History of cerebrovascular accident, left upper extremity contracture. 5.Obesity, BMI 31. 6.Chronic pain syndrome. 7.Coronary artery disease [place] artery and [place] heart without angina. 8.Insomnia. 9.Generalized anxiety disorder, stable. Plan: We will monitor H and H. Continue IV fluids, likely discharge in a.m. depending on pain contr ol. SA/MODL Voice ID: [id number] Report ID: [id number]
[2019-05-25] MEDS ORDERED: MIRTAZAPINE 15 MG TAB PO SCH (21:00)
[2019-05-25] MEDS ORDERED: MAGNESIUM SULFATE 1 gm IVPB 1 GM/100 ML BAG IV ONE (21:00)
[2019-05-25 21:37] LABS: Urine Appearance CLEAR; Urine Bilirubin NEGATIVE (NEG); Urine Blood TRACE (NEG); Urine Color YELLOW; Urine Glucose NEGATIVE (NEG); Urine Protein TRACE (NEG)
[2019-05-25 22:14] LABS: Urine Microscopic Reflex ORDER UMIC
[2019-05-25 23:25] LABS: Urine Amorphous Sediment TRACE /HPF (NONE SEEN); Urine Bacteria <20 /HPF (<20); Urine Culture Reflex Order NOT NEEDED; Urine RBC <5 /HPF (NONE SEEN)
[2019-05-26] MEDS: HYDROCODONE/APAP 10/325 TAB PO PRN ×2 (00:54→05:46)
[2019-05-26] MEDS: PROMETHAZINE 25 MG/ML VIAL IV PRN (00:55)
[2019-05-26] MEDS: HEPARIN 5000 UNIT/ML 1 ML VIAL SQ SCH ×2 (01:00→09:00)
[2019-05-26] MEDS: HYDROMORPHONE HCL 1 MG/ML INJ IV PRN (02:24)
[2019-05-26] MEDS: DIPHENHYDRAMINE 50 MG/ML VIAL IV PRN (04:26)
[2019-05-26 05:17] LABS: ALT/SGPT 78 U/L (12-78); AST/SGOT 178 U/L (15-37); Albumin 3.3 g/dL (3.4-5.0); Alkaline Phosphatase 191 U/L (45-117); BUN Blood Urea Nitrogen 7 mg/dL (7-18); Bicarbonate 27 mmol/L (21-32); Bilirubin Total 2.9 mg/dL (0.2-1.0); Glucose Level 127 mg/dL (74-106); Potassium 4.4 mmol/L (3.5-5.1); Protein, Total 8.4 g/dL (6.4-8.2); Sodium Level 142 mmol/L (136-145)
[2019-05-26 05:27] LABS: Absolute Lymphocytes (CBC) 5.6 K/uL (0.7-4.9); MPV 9.2 fL (7.6-11.3); RBC Red Blood Cell Count 1.96 M/uL (3.86-4.86)
[2019-05-26 05:28] LABS: Hematocrit 19.3 % (36.0-45.0)
[2019-05-26 05:29] LABS: Basophils % 0.9 % (0-1.3); Lymphocytes % 32.3 % (15.3-44.8)
[2019-05-26 08:21] VITALS: O2SAT 99
[2019-05-26] MEDS: AMLODIPINE 2.5 MG TAB PO SCH (09:00)
[2019-05-26] MEDS: GABAPENTIN 300 MG CAP PO SCH (09:00)
--- NOTE | 2019-05-26 09:53 | EKG ---
Test Date: 2019-05-24 Test Time: 23:23:19 Quality Systems Technician: CARMINA MEASUREMENT RESULTS: Intervals: Rate: 79 FL: 184 QRSD: 84 QT: 414 QTc: 474 Mallie: P: 69 FL: 184 QRS: 43 T: 59 INTERPRETIVE STATEMENTS: Normal sinus rhythm Normal ECG Compared to ECG 05/24/2019 19:22:34 Prolonged QT interval no longer present Electronically Signed On 05-26-19 09:52:21 CDT by Javid Randhawa
[2019-05-26] MEDS ORDERED: HEPARIN 500 UNIT/5 ML SYR IV PRN (10:23)
[2019-05-26 12:40] VITALS: BP 135/83; TEMP 97.3
--- NOTE | 2019-05-27 13:04 | DS ---
Date of Discharge: 05/26/2019 Admitting Diagnoses: 1. Sickle cell pain crisis. 2. Sickle cell disease and anemia. 3. Generalized anxiety disorder. 4. Coronary artery disease, [place] artery and [place] heart without angina. 5. Elevated liver function tests. Discharge Diagnoses: 1. Sickle cell pain crisis, improving. 2. Sickle cell disease. Hemoglobin around baseline. 3. History of cerebrovascular accident, left upper extremity contracture. 4. Obesity, BMI 31. 5. Chronic pain syndrome, on chronic narcotics. 6. Coronary artery disease, [place] artery and [place] heart without angina. 7. Insomnia. 8. Generalized anxiety disorder. Hospital Course: The patient is a 39-year-old female with sickle cell disease, heart disease, hypertension, anxiety, chronic pain syndrome, seizure disorder, history of CVA, who is well known to the hospitalist service for multiple admissions for sickle cell crisis. Patient comes in with similar symptoms of pain all over her body. Patient was started on IV analgesia along with IV fluids. Patient had good response to treatment. Patient's retic count was elevated. Her pain improved. Patient, however, kept requesting Benadryl along with Dilaudid quick IV push. Patient does have a long history of chronic narcotic use and has been addicted in the past and required to come off the narcotics. Patient would become very somnolent, was drooling, had food in her mouth and would be somewhat unresponsive except for painful stimuli, as soon as she would wake up, she would request further pain medications. Pain medications were adjusted to decrease the amount of analgesia she was receiving due to her mental status being altered and her respiratory drive being diminished. She was counseled that she does not need more pain medications due to her response to the medication. Patient did not agree with decrease in dose and decrease in frequency of the medications. Patient's hemoglobin remained stable. She has mild dilutional drop in her hemoglobin to 7, which is above her baseline of usual 6.5 to 6.7. Patient did not require blood transfusion. She understands that with recurrent transfusions, she develops more antibodies and will eventually have very difficult time finding donor matching blood. Overall, patient's symptoms improved. Her magnesium level was low and was corrected. Patient did not complain of any chest pain. Patient overall did well. Patient did inquire about [facility] and was encouraged to seek treatment at [facility] for tight control of her pain. She is at risk for overdosing. She has had problems in the past with addiction as well. Patient was encouraged to follow up with her primary care physician in 2 to 3 days and to follow up with chain puller to start on alternative forms of pain control due to her risk for overdose. She was not given any narcotic prescriptions upon discharge. She will need to follow up closely and return to ER for worsening condition. Diet: Heart healthy. Activity: No driving or operating heavy machinery while on narcotics. Medications: As per medication reconciliation list. Physical Examination: General: Awake, alert, and oriented x3, obese female, not in any acute distress CV: S1, S2. No murmurs. Respiratory: Moving air well bilaterally. No wheezing. Gastrointestinal: Abdomen is soft, nontender, nondistended. Positive bowel sounds. Extremities: No clubbing, cyanosis, or edema. Neurologic: Left upper extremity contracture. total time spent dc pt was 33 mins /MODTraci Voice ID: [id number] Report ID: [id number] NATALIE
== END 2019-05-26 12:35 | disposition home or self-care (01) | DRG 812 ==
LOC: ER 17:54 → ERHOLD 22:03 → 4TH 05-25 00:24
PROVIDERS: ADMIT Family Medicine; ATTEND Family Medicine
DX: D57.00 Hb-SS disease with crisis, unspecified (principal); I69.398 Other sequelae of cerebral infarction; E66.9 Obesity, unspecified; Z68.31 Body mass index [BMI] 31.0-31.9, adult; G89.4 Chronic pain syndrome; I25.10 Atherosclerotic heart disease of native coronary artery without angina pectoris; G47.00 Insomnia, unspecified; F41.1 Generalized anxiety disorder; I10 Essential (primary) hypertension; G40.909 Epilepsy, unspecified, not intractable, without status epilepticus; E83.42 Hypomagnesemia
CPT/HCPCS: 36415; 71045; 80048; 80053; 80076; 81003; 81015; 83615; 83735; 83880; 84100; 84484; 85025; 85044; 85610; 86850; 86870; 86900; 86901; 93005; 94760; 96365; 96375; 99285; J0360; J1170; J1200; J1642; J1644; J2550; J3475; J7030

== ENCOUNTER 2019-06-03 18:29 | Emergency (ER) | payer OTHER ==
[2019-06-03] MEDS ORDERED: HYDROMORPHONE HCL 1 MG/ML INJ ONE ×2 (18:54→19:48)
[2019-06-03] MEDS ORDERED: PROMETHAZINE 25 MG/ML VIAL ONE ×2 (18:54→20:18)
[2019-06-03] MEDS ORDERED: DIPHENHYDRAMINE 50 MG/ML VIAL ONE ×2 (18:55→20:18)
[2019-06-03 19:07] LABS: Hematocrit 24.4 % (36.0-45.0); MPV 8.7 fL (7.6-11.3); RBC Red Blood Cell Count 2.42 M/uL (3.86-4.86)
[2019-06-03 19:17] LABS: ALT/SGPT 77 U/L (12-78); AST/SGOT 145 U/L (15-37); Albumin 3.7 g/dL (3.4-5.0); Alkaline Phosphatase 185 U/L (45-117); BUN Blood Urea Nitrogen 10 mg/dL (7-18); Bicarbonate 24 mmol/L (21-32); Bilirubin Total 2.6 mg/dL (0.2-1.0); Glucose Level 110 mg/dL (74-106); Potassium 3.6 mmol/L (3.5-5.1); Sodium Level 140 mmol/L (136-145)
[2019-06-03 19:55] LABS: Platelet Estimate ADEQ
[2019-06-03 19:56] LABS: Anisocytosis 3+; Blood Morphology Comment NOTED (NOT SEEN); Macrocytosis 1+; Poikilocytosis 1+; Polychromasia 2+; Target Cells 1+
[2019-06-03] MEDS ORDERED: HEPARIN 500 UNIT/5 ML SYR IV ONE (20:04)
--- NOTE | 2019-06-03 20:16 | RAD REPORT ---
EXAM DESCRIPTION: RAD - Humerus Right - 06/03/2019 7:25 pm CLINICAL HISTORY: Seizure, fall, arm pain COMPARISON: None. FINDINGS: Transverse fracture is present through the midshaft right humerus. Minimal angulation defo rmity is present with no significant distraction and no overlap of the fracture fragments. No evidenc e for pathologic fracture. No foreign body or other soft tissue abnormality. IMPRESSION: Transverse fracture midshaft right humerus.
--- NOTE | 2019-06-03 20:17 | ER ---
Nurse's Notes [facility] Name: Brennno Berg Age: 39 yrs Sex: Female : 1980 Arrival Date: 06/03/2019 Time: 18:30 Bed 4 Private MD: Diagnosis: Fracture of shaft of humerus Presentation: 06/03 18:24 Presenting complaint: EMS states: unwitnessed seizure at home, found by family laying sv on the left side. c/o right humerus pain. BP 226/130. Transition of care: patient was not received from another setting of care. Onset of symptoms was June 03, 2019. Risk Assessment: Do you want to hurt yourself or someone else? Patient reports no desire to harm self or others. Initial Sepsis Screen: Does the patient meet any 2 criteria? No. Patient's initial sepsis screen is negative. Does the patient have a suspected source of infection? No. Patient's initial sepsis screen is negative. Care prior to arrival: Splint applied. 18:24 Method Of Arrival: EMS: [facility] sv 18:31 Acuity: TEMI 2 sv Triage Assessment: 18:25 General: Appears in no apparent distress. uncomfortable, Behavior is cooperative, sv anxious. Pain: Complains of pain in right bicep Pain currently is 10 out of 10 on a pain scale. Quality of pain is described as tender, Is continuous, Aggravated by increased activity. Neuro: Level of Consciousness is awake, alert, obeys commands, Oriented to person, place, time, situation, Seizure activity reported prior to arrival. Respiratory: Airway is patent Respiratory effort is even, unlabored, Respiratory pattern is regular, symmetrical. Derm: Skin is normal, Bruising that is dark purple, on right bicep. Musculoskeletal: Range of motion: limited in right shoulder. 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 - Social history:: Smoking status: Patient/guardian denies using tobacco. - Ebola Screening: : No symptoms or risks identified at this time. Screenin:35 Abuse screen: Denies threats or abuse. Denies injuries from another. Nutritional sv screening: No deficits noted. Tuberculosis screening: No symptoms or risk factors identified. Fall Risk No fall in past 12 months (0 pts). Secondary diagnosis (15 points) seizures, No IV (0 pts). Ambulatory Aid- None/Bed Rest/Nurse Assist (0 pts). Gait- Normal/Bed Rest/Wheelchair (0 pts) Mental Status- Oriented to own ability (0 pts). Total [place] Fall Scale indicates No Risk (0-24 pts). Assessment: 19:20 General: Appears in no apparent distress. comfortable, obese, Behavior is calm, ao cooperative, appropriate for age. Pain: Complains of pain in right shoulder and right arm Pain currently is 10 out of 10 on a pain scale. Neuro: Level of Consciousness is awake, alert, obeys commands, Oriented to person, place, time, situation, Appropriate for age Moves all extremities. Full function Speech. Cardiovascular: Heart tones S1 S2 Capillary refill < 3 seconds Patient's skin is warm and dry. Respiratory: Airway is patent Respiratory effort is even, unlabored, Respiratory pattern is regular, symmetrical. GI: No signs and/or symptoms were reported involving the gastrointestinal system. : No signs and/or symptoms were reported regarding the genitourinary system. EENT: No signs and/or symptoms were reported regarding the EENT system. Derm: Skin is intact, Skin temperature is warm. Musculoskeletal: Circulation, motion, and sensation intact. Range of motion: limited in all extremities. 20:20 Reassessment: Patient appears in no apparent distress at this time. Patient and/or ao family updated on plan of care and expected duration. Pain level reassessed. Patient to be discharge. waiting on DC orders. 21:06 Reassessment: DC home. Patient agree with DC and follow up with Dr Ragsdale. ao Vital Signs: 18:55 BP 186 / 123; Pulse 83; Resp 22; Temp 98; Pulse Ox 97% ; Weight 74 kg; Height 5 ft. 3 sv in. (160.02 cm); Pain 10/10; 20:50 BP 162 / 98; Pulse 82; Resp 22; Pulse Ox 98% ; Pain 0/10; ao 18:55 Body Mass Index 28.90 (74.00 kg, 160.02 cm) sv ED Course: 18:30 Patient arrived in ED. sv 18:30 Arm band placed on. sv 18:31 Triage completed. sv 18:31 [facility]. jr8 18:31 Spenser Luis MD is Attending Physician. jr8 18:35 Patient has correct armband on for positive identification. Bed in low position. Call sv light in reach. Side rails up X2. Seizure precautions initiated. Pulse ox on. NIBP on. Door closed. Head of bed elevated. 18:45 Initial lab(s) drawn, by me, sent to lab. Accessed Port-a-Cath. using accessed w/ # 20 sv Brasher needle, ,sterile technique, per hospital protocol. Clean \T\ dry. Dressing intact. Good blood return. Flushes easily. 18:50 Brigitte Olson, NIKKI is Primary Nurse. sv 19:15 Report given to Rosita JORDAN. sv 19:25 Humerus Right XRAY In Process Unspecified. EDMS 19:43 Primary Nurse role handed off by Brigitte Olson RN sv 20:01 Ba Dickinson, RN is Primary Nurse. ao 20:17 Morgan Olivera MD is Referral Physician. jr8 21:06 No provider procedures requiring assistance completed. IV discontinued, intact, ao bleeding controlled, No redness/swelling at site. Pressure dressing applied. Administered Medications: 18:55 Drug: Phenergan 12.5 mg Route: IVP; Site: Port-a-cath; sv 20:46 Follow up: Response: No adverse reaction ao 18:57 Drug: Benadryl 12.5 mg Route: IVP; Site: Port-a-cath; sv 21:02 Follow up: Response: No adverse reaction ao 18:59 Drug: Dilaudid 1 mg Route: IVP; Site: Port-a-cath; sv 20:30 Follow up: Response: No adverse reaction; RASS: Alert and Calm (0) ao 19:52 Drug: Dilaudid 1 mg Route: IVP; Site: Port-a-cath; fc 21:02 Follow up: Response: No adverse reaction; RASS: Alert and Calm (0) ao 20:29 Drug: Benadryl 12.5 mg Route: IVP; Site: Port-a-cath; ao 21:03 Follow up: Response: No adverse reaction ao 20:29 Drug: Phenergan 12.5 mg Route: IVP; Site: Port-a-cath; ao 21:03 Follow up: Response: No adverse reaction ao 20:29 Drug: Dilaudid 2 mg {Note: PASS 0.} Route: PO; ao 21:03 Follow up: Response: No adverse reaction ao 21:02 Drug: HEParin Flush 500 units Route: IVP; Site: Port-a-cath; ao 21:02 Follow up: Response: No adverse reaction ao Outcome: 20:17 Discharge ordered by MD. kaur 21:06 Discharged to home via wheelchair. ao 21:06 Condition: stable 21:06 Discharge instructions given to patient, family, Instructed on discharge instructions, follow up and referral plans. the need for admit, Demonstrated understanding of instructions, follow-up care, medications. 21:07 Patient left the ED. ao Signatures: Dispatcher [employer] Brigitte York RN RN Britni Sanchez RN RN fc Roszak, Josh, PA PA jr8 Ba Dickinson RN RN ao Corrections: (The following items were deleted from the chart) 19:18 18:55 BP 186 / 123; Pulse 83bpm; Resp 22bpm; Pulse Ox 97%; Temp 98F; Pain 10/10; sv sv
[2019-06-03] MEDS ORDERED: HYDROMORPHONE ORAL 4 MG TAB ONE (20:18)
--- NOTE | 2019-06-03 20:18 | EDPHYS ---
Physician Documentation [facility] Name: Brennon Berg Age: 39 yrs Sex: Female : 1980 Arrival Date: 06/03/2019 Time: 18:30 Bed 4 Private MD: ED Physician Spenser Luis HPI: 06/03 19:04 This 39 yrs old Black Female presents to ER via Unassigned with complaints of Seizure, jr8 Arm Injury. 19:04 The patient presents after having a single isolated seizure. Seizure onset: just prior jr8 to arrival. Context: occurred at home. Seizure Hx:. 19:05 Associated injury: Right upper extremity: right bicep, decreased range of motion, pain. jr8 Pt with history of seizures reports having a seizure and having pain in her right upper arm. . 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 - Social history:: Smoking status: Patient/guardian denies using tobacco. - Ebola Screening: : No symptoms or risks identified at this time. ROS: 19:05 Constitutional: Negative for fever, chills, and weight loss, Eyes: Negative for injury, jr8 pain, redness, and discharge, ENT: Negative for injury, pain, and discharge, Neck: Negative for injury, pain, and swelling, Cardiovascular: Negative for chest pain, palpitations, and edema, Respiratory: Negative for shortness of breath, cough, wheezing, and pleuritic chest pain, Abdomen/GI: Negative for abdominal pain, nausea, vomiting, diarrhea, and constipation, Back: Negative for injury and pain, Skin: Negative for injury, rash, and discoloration. 19:05 MS/extremity: Positive for pain, of the right humeral area. 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 Exam: 19:05 Constitutional: This is a well developed, well nourished patient who is awake, alert. jr8 Head/Face: Normocephalic, atraumatic. Eyes: Pupils equal round and reactive to light, extra-ocular motions intact. Lids and lashes normal. Conjunctiva and sclera are non-icteric and not injected. Cornea within normal limits. Periorbital areas with no swelling, redness, or edema. Neck: Trachea midline, no thyromegaly or masses palpated, and no cervical lymphadenopathy. Supple, full range of motion without nuchal rigidity, or vertebral point tenderness. No Meningismus. Chest/axilla: Normal chest wall appearance and motion. Nontender with no deformity. No lesions are appreciated. Cardiovascular: Regular rate and rhythm with a normal S1 and S2. No gallops, murmurs, or rubs. Normal PMI, no JVD. No pulse deficits. Respiratory: Lungs have equal breath sounds bilaterally, clear to auscultation. No rales, rhonchi or wheezes noted. No increased work of breathing Abdomen/GI: Soft, non-tender, with normal bowel sounds. No distension or tympany. No guarding or rebound. No evidence of tenderness throughout. 19:05 Musculoskeletal/extremity: ROM: limited active range of motion, in the right arm, limited passive range of motion, in the right arm, Circulation is intact in all extremities. Pulses: noted to be 3+ in the right radial artery and left radial artery, Perfusion: the patient is normally perfused throughout, warm, noted to have brisk capillary refill, Perfusion: the extremity is normally perfused throughout, pink, with brisk capillary refill, Sensation intact. Vital Signs: 18:55 BP 186 / 123; Pulse 83; Resp 22; Temp 98; Pulse Ox 97% ; Weight 74 kg; Height 5 ft. 3 sv in. (160.02 cm); Pain 10/10; 20:50 BP 162 / 98; Pulse 82; Resp 22; Pulse Ox 98% ; Pain 0/10; ao 18:55 Body Mass Index 28.90 (74.00 kg, 160.02 cm) sv Procedures: 20:16 Splinting: Splint applied to right arm using Orthoglass splint, applied by tech. nurse. jr8 Examined by me, post splint application: neurovascular intact, 2+ distal pulses palpable, brisk capillary refill noted, Patient tolerated well. MDM: 18:31 Patient medically screened. jr8 20:16 Data reviewed: vital signs, nurses notes, lab test result(s), radiologic studies, plain jr8 films. Data interpreted: Pulse oximetry: on room air is 97 %. Interpretation: normal. Counseling: I had a detailed discussion with the patient and/or guardian regarding: the historical points, exam findings, and any diagnostic results supporting the discharge/admit diagnosis, lab results, radiology results, the need for outpatient follow up, a orthopedic surgeon, to return to the emergency department if symptoms worsen or persist or if there are any questions or concerns that arise at home. Response to treatment: the patient's symptoms have mildly improved after treatment. 06/03 18:36 Order name: CBC with Diff; Complete Time: 20:15 jr8 06/03 18:36 Order name: CMP; Complete Time: 19:27 jr8 06/03 18:36 Order name: Retic Count; Complete Time: 20:15 jr8 06/03 18:36 Order name: Humerus Right XRAY; Complete Time: 20:41 jr8 06/03 19:10 Order name: Manual Differential; Complete Time: 20:15 EDMS 06/03 18:36 Order name: Misc. Order: access port; Complete Time: 18:52 jr8 06/03 19:51 Order name: Splint - Elbow - Posterior: high long arm; Complete Time: 20:30 jr8 Administered Medications: 18:55 Drug: Phenergan 12.5 mg Route: IVP; Site: Port-a-cath; sv 20:46 Follow up: Response: No adverse reaction ao 18:57 Drug: Benadryl 12.5 mg Route: IVP; Site: Port-a-cath; sv 21:02 Follow up: Response: No adverse reaction ao 18:59 Drug: Dilaudid 1 mg Route: IVP; Site: Port-a-cath; sv 20:30 Follow up: Response: No adverse reaction; RASS: Alert and Calm (0) ao 19:52 Drug: Dilaudid 1 mg Route: IVP; Site: Port-a-cath; fc 21:02 Follow up: Response: No adverse reaction; RASS: Alert and Calm (0) ao 20:29 Drug: Benadryl 12.5 mg Route: IVP; Site: Port-a-cath; ao 21:03 Follow up: Response: No adverse reaction ao 20:29 Drug: Phenergan 12.5 mg Route: IVP; Site: Port-a-cath; ao 21:03 Follow up: Response: No adverse reaction ao 20:29 Drug: Dilaudid 2 mg {Note: PASS 0.} Route: PO; ao 21:03 Follow up: Response: No adverse reaction ao 21:02 Drug: HEParin Flush 500 units Route: IVP; Site: Port-a-cath; ao 21:02 Follow up: Response: No adverse reaction ao Disposition: 06/04 06:46 Co-signature as Attending Physician, Spenser Luis MD I agree with the assessment and anupam plan of care. Disposition: 06/03/19 20:17 Discharged to Home. Impression: Fracture of shaft of humerus. - Condition is Stable. - Discharge Instructions: Humerus Fracture Treated With Immobilization. - Medication Reconciliation Form, Thank You Letter, Antibiotic Education, Prescription Opioid Use form. - Follow up: Morgan Olivera MD; When: 5 - 6 days; Reason: Recheck today's complaints, Continuance of care, Re-evaluation by your physician. - Problem is new. - Symptoms have improved. Signatures: Dispatcher [employer] Brigitte York, RN Spenser Billingsley MD MD cha Chretien, Felicia, RN RN fc Roszak, Josh, PA PA jr8 Ba Dickinson RN RN ao Corrections: (The following items were deleted from the chart) 06/03 21:07 20:17 06/03/2019 20:17 Discharged to Home. Impression: Fracture of shaft of humerus. ao Condition is Stable. Forms are Medication Reconciliation Form, Thank You Letter, Antibiotic Education, Prescription Opioid Use. Follow up: Morgan Olivera; When: 5 - 6 days; Reason: Recheck today's complaints, Continuance of care, Re-evaluation by your physician. Problem is new. Symptoms have improved. jr8
[2019-06-03 23:32] VITALS: BP 162/98; O2SAT 98
[2019-06-03 23:34] VITALS: TEMP 98
== END 2019-06-03 21:07 | disposition home or self-care (01) ==
LOC: ER 18:29
PROC: 2W38X1Z Immobilization of Right Upper Extremity using Splint (ICD-10-PCS; principal; 2019-06-03)
DX: S42.301A Unspecified fracture of shaft of humerus, right arm, initial encounter for closed fracture (principal); X58.XXXA Exposure to other specified factors, initial encounter; Y92.009 Unspecified place in unspecified non-institutional (private) residence as the place of occurrence of the external cause; Y93.9 Activity, unspecified; G40.909 Epilepsy, unspecified, not intractable, without status epilepticus; Z88.6 Allergy status to analgesic agent; Z88.5 Allergy status to narcotic agent; Z88.8 Allergy status to other drugs, medicaments and biological substances; I25.2 Old myocardial infarction; I69.354 Hemiplegia and hemiparesis following cerebral infarction affecting left non-dominant side
CPT/HCPCS: 85025; 36415; 85044; 80053; 73060; 96375; 96374; 99284; 29105; J2550 ×2; J1200 ×2; J1170 ×2; J1642

== ENCOUNTER 2019-12-22 00:08 | Emergency (ER) | payer OTHER ==
--- OUTSIDE RECORDS SUMMARY | 2019-12-22 00:37 | XMS REPORT ---
:1980 Author Organization [facility] t Address [address] [place] [address] Care Team Providers Name Role Phone AHMED Unavailable Unavailable DREAD Unavailable Unavailable SOFIE, EDWARD Unavailable Unavailable ADIO, R. Unavailable Unavailable Payers Payer Name Policy Type Policy Number Effective Date Expiration D ate Problems This patient has no known problems. Allergies, Adverse Reactions, Alerts Allergy Name Allergy Status Severity Reaction(s) Onset Inactive Treat ing Comments Type Date Date Clinician fentanyl DA Active SV 12 00:00: 00 morphine DA Active SV 11-28 00:00: 00 butorphanol DA Active U 11-28 00:00: 00 metoclopramide DA Active SV 11-28 00:00: 00 ketorolac DA Active SV 11-28 00:00: 00 TRAZADONE DA Active SV 11-28 00:00: 00 Medications This patient has no known medications. Results Test Description Test Time Test Comments Text Results Atomic Results Result Comments CBC W/PLT COUNT & AUTO DIFFERENTIAL 2019-09-30 10:53:00 Test Item Value Reference Range Comments WHITE BLOOD CELL COUNT (BEAKER) (test code = 775) 25.1 K/ L 3.5-10.5 RED BLOOD CELL COUNT (BEAKER) (test code = 761) 2.19 M/ L 3.93-5.22 HEMOGLOBIN (BEAKER) (test code = 410) 7.1 GM/DL 11.2-15.7 HEMATOCRIT (BEAKER) (test code = 411) 21.5 % 34.1-44.9 MEAN CORPUSCULAR VOLUME (BEAKER) (test code = 753) 98.2 fL 79.4-94.8 MEAN CORPUSCULAR HEMOGLOBIN (BEAKER) (test code = 751) 32.4 pg 25.6-32.2 MEAN CORPUSCULAR HEMOGLOBIN CONC (BEAKER) (test code = 752) 33.0 GM/DL 32.2-35.5 RED CELL DISTRIBUTION WIDTH (BEAKER) (test code = 412) 23.7 % 11.7-14.4 PLATELET COUNT (BEAKER) (test code = 756) 169 K/CU MM 150-45 0 MEAN PLATELET VOLUME (BEAKER) (test code = 754) 11.2 fL 9.4-12.3 NUCLEATED RED BLOOD CELLS (BEAKER) (test code = 413) 2 /100 WBC 0-0 (CELLAVISION MANUAL DIFF)2019-09-30 10:53:00 Test Item Value Reference Range Comments NEUTROPHILS - REL (CELLAVISION)(BEAKER) (test 67 % code = 2816) LYMPHOCYTES - REL (CELLAVISION)(BEAKER) (test 22 % code = 2817) MONOCYTES - REL (CELLAVISION)(BEAKER) (test code 9 % = 2818) EOSINOPHILS - REL (CELLAVISION)(BEAKER) (test 2 % code = 2819) NEUTROPHILS - ABS (CELLAVISION)(BEAKER) (test 16.82 K/ul 1. 56-6.13 code = 2830) LYMPHOCYTES - ABS (CELLAVISION)(BEAKER) (test 5.52 K/ul 1. 18-3.74 code = 2831) MONOCYTES - ABS (CELLAVISION)(BEAKER) (test code 2.26 K/uL 0.24-0.36 = 2832) EOSINOPHILS - ABS (CELLAVISION)(BEAKER) (test 0.50 K/uL 0. 04-0.36 code = 2834) TOTAL COUNTED (BEAKER) (test code = 1351) 100 WBC MORPHOLOGY (BEAKER) (test code = 487) Normal PLT MORPHOLOGY (BEAKER) (test code = 486) Normal POLYCHROMATOPHILLIC RBCS(BEAKER) (test code = 3+ many 478) ANISOCYTOSIS (BEAKER) (test code = 961) 3+ many MACROCYTES (BEAKER) (test code = 964) 3+ many POIKILOCYTES (BEAKER) (test code = 966) 2+ moderate TARGET CELLS (BEAKER) (test code = 480) 1+ few SICKLE CELLS (BEAKER) (test code = 767) 1+ few MATTHEWS-JOLLY BODIES (BEAKER) (test code = 475) 1+ few ARTIFACT (CELLAVISION)(BEAKER) (test code = Present 3432) PAPPENHEIMER (CELLAVISION)(BEAKER) (test code = 1+ few 3435) PLATELET CONCENTRATION (CELLAVISION)(BEAKER) Adequate (test code = 3438) Sagger Filler ID - Amber OverholtUser comments: Slide comments:CBC W/PLT COUNT & AUTO [id number] 11:14:00 Test Item Value Reference Range Comments WHITE BLOOD CELL COUNT (BEAKER) (test code = 23.0 K/ L 3.5 -10.5 775) RED BLOOD CELL COUNT (BEAKER) (test code = 761) 2.11 M/ L 3.93-5.22 HEMOGLOBIN (BEAKER) (test code = 410) 6.7 GM/DL 11.2-15.7 HEMATOCRIT (BEAKER) (test code = 411) 21.0 % 34.1-44.9 MEAN CORPUSCULAR VOLUME (BEAKER) (test code = 99.5 fL 79 .4-94.8 753) MEAN CORPUSCULAR HEMOGLOBIN (BEAKER) (test code 31.8 pg 25.6-32.2 = 751) MEAN CORPUSCULAR HEMOGLOBIN CONC (BEAKER) (test 31.9 GM/DL 32.2-35.5 code = 752) RED CELL DISTRIBUTION WIDTH (BEAKER) (test code 25.0 % 11.7-14.4 = 412) PLATELET COUNT (BEAKER) (test code = 756) 146 K/CU MM 150-45 0 MEAN PLATELET VOLUME (BEAKER) (test code = 754) 11.1 fL 9.4-12.3 NUCLEATED RED BLOOD CELLS (BEAKER) (test code = 4 /100 WBC 0-0 413) (CELLAVISION MANUAL DIFF)2019-09-29 11:14:00 Test Item Value Reference Range Comments NEUTROPHILS - REL (CELLAVISION)(BEAKER) (test 62 % code = 2816) LYMPHOCYTES - REL (CELLAVISION)(BEAKER) (test 23 % code = 2817) MONOCYTES - REL (CELLAVISION)(BEAKER) (test code 14 % = 2818) EOSINOPHILS - REL (CELLAVISION)(BEAKER) (test 1 % code = 2819) ATYPICAL LYMPHOCYTES - REL (CELLAVISION)(BEAKER) 1 % 0-0 (test code = 2829) NEUTROPHILS - ABS (CELLAVISION)(BEAKER) (test 14.26 K/ul 1. 56-6.13 code = 2830) LYMPHOCYTES - ABS (CELLAVISION)(BEAKER) (test 5.29 K/ul 1. 18-3.74 code = 2831) MONOCYTES - ABS (CELLAVISION)(BEAKER) (test code 3.22 K/uL 0.24-0.36 = 2832) EOSINOPHILS - ABS (CELLAVISION)(BEAKER) (test 0.23 K/uL 0. 04-0.36 code = 2834) ATYPICAL LYMPHOCYTES - ABS (CELLAVISION)(BEAKER) 0.23 K/uL 0.00-0.00 (test code = 2858) TOTAL COUNTED (BEAKER) (test code = 1351) 100 MANUAL NRBC PER 100 CELLS (BEAKER) (test code = 7 /100 WBC 0-0 1353) SMUDGE CELLS (BEAKER) (test code = 1371) Present GIANT PLATELETS (BEAKER) (test code = 313) Present POLYCHROMATOPHILLIC RBCS(BEAKER) (test code = 1+ few 478) ANISOCYTOSIS (BEAKER) (test code = 961) 2+ moderate TARGET CELLS (BEAKER) (test code = 480) 1+ few SICKLE CELLS (BEAKER) (test code = 767) 1+ few ARTIFACT (CELLAVISION)(BEAKER) (test code = Present 3432) PLATELET CONCENTRATION (CELLAVISION)(BEAKER) Decreased (test code = 3438) Sagger Filler ID - Flavia Neil comments: Slide comments:VANCOMYCIN LEVEL, TROUGH 2019-09-28 12:48:00 Test Item Value Reference Range Comments VANCOMYCIN TROUGH (BEAKER) (test code = 522) 10.5 ug/mL 10. 0-20.0 Sagger Filler ID - DARRELL CHUNGATHETER TIP [id number] 08:49:00 Test Item Value Reference Range Comments CULTURE (BEAKER) (test code = 1095) No growth CBC W/PLT COUNT & AUTO [id number] 07:43:00 Test Item Value Reference Range Comments WHITE BLOOD CELL COUNT (BEAKER) (test code = 17.5 K/ L 3.5 -10.5 775) RED BLOOD CELL COUNT (BEAKER) (test code = 761) 2.07 M/ L 3.93-5.22 HEMOGLOBIN (BEAKER) (test code = 410) 6.6 GM/DL 11.2-15.7 HEMATOCRIT (BEAKER) (test code = 411) 20.7 % 34.1-44.9 MEAN CORPUSCULAR VOLUME (BEAKER) (test code = 100.0 fL 79 .4-94.8 753) MEAN CORPUSCULAR HEMOGLOBIN (BEAKER) (test code 31.9 pg 25.6-32.2 = 751) MEAN CORPUSCULAR HEMOGLOBIN CONC (BEAKER) (test 31.9 GM/DL 32.2-35.5 code = 752) RED CELL DISTRIBUTION WIDTH (BEAKER) (test code 27.2 % 11.7-14.4 = 412) PLATELET COUNT (BEAKER) (test code = 756) 132 K/CU MM 150-45 0 MEAN PLATELET VOLUME (BEAKER) (test code = 754) 10.7 fL 9.4-12.3 NUCLEATED RED BLOOD CELLS (BEAKER) (test code = 17 /100 WBC 0-0 413) (CELLAVISION MANUAL DIFF)2019-09-28 07:43:00 Test Item Value Reference Range Comments NEUTROPHILS - REL (CELLAVISION)(BEAKER) (test 55 % code = 2816) LYMPHOCYTES - REL (CELLAVISION)(BEAKER) (test 33 % code = 2817) MONOCYTES - REL (CELLAVISION)(BEAKER) (test code 11 % = 2818) EOSINOPHILS - REL (CELLAVISION)(BEAKER) (test 1 % code = 2819) NEUTROPHILS - ABS (CELLAVISION)(BEAKER) (test 9.63 K/ul 1. 56-6.13 code = 2830) LYMPHOCYTES - ABS (CELLAVISION)(BEAKER) (test 5.78 K/ul 1. 18-3.74 code = 2831) MONOCYTES - ABS (CELLAVISION)(BEAKER) (test code 1.93 K/uL 0.24-0.36 = 2832) EOSINOPHILS - ABS (CELLAVISION)(BEAKER) (test 0.18 K/uL 0. 04-0.36 code = 2834) TOTAL COUNTED (BEAKER) (test code = 1351) 100 MANUAL NRBC PER 100 CELLS (BEAKER) (test code = 17 /100 WBC 0-0 1353) WBC MORPHOLOGY (BEAKER) (test code = 487) Normal PLT MORPHOLOGY (BEAKER) (test code = 486) Normal POLYCHROMATOPHILLIC RBCS(BEAKER) (test code = 3+ many 478) ANISOCYTOSIS (BEAKER) (test code = 961) 3+ many MACROCYTES (BEAKER) (test code = 964) 3+ many POIKILOCYTES (BEAKER) (test code = 966) 2+ moderate TARGET CELLS (BEAKER) (test code = 480) 1+ few SICKLE CELLS (BEAKER) (test code = 767) 2+ moderate MATTHEWS-JOLLY BODIES (BEAKER) (test code = 475) 1+ few ARTIFACT (CELLAVISION)(BEAKER) (test code = Present 3432) PAPPENHEIMER (CELLAVISION)(BEAKER) (test code = 1+ few 3435) PLATELET CONCENTRATION (CELLAVISION)(BEAKER) Decreased (test code = 3438) Sagger Filler ID - Amber OverholtUser comments: Slide comments:CBC W/PLT COUNT & AUTO [id number] 13:45:00 Test Item Value Reference Range Comments WHITE BLOOD CELL COUNT (BEAKER) (test code = 15.4 K/ L 3.5 -10.5 775) RED BLOOD CELL COUNT (BEAKER) (test code = 761) 1.96 M/ L 3.93-5.22 HEMOGLOBIN (BEAKER) (test code = 410) 6.3 GM/DL 11.2-15.7 HEMATOCRIT (BEAKER) (test code = 411) 19.7 % 34.1-44.9 MEAN CORPUSCULAR VOLUME (BEAKER) (test code = 100.5 fL 79 .4-94.8 753) MEAN CORPUSCULAR HEMOGLOBIN (BEAKER) (test code 32.1 pg 25.6-32.2 = 751) MEAN CORPUSCULAR HEMOGLOBIN CONC (BEAKER) (test 32.0 GM/DL 32.2-35.5 code = 752) RED CELL DISTRIBUTION WIDTH (BEAKER) (test code 29.2 % 11.7-14.4 = 412) PLATELET COUNT (BEAKER) (test code = 756) 128 K/CU MM 150-45 0 MEAN PLATELET VOLUME (BEAKER) (test code = 754) 11.0 fL 9.4-12.3 NUCLEATED RED BLOOD CELLS (BEAKER) (test code = 37 /100 WBC 0-0 413) (CELLAVISION MANUAL DIFF)2019-09-27 13:45:00 Test Item Value Reference Range Comments NEUTROPHILS - REL (CELLAVISION)(BEAKER) (test 51 % code = 2816) LYMPHOCYTES - REL (CELLAVISION)(BEAKER) (test 39 % code = 2817) MONOCYTES - REL (CELLAVISION)(BEAKER) (test code 6 % = 2818) EOSINOPHILS - REL (CELLAVISION)(BEAKER) (test 3 % code = 2819) NEUTROPHILS - ABS (CELLAVISION)(BEAKER) (test 7.85 K/ul 1. 56-6.13 code = 2830) LYMPHOCYTES - ABS (CELLAVISION)(BEAKER) (test 6.01 K/ul 1. 18-3.74 code = 2831) MONOCYTES - ABS (CELLAVISION)(BEAKER) (test code 0.92 K/uL 0.24-0.36 = 2832) EOSINOPHILS - ABS (CELLAVISION)(BEAKER) (test 0.46 K/uL 0. 04-0.36 code = 2834) TOTAL COUNTED (BEAKER) (test code = 1351) 100 MANUAL NRBC PER 100 CELLS (BEAKER) (test code = 52 /100 WBC 0-0 1353) WBC MORPHOLOGY (BEAKER) (test code = 487) Normal PLT MORPHOLOGY (BEAKER) (test code = 486) Normal POLYCHROMATOPHILLIC RBCS(BEAKER) (test code = 3+ many 478) HYPOCHROMIA (BEAKER) (test code = 963) 2+ moderate TARGET CELLS (BEAKER) (test code = 480) 2+ moderate SICKLE CELLS (BEAKER) (test code = 767) 2+ moderate ARTIFACT (CELLAVISION)(BEAKER) (test code = Present 3432) PLATELET CONCENTRATION (CELLAVISION)(BEAKER) Decreased (test code = 3438) Sagger Filler ID - Lisa Dov comments: Slide comments:BASIC METABOLIC PANEL 2019-09-27 07:43:00 Test Item Value Reference Range Comments SODIUM (BEAKER) (test 140 meq/L 136-145 code = 381) POTASSIUM (BEAKER) (test 3.8 meq/L 3.5-5.1 code = 379) CHLORIDE (BEAKER) (test 108 meq/L 98-107 code = 382) CO2 (BEAKER) (test code = 25 meq/L 22-29 355) BLOOD UREA NITROGEN 4 mg/dL 7-21 (BEAKER) (test code = 354) CREATININE (BEAKER) (test 0.56 mg/dL 0.57-1.25 code = 358) GLUCOSE RANDOM (BEAKER) 97 mg/dL 70-105 (test code = 652) CALCIUM (BEAKER) (test 8.8 mg/dL 8.4-10.2 code = 697) EGFR (BEAKER) (test code 145 mL/min/1.73 sq m ES TIMATED GFR IS NOT = 1092) ACCURATE CREA TININE CLEARANCE IN PRE DICTING GLOMERULAR FILTR ATION RATE. ESTIMATED GFR IS NOT APPLICABLE F OR DIALYSIS PATIENT S. Sagger Filler ID - MATTAYA LSpecimen slightly ictericCBC W/PLT COUNT & AUTO [id number] 13:34:00 Test Item Value Reference Range Comments WHITE BLOOD CELL COUNT (BEAKER) (test code = 16.4 K/ L 3.5 -10.5 775) RED BLOOD CELL COUNT (BEAKER) (test code = 761) 2.04 M/ L 3.93-5.22 HEMOGLOBIN (BEAKER) (test code = 410) 6.6 GM/DL 11.2-15.7 HEMATOCRIT (BEAKER) (test code = 411) 20.9 % 34.1-44.9 MEAN CORPUSCULAR VOLUME (BEAKER) (test code = 102.5 fL 79 .4-94.8 753) MEAN CORPUSCULAR HEMOGLOBIN (BEAKER) (test code 32.4 pg 25.6-32.2 = 751) MEAN CORPUSCULAR HEMOGLOBIN CONC (BEAKER) (test 31.6 GM/DL 32.2-35.5 code = 752) RED CELL DISTRIBUTION WIDTH (BEAKER) (test code 30.8 % 11.7-14.4 = 412) PLATELET COUNT (BEAKER) (test code = 756) 151 K/CU MM 150-45 0 MEAN PLATELET VOLUME (BEAKER) (test code = 754) 10.5 fL 9.4-12.3 NUCLEATED RED BLOOD CELLS (BEAKER) (test code = 60 /100 WBC 0-0 413) (CELLAVISION MANUAL DIFF)2019-09-26 13:34:00 Test Item Value Reference Range Comments NEUTROPHILS - REL (CELLAVISION)(BEAKER) (test 46 % code = 2816) LYMPHOCYTES - REL (CELLAVISION)(BEAKER) (test 34 % code = 2817) MONOCYTES - REL (CELLAVISION)(BEAKER) (test code 19 % = 2818) EOSINOPHILS - REL (CELLAVISION)(BEAKER) (test 1 % code = 2819) NEUTROPHILS - ABS (CELLAVISION)(BEAKER) (test 7.54 K/ul 1. 56-6.13 code = 2830) LYMPHOCYTES - ABS (CELLAVISION)(BEAKER) (test 5.58 K/ul 1. 18-3.74 code = 2831) MONOCYTES - ABS (CELLAVISION)(BEAKER) (test code 3.12 K/uL 0.24-0.36 = 2832) EOSINOPHILS - ABS (CELLAVISION)(BEAKER) (test 0.16 K/uL 0. 04-0.36 code = 2834) TOTAL COUNTED (BEAKER) (test code = 1351) 100 MANUAL NRBC PER 100 CELLS (BEAKER) (test code = 73 /100 WBC 0-0 1353) WBC MORPHOLOGY (BEAKER) (test code = 487) Normal GIANT PLATELETS (BEAKER) (test code = 313) Present POLYCHROMATOPHILLIC RBCS(BEAKER) (test code = 3+ many 478) HYPOCHROMIA (BEAKER) (test code = 963) 2+ moderate ANISOCYTOSIS (BEAKER) (test code = 961) 3+ many MACROCYTES (BEAKER) (test code = 964) 3+ many POIKILOCYTES (BEAKER) (test code = 966) 2+ moderate TARGET CELLS (BEAKER) (test code = 480) 2+ moderate SCHISTOCYTES (BEAKER) (test code = 765) 1+ few SICKLE CELLS (BEAKER) (test code = 767) 2+ moderate OVALOCYTES (BEAKER) (test code = 477) 1+ few TEAR DROP CELLS (BEAKER) (test code = 481) 1+ few BASOPHILIC STIPPLING (BEAKER) (test code = 473) Present ARTIFACT (CELLAVISION)(BEAKER) (test code = Present 3432) PAPPENHEIMER (CELLAVISION)(BEAKER) (test code = 1+ few 3435) PLATELET CONCENTRATION (CELLAVISION)(BEAKER) Adequate (test code = 3438) Sagger Filler ID - Jada Recinos comments: Slide comments: WBC: SEGMENTED WITH TOXIC GRANULATIONS PRESENTBASIC METABOLIC [id number] 06:47:00 Test Item Value Reference Range Comments SODIUM (BEAKER) (test 141 meq/L 136-145 code = 381) POTASSIUM (BEAKER) (test 4.3 meq/L 3.5-5.1 Specime n slightly code = 379) hemolyzed CHLORIDE (BEAKER) (test 108 meq/L 98-107 code = 382) CO2 (BEAKER) (test code = 27 meq/L 22-29 355) BLOOD UREA NITROGEN 5 mg/dL 7-21 (BEAKER) (test code = 354) CREATININE (BEAKER) (test 0.64 mg/dL 0.57-1.25 Specim en slightly code = 358) hemolyzed GLUCOSE RANDOM (BEAKER) 114 mg/dL 70-105 (test code = 652) CALCIUM (BEAKER) (test 9.5 mg/dL 8.4-10.2 code = 697) EGFR (BEAKER) (test code 125 mL/min/1.73 sq m ES TIMATED GFR IS NOT = 1092) ACCURATE CREA TININE CLEARANCE IN PRE DICTING GLOMERULAR FILTR ATION RATE. ESTIMATED GFR IS NOT APPLICABLE F OR DIALYSIS PATIENT S. Sagger Filler ID - THOA Bolanosecimelasha slightly ictericANG, REMOVAL OF TUNNELED CVC W/PORT 2019-09-25 11:46:00Reason for exam:->infectedAddendum BeginsREPORT STATUS:A Addendum:ANESTHESIA: Conscious sedation was provided by radiology nursing using constant hemodynamic monitoring for 30 minutes. Versed IV 0.5 mg, Dilaudid 2 mg. Signed: Lawrence Rey MDReport Verified Date/Time: 09/25/2019 11:46:52 Reading Location: [place] [address] Angio Body Reading RoomAddendum EndsFINAL REPORT PROCEDURE: Venous Port Removal CLINICAL HISTORY: infected AIR [employer]RAKE MECHANIC: Lawrence Rey DO, PEPE ANESTHESIA: Local lidocaine. RADIATION DOSE INFORMATION: (Ka,r) 2 mGy. Estimated Blood Loss: < 5cc Samples: None. PROCEDURE: The risks, benefits, and alternatives to the procedure were discussed with the patient. All questions were answered and written informed consent was obtained. A universal timeout was performed prior to starting the procedure. For Prevention of Central Venous Catheter (CVC)-Related Bloodstream Infections all elements of maximal sterile barrier technique, hand hygiene, skin preparation and sterile techniques were followed. Preprocedure imaging was obtained. After local anesthesia, an incision was made through the existing scar over the right chest port reservoir. Using sharp and blunt dissection and gentle traction, the port reservoir and catheter were removed in their entirety. After confirming hemostasis, the pocket was closed with 3-0 Vicryl suture. The incision was covered with glue, Steri-Strips and a sterile dressing. The patient tolerated the procedure well without immediate complication. IMPRESSION: Successful removal of a right IJV chest port. Signed: Lawrence Rey MDReport Verified Date/Time: 09/25/2019 11:37:20 Reading Location: [place] [address] Angio Body Reading Room CBC W/PLT COUNT & AUTO [id number] 11:09:00 Test Item Value Reference Range Comments WHITE BLOOD CELL COUNT 15.7 K/ L 3.5-10.5 (BEAKER) (test code = 775) RED BLOOD CELL COUNT (BEAKER) 1.70 M/ L 3.93-5.22 (test code = 761) HEMOGLOBIN (BEAKER) (test code 5.7 GM/DL 11.2-15.7 = 410) HEMATOCRIT (BEAKER) (test code 17.8 % 34.1-44.9 = 411) MEAN CORPUSCULAR VOLUME 104.7 fL 79.4-94.8 (BEAKER) (test code = 753) MEAN CORPUSCULAR HEMOGLOBIN 33.5 pg 25.6-32.2 (BEAKER) (test code = 751) MEAN CORPUSCULAR HEMOGLOBIN 32.0 GM/DL 32.2-35.5 CONC (BEAKER) (test code = 752) RED CELL DISTRIBUTION WIDTH Unab le to report due to (BEAKER) (test code = 412) abnor mal RBC population distribution. PLATELET COUNT (BEAKER) (test 193 K/CU MM 150-450 code = 756) MEAN PLATELET VOLUME (BEAKER) 10.6 fL 9.4-12.3 (test code = 754) NUCLEATED RED BLOOD CELLS 70 /100 WBC 0-0 (BEAKER) (test code = 413) (CELLAVISION MANUAL DIFF)2019-09-25 11:09:00 Test Item Value Reference Range Comments NEUTROPHILS - REL (CELLAVISION)(BEAKER) (test 33 % code = 2816) LYMPHOCYTES - REL (CELLAVISION)(BEAKER) (test 44 % code = 2817) MONOCYTES - REL (CELLAVISION)(BEAKER) (test code 19 % = 2818) EOSINOPHILS - REL (CELLAVISION)(BEAKER) (test 1 % code = 2819) BASOPHILS - REL (CELLAVISION)(BEAKER) (test code 1 % = 2820) MYELOCYTES - REL (CELLAVISION)(BEAKER) (test 1 % 0-0 code = 2822) BANDS - REL (CELLAVISION)(BEAKER) (test code = 1 % 0 -10 2826) NEUTROPHILS - ABS (CELLAVISION)(BEAKER) (test 5.18 K/ul 1. 56-6.13 code = 2830) LYMPHOCYTES - ABS (CELLAVISION)(BEAKER) (test 6.91 K/ul 1. 18-3.74 code = 2831) MONOCYTES - ABS (CELLAVISION)(BEAKER) (test code 2.98 K/uL 0.24-0.36 = 2832) EOSINOPHILS - ABS (CELLAVISION)(BEAKER) (test 0.16 K/uL 0. 04-0.36 code = 2834) BASOPHILS - ABS (CELLAVISION)(BEAKER) (test code 0.16 K/uL 0.01-0.08 = 2835) MYELOCYTES-ABS (CELLAVISION)(BEAKER) (test code 0.16 K/uL 0.00-0.00 = 2837) BANDS - ABS (CELLAVISION)(BEAKER) (test code = 0.16 K/uL 0 .00-0.80 2840) TOTAL COUNTED (BEAKER) (test code = 1351) 100 MANUAL NRBC PER 100 CELLS (BEAKER) (test code = 71 /100 WBC 0-0 1353) WBC MORPHOLOGY (BEAKER) (test code = 487) Normal PLT MORPHOLOGY (BEAKER) (test code = 486) Normal POLYCHROMATOPHILLIC RBCS(BEAKER) (test code = 3+ many 478) HYPOCHROMIA (BEAKER) (test code = 963) 1+ few ANISOCYTOSIS (BEAKER) (test code = 961) 3+ many MACROCYTES (BEAKER) (test code = 964) 3+ many POIKILOCYTES (BEAKER) (test code = 966) 2+ moderate TARGET CELLS (BEAKER) (test code = 480) 1+ few SICKLE CELLS (BEAKER) (test code = 767) 1+ few MATTHEWS-JOLLY BODIES (BEAKER) (test code = 475) 1+ few ARTIFACT (CELLAVISION)(BEAKER) (test code = Present 3432) PAPPENHEIMER (CELLAVISION)(BEAKER) (test code = 1+ few 3435) PLATELET CONCENTRATION (CELLAVISION)(BEAKER) Adequate (test code = 3438) Sagger Filler ID - [id number] ID - Amber OverholtUser comments: Slide comments:BASIC METABOLIC [id number] 10:16:00 Test Item Value Reference Range Comments SODIUM (BEAKER) (test 141 meq/L 136-145 code = 381) POTASSIUM (BEAKER) (test 4.7 meq/L 3.5-5.1 Specime n slightly code = 379) hemolyzed CHLORIDE (BEAKER) (test 109 meq/L 98-107 code = 382) CO2 (BEAKER) (test code = 29 meq/L 22-29 355) BLOOD UREA NITROGEN 6 mg/dL 7-21 (BEAKER) (test code = 354) CREATININE (BEAKER) (test 0.59 mg/dL 0.57-1.25 Specim en slightly code = 358) hemolyzed GLUCOSE RANDOM (BEAKER) 100 mg/dL 70-105 (test code = 652) CALCIUM (BEAKER) (test 9.5 mg/dL 8.4-10.2 code = 697) EGFR (BEAKER) (test code 137 mL/min/1.73 sq m ES TIMATED GFR IS NOT = 1092) ACCURATE CREA TININE CLEARANCE IN PRE DICTING GLOMERULAR FILTR ATION RATE. ESTIMATED GFR IS NOT APPLICABLE F OR DIALYSIS PATIENT S. Sagger Filler ID - LMSpecimen slightly ictericPT/[id number] 05:53:00 Test Item Value Reference Range Comments PROTIME (BEAKER) (test code = 759) 14.4 seconds 11.9-14.2 INR (BEAKER) (test code = 370) 1.2 <=5.9 PARTIAL THROMBOPLASTIN TIME (BEAKER) (test code 31.4 seconds 22.5-36.0 = 760) Effective 01/15/2019: PT Reference Range ChangeNew: 11.9-14.2 Previous: 11.7- 14.7RECOMMENDED COUMADIN/WARFARIN INR THERAPY RANGESSTANDARD DOSE: 2.0-3.0 Includes: PROPHYLAXIS for venous thrombosis, systemic embolization; TREATMENT for venous thrombosis and/or pulmonary embolus.HIGH RISK: Target INR is2.5-3.5 for patients wiht mechanical heart valves. SCREEN, [id number] 23:22:00 Test Item Value Reference Range Comments TEST URINE (BEAKER) (test code = 583) Negative CBC W/PLT COUNT & AUTO [id number] 14:10:00 Test Item Value Reference Range Comments WHITE BLOOD CELL COUNT 21.0 K/ L 3.5-10.5 (BEAKER) (test code = 775) RED BLOOD CELL COUNT (BEAKER) 1.77 M/ L 3.93-5.22 (test code = 761) HEMOGLOBIN (BEAKER) (test code 5.8 GM/DL 11.2-15.7 = 410) HEMATOCRIT (BEAKER) (test code 18.0 % 34.1-44.9 = 411) MEAN CORPUSCULAR VOLUME 101.7 fL 79.4-94.8 (BEAKER) (test code = 753) MEAN CORPUSCULAR HEMOGLOBIN 32.8 pg 25.6-32.2 (BEAKER) (test code = 751) MEAN CORPUSCULAR HEMOGLOBIN 32.2 GM/DL 32.2-35.5 CONC (BEAKER) (test code = 752) RED CELL DISTRIBUTION WIDTH Unab le to report due to (BEAKER) (test code = 412) abnor mal RBC population distribution. PLATELET COUNT (BEAKER) (test 251 K/CU MM 150-450 code = 756) MEAN PLATELET VOLUME (BEAKER) 11.5 fL 9.4-12.3 (test code = 754) NUCLEATED RED BLOOD CELLS 47 /100 WBC 0-0 (BEAKER) (test code = 413) (CELLAVISION MANUAL DIFF)2019-09-24 14:10:00 Test Item Value Reference Range Comments NEUTROPHILS - REL (CELLAVISION)(BEAKER) (test 36 % code = 2816) LYMPHOCYTES - REL (CELLAVISION)(BEAKER) (test 45 % code = 2817) MONOCYTES - REL (CELLAVISION)(BEAKER) (test code 17 % = 2818) EOSINOPHILS - REL (CELLAVISION)(BEAKER) (test 2 % code = 2819) NEUTROPHILS - ABS (CELLAVISION)(BEAKER) (test 7.56 K/ul 1. 56-6.13 code = 2830) LYMPHOCYTES - ABS (CELLAVISION)(BEAKER) (test 9.45 K/ul 1. 18-3.74 code = 2831) MONOCYTES - ABS (CELLAVISION)(BEAKER) (test code 3.57 K/uL 0.24-0.36 = 2832) EOSINOPHILS - ABS (CELLAVISION)(BEAKER) (test 0.42 K/uL 0. 04-0.36 code = 2834) TOTAL COUNTED (BEAKER) (test code = 1351) 100 MANUAL NRBC PER 100 CELLS (BEAKER) (test code = 44 /100 WBC 0-0 1353) PLT MORPHOLOGY (BEAKER) (test code = 486) Normal TOXIC GRANULATION (BEAKER) (test code = 771) Present POLYCHROMATOPHILLIC RBCS(BEAKER) (test code = 3+ many 478) HYPOCHROMIA (BEAKER) (test code = 963) 1+ few ANISOCYTOSIS (BEAKER) (test code = 961) 3+ many MICROCYTES (BEAKER) (test code = 965) 1+ few MACROCYTES (BEAKER) (test code = 964) 1+ few POIKILOCYTES (BEAKER) (test code = 966) 2+ moderate TARGET CELLS (BEAKER) (test code = 480) 1+ few SICKLE CELLS (BEAKER) (test code = 767) 1+ few TEAR DROP CELLS (BEAKER) (test code = 481) 1+ few ARTIFACT (CELLAVISION)(BEAKER) (test code = Present 3432) PLATELET CONCENTRATION (CELLAVISION)(BEAKER) Adequate (test code = 3438) Sagger Filler ID - [id number] ID - Em [place] comments: Slide comments:(MANUAL DIFFERENTIAL)2019-07-20 10:51:00 Test Item Value Reference Range Comments NEUTROPHILS - REL (DIFF) (BEAKER) (test code = 48 % 1359) LYMPHOCYTES - REL (DIFF) (BEAKER) (test code = 19 % 1360) MONOCYTES - REL (DIFF) (BEAKER) (test code = 29 % 1361) EOSINOPHILS - REL (DIFF) (BEAKER) (test code = 3 % 1362) ATYPICAL LYMPHOCYTE - REL (DIFF) (BEAKER) (test 1 % 0-0 code = 260) NEUTROPHILS - ABS (DIFF) (BEAKER) (test code = 7.15 K/ L 1 .80-8.00 1365) LYMPHOCYTES - ABS (DIFF) (BEAKER) (test code = 2.83 K/ L 1 .48-4.50 1366) MONOCYTES - ABS (DIFF) (BEAKER) (test code = 4.32 K/ L 0.0 0-1.30 1367) EOSINOPHILS - ABS (DIFF) (BEAKER) (test code = 0.45 K/ L 0 .00-0.50 1368) ATYPICAL LYMPHOCYTES - ABS (DIFF) (BEAKER) (test 0.15 K/ L 0.00-0.00 code = 263) TOTAL COUNTED (BEAKER) (test code = 1351) 100 WBC MORPHOLOGY (BEAKER) (test code = 487) Normal PLT MORPHOLOGY (BEAKER) (test code = 486) Normal HYPOCHROMIA (BEAKER) (test code = 963) 2+ moderate SICKLE CELLS (BEAKER) (test code = 767) 3+ many TARGET CELLS (BEAKER) (test code = 480) 2+ moderate TEAR DROP CELLS (BEAKER) (test code = 481) 1+ few CBC W/PLT COUNT & AUTO [id number] 10:49:00 Test Item Value Reference Range Comments WHITE BLOOD CELL COUNT (BEAKER) (test code = 14.9 K/ L 4.0 -10.0 775) RED BLOOD CELL COUNT (BEAKER) (test code = 761) 2.58 M/ L 4.00-5.00 HEMOGLOBIN (BEAKER) (test code = 410) 7.5 GM/DL 12.0-15.5 HEMATOCRIT (BEAKER) (test code = 411) 22.8 % 36.0-46.0 MEAN CORPUSCULAR VOLUME (BEAKER) (test code = 88.4 fL 82 .0-99.0 753) MEAN CORPUSCULAR HEMOGLOBIN (BEAKER) (test code 29.1 pg 27.0-33.0 = 751) MEAN CORPUSCULAR HEMOGLOBIN CONC (BEAKER) (test 32.9 GM/DL 32.0-36.0 code = 752) RED CELL DISTRIBUTION WIDTH (BEAKER) (test code 21.8 % 12.0-15.0 = 412) PLATELET COUNT (BEAKER) (test code = 756) 245 K/CU MM 150-43 0 MEAN PLATELET VOLUME (BEAKER) (test code = 754) 9.8 fL 6.0-11.5 NUCLEATED RED BLOOD CELLS (BEAKER) (test code = 0 /100 WBC 0-0 413) RETICULOCYTE [id number] 09:49:00 Test Item Value Reference Range Comments RETICULOCYTE COUNT PCT (BEAKER) (test code = 575) 5.0 % 0.4-2.9 CBC W/PLT COUNT & AUTO [id number] 07:19:00 Test Item Value Reference Range Comments WHITE BLOOD CELL COUNT (BEAKER) (test code = 17.0 K/ L 4.0 -10.0 775) RED BLOOD CELL COUNT (BEAKER) (test code = 761) 2.03 M/ L 4.00-5.00 HEMOGLOBIN (BEAKER) (test code = 410) 5.9 GM/DL 12.0-15.5 HEMATOCRIT (BEAKER) (test code = 411) 18.5 % 36.0-46.0 MEAN CORPUSCULAR VOLUME (BEAKER) (test code = 91.1 fL 82 .0-99.0 753) MEAN CORPUSCULAR HEMOGLOBIN (BEAKER) (test code 29.1 pg 27.0-33.0 = 751) MEAN CORPUSCULAR HEMOGLOBIN CONC (BEAKER) (test 31.9 GM/DL 32.0-36.0 code = 752) RED CELL DISTRIBUTION WIDTH (BEAKER) (test code 23.6 % 12.0-15.0 = 412) PLATELET COUNT (BEAKER) (test code = 756) 250 K/CU MM 150-43 0 MEAN PLATELET VOLUME (BEAKER) (test code = 754) 10.4 fL 6.0-11.5 NUCLEATED RED BLOOD CELLS (BEAKER) (test code = 0 /100 WBC 0-0 413) NEUTROPHILS RELATIVE PERCENT (BEAKER) (test code 45 % = 429) LYMPHOCYTES RELATIVE PERCENT (BEAKER) (test code 28 % = 430) MONOCYTES RELATIVE PERCENT (BEAKER) (test code = 24 % 431) EOSINOPHILS RELATIVE PERCENT (BEAKER) (test code 3 % = 432) BASOPHILS RELATIVE PERCENT (BEAKER) (test code = 0 % 437) NEUTROPHILS ABSOLUTE COUNT (BEAKER) (test code = 7.59 K/ L 1.80-8.00 670) LYMPHOCYTES ABSOLUTE COUNT (BEAKER) (test code = 4.80 K/ L 1.48-4.50 414) MONOCYTES ABSOLUTE COUNT (BEAKER) (test code = 3.99 K/ L 0 .00-1.30 415) EOSINOPHILS ABSOLUTE COUNT (BEAKER) (test code = 0.47 K/ L 0.00-0.50 416) BASOPHILS ABSOLUTE COUNT (BEAKER) (test code = 0.05 K/ L 0 .00-0.20 417) IMMATURE GRANULOCYTES-RELATIVE PERCENT (BEAKER) 0 % 0-0 (test code = 2801) (MANUAL DIFFERENTIAL)2019-07-19 07:19:00 Test Item Value Reference Range Comments NEUTROPHILS - REL (DIFF) (BEAKER) (test code = 53 % 1359) LYMPHOCYTES - REL (DIFF) (BEAKER) (test code = 30 % 1360) MONOCYTES - REL (DIFF) (BEAKER) (test code = 1361) 11 % EOSINOPHILS - REL (DIFF) (BEAKER) (test code = 4 % 1362) ATYPICAL LYMPHOCYTE - REL (DIFF) (BEAKER) (test 2 % 0-0 code = 260) NEUTROPHILS - ABS (DIFF) (BEAKER) (test code = 9.01 K/ L 1 .80-8.00 1365) LYMPHOCYTES - ABS (DIFF) (BEAKER) (test code = 5.10 K/ L 1 .48-4.50 1366) MONOCYTES - ABS (DIFF) (BEAKER) (test code = 1367) 1.87 K/ L 0.00-1.30 EOSINOPHILS - ABS (DIFF) (BEAKER) (test code = 0.68 K/ L 0 .00-0.50 1368) ATYPICAL LYMPHOCYTES - ABS (DIFF) (BEAKER) (test 0.34 K/ L 0.00-0.00 code = 263) TOTAL COUNTED (BEAKER) (test code = 1351) 100 WBC MORPHOLOGY (BEAKER) (test code = 487) Normal PLT MORPHOLOGY (BEAKER) (test code = 486) Normal ANISOCYTOSIS (BEAKER) (test code = 961) 1+ few HYPOCHROMIA (BEAKER) (test code = 963) 1+ few POIKILOCYTES (BEAKER) (test code = 966) 1+ few SICKLE CELLS (BEAKER) (test code = 767) 1+ few TARGET CELLS (BEAKER) (test code = 480) 1+ few RETICULOCYTE [id number] 06:38:00 Test Item Value Reference Range Comments RETICULOCYTE COUNT PCT (BEAKER) (test code = 575) 5.4 % 0.4-2.9 CBC W/PLT COUNT & AUTO [id number] 05:39:00 Test Item Value Reference Range Comments WHITE BLOOD CELL COUNT (BEAKER) (test code = 15.2 K/ L 4.0 -10.0 775) RED BLOOD CELL COUNT (BEAKER) (test code = 761) 2.06 M/ L 4.00-5.00 HEMOGLOBIN (BEAKER) (test code = 410) 6.2 GM/DL 12.0-15.5 HEMATOCRIT (BEAKER) (test code = 411) 18.8 % 36.0-46.0 MEAN CORPUSCULAR VOLUME (BEAKER) (test code = 91.3 fL 82 .0-99.0 753) MEAN CORPUSCULAR HEMOGLOBIN (BEAKER) (test code 30.1 pg 27.0-33.0 = 751) MEAN CORPUSCULAR HEMOGLOBIN CONC (BEAKER) (test 33.0 GM/DL 32.0-36.0 code = 752) RED CELL DISTRIBUTION WIDTH (BEAKER) (test code 23.5 % 12.0-15.0 = 412) PLATELET COUNT (BEAKER) (test code = 756) 189 K/CU MM 150-43 0 MEAN PLATELET VOLUME (BEAKER) (test code = 754) 9.9 fL 6.0-11.5 NUCLEATED RED BLOOD CELLS (BEAKER) (test code = 0 /100 WBC 0-0 413) NEUTROPHILS RELATIVE PERCENT (BEAKER) (test code 40 % = 429) LYMPHOCYTES RELATIVE PERCENT (BEAKER) (test code 36 % = 430) MONOCYTES RELATIVE PERCENT (BEAKER) (test code = 21 % 431) EOSINOPHILS RELATIVE PERCENT (BEAKER) (test code 3 % = 432) BASOPHILS RELATIVE PERCENT (BEAKER) (test code = 0 % 437) NEUTROPHILS ABSOLUTE COUNT (BEAKER) (test code = 6.02 K/ L 1.80-8.00 670) LYMPHOCYTES ABSOLUTE COUNT (BEAKER) (test code = 5.45 K/ L 1.48-4.50 414) MONOCYTES ABSOLUTE COUNT (BEAKER) (test code = 3.13 K/ L 0 .00-1.30 415) EOSINOPHILS ABSOLUTE COUNT (BEAKER) (test code = 0.49 K/ L 0.00-0.50 416) BASOPHILS ABSOLUTE COUNT (BEAKER) (test code = 0.05 K/ L 0 .00-0.20 417) IMMATURE GRANULOCYTES-RELATIVE PERCENT (BEAKER) 0 % 0-0 (test code = 2801) (MANUAL DIFFERENTIAL)2019-07-18 05:39:00 Test Item Value Reference Range Comments NEUTROPHILS - REL (DIFF) (BEAKER) (test code = 34 % 1359) LYMPHOCYTES - REL (DIFF) (BEAKER) (test code = 45 % 1360) MONOCYTES - REL (DIFF) (BEAKER) (test code = 19 % 1361) EOSINOPHILS - REL (DIFF) (BEAKER) (test code = 1 % 1362) BASOPHILS - REL (DIFF) (BEAKER) (test code = 1 % 1363) NEUTROPHILS - ABS (DIFF) (BEAKER) (test code = 5.17 K/ L 1 .80-8.00 1365) LYMPHOCYTES - ABS (DIFF) (BEAKER) (test code = 6.84 K/ L 1 .48-4.50 1366) MONOCYTES - ABS (DIFF) (BEAKER) (test code = 2.89 K/ L 0.0 0-1.30 1367) EOSINOPHILS - ABS (DIFF) (BEAKER) (test code = 0.15 K/ L 0 .00-0.50 1368) BASOPHILS - ABS (DIFF) (BEAKER) (test code = 0.15 K/ L 0.0 0-0.20 1369) TOTAL COUNTED (BEAKER) (test code = 1351) 100 MANUAL NRBC PER 100 CELLS (BEAKER) (test code = 1 /100 WBC 0-0 1353) WBC MORPHOLOGY (BEAKER) (test code = 487) Normal LARGE PLT(BEAKER) (test code = 2156) Present ANISOCYTOSIS (BEAKER) (test code = 961) 2+ moderate SICKLE CELLS (BEAKER) (test code = 767) 1+ few TARGET CELLS (BEAKER) (test code = 480) 1+ few CBC W/PLT COUNT & AUTO [id number] 06:39:00 Test Item Value Reference Range Comments WHITE BLOOD CELL COUNT (BEAKER) (test code = 14.8 K/ L 4.0 -10.0 775) RED BLOOD CELL COUNT (BEAKER) (test code = 761) 2.22 M/ L 4.00-5.00 HEMOGLOBIN (BEAKER) (test code = 410) 6.5 GM/DL 12.0-15.5 HEMATOCRIT (BEAKER) (test code = 411) 20.2 % 36.0-46.0 MEAN CORPUSCULAR VOLUME (BEAKER) (test code = 91.0 fL 82 .0-99.0 753) MEAN CORPUSCULAR HEMOGLOBIN (BEAKER) (test code 29.3 pg 27.0-33.0 = 751) MEAN CORPUSCULAR HEMOGLOBIN CONC (BEAKER) (test 32.2 GM/DL 32.0-36.0 code = 752) RED CELL DISTRIBUTION WIDTH (BEAKER) (test code 23.7 % 12.0-15.0 = 412) PLATELET COUNT (BEAKER) (test code = 756) 214 K/CU MM 150-43 0 MEAN PLATELET VOLUME (BEAKER) (test code = 754) 10.0 fL 6.0-11.5 NUCLEATED RED BLOOD CELLS (BEAKER) (test code = 0 /100 WBC 0-0 413) NEUTROPHILS RELATIVE PERCENT (BEAKER) (test code 39 % = 429) LYMPHOCYTES RELATIVE PERCENT (BEAKER) (test code 32 % = 430) MONOCYTES RELATIVE PERCENT (BEAKER) (test code = 26 % 431) EOSINOPHILS RELATIVE PERCENT (BEAKER) (test code 3 % = 432) BASOPHILS RELATIVE PERCENT (BEAKER) (test code = 0 % 437) NEUTROPHILS ABSOLUTE COUNT (BEAKER) (test code = 5.80 K/ L 1.80-8.00 670) LYMPHOCYTES ABSOLUTE COUNT (BEAKER) (test code = 4.64 K/ L 1.48-4.50 414) MONOCYTES ABSOLUTE COUNT (BEAKER) (test code = 3.76 K/ L 0 .00-1.30 415) EOSINOPHILS ABSOLUTE COUNT (BEAKER) (test code = 0.45 K/ L 0.00-0.50 416) BASOPHILS ABSOLUTE COUNT (BEAKER) (test code = 0.06 K/ L 0 .00-0.20 417) IMMATURE GRANULOCYTES-RELATIVE PERCENT (BEAKER) 0 % 0-0 (test code = 2801) (MANUAL DIFFERENTIAL)2019-07-17 06:39:00 Test Item Value Reference Range Comments NEUTROPHILS - REL (DIFF) (BEAKER) (test code = 40 % 1359) LYMPHOCYTES - REL (DIFF) (BEAKER) (test code = 26 % 1360) MONOCYTES - REL (DIFF) (BEAKER) (test code = 27 % 1361) EOSINOPHILS - REL (DIFF) (BEAKER) (test code = 6 % 1362) BANDS - REL (DIFF) (BEAKER) (test code = 1348) 1 % 0 -10 NEUTROPHILS - ABS (DIFF) (BEAKER) (test code = 5.92 K/ L 1 .80-8.00 1365) LYMPHOCYTES - ABS (DIFF) (BEAKER) (test code = 3.85 K/ L 1 .48-4.50 1366) MONOCYTES - ABS (DIFF) (BEAKER) (test code = 4.00 K/ L 0.0 0-1.30 1367) EOSINOPHILS - ABS (DIFF) (BEAKER) (test code = 0.89 K/ L 0 .00-0.50 1368) BANDS-ABS (DIFF) (BEAKER) (test code = 1349) 0.1 K/ L 0.0 -0.8 TOTAL COUNTED (BEAKER) (test code = 1351) 100 BANDS + SEGMENTED NEUTROPHILS (BEAKER) (test 6.07 code = 1352) WBC MORPHOLOGY (BEAKER) (test code = 487) Normal LARGE PLT(BEAKER) (test code = 2156) Present GIANT PLATELETS (BEAKER) (test code = 313) Present ANISOCYTOSIS (BEAKER) (test code = 961) 2+ moderate SICKLE CELLS (BEAKER) (test code = 767) 1+ few STOMATOCYTES (BEAKER) (test code = 479) 1+ few TARGET CELLS (BEAKER) (test code = 480) 1+ few BASIC METABOLIC [id number] 05:53:00 Test Item Value Reference Range Comments SODIUM (BEAKER) (test 139 meq/L 135-148 code = 381) POTASSIUM (BEAKER) (test 4.5 meq/L 3.6-5.5 code = 379) CHLORIDE (BEAKER) (test 103 meq/L 98-106 code = 382) CO2 (BEAKER) (test code = 28 meq/L 20-29 355) BLOOD UREA NITROGEN 16 mg/dL 10-26 (BEAKER) (test code = 354) CREATININE (BEAKER) (test 0.61 mg/dL 0.50-1.20 code = 358) GLUCOSE RANDOM (BEAKER) 97 mg/dL 70-110 (test code = 652) CALCIUM (BEAKER) (test 9.5 mg/dL 8.5-10.5 code = 697) EGFR (BEAKER) (test code 132 mL/min/1.73 sq m ES TIMATED GFR IS NOT = 1092) ACCURATE CREA TININE CLEARANCE IN PRE DICTING GLOMERULAR FILTR ATION RATE. ESTIMATED GFR IS NOT APPLICABLE F OR DIALYSIS PATIENT S. CBC W/PLT COUNT & AUTO [id number] 07:08:00 Test Item Value Reference Range Comments WHITE BLOOD CELL COUNT (BEAKER) (test code = 13.2 K/ L 4.0 -10.0 775) RED BLOOD CELL COUNT (BEAKER) (test code = 761) 2.27 M/ L 4.00-5.00 HEMOGLOBIN (BEAKER) (test code = 410) 6.9 GM/DL 12.0-15.5 HEMATOCRIT (BEAKER) (test code = 411) 20.4 % 36.0-46.0 MEAN CORPUSCULAR VOLUME (BEAKER) (test code = 89.9 fL 82 .0-99.0 753) MEAN CORPUSCULAR HEMOGLOBIN (BEAKER) (test code 30.4 pg 27.0-33.0 = 751) MEAN CORPUSCULAR HEMOGLOBIN CONC (BEAKER) (test 33.8 GM/DL 32.0-36.0 code = 752) RED CELL DISTRIBUTION WIDTH (BEAKER) (test code 23.9 % 12.0-15.0 = 412) PLATELET COUNT (BEAKER) (test code = 756) 207 K/CU MM 150-43 0 MEAN PLATELET VOLUME (BEAKER) (test code = 754) 10.3 fL 6.0-11.5 NUCLEATED RED BLOOD CELLS (BEAKER) (test code = 1 /100 WBC 0-0 413) (MANUAL DIFFERENTIAL)2019-07-16 07:08:00 Test Item Value Reference Range Comments NEUTROPHILS - REL (DIFF) (BEAKER) (test code = 41 % 1359) LYMPHOCYTES - REL (DIFF) (BEAKER) (test code = 24 % 1360) MONOCYTES - REL (DIFF) (BEAKER) (test code = 26 % 1361) EOSINOPHILS - REL (DIFF) (BEAKER) (test code = 3 % 1362) BASOPHILS - REL (DIFF) (BEAKER) (test code = 1 % 1363) ATYPICAL LYMPHOCYTE - REL (DIFF) (BEAKER) (test 5 % 0-0 code = 260) NEUTROPHILS - ABS (DIFF) (BEAKER) (test code = 5.41 K/ L 1 .80-8.00 1365) LYMPHOCYTES - ABS (DIFF) (BEAKER) (test code = 3.17 K/ L 1 .48-4.50 1366) MONOCYTES - ABS (DIFF) (BEAKER) (test code = 3.43 K/ L 0.0 0-1.30 1367) EOSINOPHILS - ABS (DIFF) (BEAKER) (test code = 0.40 K/ L 0 .00-0.50 1368) BASOPHILS - ABS (DIFF) (BEAKER) (test code = 0.13 K/ L 0.0 0-0.20 1369) ATYPICAL LYMPHOCYTES - ABS (DIFF) (BEAKER) (test 0.66 K/ L 0.00-0.00 code = 263) TOTAL COUNTED (BEAKER) (test code = 1351) 100 MANUAL NRBC PER 100 CELLS (BEAKER) (test code = 1 /100 WBC 0-0 1353) WBC MORPHOLOGY (BEAKER) (test code = 487) Normal LARGE PLT(BEAKER) (test code = 2156) Present ANISOCYTOSIS (BEAKER) (test code = 961) 2+ moderate HYPOCHROMIA (BEAKER) (test code = 963) 1+ few MACROCYTES (BEAKER) (test code = 964) 1+ few SICKLE CELLS (BEAKER) (test code = 767) 1+ few TARGET CELLS (BEAKER) (test code = 480) 1+ few BASIC METABOLIC [id number] 06:11:00 Test Item Value Reference Range Comments SODIUM (BEAKER) (test 139 meq/L 135-148 code = 381) POTASSIUM (BEAKER) (test 5.6 meq/L 3.6-5.5 code = 379) CHLORIDE (BEAKER) (test 104 meq/L 98-106 code = 382) CO2 (BEAKER) (test code = 28 meq/L 20-29 355) BLOOD UREA NITROGEN 20 mg/dL 10-26 (BEAKER) (test code = 354) CREATININE (BEAKER) (test 0.62 mg/dL 0.50-1.20 code = 358) GLUCOSE RANDOM (BEAKER) 90 mg/dL 70-110 (test code = 652) CALCIUM (BEAKER) (test 9.6 mg/dL 8.5-10.5 code = 697) EGFR (BEAKER) (test code 129 mL/min/1.73 sq m ES TIMATED GFR IS NOT = 1092) ACCURATE CREA TININE CLEARANCE IN PRE DICTING GLOMERULAR FILTR ATION RATE. ESTIMATED GFR IS NOT APPLICABLE F OR DIALYSIS PATIENT S. [id number] 06:58:00 Test Item Value Reference Range Comments FERRITIN (BEAKER) (test code = 361) 00109 ng/mL 10-291 CBC W/PLT COUNT & AUTO [id number] 06:17:00 Test Item Value Reference Range Comments WHITE BLOOD CELL COUNT (BEAKER) (test code = 13.8 K/ L 4.0 -10.0 775) RED BLOOD CELL COUNT (BEAKER) (test code = 761) 2.47 M/ L 4.00-5.00 HEMOGLOBIN (BEAKER) (test code = 410) 7.5 GM/DL 12.0-15.5 HEMATOCRIT (BEAKER) (test code = 411) 23.0 % 36.0-46.0 MEAN CORPUSCULAR VOLUME (BEAKER) (test code = 93.1 fL 82 .0-99.0 753) MEAN CORPUSCULAR HEMOGLOBIN (BEAKER) (test code 30.4 pg 27.0-33.0 = 751) MEAN CORPUSCULAR HEMOGLOBIN CONC (BEAKER) (test 32.6 GM/DL 32.0-36.0 code = 752) RED CELL DISTRIBUTION WIDTH (BEAKER) (test code 24.1 % 12.0-15.0 = 412) PLATELET COUNT (BEAKER) (test code = 756) 210 K/CU MM 150-43 0 MEAN PLATELET VOLUME (BEAKER) (test code = 754) 9.6 fL 6.0-11.5 NUCLEATED RED BLOOD CELLS (BEAKER) (test code = 1 /100 WBC 0-0 413) NEUTROPHILS RELATIVE PERCENT (BEAKER) (test code 42 % = 429) LYMPHOCYTES RELATIVE PERCENT (BEAKER) (test code 32 % = 430) MONOCYTES RELATIVE PERCENT (BEAKER) (test code = 23 % 431) EOSINOPHILS RELATIVE PERCENT (BEAKER) (test code 3 % = 432) BASOPHILS RELATIVE PERCENT (BEAKER) (test code = 0 % 437) NEUTROPHILS ABSOLUTE COUNT (BEAKER) (test code = 5.74 K/ L 1.80-8.00 670) LYMPHOCYTES ABSOLUTE COUNT (BEAKER) (test code = 4.36 K/ L 1.48-4.50 414) MONOCYTES ABSOLUTE COUNT (BEAKER) (test code = 3.11 K/ L 0 .00-1.30 415) EOSINOPHILS ABSOLUTE COUNT (BEAKER) (test code = 0.47 K/ L 0.00-0.50 416) BASOPHILS ABSOLUTE COUNT (BEAKER) (test code = 0.06 K/ L 0 .00-0.20 417) IMMATURE GRANULOCYTES-RELATIVE PERCENT (BEAKER) 0 % 0-0 (test code = 2801) (MANUAL DIFFERENTIAL)2019-07-15 06:17:00 Test Item Value Reference Range Comments NEUTROPHILS - REL (DIFF) (BEAKER) (test code = 37 % 1359) LYMPHOCYTES - REL (DIFF) (BEAKER) (test code = 36 % 1360) MONOCYTES - REL (DIFF) (BEAKER) (test code = 23 % 1361) EOSINOPHILS - REL (DIFF) (BEAKER) (test code = 4 % 1362) NEUTROPHILS - ABS (DIFF) (BEAKER) (test code = 5.11 K/ L 1 .80-8.00 1365) LYMPHOCYTES - ABS (DIFF) (BEAKER) (test code = 4.97 K/ L 1 .48-4.50 1366) MONOCYTES - ABS (DIFF) (BEAKER) (test code = 3.17 K/ L 0.0 0-1.30 1367) EOSINOPHILS - ABS (DIFF) (BEAKER) (test code = 0.55 K/ L 0 .00-0.50 1368) TOTAL COUNTED (BEAKER) (test code = 1351) 100 WBC MORPHOLOGY (BEAKER) (test code = 487) Normal LARGE PLT(BEAKER) (test code = 2156) Present ANISOCYTOSIS (BEAKER) (test code = 961) 2+ moderate HYPOCHROMIA (BEAKER) (test code = 963) 1+ few SICKLE CELLS (BEAKER) (test code = 767) 1+ few STOMATOCYTES (BEAKER) (test code = 479) 1+ few TARGET CELLS (BEAKER) (test code = 480) 1+ few BASIC METABOLIC [id number] 05:33:00 Test Item Value Reference Range Comments SODIUM (BEAKER) (test 137 meq/L 135-148 code = 381) POTASSIUM (BEAKER) (test 5.4 meq/L 3.6-5.5 code = 379) CHLORIDE (BEAKER) (test 102 meq/L 98-106 code = 382) CO2 (BEAKER) (test code = 27 meq/L 20-29 355) BLOOD UREA NITROGEN 17 mg/dL 10-26 (BEAKER) (test code = 354) CREATININE (BEAKER) (test 0.65 mg/dL 0.50-1.20 code = 358) GLUCOSE RANDOM (BEAKER) 100 mg/dL 70-110 (test code = 652) CALCIUM (BEAKER) (test 9.9 mg/dL 8.5-10.5 code = 697) EGFR (BEAKER) (test code 122 mL/min/1.73 sq m ES TIMATED GFR IS NOT = 1092) ACCURATE CREA TININE CLEARANCE IN PRE DICTING GLOMERULAR FILTR ATION RATE. ESTIMATED GFR IS NOT APPLICABLE F OR DIALYSIS PATIENT S. Specimen slightly ictericRETICULOCYTE [id number] 05:20:00 Test Item Value Reference Range Comments RETICULOCYTE COUNT PCT (BEAKER) (test code = 575) 7.1 % 0.4-2.9 IMMATURE RETICULOCYTE [id number] 09:45:00 Test Item Value Reference Range Comments IMMATURE RETIC FRACTION (BEAKER) (test code = 1447) 25.300 % 3.000-15.900 RETICULOCYTE COUNT PCT (BEAKER) (test code = 575) 8.2 % 0.5-1.7 CBC W/PLT COUNT & AUTO [id number] 07:24:00 Test Item Value Reference Range Comments WHITE BLOOD CELL COUNT (BEAKER) (test code = 15.6 K/ L 4.0 -10.0 775) RED BLOOD CELL COUNT (BEAKER) (test code = 761) 2.19 M/ L 4.00-5.00 HEMOGLOBIN (BEAKER) (test code = 410) 6.6 GM/DL 12.0-15.5 HEMATOCRIT (BEAKER) (test code = 411) 20.3 % 36.0-46.0 MEAN CORPUSCULAR VOLUME (BEAKER) (test code = 92.7 fL 82 .0-99.0 753) MEAN CORPUSCULAR HEMOGLOBIN (BEAKER) (test code 30.1 pg 27.0-33.0 = 751) MEAN CORPUSCULAR HEMOGLOBIN CONC (BEAKER) (test 32.5 GM/DL 32.0-36.0 code = 752) RED CELL DISTRIBUTION WIDTH (BEAKER) (test code 24.1 % 12.0-15.0 = 412) PLATELET COUNT (BEAKER) (test code = 756) 251 K/CU MM 150-43 0 MEAN PLATELET VOLUME (BEAKER) (test code = 754) 10.3 fL 6.0-11.5 NUCLEATED RED BLOOD CELLS (BEAKER) (test code = 1 /100 WBC 0-0 413) (MANUAL DIFFERENTIAL)2019-07-14 07:24:00 Test Item Value Reference Range Comments NEUTROPHILS - REL (DIFF) (BEAKER) (test code = 37 % 1359) LYMPHOCYTES - REL (DIFF) (BEAKER) (test code = 38 % 1360) MONOCYTES - REL (DIFF) (BEAKER) (test code = 23 % 1361) EOSINOPHILS - REL (DIFF) (BEAKER) (test code = 1 % 1362) BASOPHILS - REL (DIFF) (BEAKER) (test code = 1 % 1363) NEUTROPHILS - ABS (DIFF) (BEAKER) (test code = 5.77 K/ L 1 .80-8.00 1365) LYMPHOCYTES - ABS (DIFF) (BEAKER) (test code = 5.93 K/ L 1 .48-4.50 1366) MONOCYTES - ABS (DIFF) (BEAKER) (test code = 3.59 K/ L 0.0 0-1.30 1367) EOSINOPHILS - ABS (DIFF) (BEAKER) (test code = 0.16 K/ L 0 .00-0.50 1368) BASOPHILS - ABS (DIFF) (BEAKER) (test code = 0.16 K/ L 0.0 0-0.20 1369) TOTAL COUNTED (BEAKER) (test code = 1351) 100 MANUAL NRBC PER 100 CELLS (BEAKER) (test code = 2 /100 WBC 0-0 1353) WBC MORPHOLOGY (BEAKER) (test code = 487) Normal PLT MORPHOLOGY (BEAKER) (test code = 486) Normal ANISOCYTOSIS (BEAKER) (test code = 961) 2+ moderate HYPOCHROMIA (BEAKER) (test code = 963) 1+ few MICROCYTES (BEAKER) (test code = 965) 1+ few SICKLE CELLS (BEAKER) (test code = 767) 1+ few TARGET CELLS (BEAKER) (test code = 480) 1+ few BASIC METABOLIC [id number] 06:38:00 Test Item Value Reference Range Comments SODIUM (BEAKER) (test 138 meq/L 135-148 code = 381) POTASSIUM (BEAKER) (test 5.1 meq/L 3.6-5.5 Specime n slightly code = 379) hemolyzed CHLORIDE (BEAKER) (test 104 meq/L 98-106 code = 382) CO2 (BEAKER) (test code = 26 meq/L 20-29 355) BLOOD UREA NITROGEN 16 mg/dL 10-26 (BEAKER) (test code = 354) CREATININE (BEAKER) (test 0.60 mg/dL 0.50-1.20 Specim en slightly code = 358) hemolyzed GLUCOSE RANDOM (BEAKER) 106 mg/dL 70-110 (test code = 652) CALCIUM (BEAKER) (test 10.1 mg/dL 8.5-10.5 code = 697) EGFR (BEAKER) (test code 134 mL/min/1.73 sq m ES TIMATED GFR IS NOT = 1092) ACCURATE CREA TININE CLEARANCE IN PRE DICTING GLOMERULAR FILTR ATION RATE. ESTIMATED GFR IS NOT APPLICABLE F OR DIALYSIS PATIENT S. BLOOD [id number] 01:01:00 Test Item Value Reference Range Comments CULTURE (BEAKER) (test code = 1095) No growth in 5 days IMMATURE RETICULOCYTE [id number] 11:40:00 Test Item Value Reference Range Comments IMMATURE RETIC FRACTION (BEAKER) (test code = 1447) 26.500 % 3.000-15.900 . RETICULOCYTE COUNT PCT (BEAKER) (test code = 575) 10.4 % 0.5-1.7 CBC W/PLT COUNT & AUTO [id number] 06:04:00 Test Item Value Reference Range Comments WHITE BLOOD CELL COUNT (BEAKER) (test code = 14.3 K/ L 4.0 -10.0 775) RED BLOOD CELL COUNT (BEAKER) (test code = 761) 2.48 M/ L 4.00-5.00 HEMOGLOBIN (BEAKER) (test code = 410) 7.5 GM/DL 12.0-15.5 HEMATOCRIT (BEAKER) (test code = 411) 23.4 % 36.0-46.0 MEAN CORPUSCULAR VOLUME (BEAKER) (test code = 94.4 fL 82 .0-99.0 753) MEAN CORPUSCULAR HEMOGLOBIN (BEAKER) (test code 30.2 pg 27.0-33.0 = 751) MEAN CORPUSCULAR HEMOGLOBIN CONC (BEAKER) (test 32.1 GM/DL 32.0-36.0 code = 752) RED CELL DISTRIBUTION WIDTH (BEAKER) (test code 24.6 % 12.0-15.0 = 412) PLATELET COUNT (BEAKER) (test code = 756) 213 K/CU MM 150-43 0 MEAN PLATELET VOLUME (BEAKER) (test code = 754) 10.6 fL 6.0-11.5 NUCLEATED RED BLOOD CELLS (BEAKER) (test code = 1 /100 WBC 0-0 413) NEUTROPHILS RELATIVE PERCENT (BEAKER) (test code 41 % = 429) LYMPHOCYTES RELATIVE PERCENT (BEAKER) (test code 33 % = 430) MONOCYTES RELATIVE PERCENT (BEAKER) (test code = 23 % 431) EOSINOPHILS RELATIVE PERCENT (BEAKER) (test code 2 % = 432) BASOPHILS RELATIVE PERCENT (BEAKER) (test code = 0 % 437) NEUTROPHILS ABSOLUTE COUNT (BEAKER) (test code = 5.84 K/ L 1.80-8.00 670) LYMPHOCYTES ABSOLUTE COUNT (BEAKER) (test code = 4.75 K/ L 1.48-4.50 414) MONOCYTES ABSOLUTE COUNT (BEAKER) (test code = 3.32 K/ L 0 .00-1.30 415) EOSINOPHILS ABSOLUTE COUNT (BEAKER) (test code = 0.24 K/ L 0.00-0.50 416) BASOPHILS ABSOLUTE COUNT (BEAKER) (test code = 0.05 K/ L 0 .00-0.20 417) IMMATURE GRANULOCYTES-RELATIVE PERCENT (BEAKER) 0 % 0-0 (test code = 2801) (MANUAL DIFFERENTIAL)[id number] 06:04:00 Test Item Value Reference Range Comments NEUTROPHILS - REL (DIFF) (BEAKER) (test code = 49 % 1359) LYMPHOCYTES - REL (DIFF) (BEAKER) (test code = 30 % 1360) MONOCYTES - REL (DIFF) (BEAKER) (test code = 18 % 1361) EOSINOPHILS - REL (DIFF) (BEAKER) (test code = 3 % 1362) NEUTROPHILS - ABS (DIFF) (BEAKER) (test code = 7.01 K/ L 1 .80-8.00 1365) LYMPHOCYTES - ABS (DIFF) (BEAKER) (test code = 4.29 K/ L 1 .48-4.50 1366) MONOCYTES - ABS (DIFF) (BEAKER) (test code = 2.57 K/ L 0.0 0-1.30 1367) EOSINOPHILS - ABS (DIFF) (BEAKER) (test code = 0.43 K/ L 0 .00-0.50 1368) TOTAL COUNTED (BEAKER) (test code = 1351) 100 MANUAL NRBC PER 100 CELLS (BEAKER) (test code = 4 /100 WBC 0-0 1353) WBC MORPHOLOGY (BEAKER) (test code = 487) Normal LARGE PLT(BEAKER) (test code = 2156) Present ANISOCYTOSIS (BEAKER) (test code = 961) 2+ moderate HYPOCHROMIA (BEAKER) (test code = 963) 1+ few SICKLE CELLS (BEAKER) (test code = 767) 1+ few TARGET CELLS (BEAKER) (test code = 480) 1+ few BASIC METABOLIC [id number] 05:32:00 Test Item Value Reference Range Comments SODIUM (BEAKER) (test 139 meq/L 135-148 code = 381) POTASSIUM (BEAKER) (test 4.5 meq/L 3.6-5.5 code = 379) CHLORIDE (BEAKER) (test 106 meq/L 98-106 code = 382) CO2 (BEAKER) (test code = 26 meq/L 20-29 355) BLOOD UREA NITROGEN 14 mg/dL 10-26 (BEAKER) (test code = 354) CREATININE (BEAKER) (test 0.67 mg/dL 0.50-1.20 code = 358) GLUCOSE RANDOM (BEAKER) 95 mg/dL 70-110 (test code = 652) CALCIUM (BEAKER) (test 9.9 mg/dL 8.5-10.5 code = 697) EGFR (BEAKER) (test code 118 mL/min/1.73 sq m ES TIMATED GFR IS NOT = 1092) ACCURATE CREA TININE CLEARANCE IN PRE DICTING GLOMERULAR FILTR ATION RATE. ESTIMATED GFR IS NOT APPLICABLE F OR DIALYSIS PATIENT S. CBC W/PLT COUNT & AUTO [id number] 07:01:00 Test Item Value Reference Range Comments WHITE BLOOD CELL COUNT (BEAKER) (test code = 17.6 K/ L 4.0 -10.0 775) RED BLOOD CELL COUNT (BEAKER) (test code = 761) 2.56 M/ L 4.00-5.00 HEMOGLOBIN (BEAKER) (test code = 410) 7.7 GM/DL 12.0-15.5 HEMATOCRIT (BEAKER) (test code = 411) 24.0 % 36.0-46.0 MEAN CORPUSCULAR VOLUME (BEAKER) (test code = 93.8 fL 82 .0-99.0 753) MEAN CORPUSCULAR HEMOGLOBIN (BEAKER) (test code 30.1 pg 27.0-33.0 = 751) MEAN CORPUSCULAR HEMOGLOBIN CONC (BEAKER) (test 32.1 GM/DL 32.0-36.0 code = 752) RED CELL DISTRIBUTION WIDTH (BEAKER) (test code 25.3 % 12.0-15.0 = 412) PLATELET COUNT (BEAKER) (test code = 756) 232 K/CU MM 150-43 0 MEAN PLATELET VOLUME (BEAKER) (test code = 754) 9.9 fL 6.0-11.5 NUCLEATED RED BLOOD CELLS (BEAKER) (test code = 1 /100 WBC 0-0 413) NEUTROPHILS RELATIVE PERCENT (BEAKER) (test code 51 % = 429) LYMPHOCYTES RELATIVE PERCENT (BEAKER) (test code 24 % = 430) MONOCYTES RELATIVE PERCENT (BEAKER) (test code = 23 % 431) EOSINOPHILS RELATIVE PERCENT (BEAKER) (test code 1 % = 432) BASOPHILS RELATIVE PERCENT (BEAKER) (test code = 0 % 437) NEUTROPHILS ABSOLUTE COUNT (BEAKER) (test code = 8.91 K/ L 1.80-8.00 670) LYMPHOCYTES ABSOLUTE COUNT (BEAKER) (test code = 4.24 K/ L 1.48-4.50 414) MONOCYTES ABSOLUTE COUNT (BEAKER) (test code = 4.10 K/ L 0 .00-1.30 415) EOSINOPHILS ABSOLUTE COUNT (BEAKER) (test code = 0.21 K/ L 0.00-0.50 416) BASOPHILS ABSOLUTE COUNT (BEAKER) (test code = 0.07 K/ L 0 .00-0.20 417) IMMATURE GRANULOCYTES-RELATIVE PERCENT (BEAKER) 0 % 0-0 (test code = 2801) (MANUAL DIFFERENTIAL)2019-07-12 07:01:00 Test Item Value Reference Range Comments NEUTROPHILS - REL (DIFF) (BEAKER) (test code = 51 % 1359) LYMPHOCYTES - REL (DIFF) (BEAKER) (test code = 23 % 1360) MONOCYTES - REL (DIFF) (BEAKER) (test code = 22 % 1361) EOSINOPHILS - REL (DIFF) (BEAKER) (test code = 2 % 1362) ATYPICAL LYMPHOCYTE - REL (DIFF) (BEAKER) (test 2 % 0-0 code = 260) NEUTROPHILS - ABS (DIFF) (BEAKER) (test code = 8.98 K/ L 1 .80-8.00 1365) LYMPHOCYTES - ABS (DIFF) (BEAKER) (test code = 4.05 K/ L 1 .48-4.50 1366) MONOCYTES - ABS (DIFF) (BEAKER) (test code = 3.87 K/ L 0.0 0-1.30 1367) EOSINOPHILS - ABS (DIFF) (BEAKER) (test code = 0.35 K/ L 0 .00-0.50 1368) ATYPICAL LYMPHOCYTES - ABS (DIFF) (BEAKER) (test 0.35 K/ L 0.00-0.00 code = 263) TOTAL COUNTED (BEAKER) (test code = 1351) 100 MANUAL NRBC PER 100 CELLS (BEAKER) (test code = 2 /100 WBC 0-0 1353) WBC MORPHOLOGY (BEAKER) (test code = 487) Normal PLT MORPHOLOGY (BEAKER) (test code = 486) Normal ANISOCYTOSIS (BEAKER) (test code = 961) 2+ moderate SICKLE CELLS (BEAKER) (test code = 767) 1+ few STOMATOCYTES (BEAKER) (test code = 479) 1+ few TARGET CELLS (BEAKER) (test code = 480) 1+ few CBC W/PLT COUNT & AUTO [id number] 05:35:00 Test Item Value Reference Range Comments WHITE BLOOD CELL COUNT (BEAKER) (test code = 20.0 K/ L 4.0 -10.0 775) RED BLOOD CELL COUNT (BEAKER) (test code = 761) 2.16 M/ L 4.00-5.00 HEMOGLOBIN (BEAKER) (test code = 410) 6.9 GM/DL 12.0-15.5 HEMATOCRIT (BEAKER) (test code = 411) 21.0 % 36.0-46.0 MEAN CORPUSCULAR VOLUME (BEAKER) (test code = 97.2 fL 82 .0-99.0 753) MEAN CORPUSCULAR HEMOGLOBIN (BEAKER) (test code 31.9 pg 27.0-33.0 = 751) MEAN CORPUSCULAR HEMOGLOBIN CONC (BEAKER) (test 32.9 GM/DL 32.0-36.0 code = 752) RED CELL DISTRIBUTION WIDTH (BEAKER) (test code 24.3 % 12.0-15.0 = 412) PLATELET COUNT (BEAKER) (test code = 756) 240 K/CU MM 150-43 0 MEAN PLATELET VOLUME (BEAKER) (test code = 754) 10.2 fL 6.0-11.5 NUCLEATED RED BLOOD CELLS (BEAKER) (test code = 1 /100 WBC 0-0 413) NEUTROPHILS RELATIVE PERCENT (BEAKER) (test code 46 % = 429) LYMPHOCYTES RELATIVE PERCENT (BEAKER) (test code 32 % = 430) MONOCYTES RELATIVE PERCENT (BEAKER) (test code = 20 % 431) EOSINOPHILS RELATIVE PERCENT (BEAKER) (test code 1 % = 432) BASOPHILS RELATIVE PERCENT (BEAKER) (test code = 0 % 437) NEUTROPHILS ABSOLUTE COUNT (BEAKER) (test code = 9.27 K/ L 1.80-8.00 670) LYMPHOCYTES ABSOLUTE COUNT (BEAKER) (test code = 6.45 K/ L 1.48-4.50 414) MONOCYTES ABSOLUTE COUNT (BEAKER) (test code = 3.99 K/ L 0 .00-1.30 415) EOSINOPHILS ABSOLUTE COUNT (BEAKER) (test code = 0.13 K/ L 0.00-0.50 416) BASOPHILS ABSOLUTE COUNT (BEAKER) (test code = 0.04 K/ L 0 .00-0.20 417) IMMATURE GRANULOCYTES-RELATIVE PERCENT (BEAKER) 0 % 0-0 (test code = 2801) (MANUAL DIFFERENTIAL)2019-07-11 05:35:00 Test Item Value Reference Range Comments NEUTROPHILS - REL (DIFF) (BEAKER) (test code = 50 % 1359) LYMPHOCYTES - REL (DIFF) (BEAKER) (test code = 40 % 1360) MONOCYTES - REL (DIFF) (BEAKER) (test code = 4 % 1361) MYELOCYTES-REL (DIFF) (BEAKER) (test code = 1594) 2 % 0-0 ATYPICAL LYMPHOCYTE - REL (DIFF) (BEAKER) (test 4 % 0-0 code = 260) NEUTROPHILS - ABS (DIFF) (BEAKER) (test code = 10.00 K/ L 1 .80-8.00 1365) LYMPHOCYTES - ABS (DIFF) (BEAKER) (test code = 8.00 K/ L 1 .48-4.50 1366) MONOCYTES - ABS (DIFF) (BEAKER) (test code = 0.80 K/ L 0.0 0-1.30 1367) ATYPICAL LYMPHOCYTES - ABS (DIFF) (BEAKER) (test 0.80 K/ L 0.00-0.00 code = 263) MYELOCYTES-ABS (DIFF) (BEAKER) (test code = 1593) 0.40 K/ L 0.00-0.00 TOTAL COUNTED (BEAKER) (test code = 1351) 100 MANUAL NRBC PER 100 CELLS (BEAKER) (test code = 1 /100 WBC 0-0 1353) WBC MORPHOLOGY (BEAKER) (test code = 487) Normal LARGE PLT(BEAKER) (test code = 2156) Present ANISOCYTOSIS (BEAKER) (test code = 961) 1+ few SICKLE CELLS (BEAKER) (test code = 767) 1+ few TARGET CELLS (BEAKER) (test code = 480) 1+ few BASIC METABOLIC [id number] 04:57:00 Test Item Value Reference Range Comments SODIUM (BEAKER) (test 139 meq/L 135-148 code = 381) POTASSIUM (BEAKER) (test 4.4 meq/L 3.6-5.5 code = 379) CHLORIDE (BEAKER) (test 111 meq/L 98-106 code = 382) CO2 (BEAKER) (test code = 21 meq/L 20-29 355) BLOOD UREA NITROGEN 13 mg/dL 10-26 (BEAKER) (test code = 354) CREATININE (BEAKER) (test 0.66 mg/dL 0.50-1.20 code = 358) GLUCOSE RANDOM (BEAKER) 101 mg/dL 70-110 (test code = 652) CALCIUM (BEAKER) (test 9.3 mg/dL 8.5-10.5 code = 697) EGFR (BEAKER) (test code 120 mL/min/1.73 sq m ES TIMATED GFR IS NOT = 1092) ACCURATE CREA TININE CLEARANCE IN PRE DICTING GLOMERULAR FILTR ATION RATE. ESTIMATED GFR IS NOT APPLICABLE F OR DIALYSIS PATIENT S. BASIC METABOLIC [id number] 08:58:00 Test Item Value Reference Range Comments SODIUM (BEAKER) (test 138 meq/L 135-148 code = 381) POTASSIUM (BEAKER) (test 4.4 meq/L 3.6-5.5 code = 379) CHLORIDE (BEAKER) (test 108 meq/L 98-106 code = 382) CO2 (BEAKER) (test code = 22 meq/L 20-29 355) BLOOD UREA NITROGEN 14 mg/dL 10-26 (BEAKER) (test code = 354) CREATININE (BEAKER) (test 0.70 mg/dL 0.50-1.20 code = 358) GLUCOSE RANDOM (BEAKER) 108 mg/dL 70-110 (test code = 652) CALCIUM (BEAKER) (test 9.4 mg/dL 8.5-10.5 code = 697) EGFR (BEAKER) (test code 112 mL/min/1.73 sq m ES TIMATED GFR IS NOT = 1092) ACCURATE CREA TININE CLEARANCE IN PRE DICTING GLOMERULAR FILTR ATION RATE. ESTIMATED GFR IS NOT APPLICABLE F OR DIALYSIS PATIENT S. CBC W/PLT COUNT & AUTO [id number] 07:52:00 Test Item Value Reference Range Comments WHITE BLOOD CELL COUNT (BEAKER) (test code = 20.9 K/ L 4.0 -10.0 775) RED BLOOD CELL COUNT (BEAKER) (test code = 761) 2.21 M/ L 4.00-5.00 HEMOGLOBIN (BEAKER) (test code = 410) 7.1 GM/DL 12.0-15.5 HEMATOCRIT (BEAKER) (test code = 411) 21.3 % 36.0-46.0 MEAN CORPUSCULAR VOLUME (BEAKER) (test code = 96.4 fL 82 .0-99.0 753) MEAN CORPUSCULAR HEMOGLOBIN (BEAKER) (test code 32.1 pg 27.0-33.0 = 751) MEAN CORPUSCULAR HEMOGLOBIN CONC (BEAKER) (test 33.3 GM/DL 32.0-36.0 code = 752) RED CELL DISTRIBUTION WIDTH (BEAKER) (test code 24.4 % 12.0-15.0 = 412) PLATELET COUNT (BEAKER) (test code = 756) 242 K/CU MM 150-43 0 MEAN PLATELET VOLUME (BEAKER) (test code = 754) 9.7 fL 6.0-11.5 NUCLEATED RED BLOOD CELLS (BEAKER) (test code = 2 /100 WBC 0-0 413) (MANUAL DIFFERENTIAL)2019-07-10 07:52:00 Test Item Value Reference Range Comments NEUTROPHILS - REL (DIFF) (BEAKER) (test code = 47 % 1359) LYMPHOCYTES - REL (DIFF) (BEAKER) (test code = 37 % 1360) MONOCYTES - REL (DIFF) (BEAKER) (test code = 1 % 1361) EOSINOPHILS - REL (DIFF) (BEAKER) (test code = 1 % 1362) METAMYELOCYTES-REL (DIFF) (BEAKER) (test code = 9 % 0-0 258) MYELOCYTES-REL (DIFF) (BEAKER) (test code = 5 % 0-0 1594) NEUTROPHILS - ABS (DIFF) (BEAKER) (test code = 9.82 K/ L 1 .80-8.00 1365) LYMPHOCYTES - ABS (DIFF) (BEAKER) (test code = 7.73 K/ L 1 .48-4.50 1366) MONOCYTES - ABS (DIFF) (BEAKER) (test code = 0.21 K/ L 0.0 0-1.30 1367) EOSINOPHILS - ABS (DIFF) (BEAKER) (test code = 0.21 K/ L 0 .00-0.50 1368) METAMYELOCTYES - ABS (DIFF) (BEAKER) (test code 1.88 K/ L 0.00-0.00 = 261) MYELOCYTES-ABS (DIFF) (BEAKER) (test code = 1.05 K/ L 0.00 -0.00 1593) TOTAL COUNTED (BEAKER) (test code = 1351) 100 PLT MORPHOLOGY (BEAKER) (test code = 486) Normal TOXIC GRANULATION (BEAKER) (test code = 771) Present ELLIPTOCYTES (BEAKER) (test code = 962) 1+ few POLYCHROMATOPHILLIC RBCS(BEAKER) (test code = 1+ few 478) SICKLE CELLS (BEAKER) (test code = 767) 2+ moderate TARGET CELLS (BEAKER) (test code = 480) 1+ few TEAR DROP CELLS (BEAKER) (test code = 481) 1+ few CBC W/PLT COUNT & AUTO [id number] 11:40:00 Test Item Value Reference Range Comments WHITE BLOOD CELL COUNT (BEAKER) (test code = 16.3 K/ L 4.0 -10.0 775) RED BLOOD CELL COUNT (BEAKER) (test code = 761) 2.05 M/ L 4.00-5.00 HEMOGLOBIN (BEAKER) (test code = 410) 6.5 GM/DL 12.0-15.5 HEMATOCRIT (BEAKER) (test code = 411) 19.5 % 36.0-46.0 MEAN CORPUSCULAR VOLUME (BEAKER) (test code = 95.1 fL 82 .0-99.0 753) MEAN CORPUSCULAR HEMOGLOBIN (BEAKER) (test code 31.7 pg 27.0-33.0 = 751) MEAN CORPUSCULAR HEMOGLOBIN CONC (BEAKER) (test 33.3 GM/DL 32.0-36.0 code = 752) RED CELL DISTRIBUTION WIDTH (BEAKER) (test code 27.9 % 12.0-15.0 = 412) PLATELET COUNT (BEAKER) (test code = 756) 251 K/CU MM 150-43 0 MEAN PLATELET VOLUME (BEAKER) (test code = 754) 10.3 fL 6.0-11.5 NUCLEATED RED BLOOD CELLS (BEAKER) (test code = 2 /100 WBC 0-0 413) NEUTROPHILS RELATIVE PERCENT (BEAKER) (test code 48 % = 429) LYMPHOCYTES RELATIVE PERCENT (BEAKER) (test code 30 % = 430) MONOCYTES RELATIVE PERCENT (BEAKER) (test code = 19 % 431) EOSINOPHILS RELATIVE PERCENT (BEAKER) (test code 2 % = 432) BASOPHILS RELATIVE PERCENT (BEAKER) (test code = 0 % 437) NEUTROPHILS ABSOLUTE COUNT (BEAKER) (test code = 7.88 K/ L 1.80-8.00 670) LYMPHOCYTES ABSOLUTE COUNT (BEAKER) (test code = 4.86 K/ L 1.48-4.50 414) MONOCYTES ABSOLUTE COUNT (BEAKER) (test code = 3.11 K/ L 0 .00-1.30 415) EOSINOPHILS ABSOLUTE COUNT (BEAKER) (test code = 0.34 K/ L 0.00-0.50 416) BASOPHILS ABSOLUTE COUNT (BEAKER) (test code = 0.05 K/ L 0 .00-0.20 417) IMMATURE GRANULOCYTES-RELATIVE PERCENT (BEAKER) 0 % 0-0 (test code = 2801) [id number] 05:32:00 Test Item Value Reference Range Comments MAGNESIUM (BEAKER) (test code = 627) 1.7 mg/dL 1.5-3.0 BASIC METABOLIC [id number] 05:30:00 Test Item Value Reference Range Comments SODIUM (BEAKER) (test 137 meq/L 135-148 code = 381) POTASSIUM (BEAKER) (test 5.0 meq/L 3.6-5.5 code = 379) CHLORIDE (BEAKER) (test 105 meq/L 98-106 code = 382) CO2 (BEAKER) (test code = 25 meq/L 20-29 355) BLOOD UREA NITROGEN 15 mg/dL 10-26 (BEAKER) (test code = 354) CREATININE (BEAKER) (test 0.67 mg/dL 0.50-1.20 code = 358) GLUCOSE RANDOM (BEAKER) 96 mg/dL 70-110 (test code = 652) CALCIUM (BEAKER) (test 9.3 mg/dL 8.5-10.5 code = 697) EGFR (BEAKER) (test code 118 mL/min/1.73 sq m ES TIMATED GFR IS NOT = 1092) ACCURATE CREA TININE CLEARANCE IN PRE DICTING GLOMERULAR FILTR ATION RATE. ESTIMATED GFR IS NOT APPLICABLE F OR DIALYSIS PATIENT S. [id number] 05:25:00 Test Item Value Reference Range Comments POTASSIUM (BEAKER) (test code = 379) 5.0 meq/L 3.6-5.5 RAD, CHEST, 1 VIEW, NON [id number] 20:10:00Reason for exam:->chest painIs the patient ?->NoShould this be performed at the bedside?->Yes FINAL REPORT Chest, 1 view. History: Chest pain Comparison: Plain radiographthe chest dated 01/07/2019.. IMPRESSION:Left chest wall Port-A-Cath with tip overlying the cavoatrialjunction. Enlarged cardiac mediastinal silhouette is likely exaggerated by technique. No lobar consol idation. Discoid atelectasis in the left base. No pleural effusion or pneumothorax. Osseous structures are grossly unremarkable. Signed: Chalo Giordano MDReport Verified Date/Time: 07/08/2019 20:10:40 URINALYSIS W/ [id number] 19:36:00 Test Item Value Reference Range Comments COLOR (BEAKER) (test code = 470) Yellow CLARITY (BEAKER) (test code = 469) Clear SPECIFIC GRAVITY UA (BEAKER) (test code = 1.010 1.001- 1.035 468) PH UA (BEAKER) (test code = 467) 8.5 5.0-8.0 PROTEIN UA (BEAKER) (test code = 464) Negative Negative GLUCOSE UA (BEAKER) (test code = 365) Negative Negative KETONES UA (BEAKER) (test code = 371) Negative Negative BILIRUBIN UA (BEAKER) (test code = 462) Negative Negative BLOOD UA (BEAKER) (test code = 461) Trace Negative NITRITE UA (BEAKER) (test code = 465) Negative Negative LEUKOCYTE ESTERASE UA (BEAKER) (test code = Negative Nega tive 466) UROBILINOGEN UA (BEAKER) (test code = 463) 2.0 mg/dL 0.2-1 .0 BACTERIA (BEAKER) (test code = 517) None Seen AMORPHOUS CRYSTALS (BEAKER) (test code = Moderate 1584) RBC UA-MANUAL (BEAKER) (test code = 1659) None Seen /HPF WBC UA-MANUAL (BEAKER) (test code = 1661) None Seen /HPF SQUAMOUS EPITHELIAL MANUAL (BEAKER) (test <5 /HPF code = 1663) SOURCE(BEAKER) (test code = 2795) SCREEN, [id number] 19:25:00 Test Item Value Reference Range Comments TEST URINE (BEAKER) (test code = 583) Negative TROPONIN [id number] 19:16:00 Test Item Value Reference Range Comments TROPONIN I (BEAKER) (test code = 397) < ng/mL 0.00-0.15 Troponin I (TnI) levels must be interpreted [...] and persistent tachyarrhythmia.CBC W/PLT COUNT & AUTO DIFFERENTIAL 2019-07-08 19:12:00 Test Item Value Reference Range Comments WHITE BLOOD CELL COUNT (BEAKER) (test code = 20.2 K/ L 4.0 -10.0 775) RED BLOOD CELL COUNT (BEAKER) (test code = 761) 2.17 M/ L 4.00-5.00 HEMOGLOBIN (BEAKER) (test code = 410) 6.9 GM/DL 12.0-15.5 HEMATOCRIT (BEAKER) (test code = 411) 21.0 % 36.0-46.0 MEAN CORPUSCULAR VOLUME (BEAKER) (test code = 96.8 fL 82 .0-99.0 753) MEAN CORPUSCULAR HEMOGLOBIN (BEAKER) (test code 31.8 pg 27.0-33.0 = 751) MEAN CORPUSCULAR HEMOGLOBIN CONC (BEAKER) (test 32.9 GM/DL 32.0-36.0 code = 752) RED CELL DISTRIBUTION WIDTH (BEAKER) (test code 28.5 % 12.0-15.0 = 412) PLATELET COUNT (BEAKER) (test code = 756) 245 K/CU MM 150-43 0 MEAN PLATELET VOLUME (BEAKER) (test code = 754) 10.2 fL 6.0-11.5 NUCLEATED RED BLOOD CELLS (BEAKER) (test code = 3 /100 WBC 0-0 413) NEUTROPHILS RELATIVE PERCENT (BEAKER) (test code 48 % = 429) LYMPHOCYTES RELATIVE PERCENT (BEAKER) (test code 31 % = 430) MONOCYTES RELATIVE PERCENT (BEAKER) (test code = 19 % 431) EOSINOPHILS RELATIVE PERCENT (BEAKER) (test code 2 % = 432) BASOPHILS RELATIVE PERCENT (BEAKER) (test code = 0 % 437) NEUTROPHILS ABSOLUTE COUNT (BEAKER) (test code = 9.66 K/ L 1.80-8.00 670) LYMPHOCYTES ABSOLUTE COUNT (BEAKER) (test code = 6.18 K/ L 1.48-4.50 414) MONOCYTES ABSOLUTE COUNT (BEAKER) (test code = 3.80 K/ L 0 .00-1.30 415) EOSINOPHILS ABSOLUTE COUNT (BEAKER) (test code = 0.35 K/ L 0.00-0.50 416) BASOPHILS ABSOLUTE COUNT (BEAKER) (test code = 0.08 K/ L 0 .00-0.20 417) IMMATURE GRANULOCYTES-RELATIVE PERCENT (BEAKER) 1 % 0-0 (test code = 2801) (MANUAL DIFFERENTIAL)2019-07-08 19:12:00 Test Item Value Reference Range Comments TOTAL COUNTED (BEAKER) (test code = 1351) WBC MORPHOLOGY (BEAKER) (test code = 487) Normal PLT MORPHOLOGY (BEAKER) (test code = 486) Normal ANISOCYTOSIS (BEAKER) (test code = 961) 3+ many POLYCHROMATOPHILLIC RBCS(BEAKER) (test code = 1+ few 478) SICKLE CELLS (BEAKER) (test code = 767) 2+ moderate SPHEROCYTES (BEAKER) (test code = 768) 1+ few TARGET CELLS (BEAKER) (test code = 480) 2+ moderate BASIC METABOLIC [id number] 19:07:00 Test Item Value Reference Range Comments SODIUM (BEAKER) (test 138 meq/L 135-148 code = 381) POTASSIUM (BEAKER) (test 6.4 meq/L 3.6-5.5 code = 379) CHLORIDE (BEAKER) (test 106 meq/L 98-106 code = 382) CO2 (BEAKER) (test code = 23 meq/L 20-29 355) BLOOD UREA NITROGEN 14 mg/dL 10-26 (BEAKER) (test code = 354) CREATININE (BEAKER) (test 0.74 mg/dL 0.50-1.20 code = 358) GLUCOSE RANDOM (BEAKER) 87 mg/dL 70-110 (test code = 652) CALCIUM (BEAKER) (test 9.7 mg/dL 8.5-10.5 code = 697) EGFR (BEAKER) (test code 105 mL/min/1.73 sq m ES TIMATED GFR IS NOT = 1092) ACCURATE CREA TININE CLEARANCE IN PRE DICTING GLOMERULAR FILTR ATION RATE. ESTIMATED GFR IS NOT APPLICABLE F OR DIALYSIS PATIENT S. Specimen slightly [id number] 19:07:00 Test Item Value Reference Range Comments MAGNESIUM (BEAKER) (test code = 627) 1.9 mg/dL 1.5-3.0 RETICULOCYTE [id number] 19:03:00 Test Item Value Reference Range Comments RETICULOCYTE COUNT PCT (BEAKER) (test code = 575) 23.6 % 0.4-2.9 CT, CHEST WITH IV CONTRAST- PE TEST [id number] 09:54:00FINAL REPORT INDICATION: Acute chest pain. COMPARISON:Chest radiograph January [...] lymphadenopathy is demonstrated. Thyroid gland, esophagus are unremar kable. Liver is enlarged and with lobulated and slightly irregular contour. Osseous structures unremarkable. IMPRESSION: No pulmonary embolism. Cardiomegaly. Hepatomegaly with irregular contour suggesting cirrhosis. Signed: Miguel Carrera MDReport Verified Date/Time: 01/08/2019 09:54:01 Reading Loca tion: [facility] B1 C013Y CT Body Reading Room CREATINE KINASE (CK)2019-01-08 02:25:00 Test Item Value Reference Range Comments CREATINE KINASE TOTAL (BEAKER) (test code = 380) 7 U/L 29-200 TROPONIN [id number] 01:38:00 Test Item Value Reference Range Comments TROPONIN I (BEAKER) (test code = 397) < ng/mL 0.00-0.03 Troponin I (TnI) levels [...] acidosis, acute neurological disease, and persistent tachyarrhythmia.TROPONIN [id number] 19:01:00 Test Item Value Reference Range Comments TROPONIN I (BEAKER) (test code = 397) < ng/mL 0.00-0.03 Troponin I (TnI) levels [...] Range Comments CREATINE KINASE TOTAL (BEAKER) (test code = 380) 11 U/L 29-200 RAD, CHEST, 1 VIEW, NON [id number] 08:40:00Reason for exam:->Shortness of BreathShould this be [...] osteopenic for patient's stated age. Signed: Mckenzie eY MDReport Verified Date/Time: 01/07/201908:40:21 Reading Location: [facility] Radiology Reading Room CBC W/PLT COUNT & AUTO [id number] 12:52:00 Test Item Value Reference Range Comments WHITE BLOOD CELL COUNT (BEAKER) (test code = 20.2 K/ L 3.5 -10.5 775) RED BLOOD CELL COUNT (BEAKER) (test code = 761) 2.32 M/ L 3.93-5.22 HEMOGLOBIN (BEAKER) (test code = 410) 7.9 GM/DL 11.2-15.7 HEMATOCRIT (BEAKER) (test code = 411) 24.5 % 34.1-44.9 MEAN CORPUSCULAR VOLUME (BEAKER) (test code = 105.6 fL 79 .4-94.8 753) MEAN CORPUSCULAR HEMOGLOBIN (BEAKER) (test code 34.1 pg 25.6-32.2 = 751) MEAN CORPUSCULAR HEMOGLOBIN CONC (BEAKER) (test 32.2 GM/DL 32.2-35.5 code = 752) RED CELL DISTRIBUTION WIDTH (BEAKER) (test code 22.3 % 11.7-14.4 = 412) PLATELET COUNT (BEAKER) (test code = 756) 219 K/CU MM 150-45 0 MEAN PLATELET VOLUME (BEAKER) (test code = 754) 11.6 fL 9.4-12.3 NUCLEATED RED BLOOD CELLS (BEAKER) (test code = 7 /100 WBC 0-0 413) (CELLAVISION MANUAL DIFF)2019-01-06 12:52:00 Test Item Value Reference Range Comments NEUTROPHILS - REL (CELLAVISION)(BEAKER) (test 57 % code = 2816) LYMPHOCYTES - REL (CELLAVISION)(BEAKER) (test 19 % code = 2817) MONOCYTES - REL (CELLAVISION)(BEAKER) (test code 18 % = 2818) EOSINOPHILS - REL (CELLAVISION)(BEAKER) (test 6 % code = 2819) NEUTROPHILS - ABS (CELLAVISION)(BEAKER) (test 11.51 K/ul 1. 56-6.13 code = 2830) LYMPHOCYTES - ABS (CELLAVISION)(BEAKER) (test 3.84 K/ul 1. 18-3.74 code = 2831) MONOCYTES - ABS (CELLAVISION)(BEAKER) (test code 3.64 K/uL 0.24-0.36 = 2832) EOSINOPHILS - ABS (CELLAVISION)(BEAKER) (test 1.21 K/uL 0. 04-0.36 code = 2834) TOTAL COUNTED (BEAKER) (test code = 1351) 100 MANUAL NRBC PER 100 CELLS (BEAKER) (test code = 9 /100 WBC 0-0 1353) SMUDGE CELLS (BEAKER) (test code = 1371) Present GIANT PLATELETS (BEAKER) (test code = 313) Present POLYCHROMATOPHILLIC RBCS(BEAKER) (test code = 2+ moderate 478) ANISOCYTOSIS (BEAKER) (test code = 961) 2+ moderate MACROCYTES (BEAKER) (test code = 964) 2+ moderate SICKLE CELLS (BEAKER) (test code = 767) 1+ few ARTIFACT (CELLAVISION)(BEAKER) (test code = Present 3432) PLATELET CONCENTRATION (CELLAVISION)(BEAKER) Adequate (test code = 3438) Received comment: User comments: Slide comments:BASIC METABOLIC [id number] 07:32:00 Test Item Value Reference Range Comments SODIUM (BEAKER) (test 140 meq/L 136-145 code = 381) POTASSIUM (BEAKER) (test 4.2 meq/L 3.5-5.1 code = 379) CHLORIDE (BEAKER) (test 96 meq/L 98-107 code = 382) CO2 (BEAKER) (test code = 34 meq/L 22-29 355) BLOOD UREA NITROGEN 10 mg/dL 7-21 (BEAKER) (test code = 354) CREATININE (BEAKER) (test 0.58 mg/dL 0.57-1.25 code = 358) GLUCOSE RANDOM (BEAKER) 95 mg/dL 70-105 (test code = 652) CALCIUM (BEAKER) (test 9.6 mg/dL 8.4-10.2 code = 697) EGFR (BEAKER) (test code 140 mL/min/1.73 sq m ES TIMATED GFR IS NOT = 1092) ACCURATE CREA TININE CLEARANCE IN PRE DICTING GLOMERULAR FILTR ATION RATE. ESTIMATED GFR IS NOT APPLICABLE F OR DIALYSIS PATIENT S. Specimen slightly ictericCBC W/PLT COUNT & AUTO [id number] 06:02:00 Test Item Value Reference Range Comments WHITE BLOOD CELL COUNT (BEAKER) (test code = 20.2 K/ L 3.5 -10.5 775) RED BLOOD CELL COUNT (BEAKER) (test code = 761) 2.24 M/ L 3.93-5.22 HEMOGLOBIN (BEAKER) (test code = 410) 7.5 GM/DL 11.2-15.7 HEMATOCRIT (BEAKER) (test code = 411) 23.3 % 34.1-44.9 MEAN CORPUSCULAR VOLUME (BEAKER) (test code = 104.0 fL 79 .4-94.8 753) MEAN CORPUSCULAR HEMOGLOBIN (BEAKER) (test code 33.5 pg 25.6-32.2 = 751) MEAN CORPUSCULAR HEMOGLOBIN CONC (BEAKER) (test 32.2 GM/DL 32.2-35.5 code = 752) RED CELL DISTRIBUTION WIDTH (BEAKER) (test code 23.4 % 11.7-14.4 = 412) PLATELET COUNT (BEAKER) (test code = 756) 215 K/CU MM 150-45 0 MEAN PLATELET VOLUME (BEAKER) (test code = 754) 11.2 fL 9.4-12.3 NUCLEATED RED BLOOD CELLS (BEAKER) (test code = 9 /100 WBC 0-0 413) NEUTROPHILS RELATIVE PERCENT (BEAKER) (test code 54 % = 429) LYMPHOCYTES RELATIVE PERCENT (BEAKER) (test code 22 % = 430) MONOCYTES RELATIVE PERCENT (BEAKER) (test code = 18 % 431) EOSINOPHILS RELATIVE PERCENT (BEAKER) (test code 5 % = 432) BASOPHILS RELATIVE PERCENT (BEAKER) (test code = 0 % 437) NEUTROPHILS ABSOLUTE COUNT (BEAKER) (test code = 10.96 K/ L 1.56-6.13 670) LYMPHOCYTES ABSOLUTE COUNT (BEAKER) (test code = 4.39 K/ L 1.18-3.74 414) MONOCYTES ABSOLUTE COUNT (BEAKER) (test code = 3.61 K/ L 0 .24-0.36 415) EOSINOPHILS ABSOLUTE COUNT (BEAKER) (test code = 1.08 K/ L 0.04-0.36 416) BASOPHILS ABSOLUTE COUNT (BEAKER) (test code = 0.07 K/ L 0 .01-0.08 417) IMMATURE GRANULOCYTES-RELATIVE PERCENT (BEAKER) 1 % 0-1 (test code = 2801) BASIC METABOLIC [id number] 06:02:00 Test Item Value Reference Range Comments SODIUM (BEAKER) (test 139 meq/L 136-145 code = 381) POTASSIUM (BEAKER) (test 4.3 meq/L 3.5-5.1 code = 379) CHLORIDE (BEAKER) (test 98 meq/L 98-107 code = 382) CO2 (BEAKER) (test code = 36 meq/L 22-29 355) BLOOD UREA NITROGEN 9 mg/dL 7-21 (BEAKER) (test code = 354) CREATININE (BEAKER) (test 0.56 mg/dL 0.57-1.25 code = 358) GLUCOSE RANDOM (BEAKER) 100 mg/dL 70-105 (test code = 652) CALCIUM (BEAKER) (test 9.5 mg/dL 8.4-10.2 code = 697) EGFR (BEAKER) (test code 146 mL/min/1.73 sq m ES TIMATED GFR IS NOT = 1092) ACCURATE CREA TININE CLEARANCE IN PRE DICTING GLOMERULAR FILTR ATION RATE. ESTIMATED GFR IS NOT APPLICABLE F OR DIALYSIS PATIENT S. Specimen slightly ictericBASIC METABOLIC [id number] 09:02:00 Test Item Value Reference Range Comments SODIUM (BEAKER) (test 141 meq/L 136-145 code = 381) POTASSIUM (BEAKER) (test 4.4 meq/L 3.5-5.1 code = 379) CHLORIDE (BEAKER) (test 101 meq/L 98-107 code = 382) CO2 (BEAKER) (test code = 32 meq/L 22-29 355) BLOOD UREA NITROGEN 9 mg/dL 7-21 (BEAKER) (test code = 354) CREATININE (BEAKER) (test 0.54 mg/dL 0.57-1.25 code = 358) GLUCOSE RANDOM (BEAKER) 102 mg/dL 70-105 (test code = 652) CALCIUM (BEAKER) (test 9.6 mg/dL 8.4-10.2 code = 697) EGFR (BEAKER) (test code 152 mL/min/1.73 sq m ES TIMATED GFR IS NOT = 1092) ACCURATE CREA TININE CLEARANCE IN PRE DICTING GLOMERULAR FILTR ATION RATE. ESTIMATED GFR IS NOT APPLICABLE F OR DIALYSIS PATIENT S. Specimen slightly ictericCBC W/PLT COUNT & AUTO [id number] 07:17:00 Test Item Value Reference Range Comments WHITE BLOOD CELL COUNT (BEAKER) (test code = 19.8 K/ L 3.5 -10.5 775) RED BLOOD CELL COUNT (BEAKER) (test code = 761) 2.35 M/ L 3.93-5.22 HEMOGLOBIN (BEAKER) (test code = 410) 7.7 GM/DL 11.2-15.7 HEMATOCRIT (BEAKER) (test code = 411) 24.3 % 34.1-44.9 MEAN CORPUSCULAR VOLUME (BEAKER) (test code = 103.4 fL 79 .4-94.8 753) MEAN CORPUSCULAR HEMOGLOBIN (BEAKER) (test code 32.8 pg 25.6-32.2 = 751) MEAN CORPUSCULAR HEMOGLOBIN CONC (BEAKER) (test 31.7 GM/DL 32.2-35.5 code = 752) RED CELL DISTRIBUTION WIDTH (BEAKER) (test code 24.4 % 11.7-14.4 = 412) PLATELET COUNT (BEAKER) (test code = 756) 220 K/CU MM 150-45 0 MEAN PLATELET VOLUME (BEAKER) (test code = 754) 10.9 fL 9.4-12.3 NUCLEATED RED BLOOD CELLS (BEAKER) (test code = 14 /100 WBC 0-0 413) (CELLAVISION MANUAL DIFF)2019-01-04 07:17:00 Test Item Value Reference Range Comments NEUTROPHILS - REL (CELLAVISION)(BEAKER) (test 62 % code = 2816) LYMPHOCYTES - REL (CELLAVISION)(BEAKER) (test 25 % code = 2817) MONOCYTES - REL (CELLAVISION)(BEAKER) (test code 8 % = 2818) EOSINOPHILS - REL (CELLAVISION)(BEAKER) (test 3 % code = 2819) BANDS - REL (CELLAVISION)(BEAKER) (test code = 1 % 0 -10 2826) NEUTROPHILS - ABS (CELLAVISION)(BEAKER) (test 12.28 K/ul 1. 56-6.13 code = 2830) LYMPHOCYTES - ABS (CELLAVISION)(BEAKER) (test 4.95 K/ul 1. 18-3.74 code = 2831) MONOCYTES - ABS (CELLAVISION)(BEAKER) (test code 1.58 K/uL 0.24-0.36 = 2832) EOSINOPHILS - ABS (CELLAVISION)(BEAKER) (test 0.59 K/uL 0. 04-0.36 code = 2834) BANDS - ABS (CELLAVISION)(BEAKER) (test code = 0.20 K/uL 0 .00-0.80 2840) TOTAL COUNTED (BEAKER) (test code = 1351) 100 MANUAL NRBC PER 100 CELLS (BEAKER) (test code = 20 /100 WBC 0-0 1353) RBC MORPHOLOGY (BEAKER) (test code = 762) Normal WBC MORPHOLOGY (BEAKER) (test code = 487) Normal PLT MORPHOLOGY (BEAKER) (test code = 486) Normal GIANT PLATELETS (BEAKER) (test code = 313) Present LARGE PLT(BEAKER) (test code = 2156) Present POLYCHROMATOPHILLIC RBCS(BEAKER) (test code = 2+ moderate 478) HYPOCHROMIA (BEAKER) (test code = 963) 2+ moderate ANISOCYTOSIS (BEAKER) (test code = 961) 2+ moderate MICROCYTES (BEAKER) (test code = 965) 1+ few MACROCYTES (BEAKER) (test code = 964) 2+ moderate POIKILOCYTES (BEAKER) (test code = 966) 3+ many TARGET CELLS (BEAKER) (test code = 480) 2+ moderate SCHISTOCYTES (BEAKER) (test code = 765) 1+ few SICKLE CELLS (BEAKER) (test code = 767) 3+ many ELLIPTOCYTES (BEAKER) (test code = 962) 1+ few OVALOCYTES (BEAKER) (test code = 477) 1+ few BASOPHILIC STIPPLING (BEAKER) (test code = 473) Present ARTIFACT (CELLAVISION)(BEAKER) (test code = Present 3432) PAPPENHEIMER (CELLAVISION)(BEAKER) (test code = 1+ few 3435) PLATELET CONCENTRATION (CELLAVISION)(BEAKER) Adequate (test code = 3438) Received comment: User comments: Slide comments:CBC WITH PLATELET COUNT + MANUAL [id number] 10:36:00 Test Item Value Reference Range Comments WHITE BLOOD CELL COUNT 22.9 K/ L 3.5-10.5 (BEAKER) (test code = 775) RED BLOOD CELL COUNT (BEAKER) 2.28 M/ L 3.93-5.22 (test code = 761) HEMOGLOBIN (BEAKER) (test 7.7 GM/DL 11.2-15.7 code = 410) HEMATOCRIT (BEAKER) (test 23.2 % 34.1-44.9 code = 411) MEAN CORPUSCULAR VOLUME 101.8 fL 79.4-94.8 Discorda nt results compared (BEAKER) (test code = 753) to pr evious result; clinical correlation requ ired. MEAN CORPUSCULAR HEMOGLOBIN 33.8 pg 25.6-32.2 (BEAKER) (test code = 751) MEAN CORPUSCULAR HEMOGLOBIN 33.2 GM/DL 32.2-35.5 CONC (BEAKER) (test code = 752) RED CELL DISTRIBUTION WIDTH 23.3 % 11.7-14.4 (BEAKER) (test code = 412) PLATELET COUNT (BEAKER) (test 251 K/CU MM 150-450 code = 756) MEAN PLATELET VOLUME (BEAKER) 10.7 fL 9.4-12.3 (test code = 754) NUCLEATED RED BLOOD CELLS 52 /100 WBC 0-0 (BEAKER) (test code = 413) (CELLAVISION MANUAL DIFF)2019-01-01 10:36:00 Test Item Value Reference Range Comments NEUTROPHILS - REL (CELLAVISION)(BEAKER) (test 56 % code = 2816) LYMPHOCYTES - REL (CELLAVISION)(BEAKER) (test 30 % code = 2817) MONOCYTES - REL (CELLAVISION)(BEAKER) (test code 10 % = 2818) EOSINOPHILS - REL (CELLAVISION)(BEAKER) (test 3 % code = 2819) ATYPICAL LYMPHOCYTES - REL (CELLAVISION)(BEAKER) 2 % 0-0 (test code = 2829) NEUTROPHILS - ABS (CELLAVISION)(BEAKER) (test 12.82 K/ul 1. 56-6.13 code = 2830) LYMPHOCYTES - ABS (CELLAVISION)(BEAKER) (test 6.87 K/ul 1. 18-3.74 code = 2831) MONOCYTES - ABS (CELLAVISION)(BEAKER) (test code 2.29 K/uL 0.24-0.36 = 2832) EOSINOPHILS - ABS (CELLAVISION)(BEAKER) (test 0.69 K/uL 0. 04-0.36 code = 2834) ATYPICAL LYMPHOCYTES - ABS (CELLAVISION)(BEAKER) 0.46 K/uL 0.00-0.00 (test code = 2858) TOTAL COUNTED (BEAKER) (test code = 1351) 100 MANUAL NRBC PER 100 CELLS (BEAKER) (test code = 61 /100 WBC 0-0 1353) WBC MORPHOLOGY (BEAKER) (test code = 487) Normal PLT MORPHOLOGY (BEAKER) (test code = 486) Normal POLYCHROMATOPHILLIC RBCS(BEAKER) (test code = 3+ many 478) HYPOCHROMIA (BEAKER) (test code = 963) 2+ moderate TARGET CELLS (BEAKER) (test code = 480) 2+ moderate SICKLE CELLS (BEAKER) (test code = 767) 2+ moderate MATTHEWS-JOLLY BODIES (BEAKER) (test code = 475) 1+ few ARTIFACT (CELLAVISION)(BEAKER) (test code = Present 3432) PLATELET CONCENTRATION (CELLAVISION)(BEAKER) Adequate (test code = 3438) Received comment: User comments: Slide comments:BASIC METABOLIC [id number] 08:47:00 Test Item Value Reference Range Comments SODIUM (BEAKER) (test 140 meq/L 136-145 code = 381) POTASSIUM (BEAKER) (test 4.2 meq/L 3.5-5.1 code = 379) CHLORIDE (BEAKER) (test 109 meq/L 98-107 code = 382) CO2 (BEAKER) (test code = 27 meq/L 22-29 355) BLOOD UREA NITROGEN 10 mg/dL 7-21 (BEAKER) (test code = 354) CREATININE (BEAKER) (test 0.65 mg/dL 0.57-1.25 code = 358) GLUCOSE RANDOM (BEAKER) 87 mg/dL 70-105 (test code = 652) CALCIUM (BEAKER) (test 8.9 mg/dL 8.4-10.2 code = 697) EGFR (BEAKER) (test code 123 mL/min/1.73 sq m ES TIMATED GFR IS NOT = 1092) ACCURATE CREA TININE CLEARANCE IN PRE DICTING GLOMERULAR FILTR ATION RATE. ESTIMATED GFR IS NOT APPLICABLE F OR DIALYSIS PATIENT S. Specimen slightly ictericHEMOGLOBIN AND [id number] 12:05:00 Test Item Value Reference Range Comments HEMOGLOBIN (BEAKER) (test code = 410) 5.5 GM/DL 11.2-15.7 HEMATOCRIT (BEAKER) (test code = 411) 17.1 % 34.1-44.9 CBC W/PLT COUNT & AUTO [id number] 09:09:00 Test Item Value Reference Range Comments WHITE BLOOD CELL COUNT (BEAKER) (test code = 32.6 K/ L 3.5 -10.5 775) RED BLOOD CELL COUNT (BEAKER) (test code = 761) 1.71 M/ L 3.93-5.22 HEMOGLOBIN (BEAKER) (test code = 410) 5.9 GM/DL 11.2-15.7 HEMATOCRIT (BEAKER) (test code = 411) 18.5 % 34.1-44.9 MEAN CORPUSCULAR VOLUME (BEAKER) (test code = 108.2 fL 79 .4-94.8 753) MEAN CORPUSCULAR HEMOGLOBIN (BEAKER) (test code 34.5 pg 25.6-32.2 = 751) MEAN CORPUSCULAR HEMOGLOBIN CONC (BEAKER) (test 31.9 GM/DL 32.2-35.5 code = 752) RED CELL DISTRIBUTION WIDTH (BEAKER) (test code 27.3 % 11.7-14.4 = 412) PLATELET COUNT (BEAKER) (test code = 756) 245 K/CU MM 150-45 0 MEAN PLATELET VOLUME (BEAKER) (test code = 754) 11.0 fL 9.4-12.3 NUCLEATED RED BLOOD CELLS (BEAKER) (test code = 18 /100 WBC 0-0 413) (CELLAVISION MANUAL DIFF)2018-12-31 09:09:00 Test Item Value Reference Range Comments NEUTROPHILS - REL (CELLAVISION)(BEAKER) (test 61 % code = 2816) LYMPHOCYTES - REL (CELLAVISION)(BEAKER) (test 30 % code = 2817) MONOCYTES - REL (CELLAVISION)(BEAKER) (test code 9 % = 2818) BANDS - REL (CELLAVISION)(BEAKER) (test code = 1 % 0 -10 2826) NEUTROPHILS - ABS (CELLAVISION)(BEAKER) (test 19.89 K/ul 1. 56-6.13 code = 2830) LYMPHOCYTES - ABS (CELLAVISION)(BEAKER) (test 9.78 K/ul 1. 18-3.74 code = 2831) MONOCYTES - ABS (CELLAVISION)(BEAKER) (test code 2.93 K/uL 0.24-0.36 = 2832) BANDS - ABS (CELLAVISION)(BEAKER) (test code = 0.33 K/uL 0 .00-0.80 2840) TOTAL COUNTED (BEAKER) (test code = 1351) 100 MANUAL NRBC PER 100 CELLS (BEAKER) (test code = 21 /100 WBC 0-0 1353) WBC MORPHOLOGY (BEAKER) (test code = 487) Normal PLT MORPHOLOGY (BEAKER) (test code = 486) Normal POLYCHROMATOPHILLIC RBCS(BEAKER) (test code = 3+ many 478) HYPOCHROMIA (BEAKER) (test code = 963) 2+ moderate TARGET CELLS (BEAKER) (test code = 480) 2+ moderate SICKLE CELLS (BEAKER) (test code = 767) 2+ moderate MATTHEWS-JOLLY BODIES (BEAKER) (test code = 475) 1+ few ARTIFACT (CELLAVISION)(BEAKER) (test code = Present 3432) PLATELET CONCENTRATION (CELLAVISION)(BEAKER) Adequate (test code = 3438) Received comment: User comments: Slide comments:BASIC METABOLIC [id number] 06:17:00 Test Item Value Reference Range Comments SODIUM (BEAKER) (test 140 meq/L 136-145 code = 381) POTASSIUM (BEAKER) (test 4.6 meq/L 3.5-5.1 code = 379) CHLORIDE (BEAKER) (test 112 meq/L 98-107 code = 382) CO2 (BEAKER) (test code = 20 meq/L 22-29 355) BLOOD UREA NITROGEN 13 mg/dL 7-21 (BEAKER) (test code = 354) CREATININE (BEAKER) (test 0.76 mg/dL 0.57-1.25 code = 358) GLUCOSE RANDOM (BEAKER) 97 mg/dL 70-105 (test code = 652) CALCIUM (BEAKER) (test 9.3 mg/dL 8.4-10.2 code = 697) EGFR (BEAKER) (test code 103 mL/min/1.73 sq m ES TIMATED GFR IS NOT = 1092) ACCURATE CREA TININE CLEARANCE IN PRE DICTING GLOMERULAR FILTR ATION RATE. ESTIMATED GFR IS NOT APPLICABLE F OR DIALYSIS PATIENT S. Specimen slightly ictericRETIC COUNT (AUTOMATED)2018-12-04 07:18:00 Test Item Value Reference Range Comments RETIC COUNT (AUTOMATED) (test code = RETICA) 13.5 % 0.3 -2.3 COMPREHENSIVE METABOLIC [id number] 14:26:00 Test Item Value Reference Range Comments SODIUM (test code = NA) 135 mEq/L 134-147 POTASSIUM (test code = K) 4.4 mEq/L 3.4-5.0 CHLORIDE (test code = CL) 101 mEq/L 100-108 CARBON DIOXIDE (test code = 31 mEq/L 21-33 CO2) ANION GAP (test code = GAP) 7 0-20 GLUCOSE (test code = GLU) 112 mg/dL 70-110 BLOOD UREA NITROGEN (test code 13 mg/dL 7-18 = BUN) GLOMERULAR FILTRATION RATE 134.7 105-110 Units of measure = (test code = GFR) ml/min/1.73 m2 CREATININE (test code = CREAT) 0.6 mg/dL 0.6-1.3 TOTAL PROTEIN (test code = 9.4 g/dL 6.4-8.2 PROT) ALBUMIN (test code = ALB) 3.20 g/dL 3.4-5.0 CALCIUM (test code = CA) 9.0 mg/dL 8.0-10.5 BILIRUBIN TOTAL (test code = 2.30 mg/dL 0.0-1.0 BILT) SGOT/AST (test code = AST) 153 IUnit/L 15-37 SGPT/ALT (test code = ALT) 73 IUnit/L 15-65 ALKALINE PHOSPHATASE TOTAL 169 IUnit/L 20-125 (test code = ALKP) CBC W/AUTO [id number] 14:15:00 Test Item Value Reference Range Comments WHITE BLOOD CELL (test code = WBC) 12.58 x10 3/uL 4.5-11.0 RED BLOOD CELL (test code = RBC) 2.80 x10 6/uL 3.54-5.02 HEMOGLOBIN (test code = HGB) 9.0 g/dL 11.0-15.0 HEMATOCRIT (test code = HCT) 27.6 % 33.0-45.0 MEAN CELL VOLUME (test code = MCV) 98.6 fL 81.0-99.0 MEAN CELL HGB (test code = MCH) 32.1 pg 27.0-33.0 MEAN CELL HGB CONCETRATION (test code = MCHC) 32.6 g/dL 33 .0-37.0 RED CELL DISTRIBUTION WIDTH CV (test code = 21.8 % 11.5 -14.5 RDW) RED CELL DISTRIBUTION WIDTH SD (test code = 78.1 fL 37.0 -54.0 RDW-SD) PLATELET COUNT (test code = PLT) 207 x10 3/uL 150-400 MEAN PLATELET VOLUME (test code = MPV) 11.3 fL 7.0-9.0 MANUAL DIFF REQUIRED (test code = MDIFF) YES WBC [id number] 14:15:00 Test Item Value Reference Range Comments SEGMENTED NEUTROPHILS (test 32 % 37-69 code = SEG) LYMPHOCYTE (test code = 41 % 23-55 LYMPH) MONOCYTE (test code = MON) 17 % 0-10 EOSINOPHIL (test code = 9 % 0.0-4.0 EOS) BASOPHIL (test code = BASO) 1 % 0.0-2.0 NUCLEATED RED BLOOD CELL 7 % (test code = NRBC) POLYCHROMASIA (test code = 2+ POLC) HYPOCHROMIA (test code = SLIGHT HYPO) POIKILOCYTOSIS (test code = 2+ RARE STOMATOCYTES SEEN POIK) BASOPHILIC STIPPLING (test FEW code = STP) ANISOCYTOSIS (test code = 2+ ANISO) MICROCYTOSIS (test code = FEW MICR) MACROCYTOSIS (test code = 2+ MACR) TARGET CELLS (test code = 2+ TGT) TEAR DROP CELLS (test code FEW = TEAR) OVALOCYTES (test code = FEW OVAL) SCHISTOCYTES (test code = FEW ALIVIA) SICKLE CELLS (test code = 2+ SICKL) MATTHEWS-JOLLY BODIES (test SEEN code = HJB) TOXIC GRANULATION (test SLIGHT code = TOX) VACUOLATED NEUTROPHILS Present (test code = VN) PLATELET ESTIMATE (test Adequate THOUSAND ADEQUATE code = PLTEST) PLATELET MORPHOLOGY (test LARGE PLATELETS LARGE PLTS AND GIANT code = PLTMORPH) PLTS SEEN RETIC COUNT (AUTOMATED)2018-12-03 14:15:00 Test Item Value Reference Range Comments RETIC COUNT (AUTOMATED) (test code = RETICA) 18.7 % 0.3 -2.3 BASIC METABOLIC [id number] 07:41:00 Test Item Value Reference Range Comments SODIUM (test code = NA) 135 mEq/L 134-147 POTASSIUM (test code = K) 4.5 mEq/L 3.4-5.0 CHLORIDE (test code = CL) 100 mEq/L 100-108 CARBON DIOXIDE (test code = 31 mEq/L 21-33 CO2) ANION GAP (test code = GAP) 9 0-20 GLUCOSE (test code = GLU) 81 mg/dL 70-110 BLOOD UREA NITROGEN (test code 13 mg/dL 7-18 = BUN) GLOMERULAR FILTRATION RATE 134.7 105-110 Units of measure = (test code = GFR) ml/min/1.73 m2 CREATININE (test code = CREAT) 0.6 mg/dL 0.6-1.3 CALCIUM (test code = CA) 8.8 mg/dL 8.0-10.5 CBC W/AUTO [id number] 06:18:00 Test Item Value Reference Range Comments WHITE BLOOD CELL (test code = WBC) 12.58 x10 3/uL 4.5-11.0 RED BLOOD CELL (test code = RBC) 2.80 x10 6/uL 3.54-5.02 HEMOGLOBIN (test code = HGB) 9.0 g/dL 11.0-15.0 HEMATOCRIT (test code = HCT) 27.6 % 33.0-45.0 MEAN CELL VOLUME (test code = MCV) 98.6 fL 81.0-99.0 MEAN CELL HGB (test code = MCH) 32.1 pg 27.0-33.0 MEAN CELL HGB CONCETRATION (test code = MCHC) 32.6 g/dL 33 .0-37.0 RED CELL DISTRIBUTION WIDTH CV (test code = 21.8 % 11.5 -14.5 RDW) RED CELL DISTRIBUTION WIDTH SD (test code = 78.1 fL 37.0 -54.0 RDW-SD) PLATELET COUNT (test code = PLT) 207 x10 3/uL 150-400 MEAN PLATELET VOLUME (test code = MPV) 11.3 fL 7.0-9.0 LYMPHOCYTE % (test code = LY%) % 14.0-32.0 MANUAL DIFF REQUIRED (test code = MDIFF) RETIC COUNT (AUTOMATED)2018-12-03 06:18:00 Test Item Value Reference Range Comments RETIC COUNT (AUTOMATED) (test code = RETICA) % 0.3 -2.3 CBC W/AUTO [id number] 06:18:00 Test Item Value Reference Range Comments WHITE BLOOD CELL (test code = WBC) 12.58 x10 3/uL 4.5-11.0 RED BLOOD CELL (test code = RBC) 2.80 x10 6/uL 3.54-5.02 HEMOGLOBIN (test code = HGB) 9.0 g/dL 11.0-15.0 HEMATOCRIT (test code = HCT) 27.6 % 33.0-45.0 MEAN CELL VOLUME (test code = MCV) 98.6 fL 81.0-99.0 MEAN CELL HGB (test code = MCH) 32.1 pg 27.0-33.0 MEAN CELL HGB CONCETRATION (test code = MCHC) 32.6 g/dL 33 .0-37.0 RED CELL DISTRIBUTION WIDTH CV (test code = 21.8 % 11.5 -14.5 RDW) RED CELL DISTRIBUTION WIDTH SD (test code = 78.1 fL 37.0 -54.0 RDW-SD) PLATELET COUNT (test code = PLT) 207 x10 3/uL 150-400 MEAN PLATELET VOLUME (test code = MPV) 11.3 fL 7.0-9.0 MANUAL DIFF REQUIRED (test code = MDIFF) YES WBC [id number] 06:18:00 Test Item Value Reference Range Comments ANISOCYTOSIS (test code = ANISO) PLATELET ESTIMATE (test code = PLTEST) THOUSAND ADEQUATE RETIC COUNT (AUTOMATED)2018-12-03 06:18:00 Test Item Value Reference Range Comments RETIC COUNT (AUTOMATED) (test code = RETICA) 18.7 % 0.3 -2.3 CBC W/AUTO [id number] 06:18:00 Test Item Value Reference Range Comments WHITE BLOOD CELL (test code = WBC) 12.58 x10 3/uL 4.5-11.0 RED BLOOD CELL (test code = RBC) 2.80 x10 6/uL 3.54-5.02 HEMOGLOBIN (test code = HGB) 9.0 g/dL 11.0-15.0 HEMATOCRIT (test code = HCT) 27.6 % 33.0-45.0 MEAN CELL VOLUME (test code = MCV) 98.6 fL 81.0-99.0 MEAN CELL HGB (test code = MCH) 32.1 pg 27.0-33.0 MEAN CELL HGB CONCETRATION (test code = MCHC) 32.6 g/dL 33 .0-37.0 RED CELL DISTRIBUTION WIDTH CV (test code = 21.8 % 11.5 -14.5 RDW) RED CELL DISTRIBUTION WIDTH SD (test code = 78.1 fL 37.0 -54.0 RDW-SD) PLATELET COUNT (test code = PLT) 207 x10 3/uL 150-400 MEAN PLATELET VOLUME (test code = MPV) 11.3 fL 7.0-9.0 MANUAL DIFF REQUIRED (test code = MDIFF) YES WBC [id number] 06:18:00 Test Item Value Reference Range Comments ANISOCYTOSIS (test code = ANISO) PLATELET ESTIMATE (test code = PLTEST) THOUSAND ADEQUATE RETIC COUNT (AUTOMATED)2018-12-03 06:18:00 Test Item Value Reference Range Comments RETIC COUNT (AUTOMATED) (test code = RETICA) 18.7 % 0.3 -2.3 CBC W/AUTO [id number] 13:36:00 Test Item Value Reference Range Comments WHITE BLOOD CELL (test code = WBC) 11.86 x10 3/uL 4.5-11.0 RED BLOOD CELL (test code = RBC) 2.63 x10 6/uL 3.54-5.02 HEMOGLOBIN (test code = HGB) 8.7 g/dL 11.0-15.0 HEMATOCRIT (test code = HCT) 26.1 % 33.0-45.0 MEAN CELL VOLUME (test code = MCV) 99.2 fL 81.0-99.0 MEAN CELL HGB (test code = MCH) 33.1 pg 27.0-33.0 MEAN CELL HGB CONCETRATION (test code = MCHC) 33.3 g/dL 33 .0-37.0 RED CELL DISTRIBUTION WIDTH CV (test code = 22.9 % 11.5 -14.5 RDW) RED CELL DISTRIBUTION WIDTH SD (test code = 81.7 fL 37.0 -54.0 RDW-SD) PLATELET COUNT (test code = PLT) 190 x10 3/uL 150-400 MEAN PLATELET VOLUME (test code = MPV) 11.0 fL 7.0-9.0 MANUAL DIFF REQUIRED (test code = MDIFF) YES WBC [id number] 13:36:00 Test Item Value Reference Range Comments SEGMENTED NEUTROPHILS (test code = SEG) 56.6 % 37-69 LYMPHOCYTE (test code = LYMPH) 27.4 % 23-55 REACTIVE LYMPH (test code = RELYMPH) 2.8 % MONOCYTE (test code = MON) 8.5 % 0-10 EOSINOPHIL (test code = EOS) 4.7 % 0.0-4.0 NUCLEATED RED BLOOD CELL (test code = 26.4 % NRBC) POIKILOCYTOSIS (test code = POIK) 1+ ANISOCYTOSIS (test code = ANISO) 2+ MICROCYTOSIS (test code = MICR) 1+ MACROCYTOSIS (test code = MACR) 1+ SPHEROCYTES (test code = SPH) 1+ OVALOCYTES (test code = OVAL) 0 PLATELET ESTIMATE (test code = PLTEST) Adequate THOUSAND ADEQUAT E PLATELET MORPHOLOGY (test code = PLTMORPH) NORMAL RETIC COUNT (AUTOMATED)2018-12-02 13:36:00 Test Item Value Reference Range Comments RETIC COUNT (AUTOMATED) (test code = RETICA) 21.8 % 0.3 -2.3 - NM BONE 3 [id number] 13:05:00 FAX: Shankar Odell I [phone] [place]: St: [facility] FAX: Yoly Falcon MD [phone] Name: RODRIGO OSWALD [facility] : 1980 Age/S: 38/F [address] [place] [address] Unit #: [id number] Loc: [address] [address] Phys: Yoly Kang MD Acct: G [id number] Dis Date: Status: ADM IN PHONE #: [phone] Exam Date: 12/02/2018 1059 FAX #: [phone] Reason: OM RT FOOT EXAMS: CPT CODE: [id number] NM BONE 3 PHASE [id number] TRIPLE PHASE BONE SCAN: HISTORY: Right foot osteomyelitis. COMPARISON EXAMS: [...] scan of the feet and ankles. SL:01 at 2178 Reported and signed by: Jones Cardona M.D. CC: Shankar Persaud MD; Yoly Kang MD Technologist: BALAJI Priest (N)(CT);... Trnscrd Date/Time/By: 12/02/2018 (3123) : By: [facility].VGE/[facility].VGE Orig Print D/T: S: 12/02/2018 (2791) PAGE 1 Signed ReportCBC W/AUTO DIFF 2018-12-02 11:57:00 Test Item Value Reference Range Comments WHITE BLOOD CELL (test code = WBC) 11.86 x10 3/uL 4.5-11.0 RED BLOOD CELL (test code = RBC) 2.63 x10 6/uL 3.54-5.02 HEMOGLOBIN (test code = HGB) 8.7 g/dL 11.0-15.0 HEMATOCRIT (test code = HCT) 26.1 % 33.0-45.0 MEAN CELL VOLUME (test code = MCV) 99.2 fL 81.0-99.0 MEAN CELL HGB (test code = MCH) 33.1 pg 27.0-33.0 MEAN CELL HGB CONCETRATION (test code = MCHC) 33.3 g/dL 33 .0-37.0 RED CELL DISTRIBUTION WIDTH CV (test code = 22.9 % 11.5 -14.5 RDW) RED CELL DISTRIBUTION WIDTH SD (test code = 81.7 fL 37.0 -54.0 RDW-SD) PLATELET COUNT (test code = PLT) 190 x10 3/uL 150-400 MEAN PLATELET VOLUME (test code = MPV) 11.0 fL 7.0-9.0 MANUAL DIFF REQUIRED (test code = MDIFF) YES WBC [id number] 11:57:00 Test Item Value Reference Range Comments SEGMENTED NEUTROPHILS (test code = SEG) 56.6 % 37-69 LYMPHOCYTE (test code = LYMPH) 27.4 % 23-55 REACTIVE LYMPH (test code = RELYMPH) 2.8 % MONOCYTE (test code = MON) 8.5 % 0-10 EOSINOPHIL (test code = EOS) 4.7 % 0.0-4.0 NUCLEATED RED BLOOD CELL (test code = 26.4 % NRBC) POIKILOCYTOSIS (test code = POIK) 1+ ANISOCYTOSIS (test code = ANISO) 2+ MICROCYTOSIS (test code = MICR) 1+ MACROCYTOSIS (test code = MACR) 1+ SPHEROCYTES (test code = SPH) 1+ OVALOCYTES (test code = OVAL) 0 PLATELET ESTIMATE (test code = PLTEST) Adequate THOUSAND ADEQUAT E PLATELET MORPHOLOGY (test code = PLTMORPH) NORMAL RETIC COUNT (AUTOMATED)2018-12-02 11:57:00 Test Item Value Reference Range Comments RETIC COUNT (AUTOMATED) (test code = RETICA) % 0.3 -2.3 CBC W/AUTO [id number] 11:52:00 Test Item Value Reference Range Comments WHITE BLOOD CELL (test code = WBC) 11.86 x10 3/uL 4.5-11.0 RED BLOOD CELL (test code = RBC) 2.63 x10 6/uL 3.54-5.02 HEMOGLOBIN (test code = HGB) 8.7 g/dL 11.0-15.0 HEMATOCRIT (test code = HCT) 26.1 % 33.0-45.0 MEAN CELL VOLUME (test code = MCV) 99.2 fL 81.0-99.0 MEAN CELL HGB (test code = MCH) 33.1 pg 27.0-33.0 MEAN CELL HGB CONCETRATION (test code = MCHC) 33.3 g/dL 33 .0-37.0 RED CELL DISTRIBUTION WIDTH CV (test code = 22.9 % 11.5 -14.5 RDW) RED CELL DISTRIBUTION WIDTH SD (test code = 81.7 fL 37.0 -54.0 RDW-SD) PLATELET COUNT (test code = PLT) 190 x10 3/uL 150-400 MEAN PLATELET VOLUME (test code = MPV) 11.0 fL 7.0-9.0 MANUAL DIFF REQUIRED (test code = MDIFF) YES WBC [id number] 11:52:00 Test Item Value Reference Range Comments ANISOCYTOSIS (test code = ANISO) PLATELET ESTIMATE (test code = PLTEST) THOUSAND ADEQUATE RETIC COUNT (AUTOMATED)2018-12-02 11:52:00 Test Item Value Reference Range Comments RETIC COUNT (AUTOMATED) (test code = RETICA) % 0.3 -2.3 CBC W/AUTO [id number] 11:52:00 Test Item Value Reference Range Comments WHITE BLOOD CELL (test code = WBC) 11.86 x10 3/uL 4.5-11.0 RED BLOOD CELL (test code = RBC) 2.63 x10 6/uL 3.54-5.02 HEMOGLOBIN (test code = HGB) 8.7 g/dL 11.0-15.0 HEMATOCRIT (test code = HCT) 26.1 % 33.0-45.0 MEAN CELL VOLUME (test code = MCV) 99.2 fL 81.0-99.0 MEAN CELL HGB (test code = MCH) 33.1 pg 27.0-33.0 MEAN CELL HGB CONCETRATION (test code = MCHC) 33.3 g/dL 33 .0-37.0 RED CELL DISTRIBUTION WIDTH CV (test code = 22.9 % 11.5 -14.5 RDW) RED CELL DISTRIBUTION WIDTH SD (test code = 81.7 fL 37.0 -54.0 RDW-SD) PLATELET COUNT (test code = PLT) 190 x10 3/uL 150-400 MEAN PLATELET VOLUME (test code = MPV) 11.0 fL 7.0-9.0 MANUAL DIFF REQUIRED (test code = MDIFF) YES WBC [id number] 11:52:00 Test Item Value Reference Range Comments ANISOCYTOSIS (test code = ANISO) PLATELET ESTIMATE (test code = PLTEST) THOUSAND ADEQUATE RETIC COUNT (AUTOMATED)2018-12-02 11:52:00 Test Item Value Reference Range Comments RETIC COUNT (AUTOMATED) (test code = RETICA) % 0.3 -2.3 BASIC METABOLIC [id number] 08:17:00 Test Item Value Reference Range Comments SODIUM (test code = NA) 145 mEq/L 134-147 POTASSIUM (test code = K) 4.6 mEq/L 3.4-5.0 CHLORIDE (test code = CL) 101 mEq/L 100-108 CARBON DIOXIDE (test code = 29 mEq/L 21-33 CO2) ANION GAP (test code = GAP) 20 0-20 GLUCOSE (test code = GLU) 82 mg/dL 70-110 BLOOD UREA NITROGEN (test code 11 mg/dL 7-18 = BUN) GLOMERULAR FILTRATION RATE 112.7 105-110 Units of measure = (test code = GFR) ml/min/1.73 m2 CREATININE (test code = CREAT) 0.7 mg/dL 0.6-1.3 CALCIUM (test code = CA) 8.9 mg/dL 8.0-10.5 CBC W/AUTO [id number] 07:16:00 Test Item Value Reference Range Comments WHITE BLOOD CELL (test code = WBC) 11.86 x10 3/uL 4.5-11.0 RED BLOOD CELL (test code = RBC) 2.63 x10 6/uL 3.54-5.02 HEMOGLOBIN (test code = HGB) 8.7 g/dL 11.0-15.0 HEMATOCRIT (test code = HCT) 26.1 % 33.0-45.0 MEAN CELL VOLUME (test code = MCV) 99.2 fL 81.0-99.0 MEAN CELL HGB (test code = MCH) 33.1 pg 27.0-33.0 MEAN CELL HGB CONCETRATION (test code = MCHC) 33.3 g/dL 33 .0-37.0 RED CELL DISTRIBUTION WIDTH CV (test code = 22.9 % 11.5 -14.5 RDW) RED CELL DISTRIBUTION WIDTH SD (test code = 81.7 fL 37.0 -54.0 RDW-SD) PLATELET COUNT (test code = PLT) 190 x10 3/uL 150-400 MEAN PLATELET VOLUME (test code = MPV) 11.0 fL 7.0-9.0 LYMPHOCYTE % (test code = LY%) % 14.0-32.0 MANUAL DIFF REQUIRED (test code = MDIFF) RETIC COUNT (AUTOMATED)2018-12-02 07:16:00 Test Item Value Reference Range Comments RETIC COUNT (AUTOMATED) (test code = RETICA) % 0.3 -2.3 CBC W/AUTO [id number] 09:49:00 Test Item Value Reference Range Comments WHITE BLOOD CELL (test code = WBC) 13.22 x10 3/uL 4.5-11.0 RED BLOOD CELL (test code = RBC) 2.52 x10 6/uL 3.54-5.02 HEMOGLOBIN (test code = HGB) 8.2 g/dL 11.0-15.0 HEMATOCRIT (test code = HCT) 25.2 % 33.0-45.0 MEAN CELL VOLUME (test code = MCV) 100.0 fL 81.0-99.0 MEAN CELL HGB (test code = MCH) 32.5 pg 27.0-33.0 MEAN CELL HGB CONCETRATION (test code = MCHC) 32.5 g/dL 33 .0-37.0 RED CELL DISTRIBUTION WIDTH CV (test code = 24.8 % 11.5 -14.5 RDW) RED CELL DISTRIBUTION WIDTH SD (test code = 86.5 fL 37.0 -54.0 RDW-SD) PLATELET COUNT (test code = PLT) 188 x10 3/uL 150-400 MEAN PLATELET VOLUME (test code = MPV) 11.2 fL 7.0-9.0 MANUAL DIFF REQUIRED (test code = MDIFF) YES WBC [id number] 09:49:00 Test Item Value Reference Range Comments SEGMENTED NEUTROPHILS (test 48.1 % 37-69 code = SEG) LYMPHOCYTE (test code = 28.7 % 23-55 LYMPH) REACTIVE LYMPH (test code = 1.8 % RELYMPH) MONOCYTE (test code = MON) 16.7 % 0-10 EOSINOPHIL (test code = EOS) 2.8 % 0.0-4.0 METAMYELOCYTE (test code = 1.9 % 0.0-0.0 META) NUCLEATED RED BLOOD CELL 39.8 % (test code = NRBC) POLYCHROMASIA (test code = 2+ POLC) HYPOCHROMIA (test code = 1+ HYPO) POIKILOCYTOSIS (test code = 2+ POIK) BASOPHILIC STIPPLING (test FEW code = STP) ANISOCYTOSIS (test code = 3+ ANISO) MICROCYTOSIS (test code = FEW MICR) MACROCYTOSIS (test code = 2+ MACR) TARGET CELLS (test code = 2+ TGT) TEAR DROP CELLS (test code = 1+ TEAR) ELLIPTOCYTES (test code = 1+ ELL) SCHISTOCYTES (test code = 1+ ALIVIA) STOMATOCYTES (test code = FEW STO) SICKLE CELLS (test code = 2+ SICKL) MATTHEWS-JOLLY BODIES (test FEW code = HJB) TOXIC GRANULATION (test code 1+ = TOX) PLATELET ESTIMATE (test code 180-225 THOUSAND ADEQUATE = PLTEST) PLATELET MORPHOLOGY (test LARGE PLATELETS LARGE PLTS AND FEW code = PLTMORPH) GIANT PLTS SEEN PLT AGGREGATES: SLIG HT CBC W/AUTO [id number] 09:36:00 Test Item Value Reference Range Comments WHITE BLOOD CELL (test code = WBC) 13.22 x10 3/uL 4.5-11.0 RED BLOOD CELL (test code = RBC) 2.52 x10 6/uL 3.54-5.02 HEMOGLOBIN (test code = HGB) 8.2 g/dL 11.0-15.0 HEMATOCRIT (test code = HCT) 25.2 % 33.0-45.0 MEAN CELL VOLUME (test code = MCV) 100.0 fL 81.0-99.0 MEAN CELL HGB (test code = MCH) 32.5 pg 27.0-33.0 MEAN CELL HGB CONCETRATION (test code = MCHC) 32.5 g/dL 33 .0-37.0 RED CELL DISTRIBUTION WIDTH CV (test code = 24.8 % 11.5 -14.5 RDW) RED CELL DISTRIBUTION WIDTH SD (test code = 86.5 fL 37.0 -54.0 RDW-SD) PLATELET COUNT (test code = PLT) 188 x10 3/uL 150-400 MEAN PLATELET VOLUME (test code = MPV) 11.2 fL 7.0-9.0 MANUAL DIFF REQUIRED (test code = MDIFF) YES WBC [id number] 09:36:00 Test Item Value Reference Range Comments ANISOCYTOSIS (test code = ANISO) PLATELET ESTIMATE (test code = PLTEST) THOUSAND ADEQUATE CBC W/AUTO [id number] 09:36:00 Test Item Value Reference Range Comments WHITE BLOOD CELL (test code = WBC) 13.22 x10 3/uL 4.5-11.0 RED BLOOD CELL (test code = RBC) 2.52 x10 6/uL 3.54-5.02 HEMOGLOBIN (test code = HGB) 8.2 g/dL 11.0-15.0 HEMATOCRIT (test code = HCT) 25.2 % 33.0-45.0 MEAN CELL VOLUME (test code = MCV) 100.0 fL 81.0-99.0 MEAN CELL HGB (test code = MCH) 32.5 pg 27.0-33.0 MEAN CELL HGB CONCETRATION (test code = MCHC) 32.5 g/dL 33 .0-37.0 RED CELL DISTRIBUTION WIDTH CV (test code = 24.8 % 11.5 -14.5 RDW) RED CELL DISTRIBUTION WIDTH SD (test code = 86.5 fL 37.0 -54.0 RDW-SD) PLATELET COUNT (test code = PLT) 188 x10 3/uL 150-400 MEAN PLATELET VOLUME (test code = MPV) 11.2 fL 7.0-9.0 MANUAL DIFF REQUIRED (test code = MDIFF) YES WBC [id number] 09:36:00 Test Item Value Reference Range Comments ANISOCYTOSIS (test code = ANISO) PLATELET ESTIMATE (test code = PLTEST) THOUSAND ADEQUATE RETIC COUNT (AUTOMATED)2018-12-01 08:02:00 Test Item Value Reference Range Comments RETIC COUNT (AUTOMATED) (test code = RETICA) 24.7 % 0.3 -2.3 CBC W/AUTO [id number] 07:55:00 Test Item Value Reference Range Comments WHITE BLOOD CELL (test code = WBC) 13.22 x10 3/uL 4.5-11.0 RED BLOOD CELL (test code = RBC) 2.52 x10 6/uL 3.54-5.02 HEMOGLOBIN (test code = HGB) 8.2 g/dL 11.0-15.0 HEMATOCRIT (test code = HCT) 25.2 % 33.0-45.0 MEAN CELL VOLUME (test code = MCV) 100.0 fL 81.0-99.0 MEAN CELL HGB (test code = MCH) 32.5 pg 27.0-33.0 MEAN CELL HGB CONCETRATION (test code = MCHC) 32.5 g/dL 33 .0-37.0 RED CELL DISTRIBUTION WIDTH CV (test code = 24.8 % 11.5 -14.5 RDW) RED CELL DISTRIBUTION WIDTH SD (test code = 86.5 fL 37.0 -54.0 RDW-SD) PLATELET COUNT (test code = PLT) 188 x10 3/uL 150-400 MEAN PLATELET VOLUME (test code = MPV) 11.2 fL 7.0-9.0 LYMPHOCYTE % (test code = LY%) % 14.0-32.0 MANUAL DIFF REQUIRED (test code = MDIFF) BASIC METABOLIC [id number] 07:31:00 Test Item Value Reference Range Comments SODIUM (test code = NA) 139 mEq/L 134-147 POTASSIUM (test code = K) 4.4 mEq/L 3.4-5.0 CHLORIDE (test code = CL) 106 mEq/L 100-108 CARBON DIOXIDE (test code = 28 mEq/L 21-33 CO2) ANION GAP (test code = GAP) 9 0-20 GLUCOSE (test code = GLU) 81 mg/dL 70-110 BLOOD UREA NITROGEN (test code 10 mg/dL 7-18 = BUN) GLOMERULAR FILTRATION RATE 166.2 105-110 Units of measure = (test code = GFR) ml/min/1.73 m2 CREATININE (test code = CREAT) 0.5 mg/dL 0.6-1.3 CALCIUM (test code = CA) 8.6 mg/dL 8.0-10.5 CBC W/AUTO [id number] 12:24:00 Test Item Value Reference Range Comments WHITE BLOOD CELL (test code = WBC) 14.47 x10 3/uL 4.5-11.0 RED BLOOD CELL (test code = RBC) 2.56 x10 6/uL 3.54-5.02 HEMOGLOBIN (test code = HGB) 8.2 g/dL 11.0-15.0 HEMATOCRIT (test code = HCT) 25.3 % 33.0-45.0 MEAN CELL VOLUME (test code = MCV) 98.8 fL 81.0-99.0 MEAN CELL HGB (test code = MCH) 32.0 pg 27.0-33.0 MEAN CELL HGB CONCETRATION (test code = MCHC) 32.4 g/dL 33 .0-37.0 RED CELL DISTRIBUTION WIDTH CV (test code = 25.1 % 11.5 -14.5 RDW) RED CELL DISTRIBUTION WIDTH SD (test code = 83.9 fL 37.0 -54.0 RDW-SD) PLATELET COUNT (test code = PLT) 208 x10 3/uL 150-400 MEAN PLATELET VOLUME (test code = MPV) 11.0 fL 7.0-9.0 MANUAL DIFF REQUIRED (test code = MDIFF) YES WBC [id number] 12:24:00 Test Item Value Reference Range Comments SEGMENTED NEUTROPHILS 38 % 37-69 (test code = SEG) LYMPHOCYTE (test code = 35 % 23-55 LYMPH) MONOCYTE (test code = MON) 19 % 0-10 EOSINOPHIL (test code = 6 % 0.0-4.0 EOS) BASOPHIL (test code = 1 % 0.0-2.0 BASO) METAMYELOCYTE (test code = 1.0 % 0.0-0.0 META) NUCLEATED RED BLOOD CELL 71 % (test code = NRBC) POLYCHROMASIA (test code = 2+ POLC) HYPOCHROMIA (test code = SLIGHT HYPO) POIKILOCYTOSIS (test code 2+ 1+ ELL IPTOCYTES SEENFEW = POIK) STOMATOCYTES SEE N BASOPHILIC STIPPLING (test FEW code = STP) ANISOCYTOSIS (test code = 2+ ANISO) MICROCYTOSIS (test code = 1+ MICR) MACROCYTOSIS (test code = 1+ MACR) TARGET CELLS (test code = 1+ TGT) TEAR DROP CELLS (test code FEW = TEAR) SCHISTOCYTES (test code = 1+ ALIVIA) SICKLE CELLS (test code = 2+ SICKL) MATTHEWS-JOLLY BODIES (test FEW code = HJB) PLATELET ESTIMATE (test Increased THOUSAND ADEQUATE code = PLTEST) PLATELET MORPHOLOGY (test LARGE PLATELETS SOME L ARGE PLTS AND RARE code = PLTMORPH) GIANT PLTS SEEN RETIC COUNT (AUTOMATED)2018-11-30 12:24:00 Test Item Value Reference Range Comments RETIC COUNT (AUTOMATED) (test code = RETICA) 23.3 % 0.3 -2.3 CBC W/AUTO [id number] 12:23:00 Test Item Value Reference Range Comments WHITE BLOOD CELL (test code = WBC) 14.47 x10 3/uL 4.5-11.0 RED BLOOD CELL (test code = RBC) 2.56 x10 6/uL 3.54-5.02 HEMOGLOBIN (test code = HGB) 8.2 g/dL 11.0-15.0 HEMATOCRIT (test code = HCT) 25.3 % 33.0-45.0 MEAN CELL VOLUME (test code = MCV) 98.8 fL 81.0-99.0 MEAN CELL HGB (test code = MCH) 32.0 pg 27.0-33.0 MEAN CELL HGB CONCETRATION (test code = MCHC) 32.4 g/dL 33 .0-37.0 RED CELL DISTRIBUTION WIDTH CV (test code = 25.1 % 11.5 -14.5 RDW) RED CELL DISTRIBUTION WIDTH SD (test code = 83.9 fL 37.0 -54.0 RDW-SD) PLATELET COUNT (test code = PLT) 208 x10 3/uL 150-400 MEAN PLATELET VOLUME (test code = MPV) 11.0 fL 7.0-9.0 MANUAL DIFF REQUIRED (test code = MDIFF) YES WBC [id number] 12:23:00 Test Item Value Reference Range Comments SEGMENTED NEUTROPHILS 38 % 37-69 (test code = SEG) LYMPHOCYTE (test code = 35 % 23-55 LYMPH) MONOCYTE (test code = MON) 19 % 0-10 EOSINOPHIL (test code = 6 % 0.0-4.0 EOS) BASOPHIL (test code = 1 % 0.0-2.0 BASO) METAMYELOCYTE (test code = 1.0 % 0.0-0.0 META) NUCLEATED RED BLOOD CELL 71 % (test code = NRBC) POLYCHROMASIA (test code = 2+ POLC) HYPOCHROMIA (test code = SLIGHT HYPO) POIKILOCYTOSIS (test code 2+ 1+ ELL IPTOCYTES SEENFEW = POIK) STOMATOCYTES SEE N BASOPHILIC STIPPLING (test FEW code = STP) ANISOCYTOSIS (test code = 2+ ANISO) MICROCYTOSIS (test code = 1+ MICR) MACROCYTOSIS (test code = 1+ MACR) TARGET CELLS (test code = 1+ TGT) TEAR DROP CELLS (test code FEW = TEAR) SCHISTOCYTES (test code = 1+ ALIVIA) SICKLE CELLS (test code = 2+ SICKL) MATTHEWS-JOLLY BODIES (test FEW code = HJB) PLATELET ESTIMATE (test Increased THOUSAND ADEQUATE code = PLTEST) PLATELET MORPHOLOGY (test LARGE PLATELETS SOME L ARGE PLTS AND RARE code = PLTMORPH) GIANT PLTS SEEN RETIC COUNT (AUTOMATED)2018-11-30 12:23:00 Test Item Value Reference Range Comments RETIC COUNT (AUTOMATED) (test code = RETICA) % 0.3 -2.3 BASIC METABOLIC [id number] 07:55:00 Test Item Value Reference Range Comments SODIUM (test code = NA) 139 mEq/L 134-147 POTASSIUM (test code = K) 4.2 mEq/L 3.4-5.0 CHLORIDE (test code = CL) 107 mEq/L 100-108 CARBON DIOXIDE (test code = 26 mEq/L 21-33 CO2) ANION GAP (test code = GAP) 10 0-20 GLUCOSE (test code = GLU) 81 mg/dL 70-110 BLOOD UREA NITROGEN (test code 8 mg/dL 7-18 = BUN) GLOMERULAR FILTRATION RATE 166.2 105-110 Units of measure = (test code = GFR) ml/min/1.73 m2 CREATININE (test code = CREAT) 0.5 mg/dL 0.6-1.3 CALCIUM (test code = CA) 8.6 mg/dL 8.0-10.5 CBC W/AUTO [id number] 07:44:00 Test Item Value Reference Range Comments WHITE BLOOD CELL (test code = WBC) 14.47 x10 3/uL 4.5-11.0 RED BLOOD CELL (test code = RBC) 2.56 x10 6/uL 3.54-5.02 HEMOGLOBIN (test code = HGB) 8.2 g/dL 11.0-15.0 HEMATOCRIT (test code = HCT) 25.3 % 33.0-45.0 MEAN CELL VOLUME (test code = MCV) 98.8 fL 81.0-99.0 MEAN CELL HGB (test code = MCH) 32.0 pg 27.0-33.0 MEAN CELL HGB CONCETRATION (test code = MCHC) 32.4 g/dL 33 .0-37.0 RED CELL DISTRIBUTION WIDTH CV (test code = 25.1 % 11.5 -14.5 RDW) RED CELL DISTRIBUTION WIDTH SD (test code = 83.9 fL 37.0 -54.0 RDW-SD) PLATELET COUNT (test code = PLT) 208 x10 3/uL 150-400 MEAN PLATELET VOLUME (test code = MPV) 11.0 fL 7.0-9.0 MANUAL DIFF REQUIRED (test code = MDIFF) YES WBC [id number] 07:44:00 Test Item Value Reference Range Comments ANISOCYTOSIS (test code = ANISO) PLATELET ESTIMATE (test code = PLTEST) THOUSAND ADEQUATE RETIC COUNT (AUTOMATED)2018-11-30 07:44:00 Test Item Value Reference Range Comments RETIC COUNT (AUTOMATED) (test code = RETICA) % 0.3 -2.3 CBC W/AUTO [id number] 07:44:00 Test Item Value Reference Range Comments WHITE BLOOD CELL (test code = WBC) 14.47 x10 3/uL 4.5-11.0 RED BLOOD CELL (test code = RBC) 2.56 x10 6/uL 3.54-5.02 HEMOGLOBIN (test code = HGB) 8.2 g/dL 11.0-15.0 HEMATOCRIT (test code = HCT) 25.3 % 33.0-45.0 MEAN CELL VOLUME (test code = MCV) 98.8 fL 81.0-99.0 MEAN CELL HGB (test code = MCH) 32.0 pg 27.0-33.0 MEAN CELL HGB CONCETRATION (test code = MCHC) 32.4 g/dL 33 .0-37.0 RED CELL DISTRIBUTION WIDTH CV (test code = 25.1 % 11.5 -14.5 RDW) RED CELL DISTRIBUTION WIDTH SD (test code = 83.9 fL 37.0 -54.0 RDW-SD) PLATELET COUNT (test code = PLT) 208 x10 3/uL 150-400 MEAN PLATELET VOLUME (test code = MPV) 11.0 fL 7.0-9.0 MANUAL DIFF REQUIRED (test code = MDIFF) YES WBC [id number] 07:44:00 Test Item Value Reference Range Comments ANISOCYTOSIS (test code = ANISO) PLATELET ESTIMATE (test code = PLTEST) THOUSAND ADEQUATE RETIC COUNT (AUTOMATED)2018-11-30 07:44:00 Test Item Value Reference Range Comments RETIC COUNT (AUTOMATED) (test code = RETICA) % 0.3 -2.3 HGB [id number] 22:58:00 Test Item Value Reference Range Comments HEMOGLOBIN (test code = HGB) 8.1 g/dL 11.0-15.0 HEMATOCRIT (test code = HCT) 25.1 % 33.0-45.0 CBC W/AUTO [id number] 11:20:00 Test Item Value Reference Range Comments WHITE BLOOD CELL (test code = WBC) 17.97 x10 3/uL 4.5-11.0 RED BLOOD CELL (test code = RBC) 1.67 x10 6/uL 3.54-5.02 HEMOGLOBIN (test code = HGB) 5.8 g/dL 11.0-15.0 HEMATOCRIT (test code = HCT) 17.9 % 33.0-45.0 MEAN CELL VOLUME (test code = MCV) 107.2 fL 81.0-99.0 MEAN CELL HGB (test code = MCH) 34.7 pg 27.0-33.0 MEAN CELL HGB CONCETRATION (test code = MCHC) 32.4 g/dL 33 .0-37.0 PLATELET COUNT (test code = PLT) 226 x10 3/uL 150-400 MEAN PLATELET VOLUME (test code = MPV) 11.0 fL 7.0-9.0 MANUAL DIFF REQUIRED (test code = MDIFF) YES WBC [id number] 11:20:00 Test Item Value Reference Range Comments SEGMENTED NEUTROPHILS (test code = SEG) 50.0 % 37-69 LYMPHOCYTE (test code = LYMPH) 35.5 % 23-55 MONOCYTE (test code = MON) 11.8 % 0-10 EOSINOPHIL (test code = EOS) 1.8 % 0.0-4.0 MYELOCYTE (test code = MYELO) 0.9 % 0.0-0.0 NUCLEATED RED BLOOD CELL (test code = 27.3 % NRBC) POLYCHROMASIA (test code = POLC) 1+ HYPOCHROMIA (test code = HYPO) 1+ POIKILOCYTOSIS (test code = POIK) 1+ ANISOCYTOSIS (test code = ANISO) 2+ MACROCYTOSIS (test code = MACR) 2+ ELLIPTOCYTES (test code = ELL) 1+ SICKLE CELLS (test code = SICKL) 1+ PLATELET ESTIMATE (test code = PLTEST) Adequate THOUSAND ADEQUAT E PLATELET MORPHOLOGY (test code = PLTMORPH) NORMAL - XR FOOT 3 + V [id number] 09:12:00 FAX: Juan Jose Fernandez NP [phone] [place]: St: [facility] FAX: Beau Odell [phone] Name: RODRIGO OSWALD [facility] : 1980 Age/S: 38/F [address] [place] [address] Unit #: [id number] Loc: [place] [address] Phys: Juan Jose Fernandez NP Acct: [id number] Dis Date: Status: ADM IN PHONE #: [phone] Exam Date: 11/29/2018830 FAX #: [phone] Reason: R/O CELLULITIS/OM EXAMS: CPT CODE: [id number] XR FOOT 3 + [place] [id number] Right foot 3 views: HISTORY: Cellulitis. FINDINGS: Bony alignment in the foot is satisfactory without fracture or dislocation. No soft tissue foreign body or gas formation. There are no areas of bony destruction or abnormal periosteal reaction to indicate osteomyelitis SL: EG-H at 0912 Reported and signed by: Alessio Salinas M.D. CC: Juan Jose Fernandez DRAIN LAYER; Shankar Persaud MD Technologist: [place] Saba RT(R) Trnscrd Date/Time/By: 11/29/2018 (911) : By: [email or web address] Orig Print D/T: S: 11/29/2018 (15) PAGE 1 Signed ReportCBC W/AUTO [id number] 08:43:00 Test Item Value Reference Range Comments WHITE BLOOD CELL (test code = WBC) 17.97 x10 3/uL 4.5-11.0 RED BLOOD CELL (test code = RBC) 1.67 x10 6/uL 3.54-5.02 HEMOGLOBIN (test code = HGB) 5.8 g/dL 11.0-15.0 HEMATOCRIT (test code = HCT) 17.9 % 33.0-45.0 MEAN CELL VOLUME (test code = MCV) 107.2 fL 81.0-99.0 MEAN CELL HGB (test code = MCH) 34.7 pg 27.0-33.0 MEAN CELL HGB CONCETRATION (test code = MCHC) 32.4 g/dL 33 .0-37.0 PLATELET COUNT (test code = PLT) 226 x10 3/uL 150-400 MEAN PLATELET VOLUME (test code = MPV) 11.0 fL 7.0-9.0 MANUAL DIFF REQUIRED (test code = MDIFF) YES WBC [id number] 08:43:00 Test Item Value Reference Range Comments ANISOCYTOSIS (test code = ANISO) PLATELET ESTIMATE (test code = PLTEST) THOUSAND ADEQUATE CBC W/AUTO [id number] 08:43:00 Test Item Value Reference Range Comments WHITE BLOOD CELL (test code = WBC) 17.97 x10 3/uL 4.5-11.0 RED BLOOD CELL (test code = RBC) 1.67 x10 6/uL 3.54-5.02 HEMOGLOBIN (test code = HGB) 5.8 g/dL 11.0-15.0 HEMATOCRIT (test code = HCT) 17.9 % 33.0-45.0 MEAN CELL VOLUME (test code = MCV) 107.2 fL 81.0-99.0 MEAN CELL HGB (test code = MCH) 34.7 pg 27.0-33.0 MEAN CELL HGB CONCETRATION (test code = MCHC) 32.4 g/dL 33 .0-37.0 PLATELET COUNT (test code = PLT) 226 x10 3/uL 150-400 MEAN PLATELET VOLUME (test code = MPV) 11.0 fL 7.0-9.0 MANUAL DIFF REQUIRED (test code = MDIFF) YES WBC [id number] 08:43:00 Test Item Value Reference Range Comments ANISOCYTOSIS (test code = ANISO) PLATELET ESTIMATE (test code = PLTEST) THOUSAND ADEQUATE BASIC METABOLIC [id number] 08:20:00 Test Item Value Reference Range Comments SODIUM (test code = NA) 138 mEq/L 134-147 POTASSIUM (test code = K) 3.9 mEq/L 3.4-5.0 CHLORIDE (test code = CL) 110 mEq/L 100-108 CARBON DIOXIDE (test code = 23 mEq/L 21-33 CO2) ANION GAP (test code = GAP) 9 0-20 GLUCOSE (test code = GLU) 112 mg/dL 70-110 BLOOD UREA NITROGEN (test code 7 mg/dL 7-18 = BUN) GLOMERULAR FILTRATION RATE 134.7 105-110 Units of measure = (test code = GFR) ml/min/1.73 m2 CREATININE (test code = CREAT) 0.6 mg/dL 0.6-1.3 CALCIUM (test code = CA) 7.8 mg/dL 8.0-10.5 [id number] 08:20:00 Test Item Value Reference Range Comments PHOSPHOROUS (test code = PHOS) 4.2 mg/dL 2.5-4.9 [id number] 08:20:00 Test Item Value Reference Range Comments MAGNESIUM (test code = MAG) 1.70 mg/dL 1.8-2.4 UR HCG [id number] 06:20:00 Test Item Value Reference Range Comments UR HCG QUAL (test code = HCGQLU) NEGATIVE NEGATIVE URINALYSIS [id number] 06:20:00 Test Item Value Reference Range Comments UA COLOR (test code = COLU) YELLOW YEL/STRAW UA APPEARANCE (test code = APPU) CLEAR CLEAR UA GLUCOSE DIPSTICK (test code = DGLUU) NEGATIVE NEGATIVE UA BILIRUBIN DIPSTICK (test code = BILU) NEGATIVE NEGATIV E UA KETONE DIPSTICK (test code = KETU) NEGATIVE NEGATIVE UA SPECIFIC GRAVITY (test code = SGU) 1.010 1.005-1.03 0 UA BLOOD DIPSTICK (test code = HALEY) 1+ NEGATIVE UA PH DIPSTICK (test code = NEERU) 5.0 5.0-7.0 UA PROTEIN DIPSTICK (test code = PROU) NEGATIVE NEGATIVE UA UROBILINIOGEN DIPSTICK (test code = URO) 0.2 mg/dL 0.2- 1.0 UA NITRITE DIPSTICK (test code = RAJENDRA) NEGATIVE NEGATIVE UA LEUKOCYTE ESTERASE DIPSTICK (test code = NEGATIVE NEGA TIVE LEUU) UA WBC (test code = WBCU) 0-3 WBC/HPF 0-3 UA RBC (test code = RBCU) 0-3 RBC/HPF 0-3 UA BACTERIA (test code = BACU) NONE SEEN /HPF NONE SEEN UA SQUAMOUS CELLS (test code = SQU) 0-5 /HPF NONE SEEN UA MUCUS (test code = MUCU) TRACE /LPF NONE SEEN COMMENTS: Clean CatchUA CULT [id number] 06:20:00 Test Item Value Reference Range Comments UA CULTURE NEEDED? (test NO, WBC<10 Criteria Culture Chk Cri teria not met, Urine code = UACULT) Culture cancelle d. COMMENTS: Clean CatchPROCALCITONIN (PCT)2018-11-29 00:21:00 Test Item Value Reference Range Comments PROCALCITONIN (PCT) (test 0.23 ng/mL 0.00-0.05 PROCAL CITONIN (PCT) NORMAL code = PROCAL) RANGE (ADULT): < 0.05 NG/ML. * a concentration <0.5 ng/mL represents a low risk of severe sepsis an d/or septic shock.* a concen tration >2 ng/mL represents a high risk of severe sepsi s and/or septic shock.Nev ertheless, concentrations < 0.5 ng/mL do not exclude anin fection, on account of local ized infections (with outsystemic signs) which can be associated with such lowcon centrations, or a systemic in fection in its initialstages (< 6 hours). Furthermore, inc reased procalcitonincan occur without infection. PCT c oncentrations between 0.5and 2 .0 ng/mL should be interp reted taking into account the patient's history. It is r ecommended to retest PCT withi n6-24 hours if any concentratio ns <2 ng/mL are obtained. - XR CHEST 1 [id number] 23:30:00 FAX: Na Chauhan DO [place]: St: ADM Name: RODRIGO OSWALD [facility] : 1980 Age/S: 38/F [address] [place] [address] Unit#: [id number] Loc: [place] [address] Phys: Na Chauhan Acct: [id number] Dis Date: Status: ADM IN PHONE #: [phone] Exam Date: 11/28/2018 1480 FAX #: [phone] Reason: fever EXAMS: CPT CODE: [id number] XR CHEST 1 V [id number] EXAM: CR, XR chest one view: 11/28/2018, [...] in place, tip at atriocaval junction. SL: [JSYED-H] at 2330 Reported and signed by: Nitesh Garcia M.D. CC: Na Chauhan DO Technologist: RT Yisel(R) Trnscrd Date/Time/By: 11/28/2018 (6880) : By: [email or web address] Orig Print D/T: S: 11/28/2018 (2124) PAGE 1 Signed ReportTROPONIN-I [id number] 23:27:00 Test Item Value Reference Range Comments TROPONIN-I RAPID (test 0.00 ng/mL 0.00-0.08 Performed by certified concrete batch plant operator code = TROPIRAP) at [facility] Negative: <= 0.08 Positive: >= 0.09An elevated troponi n value alone is not sufficient t odiagnose a myocardial infar ction. Rather, the patient scli nical presentation (hi story, physical exam) and ECGsho uld be used in conjunction with troponin in thediagnostic ev aluation of suspected myocar dial infarction. Aserial sampling protocol is recommended to f acilitate the identification o f temporal changes in tropo huma levels characteristic o f [place]. CHEMISTRY 8 [id number] 23:26:00 Test Item Value Reference Range Comments ISTAT-SODIUM (test code = NAP) MMOL/L 134-147 ISTAT-POTASSIUM (test code = KP) MMOL/L 3.4-5.0 ISTAT-CHLORIDE (test code = CLP) MMOL/L 100-108 ISTAT CARBON DIOXIDE (test code = ISTAT-CO2) mmol/L 21- 33 ISTAT CALCIUM IONIZED (test code = ISTAT-MUKESH) MG/DL 1. 12-1.32 ISTAT-GLUCOSE (test code = GLUP) MG/DL 70-110 ISTAT-BUN (test code = BUNP) MG/DL 7-18 BEDSIDE CREATININE (test code = CREATBED) MG/DL 0.6-1. 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 [facility] ISTAT CARBON DIOXIDE (test 25.0 mmol/L 21-33 code = ISTAT-CO2) ISTAT CALCIUM IONIZED (test 1.16 MG/DL 1.12-1.32 code = ISTAT-MUKESH) ISTAT-GLUCOSE (test code = 78 MG/DL 70-110 GLUP) ISTAT-BUN (test code = BUNP) 6 MG/DL 7-18 BEDSIDE CREATININE (test code 0.4 MG/DL 0.6-1.3 = CREATBED) GLOMERULAR FILTRATION RATE 229 ML/MIN POC (test code = GFRBED) LACTIC ACID [id number] 23:20:00 Test Item Value Reference Range Comments LACTIC ACID POC (test code = 0.8 MMOL/L 0.90-1.70 Per formed by certified LACTP) 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 [facility] HEPATIC FUNCTION [id number] 23:12:00 Test Item Value Reference Range Comments TOTAL PROTEIN (test code = PROT) 8.4 g/dL 6.4-8.2 ALBUMIN (test code = ALB) 3.00 g/dL 3.4-5.0 BILIRUBIN TOTAL (test code = BILT) 1.90 mg/dL 0.0-1.0 BILIRUBIN DIRECT (test code = BILD) 0.70 MG/DL 0.0-0.30 BILIRUBIN INDIRECT (test code = BILIND) 1.20 MG/DL SGOT/AST (test code = AST) 127 IUnit/L 15-37 SGPT/ALT (test code = ALT) 74 IUnit/L 15-65 ALKALINE PHOSPHATASE TOTAL (test code = ALKP) 175 IUnit/L 20 -125 CBC W/AUTO [id number] 23:12:00 Test Item Value Reference Range Comments WHITE BLOOD CELL (test code = WBC) 21.28 x10 3/uL 4.5-11.0 RED BLOOD CELL (test code = RBC) 1.75 x10 6/uL 3.54-5.02 HEMOGLOBIN (test code = HGB) 6.1 g/dL 11.0-15.0 HEMATOCRIT (test code = HCT) 18.3 % 33.0-45.0 MEAN CELL VOLUME (test code = MCV) 104.6 fL 81.0-99.0 MEAN CELL HGB (test code = MCH) 34.9 pg 27.0-33.0 MEAN CELL HGB CONCETRATION (test code = MCHC) 33.3 g/dL 33 .0-37.0 RED CELL DISTRIBUTION WIDTH CV (test code = 29.7 % 11.5 -14.5 RDW) RED CELL DISTRIBUTION WIDTH SD (test code = 106.2 fL 37.0 -54.0 RDW-SD) PLATELET COUNT (test code = PLT) 228 x10 3/uL 150-400 MEAN PLATELET VOLUME (test code = MPV) 10.4 fL 7.0-9.0 MANUAL DIFF REQUIRED (test code = MDIFF) YES WBC [id number] 23:12:00 Test Item Value Reference Range Comments SEGMENTED NEUTROPHILS (test code = SEG) 54.3 % 37-69 LYMPHOCYTE (test code = LYMPH) 30.5 % 23-55 MONOCYTE (test code = MON) 10.5 % 0-10 EOSINOPHIL (test code = EOS) 4.7 % 0.0-4.0 NUCLEATED RED BLOOD CELL (test code = 47.6 % NRBC) POLYCHROMASIA (test code = POLC) 2+ HYPOCHROMIA (test code = HYPO) 1+ POIKILOCYTOSIS (test code = POIK) 3+ ANISOCYTOSIS (test code = ANISO) 2+ MICROCYTOSIS (test code = MICR) 1+ MACROCYTOSIS (test code = MACR) 1+ TARGET CELLS (test code = TGT) 1+ TEAR DROP CELLS (test code = TEAR) 1+ SICKLE CELLS (test code = SICKL) 2+ PLATELET ESTIMATE (test code = PLTEST) Adequate THOUSAND ADEQUAT E RETIC COUNT (AUTOMATED)2018-11-28 23:12:00 Test Item Value Reference Range Comments RETIC COUNT (AUTOMATED) (test code = RETICA) 33.7 % 0.3 -2.3 CBC W/AUTO [id number] 23:10:00 Test Item Value Reference Range Comments WHITE BLOOD CELL (test code = WBC) 21.28 x10 3/uL 4.5-11.0 RED BLOOD CELL (test code = RBC) 1.75 x10 6/uL 3.54-5.02 HEMOGLOBIN (test code = HGB) 6.1 g/dL 11.0-15.0 HEMATOCRIT (test code = HCT) 18.3 % 33.0-45.0 MEAN CELL VOLUME (test code = MCV) 104.6 fL 81.0-99.0 MEAN CELL HGB (test code = MCH) 34.9 pg 27.0-33.0 MEAN CELL HGB CONCETRATION (test code = MCHC) 33.3 g/dL 33 .0-37.0 RED CELL DISTRIBUTION WIDTH CV (test code = 29.7 % 11.5 -14.5 RDW) RED CELL DISTRIBUTION WIDTH SD (test code = 106.2 fL 37.0 -54.0 RDW-SD) PLATELET COUNT (test code = PLT) 228 x10 3/uL 150-400 MEAN PLATELET VOLUME (test code = MPV) 10.4 fL 7.0-9.0 MANUAL DIFF REQUIRED (test code = MDIFF) YES WBC [id number] 23:10:00 Test Item Value Reference Range Comments ANISOCYTOSIS (test code = ANISO) PLATELET ESTIMATE (test code = PLTEST) THOUSAND ADEQUATE RETIC COUNT (AUTOMATED)2018-11-28 23:10:00 Test Item Value Reference Range Comments RETIC COUNT (AUTOMATED) (test code = RETICA) 33.7 % 0.3 -2.3 CBC W/AUTO [id number] 23:10:00 Test Item Value Reference Range Comments WHITE BLOOD CELL (test code = WBC) 21.28 x10 3/uL 4.5-11.0 RED BLOOD CELL (test code = RBC) 1.75 x10 6/uL 3.54-5.02 HEMOGLOBIN (test code = HGB) 6.1 g/dL 11.0-15.0 HEMATOCRIT (test code = HCT) 18.3 % 33.0-45.0 MEAN CELL VOLUME (test code = MCV) 104.6 fL 81.0-99.0 MEAN CELL HGB (test code = MCH) 34.9 pg 27.0-33.0 MEAN CELL HGB CONCETRATION (test code = MCHC) 33.3 g/dL 33 .0-37.0 RED CELL DISTRIBUTION WIDTH CV (test code = 29.7 % 11.5 -14.5 RDW) RED CELL DISTRIBUTION WIDTH SD (test code = 106.2 fL 37.0 -54.0 RDW-SD) PLATELET COUNT (test code = PLT) 228 x10 3/uL 150-400 MEAN PLATELET VOLUME (test code = MPV) 10.4 fL 7.0-9.0 MANUAL DIFF REQUIRED (test code = MDIFF) YES WBC [id number] 23:10:00 Test Item Value Reference Range Comments ANISOCYTOSIS (test code = ANISO) PLATELET ESTIMATE (test code = PLTEST) THOUSAND ADEQUATE RETIC COUNT (AUTOMATED)2018-11-28 23:10:00 Test Item Value Reference Range Comments RETIC COUNT (AUTOMATED) (test code = RETICA) 33.7 % 0.3 -2.3 PROTHROMBIN [id number] 23:07:00 Test Item Value Reference Range Comments PROTHROMBIN TIME PATIENT 14.8 SECONDS 9.3-12.9 (test code = PTP) INTERNATIONAL NORMAL RATIO 1.3 0.8-1.2 TARGET INR BY (test code = INR) INDICATION I ndication INR1. Prophylax is of venous thrombosis 2.0 - 3.0 (orthopedi c surgery), Prophylaxis of venous thrombosis (othe r than high-risk surg davon), Treatment of Heather p Vein Thrombosis/Pulmo nary Embolism, Preven tion of systemic embolis m - Tissue heart valves, Acute Myocardial Infar ction (to prevent system ic embolism), Valvular heart d isease, Atrial Fibrillat ion, Bileaflet mechan ical valve in aortic positi on.2. Mechanical prost hetic valves (high risk), 2.5 - 3.5 Presence of Lupu s Anticoagulant or Antiphospholipid Antibodies, Prevention of systemic embolism - Acute Myocardial Infarction (to prevent recurrent infarc t). THROMBOPLASTIN TIME [id number] 23:07:00 Test Item Value Reference Range Comments THROMBOPLASTIN TIME PARTIAL 36.8 Seconds 25.0-39.5 Therapeutic Range: (test code = PTT) 61.8-83.8 Sec Effective 09/17/2013 CBC W/AUTO [id number] 22:53:00 Test Item Value Reference Range Comments WHITE BLOOD CELL (test code = WBC) 21.28 x10 3/uL 4.5-11.0 RED BLOOD CELL (test code = RBC) 1.75 x10 6/uL 3.54-5.02 HEMOGLOBIN (test code = HGB) 6.1 g/dL 11.0-15.0 HEMATOCRIT (test code = HCT) 18.3 % 33.0-45.0 MEAN CELL VOLUME (test code = MCV) 104.6 fL 81.0-99.0 MEAN CELL HGB (test code = MCH) 34.9 pg 27.0-33.0 MEAN CELL HGB CONCETRATION (test code = MCHC) 33.3 g/dL 33 .0-37.0 RED CELL DISTRIBUTION WIDTH CV (test code = 29.7 % 11.5 -14.5 RDW) RED CELL DISTRIBUTION WIDTH SD (test code = 106.2 fL 37.0 -54.0 RDW-SD) PLATELET COUNT (test code = PLT) 228 x10 3/uL 150-400 MEAN PLATELET VOLUME (test code = MPV) 10.4 fL 7.0-9.0 LYMPHOCYTE % (test code = LY%) % 14.0-32.0 MANUAL DIFF REQUIRED (test code = MDIFF) RETIC COUNT (AUTOMATED)2018-11-28 22:53:00 Test Item Value Reference Range Comments RETIC COUNT (AUTOMATED) (test code = RETICA) 33.7 % 0.3 -2.3 [id number] 11:06:00 Test Item Value Reference Range Comments HEMOGLOBIN (BEAKER) (test code = 410) 7.1 GM/DL 11.2-15.7 CBC W/PLT COUNT & AUTO [id number] 09:43:00 Test Item Value Reference Range Comments WHITE BLOOD CELL COUNT (BEAKER) (test code = 16.2 K/ L 3.5 -10.5 775) RED BLOOD CELL COUNT (BEAKER) (test code = 761) 2.13 M/ L 3.93-5.22 HEMOGLOBIN (BEAKER) (test code = 410) 6.7 GM/DL 11.2-15.7 HEMATOCRIT (BEAKER) (test code = 411) 20.8 % 34.1-44.9 MEAN CORPUSCULAR VOLUME (BEAKER) (test code = 97.7 fL 79 .4-94.8 753) MEAN CORPUSCULAR HEMOGLOBIN (BEAKER) (test code 31.5 pg 25.6-32.2 = 751) MEAN CORPUSCULAR HEMOGLOBIN CONC (BEAKER) (test 32.2 GM/DL 32.2-35.5 code = 752) RED CELL DISTRIBUTION WIDTH (BEAKER) (test code 19.5 % 11.7-14.4 = 412) PLATELET COUNT (BEAKER) (test code = 756) 293 K/CU MM 150-45 0 MEAN PLATELET VOLUME (BEAKER) (test code = 754) 11.0 fL 9.4-12.3 NUCLEATED RED BLOOD CELLS (BEAKER) (test code = 1 /100 WBC 0-0 413) (CELLAVISION MANUAL DIFF)2018-10-04 09:43:00 Test Item Value Reference Range Comments NEUTROPHILS - REL (CELLAVISION)(BEAKER) (test 41 % code = 2816) LYMPHOCYTES - REL (CELLAVISION)(BEAKER) (test 43 % code = 2817) MONOCYTES - REL (CELLAVISION)(BEAKER) (test code 7 % = 2818) EOSINOPHILS - REL (CELLAVISION)(BEAKER) (test 8 % code = 2819) NEUTROPHILS - ABS (CELLAVISION)(BEAKER) (test 6.64 K/ul 1. 56-6.13 code = 2830) LYMPHOCYTES - ABS (CELLAVISION)(BEAKER) (test 6.97 K/ul 1. 18-3.74 code = 2831) MONOCYTES - ABS (CELLAVISION)(BEAKER) (test code 1.13 K/uL 0.24-0.36 = 2832) EOSINOPHILS - ABS (CELLAVISION)(BEAKER) (test 1.30 K/uL 0. 04-0.36 code = 2834) TOTAL COUNTED (BEAKER) (test code = 1351) 100 MANUAL NRBC PER 100 CELLS (BEAKER) (test code = 2 /100 WBC 0-0 1353) WBC MORPHOLOGY (BEAKER) (test code = 487) Normal LARGE PLT(BEAKER) (test code = 2156) Present POLYCHROMATOPHILLIC RBCS(BEAKER) (test code = 2+ moderate 478) HYPOCHROMIA (BEAKER) (test code = 963) 1+ few TARGET CELLS (BEAKER) (test code = 480) 2+ moderate SICKLE CELLS (BEAKER) (test code = 767) 2+ moderate MATTHEWS-JOLLY BODIES (BEAKER) (test code = 475) 1+ few ARTIFACT (CELLAVISION)(BEAKER) (test code = Present 3432) PLATELET CONCENTRATION (CELLAVISION)(BEAKER) Adequate (test code = 3438) Received comment: User comments: Slide comments:BASIC METABOLIC [id number] 06:18:00 Test Item Value Reference Range Comments SODIUM (BEAKER) (test 138 meq/L 136-145 code = 381) POTASSIUM (BEAKER) (test 4.5 meq/L 3.5-5.1 code = 379) CHLORIDE (BEAKER) (test 102 meq/L 98-107 code = 382) CO2 (BEAKER) (test code = 30 meq/L 22-29 355) BLOOD UREA NITROGEN 13 mg/dL 7-21 (BEAKER) (test code = 354) CREATININE (BEAKER) (test 0.62 mg/dL 0.57-1.25 code = 358) GLUCOSE RANDOM (BEAKER) 94 mg/dL 70-105 (test code = 652) CALCIUM (BEAKER) (test 8.9 mg/dL 8.4-10.2 code = 697) EGFR (BEAKER) (test code 130 mL/min/1.73 sq m ES TIMATED GFR IS NOT = 1092) ACCURATE CREA TININE CLEARANCE IN PRE DICTING GLOMERULAR FILTR ATION RATE. ESTIMATED GFR IS NOT APPLICABLE F OR DIALYSIS PATIENT S. Specimen slightly ictericCBC W/PLT COUNT & AUTO [id number] 13:29:00 Test Item Value Reference Range Comments WHITE BLOOD CELL COUNT (BEAKER) (test code = 15.0 K/ L 3.5 -10.5 775) RED BLOOD CELL COUNT (BEAKER) (test code = 761) 2.07 M/ L 3.93-5.22 HEMOGLOBIN (BEAKER) (test code = 410) 6.6 GM/DL 11.2-15.7 HEMATOCRIT (BEAKER) (test code = 411) 20.3 % 34.1-44.9 MEAN CORPUSCULAR VOLUME (BEAKER) (test code = 98.1 fL 79 .4-94.8 753) MEAN CORPUSCULAR HEMOGLOBIN (BEAKER) (test code 31.9 pg 25.6-32.2 = 751) MEAN CORPUSCULAR HEMOGLOBIN CONC (BEAKER) (test 32.5 GM/DL 32.2-35.5 code = 752) RED CELL DISTRIBUTION WIDTH (BEAKER) (test code 19.6 % 11.7-14.4 = 412) PLATELET COUNT (BEAKER) (test code = 756) 281 K/CU MM 150-45 0 MEAN PLATELET VOLUME (BEAKER) (test code = 754) 10.5 fL 9.4-12.3 NUCLEATED RED BLOOD CELLS (BEAKER) (test code = 1 /100 WBC 0-0 413) (CELLAVISION MANUAL DIFF)2018-10-03 13:29:00 Test Item Value Reference Range Comments NEUTROPHILS - REL (CELLAVISION)(BEAKER) (test 48 % code = 2816) LYMPHOCYTES - REL (CELLAVISION)(BEAKER) (test 25 % code = 2817) MONOCYTES - REL (CELLAVISION)(BEAKER) (test code 15 % = 2818) EOSINOPHILS - REL (CELLAVISION)(BEAKER) (test 9 % code = 2819) BANDS - REL (CELLAVISION)(BEAKER) (test code = 1 % 0 -10 2826) ATYPICAL LYMPHOCYTES - REL (CELLAVISION)(BEAKER) 2 % 0-0 (test code = 2829) NEUTROPHILS - ABS (CELLAVISION)(BEAKER) (test 7.20 K/ul 1. 56-6.13 code = 2830) LYMPHOCYTES - ABS (CELLAVISION)(BEAKER) (test 3.75 K/ul 1. 18-3.74 code = 2831) MONOCYTES - ABS (CELLAVISION)(BEAKER) (test code 2.25 K/uL 0.24-0.36 = 2832) EOSINOPHILS - ABS (CELLAVISION)(BEAKER) (test 1.35 K/uL 0. 04-0.36 code = 2834) BANDS - ABS (CELLAVISION)(BEAKER) (test code = 0.15 K/uL 0 .00-0.80 2840) ATYPICAL LYMPHOCYTES - ABS (CELLAVISION)(BEAKER) 0.30 K/uL 0.00-0.00 (test code = 2858) TOTAL COUNTED (BEAKER) (test code = 1351) 100 MANUAL NRBC PER 100 CELLS (BEAKER) (test code = 2 /100 WBC 0-0 1353) SMUDGE CELLS (BEAKER) (test code = 1371) Present GIANT PLATELETS (BEAKER) (test code = 313) Present POLYCHROMATOPHILLIC RBCS(BEAKER) (test code = 1+ few 478) ANISOCYTOSIS (BEAKER) (test code = 961) 2+ moderate MACROCYTES (BEAKER) (test code = 964) 2+ moderate TARGET CELLS (BEAKER) (test code = 480) 1+ few SCHISTOCYTES (BEAKER) (test code = 765) 1+ few SICKLE CELLS (BEAKER) (test code = 767) 2+ moderate OVALOCYTES (BEAKER) (test code = 477) 1+ few HELMET CELLS (CELLAVISION)(BEAKER) (test code = 1+ few 3434) PLATELET CONCENTRATION (CELLAVISION)(BEAKER) Adequate (test code = 3438) Received comment: User comments: Slide comments:BASIC METABOLIC [id number] 07:09:00 Test Item Value Reference Range Comments SODIUM (BEAKER) (test 140 meq/L 136-145 code = 381) POTASSIUM (BEAKER) (test 4.3 meq/L 3.5-5.1 code = 379) CHLORIDE (BEAKER) (test 105 meq/L 98-107 code = 382) CO2 (BEAKER) (test code = 29 meq/L 22-29 355) BLOOD UREA NITROGEN 14 mg/dL 7-21 (BEAKER) (test code = 354) CREATININE (BEAKER) (test 0.63 mg/dL 0.57-1.25 code = 358) GLUCOSE RANDOM (BEAKER) 102 mg/dL 70-105 (test code = 652) CALCIUM (BEAKER) (test 8.5 mg/dL 8.4-10.2 code = 697) EGFR (BEAKER) (test code 128 mL/min/1.73 sq m ES TIMATED GFR IS NOT = 1092) ACCURATE CREA TININE CLEARANCE IN PRE DICTING GLOMERULAR FILTR ATION RATE. ESTIMATED GFR IS NOT APPLICABLE F OR DIALYSIS PATIENT S. CBC W/PLT COUNT & AUTO [id number] 12:29:00 Test Item Value Reference Range Comments WHITE BLOOD CELL COUNT (BEAKER) (test code = 14.2 K/ L 3.5 -10.5 775) RED BLOOD CELL COUNT (BEAKER) (test code = 761) 2.11 M/ L 3.93-5.22 HEMOGLOBIN (BEAKER) (test code = 410) 6.7 GM/DL 11.2-15.7 HEMATOCRIT (BEAKER) (test code = 411) 20.6 % 34.1-44.9 MEAN CORPUSCULAR VOLUME (BEAKER) (test code = 97.6 fL 79 .4-94.8 753) MEAN CORPUSCULAR HEMOGLOBIN (BEAKER) (test code 31.8 pg 25.6-32.2 = 751) MEAN CORPUSCULAR HEMOGLOBIN CONC (BEAKER) (test 32.5 GM/DL 32.2-35.5 code = 752) RED CELL DISTRIBUTION WIDTH (BEAKER) (test code 20.2 % 11.7-14.4 = 412) PLATELET COUNT (BEAKER) (test code = 756) 280 K/CU MM 150-45 0 MEAN PLATELET VOLUME (BEAKER) (test code = 754) 10.3 fL 9.4-12.3 NUCLEATED RED BLOOD CELLS (BEAKER) (test code = 1 /100 WBC 0-0 413) (CELLAVISION MANUAL DIFF)2018-10-02 12:29:00 Test Item Value Reference Range Comments NEUTROPHILS - REL (CELLAVISION)(BEAKER) (test 43 % code = 8736) LYMPHOCYTES - REL (CELLAVISION)(BEAKER) (test 35 % code = 2817) MONOCYTES - REL (CELLAVISION)(BEAKER) (test code 8 % = 2818) EOSINOPHILS - REL (CELLAVISION)(BEAKER) (test 8 % code = 2819) BASOPHILS - REL (CELLAVISION)(BEAKER) (test code 2 % = 2820) MYELOCYTES - REL (CELLAVISION)(BEAKER) (test 1 % 0-0 code = 2822) PROMYELOCYTES - REL (CELLAVSION)(BEAKER) (test 1 % 0 -0 code = 2825) ATYPICAL LYMPHOCYTES - REL (CELLAVISION)(BEAKER) 2 % 0-0 (test code = 2829) NEUTROPHILS - ABS (CELLAVISION)(BEAKER) (test 6.11 K/ul 1. 56-6.13 code = 2830) LYMPHOCYTES - ABS (CELLAVISION)(BEAKER) (test 4.97 K/ul 1. 18-3.74 code = 2831) MONOCYTES - ABS (CELLAVISION)(BEAKER) (test code 1.14 K/uL 0.24-0.36 = 2832) EOSINOPHILS - ABS (CELLAVISION)(BEAKER) (test 1.14 K/uL 0. 04-0.36 code = 2834) BASOPHILS - ABS (CELLAVISION)(BEAKER) (test code 0.28 K/uL 0.01-0.08 = 2835) MYELOCYTES-ABS (CELLAVISION)(BEAKER) (test code 0.14 K/uL 0.00-0.00 = 2837) PROMYELOCYTES - ABS (CELLAVISION)(BEAKER) (test 0.14 K/uL 0.00-0.00 code = 2838) ATYPICAL LYMPHOCYTES - ABS (CELLAVISION)(BEAKER) 0.28 K/uL 0.00-0.00 (test code = 2858) TOTAL COUNTED (BEAKER) (test code = 1351) 100 MANUAL NRBC PER 100 CELLS (BEAKER) (test code = 2 /100 WBC 0-0 1353) SMUDGE CELLS (BEAKER) (test code = 1371) Present GIANT PLATELETS (BEAKER) (test code = 313) Present POLYCHROMATOPHILLIC RBCS(BEAKER) (test code = 1+ few 478) ANISOCYTOSIS (BEAKER) (test code = 961) 2+ moderate MACROCYTES (BEAKER) (test code = 964) 2+ moderate TARGET CELLS (BEAKER) (test code = 480) 1+ few SCHISTOCYTES (BEAKER) (test code = 765) 1+ few SICKLE CELLS (BEAKER) (test code = 767) 1+ few PLATELET CONCENTRATION (CELLAVISION)(BEAKER) Adequate (test code = 3438) Received comment: User comments: Slide comments:[id number] 07:28:00 Test Item Value Reference Range Comments FERRITIN (BEAKER) (test code = 361) [address] ng/mL 5-275 BASIC METABOLIC [id number] 06:25:00 Test Item Value Reference Range Comments SODIUM (BEAKER) (test 139 meq/L 136-145 code = 381) POTASSIUM (BEAKER) (test 3.9 meq/L 3.5-5.1 code = 379) CHLORIDE (BEAKER) (test 103 meq/L 98-107 code = 382) CO2 (BEAKER) (test code = 30 meq/L 22-29 355) BLOOD UREA NITROGEN 15 mg/dL 7-21 (BEAKER) (test code = 354) CREATININE (BEAKER) (test 0.63 mg/dL 0.57-1.25 code = 358) GLUCOSE RANDOM (BEAKER) 106 mg/dL 70-105 (test code = 652) CALCIUM (BEAKER) (test 8.4 mg/dL 8.4-10.2 code = 697) EGFR (BEAKER) (test code 128 mL/min/1.73 sq m ES TIMATED GFR IS NOT = 1092) ACCURATE CREA TININE CLEARANCE IN PRE DICTING GLOMERULAR FILTR ATION RATE. ESTIMATED GFR IS NOT APPLICABLE F OR DIALYSIS PATIENT S. Specimen slightly ictericCBC W/PLT COUNT & AUTO [id number] 10:00:00 Test Item Value Reference Range Comments WHITE BLOOD CELL COUNT (BEAKER) (test code = 14.6 K/ L 3.5 -10.5 775) RED BLOOD CELL COUNT (BEAKER) (test code = 761) 2.25 M/ L 3.93-5.22 HEMOGLOBIN (BEAKER) (test code = 410) 7.2 GM/DL 11.2-15.7 HEMATOCRIT (BEAKER) (test code = 411) 21.8 % 34.1-44.9 MEAN CORPUSCULAR VOLUME (BEAKER) (test code = 96.9 fL 79 .4-94.8 753) MEAN CORPUSCULAR HEMOGLOBIN (BEAKER) (test code 32.0 pg 25.6-32.2 = 751) MEAN CORPUSCULAR HEMOGLOBIN CONC (BEAKER) (test 33.0 GM/DL 32.2-35.5 code = 752) RED CELL DISTRIBUTION WIDTH (BEAKER) (test code 21.2 % 11.7-14.4 = 412) PLATELET COUNT (BEAKER) (test code = 756) 273 K/CU MM 150-45 0 MEAN PLATELET VOLUME (BEAKER) (test code = 754) 11.2 fL 9.4-12.3 NUCLEATED RED BLOOD CELLS (BEAKER) (test code = 2 /100 WBC 0-0 413) (CELLAVISION MANUAL DIFF)2018-09-30 10:00:00 Test Item Value Reference Range Comments NEUTROPHILS - REL (CELLAVISION)(BEAKER) (test 49 % code = 2816) LYMPHOCYTES - REL (CELLAVISION)(BEAKER) (test 33 % code = 2817) MONOCYTES - REL (CELLAVISION)(BEAKER) (test code 11 % = 2818) EOSINOPHILS - REL (CELLAVISION)(BEAKER) (test 6 % code = 2819) ATYPICAL LYMPHOCYTES - REL (CELLAVISION)(BEAKER) 1 % 0-0 (test code = 2829) NEUTROPHILS - ABS (CELLAVISION)(BEAKER) (test 7.15 K/ul 1. 56-6.13 code = 2830) LYMPHOCYTES - ABS (CELLAVISION)(BEAKER) (test 4.82 K/ul 1. 18-3.74 code = 2831) MONOCYTES - ABS (CELLAVISION)(BEAKER) (test code 1.61 K/uL 0.24-0.36 = 2832) EOSINOPHILS - ABS (CELLAVISION)(BEAKER) (test 0.88 K/uL 0. 04-0.36 code = 2834) ATYPICAL LYMPHOCYTES - ABS (CELLAVISION)(BEAKER) 0.15 K/uL 0.00-0.00 (test code = 7788) TOTAL COUNTED (BEAKER) (test code = 1351) 100 MANUAL NRBC PER 100 CELLS (BEAKER) (test code = 4 /100 WBC 0-0 1353) WBC MORPHOLOGY (BEAKER) (test code = 487) Normal PLT MORPHOLOGY (BEAKER) (test code = 486) Normal POLYCHROMATOPHILLIC RBCS(BEAKER) (test code = 2+ moderate 478) ANISOCYTOSIS (BEAKER) (test code = 961) 2+ moderate TARGET CELLS (BEAKER) (test code = 480) 2+ moderate SICKLE CELLS (BEAKER) (test code = 767) 1+ few ARTIFACT (CELLAVISION)(BEAKER) (test code = Present 3432) PLATELET CONCENTRATION (CELLAVISION)(BEAKER) Adequate (test code = 3438) Received comment: User comments: Slide comments:HEPATIC FUNCTION [id number] 05:37:00 Test Item Value Reference Range Comments TOTAL PROTEIN (BEAKER) (test code = 770) 7.9 gm/dL 6.0-8.3 ALBUMIN (BEAKER) (test code = 1145) 3.2 g/dL 3.5-5.0 BILIRUBIN TOTAL (BEAKER) (test code = 377) 2.5 mg/dL 0.2-1 .2 BILIRUBIN DIRECT (BEAKER) (test code = 706) 1.2 mg/dL 0.1- 0.5 ALKALINE PHOSPHATASE (BEAKER) (test code = 346) 183 U/L 40-150 AST (SGOT) (BEAKER) (test code = 353) 129 U/L 5-34 ALT (SGPT) (BEAKER) (test code = 347) 72 U/L 6-55 COMPREHENSIVE METABOLIC [id number] 05:37:00 Test Item Value Reference Range Comments TOTAL PROTEIN (BEAKER) 7.9 gm/dL 6.0-8.3 (test code = 770) ALBUMIN (BEAKER) (test 3.2 g/dL 3.5-5.0 code = 1145) ALKALINE PHOSPHATASE 183 U/L 40-150 (BEAKER) (test code = 346) BILIRUBIN TOTAL (BEAKER) 2.5 mg/dL 0.2-1.2 (test code = 377) SODIUM (BEAKER) (test code 141 meq/L 136-145 = 381) POTASSIUM (BEAKER) (test 3.8 meq/L 3.5-5.1 code = 379) CHLORIDE (BEAKER) (test 104 meq/L 98-107 code = 382) CO2 (BEAKER) (test code = 28 meq/L 22-29 355) BLOOD UREA NITROGEN 12 mg/dL 7-21 (BEAKER) (test code = 354) CREATININE (BEAKER) (test 0.69 mg/dL 0.57-1.25 code = 358) GLUCOSE RANDOM (BEAKER) 97 mg/dL 70-105 (test code = 652) CALCIUM (BEAKER) (test 8.4 mg/dL 8.4-10.2 code = 697) AST (SGOT) (BEAKER) (test 129 U/L 5-34 code = 353) ALT (SGPT) (BEAKER) (test 72 U/L 6-55 code = 347) EGFR (BEAKER) (test code = 115 mL/min/1.73 sq ES TIMATED GFR IS NOT 1092) m ACCURATE CREA TININE CLEARANCE IN PRE DICTING GLOMERULAR FILTR ATION RATE. ESTIMATED GFR IS NOT APPLICABLE F OR DIALYSIS PATIENT S. CBC W/PLT COUNT & AUTO [id number] 11:21:00 Test Item Value Reference Range Comments WHITE BLOOD CELL COUNT (BEAKER) 15.6 K/ L 3.5-10.5 (test code = 775) RED BLOOD CELL COUNT (BEAKER) 2.42 M/ L 3.93-5.22 (test code = 761) HEMOGLOBIN (BEAKER) (test code 7.7 GM/DL 11.2-15.7 = 410) HEMATOCRIT (BEAKER) (test code 23.7 % 34.1-44.9 = 411) MEAN CORPUSCULAR VOLUME 97.9 fL 79.4-94.8 PATIENT HAD TWO UNITS (BEAKER) (test code = 753) LRBC' S [id number] MEAN CORPUSCULAR HEMOGLOBIN 31.8 pg 25.6-32.2 (BEAKER) (test code = 751) MEAN CORPUSCULAR HEMOGLOBIN 32.5 GM/DL 32.2-35.5 CONC (BEAKER) (test code = 752) RED CELL DISTRIBUTION WIDTH 21.2 % 11.7-14.4 (BEAKER) (test code = 412) PLATELET COUNT (BEAKER) (test 263 K/CU MM 150-450 code = 756) MEAN PLATELET VOLUME (BEAKER) 11.7 fL 9.4-12.3 (test code = 754) NUCLEATED RED BLOOD CELLS 3 /100 WBC 0-0 (BEAKER) (test code = 413) (CELLAVISION MANUAL DIFF)2018-09-29 11:21:00 Test Item Value Reference Range Comments NEUTROPHILS - REL (CELLAVISION)(BEAKER) (test 42 % code = 2816) LYMPHOCYTES - REL (CELLAVISION)(BEAKER) (test 29 % code = 2817) MONOCYTES - REL (CELLAVISION)(BEAKER) (test code 11 % = 2818) EOSINOPHILS - REL (CELLAVISION)(BEAKER) (test 15 % code = 2819) BANDS - REL (CELLAVISION)(BEAKER) (test code = 1 % 0 -10 2826) ATYPICAL LYMPHOCYTES - REL (CELLAVISION)(BEAKER) 1 % 0-0 (test code = 2829) NEUTROPHILS - ABS (CELLAVISION)(BEAKER) (test 6.55 K/ul 1. 56-6.13 code = 2830) LYMPHOCYTES - ABS (CELLAVISION)(BEAKER) (test 4.52 K/ul 1. 18-3.74 code = 2831) MONOCYTES - ABS (CELLAVISION)(BEAKER) (test code 1.72 K/uL 0.24-0.36 = 2832) EOSINOPHILS - ABS (CELLAVISION)(BEAKER) (test 2.34 K/uL 0. 04-0.36 code = 2834) BANDS - ABS (CELLAVISION)(BEAKER) (test code = 0.16 K/uL 0 .00-0.80 2840) ATYPICAL LYMPHOCYTES - ABS (CELLAVISION)(BEAKER) 0.16 K/uL 0.00-0.00 (test code = 2858) TOTAL COUNTED (BEAKER) (test code = 1351) 100 MANUAL NRBC PER 100 CELLS (BEAKER) (test code = 3 /100 WBC 0-0 1353) SMUDGE CELLS (BEAKER) (test code = 1371) Present GIANT PLATELETS (BEAKER) (test code = 313) Present POLYCHROMATOPHILLIC RBCS(BEAKER) (test code = 3+ many 478) ANISOCYTOSIS (BEAKER) (test code = 961) 2+ moderate MACROCYTES (BEAKER) (test code = 964) 2+ moderate SCHISTOCYTES (BEAKER) (test code = 765) 1+ few SICKLE CELLS (BEAKER) (test code = 767) 1+ few MATTHIEU CELLS (BEAKER) (test code = 474) 1+ few PLATELET CONCENTRATION (CELLAVISION)(BEAKER) Adequate (test code = 3438) Received comment: User comments: Slide comments:BASIC METABOLIC [id number] 06:23:00 Test Item Value Reference Range Comments SODIUM (BEAKER) (test 135 meq/L 136-145 code = 381) POTASSIUM (BEAKER) (test 3.9 meq/L 3.5-5.1 code = 379) CHLORIDE (BEAKER) (test 103 meq/L 98-107 code = 382) CO2 (BEAKER) (test code = 23 meq/L 22-29 355) BLOOD UREA NITROGEN 9 mg/dL 7-21 (BEAKER) (test code = 354) CREATININE (BEAKER) (test 0.72 mg/dL 0.57-1.25 code = 358) GLUCOSE RANDOM (BEAKER) 93 mg/dL 70-105 (test code = 652) CALCIUM (BEAKER) (test 8.2 mg/dL 8.4-10.2 code = 697) EGFR (BEAKER) (test code 109 mL/min/1.73 sq m ES TIMATED GFR IS NOT = 1092) ACCURATE CREA TININE CLEARANCE IN PRE DICTING GLOMERULAR FILTR ATION RATE. ESTIMATED GFR IS NOT APPLICABLE F OR DIALYSIS PATIENT S. Specimen slightly ictericHEPATIC FUNCTION [id number] 06:23:00 Test Item Value Reference Range Comments TOTAL PROTEIN (BEAKER) (test code = 770) 8.5 gm/dL 6.0-8.3 ALBUMIN (BEAKER) (test code = 1145) 3.5 g/dL 3.5-5.0 BILIRUBIN TOTAL (BEAKER) (test code = 377) 2.5 mg/dL 0.2-1 .2 BILIRUBIN DIRECT (BEAKER) (test code = 706) 1.2 mg/dL 0.1- 0.5 ALKALINE PHOSPHATASE (BEAKER) (test code = 346) 155 U/L 40-150 AST (SGOT) (BEAKER) (test code = 353) 123 U/L 5-34 ALT (SGPT) (BEAKER) (test code = 347) 69 U/L 6-55 Specimen slightly ictericBASIC METABOLIC [id number] 08:14:00 Test Item Value Reference Range Comments SODIUM (BEAKER) (test 138 meq/L 136-145 code = 381) POTASSIUM (BEAKER) (test 3.8 meq/L 3.5-5.1 code = 379) CHLORIDE (BEAKER) (test 108 meq/L 98-107 code = 382) CO2 (BEAKER) (test code = 21 meq/L 22-29 355) BLOOD UREA NITROGEN 12 mg/dL 7-21 (BEAKER) (test code = 354) CREATININE (BEAKER) (test 0.79 mg/dL 0.57-1.25 code = 358) GLUCOSE RANDOM (BEAKER) 114 mg/dL 70-105 (test code = 652) CALCIUM (BEAKER) (test 8.4 mg/dL 8.4-10.2 code = 697) EGFR (BEAKER) (test code 98 mL/min/1.73 sq m EST IMATED GFR IS NOT = 1092) ACCURATE CREA TININE CLEARANCE IN PRE DICTING GLOMERULAR FILTR ATION RATE. ESTIMATED GFR IS NOT APPLICABLE F OR DIALYSIS PATIENT S. Specimen slightly ictericHEPATIC FUNCTION [id number] 08:14:00 Test Item Value Reference Range Comments TOTAL PROTEIN (BEAKER) (test code = 770) 8.1 gm/dL 6.0-8.3 ALBUMIN (BEAKER) (test code = 1145) 3.2 g/dL 3.5-5.0 BILIRUBIN TOTAL (BEAKER) (test code = 377) 2.5 mg/dL 0.2-1 .2 BILIRUBIN DIRECT (BEAKER) (test code = 706) 1.1 mg/dL 0.1- 0.5 ALKALINE PHOSPHATASE (BEAKER) (test code = 346) 152 U/L 40-150 AST (SGOT) (BEAKER) (test code = 353) 118 U/L 5-34 ALT (SGPT) (BEAKER) (test code = 347) 65 U/L 6-55 Specimen slightly ictericSpecimen slightly lipemic(CELLAVISION MANUAL DIFF) 2018-09-28 02:39:00 Test Item Value Reference Range Comments NEUTROPHILS - REL (CELLAVISION)(BEAKER) (test 52 % code = 2816) LYMPHOCYTES - REL (CELLAVISION)(BEAKER) (test 26 % code = 2817) MONOCYTES - REL (CELLAVISION)(BEAKER) (test code 8 % = 2818) EOSINOPHILS - REL (CELLAVISION)(BEAKER) (test 12 % code = 2819) BASOPHILS - REL (CELLAVISION)(BEAKER) (test code 2 % = 2820) NEUTROPHILS - ABS (CELLAVISION)(BEAKER) (test 8.37 K/ul 1. 56-6.13 code = 2830) LYMPHOCYTES - ABS (CELLAVISION)(BEAKER) (test 4.19 K/ul 1. 18-3.74 code = 2831) MONOCYTES - ABS (CELLAVISION)(BEAKER) (test code 1.29 K/uL 0.24-0.36 = 2832) EOSINOPHILS - ABS (CELLAVISION)(BEAKER) (test 1.93 K/uL 0. 04-0.36 code = 2834) BASOPHILS - ABS (CELLAVISION)(BEAKER) (test code 0.32 K/uL 0.01-0.08 = 2835) TOTAL COUNTED (BEAKER) (test code = 1351) 100 MANUAL NRBC PER 100 CELLS (BEAKER) (test code = 11 /100 WBC 0-0 1353) SMUDGE CELLS (BEAKER) (test code = 1371) Present GIANT PLATELETS (BEAKER) (test code = 313) Present POLYCHROMATOPHILLIC RBCS(BEAKER) (test code = 3+ many 478) ANISOCYTOSIS (BEAKER) (test code = 961) 3+ many MACROCYTES (BEAKER) (test code = 964) 3+ many POIKILOCYTES (BEAKER) (test code = 966) 2+ moderate TARGET CELLS (BEAKER) (test code = 480) 2+ moderate SCHISTOCYTES (BEAKER) (test code = 765) 1+ few SICKLE CELLS (BEAKER) (test code = 767) 1+ few ELLIPTOCYTES (BEAKER) (test code = 962) 1+ few STOMATOCYTES (BEAKER) (test code = 479) 2+ moderate MATTHEWS-JOLLY BODIES (BEAKER) (test code = 475) 1+ few PLATELET CONCENTRATION (CELLAVISION)(BEAKER) Adequate (test code = 3438) Received comment: User comments: Slide comments:CBC W/PLT COUNT & AUTO [id number] 02:38:00 Test Item Value Reference Range Comments WHITE BLOOD CELL COUNT (BEAKER) (test code = 16.1 K/ L 3.5 -10.5 775) RED BLOOD CELL COUNT (BEAKER) (test code = 761) 1.44 M/ L 3.93-5.22 HEMOGLOBIN (BEAKER) (test code = 410) 5.0 GM/DL 11.2-15.7 HEMATOCRIT (BEAKER) (test code = 411) 15.7 % 34.1-44.9 MEAN CORPUSCULAR VOLUME (BEAKER) (test code = 109.0 fL 79 .4-94.8 753) MEAN CORPUSCULAR HEMOGLOBIN (BEAKER) (test code 34.7 pg 25.6-32.2 = 751) MEAN CORPUSCULAR HEMOGLOBIN CONC (BEAKER) (test 31.8 GM/DL 32.2-35.5 code = 752) RED CELL DISTRIBUTION WIDTH (BEAKER) (test code 23.2 % 11.7-14.4 = 412) PLATELET COUNT (BEAKER) (test code = 756) 220 K/CU MM 150-45 0 MEAN PLATELET VOLUME (BEAKER) (test code = 754) 11.2 fL 9.4-12.3 NUCLEATED RED BLOOD CELLS (BEAKER) (test code = 9 /100 WBC 0-0 413) CBC W/PLT COUNT & AUTO [id number] 12:02:00 Test Item Value Reference Range Comments WHITE BLOOD CELL COUNT (BEAKER) (test code = 14.3 K/ L 3.5 -10.5 775) RED BLOOD CELL COUNT (BEAKER) (test code = 761) 2.54 M/ L 3.93-5.22 HEMOGLOBIN (BEAKER) (test code = 410) 7.3 GM/DL 11.2-15.7 HEMATOCRIT (BEAKER) (test code = 411) 23.4 % 34.1-44.9 MEAN CORPUSCULAR VOLUME (BEAKER) (test code = 92.1 fL 79 .4-94.8 753) MEAN CORPUSCULAR HEMOGLOBIN (BEAKER) (test code 28.7 pg 25.6-32.2 = 751) MEAN CORPUSCULAR HEMOGLOBIN CONC (BEAKER) (test 31.2 GM/DL 32.2-35.5 code = 752) RED CELL DISTRIBUTION WIDTH (BEAKER) (test code 21.4 % 11.7-14.4 = 412) PLATELET COUNT (BEAKER) (test code = 756) 239 K/CU MM 150-45 0 MEAN PLATELET VOLUME (BEAKER) (test code = 754) 11.0 fL 9.4-12.3 NUCLEATED RED BLOOD CELLS (BEAKER) (test code = 4 /100 WBC 0-0 413) (CELLAVISION MANUAL DIFF)2018-02-08 12:02:00 Test Item Value Reference Range Comments NEUTROPHILS - REL (CELLAVISION)(BEAKER) (test 66 % code = 2816) LYMPHOCYTES - REL (CELLAVISION)(BEAKER) (test 22 % code = 2817) MONOCYTES - REL (CELLAVISION)(BEAKER) (test code 8 % = 2818) EOSINOPHILS - REL (CELLAVISION)(BEAKER) (test 3 % code = 2819) NEUTROPHILS - ABS (CELLAVISION)(BEAKER) (test 9.44 K/ul 1. 56-6.13 code = 2830) LYMPHOCYTES - ABS (CELLAVISION)(BEAKER) (test 3.15 K/ul 1. 18-3.74 code = 2831) MONOCYTES - ABS (CELLAVISION)(BEAKER) (test code 1.14 K/uL 0.24-0.36 = 2832) EOSINOPHILS - ABS (CELLAVISION)(BEAKER) (test 0.43 K/uL 0. 04-0.36 code = 2834) TOTAL COUNTED (BEAKER) (test code = 1351) 100 MANUAL NRBC PER 100 CELLS (BEAKER) (test code = 5 /100 WBC 0-0 1353) WBC MORPHOLOGY (BEAKER) (test code = 487) Normal PLT MORPHOLOGY (BEAKER) (test code = 486) Normal ANISOCYTOSIS (BEAKER) (test code = 961) 2+ moderate MACROCYTES (BEAKER) (test code = 964) 1+ few TARGET CELLS (BEAKER) (test code = 480) 1+ few SICKLE CELLS (BEAKER) (test code = 767) 1+ few MATTHEWS-JOLLY BODIES (BEAKER) (test code = 475) 1+ few ARTIFACT (CELLAVISION)(BEAKER) (test code = Present 3432) PLATELET CONCENTRATION (CELLAVISION)(BEAKER) Adequate (test code = 3438) Received comment: User comments: Slide comments:BASIC METABOLIC [id number] 06:09:00 Test Item Value Reference Range Comments SODIUM (BEAKER) (test 138 meq/L 136-145 code = 381) POTASSIUM (BEAKER) (test 5.9 meq/L 3.5-5.1 code = 379) CHLORIDE (BEAKER) (test 102 meq/L 98-107 code = 382) CO2 (BEAKER) (test code = 30 meq/L 22-29 355) BLOOD UREA NITROGEN 15 mg/dL 7-21 (BEAKER) (test code = 354) CREATININE (BEAKER) (test 0.68 mg/dL 0.57-1.25 code = 358) GLUCOSE RANDOM (BEAKER) 87 mg/dL 70-105 (test code = 652) CALCIUM (BEAKER) (test 9.6 mg/dL 8.4-10.2 code = 697) EGFR (BEAKER) (test code 117 mL/min/1.73 sq m ES TIMATED GFR IS NOT = 1092) ACCURATE CREA TININE CLEARANCE IN PRE DICTING GLOMERULAR FILTR ATION RATE. ESTIMATED GFR IS NOT APPLICABLE F OR DIALYSIS PATIENT S. (CELLAVISION MANUAL DIFF)2018-02-07 13:34:00 Test Item Value Reference Range Comments NEUTROPHILS - REL (CELLAVISION)(BEAKER) (test 68 % code = 2816) LYMPHOCYTES - REL (CELLAVISION)(BEAKER) (test 24 % code = 2817) MONOCYTES - REL (CELLAVISION)(BEAKER) (test code 7 % = 2818) EOSINOPHILS - REL (CELLAVISION)(BEAKER) (test 1 % code = 2819) NEUTROPHILS - ABS (CELLAVISION)(BEAKER) (test 9.66 K/ul 1. 56-6.13 code = 2830) LYMPHOCYTES - ABS (CELLAVISION)(BEAKER) (test 3.41 K/ul 1. 18-3.74 code = 2831) MONOCYTES - ABS (CELLAVISION)(BEAKER) (test code 0.99 K/uL 0.24-0.36 = 2832) EOSINOPHILS - ABS (CELLAVISION)(BEAKER) (test 0.14 K/uL 0. 04-0.36 code = 2834) TOTAL COUNTED (BEAKER) (test code = 1351) 100 MANUAL NRBC PER 100 CELLS (BEAKER) (test code = 15 /100 WBC 0-0 1353) WBC MORPHOLOGY (BEAKER) (test code = 487) Normal LARGE PLT(BEAKER) (test code = 2156) Present POLYCHROMATOPHILLIC RBCS(BEAKER) (test code = 2+ moderate 478) HYPOCHROMIA (BEAKER) (test code = 963) 1+ few TARGET CELLS (BEAKER) (test code = 480) 2+ moderate SICKLE CELLS (BEAKER) (test code = 767) 1+ few MATTHEWS-JOLLY BODIES (BEAKER) (test code = 475) 1+ few ARTIFACT (CELLAVISION)(BEAKER) (test code = Present 3432) PLATELET CONCENTRATION (CELLAVISION)(BEAKER) Adequate (test code = 3438) Received comment: User comments: Slide comments:CBC W/PLT COUNT & AUTO [id number] 13:33:00 Test Item Value Reference Range Comments WHITE BLOOD CELL COUNT (BEAKER) (test code = 14.2 K/ L 3.5 -10.5 775) RED BLOOD CELL COUNT (BEAKER) (test code = 761) 2.68 M/ L 3.93-5.22 HEMOGLOBIN (BEAKER) (test code = 410) 7.7 GM/DL 11.2-15.7 HEMATOCRIT (BEAKER) (test code = 411) 24.5 % 34.1-44.9 MEAN CORPUSCULAR VOLUME (BEAKER) (test code = 91.4 fL 79 .4-94.8 753) MEAN CORPUSCULAR HEMOGLOBIN (BEAKER) (test code 28.7 pg 25.6-32.2 = 751) MEAN CORPUSCULAR HEMOGLOBIN CONC (BEAKER) (test 31.4 GM/DL 32.2-35.5 code = 752) RED CELL DISTRIBUTION WIDTH (BEAKER) (test code 21.2 % 11.7-14.4 = 412) PLATELET COUNT (BEAKER) (test code = 756) 257 K/CU MM 150-45 0 MEAN PLATELET VOLUME (BEAKER) (test code = 754) 11.4 fL 9.4-12.3 NUCLEATED RED BLOOD CELLS (BEAKER) (test code = 6 /100 WBC 0-0 413) BASIC METABOLIC [id number] 07:19:00 Test Item Value Reference Range Comments SODIUM (BEAKER) (test 138 meq/L 136-145 code = 381) POTASSIUM (BEAKER) (test 5.3 meq/L 3.5-5.1 code = 379) CHLORIDE (BEAKER) (test 98 meq/L 98-107 code = 382) CO2 (BEAKER) (test code = 34 meq/L 22-29 355) BLOOD UREA NITROGEN 16 mg/dL 7-21 (BEAKER) (test code = 354) CREATININE (BEAKER) (test 0.66 mg/dL 0.57-1.25 code = 358) GLUCOSE RANDOM (BEAKER) 90 mg/dL 70-105 (test code = 652) CALCIUM (BEAKER) (test 9.8 mg/dL 8.4-10.2 code = 697) EGFR (BEAKER) (test code 121 mL/min/1.73 sq m ES TIMATED GFR IS NOT = 1092) ACCURATE CREA TININE CLEARANCE IN PRE DICTING GLOMERULAR FILTR ATION RATE. ESTIMATED GFR IS NOT APPLICABLE F OR DIALYSIS PATIENT S. CBC W/PLT COUNT & AUTO [id number] 14:36:00 Test Item Value Reference Range Comments WHITE BLOOD CELL COUNT (BEAKER) (test code = 12.9 K/ L 3.5 -10.5 775) RED BLOOD CELL COUNT (BEAKER) (test code = 761) 2.54 M/ L 3.93-5.22 HEMOGLOBIN (BEAKER) (test code = 410) 7.4 GM/DL 11.2-15.7 HEMATOCRIT (BEAKER) (test code = 411) 22.9 % 34.1-44.9 MEAN CORPUSCULAR VOLUME (BEAKER) (test code = 90.2 fL 79 .4-94.8 753) MEAN CORPUSCULAR HEMOGLOBIN (BEAKER) (test code 29.1 pg 25.6-32.2 = 751) MEAN CORPUSCULAR HEMOGLOBIN CONC (BEAKER) (test 32.3 GM/DL 32.2-35.5 code = 752) RED CELL DISTRIBUTION WIDTH (BEAKER) (test code 21.2 % 11.7-14.4 = 412) PLATELET COUNT (BEAKER) (test code = 756) 251 K/CU MM 150-45 0 MEAN PLATELET VOLUME (BEAKER) (test code = 754) 10.8 fL 9.4-12.3 NUCLEATED RED BLOOD CELLS (BEAKER) (test code = 7 /100 WBC 0-0 413) (MANUAL DIFFERENTIAL)2018-02-06 14:36:00 Test Item Value Reference Range Comments NEUTROPHILS - REL (DIFF) (BEAKER) (test code = 64 % 1359) LYMPHOCYTES - REL (DIFF) (BEAKER) (test code = 22 % 1360) MONOCYTES - REL (DIFF) (BEAKER) (test code = 8 % 1361) EOSINOPHILS - REL (DIFF) (BEAKER) (test code = 6 % 1362) BASOPHILS - REL (DIFF) (BEAKER) (test code = 0 % 1363) NEUTROPHILS - ABS (DIFF) (BEAKER) (test code = 8.26 K/ L 1 .80-8.00 1365) LYMPHOCYTES - ABS (DIFF) (BEAKER) (test code = 2.84 K/ L 1 .48-4.50 1366) MONOCYTES - ABS (DIFF) (BEAKER) (test code = 1.03 K/ L 0.0 0-1.30 1367) EOSINOPHILS - ABS (DIFF) (BEAKER) (test code = 0.77 K/ L 0 .00-0.50 1368) BASOPHILS - ABS (DIFF) (BEAKER) (test code = 0.00 K/ L 0.0 0-0.20 1369) TOTAL COUNTED (BEAKER) (test code = 1351) 100 MANUAL NRBC PER 100 CELLS (BEAKER) (test code = 8 /100 WBC 0-0 1353) WBC MORPHOLOGY (BEAKER) (test code = 487) Normal PLT MORPHOLOGY (BEAKER) (test code = 486) Normal ANISOCYTOSIS (BEAKER) (test code = 961) 2+ moderate SICKLE CELLS (BEAKER) (test code = 767) 2+ moderate BASIC METABOLIC [id number] 06:59:00 Test Item Value Reference Range Comments SODIUM (BEAKER) (test 139 meq/L 136-145 code = 381) POTASSIUM (BEAKER) (test 4.9 meq/L 3.5-5.1 code = 379) CHLORIDE (BEAKER) (test 100 meq/L 98-107 code = 382) CO2 (BEAKER) (test code = 34 meq/L 22-29 355) BLOOD UREA NITROGEN 18 mg/dL 7-21 (BEAKER) (test code = 354) CREATININE (BEAKER) (test 0.70 mg/dL 0.57-1.25 code = 358) GLUCOSE RANDOM (BEAKER) 102 mg/dL 70-105 (test code = 652) CALCIUM (BEAKER) (test 9.8 mg/dL 8.4-10.2 code = 697) EGFR (BEAKER) (test code 114 mL/min/1.73 sq m ES TIMATED GFR IS NOT = 1092) ACCURATE CREA TININE CLEARANCE IN PRE DICTING GLOMERULAR FILTR ATION RATE. ESTIMATED GFR IS NOT APPLICABLE F OR DIALYSIS PATIENT S. CBC W/PLT COUNT & AUTO [id number] 12:27:00 Test Item Value Reference Range Comments WHITE BLOOD CELL COUNT (BEAKER) (test code = 14.2 K/ L 3.5 -10.5 775) RED BLOOD CELL COUNT (BEAKER) (test code = 761) 2.55 M/ L 3.93-5.22 HEMOGLOBIN (BEAKER) (test code = 410) 7.2 GM/DL 11.2-15.7 HEMATOCRIT (BEAKER) (test code = 411) 22.9 % 34.1-44.9 MEAN CORPUSCULAR VOLUME (BEAKER) (test code = 89.8 fL 79 .4-94.8 753) MEAN CORPUSCULAR HEMOGLOBIN (BEAKER) (test code 28.2 pg 25.6-32.2 = 751) MEAN CORPUSCULAR HEMOGLOBIN CONC (BEAKER) (test 31.4 GM/DL 32.2-35.5 code = 752) RED CELL DISTRIBUTION WIDTH (BEAKER) (test code 20.7 % 11.7-14.4 = 412) PLATELET COUNT (BEAKER) (test code = 756) 261 K/CU MM 150-45 0 MEAN PLATELET VOLUME (BEAKER) (test code = 754) 10.7 fL 9.4-12.3 NUCLEATED RED BLOOD CELLS (BEAKER) (test code = 5 /100 WBC 0-0 413) (CELLAVISION MANUAL DIFF)2018-02-05 12:27:00 Test Item Value Reference Range Comments NEUTROPHILS - REL (CELLAVISION)(BEAKER) (test 67 % code = 2816) LYMPHOCYTES - REL (CELLAVISION)(BEAKER) (test 17 % code = 2817) MONOCYTES - REL (CELLAVISION)(BEAKER) (test code 6 % = 2818) EOSINOPHILS - REL (CELLAVISION)(BEAKER) (test 4 % code = 2819) PROMYELOCYTES - REL (CELLAVSION)(BEAKER) (test 5 % 0 -0 code = 2825) ATYPICAL LYMPHOCYTES - REL (CELLAVISION)(BEAKER) 1 % 0-0 (test code = 2829) NEUTROPHILS - ABS (CELLAVISION)(BEAKER) (test 9.51 K/ul 1. 56-6.13 code = 2830) LYMPHOCYTES - ABS (CELLAVISION)(BEAKER) (test 2.41 K/ul 1. 18-3.74 code = 2831) MONOCYTES - ABS (CELLAVISION)(BEAKER) (test code 0.85 K/uL 0.24-0.36 = 2832) EOSINOPHILS - ABS (CELLAVISION)(BEAKER) (test 0.57 K/uL 0. 04-0.36 code = 2834) PROMYELOCYTES - ABS (CELLAVISION)(BEAKER) (test 0.71 K/uL 0.00-0.00 code = 2838) ATYPICAL LYMPHOCYTES - ABS (CELLAVISION)(BEAKER) 0.14 K/uL 0.00-0.00 (test code = 2858) TOTAL COUNTED (BEAKER) (test code = 1351) 100 MANUAL NRBC PER 100 CELLS (BEAKER) (test code = 9 /100 WBC 0-0 1353) WBC MORPHOLOGY (BEAKER) (test code = 487) Normal LARGE PLT(BEAKER) (test code = 2156) Present POLYCHROMATOPHILLIC RBCS(BEAKER) (test code = 2+ moderate 478) HYPOCHROMIA (BEAKER) (test code = 963) 1+ few TARGET CELLS (BEAKER) (test code = 480) 2+ moderate SICKLE CELLS (BEAKER) (test code = 767) 2+ moderate ARTIFACT (CELLAVISION)(BEAKER) (test code = Present 3432) PLATELET CONCENTRATION (CELLAVISION)(BEAKER) Adequate (test code = 3438) Received comment: User comments: Slide comments:BASIC METABOLIC [id number] 07:44:00 Test Item Value Reference Range Comments SODIUM (BEAKER) (test 139 meq/L 136-145 code = 381) POTASSIUM (BEAKER) (test 4.7 meq/L 3.5-5.1 code = 379) CHLORIDE (BEAKER) (test 100 meq/L 98-107 code = 382) CO2 (BEAKER) (test code = 31 meq/L 22-29 355) BLOOD UREA NITROGEN 14 mg/dL 7-21 (BEAKER) (test code = 354) CREATININE (BEAKER) (test 0.69 mg/dL 0.57-1.25 code = 358) GLUCOSE RANDOM (BEAKER) 92 mg/dL 70-105 (test code = 652) CALCIUM (BEAKER) (test 9.8 mg/dL 8.4-10.2 code = 697) EGFR (BEAKER) (test code 115 mL/min/1.73 sq m ES TIMATED GFR IS NOT = 1092) ACCURATE CREA TININE CLEARANCE IN PRE DICTING GLOMERULAR FILTR ATION RATE. ESTIMATED GFR IS NOT APPLICABLE F OR DIALYSIS PATIENT S. CBC W/PLT COUNT & AUTO [id number] 13:29:00 Test Item Value Reference Range Comments WHITE BLOOD CELL COUNT (BEAKER) (test code = 17.1 K/ L 3.5 -10.5 775) RED BLOOD CELL COUNT (BEAKER) (test code = 761) 2.68 M/ L 3.93-5.22 HEMOGLOBIN (BEAKER) (test code = 410) 7.6 GM/DL 11.2-15.7 HEMATOCRIT (BEAKER) (test code = 411) 23.3 % 34.1-44.9 MEAN CORPUSCULAR VOLUME (BEAKER) (test code = 86.9 fL 79 .4-94.8 753) MEAN CORPUSCULAR HEMOGLOBIN (BEAKER) (test code 28.4 pg 25.6-32.2 = 751) MEAN CORPUSCULAR HEMOGLOBIN CONC (BEAKER) (test 32.6 GM/DL 32.2-35.5 code = 752) RED CELL DISTRIBUTION WIDTH (BEAKER) (test code 20.0 % 11.7-14.4 = 412) PLATELET COUNT (BEAKER) (test code = 756) 252 K/CU MM 150-45 0 MEAN PLATELET VOLUME (BEAKER) (test code = 754) 10.9 fL 9.4-12.3 NUCLEATED RED BLOOD CELLS (BEAKER) (test code = 4 /100 WBC 0-0 413) (CELLAVISION MANUAL DIFF)2018-02-04 13:29:00 Test Item Value Reference Range Comments NEUTROPHILS - REL (CELLAVISION)(BEAKER) (test 61 % code = 2816) LYMPHOCYTES - REL (CELLAVISION)(BEAKER) (test 29 % code = 2817) MONOCYTES - REL (CELLAVISION)(BEAKER) (test code 7 % = 2818) EOSINOPHILS - REL (CELLAVISION)(BEAKER) (test 1 % code = 2819) BANDS - REL (CELLAVISION)(BEAKER) (test code = 2 % 0 -10 9956) NEUTROPHILS - ABS (CELLAVISION)(BEAKER) (test 10.43 K/ul 1. 56-6.13 code = 2830) LYMPHOCYTES - ABS (CELLAVISION)(BEAKER) (test 4.96 K/ul 1. 18-3.74 code = 2831) MONOCYTES - ABS (CELLAVISION)(BEAKER) (test code 1.20 K/uL 0.24-0.36 = 2832) EOSINOPHILS - ABS (CELLAVISION)(BEAKER) (test 0.17 K/uL 0. 04-0.36 code = 2834) BANDS - ABS (CELLAVISION)(BEAKER) (test code = 0.34 K/uL 0 .00-0.80 2840) TOTAL COUNTED (BEAKER) (test code = 1351) 100 MANUAL NRBC PER 100 CELLS (BEAKER) (test code = 3 /100 WBC 0-0 1353) SMUDGE CELLS (BEAKER) (test code = 1371) Present GIANT PLATELETS (BEAKER) (test code = 313) Present POLYCHROMATOPHILLIC RBCS(BEAKER) (test code = 3+ many 478) ANISOCYTOSIS (BEAKER) (test code = 961) 2+ moderate MICROCYTES (BEAKER) (test code = 965) 1+ few POIKILOCYTES (BEAKER) (test code = 966) 2+ moderate TARGET CELLS (BEAKER) (test code = 480) 2+ moderate SICKLE CELLS (BEAKER) (test code = 767) 2+ moderate ARTIFACT (CELLAVISION)(BEAKER) (test code = Present 3432) HELMET CELLS (CELLAVISION)(BEAKER) (test code = 1+ few 3434) PLATELET CONCENTRATION (CELLAVISION)(BEAKER) Adequate (test code = 3438) Received comment: User comments: Slide comments:BASIC METABOLIC [id number] 05:38:00 Test Item Value Reference Range Comments SODIUM (BEAKER) (test 140 meq/L 136-145 code = 381) POTASSIUM (BEAKER) (test 4.6 meq/L 3.5-5.1 code = 379) CHLORIDE (BEAKER) (test 104 meq/L 98-107 code = 382) CO2 (BEAKER) (test code = 28 meq/L 22-29 355) BLOOD UREA NITROGEN 18 mg/dL 7-21 (BEAKER) (test code = 354) CREATININE (BEAKER) (test 0.66 mg/dL 0.57-1.25 code = 358) GLUCOSE RANDOM (BEAKER) 100 mg/dL 70-105 (test code = 652) CALCIUM (BEAKER) (test 9.5 mg/dL 8.4-10.2 code = 697) EGFR (BEAKER) (test code 121 mL/min/1.73 sq m ES TIMATED GFR IS NOT = 1092) ACCURATE CREA TININE CLEARANCE IN PRE DICTING GLOMERULAR FILTR ATION RATE. ESTIMATED GFR IS NOT APPLICABLE F OR DIALYSIS PATIENT S. CBC W/PLT COUNT & AUTO [id number] 14:02:00 Test Item Value Reference Range Comments WHITE BLOOD CELL COUNT (BEAKER) (test code = 20.8 K/ L 3.5 -10.5 775) RED BLOOD CELL COUNT (BEAKER) (test code = 761) 1.97 M/ L 3.93-5.22 HEMOGLOBIN (BEAKER) (test code = 410) 5.9 GM/DL 11.2-15.7 HEMATOCRIT (BEAKER) (test code = 411) 17.6 % 34.1-44.9 MEAN CORPUSCULAR VOLUME (BEAKER) (test code = 89.3 fL 79 .4-94.8 753) MEAN CORPUSCULAR HEMOGLOBIN (BEAKER) (test code 29.9 pg 25.6-32.2 = 751) MEAN CORPUSCULAR HEMOGLOBIN CONC (BEAKER) (test 33.5 GM/DL 32.2-35.5 code = 752) RED CELL DISTRIBUTION WIDTH (BEAKER) (test code 21.8 % 11.7-14.4 = 412) PLATELET COUNT (BEAKER) (test code = 756) 290 K/CU MM 150-45 0 MEAN PLATELET VOLUME (BEAKER) (test code = 754) 10.7 fL 9.4-12.3 NUCLEATED RED BLOOD CELLS (BEAKER) (test code = 5 /100 WBC 0-0 413) NEUTROPHILS RELATIVE PERCENT (BEAKER) (test code 66 % = 429) LYMPHOCYTES RELATIVE PERCENT (BEAKER) (test code 23 % = 430) MONOCYTES RELATIVE PERCENT (BEAKER) (test code = 10 % 431) EOSINOPHILS RELATIVE PERCENT (BEAKER) (test code 1 % = 432) BASOPHILS RELATIVE PERCENT (BEAKER) (test code = 0 % 437) NEUTROPHILS ABSOLUTE COUNT (BEAKER) (test code = 13.73 K/ L 1.56-6.13 670) LYMPHOCYTES ABSOLUTE COUNT (BEAKER) (test code = 4.72 K/ L 1.18-3.74 414) MONOCYTES ABSOLUTE COUNT (BEAKER) (test code = 2.06 K/ L 0 .24-0.36 415) EOSINOPHILS ABSOLUTE COUNT (BEAKER) (test code = 0.20 K/ L 0.04-0.36 416) BASOPHILS ABSOLUTE COUNT (BEAKER) (test code = 0.03 K/ L 0 .01-0.08 417) IMMATURE GRANULOCYTES-RELATIVE PERCENT (BEAKER) 1 % 0-1 (test code = 2801) (CELLAVISION MANUAL DIFF)2018-02-03 14:02:00 Test Item Value Reference Range Comments TOTAL COUNTED (BEAKER) (test code = 1351) WBC MORPHOLOGY (BEAKER) (test code = 487) Normal PLT MORPHOLOGY (BEAKER) (test code = 486) Normal POLYCHROMATOPHILLIC RBCS(BEAKER) (test code = 2+ moderate 478) ANISOCYTOSIS (BEAKER) (test code = 961) 2+ moderate TARGET CELLS (BEAKER) (test code = 480) 2+ moderate SICKLE CELLS (BEAKER) (test code = 767) 2+ moderate BASIC METABOLIC [id number] 07:22:00 Test Item Value Reference Range Comments SODIUM (BEAKER) (test 140 meq/L 136-145 code = 381) POTASSIUM (BEAKER) (test 4.9 meq/L 3.5-5.1 code = 379) CHLORIDE (BEAKER) (test 105 meq/L 98-107 code = 382) CO2 (BEAKER) (test code = 29 meq/L 22-29 355) BLOOD UREA NITROGEN 20 mg/dL 7-21 (BEAKER) (test code = 354) CREATININE (BEAKER) (test 0.72 mg/dL 0.57-1.25 code = 358) GLUCOSE RANDOM (BEAKER) 100 mg/dL 70-105 (test code = 652) CALCIUM (BEAKER) (test 9.4 mg/dL 8.4-10.2 code = 697) EGFR (BEAKER) (test code 110 mL/min/1.73 sq m ES TIMATED GFR IS NOT = 1092) ACCURATE CREA TININE CLEARANCE IN PRE DICTING GLOMERULAR FILTR ATION RATE. ESTIMATED GFR IS NOT APPLICABLE F OR DIALYSIS PATIENT S. Specimen slightly ictericCBC W/PLT COUNT & AUTO [id number] 06:46:00 Test Item Value Reference Range Comments WHITE BLOOD CELL COUNT (BEAKER) (test code = 17.0 K/ L 3.5 -10.5 775) RED BLOOD CELL COUNT (BEAKER) (test code = 761) 2.18 M/ L 3.93-5.22 HEMOGLOBIN (BEAKER) (test code = 410) 6.4 GM/DL 11.2-15.7 HEMATOCRIT (BEAKER) (test code = 411) 20.3 % 34.1-44.9 MEAN CORPUSCULAR VOLUME (BEAKER) (test code = 93.1 fL 79 .4-94.8 753) MEAN CORPUSCULAR HEMOGLOBIN (BEAKER) (test code 29.4 pg 25.6-32.2 = 751) MEAN CORPUSCULAR HEMOGLOBIN CONC (BEAKER) (test 31.5 GM/DL 32.2-35.5 code = 752) RED CELL DISTRIBUTION WIDTH (BEAKER) (test code 24.0 % 11.7-14.4 = 412) PLATELET COUNT (BEAKER) (test code = 756) 274 K/CU MM 150-45 0 MEAN PLATELET VOLUME (BEAKER) (test code = 754) 10.9 fL 9.4-12.3 NUCLEATED RED BLOOD CELLS (BEAKER) (test code = 13 /100 WBC 0-0 413) (CELLAVISION MANUAL DIFF)2018-02-02 06:46:00 Test Item Value Reference Range Comments NEUTROPHILS - REL (CELLAVISION)(BEAKER) (test 72 % code = 2816) LYMPHOCYTES - REL (CELLAVISION)(BEAKER) (test 20 % code = 2817) MONOCYTES - REL (CELLAVISION)(BEAKER) (test code 6 % = 2818) EOSINOPHILS - REL (CELLAVISION)(BEAKER) (test 1 % code = 2819) BANDS - REL (CELLAVISION)(BEAKER) (test code = 1 % 0 -10 2826) NEUTROPHILS - ABS (CELLAVISION)(BEAKER) (test 12.24 K/ul 1. 56-6.13 code = 2830) LYMPHOCYTES - ABS (CELLAVISION)(BEAKER) (test 3.40 K/ul 1. 18-3.74 code = 2831) MONOCYTES - ABS (CELLAVISION)(BEAKER) (test code 1.02 K/uL 0.24-0.36 = 2832) EOSINOPHILS - ABS (CELLAVISION)(BEAKER) (test 0.17 K/uL 0. 04-0.36 code = 2834) BANDS - ABS (CELLAVISION)(BEAKER) (test code = 0.17 K/uL 0 .00-0.80 2840) TOTAL COUNTED (BEAKER) (test code = 1351) 100 MANUAL NRBC PER 100 CELLS (BEAKER) (test code = 30 /100 WBC 0-0 1353) WBC MORPHOLOGY (BEAKER) (test code = 487) Normal PLT MORPHOLOGY (BEAKER) (test code = 486) Normal POLYCHROMATOPHILLIC RBCS(BEAKER) (test code = 3+ many 478) ANISOCYTOSIS (BEAKER) (test code = 961) 2+ moderate MACROCYTES (BEAKER) (test code = 964) 2+ moderate TARGET CELLS (BEAKER) (test code = 480) 1+ few SICKLE CELLS (BEAKER) (test code = 767) 1+ few ARTIFACT (CELLAVISION)(BEAKER) (test code = Present 3432) PLATELET CONCENTRATION (CELLAVISION)(BEAKER) Adequate (test code = 3438) Received comment: User comments: Slide comments:BASIC METABOLIC [id number] 06:15:00 Test Item Value Reference Range Comments SODIUM (BEAKER) (test 139 meq/L 136-145 code = 381) POTASSIUM (BEAKER) (test 4.7 meq/L 3.5-5.1 code = 379) CHLORIDE (BEAKER) (test 105 meq/L 98-107 code = 382) CO2 (BEAKER) (test code = 26 meq/L 22-29 355) BLOOD UREA NITROGEN 10 mg/dL 7-21 (BEAKER) (test code = 354) CREATININE (BEAKER) (test 0.67 mg/dL 0.57-1.25 code = 358) GLUCOSE RANDOM (BEAKER) 91 mg/dL 70-105 (test code = 652) CALCIUM (BEAKER) (test 9.3 mg/dL 8.4-10.2 code = 697) EGFR (BEAKER) (test code 119 mL/min/1.73 sq m ES TIMATED GFR IS NOT = 1092) ACCURATE CREA TININE CLEARANCE IN PRE DICTING GLOMERULAR FILTR ATION RATE. ESTIMATED GFR IS NOT APPLICABLE F OR DIALYSIS PATIENT S. URINALYSIS W/ [id number] 20:17:00 Test Item Value Reference Range Comments COLOR (BEAKER) (test code = 470) Yellow CLARITY (BEAKER) (test code = 469) Hazy SPECIFIC GRAVITY UA (BEAKER) (test code = 468) 1.009 1 .001-1.035 PH UA (BEAKER) (test code = 467) 5.5 5.0-8.0 PROTEIN UA (BEAKER) (test code = 464) 20 mg/dL Negative GLUCOSE UA (BEAKER) (test code = 365) Negative Negative KETONES UA (BEAKER) (test code = 371) Negative Negative BILIRUBIN UA (BEAKER) (test code = 462) Negative Negative BLOOD UA (BEAKER) (test code = 461) Small Negative NITRITE UA (BEAKER) (test code = 465) Negative Negative LEUKOCYTE ESTERASE UA (BEAKER) (test code = Small Nega tive 466) UROBILINOGEN UA (BEAKER) (test code = 463) 0.2 mg/dL 0.2-1 .0 RBC UA (BEAKER) (test code = 519) 1 /HPF WBC UA (BEAKER) (test code = 520) 4 /HPF BACTERIA (BEAKER) (test code = 517) Few MUCUS (BEAKER) (test code = 1574) Occasional SQUAMOUS EPITHELIAL (BEAKER) (test code = 516) 8 /HPF SOURCE(BEAKER) (test code = 0939) Urine, Voided CBC W/PLT COUNT & AUTO [id number] 11:18:00 Test Item Value Reference Range Comments WHITE BLOOD CELL COUNT (BEAKER) (test code = 16.9 K/ L 3.5 -10.5 775) RED BLOOD CELL COUNT (BEAKER) (test code = 761) 2.15 M/ L 3.93-5.22 HEMOGLOBIN (BEAKER) (test code = 410) 6.5 GM/DL 11.2-15.7 HEMATOCRIT (BEAKER) (test code = 411) 20.6 % 34.1-44.9 MEAN CORPUSCULAR VOLUME (BEAKER) (test code = 95.8 fL 79 .4-94.8 753) MEAN CORPUSCULAR HEMOGLOBIN (BEAKER) (test code 30.2 pg 25.6-32.2 = 751) MEAN CORPUSCULAR HEMOGLOBIN CONC (BEAKER) (test 31.6 GM/DL 32.2-35.5 code = 752) RED CELL DISTRIBUTION WIDTH (BEAKER) (test code 25.6 % 11.7-14.4 = 412) PLATELET COUNT (BEAKER) (test code = 756) 280 K/CU MM 150-45 0 MEAN PLATELET VOLUME (BEAKER) (test code = 754) 10.7 fL 9.4-12.3 NUCLEATED RED BLOOD CELLS (BEAKER) (test code = 27 /100 WBC 0-0 413) (CELLAVISION MANUAL DIFF)[id number] 11:18:00 Test Item Value Reference Range Comments NEUTROPHILS - REL (CELLAVISION)(BEAKER) (test 61 % code = 2816) LYMPHOCYTES - REL (CELLAVISION)(BEAKER) (test 27 % code = 2817) MONOCYTES - REL (CELLAVISION)(BEAKER) (test code 8 % = 2818) EOSINOPHILS - REL (CELLAVISION)(BEAKER) (test 4 % code = 2819) NEUTROPHILS - ABS (CELLAVISION)(BEAKER) (test 10.31 K/ul 1. 56-6.13 code = 2830) LYMPHOCYTES - ABS (CELLAVISION)(BEAKER) (test 4.56 K/ul 1. 18-3.74 code = 2831) MONOCYTES - ABS (CELLAVISION)(BEAKER) (test code 1.35 K/uL 0.24-0.36 = 2832) EOSINOPHILS - ABS (CELLAVISION)(BEAKER) (test 0.68 K/uL 0. 04-0.36 code = 2834) TOTAL COUNTED (BEAKER) (test code = 1351) 100 MANUAL NRBC PER 100 CELLS (BEAKER) (test code = 28 /100 WBC 0-0 1353) WBC MORPHOLOGY (BEAKER) (test code = 487) Normal PLT MORPHOLOGY (BEAKER) (test code = 486) Normal POLYCHROMATOPHILLIC RBCS(BEAKER) (test code = 2+ moderate 478) ANISOCYTOSIS (BEAKER) (test code = 961) 2+ moderate TARGET CELLS (BEAKER) (test code = 480) 2+ moderate SICKLE CELLS (BEAKER) (test code = 767) 1+ few ARTIFACT (CELLAVISION)(BEAKER) (test code = Present 3432) PLATELET CONCENTRATION (CELLAVISION)(BEAKER) Adequate (test code = 3438) Received comment: User comments: Slide comments:BASIC METABOLIC [id number] 06:15:00 Test Item Value Reference Range Comments SODIUM (BEAKER) (test 141 meq/L 136-145 code = 381) POTASSIUM (BEAKER) (test 4.2 meq/L 3.5-5.1 code = 379) CHLORIDE (BEAKER) (test 108 meq/L 98-107 code = 382) CO2 (BEAKER) (test code = 25 meq/L 22-29 355) BLOOD UREA NITROGEN 11 mg/dL 7-21 (BEAKER) (test code = 354) CREATININE (BEAKER) (test 0.73 mg/dL 0.57-1.25 code = 358) GLUCOSE RANDOM (BEAKER) 93 mg/dL 70-105 (test code = 652) CALCIUM (BEAKER) (test 9.2 mg/dL 8.4-10.2 code = 697) EGFR (BEAKER) (test code 108 mL/min/1.73 sq m ES TIMATED GFR IS NOT = 1092) ACCURATE CREA TININE CLEARANCE IN PRE DICTING GLOMERULAR FILTR ATION RATE. ESTIMATED GFR IS NOT APPLICABLE F OR DIALYSIS PATIENT S. CBC W/PLT COUNT & AUTO [id number] 15:02:00 Test Item Value Reference Range Comments WHITE BLOOD CELL COUNT (BEAKER) (test code = 18.0 K/ L 3.5 -10.5 775) RED BLOOD CELL COUNT (BEAKER) (test code = 761) 2.31 M/ L 3.93-5.22 HEMOGLOBIN (BEAKER) (test code = 410) 7.0 GM/DL 11.2-15.7 HEMATOCRIT (BEAKER) (test code = 411) 22.4 % 34.1-44.9 MEAN CORPUSCULAR VOLUME (BEAKER) (test code = 97.0 fL 79 .4-94.8 753) MEAN CORPUSCULAR HEMOGLOBIN (BEAKER) (test code 30.3 pg 25.6-32.2 = 751) MEAN CORPUSCULAR HEMOGLOBIN CONC (BEAKER) (test 31.3 GM/DL 32.2-35.5 code = 752) RED CELL DISTRIBUTION WIDTH (BEAKER) (test code 27.9 % 11.7-14.4 = 412) PLATELET COUNT (BEAKER) (test code = 756) 337 K/CU MM 150-45 0 MEAN PLATELET VOLUME (BEAKER) (test code = 754) 10.2 fL 9.4-12.3 NUCLEATED RED BLOOD CELLS (BEAKER) (test code = 63 /100 WBC 0-0 413) NEUTROPHILS RELATIVE PERCENT (BEAKER) (test code 45 % = 429) LYMPHOCYTES RELATIVE PERCENT (BEAKER) (test code 35 % = 430) MONOCYTES RELATIVE PERCENT (BEAKER) (test code = 16 % 431) EOSINOPHILS RELATIVE PERCENT (BEAKER) (test code 2 % = 432) BASOPHILS RELATIVE PERCENT (BEAKER) (test code = 0 % 437) NEUTROPHILS ABSOLUTE COUNT (BEAKER) (test code = 8.10 K/ L 1.56-6.13 670) LYMPHOCYTES ABSOLUTE COUNT (BEAKER) (test code = 6.24 K/ L 1.18-3.74 414) MONOCYTES ABSOLUTE COUNT (BEAKER) (test code = 2.96 K/ L 0 .24-0.36 415) EOSINOPHILS ABSOLUTE COUNT (BEAKER) (test code = 0.38 K/ L 0.04-0.36 416) BASOPHILS ABSOLUTE COUNT (BEAKER) (test code = 0.06 K/ L 0 .01-0.08 417) IMMATURE GRANULOCYTES-RELATIVE PERCENT (BEAKER) 2 % 0-1 (test code = 2801) (CELLAVISION MANUAL DIFF)2018-01-30 15:02:00 Test Item Value Reference Range Comments TOTAL COUNTED (BEAKER) (test code = 1351) WBC MORPHOLOGY (BEAKER) (test code = 487) Normal PLT MORPHOLOGY (BEAKER) (test code = 486) Normal POLYCHROMATOPHILLIC RBCS(BEAKER) (test code = 2+ moderate 478) ANISOCYTOSIS (BEAKER) (test code = 961) 2+ moderate TARGET CELLS (BEAKER) (test code = 480) 2+ moderate SICKLE CELLS (BEAKER) (test code = 767) 1+ few BASIC METABOLIC [id number] 09:27:00 Test Item Value Reference Range Comments SODIUM (BEAKER) (test 141 meq/L 136-145 code = 381) POTASSIUM (BEAKER) (test 4.0 meq/L 3.5-5.1 code = 379) CHLORIDE (BEAKER) (test 108 meq/L 98-107 code = 382) CO2 (BEAKER) (test code = 24 meq/L 22-29 355) BLOOD UREA NITROGEN 12 mg/dL 7-21 (BEAKER) (test code = 354) CREATININE (BEAKER) (test 0.80 mg/dL 0.57-1.25 code = 358) GLUCOSE RANDOM (BEAKER) 95 mg/dL 70-105 (test code = 652) CALCIUM (BEAKER) (test 9.5 mg/dL 8.4-10.2 code = 697) EGFR (BEAKER) (test code 97 mL/min/1.73 sq m EST IMATED GFR IS NOT = 1092) ACCURATE CREA TININE CLEARANCE IN PRE DICTING GLOMERULAR FILTR ATION RATE. ESTIMATED GFR IS NOT APPLICABLE F OR DIALYSIS PATIENT S. [id number] 17:59:00 Test Item Value Reference Range Comments FERRITIN (BEAKER) (test code = 361) 54108 ng/mL 5-275 CBC W/PLT COUNT & AUTO [id number] 17:20:00 Test Item Value Reference Range Comments WHITE BLOOD CELL COUNT (BEAKER) (test code = 19.9 K/ L 3.5 -10.5 775) RED BLOOD CELL COUNT (BEAKER) (test code = 761) 1.53 M/ L 3.93-5.22 HEMOGLOBIN (BEAKER) (test code = 410) 5.0 GM/DL 11.2-15.7 HEMATOCRIT (BEAKER) (test code = 411) 16.0 % 34.1-44.9 MEAN CORPUSCULAR VOLUME (BEAKER) (test code = 104.6 fL 79 .4-94.8 753) MEAN CORPUSCULAR HEMOGLOBIN (BEAKER) (test code 32.7 pg 25.6-32.2 = 751) MEAN CORPUSCULAR HEMOGLOBIN CONC (BEAKER) (test 31.3 GM/DL 32.2-35.5 code = 752) RED CELL DISTRIBUTION WIDTH (BEAKER) (test code 33.7 % 11.7-14.4 = 412) PLATELET COUNT (BEAKER) (test code = 756) 364 K/CU MM 150-45 0 MEAN PLATELET VOLUME (BEAKER) (test code = 754) 10.4 fL 9.4-12.3 NUCLEATED RED BLOOD CELLS (BEAKER) (test code = 62 /100 WBC 0-0 413) RETICULOCYTE [id number] 17:20:00 Test Item Value Reference Range Comments RETICULOCYTE COUNT PCT (BEAKER) (test code = 575) > % 0.5-1.7 (CELLAVISION MANUAL DIFF)2018-01-29 17:20:00 Test Item Value Reference Range Comments TOTAL COUNTED (BEAKER) (test code = 1351) RBC MORPHOLOGY (BEAKER) (test code = 762) Normal WBC MORPHOLOGY (BEAKER) (test code = 487) Normal PLT MORPHOLOGY (BEAKER) (test code = 486) Normal LACTATE DEHYDROGENASE (LDH)2018-01-29 17:04:00 Test Item Value Reference Range Comments LACTATE DEHYDROGENASE (BEAKER) (test code = 635) 989 U/L 125-220 BASIC METABOLIC [id number] 17:04:00 Test Item Value Reference Range Comments SODIUM (BEAKER) (test 138 meq/L 136-145 code = 381) POTASSIUM (BEAKER) (test 4.2 meq/L 3.5-5.1 code = 379) CHLORIDE (BEAKER) (test 109 meq/L 98-107 code = 382) CO2 (BEAKER) (test code = 22 meq/L 22-29 355) BLOOD UREA NITROGEN 11 mg/dL 7-21 (BEAKER) (test code = 354) CREATININE (BEAKER) (test 0.76 mg/dL 0.57-1.25 code = 358) GLUCOSE RANDOM (BEAKER) 104 mg/dL 70-105 (test code = 652) CALCIUM (BEAKER) (test 9.5 mg/dL 8.4-10.2 code = 697) EGFR (BEAKER) (test code 103 mL/min/1.73 sq m ES TIMATED GFR IS NOT = 1092) ACCURATE CREA TININE CLEARANCE IN PRE DICTING GLOMERULAR FILTR ATION RATE. ESTIMATED GFR IS NOT APPLICABLE F OR DIALYSIS PATIENT S. ANTI-MITOCHONDRIAL AB, REFLEX TO [id number] 11:03:00 Test Item Value Reference Range Comments SCAN RESULT (test code = 7352529) CALCIUM, [id number] 07:05:00 Test Item Value Reference Range Comments CALCIUM IONIZED (BEAKER) (test code = 698) 1.10 mmol/L 1.12- 1.27 PH, BLOOD (BEAKER) (test code = 1810) 7.30 [id number] 06:22:00 Test Item Value Reference Range Comments PHOSPHORUS (BEAKER) (test code = 604) 4.7 mg/dL 2.3-4.7 [id number] 06:22:00 Test Item Value Reference Range Comments MAGNESIUM (BEAKER) (test code = 627) 1.4 mg/dL 1.6-2.6 BASIC METABOLIC [id number] 06:22:00 Test Item Value Reference Range Comments SODIUM (BEAKER) (test 135 meq/L 136-145 code = 381) POTASSIUM (BEAKER) (test 4.5 meq/L 3.5-5.1 code = 379) CHLORIDE (BEAKER) (test 100 meq/L 98-107 code = 382) CO2 (BEAKER) (test code = 29 meq/L 22-29 355) BLOOD UREA NITROGEN 19 mg/dL 7-21 (BEAKER) (test code = 354) CREATININE (BEAKER) (test 0.76 mg/dL 0.57-1.25 code = 358) GLUCOSE RANDOM (BEAKER) 104 mg/dL 70-105 (test code = 652) CALCIUM (BEAKER) (test 9.3 mg/dL 8.4-10.2 code = 697) EGFR (BEAKER) (test code 103 mL/min/1.73 sq m ES TIMATED GFR IS NOT = 1092) ACCURATE CREA TININE CLEARANCE IN PRE DICTING GLOMERULAR FILTR ATION RATE. ESTIMATED GFR IS NOT APPLICABLE F OR DIALYSIS PATIENT S. CREATINE KINASE (CK)2017-11-24 08:12:00 Test Item Value Reference Range Comments CREATINE KINASE TOTAL (BEAKER) (test code = 380) 8 U/L 29-200 URIC [id number] 08:01:00 Test Item Value Reference Range Comments URIC ACID (BEAKER) (test code = 773) 4.8 mg/dL 2.6-7.2 [id number] 08:01:00 Test Item Value Reference Range Comments MAGNESIUM (BEAKER) (test code = 627) 1.5 mg/dL 1.6-2.6 [id number] 08:01:00 Test Item Value Reference Range Comments PHOSPHORUS (BEAKER) (test code = 604) 5.3 mg/dL 2.3-4.7 BASIC METABOLIC [id number] 08:01:00 Test Item Value Reference Range Comments SODIUM (BEAKER) (test 138 meq/L 136-145 code = 381) POTASSIUM (BEAKER) (test 4.9 meq/L 3.5-5.1 code = 379) CHLORIDE (BEAKER) (test 100 meq/L 98-107 code = 382) CO2 (BEAKER) (test code = 28 meq/L 22-29 355) BLOOD UREA NITROGEN 22 mg/dL 7-21 (BEAKER) (test code = 354) CREATININE (BEAKER) (test 0.80 mg/dL 0.57-1.25 code = 358) GLUCOSE RANDOM (BEAKER) 102 mg/dL 70-105 (test code = 652) CALCIUM (BEAKER) (test 9.3 mg/dL 8.4-10.2 code = 697) EGFR (BEAKER) (test code 97 mL/min/1.73 sq m EST IMATED GFR IS NOT = 1092) ACCURATE CREA TININE CLEARANCE IN PRE DICTING GLOMERULAR FILTR ATION RATE. ESTIMATED GFR IS NOT APPLICABLE F OR DIALYSIS PATIENT S. LACTATE DEHYDROGENASE (LDH)2017-11-24 08:01:00 Test Item Value Reference Range Comments LACTATE DEHYDROGENASE (BEAKER) (test code = 635) 489 U/L 125-220 [id number] 18:07:00 Test Item Value Reference Range Comments POTASSIUM (BEAKER) (test code = 379) 5.5 meq/L 3.5-5.1 Call if K > 5.4 to renal 603 790 1032CALCIUM, [id number] 06:51:00 Test Item Value Reference Range Comments CALCIUM IONIZED (BEAKER) (test code = 698) 1.08 mmol/L 1.12- 1.27 PH, BLOOD (BEAKER) (test code = 1810) 7.35 CBC W/PLT COUNT & AUTO [id number] 06:25:00 Test Item Value Reference Range Comments WHITE BLOOD CELL COUNT (BEAKER) (test code = 18.3 K/ L 3.5 -10.5 775) RED BLOOD CELL COUNT (BEAKER) (test code = 761) 2.30 M/ L 3.93-5.22 HEMOGLOBIN (BEAKER) (test code = 410) 6.5 GM/DL 11.2-15.7 HEMATOCRIT (BEAKER) (test code = 411) 21.1 % 34.1-44.9 MEAN CORPUSCULAR VOLUME (BEAKER) (test code = 91.7 fL 79 .4-94.8 753) MEAN CORPUSCULAR HEMOGLOBIN (BEAKER) (test code 28.3 pg 25.6-32.2 = 751) MEAN CORPUSCULAR HEMOGLOBIN CONC (BEAKER) (test 30.8 GM/DL 32.2-35.5 code = 752) RED CELL DISTRIBUTION WIDTH (BEAKER) (test code 21.2 % 11.7-14.4 = 412) PLATELET COUNT (BEAKER) (test code = 756) 414 K/CU MM 150-45 0 MEAN PLATELET VOLUME (BEAKER) (test code = 754) 11.5 fL 9.4-12.3 NUCLEATED RED BLOOD CELLS (BEAKER) (test code = 0 /100 WBC 0-0 413) NEUTROPHILS RELATIVE PERCENT (BEAKER) (test code 53 % = 429) LYMPHOCYTES RELATIVE PERCENT (BEAKER) (test code 25 % = 430) MONOCYTES RELATIVE PERCENT (BEAKER) (test code = 19 % 431) EOSINOPHILS RELATIVE PERCENT (BEAKER) (test code 2 % = 432) BASOPHILS RELATIVE PERCENT (BEAKER) (test code = 0 % 437) NEUTROPHILS ABSOLUTE COUNT (BEAKER) (test code = 9.74 K/ L 1.56-6.13 670) LYMPHOCYTES ABSOLUTE COUNT (BEAKER) (test code = 4.57 K/ L 1.18-3.74 414) MONOCYTES ABSOLUTE COUNT (BEAKER) (test code = 3.51 K/ L 0 .24-0.36 415) EOSINOPHILS ABSOLUTE COUNT (BEAKER) (test code = 0.29 K/ L 0.04-0.36 416) BASOPHILS ABSOLUTE COUNT (BEAKER) (test code = 0.07 K/ L 0 .01-0.08 417) IMMATURE GRANULOCYTES-RELATIVE PERCENT (BEAKER) 1 % 0-1 (test code = 2801) [id number] 05:35:00 Test Item Value Reference Range Comments PHOSPHORUS (BEAKER) (test code = 604) 4.4 mg/dL 2.3-4.7 [id number] 05:35:00 Test Item Value Reference Range Comments MAGNESIUM (BEAKER) (test code = 627) 1.3 mg/dL 1.6-2.6 BASIC METABOLIC [id number] 05:35:00 Test Item Value Reference Range Comments SODIUM (BEAKER) (test 136 meq/L 136-145 code = 381) POTASSIUM (BEAKER) (test 5.4 meq/L 3.5-5.1 code = 379) CHLORIDE (BEAKER) (test 97 meq/L 98-107 code = 382) CO2 (BEAKER) (test code = 31 meq/L 22-29 355) BLOOD UREA NITROGEN 20 mg/dL 7-21 (BEAKER) (test code = 354) CREATININE (BEAKER) (test 0.75 mg/dL 0.57-1.25 code = 358) GLUCOSE RANDOM (BEAKER) 81 mg/dL 70-105 (test code = 652) CALCIUM (BEAKER) (test 9.5 mg/dL 8.4-10.2 code = 697) EGFR (BEAKER) (test code 105 mL/min/1.73 sq m ES TIMATED GFR IS NOT = 1092) ACCURATE CREA TININE CLEARANCE IN PRE DICTING GLOMERULAR FILTR ATION RATE. ESTIMATED GFR IS NOT APPLICABLE F OR DIALYSIS PATIENT S. [id number] 16:19:00 Test Item Value Reference Range Comments POTASSIUM (BEAKER) (test code = 379) 5.2 meq/L 3.5-5.1 Repeat after 3 hours kayexalate was given; call result [id number] 2017-11-22 12:53:00 Test Item Value Reference Range Comments SODIUM (BEAKER) (test code = 381) 137 meq/L 136-145 POTASSIUM (BEAKER) (test code = 379) 5.4 meq/L 3.5-5.1 CHLORIDE (BEAKER) (test code = 382) 100 meq/L 98-107 CO2 (BEAKER) (test code = 355) 30 meq/L 22-29 Call results [id number] 11:14:00 Test Item Value Reference Range Comments POTASSIUM (BEAKER) (test code = 379) 5.8 meq/L 3.5-5.1 [id number] 06:40:00 Test Item Value Reference Range Comments PHOSPHORUS (BEAKER) (test code = 604) 5.4 mg/dL 2.3-4.7 [id number] 06:40:00 Test Item Value Reference Range Comments MAGNESIUM (BEAKER) (test code = 627) 1.6 mg/dL 1.6-2.6 CALCIUM, [id number] 06:27:00 Test Item Value Reference Range Comments CALCIUM IONIZED (BEAKER) (test code = 698) 0.99 mmol/L 1.12- 1.27 PH, BLOOD (BEAKER) (test code = 1810) 7.43 CBC W/PLT COUNT & AUTO [id number] 05:53:00 Test Item Value Reference Range Comments WHITE BLOOD CELL COUNT (BEAKER) (test code = 16.2 K/ L 3.5 -10.5 775) RED BLOOD CELL COUNT (BEAKER) (test code = 761) 2.38 M/ L 3.93-5.22 HEMOGLOBIN (BEAKER) (test code = 410) 7.0 GM/DL 11.2-15.7 HEMATOCRIT (BEAKER) (test code = 411) 22.2 % 34.1-44.9 MEAN CORPUSCULAR VOLUME (BEAKER) (test code = 93.3 fL 79 .4-94.8 753) MEAN CORPUSCULAR HEMOGLOBIN (BEAKER) (test code 29.4 pg 25.6-32.2 = 751) MEAN CORPUSCULAR HEMOGLOBIN CONC (BEAKER) (test 31.5 GM/DL 32.2-35.5 code = 752) RED CELL DISTRIBUTION WIDTH (BEAKER) (test code 21.3 % 11.7-14.4 = 412) PLATELET COUNT (BEAKER) (test code = 756) 390 K/CU MM 150-45 0 MEAN PLATELET VOLUME (BEAKER) (test code = 754) 11.8 fL 9.4-12.3 NUCLEATED RED BLOOD CELLS (BEAKER) (test code = 0 /100 WBC 0-0 413) NEUTROPHILS RELATIVE PERCENT (BEAKER) (test code 58 % = 429) LYMPHOCYTES RELATIVE PERCENT (BEAKER) (test code 23 % = 430) MONOCYTES RELATIVE PERCENT (BEAKER) (test code = 17 % 431) EOSINOPHILS RELATIVE PERCENT (BEAKER) (test code 2 % = 432) BASOPHILS RELATIVE PERCENT (BEAKER) (test code = 0 % 437) NEUTROPHILS ABSOLUTE COUNT (BEAKER) (test code = 9.31 K/ L 1.56-6.13 670) LYMPHOCYTES ABSOLUTE COUNT (BEAKER) (test code = 3.65 K/ L 1.18-3.74 414) MONOCYTES ABSOLUTE COUNT (BEAKER) (test code = 2.70 K/ L 0 .24-0.36 415) EOSINOPHILS ABSOLUTE COUNT (BEAKER) (test code = 0.36 K/ L 0.04-0.36 416) BASOPHILS ABSOLUTE COUNT (BEAKER) (test code = 0.04 K/ L 0 .01-0.08 417) IMMATURE GRANULOCYTES-RELATIVE PERCENT (BEAKER) 1 % 0-1 (test code = 2801) BASIC METABOLIC [id number] 17:35:00 Test Item Value Reference Range Comments SODIUM (BEAKER) (test 133 meq/L 136-145 code = 381) POTASSIUM (BEAKER) (test 5.4 meq/L 3.5-5.1 code = 379) CHLORIDE (BEAKER) (test 99 meq/L 98-107 code = 382) CO2 (BEAKER) (test code = 26 meq/L 22-29 355) BLOOD UREA NITROGEN 23 mg/dL 7-21 (BEAKER) (test code = 354) CREATININE (BEAKER) (test 0.83 mg/dL 0.57-1.25 code = 358) GLUCOSE RANDOM (BEAKER) 94 mg/dL 70-105 (test code = 652) CALCIUM (BEAKER) (test 9.2 mg/dL 8.4-10.2 code = 697) EGFR (BEAKER) (test code 93 mL/min/1.73 sq m EST IMATED GFR IS NOT = 1092) ACCURATE CREA TININE CLEARANCE IN PRE DICTING GLOMERULAR FILTR ATION RATE. ESTIMATED GFR IS NOT APPLICABLE F OR DIALYSIS PATIENT S. [id number] 06:33:00 Test Item Value Reference Range Comments PHOSPHORUS (BEAKER) (test code = 604) 5.3 mg/dL 2.3-4.7 [id number] 06:33:00 Test Item Value Reference Range Comments MAGNESIUM (BEAKER) (test code = 627) 1.6 mg/dL 1.6-2.6 BASIC METABOLIC [id number] 06:33:00 Test Item Value Reference Range Comments SODIUM (BEAKER) (test 133 meq/L 136-145 code = 381) POTASSIUM (BEAKER) (test 5.2 meq/L 3.5-5.1 code = 379) CHLORIDE (BEAKER) (test 97 meq/L 98-107 code = 382) CO2 (BEAKER) (test code = 29 meq/L 22-29 355) BLOOD UREA NITROGEN 23 mg/dL 7-21 (BEAKER) (test code = 354) CREATININE (BEAKER) (test 0.77 mg/dL 0.57-1.25 code = 358) GLUCOSE RANDOM (BEAKER) 92 mg/dL 70-105 (test code = 652) CALCIUM (BEAKER) (test 9.4 mg/dL 8.4-10.2 code = 697) EGFR (BEAKER) (test code 102 mL/min/1.73 sq m ES TIMATED GFR IS NOT = 1092) ACCURATE CREA TININE CLEARANCE IN PRE DICTING GLOMERULAR FILTR ATION RATE. ESTIMATED GFR IS NOT APPLICABLE F OR DIALYSIS PATIENT S. CALCIUM, [id number] 06:22:00 Test Item Value Reference Range Comments CALCIUM IONIZED (BEAKER) (test code = 698) 1.18 mmol/L 1.12- 1.27 PH, BLOOD (BEAKER) (test code = 1810) 7.32 B-TYPE NATRIURETIC FACTOR (BNP)2017-11-21 06:19:00 Test Item Value Reference Range Comments B-TYPE NATRIURETIC PEPTIDE (BEAKER) (test code = 120 pg/mL 0-100 700) CBC W/PLT COUNT & AUTO [id number] 05:59:00 Test Item Value Reference Range Comments WHITE BLOOD CELL COUNT (BEAKER) (test code = 17.4 K/ L 3.5 -10.5 775) RED BLOOD CELL COUNT (BEAKER) (test code = 761) 2.32 M/ L 3.93-5.22 HEMOGLOBIN (BEAKER) (test code = 410) 6.7 GM/DL 11.2-15.7 HEMATOCRIT (BEAKER) (test code = 411) 21.6 % 34.1-44.9 MEAN CORPUSCULAR VOLUME (BEAKER) (test code = 93.1 fL 79 .4-94.8 753) MEAN CORPUSCULAR HEMOGLOBIN (BEAKER) (test code 28.9 pg 25.6-32.2 = 751) MEAN CORPUSCULAR HEMOGLOBIN CONC (BEAKER) (test 31.0 GM/DL 32.2-35.5 code = 752) RED CELL DISTRIBUTION WIDTH (BEAKER) (test code 20.9 % 11.7-14.4 = 412) PLATELET COUNT (BEAKER) (test code = 756) 367 K/CU MM 150-45 0 MEAN PLATELET VOLUME (BEAKER) (test code = 754) 12.1 fL 9.4-12.3 NUCLEATED RED BLOOD CELLS (BEAKER) (test code = 0 /100 WBC 0-0 413) NEUTROPHILS RELATIVE PERCENT (BEAKER) (test code 58 % = 429) LYMPHOCYTES RELATIVE PERCENT (BEAKER) (test code 23 % = 430) MONOCYTES RELATIVE PERCENT (BEAKER) (test code = 16 % 431) EOSINOPHILS RELATIVE PERCENT (BEAKER) (test code 3 % = 432) BASOPHILS RELATIVE PERCENT (BEAKER) (test code = 1 % 437) NEUTROPHILS ABSOLUTE COUNT (BEAKER) (test code = 10.09 K/ L 1.56-6.13 670) LYMPHOCYTES ABSOLUTE COUNT (BEAKER) (test code = 3.92 K/ L 1.18-3.74 414) MONOCYTES ABSOLUTE COUNT (BEAKER) (test code = 2.71 K/ L 0 .24-0.36 415) EOSINOPHILS ABSOLUTE COUNT (BEAKER) (test code = 0.46 K/ L 0.04-0.36 416) BASOPHILS ABSOLUTE COUNT (BEAKER) (test code = 0.08 K/ L 0 .01-0.08 417) IMMATURE GRANULOCYTES-RELATIVE PERCENT (BEAKER) 1 % 0-1 (test code = 2801) BLOOD GAS, [id number] 07:22:00 Test Item Value Reference Range Comments PH VENOUS (BEAKER) (test code = 701) 7.34 7.32-7.42 PCO2 VENOUS (BEAKER) (test code = 755) 63 mmHg 41-51 PO2 VENOUS (BEAKER) (test code = 702) 133 mmHg 25-40 O2 SATURATION VENOUS (BEAKER) (test code = 703) 98.4 % 40.0-70.0 HCO3 VENOUS (BEAKER) (test code = 705) 33 mmol/L 21-29 BASE EXCESS VENOUS (BEAKER) (test code = 704) 6.6 mmol/L -2 .0-3.0 PATIENT TEMPERATURE (BEAKER) (test code = 1818) 37.0 C FIO2 (BEAKER) (test code = 1819) 21.0 % CALCIUM, [id number] 07:20:00 Test Item Value Reference Range Comments CALCIUM IONIZED (BEAKER) (test code = 698) 1.10 mmol/L 1.12- 1.27 PH, BLOOD (BEAKER) (test code = 1810) 7.33 [id number] 07:18:00 Test Item Value Reference Range Comments PHOSPHORUS (BEAKER) (test code = 604) 4.8 mg/dL 2.3-4.7 [id number] 07:18:00 Test Item Value Reference Range Comments MAGNESIUM (BEAKER) (test code = 627) 1.6 mg/dL 1.6-2.6 BASIC METABOLIC [id number] 07:18:00 Test Item Value Reference Range Comments SODIUM (BEAKER) (test 137 meq/L 136-145 code = 381) POTASSIUM (BEAKER) (test 4.8 meq/L 3.5-5.1 code = 379) CHLORIDE (BEAKER) (test 99 meq/L 98-107 code = 382) CO2 (BEAKER) (test code = 31 meq/L 22-29 355) BLOOD UREA NITROGEN 20 mg/dL 7-21 (BEAKER) (test code = 354) CREATININE (BEAKER) (test 0.83 mg/dL 0.57-1.25 code = 358) GLUCOSE RANDOM (BEAKER) 117 mg/dL 70-105 (test code = 652) CALCIUM (BEAKER) (test 9.5 mg/dL 8.4-10.2 code = 697) EGFR (BEAKER) (test code 93 mL/min/1.73 sq m EST IMATED GFR IS NOT = 1092) ACCURATE CREA TININE CLEARANCE IN PRE DICTING GLOMERULAR FILTR ATION RATE. ESTIMATED GFR IS NOT APPLICABLE F OR DIALYSIS PATIENT S. CBC W/PLT COUNT & AUTO [id number] 07:14:00 Test Item Value Reference Range Comments WHITE BLOOD CELL COUNT (BEAKER) (test code = 16.7 K/ L 3.5 -10.5 775) RED BLOOD CELL COUNT (BEAKER) (test code = 761) 2.39 M/ L 3.93-5.22 HEMOGLOBIN (BEAKER) (test code = 410) 6.9 GM/DL 11.2-15.7 HEMATOCRIT (BEAKER) (test code = 411) 22.3 % 34.1-44.9 MEAN CORPUSCULAR VOLUME (BEAKER) (test code = 93.3 fL 79 .4-94.8 753) MEAN CORPUSCULAR HEMOGLOBIN (BEAKER) (test code 28.9 pg 25.6-32.2 = 751) MEAN CORPUSCULAR HEMOGLOBIN CONC (BEAKER) (test 30.9 GM/DL 32.2-35.5 code = 752) RED CELL DISTRIBUTION WIDTH (BEAKER) (test code 21.1 % 11.7-14.4 = 412) PLATELET COUNT (BEAKER) (test code = 756) 344 K/CU MM 150-45 0 MEAN PLATELET VOLUME (BEAKER) (test code = 754) 11.7 fL 9.4-12.3 NUCLEATED RED BLOOD CELLS (BEAKER) (test code = 0 /100 WBC 0-0 413) NEUTROPHILS RELATIVE PERCENT (BEAKER) (test code 60 % = 429) LYMPHOCYTES RELATIVE PERCENT (BEAKER) (test code 23 % = 430) MONOCYTES RELATIVE PERCENT (BEAKER) (test code = 14 % 431) EOSINOPHILS RELATIVE PERCENT (BEAKER) (test code 3 % = 432) BASOPHILS RELATIVE PERCENT (BEAKER) (test code = 0 % 437) NEUTROPHILS ABSOLUTE COUNT (BEAKER) (test code = 9.95 K/ L 1.56-6.13 670) LYMPHOCYTES ABSOLUTE COUNT (BEAKER) (test code = 3.92 K/ L 1.18-3.74 414) MONOCYTES ABSOLUTE COUNT (BEAKER) (test code = 2.29 K/ L 0 .24-0.36 415) EOSINOPHILS ABSOLUTE COUNT (BEAKER) (test code = 0.45 K/ L 0.04-0.36 416) BASOPHILS ABSOLUTE COUNT (BEAKER) (test code = 0.04 K/ L 0 .01-0.08 417) IMMATURE GRANULOCYTES-RELATIVE PERCENT (BEAKER) 0 % 0-1 (test code = 2801) [id number] 11:18:00 Test Item Value Reference Range Comments FERRITIN (BEAKER) (test code = 361) 57385 ng/mL 5-275 [id number] 07:10:00 Test Item Value Reference Range Comments MAGNESIUM (BEAKER) (test code = 627) 2.0 mg/dL 1.6-2.6 BASIC METABOLIC [id number] 07:10:00 Test Item Value Reference Range Comments SODIUM (BEAKER) (test 137 meq/L 136-145 code = 381) POTASSIUM (BEAKER) (test 4.5 meq/L 3.5-5.1 code = 379) CHLORIDE (BEAKER) (test 99 meq/L 98-107 code = 382) CO2 (BEAKER) (test code = 35 meq/L 22-29 355) BLOOD UREA NITROGEN 18 mg/dL 7-21 (BEAKER) (test code = 354) CREATININE (BEAKER) (test 0.78 mg/dL 0.57-1.25 code = 358) GLUCOSE RANDOM (BEAKER) 102 mg/dL 70-105 (test code = 652) CALCIUM (BEAKER) (test 9.4 mg/dL 8.4-10.2 code = 697) EGFR (BEAKER) (test code 100 mL/min/1.73 sq m ES TIMATED GFR IS NOT = 1092) ACCURATE CREA TININE CLEARANCE IN PRE DICTING GLOMERULAR FILTR ATION RATE. ESTIMATED GFR IS NOT APPLICABLE F OR DIALYSIS PATIENT S. CBC (HEMOGRAM ONLY)2017-11-19 07:06:00 Test Item Value Reference Range Comments WHITE BLOOD CELL COUNT (BEAKER) (test code = 15.3 K/ L 3.5 -10.5 775) RED BLOOD CELL COUNT (BEAKER) (test code = 761) 2.42 M/ L 3.93-5.22 HEMOGLOBIN (BEAKER) (test code = 410) 7.1 GM/DL 11.2-15.7 HEMATOCRIT (BEAKER) (test code = 411) 22.5 % 34.1-44.9 MEAN CORPUSCULAR VOLUME (BEAKER) (test code = 93.0 fL 79 .4-94.8 753) MEAN CORPUSCULAR HEMOGLOBIN (BEAKER) (test code 29.3 pg 25.6-32.2 = 751) MEAN CORPUSCULAR HEMOGLOBIN CONC (BEAKER) (test 31.6 GM/DL 32.2-35.5 code = 752) RED CELL DISTRIBUTION WIDTH (BEAKER) (test code 20.9 % 11.7-14.4 = 412) PLATELET COUNT (BEAKER) (test code = 756) 324 K/CU MM 150-45 0 MEAN PLATELET VOLUME (BEAKER) (test code = 754) 11.8 fL 9.4-12.3 NUCLEATED RED BLOOD CELLS (BEAKER) (test code = 1 /100 WBC 0-0 413) BLOOD [id number] 06:00:00 Test Item Value Reference Range Comments CULTURE (BEAKER) (test code = 1095) No growth in 5 days ANTI-NUCLEAR ANTIBODY (AMARILYS)2017-11-17 14:21:00 Test Item Value Reference Range Comments ANTI-NUCLEAR ANTIBODY (AMARILYS) (BEAKER) (test code = Positive Negative 418) AMARILYS TITER AND [id number] 14:21:00 Test Item Value Reference Range Comments AMARILYS TITER (BEAKER) (test code :160 = 1541) AMARILYS PATTERN (BEAKER) (test Multiple nuclear dots pattern code = 1781) [id number] 07:16:00 Test Item Value Reference Range Comments PHOSPHORUS (BEAKER) (test code = 604) 4.5 mg/dL 2.3-4.7 [id number] 07:16:00 Test Item Value Reference Range Comments MAGNESIUM (BEAKER) (test code = 627) 1.4 mg/dL 1.6-2.6 BASIC METABOLIC [id number] 07:16:00 Test Item Value Reference Range Comments SODIUM (BEAKER) (test 141 meq/L 136-145 code = 381) POTASSIUM (BEAKER) (test 4.2 meq/L 3.5-5.1 code = 379) CHLORIDE (BEAKER) (test 98 meq/L 98-107 code = 382) CO2 (BEAKER) (test code = 34 meq/L 22-29 355) BLOOD UREA NITROGEN 21 mg/dL 7-21 (BEAKER) (test code = 354) CREATININE (BEAKER) (test 0.85 mg/dL 0.57-1.25 code = 358) GLUCOSE RANDOM (BEAKER) 98 mg/dL 70-105 (test code = 652) CALCIUM (BEAKER) (test 9.2 mg/dL 8.4-10.2 code = 697) EGFR (BEAKER) (test code 91 mL/min/1.73 sq m EST IMATED GFR IS NOT = 1092) ACCURATE CREA TININE CLEARANCE IN PRE DICTING GLOMERULAR FILTR ATION RATE. ESTIMATED GFR IS NOT APPLICABLE F OR DIALYSIS PATIENT S. HEPATIC FUNCTION [id number] 07:16:00 Test Item Value Reference Range Comments TOTAL PROTEIN (BEAKER) (test code = 770) 8.3 gm/dL 6.0-8.3 ALBUMIN (BEAKER) (test code = 1145) 3.0 g/dL 3.5-5.0 BILIRUBIN TOTAL (BEAKER) (test code = 377) 1.3 mg/dL 0.2-1 .2 BILIRUBIN DIRECT (BEAKER) (test code = 706) 0.7 mg/dL 0.1- 0.5 ALKALINE PHOSPHATASE (BEAKER) (test code = 346) 217 U/L 40-150 AST (SGOT) (BEAKER) (test code = 353) 106 U/L 5-34 ALT (SGPT) (BEAKER) (test code = 347) 46 U/L 6-55 CALCIUM, [id number] 06:50:00 Test Item Value Reference Range Comments CALCIUM IONIZED (BEAKER) (test code = 698) 1.11 mmol/L 1.12- 1.27 PH, BLOOD (BEAKER) (test code = 1810) 7.34 CBC W/PLT COUNT & AUTO [id number] 06:09:00 Test Item Value Reference Range Comments WHITE BLOOD CELL COUNT (BEAKER) (test code = 16.8 K/ L 3.5 -10.5 775) RED BLOOD CELL COUNT (BEAKER) (test code = 761) 2.53 M/ L 3.93-5.22 HEMOGLOBIN (BEAKER) (test code = 410) 7.3 GM/DL 11.2-15.7 HEMATOCRIT (BEAKER) (test code = 411) 23.3 % 34.1-44.9 MEAN CORPUSCULAR VOLUME (BEAKER) (test code = 92.1 fL 79 .4-94.8 753) MEAN CORPUSCULAR HEMOGLOBIN (BEAKER) (test code 28.9 pg 25.6-32.2 = 751) MEAN CORPUSCULAR HEMOGLOBIN CONC (BEAKER) (test 31.3 GM/DL 32.2-35.5 code = 752) RED CELL DISTRIBUTION WIDTH (BEAKER) (test code 20.2 % 11.7-14.4 = 412) PLATELET COUNT (BEAKER) (test code = 756) 305 K/CU MM 150-45 0 MEAN PLATELET VOLUME (BEAKER) (test code = 754) 12.0 fL 9.4-12.3 NUCLEATED RED BLOOD CELLS (BEAKER) (test code = 1 /100 WBC 0-0 413) NEUTROPHILS RELATIVE PERCENT (BEAKER) (test code 66 % = 429) LYMPHOCYTES RELATIVE PERCENT (BEAKER) (test code 20 % = 430) MONOCYTES RELATIVE PERCENT (BEAKER) (test code = 11 % 431) EOSINOPHILS RELATIVE PERCENT (BEAKER) (test code 3 % = 432) BASOPHILS RELATIVE PERCENT (BEAKER) (test code = 0 % 437) NEUTROPHILS ABSOLUTE COUNT (BEAKER) (test code = 10.99 K/ L 1.56-6.13 670) LYMPHOCYTES ABSOLUTE COUNT (BEAKER) (test code = 3.29 K/ L 1.18-3.74 414) MONOCYTES ABSOLUTE COUNT (BEAKER) (test code = 1.89 K/ L 0 .24-0.36 415) EOSINOPHILS ABSOLUTE COUNT (BEAKER) (test code = 0.48 K/ L 0.04-0.36 416) BASOPHILS ABSOLUTE COUNT (BEAKER) (test code = 0.05 K/ L 0 .01-0.08 417) IMMATURE GRANULOCYTES-RELATIVE PERCENT (BEAKER) 0 % 0-1 (test code = 2801) HEPATITIS PANEL, [id number] 14:32:00 Test Item Value Reference Range Comments HEPATITIS A IGM ANTIBODY (BEAKER) (test code = Nonreactive N onreactive 498) HEPATITIS B CORE IGM ANTIBODY (BEAKER) (test Nonreactive Non reactive code = 645) HEPATITIS C ANTIBODY (BEAKER) (test code = 367) Nonreactive Nonreactive HEPATITIS B SURFACE ANTIGEN (2) (BEAKER) (test Nonreactive N onreactive code = 2585) RAD, MANDIBLE, LESS THAN 4 [id number] 12:28:00Reason for exam:->fever, dental cariesFINAL REPORT Mandible [...] cells are well aerated. Signed: Anselmo Cain Verified Date/Time: 11/16/2017 12:28:43 Reading Location: [facility] Radiology Reading Room RAD, CHEST, 2 [id number] 10:47:00Reason for exam:->fever, chest painFINAL REPORT Chest two views INDICATION: Fever, chest pain COMPARISON: 11/08/2017 IMPRESSION: The cardiac silhouette is enlarged. There is pulmonary vascular congestion with interstitial reticulation suggesting mild edema. Trace pleural effusions are present with improved basilaropacities, likely atelectasis. Pneumonitis cannot be excluded, however. A Port-A-Cath, osteopenia, and chronic left clavicular fracture are noted. No pneumothorax is seen. Signed: [facility] Verified Date/Time: 11/16/2017 10:47:19 Reading Location: [facility] Radiology Reading Room URINE CULTURE 2017-11-16 09:53:00 Test Item Value Reference Range Comments CULTURE (SOMMER) (test code = >100,000 col/mL skin valentino 1095) CBC W/PLT COUNT & AUTO [id number] 09:20:00 Test Item Value Reference Range Comments WHITE BLOOD CELL COUNT (CHAPITOAKER) (test code = 18.6 K/ L 3.5 -10.5 775) RED BLOOD CELL COUNT (BEAKER) (test code = 761) 2.63 M/ L 3.93-5.22 HEMOGLOBIN (BEAKER) (test code = 410) 7.6 GM/DL 11.2-15.7 HEMATOCRIT (BEAKER) (test code = 411) 23.8 % 34.1-44.9 MEAN CORPUSCULAR VOLUME (BEAKER) (test code = 90.5 fL 79 .4-94.8 753) MEAN CORPUSCULAR HEMOGLOBIN (BEAKER) (test code 28.9 pg 25.6-32.2 = 751) MEAN CORPUSCULAR HEMOGLOBIN CONC (BEAKER) (test 31.9 GM/DL 32.2-35.5 code = 752) RED CELL DISTRIBUTION WIDTH (BEAKER) (test code 19.9 % 11.7-14.4 = 412) PLATELET COUNT (BEAKER) (test code = 756) 330 K/CU MM 150-45 0 MEAN PLATELET VOLUME (BEAKER) (test code = 754) 11.9 fL 9.4-12.3 NUCLEATED RED BLOOD CELLS (BEAKER) (test code = 1 /100 WBC 0-0 413) NEUTROPHILS RELATIVE PERCENT (BEAKER) (test code 65 % = 429) LYMPHOCYTES RELATIVE PERCENT (BEAKER) (test code 22 % = 430) MONOCYTES RELATIVE PERCENT (BEAKER) (test code = 10 % 431) EOSINOPHILS RELATIVE PERCENT (BEAKER) (test code 2 % = 432) BASOPHILS RELATIVE PERCENT (BEAKER) (test code = 0 % 437) NEUTROPHILS ABSOLUTE COUNT (BEAKER) (test code = 12.09 K/ L 1.56-6.13 670) LYMPHOCYTES ABSOLUTE COUNT (BEAKER) (test code = 4.02 K/ L 1.18-3.74 414) MONOCYTES ABSOLUTE COUNT (BEAKER) (test code = 1.90 K/ L 0 .24-0.36 415) EOSINOPHILS ABSOLUTE COUNT (BEAKER) (test code = 0.41 K/ L 0.04-0.36 416) BASOPHILS ABSOLUTE COUNT (BEAKER) (test code = 0.05 K/ L 0 .01-0.08 417) IMMATURE GRANULOCYTES-RELATIVE PERCENT (BEAKER) 0 % 0-1 (test code = 2801) (MANUAL DIFFERENTIAL)2017-11-16 09:20:00 Test Item Value Reference Range Comments TOTAL COUNTED (BEAKER) (test code = 1351) WBC MORPHOLOGY (BEAKER) (test code = 487) Normal PLT MORPHOLOGY (BEAKER) (test code = 486) Normal POLYCHROMATOPHILLIC RBCS(BEAKER) (test code = 1+ few 478) SICKLE CELLS (BEAKER) (test code = 767) 1+ few TARGET CELLS (BEAKER) (test code = 480) 2+ moderate CALCIUM, [id number] 07:28:00 Test Item Value Reference Range Comments CALCIUM IONIZED (BEAKER) (test code = 698) 0.97 mmol/L 1.12- 1.27 PH, BLOOD (BEAKER) (test code = 1810) 7.45 [id number] 05:48:00 Test Item Value Reference Range Comments PHOSPHORUS (BEAKER) (test code = 604) 4.8 mg/dL 2.3-4.7 [id number] 05:48:00 Test Item Value Reference Range Comments MAGNESIUM (BEAKER) (test code = 627) 1.6 mg/dL 1.6-2.6 BASIC METABOLIC [id number] 05:48:00 Test Item Value Reference Range Comments SODIUM (BEAKER) (test 139 meq/L 136-145 code = 381) POTASSIUM (BEAKER) (test 3.9 meq/L 3.5-5.1 code = 379) CHLORIDE (BEAKER) (test 98 meq/L 98-107 code = 382) CO2 (BEAKER) (test code = 32 meq/L 22-29 355) BLOOD UREA NITROGEN 23 mg/dL 7-21 (BEAKER) (test code = 354) CREATININE (BEAKER) (test 1.10 mg/dL 0.57-1.25 code = 358) GLUCOSE RANDOM (BEAKER) 115 mg/dL 70-105 (test code = 652) CALCIUM (BEAKER) (test 9.0 mg/dL 8.4-10.2 code = 697) EGFR (BEAKER) (test code 67 mL/min/1.73 sq m EST IMATED GFR IS NOT = 1092) ACCURATE CREA TININE CLEARANCE IN PRE DICTING GLOMERULAR FILTR ATION RATE. ESTIMATED GFR IS NOT APPLICABLE F OR DIALYSIS PATIENT S. URINALYSIS W/ [id number] 19:14:00 Test Item Value Reference Range Comments COLOR (BEAKER) (test code = 470) Yellow CLARITY (BEAKER) (test code = 469) Clear SPECIFIC GRAVITY UA (BEAKER) (test code = 468) 1.006 1 .001-1.035 PH UA (BEAKER) (test code = 467) 7.5 5.0-8.0 PROTEIN UA (BEAKER) (test code = 464) Negative Negative GLUCOSE UA (BEAKER) (test code = 365) Negative Negative KETONES UA (BEAKER) (test code = 371) Negative Negative BILIRUBIN UA (BEAKER) (test code = 462) Negative Negative BLOOD UA (BEAKER) (test code = 461) Trace Negative NITRITE UA (BEAKER) (test code = 465) Negative Negative LEUKOCYTE ESTERASE UA (BEAKER) (test code = Small Nega tive 466) UROBILINOGEN UA (BEAKER) (test code = 463) 0.2 mg/dL 0.2-1 .0 RBC UA (BEAKER) (test code = 519) < /HPF WBC UA (BEAKER) (test code = 520) 7 /HPF BACTERIA (BEAKER) (test code = 517) Rare SQUAMOUS EPITHELIAL (BEAKER) (test code = 516) 1 /HPF SOURCE(BEAKER) (test code = 2795) Urine, Voided [id number] 13:26:00 Test Item Value Reference Range Comments LIPASE (BEAKER) (test code = 749) 95 U/L 8-78 RAD, ABDOMEN/KUB, 1 VIEW [id number] 12:43:00Reason for exam:->abdominal painFINAL REPORT Abdomen one [...] mild lung base opacities. Signed: Anselmo Cain Verified Date/Time: 11/15/2017 12:43:04 Reading Location: [facility] Radiology Reading Room CBC W/PLT COUNT & AUTO [id number] 10:00:00 Test Item Value Reference Range Comments WHITE BLOOD CELL COUNT (BEAKER) (test code = 18.8 K/ L 3.5 -10.5 775) RED BLOOD CELL COUNT (BEAKER) (test code = 761) 1.83 M/ L 3.93-5.22 HEMOGLOBIN (BEAKER) (test code = 410) 5.4 GM/DL 11.2-15.7 HEMATOCRIT (BEAKER) (test code = 411) 16.7 % 34.1-44.9 MEAN CORPUSCULAR VOLUME (BEAKER) (test code = 91.3 fL 79 .4-94.8 753) MEAN CORPUSCULAR HEMOGLOBIN (BEAKER) (test code 29.5 pg 25.6-32.2 = 751) MEAN CORPUSCULAR HEMOGLOBIN CONC (BEAKER) (test 32.3 GM/DL 32.2-35.5 code = 752) RED CELL DISTRIBUTION WIDTH (BEAKER) (test code 21.7 % 11.7-14.4 = 412) PLATELET COUNT (BEAKER) (test code = 756) 340 K/CU MM 150-45 0 MEAN PLATELET VOLUME (BEAKER) (test code = 754) 11.3 fL 9.4-12.3 NUCLEATED RED BLOOD CELLS (BEAKER) (test code = 2 /100 WBC 0-0 413) NEUTROPHILS RELATIVE PERCENT (BEAKER) (test code 65 % = 429) LYMPHOCYTES RELATIVE PERCENT (BEAKER) (test code 23 % = 430) MONOCYTES RELATIVE PERCENT (BEAKER) (test code = 10 % 431) EOSINOPHILS RELATIVE PERCENT (BEAKER) (test code 1 % = 432) BASOPHILS RELATIVE PERCENT (BEAKER) (test code = 0 % 437) NEUTROPHILS ABSOLUTE COUNT (BEAKER) (test code = 12.25 K/ L 1.56-6.13 670) LYMPHOCYTES ABSOLUTE COUNT (BEAKER) (test code = 4.31 K/ L 1.18-3.74 414) MONOCYTES ABSOLUTE COUNT (BEAKER) (test code = 1.88 K/ L 0 .24-0.36 415) EOSINOPHILS ABSOLUTE COUNT (BEAKER) (test code = 0.26 K/ L 0.04-0.36 416) BASOPHILS ABSOLUTE COUNT (BEAKER) (test code = 0.02 K/ L 0 .01-0.08 417) IMMATURE GRANULOCYTES-RELATIVE PERCENT (BEAKER) 1 % 0-1 (test code = 2801) (MANUAL DIFFERENTIAL)2017-11-15 10:00:00 Test Item Value Reference Range Comments TOTAL COUNTED (BEAKER) (test code = 1351) ATYPICAL LYMPHS(BEAKER) (test code = 1678) Present LARGE PLT(BEAKER) (test code = 2156) Present HYPOCHROMIA (BEAKER) (test code = 963) 1+ few POLYCHROMATOPHILLIC RBCS(BEAKER) (test code = 478) 1+ few SICKLE CELLS (BEAKER) (test code = 767) 1+ few TARGET CELLS (BEAKER) (test code = 480) 1+ few U/S, ENDOVAGINAL (EV)2017-11-15 09:03:00Reason for exam:->ovarian complex cysts on CTFINAL REPORT TECHNIQUE: Transvaginal grayscale ultrasound of the pelvis with color Doppler and spectral Doppler ultrasound of the ovaries. INDICATION: 37-year-old woman with complex ovarian cyst on recent CT. COMPARISON: Abdomen and pelvis CT 11/08/2017. FINDINGS: UTERUS: Prior h ysterectomy. OVARIES/ADNEXA: The right ovary measures 2.6 x [...] dermoid. Signed: Funmilayo Gonzalez MDReport Verified Date/Time: 11/15/2017 09:03:15 Reading Location: [address] Ultrasound Reading Room CBC W/PLT COUNT & AUTO [id number] 08:32:00 Test Item Value Reference Range Comments WHITE BLOOD CELL COUNT (BEAKER) (test code = 19.8 K/ L 3.5 -10.5 775) RED BLOOD CELL COUNT (BEAKER) (test code = 761) 1.89 M/ L 3.93-5.22 HEMOGLOBIN (BEAKER) (test code = 410) 5.6 GM/DL 11.2-15.7 HEMATOCRIT (BEAKER) (test code = 411) 17.2 % 34.1-44.9 MEAN CORPUSCULAR VOLUME (BEAKER) (test code = 91.0 fL 79 .4-94.8 753) MEAN CORPUSCULAR HEMOGLOBIN (BEAKER) (test code 29.6 pg 25.6-32.2 = 751) MEAN CORPUSCULAR HEMOGLOBIN CONC (BEAKER) (test 32.6 GM/DL 32.2-35.5 code = 752) RED CELL DISTRIBUTION WIDTH (BEAKER) (test code 21.4 % 11.7-14.4 = 412) PLATELET COUNT (BEAKER) (test code = 756) 366 K/CU MM 150-45 0 MEAN PLATELET VOLUME (BEAKER) (test code = 754) 11.6 fL 9.4-12.3 NUCLEATED RED BLOOD CELLS (BEAKER) (test code = 2 /100 WBC 0-0 413) NEUTROPHILS RELATIVE PERCENT (BEAKER) (test code 70 % = 429) LYMPHOCYTES RELATIVE PERCENT (BEAKER) (test code 18 % = 430) MONOCYTES RELATIVE PERCENT (BEAKER) (test code = 10 % 431) EOSINOPHILS RELATIVE PERCENT (BEAKER) (test code 1 % = 432) BASOPHILS RELATIVE PERCENT (BEAKER) (test code = 0 % 437) NEUTROPHILS ABSOLUTE COUNT (BEAKER) (test code = 13.93 K/ L 1.56-6.13 670) LYMPHOCYTES ABSOLUTE COUNT (BEAKER) (test code = 3.51 K/ L 1.18-3.74 414) MONOCYTES ABSOLUTE COUNT (BEAKER) (test code = 2.03 K/ L 0 .24-0.36 415) EOSINOPHILS ABSOLUTE COUNT (BEAKER) (test code = 0.23 K/ L 0.04-0.36 416) BASOPHILS ABSOLUTE COUNT (BEAKER) (test code = 0.02 K/ L 0 .01-0.08 417) IMMATURE GRANULOCYTES-RELATIVE PERCENT (BEAKER) 0 % 0-1 (test code = 2801) [id number] 06:16:00 Test Item Value Reference Range Comments PHOSPHORUS (BEAKER) (test code = 604) 4.6 mg/dL 2.3-4.7 [id number] 06:16:00 Test Item Value Reference Range Comments MAGNESIUM (BEAKER) (test code = 627) 1.6 mg/dL 1.6-2.6 BASIC METABOLIC [id number] 06:16:00 Test Item Value Reference Range Comments SODIUM (BEAKER) (test 139 meq/L 136-145 code = 381) POTASSIUM (BEAKER) (test 3.9 meq/L 3.5-5.1 code = 379) CHLORIDE (BEAKER) (test 97 meq/L 98-107 code = 382) CO2 (BEAKER) (test code = 33 meq/L 22-29 355) BLOOD UREA NITROGEN 24 mg/dL 7-21 (BEAKER) (test code = 354) CREATININE (BEAKER) (test 1.15 mg/dL 0.57-1.25 code = 358) GLUCOSE RANDOM (BEAKER) 104 mg/dL 70-105 (test code = 652) CALCIUM (BEAKER) (test 9.1 mg/dL 8.4-10.2 code = 697) EGFR (BEAKER) (test code 64 mL/min/1.73 sq m EST IMATED GFR IS NOT = 1092) ACCURATE CREA TININE CLEARANCE IN PRE DICTING GLOMERULAR FILTR ATION RATE. ESTIMATED GFR IS NOT APPLICABLE F OR DIALYSIS PATIENT S. HEPATIC FUNCTION [id number] 06:16:00 Test Item Value Reference Range Comments TOTAL PROTEIN (BEAKER) (test code = 770) 8.2 gm/dL 6.0-8.3 ALBUMIN (BEAKER) (test code = 1145) 2.9 g/dL 3.5-5.0 BILIRUBIN TOTAL (BEAKER) (test code = 377) 1.1 mg/dL 0.2-1 .2 BILIRUBIN DIRECT (BEAKER) (test code = 706) 0.5 mg/dL 0.1- 0.5 ALKALINE PHOSPHATASE (BEAKER) (test code = 346) 164 U/L 40-150 AST (SGOT) (BEAKER) (test code = 353) 76 U/L 5-34 ALT (SGPT) (BEAKER) (test code = 347) 34 U/L 6-55 CALCIUM, [id number] 06:00:00 Test Item Value Reference Range Comments CALCIUM IONIZED (BEAKER) (test code = 698) 0.93 mmol/L 1.12- 1.27 PH, BLOOD (BEAKER) (test code = 1810) 7.52 URINALYSIS W/ [id number] 18:32:00 Test Item Value Reference Range Comments COLOR (BEAKER) (test code = 470) Light Yellow CLARITY (BEAKER) (test code = 469) Clear SPECIFIC GRAVITY UA (BEAKER) (test code = 468) 1.006 1 .001-1.035 PH UA (BEAKER) (test code = 467) 7.0 5.0-8.0 PROTEIN UA (BEAKER) (test code = 464) Negative Negative GLUCOSE UA (BEAKER) (test code = 365) Negative Negative KETONES UA (BEAKER) (test code = 371) Negative Negative BILIRUBIN UA (BEAKER) (test code = 462) Negative Negative BLOOD UA (BEAKER) (test code = 461) Trace Negative NITRITE UA (BEAKER) (test code = 465) Negative Negative LEUKOCYTE ESTERASE UA (BEAKER) (test code = Small Nega tive 466) UROBILINOGEN UA (BEAKER) (test code = 463) 0.2 mg/dL 0.2-1 .0 RBC UA (BEAKER) (test code = 519) 1 /HPF WBC UA (BEAKER) (test code = 520) 7 /HPF BACTERIA (BEAKER) (test code = 517) Rare MUCUS (BEAKER) (test code = 1574) Rare SQUAMOUS EPITHELIAL (BEAKER) (test code = 516) 4 /HPF SOURCE(BEAKER) (test code = 2795) Urine, Voided CALCIUM, [id number] 07:19:00 Test Item Value Reference Range Comments CALCIUM IONIZED (BEAKER) (test code = 698) 1.03 mmol/L 1.12- 1.27 PH, BLOOD (BEAKER) (test code = 1810) 7.40 CBC W/PLT COUNT & AUTO [id number] 06:26:00 Test Item Value Reference Range Comments WHITE BLOOD CELL COUNT (BEAKER) (test code = 18.5 K/ L 3.5 -10.5 775) RED BLOOD CELL COUNT (BEAKER) (test code = 761) 2.02 M/ L 3.93-5.22 HEMOGLOBIN (BEAKER) (test code = 410) 6.0 GM/DL 11.2-15.7 HEMATOCRIT (BEAKER) (test code = 411) 18.5 % 34.1-44.9 MEAN CORPUSCULAR VOLUME (BEAKER) (test code = 91.6 fL 79 .4-94.8 753) MEAN CORPUSCULAR HEMOGLOBIN (BEAKER) (test code 29.7 pg 25.6-32.2 = 751) MEAN CORPUSCULAR HEMOGLOBIN CONC (BEAKER) (test 32.4 GM/DL 32.2-35.5 code = 752) RED CELL DISTRIBUTION WIDTH (BEAKER) (test code 21.9 % 11.7-14.4 = 412) PLATELET COUNT (BEAKER) (test code = 756) 337 K/CU MM 150-45 0 MEAN PLATELET VOLUME (BEAKER) (test code = 754) 11.7 fL 9.4-12.3 NUCLEATED RED BLOOD CELLS (BEAKER) (test code = 4 /100 WBC 0-0 413) NEUTROPHILS RELATIVE PERCENT (BEAKER) (test code 76 % = 429) LYMPHOCYTES RELATIVE PERCENT (BEAKER) (test code 16 % = 430) MONOCYTES RELATIVE PERCENT (BEAKER) (test code = 6 % 431) EOSINOPHILS RELATIVE PERCENT (BEAKER) (test code 1 % = 432) BASOPHILS RELATIVE PERCENT (BEAKER) (test code = 0 % 437) NEUTROPHILS ABSOLUTE COUNT (BEAKER) (test code = 13.98 K/ L 1.56-6.13 670) LYMPHOCYTES ABSOLUTE COUNT (BEAKER) (test code = 3.02 K/ L 1.18-3.74 414) MONOCYTES ABSOLUTE COUNT (BEAKER) (test code = 1.13 K/ L 0 .24-0.36 415) EOSINOPHILS ABSOLUTE COUNT (BEAKER) (test code = 0.09 K/ L 0.04-0.36 416) BASOPHILS ABSOLUTE COUNT (BEAKER) (test code = 0.05 K/ L 0 .01-0.08 417) IMMATURE GRANULOCYTES-RELATIVE PERCENT (BEAKER) 1 % 0-1 (test code = 2801) [id number] 06:21:00 Test Item Value Reference Range Comments PHOSPHORUS (BEAKER) (test code = 604) 4.3 mg/dL 2.3-4.7 [id number] 06:21:00 Test Item Value Reference Range Comments MAGNESIUM (BEAKER) (test code = 627) 2.1 mg/dL 1.6-2.6 BASIC METABOLIC [id number] 06:21:00 Test Item Value Reference Range Comments SODIUM (BEAKER) (test 139 meq/L 136-145 code = 381) POTASSIUM (BEAKER) (test 4.0 meq/L 3.5-5.1 code = 379) CHLORIDE (BEAKER) (test 99 meq/L 98-107 code = 382) CO2 (BEAKER) (test code = 31 meq/L 22-29 355) BLOOD UREA NITROGEN 23 mg/dL 7-21 (BEAKER) (test code = 354) CREATININE (BEAKER) (test 1.29 mg/dL 0.57-1.25 code = 358) GLUCOSE RANDOM (BEAKER) 116 mg/dL 70-105 (test code = 652) CALCIUM (BEAKER) (test 8.8 mg/dL 8.4-10.2 code = 697) EGFR (BEAKER) (test code 56 mL/min/1.73 sq m EST IMATED GFR IS NOT = 1092) ACCURATE CREA TININE CLEARANCE IN PRE DICTING GLOMERULAR FILTR ATION RATE. ESTIMATED GFR IS NOT APPLICABLE F OR DIALYSIS PATIENT S. B-TYPE NATRIURETIC FACTOR (BNP)2017-11-13 07:27:00 Test Item Value Reference Range Comments B-TYPE NATRIURETIC PEPTIDE (BEAKER) (test code = 166 pg/mL 0-100 700) [id number] 07:26:00 Test Item Value Reference Range Comments PHOSPHORUS (BEAKER) (test code = 604) 4.6 mg/dL 2.3-4.7 [id number] 07:26:00 Test Item Value Reference Range Comments MAGNESIUM (BEAKER) (test code = 627) 1.6 mg/dL 1.6-2.6 BASIC METABOLIC [id number] 07:26:00 Test Item Value Reference Range Comments SODIUM (BEAKER) (test 139 meq/L 136-145 code = 381) POTASSIUM (BEAKER) (test 3.5 meq/L 3.5-5.1 code = 379) CHLORIDE (BEAKER) (test 101 meq/L 98-107 code = 382) CO2 (BEAKER) (test code = 32 meq/L 22-29 355) BLOOD UREA NITROGEN 14 mg/dL 7-21 (BEAKER) (test code = 354) CREATININE (BEAKER) (test 1.09 mg/dL 0.57-1.25 code = 358) GLUCOSE RANDOM (BEAKER) 92 mg/dL 70-105 (test code = 652) CALCIUM (BEAKER) (test 8.5 mg/dL 8.4-10.2 code = 697) EGFR (BEAKER) (test code 68 mL/min/1.73 sq m EST IMATED GFR IS NOT = 1092) ACCURATE CREA TININE CLEARANCE IN PRE DICTING GLOMERULAR FILTR ATION RATE. ESTIMATED GFR IS NOT APPLICABLE F OR DIALYSIS PATIENT S. CBC W/PLT COUNT & AUTO [id number] 07:23:00 Test Item Value Reference Range Comments WHITE BLOOD CELL COUNT (BEAKER) (test code = 18.4 K/ L 3.5 -10.5 775) RED BLOOD CELL COUNT (BEAKER) (test code = 761) 2.03 M/ L 3.93-5.22 HEMOGLOBIN (BEAKER) (test code = 410) 6.0 GM/DL 11.2-15.7 HEMATOCRIT (BEAKER) (test code = 411) 18.8 % 34.1-44.9 MEAN CORPUSCULAR VOLUME (BEAKER) (test code = 92.6 fL 79 .4-94.8 753) MEAN CORPUSCULAR HEMOGLOBIN (BEAKER) (test code 29.6 pg 25.6-32.2 = 751) MEAN CORPUSCULAR HEMOGLOBIN CONC (BEAKER) (test 31.9 GM/DL 32.2-35.5 code = 752) RED CELL DISTRIBUTION WIDTH (BEAKER) (test code 22.9 % 11.7-14.4 = 412) PLATELET COUNT (BEAKER) (test code = 756) 302 K/CU MM 150-45 0 MEAN PLATELET VOLUME (BEAKER) (test code = 754) 11.3 fL 9.4-12.3 NUCLEATED RED BLOOD CELLS (BEAKER) (test code = 7 /100 WBC 0-0 413) NEUTROPHILS RELATIVE PERCENT (BEAKER) (test code 74 % = 429) LYMPHOCYTES RELATIVE PERCENT (BEAKER) (test code 18 % = 430) MONOCYTES RELATIVE PERCENT (BEAKER) (test code = 7 % 431) EOSINOPHILS RELATIVE PERCENT (BEAKER) (test code 0 % = 432) BASOPHILS RELATIVE PERCENT (BEAKER) (test code = 0 % 437) NEUTROPHILS ABSOLUTE COUNT (BEAKER) (test code = 13.58 K/ L 1.56-6.13 670) LYMPHOCYTES ABSOLUTE COUNT (BEAKER) (test code = 3.24 K/ L 1.18-3.74 414) MONOCYTES ABSOLUTE COUNT (BEAKER) (test code = 1.23 K/ L 0 .24-0.36 415) EOSINOPHILS ABSOLUTE COUNT (BEAKER) (test code = 0.07 K/ L 0.04-0.36 416) BASOPHILS ABSOLUTE COUNT (BEAKER) (test code = 0.05 K/ L 0 .01-0.08 417) IMMATURE GRANULOCYTES-RELATIVE PERCENT (BEAKER) 1 % 0-1 (test code = 2801) CALCIUM, [id number] 07:08:00 Test Item Value Reference Range Comments CALCIUM IONIZED (BEAKER) (test code = 698) 1.03 mmol/L 1.12- 1.27 PH, BLOOD (BEAKER) (test code = 1810) 7.38 CBC W/PLT COUNT & AUTO [id number] 08:23:00 Test Item Value Reference Range Comments WHITE BLOOD CELL COUNT (BEAKER) (test code = 20.4 K/ L 3.5 -10.5 775) RED BLOOD CELL COUNT (BEAKER) (test code = 761) 2.08 M/ L 3.93-5.22 HEMOGLOBIN (BEAKER) (test code = 410) 6.4 GM/DL 11.2-15.7 HEMATOCRIT (BEAKER) (test code = 411) 19.7 % 34.1-44.9 MEAN CORPUSCULAR VOLUME (BEAKER) (test code = 94.7 fL 79 .4-94.8 753) MEAN CORPUSCULAR HEMOGLOBIN (BEAKER) (test code 30.8 pg 25.6-32.2 = 751) MEAN CORPUSCULAR HEMOGLOBIN CONC (BEAKER) (test 32.5 GM/DL 32.2-35.5 code = 752) RED CELL DISTRIBUTION WIDTH (BEAKER) (test code 24.3 % 11.7-14.4 = 412) PLATELET COUNT (BEAKER) (test code = 756) 290 K/CU MM 150-45 0 MEAN PLATELET VOLUME (BEAKER) (test code = 754) 11.5 fL 9.4-12.3 NUCLEATED RED BLOOD CELLS (BEAKER) (test code = 19 /100 WBC 0-0 413) NEUTROPHILS RELATIVE PERCENT (BEAKER) (test code 75 % = 429) LYMPHOCYTES RELATIVE PERCENT (BEAKER) (test code 16 % = 430) MONOCYTES RELATIVE PERCENT (BEAKER) (test code = 8 % 431) EOSINOPHILS RELATIVE PERCENT (BEAKER) (test code 0 % = 432) BASOPHILS RELATIVE PERCENT (BEAKER) (test code = 0 % 437) NEUTROPHILS ABSOLUTE COUNT (BEAKER) (test code = 15.32 K/ L 1.56-6.13 670) LYMPHOCYTES ABSOLUTE COUNT (BEAKER) (test code = 3.24 K/ L 1.18-3.74 414) MONOCYTES ABSOLUTE COUNT (BEAKER) (test code = 1.61 K/ L 0 .24-0.36 415) EOSINOPHILS ABSOLUTE COUNT (BEAKER) (test code = 0.05 K/ L 0.04-0.36 416) BASOPHILS ABSOLUTE COUNT (BEAKER) (test code = 0.04 K/ L 0 .01-0.08 417) IMMATURE GRANULOCYTES-RELATIVE PERCENT (BEAKER) 0 % 0-1 (test code = 2801) (MANUAL DIFFERENTIAL)[id number] 08:23:00 Test Item Value Reference Range Comments TOTAL COUNTED (BEAKER) (test code = 1351) WBC MORPHOLOGY (BEAKER) (test code = 487) Normal LARGE PLT(BEAKER) (test code = 2156) Present HYPOCHROMIA (BEAKER) (test code = 963) 1+ few POLYCHROMATOPHILLIC RBCS(BEAKER) (test code = 478) 1+ few SICKLE CELLS (BEAKER) (test code = 767) 1+ few TARGET CELLS (BEAKER) (test code = 480) 1+ few [id number] 08:11:00 Test Item Value Reference Range Comments PHOSPHORUS (BEAKER) (test code = 604) 4.3 mg/dL 2.3-4.7 [id number] 08:11:00 Test Item Value Reference Range Comments MAGNESIUM (BEAKER) (test code = 627) 1.3 mg/dL 1.6-2.6 BASIC METABOLIC [id number] 08:11:00 Test Item Value Reference Range Comments SODIUM (BEAKER) (test 140 meq/L 136-145 code = 381) POTASSIUM (BEAKER) (test 3.4 meq/L 3.5-5.1 code = 379) CHLORIDE (BEAKER) (test 103 meq/L 98-107 code = 382) CO2 (BEAKER) (test code = 27 meq/L 22-29 355) BLOOD UREA NITROGEN 15 mg/dL 7-21 (BEAKER) (test code = 354) CREATININE (BEAKER) (test 1.10 mg/dL 0.57-1.25 code = 358) GLUCOSE RANDOM (BEAKER) 91 mg/dL 70-105 (test code = 652) CALCIUM (BEAKER) (test 8.5 mg/dL 8.4-10.2 code = 697) EGFR (BEAKER) (test code 67 mL/min/1.73 sq m EST IMATED GFR IS NOT = 1092) ACCURATE CREA TININE CLEARANCE IN PRE DICTING GLOMERULAR FILTR ATION RATE. ESTIMATED GFR IS NOT APPLICABLE F OR DIALYSIS PATIENT S. CALCIUM, [id number] 07:19:00 Test Item Value Reference Range Comments CALCIUM IONIZED (BEAKER) (test code = 698) 0.98 mmol/L 1.12- 1.27 PH, BLOOD (BEAKER) (test code = 1810) 7.39 BLOOD [id number] 00:00:00 Test Item Value Reference Range Comments CULTURE (BEAKER) (test code = 1095) No growth in 5 days CBC W/PLT COUNT & AUTO [id number] 13:18:00 Test Item Value Reference Range Comments WHITE BLOOD CELL COUNT (BEAKER) (test code = 20.7 K/ L 3.5 -10.5 775) RED BLOOD CELL COUNT (BEAKER) (test code = 761) 2.12 M/ L 3.93-5.22 HEMOGLOBIN (BEAKER) (test code = 410) 6.7 GM/DL 11.2-15.7 HEMATOCRIT (BEAKER) (test code = 411) 20.4 % 34.1-44.9 MEAN CORPUSCULAR VOLUME (BEAKER) (test code = 96.2 fL 79 .4-94.8 753) MEAN CORPUSCULAR HEMOGLOBIN (BEAKER) (test code 31.6 pg 25.6-32.2 = 751) MEAN CORPUSCULAR HEMOGLOBIN CONC (BEAKER) (test 32.8 GM/DL 32.2-35.5 code = 752) RED CELL DISTRIBUTION WIDTH (BEAKER) (test code 25.9 % 11.7-14.4 = 412) PLATELET COUNT (BEAKER) (test code = 756) 262 K/CU MM 150-45 0 MEAN PLATELET VOLUME (BEAKER) (test code = 754) 11.2 fL 9.4-12.3 NUCLEATED RED BLOOD CELLS (BEAKER) (test code = 40 /100 WBC 0-0 413) NEUTROPHILS RELATIVE PERCENT (BEAKER) (test code 76 % = 429) LYMPHOCYTES RELATIVE PERCENT (BEAKER) (test code 16 % = 430) MONOCYTES RELATIVE PERCENT (BEAKER) (test code = 8 % 431) EOSINOPHILS RELATIVE PERCENT (BEAKER) (test code 0 % = 432) BASOPHILS RELATIVE PERCENT (BEAKER) (test code = 0 % 437) NEUTROPHILS ABSOLUTE COUNT (BEAKER) (test code = 15.60 K/ L 1.56-6.13 670) LYMPHOCYTES ABSOLUTE COUNT (BEAKER) (test code = 3.23 K/ L 1.18-3.74 414) MONOCYTES ABSOLUTE COUNT (BEAKER) (test code = 1.54 K/ L 0 .24-0.36 415) EOSINOPHILS ABSOLUTE COUNT (BEAKER) (test code = 0.02 K/ L 0.04-0.36 416) BASOPHILS ABSOLUTE COUNT (BEAKER) (test code = 0.05 K/ L 0 .01-0.08 417) IMMATURE GRANULOCYTES-RELATIVE PERCENT (BEAKER) 1 % 0-1 (test code = 2801) (MANUAL DIFFERENTIAL)2017-11-11 13:18:00 Test Item Value Reference Range Comments TOTAL COUNTED (BEAKER) (test code = 1351) WBC MORPHOLOGY (BEAKER) (test code = 487) Normal LARGE PLT(BEAKER) (test code = 2156) Present POLYCHROMATOPHILLIC RBCS(BEAKER) (test code = 478) 1+ few SICKLE CELLS (BEAKER) (test code = 767) 1+ few TARGET CELLS (BEAKER) (test code = 480) 1+ few [id number] 08:05:00 Test Item Value Reference Range Comments PHOSPHORUS (BEAKER) (test code = 604) 5.0 mg/dL 2.3-4.7 [id number] 08:05:00 Test Item Value Reference Range Comments MAGNESIUM (BEAKER) (test code = 627) 1.6 mg/dL 1.6-2.6 BASIC METABOLIC [id number] 08:05:00 Test Item Value Reference Range Comments SODIUM (BEAKER) (test 140 meq/L 136-145 code = 381) POTASSIUM (BEAKER) (test 3.7 meq/L 3.5-5.1 code = 379) CHLORIDE (BEAKER) (test 107 meq/L 98-107 code = 382) CO2 (BEAKER) (test code = 24 meq/L 22-29 355) BLOOD UREA NITROGEN 19 mg/dL 7-21 (BEAKER) (test code = 354) CREATININE (BEAKER) (test 1.23 mg/dL 0.57-1.25 code = 358) GLUCOSE RANDOM (BEAKER) 96 mg/dL 70-105 (test code = 652) CALCIUM (BEAKER) (test 8.5 mg/dL 8.4-10.2 code = 697) EGFR (BEAKER) (test code 59 mL/min/1.73 sq m EST IMATED GFR IS NOT = 1092) ACCURATE CREA TININE CLEARANCE IN PRE DICTING GLOMERULAR FILTR ATION RATE. ESTIMATED GFR IS NOT APPLICABLE F OR DIALYSIS PATIENT S. CALCIUM, [id number] 06:38:00 Test Item Value Reference Range Comments CALCIUM IONIZED (BEAKER) (test code = 698) 1.07 mmol/L 1.12- 1.27 PH, BLOOD (BEAKER) (test code = 1810) 7.31 CBC W/PLT COUNT & AUTO [id number] 14:53:00 Test Item Value Reference Range Comments WHITE BLOOD CELL COUNT (BEAKER) (test code = 21.8 K/ L 3.5 -10.5 775) RED BLOOD CELL COUNT (BEAKER) (test code = 761) 2.17 M/ L 3.93-5.22 HEMOGLOBIN (BEAKER) (test code = 410) 6.8 GM/DL 11.2-15.7 HEMATOCRIT (BEAKER) (test code = 411) 21.3 % 34.1-44.9 MEAN CORPUSCULAR VOLUME (BEAKER) (test code = 98.2 fL 79 .4-94.8 753) MEAN CORPUSCULAR HEMOGLOBIN (BEAKER) (test code 31.3 pg 25.6-32.2 = 751) MEAN CORPUSCULAR HEMOGLOBIN CONC (BEAKER) (test 31.9 GM/DL 32.2-35.5 code = 752) RED CELL DISTRIBUTION WIDTH (BEAKER) (test code 27.6 % 11.7-14.4 = 412) PLATELET COUNT (BEAKER) (test code = 756) 244 K/CU MM 150-45 0 MEAN PLATELET VOLUME (BEAKER) (test code = 754) 11.4 fL 9.4-12.3 NUCLEATED RED BLOOD CELLS (BEAKER) (test code = 80 /100 WBC 0-0 413) NEUTROPHILS RELATIVE PERCENT (BEAKER) (test code 82 % = 429) LYMPHOCYTES RELATIVE PERCENT (BEAKER) (test code 7 % = 430) MONOCYTES RELATIVE PERCENT (BEAKER) (test code = 10 % 431) EOSINOPHILS RELATIVE PERCENT (BEAKER) (test code 0 % = 432) BASOPHILS RELATIVE PERCENT (BEAKER) (test code = 0 % 437) NEUTROPHILS ABSOLUTE COUNT (BEAKER) (test code = 17.85 K/ L 1.56-6.13 670) LYMPHOCYTES ABSOLUTE COUNT (BEAKER) (test code = 1.60 K/ L 1.18-3.74 414) MONOCYTES ABSOLUTE COUNT (BEAKER) (test code = 2.14 K/ L 0 .24-0.36 415) EOSINOPHILS ABSOLUTE COUNT (BEAKER) (test code = 0.03 K/ L 0.04-0.36 416) BASOPHILS ABSOLUTE COUNT (BEAKER) (test code = 0.03 K/ L 0 .01-0.08 417) IMMATURE GRANULOCYTES-RELATIVE PERCENT (BEAKER) 1 % 0-1 (test code = 2801) (MANUAL DIFFERENTIAL)2017-11-10 14:53:00 Test Item Value Reference Range Comments TOTAL COUNTED (BEAKER) (test code = 1351) WBC MORPHOLOGY (BEAKER) (test code = 487) Normal LARGE PLT(BEAKER) (test code = 2156) Present SCHISTOCYTES (BEAKER) (test code = 765) 1+ few ACANTHOCYTES (BEAKER) (test code = 471) 1+ few ANISOCYTOSIS (BEAKER) (test code = 961) 2+ moderate HYPOCHROMIA (BEAKER) (test code = 963) 2+ moderate MACROCYTES (BEAKER) (test code = 964) 3+ many MICROCYTES (BEAKER) (test code = 965) 2+ moderate OVALOCYTES (BEAKER) (test code = 477) 1+ few POIKILOCYTES (BEAKER) (test code = 966) 3+ many POLYCHROMATOPHILLIC RBCS(BEAKER) (test code = 2+ moderate 478) SICKLE CELLS (BEAKER) (test code = 767) 2+ moderate TARGET CELLS (BEAKER) (test code = 480) 1+ few BASIC METABOLIC [id number] 08:54:00 Test Item Value Reference Range Comments SODIUM (BEAKER) (test 140 meq/L 136-145 code = 381) POTASSIUM (BEAKER) (test 4.0 meq/L 3.5-5.1 code = 379) CHLORIDE (BEAKER) (test 109 meq/L 98-107 code = 382) CO2 (BEAKER) (test code = 19 meq/L 22-29 355) BLOOD UREA NITROGEN 21 mg/dL 7-21 (BEAKER) (test code = 354) CREATININE (BEAKER) (test 1.27 mg/dL 0.57-1.25 code = 358) GLUCOSE RANDOM (BEAKER) 122 mg/dL 70-105 (test code = 652) CALCIUM (BEAKER) (test 8.6 mg/dL 8.4-10.2 code = 697) EGFR (BEAKER) (test code 57 mL/min/1.73 sq m EST IMATED GFR IS NOT = 1092) ACCURATE CREA TININE CLEARANCE IN PRE DICTING GLOMERULAR FILTR ATION RATE. ESTIMATED GFR IS NOT APPLICABLE F OR DIALYSIS PATIENT S. [id number] 08:54:00 Test Item Value Reference Range Comments MAGNESIUM (BEAKER) (test code = 627) 1.5 mg/dL 1.6-2.6 [id number] 08:54:00 Test Item Value Reference Range Comments PHOSPHORUS (BEAKER) (test code = 604) 4.5 mg/dL 2.3-4.7 COMPREHENSIVE METABOLIC [id number] 08:54:00 Test Item Value Reference Range Comments TOTAL PROTEIN (BEAKER) 8.2 gm/dL 6.0-8.3 (test code = 770) ALBUMIN (BEAKER) (test 3.1 g/dL 3.5-5.0 code = 1145) ALKALINE PHOSPHATASE 154 U/L 40-150 (BEAKER) (test code = 346) BILIRUBIN TOTAL (BEAKER) 1.4 mg/dL 0.2-1.2 (test code = 377) SODIUM (BEAKER) (test code 140 meq/L 136-145 = 381) POTASSIUM (BEAKER) (test 4.0 meq/L 3.5-5.1 code = 379) CHLORIDE (BEAKER) (test 109 meq/L 98-107 code = 382) CO2 (BEAKER) (test code = 19 meq/L 22-29 355) BLOOD UREA NITROGEN 21 mg/dL 7-21 (BEAKER) (test code = 354) CREATININE (BEAKER) (test 1.27 mg/dL 0.57-1.25 code = 358) GLUCOSE RANDOM (BEAKER) 122 mg/dL 70-105 (test code = 652) CALCIUM (BEAKER) (test 8.6 mg/dL 8.4-10.2 code = 697) AST (SGOT) (BEAKER) (test 72 U/L 5-34 code = 353) ALT (SGPT) (BEAKER) (test 50 U/L 6-55 code = 347) EGFR (BEAKER) (test code = 57 mL/min/1.73 sq m E STIMATED GFR IS NOT 1092) ACCURATE CREA TININE CLEARANCE IN PRE DICTING GLOMERULAR FILTR ATION RATE. ESTIMATED GFR IS NOT APPLICABLE F OR DIALYSIS PATIENT S. CALCIUM, [id number] 07:21:00 Test Item Value Reference Range Comments CALCIUM IONIZED (BEAKER) (test code = 698) 1.04 mmol/L 1.12- 1.27 PH, BLOOD (BEAKER) (test code = 1810) 7.39 CBC W/PLT COUNT & AUTO [id number] 12:10:00 Test Item Value Reference Range Comments WHITE BLOOD CELL COUNT (BEAKER) (test code = 20.8 K/ L 3.5 -10.5 775) RED BLOOD CELL COUNT (BEAKER) (test code = 761) 2.11 M/ L 3.93-5.22 HEMOGLOBIN (BEAKER) (test code = 410) 6.6 GM/DL 11.2-15.7 HEMATOCRIT (BEAKER) (test code = 411) 20.4 % 34.1-44.9 MEAN CORPUSCULAR VOLUME (BEAKER) (test code = 96.7 fL 79 .4-94.8 753) MEAN CORPUSCULAR HEMOGLOBIN (BEAKER) (test code 31.3 pg 25.6-32.2 = 751) MEAN CORPUSCULAR HEMOGLOBIN CONC (BEAKER) (test 32.4 GM/DL 32.2-35.5 code = 752) RED CELL DISTRIBUTION WIDTH (BEAKER) (test code 27.2 % 11.7-14.4 = 412) PLATELET COUNT (BEAKER) (test code = 756) 237 K/CU MM 150-45 0 MEAN PLATELET VOLUME (BEAKER) (test code = 754) 10.7 fL 9.4-12.3 NUCLEATED RED BLOOD CELLS (BEAKER) (test code = 98 /100 WBC 0-0 413) NEUTROPHILS RELATIVE PERCENT (BEAKER) (test code 82 % = 429) LYMPHOCYTES RELATIVE PERCENT (BEAKER) (test code 6 % = 430) MONOCYTES RELATIVE PERCENT (BEAKER) (test code = 11 % 431) EOSINOPHILS RELATIVE PERCENT (BEAKER) (test code 0 % = 432) BASOPHILS RELATIVE PERCENT (BEAKER) (test code = 0 % 437) NEUTROPHILS ABSOLUTE COUNT (BEAKER) (test code = 16.91 K/ L 1.56-6.13 670) LYMPHOCYTES ABSOLUTE COUNT (BEAKER) (test code = 1.31 K/ L 1.18-3.74 414) MONOCYTES ABSOLUTE COUNT (BEAKER) (test code = 2.37 K/ L 0 .24-0.36 415) EOSINOPHILS ABSOLUTE COUNT (BEAKER) (test code = 0.01 K/ L 0.04-0.36 416) BASOPHILS ABSOLUTE COUNT (BEAKER) (test code = 0.05 K/ L 0 .01-0.08 417) IMMATURE GRANULOCYTES-RELATIVE PERCENT (BEAKER) 1 % 0-1 (test code = 2801) (MANUAL DIFFERENTIAL)2017-11-09 12:10:00 Test Item Value Reference Range Comments TOTAL COUNTED (BEAKER) (test code = 1351) WBC MORPHOLOGY (BEAKER) (test code = 487) Normal PLT MORPHOLOGY (BEAKER) (test code = 486) Normal ANISOCYTOSIS (BEAKER) (test code = 961) 2+ moderate MATTHEWS-JOLLY BODIES (BEAKER) (test code = 475) 1+ few POIKILOCYTES (BEAKER) (test code = 966) 2+ moderate POLYCHROMATOPHILLIC RBCS(BEAKER) (test code = 1+ few 478) SICKLE CELLS (BEAKER) (test code = 767) 2+ moderate TARGET CELLS (BEAKER) (test code = 480) 1+ few CALCIUM, [id number] 07:44:00 Test Item Value Reference Range Comments CALCIUM IONIZED (BEAKER) (test code = 698) 1.16 mmol/L 1.12- 1.27 PH, BLOOD (BEAKER) (test code = 1810) 7.25 B-TYPE NATRIURETIC FACTOR (BNP)2017-11-09 07:43:00 Test Item Value Reference Range Comments B-TYPE NATRIURETIC PEPTIDE (BEAKER) (test code = 903 pg/mL 0-100 700) [id number] 07:27:00 Test Item Value Reference Range Comments PHOSPHORUS (BEAKER) (test code = 604) 4.4 mg/dL 2.3-4.7 [id number] 07:27:00 Test Item Value Reference Range Comments MAGNESIUM (BEAKER) (test code = 627) 1.7 mg/dL 1.6-2.6 COMPREHENSIVE METABOLIC [id number] 07:27:00 Test Item Value Reference Range Comments TOTAL PROTEIN (BEAKER) 7.8 gm/dL 6.0-8.3 (test code = 770) ALBUMIN (BEAKER) (test 3.2 g/dL 3.5-5.0 code = 1145) ALKALINE PHOSPHATASE 165 U/L 40-150 (BEAKER) (test code = 346) BILIRUBIN TOTAL (BEAKER) 1.3 mg/dL 0.2-1.2 (test code = 377) SODIUM (BEAKER) (test code 143 meq/L 136-145 = 381) POTASSIUM (BEAKER) (test 4.2 meq/L 3.5-5.1 code = 379) CHLORIDE (BEAKER) (test 112 meq/L 98-107 code = 382) CO2 (BEAKER) (test code = 23 meq/L 22-29 355) BLOOD UREA NITROGEN 29 mg/dL 7-21 (BEAKER) (test code = 354) CREATININE (BEAKER) (test 1.54 mg/dL 0.57-1.25 code = 358) GLUCOSE RANDOM (BEAKER) 108 mg/dL 70-105 (test code = 652) CALCIUM (BEAKER) (test 9.1 mg/dL 8.4-10.2 code = 697) AST (SGOT) (BEAKER) (test 110 U/L 5-34 code = 353) ALT (SGPT) (BEAKER) (test 64 U/L 6-55 code = 347) EGFR (BEAKER) (test code = 46 mL/min/1.73 sq m E STIMATED GFR IS NOT 1092) ACCURATE CREA TININE CLEARANCE IN PRE DICTING GLOMERULAR FILTR ATION RATE. ESTIMATED GFR IS NOT APPLICABLE F OR DIALYSIS PATIENT S. BASIC METABOLIC [id number] 07:27:00 Test Item Value Reference Range Comments SODIUM (BEAKER) (test 143 meq/L 136-145 code = 381) POTASSIUM (BEAKER) (test 4.2 meq/L 3.5-5.1 code = 379) CHLORIDE (BEAKER) (test 112 meq/L 98-107 code = 382) CO2 (BEAKER) (test code = 23 meq/L 22-29 355) BLOOD UREA NITROGEN 29 mg/dL 7-21 (BEAKER) (test code = 354) CREATININE (BEAKER) (test 1.54 mg/dL 0.57-1.25 code = 358) GLUCOSE RANDOM (BEAKER) 108 mg/dL 70-105 (test code = 652) CALCIUM (BEAKER) (test 9.1 mg/dL 8.4-10.2 code = 697) EGFR (BEAKER) (test code 46 mL/min/1.73 sq m EST IMATED GFR IS NOT = 1092) ACCURATE CREA TININE CLEARANCE IN PRE DICTING GLOMERULAR FILTR ATION RATE. ESTIMATED GFR IS NOT APPLICABLE F OR DIALYSIS PATIENT S. RAD, CHEST, 1 VIEW, NON [id number] 20:41:00Reason for exam:->edemaShould this be performed at [...] MDReport Verified Date/Time: 11/08/2017 20:41:24 Reading Location: [address] Reading Room EOSINOPHIL SMEAR, [id number] 12:49:00 Test Item Value Reference Range Comments EOSINOPHIL SMEAR, URINE (BEAKER) (test code = No EOS seen No EOS seen 1850) CBC W/PLT COUNT & AUTO [id number] 10:40:00 Test Item Value Reference Range Comments WHITE BLOOD CELL COUNT (BEAKER) (test code = 18.6 K/ L 3.5 -10.5 775) RED BLOOD CELL COUNT (BEAKER) (test code = 761) 2.21 M/ L 3.93-5.22 HEMOGLOBIN (BEAKER) (test code = 410) 6.8 GM/DL 11.2-15.7 HEMATOCRIT (BEAKER) (test code = 411) 20.6 % 34.1-44.9 MEAN CORPUSCULAR VOLUME (BEAKER) (test code = 93.2 fL 79 .4-94.8 753) MEAN CORPUSCULAR HEMOGLOBIN (BEAKER) (test code 30.8 pg 25.6-32.2 = 751) MEAN CORPUSCULAR HEMOGLOBIN CONC (BEAKER) (test 33.0 GM/DL 32.2-35.5 code = 752) RED CELL DISTRIBUTION WIDTH (BEAKER) (test code 25.5 % 11.7-14.4 = 412) PLATELET COUNT (BEAKER) (test code = 756) 255 K/CU MM 150-45 0 MEAN PLATELET VOLUME (BEAKER) (test code = 754) 10.6 fL 9.4-12.3 NUCLEATED RED BLOOD CELLS (BEAKER) (test code = 87 /100 WBC 0-0 413) NEUTROPHILS RELATIVE PERCENT (BEAKER) (test code 70 % = 429) LYMPHOCYTES RELATIVE PERCENT (BEAKER) (test code 14 % = 430) MONOCYTES RELATIVE PERCENT (BEAKER) (test code = 14 % 431) EOSINOPHILS RELATIVE PERCENT (BEAKER) (test code 0 % = 432) BASOPHILS RELATIVE PERCENT (BEAKER) (test code = 0 % 437) NEUTROPHILS ABSOLUTE COUNT (BEAKER) (test code = 12.98 K/ L 1.56-6.13 670) LYMPHOCYTES ABSOLUTE COUNT (BEAKER) (test code = 2.67 K/ L 1.18-3.74 414) MONOCYTES ABSOLUTE COUNT (BEAKER) (test code = 2.65 K/ L 0 .24-0.36 415) EOSINOPHILS ABSOLUTE COUNT (BEAKER) (test code = 0.07 K/ L 0.04-0.36 416) BASOPHILS ABSOLUTE COUNT (BEAKER) (test code = 0.05 K/ L 0 .01-0.08 417) IMMATURE GRANULOCYTES-RELATIVE PERCENT (BEAKER) 1 % 0-1 (test code = 2801) (MANUAL DIFFERENTIAL)2017-11-08 10:40:00 Test Item Value Reference Range Comments TOTAL COUNTED (BEAKER) (test code = 1351) WBC MORPHOLOGY (BEAKER) (test code = 487) Normal LARGE PLT(BEAKER) (test code = 2156) Present POLYCHROMATOPHILLIC RBCS(BEAKER) (test code = 2+ moderate 478) SICKLE CELLS (BEAKER) (test code = 767) 3+ many TARGET CELLS (BEAKER) (test code = 480) 1+ few CT, [id number] 08:29:00FINAL REPORT HISTORY : Abdominal pain, unspecified [...] upper abdomen, there is some nonspecific edema identified.This extends [...] or pelvis. No findings of any bowel obstruction . The small bowel is within normal limits. [...] Correlation with amylase and lipase values is ad vised to exclude acute pancreatitis. 7. Complex heterogeneous lesions in the ovaries bilaterally. Correlation with pelvic ultrasound is advised. 8. Small fat-containing umbilical hernia. There is a hypodensity in the subcutaneous fat in the supraumbilical region that could represent a small fluid collection. Signed: Dami Muniz [facility] Verified Date/Time: 11/08/2017 08:29:54 Reading Location: [facility] Reading Room - [place] [id number] Electronically signed by: DAMI MUNIZ M.D. on11/08/2017 08:29 AMBASIC METABOLIC [id number] 08:14:00 Test Item Value Reference Range Comments SODIUM (BEAKER) (test 141 meq/L 136-145 code = 381) POTASSIUM (BEAKER) (test 4.4 meq/L 3.5-5.1 code = 379) CHLORIDE (BEAKER) (test 111 meq/L 98-107 code = 382) CO2 (BEAKER) (test code = 17 meq/L 22-29 355) BLOOD UREA NITROGEN 37 mg/dL 7-21 (BEAKER) (test code = 354) CREATININE (BEAKER) (test 2.07 mg/dL 0.57-1.25 code = 358) GLUCOSE RANDOM (BEAKER) 101 mg/dL 70-105 (test code = 652) CALCIUM (BEAKER) (test 8.9 mg/dL 8.4-10.2 code = 697) EGFR (BEAKER) (test code 32 mL/min/1.73 sq m EST IMATED GFR IS NOT = 1092) ACCURATE CREA TININE CLEARANCE IN PRE DICTING GLOMERULAR FILTR ATION RATE. ESTIMATED GFR IS NOT APPLICABLE F OR DIALYSIS PATIENT S. COMPREHENSIVE METABOLIC [id number] 08:14:00 Test Item Value Reference Range Comments TOTAL PROTEIN (BEAKER) 8.6 gm/dL 6.0-8.3 (test code = 770) ALBUMIN (BEAKER) (test 3.4 g/dL 3.5-5.0 code = 1145) ALKALINE PHOSPHATASE 155 U/L 40-150 (BEAKER) (test code = 346) BILIRUBIN TOTAL (BEAKER) 1.7 mg/dL 0.2-1.2 (test code = 377) SODIUM (BEAKER) (test code 141 meq/L 136-145 = 381) POTASSIUM (BEAKER) (test 4.4 meq/L 3.5-5.1 code = 379) CHLORIDE (BEAKER) (test 111 meq/L 98-107 code = 382) CO2 (BEAKER) (test code = 17 meq/L 22-29 355) BLOOD UREA NITROGEN 37 mg/dL 7-21 (BEAKER) (test code = 354) CREATININE (BEAKER) (test 2.07 mg/dL 0.57-1.25 code = 358) GLUCOSE RANDOM (BEAKER) 101 mg/dL 70-105 (test code = 652) CALCIUM (BEAKER) (test 8.9 mg/dL 8.4-10.2 code = 697) AST (SGOT) (BEAKER) (test 144 U/L 5-34 code = 353) ALT (SGPT) (BEAKER) (test 70 U/L 6-55 code = 347) EGFR (BEAKER) (test code = 32 mL/min/1.73 sq m E STIMATED GFR IS NOT 1092) ACCURATE CREA TININE CLEARANCE IN PRE DICTING GLOMERULAR FILTR ATION RATE. ESTIMATED GFR IS NOT APPLICABLE F OR DIALYSIS PATIENT S. PROTEIN, RANDOM [id number] 07:49:00 Test Item Value Reference Range Comments PROTEIN, URINE (BEAKER) (test code = 1569) 24 mg/dL 0-14 CREATININE, RANDOM [id number] 07:47:00 Test Item Value Reference Range Comments CREATININE URINE (BEAKER) (test code = 375) 46.0 mg/dL Reference Range: No NormalsSODIUM, RANDOM [id number] 07:47:00 Test Item Value Reference Range Comments SODIUM URINE (BEAKER) (test code = 243) 65 meq/L Reference Range: No NormalsU/S, ABDOMINAL, [id number] 19:58:00Reason for exam:->GRAYSON, abdominal painShould this be performed at the bedside?->No FINAL REPORT Abdominal ultrasound Clinical History: Abdominal pain Discussion: Sonographic evaluation of the the abdomen is performed. The liver is enlarged and measures 23.5 cmin length. The liver echotexture is normal, without focal mass. There is no intra or extrahepatic brigido iary dilatation. The common bile duct measures 7 [...] 2. Status post splenectomy. 3. Hepatomegaly. Signed: Sarah Grullon MDReport Verified Date/Time: 11/07/2017 19:58:17 Reading Location: [address] Consult Reading Room LACTIC ACID, VENOUS, WHOLE [id number] 16:11:00 Test Item Value Reference Range Comments LACTATE BLOOD VENOUS (2) 0.9 mmol/L 0.5-2.2 Specime n slightly hemolyzed (BEAKER) (test code = 2872) Effective 12/22/2015: Units/Reference Range ChangeNew: 0.5-2.2 mmol/L Previous: 5-20 mg/dLCBC W/PLT COUNT & AUTO [id number] 10:20:00 Test Item Value Reference Range Comments WHITE BLOOD CELL COUNT (BEAKER) (test code = 23.2 K/ L 3.5 -10.5 775) RED BLOOD CELL COUNT (BEAKER) (test code = 761) 1.84 M/ L 3.93-5.22 HEMOGLOBIN (BEAKER) (test code = 410) 5.8 GM/DL 11.2-15.7 HEMATOCRIT (BEAKER) (test code = 411) 17.3 % 34.1-44.9 MEAN CORPUSCULAR VOLUME (BEAKER) (test code = 94.0 fL 79 .4-94.8 753) MEAN CORPUSCULAR HEMOGLOBIN (BEAKER) (test code 31.5 pg 25.6-32.2 = 751) MEAN CORPUSCULAR HEMOGLOBIN CONC (BEAKER) (test 33.5 GM/DL 32.2-35.5 code = 752) RED CELL DISTRIBUTION WIDTH (BEAKER) (test code 24.1 % 11.7-14.4 = 412) PLATELET COUNT (BEAKER) (test code = 756) 249 K/CU MM 150-45 0 MEAN PLATELET VOLUME (BEAKER) (test code = 754) 10.8 fL 9.4-12.3 NUCLEATED RED BLOOD CELLS (BEAKER) (test code = 48 /100 WBC 0-0 413) IMMATURE GRANULOCYTES-RELATIVE PERCENT (BEAKER) 2 % 0-1 (test code = 2801) (MANUAL DIFFERENTIAL)2017-11-07 10:20:00 Test Item Value Reference Range Comments NEUTROPHILS - REL (DIFF) (BEAKER) (test code = 68 % 1359) LYMPHOCYTES - REL (DIFF) (BEAKER) (test code = 27 % 1360) MONOCYTES - REL (DIFF) (BEAKER) (test code = 5 % 1361) EOSINOPHILS - REL (DIFF) (BEAKER) (test code = 0 % 1362) BASOPHILS - REL (DIFF) (BEAKER) (test code = 0 % 1363) NEUTROPHILS - ABS (DIFF) (BEAKER) (test code = 15.78 K/ L 1 .80-8.00 1365) LYMPHOCYTES - ABS (DIFF) (BEAKER) (test code = 6.26 K/ L 1 .48-4.50 1366) MONOCYTES - ABS (DIFF) (BEAKER) (test code = 1.16 K/ L 0.0 0-1.30 1367) EOSINOPHILS - ABS (DIFF) (BEAKER) (test code = 0.00 K/ L 0 .00-0.50 1368) BASOPHILS - ABS (DIFF) (BEAKER) (test code = 0.00 K/ L 0.0 0-0.20 1369) TOTAL COUNTED (BEAKER) (test code = 1351) 100 MANUAL NRBC PER 100 CELLS (BEAKER) (test code = 51 /100 WBC 0-0 1353) WBC MORPHOLOGY (BEAKER) (test code = 487) Normal PLT MORPHOLOGY (BEAKER) (test code = 486) Normal ANISOCYTOSIS (BEAKER) (test code = 961) 3+ many POLYCHROMATOPHILLIC RBCS(BEAKER) (test code = 2+ moderate 478) SICKLE CELLS (BEAKER) (test code = 767) 3+ many TARGET CELLS (BEAKER) (test code = 480) 1+ few BASIC METABOLIC [id number] 06:28:00 Test Item Value Reference Range Comments SODIUM (BEAKER) (test 132 meq/L 136-145 code = 381) POTASSIUM (BEAKER) (test 4.4 meq/L 3.5-5.1 code = 379) CHLORIDE (BEAKER) (test 109 meq/L 98-107 code = 382) CO2 (BEAKER) (test code = 20 meq/L 22-29 355) BLOOD UREA NITROGEN 39 mg/dL 7-21 (BEAKER) (test code = 354) CREATININE (BEAKER) (test 2.20 mg/dL 0.57-1.25 code = 358) GLUCOSE RANDOM (BEAKER) 123 mg/dL 70-105 (test code = 652) CALCIUM (BEAKER) (test 8.7 mg/dL 8.4-10.2 code = 697) EGFR (BEAKER) (test code 30 mL/min/1.73 sq m EST IMATED GFR IS NOT = 1092) ACCURATE CREA TININE CLEARANCE IN PRE DICTING GLOMERULAR FILTR ATION RATE. ESTIMATED GFR IS NOT APPLICABLE F OR DIALYSIS PATIENT S. COMPREHENSIVE METABOLIC [id number] 18:37:00 Test Item Value Reference Range Comments TOTAL PROTEIN (BEAKER) 8.5 gm/dL 6.0-8.3 (test code = 770) ALBUMIN (BEAKER) (test 3.4 g/dL 3.5-5.0 code = 1145) ALKALINE PHOSPHATASE 166 U/L 40-150 (BEAKER) (test code = 346) BILIRUBIN TOTAL (BEAKER) 4.0 mg/dL 0.2-1.2 (test code = 377) SODIUM (BEAKER) (test code 142 meq/L 136-145 = 381) POTASSIUM (BEAKER) (test 4.7 meq/L 3.5-5.1 code = 379) CHLORIDE (BEAKER) (test 110 meq/L 98-107 code = 382) CO2 (BEAKER) (test code = 22 meq/L 22-29 355) BLOOD UREA NITROGEN 35 mg/dL 7-21 (BEAKER) (test code = 354) CREATININE (BEAKER) (test 1.97 mg/dL 0.57-1.25 code = 358) GLUCOSE RANDOM (BEAKER) 119 mg/dL 70-105 (test code = 652) CALCIUM (BEAKER) (test 8.5 mg/dL 8.4-10.2 code = 697) AST (SGOT) (BEAKER) (test 278 U/L 5-34 code = 353) ALT (SGPT) (BEAKER) (test 92 U/L 6-55 code = 347) EGFR (BEAKER) (test code = 34 mL/min/1.73 sq m E STIMATED GFR IS NOT 1092) ACCURATE CREA TININE CLEARANCE IN PRE DICTING GLOMERULAR FILTR ATION RATE. ESTIMATED GFR IS NOT APPLICABLE F OR DIALYSIS PATIENT S. Specimen slightly ictericCBC W/PLT COUNT & AUTO [id number] 14:59:00 Test Item Value Reference Range Comments WHITE BLOOD CELL COUNT (BEAKER) (test code = 24.3 K/ L 3.5 -10.5 775) RED BLOOD CELL COUNT (BEAKER) (test code = 761) 1.73 M/ L 3.93-5.22 HEMOGLOBIN (BEAKER) (test code = 410) 5.5 GM/DL 11.2-15.7 HEMATOCRIT (BEAKER) (test code = 411) 16.7 % 34.1-44.9 MEAN CORPUSCULAR VOLUME (BEAKER) (test code = 96.5 fL 79 .4-94.8 753) MEAN CORPUSCULAR HEMOGLOBIN (BEAKER) (test code 31.8 pg 25.6-32.2 = 751) MEAN CORPUSCULAR HEMOGLOBIN CONC (BEAKER) (test 32.9 GM/DL 32.2-35.5 code = 752) RED CELL DISTRIBUTION WIDTH (BEAKER) (test code 25.8 % 11.7-14.4 = 412) PLATELET COUNT (BEAKER) (test code = 756) 259 K/CU MM 150-45 0 MEAN PLATELET VOLUME (BEAKER) (test code = 754) 11.1 fL 9.4-12.3 NUCLEATED RED BLOOD CELLS (BEAKER) (test code = 29 /100 WBC 0-0 413) IMMATURE GRANULOCYTES-RELATIVE PERCENT (BEAKER) 2 % 0-1 (test code = 2801) (MANUAL DIFFERENTIAL)2017-11-06 14:59:00 Test Item Value Reference Range Comments NEUTROPHILS - REL (DIFF) (BEAKER) (test code = 65 % 1359) LYMPHOCYTES - REL (DIFF) (BEAKER) (test code = 26 % 1360) MONOCYTES - REL (DIFF) (BEAKER) (test code = 8 % 1361) MYELOCYTES-REL (DIFF) (BEAKER) (test code = 1 % 0-0 1594) NEUTROPHILS - ABS (DIFF) (BEAKER) (test code = 15.80 K/ L 1 .80-8.00 1365) LYMPHOCYTES - ABS (DIFF) (BEAKER) (test code = 6.32 K/ L 1 .48-4.50 1366) MONOCYTES - ABS (DIFF) (BEAKER) (test code = 1.94 K/ L 0.0 0-1.30 1367) MYELOCYTES-ABS (DIFF) (BEAKER) (test code = 0.24 K/ L 0.00 -0.00 1593) TOTAL COUNTED (BEAKER) (test code = 1351) 100 MANUAL NRBC PER 100 CELLS (BEAKER) (test code = 34 /100 WBC 0-0 1353) WBC MORPHOLOGY (BEAKER) (test code = 487) Normal PLT MORPHOLOGY (BEAKER) (test code = 486) Normal ANISOCYTOSIS (BEAKER) (test code = 961) 3+ many MATTHEWS-JOLLY BODIES (BEAKER) (test code = 475) Present POIKILOCYTES (BEAKER) (test code = 966) 1+ few POLYCHROMATOPHILLIC RBCS(BEAKER) (test code = 2+ moderate 478) SICKLE CELLS (BEAKER) (test code = 767) 3+ many BASIC METABOLIC [id number] 09:37:00 Test Item Value Reference Range Comments SODIUM (BEAKER) (test 139 meq/L 136-145 code = 381) POTASSIUM (BEAKER) (test 4.5 meq/L 3.5-5.1 code = 379) CHLORIDE (BEAKER) (test 107 meq/L 98-107 code = 382) CO2 (BEAKER) (test code = 19 meq/L 22-29 355) BLOOD UREA NITROGEN 27 mg/dL 7-21 (BEAKER) (test code = 354) CREATININE (BEAKER) (test 1.37 mg/dL 0.57-1.25 code = 358) GLUCOSE RANDOM (BEAKER) 124 mg/dL 70-105 (test code = 652) CALCIUM (BEAKER) (test 8.2 mg/dL 8.4-10.2 code = 697) EGFR (BEAKER) (test code 52 mL/min/1.73 sq m EST IMATED GFR IS NOT = 1092) ACCURATE CREA TININE CLEARANCE IN PRE DICTING GLOMERULAR FILTR ATION RATE. ESTIMATED GFR IS NOT APPLICABLE F OR DIALYSIS PATIENT S. Specimen slightly ictericURINALYSIS W/ [id number] 06:22:00 Test Item Value Reference Range Comments COLOR (BEAKER) (test code = 470) Brown CLARITY (BEAKER) (test code = 469) Cloudy SPECIFIC GRAVITY UA (BEAKER) (test code = 1.015 1.001- 1.035 468) PH UA (BEAKER) (test code = 467) 5.5 5.0-8.0 PROTEIN UA (BEAKER) (test code = 464) 100 mg/dL Negative GLUCOSE UA (BEAKER) (test code = 365) Negative Negative KETONES UA (BEAKER) (test code = 371) Negative Negative BILIRUBIN UA (BEAKER) (test code = 462) Positive Negative BLOOD UA (BEAKER) (test code = 461) Large Negative NITRITE UA (BEAKER) (test code = 465) Negative Negative LEUKOCYTE ESTERASE UA (BEAKER) (test code Trace Negati ve = 466) UROBILINOGEN UA (BEAKER) (test code = 4.0 mg/dL 0.2-1.0 463) RBC UA (BEAKER) (test code = 519) 0 /HPF WBC UA (BEAKER) (test code = 520) 27 /HPF MUCUS (BEAKER) (test code = 1574) Few SQUAMOUS EPITHELIAL (BEAKER) (test code = 11 /HPF 516) SOURCE(BEAKER) (test code = 2795) Urine, Clean Catch BASIC METABOLIC [id number] 10:56:00 Test Item Value Reference Range Comments SODIUM (BEAKER) (test 139 meq/L 136-145 code = 381) POTASSIUM (BEAKER) (test 4.2 meq/L 3.5-5.1 code = 379) CHLORIDE (BEAKER) (test 104 meq/L 98-107 code = 382) CO2 (BEAKER) (test code = 23 meq/L 22-29 355) BLOOD UREA NITROGEN 9 mg/dL 7-21 (BEAKER) (test code = 354) CREATININE (BEAKER) (test 0.66 mg/dL 0.57-1.25 code = 358) GLUCOSE RANDOM (BEAKER) 109 mg/dL 70-105 (test code = 652) CALCIUM (BEAKER) (test 8.6 mg/dL 8.4-10.2 code = 697) EGFR (BEAKER) (test code 121 mL/min/1.73 sq m ES TIMATED GFR IS NOT = 1092) ACCURATE CREA TININE CLEARANCE IN PRE DICTING GLOMERULAR FILTR ATION RATE. ESTIMATED GFR IS NOT APPLICABLE F OR DIALYSIS PATIENT S. Specimen slightly ictericCBC W/PLT COUNT & AUTO [id number] 09:17:00 Test Item Value Reference Range Comments WHITE BLOOD CELL COUNT (BEAKER) (test code = 18.2 K/ L 3.5 -10.5 775) RED BLOOD CELL COUNT (BEAKER) (test code = 761) 2.05 M/ L 3.93-5.22 HEMOGLOBIN (BEAKER) (test code = 410) 6.4 GM/DL 11.2-15.7 HEMATOCRIT (BEAKER) (test code = 411) 19.9 % 34.1-44.9 MEAN CORPUSCULAR VOLUME (BEAKER) (test code = 97.1 fL 79 .4-94.8 753) MEAN CORPUSCULAR HEMOGLOBIN (BEAKER) (test code 31.2 pg 25.6-32.2 = 751) MEAN CORPUSCULAR HEMOGLOBIN CONC (BEAKER) (test 32.2 GM/DL 32.2-35.5 code = 752) RED CELL DISTRIBUTION WIDTH (BEAKER) (test code 25.4 % 11.7-14.4 = 412) PLATELET COUNT (BEAKER) (test code = 756) 227 K/CU MM 150-45 0 MEAN PLATELET VOLUME (BEAKER) (test code = 754) 10.4 fL 9.4-12.3 NUCLEATED RED BLOOD CELLS (BEAKER) (test code = 18 /100 WBC 0-0 413) NEUTROPHILS RELATIVE PERCENT (BEAKER) (test code 57 % = 429) LYMPHOCYTES RELATIVE PERCENT (BEAKER) (test code 24 % = 430) MONOCYTES RELATIVE PERCENT (BEAKER) (test code = 15 % 431) EOSINOPHILS RELATIVE PERCENT (BEAKER) (test code 3 % = 432) BASOPHILS RELATIVE PERCENT (BEAKER) (test code = 0 % 437) NEUTROPHILS ABSOLUTE COUNT (BEAKER) (test code = 10.46 K/ L 1.56-6.13 670) LYMPHOCYTES ABSOLUTE COUNT (BEAKER) (test code = 4.31 K/ L 1.18-3.74 414) MONOCYTES ABSOLUTE COUNT (BEAKER) (test code = 2.72 K/ L 0 .24-0.36 415) EOSINOPHILS ABSOLUTE COUNT (BEAKER) (test code = 0.45 K/ L 0.04-0.36 416) BASOPHILS ABSOLUTE COUNT (BEAKER) (test code = 0.07 K/ L 0 .01-0.08 417) IMMATURE GRANULOCYTES-RELATIVE PERCENT (BEAKER) 1 % 0-1 (test code = 2801) (MANUAL DIFFERENTIAL)2017-11-05 09:17:00 Test Item Value Reference Range Comments TOTAL COUNTED (BEAKER) (test code = 1351) WBC MORPHOLOGY (BEAKER) (test code = 487) Normal PLT MORPHOLOGY (BEAKER) (test code = 486) Normal ANISOCYTOSIS (BEAKER) (test code = 961) 2+ moderate POLYCHROMATOPHILLIC RBCS(BEAKER) (test code = 2+ moderate 478) SICKLE CELLS (BEAKER) (test code = 767) 2+ moderate TARGET CELLS (BEAKER) (test code = 480) 2+ moderate CREATINE KINASE (CK), TOTAL AND [id number] 22:01:00 Test Item Value Reference Range Comments CREATINE KINASE TOTAL (BEAKER) (test 10 U/L 29-200 code = 380) CREATINE KINASE-MB (BEAKER) (test code 0.1 ng/mL 0.0-6.6 = 750) CREATINE KINASE-MB INDEX (BEAKER) (test 1.0 % Unable to Calculate code = 395) CK-MB Reference Range:<6.7 Normal6.7-10.0 Borderline>10.0 AbnormalTROPONIN [id number] 21:16:00 Test Item Value Reference Range Comments TROPONIN I (BEAKER) (test code = 397) < ng/mL 0.00-0.03 Troponin I (TnI) levels [...] and persistent tachyarrhythmia.CBC W/PLT COUNT & AUTO DIFFERENTIAL 2017-06-05 06:49:00 Test Item Value Reference Range Comments WHITE BLOOD CELL COUNT (BEAKER) (test code = 13.3 K/ L 3.5 -10.5 775) RED BLOOD CELL COUNT (BEAKER) (test code = 761) 2.18 M/ L 3.93-5.22 HEMOGLOBIN (BEAKER) (test code = 410) 6.8 GM/DL 11.2-15.7 HEMATOCRIT (BEAKER) (test code = 411) 21.5 % 34.1-44.9 MEAN CORPUSCULAR VOLUME (BEAKER) (test code = 98.6 fL 79 .4-94.8 753) MEAN CORPUSCULAR HEMOGLOBIN (BEAKER) (test code 31.2 pg 25.6-32.2 = 751) MEAN CORPUSCULAR HEMOGLOBIN CONC (BEAKER) (test 31.6 GM/DL 32.2-35.5 code = 752) RED CELL DISTRIBUTION WIDTH (BEAKER) (test code 21.1 % 11.7-14.4 = 412) PLATELET COUNT (BEAKER) (test code = 756) 192 K/CU MM 150-45 0 MEAN PLATELET VOLUME (BEAKER) (test code = 754) 11.4 fL 9.4-12.3 NUCLEATED RED BLOOD CELLS (BEAKER) (test code = 1 /100 WBC 0-0 413) NEUTROPHILS RELATIVE PERCENT (BEAKER) (test code 51 % = 429) LYMPHOCYTES RELATIVE PERCENT (BEAKER) (test code 30 % = 430) MONOCYTES RELATIVE PERCENT (BEAKER) (test code = 16 % 431) EOSINOPHILS RELATIVE PERCENT (BEAKER) (test code 2 % = 432) BASOPHILS RELATIVE PERCENT (BEAKER) (test code = 0 % 437) NEUTROPHILS ABSOLUTE COUNT (BEAKER) (test code = 6.84 K/ L 1.56-6.13 670) LYMPHOCYTES ABSOLUTE COUNT (BEAKER) (test code = 4.06 K/ L 1.18-3.74 414) MONOCYTES ABSOLUTE COUNT (BEAKER) (test code = 2.12 K/ L 0 .24-0.36 415) EOSINOPHILS ABSOLUTE COUNT (BEAKER) (test code = 0.26 K/ L 0.04-0.36 416) BASOPHILS ABSOLUTE COUNT (BEAKER) (test code = 0.02 K/ L 0 .01-0.08 417) IMMATURE GRANULOCYTES-RELATIVE PERCENT (BEAKER) 0 % 0-1 (test code = 2801) BASIC METABOLIC [id number] 07:06:00 Test Item Value Reference Range Comments SODIUM (BEAKER) (test 138 meq/L 136-145 code = 381) POTASSIUM (BEAKER) (test 4.2 meq/L 3.5-5.1 code = 379) CHLORIDE (BEAKER) (test 103 meq/L 98-107 code = 382) CO2 (BEAKER) (test code = 28 meq/L 22-29 355) BLOOD UREA NITROGEN 11 mg/dL 7-21 (BEAKER) (test code = 354) CREATININE (BEAKER) (test 0.55 mg/dL 0.57-1.25 code = 358) GLUCOSE RANDOM (BEAKER) 95 mg/dL 70-105 (test code = 652) CALCIUM (BEAKER) (test 9.5 mg/dL 8.4-10.2 code = 697) EGFR (BEAKER) (test code 150 mL/min/1.73 sq m ES TIMATED GFR IS NOT = 1092) ACCURATE CREA TININE CLEARANCE IN PRE DICTING GLOMERULAR FILTR ATION RATE. ESTIMATED GFR IS NOT APPLICABLE F OR DIALYSIS PATIENT S. CBC W/PLT COUNT & AUTO [id number] 06:48:00 Test Item Value Reference Range Comments WHITE BLOOD CELL COUNT (BEAKER) (test code = 12.8 K/ L 3.5 -10.5 775) RED BLOOD CELL COUNT (BEAKER) (test code = 761) 2.22 M/ L 3.93-5.22 HEMOGLOBIN (BEAKER) (test code = 410) 7.2 GM/DL 11.2-15.7 HEMATOCRIT (BEAKER) (test code = 411) 21.9 % 34.1-44.9 MEAN CORPUSCULAR VOLUME (BEAKER) (test code = 98.6 fL 79 .4-94.8 753) MEAN CORPUSCULAR HEMOGLOBIN (BEAKER) (test code 32.4 pg 25.6-32.2 = 751) MEAN CORPUSCULAR HEMOGLOBIN CONC (BEAKER) (test 32.9 GM/DL 32.2-35.5 code = 752) RED CELL DISTRIBUTION WIDTH (BEAKER) (test code 21.2 % 11.7-14.4 = 412) PLATELET COUNT (BEAKER) (test code = 756) 176 K/CU MM 150-45 0 MEAN PLATELET VOLUME (BEAKER) (test code = 754) 11.2 fL 9.4-12.3 NUCLEATED RED BLOOD CELLS (BEAKER) (test code = 5 /100 WBC 0-0 413) NEUTROPHILS RELATIVE PERCENT (BEAKER) (test code 49 % = 429) LYMPHOCYTES RELATIVE PERCENT (BEAKER) (test code 31 % = 430) MONOCYTES RELATIVE PERCENT (BEAKER) (test code = 19 % 431) EOSINOPHILS RELATIVE PERCENT (BEAKER) (test code 2 % = 432) BASOPHILS RELATIVE PERCENT (BEAKER) (test code = 0 % 437) NEUTROPHILS ABSOLUTE COUNT (BEAKER) (test code = 6.23 K/ L 1.56-6.13 670) LYMPHOCYTES ABSOLUTE COUNT (BEAKER) (test code = 3.90 K/ L 1.18-3.74 414) MONOCYTES ABSOLUTE COUNT (BEAKER) (test code = 2.37 K/ L 0 .24-0.36 415) EOSINOPHILS ABSOLUTE COUNT (BEAKER) (test code = 0.24 K/ L 0.04-0.36 416) BASOPHILS ABSOLUTE COUNT (BEAKER) (test code = 0.01 K/ L 0 .01-0.08 417) IMMATURE GRANULOCYTES-RELATIVE PERCENT (BEAKER) 0 % 0-1 (test code = 2801) (MANUAL DIFFERENTIAL)2017-06-03 06:48:00 Test Item Value Reference Range Comments TOTAL COUNTED (BEAKER) (test code = 1351) WBC MORPHOLOGY (BEAKER) (test code = 487) Normal PLT MORPHOLOGY (BEAKER) (test code = 486) Normal ANISOCYTOSIS (BEAKER) (test code = 961) 3+ many MATTHEWS-JOLLY BODIES (BEAKER) (test code = 475) Present MACROCYTES (BEAKER) (test code = 964) 3+ many SICKLE CELLS (BEAKER) (test code = 767) 1+ few TARGET CELLS (BEAKER) (test code = 480) 1+ few BASIC METABOLIC [id number] 07:33:00 Test Item Value Reference Range Comments SODIUM (BEAKER) (test 138 meq/L 136-145 code = 381) POTASSIUM (BEAKER) (test 4.5 meq/L 3.5-5.1 code = 379) CHLORIDE (BEAKER) (test 102 meq/L 98-107 code = 382) CO2 (BEAKER) (test code = 27 meq/L 22-29 355) BLOOD UREA NITROGEN 11 mg/dL 7-21 (BEAKER) (test code = 354) CREATININE (BEAKER) (test 0.55 mg/dL 0.57-1.25 code = 358) GLUCOSE RANDOM (BEAKER) 85 mg/dL 70-105 (test code = 652) CALCIUM (BEAKER) (test 9.5 mg/dL 8.4-10.2 code = 697) EGFR (BEAKER) (test code 150 mL/min/1.73 sq m ES TIMATED GFR IS NOT = 1092) ACCURATE CREA TININE CLEARANCE IN PRE DICTING GLOMERULAR FILTR ATION RATE. ESTIMATED GFR IS NOT APPLICABLE F OR DIALYSIS PATIENT S. CBC W/PLT COUNT & AUTO [id number] 07:13:00 Test Item Value Reference Range Comments WHITE BLOOD CELL COUNT (BEAKER) (test code = 14.2 K/ L 3.5 -10.5 775) RED BLOOD CELL COUNT (BEAKER) (test code = 761) 2.39 M/ L 3.93-5.22 HEMOGLOBIN (BEAKER) (test code = 410) 7.6 GM/DL 11.2-15.7 HEMATOCRIT (BEAKER) (test code = 411) 23.5 % 34.1-44.9 MEAN CORPUSCULAR VOLUME (BEAKER) (test code = 98.3 fL 79 .4-94.8 753) MEAN CORPUSCULAR HEMOGLOBIN (BEAKER) (test code 31.8 pg 25.6-32.2 = 751) MEAN CORPUSCULAR HEMOGLOBIN CONC (BEAKER) (test 32.3 GM/DL 32.2-35.5 code = 752) RED CELL DISTRIBUTION WIDTH (BEAKER) (test code 21.1 % 11.7-14.4 = 412) PLATELET COUNT (BEAKER) (test code = 756) 173 K/CU MM 150-45 0 MEAN PLATELET VOLUME (BEAKER) (test code = 754) 11.7 fL 9.4-12.3 NUCLEATED RED BLOOD CELLS (BEAKER) (test code = 100 WBC 0-0 413) NEUTROPHILS RELATIVE PERCENT (BEAKER) (test code 53 % = 429) LYMPHOCYTES RELATIVE PERCENT (BEAKER) (test code 27 % = 430) MONOCYTES RELATIVE PERCENT (BEAKER) (test code = 18 % 431) EOSINOPHILS RELATIVE PERCENT (BEAKER) (test code 1 % = 432) BASOPHILS RELATIVE PERCENT (BEAKER) (test code = 0 % 437) NEUTROPHILS ABSOLUTE COUNT (BEAKER) (test code = 7.56 K/ L 1.56-6.13 670) LYMPHOCYTES ABSOLUTE COUNT (BEAKER) (test code = 3.89 K/ L 1.18-3.74 414) MONOCYTES ABSOLUTE COUNT (BEAKER) (test code = 2.52 K/ L 0 .24-0.36 415) EOSINOPHILS ABSOLUTE COUNT (BEAKER) (test code = 0.20 K/ L 0.04-0.36 416) BASOPHILS ABSOLUTE COUNT (BEAKER) (test code = 0.02 K/ L 0 .01-0.08 417) IMMATURE GRANULOCYTES-RELATIVE PERCENT (BEAKER) 0 % 0-1 (test code = 2801) CBC W/PLT COUNT & AUTO [id number] 16:45:00 Test Item Value Reference Range Comments WHITE BLOOD CELL COUNT (BEAKER) (test code = 15.1 K/ L 3.5 -10.5 775) RED BLOOD CELL COUNT (BEAKER) (test code = 761) 2.36 M/ L 3.93-5.22 HEMOGLOBIN (BEAKER) (test code = 410) 7.5 GM/DL 11.2-15.7 HEMATOCRIT (BEAKER) (test code = 411) 23.0 % 34.1-44.9 MEAN CORPUSCULAR VOLUME (BEAKER) (test code = 97.5 fL 79 .4-94.8 753) MEAN CORPUSCULAR HEMOGLOBIN (BEAKER) (test code 31.8 pg 25.6-32.2 = 751) MEAN CORPUSCULAR HEMOGLOBIN CONC (BEAKER) (test 32.6 GM/DL 32.2-35.5 code = 752) RED CELL DISTRIBUTION WIDTH (BEAKER) (test code 20.7 % 11.7-14.4 = 412) PLATELET COUNT (BEAKER) (test code = 756) 179 K/CU MM 150-45 0 MEAN PLATELET VOLUME (BEAKER) (test code = 754) 11.9 fL 9.4-12.3 NUCLEATED RED BLOOD CELLS (BEAKER) (test code = 12 /100 WBC 0-0 413) NEUTROPHILS RELATIVE PERCENT (BEAKER) (test code 53 % = 429) LYMPHOCYTES RELATIVE PERCENT (BEAKER) (test code 27 % = 430) MONOCYTES RELATIVE PERCENT (BEAKER) (test code = 18 % 431) EOSINOPHILS RELATIVE PERCENT (BEAKER) (test code 2 % = 432) BASOPHILS RELATIVE PERCENT (BEAKER) (test code = 0 % 437) NEUTROPHILS ABSOLUTE COUNT (BEAKER) (test code = 8.03 K/ L 1.56-6.13 670) LYMPHOCYTES ABSOLUTE COUNT (BEAKER) (test code = 3.99 K/ L 1.18-3.74 414) MONOCYTES ABSOLUTE COUNT (BEAKER) (test code = 2.65 K/ L 0 .24-0.36 415) EOSINOPHILS ABSOLUTE COUNT (BEAKER) (test code = 0.31 K/ L 0.04-0.36 416) BASOPHILS ABSOLUTE COUNT (BEAKER) (test code = 0.02 K/ L 0 .01-0.08 417) IMMATURE GRANULOCYTES-RELATIVE PERCENT (BEAKER) 0 % 0-1 (test code = 2801) BASIC METABOLIC [id number] 06:17:00 Test Item Value Reference Range Comments SODIUM (BEAKER) (test 138 meq/L 136-145 code = 381) POTASSIUM (BEAKER) (test 4.1 meq/L 3.5-5.1 code = 379) CHLORIDE (BEAKER) (test 100 meq/L 98-107 code = 382) CO2 (BEAKER) (test code = 30 meq/L 22-29 355) BLOOD UREA NITROGEN 11 mg/dL 7-21 (BEAKER) (test code = 354) CREATININE (BEAKER) (test 0.58 mg/dL 0.57-1.25 code = 358) GLUCOSE RANDOM (BEAKER) 90 mg/dL 70-105 (test code = 652) CALCIUM (BEAKER) (test 9.4 mg/dL 8.4-10.2 code = 697) EGFR (BEAKER) (test code 141 mL/min/1.73 sq m ES TIMATED GFR IS NOT = 1092) ACCURATE CREA TININE CLEARANCE IN PRE DICTING GLOMERULAR FILTR ATION RATE. ESTIMATED GFR IS NOT APPLICABLE F OR DIALYSIS PATIENT S. CBC W/PLT COUNT & AUTO [id number] 13:41:00 Test Item Value Reference Range Comments WHITE BLOOD CELL COUNT (BEAKER) (test code = 13.9 K/ L 3.5 -10.5 775) RED BLOOD CELL COUNT (BEAKER) (test code = 761) 2.38 M/ L 3.93-5.22 HEMOGLOBIN (BEAKER) (test code = 410) 7.5 GM/DL 11.2-15.7 HEMATOCRIT (BEAKER) (test code = 411) 23.2 % 34.1-44.9 MEAN CORPUSCULAR VOLUME (BEAKER) (test code = 97.5 fL 79 .4-94.8 753) MEAN CORPUSCULAR HEMOGLOBIN (BEAKER) (test code 31.5 pg 25.6-32.2 = 751) MEAN CORPUSCULAR HEMOGLOBIN CONC (BEAKER) (test 32.3 GM/DL 32.2-35.5 code = 752) RED CELL DISTRIBUTION WIDTH (BEAKER) (test code 20.2 % 11.7-14.4 = 412) PLATELET COUNT (BEAKER) (test code = 756) 171 K/CU MM 150-45 0 MEAN PLATELET VOLUME (BEAKER) (test code = 754) 12.0 fL 9.4-12.3 NUCLEATED RED BLOOD CELLS (BEAKER) (test code = 8 /100 WBC 0-0 413) NEUTROPHILS RELATIVE PERCENT (BEAKER) (test code 57 % = 429) LYMPHOCYTES RELATIVE PERCENT (BEAKER) (test code 23 % = 430) MONOCYTES RELATIVE PERCENT (BEAKER) (test code = 18 % 431) EOSINOPHILS RELATIVE PERCENT (BEAKER) (test code 2 % = 432) BASOPHILS RELATIVE PERCENT (BEAKER) (test code = 0 % 437) NEUTROPHILS ABSOLUTE COUNT (BEAKER) (test code = 7.89 K/ L 1.56-6.13 670) LYMPHOCYTES ABSOLUTE COUNT (BEAKER) (test code = 3.13 K/ L 1.18-3.74 414) MONOCYTES ABSOLUTE COUNT (BEAKER) (test code = 2.52 K/ L 0 .24-0.36 415) EOSINOPHILS ABSOLUTE COUNT (BEAKER) (test code = 0.25 K/ L 0.04-0.36 416) BASOPHILS ABSOLUTE COUNT (BEAKER) (test code = 0.02 K/ L 0 .01-0.08 417) IMMATURE GRANULOCYTES-RELATIVE PERCENT (BEAKER) 1 % 0-1 (test code = 2801) (MANUAL DIFFERENTIAL)2017-05-31 13:41:00 Test Item Value Reference Range Comments TOTAL COUNTED (BEAKER) (test code = 1351) WBC MORPHOLOGY (BEAKER) (test code = 487) Normal PLT MORPHOLOGY (BEAKER) (test code = 486) Normal POLYCHROMATOPHILLIC RBCS(BEAKER) (test code = 2+ moderate 478) SICKLE CELLS (BEAKER) (test code = 767) 1+ few TARGET CELLS (BEAKER) (test code = 480) 2+ moderate URINE [id number] 12:19:00 Test Item Value Reference Range Comments CULTURE (BEAKER) (test code = 20-29,000 col/mL skin valentino 1095) BASIC METABOLIC [id number] 07:23:00 Test Item Value Reference Range Comments SODIUM (BEAKER) (test 136 meq/L 136-145 code = 381) POTASSIUM (BEAKER) (test 3.9 meq/L 3.5-5.1 code = 379) CHLORIDE (BEAKER) (test 97 meq/L 98-107 code = 382) CO2 (BEAKER) (test code = 30 meq/L 22-29 355) BLOOD UREA NITROGEN 9 mg/dL 7-21 (BEAKER) (test code = 354) CREATININE (BEAKER) (test 0.56 mg/dL 0.57-1.25 code = 358) GLUCOSE RANDOM (BEAKER) 100 mg/dL 70-105 (test code = 652) CALCIUM (BEAKER) (test 9.5 mg/dL 8.4-10.2 code = 697) EGFR (BEAKER) (test code 147 mL/min/1.73 sq m ES TIMATED GFR IS NOT = 1092) ACCURATE CREA TININE CLEARANCE IN PRE DICTING GLOMERULAR FILTR ATION RATE. ESTIMATED GFR IS NOT APPLICABLE F OR DIALYSIS PATIENT S. U/S, ABDOMINAL, [id number] 23:52:00Reason for exam:->painShould this be performed at the bedside?->NoFINAL REPORT Abdominal ultrasound dated 05/30/2017 Clinical information:pain Comment: Real-time transabdominal ultrasound was performed. Liver is enlarged and measures 21 cm in length. The echogenicity of the liver is heterogeneous. No focal lesion is noted in the liver. Spleen is noted visualized. Gallbladder is surgically absent. Intrahepatic biliary dilatation is seen. Common bile duct measures 3 mm in diameter. Main portal vein measures 12 mm in diameter. Pancreas is in completely visualized. Right kidney measures 13.2 x 4.7 [...] [place] Verified Date/Time: 05/30/2017 23:52:25 Reading Location: [facility] [id number] Consult Reading Room 11:52 PMCBC W/PLT COUNT & AUTO [id number] 17:30:00 Test Item Value Reference Range Comments WHITE BLOOD CELL COUNT (BEAKER) (test code = 14.0 K/ L 3.5 -10.5 775) RED BLOOD CELL COUNT (BEAKER) (test code = 761) 2.41 M/ L 3.93-5.22 HEMOGLOBIN (BEAKER) (test code = 410) 7.7 GM/DL 11.2-15.7 HEMATOCRIT (BEAKER) (test code = 411) 23.3 % 34.1-44.9 MEAN CORPUSCULAR VOLUME (BEAKER) (test code = 96.7 fL 79 .4-94.8 753) MEAN CORPUSCULAR HEMOGLOBIN (BEAKER) (test code 32.0 pg 25.6-32.2 = 751) MEAN CORPUSCULAR HEMOGLOBIN CONC (BEAKER) (test 33.0 GM/DL 32.2-35.5 code = 752) RED CELL DISTRIBUTION WIDTH (BEAKER) (test code 20.0 % 11.7-14.4 = 412) PLATELET COUNT (BEAKER) (test code = 756) 163 K/CU MM 150-45 0 MEAN PLATELET VOLUME (BEAKER) (test code = 754) 11.7 fL 9.4-12.3 NUCLEATED RED BLOOD CELLS (BEAKER) (test code = 4 /100 WBC 0-0 413) NEUTROPHILS RELATIVE PERCENT (BEAKER) (test code 47 % = 429) LYMPHOCYTES RELATIVE PERCENT (BEAKER) (test code 32 % = 430) MONOCYTES RELATIVE PERCENT (BEAKER) (test code = 18 % 431) EOSINOPHILS RELATIVE PERCENT (BEAKER) (test code 3 % = 432) BASOPHILS RELATIVE PERCENT (BEAKER) (test code = 0 % 437) NEUTROPHILS ABSOLUTE COUNT (BEAKER) (test code = 6.58 K/ L 1.56-6.13 670) LYMPHOCYTES ABSOLUTE COUNT (BEAKER) (test code = 4.40 K/ L 1.18-3.74 414) MONOCYTES ABSOLUTE COUNT (BEAKER) (test code = 2.49 K/ L 0 .24-0.36 415) EOSINOPHILS ABSOLUTE COUNT (BEAKER) (test code = 0.44 K/ L 0.04-0.36 416) BASOPHILS ABSOLUTE COUNT (BEAKER) (test code = 0.02 K/ L 0 .01-0.08 417) IMMATURE GRANULOCYTES-RELATIVE PERCENT (BEAKER) 0 % 0-1 (test code = 2801) BASIC METABOLIC [id number] 06:33:00 Test Item Value Reference Range Comments SODIUM (BEAKER) (test 139 meq/L 136-145 code = 381) POTASSIUM (BEAKER) (test 4.0 meq/L 3.5-5.1 code = 379) CHLORIDE (BEAKER) (test 102 meq/L 98-107 code = 382) CO2 (BEAKER) (test code = 28 meq/L 22-29 355) BLOOD UREA NITROGEN 7 mg/dL 7-21 (BEAKER) (test code = 354) CREATININE (BEAKER) (test 0.54 mg/dL 0.57-1.25 code = 358) GLUCOSE RANDOM (BEAKER) 95 mg/dL 70-105 (test code = 652) CALCIUM (BEAKER) (test 9.6 mg/dL 8.4-10.2 code = 697) EGFR (BEAKER) (test code 153 mL/min/1.73 sq m ES TIMATED GFR IS NOT = 1092) ACCURATE CREA TININE CLEARANCE IN PRE DICTING GLOMERULAR FILTR ATION RATE. ESTIMATED GFR IS NOT APPLICABLE F OR DIALYSIS PATIENT S. CBC W/PLT COUNT & AUTO [id number] 13:41:00 Test Item Value Reference Range Comments WHITE BLOOD CELL COUNT (BEAKER) (test code = 14.6 K/ L 3.5 -10.5 775) RED BLOOD CELL COUNT (BEAKER) (test code = 761) 1.85 M/ L 3.93-5.22 HEMOGLOBIN (BEAKER) (test code = 410) 5.9 GM/DL 11.2-15.7 HEMATOCRIT (BEAKER) (test code = 411) 18.5 % 34.1-44.9 MEAN CORPUSCULAR VOLUME (BEAKER) (test code = 100.0 fL 79 .4-94.8 753) MEAN CORPUSCULAR HEMOGLOBIN (BEAKER) (test code 31.9 pg 25.6-32.2 = 751) MEAN CORPUSCULAR HEMOGLOBIN CONC (BEAKER) (test 31.9 GM/DL 32.2-35.5 code = 752) RED CELL DISTRIBUTION WIDTH (BEAKER) (test code 21.0 % 11.7-14.4 = 412) PLATELET COUNT (BEAKER) (test code = 756) 169 K/CU MM 150-45 0 MEAN PLATELET VOLUME (BEAKER) (test code = 754) 12.1 fL 9.4-12.3 NUCLEATED RED BLOOD CELLS (BEAKER) (test code = 3 /100 WBC 0-0 413) NEUTROPHILS RELATIVE PERCENT (BEAKER) (test code 52 % = 429) LYMPHOCYTES RELATIVE PERCENT (BEAKER) (test code 28 % = 430) MONOCYTES RELATIVE PERCENT (BEAKER) (test code = 16 % 431) EOSINOPHILS RELATIVE PERCENT (BEAKER) (test code 4 % = 432) BASOPHILS RELATIVE PERCENT (BEAKER) (test code = 0 % 437) NEUTROPHILS ABSOLUTE COUNT (BEAKER) (test code = 7.50 K/ L 1.56-6.13 670) LYMPHOCYTES ABSOLUTE COUNT (BEAKER) (test code = 4.08 K/ L 1.18-3.74 414) MONOCYTES ABSOLUTE COUNT (BEAKER) (test code = 2.34 K/ L 0 .24-0.36 415) EOSINOPHILS ABSOLUTE COUNT (BEAKER) (test code = 0.56 K/ L 0.04-0.36 416) BASOPHILS ABSOLUTE COUNT (BEAKER) (test code = 0.02 K/ L 0 .01-0.08 417) IMMATURE GRANULOCYTES-RELATIVE PERCENT (BEAKER) 0 % 0-1 (test code = 2801) (MANUAL DIFFERENTIAL)[id number] 13:41:00 Test Item Value Reference Range Comments TOTAL COUNTED (BEAKER) (test code = 1351) WBC MORPHOLOGY (BEAKER) (test code = 487) Normal PLT MORPHOLOGY (BEAKER) (test code = 486) Normal POLYCHROMATOPHILLIC RBCS(BEAKER) (test code = 2+ moderate 478) SICKLE CELLS (BEAKER) (test code = 767) 1+ few TARGET CELLS (BEAKER) (test code = 480) 2+ moderate BASIC METABOLIC [id number] 07:38:00 Test Item Value Reference Range Comments SODIUM (BEAKER) (test 140 meq/L 136-145 code = 381) POTASSIUM (BEAKER) (test 3.9 meq/L 3.5-5.1 code = 379) CHLORIDE (BEAKER) (test 104 meq/L 98-107 code = 382) CO2 (BEAKER) (test code = 28 meq/L 22-29 355) BLOOD UREA NITROGEN 8 mg/dL 7-21 (BEAKER) (test code = 354) CREATININE (BEAKER) (test 0.56 mg/dL 0.57-1.25 code = 358) GLUCOSE RANDOM (BEAKER) 129 mg/dL 70-105 (test code = 652) CALCIUM (BEAKER) (test 9.2 mg/dL 8.4-10.2 code = 697) EGFR (BEAKER) (test code 147 mL/min/1.73 sq m ES TIMATED GFR IS NOT = 1092) ACCURATE CREA TININE CLEARANCE IN PRE DICTING GLOMERULAR FILTR ATION RATE. ESTIMATED GFR IS NOT APPLICABLE F OR DIALYSIS PATIENT S. CBC W/PLT COUNT & AUTO [id number] 15:40:00 Test Item Value Reference Range Comments WHITE BLOOD CELL COUNT (BEAKER) (test code = 15.5 K/ L 3.5 -10.5 775) RED BLOOD CELL COUNT (BEAKER) (test code = 761) 2.13 M/ L 3.93-5.22 HEMOGLOBIN (BEAKER) (test code = 410) 6.8 GM/DL 11.2-15.7 HEMATOCRIT (BEAKER) (test code = 411) 21.1 % 34.1-44.9 MEAN CORPUSCULAR VOLUME (BEAKER) (test code = 99.1 fL 79 .4-94.8 753) MEAN CORPUSCULAR HEMOGLOBIN (BEAKER) (test code 31.9 pg 25.6-32.2 = 751) MEAN CORPUSCULAR HEMOGLOBIN CONC (BEAKER) (test 32.2 GM/DL 32.2-35.5 code = 752) RED CELL DISTRIBUTION WIDTH (BEAKER) (test code 20.8 % 11.7-14.4 = 412) PLATELET COUNT (BEAKER) (test code = 756) 178 K/CU MM 150-45 0 MEAN PLATELET VOLUME (BEAKER) (test code = 754) 11.9 fL 9.4-12.3 NUCLEATED RED BLOOD CELLS (BEAKER) (test code = 2 /100 WBC 0-0 413) NEUTROPHILS RELATIVE PERCENT (BEAKER) (test code 47 % = 429) LYMPHOCYTES RELATIVE PERCENT (BEAKER) (test code 34 % = 430) MONOCYTES RELATIVE PERCENT (BEAKER) (test code = 16 % 431) EOSINOPHILS RELATIVE PERCENT (BEAKER) (test code 3 % = 432) BASOPHILS RELATIVE PERCENT (BEAKER) (test code = 0 % 437) NEUTROPHILS ABSOLUTE COUNT (BEAKER) (test code = 7.20 K/ L 1.56-6.13 670) LYMPHOCYTES ABSOLUTE COUNT (BEAKER) (test code = 5.22 K/ L 1.18-3.74 414) MONOCYTES ABSOLUTE COUNT (BEAKER) (test code = 2.50 K/ L 0 .24-0.36 415) EOSINOPHILS ABSOLUTE COUNT (BEAKER) (test code = 0.48 K/ L 0.04-0.36 416) BASOPHILS ABSOLUTE COUNT (BEAKER) (test code = 0.02 K/ L 0 .01-0.08 417) IMMATURE GRANULOCYTES-RELATIVE PERCENT (BEAKER) 1 % 0-1 (test code = 2801) (MANUAL DIFFERENTIAL)2017-05-28 15:40:00 Test Item Value Reference Range Comments TOTAL COUNTED (BEAKER) (test code = 1351) WBC MORPHOLOGY (BEAKER) (test code = 487) Normal PLT MORPHOLOGY (BEAKER) (test code = 486) Normal ANISOCYTOSIS (BEAKER) (test code = 961) 2+ moderate POLYCHROMATOPHILLIC RBCS(BEAKER) (test code = 2+ moderate 478) SICKLE CELLS (BEAKER) (test code = 767) 1+ few TARGET CELLS (BEAKER) (test code = 480) 2+ moderate URINALYSIS W/ [id number] 15:13:00 Test Item Value Reference Range Comments COLOR (BEAKER) (test code = 470) Yellow CLARITY (BEAKER) (test code = 469) Clear SPECIFIC GRAVITY UA (BEAKER) (test code = 468) 1.008 1 .001-1.035 PH UA (BEAKER) (test code = 467) 6.0 5.0-8.0 PROTEIN UA (BEAKER) (test code = 464) Negative Negative GLUCOSE UA (BEAKER) (test code = 365) Negative Negative KETONES UA (BEAKER) (test code = 371) Negative Negative BILIRUBIN UA (BEAKER) (test code = 462) Negative Negative BLOOD UA (BEAKER) (test code = 461) Negative Negative NITRITE UA (BEAKER) (test code = 465) Negative Negative LEUKOCYTE ESTERASE UA (BEAKER) (test code = Negative Nega tive 466) UROBILINOGEN UA (BEAKER) (test code = 463) 0.2 mg/dL 0.2-1 .0 RBC UA (BEAKER) (test code = 519) < /HPF WBC UA (BEAKER) (test code = 520) 2 /HPF MUCUS (BEAKER) (test code = 1574) Rare SQUAMOUS EPITHELIAL (BEAKER) (test code = 516) 5 /HPF SOURCE(BEAKER) (test code = 2795) Urine, Voided BASIC METABOLIC [id number] 06:26:00 Test Item Value Reference Range Comments SODIUM (BEAKER) (test 139 meq/L 136-145 code = 381) POTASSIUM (BEAKER) (test 3.8 meq/L 3.5-5.1 code = 379) CHLORIDE (BEAKER) (test 104 meq/L 98-107 code = 382) CO2 (BEAKER) (test code = 30 meq/L 22-29 355) BLOOD UREA NITROGEN 6 mg/dL 7-21 (BEAKER) (test code = 354) CREATININE (BEAKER) (test 0.56 mg/dL 0.57-1.25 code = 358) GLUCOSE RANDOM (BEAKER) 102 mg/dL 70-105 (test code = 652) CALCIUM (BEAKER) (test 9.0 mg/dL 8.4-10.2 code = 697) EGFR (BEAKER) (test code 147 mL/min/1.73 sq m ES TIMATED GFR IS NOT = 1092) ACCURATE CREA TININE CLEARANCE IN PRE DICTING GLOMERULAR FILTR ATION RATE. ESTIMATED GFR IS NOT APPLICABLE F OR DIALYSIS PATIENT S.
--- OUTSIDE RECORDS SUMMARY | 2019-12-22 00:39 | XMS REPORT | Summary of Care ---
:1980 Author Organization [facility] - Health Address [address] [place] [address] Care Team Providers Name Role Phone Naeem Guaman Unavailable Thuy Jay MD Primary Care Provider Encounter Details Date Type Department Care Team Description 08/08/2019 Orders Only [facility] Doctor Unassigned, No 301 [facility] [place] [address] [address] [place] [address] Allergies Active Allergy Reactions Severity Noted Date Comments Leo-Sr-Yay-Zweopvbu-Mhjoq-Nsah Unknown - See comments 10/01/2014 seizure Morphine Unknown - See comments 05/30/2015 Morphine Other - See comments 11/22/2015 Metoclopramide Hcl Other - See comments 07/02/2017 S eizures Butorphanol Tartrate Other - See comments 05/30/2015 [...] as of this encounter (statuses as of 09/02/2019) Medications Medication Sig Dispensed Refills Start Date End Date Status triamcinolone 0 10/27/2015 Activ e acetonide (KENALOG) 0.1 % ointment proMETHazine 0 10/12/2015 Active (PHENERGAN) 25 mg tablet ibuprofen (MOTRIN) 600 0 10/12/2015 Active mg tablet HYDROcodone-acetaminop Take 2 tablets by 0 6 Active hen (NORCO) 10-325 mg mouth 4 (four) tablet times daily. foLIC acid (FOLATE) 1 Take 1 mg by 0 Active mg tablet mouth. mirtazapine 45 mg Take 45 mg by 0 Active tablet mouth. albuterol 90 Inhale 2 Puffs 1 Inhaler 1 01/21/2019 A ctive mcg/actuation every 6 (six) inhalerIndications: hours as needed SOB (shortness of for Wheezing or breath) Shortness of Breath. amLODIPine 2.5 mg Take 1 tablet by 90 tablet 1 01/24/2019 Active tabletIndications: LANE mouth daily. (dyspnea on exertion), Essential hypertension tiZANidine 2 mg Take 1-2 tablets 60 tablet 2 06/10/2019 Active tabletIndications: by mouth every 8 Right arm pain (eight) hours as needed (pain). documented as of this encounter (statuses as of 09/02/2019) Active Problems Problem Noted Date Obesity (BMI 30-39.9) 01/30/2019 Atypical chest pain 01/28/2019 LANE (dyspnea on exertion) 01/27/2019 Sickle cell pain crisis 01/27/2019 History of acute myocardial infarction 07/08/2017 History of CVA (cerebrovascular accident) 07/08/2017 Anxiety Depression Hypertension Seizures Sickle cell anemia documented as of this encounter (statuses as of 09/02/2019) Resolved Problems Problem Noted Date Resolved Date Foot pain, right 11/29/2015 07/08/2017 documented as of this encounter (statuses as of 09/02/2019) Social History Tobacco Use Types Packs/Day Years [...] filedocumented in this encounter Plan of Treatment Health Maintenance Due Date Last Done Comments PAP SMEAR 2000 Breast Cancer Screening 2019 (MAMMOGRAM) DTaP,Tdap,and Td Vaccines (1 - 03/30/2020 P ostponed from 1990 Tdap) (Refused) PNEUMOCOCCAL 0-64 YEARS COMBINED 03/30/2020 Postponed from 1985 SERIES (1 of 3 - PCV13) (Refused ) INFLUENZA VACCINE (#1) 2020 Postponed from 04/20/2019 (Parent Refused) documented as of this encounter Procedures Procedure Name Priority Date/Time Associated Diagnosis Comme [facility] HOME HEALTH 485 Routine 08/08/2019 12: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 [id number] 2017-Pres Medica [facility] HEALTHCARE - HEALTHCARE ent Adv HM O MANAGED DUAL COMPLETE MEDICARE HMO [facility] MEDICAID OF xxxxxxxxx 2019-Pres [phone] [address] [facility] [phone] [place] [address] documented as of this encounter
--- OUTSIDE RECORDS SUMMARY | 2019-12-22 00:39 | XMS REPORT | Summary of Care ---
:[address] [facility] - Health Address [address] [place] [address] Care Team Providers Name Role Phone Naeem Guaman Unavailable Thuy Jay MD Primary Care Provider Encounter Details Date Type Department Care Team Description 08/26/[address] [facility] Doctor Unassigned, No 301 [facility] [place] [address] [address] [place] [address] Allergies Active Allergy Reactions Severity Noted Date Comments Iys-Un-Tmb-Rutzsfyz-Qgwzg-Gjdn Unknown - See comments 10/01/2014 seizure Morphine [...] as of this encounter (statuses as of 09/10/2019) Medications Medication Sig Dispensed Refills Start Date [...] as of this encounter (statuses as of 09/10/2019) Active Problems Problem Noted Date Obesity (BMI 30-39.9) 01/30/2019 Atypical chest pain 01/28/2019 LANE (dyspnea on exertion) 01/27/2019 Sickle cell pain crisis 01/27/2019 History of acute myocardial infarction 07/08/2017 History of CVA (cerebrovascular accident) 07/08/2017 Anxiety Depression Hypertension Seizures Sickle cell anemia documented as of this encounter (statuses as of 09/10/2019) Resolved Problems Problem Noted Date Resolved Date Foot pain, right 11/29/2015 07/08/2017 documented as of this encounter (statuses as of 09/10/2019) Social History Tobacco Use Types Packs/Day Years [...] Procedure Name Priority Date/Time Associated Diagnosis Comme nts HOME HEALTH - OTHER Routine 08/26/2019 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
--- OUTSIDE RECORDS SUMMARY | 2019-12-22 00:39 | XMS REPORT | Summary of Care ---
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 Jayson Jay Procedures CONSULT/REFERRAL HEMATOLOGY MD Thuy [address] [place] [id number] Reason for Visit Reason Comments Referral/consult Encounter Details Date Type Department Care Team Description 10/02/2019 Telephone [facility] Family Jayson Jay R eferral/consult Medicine - [place] VERAS [address] [place] [address] [place] [address] [phone] [address] Allergies Active Allergy Reactions Severity Noted Date Comments Kma-Zh-Uwu-Rtqthuqa-Fkljt-Bpra Unknown - See comments 10/01/2014 seizure Morphine [...] as of this encounter (statuses as of 10/03/2019) Medications Medication Sig Dispensed Refills Start Date [...] as of this encounter (statuses as of 10/03/2019) Active Problems Problem Noted Date Obesity (BMI 30-39.9) 01/30/2019 Atypical chest pain 01/28/2019 LANE (dyspnea on exertion) 01/27/2019 Sickle cell pain crisis 01/27/2019 History of acute myocardial infarction 07/08/2017 History of CVA (cerebrovascular accident) 07/08/2017 Anxiety Depression Hypertension Seizures Sickle cell anemia documented as of this encounter (statuses as of 10/03/2019) Resolved Problems Problem Noted Date Resolved Date Foot pain, right 11/29/2015 07/08/2017 documented as of this encounter (statuses as of 10/03/2019) Social History Tobacco Use Types Packs/Day Years [...] (Parent Refused) documented as of this encounter Results Not on filedocumented in this encounter Visit Diagnoses Diagnosis 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
--- OUTSIDE RECORDS SUMMARY | 2019-12-22 00:40 | XMS REPORT | Summary of Care ---
:1980 Author Organization [facility] - Health Address [address] [place] [address] Care Team Providers Name Role Phone Naeem Guaman Unavailable Thuy Jay MD Primary Care Provider Encounter Details Date Type Department Care Team Description 09/09/2019 Orders Only [facility] Doctor Unassigned, No 301 [facility] [place] [address] [address] [place] [address] Allergies Active Allergy Reactions Severity Noted Date Comments Ppa-Ph-Zka-Bjcfqucc-Pgchg-Olfe Unknown - See comments 10/01/2014 seizure Morphine [...] as of this encounter (statuses as of 09/16/2019) Medications Medication Sig Dispensed Refills Start Date [...] as of this encounter (statuses as of 09/16/2019) Active Problems Problem Noted Date Obesity (BMI 30-39.9) 01/30/2019 Atypical chest pain 01/28/2019 LANE (dyspnea on exertion) 01/27/2019 Sickle cell pain crisis 01/27/2019 History of acute myocardial infarction 07/08/2017 History of CVA (cerebrovascular accident) 07/08/2017 Anxiety Depression Hypertension Seizures Sickle cell anemia documented as of this encounter (statuses as of 09/16/2019) Resolved Problems Problem Noted Date Resolved Date Foot pain, right 11/29/2015 07/08/2017 documented as of this encounter (statuses as of 09/16/2019) Social History Tobacco Use Types Packs/Day Years [...] Comme nts HOME HEALTH - OTHER Routine 09/09/2019 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
--- OUTSIDE RECORDS SUMMARY | 2019-12-22 00:40 | XMS REPORT | Summary of Care ---
:1980 Author Organization [facility] Address [address] [place] [address] Care Team Providers Name Role Phone Naeem Guaman Unavailable Thuy Jay MD Primary Care Provider Reason for Visit Reason Comments Refill Request Encounter Details Date Type Department Care Team Description 10/09/[address] [facility] Cardiology- Rell Rose MD Refill Request [place] [address] [facility], [address] [place] [address] [place] [phone] Allergies Active Allergy Reactions Severity Noted Date Comments Vxn-Yk-Zmm-Akntlaqx-Xykjz-Brat Unknown - See comments 10/01/2014 seizure Morphine [...] as of this encounter (statuses as of 10/10/2019) Medications Medication Sig Dispensed Refills Start Date [...] as of this encounter (statuses as of 10/10/2019) Active Problems Problem Noted Date Obesity (BMI 30-39.9) 01/30/2019 Atypical chest pain 01/28/2019 LANE (dyspnea on exertion) 01/27/2019 Sickle cell pain crisis 01/27/2019 History of acute myocardial infarction 07/08/2017 History of CVA (cerebrovascular accident) 07/08/2017 Anxiety Depression Hypertension Seizures Sickle cell anemia documented as of this encounter (statuses as of 10/10/2019) Resolved Problems Problem Noted Date Resolved Date Foot pain, right 11/29/2015 07/08/2017 documented as of this encounter (statuses as of 10/10/2019) Social History Tobacco Use Types Packs/Day Years [...] filedocumented in this encounter Visit Diagnoses Diagnosis LANE (dyspnea on exertion) Other dyspnea and respiratory abnormalit y Essential hypertension Unspecified essential hypertension documented in this encounter Insurance Payer Benefit Plan / Subscriber ID Effective Phone Address T ype Group Dates [facility] [place] [id number] 2017-Pres Medica [facility] - HEALTHCARE ent Adv HM O MANAGED DUAL COMPLETE MEDICARE HMO [facility] MEDICAID OF xxxxxxxxx 2019-Pres [phone] [facility] ent [phone] [place] [address] documented as of this encounter
--- OUTSIDE RECORDS SUMMARY | 2019-12-22 00:41 | XMS REPORT | Summary of Care ---
:1980 Author Organization [facility] - Health Address [address] [place] [address] Care Team Providers Name Role Phone Naeem Guaman Unavailable Thuy Jay MD Primary Care Provider Encounter Details Date Type Department Care Team Description 09/18/2019 Orders Only [facility] Doctor Unassigned, No 301 [facility] [place] [address] [address] [place] [address] Allergies Active Allergy Reactions Severity Noted Date Comments Tyd-Hf-Uiv-Dkrvxnic-Oltpc-Ovuw Unknown - See comments 10/01/2014 seizure Morphine [...] as of this encounter (statuses as of 10/20/2019) Medications Medication Sig Dispensed Refills Start Date [...] as of this encounter (statuses as of 10/20/2019) Active Problems Problem Noted Date Obesity (BMI 30-39.9) 01/30/2019 Atypical chest pain 01/28/2019 LANE (dyspnea on exertion) 01/27/2019 Sickle cell pain crisis 01/27/2019 History of acute myocardial infarction 07/08/2017 History of CVA (cerebrovascular accident) 07/08/2017 Anxiety Depression Hypertension Seizures Sickle cell anemia documented as of this encounter (statuses as of 10/20/2019) Resolved Problems Problem Noted Date Resolved Date Foot pain, right 11/29/2015 07/08/2017 documented as of this encounter (statuses as of 10/20/2019) Social History Tobacco Use Types Packs/Day Years [...] Comme nts HOME HEALTH - OTHER Routine 09/18/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
--- OUTSIDE RECORDS SUMMARY | 2019-12-22 00:41 | XMS REPORT | Summary of Care ---
:1980 Author Organization [facility] - Health Address [address] [place] [address] Care Team Providers Name Role Phone Naeem Gumaan Unavailable Thuy Jay MD Primary Care Provider Encounter Details Date Type Department Care Team Description 10/14/2019 Orders Only [facility] Doctor Unassigned, No 301 [facility] [place] [address] [address] [place] [address] Allergies Active Allergy Reactions Severity Noted Date Comments Dqx-Uk-Rov-Vtsyvotb-Nmdbb-Zizz Unknown - See comments 10/01/2014 seizure Morphine [...] as of this encounter (statuses as of 11/05/2019) Medications Medication Sig Dispensed Refills Start Date [...] as of this encounter (statuses as of 11/05/2019) Active Problems Problem Noted Date Obesity (BMI 30-39.9) 01/30/2019 Atypical chest pain 01/28/2019 LANE (dyspnea on exertion) 01/27/2019 Sickle cell pain crisis 01/27/2019 History of acute myocardial infarction 07/08/2017 History of CVA (cerebrovascular accident) 07/08/2017 Anxiety Depression Hypertension Seizures Sickle cell anemia documented as of this encounter (statuses as of 11/05/2019) Resolved Problems Problem Noted Date Resolved Date Foot pain, right 11/29/2015 07/08/2017 documented as of this encounter (statuses as of 11/05/2019) Social History Tobacco Use Types Packs/Day Years [...] Comme nts HOME HEALTH - OTHER Routine 10/14/2019 12:01 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
--- OUTSIDE RECORDS SUMMARY | 2019-12-22 00:41 | XMS REPORT | Summary of Care ---
:1980 Author Organization [facility] - Health Address [address] [place] [address] Care Team Providers Name Role Phone Naeem Guaman Unavailable Thuy Jay MD Primary Care Provider Encounter Details Date Type Department Care Team Description 10/06/2019 Orders Only [facility] Doctor Unassigned, No 301 [facility] [place] [address] [address] [place] [address] Allergies Active Allergy Reactions Severity Noted Date Comments Pwa-Jn-Jyj-Dxstqhfk-Bhgqt-Jptr Unknown - See comments 10/01/2014 seizure Morphine [...] as of this encounter (statuses as of 10/15/2019) Medications Medication Sig Dispensed Refills Start Date [...] as of this encounter (statuses as of 10/15/2019) Active Problems Problem Noted Date Obesity (BMI 30-39.9) 01/30/2019 Atypical chest pain 01/28/2019 LANE (dyspnea on exertion) 01/27/2019 Sickle cell pain crisis 01/27/2019 History of acute myocardial infarction 07/08/2017 History of CVA (cerebrovascular accident) 07/08/2017 Anxiety Depression Hypertension Seizures Sickle cell anemia documented as of this encounter (statuses as of 10/15/2019) Resolved Problems Problem Noted Date Resolved Date Foot pain, right 11/29/2015 07/08/2017 documented as of this encounter (statuses as of 10/15/2019) Social History Tobacco Use Types Packs/Day Years [...] Comme nts HOME HEALTH - OTHER Routine 10/06/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
--- OUTSIDE RECORDS SUMMARY | 2019-12-22 00:42 | XMS REPORT | Summary of Care ---
:1980 Author Organization [facility] - Health Address [address] [place] [address] Care Team Providers Name Role Phone Naeem Guaman Unavailable Thuy Jay MD Primary Care Provider Encounter Details Date Type Department Care Team Description 11/09/2019 Orders Only [facility] Doctor Unassigned, No 301 [facility] [place] [address] [address] [place] [address] Allergies Active Allergy Reactions Severity Noted Date Comments Gkc-Qt-Asu-Ivbnzyxu-Hcmau-Tofu Unknown - See comments 10/01/2014 seizure Morphine [...] as of this encounter (statuses as of 11/17/2019) Medications Medication Sig Dispensed Refills Start Date [...] as of this encounter (statuses as of 11/17/2019) Active Problems Problem Noted Date Obesity (BMI 30-39.9) 01/30/2019 Atypical chest pain 01/28/2019 LANE (dyspnea on exertion) 01/27/2019 Sickle cell pain crisis 01/27/2019 History of acute myocardial infarction 07/08/2017 History of CVA (cerebrovascular accident) 07/08/2017 Anxiety Depression Hypertension Seizures Sickle cell anemia documented as of this encounter (statuses as of 11/17/2019) Resolved Problems Problem Noted Date Resolved Date Foot pain, right 11/29/2015 07/08/2017 documented as of this encounter (statuses as of 11/17/2019) Social History Tobacco Use Types Packs/Day Years [...] Comme nts HOME HEALTH - OTHER Routine 11/09/2019 12:01 AM CDT documented in this encounter Results Not on filedocumented in this encounter Insurance Payer Benefit Plan / Subscriber ID Effective Phone Address T e Group Dates [facility] [id number] 2017-Pres Medica re HEALTHCARE - HEALTHCARE ent Adv HM O MANAGED DUAL COMPLETE MEDICARE HMO [facility] MEDICAID OF xxxxxxxxx 2019-Pres [phone] [address] Medi caid [place] ent [phone] [place] [address] documented as of this encounter
--- OUTSIDE RECORDS SUMMARY | 2019-12-22 00:43 | XMS REPORT | Summary of Care ---
:1980 Author Organization [facility] - Health Address [address] [place] [address] Care Team Providers Name Role Phone Naeem Guaman Unavailable Thuy Jay MD Primary Care Provider Encounter Details Date Type Department Care Team Description 11/17/2019 Orders Only [facility] Doctor Unassigned, No [address] [facility] [place] [place] [address] [address] [place] [address] Allergies Active Allergy Reactions Severity Noted Date Comments Url-Su-Mld-Ksitffvw-Mpmcp-Alsh Unknown - See comments 10/01/2014 seizure Morphine [...] as of this encounter (statuses as of 11/24/2019) Medications Medication Sig Dispensed Refills Start Date [...] as of this encounter (statuses as of 11/24/2019) Active Problems Problem Noted Date Obesity (BMI 30-39.9) 01/30/2019 Atypical chest pain 01/28/2019 LANE (dyspnea on exertion) 01/27/2019 Sickle cell pain crisis 01/27/2019 History of acute myocardial infarction 07/08/2017 History of CVA (cerebrovascular accident) 07/08/2017 Anxiety Depression Hypertension Seizures Sickle cell anemia documented as of this encounter (statuses as of 11/24/2019) Resolved Problems Problem Noted Date Resolved Date Foot pain, right 11/29/2015 07/08/2017 documented as of this encounter (statuses as of 11/24/2019) Social History Tobacco Use Types Packs/Day Years [...] Comme nts HOME HEALTH - OTHER Routine 11/17/2019 12:01 AM CDT documented in this encounter Results Not on filedocumented in this encounter Insurance Payer Benefit Plan / Subscriber ID Effective Phone Address T e Group Dates [facility] [id number] 2017-Pres Medica re HEALTHCARE - HEALTHCARE ent Adv HM O MANAGED DUAL COMPLETE MEDICARE HMO [facility] MEDICAID OF xxxxxxxxx 2019-Pres [phone] [place] ent [id number] [place] [address] documented as of this encounter
--- OUTSIDE RECORDS SUMMARY | 2019-12-22 00:43 | XMS REPORT | Summary of Care ---
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 Jayson Jay Procedures CONSULT/REFERRAL HEMATOLOGY A, [address] [place] [address] [place] [address] Encounter Details Date Type Department Care Team Description 12/18/2019 Telemedicine Visit [facility] Michelet Lao, Hb-SS disease with crisis (Primary Dx); Hematology-Oncology Iron overload; - [address] Nutritional anemia, unspecif ied [address] [phone] [facility], [address] [phone] (Fax) [place] [address] Allergies Active Allergy Reactions Severity Noted Date Comments Xid-Xd-Smo-Atropine-Hyosc- Unknown - See 10/01/2014 seizure Scop comments Fentanyl Other - See comments 12/18/2019 seizure Morphine Unknown - See 05/30/2015 comments Morphine Other - See comments 11/22/2015 Metoclopramide Hcl Other - See comments 07/02/2017 S eizures Butorphanol Tartrate Other - See comments 05/30/2015 Seizures Butorphanol Tartrate Other - See comments 11/29/2015 seizurs Ketorolac Tromethamine Other - See comments 05/30/2015 Seizures Ketorolac Tromethamine Other - See comments 11/22/2015 Seizure Tramadol Other - See comments 11/22/2015 Trazodone Unknown - See 05/30/2015 comments Trazodone Other - See comments 11/22/2015 Alprazolam Other - See comments 12/18/2019 "Causes seizure when xanax leav es the system" Ondansetron Hcl (Pf) Unknown - See 05/30/2015 comments documented as of this encounter (statuses as of 12/19/2019) Medications Medication Sig Dispensed Refills Start Date [...] as of this encounter (statuses as of 12/19/2019) Active Problems Problem Noted Date Obesity (BMI 30-39.9) 01/30/2019 Atypical chest pain 01/28/2019 LANE (dyspnea on exertion) 01/27/2019 Sickle cell pain crisis 01/27/2019 History of acute myocardial infarction 07/08/2017 History of CVA (cerebrovascular accident) 07/08/2017 Anxiety Depression Hypertension Seizures Sickle cell anemia documented as of this encounter (statuses as of 12/19/2019) Resolved Problems Problem Noted Date Resolved Date Foot pain, right 11/29/2015 07/08/2017 documented as of this encounter (statuses as of 12/19/2019) Social History Tobacco Use Types Packs/Day Years [...] Signs Not on filedocumented in this encounter Progress Notes Michelet Lao MD - 12/18/2019 1:40 PM CDT Hematology TeleHealth Clinic Note Patient: Brennon Duffy Age: [age] year old Attending: Michelet Lao MD Date of Visit: December 18, 2019 This visit was completed via virtually due to the restrictions of the COVID-19 pandemic. All issues as below were discussed and addressed but no physical exam was performed. If it was felt that the patient should be evaluated in clinic then they were directed there. The patient was identified by name and . Verbal consent obtained from Patient: Brennon Duffy Communication with patient was conducted via Video Call([employer]). 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 Guaman at [facility] and comes here for a second opinion. Sickle trait in father and mother, brother with disease Diagnosed at 6 months age Started having increasing pain at the age of 18 with use of norco 10-325mg 2tabs 4 times/day with reported non significant relief. Several claimed medication allergies with reported "seizures on withdrawal" to most incl morphine, fentanyl. Pain meds managed by Dr. Guaman. Stroke at the age of 3, multiple old infarcts on imaging, residual left sided arm weakness and atrophy. 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 [facility] goes [facility] for transfusions. Has several antibodies making it difficult to get blood.RBC exchange once in 2016 for what appears to be acute chest syndrome needing intubation. Reports getting transfusions 1-2/month. Hydroxyurea: took for 2 years - feels it made crisis longer and severe. Quit taking it 4 years ago. Iron overload: Supposed to be on jadenu - makes her sick. ECHO 01/2019 showed RVSP 40-45 with normal LVEF. No issues with CKD Vaccinations: Pneumonia and flu vaccines "cause pneumonia" and thereforer does not want to take themagain. She currently reports to be in an acute pain crisis although she did not seem to be in visible distress. She says that no matter what, she's been trying not to go to the ER due to risk of jimmy the virus and with her "poor immune system".She mentioned getting used to pain over the years and thatwhen he goes to the hospital, its really severe. Most of the visit time was spent about talking about pain meds- especially about how i would manage her pain if she were to come to the hospital, what meds would be given and at what doses,how she would be treated without being looked upon and pain seeker. I have explained that I do believe that patient with sickle cell disease have genuine pain and would need adequate control of pain to prevent further sickling.. However, that I would individualize pain management based on each patient's unique situation and that dosing or choice of medications depend on a variety of variable. I have assured that we treat patients with utmost care and respect. Other than the diffuse pain in the extremities, she denied any acute symptoms. Denied any SOB, nausea, vomiting, AP, changes in bowel or bladder habits, fevers, night sweats, unintentional weight loss. Past Medical History: Diagnosis Date Acute myocardial infarction Allergic rhinitis Anxiety Arthritis Depression Heart murmur Hypertension Irregular heartbeat Memory loss Migraines Seizures Sickle cell anemia Stroke Transfusion history Past Surgical History: Procedure Laterality Date BIOPSY/EXCISION, LYMPH NODE(S) SECTION CHOLECYSTECTOMY COLONOSCOPY 03/06/2019 Dr. Tiwari, no polyps HYSTERECTOMY LINE(S) CLEARED FOR USE 5 SPLENECTOMY SURGICAL HISTORY OTHER (SHX) PORT-A-CATH Allergies Allergen Reactions Kqg-Ju-Skj-Kqoyhjcf-Ekbgv-Dlui Unknown - See comments seizure Fentanyl Other - See comments seizure Morphine Unknown - See comments Morphine Other [...] See comments Trazodone Other - See comments Xanax [Alprazolam] Other - See comments "Causes seizure when xanax leaves the system" Zofran [Ondansetron Hcl (Pf)] Unknown - See comments Current Outpatient Medications Medication Sig Dispense Refill tiZANidine 2 mg tablet Take 1-2 tablets by mouth every 8 (eight) hours as needed (pain). 60 tablet 2 amLODIPine 2.5 mg tablet Take 1 tablet [...] triamcinolone acetonide (KENALOG) 0.1 % ointment No current facility-administered medications for this visit. Social History Socioeconomic History Marital status: Spouse [...] Sexual Activity Alcohol use: No Alcohol/week: 0.0 standard drinks Drug use: No Sexual activity: Not on file Lifestyle Physical activity: Days per week: Not on file Minutes per session: Not on file Stress: Not on file Relationships Social connections: Talks on phone: Not on file Gets together: Not on file Attends spiritism service: Not on file Active member of [...] Uncle Heart Paternal Uncle Cancer Paternal Grandfather OB History No data available Review of systems: A 10-system review was conducted and was negative except for what's noted in the HPI. The following systems were reviewed: Constitutional, cardiovascular, respiratory, gastrointestinal, genitourinary, musculoskeletal, neurologic, psychiatric, endocrinological, and hematological. Objective: Constitutional: alert and in no distress Resp: breathing comfortably Neuro: answers questions appropriately Psych: mood appropriate Laboratory/Imaging: No visits with results within 1 Month(s) from this visit. Latest known visit with results is: Upsetter Setter Up Visit on 03/28/2019 Component Date Value HIV 1/2 AG/AB 03/28/2019 Nonreactive RPR (Qualitative) 03/28/2019 Nonreactive C. trachomatis Nucleic A* 03/28/2019 Negative N. gonorrhoeae Nucleic A* 03/28/2019 Negative Trichomonas Nucleic Acid 03/28/2019 Negative HBsAg 03/28/2019 Negative HBsAg Semi-Quantitative 03/28/2019 0.11 HCV Ab 03/28/2019 Negative HCV Semi-Quantitative 03/28/2019 0.15 US ABDOMEN LIMITED HISTORY: Abnormal LFTs. COMPARISON: None TECHNIQUE: Liver was evaluated in multiple planes without and with color imaging. FINDINGS: Liver is approximately 21.8 cm and showed heterogeneously increased echotexture. Hepatic/portal venous systems appear patent with hepatopedal portal venous flow confirmed. No fluid is seen in the right upper abdomen. No dilatation of the intrahepatic biliary ducts. Common hepatic duct is 2.1 mm. Right kidney appears normal. Gallbladder has been removed. CONCLUSIONS: Enlarged liver with slightly coarse increased echotexture, consistent with primary liver disease including hepatic steatosis. 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 #Sickle cell disease: - Discussed the natural history of sickle cell disease, complications and management options. - Discussed the management of anemia, vaso-occlusion, inflammation and complications thereof. - Informed her about the limited options of treatment, none of which except stem cell transplant to be curative for HbSS disease and only intended to prolong life and decrease complications. - Given her reports of monthly admissions for pain, discussed use of chronic exchange transfusion program +/- hydrea, both of which have been shown to reduce the pain crises and hospitalizations as well as increase life expectancy. I have explained that while I understand her concerns about hydrea/exchange transfusion, compliance is of utmost importance for any treatment to work. - I have also tried to address her concerns about inpatient use of pain meds: I have tried to explain that this is individualized and not something that can be anticipated beforehand before the admission. She would continue norco prescribed at OSH for now. I have explained that covid-19 should not prevent her from going to the hospital, if her symptoms cannot be controlled at home. I have explained that covid-19 is something that we may be able to get rid of soon, and something that shouldn't interfere with the medical care of other issues. - She would like to think about the options of exchange/hydrea before making a decision. - Recommended labs for baseline evaluation that she would like to get next week. - Iron overload: Has prescriptions for jadenu that she never took. Will get baseline ferritin and recommend jadenu if ferritin >500. Noted recent ECHO and U/S abdomen within the past year. - h/o Stroke: Recommended baby aspirin - Cardiac health: Moderate pul HTN RVSP 40-45mm Hg. - Vaccinations: Does not want to consider flu vaccine/pneumonia vaccines in the future, despite counseling on safety. - RTC 2 months heme telehealth, earlier if needed. Patient knows to expect a call once lab results return. # Supportive Care - Pain: 05/29, generalized - Plan for Pain: On norco being prescribed by Dr. Guaman - Constipation: discussed patient can use OTC laxatives and stool softeners as needed. - Emotional Distress: Due to chronic pain from sickle cell disease, offered counseling and education - Management of any of the other health conditions per PCP. # Counseling - Discussed narcotic use and precautions advised with such. - Discussed measures to decrease pain crisis. - Educated on the benefits, risks, alternatives to hydrea - Discussed indications for ER visit. # Code Status Not addressed this visit # Therapy Intent Life Prolongation Discussed with the patient that due to their medical history they are at higher risk of complications from COVID-19 infection, hence we recommend the following: - Avoid exposure as much as possible by staying at home - Wash hands with soap and water for at least 20 seconds - Avoid touching eyes, nose and mouth with unwashed hands - Avoid close contact with people who are sick - Clean and disinfect frequently touched surfaces daily Follow Up: Orders Placed This Encounter Procedures COMP. METABOLIC PANEL (11195) MAGNESIUM PHOSPHORUS THYROID STIMULATING HORMONE FERRITIN SERUM FOLATE VITAMIN B12, LEVEL URINALYSIS MICROSCOPIC LACTATE DEHYDROGENASE HAPTOGLOBIN, SERUM DIFF CONSULT BY PATHOLOGIST HEMOGLOBINOPATHY EVALUATION IRON PANEL Type and Screen - aPTT PROTHROMBIN TIME / INR CBC WITH DIFF RETICULOCYTES AUTOMATED FIBRINOGEN ANTI-NUCLEAR ANTIBODY SCREEN A total of 70 minutes were spent on on the Video Call, chart review, and coordination of care with specialists with the patient, with greater than 50% of which comprised of counseling and coordination of care. All of the patient's questions were answered to their satisfaction. They will return to clinic as above. Michelet Lao MD science education professor, Department of Hematology/Oncology, [facility]. Phn: [phone] documented in this encounter Plan of Treatment Date Type Specialty Care Team Description 12/22/2019 Upsetter Setter Up Visit Phlebotomy [facility] 02/19/2020 Office Visit Oncology Michelet Lao MD [address] [place], [place] [address] [phone] Name Type Priority Associated Diagnoses Order S chedule COMP. METABOLIC PANEL LAB Routine Hb-SS disease with Expected: (97019) crisis 12/19/2019, Expires: Iron overload 12/18/2020 MAGNESIUM LAB Routine Hb-SS disease with Expected: crisis 12/19/2019, Expires: Iron overload 12/18/2020 PHOSPHORUS LAB Routine Hb-SS disease with Expected: crisis 12/19/2019, Expires: Iron overload 12/18/2020 THYROID STIMULATING HORMONE LAB Routine Nutritional a nemia, Expected: unspecified 12/19/2019, Expires: Hb-SS disease with 1 crisis Iron overload FERRITIN SERUM LAB Routine Hb-SS disease with Expecte d: crisis 12/19/2019, Expires: Iron overload 12/18/2020 FOLATE LAB Routine Nutritional anemia, Expected : unspecified 12/19/2019, Expires: Hb-SS disease with 1 crisis Iron overload VITAMIN B12, LEVEL LAB Routine Nutritional anemia, Ex pected: unspecified 12/19/2019, Expires: Hb-SS disease with 1 crisis Iron overload URINALYSIS MICROSCOPIC LAB Routine Hb-SS disease with Expected: crisis 12/19/2019, Expires: Iron overload 12/18/2020 LACTATE DEHYDROGENASE LAB Routine Hb-SS disease with Expected: crisis 12/19/2019, Expires: Iron overload 12/18/2020 HAPTOGLOBIN, SERUM LAB Routine Hb-SS disease with Exp ected: crisis 12/19/2019, Expires: Iron overload 12/18/2020 DIFF CONSULT BY PATHOLOGIST LAB Routine Hb-SS disease with Expected: crisis 12/19/2019, Expires: Iron overload 12/18/2020 HEMOGLOBINOPATHY EVALUATION LAB Routine Hb-SS disease with Expected: crisis 12/19/2019, Expires: Iron overload 12/18/2020 IRON PANEL LAB Routine Hb-SS disease with Expected: crisis 12/19/2019, Expires: Iron overload 12/18/2020 Type and Screen - LAB Routine Hb-SS disease with Expe cted: crisis 12/19/2019, Expires: Iron overload 12/18/2020 aPTT LAB Routine Hb-SS disease with Expected: crisis 12/19/2019, Expires: Iron overload 12/18/2020 PROTHROMBIN TIME / INR LAB Routine Hb-SS disease with Expected: crisis 12/19/2019, Expires: Iron overload 12/18/2020 CBC WITH DIFF LAB Routine Hb-SS disease with Expected : crisis 12/19/2019, Expires: Iron overload 12/18/2020 RETICULOCYTES AUTOMATED LAB Routine Hb-SS disease wit h Expected: crisis 12/19/2019, Expires: Iron overload 12/18/2020 FIBRINOGEN LAB Routine Hb-SS disease with Expected: crisis 12/19/2019, Expires: Iron overload 12/18/2020 ANTI-NUCLEAR ANTIBODY SCREEN LAB Routine Hb-SS diseas e with Expected: crisis 12/19/2019, Expires: Iron overload 12/18/2020 Health Maintenance Due Date Last Done Comments PAP SMEAR 2000 Breast Cancer Screening 2019 (MAMMOGRAM) DTaP,Tdap,and Td Vaccines (1 - 03/30/2020 P ostponed from 1990 Tdap) (Refused) PNEUMOCOCCAL 0-64 YEARS COMBINED 03/30/2020 Postponed from 1985 SERIES (1 of 3 - PCV13) (Refused ) INFLUENZA VACCINE (Season Ended) 2020 Postponed from 04/20/2020 (Parent Refused) documented as of this encounter Results Not on filedocumented in this encounter Visit Diagnoses Diagnosis Hb-SS disease with crisis - Primary Iron overload Other disorders of iron metabolism Nutritional anemia, unspecified documented in this encounter Insurance Payer Benefit Plan / Subscriber ID Effective Phone Address T ype Group [facility] [id number] 2017-Pres Medica re HEALTHCARE - HEALTHCARE ent Adv HM O MANAGED DUAL COMPLETE MEDICARE HMO [facility] MEDICAID OF xxxxxxxxx 2019-Pres [phone] [place] ent [id number] [place] [address] documented as of this encounter
--- OUTSIDE RECORDS SUMMARY | 2019-12-22 00:43 | XMS REPORT | Summary of Care ---
:1980 Author Organization [facility] - Health Address [address] [place] [address] Care Team Providers Name Role Phone Naeem Guaman Unavailable Thuy Jay MD Primary Care Provider Encounter Details Date Type Department Care Team Description 11/28/2019 Orders Only [facility] Doctor Unassigned, No [address] [facility] [place] [address] [address] [place] [address] Allergies Active Allergy Reactions Severity Noted Date Comments Pft-Sn-Rhc-Kusqieya-Zgeye-Kcyo Unknown - See comments 10/01/2014 seizure Morphine [...] as of this encounter (statuses as of 12/18/2019) Medications Medication Sig Dispensed Refills Start Date [...] as of this encounter (statuses as of 12/18/2019) Active Problems Problem Noted Date Obesity (BMI 30-39.9) 01/30/2019 Atypical chest pain 01/28/2019 LANE (dyspnea on exertion) 01/27/2019 Sickle cell pain crisis 01/27/2019 History of acute myocardial infarction 07/08/2017 History of CVA (cerebrovascular accident) 07/08/2017 Anxiety Depression Hypertension Seizures Sickle cell anemia documented as of this encounter (statuses as of 12/18/2019) Resolved Problems Problem Noted Date Resolved Date Foot pain, right 11/29/2015 07/08/2017 documented as of this encounter (statuses as of 12/18/2019) Social History Tobacco Use Types Packs/Day Years [...] Treatment Date Type Specialty Care Team Description 12/18/2019 Telemedicine Visit Oncology Bayron Lao MD Arrived [address] [place], [place] [address] [phone] Health Maintenance Due Date Last Done Comments [...] Comme nts HOME HEALTH - OTHER Routine 11/28/2019 12:01 AM CDT documented in this encounter Results Not on filedocumented in this encounter Insurance Payer Benefit Plan / Subscriber ID Effective Phone Address T ype Group Dates [facility] [id number] 2017-Pres [facility]ica [facility] - HEALTHCARE ent Adv HM O MANAGED DUAL COMPLETE MEDICARE HMO [facility] MEDICAID OF xxxxxxxxx 2019-Pres [phone] [address] [id number] [place] [address] documented as of this encounter
[2019-12-22] MEDS ORDERED: NA CHLORIDE 0.9% 2,000 ML ONE (00:46)
[2019-12-22] MEDS ORDERED: NA CHLORIDE 0.9% 1,000 ML ONE (00:48)
[2019-12-22 01:34] LABS: Protime INR 1.65
[2019-12-22] MEDS ORDERED: HYDROMORPHONE HCL 1 MG/ML INJ ONE (01:42)
[2019-12-22] MEDS ORDERED: ACETAMINOPHEN 500 MG TAB ONE (02:04)
[2019-12-22 02:05] LABS: ALT/SGPT 216 U/L (12-78); Albumin 2.7 g/dL (3.4-5.0); Alkaline Phosphatase 171 U/L (45-117); Amylase Level 24 U/L (25-115); BUN Blood Urea Nitrogen 46 mg/dL (7-18); Bicarbonate 19 mmol/L (21-32); CKMB Creatine Kinase MB < 1.0 ng/mL (0.3-3.6); Creatine Phosphokinase 98 U/L (26-192); Glucose Level 150 mg/dL (74-106); Lipase 37 U/L (73-393); Potassium 4.7 mmol/L (3.5-5.1); Protein, Total 9.3 g/dL (6.4-8.2); Sodium Level 135 mmol/L (136-145)
[2019-12-22 02:06] LABS: AST/SGOT 1090 U/L (15-37)
[2019-12-22 02:07] LABS: Troponin (Emerg Dept Use Only) 0.94 ng/mL (0.0-0.045)
--- NOTE | 2019-12-22 02:13 | EDPHYS ---
Physician Documentation [facility] Name: Brennon Berg Age: 39 yrs Sex: Female : 1980 Arrival Date: 12/22/2019 Time: 00:10 Bed 6 Private MD: ED Physician Cristiano Fountain HPI: 12/21 04:05 This 39 yrs old Black Female presents to ER via Wheelchair with complaints of Sickle tw4 Cell Crisis. 04:05 The patient reports fever, that was measured at 102 degrees Fahrenheit. Onset: The tw4 symptoms/episode began/occurred today. Modifying factors: there are no obvious modifying factors. Associated signs and symptoms: Pertinent positives: altered mental status,\E\ arthralgias, myalgias. Severity of symptoms: At their worst the symptoms were moderate in the emergency department the symptoms are unchanged. The patient has experienced similar episodes in the past, several times. Historical: - Allergies: 00:45 Fentanyl; lp1 00:45 Morphine; lp1 00:45 Reglan; lp1 00:45 Stadol; lp1 00:45 Toradol; lp1 00:45 tramadol; lp1 00:45 Trazodone; lp1 00:45 Ultram; lp1 00:45 Zofran; lp1 - Home Meds: 00:45 gabapentin 300 mg Oral cap 1 cap 3 times per day [Active]; Hydrea 500 mg Oral cap TID lp1 [Active]; hydrocodone-acetaminophen 10-325 mg Oral tab [Active]; hydroxyurea 500 mg Oral cap 1 cap every 3 days [Active]; Keppra 250 mg Oral tab 1 tabs 2 times per day [Active]; promethazine 25 mg Oral tab as needed [Active]; Xanax 2 mg Oral tab 2 times a day [Active]; - PMHx: 00:45 aplastic anemia; CVA; L sided weakness; Myocardial infarction; 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 - Social history:: Smoking status: Patient denies any tobacco usage or history of. ROS: 04:10 Cardiovascular: Negative for chest pain, palpitations, and edema, Respiratory: Negative tw4 for shortness of breath, cough, wheezing, and pleuritic chest pain, Abdomen/GI: Negative for abdominal pain, nausea, vomiting, diarrhea, and constipation, Back: Negative for injury and pain, MS/Extremity: Negative for injury and deformity. 04:10 Constitutional: Positive for body aches, fever, malaise. Exam: 04:10 Constitutional: This is a well developed, well nourished patient who is awake, alert, tw4 and in no acute distress. Head/Face: Normocephalic, atraumatic. Chest/axilla: Normal chest wall appearance and motion. Nontender with no deformity. No lesions are appreciated. Cardiovascular: Regular rate and rhythm with a normal S1 and S2. No gallops, murmurs, or rubs. Normal PMI, no JVD. No pulse deficits. Respiratory: Lungs have equal breath sounds bilaterally, clear to auscultation and percussion. No rales, rhonchi or wheezes noted. No increased work of breathing, no retractions or nasal flaring. Abdomen/GI: Soft, non-tender, with normal bowel sounds. No distension or tympany. No guarding or rebound. No evidence of tenderness throughout. Skin: Warm, dry with normal turgor. Normal color with no rashes, no lesions, and no evidence of cellulitis. MS/ Extremity: Pulses equal, no cyanosis. Neurovascular intact. Full, normal range of motion. Neuro: Awake and alert, GCS 15, oriented to person, place, time, and situation. Cranial nerves II-XII grossly intact. Motor strength 5/5 in all extremities. Sensory grossly intact. Cerebellar exam normal. Normal gait. Vital Signs: 00:51 BP 113 / 64; Pulse 112; Resp 18; Temp 102.3; Pulse Ox 87% on R/A; mg2 00:52 Pulse Ox 99% on 3 lpm NC; mg2 01:00 Weight 81.65 kg; mg2 01:00 BP 113 / 64; Pulse 114; Resp 20; Pulse Ox 100% on 2 lpm NC; rv 02:00 BP 108 / 61; Pulse 109; Resp 27; Pulse Ox 98% on 2 lpm NC; rv 02:30 BP 100 / 61; Pulse 102; Resp 24; Pulse Ox 98% on 2 lpm NC; rv 03:15 BP 104 / 65; Pulse 100; Resp 23; Temp 98.6; Pulse Ox 100% on 2 lpm NC; rv 04:41 BP 98 / 58; Pulse 96; Resp 19; Pulse Ox 100% on 2 lpm NC; rv 05:11 BP 96 / 67; Pulse 96; Resp 20; Pulse Ox 100% on 2 lpm NC; rv MDM: 00:24 Patient medically screened. tw4 04:22 Differential diagnosis: viral Infection, bacterial infection, URI, UTI. Differential tw4 diagnosis: bronchitis, pneumonia sepsis. Data reviewed: vital signs, nurses notes. Data reviewed: lab test result(s), cardiac enzymes, CBC, hepatic panel, EKG, radiologic studies, plain films. Data interpreted: Pulse oximetry: Interpretation: normal. Test interpretation: by ED physician or midlevel provider: plain radiologic studies. Post IV fluid administration reassessment for Sepsis: Sepsis focused reassessment complete. Focused assessment performed: December 22, 2019 at 04:20 Heart: Regular rate/rhythm. Lungs: noted to be clear bilaterally. Capillary refill examination performed. Capillary refill noted to be brisk. Peripheral pulse evaluation performed. Peripheral pulses noted to be 3+ normal. Skin examination performed. Skin examination noted to be unremarkable. Current patient vital signs reviewed: Yes. Neuro: Patient's neurological exam has improved from previous exam. Cardio: Cardiovascular exam improved from previous exam. Heart rate and blood pressure have improved. Counseling: I had a detailed discussion with the patient and/or guardian regarding: the historical points, exam findings, and any diagnostic results supporting the discharge/admit diagnosis, lab results, radiology results. ED course: Pt will need higher level of care secondary to lack of ICU beds at [facility]. D/W Dr Wadsworth from [facility] who agrees to accept patient . 12/21 00:27 Order name: CBC with Diff; Complete Time: 03:32 4 12/21 03:33 Interpretation: Normal except: WBC 35.6; RBC 1.12; HGB 4.2; HCT 12.7; RDW 26.3; MCH tw4 37.6; MCV 113.2. 12/21 00:27 Order name: Retic Count; Complete Time: 03:32 tw4 12/21 03:33 Interpretation: Normal except: RETIC% 28.13; RETICA 0.31. 12/21 00:34 Order name: Amylase, Serum 12/21 00:34 Order name: Basic Metabolic Panel 12/21 00:34 Order name: Blood Culture Adult (2) 12/21 00:34 Order name: Ckmb; Complete Time: 03:32 12/21 00:34 Order name: CPK; Complete Time: 03:32 12/21 00:34 Order name: Lactate; Complete Time: 02:08 12/21 00:34 Order name: LFT's; Complete Time: 03:32 12/21 03:33 Interpretation: Normal except: AST 1090; ALT 216; ALK 171; BILIT 7.0; BILID 3.0; TP tw4 9.3; GLOB 6.6; ALB 2.7. 12/21 00:34 Order name: Lipase; Complete Time: 03:32 12/21 03:33 Interpretation: Abnormal: LIP 37. 12/21 00:34 Order name: Procalcitonin; Complete Time: 02:08 12/21 00:34 Order name: Protime (+inr); Complete Time: 02:08 12/21 00:34 Order name: Ptt, Activated; Complete Time: 02:08 12/21 00:34 Order name: Troponin (emerg Dept Use Only); Complete Time: 03:32 12/21 03:33 Interpretation: Abnormal: TROPED 0.94. 12/21 00:34 Order name: Chest Single View XRAY 12/21 00:35 Order name: Amylase Level; Complete Time: 03:32 EDMS 12/21 03:33 Interpretation: Abnormal: RADHA 24. 12/21 00:35 Order name: Basic Metabolic Panel; Complete Time: 03:32 EDMS 12/21 03:34 Interpretation: Normal except: NA 135; CO2 19; GLUC 150; BUN 46; CRE 1.67; GFR 41. 12/21 02:27 Order name: Manual Differential; Complete Time: 03:32 EDMS 12/21 03:07 Order name: Type And Screen rv 12/21 03:52 Order name: COVID-19 tw 12/21 04:06 Order name: Flu mt 12/21 04:06 Order name: Strep mt 12/21 04:07 Order name: Influenza Screen (A EDMS 12/21 04:07 Order name: Group A Streptococcus Rapid Sc EDMS 12/21 04:52 Order name: Lactate Sepsis 2 HR Follow-up EDMS 12/21 05:07 Order name: Throat Culture EDMS 12/21 00:34 Order name: Accucheck; Complete Time: 01:56 tw4 12/21 00:34 Order name: Cardiac monitoring; Complete Time: 01:56 tw4 12/21 00:34 Order name: EKG - Nurse/Tech; Complete Time: 01:56 4 12/21 00:34 Order name: IV Saline Lock - Large Bore; Complete Time: :56 4 12/21 00:34 Order name: Labs collected and sent; Complete Time: 01:56 tw4 12/21 00:34 Order name: O2 Per Protocol; Complete Time: :56 4 12/21 00:34 Order name: O2 Sat Monitoring; Complete Time: :56 tw4 12/21 03:56 Order name: Transfuse; Complete Time: 04:30 tw4 EC:10 Rate is 106 beats/min. Rhythm is regular. QRS [place] is Normal. [place] interval is normal. tw4 QRS interval is normal. QT interval is normal. No Q waves. T waves are Normal. No ST changes noted. Clinical impression: Sinus tachycardia. Interpreted by me. Reviewed by me. Administered Medications: 00:34 CANCELLED (Physician Discretion): NS 0.9% 1000 ml IV at 1 bolus Per protocol; 1000 mL tw4 bolus 01:22 Drug: NS 0.9% (30 ml/kg) 30 ml/kg Route: IV; Rate: bolus; Site: left upper arm; rv 05:13 Follow up: IV Status: Completed infusion; IV Intake: 2450ml rv 01:37 Drug: Dilaudid 1 mg {Note: rass 0.} Route: IVP; Site: left upper arm; rv 03:39 Follow up: Response: No adverse reaction; RASS: Alert and Calm (0) rv 02:50 Drug: Zosyn 3.375 grams Route: IVPB; Infused Over: 60 mins; Site: left upper arm; rv 03:53 Follow up: IV Status: Completed infusion; IV Intake: 100ml rv 03:54 Drug: vancoMYCIN 15 mg/kg Route: IVPB; Site: left upper arm; rv 05:13 Follow up: IV Status: Completed infusion; IV Intake: 250ml rv Disposition: 12/22/19 04:00 Transfer ordered to [facility]. Diagnosis are Anemia, unspecified, Acute kidney failure, unspecified, Nonspecific elevation of levels of transaminase and lactic acid dehydrogenase [LDH], Sepsis, unspecified organism, Sickle-cell disease without crisis. - Reason for transfer: Higher level of care. - Accepting physician is Dr Wadsworth. - Condition is Stable. - Problem is an ongoing problem. - Symptoms have worsened. Signatures: Dispatcher [employer] EDMT Tianna Sequeira RN RN lp1 Cristiano Fountain MD MD tw4 Vasquez Coe RN RN rv Corrections: (The following items were deleted from the chart) 00:34 00:27 NS 0.9% 1000 ml IV at 1 bolus Per protocol; 1000 mL bolus ordered. tw4 tw4 01:23 00:35 CBC+H.LAB.BRZ ordered. [facility] EDMS 01:25 00:27 COMPREHENSIVE METABOLIC PANEL+C.LAB.BRZ ordered. [facility] EDMT 03:58 02:12 Hospitalization Ordered by Marlo Dillon for Inpatient Admission. Preliminary tw4 diagnosis is Sepsis, unspecified organism; Sickle-cell disorders; Unspecified viral hepatitis. Bed requested for Telemetry/MedSurg (Inpatient). Status is Inpatient Admission. Condition is Fair. Problem is new. Symptoms are unchanged. tw4 04:00 04:00 12/22/2019 04:00 Transfer ordered to [facility]. tw4 Diagnosis is Anemia, unspecified; Acute kidney failure, unspecified; Nonspecific elevation of levels of transaminase and lactic acid dehydrogenase [LDH]; Sepsis, unspecified organism. Reason for transfer: Higher level of care. Accepting physician is Dr Wadsworth. Condition is Stable. Problem is an ongoing problem. Symptoms have worsened. tw4 05:35 04:00 12/22/2019 04:00 Transfer ordered to [facility]. rv Diagnosis is Anemia, unspecified; Acute kidney failure, unspecified; Nonspecific elevation of levels of transaminase and lactic acid dehydrogenase [LDH]; Sepsis, unspecified organism; Sickle-cell disease without crisis. Reason for transfer: Higher level of care. Accepting physician is Dr Wadsworth. Condition is Stable. Problem is an ongoing problem. Symptoms have worsened. tw4
--- NOTE | 2019-12-22 02:13 | ER ---
Nurse's Notes [facility] Name: Brennon Berg Age: 39 yrs Sex: Female : 1980 Arrival Date: 12/22/2019 Time: 00:10 Bed 6 Private MD: Diagnosis: Anemia, unspecified;Acute kidney failure, unspecified;Nonspecific elevation of levels of transaminase and lactic acid dehydrogenase [LDH];Sepsis, unspecified organism;Sickle-cell disease without crisis Presentation: 12/21 00:41 Chief complaint: Mother states she has been in a sickle cell crisis for about 2 weeks lp1 now, patient had a fever tonight and given Ibuprofen 600mg tablet [employer]; Mother states she has been sleeping a lot, does that when her hemoglobin is low;. Coronavirus screen: Patient denies a cough. Patient denies shortness of breath or difficulty breathing. Patient reports a measured and/or subjective temperature greater than 100.4F. Patient denies travel on a cruise ship or to a country the [facility] currently lists as an affected area. Patient denies contact with known and/or suspected case of COVID-19. Ebola Screen: No symptoms or risks identified at this time. Risk Assessment: Do you want to hurt yourself or someone else? Patient reports no desire to harm self or others. Onset of symptoms was December 22, 2019. 00:41 Method Of Arrival: Wheelchair lp1 00:41 Acuity: TEMI 2 lp1 00:51 Initial Sepsis Screen: Does the patient meet any 2 criteria?. mg2 00:59 Initial Sepsis Screen: Does the patient meet any 2 criteria? Temp <36.0*C (96.8*F)) or mg2 > 38.3*C (100.9*F). HR > 90 bpm. Does the patient have a suspected source of infection?. Historical: - Allergies: 00:45 Fentanyl; lp1 00:45 Morphine; lp1 00:45 Reglan; lp1 00:45 Stadol; lp1 00:45 Toradol; lp1 00:45 tramadol; lp1 00:45 Trazodone; lp1 00:45 Ultram; lp1 00:45 Zofran; lp1 - Home Meds: 00:45 gabapentin 300 mg Oral cap 1 cap 3 times per day [Active]; Hydrea 500 mg Oral cap TID lp1 [Active]; hydrocodone-acetaminophen 10-325 mg Oral tab [Active]; hydroxyurea 500 mg Oral cap 1 cap every 3 days [Active]; Keppra 250 mg Oral tab 1 tabs 2 times per day [Active]; promethazine 25 mg Oral tab as needed [Active]; Xanax 2 mg Oral tab 2 times a day [Active]; - PMHx: 00:45 aplastic anemia; CVA; L sided weakness; Myocardial infarction; 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 - Social history:: Smoking status: Patient denies any tobacco usage or history of. Screenin:52 Abuse screen: Denies threats or abuse. Denies injuries from another. Nutritional mg2 screening: No deficits noted. Tuberculosis screening: No symptoms or risk factors identified. 03:38 Fall Risk None identified. rv Assessment: 00:58 General: Appears in no apparent distress. comfortable, Behavior is calm, cooperative. mg2 Pain: Complains of pain in all over. Neuro: Level of Consciousness is awake, alert, obeys commands, Oriented to person, place, time, situation. Cardiovascular: Capillary refill < 3 seconds Patient's skin is warm and dry. Respiratory: Airway is patent Respiratory effort is even, unlabored, Respiratory pattern is regular, symmetrical. GI: No signs and/or symptoms were reported involving the gastrointestinal system. : No signs and/or symptoms were reported regarding the genitourinary system. EENT: No signs and/or symptoms were reported regarding the EENT system. Derm: Skin is intact, Skin is icteric. Musculoskeletal: Circulation, motion, and sensation intact. Capillary refill < 3 seconds. 03:38 Reassessment: Patient and/or family updated on plan of care and expected duration. Pain rv level reassessed. Patient is alert, oriented x 3, equal unlabored respirations, skin warm/dry/pink. 04:40 Reassessment: report given to Cesilia Carroll of [facility]. family (mother) updated on rv the plans for transfer via phone. Vital Signs: 00:51 BP 113 / 64; Pulse 112; Resp 18; Temp 102.3; Pulse Ox 87% on R/A; mg2 00:52 Pulse Ox 99% on 3 lpm NC; mg2 01:00 Weight 81.65 kg; mg2 01:00 BP 113 / 64; Pulse 114; Resp 20; Pulse Ox 100% on 2 lpm NC; rv 02:00 BP 108 / 61; Pulse 109; Resp 27; Pulse Ox 98% on 2 lpm NC; rv 02:30 BP 100 / 61; Pulse 102; Resp 24; Pulse Ox 98% on 2 lpm NC; rv 03:15 BP 104 / 65; Pulse 100; Resp 23; Temp 98.6; Pulse Ox 100% on 2 lpm NC; rv 04:41 BP 98 / 58; Pulse 96; Resp 19; Pulse Ox 100% on 2 lpm NC; rv 05:11 BP 96 / 67; Pulse 96; Resp 20; Pulse Ox 100% on 2 lpm NC; rv ED Course: 00:10 Patient arrived in ED. ds1 00:24 Cristiano Fountain MD is Attending Physician. tw4 00:35 Juanito Alejandra, NIKKI is Primary Nurse. mg2 00:44 Triage completed. lp1 00:44 Arm band placed on. lp1 00:52 Patient has correct armband on for positive identification. mg2 00:55 Chest Single View XRAY In Process Unspecified. EDMS 00:59 No provider procedures requiring assistance completed. mg2 01:10 Accessed peripheral vein via ultrasound, utilizing dynamic ultrasound technique midline rv powerglide g20 x 10cm using ,sterile technique, Missed attempt(s): 20 gauge in right antecubital area. 01:10 Initial lab(s) drawn, by me, sent to lab. First set of blood cultures drawn by me. rv 02:11 Marlo Dillon is Hospitalizing Provider. tw4 02:27 Notified ED physician of a critical lab result(s). WBC 35.6, Hgb 4.2, Hct 12.7. lp1 05:14 Patient transferred, IV remains in place. rv Administered Medications: 00:34 CANCELLED (Physician Discretion): NS 0.9% 1000 ml IV at 1 bolus Per protocol; 1000 mL tw4 bolus 01:22 Drug: NS 0.9% (30 ml/kg) 30 ml/kg Route: IV; Rate: bolus; Site: left upper arm; rv 05:13 Follow up: IV Status: Completed infusion; IV Intake: 2450ml rv 01:37 Drug: Dilaudid 1 mg {Note: rass 0.} Route: IVP; Site: left upper arm; rv 03:39 Follow up: Response: No adverse reaction; RASS: Alert and Calm (0) rv 02:50 Drug: Zosyn 3.375 grams Route: IVPB; Infused Over: 60 mins; Site: left upper arm; rv 03:53 Follow up: IV Status: Completed infusion; IV Intake: 100ml rv 03:54 Drug: vancoMYCIN 15 mg/kg Route: IVPB; Site: left upper arm; rv 05:13 Follow up: IV Status: Completed infusion; IV Intake: 250ml rv Intake: 03:53 IV: 100ml; Total: 100ml. rv 05:13 IV: 250ml; Total: 350ml. rv 05:13 IV: 2450ml; Total: 2800ml. rv Outcome: 02:12 Decision to Hospitalize by Provider. tw4 04:00 ER care complete, transfer ordered by . tw4 05:11 Transferred by ground EMS to [facility], Transfer form completed. rv X-rays sent w/ patient. 05:11 Condition: stable 05:11 Instructed on the need for transfer, Demonstrated understanding of instructions. 05:35 Patient left the ED. rv Signatures: Dispatcher [employer] EDMS Karen Davis ds1 Tianna Sequeira RN RN lp1 Cristiano Fountain MD MD tw4 Juanito Alejandra RN RN mg2 Vasquez Coe RN RN rv Corrections: (The following items were deleted from the chart) 00:58 00:51 BP 113 / 64; Pulse 112bpm; Resp 18bpm; Pulse Ox 87% RA; Temp 103.2F; mg2 mg2
[2019-12-22 02:23] LABS: Absolute Lymphocytes (CBC) 11.3 K/uL (0.7-4.9); Basophils % 4.7 % (0-1.3); Lymphocytes % 31.7 % (15.3-44.8); MPV 8.9 fL (7.6-11.3); RBC Red Blood Cell Count 1.12 M/uL (3.86-4.86)
[2019-12-22 02:26] LABS: Hematocrit 12.7 % (36.0-45.0)
[2019-12-22] MEDS ORDERED: VANCOMYCIN 1 GM/VIAL ONE ×2 (02:54→02:55)
[2019-12-22] MEDS ORDERED: NA CHLORIDE 0.9% 250 ML ONE (02:54)
[2019-12-22] MEDS ORDERED: PIPER/TAZO/NS 3.375gm 3.375 GM/100 ML BAG ONE (02:54)
[2019-12-22 03:29] LABS: Anisocytosis 3+; Blood Morphology Comment NOTED (NOT SEEN); Platelet Estimate ADEQ; Polychromasia 3+; Target Cells 2+
[2019-12-22 05:55] VITALS: TEMP 98.6; O2SAT 100
[2019-12-22 05:58] VITALS: BP 96/67
--- NOTE | 2019-12-22 08:32 | RAD REPORT ---
EXAM DESCRIPTION: Gonzalez Single View12/22/2019 12:55 am CLINICAL HISTORY: Fever COMPARISON: 2018 FINDINGS: The lungs appear clear of acute infiltrate. The heart is mildly enlarged IMPRESSION: No acute abnormalities displayed
--- NOTE | 2019-12-22 10:50 | EKG ---
Test Date: 2019-12-22 Test Time: 01:15:20 Insurance Claims Specialist: CLAUDIA MEASUREMENT RESULTS: Intervals: Rate: 106 MT: 158 QRSD: 74 QT: 342 QTc: 454 [place]: P: 63 MT: 158 QRS: 28 T: 39 INTERPRETIVE STATEMENTS: Sinus tachycardia Voltage criteria for left ventricular hypertrophy Abnormal ECG Compared to ECG 05/24/2019 23:23:19 Left ventricular hypertrophy now present Sinus rhythm no longer present Electronically Signed On 12-22-19 10:48:59 CDT by Ronan Ojeda
== END 2019-12-22 05:35 | disposition short-term general hospital (02) ==
LOC: ER 00:08
DX: D57.00 Hb-SS disease with crisis, unspecified (principal); A41.9 Sepsis, unspecified organism; N17.9 Acute kidney failure, unspecified; R74.0 Nonspecific elevation of levels of transaminase and lactic acid dehydrogenase [LDH]; Z20.828 Contact with and (suspected) exposure to other viral communicable diseases
CPT/HCPCS: 93005; 87040 ×2; 87070; 85025; 80048; 36415; 82150; 86900; 86850; 82550; 85610; 85044; 86901; 80076; 87081; 83605 ×2; 85730; 84484; 82553; 83690; 84145; 87804 ×2; 71045; U0002; J2543; J1170; J7030 ×3; 96365; 96366; 96367; 96375; 99285

== ENCOUNTER 2020-02-23 07:39 | Inpatient (IN) | payer OTHER ==
--- OUTSIDE RECORDS SUMMARY | 2020-02-23 07:44 | XMS REPORT | Clinical Summary ---
:1980 Author Organization [facility] Address [address] [place] [address] Care Team Providers Name Role Phone Carlos Ambriz MD Primary Care Provider Allergies Active Allergy Reactions Severity Noted Date Comments Fentanyl Seizure 06/17/2019 Morphine Itching 06/18/2019 Metoclopramide Hcl Seizure 06/17/2019 Butorphanol Tartrate Seizure 06/17/2019 Dexchlorpheniram-Phenylephrine Unknown Reaction 2018 Ketorolac Seizure 06/17/2019 Tramadol Unknown Reaction 06/18/2019 Trazodone Unknown Reaction 06/18/2019 Ondansetron Hcl Seizure 06/17/2019 Medications Medication Sig Dispensed Refills Start Date End Date Status mirtazapine (REMERON Take 45 mg by 0 Active JAKE-TAB) 15 MG mouth nightly. disintegrating tablet HYDROcodone-acetamin Take 2 tablets 0 Active ophen (NORCO) 10-325 by mouth every mg per 4 (four) hours tabletIndications: as needed for acute pain moderate pain .Acute Pain. promethazine Take 25 mg by 0 Act lev (PHENERGAN) 25 MG mouth 2 (two) tablet times a day as needed for nausea or vomiting. valsartan (DIOVAN) Take 160 mg by 0 Active 160 MG tablet mouth 2 (two) times a day. folic acid (FOLVITE) Take 1 mg by 0 Active 1 MG tablet mouth daily. ibuprofen (ADVIL) Take 600 mg by 0 Active 600 MG tablet mouth every 6 (six) hours as needed for mild pain. triamcinolone Apply topically 0 Active (KENALOG) 0.1 % 2 (two) times a ointment day. amLODIPine (NORVASC) Take 2.5 mg by 0 3 0/201 Discontinued 2.5 mg tablet mouth 2 (two) 9 times a day. oxyMORPHone (OPANA Take 40 mg by 0 01 Discontinued ER) 40 MG 12 hr mouth every 12 9 tablet (twelve) hours. metoprolol succinate Take 25 mg by 0 06/18 Discontinued XL (TOPROL-XL) 25 mg mouth daily. 9 24 hr tablet metoprolol tartrate Take 25 mg by 0 Discontinued (LOPRESSOR) 25 mg mouth 3 (three) 9 tablet times a day. hydroxyurea (HYDREA) Take by mouth 3 0 Discontinued 500 mg capsule (three) times a 9 day. ALPRAZolam (XANAX) 2 Take 2 mg by 0 Discontinued MG tablet mouth 2 (two) 9 times a day as needed for anxiety. Active Problems Problem Noted Date Sickle cell anemia with crisis 06/17/2019 Encounters Date Type Specialty Care Team Description 06/17/2019 - Hospital Encounter General Internal Manny Ambrizl e cell anemia 06/23/2019 Medicine MD Carlos with crisis (HC C) (Primary Dx) after 02/22/2019 Immunizations Name Administration Dates Next Due FLUCELVAX QUAD PF 06/23/2019 (), 06/18/2019 () Pneumococcal Conjugate 13-Valent 06/23/2019 (), 06/18/2019 ( ) Family History Medical History Relation Name Comments Heart disease Father Relation Name Status Comments Father Social History Tobacco Use Types Packs/Day Years Used Date Never Smoker Smokeless Tobacco: Never Used Sex Assigned at Date Recorded Not on file Job Start Date Occupation Industry Not on file Not on file Not on file Travel History Travel Start Travel End No recent travel history available. Last Filed Vital Signs Vital Sign Reading Time Taken Comments Blood Pressure 126/87 06/23/2019 11:56 AM COLLET MAKING MACHINE OPERATOR Pulse 85 06/23/2019 11:56 AM COLLET MAKING MACHINE OPERATOR Temperature 36.7 C (98.1 F) 06/23/2019 11:56 AM COLLET MAKING MACHINE OPERATOR Respiratory Rate 19 06/23/2019 11:56 AM COLLET MAKING MACHINE OPERATOR Oxygen Saturation 98% 06/23/2019 1:08 PM COLLET MAKING MACHINE OPERATOR Inhaled Oxygen Concentration - - Weight 76.7 kg (169 lb) 06/23/2019 3:08 AM COLLET MAKING MACHINE OPERATOR Height 160 cm (5' 3") 06/17/2019 8:13 PM CDT Body Mass Index 29.94 06/17/2019 8:13 PM CDT Plan of Treatment Health Maintenance Due Date Last Done Comments CERVICAL CANCER SCREENING 2000 INFLUENZA VACCINE 03/20/2020 Procedures Procedure Name Priority Date/Time Associated Comments Diagnosis MANUAL DIFFERENTIAL Routine 06/23/2019 6:12 Resu lts for this AM COLLET MAKING MACHINE OPERATOR procedure are i n the results section. ESTIMATED GFR Routine 06/23/2019 6:12 Results fo r this AM COLLET MAKING MACHINE OPERATOR procedure are i n the results section. CBC WITH PLATELET AND Routine 06/23/2019 6:12 Re sults for this DIFFERENTIAL AM COLLET MAKING MACHINE OPERATOR procedure are i n the results section. BASIC METABOLIC PANEL Routine 06/23/2019 6:12 Re sults for this AM COLLET MAKING MACHINE OPERATOR procedure are i n the results section. SMEAR REVIEW Routine 06/22/2019 6:10 Results for this AM COLLET MAKING MACHINE OPERATOR procedure are i n the results section. HC COMPLETE BLD COUNT Routine 06/22/2019 6:10 Re sults for this W/AUTO DIFF AM COLLET MAKING MACHINE OPERATOR procedure are i n the results section. SMEAR REVIEW Routine 06/21/2019 5:30 Results for this AM CDT procedure are i n the results section. ESTIMATED GFR Routine 06/21/2019 5:30 Results fo r this AM CDT procedure are i n the results section. MAGNESIUM LEVEL Routine 06/21/2019 5:30 Results for this AM CDT procedure are i n the results section. BASIC METABOLIC PANEL Routine 06/21/2019 5:30 Re sults for this AM CDT procedure are i n the results section. HC COMPLETE BLD COUNT Routine 06/21/2019 5:30 Re sults for this W/AUTO DIFF AM CDT procedure are i n the results section. SMEAR REVIEW Routine 06/20/2019 6:00 Results for this AM CDT procedure are i n the results section. ESTIMATED GFR Routine 06/20/2019 6:00 Results fo r this AM CDT procedure are i n the results section. HC COMPLETE BLD COUNT Routine 06/20/2019 6:00 Re sults for this W/AUTO DIFF AM CDT procedure are i n the results section. BASIC METABOLIC PANEL Routine 06/20/2019 6:00 Re sults for this AM CDT procedure are i n the results section. POC GLUCOSE Routine 06/19/2019 8:54 Results for this PM CDT procedure are i n the results section. POC GLUCOSE Routine 06/19/2019 5:26 Results for this PM CDT procedure are i n the results section. POC GLUCOSE Routine 06/19/2019 11:37 Results for this AM CDT procedure are i n the results section. POC GLUCOSE Routine 06/19/2019 6:37 Results for this AM CDT procedure are i n the results section. US ABDOMEN COMPLETE Routine 06/19/2019 6:15 Resu lts for this AM CDT procedure are i n the results section. MANUAL DIFFERENTIAL Routine 06/19/2019 5:48 Resu lts for this AM CDT procedure are i n the results section. ESTIMATED GFR Routine 06/19/2019 5:48 Results fo r this AM CDT procedure are i n the results section. MAGNESIUM LEVEL Routine 06/19/2019 5:48 Results for this AM CDT procedure are i n the results section. IONIZED CALCIUM Routine 06/19/2019 5:48 Results for this AM CDT procedure are i n the results section. CBC WITH PLATELET AND Routine 06/19/2019 5:48 Re sults for this DIFFERENTIAL AM CDT procedure are i n the results section. BASIC METABOLIC PANEL Routine 06/19/2019 5:48 Re sults for this AM CDT procedure are i n the results section. SMEAR REVIEW Routine 06/18/2019 5:40 Results for this PM CDT procedure are i n the results section. HEMOGLOBIN & HEMATOCRIT Routine 06/18/2019 5:40 Results for this PM CDT procedure are i n the results section. TRANSFUSE RED BLOOD Routine 06/18/2019 5:32 CELLS PM CDT TRANSFUSE RED BLOOD Routine 06/18/2019 2:04 CELLS PM CDT XR SHOULDER 2+ VW RIGHT Routine 06/18/2019 12:57 Results for this PM CDT procedure are i n the results section. MANUAL DIFFERENTIAL Routine 06/18/2019 5:10 Resu lts for this AM CDT procedure are i n the results section. ESTIMATED GFR Routine 06/18/2019 5:10 Results fo r this AM CDT procedure are i n the results section. MAGNESIUM LEVEL Routine 06/18/2019 5:10 Results for this AM CDT procedure are i n the results section. IONIZED CALCIUM Routine 06/18/2019 5:10 Results for this AM CDT procedure are i n the results section. TROPONIN Timed 06/18/2019 5:10 Results for this AM CDT procedure are i n the results section. CBC WITH PLATELET AND Routine 06/18/2019 5:10 Re sults for this DIFFERENTIAL AM CDT procedure are i n the results section. BASIC METABOLIC PANEL Routine 06/18/2019 5:10 Re sults for this AM CDT procedure are i n the results section. POC GLUCOSE Routine 06/18/2019 4:52 Results for this AM CDT procedure are i n the results section. POTASSIUM LEVEL Routine 06/18/2019 1:10 Results for this AM CDT procedure are i n the results section. POC GLUCOSE Routine 06/18/2019 1:08 Results for this AM CDT procedure are i n the results section. BLOOD CULTURE, AEROBIC Routine 06/17/2019 11:30 R esults for this & ANAEROBIC PM CDT procedure are i n the results section. PREPARE RBC Routine 06/17/2019 10:30 Results for this PM CDT procedure are i n the results section. ELUTION Routine 06/17/2019 10:30 Results for this PM CDT procedure are i n the results section. POSITIVE MEGHAN REFLEX Routine 06/17/2019 10:30 Resu lts for this WITH SALINE PM CDT procedure are i n the results section. DIRECT CESAR' (MEGHAN) Routine 06/17/2019 10:30 Res ults for this PM CDT procedure are i n the results section. E ANTIGEN PATIENT Routine 06/17/2019 10:30 Result s for this TYPING (LITTLE E) PM CDT procedure are in the results section. E ANTIGEN PATIENT Routine 06/17/2019 10:30 Result s for this TYPING PM CDT procedure are i n the results section. AMELIE ANTIGEN PATIENT Routine 06/17/2019 10:30 Res ults for this TYPING PM CDT procedure are i n the results section. C ANTIGEN PATIENT Routine 06/17/2019 10:30 Result s for this TYPING PM CDT procedure are i n the results section. C ANTIGEN PATIENT Routine 06/17/2019 10:30 Result s for this TYPING (LITTLE C) PM CDT procedure are in the results section. ANTIBODY IDENTIFICATION Routine 06/17/2019 10:30 Results for this PM CDT procedure are i n the results section. MANUAL DIFFERENTIAL Routine 06/17/2019 10:30 Resu lts for this PM CDT procedure are i n the results section. LACTIC ACID LEVEL Routine 06/17/2019 10:30 Result s for this PM CDT procedure are i n the results section. TROPONIN Timed 06/17/2019 10:30 Results for this PM CDT procedure are i n the results section. ESTIMATED GFR Routine 06/17/2019 10:30 Results fo r this PM CDT procedure are i n the results section. COMPREHENSIVE METABOLIC Routine 06/17/2019 10:30 Results for this PANEL PM CDT procedure are i n the results section. PHOSPHORUS LEVEL Routine 06/17/2019 10:30 Results for this PM CDT procedure are i n the results section. MAGNESIUM LEVEL Routine 06/17/2019 10:30 Results for this PM CDT procedure are i n the results section. CBC WITH PLATELET AND Routine 06/17/2019 10:30 Re sults for this DIFFERENTIAL PM CDT procedure are i n the results section. TYPE AND SCREEN Routine 06/17/2019 10:30 Results for this PM CDT procedure are i n the results section. GENERAL Routine 06/17/2019 10:10 Sickle cell anemia Resul ts for this PM CDT with crisis (HCC) procedure are in the results section. URINALYSIS SCREEN AND Routine 06/17/2019 9:40 Re sults for this MICROSCOPY, WITH REFLEX PM CDT proc edure are in TO CULTURE the results section. URINE CULTURE Routine 06/17/2019 9:40 Results fo r this PM CDT procedure are i n the results section. ECG 12-LEAD STAT 06/17/2019 8:54 Results for this PM CDT procedure are i n the results section. XR CHEST 1 VW PORTABLE Routine 06/17/2019 8:42 R esults for this PM CDT procedure are i n the results section. after 02/22/2019 Results Estimated GFR (06/23/2019 6:12 AM COLLET MAKING MACHINE OPERATOR)Only the most recent of6 resultswithin the time period is included. Estimated GFR >=90 mL/min/1.73 [facility] Comment: m2 [place] Catergory Units Interpretation HOS PITAL G1 >=90 Normal or high G2 60-89 Mildly decreased G3a 45-59 Mildly to moderately decreas ed G3b 30-44 Moderately to severely decre ased G4 15-29 Severely decreased G5 <15 Kidney failure The eGFR was calculated using the Chronic Kidney Disea se Epidemiology Collaboration (CKD-EPI) equation. Interpretation is based on recommendations of the National Kidney Foundation-Kidney Disease Outcomes Derik lity Initiative (NKF-KDOQI) published in 2014. Specimen Plasma specimen Performing Organization Address City/State/Zipcode Phone Number [facility] DEPARTMENT OF PATHOLOGY [address] [facility] X [phone] AND [facility] [id number] [place] [address] X [phone] HOSPITAL Manual differential (06/23/2019 6:12 AM COLLET MAKING MACHINE OPERATOR)Only the most recent of4 results within the time period is included. Manual differential PERFORMED [facility] Neutrophils 57.0 39.0 - 69.0 [facility] Lymphocytes 30.0 25.0 - 45.0 [facility] Monocytes 11.0 (H) 0.0 - 10.0 % [facility] Eosinophils 2.0 0.0 - 5.0 % [facility] Basophils 1.0 0.0 - 1.0 % [facility] Nucleated RBC 14 /100 WBC [place] Comment: [facility] NRBC results have been factored into the WBC count. [facility] No further calculation is needed. Platelet slide review Reggie slt decr (A) [facility] Dohle bodies Occasional [facility] Toxic granulation Slight [facility] Neutrophils, Slight [place] vacuolated [facility] Anisocytosis Moderate [facility] Polychromasia Moderate [facility] Schistocytes Occasional [facility] Target cells Many (A) [facility] Sickle cells Occasional (A) [facility] [place] bodies Occasional [facility] Enlarged platelets Moderate (A) [facility] Giant platelets Occasional [facility] Elliptocytes Moderate (A) [facility] Specimen Performing Organization Address City/State/Zipcode Phone Number [facility] DEPARTMENT OF PATHOLOGY [address] [facility] X [phone] AND [facility] [address] [facility] [place] [address] [facility] CBC with platelet and differential (06/23/2019 6:12 AM COLLET MAKING MACHINE OPERATOR)Only the most recent of7 resultswithin the time period is included. WBC 12.6 (H)Comment: 4.5 - 11.0 [facility] WBC was corrected k/uL [facility] RBC 2.24 (L) 4.20 - 5.50 [facility] m/uL [facility] HGB 6.7 (LL) 12.0 - 16.0 [facility] Comment: g/dL DEXTER Result reviewed and called with read back to Diogenes CruzRN/6E 06:46 HOSPITAL 06/23/2019 slel HCT 21.1 (L) 37.0 - 47.0 % [facility] MCV 94.2 82.0 - 100.0 [facility] MCH 29.9 27.0 - 34.0 pg [facility] MCHC 31.8 31.0 - 37.0 [facility] g/dL [facility] RDW - SD 87.6 (H) 37.0 - 55.0 fL [facility] MPV 11.2 (H) 6.9 - 11.0 fL [facility] Platelet count 142 (L) 150 - 400 K/uL [facility] Nucleated RBC 10.30 /100 WBC [facility] Neutrophils 57.0 39.0 - 69.0 % [facility] Lymphocytes 30.0 25.0 - 45.0 % [facility] Monocytes 11.0 (H) 0.0 - 10.0 % [facility] Eosinophils 2.0 0.0 - 5.0 % [facility] Basophils 1.0 0.0 - 1.0 % [facility] Specimen Blood Performing Organization Address City/State/Zipcode Phone Number [facility] DEPARTMENT OF PATHOLOGY [address] [facility] [place] [address] AND GENOMIC MEDICINE [facility] [address] [facility] [place] [address] HOSPITAL Basic metabolic panel (06/23/2019 6:12 AM COLLET MAKING MACHINE OPERATOR)Only the most recent of5 results within the time period is included. Pathologist Sig nature Sodium 141 135 - 148 mEq/L [facility] Potassium 5.3 (H) 3.5 - 5.0 mEq/L [facility] Chloride 103 98 - 112 mEq/L [facility] CO2 30 24 - 31 mEq/L [facility] Anion gap 8@ANIO 7 - 15 mEq/L [facility] BUN 6 6 - 20 mg/dL [facility] Creatinine 0.46 (L) 0.50 - 0.90 mg/dL [facility] Glucose 113 (H) 65 - 99 mg/dL [facility] Calcium 9.2 8.3 - 10.2 mg/dL [facility] Specimen Plasma specimen Performing Organization Address City/[facility]/Zipcode Phone Number [facility] DEPARTMENT OF PATHOLOGY [address] [place] [address] Smear review (06/22/2019 6:10 AM COLLET MAKING MACHINE OPERATOR)Only the most recent of4 resultswithin the time period is included. Platelet slide review Reggie adequate [facility] Anisocytosis Moderate [facility] Target cells Many (A) [facility] Ovalocytes Moderate [facility] Sickle cells Occasional (A) [facility] [place] bodies Occasional [facility] Elliptocytes Occasional [facility] Specimen Performing Organization Address [facility] Phone Number [facility] DEPARTMENT OF PATHOLOGY [address] [place] [address] Magnesium level (06/21/2019 5:30 AM CDT)Only the most recent of4 resultswithin the time period is included. Pathologist Sig nature Magnesium 1.6 1.6 - 2.6 mg/dL [facility] Specimen Plasma specimen Performing Organization Address City/[facility] Phone Number [facility] DEPARTMENT OF PATHOLOGY [address] [place] [address] POC glucose (06/19/2019 8:54 PM CDT)Only the most recent of6 resultswithin the time period is included. Pathologist Sig nature POC glucose 101 (H) 65 - 99 mg/dL [facility] Comment: [facility] RN Notified Meter ID: [id number] Production Control Technologist: Zeb Smith Specimen Performing Organization Address City/State/Zipcode Phone Number [facility] DEPARTMENT OF PATHOLOGY [address] [facility] [place] [address] AND GENOMIC MEDICINE [facility] [place] [facility] [address] [facility] [place] [address] [facility] US Abdomen Complete (06/19/2019 6:15 AM CDT) Specimen Narrative Performed At EXAM: US ABDOMEN COMPLETE [facility] CLINICAL DATA: transaminitis TECHNIQUE: Sonographic evaluation of the abdomen was performed. COMPARISON: NONE. IMPRESSION: 1.Coarse hepatic echotexture and undulating contour, s uspicious for cirrhosis. There are no discrete lesions. There is no evidence of intrahepatic biliary ductal dilation The common bile d uct is ectatic, likely postcholecystectomy change. The p ortal vein is patent with normal hepatopetal flow. 2.Cholecystectomy. 3.Limited views of the pancreas are unre markable. 4.Complex cyst in the right kidney with thick and sept ated wall as well as punctate echogenic foci/possible calcifications. Re commend multiphase renal protocol CT for further characterization. The ki dneys are normal size. The kidneys have normal echogenicity. Vascular flow is unremarkable. There is no evidence of hydronephrosis, perinephric fluid, or ca lculus. 5.Splenectomy. 6.No evidence of ascites. 7.Inferior vena cava and aorta were not definitively v isualized due to overlying bowel gas. [id number] Procedure Note Interface, Radiology Results Incoming - 06/19/2019 8:30 AM CDT EXAM: US ABDOMEN COMPLETE CLINICAL DATA: transaminitis TECHNIQUE: Sonographic evaluation of the abdomen was performed. COMPARISON: NONE. IMPRESSION: 1.Coarse hepatic echotexture and undulat ing contour, suspicious for cirrhosis. There are no discrete lesions. There is no evidence of intrahepatic biliary ductal dilation The common bile duct is ectatic, likely postcholecystectomy change. The p ortal vein is patent with normal hepatopetal flow. 2.Cholecystectomy. 3.Limited views of the pancreas are unre markable. 4.Complex cyst in the right kidney with thick and septated wall as well as punctate echogenic foci/possible calcifications. Recommend multiphase renal protocol CT for further characterization. The kidneys are normal size. The kidneys have normal echogenicity. Vascular flow is unremarka ble. There is no evidence of hydronephrosis, perinephric fluid, or calculus. 5.Splenectomy. 6.No evidence of ascites. 7.Inferior vena cava and aorta were not definitively visualized due to overlying bowel gas. [id number] Performing Organization Address City/[facility]/Zipcode Phone Number [facility] [address] [place] [address] Ionized calcium (06/19/2019 5:48 AM CDT)Only the most recent of2 resultswithin the time period is included. [facility] pH 7.27 [facility] Ionized calcium 1.26 1.11 - 1.32 mmol/L [facility] Specimen Plasma specimen Performing Organization Address [facility] Phone Number [facility] DEPARTMENT OF PATHOLOGY [id number] [place] [address] X [phone] AND [facility] [id number] [place] [phone] [place] [address] Hemoglobin & hematocrit (06/18/2019 5:40 PM CDT) [facility] HGB 7.2 (L) 12.0 - 16.0 g/dL [facility] HCT 22.7 (L) 37.0 - 47.0 % [facility] Specimen Blood Performing Organization Address [facility] Phone Number [facility] DEPARTMENT OF PATHOLOGY [id number] [place] [address] X [phone] AND [facility] [id number] [place] [phone] [facility] Transfuse RBC (06/18/2019 5:32 PM CDT)Only the most recent of2 resultswithin the time period is included.XR Shoulder 2+ Vw Right (06/18/2019 12:57 PM CDT) Specimen Narrative Performed At EXAMINATION: XR SHOULDER 2 VW RIGHT [facility] CLINICAL HISTORY: Humerus fracture COMPARISON: None. IMPRESSION: 1. Transverse fracture through the right mid humeral d iaphysis demonstrates medial displacement of the distal fragmen t by one full shaft width, likely with at least half shaft width ant erior displacement. 2. Glenohumeral and acromioclavicular relationships ar e within normal limits. Findings were discussed with patient's nurse at 1411. They are aware of the fracture. [facility]-[id number] Procedure Note Interface, Radiology Results Incoming - 06/18/2019 2:14 PM CDT EXAMINATION: XR SHOULDER 2 VW RIGHT CLINICAL HISTORY: Humerus fracture COMPARISON: None. IMPRESSION: 1. Transverse fracture through the right mid humeral diaphysis demonstrates medial displacement of the distal fragment by one full shaft width, likely with at least half shaft width anterior displacement. 2. Glenohumeral and acromioclavicular re lationships are within normal limits. Findings were discussed with patient's lasha rosas at 1411. They are aware of the fracture. [facility]-[id number] Performing Organization Address City/[facility]/Zipcode Phone Number [facility] [address] [place] [address] Troponin (06/18/2019 5:10 AM CDT)Only the most recent of2 resultswithin the time period is included. Pathologist [facility] Troponin 0.006 0.000 - 0.040 [facility] Comment: ng/mL [facility] [place] [facility] changed methodology eff ective: HOSPITAL 12/24/2018 at 10:00 am The new method has a 99th percentile cutoff of 0.040 n g/mL Specimen Plasma specimen Performing Organization Address [facility] Phone Number [facility] DEPARTMENT OF PATHOLOGY [address] [place] [address] [employer], [place] [phone] AND [employer] [facility] [id number] [place] [address] [place], [place] X [address] HOSPITAL Potassium level (06/18/2019 1:10 AM CDT) Pathologist [facility] Potassium 4.2 3.5 - 5.0 mEq/L [facility] Specimen Plasma specimen Performing Organization Address [facility]/Rehabilitation [facility] Phone Number [facility] DEPARTMENT OF PATHOLOGY [id number] [place] [address] [employer], [place] [phone] AND [employer] [facility] [id number] [place] [address] [employer], [place] X [address] HOSPITAL Blood culture, aerobic & anaerobic (06/17/2019 11:30 PM CDT) Pathologist [facility] Blood culture No growth after 5 days of incubation. MORGAN ESCUDERO isolate Comment: HOSPITAL Specimen Information Specimen Source: Blood Specimen Site: Antecubital, right Specimen Blood - Antecubital, right Performing Organization Address City/[facility]/Zipcode Phone Number [facility] DEPARTMENT OF PATHOLOGY AND [address] [place], [place] [address] [facility] [address] [place] [address] [place] antigen patient typing (06/17/2019 10:30 PM CDT) Pathologist Sig nature Amelie Antigen Patient NEG [facility] GAR [facility] Specimen Performing Organization Address [facility] Phone Number [facility] DEPARTMENT OF PATHOLOGY [address] [place] [address], X [phone] AND [facility] [id number] [place] [address] X [address] HOSPITAL e Antigen patient typing (little e) (06/17/2019 10:30 PM CDT) Pathologist Sig nature e Antigen Patient Typing POS [facility] (little e) [facility] Specimen Performing Organization Address [facility] Phone Number [facility] DEPARTMENT OF PATHOLOGY [address] [place] [address], X [address] AND [facility] [id number] [place] [address] [facility] Direct Cesar' (MEGHAN) (06/17/2019 10:30 PM CDT) Pathologist Sig nature [id number] Polyspecific POS [facility] Specimen Performing Organization Address [facility] Phone Number [facility] DEPARTMENT OF PATHOLOGY [address] [place] [address], [place] [address] [address] [facility] c Antigen patient typing (little c) (06/17/2019 10:30 PM CDT) Pathologist Sig nature c Antigen Patient Typing NEG [facility] (little c) [facility] Specimen Performing Organization Address [facility] Phone Number [facility] DEPARTMENT OF PATHOLOGY [address] [place] [address], X [address] [place] [address] [facility] Positive MEGHAN reflex with saline (06/17/2019 10:30 PM CDT) Pathologist Sig nature IgG Cesar, gel [facility] Anti-complement NEG [facility] Specimen Performing Organization Address City/State/Zipcode Phone Number [facility] DEPARTMENT OF PATHOLOGY [address] [place] [address] AND [facility] [address] [place] [address] [facility] [phone] [place] [address]. [place] [address] HOSPITAL E antigen patient typing (06/17/2019 10:30 PM CDT) Pathologist Sig nature E Antigen Patient Typing NEG [facility] Specimen Performing Organization Address City/State/Zipcode Phone Number [facility] DEPARTMENT OF PATHOLOGY [id number] [place] [address]. [place] [phone] AND [facility] [id number] [place] [address]. [place] [address] HOSPITAL C antigen patient typing (06/17/2019 10:30 PM CDT) Pathologist Sig nature C Antigen Patient Typing POS [facility] Specimen Performing Organization Address City/State/Zipcode Phone Number [facility] DEPARTMENT OF PATHOLOGY [phone] [place] [address]. [place] [address] AND [facility] [id number] [place] [address]. [place] [phone] HOSPITAL Elution (06/17/2019 10:30 PM CDT) Pathologist Sig nature Elution NEG [facility] Specimen Performing Organization Address City/State/Zipcode Phone Number [facility] DEPARTMENT OF PATHOLOGY [id number] [place] [address]. [place] [address] AND [facility] [id number] [place] [address]. [place] [phone] HOSPITAL Antibody identification (06/17/2019 10:30 PM CDT) Antibody ID POS, Anti-E PRATEEK ESCUDERO Comment: HOSPITAL Patient has a history of Anti-c, Anti-E, Anti-Cw, Anti -S, Anti-Wra and a cold agglutinin. All of the alloantibodies can cause red cell damage and are clinically significant. Red cells for transfusio n will phenotypically matched, sickle cell negative and cross match compatible. Verified by [id number]. Antibody ID POS, Anti-c (little) PRATEEK ESCUDERO Comment: HOSPITAL Patient has a history of Anti-c, Anti-E, Anti-Cw, Anti -S, Anti-Wra and a cold agglutinin. All of the alloantibodies can cause red cell damage and are clinically significant. Red cells for transfusio n will phenotypically matched, sickle cell negative and cross match compatible. Verified by 3176. Antibody ID POS, Anti-S PRATEEK ESCUDERO Comment: HOSPITAL Patient has a history of Anti-c, Anti-E, Anti-Cw, Anti -S, Anti-Wra and a cold agglutinin. All of the alloantibodies can cause red cell damage and are clinically significant. Red cells for transfusio n will phenotypically matched, sickle cell negative and cross match compatible. Verified by [id number]. Antibody ID POS, Undetermined Specificity [facility] Comment: HOSPITAL Patient has a history of Anti-c, Anti-E, Anti-Cw, Anti -S, Anti-Wra and a cold agglutinin. All of the alloantibodies can cause red cell damage and are clinically significant. Red cells for transfusio n will phenotypically matched, sickle cell negative and cross match compatible. Verified by [id number]. Specimen Performing Organization Address City/[facility]/Zipcode Phone Number [facility] DEPARTMENT OF PATHOLOGY AND [address] [place], [place] [phone] [facility] MEDICINE [address] [address] Prepare RBC, 2 Units (06/17/2019 10:30 PM CDT) Product name Red Blood Cells COLOMA -1, Leukored [facility] Unit number [id number] [facility] Product code [id number] [facility] Dispense status Transfused [facility] Blood expiration date [id number] [facility] Blood type code 5100 [facility] Blood type O POSITIVE [facility] Compatibility Compatible [facility] Product name Red Blood Cells COLOMA -1, Leukored [facility] Unit number [id number] [facility] Product code [id number] [facility] Dispense status Transfused [facility] Blood expiration date [id number] [facility] Blood type code 5100 [facility] Blood type O POSITIVE [facility] Compatibility Compatible [facility] Specimen Blood Performing Organization Address City/State/Zipcode Phone Number [facility] DEPARTMENT OF PATHOLOGY [phone] [place] [address] X [address] AND [facility] [phone] [place] [address] X [address] HOSPITAL Type and screen (06/17/2019 10:30 PM CDT) ABO grouping O [facility] Rh type POS [facility] Antibody screen POS [facility] (gel) Comment: [facility] Results called to Cristal Montes , RN 06/18/19 a t 00:05 with readback. HOSPITAL Specimen sent to [facility] for anti body identification. Allow 4-6 hours for compatible blood if needed. Specimen Blood Performing Organization Address City/[facility]/Zipcode Phone Number [facility] DEPARTMENT OF PATHOLOGY [address] [place] [address] X [phone] [place] [address] HOSPITAL Phosphorus level (06/17/2019 10:30 PM CDT) Pathologist Sig nature Phosphorus 4.2 2.4 - 4.5 mg/dL [facility] Specimen Plasma specimen Performing Organization Address City/[facility]/Zipcode Phone Number [facility] DEPARTMENT OF PATHOLOGY [address] [place] [address] X [address] AND [facility] [id number] [place] [address] [facility] Lactic acid level (06/17/2019 10:30 PM CDT) Pathologist Sig nature Lactic acid 0.7 0.5 - 2.2 mmol/L [facility] Specimen Plasma specimen Performing Organization Address City/[facility]/Zipcode Phone Number [facility] DEPARTMENT OF PATHOLOGY [address] [place] [address] X [phone] AND [facility] [id number] [place] [address] [facility] Comprehensive metabolic panel (06/17/2019 10:30 PM CDT) Sodium 137 135 - 148 [facility] mEq/L [facility] Potassium 5.7 (H)Comment: 3.5 - 5.0 [facility] Specimen slightly mEq/L [facility] hemolyzed. HOSPITAL Interpret results accordingly. Chloride 107 98 - 112 [facility] mEq/L [facility] CO2 22 (L) 24 - 31 mEq/L [facility] Anion gap 8@ANIO 7 - 15 mEq/L [facility] BUN 11 6 - 20 mg/dL [facility] Creatinine 0.60 0.50 - 0.90 [facility] mg/dL [facility] Glucose 90 65 - 99 mg/dL [facility] Calcium 9.5 8.3 - 10.2 [facility] mg/dL [facility] Protein 8.7 (H) 6.3 - 8.3 [facility] g/dL [facility] Albumin 3.6 3.5 - 5.0 [facility] g/dL [facility] A/G ratio 0.7 0.7 - 3.8 [facility] Alkaline 146 (H) 35 - 104 U/L [facility] phosphatase [facility] AST 210 (H) 10 - 35 U/L [facility] ALT 88 (H) 5 - 50 U/L [facility] Total bilirubin 2.5 (H) 0.2 - 1.2 [facility] mg/dL [facility] Specimen Plasma specimen Performing Organization Address City/State/Zipcode Phone Number [facility] DEPARTMENT OF PATHOLOGY [address] [facility] [place] [address] AND GENOMIC MEDICINE [facility] [address] [facility] [address] [address] [facility] Left arm midline (06/17/2019 10:10 PM CDT) Narrative Performed At Charlee Norton NP-C 10:32 PM Left arm midline Date/Time: 06/17/2019 10:10 PM Performed by: Charlee Norton NP-C Authorized by: Charlee Norton NP-C Consent: Consent obtained: Verbal Consent given by: Patient Risks discussed: Bleeding, incomple te drainage, infection, nerve damage, pain and poor cosmetic result Alternatives discussed: Delayed jessica atment [place] protocol: Procedure explained and questions ans wered to patient or proxy's satisfaction: yes Relevant documents present and verifi ed: yes Test results available and properly l abeled: yes Imaging studies available: yes Required blood products, implants, de vices, and special equipment available: yes Immediately prior to procedure, a kalina e out was called: yes Patient identity confirmed: Verbally with patient and hospital-assigned identification number Indications: Indications: No peripheral access, malfunctioned RCW port Pre-procedure details: Skin preparation: ChloraPrep Preparation: Patient was prepped and draped in the usual sterile fashion Anesthesia (see MAR for exact dosages): Anesthesia method: Local infiltrati on Local anesthetic: Lidocaine 1% w/o epi Post-procedure details: Patient tolerance of procedure: Margret erated well, no immediate complications Urinalysis screen and microscopy, with reflex to culture (06/17/2019 9:40 PM CDT) Specimen site Clean catch [facility] Color, UA Yellow [facility] Appearance, UA Clear [facility] Specific gravity, UA 1.012 1.001 - 1.030 [facility] pH, UA 5.0 5.0 - 9.0 [facility] Protein, UA Negative Negative [facility] Glucose, UA Negative Negative [facility] Ketones, UA Negative Negative [facility] Bilirubin, UA Negative Negative [facility] Blood, UA Small (A) Negative [facility] Nitrite, UA Negative Negative [facility] Urobilinogen, UA <2.0 <2.0 E.U./dL [facility] Leukocyte esterase, Negative Negative [facility] Epithelial cells, UA 2 /HPF [facility] Round epithelial <1 0 - 5 /HPF [facility] cells, [facility] WBC, UA 2 0 - 4 /HPF [facility] RBC, UA 3 0 - 5 /HPF [facility] Bacteria, UA Few None seen [facility] Yeast, UA None seen [facility] Yeast with None seen [facility] pseudohyphae, UA [facility] Hyaline casts, UA 0-2 /LPF [facility] Specimen Urine Performing Organization Address City/State/Zipcode Phone Number [facility] DEPARTMENT OF PATHOLOGY [address] [facility] [address] AND GENOMIC MEDICINE [facility] [address] [facility] X [address] HOSPITAL Urine culture (06/17/2019 9:40 PM CDT) Pathologist Sig nature Urine culture SEE COMMENTComment: [facility] Bacteriuria screen [facility] negative. Specimen Performing Organization Address City/[facility]/Zipcode Phone Number [facility] DEPARTMENT OF PATHOLOGY [address] [facility], [place] [address] AND GENOMIC MEDICINE [facility] [address] [facility], [place] [address] HOSPITAL ECG 12 lead (06/17/2019 8:54 PM CDT) Pathologist Sig nature Ventricular rate 92 [facility] Atrial rate 92 [facility] IN interval 180 [facility] QRSD interval 88 [facility] QT interval 380 [facility] QTC interval 469 [facility] P axis 1 58 [facility] QRS axis 1 23 [facility] T wave axis 51 [facility] EKG impression Normal sinus [facility] MUSE rhythm-Minimal voltage criteria for LVH, may be normal variant-Borderline ECG-No previous ECGs available-Electronicall y Signed By Gold VERAS, Kelvin Sanchez (2007) on 06/18/2019 8:24:22 PM Specimen Narrative Performed At This result has an attachment that is no t available. Performing Organization Address [facility] Phone Number [employer] [address] [place] [address] XR Chest 1 Vw Portable (06/17/2019 8:42 PM CDT) Specimen Narrative Performed At EXAMINATION: XR CHEST 1 VW PORTABLE [facility] CLINICAL HISTORY: ICU pt stable with no clinical status changes COMPARISON: None IMPRESSION: 1. The cardiac silhouette is mildly enlarged. Vasculat ure is within normal limits. 2. There is no confluent infiltrate or e ffusion. 3. Portacatheter tip is in the SVC. Ther e is no acute osseous pathology. [facility]-[id number] Procedure Note Hm Interface, Radiology Results Incoming - 06/17/2019 9:18 PM CDT EXAMINATION: XR CHEST 1 VW PORTABLE CLINICAL HISTORY: ICU pt stable with n o clinical status changes COMPARISON: None IMPRESSION: 1. The cardiac silhouette is mildly enla rged. Vasculature is within normal limits. 2. There is no confluent infiltrate or e ffusion. 3. Portacatheter tip is in the SVC. Ther e is no acute osseous pathology. 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
--- OUTSIDE RECORDS SUMMARY | 2020-02-23 07:47 | XMS REPORT | Clinical Summary ---
:1980 Author Organization [facility] Address [address] [place] [address] Care Team Providers Name Role Phone Justin Guaman MD Primary Care Provider Unavailable [facility] Unavailable Allergies Active Allergy Reactions Severity Noted Date Comments Dexchlorpheniram-Phenyleph Other (See Comments) 2019 Unknown reaction rine and severity Fentanyl Hives, Itching, Rash Low 09/25/2019 Mirtazapine Other (See Comments) 09/25/2019 Unknown reaction and severity fr om 2017 Morphine Hives, Itching, High 11/27/2013 seizures Other (See Comments) Metoclopramide Hcl Other (See Comments) High 12/30/2018 S eizures Butorphanol Tartrate Other (See Comments) High 11/27/2013 seizures Vkz-Qj-Fwg-Atropine-Hyosc- Other (See Comments) High 2014 seizure Scop Ketorolac Other (See Comments) High 11/27/2013 seizure s Tramadol Other (See Comments) High 02/21/2014 Seizure Trazodone Other (See Comments) High 10/01/2014 seizure Ondansetron Hcl (Pf) Other (See Comments) High 11/27/2013 seizures Medications Medication Sig Dispensed Refills Start Date End Date Status folic acid Take 1 mg by 0 Active (FOLVITE) 1 MG mouth daily. tablet promethazine Take 25 mg by 0 Act lev (PHENERGAN) 25 MG mouth every 4 tablet (four) hours as needed for Nausea . HYDROcodone-acetami Take 2 tablets 0 Active nophen (NORCO by mouth every 10-325) 10-325 mg 4 (four) hours per as needed for tabletIndications: Pain. pain mirtazapine Take 45 mg by 0 Acti ve (REMERON) 45 MG mouth nightly. tabletIndications: major depressive disorder triamcinolone Apply topically 0 Active (KENALOG) 0.1 % 3 (three) times lotionIndications: daily as needed contact dermatitis, . a type of skin rash that occurs from contact with an offending substance, a skin rash clonazePAM Take 1 mg by 0 Active (KLONOPIN) 1 MG mouth 3 (three) tablet times daily. predniSONE Take 20 mg by 0 Disco ntinued (DELTASONE) 20 MG mouth daily. 9 tablet mINOCYCLine Take 100 mg by 0 Dis continued (MINOCIN,DYNACIN) mouth 2 (two) 9 100 MG capsule times daily. ibuprofen TK 1 T PO Q 8 3 12/13/2018 Disc ontinued (ADVIL,MOTRIN) 600 H WF PRN P. 9 MG tablet methocarbamol Take 1 tablet 0 07/21/2019 E xpired (ROBAXIN) 750 MG (750 mg total) 9 tablet by mouth 4 (four) times daily for 10 days. 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 10/01/2018 Sickle cell anemia 01/09/2016 Iron overload due to repeated red blood cell transfusi ons 11/29/2013 History of drug abuse 11/29/2013 Cough 11/28/2013 Encounters Date Type Specialty Care Team Description 12/23/2019 Travel 12/22/2019 - Hospital Encounter General Internal [place] Sever e anemia; 12/28/2019 Medicine Aaron, 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[facility]); MD Tyler GRAYSON (acute kidney injury) (HCC); Nicole, Abnormal liver enzymes MD Neal Headley Shamoon, MD 12/22/2019 Lab Requisition Lab 09/24/2019 - Hospital Encounter Oncology Lise De Jesus, 09/30/2019 09/24/2019 Travel 07/17/2019 Travel 07/12/2019 Anesthesia Event General Internal Oladute, Oluwole Medicine MD Bari 07/08/2019 - Hospital Encounter General Internal Emile, Will Sickl e cell crisis (HCC) (Primary Dx); 07/21/2019 Medicine III, DO Hyperkalemia; Bran, Leukocytosis, u nspecified type MD Radha 07/08/2019 Orders Only General Internal Medicine after 02/22/2019 Family History Medical History Relation Name Comments [...] Vital Sign Reading Time Taken Blood Pressure 137/84 12/28/2019 12:26 PM CDT Pulse 73 12/28/2019 1:15 PM CDT Temperature 36.3 C (97.4 F) 12/28/2019 12:26 PM CDT Respiratory Rate 18 12/28/2019 12:26 PM CDT Oxygen Saturation 100% 12/28/2019 1:15 PM CDT Inhaled Oxygen Concentration 21% 12/25/2019 8:48 PM CDT Weight 77.5 kg (170 lb 12.8 oz) 12/28/2019 6:0 0 AM CDT Height 160 cm (5' 3") 12/26/2019 6:00 AM CDT Body Mass Index 30.26 12/28/2019 6:00 AM CDT Plan of Treatment Health Maintenance Due Date Last Done Comments PNEUMOCOCCAL VACCINE 2-64 YEARS AT RISK (1 of 3 - 1985 PCV13) CERVICAL CANCER SCREENING PAP ONLY (Age 21-65) 2000 MEDICARE ANNUAL WELLNESS (YEAR 2 or FIRST YEAR if no 08/21/2018 IPPE) INFLUENZA VACCINE (Season Ended) 2020 Procedures Procedure Name Priority Date/Time Associated Comments Diagnosis RHYTHM STRIP - SCAN 12/30/2019 12:00 PM CDT (CELLAVISION MANUAL Routine 12/28/2019 4:29 Resu lts for this DIFF) AM CDT procedure are i n the results section. CBC W/PLT COUNT & AUTO Routine 12/28/2019 4:29 R esults for this DIFFERENTIAL AM CDT procedure are i n the results section. MAGNESIUM STAT 12/28/2019 4:29 Results for this AM CDT procedure are i n the results section. BASIC METABOLIC PANEL STAT 12/28/2019 4:29 Re sults for this (7) AM CDT procedure are i n the results section. CBC W/PLT COUNT & AUTO Routine 12/28/2019 4:29 R esults for this DIFFERENTIAL AM CDT procedure are i n the results section. TRANSFUSION SERVICE 12/27/2019 5:51 REPORT - SCAN PM CDT (CELLAVISION MANUAL Routine 12/27/2019 6:49 Resu lts for this DIFF) AM CDT procedure are i n the results section. CBC W/PLT COUNT & AUTO Routine 12/27/2019 6:49 R esults for this DIFFERENTIAL AM CDT procedure are i n the results section. MAGNESIUM STAT 12/27/2019 6:49 Results for this AM CDT procedure are i n the results section. BASIC METABOLIC PANEL STAT 12/27/2019 6:49 Re sults for this (7) AM CDT procedure are i n the results section. CBC W/PLT COUNT & AUTO Routine 12/27/2019 6:49 R esults for this DIFFERENTIAL AM CDT procedure are i n the results section. VANCOMYCIN LEVEL, Timed 12/26/2019 8:19 Result s for this TROUGH AM CDT procedure are i n the results section. PREPARE RBC STAT 12/26/2019 4:32 Results for this AM CDT procedure are i n the results section. (CELLAVISION MANUAL Routine 12/26/2019 4:02 Resu lts for this DIFF) AM CDT procedure are i n the results section. CBC W/PLT COUNT & AUTO Routine 12/26/2019 4:02 R esults for this DIFFERENTIAL AM CDT procedure are i n the results section. MAGNESIUM STAT 12/26/2019 4:02 Results for this AM CDT procedure are i n the results section. BASIC METABOLIC PANEL STAT 12/26/2019 4:02 Re sults for this (7) AM CDT procedure are i n the results section. CBC W/PLT COUNT & AUTO Routine 12/26/2019 4:02 R esults for this DIFFERENTIAL AM CDT procedure are i n the results section. (CELLAVISION MANUAL Routine 12/25/2019 4:10 Resu lts for this DIFF) AM CDT procedure are i n the results section. CBC W/PLT COUNT & AUTO Routine 12/25/2019 4:10 R esults for this DIFFERENTIAL AM CDT procedure are i n the results section. PHOSPHORUS Routine 12/25/2019 4:10 Results for this AM CDT procedure are i n the results section. HEPATIC FUNCTION PANEL Routine 12/25/2019 4:10 R esults for this AM CDT procedure are i n the results section. MAGNESIUM STAT 12/25/2019 4:10 Results for this AM CDT procedure are i n the results section. BASIC METABOLIC PANEL STAT 12/25/2019 4:10 Re sults for this (7) AM CDT procedure are i n the results section. CBC W/PLT COUNT & AUTO Routine 12/25/2019 4:10 R esults for this DIFFERENTIAL AM CDT procedure are i n the results section. TRANSFUSION SERVICE 12/24/2019 8:11 REPORT - SCAN PM CDT (CELLAVISION MANUAL Routine 12/24/2019 4:48 Resu lts for this DIFF) AM CDT procedure are i n the results section. CBC W/PLT COUNT & AUTO Routine 12/24/2019 4:48 R esults for this DIFFERENTIAL AM CDT procedure are i n the results section. PHOSPHORUS Routine 12/24/2019 4:48 Results for this AM CDT procedure are i n the results section. HEPATIC FUNCTION PANEL Routine 12/24/2019 4:48 R esults for this AM CDT procedure are i n the results section. MAGNESIUM STAT 12/24/2019 4:48 Results for this AM CDT procedure are i n the results section. BASIC METABOLIC PANEL STAT 12/24/2019 4:48 Re sults for this (7) AM CDT procedure are i n the results section. CBC W/PLT COUNT & AUTO Routine 12/24/2019 4:48 R esults for this DIFFERENTIAL AM CDT procedure are i n the results section. PREPARE LEUKO-REDUCED STAT 12/23/2019 11:54 Re sults for this RBC PM CDT procedure are i n the results section. VANCOMYCIN LEVEL, Timed 12/23/2019 8:02 Result s for this TROUGH PM CDT procedure are i n the results section. TRANSFUSION SERVICE 12/23/2019 6:00 REPORT - SCAN PM CDT CBC W/PLT COUNT & AUTO Routine 12/23/2019 3:52 R esults for this DIFFERENTIAL PM CDT procedure are i n the results section. CBC W/PLT COUNT & AUTO Routine 12/23/2019 3:52 R esults for this DIFFERENTIAL PM CDT procedure are i n the results section. HEMOGLOBIN AND Routine 12/23/2019 7:50 Results f or this HEMATOCRIT AM CDT procedure are i n the results section. (CELLAVISION MANUAL Routine 12/23/2019 2:20 Resu lts for this DIFF) AM CDT procedure are i n the results section. CBC W/PLT COUNT & AUTO Routine 12/23/2019 2:20 R esults for this DIFFERENTIAL AM CDT procedure are i n the results section. PHOSPHORUS Routine 12/23/2019 2:20 Results for this AM CDT procedure are i n the results section. HEPATIC FUNCTION PANEL Routine 12/23/2019 2:20 R esults for this AM CDT procedure are i n the results section. MAGNESIUM STAT 12/23/2019 2:20 Results for this AM CDT procedure are i n the results section. BASIC METABOLIC PANEL STAT 12/23/2019 2:20 Re sults for this (7) AM CDT procedure are i n the results section. CBC W/PLT COUNT & AUTO Routine 12/23/2019 2:20 R esults for this DIFFERENTIAL AM CDT procedure are i n the results section. HEMOGLOBIN AND Routine 12/23/2019 2:20 Results f or this HEMATOCRIT AM CDT procedure are i n the results section. TRANSFUSE LEUKO-REDUCED Routine 12/23/2019 1:08 RED BLOOD CELLS AM CDT TROPONIN I Routine 12/22/2019 9:21 Results for this PM CDT procedure are i n the results section. HEMOGLOBIN AND Routine 12/22/2019 7:08 Results f or this HEMATOCRIT PM CDT procedure are i n the results section. TRANSFUSE LEUKO-REDUCED STAT 12/22/2019 6:14 RED BLOOD CELLS PM CDT TRANSFUSE LEUKO-REDUCED STAT 12/22/2019 4:49 RED BLOOD CELLS PM CDT POTASSIUM, RANDOM URINE Routine 12/22/2019 4:33 Results for this PM CDT procedure are i n the results section. PROTEIN, RANDOM URINE Routine 12/22/2019 4:33 Re sults for this PM CDT procedure are i n the results section. CREATININE, RANDOM Routine 12/22/2019 4:33 Resul ts for this URINE PM CDT procedure are i n the results section. SODIUM, RANDOM URINE Routine 12/22/2019 4:33 Res ults for this PM CDT procedure are i n the results section. OSMOLALITY, URINE Routine 12/22/2019 4:33 Result s for this PM CDT procedure are i n the results section. ANTIBODY IDENTIFICATION STAT 12/22/2019 3:56 Results for this PM CDT procedure are i n the results section. ECG 12-LEAD Routine 12/22/2019 3:35 PM CDT Procedure Note - Interface, External Ris In - 12/22/2019 4:53 PM CDT Ventricular Rate 108 BPM Atrial Rate 108 BPM P-R Interval 158 ms QRS Duration 72 ms Q-T Interval 312 ms QTC Calculation(Bazett) 418 ms P Telferner 74 degrees R Telferner 39 degrees T Telferner 54 degrees Sinus tachycardia with occas ional Premature ventricular complexes Minimal voltage criteria for LVH, may be normal variant Borderline ECG When compared with ECG of 06:57, Premature ventricular comple xes are now Present ECG 12-LEAD STAT 12/22/2019 3:35 PM CDT Resu lts for this procedure are i n the results section . TROPONIN I Routine 12/22/2019 2:02 PM CDT Resu lts for this procedure are i n the results section . BLOOD CULTURE Routine 12/22/2019 2:01 PM CDT Res ults for this procedure are i n the results section . US ABDOMEN LIMITED STAT 12/22/2019 1:50 PM CDT Results for this procedure are i n the results section . URINALYSIS W/ REFLEX URINE STAT 12/22/2019 11:12 AM CDT Results for this CULTURE procedure are i n the results section . LEGIONELLA URINE ANTIGEN Routine 12/22/2019 11:12 AM CDT Results for this procedure are i n the results section . DRUG SCREEN, URINE, Routine 12/22/2019 11:12 AM CDT COMPREHENSIVE URINE CULTURE STAT 12/22/2019 11:12 AM CDT Res ults for this procedure are i n the results section . STREP PNEUMONIAE ANTIGEN Routine 12/22/2019 11:12 AM CDT Results for this procedure are i n the results section . MRSA SCREEN Routine 12/22/2019 10:57 AM CDT Resu lts for this procedure are i n the results section . RAPID INFLUENZA A&B SCREEN Routine 12/22/2019 10:57 AM CDT Results for this procedure are i n the results section . RESPIRATORY PANEL [facility] Routine 12/22/2019 10:57 AM CDT Results for this procedure are i n the results section . XR CHEST 1 VIEW KAMRON 12/22/2019 9:06 AM CDT R esults for this PORTABLE/BEDSIDE procedure a re in the results section . FIBRINOGEN Routine 12/22/2019 8:08 AM CDT Resu lts for this procedure are i n the results section . APTT Routine 12/22/2019 8:08 AM CDT Resu lts for this procedure are i n the results section . PROTHROMBIN TIME/INR Routine 12/22/2019 8:08 AM CDT Results for this procedure are i n the results section . (CELLAVISION MANUAL DIFF) KAMRON 12/22/2019 8:07 AM CDT Results for this procedure are i n the results section . CBC W/PLT COUNT & AUTO Routine 12/22/2019 8:07 AM CDT Results for this DIFFERENTIAL procedure are i n the results section . TYPE AND SCREEN, AUTOMATED STAT 12/22/2019 8:07 AM CDT Results for this procedure are i n the results section . CBC W/PLT COUNT & AUTO Add-On 12/22/2019 8:07 AM CDT Results for this DIFFERENTIAL procedure are i n the results section . BILIRUBIN, INDIRECT Add-On 12/22/2019 8:07 AM CDT Results for this procedure are i n the results section . BILIRUBIN, DIRECT Add-On 12/22/2019 8:07 AM CDT Results for this procedure are i n the results section . T4, FREE Routine 12/22/2019 8:07 AM CDT Resu lts for this procedure are i n the results section . TSH/FREE T4 IF INDICATED Routine 12/22/2019 8:07 AM CDT Results for this procedure are i n the results section . CORTISOL Routine 12/22/2019 8:07 AM CDT Resu lts for this procedure are i n the results section . PROCALCITONIN STAT 12/22/2019 8:07 AM CDT Res ults for this procedure are i n the results section . LACTIC ACID, VENOUS STAT 12/22/2019 8:07 AM CDT Results for this procedure are i n the results section . LIPASE Routine 12/22/2019 8:07 AM CDT Resu lts for this procedure are i n the results section . AMYLASE Routine 12/22/2019 8:07 AM CDT Resu lts for this procedure are i n the results section . TROPONIN I Routine 12/22/2019 8:07 AM CDT Resu lts for this procedure are i n the results section . VITAMIN B12 AND FOLATE Routine 12/22/2019 8:07 AM CDT Results for this procedure are i n the results section . HAPTOGLOBIN Routine 12/22/2019 8:07 AM CDT Resu lts for this procedure are i n the results section . RETICULOCYTE COUNT Routine 12/22/2019 8:07 AM CDT Results for this procedure are i n the results section . LACTATE DEHYDROGENASE (LDH) Routine 12/22/2019 8:07 AM CDT Results for this procedure are i n the results section . FERRITIN Routine 12/22/2019 8:07 AM CDT Resu lts for this procedure are i n the results section . IRON, TIBC, % SAT. (WITHOUT Routine 12/22/2019 8:07 AM CDT Results for this FERRITIN) procedure are i n the results section . MAGNESIUM STAT 12/22/2019 8:07 AM CDT Resu lts for this procedure are i n the results section . COMPREHENSIVE METABOLIC Routine 12/22/2019 8:07 AM CDT Results for this PANEL procedure are i n the results section . HEMOGLOBIN AND HEMATOCRIT Routine 12/22/2019 8:07 AM CDT Results for this procedure are i n the results section . BLOOD CULTURE Routine 12/22/2019 8:07 AM CDT Res ults for this procedure are i n the results section . ECG 12-LEAD Routine 12/22/2019 6:57 AM CDT Procedure Note - Interface, External Ris In - 12/22/2019 8:15 AM CDT Ventricular Rate 98 BPM Atrial Rate 98 BPM P-R Interval 168 ms QRS Duration 80 ms Q-T Interval 364 ms QTC Calculation(Bazett) 464 ms P Telferner 69 degrees R Telferner 47 degrees T Telferner 43 degrees Normal sinus rhythm Minimal voltage criteria for LVH, may be normal variant Nonspecific ST abnormality Abnormal ECG When compared with ECG of 18:28, No significant change was fo und ECG 12-LEAD STAT 12/22/2019 6:57 AM CDT Resu lts for this procedure are i n the results section . SARS-COV2/RT-PCR ([facility] & REF Routine 12/22/2019 4:10 AM CDT Results for this LABS) procedure are i n the results section . REPORT OF PROCEDURE - 10/02/2019 10:52 AM [facility] ENDOSCOPY SCAN (CELLAVISION MANUAL DIFF) Routine 09/30/2019 4:19 AM [facility] Results for this procedure are i n the results section . CBC W/PLT COUNT & AUTO Routine 09/30/2019 4:19 AM [facility]ING[facility] Results for this DIFFERENTIAL procedure are i n the results section . CBC W/PLT COUNT & AUTO Routine 09/30/2019 4:19 AM [facility] Results for this DIFFERENTIAL procedure are i n the results section . (CELLAVISION MANUAL DIFF) Routine 09/29/2019 6:48 AM [facility] Results for this procedure are i n the results section . CBC W/PLT COUNT & AUTO Routine 09/29/2019 6:48 AM [facility] Results for this DIFFERENTIAL procedure are i n the results section . CBC W/PLT COUNT & AUTO Routine 09/29/2019 6:48 AM [facility] Results for this DIFFERENTIAL procedure are i n the results section . VANCOMYCIN LEVEL, TROUGH Timed 09/28/2019 11:47 AM [facility] Results for this procedure are i n the results section . (CELLAVISION MANUAL DIFF) Routine 09/28/2019 5:01 AM [facility] Results for this procedure are i n the results section . CBC W/PLT COUNT & AUTO Routine 09/28/2019 5:01 AM [facility] Results for this DIFFERENTIAL procedure are i n the results section . CBC W/PLT COUNT & AUTO Routine 09/28/2019 5:01 AM [facility] Results for this DIFFERENTIAL procedure are i n the results section . TRANSFUSION SERVICE REPORT - 09/27/2019 5:51 PM [facility] SCAN (CELLAVISION MANUAL DIFF) Routine 09/27/2019 4:54 AM [facility] Results for this procedure are i n the results section . CBC W/PLT COUNT & AUTO Routine 09/27/2019 4:54 AM [facility] Results for this DIFFERENTIAL procedure are i n the results section . CBC W/PLT COUNT & AUTO Routine 09/27/2019 4:54 AM [facility]ER Results for this DIFFERENTIAL procedure are i n the results section . BASIC METABOLIC PANEL (7) Routine 09/27/2019 4:54 AM [facility] Results for this procedure are i n the results section . PREPARE LEUKO-REDUCED RBC Routine 09/26/2019 11:54 PM [facility] Results for this procedure are i n the results section . (CELLAVISION MANUAL DIFF) Routine 09/26/2019 7:42 AM [facility] Results for this procedure are i n the results section . CBC W/PLT COUNT & AUTO Routine 09/26/2019 7:42 AM [facility] Results for this DIFFERENTIAL procedure are i n the results section . CBC W/PLT COUNT & AUTO Routine 09/26/2019 7:42 AM [facility]INGER Results for this DIFFERENTIAL procedure are i n the results section . BASIC METABOLIC PANEL (7) Routine 09/26/2019 5:51 AM [facility] Results for this procedure are i n the results section . TRANSFUSE LEUKO-REDUCED RED Routine 09/25/2019 6:34 PM [facility] BLOOD CELLS TRANSFUSION SERVICE REPORT - 09/25/2019 6:01 PM [facility] SCAN CATHETER TIP CULTURE Routine 09/25/2019 11:21 AM [facility] Results for this procedure are i n the results section . IR PORT REMOVAL Routine 09/25/2019 11:20 AM [facility]ER R esults for this procedure are i n the results section . (CELLAVISION MANUAL DIFF) Routine 09/25/2019 9:23 AM [facility] Results for this procedure are i n the results section . CBC W/PLT COUNT & AUTO Routine 09/25/2019 9:23 AM [facility] Results for this DIFFERENTIAL procedure are i n the results section . CBC W/PLT COUNT & AUTO Routine 09/25/2019 9:23 AM [facility] Results for this DIFFERENTIAL procedure are i n the results section . BASIC METABOLIC PANEL (7) Routine 09/25/2019 9:23 AM [facility] Results for this procedure are i n the results section . PT/APTT Routine 09/25/2019 5:14 AM [facility] Resu lts for this procedure are i n the results section . SCREEN, URINE Routine 09/24/2019 10:59 PM [facility] Results for this procedure are i n the results section . ANTIBODY IDENTIFICATION Routine 09/24/2019 6:22 PM [facility] Results for this procedure are i n the results section . (CELLAVISION MANUAL DIFF) Routine 09/24/2019 8:36 AM [facility] Results for this procedure are i n the results section . CBC W/PLT COUNT & AUTO Routine 09/24/2019 8:36 AM [facility] Results for this DIFFERENTIAL procedure are i n the results section . CBC W/PLT COUNT & AUTO Routine 09/24/2019 8:36 AM [facility] Results for this DIFFERENTIAL procedure are i n the results section . TYPE AND SCREEN, AUTOMATED Routine 09/24/2019 5:11 AM [facility] Results for this procedure are i n the results section . TRANSFUSION SERVICE REPORT - 07/22/2019 5:54 PM [facility] SCAN RHYTHM STRIP - SCAN 07/22/2019 3:13 PM [facility] RHYTHM STRIP - SCAN 07/22/2019 3:13 PM [facility] RHYTHM STRIP - SCAN 07/22/2019 3:13 PM [facility] PREPARE LEUKO-REDUCED RBC Routine 07/21/2019 11:54 PM [facility] Results for this procedure are i n the results section . TRANSFUSION SERVICE REPORT - 07/21/2019 5:51 PM [facility] SCAN ANTIBODY IDENTIFICATION Routine 07/21/2019 5:30 PM [facility] Results for this procedure are i n the results section . TRANSFUSION SERVICE REPORT - 07/20/2019 5:51 PM [facility] SCAN (MANUAL DIFFERENTIAL) Routine 07/20/2019 9:31 AM [facility] Results for this procedure are i n the results section . CBC W/PLT COUNT & AUTO Routine 07/20/2019 9:31 AM [facility] Results for this DIFFERENTIAL procedure are i n the results section . RETICULOCYTE COUNT Routine 07/20/2019 9:31 AM [facility] Results for this procedure are i n the results section . CBC W/PLT COUNT & AUTO Routine 07/20/2019 9:31 AM [facility] Results for this DIFFERENTIAL procedure are i n the results section . TRANSFUSE LEUKO-REDUCED RED Routine 07/20/2019 6:07 AM [facility] BLOOD CELLS PREPARE LEUKO-REDUCED RBC Routine 07/19/2019 10:31 PM [facility] Results for this procedure are i n the results section . ABORH, MANUAL Routine 07/19/2019 10:34 AM [facility] Res ults for this procedure are i n the results section . TYPE AND SCREEN, AUTOMATED Routine 07/19/2019 10:34 AM [facility] Results for this procedure are i n the results section . (MANUAL DIFFERENTIAL) Routine 07/19/2019 6:11 AM [facility] Results for this procedure are i n the results section . CBC W/PLT COUNT & AUTO Routine 07/19/2019 6:11 AM [facility] Results for this DIFFERENTIAL procedure are i n the results section . RETICULOCYTE COUNT Routine 07/19/2019 6:11 AM [facility] Results for this procedure are i n the results section . CBC W/PLT COUNT & AUTO Routine 07/19/2019 6:11 AM [facility] Results for this DIFFERENTIAL procedure are i n the results section . (MANUAL DIFFERENTIAL) Routine 07/18/2019 4:38 AM [facility] Results for this procedure are i n the results section . CBC W/PLT COUNT & AUTO Routine 07/18/2019 4:38 AM [facility] Results for this DIFFERENTIAL procedure are i n the results section . CBC W/PLT COUNT & AUTO Routine 07/18/2019 4:38 AM [facility] Results for this DIFFERENTIAL procedure are i n the results section . (MANUAL DIFFERENTIAL) Routine 07/17/2019 5:15 AM [facility] Results for this procedure are i n the results section . CBC W/PLT COUNT & AUTO Routine 07/17/2019 5:15 AM [facility] Results for this DIFFERENTIAL procedure are i n the results section . CBC W/PLT COUNT & AUTO Routine 07/17/2019 5:15 AM [facility] Results for this DIFFERENTIAL procedure are i n the results section . BASIC METABOLIC PANEL (7) Routine 07/17/2019 5:15 AM [facility] Results for this procedure are i n the results section . (MANUAL DIFFERENTIAL) Routine 07/16/2019 5:40 AM [facility] Results for this procedure are i n the results section . CBC W/PLT COUNT & AUTO Routine 07/16/2019 5:40 AM [facility] Results for this DIFFERENTIAL procedure are i n the results section . CBC W/PLT COUNT & AUTO Routine 07/16/2019 5:40 AM [facility]ER Results for this DIFFERENTIAL procedure are i n the results section . BASIC METABOLIC PANEL (7) Routine 07/16/2019 5:40 AM [facility] Results for this procedure are i n the results section . (MANUAL DIFFERENTIAL) Routine 07/15/2019 5:07 AM [facility]ER Results for this procedure are i n the results section . CBC W/PLT COUNT & AUTO Routine 07/15/2019 5:07 AM BAND SINGER Results for this DIFFERENTIAL procedure are i n the results section . RETICULOCYTE COUNT Routine 07/15/2019 5:07 AM BAND SINGER Results for this procedure are i n the results section . FERRITIN Routine 07/15/2019 5:07 AM BAND SINGER Resu lts for this procedure are i n the results section . BASIC METABOLIC PANEL (7) Routine 07/15/2019 5:07 AM BAND SINGER Results for this procedure are i n the results section . CBC W/PLT COUNT & AUTO Routine 07/15/2019 5:07 AM BAND SINGER Results for this DIFFERENTIAL procedure are i n the results section . REPORT OF PROCEDURE - 07/14/2019 9:51 AM BAND SINGER ENDOSCOPY SCAN (MANUAL DIFFERENTIAL) Routine 07/14/2019 5:07 AM BAND SINGER Results for this procedure are i n the results section . CBC W/PLT COUNT & AUTO Routine 07/14/2019 5:07 AM BAND SINGER Results for this DIFFERENTIAL procedure are i n the results section . BASIC METABOLIC PANEL (7) Routine 07/14/2019 5:07 AM BAND SINGER Results for this procedure are i n the results section . IMMATURE RETICULOCYTE Routine 07/14/2019 5:07 AM BAND SINGER Results for this FRACTION procedure are i n the results section . CBC W/PLT COUNT & AUTO Routine 07/14/2019 5:07 AM BAND SINGER Results for this DIFFERENTIAL procedure are i n the results section . TRANSFUSION SERVICE REPORT - 07/13/2019 6:02 PM BAND SINGER SCAN (MANUAL DIFFERENTIAL) Routine 07/13/2019 3:30 AM BAND SINGER Results for this procedure are i n the results section . CBC W/PLT COUNT & AUTO Routine 07/13/2019 3:30 AM BAND SINGER Results for this DIFFERENTIAL procedure are i n the results section . BASIC METABOLIC PANEL (7) Routine 07/13/2019 3:30 AM BAND SINGER Results for this procedure are i n the results section . IMMATURE RETICULOCYTE Routine 07/13/2019 3:30 AM BAND SINGER Results for this FRACTION procedure are i n the results section . CBC W/PLT COUNT & AUTO Routine 07/13/2019 3:30 AM BAND SINGER Results for this DIFFERENTIAL procedure are i n the results section . PREPARE LEUKO-REDUCED AND Routine 07/12/2019 11:55 PM BAND SINGER Results for this IRRADIATED RBC procedure are in the results section . TRANSFUSION SERVICE REPORT - 07/12/2019 6:05 PM BAND SINGER SCAN (MANUAL DIFFERENTIAL) Routine 07/12/2019 5:49 AM BAND SINGER Results for this procedure are i n the results section . CBC W/PLT COUNT & AUTO Routine 07/12/2019 5:49 AM BAND SINGER Results for this DIFFERENTIAL procedure are i n the results section . CBC W/PLT COUNT & AUTO Routine 07/12/2019 5:49 AM BAND SINGER Results for this DIFFERENTIAL procedure are i n the results section . PREPARE LEUKO-REDUCED AND Routine 07/11/2019 11:54 PM BAND SINGER Results for this IRRADIATED RBC procedure are in the results section . TRANSFUSE LEUKO-REDUCED RED Routine 07/11/2019 7:00 PM BAND SINGER BLOOD CELLS TRANSFUSION SERVICE REPORT - 07/11/2019 6:06 PM BAND SINGER SCAN (MANUAL DIFFERENTIAL) Routine 07/11/2019 4:21 AM BAND SINGER Results for this procedure are i n the results section . CBC W/PLT COUNT & AUTO Routine 07/11/2019 4:21 AM BAND SINGER Results for this DIFFERENTIAL procedure are i n the results section . BASIC METABOLIC PANEL (7) Routine 07/11/2019 4:21 AM BAND SINGER Results for this procedure are i n the results section . CBC W/PLT COUNT & AUTO Routine 07/11/2019 4:21 AM BAND SINGER Results for this DIFFERENTIAL procedure are i n the results section . TRANSFUSION SERVICE REPORT - 07/10/2019 5:56 PM BAND SINGER SCAN ANTIBODY IDENTIFICATION Routine 07/10/2019 4:13 PM BAND SINGER Results for this procedure are i n the results section . (MANUAL DIFFERENTIAL) Routine 07/10/2019 7:14 AM BAND SINGER Results for this procedure are i n the results section . CBC W/PLT COUNT & AUTO Routine 07/10/2019 7:14 AM BAND SINGER Results for this DIFFERENTIAL procedure are i n the results section . CBC W/PLT COUNT & AUTO Routine 07/10/2019 7:14 AM BAND SINGER Results for this DIFFERENTIAL procedure are i n the results section . BASIC METABOLIC PANEL (7) Routine 07/10/2019 7:13 AM BAND SINGER Results for this procedure are i n the results section . TRANSFUSE LEUKO-REDUCED AND Routine 07/10/2019 5:46 AM BAND SINGER IRRADIATED RED BLOOD CELLS ABORH, MANUAL Routine 07/09/2019 3:32 PM BAND SINGER Res ults for this procedure are i n the results section . TYPE AND SCREEN, AUTOMATED Routine 07/09/2019 3:32 PM BAND SINGER Results for this procedure are i n the results section . CBC W/PLT COUNT & AUTO Routine 07/09/2019 11:14 AM BAND SINGER Results for this DIFFERENTIAL procedure are i n the results section . CBC W/PLT COUNT & AUTO Routine 07/09/2019 11:14 AM BAND SINGER Results for this DIFFERENTIAL procedure are i n the results section . POTASSIUM STAT 07/09/2019 4:58 AM BAND SINGER Resu lts for this procedure are i n the results section . MAGNESIUM STAT 07/09/2019 4:57 AM BAND SINGER Resu lts for this procedure are i n the results section . BASIC METABOLIC PANEL (7) STAT 07/09/2019 4:57 AM BAND SINGER Results for this procedure are i n the results section . ED ECG INTERPRETATION Routine 07/09/2019 12:11 AM BAND SINGER Results for this procedure are i n the results section . CRITICAL CARE Routine 07/09/2019 12:11 AM BAND SINGER Res ults for this procedure are i n the results section . BLOOD CULTURE STAT 07/08/2019 8:58 PM BAND SINGER Res ults for this procedure are i n the results section . XR CHEST 1 VIEW STAT 07/08/2019 7:41 PM BAND SINGER R esults for this PORTABLE/BEDSIDE procedure a re in the results section . SCREEN, URINE STAT 07/08/2019 7:16 PM BAND SINGER Results for this procedure are i n the results section . URINALYSIS W/ MICROSCOPIC STAT 07/08/2019 7:16 PM BAND SINGER Results for this procedure are i n the results section . (MANUAL DIFFERENTIAL) STAT 07/08/2019 6:44 PM BAND SINGER Results for this procedure are i n the results section . CBC W/PLT COUNT & AUTO STAT 07/08/2019 6:44 PM BAND SINGER Results for this DIFFERENTIAL procedure are i n the results section . MAGNESIUM STAT 07/08/2019 6:44 PM BAND SINGER Resu lts for this procedure are i n the results section . RETICULOCYTE COUNT STAT 07/08/2019 6:44 PM BAND SINGER Results for this procedure are i n the results section . TROPONIN I STAT 07/08/2019 6:44 PM BAND SINGER Resu lts for this procedure are i n the results section . BASIC METABOLIC PANEL (7) STAT 07/08/2019 6:44 PM BAND SINGER Results for this procedure are i n the results section . CBC W/PLT COUNT & AUTO STAT 07/08/2019 6:44 PM BAND SINGER Results for this DIFFERENTIAL procedure are i n the results section . after 02/22/2019 Results RHYTHM STRIP - SCAN (12/30/2019 12:00 PM CDT)Only the most recent of4 results within the time period is included. Narrative Performed At This result has an attachment that is no t available. Manual Differential (12/28/2019 4:29 AM CDT)Only the most recent of14 results within the time period is included. % Neutros 61 % [facility] % Lymphs 23 % [facility] % Monos 11 % [facility] % Eos 3 % [facility] % Baso 2 % [facility] # Neutros 11.65 (H) 1.56 - 6.13 K/ul [facility] # Lymphs 4.39 (H) 1.18 - 3.74 K/ul [facility] # Monos 2.10 (H) 0.24 - 0.36 K/uL [facility] # Eos 0.57 (H) 0.04 - 0.36 K/uL [facility] # Baso 0.38 (H) 0.01 - 0.08 K/uL [facility] Total Counted [address] [facility] nRBC (manual) 7 (H) 0 - 0 /100 WBC [facility] Smudge Cells Present [facility] Giant Platelet Present [facility] Polychromasia 1+ few [facility] Anisocytosis 2+ moderate [facility] Poikilocytes 1+ few [facility] Target [facility] 1+ few [facility]ickle Cells 1+ few [facility] Artifact Present [facility] Platelet [facility]c Adequate [facility] Specimen Blood Narrative Performed At Record Searcher ID - Flavia Ayan [facility] User comments: Slide comments: Performing Organization Address City/State/Zipcode Phone Number [facility] [address] [place] [address] CENTER CBC with platelet count + automated diff (12/28/2019 4:29 AM CDT)Only the most recent of28 resultswithin the time period is included. WBC 19.1 (H) 3.5 - 10.5 K/L [facility] RBC 2.02 (L) 3.93 - 5.22 M/L [facility] Hemoglobin 6.6 (L) 11.2 - 15.7 GM/DL [facility] Hematocrit 20.7 (L) 34.1 - 44.9 % [facility] MCV 102.5 (H) 79.4 - 94.8 fL [facility] MCH 32.7 (H) 25.6 - 32.2 pg [facility] MCHC 31.9 (L) 32.2 - 35.5 GM/DL [facility] RDW 18.4 (H) 11.7 - 14.4 % [facility] Platelets 364 150 - 450 K/CU MM [facility] MPV 10.7 9.4 - 12.3 fL [facility] nRBC 3 (H) 0 - 0 /100 WBC [facility] Specimen Blood Performing Organization Address City/[facility]/Zipcode Phone Number [address] [address] CENTER Magnesium (12/28/2019 4:29 AM CDT)Only the most recent of9 resultswithin the time period is included. Magnesium 1.5 (L) 1.6 - 2.6 mg/dL [facility] Specimen Blood Narrative Performed At Record Searcher ID - THAO Medina [facility] Performing Organization Address City/[facility]/Zipcode Phone Number [address] [address] CENTER Basic Metabolic Panel (12/28/2019 4:29 AM CDT)Only the most recent of18 results within the time period is included. Sodium 138 136 - 145 meq/L [facility] Potassium 3.6 3.5 - 5.1 meq/L [facility] Chloride 109 (H) 98 - 107 meq/L [facility] CO2 23 22 - 29 meq/L [facility] BUN 7 7 - 21 mg/dL [facility] Creatinine 0.79 0.57 - 1.25 mg/dL [facility] Glucose 89 70 - 105 mg/dL [facility] Calcium 8.4 8.4 - 10.2 mg/dL [facility] EGFR 98Comment: ESTIMATED GFR IS mL/min/1.73 sq m [facility] NOT ACCURATE CREATININE HI DICAL CENTER CLEARANCE IN PREDICTING GLOMERULAR FILTRATION RATE. ESTIMATED GFR IS NOT APPLICABLE FOR DIALYSIS PATIENTS. Specimen Blood Narrative Performed At Record Searcher ID - THAO Medina [facility] Specimen slightly icteric Performing Organization Address City/State/Zipcode Phone Number [facility] [address] [place] [address] CENTER TRANSFUSION SERVICE REPORT - SCAN (12/27/2019 5:51 PM CDT)Only the most recent of12 resultswithin the time period is included. Narrative Performed At This result has an attachment that is no t available. Vancomycin level, trough (12/26/2019 8:19 AM CDT)Only the most recent of3 resultswithin the time period is included. Vancomycin Tr 16.4 10.0 - 20.0 ug/mL [facility] Specimen Blood Narrative Performed At Record Searcher ID - ROMERO Smith [facility] Performing Organization Address City/State/Zipcode Phone Number [facility] [address] [place] [address] CENTER Prepare RBC (12/26/2019 4:32 AM CDT) Unit ABO O Pos [place] UNIT NUMBER [id number] [place] Status WORK IN PROGRESS [place] Blood Bank Product RED BLOOD CELLS [place] PRODUCT CODE [id number] SAFETRACE TX Unit ABO O Pos SAFETRACE TX UNIT NUMBER [id number] SAFETRACE TX Status WORK IN PROGRESS SAFETRACE TX Blood Bank Product RED BLOOD CELLS SAFETRACE [place] PRODUCT CODE [id number] SAFETRACE [place] CROSSMATCH COMPATIBLE SAFETRACE TX Unit ABO O Pos SAFETRACE TX UNIT NUMBER [id number] SAFETRACE TX Status TX_TIMEINCHART SAFETRACE TX Blood Bank Product RED BLOOD CELLS SAFET[place] PRODUCT CODE [id number] SAFETRACE TX CROSSMATCH COMPATIBLE SAFETRACE TX Unit ABO O Pos SAFETRACE TX UNIT NUMBER [id number] SAFETRACE [place] Status WORK IN PROGRESS SAFETRACE [place] Blood Bank Product RED BLOOD CELLS [place] PRODUCT CODE [id number] SAFETRACE [place] Performing Organization Address [facility] Phone Number [place] Phosphorus (12/25/2019 4:10 AM CDT)Only the most recent of3 resultswithin the time period is included. Phosphorus 3.2 2.3 - 4.7 mg/dL [facility] Specimen Blood Narrative Performed At Record Searcher JAMILAH Medina [facility] Performing Organization Address City/[facility]/Zipcode Phone Number [address] [address] CENTER Hepatic function panel (12/25/2019 4:10 AM CDT)Only the most recent of3 results within the time period is included. Protein, Total 8.2 6.0 - 8.3 gm/dL [facility] Albumin 2.6 (L) 3.5 - 5.0 g/dL [facility] Total Bilirubin 3.8 (H) 0.2 - 1.2 mg/dL [facility] Bilirubin, Direct 2.0 (H) 0.1 - 0.5 mg/dL [facility] Alkaline Phosphatase 159 (H) 40 - 150 U/L [facility] AST 110 (H) 5 - 34 U/L [facility] ALT 88 (H) 6 - 55 U/L [facility] Specimen Blood Narrative Performed At Record Searcher JAMILAH Medina [facility] Specimen slightly icteric Performing Organization Address City/[facility] Phone Number [facility] [address] [place] [address] CENTER Prepare Leuko-Red RBC (12/23/2019 11:54 PM CDT)Only the most recent of4 results within the time period is included. Unit ABO O Pos SAFETRACE TX UNIT NUMBER [id number] SAFETRACE [place] Status WORK IN PROGRESS SAFET[place] Blood Bank Product RED BLOOD CELLS SAFETRACE [place] PRODUCT CODE [id number] SAFETRACE TX Unit ABO O Pos SAFETRACE TX UNIT NUMBER [id number] SAFETRACE TX Status WORK IN PROGRESS SAFETRACE TX Blood Bank Product RED BLOOD CELLS SAFETRACE [place] PRODUCT CODE [id number] SAFETRACE TX CROSSMATCH COMPATIBLE SAFETRACE TX Unit ABO O Pos SAFETRACE TX UNIT NUMBER [id number] SAFETRACE TX Status TX_TIMEINCHART SAFETRACE [place] Blood Bank Product RED BLOOD CELLS SAFETRACE [place] PRODUCT CODE [id number] SAFETRACE [place] CROSSMATCH COMPATIBLE SAFETRACE TX Unit ABO O Pos SAFETRACE TX UNIT NUMBER [id number] SAFETRACE [place] Status TX_TIMEINCHART SAFETRACE [place] Blood Bank Product RED BLOOD CELLS [place]ACE [place] PRODUCT CODE [id number] S[place]ET[place] Specimen Other Performing Organization Address City/[facility] Phone Number [place] Hemoglobin and hematocrit (12/23/2019 7:50 AM CDT)Only the most recent of4 resultswithin the time period is included. Hemoglobin 7.0 (L) 11.2 - 15.7 GM/DL [facility] Hematocrit 21.1 (L) 34.1 - 44.9 % [facility] Specimen Blood Narrative Performed At Record Searcher ID - [id number] [facility] CENTER Performing Organization Address [facility] Phone Number [address] [address] CENTER Transfuse Leuko-Red RBC (12/23/2019 1:08 AM CDT)Only the most recent of11 resultswithin the time period is included.Troponin I (12/22/2019 9:21 PM CDT) Only the most recent of4 resultswithin the time period is included. Troponin I 0.15 (H) 0.00 - 0.03 ng/mL [facility] Specimen Blood Narrative Performed At Troponin I (TnI) levels must be interpreted [facility] in the context of the [...] acidosis, acute neurological disease, and persistent tachyarrhythmia. Record Searcher ID - BS Performing Organization Address [facility] Phone Number [address] [address] [place] Sodium, random urine (12/22/2019 4:33 PM CDT) Sodium Urine 35 meq/L [facility] Specimen Urine Narrative Performed At Reference Range: No Normals [facility] Record Searcher ID - DB Record Searcher ID - DB Performing Organization Address City/[facility]/Zipcode Phone Number [address] [address] CENTER Protein, random urine (12/22/2019 4:33 PM CDT) Protein, Urine 45 (H) 0 - 14 mg/dL [facility] Specimen Urine Narrative Performed At Record Searcher ID - DB [facility] Performing Organization Address City/[facility] Phone Number [address] [address] CENTER Potassium, random urine (12/22/2019 4:33 PM CDT) Potassium Urine 34.3 meq/L [facility] Specimen Urine Narrative Performed At Reference Range: No Normals [facility] Record Searcher ID - DB Performing Organization Address City/[facility] Phone Number [address] [address] CENTER Osmolality, urine (12/22/2019 4:33 PM CDT) Osmolality, Ur 353 50-1,200 mOsm/kg mOsm/kg [facility] Specimen Urine Performing Organization Address [facility] [place] [address] [place] Creatinine, random urine (12/22/2019 4:33 PM CDT) Creatinine, Ur 45.6 mg/dL [facility] Specimen Urine Narrative Performed At Reference Range: No Normals [facility] Record Searcher ID - DB Performing Organization Address [facility] Phone Number [address] [address] CENTER Antibody identification (12/22/2019 3:56 PM CDT)Only the most recent of4 resultswithin the time period is included. ANTIBODY ID (SOMMER) Anti-Bg SAFETRACE T X Anti-Cw Anti-E Anti-S Anti-c COLD ANTIBODY UNID IgG WARM AUTO AB Comment: Previously identified Bg Previously identified Cw Previously identified S Previously identified Cold auto Previously identified IgG Previously identified Warm auto Antibody Consult SIGNED OUTComment: Anti E causes RBC [place] injury, transfuse E negative RBCs. Anti c causes RBC injury, transfuse c negative RBCs. History of anti Cw, S, Bg and cold and warm autoantibodies.Electronic Signature: Karina Hendrix M.D. Specimen Performing Organization Address City/[facility]/Zipcode Phone Number [place] ECG 12 lead (12/22/2019 3:35 PM CDT)Only the most recent of2 resultswithin the time period is included. Specimen Narrative Performed At Ventricular Rate 108 BPM GE MUSE Atrial Rate 108 BPM P-R Interval 158 ms QRS Duration 72 ms Q-T Interval 312 ms QTC Calculation(Bazett) 418 ms P Telferner 74 degrees R Telferner 39 degrees T Telferner 54 degrees Sinus tachycardia with occasional Premat ure ventricular complexes Minimal voltage criteria for LVH, may be normal variant Borderline ECG When compared with ECG of 22-DEC-2019 06 :57, Premature ventricular complexes are now Present Confirmed by MD YOUNG JOSEPH P ([id number]) on 12/23/2019 6:54:58 AM Procedure Note Interface, External Ris In - 12/23/2019 6:55 AM CDT Ventricular Rate 108 BPM Atrial Rate 108 BPM P-R Interval 158 ms QRS Duration 72 ms Q-T Interval 312 ms QTC Calculation(Bazett) 418 ms P Telferner 74 degrees R Telferner 39 degrees T Telferner 54 degrees Sinus tachycardia with occasional Premat ure ventricular complexes Minimal voltage criteria for LVH, may be normal variant Borderline ECG When compared with ECG of 22-DEC-2019 06 :57, Premature ventricular complexes are now Present Confirmed by MD YOUNG JOSEPH P ([id number]) on 12/23/2019 6:54:58 AM Performing Organization Address [facility] Phone Number [employer] Blood Culture - Routine (Right Venipuncture) (12/22/2019 2:01 PM CDT)Only the most recent of3 resultswithin the time period is included. Result No growth in [address] [facility] Specimen Blood Performing Organization Address City/[facility]/Zipcode Phone Number [facility] [address] [place] [address] CENTER US abdomen limited (12/22/2019 1:50 PM CDT) Specimen Narrative Performed At FINAL REPORT CR2 History: Right upper quadrant abdominal pain, elevated liver enzymes. FINDINGS: Correlation is made with patient's previ ous study performed November 07, 2017. Real-time sonographic examination reveal s an enlarged liver measuring up to 21 cm in length. Hepatic echotextu re is mildly and diffusely heterogeneous. There are no sonographica lly detectable masses or focal intrahepatic abnormalities identif ied. The gallbladder is now visible, likely a result of prior cholec ystectomy. There appears to be a tiny amount of fluid in the gallbla dder fossa region, of uncertain clinical significance. There i s no intra or extrahepatic biliary ductal dilatation identified. Th e common bile duct measures up to 3 mm in diameter. The portal vein measures 8 mm in diameter and appears patent by Limited color Doppler examination. The right kidney is relatively large radha suring up to 13.2 cm in length by 6.4 cm in greatest transverse diameter. Renal echogenicity is normal. There are no sonographically detectable solid masses, stones or evidence for obstruction. Ther e is a 3.3 x 1.9 x 2.9 cm slightly complex predominantly hypoechoi c cyst with a single internal septation in the upper pole the right ki dney. There are no other visible cysts. The pancreas is unremarkable were visibl e. Aorta and IVC are unremarkable. No ascites or abdominal fluid collection s. IMPRESSION: 1. Hepatomegaly and diffusely heterogene ous liver without focal hepatic mass or abnormality. 2. Nonvisualization of the gallbladder c onsistent with cholecystectomy. Small amount of fluid i s noted in the gallbladder fossa of uncertain clinical significance . 3. 3.3 cm slightly complex cyst in the u pper pole of the right kidney containing an internal septation. Signed: Alyssia Whitt MD Report Verified Date/Time:12/22/2019 14:49:18 Reading Location: [address] Reading Room Procedure Note Interface, External Ris In - 12/22/2019 2:51 PM CDT FINAL REPORT History: Right upper quadrant abdominal pain, elevated liver enzymes. FINDINGS: Correlation is made with patient's previ ous study performed November 07, 2017. Real-time sonographic examination reveal s an enlarged liver measuring up to 21 cm in length. Hepatic echotextu re is mildly and diffusely heterogeneous. There are no sonographica lly detectable masses or focal intrahepatic abnormalities identif ied. The gallbladder is now visible, likely a result of prior cholec ystectomy. There appears to be a tiny amount of fluid in the gallbla dder fossa region, of uncertain clinical significance. There i s no intra or extrahepatic biliary ductal dilatation identified. Th e common bile duct measures up to 3 mm in diameter. The portal vein measures 8 mm in diameter and appears patent by Limited color Doppler examination. The right kidney is relatively large radha suring up to 13.2 cm in length by 6.4 cm in greatest transverse diameter. Renal echogenicity is normal. There are no sonographically detectable solid masses, stones or evidence for obstruction. Ther e is a 3.3 x 1.9 x 2.9 cm slightly complex predominantly hypoechoi c cyst with a single internal septation in the upper pole the right ki dney. There are no other visible cysts. The pancreas is unremarkable were visibl e. Aorta and IVC are unremarkable. No ascites or abdominal fluid collection s. IMPRESSION: 1. Hepatomegaly and diffusely heterogene ous liver without focal hepatic mass or abnormality. 2. Nonvisualization of the gallbladder c onsistent with cholecystectomy. Small amount of fluid i s noted in the gallbladder fossa of uncertain clinical significance . 3. 3.3 cm slightly complex cyst in the u pper pole of the right kidney containing an internal septation. Signed: Alyssia Whitt MD Report Verified Date/Time: 12/22/2019 1 4:49:18 Reading Location: [address] Radiolog y Reading Room Performing Organization Address City/State/Zipcode Phone Number GE RIS Urinalysis w/Microscopic + Reflex to Culture (12/22/2019 11:12 AM CDT) Color, UA Yellow [facility] Clarity, UA Hazy [facility] Specific [place], UA 1.013 1.001 - 1.035 [facility] pH, UA 5.5 5.0 - 8.0 [facility] Protein, UA 20 mg/dL (A) Negative [facility] Glucose, UA Negative Negative [facility] Ketones, UA Negative Negative [facility] Bilirubin, UA Negative Negative [facility] Blood, UA Small (A) Negative [facility] Nitrite, UA Negative Negative [facility] Leukocytes, UA Small (A) Negative [facility] Urobilinogen, UA 0.2 0.2 - 1.0 mg/dL [facility] RBC, UA 1 /HPF [facility] WBC, UA 10 /HPF [facility] Bacteria, UA Few [facility] Mucus Few [facility] Squam Epithel, UA <1 /HPF [facility] Specimen Source [facility] Specimen Urine Narrative Performed At Record Searcher ID - [auto] [facility] Record Searcher ID - tech Performing Organization Address City/State/Zipcode Phone Number [address] [address] [place] Strep pneumoniae antigen (12/22/2019 11:12 AM CDT) Strep pneumoniae Presumptive negative Presumptive negative [facility] Antigen for pneumococcal for pneumococcal [facility] pneumonia - see comment pneumonia - see CENTER comment, Presumptive negative for pneumococcal meningitis - see comment Specimen Urine Narrative Performed At Presumptive negative for pneumococcal [facility] pneumonia, suggesting no current or recent pneumococcal infection. Infection due to S. pneumoniae cannot be ruled out since the antigen present in the sample may be below the detection limit of the test. Performing Organization Address City/State/Zipcode Phone Number [address] [address] [place] Legionella antigen, urine (12/22/2019 11:12 AM CDT) Legionella Urine Antigen Negative - see [facility] commentComment: Negative [facility] for L. pneumophila serogroup 1 antigen, suggesting no recent or current infection with this serogroup. Legionellosis cannot be ruled out since other serogroups and species may cause disease. Specimen Urine Performing Organization Address City/State/Zipcode Phone Number [place] [phone] [place] [address] [place] Drug screen, urine, comprehensive (12/22/2019 11:12 AM CDT) Specimen Urine Narrative Performed At This result has an attachment that is no t available. Urine culture (12/22/2019 11:12 AM CDT) Result <10,000 col/mL skin valentino [facility] Specimen Urine Performing Organization Address City/State/Zipcode Phone Number [address] [address] [place] Respiratory Panel [facility] (12/22/2019 10:57 AM CDT) Human Metapneumovirus Not detected Not detected, [facility] [employer] [facility] Rhinovirus Not detected Not detected, [facility] [employer] [facility] Influenza A Not detected Not detected, [facility] [employer] [facility] INFLUENZA A (NO SUBTYPE) [facility] Influenza A subtype H1 [facility] Influenza A Subtype H3 [facility] Influenza A Subtype H1-2009 [facility] Influenza B Not detected Not detected, [facility] [employer] [facility] Respiratory Syncytial Virus Not detected Not detected, [facility] [employer] [facility] Parainfluenza Virus 1 Not detected Not detected, [facility] [employer] [facility] Parainfluenza Virus 2 Not detected Not detected, [facility] [employer] [facility] Parainfluenza virus 3 Not detected Not detected, [facility] [employer] [facility] Parainfluenza Virus 4 Not detected Not detected, [facility] [employer] [facility] Adenovirus Not detected Not detected, [facility] [facility] Coronavirus 229E Not detected Not detected, [facility] [facility] Coronavirus HKU1 Not detected Not detected, [facility] [employer] [facility] Coronavirus NL63 Not detected Not detected, [facility] [employer] [facility] Coronavirus OC43 Not detected Not detected, [facility] [employer] [facility] Bordetella Pertussis Not detected Not detected, [facility] Chlamydophila Pneumoniae Not detected Not detected, [facility] [employer]ocal [facility] Mycoplasma Pneumoniae Not detected Not detected, [facility] [employer] [facility] Specimen Nasopharyngeal Narrative Performed At Other viruses and bacteria not targeted by [facility] this PCR panel cannot be excluded; therefore clinical correlation and follow up of serology, culture results, and other molecular studies is required. The results are not intended to be used as the sole means for clinical diagnosis or patient management decisions. This sample was tested at the [facility] Molecular Diagnostics Laboratory using the [employer] FilmArray Respiratory Panel. It is FDA cleared and has been verified and approved by the [facility] Molecular Diagnostics Laboratory for clinical use on nasopharyngeal swab specimens. The performance of the FilmArray RP has not been established in individuals who received influenza vaccine.Recent administration of a nasal influenza vaccine may cause false positive results for Influenza A and/or Influenza B. Performing Organization Address City/[facility]/Zipcode Phone Number [address] [address] [place] Rapid Influenza A&B Screen (12/22/2019 10:57 AM CDT) Rapid Influenza A Antigen Negative Negative, Inconclusive [facility] Rapid influenza B Antigen Negative Negative, Inconclusive [facility] Specimen Nasal Performing Organization Address [facility] Phone Number [address] [address] [place] MRSA screen (12/22/2019 10:57 AM CDT) Result 2+ Methicillin resistant [facility] Staphylococcus aureus (A) [facility] Specimen Nasal Performing Organization Address [facility]/Zipcode Phone Number [address] [address] C[place] XR chest 1 view portable / bedside (12/22/2019 9:06 AM CDT)Only the most recent of2 resultswithin the time period is included. Specimen Narrative Performed At FINAL REPORT [facility] INDICATION: pneumonia COMPARISON: July 08, 2019 TECHNIQUE: Single frontal view of the est. FINDINGS: Lungs and pleura: Clear lungs. No effusi on. Heart and mediastinum: Normal heart size . Unremarkable mediastinal contours. Osseous structures: No acute abnormality . Other: None. IMPRESSION: No acute intrathoracic abnormality. Signed: Veto Del Valle MD Report Verified Date/Time:12/22/2019 10:06:04 Reading Location: [employer] Reading Room Procedure Note Interface, External Ris In - 12/22/2019 10:08 AM CDT FINAL REPORT INDICATION: pneumonia COMPARISON: July 08, 2019 TECHNIQUE: Single frontal view of the est. FINDINGS: Lungs and pleura: Clear lungs. No effusi on. Heart and mediastinum: Normal heart size . Unremarkable mediastinal contours. Osseous structures: No acute abnormality . Other: None. IMPRESSION: No acute intrathoracic abnormality. Signed: Veto Del Valle MD Report Verified Date/Time: 12/22/2019 1 0:06:04 Reading Location: [employer] Radiolog y Reading Room Performing Organization Address City/State/Zipcode Phone Number [facility] aPTT (12/22/2019 8:08 AM CDT) PTT 54.4 (H) 22.5 - 36.[address] [facility] Specimen Blood Performing Organization Address City/State/Zipcode Phone Number [address] [phone] [place] Prothrombin time/INR (12/22/2019 8:08 AM CDT) Protime 20.7 (H) 11.9 - 14.[address] [facility] INR 1.8 <=5.9 [facility] Specimen Blood Narrative Performed At Effective 01/15/2019: PT Reference Range [facility] Change New: 11.9-14.2Previous: 11.7-14.7 RECOMMENDED COUMADIN/WARFARIN INR THERAPY RANGES STANDARD DOSE: 2.0-3.0Includes: PROPHYLAXIS for venous thrombosis, systemic embolization; TREATMENT for venous thrombosis and/or pulmonary embolus. HIGH RISK: Target INR is 2.5-3.5 for patients wiht mechanical heart valves. Performing Organization Address City/[facility] Phone Number [address] [address] [facility] Fibrinogen (12/22/2019 8:08 AM CDT) Fibrinogen 521 (H) 225 - 434 mg/dl [facility] Specimen Blood Performing Organization Address [facility] Phone Number [address] [address] [place] Procalcitonin (12/22/2019 8:07 AM CDT) Procalcitonin 7.49 (H) <0.05 ng/mL [facility] Specimen Blood Narrative Performed At SEPSIS RISK (ng/mL) [facility] Low:0.05-0.50 Intermediate: 0.51-2.00 High: >=2.01 Performing Organization Address [facility] Hospital[facility] Phone Number [address] [address] [facility] Cortisol (12/22/2019 8:07 AM CDT) Cortisol, Total 20.4 (H) 3.7 - 19.4 ug/dL [facility] Specimen Blood Narrative Performed At Record Searcher ID - [id number] [facility] Performing Organization Address City/[facility]/Zipcode Phone Number [address] [address] [facility] Type and screen, automated (12/22/2019 8:07 AM CDT)Only the most recent of4 resultswithin the time period is included. ABO/RH AUTOMATED (BEAKER) O POSITIVE [facility] Ab Scrn POSITIVEComment: Echo 2 [facility] Specimen Blood Performing Organization Address [facility] Hospital[facility] Phone Number [address] [address] Vitamin B12 and Folate (12/22/2019 8:07 AM CDT) Vitamin B12 788 213 - 816 pg/mL [facility] Folate 6.00 (L) >=7.00 ng/mL [facility] Specimen Blood Narrative Performed At Record Searcher ID - [id number] [facility] Performing Organization Address [facility] Phone Number [address] [address] [facility] TSH/Free T4 If Indicated (12/22/2019 8:07 AM CDT) TSH 0.276 (L) 0.350 - 4.940 uIU/mL [facility] Specimen Blood Narrative Performed At Record Searcher ID - NTP [facility] Performing Organization Address [facility]/Zipcode Phone Number [address] [address] [facility] Iron, TIBC, % sat. (without ferritin) (12/22/2019 8:07 AM CDT) Iron 147.0 40.0 - 160.0 ug/dL [facility] TIBC 93 (L) 250 - 450 ug/dL [facility] Iron % Saturation 158 (H) 20 - 55 % [facility] Specimen Blood Narrative Performed At Record Searcher ID - NTP [facility] Performing Organization Address [facility] Phone Number [address] [address] [place] Bilirubin, indirect (12/22/2019 8:07 AM CDT) Bilirubin, Indirect 3.3 (H) 0.0 - 1.1 mg/dL [facility] Specimen Blood Performing Organization Address [facility] Phone Number [address] [address] [place] Lactic acid, venous (12/22/2019 8:07 AM CDT) Lactate, Venous 1.65Comment: Specimen 0.50 - 2.20 mmol/L [facility] slightly hemolyzed [facility] Specimen Blood Narrative Performed At Record Searcher ID - ROMERO F [facility] Specimen moderately icteric Performing Organization Address [facility] Phone Number [address] [address] [place] Reticulocyte count (12/22/2019 8:07 AM CDT)Only the most recent of5 results within the time period is included. % Retic >30.0 (H) 0.5 - 1.7 % [facility] Specimen Blood Narrative Performed At Record Searcher ID - [id number] [facility] Performing Organization Address [facility] Phone Number [address] [address] [facility] T4, free (12/22/2019 8:07 AM CDT) Free T4 0.85 0.70 - 1.48 ng/dL [facility] Specimen Blood Narrative Performed At Record Searcher ID - [facility] Performing Organization Address City/[facility]/Zipcode Phone Number [address] [address] [facility] Lipase (12/22/2019 8:07 AM CDT) Lipase 13 8 - 78 U/L [facility] Specimen Blood Narrative Performed At Record Searcher ID - [facility] Specimen moderately icteric Performing Organization Address [facility] Phone Number [address] [address] [facility] Lactate dehydrogenase (LDH) (12/22/2019 8:07 AM CDT) LDH 2,132 (H)Comment: Specimen 125 - 220 U/L [facility] slightly hemolyzed [facility] Specimen Blood Narrative Performed At Record Searcher ID - [facility] Performing Organization Address [facility] Phone Number [address] [address] [facility] Haptoglobin (12/22/2019 8:07 AM CDT) Haptoglobin <8 (L) 14 - 258 mg/dL [facility] Specimen Blood Narrative Performed At Record Searcher ID - [facility] Performing Organization Address [facility] Phone Number [address] [address] [facility] Ferritin (12/22/2019 8:07 AM CDT)Only the most recent of2 resultswithin the time period is included. Ferritin >62864.00 (H) 5.00 - 275.00 ng/mL [facility] Specimen Blood Narrative Performed At Record Searcher ID - [facility] Performing Organization Address [facility] Phone Number [address] [address] [facility] Bilirubin, direct (12/22/2019 8:07 AM CDT) Bilirubin, Direct 2.7 (H)Comment: Specimen 0.1 - 0.5 mg/dL [facility] slightly hemolyzed [facility] Specimen Blood Narrative Performed At Record Searcher ID - [facility] Performing Organization Address [facility]/Zipcode Phone Number [address] [address] [facility] Amylase (12/22/2019 8:07 AM CDT) Amylase 20 (L)Comment: Specimen 25 - 125 U/L [facility] slightly hemolyzed [facility] Specimen Blood Narrative Performed At Record Searcher ID - [facility] Specimen moderately icteric Performing Organization Address City/[facility] Phone Number [address] [address] [facility] Comprehensive metabolic panel (12/22/2019 8:07 AM CDT) Protein, Total 9.2 (H)Comment: Specimen 6.0 - 8.3 gm/dL [facility] slightly hemolyzed [facility] Albumin 3.1 (L)Comment: Specimen 3.5 - 5.0 g/dL [facility] slightly hemolyzed [facility] Alkaline Phosphatase 162 (H) 40 - 150 U/L [facility] Total Bilirubin 6.0 (H)Comment: Specimen 0.2 - 1.2 mg/dL [facility] slightly hemolyzed [facility] Sodium 135 (L) 136 - 145 meq/L [facility] Potassium 4.9Comment: Specimen 3.5 - 5.1 meq/L [facility] slightly hemolyzed [facility] Chloride 109 (H) 98 - 107 meq/L [facility] CO2 17 (L) 22 - 29 meq/L [facility] BUN 46 (H) 7 - 21 mg/dL [facility] Creatinine 1.32 (H)Comment: 0.57 - 1.25 mg/dL [facility] Specimen slightly [facility] hemolyzed Glucose 131 (H) 70 - 105 mg/dL [facility] Calcium 8.3 (L) 8.4 - 10.2 mg/dL [facility] AST 648 (H)Comment: Specimen 5 - 34 U/L [facility] slightly hemolyzed [facility] ALT 188 (H)Comment: Specimen 6 - 55 U/L [facility] slightly hemolyzed [facility] EGFR 54Comment: ESTIMATED GFR mL/min/1.[address] [facility] IS NOT ACCURATE [facility] CREATININE CLEARANCE IN PREDICTING GLOMERULAR FILTRATION RATE. ESTIMATED GFR IS NOT APPLICABLE FOR DIALYSIS PATIENTS. Specimen Blood Narrative Performed At Record Searcher ID - [place] F [facility] Specimen moderately icteric Performing Organization Address City/State/Zipcode Phone Number [facility] [address] [place] [address] CENTER SARS-CoV2/RT-PCR ([facility]) (12/22/2019 4:10 AM CDT) SARS-COV2/RT-PCR Not Detected Not Detected, Negative [facility] SARS-COV-2 PERFORMING LAB SURGERY [facility] Specimen Other Narrative Performed At Negative results do not preclude SARS-CoV-2 [facility] infection and should not be used as the sole basis for patient management decisions. Negative results must be combined with clinical observations, patient history, and epidemiological information. A false negative result may occur if a specimen is improperly collected, transported or handled. The limit of detection for this assay is 250 copies/mL. This SARS CoV-2 test is a rapid, real-time RT-PCR test intended for the qualitative detection of nucleic acid from SARS-CoV-2 in a nasopharyngeal swab specimen collected from individuals suspected of COVID-19 by their healthcare provider. This test has not been Food and Drug Administration (FDA) cleared or approved and has been authorized by FDA under an Emergency Use Authorization (EUA). This EUA will be effective until the declaration that circumstances exist justifying the authorization of the emergency use of in vitro diagnostic tests for detection and/or diagnosis of COVID-19 is terminated under Section 564(b)(2) of the Act or the EUA is revoked under Section 564(g) of the Act. Fact Sheet for Healthcare Providers: https://www.[employer]Documents/Xpert%20Xpre ss%20SARS%20CoV-2/Fact%20Sheets/3023802%20SAR S-COV-2%20HEALTHCARE%20PROVIDERS%20FACT%20SHEE T.pdf Fact Sheet for Healthcare Patients: https://www.[employer]Documents/Xpert%20Xpre ss%20SARS%20CoV-2/Fact%20Sheets/3023801%20SAR S-COV-2%20PATIENT%20FACT%20SHEET.pdf Performing Laboratory: [address] [place] [address] Performing Organization Address City/[facility]/Zipcode Phone Number [address] [address] [place] EKG-SCANNED (10/02/2019 10:52 AM BAND SINGER)Only the most recent of2 resultswithin the time period is included. Narrative Performed At This result has an attachment that is no t available. Catheter Tip Culture (09/25/2019 11:21 AM BAND SINGER) Result No growth [facility] Specimen Other Performing Organization Address City/State/Zipcode Phone Number [address] [address] [place] IR Port Removal (09/25/2019 11:20 AM BAND SINGER) Specimen Narrative Performed At Addendum Begins GE RIS REPORT STATUS:A Addendum: ANESTHESIA: Conscious sedation was provi ded by radiology nursing using constant hemodynamic monitoring fo r 30 minutes. Versed IV 0.5 mg, Dilaudid 2 mg. Signed: Carlos Rey MD Report Verified Date/Time:09/25/2019 11:46:52 Reading Location: [place] [address] Angio Body Reading Room Addendum Ends FINAL REPORT PROCEDURE: Venous Port Removal CLINICAL HISTORY: infected RFP WRITER: Carlos Rey DO, JD ANESTHESIA: Local lidocaine. RADIATION DOSE INFORMATION: (Ka,r) 2 mGy . Estimated Blood Loss: < 5cc Samples: None. PROCEDURE: The risks, benefits, and alte rnatives to the procedure were discussed with the patient.All questions were answered and written informed consent was obtained. A universal timeout was performed prior to starting the procedur e.For Prevention of Central Venous Catheter (CVC)-Related Bloodstrea m Infections all elements of maximal sterile barrier technique, hand hygiene, skin preparation and sterile techniques were followed. Preprocedure imaging was obtained. After local anesthesia, an incision was made through the existing s car over the right chest port reservoir. Using sharp and blunt dissect ion and gentle traction, the port reservoir and catheter were removed in their entirety.After confirming hemostasis, the pocket was cl osed with 3-0 Vicryl suture. The incision was covered with glue, Ster i-Strips and a sterile dressing. The patient tolerated the proc edure well without immediate complication. IMPRESSION: Successful removal of a right IJV chest port. Signed: Carlos Rey MD Report Verified Date/Time:09/25/2019 11:37:20 Reading Location: [place] [address] Angio Body Reading Room Procedure Note Interface, External Ris In - 09/25/2019 11:49 AM BAND SINGER Addendum Begins REPORT STATUS:A Addendum: ANESTHESIA: Conscious sedation was provi ded by radiology nursing using constant hemodynamic monitoring fo r 30 minutes. Versed IV 0.5 mg, Dilaudid 2 mg. Signed: Carlos Rey MD Report Verified Date/Time: 09/25/2019 1 1:46:52 Reading Location: [place] [address] Angio Body Reading Room Addendum Ends FINAL REPORT PROCEDURE: Venous Port Removal CLINICAL HISTORY: infected RFP WRITER: Carlos Rey DO, JD ANESTHESIA: Local lidocaine. RADIATION DOSE INFORMATION: (Ka,r) 2 mGy . Estimated Blood Loss: < 5cc Samples: None. PROCEDURE: The risks, benefits, and alte rnatives to the procedure were discussed with the patient. All qu estions were answered and written informed consent was obtained. A universal timeout was performed prior to starting the procedur e. For Prevention of Central Venous Catheter (CVC)-Related Bloodstrea m Infections all elements of maximal sterile barrier technique, hand hygiene, skin preparation and sterile techniques were followed. Preprocedure imaging was obtained. After local anesthesia, an incision was made through the existing s car over the right chest port reservoir. Using sharp and blunt dissect ion and gentle traction, the port reservoir and catheter were removed in their entirety. After confirming hemostasis, the pocket was cl osed with 3-0 Vicryl suture. The incision was covered with glue, Ster i-Strips and a sterile dressing. The patient tolerated the proc edure well without immediate complication. IMPRESSION: Successful removal of a right IJV chest port. Signed: Carlos Rey MD Report Verified Date/Time: 09/25/2019 1 1:37:20 Reading Location: [place] [address] Angio Body Reading Room Performing Organization Address City/State/Zipcode Phone Number GE RIS PT/aPTT (09/25/2019 5:14 AM BAND SINGER) Protime 14.4 (H) 11.9 - 14.[address] [facility] INR 1.2 <=5.9 [facility] PTT 31.4 22.5 - 36.[address] [facility] Specimen Blood Narrative Performed At Effective 01/15/2019: PT Reference Range [facility] Change New: 11.9-14.2Previous: 11.7-14.7 RECOMMENDED COUMADIN/WARFARIN INR THERAPY RANGES STANDARD DOSE: 2.0-3.0Includes: PROPHYLAXIS for venous thrombosis, systemic embolization; TREATMENT for venous thrombosis and/or pulmonary embolus. HIGH RISK: Target INR is 2.5-3.5 for patients wiht mechanical heart valves. Performing Organization Address City/State/Zipcode Phone Number [facility] [address] [place], [place] [phone] [place] Screen, urine (09/24/2019 10:59 PM BAND SINGER)Only the most recent of2 resultswithin the time period is included. Preg Test, Ur Negative [facility] Specimen Urine Performing Organization Address City/[facility]/Zipcode Phone Number [facility] [address] [place] [address] [place] Manual Differential (07/20/2019 9:31 AM BAND SINGER)Only the most recent of12 results within the time period is included. % Neutros (manual) 48 % [facility] % Lymphs (manual) 19 % [facility] % Monos (manual) 29 % [facility] % Eos (manual) 3 % [facility] % Atypical Lymphs 1 (H) 0 - 0 % [facility] # Neutros (manual) 7.15 1.80 - 8.00 K/L [facility] # Lymphs (manual) 2.83 1.48 - 4.50 K/L [facility] # Monos (manual) 4.32 (H) 0.00 - 1.30 K/L [facility] # Eos (manual) 0.45 0.00 - 0.50 K/L [facility] # Atypical Lymphs 0.15 (H) 0.00 - 0.00 K/L [facility] Total Counted 100 [facility] WBC Morphology Normal [facility] Platelet Morphology Normal [facility] Hypochromia 2+ moderate [facility] Sickle Cells 3+ many [facility] Target Cells 2+ moderate [facility] Tear Drop Cells 1+ few [facility] Specimen Blood Performing Organization Address City/[facility]/Zipcode Phone Number [facility] [address] [place], [place] [address] [place], manual (07/19/2019 10:34 AM BAND SINGER)Only the most recent of2 resultswithin the time period is included. ABO Grouping OComment: Testing performed by: [facility], [address] [place] [id number] Rh Factor POSComment: Testing performed [facility] by: [facility], [address] [place] [id number] Specimen Blood Performing Organization Address City/[facility]/Zipcode Phone Number [facility] [address] [place], [place] [phone] [facility] Immature reticulocyte fraction (07/14/2019 5:07 AM BAND SINGER)Only the most recent of2 resultswithin the time period is included. Immature Reticulocyte 25.300 (H)Comment: 3.000 - 15.900 % [facility] Fraction [facility] % Retic 8.2 (H) 0.5 - 1.7 % [facility] Specimen Blood Performing Organization Address City/[facility] Phone Number [address] [phone] CENTER Prepare Leuko-Red & Irrad RBC (07/12/2019 11:55 PM BAND SINGER)Only the most recent of2 resultswithin the time period is included. Unit ABO O Pos [employer]AFETRACE TX UNIT NUMBER [id number] SAFETRACE TX Status TX_TIMEINCHART [facility] [place] Blood Bank Product RED BLOOD CELLS SAFETRACE TX PRODUCT CODE [id number] SAFETRACE TX CROSSMATCH COMPATIBLE [facility]ACE TX Specimen Other Performing Organization Address City/[facility] Phone Number SAFETRACE TX Transfuse Leuko-Red & Irrad RBC (07/10/2019 5:46 AM BAND SINGER)Only the most recent of2 resultswithin the time period is included.Potassium (07/09/2019 4:58 AM BAND SINGER) Potassium 5.0 3.6 - 5.5 meq/L [facility] Specimen Blood Performing Organization Address City/[facility]/Zipcode Phone Number [facility] [address] [place], [place] [address] ECG/EKG Interpretation (07/09/2019 12:11 AM BAND SINGER) [facility]arrative [facility] DO 10/20/2019 12 :43 AM ECG/EKG Interpretation Date/Time: 07/08/2019 7:00 PM Performed by: Lencho Baptiste III, DO Authorized by: Radha Sotomayor MD The ECG was interpreted by ED physician. This ECG was not compared with previous ECG(s).The ECG is interpreted a s sinus rhythm. Rate is normal rate. Heart rate is 95 BPM. Conduction: conduction normal. ST segmen ts normal. T waves normal. Clinical Impression: normal ECGECG revie wed and does not meet STEMI criteria. Patient tolerance: Patient tolerated the pro cedure well with no immediate complications CRITICAL CARE (07/09/2019 12:11 AM BAND SINGER) Narrative Performed At Emile[facility] her III, 10/20/2019 12 :43 AM Critical Care Performed by: Lencho Baptiste III, DO Authorized by: Radha Sotomayor MD Total critical care time: 35 minutes Critical care time was exclusive of sepa rately billable procedures and treating other patients. Critical care was necessary to treat or prevent imminent or life-threatening deterioration of the fo llowing conditions: dehydration and metabolic crisis. Critical care was time spent personally by me on the f ollowing activities: discussions with consultants, discussion s with primary provider, evaluation of patient's response to melissa tment, examination of patient, obtaining history from patient or surrog ate, ordering and performing treatments and interventions, ordering and review of l aboratory studies, ordering and review of radiographic studies, pulse oxi metry, re-evaluation of patient's condition and review of old charts. Urinalysis w/Microscopic (07/08/2019 7:16 PM BAND SINGER) Color, UA Yellow [facility] Clarity, UA Clear [facility] Specific [place], UA 1.010 1.001 - 1.035 [facility] pH, UA 8.5 (H) 5.0 - 8.0 [facility] Protein, UA Negative Negative [facility] Glucose, UA Negative Negative [facility] Ketones, UA Negative Negative [facility] Bilirubin, UA Negative Negative [facility] Blood, UA Trace (A) Negative [facility] Nitrite, UA Negative Negative [facility] Leukocytes, UA Negative Negative [facility] Urobilinogen, UA 2.0 (H) 0.2 - 1.0 mg/dL [facility] Bacteria, UA None Seen [facility] Amorphous Crystals Moderate [facility] RBC, UA None Seen /HPF [facility] WBC, UA None Seen /HPF [facility] SQUAMOUS EPITHELIAL <5 /HPF [facility] Specimen Source [facility] Specimen Urine Performing Organization Address City/State/Zipcode Phone Number [facility] [address] [facility] [place], [place] [address] after 02/22/2019 Insurance Payer Benefit Plan / Group Subscriber ID Type Phone A ddress [facility] [employer] HMO xxxxxxxxx MEDICARE MGD CARE CDC REVIEW CDC REVIEW xxxxxxxx [address] [place] [place] [address] Advance Directives For more information, please contact:[address] [phone] Code Status Date Activated Date Inactivated Comments Full Code 12/22/2019 7:21 AM 12/28/2019 4:56 PM This code status was determined by: Patient Full Code 09/24/2019 7:18 AM 09/30/2019 8:23 PM This code status was determined by: Patient Full Code 07/08/2019 9:42 PM 07/21/2019 4:12 PM This code status was determined by: Patient Full Code 09/27/2018 10:42 PM 12/30/2018 3:56 AM This code status was determined by: Patient Full Code 01/29/2018 3:26 PM 02/08/2018 7:05 PM This code status was determined by: Patient
--- OUTSIDE RECORDS SUMMARY | 2020-02-23 07:48 | XMS REPORT | Continuity of Care Document ---
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) Transient ischemic Resolved Problem 09/13/2014 [facility] attack (disorder) [place] HB-SS DISEASE W Active [facility]as [facility] Medications Medication Details Route Status Patient Ordering Order Source Instructions Provider Date 12 HR Oxymorphone 30 mg = 1 tab, Active [place] Hydrochloride 30 PO, Q12H, 0 2014 [facility] ical MG Extended Refill(s) Center Release Tablet [Opana] Lovenox Notes: (Same No Longer [facility] as: Lovenox) Active [address] [place] [address] Promethazine Notes: Do not No Longer [facility] give IV push. Active 2014 [facility] (Same as: [place] Phenergan) Hydromorphone Notes: (Same No Longer [facility] as: Dilaudid) Active 2014 Medical conc = 0.5 Center mg/ml Hydromorphone CASE LINER Dose: ;Delay: ;Basal: Naloxone Notes: Same as No Longer [place] as Narcan Active 2014 [facility] Naproxen 500 mg, 1 tab, No Longer [place] as Route: PO, Drug Active 2014 Medical form: TAB, BID, Center Dosing Weight 68.182, kg, Start date: 09/09/14 17:00:00, Duration: 30 day, Stop date: 10/09/14 9:00:00 Acetaminophen Notes: Do not No Longer [facility] exceed 4 Active 2014 Medical gm/day. (Same Center as: Tylenol) 1/2 NS 1000 mL 1,000 mL, Rate: No Longer [place] 50 ml/hr, Active 2014 Medical Infuse over: 20 Center hr, Route: IV, Dosing Weight 68.182 kg, Total Volume: 1,000, Start date: 09/09/14 10:12:00, Duration: 30 day, Stop date: 10/09/14 10:11:00 Oxycodone Notes: (Same [place] Hydrochlor[place] 5 as: Roxicodone) Active 2014 Medical MG Oral Tablet Center Op[place]: [place] Op[place] Active 2014 [facility] oxyMORPHone 30 mg, Route: [place] PO, Q12H, 2014 Medic al Dosing Weight Center 70, kg, Start date: 09/09/14 9:00:00, Duration: 30 day, Stop date: 10/08/14 21:00:00 Docusate Notes: (Same No Longer [place] as: Colace) (Do Active 2014 [facility] Not Crush) Center Dilaudid Notes: Same as: [place] Longer [place] Dilaudid Active 2014 [facility] normal saline 1,000 mL, Rate: Inactive [place] 0.9% IV 1,000 mL 125 ml/hr, 2014 Medi taryn Infuse over: 8 Center hr, Route: IV, Dosing Weight 70 kg, Total Volume: 1,000, Priority: STAT, Start date: 09/09/14 5:13:00, Duration: 1 doses or times, Stop date: 09/09/14 13:12:00 Ondansetron 4 mg, Route: Inactive [place] IVP, Q8H, 2014 Medical Dosing Weight Center 70, kg, PRN Nausea & Vomiting, Start date: 09/09/14 5:11:00, Duration: 30 day, Stop date: 10/09/14 5:10:00 Acetaminophen 325 1 tab, Route: Inactive [place] MG / Hydrocodone PO, Drug Form: 2014 Medical Bitartrate 5 MG TAB, Dosing Cent er Oral Tablet Weight 70, kg, Q4H, PRN Pain Score 1-3, Start date: 09/09/14 5:11:00, Duration: 30 day, Stop date: 10/09/14 5:10:00 Sodium Chloride 1,000 mL, 1000 Inactive [place] 0.154 MEQ/ML ml/hr, Infuse 2014 Medic al Injectable Over: 1 hr, [place] Solution Route: IV, 1,000, Drug form: INJ, ONCE, Priority: STAT, Dosing Weight 70 kg, Start date: 09/09/14 5:08:00, Duration: 1 doses or times, Stop date: 09/09/14 5:08:00 Dilaudid Notes: Same as: Inactive [place] as Dilaudid 2014 [facility] Phenergan Notes: [place] not [place] give IV push. 2014 Medical (Same as: [place] Phenergan) Benadryl 25 mg, Route: Inactive [place] PO, Drug form: 2015 Medical CAP, ONCE, Center Dosing Weight 70, kg, Priority: STAT, Start date: 09/09/14 3:43:00, Stop date: 09/09/14 3:43:00 Dilaudid 2 mg, Route: Inactive [place] IV, ONCE, 2014 Medical Dosing Weight Center 70, kg, Start date: 09/09/14 3:43:00, Stop date: 09/09/14 3:43:00 Diphenhydramine 1 appl, Route: Inactive [place] Hydrochloride 20 TOP, ONCE, Drug 2014 Medical MG/ML Topical form: [facility] Cream [Benadryl] Start date: 09/09/14 3:43:00, Stop date: 09/09/14 3:43:00 Phenergan 12.5 mg, Route: [place] IVPB, ONCE, 2014 Medical Dosing Weight Center 70, kg, Priority: STAT, Start date: 09/09/14 2:13:00, Stop date: 09/09/14 2:13:00 Dilaudid 2 mg, Route: Inactive [place] IV, ONCE, 2014 Medical Dosing Weight Center 70, kg, Start date: 09/09/14 2:13:00, Stop date: 09/09/14 2:13:00 Benadryl 25 mg, Route: [facility] [place] [facility], [facility], Active 2014 Medical Dosing Weight Center 70, kg, Start date: 09/08/14 23:41:00, Stop date: 09/08/14 23:41:00 Phenergan 25 mg, Route: No Longer [place] as PO, ONCE, Active 2014 Medical Dosing Weight Center 70, kg, Priority: STAT, Start date: 09/08/14 23:41:00, Stop date: 09/08/14 23:41:00 Hydromorphone 2 mg, Route: No Longer [facility] IVP, ONCE, Active 2014 Medical Dosing Weight Center 70, kg, Priority: STAT, Start date: 09/08/14 23:41:00, Stop date: 09/08/14 23:41:00 Saline Flush 0.9% Notes: Same as: No Longer 08/21 [place] BD Posiflush Active [address] [place] [address] Allergies, Adverse Reactions, Alerts Substance Category Reaction Severity Reaction Status Date Comments S ource type Reported morphine Assertion Drug Active [facility] Stadol Assertion Drug Active [facility] as [facility] Toradol Assertion Drug Active [place] as [facility] traMADol Assertion Drug Active [facility] Zofran Assertion Drug Active [facility] as [facility] Immunizations No Data Provided for This Section Results Order Name Results Value Reference Date Interpretation Comments Blanca rce Range CHEM PANEL LDH 507 98 - 192 09/[address] ELECTROLYTE AGAP 10.8 10.0 - 09/11 [facility] S 20.0 [facility] ELECTROLYTE Calcium Lvl 8.4 8.5 - 10.5 09/11 [facility] /2014 [facility] ELECTROLYTE CO2 27 24 - 32 09/11 [facility] /2014 [facility] ELECTROLYTE Chloride Lvl 108 95 - 109 09/11 [place] as S /2014 [facility] ELECTROLYTE eGFR 130 09/11 <sup>3</sup>R [place] as [facility] Medical Comment: The Center eGFR is calculated [...] ELECTROLYTE BUN 4 7 - 22 09/11 [facility] ELECTROLYTE Glucose Lvl 82 70 - 99 09/11 <sup>6</sup>I [facility] nterpretive Medical Data: Adult Center reference range values reflect the clinical guidelines
of the [place] [employer]. ELECTROLYTE Sodium Lvl 142 135 - 145 09/11 [facility] s S [facility] ELECTROLYTE Creatinine 0.7 0.5 - 1.4 09/11 [facility] s S [facility] ELECTROLYTE Potassium 3.8 3.5 - 5.1 09/11 [facility] S l [facility] HEMATOLOGY Retic Auto 16.5 0.5 - 1.5 09/11 [facility] HEMATOLOGY RDW 25.5 11.5 - 09/11 [place] 14.5 [facility] HEMATOLOGY MPV 8.6 7.4 - 10.4 09/11 [facility] HEMATOLOGY Platelet 213 133 - 450 09/11 [facility] HEMATOLOGY Hct 19.8 36.0 - 09/11 [place] 48.0 [facility] HEMATOLOGY Hgb 6.7 12.0 - 09/11 <sup>9</sup>R [facility] s 16.0 esult Medical Comment: Center Critical Result(s) called to Lexi Hendrix at 09/11/2014 03:23 by SUSHMA. Read back OK. HEMATOLOGY MCV 97.9 80.0 - 09/11 [place] 98.0 [facility] HEMATOLOGY MCHC 34.0 32.0 - 09/11 [place] 36.0 [facility] HEMATOLOGY MCH 33.3 27.0 - 09/11 [place] 31.0 [facility] HEMATOLOGY WBC X 10x3 14.1 3.7 - 10.4 09/11 [place] /2014 [facility] HEMATOLOGY RBC X 10x6 2.02 4.20 - 09/11 [place] 5.40 /2014 [facility] BLOOD BANK Antibody Positive 1 09/10 <sup>1</sup>R [place] RESULTS Scrn (09/10/14 8:01 AM) /2014 esult Medica l Comment: [place] 09/10/2014 09:24 [id number]
"Significant Findings of Positive Antibody Screen called to Magan Stinson at 0920 by SI. Read Back OK" BLOOD BANK ABO/Rh O POS 09/10 [place] RESULTS /2014 [facility] BLOOD BANK Path MEGHAN This 09/10 [facility] RESULTS patient Medical a positive [place] Direct Antiglobuli n Test (MEGHAN) with IgG [...] concur with the resident's interpretat ion. CPT: 99737-VD BLOOD BANK Path AB Current 09/10 [facility] RESULTS testing Medical shows the [place] patient has an anti-E and anti-c. The [...] a history of sickle cell disease. The MGEHAN is weakly positive with a negative [place]. [...] concur with the resident's interpretat ion. CPT: 07409-MO BLOOD BANK HX Antigen Le(a) neg 09/10 [place] RESULTS [facility] BLOOD BANK HX Antigen Jk(b) pos 09/10 [place] RESULTS [facility] Center BLOOD BANK HX Antigen K neg 09/10 RESULTS [facility] BLOOD BANK HX Antigen Jk(a) pos 09/10 RESULTS /2014 [facility] BLOOD BANK HX Antigen Fy(b) neg 09/10 RESULTS [facility] Center BLOOD BANK HX Antigen Fy(a) pos 09/10 [place] RESULTS [facility] Center BLOOD BANK HX Antigen C pos 09/10 [place] RESULTS /2014 [facility] Center BLOOD BANK HX Antigen E neg 09/10 [place] RESULTS [facility] Center BLOOD BANK HX Antigen Cw neg 09/10 [place] RESULTS /2014 [facility] Center BLOOD BANK HX Antigen M pos 09/10 [place] RESULTS /2014 [facility] Center BLOOD BANK HX Antigen s pos 09/10 [place] RESULTS /2014 [facility] Center BLOOD BANK HX Antigen c neg 09/10 [place] RESULTS [facility] Center BLOOD BANK HX Antigen N neg 09/10 [place] RESULTS [facility] BLOOD BANK HX Antigen P1 pos 09/10 [place] RESULTS [facility] BLOOD BANK HX Antigen S neg 09/10 [place] RESULTS /2014 [facility] BLOOD BANK HX Antigen Le(b) neg 09/10 [place] RESULTS /2014 [facility] BLOOD BANK HISTORICAL Anti-S 09/10 [place] RESULTS AB [facility] BLOOD BANK HISTORICAL Anti-Bg(a) 09/10 [place] RES[place] [facility] BLOOD BANK HISTORICAL Anti-Cw 09/10 [place] RESULTS AB [facility] BLOOD BANK C3 Int Negative 09/10 [place] RESULTS (09/10/14 8:01 AM) /2014 [facility] BLOOD BANK [place] Int See Note 09/10 <sup>2</sup>R [place] RESULTS esult Medical Comment: Center 09/10/2014 12:56 [id number]
[place] non reactive with all cells tested. BLOOD BANK MEGHAN Gel Int Positive 09/10 [place] RESULTS (09/10/14 8:01 AM) /2014 [facility] BLOOD BANK AB Int Anti-E 09/10 [place] RESULTS /2014 [facility] BLOOD BANK AB Int Anti-c 09/10 [place] RESULTS /2014 [facility] HEMATOLOGY Hgb 6.3 12.0 - 09/10 <sup>10</sup> [place] 16.0 Result Medical Comment: Center Critical Result(s) called to JB LONDONO at _09/10/2014 07:45 byMK_. Read back OK. CHEM PANEL LDH 496 98 - 192 09/10 /2014 [facility] ELECTROLYTE AGAP 11.8 10.0 - 09/10 [place] S 20.0 [facility] ELECTROLYTE eGFR 137 09/10 <sup>4</sup>R [place] as S /2014 esult Medical Comment: The Center eGFR is [...] Calcium Lvl 8.3 8.5 - 10.5 09/10 [place] [facility] ELECTROLYTE Chloride Lvl 113 95 - 109 09/10 [facility] as [facility] ELECTROLYTE Sodium Lvl 144 135 - 145 09/10 [facility] s [facility] ELECTROLYTE Glucose Lvl 81 70 - 99 09/10 <sup>7</sup>I [facility] nterpretive Medical Data: Adult Center reference range values reflect the clinical guidelines
of the [place] [employer]. ELECTROLYTE BUN 4 7 - 22 09/10 [facility] ELECTROLYTE Creatinine 0.6 0.5 - 1.4 09/10 [facility] S [facility] ELECTROLYTE CO2 23 24 - 32 09/10 [facility] ELECTROLYTE Potassium 3.8 3.5 - 5.1 09/10 [facility] HEMATOLOGY Hgb 6.2 12.0 - 09/10 <sup>11</sup> [facility] 16.0 Result Medical Comment: Center Critical Result(s) called to Amy Fraga at 09/10/2014 06:07 by negrita. Read back OK. HEMATOLOGY WBC 15.9 3.7 - 10.4 09/10 [facility] HEMATOLOGY RBC 1.85 4.20 - 09/10 [place] 5.40 /2014 [facility] HEMATOLOGY Hct 18.2 36.0 - 09/10 [place] 48.0 [facility] HEMATOLOGY MCV 98.3 80.0 - 09/10 [place] 98.0 /2014 [facility] HEMATOLOGY RDW 25.4 11.5 - 09/10 [place] 14.5 /2014 [facility] HEMATOLOGY Platelet 190 133 - 450 09/10 [facility] HEMATOLOGY MCH 33.6 27.0 - 09/10 [place] 31.0 [facility] HEMATOLOGY MCHC 34.2 32.0 - 09/10 [place] 36.0 [facility] HEMATOLOGY MPV 8.5 7.4 - 10.4 09/10 [facility] HEMATOLOGY Retic Auto 15.8 0.5 - 1.5 09/10 [facility] ELECTROLYTE AGAP 13.7 10.0 - 09/09 [facility] S 20.0 [facility] ELECTROLYTE eGFR 96 09/09 <sup>5</sup>R [facility] [employer] Medical Comment: The Center eGFR is calculated [...] Calcium Lvl 9.1 8.5 - 10.5 09/09 [place] [facility] ELECTROLYTE Potassium 3.7 3.5 - 5.1 09/09 [facility] S [facility] ELECTROLYTE Sodium Lvl 142 135 - 145 09/09 [facility] ELECTROLYTE Glucose Lvl 106 70 - 99 09/09 <sup>8</sup>I [facility] nterpretive Medical Data: Adult Center reference range values reflect the clinical guidelines
of the [place] [employer]. ELECTROLYTE Creatinine 0.9 0.5 - 1.4 09/09 [facility] S [facility] ELECTROLYTE BUN 6 7 - 22 09/09 [facility] ELECTROLYTE CO2 26 24 - 32 09/09 [facility] ELECTROLYTE Chloride Lvl 106 95 - 109 09/09 [facility] HEMATOLOGY Sickle Cell Slight 09/09 [facility] HEMATOLOGY Schistocyte 1-3 per HPF None Seen 09/09 [facility] (09/09/14 2:13 AM) /2014 [facility] HEMATOLOGY Tear Cell Slight 09/09 [facility] HEMATOLOGY Target Cell Moderate None Seen 09/09 [place] as *ABN* /2014 Medical (09/09/14 2:13 AM) Center HEMATOLOGY Polychrom Slight 09/09 [facility] HEMATOLOGY Plt Morph Normal 09/09 [facility] (09/09/14 2:13 AM) /2014 [facility] HEMATOLOGY Tot Cell Ct 100 09/09 /2014 [facility] HEMATOLOGY Bands 0.0 0.0 - 11.0 09/09 /2014 [facility] HEMATOLOGY Segs 49.0 45.0 - 09/09 [place] 75.0 [facility] HEMATOLOGY Macrocyte 1+ None Seen 09/09 [place] *ABN* /2014 Medical (09/09/14 2:13 AM) [place] HEMATOLOGY Anisocyte 1+ None Seen 09/09 [place] *ABN* /2014 Medical (09/09/14 2:13 AM) Center HEMATOLOGY NRBC 2 09/09 [facility] HEMATOLOGY Atypical 0.0 <=0.0 % 09/09 [facility] Lymphs [facility] HEMATOLOGY Eosinophils 3.0 0.0 - 4.0 09/09 [place] /2014 [facility] HEMATOLOGY Monocytes 14.0 2.0 - 12.0 09/09 [facility] HEMATOLOGY Lymphocytes 34.0 20.0 - 09/09 [place] 40.0 [facility] HEMATOLOGY Eosinophils 0.6 0.0 - 0.5 09/09 [place] # /2014 [facility] HEMATOLOGY Monocytes # 2.7 0.0 - 0.8 09/09 [place] /2014 [facility] HEMATOLOGY Lymphocytes 6.5 1.0 - 5.5 09/09 [place] # /2014 [facility] HEMATOLOGY Segs-Bands # 9.3 1.5 - 8.1 09/09 [place] [facility] HEMATOLOGY Retic Auto 16.6 0.5 - 1.5 09/09 /2014 [facility] HEMATOLOGY MPV 8.3 7.4 - 10.4 09/09 /2014 [facility] HEMATOLOGY RDW 25.8 11.5 - 09/09 [place] 14.5 [facility] HEMATOLOGY MCHC 34.3 32.0 - 09/09 [place] 36.0 [facility] HEMATOLOGY Platelet 220 133 - 450 09/09 /2014 [facility] HEMATOLOGY MCV 99.8 80.0 - 09/09 [facility] [place] 98.0 /2014 [facility] HEMATOLOGY Hct 22.7 36.0 - 09/09 [facility] 48.0 /2014 [facility] HEMATOLOGY MCH 34.2 27.0 - 09/09 [facility] 31.0 /2014 [facility] HEMATOLOGY WBC 19.0 3.7 - 10.4 09/09 [facility] HEMATOLOGY RBC 2.28 4.20 - 09/09 [facility] 5.40 /2015 [facility] Center Pathology Reports No Data Provided for This Section Diagnostic Reports No Data Provided for This Section Consultation Notes No Data Provided for This Section Discharge Summaries No Data Provided for This Section History and Physicals No Data Provided for This Section Vital Signs Vital Sign Value Date Comments Source Respitory Rate 18 09/12/2014 [facility] Systolic (mm Hg) 120 09/12/2014 [facility] Heart Rate 80 09/12/2014 [facility] Diastolic (mm Hg) 80 09/12/2014 [facility] Temperature Oral (F) 98.0 F 09/12/2014 [facility] Diastolic (mm Hg) 82 09/11/2014 [facility] Respitory Rate 18 09/11/2014 [facility] Systolic (mm Hg) 132 09/11/2014 [facility] Heart Rate 82 09/11/2014 [facility] Temperature Oral (F) 98.4 F 09/11/2014 [facility] Respitory Rate 16 09/11/2014 [facility] Heart Rate 86 09/11/2014 [facility] Systolic (mm Hg) 120 09/11/2014 [facility] Diastolic (mm Hg) 86 09/11/2014 [facility] Temperature Oral (F) 98.1 F 09/11/2014 [facility] Weight 70.591 09/10/2014 [facility] Weight 68.182 09/09/2014 [facility] BMI Calculated 26.63 09/09/2014 [facility] taryn [place] Height 160.02 cm 09/09/2014 [facility] Weight 70 09/09/2014 [facility] Height 160.02 cm 09/09/2014 [facility] BMI Calculated 27.34 09/09/2014 [facility] Encounters Location Location Encounter Encounter Reason Attending ADM DC Stat us Source Details Type Number For Provider Date Date Visit [facility] Inpatient [id number] Josiane 09/09 09/12 [facility] Roly Oliva /2014 [facility] Procedures No Data Provided for This Section Assessment and Plan Assessment and Plan Date Source Extracted from:Title: Discharge Summary 09/12/2014 [facility] Author: Josiane Oliva MD Date: 09/12/14 Discharge Summary Date of Admission:09/09/2014 Date of Discharge:09/11/2014 Admitting physician:Dr. Ha Mann Physician at discharge: Dr. Josiane Oliva Admitting diagnoses: 1. Sickle cell anemia pain crisis 2. Leukocytosis Discharge diagnoses: 1. Acute sickle cell anemia crisis 2. acute pain 3. Metabolic acidosis 4. Constipation Hospital course: Ms. Berg is a 34 year old woman with si ckle cell anemia who presented with pain crisis. She required dilaudid CASE LINER bolusdoses in addition to PO long acting narcotic medication and NSAID, Tylenol. She wa s given opana 20mg q12h, PRN oxycodone a nd Dilaudid CASE LINER 0.2mg bolus q 10min lockout. On day o discharge, she felt she could manage her pain with oral medication at home and wsa discharged. Procedures: none Consultations: none Discharge medications: see discharge medication reconciliation form Discharge condition: good Followup: with her tugboat pilot as outpatient Time spent on discharge: 40 minutes incl uding counseling with patient regarding her emotional hardships contributing to her pain The patient was examined by me on day of discharge. Extracted from:Title: General Admission H&P * Author: Ha Mann MD Date: 09/09/14 Patient: RODRIGO BERG MR N: [id number] Age: 34 years Sex: Female : 1980 Associated Diagnoses: None Author: Ha Mann MD Chief Complaint CC: sickle cell pain History of Present Illness 34 yr F with history CVA, h/o seizure who presents with sick le cell crisis. Patient started having her usual sickle cell pain yesterday: back pain, chest pain, le pain. Patient states that this pain is typical for her sickle crisis. Patient denies any triggers. She saw her tugboat pilot sunday: white c ount 19, hg 7.4 which is unchanged in [...] no weight loss, fever, chills, weakness or f atigue Heent: no visual loss, double vision, no hearing loss, sneez ing, runny nose skin: no rash or itching cardiovascular: +chest pain; no palpitation or edema respiratory: no SOB, cough, or sputum gastrointestinal: no anorexia, nausea, v omiting, or diarrhea, no abdominal pain or bloody stool genitourinary: no burning on urination neuro: no headache, dizziness,syncope, a taxia, no change in bowel/bladder function muscloskeletal: see [...] Strength 2% topical cream: 1 appl, TOP, ONC E Dilaudid: 1 mg, IVP, Q3H Dilaudid: 2 mg, IV, ONCE NS (Bolus) IV: 1,000 mL, 125 ml/hr, IV, ONCE Phenergan: 12.5 mg, IVPB, ONCE Saline Flush 0.9%: 10 mL, IVP, PRN, PRN: Line Flush docusate: 100 mg, PO, BID normal saline 0.9% IV 1000 mL: 125 ml/hr, IV, Stop: 09/09/14 13:12:00 Histories Past Medical History: Resolved CVA - Cerebrovascular accident ([id number]): Resolved. TIA ([id number]): Resolved. Sickle cell anemia ([id number]): Resolved. Aplastic anemia ([id number]): Resolved. Family History: No family history items have been selected or recorded. Social History Social and Psychosocial Habits Tobacco 09/09/2014 Use: Never smoker Exposure to Tobacco Smoke None Cigarette Smoking Last 365 Days No Reg Smoking Cessation Counseling Yes . Physical Examination VS/Measurements Vital Signs (last 24 hrs) Last C harted Minimum Maximum Temp 98.1 (SEP 09 03:59) [...] 03:59) 89 (SEP 09 00:07) H 100 ( 02:30) Weight 70 (SEP 08:51) Height 160.02 (SEP 08:51) BMI 27.34 (SEP 08:51) General: Alert and oriented, No acute distress. Eye: Pupils are equal, round and reacti ve to light, Extraocular movements are intact, Normal conjunctiva. HENT: Oral mucosa is moist, No pharyngeal erythema, O/P tasneem ar. Respiratory: Respirations are non-labor ed, clear to ausculation bilaterally, no rales, wheezes Cardiovascular: Normal rate, Regular rh ythm, No murmur, Normal peripheral perfusion, no lower extremity edema Abdomen: Soft, non-tender, non-distended, normal bowel sound s Integumentary: Warm, well purfused, no rashes Neurologic: Alert, Orientedx4, CN g rossly intact, reflexes symmertric bilaterally, 5/5 strength in [...] and Plan #sickle cell crisis: unclear trigger; wi ll cont IV hydration; cont dilaudid IV as needed; xray negative for PNA; check UA. -will cont oxymorphone 20mg bid home dose. #leukocytosis: likely reactive; unchange d from last sunday office visit with tugboat pilot Dr. Guaman; xray negative; UA pending #acute pain: cont IV dialudid prn q3hrs, cont home oxy morphone ; cont IV fluids #h/o HTN: during sickle crisis, monitor BP regular diet Addendum by Ha Mann MD on 09/09/2014 06:24 correction: oxymorphone is 30mg q12. Plan of Care No Data Provided for This Section Social History Social History Date Source Social History TypeResponse 09/09/2014 [facility] Alcohol Use: Never Smoking Status Never smoker, Exposure to Tobacco Smoke None, Cigarette Smoking Last 365 Days No, Reg Smoking Cessation Counseling Yes Family History No Data Provided for This Section Advance Directives No Data Provided for This Section Functional Status No Data Provided for This Section
[2020-02-23] MEDS ORDERED: HYDROMORPHONE HCL 1 MG/ML INJ ONE ×3 (08:09→10:36)
[2020-02-23] MEDS ORDERED: PROMETHAZINE INJ 25 MG/ML AMP ONE ×3 (08:09→10:35)
[2020-02-23] MEDS ORDERED: NA CHLORIDE 0.9% 1,000 ML ONE (08:09)
[2020-02-23] MEDS ORDERED: DIPHENHYDRAMINE 50 MG/ML VIAL ONE ×3 (08:09→10:35)
[2020-02-23 08:18] LABS: Protime INR 1.21
--- OUTSIDE RECORDS SUMMARY | 2020-02-23 08:19 | XMS REPORT | Continuity of Care Document ---
:1980 Author Organization [facility] t Address [facility] [place] [address] Care Team Providers Name Role Phone Pb VERAS, Carlos Primary Care Physician Thuy Jay MD Attending Clinician Ananth Walker MD Attending Clinician Rolando Rivera MD Attending Clinician Neal VERAS Attending Clinician ANANTH WALKER Attending Clinician Unavailable NEAL Attending Clinician Unavailable Emile DO Attending Clinician Brooklynn VERAS Attending Clinician Bari Arias MD Attending Clinician EMILE Attending Clinician Unavailable Carlos Ambriz MD Attending Clinician QUENTIN CARRIZALES Attending Clinician Unavailable Lexi CIFUENTES Attending Clinician Unavailable Pj Attending Clinician ANANTH WALKER Admitting Clinician Unavailable NEAL Admitting Clinician Unavailable BROOKLYNN Admitting Clinician Unavailable QUENTIN CARRIZALES Admitting Clinician Unavailable Lexi CIFUENTES Admitting Clinician Unavailable Pj Admitting Clinician Payers Payer Name Policy Type Policy Number Effective Expiration Source Date Date [facility] - x[facility] - Medical CAREUNITED MEDICARE Cente r HMOxxxxxxxxx [facility] REVIEWCDC xxxxxxxx [facility] REVIEWxxxxxxxxPO - [facility] [id number] UHC MEDICAREUHC DUAL xxxxxxxxx 2017 [place] COMPLETE 00:00:00 Y[employer]danism MCRxxxxxxxxx1- PresentHMO Problems Condition Condition Condition Status Onset Resolution Last Treating Co mments Source Name Details Category Date Date Treatment Clinician Date Sickle Sickle Disease Active 2018-[address] [facility] cell cell 1-19 [facility] - crisis crisis [place]:[facility]: [facility] 00 [place] Sickle Sickle Disease Active 2018-08 [place] cell cell 0-29 [facility] anemia anemia 00:00: st with with 00 crisis crisis 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 5-13 [facility] - with with 00:00: Medical crisis crisis 00 Center 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 2-12 [facility] - with with 00:00: Medical crisis crisis 00 Center Sickle Sickle Disease Active [facility] cell cell 5-22 [facility] - anemia anemia 00:00: Medical 00 Center SICKLE Diagnosis Active 2016-10-19 Mem oria CELL 1-20 12:43:00 l CRISIS SICKLE 00:00: [place] CELL 00 CRISIS Active 09/08/2014 [facility] Iron Iron Disease Active [facility] overload overload 4-12 [facility] - due to due to 00:00: Medical repeated repeated 00 Center red blood red blood cell cell transfusio transfusio ns ns History of History of Disease Active [facility] drug abuse drug abuse 4-12 Kelley kes - 00:00: Medical 00 [place] Cough Cough Disease Active [facility] 4-11 [facility] - 00:00: Medical 00 Center Final: Problem 2014-09-13 Memor ia 13:02:44 l Final: Roly 09/13/2014 [facility] Aplastic Problem Resolve 2014-09-13 Me moria anemia d 13:02:44 l (disorder) Aplastic He rmann anemia (disorder) Resolved Problem 09/13/2014 [facility] Cerebrovas Problem Resolve 2014-09-13 Memoria cular d 13:02:44 l accident [place] (disorder) Cerebrovas cular accident (disorder) Resolved Problem 09/13/2014 [facility] 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 13:02:44 l opathy [place] disorder 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) Resolved Problem 09/13/2014 [facility] Transient Problem Resolve 2014-09-13 M emoria ischemic d 13:02:44 l attack [place] (disorder) Transient ischemic attack (disorder) Resolved Problem 09/13/2014 [facility] HB-SS Diagnosis Active 2016-10-19 Mem oria DISEASE W 12:43:00 l CRISIS HB-SS [place]oly DISEASE W CRISIS Active [facility] Allergies, Adverse Reactions, Alerts Allergy Allergy Status Severity Reaction(s) Onset Inactive Treating Comm ents Source Name Type Date Date Clinician Dexchlor Drug Active Other (See Unknown [facility] pheniram Allergy Comments) 2-06 reaction Kelley kes - -Phenyle 00:00: and Medical phrine 00 severity Center Fentanyl Drug Active Hives, [facility] Allergy Itching, 2-06 [facility] - Rash 00:00: Medical 00 Center Mirtazap Drug Active Other (See Unknown [facility] ine Allergy Comments) 2-06 reaction Luke s - 00:00: and Medical 00 severity Center from 2017 Morphine Propensi Active Itching 2018-08 [place] to 0-30 [facility] adverse 00:00: st reaction 00 s to drug Dexchlor Propensi Active Unknown 2018-08 [place] pheniram ty to Reaction 0-30 Method i -Phenyle adverse 00:00: st phrine reaction 00 s to drug Tramadol Propensi Active Unknown 2018-08 [place] to Reaction 0-30 [facility]i adverse 00:00: st reaction 00 s to drug Trazodon Propensi Active Unknown 2018-08 [place] ty to Reaction 0-30 Methodi adverse 00:00: st reaction 00 s to drug Fentanyl Propensi Active Seizure 2018- [place] ty to 0-29 [facility]i adverse 00:00: st reaction 00 s to drug Metoclop Propensi Active Seizure 2018- [place] ramide ty to 0-29 [facility] Hcl adverse 00:00: st reaction 00 s to drug Butorpha Propensi Active Seizure 2018- [place] n[place] ty to 0-29 [facility]i Tartrate adverse 00:00: st reaction 00 s to drug Ketorola Propensi Active Seizure 2018- [place] ty to 0-29 [facility]i adverse 00:00: st reaction 00 s to drug Ondanset Propensi Active Seizure 2018- [place] Hcl ty to 0-29 Methodi adverse 00:00: st reaction 00 s to drug Metoclop Propensi Active Other (See Seizures [facility] ramide ty to Comments) 5-13 [facility] - Hcl adverse 00:00: Medical reaction 00 Center s fentanyl DA Active SV 2018- [facility] 4-12 Clear 00:00: [place] 00 [facility] morphine DA Active SV 2018-0 [facility] 4-11 Clear 00:00: [place] 00 [facility] butorpha DA Active U 2018-0 [facility] nol 4-11 Clear 00:00: [place] 00 [facility] metoclop DA Active SV 2018-0 [facility] ramide 4-11 Clear 00:00: [place] 00 [facility] ketorola DA Active SV 2018-0 [facility] c 4-11 Clear 00:00: [place] 00 [facility] TRAZADON DA Active SV [facility] E 4-11 Clear 00:00: [place] 00 [facility] Cpm-Pe-P Propensi Active Other (See seizure [facility] se-Atrop ty to Comments) 2-12 [facility] - ine-Hyos adverse 00:00: Medical c-Scop reaction 00 Center s Trazodon Propensi Active Other (See seizure [facility] e ty to Comments) 2-12 [facility] - adverse 00:00: Medical reaction 00 Center s Tramadol Drug Active Other (See Seizure [facility] Allergy Comments) 7-05 [facility] - 00:00: Medical 00 Center Morphine Drug Active Hives, seizures [facility] Allergy Itching, 4-10 [facility] - Other (See 00:00: Medica l Comments) 00 Center Butorpha Drug Active Other (See seizures [facility] nol Allergy Comments) 4-10 [facility] - Tartrate 00:00: Medical 00 [place] Ketorola Drug Active Other (See seizures [facility] c Allergy Comments) 4-10 [facility] - 00:00: Medical 00 [place] Ondanset Drug Active Other (See seizures [facility] santa Hcl Allergy Comments) 4-10 [facility] - (Pf) 00:00: Medical 00 [place] morphine morphine Active Memori a l [place] Stadol Stadol Active Memoria l [place] Toradol Toradol Active Memoria l [place] traMADol traMADol Active Memori a l [place] Zofran Zofran Active Memoria l [place] Family History Family Member Diagnosis Comments Start Date Stop Date Source Natural father Heart disease [facility] Natural father Heart disease [facility] Natural father Hypertension [facility] Natural mother Hypertension [facility] Social History Social Habit Start Date Stop Date Quantity Comments Source Sex Assigned At [facility] Alcohol Comment 2018-12-30 2018-12-30 very rare [facility] - 00:00:00 00:00:00 [facility] Social History 2014-09-09 2014-09-09 [facility] mone 14:14:38 14:14:38 Smoking Status Start Date Stop Date Source Never smoker [facility] Medications Ordered Filled Start Stop Current Ordering Indication Dosage Frequency Signature Comments Components Source Medication Medication Date Date Medication? Clinician (SIG) Name Name clonazePAM Yes 1mg [id number] Take [address] (KLONOPIN) 09-24 [id number] by mouth 3 [facility] - 1 MG tablet 21:45: 3D (three) Med ical 26 times Center daily. predniSONE 2018-08- No 20mg QD Take [address] (DELTASONE) 09-21 by mouth Alissa es - 20 MG 09:34: 00:00 daily. Medical tablet 56 :00 Center mINOCYCLine 2018-08- No 100mg Q.5D Take [address] (MINOCIN,DY 2-02 12-02 mg by [facility] - NACIN) 100 09:34: 00:00 mouth 2 Med ical MG capsule 56 :00 (two) Center times daily. methocarbam 2018-08- No 750mg Q.25D Take [address] ol 2-02 12-12 tablet [facility] - (ROBAXIN) 00:00: 23:59 (750 mg Medi taryn 750 MG 00 :00 total) by Center tablet mouth 4 (four) times daily for 10 days. mirtazapine 2018-08 Yes 45mg QD Take 45 mg [facility] (REMERON 1-04 by mouth Methodi JAKE-TAB) 15 14:41: nightly. st MG 54 disintegrat ing tablet HYDROcodone 2018-08 Yes acute pain 2{tbl} Q4H Take 2 [facility] -acetaminop 1-04 tablets by Me gus laurent (NORCO) 14:41: mouth st 10-325 mg 54 every 4 per tablet (four) hours as needed for moderate pain .Acute Pain. promethazin 2018-08 Yes 25mg Q.5D Take 25 mg [place] e -04 by mouth 2 [facility]i (PHENERGAN) 14:41: (two) st 25 MG 54 times a tablet day as needed for nausea or vomiting. valsartan 2018-08 Yes 160mg Q.5D Take [address] (DIOVAN) 1-04 mg by Methodi 160 MG 14:41: mouth 2 st tablet 54 (two) times a day. folic acid 2018-08 Yes 1mg QD Take 1 mg [place] (FOLVITE) 1 1-04 by mouth Meth paulino MG tablet 14:41: daily. st 54 ibuprofen 2018-08 Yes 600mg Q6H Take [address] (ADVIL) 600 1-04 mg by Methodi MG tablet 14:41: mouth st 54 every 6 (six) hours as needed for mild pain. triamcinolo 2018-08 Yes Q.5D Apply [place] ne 08-23 topically Methodi (KENALOG) 14:41: 2 (two) st 0.1 % 54 times a ointment day. amLODIPine 2018-08- No 2.5mg Q.5D Take 2.5 [place] (NORVASC) 0-30 10-30 mg by Methodi 2.5 mg 21:17: 00:[address] tablet 17 :00 (two) times a day. oxyMORPHone 2018-08- No 40mg Q12H Take 40 mg [place] (OPANA ER) 0-30 10-30 by mouth Meth paulino 40 MG 12 hr 21:17: 00:00 every 12 s t tablet 17 :00 (twelve) hours. metoprolol 2018-08- No 25mg QD Take 25 mg [place] succinate 0-30 10-30 by mouth Metho di XL 21:17: 00:[address] (TOPROL-XL) 17 :00 25 mg 24 hr tablet metoprolol 2018-08- No 25mg [id number] Take 25 mg [place] tartrate 0-30 10-30 [id number] by mouth 3 [facility] (LOPRESSOR) 21:17: 00:00 3D (three) st 25 mg 17 :00 times a tablet day. hydroxyurea 2018-08- No Q.[id number] Take by [place] (HYDREA) 0-30 10-30 [id number] mouth 3 M ethodi 500 mg 21:17: 00:00 3D (three) st capsule 17 :00 times a day. ALPRAZolam 2018-08- No 2mg Q.5D Take 2 mg [place] (XANAX) 2 0-30 10-30 by mouth 2 Met hodi MG tablet 21:17: 00:00 (two) st 17 :00 times a day as needed for anxiety. triamcinolo Yes a skin rash Apply [facility] ne 5-15 topically [facility] - (KENALOG) 15:43: 3 (three) Med ical 0.1 % 53 times Center lotion daily as needed . promethazin Yes 25mg Take [address] e 5-13 by mouth [facility] - (PHENERGAN) 04:14: every 4 Med ical 25 MG 15 (four) Center tablet hours as needed for Nausea . ibuprofen 2018- No TK [address] [facility] (ADVIL,MOTR - 12-02 Q 8 H WF Alissa es - IN) 600 MG 00:00: 00:00 PRN P. Medi taryn tablet 00 :00 Center promethazin 2019- No 25mg [facility] e 9-15 12- [facility] - (PHENERGAN) 12:30: 09:34 Medic al injection 00 :56 Center 25 mg HYDROcodone Yes pain 2{tbl} Take [address] -acetaminop 1-15 tablets by Kelley laurent (NORCO 14:56: mouth Medica l 10-325) 09 every 4 Center 10-325 mg (four) per tablet hours as needed for Pain. mirtazapine Yes major 45mg QD Take [address] (REMERON) 1-15 depressive by mouth [facility] - 45 MG 14:56: disorder nightly. Medi taryn tablet 09 Center folic acid Yes 1mg QD Take [address] (FOLVITE) 1 5-22 by mouth Luke s - MG tablet 22:46: daily. Medica l 08 Center 12 HR Yes 30 mg = 1 Memoria Oxymorphone 09-11 tab, PO, l Hydrochlori 21:05: Q12H, 0 Her lloyd de 30 MG 00 Refill(s) Extended Release Tablet [Opana] Lovenox No Notes: Memoria 09-11 (Same as: l 01:00: Lovenox) Promethazin No Notes: Do M emoria e 09-10 not give l 23:52: IV push. (Same as: Phenergan) Hydromorpho No Notes: G[place] aileen ne 09-10 (Same as: l 17:00: Dilaudid) conc = 0.5 mg/ml Hydromorph one KNUCKLE BENDER Dose: ;Delay: ;Basal: Naloxone No Notes: Memoria -22 Same as l 16:58: Narcan Naproxen No 500 mg, 1 [place] aileen 09-09 tab, l 23:00: Route: PO, Drug form: TAB, BID, Dosing Weight 68.182, kg, Start date: 09/09/14 17:00:00, Duration: 30 day, Stop date: 10/09/14 9:00:00 Acetaminoph No Notes: Do M emoria en 09-09 not exceed l 18:00: 4 gm/day. (Same as: Tylenol) 08/21 NS 1000 No 1,000 mL, M emoria mL 09-09 Rate: 50 l 16:12: ml/hr, Roly 00 Infuse over: 20 hr, Route: IV, Dosing Weight 68.182 kg, Total Volume: 1,000, Start date: 09/09/14 10:12:00, Duration: 30 day, Stop date: 10/09/14 10:11:00 Oxycodone No Notes: Memori a Hydrochlori 09-09 (Same as: l de 5 MG 16:10: Roxicodone Herm robbin Oral Tablet ) Opana ER No Notes: Memoria 09-09 Same as: l 16:00: Opana ER oxyMORPHone No 30 mg, [place] aileen extended 09-09 Route: PO, l release 15:00: Q12H, [place] 00 Dosing Weight 70, kg, Start date: 09/09/14 9:00:00, Duration: 30 day, Stop date: 10/08/14 21:00:00 Docusate No Notes: Memoria 09-09 (Same as: l 15:00: Colace) (Do Not Crush) Dilaudid No Notes: Memoria 09-09 Same as: l 11:14: Dilaudid Roly normal No 1,000 mL, Memori a saline 0.9% 09-09 Rate: 125 l IV 1,000 mL 11:13: ml/hr, Infuse over: 8 hr, Route: IV, Dosing Weight 70 kg, Total Volume: 1,000, Priority: STAT, Start date: 09/09/14 5:13:00, Duration: 1 doses or times, Stop date: 09/09/14 13:12:00 Ondansetron No 4 mg, Memor ia 09-09 Route: l 11:11: IVP, Q8H, Roly 00 Dosing Weight 70, kg, PRN Nausea & Vomiting, Start date: 09/09/14 5:11:00, Duration: 30 day, Stop date: 10/09/14 5:10:00 Acetaminoph No 1 tab, Gentry aileen en 325 MG / 09-09 Route: PO, l Hydrocodone 11:11: Drug Form: [place] Bitartrate 00 TAB, 5 MG Oral Dosing Tablet Weight 70, kg, Q4H, PRN Pain Score 1-3, Start date: 09/09/14 5:11:00, Duration: 30 day, Stop date: 10/09/14 5:10:00 Sodium 2014-0 No 1,000 mL, Memori a Chloride 09-09 1000 l 0.154 11:08: ml/hr, Roly MEQ/ML 00 Infuse Injectable Over: 1 Solution hr, Route: IV, 1,000, Drug form: INJ, ONCE, Priority: STAT, Dosing Weight 70 kg, Start date: 09/09/14 5:08:00, Duration: 1 doses or times, Stop date: 09/09/14 5:08:00 Dilaudid 2014-0 No Notes: Memoria 09-09 Same as: l 11:02: Dilaudid Roly 00 Phenergan 0 No Notes: Do Mem oria 09-09 not give l 11:02: IV push. Roly (Same as: Phenergan) Benadryl 0 No 25 mg, Memoria 09-09 Route: PO, l 09:43: Drug form: [place] 00 CAP, ONCE, Dosing Weight 70, kg, Priority: STAT, Start date: 09/09/14 3:43:00, Stop date: 09/09/14 3:43:00 Dilaudid 2014-0 No 2 mg, Memoria 09-09 Route: IV, l 09:43: ONCE, Roly 00 Dosing Weight 70, kg, Start date: 09/09/14 3:43:00, Stop date: 09/09/14 3:43:00 Diphenhydra 2014-0 No 1 appl, Mem oria mine 09-09 Route: l Hydrochlori 09:43: TOP, ONCE, Roly de 20 MG/ML 00 Drug form: Topical CRM, Start Cream date: [Benadryl] 09/09/14 3:43:00, Stop date: 09/09/14 3:43:00 Phenergan 2014-0 No 12.5 mg, Gentry aileen 09-09 Route: l 08:13: IVPB, Roly 00 ONCE, Dosing Weight 70, kg, Priority: STAT, Start date: 09/09/14 2:13:00, Stop date: 09/09/14 2:13:00 Dilaudid 2014-0 No 2 mg, Memoria 09-09 Route: IV, l 08:13: ONCE, Dosing Weight 70, kg, Start date: 09/09/14 2:13:00, Stop date: 09/09/14 2:13:00 Benadryl 2014-0 No 25 mg, Memoria 09-09 Route: PO, l 05:41: ONCE, Dosing Weight 70, kg, Start date: 09/08/14 23:41:00, Stop date: 09/08/14 23:41:00 Phenergan 2015-0 No 25 mg, Memori a 09-09 Route: PO, l 05:41: ONCE, Dosing Weight 70, kg, Priority: STAT, Start date: 09/08/14 23:41:00, Stop date: 09/08/14 23:41:00 Hydromorpho 2015-0 No 2 mg, Memor ia ne 09-09 Route: l 05:41: IVP, ONCE, Dosing Weight 70, kg, Priority: STAT, Start date: 09/08/14 23:41:00, Stop date: 09/08/14 23:41:00 Saline 2014-0 No Notes: Memoria Flush 0.9% 09-09 Same as: l 05:41: BD Posiflush Sterile Vital Signs Vital Name Observation Time Observation Value Comments Source Heart rate 2019-12-28 13:15:00 73 /min [facility] Oxygen saturation in 2019-12-28 13:15:00 100 /min [facility] Arterial blood by Medical Ce nter Pulse oximetry Systolic blood 2019-12-28 12:26:00 137 mm[Hg] [facility] Diastolic blood 2019-12-28 12:26:00 84 mm[Hg] [facility] Body temperature 2019-12-28 12:26:00 36.33 Khadijah [facility] Respiratory rate 2019-12-28 12:26:00 18 /min [facility] Body weight Measured 2019-12-28 06:00:00 77.474 kg [facility] BMI 2019-12-28 06:00:00 30.26 kg/m2 [facility] Body height 2019-12-26 06:00:00 160 cm [facility] Oxygen saturation in 2019-06-23 13:08:00 98 /min [place] [facility] Arterial blood by Pulse oximetry Systolic blood 2019-06-23 11:56:20 126 mm[Hg] [place] pressure Diastolic blood 2019-06-23 11:56:20 87 mm[Hg] [place] pressure Heart rate 2019-06-23 11:56:20 85 /min [facility] Body temperature 2019-06-23 11:56:20 36.72 Khadijah [place] [facility] Respiratory rate 2019-06-23 11:56:20 19 /min [place] [facility] Body weight 2019-06-23 03:08:38 76.658 kg [facility] BMI 2019-06-23 03:08:38 29.94 kg/m2 [facility] Body height 2019-06-17 20:13:00 160 cm [facility] Respitory Rate 2014-09-12 02:32:00 Memori al Roly Systolic (mm Hg) 2014-09-12 02:32:00 Gentry rial [place] Heart Rate 2014-09-12 02:32:00 [facility] Roly Diastolic (mm Hg) 2014-09-12 02:32:00 Mem orial [place] Temperature Oral (F) 2014-09-12 02:32:00 98.0 F [facility]oly Diastolic (mm Hg) 2014-09-11 23:07:00 Mem orial Roly Respitory Rate 2014-09-11 23:07:00 Memori al [place] Systolic (mm Hg) 2014-09-11 23:07:00 Gentry rial Roly Heart Rate 2014-09-11 23:07:00 [facility] [place] Temperature Oral (F) 2014-09-11 23:07:00 98.4 F [facility] [place] Respitory Rate 2014-09-11 15:22:00 Memori al Roly Heart Rate 2014-09-11 15:22:00 [facility] [place] Systolic (mm Hg) 2014-09-11 15:22:00 Gentry rial Roly Diastolic (mm Hg) 2014-09-11 15:22:00 Mem orial Roly Temperature Oral (F) 2014-09-11 15:22:00 98.1 F [facility] Weight 2014-09-10 14:38:00 [facility] Weight 2014-09-09 14:02:00 [facility] Calculated 2014-09-09 14:02:00 Berna Garciaann Height 2014-09-09 14:02:00 160.02 cm [facility] Weight 2014-09-09 02:51:00 [facility] Height 2014-09-09 02:51:00 160.02 cm [facility] BMI Calculated 2014-09-09 02:51:00 Berna lamas [place] Procedures Procedure Date / Time Performing Clinician Source Performed RHYTHM STRIP - SCAN 2019-12-30 12:00:10 Provider, [facility] BASIC METABOLIC PANEL (7) 2019-12-28 04:29:00 Rufus [facility] MAGNESIUM 2019-12-28 04:29:00 Rufus [facility] CBC W/PLT COUNT & AUTO 2019-12-28 04:29:00 [facility] (CELLAVISION MANUAL DIFF) 2019-12-28 04:29:00 Rufus [facility] TRANSFUSION SERVICE 2019-12-27 17:51:12 Provider, [facility] REPORT SCAN [facility] BASIC METABOLIC PANEL (7) 2019-12-27 06:49:00 Rufus [facility] MAGNESIUM 2019-12-27 06:49:00 Rufus [facility] CBC W/PLT COUNT & AUTO 2019-12-27 06:49:00 [facility] (CELLAVISION MANUAL DIFF) 2019-12-27 06:49:00 Rufus [facility] VANCOMYCIN LEVEL, TROUGH 2019-12-26 08:19:00 Rufus [facility] PREPARE RBC 2019-12-26 04:32:00 [facility] BASIC METABOLIC PANEL (7) 2019-12-26 04:02:00 [facility] 2019-12-26 04:02[facility] AUTO 2019-12-26 04:02:00 [facility] (CELLAVISION MANUAL DIFF) 2019-12-26 04:02:00 [facility]IC METABOLIC PANEL (7) 2019-12-25 04:10:00 [facility] 2019-12-25 04:10:00 Rufus [facility] HEPATIC FUNCTION PANEL 2019-12-25 04:10:00 Rufus, [facility] PHOSPHORUS 2019-12-25 04:10:00 NilesJill [facility] CBC W/PLT COUNT & AUTO 2019-12-25 04:10:00 Rufus, [facility] (CELLAVISION MANUAL DIFF) 2019-12-25 04:10:00 Rufus [facility] TRANSFUSION SERVICE 2019-12-24 20:11:02 Provider, [facility] BASIC METABOLIC PANEL (7) 2019-12-24 04:48:00 [facility] 2019-12-24 04:48:00 Rufus [facility] HEPATIC FUNCTION PANEL 2019-12-24 04:48:00 Rufus [facility] PHOSPHORUS 2019-12-24 04:48:00 NilesJill [facility] CBC W/PLT COUNT & AUTO 2019-12-24 04:48:00 [facility] (CELLAVISION MANUAL DIFF) 2019-12-24 04:48:00 Rufus [facility] PREPARE LEUKO-REDUCED RBC 2019-12-23 23:54:00 Rufus [facility] VANCOMYCIN LEVEL, TROUGH 2019-12-23 20:02:00 Joann Cobb [facility] TRANSFUSION SERVICE 2019-12-23 18:00:47 Provider, Lise [facility] REPORT SCAN [facility] CBC W/PLT COUNT & AUTO 2019-12-23 15:52:00 Lamont Paradaham [facility] HEMOGLOBIN AND HEMATOCRIT 2019-12-23 07:50:00 [facility] HEMOGLOBIN AND HEMATOCRIT 2019-12-23 02:20:00 [facility] BASIC METABOLIC PANEL (7) 2019-12-23 02:20:00 [facility] MAGNESIUM 2019-12-23 02:20:00 [facility] HEPATIC FUNCTION PANEL 2019-12-23 02:20:00 [facility] PHOSPHORUS 2019-12-23 02:20:00 Jill Cage [facility] CBC W/PLT COUNT & AUTO 2019-12-23 02:20:00 [facility] (CELLAVISION MANUAL DIFF) 2019-12-23 02:20:00 [facility] TRANSFUSE LEUKO-REDUCED 2019-12-23 01:08:19 N[facility] RED BLOOD [facility] TROPONIN I 2019-12-22 21:21:00 David Santos [facility] HEMOGLOBIN AND HEMATOCRIT 2019-12-22 19:08:00 [facility] TRANSFUSE LEUKO-REDUCED 2019-12-22 18:14:05 [facility] RED BLOOD CELLS [facility] TRANSFUSE LEUKO-REDUCED 2019-12-22 16:49:12 [facility] RED BLOOD CELLS [facility] OSMOLALITY, URINE 2019-12-22 16:33:00 [facility] SODIUM, RANDOM URINE 2019-12-22 16:33:00 [facility] CREATININE, RANDOM URINE 2019-12-22 16:33:00 Rufus, [facility] PROTEIN, RANDOM URINE 2019-12-22 16:33:00 Rufus, [facility] POTASSIUM, RANDOM URINE 2019-12-22 16:33:00 Rufus, [facility] ANTIBODY IDENTIFICATION 2019-12-22 15:56:00 Rufus, [facility] ECG 12-LEAD 2019-12-22 15:35:34 Unknown, Hl7 [facility] TROPONIN I 2019-12-22 14:02:00 David Santos [facility] BLOOD CULTURE 2019-12-22 14:01:00 Rufus [facility] US ABDOMEN LIMITED 2019-12-22 13:50:00 David Santos [facility] URINE CULTURE 2019-12-22 11:12:00 Rufus [facility] DRUG SCREEN, URINE, 2019-12-22 11:12:00 Rufus, [facility] LEGIONELLA URINE ANTIGEN 2019-12-22 11:12:00 [facility] URINALYSIS W/ REFLEX 2019-12-22 11:12:00 [facility] RESPIRATORY PANEL [facility] 2019-12-22 10:57:00 Rufus, [facility] RAPID INFLUENZA A&B 2019-12-22 10:57:00 Rufus, [facility] MRSA SCREEN 2019-12-22 10:57:00 [facility] XR CHEST 1 VIEW 2019-12-22 09:06:00 Rufus, [facility]/BEDSIDE [facility] [place] PROTHROMBIN TIME/INR 2019-12-22 08:08:[facility] 2019-12-22 08:08[facility] FIBRIN[facility]EN 2019-12-22 08:08:00 [facility] BLOOD CULTURE 2019-12-22 08:07:00 [facility] HEMOGLOBIN AND HEMATOCRIT 2019-12-22 08:07:00 [facility] COMPREHENSIVE METABOLIC 2019-12-22 08:07:00 [facility] MAGNESIUM 2019-12-22 08:07:00 [facility] IRON, TIBC, % SAT. 2019-12-22 08:07:00 [facility] (WITHOUT FERRITIN) [facility] r FERRITIN 2019-12-22 08:07:00 [facility] LACTATE DEHYDROGENASE 2019-12-22 08:07:00 [facility] ([facility]H) [facility] RETICULOCYTE COUNT 2019-12-22 08:07:00 [facility] HAPTOGLOBIN 2019-12-22 08:07:00 [facility] VITAMIN B12 AND FOLATE 2019-12-22 08:07:00 [facility] TROPONIN I 2019-12-22 08:07:00 [facility] AMYLASE 2019-12-22 08:07:00 [facility] LIPASE 2019-12-22 08:07:00 [facility] LACTIC ACID, VENOUS 2019-12-22 08:07:00 [facility] PROCALCITONIN 2019-12-22 08:07:00 [facility] CORTISOL 2019-12-22 08:07:00 [facility] TSH/FREE T4 IF INDICATED 2019-12-22 08:07:00 [facility] T4, FREE 2019-12-22 08:07:00 [facility] BILIRUBIN, DIRECT 2019-12-22 08:07:00 David Santos [facility] BILIRUBIN, INDIRECT 2019-12-22 08:07:00 [facility] TYPE AND SCREEN, 2019-12-22 08:07:00 Rufus Ny [facility] AUTOMATED [facility] CBC W/PLT COUNT & AUTO 2019-12-22 08:07:00 Jefry Serrano [facility] (CELLAVISION MANUAL DIFF) 2019-12-22 08:07:00 Jefry Serrano [facility] ECG 12-LEAD 2019-12-22 06:57:18 Unknown, [facility] SARS-COV2/RT-PCR ([facility] & 2019-12-22 04:10:00 [facility] REF LABS) Medical Center REPORT OF PROCEDURE - 2019-10-02 10:52:51 Provider, Default [facility] ENDOSCOPY SCAN Scanning [facility] CBC W/PLT COUNT & AUTO 2019-09-30 04:19:00 Neal [facility] (CELLAVISION MANUAL DIFF) 2019-09-30 04:19:[address] [facility] CBC W/PLT COUNT & AUTO 2019-09-29 06:48:00 [facility] (CELLAVISION MANUAL DIFF) 2019-09-29 06:48:[address] [facility] VANCOMYCIN LEVEL, TROUGH 2019-09-28 11:47:00 Angela Iraheta [facility] CBC W/PLT COUNT & AUTO 2019-09-28 05:01:00 [facility] (CELLAVISION MANUAL DIFF) 2019-09-28 05:01:00 [facility] TRANSFUSION SERVICE 2019-09-27 17:51:16 Provider, Default [facility] REPORT - SCAN Scanning [facility] BASIC METABOLIC PANEL (7) 2019-09-27 04:54:[address] [facility] CBC W/PLT COUNT & AUTO 2019-09-27 04:54:00 [facility] (CELLAVISION MANUAL DIFF) 2019-09-27 04:54:00 [facility] PREPARE LEUKO-REDUCED RBC 2019-09-26 23:54:00 [facility], [facility] CBC W/PLT COUNT & AUTO 2019-09-26 07:42:00 [facility], [facility] (CELLAVISION MANUAL DIFF) 2019-09-26 07:42:00 [facility], [facility] BASIC METABOLIC PANEL (7) 2019-09-26 05:51:00 [facility] TRANSFUSE LEUKO-REDUCED 2019-09-25 18:34:30 [facility] RED BLOOD CELLS [facility] TRANSFUSION SERVICE 2019-09-25 18:01:51 Provider [facility] REPORT - SCAN Scanning [facility] CATHETER TIP CULTURE 2019-09-25 11:21:00 [facility], [facility] IR PORT REMOVAL 2019-09-25 11:20:00 [facility], [facility] BASIC METABOLIC PANEL (7) 2019-09-25 09:23:00 [facility], [facility] CBC W/PLT COUNT & AUTO 2019-09-25 09:23:00 [facility] (CELLAVISION MANUAL DIFF) 2019-09-25 09:23:00 [facility], [facility] PT/APTT 2019-09-25 05:14:00 [facility], [facility] SCREEN, URINE 2019-09-24 22:59:00 [facility], [facility] ANTIBODY IDENTIFICATION 2019-09-24 18:22:00 [facility], [facility] CBC W/PLT COUNT & AUTO 2019-09-24 08:36:00 [facility], [facility] (CELLAVISION MANUAL DIFF) 2019-09-24 08:36:00 Lise serrano [facility] TYPE AND SCREEN, 2019-09-24 05:11:[address] [facility] s AUTOMATED [facility] TRANSFUSION SERVICE 2019-07-22 17:54:59 Provider, [facility] REPORT - SCAN [facility] RHYTHM STRIP - SCAN 2019-07-22 15:13:47 Provider, [facility] RHYTHM STRIP - SCAN 2019-07-22 15:13:45 Provider, [facility] RHYTHM STRIP - SCAN 2019-07-22 15:13:36 Provider, [facility] PREPARE LEUKO-REDUCED RBC 2019-07-21 23:54:00 [facility] TRANSFUSION SERVICE 2019-07-21 17:51:43 Provider, [facility] REPORT [facility] ANTIBODY IDENTIFICATION 2019-07-21 17:30:00 [facility] TRANSFUSION SERVICE 2019-07-20 17:51:45 Provider, [facility] RETICULOCYTE COUNT 2019-07-20 09:31:00 [facility] CBC W/PLT COUNT & AUTO 2019-07-20 09:31:00 [facility] (MANUAL DIFFERENTIAL) 2019-07-20 09:31:00 [facility] TRANSFUSE LEUKO-REDUCED 2019-07-20 06:07:37 [facility] RED BLOOD CELLS [facility] PREPARE LEUKO-REDUCED RBC 2019-07-19 22:31:00 [facility] ABORH, MANUAL 2019-07-19 10:34:00 [facility] RETICULOCYTE COUNT 2019-07-19 06:11:00 [facility] CBC W/PLT COUNT & AUTO 2019-07-19 06:11:00 [facility] (MANUAL DIFFERENTIAL) 2019-07-19 06:11:00 [facility] CBC W/PLT COUNT & AUTO 2019-07-18 04:38:00 [facility] (MANUAL DIFFERENTIAL) 2019-07-18 04:38:00 [facility] BASIC METABOLIC PANEL (7) 2019-07-17 05:15:00 Bautista Swain [facility] CBC W/PLT COUNT & AUTO 2019-07-17 05:15:00 Bautista Swain [facility] (MANUAL DIFFERENTIAL) 2019-07-17 05:15:00 Bautista Swain [facility] BASIC METABOLIC PANEL (7) 2019-07-16 05:40:00 Bautista Swain [facility] CBC W/PLT COUNT & AUTO 2019-07-16 05:40:00 Bautista Swain [facility] (MANUAL DIFFERENTIAL) 2019-07-16 05:40:00 Bautista Swain [facility] BASIC METABOLIC PANEL (7) 2019-07-15 05:07:00 Bautista Swain [facility] FERRITIN 2019-07-15 05:07:00 [facility] RETICULOCYTE COUNT 2019-07-15 05:07:00 [facility] CBC W/PLT COUNT & AUTO 2019-07-15 05:07:00 Bautista Swain [facility] (MANUAL DIFFERENTIAL) 2019-07-15 05:07:00 Bautista Swain [facility] REPORT OF PROCEDURE - 2019-07-14 09:51:53 Provider [facility] ENDOSCOPY SCAN Scanning [facility] IMMATURE RETICULOCYTE 2019-07-14 05:07:00 Bautista Swain [facility] BASIC METABOLIC PANEL (7) 2019-07-14 05:07:00 Yelitza Morocho [facility] CBC W/PLT COUNT & AUTO 2019-07-14 05:07:00 Bautista Swain [facility] DIFFERENTIAL [facility] (MANUAL DIFFERENTIAL) 2019-07-14 05:07:00 Bautista Swain [facility] TRANSFUSION SERVICE 2019-07-13 18:02:43 Provider, Default [facility] REPORT - SCAN [facility] IMMATURE RETICULOCYTE 2019-07-13 03:30:00 Bautista Swain [facility] - FRACTION [facility] BASIC METABOLIC PANEL (7) 2019-07-13 03:30:00 Yelitza Morocho [facility] CBC W/PLT COUNT & AUTO 2019-07-13 03:30:00 Bautista Swain [facility] DIFFERENTIAL [facility] (MANUAL DIFFERENTIAL) 2019-07-13 03:30:00 Bautista Swain [facility] PREPARE LEUKO-REDUCED AND 2019-07-12 23:55:00 Radha Sotomayor [facility] IRRADIATED RBC [facility] TRANSFUSION SERVICE 2019-07-12 18:05:44 Provider, Default [facility] CBC W/PLT COUNT & AUTO 2019-07-12 05:49:00 Radha Sotomayor [facility] (MANUAL DIFFERENTIAL) 2019-07-12 05:49:00 Radha Sotomayor [facility] PREPARE LEUKO-REDUCED AND 2019-07-11 23:54:00 Radha Sotomayor [facility] IRRADIATED RBC [facility] TRANSFUSE LEUKO-REDUCED 2019-07-11 19:00:35 Radha Sotomayor [facility] RED BLOOD CELLS [facility] TRANSFUSION SERVICE 2019-07-11 18:06:07 Provider, [facility] BASIC METABOLIC PANEL (7) 2019-07-11 04:21:00 Radha Sotomayor [facility] CBC W/PLT COUNT & AUTO 2019-07-11 04:21:00 Radha Sotomayor [facility] (MANUAL DIFFERENTIAL) 2019-07-11 04:21:00 Radha Sotomayor [facility] TRANSFUSION SERVICE 2019-07-10 17:56:35 Provider, Default [facility] REPORT - SCAN Scanning [facility] ANTIBODY IDENTIFICATION 2019-07-10 16:13:00 Radha Sotomayor [facility] CBC W/PLT COUNT & AUTO 2019-07-10 07:14:00 Radha Sotomayor [facility] (MANUAL DIFFERENTIAL) 2019-07-10 07:14:00 Radha Sotomayor [facility] BASIC METABOLIC PANEL (7) 2019-07-10 07:13:00 [facility] LE[facility]KO-[facility]UCED 2019-07-10 05:46:43 Radha Sotomayor [facility] AND IRRADIATED RED BLOOD [facility] CELLS ABORH, MANUAL 2019-07-09 15:32:00 Radha Sotomayor [facility] CBC W/PLT COUNT & AUTO 2019-07-09 11:14:00 Radha Sotomayor [facility] POTASSIUM 2019-07-09 04:58:00 Emile, [facility] BASIC METABOLIC PANEL (7) 2019-07-09 04:57:00 Emile, [facility] MAGNESIUM 2019-07-09 04:57:00 Emile, [facility] CRITICAL CARE 2019-07-09 00:11:29 Emile, [facility] ED ECG INTERPRETATION 2019-07-09 00:11:29 Emile, [facility] BLOOD CULTURE 2019-07-08 20:58:00 Emile, [facility] XR CHEST 1 VIEW 2019-07-08 19:41:00 Emile, [facility]/BEDSIDE [facility] URINALYSIS W/ MICROSCOPIC 2019-07-08 19:16:00 Emile, [facility] SCREEN, URINE 2019-07-08 19:16:00 Emile, Will [facility] BASIC METABOLIC PANEL (7) 2019-07-08 18:44:00 Emile, Will [facility] TROPONIN I 2019-07-08 18:44:00 Emile, Will [facility] RETICULOCYTE COUNT 2019-07-08 18:44:00 Emile, Will [facility] MAGNESIUM 2019-07-08 18:44:00 Emile, Will [facility] CBC W/PLT COUNT & AUTO 2019-07-08 18:44:00 Emile, Will [facility] (MANUAL DIFFERENTIAL) 2019-07-08 18:44:00 Emile, Will [facility] BASIC METABOLIC PANEL 2019-06-23 06:12:00 Brigida Adhikari on Yazdanism [place] CBC WITH PLATELET AND 2019-06-23 06:12:00 Brigida Adhikari on Yazdanism DIFFERENTIAL [place] ESTIMATED GFR 2019-06-23 06:12:00 Manny Ambriz [facility] MANUAL DIFFERENTIAL 2019-06-23 06:12:00 Manny Ambriz n Y[facility]ism HC COMPLETE BLD COUNT 2019-06-22 06:10:00 Manny Ambriz Y[facility]danism W/AUTO DIFF SMEAR REVIEW 2019-06-22 06:10:00 Manny Ambriz Ia thodist HC COMPLETE BLD COUNT 2019-06-21 05:30:00 Manny Ambriz Y[facility]danism W/AUTO DIFF BASIC METABOLIC PANEL 2019-06-21 05:30:00 Manny Ambriz Y[facility]ism MAGNESIUM LEVEL 2019-06-21 05:30:00 Manny Ambriz Ia [facility] ESTIMATED GFR 2019-06-21 05:30:00 Manny Ambriz Me [facility]odist SMEAR REVIEW 2019-06-21 05:30:00 Manny Ambriz [facility] BASIC METABOLIC PANEL 2019-06-20 06:00:00 Brigida Adhikari on Yazdanism [facility] HC COMPLETE BLD COUNT 2019-06-20 06:00:00 Brigida Adhikari on Yazdanism W/AUTO DIFF Shabana ESTIMATED GFR 2019-06-20 06:00:00 PbManny jarrell [facility] SMEAR REVIEW 2019-06-20 06:00:00 PbManny jarrell [facility] POC GLUCOSE 2019-06-19 20:54:00 PbManny jarrell [facility] POC GLUCOSE 2019-06-19 17:26:00 PbManny jarrell [facility] POC GLUCOSE 2019-06-19 11:37:00 PbManny jarrell [facility] POC GLUCOSE 2019-06-19 06:37:00 PbManny [facility] US ABDOMEN COMPLETE 2019-06-19 06:15:00 Melissa Hernandez BASIC METABOLIC PANEL 2019-06-19 05:48:00 Brigida Adhikari on Yazdanism [place] CBC WITH PLATELET AND 2019-06-19 05:48:00 Brigida Adhikari on Yazdanism DIFFERENTIAL Sh[place]ana IONIZED CALCIUM 2019-06-19 05:48:00 Charlee Norton Yazdanism MAGNESIUM LEVEL 2019-06-19 05:48:00 Charlee Norton Yazdanism ESTIMATED GFR 2019-06-19 05:48:00 Brigida Adhikari Met hodorin Donald MANUAL DIFFERENTIAL 2019-06-19 05:48:00 Manny Ambriz Y[facility]ism HEMOGLOBIN & HEMATOCRIT 2019-06-18 17:40:00 Melissa Hernandezist SMEAR REVIEW 2019-06-18 17:40:00 Melissa Hernandez TRANSFUSE RED BLOOD CELLS 2019-06-18 17:32:55 Brigida Adhikari TRANSFUSE RED BLOOD CELLS 2019-06-18 14:04:38 Brigida Adhikari XR SHOULDER 2+ VW RIGHT 2019-06-18 12:57:01 Melissa Hernandez BASIC METABOLIC PANEL 2019-06-18 05:10:00 ElevazoBrigida on [facility] [place] CBC WITH PLATELET AND 2019-06-18 05:10:00 Elevazo, Brigida Peterst on Yazdanism DIFFERENTIAL [place] TROPONIN 2019-06-18 05:10:00 Cierra, Charlee [place] [facility] IONIZED CALCIUM 2019-06-18 05:10:00 Cierra, Charlee Maghin[place] [facility] MAGNESIUM LEVEL 2019-06-18 05:10:00 Cierra, Charlee Maghin[place] [facility] ESTIMATED GFR 2019-06-18 05:10:00 Cierra, Charleedarrius Baxternawesly [place] MANUAL DIFFERENTIAL 2019-06-18 05:10:00 Charlee Nortonton Yazdanism POC GLUCOSE 2019-06-18 04:52:00 Manny Ambriz [facility] POTASSIUM LEVEL 2019-06-18 01:10:00 Charlee Nortonto n Yazdanism POC GLUCOSE 2019-06-18 01:08:00 Manny Ambriz [facility] BLOOD CULTURE, AEROBIC & 2019-06-17 23:30:00 ElevazoBrigidaton Yazdanism ANAEROBIC Shabana TYPE AND SCREEN 2019-06-17 22:30:00 Elevkwabena Brigida [facility] [place] CBC WITH PLATELET AND 2019-06-17 22:30:00 ElevBrigida yuan on Yazdanism DIFFERENTIAL [place] MAGNESIUM LEVEL 2019-06-17 22:30:00 Elevkwabena Brigida [facility] [place] PHOSPHORUS LEVEL 2019-06-17 22:30:00 Elevazo Brigida [facility] [place] COMPREHENSIVE METABOLIC 2019-06-17 22:30:00 Elevazo Brigida Alexandro lanen Yazdanism PANEL Shabana ESTIMATED GFR 2019-06-17 22:30:00 Manny Ambriz [facility] TROPONIN 2019-06-17 22:30:00 CierraCharlee [place] LACTIC ACID LEVEL 2019-06-17 22:30:00 Cierra, Charlee hinawesly [place] MANUAL DIFFERENTIAL 2019-06-17 22:30:00 Manny Ambriz Y[facility]ism ANTIBODY IDENTIFICATION 2019-06-17 22:30:00 Pb Manny sesayosiris Yazdanism C ANTIGEN PATIENT TYPING 2019-06-17 22:30:00 Pb Manny Knight (LITTLE C) C ANTIGEN PATIENT TYPING 2019-06-17 22:30:00 Manny Ambriz KENYA ANTIGEN PATIENT 2019-06-17 22:30:00 Manny Ambriz on Yazdanism TYPING E ANTIGEN PATIENT TYPING 2019-06-17 22:30:00 Manny Ambriz E ANTIGEN PATIENT TYPING 2019-06-17 22:30:00 Manny Ambriz (LITTLE E) DIRECT AREN' (MEGHAN) 2019-06-17 22:30:00 Manny Ambriz on Yazdanism POSITIVE MEGHAN REFLEX WITH 2019-06-17 22:30:00 Manny Ambriz SALINE ELUTION 2019-06-17 22:30:00 Manny Ambriz [facility] PREPARE RBC 2019-06-17 22:30:00 Brigida Adhikari Met coby Donald GENERAL 2019-06-17 22:10:00 Charlee Norton URINE CULTURE 2019-06-17 21:40:00 Brigida Adhikari Met coby Donald URINALYSIS SCREEN AND 2019-06-17 21:40:00 Brigida Adhikari MICROSCOPY, WITH REFLEX Shabana TO CULTURE ECG 12-LEAD 2019-06-17 20:54:46 Charlee Norton XR CHEST 1 VW PORTABLE 2019-06-17 20:42:25 Charlee Norton Plan of Care Planned Activity Planned Date Details Comments Source Future Scheduled 2020-04-[address] [facility] - Test 00:00:00 (Season Ended) [code = Medic al Center INFLUENZA VACCINE (Season Ended)] Future Scheduled 2020-03-20 INFLUENZA VACCINE [facility] Test 00:00:00 [code = INFLUENZA VACCINE] Future Scheduled 2018-08-[address] [facility] Test 00:00:00 WELLNESS (YEAR 2 or Medical Center FIRST YEAR if no IPPE) [code = MEDICARE ANNUAL WELLNESS (YEAR 2 or FIRST YEAR if no IPPE)] Future Scheduled 2000 Screening for [facility] Test 00:00:00 malignant neoplasm of cervix (procedure) [code = 824801007] Future Scheduled [address] [facility] Test 00:00:00 malignant neoplasm of Medica l Center cervix (procedure) [code = 962485512] Future Scheduled [address] [facility] - Test 00:00:00 2-64 YEARS AT RISK (1 Medica l Center of 3 - PCV13) [code = PNEUMOCOCCAL VACCINE 2-64 YEARS AT RISK (1 of 3 - PCV13)] Encounters Start End Encounter Admission Attending Care Care Encounter Source Date/Time Date/Time Type Type Clinicians Facility Department ID 2020-02-02 2020-02-02 [facility] [id number] 00:00:00 00:00:00 [facility] [id number] [place] [id number] Professio [phone] [address] 2020-01-30 2020-01-30 [facility] [id number] 00:00:00 00:00:00 [facility] [id number] [place] [id number] Professio [phone] [address] 2020-01-29 2020-01-29 [facility] [id number] 00:00:00 00:00:00 [facility] [id number] [place] [id number] Professio [phone] [address] 2020-01-26 2020-01-26 Office [id number] 11:44:47 12:44:03 Visit [facility] [id number] [place] [id number] Professio [phone] [facility] 044 Building 2014-09-08 2014-09-11 Outpatient RUSS Oliva HOLLI [id number] 20:44:00 21:40:00 Josiane 00 Results Test Description Test Time Test Comments Results Result Comments Source CBC with platelet count + automated diff 2019-12-28 11:17:00 Test Item Value Reference Range Interpretation Comme nts WBC (test code = 6690-2) 19.1 3.5- 10.5 K/L H RBC (test code = 789-8) 2.02 3.93- 5.22 M/L L MCHC (test code = 786-4) 31.9 32.2- 35.5 GM/DL L Hematocrit (test code = 4544-3) 20.7 % 34.1-44.9 L MCV (test code = 787-2) 102.5 fL 79.4-94.8 H MCH (test code = 785-6) 32.7 pg 25.6-32.2 H RDW (test code = 788-0) 18.4 % 11.7-14.4 H Platelets (test code = 777-3) 364 150- 450 K/CU MM MPV (test code = 69568-7) 10.7 fL 9.4-12.3 nRBC (test code = 413) 3 0- 0 /100 WBC H Lab Interpretation (test code = 01287-3) [id number] 11:17:00 Test Item Value Reference Range Interpretation Comments % Neutros (test code = 61 % 2816) % Lymphs (test code = 23 % 2817) % Monos (test code = 11 % 2818) % Eos (test code = 2819) 3 % % Baso (test code = 2820) 2 % # Neutros (test code = 11.65 K/ul 1.56-6.13 H 2830) # Lymphs (test code = 4.39 K/ul 1.18-3.74 H 2831) # Monos (test code = 2.10 K/uL 0.24-0.36 H 2832) # Eos (test code = 2834) 0.57 K/uL 0.04-0.36 H # Baso (test code = 2835) 0.38 K/uL 0.01-0.08 H Total Counted (test code 100 = 1351) nRBC (manual) (test code 7 0- 0 /100 WBC H = 1353) Smudge Cells (test code = Present 1371) Giant Platelet (test code Present = 313) Polychromasia (test code 1+ few = 478) Anisocytosis (test code = 2+ moderate 961) Poikilocytes (test code = 1+ few 966) Target Cells (test code = 1+ few 480) Sickle Cells (test code = 1+ few 767) Artifact (test code = Present 3432) Platelet Conc (test code Adequate = 3438) NOLAN (test code = NOLAN) Transmission Superintendent ID - Flavia Neil comments: Slide comments: Lab Interpretation (test Abnormal code = 51850-8) [facility] W/PLT COUNT & AUTO [id number] 11:17:00 Test Item Value Reference Range Interpretation Comments WHITE BLOOD CELL COUNT (BEAKER) 19.1 K/ L 3.5-10.5 H (test code = 775) RED BLOOD CELL COUNT (BEAKER) 2.02 M/ L 3.93-5.22 L (test code = 761) HEMOGLOBIN (BEAKER) (test code = 6.6 GM/DL 11.2-15.7 L 410) HEMATOCRIT (BEAKER) (test code = 20.7 % 34.1-44.9 L 411) MEAN CORPUSCULAR VOLUME (BEAKER) 102.5 fL 79.4-94.8 H (test code = 753) MEAN CORPUSCULAR HEMOGLOBIN 32.7 pg 25.6-32.2 H (BEAKER) (test code = 751) MEAN CORPUSCULAR HEMOGLOBIN CONC 31.9 GM/DL 32.2-35.5 L (BEAKER) (test code = 752) RED CELL DISTRIBUTION WIDTH 18.4 % 11.7-14.4 H (BEAKER) (test code = 412) PLATELET COUNT (BEAKER) (test 364 K/CU MM 150-450 code = 756) MEAN PLATELET VOLUME (BEAKER) 10.7 fL 9.4-12.3 (test code = 754) NUCLEATED RED BLOOD CELLS 3 /100 WBC 0-0 H (BEAKER) (test code = 413) (CELLAVISION MANUAL DIFF)2019-12-28 11:17:00 Test Item Value Reference Range Interpretation Comments NEUTROPHILS - REL 61 % (CELLAVISION)(BEAKER) (test code = 2816) LYMPHOCYTES - REL 23 % (CELLAVISION)(BEAKER) (test code = 2817) MONOCYTES - REL 11 % (CELLAVISION)(BEAKER) (test code = 2818) EOSINOPHILS - REL 3 % (CELLAVISION)(BEAKER) (test code = 2819) BASOPHILS - REL 2 % (CELLAVISION)(BEAKER) (test code = 2820) NEUTROPHILS - ABS 11.65 K/ul 1.56-6.13 H (CELLAVISION)(BEAKER) (test code = 2830) LYMPHOCYTES - ABS 4.39 K/ul 1.18-3.74 H (CELLAVISION)(BEAKER) (test code = 2831) MONOCYTES - ABS 2.10 K/uL 0.24-0.36 H (CELLAVISION)(BEAKER) (test code = 2832) EOSINOPHILS - ABS 0.57 K/uL 0.04-0.36 H (CELLAVISION)(BEAKER) (test code = 2834) BASOPHILS - ABS 0.38 K/uL 0.01-0.08 H (CELLAVISION)(BEAKER) (test code = 2835) TOTAL COUNTED (BEAKER) (test code 100 = 1351) MANUAL NRBC PER 100 CELLS 7 /100 WBC 0-0 H (BEAKER) (test code = 1353) SMUDGE CELLS (BEAKER) (test code Present = 1371) GIANT PLATELETS (BEAKER) (test Present code = 313) POLYCHROMATOPHILLIC RBCS(BEAKER) 1+ few (test code = 478) ANISOCYTOSIS (BEAKER) (test code 2+ moderate = 961) POIKILOCYTES (BEAKER) (test code 1+ few = 966) TARGET CELLS (BEAKER) (test code 1+ few = 480) SICKLE CELLS (BEAKER) (test code 1+ few = 767) ARTIFACT (CELLAVISION)(BEAKER) Present (test code = 3432) PLATELET CONCENTRATION Adequate (CELLAVISION)(BEAKER) (test code = 3438) Transmission Superintendent ID - Flavia BotelloDelonte comments: Slide comments:Basic Metabolic Panel 2019-12-28 06:00:00 Test Item Value Reference Range Interpretation Comments Sodium (test code = 138 meq/L 492-307 3946-2) Potassium (test code 3.6 meq/L 3.5-5.1 = 2823-3) Chloride (test code = 109 meq/L 98-107 H 2075-0) CO2 (test code = 23 meq/L 22-29 8-9) BUN (test code = 7 mg/dL 7-21 3094-0) Creatinine (test code 0.79 mg/dL 0.57-1.25 = 2160-0) Glucose (test code = 89 mg/dL 70-105 2345-7) Calcium (test code = 8.4 mg/dL 8.4-10.2 02297-9) EGFR (test code = 98 mL/min/1.73 [place] [address]-7) NOT ACCURATE CREATININE CLEARANCE IN PREDICTING GLOMERULAR FILTRATION RATE . ESTIMATED GFR I S NOT APPLICABLE FOR DIALYSIS PATIENTS. NOLAN (test code = NOLAN) Transmission Superintendent ID - THAO MSpecimen slightly icteric Lab Interpretation Abnormal (test code = 36033-0) [facility] Test Item Value Reference Range Interpretation Comments Magnesium (test code = 1.5 mg/dL 1.6-2.6 L 42957-4) NOLAN (test code = NOLAN) Transmission Superintendent ID - THAO M Lab Interpretation (test Abnormal code = 61575-4) [facility] Test Item Value Reference Range Interpretation Comments MAGNESIUM (BEAKER) (test code = 1.5 mg/dL 1.6-2.6 L 627) Transmission Superintendent ID - THAO MBASIC METABOLIC [id number] 06:00:00 Test Item Value Reference Range Interpretation Comments SODIUM (BEAKER) 138 meq/L 136-145 (test code = 381) POTASSIUM (BEAKER) 3.6 meq/L 3.5-5.1 (test code = 379) CHLORIDE (BEAKER) 109 meq/L 98-107 H (test code = 382) CO2 (BEAKER) (test 23 meq/L 22-29 code = 355) BLOOD UREA NITROGEN 7 mg/dL 7-21 (BEAKER) (test code = 354) CREATININE (BEAKER) 0.79 mg/dL 0.57-1.25 (test code = 358) GLUCOSE RANDOM 89 mg/dL 70-105 (BEAKER) (test code = 652) CALCIUM (BEAKER) 8.4 mg/dL 8.4-10.2 (test code = 697) EGFR (BEAKER) (test 98 mL/min/1.73 ESTIMA DUNCAN GFR IS code = 1092) sq m NOT ACCURATE CREATININE CLEARANCE IN PREDICTING GLOMERULAR FILTRATION RATE . ESTIMATED GFR I S NOT APPLICABLE FOR DIALYSIS PATIEN TS. Transmission Superintendent ID - THAO MSpecimen slightly ictericBlood Culture - Routine (Right Venipuncture)2019-12-27 17:00:00 Test Item Value Reference Range Interpretation Comments Result (test code = No growth in 5 days 6463-4) [facility] [id number] 17:00:00 Test Item Value Reference Range Interpretation Comments CULTURE (BEAKER) (test No growth in 5 days code = 1095) BLOOD [id number] 14:00:00 Test Item Value Reference Range Interpretation Comments CULTURE (BEAKER) (test No growth in 5 days code = 1095) CBC W/PLT COUNT & AUTO [id number] 09:03:00 Test Item Value Reference Range Interpretation Comments WHITE BLOOD CELL COUNT (BEAKER) 17.2 K/ L 3.5-10.5 H (test code = 775) RED BLOOD CELL COUNT (BEAKER) 2.07 M/ L 3.93-5.22 L (test code = 761) HEMOGLOBIN (BEAKER) (test code = 6.7 GM/DL 11.2-15.7 L 410) HEMATOCRIT (BEAKER) (test code = 20.8 % 34.1-44.9 L 411) MEAN CORPUSCULAR VOLUME (BEAKER) 100.5 fL 79.4-94.8 H (test code = 753) MEAN CORPUSCULAR HEMOGLOBIN 32.4 pg 25.6-32.2 H (BEAKER) (test code = 751) MEAN CORPUSCULAR HEMOGLOBIN CONC 32.2 GM/DL 32.2-35.5 (BEAKER) (test code = 752) RED CELL DISTRIBUTION WIDTH 18.6 % 11.7-14.4 H (BEAKER) (test code = 412) PLATELET COUNT (BEAKER) (test 311 K/CU MM 150-450 code = 756) MEAN PLATELET VOLUME (BEAKER) 10.4 fL 9.4-12.3 (test code = 754) NUCLEATED RED BLOOD CELLS 4 /100 WBC 0-0 H (BEAKER) (test code = 413) (CELLAVISION MANUAL DIFF)2019-12-27 09:03:00 Test Item Value Reference Range Interpretation Comments NEUTROPHILS - REL 55 % (CELLAVISION)(BEAKER) (test code = 2816) LYMPHOCYTES - REL 29 % (CELLAVISION)(BEAKER) (test code = 2817) MONOCYTES - REL 15 % (CELLAVISION)(BEAKER) (test code = 2818) ATYPICAL LYMPHOCYTES - REL 1 % 0-0 H (CELLAVISION)(BEAKER) (test code = 2829) NEUTROPHILS - ABS 9.46 K/ul 1.56-6.13 H (CELLAVISION)(BEAKER) (test code = 2830) LYMPHOCYTES - ABS 4.99 K/ul 1.18-3.74 H (CELLAVISION)(BEAKER) (test code = 2831) MONOCYTES - ABS 2.58 K/uL 0.24-0.36 H (CELLAVISION)(BEAKER) (test code = 2832) ATYPICAL LYMPHOCYTES - ABS 0.17 K/uL 0.00-0.00 H (CELLAVISION)(BEAKER) (test code = 2858) TOTAL COUNTED (BEAKER) (test code 100 = 1351) MANUAL NRBC PER 100 CELLS 6 /100 WBC 0-0 H (BEAKER) (test code = 1353) PLT MORPHOLOGY (BEAKER) (test Normal code = 486) VACUOLATED NEUTROPHILS (BEAKER) Present (test code = 483) POLYCHROMATOPHILLIC RBCS(BEAKER) 2+ moderate (test code = 478) HYPOCHROMIA (BEAKER) (test code = 1+ few 963) TARGET CELLS (BEAKER) (test code 1+ few = 480) SICKLE CELLS (BEAKER) (test code 1+ few = 767) ARTIFACT (CELLAVISION)(BEAKER) Present (test code = 3432) PLATELET CONCENTRATION Adequate (CELLAVISION)(BEAKER) (test code = 3438) Transmission Superintendent ID - Lisa Monae comments: Slide comments:[id number] 08:31:00 Test Item Value Reference Range Interpretation Comments MAGNESIUM (BEAKER) (test code = 1.5 mg/dL 1.6-2.6 L 627) Transmission Superintendent ID - JAXSON CBASIC METABOLIC [id number] 08:31:00 Test Item Value Reference Range Interpretation Comments SODIUM (BEAKER) 138 meq/L 136-145 (test code = 381) POTASSIUM (BEAKER) 4.1 meq/L 3.5-5.1 (test code = 379) CHLORIDE (BEAKER) 109 meq/L 98-107 H (test code = 382) CO2 (BEAKER) (test 25 meq/L 22-29 code = 355) BLOOD UREA NITROGEN 6 mg/dL 7-21 L (BEAKER) (test code = 354) CREATININE (BEAKER) 0.73 mg/dL 0.57-1.25 (test code = 358) GLUCOSE RANDOM 98 mg/dL 70-105 (BEAKER) (test code = 652) CALCIUM (BEAKER) 8.6 mg/dL 8.4-10.2 (test code = 697) EGFR (BEAKER) (test 107 mL/min/1.73 ESTIM ATED GFR IS code = 1092) sq m NOT ACCURATE CREATININE CLEARANCE IN PREDICTING GLOMERULAR FILTRATION RATE . ESTIMATED GFR I S NOT APPLICABLE FOR DIALYSIS PATIEN TS. Transmission Superintendent ID - JAXSON CSpecimen slightly ictericVancomycin level, [id number] 09:08:00 Test Item Value Reference Range Interpretation Comments Vancomycin Tr (test code = 16.4 ug/mL 10-20 4092-3) NOLAN (test code = NOLAN) Transmission Superintendent ID - JADA F Lab Interpretation (test Normal code = 17872-3) [facility] HospitalVANCOMYCIN LEVEL, [id number] 09:08:00 Test Item Value Reference Range Interpretation Comments VANCOMYCIN TROUGH (BEAKER) (test 16.4 ug/mL 10.0-20.0 code = 522) Transmission Superintendent ID - JADA FCBC W/PLT COUNT & AUTO [id number] 06:59:00 Test Item Value Reference Range Interpretation Comments WHITE BLOOD CELL COUNT (BEAKER) 17.4 K/ L 3.5-10.5 H (test code = 775) RED BLOOD CELL COUNT (BEAKER) 2.15 M/ L 3.93-5.22 L (test code = 761) HEMOGLOBIN (BEAKER) (test code = 7.0 GM/DL 11.2-15.7 L 410) HEMATOCRIT (BEAKER) (test code = 22.1 % 34.1-44.9 L 411) MEAN CORPUSCULAR VOLUME (BEAKER) 102.8 fL 79.4-94.8 H (test code = 753) MEAN CORPUSCULAR HEMOGLOBIN 32.6 pg 25.6-32.2 H (BEAKER) (test code = 751) MEAN CORPUSCULAR HEMOGLOBIN CONC 31.7 GM/DL 32.2-35.5 L (BEAKER) (test code = 752) RED CELL DISTRIBUTION WIDTH 19.5 % 11.7-14.4 H (BEAKER) (test code = 412) PLATELET COUNT (BEAKER) (test 231 K/CU MM 150-450 code = 756) MEAN PLATELET VOLUME (BEAKER) 10.9 fL 9.4-12.3 (test code = 754) NUCLEATED RED BLOOD CELLS 28 /100 WBC 0-0 H (BEAKER) (test code = 413) (CELLAVISION MANUAL DIFF)2019-12-26 06:59:00 Test Item Value Reference Range Interpretation Comments NEUTROPHILS - REL 63 % (CELLAVISION)(BEAKER) (test code = 2816) LYMPHOCYTES - REL 24 % (CELLAVISION)(BEAKER) (test code = 2817) MONOCYTES - REL 8 % (CELLAVISION)(BEAKER) (test code = 2818) EOSINOPHILS - REL 3 % (CELLAVISION)(BEAKER) (test code = 2819) METAMYELOCYTES - REL 1 % 0-0 H (CELLAVISION)(BEAKER) (test code = 2821) MYELOCYTES - REL 1 % 0-0 H (CELLAVISION)(BEAKER) (test code = 2822) NEUTROPHILS - ABS 10.96 K/ul 1.56-6.13 H (CELLAVISION)(BEAKER) (test code = 2830) LYMPHOCYTES - ABS 4.18 K/ul 1.18-3.74 H (CELLAVISION)(BEAKER) (test code = 2831) MONOCYTES - ABS 1.39 K/uL 0.24-0.36 H (CELLAVISION)(BEAKER) (test code = 2832) EOSINOPHILS - ABS 0.52 K/uL 0.04-0.36 H (CELLAVISION)(BEAKER) (test code = 2834) METAMYELOCYTES - ABS 0.17 K/uL 0.00-0.00 H (CELLAVISION)(BEAKER) (test code = 2836) MYELOCYTES-ABS 0.17 K/uL 0.00-0.00 H (CELLAVISION)(BEAKER) (test code = 2837) TOTAL COUNTED (BEAKER) (test code 100 = 1351) MANUAL NRBC PER 100 CELLS 39 /100 WBC 0-0 H (BEAKER) (test code = 1353) SMUDGE CELLS (BEAKER) (test code Present = 1371) GIANT PLATELETS (BEAKER) (test Present code = 313) TOXIC GRANULATION (BEAKER) (test Present code = 771) POLYCHROMATOPHILLIC RBCS(BEAKER) 1+ few (test code = 478) ANISOCYTOSIS (BEAKER) (test code 2+ moderate = 961) MACROCYTES (BEAKER) (test code = 2+ moderate 964) TARGET CELLS (BEAKER) (test code 1+ few = 480) SICKLE CELLS (BEAKER) (test code 1+ few = 767) PLATELET CONCENTRATION Adequate (CELLAVISION)(BEAKER) (test code = 3438) Transmission Superintendent ID - Flavia Neil comments: Slide comments:[id number] 04:53:00 Test Item Value Reference Range Interpretation Comments MAGNESIUM (BEAKER) (test code = 1.6 mg/dL 1.6-2.6 627) Transmission Superintendent ID - FRANCIS WBASIC METABOLIC [id number] 04:53:00 Test Item Value Reference Range Interpretation Comments SODIUM (BEAKER) 138 meq/L 136-145 (test code = 381) POTASSIUM (BEAKER) 4.0 meq/L 3.5-5.1 (test code = 379) CHLORIDE (BEAKER) 109 meq/L 98-107 H (test code = 382) CO2 (BEAKER) (test 25 meq/L 22-29 code = 355) BLOOD UREA NITROGEN 6 mg/dL 7-21 L (BEAKER) (test code = 354) CREATININE (BEAKER) 0.71 mg/dL 0.57-1.25 (test code = 358) GLUCOSE RANDOM 103 mg/dL 70-105 (BEAKER) (test code = 652) CALCIUM (BEAKER) 8.6 mg/dL 8.4-10.2 (test code = 697) EGFR (BEAKER) (test 111 mL/min/1.73 ESTIM ATED GFR IS code = 1092) sq m NOT ACCURATE CREATININE CLEARANCE IN PREDICTING GLOMERULAR FILTRATION RATE . ESTIMATED GFR I S NOT APPLICABLE FOR DIALYSIS PATIEN TS. Transmission Superintendent ID - FRANCIS GARZONpecimelasha slightly ictericPrepare [id number] 04:32:00 Test Item Value Reference Range Interpretation Comments Unit ABO (test code = O Pos [id number]) UNIT NUMBER (test code = [id number] 934-0) Status (test code = 6159689) WORK IN PROGRESS Blood Bank Product (test RED BLOOD CELLS code = 2263) PRODUCT CODE (test code = S8708S86 933-2) CROSSMATCH (test code = COMPATIBLE 2264) [facility] [id number] 11:09:00 Test Item Value Reference Range Interpretation Comments Result (test code = 2+ Methicillin A 6463-4) resistant Staphylococcus aureus Lab Interpretation Abnormal (test code = 30627-2) [facility] [id number] 11:09:00 Test Item Value Reference Range Interpretation Comments CULTURE (BEAKER) A 2+ Methicil joslyn resistant (test code = 1095) Staphyloc occus aureus CBC W/PLT COUNT & AUTO [id number] 08:47:00 Test Item Value Reference Range Interpretation Comments WHITE BLOOD CELL COUNT (BEAKER) 14.6 K/ L 3.5-10.5 H (test code = 775) RED BLOOD CELL COUNT (BEAKER) 2.31 M/ L 3.93-5.22 L (test code = 761) HEMOGLOBIN (BEAKER) (test code = 7.6 GM/DL 11.2-15.7 L 410) HEMATOCRIT (BEAKER) (test code = 23.6 % 34.1-44.9 L 411) MEAN CORPUSCULAR VOLUME (BEAKER) 102.2 fL 79.4-94.8 H (test code = 753) MEAN CORPUSCULAR HEMOGLOBIN 32.9 pg 25.6-32.2 H (BEAKER) (test code = 751) MEAN CORPUSCULAR HEMOGLOBIN CONC 32.2 GM/DL 32.2-35.5 (BEAKER) (test code = 752) RED CELL DISTRIBUTION WIDTH 20.3 % 11.7-14.4 H (BEAKER) (test code = 412) PLATELET COUNT (BEAKER) (test 175 K/CU MM 150-450 code = 756) MEAN PLATELET VOLUME (BEAKER) 10.9 fL 9.4-12.3 (test code = 754) NUCLEATED RED BLOOD CELLS 130 /100 WBC 0-0 H (BEAKER) (test code = 413) (CELLAVISION MANUAL DIFF)2019-12-25 08:47:00 Test Item Value Reference Range Interpretation Comments NEUTROPHILS - REL 72 % (CELLAVISION)(BEAKER) (test code = 2816) LYMPHOCYTES - REL 11 % (CELLAVISION)(BEAKER) (test code = 2817) MONOCYTES - REL 17 % (CELLAVISION)(BEAKER) (test code = 2818) NEUTROPHILS - ABS 10.51 K/ul 1.56-6.13 H (CELLAVISION)(BEAKER) (test code = 2830) LYMPHOCYTES - ABS 1.61 K/ul 1.18-3.74 (CELLAVISION)(BEAKER) (test code = 2831) MONOCYTES - ABS 2.48 K/uL 0.24-0.36 H (CELLAVISION)(BEAKER) (test code = 2832) TOTAL COUNTED (BEAKER) (test 100 code = 1351) MANUAL NRBC PER 100 CELLS 126 /100 WBC 0-0 H (BEAKER) (test code = 1353) PLT MORPHOLOGY (BEAKER) (test Normal code = 486) TOXIC GRANULATION (BEAKER) (test Present code = 771) POLYCHROMATOPHILLIC RBCS(BEAKER) 2+ moderate (test code = 478) ANISOCYTOSIS (BEAKER) (test code 2+ moderate = 961) MACROCYTES (BEAKER) (test code = 1+ few 964) POIKILOCYTES (BEAKER) (test code 1+ few = 966) TARGET CELLS (BEAKER) (test code 1+ few = 480) SICKLE CELLS (BEAKER) (test code 1+ few = 767) ARTIFACT (CELLAVISION)(BEAKER) Present (test code = 3432) PAPPENHEIMER 1+ few (CELLAVISION)(BEAKER) (test code = 3435) PLATELET CONCENTRATION Decreased (CELLAVISION)(BEAKER) (test code = 3438) Transmission Superintendent ID - [id number] ID - Em Crysviry comments: Slide comments:Hepatic function [id number] 04:50:00 Test Item Value Reference Range Interpretation Comments Protein, Total (test code 8.2 6.0- 8.3 gm/dL = 2885-2) Albumin (test code = 2.6 g/dL 3.5-5 L 63162-6) Total Bilirubin (test 3.8 mg/dL 0.2-1.2 H code = 1974-2) Bilirubin, Direct (test 2.0 mg/dL 0.1-0.5 H code = 1968-7) Alkaline Phosphatase 159 U/L 40-150 H (test code = 6768-6) AST (test code = 1920-8) 110 U/L 5-34 H ALT (test code = 1742-6) 88 U/L 6-55 H NOLAN (test code = NOLAN) Transmission Superintendent ID - THAO MSpecimen slightly icteric Lab Interpretation (test Abnormal code = 99377-7) [facility] 04:50:00 Test Item Value Reference Range Interpretation Comments Phosphorus (test code = 3.2 mg/dL 2.3-4.7 2777-1) NOLAN (test code = NOLAN) Transmission Superintendent ID - THAO M Lab Interpretation (test Normal code = 97656-0) [facility]07 04:50:00 Test Item Value Reference Range Interpretation Comments PHOSPHORUS (BEAKER) (test code = 3.2 mg/dL 2.3-4.7 604) Transmission Superintendent ID - THAO [id number] 04:50:00 Test Item Value Reference Range Interpretation Comments MAGNESIUM (BEAKER) (test code = 1.7 mg/dL 1.6-2.6 627) Transmission Superintendent ID - THAO MBASIC METABOLIC [id number] 04:50:00 Test Item Value Reference Range Interpretation Comments SODIUM (BEAKER) 135 meq/L 136-145 L (test code = 381) POTASSIUM (BEAKER) 3.8 meq/L 3.5-5.1 (test code = 379) CHLORIDE (BEAKER) 110 meq/L 98-107 H (test code = 382) CO2 (BEAKER) (test 20 meq/L 22-29 L code = 355) BLOOD UREA NITROGEN 9 mg/dL 7-21 (BEAKER) (test code = 354) CREATININE (BEAKER) 0.64 mg/dL 0.57-1.25 (test code = 358) GLUCOSE RANDOM 98 mg/dL 70-105 (BEAKER) (test code = 652) CALCIUM (BEAKER) 8.0 mg/dL 8.4-10.2 L (test code = 697) EGFR (BEAKER) (test 125 mL/min/1.73 ESTIM ATED GFR IS code = 1092) sq m NOT ACCURATE CREATININE CLEARANCE IN PREDICTING GLOMERULAR FILTRATION RATE . ESTIMATED GFR I S NOT APPLICABLE FOR DIALYSIS PATIEN TS. Transmission Superintendent ID Akilah OSUNA Luis Miguelecimen slightly ictericHEPATIC FUNCTION [id number] 04:50:00 Test Item Value Reference Range Interpretation Comments TOTAL PROTEIN (BEAKER) (test code = 8.2 gm/dL 6.0-8.3 770) ALBUMIN (BEAKER) (test code = 1145) 2.6 g/dL 3.5-5.0 L BILIRUBIN TOTAL (BEAKER) (test code 3.8 mg/dL 0.2-1.2 H = 377) BILIRUBIN DIRECT (BEAKER) (test 2.0 mg/dL 0.1-0.5 H code = 706) ALKALINE PHOSPHATASE (BEAKER) (test 159 U/L 40-150 H code = 346) AST (SGOT) (BEAKER) (test code = 110 U/L 5-34 H 353) ALT (SGPT) (BEAKER) (test code = 88 U/L 6-55 H 347) Transmission Superintendent ID Akilah OSUNA MSpecimen slightly ictericUrine [id number] 10:41:00 Test Item Value Reference Range Interpretation Comments Result (test code = <10,000 col/mL skin 6463-4) [facility] W/PLT COUNT & AUTO [id number] 10:30:00 Test Item Value Reference Range Interpretation Comments WHITE BLOOD CELL COUNT (BEAKER) 20.3 K/ L 3.5-10.5 H (test code = 775) RED BLOOD CELL COUNT (BEAKER) 2.09 M/ L 3.93-5.22 L (test code = 761) HEMOGLOBIN (BEAKER) (test code = 7.0 GM/DL 11.2-15.7 L 410) HEMATOCRIT (BEAKER) (test code = 21.5 % 34.1-44.9 L 411) MEAN CORPUSCULAR VOLUME (BEAKER) 102.9 fL 79.4-94.8 H (test code = 753) MEAN CORPUSCULAR HEMOGLOBIN 33.5 pg 25.6-32.2 H (BEAKER) (test code = 751) MEAN CORPUSCULAR HEMOGLOBIN CONC 32.6 GM/DL 32.2-35.5 (BEAKER) (test code = 752) RED CELL DISTRIBUTION WIDTH 20.7 % 11.7-14.4 H (BEAKER) (test code = 412) PLATELET COUNT (BEAKER) (test 199 K/CU MM 150-450 code = 756) MEAN PLATELET VOLUME (BEAKER) 10.8 fL 9.4-12.3 (test code = 754) NUCLEATED RED BLOOD CELLS 143 /100 WBC 0-0 H (BEAKER) (test code = 413) (CELLAVISION MANUAL DIFF)2019-12-24 10:30:00 Test Item Value Reference Range Interpretation Comments NEUTROPHILS - REL 75 % (CELLAVISION)(BEAKER) (test code = 2816) LYMPHOCYTES - REL 12 % (CELLAVISION)(BEAKER) (test code = 2817) MONOCYTES - REL 12 % (CELLAVISION)(BEAKER) (test code = 2818) BANDS - REL 1 % 0-10 (CELLAVISION)(BEAKER) (test code = 2826) NEUTROPHILS - ABS 15.23 K/ul 1.56-6.13 H (CELLAVISION)(BEAKER) (test code = 2830) LYMPHOCYTES - ABS 2.44 K/ul 1.18-3.74 (CELLAVISION)(BEAKER) (test code = 2831) MONOCYTES - ABS 2.44 K/uL 0.24-0.36 H (CELLAVISION)(BEAKER) (test code = 2832) BANDS - ABS 0.20 K/uL 0.00-0.80 (CELLAVISION)(BEAKER) (test code = 2840) TOTAL COUNTED (BEAKER) (test 100 code = 1351) MANUAL NRBC PER 100 CELLS 190 /100 WBC 0-0 H (BEAKER) (test code = 1353) WBC MORPHOLOGY (BEAKER) (test Normal code = 487) PLT MORPHOLOGY (BEAKER) (test Normal code = 486) POLYCHROMATOPHILLIC RBCS(BEAKER) 2+ moderate (test code = 478) ANISOCYTOSIS (BEAKER) (test code 1+ few = 961) MACROCYTES (BEAKER) (test code = 1+ few 964) POIKILOCYTES (BEAKER) (test code 2+ moderate = 966) TARGET CELLS (BEAKER) (test code 2+ moderate = 480) SICKLE CELLS (BEAKER) (test code 1+ few = 767) Cell differential performed [id number] 06:08:00 Test Item Value Reference Range Interpretation Comments PHOSPHORUS (BEAKER) (test code = 2.8 mg/dL 2.3-4.7 604) Transmission Superintendent ID - THAO [id number] 06:08:00 Test Item Value Reference Range Interpretation Comments MAGNESIUM (BEAKER) (test code = 2.0 mg/dL 1.6-2.6 627) Transmission Superintendent ID - THAO MBASIC METABOLIC [id number] 06:08:00 Test Item Value Reference Range Interpretation Comments SODIUM (BEAKER) 137 meq/L 136-145 (test code = 381) POTASSIUM (BEAKER) 4.4 meq/L 3.5-5.1 (test code = 379) CHLORIDE (BEAKER) 111 meq/L 98-107 H (test code = 382) CO2 (BEAKER) (test 21 meq/L 22-29 L code = 355) BLOOD UREA NITROGEN 14 mg/dL 7-21 (BEAKER) (test code = 354) CREATININE (BEAKER) 0.76 mg/dL 0.57-1.25 (test code = 358) GLUCOSE RANDOM 97 mg/dL 70-105 (BEAKER) (test code = 652) CALCIUM (BEAKER) 8.6 mg/dL 8.4-10.2 (test code = 697) EGFR (BEAKER) (test 102 mL/min/1.73 ESTIM ATED GFR IS code = 1092) sq m NOT ACCURATE CREATININE CLEARANCE IN PREDICTING GLOMERULAR FILTRATION RATE . ESTIMATED GFR I S NOT APPLICABLE FOR DIALYSIS PATIEN TS. Transmission Superintendent ID - THAO Luis Miguelecimen moderately ictericHEPATIC FUNCTION [id number] 06:08:00 Test Item Value Reference Range Interpretation Comments TOTAL PROTEIN (BEAKER) (test code = 8.6 gm/dL 6.0-8.3 H 770) ALBUMIN (BEAKER) (test code = 1145) 2.9 g/dL 3.5-5.0 L BILIRUBIN TOTAL (BEAKER) (test code 4.8 mg/dL 0.2-1.2 H = 377) BILIRUBIN DIRECT (BEAKER) (test 2.5 mg/dL 0.1-0.5 H code = 706) ALKALINE PHOSPHATASE (BEAKER) (test 186 U/L 40-150 H code = 346) AST (SGOT) (BEAKER) (test code = 180 U/L 5-34 H 353) ALT (SGPT) (BEAKER) (test code = 129 U/L 6-55 H 347) Transmission Superintendent ID - THAO Bolanosecimelasha moderately ictericPrepare Leuko-Red [id number] 23:54:00 Test Item Value Reference Range Interpretation Comments Unit ABO (test code = O Pos [id number]) UNIT NUMBER (test code = [id number] 934-0) Status (test code = 5021717) TX_TIMEINCHART Blood Bank Product (test code RED BLOOD CELLS = 2263) PRODUCT CODE (test code = A3991W23 933-2) CROSSMATCH (test code = 2264) [facility]IBLE [facility], [id number] 20:27:00 Test Item Value Reference Range Interpretation Comments VANCOMYCIN TROUGH (BEAKER) (test 13.6 ug/mL 10.0-20.0 code = 522) Transmission Superintendent ID - LAURACBC W/PLT COUNT & AUTO [id number] 16:07:00 Test Item Value Reference Range Interpretation Comments WHITE BLOOD CELL COUNT (BEAKER) 24.7 K/ L 3.5-10.5 H (test code = 775) RED BLOOD CELL COUNT (BEAKER) 2.12 M/ L 3.93-5.22 L (test code = 761) HEMOGLOBIN (BEAKER) (test code = 7.0 GM/DL 11.2-15.7 L 410) HEMATOCRIT (BEAKER) (test code = 21.0 % 34.1-44.9 L 411) MEAN CORPUSCULAR VOLUME (BEAKER) 99.1 fL 79.4-94.8 H (test code = 753) MEAN CORPUSCULAR HEMOGLOBIN 33.0 pg 25.6-32.2 H (BEAKER) (test code = 751) MEAN CORPUSCULAR HEMOGLOBIN CONC 33.3 GM/DL 32.2-35.5 (BEAKER) (test code = 752) RED CELL DISTRIBUTION WIDTH 21.3 % 11.7-14.4 H (BEAKER) (test code = 412) PLATELET COUNT (BEAKER) (test 208 K/CU MM 150-450 code = 756) MEAN PLATELET VOLUME (BEAKER) 9.9 fL 9.4-12.3 (test code = 754) NUCLEATED RED BLOOD CELLS 100 /100 WBC 0-0 H (BEAKER) (test code = 413) Hemoglobin and [id number] 07:58:00 Test Item Value Reference Range Interpretation Comments Hemoglobin (test code = 7.0 11.2- 15.7 GM/DL L 786-4) Hematocrit (test code = 21.1 % 34.1-44.9 L 4544-3) NOLAN (test code = NOLAN) Transmission Superintendent ID - [id number] Lab Interpretation (test Abnormal code = 01545-4) [id number] 07:58:00 Test Item Value Reference Range Interpretation Comments HEMOGLOBIN (BEAKER) (test code = 7.0 GM/DL 11.2-15.7 L 410) HEMATOCRIT (BEAKER) (test code = 21.1 % 34.1-44.9 L 411) Transmission Superintendent ID - [id number] 06:54:59Interface, External Ris In - 12/23/2019 6:55 AM CDTVentricular Rate 108 BPMAtrial Rate 108 BPMP-R Interval 158 msQRS Duration 72 msQ-T Interval 312 msQTC Calculation(Bazett) 418 msP [place] 74 degreesR [place] 39 degreesT [place] 54 degreesSinus tachycardia with occasional Premature ventricular complexesMinimal voltage criteria for LVH, may be normal variantBorderline ECGWhen compared with ECG of [id number],Premature ventricular complexes are now PresentConfirmed by MD HANNAH, DALTON Bautista ([id number]) on 12/23/2019 6:54:58 [facility] W/PLT COUNT & AUTO [id number] 05:49:00 Test Item Value Reference Range Interpretation Comments WHITE BLOOD CELL COUNT 30.9 K/ L 3.5-10.5 H (BEAKER) (test code = 775) RED BLOOD CELL COUNT 2.23 M/ L 3.93-5.22 L (BEAKER) (test code = 761) HEMOGLOBIN (BEAKER) 7.4 GM/DL 11.2-15.7 L (test code = 410) HEMATOCRIT (BEAKER) 22.1 % 34.1-44.9 L (test code = 411) MEAN CORPUSCULAR 99.1 fL 79.4-94.8 H Discordant with VOLUME (BEAKER) (test previo us code = 753) result.clinical correlation required. MEAN CORPUSCULAR 33.2 pg 25.6-32.2 H HEMOGLOBIN (BEAKER) (test code = 751) MEAN CORPUSCULAR 33.5 GM/DL 32.2-35.5 HEMOGLOBIN CONC (BEAKER) (test code = 752) RED CELL DISTRIBUTION 20.3 % 11.7-14.4 H WIDTH (BEAKER) (test code = 412) PLATELET COUNT 236 K/CU MM 150-450 (BEAKER) (test code = 756) MEAN PLATELET VOLUME 10.1 fL 9.4-12.3 (BEAKER) (test code = 754) NUCLEATED RED BLOOD 72 /100 WBC 0-0 H CELLS (BEAKER) (test code = 413) (CELLAVISION MANUAL DIFF)2019-12-23 05:49:00 Test Item Value Reference Range Interpretation Comments NEUTROPHILS - REL 75 % (CELLAVISION)(BEAKER) (test code = 2816) LYMPHOCYTES - REL 16 % (CELLAVISION)(BEAKER) (test code = 2817) MONOCYTES - REL 7 % (CELLAVISION)(BEAKER) (test code = 2818) BANDS - REL 2 % 0-10 (CELLAVISION)(BEAKER) (test code = 2826) NEUTROPHILS - ABS 23.18 K/ul 1.56-6.13 H (CELLAVISION)(BEAKER) (test code = 2830) LYMPHOCYTES - ABS 4.94 K/ul 1.18-3.74 H (CELLAVISION)(BEAKER) (test code = 2831) MONOCYTES - ABS 2.16 K/uL 0.24-0.36 H (CELLAVISION)(BEAKER) (test code = 2832) BANDS - ABS 0.62 K/uL 0.00-0.80 (CELLAVISION)(BEAKER) (test code = 2840) TOTAL COUNTED (BEAKER) (test 100 code = 1351) MANUAL NRBC PER 100 CELLS 146 /100 WBC 0-0 H (BEAKER) (test code = 1353) GIANT PLATELETS (BEAKER) (test Present code = 313) VACUOLATED NEUTROPHILS (BEAKER) Present (test code = 483) POLYCHROMATOPHILLIC RBCS(BEAKER) 3+ many (test code = 478) ANISOCYTOSIS (BEAKER) (test code 2+ moderate = 961) MICROCYTES (BEAKER) (test code = 1+ few 965) MACROCYTES (BEAKER) (test code = 2+ moderate 964) POIKILOCYTES (BEAKER) (test code 1+ few = 966) TARGET CELLS (BEAKER) (test code 1+ few = 480) SICKLE CELLS (BEAKER) (test code 1+ few = 767) ARTIFACT (CELLAVISION)(BEAKER) Present (test code = 3432) PLATELET CONCENTRATION Adequate (CELLAVISION)(BEAKER) (test code = 3438) Transmission Superintendent ID - Teofilo Man comments: Slide comments:[id number] 02:53:00 Test Item Value Reference Range Interpretation Comments PHOSPHORUS (BEAKER) (test code = 3.7 mg/dL 2.3-4.7 604) Transmission Superintendent ID - PIJOYCELYN [id number] 02:53:00 Test Item Value Reference Range Interpretation Comments MAGNESIUM (BEAKER) (test code = 2.1 mg/dL 1.6-2.6 627) Transmission Superintendent ID - TERESA LBASIC METABOLIC [id number] 02:53:00 Test Item Value Reference Range Interpretation Comments SODIUM (BEAKER) 139 meq/L 136-145 (test code = 381) POTASSIUM (BEAKER) 4.7 meq/L 3.5-5.1 (test code = 379) CHLORIDE (BEAKER) 114 meq/L 98-107 H (test code = 382) CO2 (BEAKER) (test 18 meq/L 22-29 L code = 355) BLOOD UREA NITROGEN 24 mg/dL 7-21 H (BEAKER) (test code = 354) CREATININE (BEAKER) 0.84 mg/dL 0.57-1.25 (test code = 358) GLUCOSE RANDOM 122 mg/dL 70-105 H (BEAKER) (test code = 652) CALCIUM (BEAKER) 8.7 mg/dL 8.4-10.2 (test code = 697) EGFR (BEAKER) (test 91 mL/min/1.73 ESTIMA DUNCAN GFR IS code = 1092) sq m NOT ACCURATE CREATININE CLEARANCE IN PREDICTING GLOMERULAR FILTRATION RATE . ESTIMATED GFR I S NOT APPLICABLE FOR DIALYSIS PATIEN TS. Transmission Superintendent ID - TERESA LSpecimen slightly ictericHEPATIC FUNCTION [id number] 02:53:00 Test Item Value Reference Range Interpretation Comments TOTAL PROTEIN (BEAKER) (test code = 8.8 gm/dL 6.0-8.3 H 770) ALBUMIN (BEAKER) (test code = 1145) 3.1 g/dL 3.5-5.0 L BILIRUBIN TOTAL (BEAKER) (test code 5.5 mg/dL 0.2-1.2 H = 377) BILIRUBIN DIRECT (BEAKER) (test 3.1 mg/dL 0.1-0.5 H code = 706) ALKALINE PHOSPHATASE (BEAKER) (test 170 U/L 40-150 H code = 346) AST (SGOT) (BEAKER) (test code = 427 U/L 5-34 H 353) ALT (SGPT) (BEAKER) (test code = 191 U/L 6-55 H 347) Transmission Superintendent ID - TERESA LSpecimen slightly ictericHEMOGLOBIN AND HEMATOCRIT 2019-12-23 02:40:00 Test Item Value Reference Range Interpretation Comments HEMOGLOBIN (BEAKER) (test code = 7.4 GM/DL 11.2-15.7 L 410) HEMATOCRIT (BEAKER) (test code = 22.1 % 34.1-44.9 L 411) Transmission Superintendent ID - [id number] antigen, [id number] 23:53:00 Test Item Value Reference Range Interpretation Comments Legionella Urine Negative - see Negative for L. Antigen (test code comment pneumophi la = 70399-8) serogroup 1 ant igen, suggesting no r ecent or current infe ction with this serog roup. Legionellosis c annot be ruled out si nce other serogroup s and species may cau se disease. [facility] HospitalLEGIONELLA ANTIGEN, [id number] 23:53:00 Test Item Value Reference Range Interpretation Comments L. PNEUMOPHILA Negative - see Negative fo r L. SEROGP 1 UR AG comment pneumophila (BEAKER) (test code serogrou p 1 antigen, = 1156) suggesting no r ecent or current infe ction with this serog roup. Legionellosis c annot be ruled out si nce other serogroup s and species may cau se disease. Strep pneumoniae [id number] 23:52:00 Test Item Value Reference Range Interpretation Comments Strep pneumoniae Presumptive negative Presumptive Antigen (test code = [place] [address]-1) pneumonia - see pneumococcal comment pneumonia - see comment, Presumptive negative for pneumococcal meningitis NOLAN (test code = NOLAN) Presumptive negative for pneumococcal pneumonia, suggesting no current or recent pneumococcal infection. Infection due to S. pneumoniae cannot be ruled out since the antigen present in the sample may be below the detection limit of the test. Lab Interpretation Normal (test code = 89271-8) [facility]RE[facility] PNEUMONIAE [id number] 23:52:00 Test Item Value Reference Range Interpretation Comments STREP PNEUMONIAE Presumptive negative Presumptive negative ANTIGEN (BEAKER) for pneumococcal for pneumococcal (test code = 1615) pneumonia - see pneumonia - see comment commen Presumptive negative for pneumococcal pneumonia, suggesting no current or recent pneumococcal infection. Infection due to S. pneumoniae cannot be ruled out since the antigen present in the sample may be below the detection limit of the test. Troponin [id number] 21:54:00 Test Item Value Reference Range Interpretation Comments Troponin I (test code = 0.15 ng/mL 0-0.03 H 97250-7) NOLAN (test code = NOLAN) Troponin I (TnI) levels must be interpreted [...] failure, acidosis, acute neurological disease, and persistent tachyarrhythmia.Opera tor ID - BS Lab Interpretation (test Abnormal code = 11748-9) [facility] HospitalTROPONIN [id number] 21:54:00 Test Item Value Reference Range Interpretation Comments TROPONIN I (BEAKER) (test code = 0.15 ng/mL 0.00-0.03 H 397) Troponin I (TnI) levels must be interpreted [...] failure, acidosis, acute neurological disease, and persistent tachyarrhythmia.Transmission Superintendent ID - BSHEMOGLOBIN AND [id number] 19:32:00 Test Item Value Reference Range Interpretation Comments HEMOGLOBIN (BEAKER) (test code = 6.0 GM/DL 11.2-15.7 LL 410) HEMATOCRIT (BEAKER) (test code = 17.5 % 34.1-44.9 L 411) Transmission Superintendent ID - [id number], random [id number] 17:15:00 Test Item Value Reference Range Interpretation Comments Potassium Urine 34.3 meq/L (test code = 2828-2) NOLAN (test code = Reference Range: No NOLAN) NormalsOperator ID - DB [facility] HospitalPOTASSIUM, RANDOM [id number] 17:15:00 Test Item Value Reference Range Interpretation Comments POTASSIUM URINE (BEAKER) (test 34.3 meq/L code = 195) Reference Range: No NormalsOperator ID - DBProtein, random [id number] 17:07:00 Test Item Value Reference Range Interpretation Comments Protein, Urine (test code = 45 mg/dL 0-14 H 2888-6) NOLAN (test code = NOLAN) Transmission Superintendent ID - DB Lab Interpretation (test Abnormal code = 86722-7) [facility] HospitalPROTEIN, RANDOM [id number] 17:07:00 Test Item Value Reference Range Interpretation Comments PROTEIN, URINE (BEAKER) (test code = 45 mg/dL 0-14 H 1569) Transmission Superintendent ID - DBCreatinine, random [id number] 17:06:00 Test Item Value Reference Range Interpretation Comments Creatinine, Ur 45.6 mg/dL (test code = 2161-8) NOLAN (test code = Reference Range: No NOLAN) NormalsOperator ID - DB [facility] Centerodium, random [id number] 17:06:00 Test Item Value Reference Range Interpretation Comments Sodium Urine (test 35 meq/L code = 2955-3) NOLAN (test code = Reference Range: No NOLAN) NormalsOperator ID - DBOperator ID - DB [facility] HospitalCREATININE, RANDOM [id number] 17:06:00 Test Item Value Reference Range Interpretation Comments CREATININE URINE (BEAKER) (test 45.6 mg/dL code = 375) Reference Range: No NormalsOperator ID - DBSODIUM, RANDOM [id number] 17:06:00 Test Item Value Reference Range Interpretation Comments SODIUM URINE (BEAKER) (test code = 35 meq/L 243) Reference Range: No NormalsOperator ID - DBOperator ID - DBOsmolality, urine 2019-12-22 16:56:00 Test Item Value Reference Range Interpretation Comments Osmolality, Ur (test code = 353 50-1,200 mOsm/kg mOsm/kg 2695-5) Lab Interpretation (test code Normal = 49520-4) [facility] HospitalOSMOLALITY, [id number] 16:56:00 Test Item Value Reference Range Interpretation Comments OSMOLALITY URINE (BEAKER) (test 353 mOsm/kg 50-1,200 mOsm/kg code = 614) Antibody [id number] 15:56:00 Test Item Value Reference Range Interpretation Comments ANTIBODY ID Dapi-JfVovc-GiErpe- Previous ly (BEAKER) (test FBttr-TQonp-kKOSS identifi ed code = 2253) ANTIBODYUNID BgPreviously IgGWARM AUTO AB identified CwPreviously identified SPreviously identified Cold autoPreviously identified IgGPreviously identified Warm auto Antibody SIGNED OUT Anti E causes R BC Consult (test injury, transf use E code = 7139) negative RBCs. Anti c causes RBC in jury, transfuse c neg ative RBCs. History o f anti Cw, S, Bg and cold and warm autoantibodies. Elect ronic Signature : Karina Hendrix M.D. [facility] HospitalRespiratory Panel [id number] 15:49:00 Test Item Value Reference Range Interpretation Comments Human Metapneumovirus Not detected Not detected, (test code = 43385-2) Equivocal Rhinovirus (test code = Not detected Not detected, 99547-2) Equivocal INFLUENZA A (NO Not detected Not detected, SUBTYPE) (test code = Equivocal 23592-1) Influenza A subtype H1 (test code = 76453-9) Influenza A Subtype H3 (test code = 11198-3) Influenza A Subtype H1-2009 (test code = 39803-3) Influenza B (test code Not detected Not detected, = 23645-0) Equivocal Respiratory Syncytial Not detected Not detected, Virus (test code = Equivocal 53735-1) Parainfluenza Virus 1 Not detected Not detected, (test code = 35066-4) Equivocal Parainfluenza Virus 2 Not detected Not detected, (test code = 58011-2) Equivocal Parainfluenza virus 3 Not detected Not detected, (test code = 94470-6) Equivocal Parainfluenza Virus 4 Not detected Not detected, (test code = 15105-8) Equivocal Adenovirus (test code = Not detected Not detected, 31443-0) Equivocal Coronavirus 229E (test Not detected Not detected, code = 22578-4) Equivocal Coronavirus HKU1 (test Not detected Not detected, code = 96795-7) Equivocal Coronavirus NL63 (test Not detected Not detected, code = 72058-5) Equivocal Coronavirus OC43 (test Not detected Not detected, code = 71408-4) Equivocal Bordetella Pertussis Not detected Not detected, (test code = 61485-3) Equivocal Chlamydophila Not detected Not detected, Pneumoniae (test code = Equivocal 64142-0) Mycoplasma Pneumoniae Not detected Not detected, (test code = 09959-7) Equivocal NOLAN (test code = NOLAN) Other viruses and bacteria not targeted by this PCR panel cannot be excluded; therefore clinical correlation and follow up of serology, culture results, and other molecular studies is required. The results are not intended to be used as the sole means for clinical diagnosis or patient management decisions. This sample was tested at the [facility] Molecular Diagnostics Laboratory using the SonicbidsArray Respiratory Panel. It is FDA cleared and has been verified and approved by the [facility] Molecular Diagnostics Laboratory for clinical use on nasopharyngeal swab specimens. The performance of the FilmArray RP has not been established in individuals who received influenza vaccine. Recent administration of a nasal influenza vaccine may cause false positive results for Influenza A and/orInfluenza B. [facility] HospitalRESPIRATORY PANEL [id number] 15:49:00 Test Item Value Reference Range Interpretation Comments HUMAN METAPNEUMOVIRUS Not detected Not detected, (BEAKER) (test code = 2683) Equivocal RHINOVIRUS (BEAKER) (test Not detected Not detected, code = 2684) Equivocal INFLUENZA A (BEAKER) (test Not detected Not detected, code = 2685) Equivocal INFLUENZA A (NO SUBTYPE) (test code = 3606) INFLUENZA A SUBTYPE H1 (BEAKER) (test code = 2686) INFLUENZA A SUBTYPE H3 (BEAKER) (test code = 2687) INFLUENZA A SUBTYPE H1-2009 (BEAKER) (test code = 3198) INFLUENZA B (BEAKER) (test Not detected Not detected, code = 2688) Equivocal RESPIRATORY SYNCYTIAL VIRUS Not detected Not detected, (BEAKER) (test code = 3199) Equivocal PARAINFLUENZA VIRUS 1 Not detected Not detected, (BEAKER) (test code = 2691) Equivocal PARAINFLUENZA VIRUS 2 Not detected Not detected, (BEAKER) (test code = 2692) Equivocal PARAINFLUENZA VIRUS 3 Not detected Not detected, (BEAKER) (test code = 2693) Equivocal PARAINFLUENZA VIRUS 4 Not detected Not detected, (BEAKER) (test code = 3200) Equivocal ADENOVIRUS (BEAKER) (test Not detected Not detected, code = 2694) Equivocal CORONAVIRUS 229E (BEAKER) Not detected Not detected, (test code = 3201) Equivocal CORONAVIRUS HKU1 (BEAKER) Not detected Not detected, (test code = 3202) Equivocal CORONAVIRUS NL63 (BEAKER) Not detected Not detected, (test code = 3203) Equivocal CORONAVIRUS OC43 (BEAKER) Not detected Not detected, (test code = 3204) Equivocal BORDETELLA PERTUSSIS Not detected Not detected, (BEAKER) (test code = 3205) Equivocal CHLAMYDOPHILA PNEUMONIAE Not detected Not detected, (BEAKER) (test code = 3206) Equivocal MYCOPLASMA PNEUMONIAE Not detected Not detected, (BEAKER) (test code = 3207) Equivocal Other viruses and bacteria not targeted by this PCR panel cannot be excluded; therefore clinical correlation and follow up of serology, culture results, and other molecular studies is required. The results are not intended to be used as the sole means for clinical diagnosis or patient management decisions. This sample was tested at the [facility] Molecular Diagnostics Laboratory using the SonicbidsArray Respiratory Panel. It is FDA cleared and has been verified and approved by the [facility] Molecular Diagnostics Laboratory for clinical use on nasopharyngeal swab specimens.The performance of the FilmArrayRP has not been established in individuals who received influenza vaccine. Recent administration ofa nasal influenza vaccine may cause false positive results for Influenza A and/orInfluenza B.TROPONIN [id number] 14:50:00 Test Item Value Reference Range Interpretation Comments TROPONIN I (BEAKER) (test code = 0.26 ng/mL 0.00-0.03 [facility]) Troponin I (TnI) levels must be interpreted [...] failure, acidosis, acute neurological disease, and persistent tachyarrhythmia.Transmission Superintendent ID - JADA FU/S, ABDOMINAL, [id number] 14:49:00Abdomen limited area? Add comment if clarification is needed.->LiverReason for exam:->abnormalliver enzymes, abdominal painFINAL REPORT History: Right upper quadrant abdominal pain, elevated liver enzymes. FINDINGS: Correlation is made with patient's previous study performed November 07, 2017. Real-timesonographic examination reveals an enlarged liver measuring up to 21 cm in length. Hepatic echotexture is mildly and diffusely heterogeneous. There are no sonographically detectable masses or focal intrahepatic abnormalities identified. The gallbladder is now visible, likely a result of prior cholecystectomy. There appears to be a tiny amount of fluid in the gallbladder fossa region, of uncertain clinical significance. There is no intra or extrahepatic biliary ductal dilatation identified. The common bile duct measures up to 3 mm in diameter. The portal vein measures 8 mm in diameter and appears patent by Limited color Doppler examination. The right kidney is relatively large measuring up to 13.2 cm in length by 6.4 cm in greatest transverse diameter. Renal echogenicity is normal. There are no son ographically detectable solid masses, stones or evidence for obstruction. There is a 3.3 x 1.9 x 2.9cm slightly complex predominantly hypoechoic cyst with a single internal septation in the upper polethe right kidney. There are no other visible cysts. The pancreas is unremarkable were visible. Aortaand IVC are unremarkable. No ascites or abdominal fluid collections. IMPRESSION: 1. Hepatomegaly anddiffusely heterogeneous liver without focal hepatic mass or abnormality. 2. Nonvisualization of the gallbladder consistent with cholecystectomy. Small amount of fluid is noted in the gallbladder fossa of uncertain clinical significance. 3. 3.3 cm slightly complex cyst in the upper pole of the right kidney containing an internal septation. Signed: Alyssia Munguia MDReport Verified Date/Time: 12/22/201914:49:18 Reading Location: [address] Radiology Reading Room US abdomen [id number] 14:49:00Interface, External Ris In - 12/22/2019 2:51 PM CDTFINAL REPORT History: Right upper quadrant abdominal pain, elevated liver enzymes. FINDINGS: Correlation is made with patient's previous study performed November 07, 2017. Real-time sonographic examination reveals an enlarged liver measuring up to 21 cm in length. Hepatic echotexture is mildly and diffusely heterogeneous. There are no sonographically detectable masses or focal intrahepatic abnormalities identified. The gallbladder is now visible, likely a result of prior cholecystectomy. There appears to be a tiny amount of fluid in the gallbladder fossa region, of uncertain clinical significance. There is no intra or extrahepa tic biliary ductal dilatation identified. The common bile duct measures up to 3 mm in diameter. The portal vein measures 8 mm in diameter and appears patent by Limited color Doppler examination. The right kidney is relatively large measuring up to 13.2 cm in length by 6.4 cm in greatest transverse diameter. Renal echogenicity is normal. There are no sonographically detectable solid masses, stones or evidence for obstruction. There is a 3.3 x 1.9 x 2.9 cm slightly complex predominantly hypoechoic cyst with a single internal septation in the upper pole the right kidney. There are no other visible cysts. The pancreas is unremarkable were visible. Aorta and IVC are unremarkable. No ascites or abdominal fluid collections. IMPRESSION: 1. Hepatomegaly and diffusely heterogeneous liver without focal hepatic mass or abnormality. 2. Nonvisualization of the gallbladder consistent with cholecystectomy. Small amount of fluid is noted in the gallbladder fossa of uncertain clinical significance. 3. 3.3 cm slightly complex cyst in the upper pole of the right kidney containing an internal septation. Signed: Alyssia Munguia MDReport Verified Date/Time: 12/22/2019 14:49:18 Reading Location: [address] Radiology Reading Room [facility] W/PLT COUNT & AUTO DIFFERENTIAL 2019-12-22 14:41:00 Test Item Value Reference Range Interpretation Comments WHITE BLOOD CELL COUNT (BEAKER) 37.2 K/ L 3.5-10.5 H (test code = 775) RED BLOOD CELL COUNT (BEAKER) 1.03 M/ L 3.93-5.22 L (test code = 761) HEMOGLOBIN (BEAKER) (test code = 3.9 GM/DL 11.2-15.7 LL 410) HEMATOCRIT (BEAKER) (test code = 11.4 % 34.1-44.9 L 411) MEAN CORPUSCULAR VOLUME (BEAKER) 110.7 fL 79.4-94.8 H (test code = 753) MEAN CORPUSCULAR HEMOGLOBIN 37.9 pg 25.6-32.2 H (BEAKER) (test code = 751) MEAN CORPUSCULAR HEMOGLOBIN CONC 34.2 GM/DL 32.2-35.5 (BEAKER) (test code = 752) RED CELL DISTRIBUTION WIDTH 27.9 % 11.7-14.4 H (BEAKER) (test code = 412) PLATELET COUNT (BEAKER) (test 240 K/CU MM 150-450 code = 756) MEAN PLATELET VOLUME (BEAKER) 10.7 fL 9.4-12.3 (test code = 754) NUCLEATED RED BLOOD CELLS 39 /100 WBC 0-0 H (BEAKER) (test code = 413) (CELLAVISION MANUAL DIFF)2019-12-22 14:41:00 Test Item Value Reference Range Interpretation Comments NEUTROPHILS - REL 57 % (CELLAVISION)(BEAKER) (test code = 2816) LYMPHOCYTES - REL 25 % (CELLAVISION)(BEAKER) (test code = 2817) MONOCYTES - REL 17 % (CELLAVISION)(BEAKER) (test code = 2818) EOSINOPHILS - REL 1 % (CELLAVISION)(BEAKER) (test code = 2819) NEUTROPHILS - ABS 21.20 K/ul 1.56-6.13 H (CELLAVISION)(BEAKER) (test code = 2830) LYMPHOCYTES - ABS 9.30 K/ul 1.18-3.74 H (CELLAVISION)(BEAKER) (test code = 2831) MONOCYTES - ABS 6.32 K/uL 0.24-0.36 H (CELLAVISION)(BEAKER) (test code = 2832) EOSINOPHILS - ABS 0.37 K/uL 0.04-0.36 H (CELLAVISION)(BEAKER) (test code = 2834) TOTAL COUNTED (BEAKER) (test code 100 = 1351) MANUAL NRBC PER 100 CELLS 51 /100 WBC 0-0 H (BEAKER) (test code = 1353) WBC MORPHOLOGY (BEAKER) (test Normal code = 487) PLT MORPHOLOGY (BEAKER) (test Normal code = 486) POLYCHROMATOPHILLIC RBCS(BEAKER) 2+ moderate (test code = 478) HYPOCHROMIA (BEAKER) (test code = 1+ few 963) TARGET CELLS (BEAKER) (test code 2+ moderate = 480) SICKLE CELLS (BEAKER) (test code 3+ many = 767) MATTHEWS-JOLLY BODIES (BEAKER) Present (test code = 475) SARS-CoV2/RT-PCR ([facility])2019-12-22 14:18:00 Test Item Value Reference Range Interpretation Comments SARS-COV2/RT-PCR Not Detected Not Detected, (test code = Negative 41840-2) SARS-COV-2 [facility] PERFORMING LAB (test code = 96029-0) NOLAN (test code = Negative results do not NOLAN) preclude SARS-CoV-2 infection and should not be used as [...] of the Act. Fact Sheet for Healthcare Providers:https://www.[employer]/Documents/Xper t%20Xpress%20SARS%20CoV- 2/Fact%20Sheets/018-6512 %41QUSN-NHR-3%20HEALTHCA RE%20PROVIDERS%20FACT%20 SHEET.pdf Fact Sheet for Healthcare Patients:https://www.[employer].com/Documents/Xpert %20Xpress%20SARS%20CoV-2 /Fact%20Sheets/424-3801% 03AMNY-CUT-4%20PATIENT%2 0FACT%20SHEET.pdf Performing Laboratory:[facility] [place] [address] [facility] ([facility])2019-12-22 14:18:00 Test Item Value Reference Range Interpretation Comments SARS-COV2/RT-PCR (test Not Detected Not Detected, Negative code = 2393990) SARS-COV-[address] [facility] (test code = 0760075) Negative results do not preclude SARS-CoV-2 infection and should not be used as the sole basis for patient management decisions. Negative results must be combined with clinical observations, patient history, and epidemiological information. A false negative result may occur if a specimen is improperly collected, transported or handled.The limit of detection for this assay is 250 copies/mL.This SARS CoV-2 test is a rapid, real-time RT-PCR test intended for the qualitative detection of nucleic acid from SARS-CoV-2 in a nasopharyngeal swab specimen collected from individuals suspected of COVID-19 by their healthcare provider.This test has not been Food and Drug [...] is revoked under Section 564(g) of the Act.Fact Sheet for Healthcare Pro viders:https://www.[employer].View[employer]/Documents/Xpert%20Xpress%20SARS%20CoV-2/Fact%20Sh eets/3023802%41OISD-GOM-5%20HEALTHCARE%20PROVIDERS%20FACT%20SHEET.pdfFact Sheet for Healthcare Patients:https://www.[employer].View[employer]/Documents/Xpert%20Xpress%20SARS%20CoV-2/Fact%20Sheets/3023801%20SARS-COV -2%20PATIENT%20FACT%20SHEET.pdfPerforming Laboratory:[facility] [facility], [place] [address]Uzbeb Influenza A&B [id number] 14:13:00 Test Item Value Reference Range Interpretation Comments Rapid Influenza A Antigen Negative Negative, Inconclusive (test code = 56602-2) Rapid influenza B Antigen Negative Negative, Inconclusive (test code = 74712-8) Lab Interpretation (test code Normal = 30823-0) [facility] HospitalRAPID INFLUENZA A&B [id number] 14:13:00 Test Item Value Reference Range Interpretation Comments RAPID INFLUENZA A AG (BEAKER) Negative Negative, Inconclusive (test code = 1622) RAPID INFLUENZA B AG (BEAKER) Negative Negative, Inconclusive (test code = 1623) Bilirubin, [id number] 12:12:00 Test Item Value Reference Range Interpretation Comments Bilirubin, Indirect (test code = 3.3 mg/dL 0-1.1 H 1970-) Lab Interpretation (test code = Abnormal 61291-1) [facility] HospitalBILIRUBIN, [id number] 12:12:00 Test Item Value Reference Range Interpretation Comments BILIRUBIN, INDIRECT (BEAKER) (test 3.3 mg/dL 0.0-1.1 H code = 1554) Bilirubin, [id number] 12:10:00 Test Item Value Reference Range Interpretation Comments Bilirubin, Direct 2.7 mg/dL 0.1-0.5 H Specimen (test code = 1968-7) slightl y hemolyzed NOLAN (test code = NOLAN) Transmission Superintendent ID Akilah JADA F Lab Interpretation Abnormal (test code = 99777-4) [facility] HospitalBILIRUBIN, [id number] 12:10:00 Test Item Value Reference Range Interpretation Comments BILIRUBIN DIRECT 2.7 mg/dL 0.1-0.5 H Specimen sl ightly (BEAKER) (test code = hemoly zed 706) Transmission Superintendent ID - JADA FUrinalysis w/Microscopic + Reflex to [id number] 11:31:00 Test Item Value Reference Range Interpretation Comments Color, UA (test code = Yellow 5778-6) Clarity, UA (test code = Hazy 5767-9) Specific [place], UA (test 1.013 1.001-1.035 code = 5811-5) pH, UA (test code = 5.5 5.0-8.0 5803-2) Protein, UA (test code = 20 mg/dL Negative A 04706-6) Glucose, UA (test code = Negative Negative 365) Ketones, UA (test code = Negative Negative 2514-8) Bilirubin, UA (test code = Negative Negative 51273-6) Blood, UA (test code = Small Negative A 88143-5) Nitrite, UA (test code = Negative Negative 5802-4) Leukocytes, UA (test code Small Negative A = 5799-2) Urobilinogen, UA (test 0.2 mg/dL 0.2-1 code = 66134-2) RBC, UA (test code = 1 /HPF 58932-9) WBC, UA (test code = 10 /HPF 5821-4) Bacteria, UA (test code = Few 29919-3) Mucus (test code = 8247-9) Few Squam Epithel, UA (test <1 /HPF code = 80394-1) Specimen Source (test code = 2795) NOLAN (test code = NOLAN) Transmission Superintendent ID - [auto]Transmission Superintendent ID - tech Lab Interpretation (test Abnormal code = 26746-3) [facility]UR[facility]FLEX URINE [id number] 11:31:00 Test Item Value Reference Range Interpretation Comments COLOR (BEAKER) (test code = 470) Yellow CLARITY (BEAKER) (test code = 469) Hazy SPECIFIC GRAVITY UA (BEAKER) (test 1.013 1.001-1.035 code = 468) PH UA (BEAKER) (test code = 467) 5.5 5.0-8.0 PROTEIN UA (BEAKER) (test code = 20 mg/dL Negative A 464) GLUCOSE UA (BEAKER) (test code = Negative Negative 365) KETONES UA (BEAKER) (test code = Negative Negative 371) BILIRUBIN UA (BEAKER) (test code = Negative Negative 462) BLOOD UA (BEAKER) (test code = 461) Small Negative A NITRITE UA (BEAKER) (test code = Negative Negative 465) LEUKOCYTE ESTERASE UA (BEAKER) Small Negative A (test code = 466) UROBILINOGEN UA (BEAKER) (test code 0.2 mg/dL 0.2-1.0 = 463) RBC UA (BEAKER) (test code = 519) 1 /HPF WBC UA (BEAKER) (test code = 520) 10 /HPF BACTERIA (BEAKER) (test code = 517) Few MUCUS (BEAKER) (test code = 1574) Few SQUAMOUS EPITHELIAL (BEAKER) (test < /HPF code = 516) SOURCE(BEAKER) (test code = 2795) Transmission Superintendent ID - [auto]Transmission Superintendent ID - juanT4, [id number] 10:35:00 Test Item Value Reference Range Interpretation Comments Free T4 (test code = 0.85 ng/dL 0.7-1.48 3024-7) NOLAN (test code = NOLAN) Transmission Superintendent ID - JADA Smith Lab Interpretation (test Normal code = 81016-2) [facility] HospitalT4, [id number] 10:35:00 Test Item Value Reference Range Interpretation Comments FREE T4 (BEAKER) (test code = 655) 0.85 ng/dL 0.70-1.48 Transmission Superintendent ID - JADA FType and screen, [id number] 10:30:00 Test Item Value Reference Range Interpretation Comments ABO/RH AUTOMATED (BEAKER) (test O POSITIVE code = 2260) Ab Scrn (test code = 890-4) POSITIVE Echo 2 [facility] HospitalHaptoglobin2020-05-04 10:18:00 Test Item Value Reference Range Interpretation Comments Haptoglobin (test code = <8 14-258 L 4542-7) ONLAN (test code = NOLAN) Transmission Superintendent ID - JADA Smith Lab Interpretation (test Abnormal code = 32039-6) [facility] HospitalHAPTOGLOBIN2020-05-04 10:18:00 Test Item Value Reference Range Interpretation Comments HAPTOGLOBIN (BEAKER) (test code = < mg/dL 14-258 L 366) Transmission Superintendent ID - JADA FRAD, CHEST, 1 VIEW, NON [id number] 10:06:00Reason for exam:->pneumoniaShould this be performed at the bedside?->YesFINAL REPORT INDICATION: pneumonia COMPARISON: July 08, 2019 TECHNIQUE: Single frontal view of the chest. FINDINGS: Lungs and pleura: Clear lungs. No effusion.Heart and mediastinum: Normal heart size. Unremarkable mediastinal contours.Osseous structures: No acute abnormality.Other: None. IMPRESSION: No acute intrathoracic abnormality. Signed: Cristina Duggan MDReport Verified Date/Time: 12/22/2019 10:06:04 Reading Location: [facility] Radiology Reading Room XR chest 1 view portable / [id number] 10:06:00 Interface, External Ris In - 12/22/2019 10:08 AM CDTFINAL REPORT INDICATION: pneumonia COMPARISON: July 08, 2019 TECHNIQUE: Single frontal view of the chest. FINDINGS: Lungs and pleura: Clear lungs. No effusion.Heart and mediastinum: Normal heart size. Unremarkable mediastinal contours.Osseous structures: No acute abnormality.Other: None. IMPRESSION: No acute intrathoracicabnormality. Signed: Cristina Duggan Verified Date/Time: 12/22/2019 10:06:04 Reading Location: [facility] Radiology Reading Room Electronically signed by: CRISTINA DUGGAN MD on 0 12/22/2019 10:06 [facility] CenterFer[facility] 09:59:00 Test Item Value Reference Range Interpretation Comments Ferritin (test code = >00109.00 5-275 H 2276-4) NOLAN (test code = NOLAN) Transmission Superintendent ID - NTP Lab Interpretation (test Abnormal code = 31556-4) [facility] HospitalTSH/Free T4 If [id number] 09:59:00 Test Item Value Reference Range Interpretation Comments TSH (test code = 0.276 0.350- 4.940 uIU/mL L 27817-4) NOLAN (test code = NOLAN) Transmission Superintendent ID - NTP Lab Interpretation (test Abnormal code = 34625-6) [facility] HospitalFERRITIN2020-05-04 09:59:00 Test Item Value Reference Range Interpretation Comments FERRITIN (BEAKER) (test code = 361) > ng/mL 5.00-275.00 H Transmission Superintendent ID - NTPTSH/FREE T4 IF [id number] 09:59:00 Test Item Value Reference Range Interpretation Comments THYROID STIMULATING HORMONE 0.276 uIU/mL 0.350-4.940 L (BEAKER) (test code = 772) Transmission Superintendent ID - NTPVitamin B12 and [id number] 09:57:00 Test Item Value Reference Range Interpretation Comments Vitamin B12 (test code = 788 pg/mL 601-639 0628-9) Folate (test code = 2284-8) 6.00 ng/mL >=7.00 L NOLAN (test code = NOLAN) Transmission Superintendent ID - NTP Lab Interpretation (test Abnormal code = 95469-3) [facility] HospitalVITAMIN B12 AND [id number] 09:57:00 Test Item Value Reference Range Interpretation Comments VITAMIN B12 (BEAKER) (test code = 788 pg/mL 213-816 774) FOLATE (BEAKER) (test code = 362) 6.00 ng/mL >=7.00 L Transmission Superintendent ID - JTGZeiljqgy0030-98-48 09:27:00 Test Item Value Reference Range Interpretation Comments Cortisol, Total (test code 20.4 ug/dL 3.7-19.4 H = 2755) NOLAN (test code = NOLAN) Transmission Superintendent ID - NTP Lab Interpretation (test Abnormal code = 97469-6) [facility] HospitalCORTISOL2020-05-04 09:27:00 Test Item Value Reference Range Interpretation Comments CORTISOL, TOTAL (BEAKER) (test 20.4 ug/dL 3.7-19.4 H code = 2755) Transmission Superintendent ID - NTPTROPONIN [id number] 09:22:00 Test Item Value Reference Range Interpretation Comments TROPONIN I (BEAKER) (test code = 0.44 ng/mL 0.00-0.03 397) Troponin I (TnI) levels must be interpreted [...] failure, acidosis, acute neurological disease, and persistent tachyarrhythmia.Transmission Superintendent ID - JADA FComprehensive metabolic [id number] 09:19:00 Test Item Value Reference Range Interpretation Comments Protein, Total (test 9.2 6.0- 8.3 gm/dL H Speci men code = 2885-2) slightly hemolyzed Albumin (test code = 3.1 g/dL 3.5-5 [place] [address]-2) slightly hemolyzed Alkaline Phosphatase 162 U/L 40-150 H (test code = 6768-6) Total Bilirubin (test 6.0 mg/dL 0.2-1.2 H Specim en code = 1975-2) slightly hemolyzed Sodium (test code = 135 meq/L 136-145 L 2951-2) Potassium (test code 4.9 meq/L 3.5-5.1 Specime n = 2823-3) slightly hemolyzed Chloride (test code = 109 meq/L 98-107 H 2075-0) CO2 (test code = 17 meq/L 22-29 L 2028-9) BUN (test code = 46 mg/dL 7-21 H 3094-0) Creatinine (test code 1.32 mg/dL 0.57-1.25 H Specim en = 2160-0) slightly hemolyzed Glucose (test code = 131 mg/dL 70-105 H 2345-7) Calcium (test code = 8.3 mg/dL 8.4-10.2 L 22796-1) AST (test code = 648 U/L 5-34 H Specimen 1920-8) slightly hemolyzed ALT (test code = 188 U/L 6-55 H Specimen 1742-6) slightly hemolyzed EGFR (test code = 54 mL/min/1.73 [place] [address]-9) NOT ACCURATE CREATININE CLEARANCE IN PREDICTING GLOMERULAR FILTRATION RATE . ESTIMATED GFR I S NOT APPLICABLE FOR DIALYSIS PATIENTS. NOLAN (test code = NOLAN) Transmission Superintendent ID - JADA Shultz moderately icteric Lab Interpretation Abnormal (test code = 98422-7) [facility] HospitalAmylase2020-05-04 09:19:00 Test Item Value Reference Range Interpretation Comments Amylase (test code = 20 U/L 25-125 L Specime n 1798-8) slightly hemolyzed NOLAN (test code = NOLAN) Transmission Superintendent ID - JADA PARRApecimelasha moderately icteric Lab Interpretation Abnormal (test code = 18117-8) [facility] HospitalLactate dehydrogenase (LDH)2019-12-22 09:19:00 Test Item Value Reference Range Interpretation Comments LDH (test code = 2132 U/L 125-220 H Specimen 2532-0) slightly hemolyzed NOLAN (test code = NOLAN) Transmission Superintendent ID - JADA F Lab Interpretation Abnormal (test code = 47303-6) [facility] HospitalLipase2020-05-04 09:19:00 Test Item Value Reference Range Interpretation Comments Lipase (test code = 13 U/L 8-78 3040-3) NOLAN (test code = NOLAN) Transmission Superintendent ID Akilah JASSO FSpecimen moderately icteric Lab Interpretation (test Normal code = 23531-8) [facility] HospitalMAGNESIUM2020-05-04 09:19:00 Test Item Value Reference Range Interpretation Comments MAGNESIUM (BEAKER) 2.1 mg/dL 1.6-2.6 Specimen slightly (test code = 627) hemolyzed Transmission Superintendent ID - JADA FCOMPREHENSIVE METABOLIC [id number] 09:19:00 Test Item Value Reference Range Interpretation Comments TOTAL PROTEIN 9.2 gm/dL 6.0-8.3 H Specimen sligh tly (BEAKER) (test code = hemoly zed 770) ALBUMIN (BEAKER) 3.1 g/dL 3.5-5.0 L Specimen sl ightly (test code = 1145) hemolyzed ALKALINE PHOSPHATASE 162 U/L 40-150 H (BEAKER) (test code = 346) BILIRUBIN TOTAL 6.0 mg/dL 0.2-1.2 H Specimen sli ghtly (BEAKER) (test code = hemoly zed 377) SODIUM (BEAKER) (test 135 meq/L 136-145 L code = 381) POTASSIUM (BEAKER) 4.9 meq/L 3.5-5.1 Specimen slightly (test code = 379) hemolyzed CHLORIDE (BEAKER) 109 meq/L 98-107 H (test code = 382) CO2 (BEAKER) (test 17 meq/L 22-29 L code = 355) BLOOD UREA NITROGEN 46 mg/dL 7-21 H (BEAKER) (test code = 354) CREATININE (BEAKER) 1.32 mg/dL 0.57-1.25 H Specimen slightly (test code = 358) hemolyzed GLUCOSE RANDOM 131 mg/dL 70-105 H (BEAKER) (test code = 652) CALCIUM (BEAKER) 8.3 mg/dL 8.4-10.2 L (test code = 697) AST (SGOT) (BEAKER) 648 U/L 5-34 H Specimen slightly (test code = 353) hemolyzed ALT (SGPT) (BEAKER) 188 U/L 6-55 H Specimen slightly (test code = 347) hemolyzed EGFR (BEAKER) (test 54 mL/min/1.73 ESTIMA DUNCAN GFR IS code = 1092) sq m NOT ACCURATE CREATININE CLEARANCE IN PREDICTING GLOMERULAR FILTRATION RATE . ESTIMATED GFR I S NOT APPLICABLE FOR DIALYSIS PATIEN TS. Transmission Superintendent ID Akilah JASSO FSpecimen moderately [id number] 09:19:00 Test Item Value Reference Range Interpretation Comments AMYLASE (BEAKER) (test 20 U/L 25-125 L Speci men slightly code = 349) hemolyzed Transmission Superintendent ID Akilah PARRApecimen moderately [id number] 09:19:00 Test Item Value Reference Range Interpretation Comments LIPASE (BEAKER) (test code = 749) 13 U/L 8-78 Transmission Superintendent ID Akilah PARRApecimen moderately ictericLACTATE DEHYDROGENASE (LDH) 2019-12-22 09:19:00 Test Item Value Reference Range Interpretation Comments LACTATE DEHYDROGENASE 2132 U/L 125-220 H Specim en slightly (BEAKER) (test code = hemoly zed 635) Transmission Superintendent ID Akilah JASSO BPmqgnrhcxbnzl7826-18-13 09:17:00 Test Item Value Reference Range Interpretation Comments Procalcitonin (test code = 7.49 ng/mL <0.05 H 76745-5) NOLAN (test code = NOLAN) SEPSIS RISK (ng/mL)Low: 0.05-0.50Intermedi ate: 0.51-2.00High: >=2.01 Lab Interpretation (test Abnormal code = 93293-4) [facility] HospitalPROCALCITONIN2020-05-04 09:17:00 Test Item Value Reference Range Interpretation Comments PROCALCITONIN (BEAKER) (test code 7.49 ng/mL <0.05 H = 3036) SEPSIS RISK (ng/mL)Low: 0.05-0.50Intermediate: 0.51-2.00High: >=2.01Iron, TIBC, % sat. (without ferritin)2019-12-22 09:05:00 Test Item Value Reference Range Interpretation Comments Iron (test code = 2498-4) 147.0 ug/dL 40-160 TIBC (test code = 2500-7) 93 ug/dL 250-450 L Iron % Saturation (test 158 % 20-55 H code = 2502-3) NOLAN (test code = NOLAN) Transmission Superintendent ID - NTP Lab Interpretation (test Abnormal code = 29767-9) [facility] HospitalIRON, TIBC, % SAT. (WITHOUT FERRITIN)2019-12-22 09:05:00 Test Item Value Reference Range Interpretation Comments IRON (BEAKER) (test code = 547) 147.0 ug/dL 40.0-160.0 TOTAL IRON BINDING CAPACITY 93 ug/dL 250-450 L (BEAKER) (test code = 769) IRON % SATURATION (2) (BEAKER) 158 % 20-55 H (test code = 2590) Transmission Superintendent ID - NTPReticulocyte [id number] 09:01:00 Test Item Value Reference Range Interpretation Comments % Retic (test code = >30.0 0.5-1.7 H 77997-0) NOLAN (test code = NOLAN) Transmission Superintendent ID - 6000 Lab Interpretation (test Abnormal code = 65214-5) [facility] HospitalLactic acid, [id number] 09:01:00 Test Item Value Reference Range Interpretation Comments Lactate, Venous (test 1.65 mmol/L 0.5-2.2 Specim en code = 2872) slightly hemolyzed NOLAN (test code = NOLAN) Transmission Superintendent ID - JADA PARRApecimen moderately icteric Lab Interpretation Normal (test code = 44230-2) [facility] HospitalLACTIC ACID, [id number] 09:01:00 Test Item Value Reference Range Interpretation Comments LACTATE BLOOD VENOUS 1.65 mmol/L 0.50-2.20 Specime n slightly (2) (BEAKER) (test hemolyzed code = 2872) Transmission Superintendent ID - JADA PARRApecimen moderately ictericHEMOGLOBIN AND HEMATOCRIT 2019-12-22 09:01:00 Test Item Value Reference Range Interpretation Comments HEMOGLOBIN (BEAKER) (test code = 3.9 GM/DL 11.2-15.7 LL 410) HEMATOCRIT (BEAKER) (test code = 11.6 % 34.1-44.9 L 411) Transmission Superintendent ID - 6000RETICULOCYTE [id number] 09:01:00 Test Item Value Reference Range Interpretation Comments RETICULOCYTE COUNT PCT (BEAKER) (test > % 0.5-1.7 H code = 575) Transmission Superintendent ID - [id number] 08:55:00 Test Item Value Reference Range Interpretation Comments PTT (test code = 19192-4) 54.4 22.5- 36.0 seconds H Lab Interpretation (test code = Abnormal 44438-7) [facility] HospitalAPTT2020-05-04 08:55:00 Test Item Value Reference Range Interpretation Comments PARTIAL THROMBOPLASTIN TIME 54.4 seconds 22.5-36.0 H (BEAKER) (test code = 760) [id number] 08:54:00 Test Item Value Reference Range Interpretation Comments Fibrinogen (test code = 3255-7) 521 mg/dl 225-434 H Lab Interpretation (test code = Abnormal 74016-5) [facility] HospitalProthrombin time/[id number] 08:54:00 Test Item Value Reference Range Interpretation Comments Protime (test code = 20.7 11.9- 14.2 H 5902-2) seconds INR (test code = 1.8 <=5.9 6301-6) NOLAN (test code = NOLAN) Effective 01/15/2019: PT Reference Range ChangeNew: 11.9-14.2 Previous: 11.7-14.7 RECOMMENDED COUMADIN/WARFARIN INR THERAPY RANGESSTANDARD DOSE: 2.0-3.0 Includes: PROPHYLAXIS for venous thrombosis, systemic embolization; TREATMENT for venous thrombosis and/or pulmonary embolus.HIGH RISK: Target INR is 2.5-3.5 for patients wiht mechanical heart valves. Lab Interpretation Abnormal (test code = 49277-3) [facility] HospitalPROTHROMBIN TIME/[id number] 08:54:00 Test Item Value Reference Range Interpretation Comments PROTIME (BEAKER) (test code = 20.7 seconds 11.9-14.2 H 759) INR (BEAKER) (test code = 370) 1.8 <=5.9 Effective 01/15/2019: PT Reference Range ChangeNew: 11.9-14.2 Previous: 11.7- 14.7RECOMMENDED COUMADIN/WARFARIN INR THERAPY RANGESSTANDARD DOSE: 2.0-3.0 Includes: PROPHYLAXIS for venous thrombosis, systemic embolization; TREATMENT for venous thrombosis and/or pulmonary embolus.HIGH RISK: Target INR is2.5-3.5 for patients wiht mechanical heart valves.[id number] 08:54:00 Test Item Value Reference Range Interpretation Comments FIBRINOGEN LEVEL (BEAKER) (test 521 mg/dl 225-434 H code = 658) CBC W/PLT COUNT & AUTO [id number] 10:53:00 Test Item Value Reference Range Interpretation Comments WHITE BLOOD CELL COUNT (BEAKER) 25.1 K/ L 3.5-10.5 H (test code = 775) RED BLOOD CELL COUNT (BEAKER) 2.19 M/ L 3.93-5.22 L (test code = 761) HEMOGLOBIN (BEAKER) (test code = 7.1 GM/DL 11.2-15.7 L 410) HEMATOCRIT (BEAKER) (test code = 21.5 % 34.1-44.9 L 411) MEAN CORPUSCULAR VOLUME (BEAKER) 98.2 fL 79.4-94.8 H (test code = 753) MEAN CORPUSCULAR HEMOGLOBIN 32.4 pg 25.6-32.2 H (BEAKER) (test code = 751) MEAN CORPUSCULAR HEMOGLOBIN CONC 33.0 GM/DL 32.2-35.5 (BEAKER) (test code = 752) RED CELL DISTRIBUTION WIDTH 23.7 % 11.7-14.4 H (BEAKER) (test code = 412) PLATELET COUNT (BEAKER) (test 169 K/CU MM 150-450 code = 756) MEAN PLATELET VOLUME (BEAKER) 11.2 fL 9.4-12.3 (test code = 754) NUCLEATED RED BLOOD CELLS 2 /100 WBC 0-0 H (BEAKER) (test code = 413) (CELLAVISION MANUAL DIFF)2019-09-30 10:53:00 Test Item Value Reference Range Interpretation Comments NEUTROPHILS - REL 67 % (CELLAVISION)(BEAKER) (test code = 2816) LYMPHOCYTES - REL 22 % (CELLAVISION)(BEAKER) (test code = 2817) MONOCYTES - REL 9 % (CELLAVISION)(BEAKER) (test code = 2818) EOSINOPHILS - REL 2 % (CELLAVISION)(BEAKER) (test code = 2819) NEUTROPHILS - ABS 16.82 K/ul 1.56-6.13 H (CELLAVISION)(BEAKER) (test code = 2830) LYMPHOCYTES - ABS 5.52 K/ul 1.18-3.74 H (CELLAVISION)(BEAKER) (test code = 2831) MONOCYTES - ABS 2.26 K/uL 0.24-0.36 H (CELLAVISION)(BEAKER) (test code = 2832) EOSINOPHILS - ABS 0.50 K/uL 0.04-0.36 H (CELLAVISION)(BEAKER) (test code = 2834) TOTAL COUNTED (BEAKER) (test code 100 = 1351) WBC MORPHOLOGY (BEAKER) (test Normal code = 487) PLT MORPHOLOGY (BEAKER) (test Normal code = 486) POLYCHROMATOPHILLIC RBCS(BEAKER) 3+ many (test code = 478) ANISOCYTOSIS (BEAKER) (test code 3+ many = 961) MACROCYTES (BEAKER) (test code = 3+ many 964) POIKILOCYTES (BEAKER) (test code 2+ moderate = 966) TARGET CELLS (BEAKER) (test code 1+ few = 480) SICKLE CELLS (BEAKER) (test code 1+ few = 767) MATTHEWS-JOLLY BODIES (BEAKER) 1+ few (test code = 475) ARTIFACT (CELLAVISION)(BEAKER) Present (test code = 3432) PAPPENHEIMER 1+ few (CELLAVISION)(BEAKER) (test code = 3435) PLATELET CONCENTRATION Adequate (CELLAVISION)(BEAKER) (test code = 3438) Transmission Superintendent ID - Amber OverholtUser comments: Slide comments:CBC W/PLT COUNT & AUTO [id number] 11:14:00 Test Item Value Reference Range Interpretation Comments WHITE BLOOD CELL COUNT (BEAKER) 23.0 K/ L 3.5-10.5 H (test code = 775) RED BLOOD CELL COUNT (BEAKER) 2.11 M/ L 3.93-5.22 L (test code = 761) HEMOGLOBIN (BEAKER) (test code = 6.7 GM/DL 11.2-15.7 L 410) HEMATOCRIT (BEAKER) (test code = 21.0 % 34.1-44.9 L 411) MEAN CORPUSCULAR VOLUME (BEAKER) 99.5 fL 79.4-94.8 H (test code = 753) MEAN CORPUSCULAR HEMOGLOBIN 31.8 pg 25.6-32.2 (BEAKER) (test code = 751) MEAN CORPUSCULAR HEMOGLOBIN CONC 31.9 GM/DL 32.2-35.5 L (BEAKER) (test code = 752) RED CELL DISTRIBUTION WIDTH 25.0 % 11.7-14.4 H (BEAKER) (test code = 412) PLATELET COUNT (BEAKER) (test 146 K/CU MM 150-450 L code = 756) MEAN PLATELET VOLUME (BEAKER) 11.1 fL 9.4-12.3 (test code = 754) NUCLEATED RED BLOOD CELLS 4 /100 WBC 0-0 H (BEAKER) (test code = 413) (CELLAVISION MANUAL DIFF)2019-09-29 11:14:00 Test Item Value Reference Range Interpretation Comments NEUTROPHILS - REL 62 % (CELLAVISION)(BEAKER) (test code = 2816) LYMPHOCYTES - REL 23 % (CELLAVISION)(BEAKER) (test code = 2817) MONOCYTES - REL 14 % (CELLAVISION)(BEAKER) (test code = 2818) EOSINOPHILS - REL 1 % (CELLAVISION)(BEAKER) (test code = 2819) ATYPICAL LYMPHOCYTES - REL 1 % 0-0 H (CELLAVISION)(BEAKER) (test code = 2829) NEUTROPHILS - ABS 14.26 K/ul 1.56-6.13 H (CELLAVISION)(BEAKER) (test code = 2830) LYMPHOCYTES - ABS 5.29 K/ul 1.18-3.74 H (CELLAVISION)(BEAKER) (test code = 2831) MONOCYTES - ABS 3.22 K/uL 0.24-0.36 H (CELLAVISION)(BEAKER) (test code = 2832) EOSINOPHILS - ABS 0.23 K/uL 0.04-0.36 (CELLAVISION)(BEAKER) (test code = 0474) ATYPICAL LYMPHOCYTES - ABS 0.23 K/uL 0.00-0.00 H (CELLAVISION)(BEAKER) (test code = 2858) TOTAL COUNTED (BEAKER) (test code 100 = 1351) MANUAL NRBC PER 100 CELLS 7 /100 WBC 0-0 H (BEAKER) (test code = 1353) SMUDGE CELLS (BEAKER) (test code Present = 1371) GIANT PLATELETS (BEAKER) (test Present code = 313) POLYCHROMATOPHILLIC RBCS(BEAKER) 1+ few (test code = 478) ANISOCYTOSIS (BEAKER) (test code 2+ moderate = 961) TARGET CELLS (BEAKER) (test code 1+ few = 480) SICKLE CELLS (BEAKER) (test code 1+ few = 767) ARTIFACT (CELLAVISION)(BEAKER) Present (test code = 3432) PLATELET CONCENTRATION Decreased (CELLAVISION)(BEAKER) (test code = 3438) Transmission Superintendent ID - Flavia Neil comments: Slide comments:VANCOMYCIN LEVEL, TROUGH 2019-09-28 12:48:00 Test Item Value Reference Range Interpretation Comments VANCOMYCIN TROUGH (BEAKER) (test 10.5 ug/mL 10.0-20.0 code = 522) Transmission Superintendent ID - DARRELL WCatheter Tip [id number] 08:49:00 Test Item Value Reference Range Interpretation Comments Result (test code = 6463-4) [facility]CATHE[facility] [id number] 08:49:00 Test Item Value Reference Range Interpretation Comments CULTURE (BEAKER) (test code = 1095) No growth CBC W/PLT COUNT & AUTO [id number] 07:43:00 Test Item Value Reference Range Interpretation Comments WHITE BLOOD CELL COUNT (BEAKER) 17.5 K/ L 3.5-10.5 H (test code = 775) RED BLOOD CELL COUNT (BEAKER) 2.07 M/ L 3.93-5.22 L (test code = 761) HEMOGLOBIN (BEAKER) (test code = 6.6 GM/DL 11.2-15.7 L 410) HEMATOCRIT (BEAKER) (test code = 20.7 % 34.1-44.9 L 411) MEAN CORPUSCULAR VOLUME (BEAKER) 100.0 fL 79.4-94.8 H (test code = 753) MEAN CORPUSCULAR HEMOGLOBIN 31.9 pg 25.6-32.2 (BEAKER) (test code = 751) MEAN CORPUSCULAR HEMOGLOBIN CONC 31.9 GM/DL 32.2-35.5 L (BEAKER) (test code = 752) RED CELL DISTRIBUTION WIDTH 27.2 % 11.7-14.4 H (BEAKER) (test code = 412) PLATELET COUNT (BEAKER) (test 132 K/CU MM 150-450 L code = 756) MEAN PLATELET VOLUME (BEAKER) 10.7 fL 9.4-12.3 (test code = 754) NUCLEATED RED BLOOD CELLS 17 /100 WBC 0-0 H (BEAKER) (test code = 413) (CELLAVISION MANUAL DIFF)2019-09-28 07:43:00 Test Item Value Reference Range Interpretation Comments NEUTROPHILS - REL 55 % (CELLAVISION)(BEAKER) (test code = 2816) LYMPHOCYTES - REL 33 % (CELLAVISION)(BEAKER) (test code = 2817) MONOCYTES - REL 11 % (CELLAVISION)(BEAKER) (test code = 2818) EOSINOPHILS - REL 1 % (CELLAVISION)(BEAKER) (test code = 2819) NEUTROPHILS - ABS 9.63 K/ul 1.56-6.13 H (CELLAVISION)(BEAKER) (test code = 2830) LYMPHOCYTES - ABS 5.78 K/ul 1.18-3.74 H (CELLAVISION)(BEAKER) (test code = 2831) MONOCYTES - ABS 1.93 K/uL 0.24-0.36 H (CELLAVISION)(BEAKER) (test code = 2832) EOSINOPHILS - ABS 0.18 K/uL 0.04-0.36 (CELLAVISION)(BEAKER) (test code = 2834) TOTAL COUNTED (BEAKER) (test code 100 = 1351) MANUAL NRBC PER 100 CELLS 17 /100 WBC 0-0 H (BEAKER) (test code = 1353) WBC MORPHOLOGY (BEAKER) (test Normal code = 487) PLT MORPHOLOGY (BEAKER) (test Normal code = 486) POLYCHROMATOPHILLIC RBCS(BEAKER) 3+ many (test code = 478) ANISOCYTOSIS (BEAKER) (test code 3+ many = 961) MACROCYTES (BEAKER) (test code = 3+ many 964) POIKILOCYTES (BEAKER) (test code 2+ moderate = 966) TARGET CELLS (BEAKER) (test code 1+ few = 480) SICKLE CELLS (BEAKER) (test code 2+ moderate = 767) MATTHEWS-JOLLY BODIES (BEAKER) 1+ few (test code = 475) ARTIFACT (CELLAVISION)(BEAKER) Present (test code = 3432) PAPPENHEIMER 1+ few (CELLAVISION)(BEAKER) (test code = 3435) PLATELET CONCENTRATION Decreased (CELLAVISION)(BEAKER) (test code = 3438) Transmission Superintendent ID - Amber OverholtUser comments: Slide comments:CBC W/PLT COUNT & AUTO [id number] 13:45:00 Test Item Value Reference Range Interpretation Comments WHITE BLOOD CELL COUNT (BEAKER) 15.4 K/ L 3.5-10.5 H (test code = 775) RED BLOOD CELL COUNT (BEAKER) 1.96 M/ L 3.93-5.22 L (test code = 761) HEMOGLOBIN (BEAKER) (test code = 6.3 GM/DL 11.2-15.7 L 410) HEMATOCRIT (BEAKER) (test code = 19.7 % 34.1-44.9 L 411) MEAN CORPUSCULAR VOLUME (BEAKER) 100.5 fL 79.4-94.8 H (test code = 753) MEAN CORPUSCULAR HEMOGLOBIN 32.1 pg 25.6-32.2 (BEAKER) (test code = 751) MEAN CORPUSCULAR HEMOGLOBIN CONC 32.0 GM/DL 32.2-35.5 L (BEAKER) (test code = 752) RED CELL DISTRIBUTION WIDTH 29.2 % 11.7-14.4 H (BEAKER) (test code = 412) PLATELET COUNT (BEAKER) (test 128 K/CU MM 150-450 L code = 756) MEAN PLATELET VOLUME (BEAKER) 11.0 fL 9.4-12.3 (test code = 754) NUCLEATED RED BLOOD CELLS 37 /100 WBC 0-0 H (BEAKER) (test code = 413) (CELLAVISION MANUAL DIFF)[id number] 13:45:00 Test Item Value Reference Range Interpretation Comments NEUTROPHILS - REL 51 % (CELLAVISION)(BEAKER) (test code = 2816) LYMPHOCYTES - REL 39 % (CELLAVISION)(BEAKER) (test code = 2817) MONOCYTES - REL 6 % (CELLAVISION)(BEAKER) (test code = 2818) EOSINOPHILS - REL 3 % (CELLAVISION)(BEAKER) (test code = 2819) NEUTROPHILS - ABS 7.85 K/ul 1.56-6.13 H (CELLAVISION)(BEAKER) (test code = 2830) LYMPHOCYTES - ABS 6.01 K/ul 1.18-3.74 H (CELLAVISION)(BEAKER) (test code = 2831) MONOCYTES - ABS 0.92 K/uL 0.24-0.36 H (CELLAVISION)(BEAKER) (test code = 2832) EOSINOPHILS - ABS 0.46 K/uL 0.04-0.36 H (CELLAVISION)(BEAKER) (test code = 2834) TOTAL COUNTED (BEAKER) (test code 100 = 1351) MANUAL NRBC PER 100 CELLS 52 /100 WBC 0-0 H (BEAKER) (test code = 1353) WBC MORPHOLOGY (BEAKER) (test Normal code = 487) PLT MORPHOLOGY (BEAKER) (test Normal code = 486) POLYCHROMATOPHILLIC RBCS(BEAKER) 3+ many (test code = 478) HYPOCHROMIA (BEAKER) (test code = 2+ moderate 963) TARGET CELLS (BEAKER) (test code 2+ moderate = 480) SICKLE CELLS (BEAKER) (test code 2+ moderate = 767) ARTIFACT (CELLAVISION)(BEAKER) Present (test code = 3432) PLATELET CONCENTRATION Decreased (CELLAVISION)(BEAKER) (test code = 3438) Transmission Superintendent ID - Lisa Monae comments: Slide comments:BASIC METABOLIC PANEL 2019-09-27 07:43:00 Test Item Value Reference Range Interpretation Comments SODIUM (BEAKER) 140 meq/L 136-145 (test code = 381) POTASSIUM (BEAKER) 3.8 meq/L 3.5-5.1 (test code = 379) CHLORIDE (BEAKER) 108 meq/L 98-107 H (test code = 382) CO2 (BEAKER) (test 25 meq/L 22-29 code = 355) BLOOD UREA NITROGEN 4 mg/dL 7-21 L (BEAKER) (test code = 354) CREATININE (BEAKER) 0.56 mg/dL 0.57-1.25 L (test code = 358) GLUCOSE RANDOM 97 mg/dL 70-105 (BEAKER) (test code = 652) CALCIUM (BEAKER) 8.8 mg/dL 8.4-10.2 (test code = 697) EGFR (BEAKER) (test 145 mL/min/1.73 ESTIM ATED GFR IS code = 1092) sq m NOT ACCURATE CREATININE CLEARANCE IN PREDICTING GLOMERULAR FILTRATION RATE . ESTIMATED GFR I S NOT APPLICABLE FOR DIALYSIS PATIEN TS. Transmission Superintendent ID - PIAYA LSpecimen slightly ictericCBC W/PLT COUNT & AUTO [id number] 13:34:00 Test Item Value Reference Range Interpretation Comments WHITE BLOOD CELL COUNT (BEAKER) 16.4 K/ L 3.5-10.5 H (test code = 775) RED BLOOD CELL COUNT (BEAKER) 2.04 M/ L 3.93-5.22 L (test code = 761) HEMOGLOBIN (BEAKER) (test code = 6.6 GM/DL 11.2-15.7 L 410) HEMATOCRIT (BEAKER) (test code = 20.9 % 34.1-44.9 L 411) MEAN CORPUSCULAR VOLUME (BEAKER) 102.5 fL 79.4-94.8 H (test code = 753) MEAN CORPUSCULAR HEMOGLOBIN 32.4 pg 25.6-32.2 H (BEAKER) (test code = 751) MEAN CORPUSCULAR HEMOGLOBIN CONC 31.6 GM/DL 32.2-35.5 L (BEAKER) (test code = 752) RED CELL DISTRIBUTION WIDTH 30.8 % 11.7-14.4 H (BEAKER) (test code = 412) PLATELET COUNT (BEAKER) (test 151 K/CU MM 150-450 code = 756) MEAN PLATELET VOLUME (BEAKER) 10.5 fL 9.4-12.3 (test code = 754) NUCLEATED RED BLOOD CELLS 60 /100 WBC 0-0 H (BEAKER) (test code = 413) (CELLAVISION MANUAL DIFF)2019-09-26 13:34:00 Test Item Value Reference Range Interpretation Comments NEUTROPHILS - REL 46 % (CELLAVISION)(BEAKER) (test code = 2816) LYMPHOCYTES - REL 34 % (CELLAVISION)(BEAKER) (test code = 2817) MONOCYTES - REL 19 % (CELLAVISION)(BEAKER) (test code = 2818) EOSINOPHILS - REL 1 % (CELLAVISION)(BEAKER) (test code = 2819) NEUTROPHILS - ABS 7.54 K/ul 1.56-6.13 H (CELLAVISION)(BEAKER) (test code = 2830) LYMPHOCYTES - ABS 5.58 K/ul 1.18-3.74 H (CELLAVISION)(BEAKER) (test code = 2831) MONOCYTES - ABS 3.12 K/uL 0.24-0.36 H (CELLAVISION)(BEAKER) (test code = 2832) EOSINOPHILS - ABS 0.16 K/uL 0.04-0.36 (CELLAVISION)(BEAKER) (test code = 2834) TOTAL COUNTED (BEAKER) (test code 100 = 1351) MANUAL NRBC PER 100 CELLS 73 /100 WBC 0-0 H (BEAKER) (test code = 1353) WBC MORPHOLOGY (BEAKER) (test Normal code = 487) GIANT PLATELETS (BEAKER) (test Present code = 313) POLYCHROMATOPHILLIC RBCS(BEAKER) 3+ many (test code = 478) HYPOCHROMIA (BEAKER) (test code = 2+ moderate 963) ANISOCYTOSIS (BEAKER) (test code 3+ many = 961) MACROCYTES (BEAKER) (test code = 3+ many 964) POIKILOCYTES (BEAKER) (test code 2+ moderate = 966) TARGET CELLS (BEAKER) (test code 2+ moderate = 480) SCHISTOCYTES (BEAKER) (test code 1+ few = 765) SICKLE CELLS (BEAKER) (test code 2+ moderate = 767) OVALOCYTES (BEAKER) (test code = 1+ few 477) TEAR DROP CELLS (BEAKER) (test 1+ few code = 481) BASOPHILIC STIPPLING (BEAKER) Present (test code = 473) ARTIFACT (CELLAVISION)(BEAKER) Present (test code = 3432) PAPPENHEIMER 1+ few (CELLAVISION)(BEAKER) (test code = 3435) PLATELET CONCENTRATION Adequate (CELLAVISION)(BEAKER) (test code = 3438) Transmission Superintendent ID - Jada Grisel comments: Slide comments: WBC: SEGMENTED WITH TOXIC GRANULATIONS PRESENTBASIC METABOLIC [id number] 06:47:00 Test Item Value Reference Range Interpretation Comments SODIUM (BEAKER) 141 meq/L 136-145 (test code = 381) POTASSIUM (BEAKER) 4.3 meq/L 3.5-5.1 Specimen slightly (test code = 379) hemolyzed CHLORIDE (BEAKER) 108 meq/L 98-107 H (test code = 382) CO2 (BEAKER) (test 27 meq/L 22-29 code = 355) BLOOD UREA NITROGEN 5 mg/dL 7-21 L (BEAKER) (test code = 354) CREATININE (BEAKER) 0.64 mg/dL 0.57-1.25 Specimen slightly (test code = 358) hemolyzed GLUCOSE RANDOM 114 mg/dL 70-105 H (BEAKER) (test code = 652) CALCIUM (BEAKER) 9.5 mg/dL 8.4-10.2 (test code = 697) EGFR (BEAKER) (test 125 mL/min/1.73 ESTIM ATED GFR IS code = 1092) sq m NOT ACCURATE CREATININE CLEARANCE IN PREDICTING GLOMERULAR FILTRATION RATE . ESTIMATED GFR I S NOT APPLICABLE FOR DIALYSIS PATIEN TS. Transmission Superintendent ID - THAO MSpecimen slightly ictericANG, REMOVAL OF TUNNELED CVC W/PORT 2019-09-25 11:46:00Reason for exam:->infectedAddendum BeginsREPORT STATUS:A Addendum:ANESTHESIA: Conscious sedation was provided by radiology nursing using constant hemodynamic monitoring for 30 minutes. Versed IV 0.5 mg, Dilaudid 2 mg. Signed: Lawrence Johnson MDReport Verified Date/Time: 09/25/2019 11:46:52 Reading Location: [place] [id number] Angio Body Reading RoomAddendum EndsFINAL REPORT PROCEDURE: Venous Port Removal CLINICAL HISTORY: infected [employer] OPERATOR: Lawrence Johnson DO, JD ANESTHESIA: Local lidocaine. RADIATION DOSE [...] a right IJV chest port. Signed: Lawrence Johnson MDReport Verified Date/Time: 09/25/2019 11:37:20 Reading Location: [place] [address] Angio Body Reading Room IR Port [id number] 11:37:00Interface, External Ris In - 09/25/2019 11:49 AM CSTAddendum BeginsREPORT STATUS:A Addendum:ANESTHESIA: Conscious sedation was provided by radiology nursing using constant hemodynamic monitoring for 30 minutes. Versed IV 0.5 mg, Dilaudid 2 mg. Signed: Lawrence Johnson MDReport Verified Date/Time: 09/25/2019 11:46:52 Reading Location: [place] [address] Angio Body Reading RoomAddendum EndsFINAL REPORT PROCEDURE: Venous Port Removal CLINICAL HISTORY: infected [employer] EQUIPMENT OPERATOR: Lawrence Johnson DO, JD ANESTHESIA: Local lidocaine. RADIATION DOSE INFORMATION: (Ka,r) 2 mGy. E stimated Blood Loss: < 5cc Samples: None. PROCEDURE: The risks, benefits, and alternatives to theprocedure were discussed with the patient. All questions were answered and written informed consentwas obtained. A universal timeout was performed prior [...] a right IJV chest port. Signed: Lawrence Johnson MDReport Verified Date/Time: 09/25/2019 11:37:20 Reading Location: [address] Body Reading Room [facility] W/PLT COUNT & AUTO [id number] 11:09:00 Test Item Value Reference Range Interpretation Comments WHITE BLOOD CELL COUNT 15.7 K/ L 3.5-10.5 H (BEAKER) (test code = 775) RED BLOOD CELL COUNT 1.70 M/ L 3.93-5.22 L (BEAKER) (test code = 761) HEMOGLOBIN (BEAKER) 5.7 GM/DL 11.2-15.7 LL (test code = 410) HEMATOCRIT (BEAKER) 17.8 % 34.1-44.9 L (test code = 411) MEAN CORPUSCULAR 104.7 fL 79.4-94.8 H VOLUME (BEAKER) (test code = 753) MEAN CORPUSCULAR 33.5 pg 25.6-32.2 H HEMOGLOBIN (BEAKER) (test code = 751) MEAN CORPUSCULAR 32.0 GM/DL 32.2-35.5 L HEMOGLOBIN CONC (BEAKER) (test code = 752) RED CELL DISTRIBUTION Unable to report due WIDTH (BEAKER) (test to [facility] RBC code = 412) population distribution. PLATELET COUNT 193 K/CU MM 150-450 (BEAKER) (test code = 756) MEAN PLATELET VOLUME 10.6 fL 9.4-12.3 (BEAKER) (test code = 754) NUCLEATED RED BLOOD 70 /100 WBC 0-0 H CELLS (BEAKER) (test code = 413) (CELLAVISION MANUAL DIFF)2019-09-25 11:09:00 Test Item Value Reference Range Interpretation Comments NEUTROPHILS - REL 33 % (CELLAVISION)(BEAKER) (test code = 2816) LYMPHOCYTES - REL 44 % (CELLAVISION)(BEAKER) (test code = 2817) MONOCYTES - REL 19 % (CELLAVISION)(BEAKER) (test code = 2818) EOSINOPHILS - REL 1 % (CELLAVISION)(BEAKER) (test code = 2819) BASOPHILS - REL 1 % (CELLAVISION)(BEAKER) (test code = 2820) MYELOCYTES - REL 1 % 0-0 H (CELLAVISION)(BEAKER) (test code = 2822) BANDS - REL (CELLAVISION)(BEAKER) 1 % 0-10 (test code = 2826) NEUTROPHILS - ABS 5.18 K/ul 1.56-6.13 (CELLAVISION)(BEAKER) (test code = 2830) LYMPHOCYTES - ABS 6.91 K/ul 1.18-3.74 H (CELLAVISION)(BEAKER) (test code = 2831) MONOCYTES - ABS 2.98 K/uL 0.24-0.36 H (CELLAVISION)(BEAKER) (test code = 2832) EOSINOPHILS - ABS 0.16 K/uL 0.04-0.36 (CELLAVISION)(BEAKER) (test code = 2834) BASOPHILS - ABS 0.16 K/uL 0.01-0.08 H (CELLAVISION)(BEAKER) (test code = 2835) MYELOCYTES-ABS 0.16 K/uL 0.00-0.00 H (CELLAVISION)(BEAKER) (test code = 2837) BANDS - ABS (CELLAVISION)(BEAKER) 0.16 K/uL 0.00-0.80 (test code = 2840) TOTAL COUNTED (BEAKER) (test code 100 = 1351) MANUAL NRBC PER 100 CELLS 71 /100 WBC 0-0 H (BEAKER) (test code = 1353) WBC MORPHOLOGY (BEAKER) (test Normal code = 487) PLT MORPHOLOGY (BEAKER) (test Normal code = 486) POLYCHROMATOPHILLIC RBCS(BEAKER) 3+ many (test code = 478) HYPOCHROMIA (BEAKER) (test code = 1+ few 963) ANISOCYTOSIS (BEAKER) (test code 3+ many = 961) MACROCYTES (BEAKER) (test code = 3+ many 964) POIKILOCYTES (BEAKER) (test code 2+ moderate = 966) TARGET CELLS (BEAKER) (test code 1+ few = 480) SICKLE CELLS (BEAKER) (test code 1+ few = 767) MATTHEWS-JOLLY BODIES (BEAKER) 1+ few (test code = 475) ARTIFACT (CELLAVISION)(BEAKER) Present (test code = 3432) PAPPENHEIMER 1+ few (CELLAVISION)(BEAKER) (test code = 3435) PLATELET CONCENTRATION Adequate (CELLAVISION)(BEAKER) (test code = 3438) Transmission Superintendent ID - [id number] ID - Amber OverholtUser comments: Slide comments:BASIC METABOLIC [id number] 10:16:00 Test Item Value Reference Range Interpretation Comments SODIUM (BEAKER) 141 meq/L 136-145 (test code = 381) POTASSIUM (BEAKER) 4.7 meq/L 3.5-5.1 Specimen slightly (test code = 379) hemolyzed CHLORIDE (BEAKER) 109 meq/L 98-107 H (test code = 382) CO2 (BEAKER) (test 29 meq/L 22-29 code = 355) BLOOD UREA NITROGEN 6 mg/dL 7-21 L (BEAKER) (test code = 354) CREATININE (BEAKER) 0.59 mg/dL 0.57-1.25 Specimen slightly (test code = 358) hemolyzed GLUCOSE RANDOM 100 mg/dL 70-105 (BEAKER) (test code = 652) CALCIUM (BEAKER) 9.5 mg/dL 8.4-10.2 (test code = 697) EGFR (BEAKER) (test 137 mL/min/1.73 ESTIM ATED GFR IS code = 1092) sq m NOT ACCURATE CREATININE CLEARANCE IN PREDICTING GLOMERULAR FILTRATION RATE . ESTIMATED GFR I S NOT APPLICABLE FOR DIALYSIS PATIEN TS. Transmission Superintendent ID - LMSpecimen slightly ictericPT/[id number] 05:53:00 Test Item Value Reference Range Interpretation Comments Protime (test code = 14.4 11.9- 14.2 H 5902-2) seconds INR (test code = 1.2 <=5.9 6301-6) PTT (test code = 31.4 22.5- 36.0 84229-1) seconds NOLAN (test code = NOLAN) Effective 01/15/2019: PT Reference Range ChangeNew: 11.9-14.2 Previous: 11.7-14.7 RECOMMENDED COUMADIN/WARFARIN INR THERAPY RANGESSTANDARD DOSE: 2.0-3.0 Includes: PROPHYLAXIS for venous thrombosis, systemic embolization; TREATMENT for venous thrombosis and/or pulmonary embolus.HIGH RISK: Target INR is 2.5-3.5 for patients wiht mechanical heart valves. Lab Interpretation Abnormal (test code = 19317-7) [id number] 05:53:00 Test Item Value Reference Range Interpretation Comments PROTIME (BEAKER) (test code = 14.4 seconds 11.9-14.2 H 759) INR (BEAKER) (test code = 370) 1.2 <=5.9 PARTIAL THROMBOPLASTIN TIME 31.4 seconds 22.5-36.0 (BEAKER) (test code = 760) Effective 01/15/2019: PT Reference Range ChangeNew: 11.9-14.2 Previous: 11.7- 14.7RECOMMENDED COUMADIN/WARFARIN INR THERAPY RANGESSTANDARD DOSE: 2.0-3.0 Includes: PROPHYLAXIS for venous thrombosis, systemic embolization; TREATMENT for venous thrombosis and/or pulmonary embolus.HIGH RISK: Target INR is2.5-3.5 for patients wiht mechanical heart valves. Screen, [id number] 23:22:00 Test Item Value Reference Range Interpretation Comments Preg Test, Ur (test code = 2112-1) Negative [facility] S[facility], [id number] 23:22:00 Test Item Value Reference Range Interpretation Comments TEST URINE (BEAKER) (test Negative code = 583) CBC W/PLT COUNT & AUTO [id number] 14:10:00 Test Item Value Reference Range Interpretation Comments WHITE BLOOD CELL COUNT 21.0 K/ L 3.5-10.5 H (BEAKER) (test code = 775) RED BLOOD CELL COUNT 1.77 M/ L 3.93-5.22 L (BEAKER) (test code = 761) HEMOGLOBIN (BEAKER) 5.8 GM/DL 11.2-15.7 LL (test code = 410) HEMATOCRIT (BEAKER) 18.0 % 34.1-44.9 L (test code = 411) MEAN CORPUSCULAR 101.7 fL 79.4-94.8 H VOLUME (BEAKER) (test code = 753) MEAN CORPUSCULAR 32.8 pg 25.6-32.2 H HEMOGLOBIN (BEAKER) (test code = 751) MEAN CORPUSCULAR 32.2 GM/DL 32.2-35.5 HEMOGLOBIN CONC (BEAKER) (test code = 752) RED CELL DISTRIBUTION Unable to report due WIDTH (BEAKER) (test to [facility] RBC code = 412) population distribution. PLATELET COUNT 251 K/CU MM 150-450 (BEAKER) (test code = 756) MEAN PLATELET VOLUME 11.5 fL 9.4-12.3 (BEAKER) (test code = 754) NUCLEATED RED BLOOD 47 /100 WBC 0-0 H CELLS (BEAKER) (test code = 413) (CELLAVISION MANUAL DIFF)2019-09-24 14:10:00 Test Item Value Reference Range Interpretation Comments NEUTROPHILS - REL 36 % (CELLAVISION)(BEAKER) (test code = 2816) LYMPHOCYTES - REL 45 % (CELLAVISION)(BEAKER) (test code = 2817) MONOCYTES - REL 17 % (CELLAVISION)(BEAKER) (test code = 2818) EOSINOPHILS - REL 2 % (CELLAVISION)(BEAKER) (test code = 2819) NEUTROPHILS - ABS 7.56 K/ul 1.56-6.13 H (CELLAVISION)(BEAKER) (test code = 2830) LYMPHOCYTES - ABS 9.45 K/ul 1.18-3.74 H (CELLAVISION)(BEAKER) (test code = 2831) MONOCYTES - ABS 3.57 K/uL 0.24-0.36 H (CELLAVISION)(BEAKER) (test code = 2832) EOSINOPHILS - ABS 0.42 K/uL 0.04-0.36 H (CELLAVISION)(BEAKER) (test code = 2834) TOTAL COUNTED (BEAKER) (test code 100 = 1351) MANUAL NRBC PER 100 CELLS 44 /100 WBC 0-0 H (BEAKER) (test code = 1353) PLT MORPHOLOGY (BEAKER) (test Normal code = 486) TOXIC GRANULATION (BEAKER) (test Present code = 771) POLYCHROMATOPHILLIC RBCS(BEAKER) 3+ many (test code = 478) HYPOCHROMIA (BEAKER) (test code = 1+ few 963) ANISOCYTOSIS (BEAKER) (test code 3+ many = 961) MICROCYTES (BEAKER) (test code = 1+ few 965) MACROCYTES (BEAKER) (test code = 1+ few 964) POIKILOCYTES (BEAKER) (test code 2+ moderate = 966) TARGET CELLS (BEAKER) (test code 1+ few = 480) SICKLE CELLS (BEAKER) (test code 1+ few = 767) TEAR DROP CELLS (BEAKER) (test 1+ few code = 481) ARTIFACT (CELLAVISION)(BEAKER) Present (test code = 3432) PLATELET CONCENTRATION Adequate (CELLAVISION)(BEAKER) (test code = 3438) Transmission Superintendent ID - [id number] ID - Em [place] comments: Slide comments:Manual [id number] 10:51:00 Test Item Value Reference Range Interpretation Comments % Neutros (manual) (test code = 48 % 1359) % Lymphs (manual) (test code = 19 % 1360) % Monos (manual) (test code = 29 % 1361) % Eos (manual) (test code = 3 % 1362) % Atypical Lymphs (test code = 1 % 0-0 H 260) # Neutros (manual) (test code = 7.15 1.80- 8.00 K/L 1365) # Lymphs (manual) (test code = 2.83 1.48- 4.50 K/L 1366) # Monos (manual) (test code = 4.32 0.00- 1.30 K/L H 1367) # Eos (manual) (test code = 0.45 0.00- 0.50 K/L 1368) # Atypical Lymphs (test code = 0.15 0.00- 0.00 K/L H 263) Total Counted (test code = 1351) 100 WBC Morphology (test code = 487) Normal Platelet Morphology (test code = Normal 486) Hypochromia (test code = 963) 2+ moderate Sickle Cells (test code = 767) 3+ many Target Cells (test code = 480) 2+ moderate Tear Drop Cells (test code = 1+ few 481) Lab Interpretation (test code = Abnormal 69196-9) [facility](MANUAL DIFFERENTIAL)2019-07-20 10:51:00 Test Item Value Reference Range Interpretation Comments NEUTROPHILS - REL (DIFF) (BEAKER) 48 % (test code = 1359) LYMPHOCYTES - REL (DIFF) (BEAKER) 19 % (test code = 1360) MONOCYTES - REL (DIFF) (BEAKER) 29 % (test code = 1361) EOSINOPHILS - REL (DIFF) (BEAKER) 3 % (test code = 1362) ATYPICAL LYMPHOCYTE - REL (DIFF) 1 % 0-0 H (BEAKER) (test code = 260) NEUTROPHILS - ABS (DIFF) (BEAKER) 7.15 K/ L 1.80-8.00 (test code = 1365) LYMPHOCYTES - ABS (DIFF) (BEAKER) 2.83 K/ L 1.48-4.50 (test code = 1366) MONOCYTES - ABS (DIFF) (BEAKER) 4.32 K/ L 0.00-1.30 H (test code = 1367) EOSINOPHILS - ABS (DIFF) (BEAKER) 0.45 K/ L 0.00-0.50 (test code = 1368) ATYPICAL LYMPHOCYTES - ABS (DIFF) 0.15 K/ L 0.00-0.00 H (BEAKER) (test code = 263) TOTAL COUNTED (BEAKER) (test code 100 = 1351) WBC MORPHOLOGY (BEAKER) (test Normal code = 487) PLT MORPHOLOGY (BEAKER) (test Normal code = 486) HYPOCHROMIA (BEAKER) (test code = 2+ moderate 963) SICKLE CELLS (BEAKER) (test code 3+ many = 767) TARGET CELLS (BEAKER) (test code 2+ moderate = 480) TEAR DROP CELLS (BEAKER) (test 1+ few code = 481) CBC W/PLT COUNT & AUTO [id number] 10:49:00 Test Item Value Reference Range Interpretation Comments WHITE BLOOD CELL COUNT (BEAKER) 14.9 K/ L 4.0-10.0 H (test code = 775) RED BLOOD CELL COUNT (BEAKER) 2.58 M/ L 4.00-5.00 L (test code = 761) HEMOGLOBIN (BEAKER) (test code = 7.5 GM/DL 12.0-15.5 L 410) HEMATOCRIT (BEAKER) (test code = 22.8 % 36.0-46.0 L 411) MEAN CORPUSCULAR VOLUME (BEAKER) 88.4 fL 82.0-99.0 (test code = 753) MEAN CORPUSCULAR HEMOGLOBIN 29.1 pg 27.0-33.0 (BEAKER) (test code = 751) MEAN CORPUSCULAR HEMOGLOBIN CONC 32.9 GM/DL 32.0-36.0 (BEAKER) (test code = 752) RED CELL DISTRIBUTION WIDTH 21.8 % 12.0-15.0 H (BEAKER) (test code = 412) PLATELET COUNT (BEAKER) (test 245 K/CU MM 150-430 code = 756) MEAN PLATELET VOLUME (BEAKER) 9.8 fL 6.0-11.5 (test code = 754) NUCLEATED RED BLOOD CELLS 0 /100 WBC 0-0 (BEAKER) (test code = 413) RETICULOCYTE [id number] 09:49:00 Test Item Value Reference Range Interpretation Comments RETICULOCYTE COUNT PCT (BEAKER) (test 5.0 % 0.4-2.9 H code = 575) [place], [id number] 16:02:00 Test Item Value Reference Range Interpretation Comments ABO Grouping (test code O Test ing performed by: = [id number]) [facility] [address] [place] [address] Rh Factor (test code = POS Testi ng performed by: [id number]) [facility] [address] [place] [address] [facility] & AUTO [id number] 07:19:00 Test Item Value Reference Range Interpretation Comments WHITE BLOOD CELL COUNT (BEAKER) 17.0 K/ L 4.0-10.0 H (test code = 775) RED BLOOD CELL COUNT (BEAKER) 2.03 M/ L 4.00-5.00 L (test code = 761) HEMOGLOBIN (BEAKER) (test code = 5.9 GM/DL 12.0-15.5 LL 410) HEMATOCRIT (BEAKER) (test code = 18.5 % 36.0-46.0 LL 411) MEAN CORPUSCULAR VOLUME (BEAKER) 91.1 fL 82.0-99.0 (test code = 753) MEAN CORPUSCULAR HEMOGLOBIN 29.1 pg 27.0-33.0 (BEAKER) (test code = 751) MEAN CORPUSCULAR HEMOGLOBIN CONC 31.9 GM/DL 32.0-36.0 L (BEAKER) (test code = 752) RED CELL DISTRIBUTION WIDTH 23.6 % 12.0-15.0 H (BEAKER) (test code = 412) PLATELET COUNT (BEAKER) (test 250 K/CU MM 150-430 code = 756) MEAN PLATELET VOLUME (BEAKER) 10.4 fL 6.0-11.5 (test code = 754) NUCLEATED RED BLOOD CELLS 0 /100 WBC 0-0 (BEAKER) (test code = 413) NEUTROPHILS RELATIVE PERCENT 45 % (BEAKER) (test code = 429) LYMPHOCYTES RELATIVE PERCENT 28 % (BEAKER) (test code = 430) MONOCYTES RELATIVE PERCENT 24 % (BEAKER) (test code = 431) EOSINOPHILS RELATIVE PERCENT 3 % (BEAKER) (test code = 432) BASOPHILS RELATIVE PERCENT 0 % (BEAKER) (test code = 437) NEUTROPHILS ABSOLUTE COUNT 7.59 K/ L 1.80-8.00 (BEAKER) (test code = 670) LYMPHOCYTES ABSOLUTE COUNT 4.80 K/ L 1.48-4.50 H (BEAKER) (test code = 414) MONOCYTES ABSOLUTE COUNT (BEAKER) 3.99 K/ L 0.00-1.30 H (test code = 415) EOSINOPHILS ABSOLUTE COUNT 0.47 K/ L 0.00-0.50 (BEAKER) (test code = 416) BASOPHILS ABSOLUTE COUNT (BEAKER) 0.05 K/ L 0.00-0.20 (test code = 417) IMMATURE GRANULOCYTES-RELATIVE 0 % 0-0 PERCENT (BEAKER) (test code = 2801) (MANUAL DIFFERENTIAL)2019-07-19 07:19:00 Test Item Value Reference Range Interpretation Comments NEUTROPHILS - REL (DIFF) (BEAKER) 53 % (test code = 1359) LYMPHOCYTES - REL (DIFF) (BEAKER) 30 % (test code = 1360) MONOCYTES - REL (DIFF) (BEAKER) 11 % (test code = 1361) EOSINOPHILS - REL (DIFF) (BEAKER) 4 % (test code = 1362) ATYPICAL LYMPHOCYTE - REL (DIFF) 2 % 0-0 H (BEAKER) (test code = 260) NEUTROPHILS - ABS (DIFF) (BEAKER) 9.01 K/ L 1.80-8.00 H (test code = 1365) LYMPHOCYTES - ABS (DIFF) (BEAKER) 5.10 K/ L 1.48-4.50 H (test code = 1366) MONOCYTES - ABS (DIFF) (BEAKER) 1.87 K/ L 0.00-1.30 H (test code = 1367) EOSINOPHILS - ABS (DIFF) (BEAKER) 0.68 K/ L 0.00-0.50 H (test code = 1368) ATYPICAL LYMPHOCYTES - ABS (DIFF) 0.34 K/ L 0.00-0.00 H (BEAKER) (test code = 263) TOTAL COUNTED (BEAKER) (test code = 100 1351) WBC MORPHOLOGY (BEAKER) (test code Normal = 487) PLT MORPHOLOGY (BEAKER) (test code Normal = 486) ANISOCYTOSIS (BEAKER) (test code = 1+ few 961) HYPOCHROMIA (BEAKER) (test code = 1+ few 963) POIKILOCYTES (BEAKER) (test code = 1+ few 966) SICKLE CELLS (BEAKER) (test code = 1+ few 767) TARGET CELLS (BEAKER) (test code = 1+ few 480) RETICULOCYTE [id number] 06:38:00 Test Item Value Reference Range Interpretation Comments RETICULOCYTE COUNT PCT (BEAKER) (test 5.4 % 0.4-2.9 H code = 575) CBC W/PLT COUNT & AUTO [id number] 05:39:00 Test Item Value Reference Range Interpretation Comments WHITE BLOOD CELL COUNT (BEAKER) 15.2 K/ L 4.0-10.0 H (test code = 775) RED BLOOD CELL COUNT (BEAKER) 2.06 M/ L 4.00-5.00 L (test code = 761) HEMOGLOBIN (BEAKER) (test code = 6.2 GM/DL 12.0-15.5 L 410) HEMATOCRIT (BEAKER) (test code = 18.8 % 36.0-46.0 LL 411) MEAN CORPUSCULAR VOLUME (BEAKER) 91.3 fL 82.0-99.0 (test code = 753) MEAN CORPUSCULAR HEMOGLOBIN 30.1 pg 27.0-33.0 (BEAKER) (test code = 751) MEAN CORPUSCULAR HEMOGLOBIN CONC 33.0 GM/DL 32.0-36.0 (BEAKER) (test code = 752) RED CELL DISTRIBUTION WIDTH 23.5 % 12.0-15.0 H (BEAKER) (test code = 412) PLATELET COUNT (BEAKER) (test 189 K/CU MM 150-430 code = 756) MEAN PLATELET VOLUME (BEAKER) 9.9 fL 6.0-11.5 (test code = 754) NUCLEATED RED BLOOD CELLS 0 /100 WBC 0-0 (BEAKER) (test code = 413) NEUTROPHILS RELATIVE PERCENT 40 % (BEAKER) (test code = 429) LYMPHOCYTES RELATIVE PERCENT 36 % (BEAKER) (test code = 430) MONOCYTES RELATIVE PERCENT 21 % (BEAKER) (test code = 431) EOSINOPHILS RELATIVE PERCENT 3 % (BEAKER) (test code = 432) BASOPHILS RELATIVE PERCENT 0 % (BEAKER) (test code = 437) NEUTROPHILS ABSOLUTE COUNT 6.02 K/ L 1.80-8.00 (BEAKER) (test code = 670) LYMPHOCYTES ABSOLUTE COUNT 5.45 K/ L 1.48-4.50 H (BEAKER) (test code = 414) MONOCYTES ABSOLUTE COUNT (BEAKER) 3.13 K/ L 0.00-1.30 H (test code = 415) EOSINOPHILS ABSOLUTE COUNT 0.49 K/ L 0.00-0.50 (BEAKER) (test code = 416) BASOPHILS ABSOLUTE COUNT (BEAKER) 0.05 K/ L 0.00-0.20 (test code = 417) IMMATURE GRANULOCYTES-RELATIVE 0 % 0-0 PERCENT (BEAKER) (test code = 2801) (MANUAL DIFFERENTIAL)2019-07-18 05:39:00 Test Item Value Reference Range Interpretation Comments NEUTROPHILS - REL (DIFF) (BEAKER) 34 % (test code = 1359) LYMPHOCYTES - REL (DIFF) (BEAKER) 45 % (test code = 1360) MONOCYTES - REL (DIFF) (BEAKER) 19 % (test code = 1361) EOSINOPHILS - REL (DIFF) (BEAKER) 1 % (test code = 1362) BASOPHILS - REL (DIFF) (BEAKER) 1 % (test code = 1363) NEUTROPHILS - ABS (DIFF) (BEAKER) 5.17 K/ L 1.80-8.00 (test code = 1365) LYMPHOCYTES - ABS (DIFF) (BEAKER) 6.84 K/ L 1.48-4.50 H (test code = 1366) MONOCYTES - ABS (DIFF) (BEAKER) 2.89 K/ L 0.00-1.30 H (test code = 1367) EOSINOPHILS - ABS (DIFF) (BEAKER) 0.15 K/ L 0.00-0.50 (test code = 1368) BASOPHILS - ABS (DIFF) (BEAKER) 0.15 K/ L 0.00-0.20 (test code = 1369) TOTAL COUNTED (BEAKER) (test code 100 = 1351) MANUAL NRBC PER 100 CELLS 1 /100 WBC 0-0 H (BEAKER) (test code = 1353) WBC MORPHOLOGY (BEAKER) (test Normal code = 487) LARGE PLT(BEAKER) (test code = Present 2156) ANISOCYTOSIS (BEAKER) (test code 2+ moderate = 961) SICKLE CELLS (BEAKER) (test code 1+ few = 767) TARGET CELLS (BEAKER) (test code 1+ few = 480) CBC W/PLT COUNT & AUTO [id number] 06:39:00 Test Item Value Reference Range Interpretation Comments WHITE BLOOD CELL COUNT (BEAKER) 14.8 K/ L 4.0-10.0 H (test code = 775) RED BLOOD CELL COUNT (BEAKER) 2.22 M/ L 4.00-5.00 L (test code = 761) HEMOGLOBIN (BEAKER) (test code = 6.5 GM/DL 12.0-15.5 L 410) HEMATOCRIT (BEAKER) (test code = 20.2 % 36.0-46.0 LL 411) MEAN CORPUSCULAR VOLUME (BEAKER) 91.0 fL 82.0-99.0 (test code = 753) MEAN CORPUSCULAR HEMOGLOBIN 29.3 pg 27.0-33.0 (BEAKER) (test code = 751) MEAN CORPUSCULAR HEMOGLOBIN CONC 32.2 GM/DL 32.0-36.0 (BEAKER) (test code = 752) RED CELL DISTRIBUTION WIDTH 23.7 % 12.0-15.0 H (BEAKER) (test code = 412) PLATELET COUNT (BEAKER) (test 214 K/CU MM 150-430 code = 756) MEAN PLATELET VOLUME (BEAKER) 10.0 fL 6.0-11.5 (test code = 754) NUCLEATED RED BLOOD CELLS 0 /100 WBC 0-0 (BEAKER) (test code = 413) NEUTROPHILS RELATIVE PERCENT 39 % (BEAKER) (test code = 429) LYMPHOCYTES RELATIVE PERCENT 32 % (BEAKER) (test code = 430) MONOCYTES RELATIVE PERCENT 26 % (BEAKER) (test code = 431) EOSINOPHILS RELATIVE PERCENT 3 % (BEAKER) (test code = 432) BASOPHILS RELATIVE PERCENT 0 % (BEAKER) (test code = 437) NEUTROPHILS ABSOLUTE COUNT 5.80 K/ L 1.80-8.00 (BEAKER) (test code = 670) LYMPHOCYTES ABSOLUTE COUNT 4.64 K/ L 1.48-4.50 H (BEAKER) (test code = 414) MONOCYTES ABSOLUTE COUNT (BEAKER) 3.76 K/ L 0.00-1.30 H (test code = 415) EOSINOPHILS ABSOLUTE COUNT 0.45 K/ L 0.00-0.50 (BEAKER) (test code = 416) BASOPHILS ABSOLUTE COUNT (BEAKER) 0.06 K/ L 0.00-0.20 (test code = 417) IMMATURE GRANULOCYTES-RELATIVE 0 % 0-0 PERCENT (BEAKER) (test code = 2801) (MANUAL DIFFERENTIAL)2019-07-17 06:39:00 Test Item Value Reference Range Interpretation Comments NEUTROPHILS - REL (DIFF) (BEAKER) 40 % (test code = 1359) LYMPHOCYTES - REL (DIFF) (BEAKER) 26 % (test code = 1360) MONOCYTES - REL (DIFF) (BEAKER) 27 % (test code = 1361) EOSINOPHILS - REL (DIFF) (BEAKER) 6 % (test code = 1362) BANDS - REL (DIFF) (BEAKER) (test 1 % 0-10 code = 1348) NEUTROPHILS - ABS (DIFF) (BEAKER) 5.92 K/ L 1.80-8.00 (test code = 1365) LYMPHOCYTES - ABS (DIFF) (BEAKER) 3.85 K/ L 1.48-4.50 (test code = 1366) MONOCYTES - ABS (DIFF) (BEAKER) 4.00 K/ L 0.00-1.30 H (test code = 1367) EOSINOPHILS - ABS (DIFF) (BEAKER) 0.89 K/ L 0.00-0.50 H (test code = 1368) BANDS-ABS (DIFF) (BEAKER) (test 0.1 K/ L 0.0-0.8 code = 1349) TOTAL COUNTED (BEAKER) (test code 100 = 1351) BANDS + SEGMENTED NEUTROPHILS 6.07 (BEAKER) (test code = 1352) WBC MORPHOLOGY (BEAKER) (test Normal code = 487) LARGE PLT(BEAKER) (test code = Present 2156) GIANT PLATELETS (BEAKER) (test Present code = 313) ANISOCYTOSIS (BEAKER) (test code 2+ moderate = 961) SICKLE CELLS (BEAKER) (test code 1+ few = 767) STOMATOCYTES (BEAKER) (test code 1+ few = 479) TARGET CELLS (BEAKER) (test code 1+ few = 480) BASIC METABOLIC [id number] 05:53:00 Test Item Value Reference Range Interpretation Comments SODIUM (BEAKER) 139 meq/L 135-148 (test code = 381) POTASSIUM (BEAKER) 4.5 meq/L 3.6-5.5 (test code = 379) CHLORIDE (BEAKER) 103 meq/L 98-106 (test code = 382) CO2 (BEAKER) (test 28 meq/L 20-29 code = 355) BLOOD UREA NITROGEN 16 mg/dL 10-26 (BEAKER) (test code = 354) CREATININE (BEAKER) 0.61 mg/dL 0.50-1.20 (test code = 358) GLUCOSE RANDOM 97 mg/dL 70-110 (BEAKER) (test code = 652) CALCIUM (BEAKER) 9.5 mg/dL 8.5-10.5 (test code = 697) EGFR (BEAKER) (test 132 mL/min/1.73 ESTIM ATED GFR IS code = 1092) sq m NOT ACCURATE CREATININE CLEARANCE IN PREDICTING GLOMERULAR FILTRATION RATE . ESTIMATED GFR I S NOT APPLICABLE FOR DIALYSIS PATIEN TS. CBC W/PLT COUNT & AUTO [id number] 07:08:00 Test Item Value Reference Range Interpretation Comments WHITE BLOOD CELL COUNT (BEAKER) 13.2 K/ L 4.0-10.0 H (test code = 775) RED BLOOD CELL COUNT (BEAKER) 2.27 M/ L 4.00-5.00 L (test code = 761) HEMOGLOBIN (BEAKER) (test code = 6.9 GM/DL 12.0-15.5 L 410) HEMATOCRIT (BEAKER) (test code = 20.4 % 36.0-46.0 LL 411) MEAN CORPUSCULAR VOLUME (BEAKER) 89.9 fL 82.0-99.0 (test code = 753) MEAN CORPUSCULAR HEMOGLOBIN 30.4 pg 27.0-33.0 (BEAKER) (test code = 751) MEAN CORPUSCULAR HEMOGLOBIN CONC 33.8 GM/DL 32.0-36.0 (BEAKER) (test code = 752) RED CELL DISTRIBUTION WIDTH 23.9 % 12.0-15.0 H (BEAKER) (test code = 412) PLATELET COUNT (BEAKER) (test 207 K/CU MM 150-430 code = 756) MEAN PLATELET VOLUME (BEAKER) 10.3 fL 6.0-11.5 (test code = 754) NUCLEATED RED BLOOD CELLS 1 /100 WBC 0-0 H (BEAKER) (test code = 413) (MANUAL DIFFERENTIAL)2019-07-16 07:08:00 Test Item Value Reference Range Interpretation Comments NEUTROPHILS - REL (DIFF) (BEAKER) 41 % (test code = 1359) LYMPHOCYTES - REL (DIFF) (BEAKER) 24 % (test code = 1360) MONOCYTES - REL (DIFF) (BEAKER) 26 % (test code = 1361) EOSINOPHILS - REL (DIFF) (BEAKER) 3 % (test code = 1362) BASOPHILS - REL (DIFF) (BEAKER) 1 % (test code = 1363) ATYPICAL LYMPHOCYTE - REL (DIFF) 5 % 0-0 H (BEAKER) (test code = 260) NEUTROPHILS - ABS (DIFF) (BEAKER) 5.41 K/ L 1.80-8.00 (test code = 1365) LYMPHOCYTES - ABS (DIFF) (BEAKER) 3.17 K/ L 1.48-4.50 (test code = 1366) MONOCYTES - ABS (DIFF) (BEAKER) 3.43 K/ L 0.00-1.30 H (test code = 1367) EOSINOPHILS - ABS (DIFF) (BEAKER) 0.40 K/ L 0.00-0.50 (test code = 1368) BASOPHILS - ABS (DIFF) (BEAKER) 0.13 K/ L 0.00-0.20 (test code = 1369) ATYPICAL LYMPHOCYTES - ABS (DIFF) 0.66 K/ L 0.00-0.00 H (BEAKER) (test code = 263) TOTAL COUNTED (BEAKER) (test code 100 = 1351) MANUAL NRBC PER 100 CELLS 1 /100 WBC 0-0 H (BEAKER) (test code = 1353) WBC MORPHOLOGY (BEAKER) (test Normal code = 487) LARGE PLT(BEAKER) (test code = Present 2156) ANISOCYTOSIS (BEAKER) (test code 2+ moderate = 961) HYPOCHROMIA (BEAKER) (test code = 1+ few 963) MACROCYTES (BEAKER) (test code = 1+ few 964) SICKLE CELLS (BEAKER) (test code 1+ few = 767) TARGET CELLS (BEAKER) (test code 1+ few = 480) BASIC METABOLIC [id number] 06:11:00 Test Item Value Reference Range Interpretation Comments SODIUM (BEAKER) 139 meq/L 135-148 (test code = 381) POTASSIUM (BEAKER) 5.6 meq/L 3.6-5.5 H (test code = 379) CHLORIDE (BEAKER) 104 meq/L 98-106 (test code = 382) CO2 (BEAKER) (test 28 meq/L 20-29 code = 355) BLOOD UREA NITROGEN 20 mg/dL 10-26 (BEAKER) (test code = 354) CREATININE (BEAKER) 0.62 mg/dL 0.50-1.20 (test code = 358) GLUCOSE RANDOM 90 mg/dL 70-110 (BEAKER) (test code = 652) CALCIUM (BEAKER) 9.6 mg/dL 8.5-10.5 (test code = 697) EGFR (BEAKER) (test 129 mL/min/1.73 ESTIM ATED GFR IS code = 1092) sq m NOT ACCURATE CREATININE CLEARANCE IN PREDICTING GLOMERULAR FILTRATION RATE . ESTIMATED GFR I S NOT APPLICABLE FOR DIALYSIS PATIEN TS. [id number] 06:58:00 Test Item Value Reference Range Interpretation Comments FERRITIN (BEAKER) (test code = 75278 ng/mL 10-291 H 361) CBC W/PLT COUNT & AUTO [id number] 06:17:00 Test Item Value Reference Range Interpretation Comments WHITE BLOOD CELL COUNT (BEAKER) 13.8 K/ L 4.0-10.0 H (test code = 775) RED BLOOD CELL COUNT (BEAKER) 2.47 M/ L 4.00-5.00 L (test code = 761) HEMOGLOBIN (BEAKER) (test code = 7.5 GM/DL 12.0-15.5 L 410) HEMATOCRIT (BEAKER) (test code = 23.0 % 36.0-46.0 L 411) MEAN CORPUSCULAR VOLUME (BEAKER) 93.1 fL 82.0-99.0 (test code = 753) MEAN CORPUSCULAR HEMOGLOBIN 30.4 pg 27.0-33.0 (BEAKER) (test code = 751) MEAN CORPUSCULAR HEMOGLOBIN CONC 32.6 GM/DL 32.0-36.0 (BEAKER) (test code = 752) RED CELL DISTRIBUTION WIDTH 24.1 % 12.0-15.0 H (BEAKER) (test code = 412) PLATELET COUNT (BEAKER) (test 210 K/CU MM 150-430 code = 756) MEAN PLATELET VOLUME (BEAKER) 9.6 fL 6.0-11.5 (test code = 754) NUCLEATED RED BLOOD CELLS 1 /100 WBC 0-0 H (BEAKER) (test code = 413) NEUTROPHILS RELATIVE PERCENT 42 % (BEAKER) (test code = 429) LYMPHOCYTES RELATIVE PERCENT 32 % (BEAKER) (test code = 430) MONOCYTES RELATIVE PERCENT 23 % (BEAKER) (test code = 431) EOSINOPHILS RELATIVE PERCENT 3 % (BEAKER) (test code = 432) BASOPHILS RELATIVE PERCENT 0 % (BEAKER) (test code = 437) NEUTROPHILS ABSOLUTE COUNT 5.74 K/ L 1.80-8.00 (BEAKER) (test code = 670) LYMPHOCYTES ABSOLUTE COUNT 4.36 K/ L 1.48-4.50 (BEAKER) (test code = 414) MONOCYTES ABSOLUTE COUNT (BEAKER) 3.11 K/ L 0.00-1.30 H (test code = 415) EOSINOPHILS ABSOLUTE COUNT 0.47 K/ L 0.00-0.50 (BEAKER) (test code = 416) BASOPHILS ABSOLUTE COUNT (BEAKER) 0.06 K/ L 0.00-0.20 (test code = 417) IMMATURE GRANULOCYTES-RELATIVE 0 % 0-0 PERCENT (BEAKER) (test code = 2801) (MANUAL DIFFERENTIAL)2019-07-15 06:17:00 Test Item Value Reference Range Interpretation Comments NEUTROPHILS - REL (DIFF) (BEAKER) 37 % (test code = 1359) LYMPHOCYTES - REL (DIFF) (BEAKER) 36 % (test code = 1360) MONOCYTES - REL (DIFF) (BEAKER) 23 % (test code = 1361) EOSINOPHILS - REL (DIFF) (BEAKER) 4 % (test code = 1362) NEUTROPHILS - ABS (DIFF) (BEAKER) 5.11 K/ L 1.80-8.00 (test code = 1365) LYMPHOCYTES - ABS (DIFF) (BEAKER) 4.97 K/ L 1.48-4.50 H (test code = 1366) MONOCYTES - ABS (DIFF) (BEAKER) 3.17 K/ L 0.00-1.30 H (test code = 1367) EOSINOPHILS - ABS (DIFF) (BEAKER) 0.55 K/ L 0.00-0.50 H (test code = 1368) TOTAL COUNTED (BEAKER) (test code 100 = 1351) WBC MORPHOLOGY (BEAKER) (test Normal code = 487) LARGE PLT(BEAKER) (test code = Present 2156) ANISOCYTOSIS (BEAKER) (test code 2+ moderate = 961) HYPOCHROMIA (BEAKER) (test code = 1+ few 963) SICKLE CELLS (BEAKER) (test code 1+ few = 767) STOMATOCYTES (BEAKER) (test code 1+ few = 479) TARGET CELLS (BEAKER) (test code 1+ few = 480) BASIC METABOLIC [id number] 05:33:00 Test Item Value Reference Range Interpretation Comments SODIUM (BEAKER) 137 meq/L 135-148 (test code = 381) POTASSIUM (BEAKER) 5.4 meq/L 3.6-5.5 (test code = 379) CHLORIDE (BEAKER) 102 meq/L 98-106 (test code = 382) CO2 (BEAKER) (test 27 meq/L 20-29 code = 355) BLOOD UREA NITROGEN 17 mg/dL 10-26 (BEAKER) (test code = 354) CREATININE (BEAKER) 0.65 mg/dL 0.50-1.20 (test code = 358) GLUCOSE RANDOM 100 mg/dL 70-110 (BEAKER) (test code = 652) CALCIUM (BEAKER) 9.9 mg/dL 8.5-10.5 (test code = 697) EGFR (BEAKER) (test 122 mL/min/1.73 ESTIM ATED GFR IS code = 1092) sq m NOT ACCURATE CREATININE CLEARANCE IN PREDICTING GLOMERULAR FILTRATION RATE . ESTIMATED GFR I S NOT APPLICABLE FOR DIALYSIS PATIEN TS. Specimen slightly ictericRETICULOCYTE [id number] 05:20:00 Test Item Value Reference Range Interpretation Comments RETICULOCYTE COUNT PCT (BEAKER) (test 7.1 % 0.4-2.9 H code = 575) Immature reticulocyte [id number] 09:45:00 Test Item Value Reference Range Interpretation Comments Immature Reticulocyte Fraction (test 25.300 % 3-15.9 H code = 33859-2) % Retic (test code = 60498-4) 8.2 % 0.5-1.7 H Lab Interpretation (test code = Abnormal 59348-8) [facility] [id number] 09:45:00 Test Item Value Reference Range Interpretation Comments IMMATURE RETIC FRACTION (BEAKER) 25.300 % 3.000-15.900 H (test code = 1447) RETICULOCYTE COUNT PCT (BEAKER) 8.2 % 0.5-1.7 H (test code = 575) CBC W/PLT COUNT & AUTO [id number] 07:24:00 Test Item Value Reference Range Interpretation Comments WHITE BLOOD CELL COUNT (BEAKER) 15.6 K/ L 4.0-10.0 H (test code = 775) RED BLOOD CELL COUNT (BEAKER) 2.19 M/ L 4.00-5.00 L (test code = 761) HEMOGLOBIN (BEAKER) (test code = 6.6 GM/DL 12.0-15.5 L 410) HEMATOCRIT (BEAKER) (test code = 20.3 % 36.0-46.0 LL 411) MEAN CORPUSCULAR VOLUME (BEAKER) 92.7 fL 82.0-99.0 (test code = 753) MEAN CORPUSCULAR HEMOGLOBIN 30.1 pg 27.0-33.0 (BEAKER) (test code = 751) MEAN CORPUSCULAR HEMOGLOBIN CONC 32.5 GM/DL 32.0-36.0 (BEAKER) (test code = 752) RED CELL DISTRIBUTION WIDTH 24.1 % 12.0-15.0 H (BEAKER) (test code = 412) PLATELET COUNT (BEAKER) (test 251 K/CU MM 150-430 code = 756) MEAN PLATELET VOLUME (BEAKER) 10.3 fL 6.0-11.5 (test code = 754) NUCLEATED RED BLOOD CELLS 1 /100 WBC 0-0 H (BEAKER) (test code = 413) (MANUAL DIFFERENTIAL)2019-07-14 07:24:00 Test Item Value Reference Range Interpretation Comments NEUTROPHILS - REL (DIFF) (BEAKER) 37 % (test code = 1359) LYMPHOCYTES - REL (DIFF) (BEAKER) 38 % (test code = 1360) MONOCYTES - REL (DIFF) (BEAKER) 23 % (test code = 1361) EOSINOPHILS - REL (DIFF) (BEAKER) 1 % (test code = 1362) BASOPHILS - REL (DIFF) (BEAKER) 1 % (test code = 1363) NEUTROPHILS - ABS (DIFF) (BEAKER) 5.77 K/ L 1.80-8.00 (test code = 1365) LYMPHOCYTES - ABS (DIFF) (BEAKER) 5.93 K/ L 1.48-4.50 H (test code = 1366) MONOCYTES - ABS (DIFF) (BEAKER) 3.59 K/ L 0.00-1.30 H (test code = 1367) EOSINOPHILS - ABS (DIFF) (BEAKER) 0.16 K/ L 0.00-0.50 (test code = 1368) BASOPHILS - ABS (DIFF) (BEAKER) 0.16 K/ L 0.00-0.20 (test code = 1369) TOTAL COUNTED (BEAKER) (test code 100 = 1351) MANUAL NRBC PER 100 CELLS 2 /100 WBC 0-0 H (BEAKER) (test code = 1353) WBC MORPHOLOGY (BEAKER) (test Normal code = 487) PLT MORPHOLOGY (BEAKER) (test Normal code = 486) ANISOCYTOSIS (BEAKER) (test code 2+ moderate = 961) HYPOCHROMIA (BEAKER) (test code = 1+ few 963) MICROCYTES (BEAKER) (test code = 1+ few 965) SICKLE CELLS (BEAKER) (test code 1+ few = 767) TARGET CELLS (BEAKER) (test code 1+ few = 480) BASIC METABOLIC [id number] 06:38:00 Test Item Value Reference Range Interpretation Comments SODIUM (BEAKER) 138 meq/L 135-148 (test code = 381) POTASSIUM (BEAKER) 5.1 meq/L 3.6-5.5 Specimen slightly (test code = 379) hemolyzed CHLORIDE (BEAKER) 104 meq/L 98-106 (test code = 382) CO2 (BEAKER) (test 26 meq/L 20-29 code = 355) BLOOD UREA NITROGEN 16 mg/dL 10-26 (BEAKER) (test code = 354) CREATININE (BEAKER) 0.60 mg/dL 0.50-1.20 Specimen slightly (test code = 358) hemolyzed GLUCOSE RANDOM 106 mg/dL 70-110 (BEAKER) (test code = 652) CALCIUM (BEAKER) 10.1 mg/dL 8.5-10.5 (test code = 697) EGFR (BEAKER) (test 134 mL/min/1.73 ESTIM ATED GFR IS code = 1092) sq m NOT ACCURATE CREATININE CLEARANCE IN PREDICTING GLOMERULAR FILTRATION RATE . ESTIMATED GFR I S NOT APPLICABLE FOR DIALYSIS PATIEN TS. BLOOD [id number] 01:01:00 Test Item Value Reference Range Interpretation Comments CULTURE (BEAKER) (test No growth in 5 days code = 1095) IMMATURE RETICULOCYTE [id number] 11:40:00 Test Item Value Reference Range Interpretation Comments IMMATURE RETIC FRACTION (BEAKER) 26.500 % 3.000-15.900 H . (test code = 1447) RETICULOCYTE COUNT PCT (BEAKER) 10.4 % 0.5-1.7 H (test code = 575) CBC W/PLT COUNT & AUTO [id number] 06:04:00 Test Item Value Reference Range Interpretation Comments WHITE BLOOD CELL COUNT (BEAKER) 14.3 K/ L 4.0-10.0 H (test code = 775) RED BLOOD CELL COUNT (BEAKER) 2.48 M/ L 4.00-5.00 L (test code = 761) HEMOGLOBIN (BEAKER) (test code = 7.5 GM/DL 12.0-15.5 L 410) HEMATOCRIT (BEAKER) (test code = 23.4 % 36.0-46.0 L 411) MEAN CORPUSCULAR VOLUME (BEAKER) 94.4 fL 82.0-99.0 (test code = 753) MEAN CORPUSCULAR HEMOGLOBIN 30.2 pg 27.0-33.0 (BEAKER) (test code = 751) MEAN CORPUSCULAR HEMOGLOBIN CONC 32.1 GM/DL 32.0-36.0 (BEAKER) (test code = 752) RED CELL DISTRIBUTION WIDTH 24.6 % 12.0-15.0 H (BEAKER) (test code = 412) PLATELET COUNT (BEAKER) (test 213 K/CU MM 150-430 code = 756) MEAN PLATELET VOLUME (BEAKER) 10.6 fL 6.0-11.5 (test code = 754) NUCLEATED RED BLOOD CELLS 1 /100 WBC 0-0 H (BEAKER) (test code = 413) NEUTROPHILS RELATIVE PERCENT 41 % (BEAKER) (test code = 429) LYMPHOCYTES RELATIVE PERCENT 33 % (BEAKER) (test code = 430) MONOCYTES RELATIVE PERCENT 23 % (BEAKER) (test code = 431) EOSINOPHILS RELATIVE PERCENT 2 % (BEAKER) (test code = 432) BASOPHILS RELATIVE PERCENT 0 % (BEAKER) (test code = 437) NEUTROPHILS ABSOLUTE COUNT 5.84 K/ L 1.80-8.00 (BEAKER) (test code = 670) LYMPHOCYTES ABSOLUTE COUNT 4.75 K/ L 1.48-4.50 H (BEAKER) (test code = 414) MONOCYTES ABSOLUTE COUNT (BEAKER) 3.32 K/ L 0.00-1.30 H (test code = 415) EOSINOPHILS ABSOLUTE COUNT 0.24 K/ L 0.00-0.50 (BEAKER) (test code = 416) BASOPHILS ABSOLUTE COUNT (BEAKER) 0.05 K/ L 0.00-0.20 (test code = 417) IMMATURE GRANULOCYTES-RELATIVE 0 % 0-0 PERCENT (BEAKER) (test code = 2801) (MANUAL DIFFERENTIAL)2019-07-13 06:04:00 Test Item Value Reference Range Interpretation Comments NEUTROPHILS - REL (DIFF) (BEAKER) 49 % (test code = 1359) LYMPHOCYTES - REL (DIFF) (BEAKER) 30 % (test code = 1360) MONOCYTES - REL (DIFF) (BEAKER) 18 % (test code = 1361) EOSINOPHILS - REL (DIFF) (BEAKER) 3 % (test code = 1362) NEUTROPHILS - ABS (DIFF) (BEAKER) 7.01 K/ L 1.80-8.00 (test code = 1365) LYMPHOCYTES - ABS (DIFF) (BEAKER) 4.29 K/ L 1.48-4.50 (test code = 1366) MONOCYTES - ABS (DIFF) (BEAKER) 2.57 K/ L 0.00-1.30 H (test code = 1367) EOSINOPHILS - ABS (DIFF) (BEAKER) 0.43 K/ L 0.00-0.50 (test code = 1368) TOTAL COUNTED (BEAKER) (test code 100 = 1351) MANUAL NRBC PER 100 CELLS 4 /100 WBC 0-0 H (BEAKER) (test code = 1353) WBC MORPHOLOGY (BEAKER) (test Normal code = 487) LARGE PLT(BEAKER) (test code = Present 2156) ANISOCYTOSIS (BEAKER) (test code 2+ moderate = 961) HYPOCHROMIA (BEAKER) (test code = 1+ few 963) SICKLE CELLS (BEAKER) (test code 1+ few = 767) TARGET CELLS (BEAKER) (test code 1+ few = 480) BASIC METABOLIC [id number] 05:32:00 Test Item Value Reference Range Interpretation Comments SODIUM (BEAKER) 139 meq/L 135-148 (test code = 381) POTASSIUM (BEAKER) 4.5 meq/L 3.6-5.5 (test code = 379) CHLORIDE (BEAKER) 106 meq/L 98-106 (test code = 382) CO2 (BEAKER) (test 26 meq/L 20-29 code = 355) BLOOD UREA NITROGEN 14 mg/dL 10-26 (BEAKER) (test code = 354) CREATININE (BEAKER) 0.67 mg/dL 0.50-1.20 (test code = 358) GLUCOSE RANDOM 95 mg/dL 70-110 (BEAKER) (test code = 652) CALCIUM (BEAKER) 9.9 mg/dL 8.5-10.5 (test code = 697) EGFR (BEAKER) (test 118 mL/min/1.73 ESTIM ATED GFR IS code = 1092) sq m NOT ACCURATE CREATININE CLEARANCE IN PREDICTING GLOMERULAR FILTRATION RATE . ESTIMATED GFR I S NOT APPLICABLE FOR DIALYSIS PATIEN TS. Prepare Leuko-Red & Irrad [id number] 23:55:00 Test Item Value Reference Range Interpretation Comments Unit ABO (test code = O Pos [id number]) UNIT NUMBER (test code = [id number] 934-0) Status (test code = 7015895) TX_TIMEINCHART Blood Bank Product (test code RED BLOOD CELLS = 2263) PRODUCT CODE (test code = O2715U28 933-2) CROSSMATCH (test code = 2264) COMPATIBLE [facility] W/PLT COUNT & AUTO [id number] 07:01:00 Test Item Value Reference Range Interpretation Comments WHITE BLOOD CELL COUNT (BEAKER) 17.6 K/ L 4.0-10.0 H (test code = 775) RED BLOOD CELL COUNT (BEAKER) 2.56 M/ L 4.00-5.00 L (test code = 761) HEMOGLOBIN (BEAKER) (test code = 7.7 GM/DL 12.0-15.5 L 410) HEMATOCRIT (BEAKER) (test code = 24.0 % 36.0-46.0 L 411) MEAN CORPUSCULAR VOLUME (BEAKER) 93.8 fL 82.0-99.0 (test code = 753) MEAN CORPUSCULAR HEMOGLOBIN 30.1 pg 27.0-33.0 (BEAKER) (test code = 751) MEAN CORPUSCULAR HEMOGLOBIN CONC 32.1 GM/DL 32.0-36.0 (BEAKER) (test code = 752) RED CELL DISTRIBUTION WIDTH 25.3 % 12.0-15.0 H (BEAKER) (test code = 412) PLATELET COUNT (BEAKER) (test 232 K/CU MM 150-430 code = 756) MEAN PLATELET VOLUME (BEAKER) 9.9 fL 6.0-11.5 (test code = 754) NUCLEATED RED BLOOD CELLS 1 /100 WBC 0-0 H (BEAKER) (test code = 413) NEUTROPHILS RELATIVE PERCENT 51 % (BEAKER) (test code = 429) LYMPHOCYTES RELATIVE PERCENT 24 % (BEAKER) (test code = 430) MONOCYTES RELATIVE PERCENT 23 % (BEAKER) (test code = 431) EOSINOPHILS RELATIVE PERCENT 1 % (BEAKER) (test code = 432) BASOPHILS RELATIVE PERCENT 0 % (BEAKER) (test code = 437) NEUTROPHILS ABSOLUTE COUNT 8.91 K/ L 1.80-8.00 H (BEAKER) (test code = 670) LYMPHOCYTES ABSOLUTE COUNT 4.24 K/ L 1.48-4.50 (BEAKER) (test code = 414) MONOCYTES ABSOLUTE COUNT (BEAKER) 4.10 K/ L 0.00-1.30 H (test code = 415) EOSINOPHILS ABSOLUTE COUNT 0.21 K/ L 0.00-0.50 (BEAKER) (test code = 416) BASOPHILS ABSOLUTE COUNT (BEAKER) 0.07 K/ L 0.00-0.20 (test code = 417) IMMATURE GRANULOCYTES-RELATIVE 0 % 0-0 PERCENT (BEAKER) (test code = 2801) (MANUAL DIFFERENTIAL)2019-07-12 07:01:00 Test Item Value Reference Range Interpretation Comments NEUTROPHILS - REL (DIFF) (BEAKER) 51 % (test code = 1359) LYMPHOCYTES - REL (DIFF) (BEAKER) 23 % (test code = 1360) MONOCYTES - REL (DIFF) (BEAKER) 22 % (test code = 1361) EOSINOPHILS - REL (DIFF) (BEAKER) 2 % (test code = 1362) ATYPICAL LYMPHOCYTE - REL (DIFF) 2 % 0-0 H (BEAKER) (test code = 260) NEUTROPHILS - ABS (DIFF) (BEAKER) 8.98 K/ L 1.80-8.00 H (test code = 1365) LYMPHOCYTES - ABS (DIFF) (BEAKER) 4.05 K/ L 1.48-4.50 (test code = 1366) MONOCYTES - ABS (DIFF) (BEAKER) 3.87 K/ L 0.00-1.30 H (test code = 1367) EOSINOPHILS - ABS (DIFF) (BEAKER) 0.35 K/ L 0.00-0.50 (test code = 1368) ATYPICAL LYMPHOCYTES - ABS (DIFF) 0.35 K/ L 0.00-0.00 H (BEAKER) (test code = 263) TOTAL COUNTED (BEAKER) (test code 100 = 1351) MANUAL NRBC PER 100 CELLS 2 /100 WBC 0-0 H (BEAKER) (test code = 1353) WBC MORPHOLOGY (BEAKER) (test Normal code = 487) PLT MORPHOLOGY (BEAKER) (test Normal code = 486) ANISOCYTOSIS (BEAKER) (test code 2+ moderate = 961) SICKLE CELLS (BEAKER) (test code 1+ few = 767) STOMATOCYTES (BEAKER) (test code 1+ few = 479) TARGET CELLS (BEAKER) (test code 1+ few = 480) CBC W/PLT COUNT & AUTO [id number] 05:35:00 Test Item Value Reference Range Interpretation Comments WHITE BLOOD CELL COUNT (BEAKER) 20.0 K/ L 4.0-10.0 H (test code = 775) RED BLOOD CELL COUNT (BEAKER) 2.16 M/ L 4.00-5.00 L (test code = 761) HEMOGLOBIN (BEAKER) (test code = 6.9 GM/DL 12.0-15.5 L 410) HEMATOCRIT (BEAKER) (test code = 21.0 % 36.0-46.0 LL 411) MEAN CORPUSCULAR VOLUME (BEAKER) 97.2 fL 82.0-99.0 (test code = 753) MEAN CORPUSCULAR HEMOGLOBIN 31.9 pg 27.0-33.0 (BEAKER) (test code = 751) MEAN CORPUSCULAR HEMOGLOBIN CONC 32.9 GM/DL 32.0-36.0 (BEAKER) (test code = 752) RED CELL DISTRIBUTION WIDTH 24.3 % 12.0-15.0 H (BEAKER) (test code = 412) PLATELET COUNT (BEAKER) (test 240 K/CU MM 150-430 code = 756) MEAN PLATELET VOLUME (BEAKER) 10.2 fL 6.0-11.5 (test code = 754) NUCLEATED RED BLOOD CELLS 1 /100 WBC 0-0 H (BEAKER) (test code = 413) NEUTROPHILS RELATIVE PERCENT 46 % (BEAKER) (test code = 429) LYMPHOCYTES RELATIVE PERCENT 32 % (BEAKER) (test code = 430) MONOCYTES RELATIVE PERCENT 20 % (BEAKER) (test code = 431) EOSINOPHILS RELATIVE PERCENT 1 % (BEAKER) (test code = 432) BASOPHILS RELATIVE PERCENT 0 % (BEAKER) (test code = 437) NEUTROPHILS ABSOLUTE COUNT 9.27 K/ L 1.80-8.00 H (BEAKER) (test code = 670) LYMPHOCYTES ABSOLUTE COUNT 6.45 K/ L 1.48-4.50 H (BEAKER) (test code = 414) MONOCYTES ABSOLUTE COUNT (BEAKER) 3.99 K/ L 0.00-1.30 H (test code = 415) EOSINOPHILS ABSOLUTE COUNT 0.13 K/ L 0.00-0.50 (BEAKER) (test code = 416) BASOPHILS ABSOLUTE COUNT (BEAKER) 0.04 K/ L 0.00-0.20 (test code = 417) IMMATURE GRANULOCYTES-RELATIVE 0 % 0-0 PERCENT (BEAKER) (test code = 2801) (MANUAL DIFFERENTIAL)2019-07-11 05:35:00 Test Item Value Reference Range Interpretation Comments NEUTROPHILS - REL (DIFF) (BEAKER) 50 % (test code = 1359) LYMPHOCYTES - REL (DIFF) (BEAKER) 40 % (test code = 1360) MONOCYTES - REL (DIFF) (BEAKER) 4 % (test code = 1361) MYELOCYTES-REL (DIFF) (BEAKER) 2 % 0-0 H (test code = 1594) ATYPICAL LYMPHOCYTE - REL (DIFF) 4 % 0-0 H (BEAKER) (test code = 260) NEUTROPHILS - ABS (DIFF) (BEAKER) 10.00 K/ L 1.80-8.00 H (test code = 1365) LYMPHOCYTES - ABS (DIFF) (BEAKER) 8.00 K/ L 1.48-4.50 H (test code = 1366) MONOCYTES - ABS (DIFF) (BEAKER) 0.80 K/ L 0.00-1.30 (test code = 1367) ATYPICAL LYMPHOCYTES - ABS (DIFF) 0.80 K/ L 0.00-0.00 H (BEAKER) (test code = 263) MYELOCYTES-ABS (DIFF) (BEAKER) 0.40 K/ L 0.00-0.00 H (test code = 1593) TOTAL COUNTED (BEAKER) (test code 100 = 1351) MANUAL NRBC PER 100 CELLS (BEAKER) 1 /100 WBC 0-0 H (test code = 1353) WBC MORPHOLOGY (BEAKER) (test code Normal = 487) LARGE PLT(BEAKER) (test code = Present 2156) ANISOCYTOSIS (BEAKER) (test code = 1+ few 961) SICKLE CELLS (BEAKER) (test code = 1+ few 767) TARGET CELLS (BEAKER) (test code = 1+ few 480) BASIC METABOLIC [id number] 04:57:00 Test Item Value Reference Range Interpretation Comments SODIUM (BEAKER) 139 meq/L 135-148 (test code = 381) POTASSIUM (BEAKER) 4.4 meq/L 3.6-5.5 (test code = 379) CHLORIDE (BEAKER) 111 meq/L 98-106 H (test code = 382) CO2 (BEAKER) (test 21 meq/L 20-29 code = 355) BLOOD UREA NITROGEN 13 mg/dL 10-26 (BEAKER) (test code = 354) CREATININE (BEAKER) 0.66 mg/dL 0.50-1.20 (test code = 358) GLUCOSE RANDOM 101 mg/dL 70-110 (BEAKER) (test code = 652) CALCIUM (BEAKER) 9.3 mg/dL 8.5-10.5 (test code = 697) EGFR (BEAKER) (test 120 mL/min/1.73 ESTIM ATED GFR IS code = 1092) sq m NOT ACCURATE CREATININE CLEARANCE IN PREDICTING GLOMERULAR FILTRATION RATE . ESTIMATED GFR I S NOT APPLICABLE FOR DIALYSIS PATIEN TS. BASIC METABOLIC [id number] 08:58:00 Test Item Value Reference Range Interpretation Comments SODIUM (BEAKER) 138 meq/L 135-148 (test code = 381) POTASSIUM (BEAKER) 4.4 meq/L 3.6-5.5 (test code = 379) CHLORIDE (BEAKER) 108 meq/L 98-106 H (test code = 382) CO2 (BEAKER) (test 22 meq/L 20-29 code = 355) BLOOD UREA NITROGEN 14 mg/dL 10-26 (BEAKER) (test code = 354) CREATININE (BEAKER) 0.70 mg/dL 0.50-1.20 (test code = 358) GLUCOSE RANDOM 108 mg/dL 70-110 (BEAKER) (test code = 652) CALCIUM (BEAKER) 9.4 mg/dL 8.5-10.5 (test code = 697) EGFR (BEAKER) (test 112 mL/min/1.73 ESTIM ATED GFR IS code = 1092) sq m NOT ACCURATE CREATININE CLEARANCE IN PREDICTING GLOMERULAR FILTRATION RATE . ESTIMATED GFR I S NOT APPLICABLE FOR DIALYSIS PATIEN TS. CBC W/PLT COUNT & AUTO [id number] 07:52:00 Test Item Value Reference Range Interpretation Comments WHITE BLOOD CELL COUNT (BEAKER) 20.9 K/ L 4.0-10.0 H (test code = 775) RED BLOOD CELL COUNT (BEAKER) 2.21 M/ L 4.00-5.00 L (test code = 761) HEMOGLOBIN (BEAKER) (test code = 7.1 GM/DL 12.0-15.5 L 410) HEMATOCRIT (BEAKER) (test code = 21.3 % 36.0-46.0 L 411) MEAN CORPUSCULAR VOLUME (BEAKER) 96.4 fL 82.0-99.0 (test code = 753) MEAN CORPUSCULAR HEMOGLOBIN 32.1 pg 27.0-33.0 (BEAKER) (test code = 751) MEAN CORPUSCULAR HEMOGLOBIN CONC 33.3 GM/DL 32.0-36.0 (BEAKER) (test code = 752) RED CELL DISTRIBUTION WIDTH 24.4 % 12.0-15.0 H (BEAKER) (test code = 412) PLATELET COUNT (BEAKER) (test 242 K/CU MM 150-430 code = 756) MEAN PLATELET VOLUME (BEAKER) 9.7 fL 6.0-11.5 (test code = 754) NUCLEATED RED BLOOD CELLS 2 /100 WBC 0-0 H (BEAKER) (test code = 413) (MANUAL DIFFERENTIAL)2019-07-10 07:52:00 Test Item Value Reference Range Interpretation Comments NEUTROPHILS - REL (DIFF) (BEAKER) 47 % (test code = 1359) LYMPHOCYTES - REL (DIFF) (BEAKER) 37 % (test code = 1360) MONOCYTES - REL (DIFF) (BEAKER) 1 % (test code = 1361) EOSINOPHILS - REL (DIFF) (BEAKER) 1 % (test code = 1362) METAMYELOCYTES-REL (DIFF) 9 % 0-0 H (BEAKER) (test code = 258) MYELOCYTES-REL (DIFF) (BEAKER) 5 % 0-0 H (test code = 1594) NEUTROPHILS - ABS (DIFF) (BEAKER) 9.82 K/ L 1.80-8.00 H (test code = 1365) LYMPHOCYTES - ABS (DIFF) (BEAKER) 7.73 K/ L 1.48-4.50 H (test code = 1366) MONOCYTES - ABS (DIFF) (BEAKER) 0.21 K/ L 0.00-1.30 (test code = 1367) EOSINOPHILS - ABS (DIFF) (BEAKER) 0.21 K/ L 0.00-0.50 (test code = 1368) METAMYELOCTYES - ABS (DIFF) 1.88 K/ L 0.00-0.00 H (BEAKER) (test code = 261) MYELOCYTES-ABS (DIFF) (BEAKER) 1.05 K/ L 0.00-0.00 H (test code = 1593) TOTAL COUNTED (BEAKER) (test code 100 = 1351) PLT MORPHOLOGY (BEAKER) (test Normal code = 486) TOXIC GRANULATION (BEAKER) (test Present code = 771) ELLIPTOCYTES (BEAKER) (test code 1+ few = 962) POLYCHROMATOPHILLIC RBCS(BEAKER) 1+ few (test code = 478) SICKLE CELLS (BEAKER) (test code 2+ moderate = 767) TARGET CELLS (BEAKER) (test code 1+ few = 480) TEAR DROP CELLS (BEAKER) (test 1+ few code = 481) CBC W/PLT COUNT & AUTO [id number] 11:40:00 Test Item Value Reference Range Interpretation Comments WHITE BLOOD CELL COUNT (BEAKER) 16.3 K/ L 4.0-10.0 H (test code = 775) RED BLOOD CELL COUNT (BEAKER) 2.05 M/ L 4.00-5.00 L (test code = 761) HEMOGLOBIN (BEAKER) (test code = 6.5 GM/DL 12.0-15.5 L 410) HEMATOCRIT (BEAKER) (test code = 19.5 % 36.0-46.0 LL 411) MEAN CORPUSCULAR VOLUME (BEAKER) 95.1 fL 82.0-99.0 (test code = 753) MEAN CORPUSCULAR HEMOGLOBIN 31.7 pg 27.0-33.0 (BEAKER) (test code = 751) MEAN CORPUSCULAR HEMOGLOBIN CONC 33.3 GM/DL 32.0-36.0 (BEAKER) (test code = 752) RED CELL DISTRIBUTION WIDTH 27.9 % 12.0-15.0 H (BEAKER) (test code = 412) PLATELET COUNT (BEAKER) (test 251 K/CU MM 150-430 code = 756) MEAN PLATELET VOLUME (BEAKER) 10.3 fL 6.0-11.5 (test code = 754) NUCLEATED RED BLOOD CELLS 2 /100 WBC 0-0 H (BEAKER) (test code = 413) NEUTROPHILS RELATIVE PERCENT 48 % (BEAKER) (test code = 429) LYMPHOCYTES RELATIVE PERCENT 30 % (BEAKER) (test code = 430) MONOCYTES RELATIVE PERCENT 19 % (BEAKER) (test code = 431) EOSINOPHILS RELATIVE PERCENT 2 % (BEAKER) (test code = 432) BASOPHILS RELATIVE PERCENT 0 % (BEAKER) (test code = 437) NEUTROPHILS ABSOLUTE COUNT 7.88 K/ L 1.80-8.00 (BEAKER) (test code = 670) LYMPHOCYTES ABSOLUTE COUNT 4.86 K/ L 1.48-4.50 H (BEAKER) (test code = 414) MONOCYTES ABSOLUTE COUNT (BEAKER) 3.11 K/ L 0.00-1.30 H (test code = 415) EOSINOPHILS ABSOLUTE COUNT 0.34 K/ L 0.00-0.50 (BEAKER) (test code = 416) BASOPHILS ABSOLUTE COUNT (BEAKER) 0.05 K/ L 0.00-0.20 (test code = 417) IMMATURE GRANULOCYTES-RELATIVE 0 % 0-0 PERCENT (BEAKER) (test code = 2801) [id number] 05:32:00 Test Item Value Reference Range Interpretation Comments MAGNESIUM (BEAKER) (test code = 1.7 mg/dL 1.5-3.0 627) BASIC METABOLIC [id number] 05:30:00 Test Item Value Reference Range Interpretation Comments SODIUM (BEAKER) 137 meq/L 135-148 (test code = 381) POTASSIUM (BEAKER) 5.0 meq/L 3.6-5.5 (test code = 379) CHLORIDE (BEAKER) 105 meq/L 98-106 (test code = 382) CO2 (BEAKER) (test 25 meq/L 20-29 code = 355) BLOOD UREA NITROGEN 15 mg/dL 10-26 (BEAKER) (test code = 354) CREATININE (BEAKER) 0.67 mg/dL 0.50-1.20 (test code = 358) GLUCOSE RANDOM 96 mg/dL 70-110 (BEAKER) (test code = 652) CALCIUM (BEAKER) 9.3 mg/dL 8.5-10.5 (test code = 697) EGFR (BEAKER) (test 118 mL/min/1.73 ESTIM ATED GFR IS code = 1092) sq m NOT ACCURATE CREATININE CLEARANCE IN PREDICTING GLOMERULAR FILTRATION RATE . ESTIMATED GFR I S NOT APPLICABLE FOR DIALYSIS PATIEN TS. [id number] 05:25:00 Test Item Value Reference Range Interpretation Comments Potassium (test code = 2823-3) 5.0 meq/L 3.6-5.5 Lab Interpretation (test code = Normal 22031-3) [facility] 05:25:00 Test Item Value Reference Range Interpretation Comments POTASSIUM (BEAKER) (test code = 5.0 meq/L 3.6-5.5 379) CRITICAL [id number] 00:11:29Lencho Baptiste III, DO 10/20/2019 12:43 AMCritical CarePerformed by: Lencho Baptiste III, DOAuthorized by: Radha Sotomayor MD Total critical care time: 35 minutesCritical care time was exclusive of separately billable procedures and treating other patients.Critical care was necessary to treat or prevent imminent or life-threatening deterioration of the following conditions: dehydration and metabolic crisis.Critical care was time spent personally by me on the following activities: discussions with con sultants, discussions with primary provider, evaluation of patient's response to treatment, examination of patient, obtaining history from patient or surrogate, ordering and performing treatments and interventions, ordering and review of laboratory studies, ordering and review of radiographic studies,pulse oximetry, re-evaluation of patient's condition and review of old charts.[facility] HospitalECG/EKG [id number] 00:11:29Lencho Baptiste III, DO 10/20/2019 12:43 AMECG/EKG InterpretationDate/Time: 07/08/2019 7:00 PMPerformed by: Lencho Baptiste III, DOAuthorized by: Radha Sotomayor MD The ECG was interpreted by ED physician. This ECG was not compared with previous ECG(s).The ECG is interpreted as sinus rhythm. Rate is normal rate. Heart rate is 95 BPM.Conduction: conduction normal. ST segments normal. T waves normal. Clinical Impression: normal ECGECG reviewed and does not meet STEMI criteria. Patient tolerance: Patient tolerated the procedure well with no immediate complications [facility] HospitalRAD, [facility]ST, 1 VIEW, NON [id number] 20:10:00 Reason for exam:->chest painIs the patient ?->NoShould this be performed at the bedside?->YesFINAL REPORT Chest, 1 view. History: Chest pain Comparison: Plain radiographthe chest dated 01/07/2019.. IMPRESSION:Left chest wall Port-A-Cath with tip overlying the cavoatrialjunction. Enlarged cardiac mediastinal silhouette is likely exaggerated by technique. No lobar consolidation. Discoid atelectasis in the left base. No pleural effusion or pneumothorax. Osseous structures are grossly unremarkable. Signed: Dinah Giordano Verified Date/Time: 07/08/2019 20:10:40 Urinalysis w/[id number] 19:36:00 Test Item Value Reference Range Interpretation Comments Color, UA (test code = 5778-6) Yellow Clarity, UA (test code = 5767-9) Clear Specific [place], UA (test code = 1.010 1.001-1.035 5811-5) pH, UA (test code = 5803-2) 8.5 5.0-8.0 H Protein, UA (test code = 31317-8) Negative Negative Glucose, UA (test code = 365) Negative Negative Ketones, UA (test code = 2514-8) Negative Negative Bilirubin, UA (test code = 38221-1) Negative Negative Blood, UA (test code = 51515-7) Trace Negative A Nitrite, UA (test code = 5802-4) Negative Negative Leukocytes, UA (test code = 5799-2) Negative Negative Urobilinogen, UA (test code = 2.0 mg/dL 0.2-1 H 48580-8) Bacteria, UA (test code = 31498-9) None Seen Amorphous Crystals (test code = Moderate 19076-5) RBC, UA (test code = 799-7) None Seen /HPF WBC, UA (test code = 56838-3) None Seen /HPF SQUAMOUS EPITHELIAL (test code = <5 /HPF 69583-5) Specimen Source (test code = 2795) Lab Interpretation (test code = Abnormal 05345-0) [facility] HospitalURINALYSIS W/ [id number] 19:36:00 Test Item Value Reference Range Interpretation Comments COLOR (BEAKER) (test code = Yellow 470) CLARITY (BEAKER) (test code = Clear 469) SPECIFIC GRAVITY UA (BEAKER) 1.010 1.001-1.035 (test code = 468) PH UA (BEAKER) (test code = 8.5 5.0-8.0 H 467) PROTEIN UA (BEAKER) (test code Negative Negative = 464) GLUCOSE UA (BEAKER) (test code Negative Negative = 365) KETONES UA (BEAKER) (test code Negative Negative = 371) BILIRUBIN UA (BEAKER) (test Negative Negative code = 462) BLOOD UA (BEAKER) (test code = Trace Negative A 461) NITRITE UA (BEAKER) (test code Negative Negative = 465) LEUKOCYTE ESTERASE UA (BEAKER) Negative Negative (test code = 466) UROBILINOGEN UA (BEAKER) (test 2.0 mg/dL 0.2-1.0 H code = 463) BACTERIA (BEAKER) (test code = None Seen 517) AMORPHOUS CRYSTALS (BEAKER) Moderate (test code = 1584) RBC UA-MANUAL (BEAKER) (test None Seen /HPF code = 1659) WBC UA-MANUAL (BEAKER) (test None Seen /HPF code = 1661) SQUAMOUS EPITHELIAL MANUAL <5 /HPF (BEAKER) (test code = 1663) SOURCE(BEAKER) (test code = 2795) SCREEN, [id number] 19:25:00 Test Item Value Reference Range Interpretation Comments TEST URINE (BEAKER) (test Negative code = 583) TROPONIN [id number] 19:16:00 Test Item Value Reference Range Interpretation Comments TROPONIN I (BEAKER) (test code = [...] 2019-07-08 19:12:00 Test Item Value Reference Range Interpretation Comments WHITE BLOOD CELL COUNT (BEAKER) 20.2 K/ L 4.0-10.0 H (test code = 775) RED BLOOD CELL COUNT (BEAKER) 2.17 M/ L 4.00-5.00 L (test code = 761) HEMOGLOBIN (BEAKER) (test code = 6.9 GM/DL 12.0-15.5 L 410) HEMATOCRIT (BEAKER) (test code = 21.0 % 36.0-46.0 LL 411) MEAN CORPUSCULAR VOLUME (BEAKER) 96.8 fL 82.0-99.0 (test code = 753) MEAN CORPUSCULAR HEMOGLOBIN 31.8 pg 27.0-33.0 (BEAKER) (test code = 751) MEAN CORPUSCULAR HEMOGLOBIN CONC 32.9 GM/DL 32.0-36.0 (BEAKER) (test code = 752) RED CELL DISTRIBUTION WIDTH 28.5 % 12.0-15.0 H (BEAKER) (test code = 412) PLATELET COUNT (BEAKER) (test 245 K/CU MM 150-430 code = 756) MEAN PLATELET VOLUME (BEAKER) 10.2 fL 6.0-11.5 (test code = 754) NUCLEATED RED BLOOD CELLS 3 /100 WBC 0-0 H (BEAKER) (test code = 413) NEUTROPHILS RELATIVE PERCENT 48 % (BEAKER) (test code = 429) LYMPHOCYTES RELATIVE PERCENT 31 % (BEAKER) (test code = 430) MONOCYTES RELATIVE PERCENT 19 % (BEAKER) (test code = 431) EOSINOPHILS RELATIVE PERCENT 2 % (BEAKER) (test code = 432) BASOPHILS RELATIVE PERCENT 0 % (BEAKER) (test code = 437) NEUTROPHILS ABSOLUTE COUNT 9.66 K/ L 1.80-8.00 H (BEAKER) (test code = 670) LYMPHOCYTES ABSOLUTE COUNT 6.18 K/ L 1.48-4.50 H (BEAKER) (test code = 414) MONOCYTES ABSOLUTE COUNT (BEAKER) 3.80 K/ L 0.00-1.30 H (test code = 415) EOSINOPHILS ABSOLUTE COUNT 0.35 K/ L 0.00-0.50 (BEAKER) (test code = 416) BASOPHILS ABSOLUTE COUNT (BEAKER) 0.08 K/ L 0.00-0.20 (test code = 417) IMMATURE GRANULOCYTES-RELATIVE 1 % 0-0 H PERCENT (BEAKER) (test code = 2801) (MANUAL DIFFERENTIAL)2019-07-08 19:12:00 Test Item Value Reference Range Interpretation Comments TOTAL COUNTED (BEAKER) (test code = 1351) WBC MORPHOLOGY (BEAKER) (test Normal code = 487) PLT MORPHOLOGY (BEAKER) (test Normal code = 486) ANISOCYTOSIS (BEAKER) (test code 3+ many = 961) POLYCHROMATOPHILLIC RBCS(BEAKER) 1+ few (test code = 478) SICKLE CELLS (BEAKER) (test code 2+ moderate = 767) SPHEROCYTES (BEAKER) (test code = 1+ few 768) TARGET CELLS (BEAKER) (test code 2+ moderate = 480) BASIC METABOLIC [id number] 19:07:00 Test Item Value Reference Range Interpretation Comments SODIUM (BEAKER) 138 meq/L 135-148 (test code = 381) POTASSIUM (BEAKER) 6.4 meq/L 3.6-5.5 HH (test code = 379) CHLORIDE (BEAKER) 106 meq/L 98-106 (test code = 382) CO2 (BEAKER) (test 23 meq/L 20-29 code = 355) BLOOD UREA NITROGEN 14 mg/dL 10-26 (BEAKER) (test code = 354) CREATININE (BEAKER) 0.74 mg/dL 0.50-1.20 (test code = 358) GLUCOSE RANDOM 87 mg/dL 70-110 (BEAKER) (test code = 652) CALCIUM (BEAKER) 9.7 mg/dL 8.5-10.5 (test code = 697) EGFR (BEAKER) (test 105 mL/min/1.73 ESTIM ATED GFR IS code = 1092) sq m NOT ACCURATE CREATININE CLEARANCE IN PREDICTING GLOMERULAR FILTRATION RATE . ESTIMATED GFR I S NOT APPLICABLE FOR DIALYSIS PATIEN TS. Specimen slightly [id number] 19:07:00 Test Item Value Reference Range Interpretation Comments MAGNESIUM (BEAKER) (test code = 1.9 mg/dL 1.5-3.0 627) RETICULOCYTE [id number] 19:03:00 Test Item Value Reference Range Interpretation Comments RETICULOCYTE COUNT PCT (BEAKER) (test 23.6 % 0.4-2.9 H code = 575) CBC with platelet and irtjklyipyde3356-71-23 11:57:18 Test Item Value Reference Range Interpretation Comments WBC (test code = 17696-1) 12.6 4.5- 11.0 k/uL H WBC was corrected for NRBCs RBC (test code = 11166-0) 2.24 m/uL 4.2-5.5 L HGB (test code = 718-7) 6.7 g/dL 12-16 LL Resu lt reviewed and called with echo lovelace back to Klaudia Cruz RN/6E 06: 46 06/23/2019 slel HCT (test code = 4544-3) 21.1 % 37-47 L MCV (test code = 787-2) 94.2 fL 82-100 MCH (test code = 785-6) 29.9 pg 27-34 MCHC (test code = 786-4) 31.8 g/dL 31-37 RDW - SD (test code = 87.6 fL 37-55 H 58664-8) MPV (test code = 57732-1) 11.2 fL 6.9-11 H Platelet count (test code 142 K/uL 150-400 L = 29072-2) Nucleated RBC (test code 10.30 /100 WBC = 92853-8) Neutrophils (test code = 57.0 % 39-69 10217-2) Lymphocytes (test code = 30.0 % 25-45 96042-7) Monocytes (test code = 11.0 % 0-10 H 13598-7) Eosinophils (test code = 2.0 % 0-5 48259-7) Basophils (test code = 1.0 % 0-1 43889-8) Lab Interpretation (test Abnormal code = 09054-8) [facility] [id number] 11:57:18 Test Item Value Reference Range Interpretation Comments Manual differential PERFORMED (test code = 14664-0) Neutrophils (test code 57.0 % 39-69 = 36918-4) Lymphocytes (test code 30.0 % 25-45 = 27152-1) Monocytes (test code = 11.0 % 0-10 H 62624-7) Eosinophils (test code 2.0 % 0-5 = 30578-6) Basophils (test code = 1.0 % 0-1 09926-3) Nucleated RBC (test 14 /100 WBC NRBC res ults have code = 42916-3) been factore d into the WBC count. No further calcula tion is needed. Platelet slide review Reggie slt decr A (test code = 54552-4) Dohle bodies (test Occasional code = 7792-5) Toxic granulation Slight (test code = 803-7) Neutrophils, Slight vacuolated (test code = 43264-4) Anisocytosis (test Moderate code = 702-1) Polychromasia (test Moderate code = 72603-3) Schistocytes (test Occasional code = 800-3) Target cells (test Many A code = 21300-3) Sickle cells (test Occasional A code = 801-1) [place]ili bodies Occasional (test code = 7793-3) Enlarged platelets Moderate A (test code = 51441-4) Giant platelets (test Occasional code = 5908-9) Elliptocytes (test Moderate A code = 69916-0) Lab Interpretation Abnormal (test code = 76797-3) [facility]Basic metabolic rqmou1144-30-71 06:55:50 Test Item Value Reference Range Interpretation Comments Sodium (test code = 2951-2) 141 135- 148 mEq/L Potassium (test code = 2823-3) 5.3 3.5- 5.0 mEq/L H Chloride (test code = 2075-0) 103 98- 112 mEq/L CO2 (test code = 8-9) 30 24- 31 mEq/L Anion gap (test code = 69025-6) 8@ANIO 7- 15 mEq/L BUN (test code = 3094-0) 6 mg/dL 6-20 Creatinine (test code = 2160-0) 0.46 mg/dL 0.5-0.9 L Glucose (test code = 2345-7) 113 mg/dL 65-99 H Calcium (test code = 59505-0) 9.2 mg/dL 8.3-10.2 Lab Interpretation (test code = Abnormal 12995-5) [facility] MethodistEstimated [id number] 06:55:50 Test Item Value Reference Range Interpretation Comments Estimated GFR (test >=90 mL/min/1.73 m2 Caterg ory Units code = 5488) InterpretationG 1 >=90 Normal or highG2 60-89 Mildly jrqkcnazaZ0e 45-59 Mildly to mode rately lulgrhaguH2g 30-44 Moderately to severely decreasedG4 15-29 Severely decre asedG5 <15 Kidn ey failureThe eGFR was calculated michele pinedo the Chronic Kidney Disease Epidemiology Co llaboration (CKD-EPI) equat ion. Interpretation is based on recommendations of the National Kidney Foundation-Kidn ey Disease Outcomes Qualit y Initiative (NKF-KDOQI) pub lished in 2014. [facility] MethodistBlood culture, aerobic & ntoeetagr3004-17-70 06:03:06 Test Item Value Reference Range Interpretation Comments Blood culture No growth Specimen isolate (test after 5 days InformationSpe cimen code = 600-7) of Source: BloodS pecimen incubation. Site: Antecubit al, right [place] Toñomear tksyvb2832-14-73 10:51:14 Test Item Value Reference Range Interpretation Comments Platelet slide review (test code Reggie adequate = 84174-5) Anisocytosis (test code = 702-1) Moderate Target cells (test code = Many A 44649-3) Ovalocytes (test code = 774-0) Moderate Sickle cells (test code = 801-1) Occasional A [place] bodies (test code = Occasional 7793-3) Elliptocytes (test code = Occasional 15286-7) Lab Interpretation (test code = Abnormal 49423-7) [place] YazdanismMagnesium gydto7908-70-75 07:51:17 Test Item Value Reference Range Interpretation Comments Magnesium (test code = 31674-8) 1.6 mg/dL 1.6-2.6 [place] YazdanismPrepare RBC, 2 Ctwcb5867-99-03 04:45:00 Test Item Value Reference Range Interpretation Comments Product name (test code Red Blood Cells -1, = 25) Leukored Unit number (test code [id number] = 2028627) Product code (test code [id number] = 3092) Dispense status (test Transfused code = 24) Blood expiration date [id number] (test code = 302) Blood type code (test 5100 code = 308) Blood type (test code = O POSITIVE 1314) Compatibility (test Compatible code = 6400) [facility] YazdanismPOC qffhanz8539-66-06 21:00:19 Test Item Value Reference Range Interpretation Comments POC glucose (test code 101 mg/dL 65-99 H RN No tifiedMeter ID: = [id number]) [id number] tor: Zeb Smith Lab Interpretation Abnormal (test code = 60525-3) [place] Abdomen Fiazuujg8480-47-44 08:27:12Hm Interface, Radiology Results - 06/19/2019 8:30 AM CDTEXAM: US ABDOMEN COMPLETECLINICAL D LARISSA: transaminitisTECHNIQUE: Sonographic evaluation of the abdomen was performed.COMPARISON: NONE.IMPRESSION:1.Coarse hepatic echotexture and undulating contour, suspicious for cirrhosis. There are nodiscrete lesions. There is no evidence of intrahepatic biliary ductal dilation The common bile duct is ectatic, likely postcholecystectomy change. The portal vein is patent with normal hepatopetal flow. 2.Cholecystectomy.3.Limited views of the pancreas are unremarkable. 4.Complex cyst in the right kidney with thick and septated wall as well as punctate echogenic foci/possible calcifications. Recommend multiphase renal protocol CT for further characterization. The kidneys are normal size. The kidneyshave normal echogenicity. Vascular flow is unremarkable. There is no evidence of hydronephrosis, perinephric fluid, or calculus.5.Splenectomy.6.No evidence of ascites.7.Inferior vena cava and aorta were not definitively visualized due to overlying bowel gas. [id number] [facility] MethodistIonized [id number] 06:50:49 Test Item Value Reference Range Interpretation Comments pH (test code = 2753-2) 7.27 Ionized calcium (test code = 1.26 mmol/L 1.11-1.32 ) [facility]G 12 ikgo7439-40-52 20:24:23 Test Item Value Reference Range Interpretation Comments Ventricular rate (test 92 code = 253) Atrial rate (test code = 92 255) NC interval (test code = 180 266) QRSD interval (test code 88 = 260) QT interval (test code = 380 264) QTC interval (test code 469 = 265) P axis 1 (test code = 58 267) QRS axis 1 (test code = 23 268) T wave axis (test code = 51 270) EKG impression (test Normal sinus code = 273) rhythm-Minimal voltage criteria for LVH, may be normal variant-Borderline ECG-No previous ECGs available-Electronica lly Signed By Gold VERAS, Kelvin Sanchez (2008) on 06/18/2019 8:24:22 PM [facility] MethodistHemoglobin & bocmjqouxe4677-98-14 18:10:09 Test Item Value Reference Range Interpretation Comments HGB (test code = 718-7) 7.2 g/dL 12-16 L HCT (test code = 4544-3) 22.7 % 37-47 L Lab Interpretation (test code = Abnormal 00117-4) [facility] MethodistXR Shoulder 2+ Vw Howgw0196-40-09 14:11:29Hm Interface, Radiology Results Incoming - 06/18/2019 2:14 PM CDTEXAMINATION: XR SHOULDER 2 VW RIGHTCLINICAL HISTORY: Humerus fractureCOMPARISON: None.IMPRESSION:1. Transverse fracture through theright mid humeral diaphysis demonstrates medial displacement of the distal fragment by one full shaft width, likely with at least half shaft width anterior displacement.2. Glenohumeral and acromioclavic ular relationships are within normal limits.Findings were discussed with patient's nurse at 1411. They are aware of the fracture.[facility]-[id number] MethodistAntibody ptoppqgxlqmepg6889-87-37 07:18:00 Test Item Value Reference Range Interpretation Comments Antibody ID POS, Undetermined Patient abdi s a history (test code = Specificity of Anti-c, Anti -E, 41736-0) Anti-Cw, Anti-S , Anti-Wra and ac old agglutinin. Al l of the alloantibod ies can cause red cell damage andare clinical ly significant. R ed cells for trans fusion willphenotypica lly matched, sickle cell negative and crossmatch compatible.Veri fied by 3176. [place] IrmvbvwxsXxfqbbm3210-64-35 07:13:00 Test Item Value Reference Range Interpretation Comments Elution (test code = 883-9) NEG [facility] MethodistPositive MEGHAN reflex with ldohxt0810-10-25 07:12:00 Test Item Value Reference Range Interpretation Comments IgG Aren, gel (test code = 1590) POS Anti-complement (test code = 1004-1) NEG [facility]' (MEGHAN)2019-06-18 07:11:00 Test Item Value Reference Range Interpretation Comments Rber-MvK-[id number] Polyspecific (test code = POS 2585) [facility] Antigen patient typing (little e)2019-06-18 07:10:00 Test Item Value Reference Range Interpretation Comments e Antigen Patient Typing (little e) POS (test code = 2605) [facility] antigen patient [id number] 07:08:00 Test Item Value Reference Range Interpretation Comments [place] Antigen Patient Typing (test code NEG = 2616) [facility] Antigen patient typing (little c)2019-06-18 07:07:00 Test Item Value Reference Range Interpretation Comments c Antigen Patient Typing (little c) NEG (test code = 2591) [facility] patient [id number] 07:05:00 Test Item Value Reference Range Interpretation Comments E Antigen Patient Typing (test code = NEG 2604) [facility] [id number] 07:04:00 Test Item Value Reference Range Interpretation Comments C Antigen Patient Typing (test code = POS 2590) [facility]71[facility]90 05:56:31 Test Item Value Reference Range Interpretation Comments Troponin (test code 0.006 ng/mL 0-0.04 [facility] = 28433-5) Laboratories ch anged methodology eff ective: 12/24/2018 at 10: 00 amThe new method has a 99th percentile cuto ff of 0.040 ng/mL [facility] [id number] 01:33:06 Test Item Value Reference Range Interpretation Comments Potassium (test code = 2823-3) 4.2 3.5- 5.0 mEq/L [facility] [place] and [id number] 00:06:00 Test Item Value Reference Range Interpretation Comments ABO grouping (test code O = 883-9) Rh type (test code = POS 73876-7) Antibody screen (gel) POS Result s called to (test code = 890-4) Cristal Montes , RN 06/18/19 at 00: 05 with readback.Specim en sent to [facility] for antibo dy identification. Allow 4-6 hours for dani tible blood if needed . [facility] [id number] 23:47:48 Test Item Value Reference Range Interpretation Comments Sodium (test code = 137 135- 148 mEq/L 2951-2) Potassium (test code = 5.7 3.5- 5.0 mEq/L H Spe cimen slightly 2823-3) hemolyzed. Interpret resul ts accordingly. Chloride (test code = 107 98- 112 mEq/L 5-0) CO2 (test code = 8-9) 22 24- 31 mEq/L L Anion gap (test code = 8@ANIO 7- 15 mEq/L 17887-2) BUN (test code = 3094-0) 11 mg/dL 6-20 Creatinine (test code = 0.60 mg/dL 0.5-0.9 2160-0) Glucose (test code = 90 mg/dL 65-99 2345-7) Calcium (test code = 9.5 mg/dL 8.3-10.2 58421-3) Protein (test code = 8.7 g/dL 6.3-8.3 H 2885-2) Albumin (test code = 3.6 g/dL 3.5-5 1751-7) A/G ratio (test code = 0.7 0.7-3.8 1759-0) Alkaline phosphatase 146 U/L 35-104 H (test code = 6768-6) AST (test code = 1920-8) 210 U/L 10-35 H ALT (test code = 1742-6) 88 U/L 5-50 H Total bilirubin (test 2.5 mg/dL 0.2-1.2 H code = 1974-2) Lab Interpretation (test Abnormal code = 18801-5) [facility] [id number] 23:47:48 Test Item Value Reference Range Interpretation Comments Phosphorus (test code = 2777-1) 4.2 mg/dL 2.4-4.5 [facility] MethodistLactic acid [id number] 23:30:12 Test Item Value Reference Range Interpretation Comments Lactic acid (test code = 00400-9) 0.7 mmol/L 0.5-2.2 [facility]Urine [id number] 22:53:35 Test Item Value Reference Range Interpretation Comments Urine culture (test SEE COMMENT Bacteriu aileen screen code = 3232213) negative. [place] [facility]Urinalysis screen and microscopy, with reflex to culture 2019-06-17 22:53:34 Test Item Value Reference Range Interpretation Comments Specimen site (test code = Clean catch 9425194) Color, UA (test code = 5778-6) Yellow Appearance, UA (test code = Clear 5767-9) Specific gravity, UA (test code = 1.012 1.001-1.030 5811-5) pH, UA (test code = 5803-2) 5.0 5.0-9.0 Protein, UA (test code = 78502-8) Negative Negative Glucose, UA (test code = 56166-4) Negative Negative Ketones, UA (test code = 2514-8) Negative Negative Bilirubin, UA (test code = Negative Negative 5770-3) Blood, UA (test code = 5794-3) Small Negative A Nitrite, UA (test code = 5802-4) Negative Negative Urobilinogen, UA (test code = <2.0 <2.0 E.U./dL 24867-7) Leukocyte esterase, UA (test code Negative Negative = 5799-2) Epithelial cells, UA (test code = 2 /HPF 5787-7) Round epithelial cells, UA (test <1 0- 5 /HPF code = 09133-3) WBC, UA (test code = 5821-4) 2 0- 4 /HPF RBC, UA (test code = 50979-3) 3 0- 5 /HPF Bacteria, UA (test code = Few None seen 21853-0) Yeast, UA (test code = 99037-6) None seen Yeast with pseudohyphae, UA (test None seen code = 56758-9) Hyaline casts, UA (test code = 0-2 /LPF 5796-8) Lab Interpretation (test code = Abnormal 27384-8) [facility] [id number] 22:10:00Charlee Norton NP-C 06/17/2019 10:32 [facility]ML[facility] midlineDate/Time: 06/17/2019 10:10 PMPerformed by: Charlee Norton NP-CAuthorized by: Charlee Norton NP-C Consent: Consent obtained: Verbal Consent given by: Patient Risks discussed: Bleeding, incomplete drainage, infection, nerve damage, pain and poor cosmetic result Alternatives discussed: Delayed treatmentUniversal protocol: Procedure explained and questions answered to patient or proxy's satisfaction: yes Relevant documents present and verified: yes Test results available and properly labeled: yes Imaging studies available: yes Required blood products, implants, devices, and special equipment available: yes Immediately prior to procedure, a time out was called: yes Patient identity confirmed: Verbally with patient and hospital-assigned identification numberIndications: Indications: No peripheral access, malfunctioned RCW portPre-procedure details: Skin preparation: ChloraPrep Preparation:Patient was prepped and draped in the usual sterile fashion Anesthesia (see MAR for exact dosages): Anesthesia method: Local infiltration Local anesthetic: Lidocaine 1% w/o epiPost- procedure details: Patient tolerance of procedure: Tolerated well, no immediate complicationsShenandoah MethodistXR Chest 1 Vw [id number] 21:15:42Hm Interface, Radiology Results 06/17/2019 9:18 PM CDTEXAMINATION: XR CHEST 1 VW PORTABLECLINICAL HISTORY: ICU pt stable with no clinical status changesCOMPARISON: NoneIMPRESSION:1. Thecardiac silhouette is mildly enlarged. Vasculature is within normal limits.2. There is no confluent i nfiltrate or effusion.3. Portacatheter tip is in the SVC. There is no acute osseous pathology.[facility]-[id number] MethodistCT, CHEST WITH IV CONTRAST- PE TEST [id number] 09:54:00FINAL REPORT INDICATION: Acute chest pain. COMPARISON:Chest [...] Hepatomegaly with irregular contour suggesting cirrhosis. Signed: Karla Denson MDReport Verified Date/Time: 01/08/2019 09:54:01 Reading Location: [facility] B1 C013Y CT Body Reading Room CREATINE KINASE (CK)2019-01-08 02:25:00 Test Item Value Reference Range Interpretation Comments CREATINE KINASE TOTAL (BEAKER) (test 7 U/L 29-200 L code = 380) TROPONIN [id number] 01:38:00 Test Item Value Reference Range Interpretation Comments TROPONIN I (BEAKER) (test code = [...] acidosis, acute neurological disease, and persistent tachyarrhythmia.TROPONIN [id number] 19:01:00 Test Item Value Reference Range Interpretation Comments TROPONIN I (BEAKER) (test code = [...] (CK)2019-01-07 18:55:00 Test Item Value Reference Range Interpretation Comments CREATINE KINASE TOTAL (CHAPITOAKER) (test 11 U/L 29-200 L code = 380) RAD, CHEST, 1 VIEW, NON [id number] 08:40:00Reason for exam:->Shortness of BreathShould this be performed at the bedside?->YesFINAL REPORT TECHNIQUE: Frontal chest radiograph dated 01/07/2019. CLINICAL HI STORY: SOB COMPARISON STUDY: Chest radiographs dated 11/16/2017 [...] for patient's stated age. Signed: Mckenzie Ye Verified Date/Time: 01/07/201908:40:21 Reading Location: [facility] Radiology Reading Room CBC W/PLT COUNT & AUTO [id number] 12:52:00 Test Item Value Reference Range Interpretation Comments WHITE BLOOD CELL COUNT (BEAKER) 20.2 K/ L 3.5-10.5 H (test code = 775) RED BLOOD CELL COUNT (BEAKER) 2.32 M/ L 3.93-5.22 L (test code = 761) HEMOGLOBIN (BEAKER) (test code = 7.9 GM/DL 11.2-15.7 L 410) HEMATOCRIT (BEAKER) (test code = 24.5 % 34.1-44.9 L 411) MEAN CORPUSCULAR VOLUME (BEAKER) 105.6 fL 79.4-94.8 H (test code = 753) MEAN CORPUSCULAR HEMOGLOBIN 34.1 pg 25.6-32.2 H (BEAKER) (test code = 751) MEAN CORPUSCULAR HEMOGLOBIN CONC 32.2 GM/DL 32.2-35.5 (BEAKER) (test code = 752) RED CELL DISTRIBUTION WIDTH 22.3 % 11.7-14.4 H (BEAKER) (test code = 412) PLATELET COUNT (BEAKER) (test 219 K/CU MM 150-450 code = 756) MEAN PLATELET VOLUME (BEAKER) 11.6 fL 9.4-12.3 (test code = 754) NUCLEATED RED BLOOD CELLS 7 /100 WBC 0-0 H (BEAKER) (test code = 413) (CELLAVISION MANUAL DIFF)2019-01-06 12:52:00 Test Item Value Reference Range Interpretation Comments NEUTROPHILS - REL 57 % (CELLAVISION)(BEAKER) (test code = 2816) LYMPHOCYTES - REL 19 % (CELLAVISION)(BEAKER) (test code = 2817) MONOCYTES - REL 18 % (CELLAVISION)(BEAKER) (test code = 2818) EOSINOPHILS - REL 6 % (CELLAVISION)(BEAKER) (test code = 2819) NEUTROPHILS - ABS 11.51 K/ul 1.56-6.13 H (CELLAVISION)(BEAKER) (test code = 2830) LYMPHOCYTES - ABS 3.84 K/ul 1.18-3.74 H (CELLAVISION)(BEAKER) (test code = 2831) MONOCYTES - ABS 3.64 K/uL 0.24-0.36 H (CELLAVISION)(BEAKER) (test code = 2832) EOSINOPHILS - ABS 1.21 K/uL 0.04-0.36 H (CELLAVISION)(BEAKER) (test code = 2834) TOTAL COUNTED (BEAKER) (test code 100 = 1351) MANUAL NRBC PER 100 CELLS 9 /100 WBC 0-0 H (BEAKER) (test code = 1353) SMUDGE CELLS (BEAKER) (test code Present = 1371) GIANT PLATELETS (BEAKER) (test Present code = 313) POLYCHROMATOPHILLIC RBCS(BEAKER) 2+ moderate (test code = 478) ANISOCYTOSIS (BEAKER) (test code 2+ moderate = 961) MACROCYTES (BEAKER) (test code = 2+ moderate 964) SICKLE CELLS (BEAKER) (test code 1+ few = 767) ARTIFACT (CELLAVISION)(BEAKER) Present (test code = 3432) PLATELET CONCENTRATION Adequate (CELLAVISION)(BEAKER) (test code = 3438) Received comment: User comments: Slide comments:BASIC METABOLIC [id number] 07:32:00 Test Item Value Reference Range Interpretation Comments SODIUM (BEAKER) 140 meq/L 136-145 (test code = 381) POTASSIUM (BEAKER) 4.2 meq/L 3.5-5.1 (test code = 379) CHLORIDE (BEAKER) 96 meq/L 98-107 L (test code = 382) CO2 (BEAKER) (test 34 meq/L 22-29 H code = 355) BLOOD UREA NITROGEN 10 mg/dL 7-21 (BEAKER) (test code = 354) CREATININE (BEAKER) 0.58 mg/dL 0.57-1.25 (test code = 358) GLUCOSE RANDOM 95 mg/dL 70-105 (BEAKER) (test code = 652) CALCIUM (BEAKER) 9.6 mg/dL 8.4-10.2 (test code = 697) EGFR (BEAKER) (test 140 mL/min/1.73 ESTIM ATED GFR IS code = 1092) sq m NOT ACCURATE CREATININE CLEARANCE IN PREDICTING GLOMERULAR FILTRATION RATE . ESTIMATED GFR I S NOT APPLICABLE FOR DIALYSIS PATIEN TS. Specimen slightly ictericCBC W/PLT COUNT & AUTO [id number] 06:02:00 Test Item Value Reference Range Interpretation Comments WHITE BLOOD CELL COUNT (BEAKER) 20.2 K/ L 3.5-10.5 H (test code = 775) RED BLOOD CELL COUNT (BEAKER) 2.24 M/ L 3.93-5.22 L (test code = 761) HEMOGLOBIN (BEAKER) (test code = 7.5 GM/DL 11.2-15.7 L 410) HEMATOCRIT (BEAKER) (test code = 23.3 % 34.1-44.9 L 411) MEAN CORPUSCULAR VOLUME (BEAKER) 104.0 fL 79.4-94.8 H (test code = 753) MEAN CORPUSCULAR HEMOGLOBIN 33.5 pg 25.6-32.2 H (BEAKER) (test code = 751) MEAN CORPUSCULAR HEMOGLOBIN CONC 32.2 GM/DL 32.2-35.5 (BEAKER) (test code = 752) RED CELL DISTRIBUTION WIDTH 23.4 % 11.7-14.4 H (BEAKER) (test code = 412) PLATELET COUNT (BEAKER) (test 215 K/CU MM 150-450 code = 756) MEAN PLATELET VOLUME (BEAKER) 11.2 fL 9.4-12.3 (test code = 754) NUCLEATED RED BLOOD CELLS 9 /100 WBC 0-0 H (BEAKER) (test code = 413) NEUTROPHILS RELATIVE PERCENT 54 % (BEAKER) (test code = 429) LYMPHOCYTES RELATIVE PERCENT 22 % (BEAKER) (test code = 430) MONOCYTES RELATIVE PERCENT 18 % (BEAKER) (test code = 431) EOSINOPHILS RELATIVE PERCENT 5 % (BEAKER) (test code = 432) BASOPHILS RELATIVE PERCENT 0 % (BEAKER) (test code = 437) NEUTROPHILS ABSOLUTE COUNT 10.96 K/ L 1.56-6.13 H (BEAKER) (test code = 670) LYMPHOCYTES ABSOLUTE COUNT 4.39 K/ L 1.18-3.74 H (BEAKER) (test code = 414) MONOCYTES ABSOLUTE COUNT (BEAKER) 3.61 K/ L 0.24-0.36 H (test code = 415) EOSINOPHILS ABSOLUTE COUNT 1.08 K/ L 0.04-0.36 H (BEAKER) (test code = 416) BASOPHILS ABSOLUTE COUNT (BEAKER) 0.07 K/ L 0.01-0.08 (test code = 417) IMMATURE GRANULOCYTES-RELATIVE 1 % 0-1 PERCENT (BEAKER) (test code = 2801) BASIC METABOLIC [id number] 06:02:00 Test Item Value Reference Range Interpretation Comments SODIUM (BEAKER) 139 meq/L 136-145 (test code = 381) POTASSIUM (BEAKER) 4.3 meq/L 3.5-5.1 (test code = 379) CHLORIDE (BEAKER) 98 meq/L 98-107 (test code = 382) CO2 (BEAKER) (test 36 meq/L 22-29 H code = 355) BLOOD UREA NITROGEN 9 mg/dL 7-21 (BEAKER) (test code = 354) CREATININE (BEAKER) 0.56 mg/dL 0.57-1.25 L (test code = 358) GLUCOSE RANDOM 100 mg/dL 70-105 (BEAKER) (test code = 652) CALCIUM (BEAKER) 9.5 mg/dL 8.4-10.2 (test code = 697) EGFR (BEAKER) (test 146 mL/min/1.73 ESTIM ATED GFR IS code = 1092) sq m NOT ACCURATE CREATININE CLEARANCE IN PREDICTING GLOMERULAR FILTRATION RATE . ESTIMATED GFR I S NOT APPLICABLE FOR DIALYSIS PATIEN TS. Specimen slightly ictericBASIC METABOLIC [id number] 09:02:00 Test Item Value Reference Range Interpretation Comments SODIUM (BEAKER) 141 meq/L 136-145 (test code = 381) POTASSIUM (BEAKER) 4.4 meq/L 3.5-5.1 (test code = 379) CHLORIDE (BEAKER) 101 meq/L 98-107 (test code = 382) CO2 (BEAKER) (test 32 meq/L 22-29 H code = 355) BLOOD UREA NITROGEN 9 mg/dL 7-21 (BEAKER) (test code = 354) CREATININE (BEAKER) 0.54 mg/dL 0.57-1.25 L (test code = 358) GLUCOSE RANDOM 102 mg/dL 70-105 (BEAKER) (test code = 652) CALCIUM (BEAKER) 9.6 mg/dL 8.4-10.2 (test code = 697) EGFR (BEAKER) (test 152 mL/min/1.73 ESTIM ATED GFR IS code = 1092) sq m NOT ACCURATE CREATININE CLEARANCE IN PREDICTING GLOMERULAR FILTRATION RATE . ESTIMATED GFR I S NOT APPLICABLE FOR DIALYSIS PATIEN TS. Specimen slightly ictericCBC W/PLT COUNT & AUTO [id number] 07:17:00 Test Item Value Reference Range Interpretation Comments WHITE BLOOD CELL COUNT (BEAKER) 19.8 K/ L 3.5-10.5 H (test code = 775) RED BLOOD CELL COUNT (BEAKER) 2.35 M/ L 3.93-5.22 L (test code = 761) HEMOGLOBIN (BEAKER) (test code = 7.7 GM/DL 11.2-15.7 L 410) HEMATOCRIT (BEAKER) (test code = 24.3 % 34.1-44.9 L 411) MEAN CORPUSCULAR VOLUME (BEAKER) 103.4 fL 79.4-94.8 H (test code = 753) MEAN CORPUSCULAR HEMOGLOBIN 32.8 pg 25.6-32.2 H (BEAKER) (test code = 751) MEAN CORPUSCULAR HEMOGLOBIN CONC 31.7 GM/DL 32.2-35.5 L (BEAKER) (test code = 752) RED CELL DISTRIBUTION WIDTH 24.4 % 11.7-14.4 H (BEAKER) (test code = 412) PLATELET COUNT (BEAKER) (test 220 K/CU MM 150-450 code = 756) MEAN PLATELET VOLUME (BEAKER) 10.9 fL 9.4-12.3 (test code = 754) NUCLEATED RED BLOOD CELLS 14 /100 WBC 0-0 H (BEAKER) (test code = 413) (CELLAVISION MANUAL DIFF)2019-01-04 07:17:00 Test Item Value Reference Range Interpretation Comments NEUTROPHILS - REL 62 % (CELLAVISION)(BEAKER) (test code = 2816) LYMPHOCYTES - REL 25 % (CELLAVISION)(BEAKER) (test code = 2817) MONOCYTES - REL 8 % (CELLAVISION)(BEAKER) (test code = 2818) EOSINOPHILS - REL 3 % (CELLAVISION)(BEAKER) (test code = 2819) BANDS - REL (CELLAVISION)(BEAKER) 1 % 0-10 (test code = 2826) NEUTROPHILS - ABS 12.28 K/ul 1.56-6.13 H (CELLAVISION)(BEAKER) (test code = 2830) LYMPHOCYTES - ABS 4.95 K/ul 1.18-3.74 H (CELLAVISION)(BEAKER) (test code = 2831) MONOCYTES - ABS 1.58 K/uL 0.24-0.36 H (CELLAVISION)(BEAKER) (test code = 2832) EOSINOPHILS - ABS 0.59 K/uL 0.04-0.36 H (CELLAVISION)(BEAKER) (test code = 2834) BANDS - ABS (CELLAVISION)(BEAKER) 0.20 K/uL 0.00-0.80 (test code = 2840) TOTAL COUNTED (BEAKER) (test code 100 = 1351) MANUAL NRBC PER 100 CELLS 20 /100 WBC 0-0 H (BEAKER) (test code = 1353) RBC MORPHOLOGY (BEAKER) (test Normal code = 762) WBC MORPHOLOGY (BEAKER) (test Normal code = 487) PLT MORPHOLOGY (BEAKER) (test Normal code = 486) GIANT PLATELETS (BEAKER) (test Present code = 313) LARGE PLT(BEAKER) (test code = Present 2156) POLYCHROMATOPHILLIC RBCS(BEAKER) 2+ moderate (test code = 478) HYPOCHROMIA (BEAKER) (test code = 2+ moderate 963) ANISOCYTOSIS (BEAKER) (test code 2+ moderate = 961) MICROCYTES (BEAKER) (test code = 1+ few 965) MACROCYTES (BEAKER) (test code = 2+ moderate 964) POIKILOCYTES (BEAKER) (test code 3+ many = 966) TARGET CELLS (BEAKER) (test code 2+ moderate = 480) SCHISTOCYTES (BEAKER) (test code 1+ few = 765) SICKLE CELLS (BEAKER) (test code 3+ many = 767) ELLIPTOCYTES (BEAKER) (test code 1+ few = 962) OVALOCYTES (BEAKER) (test code = 1+ few 477) BASOPHILIC STIPPLING (BEAKER) Present (test code = 473) ARTIFACT (CELLAVISION)(BEAKER) Present (test code = 3432) PAPPENHEIMER 1+ few (CELLAVISION)(BEAKER) (test code = 3435) PLATELET CONCENTRATION Adequate (CELLAVISION)(BEAKER) (test code = 3438) Received comment: User comments: Slide comments:CBC WITH PLATELET COUNT + MANUAL [id number] 10:36:00 Test Item Value Reference Range Interpretation Comments WHITE BLOOD CELL COUNT 22.9 K/ L 3.5-10.5 H (BEAKER) (test code = 775) RED BLOOD CELL COUNT 2.28 M/ L 3.93-5.22 L (BEAKER) (test code = 761) HEMOGLOBIN (BEAKER) 7.7 GM/DL 11.2-15.7 L (test code = 410) HEMATOCRIT (BEAKER) 23.2 % 34.1-44.9 L (test code = 411) MEAN CORPUSCULAR 101.8 fL 79.4-94.8 H Discordant results VOLUME (BEAKER) (test compar ed to previous code = 753) result; clinica l correlation required. MEAN CORPUSCULAR 33.8 pg 25.6-32.2 H HEMOGLOBIN (BEAKER) (test code = 751) MEAN CORPUSCULAR 33.2 GM/DL 32.2-35.5 HEMOGLOBIN CONC (BEAKER) (test code = 752) RED CELL DISTRIBUTION 23.3 % 11.7-14.4 H WIDTH (BEAKER) (test code = 412) PLATELET COUNT 251 K/CU MM 150-450 (BEAKER) (test code = 756) MEAN PLATELET VOLUME 10.7 fL 9.4-12.3 (BEAKER) (test code = 754) NUCLEATED RED BLOOD 52 /100 WBC 0-0 H CELLS (BEAKER) (test code = 413) (CELLAVISION MANUAL DIFF)2019-01-01 10:36:00 Test Item Value Reference Range Interpretation Comments NEUTROPHILS - REL 56 % (CELLAVISION)(BEAKER) (test code = 2816) LYMPHOCYTES - REL 30 % (CELLAVISION)(BEAKER) (test code = 2817) MONOCYTES - REL 10 % (CELLAVISION)(BEAKER) (test code = 2818) EOSINOPHILS - REL 3 % (CELLAVISION)(BEAKER) (test code = 2819) ATYPICAL LYMPHOCYTES - REL 2 % 0-0 H (CELLAVISION)(BEAKER) (test code = 2829) NEUTROPHILS - ABS 12.82 K/ul 1.56-6.13 H (CELLAVISION)(BEAKER) (test code = 2830) LYMPHOCYTES - ABS 6.87 K/ul 1.18-3.74 H (CELLAVISION)(BEAKER) (test code = 2831) MONOCYTES - ABS 2.29 K/uL 0.24-0.36 H (CELLAVISION)(BEAKER) (test code = 2832) EOSINOPHILS - ABS 0.69 K/uL 0.04-0.36 H (CELLAVISION)(BEAKER) (test code = 2834) ATYPICAL LYMPHOCYTES - ABS 0.46 K/uL 0.00-0.00 H (CELLAVISION)(BEAKER) (test code = 2858) TOTAL COUNTED (BEAKER) (test code 100 = 1351) MANUAL NRBC PER 100 CELLS 61 /100 WBC 0-0 H (BEAKER) (test code = 1353) WBC MORPHOLOGY (BEAKER) (test Normal code = 487) PLT MORPHOLOGY (BEAKER) (test Normal code = 486) POLYCHROMATOPHILLIC RBCS(BEAKER) 3+ many (test code = 478) HYPOCHROMIA (BEAKER) (test code = 2+ moderate 963) TARGET CELLS (BEAKER) (test code 2+ moderate = 480) SICKLE CELLS (BEAKER) (test code 2+ moderate = 767) MATTHEWS-JOLLY BODIES (BEAKER) 1+ few (test code = 475) ARTIFACT (CELLAVISION)(BEAKER) Present (test code = 3432) PLATELET CONCENTRATION Adequate (CELLAVISION)(BEAKER) (test code = 3438) Received comment: User comments: Slide comments:BASIC METABOLIC [id number] 08:47:00 Test Item Value Reference Range Interpretation Comments SODIUM (BEAKER) 140 meq/L 136-145 (test code = 381) POTASSIUM (BEAKER) 4.2 meq/L 3.5-5.1 (test code = 379) CHLORIDE (BEAKER) 109 meq/L 98-107 H (test code = 382) CO2 (BEAKER) (test 27 meq/L 22-29 code = 355) BLOOD UREA NITROGEN 10 mg/dL 7-21 (BEAKER) (test code = 354) CREATININE (BEAKER) 0.65 mg/dL 0.57-1.25 (test code = 358) GLUCOSE RANDOM 87 mg/dL 70-105 (BEAKER) (test code = 652) CALCIUM (BEAKER) 8.9 mg/dL 8.4-10.2 (test code = 697) EGFR (BEAKER) (test 123 mL/min/1.73 ESTIM ATED GFR IS code = 1092) sq m NOT ACCURATE CREATININE CLEARANCE IN PREDICTING GLOMERULAR FILTRATION RATE . ESTIMATED GFR I S NOT APPLICABLE FOR DIALYSIS PATIEN TS. Specimen slightly ictericHEMOGLOBIN AND [id number] 12:05:00 Test Item Value Reference Range Interpretation Comments HEMOGLOBIN (BEAKER) (test code = 5.5 GM/DL 11.2-15.7 LL 410) HEMATOCRIT (BEAKER) (test code = 17.1 % 34.1-44.9 L 411) CBC W/PLT COUNT & AUTO [id number] 09:09:00 Test Item Value Reference Range Interpretation Comments WHITE BLOOD CELL COUNT (BEAKER) 32.6 K/ L 3.5-10.5 H (test code = 775) RED BLOOD CELL COUNT (BEAKER) 1.71 M/ L 3.93-5.22 L (test code = 761) HEMOGLOBIN (BEAKER) (test code = 5.9 GM/DL 11.2-15.7 LL 410) HEMATOCRIT (BEAKER) (test code = 18.5 % 34.1-44.9 L 411) MEAN CORPUSCULAR VOLUME (BEAKER) 108.2 fL 79.4-94.8 H (test code = 753) MEAN CORPUSCULAR HEMOGLOBIN 34.5 pg 25.6-32.2 H (BEAKER) (test code = 751) MEAN CORPUSCULAR HEMOGLOBIN CONC 31.9 GM/DL 32.2-35.5 L (BEAKER) (test code = 752) RED CELL DISTRIBUTION WIDTH 27.3 % 11.7-14.4 H (BEAKER) (test code = 412) PLATELET COUNT (BEAKER) (test 245 K/CU MM 150-450 code = 756) MEAN PLATELET VOLUME (BEAKER) 11.0 fL 9.4-12.3 (test code = 754) NUCLEATED RED BLOOD CELLS 18 /100 WBC 0-0 H (BEAKER) (test code = 413) (CELLAVISION MANUAL DIFF)2018-12-31 09:09:00 Test Item Value Reference Range Interpretation Comments NEUTROPHILS - REL 61 % (CELLAVISION)(BEAKER) (test code = 2816) LYMPHOCYTES - REL 30 % (CELLAVISION)(BEAKER) (test code = 2817) MONOCYTES - REL 9 % (CELLAVISION)(BEAKER) (test code = 2818) BANDS - REL (CELLAVISION)(BEAKER) 1 % 0-10 (test code = 2826) NEUTROPHILS - ABS 19.89 K/ul 1.56-6.13 H (CELLAVISION)(BEAKER) (test code = 2830) LYMPHOCYTES - ABS 9.78 K/ul 1.18-3.74 H (CELLAVISION)(BEAKER) (test code = 2831) MONOCYTES - ABS 2.93 K/uL 0.24-0.36 H (CELLAVISION)(BEAKER) (test code = 2832) BANDS - ABS (CELLAVISION)(BEAKER) 0.33 K/uL 0.00-0.80 (test code = 2840) TOTAL COUNTED (BEAKER) (test code 100 = 1351) MANUAL NRBC PER 100 CELLS 21 /100 WBC 0-0 H (BEAKER) (test code = 1353) WBC MORPHOLOGY (BEAKER) (test Normal code = 487) PLT MORPHOLOGY (BEAKER) (test Normal code = 486) POLYCHROMATOPHILLIC RBCS(BEAKER) 3+ many (test code = 478) HYPOCHROMIA (BEAKER) (test code = 2+ moderate 963) TARGET CELLS (BEAKER) (test code 2+ moderate = 480) SICKLE CELLS (BEAKER) (test code 2+ moderate = 767) MATTHEWS-JOLLY BODIES (BEAKER) 1+ few (test code = 475) ARTIFACT (CELLAVISION)(BEAKER) Present (test code = 3432) PLATELET CONCENTRATION Adequate (CELLAVISION)(BEAKER) (test code = 3438) Received comment: User comments: Slide comments:BASIC METABOLIC [id number] 06:17:00 Test Item Value Reference Range Interpretation Comments SODIUM (BEAKER) 140 meq/L 136-145 (test code = 381) POTASSIUM (BEAKER) 4.6 meq/L 3.5-5.1 (test code = 379) CHLORIDE (BEAKER) 112 meq/L 98-107 H (test code = 382) CO2 (BEAKER) (test 20 meq/L 22-29 L code = 355) BLOOD UREA NITROGEN 13 mg/dL 7-21 (BEAKER) (test code = 354) CREATININE (BEAKER) 0.76 mg/dL 0.57-1.25 (test code = 358) GLUCOSE RANDOM 97 mg/dL 70-105 (BEAKER) (test code = 652) CALCIUM (BEAKER) 9.3 mg/dL 8.4-10.2 (test code = 697) EGFR (BEAKER) (test 103 mL/min/1.73 ESTIM ATED GFR IS code = 1092) sq m NOT ACCURATE CREATININE CLEARANCE IN PREDICTING GLOMERULAR FILTRATION RATE . ESTIMATED GFR I S NOT APPLICABLE FOR DIALYSIS PATIEN TS. Specimen slightly ictericRETIC COUNT (AUTOMATED)2018-12-04 07:18:00 Test Item Value Reference Range Interpretation Comments RETIC COUNT (AUTOMATED) (test code = 13.5 % 0.3-2.3 H RETICA) COMPREHENSIVE METABOLIC [id number] 14:26:00 Test Item Value Reference Range Interpretation Comments SODIUM (test code = NA) 135 mEq/L 134-147 N POTASSIUM (test code = 4.4 mEq/L 3.4-5.0 N K) CHLORIDE (test code = 101 mEq/L 100-108 N CL) CARBON DIOXIDE (test 31 mEq/L 21-33 N code = CO2) ANION GAP (test code = 7 0-20 N GAP) GLUCOSE (test code = 112 mg/dL 70-110 H GLU) BLOOD UREA NITROGEN 13 mg/dL 7-18 N (test code = BUN) GLOMERULAR FILTRATION 134.7 105-110 H Units of measure = RATE (test code = GFR) ml/mi n/1.73 m2 CREATININE (test code = 0.6 mg/dL 0.6-1.3 N CREAT) TOTAL PROTEIN (test 9.4 g/dL 6.4-8.2 H code = PROT) ALBUMIN (test code = 3.20 g/dL 3.4-5.0 L ALB) CALCIUM (test code = 9.0 mg/dL 8.0-10.5 N CA) BILIRUBIN TOTAL (test 2.30 mg/dL 0.0-1.0 H code = BILT) SGOT/AST (test code = 153 IUnit/L 15-37 H AST) SGPT/ALT (test code = 73 IUnit/L 15-65 H ALT) ALKALINE PHOSPHATASE 169 IUnit/L 20-125 H TOTAL (test code = ALKP) CBC W/AUTO [id number] 14:15:00 Test Item Value Reference Range Interpretation Comments WHITE BLOOD CELL (test code = 12.58 x10 3/uL 4.5-11.0 H WBC) RED BLOOD CELL (test code = 2.80 x10 6/uL 3.54-5.02 L RBC) HEMOGLOBIN (test code = HGB) 9.0 g/dL 11.0-15.0 L HEMATOCRIT (test code = HCT) 27.6 % 33.0-45.0 L MEAN CELL VOLUME (test code = 98.6 fL 81.0-99.0 N MCV) MEAN CELL HGB (test code = 32.1 pg 27.0-33.0 N MCH) MEAN CELL HGB CONCETRATION 32.6 g/dL 33.0-37.0 L (test code = MCHC) RED CELL DISTRIBUTION WIDTH CV 21.8 % 11.5-14.5 H (test code = RDW) RED CELL DISTRIBUTION WIDTH SD 78.1 fL 37.0-54.0 H (test code = RDW-SD) PLATELET COUNT (test code = 207 x10 3/uL 150-400 N PLT) MEAN PLATELET VOLUME (test 11.3 fL 7.0-9.0 H code = MPV) MANUAL DIFF REQUIRED (test YES code = MDIFF) WBC [id number] 14:15:00 Test Item Value Reference Range Interpretation Comments SEGMENTED NEUTROPHILS 32 % 37-69 L (test code = SEG) LYMPHOCYTE (test code 41 % 23-55 N = LYMPH) MONOCYTE (test code = 17 % 0-10 H MON) EOSINOPHIL (test code 9 % 0.0-4.0 H = EOS) BASOPHIL (test code = 1 % 0.0-2.0 N BASO) NUCLEATED RED BLOOD 7 % CELL (test code = NRBC) POLYCHROMASIA (test 2+ code = POLC) HYPOCHROMIA (test SLIGHT code = HYPO) POIKILOCYTOSIS (test 2+ RARE ST OMATOCYTES code = POIK) SEEN BASOPHILIC STIPPLING FEW (test code = STP) ANISOCYTOSIS (test 2+ code = ANISO) MICROCYTOSIS (test FEW code = MICR) MACROCYTOSIS (test 2+ code = MACR) TARGET CELLS (test 2+ code = TGT) TEAR DROP CELLS (test FEW code = TEAR) OVALOCYTES (test code FEW = OVAL) SCHISTOCYTES (test FEW code = ALIVIA) SICKLE CELLS (test 2+ code = SICKL) MATTHEWS-JOLLY BODIES SEEN (test code = HJB) TOXIC GRANULATION SLIGHT (test code = TOX) VACUOLATED Present NEUTROPHILS (test code = VN) PLATELET ESTIMATE Adequate ADEQUATE (test code = PLTEST) THOUSAND PLATELET MORPHOLOGY LARGE PLATELETS LARGE PLTS AND (test code = GIANT PLTS SEEN PLTMORPH) RETIC COUNT (AUTOMATED)2018-12-03 14:15:00 Test Item Value Reference Range Interpretation Comments RETIC COUNT (AUTOMATED) (test code = 18.7 % 0.3-2.3 H RETICA) BASIC METABOLIC [id number] 07:41:00 Test Item Value Reference Range Interpretation Comments SODIUM (test code = NA) 135 mEq/L 134-147 N POTASSIUM (test code = 4.5 mEq/L 3.4-5.0 N K) CHLORIDE (test code = 100 mEq/L 100-108 N CL) CARBON DIOXIDE (test 31 mEq/L 21-33 N code = CO2) ANION GAP (test code = 9 0-20 N GAP) GLUCOSE (test code = 81 mg/dL 70-110 N GLU) BLOOD UREA NITROGEN 13 mg/dL 7-18 N (test code = BUN) GLOMERULAR FILTRATION 134.7 105-110 H Units of measure = RATE (test code = GFR) ml/mi n/1.73 m2 CREATININE (test code = 0.6 mg/dL 0.6-1.3 N CREAT) CALCIUM (test code = 8.8 mg/dL 8.0-10.5 N CA) CBC W/AUTO [id number] 06:18:00 Test Item Value Reference Range Interpretation Comments WHITE BLOOD CELL (test code = 12.58 x10 3/uL 4.5-11.0 H WBC) RED BLOOD CELL (test code = 2.80 x10 6/uL 3.54-5.02 L RBC) HEMOGLOBIN (test code = HGB) 9.0 g/dL 11.0-15.0 L HEMATOCRIT (test code = HCT) 27.6 % 33.0-45.0 L MEAN CELL VOLUME (test code = 98.6 fL 81.0-99.0 N MCV) MEAN CELL HGB (test code = 32.1 pg 27.0-33.0 N MCH) MEAN CELL HGB CONCETRATION 32.6 g/dL 33.0-37.0 L (test code = MCHC) RED CELL DISTRIBUTION WIDTH CV 21.8 % 11.5-14.5 H (test code = RDW) RED CELL DISTRIBUTION WIDTH SD 78.1 fL 37.0-54.0 H (test code = RDW-SD) PLATELET COUNT (test code = 207 x10 3/uL 150-400 N PLT) MEAN PLATELET VOLUME (test 11.3 fL 7.0-9.0 H code = MPV) LYMPHOCYTE % (test code = LY%) % 14.0-32.0 MANUAL DIFF REQUIRED (test code = MDIFF) RETIC COUNT (AUTOMATED)2018-12-03 06:18:00 Test Item Value Reference Range Interpretation Comments RETIC COUNT (AUTOMATED) (test code = % 0.3-2.3 RETICA) CBC W/AUTO [id number] 06:18:00 Test Item Value Reference Range Interpretation Comments WHITE BLOOD CELL (test code = 12.58 x10 3/uL 4.5-11.0 H WBC) RED BLOOD CELL (test code = 2.80 x10 6/uL 3.54-5.02 L RBC) HEMOGLOBIN (test code = HGB) 9.0 g/dL 11.0-15.0 L HEMATOCRIT (test code = HCT) 27.6 % 33.0-45.0 L MEAN CELL VOLUME (test code = 98.6 fL 81.0-99.0 N MCV) MEAN CELL HGB (test code = 32.1 pg 27.0-33.0 N MCH) MEAN CELL HGB CONCETRATION 32.6 g/dL 33.0-37.0 L (test code = MCHC) RED CELL DISTRIBUTION WIDTH CV 21.8 % 11.5-14.5 H (test code = RDW) RED CELL DISTRIBUTION WIDTH SD 78.1 fL 37.0-54.0 H (test code = RDW-SD) PLATELET COUNT (test code = 207 x10 3/uL 150-400 N PLT) MEAN PLATELET VOLUME (test 11.3 fL 7.0-9.0 H code = MPV) MANUAL DIFF REQUIRED (test YES code = MDIFF) WBC [id number] 06:18:00 Test Item Value Reference Range Interpretation Comments ANISOCYTOSIS (test code = ANISO) PLATELET ESTIMATE (test code = THOUSAND ADEQUATE PLTEST) RETIC COUNT (AUTOMATED)2018-12-03 06:18:00 Test Item Value Reference Range Interpretation Comments RETIC COUNT (AUTOMATED) (test code = 18.7 % 0.3-2.3 H RETICA) CBC W/AUTO [id number] 06:18:00 Test Item Value Reference Range Interpretation Comments WHITE BLOOD CELL (test code = 12.58 x10 3/uL 4.5-11.0 H WBC) RED BLOOD CELL (test code = 2.80 x10 6/uL 3.54-5.02 L RBC) HEMOGLOBIN (test code = HGB) 9.0 g/dL 11.0-15.0 L HEMATOCRIT (test code = HCT) 27.6 % 33.0-45.0 L MEAN CELL VOLUME (test code = 98.6 fL 81.0-99.0 N MCV) MEAN CELL HGB (test code = 32.1 pg 27.0-33.0 N MCH) MEAN CELL HGB CONCETRATION 32.6 g/dL 33.0-37.0 L (test code = MCHC) RED CELL DISTRIBUTION WIDTH CV 21.8 % 11.5-14.5 H (test code = RDW) RED CELL DISTRIBUTION WIDTH SD 78.1 fL 37.0-54.0 H (test code = RDW-SD) PLATELET COUNT (test code = 207 x10 3/uL 150-400 N PLT) MEAN PLATELET VOLUME (test 11.3 fL 7.0-9.0 H code = MPV) MANUAL DIFF REQUIRED (test YES code = MDIFF) WBC [id number] 06:18:00 Test Item Value Reference Range Interpretation Comments ANISOCYTOSIS (test code = ANISO) PLATELET ESTIMATE (test code = THOUSAND ADEQUATE PLTEST) RETIC COUNT (AUTOMATED)2018-12-03 06:18:00 Test Item Value Reference Range Interpretation Comments RETIC COUNT (AUTOMATED) (test code = 18.7 % 0.3-2.3 H RETICA) CBC W/AUTO [id number] 13:36:00 Test Item Value Reference Range Interpretation Comments WHITE BLOOD CELL (test code = 11.86 x10 3/uL 4.5-11.0 H WBC) RED BLOOD CELL (test code = 2.63 x10 6/uL 3.54-5.02 L RBC) HEMOGLOBIN (test code = HGB) 8.7 g/dL 11.0-15.0 L HEMATOCRIT (test code = HCT) 26.1 % 33.0-45.0 L MEAN CELL VOLUME (test code = 99.2 fL 81.0-99.0 H MCV) MEAN CELL HGB (test code = 33.1 pg 27.0-33.0 H MCH) MEAN CELL HGB CONCETRATION 33.3 g/dL 33.0-37.0 N (test code = MCHC) RED CELL DISTRIBUTION WIDTH CV 22.9 % 11.5-14.5 H (test code = RDW) RED CELL DISTRIBUTION WIDTH SD 81.7 fL 37.0-54.0 H (test code = RDW-SD) PLATELET COUNT (test code = 190 x10 3/uL 150-400 N PLT) MEAN PLATELET VOLUME (test 11.0 fL 7.0-9.0 H code = MPV) MANUAL DIFF REQUIRED (test YES code = MDIFF) WBC [id number] 13:36:00 Test Item Value Reference Range Interpretation Comments SEGMENTED NEUTROPHILS (test 56.6 % 37-69 N code = SEG) LYMPHOCYTE (test code = 27.4 % 23-55 N LYMPH) REACTIVE LYMPH (test code = 2.8 % RELYMPH) MONOCYTE (test code = MON) 8.5 % 0-10 N EOSINOPHIL (test code = 4.7 % 0.0-4.0 H EOS) NUCLEATED RED BLOOD CELL 26.4 % (test code = NRBC) POIKILOCYTOSIS (test code = 1+ POIK) ANISOCYTOSIS (test code = 2+ ANISO) MICROCYTOSIS (test code = 1+ MICR) MACROCYTOSIS (test code = 1+ MACR) SPHEROCYTES (test code = 1+ SPH) OVALOCYTES (test code = 0 OVAL) PLATELET ESTIMATE (test Adequate THOUSAND ADEQUATE code = PLTEST) PLATELET MORPHOLOGY (test NORMAL code = PLTMORPH) RETIC COUNT (AUTOMATED)2018-12-02 13:36:00 Test Item Value Reference Range Interpretation Comments RETIC COUNT (AUTOMATED) (test code = 21.8 % 0.3-2.3 H RETICA) - NM BONE 3 [id number] 13:05:00 FAX: Wesly PersaudShankar Kaylee [phone] [place]: St: ADM FAX: Yoly Falcno MD [phone] Name: RODRIGO OSWALD [facility] : 1980 Age/S: 38/F [address] [place] [address] Unit #: [id number] Loc: [address] [address] Phys: Yoly Kang MD Acct: [id number] Dis Date: Status: ADM IN PHONE #: [phone] Exam Date: 12/02/2018 1059 FAX #: [phone] Reason: OM RT FOOT EXAMS: CPT CODE: [id number] IN BONE 3 PHASE 63401 TRIPLE PHASEBONE SCAN: HISTORY: Right foot osteomyelitis. [...] Signed by Wade Cardona on 12/02/2018 at 1305 Reported and signed by: Jones Cardona M.D. CC: Shankar Persaud MD; Yoly Kang MD Technologist: BALAJI Priest (N)(CT);... Trnscrd Date/Time/By: 12/02/2018 (0512) : By: [facility].VGE/[facility].VGE Orig Print D/T: S: 12/02/2018 (7954) PAGE 1 Signed ReportCBC W/AUTO [id number] 11:57:00 Test Item Value Reference Range Interpretation Comments WHITE BLOOD CELL (test code = 11.86 x10 3/uL 4.5-11.0 H WBC) RED BLOOD CELL (test code = 2.63 x10 6/uL 3.54-5.02 L RBC) HEMOGLOBIN (test code = HGB) 8.7 g/dL 11.0-15.0 L HEMATOCRIT (test code = HCT) 26.1 % 33.0-45.0 L MEAN CELL VOLUME (test code = 99.2 fL 81.0-99.0 H MCV) MEAN CELL HGB (test code = 33.1 pg 27.0-33.0 H MCH) MEAN CELL HGB CONCETRATION 33.3 g/dL 33.0-37.0 N (test code = MCHC) RED CELL DISTRIBUTION WIDTH CV 22.9 % 11.5-14.5 H (test code = RDW) RED CELL DISTRIBUTION WIDTH SD 81.7 fL 37.0-54.0 H (test code = RDW-SD) PLATELET COUNT (test code = 190 x10 3/uL 150-400 N PLT) MEAN PLATELET VOLUME (test 11.0 fL 7.0-9.0 H code = MPV) MANUAL DIFF REQUIRED (test YES code = MDIFF) WBC [id number] 11:57:00 Test Item Value Reference Range Interpretation Comments SEGMENTED NEUTROPHILS (test 56.6 % 37-69 N code = SEG) LYMPHOCYTE (test code = 27.4 % 23-55 N LYMPH) REACTIVE LYMPH (test code = 2.8 % RELYMPH) MONOCYTE (test code = MON) 8.5 % 0-10 N EOSINOPHIL (test code = 4.7 % 0.0-4.0 H EOS) NUCLEATED RED BLOOD CELL 26.4 % (test code = NRBC) POIKILOCYTOSIS (test code = 1+ POIK) ANISOCYTOSIS (test code = 2+ ANISO) MICROCYTOSIS (test code = 1+ MICR) MACROCYTOSIS (test code = 1+ MACR) SPHEROCYTES (test code = 1+ SPH) OVALOCYTES (test code = 0 OVAL) PLATELET ESTIMATE (test Adequate THOUSAND ADEQUATE code = PLTEST) PLATELET MORPHOLOGY (test NORMAL code = PLTMORPH) RETIC COUNT (AUTOMATED)2018-12-02 11:57:00 Test Item Value Reference Range Interpretation Comments RETIC COUNT (AUTOMATED) (test code = % 0.3-2.3 RETICA) CBC W/AUTO [id number] 11:52:00 Test Item Value Reference Range Interpretation Comments WHITE BLOOD CELL (test code = 11.86 x10 3/uL 4.5-11.0 H WBC) RED BLOOD CELL (test code = 2.63 x10 6/uL 3.54-5.02 L RBC) HEMOGLOBIN (test code = HGB) 8.7 g/dL 11.0-15.0 L HEMATOCRIT (test code = HCT) 26.1 % 33.0-45.0 L MEAN CELL VOLUME (test code = 99.2 fL 81.0-99.0 H MCV) MEAN CELL HGB (test code = 33.1 pg 27.0-33.0 H MCH) MEAN CELL HGB CONCETRATION 33.3 g/dL 33.0-37.0 N (test code = MCHC) RED CELL DISTRIBUTION WIDTH CV 22.9 % 11.5-14.5 H (test code = RDW) RED CELL DISTRIBUTION WIDTH SD 81.7 fL 37.0-54.0 H (test code = RDW-SD) PLATELET COUNT (test code = 190 x10 3/uL 150-400 N PLT) MEAN PLATELET VOLUME (test 11.0 fL 7.0-9.0 H code = MPV) MANUAL DIFF REQUIRED (test YES code = MDIFF) WBC [id number] 11:52:00 Test Item Value Reference Range Interpretation Comments ANISOCYTOSIS (test code = ANISO) PLATELET ESTIMATE (test code = THOUSAND ADEQUATE PLTEST) RETIC COUNT (AUTOMATED)2018-12-02 11:52:00 Test Item Value Reference Range Interpretation Comments RETIC COUNT (AUTOMATED) (test code = % 0.3-2.3 RETICA) CBC W/AUTO [id number] 11:52:00 Test Item Value Reference Range Interpretation Comments WHITE BLOOD CELL (test code = 11.86 x10 3/uL 4.5-11.0 H WBC) RED BLOOD CELL (test code = 2.63 x10 6/uL 3.54-5.02 L RBC) HEMOGLOBIN (test code = HGB) 8.7 g/dL 11.0-15.0 L HEMATOCRIT (test code = HCT) 26.1 % 33.0-45.0 L MEAN CELL VOLUME (test code = 99.2 fL 81.0-99.0 H MCV) MEAN CELL HGB (test code = 33.1 pg 27.0-33.0 H MCH) MEAN CELL HGB CONCETRATION 33.3 g/dL 33.0-37.0 N (test code = MCHC) RED CELL DISTRIBUTION WIDTH CV 22.9 % 11.5-14.5 H (test code = RDW) RED CELL DISTRIBUTION WIDTH SD 81.7 fL 37.0-54.0 H (test code = RDW-SD) PLATELET COUNT (test code = 190 x10 3/uL 150-400 N PLT) MEAN PLATELET VOLUME (test 11.0 fL 7.0-9.0 H code = MPV) MANUAL DIFF REQUIRED (test YES code = MDIFF) WBC [id number] 11:52:00 Test Item Value Reference Range Interpretation Comments ANISOCYTOSIS (test code = ANISO) PLATELET ESTIMATE (test code = THOUSAND ADEQUATE PLTEST) RETIC COUNT (AUTOMATED)2018-12-02 11:52:00 Test Item Value Reference Range Interpretation Comments RETIC COUNT (AUTOMATED) (test code = % 0.3-2.3 RETICA) BASIC METABOLIC [id number] 08:17:00 Test Item Value Reference Range Interpretation Comments SODIUM (test code = NA) 145 mEq/L 134-147 N POTASSIUM (test code = 4.6 mEq/L 3.4-5.0 N K) CHLORIDE (test code = 101 mEq/L 100-108 N CL) CARBON DIOXIDE (test 29 mEq/L 21-33 N code = CO2) ANION GAP (test code = 20 0-20 N GAP) GLUCOSE (test code = 82 mg/dL 70-110 N GLU) BLOOD UREA NITROGEN 11 mg/dL 7-18 N (test code = BUN) GLOMERULAR FILTRATION 112.7 105-110 H Units of measure = RATE (test code = GFR) ml/mi n/1.73 m2 CREATININE (test code = 0.7 mg/dL 0.6-1.3 CREAT) CALCIUM (test code = 8.9 mg/dL 8.0-10.5 N CA) CBC W/AUTO [id number] 07:16:00 Test Item Value Reference Range Interpretation Comments WHITE BLOOD CELL (test code = 11.86 x10 3/uL 4.5-11.0 H WBC) RED BLOOD CELL (test code = 2.63 x10 6/uL 3.54-5.02 L RBC) HEMOGLOBIN (test code = HGB) 8.7 g/dL 11.0-15.0 L HEMATOCRIT (test code = HCT) 26.1 % 33.0-45.0 L MEAN CELL VOLUME (test code = 99.2 fL 81.0-99.0 H MCV) MEAN CELL HGB (test code = 33.1 pg 27.0-33.0 H MCH) MEAN CELL HGB CONCETRATION 33.3 g/dL 33.0-37.0 N (test code = MCHC) RED CELL DISTRIBUTION WIDTH CV 22.9 % 11.5-14.5 H (test code = RDW) RED CELL DISTRIBUTION WIDTH SD 81.7 fL 37.0-54.0 H (test code = RDW-SD) PLATELET COUNT (test code = 190 x10 3/uL 150-400 N PLT) MEAN PLATELET VOLUME (test 11.0 fL 7.0-9.0 H code = MPV) LYMPHOCYTE % (test code = LY%) % 14.0-32.0 MANUAL DIFF REQUIRED (test code = MDIFF) RETIC COUNT (AUTOMATED)2018-12-02 07:16:00 Test Item Value Reference Range Interpretation Comments RETIC COUNT (AUTOMATED) (test code = % 0.3-2.3 RETICA) CBC W/AUTO [id number] 09:49:00 Test Item Value Reference Range Interpretation Comments WHITE BLOOD CELL (test code = 13.22 x10 3/uL 4.5-11.0 H WBC) RED BLOOD CELL (test code = 2.52 x10 6/uL 3.54-5.02 L RBC) HEMOGLOBIN (test code = HGB) 8.2 g/dL 11.0-15.0 L HEMATOCRIT (test code = HCT) 25.2 % 33.0-45.0 L MEAN CELL VOLUME (test code = 100.0 fL 81.0-99.0 H MCV) MEAN CELL HGB (test code = 32.5 pg 27.0-33.0 N MCH) MEAN CELL HGB CONCETRATION 32.5 g/dL 33.0-37.0 L (test code = MCHC) RED CELL DISTRIBUTION WIDTH CV 24.8 % 11.5-14.5 H (test code = RDW) RED CELL DISTRIBUTION WIDTH SD 86.5 fL 37.0-54.0 H (test code = RDW-SD) PLATELET COUNT (test code = 188 x10 3/uL 150-400 N PLT) MEAN PLATELET VOLUME (test 11.2 fL 7.0-9.0 H code = MPV) MANUAL DIFF REQUIRED (test YES code = MDIFF) WBC [id number] 09:49:00 Test Item Value Reference Range Interpretation Comments SEGMENTED NEUTROPHILS 48.1 % 37-69 N (test code = SEG) LYMPHOCYTE (test code 28.7 % 23-55 N = LYMPH) REACTIVE LYMPH (test 1.8 % code = RELYMPH) MONOCYTE (test code = 16.7 % 0-10 H MON) EOSINOPHIL (test code 2.8 % 0.0-4.0 N = EOS) METAMYELOCYTE (test 1.9 % 0.0-0.0 H code = META) NUCLEATED RED BLOOD 39.8 % CELL (test code = NRBC) POLYCHROMASIA (test 2+ code = POLC) HYPOCHROMIA (test code 1+ = HYPO) POIKILOCYTOSIS (test 2+ code = POIK) BASOPHILIC STIPPLING FEW (test code = STP) ANISOCYTOSIS (test 3+ code = ANISO) MICROCYTOSIS (test FEW code = MICR) MACROCYTOSIS (test 2+ code = MACR) TARGET CELLS (test 2+ code = TGT) TEAR DROP CELLS (test 1+ code = TEAR) ELLIPTOCYTES (test 1+ code = ELL) SCHISTOCYTES (test 1+ code = ALIVIA) STOMATOCYTES (test FEW code = STO) SICKLE CELLS (test 2+ code = SICKL) MATTHEWS-JOLLY BODIES FEW (test code = HJB) TOXIC GRANULATION 1+ (test code = TOX) PLATELET ESTIMATE 180-225 THOUSAND ADEQUATE (test code = PLTEST) PLATELET MORPHOLOGY LARGE PLATELETS LARGE PLTS AND (test code = PLTMORPH) FEW G IANT PLTS SEEN PLT AGGREGATES: SLIGHT CBC W/AUTO [id number] 09:36:00 Test Item Value Reference Range Interpretation Comments WHITE BLOOD CELL (test code = 13.22 x10 3/uL 4.5-11.0 H WBC) RED BLOOD CELL (test code = 2.52 x10 6/uL 3.54-5.02 L RBC) HEMOGLOBIN (test code = HGB) 8.2 g/dL 11.0-15.0 L HEMATOCRIT (test code = HCT) 25.2 % 33.0-45.0 L MEAN CELL VOLUME (test code = 100.0 fL 81.0-99.0 H MCV) MEAN CELL HGB (test code = 32.5 pg 27.0-33.0 N MCH) MEAN CELL HGB CONCETRATION 32.5 g/dL 33.0-37.0 L (test code = MCHC) RED CELL DISTRIBUTION WIDTH CV 24.8 % 11.5-14.5 H (test code = RDW) RED CELL DISTRIBUTION WIDTH SD 86.5 fL 37.0-54.0 H (test code = RDW-SD) PLATELET COUNT (test code = 188 x10 3/uL 150-400 N PLT) MEAN PLATELET VOLUME (test 11.2 fL 7.0-9.0 H code = MPV) MANUAL DIFF REQUIRED (test YES code = MDIFF) WBC [id number] 09:36:00 Test Item Value Reference Range Interpretation Comments ANISOCYTOSIS (test code = ANISO) PLATELET ESTIMATE (test code = THOUSAND ADEQUATE PLTEST) CBC W/AUTO [id number] 09:36:00 Test Item Value Reference Range Interpretation Comments WHITE BLOOD CELL (test code = 13.22 x10 3/uL 4.5-11.0 H WBC) RED BLOOD CELL (test code = 2.52 x10 6/uL 3.54-5.02 L RBC) HEMOGLOBIN (test code = HGB) 8.2 g/dL 11.0-15.0 L HEMATOCRIT (test code = HCT) 25.2 % 33.0-45.0 L MEAN CELL VOLUME (test code = 100.0 fL 81.0-99.0 H MCV) MEAN CELL HGB (test code = 32.5 pg 27.0-33.0 N MCH) MEAN CELL HGB CONCETRATION 32.5 g/dL 33.0-37.0 L (test code = MCHC) RED CELL DISTRIBUTION WIDTH CV 24.8 % 11.5-14.5 H (test code = RDW) RED CELL DISTRIBUTION WIDTH SD 86.5 fL 37.0-54.0 H (test code = RDW-SD) PLATELET COUNT (test code = 188 x10 3/uL 150-400 N PLT) MEAN PLATELET VOLUME (test 11.2 fL 7.0-9.0 H code = MPV) MANUAL DIFF REQUIRED (test YES code = MDIFF) WBC [id number] 09:36:00 Test Item Value Reference Range Interpretation Comments ANISOCYTOSIS (test code = ANISO) PLATELET ESTIMATE (test code = THOUSAND ADEQUATE PLTEST) RETIC COUNT (AUTOMATED)2018-12-01 08:02:00 Test Item Value Reference Range Interpretation Comments RETIC COUNT (AUTOMATED) (test code = 24.7 % 0.3-2.3 H RETICA) CBC W/AUTO [id number] 07:55:00 Test Item Value Reference Range Interpretation Comments WHITE BLOOD CELL (test code = 13.22 x10 3/uL 4.5-11.0 H WBC) RED BLOOD CELL (test code = 2.52 x10 6/uL 3.54-5.02 L RBC) HEMOGLOBIN (test code = HGB) 8.2 g/dL 11.0-15.0 L HEMATOCRIT (test code = HCT) 25.2 % 33.0-45.0 L MEAN CELL VOLUME (test code = 100.0 fL 81.0-99.0 H MCV) MEAN CELL HGB (test code = 32.5 pg 27.0-33.0 N MCH) MEAN CELL HGB CONCETRATION 32.5 g/dL 33.0-37.0 L (test code = MCHC) RED CELL DISTRIBUTION WIDTH CV 24.8 % 11.5-14.5 H (test code = RDW) RED CELL DISTRIBUTION WIDTH SD 86.5 fL 37.0-54.0 H (test code = RDW-SD) PLATELET COUNT (test code = 188 x10 3/uL 150-400 N PLT) MEAN PLATELET VOLUME (test 11.2 fL 7.0-9.0 H code = MPV) LYMPHOCYTE % (test code = LY%) % 14.0-32.0 MANUAL DIFF REQUIRED (test code = MDIFF) BASIC METABOLIC [id number] 07:31:00 Test Item Value Reference Range Interpretation Comments SODIUM (test code = NA) 139 mEq/L 134-147 N POTASSIUM (test code = 4.4 mEq/L 3.4-5.0 N K) CHLORIDE (test code = 106 mEq/L 100-108 N CL) CARBON DIOXIDE (test 28 mEq/L 21-33 N code = CO2) ANION GAP (test code = 9 0-20 N GAP) GLUCOSE (test code = 81 mg/dL 70-110 N GLU) BLOOD UREA NITROGEN 10 mg/dL 7-18 N (test code = BUN) GLOMERULAR FILTRATION 166.2 105-110 H Units of measure = RATE (test code = GFR) ml/mi n/1.73 m2 CREATININE (test code = 0.5 mg/dL 0.6-1.3 L CREAT) CALCIUM (test code = 8.6 mg/dL 8.0-10.5 N CA) CBC W/AUTO [id number] 12:24:00 Test Item Value Reference Range Interpretation Comments WHITE BLOOD CELL (test code = 14.47 x10 3/uL 4.5-11.0 H WBC) RED BLOOD CELL (test code = 2.56 x10 6/uL 3.54-5.02 L RBC) HEMOGLOBIN (test code = HGB) 8.2 g/dL 11.0-15.0 L HEMATOCRIT (test code = HCT) 25.3 % 33.0-45.0 L MEAN CELL VOLUME (test code = 98.8 fL 81.0-99.0 MCV) MEAN CELL HGB (test code = 32.0 pg 27.0-33.0 N MCH) MEAN CELL HGB CONCETRATION 32.4 g/dL 33.0-37.0 L (test code = MCHC) RED CELL DISTRIBUTION WIDTH CV 25.1 % 11.5-14.5 H (test code = RDW) RED CELL DISTRIBUTION WIDTH SD 83.9 fL 37.0-54.0 H (test code = RDW-SD) PLATELET COUNT (test code = 208 x10 3/uL 150-400 N PLT) MEAN PLATELET VOLUME (test 11.0 fL 7.0-9.0 H code = MPV) MANUAL DIFF REQUIRED (test YES code = MDIFF) WBC [id number] 12:24:00 Test Item Value Reference Range Interpretation Comments SEGMENTED NEUTROPHILS 38 % 37-69 N (test code = SEG) LYMPHOCYTE (test code 35 % 23-55 N = LYMPH) MONOCYTE (test code = 19 % 0-10 H MON) EOSINOPHIL (test code 6 % 0.0-4.0 H = EOS) BASOPHIL (test code = 1 % 0.0-2.0 N BASO) METAMYELOCYTE (test 1.0 % 0.0-0.0 H code = META) NUCLEATED RED BLOOD 71 % CELL (test code = NRBC) POLYCHROMASIA (test 2+ code = POLC) HYPOCHROMIA (test SLIGHT code = HYPO) POIKILOCYTOSIS (test 2+ 1+ SHINE PTOCYTES code = POIK) SEENFEW STOMATOCYTES SE EN BASOPHILIC STIPPLING FEW (test code = STP) ANISOCYTOSIS (test 2+ code = ANISO) MICROCYTOSIS (test 1+ code = MICR) MACROCYTOSIS (test 1+ code = MACR) TARGET CELLS (test 1+ code = TGT) TEAR DROP CELLS (test FEW code = TEAR) SCHISTOCYTES (test 1+ code = ALIVIA) SICKLE CELLS (test 2+ code = SICKL) MATTHEWS-JOLLY BODIES FEW (test code = HJB) PLATELET ESTIMATE Increased ADEQUATE A (test code = PLTEST) THOUSAND PLATELET MORPHOLOGY LARGE PLATELETS SOME LARGE PLTS (test code = AND RARE GIANT PLTMORPH) PLTS SEEN RETIC COUNT (AUTOMATED)2018-11-30 12:24:00 Test Item Value Reference Range Interpretation Comments RETIC COUNT (AUTOMATED) (test code = 23.3 % 0.3-2.3 H RETICA) CBC W/AUTO [id number] 12:23:00 Test Item Value Reference Range Interpretation Comments WHITE BLOOD CELL (test code = 14.47 x10 3/uL 4.5-11.0 H WBC) RED BLOOD CELL (test code = 2.56 x10 6/uL 3.54-5.02 L RBC) HEMOGLOBIN (test code = HGB) 8.2 g/dL 11.0-15.0 L HEMATOCRIT (test code = HCT) 25.3 % 33.0-45.0 L MEAN CELL VOLUME (test code = 98.8 fL 81.0-99.0 MCV) MEAN CELL HGB (test code = 32.0 pg 27.0-33.0 N MCH) MEAN CELL HGB CONCETRATION 32.4 g/dL 33.0-37.0 L (test code = MCHC) RED CELL DISTRIBUTION WIDTH CV 25.1 % 11.5-14.5 H (test code = RDW) RED CELL DISTRIBUTION WIDTH SD 83.9 fL 37.0-54.0 H (test code = RDW-SD) PLATELET COUNT (test code = 208 x10 3/uL 150-400 N PLT) MEAN PLATELET VOLUME (test 11.0 fL 7.0-9.0 H code = MPV) MANUAL DIFF REQUIRED (test YES code = MDIFF) WBC [id number] 12:23:00 Test Item Value Reference Range Interpretation Comments SEGMENTED NEUTROPHILS 38 % 37-69 N (test code = SEG) LYMPHOCYTE (test code 35 % 23-55 N = LYMPH) MONOCYTE (test code = 19 % 0-10 H MON) EOSINOPHIL (test code 6 % 0.0-4.0 H = EOS) BASOPHIL (test code = 1 % 0.0-2.0 N BASO) METAMYELOCYTE (test 1.0 % 0.0-0.0 H code = META) NUCLEATED RED BLOOD 71 % CELL (test code = NRBC) POLYCHROMASIA (test 2+ code = POLC) HYPOCHROMIA (test SLIGHT code = HYPO) POIKILOCYTOSIS (test 2+ 1+ SHINE PTOCYTES code = POIK) SEENFEW STOMATOCYTES SE EN BASOPHILIC STIPPLING FEW (test code = STP) ANISOCYTOSIS (test 2+ code = ANISO) MICROCYTOSIS (test 1+ code = MICR) MACROCYTOSIS (test 1+ code = MACR) TARGET CELLS (test 1+ code = TGT) TEAR DROP CELLS (test FEW code = TEAR) SCHISTOCYTES (test 1+ code = ALIVIA) SICKLE CELLS (test 2+ code = SICKL) MATTHEWS-JOLLY BODIES FEW (test code = HJB) PLATELET ESTIMATE Increased ADEQUATE A (test code = PLTEST) THOUSAND PLATELET MORPHOLOGY LARGE PLATELETS SOME LARGE PLTS (test code = AND RARE GIANT PLTMORPH) PLTS SEEN RETIC COUNT (AUTOMATED)2018-11-30 12:23:00 Test Item Value Reference Range Interpretation Comments RETIC COUNT (AUTOMATED) (test code = % 0.3-2.3 RETICA) BASIC METABOLIC [id number] 07:55:00 Test Item Value Reference Range Interpretation Comments SODIUM (test code = NA) 139 mEq/L 134-147 N POTASSIUM (test code = 4.2 mEq/L 3.4-5.0 N K) CHLORIDE (test code = 107 mEq/L 100-108 N CL) CARBON DIOXIDE (test 26 mEq/L 21-33 N code = CO2) ANION GAP (test code = 10 0-20 N GAP) GLUCOSE (test code = 81 mg/dL 70-110 GLU) BLOOD UREA NITROGEN 8 mg/dL 7-18 N (test code = BUN) GLOMERULAR FILTRATION 166.2 105-110 H Units of measure = RATE (test code = GFR) ml/mi n/1.73 m2 CREATININE (test code = 0.5 mg/dL 0.6-1.3 L CREAT) CALCIUM (test code = 8.6 mg/dL 8.0-10.5 N CA) CBC W/AUTO [id number] 07:44:00 Test Item Value Reference Range Interpretation Comments WHITE BLOOD CELL (test code = 14.47 x10 3/uL 4.5-11.0 H WBC) RED BLOOD CELL (test code = 2.56 x10 6/uL 3.54-5.02 L RBC) HEMOGLOBIN (test code = HGB) 8.2 g/dL 11.0-15.0 L HEMATOCRIT (test code = HCT) 25.3 % 33.0-45.0 L MEAN CELL VOLUME (test code = 98.8 fL 81.0-99.0 MCV) MEAN CELL HGB (test code = 32.0 pg 27.0-33.0 N MCH) MEAN CELL HGB CONCETRATION 32.4 g/dL 33.0-37.0 L (test code = MCHC) RED CELL DISTRIBUTION WIDTH CV 25.1 % 11.5-14.5 H (test code = RDW) RED CELL DISTRIBUTION WIDTH SD 83.9 fL 37.0-54.0 H (test code = RDW-SD) PLATELET COUNT (test code = 208 x10 3/uL 150-400 N PLT) MEAN PLATELET VOLUME (test 11.0 fL 7.0-9.0 H code = MPV) MANUAL DIFF REQUIRED (test YES code = MDIFF) WBC [id number] 07:44:00 Test Item Value Reference Range Interpretation Comments ANISOCYTOSIS (test code = ANISO) PLATELET ESTIMATE (test code = THOUSAND ADEQUATE PLTEST) RETIC COUNT (AUTOMATED)2018-11-30 07:44:00 Test Item Value Reference Range Interpretation Comments RETIC COUNT (AUTOMATED) (test code = % 0.3-2.3 RETICA) CBC W/AUTO [id number] 07:44:00 Test Item Value Reference Range Interpretation Comments WHITE BLOOD CELL (test code = 14.47 x10 3/uL 4.5-11.0 H WBC) RED BLOOD CELL (test code = 2.56 x10 6/uL 3.54-5.02 L RBC) HEMOGLOBIN (test code = HGB) 8.2 g/dL 11.0-15.0 L HEMATOCRIT (test code = HCT) 25.3 % 33.0-45.0 L MEAN CELL VOLUME (test code = 98.8 fL 81.0-99.0 MCV) MEAN CELL HGB (test code = 32.0 pg 27.0-33.0 N MCH) MEAN CELL HGB CONCETRATION 32.4 g/dL 33.0-37.0 L (test code = MCHC) RED CELL DISTRIBUTION WIDTH CV 25.1 % 11.5-14.5 H (test code = RDW) RED CELL DISTRIBUTION WIDTH SD 83.9 fL 37.0-54.0 H (test code = RDW-SD) PLATELET COUNT (test code = 208 x10 3/uL 150-400 N PLT) MEAN PLATELET VOLUME (test 11.0 fL 7.0-9.0 H code = MPV) MANUAL DIFF REQUIRED (test YES code = MDIFF) WBC [id number] 07:44:00 Test Item Value Reference Range Interpretation Comments ANISOCYTOSIS (test code = ANISO) PLATELET ESTIMATE (test code = THOUSAND ADEQUATE PLTEST) RETIC COUNT (AUTOMATED)2018-11-30 07:44:00 Test Item Value Reference Range Interpretation Comments RETIC COUNT (AUTOMATED) (test code = % 0.3-2.3 RETICA) HGB [id number] 22:58:00 Test Item Value Reference Range Interpretation Comments HEMOGLOBIN (test code = HGB) 8.1 g/dL 11.0-15.0 L HEMATOCRIT (test code = HCT) 25.1 % 33.0-45.0 L CBC W/AUTO [id number] 11:20:00 Test Item Value Reference Range Interpretation Comments WHITE BLOOD CELL (test code = 17.97 x10 3/uL 4.5-11.0 H WBC) RED BLOOD CELL (test code = 1.67 x10 6/uL 3.54-5.02 L RBC) HEMOGLOBIN (test code = HGB) 5.8 g/dL 11.0-15.0 LL HEMATOCRIT (test code = HCT) 17.9 % 33.0-45.0 L MEAN CELL VOLUME (test code = 107.2 fL 81.0-99.0 H MCV) MEAN CELL HGB (test code = 34.7 pg 27.0-33.0 H MCH) MEAN CELL HGB CONCETRATION 32.4 g/dL 33.0-37.0 L (test code = MCHC) PLATELET COUNT (test code = 226 x10 3/uL 150-400 N PLT) MEAN PLATELET VOLUME (test 11.0 fL 7.0-9.0 H code = MPV) MANUAL DIFF REQUIRED (test YES code = MDIFF) WBC [id number] 11:20:00 Test Item Value Reference Range Interpretation Comments SEGMENTED NEUTROPHILS (test 50.0 % 37-69 N code = SEG) LYMPHOCYTE (test code = 35.5 % 23-55 N LYMPH) MONOCYTE (test code = MON) 11.8 % 0-10 H EOSINOPHIL (test code = 1.8 % 0.0-4.0 N EOS) MYELOCYTE (test code = 0.9 % 0.0-0.0 H MYELO) NUCLEATED RED BLOOD CELL 27.3 % (test code = NRBC) POLYCHROMASIA (test code = 1+ POLC) HYPOCHROMIA (test code = 1+ HYPO) POIKILOCYTOSIS (test code = 1+ POIK) ANISOCYTOSIS (test code = 2+ ANISO) MACROCYTOSIS (test code = 2+ MACR) ELLIPTOCYTES (test code = 1+ ELL) SICKLE CELLS (test code = 1+ SICKL) PLATELET ESTIMATE (test Adequate THOUSAND ADEQUATE code = PLTEST) PLATELET MORPHOLOGY (test NORMAL code = PLTMORPH) - XR FOOT 3 + V [id number] 09:12:00 FAX: Juan Jose Fernandez NP [phone] [place]: St: ADM FAX: Beau Odell [phone] Name: RODRIGO OSWALD [facility] : 1980 Age/S: 38/F [address] [place] [address] Unit #: [id number] Loc: [address] [address] Phys: Juan Jose Fernandez NP Acct: [id number] Dis Date: Status: ADM IN PHONE #: [phone] Exam Date: 11/29/2018 08 FAX #: [phone] Reason: R/O CELLULITIS/OM EXAMS: CPT CODE: [id number] XR FOOT 3 + [place] [id number] Right foot 3views: HISTORY: Cellulitis. FINDINGS: Bony alignment in the foot is satisfactory without fracture or dislocation. No soft tissue foreign body or gas formation. There are no areas of bony destruction or abnormal periosteal reaction to indicate osteomyelitis SL: EG-H at 0912 Reported and signed by: Alessio Salinas M.D. CC: Juan Jose Fernandez NP; Shankar Persaud MD Technologist: [place] Saba RT(R) Trnscrd Date/Time/By: 11/29/2018 (0912) : By: [email or web address] Orig Print D/T: S: 11/29/2018 (9122) PAGE 1 Signed ReportCBC W/AUTO [id number] 08:43:00 Test Item Value Reference Range Interpretation Comments WHITE BLOOD CELL (test code = 17.97 x10 3/uL 4.5-11.0 H WBC) RED BLOOD CELL (test code = 1.67 x10 6/uL 3.54-5.02 L RBC) HEMOGLOBIN (test code = HGB) 5.8 g/dL 11.0-15.0 LL HEMATOCRIT (test code = HCT) 17.9 % 33.0-45.0 L MEAN CELL VOLUME (test code = 107.2 fL 81.0-99.0 H MCV) MEAN CELL HGB (test code = 34.7 pg 27.0-33.0 H MCH) MEAN CELL HGB CONCETRATION 32.4 g/dL 33.0-37.0 L (test code = MCHC) PLATELET COUNT (test code = 226 x10 3/uL 150-400 N PLT) MEAN PLATELET VOLUME (test 11.0 fL 7.0-9.0 H code = MPV) MANUAL DIFF REQUIRED (test YES code = MDIFF) WBC [id number] 08:43:00 Test Item Value Reference Range Interpretation Comments ANISOCYTOSIS (test code = ANISO) PLATELET ESTIMATE (test code = THOUSAND ADEQUATE PLTEST) CBC W/AUTO [id number] 08:43:00 Test Item Value Reference Range Interpretation Comments WHITE BLOOD CELL (test code = 17.97 x10 3/uL 4.5-11.0 H WBC) RED BLOOD CELL (test code = 1.67 x10 6/uL 3.54-5.02 L RBC) HEMOGLOBIN (test code = HGB) 5.8 g/dL 11.0-15.0 LL HEMATOCRIT (test code = HCT) 17.9 % 33.0-45.0 L MEAN CELL VOLUME (test code = 107.2 fL 81.0-99.0 H MCV) MEAN CELL HGB (test code = 34.7 pg 27.0-33.0 H MCH) MEAN CELL HGB CONCETRATION 32.4 g/dL 33.0-37.0 L (test code = MCHC) PLATELET COUNT (test code = 226 x10 3/uL 150-400 N PLT) MEAN PLATELET VOLUME (test 11.0 fL 7.0-9.0 H code = MPV) MANUAL DIFF REQUIRED (test YES code = MDIFF) WBC [id number] 08:43:00 Test Item Value Reference Range Interpretation Comments ANISOCYTOSIS (test code = ANISO) PLATELET ESTIMATE (test code = THOUSAND ADEQUATE PLTEST) BASIC METABOLIC [id number] 08:20:00 Test Item Value Reference Range Interpretation Comments SODIUM (test code = NA) 138 mEq/L 134-147 N POTASSIUM (test code = 3.9 mEq/L 3.4-5.0 N K) CHLORIDE (test code = 110 mEq/L 100-108 H CL) CARBON DIOXIDE (test 23 mEq/L 21-33 N code = CO2) ANION GAP (test code = 9 0-20 N GAP) GLUCOSE (test code = 112 mg/dL 70-110 H GLU) BLOOD UREA NITROGEN 7 mg/dL 7-18 N (test code = BUN) GLOMERULAR FILTRATION 134.7 105-110 H Units of measure = RATE (test code = GFR) ml/mi n/1.73 m2 CREATININE (test code = 0.6 mg/dL 0.6-1.3 N CREAT) CALCIUM (test code = 7.8 mg/dL 8.0-10.5 L CA) [id number] 08:20:00 Test Item Value Reference Range Interpretation Comments PHOSPHOROUS (test code = PHOS) 4.2 mg/dL 2.5-4.9 N [id number] 08:20:00 Test Item Value Reference Range Interpretation Comments MAGNESIUM (test code = MAG) 1.70 mg/dL 1.8-2.4 L UR HCG [id number] 06:20:00 Test Item Value Reference Range Interpretation Comments UR HCG QUAL (test code = HCGQLU) NEGATIVE NEGATIVE URINALYSIS [id number] 06:20:00 Test Item Value Reference Range Interpretation Comments UA COLOR (test code = COLU) YELLOW YEL/STRAW UA APPEARANCE (test code = CLEAR CLEAR APPU) UA GLUCOSE DIPSTICK (test code NEGATIVE NEGATIVE = DGLUU) UA BILIRUBIN DIPSTICK (test NEGATIVE NEGATIVE code = BILU) UA KETONE DIPSTICK (test code NEGATIVE NEGATIVE = KETU) UA SPECIFIC GRAVITY (test code 1.010 1.005-1.030 N = SGU) UA BLOOD DIPSTICK (test code = 1+ NEGATIVE A HALEY) UA PH DIPSTICK (test code = 5.0 5.0-7.0 N NEERU) UA PROTEIN DIPSTICK (test code NEGATIVE NEGATIVE = PROU) UA UROBILINIOGEN DIPSTICK 0.2 mg/dL 0.2-1.0 (test code = URO) UA NITRITE DIPSTICK (test code NEGATIVE NEGATIVE = RAJENDRA) UA LEUKOCYTE ESTERASE DIPSTICK NEGATIVE NEGATIVE (test code = LEUU) UA WBC (test code = WBCU) 0-3 WBC/HPF 0-3 UA RBC (test code = RBCU) 0-3 RBC/HPF 0-3 UA BACTERIA (test code = BACU) NONE SEEN /HPF NONE SEEN UA SQUAMOUS CELLS (test code = 0-5 /HPF NONE SEEN SQU) UA MUCUS (test code = MUCU) TRACE /LPF NONE SEEN COMMENTS: Clean CatchUA CULT [id number] 06:20:00 Test Item Value Reference Range Interpretation Comments UA CULTURE NEEDED? NO, WBC<10 Culture Chk Criteria not met, (test code = Criteria Urine Culture UACULT) cancelled. COMMENTS: Clean CatchPROCALCITONIN (PCT)2018-11-29 00:21:00 Test Item Value Reference Range Interpretation Comments PROCALCITONIN (PCT) 0.23 ng/mL 0.00-0.05 H PROCALCI TONIN (PCT) (test code = PROCAL) NORMAL RANGE (ADULT): <0.05 NG/ML. * a concentration < 0.5 ng/mL represent s a low risk of severe sepsis and/or septic s hock.* a concentration > 2 ng/mL represents a hi gh risk of severe seps is and/or septic shock.Neverthel ess, concentrations <0.5 ng/mL do not ex clude aninfection, on account of localized in fections (withoutsystemi c signs) which can be as sociated with such lowconcentratio ns, or a systemic infect ion in its initialstag es (< 6 hours). Further more, increased procalcitoninca n occur without infecti on. PCT concentrations between 0.5and 2.0 ng/m L should be interpreted taking into account thepatient's hi story. It is recommend ed to retest PCT with in6-24 hours if any concentrations <2 ng/mL are obtained. - XR CHEST 1 [id number] 23:30:00 FAX: Na Chauhan DO [place]: St: ADM Name: RODRIGO OSWALD [facility] : 1980 Age/S: 38/F [address] [place] [address] Unit#: [id number] Loc: [place] [address] Phys: Na Chauhan DO Acct: [id number] Dis Date: Status: ADM IN PHONE #: [phone] Exam Date: 11/28/20182317 FAX #: [phone] Reason: fever EXAMS: CPT CODE: [id number] XR CHEST 1 V 19111 EXAM: CR, XR chest one view: 11/28/2018, [...] tip at atriocaval junction. SL: [JSYED-H] at 2650 Reported and signed by: Nitesh Garcia M.D. 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 Rather, the pat ient sclinical prese ntation (history, physi taryn exam) and ECGshould b e used in conjunction wit h troponin in thediagnosti c evaluation of s uspected myocardial infa rction. Aserial samplin g protocol is recommended to facilitate the identification of temporal changes in trop onin levels characteristic of ID. CHEMISTRY 8 [id number] 23:26:00 Test Item Value Reference Range Interpretation Comments ISTAT-SODIUM (test code = NAP) MMOL/L 134-147 ISTAT-POTASSIUM (test code = KP) MMOL/L 3.4-5.0 ISTAT-CHLORIDE (test code = CLP) MMOL/L 100-108 ISTAT CARBON DIOXIDE (test code = mmol/L 21-33 N ISTAT-CO2) ISTAT CALCIUM IONIZED (test code = MG/DL 1.12-1.32 ISTAT-MUKESH) ISTAT-GLUCOSE (test code = GLUP) MG/DL 70-110 N ISTAT-BUN (test code = BUNP) MG/DL 7-18 L BEDSIDE CREATININE (test code = MG/DL 0.6-1.3 L CREATBED) GLOMERULAR FILTRATION RATE POC 229 ML/MIN (test code = GFRBED) CHEMISTRY 8 [id number] 23:26:00 Test Item Value Reference Range Interpretation Comments ISTAT-SODIUM (test 139 MMOL/L 134-147 N code = NAP) ISTAT-POTASSIUM (test 4.1 MMOL/L 3.4-5.0 N code = KP) ISTAT-CHLORIDE (test 105 MMOL/L 100-108 N Perform ed by code = CLP) certified opera tor at [facility] ISTAT CARBON DIOXIDE 25.0 mmol/L 21-33 N (test code = ISTAT-CO2) ISTAT CALCIUM IONIZED 1.16 MG/DL 1.12-1.32 N (test code = ISTAT-MUKESH) ISTAT-GLUCOSE (test 78 MG/DL 70-110 N code = GLUP) ISTAT-BUN (test code = 6 MG/DL 7-18 L BUNP) BEDSIDE CREATININE 0.4 MG/DL 0.6-1.3 L (test code = CREATBED) GLOMERULAR FILTRATION 229 ML/MIN RATE POC (test code = GFRBED) LACTIC ACID [id number] 23:20:00 Test Item Value Reference Range Interpretation Comments LACTIC ACID POC 0.8 MMOL/L 0.90-1.70 L Performed by certified (test code = LACTP) lockstitch tunnel elastic operator at [facility] HEPATIC FUNCTION [id number] 23:12:00 Test Item Value Reference Range Interpretation Comments TOTAL PROTEIN (test code = PROT) 8.4 g/dL 6.4-8.2 H ALBUMIN (test code = ALB) 3.00 g/dL 3.4-5.0 L BILIRUBIN TOTAL (test code = 1.90 mg/dL 0.0-1.0 H BILT) BILIRUBIN DIRECT (test code = 0.70 MG/DL 0.0-0.30 H BILD) BILIRUBIN INDIRECT (test code = 1.20 MG/DL BILIND) SGOT/AST (test code = AST) 127 IUnit/L 15-37 H SGPT/ALT (test code = ALT) 74 IUnit/L 15-65 H ALKALINE PHOSPHATASE TOTAL (test 175 IUnit/L 20-125 H code = ALKP) CBC W/AUTO [id number] 23:12:00 Test Item Value Reference Range Interpretation Comments WHITE BLOOD CELL (test code = 21.28 x10 3/uL 4.5-11.0 H WBC) RED BLOOD CELL (test code = 1.75 x10 6/uL 3.54-5.02 L RBC) HEMOGLOBIN (test code = HGB) 6.1 g/dL 11.0-15.0 LL HEMATOCRIT (test code = HCT) 18.3 % 33.0-45.0 L MEAN CELL VOLUME (test code = 104.6 fL 81.0-99.0 H MCV) MEAN CELL HGB (test code = 34.9 pg 27.0-33.0 H MCH) MEAN CELL HGB CONCETRATION 33.3 g/dL 33.0-37.0 N (test code = MCHC) RED CELL DISTRIBUTION WIDTH CV 29.7 % 11.5-14.5 H (test code = RDW) RED CELL DISTRIBUTION WIDTH SD 106.2 fL 37.0-54.0 H (test code = RDW-SD) PLATELET COUNT (test code = 228 x10 3/uL 150-400 N PLT) MEAN PLATELET VOLUME (test 10.4 fL 7.0-9.0 H code = MPV) MANUAL DIFF REQUIRED (test YES code = MDIFF) WBC [id number] 23:12:00 Test Item Value Reference Range Interpretation Comments SEGMENTED NEUTROPHILS (test 54.3 % 37-69 N code = SEG) LYMPHOCYTE (test code = 30.5 % 23-55 N LYMPH) MONOCYTE (test code = MON) 10.5 % 0-10 H EOSINOPHIL (test code = 4.7 % 0.0-4.0 H EOS) NUCLEATED RED BLOOD CELL 47.6 % (test code = NRBC) POLYCHROMASIA (test code = 2+ POLC) HYPOCHROMIA (test code = 1+ HYPO) POIKILOCYTOSIS (test code = 3+ POIK) ANISOCYTOSIS (test code = 2+ ANISO) MICROCYTOSIS (test code = 1+ MICR) MACROCYTOSIS (test code = 1+ MACR) TARGET CELLS (test code = 1+ TGT) TEAR DROP CELLS (test code 1+ = TEAR) SICKLE CELLS (test code = 2+ SICKL) PLATELET ESTIMATE (test Adequate THOUSAND ADEQUATE code = PLTEST) RETIC COUNT (AUTOMATED)2018-11-28 23:12:00 Test Item Value Reference Range Interpretation Comments RETIC COUNT (AUTOMATED) (test code = 33.7 % 0.3-2.3 H RETICA) CBC W/AUTO [id number] 23:10:00 Test Item Value Reference Range Interpretation Comments WHITE BLOOD CELL (test code = 21.28 x10 3/uL 4.5-11.0 H WBC) RED BLOOD CELL (test code = 1.75 x10 6/uL 3.54-5.02 L RBC) HEMOGLOBIN (test code = HGB) 6.1 g/dL 11.0-15.0 LL HEMATOCRIT (test code = HCT) 18.3 % 33.0-45.0 L MEAN CELL VOLUME (test code = 104.6 fL 81.0-99.0 H MCV) MEAN CELL HGB (test code = 34.9 pg 27.0-33.0 H MCH) MEAN CELL HGB CONCETRATION 33.3 g/dL 33.0-37.0 N (test code = MCHC) RED CELL DISTRIBUTION WIDTH CV 29.7 % 11.5-14.5 H (test code = RDW) RED CELL DISTRIBUTION WIDTH SD 106.2 fL 37.0-54.0 H (test code = RDW-SD) PLATELET COUNT (test code = 228 x10 3/uL 150-400 N PLT) MEAN PLATELET VOLUME (test 10.4 fL 7.0-9.0 H code = MPV) MANUAL DIFF REQUIRED (test YES code = MDIFF) WBC [id number] 23:10:00 Test Item Value Reference Range Interpretation Comments ANISOCYTOSIS (test code = ANISO) PLATELET ESTIMATE (test code = THOUSAND ADEQUATE PLTEST) RETIC COUNT (AUTOMATED)2018-11-28 23:10:00 Test Item Value Reference Range Interpretation Comments RETIC COUNT (AUTOMATED) (test code = 33.7 % 0.3-2.3 H RETICA) CBC W/AUTO [id number] 23:10:00 Test Item Value Reference Range Interpretation Comments WHITE BLOOD CELL (test code = 21.28 x10 3/uL 4.5-11.0 H WBC) RED BLOOD CELL (test code = 1.75 x10 6/uL 3.54-5.02 L RBC) HEMOGLOBIN (test code = HGB) 6.1 g/dL 11.0-15.0 LL HEMATOCRIT (test code = HCT) 18.3 % 33.0-45.0 L MEAN CELL VOLUME (test code = 104.6 fL 81.0-99.0 H MCV) MEAN CELL HGB (test code = 34.9 pg 27.0-33.0 H MCH) MEAN CELL HGB CONCETRATION 33.3 g/dL 33.0-37.0 N (test code = MCHC) RED CELL DISTRIBUTION WIDTH CV 29.7 % 11.5-14.5 H (test code = RDW) RED CELL DISTRIBUTION WIDTH SD 106.2 fL 37.0-54.0 H (test code = RDW-SD) PLATELET COUNT (test code = 228 x10 3/uL 150-400 N PLT) MEAN PLATELET VOLUME (test 10.4 fL 7.0-9.0 H code = MPV) MANUAL DIFF REQUIRED (test YES code = MDIFF) WBC [id number] 23:10:00 Test Item Value Reference Range Interpretation Comments ANISOCYTOSIS (test code = ANISO) PLATELET ESTIMATE (test code = THOUSAND ADEQUATE PLTEST) RETIC COUNT (AUTOMATED)2018-11-28 23:10:00 Test Item Value Reference Range Interpretation Comments RETIC COUNT (AUTOMATED) (test code = 33.7 % 0.3-2.3 H RETICA) PROTHROMBIN [id number] 23:07:00 Test Item Value Reference Range Interpretation Comments PROTHROMBIN TIME 14.8 SECONDS 9.3-12.9 H PATIENT (test code = PTP) INTERNATIONAL NORMAL 1.3 0.8-1.2 H TARGET RATIO (test code = INR BY IN DICATION INR) Indication INR1. Prophyl axis of venous thrombos is 2.0 - 3. 0 (orthopedic michael wilner), Prophylaxis of venous thrombos is (other than hig h-risk surgery), Marianne tment of Deep Vein Thrombosis/Pulm onary Embolism, Preve ntion of systemic emb olism - Tissue heart va lves, Acute Myocardia l Infarction (to prevent systemic embo lism), Valvular heart disease, Atri al Fibrillation, Bileaflet mecha nical valve in aortic position.2. Mec hanical prosthetic valv es (high risk), 2.5 - 3.5 Presence of Lupus Anticoagu lant or Antiphospholi pid Antibodies, Pre vention of systemic e mbolism - Acute Myocard ial Infarction (t o prevent recurre nt infarct). THROMBOPLASTIN TIME [id number] 23:07:00 Test Item Value Reference Range Interpretation Comments THROMBOPLASTIN TIME 36.8 Seconds 25.0-39.5 N Ther apeutic PARTIAL (test code = Range: 61.8-83.8 PTT) Sec Effective 09/17/2013 CBC W/AUTO [id number] 22:53:00 Test Item Value Reference Range Interpretation Comments WHITE BLOOD CELL (test code = 21.28 x10 3/uL 4.5-11.0 H WBC) RED BLOOD CELL (test code = 1.75 x10 6/uL 3.54-5.02 L RBC) HEMOGLOBIN (test code = HGB) 6.1 g/dL 11.0-15.0 LL HEMATOCRIT (test code = HCT) 18.3 % 33.0-45.0 L MEAN CELL VOLUME (test code = 104.6 fL 81.0-99.0 H MCV) MEAN CELL HGB (test code = 34.9 pg 27.0-33.0 H MCH) MEAN CELL HGB CONCETRATION 33.3 g/dL 33.0-37.0 N (test code = MCHC) RED CELL DISTRIBUTION WIDTH CV 29.7 % 11.5-14.5 H (test code = RDW) RED CELL DISTRIBUTION WIDTH SD 106.2 fL 37.0-54.0 H (test code = RDW-SD) PLATELET COUNT (test code = 228 x10 3/uL 150-400 N PLT) MEAN PLATELET VOLUME (test 10.4 fL 7.0-9.0 H code = MPV) LYMPHOCYTE % (test code = LY%) % 14.0-32.0 MANUAL DIFF REQUIRED (test code = MDIFF) RETIC COUNT (AUTOMATED)2018-11-28 22:53:00 Test Item Value Reference Range Interpretation Comments RETIC COUNT (AUTOMATED) (test code = 33.7 % 0.3-2.3 H RETICA) [id number] 11:06:00 Test Item Value Reference Range Interpretation Comments HEMOGLOBIN (BEAKER) (test code = 7.1 GM/DL 11.2-15.7 L 410) CBC W/PLT COUNT & AUTO [id number] 09:43:00 Test Item Value Reference Range Interpretation Comments WHITE BLOOD CELL COUNT (BEAKER) 16.2 K/ L 3.5-10.5 H (test code = 775) RED BLOOD CELL COUNT (BEAKER) 2.13 M/ L 3.93-5.22 L (test code = 761) HEMOGLOBIN (BEAKER) (test code = 6.7 GM/DL 11.2-15.7 L 410) HEMATOCRIT (BEAKER) (test code = 20.8 % 34.1-44.9 L 411) MEAN CORPUSCULAR VOLUME (BEAKER) 97.7 fL 79.4-94.8 H (test code = 753) MEAN CORPUSCULAR HEMOGLOBIN 31.5 pg 25.6-32.2 (BEAKER) (test code = 751) MEAN CORPUSCULAR HEMOGLOBIN CONC 32.2 GM/DL 32.2-35.5 (BEAKER) (test code = 752) RED CELL DISTRIBUTION WIDTH 19.5 % 11.7-14.4 H (BEAKER) (test code = 412) PLATELET COUNT (BEAKER) (test 293 K/CU MM 150-450 code = 756) MEAN PLATELET VOLUME (BEAKER) 11.0 fL 9.4-12.3 (test code = 754) NUCLEATED RED BLOOD CELLS 1 /100 WBC 0-0 H (BEAKER) (test code = 413) (CELLAVISION MANUAL DIFF)2018-10-04 09:43:00 Test Item Value Reference Range Interpretation Comments NEUTROPHILS - REL 41 % (CELLAVISION)(BEAKER) (test code = 2816) LYMPHOCYTES - REL 43 % (CELLAVISION)(BEAKER) (test code = 2817) MONOCYTES - REL 7 % (CELLAVISION)(BEAKER) (test code = 2818) EOSINOPHILS - REL 8 % (CELLAVISION)(BEAKER) (test code = 2819) NEUTROPHILS - ABS 6.64 K/ul 1.56-6.13 H (CELLAVISION)(BEAKER) (test code = 2830) LYMPHOCYTES - ABS 6.97 K/ul 1.18-3.74 H (CELLAVISION)(BEAKER) (test code = 2831) MONOCYTES - ABS 1.13 K/uL 0.24-0.36 H (CELLAVISION)(BEAKER) (test code = 2832) EOSINOPHILS - ABS 1.30 K/uL 0.04-0.36 H (CELLAVISION)(BEAKER) (test code = 2834) TOTAL COUNTED (BEAKER) (test code 100 = 1351) MANUAL NRBC PER 100 CELLS 2 /100 WBC 0-0 H (BEAKER) (test code = 1353) WBC MORPHOLOGY (BEAKER) (test Normal code = 487) LARGE PLT(BEAKER) (test code = Present 2156) POLYCHROMATOPHILLIC RBCS(BEAKER) 2+ moderate (test code = 478) HYPOCHROMIA (BEAKER) (test code = 1+ few 963) TARGET CELLS (BEAKER) (test code 2+ moderate = 480) SICKLE CELLS (BEAKER) (test code 2+ moderate = 767) MATTHEWS-JOLLY BODIES (BEAKER) 1+ few (test code = 475) ARTIFACT (CELLAVISION)(BEAKER) Present (test code = 3432) PLATELET CONCENTRATION Adequate (CELLAVISION)(BEAKER) (test code = 3438) Received comment: User comments: Slide comments:BASIC METABOLIC [id number] 06:18:00 Test Item Value Reference Range Interpretation Comments SODIUM (BEAKER) 138 meq/L 136-145 (test code = 381) POTASSIUM (BEAKER) 4.5 meq/L 3.5-5.1 (test code = 379) CHLORIDE (BEAKER) 102 meq/L 98-107 (test code = 382) CO2 (BEAKER) (test 30 meq/L 22-29 H code = 355) BLOOD UREA NITROGEN 13 mg/dL 7-21 (BEAKER) (test code = 354) CREATININE (BEAKER) 0.62 mg/dL 0.57-1.25 (test code = 358) GLUCOSE RANDOM 94 mg/dL 70-105 (BEAKER) (test code = 652) CALCIUM (BEAKER) 8.9 mg/dL 8.4-10.2 (test code = 697) EGFR (BEAKER) (test 130 mL/min/1.73 ESTIM ATED GFR IS code = 1092) sq m NOT ACCURATE CREATININE CLEARANCE IN PREDICTING GLOMERULAR FILTRATION RATE . ESTIMATED GFR I S NOT APPLICABLE FOR DIALYSIS PATIEN TS. Specimen slightly ictericCBC W/PLT COUNT & AUTO [id number] 13:29:00 Test Item Value Reference Range Interpretation Comments WHITE BLOOD CELL COUNT (BEAKER) 15.0 K/ L 3.5-10.5 H (test code = 775) RED BLOOD CELL COUNT (BEAKER) 2.07 M/ L 3.93-5.22 L (test code = 761) HEMOGLOBIN (BEAKER) (test code = 6.6 GM/DL 11.2-15.7 L 410) HEMATOCRIT (BEAKER) (test code = 20.3 % 34.1-44.9 L 411) MEAN CORPUSCULAR VOLUME (BEAKER) 98.1 fL 79.4-94.8 H (test code = 753) MEAN CORPUSCULAR HEMOGLOBIN 31.9 pg 25.6-32.2 (BEAKER) (test code = 751) MEAN CORPUSCULAR HEMOGLOBIN CONC 32.5 GM/DL 32.2-35.5 (BEAKER) (test code = 752) RED CELL DISTRIBUTION WIDTH 19.6 % 11.7-14.4 H (BEAKER) (test code = 412) PLATELET COUNT (BEAKER) (test 281 K/CU MM 150-450 code = 756) MEAN PLATELET VOLUME (BEAKER) 10.5 fL 9.4-12.3 (test code = 754) NUCLEATED RED BLOOD CELLS 1 /100 WBC 0-0 H (BEAKER) (test code = 413) (CELLAVISION MANUAL DIFF)[id number] 13:29:00 Test Item Value Reference Range Interpretation Comments NEUTROPHILS - REL 48 % (CELLAVISION)(BEAKER) (test code = 2816) LYMPHOCYTES - REL 25 % (CELLAVISION)(BEAKER) (test code = 2817) MONOCYTES - REL 15 % (CELLAVISION)(BEAKER) (test code = 2818) EOSINOPHILS - REL 9 % (CELLAVISION)(BEAKER) (test code = 2819) BANDS - REL (CELLAVISION)(BEAKER) 1 % 0-10 (test code = 2826) ATYPICAL LYMPHOCYTES - REL 2 % 0-0 H (CELLAVISION)(BEAKER) (test code = 2829) NEUTROPHILS - ABS 7.20 K/ul 1.56-6.13 H (CELLAVISION)(BEAKER) (test code = 2830) LYMPHOCYTES - ABS 3.75 K/ul 1.18-3.74 H (CELLAVISION)(BEAKER) (test code = 2831) MONOCYTES - ABS 2.25 K/uL 0.24-0.36 H (CELLAVISION)(BEAKER) (test code = 2832) EOSINOPHILS - ABS 1.35 K/uL 0.04-0.36 H (CELLAVISION)(BEAKER) (test code = 2834) BANDS - ABS (CELLAVISION)(BEAKER) 0.15 K/uL 0.00-0.80 (test code = 1660) ATYPICAL LYMPHOCYTES - ABS 0.30 K/uL 0.00-0.00 H (CELLAVISION)(BEAKER) (test code = 2858) TOTAL COUNTED (BEAKER) (test code 100 = 1351) MANUAL NRBC PER 100 CELLS 2 /100 WBC 0-0 H (BEAKER) (test code = 1353) SMUDGE CELLS (BEAKER) (test code Present = 1371) GIANT PLATELETS (BEAKER) (test Present code = 313) POLYCHROMATOPHILLIC RBCS(BEAKER) 1+ few (test code = 478) ANISOCYTOSIS (BEAKER) (test code 2+ moderate = 961) MACROCYTES (BEAKER) (test code = 2+ moderate 964) TARGET CELLS (BEAKER) (test code 1+ few = 480) SCHISTOCYTES (BEAKER) (test code 1+ few = 765) SICKLE CELLS (BEAKER) (test code 2+ moderate = 767) OVALOCYTES (BEAKER) (test code = 1+ few 477) HELMET CELLS 1+ few (CELLAVISION)(BEAKER) (test code = 3434) PLATELET CONCENTRATION Adequate (CELLAVISION)(BEAKER) (test code = 3438) Received comment: User comments: Slide comments:BASIC METABOLIC [id number] 07:09:00 Test Item Value Reference Range Interpretation Comments SODIUM (BEAKER) 140 meq/L 136-145 (test code = 381) POTASSIUM (BEAKER) 4.3 meq/L 3.5-5.1 (test code = 379) CHLORIDE (BEAKER) 105 meq/L 98-107 (test code = 382) CO2 (BEAKER) (test 29 meq/L 22-29 code = 355) BLOOD UREA NITROGEN 14 mg/dL 7-21 (BEAKER) (test code = 354) CREATININE (BEAKER) 0.63 mg/dL 0.57-1.25 (test code = 358) GLUCOSE RANDOM 102 mg/dL 70-105 (BEAKER) (test code = 652) CALCIUM (BEAKER) 8.5 mg/dL 8.4-10.2 (test code = 697) EGFR (BEAKER) (test 128 mL/min/1.73 ESTIM ATED GFR IS code = 1092) sq m NOT ACCURATE CREATININE CLEARANCE IN PREDICTING GLOMERULAR FILTRATION RATE . ESTIMATED GFR I S NOT APPLICABLE FOR DIALYSIS PATIEN TS. CBC W/PLT COUNT & AUTO [id number] 12:29:00 Test Item Value Reference Range Interpretation Comments WHITE BLOOD CELL COUNT (BEAKER) 14.2 K/ L 3.5-10.5 H (test code = 775) RED BLOOD CELL COUNT (BEAKER) 2.11 M/ L 3.93-5.22 L (test code = 761) HEMOGLOBIN (BEAKER) (test code = 6.7 GM/DL 11.2-15.7 L 410) HEMATOCRIT (BEAKER) (test code = 20.6 % 34.1-44.9 L 411) MEAN CORPUSCULAR VOLUME (BEAKER) 97.6 fL 79.4-94.8 H (test code = 753) MEAN CORPUSCULAR HEMOGLOBIN 31.8 pg 25.6-32.2 (BEAKER) (test code = 751) MEAN CORPUSCULAR HEMOGLOBIN CONC 32.5 GM/DL 32.2-35.5 (BEAKER) (test code = 752) RED CELL DISTRIBUTION WIDTH 20.2 % 11.7-14.4 H (BEAKER) (test code = 412) PLATELET COUNT (BEAKER) (test 280 K/CU MM 150-450 code = 756) MEAN PLATELET VOLUME (BEAKER) 10.3 fL 9.4-12.3 (test code = 754) NUCLEATED RED BLOOD CELLS 1 /100 WBC 0-0 H (BEAKER) (test code = 413) (CELLAVISION MANUAL DIFF)2018-10-02 12:29:00 Test Item Value Reference Range Interpretation Comments NEUTROPHILS - REL 43 % (CELLAVISION)(BEAKER) (test code = 2816) LYMPHOCYTES - REL 35 % (CELLAVISION)(BEAKER) (test code = 2817) MONOCYTES - REL 8 % (CELLAVISION)(BEAKER) (test code = 2818) EOSINOPHILS - REL 8 % (CELLAVISION)(BEAKER) (test code = 2819) BASOPHILS - REL 2 % (CELLAVISION)(BEAKER) (test code = 2820) MYELOCYTES - REL 1 % 0-0 H (CELLAVISION)(BEAKER) (test code = 2822) PROMYELOCYTES - REL 1 % 0-0 H (CELLAVSION)(BEAKER) (test code = 2825) ATYPICAL LYMPHOCYTES - REL 2 % 0-0 H (CELLAVISION)(BEAKER) (test code = 2829) NEUTROPHILS - ABS 6.11 K/ul 1.56-6.13 (CELLAVISION)(BEAKER) (test code = 2830) LYMPHOCYTES - ABS 4.97 K/ul 1.18-3.74 H (CELLAVISION)(BEAKER) (test code = 2831) MONOCYTES - ABS 1.14 K/uL 0.24-0.36 H (CELLAVISION)(BEAKER) (test code = 2832) EOSINOPHILS - ABS 1.14 K/uL 0.04-0.36 H (CELLAVISION)(BEAKER) (test code = 2834) BASOPHILS - ABS 0.28 K/uL 0.01-0.08 H (CELLAVISION)(BEAKER) (test code = 2835) MYELOCYTES-ABS 0.14 K/uL 0.00-0.00 H (CELLAVISION)(BEAKER) (test code = 2837) PROMYELOCYTES - ABS 0.14 K/uL 0.00-0.00 H (CELLAVISION)(BEAKER) (test code = 2838) ATYPICAL LYMPHOCYTES - ABS 0.28 K/uL 0.00-0.00 H (CELLAVISION)(BEAKER) (test code = 2858) TOTAL COUNTED (BEAKER) (test code 100 = 1351) MANUAL NRBC PER 100 CELLS 2 /100 WBC 0-0 H (BEAKER) (test code = 1353) SMUDGE CELLS (BEAKER) (test code Present = 1371) GIANT PLATELETS (BEAKER) (test Present code = 313) POLYCHROMATOPHILLIC RBCS(BEAKER) 1+ few (test code = 478) ANISOCYTOSIS (BEAKER) (test code 2+ moderate = 961) MACROCYTES (BEAKER) (test code = 2+ moderate 964) TARGET CELLS (BEAKER) (test code 1+ few = 480) SCHISTOCYTES (BEAKER) (test code 1+ few = 765) SICKLE CELLS (BEAKER) (test code 1+ few = 767) PLATELET CONCENTRATION Adequate (CELLAVISION)(BEAKER) (test code = 3438) Received comment: User comments: Slide comments:[id number] 07:28:00 Test Item Value Reference Range Interpretation Comments FERRITIN (BEAKER) (test code = 69073 ng/mL 5-275 H 361) BASIC METABOLIC [id number] 06:25:00 Test Item Value Reference Range Interpretation Comments SODIUM (BEAKER) 139 meq/L 136-145 (test code = 381) POTASSIUM (BEAKER) 3.9 meq/L 3.5-5.1 (test code = 379) CHLORIDE (BEAKER) 103 meq/L 98-107 (test code = 382) CO2 (BEAKER) (test 30 meq/L 22-29 H code = 355) BLOOD UREA NITROGEN 15 mg/dL 7-21 (BEAKER) (test code = 354) CREATININE (BEAKER) 0.63 mg/dL 0.57-1.25 (test code = 358) GLUCOSE RANDOM 106 mg/dL 70-105 H (BEAKER) (test code = 652) CALCIUM (BEAKER) 8.4 mg/dL 8.4-10.2 (test code = 697) EGFR (BEAKER) (test 128 mL/min/1.73 ESTIM ATED GFR IS code = 1092) sq m NOT ACCURATE CREATININE CLEARANCE IN PREDICTING GLOMERULAR FILTRATION RATE . ESTIMATED GFR I S NOT APPLICABLE FOR DIALYSIS PATIEN TS. Specimen slightly ictericCBC W/PLT COUNT & AUTO [id number] 10:00:00 Test Item Value Reference Range Interpretation Comments WHITE BLOOD CELL COUNT (BEAKER) 14.6 K/ L 3.5-10.5 H (test code = 775) RED BLOOD CELL COUNT (BEAKER) 2.25 M/ L 3.93-5.22 L (test code = 761) HEMOGLOBIN (BEAKER) (test code = 7.2 GM/DL 11.2-15.7 L 410) HEMATOCRIT (BEAKER) (test code = 21.8 % 34.1-44.9 L 411) MEAN CORPUSCULAR VOLUME (BEAKER) 96.9 fL 79.4-94.8 H (test code = 753) MEAN CORPUSCULAR HEMOGLOBIN 32.0 pg 25.6-32.2 (BEAKER) (test code = 751) MEAN CORPUSCULAR HEMOGLOBIN CONC 33.0 GM/DL 32.2-35.5 (BEAKER) (test code = 752) RED CELL DISTRIBUTION WIDTH 21.2 % 11.7-14.4 H (BEAKER) (test code = 412) PLATELET COUNT (BEAKER) (test 273 K/CU MM 150-450 code = 756) MEAN PLATELET VOLUME (BEAKER) 11.2 fL 9.4-12.3 (test code = 754) NUCLEATED RED BLOOD CELLS 2 /100 WBC 0-0 H (BEAKER) (test code = 413) (CELLAVISION MANUAL DIFF)2018-09-30 10:00:00 Test Item Value Reference Range Interpretation Comments NEUTROPHILS - REL 49 % (CELLAVISION)(BEAKER) (test code = 2816) LYMPHOCYTES - REL 33 % (CELLAVISION)(BEAKER) (test code = 2817) MONOCYTES - REL 11 % (CELLAVISION)(BEAKER) (test code = 2818) EOSINOPHILS - REL 6 % (CELLAVISION)(BEAKER) (test code = 2819) ATYPICAL LYMPHOCYTES - REL 1 % 0-0 H (CELLAVISION)(BEAKER) (test code = 2829) NEUTROPHILS - ABS 7.15 K/ul 1.56-6.13 H (CELLAVISION)(BEAKER) (test code = 2830) LYMPHOCYTES - ABS 4.82 K/ul 1.18-3.74 H (CELLAVISION)(BEAKER) (test code = 2831) MONOCYTES - ABS 1.61 K/uL 0.24-0.36 H (CELLAVISION)(BEAKER) (test code = 2832) EOSINOPHILS - ABS 0.88 K/uL 0.04-0.36 H (CELLAVISION)(BEAKER) (test code = 2834) ATYPICAL LYMPHOCYTES - ABS 0.15 K/uL 0.00-0.00 H (CELLAVISION)(BEAKER) (test code = 2858) TOTAL COUNTED (BEAKER) (test code 100 = 1351) MANUAL NRBC PER 100 CELLS 4 /100 WBC 0-0 H (BEAKER) (test code = 1353) WBC MORPHOLOGY (BEAKER) (test Normal code = 487) PLT MORPHOLOGY (BEAKER) (test Normal code = 486) POLYCHROMATOPHILLIC RBCS(BEAKER) 2+ moderate (test code = 478) ANISOCYTOSIS (BEAKER) (test code 2+ moderate = 961) TARGET CELLS (BEAKER) (test code 2+ moderate = 480) SICKLE CELLS (BEAKER) (test code 1+ few = 767) ARTIFACT (CELLAVISION)(BEAKER) Present (test code = 3432) PLATELET CONCENTRATION Adequate (CELLAVISION)(BEAKER) (test code = 3438) Received comment: User comments: Slide comments:HEPATIC FUNCTION [id number] 05:37:00 Test Item Value Reference Range Interpretation Comments TOTAL PROTEIN (BEAKER) (test code = 7.9 gm/dL 6.0-8.3 770) ALBUMIN (BEAKER) (test code = 1145) 3.2 g/dL 3.5-5.0 L BILIRUBIN TOTAL (BEAKER) (test code 2.5 mg/dL 0.2-1.2 H = 377) BILIRUBIN DIRECT (BEAKER) (test 1.2 mg/dL 0.1-0.5 H code = 706) ALKALINE PHOSPHATASE (BEAKER) (test 183 U/L 40-150 H code = 346) AST (SGOT) (BEAKER) (test code = 129 U/L 5-34 H 353) ALT (SGPT) (BEAKER) (test code = 72 U/L 6-55 H 347) COMPREHENSIVE METABOLIC [id number] 05:37:00 Test Item Value Reference Range Interpretation Comments TOTAL PROTEIN 7.9 gm/dL 6.0-8.3 (BEAKER) (test code = 770) ALBUMIN (BEAKER) 3.2 g/dL 3.5-5.0 L (test code = 1145) ALKALINE PHOSPHATASE 183 U/L 40-150 H (BEAKER) (test code = 346) BILIRUBIN TOTAL 2.5 mg/dL 0.2-1.2 H (BEAKER) (test code = 377) SODIUM (BEAKER) (test 141 meq/L 136-145 code = 381) POTASSIUM (BEAKER) 3.8 meq/L 3.5-5.1 (test code = 379) CHLORIDE (BEAKER) 104 meq/L 98-107 (test code = 382) CO2 (BEAKER) (test 28 meq/L 22-29 code = 355) BLOOD UREA NITROGEN 12 mg/dL 7-21 (BEAKER) (test code = 354) CREATININE (BEAKER) 0.69 mg/dL 0.57-1.25 (test code = 358) GLUCOSE RANDOM 97 mg/dL 70-105 (BEAKER) (test code = 652) CALCIUM (BEAKER) 8.4 mg/dL 8.4-10.2 (test code = 697) AST (SGOT) (BEAKER) 129 U/L 5-34 H (test code = 353) ALT (SGPT) (BEAKER) 72 U/L 6-55 H (test code = 347) EGFR (BEAKER) (test 115 ESTIMATE D GFR IS code = 1092) mL/min/1.73 sq NOT ACCURA TE m CREATININE CLEARANCE IN PREDICTING GLOMERULAR FILTRATION RATE . ESTIMATED GFR I S NOT APPLICABLE FOR DIALYSIS PATIEN TS. CBC W/PLT COUNT & AUTO [id number] 11:21:00 Test Item Value Reference Range Interpretation Comments WHITE BLOOD CELL COUNT 15.6 K/ L 3.5-10.5 H (BEAKER) (test code = 775) RED BLOOD CELL COUNT 2.42 M/ L 3.93-5.22 L (BEAKER) (test code = 761) HEMOGLOBIN (BEAKER) 7.7 GM/DL 11.2-15.7 L (test code = 410) HEMATOCRIT (BEAKER) 23.7 % 34.1-44.9 L (test code = 411) MEAN CORPUSCULAR VOLUME 97.9 fL 79.4-94.8 H YOANDY ENT HAD TWO (BEAKER) (test code = UNITS [facility] 753) [id number] MEAN CORPUSCULAR 31.8 pg 25.6-32.2 HEMOGLOBIN (BEAKER) (test code = 751) MEAN CORPUSCULAR 32.5 GM/DL 32.2-35.5 HEMOGLOBIN CONC (BEAKER) (test code = 752) RED CELL DISTRIBUTION 21.2 % 11.7-14.4 H WIDTH (BEAKER) (test code = 412) PLATELET COUNT (BEAKER) 263 K/CU MM 150-450 (test code = 756) MEAN PLATELET VOLUME 11.7 fL 9.4-12.3 (BEAKER) (test code = 754) NUCLEATED RED BLOOD 3 /100 WBC 0-0 H CELLS (BEAKER) (test code = 413) (CELLAVISION MANUAL DIFF)2018-09-29 11:21:00 Test Item Value Reference Range Interpretation Comments NEUTROPHILS - REL 42 % (CELLAVISION)(BEAKER) (test code = 2816) LYMPHOCYTES - REL 29 % (CELLAVISION)(BEAKER) (test code = 2817) MONOCYTES - REL 11 % (CELLAVISION)(BEAKER) (test code = 2818) EOSINOPHILS - REL 15 % (CELLAVISION)(BEAKER) (test code = 2819) BANDS - REL (CELLAVISION)(BEAKER) 1 % 0-10 (test code = 2826) ATYPICAL LYMPHOCYTES - REL 1 % 0-0 H (CELLAVISION)(BEAKER) (test code = 2829) NEUTROPHILS - ABS 6.55 K/ul 1.56-6.13 H (CELLAVISION)(BEAKER) (test code = 2830) LYMPHOCYTES - ABS 4.52 K/ul 1.18-3.74 H (CELLAVISION)(BEAKER) (test code = 2831) MONOCYTES - ABS 1.72 K/uL 0.24-0.36 H (CELLAVISION)(BEAKER) (test code = 2832) EOSINOPHILS - ABS 2.34 K/uL 0.04-0.36 H (CELLAVISION)(BEAKER) (test code = 2834) BANDS - ABS (CELLAVISION)(BEAKER) 0.16 K/uL 0.00-0.80 (test code = 2840) ATYPICAL LYMPHOCYTES - ABS 0.16 K/uL 0.00-0.00 H (CELLAVISION)(BEAKER) (test code = 2858) TOTAL COUNTED (BEAKER) (test code 100 = 1351) MANUAL NRBC PER 100 CELLS 3 /100 WBC 0-0 H (BEAKER) (test code = 1353) SMUDGE CELLS (BEAKER) (test code Present = 1371) GIANT PLATELETS (BEAKER) (test Present code = 313) POLYCHROMATOPHILLIC RBCS(BEAKER) 3+ many (test code = 478) ANISOCYTOSIS (BEAKER) (test code 2+ moderate = 961) MACROCYTES (BEAKER) (test code = 2+ moderate 964) SCHISTOCYTES (BEAKER) (test code 1+ few = 765) SICKLE CELLS (BEAKER) (test code 1+ few = 767) MATTHIEU CELLS (BEAKER) (test code = 1+ few 474) PLATELET CONCENTRATION Adequate (CELLAVISION)(BEAKER) (test code = 3438) Received comment: User comments: Slide comments:BASIC METABOLIC [id number] 06:23:00 Test Item Value Reference Range Interpretation Comments SODIUM (BEAKER) 135 meq/L 136-145 L (test code = 381) POTASSIUM (BEAKER) 3.9 meq/L 3.5-5.1 (test code = 379) CHLORIDE (BEAKER) 103 meq/L 98-107 (test code = 382) CO2 (BEAKER) (test 23 meq/L 22-29 code = 355) BLOOD UREA NITROGEN 9 mg/dL 7-21 (BEAKER) (test code = 354) CREATININE (BEAKER) 0.72 mg/dL 0.57-1.25 (test code = 358) GLUCOSE RANDOM 93 mg/dL 70-105 (BEAKER) (test code = 652) CALCIUM (BEAKER) 8.2 mg/dL 8.4-10.2 L (test code = 697) EGFR (BEAKER) (test 109 mL/min/1.73 ESTIM ATED GFR IS code = 1092) sq m NOT ACCURATE CREATININE CLEARANCE IN PREDICTING GLOMERULAR FILTRATION RATE . ESTIMATED GFR I S NOT APPLICABLE FOR DIALYSIS PATIEN TS. Specimen slightly ictericHEPATIC FUNCTION [id number] 06:23:00 Test Item Value Reference Range Interpretation Comments TOTAL PROTEIN (BEAKER) (test code = 8.5 gm/dL 6.0-8.3 H 770) ALBUMIN (BEAKER) (test code = 1145) 3.5 g/dL 3.5-5.0 BILIRUBIN TOTAL (BEAKER) (test code 2.5 mg/dL 0.2-1.2 H = 377) BILIRUBIN DIRECT (BEAKER) (test 1.2 mg/dL 0.1-0.5 H code = 706) ALKALINE PHOSPHATASE (BEAKER) (test 155 U/L 40-150 H code = 346) AST (SGOT) (BEAKER) (test code = 123 U/L 5-34 H 353) ALT (SGPT) (BEAKER) (test code = 69 U/L 6-55 H 347) Specimen slightly ictericBASIC METABOLIC [id number] 08:14:00 Test Item Value Reference Range Interpretation Comments SODIUM (BEAKER) 138 meq/L 136-145 (test code = 381) POTASSIUM (BEAKER) 3.8 meq/L 3.5-5.1 (test code = 379) CHLORIDE (BEAKER) 108 meq/L 98-107 H (test code = 382) CO2 (BEAKER) (test 21 meq/L 22-29 L code = 355) BLOOD UREA NITROGEN 12 mg/dL 7-21 (BEAKER) (test code = 354) CREATININE (BEAKER) 0.79 mg/dL 0.57-1.25 (test code = 358) GLUCOSE RANDOM 114 mg/dL 70-105 H (BEAKER) (test code = 652) CALCIUM (BEAKER) 8.4 mg/dL 8.4-10.2 (test code = 697) EGFR (BEAKER) (test 98 mL/min/1.73 ESTIMA DUNCAN GFR IS code = 1092) sq m NOT ACCURATE CREATININE CLEARANCE IN PREDICTING GLOMERULAR FILTRATION RATE . ESTIMATED GFR I S NOT APPLICABLE FOR DIALYSIS PATIEN TS. Specimen slightly ictericHEPATIC FUNCTION [id number] 08:14:00 Test Item Value Reference Range Interpretation Comments TOTAL PROTEIN (BEAKER) (test code = 8.1 gm/dL 6.0-8.3 770) ALBUMIN (BEAKER) (test code = 1145) 3.2 g/dL 3.5-5.0 L BILIRUBIN TOTAL (BEAKER) (test code 2.5 mg/dL 0.2-1.2 H = 377) BILIRUBIN DIRECT (BEAKER) (test 1.1 mg/dL 0.1-0.5 H code = 706) ALKALINE PHOSPHATASE (BEAKER) (test 152 U/L 40-150 H code = 346) AST (SGOT) (BEAKER) (test code = 118 U/L 5-34 H 353) ALT (SGPT) (BEAKER) (test code = 65 U/L 6-55 H 347) Specimen slightly ictericSpecimen slightly lipemic(CELLAVISION MANUAL DIFF) 2018-09-28 02:39:00 Test Item Value Reference Range Interpretation Comments NEUTROPHILS - REL 52 % (CELLAVISION)(BEAKER) (test code = 2816) LYMPHOCYTES - REL 26 % (CELLAVISION)(BEAKER) (test code = 2817) MONOCYTES - REL 8 % (CELLAVISION)(BEAKER) (test code = 2818) EOSINOPHILS - REL 12 % (CELLAVISION)(BEAKER) (test code = 2819) BASOPHILS - REL 2 % (CELLAVISION)(BEAKER) (test code = 2820) NEUTROPHILS - ABS 8.37 K/ul 1.56-6.13 H (CELLAVISION)(BEAKER) (test code = 2830) LYMPHOCYTES - ABS 4.19 K/ul 1.18-3.74 H (CELLAVISION)(BEAKER) (test code = 2831) MONOCYTES - ABS 1.29 K/uL 0.24-0.36 H (CELLAVISION)(BEAKER) (test code = 2832) EOSINOPHILS - ABS 1.93 K/uL 0.04-0.36 H (CELLAVISION)(BEAKER) (test code = 2834) BASOPHILS - ABS 0.32 K/uL 0.01-0.08 H (CELLAVISION)(BEAKER) (test code = 2835) TOTAL COUNTED (BEAKER) (test code 100 = 1351) MANUAL NRBC PER 100 CELLS 11 /100 WBC 0-0 H (BEAKER) (test code = 1353) SMUDGE CELLS (BEAKER) (test code Present = 1371) GIANT PLATELETS (BEAKER) (test Present code = 313) POLYCHROMATOPHILLIC RBCS(BEAKER) 3+ many (test code = 478) ANISOCYTOSIS (BEAKER) (test code 3+ many = 961) MACROCYTES (BEAKER) (test code = 3+ many 964) POIKILOCYTES (BEAKER) (test code 2+ moderate = 966) TARGET CELLS (BEAKER) (test code 2+ moderate = 480) SCHISTOCYTES (BEAKER) (test code 1+ few = 765) SICKLE CELLS (BEAKER) (test code 1+ few = 767) ELLIPTOCYTES (BEAKER) (test code 1+ few = 962) STOMATOCYTES (BEAKER) (test code 2+ moderate = 479) MATTHEWS-JOLLY BODIES (BEAKER) 1+ few (test code = 475) PLATELET CONCENTRATION Adequate (CELLAVISION)(BEAKER) (test code = 3438) Received comment: User comments: Slide comments:CBC W/PLT COUNT & AUTO [id number] 02:38:00 Test Item Value Reference Range Interpretation Comments WHITE BLOOD CELL COUNT (BEAKER) 16.1 K/ L 3.5-10.5 H (test code = 775) RED BLOOD CELL COUNT (BEAKER) 1.44 M/ L 3.93-5.22 L (test code = 761) HEMOGLOBIN (BEAKER) (test code = 5.0 GM/DL 11.2-15.7 LL 410) HEMATOCRIT (BEAKER) (test code = 15.7 % 34.1-44.9 L 411) MEAN CORPUSCULAR VOLUME (BEAKER) 109.0 fL 79.4-94.8 H (test code = 753) MEAN CORPUSCULAR HEMOGLOBIN 34.7 pg 25.6-32.2 H (BEAKER) (test code = 751) MEAN CORPUSCULAR HEMOGLOBIN CONC 31.8 GM/DL 32.2-35.5 L (BEAKER) (test code = 752) RED CELL DISTRIBUTION WIDTH 23.2 % 11.7-14.4 H (BEAKER) (test code = 412) PLATELET COUNT (BEAKER) (test 220 K/CU MM 150-450 code = 756) MEAN PLATELET VOLUME (BEAKER) 11.2 fL 9.4-12.3 (test code = 754) NUCLEATED RED BLOOD CELLS 9 /100 WBC 0-0 H (BEAKER) (test code = 413) CBC W/PLT COUNT & AUTO [id number] 12:02:00 Test Item Value Reference Range Interpretation Comments WHITE BLOOD CELL COUNT (BEAKER) 14.3 K/ L 3.5-10.5 H (test code = 775) RED BLOOD CELL COUNT (BEAKER) 2.54 M/ L 3.93-5.22 L (test code = 761) HEMOGLOBIN (BEAKER) (test code = 7.3 GM/DL 11.2-15.7 L 410) HEMATOCRIT (BEAKER) (test code = 23.4 % 34.1-44.9 L 411) MEAN CORPUSCULAR VOLUME (BEAKER) 92.1 fL 79.4-94.8 (test code = 753) MEAN CORPUSCULAR HEMOGLOBIN 28.7 pg 25.6-32.2 (BEAKER) (test code = 751) MEAN CORPUSCULAR HEMOGLOBIN CONC 31.2 GM/DL 32.2-35.5 L (BEAKER) (test code = 752) RED CELL DISTRIBUTION WIDTH 21.4 % 11.7-14.4 H (BEAKER) (test code = 412) PLATELET COUNT (BEAKER) (test 239 K/CU MM 150-450 code = 756) MEAN PLATELET VOLUME (BEAKER) 11.0 fL 9.4-12.3 (test code = 754) NUCLEATED RED BLOOD CELLS 4 /100 WBC 0-0 H (BEAKER) (test code = 413) (CELLAVISION MANUAL DIFF)2018-02-08 12:02:00 Test Item Value Reference Range Interpretation Comments NEUTROPHILS - REL 66 % (CELLAVISION)(BEAKER) (test code = 2816) LYMPHOCYTES - REL 22 % (CELLAVISION)(BEAKER) (test code = 2817) MONOCYTES - REL 8 % (CELLAVISION)(BEAKER) (test code = 2818) EOSINOPHILS - REL 3 % (CELLAVISION)(BEAKER) (test code = 2819) NEUTROPHILS - ABS 9.44 K/ul 1.56-6.13 H (CELLAVISION)(BEAKER) (test code = 2830) LYMPHOCYTES - ABS 3.15 K/ul 1.18-3.74 (CELLAVISION)(BEAKER) (test code = 2831) MONOCYTES - ABS 1.14 K/uL 0.24-0.36 H (CELLAVISION)(BEAKER) (test code = 2832) EOSINOPHILS - ABS 0.43 K/uL 0.04-0.36 H (CELLAVISION)(BEAKER) (test code = 2834) TOTAL COUNTED (BEAKER) (test code 100 = 1351) MANUAL NRBC PER 100 CELLS 5 /100 WBC 0-0 H (BEAKER) (test code = 1353) WBC MORPHOLOGY (BEAKER) (test Normal code = 487) PLT MORPHOLOGY (BEAKER) (test Normal code = 486) ANISOCYTOSIS (BEAKER) (test code 2+ moderate = 961) MACROCYTES (BEAKER) (test code = 1+ few 964) TARGET CELLS (BEAKER) (test code 1+ few = 480) SICKLE CELLS (BEAKER) (test code 1+ few = 767) MATTHEWS-JOLLY BODIES (BEAKER) 1+ few (test code = 475) ARTIFACT (CELLAVISION)(BEAKER) Present (test code = 3432) PLATELET CONCENTRATION Adequate (CELLAVISION)(BEAKER) (test code = 3438) Received comment: User comments: Slide comments:BASIC METABOLIC [id number] 06:09:00 Test Item Value Reference Range Interpretation Comments SODIUM (BEAKER) 138 meq/L 136-145 (test code = 381) POTASSIUM (BEAKER) 5.9 meq/L 3.5-5.1 H (test code = 379) CHLORIDE (BEAKER) 102 meq/L 98-107 (test code = 382) CO2 (BEAKER) (test 30 meq/L 22-29 H code = 355) BLOOD UREA NITROGEN 15 mg/dL 7-21 (BEAKER) (test code = 354) CREATININE (BEAKER) 0.68 mg/dL 0.57-1.25 (test code = 358) GLUCOSE RANDOM 87 mg/dL 70-105 (BEAKER) (test code = 652) CALCIUM (BEAKER) 9.6 mg/dL 8.4-10.2 (test code = 697) EGFR (BEAKER) (test 117 mL/min/1.73 ESTIM ATED GFR IS code = 1092) sq m NOT ACCURATE CREATININE CLEARANCE IN PREDICTING GLOMERULAR FILTRATION RATE . ESTIMATED GFR I S NOT APPLICABLE FOR DIALYSIS PATIEN TS. (CELLAVISION MANUAL DIFF)2018-02-07 13:34:00 Test Item Value Reference Range Interpretation Comments NEUTROPHILS - REL 68 % (CELLAVISION)(BEAKER) (test code = 2816) LYMPHOCYTES - REL 24 % (CELLAVISION)(BEAKER) (test code = 2817) MONOCYTES - REL 7 % (CELLAVISION)(BEAKER) (test code = 2818) EOSINOPHILS - REL 1 % (CELLAVISION)(BEAKER) (test code = 2819) NEUTROPHILS - ABS 9.66 K/ul 1.56-6.13 H (CELLAVISION)(BEAKER) (test code = 2830) LYMPHOCYTES - ABS 3.41 K/ul 1.18-3.74 (CELLAVISION)(BEAKER) (test code = 2831) MONOCYTES - ABS 0.99 K/uL 0.24-0.36 H (CELLAVISION)(BEAKER) (test code = 2832) EOSINOPHILS - ABS 0.14 K/uL 0.04-0.36 (CELLAVISION)(BEAKER) (test code = 2834) TOTAL COUNTED (BEAKER) (test code 100 = 1351) MANUAL NRBC PER 100 CELLS 15 /100 WBC 0-0 H (BEAKER) (test code = 1353) WBC MORPHOLOGY (BEAKER) (test Normal code = 487) LARGE PLT(BEAKER) (test code = Present 2156) POLYCHROMATOPHILLIC RBCS(BEAKER) 2+ moderate (test code = 478) HYPOCHROMIA (BEAKER) (test code = 1+ few 963) TARGET CELLS (BEAKER) (test code 2+ moderate = 480) SICKLE CELLS (BEAKER) (test code 1+ few = 767) MATTHEWS-JOLLY BODIES (BEAKER) 1+ few (test code = 475) ARTIFACT (CELLAVISION)(BEAKER) Present (test code = 3432) PLATELET CONCENTRATION Adequate (CELLAVISION)(BEAKER) (test code = 3438) Received comment: User comments: Slide comments:CBC W/PLT COUNT & AUTO [id number] 13:33:00 Test Item Value Reference Range Interpretation Comments WHITE BLOOD CELL COUNT (BEAKER) 14.2 K/ L 3.5-10.5 H (test code = 775) RED BLOOD CELL COUNT (BEAKER) 2.68 M/ L 3.93-5.22 L (test code = 761) HEMOGLOBIN (BEAKER) (test code = 7.7 GM/DL 11.2-15.7 L 410) HEMATOCRIT (BEAKER) (test code = 24.5 % 34.1-44.9 L 411) MEAN CORPUSCULAR VOLUME (BEAKER) 91.4 fL 79.4-94.8 (test code = 753) MEAN CORPUSCULAR HEMOGLOBIN 28.7 pg 25.6-32.2 (BEAKER) (test code = 751) MEAN CORPUSCULAR HEMOGLOBIN CONC 31.4 GM/DL 32.2-35.5 L (BEAKER) (test code = 752) RED CELL DISTRIBUTION WIDTH 21.2 % 11.7-14.4 H (BEAKER) (test code = 412) PLATELET COUNT (BEAKER) (test 257 K/CU MM 150-450 code = 756) MEAN PLATELET VOLUME (BEAKER) 11.4 fL 9.4-12.3 (test code = 754) NUCLEATED RED BLOOD CELLS 6 /100 WBC 0-0 H (BEAKER) (test code = 413) BASIC METABOLIC [id number] 07:19:00 Test Item Value Reference Range Interpretation Comments SODIUM (BEAKER) 138 meq/L 136-145 (test code = 381) POTASSIUM (BEAKER) 5.3 meq/L 3.5-5.1 H (test code = 379) CHLORIDE (BEAKER) 98 meq/L 98-107 (test code = 382) CO2 (BEAKER) (test 34 meq/L 22-29 H code = 355) BLOOD UREA NITROGEN 16 mg/dL 7-21 (BEAKER) (test code = 354) CREATININE (BEAKER) 0.66 mg/dL 0.57-1.25 (test code = 358) GLUCOSE RANDOM 90 mg/dL 70-105 (BEAKER) (test code = 652) CALCIUM (BEAKER) 9.8 mg/dL 8.4-10.2 (test code = 697) EGFR (BEAKER) (test 121 mL/min/1.73 ESTIM ATED GFR IS code = 1092) sq m NOT ACCURATE CREATININE CLEARANCE IN PREDICTING GLOMERULAR FILTRATION RATE . ESTIMATED GFR I S NOT APPLICABLE FOR DIALYSIS PATIEN TS. CBC W/PLT COUNT & AUTO [id number] 14:36:00 Test Item Value Reference Range Interpretation Comments WHITE BLOOD CELL COUNT (BEAKER) 12.9 K/ L 3.5-10.5 H (test code = 775) RED BLOOD CELL COUNT (BEAKER) 2.54 M/ L 3.93-5.22 L (test code = 761) HEMOGLOBIN (BEAKER) (test code = 7.4 GM/DL 11.2-15.7 L 410) HEMATOCRIT (BEAKER) (test code = 22.9 % 34.1-44.9 L 411) MEAN CORPUSCULAR VOLUME (BEAKER) 90.2 fL 79.4-94.8 (test code = 753) MEAN CORPUSCULAR HEMOGLOBIN 29.1 pg 25.6-32.2 (BEAKER) (test code = 751) MEAN CORPUSCULAR HEMOGLOBIN CONC 32.3 GM/DL 32.2-35.5 (BEAKER) (test code = 752) RED CELL DISTRIBUTION WIDTH 21.2 % 11.7-14.4 H (BEAKER) (test code = 412) PLATELET COUNT (BEAKER) (test 251 K/CU MM 150-450 code = 756) MEAN PLATELET VOLUME (BEAKER) 10.8 fL 9.4-12.3 (test code = 754) NUCLEATED RED BLOOD CELLS 7 /100 WBC 0-0 H (BEAKER) (test code = 413) (MANUAL DIFFERENTIAL)2018-02-06 14:36:00 Test Item Value Reference Range Interpretation Comments NEUTROPHILS - REL (DIFF) (BEAKER) 64 % (test code = 1359) LYMPHOCYTES - REL (DIFF) (BEAKER) 22 % (test code = 1360) MONOCYTES - REL (DIFF) (BEAKER) 8 % (test code = 1361) EOSINOPHILS - REL (DIFF) (BEAKER) 6 % (test code = 1362) BASOPHILS - REL (DIFF) (BEAKER) 0 % (test code = 1363) NEUTROPHILS - ABS (DIFF) (BEAKER) 8.26 K/ L 1.80-8.00 H (test code = 1365) LYMPHOCYTES - ABS (DIFF) (BEAKER) 2.84 K/ L 1.48-4.50 (test code = 1366) MONOCYTES - ABS (DIFF) (BEAKER) 1.03 K/ L 0.00-1.30 (test code = 1367) EOSINOPHILS - ABS (DIFF) (BEAKER) 0.77 K/ L 0.00-0.50 H (test code = 1368) BASOPHILS - ABS (DIFF) (BEAKER) 0.00 K/ L 0.00-0.20 (test code = 1369) TOTAL COUNTED (BEAKER) (test code 100 = 1351) MANUAL NRBC PER 100 CELLS 8 /100 WBC 0-0 H (BEAKER) (test code = 1353) WBC MORPHOLOGY (BEAKER) (test Normal code = 487) PLT MORPHOLOGY (BEAKER) (test Normal code = 486) ANISOCYTOSIS (BEAKER) (test code 2+ moderate = 961) SICKLE CELLS (BEAKER) (test code 2+ moderate = 767) BASIC METABOLIC [id number] 06:59:00 Test Item Value Reference Range Interpretation Comments SODIUM (BEAKER) 139 meq/L 136-145 (test code = 381) POTASSIUM (BEAKER) 4.9 meq/L 3.5-5.1 (test code = 379) CHLORIDE (BEAKER) 100 meq/L 98-107 (test code = 382) CO2 (BEAKER) (test 34 meq/L 22-29 H code = 355) BLOOD UREA NITROGEN 18 mg/dL 7-21 (BEAKER) (test code = 354) CREATININE (BEAKER) 0.70 mg/dL 0.57-1.25 (test code = 358) GLUCOSE RANDOM 102 mg/dL 70-105 (BEAKER) (test code = 652) CALCIUM (BEAKER) 9.8 mg/dL 8.4-10.2 (test code = 697) EGFR (BEAKER) (test 114 mL/min/1.73 ESTIM ATED GFR IS code = 1092) sq m NOT ACCURATE CREATININE CLEARANCE IN PREDICTING GLOMERULAR FILTRATION RATE . ESTIMATED GFR I S NOT APPLICABLE FOR DIALYSIS PATIEN TS. CBC W/PLT COUNT & AUTO [id number] 12:27:00 Test Item Value Reference Range Interpretation Comments WHITE BLOOD CELL COUNT (BEAKER) 14.2 K/ L 3.5-10.5 H (test code = 775) RED BLOOD CELL COUNT (BEAKER) 2.55 M/ L 3.93-5.22 L (test code = 761) HEMOGLOBIN (BEAKER) (test code = 7.2 GM/DL 11.2-15.7 L 410) HEMATOCRIT (BEAKER) (test code = 22.9 % 34.1-44.9 L 411) MEAN CORPUSCULAR VOLUME (BEAKER) 89.8 fL 79.4-94.8 (test code = 753) MEAN CORPUSCULAR HEMOGLOBIN 28.2 pg 25.6-32.2 (BEAKER) (test code = 751) MEAN CORPUSCULAR HEMOGLOBIN CONC 31.4 GM/DL 32.2-35.5 L (BEAKER) (test code = 752) RED CELL DISTRIBUTION WIDTH 20.7 % 11.7-14.4 H (BEAKER) (test code = 412) PLATELET COUNT (BEAKER) (test 261 K/CU MM 150-450 code = 756) MEAN PLATELET VOLUME (BEAKER) 10.7 fL 9.4-12.3 (test code = 754) NUCLEATED RED BLOOD CELLS 5 /100 WBC 0-0 H (BEAKER) (test code = 413) (CELLAVISION MANUAL DIFF)2018-02-05 12:27:00 Test Item Value Reference Range Interpretation Comments NEUTROPHILS - REL 67 % (CELLAVISION)(BEAKER) (test code = 2816) LYMPHOCYTES - REL 17 % (CELLAVISION)(BEAKER) (test code = 2817) MONOCYTES - REL 6 % (CELLAVISION)(BEAKER) (test code = 2818) EOSINOPHILS - REL 4 % (CELLAVISION)(BEAKER) (test code = 2819) PROMYELOCYTES - REL 5 % 0-0 H (CELLAVSION)(BEAKER) (test code = 2825) ATYPICAL LYMPHOCYTES - REL 1 % 0-0 H (CELLAVISION)(BEAKER) (test code = 2829) NEUTROPHILS - ABS 9.51 K/ul 1.56-6.13 H (CELLAVISION)(BEAKER) (test code = 2830) LYMPHOCYTES - ABS 2.41 K/ul 1.18-3.74 (CELLAVISION)(BEAKER) (test code = 2831) MONOCYTES - ABS 0.85 K/uL 0.24-0.36 H (CELLAVISION)(BEAKER) (test code = 2832) EOSINOPHILS - ABS 0.57 K/uL 0.04-0.36 H (CELLAVISION)(BEAKER) (test code = 2834) PROMYELOCYTES - ABS 0.71 K/uL 0.00-0.00 H (CELLAVISION)(BEAKER) (test code = 2838) ATYPICAL LYMPHOCYTES - ABS 0.14 K/uL 0.00-0.00 H (CELLAVISION)(BEAKER) (test code = 2858) TOTAL COUNTED (BEAKER) (test code 100 = 1351) MANUAL NRBC PER 100 CELLS 9 /100 WBC 0-0 H (BEAKER) (test code = 1353) WBC MORPHOLOGY (BEAKER) (test Normal code = 487) LARGE PLT(BEAKER) (test code = Present 2156) POLYCHROMATOPHILLIC RBCS(BEAKER) 2+ moderate (test code = 478) HYPOCHROMIA (BEAKER) (test code = 1+ few 963) TARGET CELLS (BEAKER) (test code 2+ moderate = 480) SICKLE CELLS (BEAKER) (test code 2+ moderate = 767) ARTIFACT (CELLAVISION)(BEAKER) Present (test code = 3432) PLATELET CONCENTRATION Adequate (CELLAVISION)(BEAKER) (test code = 3438) Received comment: User comments: Slide comments:BASIC METABOLIC [id number] 07:44:00 Test Item Value Reference Range Interpretation Comments SODIUM (BEAKER) 139 meq/L 136-145 (test code = 381) POTASSIUM (BEAKER) 4.7 meq/L 3.5-5.1 (test code = 379) CHLORIDE (BEAKER) 100 meq/L 98-107 (test code = 382) CO2 (BEAKER) (test 31 meq/L 22-29 H code = 355) BLOOD UREA NITROGEN 14 mg/dL 7-21 (BEAKER) (test code = 354) CREATININE (BEAKER) 0.69 mg/dL 0.57-1.25 (test code = 358) GLUCOSE RANDOM 92 mg/dL 70-105 (BEAKER) (test code = 652) CALCIUM (BEAKER) 9.8 mg/dL 8.4-10.2 (test code = 697) EGFR (BEAKER) (test 115 mL/min/1.73 ESTIM ATED GFR IS code = 1092) sq m NOT ACCURATE CREATININE CLEARANCE IN PREDICTING GLOMERULAR FILTRATION RATE . ESTIMATED GFR I S NOT APPLICABLE FOR DIALYSIS PATIEN TS. CBC W/PLT COUNT & AUTO [id number] 13:29:00 Test Item Value Reference Range Interpretation Comments WHITE BLOOD CELL COUNT (BEAKER) 17.1 K/ L 3.5-10.5 H (test code = 775) RED BLOOD CELL COUNT (BEAKER) 2.68 M/ L 3.93-5.22 L (test code = 761) HEMOGLOBIN (BEAKER) (test code = 7.6 GM/DL 11.2-15.7 L 410) HEMATOCRIT (BEAKER) (test code = 23.3 % 34.1-44.9 L 411) MEAN CORPUSCULAR VOLUME (BEAKER) 86.9 fL 79.4-94.8 (test code = 753) MEAN CORPUSCULAR HEMOGLOBIN 28.4 pg 25.6-32.2 (BEAKER) (test code = 751) MEAN CORPUSCULAR HEMOGLOBIN CONC 32.6 GM/DL 32.2-35.5 (BEAKER) (test code = 752) RED CELL DISTRIBUTION WIDTH 20.0 % 11.7-14.4 H (BEAKER) (test code = 412) PLATELET COUNT (BEAKER) (test 252 K/CU MM 150-450 code = 756) MEAN PLATELET VOLUME (BEAKER) 10.9 fL 9.4-12.3 (test code = 754) NUCLEATED RED BLOOD CELLS 4 /100 WBC 0-0 H (BEAKER) (test code = 413) (CELLAVISION MANUAL DIFF)2018-02-04 13:29:00 Test Item Value Reference Range Interpretation Comments NEUTROPHILS - REL 61 % (CELLAVISION)(BEAKER) (test code = 2816) LYMPHOCYTES - REL 29 % (CELLAVISION)(BEAKER) (test code = 2817) MONOCYTES - REL 7 % (CELLAVISION)(BEAKER) (test code = 2818) EOSINOPHILS - REL 1 % (CELLAVISION)(BEAKER) (test code = 2819) BANDS - REL (CELLAVISION)(BEAKER) 2 % 0-10 (test code = 2826) NEUTROPHILS - ABS 10.43 K/ul 1.56-6.13 H (CELLAVISION)(BEAKER) (test code = 2830) LYMPHOCYTES - ABS 4.96 K/ul 1.18-3.74 H (CELLAVISION)(BEAKER) (test code = 2831) MONOCYTES - ABS 1.20 K/uL 0.24-0.36 H (CELLAVISION)(BEAKER) (test code = 2832) EOSINOPHILS - ABS 0.17 K/uL 0.04-0.36 (CELLAVISION)(BEAKER) (test code = 2834) BANDS - ABS (CELLAVISION)(BEAKER) 0.34 K/uL 0.00-0.80 (test code = 2840) TOTAL COUNTED (BEAKER) (test code 100 = 1351) MANUAL NRBC PER 100 CELLS 3 /100 WBC 0-0 H (BEAKER) (test code = 1353) SMUDGE CELLS (BEAKER) (test code Present = 1371) GIANT PLATELETS (BEAKER) (test Present code = 313) POLYCHROMATOPHILLIC RBCS(BEAKER) 3+ many (test code = 478) ANISOCYTOSIS (BEAKER) (test code 2+ moderate = 961) MICROCYTES (BEAKER) (test code = 1+ few 965) POIKILOCYTES (BEAKER) (test code 2+ moderate = 966) TARGET CELLS (BEAKER) (test code 2+ moderate = 480) SICKLE CELLS (BEAKER) (test code 2+ moderate = 767) ARTIFACT (CELLAVISION)(BEAKER) Present (test code = 3432) HELMET CELLS 1+ few (CELLAVISION)(BEAKER) (test code = 3434) PLATELET CONCENTRATION Adequate (CELLAVISION)(BEAKER) (test code = 3438) Received comment: User comments: Slide comments:BASIC METABOLIC [id number] 05:38:00 Test Item Value Reference Range Interpretation Comments SODIUM (BEAKER) 140 meq/L 136-145 (test code = 381) POTASSIUM (BEAKER) 4.6 meq/L 3.5-5.1 (test code = 379) CHLORIDE (BEAKER) 104 meq/L 98-107 (test code = 382) CO2 (BEAKER) (test 28 meq/L 22-29 code = 355) BLOOD UREA NITROGEN 18 mg/dL 7-21 (BEAKER) (test code = 354) CREATININE (BEAKER) 0.66 mg/dL 0.57-1.25 (test code = 358) GLUCOSE RANDOM 100 mg/dL 70-105 (BEAKER) (test code = 652) CALCIUM (BEAKER) 9.5 mg/dL 8.4-10.2 (test code = 697) EGFR (BEAKER) (test 121 mL/min/1.73 ESTIM ATED GFR IS code = 1092) sq m NOT ACCURATE CREATININE CLEARANCE IN PREDICTING GLOMERULAR FILTRATION RATE . ESTIMATED GFR I S NOT APPLICABLE FOR DIALYSIS PATIEN TS. CBC W/PLT COUNT & AUTO [id number] 14:02:00 Test Item Value Reference Range Interpretation Comments WHITE BLOOD CELL COUNT (BEAKER) 20.8 K/ L 3.5-10.5 H (test code = 775) RED BLOOD CELL COUNT (BEAKER) 1.97 M/ L 3.93-5.22 L (test code = 761) HEMOGLOBIN (BEAKER) (test code = 5.9 GM/DL 11.2-15.7 LL 410) HEMATOCRIT (BEAKER) (test code = 17.6 % 34.1-44.9 L 411) MEAN CORPUSCULAR VOLUME (BEAKER) 89.3 fL 79.4-94.8 (test code = 753) MEAN CORPUSCULAR HEMOGLOBIN 29.9 pg 25.6-32.2 (BEAKER) (test code = 751) MEAN CORPUSCULAR HEMOGLOBIN CONC 33.5 GM/DL 32.2-35.5 (BEAKER) (test code = 752) RED CELL DISTRIBUTION WIDTH 21.8 % 11.7-14.4 H (BEAKER) (test code = 412) PLATELET COUNT (BEAKER) (test 290 K/CU MM 150-450 code = 756) MEAN PLATELET VOLUME (BEAKER) 10.7 fL 9.4-12.3 (test code = 754) NUCLEATED RED BLOOD CELLS 5 /100 WBC 0-0 H (BEAKER) (test code = 413) NEUTROPHILS RELATIVE PERCENT 66 % (BEAKER) (test code = 429) LYMPHOCYTES RELATIVE PERCENT 23 % (BEAKER) (test code = 430) MONOCYTES RELATIVE PERCENT 10 % (BEAKER) (test code = 431) EOSINOPHILS RELATIVE PERCENT 1 % (BEAKER) (test code = 432) BASOPHILS RELATIVE PERCENT 0 % (BEAKER) (test code = 437) NEUTROPHILS ABSOLUTE COUNT 13.73 K/ L 1.56-6.13 H (BEAKER) (test code = 670) LYMPHOCYTES ABSOLUTE COUNT 4.72 K/ L 1.18-3.74 H (BEAKER) (test code = 414) MONOCYTES ABSOLUTE COUNT (BEAKER) 2.06 K/ L 0.24-0.36 H (test code = 415) EOSINOPHILS ABSOLUTE COUNT 0.20 K/ L 0.04-0.36 (BEAKER) (test code = 416) BASOPHILS ABSOLUTE COUNT (BEAKER) 0.03 K/ L 0.01-0.08 (test code = 417) IMMATURE GRANULOCYTES-RELATIVE 1 % 0-1 PERCENT (BEAKER) (test code = 2801) (CELLAVISION MANUAL DIFF)2018-02-03 14:02:00 Test Item Value Reference Range Interpretation Comments TOTAL COUNTED (BEAKER) (test code = 1351) WBC MORPHOLOGY (BEAKER) (test Normal code = 487) PLT MORPHOLOGY (BEAKER) (test Normal code = 486) POLYCHROMATOPHILLIC RBCS(BEAKER) 2+ moderate (test code = 478) ANISOCYTOSIS (BEAKER) (test code 2+ moderate = 961) TARGET CELLS (BEAKER) (test code 2+ moderate = 480) SICKLE CELLS (BEAKER) (test code 2+ moderate = 767) BASIC METABOLIC [id number] 07:22:00 Test Item Value Reference Range Interpretation Comments SODIUM (BEAKER) 140 meq/L 136-145 (test code = 381) POTASSIUM (BEAKER) 4.9 meq/L 3.5-5.1 (test code = 379) CHLORIDE (BEAKER) 105 meq/L 98-107 (test code = 382) CO2 (BEAKER) (test 29 meq/L 22-29 code = 355) BLOOD UREA NITROGEN 20 mg/dL 7-21 (BEAKER) (test code = 354) CREATININE (BEAKER) 0.72 mg/dL 0.57-1.25 (test code = 358) GLUCOSE RANDOM 100 mg/dL 70-105 (BEAKER) (test code = 652) CALCIUM (BEAKER) 9.4 mg/dL 8.4-10.2 (test code = 697) EGFR (BEAKER) (test 110 mL/min/1.73 ESTIM ATED GFR IS code = 1092) sq m NOT ACCURATE CREATININE CLEARANCE IN PREDICTING GLOMERULAR FILTRATION RATE . ESTIMATED GFR I S NOT APPLICABLE FOR DIALYSIS PATIEN TS. Specimen slightly ictericCBC W/PLT COUNT & AUTO [id number] 06:46:00 Test Item Value Reference Range Interpretation Comments WHITE BLOOD CELL COUNT (BEAKER) 17.0 K/ L 3.5-10.5 H (test code = 775) RED BLOOD CELL COUNT (BEAKER) 2.18 M/ L 3.93-5.22 L (test code = 761) HEMOGLOBIN (BEAKER) (test code = 6.4 GM/DL 11.2-15.7 L 410) HEMATOCRIT (BEAKER) (test code = 20.3 % 34.1-44.9 L 411) MEAN CORPUSCULAR VOLUME (BEAKER) 93.1 fL 79.4-94.8 (test code = 753) MEAN CORPUSCULAR HEMOGLOBIN 29.4 pg 25.6-32.2 (BEAKER) (test code = 751) MEAN CORPUSCULAR HEMOGLOBIN CONC 31.5 GM/DL 32.2-35.5 L (BEAKER) (test code = 752) RED CELL DISTRIBUTION WIDTH 24.0 % 11.7-14.4 H (BEAKER) (test code = 412) PLATELET COUNT (BEAKER) (test 274 K/CU MM 150-450 code = 756) MEAN PLATELET VOLUME (BEAKER) 10.9 fL 9.4-12.3 (test code = 754) NUCLEATED RED BLOOD CELLS 13 /100 WBC 0-0 H (BEAKER) (test code = 413) (CELLAVISION MANUAL DIFF)2018-02-02 06:46:00 Test Item Value Reference Range Interpretation Comments NEUTROPHILS - REL 72 % (CELLAVISION)(BEAKER) (test code = 2816) LYMPHOCYTES - REL 20 % (CELLAVISION)(BEAKER) (test code = 2817) MONOCYTES - REL 6 % (CELLAVISION)(BEAKER) (test code = 2818) EOSINOPHILS - REL 1 % (CELLAVISION)(BEAKER) (test code = 2819) BANDS - REL (CELLAVISION)(BEAKER) 1 % 0-10 (test code = 2826) NEUTROPHILS - ABS 12.24 K/ul 1.56-6.13 H (CELLAVISION)(BEAKER) (test code = 2830) LYMPHOCYTES - ABS 3.40 K/ul 1.18-3.74 (CELLAVISION)(BEAKER) (test code = 2831) MONOCYTES - ABS 1.02 K/uL 0.24-0.36 H (CELLAVISION)(BEAKER) (test code = 2832) EOSINOPHILS - ABS 0.17 K/uL 0.04-0.36 (CELLAVISION)(BEAKER) (test code = 2834) BANDS - ABS (CELLAVISION)(BEAKER) 0.17 K/uL 0.00-0.80 (test code = 2840) TOTAL COUNTED (BEAKER) (test code 100 = 1351) MANUAL NRBC PER 100 CELLS 30 /100 WBC 0-0 H (BEAKER) (test code = 1353) WBC MORPHOLOGY (BEAKER) (test Normal code = 487) PLT MORPHOLOGY (BEAKER) (test Normal code = 486) POLYCHROMATOPHILLIC RBCS(BEAKER) 3+ many (test code = 478) ANISOCYTOSIS (BEAKER) (test code 2+ moderate = 961) MACROCYTES (BEAKER) (test code = 2+ moderate 964) TARGET CELLS (BEAKER) (test code 1+ few = 480) SICKLE CELLS (BEAKER) (test code 1+ few = 767) ARTIFACT (CELLAVISION)(BEAKER) Present (test code = 3432) PLATELET CONCENTRATION Adequate (CELLAVISION)(BEAKER) (test code = 3438) Received comment: User comments: Slide comments:BASIC METABOLIC [id number] 06:15:00 Test Item Value Reference Range Interpretation Comments SODIUM (BEAKER) 139 meq/L 136-145 (test code = 381) POTASSIUM (BEAKER) 4.7 meq/L 3.5-5.1 (test code = 379) CHLORIDE (BEAKER) 105 meq/L 98-107 (test code = 382) CO2 (BEAKER) (test 26 meq/L 22-29 code = 355) BLOOD UREA NITROGEN 10 mg/dL 7-21 (BEAKER) (test code = 354) CREATININE (BEAKER) 0.67 mg/dL 0.57-1.25 (test code = 358) GLUCOSE RANDOM 91 mg/dL 70-105 (BEAKER) (test code = 652) CALCIUM (BEAKER) 9.3 mg/dL 8.4-10.2 (test code = 697) EGFR (BEAKER) (test 119 mL/min/1.73 ESTIM ATED GFR IS code = 1092) sq m NOT ACCURATE CREATININE CLEARANCE IN PREDICTING GLOMERULAR FILTRATION RATE . ESTIMATED GFR I S NOT APPLICABLE FOR DIALYSIS PATIEN TS. URINALYSIS W/ [id number] 20:17:00 Test Item Value Reference Range Interpretation Comments COLOR (BEAKER) (test code = Yellow 470) CLARITY (BEAKER) (test code = Hazy 469) SPECIFIC GRAVITY UA (BEAKER) 1.009 1.001-1.035 (test code = 468) PH UA (BEAKER) (test code = 5.5 5.0-8.0 467) PROTEIN UA (BEAKER) (test code 20 mg/dL Negative A = 464) GLUCOSE UA (BEAKER) (test code Negative Negative = 365) KETONES UA (BEAKER) (test code Negative Negative = 371) BILIRUBIN UA (BEAKER) (test Negative Negative code = 462) BLOOD UA (BEAKER) (test code = Small Negative A 461) NITRITE UA (BEAKER) (test code Negative Negative = 465) LEUKOCYTE ESTERASE UA (BEAKER) Small Negative A (test code = 466) UROBILINOGEN UA (BEAKER) (test 0.2 mg/dL 0.2-1.0 code = 463) RBC UA (BEAKER) (test code = 1 /HPF 519) WBC UA (BEAKER) (test code = 4 /HPF 520) BACTERIA (BEAKER) (test code = Few 517) MUCUS (BEAKER) (test code = Occasional 1574) SQUAMOUS EPITHELIAL (BEAKER) 8 /HPF (test code = 516) SOURCE(BEAKER) (test code = Urine, Voided 3298) CBC W/PLT COUNT & AUTO [id number] 11:18:00 Test Item Value Reference Range Interpretation Comments WHITE BLOOD CELL COUNT (BEAKER) 16.9 K/ L 3.5-10.5 H (test code = 775) RED BLOOD CELL COUNT (BEAKER) 2.15 M/ L 3.93-5.22 L (test code = 761) HEMOGLOBIN (BEAKER) (test code = 6.5 GM/DL 11.2-15.7 L 410) HEMATOCRIT (BEAKER) (test code = 20.6 % 34.1-44.9 L 411) MEAN CORPUSCULAR VOLUME (BEAKER) 95.8 fL 79.4-94.8 H (test code = 753) MEAN CORPUSCULAR HEMOGLOBIN 30.2 pg 25.6-32.2 (BEAKER) (test code = 751) MEAN CORPUSCULAR HEMOGLOBIN CONC 31.6 GM/DL 32.2-35.5 L (BEAKER) (test code = 752) RED CELL DISTRIBUTION WIDTH 25.6 % 11.7-14.4 H (BEAKER) (test code = 412) PLATELET COUNT (BEAKER) (test 280 K/CU MM 150-450 code = 756) MEAN PLATELET VOLUME (BEAKER) 10.7 fL 9.4-12.3 (test code = 754) NUCLEATED RED BLOOD CELLS 27 /100 WBC 0-0 H (BEAKER) (test code = 413) (CELLAVISION MANUAL DIFF)2018-02-01 11:18:00 Test Item Value Reference Range Interpretation Comments NEUTROPHILS - REL 61 % (CELLAVISION)(BEAKER) (test code = 2816) LYMPHOCYTES - REL 27 % (CELLAVISION)(BEAKER) (test code = 2817) MONOCYTES - REL 8 % (CELLAVISION)(BEAKER) (test code = 2818) EOSINOPHILS - REL 4 % (CELLAVISION)(BEAKER) (test code = 2819) NEUTROPHILS - ABS 10.31 K/ul 1.56-6.13 H (CELLAVISION)(BEAKER) (test code = 2830) LYMPHOCYTES - ABS 4.56 K/ul 1.18-3.74 H (CELLAVISION)(BEAKER) (test code = 2831) MONOCYTES - ABS 1.35 K/uL 0.24-0.36 H (CELLAVISION)(BEAKER) (test code = 2832) EOSINOPHILS - ABS 0.68 K/uL 0.04-0.36 H (CELLAVISION)(BEAKER) (test code = 2834) TOTAL COUNTED (BEAKER) (test code 100 = 1351) MANUAL NRBC PER 100 CELLS 28 /100 WBC 0-0 H (BEAKER) (test code = 1353) WBC MORPHOLOGY (BEAKER) (test Normal code = 487) PLT MORPHOLOGY (BEAKER) (test Normal code = 486) POLYCHROMATOPHILLIC RBCS(BEAKER) 2+ moderate (test code = 478) ANISOCYTOSIS (BEAKER) (test code 2+ moderate = 961) TARGET CELLS (BEAKER) (test code 2+ moderate = 480) SICKLE CELLS (BEAKER) (test code 1+ few = 767) ARTIFACT (CELLAVISION)(BEAKER) Present (test code = 3432) PLATELET CONCENTRATION Adequate (CELLAVISION)(BEAKER) (test code = 3438) Received comment: User comments: Slide comments:BASIC METABOLIC [id number] 06:15:00 Test Item Value Reference Range Interpretation Comments SODIUM (BEAKER) 141 meq/L 136-145 (test code = 381) POTASSIUM (BEAKER) 4.2 meq/L 3.5-5.1 (test code = 379) CHLORIDE (BEAKER) 108 meq/L 98-107 H (test code = 382) CO2 (BEAKER) (test 25 meq/L 22-29 code = 355) BLOOD UREA NITROGEN 11 mg/dL 7-21 (BEAKER) (test code = 354) CREATININE (BEAKER) 0.73 mg/dL 0.57-1.25 (test code = 358) GLUCOSE RANDOM 93 mg/dL 70-105 (BEAKER) (test code = 652) CALCIUM (BEAKER) 9.2 mg/dL 8.4-10.2 (test code = 697) EGFR (BEAKER) (test 108 mL/min/1.73 ESTIM ATED GFR IS code = 1092) sq m NOT ACCURATE CREATININE CLEARANCE IN PREDICTING GLOMERULAR FILTRATION RATE . ESTIMATED GFR I S NOT APPLICABLE FOR DIALYSIS PATIEN TS. CBC W/PLT COUNT & AUTO [id number] 15:02:00 Test Item Value Reference Range Interpretation Comments WHITE BLOOD CELL COUNT (BEAKER) 18.0 K/ L 3.5-10.5 H (test code = 775) RED BLOOD CELL COUNT (BEAKER) 2.31 M/ L 3.93-5.22 L (test code = 761) HEMOGLOBIN (BEAKER) (test code = 7.0 GM/DL 11.2-15.7 L 410) HEMATOCRIT (BEAKER) (test code = 22.4 % 34.1-44.9 L 411) MEAN CORPUSCULAR VOLUME (BEAKER) 97.0 fL 79.4-94.8 H (test code = 753) MEAN CORPUSCULAR HEMOGLOBIN 30.3 pg 25.6-32.2 (BEAKER) (test code = 751) MEAN CORPUSCULAR HEMOGLOBIN CONC 31.3 GM/DL 32.2-35.5 L (BEAKER) (test code = 752) RED CELL DISTRIBUTION WIDTH 27.9 % 11.7-14.4 H (BEAKER) (test code = 412) PLATELET COUNT (BEAKER) (test 337 K/CU MM 150-450 code = 756) MEAN PLATELET VOLUME (BEAKER) 10.2 fL 9.4-12.3 (test code = 754) NUCLEATED RED BLOOD CELLS 63 /100 WBC 0-0 H (BEAKER) (test code = 413) NEUTROPHILS RELATIVE PERCENT 45 % (BEAKER) (test code = 429) LYMPHOCYTES RELATIVE PERCENT 35 % (BEAKER) (test code = 430) MONOCYTES RELATIVE PERCENT 16 % (BEAKER) (test code = 431) EOSINOPHILS RELATIVE PERCENT 2 % (BEAKER) (test code = 432) BASOPHILS RELATIVE PERCENT 0 % (BEAKER) (test code = 437) NEUTROPHILS ABSOLUTE COUNT 8.10 K/ L 1.56-6.13 H (BEAKER) (test code = 670) LYMPHOCYTES ABSOLUTE COUNT 6.24 K/ L 1.18-3.74 H (BEAKER) (test code = 414) MONOCYTES ABSOLUTE COUNT (BEAKER) 2.96 K/ L 0.24-0.36 H (test code = 415) EOSINOPHILS ABSOLUTE COUNT 0.38 K/ L 0.04-0.36 H (BEAKER) (test code = 416) BASOPHILS ABSOLUTE COUNT (BEAKER) 0.06 K/ L 0.01-0.08 (test code = 417) IMMATURE GRANULOCYTES-RELATIVE 2 % 0-1 H PERCENT (BEAKER) (test code = 2801) (CELLAVISION MANUAL DIFF)2018-01-30 15:02:00 Test Item Value Reference Range Interpretation Comments TOTAL COUNTED (BEAKER) (test code = 1351) WBC MORPHOLOGY (BEAKER) (test Normal code = 487) PLT MORPHOLOGY (BEAKER) (test Normal code = 486) POLYCHROMATOPHILLIC RBCS(BEAKER) 2+ moderate (test code = 478) ANISOCYTOSIS (BEAKER) (test code 2+ moderate = 961) TARGET CELLS (BEAKER) (test code 2+ moderate = 480) SICKLE CELLS (BEAKER) (test code 1+ few = 767) BASIC METABOLIC [id number] 09:27:00 Test Item Value Reference Range Interpretation Comments SODIUM (BEAKER) 141 meq/L 136-145 (test code = 381) POTASSIUM (BEAKER) 4.0 meq/L 3.5-5.1 (test code = 379) CHLORIDE (BEAKER) 108 meq/L 98-107 H (test code = 382) CO2 (BEAKER) (test 24 meq/L 22-29 code = 355) BLOOD UREA NITROGEN 12 mg/dL 7-21 (BEAKER) (test code = 354) CREATININE (BEAKER) 0.80 mg/dL 0.57-1.25 (test code = 358) GLUCOSE RANDOM 95 mg/dL 70-105 (BEAKER) (test code = 652) CALCIUM (BEAKER) 9.5 mg/dL 8.4-10.2 (test code = 697) EGFR (BEAKER) (test 97 mL/min/1.73 ESTIMA DUNCAN GFR IS code = 1092) sq m NOT ACCURATE CREATININE CLEARANCE IN PREDICTING GLOMERULAR FILTRATION RATE . ESTIMATED GFR I S NOT APPLICABLE FOR DIALYSIS PATIEN TS. [id number] 17:59:00 Test Item Value Reference Range Interpretation Comments FERRITIN (BEAKER) (test code = 32289 ng/mL 5-275 H 361) CBC W/PLT COUNT & AUTO [id number] 17:20:00 Test Item Value Reference Range Interpretation Comments WHITE BLOOD CELL COUNT (BEAKER) 19.9 K/ L 3.5-10.5 H (test code = 775) RED BLOOD CELL COUNT (BEAKER) 1.53 M/ L 3.93-5.22 L (test code = 761) HEMOGLOBIN (BEAKER) (test code = 5.0 GM/DL 11.2-15.7 LL 410) HEMATOCRIT (BEAKER) (test code = 16.0 % 34.1-44.9 L 411) MEAN CORPUSCULAR VOLUME (BEAKER) 104.6 fL 79.4-94.8 H (test code = 753) MEAN CORPUSCULAR HEMOGLOBIN 32.7 pg 25.6-32.2 H (BEAKER) (test code = 751) MEAN CORPUSCULAR HEMOGLOBIN CONC 31.3 GM/DL 32.2-35.5 L (BEAKER) (test code = 752) RED CELL DISTRIBUTION WIDTH 33.7 % 11.7-14.4 H (BEAKER) (test code = 412) PLATELET COUNT (BEAKER) (test 364 K/CU MM 150-450 code = 756) MEAN PLATELET VOLUME (BEAKER) 10.4 fL 9.4-12.3 (test code = 754) NUCLEATED RED BLOOD CELLS 62 /100 WBC 0-0 H (BEAKER) (test code = 413) RETICULOCYTE [id number] 17:20:00 Test Item Value Reference Range Interpretation Comments RETICULOCYTE COUNT PCT (BEAKER) (test > % 0.5-1.7 H code = 575) (CELLAVISION MANUAL DIFF)2018-01-29 17:20:00 Test Item Value Reference Range Interpretation Comments TOTAL COUNTED (BEAKER) (test code = 1351) RBC MORPHOLOGY (BEAKER) (test code = Normal 762) WBC MORPHOLOGY (BEAKER) (test code = Normal 487) PLT MORPHOLOGY (BEAKER) (test code = Normal 486) LACTATE DEHYDROGENASE (LDH)2018-01-29 17:04:00 Test Item Value Reference Range Interpretation Comments LACTATE DEHYDROGENASE (BEAKER) (test 989 U/L 125-220 H code = 635) BASIC METABOLIC [id number] 17:04:00 Test Item Value Reference Range Interpretation Comments SODIUM (BEAKER) 138 meq/L 136-145 (test code = 381) POTASSIUM (BEAKER) 4.2 meq/L 3.5-5.1 (test code = 379) CHLORIDE (BEAKER) 109 meq/L 98-107 H (test code = 382) CO2 (BEAKER) (test 22 meq/L 22-29 code = 355) BLOOD UREA NITROGEN 11 mg/dL 7-21 (BEAKER) (test code = 354) CREATININE (BEAKER) 0.76 mg/dL 0.57-1.25 (test code = 358) GLUCOSE RANDOM 104 mg/dL 70-105 (BEAKER) (test code = 652) CALCIUM (BEAKER) 9.5 mg/dL 8.4-10.2 (test code = 697) EGFR (BEAKER) (test 103 mL/min/1.73 ESTIM ATED GFR IS code = 1092) sq m NOT ACCURATE CREATININE CLEARANCE IN PREDICTING GLOMERULAR FILTRATION RATE . ESTIMATED GFR I S NOT APPLICABLE FOR DIALYSIS PATIEN TS. ANTI-MITOCHONDRIAL AB, REFLEX TO [id number] 11:03:00 Test Item Value Reference Range Interpretation Comments SCAN RESULT (test code = 4594225) CALCIUM, [id number] 07:05:00 Test Item Value Reference Range Interpretation Comments CALCIUM IONIZED (BEAKER) (test 1.10 mmol/L 1.12-1.27 L code = 698) PH, BLOOD (BEAKER) (test code = 7.30 1810) [id number] 06:22:00 Test Item Value Reference Range Interpretation Comments PHOSPHORUS (BEAKER) (test code = 4.7 mg/dL 2.3-4.7 604) [id number] 06:22:00 Test Item Value Reference Range Interpretation Comments MAGNESIUM (BEAKER) (test code = 1.4 mg/dL 1.6-2.6 L 627) BASIC METABOLIC [id number] 06:22:00 Test Item Value Reference Range Interpretation Comments SODIUM (BEAKER) 135 meq/L 136-145 L (test code = 381) POTASSIUM (BEAKER) 4.5 meq/L 3.5-5.1 (test code = 379) CHLORIDE (BEAKER) 100 meq/L 98-107 (test code = 382) CO2 (BEAKER) (test 29 meq/L 22-29 code = 355) BLOOD UREA NITROGEN 19 mg/dL 7-21 (BEAKER) (test code = 354) CREATININE (BEAKER) 0.76 mg/dL 0.57-1.25 (test code = 358) GLUCOSE RANDOM 104 mg/dL 70-105 (BEAKER) (test code = 652) CALCIUM (BEAKER) 9.3 mg/dL 8.4-10.2 (test code = 697) EGFR (BEAKER) (test 103 mL/min/1.73 ESTIM ATED GFR IS code = 1092) sq m NOT ACCURATE CREATININE CLEARANCE IN PREDICTING GLOMERULAR FILTRATION RATE . ESTIMATED GFR I S NOT APPLICABLE FOR DIALYSIS PATIEN TS. CREATINE KINASE (CK)2017-11-24 08:12:00 Test Item Value Reference Range Interpretation Comments CREATINE KINASE TOTAL (BEAKER) (test 8 U/L 29-200 L code = 380) URIC [id number] 08:01:00 Test Item Value Reference Range Interpretation Comments URIC ACID (BEAKER) (test code = 4.8 mg/dL 2.6-7.2 773) [id number] 08:01:00 Test Item Value Reference Range Interpretation Comments MAGNESIUM (BEAKER) (test code = 1.5 mg/dL 1.6-2.6 L 627) [id number] 08:01:00 Test Item Value Reference Range Interpretation Comments PHOSPHORUS (BEAKER) (test code = 5.3 mg/dL 2.3-4.7 H 604) BASIC METABOLIC [id number] 08:01:00 Test Item Value Reference Range Interpretation Comments SODIUM (BEAKER) 138 meq/L 136-145 (test code = 381) POTASSIUM (BEAKER) 4.9 meq/L 3.5-5.1 (test code = 379) CHLORIDE (BEAKER) 100 meq/L 98-107 (test code = 382) CO2 (BEAKER) (test 28 meq/L 22-29 code = 355) BLOOD UREA NITROGEN 22 mg/dL 7-21 H (BEAKER) (test code = 354) CREATININE (BEAKER) 0.80 mg/dL 0.57-1.25 (test code = 358) GLUCOSE RANDOM 102 mg/dL 70-105 (BEAKER) (test code = 652) CALCIUM (BEAKER) 9.3 mg/dL 8.4-10.2 (test code = 697) EGFR (BEAKER) (test 97 mL/min/1.73 ESTIMA DUNCAN GFR IS code = 1092) sq m NOT ACCURATE CREATININE CLEARANCE IN PREDICTING GLOMERULAR FILTRATION RATE . ESTIMATED GFR I S NOT APPLICABLE FOR DIALYSIS PATIEN TS. LACTATE DEHYDROGENASE (LDH)2017-11-24 08:01:00 Test Item Value Reference Range Interpretation Comments LACTATE DEHYDROGENASE (BEAKER) (test 489 U/L 125-220 H code = 635) [id number] 18:07:00 Test Item Value Reference Range Interpretation Comments POTASSIUM (BEAKER) (test code = 5.5 meq/L 3.5-5.1 H 379) Call if K > 5.4 to renal 057 790 1032CALCIUM, [id number] 06:51:00 Test Item Value Reference Range Interpretation Comments CALCIUM IONIZED (BEAKER) (test 1.08 mmol/L 1.12-1.27 L code = 698) PH, BLOOD (BEAKER) (test code = 7.35 1810) CBC W/PLT COUNT & AUTO [id number] 06:25:00 Test Item Value Reference Range Interpretation Comments WHITE BLOOD CELL COUNT (BEAKER) 18.3 K/ L 3.5-10.5 H (test code = 775) RED BLOOD CELL COUNT (BEAKER) 2.30 M/ L 3.93-5.22 L (test code = 761) HEMOGLOBIN (BEAKER) (test code = 6.5 GM/DL 11.2-15.7 L 410) HEMATOCRIT (BEAKER) (test code = 21.1 % 34.1-44.9 L 411) MEAN CORPUSCULAR VOLUME (BEAKER) 91.7 fL 79.4-94.8 (test code = 753) MEAN CORPUSCULAR HEMOGLOBIN 28.3 pg 25.6-32.2 (BEAKER) (test code = 751) MEAN CORPUSCULAR HEMOGLOBIN CONC 30.8 GM/DL 32.2-35.5 L (BEAKER) (test code = 752) RED CELL DISTRIBUTION WIDTH 21.2 % 11.7-14.4 H (BEAKER) (test code = 412) PLATELET COUNT (BEAKER) (test 414 K/CU MM 150-450 code = 756) MEAN PLATELET VOLUME (BEAKER) 11.5 fL 9.4-12.3 (test code = 754) NUCLEATED RED BLOOD CELLS 0 /100 WBC 0-0 (BEAKER) (test code = 413) NEUTROPHILS RELATIVE PERCENT 53 % (BEAKER) (test code = 429) LYMPHOCYTES RELATIVE PERCENT 25 % (BEAKER) (test code = 430) MONOCYTES RELATIVE PERCENT 19 % (BEAKER) (test code = 431) EOSINOPHILS RELATIVE PERCENT 2 % (BEAKER) (test code = 432) BASOPHILS RELATIVE PERCENT 0 % (BEAKER) (test code = 437) NEUTROPHILS ABSOLUTE COUNT 9.74 K/ L 1.56-6.13 H (BEAKER) (test code = 670) LYMPHOCYTES ABSOLUTE COUNT 4.57 K/ L 1.18-3.74 H (BEAKER) (test code = 414) MONOCYTES ABSOLUTE COUNT (BEAKER) 3.51 K/ L 0.24-0.36 H (test code = 415) EOSINOPHILS ABSOLUTE COUNT 0.29 K/ L 0.04-0.36 (BEAKER) (test code = 416) BASOPHILS ABSOLUTE COUNT (BEAKER) 0.07 K/ L 0.01-0.08 (test code = 417) IMMATURE GRANULOCYTES-RELATIVE 1 % 0-1 PERCENT (BEAKER) (test code = 2801) [id number] 05:35:00 Test Item Value Reference Range Interpretation Comments PHOSPHORUS (BEAKER) (test code = 4.4 mg/dL 2.3-4.7 604) [id number] 05:35:00 Test Item Value Reference Range Interpretation Comments MAGNESIUM (BEAKER) (test code = 1.3 mg/dL 1.6-2.6 L 627) BASIC METABOLIC [id number] 05:35:00 Test Item Value Reference Range Interpretation Comments SODIUM (BEAKER) 136 meq/L 136-145 (test code = 381) POTASSIUM (BEAKER) 5.4 meq/L 3.5-5.1 H (test code = 379) CHLORIDE (BEAKER) 97 meq/L 98-107 L (test code = 382) CO2 (BEAKER) (test 31 meq/L 22-29 H code = 355) BLOOD UREA NITROGEN 20 mg/dL 7-21 (BEAKER) (test code = 354) CREATININE (BEAKER) 0.75 mg/dL 0.57-1.25 (test code = 358) GLUCOSE RANDOM 81 mg/dL 70-105 (BEAKER) (test code = 652) CALCIUM (BEAKER) 9.5 mg/dL 8.4-10.2 (test code = 697) EGFR (BEAKER) (test 105 mL/min/1.73 ESTIM ATED GFR IS code = 1092) sq m NOT ACCURATE CREATININE CLEARANCE IN PREDICTING GLOMERULAR FILTRATION RATE . ESTIMATED GFR I S NOT APPLICABLE FOR DIALYSIS PATIEN TS. [id number] 16:19:00 Test Item Value Reference Range Interpretation Comments POTASSIUM (BEAKER) (test code = 5.2 meq/L 3.5-5.1 H 379) Repeat after 3 hours kayexalate was given; call result [id number] 2017-11-22 12:53:00 Test Item Value Reference Range Interpretation Comments SODIUM (BEAKER) (test code = 381) 137 meq/L 136-145 POTASSIUM (BEAKER) (test code = 5.4 meq/L 3.5-5.1 H 379) CHLORIDE (BEAKER) (test code = 382) 100 meq/L 98-107 CO2 (BEAKER) (test code = 355) 30 meq/L 22-29 H Call results [id number] 11:14:00 Test Item Value Reference Range Interpretation Comments POTASSIUM (BEAKER) (test code = 5.8 meq/L 3.5-5.1 H 379) [id number] 06:40:00 Test Item Value Reference Range Interpretation Comments PHOSPHORUS (BEAKER) (test code = 5.4 mg/dL 2.3-4.7 H 604) [id number] 06:40:00 Test Item Value Reference Range Interpretation Comments MAGNESIUM (BEAKER) (test code = 1.6 mg/dL 1.6-2.6 627) CALCIUM, [id number] 06:27:00 Test Item Value Reference Range Interpretation Comments CALCIUM IONIZED (BEAKER) (test 0.99 mmol/L 1.12-1.27 L code = 698) PH, BLOOD (BEAKER) (test code = 7.43 1810) CBC W/PLT COUNT & AUTO [id number] 05:53:00 Test Item Value Reference Range Interpretation Comments WHITE BLOOD CELL COUNT (BEAKER) 16.2 K/ L 3.5-10.5 H (test code = 775) RED BLOOD CELL COUNT (BEAKER) 2.38 M/ L 3.93-5.22 L (test code = 761) HEMOGLOBIN (BEAKER) (test code = 7.0 GM/DL 11.2-15.7 L 410) HEMATOCRIT (BEAKER) (test code = 22.2 % 34.1-44.9 L 411) MEAN CORPUSCULAR VOLUME (BEAKER) 93.3 fL 79.4-94.8 (test code = 753) MEAN CORPUSCULAR HEMOGLOBIN 29.4 pg 25.6-32.2 (BEAKER) (test code = 751) MEAN CORPUSCULAR HEMOGLOBIN CONC 31.5 GM/DL 32.2-35.5 L (BEAKER) (test code = 752) RED CELL DISTRIBUTION WIDTH 21.3 % 11.7-14.4 H (BEAKER) (test code = 412) PLATELET COUNT (BEAKER) (test 390 K/CU MM 150-450 code = 756) MEAN PLATELET VOLUME (BEAKER) 11.8 fL 9.4-12.3 (test code = 754) NUCLEATED RED BLOOD CELLS 0 /100 WBC 0-0 (BEAKER) (test code = 413) NEUTROPHILS RELATIVE PERCENT 58 % (BEAKER) (test code = 429) LYMPHOCYTES RELATIVE PERCENT 23 % (BEAKER) (test code = 430) MONOCYTES RELATIVE PERCENT 17 % (BEAKER) (test code = 431) EOSINOPHILS RELATIVE PERCENT 2 % (BEAKER) (test code = 432) BASOPHILS RELATIVE PERCENT 0 % (BEAKER) (test code = 437) NEUTROPHILS ABSOLUTE COUNT 9.31 K/ L 1.56-6.13 H (BEAKER) (test code = 670) LYMPHOCYTES ABSOLUTE COUNT 3.65 K/ L 1.18-3.74 (BEAKER) (test code = 414) MONOCYTES ABSOLUTE COUNT (BEAKER) 2.70 K/ L 0.24-0.36 H (test code = 415) EOSINOPHILS ABSOLUTE COUNT 0.36 K/ L 0.04-0.36 (BEAKER) (test code = 416) BASOPHILS ABSOLUTE COUNT (BEAKER) 0.04 K/ L 0.01-0.08 (test code = 417) IMMATURE GRANULOCYTES-RELATIVE 1 % 0-1 PERCENT (BEAKER) (test code = 2801) BASIC METABOLIC [id number] 17:35:00 Test Item Value Reference Range Interpretation Comments SODIUM (BEAKER) 133 meq/L 136-145 L (test code = 381) POTASSIUM (BEAKER) 5.4 meq/L 3.5-5.1 H (test code = 379) CHLORIDE (BEAKER) 99 meq/L 98-107 (test code = 382) CO2 (BEAKER) (test 26 meq/L 22-29 code = 355) BLOOD UREA NITROGEN 23 mg/dL 7-21 H (BEAKER) (test code = 354) CREATININE (BEAKER) 0.83 mg/dL 0.57-1.25 (test code = 358) GLUCOSE RANDOM 94 mg/dL 70-105 (BEAKER) (test code = 652) CALCIUM (BEAKER) 9.2 mg/dL 8.4-10.2 (test code = 697) EGFR (BEAKER) (test 93 mL/min/1.73 ESTIMA DUNCAN GFR IS code = 1092) sq m NOT ACCURATE CREATININE CLEARANCE IN PREDICTING GLOMERULAR FILTRATION RATE . ESTIMATED GFR I S NOT APPLICABLE FOR DIALYSIS PATIEN TS. [id number] 06:33:00 Test Item Value Reference Range Interpretation Comments PHOSPHORUS (BEAKER) (test code = 5.3 mg/dL 2.3-4.7 H 604) [id number] 06:33:00 Test Item Value Reference Range Interpretation Comments MAGNESIUM (BEAKER) (test code = 1.6 mg/dL 1.6-2.6 627) BASIC METABOLIC [id number] 06:33:00 Test Item Value Reference Range Interpretation Comments SODIUM (BEAKER) 133 meq/L 136-145 L (test code = 381) POTASSIUM (BEAKER) 5.2 meq/L 3.5-5.1 H (test code = 379) CHLORIDE (BEAKER) 97 meq/L 98-107 L (test code = 382) CO2 (BEAKER) (test 29 meq/L 22-29 code = 355) BLOOD UREA NITROGEN 23 mg/dL 7-21 H (BEAKER) (test code = 354) CREATININE (BEAKER) 0.77 mg/dL 0.57-1.25 (test code = 358) GLUCOSE RANDOM 92 mg/dL 70-105 (BEAKER) (test code = 652) CALCIUM (BEAKER) 9.4 mg/dL 8.4-10.2 (test code = 697) EGFR (BEAKER) (test 102 mL/min/1.73 ESTIM ATED GFR IS code = 1092) sq m NOT ACCURATE CREATININE CLEARANCE IN PREDICTING GLOMERULAR FILTRATION RATE . ESTIMATED GFR I S NOT APPLICABLE FOR DIALYSIS PATIEN TS. CALCIUM, [id number] 06:22:00 Test Item Value Reference Range Interpretation Comments CALCIUM IONIZED (BEAKER) (test 1.18 mmol/L 1.12-1.27 code = 698) PH, BLOOD (BEAKER) (test code = 7.32 1810) B-TYPE NATRIURETIC FACTOR (BNP)2017-11-21 06:19:00 Test Item Value Reference Range Interpretation Comments B-TYPE NATRIURETIC PEPTIDE (BEAKER) 120 pg/mL 0-100 H (test code = 700) CBC W/PLT COUNT & AUTO [id number] 05:59:00 Test Item Value Reference Range Interpretation Comments WHITE BLOOD CELL COUNT (BEAKER) 17.4 K/ L 3.5-10.5 H (test code = 775) RED BLOOD CELL COUNT (BEAKER) 2.32 M/ L 3.93-5.22 L (test code = 761) HEMOGLOBIN (BEAKER) (test code = 6.7 GM/DL 11.2-15.7 L 410) HEMATOCRIT (BEAKER) (test code = 21.6 % 34.1-44.9 L 411) MEAN CORPUSCULAR VOLUME (BEAKER) 93.1 fL 79.4-94.8 (test code = 753) MEAN CORPUSCULAR HEMOGLOBIN 28.9 pg 25.6-32.2 (BEAKER) (test code = 751) MEAN CORPUSCULAR HEMOGLOBIN CONC 31.0 GM/DL 32.2-35.5 L (BEAKER) (test code = 752) RED CELL DISTRIBUTION WIDTH 20.9 % 11.7-14.4 H (BEAKER) (test code = 412) PLATELET COUNT (BEAKER) (test 367 K/CU MM 150-450 code = 756) MEAN PLATELET VOLUME (BEAKER) 12.1 fL 9.4-12.3 (test code = 754) NUCLEATED RED BLOOD CELLS 0 /100 WBC 0-0 (BEAKER) (test code = 413) NEUTROPHILS RELATIVE PERCENT 58 % (BEAKER) (test code = 429) LYMPHOCYTES RELATIVE PERCENT 23 % (BEAKER) (test code = 430) MONOCYTES RELATIVE PERCENT 16 % (BEAKER) (test code = 431) EOSINOPHILS RELATIVE PERCENT 3 % (BEAKER) (test code = 432) BASOPHILS RELATIVE PERCENT 1 % (BEAKER) (test code = 437) NEUTROPHILS ABSOLUTE COUNT 10.09 K/ L 1.56-6.13 H (BEAKER) (test code = 670) LYMPHOCYTES ABSOLUTE COUNT 3.92 K/ L 1.18-3.74 H (BEAKER) (test code = 414) MONOCYTES ABSOLUTE COUNT (BEAKER) 2.71 K/ L 0.24-0.36 H (test code = 415) EOSINOPHILS ABSOLUTE COUNT 0.46 K/ L 0.04-0.36 H (BEAKER) (test code = 416) BASOPHILS ABSOLUTE COUNT (BEAKER) 0.08 K/ L 0.01-0.08 (test code = 417) IMMATURE GRANULOCYTES-RELATIVE 1 % 0-1 PERCENT (BEAKER) (test code = 2801) BLOOD GAS, [id number] 07:22:00 Test Item Value Reference Range Interpretation Comments PH VENOUS (BEAKER) (test code = 7.34 7.32-7.42 701) PCO2 VENOUS (BEAKER) (test code = 63 mmHg 41-51 H 755) PO2 VENOUS (BEAKER) (test code = 133 mmHg 25-40 H 702) O2 SATURATION VENOUS (BEAKER) 98.4 % 40.0-70.0 H (test code = 703) HCO3 VENOUS (BEAKER) (test code = 33 mmol/L 21-29 H 705) BASE EXCESS VENOUS (BEAKER) (test 6.6 mmol/L -2.0-3.0 H code = 704) PATIENT TEMPERATURE (BEAKER) (test 37.0 C code = 1818) FIO2 (BEAKER) (test code = 1819) 21.0 % CALCIUM, [id number] 07:20:00 Test Item Value Reference Range Interpretation Comments CALCIUM IONIZED (BEAKER) (test 1.10 mmol/L 1.12-1.27 L code = 698) PH, BLOOD (BEAKER) (test code = 7.33 1810) [id number] 07:18:00 Test Item Value Reference Range Interpretation Comments PHOSPHORUS (BEAKER) (test code = 4.8 mg/dL 2.3-4.7 H 604) [id number] 07:18:00 Test Item Value Reference Range Interpretation Comments MAGNESIUM (BEAKER) (test code = 1.6 mg/dL 1.6-2.6 627) BASIC METABOLIC [id number] 07:18:00 Test Item Value Reference Range Interpretation Comments SODIUM (BEAKER) 137 meq/L 136-145 (test code = 381) POTASSIUM (BEAKER) 4.8 meq/L 3.5-5.1 (test code = 379) CHLORIDE (BEAKER) 99 meq/L 98-107 (test code = 382) CO2 (BEAKER) (test 31 meq/L 22-29 H code = 355) BLOOD UREA NITROGEN 20 mg/dL 7-21 (BEAKER) (test code = 354) CREATININE (BEAKER) 0.83 mg/dL 0.57-1.25 (test code = 358) GLUCOSE RANDOM 117 mg/dL 70-105 H (BEAKER) (test code = 652) CALCIUM (BEAKER) 9.5 mg/dL 8.4-10.2 (test code = 697) EGFR (BEAKER) (test 93 mL/min/1.73 ESTIMA DUNCAN GFR IS code = 1092) sq m NOT ACCURATE CREATININE CLEARANCE IN PREDICTING GLOMERULAR FILTRATION RATE . ESTIMATED GFR I S NOT APPLICABLE FOR DIALYSIS PATIEN TS. CBC W/PLT COUNT & AUTO [id number] 07:14:00 Test Item Value Reference Range Interpretation Comments WHITE BLOOD CELL COUNT (BEAKER) 16.7 K/ L 3.5-10.5 H (test code = 775) RED BLOOD CELL COUNT (BEAKER) 2.39 M/ L 3.93-5.22 L (test code = 761) HEMOGLOBIN (BEAKER) (test code = 6.9 GM/DL 11.2-15.7 L 410) HEMATOCRIT (BEAKER) (test code = 22.3 % 34.1-44.9 L 411) MEAN CORPUSCULAR VOLUME (BEAKER) 93.3 fL 79.4-94.8 (test code = 753) MEAN CORPUSCULAR HEMOGLOBIN 28.9 pg 25.6-32.2 (BEAKER) (test code = 751) MEAN CORPUSCULAR HEMOGLOBIN CONC 30.9 GM/DL 32.2-35.5 L (BEAKER) (test code = 752) RED CELL DISTRIBUTION WIDTH 21.1 % 11.7-14.4 H (BEAKER) (test code = 412) PLATELET COUNT (BEAKER) (test 344 K/CU MM 150-450 code = 756) MEAN PLATELET VOLUME (BEAKER) 11.7 fL 9.4-12.3 (test code = 754) NUCLEATED RED BLOOD CELLS 0 /100 WBC 0-0 (BEAKER) (test code = 413) NEUTROPHILS RELATIVE PERCENT 60 % (BEAKER) (test code = 429) LYMPHOCYTES RELATIVE PERCENT 23 % (BEAKER) (test code = 430) MONOCYTES RELATIVE PERCENT 14 % (BEAKER) (test code = 431) EOSINOPHILS RELATIVE PERCENT 3 % (BEAKER) (test code = 432) BASOPHILS RELATIVE PERCENT 0 % (BEAKER) (test code = 437) NEUTROPHILS ABSOLUTE COUNT 9.95 K/ L 1.56-6.13 H (BEAKER) (test code = 670) LYMPHOCYTES ABSOLUTE COUNT 3.92 K/ L 1.18-3.74 H (BEAKER) (test code = 414) MONOCYTES ABSOLUTE COUNT (BEAKER) 2.29 K/ L 0.24-0.36 H (test code = 415) EOSINOPHILS ABSOLUTE COUNT 0.45 K/ L 0.04-0.36 H (BEAKER) (test code = 416) BASOPHILS ABSOLUTE COUNT (BEAKER) 0.04 K/ L 0.01-0.08 (test code = 417) IMMATURE GRANULOCYTES-RELATIVE 0 % 0-1 PERCENT (BEAKER) (test code = 2801) [id number] 11:18:00 Test Item Value Reference Range Interpretation Comments FERRITIN (BEAKER) (test code = 04847 ng/mL 5-275 H 361) [id number] 07:10:00 Test Item Value Reference Range Interpretation Comments MAGNESIUM (BEAKER) (test code = 2.0 mg/dL 1.6-2.6 627) BASIC METABOLIC [id number] 07:10:00 Test Item Value Reference Range Interpretation Comments SODIUM (BEAKER) 137 meq/L 136-145 (test code = 381) POTASSIUM (BEAKER) 4.5 meq/L 3.5-5.1 (test code = 379) CHLORIDE (BEAKER) 99 meq/L 98-107 (test code = 382) CO2 (BEAKER) (test 35 meq/L 22-29 H code = 355) BLOOD UREA NITROGEN 18 mg/dL 7-21 (BEAKER) (test code = 354) CREATININE (BEAKER) 0.78 mg/dL 0.57-1.25 (test code = 358) GLUCOSE RANDOM 102 mg/dL 70-105 (BEAKER) (test code = 652) CALCIUM (BEAKER) 9.4 mg/dL 8.4-10.2 (test code = 697) EGFR (BEAKER) (test 100 mL/min/1.73 ESTIM ATED GFR IS code = 1092) sq m NOT ACCURATE CREATININE CLEARANCE IN PREDICTING GLOMERULAR FILTRATION RATE . ESTIMATED GFR I S NOT APPLICABLE FOR DIALYSIS PATIEN TS. CBC (HEMOGRAM ONLY)2017-11-19 07:06:00 Test Item Value Reference Range Interpretation Comments WHITE BLOOD CELL COUNT (BEAKER) 15.3 K/ L 3.5-10.5 H (test code = 775) RED BLOOD CELL COUNT (BEAKER) 2.42 M/ L 3.93-5.22 L (test code = 761) HEMOGLOBIN (BEAKER) (test code = 7.1 GM/DL 11.2-15.7 L 410) HEMATOCRIT (BEAKER) (test code = 22.5 % 34.1-44.9 L 411) MEAN CORPUSCULAR VOLUME (BEAKER) 93.0 fL 79.4-94.8 (test code = 753) MEAN CORPUSCULAR HEMOGLOBIN 29.3 pg 25.6-32.2 (BEAKER) (test code = 751) MEAN CORPUSCULAR HEMOGLOBIN CONC 31.6 GM/DL 32.2-35.5 L (BEAKER) (test code = 752) RED CELL DISTRIBUTION WIDTH 20.9 % 11.7-14.4 H (BEAKER) (test code = 412) PLATELET COUNT (BEAKER) (test 324 K/CU MM 150-450 code = 756) MEAN PLATELET VOLUME (BEAKER) 11.8 fL 9.4-12.3 (test code = 754) NUCLEATED RED BLOOD CELLS 1 /100 WBC 0-0 H (BEAKER) (test code = 413) BLOOD [id number] 06:00:00 Test Item Value Reference Range Interpretation Comments CULTURE (BEAKER) (test No growth in 5 days code = 1095) ANTI-NUCLEAR ANTIBODY (AMARILYS)2017-11-17 14:21:00 Test Item Value Reference Range Interpretation Comments ANTI-NUCLEAR ANTIBODY (AMARILYS) (BEAKER) Positive Negative A (test code = 418) AMARILYS TITER AND [id number] 14:21:00 Test Item Value Reference Range Interpretation Comments AMARILYS TITER (BEAKER) :160 (test code = 1541) AMARILYS PATTERN (BEAKER) Multiple nuclear dots (test code = 1781) pattern [id number] 07:16:00 Test Item Value Reference Range Interpretation Comments PHOSPHORUS (BEAKER) (test code = 4.5 mg/dL 2.3-4.7 604) [id number] 07:16:00 Test Item Value Reference Range Interpretation Comments MAGNESIUM (BEAKER) (test code = 1.4 mg/dL 1.6-2.6 L 627) BASIC METABOLIC [id number] 07:16:00 Test Item Value Reference Range Interpretation Comments SODIUM (BEAKER) 141 meq/L 136-145 (test code = 381) POTASSIUM (BEAKER) 4.2 meq/L 3.5-5.1 (test code = 379) CHLORIDE (BEAKER) 98 meq/L 98-107 (test code = 382) CO2 (BEAKER) (test 34 meq/L 22-29 H code = 355) BLOOD UREA NITROGEN 21 mg/dL 7-21 (BEAKER) (test code = 354) CREATININE (BEAKER) 0.85 mg/dL 0.57-1.25 (test code = 358) GLUCOSE RANDOM 98 mg/dL 70-105 (BEAKER) (test code = 652) CALCIUM (BEAKER) 9.2 mg/dL 8.4-10.2 (test code = 697) EGFR (BEAKER) (test 91 mL/min/1.73 ESTIMA DUNCAN GFR IS code = 1092) sq m NOT ACCURATE CREATININE CLEARANCE IN PREDICTING GLOMERULAR FILTRATION RATE . ESTIMATED GFR I S NOT APPLICABLE FOR DIALYSIS PATIEN TS. HEPATIC FUNCTION [id number] 07:16:00 Test Item Value Reference Range Interpretation Comments TOTAL PROTEIN (BEAKER) (test code = 8.3 gm/dL 6.0-8.3 770) ALBUMIN (BEAKER) (test code = 1145) 3.0 g/dL 3.5-5.0 L BILIRUBIN TOTAL (BEAKER) (test code 1.3 mg/dL 0.2-1.2 H = 377) BILIRUBIN DIRECT (BEAKER) (test 0.7 mg/dL 0.1-0.5 H code = 706) ALKALINE PHOSPHATASE (BEAKER) (test 217 U/L 40-150 H code = 346) AST (SGOT) (BEAKER) (test code = 106 U/L 5-34 H 353) ALT (SGPT) (BEAKER) (test code = 46 U/L 6-55 347) CALCIUM, [id number] 06:50:00 Test Item Value Reference Range Interpretation Comments CALCIUM IONIZED (BEAKER) (test 1.11 mmol/L 1.12-1.27 L code = 698) PH, BLOOD (BEAKER) (test code = 7.34 1810) CBC W/PLT COUNT & AUTO [id number] 06:09:00 Test Item Value Reference Range Interpretation Comments WHITE BLOOD CELL COUNT (BEAKER) 16.8 K/ L 3.5-10.5 H (test code = 775) RED BLOOD CELL COUNT (BEAKER) 2.53 M/ L 3.93-5.22 L (test code = 761) HEMOGLOBIN (BEAKER) (test code = 7.3 GM/DL 11.2-15.7 L 410) HEMATOCRIT (BEAKER) (test code = 23.3 % 34.1-44.9 L 411) MEAN CORPUSCULAR VOLUME (BEAKER) 92.1 fL 79.4-94.8 (test code = 753) MEAN CORPUSCULAR HEMOGLOBIN 28.9 pg 25.6-32.2 (BEAKER) (test code = 751) MEAN CORPUSCULAR HEMOGLOBIN CONC 31.3 GM/DL 32.2-35.5 L (BEAKER) (test code = 752) RED CELL DISTRIBUTION WIDTH 20.2 % 11.7-14.4 H (BEAKER) (test code = 412) PLATELET COUNT (BEAKER) (test 305 K/CU MM 150-450 code = 756) MEAN PLATELET VOLUME (BEAKER) 12.0 fL 9.4-12.3 (test code = 754) NUCLEATED RED BLOOD CELLS 1 /100 WBC 0-0 H (BEAKER) (test code = 413) NEUTROPHILS RELATIVE PERCENT 66 % (BEAKER) (test code = 429) LYMPHOCYTES RELATIVE PERCENT 20 % (BEAKER) (test code = 430) MONOCYTES RELATIVE PERCENT 11 % (BEAKER) (test code = 431) EOSINOPHILS RELATIVE PERCENT 3 % (BEAKER) (test code = 432) BASOPHILS RELATIVE PERCENT 0 % (BEAKER) (test code = 437) NEUTROPHILS ABSOLUTE COUNT 10.99 K/ L 1.56-6.13 H (BEAKER) (test code = 670) LYMPHOCYTES ABSOLUTE COUNT 3.29 K/ L 1.18-3.74 (BEAKER) (test code = 414) MONOCYTES ABSOLUTE COUNT (BEAKER) 1.89 K/ L 0.24-0.36 H (test code = 415) EOSINOPHILS ABSOLUTE COUNT 0.48 K/ L 0.04-0.36 H (BEAKER) (test code = 416) BASOPHILS ABSOLUTE COUNT (BEAKER) 0.05 K/ L 0.01-0.08 (test code = 417) IMMATURE GRANULOCYTES-RELATIVE 0 % 0-1 PERCENT (BEAKER) (test code = 2801) HEPATITIS PANEL, [id number] 14:32:00 Test Item Value Reference Range Interpretation Comments HEPATITIS A IGM ANTIBODY (BEAKER) Nonreactive Nonreactive (test code = 498) HEPATITIS B CORE IGM ANTIBODY Nonreactive Nonreactive (BEAKER) (test code = 645) HEPATITIS C ANTIBODY (BEAKER) Nonreactive Nonreactive (test code = 367) HEPATITIS B SURFACE ANTIGEN (2) Nonreactive Nonreactive (BEAKER) (test code = 2585) RAD, MANDIBLE, LESS THAN 4 [id number] 12:28:00Reason for exam:->fever, dental cariesFINAL REPORT Mandible [...] mastoid air cells are well aerated. Signed: Chevy Cain FUJIAN HAIYUAN Verified Date/Time: 11/16/2017 12:28:43 Reading Location: [facility] Radiology Reading Room RAD, CHEST, 2 [id number] 10:47:00Reason for exam:->fever, chest painFINAL REPORT Chest two views INDICATION: Fever, chest pain COMPARISON: 11/08/2017 IMPRESSION: The cardiac silhouette is enlarged. There is pulmonary vascular congestion with interstitial reticulation suggesting mild edema. Trace pleural effusions are present with improved basilaropacities, likely atelectasis. Pneumonitis cannot be excluded, however. A Port-A-Cath, osteopenia, and chronic left clavicular fracture are noted. No pneumothorax is seen. Signed: Chevy Cain MDReport Verified Date/Time: 11/16/2017 10:47:19 Reading Location: [facility] Radiology Reading Room URINE CULTURE 2017-11-16 09:53:00 Test Item Value Reference Range Interpretation Comments CULTURE (BEAKER) (test >100,000 col/mL skin code = 1095) valentino CBC W/PLT COUNT & AUTO [id number] 09:20:00 Test Item Value Reference Range Interpretation Comments WHITE BLOOD CELL COUNT (BEAKER) 18.6 K/ L 3.5-10.5 H (test code = 775) RED BLOOD CELL COUNT (BEAKER) 2.63 M/ L 3.93-5.22 L (test code = 761) HEMOGLOBIN (BEAKER) (test code = 7.6 GM/DL 11.2-15.7 L 410) HEMATOCRIT (BEAKER) (test code = 23.8 % 34.1-44.9 L 411) MEAN CORPUSCULAR VOLUME (BEAKER) 90.5 fL 79.4-94.8 (test code = 753) MEAN CORPUSCULAR HEMOGLOBIN 28.9 pg 25.6-32.2 (BEAKER) (test code = 751) MEAN CORPUSCULAR HEMOGLOBIN CONC 31.9 GM/DL 32.2-35.5 L (BEAKER) (test code = 752) RED CELL DISTRIBUTION WIDTH 19.9 % 11.7-14.4 H (BEAKER) (test code = 412) PLATELET COUNT (BEAKER) (test 330 K/CU MM 150-450 code = 756) MEAN PLATELET VOLUME (BEAKER) 11.9 fL 9.4-12.3 (test code = 754) NUCLEATED RED BLOOD CELLS 1 /100 WBC 0-0 H (BEAKER) (test code = 413) NEUTROPHILS RELATIVE PERCENT 65 % (BEAKER) (test code = 429) LYMPHOCYTES RELATIVE PERCENT 22 % (BEAKER) (test code = 430) MONOCYTES RELATIVE PERCENT 10 % (BEAKER) (test code = 431) EOSINOPHILS RELATIVE PERCENT 2 % (BEAKER) (test code = 432) BASOPHILS RELATIVE PERCENT 0 % (BEAKER) (test code = 437) NEUTROPHILS ABSOLUTE COUNT 12.09 K/ L 1.56-6.13 H (BEAKER) (test code = 670) LYMPHOCYTES ABSOLUTE COUNT 4.02 K/ L 1.18-3.74 H (BEAKER) (test code = 414) MONOCYTES ABSOLUTE COUNT (BEAKER) 1.90 K/ L 0.24-0.36 H (test code = 415) EOSINOPHILS ABSOLUTE COUNT 0.41 K/ L 0.04-0.36 H (BEAKER) (test code = 416) BASOPHILS ABSOLUTE COUNT (BEAKER) 0.05 K/ L 0.01-0.08 (test code = 417) IMMATURE GRANULOCYTES-RELATIVE 0 % 0-1 PERCENT (BEAKER) (test code = 2801) (MANUAL DIFFERENTIAL)2017-11-16 09:20:00 Test Item Value Reference Range Interpretation Comments TOTAL COUNTED (BEAKER) (test code = 1351) WBC MORPHOLOGY (BEAKER) (test Normal code = 487) PLT MORPHOLOGY (BEAKER) (test Normal code = 486) POLYCHROMATOPHILLIC RBCS(BEAKER) 1+ few (test code = 478) SICKLE CELLS (BEAKER) (test code 1+ few = 767) TARGET CELLS (BEAKER) (test code 2+ moderate = 480) CALCIUM, [id number] 07:28:00 Test Item Value Reference Range Interpretation Comments CALCIUM IONIZED (BEAKER) (test 0.97 mmol/L 1.12-1.27 L code = 698) PH, BLOOD (BEAKER) (test code = 7.45 1810) [id number] 05:48:00 Test Item Value Reference Range Interpretation Comments PHOSPHORUS (BEAKER) (test code = 4.8 mg/dL 2.3-4.7 H 604) [id number] 05:48:00 Test Item Value Reference Range Interpretation Comments MAGNESIUM (BEAKER) (test code = 1.6 mg/dL 1.6-2.6 627) BASIC METABOLIC [id number] 05:48:00 Test Item Value Reference Range Interpretation Comments SODIUM (BEAKER) 139 meq/L 136-145 (test code = 381) POTASSIUM (BEAKER) 3.9 meq/L 3.5-5.1 (test code = 379) CHLORIDE (BEAKER) 98 meq/L 98-107 (test code = 382) CO2 (BEAKER) (test 32 meq/L 22-29 H code = 355) BLOOD UREA NITROGEN 23 mg/dL 7-21 H (BEAKER) (test code = 354) CREATININE (BEAKER) 1.10 mg/dL 0.57-1.25 (test code = 358) GLUCOSE RANDOM 115 mg/dL 70-105 H (BEAKER) (test code = 652) CALCIUM (BEAKER) 9.0 mg/dL 8.4-10.2 (test code = 697) EGFR (BEAKER) (test 67 mL/min/1.73 ESTIMA DUNCAN GFR IS code = 1092) sq m NOT ACCURATE CREATININE CLEARANCE IN PREDICTING GLOMERULAR FILTRATION RATE . ESTIMATED GFR I S NOT APPLICABLE FOR DIALYSIS PATIEN TS. URINALYSIS W/ [id number] 19:14:00 Test Item Value Reference Range Interpretation Comments COLOR (BEAKER) (test code = Yellow 470) CLARITY (BEAKER) (test code = Clear 469) SPECIFIC GRAVITY UA (BEAKER) 1.006 1.001-1.035 (test code = 468) PH UA (BEAKER) (test code = 7.5 5.0-8.0 467) PROTEIN UA (BEAKER) (test code Negative Negative = 464) GLUCOSE UA (BEAKER) (test code Negative Negative = 365) KETONES UA (BEAKER) (test code Negative Negative = 371) BILIRUBIN UA (BEAKER) (test Negative Negative code = 462) BLOOD UA (BEAKER) (test code = Trace Negative A 461) NITRITE UA (BEAKER) (test code Negative Negative = 465) LEUKOCYTE ESTERASE UA (BEAKER) Small Negative A (test code = 466) UROBILINOGEN UA (BEAKER) (test 0.2 mg/dL 0.2-1.0 code = 463) RBC UA (BEAKER) (test code = < /HPF 519) WBC UA (BEAKER) (test code = 7 /HPF 520) BACTERIA (BEAKER) (test code = Rare 517) SQUAMOUS EPITHELIAL (BEAKER) 1 /HPF (test code = 516) SOURCE(BEAKER) (test code = Urine, Voided 1285) [id number] 13:26:00 Test Item Value Reference Range Interpretation Comments LIPASE (BEAKER) (test code = 749) 95 U/L 8-78 H RAD, ABDOMEN/KUB, 1 VIEW [id number] 12:43:00Reason for exam:->abdominal painFINAL REPORT Abdomen one [...] are nonspecific mild lung base opacities. Signed: Chevy Cain MDReport Verified Date/Time: 11/15/2017 12:43:04 Reading Location: [facility] Radiology Reading Room CBC W/PLT COUNT & AUTO [id number] 10:00:00 Test Item Value Reference Range Interpretation Comments WHITE BLOOD CELL COUNT (BEAKER) 18.8 K/ L 3.5-10.5 H (test code = 775) RED BLOOD CELL COUNT (BEAKER) 1.83 M/ L 3.93-5.22 L (test code = 761) HEMOGLOBIN (BEAKER) (test code = 5.4 GM/DL 11.2-15.7 LL 410) HEMATOCRIT (BEAKER) (test code = 16.7 % 34.1-44.9 L 411) MEAN CORPUSCULAR VOLUME (BEAKER) 91.3 fL 79.4-94.8 (test code = 753) MEAN CORPUSCULAR HEMOGLOBIN 29.5 pg 25.6-32.2 (BEAKER) (test code = 751) MEAN CORPUSCULAR HEMOGLOBIN CONC 32.3 GM/DL 32.2-35.5 (BEAKER) (test code = 752) RED CELL DISTRIBUTION WIDTH 21.7 % 11.7-14.4 H (BEAKER) (test code = 412) PLATELET COUNT (BEAKER) (test 340 K/CU MM 150-450 code = 756) MEAN PLATELET VOLUME (BEAKER) 11.3 fL 9.4-12.3 (test code = 754) NUCLEATED RED BLOOD CELLS 2 /100 WBC 0-0 H (BEAKER) (test code = 413) NEUTROPHILS RELATIVE PERCENT 65 % (BEAKER) (test code = 429) LYMPHOCYTES RELATIVE PERCENT 23 % (BEAKER) (test code = 430) MONOCYTES RELATIVE PERCENT 10 % (BEAKER) (test code = 431) EOSINOPHILS RELATIVE PERCENT 1 % (BEAKER) (test code = 432) BASOPHILS RELATIVE PERCENT 0 % (BEAKER) (test code = 437) NEUTROPHILS ABSOLUTE COUNT 12.25 K/ L 1.56-6.13 H (BEAKER) (test code = 670) LYMPHOCYTES ABSOLUTE COUNT 4.31 K/ L 1.18-3.74 H (BEAKER) (test code = 414) MONOCYTES ABSOLUTE COUNT (BEAKER) 1.88 K/ L 0.24-0.36 H (test code = 415) EOSINOPHILS ABSOLUTE COUNT 0.26 K/ L 0.04-0.36 (BEAKER) (test code = 416) BASOPHILS ABSOLUTE COUNT (BEAKER) 0.02 K/ L 0.01-0.08 (test code = 417) IMMATURE GRANULOCYTES-RELATIVE 1 % 0-1 PERCENT (BEAKER) (test code = 2801) (MANUAL DIFFERENTIAL)2017-11-15 10:00:00 Test Item Value Reference Range Interpretation Comments TOTAL COUNTED (BEAKER) (test code = 1351) ATYPICAL LYMPHS(BEAKER) (test code = Present 1678) LARGE PLT(BEAKER) (test code = 2156) Present HYPOCHROMIA (BEAKER) (test code = 1+ few 963) POLYCHROMATOPHILLIC RBCS(BEAKER) 1+ few (test code = 478) SICKLE CELLS (BEAKER) (test code = 1+ few 767) TARGET CELLS (BEAKER) (test code = 1+ few 480) U/S, ENDOVAGINAL (EV)2017-11-15 09:03:00Reason for exam:->ovarian complex [...] MDReport Verified Date/Time: 11/15/2017 09:03:15 Reading Location: [facility] [id number] Ultrasound Reading Room CBC W/PLT COUNT & AUTO [id number] 08:32:00 Test Item Value Reference Range Interpretation Comments WHITE BLOOD CELL COUNT (BEAKER) 19.8 K/ L 3.5-10.5 H (test code = 775) RED BLOOD CELL COUNT (BEAKER) 1.89 M/ L 3.93-5.22 L (test code = 761) HEMOGLOBIN (BEAKER) (test code = 5.6 GM/DL 11.2-15.7 LL 410) HEMATOCRIT (BEAKER) (test code = 17.2 % 34.1-44.9 L 411) MEAN CORPUSCULAR VOLUME (BEAKER) 91.0 fL 79.4-94.8 (test code = 753) MEAN CORPUSCULAR HEMOGLOBIN 29.6 pg 25.6-32.2 (BEAKER) (test code = 751) MEAN CORPUSCULAR HEMOGLOBIN CONC 32.6 GM/DL 32.2-35.5 (BEAKER) (test code = 752) RED CELL DISTRIBUTION WIDTH 21.4 % 11.7-14.4 H (BEAKER) (test code = 412) PLATELET COUNT (BEAKER) (test 366 K/CU MM 150-450 code = 756) MEAN PLATELET VOLUME (BEAKER) 11.6 fL 9.4-12.3 (test code = 754) NUCLEATED RED BLOOD CELLS 2 /100 WBC 0-0 H (BEAKER) (test code = 413) NEUTROPHILS RELATIVE PERCENT 70 % (BEAKER) (test code = 429) LYMPHOCYTES RELATIVE PERCENT 18 % (BEAKER) (test code = 430) MONOCYTES RELATIVE PERCENT 10 % (BEAKER) (test code = 431) EOSINOPHILS RELATIVE PERCENT 1 % (BEAKER) (test code = 432) BASOPHILS RELATIVE PERCENT 0 % (BEAKER) (test code = 437) NEUTROPHILS ABSOLUTE COUNT 13.93 K/ L 1.56-6.13 H (BEAKER) (test code = 670) LYMPHOCYTES ABSOLUTE COUNT 3.51 K/ L 1.18-3.74 (BEAKER) (test code = 414) MONOCYTES ABSOLUTE COUNT (BEAKER) 2.03 K/ L 0.24-0.36 H (test code = 415) EOSINOPHILS ABSOLUTE COUNT 0.23 K/ L 0.04-0.36 (BEAKER) (test code = 416) BASOPHILS ABSOLUTE COUNT (BEAKER) 0.02 K/ L 0.01-0.08 (test code = 417) IMMATURE GRANULOCYTES-RELATIVE 0 % 0-1 PERCENT (BEAKER) (test code = 2801) [id number] 06:16:00 Test Item Value Reference Range Interpretation Comments PHOSPHORUS (BEAKER) (test code = 4.6 mg/dL 2.3-4.7 604) [id number] 06:16:00 Test Item Value Reference Range Interpretation Comments MAGNESIUM (BEAKER) (test code = 1.6 mg/dL 1.6-2.6 627) BASIC METABOLIC [id number] 06:16:00 Test Item Value Reference Range Interpretation Comments SODIUM (BEAKER) 139 meq/L 136-145 (test code = 381) POTASSIUM (BEAKER) 3.9 meq/L 3.5-5.1 (test code = 379) CHLORIDE (BEAKER) 97 meq/L 98-107 L (test code = 382) CO2 (BEAKER) (test 33 meq/L 22-29 H code = 355) BLOOD UREA NITROGEN 24 mg/dL 7-21 H (BEAKER) (test code = 354) CREATININE (BEAKER) 1.15 mg/dL 0.57-1.25 (test code = 358) GLUCOSE RANDOM 104 mg/dL 70-105 (BEAKER) (test code = 652) CALCIUM (BEAKER) 9.1 mg/dL 8.4-10.2 (test code = 697) EGFR (BEAKER) (test 64 mL/min/1.73 ESTIMA DUNCAN GFR IS code = 1092) sq m NOT ACCURATE CREATININE CLEARANCE IN PREDICTING GLOMERULAR FILTRATION RATE . ESTIMATED GFR I S NOT APPLICABLE FOR DIALYSIS PATIEN TS. HEPATIC FUNCTION [id number] 06:16:00 Test Item Value Reference Range Interpretation Comments TOTAL PROTEIN (BEAKER) (test code = 8.2 gm/dL 6.0-8.3 770) ALBUMIN (BEAKER) (test code = 1145) 2.9 g/dL 3.5-5.0 L BILIRUBIN TOTAL (BEAKER) (test code 1.1 mg/dL 0.2-1.2 = 377) BILIRUBIN DIRECT (BEAKER) (test 0.5 mg/dL 0.1-0.5 code = 706) ALKALINE PHOSPHATASE (BEAKER) (test 164 U/L 40-150 H code = 346) AST (SGOT) (BEAKER) (test code = 76 U/L 5-34 H 353) ALT (SGPT) (BEAKER) (test code = 34 U/L 6-55 347) CALCIUM, [id number] 06:00:00 Test Item Value Reference Range Interpretation Comments CALCIUM IONIZED (BEAKER) (test 0.93 mmol/L 1.12-1.27 L code = 698) PH, BLOOD (BEAKER) (test code = 7.52 1810) URINALYSIS W/ [id number] 18:32:00 Test Item Value Reference Range Interpretation Comments COLOR (BEAKER) (test code = Light Yellow 470) CLARITY (BEAKER) (test code = Clear 469) SPECIFIC GRAVITY UA (BEAKER) 1.006 1.001-1.035 (test code = 468) PH UA (BEAKER) (test code = 7.0 5.0-8.0 467) PROTEIN UA (BEAKER) (test code Negative Negative = 464) GLUCOSE UA (BEAKER) (test code Negative Negative = 365) KETONES UA (BEAKER) (test code Negative Negative = 371) BILIRUBIN UA (BEAKER) (test Negative Negative code = 462) BLOOD UA (BEAKER) (test code = Trace Negative A 461) NITRITE UA (BEAKER) (test code Negative Negative = 465) LEUKOCYTE ESTERASE UA (BEAKER) Small Negative A (test code = 466) UROBILINOGEN UA (BEAKER) (test 0.2 mg/dL 0.2-1.0 code = 463) RBC UA (BEAKER) (test code = 1 /HPF 519) WBC UA (BEAKER) (test code = 7 /HPF 520) BACTERIA (BEAKER) (test code = Rare 517) MUCUS (BEAKER) (test code = Rare 1574) SQUAMOUS EPITHELIAL (BEAKER) 4 /HPF (test code = 516) SOURCE(BEAKER) (test code = Urine, Voided 8801) CALCIUM, [id number] 07:19:00 Test Item Value Reference Range Interpretation Comments CALCIUM IONIZED (BEAKER) (test 1.03 mmol/L 1.12-1.27 L code = 698) PH, BLOOD (BEAKER) (test code = 7.40 1810) CBC W/PLT COUNT & AUTO [id number] 06:26:00 Test Item Value Reference Range Interpretation Comments WHITE BLOOD CELL COUNT (BEAKER) 18.5 K/ L 3.5-10.5 H (test code = 775) RED BLOOD CELL COUNT (BEAKER) 2.02 M/ L 3.93-5.22 L (test code = 761) HEMOGLOBIN (BEAKER) (test code = 6.0 GM/DL 11.2-15.7 LL 410) HEMATOCRIT (BEAKER) (test code = 18.5 % 34.1-44.9 L 411) MEAN CORPUSCULAR VOLUME (BEAKER) 91.6 fL 79.4-94.8 (test code = 753) MEAN CORPUSCULAR HEMOGLOBIN 29.7 pg 25.6-32.2 (BEAKER) (test code = 751) MEAN CORPUSCULAR HEMOGLOBIN CONC 32.4 GM/DL 32.2-35.5 (BEAKER) (test code = 752) RED CELL DISTRIBUTION WIDTH 21.9 % 11.7-14.4 H (BEAKER) (test code = 412) PLATELET COUNT (BEAKER) (test 337 K/CU MM 150-450 code = 756) MEAN PLATELET VOLUME (BEAKER) 11.7 fL 9.4-12.3 (test code = 754) NUCLEATED RED BLOOD CELLS 4 /100 WBC 0-0 H (BEAKER) (test code = 413) NEUTROPHILS RELATIVE PERCENT 76 % (BEAKER) (test code = 429) LYMPHOCYTES RELATIVE PERCENT 16 % (BEAKER) (test code = 430) MONOCYTES RELATIVE PERCENT 6 % (BEAKER) (test code = 431) EOSINOPHILS RELATIVE PERCENT 1 % (BEAKER) (test code = 432) BASOPHILS RELATIVE PERCENT 0 % (BEAKER) (test code = 437) NEUTROPHILS ABSOLUTE COUNT 13.98 K/ L 1.56-6.13 H (BEAKER) (test code = 670) LYMPHOCYTES ABSOLUTE COUNT 3.02 K/ L 1.18-3.74 (BEAKER) (test code = 414) MONOCYTES ABSOLUTE COUNT (BEAKER) 1.13 K/ L 0.24-0.36 H (test code = 415) EOSINOPHILS ABSOLUTE COUNT 0.09 K/ L 0.04-0.36 (BEAKER) (test code = 416) BASOPHILS ABSOLUTE COUNT (BEAKER) 0.05 K/ L 0.01-0.08 (test code = 417) IMMATURE GRANULOCYTES-RELATIVE 1 % 0-1 PERCENT (BEAKER) (test code = 2801) [id number] 06:21:00 Test Item Value Reference Range Interpretation Comments PHOSPHORUS (BEAKER) (test code = 4.3 mg/dL 2.3-4.7 604) [id number] 06:21:00 Test Item Value Reference Range Interpretation Comments MAGNESIUM (BEAKER) (test code = 2.1 mg/dL 1.6-2.6 627) BASIC METABOLIC [id number] 06:21:00 Test Item Value Reference Range Interpretation Comments SODIUM (BEAKER) 139 meq/L 136-145 (test code = 381) POTASSIUM (BEAKER) 4.0 meq/L 3.5-5.1 (test code = 379) CHLORIDE (BEAKER) 99 meq/L 98-107 (test code = 382) CO2 (BEAKER) (test 31 meq/L 22-29 H code = 355) BLOOD UREA NITROGEN 23 mg/dL 7-21 H (BEAKER) (test code = 354) CREATININE (BEAKER) 1.29 mg/dL 0.57-1.25 H (test code = 358) GLUCOSE RANDOM 116 mg/dL 70-105 H (BEAKER) (test code = 652) CALCIUM (BEAKER) 8.8 mg/dL 8.4-10.2 (test code = 697) EGFR (BEAKER) (test 56 mL/min/1.73 ESTIMA DUNCAN GFR IS code = 1092) sq m NOT ACCURATE CREATININE CLEARANCE IN PREDICTING GLOMERULAR FILTRATION RATE . ESTIMATED GFR I S NOT APPLICABLE FOR DIALYSIS PATIEN TS. B-TYPE NATRIURETIC FACTOR (BNP)2017-11-13 07:27:00 Test Item Value Reference Range Interpretation Comments B-TYPE NATRIURETIC PEPTIDE (BEAKER) 166 pg/mL 0-100 H (test code = 700) [id number] 07:26:00 Test Item Value Reference Range Interpretation Comments PHOSPHORUS (BEAKER) (test code = 4.6 mg/dL 2.3-4.7 604) [id number] 07:26:00 Test Item Value Reference Range Interpretation Comments MAGNESIUM (BEAKER) (test code = 1.6 mg/dL 1.6-2.6 627) BASIC METABOLIC [id number] 07:26:00 Test Item Value Reference Range Interpretation Comments SODIUM (BEAKER) 139 meq/L 136-145 (test code = 381) POTASSIUM (BEAKER) 3.5 meq/L 3.5-5.1 (test code = 379) CHLORIDE (BEAKER) 101 meq/L 98-107 (test code = 382) CO2 (BEAKER) (test 32 meq/L 22-29 H code = 355) BLOOD UREA NITROGEN 14 mg/dL 7-21 (BEAKER) (test code = 354) CREATININE (BEAKER) 1.09 mg/dL 0.57-1.25 (test code = 358) GLUCOSE RANDOM 92 mg/dL 70-105 (BEAKER) (test code = 652) CALCIUM (BEAKER) 8.5 mg/dL 8.4-10.2 (test code = 697) EGFR (BEAKER) (test 68 mL/min/1.73 ESTIMA DUNCAN GFR IS code = 1092) sq m NOT ACCURATE CREATININE CLEARANCE IN PREDICTING GLOMERULAR FILTRATION RATE . ESTIMATED GFR I S NOT APPLICABLE FOR DIALYSIS PATIEN TS. CBC W/PLT COUNT & AUTO [id number] 07:23:00 Test Item Value Reference Range Interpretation Comments WHITE BLOOD CELL COUNT (BEAKER) 18.4 K/ L 3.5-10.5 H (test code = 775) RED BLOOD CELL COUNT (BEAKER) 2.03 M/ L 3.93-5.22 L (test code = 761) HEMOGLOBIN (BEAKER) (test code = 6.0 GM/DL 11.2-15.7 LL 410) HEMATOCRIT (BEAKER) (test code = 18.8 % 34.1-44.9 L 411) MEAN CORPUSCULAR VOLUME (BEAKER) 92.6 fL 79.4-94.8 (test code = 753) MEAN CORPUSCULAR HEMOGLOBIN 29.6 pg 25.6-32.2 (BEAKER) (test code = 751) MEAN CORPUSCULAR HEMOGLOBIN CONC 31.9 GM/DL 32.2-35.5 L (BEAKER) (test code = 752) RED CELL DISTRIBUTION WIDTH 22.9 % 11.7-14.4 H (BEAKER) (test code = 412) PLATELET COUNT (BEAKER) (test 302 K/CU MM 150-450 code = 756) MEAN PLATELET VOLUME (BEAKER) 11.3 fL 9.4-12.3 (test code = 754) NUCLEATED RED BLOOD CELLS 7 /100 WBC 0-0 H (BEAKER) (test code = 413) NEUTROPHILS RELATIVE PERCENT 74 % (BEAKER) (test code = 429) LYMPHOCYTES RELATIVE PERCENT 18 % (BEAKER) (test code = 430) MONOCYTES RELATIVE PERCENT 7 % (BEAKER) (test code = 431) EOSINOPHILS RELATIVE PERCENT 0 % (BEAKER) (test code = 432) BASOPHILS RELATIVE PERCENT 0 % (BEAKER) (test code = 437) NEUTROPHILS ABSOLUTE COUNT 13.58 K/ L 1.56-6.13 H (BEAKER) (test code = 670) LYMPHOCYTES ABSOLUTE COUNT 3.24 K/ L 1.18-3.74 (BEAKER) (test code = 414) MONOCYTES ABSOLUTE COUNT (BEAKER) 1.23 K/ L 0.24-0.36 H (test code = 415) EOSINOPHILS ABSOLUTE COUNT 0.07 K/ L 0.04-0.36 (BEAKER) (test code = 416) BASOPHILS ABSOLUTE COUNT (BEAKER) 0.05 K/ L 0.01-0.08 (test code = 417) IMMATURE GRANULOCYTES-RELATIVE 1 % 0-1 PERCENT (BEAKER) (test code = 2801) CALCIUM, [id number] 07:08:00 Test Item Value Reference Range Interpretation Comments CALCIUM IONIZED (BEAKER) (test 1.03 mmol/L 1.12-1.27 L code = 698) PH, BLOOD (BEAKER) (test code = 7.38 1810) CBC W/PLT COUNT & AUTO [id number] 08:23:00 Test Item Value Reference Range Interpretation Comments WHITE BLOOD CELL COUNT (BEAKER) 20.4 K/ L 3.5-10.5 H (test code = 775) RED BLOOD CELL COUNT (BEAKER) 2.08 M/ L 3.93-5.22 L (test code = 761) HEMOGLOBIN (BEAKER) (test code = 6.4 GM/DL 11.2-15.7 L 410) HEMATOCRIT (BEAKER) (test code = 19.7 % 34.1-44.9 L 411) MEAN CORPUSCULAR VOLUME (BEAKER) 94.7 fL 79.4-94.8 (test code = 753) MEAN CORPUSCULAR HEMOGLOBIN 30.8 pg 25.6-32.2 (BEAKER) (test code = 751) MEAN CORPUSCULAR HEMOGLOBIN CONC 32.5 GM/DL 32.2-35.5 (BEAKER) (test code = 752) RED CELL DISTRIBUTION WIDTH 24.3 % 11.7-14.4 H (BEAKER) (test code = 412) PLATELET COUNT (BEAKER) (test 290 K/CU MM 150-450 code = 756) MEAN PLATELET VOLUME (BEAKER) 11.5 fL 9.4-12.3 (test code = 754) NUCLEATED RED BLOOD CELLS 19 /100 WBC 0-0 H (BEAKER) (test code = 413) NEUTROPHILS RELATIVE PERCENT 75 % (BEAKER) (test code = 429) LYMPHOCYTES RELATIVE PERCENT 16 % (BEAKER) (test code = 430) MONOCYTES RELATIVE PERCENT 8 % (BEAKER) (test code = 431) EOSINOPHILS RELATIVE PERCENT 0 % (BEAKER) (test code = 432) BASOPHILS RELATIVE PERCENT 0 % (BEAKER) (test code = 437) NEUTROPHILS ABSOLUTE COUNT 15.32 K/ L 1.56-6.13 H (BEAKER) (test code = 670) LYMPHOCYTES ABSOLUTE COUNT 3.24 K/ L 1.18-3.74 (BEAKER) (test code = 414) MONOCYTES ABSOLUTE COUNT (BEAKER) 1.61 K/ L 0.24-0.36 H (test code = 415) EOSINOPHILS ABSOLUTE COUNT 0.05 K/ L 0.04-0.36 (BEAKER) (test code = 416) BASOPHILS ABSOLUTE COUNT (BEAKER) 0.04 K/ L 0.01-0.08 (test code = 417) IMMATURE GRANULOCYTES-RELATIVE 0 % 0-1 PERCENT (BEAKER) (test code = 2801) (MANUAL DIFFERENTIAL)2017-11-12 08:23:00 Test Item Value Reference Range Interpretation Comments TOTAL COUNTED (BEAKER) (test code = 1351) WBC MORPHOLOGY (BEAKER) (test code = Normal 487) LARGE PLT(BEAKER) (test code = 2156) Present HYPOCHROMIA (BEAKER) (test code = 1+ few 963) POLYCHROMATOPHILLIC RBCS(BEAKER) 1+ few (test code = 478) SICKLE CELLS (BEAKER) (test code = 1+ few 767) TARGET CELLS (BEAKER) (test code = 1+ few 480) [id number] 08:11:00 Test Item Value Reference Range Interpretation Comments PHOSPHORUS (BEAKER) (test code = 4.3 mg/dL 2.3-4.7 604) [id number] 08:11:00 Test Item Value Reference Range Interpretation Comments MAGNESIUM (BEAKER) (test code = 1.3 mg/dL 1.6-2.6 L 627) BASIC METABOLIC [id number] 08:11:00 Test Item Value Reference Range Interpretation Comments SODIUM (BEAKER) 140 meq/L 136-145 (test code = 381) POTASSIUM (BEAKER) 3.4 meq/L 3.5-5.1 L (test code = 379) CHLORIDE (BEAKER) 103 meq/L 98-107 (test code = 382) CO2 (BEAKER) (test 27 meq/L 22-29 code = 355) BLOOD UREA NITROGEN 15 mg/dL 7-21 (BEAKER) (test code = 354) CREATININE (BEAKER) 1.10 mg/dL 0.57-1.25 (test code = 358) GLUCOSE RANDOM 91 mg/dL 70-105 (BEAKER) (test code = 652) CALCIUM (BEAKER) 8.5 mg/dL 8.4-10.2 (test code = 697) EGFR (BEAKER) (test 67 mL/min/1.73 ESTIMA DUNCAN GFR IS code = 1092) sq m NOT ACCURATE CREATININE CLEARANCE IN PREDICTING GLOMERULAR FILTRATION RATE . ESTIMATED GFR I S NOT APPLICABLE FOR DIALYSIS PATIEN TS. CALCIUM, [id number] 07:19:00 Test Item Value Reference Range Interpretation Comments CALCIUM IONIZED (BEAKER) (test 0.98 mmol/L 1.12-1.27 L code = 698) PH, BLOOD (BEAKER) (test code = 7.39 1810) BLOOD [id number] 00:00:00 Test Item Value Reference Range Interpretation Comments CULTURE (BEAKER) (test No growth in 5 days code = 1095) CBC W/PLT COUNT & AUTO [id number] 13:18:00 Test Item Value Reference Range Interpretation Comments WHITE BLOOD CELL COUNT (BEAKER) 20.7 K/ L 3.5-10.5 H (test code = 775) RED BLOOD CELL COUNT (BEAKER) 2.12 M/ L 3.93-5.22 L (test code = 761) HEMOGLOBIN (BEAKER) (test code = 6.7 GM/DL 11.2-15.7 L 410) HEMATOCRIT (BEAKER) (test code = 20.4 % 34.1-44.9 L 411) MEAN CORPUSCULAR VOLUME (BEAKER) 96.2 fL 79.4-94.8 H (test code = 753) MEAN CORPUSCULAR HEMOGLOBIN 31.6 pg 25.6-32.2 (BEAKER) (test code = 751) MEAN CORPUSCULAR HEMOGLOBIN CONC 32.8 GM/DL 32.2-35.5 (BEAKER) (test code = 752) RED CELL DISTRIBUTION WIDTH 25.9 % 11.7-14.4 H (BEAKER) (test code = 412) PLATELET COUNT (BEAKER) (test 262 K/CU MM 150-450 code = 756) MEAN PLATELET VOLUME (BEAKER) 11.2 fL 9.4-12.3 (test code = 754) NUCLEATED RED BLOOD CELLS 40 /100 WBC 0-0 H (BEAKER) (test code = 413) NEUTROPHILS RELATIVE PERCENT 76 % (BEAKER) (test code = 429) LYMPHOCYTES RELATIVE PERCENT 16 % (BEAKER) (test code = 430) MONOCYTES RELATIVE PERCENT 8 % (BEAKER) (test code = 431) EOSINOPHILS RELATIVE PERCENT 0 % (BEAKER) (test code = 432) BASOPHILS RELATIVE PERCENT 0 % (BEAKER) (test code = 437) NEUTROPHILS ABSOLUTE COUNT 15.60 K/ L 1.56-6.13 H (BEAKER) (test code = 670) LYMPHOCYTES ABSOLUTE COUNT 3.23 K/ L 1.18-3.74 (BEAKER) (test code = 414) MONOCYTES ABSOLUTE COUNT (BEAKER) 1.54 K/ L 0.24-0.36 H (test code = 415) EOSINOPHILS ABSOLUTE COUNT 0.02 K/ L 0.04-0.36 L (BEAKER) (test code = 416) BASOPHILS ABSOLUTE COUNT (BEAKER) 0.05 K/ L 0.01-0.08 (test code = 417) IMMATURE GRANULOCYTES-RELATIVE 1 % 0-1 PERCENT (BEAKER) (test code = 2801) (MANUAL DIFFERENTIAL)2017-11-11 13:18:00 Test Item Value Reference Range Interpretation Comments TOTAL COUNTED (BEAKER) (test code = 1351) WBC MORPHOLOGY (BEAKER) (test code = Normal 487) LARGE PLT(BEAKER) (test code = 2156) Present POLYCHROMATOPHILLIC RBCS(BEAKER) 1+ few (test code = 478) SICKLE CELLS (BEAKER) (test code = 1+ few 767) TARGET CELLS (BEAKER) (test code = 1+ few 480) [id number] 08:05:00 Test Item Value Reference Range Interpretation Comments PHOSPHORUS (BEAKER) (test code = 5.0 mg/dL 2.3-4.7 H 604) [id number] 08:05:00 Test Item Value Reference Range Interpretation Comments MAGNESIUM (BEAKER) (test code = 1.6 mg/dL 1.6-2.6 627) BASIC METABOLIC [id number] 08:05:00 Test Item Value Reference Range Interpretation Comments SODIUM (BEAKER) 140 meq/L 136-145 (test code = 381) POTASSIUM (BEAKER) 3.7 meq/L 3.5-5.1 (test code = 379) CHLORIDE (BEAKER) 107 meq/L 98-107 (test code = 382) CO2 (BEAKER) (test 24 meq/L 22-29 code = 355) BLOOD UREA NITROGEN 19 mg/dL 7-21 (BEAKER) (test code = 354) CREATININE (BEAKER) 1.23 mg/dL 0.57-1.25 (test code = 358) GLUCOSE RANDOM 96 mg/dL 70-105 (BEAKER) (test code = 652) CALCIUM (BEAKER) 8.5 mg/dL 8.4-10.2 (test code = 697) EGFR (BEAKER) (test 59 mL/min/1.73 ESTIMA DUNCAN GFR IS code = 1092) sq m NOT ACCURATE CREATININE CLEARANCE IN PREDICTING GLOMERULAR FILTRATION RATE . ESTIMATED GFR I S NOT APPLICABLE FOR DIALYSIS PATIEN TS. CALCIUM, [id number] 06:38:00 Test Item Value Reference Range Interpretation Comments CALCIUM IONIZED (BEAKER) (test 1.07 mmol/L 1.12-1.27 L code = 698) PH, BLOOD (BEAKER) (test code = 7.31 1810) CBC W/PLT COUNT & AUTO [id number] 14:53:00 Test Item Value Reference Range Interpretation Comments WHITE BLOOD CELL COUNT (BEAKER) 21.8 K/ L 3.5-10.5 H (test code = 775) RED BLOOD CELL COUNT (BEAKER) 2.17 M/ L 3.93-5.22 L (test code = 761) HEMOGLOBIN (BEAKER) (test code = 6.8 GM/DL 11.2-15.7 L 410) HEMATOCRIT (BEAKER) (test code = 21.3 % 34.1-44.9 L 411) MEAN CORPUSCULAR VOLUME (BEAKER) 98.2 fL 79.4-94.8 H (test code = 753) MEAN CORPUSCULAR HEMOGLOBIN 31.3 pg 25.6-32.2 (BEAKER) (test code = 751) MEAN CORPUSCULAR HEMOGLOBIN CONC 31.9 GM/DL 32.2-35.5 L (BEAKER) (test code = 752) RED CELL DISTRIBUTION WIDTH 27.6 % 11.7-14.4 H (BEAKER) (test code = 412) PLATELET COUNT (BEAKER) (test 244 K/CU MM 150-450 code = 756) MEAN PLATELET VOLUME (BEAKER) 11.4 fL 9.4-12.3 (test code = 754) NUCLEATED RED BLOOD CELLS 80 /100 WBC 0-0 H (BEAKER) (test code = 413) NEUTROPHILS RELATIVE PERCENT 82 % (BEAKER) (test code = 429) LYMPHOCYTES RELATIVE PERCENT 7 % (BEAKER) (test code = 430) MONOCYTES RELATIVE PERCENT 10 % (BEAKER) (test code = 431) EOSINOPHILS RELATIVE PERCENT 0 % (BEAKER) (test code = 432) BASOPHILS RELATIVE PERCENT 0 % (BEAKER) (test code = 437) NEUTROPHILS ABSOLUTE COUNT 17.85 K/ L 1.56-6.13 H (BEAKER) (test code = 670) LYMPHOCYTES ABSOLUTE COUNT 1.60 K/ L 1.18-3.74 (BEAKER) (test code = 414) MONOCYTES ABSOLUTE COUNT (BEAKER) 2.14 K/ L 0.24-0.36 H (test code = 415) EOSINOPHILS ABSOLUTE COUNT 0.03 K/ L 0.04-0.36 L (BEAKER) (test code = 416) BASOPHILS ABSOLUTE COUNT (BEAKER) 0.03 K/ L 0.01-0.08 (test code = 417) IMMATURE GRANULOCYTES-RELATIVE 1 % 0-1 PERCENT (BEAKER) (test code = 2801) (MANUAL DIFFERENTIAL)2017-11-10 14:53:00 Test Item Value Reference Range Interpretation Comments TOTAL COUNTED (BEAKER) (test code = 1351) WBC MORPHOLOGY (BEAKER) (test Normal code = 487) LARGE PLT(BEAKER) (test code = Present 2156) SCHISTOCYTES (BEAKER) (test code 1+ few = 765) ACANTHOCYTES (BEAKER) (test code 1+ few = 471) ANISOCYTOSIS (BEAKER) (test code 2+ moderate = 961) HYPOCHROMIA (BEAKER) (test code = 2+ moderate 963) MACROCYTES (BEAKER) (test code = 3+ many 964) MICROCYTES (BEAKER) (test code = 2+ moderate 965) OVALOCYTES (BEAKER) (test code = 1+ few 477) POIKILOCYTES (BEAKER) (test code 3+ many = 966) POLYCHROMATOPHILLIC RBCS(BEAKER) 2+ moderate (test code = 478) SICKLE CELLS (BEAKER) (test code 2+ moderate = 767) TARGET CELLS (BEAKER) (test code 1+ few = 480) BASIC METABOLIC [id number] 08:54:00 Test Item Value Reference Range Interpretation Comments SODIUM (BEAKER) 140 meq/L 136-145 (test code = 381) POTASSIUM (BEAKER) 4.0 meq/L 3.5-5.1 (test code = 379) CHLORIDE (BEAKER) 109 meq/L 98-107 H (test code = 382) CO2 (BEAKER) (test 19 meq/L 22-29 L code = 355) BLOOD UREA NITROGEN 21 mg/dL 7-21 (BEAKER) (test code = 354) CREATININE (BEAKER) 1.27 mg/dL 0.57-1.25 H (test code = 358) GLUCOSE RANDOM 122 mg/dL 70-105 H (BEAKER) (test code = 652) CALCIUM (BEAKER) 8.6 mg/dL 8.4-10.2 (test code = 697) EGFR (BEAKER) (test 57 mL/min/1.73 ESTIMA DUNCAN GFR IS code = 1092) sq m NOT ACCURATE CREATININE CLEARANCE IN PREDICTING GLOMERULAR FILTRATION RATE . ESTIMATED GFR I S NOT APPLICABLE FOR DIALYSIS PATIEN TS. [id number] 08:54:00 Test Item Value Reference Range Interpretation Comments MAGNESIUM (BEAKER) (test code = 1.5 mg/dL 1.6-2.6 L 627) [id number] 08:54:00 Test Item Value Reference Range Interpretation Comments PHOSPHORUS (BEAKER) (test code = 4.5 mg/dL 2.3-4.7 604) COMPREHENSIVE METABOLIC [id number] 08:54:00 Test Item Value Reference Range Interpretation Comments TOTAL PROTEIN 8.2 gm/dL 6.0-8.3 (BEAKER) (test code = 770) ALBUMIN (BEAKER) 3.1 g/dL 3.5-5.0 L (test code = 1145) ALKALINE PHOSPHATASE 154 U/L 40-150 H (BEAKER) (test code = 346) BILIRUBIN TOTAL 1.4 mg/dL 0.2-1.2 H (BEAKER) (test code = 377) SODIUM (BEAKER) (test 140 meq/L 136-145 code = 381) POTASSIUM (BEAKER) 4.0 meq/L 3.5-5.1 (test code = 379) CHLORIDE (BEAKER) 109 meq/L 98-107 H (test code = 382) CO2 (BEAKER) (test 19 meq/L 22-29 L code = 355) BLOOD UREA NITROGEN 21 mg/dL 7-21 (BEAKER) (test code = 354) CREATININE (BEAKER) 1.27 mg/dL 0.57-1.25 H (test code = 358) GLUCOSE RANDOM 122 mg/dL 70-105 H (BEAKER) (test code = 652) CALCIUM (BEAKER) 8.6 mg/dL 8.4-10.2 (test code = 697) AST (SGOT) (BEAKER) 72 U/L 5-34 H (test code = 353) ALT (SGPT) (BEAKER) 50 U/L 6-55 (test code = 347) EGFR (BEAKER) (test 57 mL/min/1.73 ESTIMA DUNCAN GFR IS code = 1092) sq m NOT ACCURATE CREATININE CLEARANCE IN PREDICTING GLOMERULAR FILTRATION RATE . ESTIMATED GFR I S NOT APPLICABLE FOR DIALYSIS PATIEN TS. CALCIUM, [id number] 07:21:00 Test Item Value Reference Range Interpretation Comments CALCIUM IONIZED (BEAKER) (test 1.04 mmol/L 1.12-1.27 L code = 698) PH, BLOOD (BEAKER) (test code = 7.39 1810) CBC W/PLT COUNT & AUTO [id number] 12:10:00 Test Item Value Reference Range Interpretation Comments WHITE BLOOD CELL COUNT (BEAKER) 20.8 K/ L 3.5-10.5 H (test code = 775) RED BLOOD CELL COUNT (BEAKER) 2.11 M/ L 3.93-5.22 L (test code = 761) HEMOGLOBIN (BEAKER) (test code = 6.6 GM/DL 11.2-15.7 L 410) HEMATOCRIT (BEAKER) (test code = 20.4 % 34.1-44.9 L 411) MEAN CORPUSCULAR VOLUME (BEAKER) 96.7 fL 79.4-94.8 H (test code = 753) MEAN CORPUSCULAR HEMOGLOBIN 31.3 pg 25.6-32.2 (BEAKER) (test code = 751) MEAN CORPUSCULAR HEMOGLOBIN CONC 32.4 GM/DL 32.2-35.5 (BEAKER) (test code = 752) RED CELL DISTRIBUTION WIDTH 27.2 % 11.7-14.4 H (BEAKER) (test code = 412) PLATELET COUNT (BEAKER) (test 237 K/CU MM 150-450 code = 756) MEAN PLATELET VOLUME (BEAKER) 10.7 fL 9.4-12.3 (test code = 754) NUCLEATED RED BLOOD CELLS 98 /100 WBC 0-0 H (BEAKER) (test code = 413) NEUTROPHILS RELATIVE PERCENT 82 % (BEAKER) (test code = 429) LYMPHOCYTES RELATIVE PERCENT 6 % (BEAKER) (test code = 430) MONOCYTES RELATIVE PERCENT 11 % (BEAKER) (test code = 431) EOSINOPHILS RELATIVE PERCENT 0 % (BEAKER) (test code = 432) BASOPHILS RELATIVE PERCENT 0 % (BEAKER) (test code = 437) NEUTROPHILS ABSOLUTE COUNT 16.91 K/ L 1.56-6.13 H (BEAKER) (test code = 670) LYMPHOCYTES ABSOLUTE COUNT 1.31 K/ L 1.18-3.74 (BEAKER) (test code = 414) MONOCYTES ABSOLUTE COUNT (BEAKER) 2.37 K/ L 0.24-0.36 H (test code = 415) EOSINOPHILS ABSOLUTE COUNT 0.01 K/ L 0.04-0.36 L (BEAKER) (test code = 416) BASOPHILS ABSOLUTE COUNT (BEAKER) 0.05 K/ L 0.01-0.08 (test code = 417) IMMATURE GRANULOCYTES-RELATIVE 1 % 0-1 PERCENT (BEAKER) (test code = 2801) (MANUAL DIFFERENTIAL)2017-11-09 12:10:00 Test Item Value Reference Range Interpretation Comments TOTAL COUNTED (BEAKER) (test code = 1351) WBC MORPHOLOGY (BEAKER) (test Normal code = 487) PLT MORPHOLOGY (BEAKER) (test Normal code = 486) ANISOCYTOSIS (BEAKER) (test code 2+ moderate = 961) MATTHEWS-JOLLY BODIES (BEAKER) 1+ few (test code = 475) POIKILOCYTES (BEAKER) (test code 2+ moderate = 966) POLYCHROMATOPHILLIC RBCS(BEAKER) 1+ few (test code = 478) SICKLE CELLS (BEAKER) (test code 2+ moderate = 767) TARGET CELLS (BEAKER) (test code 1+ few = 480) CALCIUM, [id number] 07:44:00 Test Item Value Reference Range Interpretation Comments CALCIUM IONIZED (BEAKER) (test 1.16 mmol/L 1.12-1.27 code = 698) PH, BLOOD (BEAKER) (test code = 7.25 1810) B-TYPE NATRIURETIC FACTOR (BNP)2017-11-09 07:43:00 Test Item Value Reference Range Interpretation Comments B-TYPE NATRIURETIC PEPTIDE (BEAKER) 903 pg/mL 0-100 H (test code = 700) [id number] 07:27:00 Test Item Value Reference Range Interpretation Comments PHOSPHORUS (BEAKER) (test code = 4.4 mg/dL 2.3-4.7 604) [id number] 07:27:00 Test Item Value Reference Range Interpretation Comments MAGNESIUM (BEAKER) (test code = 1.7 mg/dL 1.6-2.6 627) COMPREHENSIVE METABOLIC [id number] 07:27:00 Test Item Value Reference Range Interpretation Comments TOTAL PROTEIN 7.8 gm/dL 6.0-8.3 (BEAKER) (test code = 770) ALBUMIN (BEAKER) 3.2 g/dL 3.5-5.0 L (test code = 1145) ALKALINE PHOSPHATASE 165 U/L 40-150 H (BEAKER) (test code = 346) BILIRUBIN TOTAL 1.3 mg/dL 0.2-1.2 H (BEAKER) (test code = 377) SODIUM (BEAKER) (test 143 meq/L 136-145 code = 381) POTASSIUM (BEAKER) 4.2 meq/L 3.5-5.1 (test code = 379) CHLORIDE (BEAKER) 112 meq/L 98-107 H (test code = 382) CO2 (BEAKER) (test 23 meq/L 22-29 code = 355) BLOOD UREA NITROGEN 29 mg/dL 7-21 H (BEAKER) (test code = 354) CREATININE (BEAKER) 1.54 mg/dL 0.57-1.25 H (test code = 358) GLUCOSE RANDOM 108 mg/dL 70-105 H (BEAKER) (test code = 652) CALCIUM (BEAKER) 9.1 mg/dL 8.4-10.2 (test code = 697) AST (SGOT) (BEAKER) 110 U/L 5-34 H (test code = 353) ALT (SGPT) (BEAKER) 64 U/L 6-55 H (test code = 347) EGFR (BEAKER) (test 46 mL/min/1.73 ESTIMA DUNCAN GFR IS code = 1092) sq m NOT ACCURATE CREATININE CLEARANCE IN PREDICTING GLOMERULAR FILTRATION RATE . ESTIMATED GFR I S NOT APPLICABLE FOR DIALYSIS PATIEN TS. BASIC METABOLIC [id number] 07:27:00 Test Item Value Reference Range Interpretation Comments SODIUM (BEAKER) 143 meq/L 136-145 (test code = 381) POTASSIUM (BEAKER) 4.2 meq/L 3.5-5.1 (test code = 379) CHLORIDE (BEAKER) 112 meq/L 98-107 H (test code = 382) CO2 (BEAKER) (test 23 meq/L 22-29 code = 355) BLOOD UREA NITROGEN 29 mg/dL 7-21 H (BEAKER) (test code = 354) CREATININE (BEAKER) 1.54 mg/dL 0.57-1.25 H (test code = 358) GLUCOSE RANDOM 108 mg/dL 70-105 H (BEAKER) (test code = 652) CALCIUM (BEAKER) 9.1 mg/dL 8.4-10.2 (test code = 697) EGFR (BEAKER) (test 46 mL/min/1.73 ESTIMA DUNCAN GFR IS code = 1092) sq m NOT ACCURATE CREATININE CLEARANCE IN PREDICTING GLOMERULAR FILTRATION RATE . ESTIMATED GFR I S NOT APPLICABLE FOR DIALYSIS PATIEN TS. RAD, CHEST, 1 VIEW, NON [id number] 20:41:00Reason for exam:->edemaShould this be performed at [...] of findings concerning for fluid overload/heart failure. Signed:Kasi Muhammadeport Verified Date/Time: 11/08/2017 20:41:24 Reading Location: [address] Reading Room EOSINOPHIL SMEAR, [id number] 12:49:00 Test Item Value Reference Range Interpretation Comments EOSINOPHIL SMEAR, URINE (BEAKER) No EOS seen No EOS seen (test code = 1851) CBC W/PLT COUNT & AUTO [id number] 10:40:00 Test Item Value Reference Range Interpretation Comments WHITE BLOOD CELL COUNT (BEAKER) 18.6 K/ L 3.5-10.5 H (test code = 775) RED BLOOD CELL COUNT (BEAKER) 2.21 M/ L 3.93-5.22 L (test code = 761) HEMOGLOBIN (BEAKER) (test code = 6.8 GM/DL 11.2-15.7 L 410) HEMATOCRIT (BEAKER) (test code = 20.6 % 34.1-44.9 L 411) MEAN CORPUSCULAR VOLUME (BEAKER) 93.2 fL 79.4-94.8 (test code = 753) MEAN CORPUSCULAR HEMOGLOBIN 30.8 pg 25.6-32.2 (BEAKER) (test code = 751) MEAN CORPUSCULAR HEMOGLOBIN CONC 33.0 GM/DL 32.2-35.5 (BEAKER) (test code = 752) RED CELL DISTRIBUTION WIDTH 25.5 % 11.7-14.4 H (BEAKER) (test code = 412) PLATELET COUNT (BEAKER) (test 255 K/CU MM 150-450 code = 756) MEAN PLATELET VOLUME (BEAKER) 10.6 fL 9.4-12.3 (test code = 754) NUCLEATED RED BLOOD CELLS 87 /100 WBC 0-0 H (BEAKER) (test code = 413) NEUTROPHILS RELATIVE PERCENT 70 % (BEAKER) (test code = 429) LYMPHOCYTES RELATIVE PERCENT 14 % (BEAKER) (test code = 430) MONOCYTES RELATIVE PERCENT 14 % (BEAKER) (test code = 431) EOSINOPHILS RELATIVE PERCENT 0 % (BEAKER) (test code = 432) BASOPHILS RELATIVE PERCENT 0 % (BEAKER) (test code = 437) NEUTROPHILS ABSOLUTE COUNT 12.98 K/ L 1.56-6.13 H (BEAKER) (test code = 670) LYMPHOCYTES ABSOLUTE COUNT 2.67 K/ L 1.18-3.74 (BEAKER) (test code = 414) MONOCYTES ABSOLUTE COUNT (BEAKER) 2.65 K/ L 0.24-0.36 H (test code = 415) EOSINOPHILS ABSOLUTE COUNT 0.07 K/ L 0.04-0.36 (BEAKER) (test code = 416) BASOPHILS ABSOLUTE COUNT (BEAKER) 0.05 K/ L 0.01-0.08 (test code = 417) IMMATURE GRANULOCYTES-RELATIVE 1 % 0-1 PERCENT (BEAKER) (test code = 2801) (MANUAL DIFFERENTIAL)2017-11-08 10:40:00 Test Item Value Reference Range Interpretation Comments TOTAL COUNTED (BEAKER) (test code = 1351) WBC MORPHOLOGY (BEAKER) (test Normal code = 487) LARGE PLT(BEAKER) (test code = Present 2156) POLYCHROMATOPHILLIC RBCS(BEAKER) 2+ moderate (test code = 478) SICKLE CELLS (BEAKER) (test code 3+ many = 767) TARGET CELLS (BEAKER) (test code 1+ few = 480) CT, [id number] 08:29:00FINAL REPORT HISTORY : Abdominal pain, unspecified [...] could represent a small fluid collection. Signed: Moon Muniz MDReport Verified Date/Time: 11/08/2017 08:29:54 Reading [facility] - [id number] [id number] Electronically signed by: MOON MUNIZ M.D. 11/08/2017 08:29 AMBASIC METABOLIC [id number] 08:14:00 Test Item Value Reference Range Interpretation Comments SODIUM (BEAKER) 141 meq/L 136-145 (test code = 381) POTASSIUM (BEAKER) 4.4 meq/L 3.5-5.1 (test code = 379) CHLORIDE (BEAKER) 111 meq/L 98-107 H (test code = 382) CO2 (BEAKER) (test 17 meq/L 22-29 L code = 355) BLOOD UREA NITROGEN 37 mg/dL 7-21 H (BEAKER) (test code = 354) CREATININE (BEAKER) 2.07 mg/dL 0.57-1.25 H (test code = 358) GLUCOSE RANDOM 101 mg/dL 70-105 (BEAKER) (test code = 652) CALCIUM (BEAKER) 8.9 mg/dL 8.4-10.2 (test code = 697) EGFR (BEAKER) (test 32 mL/min/1.73 ESTIMA DUNCAN GFR IS code = 1092) sq m NOT ACCURATE CREATININE CLEARANCE IN PREDICTING GLOMERULAR FILTRATION RATE . ESTIMATED GFR I S NOT APPLICABLE FOR DIALYSIS PATIEN TS. COMPREHENSIVE METABOLIC [id number] 08:14:00 Test Item Value Reference Range Interpretation Comments TOTAL PROTEIN 8.6 gm/dL 6.0-8.3 H (BEAKER) (test code = 770) ALBUMIN (BEAKER) 3.4 g/dL 3.5-5.0 L (test code = 1145) ALKALINE PHOSPHATASE 155 U/L 40-150 H (BEAKER) (test code = 346) BILIRUBIN TOTAL 1.7 mg/dL 0.2-1.2 H (BEAKER) (test code = 377) SODIUM (BEAKER) (test 141 meq/L 136-145 code = 381) POTASSIUM (BEAKER) 4.4 meq/L 3.5-5.1 (test code = 379) CHLORIDE (BEAKER) 111 meq/L 98-107 H (test code = 382) CO2 (BEAKER) (test 17 meq/L 22-29 L code = 355) BLOOD UREA NITROGEN 37 mg/dL 7-21 H (BEAKER) (test code = 354) CREATININE (BEAKER) 2.07 mg/dL 0.57-1.25 H (test code = 358) GLUCOSE RANDOM 101 mg/dL 70-105 (BEAKER) (test code = 652) CALCIUM (BEAKER) 8.9 mg/dL 8.4-10.2 (test code = 697) AST (SGOT) (BEAKER) 144 U/L 5-34 H (test code = 353) ALT (SGPT) (BEAKER) 70 U/L 6-55 H (test code = 347) EGFR (BEAKER) (test 32 mL/min/1.73 ESTIMA DUNCAN GFR IS code = 1092) sq m NOT ACCURATE CREATININE CLEARANCE IN PREDICTING GLOMERULAR FILTRATION RATE . ESTIMATED GFR I S NOT APPLICABLE FOR DIALYSIS PATIEN TS. PROTEIN, RANDOM [id number] 07:49:00 Test Item Value Reference Range Interpretation Comments PROTEIN, URINE (BEAKER) (test code = 24 mg/dL 0-14 H 1569) CREATININE, RANDOM [id number] 07:47:00 Test Item Value Reference Range Interpretation Comments CREATININE URINE (BEAKER) (test 46.0 mg/dL code = 375) Reference Range: No NormalsSODIUM, RANDOM [id number] 07:47:00 Test Item Value Reference Range Interpretation Comments SODIUM URINE (BEAKER) (test code = 65 meq/L 243) Reference Range: No NormalsU/S, ABDOMINAL, [id number] 19:58:00Reason for exam:->GRAYSON, abdominal painShould this be [...] MDReport Verified Date/Time: 11/07/2017 19:58:17 Reading Location: [facility] [id number] Consult Reading Room LACTIC ACID, VENOUS, WHOLE [id number] 16:11:00 Test Item Value Reference Range Interpretation Comments LACTATE BLOOD VENOUS 0.9 mmol/L 0.5-2.2 Specime n slightly (2) (BEAKER) (test hemolyzed code = 2872) Effective 12/22/2015: Units/Reference Range ChangeNew: 0.5-2.2 mmol/L Previous: 5-20 mg/dLCBC W/PLT COUNT & AUTO [id number] 10:20:00 Test Item Value Reference Range Interpretation Comments WHITE BLOOD CELL COUNT (BEAKER) 23.2 K/ L 3.5-10.5 H (test code = 775) RED BLOOD CELL COUNT (BEAKER) 1.84 M/ L 3.93-5.22 L (test code = 761) HEMOGLOBIN (BEAKER) (test code = 5.8 GM/DL 11.2-15.7 LL 410) HEMATOCRIT (BEAKER) (test code = 17.3 % 34.1-44.9 L 411) MEAN CORPUSCULAR VOLUME (BEAKER) 94.0 fL 79.4-94.8 (test code = 753) MEAN CORPUSCULAR HEMOGLOBIN 31.5 pg 25.6-32.2 (BEAKER) (test code = 751) MEAN CORPUSCULAR HEMOGLOBIN CONC 33.5 GM/DL 32.2-35.5 (BEAKER) (test code = 752) RED CELL DISTRIBUTION WIDTH 24.1 % 11.7-14.4 H (BEAKER) (test code = 412) PLATELET COUNT (BEAKER) (test 249 K/CU MM 150-450 code = 756) MEAN PLATELET VOLUME (BEAKER) 10.8 fL 9.4-12.3 (test code = 754) NUCLEATED RED BLOOD CELLS 48 /100 WBC 0-0 H (BEAKER) (test code = 413) IMMATURE GRANULOCYTES-RELATIVE 2 % 0-1 H PERCENT (BEAKER) (test code = 2801) (MANUAL DIFFERENTIAL)2017-11-07 10:20:00 Test Item Value Reference Range Interpretation Comments NEUTROPHILS - REL (DIFF) (BEAKER) 68 % (test code = 1359) LYMPHOCYTES - REL (DIFF) (BEAKER) 27 % (test code = 1360) MONOCYTES - REL (DIFF) (BEAKER) 5 % (test code = 1361) EOSINOPHILS - REL (DIFF) (BEAKER) 0 % (test code = 1362) BASOPHILS - REL (DIFF) (BEAKER) 0 % (test code = 1363) NEUTROPHILS - ABS (DIFF) (BEAKER) 15.78 K/ L 1.80-8.00 H (test code = 1365) LYMPHOCYTES - ABS (DIFF) (BEAKER) 6.26 K/ L 1.48-4.50 H (test code = 1366) MONOCYTES - ABS (DIFF) (BEAKER) 1.16 K/ L 0.00-1.30 (test code = 1367) EOSINOPHILS - ABS (DIFF) (BEAKER) 0.00 K/ L 0.00-0.50 (test code = 1368) BASOPHILS - ABS (DIFF) (BEAKER) 0.00 K/ L 0.00-0.20 (test code = 1369) TOTAL COUNTED (BEAKER) (test code 100 = 1351) MANUAL NRBC PER 100 CELLS 51 /100 WBC 0-0 H (BEAKER) (test code = 1353) WBC MORPHOLOGY (BEAKER) (test Normal code = 487) PLT MORPHOLOGY (BEAKER) (test Normal code = 486) ANISOCYTOSIS (BEAKER) (test code 3+ many = 961) POLYCHROMATOPHILLIC RBCS(BEAKER) 2+ moderate (test code = 478) SICKLE CELLS (BEAKER) (test code 3+ many = 767) TARGET CELLS (BEAKER) (test code 1+ few = 480) BASIC METABOLIC [id number] 06:28:00 Test Item Value Reference Range Interpretation Comments SODIUM (BEAKER) 132 meq/L 136-145 L (test code = 381) POTASSIUM (BEAKER) 4.4 meq/L 3.5-5.1 (test code = 379) CHLORIDE (BEAKER) 109 meq/L 98-107 H (test code = 382) CO2 (BEAKER) (test 20 meq/L 22-29 L code = 355) BLOOD UREA NITROGEN 39 mg/dL 7-21 H (BEAKER) (test code = 354) CREATININE (BEAKER) 2.20 mg/dL 0.57-1.25 H (test code = 358) GLUCOSE RANDOM 123 mg/dL 70-105 H (BEAKER) (test code = 652) CALCIUM (BEAKER) 8.7 mg/dL 8.4-10.2 (test code = 697) EGFR (BEAKER) (test 30 mL/min/1.73 ESTIMA DUNCAN GFR IS code = 1092) sq m NOT ACCURATE CREATININE CLEARANCE IN PREDICTING GLOMERULAR FILTRATION RATE . ESTIMATED GFR I S NOT APPLICABLE FOR DIALYSIS PATIEN TS. COMPREHENSIVE METABOLIC [id number] 18:37:00 Test Item Value Reference Range Interpretation Comments TOTAL PROTEIN 8.5 gm/dL 6.0-8.3 H (BEAKER) (test code = 770) ALBUMIN (BEAKER) 3.4 g/dL 3.5-5.0 L (test code = 1145) ALKALINE PHOSPHATASE 166 U/L 40-150 H (BEAKER) (test code = 346) BILIRUBIN TOTAL 4.0 mg/dL 0.2-1.2 H (BEAKER) (test code = 377) SODIUM (BEAKER) (test 142 meq/L 136-145 code = 381) POTASSIUM (BEAKER) 4.7 meq/L 3.5-5.1 (test code = 379) CHLORIDE (BEAKER) 110 meq/L 98-107 H (test code = 382) CO2 (BEAKER) (test 22 meq/L 22-29 code = 355) BLOOD UREA NITROGEN 35 mg/dL 7-21 H (BEAKER) (test code = 354) CREATININE (BEAKER) 1.97 mg/dL 0.57-1.25 H (test code = 358) GLUCOSE RANDOM 119 mg/dL 70-105 H (BEAKER) (test code = 652) CALCIUM (BEAKER) 8.5 mg/dL 8.4-10.2 (test code = 697) AST (SGOT) (BEAKER) 278 U/L 5-34 H (test code = 353) ALT (SGPT) (BEAKER) 92 U/L 6-55 H (test code = 347) EGFR (BEAKER) (test 34 mL/min/1.73 ESTIMA DUNCAN GFR IS code = 1092) sq m NOT ACCURATE CREATININE CLEARANCE IN PREDICTING GLOMERULAR FILTRATION RATE . ESTIMATED GFR I S NOT APPLICABLE FOR DIALYSIS PATIEN TS. Specimen slightly ictericCBC W/PLT COUNT & AUTO [id number] 14:59:00 Test Item Value Reference Range Interpretation Comments WHITE BLOOD CELL COUNT (BEAKER) 24.3 K/ L 3.5-10.5 H (test code = 775) RED BLOOD CELL COUNT (BEAKER) 1.73 M/ L 3.93-5.22 L (test code = 761) HEMOGLOBIN (BEAKER) (test code = 5.5 GM/DL 11.2-15.7 LL 410) HEMATOCRIT (BEAKER) (test code = 16.7 % 34.1-44.9 L 411) MEAN CORPUSCULAR VOLUME (BEAKER) 96.5 fL 79.4-94.8 H (test code = 753) MEAN CORPUSCULAR HEMOGLOBIN 31.8 pg 25.6-32.2 (BEAKER) (test code = 751) MEAN CORPUSCULAR HEMOGLOBIN CONC 32.9 GM/DL 32.2-35.5 (BEAKER) (test code = 752) RED CELL DISTRIBUTION WIDTH 25.8 % 11.7-14.4 H (BEAKER) (test code = 412) PLATELET COUNT (BEAKER) (test 259 K/CU MM 150-450 code = 756) MEAN PLATELET VOLUME (BEAKER) 11.1 fL 9.4-12.3 (test code = 754) NUCLEATED RED BLOOD CELLS 29 /100 WBC 0-0 H (BEAKER) (test code = 413) IMMATURE GRANULOCYTES-RELATIVE 2 % 0-1 H PERCENT (BEAKER) (test code = 2801) (MANUAL DIFFERENTIAL)2017-11-06 14:59:00 Test Item Value Reference Range Interpretation Comments NEUTROPHILS - REL (DIFF) (BEAKER) 65 % (test code = 1359) LYMPHOCYTES - REL (DIFF) (BEAKER) 26 % (test code = 1360) MONOCYTES - REL (DIFF) (BEAKER) 8 % (test code = 1361) MYELOCYTES-REL (DIFF) (BEAKER) 1 % 0-0 H (test code = 1594) NEUTROPHILS - ABS (DIFF) (BEAKER) 15.80 K/ L 1.80-8.00 H (test code = 1365) LYMPHOCYTES - ABS (DIFF) (BEAKER) 6.32 K/ L 1.48-4.50 H (test code = 1366) MONOCYTES - ABS (DIFF) (BEAKER) 1.94 K/ L 0.00-1.30 H (test code = 1367) MYELOCYTES-ABS (DIFF) (BEAKER) 0.24 K/ L 0.00-0.00 H (test code = 1593) TOTAL COUNTED (BEAKER) (test code 100 = 1351) MANUAL NRBC PER 100 CELLS 34 /100 WBC 0-0 H (BEAKER) (test code = 1353) WBC MORPHOLOGY (BEAKER) (test Normal code = 487) PLT MORPHOLOGY (BEAKER) (test Normal code = 486) ANISOCYTOSIS (BEAKER) (test code 3+ many = 961) MATTHEWS-JOLLY BODIES (BEAKER) Present (test code = 475) POIKILOCYTES (BEAKER) (test code 1+ few = 966) POLYCHROMATOPHILLIC RBCS(BEAKER) 2+ moderate (test code = 478) SICKLE CELLS (BEAKER) (test code 3+ many = 767) BASIC METABOLIC [id number] 09:37:00 Test Item Value Reference Range Interpretation Comments SODIUM (BEAKER) 139 meq/L 136-145 (test code = 381) POTASSIUM (BEAKER) 4.5 meq/L 3.5-5.1 (test code = 379) CHLORIDE (BEAKER) 107 meq/L 98-107 (test code = 382) CO2 (BEAKER) (test 19 meq/L 22-29 L code = 355) BLOOD UREA NITROGEN 27 mg/dL 7-21 H (BEAKER) (test code = 354) CREATININE (BEAKER) 1.37 mg/dL 0.57-1.25 H (test code = 358) GLUCOSE RANDOM 124 mg/dL 70-105 H (BEAKER) (test code = 652) CALCIUM (BEAKER) 8.2 mg/dL 8.4-10.2 L (test code = 697) EGFR (BEAKER) (test 52 mL/min/1.73 ESTIMA DUNCAN GFR IS code = 1092) sq m NOT ACCURATE CREATININE CLEARANCE IN PREDICTING GLOMERULAR FILTRATION RATE . ESTIMATED GFR I S NOT APPLICABLE FOR DIALYSIS PATIEN TS. Specimen slightly ictericURINALYSIS W/ [id number] 06:22:00 Test Item Value Reference Range Interpretation Comments COLOR (BEAKER) (test code Brown = 470) CLARITY (BEAKER) (test Cloudy code = 469) SPECIFIC GRAVITY UA 1.015 1.001-1.035 (BEAKER) (test code = 468) PH UA (BEAKER) (test code 5.5 5.0-8.0 = 467) PROTEIN UA (BEAKER) (test 100 mg/dL Negative A code = 464) GLUCOSE UA (BEAKER) (test Negative Negative code = 365) KETONES UA (BEAKER) (test Negative Negative code = 371) BILIRUBIN UA (BEAKER) Positive Negative A (test code = 462) BLOOD UA (BEAKER) (test Large Negative A code = 461) NITRITE UA (BEAKER) (test Negative Negative code = 465) LEUKOCYTE ESTERASE UA Trace Negative A (BEAKER) (test code = 466) UROBILINOGEN UA (BEAKER) 4.0 mg/dL 0.2-1.0 H (test code = 463) RBC UA (BEAKER) (test code 0 /HPF = 519) WBC UA (BEAKER) (test code 27 /HPF = 520) MUCUS (BEAKER) (test code Few = 1574) SQUAMOUS EPITHELIAL 11 /HPF (BEAKER) (test code = 516) SOURCE(BEAKER) (test code Urine, Clean Catch = 2795) BASIC METABOLIC [id number] 10:56:00 Test Item Value Reference Range Interpretation Comments SODIUM (BEAKER) 139 meq/L 136-145 (test code = 381) POTASSIUM (BEAKER) 4.2 meq/L 3.5-5.1 (test code = 379) CHLORIDE (BEAKER) 104 meq/L 98-107 (test code = 382) CO2 (BEAKER) (test 23 meq/L 22-29 code = 355) BLOOD UREA NITROGEN 9 mg/dL 7-21 (BEAKER) (test code = 354) CREATININE (BEAKER) 0.66 mg/dL 0.57-1.25 (test code = 358) GLUCOSE RANDOM 109 mg/dL 70-105 H (BEAKER) (test code = 652) CALCIUM (BEAKER) 8.6 mg/dL 8.4-10.2 (test code = 697) EGFR (BEAKER) (test 121 mL/min/1.73 ESTIM ATED GFR IS code = 1092) sq m NOT ACCURATE CREATININE CLEARANCE IN PREDICTING GLOMERULAR FILTRATION RATE . ESTIMATED GFR I S NOT APPLICABLE FOR DIALYSIS PATIEN TS. Specimen slightly ictericCBC W/PLT COUNT & AUTO [id number] 09:17:00 Test Item Value Reference Range Interpretation Comments WHITE BLOOD CELL COUNT (BEAKER) 18.2 K/ L 3.5-10.5 H (test code = 775) RED BLOOD CELL COUNT (BEAKER) 2.05 M/ L 3.93-5.22 L (test code = 761) HEMOGLOBIN (BEAKER) (test code = 6.4 GM/DL 11.2-15.7 L 410) HEMATOCRIT (BEAKER) (test code = 19.9 % 34.1-44.9 L 411) MEAN CORPUSCULAR VOLUME (BEAKER) 97.1 fL 79.4-94.8 H (test code = 753) MEAN CORPUSCULAR HEMOGLOBIN 31.2 pg 25.6-32.2 (BEAKER) (test code = 751) MEAN CORPUSCULAR HEMOGLOBIN CONC 32.2 GM/DL 32.2-35.5 (BEAKER) (test code = 752) RED CELL DISTRIBUTION WIDTH 25.4 % 11.7-14.4 H (BEAKER) (test code = 412) PLATELET COUNT (BEAKER) (test 227 K/CU MM 150-450 code = 756) MEAN PLATELET VOLUME (BEAKER) 10.4 fL 9.4-12.3 (test code = 754) NUCLEATED RED BLOOD CELLS 18 /100 WBC 0-0 H (BEAKER) (test code = 413) NEUTROPHILS RELATIVE PERCENT 57 % (BEAKER) (test code = 429) LYMPHOCYTES RELATIVE PERCENT 24 % (BEAKER) (test code = 430) MONOCYTES RELATIVE PERCENT 15 % (BEAKER) (test code = 431) EOSINOPHILS RELATIVE PERCENT 3 % (BEAKER) (test code = 432) BASOPHILS RELATIVE PERCENT 0 % (BEAKER) (test code = 437) NEUTROPHILS ABSOLUTE COUNT 10.46 K/ L 1.56-6.13 H (BEAKER) (test code = 670) LYMPHOCYTES ABSOLUTE COUNT 4.31 K/ L 1.18-3.74 H (BEAKER) (test code = 414) MONOCYTES ABSOLUTE COUNT (BEAKER) 2.72 K/ L 0.24-0.36 H (test code = 415) EOSINOPHILS ABSOLUTE COUNT 0.45 K/ L 0.04-0.36 H (BEAKER) (test code = 416) BASOPHILS ABSOLUTE COUNT (BEAKER) 0.07 K/ L 0.01-0.08 (test code = 417) IMMATURE GRANULOCYTES-RELATIVE 1 % 0-1 PERCENT (BEAKER) (test code = 2801) (MANUAL DIFFERENTIAL)2017-11-05 09:17:00 Test Item Value Reference Range Interpretation Comments TOTAL COUNTED (BEAKER) (test code = 1351) WBC MORPHOLOGY (BEAKER) (test Normal code = 487) PLT MORPHOLOGY (BEAKER) (test Normal code = 486) ANISOCYTOSIS (BEAKER) (test code 2+ moderate = 961) POLYCHROMATOPHILLIC RBCS(BEAKER) 2+ moderate (test code = 478) SICKLE CELLS (BEAKER) (test code 2+ moderate = 767) TARGET CELLS (BEAKER) (test code 2+ moderate = 480) CREATINE KINASE (CK), TOTAL AND [id number] 22:01:00 Test Item Value Reference Range Interpretation Comments CREATINE KINASE TOTAL 10 U/L 29-200 L (BEAKER) (test code = 380) CREATINE KINASE-MB 0.1 ng/mL 0.0-6.6 (BEAKER) (test code = 750) CREATINE KINASE-MB INDEX 1.0 % Marlena ble to Calculate (BEAKER) (test code = 395) CK-MB Reference Range:<6.7 Normal6.7-10.0 Borderline>10.0 AbnormalTROPONIN [id number] 21:16:00 Test Item Value Reference Range Interpretation Comments TROPONIN I (BEAKER) (test code = [...] 2017-06-05 06:49:00 Test Item Value Reference Range Interpretation Comments WHITE BLOOD CELL COUNT (BEAKER) 13.3 K/ L 3.5-10.5 H (test code = 775) RED BLOOD CELL COUNT (BEAKER) 2.18 M/ L 3.93-5.22 L (test code = 761) HEMOGLOBIN (BEAKER) (test code = 6.8 GM/DL 11.2-15.7 L 410) HEMATOCRIT (BEAKER) (test code = 21.5 % 34.1-44.9 L 411) MEAN CORPUSCULAR VOLUME (BEAKER) 98.6 fL 79.4-94.8 H (test code = 753) MEAN CORPUSCULAR HEMOGLOBIN 31.2 pg 25.6-32.2 (BEAKER) (test code = 751) MEAN CORPUSCULAR HEMOGLOBIN CONC 31.6 GM/DL 32.2-35.5 L (BEAKER) (test code = 752) RED CELL DISTRIBUTION WIDTH 21.1 % 11.7-14.4 H (BEAKER) (test code = 412) PLATELET COUNT (BEAKER) (test 192 K/CU MM 150-450 code = 756) MEAN PLATELET VOLUME (BEAKER) 11.4 fL 9.4-12.3 (test code = 754) NUCLEATED RED BLOOD CELLS 1 /100 WBC 0-0 H (BEAKER) (test code = 413) NEUTROPHILS RELATIVE PERCENT 51 % (BEAKER) (test code = 429) LYMPHOCYTES RELATIVE PERCENT 30 % (BEAKER) (test code = 430) MONOCYTES RELATIVE PERCENT 16 % (BEAKER) (test code = 431) EOSINOPHILS RELATIVE PERCENT 2 % (BEAKER) (test code = 432) BASOPHILS RELATIVE PERCENT 0 % (BEAKER) (test code = 437) NEUTROPHILS ABSOLUTE COUNT 6.84 K/ L 1.56-6.13 H (BEAKER) (test code = 670) LYMPHOCYTES ABSOLUTE COUNT 4.06 K/ L 1.18-3.74 H (BEAKER) (test code = 414) MONOCYTES ABSOLUTE COUNT (BEAKER) 2.12 K/ L 0.24-0.36 H (test code = 415) EOSINOPHILS ABSOLUTE COUNT 0.26 K/ L 0.04-0.36 (BEAKER) (test code = 416) BASOPHILS ABSOLUTE COUNT (BEAKER) 0.02 K/ L 0.01-0.08 (test code = 417) IMMATURE GRANULOCYTES-RELATIVE 0 % 0-1 PERCENT (BEAKER) (test code = 2801) BASIC METABOLIC [id number] 07:06:00 Test Item Value Reference Range Interpretation Comments SODIUM (BEAKER) 138 meq/L 136-145 (test code = 381) POTASSIUM (BEAKER) 4.2 meq/L 3.5-5.1 (test code = 379) CHLORIDE (BEAKER) 103 meq/L 98-107 (test code = 382) CO2 (BEAKER) (test 28 meq/L 22-29 code = 355) BLOOD UREA NITROGEN 11 mg/dL 7-21 (BEAKER) (test code = 354) CREATININE (BEAKER) 0.55 mg/dL 0.57-1.25 L (test code = 358) GLUCOSE RANDOM 95 mg/dL 70-105 (BEAKER) (test code = 652) CALCIUM (BEAKER) 9.5 mg/dL 8.4-10.2 (test code = 697) EGFR (BEAKER) (test 150 mL/min/1.73 ESTIM ATED GFR IS code = 1092) sq m NOT ACCURATE CREATININE CLEARANCE IN PREDICTING GLOMERULAR FILTRATION RATE . ESTIMATED GFR I S NOT APPLICABLE FOR DIALYSIS PATIEN TS. CBC W/PLT COUNT & AUTO [id number] 06:48:00 Test Item Value Reference Range Interpretation Comments WHITE BLOOD CELL COUNT (BEAKER) 12.8 K/ L 3.5-10.5 H (test code = 775) RED BLOOD CELL COUNT (BEAKER) 2.22 M/ L 3.93-5.22 L (test code = 761) HEMOGLOBIN (BEAKER) (test code = 7.2 GM/DL 11.2-15.7 L 410) HEMATOCRIT (BEAKER) (test code = 21.9 % 34.1-44.9 L 411) MEAN CORPUSCULAR VOLUME (BEAKER) 98.6 fL 79.4-94.8 H (test code = 753) MEAN CORPUSCULAR HEMOGLOBIN 32.4 pg 25.6-32.2 H (BEAKER) (test code = 751) MEAN CORPUSCULAR HEMOGLOBIN CONC 32.9 GM/DL 32.2-35.5 (BEAKER) (test code = 752) RED CELL DISTRIBUTION WIDTH 21.2 % 11.7-14.4 H (BEAKER) (test code = 412) PLATELET COUNT (BEAKER) (test 176 K/CU MM 150-450 code = 756) MEAN PLATELET VOLUME (BEAKER) 11.2 fL 9.4-12.3 (test code = 754) NUCLEATED RED BLOOD CELLS 5 /100 WBC 0-0 H (BEAKER) (test code = 413) NEUTROPHILS RELATIVE PERCENT 49 % (BEAKER) (test code = 429) LYMPHOCYTES RELATIVE PERCENT 31 % (BEAKER) (test code = 430) MONOCYTES RELATIVE PERCENT 19 % (BEAKER) (test code = 431) EOSINOPHILS RELATIVE PERCENT 2 % (BEAKER) (test code = 432) BASOPHILS RELATIVE PERCENT 0 % (BEAKER) (test code = 437) NEUTROPHILS ABSOLUTE COUNT 6.23 K/ L 1.56-6.13 H (BEAKER) (test code = 670) LYMPHOCYTES ABSOLUTE COUNT 3.90 K/ L 1.18-3.74 H (BEAKER) (test code = 414) MONOCYTES ABSOLUTE COUNT (BEAKER) 2.37 K/ L 0.24-0.36 H (test code = 415) EOSINOPHILS ABSOLUTE COUNT 0.24 K/ L 0.04-0.36 (BEAKER) (test code = 416) BASOPHILS ABSOLUTE COUNT (BEAKER) 0.01 K/ L 0.01-0.08 (test code = 417) IMMATURE GRANULOCYTES-RELATIVE 0 % 0-1 PERCENT (BEAKER) (test code = 2801) (MANUAL DIFFERENTIAL)2017-06-03 06:48:00 Test Item Value Reference Range Interpretation Comments TOTAL COUNTED (BEAKER) (test code = 1351) WBC MORPHOLOGY (BEAKER) (test code = Normal 487) PLT MORPHOLOGY (BEAKER) (test code = Normal 486) ANISOCYTOSIS (BEAKER) (test code = 3+ many 961) MATTHEWS-JOLLY BODIES (BEAKER) (test Present code = 475) MACROCYTES (BEAKER) (test code = 964) 3+ many SICKLE CELLS (BEAKER) (test code = 1+ few 767) TARGET CELLS (BEAKER) (test code = 1+ few 480) BASIC METABOLIC [id number] 07:33:00 Test Item Value Reference Range Interpretation Comments SODIUM (BEAKER) 138 meq/L 136-145 (test code = 381) POTASSIUM (BEAKER) 4.5 meq/L 3.5-5.1 (test code = 379) CHLORIDE (BEAKER) 102 meq/L 98-107 (test code = 382) CO2 (BEAKER) (test 27 meq/L 22-29 code = 355) BLOOD UREA NITROGEN 11 mg/dL 7-21 (BEAKER) (test code = 354) CREATININE (BEAKER) 0.55 mg/dL 0.57-1.25 L (test code = 358) GLUCOSE RANDOM 85 mg/dL 70-105 (BEAKER) (test code = 652) CALCIUM (BEAKER) 9.5 mg/dL 8.4-10.2 (test code = 697) EGFR (BEAKER) (test 150 mL/min/1.73 ESTIM ATED GFR IS code = 1092) sq m NOT ACCURATE CREATININE CLEARANCE IN PREDICTING GLOMERULAR FILTRATION RATE . ESTIMATED GFR I S NOT APPLICABLE FOR DIALYSIS PATIEN TS. CBC W/PLT COUNT & AUTO [id number] 07:13:00 Test Item Value Reference Range Interpretation Comments WHITE BLOOD CELL COUNT (BEAKER) 14.2 K/ L 3.5-10.5 H (test code = 775) RED BLOOD CELL COUNT (BEAKER) 2.39 M/ L 3.93-5.22 L (test code = 761) HEMOGLOBIN (BEAKER) (test code = 7.6 GM/DL 11.2-15.7 L 410) HEMATOCRIT (BEAKER) (test code = 23.5 % 34.1-44.9 L 411) MEAN CORPUSCULAR VOLUME (BEAKER) 98.3 fL 79.4-94.8 H (test code = 753) MEAN CORPUSCULAR HEMOGLOBIN 31.8 pg 25.6-32.2 (BEAKER) (test code = 751) MEAN CORPUSCULAR HEMOGLOBIN CONC 32.3 GM/DL 32.2-35.5 (BEAKER) (test code = 752) RED CELL DISTRIBUTION WIDTH 21.1 % 11.7-14.4 H (BEAKER) (test code = 412) PLATELET COUNT (BEAKER) (test 173 K/CU MM 150-450 code = 756) MEAN PLATELET VOLUME (BEAKER) 11.7 fL 9.4-12.3 (test code = 754) NUCLEATED RED BLOOD CELLS 11 /100 WBC 0-0 H (BEAKER) (test code = 413) NEUTROPHILS RELATIVE PERCENT 53 % (BEAKER) (test code = 429) LYMPHOCYTES RELATIVE PERCENT 27 % (BEAKER) (test code = 430) MONOCYTES RELATIVE PERCENT 18 % (BEAKER) (test code = 431) EOSINOPHILS RELATIVE PERCENT 1 % (BEAKER) (test code = 432) BASOPHILS RELATIVE PERCENT 0 % (BEAKER) (test code = 437) NEUTROPHILS ABSOLUTE COUNT 7.56 K/ L 1.56-6.13 H (BEAKER) (test code = 670) LYMPHOCYTES ABSOLUTE COUNT 3.89 K/ L 1.18-3.74 H (BEAKER) (test code = 414) MONOCYTES ABSOLUTE COUNT (BEAKER) 2.52 K/ L 0.24-0.36 H (test code = 415) EOSINOPHILS ABSOLUTE COUNT 0.20 K/ L 0.04-0.36 (BEAKER) (test code = 416) BASOPHILS ABSOLUTE COUNT (BEAKER) 0.02 K/ L 0.01-0.08 (test code = 417) IMMATURE GRANULOCYTES-RELATIVE 0 % 0-1 PERCENT (BEAKER) (test code = 2801) CBC W/PLT COUNT & AUTO [id number] 16:45:00 Test Item Value Reference Range Interpretation Comments WHITE BLOOD CELL COUNT (BEAKER) 15.1 K/ L 3.5-10.5 H (test code = 775) RED BLOOD CELL COUNT (BEAKER) 2.36 M/ L 3.93-5.22 L (test code = 761) HEMOGLOBIN (BEAKER) (test code = 7.5 GM/DL 11.2-15.7 L 410) HEMATOCRIT (BEAKER) (test code = 23.0 % 34.1-44.9 L 411) MEAN CORPUSCULAR VOLUME (BEAKER) 97.5 fL 79.4-94.8 H (test code = 753) MEAN CORPUSCULAR HEMOGLOBIN 31.8 pg 25.6-32.2 (BEAKER) (test code = 751) MEAN CORPUSCULAR HEMOGLOBIN CONC 32.6 GM/DL 32.2-35.5 (BEAKER) (test code = 752) RED CELL DISTRIBUTION WIDTH 20.7 % 11.7-14.4 H (BEAKER) (test code = 412) PLATELET COUNT (BEAKER) (test 179 K/CU MM 150-450 code = 756) MEAN PLATELET VOLUME (BEAKER) 11.9 fL 9.4-12.3 (test code = 754) NUCLEATED RED BLOOD CELLS 12 /100 WBC 0-0 H (BEAKER) (test code = 413) NEUTROPHILS RELATIVE PERCENT 53 % (BEAKER) (test code = 429) LYMPHOCYTES RELATIVE PERCENT 27 % (BEAKER) (test code = 430) MONOCYTES RELATIVE PERCENT 18 % (BEAKER) (test code = 431) EOSINOPHILS RELATIVE PERCENT 2 % (BEAKER) (test code = 432) BASOPHILS RELATIVE PERCENT 0 % (BEAKER) (test code = 437) NEUTROPHILS ABSOLUTE COUNT 8.03 K/ L 1.56-6.13 H (BEAKER) (test code = 670) LYMPHOCYTES ABSOLUTE COUNT 3.99 K/ L 1.18-3.74 H (BEAKER) (test code = 414) MONOCYTES ABSOLUTE COUNT (BEAKER) 2.65 K/ L 0.24-0.36 H (test code = 415) EOSINOPHILS ABSOLUTE COUNT 0.31 K/ L 0.04-0.36 (BEAKER) (test code = 416) BASOPHILS ABSOLUTE COUNT (BEAKER) 0.02 K/ L 0.01-0.08 (test code = 417) IMMATURE GRANULOCYTES-RELATIVE 0 % 0-1 PERCENT (BEAKER) (test code = 2801) BASIC METABOLIC [id number] 06:17:00 Test Item Value Reference Range Interpretation Comments SODIUM (BEAKER) 138 meq/L 136-145 (test code = 381) POTASSIUM (BEAKER) 4.1 meq/L 3.5-5.1 (test code = 379) CHLORIDE (BEAKER) 100 meq/L 98-107 (test code = 382) CO2 (BEAKER) (test 30 meq/L 22-29 H code = 355) BLOOD UREA NITROGEN 11 mg/dL 7-21 (BEAKER) (test code = 354) CREATININE (BEAKER) 0.58 mg/dL 0.57-1.25 (test code = 358) GLUCOSE RANDOM 90 mg/dL 70-105 (BEAKER) (test code = 652) CALCIUM (BEAKER) 9.4 mg/dL 8.4-10.2 (test code = 697) EGFR (BEAKER) (test 141 mL/min/1.73 ESTIM ATED GFR IS code = 1092) sq m NOT ACCURATE CREATININE CLEARANCE IN PREDICTING GLOMERULAR FILTRATION RATE . ESTIMATED GFR I S NOT APPLICABLE FOR DIALYSIS PATIEN TS. CBC W/PLT COUNT & AUTO [id number] 13:41:00 Test Item Value Reference Range Interpretation Comments WHITE BLOOD CELL COUNT (BEAKER) 13.9 K/ L 3.5-10.5 H (test code = 775) RED BLOOD CELL COUNT (BEAKER) 2.38 M/ L 3.93-5.22 L (test code = 761) HEMOGLOBIN (BEAKER) (test code = 7.5 GM/DL 11.2-15.7 L 410) HEMATOCRIT (BEAKER) (test code = 23.2 % 34.1-44.9 L 411) MEAN CORPUSCULAR VOLUME (BEAKER) 97.5 fL 79.4-94.8 H (test code = 753) MEAN CORPUSCULAR HEMOGLOBIN 31.5 pg 25.6-32.2 (BEAKER) (test code = 751) MEAN CORPUSCULAR HEMOGLOBIN CONC 32.3 GM/DL 32.2-35.5 (BEAKER) (test code = 752) RED CELL DISTRIBUTION WIDTH 20.2 % 11.7-14.4 H (BEAKER) (test code = 412) PLATELET COUNT (BEAKER) (test 171 K/CU MM 150-450 code = 756) MEAN PLATELET VOLUME (BEAKER) 12.0 fL 9.4-12.3 (test code = 754) NUCLEATED RED BLOOD CELLS 8 /100 WBC 0-0 H (BEAKER) (test code = 413) NEUTROPHILS RELATIVE PERCENT 57 % (BEAKER) (test code = 429) LYMPHOCYTES RELATIVE PERCENT 23 % (BEAKER) (test code = 430) MONOCYTES RELATIVE PERCENT 18 % (BEAKER) (test code = 431) EOSINOPHILS RELATIVE PERCENT 2 % (BEAKER) (test code = 432) BASOPHILS RELATIVE PERCENT 0 % (BEAKER) (test code = 437) NEUTROPHILS ABSOLUTE COUNT 7.89 K/ L 1.56-6.13 H (BEAKER) (test code = 670) LYMPHOCYTES ABSOLUTE COUNT 3.13 K/ L 1.18-3.74 (BEAKER) (test code = 414) MONOCYTES ABSOLUTE COUNT (BEAKER) 2.52 K/ L 0.24-0.36 H (test code = 415) EOSINOPHILS ABSOLUTE COUNT 0.25 K/ L 0.04-0.36 (BEAKER) (test code = 416) BASOPHILS ABSOLUTE COUNT (BEAKER) 0.02 K/ L 0.01-0.08 (test code = 417) IMMATURE GRANULOCYTES-RELATIVE 1 % 0-1 PERCENT (BEAKER) (test code = 2801) (MANUAL DIFFERENTIAL)2017-05-31 13:41:00 Test Item Value Reference Range Interpretation Comments TOTAL COUNTED (BEAKER) (test code = 1351) WBC MORPHOLOGY (BEAKER) (test Normal code = 487) PLT MORPHOLOGY (BEAKER) (test Normal code = 486) POLYCHROMATOPHILLIC RBCS(BEAKER) 2+ moderate (test code = 478) SICKLE CELLS (BEAKER) (test code 1+ few = 767) TARGET CELLS (BEAKER) (test code 2+ moderate = 480) URINE [id number] 12:19:00 Test Item Value Reference Range Interpretation Comments CULTURE (BEAKER) (test 20-29,000 col/mL skin code = 1095) valentino BASIC METABOLIC [id number] 07:23:00 Test Item Value Reference Range Interpretation Comments SODIUM (BEAKER) 136 meq/L 136-145 (test code = 381) POTASSIUM (BEAKER) 3.9 meq/L 3.5-5.1 (test code = 379) CHLORIDE (BEAKER) 97 meq/L 98-107 L (test code = 382) CO2 (BEAKER) (test 30 meq/L 22-29 H code = 355) BLOOD UREA NITROGEN 9 mg/dL 7-21 (BEAKER) (test code = 354) CREATININE (BEAKER) 0.56 mg/dL 0.57-1.25 L (test code = 358) GLUCOSE RANDOM 100 mg/dL 70-105 (BEAKER) (test code = 652) CALCIUM (BEAKER) 9.5 mg/dL 8.4-10.2 (test code = 697) EGFR (BEAKER) (test 147 mL/min/1.73 ESTIM ATED GFR IS code = 1092) sq m NOT ACCURATE CREATININE CLEARANCE IN PREDICTING GLOMERULAR FILTRATION RATE . ESTIMATED GFR I S NOT APPLICABLE FOR DIALYSIS PATIEN TS. U/S, ABDOMINAL, [id number] 23:52:00Reason for exam:->painShould this be performed at [...] [place] Verified Date/Time: 05/30/2017 23:52:25 Reading Location: [facility] [id number] Consult Reading Room 11:52 PMCBC W/PLT COUNT & AUTO [id number] 17:30:00 Test Item Value Reference Range Interpretation Comments WHITE BLOOD CELL COUNT (BEAKER) 14.0 K/ L 3.5-10.5 H (test code = 775) RED BLOOD CELL COUNT (BEAKER) 2.41 M/ L 3.93-5.22 L (test code = 761) HEMOGLOBIN (BEAKER) (test code = 7.7 GM/DL 11.2-15.7 L 410) HEMATOCRIT (BEAKER) (test code = 23.3 % 34.1-44.9 L 411) MEAN CORPUSCULAR VOLUME (BEAKER) 96.7 fL 79.4-94.8 H (test code = 753) MEAN CORPUSCULAR HEMOGLOBIN 32.0 pg 25.6-32.2 (BEAKER) (test code = 751) MEAN CORPUSCULAR HEMOGLOBIN CONC 33.0 GM/DL 32.2-35.5 (BEAKER) (test code = 752) RED CELL DISTRIBUTION WIDTH 20.0 % 11.7-14.4 H (BEAKER) (test code = 412) PLATELET COUNT (BEAKER) (test 163 K/CU MM 150-450 code = 756) MEAN PLATELET VOLUME (BEAKER) 11.7 fL 9.4-12.3 (test code = 754) NUCLEATED RED BLOOD CELLS 4 /100 WBC 0-0 H (BEAKER) (test code = 413) NEUTROPHILS RELATIVE PERCENT 47 % (BEAKER) (test code = 429) LYMPHOCYTES RELATIVE PERCENT 32 % (BEAKER) (test code = 430) MONOCYTES RELATIVE PERCENT 18 % (BEAKER) (test code = 431) EOSINOPHILS RELATIVE PERCENT 3 % (BEAKER) (test code = 432) BASOPHILS RELATIVE PERCENT 0 % (BEAKER) (test code = 437) NEUTROPHILS ABSOLUTE COUNT 6.58 K/ L 1.56-6.13 H (BEAKER) (test code = 670) LYMPHOCYTES ABSOLUTE COUNT 4.40 K/ L 1.18-3.74 H (BEAKER) (test code = 414) MONOCYTES ABSOLUTE COUNT (BEAKER) 2.49 K/ L 0.24-0.36 H (test code = 415) EOSINOPHILS ABSOLUTE COUNT 0.44 K/ L 0.04-0.36 H (BEAKER) (test code = 416) BASOPHILS ABSOLUTE COUNT (BEAKER) 0.02 K/ L 0.01-0.08 (test code = 417) IMMATURE GRANULOCYTES-RELATIVE 0 % 0-1 PERCENT (BEAKER) (test code = 2801) BASIC METABOLIC [id number] 06:33:00 Test Item Value Reference Range Interpretation Comments SODIUM (BEAKER) 139 meq/L 136-145 (test code = 381) POTASSIUM (BEAKER) 4.0 meq/L 3.5-5.1 (test code = 379) CHLORIDE (BEAKER) 102 meq/L 98-107 (test code = 382) CO2 (BEAKER) (test 28 meq/L 22-29 code = 355) BLOOD UREA NITROGEN 7 mg/dL 7-21 (BEAKER) (test code = 354) CREATININE (BEAKER) 0.54 mg/dL 0.57-1.25 L (test code = 358) GLUCOSE RANDOM 95 mg/dL 70-105 (BEAKER) (test code = 652) CALCIUM (BEAKER) 9.6 mg/dL 8.4-10.2 (test code = 697) EGFR (BEAKER) (test 153 mL/min/1.73 ESTIM ATED GFR IS code = 1092) sq m NOT ACCURATE CREATININE CLEARANCE IN PREDICTING GLOMERULAR FILTRATION RATE . ESTIMATED GFR I S NOT APPLICABLE FOR DIALYSIS PATIEN TS. CBC W/PLT COUNT & AUTO [id number] 13:41:00 Test Item Value Reference Range Interpretation Comments WHITE BLOOD CELL COUNT (BEAKER) 14.6 K/ L 3.5-10.5 H (test code = 775) RED BLOOD CELL COUNT (BEAKER) 1.85 M/ L 3.93-5.22 L (test code = 761) HEMOGLOBIN (BEAKER) (test code = 5.9 GM/DL 11.2-15.7 LL 410) HEMATOCRIT (BEAKER) (test code = 18.5 % 34.1-44.9 L 411) MEAN CORPUSCULAR VOLUME (BEAKER) 100.0 fL 79.4-94.8 H (test code = 753) MEAN CORPUSCULAR HEMOGLOBIN 31.9 pg 25.6-32.2 (BEAKER) (test code = 751) MEAN CORPUSCULAR HEMOGLOBIN CONC 31.9 GM/DL 32.2-35.5 L (BEAKER) (test code = 752) RED CELL DISTRIBUTION WIDTH 21.0 % 11.7-14.4 H (BEAKER) (test code = 412) PLATELET COUNT (BEAKER) (test 169 K/CU MM 150-450 code = 756) MEAN PLATELET VOLUME (BEAKER) 12.1 fL 9.4-12.3 (test code = 754) NUCLEATED RED BLOOD CELLS 3 /100 WBC 0-0 H (BEAKER) (test code = 413) NEUTROPHILS RELATIVE PERCENT 52 % (BEAKER) (test code = 429) LYMPHOCYTES RELATIVE PERCENT 28 % (BEAKER) (test code = 430) MONOCYTES RELATIVE PERCENT 16 % (BEAKER) (test code = 431) EOSINOPHILS RELATIVE PERCENT 4 % (BEAKER) (test code = 432) BASOPHILS RELATIVE PERCENT 0 % (BEAKER) (test code = 437) NEUTROPHILS ABSOLUTE COUNT 7.50 K/ L 1.56-6.13 H (BEAKER) (test code = 670) LYMPHOCYTES ABSOLUTE COUNT 4.08 K/ L 1.18-3.74 H (BEAKER) (test code = 414) MONOCYTES ABSOLUTE COUNT (BEAKER) 2.34 K/ L 0.24-0.36 H (test code = 415) EOSINOPHILS ABSOLUTE COUNT 0.56 K/ L 0.04-0.36 H (BEAKER) (test code = 416) BASOPHILS ABSOLUTE COUNT (BEAKER) 0.02 K/ L 0.01-0.08 (test code = 417) IMMATURE GRANULOCYTES-RELATIVE 0 % 0-1 PERCENT (BEAKER) (test code = 2801) (MANUAL DIFFERENTIAL)2017-05-29 13:41:00 Test Item Value Reference Range Interpretation Comments TOTAL COUNTED (BEAKER) (test code = 1351) WBC MORPHOLOGY (BEAKER) (test Normal code = 487) PLT MORPHOLOGY (BEAKER) (test Normal code = 486) POLYCHROMATOPHILLIC RBCS(BEAKER) 2+ moderate (test code = 478) SICKLE CELLS (BEAKER) (test code 1+ few = 767) TARGET CELLS (BEAKER) (test code 2+ moderate = 480) BASIC METABOLIC [id number] 07:38:00 Test Item Value Reference Range Interpretation Comments SODIUM (BEAKER) 140 meq/L 136-145 (test code = 381) POTASSIUM (BEAKER) 3.9 meq/L 3.5-5.1 (test code = 379) CHLORIDE (BEAKER) 104 meq/L 98-107 (test code = 382) CO2 (BEAKER) (test 28 meq/L 22-29 code = 355) BLOOD UREA NITROGEN 8 mg/dL 7-21 (BEAKER) (test code = 354) CREATININE (BEAKER) 0.56 mg/dL 0.57-1.25 L (test code = 358) GLUCOSE RANDOM 129 mg/dL 70-105 H (BEAKER) (test code = 652) CALCIUM (BEAKER) 9.2 mg/dL 8.4-10.2 (test code = 697) EGFR (BEAKER) (test 147 mL/min/1.73 ESTIM ATED GFR IS code = 1092) sq m NOT ACCURATE CREATININE CLEARANCE IN PREDICTING GLOMERULAR FILTRATION RATE . ESTIMATED GFR I S NOT APPLICABLE FOR DIALYSIS PATIEN TS. CBC W/PLT COUNT & AUTO [id number] 15:40:00 Test Item Value Reference Range Interpretation Comments WHITE BLOOD CELL COUNT (BEAKER) 15.5 K/ L 3.5-10.5 H (test code = 775) RED BLOOD CELL COUNT (BEAKER) 2.13 M/ L 3.93-5.22 L (test code = 761) HEMOGLOBIN (BEAKER) (test code = 6.8 GM/DL 11.2-15.7 L 410) HEMATOCRIT (BEAKER) (test code = 21.1 % 34.1-44.9 L 411) MEAN CORPUSCULAR VOLUME (BEAKER) 99.1 fL 79.4-94.8 H (test code = 753) MEAN CORPUSCULAR HEMOGLOBIN 31.9 pg 25.6-32.2 (BEAKER) (test code = 751) MEAN CORPUSCULAR HEMOGLOBIN CONC 32.2 GM/DL 32.2-35.5 (BEAKER) (test code = 752) RED CELL DISTRIBUTION WIDTH 20.8 % 11.7-14.4 H (BEAKER) (test code = 412) PLATELET COUNT (BEAKER) (test 178 K/CU MM 150-450 code = 756) MEAN PLATELET VOLUME (BEAKER) 11.9 fL 9.4-12.3 (test code = 754) NUCLEATED RED BLOOD CELLS 2 /100 WBC 0-0 H (BEAKER) (test code = 413) NEUTROPHILS RELATIVE PERCENT 47 % (BEAKER) (test code = 429) LYMPHOCYTES RELATIVE PERCENT 34 % (BEAKER) (test code = 430) MONOCYTES RELATIVE PERCENT 16 % (BEAKER) (test code = 431) EOSINOPHILS RELATIVE PERCENT 3 % (BEAKER) (test code = 432) BASOPHILS RELATIVE PERCENT 0 % (BEAKER) (test code = 437) NEUTROPHILS ABSOLUTE COUNT 7.20 K/ L 1.56-6.13 H (BEAKER) (test code = 670) LYMPHOCYTES ABSOLUTE COUNT 5.22 K/ L 1.18-3.74 H (BEAKER) (test code = 414) MONOCYTES ABSOLUTE COUNT (BEAKER) 2.50 K/ L 0.24-0.36 H (test code = 415) EOSINOPHILS ABSOLUTE COUNT 0.48 K/ L 0.04-0.36 H (BEAKER) (test code = 416) BASOPHILS ABSOLUTE COUNT (BEAKER) 0.02 K/ L 0.01-0.08 (test code = 417) IMMATURE GRANULOCYTES-RELATIVE 1 % 0-1 PERCENT (BEAKER) (test code = 2801) (MANUAL DIFFERENTIAL)2017-05-28 15:40:00 Test Item Value Reference Range Interpretation Comments TOTAL COUNTED (BEAKER) (test code = 1351) WBC MORPHOLOGY (BEAKER) (test Normal code = 487) PLT MORPHOLOGY (BEAKER) (test Normal code = 486) ANISOCYTOSIS (BEAKER) (test code 2+ moderate = 961) POLYCHROMATOPHILLIC RBCS(BEAKER) 2+ moderate (test code = 478) SICKLE CELLS (BEAKER) (test code 1+ few = 767) TARGET CELLS (BEAKER) (test code 2+ moderate = 480) URINALYSIS W/ [id number] 15:13:00 Test Item Value Reference Range Interpretation Comments COLOR (BEAKER) (test code = Yellow 470) CLARITY (BEAKER) (test code = Clear 469) SPECIFIC GRAVITY UA (BEAKER) 1.008 1.001-1.035 (test code = 468) PH UA (BEAKER) (test code = 6.0 5.0-8.0 467) PROTEIN UA (BEAKER) (test code Negative Negative = 464) GLUCOSE UA (BEAKER) (test code Negative Negative = 365) KETONES UA (BEAKER) (test code Negative Negative = 371) BILIRUBIN UA (BEAKER) (test Negative Negative code = 462) BLOOD UA (BEAKER) (test code = Negative Negative 461) NITRITE UA (BEAKER) (test code Negative Negative = 465) LEUKOCYTE ESTERASE UA (BEAKER) Negative Negative (test code = 466) UROBILINOGEN UA (BEAKER) (test 0.2 mg/dL 0.2-1.0 code = 463) RBC UA (BEAKER) (test code = < /HPF 519) WBC UA (BEAKER) (test code = 2 /HPF 520) MUCUS (BEAKER) (test code = Rare 1574) SQUAMOUS EPITHELIAL (BEAKER) 5 /HPF (test code = 516) SOURCE(BEAKER) (test code = Urine, Voided 2795) BASIC METABOLIC [id number] 06:26:00 Test Item Value Reference Range Interpretation Comments SODIUM (BEAKER) 139 meq/L 136-145 (test code = 381) POTASSIUM (BEAKER) 3.8 meq/L 3.5-5.1 (test code = 379) CHLORIDE (BEAKER) 104 meq/L 98-107 (test code = 382) CO2 (BEAKER) (test 30 meq/L 22-29 H code = 355) BLOOD UREA NITROGEN 6 mg/dL 7-21 L (BEAKER) (test code = 354) CREATININE (BEAKER) 0.56 mg/dL 0.57-1.25 L (test code = 358) GLUCOSE RANDOM 102 mg/dL 70-105 (BEAKER) (test code = 652) CALCIUM (BEAKER) 9.0 mg/dL 8.4-10.2 (test code = 697) EGFR (BEAKER) (test 147 mL/min/1.73 ESTIM ATED GFR IS code = 1092) sq m NOT ACCURATE CREATININE CLEARANCE IN PREDICTING GLOMERULAR FILTRATION RATE . ESTIMATED GFR I S NOT APPLICABLE FOR DIALYSIS PATIEN TS. CHEM [id number] 07:40:45601Vddvfcur HbuzhqdMARKBDGSXQIL7393-60-39 07:40:00 10.8[facility] UmapcpyIZTFXYVRQMSQ0842-81-64 07:40:008.4[facility] FWGJXLZKRSUZ8448-33-69 07:40:0027[facility] GcullzaKNDZULDZTZCS3572-41-84 07:40:00 108[facility] NcqoegyRMAOJFUGBBOJ7948-01-44 07:40:80184Wyhakdpt [facility] GWIIKJECSNJA5735-81-46 07:40:004[facility] ZbbhbykWSLEGRHOGREX1881-69-48 07:40:00 82[facility] ZrlodmsLBWZRARBTOEK5936-96-22 07:40:04211Pmvxecdu HermannELECTROLYTES 2014-09-11 07:40:000.7[facility] JykbsxsGQKYBNCOBQDF5225-61-58 07:40:003.8[facility] SnxekuoZPPQOBAHXE6701-21-58 07:40:0016.5[facility] RdvnhdgBGRMJJCXET3840-76-75 07:40:0025.5[facility] BosnbkkESWMNRBYFO2669-16-43 07:40:008.6[facility] WKJLNSLJCN7561-81-42 07:40:65713Gdzblyud XwipobdCHPZTPOHSQ1106-29-40 07:40:00 19.8[facility] SyexjbbPABAKRJSIE4285-83-14 07:40:006.7[facility] HermannHEMATOLOGY 2014-09-11 07:40:0097.9[facility] HaemcyyBGEADLPPUG5660-31-96 07:40:0034.0[facility] MnabhxmARYGUJPVKO3682-34-89 07:40:00 Test Item Value Reference Range Interpretation Comments MCH (test code = MCH) 33.3 pg 27.0-31.0 [facility] TubgcbcUSXBSIGJET6901-22-58 07:40:0014.1[facility]annHEMATOLOGY 2014-09-11 07:40:002.02[facility]annBLOOD BANK ZRNXOEN4882-59-08 14:01:00 Positive 1(09/10/14 8:01 AM)[facility]OD B[facility] LPSVOVH6874-76-19 14:01:00 Negative (09/10/14 8:01 AM)[facility] BANK BRHSZKQ1214-01-71 14:01:00 Positive (09/10/14 8:01 AM)[facility] NschmvrJLXJSEYNJO3565-91-14 12:34:006.3 [facility]annCHEM YRSSY9443-41-86 10:42:03072Sfljdokw HermannELECTROLYTES 2014-09-10 10:42:0011.8[facility] YsvuzkuTYCBYXDKMLBF4171-52-70 10:42:81717 [facility] JjwzbehDUUEWLKDNRTB2287-73-71 10:42:008.3[facility] HermannELECTROLYTES 2014-09-10 10:42:44212Aihxtbmd MudwkfaIWHLXWNZMULK5367-66-61 10:42:81524Jtvapglb IfnkfddFDVOKPEQLUJA8812-84-86 10:42:0081[facility] RiyuspnPLRIDQLPQXTJ3751-96-89 10:42:004[facility] VnujiqhGAKXJUBCCUKT2559-00-47 10:42:000.6[facility] DVQPERJUKRTQ5991-25-86 10:42:0023[facility] JhbkvbfZHGFUODOHIEB1820-10-72 10:42:00 3.8[facility] OmgjysfXXRUSADMVD4263-74-71 10:42:006.2[facility]annHEMATOLOGY 2014-09-10 10:42:0015.9[facility] IuenifaDNKMLBZFZV0036-22-90 10:42:001.85[facility] KeduyjcSZHHTTFJLP7037-75-36 10:42:0018.2[facility] JurxaknVGVSKFSUPH8150-37-65 10:42:0098.3[facility] LzfdnvnKYETTNEPRT7468-26-00 10:42:0025.4[facility] XFSTHVWFDM8871-08-93 10:42:31998Dkonsfxe SzyclfqKBGHLWFQOD3393-62-76 10:42:00 Test Item Value Reference Range Interpretation Comments MCH (test code = MCH) 33.6 pg 27.0-31.0 [facility] WnkmqyyTJPWNZXBOS2834-45-80 10:42:0034.2[facility] HermannHEMATOLOGY 2014-09-10 10:42:008.5[facility] FuyrjebLQWJIOQABW6468-24-60 10:42:0015.8[facility] SkezahnULKKNUVAQBZZ2584-57-75 08:13:0013.7[facility] JffayomOTCVQEUEGNBS2162-22-50 08:13:0096[facility] KczppymSRZUYHUCUVOH7898-44-41 08:13:009.1[facility] XYKTLAQAQXHK2627-80-81 08:13:003.7[facility] XjcrxrdEECTGRARXYWF4216-67-03 08:13:87038Odrzbukq WuhlunmGAMXJALLLPMA1024-51-65 08:13:38925Jztqazoo [facility] WLBMJSYXNXDH9891-83-19 08:13:000.9[facility] CoaqgkyKISQLYKWLRDC2087-75-07 08:13:006[facility] CupgxsbSIIGOSJXLIPO2108-69-15 08:13:0026[facility] EYWXQEUOMKVG0708-79-73 08:13:88981Gyedotln EdoenrcZRUFVGUVZO2265-18-53 08:13:00 1-3 per HPF (09/09/14 2:13 AM)[facility] IedtvvtAAENAIMCLN6023-69-05 08:13:00 Moderate *ABN*(09/09/14 2:13 AM)[facility] VofgaqgMXIMRFJWKI5588-33-68 08:13:00 Normal (09/09/14 2:13 AM)[facility] KkhdoacVMCBDOPPCL8783-21-55 08:13:00 Test Item Value Reference Range Interpretation Comments Tot Cell Ct (test code = Tot Cell Ct) 100 1 [facility] GmowkogUZLKEHIMTK1195-33-30 08:13:000.0[facility] HermannHEMATOLOGY 2014-09-09 08:13:0049.0[facility] PrpetqqYXOBKMHOPG3464-60-61 08:13:001+ *ABN*(09/09/14 2:13 AM)[facility] LkwmyttQDYJECVXSR8506-64-97 08:13:001+ *ABN*(09/09/14 2:13 AM)[facility] XjskvtbFMORWVGLFL6868-77-72 08:13:002[facility] DgdltbyHZEJRUMMNP0006-31-95 08:13:000.0[facility] TgdeqgfXTEXXZWEVC8862-32-94 08:13:003.0[facility] HltbjbrRCYUPXMWBL5717-91-92 08:13:0014.0[facility] Roly [id number] 08:13:0034.0[facility] [id number] 08:13:00 0.6[facility] KibvlesLZEBHOQUIL0970-61-48 08:13:002.7[facility] HermannHEMATOLOGY 2014-09-09 08:13:006.5[facility] XvvzaswSYCZQIAQBB9506-87-45 08:13:009.3[facility] DzuxnkmOXCKOUJVPF5251-12-21 08:13:0016.6[facility] YgxrixrBUCHOEWKYU8946-88-54 08:13:008.3[facility] OjphqquPOKUAURPWB8375-17-13 08:13:0025.8[facility] GTSERWPVFO2619-66-16 08:13:0034.3[facility] BgsgzoyGYIKQROCKB2637-90-80 08:13:00 220[facility] JzzdqwdOUIBZMFHVX4633-40-67 08:13:0099.8[facility]annHEMATOLOGY 2014-09-09 08:13:0022.7[facility] MkocawzTVTMVKFFBP4057-64-69 08:13:00 Test Item Value Reference Range Interpretation Comments MCH (test code = MCH) 34.2 pg 27.0-31.0 [facility] IwrquwdATYQZPPRJY9451-17-30 08:13:0019.0[facility]annHEMATOLOGY 2014-09-09 08:13:002.28[facility]
--- OUTSIDE RECORDS SUMMARY | 2020-02-23 08:20 | XMS REPORT | Summary of Care ---
:1980 Author Organization [facility] Address [address] [place] [address] Care Team Providers Name Role Phone Naeem Guaman Unavailable Thuy Jay MD Primary Care Provider Reason for Visit Reason Comments LAB Encounter Details Date Type Department Care Team Description 01/26/2020 Newspaper Stuffer Visit [facility] Dudley Jay MD [address] [place] [address] [facility] [place] [address] Peripheral edema; Professional Office 2, Adc Lab Sickle cell anemia with pain; Building Phlebotomy [facility] hypertension; Lab Nocturnal cough; Professional Office Chronic insomnia; Building Myalgia [address] [facility] , [address] [place] [address] Allergies Active Allergy Reactions Severity Noted Date Comments Jku-Jp-Lnz-Atropine-Hyosc- Unknown - See 10/01/2014 seizure Scop comments [...] as of this encounter (statuses as of 01/26/2020) Medications Medication Sig Dispensed Refills Start Date [...] for Wheezing or breath) Shortness of Breath. hydrALAZINE 25 mg Take 1 tablet by 60 tablet 5 01/26/2020 Active tabletIndications: mouth 2 (two) Essential hypertension times daily. famotidine 40 mg Take 1 tablet by 30 tablet 5 01/26/2020 Active tabletIndications: mouth at bedtime. Nocturnal cough ramelteon 8 mg Take 1 tablet by 30 tablet 2 01/26/2020 Active tabletIndications: mouth at bedtime Chronic insomnia as needed for Insomnia. tiZANidine 2 mg Take 1-2 tablets 60 tablet 2 01/26/2020 Active tabletIndications: by mouth every 8 Myalgia (eight) hours as needed (pain). clonazePAM 1 mg tablet Take 1 mg by 0 Active mouth. documented as of this encounter (statuses as of 01/26/2020) Active Problems Problem Noted Date Left hand pain 01/07/2020 Left wrist pain 01/07/2020 Fall, initial encounter 01/07/2020 Arthralgia, unspecified joint 01/07/2020 Obesity (BMI 30-39.9) 01/30/2019 Atypical chest pain 01/28/2019 LANE (dyspnea on exertion) 01/27/2019 Sickle cell anemia with pain 01/27/2019 History of acute myocardial infarction 07/08/2017 History of CVA (cerebrovascular accident) 07/08/2017 Anxiety Depression Hypertension Seizures Sickle cell anemia documented as of this encounter (statuses as of 01/26/2020) Resolved Problems Problem Noted Date Resolved Date Foot pain, right 11/29/2015 07/08/2017 documented as of this encounter (statuses as of 01/26/2020) Social History Tobacco Use Types Packs/Day Years Used Date Never Smoker Cigarettes Smokeless Tobacco: Never Used Alcohol Use Drinks/Week oz/Week Comments No 0 Standard drinks or equivalent 0.0 Sex Assigned at Date Recorded Not on file Job Start Date Occupation Industry Not on file Not on file Not on file Travel History Travel Start Travel End No recent travel history available. COVID-19 Exposure Response Date Recorded In the last month, have you been in contact with No / Unsure 01/26/2020 1:07 PM CDT someone who was confirmed or suspected to have Coronavirus / COVID-19? documented as of this encounter Last Filed Vital Signs Not on filedocumented in this encounter Plan of Treatment Date Type Specialty Care Team Description 02/19/2020 Office Visit Oncology Michelet Lao MD [address] [place], [place] [address] [phone] 04/27/2020 Office Visit Family Medicine Jose Jay MD [address] [place], [place] [address] Name Type Priority Associated Diagnoses Order S chedule CBC WITH DIFFERENTIAL LAB Routine Peripheral edema Ordered: 01/26/2020 Sickle cell anem ia with pain Essential hypert ension Nocturnal cough Chronic insomnia Myalgia Health Maintenance Due Date Last Done Comments PAP SMEAR 2000 Breast Cancer Screening 2019 (MAMMOGRAM) DTaP,Tdap,and Td Vaccines (1 - 03/30/2020 P ostponed from 1990 Tdap) (Refused) PNEUMOCOCCAL 0-64 YEARS COMBINED 03/30/2020 Postponed from 1985 SERIES (1 of 3 - PCV13) (Refused ) INFLUENZA VACCINE (Season Ended) 2020 Postponed from 04/20/2020 (Parent Refused) Depression Screening 01/06/2021 01/07/2020 documented as of this encounter Results Not on filedocumented in this encounter Visit Diagnoses Diagnosis Peripheral edema Edema 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
--- OUTSIDE RECORDS SUMMARY | 2020-02-23 08:20 | XMS REPORT | Summary of Care ---
:1980 Author Organization [facility] Address [address] [place] [address] Care Team Providers Name Role Phone Naeem Guaman Unavailable Thuy Jay MD Primary Care Provider Reason for Visit Reason Comments Results Encounter Details Date Type Department Care Team Description 01/09/2020 Telephone [facility] Family Medicine Sid Porter MD Results - [address] [facility] [address] [place] [address] [place] [address] [phone] Allergies Active Allergy Reactions Severity Noted Date Comments Kup-Ro-Aiw-Atropine-Hyosc- Unknown - See 10/01/2014 seizure Scop comments [...] as of this encounter (statuses as of 01/09/2020) Medications Medication Sig Dispensed Refills Start Date End Date Status triamcinolone acetonide 0 10/27/2015 Active (KENALOG) 0.1 % ointment proMETHazine (PHENERGAN) 0 10/12/2015 Active 25 mg tablet ibuprofen (MOTRIN) 600 mg 0 10/12/2015 Active tablet HYDROcodone-acetaminophen Take 2 tablets 0 6 Active (NORCO) 10-325 mg tablet by mouth 4 (four) times daily. foLIC acid (FOLATE) 1 mg Take 1 mg by 0 Active tablet mouth. mirtazapine 45 mg tablet Take 45 mg by 0 Active mouth. albuterol 90 Inhale 2 Puffs 1 Inhaler 1 01/21/2019 A ctive mcg/actuation every 6 (six) inhalerIndications: SOB hours as needed (shortness of breath) for Wheezing or Shortness of Breath. amLODIPine 2.5 mg Take 1 tablet 90 tablet 1 01/24/2019 Active tabletIndications: LANE by mouth daily. (dyspnea on exertion), Essential hypertension tiZANidine 2 mg Take 1-2 60 tablet 2 06/10/2019 Act lev tabletIndications: Right tablets by arm pain mouth every 8 (eight) hours as needed (pain). hydroCHLOROthiazide 12.5 Take 1 capsule 90 capsule 0 0 Active mg capsuleIndications: by mouth daily. Hypertension, unspecified type documented as of this encounter (statuses as of 01/09/2020) Active Problems Problem Noted Date Left hand [...] as of this encounter (statuses as of 01/09/2020) Resolved Problems Problem Noted Date Resolved Date Foot pain, right 11/29/2015 07/08/2017 documented as of this encounter (statuses as of 01/09/2020) Social History Tobacco Use Types Packs/Day Years [...] been in contact with No / Unsure 01/07/2020 2:55 PM CDT someone who was confirmed or suspected to have Coronavirus / COVID-19? documented as of this encounter Last Filed Vital Signs Not on filedocumented in this encounter Plan of Treatment Date Type Specialty Care Team Description 02/19/2020 Office Visit Oncology Michelet Lao MD [address] [place], [place] [address] [phone] Health Maintenance Due Date Last Done Comments [...] Effective Phone Address T ype Group Dates [facility] [id number] 2017-Pres Medica re HEALTHCARE - HEALTHCARE ent Adv HM O MANAGED DUAL COMPLETE MEDICARE HMO [facility] MEDICAID OF xxxxxxxxx 2019-Pres [phone] [address] [facility] ent [id number] [place] [address] documented as of this encounter
--- OUTSIDE RECORDS SUMMARY | 2020-02-23 08:20 | XMS REPORT | Summary of Care ---
:1980 Author Organization [facility] Address [address] [place] [address] Care Team Providers Name Role Phone Naeem Guaman Unavailable Thuy Jay MD Primary Care Provider Reason for Referral Radiology Services (Routine) Status Reason Specialty Diagnoses / Referred By Referred To Procedures Contact Contact Closed Diagnostic Diagnoses Left hand pain Fall, initial encounter Left wrist pain Sid Mcbride, Radiology Procedures XR HAND 3+ VW LEFT [address] [place] [address] Dr [address]aud[address] [place] [address] Reason for Visit Radiology Services (Routine) Status Reason Specialty Diagnoses / Referred By Referred To Procedures Contact Contact Closed Diagnostic Diagnoses Left hand pain Fall, initial encounter Left wrist pain Sid Mcbride, Radiology Procedures XR HAND 3+ VW LEFT [address] [place] [address] Dr [address] [place] [address] Encounter Details Date Type Department Care Team Description 01/07/2020 Hospital Encounter [facility] Sid Rdz MD [facility] Radiology [address] [place] [address] [place] [address] Dr Chaudhari [address] [place] [phone] [place], [place] [phone] Allergies Active Allergy Reactions Severity Noted Date Comments Lro-Zu-Cnn-Atropine-Hyosc- Unknown - See 10/01/2014 seizure Scop comments [...] as of this encounter (statuses as of 01/08/2020) Medications Medication Sig Dispensed Refills Start Date [...] as of this encounter (statuses as of 01/08/2020) Active Problems Problem Noted Date Left hand [...] as of this encounter (statuses as of 01/08/2020) Resolved Problems Problem Noted Date Resolved Date Foot pain, right 11/29/2015 07/08/2017 documented as of this encounter (statuses as of 01/08/2020) Social History Tobacco Use Types Packs/Day Years [...] 02/19/2020 Office Visit Oncology Michelet Lao MD [address] [place], [place] [address] [phone] Name Type Priority Associated Diagnoses Date/Ti me XR HAND 3+ VW LEFT IMAGING Routine Left hand romina n 01/07/2020 4:21 PM CDT Fall, initial en counter Left wrist pain Name Type Priority Associated Diagnoses Order S chedule XR HAND 3+ VW LEFT IMAGING Routine Left hand romina n 1 Occurrences starting Fall, initial en counter 01/07/2020 until Left wrist pain 01/07/2020 Health Maintenance Due Date Last Done Comments [...] filedocumented in this encounter Visit Diagnoses Diagnosis Left hand pain Pain in limb Fall, initial encounter Left wrist pain Pain in joint, forearm documented in this encounter Insurance Payer Benefit Plan / Subscriber ID Effective Phone Address T ype Group Dates [facility] [id number] 2017-Pres [employer] - HEALTHCARE ent Adv HM O MANAGED DUAL COMPLETE MEDICARE HMO TM MEDICAID OF xxxxxxxxx 2019-Pres [phone] [facility] ent [id number] [place] [address] documented as of this encounter
--- OUTSIDE RECORDS SUMMARY | 2020-02-23 08:20 | XMS REPORT | Summary of Care ---
:1980 Author Organization [facility] Address [address] [place] [address] Care Team Providers Name Role Phone Naeem Guaman Unavailable Thuy Jay MD Primary Care Provider Reason for Referral Radiology Services (Routine) Status Reason Specialty Diagnoses / Referred By Referred To Procedures Contact Contact Authorized Diagnostic Diagnoses Left hand pain Fall, initial encounter Left wrist pain Edemekonancie, Radiology Procedures XR HAND 3+ VW LEFT MD [facility] [address] [place] [address] Reason for Visit Reason Comments FACIAL SWELLING admitted [facility] 12/22/19 FOOT SWELLING Hypertension Pain R/T Sickle Cell Fall Encounter Details Date Type Department Care Team Description 01/07/2020 Urgent Care [facility] Family Trey Mcbride MD [facility] [address] [place], [place] [id number] Left hand pain (Primary Dx); Medicine - [place] Provider, [facility] Urgent Care Left wrist pain; [address] [facility] Drharoldo e Fall, initial encounter; [place], [place] Sickle cell ane gladis with pain; [phone] Arthralgia, unspecified join t; [phone] Hypertension, u nspecified type Allergies Active Allergy Reactions Severity Noted Date Comments Mrx-Mw-Khm-Atropine-Hyosc- Unknown - See 10/01/2014 seizure Scop comments [...] as of this encounter (statuses as of 01/07/2020) Medications Medication Sig Dispensed Refills Start Date [...] as of this encounter (statuses as of 01/07/2020) Active Problems Problem Noted Date Left hand [...] as of this encounter (statuses as of 01/07/2020) Resolved Problems Problem Noted Date Resolved Date Foot pain, right 11/29/2015 07/08/2017 documented as of this encounter (statuses as of 01/07/2020) Social History Tobacco Use Types Packs/Day Years [...] Sign Reading Time Taken Comments Blood Pressure 161/108 01/07/2020 3:04 PM CDT Pulse 82 01/07/2020 2:58 PM CDT Temperature 37 C (98.6 F) 01/07/2020 2:58 PM CDT Respiratory Rate 17 01/07/2020 2:58 PM CDT Oxygen Saturation 99% 01/07/2020 2:58 PM CDT Inhaled Oxygen Concentration - - Weight 77.1 kg (170 lb) 01/07/2020 2:58 PM CDT Height 160 cm (5' 3") 01/07/2020 2:58 PM CDT Body Mass Index 30.11 01/07/2020 2:58 PM CDT documented in this encounter Patient Instructions Patient InstructionsEdSid tam MD - 01/07/2020 2:20 PM CDT Patient Education Eating Heart-Healthy Food: Using the DASH Plan Eating for your heart doesnt have to be hard or boring. You just need to know how to make healthier choices. The DASH eating plan has been developed to help you do just that. DASH stands for DietaryApproaches to Stop Hypertension. It is a plan that has been proven to be healthier for your heart and to lower your risk for high blood pressure. It can also help lower your risk for cancer, heart disease, osteoporosis, and diabetes. Choosing from each food group Choose foods from each of the food groups below each day. Try to get the recommended number of servings for each food group. The serving numbers are based on a diet of 2,000 calories a day.Talk with your healthcare provider if youre not sure about your calorie needs. Along with getting the correct servings, the DASH plan also advises less than 2,300 mg of salt (sodium) per day. Lowering sodium intake to 1,500 mg per day lowers blood pressure even more. (There's about 2,300 mg of sodium in 1 teaspoon of salt.) Grains Servings: 6 to 8 a day A serving is: 1 slice bread 1 ounce dry cereal Half a cup cooked rice, pasta or cereal Best choices: Whole grains and any grains high in fiber. Vegetables Servings: 4 to 5 a day A serving is: 1 cup raw leafy vegetable Half a cup cut-up raw or cooked vegetable Half a cup vegetable juice Best choices: Fresh or frozen vegetables prepared without added salt or fat. Fruits Servings: 4 to 5 a day A serving is: 1 medium fruit One-quarter cup dried fruit Half a cup fresh, frozen, or canned fruit Half a cup of 100% fruit juices Best choices: A variety of fresh fruits of different colors. Whole fruits are abetter choice than fruit juices. Low-fat or fat-free dairy Servings: 2 to 3 a day A serving is: 1 cup milk 1 cup yogurt One and a half ounces cheese Best choices: Skim or 1% milk, low-fat or fat-free yogurt or buttermilk, and low-fat cheeses. Lean meats, poultry, fish Servings:6 or fewer a day A serving is: 1ounce cooked meats, poultry, or fish 1 egg Best choices: Leanpoultry and fish. Trim away visible fat. Broil, grill, roast, or boil instead offrying. Remove skin from poultry before eating. Limit how much red meat you eat. Nuts, seeds, beans Servings: 4 to 5 a week A serving is: One-third cup nuts (one and a half ounces) 2 tablespoons nut butter or seeds Half a cup cooked dry beans or legumes Best choices: Dry roasted nuts with no salt added, lentils, kidney beans, garbanzo beans, and whole serrano beans. Fats and oils Servings: 2 to 3 a day A serving is: 1 teaspoon vegetable oil 1 teaspoon soft margarine 1 tablespoonmayonnaise 2 tablespoons salad dressing Best choices: Nut and vegetable oils(nontropical vegetable oils), such as olive and canola oil. Sweets Servings: 5 a week or fewer A serving is: 1 tablespoon sugar, maple syrup, or honey 1 tablespoon jam or jelly 1 half-ounce jelly beans (about 15) 1 cup lemonade Best choices: Dried fruit can be a satisfying sweet. Choose low-fat sweets. And watch your serving sizes! For more on the DASH eating plan, visit: www.nhlbi.nih.gov/health/health-topics/topics/dash [employer] last reviewed this educational content on 02/17/201919992050-3861 [employer]. [address] [place] [address]. All rights reserved. This information is not intended as a substitute for professional medical care. Always follow your healthcare professional's instructions. documented in this encounter Progress Notes Sid Mcbride MD - 01/07/2020 2:20 PM CDT Cc: Chief Complaint Patient presents with FACIAL SWELLING admitted [facility] 12/22/19 FOOT SWELLING Hypertension Pain R/T Sickle Cell Fall Brennon Duffy is a 39 year old female with recent sickling crisis, b/l upper and lower extremity swelling, and hospitalization at external facility presents c/o left hand/wrist pain and swelling s/p fall 3 days ago at home. Patient reports generalized body pain, currently on Meriden which helps with Sx. BP is elevated on arrival, patient is on Amlodipine, unsure if she took medication today. Patient reports she woke up this morning with facial swelling, defers on going to the ER at this time, notes that is "waiting in the car for her". Allergies Brennon is allergic to ldk-tp-jll-dhzinevq-rwiqs-bcdv; fentanyl; morphine; morphine; reglan [metoclopramide hcl]; stadol [butorphanol tartrate]; stadol [butorphanol tartrate]; toradol [ketorolac tromethamine]; toradol [ketorolac tromethamine]; tramadol; trazodone; trazodone; xanax [alprazolam]; and zofran [ondansetron hcl (pf)]. Medications Outpatient Medications Prior to Visit Medication Sig Dispense Refill HYDROcodone-acetaminophen (NORCO) 10-325 mg tablet Take 2 tablets by mouth 4 (four) times daily. tiZANidine 2 mg tablet Take 1-2 tablets [...] mg tablet Take 1 mg by mouth. ibuprofen (MOTRIN) 600 mg tablet proMETHazine (PHENERGAN) [...] file Gets together: Not on file Attends restorationism service: Not on file Active member of [...] Cancer Paternal Grandfather Review of Systems Constitutional: Negative for unexpected weight change. Eyes: Negative for visual disturbance. Respiratory: Negative for chest tightness and shortness of breath. Cardiovascular: Negative for chest pain and palpitations. Gastrointestinal: Negative for abdominal pain. Musculoskeletal: Positive for arthralgias, joint swelling and myalgias. Neurological: Negative for dizziness, tremors, facial asymmetry, weakness and light-headedness. Psychiatric/Behavioral: Negative for self-injury. Vital Signs BP (!) 161/108 | Pulse 82 | Temp 37 C (98.6 F) (Oral) | Resp 17 | Ht 5' 3" (1.6 m) | Wt 170lb (77.1 kg) | SpO2 99% | BMI 30.11 kg/m Physical Exam Constitutional: She is oriented to person, place, and time. No distress. HENT: Head: Atraumatic. Eyes: Pupils are equal, round, and reactive to light. EOM are normal. Neck: Normal range of motion. Neck supple. Cardiovascular: Normal rate and regular rhythm. Pulmonary/Chest: Effort normal and breath sounds normal. Abdominal: Soft. Bowel sounds are normal. Musculoskeletal: She exhibits edema and tenderness. LUE: swelling s/p fall 01/04/2020 Neurological: She is alert and oriented to person, place, and time. Skin: Skin is warm and dry. Capillary refill takes less than 2 seconds. Psychiatric: She has a normal mood and affect. Her behavior is normal. Nursing note reviewed. Assessment/Plan Left hand pain - s/p fall at home 01/04/2020. Hand/wrist is swollen. Continue Meriden PRN pain. Fall prevention discussed - XR HAND 3+ VW LEFT; Future Sickle cell anemia with pain - SS anemia with facial swelling this AM, multiple joint pains. Patient was recently hospitalized for sickling crisis, defers on transfer to ER this time. Patient advised to maintain good hydration. Arthralgia, unspecified joint - Continue conservative pain management with Meriden Hypertension, unspecified type - BP elevated on arrival, asymptomatic and stable, on Amlodipine. Need for pain control discussed. Medication compliance encouraged. Advised to consider adopting DASH diet plan - hydroCHLOROthiazide 12.5 mg capsule; Take 1 capsule by mouth daily. Dispense: 90 capsule; Refill:0 Preventive Care: Medication reconciliation, patient education and anticipatory guidance completed. All questions and concerns addressed. AVS given, handout on Contusion and Fall provided. Return in about 3 months (around 04/08/2020), or if symptoms worsen or fail to improve. Follow up with PCP as scheduled, PRN concerns . Sid Mcbride MD, MPH, [facility] Individual Pension Consultant, Department of Family Medicine 01/07/2020 4:26 PM Olga Mcdonnell RN - 01/07/2020 2:20 PM CDT Brennon Duffy is a 39 year old female in office for the following: Chief Complaint Patient presents with FACIAL SWELLING admitted [facility] 12/22/19 FOOT SWELLING All vitals taken. Allergies reviewed. All medications reviewed. Fall risk assessed. Level of pain 5. [id number] - [place], [place] - [address] Olga Tsai RN 01/07/2020 3:03 PM documented in this encounter Plan of Treatment Date Type Specialty Care Team Description 02/19/2020 Office Visit Oncology Michelet Lao MD [address] [place], [place] [address] [phone] Name Type Priority Associated Diagnoses Date/Ti me XR HAND 3+ VW LEFT IMAGING Routine Left hand romina n 01/07/2020 4:21 PM CDT Fall, initial en counter Left wrist pain Name Type Priority Associated Diagnoses Order S chedule XR HAND 3+ VW LEFT IMAGING Routine Left hand romina n Expected: 01/07/2020, Fall, initial en counter Expires: 01/06/2021 Left wrist pain Health Maintenance Due Date Last Done Comments [...] encounter Visit Diagnoses Diagnosis Left hand pain - Primary Pain in limb Left wrist pain Pain in joint, forearm Fall, initial encounter 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 Arthralgia, unspecified joint Hypertension, unspecified type documented in this encounter Insurance Payer Benefit Plan / Subscriber ID Effective Phone Address T ype Group [facility] [id number] 2017-Pres Medica re HEALTHCARE - HEALTHCARE ent Adv HM O MANAGED DUAL COMPLETE MEDICARE HMO TMHP MEDICAID OF xxxxxxxxx 2019-Pres [phone] [address] [facility] ent [id number] [place] [address] documented as of this encounter
--- OUTSIDE RECORDS SUMMARY | 2020-02-23 08:20 | XMS REPORT | Summary of Care ---
:1980 Author Organization [facility] Address [address] [place] [address] Care Team Providers Name Role Phone Naeem Guaman Unavailable Thuy Jay MD Primary Care Provider Reason for Visit Reason Comments Assessment Triage Encounter Details Date Type Department Care Team Description 01/07/2020 Telephone [facility] Family Jayson Jay A ssessment (Triage) Medicine - [place] [facility] [address] [place] [id number] [place], [place] [phone] Allergies Active Allergy Reactions Severity Noted Date Comments Ebk-Mm-Fil-Atropine-Hyosc- Unknown - See 10/01/2014 seizure Scop comments [...] of 01/07/2020) Active Problems Problem Noted Date Obesity (BMI [...] Treatment Date Type Specialty Care Team Description 01/07/2020 Urgent Care Family Medicine Provider, [facility] 02/19/2020 Office Visit Oncology Michelet Lao MD [address] [place], [place] [address] [phone] Health Maintenance Due Date Last Done Comments [...] Effective Phone Address T ype Group Dates [employer] [id number] 2017-Pres Medica re HEALTHCARE - HEALTHCARE ent Adv HM O MANAGED DUAL COMPLETE MEDICARE HMO [facility] MEDICAID OF xxxxxxxxx 2019-Pres [phone] [place] [phone] [place] [address] documented as of this encounter
--- OUTSIDE RECORDS SUMMARY | 2020-02-23 08:20 | XMS REPORT | Summary of Care ---
:1980 Author Organization [facility] - Health Address [address] [place] [address] Care Team Providers Name Role Phone Naeem Guaman Unavailable Thuy Jay MD Primary Care Provider Encounter Details Date Type Department Care Team Description 01/07/2020 Orders Only [facility] Doctor Unassigned, No [address] [facility] [place] [address] [address] [place] [address] Allergies Active Allergy Reactions Severity Noted Date Comments Zmt-Nb-Uzt-Atropine-Hyosc- Unknown - See 10/01/2014 seizure Scop comments [...] Office Visit Oncology Michelet Lao MD [address] [place], [place] [address] [phone] Health Maintenance Due Date Last Done Comments [...] Name Priority Date/Time Associated Diagnosis Comme nts CONSENT/REFUSAL FOR Routine 01/07/2020 4:00 PM DIAGNOSIS AND TREATMENT CDT ASSIGNMENT OF BENEFITS Routine 01/07/2020 3:59 PM CDT documented in this encounter Results Not on filedocumented in this encounter Insurance Payer Benefit Plan / Subscriber ID Effective Phone Address T e Group Dates [facility] [id number] 2017-Pres Med[facility] HEALTHCARE - HEALTHCARE ent Adv HM O MANAGED DUAL COMPLETE MEDICARE HMO [id number] MEDICAID OF xxxxxxxxx 2019-Pres [phone] [place] ent [phone] [place] [address] documented as of this encounter
--- OUTSIDE RECORDS SUMMARY | 2020-02-23 08:20 | XMS REPORT | Summary of Care ---
:1980 Author Organization [facility] - Health Address [address] [place] [address] Care Team Providers Name Role Phone Naeem Guaman Unavailable Thuy Jay MD Primary Care Provider Encounter Details Date Type Department Care Team Description 12/23/2019 Orders Only [facility] Doctor Unassigned, No [address] [facility] [place] [address] [address] [place] [address] Allergies Active Allergy Reactions Severity Noted Date Comments Voq-Fp-Buc-Atropine-Hyosc- Unknown - See 10/01/2014 seizure Scop comments [...] as of this encounter (statuses as of 12/30/2019) Medications Medication Sig Dispensed Refills Start Date [...] as of this encounter (statuses as of 12/30/2019) Active Problems Problem Noted Date Obesity (BMI 30-39.9) 01/30/2019 Atypical chest pain 01/28/2019 LANE (dyspnea on exertion) 01/27/2019 Sickle cell pain crisis 01/27/2019 History of acute myocardial infarction 07/08/2017 History of CVA (cerebrovascular accident) 07/08/2017 Anxiety Depression Hypertension Seizures Sickle cell anemia documented as of this encounter (statuses as of 12/30/2019) Resolved Problems Problem Noted Date Resolved Date Foot pain, right 11/29/2015 07/08/2017 documented as of this encounter (statuses as of 12/30/2019) Social History Tobacco Use Types Packs/Day Years [...] Office Visit Oncology Michelet Lao MD [address] [place], [place] [address] [phone] Health Maintenance Due Date Last Done Comments [...] Comme nts HOME HEALTH - OTHER Routine 12/23/2019 12:01 AM CDT documented in this encounter Results Not on filedocumented in this encounter Insurance Payer Benefit Plan / Subscriber ID Effective Phone Address T e Group Dates [facility] [id number] 2017-Pres [facility] HE[facility] - HEALTHCARE ent Adv HM O MANAGED DUAL COMPLETE MEDICARE HMO [facility] MEDICAID OF xxxxxxxxx 2019-Pres [phone] [facility] ent [phone] [place] [address] documented as of this encounter
--- OUTSIDE RECORDS SUMMARY | 2020-02-23 08:21 | XMS REPORT | Summary of Care ---
:1980 Author Organization [facility] Address [address] [place] [address] Care Team Providers Name Role Phone Naeem Guaman Unavailable Thuy Jay MD Primary Care Provider Reason for Visit Reason Comments Follow-up F- up from Urgent Care - ( f eet swelling ) Encounter Details Date Type Department Care Team Description 01/26/2020 Office Visit [facility] Pediatric Jayson Jay eripheral edema (Primary Dx); and Adult Primary AMD Sickle cell anemia with pain; Care- [address] Essential hypertension; [address], [place] Nocturnal cough; Drive, [address] [id number] Chronic insomnia; [place], [place] [phone] Myalgia [id number] [phone] Allergies Active Allergy Reactions Severity Noted Date Comments Bel-Gh-Dcm-Atropine-Hyosc- Unknown - See 10/01/2014 seizure Scop comments [...] See comments 12/18/2019 "Causes seizure when xanax ernestoav es the system" Ondansetron Hcl (Pf) Unknown - See 05/30/2015 comments documented as of this encounter (statuses as of 01/26/2020) Medications Medication Sig Dispensed Refills Start End Status Date Date triamcinolone acetonide 0 10/27/19 Active (KENALOG) 0.1 % 16 ointment proMETHazine 0 10/12/19 Active (PHENERGAN) 25 mg 16 tablet ibuprofen (MOTRIN) 600 0 10/12/19 Active mg tablet 16 HYDROcodone-acetaminoph Take 2 0 11/10/19 Active en (NORCO) 10-325 mg tablets by 16 tablet mouth 4 (four) times daily. foLIC acid (FOLATE) 1 Take 1 mg by 0 Active mg tablet mouth. mirtazapine 45 mg Take 45 mg by 0 Active tablet mouth. albuterol 90 Inhale 2 1 Inhaler 1 01/22/20 Active mcg/actuation Puffs every 6 19 inhalerIndications: SOB (six) hours (shortness of breath) as needed for Wheezing or Shortness of Breath. hydrALAZINE 25 mg Take 1 tablet 60 tablet 5 01/26/20 Active tabletIndications: by mouth 2 20 Essential hypertension (two) times daily. famotidine 40 mg Take 1 tablet 30 tablet 5 01/26/20 Active tabletIndications: by mouth at 20 Nocturnal cough bedtime. ramelteon 8 mg Take 1 tablet 30 tablet 2 01/26/20 A ctive tabletIndications: by mouth at 20 Chronic insomnia bedtime as needed for Insomnia. tiZANidine 2 mg Take 1-2 60 tablet 2 01/26/20 Acti ve tabletIndications: tablets by 20 Myalgia mouth every 8 (eight) hours as needed (pain). clonazePAM 1 mg tablet Take 1 mg by 0 Active mouth. amLODIPine 2.5 mg Take 1 tablet 90 tablet 1 01/25/20 Discontinued tabletIndications: LANE by mouth 19 020 (dyspnea on exertion), daily. Essential hypertension tiZANidine 2 mg Take 1-2 60 tablet 2 06/10/20 Disc ontinued tabletIndications: tablets by 19 020 (Reorder) Right arm pain mouth every 8 (eight) hours as needed (pain). hydroCHLOROthiazide Take 1 90 capsule 0 01/07/20 Discontinued 12.5 mg capsule by 020 (Dose capsuleIndications: mouth daily. adjustment) Hypertension, unspecified type hydroCHLOROthiazide Take 1 90 capsule 0 01/26/20 Discontinued 12.5 mg capsule capsule by 020 mouth once daily as needed. USE VERY SPARINGLY documented as of this encounter (statuses as of 01/26/2020) Active Problems Problem Noted Date Elevated TSH 01/26/2020 Overview: 01/26/20: Normal free T4, plan to repeat in 12 weeks, will consider tx of subclinical hypothyroidism if she is symptomatic. Left hand pain 01/07/2020 Left wrist pain [...] Sign Reading Time Taken Comments Blood Pressure 134/90 01/26/2020 11:45 AM CDT Pulse 74 01/26/2020 11:45 AM CDT Temperature - - Respiratory Rate - - Oxygen Saturation - - Inhaled Oxygen Concentration - - Weight - - Height - - Body Mass Index - - documented in this encounter Patient Instructions Patient InstructionsJayson Jay MD - 01/26/2020 11:45 AM CDT Patient Education Coronavirus Disease 2019 (COVID-19): Prevention The best prevention is to not have contact with the SARS-CoV-2 virus. There is no vaccine yet. Canceling travel and other outings Stay informed about COVID-19 in your area. Follow local instructions about being in public. Be awareof events in your community that may be postponed or canceled, such as school and sporting events. You may be advised not to attend public gatherings. You will be advised to stay at least 6 feet from others as much as possible. This is called "social distancing." You may be advised to stay at home and isolate yourself as much as possible if COVID-19 is in your area. You may hear terms such as "self isolate, "quarantine," stay at home, snf in place, and lockdown. The CDC advises that people should not travel to areas where there are COVID-19 outbreaks right now for any reason that is not urgent. For the most current CDC travel advisories, visit the CDC website at www.cdc.gov/coronavirus/2019- ncov/travelers.Dont go on cruises or do non-essential travel right now. When you are at home Wash your hands often. Use soap and clean, running water for at least 20 seconds. If you don't have access to soap and water, use an alcohol-based hand stock trader often. Make sure it has at least 60% alcohol. Don't touch your eyes, nose, or mouth unless you have clean hands. Dont kiss someone who is sick. If you need to cough or sneeze, do it into a tissue. Then throw the tissue into the trash. If youdon't have tissues, cough or sneeze into the bend of your elbow. When possible, don't touch "high-touch" shared surfaces such as doorknobs and handles, cabinet handles, and light switches. Clean frequently-touched home surfaces often with disinfectant. This includes desk surfaces, printers, phones, kitchen counters, tables, fridge door handle, bathroom surfaces, and any soiled surface. Closely follow disinfectant label instructions. Go to the CDCs detailed cleaning website at www.c dc.gov/coronavirus/2019-ncov/prepare/cleaning-disinfection.html. Check your home supplies. Consider keeping a 2-week supply of medicines, food, and other needed household items. Make a plan for childcare, work, and ways to stay in touch with others. Know who will help you ifyou get sick. Don't be around people who are sick. There is no evidence right now that animals spread SARS-CoV-2. But it's always a good idea to wash your hands after touching any animals. Don't touch animals that may be sick. Dont share eating or drinking utensils with sick people. If you leave home Stay at least 6 feet away from all people. When possible, don't touch "high-touch" public surfaces such as doorknobs and handles, cabinet handles, and light switches. If you touch these surfaces, try to clean them first with a disinfecting wipe. Or touch them using a tissue or paper towel. Use an alcohol-based hand stock trader often. Make sure it has at least 60% alcohol. Don't touch your eyes, nose, or mouth unless you have clean hands. If you need to cough or sneeze, do it into a tissue. Then throw the tissue into the trash. If youdon't have tissues, cough or sneeze into the bend of your elbow. Avoid public gatherings. The CDC advises wearing a cloth face mask in public. During a public health emergency, medical face masks may be reserved for healthcare workers. You may need to make a cloth face mask of your own. You can do this using a bandana, T- shirt, or other cloth. The CDC has instructions on how to make a mask. If you are at a work site Stay at least 6 feet away from all people. Don't shake hands with anyone. Dont have in-person meetings. Meet over phone or video. Wash your hands often. Use soap and clean, running water for at least 20 seconds. If you don't have access to soap and water, use an alcohol-based hand stock trader often. Make sure it has at least 60% alcohol. Don't touch your eyes, nose, or mouth unless you have clean hands. The CDC advises wearing a cloth face mask in public. During a public health emergency, medical face masks may be reserved for healthcare workers. You may need to make a cloth face mask of your own. You can do this using a bandana, T- shirt, or other cloth. The CDC has instructions on how to make a mask. When possible, don't touch "high-touch" public surfaces such as doorknobs and handles, cabinet handles, and light switches. If you touch these surfaces, clean them first with a disinfecting wipe. Ortouch them using a tissue or paper towel. Use office adair one person at a time. Consider not having office coffee or tea, or group foods. Dont have meals in groups. Clean work surfaces often with disinfectant. This includes desk surfaces, photocopier, printer, phones, kitchen counters, fridge door handle, bathroom surfaces, and others. Dont touch other peoples personal work tools, such as phones, keyboards, pens, and other items. Dont touch other peoples eating or drinking utensils. If you need to cough or sneeze, do it into a tissue. Then throw the tissue into the trash. If youdon't have tissues, cough or sneeze into the bend of your elbow. If you feel sick in any way, go home and stay home. If you have been exposed to a person with COVID-19 If you've been exposed within that last 14 days to someone who is suspected of having COVID-19 or has tested positive for it: Call your healthcare provider and follow all instructions. Your activities and where you go likely will be restricted for up to 2 weeks. Check your community's instructions about activity restrictions. You may be directed to stay home, or "self-isolate." Take your temperature every morning and evening for at least 14 days. This is to check for fever.Keep a record of the readings. Watch for symptoms of the virus. Call your provider if you have symptoms. Call your provider first before going to any clinic or hospital. See the CDC's symptom checker dump grounds. Stay home if you are sick for any reason. When to call your healthcare provider Call your healthcare provider if think you have COVID-19 symptoms. These can include fever, cough, and trouble breathing. They may also include body aches, sore throat, or diarrhea. Dont go to a healthcare facility before speaking to a healthcare provider. Last modified date: 11/24/2019 [employer] last reviewed this educational content on 11/19/201919996410-8419 [employer] [address] [place] [address]. All rights reserved. This information is not intended as a substitute for professional medical care. Always follow your healthcare professional's instructions. documented in this encounter Progress Notes Jayson Jay MD - 01/26/2020 11:45 AM CDT Cc: Chief Complaint Patient presents with Follow-up F- up from Urgent Care - ( feet swelling ) HPI Brennon Duffy is a 39 year old female with sickle cell disease who presents today for b/l leg swelling. She also c/o chronic nocturnal cough. Additionally she requests refills of tizanidine for muscle spasms/pain. Her Wire Tinner Dr. Guaman supplies her with clonazepam and Sturgis-10 to helpher manage her pain and anxiety related to her SCD but she also requests medication to help her sleep. No SI. Edema or swelling Location: Bilateral lower extremities. Duration: About the past month. Onset: Gradual. Timing: Constant. Progression: Waxes and wanes. Relieved by: HCTZ. Worsened by: Standing, walking. Ineffective treatments: Elevation. Associated symptoms: Musculoskeletal pain. Pertinent negatives: Denies SOB, orthopnea, or PND. Risk factors: Sickle cell disease, HTN (uncontrolled in recent weeks), is on a CCB (amlodipine). Cough Cough characteristics: Productive Sputum characteristics: light yellow. Severity: Moderate Duration: years. Timing: Intermittent Progression: Unchanged Chronicity: Chronic Smoker: no Context comment: Nocturnal cough Relieved by: Nothing Associated symptoms: myalgias Allergies Brennon is allergic to [id number]-wtbynifb-mqcyq-pedw; fentanyl; morphine; morphine; reglan [metoclopramide hcl]; stadol [butorphanol tartrate]; stadol [butorphanol tartrate]; toradol [ketorolac tromethamine]; toradol [ketorolac tromethamine]; tramadol; trazodone; trazodone; xanax [alprazolam]; and zofran [ondansetron hcl (pf)]. Medications Outpatient Medications Prior to Visit Medication Sig Dispense Refill hydroCHLOROthiazide 12.5 mg capsule Take 1 capsule by mouth once daily as needed. USE VERY SPARINGLY 90 capsule 0 hydroCHLOROthiazide 12.5 mg capsule Take 1 capsule by mouth daily. 90 capsule 0 tiZANidine 2 mg tablet Take 1-2 tablets [...] file Gets together: Not on file Attends muslim service: Not on file Active member of [...] Cancer Paternal Grandfather Review of Systems Constitutional: Negative. HENT: Negative. Eyes: Negative. Respiratory: Positive for cough. Cardiovascular: Positive for leg swelling. Gastrointestinal: Negative. Genitourinary: Negative. Musculoskeletal: Positive for arthralgias, gait problem, joint swelling and myalgias. Skin: Negative. Neurological: Positive for weakness (LUE). Psychiatric/Behavioral: Positive for sleep disturbance. Negative for suicidal ideas. The patient is nervous/anxious. Endocrine: Endocrine negative Vital Signs BP 134/90 | Pulse 74 Physical Exam Constitutional: She is oriented to person, place, and time. She appears well- developed and well-nourished. No distress. HENT: Mouth/Throat: Mucous membranes are normal. Eyes: Pupils are equal, round, and reactive to light. Scleral icterus (slight) is present. Conjunctiva pale Neck: Neck supple. No thyromegaly present. Cardiovascular: Normal rate, regular rhythm and intact distal pulses. Exam reveals no gallop and no friction rub. Murmur (II/, guido) heard. Pulmonary/Chest: Effort normal and breath sounds normal. She has no wheezes. She has no rales. Abdominal: Soft. Bowel sounds are normal. She exhibits no distension and no mass. There is no tenderness. Musculoskeletal: She exhibits no edema. Lymphadenopathy: She has no cervical adenopathy. Neurological: She is alert and oriented to person, place, and time. She exhibits abnormal muscle tone (weakness and contracture of the LUE/hand). Gait (using rollator walker but has to be pushed on it while sitting, can't self-propel) abnormal. Skin: Skin is warm and dry. No rash noted. There is pallor. Psychiatric: She has a normal mood and affect. Her behavior is normal. Nursing note and vitals reviewed. LABS: CBC CMP WBC (10*3/L) Date Value 01/29/2019 19.70 (H) NA (mmol/L) Date Value 01/29/2019 144 RBC (10*6/L) Date Value 01/29/2019 1.97 (L) K (mmol/L) Date Value 01/29/2019 4.7 PLT (10*3/L) Date Value 01/29/2019 219 CALCIUM (mg/dL) Date Value 01/29/2019 9.3 HGB (g/dL) Date Value 01/29/2019 7.9 (L) CL (mmol/L) Date Value 01/29/2019 106 HCT (%) Date Value 01/29/2019 20.4 (L) BUN (mg/dL) Date Value 01/29/2019 11 LIPID PANEL CREATININE (mg/dL) Date Value 01/29/2019 0.54 CHOL (mg/dL) Date Value 01/27/2019 189 GLUCOSE (mg/dL) Date Value 01/29/2019 99 LDL CHOL (mg/dL) Date Value 01/27/2019 107 CO2 TOTAL (mmol/L) Date Value 01/29/2019 30 HDL (mg/dL) Date Value 01/27/2019 47 (L) ALBUMIN Date Value Ref Range Status 01/29/2019 3.8 3.5 - 5.0 g/dL Final TRIG (mg/dL) Date Value 01/27/2019 175 (H) T PROTEIN Date Value Ref Range Status 01/29/2019 8.0 6.3 - 8.2 g/dL Final TSH TOTAL BILI Date Value Ref Range Status 01/29/2019 2.2 (H) 0.1 - 1.1 mg/dL Final TSH (mIU/L) Date Value 01/27/2019 1.58 No components found for: BILIUNCOM No results found for: BILICONJ ALT(SGPT) Date Value Ref Range Status 01/29/2019 99 (H) 9 - 51 U/L Final AST(SGOT) Date Value Ref Range Status 01/29/2019 165 (H) 13 - 40 U/L Final ALK PHOS Date Value Ref Range Status 01/29/2019 233 (H) 34 - 122 U/L Final Assessment/Plan Diagnoses and all orders for this visit: Peripheral edema The patient was counseled to elevate the legs whenever possible, get enough hours of recumbent sleep, follow a low sodium diet, and consider compression hose. Check labs as noted. Venous duplex of the lower extremities is not warranted given she is not edematous at this time. I am switching her anti hypertensive medication from amlodipine to hydralazine in hopes of decreasing her risk of future edema flare-ups. I prefer for her not to use HCTZ given it may increase her risk of sickling. - CBC WITH DIFF; Standing - COMP. METABOLIC PANEL (47594); Standing - LIPID PANEL (26552)(TOTAL CHOLESTEROL, TRIGLYCERIDES, HDL); Standing - THYROID STIMULATING HORMONE; Standing - FREE T4; Standing - N-TERMINAL PRO-BNP; Standing Sickle cell anemia with pain, Anxiety Management per Hematology. Follow-up with Hematology as scheduled/planned. - CBC WITH DIFF; Standing - COMP. METABOLIC PANEL (47441); Standing Essential hypertension The patient's blood pressure is uncontrolled, amlodipine is likely putting her at higher risk for edema, and HCTZ can increase her risk for sickling--she should stop both and start hydralazine as noted. The potential side effects of the medication were reviewed with the patient who voiced understanding. The low sodium DASH diet was reviewed with the patient and patient education materials were provided in printed form. The patient was instructed to self monitor her blood pressure once daily varying the times when it is checked and to bring the record of readings to each office visit. The patient should follow-up sooner if the blood pressure is trending >/= 130/80. Baseline EKG is UTD. - hydrALAZINE 25 mg tablet; Take 1 tablet by mouth 2 (two) times daily. - CBC WITH DIFF; Standing - COMP. METABOLIC PANEL (20496); Standing - LIPID PANEL (34526)(TOTAL CHOLESTEROL, TRIGLYCERIDES, HDL); Standing - THYROID STIMULATING HORMONE; Standing - FREE T4; Standing - N-TERMINAL PRO-BNP; Standing Nocturnal cough We discussed the Ddx of chronic nocturnal cough including common causes such as asthma, allergic rhinitis, and GERD. Will treat her empirically for GERD. The pathophysiology of reflux was discussed.Anti-reflux measures such as raising the head of the bed, avoiding tight clothing or belts, avoidingeating late at night and not lying down shortly after mealtime and achieving weight loss were discuss ed. The patient was counseled to avoid ASA, NSAID's, caffeine, peppermints, alcohol and tobacco. Explained OTC H2 blockers and/or antacids are often very helpful for PRN use, however, for chronic or daily symptoms, prescription strength H2 blockers or a trial of PPI's should be used. I explained that although PPI's are extremely effective, they can have serious side effects and these were reviewed with the patient. Prescribed therapy: Famotidine. UGI series is not indicated unless a therapeutictrial is unsuccessful, and a GI consult and EGD are not indicated unless symptoms persist despite therapy. The patient should alert me if there are persistent symptoms, dysphagia, weight loss, or GI bleeding. - famotidine 40 mg tablet; Take 1 tablet by mouth at bedtime. Chronic insomnia Discussed the medication treatment options for the patient's sleep disorder. We decided upon a trial of ramelteon given she is allergic to trazodone. The potential side effects of this drug were reviewed and the patient voiced understanding. I cautioned her not to take it at the same time as her Sturgis or clonazepam. The patient declined referral for a sleep study or Psychiatry consultation. We discussed healthy ways of coping with insomnia including good sleep hygiene. Thyroid function testingis due. Follow-up has been scheduled but the patient understands she can follow-up even sooner if her insomnia symptoms don't improve or if other mental health issues develop. - ramelteon 8 mg tablet; Take 1 tablet by mouth at bedtime as needed for Insomnia. - THYROID STIMULATING HORMONE; Standing - FREE T4; Standing Myalgia, Muscle spasms Stable. Continue current pharmacotherapy. - tiZANidine 2 mg tablet; Take 1-2 tablets by mouth every 8 (eight) hours as needed (pain). - COMP. METABOLIC PANEL (55694); Standing - THYROID STIMULATING HORMONE; Standing - FREE T4; Standing Plan of care, desired health behaviors, goals, [...] at a future visit. If applicable, the [facility] database was accessed to review any controlled substance prescription claims data. If the patient is taking prescribed medications, the [employer] prescription claims data in [employer] was reviewed to assess patient compliance with the medication treatment plan. COVID-19 precautions given including frequent handwashing, social distancing, cleaning and disinfecting, indications for testing, etc. Follow-up: Return in about 3 months (around 04/27/2020) for routine follow-up. Follow-up sooner if any problems or concerns. Scribe Attestation Susi Page , am scribing for, and in the presence of, Jayson Jay MD who performed the services described here-in. Susi March, January 26, 2020, 11:52 AM Physician Attestation I, Jayson Jay MD, personally performed the services described in this documentation , as scribed by, Susi March in my presence and it is both accurate and complete. Jayson Jay MD January 26, 2020, 11:52 AM documented in this encounter Plan of Treatment Date Type Specialty Care Team Description 02/19/2020 Office Visit Oncology Michelet Lao MD [address] [place], [place] [address] 04/27/2020 Office Visit Family Medicine Jose Jya MD [address] [place] [phone] Health Maintenance Due Date Last Done Comments PAP SMEAR 2000 Breast Cancer Screening 2019 (MAMMOGRAM) DTaP,Tdap,and Td Vaccines (1 - 03/30/2020 P ostponed from 1990 Tdap) (Refused) PNEUMOCOCCAL 0-64 YEARS COMBINED 03/30/2020 Postponed from 1985 SERIES (1 of 3 - PCV13) (Refused ) INFLUENZA VACCINE (Season Ended) 2020 Postponed from 04/20/2020 (Parent Refused) Depression Screening 01/06/2021 01/07/2020 documented as of this encounter Results N-TERMINAL PRO-BNP (01/26/2020 1:17 PM CDT) Pathologist Sig nature NT-proBNP 763 (H) <=125 pg/mL [facility] Specimen Blood Narrative Performed At Biotin has been reported to cause a negative [facility] bias, interpret results relative to patient's use of biotin. Performing Organization Address [facility] Phone Number [facility] CLIA: [id number], [address] [place] [address] FREE T4 (01/26/2020 1:17 PM CDT) Pathologist Sig nature FREE T4 1.50 0.78 - 2.20 ng/dL [facility] Specimen Blood Performing Organization Address [facility] Phone Number [facility] CLIA: [id number], [address] [place] [address] THYROID STIMULATING HORMONE (01/26/2020 1:17 PM CDT) Pathologist Sig nature TSH 6.80 (H) 0.45 - 4.70 mIU/L [facility] Specimen Blood Performing Organization Address [facility] Phone Number [facility] CLIA: [id number], [address] [place] [address] LIPID PANEL (54146)(TOTAL CHOLESTEROL, TRIGLYCERIDES, HDL) (01/26/2020 1:17 PM CDT) Pathologist Sig nature CHOL 191 120 - 200 mg/dL [facility] HDL 40 (L) >50 mg/dL [facility] HDLC RATIO 4.8 (H) <=4.5 [facility] TRIG 177 (H) 30 - 170 mg/dL [facility] LDL CHOL 116 <=160 mg/dL [facility] VLDL 35 5 - 60 mg/dL [facility] Specimen Blood Performing Organization Address City/State/Zipcode Phone Number [facility] CLIA: [id number], [address] COMP. METABOLIC PANEL (37603) (01/26/2020 1:17 PM CDT) NA 138 135 - 145 [facility] mmol/L [facility] K 3.9 3.5 - 5.0 [facility] mmol/L [facility] CL 102 98 - 108 mmol/L [facility] CO2 TOTAL 27 23 - 31 mmol/L [facility] AGAP 9 2 - 16 [facility] BUN 7 7 - 23 mg/dL [facility] GLUCOSE 91 70 - 110 mg/dL [facility] CREATININE 0.60 0.50 - 1.04 [facility] mg/dL [facility] TOTAL BILI 4.0 (H) 0.1 - 1.1 mg/dL [facility] CALCIUM 9.7 8.6 - 10.6 [facility] mg/dL [facility] T PROTEIN 10.4 (H) 6.3 - 8.2 g/dL [facility] ALBUMIN 4.5 3.5 - 5.0 g/dL [facility] ALK PHOS 202 (H) 34 - 122 U/L [facility] ALTv 73 (H) 5 - 35 U/L [facility] AST(SGOT) 172 (H) 13 - 40 U/L [facility] eGFR Calculation 110.7 mL/min/1.73m2 [facility] ([facility] LABORATORY Cook Islander) eGFR Calculation 134.2 mL/min/1.73m2 [facility] () [facility] Specimen Blood Narrative Performed At Association of Glomerular Filtration Rate (GFR) [facility] and Staging of Kidney Disease* + + +- + | GFR (mL/min/1.73 m2) | With Kidney Damage | Without Kidney Damage + + +- + | >90 | Stage one | Normal + + +- + | 60-89 | Stage two | Decreased GFR + + +- + | 30-59 | Stage three | Stage three + + +- + | 15-29 | Stage four | Stage four + + +- + | <15 (or dialysis) | Stage five | Stage five + + +- + *Each stage assumes the associated GFR level has been in effect for at least three months. Stages 1 to 5, with or without kidney disease, indicate chronic kidney disease. Notes: Determination of stages one and two (with eGFR >59mL/min/1.73 m2) requires estimation of kidney damage for at least three months as defined by structural or functional abnormalities of the kidney, manifested by either: Pathological abnormalities or Markers of kidney damage (including abnormalities in the composition of the blood or urine or abnormalities in imaging tests). 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 ent [phone] [place] [address] documented as of this encounter
--- OUTSIDE RECORDS SUMMARY | 2020-02-23 08:21 | XMS REPORT | Summary of Care ---
:1980 Author Organization [facility] Address [address] [place] [address] Care Team Providers Name Role Phone Naeem Guaman Unavailable Thuy Jay MD Primary Care Provider Reason for Referral (Routine) Status Reason Specialty Diagnoses / Referred By Referred To Procedures Contact Contact New Request Cardiology Diagnoses Peripheral edema Elevated brain natriuretic peptide (BNP) level Hb-SS disease without crisis Jayson Jay Procedures CONSULT/REFERRAL CARDIOLOGY MD Thuy [address] [place] [address] [place] [address] Reason for Visit Reason Comments Referral/consult Encounter Details Date Type Department Care Team Description 01/26/2020 Case Management [facility] Pediatric Jose Jay Referral/consult and Adult Primary MD Thuy Care- [address] [place], [place] [address], [address] [address] [place], [place] [phone] [address] [phone] Allergies Active Allergy Reactions Severity Noted Date Comments Qnk-Pc-Kbr-Atropine-Hyosc- Unknown - See 10/01/2014 seizure Scop comments [...] Office Visit Oncology Michelet Lao MD [address] [place], [place] [address] [phone] 04/27/2020 Office Visit Family Medicine Jose Jay MD [address] [place], [place] [phone] Health Maintenance Due Date Last [...] Diagnoses Diagnosis Peripheral edema - Primary Edema Elevated brain natriuretic peptide (BNP) level Other nonspecific findings on examinatio n of blood Hb-SS disease without crisis documented in this encounter Insurance Payer Benefit Plan / Subscriber ID Effective Phone Address T [facility] [id number] 2017-Pres Medica [facility] HEALTHCARE - HEALTHCARE ent Adv HM O MANAGED DUAL COMPLETE MEDICARE HMO [facility] MEDICAID OF xxxxxxxxx 2019-Pres [phone] [address] Med[facility] ent [phone] [place] [address] documented as of this encounter
--- OUTSIDE RECORDS SUMMARY | 2020-02-23 08:21 | XMS REPORT | Summary of Care ---
:1980 Author Organization [facility] Address [address] [place] [address] Care Team Providers Name Role Phone Naeem Guaman Unavailable Thuy Jay MD Primary Care Provider Reason for Visit Reason Comments Follow-up F- up from Urgent Care - ( f eet swelling ) Encounter Details Date Type Department Care Team Description 01/26/2020 Office Visit [facility] Pediatric Jayson Jay eripheral edema (Primary Dx); and Adult Primary AMD Sickle cell anemia with pain; Care- [address] Essential hypertension; [address] [place], [place] Nocturnal cough; Drive, [address] [address] Chronic insomnia; [place], [place] [phone] Myalgia [address] [phone] Allergies Active Allergy Reactions Severity Noted Date Comments Wkn-Uq-Lhw-Atropine-Hyosc- Unknown - See 10/01/2014 seizure Scop comments [...] as "self isolate, "quarantine," stay at home, usp in place, and lockdown. The CDC advises [...] soap and water, use an alcohol-based hand camouflage assembler often. Make sure it has at least [...] or paper towel. Use an alcohol-based hand camouflage assembler often. Make sure it has at least [...] soap and water, use an alcohol-based hand camouflage assembler often. Make sure it has at least [...] clinic or hospital. See the CDC's symptom supervisor food checkers and cashiers. Stay home if you are sick for any reason. When to call your healthcare provider Call your healthcare provider if think you have COVID-19 symptoms. These can include fever, cough, and trouble breathing. They may also include body aches, sore throat, or diarrhea. Dont go to a healthcare facility before speaking to a healthcare provider. Last modified date: 11/24/2019 myZamana last reviewed this educational content on 11/19/201919999142-2316 The [employer] [place] [address]. All rights reserved. This information is not [...] refills of tizanidine for muscle spasms/pain. Her Honey Blender Dr. Guaman supplies her with clonazepam and [employer]-10 to helpher manage her pain and anxiety [...] symptoms: myalgias Allergies Brennon is allergic to hbn-gz-cop-mtkiotql-atehq-ppfn; fentanyl; morphine; morphine; reglan [metoclopramide hcl]; stadol [...] file Gets together: Not on file Attends denominational service: Not on file Active member of [...] WITH DIFF; Standing - COMP. METABOLIC PANEL (29756); Standing - LIPID PANEL (36006)(TOTAL CHOLESTEROL, TRIGLYCERIDES, HDL); Standing - THYROID STIMULATING HORMONE; Standing - FREE T4; Standing - N-TERMINAL PRO-BNP; Standing Sickle cell anemia with pain, Anxiety Management per Hematology. Follow-up with Hematology as scheduled/planned. - CBC WITH DIFF; Standing - COMP. METABOLIC PANEL (48084); Standing Essential hypertension The patient's blood pressure [...] WITH DIFF; Standing - COMP. METABOLIC PANEL (19830); Standing - LIPID PANEL (58226)(TOTAL CHOLESTEROL, TRIGLYCERIDES, HDL); Standing - THYROID STIMULATING [...] it at the same time as her [employer] or clonazepam. The patient declined referral for [...] as needed (pain). - COMP. METABOLIC PANEL (04405); Standing - THYROID STIMULATING HORMONE; Standing - [...] at a future visit. If applicable, the [facility] database was accessed to review any controlled substance prescription claims data. If the patient is taking prescribed medications, the [place] prescription claims data in [place] was reviewed to assess patient compliance with [...] Office Visit Oncology Michelet Lao MD [address] [place], [place] [address] 04/27/2020 Office Visit Family Medicine Jose Jay MD [address] [place] [phone] Health Maintenance Due Date Last [...] patient's use of biotin. Performing Organization Address [facility] Phone Number [facility] CLIA: [id number], [address] [place] [address] FREE T4 (01/26/2020 1:17 PM CDT) Pathologist Sig nature FREE T4 1.50 0.78 - 2.20 ng/dL [facility] Specimen Blood Performing Organization Address [facility] Phone Number [facility] CLIA: [id number], [address] [place] [address] THYROID STIMULATING HORMONE (01/26/2020 1:17 PM CDT) Pathologist Sig nature TSH 6.80 (H) 0.45 - 4.70 mIU/L [facility] Specimen Blood Performing Organization Address [facility] Phone Number [facility] CLIA: [id number], [address] [place] [address] LIPID PANEL (00463)(TOTAL CHOLESTEROL, TRIGLYCERIDES, HDL) (01/26/2020 1:17 PM CDT) [...] Address City/State/Zipcode Phone Number [facility] CLIA: [id number], [address] COMP. METABOLIC PANEL (58271) (01/26/2020 1:17 PM CDT) NA 138 135 - 145 [facility] mmol/L [facility] K 3.9 3.5 - 5.0 [facility] mmol/L [facility] CL 102 98 - 108 mmol/L [facility] CO2 TOTAL 27 23 - 31 mmol/L [facility] AGAP 9 2 - 16 [facility] BUN 7 7 - 23 mg/dL [facility] GLUCOSE 91 70 - 110 mg/dL [facility] CREATININE 0.60 0.50 - 1.04 [facility] mg/dL [facility] TOTAL BILI 4.0 (H) 0.1 - 1.1 mg/dL [facility] CALCIUM 9.7 8.6 - 10.6 [facility] mg/dL [facility] T PROTEIN 10.4 (H) 6.3 - 8.2 g/dL [facility] ALBUMIN 4.5 3.5 - 5.0 g/dL [facility] ALK PHOS 202 (H) 34 - 122 U/L [facility] ALTv 73 (H) 5 - 35 U/L [facility] AST(SGOT) 172 (H) 13 - 40 U/L [facility] eGFR Calculation 110.7 mL/min/1.73m2 [facility] ([facility] LABORATORY Cambodian) eGFR Calculation 134.2 mL/min/1.73m2 [facility] () [facility] Specimen Blood Narrative Performed At Association of Glomerular Filtration Rate (GFR) [facility] and Staging of Kidney Disease* [...] Address City/State/Zipcode Phone Number [facility] CLIA: [id number], [address] [place], [place] [address] documented in this encounter Visit Diagnoses Diagnosis Peripheral edema - Primary Edema 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 Essential hypertension Unspecified essential hypertension Nocturnal cough Cough Chronic insomnia Insomnia, unspecified Myalgia Mylagia and myositis, unspecified documented in this encounter Insurance Payer Benefit Plan / Subscriber ID Effective Phone Address T ype Group [facility] [id number] 2017-Pres [facility] - HEALTHCARE ent Adv HM O MANAGED DUAL COMPLETE MEDICARE HMO [facility] MEDICAID OF xxxxxxxxx 2019-Pres [phone] [address] [facility] ent [phone] [place] [address] documented as of this encounter
[2020-02-23 08:22] LABS: Hematocrit 23.7 % (36.0-45.0); RBC Red Blood Cell Count 2.24 M/uL (3.86-4.86)
--- OUTSIDE RECORDS SUMMARY | 2020-02-23 08:22 | XMS REPORT | Summary of Care ---
:1980 Author Organization [facility] Address [address] [place] [address] Care Team Providers Name Role Phone Naeem Guaman Unavailable Thuy Jay MD Primary Care Provider Reason for Visit Reason Comments Follow-up F- up from Urgent Care - ( f eet swelling ) Encounter Details Date Type Department Care Team Description 01/26/[address] [facility] Pediatric Jayson Jay eripheral edema (Primary Dx); and Adult Primary AMD Sickle cell anemia with pain; Care- [address] Essential hypertension; [address] [place], [place] Nocturnal cough; Drive, [address] [address] Chronic insomnia; [place], [place] [phone] Myalgia [address] [phone] Allergies Active Allergy Reactions Severity Noted Date Comments Wje-Wp-Zct-Atropine-Hyosc- Unknown - See 10/01/2014 seizure Scop comments [...] as "self isolate, "quarantine," stay at home, senior living in place, and lockdown. The CDC advises [...] soap and water, use an alcohol-based hand jet dyeing machine operator often. Make sure it has at least [...] or paper towel. Use an alcohol-based hand jet dyeing machine operator often. Make sure it has at least [...] soap and water, use an alcohol-based hand jet dyeing machine operator often. Make sure it has at least [...] clinic or hospital. See the CDC's symptom fruit checker. Stay home if you are sick for any reason. When to call your healthcare provider Call your healthcare provider if think you have COVID-19 symptoms. These can include fever, cough, and trouble breathing. They may also include body aches, sore throat, or diarrhea. Dont go to a healthcare facility before speaking to a healthcare provider. Last modified date: 11/24/2019 [employer] last reviewed this educational content on 11/19/201919991650-1828 The [employer]. [address] [place] [address]. All rights reserved. This information is not [...] refills of tizanidine for muscle spasms/pain. Her Cleaner Window Dr. Guaman supplies her with clonazepam and [employer]-10 to helpher manage her pain and anxiety [...] symptoms: myalgias Allergies Brennon is allergic to iow-cm-ysm-zfszxiwu-veoua-kpkl; fentanyl; morphine; morphine; reglan [metoclopramide hcl]; stadol [...] WITH DIFF; Standing - COMP. METABOLIC PANEL (42051); Standing - LIPID PANEL (85400)(TOTAL CHOLESTEROL, TRIGLYCERIDES, HDL); Standing - THYROID STIMULATING HORMONE; Standing - FREE T4; Standing - N-TERMINAL PRO-BNP; Standing Sickle cell anemia with pain, Anxiety Management per Hematology. Follow-up with Hematology as scheduled/planned. - CBC WITH DIFF; Standing - COMP. METABOLIC PANEL (92614); Standing Essential hypertension The patient's blood pressure [...] WITH DIFF; Standing - COMP. METABOLIC PANEL (77285); Standing - LIPID PANEL (22859)(TOTAL CHOLESTEROL, TRIGLYCERIDES, HDL); Standing - THYROID STIMULATING [...] it at the same time as her [employer] or clonazepam. The patient declined referral for [...] as needed (pain). - COMP. METABOLIC PANEL (30521); Standing - THYROID STIMULATING HORMONE; Standing - [...] at a future visit. If applicable, the [facility] database was accessed to review any controlled substance prescription claims data. If the patient is taking prescribed medications, the [employer] prescription claims data in [employer] was reviewed to assess patient compliance with [...] Office Visit Oncology Michelet Lao MD [address] [place], [place] [address] 04/27/2020 Office Visit Family Medicine Jose Jay MD [address] [place] [phone] Health Maintenance Due Date Last [...] Sig nature NT-proBNP 763 (H) <=125 pg/mL [facility] Specimen Blood Narrative Performed At Biotin has been reported to cause a negative [facility] bias, interpret results relative to patient's use of biotin. Performing Organization Address [facility] Phone Number [facility] CLIA: [id number], [address] [place] [address] FREE T4 (01/26/2020 1:17 PM CDT) Pathologist Sig nature FREE T4 1.50 0.78 - 2.20 ng/dL [facility] Specimen Blood Performing Organization Address [facility] Phone Number [facility] CLIA: [id number], [address] [place] [address] THYROID STIMULATING HORMONE (01/26/2020 1:17 PM CDT) Pathologist Sig nature TSH 6.80 (H) 0.45 - 4.70 mIU/L [facility] Specimen Blood Performing Organization Address [facility] Phone Number [facility] CLIA: [id number], [address] [place] [address] LIPID PANEL (74694)(TOTAL CHOLESTEROL, TRIGLYCERIDES, HDL) (01/26/2020 1:17 PM CDT) Pathologist Sig nature CHOL 191 120 - 200 mg/dL [facility] HDL 40 (L) >50 mg/dL [facility] HDLC RATIO 4.8 (H) <=4.5 [facility] TRIG 177 (H) 30 - 170 mg/dL [facility] LDL CHOL 116 <=160 mg/dL [facility] VLDL 35 5 - 60 mg/dL [facility] Specimen Blood Performing Organization Address City/State/Zipcode Phone Number [facility] CLIA: [id number], [address] COMP. METABOLIC PANEL (18979) (01/26/2020 1:17 PM CDT) NA 138 135 - 145 [facility] mmol/L [facility] K 3.9 3.5 - 5.0 [facility] mmol/L [facility] CL 102 98 - 108 mmol/L [facility] CO2 TOTAL 27 23 - 31 mmol/L [facility] AGAP 9 2 - 16 [facility] BUN 7 7 - 23 mg/dL [facility] GLUCOSE 91 70 - 110 mg/dL [facility] CREATININE 0.60 0.50 - 1.04 [facility] mg/dL [facility] TOTAL BILI 4.0 (H) 0.1 - 1.1 mg/dL [facility] CALCIUM 9.7 8.6 - 10.6 [facility] mg/dL [facility] T PROTEIN 10.4 (H) 6.3 - 8.2 g/dL [facility] ALBUMIN 4.5 3.5 - 5.0 g/dL [facility] ALK PHOS 202 (H) 34 - 122 U/L [facility] ALTv 73 (H) 5 - 35 U/L [facility] AST(SGOT) 172 (H) 13 - 40 U/L [facility] eGFR Calculation 110.7 mL/min/1.73m2 [facility] ([facility] LABORATORY Lithuanian) eGFR Calculation 134.2 mL/min/1.73m2 [facility] () [facility] Specimen Blood Narrative Performed At Association of Glomerular Filtration Rate (GFR) [facility] and Staging of Kidney Disease* + [...] tests). Performing Organization Address City/State/Zipcode Phone Number [facility] CLIA: [id number], [address] [place], [place] [address] documented in this encounter Visit Diagnoses Diagnosis Peripheral edema - Primary Edema 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 Essential hypertension Unspecified essential hypertension Nocturnal cough Cough Chronic insomnia Insomnia, unspecified Myalgia Mylagia and myositis, unspecified documented in this encounter Insurance Payer Benefit Plan / Subscriber ID Effective Phone Address T ype Group [facility] [id number] 2017-Pres [facility] - HEALTHCARE ent Adv HM O MANAGED DUAL COMPLETE MEDICARE HMO [facility] MEDICAID OF xxxxxxxxx 2019-Pres [phone] [address] [facility] ent [phone] [place] [address] documented as of this encounter
--- OUTSIDE RECORDS SUMMARY | 2020-02-23 08:22 | XMS REPORT | Summary of Care ---
:1980 Author Organization [facility] Address [address] [place] [address] Care Team Providers Name Role Phone Naeem Guaman Unavailable Thuy Jay MD Primary Care Provider Reason for Visit Reason Comments Results Encounter Details Date Type Department Care Team Description 01/29/2020 Telephone [facility] Family Medicine Jayson Rucker MD Results - [address] [place] [address] [place] [address] [phone] Allergies Active Allergy Reactions Severity Noted Date Comments Xix-Md-Qrp-Atropine-Hyosc- Unknown - See 10/01/2014 seizure Scop comments [...] as of this encounter (statuses as of 01/30/2020) Medications Medication Sig Dispensed Refills Start Date [...] as of this encounter (statuses as of 01/30/2020) Active Problems Problem Noted Date Elevated TSH 01/26/2020 Overview: 01/26/20: Normal free T4, plan to repeat in 12 weeks, will consider tx of subclinical hypothyroidism if she is symptomatic. Muscle spasm 01/26/2020 Nocturnal cough 01/26/2020 Arthralgia, unspecified joint 01/07/2020 Obesity (BMI 30-39.9) 01/30/2019 Atypical chest pain 01/28/2019 LANE (dyspnea on exertion) 01/27/2019 Sickle cell anemia with pain 01/27/2019 History of acute myocardial infarction 07/08/2017 History of CVA (cerebrovascular accident) 07/08/2017 Anxiety Depression Hypertension Seizures Allergic rhinitis Chronic insomnia documented as of this encounter (statuses as of 01/30/2020) Resolved Problems Problem Noted Date Resolved Date Left hand pain 01/07/2020 01/26/2020 Left wrist pain 01/07/2020 01/26/2020 Fall, initial encounter 01/07/2020 01/26/2020 Foot pain, right 11/29/2015 07/08/2017 documented as of this encounter (statuses as of 01/30/2020) Social History Tobacco Use Types Packs/Day Years [...] Office Visit Oncology Michelet Lao MD [address] [place], [place] [address] [phone] 04/27/2020 Office Visit Family Medicine Jose Jay MD [address] [place] [address] [phone] Health Maintenance Due Date Last Done [...] ID Effective Phone Address T e Group [facility] [id number] 2017-Pres Medica re HEALTHCARE - HEALTHCARE ent Adv HM O MANAGED DUAL COMPLETE MEDICARE [facility] MEDICAID OF xxxxxxxxx 2019-Pres [phone] [address] Medi caid [place] ent [phone] [place] [address] documented as of this encounter
--- OUTSIDE RECORDS SUMMARY | 2020-02-23 08:23 | XMS REPORT | Summary of Care ---
:1980 Author Organization [facility] Address [address] [place] [address] Care Team Providers Name Role Phone Naeem Guaman Unavailable Thuy Jay MD Primary Care Provider Reason for Visit Reason Comments Results Encounter Details Date Type Department Care Team Description 02/02/2020 Telephone [facility] Family Medicine Jayson Rucker MD Results - [address] [place] [address] [place] [address] [phone] Allergies Active Allergy Reactions Severity Noted Date Comments Njk-Jl-Hxx-Atropine-Hyosc- Unknown - See 10/01/2014 seizure Scop comments [...] as of this encounter (statuses as of 02/03/2020) Medications Medication Sig Dispensed Refills Start Date [...] as of this encounter (statuses as of 02/03/2020) Active Problems Problem Noted Date Elevated TSH [...] as of this encounter (statuses as of 02/03/2020) Resolved Problems Problem Noted Date Resolved Date Left hand pain 01/07/2020 01/26/2020 Left wrist pain 01/07/2020 01/26/2020 Fall, initial encounter 01/07/2020 01/26/2020 Foot pain, right 11/29/2015 07/08/2017 documented as of this encounter (statuses as of 02/03/2020) Social History Tobacco Use Types Packs/Day Years [...] Office Visit Oncology Michelet Lao MD [address] [place], [place] [address] [phone] 04/27/2020 Office Visit Family Medicine Jose Jay MD [address] [place] [address] [phone] Health Maintenance Due Date Last Done [...] ID Effective Phone Address T e Group [facility] [id number] 2017-Pres Medica re HEALTHCARE - HEALTHCARE ent Adv HM O MANAGED DUAL COMPLETE MEDICARE O [facility] MEDICAID OF xxxxxxxxx 2019-Pres [phone] [address] Medi caid [place] ent [phone] [place] [address] documented as of this encounter
--- OUTSIDE RECORDS SUMMARY | 2020-02-23 08:23 | XMS REPORT | Summary of Care ---
:1980 Author Organization [facility] Address [address] [place] [id number] Care Team Providers Name Role Phone Naeem Guaman Unavailable Thuy Jay MD Primary Care Provider Reason for Visit Reason Comments Lab Results Encounter Details Date Type Department Care Team Description 01/30/2020 Telephone [facility] Pediatric and Jayson Acuña MD Lab Results Adult Primary Care- [address] [place] [address] [place] [address], [address] [place] [address] Allergies Active Allergy Reactions Severity Noted Date Comments Iln-Vo-Dop-Atropine-Hyosc- Unknown - See 10/01/2014 seizure Scop comments [...] Office Visit Oncology Michelet Lao MD [address] [place], [place] [address] [phone] 04/27/2020 Office Visit Family Medicine Jose Jay MD [address] [place] [phone] Health Maintenance Due Date Last [...] Phone Address T e Group Dates [facility] [id number] 2017-Pres Medica re HEALTHCARE - HEALTHCARE ent Adv HM O MANAGED DUAL COMPLETE MEDICARE O [facility] MEDICAID OF xxxxxxxxx 2019-Pres [phone] [address] [facility] ent [phone] [place] [address] documented as of this encounter
[2020-02-23 08:35] LABS: ALT/SGPT 56 U/L (12-78); Albumin 3.1 g/dL (3.4-5.0); Alkaline Phosphatase 189 U/L (45-117); BUN Blood Urea Nitrogen 7 mg/dL (7-18); Bicarbonate 25 mmol/L (21-32); Bilirubin Direct 1.2 mg/dL (0-0.2); Bilirubin Total 4.1 mg/dL (0.2-1.0); Glucose Level 118 mg/dL (74-106); NT PRO-BNP 204 pg/mL (<125); Protein, Total 10.4 g/dL (6.4-8.2); Sodium Level 138 mmol/L (136-145); Troponin (Emerg Dept Use Only) 0.02 ng/mL (0.0-0.045)
[2020-02-23 08:39] LABS: AST/SGOT 139 U/L (15-37); Magnesium 1.8 mg/dL (1.8-2.4)
--- NOTE | 2020-02-23 09:23 | RAD REPORT ---
EXAM DESCRIPTION: RAD - Chest Single View - 02/23/2020 9:14 am CLINICAL HISTORY: CHEST PAIN Chest pain. COMPARISON: Chest Single View dated 12/22/2019; Chest Single View dated 05/24/2019; Chest Single View d ated 04/12/2019; Chest Single View dated 03/16/2019 FINDINGS: Portable technique limits examination quality. Mild interstitial prominence is seen. Heart is moderately enlarged. No displaced fractures. IMPRESSION: Mild CHF.
[2020-02-23 09:41] LABS: Platelet Estimate ADEQ
[2020-02-23 09:42] LABS: Anisocytosis 2+; Blood Morphology Comment NOTED (NOT SEEN); Elliptocytes 1+; Macrocytosis 1+; Poikilocytosis 2+; Polychromasia 2+; Target Cells 1+
--- NOTE | 2020-02-23 10:02 | EDPHYS ---
Physician Documentation [facility] Name: Brennon Berg Age: 39 yrs Sex: Female : 1980 Arrival Date: 02/23/2020 Time: 07:[address] Private MD: ANALI Physician Spenser Luis HPI: 02/22 08:06 This 39 yrs old Black Female presents to ER via EMS with complaints of Sickle Cell pm1 Crisis. 08:06 Onset: The symptoms/episode began/occurred yesterday. Associated signs and symptoms: pm1 Pertinent positives: chest pain, SOB last night, "joint pain all over", Pertinent negatives: abdominal pain, congestion, constipation, cough, diarrhea, dysuria, earache, fever, headache, sore throat, vomiting, wheezing. Modifying factors: The patient symptoms are alleviated by Yesterday Victor relieved her pain but this morning her Victor did not help, the patient symptoms are aggravated by nothing. The patient has experienced similar episodes in the past, multiple times, chronically, and the symptoms today are exactly the same, to previous Sickle Cell Crisis. The patient has not recently seen a physician. MANAGER MEDICARE MARKETING: 10:41 LMP N/A - Hysterectomy jl7 Historical: - Allergies: 07:49 Fentanyl; hb 07:49 Morphine; hb 07:49 Reglan; hb 07:49 Stadol; hb 07:49 Toradol; hb 07:49 tramadol; hb 07:49 Trazodone; hb 07:49 Ultram; hb 07:49 Zofran; hb - Home Meds: 07:52 gabapentin 300 mg Oral cap 1 cap 3 times per day [Active]; Hydrea 500 mg Oral cap TID hb [Active]; hydrocodone-acetaminophen 10-325 mg Oral tab [Active]; hydroxyurea 500 mg Oral cap 1 cap every 3 days [Active]; Keppra 250 mg Oral tab 1 tabs 2 times per day [Active]; promethazine 25 mg Oral tab as needed [Active]; Xanax 2 mg Oral tab 2 times a day [Active]; - PMHx: 07:52 aplastic anemia; CVA; L sided weakness; Myocardial infarction; 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 - Social history:: Smoking status: Patient denies any tobacco usage or history of. ROS: 08:06 Constitutional: Negative for fever, chills, and weight loss, Eyes: Negative for injury, pm1 pain, redness, and discharge, ENT: Negative for injury, pain, and discharge, Neck: Negative for injury, pain, and swelling, Respiratory: Negative for shortness of breath, cough, wheezing, and pleuritic chest pain. 08:06 Abdomen/GI: Negative for abdominal pain, nausea, vomiting, diarrhea, and constipation, Back: Negative for injury and pain, Skin: Negative for injury, rash, and discoloration, Neuro: Negative for headache, weakness, numbness, tingling, and seizure. Patient with baseline left sided weakness due to CVA 08:06 Cardiovascular: Positive for chest pain, Negative for edema, palpitations. 08:06 Respiratory: Positive for SOB last night, Negative for cough, sputum production, wheezing. 08:06 MS/extremity: Positive for pain, of the all joints. Exam: 08:06 Head/Face: Normocephalic, atraumatic. Chest/axilla: Normal chest wall appearance and pm1 motion. Nontender with no deformity. No lesions are appreciated. 08:06 Skin: Warm, dry with normal turgor. Normal color with no rashes, no lesions, and no evidence of cellulitis. 08:06 Constitutional: The patient appears in no acute distress, alert, awake, non-toxic, well hydrated, well groomed, well nourished. 08:06 Cardiovascular: Rate: normal, Rhythm: regular, Pulses: no pulse deficits are appreciated, Edema: is not appreciated. 08:06 Respiratory: Exam negative for acute changes, respiratory distress, shortness of breath. 08:06 Abdomen/GI: Inspection: abdomen appears normal, Palpation: abdomen is soft and non-tender, in all quadrants, mass, is not appreciated, rebound tenderness, is not appreciated. 08:06 Musculoskeletal/extremity: Extremities: grossly normal except: noted in the left arm: contracture. 08:06 Neuro: Exam negative for acute changes, Orientation: is normal, Mentation: is normal. Vital Signs: 07:45 BP 184 / 126; Pulse 93; Resp 18; Temp 97.8; Pulse Ox 97% on R/A; Weight 60.78 kg; hb Height 5 ft. 2 in. (157.48 cm); Pain 10/10; 08:08 BP 183 / 116; Pulse 106; Resp 21; Pulse Ox 96% ; Pain 10/10; jl7 09:00 BP 172 / 102; Pulse 90; Resp 18; Pulse Ox 94% on R/A; Pain 10/10; hb 10:00 BP 194 / 108; Pulse 95; Resp 18; Pulse Ox 98% 2 lpm ; Pain 10/10; hb 11:30 BP 219 / 128; Pulse 100; Resp 20; Pulse Ox 95% ; sv 12:00 BP 212 / 128; Pulse 99; Pulse Ox 95% ; sv 13:00 BP 202 / 122; Pulse 96; Resp 18; Pulse Ox 94% ; sv 14:00 BP 191 / 110; Pulse 91; Resp 18; Pulse Ox 95% ; sv 07:45 Body Mass Index 24.51 (60.78 kg, 157.48 cm) hb MDM: 07:48 Patient medically screened. [facility] 09:44 Data reviewed: vital signs. Data interpreted: Pulse oximetry: on room air is 97 %. pm1 Interpretation: normal. 09:44 Counseling: I had a detailed discussion with the patient and/or guardian regarding: the pm1 historical points, exam findings, and any diagnostic results supporting the discharge/admit diagnosis, lab results, radiology results, the need for further work-up and treatment in the hospital. 09:57 Physician consultation: Juan Gill DO was called at 09:58, was contacted at 09:58, pm1 regarding admission, patient's condition, Wants CT abdomen due to elevated liver enzymes, lactate, procalcitonin, covid prior to disposition. 12:13 Physician consultation: Juan Gill DO was called at 12:13, was contacted at 12:13, pm1 regarding admission, patient's condition, and will see patient Mekhi BENSON will come down to evaluate the patient in the ER. 02/22 07:57 Order name: Basic Metabolic Panel pm1 02/22 07:57 Order name: CBC with Diff pm1 02/22 07:57 Order name: LFT's pm1 02/22 07:57 Order name: Magnesium pm1 02/22 07:57 Order name: NT PRO-BNP pm1 02/22 07:57 Order name: PT-INR pm1 02/22 07:57 Order name: Troponin (emerg Dept Use Only); Complete Time: 08:57 pm1 02/22 07:57 Order name: Retic Count; Complete Time: 09:54 pm1 02/22 07:57 Order name: Type And Screen pm1 02/22 07:57 Order name: Basic Metabolic Panel; Complete Time: 08:57 EDMS 02/22 07:57 Order name: CBC with Automated Diff; Complete Time: 09:54 EDMS 02/22 07:57 Order name: Liver (Hepatic) Function; Complete Time: 08:57 EDMS 02/22 07:57 Order name: Magnesium; Complete Time: 08:57 EDMS 02/22 07:57 Order name: NT PRO-BNP; Complete Time: 08:57 EDMS 02/22 07:57 Order name: XRAY Chest (1 view); Complete Time: 09:28 pm1 02/22 07:57 Order name: Protime (+INR); Complete Time: 08:57 EDMS 02/22 09:41 Order name: Manual Differential; Complete Time: 09:54 EDMS 02/22 09:57 Order name: Lactate; Complete Time: 11:05 pm1 02/22 09:57 Order name: Procalcitonin; Complete Time: 11:46 pm1 02/22 09:57 Order name: COVID-19 pm1 02/22 10:45 Order name: Abdomen ; Complete Time: 11:05 EDMS 02/22 13:36 Order name: Comprehensive Metabolic Panel EDMS 02/22 13:36 Order name: Comprehensive Metabolic Panel EDMS 02/22 13:37 Order name: Urinalysis EDMS 02/22 13:37 Order name: CBC with Automated Diff EDMS 02/22 13:37 Order name: CBC with Automated Diff EDMS 02/22 13:37 Order name: Magnesium EDMS 02/22 13:37 Order name: Magnesium EDMS 02/22 07:57 Order name: EKG; Complete Time: 07:57 pm1 02/22 07:57 Order name: Cardiac monitoring; Complete Time: 08:11 pm1 02/22 07:57 Order name: EKG - Nurse/Tech; Complete Time: 09:07 pm1 02/22 07:57 Order name: IV Saline Lock; Complete Time: 08:11 pm1 02/22 07:57 Order name: Labs collected and sent; Complete Time: 08:11 pm1 02/22 07:57 Order name: O2 Per Protocol; Complete Time: 08:11 pm1 02/22 07:57 Order name: O2 Sat Monitoring; Complete Time: 08:11 pm02/22 09:13 Order name: Labs - recollect needed: T\\T\\S, needs to be 3/4 full; Complete Time: 10:40 iw 02/22 10:22 Order name: Oxygen; Complete Time: 10:27 [facility] 02/22 13:37 Order name: Regular EDMS Administered Medications: 08:03 Drug: Phenergan 12.5 mg Route: IVP; Site: right hand; jl 09:08 Follow up: Response: No adverse reaction 08:03 Drug: NS 0.9% 1000 ml Route: IV; Rate: 1000 ml; Site: right hand; 09:00 Follow up: Response: No adverse reaction; IV Status: Completed infusion; IV Intake: hb 1000ml 10:43 Follow up: Response: No adverse reaction; IV Status: Order to discontinue infusion; IV Intake: 500ml 08:06 Drug: Benadryl 25 mg Route: IVP; Site: right hand; 09:08 Follow up: Response: No adverse reaction 08:09 Drug: Dilaudid 1 mg Route: IVP; Site: right hand; jl7 09:00 Follow up: Response: No adverse reaction; Pain is unchanged, physician notified 7 09:02 Drug: Phenergan 12.5 mg Route: IVP; Site: right hand; jl7 09:40 Follow up: Response: No adverse reaction hb 09:05 Drug: Benadryl 25 mg Route: IVP; Site: right hand; jl7 09:30 Follow up: Response: No adverse reaction hb 09:07 Drug: Dilaudid 1 mg Route: IVP; Site: right hand; jl7 09:40 Follow up: Response: No adverse reaction hb 10:32 Drug: Phenergan 12.5 mg Route: IVP; Site: right hand; hb 10:33 Drug: Dilaudid 1 mg Route: IVP; Site: right hand; hb 10:33 Drug: Benadryl 25 mg Route: IVP; Site: right hand; hb 10:33 Drug: foLIC Acid 1 mg Route: IVPB; Site: right hand; hb Disposition: 20:55 Co-signature as Attending Physician, Spenser VERAS I agree with the assessment and anupam plan of care. Disposition: 02/23/20 10:01 Hospitalization ordered by Juan Gill for Inpatient Admission. Preliminary diagnosis are Sickle-cell/Hb-C disease with crisis, Chest pain, unspecified. - Bed requested for Telemetry/MedSurg (Inpatient). - Status is Inpatient Admission. iw - Condition is Stable. - Problem is new. - Symptoms have improved. Signatures: Dispatcher [employer] [facility] Spenser Luis MD MD cha Williams, Irene, RN RN iw Amos Villafuerte, DIRECTOR OF PARTNER MARKETING DIRECTOR OF PARTNER MARKETING pm1 Jessica Quiñones RN RN Nikolas Schaeffer RN RN jl7 Mary Delcid mt Corrections: (The following items were deleted from the chart) 10:45 09:58 Abdomen Pelvis W Con+CT.RAD.BRZ ordered. [facility] EDKS 14:05 10:01 Hospitalization Ordered by Juan Gill DO for Inpatient Admission. Preliminary mt diagnosis is Sickle-cell/Hb-C disease with crisis; Chest pain, unspecified. Bed requested for Telemetry/MedSurg (Inpatient). Status is Inpatient Admission. Condition is Stable. Problem is new. Symptoms have improved. pm1 14:55 14:05 02/23/2020 10:01 Hospitalization Ordered by Juan Gill DO for Inpatient iw Admission. Preliminary diagnosis is Sickle-cell/Hb-C disease with crisis; Chest pain, unspecified. Bed requested for Telemetry/MedSurg (Inpatient). Status is Inpatient Admission. Condition is Stable. Problem is new. Symptoms have improved. mt
--- NOTE | 2020-02-23 10:02 | ER ---
Nurse's Notes [facility] Name: Brennon Berg Age: 39 yrs Sex: Female : 1980 Arrival Date: 02/23/2020 Time: 07:[address] Private MD: Diagnosis: Sickle-cell/Hb-C disease with crisis;Chest pain, unspecified Presentation: 02/22 07:45 Chief complaint: EMS states: Sickle cell crisis x 2-3 days, reports pain 10/10, hb unrelieved by [place]. BP 190/120, HR 120s, SpO2 99% on RA, AOx4. Last crisis was one month ago, hospitalized for same s/s 2 months ago at [facility]. Coronavirus screen: Proceed with normal triage. Ebola Screen: No symptoms or risks identified at this time. Initial Sepsis Screen: Does the patient meet any 2 criteria? HR > 90 bpm. No. Patient's initial sepsis screen is negative. Does the patient have a suspected source of infection? No. Patient's initial sepsis screen is negative. Risk Assessment: Do you want to hurt yourself or someone else? Patient reports no desire to harm self or others. Onset of symptoms was February 21, 2020. 07:45 Method Of Arrival: EMS: [facility] hb 07:45 Acuity: TEMI 2 hb Triage Assessment: 07:49 General: Appears uncomfortable, Behavior is cooperative, restless, moaning. Pain: Pain hb currently is 10 out of 10 on a pain scale. EENT: No signs and/or symptoms were reported regarding the EENT system. Neuro: Level of Consciousness is awake, alert, obeys commands, Oriented to person, place, time, situation. Cardiovascular: Capillary refill < 3 seconds Patient's skin is warm and dry. Respiratory: Respiratory effort is even, unlabored, Respiratory pattern is regular, symmetrical. GI: No signs and/or symptoms were reported involving the gastrointestinal system. : No signs and/or symptoms were reported regarding the genitourinary system. Derm: Skin is pink, warm \T\ dry. Musculoskeletal: Reports pain all over, worse in joints. TUGBOAT PILOT: 10:41 LMP N/A - Hysterectomy jl7 Historical: - Allergies: 07:49 Fentanyl; hb 07:49 Morphine; hb 07:49 Reglan; hb 07:49 Stadol; hb 07:49 Toradol; hb 07:49 tramadol; hb 07:49 Trazodone; hb 07:49 Ultram; hb 07:49 Zofran; hb - Home Meds: 07:52 gabapentin 300 mg Oral cap 1 cap 3 times per day [Active]; Hydrea 500 mg Oral cap TID hb [Active]; hydrocodone-acetaminophen 10-325 mg Oral tab [Active]; hydroxyurea 500 mg Oral cap 1 cap every 3 days [Active]; Keppra 250 mg Oral tab 1 tabs 2 times per day [Active]; promethazine 25 mg Oral tab as needed [Active]; Xanax 2 mg Oral tab 2 times a day [Active]; - PMHx: 07:52 aplastic anemia; CVA; L sided weakness; Myocardial infarction; 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 - Social history:: Smoking status: Patient denies any tobacco usage or history of. Screenin:50 Abuse screen: Denies threats or abuse. Denies injuries from another. Nutritional hb screening: No deficits noted. Tuberculosis screening: No symptoms or risk factors identified. Fall Risk Total [place] Fall Scale indicates Low Risk Score (25-44 pts). Fall prevention measures have been instituted. Side Rails Up X 2 Frequent Obs/Assesments occuring As available Patient and Family Educated on Fall Prevention Program and strategies. Assessment: 07:50 General: see triage. hb 08:45 Reassessment: Pt c/o pain 1010, CUSTOMS DIRECTOR Amos notified. VSS. hb 09:05 Reassessment: SpO2 94% on RA, pt placed on 2LNC. hb 10:10 Reassessment: pt ambulated to bathroom with steady gate. jl7 10:35 Reassessment: Pt moaning loudly, agitated, refusing to go to CT without more pain hb medication. Dr. Luis notified at bedside, medication administered as ordered. Pt to CT via wheelchair with tech. Vital Signs: 07:45 BP 184 / 126; Pulse 93; Resp 18; Temp 97.8; Pulse Ox 97% on R/A; Weight 60.78 kg; hb Height 5 ft. 2 in. (157.48 cm); Pain 10/10; 08:08 BP 183 / 116; Pulse 106; Resp 21; Pulse Ox 96% ; Pain 10/10; jl7 09:00 BP 172 / 102; Pulse 90; Resp 18; Pulse Ox 94% on R/A; Pain 10/10; hb 10:00 BP 194 / 108; Pulse 95; Resp 18; Pulse Ox 98% 2 lpm ; Pain 10/10; hb 11:30 BP 219 / 128; Pulse 100; Resp 20; Pulse Ox 95% ; sv 12:00 BP 212 / 128; Pulse 99; Pulse Ox 95% ; sv 13:00 BP 202 / 122; Pulse 96; Resp 18; Pulse Ox 94% ; sv 14:00 BP 191 / 110; Pulse 91; Resp 18; Pulse Ox 95% ; sv 07:45 Body Mass Index 24.51 (60.78 kg, 157.48 cm) hb ED Course: 07:44 Patient arrived in ED. hb 07:47 Amos Villafuerte NP is PHCP. pm1 07:48 Spenser Luis MD is Attending Physician. anupam 07:48 Triage completed. hb 07:49 Arm band placed on. hb 07:50 Patient has correct armband on for positive identification. Placed in gown. Bed in low hb position. Call light in reach. Side rails up X2. 08:08 Nikolas Mcgarry, NIKKI is Primary Nurse. jl7 08:08 Initial lab(s) drawn, by ne, sent to lab. Inserted saline lock: 22 gauge in right hand, jl7 using aseptic technique. Blood collected. 09:14 XRAY Chest (1 view) In Process Unspecified. EDMS 10:00 Juan Gill DO is Hospitalizing Provider. pm1 10:43 COVID-19 Sent. hb 10:43 Procalcitonin Sent. hb 10:43 Lactate Sent. hb 10:46 Abdomen In Process Unspecified. EDMS Administered Medications: 08:03 Drug: Phenergan 12.5 mg Route: IVP; Site: right hand; jl7 09:08 Follow up: Response: No adverse reaction jl7 08:03 Drug: NS 0.9% 1000 ml Route: IV; Rate: 1000 ml; Site: right hand; jl7 09:00 Follow up: Response: No adverse reaction; IV Status: Completed infusion; IV Intake: hb 1000ml 10:43 Follow up: Response: No adverse reaction; IV Status: Order to discontinue infusion; IV jl7 Intake: 500ml 08:06 Drug: Benadryl 25 mg Route: IVP; Site: right hand; jl7 09:08 Follow up: Response: No adverse reaction jl7 08:09 Drug: Dilaudid 1 mg Route: IVP; Site: right hand; jl7 09:00 Follow up: Response: No adverse reaction; Pain is unchanged, physician notified jl7 09:02 Drug: Phenergan 12.5 mg Route: IVP; Site: right hand; jl7 09:40 Follow up: Response: No adverse reaction hb 09:05 Drug: Benadryl 25 mg Route: IVP; Site: right hand; jl7 09:30 Follow up: Response: No adverse reaction hb 09:07 Drug: Dilaudid 1 mg Route: IVP; Site: right hand; jl7 09:40 Follow up: Response: No adverse reaction hb 10:32 Drug: Phenergan 12.5 mg Route: IVP; Site: right hand; hb 10:33 Drug: Dilaudid 1 mg Route: IVP; Site: right hand; hb 10:33 Drug: Benadryl 25 mg Route: IVP; Site: right hand; hb 10:33 Drug: foLIC Acid 1 mg Route: IVPB; Site: right hand; hb Intake: 09:00 IV: 1000ml; Total: 1000ml. hb 10:43 IV: 500ml; Total: 1500ml. jl7 Outcome: 10:01 Decision to Hospitalize by Provider. pm1 14:31 Admitted to Tele accompanied by tech, room 208, with chart, Report called to Erica mayers RN 14:31 Condition: stable 14:31 Instructed on the need for admit. 14:55 Patient left the ED. iw Signatures: Dispatcher [employer] EDMS Brigitte Olson RN RN sv Anderson, Corey, MD MD cha Williams, Irene, RN RN iw Amos Villafuerte NP CUSTOMS DIRECTOR pm1 Jessica Quiñones RN RN hb Leal, Jahala, RN RN jl7 Corrections: (The following items were deleted from the chart) 07:49 07:45 BP 188 / 120; Pulse 93bpm; Resp 18bpm; Pulse Ox 97% RA; Temp 97.8F; 60.78 kg; hb Height 5 ft. 2 in.; BMI: 24.5; Pain 10; hb 07:49 07:45 Acuity: TEMI 3 hb hb 09:05 09:03 BP 172 / 102; Pulse 90bpm; Resp 16bpm; Pulse Ox 95% RA; Pain 04/29; hb hb 09: 08:45 Reassessment: Pt c/o pain 04/29, CUSTOMS DIRECTOR Amos notified. VSS. hb hb 09:07 09:00 BP 172 / 102; Pulse 90bpm; Resp 16bpm; Pulse Ox 94% RA; Pain 05/29; hb hb
[2020-02-23] MEDS ORDERED: FOLIC ACID 5 MG/ML VIAL ONE (10:50)
--- NOTE | 2020-02-23 11:02 | RAD REPORT ---
EXAM DESCRIPTION: CT - Abdomen Pelvis Wo Contrast - 02/23/2020 10:45 am CLINICAL HISTORY: Abdominal pain. elevated liver enzymes COMPARISON: Abdomen Pelvis Wo Contrast dated 11/25/2016 TECHNIQUE: CT imaging of the abdomen and pelvis was performed without contrast. Solid organ, bowel a nd vascular assessment is limited due to lack of IV and oral contrast. All CT scans are performed using dose optimization technique as appropriate and may include automated exposure control or mA/KV adjustment according to patient size. FINDINGS: The lower lung forte are clear. The liver appears enlarged in size with a nodular contour suspicious for cirrhosis. Cholecystectomy c lips are seen. Spleen appears absent. The pancreas and adrenal glands are grossly unremarkable for no ncontrast imaging.No urinary tract stone or obstructive uropathy seen. 27 mm benign cyst is present s uperior pole right kidney. No bowel obstruction, free air, free fluid or abscess. Umbilical hernia is present containing fat and a mild amount fluid. Moderate stool is seen throughout the colon. The appendix is normal. The osseous structures are within normal limits. IMPRESSION: Hepatomegaly with mild nodular liver contour suspicious for underlying cirrhosis. Cholec ystectomy clips. A limited non-contrast examination was performed as detailed.
[2020-02-23] MEDS ORDERED: PROMETHAZINE 25 MG TABLET PO PRN (13:28)
[2020-02-23] MEDS ORDERED: ACETAMINOPHEN 500 MG TAB PO PRN (13:28)
[2020-02-23] MEDS ORDERED: HYDROMORPHONE HCL 1 MG/ML INJ IV PRN (13:33)
--- NOTE | 2020-02-23 13:45 | P.HP ---
Certification for Inpatient Patient admitted to: Observation With expected LOS: <2 Midnights Patient will require the following post-hospital care: None Practitioner: I am a practitioner with admitting privileges, knowledge of patient current condition, hospital course, and medical plan of care. Services: Services provided to patient in accordance with Admission requirements found in Title 42 Section 412.3 of the Code of Federal Regulations Patient History Date of Service: 02/23/20 Primary Care Provider: Nighat Virgen Reason for admission: Sickle cell crisis History of Present Illness: 39-year-old female with a past medical history of sickle cell anemia, SD, CVA with residual left-sided weakness, history of seizures and aplastic anemia presents to the emergency room complaining of "pain all over" that has progressively worsened over the last 48 hr. Patient admits to drinking "a few beers" over the 20 of February weekend. Denies smoking or doing drugs. In the emergency room blood work shows elevation of white cell count 19, hemoglobin of 8.0 and hematocrit of 23.7, pro BNP slightly elevated at 204. CT of the abdomen pelvis shows an enlarged liver with nodular contour suspicious for cirrhosis. A cholecystectomy clips. Absent spleen. Unremarkable pancreas and adrenal glands. No stones or obstructive uropathy. A 27 mm benign cyst is present on superior pole right kidney. Chest x-ray shows mild CHF. On examination the patient is mildly distressed. She is not requiring O2 support and is complaining of pain. Abdomen is is slightly distended but is not tender to touch and has no acute abdomen. Patient appears slightly volume overloaded with some mild edema in the lower extremities. Patient we placed in observation and further evaluated. Allergies butorphanol tartrate [From Stadol] Allergy (Severe, Verified 04/12/19 15:26) seizures ketorolac tromethamine [From Toradol] Allergy (Severe, Verified 04/12/19 15:26) SEIZURES ondansetron HCl [From Zofran] Allergy (Severe, Verified 04/12/19 15:26) SEIZURES morphine Allergy (Intermediate, Verified 04/12/19 15:26) Hives fentanyl Allergy (Verified 04/12/19 15:26) Itching/Hives/Rash ondansetron [From Zofran (as hydrochloride)] Allergy (Verified 04/12/19 15:26) seizures tramadol Allergy (Verified 04/12/19 15:26) seizure trazodone Allergy (Verified 04/12/19 15:26) seizure metoclopramide [From Reglan] Adverse Reaction (Verified 04/12/19 15:26) SEIZURES Home medications list reviewed: No Home Medications: Amlodipine [Norvasc*] 2.5 mg PO BID 05/25/19 Hydrocodone Bit/Acetaminophen [[place] 10-325 Tablet] 1 tab PO Q4H PRN 05/25/19 Mirtazapine [Remeron*] 45 mg PO BEDTIME 05/25/19 Promethazine HCl 25 mg PO DAILY PRN 05/25/19 - Past Medical/Surgical History Diabetic: No -: Sickle cell disease -: History of CVA and Left side weakness -: CAD -: Hypertension -: Seizure disorder -: Insomnia -: History of endocarditis -: Anxiety disorder -: Chronic pain -: Aplastic Anemia -: SD -: Osteo to the Right leg -: Right axillary lumpectomy -: Splenectomy -: Cholecystectomy -: Partial hysterectomy -: 6 portacaths -: 6 piccs -: Psychosocial/ Personal History: The patient is . She has 2 children. - Family History Family History: Reviewed- Non-Contributory - Family History Father -: Heart disease, Hypertension Mother -: Hypertension - Social History Smoking Status: Never smoker Alcohol use: Yes CD- Drugs: No Caffeine use: Yes Place of Residence: Home Review of Systems General: As per HPI Eyes: As per HPI ENT: As per HPI Respiratory: Unremarkable Cardiovascular: Unremarkable Musculoskeletal: Other (Pain all over), As per HPI Integumentary: Unremarkable Neurological: Unremarkable Physical Examination - Vital Signs Temperature: 97.8 F Blood Pressure: 172/102 Pulse: 90 Respirations: 18 Pulse Ox (%): 94 (RA) - Physical Exam General: Alert, Oriented x3, Mild distress HEENT: Atraumatic, Normocephalic, PERRLA Neck: Supple, Other (The trachea midline.) Respiratory: Clear to auscultation bilaterally, Normal air movement Cardiovascular: No edema, Normal pulses, Regular rate/rhythm, Normal S1 S2 Capillary refill: <2 Seconds Gastrointestinal: Normal bowel sounds, Soft and benign, Distended (Mildly), Hepatomegaly Musculoskeletal: No swelling, Contractures (Left hand) Neurological: Normal speech, Normal tone, Abnormal gait (History of left-sided CVA), Abnormal strength (Left-sided weakness) - Studies Laboratory Data (last 24 hrs) 02/23/20 08:00: PT 14.2 H, INR 1.21 02/23/20 08:00: WBC 19.6 H, Hgb 8.0 L, Hct 23.7 L, Plt Count 173 02/23/20 08:00: Sodium 138, Potassium 4.0, BUN 7, Creatinine 0.66, Glucose 118 H, Magnesium 1.8, Total Bilirubin 4.1 H, AST 139 H, ALT 56, Alkaline Phosphatase 189 H Assessment and Plan - Plan Impression: Sickle cell crisis with history of aplastic anemia: CVA with residual left-sided weakness and contracture of left hand: History of myocardial infarct: History of seizures with no seizures in the recent past: Plan: Sickle cell crisis with history of aplastic anemia: Patient appears slightly volume overloaded with mild lower extremity edema. Will give IV Lasix daily and monitor volume status. Will control patient's pain with IV pain medication and transition to oral when possible. Monitor daily labs. 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 Patient has use of her left lower leg and is able to ambulate independently. Will resume home medications once verified. History of myocardial infarct: Denies chest pain and has no cardiac issues. B [employer] was slightly elevated on admission. Will diurese as above, place patient on telemetry. Monitor daily. History of seizures: No seizures in the recent past. Will resume home medications once verified. Will monitor for seizures. Discharge Plan: Home Plan to discharge in: 48 Hours - Advance Directives Does patient have a Living Will: No Does patient have a Durable POA for Healthcare: No - Code Status/Comfort Care Code Status Assessed: Yes
[2020-02-23] MEDS: HYDROCODONE/APAP 7.5/325 MG TAB PO PRN (15:17)
[2020-02-23 16:14] VITALS: BMI 27.4
[2020-02-23] MEDS: HEPARIN 5000 UNIT/ML 1 ML VIAL SQ SCH (21:00)
[2020-02-23] MEDS: HYDROMORPHONE HCL 1 MG/ML INJ IV PRN (21:02)
[2020-02-24] MEDS: HYDROMORPHONE HCL 1 MG/ML INJ IV PRN ×2 (01:00→05:07)
[2020-02-24 04:32] LABS: Hematocrit 21.4 % (36.0-45.0); MPV 9.9 fL (7.6-11.3); RBC Red Blood Cell Count 2.03 M/uL (3.86-4.86)
[2020-02-24 05:09] LABS: ALT/SGPT 52 U/L (12-78); Albumin 3.1 g/dL (3.4-5.0); Alkaline Phosphatase 159 U/L (45-117); BUN Blood Urea Nitrogen 9 mg/dL (7-18); Bicarbonate 27 mmol/L (21-32); Bilirubin Total 3.5 mg/dL (0.2-1.0); Glucose Level 100 mg/dL (74-106); Sodium Level 136 mmol/L (136-145)
[2020-02-24 05:19] LABS: Anisocytosis 3+; Blood Morphology Comment NOTED (NOT SEEN); Macrocytosis 1+; Platelet Estimate ADEQ; Target Cells 2+
[2020-02-24 05:27] LABS: AST/SGOT 150 U/L (15-37); Magnesium 1.8 mg/dL (1.8-2.4); Potassium 4.6 mmol/L (3.5-5.1)
--- NOTE | 2020-02-24 06:40 | EKG ---
Test Date: 2020-02-23 Test Time: 08:52:55 Glassblower: ZACHARIAH MEASUREMENT RESULTS: Intervals: Rate: 89 [place]: 176 QRSD: 82 QT: 402 QTc: 489 [place]: P: 59 [place]: 176 QRS: 29 T: 60 INTERPRETIVE STATEMENTS: Sinus rhythm with premature supraventricular complexes Moderate voltage criteria for LVH, may be normal variant Prolonged QT Abnormal ECG Compared to ECG 12/22/2019 01:15:20 Atrial premature complex(es) now present Prolonged QT interval now present Sinus tachycardia no longer present Electronically Signed On 02-24-20 06:39:48 CDT by Ronan Ojeda
[2020-02-24 07:43] LABS: RBC Red Blood Cell Count 2.04 M/uL (3.86-4.86)
--- NOTE | 2020-02-24 08:55 | P.PN ---
Subjective Date of Service: 02/24/20 Primary Care Provider: Nighat Virgen Chief Complaint: Sickle cell crisis Subjective: No new changes Review of Systems General: Malaise Eyes: Unremarkable ENT: Unremarkable Respiratory: Shortness of Breath (Patient reports that she is short of breath but no more short of breath than she usually is during her sickle cell crisis.) Cardiovascular: As per HPI Gastrointestinal: As per HPI Genitourinary: As per HPI Musculoskeletal: As per HPI Integumentary: Unremarkable Neurological: Unremarkable Lymphatics: Unremarkable Physical Examination - Vital Signs Temperature: 97.7 F Blood Pressure: 169/90 Pulse: 90 Respirations: 16 Pulse Ox (%): 99 - Physical Exam General: Alert, Oriented x3, Mild distress HEENT: Atraumatic, Normocephalic Neck: Supple Respiratory: Clear to auscultation bilaterally, Normal air movement Cardiovascular: No edema, Regular rate/rhythm, Normal S1 S2 Capillary refill: <2 Seconds Gastrointestinal: Normal bowel sounds, Soft and benign Musculoskeletal: No contractures, No erythema, No tenderness Integumentary: No breakdown, No significant lesion, No tenderness/swelling Neurological: Normal speech, Normal strength at 5/5 x4 extr, Normal tone - Studies Laboratory Data (last 24 hrs) 02/23/20 08:00: WBC 19.6 H, Hgb 8.0 L, Hct 23.7 L, Plt Count 173 Assessment & Plan Discharge Plan: Home Plan to discharge in: 24 Hours - Code Status/Comfort Care Code Status Assessed: Yes (Patient is full code) Physician Review Additional Text: Impression: Sickle cell crisis with history of aplastic anemia: CVA with residual left-sided weakness and contracture of left hand: History of myocardial infarct: History of seizures with no seizures in the recent past: Plan: Sickle cell crisis with history of aplastic anemia: Patient is still and a significant amount of pain. Patient writhing around in stretcher during conversation. Patient reports that the pain medication both IV and p.o. is not controlling her pain at this time. Patient is hypertensive and mildly tachycardic which she states is typical of her pain during sickle-cell crisis. Patient also noted to have an elevated white blood cell count of 25.7. Have ordered blood in urine cultures, CT scan was done while patient was in the emergency department. Patient is afebrile, pro calcitonin was negative but has been repeated today. Patient reports that her hemoglobin baseline is approximately 7.4. Pain medications have been adjusted, patient is aware that she will need to be weaned off of the pain medication and states that she will start the process on her own as soon as she can. Will transition patient to oral medications as soon as is appropriate. Patient also wishes to speak with somebody in regards to having a port placed as she had to have her previous 1 removed after it became infected. Patient was due to have another 1 placed with her physical education professor in [place] but has not been able to get up to see them due to COVID. Anticipate clinical improvement and discharge in the next 24-48 hr. 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 Patient has use of her left lower leg and is able to ambulate independently. Will resume home medications once verified. History of myocardial infarct: Denies chest pain and has no cardiac issues. Patient on telemetry, will continue to monitor. History of seizures: No seizures in the recent past. Will resume home medications once verified. Will monitor for seizures Critical Care: No Time Spent Managing Pts Care (In Minutes): 55
[2020-02-24] MEDS: HEPARIN 5000 UNIT/ML 1 ML VIAL SQ SCH ×2 (09:00→20:44)
[2020-02-24] MEDS ORDERED: METOPROLOL XL 25 MG TAB PO SCH (09:00)
[2020-02-24] MEDS: HYDROMORPHONE HCL 2 MG/ML inj IV PRN ×4 (09:15→21:34)
[2020-02-24] MEDS: METOPROLOL XL 25 MG TAB PO SCH ×2 (09:16→20:44)
[2020-02-24] MEDS: AMLODIPINE 2.5 MG TAB PO SCH ×2 (09:16→20:43)
[2020-02-24] MEDS: PROMETHAZINE INJ 25 MG/ML AMP IV PRN ×2 (10:11→20:49)
[2020-02-24] MEDS: CEFTRIAXONE/SWI 1gm 1 GM/10 ML SYR IV SCH (11:18)
[2020-02-24] MEDS: MIRTAZAPINE 15 MG TAB PO SCH (20:42)
[2020-02-25] MEDS: HYDROMORPHONE HCL 2 MG/ML inj IV PRN ×4 (02:43→19:22)
[2020-02-25] MEDS: PROMETHAZINE INJ 25 MG/ML AMP IV PRN ×2 (03:26→19:22)
[2020-02-25 06:23] LABS: Albumin 2.9 g/dL (3.4-5.0); Bilirubin Total 4.6 mg/dL (0.2-1.0); Protein, Total 9.8 g/dL (6.4-8.2)
[2020-02-25 06:27] LABS: Potassium 5.8 mmol/L (3.5-5.1)
[2020-02-25 06:31] LABS: Hematocrit 18.7 % (36.0-45.0); MPV 9.4 fL (7.6-11.3); RBC Red Blood Cell Count 1.85 M/uL (3.86-4.86)
[2020-02-25] MEDS ORDERED: FUROSEMIDE 20 MG/ 2ML VIAL IV ONE (07:12)
[2020-02-25] MEDS ORDERED: NA CHLORIDE 0.9% 250 ML IV SCH (08:00)
--- NOTE | 2020-02-25 08:05 | P.PN ---
Subjective Date of Service: 02/25/20 Primary Care Provider: Nighat Virgen Chief Complaint: Sickle cell crisis Subjective: No new changes Review of Systems General: Unremarkable Eyes: Unremarkable ENT: Unremarkable Respiratory: Unremarkable Cardiovascular: Unremarkable Gastrointestinal: Unremarkable Genitourinary: Unremarkable Musculoskeletal: As per HPI (Pain all over) Integumentary: As per HPI Neurological: Unremarkable Lymphatics: Unremarkable Physical Examination - Vital Signs Temperature: 97.2 F Blood Pressure: 132/71 Pulse: 83 Respirations: 17 Pulse Ox (%): 94 - Physical Exam General: Alert, In no apparent distress, Oriented x3 HEENT: Atraumatic, Normocephalic Neck: Supple Respiratory: Clear to auscultation bilaterally, Normal air movement Cardiovascular: No edema, Normal pulses, Normal S1 S2 Capillary refill: <2 Seconds Gastrointestinal: Normal bowel sounds Musculoskeletal: No clubbing, No contractures, No erythema, No tenderness Integumentary: No significant lesion, No tenderness/swelling, No erythema Neurological: Normal gait, Normal speech, Normal strength at 5/5 x4 extr, Normal tone, Normal affect - Studies Microbiology Data (last 24 hrs): 02/24/20 08:41 Blood - Blood Anaerobic Blood Culture - Final 02/23/20 10:30 Nasopharnyx Coronavirus COVID-19 PCR - Final Assessment & Plan Discharge Plan: Home Plan to discharge in: 24 Hours - Code Status/Comfort Care Code Status Assessed: Yes (Pt full code) Physician Review Additional Text: Impression: Sickle cell crisis with history of aplastic anemia: Urine Culture with 4+ gram negative rods, leukocytosis CVA with residual left-sided weakness and contracture of left hand: History of myocardial infarct: History of seizures with no seizures in the recent past: Plan: Sickle cell crisis with history of aplastic anemia: Patient pain has improved mildly. Hemoglobin has dropped to 6.5. Patient's baseline hemoglobin is around 7.5. Will order blood transfusion at this time as patient has many antibodies and this will likely take a long time to complete. Will continue with IV pain medication and oxygen therapy at this time, patient had midline inserted yesterday. Pt potassium was 5.8 on morning labs but there was hemolysis, will repeat after blood transfusion today. Anticipate clinical improvement in the next 24-48 hours at which time the patient can be discharged. DVT prophylaxis with lovenox 40mg SQ once daily. Urine Culture with 4+ gram negative rods, leukocytosis: Patient was started on rocephin yesterday, will continue with this until C&S is resulted. Pt WBC decreased from 25.7 to 22. Will continue to monitor, blood culture pending. Pt denies any focal areas of pain, denies chest pain/SOB. 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 Patient has use of her left lower leg and is able to ambulate independently. History of myocardial infarct: Denies chest pain and has no cardiac issues. Patient on telemetry, will continue to monitor. History of seizures: No seizures in the recent past. Will resume home medications once verified. Will monitor for seizures Critical Care: No Time Spent Managing Pts Care (In Minutes): 55
[2020-02-25 08:48] LABS: Anisocytosis 3+; Blood Morphology Comment NOTED (NOT SEEN); Platelet Estimate ADEQ; Platelets, Giant FEW PRESENT
[2020-02-25 08:49] LABS: Macrocytosis 1+; Polychromasia 2+; Target Cells 2+
[2020-02-25] MEDS: HEPARIN 5000 UNIT/ML 1 ML VIAL SQ SCH ×2 (09:00→20:11)
[2020-02-25] MEDS: AMLODIPINE 2.5 MG TAB PO SCH ×2 (09:03→20:11)
[2020-02-25] MEDS: METOPROLOL XL 25 MG TAB PO SCH ×2 (09:03→20:11)
[2020-02-25] MEDS: CEFTRIAXONE/SWI 1gm 1 GM/10 ML SYR IV SCH (09:03)
[2020-02-25 18:09] LABS: Potassium 6.4 mmol/L (3.5-5.1)
[2020-02-25] MEDS ORDERED: SOD POLYSTYREN SUL 15 GM/60 ML UCUP PO ONE (19:16)
[2020-02-25] MEDS: MIRTAZAPINE 15 MG TAB PO SCH (20:07)
[2020-02-25] MEDS ORDERED: NA CHLORIDE 0.9% 250 ML ONE (22:09)
[2020-02-25] MEDS: DIPHENHYDRAMINE 50 MG/ML VIAL IV PRN (22:40)
[2020-02-26] MEDS: HYDROMORPHONE HCL 2 MG/ML inj IV PRN ×6 (00:42→20:39)
[2020-02-26 04:55] LABS: MPV 9.3 fL (7.6-11.3); RBC Red Blood Cell Count 1.77 M/uL (3.86-4.86)
[2020-02-26 04:57] LABS: Hematocrit 18.1 % (36.0-45.0)
[2020-02-26 05:08] LABS: Albumin 2.9 g/dL (3.4-5.0); Bilirubin Total 3.9 mg/dL (0.2-1.0); Protein, Total 10.1 g/dL (6.4-8.2)
[2020-02-26 05:11] LABS: Potassium 5.5 mmol/L (3.5-5.1)
[2020-02-26 05:30] LABS: Blood Morphology Comment NOTED (NOT SEEN); Platelet Estimate ADEQ; Polychromasia 1+; Target Cells 3+
[2020-02-26] MEDS: PROMETHAZINE INJ 25 MG/ML AMP IV PRN ×3 (05:44→20:41)
[2020-02-26] MEDS: CEFTRIAXONE/SWI 1gm 1 GM/10 ML SYR IV SCH (08:31)
[2020-02-26] MEDS: SOD POLYSTYREN SUL 15 GM/60 ML UCUP PO ONE ×2 (08:32→09:38)
[2020-02-26] MEDS: AMLODIPINE 2.5 MG TAB PO SCH ×2 (08:32→20:33)
[2020-02-26] MEDS: METOPROLOL XL 25 MG TAB PO SCH ×2 (08:33→20:33)
[2020-02-26] MEDS: HEPARIN 5000 UNIT/ML 1 ML VIAL SQ SCH ×2 (08:33→20:34)
[2020-02-26] MEDS: DIPHENHYDRAMINE 50 MG/ML VIAL IV PRN ×2 (09:38→14:17)
--- NOTE | 2020-02-26 09:47 | P.PN ---
Subjective Date of Service: 02/26/20 Primary Care Provider: Nighat Virgen Chief Complaint: Sickle cell crisis Subjective: No new changes Review of Systems General: Malaise, Other (Generalized pain) Eyes: Unremarkable ENT: Unremarkable Respiratory: Unremarkable Cardiovascular: Unremarkable Gastrointestinal: Unremarkable Genitourinary: Unremarkable Musculoskeletal: Unremarkable Integumentary: Unremarkable Neurological: Unremarkable Lymphatics: Unremarkable Physical Examination - Vital Signs Temperature: 98.7 F Blood Pressure: 136/77 Pulse: 98 Respirations: 16 Pulse Ox (%): 94 - Physical Exam General: Alert, In no apparent distress, Oriented x3 HEENT: Atraumatic, Normocephalic Neck: Supple Respiratory: Clear to auscultation bilaterally, Normal air movement Cardiovascular: No edema, Regular rate/rhythm, Normal S1 S2 Capillary refill: <2 Seconds Gastrointestinal: Normal bowel sounds, Soft and benign Musculoskeletal: No contractures, No erythema Integumentary: No significant lesion, No tenderness/swelling Neurological: Normal speech - Studies Microbiology Data (last 24 hrs): 02/24/20 08:41 Blood - Blood Anaerobic Blood Culture - Final Assessment & Plan Discharge Plan: Home Plan to discharge in: 24 Hours - Code Status/Comfort Care Code Status Assessed: Yes (Patient is full code) Physician Review Additional Text: Impression: Sickle cell crisis with history of aplastic anemia: Hyperkalemia Urine Culture positive for Klebsiella pneumoniae, leukocytosis CVA with residual left-sided weakness and contracture of left hand: History of myocardial infarct: History of seizures with no seizures in the recent past: Plan: Sickle cell crisis with history of aplastic anemia: Patient states that her pain has worsened over the course of the last 24 hr. Hemoglobin has dropped to 6.2. Patient's baseline hemoglobin is around 7.5. Will repeat H&H with morning labs. Patient also with hyperkalemia did receive Kayexalate both last night and this morning will continue to monitor patient's potassium and electrolytes closely. I do believe this is related to her sickle cell crisis. Hyperkalemia: Continue with Kayexalate as needed, will continue to monitor patient's electrolytes closely. Urine Culture positive for Klebsiella pneumoniae, leukocytosis: Culture and sensitivity have returned, patient is almost ramirez-sensitive. Will start patient on oral Augmentin. 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 Patient has use of her left lower leg and is able to ambulate independently. History of myocardial infarct: Denies chest pain and has no cardiac issues. Patient on telemetry, will continue to monitor. History of seizures: No seizures in the recent past. Will resume home medications once verified. Will monitor for seizures Critical Care: No Time Spent Managing Pts Care (In Minutes): 55
[2020-02-26] MEDS: HYDROCODONE/APAP 7.5/325 MG TAB PO PRN (14:10)
[2020-02-26] MEDS: MIRTAZAPINE 15 MG TAB PO SCH (20:32)
[2020-02-27] MEDS: HYDROMORPHONE HCL 2 MG/ML inj IV PRN ×5 (04:20→20:56)
[2020-02-27] MEDS: DIPHENHYDRAMINE 50 MG/ML VIAL IV PRN ×2 (04:23→16:18)
[2020-02-27 06:36] LABS: Hematocrit 15.7 % (36.0-45.0); MPV 9.5 fL (7.6-11.3)
[2020-02-27] MEDS ORDERED: FUROSEMIDE 20 MG/ 2ML VIAL IV ONE (06:59)
[2020-02-27] MEDS ORDERED: NA CHLORIDE 0.9% 250 ML IV SCH (07:00)
[2020-02-27 07:07] LABS: Potassium 5.8 mmol/L (3.5-5.1)
--- NOTE | 2020-02-27 08:34 | P.PN ---
Subjective Date of Service: 02/27/20 Primary Care Provider: Nighat Virgen Chief Complaint: Sickle cell crisis Subjective: No new changes Patient still with significant pain. <Raj Bravo - Last Filed: 02/27/20 08:30> Date of Service: 02/27/20 <Juan Gill - Last Filed: 02/27/20 18:45> Review of Systems General: Malaise Eyes: Unremarkable ENT: Unremarkable Respiratory: Unremarkable Cardiovascular: Unremarkable Gastrointestinal: Unremarkable Genitourinary: Unremarkable Musculoskeletal: Other (Generalized pain) Integumentary: Unremarkable Neurological: Unremarkable Lymphatics: Unremarkable <Raj Bravo - Last Filed: 02/27/20 08:30> Physical Examination - Vital Signs Temperature: 98.8 F Blood Pressure: 119/62 Pulse: 96 Respirations: 18 Pulse Ox (%): 77 - Physical Exam General: Alert, In no apparent distress, Oriented x3 HEENT: Atraumatic, Normocephalic Neck: Supple Respiratory: Clear to auscultation bilaterally, Normal air movement Cardiovascular: No edema, Normal S1 S2 Capillary refill: <2 Seconds Gastrointestinal: Normal bowel sounds, Soft and benign Musculoskeletal: No swelling, No contractures, No erythema Integumentary: Other (Mucous membranes dry) Neurological: Normal speech, Normal tone - Studies Microbiology Data (last 24 hrs): 02/24/20 11:25 Clean Catch Urine [place] Count - Final >100,000 CFU/ML. 02/24/20 11:25 Clean Catch Urine - Final Klebsiella Pneumoniae Klebsiella Pneumoniae#2 <ShellyRaj - Last Filed: 02/27/20 08:30> Assessment & Plan Discharge Plan: Home Plan to discharge in: 48 Hours - Code Status/Comfort Care Code Status Assessed: Yes (Patient is full code) Physician Review Additional Text: Impression: Sickle cell crisis with history of aplastic anemia: Hyperkalemia Urine Culture positive for Klebsiella pneumoniae, leukocytosis CVA with residual left-sided weakness and contracture of left hand: History of myocardial infarct: History of seizures with no seizures in the recent past: Plan: Sickle cell crisis with history of aplastic anemia: Patient continues with moderate to severe pain despite intensive therapy. Have consulted Hematology to optimize therapy. Patient hemoglobin decreased to 5.8 today, patient will receive 2 units packed red blood cells. Will repeat H&H and retic count 2 hr after transfusion. Patient is refusing subcutaneous heparin for DVT prophylaxis. Will continue to monitor patient closely. Patient's mucous membranes very dry today will place patient on maintenance fluids. Hyperkalemia: Continue with Kayexalate as needed, will continue to monitor patient's electrolytes closely. Urine Culture positive for Klebsiella pneumoniae, leukocytosis: Patient's white blood cell count is now elevated back to 25. Blood cultures negative, patient with no new complaints. Will continue Rocephin at this time. Will discuss further with hematology and pharmacy. 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 Patient has use of her left lower leg and is able to ambulate independently. History of myocardial infarct: Denies chest pain and has no cardiac issues. Patient on telemetry, will continue to monitor. History of seizures: No seizures in the recent past. Will resume home medications once verified. Will monitor for seizures Critical Care: No Time Spent Managing Pts Care (In Minutes): 55 <Raj Bravo - Last Filed: 02/27/20 08:30> Physician Review Additional Text: Case discussed in detail with nurse practitioner. Agree with assessment, evaluation and plan of care. Patient to get 1 unit of blood. Maintain hemoglobin above 6.0. Will monitor closely. Patient to continue with IV antibiotic therapy. Elevated white count likely related to multiple factors including sickle cell crisis, an UTI. Will monitor closely. Will provide medication for pain. Continue IV fluids. <Juan Gill - Last Filed: 02/27/20 18:45>
[2020-02-27] MEDS: METOPROLOL XL 25 MG TAB PO SCH ×2 (08:56→21:01)
[2020-02-27] MEDS: AMLODIPINE 2.5 MG TAB PO SCH ×2 (08:58→21:00)
[2020-02-27] MEDS: CEFTRIAXONE/SWI 1gm 1 GM/10 ML SYR IV SCH (08:58)
[2020-02-27] MEDS: NA CHLORIDE 0.9% 1,000 ML IV SCH ×2 (08:58→22:04)
[2020-02-27] MEDS: HEPARIN 5000 UNIT/ML 1 ML VIAL SQ SCH ×2 (08:58→21:00)
[2020-02-27 11:04] LABS: Anisocytosis 3+; Blood Morphology Comment NOTED (NOT SEEN); Macrocytosis 1+; Platelet Estimate ADEQ
[2020-02-27 11:05] LABS: Polychromasia 1+; Target Cells 1+
[2020-02-27] MEDS: PROMETHAZINE INJ 25 MG/ML AMP IV PRN ×2 (12:50→20:57)
[2020-02-27] MEDS ORDERED: HYDROCODONE/APAP 10/325 TAB PO PRN (17:07)
[2020-02-27] MEDS: MIRTAZAPINE 15 MG TAB PO SCH (21:01)
[2020-02-28] MEDS: HYDROMORPHONE HCL 2 MG/ML inj IV PRN ×7 (00:38→23:45)
[2020-02-28] MEDS: DIPHENHYDRAMINE 50 MG/ML VIAL IV PRN ×4 (00:38→23:45)
[2020-02-28] MEDS: PROMETHAZINE INJ 25 MG/ML AMP IV PRN ×3 (04:20→19:53)
[2020-02-28] MEDS: NA CHLORIDE 0.9% 1,000 ML IV SCH ×3 (04:20→16:38)
[2020-02-28 06:28] LABS: Hematocrit 15.5 % (36.0-45.0); MPV 9.4 fL (7.6-11.3); RBC Red Blood Cell Count 1.44 M/uL (3.86-4.86)
[2020-02-28 06:45] LABS: Magnesium 2.2 mg/dL (1.8-2.4)
[2020-02-28 06:46] LABS: Potassium 5.9 mmol/L (3.5-5.1)
[2020-02-28] MEDS ORDERED: ALBUTEROL 2.5 MG/3 ML NEB SOL NEB ONE (07:19)
[2020-02-28] MEDS ORDERED: D50W 25 GM/50 ML SYRINGE/VIAL IV ONE (07:19)
[2020-02-28] MEDS ORDERED: D50W 25 GM/50 ML SYRINGE/VIAL IV PRN (07:19)
[2020-02-28] MEDS ORDERED: GLUCAGON 1 MG/VIAL IM PRN (07:19)
[2020-02-28] MEDS ORDERED: CALCIUM GLUC 10% INJ 4.65 MEQ in NA CHLORIDE 0.9% 100 ML IV ONE (07:19)
[2020-02-28] MEDS ORDERED: SOD POLYSTYREN SUL 15 GM/60 ML UCUP PO ONE (07:19)
[2020-02-28] MEDS ORDERED: INSULIN -REGULAR HUMAN 50 UNIT/0.5 ML ML IV ONE (07:20)
[2020-02-28] MEDS ORDERED: NA CHLORIDE 0.9% 1,000 ML IV SCH (08:23)
[2020-02-28] MEDS: METOPROLOL XL 25 MG TAB PO SCH ×2 (08:34→21:22)
[2020-02-28] MEDS: AMLODIPINE 2.5 MG TAB PO SCH ×2 (08:34→21:21)
[2020-02-28] MEDS: HEPARIN 5000 UNIT/ML 1 ML VIAL SQ SCH ×2 (08:52→21:00)
[2020-02-28] MEDS: CEFTRIAXONE/SWI 1gm 1 GM/10 ML SYR IV SCH (08:52)
[2020-02-28 10:02] LABS: Anisocytosis 3+; Blood Morphology Comment NOTED (NOT SEEN); Macrocytosis 1+; Platelet Estimate ADEQ; Polychromasia 2+; Target Cells 1+
--- NOTE | 2020-02-28 11:52 | P.PN ---
Subjective Date of Service: 02/28/20 Primary Care Provider: Nighat Virgen Chief Complaint: Sickle cell crisis Subjective: No new changes, No C/O voiced Patient still with significant pain. Review of Systems 10-point ROS is otherwise unremarkable Musculoskeletal: Other (Patient with significant generalized pain.) Physical Examination - Vital Signs Temperature: 97.5 F Blood Pressure: 134/78 Pulse: 80 Respirations: 18 Pulse Ox (%): 98 - Physical Exam General: Alert, In no apparent distress, Oriented x3 HEENT: Atraumatic, Normocephalic Neck: Supple Respiratory: Clear to auscultation bilaterally, Normal air movement Cardiovascular: Normal pulses, Regular rate/rhythm, Normal S1 S2 Capillary refill: <2 Seconds Gastrointestinal: Normal bowel sounds, Soft and benign Musculoskeletal: No contractures, No erythema, No tenderness Integumentary: Other (Mucous membranes dry) Neurological: Normal speech, Normal strength at 5/5 x4 extr, Normal tone, Sensation intact Assessment & Plan Discharge Plan: Home Plan to discharge in: 24 Hours - Code Status/Comfort Care Code Status Assessed: Yes Physician Review Additional Text: Impression: Sickle cell crisis with history of aplastic anemia: Hyperkalemia Urine Culture positive for Klebsiella pneumoniae, leukocytosis CVA with residual left-sided weakness and contracture of left hand: History of myocardial infarct: History of seizures with no seizures in the recent past: Plan: Sickle cell crisis with history of aplastic anemia: Patient continues with moderate to severe pain despite intensive therapy. Have consulted Hematology to optimize therapy. Continue to monitor H&H and transfuse to hemoglobin of between 5 and 6. Patient is refusing subcutaneous heparin for DVT prophylaxis. Will continue to monitor patient closely. I have increased patient's maintenance fluids. Anticipate clinical improvement next 24-48 hr. Hyperkalemia: Patient's potassium is still running high, Ativan and insulin, d extrose, albuterol, Kayexalate, calcium this morning, will repeat this afternoon. Urine Culture positive for Klebsiella pneumoniae, leukocytosis: Patient's white blood cell count is now elevated back to 25. Blood cultures negative, patient with no new complaints. Will continue Rocephin at this time. Will discuss further with hematology and pharmacy. 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 Patient has use of her left lower leg and is able to ambulate independently. History of myocardial infarct: Denies chest pain and has no cardiac issues. Patient on telemetry, will continue to monitor. History of seizures: No seizures in the recent past. Will resume home medications once verified. Will monitor for seizures Critical Care: No Time Spent Managing Pts Care (In Minutes): 55 Critical Care: No Time Spent Managing Pts Care (In Minutes): 55
[2020-02-28] MEDS: THIAMINE HCL 100 MG TABLET PO SCH (12:04)
[2020-02-28] MEDS: FOLIC ACID 1 MG TABLET PO SCH (12:05)
[2020-02-28] MEDS ORDERED: NA CHLORIDE 0.9% 250 ML ONE (13:34)
[2020-02-28] MEDS ORDERED: FUROSEMIDE 20 MG/ 2ML VIAL IV ONE (16:33)
[2020-02-28 18:17] LABS: Hematocrit 19.7 % (36.0-45.0)
[2020-02-28 19:19] LABS: Potassium 4.7 mmol/L (3.5-5.1)
[2020-02-28] MEDS: MIRTAZAPINE 15 MG TAB PO SCH (21:21)
[2020-02-29] MEDS: NA CHLORIDE 0.9% 1,000 ML IV SCH ×2 (00:35→07:05)
[2020-02-29] MEDS: HYDROMORPHONE HCL 2 MG/ML inj IV PRN ×6 (03:36→22:03)
[2020-02-29] MEDS: PROMETHAZINE INJ 25 MG/ML AMP IV PRN ×3 (03:36→18:18)
[2020-02-29 05:10] LABS: BUN Blood Urea Nitrogen 15 mg/dL (7-18); Bicarbonate 29 mmol/L (21-32); Glucose Level 119 mg/dL (74-106); Sodium Level 141 mmol/L (136-145)
[2020-02-29 05:11] LABS: Magnesium 1.9 mg/dL (1.8-2.4); Potassium 4.6 mmol/L (3.5-5.1)
[2020-02-29 05:53] LABS: Hematocrit 18.8 % (36.0-45.0); MPV 9.5 fL (7.6-11.3); RBC Red Blood Cell Count 1.78 M/uL (3.86-4.86)
[2020-02-29] MEDS: DIPHENHYDRAMINE 50 MG/ML VIAL IV PRN ×3 (07:05→22:13)
[2020-02-29] MEDS: HEPARIN 5000 UNIT/ML 1 ML VIAL SQ SCH ×2 (09:00→20:37)
[2020-02-29 09:19] LABS: Blood Morphology Comment NOTED (NOT SEEN); Platelet Estimate ADEQ; Platelets, Giant PRESENT
[2020-02-29 09:20] LABS: Anisocytosis 3+; Macrocytosis 1+
[2020-02-29 09:25] LABS: Polychromasia 2+; Target Cells 1+
[2020-02-29] MEDS: FOLIC ACID 1 MG TABLET PO SCH (09:54)
[2020-02-29] MEDS: AMLODIPINE 2.5 MG TAB PO SCH ×2 (09:54→20:40)
[2020-02-29] MEDS: THIAMINE HCL 100 MG TABLET PO SCH (09:54)
[2020-02-29] MEDS: CEFTRIAXONE/SWI 1gm 1 GM/10 ML SYR IV SCH (09:55)
[2020-02-29] MEDS: METOPROLOL XL 25 MG TAB PO SCH ×2 (09:55→20:40)
[2020-02-29] MEDS: NACHLORIDE 0.45% 1,000 ML IV SCH ×2 (09:55→17:53)
--- NOTE | 2020-02-29 10:45 | P.PN ---
Subjective Date of Service: 02/29/20 Primary Care Provider: Nighat Virgen Chief Complaint: Sickle cell crisis Patient still with significant pain. Review of Systems 10-point ROS is otherwise unremarkable Musculoskeletal: Other (Patient with generalized pain) Physical Examination - Vital Signs Temperature: 98.3 F Blood Pressure: 126/60 Pulse: 87 Respirations: 18 Pulse Ox (%): 90 - Physical Exam General: Alert, In no apparent distress, Oriented x3 HEENT: Atraumatic, Normocephalic Neck: Supple Respiratory: Clear to auscultation bilaterally, Normal air movement Cardiovascular: Regular rate/rhythm, Normal S1 S2 Gastrointestinal: Normal bowel sounds, No tenderness Musculoskeletal: No tenderness Integumentary: No rashes Neurological: Normal speech, Normal tone, Normal affect - Studies Microbiology Data (last 24 hrs): 02/24/20 08:41 Blood - Blood Aerobic Blood Culture - Final No growth in 5 days. 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 Have consulted Hematology to optimize therapy. Continue to monitor H&H and transfuse to hemoglobin of between 5 and 6. Patient is refusing subcutaneous heparin for DVT prophylaxis. Will continue to monitor patient closely. Continue with IV fluids, patient appears to be doing a lot better today. Possible discharge tomorrow or the next day. Hyperkalemia: Potassium has improved, will continue to monitor daily. Urine Culture positive for Klebsiella pneumoniae, leukocytosis: White blood cell count improving, will continue Rocephin this time. Discharge patient to be switched to Augmentin. 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 Patient has use of her left lower leg and is able to ambulate independently. History of myocardial infarct: Denies chest pain and has no cardiac issues. Patient on telemetry, will continue to monitor. History of seizures: No seizures in the recent past. Will resume home medications once verified. Will monitor for seizures Critical Care: No
[2020-02-29] MEDS: MIRTAZAPINE 15 MG TAB PO SCH (20:40)
[2020-03-01] MEDS: NACHLORIDE 0.45% 1,000 ML IV SCH ×5 (01:24→21:50)
[2020-03-01] MEDS: HYDROMORPHONE HCL 2 MG/ML inj IV PRN ×2 (01:50→06:06)
[2020-03-01] MEDS: PROMETHAZINE INJ 25 MG/ML AMP IV PRN ×3 (01:54→17:57)
[2020-03-01 05:52] LABS: MPV 9.6 fL (7.6-11.3); RBC Red Blood Cell Count 1.82 M/uL (3.86-4.86)
[2020-03-01 05:58] LABS: BUN Blood Urea Nitrogen 8 mg/dL (7-18); Bicarbonate 30 mmol/L (21-32); Glucose Level 103 mg/dL (74-106); Sodium Level 137 mmol/L (136-145)
[2020-03-01 06:06] LABS: Magnesium 1.8 mg/dL (1.8-2.4); Potassium 4.2 mmol/L (3.5-5.1)
[2020-03-01] MEDS: DIPHENHYDRAMINE 50 MG/ML VIAL IV PRN ×3 (06:07→21:51)
[2020-03-01] MEDS ORDERED: MAGNESIUM SULFATE 1 gm IVPB 1 GM/100 ML BAG IV ONE (07:00)
[2020-03-01] MEDS: THIAMINE HCL 100 MG TABLET PO SCH (08:17)
[2020-03-01] MEDS: AMLODIPINE 2.5 MG TAB PO SCH ×2 (08:17→20:37)
[2020-03-01] MEDS: CEFTRIAXONE/SWI 1gm 1 GM/10 ML SYR IV SCH (08:17)
[2020-03-01] MEDS: METOPROLOL XL 25 MG TAB PO SCH ×2 (08:17→20:38)
[2020-03-01] MEDS: FOLIC ACID 1 MG TABLET PO SCH (08:17)
[2020-03-01] MEDS: HEPARIN 5000 UNIT/ML 1 ML VIAL SQ SCH ×2 (08:18→20:36)
[2020-03-01 09:24] LABS: Anisocytosis 3+; Blood Morphology Comment NOTED (NOT SEEN); Macrocytosis 2+; Platelet Estimate ADEQ; Poikilocytosis 2+; Polychromasia 2+; Target Cells 1+
[2020-03-01] MEDS: HYDROMORPHONE HCL 1 MG/ML INJ IV PRN ×4 (09:49→21:50)
--- NOTE | 2020-03-01 11:53 | P.PN ---
Subjective Date of Service: 03/01/20 Primary Care Provider: Nighat Virgen Chief Complaint: Sickle cell crisis Subjective: Improving Patient still with significant pain. Review of Systems 10-point ROS is otherwise unremarkable Musculoskeletal: Other (Generalized pain) Physical Examination - Vital Signs Temperature: 97.0 F Blood Pressure: 125/85 Pulse: 77 Respirations: 19 Pulse Ox (%): 100 - Physical Exam General: Alert, In no apparent distress HEENT: Atraumatic, PERRLA, EOMI Neck: Supple, JVD not distended Respiratory: Clear to auscultation bilaterally, Normal air movement Cardiovascular: Regular rate/rhythm, Normal S1 S2 Gastrointestinal: Normal bowel sounds, No tenderness Musculoskeletal: No tenderness Integumentary: No rashes Neurological: Normal speech, Normal tone, Normal affect Lymphatics: No axilla or inguinal lymphadenopathy - Studies Microbiology Data (last 24 hrs): 02/24/20 08:41 Blood - Blood Aerobic Blood Culture - Final No growth in 5 days. 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 Patient is ambulating now. Urinating frequently, maintenance fluids decreased to 75 cc/hour. Patient is taking oral [place] as well and attempt to wean herself off of the Dilaudid. Anticipate clinical improvement next 24 hr. Possible discharge tomorrow. Urine Culture positive for Klebsiella pneumoniae, leukocytosis: White blood cell count improving, will continue Rocephin this time. At discharge patient can be started on Augmentin. 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 Patient has use of her left lower leg and is able to ambulate independently. History of myocardial infarct: Denies chest pain and has no cardiac issues. Patient on telemetry, will continue to monitor. History of seizures: No seizures in the recent past. Will resume home medications once verified. Will monitor for seizures Critical Care: No Time Spent Managing Pts Care (In Minutes): 55
--- NOTE | 2020-03-01 14:50 | ECHO ---
HEIGHT: 5 ft 2 in WEIGHT: 160 lb 0 oz DATE OF STUDY: 03/01/[address]: Juan Gill DO 2-DIMENSIONAL: YES M.MODE: YES DOPPLER: YES COLOR FLOW: YES TDS: NO PORTABLE: NO DEFINITY: NO BUBBLE STUDY: NO DIAGNOSIS: HYPERTENSION, SICKLE CELL CARDIAC HISTORY: CATHERIZATION: NO SURGERY: NO PROSTHETIC VALVE: NO PACEMAKER: NO MEASUREMENTS (cm) DIASTOLIC (NORMALS) SYSTOLIC (NORMALS) IVSd 1.1 (0.6-1.2) LA Diam 4.7 (1.9-4.0) LVEF 52% LVIDd 4.2 (3.5-5.7) LVIDs 3.1 (2.0-3.5) %FS 27% LVPWd 1.3 (0.6-1.2) Ao Diam 2.8 (2.0-3.7) 2 DIMENSIONAL ASSESSMENT: RIGHT ATRIUM: ENLARGED LEFT ATRIUM: ENLARGED RIGHT VENTRICLE: NORMAL LEFT VENTRICLE: NORMAL TRICUSPID VALVE: MITRAL VALVE: PULMONIC VALVE: NORMAL AORTIC VALVE: PERICARDIAL EFFUSION: NONE AORTIC ROOT: NORMAL LEFT VENTRICULAR WALL MOTION: NORMAL DOPPLER/COLOR FLOW: NORMAL DIASTOLIC FUNCTION. PULMONARY HYPERTENSION WITH RIGHT VENTRICULAR SYSTOLIC PRESSURE OF 35 mmHg AND RIGHT ATRIAL PRESSURE. COMMENTS: NORMAL LEFT VENTRICULAR EJECTION FRACTION 55-60z% WITH NORMAL DIASTOLIC NORMAL WALL MOTION. BI-ATRIAL ENLARGEMENT. MODERATE TRICUSPID REGURGITATION. MILD AORTIC INSUFFICIENCY. MILD MITRAL REGURGITATION. PULMONARY HYPERTENSION WITH RIGHT VENTRICULAR SYSTOLIC PRESSURE OF 35 mmHg AND RIGHT ATRIAL PRESSURE WAS NOT CHECKED IN THE STUDY. TECHNOLOGIST: Tara GRANADOS
[2020-03-01] MEDS: MIRTAZAPINE 15 MG TAB PO SCH (20:38)
[2020-03-02] MEDS: HYDROMORPHONE HCL 1 MG/ML INJ IV PRN ×5 (01:35→21:44)
[2020-03-02] MEDS: PROMETHAZINE INJ 25 MG/ML AMP IV PRN ×2 (01:36→17:53)
[2020-03-02] MEDS: DIPHENHYDRAMINE 50 MG/ML VIAL IV PRN ×3 (05:48→21:44)
[2020-03-02] MEDS: CEFTRIAXONE/SWI 1gm 1 GM/10 ML SYR IV SCH (08:43)
[2020-03-02] MEDS: HEPARIN 5000 UNIT/ML 1 ML VIAL SQ SCH ×2 (08:44→20:43)
[2020-03-02] MEDS: AMLODIPINE 2.5 MG TAB PO SCH ×2 (08:44→20:43)
[2020-03-02] MEDS: THIAMINE HCL 100 MG TABLET PO SCH (08:44)
[2020-03-02] MEDS: FOLIC ACID 1 MG TABLET PO SCH (08:44)
[2020-03-02] MEDS: METOPROLOL XL 25 MG TAB PO SCH ×2 (08:44→20:43)
--- NOTE | 2020-03-02 09:10 | RAD REPORT ---
EXAM DESCRIPTION: RAD - Chest Single View - 03/02/2020 9:05 am CLINICAL HISTORY: evaluate for chf Chest pain. COMPARISON: Chest Single View dated 02/23/2020; Chest Single View dated 12/22/2019; Chest Single View da mike 05/24/2019; Chest Single View dated 04/12/2019 FINDINGS: Portable technique limits examination quality. Mild interstitial prominence is present, unchanged. The heart is moderately enlarged in size. No disp laced fractures. IMPRESSION: Stable chest since 02/23/2020.
--- NOTE | 2020-03-02 18:38 | P.PN ---
Subjective Date of Service: 03/02/20 Primary Care Provider: Nighat Virgen Chief Complaint: Sickle cell crisis Subjective: Other (Patient reports improvement in pain. Some swelling to the left upper extremity.) Physical Examination - Vital Signs Temperature: 97.4 F Blood Pressure: 140/82 Pulse: 76 Respirations: 19 Pulse Ox (%): 96 - Physical Exam General: Alert, Cooperative HEENT: Atraumatic Neck: Supple Respiratory: Clear to auscultation bilaterally, Normal air movement Cardiovascular: Normal pulses, Regular rate/rhythm Gastrointestinal: Normal bowel sounds, Soft and benign, Non-distended Integumentary: Other (Swelling to the left upper extremity. 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 Patient is ambulating now. Patient is taking oral [place] as well and attempt to wean herself off of the Dilaudid. Patient had some swelling to the left upper extremity. Will order venous Doppler to further evaluate. Apparently patient has been declining heparin DVT prophylaxis. Patient encouraged to take this. Hopefully patient will improve. Anticipate likely home tomorrow. Urine Culture positive for Klebsiella pneumoniae, leukocytosis: White blood cell count improving, will continue Rocephin this time. At discharge patient can be started on Augmentin. 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 Patient has use of her left lower leg and is able to ambulate independently. History of myocardial infarct: Denies chest pain and has no cardiac issues. Patient on telemetry, will continue to monitor. History of seizures: No seizures in the recent past. Will resume home medications once verified. Will monitor for seizures Time Spent Managing Pts Care (In Minutes): 55
--- NOTE | 2020-03-02 19:23 | RAD REPORT ---
EXAM DESCRIPTION: US - UPPER EXTREMITY VENOUS UNILATE - 03/02/2020 6:53 pm CLINICAL HISTORY: /left arm swelling. COMPARISON: None. FINDINGS: Left internal jugular vein, left subclavian vein, , left brachial vein, left cephalic, lef t basilic, left ulnar and left radial veins demonstrate phasic signal. The veins are compressible. Do ppler demonstrates good flow. . The evaluation of the left axillary vein is limited secondary to difficulty with patient positioning. IMPRESSION: No sonographic evidence of thrombus involving the left upper extremity veins.
[2020-03-02] MEDS: MIRTAZAPINE 15 MG TAB PO SCH (20:42)
[2020-03-03] MEDS: HYDROMORPHONE HCL 1 MG/ML INJ IV PRN ×3 (01:42→10:05)
[2020-03-03] MEDS: PROMETHAZINE INJ 25 MG/ML AMP IV PRN ×3 (01:42→17:49)
[2020-03-03] MEDS: DIPHENHYDRAMINE 50 MG/ML VIAL IV PRN ×3 (05:52→21:41)
[2020-03-03 08:22] LABS: MPV 9.7 fL (7.6-11.3); RBC Red Blood Cell Count 1.83 M/uL (3.86-4.86)
[2020-03-03 08:33] LABS: BUN Blood Urea Nitrogen 11 mg/dL (7-18); Bicarbonate 31 mmol/L (21-32); Glucose Level 102 mg/dL (74-106); Magnesium 1.6 mg/dL (1.8-2.4); Potassium 4.7 mmol/L (3.5-5.1); Sodium Level 140 mmol/L (136-145)
[2020-03-03 08:34] LABS: Hematocrit 19.7 % (36.0-45.0)
[2020-03-03] MEDS ORDERED: MAGNESIUM SULFATE 1 gm IVPB 1 GM/100 ML BAG IV ONE (08:48)
[2020-03-03] MEDS: HEPARIN 5000 UNIT/ML 1 ML VIAL SQ SCH ×2 (09:00→21:54)
[2020-03-03] MEDS: AMLODIPINE 2.5 MG TAB PO SCH ×2 (09:22→21:41)
[2020-03-03] MEDS: FOLIC ACID 1 MG TABLET PO SCH (09:22)
[2020-03-03] MEDS: CEFTRIAXONE/SWI 1gm 1 GM/10 ML SYR IV SCH (09:22)
[2020-03-03] MEDS: THIAMINE HCL 100 MG TABLET PO SCH (09:23)
[2020-03-03] MEDS: METOPROLOL XL 25 MG TAB PO SCH ×2 (09:23→21:43)
[2020-03-03 09:28] LABS: Anisocytosis 2+; Blood Morphology Comment NOTED (NOT SEEN); Elliptocytes 1+; Hypochromasia 1+; Macrocytosis 1+; Platelet Estimate ADEQ; Poikilocytosis SLIGHT
[2020-03-03 09:29] LABS: Howell-Jolly Bodies NOTED
[2020-03-03] MEDS: HYDROMORPHONE HCL 2 MG/ML inj IV PRN ×3 (13:56→21:40)
--- NOTE | 2020-03-03 14:02 | P.PN ---
Subjective Date of Service: 03/03/20 Primary Care Provider: Nighat Virgen Chief Complaint: Sickle cell crisis Subjective: Improving, Doing well Physical Examination - Vital Signs Temperature: 97 F Blood Pressure: 142/86 Pulse: 79 Respirations: 18 Pulse Ox (%): 99 - Physical Exam General: Alert, Cooperative HEENT: Atraumatic Neck: Supple Respiratory: Clear to auscultation bilaterally Cardiovascular: Normal pulses, Regular rate/rhythm Gastrointestinal: Normal bowel sounds Integumentary: No erythema, No warmth, No cyanosis Neurological: Normal speech, Normal strength at 5/5 x4 extr, Normal tone - Studies Medications List Reviewed: Yes Assessment & Plan Discharge Plan: Home Plan to discharge in: 24 Hours Physician Review Additional Text: Impression: Sickle cell crisis with history of aplastic anemia: Hyperkalemia Urine Culture positive for Klebsiella pneumoniae, leukocytosis 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 Encourage ambulation, incentive spirometer. Continue to wean off IV pain medication. Venous Doppler of left upper extremity unremarkable. Anticipate improvement over the next 24 hr. Likely discharge tomorrow. Patient still requires oxygen. Patient may qualify for oxygen due to her CHF. Will discuss further with social work. Urine Culture positive for Klebsiella pneumoniae, leukocytosis: White blood cell count improving, will continue Rocephin this time. At discharge patient can be started on Augmentin. 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 Patient has use of her left lower leg and is able to ambulate independently. History of myocardial infarct: Denies chest pain and has no cardiac issues. Patient on telemetry, will continue to monitor. History of seizures: No seizures in the recent past. Will resume home medications once verified. Will monitor for seizures Chronic diastolic CHF with noted by atrial enlargement, moderate tricuspid regurgitation, pulmonary hypertension on echocardiogram EF around 55%: Overall stable. Patient will likely require oxygen at discharge. 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 Currently on 2 L per nasal cannula. Will also arrange for home health and physical therapy. Time Spent Managing Pts Care (In Minutes): 55
[2020-03-03] MEDS: MIRTAZAPINE 15 MG TAB PO SCH (21:43)
[2020-03-03] MEDS: AMOX/K CLAV 875 MG TAB PO SCH (21:43)
[2020-03-04] MEDS: HYDROMORPHONE HCL 2 MG/ML inj IV PRN ×4 (01:01→13:23)
[2020-03-04] MEDS: PROMETHAZINE INJ 25 MG/ML AMP IV PRN ×2 (01:05→09:06)
[2020-03-04 04:48] LABS: Absolute Lymphocytes (CBC) 4.8 K/uL (0.7-4.9); Basophils % 1.9 % (0-1.3); Lymphocytes % 27.8 % (15.3-44.8); MPV 9.8 fL (7.6-11.3); RBC Red Blood Cell Count 1.85 M/uL (3.86-4.86)
[2020-03-04 04:50] LABS: Hematocrit 19.5 % (36.0-45.0)
[2020-03-04] MEDS: DIPHENHYDRAMINE 50 MG/ML VIAL IV PRN ×2 (04:51→13:25)
[2020-03-04] MEDS: HEPARIN 5000 UNIT/ML 1 ML VIAL SQ SCH (09:00)
[2020-03-04] MEDS: AMOX/K CLAV 875 MG TAB PO SCH (09:03)
[2020-03-04] MEDS: FOLIC ACID 1 MG TABLET PO SCH (09:03)
[2020-03-04] MEDS: AMLODIPINE 2.5 MG TAB PO SCH (09:04)
[2020-03-04] MEDS: METOPROLOL XL 25 MG TAB PO SCH (09:04)
[2020-03-04] MEDS: THIAMINE HCL 100 MG TABLET PO SCH (09:15)
[2020-03-04 09:41] LABS: BUN Blood Urea Nitrogen 10 mg/dL (7-18); Bicarbonate 31 mmol/L (21-32); Glucose Level 132 mg/dL (74-106); Magnesium 1.7 mg/dL (1.8-2.4); Potassium 4.6 mmol/L (3.5-5.1); Sodium Level 136 mmol/L (136-145)
[2020-03-04] MEDS ORDERED: MAGNESIUM SULFATE 1 gm IVPB 1 GM/100 ML BAG IV ONE (09:56)
[2020-03-04 10:56] VITALS: O2SAT 95
--- NOTE | 2020-03-04 13:13 | P.DS ---
Admission Date: 02/24/20 Discharge Date: 03/04/20 Primary Care Provider: Nighat Virgen Disposition: DC HOME/HOME HEALTH CARE Discharge Condition: GOOD Reason for Admission: Sickle cell crisis Consultations: none Procedures: ECHO: Ejection fraction 52% LEFT VENTRICULAR WALL MOTION: NORMAL DOPPLER/COLOR FLOW: NORMAL DIASTOLIC FUNCTION. PULMONARY HYPERTENSION WITH RIGHT VENTRICULAR SYSTOLIC PRESSURE OF 35 mmHg AND RIGHT ATRIAL PRESSURE. COMMENTS: NORMAL LEFT VENTRICULAR EJECTION FRACTION 55-60z% WITH NORMAL DIASTOLIC NORMAL WALL MOTION. BI-ATRIAL ENLARGEMENT. MODERATE TRICUSPID REGURGITATION. MILD AORTIC INSUFFICIENCY. MILD MITRAL REGURGITATION. PULMONARY HYPERTENSION WITH RIGHT VENTRICULAR SYSTOLIC PRESSURE OF 35 mmHg AND RIGHT ATRIAL PRESSURE WAS NOT CHECKED IN THE STUDY. CT Scan: FINDINGS: The lower lung forte are clear. The liver appears enlarged in size with a nodular contour suspicious for cirrhosis. Cholecystectomy clips are seen. Spleen appears absent. The pancreas and adrenal glands are grossly unremarkable for noncontrast imaging.No urinary tract stone or obstructive uropathy seen. 27 mm benign cyst is present superior pole right kidney. No bowel obstruction, free air, free fluid or abscess. Umbilical hernia is present containing fat and a mild amount fluid. Moderate stool is seen throughout the colon. The appendix is normal. The osseous structures are within normal limits. IMPRESSION: Hepatomegaly with mild nodular liver contour suspicious for underlying cirrhosis. Cholecystectomy clips. Venous Doppler: FINDINGS: Left internal jugular vein, left subclavian vein, , left brachial vein, left cephalic, left basilic, left ulnar and left radial veins demonstrate phasic signal. The veins are compressible. Doppler demonstrates good flow. . The evaluation of the left axillary vein is limited secondary to difficulty with patient positioning. IMPRESSION: No sonographic evidence of thrombus involving the left upper extremity veins. CXR: FINDINGS: Portable technique limits examination quality. Mild interstitial prominence is present, unchanged. The heart is moderately enlarged in size. No displaced fractures. IMPRESSION: Stable chest since 02/23/2020. Medical Problem List: Sickle cell crisis with history of sickle cell disease UTI, Urine Culture positive for Klebsiella pneumoniae, leukocytosis History of CVA with residual left-sided weakness and contracture of left hand History of CAD History of seizures with no seizures in the recent past Chronic diastolic CHF with noted by atrial enlargement, moderate tricuspid regurgitation, pulmonary hypertension on echocardiogram EF around 55% Elevated liver function with noted CT finding of Hepatomegaly with mild nodular liver contour, suspicious for cirrhosis Brief History of Present Illness: 39-year-old female presented to emergency room with pain all over. Patient with history of sickle cell disease. Patient found to have sickle cell crisis. Patient admitted for further evaluation and treatment. Hospital Course: Patient presented with sickle cell crisis. Patient with history of sickle cell disease. Patient was admitted for further evaluation and treatment. Patient received IV fluids, pain control. Her condition improved. Hospitalization was prolonged due to control pain. At discharge her pain has significantly improved. Recommendations for the patient to continue with her pain medication-[place] 10/325 mg every 4 hr as needed for pain. Recommend to limit medication if no pain. 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 Will also recommend to continue with thiamine 100 mg daily, folic acid 1 mg daily. Recommend to recheck lab-CBC in 1-2 weeks to monitor her progress. Patient patient also had UTI with urine culture positive for Klebsiella pneumoniae. Patient was treated during the course of her stay. Patient received IV Rocephin and Augmentin. Patient without symptoms at this time. UTI prevention education will be provided. Patient has hypertension. Medications were adjusted during the course of her stay. Patient takes Norvasc. Toprol-XL was added. At discharge blood pressure stable. At discharge will recommend to continue Norvasc 2.5 mg 1 pill twice daily and Toprol-XL 25 mg 1 pill twice daily. Recommend to maintain blood pressure less than 140/90. Further adjustment can be done by her PCP. Patient with history of CAD. Patient had echocardiogram. Echo shows normal ejection fraction of 52%. Pulmonary hypertension with right ventricular systol ic pressure of 35 mmHg noted. Suspect underlying diastolic dysfunction. Recommend to continue 1500 cc per day fluid restriction. If her weight increases by more than 5 lb she is to contact her PCP for further recommendation. Recommend follow up with cardiology as an outpatient to further address and monitor. Home oxygen has been arranged for underlying CHF. Patient currently on 2 L per nasal cannula. This can be weaned off as an outpatient. Patient with history of CVA with residual left-sided weakness and contracture of the left hand. This has remained stable. Patient will continue with her medications. Recommend to continue folic acid 1 mg daily[address] Patient had CT scan. Hepatomegaly with mild nodular liver contour noted. This is suspicious for cirrhosis. Liver enzymes were elevated in the course of her stay. This was stable. Recommend follow up with GI to further evaluate and address. Recommend to limit Tylenol. Patient may require biopsy in the future to further evaluate and address. This can be done with GI. Recommend to recheck lab-CMP in 1-2 weeks to monitor her progress. Patient had low magnesium levels. This was replaced during the course of her stay. At discharge she will continue with magnesium oxide 400 mg daily. Recommend to recheck lab-magnesium level in 1 week to monitor her progress. Vital Signs/Physical Exam: Temp Pulse Resp BP Pulse Ox 97.8 F 75 19 167/92 H 96 03/04/20 08:00 03/04/20 09:04 03/04/20 09:34 03/04/20 09:04 03/04/20 09:34 General: Alert, In no apparent distress, Oriented x3, Cooperative HEENT: Atraumatic Neck: Supple Respiratory: Clear to auscultation bilaterally, Normal air movement Cardiovascular: Normal pulses, Regular rate/rhythm Gastrointestinal: Normal bowel sounds, Soft and benign, Non-distended Neurological: Normal speech, Normal strength at 5/5 x4 extr, Normal tone, Normal affect Laboratory Data at Discharge: WBC 17.2 K/uL (4.3-10.9) H 03/04/20 04:10 Hgb 6.7 g/dL (12.0-15.0) L* 03/04/20 04:10 Hct 19.5 % (36.0-45.0) L* 03/04/20 04:10 Plt Count 148 K/uL (152-406) L 03/04/20 04:10 PT 14.2 SECONDS (9.5-12.5) H 02/23/20 08:00 INR 1.21 02/23/20 08:00 Sodium 136 mmol/L (136-145) 03/04/20 09:05 Potassium 4.6 mmol/L (3.5-5.1) 03/04/20 09:05 BUN 10 mg/dL (7-18) 03/04/20 09:05 Creatinine 0.63 mg/dL (0.55-1.3) 03/04/20 09:05 Glucose 132 mg/dL (74-106) H 03/04/20 09:05 Magnesium 1.7 mg/dL (1.8-2.4) L 03/04/20 09:05 Total Bilirubin 3.9 mg/dL (0.2-1.0) H 02/26/20 04:12 AST 242 U/L (15-37) H 02/26/20 04:12 ALT 63 U/L (12-78) 02/26/20 04:12 Alkaline Phosphatase 147 U/L (45-117) H 02/26/20 04:12 Home Medications: Amlodipine [Norvasc*] 2.5 mg PO BID 05/25/19 Hydrocodone Bit/Acetaminophen [[place] 10-325 Tablet] 1 tab PO Q4H PRN 05/25/19 Mirtazapine [Remeron*] 45 mg PO BEDTIME 05/25/19 Promethazine HCl 25 mg PO DAILY PRN 05/25/19 Folic Acid 1 mg PO DAILY #90 tablet 03/04/20 Magnesium Oxide [Mag 0X Tab] 400 mg PO DAILY #30 tab 03/04/20 Metoprolol Succinate [Toprol Xl*] 25 mg PO BID #60 tab 03/04/20 Thiamine HCl [Vitamin B-1*] 100 mg PO DAILY #90 tablet 03/04/20 New Medications: Folic Acid 1 mg PO DAILY #90 tablet Magnesium Oxide [Mag 0X Tab] 400 mg PO DAILY #30 tab Metoprolol Succinate [Toprol Xl*] 25 mg PO BID #60 tab Thiamine HCl [Vitamin B-1*] 100 mg PO DAILY #90 tablet Patient Discharge Instructions: 1. Follow up with PCP in one week to further monitor. 2. Patient presented with sickle cell crisis. Patient with history of sickle cell disease. Patient was admitted for further evaluation and t reatment. Patient received IV fluids, pain control. Her condition improved. Hospitalization was prolonged due to control pain. At discharge her pain has significantly improved. Recommendations for the patient to continue with her pain medication-[place] 10/325 mg every 4 hr as needed for pain. Recommend to limit medication if no pain. 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 Will also recommend to continue with thiamine 100 mg daily, folic acid 1 mg daily. Recommend to recheck lab-CBC in 1-2 weeks to monitor her progress. 3. Patient patient also had UTI with urine culture positive for Klebsiella pneumoniae. Patient was treated during the course of her stay. Patient received IV Rocephin and Augmentin. Patient without symptoms at this time. UTI prevention education will be provided. 4. Patient has hypertension. Medications were adjusted during the course of her stay. Patient takes Norvasc. Toprol-XL was added. At discharge blood pressure stable. At discharge will recommend to continue Norvasc 2.5 mg 1 pill twice daily and Toprol-XL 25 mg 1 pill twice daily. Recommend to maintain blood pressure less than 140/90. Further adjustment can be done by her PCP. 5. Patient with history of CAD. Patient had echocardiogram. Echo shows normal ejection fraction of 52%. Pulmonary hypertension with right ventricular systolic pressure of 35 mmHg noted. Suspect underlying diastolic dysfunction. Recommend to continue 1500 cc per day fluid restriction. If her weight increases by more than 5 lb she is to contact her PCP for further recommendation. Recommend follow up with cardiology as an outpatient to further address and monitor. Home oxygen has been arranged for underlying CHF. Patient currently on 2 L per nasal cannula. This can be weaned off as an outpatient. 6. Patient with history of CVA with residual left-sided weakness and contracture of the left hand. This has remained stable. Patient will continue with her medications. Recommend to continue folic acid 1 mg daily. 7. Patient had CT scan. Hepatomegaly with mild nodular liver contour noted. This is suspicious for cirrhosis. Liver enzymes were elevated in the course of her stay. This was stable. Recommend follow up with GI to further evaluate and address. Recommend to limit Tylenol. Patient may require biopsy in the future to further evaluate and address. This can be done with GI. Recommend to recheck lab-CMP in 1-2 weeks to monitor her progress. 8. Patient had low magnesium levels. This was replaced during the course of her stay. At discharge she will continue with magnesium oxide 400 mg daily. Recommend to recheck lab-magnesium level in 1 week to monitor her progress. Diet: AHA Activity: Fall precautions Time spent managing pt's care (in minutes): 55
[2020-03-04 15:22] VITALS: BP 123/78; TEMP 97.1
== END 2020-03-04 16:25 | disposition home health service (06) | DRG 812 ==
LOC: ER 07:39 → ERHOLD 13:26 → 2ND 14:29 → OBSVTOIN 02-24 15:58
PROVIDERS: ADMIT Family Medicine; ATTEND Family Medicine
PROC: 30233N1 Transfusion of Nonautologous Red Blood Cells into Peripheral Vein, Percutaneous Approach (ICD-10-PCS; principal; 2020-02-25)
DX: D57.00 Hb-SS disease with crisis, unspecified (principal); N39.0 Urinary tract infection, site not specified; I69.354 Hemiplegia and hemiparesis following cerebral infarction affecting left non-dominant side; I50.32 Chronic diastolic (congestive) heart failure; I25.2 Old myocardial infarction; Z88.5 Allergy status to narcotic agent; Z88.8 Allergy status to other drugs, medicaments and biological substances; Z79.891 Long term (current) use of opiate analgesic; Z79.899 Other long term (current) drug therapy; I25.10 Atherosclerotic heart disease of native coronary artery without angina pectoris; Z90.49 Acquired absence of other specified parts of digestive tract; Z90.711 Acquired absence of uterus with remaining cervical stump; E87.70 Fluid overload, unspecified; Z11.59 Encounter for screening for other viral diseases; Z79.01 Long term (current) use of anticoagulants; E87.5 Hyperkalemia; B96.1 Klebsiella pneumoniae [K. pneumoniae] as the cause of diseases classified elsewhere; D72.829 Elevated white blood cell count, unspecified; M24.542 Contracture, left hand; I11.0 Hypertensive heart disease with heart failure; I27.20 Pulmonary hypertension, unspecified; R79.89 Other specified abnormal findings of blood chemistry; K74.60 Unspecified cirrhosis of liver
CPT/HCPCS: 36415; 36430; 71045; 74176; 80048; 80053; 80076; 82947; 83605; 83735; 83880; 84132; 84145; 84484; 85014; 85018; 85025; 85044; 85610; 86850; 86870; 86900; 86901; 86922; 87040; 87077; 87086; 87088; 87186; 93005; 93306; 93971; 94640; 96361; 96374; 96375; 99285; G0378; J0610; J0696; J1170; J1200; J1644; J1940; J2550; J3475; J7030; J7050; P9016; Q0169; U0002

== ENCOUNTER 2020-03-22 11:55 | Inpatient (IN) | payer OTHER ==
--- OUTSIDE RECORDS SUMMARY | 2020-03-22 13:29 | XMS REPORT | Clinical Summary ---
:1980 Author Organization [employer] Address [address] [place] [address] Care Team Providers Name Role Phone Carlos [...] with crisis (HC C) (Primary Dx) after 03/22/2019 Immunizations Name Administration Dates Next Due FLUCELVAX [...] Comments Blood Pressure 126/87 06/23/2019 11:56 AM VEGETABLE VENDOR Pulse 85 06/23/2019 11:56 AM VEGETABLE VENDOR Temperature 36.7 C (98.1 F) 06/23/2019 11:56 AM VEGETABLE VENDOR Respiratory Rate 19 06/23/2019 11:56 AM VEGETABLE VENDOR Oxygen Saturation 98% 06/23/2019 1:08 PM VEGETABLE VENDOR Inhaled Oxygen Concentration - - Weight 76.7 kg (169 lb) 06/23/2019 3:08 AM VEGETABLE VENDOR Height 160 cm (5' 3") 06/17/2019 8:13 PM CDT Body Mass Index 29.94 06/17/2019 8:13 PM CDT Plan of Treatment Health Maintenance Due Date Last Done Comments CERVICAL CANCER SCREENING 2000 INFLUENZA VACCINE 03/20/2020 Procedures Procedure Name Priority Date/Time Associated Comments Diagnosis MANUAL DIFFERENTIAL Routine 06/23/2019 6:12 Resu lts for this AM VEGETABLE VENDOR procedure are i n the results section. ESTIMATED GFR Routine 06/23/2019 6:12 Results fo r this AM VEGETABLE VENDOR procedure are i n the results section. CBC WITH PLATELET AND Routine 06/23/2019 6:12 Re sults for this DIFFERENTIAL AM VEGETABLE VENDOR procedure are i n the results section. BASIC METABOLIC PANEL Routine 06/23/2019 6:12 Re sults for this AM VEGETABLE VENDOR procedure are i n the results section. SMEAR REVIEW Routine 06/22/2019 6:10 Results for this AM VEGETABLE VENDOR procedure are i n the results section. HC COMPLETE BLD COUNT Routine 06/22/2019 6:10 Re sults for this W/AUTO DIFF AM VEGETABLE VENDOR procedure are i n the results section. [...] are i n the results section. after 03/22/2019 Results Estimated GFR (06/23/2019 6:12 AM VEGETABLE VENDOR)Only the most recent of6 resultswithin the time period is included. Estimated GFR >=90 mL/min/1.73 CHANDRA ORTHODOXY Comment: m2 [place] Catergory Units Interpretation [...] specimen Performing Organization Address City/State/Zipcode Phone Number [facility] DEPARTMENT OF PATHOLOGY [address] [facility] X [address] AND [facility] [id number] [place] [address] X [address] HOSPITAL Manual differential (06/23/2019 6:12 AM VEGETABLE VENDOR)Only the most recent of4 results within the time period is included. Manual differential PERFORMED [facility] Neutrophils 57.0 39.0 - 69.0 [facility] Lymphocytes 30.0 25.0 - 45.0 [facility] Monocytes 11.0 (H) 0.0 - 10.0 % [facility] Eosinophils 2.0 0.0 - 5.0 % [facility] Basophils 1.0 0.0 - 1.0 % [facility] Nucleated RBC 14 /100 WBC [place] Comment: [facility] NRBC results have been factored into the WBC count. [facility] No further calculation is needed. Platelet slide review Reggie slt decr (A) [facility] Dohle bodies Occasional [facility] Toxic granulation Slight [facility] Neutrophils, Slight [place] vacuolated [facility] Anisocytosis Moderate [facility] Polychromasia Moderate [facility] Schistocytes Occasional [facility] Target cells Many (A) [facility] Sickle cells Occasional (A) [facility] Doty-Clearlake bodies Occasional [facility] Enlarged platelets Moderate (A) [facility] Giant platelets Occasional [facility] Elliptocytes Moderate (A) [facility] Specimen Performing Organization Address City/State/Zipcode Phone Number [facility] DEPARTMENT OF PATHOLOGY [address] [facility] X [address] AND [facility] [address] [facility] X [address] [facility] CBC with platelet and differential (06/23/2019 6:12 AM VEGETABLE VENDOR)Only the most recent of7 resultswithin the time period is included. WBC 12.6 (H)Comment: 4.5 - 11.0 [facility] WBC was corrected k/uL [facility] RBC 2.24 (L) 4.20 - 5.50 [facility] m/uL [facility] HGB 6.7 (LL) 12.0 - 16.0 [facility] Comment: g/dL [place] Result reviewed and called with read back to Diogenes CruzRN/6E 06:46 HOSPITAL 06/23/2019 slel HCT 21.1 (L) 37.0 - 47.0 % [facility] MCV 94.2 82.0 - 100.0 [facility] MCH 29.9 27.0 - 34.0 pg [facility] MCHC 31.8 31.0 - 37.0 [facility] g/dL [facility] RDW - SD 87.6 (H) 37.0 - 55.0 fL [facility] MPV 11.2 (H) 6.9 - 11.0 fL [facility] Platelet count 142 (L) 150 - 400 K/uL [facility] Nucleated RBC 10.30 /100 WBC [facility] Neutrophils 57.0 39.0 - 69.0 % [facility] Lymphocytes 30.0 25.0 - 45.0 % [facility] Monocytes 11.0 (H) 0.0 - 10.0 % [facility] Eosinophils 2.0 0.0 - 5.0 % [facility] Basophils 1.0 0.0 - 1.0 % [facility] Specimen Blood Performing Organization Address City/State/Zipcode Phone Number [facility] DEPARTMENT OF PATHOLOGY [address] [facility] [address] AND GENOMIC MEDICINE [facility] [address] [facility] [place] [address] HOSPITAL Basic metabolic panel (06/23/2019 6:12 AM VEGETABLE VENDOR)Only the most recent of5 results within the time period is included. Pathologist Sig nature Sodium 141 135 - 148 mEq/L [facility] Potassium 5.3 (H) 3.5 - 5.0 mEq/L [facility] Chloride 103 98 - 112 mEq/L [facility] CO2 30 24 - 31 mEq/L [facility] Anion gap 8@ANIO 7 - 15 mEq/L [facility] BUN 6 6 - 20 mg/dL [facility] Creatinine 0.46 (L) 0.50 - 0.90 mg/dL [facility] Glucose 113 (H) 65 - 99 mg/dL [facility] Calcium 9.2 8.3 - 10.2 mg/dL [facility] Specimen Plasma specimen Performing Organization Address City/[facility]/Zipcode Phone Number [facility] DEPARTMENT OF PATHOLOGY [address] [place] [address] Smear review (06/22/2019 6:10 AM VEGETABLE VENDOR)Only the most recent of4 resultswithin the time period is included. Platelet slide review Reggie adequate [facility] Anisocytosis Moderate [facility] Target cells Many (A) [facility] Ovalocytes Moderate [facility] Sickle cells Occasional (A) [facility] Doty-Clearlake bodies Occasional [facility] Elliptocytes Occasional [facility] Specimen Performing Organization Address [facility] Phone Number [facility] DEPARTMENT OF PATHOLOGY [address] [place] [address] Magnesium level (06/21/2019 5:30 AM CDT)Only the most recent of4 resultswithin the time period is included. Pathologist Sig nature Magnesium 1.6 1.6 - 2.6 mg/dL [facility] Specimen Plasma specimen Performing Organization Address City/[facility] Centercode Phone Number [facility] DEPARTMENT OF PATHOLOGY [address] [place] [address] POC glucose (06/19/2019 8:54 PM CDT)Only the most recent of6 resultswithin the time period is included. Pathologist Sig nature POC glucose 101 (H) 65 - 99 mg/dL [facility] Comment: [facility] RN Notified Meter ID: [id number] Quality Compliance Consultant: Zeb Smith Specimen Performing Organization Address City/State/Zipcode Phone Number [facility] DEPARTMENT OF PATHOLOGY [address] [facility]. [place], T X [address] AND GENOMIC MEDICINE [facility] [address] [facility] [place] [address] [facility] US Abdomen Complete (06/19/2019 6:15 AM CDT) [...] v isualized due to overlying bowel gas. [id number] Procedure Note Interface, Radiology Results Incoming - [...] definitively visualized due to overlying bowel gas. [id number] Performing Organization Address City/[facility]/Zipcode Phone Number [facility] [address] [place] [address] Ionized calcium (06/19/2019 5:48 AM CDT)Only the most recent of2 resultswithin the time period is included. [facility] pH 7.27 [facility] Ionized calcium 1.26 1.11 - 1.32 mmol/L [facility] Specimen Plasma specimen Performing Organization Address [facility] Cancer Centercode Phone Number [facility] DEPARTMENT OF PATHOLOGY [phone] [place] [address] X [address] AND [facility] [id number] [place] [phone] [place] [address] Hemoglobin & hematocrit (06/18/2019 5:40 PM CDT) [facility] HGB 7.2 (L) 12.0 - 16.0 g/dL [facility] HCT 22.7 (L) 37.0 - 47.0 % [facility] Specimen Blood Performing Organization Address [facility] Cancer Centercoar Phone Number [facility] DEPARTMENT OF PATHOLOGY [id number] [place] [address] X [address] AND [facility] [phone] [place] [address] X [address] [facility] Transfuse RBC (06/18/2019 5:32 PM CDT)Only the [...] 1411. They are aware of the fracture. [facility]-[id number] Procedure Note Interface, Radiology Results Incoming - [...] 1411. They are aware of the fracture. [facility]-[id number] Performing Organization Address City/[facility]/Zipcode Phone Number [facility] [address] [place] [address] Troponin (06/18/2019 5:10 AM CDT)Only the most recent of2 resultswithin the time period is included. Pathologist [facility] Troponin 0.006 0.000 - 0.040 PRATEEK ESCUDERO Comment: ng/mL [facility] Culture Jam [facility] Laboratories changed methodology eff ective: HOSPITAL 12/24/2018 at 10:00 am The new method has a 99th percentile cutoff of 0.040 n g/mL Specimen Plasma specimen Performing Organization Address [facility] Centercoar Phone Number [facility] DEPARTMENT OF PATHOLOGY [address] [place] [address] [employer], [place] X [address] AND [facility] [id number] [place] [address] [place], [place] X [address] HOSPITAL Potassium level (06/18/2019 1:10 AM CDT) Pathologist [facility] Potassium 4.2 3.5 - 5.0 mEq/L [facility] Specimen Plasma specimen Performing Organization Address [facility] Cancer Centercode Phone Number [facility] DEPARTMENT OF PATHOLOGY [id number] [place] [address] [employer], [place] X [address] AND [facility] [facility] [address] [place] [address] [employer], T X [address] HOSPITAL Blood culture, aerobic & anaerobic (06/17/2019 11:30 PM CDT) Pathologist [facility] Blood culture No growth after 5 days of incubation. MORGAN ESCUDERO isolate Comment: HOSPITAL Specimen Information Specimen Source: Blood Specimen Site: Antecubital, right Specimen Blood - Antecubital, right Performing Organization Address City/[facility]/Zipcode Phone Number [facility] DEPARTMENT OF PATHOLOGY AND [address] [place], [place] [address] [facility] [address] [place] [address] [place] antigen patient typing (06/17/2019 10:30 PM CDT) Pathologist Sig nature Amelie Antigen Patient NEG [facility] GAR [facility] Specimen Performing Organization Address [facility] Cancer Centercode Phone Number [facility] DEPARTMENT OF PATHOLOGY [address] [place] [address], X [address] AND [facility] [address] [place] [address] X [address] HOSPITAL e Antigen patient typing (little e) (06/17/2019 10:30 PM CDT) Pathologist Sig nature e Antigen Patient Typing POS [facility] (little e) [facility] Specimen Performing Organization Address [facility] Phone Number [facility] DEPARTMENT OF PATHOLOGY [address] [place] [address], X [address] AND [facility] [phone] [place] [address] X [address] [facility] Direct Cesar' (MEGHAN) (06/17/2019 10:30 PM CDT) Pathologist Sig nature [id number] Polyspecific POS [facility] Specimen Performing Organization Address [facility] Phone Number [facility] DEPARTMENT OF PATHOLOGY [address] [place] [address], [place] X [address] [address] [facility] c Antigen patient typing (little c) (06/17/2019 10:30 PM CDT) Pathologist Sig nature c Antigen Patient Typing NEG [facility] (little c) [facility] Specimen Performing Organization Address [facility] Cancer Centercode Phone Number [facility] DEPARTMENT OF PATHOLOGY [address] [place] [address], X [address] X [address] [facility] Positive MEGHAN reflex with saline (06/17/2019 10:30 PM CDT) Pathologist Sig nature IgG Cesar, gel POS [facility] Anti-complement NEG [facility] Specimen Performing Organization Address City/State/Zipcode Phone Number [facility] DEPARTMENT OF PATHOLOGY [address] [place] [address] AND [facility] [address] [place] [address] [facility] [address] [place] [address]. [place], [place] [address] HOSPITAL E antigen patient typing (06/17/2019 10:30 PM CDT) Pathologist Sig nature E Antigen Patient Typing NEG [facility] Specimen Performing Organization Address City/State/Zipcode Phone Number [facility] DEPARTMENT OF PATHOLOGY [phone] [place] [address]. [place], T X [address] AND [facility] [address] [place] [address]. [place], [place] [address] HOSPITAL C antigen patient typing (06/17/2019 10:30 PM CDT) Pathologist Sig nature C Antigen Patient Typing POS [facility] Specimen Performing Organization Address City/State/Zipcode Phone Number [facility] DEPARTMENT OF PATHOLOGY [address] [place] [address]. [place], T X [address] AND [facility] [address] [place] [address]. [place], T X [address] HOSPITAL Elution (06/17/2019 10:30 PM CDT) Pathologist Sig nature Elution NEG [facility] Specimen Performing Organization Address City/State/Zipcode Phone Number [facility] DEPARTMENT OF PATHOLOGY [address] [place] [address]. [place], X [address] AND [facility] [address] [place] [address]. [place], X [address] HOSPITAL Antibody identification (06/17/2019 10:30 PM CDT) [...] 3176. Antibody ID POS, Undetermined Specificity [facility] Comment: HOSPITAL Patient has a history of Anti-c, Anti-E, Anti-Cw, Anti -S, Anti-Wra and a cold agglutinin. All of the alloantibodies can cause red cell damage and are clinically significant. Red cells for transfusio n will phenotypically matched, sickle cell negative and cross match compatible. Verified by 3176. Specimen Performing Organization Address City/[facility]/Zipcode Phone Number [facility] DEPARTMENT OF PATHOLOGY AND [address] [place], [place] [id number] GENOMIC MEDICINE [address] [address] Prepare RBC, 2 Units (06/17/2019 10:30 PM CDT) Product name Red Blood Cells [place] -1, Leukored [facility] Unit number [id number] [facility] Product code [id number] [facility] Dispense status Transfused [facility] Blood expiration date [id number] [facility] Blood type code 5100 [facility] Blood type O POSITIVE [facility] Compatibility Compatible [facility] Product name Red Blood Cells [place] -1, Leukored [facility] Unit number [id number] [facility] Product code [id number] [facility] Dispense status Transfused [facility] Blood expiration date [id number] [facility] Blood type code 5100 [facility] Blood type O POSITIVE [facility] Compatibility Compatible [facility] Specimen Blood Performing Organization Address City/State/Zipcode Phone Number [facility] DEPARTMENT OF PATHOLOGY [phone] [place] [address] X [address] AND [facility] [address] [place] [address] X [address] HOSPITAL Type and screen (06/17/2019 10:30 PM CDT) ABO grouping O [facility] Rh type POS [facility] Antibody screen POS [facility] (gel) Comment: [place] Results called to Cristal Montes , RN 06/18/19 a t 00:05 with readback. HOSPITAL Specimen sent to [facility] Blood Bank for anti body identification. Allow 4-6 hours for compatible blood if needed. Specimen Blood Performing Organization Address City/[facility]/Zipcode Phone Number [facility] DEPARTMENT OF PATHOLOGY [address] [place] [address] X [address] X [address] HOSPITAL Phosphorus level (06/17/2019 10:30 PM CDT) Pathologist Sig nature Phosphorus 4.2 2.4 - 4.5 mg/dL [facility] Specimen Plasma specimen Performing Organization Address City/[facility]/Zipcode Phone Number [facility] DEPARTMENT OF PATHOLOGY [address] [place] [address] X [address] AND [facility] [address] [place] [address] X [address] [facility] Lactic acid level (06/17/2019 10:30 PM CDT) Pathologist Sig nature Lactic acid 0.7 0.5 - 2.2 mmol/L [facility] Specimen Plasma specimen Performing Organization Address City/[facility]/Zipcode Phone Number [facility] DEPARTMENT OF PATHOLOGY [address] [place] [address] X [address] AND [facility] [phone] [place] [address] X [address] [facility] Comprehensive metabolic panel (06/17/2019 10:30 PM CDT) Sodium 137 135 - 148 [facility] mEq/L [facility] Potassium 5.7 (H)Comment: 3.5 - 5.0 [facility] Specimen slightly mEq/L [place] hemolyzed. HOSPITAL Interpret results accordingly. Chloride 107 98 - 112 [facility] mEq/L [facility] CO2 22 (L) 24 - 31 mEq/L [facility] Anion gap 8@ANIO 7 - 15 mEq/L [facility] BUN 11 6 - 20 mg/dL [facility] Creatinine 0.60 0.50 - 0.90 [facility] mg/dL [facility] Glucose 90 65 - 99 mg/dL [facility] Calcium 9.5 8.3 - 10.2 [facility] mg/dL [facility] Protein 8.7 (H) 6.3 - 8.3 [facility] g/dL [facility] Albumin 3.6 3.5 - 5.0 [facility] g/dL [facility] A/G ratio 0.7 0.7 - 3.8 [facility] Alkaline 146 (H) 35 - 104 U/L [facility] phosphatase [facility] AST 210 (H) 10 - 35 U/L [facility] ALT 88 (H) 5 - 50 U/L [facility] Total bilirubin 2.5 (H) 0.2 - 1.2 [facility] mg/dL [facility] Specimen Plasma specimen Performing Organization Address City/State/Zipcode Phone Number [facility] DEPARTMENT OF PATHOLOGY [address] [facility] X [address] AND GENOMIC MEDICINE [facility] [address] [facility] X [address] [facility] Left arm midline (06/17/2019 10:10 PM CDT) Narrative Performed At Charlee Norton NP-C 10:32 PM Left arm midline Date/Time: 06/17/2019 10:10 PM Performed by: Charlee Norton NP-C Authorized by: Charlee Norton NP-C Consent: Consent obtained: Verbal Consent given by: Patient Risks discussed: Bleeding, incomple te drainage, infection, nerve damage, pain and poor cosmetic result Alternatives discussed: Delayed jessica atment Amenia protocol: Procedure explained and questions ans wered [...] 9:40 PM CDT) Specimen site Clean catch [facility] Color, UA Yellow [facility] Appearance, UA Clear [facility] Specific gravity, UA 1.012 1.001 - 1.030 [facility] pH, UA 5.0 5.0 - 9.0 [facility] Protein, UA Negative Negative [facility] Glucose, UA Negative Negative [facility] Ketones, UA Negative Negative [facility] Bilirubin, UA Negative Negative [facility] Blood, UA Small (A) Negative [facility] Nitrite, UA Negative Negative [facility] Urobilinogen, UA <2.0 <2.0 E.U./dL [facility] Leukocyte esterase, Negative Negative [facility] Epithelial cells, UA 2 /HPF [facility] Round epithelial <1 0 - 5 /HPF [facility] cells, [facility] WBC, UA 2 0 - 4 /HPF [facility] RBC, UA 3 0 - 5 /HPF [facility] Bacteria, UA Few None seen [facility] Yeast, UA None seen [facility] Yeast with None seen [facility] pseudohyphae, UA [facility] Hyaline casts, UA 0-2 /LPF [facility] Specimen Urine Performing Organization Address City/State/Zipcode Phone Number [facility] DEPARTMENT OF PATHOLOGY [address] [facility] [address] AND GENOMIC MEDICINE [facility] [address] [facility] [place] [address] HOSPITAL Urine culture (06/17/2019 9:40 PM CDT) Pathologist Sig nature Urine culture SEE COMMENTComment: [facility] Bacteriuria screen [facility] negative. Specimen Performing Organization Address City/[facility]/Zipcode Phone Number [facility] DEPARTMENT OF PATHOLOGY [address] [facility] [address] AND GENOMIC MEDICINE [facility] [address] [facility] [address] HOSPITAL ECG 12 lead (06/17/2019 8:54 PM CDT) Pathologist Sig nature Ventricular rate 92 [facility] Atrial rate [address] [facility] interval 180 [facility] QRSD interval 88 [facility] QT interval 380 [facility] QTC interval 469 [facility] P axis 1 58 [facility] QRS axis 1 23 [facility] T wave axis 51 [facility] EKG impression Normal sinus [facility] MUSE rhythm-Minimal voltage criteria for LVH, may be normal variant-Borderline ECG-No previous ECGs available-Electronicall y Signed By Gold VERAS, Kelvin Sanchez (2007) on 06/18/2019 8:24:22 PM Specimen Narrative Performed At This result has an attachment that is no t available. Performing Organization Address [facility] Phone Number [facility] [address] [place] [address] XR Chest 1 Vw Portable (06/17/2019 8:42 [...] Ther e is no acute osseous pathology. [facility]-[id number] Procedure Note Hm Interface, Radiology Results Incoming [...] Ther e is no acute osseous pathology. [facility]-[id number] Performing Organization Address City/[facility]/Zipcode Phone Number [employer] [address] [place] [address] after 03/22/2019 Advance Directives For more information, please contact: [phone] Type Date Recorded Patient Applique Sewer Explanati on Advance Directives, Living Will and Medical Power of Cleaning Professional
--- OUTSIDE RECORDS SUMMARY | 2020-03-22 13:31 | XMS REPORT | Clinical Summary ---
:1980 Author Organization [facility] Address [address] [place] [address] Care Team Providers Name Role Phone Justin Guaman MD Primary Care Provider Unavailable [facility] Unavailable Allergies Active Allergy Reactions Severity Noted Date Comments Dexchlorpheniram-Phenyleph Other (See Comments) 2019 Unknown reaction rine and severity Fentanyl Hives, Itching, Rash Low 09/25/2019 Mirtazapine Other (See Comments) 09/25/2019 Unknown reaction and severity fr om 2017 Morphine Hives, Itching, High 11/27/2013 seizures Other (See Comments) Metoclopramide Hcl Other (See Comments) High 12/30/2018 S eizures Butorphanol Tartrate Other (See Comments) High 11/27/2013 seizures Fpw-Mw-Hbq-Atropine-Hyosc- Other (See Comments) High 2014 seizure Scop [...] Medicine Aaron, 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[facility]); MD Tyler GRAYSON (acute kidney injury) (HCC); [...] 07/08/2019 Orders Only General Internal Medicine after 03/22/2019 Family History Medical History Relation Name Comments [...] YEAR if no 08/21/2018 IPPE) INFLUENZA VACCINE (#1) 2020 Procedures Procedure Name Priority Date/Time Associated [...] 312 ms QTC Calculation(Bazett) 418 ms P [place] 74 degrees R [place] 39 degrees T [place] 54 degrees Sinus tachycardia with occas ional [...] 364 ms QTC Calculation(Bazett) 464 ms P [place] 69 degrees R [place] 47 degrees T [place] 43 degrees Normal sinus rhythm Minimal voltage [...] REPORT OF PROCEDURE - 10/02/2019 10:52 AM STATION MECHANIC HELPER ENDOSCOPY SCAN (CELLAVISION MANUAL DIFF) Routine 09/30/2019 4:19 AM STATION MECHANIC HELPER Results for this procedure are i n the results section . CBC W/PLT COUNT & AUTO Routine 09/30/2019 4:19 AM STATION MECHANIC HELPER Results for this DIFFERENTIAL procedure are i n the results section . CBC W/PLT COUNT & AUTO Routine 09/30/2019 4:19 AM STATION MECHANIC HELPER Results for this DIFFERENTIAL procedure are i n the results section . (CELLAVISION MANUAL DIFF) Routine 09/29/2019 6:48 AM STATION MECHANIC HELPER Results for this procedure are i n the results section . CBC W/PLT COUNT & AUTO Routine 09/29/2019 6:48 AM STATION MECHANIC HELPER Results for this DIFFERENTIAL procedure are i n the results section . CBC W/PLT COUNT & AUTO Routine 09/29/2019 6:48 AM STATION MECHANIC HELPER Results for this DIFFERENTIAL procedure are i n the results section . VANCOMYCIN LEVEL, TROUGH Timed 09/28/2019 11:47 AM STATION MECHANIC HELPER Results for this procedure are i n the results section . (CELLAVISION MANUAL DIFF) Routine 09/28/2019 5:01 AM STATION MECHANIC HELPER Results for this procedure are i n the results section . CBC W/PLT COUNT & AUTO Routine 09/28/2019 5:01 AM STATION MECHANIC HELPER Results for this DIFFERENTIAL procedure are i n the results section . CBC W/PLT COUNT & AUTO Routine 09/28/2019 5:01 AM STATION MECHANIC HELPER Results for this DIFFERENTIAL procedure are i n the results section . TRANSFUSION SERVICE REPORT - 09/27/2019 5:51 PM STATION MECHANIC HELPER SCAN (CELLAVISION MANUAL DIFF) Routine 09/27/2019 4:54 AM STATION MECHANIC HELPER Results for this procedure are i n the results section . CBC W/PLT COUNT & AUTO Routine 09/27/2019 4:54 AM STATION MECHANIC HELPER Results for this DIFFERENTIAL procedure are i n the results section . CBC W/PLT COUNT & AUTO Routine 09/27/2019 4:54 AM STATION MECHANIC HELPER Results for this DIFFERENTIAL procedure are i n the results section . BASIC METABOLIC PANEL (7) Routine 09/27/2019 4:54 AM STATION MECHANIC HELPER Results for this procedure are i n the results section . PREPARE LEUKO-REDUCED RBC Routine 09/26/2019 11:54 PM STATION MECHANIC HELPER Results for this procedure are i n the results section . (CELLAVISION MANUAL DIFF) Routine 09/26/2019 7:42 AM STATION MECHANIC HELPER Results for this procedure are i n the results section . CBC W/PLT COUNT & AUTO Routine 09/26/2019 7:42 AM STATION MECHANIC HELPER Results for this DIFFERENTIAL procedure are i n the results section . CBC W/PLT COUNT & AUTO Routine 09/26/2019 7:42 AM STATION MECHANIC HELPER Results for this DIFFERENTIAL procedure are i n the results section . BASIC METABOLIC PANEL (7) Routine 09/26/2019 5:51 AM STATION MECHANIC HELPER Results for this procedure are i n the results section . TRANSFUSE LEUKO-REDUCED RED Routine 09/25/2019 6:34 PM STATION MECHANIC HELPER BLOOD CELLS TRANSFUSION SERVICE REPORT - 09/25/2019 6:01 PM STATION MECHANIC HELPER SCAN CATHETER TIP CULTURE Routine 09/25/2019 11:21 AM STATION MECHANIC HELPER Results for this procedure are i n the results section . IR PORT REMOVAL Routine 09/25/2019 11:20 AM STATION MECHANIC HELPER R esults for this procedure are i n the results section . (CELLAVISION MANUAL DIFF) Routine 09/25/2019 9:23 AM STATION MECHANIC HELPER Results for this procedure are i n the results section . CBC W/PLT COUNT & AUTO Routine 09/25/2019 9:23 AM STATION MECHANIC HELPER Results for this DIFFERENTIAL procedure are i n the results section . CBC W/PLT COUNT & AUTO Routine 09/25/2019 9:23 AM STATION MECHANIC HELPER Results for this DIFFERENTIAL procedure are i n the results section . BASIC METABOLIC PANEL (7) Routine 09/25/2019 9:23 AM STATION MECHANIC HELPER Results for this procedure are i n the results section . PT/APTT Routine 09/25/2019 5:14 AM STATION MECHANIC HELPER Resu lts for this procedure are i n the results section . SCREEN, URINE Routine 09/24/2019 10:59 PM STATION MECHANIC HELPER Results for this procedure are i n the results section . ANTIBODY IDENTIFICATION Routine 09/24/2019 6:22 PM STATION MECHANIC HELPER Results for this procedure are i n the results section . (CELLAVISION MANUAL DIFF) Routine 09/24/2019 8:36 AM STATION MECHANIC HELPER Results for this procedure are i n the results section . CBC W/PLT COUNT & AUTO Routine 09/24/2019 8:36 AM STATION MECHANIC HELPER Results for this DIFFERENTIAL procedure are i n the results section . CBC W/PLT COUNT & AUTO Routine 09/24/2019 8:36 AM STATION MECHANIC HELPER Results for this DIFFERENTIAL procedure are i n the results section . TYPE AND SCREEN, AUTOMATED Routine 09/24/2019 5:11 AM STATION MECHANIC HELPER Results for this procedure are i n the results section . TRANSFUSION SERVICE REPORT - 07/22/2019 5:54 PM STATION MECHANIC HELPER SCAN RHYTHM STRIP - SCAN 07/22/2019 3:13 PM STATION MECHANIC HELPER RHYTHM STRIP - SCAN 07/22/2019 3:13 PM STATION MECHANIC HELPER RHYTHM STRIP - SCAN 07/22/2019 3:13 PM STATION MECHANIC HELPER PREPARE LEUKO-REDUCED RBC Routine 07/21/2019 11:54 PM STATION MECHANIC HELPER Results for this procedure are i n the results section . TRANSFUSION SERVICE REPORT - 07/21/2019 5:51 PM STATION MECHANIC HELPER SCAN ANTIBODY IDENTIFICATION Routine 07/21/2019 5:30 PM STATION MECHANIC HELPER Results for this procedure are i n the results section . TRANSFUSION SERVICE REPORT - 07/20/2019 5:51 PM STATION MECHANIC HELPER SCAN (MANUAL DIFFERENTIAL) Routine 07/20/2019 9:31 AM STATION MECHANIC HELPER Results for this procedure are i n the results section . CBC W/PLT COUNT & AUTO Routine 07/20/2019 9:31 AM STATION MECHANIC HELPER Results for this DIFFERENTIAL procedure are i n the results section . RETICULOCYTE COUNT Routine 07/20/2019 9:31 AM STATION MECHANIC HELPER Results for this procedure are i n the results section . CBC W/PLT COUNT & AUTO Routine 07/20/2019 9:31 AM STATION MECHANIC HELPER Results for this DIFFERENTIAL procedure are i n the results section . TRANSFUSE LEUKO-REDUCED RED Routine 07/20/2019 6:07 AM STATION MECHANIC HELPER BLOOD CELLS PREPARE LEUKO-REDUCED RBC Routine 07/19/2019 10:31 PM STATION MECHANIC HELPER Results for this procedure are i n the results section . ABORH, MANUAL Routine 07/19/2019 10:34 AM STATION MECHANIC HELPER Res ults for this procedure are i n the results section . TYPE AND SCREEN, AUTOMATED Routine 07/19/2019 10:34 AM STATION MECHANIC HELPER Results for this procedure are i n the results section . (MANUAL DIFFERENTIAL) Routine 07/19/2019 6:11 AM STATION MECHANIC HELPER Results for this procedure are i n the results section . CBC W/PLT COUNT & AUTO Routine 07/19/2019 6:11 AM STATION MECHANIC HELPER Results for this DIFFERENTIAL procedure are i n the results section . RETICULOCYTE COUNT Routine 07/19/2019 6:11 AM STATION MECHANIC HELPER Results for this procedure are i n the results section . CBC W/PLT COUNT & AUTO Routine 07/19/2019 6:11 AM STATION MECHANIC HELPER Results for this DIFFERENTIAL procedure are i n the results section . (MANUAL DIFFERENTIAL) Routine 07/18/2019 4:38 AM STATION MECHANIC HELPER Results for this procedure are i n the results section . CBC W/PLT COUNT & AUTO Routine 07/18/2019 4:38 AM STATION MECHANIC HELPER Results for this DIFFERENTIAL procedure are i n the results section . CBC W/PLT COUNT & AUTO Routine 07/18/2019 4:38 AM STATION MECHANIC HELPER Results for this DIFFERENTIAL procedure are i n the results section . (MANUAL DIFFERENTIAL) Routine 07/17/2019 5:15 AM STATION MECHANIC HELPER Results for this procedure are i n the results section . CBC W/PLT COUNT & AUTO Routine 07/17/2019 5:15 AM STATION MECHANIC HELPER Results for this DIFFERENTIAL procedure are i n the results section . CBC W/PLT COUNT & AUTO Routine 07/17/2019 5:15 AM STATION MECHANIC HELPER Results for this DIFFERENTIAL procedure are i n the results section . BASIC METABOLIC PANEL (7) Routine 07/17/2019 5:15 AM STATION MECHANIC HELPER Results for this procedure are i n the results section . (MANUAL DIFFERENTIAL) Routine 07/16/2019 5:40 AM STATION MECHANIC HELPER Results for this procedure are i n the results section . CBC W/PLT COUNT & AUTO Routine 07/16/2019 5:40 AM STATION MECHANIC HELPER Results for this DIFFERENTIAL procedure are i n the results section . CBC W/PLT COUNT & AUTO Routine 07/16/2019 5:40 AM STATION MECHANIC HELPER Results for this DIFFERENTIAL procedure are i n the results section . BASIC METABOLIC PANEL (7) Routine 07/16/2019 5:40 AM STATION MECHANIC HELPER Results for this procedure are i n the results section . (MANUAL DIFFERENTIAL) Routine 07/15/2019 5:07 AM STATION MECHANIC HELPER Results for this procedure are i n the results section . CBC W/PLT COUNT & AUTO Routine 07/15/2019 5:07 AM STATION MECHANIC HELPER Results for this DIFFERENTIAL procedure are i n the results section . RETICULOCYTE COUNT Routine 07/15/2019 5:07 AM STATION MECHANIC HELPER Results for this procedure are i n the results section . FERRITIN Routine 07/15/2019 5:07 AM STATION MECHANIC HELPER Resu lts for this procedure are i n the results section . BASIC METABOLIC PANEL (7) Routine 07/15/2019 5:07 AM STATION MECHANIC HELPER Results for this procedure are i n the results section . CBC W/PLT COUNT & AUTO Routine 07/15/2019 5:07 AM STATION MECHANIC HELPER Results for this DIFFERENTIAL procedure are i n the results section . REPORT OF PROCEDURE - 07/14/2019 9:51 AM STATION MECHANIC HELPER ENDOSCOPY SCAN (MANUAL DIFFERENTIAL) Routine 07/14/2019 5:07 AM STATION MECHANIC HELPER Results for this procedure are i n the results section . CBC W/PLT COUNT & AUTO Routine 07/14/2019 5:07 AM STATION MECHANIC HELPER Results for this DIFFERENTIAL procedure are i n the results section . BASIC METABOLIC PANEL (7) Routine 07/14/2019 5:07 AM STATION MECHANIC HELPER Results for this procedure are i n the results section . IMMATURE RETICULOCYTE Routine 07/14/2019 5:07 AM STATION MECHANIC HELPER Results for this FRACTION procedure are i n the results section . CBC W/PLT COUNT & AUTO Routine 07/14/2019 5:07 AM STATION MECHANIC HELPER Results for this DIFFERENTIAL procedure are i n the results section . TRANSFUSION SERVICE REPORT - 07/13/2019 6:02 PM STATION MECHANIC HELPER SCAN (MANUAL DIFFERENTIAL) Routine 07/13/2019 3:30 AM STATION MECHANIC HELPER Results for this procedure are i n the results section . CBC W/PLT COUNT & AUTO Routine 07/13/2019 3:30 AM STATION MECHANIC HELPER Results for this DIFFERENTIAL procedure are i n the results section . BASIC METABOLIC PANEL (7) Routine 07/13/2019 3:30 AM STATION MECHANIC HELPER Results for this procedure are i n the results section . IMMATURE RETICULOCYTE Routine 07/13/2019 3:30 AM STATION MECHANIC HELPER Results for this FRACTION procedure are i n the results section . CBC W/PLT COUNT & AUTO Routine 07/13/2019 3:30 AM STATION MECHANIC HELPER Results for this DIFFERENTIAL procedure are i n the results section . PREPARE LEUKO-REDUCED AND Routine 07/12/2019 11:55 PM STATION MECHANIC HELPER Results for this IRRADIATED RBC procedure are in the results section . TRANSFUSION SERVICE REPORT - 07/12/2019 6:05 PM STATION MECHANIC HELPER SCAN (MANUAL DIFFERENTIAL) Routine 07/12/2019 5:49 AM STATION MECHANIC HELPER Results for this procedure are i n the results section . CBC W/PLT COUNT & AUTO Routine 07/12/2019 5:49 AM STATION MECHANIC HELPER Results for this DIFFERENTIAL procedure are i n the results section . CBC W/PLT COUNT & AUTO Routine 07/12/2019 5:49 AM STATION MECHANIC HELPER Results for this DIFFERENTIAL procedure are i n the results section . PREPARE LEUKO-REDUCED AND Routine 07/11/2019 11:54 PM STATION MECHANIC HELPER Results for this IRRADIATED RBC procedure are in the results section . TRANSFUSE LEUKO-REDUCED RED Routine 07/11/2019 7:00 PM STATION MECHANIC HELPER BLOOD CELLS TRANSFUSION SERVICE REPORT - 07/11/2019 6:06 PM STATION MECHANIC HELPER SCAN (MANUAL DIFFERENTIAL) Routine 07/11/2019 4:21 AM STATION MECHANIC HELPER Results for this procedure are i n the results section . CBC W/PLT COUNT & AUTO Routine 07/11/2019 4:21 AM STATION MECHANIC HELPER Results for this DIFFERENTIAL procedure are i n the results section . BASIC METABOLIC PANEL (7) Routine 07/11/2019 4:21 AM STATION MECHANIC HELPER Results for this procedure are i n the results section . CBC W/PLT COUNT & AUTO Routine 07/11/2019 4:21 AM STATION MECHANIC HELPER Results for this DIFFERENTIAL procedure are i n the results section . TRANSFUSION SERVICE REPORT - 07/10/2019 5:56 PM STATION MECHANIC HELPER SCAN ANTIBODY IDENTIFICATION Routine 07/10/2019 4:13 PM STATION MECHANIC HELPER Results for this procedure are i n the results section . (MANUAL DIFFERENTIAL) Routine 07/10/2019 7:14 AM STATION MECHANIC HELPER Results for this procedure are i n the results section . CBC W/PLT COUNT & AUTO Routine 07/10/2019 7:14 AM STATION MECHANIC HELPER Results for this DIFFERENTIAL procedure are i n the results section . CBC W/PLT COUNT & AUTO Routine 07/10/2019 7:14 AM STATION MECHANIC HELPER Results for this DIFFERENTIAL procedure are i n the results section . BASIC METABOLIC PANEL (7) Routine 07/10/2019 7:13 AM STATION MECHANIC HELPER Results for this procedure are i n the results section . TRANSFUSE LEUKO-REDUCED AND Routine 07/10/2019 5:46 AM STATION MECHANIC HELPER IRRADIATED RED BLOOD CELLS ABORH, MANUAL Routine 07/09/2019 3:32 PM STATION MECHANIC HELPER Res ults for this procedure are i n the results section . TYPE AND SCREEN, AUTOMATED Routine 07/09/2019 3:32 PM STATION MECHANIC HELPER Results for this procedure are i n the results section . CBC W/PLT COUNT & AUTO Routine 07/09/2019 11:14 AM STATION MECHANIC HELPER Results for this DIFFERENTIAL procedure are i n the results section . CBC W/PLT COUNT & AUTO Routine 07/09/2019 11:14 AM STATION MECHANIC HELPER Results for this DIFFERENTIAL procedure are i n the results section . POTASSIUM STAT 07/09/2019 4:58 AM STATION MECHANIC HELPER Resu lts for this procedure are i n the results section . MAGNESIUM STAT 07/09/2019 4:57 AM STATION MECHANIC HELPER Resu lts for this procedure are i n the results section . BASIC METABOLIC PANEL (7) STAT 07/09/2019 4:57 AM STATION MECHANIC HELPER Results for this procedure are i n the results section . ED ECG INTERPRETATION Routine 07/09/2019 12:11 AM STATION MECHANIC HELPER Results for this procedure are i n the results section . CRITICAL CARE Routine 07/09/2019 12:11 AM STATION MECHANIC HELPER Res ults for this procedure are i n the results section . BLOOD CULTURE STAT 07/08/2019 8:58 PM STATION MECHANIC HELPER Res ults for this procedure are i n the results section . XR CHEST 1 VIEW STAT 07/08/2019 7:41 PM STATION MECHANIC HELPER R esults for this PORTABLE/BEDSIDE procedure a re in the results section . SCREEN, URINE STAT 07/08/2019 7:16 PM STATION MECHANIC HELPER Results for this procedure are i n the results section . URINALYSIS W/ MICROSCOPIC STAT 07/08/2019 7:16 PM STATION MECHANIC HELPER Results for this procedure are i n the results section . (MANUAL DIFFERENTIAL) STAT 07/08/2019 6:44 PM STATION MECHANIC HELPER Results for this procedure are i n the results section . CBC W/PLT COUNT & AUTO STAT 07/08/2019 6:44 PM STATION MECHANIC HELPER Results for this DIFFERENTIAL procedure are i n the results section . MAGNESIUM STAT 07/08/2019 6:44 PM STATION MECHANIC HELPER Resu lts for this procedure are i n the results section . RETICULOCYTE COUNT STAT 07/08/2019 6:44 PM STATION MECHANIC HELPER Results for this procedure are i n the results section . TROPONIN I STAT 07/08/2019 6:44 PM STATION MECHANIC HELPER Resu lts for this procedure are i n the results section . BASIC METABOLIC PANEL (7) STAT 07/08/2019 6:44 PM STATION MECHANIC HELPER Results for this procedure are i n the results section . CBC W/PLT COUNT & AUTO STAT 07/08/2019 6:44 PM STATION MECHANIC HELPER Results for this DIFFERENTIAL procedure are i n the results section . after 03/22/2019 Results RHYTHM STRIP - SCAN (12/30/2019 12:00 PM CDT)Only the most recent of4 results within the time period is included. Narrative Performed At This result has an attachment that is no t available. Manual Differential (12/28/2019 4:29 AM CDT)Only the most recent of14 results within the time period is included. % Neutros 61 % [facility] % Lymphs 23 % [facility] % Monos 11 % [facility] % Eos 3 % [facility] % Baso 2 % [facility] # Neutros 11.65 (H) 1.56 - 6.13 K/ul [facility] # Lymphs 4.39 (H) 1.18 - 3.74 K/ul [facility] # Monos 2.10 (H) 0.24 - 0.36 K/uL [facility] # Eos 0.57 (H) 0.04 - 0.36 K/uL [facility] # Baso 0.38 (H) 0.01 - 0.08 K/uL [facility] Total Counted [address] [facility] nRBC (manual) 7 (H) 0 - 0 /100 WBC [facility] Smudge Cells Present [facility] Giant Platelet Present [facility] Polychromasia 1+ few [facility] Anisocytosis 2+ moderate [facility] Poikilocytes 1+ few [facility] Target Cells 1+ few [facility]ickle Cells 1+ few [facility] Artifact Present [facility] Platelet [facility]c Adequate [facility] Specimen Blood Narrative Performed At Demolitionist ID - Flavia Ayan [facility] User comments: Slide comments: Performing Organization Address City/State/Zipcode Phone Number [facility] [address] [place] [address] CENTER CBC with platelet count + automated diff (12/28/2019 4:29 AM CDT)Only the most recent of28 resultswithin the time period is included. WBC 19.1 (H) 3.5 - 10.5 K/L [facility] RBC 2.02 (L) 3.93 - 5.22 M/L [facility] Hemoglobin 6.6 (L) 11.2 - 15.7 GM/DL [facility] Hematocrit 20.7 (L) 34.1 - 44.9 % [facility] MCV 102.5 (H) 79.4 - 94.8 fL [facility] MCH 32.7 (H) 25.6 - 32.2 pg [facility] MCHC 31.9 (L) 32.2 - 35.5 GM/DL [facility] RDW 18.4 (H) 11.7 - 14.4 % [facility] Platelets 364 150 - 450 K/CU MM [facility] MPV 10.7 9.4 - 12.3 fL [facility] nRBC 3 (H) 0 - 0 /100 WBC [facility] Specimen Blood Performing Organization Address City/[facility]/Zipcode Phone Number [address] [address] CENTER Magnesium (12/28/2019 4:29 AM CDT)Only the most recent of9 resultswithin the time period is included. Magnesium 1.5 (L) 1.6 - 2.6 mg/dL [facility] Specimen Blood Narrative Performed At Demolitionist ID - THAO Medina [facility] Performing Organization Address City/[facility]/Zipcode Phone Number [address] [address] CENTER Basic Metabolic Panel (12/28/2019 4:29 AM CDT)Only the most recent of18 results within the time period is included. Sodium 138 136 - 145 meq/L [facility] Potassium 3.6 3.5 - 5.1 meq/L [facility] Chloride 109 (H) 98 - 107 meq/L [facility] CO2 23 22 - 29 meq/L [facility] BUN 7 7 - 21 mg/dL [facility] Creatinine 0.79 0.57 - 1.25 mg/dL [facility] Glucose 89 70 - 105 mg/dL [facility] Calcium 8.4 8.4 - 10.2 mg/dL [facility] EGFR 98Comment: ESTIMATED GFR IS mL/min/1.73 sq m [facility] NOT ACCURATE CREATININE [facility] CLEARANCE IN PREDICTING GLOMERULAR FILTRATION RATE. ESTIMATED GFR IS NOT APPLICABLE FOR DIALYSIS PATIENTS. Specimen Blood Narrative Performed At Demolitionist ID - THAO Medina [facility] Specimen slightly icteric Performing Organization Address City/State/Zipcode Phone Number [facility] [address] [place] [address] CENTER TRANSFUSION SERVICE REPORT - SCAN (12/27/2019 5:51 PM CDT)Only the most recent of12 resultswithin the time period is included. Narrative Performed At This result has an attachment that is no t available. Vancomycin level, trough (12/26/2019 8:19 AM CDT)Only the most recent of3 resultswithin the time period is included. Vancomycin Tr 16.4 10.0 - 20.0 ug/mL [facility] Specimen Blood Narrative Performed At Demolitionist ID - ROMERO Smith [facility] Performing Organization Address City/State/Zipcode Phone Number [facility] [address] [place] [address] CENTER Prepare RBC (12/26/2019 4:32 AM CDT) Unit ABO O Pos SAFETRACE [place] UNIT NUMBER [id number] SAFETRACE [place] Status WORK IN PROGRESS SAFETRACE [place] Blood Bank Product RED BLOOD CELLS SAFETRACE [place] PRODUCT CODE [id number] SAFETRACE TX Unit ABO O Pos SAFETRACE TX UNIT NUMBER [id number] SAFETRACE TX Status WORK IN PROGRESS SAFETRACE TX Blood Bank Product RED BLOOD CELLS SAFETRACE TX PRODUCT CODE [id number] SAFETRACE TX CROSSMATCH COMPATIBLE SAFETRACE TX Unit ABO O Pos SAFETRACE TX UNIT NUMBER [id number] SAFETRACE TX Status TX_TIMEINCHART SAFETRACE TX Blood Bank Product RED BLOOD CELLS SAFETRACE TX PRODUCT CODE [id number] SAFETRACE TX CROSSMATCH COMPATIBLE SAFETRACE TX Unit ABO O Pos SAFETRACE TX UNIT NUMBER [id number] SAFETRACE TX Status WORK IN PROGRESS SAFETRACE TX Blood Bank Product RED BLOOD CELLS SAFETRACE TX PRODUCT CODE [id number] SAFETRACE TX Performing Organization Address [facility] Phone Number [place] Phosphorus (12/25/2019 4:10 AM CDT)Only the most recent of3 resultswithin the time period is included. Phosphorus 3.2 2.3 - 4.7 mg/dL [facility] Specimen Blood Narrative Performed At Demolitionist JAMILAH Medina [facility] Performing Organization Address City/[facility]/Zipcode Phone Number [address] [address] CENTER Hepatic function panel (12/25/2019 4:10 AM CDT)Only the most recent of3 results within the time period is included. Protein, Total 8.2 6.0 - 8.3 gm/dL [facility] Albumin 2.6 (L) 3.5 - 5.0 g/dL [facility] Total Bilirubin 3.8 (H) 0.2 - 1.2 mg/dL [facility] Bilirubin, Direct 2.0 (H) 0.1 - 0.5 mg/dL [facility] Alkaline Phosphatase 159 (H) 40 - 150 U/L [facility] AST 110 (H) 5 - 34 U/L [facility] ALT 88 (H) 6 - 55 U/L [facility] Specimen Blood Narrative Performed At Demolitionist JAMILAH Medina [facility] Specimen slightly icteric Performing Organization Address City/[facility] Phone Number [facility] [address] [place] [address] CENTER Prepare Leuko-Red RBC (12/23/2019 11:54 PM CDT)Only the most recent of4 results within the time period is included. Unit ABO O Pos [place] UNIT NUMBER [id number] [place] Status WORK IN PROGRESS [place] Blood Bank Product RED BLOOD CELLS [place] PRODUCT CODE [id number] [place] Unit ABO O Pos [place] UNIT NUMBER [id number] [place] Status WORK IN PROGRESS [place] Blood Bank Product RED BLOOD CELLS [place] PRODUCT CODE [id number] [place] CROSSMATCH COMPATIBLE [place] Unit ABO O Pos [place] UNIT NUMBER [id number] [place] Status TX_TIMEINCHART [place] Blood Bank Product RED BLOOD CELLS [place] PRODUCT CODE [id number] [place] CROSSMATCH COMPATIBLE [place] Unit ABO O Pos [place] UNIT NUMBER [id number] [place] Status TX_TIMEINCHART [place] Blood Bank Product RED BLOOD CELLS [place] PRODUCT CODE [id number] [place] Specimen Other Performing Organization Address City/[facility] Phone Number [place] Hemoglobin and hematocrit (12/23/2019 7:50 AM CDT)Only the most recent of4 resultswithin the time period is included. Hemoglobin 7.0 (L) 11.2 - 15.7 GM/DL [facility] Hematocrit 21.1 (L) 34.1 - 44.9 % [facility] Specimen Blood Narrative Performed At Demolitionist ID - [id number] [facility] Performing Organization Address [facility] Phone Number [address] [address] CENTER Transfuse Leuko-Red RBC (12/23/2019 1:08 AM CDT)Only the most recent of11 resultswithin the time period is included.Troponin I (12/22/2019 9:21 PM CDT) Only the most recent of4 resultswithin the time period is included. Troponin I 0.15 (H) 0.00 - 0.03 ng/mL [facility] Specimen Blood Narrative Performed At Troponin I (TnI) levels must be interpreted [facility] in the context of [...] acidosis, acute neurological disease, and persistent tachyarrhythmia. Demolitionist ID - BS Performing Organization Address [facility] Phone Number [address] [address] [place] Sodium, random urine (12/22/2019 4:33 PM CDT) Sodium Urine 35 meq/L [facility] Specimen Urine Narrative Performed At Reference Range: No Normals [facility] Demolitionist ID - DB Demolitionist ID - DB Performing Organization Address City/[facility]/Zipcode Phone Number [address] [address] CENTER Protein, random urine (12/22/2019 4:33 PM CDT) Protein, Urine 45 (H) 0 - 14 mg/dL [facility] Specimen Urine Narrative Performed At Demolitionist ID - DB [facility] Performing Organization Address City/[facility] Phone Number [address] [address] CENTER Potassium, random urine (12/22/2019 4:33 PM CDT) Potassium Urine 34.3 meq/L [facility] Specimen Urine Narrative Performed At Reference Range: No Normals [facility] Demolitionist ID - DB Performing Organization Address City/[facility] Phone Number [address] [address] CENTER Osmolality, urine (12/22/2019 4:33 PM CDT) Osmolality, Ur 353 50-1,200 mOsm/kg mOsm/kg [facility] Specimen Urine Performing Organization Address [facility] [place] [address] [place] Creatinine, random urine (12/22/2019 4:33 PM CDT) Creatinine, Ur 45.6 mg/dL [facility] Specimen Urine Narrative Performed At Reference Range: No Normals [facility] Demolitionist ID - DB Performing Organization Address [facility] Phone Number [address] [address] CENTER Antibody identification (12/22/2019 3:56 [...] Karina Hendrix M.D. Specimen Performing Organization Address City/[facility]/Zipcode Phone Number [place] ECG 12 lead (12/22/2019 3:35 PM CDT)Only the most recent of2 resultswithin the time period is included. Specimen Narrative Performed At Ventricular Rate 108 BPM GE MUSE Atrial Rate 108 BPM P-R Interval 158 ms QRS Duration 72 ms Q-T Interval 312 ms QTC Calculation(Bazett) 418 ms P [place] 74 degrees R [place] 39 degrees T [place] 54 degrees Sinus tachycardia with occasional Premat [...] 312 ms QTC Calculation(Bazett) 418 ms P [place] 74 degrees R [place] 39 degrees T [place] 54 degrees Sinus tachycardia with occasional Premat ure ventricular complexes Minimal voltage criteria for LVH, may be normal variant Borderline ECG When compared with ECG of 22-DEC-2019 06 :57, Premature ventricular complexes are now Present Confirmed by MD YOUNG JOSEPH P ([id number]) on 12/23/2019 6:54:58 AM Performing Organization Address [facility] Phone Number GE [place] Blood Culture - Routine (Right Venipuncture) (12/22/2019 2:01 PM CDT)Only the most recent of3 resultswithin the time period is included. Result No growth in 5 days [facility] Specimen Blood Performing Organization Address City/[facility]/Zipcode Phone Number [facility] [address] [place] [address] CENTER US abdomen limited (12/22/2019 1:50 PM CDT) Specimen Narrative Performed At FINAL REPORT [employer] History: Right upper quadrant abdominal pain, elevated [...] MD Report Verified Date/Time:12/22/2019 14:49:18 Reading Location: [address] Reading Room Procedure Note Interface, External [...] Verified Date/Time: 12/22/2019 1 4:49:18 Reading Location: [address] Radiolog y Reading Room Performing Organization Address City/State/Zipcode Phone Number GE RIS Urinalysis w/Microscopic + Reflex to Culture (12/22/2019 11:12 AM CDT) Color, UA Yellow [facility] Clarity, UA Hazy [facility] Specific [place], UA 1.013 1.001 - 1.035 [facility] pH, UA 5.5 5.0 - 8.0 [facility] Protein, UA 20 mg/dL (A) Negative [facility] Glucose, UA Negative Negative [facility] Ketones, UA Negative Negative [facility] Bilirubin, UA Negative Negative [facility] Blood, UA Small (A) Negative [facility] Nitrite, UA Negative Negative [facility] Leukocytes, UA Small (A) Negative [facility] Urobilinogen, UA 0.2 0.2 - 1.0 mg/dL [facility] RBC, UA 1 /HPF [facility] WBC, UA 10 /HPF [facility] Bacteria, UA Few [facility] Mucus Few [facility] Squam Epithel, UA <1 /HPF [facility] Specimen Source [facility] Specimen Urine Narrative Performed At Demolitionist ID - [auto] [facility] Demolitionist ID - tech Performing Organization Address City/State/Zipcode Phone Number [address] [address] [place] Strep pneumoniae antigen (12/22/2019 11:12 AM CDT) Strep pneumoniae Presumptive negative Presumptive negative [facility] Antigen for pneumococcal for pneumococcal [facility] pneumonia - see comment pneumonia - see CENTER comment, Presumptive negative for pneumococcal meningitis - see comment Specimen Urine Narrative Performed At Presumptive negative for pneumococcal [facility] pneumonia, suggesting no current or recent pneumococcal infection. Infection due to S. pneumoniae cannot be ruled out since the antigen present in the sample may be below the detection limit of the test. Performing Organization Address City/State/Zipcode Phone Number [address] [address] [place] Legionella antigen, urine (12/22/2019 11:12 AM CDT) Legionella Urine Antigen Negative - see [facility] commentComment: Negative [facility] for L. pneumophila serogroup 1 antigen, suggesting no recent or current infection with this serogroup. Legionellosis cannot be ruled out since other serogroups and species may cause disease. Specimen Urine Performing Organization Address City/State/Zipcode Phone Number [place] [phone] [place] [address] [place] Drug screen, urine, comprehensive (12/22/2019 11:12 AM CDT) Specimen Urine Narrative Performed At This result has an attachment that is no t available. Urine culture (12/22/2019 11:12 AM CDT) Result <10,000 col/mL skin valentino [facility] Specimen Urine Performing Organization Address City/State/Zipcode Phone Number [address] [address] [place] Respiratory Panel [facility] (12/22/2019 10:57 AM CDT) Human Metapneumovirus Not detected Not detected, [facility] [employer] [facility] Rhinovirus Not detected Not detected, [facility] [employer] [facility] Influenza A Not detected Not detected, [facility] [employer] [facility] INFLUENZA A (NO SUBTYPE) [facility] Influenza A subtype H1 [facility] Influenza A Subtype H3 [facility] Influenza A Subtype H1-2009 [facility] Influenza B Not detected Not detected, [facility] [employer] [facility] Respiratory Syncytial Virus Not detected Not detected, [facility] [employer] [facility] Parainfluenza Virus 1 Not detected Not detected, [facility] [employer] [facility] Parainfluenza Virus 2 Not detected Not detected, [facility] [employer] [facility] Parainfluenza virus 3 Not detected Not detected, [facility] [employer] [facility] Parainfluenza Virus 4 Not detected Not detected, [facility] [employer] [facility] Adenovirus Not detected Not detected, [facility] [employer] [facility] Coronavirus 229E Not detected Not detected, COUNT INCLUDES THE [facility] [employer] [facility] Coronavirus HKU1 Not detected Not detected, COUNT INCLUDES THE [facility] [employer] [facility] Coronavirus NL63 Not detected Not detected, COUNT INCLUDES THE [facility] [employer] [facility] Coronavirus OC43 Not detected Not detected, COUNT INCLUDES THE [facility] [employer]ocal [facility] Bordetella Pertussis Not detected Not detected, [facility] Equ[employer]ocal [facility] Chlamydophila Pneumoniae Not detected Not detected, [facility] [employer] [facility] Mycoplasma Pneumoniae Not detected Not detected, [facility] [employer] [facility] Specimen Nasopharyngeal Narrative Performed At Other viruses and bacteria not targeted by [facility] this PCR panel cannot be excluded; therefore clinical correlation and follow up of serology, culture results, and other molecular studies is required. The results are not intended to be used as the sole means for clinical diagnosis or patient management decisions. This sample was tested at the [facility] using the [employer]chol[employer] FilmArray Respiratory Panel. It is FDA cleared and has been verified and approved by the [facility] for clinical use on nasopharyngeal swab specimens. The performance of the FilmArray RP has not been established in individuals who received influenza vaccine.Recent administration of a nasal influenza vaccine may cause false positive results for Influenza A and/or Influenza B. Performing Organization Address City/[facility]/Zipcode Phone Number [address] [address] [place] Rapid Influenza A&B Screen (12/22/2019 10:57 AM CDT) Rapid Influenza A Antigen Negative Negative, Inconclusive [facility] Rapid influenza B Antigen Negative Negative, Inconclusive [facility] Specimen Nasal Performing Organization Address [facility] Phone Number [address] [address] [place] MRSA screen (12/22/2019 10:57 AM CDT) Result 2+ Methicillin resistant [facility] Staphylococcus aureus (A) [facility] Specimen Nasal Performing Organization Address [facility]/Zipcode Phone Number [address] [address] CENTER XR chest 1 view portable / bedside (12/22/2019 9:06 AM CDT)Only the most recent of2 resultswithin the time period is included. Specimen Narrative Performed At FINAL REPORT [facility] INDICATION: pneumonia COMPARISON: July 08, 2019 TECHNIQUE: Single frontal view of the est. FINDINGS: Lungs and pleura: Clear lungs. No effusi on. Heart and mediastinum: Normal heart size . Unremarkable mediastinal contours. Osseous structures: No acute abnormality . Other: None. IMPRESSION: No acute intrathoracic abnormality. Signed: Veto Del Valle MD Report Verified Date/Time:12/22/2019 10:06:04 Reading Location: [facility] Reading Room Procedure Note Interface, External [...] Verified Date/Time: 12/22/2019 1 0:06:04 Reading Location: [employer] Radiolog y Reading Room Performing Organization Address City/State/Zipcode Phone Number [facility] aPTT (12/22/2019 8:08 AM CDT) PTT 54.4 (H) 22.5 - 36.0 seconds [facility] Specimen Blood Performing Organization Address City/State/Zipcode Phone Number [address] [id number] [place] Prothrombin time/INR (12/22/2019 8:08 AM CDT) Protime 20.7 (H) 11.9 - 14.2 seconds [facility] INR 1.8 <=5.9 [facility] Specimen Blood Narrative Performed At Effective 01/15/2019: PT Reference Range [facility] Change New: 11.9-14.2Previous: 11.7-14.7 RECOMMENDED COUMADIN/WARFARIN INR THERAPY RANGES STANDARD DOSE: 2.0-3.0Includes: PROPHYLAXIS for venous thrombosis, systemic embolization; TREATMENT for venous thrombosis and/or pulmonary embolus. HIGH RISK: Target INR is 2.5-3.5 for patients wiht mechanical heart valves. Performing Organization Address City/[facility] Phone Number [address] [address] CENTER Fibrinogen (12/22/2019 8:08 AM CDT) Fibrinogen 521 (H) 225 - 434 mg/dl [facility] Specimen Blood Performing Organization Address [facility] Phone Number [address] [address] [place] Procalcitonin (12/22/2019 8:07 AM CDT) Procalcitonin 7.49 (H) <0.05 ng/mL [facility] Specimen Blood Narrative Performed At SEPSIS RISK (ng/mL) [facility] Low:0.05-0.50 Intermediate: 0.51-2.00 High: >=2.01 Performing Organization Address [facility] Phone Number [address] [address] CENTER Cortisol (12/22/2019 8:07 AM CDT) Cortisol, Total 20.4 (H) 3.7 - 19.4 ug/dL [facility] Specimen Blood Narrative Performed At Demolitionist ID - NTP [facility] Performing Organization Address City/[facility]/Zipcode Phone Number [address] [address] CENTER Type and screen, automated (12/22/2019 8:07 AM CDT)Only the most recent of4 resultswithin the time period is included. ABO/RH AUTOMATED (BEAKER) O POSITIVE [facility] Ab Scrn POSITIVEComment: Echo [address] [facility] Specimen Blood Performing Organization Address [facility] Phone Number [address] [address] Vitamin B12 and Folate (12/22/2019 8:07 AM CDT) Vitamin B12 788 213 - 816 pg/mL [facility] Folate 6.00 (L) >=7.00 ng/mL [facility] Specimen Blood Narrative Performed At Demolitionist ID - NTP [facility] Performing Organization Address [facility] Phone Number [address] [address] CENTER TSH/Free T4 If Indicated (12/22/2019 8:07 AM CDT) TSH 0.276 (L) 0.350 - 4.940 uIU/mL [facility] Specimen Blood Narrative Performed At Demolitionist ID - NTP [facility] Performing Organization Address [facility]/Zipcode Phone Number [address] [address] CENTER Iron, TIBC, % sat. (without ferritin) (12/22/2019 8:07 AM CDT) Iron 147.0 40.0 - 160.0 ug/dL [facility] TIBC 93 (L) 250 - 450 ug/dL [facility] Iron % Saturation 158 (H) 20 - 55 % [facility] Specimen Blood Narrative Performed At Demolitionist ID - NTP [facility] Performing Organization Address [facility] Phone Number [address] [address] [place] Bilirubin, indirect (12/22/2019 8:07 AM CDT) Bilirubin, Indirect 3.3 (H) 0.0 - 1.1 mg/dL [facility] Specimen Blood Performing Organization Address [facility] Phone Number [address] [address] [place] Lactic acid, venous (12/22/2019 8:07 AM CDT) Lactate, Venous 1.65Comment: Specimen 0.50 - 2.20 mmol/L [facility] slightly hemolyzed [facility] Specimen Blood Narrative Performed At Demolitionist ID - ROMERO F [facility] Specimen moderately icteric Performing Organization Address [facility] Phone Number [address] [address] [place] Reticulocyte count (12/22/2019 8:07 AM CDT)Only the most recent of5 results within the time period is included. % Retic >30.0 (H) 0.5 - 1.7 % [facility] Specimen Blood Narrative Performed At Demolitionist ID - [id number] [facility] Performing Organization Address [facility] Phone Number [address] [address] CENTER T4, free (12/22/2019 8:07 AM CDT) Free T4 0.85 0.70 - 1.48 ng/dL [facility] Specimen Blood Narrative Performed At Demolitionist ID - [place] [facility] Performing Organization Address City/[facility]/Zipcode Phone Number [address] [address] CENTER Lipase (12/22/2019 8:07 AM CDT) Lipase 13 8 - 78 U/L [facility] Specimen Blood Narrative Performed At Demolitionist ID - [facility] Specimen moderately icteric Performing Organization Address [facility] Phone Number [address] [address] CENTER Lactate dehydrogenase (LDH) (12/22/2019 8:07 AM CDT) LDH 2,132 (H)Comment: Specimen 125 - 220 U/L [facility] slightly hemolyzed [facility] Specimen Blood Narrative Performed At Demolitionist ID - [facility] Performing Organization Address [facility] Phone Number [address] [address] CENTER Haptoglobin (12/22/2019 8:07 AM CDT) Haptoglobin <8 (L) 14 - 258 mg/dL [facility] Specimen Blood Narrative Performed At Demolitionist ID - [facility] Performing Organization Address [facility] Phone Number [address] [address] CENTER Ferritin (12/22/2019 8:07 AM CDT)Only the most recent of2 resultswithin the time period is included. Ferritin >44566.00 (H) 5.00 - 275.00 ng/mL [facility] Specimen Blood Narrative Performed At Demolitionist ID - [facility] Performing Organization Address [facility] Phone Number [address] [address] CENTER Bilirubin, direct (12/22/2019 8:07 AM CDT) Bilirubin, Direct 2.7 (H)Comment: Specimen 0.1 - 0.5 mg/dL [facility] slightly hemolyzed [facility] Specimen Blood Narrative Performed At Demolitionist ID - [facility] Performing Organization Address [facility]/Zipcode Phone Number [address] [address] CENTER Amylase (12/22/2019 8:07 AM CDT) Amylase 20 (L)Comment: Specimen 25 - 125 U/L [facility] slightly hemolyzed [facility] Specimen Blood Narrative Performed At Demolitionist ID - [facility] Specimen moderately icteric Performing Organization Address City/[facility] Phone Number [address] [address] CENTER Comprehensive metabolic panel (12/22/2019 8:07 AM CDT) Protein, Total 9.2 (H)Comment: Specimen 6.0 - 8.3 gm/dL [facility] slightly hemolyzed [facility] Albumin 3.1 (L)Comment: Specimen 3.5 - 5.0 g/dL [facility] slightly hemolyzed [facility] Alkaline Phosphatase 162 (H) 40 - 150 U/L [facility] Total Bilirubin 6.0 (H)Comment: Specimen 0.2 - 1.2 mg/dL [facility] slightly hemolyzed [facility] Sodium 135 (L) 136 - 145 meq/L [facility] Potassium 4.9Comment: Specimen 3.5 - 5.1 meq/L [facility] slightly hemolyzed [facility] Chloride 109 (H) 98 - 107 meq/L [facility] CO2 17 (L) 22 - 29 meq/L [facility] BUN 46 (H) 7 - 21 mg/dL [facility]TH [facility] ER Creatinine 1.32 (H)Comment: 0.57 - 1.25 mg/dL [facility] Specimen slightly [facility] hemolyzed Glucose 131 (H) 70 - 105 mg/dL [facility] Calcium 8.3 (L) 8.4 - 10.2 mg/dL COUNT INCLUDES THE [facility] AST 648 (H)Comment: Specimen 5 - 34 U/L [facility] slightly hemolyzed [facility] ALT 188 (H)Comment: Specimen 6 - 55 U/L [facility] slightly hemolyzed [facility] EGFR 54Comment: ESTIMATED GFR mL/min/1.73 sq m [facility] IS NOT ACCURATE [facility] CREAT[facility] CLEARANCE IN PREDICTING GLOMERULAR FILTRATION RATE. ESTIMATED GFR IS NOT APPLICABLE FOR DIALYSIS PATIENTS. Specimen Blood Narrative Performed At Demolitionist ID - [place] [facility] Specimen moderately icteric Performing Organization Address City/State/Zipcode Phone Number [facility] [address] [place] [address] CENTER SARS-CoV2/RT-PCR ([facility] Ref Labs) (12/22/2019 4:10 AM CDT) SARS-COV2/RT-PCR Not Detected Not Detected, Negative [facility] SARS-COV-2 PERFORMING LAB [facility] Specimen Other Narrative Performed At Negative results do not preclude SARS-CoV-2 [facility] infection and should not [...] the Act. Fact Sheet for Healthcare Providers: https://www.[employer]/Documents/Xpert%20Xpre ss%20SARS%20CoV-2/Fact%20Sheets/3023802%20SAR S-COV-2%20HEALTHCARE%20PROVIDERS%20FACT%20SHEE T.pdf Fact Sheet for Healthcare Patients: https://www.[employer]/Documents/Xpert%20Xpre ss%20SARS%20CoV-2/Fact%20Sheets/3023801%20SAR S-COV-2%20PATIENT%20FACT%20SHEET.pdf Performing Laboratory: [address] [place] [address] Performing Organization Address City/[facility]/Zipcode Phone Number [address] [address] [place] EKG-SCANNED (10/02/2019 10:52 AM STATION MECHANIC HELPER)Only the most recent of2 resultswithin the time period is included. Narrative Performed At This result has an attachment that is no t available. Catheter Tip Culture (09/25/2019 11:21 AM STATION MECHANIC HELPER) Result No growth [facility] Specimen Other Performing Organization Address City/State/Zipcode Phone Number [address] [address] [place] IR Port Removal (09/25/2019 11:20 AM STATION MECHANIC HELPER) Specimen Narrative Performed At Addendum Begins GE RIS REPORT STATUS:A Addendum: ANESTHESIA: Conscious sedation was provi ded by radiology nursing using constant hemodynamic monitoring fo r 30 minutes. Versed IV 0.5 mg, Dilaudid 2 mg. Signed: Carlos Rey MD Report Verified Date/Time:09/25/2019 11:46:52 Reading Location: [place] [address] Angio Body Reading Room Addendum Ends FINAL REPORT PROCEDURE: Venous Port Removal CLINICAL HISTORY: infected BEAD PICKER: Carlos Rey DO, JD ANESTHESIA: Local lidocaine. [...] MD Report Verified Date/Time:09/25/2019 11:37:20 Reading Location: [place] [address] Angio Body Reading Room Procedure Note Interface, External Ris In - 09/25/2019 11:49 AM STATION MECHANIC HELPER Addendum Begins REPORT STATUS:A Addendum: ANESTHESIA: Conscious sedation was provi ded by radiology nursing using constant hemodynamic monitoring fo r 30 minutes. Versed IV 0.5 mg, Dilaudid 2 mg. Signed: Carlos Rey MD Report Verified Date/Time: 09/25/2019 1 1:46:52 Reading Location: [place] [address] Angio Body Reading Room Addendum Ends FINAL REPORT PROCEDURE: Venous Port Removal CLINICAL HISTORY: infected BEAD PICKER: Carlos Rey DO, JD ANESTHESIA: Local lidocaine. [...] Verified Date/Time: 09/25/2019 1 1:37:20 Reading Location: [place] [address] Angio Body Reading Room Performing Organization Address City/State/Zipcode Phone Number GE RIS PT/aPTT (09/25/2019 5:14 AM STATION MECHANIC HELPER) Protime 14.4 (H) 11.9 - 14.2 seconds [facility] INR 1.2 <=5.9 [facility] PTT 31.4 22.5 - 36.0 seconds [facility] Specimen Blood Narrative Performed At Effective 01/15/2019: PT Reference Range [facility] Change New: 11.9-14.2Previous: 11.7-14.7 RECOMMENDED COUMADIN/WARFARIN INR THERAPY RANGES STANDARD DOSE: 2.0-3.0Includes: PROPHYLAXIS for venous thrombosis, systemic embolization; TREATMENT for venous thrombosis and/or pulmonary embolus. HIGH RISK: Target INR is 2.5-3.5 for patients wiht mechanical heart valves. Performing Organization Address City/State/Zipcode Phone Number [facility] [address] [place], [place] [phone] [place] Screen, urine (09/24/2019 10:59 PM STATION MECHANIC HELPER)Only the most recent of2 resultswithin the time period is included. Preg Test, Ur Negative [facility] Specimen Urine Performing Organization Address City/[facility]/Zipcode Phone Number [facility] [address] [place] [address] [place] Manual Differential (07/20/2019 9:31 AM STATION MECHANIC HELPER)Only the most recent of12 results within the [...] LABOR ATORY Specimen Blood Performing Organization Address City/[facility]/Zipcode Phone Number [email or web address] [address] [place], [place] [address] [place], manual (07/19/2019 10:34 AM STATION MECHANIC HELPER)Only the most recent of2 resultswithin the time period is included. ABO Grouping OComment: Testing performed by: [facility], [address] [place] [id number] Rh Factor POSComment: Testing performed [facility] by: [facility], [address] [place] [id number] Specimen Blood Performing Organization Address City/[facility]/Zipcode Phone Number [facility] [address] [place], [place] [phone] [facility] Immature reticulocyte fraction (07/14/2019 5:07 AM STATION MECHANIC HELPER)Only the most recent of2 resultswithin the time period is included. Immature Reticulocyte 25.300 (H)Comment: 3.000 - 15.900 % [facility] Fraction [facility] ER % Retic 8.2 (H) 0.5 - 1.7 % [facility] ER Specimen Blood Performing Organization Address City/[facility] Phone Number [address] [phone] CENTER Prepare Leuko-Red & Irrad RBC (07/12/2019 11:55 PM STATION MECHANIC HELPER)Only the most recent of2 resultswithin the time period is included. Unit ABO O Pos SAFETRACE TX UNIT NUMBER [id number] SAFETRACE TX Status TX_TIMEINCHART SAFETRACE TX Blood Bank Product RED BLOOD CELLS SAFETRACE TX PRODUCT CODE [id number] SAFETRACE TX CROSSMATCH COMPATIBLE SAFETRACE TX Specimen Other Performing Organization Address City/[facility] Phone Number SAFETRACE TX Transfuse Leuko-Red & Irrad RBC (07/10/2019 5:46 AM STATION MECHANIC HELPER)Only the most recent of2 resultswithin the time period is included.Potassium (07/09/2019 4:58 AM STATION MECHANIC HELPER) Potassium 5.0 3.6 - 5.5 meq/L [facility] Specimen Blood Performing Organization Address City/[facility]/Zipcode Phone Number [facility] [address] [place], [place] [address] ECG/EKG Interpretation (07/09/2019 12:11 AM STATION MECHANIC HELPER) Narrative Performed At [facility], DO 10/20/2019 12 :43 AM ECG/EKG [...] immediate complications CRITICAL CARE (07/09/2019 12:11 AM STATION MECHANIC HELPER) Narrative Performed At EmileLencho her III, 10/20/2019 [...] old charts. Urinalysis w/Microscopic (07/08/2019 7:16 PM STATION MECHANIC HELPER) Color, UA Yellow [facility] Clarity, UA Clear [facility] Specific [place], UA 1.010 1.001 - 1.035 [facility] [...] City/State/Zipcode Phone Number [facility] [address] [place], [place] [address] after 03/22/2019 Insurance Payer Benefit Plan / Subscriber ID Type Phone Address Group [employer] UNITED MEDICARE xxxxxxxxx - MEDICARE MGD HMO CARE MEDICAID - [facility] COMM STAR xxxxxxxxx Medicaid MEDICAID MGD CARE PLAN Contracted CDC REVIEW CDC REVIEW xxxxxxxx [address] [place] [place] [address] Advance Directives For more information, please contact:[address] [phone] Code Status Date Activated Date Inactivated Comments [...]
--- OUTSIDE RECORDS SUMMARY | 2020-03-22 13:32 | XMS REPORT | Continuity of Care Document ---
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) Transient ischemic Resolved Problem 09/13/2014 [facility] attack (disorder) Ks dical [place] HB-SS DISEASE W Active [facility] [place] CRISIS [facility] Medications Medication Details Route Status Patient Ordering Order Source Instructions Provider Date 12 HR Oxymorphone 30 mg = 1 tab, Active [facility] Hydrochloride 30 PO, Q12H, 0 2014 [facility] ical MG Extended Refill(s) Center Release Tablet [Opana] Lovenox Notes: (Same No Longer [facility] as: Lovenox) Active [address] [place] [address] Promethazine Notes: Do not No Longer [facility] give IV push. Active 2014 [facility] (Same as: [place] Phenergan) Hydromorphone Notes: (Same No Longer [facility] as: Dilaudid) Active 2014 Medical conc = 0.5 Center mg/ml Hydromorphone DIRECTOR ENERGY Dose: ;Delay: ;Basal: Naloxone Notes: Same as No Longer [place] as Narcan Active 2014 [facility] Naproxen 500 mg, 1 tab, No Longer [place] as Route: PO, Drug Active 2014 Medical form: TAB, BID, Center Dosing Weight 68.182, kg, Start date: 09/09/14 17:00:00, Duration: 30 day, Stop date: 10/09/14 9:00:00 Acetaminophen Notes: Do not No Longer [facility] exceed 4 Active 2014 Medical gm/day. [...] [place] Opana [place] Active 2014 [facility] oxyMORPHone 30 mg, Route: [place]active [place] extended release PO, Q12H, 2014 Medic al Dosing Weight Center 70, kg, Start date: 09/09/14 9:00:00, Duration: 30 day, Stop date: 10/08/14 21:00:00 Docusate Notes: (Same No Longer [place] as: Colace) (Do Active 2014 [facility] Not Crush) Center Dilaudid Notes: Same as: No Longer [place] Dilaudid Active 2014 [facility] normal saline 1,000 mL, Rate: Inactive [place] [...] 2014 Medic al Injectable Over: 1 hr, [place] Solution Route: IV, 1,000, Drug form: INJ, ONCE, Priority: STAT, Dosing Weight 70 kg, Start date: 09/09/14 5:08:00, Duration: 1 doses or times, Stop date: 09/09/14 5:08:00 Dilaudid Notes: Same as: Inactive [place] as Dilaudid 2014 [facility]: Do not Inactive [place] give IV push. 2014 Medical (Same as: [place] Phenergan) Benadryl 25 mg, Route: Inactive [place] PO, Drug form: 2015 Medical CAP, ONCE, Center Dosing Weight 70, kg, Priority: STAT, Start date: 09/09/14 3:43:00, Stop date: 09/09/14 3:43:00 Dilaudid 2 mg, Route: Inactive [place] IV, ONCE, 2014 Medical Dosing Weight Center 70, kg, Start date: 09/09/14 3:43:00, Stop date: 09/09/14 3:43:00 Diphenhydramine 1 appl, Route: Inactive [place] Hydrochloride 20 TOP, ONCE, Drug 2014 Medical MG/ML Topical form: [facility], [place] Cream [Benadryl] Start date: 09/09/14 3:43:00, Stop [...] 2:13:00 Benadryl 25 mg, Route: [place] PO, ONCE, Active 2014 Medical Dosing Weight Center 70, kg, Start date: 09/08/14 23:41:00, Stop date: 09/08/14 23:41:00 Phenergan 25 mg, Route: No Longer [place] as PO, ONCE, Active 2014 Medical Dosing Weight Center 70, kg, Priority: STAT, Start date: 09/08/14 23:41:00, Stop date: 09/08/14 23:41:00 Hydromorphone 2 mg, Route: No Longer [facility] IVP, ONCE, Active 2014 Medical Dosing Weight Center 70, kg, Priority: STAT, Start date: 09/08/14 23:41:00, Stop date: 09/08/14 23:41:00 Saline Flush 0.9% Notes: Same as: No Longer 08/21 [place] [facility] Posiflush Active [address] [place] [address] Allergies, Adverse Reactions, Alerts Substance Category Reaction Severity Reaction Status Date Comments S ource type Reported morphine Assertion Drug Active [facility] Stadol Assertion Drug Active [facility] Toradol Assertion Drug Active [facility] as [facility] traMADol Assertion Drug Active [facility] Zofran Assertion Drug Active [facility] Immunizations No Data Provided for This Section Results Order Name Results Value Reference Date Interpretation Comments Blanca rce Range CHEM PANEL LDH 507 98 - 192 09/[address] ELECTROLYTE AGAP 10.8 10.0 - 09/11 [facility] S 20.0 [facility] ELECTROLYTE Calcium Lvl 8.4 8.5 - 10.5 09/11 [facility] /2014 [facility] ELECTROLYTE CO2 27 24 - 32 09/11 [facility] S /2014 [facility] ELECTROLYTE Chloride Lvl 108 95 - 109 09/11 [facility] S /2014 [facility] ELECTROLYTE eGFR 130 09/11 <sup>3</sup>R [place] as esult Medical Comment: The Center eGFR is [...] ELECTROLYTE BUN 4 7 - 22 09/11 [facility] ELECTROLYTE Glucose Lvl 82 70 - 99 09/11 <sup>6</sup>I [facility] nterpretive Medical Data: Adult Center reference range values reflect the clinical guidelines
of the [place] [employer]. ELECTROLYTE Sodium Lvl 142 135 - 145 09/[address] [facility] s S [facility] ELECTROLYTE Creatinine 0.7 0.5 - 1.4 09/[address] [facility] s S [facility] ELECTROLYTE Potassium 3.8 3.5 - 5.1 09/11 [facility] S l [facility] HEMATOLOGY Retic Auto 16.5 0.5 - 1.5 09/11 [facility] HEMATOLOGY RDW 25.5 11.5 - 09/11 [place] 14.5 [facility] HEMATOLOGY MPV 8.6 7.4 - 10.4 09/11 [facility] HEMATOLOGY Platelet 213 133 - 450 09/11 [facility] HEMATOLOGY Hct 19.8 36.0 - 09/11 [place] 48.0 [facility] HEMATOLOGY Hgb 6.7 12.0 - 09/11 <sup>9</sup>R [facility] s 16.0 esult Medical Comment: Center Critical Result(s) called to Lexi Hendrix at 09/11/2014 03:23 by SUSHMA. Read back OK. HEMATOLOGY MCV 97.9 80.0 - 09/11 [place] 98.0 [facility] HEMATOLOGY MCHC 34.0 32.0 - 09/11 [place] 36.0 [facility] HEMATOLOGY MCH 33.3 27.0 - 09/11 [place] 31.0 [facility] HEMATOLOGY WBC X 10x3 14.1 3.7 - 10.4 09/11 [place] /2014 [facility] HEMATOLOGY RBC X 10x6 2.02 4.20 - 09/11 [place] 5.40 /2014 [facility] BLOOD BANK Antibody Positive 1 09/10 <sup>1</sup>R [facility] RESULTS Scrn (09/10/14 8:01 AM) /2014 esult Medica l Comment: Center 09/10/2014 09:24 [id number]
"Significant Findings of Positive Antibody Screen called to Magan Stinson at 0920 by SI. Read Back OK" BLOOD BANK ABO/Rh O POS 09/10 [place] RESULTS /2014 [facility] BLOOD BANK Path MEGHAN This 09/10 [facility] RESULTS patient Medical a positive [place] Direct Antiglobuli n Test (MEGHAN) with IgG [...] concur with the resident's interpretat ion. CPT: 12435-ZS BLOOD BANK Path AB Current 09/10 [place] [...] concur with the resident's interpretat ion. CPT: 07479-IA BLOOD BANK HX Antigen Le(a) neg 09/10 [place] RESULTS /2014 [facility] Center BLOOD BANK HX Antigen Jk(b) pos 09/10 RESULTS /2014 [facility] Center BLOOD BANK HX Antigen K neg 09/10 RESULTS [facility] BLOOD BANK HX Antigen Jk(a) pos 09/10 RESULTS /2014 [facility] Center BLOOD BANK HX Antigen Fy(b) neg 09/10 RESULTS [facility] Center BLOOD BANK HX Antigen Fy(a) pos 09/10 RESULTS /2014 [facility] Center BLOOD BANK HX Antigen C pos 09/10 [place] RESULTS /2014 [facility] Center BLOOD BANK HX Antigen E neg 09/10 [place] RESULTS /2014 [facility] Center BLOOD BANK HX Antigen Cw neg 09/10 [place] RESULTS /2014 [facility] Center BLOOD BANK HX Antigen M pos 09/10 RESULTS /2014 [facility] Center BLOOD BANK HX Antigen s pos 09/10 RESULTS /2014 [facility] Center BLOOD BANK HX Antigen c neg 09/10 RESULTS /2014 [facility] Center BLOOD BANK HX Antigen N neg 09/10 RESULTS [facility] Center BLOOD BANK HX Antigen P1 pos 09/10 RESULTS /2014 [facility] Center BLOOD BANK HX Antigen S neg 09/10 [place] RESULTS /2014 [facility] BLOOD BANK HX Antigen Le(b) neg 09/10 [place] RESULTS /2014 [facility] BLOOD BANK HISTORICAL Anti-S 09/10 [place] RESULTS AB [facility] BLOOD BANK HISTORICAL Anti-Bg(a) 09/10 [place] RES[place] [facility] BLOOD BANK HISTORICAL Anti-Cw 09/10 [place] RESULTS AB [facility] BLOOD BANK C3 Int Negative 09/10 [place] RESULTS (09/10/14 8:01 AM) /2014 [facility] BLOOD BANK [place] Int See Note 09/10 <sup>2</sup>R [place] RESULTS esult Medical Comment: Center 09/10/2014 12:56 [email or web address]
[place] non reactive with all cells tested. BLOOD BANK MEGHAN Gel Int Positive 09/10 [place] RESULTS (09/10/14 8:01 AM) /2014 [facility] BLOOD BANK AB Int Anti-E 09/10 [place] RESULTS [facility] BLOOD BANK AB Int Anti-c 09/10 [place] RESULTS [facility] HEMATOLOGY Hgb 6.3 12.0 - 09/10 <sup>10</sup> [place] 16.0 Result Medical Comment: Center Critical Result(s) called to JB LONDONO at _09/10/2014 07:45 byMK_. Read back OK. CHEM PANEL LDH 496 98 - 192 09/10 /2014 [facility] ELECTROLYTE AGAP 11.8 10.0 - 09/10 [place] S 20.0 [facility] ELECTROLYTE eGFR 137 09/10 <sup>4</sup>R [place] as [...] 8.3 8.5 - 10.5 09/10 [place] [facility] ELECTROLYTE Chloride Lvl 113 95 - 109 09/10 [facility] as [facility] ELECTROLYTE Sodium Lvl 144 135 - [address] [facility] s [facility] ELECTROLYTE Glucose Lvl 81 70 - 99 09/10 <sup>7</sup>I [facility] nterpretive Medical Data: Adult Center reference range values reflect the clinical guidelines
of the [place] [employer]. ELECTROLYTE BUN 4 7 - 22 09/10 [facility] ELECTROLYTE Creatinine 0.6 0.5 - 1.4 09/10 [facility] S [facility] ELECTROLYTE CO2 23 24 - 32 09/10 [facility] ELECTROLYTE Potassium 3.8 3.5 - 5.1 09/10 [facility] HEMATOLOGY Hgb 6.2 12.0 - 09/10 <sup>11</sup> [facility] s 16.0 /2014 Result Medical Comment: Center Critical Result(s) called to Amy Fraga at 09/10/2014 06:07 by negrita. Read back OK. HEMATOLOGY WBC 15.9 3.7 - 10.4 09/10 [facility] HEMATOLOGY RBC 1.85 4.20 - 09/10 [place] 5.40 /2014 [facility] HEMATOLOGY Hct 18.2 36.0 - 09/10 [place] 48.0 [facility] HEMATOLOGY MCV 98.3 80.0 - 09/10 [place] 98.0 /2014 [facility] HEMATOLOGY RDW 25.4 11.5 - 09/10 [place] 14.5 /2014 [facility] HEMATOLOGY Platelet 190 133 - 450 09/10 [facility] HEMATOLOGY MCH 33.6 27.0 - 09/10 [place] 31.0 [facility] HEMATOLOGY MCHC 34.2 32.0 - 09/10 [place] 36.0 /2014 [facility] HEMATOLOGY MPV 8.5 7.4 - 10.4 09/10 [facility] HEMATOLOGY Retic Auto 15.8 0.5 - 1.5 09/10 [facility] ELECTROLYTE AGAP 13.7 10.0 - 09/09 [facility] S 20.0 [facility] ELECTROLYTE eGFR 96 09/09 <sup>5</sup>R [facility] Medical Comment: The Center eGFR is calculated [...] 9.1 8.5 - 10.5 09/09 [place] [facility] ELECTROLYTE Potassium 3.7 3.5 - 5.1 09/09 [facility] S [facility] ELECTROLYTE Sodium Lvl 142 135 - 145 09/09 [facility] ELECTROLYTE Glucose Lvl 106 70 - 99 09/09 <sup>8</sup>I [facility] nterpretive Medical Data: Adult Center reference range values reflect the clinical guidelines
of the [place] [employer]. ELECTROLYTE Creatinine 0.9 0.5 - 1.4 09/09 [facility] S [facility] ELECTROLYTE BUN 6 7 - 22 09/09 [facility] ELECTROLYTE CO2 26 24 - 32 09/09 [facility] /2014 [facility] ELECTROLYTE Chloride Lvl 106 95 - 109 09/09 [facility] HEMATOLOGY Sickle Cell Slight 09/09 [facility] HEMATOLOGY Schistocyte 1-3 per HPF None Seen 09/09 [facility] (09/09/14 2:13 AM) /2014 [facility] HEMATOLOGY Tear Cell Slight 09/09 [facility] HEMATOLOGY Target Cell Moderate None Seen 09/09 [facility] *ABN* /2014 Medical (09/09/14 2:13 AM) Center HEMATOLOGY Polychrom Slight 09/09 [facility] HEMATOLOGY Plt Morph Normal 09/09 [place] (09/09/14 2:13 AM) /2014 Medica l [place] HEMATOLOGY Tot Cell Ct 100 09/09 [facility] HEMATOLOGY Bands 0.0 0.0 - 11.0 09/09 [facility] HEMATOLOGY Segs 49.0 45.0 - 09/09 [place] 75.0 [facility] HEMATOLOGY Macrocyte 1+ None Seen 09/09 [place] *ABN* /2014 Medical (09/09/14 2:13 AM) Center HEMATOLOGY Anisocyte 1+ None Seen 09/09 [place] *ABN* /2014 Medical (09/09/14 2:13 AM) Center HEMATOLOGY NRBC 2 09/09 [facility] HEMATOLOGY Atypical 0.0 <=0.0 % 09/09 [facility] Lymphs [facility] HEMATOLOGY Eosinophils 3.0 0.0 - 4.0 09/09 [place] [facility] HEMATOLOGY Monocytes 14.0 2.0 - 12.0 09/09 [facility] HEMATOLOGY Lymphocytes 34.0 20.0 - 09/09 [place] 40.0 [facility] HEMATOLOGY Eosinophils 0.6 0.0 - 0.5 09/09 [place] # /2014 [facility] HEMATOLOGY Monocytes # 2.7 0.0 - 0.8 09/09 [place] [facility] HEMATOLOGY Lymphocytes 6.5 1.0 - 5.5 09/09 [place] # /2014 [facility] HEMATOLOGY Segs-Bands # 9.3 1.5 - 8.1 09/09 [place] [facility] HEMATOLOGY Retic Auto 16.6 0.5 - 1.5 09/09 /2014 [facility] HEMATOLOGY MPV 8.3 7.4 - 10.4 09/09 /2014 [facility] HEMATOLOGY RDW 25.8 11.5 - 09/09 [place] 14.5 [facility] HEMATOLOGY MCHC 34.3 32.0 - 09/09 [place] 36.0 [facility] HEMATOLOGY Platelet 220 133 - 450 09/09 /2014 [facility] HEMATOLOGY MCV 99.8 80.0 - 09/09 [facility] [place] 98.0 /2014 [facility] HEMATOLOGY Hct 22.7 36.0 - 09/09 [facility] 48.0 /2014 [facility] HEMATOLOGY MCH 34.2 27.0 - 09/09 [facility] 31.0 /2014 [facility] HEMATOLOGY WBC 19.0 3.7 - 10.4 09/09 [facility] HEMATOLOGY RBC 2.28 4.20 - 09/09 [facility] 5.40 /2015 [facility] Center Pathology Reports No Data Provided for This Section Diagnostic Reports No Data Provided for This Section Consultation Notes No Data Provided for This Section Discharge Summaries No Data Provided for This Section History and Physicals No Data Provided for This Section Vital Signs Vital Sign Value Date Comments Source Respitory Rate 18 09/12/2014 [facility] Systolic (mm Hg) 120 09/12/2014 [facility] Heart Rate 80 09/12/2014 [facility] Diastolic (mm Hg) 80 09/12/2014 [facility] Temperature Oral (F) 98.0 F 09/12/2014 [facility] Diastolic (mm Hg) 82 09/11/2014 [facility] Respitory Rate 18 09/11/2014 [facility] Systolic (mm Hg) 132 09/11/2014 [facility] Heart Rate 82 09/11/2014 [facility] Temperature Oral (F) 98.4 F 09/11/2014 [facility] Respitory Rate 16 09/11/2014 [facility] Heart Rate 86 09/11/2014 [facility] Systolic (mm Hg) 120 09/11/2014 [facility] [place] [facility] dical Center Diastolic (mm Hg) 86 09/11/2014 [facility] Temperature Oral (F) 98.1 F 09/11/2014 [facility] Weight 70.591 09/10/2014 [facility] Weight 68.182 09/09/2014 [facility] BMI Calculated 26.63 09/09/2014 [facility] taryn [place] Height 160.02 cm 09/09/2014 [facility] Weight 70 09/09/2014 [facility] Height 160.02 cm 09/09/2014 [facility] BMI Calculated 27.34 09/09/2014 [facility] Encounters Location Location Encounter Encounter Reason Attending ADM DC Stat us Source Details Type Number For Provider Date Date Visit [facility] Inpatient [id number] Josiane 09/09 09/12 [facility] Roly Pj /2014 [facility] Procedures No Data Provided for This Section Assessment and Plan Assessment and Plan Date Source Extracted from:Title: Discharge Summary 09/12/2014 [facility] Author: Josiane Oliva MD Date: 09/12/14 [...] presented with pain crisis. She required dilaudid DIRECTOR ENERGY bolusdoses in addition to PO long acting narcotic medication and NSAID, Tylenol. She wa s given opana 20mg q12h, PRN oxycodone a nd Dilaudid DIRECTOR ENERGY 0.2mg bolus q 10min lockout. On day o discharge, she felt she could manage her pain with oral medication at home and wsa discharged. Procedures: none Consultations: none Discharge medications: see discharge medication reconciliation form Discharge condition: good Followup: with her footwear sales representative as outpatient Time spent on discharge: 40 minutes incl uding counseling with patient regarding her emotional hardships contributing to her pain The patient was examined by me on day of discharge. Extracted from:Title: General Admission H&P * Author: Ha Mann MD Date: 09/09/14 Patient: RODRIGO BERG MR N: [id number] Age: 34 years Sex: Female : 1980 [...] Patient denies any triggers. She saw her footwear sales representative sunday: white c ount 19, hg 7.4 [...] Medical History: Resolved CVA - Cerebrovascular accident ([id number]): Resolved. TIA ([id number]): Resolved. Sickle cell anemia ([id number]): Resolved. Aplastic anemia ([id number]): Resolved. Family History: No family history items [...] d from last sunday office visit with footwear sales representative Dr. Guaman; xray negative; UA pending #acute pain: cont IV dialudid prn q3hrs, cont home oxy morphone ; cont IV fluids #h/o HTN: during sickle crisis, monitor BP regular diet Addendum by Ha Mann MD on 09/09/2014 06:24 correction: oxymorphone is 30mg q12. Plan of Care No Data Provided for This Section Social History Social History Date Source Social History TypeResponse 09/09/2014 [facility] Alcohol Use: Never Smoking Status Never smoker, Exposure to Tobacco Smoke None, Cigarette Smoking Last 365 Days No, Reg Smoking Cessation Counseling Yes Family History No Data Provided for This Section Advance Directives No Data Provided for This Section Functional Status No Data Provided for This Section
--- OUTSIDE RECORDS SUMMARY | 2020-03-22 13:54 | XMS REPORT | Continuity of Care Document ---
:1980 Author Organization [facility] t Address [facility] [place] [address] Care Team Providers Name Role Phone Carlos Ambriz MD Primary Care Physician Thuy Jay MD Attending [...] Pj Admitting Clinician Payers Payer Name Policy Policy Number Effective Expiration Source Type Date Date [facility] - xxxxxxxxx [facility] CAREUNITED - Medical MEDICARE HMOxxxxxxxxx Estephania ter MEDICAID - MEDICAID MGD xxxxxxxxx [facility] CARED [facility] ST[facility] - Me dical PLANxxxxxxxxxMedicaid Estephania 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 1-19 [facility] - crisis crisis 00:00: Medical 00 Center Sickle Sickle Disease Active 2018-08 [place] cell [...] CELL 1-20 12:43:00 l CRISIS SICKLE 00:00: Roly CELL 00 CRISIS Active 09/08/2014 [facility] Iron Iron Disease Active [facility] overload overload 4-12 [facility] - due to due to 00:00: Medical repeated repeated 00 Center red blood red blood cell cell transfusio transfusio ns ns History of History of Disease Active [facility] drug abuse drug abuse 4-12 Kelley kes - 00:00: Medical 00 Center Cough Cough Disease Active [facility] 4[facility] - 00:00: Medical 00 Center Final: Problem 2014-09-13 Memor ia 13:02:44 l Final: [place] 09/13/2014 [facility] Aplastic Problem Resolve 2014-09-13 Me moria anemia d 13:02:44 l (disorder) Aplastic He rmann anemia (disorder) Resolved Problem 09/13/2014 [facility] Cerebrovas Problem Resolve 2014-09-13 Memoria cular d 13:02:44 l accident Roly (disorder) Cerebrovas cular accident (disorder) Resolved Problem 09/13/2014 [facility] 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 13:02:44 l 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) Resolved Problem 09/13/2014 [facility] Transient Problem Resolve 2014-09-13 M emoria ischemic d 13:02:44 l attack Roly (disorder) Transient ischemic attack (disorder) Resolved Problem 09/13/2014 [facility] HB-SS Diagnosis Active 2016-10-19 Mem oria DISEASE W 12:43:00 l CRISIS HB-SS Roly DISEASE W CRISIS Active [facility] Allergies, Adverse Reactions, Alerts Allergy Allergy Status [...] Center from 2017 Morphine Propensi Active Itching 2018- [place] ty to 0-30 Methodi adverse 00:00: st reaction 00 s to drug Dexchlor Propensi Active Unknown 2018-08 [place] pheniram ty to Reaction 0-30 Method i -Phenyle adverse 00:00: st phrine reaction 00 s to drug Tramadol Propensi Active Unknown 2018-08 [place] to Reaction 0-30 Methodi adverse 00:00: st reaction 00 s to drug Trazodon Propensi Active Unknown 2018- [place] e ty to Reaction 0-30 [...] 00 Center s fentanyl DA Active SV 2019-0 [facility] 4-12 Clear 00:00: [place] 00 [facility] morphine DA Active SV 2018-0 [facility] 4-11 Clear 00:00: [place] 00 [facility] butorpha DA Active U 2018-0 [facility] nol 4-11 Clear 00:00: [place] 00 [facility] metoclop DA Active SV 2019-0 [facility] ramide 4-11 Clear 00:00: [place] 00 [facility] ketorola DA Active SV 2019-0 [facility] c 4-11 Clear 00:00: [place] 00 [facility] TRAZADON DA Active SV 2018-0 [facility] E 4-11 Clear 00:00: [place] 00 [facility] Cpm-Pe-P Propensi Active Other (See seizure [facility] se-Atrop ty to Comments) 2-12 [facility] - ine-Hyos adverse 00:00: Medical c-Scop reaction 00 Center s Trazodon Propensi Active Other (See seizure [facility] e ty to Comments) 2-12 [facility] - adverse 00:00: Medical reaction 00 Center s Tramadol Drug Active Other (See Seizure [facility] Allergy Comments) 7 [facility] - 00:00: Medical 00 Center Morphine Drug Active Hives, seizures [facility] Allergy Itching, 4-10 [facility] - Other (See 00:00: Medica l Comments) 00 Center Butorpha Drug Active Other (See seizures [facility] nol Allergy Comments) 4-10 [facility] - Tartrate 00:00: Medical 00 [place] Ketorola Drug Active Other (See seizures [facility] c Allergy Comments) 4- [facility] - 00:00: Medical 00 [place] Ondanset Drug Active Other (See seizures [facility] santa Hcl Allergy Comments) 4-10 [facility] - (Pf) 00:00: Medical 00 [place] morphine morphine Active Memori a l Roly Stadol Stadol Active Memoria l [place] Toradol Toradol Active Memoria l [place] traMADol traMADol Active Memori a l [place]oly Zofran Zofran Active Memoria l [place] Family History Family Member Diagnosis Comments Start Date Stop Date Source Natural father Heart disease [facility] [employer] Natural father Heart disease [facility] Natural father Hypertension [facility] Natural mother Hypertension [facility] Social History Social Habit Start Date Stop Date Quantity Comments Source Sex Assigned At [facility] Alcohol Comment 2018-12-30 2018-12-30 very rare [facility] - 00:00:00 00:00:00 Medical [place] Social History 2014-09-09 2014-09-09 [facility] mone 14:14:38 14:14:38 Smoking Status Start Date Stop Date Source Never smoker [facility] Medications Ordered Filled Start Stop Current Ordering Indication Dosage Frequency Signature Comments Components Source Medication Medication Date Date Medication? Clinician (SIG) Name Name clonazePAM Yes 1mg [id number] Take [address] (KLONOPIN) 09-24 [id number] by mouth 3 [facility] - 1 MG tablet 21:45: 3D (three) Med ical 26 times Center daily. predniSONE 2018-08- No 20mg QD Take [address] (DELTASONE) 09-21 1202 by mouth Alissa es - 20 MG 09:34: 00:00 daily. Medical tablet 56 :00 Center mINOCYCLine 2018-08- No 100mg Q.5D Take [address] (MINOCIN,DY 2- 12-02 mg by [facility] - NACIN) 100 [...] 25mg Q.5D Take 25 mg [place] e 04 by mouth 2 Methodi (PHENERGAN) 14:41: (two) st 25 MG 54 times a tablet day as needed for nausea or vomiting. valsartan 2018-08 Yes 160mg Q.5D Take [address] (DIOVAN) 1-04 mg by Methodi 160 MG 14:41: mouth 2 st tablet 54 (two) times a day. folic acid 2018-08 Yes 1mg QD Take 1 mg [place] (FOLVITE) 1 104 by mouth Meth paulino MG tablet 14:41: [...] 24 hr tablet metoprolol 2018-08- No 25mg [id number] Take 25 mg [place] tartrate 0-30 10-30 [id number] by mouth 3 [facility] (LOPRESSOR) 21:17: 00:00 3D (three) st 25 mg 17 :00 times a tablet day. hydroxyurea 2018-08- No [id number] Take by [place] (HYDREA) 0-30 10-30 [id number] mouth 3 M ethodi 500 mg 21:17: [...] hours as needed for Nausea . ibuprofen 2019- No TK [address] [facility] (ADVIL,MOTR 4-26 12-02 Q 8 H WF Alissa es - IN) 600 MG 00:00: 00:00 PRN P. Medi taryn tablet 00 :00 Center promethazin 2019- No 25mg [facility] 9-15 12-02 [facility] - (PHENERGAN) 12:30: 09:34 Medic al injection 00 :56 Center 25 mg HYDROcodone Yes pain 2{tbl} Take [address] -acetaminop 1-15 tablets by Kelley haile laurent (NORCO 14:56: mouth Medica l 10-325) [...] Release Tablet [Opana] Lovenox No Notes: Memoria - (Same as: l 01:00: Lovenox) Promethazin No Notes: Do M emoria e 09-10 not give l 23:52: IV push. (Same as: Phenergan) Hydromorpho No Notes: Gentry aileen ne 09-10 (Same as: l 17:00: Dilaudid) conc = 0.5 mg/ml Hydromorph one [employer]SEM[employer]ER Dose: ;Delay: ;Basal: Naloxone No Notes: Memoria [...] 09-09 Rate: 50 l 16:12: ml/hr, Roly Infuse over: 20 hr, Route: IV, Dosing [...] 09-09 Route: PO, l release 15:00: Q12H, Roly 00 Dosing Weight 70, kg, Start date: 09/09/14 9:00:00, Duration: 30 day, Stop date: 10/08/14 21:00:00 Docusate No Notes: Memoria 09-09 (Same as: l 15:00: Colace) (Do Not Crush) Dilaudid No Notes: Memoria 09-09 Same as: l 11:14: Dilaudid [place] normal No 1,000 mL, Memori a saline [...] Route: PO, l Hydrocodone 11:11: Drug Form: [place] Bitartrate 00 TAB, 5 MG Oral Dosing [...] as: l 11:02: Dilaudid Roly 00 Phenergan No Notes: Do Mem oria 09-09 not give l 11:02: IV push. Roly (Same as: Phenergan) Benadryl 0 No 25 mg, Memoria 09-09 Route: PO, l 09:43: Drug form: Roly 00 CAP, ONCE, Dosing Weight 70, kg, Priority: STAT, Start date: 09/09/14 3:43:00, Stop date: 09/09/14 3:43:00 Dilaudid 0 No 2 mg, Memoria 09-09 Route: IV, l 09:43: ONCE, Roly 00 Dosing Weight 70, kg, Start date: 09/09/14 3:43:00, Stop date: 09/09/14 3:43:00 Diphenhydra 2014-0 No 1 appl, Mem oria mine 09-09 Route: l Hydrochlori 09:43: TOP, ONCE, Roly de 20 MG/ML 00 Drug form: Topical CRM, Start Cream date: [Benadryl] 09/09/14 3:43:00, Stop date: 09/09/14 3:43:00 Phenergan 0 No 12.5 mg, Gentry aileen 09-09 Route: l 08:13: IVPB, Roly 00 ONCE, Dosing Weight 70, kg, Priority: STAT, Start date: 09/09/14 2:13:00, Stop date: 09/09/14 2:13:00 Dilaudid 2015-0 No 2 mg, Memoria 09-09 Route: IV, l 08:13: ONCE, Dosing Weight 70, kg, Start date: 09/09/14 2:13:00, Stop date: 09/09/14 2:13:00 Benadryl 2015-0 No 25 mg, Memoria 09-09 Route: PO, [...] Source Heart rate 2019-12-28 13:15:00 73 /min [facility] Oxygen saturation in 2019-12-28 13:15:00 100 /min [facility] Arterial blood by Medical Ce nter Pulse oximetry Systolic blood 2019-12-28 12:26:00 137 mm[Hg] [facility] Diastolic blood 2019-12-28 12:26:00 84 mm[Hg] [facility] Body temperature 2019-12-28 12:26:00 36.33 Khadijah [facility] Respiratory rate 2019-12-28 12:26:00 18 /min [facility] Body weight Measured 2019-12-28 06:00:00 77.474 kg [facility] BMI 2019-12-28 06:00:00 30.26 kg/m2 [facility] Body height 2019-12-26 06:00:00 160 cm [facility] Oxygen saturation in 2019-06-23 13:08:00 98 /min [place] Arterial blood by Pulse oximetry Systolic blood 2019-06-23 11:56:20 126 mm[Hg] [place] [facility] pressure Diastolic blood 2019-06-23 11:56:20 87 mm[Hg] [place] [facility] pressure Heart rate 2019-06-23 11:56:20 85 /min [place] [facility] Body temperature 2019-06-23 11:56:20 36.72 Khadijah [place] [facility] Respiratory rate 2019-06-23 11:56:20 19 /min [place] [facility] Body weight 2019-06-23 03:08:38 76.658 kg [place] BMI 2019-06-23 03:08:38 29.94 kg/m2 [facility] Body height 2019-06-17 20:13:00 160 cm [facility] Respitory Rate 2014-09-12 02:32:00 Memori al [place] Systolic (mm Hg) 2014-09-12 02:32:00 Gentry rial Roly Heart Rate 2014-09-12 02:32:00 [facility] Diastolic (mm Hg) 2014-09-12 02:32:00 Mem orial Roly Temperature Oral (F) 2014-09-12 02:32:00 98.0 F [facility] [place] Diastolic (mm Hg) 2014-09-11 23:07:00 Mem orial [place] Respitory Rate 2014-09-11 23:07:00 Memori al [place] Systolic (mm Hg) 2014-09-11 23:07:00 Gentry rial Roly Heart Rate 2014-09-11 23:07:00 [facility] [place] Temperature Oral (F) 2014-09-11 23:07:00 98.4 F [facility] [place] Respitory Rate 2014-09-11 15:22:00 Memori al [place] Heart Rate 2014-09-11 15:22:00 [facility] [place] Systolic (mm Hg) 2014-09-11 15:22:00 Gentry rial [place] Diastolic (mm Hg) 2014-09-11 15:22:00 Mem orial Roly Temperature Oral (F) 2014-09-11 15:22:00 98.1 F [facility] [place] Weight 2014-09-10 14:38:00 [facility] [place] Weight 2014-09-09 14:02:00 [facility] [place] BMI Calculated 2014-09-09 14:02:00 Memori al [place] Height 2014-09-09 14:02:00 160.02 cm [facility] Weight 2014-09-09 02:51:00 [facility] [place] Height 2014-09-09 02:51:00 160.02 cm [facility] [place] BMI Calculated 2014-09-09 02:51:00 Memori al [place] Procedures Procedure Date / Time Performing Clinician Source Performed RHYTHM STRIP - SCAN 2019-12-30 12:00:10 Provider, [facility] BASIC METABOLIC PANEL (7) 2019-12-28 04:29:00 Rufus [facility] MAGNESIUM 2019-12-28 04:29:00 Rufus [facility] CBC W/PLT COUNT & AUTO 2019-12-28 04:29:[address] [facility] (CELLAVISION MANUAL DIFF) 2019-12-28 04:29:00 [facility] TRANSFUSION SERVICE 2019-12-27 17:51:12 Provider, [facility] REPORT SCAN [facility] BASIC METABOLIC PANEL (7) 2019-12-27 06:49:00 Rufus [facility] MAGNESIUM 2019-12-27 06:49:00 Rufus [facility] CBC W/PLT COUNT & AUTO 2019-12-27 06:49:00 [facility] (CELLAVISION MANUAL DIFF) 2019-12-27 06:49:00 Rufus [facility] VANCOMYCIN LEVEL, TROUGH 2019-12-26 08:19:00 Rufus [facility] PREPARE RBC 2019-12-26 04:32:00 Rufus [facility] BASIC METABOLIC PANEL (7) 2019-12-26 04:02:00 Ny Hooper [facility] MAGNESIUM 2019-12-26 04:02:00 Rufus [facility] CBC W/PLT COUNT & AUTO 2019-12-26 04:02:[address] [facility] (CELLAVISION MANUAL DIFF) 2019-12-26 04:02:00 [facility] BASIC METABOLIC PANEL (7) 2019-12-25 04:10:00 Ny Hooper [facility] MAGNESIUM 2019-12-25 04:10:00 Rufus [facility] HEPATIC FUNCTION PANEL 2019-12-25 04:10:00 Rufus [facility] PHOSPHORUS 2019-12-25 04:10:00 NilesJill paz [facility] CBC W/PLT COUNT & AUTO 2019-12-25 04:10:[address] [facility] (CELLAVISION MANUAL DIFF) 2019-12-25 04:10:00 Rufus [facility] TRANSFUSION SERVICE 2019-12-24 20:11:02 Provider, [facility] BASIC METABOLIC PANEL (7) 2019-12-24 04:48:00 [facility] 2019-12-24 04:48:00 Rufus [facility] HEPATIC FUNCTION PANEL 2019-12-24 04:48:00 Rufus [facility] PHOSPHORUS 2019-12-24 04:48:00 NilesJill [facility] CBC W/PLT COUNT & AUTO 2019-12-24 04:48:[address] [facility] (CELLAVISION MANUAL DIFF) 2019-12-24 04:48:00 Rufus [facility] PREPARE LEUKO-REDUCED RBC 2019-12-23 23:54:00 Rufus [facility] VANCOMYCIN LEVEL, TROUGH 2019-12-23 20:02:00 Joann Cobb Lily [facility] TRANSFUSION SERVICE 2019-12-23 18:00:47 ProviderLise [facility] SCAN [facility] CBC W/PLT COUNT & AUTO 2019-12-23 15:52:00 Eric Parada [facility] HEMOGLOBIN AND HEMATOCRIT 2019-12-23 07:50:00 Rufus [facility] HEMOGLOBIN AND HEMATOCRIT 2019-12-23 02:20:00 [facility] BASIC METABOLIC PANEL (7) 2019-12-23 02:20:00 [facility] MAGNESIUM 2019-12-23 02:20:00 [facility] HEPATIC FUNCTION PANEL 2019-12-23 02:20:00 [facility] PHOSPHORUS 2019-12-23 02:20:00 Jill Cage [facility] CBC W/PLT COUNT & AUTO 2019-12-23 02:20:00 [facility] (CELLAVISION MANUAL DIFF) 2019-12-23 02:20:00 Rufus [facility] TRANSFUSE LEUKO-REDUCED 2019-12-23 01:08:19 Niles [facility] BLOOD [facility] TROPONIN I 2019-12-22 21:21:00 David Santos [facility] HEMOGLOBIN AND HEMATOCRIT 2019-12-22 19:08:00 Rufus, [facility] TRANSFUSE LEUKO-REDUCED 2019-12-22 18:14:05 [facility] BLOOD [facility] TRANSFUSE LEUKO-REDUCED 2019-12-22 16:49:12 [facility] BLOOD CELLS [place] OSMOLALITY, URINE 2019-12-22 16:33:00 Rufus [facility] SODIUM, RANDOM URINE 2019-12-22 16:33:00 Rufus [facility] CREATININE, RANDOM URINE 2019-12-22 16:33:00 [facility] PROTEIN, RANDOM URINE 2019-12-22 16:33:00 [facility] POTASSIUM, RANDOM URINE 2019-12-22 16:33:00 [facility] ANTIBODY IDENTIFICATION 2019-12-22 15:56:00 Rufus, [facility] ECG 12-LEAD 2019-12-22 15:35:34 Unknown, Hl7 Doctor [facility] TROPONIN I 2019-12-22 14:02:00 David Santos [facility] BLOOD CULTURE 2019-12-22 14:01:00 Rufus [facility] US ABDOMEN LIMITED 2019-12-22 13:50:[address] [facility] URINE CULTURE 2019-12-22 11:12:00 Rufus, [facility] DRUG SCREEN, URINE, 2019-12-22 11:12:[address] [facility] LEGIONELLA URINE ANTIGEN 2019-12-22 11:12:00 [facility] URINALYSIS W/ REFLEX 2019-12-22 11:12:00 [facility] URINE CULTURE [place] RESPIRATORY PANEL [facility] 2019-12-22 10:57:00 Rufus [facility] RAPID INFLUENZA A&B 2019-12-22 10:57:00 [facility] MRSA SCREEN 2019-12-22 10:57:00 [facility] XR CHEST 1 VIEW 2019-12-22 09:06:00 Rufus [employer]/BEDSIDE Medical [place] PROTHROMBIN TIME/INR 2019-12-22 08:08:00 [facility] APTT 2019-12-22 08:08:00 Rufus, [facility] FIBRINOGEN 2019-12-22 08:08:00 [facility] BLOOD CULTURE 2019-12-22 08:07:00 [facility] HEMOGLOBIN AND HEMATOCRIT 2019-12-22 08:07:00 Rufus, [facility] COMPREHENSIVE METABOLIC 2019-12-22 08:07:00 [facility] MAGNESIUM 2019-12-22 08:07:00 [facility] IRON, TIBC, % SAT. 2019-12-22 08:07:00 [facility]OUT FERRITIN[facility] 2019-12-22 08:07:00 [facility] LACTATE DEHYDROGENASE 2019-12-22 08:07:00 [facility] (LDH) [place] RETICULOCYTE COUNT 2019-12-22 08:07:00 [facility] HAPTOGLOBIN 2019-12-22 08:07:00 [facility] VITAMIN B12 AND FOLATE 2019-12-22 08:07:00 [facility] TROPONIN I 2019-12-22 08:07:00 [facility] AMYLASE 2019-12-22 08:07:00 [facility] LIPASE 2019-12-22 08:07:00 [facility] LACTIC ACID, VENOUS 2019-12-22 08:07:00 [facility] PROCALCITONIN 2019-12-22 08:07:00 [facility] CORTISOL 2019-12-22 08:07:00 [facility] TSH/FREE T4 IF INDICATED 2019-12-22 08:07:00 [facility] T4, FREE 2019-12-22 08:07:00 Rufus, [facility] BILIRUBIN, DIRECT 2019-12-22 08:07:00 David [facility] BILIRUBIN, INDIRECT 2019-12-22 08:07:00 [facility] AND [facility]EN, 2019-12-22 08:07:00 [facility] [place] CBC W/PLT COUNT & AUTO 2019-12-22 08:07:00 Jefry Serrano [facility] (CELLAVISION MANUAL DIFF) 2019-12-22 08:07:00 Jefry Serrano [facility] ECG 12-LEAD 2019-12-22 06:57:18 Unknown, Hl7 Doctor [facility] SARS-COV2/RT-PCR ([facility] & 2019-12-22 04:10:00 [facility] REF LABS) Medical Center REPORT OF PROCEDURE - 2019-10-02 10:52:51 Provider, Default [facility] ENDOSCOPY SCAN Scanning [place] CBC W/PLT COUNT & AUTO 2019-09-30 04:19:00 Neal [facility] (CELLAVISION MANUAL DIFF) 2019-09-30 04:19:00 Neal [facility] CBC W/PLT COUNT & AUTO 2019-09-29 06:48:00 Neal [facility] (CELLAVISION MANUAL DIFF) 2019-09-29 06:48:00 Neal [facility] VANCOMYCIN LEVEL, TROUGH 2019-09-28 11:47:00 Angela Iraheta [facility] CBC W/PLT COUNT & AUTO 2019-09-28 05:01:00 Neal [facility] (CELLAVISION MANUAL DIFF) 2019-09-28 05:01:00 Neal [facility] TRANSFUSION SERVICE 2019-09-27 17:51:16 Provider, Default [facility] REPORT - SCAN Scanning [place] BASIC METABOLIC PANEL (7) 2019-09-27 04:54:00 Ahzach [facility] CBC W/PLT COUNT & AUTO 2019-09-27 04:54:00 [facility] (CELLAVISION MANUAL DIFF) 2019-09-27 04:54:00 [employer], [facility] PREPARE LEUKO-REDUCED RBC 2019-09-26 23:54:00 [facility], [facility] CBC W/PLT COUNT & AUTO 2019-09-26 07:42:00 [facility] (CELLAVISION MANUAL DIFF) 2019-09-26 07:42:00 [facility] BASIC METABOLIC PANEL (7) 2019-09-26 05:51:00 [facility] TRANSFUSE LEUKO-REDUCED 2019-09-25 18:34:30 [facility] RED BLOOD CELLS [place] TRANSFUSION SERVICE 2019-09-25 18:01:51 Provider [facility] REPORT - SCAN Scanning [place] CATHETER TIP CULTURE 2019-09-25 11:21:00 [facility] [employer], [facility] IR PORT REMOVAL 2019-09-25 11:20:00 [facility] [place] BASIC METABOLIC PANEL (7) 2019-09-25 09:23:00 [facility] CBC W/PLT COUNT & AUTO 2019-09-25 09:23:00 [employer], [facility] (CELLAVISION MANUAL DIFF) 2019-09-25 09:23:00 [facility] PT/APTT 2019-09-25 05:14:00 [facility] SCREEN, URINE 2019-09-24 22:59:00 [facility] ANTIBODY IDENTIFICATION 2019-09-24 18:22:00 [employer], [facility] CBC W/PLT COUNT & AUTO 2019-09-24 08:36:00 [facility] (CELLAVISION MANUAL DIFF) 2019-09-24 08:36:00 Lise serrano [facility] TYPE AND SCREEN, 2019-09-24 05:11:00 Lise De Jesus [facility] - AUTOMATED [facility] TRANSFUSION SERVICE 2019-07-22 17:54:59 Provider, [facility] REPORT - SCAN Scanning [place] RHYTHM STRIP - SCAN 2019-07-22 15:13:47 Provider, [facility] RHYTHM STRIP - SCAN 2019-07-22 15:13:45 Provider, [facility] RHYTHM STRIP - SCAN 2019-07-22 15:13:36 Provider, [facility] PREPARE LEUKO-REDUCED RBC 2019-07-21 23:54:00 [facility] TRANSFUSION SERVICE 2019-07-21 17:51:43 Provider, [facility] ANTIBODY IDENTIFICATION 2019-07-21 17:30:00 [facility] Sandra [facility] TRANSFUSION SERVICE 2019-07-20 17:51:45 Provider, [facility] RETICULOCYTE COUNT 2019-07-20 09:31:00 [facility] CBC W/PLT COUNT & AUTO 2019-07-20 09:31:00 [facility] (MANUAL DIFFERENTIAL) 2019-07-20 09:31:00 [facility] TRANSFUSE LEUKO-REDUCED 2019-07-20 06:07:37 [facility] RED BLOOD CELLS [place] PREPARE LEUKO-REDUCED RBC 2019-07-19 22:31:00 [facility] ABORH, MANUAL 2019-07-19 10:34:00 [facility] RETICULOCYTE COUNT 2019-07-19 06:11:00 [facility] CBC W/PLT COUNT & AUTO 2019-07-19 06:11:00 [facility] (MANUAL DIFFERENTIAL) 2019-07-19 06:11:00 [facility] CBC W/PLT COUNT & AUTO 2019-07-18 04:38:00 [facility] (MANUAL DIFFERENTIAL) 2019-07-18 04:38:00 [facility] BASIC METABOLIC PANEL (7) 2019-07-17 05:15:00 Bautista Swain [facility] CBC W/PLT COUNT & AUTO 2019-07-17 05:15:00 Bautista Swain [facility] (MANUAL DIFFERENTIAL) 2019-07-17 05:15:00 Bautista Swain [facility] BASIC METABOLIC PANEL (7) 2019-07-16 05:40:00 Bautista Swain [facility] CBC W/PLT COUNT & AUTO 2019-07-16 05:40:00 Bautista Swain [facility] (MANUAL DIFFERENTIAL) 2019-07-16 05:40:00 Bautista Swain [facility] BASIC METABOLIC PANEL (7) 2019-07-15 05:07:00 Bautista Swain [facility] FERRITIN 2019-07-15 05:07:00 [facility] RETICULOCYTE COUNT 2019-07-15 05:07:00 [facility] CBC W/PLT COUNT & AUTO 2019-07-15 05:07:00 Bautista Swain [facility] (MANUAL DIFFERENTIAL) 2019-07-15 05:07:00 Bautista Swain [facility] REPORT OF PROCEDURE - 2019-07-14 09:51:53 Provider [facility] ENDOSCOPY SCAN Scanning [place] IMMATURE RETICULOCYTE 2019-07-14 05:07:00 Bautista Swain [facility] BASIC METABOLIC PANEL (7) 2019-07-14 05:07:00 MorochoYelitza [facility] [place] W/PLT COUNT & AUTO 2019-07-14 05:07:00 Bautista Swain [facility] DIFFERENTIAL [facility] (MANUAL DIFFERENTIAL) 2019-07-14 05:07:00 Bautista Swain [facility] TRANSFUSION SERVICE 2019-07-13 18:02:43 Provider, [facility] IMMATURE RETICULOCYTE 2019-07-13 03:30:00 Bautista Swain [facility] BASIC METABOLIC PANEL (7) 2019-07-13 03:30:00 Bailee Yelitza [facility] [place] W/PLT COUNT & AUTO 2019-07-13 03:30:00 Bautista Swain [facility] DIFFERENTIAL [facility] (MANUAL DIFFERENTIAL) 2019-07-13 03:30:00 Bautista Swain [facility] PREPARE LEUKO-REDUCED AND 2019-07-12 23:55:00 Radha Sotomayor [facility] IRRADIATED RBC [facility] TRANSFUSION SERVICE 2019-07-12 18:05:44 Provider, [facility] CBC W/PLT COUNT & AUTO 2019-07-12 05:49:00 Radha Sotomayor [facility] (MANUAL DIFFERENTIAL) 2019-07-12 05:49:00 Radha Sotomayor [facility] PREPARE LEUKO-REDUCED AND 2019-07-11 23:54:00 Radha Sotomayor [facility] IRRADIATED RBC [place] TRANSFUSE LEUKO-REDUCED 2019-07-11 19:00:35 Radha Sotomayor [facility] RED BLOOD CELLS [facility] TRANSFUSION SERVICE 2019-07-11 18:06:07 Provider, [facility] BASIC METABOLIC PANEL (7) 2019-07-11 04:21:00 Radha Sotomayor [facility] CBC W/PLT COUNT & AUTO 2019-07-11 04:21:00 Radha Sotomayor [facility] (MANUAL DIFFERENTIAL) 2019-07-11 04:21:00 Radha Sotomayor [facility] TRANSFUSION SERVICE 2019-07-10 17:56:35 Provider, Default [facility] REPORT - SCAN Scanning [place] ANTIBODY IDENTIFICATION 2019-07-10 16:13:00 Radha Sotomayor [facility] CBC W/PLT COUNT & AUTO 2019-07-10 07:14:00 Radha Sotomayor [facility] (MANUAL DIFFERENTIAL) 2019-07-10 07:14:00 Radha Sotomayor [facility] BASIC METABOLIC PANEL (7) 2019-07-10 07:13:00 Radha Sotomayor [facility] TRANSFUSE LEUKO-REDUCED 2019-07-10 05:46:43 Radha Sotomayor [facility] AND IRRADIATED RED BLOOD [place] CELLS ABORH, MANUAL 2019-07-09 15:32:00 Radha Sotomayor [facility] CBC W/PLT COUNT & AUTO 2019-07-09 11:14:00 Radha Sotomayor [facility] POTASSIUM 2019-07-09 04:58:00 Emile, [facility] BASIC METABOLIC PANEL (7) 2019-07-09 04:57:00 Emile, Lencho [facility] MAGNESIUM 2019-07-09 04:57:00 Emile, [facility] CRITICAL CARE 2019-07-09 00:11:29 Emile, [facility] ED ECG INTERPRETATION 2019-07-09 00:11:29 Emile, [facility] BLOOD CULTURE 2019-07-08 20:58:00 Emile, [facility] XR CHEST 1 VIEW 2019-07-08 19:41:00 Emile, [facility] PORTABLE/BEDSIDE [facility] URINALYSIS W/ MICROSCOPIC 2019-07-08 19:16:00 Emile, Will [facility] SCREEN, URINE 2019-07-08 19:16:00 Emile, Will [facility] BASIC METABOLIC PANEL (7) 2019-07-08 18:44:00 Emile, Will [facility] TROPONIN I 2019-07-08 18:44:00 Emile, Will [facility] RETICULOCYTE COUNT 2019-07-08 18:44:00 Emile, Will [facility] MAGNESIUM 2019-07-08 18:44:00 Emile, Will [facility] CBC W/PLT COUNT & AUTO 2019-07-08 18:44:00 Emile, Will [facility] (MANUAL DIFFERENTIAL) 2019-07-08 18:44:00 Emile, Will [facility] BASIC METABOLIC PANEL 2019-06-23 06:12:00 Brigida Adhikari on [facility] Shabana CBC WITH PLATELET AND 2019-06-23 06:12:00 Brigida Adhikari on [facility] DIFFERENTIAL Shabana ESTIMATED GFR 2019-06-23 06:12:00 Manny Ambriz [facility] MANUAL DIFFERENTIAL 2019-06-23 06:12:00 Manny Ambriz n [facility] HC COMPLETE BLD COUNT 2019-06-22 06:10:00 Manny Ambriz [facility] W/AUTO DIFF SMEAR REVIEW 2019-06-22 06:10:00 Manny Ambriz [facility] HC COMPLETE BLD COUNT 2019-06-21 05:30:00 Manny Ambriz [facility] W/AUTO DIFF BASIC METABOLIC PANEL 2019-06-21 05:30:00 Manny Ambriz [facility] MAGNESIUM LEVEL 2019-06-21 05:30:00 Manny Ambriz [facility] ESTIMATED GFR 2019-06-21 05:30:00 Manny Ambriz [facility] SMEAR REVIEW 2019-06-21 05:30:00 Manny Ambriz [facility] BASIC METABOLIC PANEL 2019-06-20 06:00:00 Brigida Adhikari on [facility] Shabana HC COMPLETE BLD COUNT 2019-06-20 06:00:00 Brigida Adhikari on [facility] W/AUTO DIFF Shabana ESTIMATED GFR 2019-06-20 06:00:00 PbManny Den [facility] SMEAR REVIEW 2019-06-20 06:00:00 PbMannylindy [facility] POC GLUCOSE 2019-06-19 20:54:00 PbMannylauren [facility] POC GLUCOSE 2019-06-19 17:26:00 PbMannylindy [facility] POC GLUCOSE 2019-06-19 11:37:00 Pb Claudioyung Mileslauren [facility] POC GLUCOSE 2019-06-19 06:37:00 PbMannylindy [facility] US ABDOMEN COMPLETE 2019-06-19 06:15:00 Melissa Hernandez BASIC METABOLIC PANEL 2019-06-19 05:48:00 Brigida Adhikari on Antonia Donald CBC WITH PLATELET AND 2019-06-19 05:48:00 Brigida Adhikari on [facility]ism DIFFERENTIAL [place] IONIZED CALCIUM 2019-06-19 05:48:00 Charlee Norton MAGNESIUM LEVEL 2019-06-19 05:48:00 Charlee Norton [facility] ESTIMATED GFR 2019-06-19 05:48:00 Brigida Adhikari Met coby Donald MANUAL DIFFERENTIAL 2019-06-19 05:48:00 Manny Ambriz HEMOGLOBIN & HEMATOCRIT 2019-06-18 17:40:00 Melissa Hernandezist SMEAR REVIEW 2019-06-18 17:40:00 Melissa Hernandez TRANSFUSE RED BLOOD CELLS 2019-06-18 17:32:55 Brigida Adhikari TRANSFUSE RED BLOOD CELLS 2019-06-18 14:04:38 Brigida Adhikari XR SHOULDER 2+ VW RIGHT 2019-06-18 12:57:01 Melissa Hernandez BASIC METABOLIC PANEL 2019-06-18 05:10:00 ElevazoBrigida on [facility] [place] CBC WITH PLATELET AND 2019-06-18 05:10:00 ElevazoBrigida on [facility]ism DIFFERENTIAL [place] TROPONIN 2019-06-18 05:10:00 Cierra, Charleedarrius [place] [facility] IONIZED CALCIUM 2019-06-18 05:10:00 Cierra, Charlee Maghinay [place] [facility] MAGNESIUM LEVEL 2019-06-18 05:10:00 Cierra, Charlee [place]hin[place]es[place] [facility] ESTIMATED GFR 2019-06-18 05:10:00 Cierra, Charleedarrius [place] [facility] MANUAL DIFFERENTIAL 2019-06-18 05:10:00 CierraCharlee [facility]alism POC GLUCOSE 2019-06-18 04:52:00 Manny Ambriz [facility] POTASSIUM LEVEL 2019-06-18 01:10:00 CierraCharleeto n [facility]ism POC GLUCOSE 2019-06-18 01:08:00 Manny Ambriz [facility] BLOOD CULTURE, AEROBIC & 2019-06-17 23:30:00 Brigida Adhikari [facility]ism ANAEROBIC [place] TYPE AND SCREEN 2019-06-17 22:30:00 ElevPernell yuanjulián Den Met [facility]odist [place] CBC WITH PLATELET AND 2019-06-17 22:30:00 Brigida Adhikari on [facility]ism DIFFERENTIAL [place] MAGNESIUM LEVEL 2019-06-17 22:30:00 Elevkwabena Brigida [facility] [place] PHOSPHORUS LEVEL 2019-06-17 22:30:00 Elevazo Pernelledisonadithyaparesh [facility] [place] COMPREHENSIVE METABOLIC 2019-06-17 22:30:00 ElevBrigida yuan [facility]alism PANEL [place] ESTIMATED GFR 2019-06-17 22:30:00 Manny Ambriz Sharonlindy [facility] TROPONIN 2019-06-17 22:30:00 CierraCharleeto n [facility]ism LACTIC ACID LEVEL 2019-06-17 22:30:00 CierraCharlee [facility]ism MANUAL DIFFERENTIAL 2019-06-17 22:30:00 Manny Ambriz [facility] ANTIBODY IDENTIFICATION 2019-06-17 22:30:00 Manny Ambriz C ANTIGEN PATIENT TYPING 2019-06-17 22:30:00 Manny mAbriz Pentecostalism (LITTLE C) C ANTIGEN PATIENT TYPING 2019-06-17 22:30:00 Manny Ambriz KENYA ANTIGEN PATIENT 2019-06-17 22:30:00 Manny Ambriz on [facility]ec[facility]alism TYPING E ANTIGEN PATIENT TYPING 2019-06-17 22:30:00 Manny Ambriz E ANTIGEN PATIENT TYPING 2019-06-17 22:30:00 Manny Ambriz (LITTLE E) DIRECT AREN' (MEGHAN) 2019-06-17 22:30:00 Manny Ambriz on Pentecostalism POSITIVE MEGHAN REFLEX WITH 2019-06-17 22:30:00 Manny Ambriz SALINE ELUTION 2019-06-17 22:30:00 Manny Ambriz [facility] PREPARE RBC 2019-06-17 22:30:00 Brigida Adhikari Met coby Donald GENERAL 2019-06-17 22:10:00 Charlee Norton URINE CULTURE 2019-06-17 21:40:00 Brigida Adhikari Met coby Doanld URINALYSIS SCREEN AND 2019-06-17 21:40:00 Brigida Adhikari on [facility]ecostalism MICROSCOPY, WITH REFLEX Shabana TO CULTURE ECG 12-LEAD 2019-06-17 20:54:46 Charlee Norton XR CHEST 1 VW PORTABLE 2019-06-17 20:42:25 Charlee Norton Plan of Care Planned Activity Planned Date Details Comments Source Future Scheduled 2020-04-20 INFLUENZA VACCINE (#1) [facility] Test 00:00:00 [code = INFLUENZA Medical Ce nter VACCINE (#1)] Future Scheduled 2020-03-20 INFLUENZA VACCINE [place] [facility] Test 00:00:00 [code = INFLUENZA VACCINE] Future Scheduled 2018-08-[address] [facility] Test 00:00:00 WELLNESS (YEAR 2 or Medical Center FIRST YEAR if no IPPE) [code = MEDICARE ANNUAL WELLNESS (YEAR 2 or FIRST YEAR if no IPPE)] Future Scheduled 2000 Screening for [facility] Test 00:00:00 malignant neoplasm of cervix (procedure) [code = 843435049] Future Scheduled [address] [facility] - Test 00:00:00 malignant neoplasm of Medica l Center cervix (procedure) [code = 724687072] Future Scheduled [address] [facility] - Test 00:00:00 2-64 YEARS AT RISK (1 Medica l Center of 3 - PCV13) [code = PNEUMOCOCCAL VACCINE 2-64 YEARS AT RISK (1 of 3 - PCV13)] Encounters Start End Encounter Admission Attending Care Care Encounter Source Date/Time Date/Time Type Type Clinicians Facility Department ID 2020-03-17 2020-03-[address] [facility] [id number] 00:00:00 00:00:00 Wondiful A Anthony [id number] [employer] [id number] Professio [phone] [address] 2020-03-03 2020-03-03 Telephone [facility] [id number] 00:00:00 00:00:00 Wondiful A Health [id number] Anthony [id number] Professio [phone] [place] [address] Office [facility] 2020-02-02 2020-02-02 Telephone [facility] [id number] 00:00:00 00:00:00 Wondiful A Health [id number] Anthony [id number] Professio [phone] [place] [address] Office [address] [facility] 2020-01-30 2020-01-30 Telephone [facility] [id number] 00:00:00 00:00:00 Wondiful A Anthony [id number] [employer] [id number] Professio [phone] nal [facility] Building 2020-01-29 2020-01-29 Telephone Misty MTALLA [id number] 00:00:00 00:00:00 Jayson Hummel [id number] Anthony [id number] Professio [phone] [place] [address] Office [address] [facility] 2020-01-26 2020-01-26 Office Misty MTALLA [id number] 11:44:47 12:44:03 Visit Jayson Zambrano 350.1.13.10 [employer] [id number] Professio [phone] [address] 2014-09-08 2014-09-11 Outpatient Pj RUSS RUSS [id number] 20:44:00 21:40:00 Josiane 00 Results Test Description [...] 450 K/CU MM MPV (test code = 21937-1) 10.7 fL 9.4-12.3 nRBC (test code = 413) 3 0- 0 /100 WBC H Lab Interpretation (test code = 26370-3) [facility] [id number] 11:17:00 Test Item Value Reference Range Interpretation [...] = 3438) NOLAN (test code = NOLAN) [employer]spring St[employer] ID - Flavia lAvaressierra comments: Slide comments: Lab Interpretation (test Abnormal code = 65422-4) [facility] W/PLT COUNT & AUTO [id number] 11:17:00 Test Item Value Reference Range Interpretation [...] CONCENTRATION Adequate (CELLAVISION)(BEAKER) (test code = 3438) [employer] JAMILAH Neil comments: Slide comments:Basic Metabolic Panel 2019-12-28 06:00:00 Test Item Value Reference Range Interpretation Comments Sodium (test code = 138 meq/L 522-028 1915-2) Potassium (test code 3.6 meq/L 3.5-5.1 = 2823-3) Chloride (test code = 109 meq/L 98-107 H 2075-0) CO2 (test code = 23 meq/L 22-29 2028-9) BUN (test code = 7 mg/dL 7-21 3094-0) Creatinine (test code 0.79 mg/dL 0.57-1.25 = 2160-0) Glucose (test code = 89 mg/dL 70-105 2345-7) Calcium (test code = 8.4 mg/dL 8.4-10.2 50842-7) EGFR (test code = 98 mL/min/1.73 [place] [address]-3) NOT ACCURATE CREATININE CLEARANCE IN PREDICTING GLOMERULAR FILTRATION RATE . ESTIMATED GFR I S NOT APPLICABLE FOR DIALYSIS PATIENTS. NOLAN (test code = NOLAN) [employer] JAMILAH OSUNA MSpecimen slightly icteric Lab Interpretation Abnormal (test code = 07922-2) [facility] 06:00:00 Test Item Value Reference Range Interpretation Comments Magnesium (test code = 1.5 mg/dL 1.6-2.6 L 75165-4) NOLAN (test code = NOLAN) [employer] JAMILAH Medina Lab Interpretation (test Abnormal code = 83797-9) [facility]2020-05-10 06:00:00 Test Item Value Reference Range Interpretation Comments MAGNESIUM (BEAKER) (test code = 1.5 mg/dL 1.6-2.6 L 627) [employer] JAMILAH OSUNA MBASIC METABOLIC [id number] 06:00:00 Test Item Value Reference Range Interpretation [...] S NOT APPLICABLE FOR DIALYSIS PATIEN TS. [employer] JAMILAH OSUNA MSpecimen slightly ictericBlood Culture - Routine (Right Venipuncture)2019-12-27 17:00:00 Test Item Value Reference Range Interpretation Comments Result (test code = No growth in 5 days 6463-4) [facility] [id number] 17:00:00 Test Item Value Reference Range Interpretation Comments CULTURE (BEAKER) (test No growth in 5 days code = 1095) BLOOD [id number] 14:00:00 Test Item Value Reference Range Interpretation Comments CULTURE (BEAKER) (test No growth in 5 days code = 1095) CBC W/PLT COUNT & AUTO [id number] 09:03:00 Test Item Value Reference Range Interpretation [...] CONCENTRATION Adequate (CELLAVISION)(BEAKER) (test code = 3438) Hairspring Staker ID - Lisa Monae comments: Slide comments:[id number] 08:31:00 Test Item Value Reference Range Interpretation Comments MAGNESIUM (BEAKER) (test code = 1.5 mg/dL 1.6-2.6 L 627) Hairspring Staker ID - JAXSON CBASIC METABOLIC [id number] 08:31:00 Test Item Value Reference Range Interpretation [...] S NOT APPLICABLE FOR DIALYSIS PATIEN TS. Hairspring Staker ID - JAXSON CSpecimen slightly ictericVancomycin level, [id number] 09:08:00 Test Item Value Reference Range Interpretation Comments Vancomycin Tr (test code = 16.4 ug/mL 10-20 4092-3) NOLAN (test code = NOLAN) Hairspring Staker ID - JADA F Lab Interpretation (test Normal code = 79794-7) [facility] CenterVANCOMYCIN LEVEL, [id number] 09:08:00 Test Item Value Reference Range Interpretation Comments VANCOMYCIN TROUGH (BEAKER) (test 16.4 ug/mL 10.0-20.0 code = 522) [employer] St[employer] ID - JADA FCBC W/PLT COUNT & AUTO [id number] 06:59:00 Test Item Value Reference Range Interpretation [...] CONCENTRATION Adequate (CELLAVISION)(BEAKER) (test code = 3438) [employer] St[employer] ID - Flavia Neil comments: Slide comments:[id number] 04:53:00 Test Item Value Reference Range Interpretation Comments MAGNESIUM (BEAKER) (test code = 1.6 mg/dL 1.6-2.6 627) [employer]spring Staker ID - FRANCIS WBASIC METABOLIC [id number] 04:53:00 Test Item Value Reference Range Interpretation [...] S NOT APPLICABLE FOR DIALYSIS PATIEN TS. Hairspring Staker ID - FRANCIS WSpecimen slightly ictericPrepare [id number] 04:32:00 Test Item Value Reference Range Interpretation Comments Unit ABO (test code = O Pos 0891921) UNIT NUMBER (test code = [id number] 934-0) Status (test code = 3260865) WORK IN PROGRESS Blood Bank Product (test RED BLOOD CELLS code = 2263) PRODUCT CODE (test code = M9966L97 933-2) CROSSMATCH (test code = COMPATIBLE 2264) [facility] CenterMRSA [id number] 11:09:00 Test Item Value Reference Range Interpretation Comments Result (test code = 2+ Methicillin A 6463-4) resistant Staphylococcus aureus Lab Interpretation Abnormal (test code = 96623-1) [facility] CenterMR[facility] [id number] 11:09:00 Test Item Value Reference Range Interpretation Comments CULTURE (BEAKER) A 2+ Methicil joslyn resistant (test code = 1095) Staphyloc occus aureus CBC W/PLT COUNT & AUTO [id number] 08:47:00 Test Item Value Reference Range Interpretation [...] CONCENTRATION Decreased (CELLAVISION)(BEAKER) (test code = 3438) Hairspring Staker ID - 6000Operator ID - Em [place] comments: Slide comments:Hepatic function [id number] 04:50:00 Test Item Value Reference Range Interpretation Comments Protein, Total (test code 8.2 6.0- 8.3 gm/dL = 2885-2) Albumin (test code = 2.6 g/dL 3.5-5 L 79266-9) Total Bilirubin (test 3.8 mg/dL 0.2-1.2 H code = 1974-2) Bilirubin, Direct (test 2.0 mg/dL 0.1-0.5 H code = 1967-7) Alkaline Phosphatase 159 U/L 40-150 H (test code = 6768-6) AST (test code = 1920-8) 110 U/L 5-34 H ALT (test code = 1742-6) 88 U/L 6-55 H NOLAN (test code = NOLAN) Hairspring Staker ID - THAO MSpecimen slightly icteric Lab Interpretation (test Abnormal code = 32314-3) [facility] Center[facility]osph[facility]2020-05-07 04:50:00 Test Item Value Reference Range Interpretation Comments Phosphorus (test code = 3.2 mg/dL 2.3-4.7 2777-1) NOLAN (test code = NOLAN) Hairspring Staker ID - THAO M Lab Interpretation (test Normal code = 44510-3) [facility]OSPHORUS2020-05-07 04:50:00 Test Item Value Reference Range Interpretation Comments PHOSPHORUS (BEAKER) (test code = 3.2 mg/dL 2.3-4.7 604) [employer]spring Staker ID - THAO [id number] 04:50:00 Test Item Value Reference Range Interpretation Comments MAGNESIUM (BEAKER) (test code = 1.7 mg/dL 1.6-2.6 627) Hairspring Staker ID - THAO MBASIC METABOLIC [id number] 04:50:00 Test Item Value Reference Range Interpretation [...] S NOT APPLICABLE FOR DIALYSIS PATIEN TS. Hairspring Staker ID - THAO MSpecimen slightly ictericHEPATIC FUNCTION [id number] 04:50:00 Test Item Value Reference Range Interpretation [...] code = 88 U/L 6-55 H 347) [employer] Staker ID - THAO MSpecimen slightly ictericUrine [id number] 10:41:00 Test Item Value Reference Range Interpretation Comments Result (test code = <10,000 col/mL skin 6463-4) [facility] W/PLT COUNT & AUTO [id number] 10:30:00 Test Item Value Reference Range Interpretation [...] 1+ few = 767) Cell differential performed [id number] 06:08:00 Test Item Value Reference Range Interpretation Comments PHOSPHORUS (BEAKER) (test code = 2.8 mg/dL 2.3-4.7 604) [employer] St[employer] ID - THAO [id number] 06:08:00 Test Item Value Reference Range Interpretation Comments MAGNESIUM (BEAKER) (test code = 2.0 mg/dL 1.6-2.6 627) [employer] St[employer] JAMILAH OSUNA MBASIC METABOLIC [id number] 06:08:00 Test Item Value Reference Range Interpretation [...] S NOT APPLICABLE FOR DIALYSIS PATIEN TS. [employer]spring Staker JAMILAH Bolanosecimen moderately ictericHEPATIC FUNCTION [id number] 06:08:00 Test Item Value Reference Range Interpretation [...] code = 129 U/L 6-55 H 347) [employer] JAMILAH Bolanosecimen moderately ictericPrepare Leuko-Red [id number] 23:54:00 Test Item Value Reference Range Interpretation Comments Unit ABO (test code = O Pos 5523043) UNIT NUMBER (test code = [id number] 934-0) Status (test code = 3736881) TX_TIMEINCHART Blood Bank Product (test code RED BLOOD CELLS = 2263) PRODUCT CODE (test code = E7386I56 933-2) CROSSMATCH (test code = 2264) COMPATIBLE [facility]ANCOMYCIN LEVEL, [id number] 20:27:00 Test Item Value Reference Range Interpretation Comments VANCOMYCIN TROUGH (BEAKER) (test 13.6 ug/mL 10.0-20.0 code = 522) Hairspring Staker ID - BSCBC W/PLT COUNT & AUTO [id number] 16:07:00 Test Item Value Reference Range Interpretation [...] (BEAKER) (test code = 413) Hemoglobin and [id number] 07:58:00 Test Item Value Reference Range Interpretation Comments Hemoglobin (test code = 7.0 11.2- 15.7 GM/DL L 786-4) Hematocrit (test code = 21.1 % 34.1-44.9 L 4544-3) NOLAN (test code = NOLAN) Hairspring Staker ID - 6000 Lab Interpretation (test Abnormal code = 55681-3) [facility] CenterHEMOGLOBIN AND [id number] 07:58:00 Test Item Value Reference Range Interpretation Comments HEMOGLOBIN (BEAKER) (test code = 7.0 GM/DL 11.2-15.7 L 410) HEMATOCRIT (BEAKER) (test code = 21.1 % 34.1-44.9 L 411) Hairspring Staker ID - [id number] 12 [id number] 06:54:59Interface, External Ris In - 12/23/2019 6:55 AM CDTVentricular Rate 108 BPMAtrial Rate 108 BPMP-R Interval 158 msQRS Duration 72 msQ-T Interval 312 msQTC Calculation(Bazett) 418 msP [place] 74 degreesR [place] 39 degreesT [place] 54 degreesSinus tachycardia with occasional Premature ventricular complexesMinimal voltage criteria for LVH, may be normal variantBorderline ECGWhen compared with ECG of 59-XHN-307616:57,Premature ventricular complexes are now PresentConfirmed by MD HANNAH, DALTON Bautista ([id number]) on 12/23/2019 6:54:58 [facility] W/PLT COUNT & AUTO [id number] 05:49:00 Test Item Value Reference Range Interpretation [...] CONCENTRATION Adequate (CELLAVISION)(BEAKER) (test code = 3438) [employer] Staker JAMILAH Man comments: Slide comments:[id number] 02:53:00 Test Item Value Reference Range Interpretation Comments PHOSPHORUS (BEAKER) (test code = 3.7 mg/dL 2.3-4.7 604) Hairspring Staker ID Akilah MOORE [id number] 02:53:00 Test Item Value Reference Range Interpretation Comments MAGNESIUM (BEAKER) (test code = 2.1 mg/dL 1.6-2.6 627) Hairspring Staker ID Akilah MOORE LBASIC METABOLIC [id number] 02:53:00 Test Item Value Reference Range Interpretation [...] S NOT APPLICABLE FOR DIALYSIS PATIEN TS. Hairspring Staker ID - TERESA LSpecimen slightly ictericHEPATIC FUNCTION [id number] 02:53:00 Test Item Value Reference Range Interpretation [...] code = 191 U/L 6-55 H 347) Hairspring Staker ID - PIJOYCELYN LSpecimen slightly ictericHEMOGLOBIN AND HEMATOCRIT 2019-12-23 02:40:00 Test Item Value Reference Range Interpretation Comments HEMOGLOBIN (BEAKER) (test code = 7.4 GM/DL 11.2-15.7 L 410) HEMATOCRIT (BEAKER) (test code = 22.1 % 34.1-44.9 L 411) Hairspring Staker ID - 6000Legionella antigen, [id number] 23:53:00 Test Item Value Reference Range Interpretation Comments Legionella Urine Negative - see Negative for L. Antigen (test code comment pneumophi la = 24988-2) serogroup 1 ant igen, suggesting no r ecent or current infe ction with this serog roup. Legionellosis c annot be ruled out si nce other serogroup s and species may cau se disease. [facility] CenterLEGIONELLA ANTIGEN, [id number] 23:53:00 Test Item Value Reference Range Interpretation Comments L. PNEUMOPHILA Negative - see Negative fo r L. SEROGP 1 UR AG comment pneumophila (BEAKER) (test code serogrou p 1 antigen, = 1156) suggesting no r ecent or current infe ction with this serog roup. Legionellosis c annot be ruled out si nce other serogroup s and species may cau se disease. Strep pneumoniae [id number] 23:52:00 Test Item Value Reference Range Interpretation Comments Strep pneumoniae Presumptive negative Presumptive Antigen (test code = [place] [address]-4) pneumonia - see pneumococcal comment pneumonia - see comment, Presumptive negative for pneumococcal meningitis NOLAN (test code = NOLAN) Presumptive negative for pneumococcal pneumonia, suggesting no current or recent pneumococcal infection. Infection due to S. pneumoniae cannot be ruled out since the antigen present in the sample may be below the detection limit of the test. Lab Interpretation Normal (test code = 09867-2) [facility]TRE[facility] PNEUMONIAE [id number] 23:52:00 Test Item Value Reference Range Interpretation [...] the detection limit of the test. Troponin [id number] 21:54:00 Test Item Value Reference Range Interpretation Comments Troponin I (test code = 0.15 ng/mL 0-0.03 H 38041-0) NOLAN (test code = NOLAN) Troponin I [...] BS Lab Interpretation (test Abnormal code = 50149-4) [facility] CenterTROP[facility]IN [id number] 21:54:00 Test Item Value Reference Range Interpretation [...] failure, acidosis, acute neurological disease, and persistent tachyarrhythmia.Hairspring Staker ID - BSHEMOGLOBIN AND [id number] 19:32:00 Test Item Value Reference Range Interpretation Comments HEMOGLOBIN (BEAKER) (test code = 6.0 GM/DL 11.2-15.7 LL 410) HEMATOCRIT (BEAKER) (test code = 17.5 % 34.1-44.9 L 411) Hairspring Staker ID - 6000Potassium, random [id number] 17:15:00 Test Item Value Reference Range Interpretation Comments Potassium Urine 34.3 meq/L (test code = 2828-2) NOLAN (test code = Reference Range: No NOLAN) NormalsOperator ID - DB [facility] CenterPOTASSIUM, RANDOM [id number] 17:15:00 Test Item Value Reference Range Interpretation Comments POTASSIUM URINE (BEAKER) (test 34.3 meq/L code = 195) Reference Range: No NormalsOperator ID - DBProtein, random [id number] 17:07:00 Test Item Value Reference Range Interpretation Comments Protein, Urine (test code = 45 mg/dL 0-14 H 2888-6) NOLAN (test code = NOLAN) Hairspring Staker ID - DB Lab Interpretation (test Abnormal code = 31098-9) [facility] CenterPROTEIN, RANDOM [id number] 17:07:00 Test Item Value Reference Range Interpretation Comments PROTEIN, URINE (BEAKER) (test code = 45 mg/dL 0-14 H 1569) Hairspring Staker ID - DBCreatinine, random [id number] 17:06:00 Test Item Value Reference Range Interpretation Comments Creatinine, Ur 45.6 mg/dL (test code = 2161-8) NOLAN (test code = Reference Range: No NOLAN) NormalsOperator ID - DB [facility] Hospitalodium, random [id number] 17:06:00 Test Item Value Reference Range Interpretation Comments Sodium Urine (test 35 meq/L code = 2955-3) NOLNA (test code = Reference Range: No NOLAN) NormalsOperator ID - DBOperator ID - DB [facility] CenterCREATININE, RANDOM [id number] 17:06:00 Test Item Value Reference Range Interpretation Comments CREATININE URINE (BEAKER) (test 45.6 mg/dL code = 375) Reference Range: No NormalsOperator ID - DBSODIUM, RANDOM [id number] 17:06:00 Test Item Value Reference Range Interpretation Comments SODIUM URINE (BEAKER) (test code = 35 meq/L 243) Reference Range: No NormalsOperator ID - DBOperator ID - DBOsmolality, urine 2019-12-22 16:56:00 Test Item Value Reference Range Interpretation Comments Osmolality, Ur (test code = 353 50-1,200 mOsm/kg mOsm/kg 2695-5) Lab Interpretation (test code Normal = 51346-1) [facility] CenterOSMOLALITY, [id number] 16:56:00 Test Item Value Reference Range Interpretation Comments OSMOLALITY URINE (BEAKER) (test 353 mOsm/kg 50-1,200 mOsm/kg code = 614) Antibody [id number] 15:56:00 Test Item Value Reference Range Interpretation Comments ANTIBODY ID Unua-OnUmsk-JeOoob- Previous ly (BEAKER) (test POvhs-QJnzz-bWIJO identifi ed code = 2253) ANTIBODYUNID BgPreviously IgGWARM AUTO AB identified CwPreviously identified SPreviously identified Cold autoPreviously identified IgGPreviously identified Warm auto Antibody SIGNED OUT Anti E causes R BC Consult (test injury, transf use E code = 0239) negative RBCs. Anti c causes RBC in jury, transfuse c neg ative RBCs. History o f anti Cw, S, Bg and cold and warm autoantibodies. Elect ronic Signature : Karina Hendrix M.D. [facility] CenterRespiratory Panel [id number] 15:49:00 Test Item Value Reference Range Interpretation Comments Human Metapneumovirus Not detected Not detected, (test code = 70108-5) Equivocal Rhinovirus (test code = Not detected Not detected, 19153-3) Equivocal INFLUENZA A (NO Not detected Not detected, SUBTYPE) (test code = Equivocal 97032-1) Influenza A subtype H1 (test code = 88066-2) Influenza A Subtype H3 (test code = 23071-3) Influenza A Subtype H1-2009 (test code = 32989-8) Influenza B (test code Not detected Not detected, = 39588-1) Equivocal Respiratory Syncytial Not detected Not detected, Virus (test code = Equivocal 87711-8) Parainfluenza Virus 1 Not detected Not detected, (test code = 39540-8) Equivocal Parainfluenza Virus 2 Not detected Not detected, (test code = 73649-5) Equivocal Parainfluenza virus 3 Not detected Not detected, (test code = 79701-5) Equivocal Parainfluenza Virus 4 Not detected Not detected, (test code = 48849-3) Equivocal Adenovirus (test code = Not detected Not detected, 48622-6) Equivocal Coronavirus 229E (test Not detected Not detected, code = 03240-7) Equivocal Coronavirus HKU1 (test Not detected Not detected, code = 18492-9) Equivocal Coronavirus NL63 (test Not detected Not detected, code = 38088-2) Equivocal Coronavirus OC43 (test Not detected Not detected, code = 32720-0) Equivocal Bordetella Pertussis Not detected Not detected, (test code = 97044-0) Equivocal Chlamydophila Not detected Not detected, Pneumoniae (test code = Equivocal 67602-3) Mycoplasma Pneumoniae Not detected Not detected, (test code = 52147-2) Equivocal NOLAN (test code = NOLAN) Other viruses and bacteria not targeted by this PCR panel cannot be excluded; therefore clinical correlation and follow up of serology, culture results, and other molecular studies is required. The results are not intended to be used as the sole means for clinical diagnosis or patient management decisions. This sample was tested at the [facility] using the Single DigitsArray Respiratory Panel. It is FDA cleared and has been verified and approved by the [facility] for clinical use on nasopharyngeal swab specimens. The performance of the FilmArray RP has not been established in individuals who received influenza vaccine. Recent administration of a nasal influenza vaccine may cause false positive results for Influenza A and/orInfluenza B. [facility]RES[facility] [id number] 15:49:00 Test Item Value Reference Range Interpretation [...] decisions. This sample was tested at the [facility] using the Single DigitsArray Respiratory Panel. It is FDA cleared and has been verified and approved by the [facility] for clinical use on nasopharyngeal swab specimens.The performance of the FilmArrayRP has not been established in individuals who received influenza vaccine. Recent administration ofa nasal influenza vaccine may cause false positive results for Influenza A and/orInfluenza B.TROPONIN [id number] 14:50:00 Test Item Value Reference Range Interpretation Comments TROPONIN I (BEAKER) (test code = 0.26 ng/mL 0.00-0.03 [facility]) Troponin I (TnI) levels must be [...] failure, acidosis, acute neurological disease, and persistent tachyarrhythmia.Hairspring Staker ID - JADA FU/S, ABDOMINAL, [id number] 14:49:00Abdomen limited area? Add comment if clarification [...] containing an internal septation. Signed: Alyssia Munguia Verified Date/Time: 12/22/201914:49:18 Reading Location: [address] Radiology Reading Room US abdomen [id number] 14:49:00Interface, External Ris In - 12/22/2019 2:51 [...] containing an internal septation. Signed: Alyssia Munguia Verified Date/Time: 12/22/2019 14:49:18 Reading Location: [address] Radiology Reading Room [facility] W/PLT COUNT & AUTO DIFFERENTIAL 2019-12-22 14:41:00 [...] (BEAKER) Present (test code = 475) SARS-CoV2/RT-PCR ([facility] Ref Labs)2019-12-22 14:18:00 Test Item Value Reference Range Interpretation Comments SARS-COV2/RT-PCR Not Detected Not Detected, (test code = Negative 40884-6) SARS-COV-2 [facility] PERFORMING LAB (test code = 24137-7) NOLAN (test code = Negative results do [...] of the Act. Fact Sheet for Healthcare Providers:https://www.DearLocal/Documents/Xper t%20Xpress%20SARS%20CoV- 2/Fact%20Sheets/302-3802 %70QCHF-YQF-0%20HEALTHCA RE%20PROVIDERS%20FACT%20 SHEET.pdf Fact Sheet for Healthcare Patients:https://www.Atzip/Documents/Xpert %20Xpress%20SARS%20CoV-2 /Fact%20Sheets/302-3801% 11YAAX-EEL-6%20PATIENT%2 0FACT%20SHEET.pdf Performing Laboratory:[place] [address], [place] [address] [place], [place] [address]ARS-COV2/RT-PCR ([facility] REF [facility])2019-12-22 14:18:00 Test Item Value Reference Range Interpretation Comments SARS-COV2/RT-PCR (test Not Detected Not Detected, Negative code = 0252998) SARS-COV-2 PERFORMING LAB [facility] (test code = 3530405) Negative results do not preclude SARS-CoV-2 infection [...] of the Act.Fact Sheet for Healthcare Pro viders:https://www.[employer]/Documents/Xpert%20Xpress%20SARS%20CoV-2/Fact%20Sh eets/302-3802%50AHZV-KLS-6%20HEALTHCARE%20PROVIDERS%20FACT%20SHEET.pdfFact Sheet for Healthcare Patients:https://www.[employer]/Documents/Xpert%20Xpress%20SARS%20CoV-2/Fact%20Sheets/302-3801%20SARS-COV -2%20PATIENT%20FACT%20SHEET.pdfPerforming Laboratory:[facility], [place] [address]Isasd Influenza A&B [id number] 14:13:00 Test Item Value Reference Range Interpretation Comments Rapid Influenza A Antigen Negative Negative, Inconclusive (test code = 32568-6) Rapid influenza B Antigen Negative Negative, Inconclusive (test code = 69604-4) Lab Interpretation (test code Normal = 51533-9) [facility] CenterRAPID INFLUENZA A&B [id number] 14:13:00 Test Item Value Reference Range Interpretation Comments RAPID INFLUENZA A AG (BEAKER) Negative Negative, Inconclusive (test code = 1622) RAPID INFLUENZA B AG (BEAKER) Negative Negative, Inconclusive (test code = 1623) Bilirubin, [id number] 12:12:00 Test Item Value Reference Range Interpretation Comments Bilirubin, Indirect (test code = 3.3 mg/dL 0-1.1 H 1970-08) Lab Interpretation (test code = Abnormal 01187-7) [facility] CenterBILIRUBIN, [id number] 12:12:00 Test Item Value Reference Range Interpretation Comments BILIRUBIN, INDIRECT (BEAKER) (test 3.3 mg/dL 0.0-1.1 H code = 1554) Bilirubin, [id number] 12:10:00 Test Item Value Reference Range Interpretation Comments Bilirubin, Direct 2.7 mg/dL 0.1-0.5 H Specimen (test code = 1968-7) slightl y hemolyzed NOLAN (test code = NOLAN) Hairspring Staker ID - CAROLINA F Lab Interpretation Abnormal (test code = 96096-7) [facility] CenterBILIRUBIN, [id number] 12:10:00 Test Item Value Reference Range Interpretation Comments BILIRUBIN DIRECT 2.7 mg/dL 0.1-0.5 H Specimen sl ightly (BEAKER) (test code = hemoly zed 706) Hairspring Staker ID - [place] FUrinalysis w/Microscopic + Reflex to [id number] 11:31:00 Test Item Value Reference Range Interpretation Comments Color, UA (test code = Yellow 5778-6) Clarity, UA (test code = Hazy 5767-9) Specific Jansen, UA (test 1.013 1.001-1.035 code = 5811-5) pH, UA (test code = 5.5 5.0-8.0 5803-2) Protein, UA (test code = 20 mg/dL Negative A 88898-4) Glucose, UA (test code = Negative Negative 365) Ketones, UA (test code = Negative Negative 2514-8) Bilirubin, UA (test code = Negative Negative 33291-9) Blood, UA (test code = Small Negative A 58197-3) Nitrite, UA (test code = Negative Negative 5802-4) Leukocytes, UA (test code Small Negative A = 5799-2) Urobilinogen, UA (test 0.2 mg/dL 0.2-1 code = 52412-5) RBC, UA (test code = 1 /HPF 89415-3) WBC, UA (test code = 10 /HPF 5821-4) Bacteria, UA (test code = Few 40677-6) Mucus (test code = 8247-9) Few Squam Epithel, UA (test <1 /HPF code = 95231-2) Specimen Source (test code = 2795) NOLAN (test code = NOLAN) Hairspring Staker ID - [auto]Hairspring Staker ID - tech Lab Interpretation (test Abnormal code = 44093-0) [facility] CenterURINALYSIS W/ REFLEX URINE [id number] 11:31:00 Test Item Value Reference Range Interpretation [...] = 516) SOURCE(BEAKER) (test code = 2795) Hairspring Staker ID - [auto]Hairspring Staker ID - Cinthia4, [id number] 10:35:00 Test Item Value Reference Range Interpretation Comments Free T4 (test code = 0.85 ng/dL 0.7-1.48 3024-7) NOLAN (test code = NOLAN) Hairspring Staker ID - JADA Smith Lab Interpretation (test Normal code = 91252-3) [facility] CenterT, [id number] 10:35:00 Test Item Value Reference Range Interpretation Comments FREE T4 (BEAKER) (test code = 655) 0.85 ng/dL 0.70-1.48 Hairspring Staker ID - JADA FType and screen, [id number] 10:30:00 Test Item Value Reference Range Interpretation Comments ABO/RH AUTOMATED (BEAKER) (test O POSITIVE code = 2260) Ab Scrn (test code = 890-4) POSITIVE Echo 2 [facility] CenterHaptoglobin2020-05-04 10:18:00 Test Item Value Reference Range Interpretation Comments Haptoglobin (test code = <8 14-258 L 4542-7) NOLAN (test code = NOLAN) Hairspring Staker ID - JADA Smith Lab Interpretation (test Abnormal code = 44113-0) [facility] CenterHAPTOGLOBIN2020-05-04 10:18:00 Test Item Value Reference Range Interpretation Comments HAPTOGLOBIN (BEAKER) (test code = < mg/dL 14-258 L 366) Hairspring Staker ID - JADA LEON, CHEST, 1 VIEW, NON [id number] 10:06:00Reason for exam:->pneumoniaShould this be performed at the bedside?->YesFINAL REPORT INDICATION: pneumonia COMPARISON: July 08, 2019 TECHNIQUE: Single frontal view of the chest. FINDINGS: Lungs and pleura: Clear lungs. No effusion.Heart and mediastinum: Normal heart size. Unremarkable mediastinal contours.Osseous structures: No acute abnormality.Other: None. IMPRESSION: No acute intrathoracic abnormality. Signed: Cristina Duggan Verified Date/Time: 12/22/2019 10:06:04 Reading Location: [facility] Radiology Reading Room XR chest 1 view portable / [id number] 10:06:00 Interface, External Ris In - 12/22/2019 10:08 AM CDTFINAL REPORT INDICATION: pneumonia COMPARISON: July 08, 2019 TECHNIQUE: Single frontal view of the chest. FINDINGS: Lungs and pleura: Clear lungs. No effusion.Heart and mediastinum: Normal heart size. Unremarkable mediastinal contours.Osseous structures: No acute abnormality.Other: None. IMPRESSION: No acute intrathoracicabnormality. Signed: Cristina Duggan Verified Date/Time: 12/22/2019 10:06:04 Reading Location: [facility] Radiology Reading Room Electronically signed by: CRISTINA DUGGAN MD on 0 12/22/2019 10:06 [facility] 09:59:00 Test Item Value Reference Range Interpretation Comments Ferritin (test code = >86268.00 5-275 H 2276-4) NOLAN (test code = NOLAN) Hairspring Staker ID - NTP Lab Interpretation (test Abnormal code = 67114-1) [facility] CenterTSH/Free T4 If [id number] 09:59:00 Test Item Value Reference Range Interpretation Comments TSH (test code = 0.276 0.350- 4.940 uIU/mL L 76975-7) NOLAN (test code = NOLAN) Hairspring Staker ID - NTP Lab Interpretation (test Abnormal code = 57576-4) [facility] CenterFERRITIN2020-05-04 09:59:00 Test Item Value Reference Range Interpretation Comments FERRITIN (BEAKER) (test code = 361) > ng/mL 5.00-275.00 H Hairspring Staker ID - NTPTSH/FREE T4 IF [id number] 09:59:00 Test Item Value Reference Range Interpretation Comments THYROID STIMULATING HORMONE 0.276 uIU/mL 0.350-4.940 L (BEAKER) (test code = 772) Hairspring Staker ID - NTPVitamin B12 and [id number] 09:57:00 Test Item Value Reference Range Interpretation Comments Vitamin B12 (test code = 788 pg/mL 979-896 1345-9) Folate (test code = 2284-8) 6.00 ng/mL >=7.00 L NOLAN (test code = NOLAN) Hairspring Staker ID - NTP Lab Interpretation (test Abnormal code = 52013-5) [facility] CenterVITAMIN B12 AND [id number] 09:57:00 Test Item Value Reference Range Interpretation Comments VITAMIN B12 (BEAKER) (test code = 788 pg/mL 213-816 774) FOLATE (BEAKER) (test code = 362) 6.00 ng/mL >=7.00 L Hairspring Staker ID - CZPCvaxhhyt1053-63-36 09:27:00 Test Item Value Reference Range Interpretation Comments Cortisol, Total (test code 20.4 ug/dL 3.7-19.4 H = 2755) NOLAN (test code = NOLAN) Hairspring Staker ID - NTP Lab Interpretation (test Abnormal code = 63367-4) [facility] CenterCORTISOL2020-05-04 09:27:00 Test Item Value Reference Range Interpretation Comments CORTISOL, TOTAL (BEAKER) (test 20.4 ug/dL 3.7-19.4 H code = 2755) Hairspring Staker ID - NTPTROPONIN [id number] 09:22:00 Test Item Value Reference Range Interpretation [...] failure, acidosis, acute neurological disease, and persistent tachyarrhythmia.Hairspring Staker ID - [place] FComprehensive metabolic [id number] 09:19:00 Test Item Value Reference Range Interpretation Comments Protein, Total (test 9.2 6.0- 8.3 gm/dL H Speci men code = 2885-2) slightly hemolyzed Albumin (test code = 3.1 g/dL 3.5-5 [place] [address]-3) slightly hemolyzed Alkaline Phosphatase 162 U/L 40-150 [...] (test code = 8.3 mg/dL 8.4-10.2 L 93776-3) AST (test code = 648 U/L 5-34 H Specimen 1920-8) slightly hemolyzed ALT (test code = 188 U/L 6-55 H Specimen 1742-6) slightly hemolyzed EGFR (test code = 54 mL/min/1.73 [place] [address]-4) NOT ACCURATE CREATININE CLEARANCE IN PREDICTING GLOMERULAR FILTRATION RATE . ESTIMATED GFR I S NOT APPLICABLE FOR DIALYSIS PATIENTS. NOLAN (test code = NOLAN) Hairspring Staker ID - [place] FSpecimen moderately icteric Lab Interpretation Abnormal (test code = 84621-7) [facility] CenterAmylase2020-05-04 09:19:00 Test Item Value Reference Range Interpretation Comments Amylase (test code = 20 U/L 25-125 L Specime n 1798-8) slightly hemolyzed NOLAN (test code = NOLAN) Hairspring Staker ID Akilah Shultz moderately icteric Lab Interpretation Abnormal (test code = 94830-2) [facility] CenterLactate dehydrogenase (LDH)2019-12-22 09:19:00 Test Item Value Reference Range Interpretation Comments LDH (test code = 2132 U/L 125-220 H Specimen 2532-0) slightly hemolyzed NOLAN (test code = NOLAN) Hairspring Staker ID Akilah JASSO F Lab Interpretation Abnormal (test code = 95924-0) [facility] CenterLipase2020-05-04 09:19:00 Test Item Value Reference Range Interpretation Comments Lipase (test code = 13 U/L 8-78 3040-3) NOLAN (test code = NOLAN) Hairspring Staker ID Akilah Shultz moderately icteric Lab Interpretation (test Normal code = 83517-9) [facility] CenterMAGNESIUM2020-05-04 09:19:00 Test Item Value Reference Range Interpretation Comments MAGNESIUM (BEAKER) 2.1 mg/dL 1.6-2.6 Specimen slightly (test code = 627) hemolyzed Hairspring Staker ID Akilah JASSO FCOMPREHENSIVE METABOLIC [id number] 09:19:00 Test Item Value Reference Range Interpretation [...] S NOT APPLICABLE FOR DIALYSIS PATIEN TS. Hairspring Staker ID Akilah JASSO FSpecimen moderately [id number] 09:19:00 Test Item Value Reference Range Interpretation Comments AMYLASE (BEAKER) (test 20 U/L 25-125 L Speci men slightly code = 349) hemolyzed Hairspring Staker ID Akilah JASSO FSpecimen moderately fgmyhlwOBSNBJ7731-42-41 09:19:00 Test Item Value Reference Range Interpretation Comments LIPASE (BEAKER) (test code = 749) 13 U/L 8-78 Hairspring Staker ID Akilah JASSO FSpecimen moderately ictericLACTATE DEHYDROGENASE (LDH) 2019-12-22 09:19:00 Test Item Value Reference Range Interpretation Comments LACTATE DEHYDROGENASE 2132 U/L 125-220 H Specim en slightly (BEAKER) (test code = hemoly zed 635) Hairspring Staker ID Akilah JASSO MAziakiifcizoe7854-41-84 09:17:00 Test Item Value Reference Range Interpretation Comments Procalcitonin (test code = 7.49 ng/mL <0.05 H 87888-2) NOLAN (test code = NOLAN) SEPSIS RISK (ng/mL)Low: 0.05-0.50Intermedi ate: 0.51-2.00High: >=2.01 Lab Interpretation (test Abnormal code = 37715-1) [facility] CenterPROCALCITONIN2020-05-04 09:17:00 Test Item Value Reference Range Interpretation [...] = 2502-3) NOLAN (test code = NOLAN) Hairspring Staker ID - NTP Lab Interpretation (test Abnormal code = 70932-0) [facility] CenterIRON, TIBC, % SAT. (WITHOUT FERRITIN)2019-12-22 09:05:00 Test Item Value Reference Range Interpretation Comments IRON (BEAKER) (test code = 547) 147.0 ug/dL 40.0-160.0 TOTAL IRON BINDING CAPACITY 93 ug/dL 250-450 L (BEAKER) (test code = 769) IRON % SATURATION (2) (BEAKER) 158 % 20-55 H (test code = 2590) Hairspring Staker ID - NTPReticulocyte [id number] 09:01:00 Test Item Value Reference Range Interpretation Comments % Retic (test code = >30.0 0.5-1.7 H 84858-1) NOLAN (test code = NOLAN) Hairspring Staker ID - 6000 Lab Interpretation (test Abnormal code = 18142-0) [facility] CenterLactic acid, [id number] 09:01:00 Test Item Value Reference Range Interpretation Comments Lactate, Venous (test 1.65 mmol/L 0.5-2.2 Specim en code = 2872) slightly hemolyzed NOLAN (test code = NOLAN) Hairspring Staker ID - [place] FSpecimen moderately icteric Lab Interpretation Normal (test code = 92162-1) [facility] CenterLACTIC ACID, [id number] 09:01:00 Test Item Value Reference Range Interpretation Comments LACTATE BLOOD VENOUS 1.65 mmol/L 0.50-2.20 Specime n slightly (2) (BEAKER) (test hemolyzed code = 2872) Hairspring Staker ID - JADA FSpecimen moderately ictericHEMOGLOBIN AND HEMATOCRIT 2019-12-22 09:01:00 Test Item Value Reference Range Interpretation Comments HEMOGLOBIN (BEAKER) (test code = 3.9 GM/DL 11.2-15.7 LL 410) HEMATOCRIT (BEAKER) (test code = 11.6 % 34.1-44.9 L 411) Hairspring Staker ID - 6000RETICULOCYTE [id number] 09:01:00 Test Item Value Reference Range Interpretation Comments RETICULOCYTE COUNT PCT (BEAKER) (test > % 0.5-1.7 H code = 575) Hairspring Staker ID - 6530kNGW7179-62-31 08:55:00 Test Item Value Reference Range Interpretation Comments PTT (test code = 56393-3) 54.4 22.5- 36.0 seconds H Lab Interpretation (test code = Abnormal 14216-7) [facility] CenterAPTT2020-05-04 08:55:00 Test Item Value Reference Range Interpretation Comments PARTIAL THROMBOPLASTIN TIME 54.4 seconds 22.5-36.0 H (BEAKER) (test code = 760) [id number] 08:54:00 Test Item Value Reference Range Interpretation Comments Fibrinogen (test code = 3255-7) 521 mg/dl 225-434 H Lab Interpretation (test code = Abnormal 19687-8) [facility] CenterProthrombin time/[id number] 08:54:00 Test Item Value Reference Range Interpretation [...] valves. Lab Interpretation Abnormal (test code = 68212-5) [facility] CenterPROTHROMBIN TIME/[id number] 08:54:00 Test Item Value Reference Range Interpretation [...] INR is2.5-3.5 for patients wiht mechanical heart valves.FRAIXTMCYN2268-69-04 08:54:00 Test Item Value Reference Range Interpretation Comments FIBRINOGEN LEVEL (BEAKER) (test 521 mg/dl 225-434 H code = 658) CBC W/PLT COUNT & AUTO [id number] 10:53:00 Test Item Value Reference Range Interpretation [...] CONCENTRATION Adequate (CELLAVISION)(BEAKER) (test code = 3438) Hairspring Staker ID - Amber OverholtUser comments: Slide comments:CBC W/PLT COUNT & AUTO [id number] 11:14:00 Test Item Value Reference Range Interpretation [...] 0.23 K/uL 0.04-0.36 (CELLAVISION)(BEAKER) (test code = 2834) ATYPICAL LYMPHOCYTES - ABS 0.23 K/uL 0.00-0.00 [...] CONCENTRATION Decreased (CELLAVISION)(BEAKER) (test code = 3438) Hairspring Staker ID - Flavia Neil comments: Slide comments:VANCOMYCIN LEVEL, TROUGH 2019-09-28 12:48:00 Test Item Value Reference Range Interpretation Comments VANCOMYCIN TROUGH (BEAKER) (test 10.5 ug/mL 10.0-20.0 code = 522) Hairspring Staker ID - DARRELL WCatheter Tip Sgfjwip8900-69-51 08:49:00 Test Item Value Reference Range Interpretation Comments Result (test code = 6463-4) No growth [facility]CAT[facility] TIP [id number] 08:49:00 Test Item Value Reference Range Interpretation Comments CULTURE (BEAKER) (test code = 1095) No growth CBC W/PLT COUNT & AUTO [id number] 07:43:00 Test Item Value Reference Range Interpretation [...] CONCENTRATION Decreased (CELLAVISION)(BEAKER) (test code = 3438) Hairspring Staker ID - Amber OverholtUser comments: Slide comments:CBC W/PLT COUNT & AUTO [id number] 13:45:00 Test Item Value Reference Range Interpretation [...] CONCENTRATION Decreased (CELLAVISION)(BEAKER) (test code = 3438) Hairspring Staker ID - Lisa Monae comments: Slide comments:BASIC [...] S NOT APPLICABLE FOR DIALYSIS PATIEN TS. Hairspring Staker ID - TERESA LSpecimen slightly ictericCBC W/PLT COUNT & AUTO [id number] 13:34:00 Test Item Value Reference Range Interpretation [...] CONCENTRATION Adequate (CELLAVISION)(BEAKER) (test code = 3438) Hairspring Staker ID - Jada Recinos comments: Slide comments: WBC: SEGMENTED WITH TOXIC GRANULATIONS PRESENTBASIC METABOLIC [id number] 06:47:00 Test Item Value Reference Range Interpretation [...] S NOT APPLICABLE FOR DIALYSIS PATIEN TS. Hairspring Staker ID - THAO MSpecimen slightly ictericANG, REMOVAL OF TUNNELED CVC W/PORT 2019-09-25 11:46:00Reason for exam:->infectedAddendum BeginsREPORT STATUS:A Addendum:ANESTHESIA: Conscious sedation was provided by radiology nursing using constant hemodynamic monitoring for 30 minutes. Versed IV 0.5 mg, Dilaudid 2 mg. Signed: Lawrence Johnson MDReport Verified Date/Time: 09/25/2019 11:46:52 Reading Location: [place] [address] Angio Body Reading RoomAddendum EndsFINAL REPORT PROCEDURE: Venous Port Removal CLINICAL HISTORY: infected DOOR CORE ASSEMBLER: Lawrence Johnson DO, JD ANESTHESIA: Local lidocaine. [...] MDReport Verified Date/Time: 09/25/2019 11:37:20 Reading Location: [place] [address] Angio Body Reading Room IR Port [id number] 11:37:00Interface, External Ris In - 09/25/2019 11:49 AM CSTAddendum BeginsREPORT STATUS:A Addendum:ANESTHESIA: Conscious sedation was provided by radiology nursing using constant hemodynamic monitoring for 30 minutes. Versed IV 0.5 mg, Dilaudid 2 mg. Signed: Lawrence Johnson MDReport Verified Date/Time: 09/25/2019 11:46:52 Reading Location: [place] [address] Angio Body Reading RoomAddendum EndsFINAL REPORT PROCEDURE: Venous Port Removal CLINICAL HISTORY: infected DOOR CORE ASSEMBLER: Lawrence Johnson DO, PEPE ANESTHESIA: Local lidocaine. RADIATION DOSE [...] MDReport Verified Date/Time: 09/25/2019 11:37:20 Reading Location: [place] [address] Angio Body Reading Room [facility] W/PLT COUNT & AUTO [id number] 11:09:00 Test Item Value Reference Range Interpretation [...] CONCENTRATION Adequate (CELLAVISION)(BEAKER) (test code = 3438) Hairspring Staker ID - [id number] ID - Amber OverholtUser comments: Slide comments:BASIC METABOLIC HIZAZ1979 10:16:00 Test Item Value Reference Range Interpretation [...] S NOT APPLICABLE FOR DIALYSIS PATIEN TS. Hairspring Staker ID - LMSpecimen slightly ictericPT/uFJU0579-21-18 05:53:00 Test Item Value Reference Range Interpretation Comments Protime (test code = 14.4 11.9- 14.2 H 5902-2) seconds INR (test code = 1.2 <=5.9 6301-6) PTT (test code = 31.4 22.5- 36.0 09124-2) seconds NOLAN (test code = NOLAN) Effective 01/15/2019: PT Reference Range ChangeNew: 11.9-14.2 Previous: 11.7-14.7 RECOMMENDED COUMADIN/WARFARIN INR THERAPY RANGESSTANDARD DOSE: 2.0-3.0 Includes: PROPHYLAXIS for venous thrombosis, systemic embolization; TREATMENT for venous thrombosis and/or pulmonary embolus.HIGH RISK: Target INR is 2.5-3.5 for patients wiht mechanical heart valves. Lab Interpretation Abnormal (test code = 01710-1) [facility] CenterPT/[id number] 05:53:00 Test Item Value Reference Range Interpretation [...] for patients wiht mechanical heart valves. Screen, rzugr6616-32-19 23:22:00 Test Item Value Reference Range Interpretation Comments Preg Test, Ur (test code = 2112-1) Negative [facility] CenterPREGNANCY SCREEN, [id number] 23:22:00 Test Item Value Reference Range Interpretation Comments TEST URINE (BEAKER) (test Negative code = 583) CBC W/PLT COUNT & AUTO [id number] 14:10:00 Test Item Value Reference Range Interpretation [...] CONCENTRATION Adequate (CELLAVISION)(BEAKER) (test code = 3438) Hairspring Staker ID - [id number] ID - Em [place] comments: Slide comments:Manual Nwxkzpmlrhzs4346-87-16 10:51:00 Test Item Value Reference Range Interpretation [...] 481) Lab Interpretation (test code = Abnormal 85976-1) [facility](MANUAL DIFFERENTIAL)2019-07-20 10:51:00 Test Item Value Reference Range [...] = 481) CBC W/PLT COUNT & AUTO [id number] 10:49:00 Test Item Value Reference Range Interpretation [...] 0-0 (BEAKER) (test code = 413) RETICULOCYTE [id number] 09:49:00 Test Item Value Reference Range Interpretation Comments RETICULOCYTE COUNT PCT (BEAKER) (test 5.0 % 0.4-2.9 H code = 575) yun RICARDOeekwqe6314-22-25 16:02:00 Test Item Value Reference Range Interpretation Comments ABO Grouping (test code O Test ing performed by: = 2588) [facility] [address] [address], [address], [place] [address] Rh Factor (test code = POS Testi ng performed by: 2589) [facility] [address], [address], [place] [address] [facility] CenterCBC [facility]T [facility] & AUTO [id number] 07:19:00 Test Item Value Reference Range Interpretation [...] (test code = 1+ few 480) RETICULOCYTE [id number] 06:38:00 Test Item Value Reference Range Interpretation Comments RETICULOCYTE COUNT PCT (BEAKER) (test 5.4 % 0.4-2.9 H code = 575) CBC W/PLT COUNT & AUTO [id number] 05:39:00 Test Item Value Reference Range Interpretation [...] = 480) CBC W/PLT COUNT & AUTO [id number] 06:39:00 Test Item Value Reference Range Interpretation [...] code 1+ few = 480) BASIC METABOLIC [id number] 05:53:00 Test Item Value Reference Range Interpretation [...] PATIEN TS. CBC W/PLT COUNT & AUTO BTPLKFMKPQEC2947-34-29 07:08:00 Test Item Value Reference Range Interpretation [...] code 1+ few = 480) BASIC METABOLIC [id number] 06:11:00 Test Item Value Reference Range Interpretation [...] S NOT APPLICABLE FOR DIALYSIS PATIEN TS. [id number] 06:58:00 Test Item Value Reference Range Interpretation Comments FERRITIN (BEAKER) (test code = 43001 ng/mL 10-291 H 361) CBC W/PLT COUNT & AUTO [id number] 06:17:00 Test Item Value Reference Range Interpretation [...] code 1+ few = 480) BASIC METABOLIC [id number] 05:33:00 Test Item Value Reference Range Interpretation [...] FOR DIALYSIS PATIEN TS. Specimen slightly ictericRETICULOCYTE [id number] 05:20:00 Test Item Value Reference Range Interpretation Comments RETICULOCYTE COUNT PCT (BEAKER) (test 7.1 % 0.4-2.9 H code = 575) Immature reticulocyte lgdncafo7114-78-78 09:45:00 Test Item Value Reference Range Interpretation Comments Immature Reticulocyte Fraction (test 25.300 % 3-15.9 H code = 40456-3) % Retic (test code = 96820-9) 8.2 % 0.5-1.7 H Lab Interpretation (test code = Abnormal 56882-5) [facility] CenterIMALTURE RETICULOCYTE [id number] 09:45:00 Test Item Value Reference Range Interpretation Comments IMMATURE RETIC FRACTION (BEAKER) 25.300 % 3.000-15.900 H (test code = 1447) RETICULOCYTE COUNT PCT (BEAKER) 8.2 % 0.5-1.7 H (test code = 575) CBC W/PLT COUNT & AUTO [id number] 07:24:00 Test Item Value Reference Range Interpretation [...] code 1+ few = 480) BASIC METABOLIC [id number] 06:38:00 Test Item Value Reference Range Interpretation [...] NOT APPLICABLE FOR DIALYSIS PATIEN TS. BLOOD [id number] 01:01:00 Test Item Value Reference Range Interpretation Comments CULTURE (BEAKER) (test No growth in 5 days code = 1095) IMMATURE RETICULOCYTE [id number] 11:40:00 Test Item Value Reference Range Interpretation Comments IMMATURE RETIC FRACTION (BEAKER) 26.500 % 3.000-15.900 H . (test code = 1447) RETICULOCYTE COUNT PCT (BEAKER) 10.4 % 0.5-1.7 H (test code = 575) CBC W/PLT COUNT & AUTO [id number] 06:04:00 Test Item Value Reference Range Interpretation [...] code 1+ few = 480) BASIC METABOLIC [id number] 05:32:00 Test Item Value Reference Range Interpretation [...] DIALYSIS PATIEN TS. Prepare Leuko-Red & Irrad [id number] 23:55:00 Test Item Value Reference Range Interpretation Comments Unit ABO (test code = O Pos 0410123) UNIT NUMBER (test code = [id number] 934-0) Status (test code = 3325235) [place]_TIMEINCHART Blood Bank Product (test code RED BLOOD CELLS = 2263) PRODUCT CODE (test code = Z5230O19 933-2) CROSSMATCH (test code = 2264) COMPATIBLE [facility] W/PLT COUNT & AUTO [id number] 07:01:00 Test Item Value Reference Range Interpretation [...] = 480) CBC W/PLT COUNT & AUTO XXWXJDDMXNKJ4504-03-23 05:35:00 Test Item Value Reference Range Interpretation [...] code = 1+ few 480) BASIC METABOLIC [id number] 04:57:00 Test Item Value Reference Range Interpretation [...] APPLICABLE FOR DIALYSIS PATIEN TS. BASIC METABOLIC [id number] 08:58:00 Test Item Value Reference Range Interpretation [...] PATIEN TS. CBC W/PLT COUNT & AUTO [id number] 07:52:00 Test Item Value Reference Range Interpretation [...] = 481) CBC W/PLT COUNT & AUTO [id number] 11:40:00 Test Item Value Reference Range Interpretation [...] 0-0 PERCENT (BEAKER) (test code = 2801) [id number] 05:32:00 Test Item Value Reference Range Interpretation Comments MAGNESIUM (BEAKER) (test code = 1.7 mg/dL 1.5-3.0 627) BASIC METABOLIC [id number] 05:30:00 Test Item Value Reference Range Interpretation [...] S NOT APPLICABLE FOR DIALYSIS PATIEN TS. Igjbvpqsp6474-43-54 05:25:00 Test Item Value Reference Range Interpretation Comments Potassium (test code = 2823-3) 5.0 meq/L 3.6-5.5 Lab Interpretation (test code = Normal 90722-4) [facility] CenterPOT[facility]SIUM2019-11-20 05:25:00 Test Item Value Reference Range Interpretation Comments POTASSIUM (SOMMER) (test code = 5.0 meq/L 3.6-5.5 379) CRITICAL [id number] 00:11:29Lencho Baptiste III, DO 10/20/2019 12:43 AMCritical [...] of patient's condition and review of old charts.[facility] CenterECG/EKG Nyitiacfiznxzr1320-60-92 00:11:29Lencho her III, DO 10/20/2019 12:43 AMECG/EKG InterpretationDate/Time: 07/08/2019 [...] the procedure well with no immediate complications [facility] CenterRAD, CHEST, 1 VIEW, NON [id number] 20:10:00 Reason for exam:->chest painIs the patient [...] Dinah Giordano Verified Date/Time: 07/08/2019 20:10:40 Urinalysis w/Xmmcashynzk8448-30-24 19:36:00 Test Item Value Reference Range Interpretation Comments Color, UA (test code = 5778-6) Yellow Clarity, UA (test code = 5767-9) Clear Specific Jansen, UA (test code = 1.010 1.001-1.035 5811-5) pH, UA (test code = 5803-2) 8.5 5.0-8.0 H Protein, UA (test code = 24497-4) Negative Negative Glucose, UA (test code = 365) Negative Negative Ketones, UA (test code = 2514-8) Negative Negative Bilirubin, UA (test code = 39654-4) Negative Negative Blood, UA (test code = 19776-8) Trace Negative A Nitrite, UA (test code = 5802-4) Negative Negative Leukocytes, UA (test code = 5799-2) Negative Negative Urobilinogen, UA (test code = 2.0 mg/dL 0.2-1 H 96824-5) Bacteria, UA (test code = 28709-8) None Seen Amorphous Crystals (test code = Moderate 42574-7) RBC, UA (test code = 799-7) None Seen /HPF WBC, UA (test code = 31898-9) None Seen /HPF SQUAMOUS EPITHELIAL (test code = <5 /HPF 51103-9) Specimen Source (test code = 2795) Lab Interpretation (test code = Abnormal 74379-8) [facility] CenterURINALYSIS W/ [id number] 19:36:00 Test Item Value Reference Range Interpretation [...] 1663) SOURCE(BEAKER) (test code = 2795) SCREEN, [id number] 19:25:00 Test Item Value Reference Range Interpretation Comments TEST URINE (BEAKER) (test Negative code = 583) TROPONIN [id number] 19:16:00 Test Item Value Reference Range Interpretation [...] code 2+ moderate = 480) BASIC METABOLIC [id number] 19:07:00 Test Item Value Reference Range Interpretation [...] APPLICABLE FOR DIALYSIS PATIEN TS. Specimen slightly kpuovuxZFEYRXMKO7452-22-88 19:07:00 Test Item Value Reference Range Interpretation Comments MAGNESIUM (BEAKER) (test code = 1.9 mg/dL 1.5-3.0 627) RETICULOCYTE [id number] 19:03:00 Test Item Value Reference Range Interpretation Comments RETICULOCYTE COUNT PCT (BEAKER) (test 23.6 % 0.4-2.9 H code = 575) CBC with platelet and wdlbphefcopy6902-05-03 11:57:18 Test Item Value Reference Range Interpretation Comments WBC (test code = 06667-5) 12.6 4.5- 11.0 k/uL H WBC was corrected for NRBCs RBC (test code = 12946-3) 2.24 m/uL 4.2-5.5 L HGB (test code [...] (test code = 87.6 fL 37-55 H 80998-1) MPV (test code = 53287-1) 11.2 fL 6.9-11 H Platelet count (test code 142 K/uL 150-400 L = 49778-7) Nucleated RBC (test code 10.30 /100 WBC = 71077-9) Neutrophils (test code = 57.0 % 39-69 22674-0) Lymphocytes (test code = 30.0 % 25-45 85527-4) Monocytes (test code = 11.0 % 0-10 H 81996-1) Eosinophils (test code = 2.0 % 0-5 54892-4) Basophils (test code = 1.0 % 0-1 78651-7) Lab Interpretation (test Abnormal code = 52405-6) [facility] MethodistManual dhghmhcrsoam1204-27-41 11:57:18 Test Item Value Reference Range Interpretation Comments Manual differential PERFORMED (test code = 52224-6) Neutrophils (test code 57.0 % 39-69 = 02778-2) Lymphocytes (test code 30.0 % 25-45 = 59170-0) Monocytes (test code = 11.0 % 0-10 H 10619-5) Eosinophils (test code 2.0 % 0-5 = 92516-1) Basophils (test code = 1.0 % 0-1 28240-3) Nucleated RBC (test 14 /100 WBC NRBC res ults have code = 50502-0) been factore d into the WBC count. No further calcula tion is needed. Platelet slide review Reggie slt decr A (test code = 27809-2) Dohle bodies (test Occasional code = 7792-5) Toxic granulation Slight (test code = 803-7) Neutrophils, Slight vacuolated (test code = 95040-3) Anisocytosis (test Moderate code = 702-1) Polychromasia (test Moderate code = 88984-2) Schistocytes (test Occasional code = 800-3) Target cells (test Many A code = 38578-6) Sickle cells (test Occasional A code = 801-1) [place] bodies Occasional (test code = 7793-3) Enlarged platelets Moderate A (test code = 21677-4) Giant platelets (test Occasional code = 5908-9) Elliptocytes (test Moderate A code = 94917-0) Lab Interpretation Abnormal (test code = 12646-8) [facility] MethodistBasic metabolic vuztv6843-69-76 06:55:50 Test Item Value Reference Range Interpretation Comments Sodium (test code = 2951-2) 141 135- 148 mEq/L Potassium (test code = 2823-3) 5.3 3.5- 5.0 mEq/L H Chloride (test code = 2075-0) 103 98- 112 mEq/L CO2 (test code = 8-9) 30 24- 31 mEq/L Anion gap (test code = 44282-0) 8@ANIO 7- 15 mEq/L BUN (test code = 3094-0) 6 mg/dL 6-20 Creatinine (test code = 2160-0) 0.46 mg/dL 0.5-0.9 L Glucose (test code = 2345-7) 113 mg/dL 65-99 H Calcium (test code = 08702-9) 9.2 mg/dL 8.3-10.2 Lab Interpretation (test code = Abnormal 47628-9) [place] MethodistEstimated HRR2345-21-26 06:55:50 Test Item Value Reference Range Interpretation Comments Estimated GFR (test >=90 mL/min/1.73 m2 Caterg ory Units code = 5488) InterpretationG 1 >=90 Normal or highG2 60-89 Mildly vpkqcvoeqQ1c 45-59 Mildly to mode rately lxvosnlzoI3d 30-44 Moderately to severely decreasedG4 15-29 Severely decre asedG5 <15 Kidn ey failureThe eGFR was calculated michele pinedo the Chronic Kidney Disease Epidemiology Co llaboration (CKD-EPI) equat ion. Interpretation is based on recommendations of the National Kidney Foundation-Kidn ey Disease Outcomes Qualit y Initiative (NKF-KDOQI) pub lished in 2014. [place] MethodistBlood culture, aerobic & btchsjryv7659-21-21 06:03:06 Test Item Value Reference Range Interpretation Comments Blood culture No growth Specimen isolate (test after 5 days InformationSpe cimen code = 600-7) of Source: BloodS pecimen incubation. Site: Antecubit al, right [place] MethodistSmear pfvgnv7450-85-52 10:51:14 Test Item Value Reference Range Interpretation Comments Platelet slide review (test code Reggie adequate = 50851-1) Anisocytosis (test code = 702-1) Moderate Target cells (test code = Many A 34753-6) Ovalocytes (test code = 774-0) Moderate Sickle cells (test code = 801-1) Occasional A [place] bodies (test code = Occasional 7793-3) Elliptocytes (test code = Occasional 64054-5) Lab Interpretation (test code = Abnormal 90677-7) [place] MethodistMagnesium ehztl6005-27-71 07:51:17 Test Item Value Reference Range Interpretation Comments Magnesium (test code = 42167-0) 1.6 mg/dL 1.6-2.6 [place] PentecostalismPrepare RBC, 2 Okthc3250-55-06 04:45:00 Test Item Value Reference Range Interpretation Comments Product name (test code Red Blood Cells -1, = 25) Leukored Unit number (test code [id number] = 0008146) Product code (test code C7840D19 = 3092) Dispense status (test Transfused code = 24) Blood expiration date (test code = 302) Blood type code (test 5100 code = 308) Blood type (test code = O POSITIVE 1314) Compatibility (test Compatible code = 6400) [facility]istPOC orpqvjx8769-74-39 21:00:19 Test Item Value Reference Range Interpretation Comments POC glucose (test code 101 mg/dL 65-99 H RN No tifiedMeter ID: = [id number]) [id number] tor: Zeb Smith Lab Interpretation Abnormal (test code = 58083-8) Den [place] Abdomen Rtpwahmr0815-08-24 08:27:12 Interface, Radiology Results Incoming - 06/19/2019 8:30 AM CDTEXAM: US ABDOMEN [...] definitively visualized due to overlying bowel gas. [id number]-[id number] [place] MethodistIonized iienofp7877-75-39 06:50:49 Test Item Value Reference Range Interpretation Comments pH (test code = 2753-2) 7.27 Ionized calcium (test code = 1.26 mmol/L 1.11-1.32 1994-) Den KnightECG 12 soqv1128-53-19 20:24:23 Test Item Value Reference Range Interpretation Comments Ventricular rate (test 92 code = 253) Atrial rate (test code = 92 255) OH interval (test code = 180 266) QRSD [...] Kelvin Sanchez (2008) on 06/18/2019 8:24:22 PM Den MethodistHemoglobin & cfnrngpamq7105-11-51 18:10:09 Test Item Value Reference Range Interpretation Comments HGB (test code = 718-7) 7.2 g/dL 12-16 L HCT (test code = 4544-3) 22.7 % 37-47 L Lab Interpretation (test code = Abnormal 61982-0) [place] MethodistXR Shoulder 2+ Vw Qlxkn7971-87-39 14:11:29Hm Interface, Radiology Results - 06/18/2019 2:14 PM CDTEXAMINATION: XR SHOULDER 2 VW RIGHTCLINICAL HISTORY: Humerus fractureCOMPARISON: None.IMPRESSION:1. Transverse fracture through theright mid humeral diaphysis demonstrates medial displacement of the distal fragment by one full shaft width, likely with at least half shaft width anterior displacement.2. Glenohumeral and acromioclavic ular relationships are within normal limits.Findings were discussed with patient's nurse at 1411. They are aware of the fracture.[facility]ENTERH-0NJ9766GOEVfpbbsz MethodistAntibody hcpyczgsadxbjz2067-46-59 07:18:00 Test Item Value Reference Range Interpretation Comments Antibody ID POS, Undetermined Patient abdi s a history (test code = Specificity of Anti-c, Anti -E, 13276-8) Anti-Cw, Anti-S , Anti-Wra and ac old agglutinin. Al l of the alloantibod ies can cause red cell damage andare clinical ly significant. R ed cells for trans fusion willphenotypica lly matched, sickle cell negative and crossmatch compatible.Veri fied by 3176. Den UaogqxdajVqluzyb0509-44-84 07:13:00 Test Item Value Reference Range Interpretation Comments Elution (test code = 883-9) NEG Den MethodistPositive MEGHAN reflex with cpkgwu6246-21-78 07:12:00 Test Item Value Reference Range Interpretation Comments IgG Aren, gel (test code = 1590) POS Anti-complement (test code = 1004-1) NEG Den MethodistDirect Aren' (MEGHAN)2019-06-18 07:11:00 Test Item Value Reference Range Interpretation Comments Lfwe-ImH-F1k Polyspecific (test code = POS 2585) [facility] Antigen patient typing (little e)2019-06-18 07:10:00 Test Item Value Reference Range Interpretation Comments e Antigen Patient Typing (little e) POS (test code = 2605) [facility] patient jyrkcs1202-63-46 07:08:00 Test Item Value Reference Range Interpretation Comments Erwinna Antigen Patient Typing (test code NEG = 2616) [facility] Antigen patient typing (little c)2019-06-18 07:07:00 Test Item Value Reference Range Interpretation Comments c Antigen Patient Typing (little c) NEG (test code = 2591) [facility] antigen patient bywvea9895-45-36 07:05:00 Test Item Value Reference Range Interpretation Comments E Antigen Patient Typing (test code = NEG 2604) [facility] antigen patient huosuw1296-48-06 07:04:00 Test Item Value Reference Range Interpretation Comments C Antigen Patient Typing (test code = POS 2590) [facility] HospitalCbqxtvjszCqgjsxjd4448-05-71 05:56:31 Test Item Value Reference Range Interpretation Comments Troponin (test code 0.006 ng/mL 0-0.04 [facility] = 67156-4) Laboratories ch anged methodology eff ective: 12/24/2018 at 10: 00 amThe new method has a 99th percentile cuto ff of 0.040 ng/mL Den HughesistPotassium iaaub5223-80-34 01:33:06 Test Item Value Reference Range Interpretation Comments Potassium (test code = 2823-3) 4.2 3.5- 5.0 mEq/L Den HughesistType and csukhh2913-42-81 00:06:00 Test Item Value Reference Range Interpretation Comments ABO grouping (test code O = 883-9) Rh type (test code = POS 74285-7) Antibody screen (gel) POS Result s called to (test code = 890-4) Cristal oMntes , RN 06/18/19 at 00: 05 with readback.Specim en sent to [facility] for antibo dy identification. Allow 4-6 hours for dani tible blood if needed . [place] PentecostalismComprehensive metabolic thnml0326-09-47 23:47:48 Test Item Value Reference Range Interpretation Comments Sodium (test code = 137 135- 148 mEq/L 2951-2) Potassium (test code = 5.7 3.5- 5.0 mEq/L H Spe cimen slightly 2823-3) hemolyzed. Interpret resul ts accordingly. Chloride (test code = 107 98- 112 mEq/L 2075-0) CO2 (test code = 8-9) 22 24- 31 mEq/L L Anion gap (test code = 8@ANIO 7- 15 mEq/L 81766-9) BUN (test code = 3094-0) 11 mg/dL 6-20 Creatinine (test code = 0.60 mg/dL 0.5-0.9 2160-0) Glucose (test code = 90 mg/dL 65-99 2345-7) Calcium (test code = 9.5 mg/dL 8.3-10.2 26972-9) Protein (test code = 8.7 g/dL 6.3-8.3 [...] 1974-2) Lab Interpretation (test Abnormal code = 77594-7) [facility] MethodistPhosphorus wtpdd2423-17-22 23:47:48 Test Item Value Reference Range Interpretation Comments Phosphorus (test code = 2777-1) 4.2 mg/dL 2.4-4.5 [place] MethodistLactic acid axijo3095-25-06 23:30:12 Test Item Value Reference Range Interpretation Comments Lactic acid (test code = 24449-5) 0.7 mmol/L 0.5-2.2 [place] MethodistUrine yzeuovk2912-49-58 22:53:35 Test Item Value Reference Range Interpretation Comments Urine culture (test SEE COMMENT Bacteriu aileen screen code = 0483341) negative. Den MethodistUrinalysis screen and microscopy, with reflex to culture 2019-06-17 22:53:34 Test Item Value Reference Range Interpretation Comments Specimen site (test code = Clean catch 0435935) Color, UA (test code = 5778-6) Yellow Appearance, UA (test code = Clear 5767-9) Specific gravity, UA (test code = 1.012 1.001-1.030 5811-5) pH, UA (test code = 5803-2) 5.0 5.0-9.0 Protein, UA (test code = 49372-7) Negative Negative Glucose, UA (test code = 33471-1) Negative Negative Ketones, UA (test code = 2514-8) Negative Negative Bilirubin, UA (test code = Negative Negative 5770-3) Blood, UA (test code = 5794-3) Small Negative A Nitrite, UA (test code = 5802-4) Negative Negative Urobilinogen, UA (test code = <2.0 <2.0 E.U./dL 67484-0) Leukocyte esterase, UA (test code Negative Negative = 5799-2) Epithelial cells, UA (test code = 2 /HPF 5787-7) Round epithelial cells, UA (test <1 0- 5 /HPF code = 01633-0) WBC, UA (test code = 5821-4) 2 0- 4 /HPF RBC, UA (test code = 94939-3) 3 0- 5 /HPF Bacteria, UA (test code = Few None seen 94108-1) Yeast, UA (test code = 26349-7) None seen Yeast with pseudohyphae, UA (test None seen code = 98200-2) Hyaline casts, UA (test code = 0-2 /LPF 5796-8) Lab Interpretation (test code = Abnormal 45600-8) [place] arm [id number] 22:10:00Charlee Norton NP-C 06/17/2019 10:32 PMLeft daryn midlineDate/Time: 06/17/2019 10:10 PMPerformed by: Charlee Norton NP-CAuthorized by: Charlee Norton QUILLER HAND-C Consent: Consent obtained: Verbal Consent given by: [...] tolerance of procedure: Tolerated well, no immediate complicationsSaint Louis MethodistXR Chest 1 Vw [id number] 21:15:42Hm Interface, Radiology Results Incoming - 06/17/2019 9:18 PM CDTEXAMINATION: XR CHEST 1 VW PORTABLECLINICAL HISTORY: ICU pt stable with no clinical status changesCOMPARISON: NoneIMPRESSION:1. Thecardiac silhouette is mildly enlarged. Vasculature is within normal limits.2. There is no confluent i nfiltrate or effusion.3. Portacatheter tip is in the SVC. There is no acute osseous pathology.[facility]-[id number] MethodistCT, CHEST WITH IV CONTRAST- PE TEST [id number] 09:54:00FINAL REPORT INDICATION: Acute chest pain. COMPARISON:Chest [...] MDReport Verified Date/Time: 01/08/2019 09:54:01 Reading Location: [facility] C013Y CT Body Reading Room CREATINE KINASE (CK)2019-01-08 02:25:00 Test Item Value Reference Range Interpretation Comments CREATINE KINASE TOTAL (BEAKER) (test 7 U/L 29-200 L code = 380) TROPONIN [id number] 01:38:00 Test Item Value Reference Range Interpretation [...] acidosis, acute neurological disease, and persistent tachyarrhythmia.TROPONIN [id number] 19:01:00 Test Item Value Reference Range Interpretation [...] Interpretation Comments CREATINE KINASE TOTAL (BEAKER) (test 11 U/L 29-200 L code = 380) RAD, CHEST, 1 VIEW, NON [id number] 08:40:00Reason for exam:->Shortness of BreathShould this be [...] osteopenic for patient's stated age. Signed: Mckenzie Yeepjocelyn Verified Date/Time: 01/07/201908:40:21 Reading Location: [facility] Radiology Reading Room CBC W/PLT COUNT & AUTO [id number] 12:52:00 Test Item Value Reference Range Interpretation [...] Received comment: User comments: Slide comments:BASIC METABOLIC [id number] 07:32:00 Test Item Value Reference Range Interpretation [...] Specimen slightly ictericCBC W/PLT COUNT & AUTO [id number] 06:02:00 Test Item Value Reference Range Interpretation [...] (BEAKER) (test code = 2801) BASIC METABOLIC [id number] 06:02:00 Test Item Value Reference Range Interpretation [...] DIALYSIS PATIEN TS. Specimen slightly ictericBASIC METABOLIC [id number] 09:02:00 Test Item Value Reference Range Interpretation [...] Specimen slightly ictericCBC W/PLT COUNT & AUTO [id number] 07:17:00 Test Item Value Reference Range Interpretation [...] Slide comments:CBC WITH PLATELET COUNT + MANUAL [id number] 10:36:00 Test Item Value Reference Range Interpretation [...] Received comment: User comments: Slide comments:BASIC METABOLIC [id number] 08:47:00 Test Item Value Reference Range Interpretation [...] DIALYSIS PATIEN TS. Specimen slightly ictericHEMOGLOBIN AND [id number] 12:05:00 Test Item Value Reference Range Interpretation Comments HEMOGLOBIN (BEAKER) (test code = 5.5 GM/DL 11.2-15.7 LL 410) HEMATOCRIT (BEAKER) (test code = 17.1 % 34.1-44.9 L 411) CBC W/PLT COUNT & AUTO [id number] 09:09:00 Test Item Value Reference Range Interpretation [...] Received comment: User comments: Slide comments:BASIC METABOLIC [id number] 06:17:00 Test Item Value Reference Range Interpretation [...] 13.5 % 0.3-2.3 H RETICA) COMPREHENSIVE METABOLIC [id number] 14:26:00 Test Item Value Reference Range Interpretation [...] TOTAL (test code = ALKP) CBC W/AUTO [id number] 14:15:00 Test Item Value Reference Range Interpretation [...] REQUIRED (test YES code = MDIFF) WBC [id number] 14:15:00 Test Item Value Reference Range Interpretation [...] 18.7 % 0.3-2.3 H RETICA) BASIC METABOLIC [id number] 07:41:00 Test Item Value Reference Range Interpretation [...] 8.8 mg/dL 8.0-10.5 N CA) CBC W/AUTO [id number] 06:18:00 Test Item Value Reference Range Interpretation [...] code = % 0.3-2.3 RETICA) CBC W/AUTO [id number] 06:18:00 Test Item Value Reference Range Interpretation [...] REQUIRED (test YES code = MDIFF) WBC [id number] 06:18:00 Test Item Value Reference Range Interpretation Comments ANISOCYTOSIS (test code = ANISO) PLATELET ESTIMATE (test code = THOUSAND ADEQUATE PLTEST) RETIC COUNT (AUTOMATED)2018-12-03 06:18:00 Test Item Value Reference Range Interpretation Comments RETIC COUNT (AUTOMATED) (test code = 18.7 % 0.3-2.3 H RETICA) CBC W/AUTO [id number] 06:18:00 Test Item Value Reference Range Interpretation [...] REQUIRED (test YES code = MDIFF) WBC [id number] 06:18:00 Test Item Value Reference Range Interpretation Comments ANISOCYTOSIS (test code = ANISO) PLATELET ESTIMATE (test code = THOUSAND ADEQUATE PLTEST) RETIC COUNT (AUTOMATED)2018-12-03 06:18:00 Test Item Value Reference Range Interpretation Comments RETIC COUNT (AUTOMATED) (test code = 18.7 % 0.3-2.3 H RETICA) CBC W/AUTO [id number] 13:36:00 Test Item Value Reference Range Interpretation [...] REQUIRED (test YES code = MDIFF) WBC [id number] 13:36:00 Test Item Value Reference Range Interpretation [...] 0.3-2.3 H RETICA) - NM BONE 3 [id number] 13:05:00 FAX: Shankra Odlel I [phone] [place]: St: [facility] FAX: Yoly Falcon MD [phone] Name: BEVERLY OSWALDYAZMIN [facility] : 1980 Age/S: 38/F [address] [place] [address] Unit #: [id number] Loc: [address] [place] [address] Phys: Yoly Kang MD Acct: G [id number] Dis Date: Status: ADM IN PHONE #: [phone] Exam Date: 12/02/2018 1059 FAX #: [phone] Reason: OM RT FOOT EXAMS: CPT CODE: [id number] NM BONE 3 PHASE 48068 TRIPLE PHASEBONE SCAN: HISTORY: Right foot osteomyelitis. [...] Technologist: BALAJI Priest (N)(CT);... Trnscrd Date/Time/By: 12/02/2018 (5039) : By: [facility].VGE/[facility].VGE Orig Print D/T: S: 12/02/2018 (9565) PAGE 1 Signed ReportBAPTIST HEALTH [facility]EXINGTON W/AUTO [id number] 11:57:00 Test Item Value Reference Range Interpretation [...] REQUIRED (test YES code = MDIFF) WBC [id number] 11:57:00 Test Item Value Reference Range Interpretation [...] code = % 0.3-2.3 RETICA) CBC W/AUTO [id number] 11:52:00 Test Item Value Reference Range Interpretation [...] REQUIRED (test YES code = MDIFF) WBC [id number] 11:52:00 Test Item Value Reference Range Interpretation Comments ANISOCYTOSIS (test code = ANISO) PLATELET ESTIMATE (test code = THOUSAND ADEQUATE PLTEST) RETIC COUNT (AUTOMATED)2018-12-02 11:52:00 Test Item Value Reference Range Interpretation Comments RETIC COUNT (AUTOMATED) (test code = % 0.3-2.3 RETICA) CBC W/AUTO [id number] 11:52:00 Test Item Value Reference Range Interpretation [...] REQUIRED (test YES code = MDIFF) WBC [id number] 11:52:00 Test Item Value Reference Range Interpretation Comments ANISOCYTOSIS (test code = ANISO) PLATELET ESTIMATE (test code = THOUSAND ADEQUATE PLTEST) RETIC COUNT (AUTOMATED)2018-12-02 11:52:00 Test Item Value Reference Range Interpretation Comments RETIC COUNT (AUTOMATED) (test code = % 0.3-2.3 RETICA) BASIC METABOLIC [id number] 08:17:00 Test Item Value Reference Range Interpretation [...] 8.9 mg/dL 8.0-10.5 N CA) CBC W/AUTO [id number] 07:16:00 Test Item Value Reference Range Interpretation [...] code = % 0.3-2.3 RETICA) CBC W/AUTO [id number] 09:49:00 Test Item Value Reference Range Interpretation [...] REQUIRED (test YES code = MDIFF) WBC [id number] 09:49:00 Test Item Value Reference Range Interpretation [...] PLTS SEEN PLT AGGREGATES: SLIGHT CBC W/AUTO [id number] 09:36:00 Test Item Value Reference Range Interpretation [...] REQUIRED (test YES code = MDIFF) WBC [id number] 09:36:00 Test Item Value Reference Range Interpretation Comments ANISOCYTOSIS (test code = ANISO) PLATELET ESTIMATE (test code = THOUSAND ADEQUATE PLTEST) CBC W/AUTO [id number] 09:36:00 Test Item Value Reference Range Interpretation [...] REQUIRED (test YES code = MDIFF) WBC [id number] 09:36:00 Test Item Value Reference Range Interpretation Comments ANISOCYTOSIS (test code = ANISO) PLATELET ESTIMATE (test code = THOUSAND ADEQUATE PLTEST) RETIC COUNT (AUTOMATED)2018-12-01 08:02:00 Test Item Value Reference Range Interpretation Comments RETIC COUNT (AUTOMATED) (test code = 24.7 % 0.3-2.3 H RETICA) CBC W/AUTO [id number] 07:55:00 Test Item Value Reference Range Interpretation [...] REQUIRED (test code = MDIFF) BASIC METABOLIC [id number] 07:31:00 Test Item Value Reference Range Interpretation [...] 8.6 mg/dL 8.0-10.5 N CA) CBC W/AUTO [id number] 12:24:00 Test Item Value Reference Range Interpretation [...] REQUIRED (test YES code = MDIFF) WBC [id number] 12:24:00 Test Item Value Reference Range Interpretation [...] 23.3 % 0.3-2.3 H RETICA) CBC W/AUTO [id number] 12:23:00 Test Item Value Reference Range Interpretation [...] REQUIRED (test YES code = MDIFF) WBC [id number] 12:23:00 Test Item Value Reference Range Interpretation [...] code = % 0.3-2.3 RETICA) BASIC METABOLIC [id number] 07:55:00 Test Item Value Reference Range Interpretation [...] 8.6 mg/dL 8.0-10.5 N CA) CBC W/AUTO [id number] 07:44:00 Test Item Value Reference Range Interpretation [...] REQUIRED (test YES code = MDIFF) WBC [id number] 07:44:00 Test Item Value Reference Range Interpretation Comments ANISOCYTOSIS (test code = ANISO) PLATELET ESTIMATE (test code = THOUSAND ADEQUATE PLTEST) RETIC COUNT (AUTOMATED)2018-11-30 07:44:00 Test Item Value Reference Range Interpretation Comments RETIC COUNT (AUTOMATED) (test code = % 0.3-2.3 RETICA) CBC W/AUTO [id number] 07:44:00 Test Item Value Reference Range Interpretation [...] REQUIRED (test YES code = MDIFF) WBC [id number] 07:44:00 Test Item Value Reference Range Interpretation Comments ANISOCYTOSIS (test code = ANISO) PLATELET ESTIMATE (test code = THOUSAND ADEQUATE PLTEST) RETIC COUNT (AUTOMATED)2018-11-30 07:44:00 Test Item Value Reference Range Interpretation Comments RETIC COUNT (AUTOMATED) (test code = % 0.3-2.3 RETICA) HGB [id number] 22:58:00 Test Item Value Reference Range Interpretation Comments HEMOGLOBIN (test code = HGB) 8.1 g/dL 11.0-15.0 L HEMATOCRIT (test code = HCT) 25.1 % 33.0-45.0 L CBC W/AUTO [id number] 11:20:00 Test Item Value Reference Range Interpretation [...] REQUIRED (test YES code = MDIFF) WBC [id number] 11:20:00 Test Item Value Reference Range Interpretation [...] PLTMORPH) - XR FOOT 3 + V [id number] 09:12:00 FAX: Juan Jose Fernandez NP [phone] [place]: St: ADM FAX: Beau Odell [phone] Name: RODRIGO OSWALD [facility] : 1980 Age/S: 38/F [address] [place] [address] Unit #: [id number] Loc: [place] [address] Phys: Juan Jose Fernandez NP Acct: G [id number] Dis Date: Status: ADM IN PHONE #: [phone] Exam Date: 11/29/2018 08 FAX #: [phone] Reason: R/O CELLULITIS/OM EXAMS: CPT CODE: [id number] XR FOOT 3 + [place] RT 24494 Right foot 3views: HISTORY: Cellulitis. FINDINGS: Bony alignment in the foot is satisfactory without fracture or dislocation. No soft tissue foreign body or gas formation. There are no areas of bony destruction or abnormal periosteal reaction to indicate osteomyelitis SL: EG-H at 0912 Reported and signed by: Alessio Salinas M.D. CC: Juan Jose Fernandez QUILLER HAND; Shankar Persaud MD Technologist: [place] Saba RT(R) Trnscrd Date/Time/By: 11/29/2018 (911) : By: Jia Orig Print D/T: S: 11/29/2018 (15) PAGE 1 Signed ReportCBC W/AUTO [id number] 08:43:00 Test Item Value Reference Range Interpretation [...] REQUIRED (test YES code = MDIFF) WBC [id number] 08:43:00 Test Item Value Reference Range Interpretation Comments ANISOCYTOSIS (test code = ANISO) PLATELET ESTIMATE (test code = THOUSAND ADEQUATE PLTEST) CBC W/AUTO [id number] 08:43:00 Test Item Value Reference Range Interpretation [...] REQUIRED (test YES code = MDIFF) WBC [id number] 08:43:00 Test Item Value Reference Range Interpretation Comments ANISOCYTOSIS (test code = ANISO) PLATELET ESTIMATE (test code = THOUSAND ADEQUATE PLTEST) BASIC METABOLIC [id number] 08:20:00 Test Item Value Reference Range Interpretation [...] code = 7.8 mg/dL 8.0-10.5 L CA) [id number] 08:20:00 Test Item Value Reference Range Interpretation Comments PHOSPHOROUS (test code = PHOS) 4.2 mg/dL 2.5-4.9 N [id number] 08:20:00 Test Item Value Reference Range Interpretation Comments MAGNESIUM (test code = MAG) 1.70 mg/dL 1.8-2.4 L UR HCG [id number] 06:20:00 Test Item Value Reference Range Interpretation Comments UR HCG QUAL (test code = HCGQLU) NEGATIVE NEGATIVE URINALYSIS [id number] 06:20:00 Test Item Value Reference Range Interpretation [...] /LPF NONE SEEN COMMENTS: Clean CatchUA CULT [id number] 06:20:00 Test Item Value Reference Range Interpretation [...] ng/mL are obtained. - XR CHEST 1 [id number] 23:30:00 FAX: Na Chauhan DO [place]: St: ADM Name: RODRIGO OSWALD [facility] : 1980 Age/S: 38/F [address] [place] [address] Unit#: [id number] Loc: [place] [address] Phys: Na Chauhan Acct: [id number] Dis Date: Status: ADM IN PHONE #: [phone] Exam Date: 11/28/2018 2318 FAX #: [phone] Reason: fever EXAMS: CPT CODE: [id number] XR CHEST 1 V 67870 EXAM: CR, XR chest one view: 11/28/2018, [...] Garcia M.D. CC: Na Chauhan DO Technologist: Brenda Winter RT(R) Trnscrd Date/Time/By: 11/28/2018 (8160) : By: [email or web address] Orig Print D/T: S: 11/28/2018 (6703) PAGE 1 Signed ReportTROPONIN-I [id number] 23:27:00 Test Item Value Reference Range Interpretation Comments TROPONIN-I RAPID 0.00 ng/mL 0.00-0.08 N Performed b y certified (test code = spreader operator at [facility]) Med [facility]tr Negative: <= 0.0 8 Positive: [...] changes in trop onin levels characteristic of NM. CHEMISTRY 8 [id number] 23:26:00 Test Item Value Reference Range Interpretation [...] ML/MIN (test code = GFRBED) CHEMISTRY 8 [id number] 23:26:00 Test Item Value Reference Range Interpretation Comments ISTAT-SODIUM (test 139 MMOL/L 134-147 N code = NAP) ISTAT-POTASSIUM (test 4.1 MMOL/L 3.4-5.0 N code = KP) ISTAT-CHLORIDE (test 105 MMOL/L 100-108 N Perform ed by code = CLP) certified opera tor at [facility] ISTAT CARBON DIOXIDE 25.0 mmol/L 21-33 N (test code = ISTAT-CO2) ISTAT CALCIUM IONIZED 1.16 MG/DL 1.12-1.32 N (test code = ISTAT-MUKESH) ISTAT-GLUCOSE (test 78 MG/DL 70-110 N code = GLUP) ISTAT-BUN (test code = 6 MG/DL 7-18 L BUNP) BEDSIDE CREATININE 0.4 MG/DL 0.6-1.3 L (test code = CREATBED) GLOMERULAR FILTRATION 229 ML/MIN RATE POC (test code = GFRBED) LACTIC ACID [id number] 23:20:00 Test Item Value Reference Range Interpretation Comments LACTIC ACID POC 0.8 MMOL/L 0.90-1.70 L Performed by certified (test code = LACTP) spreader operator at [facility] HEPATIC FUNCTION [id number] 23:12:00 Test Item Value Reference Range Interpretation [...] 20-125 H code = ALKP) CBC W/AUTO [id number] 23:12:00 Test Item Value Reference Range Interpretation [...] REQUIRED (test YES code = MDIFF) WBC [id number] 23:12:00 Test Item Value Reference Range Interpretation [...] 33.7 % 0.3-2.3 H RETICA) CBC W/AUTO [id number] 23:10:00 Test Item Value Reference Range Interpretation [...] REQUIRED (test YES code = MDIFF) WBC [id number] 23:10:00 Test Item Value Reference Range Interpretation Comments ANISOCYTOSIS (test code = ANISO) PLATELET ESTIMATE (test code = THOUSAND ADEQUATE PLTEST) RETIC COUNT (AUTOMATED)2018-11-28 23:10:00 Test Item Value Reference Range Interpretation Comments RETIC COUNT (AUTOMATED) (test code = 33.7 % 0.3-2.3 H RETICA) CBC W/AUTO [id number] 23:10:00 Test Item Value Reference Range Interpretation [...] REQUIRED (test YES code = MDIFF) WBC [id number] 23:10:00 Test Item Value Reference Range Interpretation Comments ANISOCYTOSIS (test code = ANISO) PLATELET ESTIMATE (test code = THOUSAND ADEQUATE PLTEST) RETIC COUNT (AUTOMATED)2018-11-28 23:10:00 Test Item Value Reference Range Interpretation Comments RETIC COUNT (AUTOMATED) (test code = 33.7 % 0.3-2.3 H RETICA) PROTHROMBIN [id number] 23:07:00 Test Item Value Reference Range Interpretation [...] o prevent recurre nt infarct). THROMBOPLASTIN TIME [id number] 23:07:00 Test Item Value Reference Range Interpretation Comments THROMBOPLASTIN TIME 36.8 Seconds 25.0-39.5 N Ther apeutic PARTIAL (test code = Range: 61.8-83.8 PTT) Sec Effective 09/17/2013 CBC W/AUTO [id number] 22:53:00 Test Item Value Reference Range Interpretation [...] code = 33.7 % 0.3-2.3 H RETICA) [id number] 11:06:00 Test Item Value Reference Range Interpretation Comments HEMOGLOBIN (BEAKER) (test code = 7.1 GM/DL 11.2-15.7 L 410) CBC W/PLT COUNT & AUTO [id number] 09:43:00 Test Item Value Reference Range Interpretation [...] Received comment: User comments: Slide comments:BASIC METABOLIC [id number] 06:18:00 Test Item Value Reference Range Interpretation [...] Specimen slightly ictericCBC W/PLT COUNT & AUTO [id number] 13:29:00 Test Item Value Reference Range Interpretation [...] (CELLAVISION)(BEAKER) 0.15 K/uL 0.00-0.80 (test code = 2840) ATYPICAL LYMPHOCYTES - ABS 0.30 K/uL 0.00-0.00 [...] Received comment: User comments: Slide comments:BASIC METABOLIC [id number] 07:09:00 Test Item Value Reference Range Interpretation [...] PATIEN TS. CBC W/PLT COUNT & AUTO [id number] 12:29:00 Test Item Value Reference Range Interpretation [...] K/uL 0.00-0.00 H (CELLAVISION)(BEAKER) (test code = 7368) TOTAL COUNTED (BEAKER) (test code 100 = [...] = 3438) Received comment: User comments: Slide comments:[id number] 07:28:00 Test Item Value Reference Range Interpretation Comments FERRITIN (BEAKER) (test code = 69547 ng/mL 5-275 H 361) BASIC METABOLIC [id number] 06:25:00 Test Item Value Reference Range Interpretation [...] Specimen slightly ictericCBC W/PLT COUNT & AUTO [id number] 10:00:00 Test Item Value Reference Range Interpretation [...] Received comment: User comments: Slide comments:HEPATIC FUNCTION [id number] 05:37:00 Test Item Value Reference Range Interpretation [...] 72 U/L 6-55 H 347) COMPREHENSIVE METABOLIC [id number] 05:37:00 Test Item Value Reference Range Interpretation [...] PATIEN TS. CBC W/PLT COUNT & AUTO [id number] 11:21:00 Test Item Value Reference Range Interpretation [...] HAD TWO (BEAKER) (test code = UNITS LRBC'S 753) [id number] MEAN CORPUSCULAR 31.8 pg 25.6-32.2 HEMOGLOBIN (BEAKER) [...] Received comment: User comments: Slide comments:BASIC METABOLIC [id number] 06:23:00 Test Item Value Reference Range Interpretation [...] DIALYSIS PATIEN TS. Specimen slightly ictericHEPATIC FUNCTION [id number] 06:23:00 Test Item Value Reference Range Interpretation [...] 6-55 H 347) Specimen slightly ictericBASIC METABOLIC [id number] 08:14:00 Test Item Value Reference Range Interpretation [...] DIALYSIS PATIEN TS. Specimen slightly ictericHEPATIC FUNCTION [id number] 08:14:00 Test Item Value Reference Range Interpretation [...] comments: Slide comments:CBC W/PLT COUNT & AUTO [id number] 02:38:00 Test Item Value Reference Range Interpretation [...] = 413) CBC W/PLT COUNT & AUTO [id number] 12:02:00 Test Item Value Reference Range Interpretation [...] Received comment: User comments: Slide comments:BASIC METABOLIC [id number] 06:09:00 Test Item Value Reference Range Interpretation [...] comments: Slide comments:CBC W/PLT COUNT & AUTO [id number] 13:33:00 Test Item Value Reference Range Interpretation [...] (BEAKER) (test code = 413) BASIC METABOLIC [id number] 07:19:00 Test Item Value Reference Range Interpretation [...] PATIEN TS. CBC W/PLT COUNT & AUTO [id number] 14:36:00 Test Item Value Reference Range Interpretation [...] code 2+ moderate = 767) BASIC METABOLIC [id number] 06:59:00 Test Item Value Reference Range Interpretation [...] PATIEN TS. CBC W/PLT COUNT & AUTO [id number] 12:27:00 Test Item Value Reference Range Interpretation [...] Received comment: User comments: Slide comments:BASIC METABOLIC [id number] 07:44:00 Test Item Value Reference Range Interpretation [...] PATIEN TS. CBC W/PLT COUNT & AUTO [id number] 13:29:00 Test Item Value Reference Range Interpretation [...] Received comment: User comments: Slide comments:BASIC METABOLIC [id number] 05:38:00 Test Item Value Reference Range Interpretation [...] PATIEN TS. CBC W/PLT COUNT & AUTO [id number] 14:02:00 Test Item Value Reference Range Interpretation [...] code 2+ moderate = 767) BASIC METABOLIC [id number] 07:22:00 Test Item Value Reference Range Interpretation [...] Specimen slightly ictericCBC W/PLT COUNT & AUTO [id number] 06:46:00 Test Item Value Reference Range Interpretation [...] Received comment: User comments: Slide comments:BASIC METABOLIC [id number] 06:15:00 Test Item Value Reference Range Interpretation [...] APPLICABLE FOR DIALYSIS PATIEN TS. URINALYSIS W/ [id number] 20:17:00 Test Item Value Reference Range Interpretation [...] 516) SOURCE(BEAKER) (test code = Urine, Voided 0830) CBC W/PLT COUNT & AUTO [id number] 11:18:00 Test Item Value Reference Range Interpretation [...] Received comment: User comments: Slide comments:BASIC METABOLIC [id number] 06:15:00 Test Item Value Reference Range Interpretation [...] PATIEN TS. CBC W/PLT COUNT & AUTO [id number] 15:02:00 Test Item Value Reference Range Interpretation [...] code 1+ few = 767) BASIC METABOLIC [id number] 09:27:00 Test Item Value Reference Range Interpretation [...] S NOT APPLICABLE FOR DIALYSIS PATIEN TS. [id number] 17:59:00 Test Item Value Reference Range Interpretation Comments FERRITIN (BEAKER) (test code = 32945 ng/mL 5-275 H 361) CBC W/PLT COUNT & AUTO [id number] 17:20:00 Test Item Value Reference Range Interpretation [...] H (BEAKER) (test code = 413) RETICULOCYTE [id number] 17:20:00 Test Item Value Reference Range Interpretation [...] 125-220 H code = 635) BASIC METABOLIC [id number] 17:04:00 Test Item Value Reference Range Interpretation [...] DIALYSIS PATIEN TS. ANTI-MITOCHONDRIAL AB, REFLEX TO [id number] 11:03:00 Test Item Value Reference Range Interpretation Comments SCAN RESULT (test code = 8152793) CALCIUM, [id number] 07:05:00 Test Item Value Reference Range Interpretation Comments CALCIUM IONIZED (BEAKER) (test 1.10 mmol/L 1.12-1.27 L code = 698) PH, BLOOD (BEAKER) (test code = 7.30 1810) [id number] 06:22:00 Test Item Value Reference Range Interpretation Comments PHOSPHORUS (BEAKER) (test code = 4.7 mg/dL 2.3-4.7 604) [id number] 06:22:00 Test Item Value Reference Range Interpretation Comments MAGNESIUM (BEAKER) (test code = 1.4 mg/dL 1.6-2.6 L 627) BASIC METABOLIC [id number] 06:22:00 Test Item Value Reference Range Interpretation [...] U/L 29-200 L code = 380) URIC [id number] 08:01:00 Test Item Value Reference Range Interpretation Comments URIC ACID (BEAKER) (test code = 4.8 mg/dL 2.6-7.2 773) [id number] 08:01:00 Test Item Value Reference Range Interpretation Comments MAGNESIUM (BEAKER) (test code = 1.5 mg/dL 1.6-2.6 L 627) [id number] 08:01:00 Test Item Value Reference Range Interpretation Comments PHOSPHORUS (BEAKER) (test code = 5.3 mg/dL 2.3-4.7 H 604) BASIC METABOLIC [id number] 08:01:00 Test Item Value Reference Range Interpretation [...] 489 U/L 125-220 H code = 635) [id number] 18:07:00 Test Item Value Reference Range Interpretation Comments POTASSIUM (BEAKER) (test code = 5.5 meq/L 3.5-5.1 H 379) Call if K > 5.4 to renal 523 [id number], [id number] 06:51:00 Test Item Value Reference Range Interpretation Comments CALCIUM IONIZED (BEAKER) (test 1.08 mmol/L 1.12-1.27 L code = 698) PH, BLOOD (BEAKER) (test code = 7.35 1810) CBC W/PLT COUNT & AUTO [id number] 06:25:00 Test Item Value Reference Range Interpretation [...] 0-1 PERCENT (BEAKER) (test code = 2801) [id number] 05:35:00 Test Item Value Reference Range Interpretation Comments PHOSPHORUS (BEAKER) (test code = 4.4 mg/dL 2.3-4.7 604) [id number] 05:35:00 Test Item Value Reference Range Interpretation Comments MAGNESIUM (BEAKER) (test code = 1.3 mg/dL 1.6-2.6 L 627) BASIC METABOLIC [id number] 05:35:00 Test Item Value Reference Range Interpretation [...] S NOT APPLICABLE FOR DIALYSIS PATIEN TS. [id number] 16:19:00 Test Item Value Reference Range Interpretation Comments POTASSIUM (BEAKER) (test code = 5.2 meq/L 3.5-5.1 H 379) Repeat after 3 hours kayexalate was given; call result [id number] 2017-11-22 12:53:00 Test Item Value Reference Range Interpretation Comments SODIUM (BEAKER) (test code = 381) 137 meq/L 136-145 POTASSIUM (BEAKER) (test code = 5.4 meq/L 3.5-5.1 H 379) CHLORIDE (BEAKER) (test code = 382) 100 meq/L 98-107 CO2 (BEAKER) (test code = 355) 30 meq/L 22-29 H Call results [id number] 11:14:00 Test Item Value Reference Range Interpretation Comments POTASSIUM (BEAKER) (test code = 5.8 meq/L 3.5-5.1 H 379) [id number] 06:40:00 Test Item Value Reference Range Interpretation Comments PHOSPHORUS (BEAKER) (test code = 5.4 mg/dL 2.3-4.7 H 604) [id number] 06:40:00 Test Item Value Reference Range Interpretation Comments MAGNESIUM (BEAKER) (test code = 1.6 mg/dL 1.6-2.6 627) CALCIUM, [id number] 06:27:00 Test Item Value Reference Range Interpretation Comments CALCIUM IONIZED (BEAKER) (test 0.99 mmol/L 1.12-1.27 L code = 698) PH, BLOOD (BEAKER) (test code = 7.43 1810) CBC W/PLT COUNT & AUTO [id number] 05:53:00 Test Item Value Reference Range Interpretation [...] (BEAKER) (test code = 2801) BASIC METABOLIC [id number] 17:35:00 Test Item Value Reference Range Interpretation [...] S NOT APPLICABLE FOR DIALYSIS PATIEN TS. [id number] 06:33:00 Test Item Value Reference Range Interpretation Comments PHOSPHORUS (BEAKER) (test code = 5.3 mg/dL 2.3-4.7 H 604) [id number] 06:33:00 Test Item Value Reference Range Interpretation Comments MAGNESIUM (BEAKER) (test code = 1.6 mg/dL 1.6-2.6 627) BASIC METABOLIC [id number] 06:33:00 Test Item Value Reference Range Interpretation [...] NOT APPLICABLE FOR DIALYSIS PATIEN TS. CALCIUM, [id number] 06:22:00 Test Item Value Reference Range Interpretation Comments CALCIUM IONIZED (BEAKER) (test 1.18 mmol/L 1.12-1.27 code = 698) PH, BLOOD (BEAKER) (test code = 7.32 1810) B-TYPE NATRIURETIC FACTOR (BNP)2017-11-21 06:19:00 Test Item Value Reference Range Interpretation Comments B-TYPE NATRIURETIC PEPTIDE (BEAKER) 120 pg/mL 0-100 H (test code = 700) CBC W/PLT COUNT & AUTO [id number] 05:59:00 Test Item Value Reference Range Interpretation [...] (BEAKER) (test code = 2801) BLOOD GAS, [id number] 07:22:00 Test Item Value Reference Range Interpretation [...] (test code = 1819) 21.0 % CALCIUM, [id number] 07:20:00 Test Item Value Reference Range Interpretation Comments CALCIUM IONIZED (BEAKER) (test 1.10 mmol/L 1.12-1.27 L code = 698) PH, BLOOD (BEAKER) (test code = 7.33 1810) [id number] 07:18:00 Test Item Value Reference Range Interpretation Comments PHOSPHORUS (BEAKER) (test code = 4.8 mg/dL 2.3-4.7 H 604) [id number] 07:18:00 Test Item Value Reference Range Interpretation Comments MAGNESIUM (BEAKER) (test code = 1.6 mg/dL 1.6-2.6 627) BASIC METABOLIC [id number] 07:18:00 Test Item Value Reference Range Interpretation [...] PATIEN TS. CBC W/PLT COUNT & AUTO [id number] 07:14:00 Test Item Value Reference Range Interpretation [...] 0-1 PERCENT (BEAKER) (test code = 2801) [id number] 11:18:00 Test Item Value Reference Range Interpretation Comments FERRITIN (BEAKER) (test code = 52915 ng/mL 5-275 H 361) [id number] 07:10:00 Test Item Value Reference Range Interpretation Comments MAGNESIUM (BEAKER) (test code = 2.0 mg/dL 1.6-2.6 627) BASIC METABOLIC [id number] 07:10:00 Test Item Value Reference Range Interpretation [...] H (BEAKER) (test code = 413) BLOOD [id number] 06:00:00 Test Item Value Reference Range Interpretation Comments CULTURE (BEAKER) (test No growth in 5 days code = 1095) ANTI-NUCLEAR ANTIBODY (AMARILYS)2017-11-17 14:21:00 Test Item Value Reference Range Interpretation Comments ANTI-NUCLEAR ANTIBODY (AMARILYS) (BEAKER) Positive Negative A (test code = 418) AMARILYS TITER AND [id number] 14:21:00 Test Item Value Reference Range Interpretation Comments AMARILYS TITER (BEAKER) :160 (test code = 1541) AMARILYS PATTERN (BEAKER) Multiple nuclear dots (test code = 1781) pattern [id number] 07:16:00 Test Item Value Reference Range Interpretation Comments PHOSPHORUS (BEAKER) (test code = 4.5 mg/dL 2.3-4.7 604) [id number] 07:16:00 Test Item Value Reference Range Interpretation Comments MAGNESIUM (BEAKER) (test code = 1.4 mg/dL 1.6-2.6 L 627) BASIC METABOLIC [id number] 07:16:00 Test Item Value Reference Range Interpretation [...] APPLICABLE FOR DIALYSIS PATIEN TS. HEPATIC FUNCTION [id number] 07:16:00 Test Item Value Reference Range Interpretation [...] code = 46 U/L 6-55 347) CALCIUM, [id number] 06:50:00 Test Item Value Reference Range Interpretation Comments CALCIUM IONIZED (BEAKER) (test 1.11 mmol/L 1.12-1.27 L code = 698) PH, BLOOD (BEAKER) (test code = 7.34 1810) CBC W/PLT COUNT & AUTO [id number] 06:09:00 Test Item Value Reference Range Interpretation [...] (BEAKER) (test code = 2801) HEPATITIS PANEL, [id number] 14:32:00 Test Item Value Reference Range Interpretation Comments HEPATITIS A IGM ANTIBODY (BEAKER) Nonreactive Nonreactive (test code = 498) HEPATITIS B CORE IGM ANTIBODY Nonreactive Nonreactive (BEAKER) (test code = 645) HEPATITIS C ANTIBODY (BEAKER) Nonreactive Nonreactive (test code = 367) HEPATITIS B SURFACE ANTIGEN (2) Nonreactive Nonreactive (BEAKER) (test code = 2585) RAD, MANDIBLE, LESS THAN 4 [id number] 12:28:00Reason for exam:->fever, dental cariesFINAL REPORT Mandible [...] cells are well aerated. Signed: Chevy Cain MDReport Verified Date/Time: 11/16/2017 12:28:43 Reading Location: [facility] Reading Room RAD, CHEST, 2 [id number] 10:47:00Reason for exam:->fever, chest painFINAL REPORT Chest [...] MDReport Verified Date/Time: 11/16/2017 10:47:19 Reading Location: [facility] Reading Room URINE CULTURE 2017-11-16 09:53:00 Test Item Value Reference Range Interpretation Comments CULTURE (BEAKER) (test >100,000 col/mL skin code = 1095) valentino CBC W/PLT COUNT & AUTO [id number] 09:20:00 Test Item Value Reference Range Interpretation [...] (test code 2+ moderate = 480) CALCIUM, [id number] 07:28:00 Test Item Value Reference Range Interpretation Comments CALCIUM IONIZED (BEAKER) (test 0.97 mmol/L 1.12-1.27 L code = 698) PH, BLOOD (BEAKER) (test code = 7.45 1810) [id number] 05:48:00 Test Item Value Reference Range Interpretation Comments PHOSPHORUS (BEAKER) (test code = 4.8 mg/dL 2.3-4.7 H 604) [id number] 05:48:00 Test Item Value Reference Range Interpretation Comments MAGNESIUM (BEAKER) (test code = 1.6 mg/dL 1.6-2.6 627) BASIC METABOLIC [id number] 05:48:00 Test Item Value Reference Range Interpretation [...] APPLICABLE FOR DIALYSIS PATIEN TS. URINALYSIS W/ [id number] 19:14:00 Test Item Value Reference Range Interpretation [...] 516) SOURCE(BEAKER) (test code = Urine, Voided 3655) [id number] 13:26:00 Test Item Value Reference Range Interpretation Comments LIPASE (BEAKER) (test code = 749) 95 U/L 8-78 H RAD, ABDOMEN/KUB, 1 VIEW [id number] 12:43:00Reason for exam:->abdominal painFINAL REPORT Abdomen one [...] MDReport Verified Date/Time: 11/15/2017 12:43:04 Reading Location: [facility] Reading Room CBC W/PLT COUNT & AUTO [id number] 10:00:00 Test Item Value Reference Range Interpretation [...] MDReport Verified Date/Time: 11/15/2017 09:03:15 Reading Location: [address] Ultrasound Reading Room CBC W/PLT COUNT & AUTO [id number] 08:32:00 Test Item Value Reference Range Interpretation [...] % 0-1 PERCENT (BEAKER) (test code = 2802) [id number] 06:16:00 Test Item Value Reference Range Interpretation Comments PHOSPHORUS (BEAKER) (test code = 4.6 mg/dL 2.3-4.7 604) [id number] 06:16:00 Test Item Value Reference Range Interpretation Comments MAGNESIUM (BEAKER) (test code = 1.6 mg/dL 1.6-2.6 627) BASIC METABOLIC [id number] 06:16:00 Test Item Value Reference Range Interpretation [...] APPLICABLE FOR DIALYSIS PATIEN TS. HEPATIC FUNCTION [id number] 06:16:00 Test Item Value Reference Range Interpretation [...] code = 34 U/L 6-55 347) CALCIUM, [id number] 06:00:00 Test Item Value Reference Range Interpretation Comments CALCIUM IONIZED (BEAKER) (test 0.93 mmol/L 1.12-1.27 L code = 698) PH, BLOOD (BEAKER) (test code = 7.52 1810) URINALYSIS W/ [id number] 18:32:00 Test Item Value Reference Range Interpretation [...] 516) SOURCE(BEAKER) (test code = Urine, Voided 9716) CALCIUM, [id number] 07:19:00 Test Item Value Reference Range Interpretation Comments CALCIUM IONIZED (BEAKER) (test 1.03 mmol/L 1.12-1.27 L code = 698) PH, BLOOD (BEAKER) (test code = 7.40 1810) CBC W/PLT COUNT & AUTO [id number] 06:26:00 Test Item Value Reference Range Interpretation [...] 0-1 PERCENT (BEAKER) (test code = 2801) [id number] 06:21:00 Test Item Value Reference Range Interpretation Comments PHOSPHORUS (BEAKER) (test code = 4.3 mg/dL 2.3-4.7 604) [id number] 06:21:00 Test Item Value Reference Range Interpretation Comments MAGNESIUM (BEAKER) (test code = 2.1 mg/dL 1.6-2.6 627) BASIC METABOLIC [id number] 06:21:00 Test Item Value Reference Range Interpretation [...] pg/mL 0-100 H (test code = 700) [id number] 07:26:00 Test Item Value Reference Range Interpretation Comments PHOSPHORUS (BEAKER) (test code = 4.6 mg/dL 2.3-4.7 604) [id number] 07:26:00 Test Item Value Reference Range Interpretation Comments MAGNESIUM (BEAKER) (test code = 1.6 mg/dL 1.6-2.6 627) BASIC METABOLIC [id number] 07:26:00 Test Item Value Reference Range Interpretation [...] PATIEN TS. CBC W/PLT COUNT & AUTO [id number] 07:23:00 Test Item Value Reference Range Interpretation [...] PERCENT (BEAKER) (test code = 2801) CALCIUM, [id number] 07:08:00 Test Item Value Reference Range Interpretation Comments CALCIUM IONIZED (BEAKER) (test 1.03 mmol/L 1.12-1.27 L code = 698) PH, BLOOD (BEAKER) (test code = 7.38 1810) CBC W/PLT COUNT & AUTO [id number] 08:23:00 Test Item Value Reference Range Interpretation [...] (BEAKER) (test code = 1+ few 480) [id number] 08:11:00 Test Item Value Reference Range Interpretation Comments PHOSPHORUS (BEAKER) (test code = 4.3 mg/dL 2.3-4.7 604) [id number] 08:11:00 Test Item Value Reference Range Interpretation Comments MAGNESIUM (BEAKER) (test code = 1.3 mg/dL 1.6-2.6 L 627) BASIC METABOLIC [id number] 08:11:00 Test Item Value Reference Range Interpretation [...] NOT APPLICABLE FOR DIALYSIS PATIEN TS. CALCIUM, [id number] 07:19:00 Test Item Value Reference Range Interpretation Comments CALCIUM IONIZED (BEAKER) (test 0.98 mmol/L 1.12-1.27 L code = 698) PH, BLOOD (BEAKER) (test code = 7.39 1810) BLOOD [id number] 00:00:00 Test Item Value Reference Range Interpretation Comments CULTURE (BEAKER) (test No growth in 5 days code = 1095) CBC W/PLT COUNT & AUTO [id number] 13:18:00 Test Item Value Reference Range Interpretation [...] (BEAKER) (test code = 1+ few 480) [id number] 08:05:00 Test Item Value Reference Range Interpretation Comments PHOSPHORUS (BEAKER) (test code = 5.0 mg/dL 2.3-4.7 H 604) [id number] 08:05:00 Test Item Value Reference Range Interpretation Comments MAGNESIUM (BEAKER) (test code = 1.6 mg/dL 1.6-2.6 627) BASIC METABOLIC [id number] 08:05:00 Test Item Value Reference Range Interpretation [...] NOT APPLICABLE FOR DIALYSIS PATIEN TS. CALCIUM, [id number] 06:38:00 Test Item Value Reference Range Interpretation Comments CALCIUM IONIZED (BEAKER) (test 1.07 mmol/L 1.12-1.27 L code = 698) PH, BLOOD (BEAKER) (test code = 7.31 1810) CBC W/PLT COUNT & AUTO [id number] 14:53:00 Test Item Value Reference Range Interpretation [...] code 1+ few = 480) BASIC METABOLIC [id number] 08:54:00 Test Item Value Reference Range Interpretation [...] S NOT APPLICABLE FOR DIALYSIS PATIEN TS. [id number] 08:54:00 Test Item Value Reference Range Interpretation Comments MAGNESIUM (BEAKER) (test code = 1.5 mg/dL 1.6-2.6 L 627) [id number] 08:54:00 Test Item Value Reference Range Interpretation Comments PHOSPHORUS (BEAKER) (test code = 4.5 mg/dL 2.3-4.7 604) COMPREHENSIVE METABOLIC [id number] 08:54:00 Test Item Value Reference Range Interpretation [...] NOT APPLICABLE FOR DIALYSIS PATIEN TS. CALCIUM, [id number] 07:21:00 Test Item Value Reference Range Interpretation Comments CALCIUM IONIZED (BEAKER) (test 1.04 mmol/L 1.12-1.27 L code = 698) PH, BLOOD (BEAKER) (test code = 7.39 1810) CBC W/PLT COUNT & AUTO [id number] 12:10:00 Test Item Value Reference Range Interpretation [...] (test code 1+ few = 480) CALCIUM, [id number] 07:44:00 Test Item Value Reference Range Interpretation Comments CALCIUM IONIZED (BEAKER) (test 1.16 mmol/L 1.12-1.27 code = 698) PH, BLOOD (BEAKER) (test code = 7.25 1810) B-TYPE NATRIURETIC FACTOR (BNP)2017-11-09 07:43:00 Test Item Value Reference Range Interpretation Comments B-TYPE NATRIURETIC PEPTIDE (BEAKER) 903 pg/mL 0-100 H (test code = 700) [id number] 07:27:00 Test Item Value Reference Range Interpretation Comments PHOSPHORUS (BEAKER) (test code = 4.4 mg/dL 2.3-4.7 604) [id number] 07:27:00 Test Item Value Reference Range Interpretation Comments MAGNESIUM (BEAKER) (test code = 1.7 mg/dL 1.6-2.6 627) COMPREHENSIVE METABOLIC [id number] 07:27:00 Test Item Value Reference Range Interpretation [...] APPLICABLE FOR DIALYSIS PATIEN TS. BASIC METABOLIC [id number] 07:27:00 Test Item Value Reference Range Interpretation [...] PATIEN TS. RAD, CHEST, 1 VIEW, NON [id number] 20:41:00Reason for exam:->edemaShould this be performed at [...] Muhammadeport Verified Date/Time: 11/08/2017 20:41:24 Reading Location: [address] Reading Room EOSINOPHIL SMEAR, [id number] 12:49:00 Test Item Value Reference Range Interpretation Comments EOSINOPHIL SMEAR, URINE (BEAKER) No EOS seen No EOS seen (test code = 1851) CBC W/PLT COUNT & AUTO [id number] 10:40:00 Test Item Value Reference Range Interpretation [...] (test code 1+ few = 480) CT, [id number] 08:29:00FINAL REPORT HISTORY : Abdominal pain, unspecified [...] MDReport Verified Date/Time: 11/08/2017 08:29:54 Reading [facility] [place] [id number] Electronically signed by: MOON MUNIZ M.D. on11/08/2017 08:29 AMBASIC METABOLIC [id number] 08:14:00 Test Item Value Reference Range Interpretation [...] APPLICABLE FOR DIALYSIS PATIEN TS. COMPREHENSIVE METABOLIC [id number] 08:14:00 Test Item Value Reference Range Interpretation [...] APPLICABLE FOR DIALYSIS PATIEN TS. PROTEIN, RANDOM [id number] 07:49:00 Test Item Value Reference Range Interpretation Comments PROTEIN, URINE (BEAKER) (test code = 24 mg/dL 0-14 H 1569) CREATININE, RANDOM [id number] 07:47:00 Test Item Value Reference Range Interpretation Comments CREATININE URINE (BEAKER) (test 46.0 mg/dL code = 375) Reference Range: No NormalsSODIUM, RANDOM [id number] 07:47:00 Test Item Value Reference Range Interpretation Comments SODIUM URINE (BEAKER) (test code = 65 meq/L 243) Reference Range: No NormalsU/S, ABDOMINAL, [id number] 19:58:00Reason for exam:->GRAYSON, abdominal painShould this be [...] MDReport Verified Date/Time: 11/07/2017 19:58:17 Reading Location: [address] Consult Reading Room LACTIC ACID, VENOUS, WHOLE [id number] 16:11:00 Test Item Value Reference Range Interpretation Comments LACTATE BLOOD VENOUS 0.9 mmol/L 0.5-2.2 Specime n slightly (2) (BEAKER) (test hemolyzed code = 2872) Effective 12/22/2015: Units/Reference Range ChangeNew: 0.5-2.2 mmol/L Previous: 5-20 mg/dLCBC W/PLT COUNT & AUTO [id number] 10:20:00 Test Item Value Reference Range Interpretation [...] code 1+ few = 480) BASIC METABOLIC [id number] 06:28:00 Test Item Value Reference Range Interpretation [...] APPLICABLE FOR DIALYSIS PATIEN TS. COMPREHENSIVE METABOLIC [id number] 18:37:00 Test Item Value Reference Range Interpretation [...] Specimen slightly ictericCBC W/PLT COUNT & AUTO [id number] 14:59:00 Test Item Value Reference Range Interpretation [...] code 3+ many = 767) BASIC METABOLIC [id number] 09:37:00 Test Item Value Reference Range Interpretation [...] DIALYSIS PATIEN TS. Specimen slightly ictericURINALYSIS W/ [id number] 06:22:00 Test Item Value Reference Range Interpretation [...] Urine, Clean Catch = 2795) BASIC METABOLIC [id number] 10:56:00 Test Item Value Reference Range Interpretation [...] Specimen slightly ictericCBC W/PLT COUNT & AUTO [id number] 09:17:00 Test Item Value Reference Range Interpretation [...] = 480) CREATINE KINASE (CK), TOTAL AND [id number] 22:01:00 Test Item Value Reference Range Interpretation Comments CREATINE KINASE TOTAL 10 U/L 29-200 L (BEAKER) (test code = 380) CREATINE KINASE-MB 0.1 ng/mL 0.0-6.6 (BEAKER) (test code = 750) CREATINE KINASE-MB INDEX 1.0 % Marlena ble to Calculate (BEAKER) (test code = 395) CK-MB Reference Range:<6.7 Normal6.7-10.0 Borderline>10.0 AbnormalTROPONIN [id number] 21:16:00 Test Item Value Reference Range Interpretation [...] (BEAKER) (test code = 2801) BASIC METABOLIC [id number] 07:06:00 Test Item Value Reference Range Interpretation [...] PATIEN TS. CBC W/PLT COUNT & AUTO [id number] 06:48:00 Test Item Value Reference Range Interpretation [...] code = 1+ few 480) BASIC METABOLIC [id number] 07:33:00 Test Item Value Reference Range Interpretation [...] PATIEN TS. CBC W/PLT COUNT & AUTO [id number] 07:13:00 Test Item Value Reference Range Interpretation [...] = 2801) CBC W/PLT COUNT & AUTO [id number] 16:45:00 Test Item Value Reference Range Interpretation [...] (BEAKER) (test code = 2801) BASIC METABOLIC [id number] 06:17:00 Test Item Value Reference Range Interpretation [...] PATIEN TS. CBC W/PLT COUNT & AUTO [id number] 13:41:00 Test Item Value Reference Range Interpretation [...] (test code 2+ moderate = 480) URINE [id number] 12:19:00 Test Item Value Reference Range Interpretation Comments CULTURE (BEAKER) (test 20-29,000 col/mL skin code = 1095) valentino BASIC METABOLIC [id number] 07:23:00 Test Item Value Reference Range Interpretation [...] APPLICABLE FOR DIALYSIS PATIEN TS. U/S, ABDOMINAL, [id number] 23:52:00Reason for exam:->painShould this be performed at [...] Status post splenectomy and cholecystectomy. Signed: Jamey Gayort Verified Date/Time: 05/30/2017 23:52:25 Reading Location: [facility] Consult Reading Room 11:52 PMCBC W/PLT COUNT & AUTO [id number] 17:30:00 Test Item Value Reference Range Interpretation [...] (BEAKER) (test code = 2801) BASIC METABOLIC [id number] 06:33:00 Test Item Value Reference Range Interpretation [...] PATIEN TS. CBC W/PLT COUNT & AUTO [id number] 13:41:00 Test Item Value Reference Range Interpretation [...] code 2+ moderate = 480) BASIC METABOLIC [id number] 07:38:00 Test Item Value Reference Range Interpretation [...] PATIEN TS. CBC W/PLT COUNT & AUTO [id number] 15:40:00 Test Item Value Reference Range Interpretation [...] code 2+ moderate = 480) URINALYSIS W/ [id number] 15:13:00 Test Item Value Reference Range Interpretation [...] 516) SOURCE(BEAKER) (test code = Urine, Voided 1715) BASIC METABOLIC [id number] 06:26:00 Test Item Value Reference Range Interpretation [...] NOT APPLICABLE FOR DIALYSIS PATIEN TS. CHEM [id number] 07:40:37502Dkpqnggm FoddemyRGPYTNAONQAB4822-43-11 07:40:00 10.8[facility] SgltxfgAMIBCQVSSVRT8819-76-00 07:40:008.4[facility] VNSPACELZMIM9306-34-53 07:40:0027[facility] FmnqsvvJJTFPGMEBRKH9644-48-80 07:40:00 108[facility] MtztonsJKPLQJHZDUJG8702-95-20 07:40:57508Ifzoipqm Roly TPTSATMSNDIH4001-63-56 07:40:004[facility] IvqvrxjGRFCPJLLERMB1321-99-45 07:40:00 82[facility] GczgvjkNEQTYWPOQAPB0717-88-96 07:40:96292Liuzkcri HermannELECTROLYTES 2014-09-11 07:40:000.7[facility] LzutkqvXOAGBWZNSJDS0044-77-59 07:40:003.8[facility] AacbkplGJEPMAPCOL0216-80-13 07:40:0016.5[facility] OeurjazTILDFSRSTH1745-54-69 07:40:0025.5[facility] VmkceqzMLXRSSCRMH5245-19-78 07:40:008.6[facility] Roly QUKPMCTDHQ9296-84-93 07:40:30209Lwzeejja YndcexhYDRSZHBRCW1937-84-62 07:40:00 19.8[facility] DgjwrszSSEOZBDIKX6845-10-75 07:40:006.7[facility] HermannHEMATOLOGY 2014-09-11 07:40:0097.9[facility] CkrqdkiTZVJDCMNYV3356-81-01 07:40:0034.0[facility] XmommogVHKQQQDVVC9020-09-81 07:40:00 Test Item Value Reference Range Interpretation Comments MCH (test code = MCH) 33.3 pg 27.0-31.0 [facility] QfqapkgBJVKFKXQYA6375-67-50 07:40:0014.1[facility] HermannHEMATOLOGY 2014-09-11 07:40:002.02[facility] GVPWJLU9375-12-13 14:01:00 Positive 1(09/10/14 8:01 AM)[facility] [id number] 14:01:00 Negative (09/10/14 8:01 AM)[facility] [id number] 14:01:00 Positive (09/10/14 8:01 AM)[facility] XfhvavqJIEVDAAATM4854-57-41 12:34:006.3 [facility]annCHEM MVSRZ1147-16-03 10:42:00239Ghqxyfrd HermannELECTROLYTES 2014-09-10 10:42:0011.8[facility] CgjsejvMWVUIVLAGIGW7277-27-01 10:42:23109 [facility] MyznmpjNXASVTLKOKWU8041-31-45 10:42:008.3[facility] HermannELECTROLYTES 2014-09-10 10:42:05490Aqwpvkip MabyjqoOUOCDTWJYJGY4523-61-11 10:42:33133Zhmfstxm UxkjcyzRKRRWDULIXIC4396-89-46 10:42:0081[facility] ErztisdVOVFXPODXMWK4726-25-65 10:42:004[facility] UivmifeKMQADMNRGAJF5794-98-94 10:42:000.6[facility] GABYNCDYYCGH4723-28-53 10:42:0023[facility] NalffoqTGRPNLKSELLJ3361-49-83 10:42:00 3.8[facility] UxchpfgIKHEOYOUES8256-19-64 10:42:006.2[facility] HermannHEMATOLOGY 2014-09-10 10:42:0015.9[facility] GadfbkbARSDSJDRNG7639-65-05 10:42:001.85[facility] WevdlmtSPQLVJLYHM2006-99-13 10:42:0018.2[facility] XtecnfaRNPDNNQXQH4714-39-16 10:42:0098.3[facility] YmeolskCDLPGRIYHF9258-09-76 10:42:0025.4[facility] ULHMOSIUZQ4640-35-07 10:42:53114Oxjxxksm MgeorpdQTZPEBBKJP6947-65-79 10:42:00 Test Item Value Reference Range Interpretation Comments MCH (test code = MCH) 33.6 pg 27.0-31.0 [facility] EonpuedJRXFRBEDRK4941-49-39 10:42:0034.2[facility] HermannHEMATOLOGY 2014-09-10 10:42:008.5[facility] AakxbjkOYJZECBVRS8447-41-34 10:42:0015.8[facility] AmtnrjlOCPXDREHFLYC5898-76-50 08:13:0013.7[facility] GoiwpddSLSAYQEWNVYW7034-43-03 08:13:0096[facility] VntrekuNLIGMTNCQWXV3015-93-88 08:13:009.1[facility] NGWSHBQRQYLL9598-90-22 08:13:003.7[facility] UbyymelYFSVSKMCQHJE3029-59-99 08:13:91046Iavrbumw AregpkdBDDSYHRYQLGL4184-84-34 08:13:43352[facility] [place] SZBUNPLBKALY1292-82-79 08:13:000.9[facility] BzrtikrEHPFRDUBKGPF3673-19-09 08:13:006[facility] WmwgcloDYQVBRSRWRUD7697-52-62 08:13:0026[facility] WWUXWHKOXMND9114-03-74 08:13:96728Rbtadzwa HvqtrulIIYXXMIGOG9416-01-34 08:13:00 1-3 per HPF (09/09/14 2:13 AM)[facility] YzleaygRLAVUKUOJB2816-16-17 08:13:00 Moderate *ABN*(09/09/14 2:13 AM)[facility] TqdhreoMKKCKNZWUX3486-24-78 08:13:00 Normal (09/09/14 2:13 AM)[facility] FeyeljnWHNJGWATAF1158-38-38 08:13:00 Test Item Value Reference Range Interpretation Comments Tot Cell Ct (test code = Tot Cell Ct) 100 1 [facility] FmkbqzfPFVXOZDDNW1198-60-24 08:13:000.0[facility] 2014-[facility]09 08:13:0049.0[facility] UyqwshiYSRREYCEIQ4225-14-80 08:13:001+ *ABN*(09/09/14 2:13 AM)[facility] WoqmgulVKJLGJRIYV4027-16-87 08:13:001+ *ABN*(09/09/14 2:13 AM)[facility] GrmotisZRTCBZIBWR6965-03-06 08:13:002[facility] StwcejgJHETVEQBQZ4089-93-55 08:13:000.0[facility] TdptuajIYTLHKIFGW8609-98-84 08:13:003.0[facility] ShodlgiFDPXKZXJJB0733-11-96 08:13:0014.0[facility] R[facility] UZWEPYXCTL5621-46-26 08:13:0034.0[facility] TtgpsceTPYNGXNIFT8524-87-99 08:13:00 0.6[facility] MhokxqiPBUHDSQXGN0556-57-50 08:13:002.7[facility] 2014-09-09 08:13:006.5[facility] HnochouDHIPTTYGBZ4287-24-66 08:13:009.3[facility] KtwjauzZDFDFHQTLL2164-28-83 08:13:0016.6[facility] CtpyoxoIPZYREISPD9975-31-81 08:13:008.3[facility] JnuqrbcBMLISLWZID4389-93-87 08:13:0025.8[facility] YFJECISFUG6236-07-36 08:13:0034.3[facility] DyfzzusONNNYBUYKS2276-68-19 08:13:00 220[facility] VqlkbgtOOMKLYEXJN0988-51-12 08:13:0099.8[facility] 2014-09-09 08:13:0022.7[facility] GysufvfONPROWOGQH8491-92-39 08:13:00 Test Item Value Reference Range Interpretation Comments MCH (test code = MCH) 34.2 pg 27.0-31.0 [facility] FgwynbwRMQFHLTTSK0913-81-00 08:13:0019.0[facility] 2014-09-09 08:13:002.28[facility]
--- OUTSIDE RECORDS SUMMARY | 2020-03-22 13:55 | XMS REPORT | Summary of Care ---
:1980 Author Organization [facility] Address [address] [place] [id number] Care Team Providers Name Role Phone Naeem Guaman Unavailable Thuy Jay MD Primary Care Provider Reason for Visit Reason Comments Notification Encounter Details Date Type Department Care Team Description 03/03/2020 Telephone [facility] Family Medicine Jayson Rucker MD Notification - [address] [place] [address] [place] [address] [phone] Allergies Active Allergy Reactions Severity Noted Date Comments Cel-Zk-Csu-Atropine-Hyosc- Unknown - See 10/01/2014 seizure Scop comments [...] as of this encounter (statuses as of 03/03/2020) Medications Medication Sig Dispensed Refills Start Date [...] as of this encounter (statuses as of 03/03/2020) Active Problems Problem Noted Date Elevated TSH [...] as of this encounter (statuses as of 03/03/2020) Resolved Problems Problem Noted Date Resolved Date Left hand pain 01/07/2020 01/26/2020 Left wrist pain 01/07/2020 01/26/2020 Fall, initial encounter 01/07/2020 01/26/2020 Foot pain, right 11/29/2015 07/08/2017 documented as of this encounter (statuses as of 03/03/2020) Social History Tobacco Use Types Packs/Day Years [...] Treatment Date Type Specialty Care Team Description 04/27/2020 Office Visit Family Medicine Jose Jay MD [address] [place] [address] [phone] Health Maintenance Due Date Last Done Comments PAP SMEAR 2000 Breast Cancer Screening 2019 (MAMMOGRAM) DTaP,Tdap,and Td Vaccines (1 - 03/30/2020 P ostponed from 1990 Tdap) (Refused) PNEUMOCOCCAL 0-64 YEARS COMBINED 03/30/2020 Postponed from 1985 SERIES (1 of 3 - PCV13) (Refused ) INFLUENZA VACCINE (#1) 2020 Postponed from 04/20/2020 (Parent Refused) Depression Screening 01/06/2021 01/07/2020 documented as of this encounter Results Not on filedocumented in this encounter Insurance Payer Benefit Plan / Subscriber ID Effective Phone Address T ype Group Dates [place] [id number] 2017-Pres Medica re HEALTHCARE - HEALTHCARE ent Adv HM O MANAGED DUAL COMPLETE MEDICARE HMO TMHP MEDICAID OF xxxxxxxxx 2019-Pres [phone] [place] caid [place] ent [id number] [place] [address] documented as of this encounter
--- OUTSIDE RECORDS SUMMARY | 2020-03-22 13:56 | XMS REPORT | Summary of Care ---
:1980 Author Organization [facility] Address [address] [place] [address] Care Team Providers Name Role Phone Naeem Guaman Unavailable Thuy Jay MD Primary Care Provider Reason for Visit Reason Comments Assessment Encounter Details Date Type Department Care Team Description 03/17/2020 Telephone [facility] Pediatric and Jayson Acuña MD Assessment Adult Primary Care- [address] [place] [address] [place] [address], [address] [place] [address] Allergies Active Allergy Reactions Severity Noted Date Comments Iap-Op-Ygo-Atropine-Hyosc- Unknown - See 10/01/2014 seizure Scop comments [...] as of this encounter (statuses as of 03/17/2020) Medications Medication Sig Dispensed Refills Start Date [...] as of this encounter (statuses as of 03/17/2020) Active Problems Problem Noted Date Elevated TSH [...] as of this encounter (statuses as of 03/17/2020) Resolved Problems Problem Noted Date Resolved Date Left hand pain 01/07/2020 01/26/2020 Left wrist pain 01/07/2020 01/26/2020 Fall, initial encounter 01/07/2020 01/26/2020 Foot pain, right 11/29/2015 07/08/2017 documented as of this encounter (statuses as of 03/17/2020) Social History Tobacco Use Types Packs/Day Years [...] Office Visit Family Medicine Jose Jay MD [address] [place] [address] [phone] Health Maintenance Due Date Last Done [...] Effective Phone Address T ype Group Dates [place] [id number] 2017-Pres Medica re HEALTHCARE - HEALTHCARE ent Adv HM O MANAGED DUAL COMPLETE MEDICARE HMO TMHP MEDICAID OF xxxxxxxxx 2019-Pres [phone] [address] Med[place] caid [place] ent [id number] [place] [address] documented as of this encounter
[2020-03-22] MEDS ORDERED: DIPHENHYDRAMINE 50 MG/ML VIAL ONE (14:11)
[2020-03-22] MEDS ORDERED: HYDROMORPHONE HCL 2 MG/ML inj ONE (14:11)
[2020-03-22] MEDS ORDERED: NA CHLORIDE 0.9% 1,000 ML ONE (14:11)
[2020-03-22] MEDS ORDERED: PROMETHAZINE INJ 25 MG/ML AMP ONE (14:15)
[2020-03-22] MEDS ORDERED: FOLIC ACID 5 MG/ML VIAL ONE ×2 (14:18→14:35)
[2020-03-22 14:34] LABS: ALT/SGPT 63 U/L (12-78); Albumin 2.9 g/dL (3.4-5.0); Alkaline Phosphatase 217 U/L (45-117); BUN Blood Urea Nitrogen 10 mg/dL (7-18); Bicarbonate 27 mmol/L (21-32); Bilirubin Direct 1.2 mg/dL (0-0.2); Bilirubin Total 3.7 mg/dL (0.2-1.0); Glucose Level 103 mg/dL (74-106); NT PRO-BNP 624 pg/mL (<125); Protein, Total 10.1 g/dL (6.4-8.2); Sodium Level 139 mmol/L (136-145); Troponin (Emerg Dept Use Only) < 0.02 ng/mL (0.0-0.045)
[2020-03-22 14:42] LABS: Absolute Lymphocytes (CBC) 6.7 K/uL (0.7-4.9); Basophils % 2.8 % (0-1.3); Hematocrit 18.8 % (36.0-45.0); Lymphocytes % 38.2 % (15.3-44.8); RBC Red Blood Cell Count 1.79 M/uL (3.86-4.86)
[2020-03-22 14:55] LABS: AST/SGOT 143 U/L (15-37); Magnesium 1.7 mg/dL (1.8-2.4)
[2020-03-22 15:17] LABS: Anisocytosis 3+; Blood Morphology Comment NOTED (NOT SEEN); Poikilocytosis 3+
[2020-03-22 15:19] LABS: Platelet Estimate ADEQ
--- NOTE | 2020-03-22 15:51 | RAD REPORT ---
EXAM DESCRIPTION: Bhavint Single View03/22/2020 3:16 pm CLINICAL HISTORY: Chest pain COMPARISON: 02/2020 FINDINGS: The lungs appear clear of acute infiltrate. The heart is moderately enlarged The upper lobe vessels are prominent indicative of pulmonary venous hypertension
--- NOTE | 2020-03-22 15:51 | EDPHYS ---
Physician Documentation [facility] Name: Brennon Berg Age: 40 yrs Sex: Female : 1980 Arrival Date: 03/22/2020 Time: 11:56 Bed 26 Private MD: ED Physician Spenser Luis HPI: 03/22 13:55 This 40 yrs old Black Female presents to ER via EMS with complaints of Sickle Cell anupam Crisis. 13:55 The patient or guardian reports chest pain that is located primarily in the substernal anupam area, epigastric area, anterior chest wall. Onset: yesterday. The patient presents with abdominal pain. Onset: The symptoms/episode began/occurred yesterday. 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 - Social history:: Smoking status: Patient denies any tobacco usage or history of. ROS: 13:56 Constitutional: Negative for fever, chills, and weight loss, Eyes: Negative for injury, anupam pain, redness, and discharge, ENT: Negative for injury, pain, and discharge, Neck: Negative for injury, pain, and swelling, Respiratory: Negative for shortness of breath, cough, wheezing, and pleuritic chest pain, Back: Negative for injury and pain, : Negative for injury, bleeding, discharge, and swelling, MS/Extremity: Negative for injury and deformity, Skin: Negative for injury, rash, and discoloration, Neuro: Negative for headache, weakness, numbness, tingling, and seizure, Psych: Negative for depression, anxiety, suicide ideation, homicidal ideation, and hallucinations, Allergy/Immunology: Negative for hives, rash, and allergies, Endocrine: Negative for neck swelling, polydipsia, polyuria, polyphagia, and marked weight changes, Hematologic/Lymphatic: Negative for swollen nodes, abnormal bleeding, and unusual bruising. 13:56 Cardiovascular: Positive for chest pain. 13:56 Respiratory: Positive for cough. 13:56 Abdomen/GI: Positive for abdominal pain, nausea and vomiting. 13:56 MS/extremity: Negative for acute changes, swelling, tenderness. Exam: 13:56 Constitutional: This is a well developed, well nourished patient who is awake, alert, anupam and in no acute distress. Head/Face: Normocephalic, atraumatic. Eyes: Pupils equal round and reactive to light, extra-ocular motions intact. Lids and lashes normal. Conjunctiva and sclera are non-icteric and not injected. Cornea within normal limits. Periorbital areas with no swelling, redness, or edema. ENT: Nares patent. No nasal discharge, no septal abnormalities noted. Tympanic membranes are normal and external auditory canals are clear. Oropharynx with no redness, swelling, or masses, exudates, or evidence of obstruction, uvula midline. Mucous membranes moist. Neck: Trachea midline, no thyromegaly or masses palpated, and no cervical lymphadenopathy. Supple, full range of motion without nuchal rigidity, or vertebral point tenderness. No Meningismus. Chest/axilla: Normal chest wall appearance and motion. Nontender with no deformity. No lesions are appreciated. Cardiovascular: Regular rate and rhythm with a normal S1 and S2. No gallops, murmurs, or rubs. Normal PMI, no JVD. No pulse deficits. Respiratory: Lungs have equal breath sounds bilaterally, clear to auscultation and percussion. No rales, rhonchi or wheezes noted. No increased work of breathing, no retractions or nasal flaring. Abdomen/GI: Soft, non-tender, with normal bowel sounds. No distension or tympany. No guarding or rebound. No evidence of tenderness throughout. Back: No spinal tenderness. No costovertebral tenderness. Full range of motion. Female : Normal external genitalia. Skin: Warm, dry with normal turgor. Normal color with no rashes, no lesions, and no evidence of cellulitis. MS/ Extremity: Pulses equal, no cyanosis. Neurovascular intact. Full, normal range of motion. Neuro: Awake and alert, GCS 15, oriented to person, place, time, and situation. Cranial nerves II-XII grossly intact. Motor strength 5/5 in all extremities. Sensory grossly intact. Cerebellar exam normal. Normal gait. 13:56 Musculoskeletal/extremity: DVT Exam: No signs of deep vein thrombosis. no pain, no swelling, no tenderness, negative Homans' sign noted on exam, no appreciated bluish discoloration, no erythema, no increased warmth. 15:47 ECG was reviewed by the Attending Physician. [facility] Vital Signs: 12:06 BP 142 / 93; Pulse 86; Resp 20; Temp 98; Pulse Ox 100% ; sv 12:30 BP 156 / 105; Pulse 75; Resp 18; Pulse Ox 100% on R/A; Pain 10/10; ks7 13:37 BP 127 / 87; Pulse 85; Resp 18; Pulse Ox 100% ; Pain 10/10; ks7 14:30 BP 140 / 83; Pulse 85; Resp 18; Pulse Ox 100% on R/A; Pain 6/10; ks7 15:15 BP 143 / 99; Pulse 72; Resp 18; Pulse Ox 99% on 2 lpm NC; Pain 5/10; ks7 16:00 BP 138 / 89; Pulse 70; Resp 18; Pulse Ox 100% on R/A; Pain 5/10; ks7 16:44 BP 135 / 91; Pulse 71; Resp 18; Temp 98.3(O); Pulse Ox 100% on R/A; Pain 7/10; ks7 Procedures: 13:46 Peripheral line: by aseptic technique a peripheral line was placed in the left external snw jugular vein. MDM: 12:27 Patient medically screened. [facility] 13:57 Data reviewed: vital signs, nurses notes, lab test result(s), EKG, radiologic studies, [facility] scan, plain films. 15:44 Differential diagnosis: abnormal EKG, anxiety, coronary artery disease chest wall pain, anupam costochondritis, hiatal hernia, pneumonia, pneumothorax, pulmonary embolus, gastritis, pancreatitis, Ureterolithiasis. HEART Score: History: Moderately Suspicious (1), ECG: Normal (0), Age: < or = 45 years (0), Risk Factors: 1 or 2 risk factors (1), [Hypercholesterolemia] [+ Family HX]. The patient was not given aspirin in the Emergency Department. Not indicated due to patient's past medical history. The patient's deep vein thrombosis risk score was calculated as follows: Total Score: 0. This patient was found to be at low risk for a deep vein thrombosis by using the Well's assessment criteria. The patient's pulmonary embolism risk score was calculated as follows: Total Score: 0-2 points. This patient was found to be at low risk for a pulmonary embolism by using the Well's assessment criteria. KASEY Risk Score: TOTAL SCORE = 0. Data interpreted: cardiac monitor technician: rate is 72 beats/min, rhythm is regular, Pulse oximetry: on room air is 99 %. Test interpretation: by ED physician or midlevel provider: ECG, plain radiologic studies. 03/22 13:54 Order name: Basic Metabolic Panel; Complete Time: 15:39 [facility] 03/22 13:54 Order name: CBC with Diff; Complete Time: 15:39 [facility] 03/22 13:54 Order name: LFT's; Complete Time: 15:39 [facility] 03/22 13:54 Order name: Magnesium; Complete Time: 15:39 [facility] 03/22 13:54 Order name: NT PRO-BNP; Complete Time: 15:39 [facility] 03/22 13:54 Order name: Troponin (emerg Dept Use Only); Complete Time: 15:40 [facility] 03/22 13:54 Order name: XRAY Chest (1 view) [facility] 03/22 13:54 Order name: Retic Count; Complete Time: 15:39 [facility] 03/22 13:55 Order name: Type And Screen [facility] 03/22 14:52 Order name: Manual Differential; Complete Time: 15:39 EDLA 03/22 13:54 Order name: EKG; Complete Time: 13:55 [facility] 03/22 13:54 Order name: Cardiac monitoring; Complete Time: 13:57 [facility] 03/22 13:54 Order name: EKG - Nurse/Tech [facility] 03/22 13:54 Order name: IV Saline Lock; Complete Time: 13:57 [facility] 03/22 13:54 Order name: Labs collected and sent; Complete Time: 13:57 [facility] 03/22 13:54 Order name: O2 Per Protocol; Complete Time: 13:57 [facility] 03/22 13:54 Order name: O2 Sat Monitoring; Complete Time: 13:57 [facility] 03/22 13:55 Order name: Oxygen; Complete Time: 13:56 [facility] EC:47 Rate is 68 beats/min. QRS Elaine is Normal. AR interval is normal. QRS interval is anupam normal. QT interval is normal. No Q waves. T waves are Normal. No ST changes noted. Clinical impression: Normal ECG. Interpreted by me. Reviewed by me. Administered Medications: 14:25 Drug: NS 0.9% 1000 ml Route: IV; Rate: 1 bolus; Site: left jugular; ks7 14:26 Drug: Dilaudid 1 mg Route: IVP; Site: left jugular; ks7 14:27 Drug: Phenergan 25 mg Route: IVP; Site: left jugular; ks7 14:28 Drug: Benadryl 50 mg Route: IVP; Site: left jugular; ks7 17:06 Not Given (to be given upstairs once IV is established): Magnesium Sulfate 1 grams IVPB sv once over 1 hrs 17:06 Not Given (no IV access): NS 0.9% 1000 ml IV at 125 ml/hr continuous sv 17:06 Not Given (no IV acccess): Dilaudid 0.5 mg IVP once; RASS on ADMIN: Combtv4, Very sv Agttd3, Agttd2, Rstlss1, AlertClm0, Drwsy-1, Lt Sdtn-2, Mod Sdtn-3, Dp Sdtn-4, UnArsble-5 Disposition: 03/22/20 15:50 Hospitalization ordered by Prince Milli for Observation. Preliminary diagnosis are Sickle-cell/Hb-C disease, Elevated white blood cell count, Aplastic anemia, unspecified, Hypomagnesemia. - Bed requested for Telemetry/MedSurg (observation). - Status is Observation. sv - Condition is Stable. - Problem is new. - Symptoms have improved. Signatures: Dispatcher [employer] EDMS Alexandra Matos Stephanie, RN RN sv Woody, Diana, RN RN dw Anderson, Corey, MD MD cha Waters, Shelly, PUTTY WORKER-C PUTTY WORKER-Lauren Rankin, RN RN ks7 Corrections: (The following items were deleted from the chart) 16:31 15:50 Hospitalization Ordered by Prince Milli VERAS for Observation. Preliminary dw diagnosis is Sickle-cell/Hb-C disease; Elevated white blood cell count; Aplastic anemia, unspecified; Hypomagnesemia. Bed requested for Telemetry/MedSurg (observation). Status is Observation. Condition is Stable. Problem is new. Symptoms have improved. anupam 17:07 14:06 Labs - recollect needed ordered. bd sv 17:08 16:31 03/22/2020 15:50 Hospitalization Ordered by Prince Milli VERAS for Observation. sv Preliminary diagnosis is Sickle-cell/Hb-C disease; Elevated white blood cell count; Aplastic anemia, unspecified; Hypomagnesemia. Bed requested for Telemetry/MedSurg (observation). Status is Observation. Condition is Stable. Problem is new. Symptoms have improved. dw
--- NOTE | 2020-03-22 15:51 | ER ---
Nurse's Notes [facility] Name: Brennon Berg Age: 40 yrs Sex: Female : 1980 Arrival Date: 03/22/2020 Time: 11:56 Bed 26 Private MD: Diagnosis: Sickle-cell/Hb-C disease;Elevated white blood cell count;Aplastic anemia, unspecified;Hypomagnesemia Presentation: 03/22 11:58 Chief complaint: EMS states: called out for sickle cell pain, pt refused any treatment sv in route to hospital. Pt reports she ran out of her pain medications yesterday but it is too early to get her pain meds refilled. Pt reports using more than she's prescribed at times. Risk Assessment: Do you want to hurt yourself or someone else? Patient reports no desire to harm self or others. Onset of symptoms was March 22, 2020. 11:58 Method Of Arrival: EMS: [facility] sv 11:58 Acuity: TEMI 3 sv 12:06 Coronavirus screen: Client denies travel out of the [place] in the last 14 days. none At sv this time, unable to obtain information related to previous covid testing. The client reports previous COVID testing was negative. Initial Sepsis Screen: Does the patient meet any 2 criteria? No. Patient's initial sepsis screen is negative. Does the patient have a suspected source of infection? No. Patient's initial sepsis screen is negative. 12:08 Ebola Screen: No symptoms or risks identified at this time. sv Triage Assessment: 11:58 General: Appears in no apparent distress. uncomfortable, Behavior is cooperative, sv appropriate for age, anxious. Pain: Complains of pain in "all over" Pain currently is 10 out of 10 on a pain scale. Neuro: Level of Consciousness is awake, alert, obeys commands, Oriented to person, place, time, situation. Respiratory: Respiratory effort is even, unlabored, Respiratory pattern is regular, symmetrical. Derm: Skin is pink, warm \\T\\ dry. 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 - Social history:: Smoking status: Patient denies any tobacco usage or history of. Screenin:08 Abuse screen: Denies threats or abuse. Denies injuries from another. Nutritional sv screening: No deficits noted. Tuberculosis screening: No symptoms or risk factors identified. Fall Risk None identified. Assessment: 12:31 General: Appears uncomfortable, Behavior is cooperative, fussy. Pain: Complains of pain ks7 in all over body pain Pain currently is 10 out of 10 on a pain scale. Quality of pain is described as aching, sharp, Pain began 4 hours ago. Is continuous, Noted to be moaning. Neuro: No deficits noted. Cardiovascular: No deficits noted. Respiratory: No deficits noted. 13:35 Reassessment: answered call light. pt tearful, moaning, in pain. updated pt on ks7 poc/timeline. apologized to pt for wait, explained that RN who can do EJ or US IV is here and will come in to start a line as soon as he is available. reassured her pain meds will be given when IV is started. 14:15 Reassessment: pt crying, hysterically, on phone with her mother. as soon as I walked in ks7 room with meds the crying stopped and pt was calm and cooperative. 15:24 Reassessment: pt ambulated to bathroom independently. steady on feet. no s/s of ks7 distress. 16:46 Reassessment: pt refusing central line. requesting a midline catheter placed. ks7 16:46 Reassessment: Attempted to call report, nurse to call back. sv Vital Signs: 12:06 BP 142 / 93; Pulse 86; Resp 20; Temp 98; Pulse Ox 100% ; sv 12:30 BP 156 / 105; Pulse 75; Resp 18; Pulse Ox 100% on R/A; Pain 10/10; ks7 13:37 BP 127 / 87; Pulse 85; Resp 18; Pulse Ox 100% ; Pain 10/10; ks7 14:30 BP 140 / 83; Pulse 85; Resp 18; Pulse Ox 100% on R/A; Pain 6/10; ks7 15:15 BP 143 / 99; Pulse 72; Resp 18; Pulse Ox 99% on 2 lpm NC; Pain 5/10; ks7 16:00 BP 138 / 89; Pulse 70; Resp 18; Pulse Ox 100% on R/A; Pain 5/10; ks7 16:44 BP 135 / 91; Pulse 71; Resp 18; Temp 98.3(O); Pulse Ox 100% on R/A; Pain 7/10; ks7 ED Course: 11:56 Patient arrived in ED. iw 11:58 Triage completed. sv 11:59 Arm band placed on. sv 12:00 Patient has correct armband on for positive identification. Placed in gown. Bed in low sv position. Call light in reach. Side rails up X2. 12:04 Lauren Felton, RN is Primary Nurse. ks7 12:20 Missed attempt(s): 24 gauge in right hand. Bleeding controlled, band aid applied, sv catheter tip intact. 12:22 Missed attempt(s): 24 gauge in right hand. Bleeding controlled, band aid applied, sv catheter tip intact. 12:26 Missed attempt(s): 24 gauge in right hand. Bleeding controlled, band aid applied, sv catheter tip intact. 12:27 Spenser Luis MD is Attending Physician. anupam 12:31 No provider procedures requiring assistance completed. ks7 13:40 Inserted saline lock: 18 gauge in left EJ, using aseptic technique. Blood collected. bp 13:46 Mc Camila, REFUSE LABORER-C is PHCP. snw 13:56 Type And Screen Sent. ks7 13:57 Retic Count Sent. ks7 13:57 Basic Metabolic Panel Sent. ks7 13:57 CBC with Diff Sent. ks7 13:57 LFT's Sent. ks7 13:57 Magnesium Sent. ks7 13:57 NT PRO-BNP Sent. ks7 13:57 Troponin (emerg Dept Use Only) Sent. ks7 14:44 IV discontinued, intact, bleeding controlled, Pressure dressing applied, iv ks7 infiltrated. hot pack on site, hob elevated. pt aaox4 no s/s of distress. pt asked for sandwich chips and apple juice. 14:58 bedside cxr done. ks7 15:16 XRAY Chest (1 view) In Process Unspecified. EDMS 15:48 Prince Morley MD is Hospitalizing Provider. anupam 15:50 sitting up on side of bed eating her sandwich and juice, no s/s of distress. ks7 16:21 Admitting physician to see patient. at bedside discussing admit plan of care. RESEARCH ARCHAEOLOGIST aware ks7 pt has no IV access. Administered Medications: 14:25 Drug: NS 0.9% 1000 ml Route: IV; Rate: 1 bolus; Site: left jugular; ks7 14:26 Drug: Dilaudid 1 mg Route: IVP; Site: left jugular; ks7 14:27 Drug: Phenergan 25 mg Route: IVP; Site: left jugular; ks7 14:28 Drug: Benadryl 50 mg Route: IVP; Site: left jugular; ks7 17:06 Not Given (to be given upstairs once IV is established): Magnesium Sulfate 1 grams IVPB sv once over 1 hrs 17:06 Not Given (no IV access): NS 0.9% 1000 ml IV at 125 ml/hr continuous sv 17:06 Not Given (no IV acccess): Dilaudid 0.5 mg IVP once; RASS on ADMIN: Combtv4, Very sv Agttd3, Agttd2, Rstlss1, AlertClm0, Drwsy-1, Lt Sdtn-2, Mod Sdtn-3, Dp Sdtn-4, UnArsble-5 Outcome: 15:50 Decision to Hospitalize by Provider. [facility] 16:50 Admitted to Tele accompanied by [facility], via stretcher, room 207, with chart, Report sv called to Sid JORDAN 16:50 Condition: stable 16:50 Instructed on the need for admit. 17:08 Patient left the ED. sv Signatures: Dispatcher [employer] EDMS Brigitte Olson RN Spenser Billingsley MD MD cha Waters, Shelly, REFUSE LABORER-C REFUSE LABORER-Csnw Patrizia Armenta, Kasi Barrow RN, RN RN bp Songcuan, Kathleen, RN RN ks7 Corrections: (The following items were deleted from the chart) 12:09 11:58 Chief complaint: EMS states: called out for sickle cell pain, pt refused any sv treatment in route to hospital. sv 15:20 14:58 BP 140 / 83; Pulse 85bpm; Resp 18bpm; Pulse Ox 100% RA; Pain 01/27; ks7 ks7
[2020-03-22] MEDS ORDERED: ACETAMINOPHEN 500 MG TAB PO PRN (16:52)
[2020-03-22] MEDS: NA CHLORIDE 0.9% 1,000 ML IV SCH ×2 (16:52→19:49)
[2020-03-22] MEDS ORDERED: HYDRALAZINE HCL 20 MG/ML VIAL IV PRN (16:52)
[2020-03-22] MEDS ORDERED: HYDROCODONE/APAP 7.5/325 MG TAB PO PRN (16:52)
--- NOTE | 2020-03-22 17:14 | P.HP ---
Certification for Inpatient Patient admitted to: Inpatient Patient will require the following post-hospital care: None Practitioner: I am a practitioner with admitting privileges, knowledge of patient current condition, hospital course, and medical plan of care. Services: Services provided to patient in accordance with Admission requirements found in Title 42 Section 412.3 of the Code of Federal Regulations Patient History Date of Service: 03/22/20 Reason for admission: Sickle cell crisis History of Present Illness: 40-year-old female with history of hypertension, sickle cell disease presents emergency department with 1 day of severe generalized pain. Patient reports that the pain started in her legs in progress throughout her whole body. Patient was initially screaming and crying in pain. Labs are significant for hemoglobin of 6.5 and a retic count of 16%. Patient in mild to moderate distress at this time. After evaluation in the emergency department ED provider wishes to admit patient for further evaluation and management. Allergies butorphanol tartrate [From Stadol] Allergy (Severe, Verified 04/12/19 15:26) seizures ketorolac tromethamine [From Toradol] Allergy (Severe, Verified 04/12/19 15:26) SEIZURES ondansetron HCl [From Zofran] Allergy (Severe, Verified 04/12/19 15:26) SEIZURES morphine Allergy (Intermediate, Verified 04/12/19 15:26) Hives fentanyl Allergy (Verified 04/12/19 15:26) Itching/Hives/Rash ondansetron [From Zofran (as hydrochloride)] Allergy (Verified 04/12/19 15:26) seizures tramadol Allergy (Verified 04/12/19 15:26) seizure trazodone Allergy (Verified 04/12/19 15:26) seizure metoclopramide [From Reglan] Adverse Reaction (Verified 04/12/19 15:26) SEIZURES Home Medications: Amlodipine [Norvasc*] 2.5 mg PO BID 05/25/19 Hydrocodone Bit/Acetaminophen [[place] 10-325 Tablet] 1 tab PO Q4H PRN 05/25/19 Mirtazapine [Remeron*] 45 mg PO BEDTIME 05/25/19 Promethazine HCl 25 mg PO DAILY PRN 05/25/19 Folic Acid 1 mg PO DAILY #90 tablet 03/04/20 Magnesium Oxide [Mag 0X Tab] 400 mg PO DAILY #30 tab 03/04/20 Metoprolol Succinate [Toprol Xl*] 25 mg PO BID #60 tab 03/04/20 Thiamine HCl [Vitamin B-1*] 100 mg PO DAILY #90 tablet 03/04/20 - Past Medical/Surgical History Diabetic: No -: Sickle cell disease -: History of CVA and Left side weakness -: CAD -: Hypertension -: Seizure disorder -: Insomnia -: History of endocarditis -: Anxiety disorder -: Chronic pain -: Aplastic Anemia -: RI -: Osteo to the Right leg -: Right axillary lumpectomy -: Splenectomy -: Cholecystectomy -: Partial hysterectomy -: 6 portacaths -: 6 piccs -: Psychosocial/ Personal History: The patient is . She has 2 children. - Family History Father -: Heart disease, Hypertension Mother -: Hypertension - Social History Smoking Status: Never smoker Alcohol use: Yes CD- Drugs: No Caffeine use: Yes Place of Residence: Home Review of Systems 10-point ROS is otherwise unremarkable Musculoskeletal: Other (Patient with severe generalized pain.) Physical Examination - Physical Exam General: Alert, In no apparent distress HEENT: Atraumatic, PERRLA, Other (Mucous membranes dry), EOMI, Sclerae nonicteric Neck: Supple, 2+ carotid pulse no bruit, No LAD, Without JVD or thyroid abnormality Respiratory: Clear to auscultation bilaterally, Normal air movement Cardiovascular: Regular rate/rhythm, Normal S1 S2 Gastrointestinal: Normal bowel sounds, No tenderness Musculoskeletal: No tenderness Integumentary: No rashes Neurological: Normal gait, Normal speech, Normal strength at 5/5 x4 extr, Normal tone, Normal affect Lymphatics: No axilla or inguinal lymphadenopathy - Studies Laboratory Data (last 24 hrs) 03/22/20 13:45: WBC 17.4 H, Hgb 6.5 L*, Hct 18.8 L*, Plt Count 184 03/22/20 13:45: Sodium 139, Potassium 5.0, BUN 10, Creatinine 0.68, Glucose 103, Magnesium 1.7 L, Total Bilirubin 3.7 H, AST 143 H, ALT 63, Alkaline Phosphatase 217 H Assessment and Plan - Plan Assessment Sickle cell crisis with severe pain Acute on chronic macrocytic Anemia likely secondary to sickle cell disease Hypertension Chronic pain History of CVA History of myocardial infarction Plan Sickle cell crisis with severe pain: Continue with IV narcotic pain medication as needed, oxygen per nasal cannula, IV fluids. Will continue a daily reticulocyte counts, CBC, BMP. 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 Patient known to have extensive antibodies. Blood transfusions will take a while to obtain. Hypertension: Have continue patient's home hypertensive medications, will also place p.r.n. medications. Chronic pain: Pain medications in place. History of CVA: Obtain and continue patient's home medications. History of myocardial infarction: Obtain and continue patient's home medications. Discharge Plan: Home Plan to discharge in: 72 Hours - Advance Directives Does patient have a Living Will: No Does patient have a Durable POA for Healthcare: No - Code Status/Comfort Care Code Status Assessed: Yes Critical Care: No Time Spent Managing Pts Care (In Minutes): 55
[2020-03-22] MEDS: METOPROLOL XL 25 MG TAB PO SCH (17:54)
[2020-03-22] MEDS: ENOXAPARIN 40 MG/0.4 ML SQ SCH (17:54)
[2020-03-22 17:57] VITALS: BMI 26.9
[2020-03-22] MEDS ORDERED: MAGNESIUM SULFATE 1 gm IVPB 1 GM/100 ML BAG IV ONE (18:00)
[2020-03-22] MEDS: HYDROMORPHONE HCL 2 MG/ML inj IV PRN ×2 (19:49→23:53)
[2020-03-22] MEDS: PROMETHAZINE INJ 25 MG/ML AMP IV PRN (19:50)
[2020-03-22] MEDS: DIPHENHYDRAMINE 50 MG/ML VIAL IV PRN (23:53)
[2020-03-23 01:42] LABS: Urine Appearance CLEAR; Urine Bilirubin NEGATIVE (NEG); Urine Blood TRACE (NEG); Urine Color DK YELLOW; Urine Glucose NEGATIVE (NEG); Urine Protein TRACE (NEG)
[2020-03-23 01:45] LABS: Urine Microscopic Reflex ORDER UMIC
[2020-03-23 02:36] LABS: Urine Bacteria 20-50 /HPF (<20); Urine Culture Reflex Order REFLEXED; Urine RBC NONE SEEN /HPF (NONE SEEN)
[2020-03-23] MEDS: PROMETHAZINE INJ 25 MG/ML AMP IV PRN ×3 (03:52→18:21)
[2020-03-23] MEDS: HYDROMORPHONE HCL 2 MG/ML inj IV PRN ×5 (03:53→21:51)
[2020-03-23] MEDS: METOPROLOL XL 25 MG TAB PO SCH ×3 (05:31→17:48)
[2020-03-23 06:08] LABS: MPV 9.1 fL (7.6-11.3); RBC Red Blood Cell Count 1.79 M/uL (3.86-4.86)
[2020-03-23 06:29] LABS: BUN Blood Urea Nitrogen 12 mg/dL (7-18); Bicarbonate 28 mmol/L (21-32); Glucose Level 101 mg/dL (74-106); Magnesium 2.1 mg/dL (1.8-2.4); Potassium 4.2 mmol/L (3.5-5.1); Sodium Level 141 mmol/L (136-145)
[2020-03-23 06:31] LABS: Hematocrit 18.7 % (36.0-45.0)
[2020-03-23] MEDS: NA CHLORIDE 0.9% 1,000 ML IV SCH ×2 (06:54→17:50)
[2020-03-23] MEDS: FOLIC ACID 1 MG TABLET PO SCH (08:01)
[2020-03-23] MEDS: DIPHENHYDRAMINE 50 MG/ML VIAL IV PRN ×2 (08:01→23:47)
[2020-03-23] MEDS: AMLODIPINE 2.5 MG TAB PO SCH (08:02)
[2020-03-23] MEDS: ENOXAPARIN 40 MG/0.4 ML SQ SCH (08:03)
--- NOTE | 2020-03-23 08:45 | P.PN ---
Subjective Date of Service: 03/23/20 Chief Complaint: Sickle cell crisis Subjective: No new changes Review of Systems 10-point ROS is otherwise unremarkable Musculoskeletal: Other (Severe generalized pain) Physical Examination - Vital Signs Temperature: 97.6 F Blood Pressure: 170/86 Pulse: 91 Respirations: 18 Pulse Ox (%): 94 - Physical Exam General: Alert, In no apparent distress HEENT: Atraumatic, PERRLA, EOMI Neck: Supple, JVD not distended Respiratory: Clear to auscultation bilaterally, Normal air movement Cardiovascular: Regular rate/rhythm, Normal S1 S2 Gastrointestinal: Normal bowel sounds, No tenderness Musculoskeletal: No tenderness Integumentary: No rashes Neurological: Normal speech, Normal affect, Other (Left upper extremity weakness) Lymphatics: No axilla or inguinal lymphadenopathy - Studies Laboratory Data (last 24 hrs) 03/22/20 13:45: WBC 17.4 H, Hgb 6.5 L*, Hct 18.8 L*, Plt Count 184 03/22/20 13:45: Sodium 139, Potassium 5.0, BUN 10, Creatinine 0.68, Glucose 103, Magnesium 1.7 L, Total Bilirubin 3.7 H, AST 143 H, ALT 63, Alkaline Phosphatase 217 H Medications List Reviewed: Yes Assessment & Plan Discharge Plan: Home Plan to discharge in: Greater than 2 days - Code Status/Comfort Care Code Status Assessed: Yes Physician Review Additional Text: Assessment Sickle cell crisis with severe pain 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 Continue with IV narcotic pain medication as needed, oxygen per nasal cannula, IV fluids. Will continue a daily reticulocyte counts, CBC, BMP. Anticipate clinical improvement next 48-72 hr. 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 Patient known to have extensive antibodies. Blood transfusions will take a while to obtain. Hypertension: Have continue patient's home hypertensive medications, will also place p.r.n. medications. Chronic pain: Pain medications in place. History of CVA: Obtain and continue patient's home medications. History of myocardial infarction: Obtain and continue patient's home medications. Critical Care: No Time Spent Managing Pts Care (In Minutes): 55
[2020-03-23] MEDS: clonazePAM 1 MG TAB PO SCH ×3 (09:14→21:49)
[2020-03-23 10:56] LABS: Anisocytosis 3+; Blood Morphology Comment NOTED (NOT SEEN); Macrocytosis 1+; Platelet Estimate ADEQ; Platelets, Giant PRESENT
[2020-03-23 10:57] LABS: Polychromasia 1+
--- NOTE | 2020-03-23 11:04 | EKG ---
Test Date: 2020-03-22 Test Time: 14:29:35 [employer] Estate Closing Coordinator: RADHA MEASUREMENT RESULTS: Intervals: Rate: 68 MI: 196 QRSD: 92 QT: 444 QTc: 472 [place]: P: 49 MI: 196 QRS: 50 T: 35 INTERPRETIVE STATEMENTS: Normal sinus rhythm Voltage criteria for left ventricular hypertrophy Abnormal ECG Compared to ECG 02/23/2020 08:52:55 Atrial premature complex(es) no longer present Prolonged QT interval no longer present Electronically Signed On 03-23-20 11:01:56 CDT by Ronan Ojeda
[2020-03-23] MEDS: MIRTAZAPINE 15 MG TAB PO SCH (21:49)
[2020-03-24] MEDS: HYDROMORPHONE HCL 2 MG/ML inj IV PRN ×5 (03:01→23:55)
[2020-03-24] MEDS: NA CHLORIDE 0.9% 1,000 ML IV SCH ×3 (03:31→23:54)
[2020-03-24] MEDS: METOPROLOL XL 25 MG TAB PO SCH ×2 (05:32→17:58)
[2020-03-24 06:17] LABS: Hematocrit 14.8 % (36.0-45.0); RBC Red Blood Cell Count 1.47 M/uL (3.86-4.86)
[2020-03-24 07:05] LABS: Anisocytosis 3+; Blood Morphology Comment NOTED (NOT SEEN); Platelet Estimate ADEQ; Platelets, Giant NOTED
[2020-03-24 07:06] LABS: Poikilocytosis 1+; Polychromasia 2+
[2020-03-24 08:44] LABS: Potassium 5.9 mmol/L (3.5-5.1)
[2020-03-24] MEDS ORDERED: clonazePAM 1 MG TAB PO PRN (08:46)
[2020-03-24] MEDS: FOLIC ACID 1 MG TABLET PO SCH (08:48)
[2020-03-24] MEDS: AMLODIPINE 2.5 MG TAB PO SCH (08:48)
[2020-03-24] MEDS: DIPHENHYDRAMINE 50 MG/ML VIAL IV PRN ×2 (08:51→14:34)
[2020-03-24] MEDS: ENOXAPARIN 40 MG/0.4 ML SQ SCH (09:00)
[2020-03-24] MEDS ORDERED: ACETAMINOPHEN 500 MG TAB PO ONE (10:30)
--- NOTE | 2020-03-24 10:30 | P.PN ---
Subjective Date of Service: 03/24/20 Chief Complaint: Sickle cell crisis Subjective: No new changes Review of Systems Musculoskeletal: Other (Severe generalized pain) Physical Examination - Vital Signs Temperature: 97.5 F Blood Pressure: 133/71 Pulse: 97 Respirations: 18 Pulse Ox (%): 94 - Physical Exam General: Alert, In no apparent distress HEENT: Atraumatic, PERRLA, EOMI Neck: Supple, JVD not distended Respiratory: Clear to auscultation bilaterally, Normal air movement Cardiovascular: Regular rate/rhythm, Normal S1 S2 Gastrointestinal: Normal bowel sounds, No tenderness Musculoskeletal: No tenderness Integumentary: No rashes Neurological: Normal speech, Normal affect Lymphatics: No axilla or inguinal lymphadenopathy - Studies Medications List Reviewed: Yes Assessment & Plan Discharge Plan: Home Plan to discharge in: 72 Hours - Code Status/Comfort Care Code Status Assessed: Yes Physician Review Additional Text: Assessment Sickle cell crisis with severe pain 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 Continue with IV narcotic pain medication as needed, oxygen per nasal cannula, IV fluids. Will continue a daily reticulocyte counts, CBC, BMP. Anticipate clinical improvement next 48-72 hr. 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 Recommend transfusing to level of 6 due to previous history of myocardial infarction/CVA. Will transfuse patient today his hemoglobin is 5.3. Leukocytosis: Likely reactive leukocytosis from sickle cell disease, the fever at this time. Blood cultures and urine cultures have been obtained. So far they are negative. Hyperkalemia: Renal function is within normal limits, this is likely related to sickle cell disease and hemolysis. Discussed this with hematology as well who recommended making sure patient is well-hydrated in monitoring this closely. Patient without any symptoms at this time. Hypertension: Have continue patient's home hypertensive medications, will also place p.r.n. medications. Chronic pain: Pain medications in place. History of CVA: Obtain and continue patient's home medications. History of myocardial infarction: Obtain and continue patient's home medications. Critical Care: No Time Spent Managing Pts Care (In Minutes): 55
[2020-03-24] MEDS ORDERED: NA CHLORIDE 0.9% 250 ML IV SCH (11:00)
[2020-03-24] MEDS ORDERED: NA CHLORIDE 0.9% 250 ML ONE (11:25)
[2020-03-24] MEDS: MIRTAZAPINE 15 MG TAB PO SCH (20:44)
[2020-03-24 22:36] LABS: Hematocrit 18.1 % (36.0-45.0)
[2020-03-25] MEDS: PROMETHAZINE INJ 25 MG/ML AMP IV PRN ×2 (00:16→12:29)
[2020-03-25] MEDS: METOPROLOL XL 25 MG TAB PO SCH ×2 (05:16→17:36)
[2020-03-25] MEDS: NA CHLORIDE 0.9% 1,000 ML IV SCH ×3 (05:17→22:12)
[2020-03-25 05:34] LABS: Hematocrit 18.4 % (36.0-45.0); MPV 9.1 fL (7.6-11.3); RBC Red Blood Cell Count 1.84 M/uL (3.86-4.86)
[2020-03-25 06:07] LABS: Potassium 5.9 mmol/L (3.5-5.1)
[2020-03-25 06:58] LABS: Blood Morphology Comment NOTED (NOT SEEN); Platelet Estimate ADEQ
[2020-03-25 06:59] LABS: Anisocytosis 2+; Poikilocytosis 1+; Polychromasia 2+
[2020-03-25] MEDS: HYDROMORPHONE HCL 2 MG/ML inj IV PRN ×4 (07:54→22:10)
[2020-03-25] MEDS: DIPHENHYDRAMINE 50 MG/ML VIAL IV PRN ×2 (07:54→17:35)
--- NOTE | 2020-03-25 09:25 | P.PN ---
Subjective Date of Service: 03/25/20 Chief Complaint: Sickle cell crisis Subjective: Improving Review of Systems 10-point ROS is otherwise unremarkable Musculoskeletal: Other (Severe generalized pain) Physical Examination - Vital Signs Temperature: 97.2 F Blood Pressure: 137/79 Pulse: 86 Respirations: 18 Pulse Ox (%): 92 - Physical Exam General: Alert, In no apparent distress HEENT: Atraumatic, PERRLA, EOMI Neck: Supple, JVD not distended Respiratory: Clear to auscultation bilaterally, Normal air movement Cardiovascular: Regular rate/rhythm, Normal S1 S2 Gastrointestinal: Normal bowel sounds, No tenderness Musculoskeletal: No tenderness Integumentary: No rashes Neurological: Normal speech, Normal affect Lymphatics: No axilla or inguinal lymphadenopathy - Studies Medications List Reviewed: Yes Assessment & Plan Discharge Plan: Home Plan to discharge in: 24 Hours - Code Status/Comfort Care Code Status Assessed: Yes (Patient is full code) Physician Review Additional Text: Assessment Sickle cell crisis with severe pain 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 Continue with IV narcotic pain medication as needed, oxygen per nasal cannula, IV fluids. Will continue a daily reticulocyte counts, CBC, BMP. Anticipate clinical improvement next 48-72 hr. 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 Recommend transfusing to level of 6 due to previous history of myocardial infarction/CVA. Hemoglobin has improved to 6.4. Will continue to monitor closely. Leukocytosis: Likely reactive leukocytosis from sickle cell disease, the fever at this time. Blood cultures and urine cultures have been obtained. So far they are negative. Will continue to monitor. Patient with no clinical signs of infection. Hyperkalemia: Renal function is within normal limits, this is likely related to sickle cell disease and hemolysis. Discussed this with hematology as well who recommended making sure patient is well-hydrated in monitoring this closely. Patient without any symptoms at this time. The potassium remains at 5.9 Hypertension: Have continue patient's home hypertensive medications, will also place p.r.n. medications. Chronic pain: Pain medications in place. History of CVA: Obtain and continue patient's home medications. History of myocardial infarction: Obtain and continue patient's home medications. Critical Care: No Time Spent Managing Pts Care (In Minutes): 55
[2020-03-25] MEDS: FOLIC ACID 1 MG TABLET PO SCH (10:14)
[2020-03-25] MEDS: AMLODIPINE 2.5 MG TAB PO SCH (10:15)
[2020-03-25] MEDS: MIRTAZAPINE 15 MG TAB PO SCH (21:00)
[2020-03-26 04:48] LABS: Hematocrit 17.5 % (36.0-45.0); MPV 8.8 fL (7.6-11.3); RBC Red Blood Cell Count 1.73 M/uL (3.86-4.86)
[2020-03-26] MEDS: PROMETHAZINE INJ 25 MG/ML AMP IV PRN ×3 (04:48→15:24)
[2020-03-26] MEDS: HYDROMORPHONE HCL 2 MG/ML inj IV PRN ×4 (04:49→20:34)
[2020-03-26 05:20] LABS: Potassium 5.5 mmol/L (3.5-5.1)
[2020-03-26] MEDS: METOPROLOL XL 25 MG TAB PO SCH ×2 (05:49→17:37)
[2020-03-26] MEDS: NA CHLORIDE 0.9% 1,000 ML IV SCH ×3 (05:49→22:07)
[2020-03-26] MEDS: DIPHENHYDRAMINE 50 MG/ML VIAL IV PRN ×2 (05:49→11:48)
[2020-03-26 06:53] LABS: Anisocytosis 3+; Blood Morphology Comment NOTED (NOT SEEN); Platelet Estimate ADEQ; Poikilocytosis 1+; Polychromasia 2+
[2020-03-26] MEDS: AMLODIPINE 2.5 MG TAB PO SCH (09:11)
[2020-03-26] MEDS: FOLIC ACID 1 MG TABLET PO SCH (09:12)
--- NOTE | 2020-03-26 11:10 | P.PN ---
Subjective Date of Service: 03/26/20 Chief Complaint: Sickle cell crisis Subjective: No new changes Review of Systems 10-point ROS is otherwise unremarkable Musculoskeletal: Other (Severe generalized pain) Physical Examination - Vital Signs Temperature: 97.0 F Blood Pressure: 149/99 Pulse: 74 Respirations: 16 Pulse Ox (%): 100 - Physical Exam General: Alert, In no apparent distress, Oriented x3 HEENT: Atraumatic, Normocephalic Neck: Supple Respiratory: Clear to auscultation bilaterally, Normal air movement Cardiovascular: No edema Gastrointestinal: Tenderness (Mild generalized abdominal tenderness) Musculoskeletal: No contractures, No erythema, No tenderness Integumentary: No significant lesion, No tenderness/swelling, No erythema Neurological: Normal speech, Normal strength at 5/5 x4 extr, Normal tone Lymphatics: No axilla or inguinal lymphadenopathy - Studies Medications List Reviewed: Yes Assessment & Plan Discharge Plan: Home Plan to discharge in: 48 Hours - Code Status/Comfort Care Code Status Assessed: Yes (Patient is full code) Physician Review Additional Text: Assessment Sickle cell crisis with severe pain 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 Continue with IV narcotic pain medication as needed, oxygen per nasal cannula, IV fluids. Will continue a daily reticulocyte counts, CBC, BMP. Anticipate clinical improvement next 48-72 hr. 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 Recommend transfusing to level of 6 due to previous history of myocardial infarction/CVA. Hemoglobin has improved to 6.1. Will continue to monitor closely. Leukocytosis: Likely reactive leukocytosis from sickle cell disease, the fever at this time. Blood cultures and urine cultures have been obtained. So far they are negative. Will continue to monitor. Patient with no clinical signs of infection. Hyperkalemia: Renal function is within normal limits, this is likely related to sickle cell disease and hemolysis. Discussed this with hematology as well who recommended making sure patient is well-hydrated in monitoring this closely. Patient without any symptoms at this time. Potassium has improved to 5.5 today Hypertension: Have continue patient's home hypertensive medications, will also place p.r.n. medications. Chronic pain: Pain medications in place. History of CVA: Obtain and continue patient's home medications. History of myocardial infarction: Obtain and continue patient's home medications. Critical Care: No Time Spent Managing Pts Care (In Minutes): 55
[2020-03-26] MEDS: MIRTAZAPINE 15 MG TAB PO SCH (22:08)
[2020-03-27] MEDS: HYDROMORPHONE HCL 2 MG/ML inj IV PRN ×4 (02:25→20:17)
[2020-03-27] MEDS: NA CHLORIDE 0.9% 1,000 ML IV SCH ×5 (04:27→20:16)
[2020-03-27] MEDS: METOPROLOL XL 25 MG TAB PO SCH ×2 (05:50→17:33)
[2020-03-27] MEDS: FOLIC ACID 1 MG TABLET PO SCH (08:36)
[2020-03-27] MEDS: AMLODIPINE 2.5 MG TAB PO SCH (08:36)
--- NOTE | 2020-03-27 08:42 | P.PN ---
Subjective Date of Service: 03/27/20 Chief Complaint: Sickle cell crisis Subjective: New changes, C/O voiced (Patient complaining about left arm swelling and pain.) Review of Systems Musculoskeletal: Arm Pain, Other (Left arm swelling and pain, and generalized pain) Physical Examination - Vital Signs Temperature: 97.1 F Blood Pressure: 134/78 Pulse: 78 Respirations: 18 Pulse Ox (%): 96 - Physical Exam General: In no apparent distress, Oriented x3, Other (Patient is drowsy but arousable to verbal stimulus) HEENT: Atraumatic, Normocephalic, PERRLA Neck: Supple Respiratory: Clear to auscultation bilaterally, Normal air movement Cardiovascular: Normal pulses, Regular rate/rhythm, Normal S1 S2 Capillary refill: <2 Seconds Gastrointestinal: Normal bowel sounds, Soft and benign Musculoskeletal: Swelling, Other (Left upper extremity) Integumentary: No erythema, No warmth Neurological: Normal speech - Studies Medications List Reviewed: Yes Assessment & Plan Discharge Plan: Home Plan to discharge in: 24 Hours - Code Status/Comfort Care Code Status Assessed: Yes (Patient is full code) Physician Review Additional Text: Assessment Sickle cell crisis with severe pain 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 Continue with IV narcotic pain medication as needed, oxygen per nasal cannula, IV fluids. Will continue a daily reticulocyte counts, CBC, BMP. Anticipate clinical improvement next 48-72 hr. Patient noted to have left upper extremity swelling today which is the same arm that she has her midline catheter in. Catheter still returns blood and flushed easily. Will obtain ultrasound to rule out DVT. The patient has been noncompliant with DVT prophylaxis as she has been with previous hospitalizations. Patient has been refusing her Lovenox injection daily. 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 Recommend transfusing to level of 6 due to previous history of myocardial infarction/CVA. Hemoglobin has improved to 6.1. Will continue to monitor closely. Leukocytosis: Likely reactive leukocytosis from sickle cell disease, the fever at this time. Blood cultures and urine cultures have been obtained. So far they are negative. Will continue to monitor. Patient with no clinical signs of infection. White blood cell count is still elevated but coming down nicely. Hyperkalemia: Renal function is within normal limits, this is likely related to sickle cell disease and hemolysis. Discussed this with hematology as well who recommended making sure patient is well-hydrated in monitoring this closely. Patient without any symptoms at this time. Potassium has improved to 5.5 today Hypertension: Have continue patient's home hypertensive medications, will also place p.r.n. medications. Chronic pain: Pain medications in place. History of CVA: Obtain and continue patient's home medications. History of myocardial infarction: Obtain and continue patient's home medications. Critical Care: No Time Spent Managing Pts Care (In Minutes): 55
[2020-03-27] MEDS: DIPHENHYDRAMINE 50 MG/ML VIAL IV PRN (12:24)
--- NOTE | 2020-03-27 13:18 | RAD REPORT ---
EXAM DESCRIPTION: US - UPPER EXTREMITY VENOUS UNILATE - 03/27/2020 12:59 pm CLINICAL HISTORY: Left arm pain and swelling COMPARISON: None. TECHNIQUE: Real-time sonographic evaluation of the left upper extremity deep venous systems was perf ormed. FINDINGS: Normal compressibility, flow augmentation, phasic flow and spontaneous flow are identified in the left upper extremity deep venous system. No intraluminal filling defects seen. Internal jugul ar and subclavian veins are normal as well. IMPRESSION: No DVT in the left upper extremity.
[2020-03-27] MEDS: MIRTAZAPINE 15 MG TAB PO SCH (20:16)
[2020-03-27] MEDS ORDERED: NA CHLORIDE 0.9% 1,000 ML IV SCH (21:00)
[2020-03-28] MEDS: HYDROMORPHONE HCL 2 MG/ML inj IV PRN ×2 (00:56→06:55)
[2020-03-28 06:27] LABS: Hematocrit 18.1 % (36.0-45.0); MPV 8.5 fL (7.6-11.3); RBC Red Blood Cell Count 1.68 M/uL (3.86-4.86)
[2020-03-28 06:44] LABS: Potassium 5.1 mmol/L (3.5-5.1)
[2020-03-28] MEDS: METOPROLOL XL 25 MG TAB PO SCH ×2 (06:46→17:08)
[2020-03-28 07:31] LABS: Anisocytosis 3+; Blood Morphology Comment NOTED (NOT SEEN); Macrocytosis 1+; Platelet Estimate ADEQ; Poikilocytosis 1+; Polychromasia 2+
--- NOTE | 2020-03-28 07:57 | P.PN ---
Subjective Date of Service: 03/28/20 Chief Complaint: Sickle cell crisis Subjective: New changes (pt very lethargic) Review of Systems General: Other (severe generalized pain reported) Physical Examination - Vital Signs Temperature: 97.3 F Blood Pressure: 123/77 Pulse: 75 Respirations: 18 Pulse Ox (%): 97 - Physical Exam General: Other (pt very drowsy, lethargic, eyes open but patient sitting up falling asleep) HEENT: Atraumatic, Normocephalic, PERRLA Neck: Supple Respiratory: Clear to auscultation bilaterally, Normal air movement Cardiovascular: No edema, Normal S1 S2 Capillary refill: <2 Seconds Gastrointestinal: Normal bowel sounds, Soft and benign Musculoskeletal: No contractures, No erythema, No tenderness Integumentary: No tenderness/swelling, No erythema Neurological: Abnormal speech (slow, slurred), Abnormal tone (left arm weakness previous stroke) - Studies Medications List Reviewed: Yes Assessment & Plan Discharge Plan: Home Plan to discharge in: 24 Hours - Code Status/Comfort Care Code Status Assessed: Yes Physician Review Additional Text: Assessment Sickle cell crisis with severe pain 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 Will re evaluate this afternoon. Patient hgb 6.1 which is what hematology is recommending to transfuse to. Retic count elevated. Left arm swelling has improved some, US was negative for DVT, midline catheter in place flushes without difficulty and returns blood. 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 Recommend transfusing to level of 6 due to previous history of myocardial infarction/CVA. Hemoglobin has improved to 6.1. Will continue to monitor closely. Leukocytosis: Likely reactive leukocytosis from sickle cell disease, the fever at this time. Blood cultures and urine cultures have been obtained. So far they are negative. Will continue to monitor. Patient with no clinical signs of infection. White blood cell count is still elevated but coming down nicely. Hyperkalemia: Renal function is within normal limits, this is likely related to sickle cell disease and hemolysis. Discussed this with hematology as well who recommended making sure patient is well-hydrated in monitoring this closely. Patient without any symptoms at this time. Potassium has improved today Hypertension: Have continue patient's home hypertensive medications, will also place p.r.n. medications. Chronic pain: Pain medications in place. History of CVA: Obtain and continue patient's home medications. History of myocardial infarction: Obtain and continue patient's home medications. Critical Care: No Time Spent Managing Pts Care (In Minutes): 55
[2020-03-28] MEDS: FOLIC ACID 1 MG TABLET PO SCH (09:31)
[2020-03-28] MEDS: AMLODIPINE 2.5 MG TAB PO SCH (09:33)
[2020-03-28] MEDS: NACHLORIDE 0.45% 1,000 ML IV SCH (09:34)
--- NOTE | 2020-03-28 10:09 | RAD REPORT ---
EXAM DESCRIPTION: CT - Head Brain Wo Cont - 03/28/2020 8:58 am CLINICAL HISTORY: confusion Headache, drowsiness COMPARISON: Head Brain Wo Cont dated 12/12/2017; Head Brain Wo Cont dated 11/29/2016 TECHNIQUE: All CT scans are performed using dose optimization technique as appropriate and may inclu de automated exposure control or mA/KV adjustment according to patient size. FINDINGS: No intracranial hemorrhage, hydrocephalus or extra-axial fluid collection.Volume loss is s een involving the right cerebral hemisphere, unchanged. This is likely related to previous infarct. O ld infarct is also noted in the left occipital region, unchanged. No areas of brain edema or evidence of midline shift. The paranasal sinuses and mastoids are essentially clear. The calvarium is intact. IMPRESSION: No acute intracranial abnormality.
--- NOTE | 2020-03-28 11:51 | RAD REPORT ---
EXAM DESCRIPTION: RAD - Chest Single View - 03/28/2020 8:58 am CLINICAL HISTORY: leukocytosis Chest pain. COMPARISON: Chest Single View dated 03/22/2020; Chest Single View dated 03/02/2020; Chest Single View d ated 02/23/2020; Chest Single View dated 12/22/2019 FINDINGS: Portable technique limits examination quality. The lungs are grossly clear. The heart is significantly enlarged. Small left pleural effusion is like ly present.
[2020-03-28] MEDS: HYDROCODONE/APAP 10/325 TAB PO PRN ×2 (16:49→20:40)
[2020-03-29] MEDS: NACHLORIDE 0.45% 1,000 ML IV SCH ×2 (00:22→09:40)
[2020-03-29] MEDS: HYDROCODONE/APAP 10/325 TAB PO PRN ×6 (00:23→21:04)
[2020-03-29] MEDS: METOPROLOL XL 25 MG TAB PO SCH ×2 (05:08→17:36)
[2020-03-29 05:27] LABS: MPV 8.6 fL (7.6-11.3)
[2020-03-29 05:46] LABS: Hematocrit 19.9 % (36.0-45.0)
[2020-03-29 05:48] LABS: Potassium 4.5 mmol/L (3.5-5.1)
[2020-03-29 07:15] LABS: Anisocytosis 2+; Blood Morphology Comment NOTED (NOT SEEN); Howell-Jolly Bodies NOTED; Hypochromasia 1+; Macrocytosis 2+; Platelet Estimate ADEQ
[2020-03-29] MEDS: FUROSEMIDE 20 MG/ 2ML VIAL IV SCH (08:45)
[2020-03-29] MEDS: FOLIC ACID 1 MG TABLET PO SCH (08:45)
[2020-03-29] MEDS: DOCUSATE NA 100 MG CAP PO SCH (09:00)
[2020-03-29] MEDS ORDERED: NACHLORIDE 0.45% 1,000 ML IV SCH (12:15)
--- NOTE | 2020-03-29 12:58 | P.PN ---
Subjective Date of Service: 03/29/20 Chief Complaint: Sickle cell crisis Subjective: Improving (Pain improved. Patient still requesting IV pain medication) Physical Examination - Vital Signs Temperature: 96.9 F Blood Pressure: 155/93 Pulse: 70 Respirations: 18 Pulse Ox (%): 99 - Physical Exam General: Alert, Cooperative HEENT: Atraumatic Neck: Supple Respiratory: Clear to auscultation bilaterally, Normal air movement Cardiovascular: Normal pulses, Regular rate/rhythm Gastrointestinal: Normal bowel sounds Integumentary: Other (Patient does not appear in any distress. 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 Continue off IV pain medication. Encourage ambulation. Will provide medication orally. Retake count improved. Encourage ambulation. Anticipate improvement over the next 48 hr. 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 Maintain hemoglobin above 6.0. Leukocytosis: Likely reactive leukocytosis from sickle cell disease, the fever at this time. Blood cultures and urine cultures have been obtained. So far they are negative. Will continue to monitor. Patient with no clinical signs of infection. White blood cell count is still elevated but coming down nicely. Hyperkalemia: Continue hydration. Hypertension: Continue medications Chronic pain: Continue off IV pain medication. Will provide oral medication. History of CVA: Obtain and continue patient's home medications. History of myocardial infarction: Obtain and continue patient's home medications. Time Spent Managing Pts Care (In Minutes): 55
[2020-03-29] MEDS: AMLODIPINE 2.5 MG TAB PO SCH (14:10)
[2020-03-29] MEDS: LORazepam 2 MG/ML VIAL IV PRN (14:46)
[2020-03-30] MEDS: HYDROCODONE/APAP 10/325 TAB PO PRN ×3 (01:13→10:15)
[2020-03-30] MEDS: LORazepam 2 MG/ML VIAL IV PRN (01:14)
[2020-03-30] MEDS: METOPROLOL XL 25 MG TAB PO SCH (05:38)
[2020-03-30 06:11] LABS: MPV 8.7 fL (7.6-11.3); RBC Red Blood Cell Count 1.81 M/uL (3.86-4.86)
[2020-03-30 06:19] LABS: Hematocrit 19.9 % (36.0-45.0)
[2020-03-30] MEDS: FUROSEMIDE 20 MG/ 2ML VIAL IV SCH ×2 (08:56→09:00)
[2020-03-30] MEDS: FOLIC ACID 1 MG TABLET PO SCH (08:57)
[2020-03-30] MEDS: DOCUSATE NA 100 MG CAP PO SCH ×2 (08:57→09:00)
[2020-03-30] MEDS: AMLODIPINE 2.5 MG TAB PO SCH (08:57)
[2020-03-30 09:46] LABS: Anisocytosis 2+; Blood Morphology Comment NOTED (NOT SEEN); Hypochromasia 1+; Macrocytosis 2+; Platelet Estimate ADEQ; Polychromasia 2+; Target Cells 1+
[2020-03-30 09:49] VITALS: O2SAT 100
[2020-03-30 09:49] LABS: BUN Blood Urea Nitrogen 17 mg/dL (7-18); Bicarbonate 23 mmol/L (21-32); Glucose Level 95 mg/dL (74-106); Sodium Level 140 mmol/L (136-145)
[2020-03-30 09:52] LABS: Potassium 4.2 mmol/L (3.5-5.1)
--- NOTE | 2020-03-30 10:55 | P.DS ---
Admission Date: 03/22/20 Discharge Date: 03/30/20 Primary Care Provider: Dr. Jay-[facility]; Dr. Guaman-Hematology Disposition: ROUTINE DISCHARGE Discharge Condition: GOOD Reason for Admission: Sickle cell crisis Consultations: Hematology-Dr. 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 Patient with underlying history of sickle cell disease with prior admissions for crisis. Patient found to have sickle cell crisis. Patient admitted for further evaluation and treatment. Hospital Course: Patient presented with sickle cell crisis with severe generalized pain for further evaluation and treatment. Patient received IV fluids and pain control. The patient has done well during the course of her stay. CBC stable at this time and at baseline. Case discussed with hematology during the course of her stay. Patient stable for discharge at this time. Patient will continue with pain control at home. Recommend follow up with hematology-sickle cell specialist to further address her condition. Patient likely requires further treatment for reduction in recurrent pain crisis. This was addressed in detail with the patient. Patient plans to follow up with hematology within the next week. Patient will continue with her current pain regimen at this time. Patient may also benefit with pain management evaluation as an outpatient to further address. At discharge patient may continue with folic acid 1 mg daily. Patient also takes hydrocodone as needed for pain. Patient with hypertension. Medications have been adjusted. Additional medication includes Norvasc. At discharge patient will continue with Toprol-XL 25 mg 1 pill twice daily and Norvasc 2.5 mg 1 pill daily. Recommendation is to maintain blood pressures less 150/80. Further adjustment can be done by her PCP. Patient with underlying history of diastolic CHF. Patient had edema to the lower extremities requiring Lasix. This has improved. Patient without significant shortness of breath. At discharge, Patient will continue with a 1500 cc per day fluid restriction. Will provide Lasix 20 mg orally as needed for edema/shortness of breath. This can be further monitored and addressed by her PCP. On prior visit home oxygen was arranged. Patient may continue with this to maintain sats above 93%. Patient with history of anxiety. Will recommend to discontinue Remeron as this caused increased sedation. Patient may continue with her other medication including clonazepam 1 mg 3 times a day as needed for anxiety. She is to limit this medication. Vital Signs/Physical Exam: Temp Pulse Resp BP Pulse Ox 97.1 F 78 18 140/89 98 03/30/20 08:00 03/30/20 09:00 03/30/20 10:15 03/30/20 09:00 03/30/20 10:15 General: Alert, In no apparent distress, Oriented x3, Cooperative HEENT: Atraumatic Neck: Supple Respiratory: Clear to auscultation bilaterally, Normal air movement Cardiovascular: Normal pulses, Regular rate/rhythm Gastrointestinal: Normal bowel sounds Neurological: Normal speech, Normal strength at 5/5 x4 extr, Normal tone, Normal affect Laboratory Data at Discharge: WBC 16.9 K/uL (4.3-10.9) H D 03/30/20 05:20 Hgb 6.6 g/dL (12.0-15.0) L* 03/30/20 05:20 Hct 19.9 % (36.0-45.0) L* 03/30/20 05:20 Plt Count 191 K/uL (152-406) 03/30/20 05:20 Sodium 140 mmol/L (136-145) 03/30/20 05:20 Potassium 4.2 mmol/L (3.5-5.1) 03/30/20 05:20 BUN 17 mg/dL (7-18) 03/30/20 05:20 Creatinine 0.78 mg/dL (0.55-1.3) 03/30/20 05:20 Glucose 95 mg/dL (74-106) 03/30/20 05:20 Magnesium 2.1 mg/dL (1.8-2.4) 03/23/20 05:35 Total Bilirubin 3.7 mg/dL (0.2-1.0) H 03/22/20 13:45 AST 143 U/L (15-37) H 03/22/20 13:45 ALT 63 U/L (12-78) 03/22/20 13:45 Alkaline Phosphatase 217 U/L (45-117) H 03/22/20 13:45 Home Medications: Hydrocodone Bit/Acetaminophen [[place] 10-325 Tablet] 1 tab PO Q4H PRN 05/25/19 clonazePAM [Clonazepam] 1 mg PO TID 03/22/20 Amlodipine [Norvasc*] 2.5 mg PO DAILY #30 tab 03/30/20 Folic Acid 1 mg PO DAILY #90 tablet 03/30/20 Furosemide [Lasix] 20 mg PO DAILY PRN #30 tab 03/30/20 Metoprolol Succinate [Toprol Xl*] 25 mg PO BID 6AM 6PM #60 tab 03/30/20 New Medications: Folic Acid 1 mg PO DAILY #90 tablet Furosemide [Lasix] 20 mg PO DAILY PRN #30 tab PRN Reason: Shortness Of Breath Amlodipine [Norvasc*] 2.5 mg PO DAILY #30 tab Metoprolol Succinate [Toprol Xl*] 25 mg PO BID 6AM 6PM #60 tab Patient Discharge Instructions: 1. Recommend follow up with PCP within 1 week. 2. Patient presented with sickle cell crisis with severe generalized pain for further evaluation and treatment. Patient received IV fluids and pain control. The patient has done well during the course of her stay. CBC stable at this time and at baseline. Case discussed with hematology during the course of her stay. Patient stable for discharge at this time. Patient will continue with pain control at home. Recommend follow up with hematology-sickle cell specialist to further address her condition. Patient likely requires further treatment for reduction in recurrent pain crisis. This was addressed in detail with the patient. Patient plans to follow up with hematology within the next week. Patient will continue with her current pain regimen at this time. Patient may also benefit with pain management evaluation as an outpatient to further address. At discharge patient may continue with folic acid 1 mg daily. Patient also takes hydrocodone as needed for pain. 3. Patient with hypertension. Medications have been adjusted. Additional medication includes Norvasc. At discharge patient will continue with Toprol-XL 25 mg 1 pill twice daily and Norvasc 2.5 mg 1 pill daily. Recommendation is to maintain blood pressures less 150/80. Further adjustment can be done by her PCP. 4. Patient with underlying history of diastolic CHF. Patient had edema to the lower extremities requiring Lasix. This has improved. Patient without significant shortness of breath. At discharge, Patient will continue with a 1500 cc per day fluid restriction. Will provide Lasix 20 mg orally as needed for edema/shortness of breath. This can be further monitored and addressed by her PCP. On prior visit home oxygen was arranged. Patient may continue with this to maintain sats above 93%. 5. Patient with history of anxiety. Will recommend to discontinue Remeron as this caused increased sedation. Patient may continue with her other medication including clonazepam 1 mg 3 times a day as needed for anxiety. She is to limit this medication. Diet: AHA Activity: Fall precautions Time spent managing pt's care (in minutes): 55
[2020-03-30 13:37] VITALS: BP 155/88; TEMP 97.9
== END 2020-03-30 13:39 | disposition home or self-care (01) | DRG 812 ==
LOC: ER 11:55 → ERHOLD 15:50 → 2ND 16:51
PROVIDERS: ADMIT Internal Medicine; ATTEND Family Medicine
PROC: 30233N1 Transfusion of Nonautologous Red Blood Cells into Peripheral Vein, Percutaneous Approach (ICD-10-PCS; principal; 2020-03-24)
DX: D57.00 Hb-SS disease with crisis, unspecified (principal); I50.32 Chronic diastolic (congestive) heart failure; E87.5 Hyperkalemia; G89.29 Other chronic pain; I11.0 Hypertensive heart disease with heart failure; F41.9 Anxiety disorder, unspecified; I25.10 Atherosclerotic heart disease of native coronary artery without angina pectoris; D72.829 Elevated white blood cell count, unspecified; I27.20 Pulmonary hypertension, unspecified; D53.9 Nutritional anemia, unspecified; I25.2 Old myocardial infarction; Z88.5 Allergy status to narcotic agent; Z88.8 Allergy status to other drugs, medicaments and biological substances; Z79.891 Long term (current) use of opiate analgesic; Z79.899 Other long term (current) drug therapy; Z86.73 Personal history of transient ischemic attack (TIA), and cerebral infarction without residual deficits; Z90.49 Acquired absence of other specified parts of digestive tract; Z90.711 Acquired absence of uterus with remaining cervical stump
CPT/HCPCS: 36415; 36430; 70450; 71045; 80048; 80076; 81003; 81015; 83735; 83880; 84484; 85014; 85018; 85025; 85044; 86850; 86870; 86900; 86901; 86922; 87040; 87086; 87088; 93005; 93971; 96374; 96375; 99285; J0360; J1170; J1200; J1650; J1940; J2550; J3475; J7030; J7050; P9016